=== PATIENT | male | born 1940 | race Caucasian/White ===

== ENCOUNTER 2022-04-17 14:11 | Outpatient (CLI) | payer MEDICARE, OTHER, SELFPAY ==
--- OUTSIDE RECORDS SUMMARY | 2022-04-17 14:14 | XMS_ITS | Encounter Summary ---
:1940 Author Organization [facility] Address [address] [place] [id number] Support Name Relationship Address Phone SUZANNE SERRANO Unavailable [phone] [place] [phone] SUZANNE SERRANO Unavailable [address] [place] [phone] Insurance Providers: All historical and current Section Date Range: From patient's date of to the date document was created.This section includes the names of all active insurance providers for the patient. Insurance Type of Plan Start of End of Group Member Insurance Policy P marcia's Provider Coverage Name Policy Policy Number ID Provider's Blanchard's Relationship Coverage Coverage Telephone Name to Policy Number Blanchard MEDICARE MEDICARE PART Feb 06, PART A [id number] ALANNAHGonzalo GARCÍA (WNR) (M) A 2002 [id number] [phone] LEONARD MEDICARE MEDICARE PART Feb 06, PART B [id number] Gonzalo SERRANO (WNR) (M) B 2002 [id number] [phone] LEONARD MEDICARE MEDICARE RR Feb 06, RR PART [id number] [phone] KADER LIK, PATIENT (WNR) (M) PART 2002 A [id number] SHERYL A MEDICARE MEDICARE RR Feb 06, RR PART [id number] [phone] KADER LIK, PATIENT (WNR) (M) PART 2002 B [id number] SHERYL B MEDICARE MEDICARE PART Jun 08, PART D [id number] LESLYE BAEZA, PATIENT PART D (M) D 2017 [id number] SHERYL (WNR) [employer] MED[employer] MEDIC Jun 08 [id number] [phone] DANIEL SERRANO [facility] 2009 [id number] SHERYL PINEDAR[employer]communications KAREN SUPPL EMENT UNION MEDICARE UPREH Jun 08 [id number] [address] SERRANO [facility] S 2009 [id number] SHERYL PACK (NO B EXC) Selected Encounter This section includes the information on record at [place] for the Encounter. Date/Time Encounter Type Encounter Description Reason Provider Source Apr 30, 2021 10:25 Outpatient Encounter CLINICAL PHARMACY AM IHE Encounter Template Text not used by [place] Plan of Treatment: Future Appointments (+ 6 months) and Future Tests (+/- 45 days) The Plan of Treatment section includes future care activities for the patient [facility] This section includes future appointments and future orders which are active, pending orscheduled.Future Appointments This section includes appointments that were scheduled to occur 6 months from the date of the Encounter, up to a maximum of 20 appointments. The data comes from all [place] treatment facilities. Appointment Date/Time Appointment Type Appointment Facili ty Name May 21, 2021 12:30 PM AMBULATORY - MEDICINE [facility] May 28, 2021 12:40 PM [facility] NONE [facility] May 30, 2021 08:00 AM [facility]UL[facility]ORY - NONE [facility] Aug 12, 2021 10:30 AM AMBULATORY - NONE [facility] Social History: Smoking Status (Most current) and Tobacco Use (All prior to encounter date) This section includes the most current, and the historical, smoking and tobacco-related health factors from the [place] facility where the Encounter took place.Current Smoking Status This section includes the most current smoking, or tobacco-related health factor, from the [place] facility where the Encounter took place. Date/Time Current Smoking Status Comment Facility Dec 10, 2018 12:57 PM VA-TOBACCO QUIT 15 YRS OR MORE [facility] Tobacco Use History This section includes a history of the smoking, or tobacco- related health factors, that were collected on or before the date of the Encounter. The data comes from the [place] facility where the Encounter took place. Date/Time Smoking Status/Tobacco Use Comment [facility] Dec 10, 2018 12:57 PM VA-TOBACCO QUIT 15 YRS OR MORE [facility] Feb 25, 2018 12:23 PM VA-TOBACCO FORMER USER MIN [facility] Feb 25, 2018 12:23 PM VA-TOBACCO QUIT 15 YRS OR MORE [facility] Apr 10, 2015 02:55 PM FORMER TOBACCO USER 7Y OR GREATER [facility] Apr 27, 2014 10:17 AM FORMER TOBACCO USER 7Y OR GREATER [facility] Jun 18, 2006 07:23 AM FORMER TOBACCO USER 7Y OR GREATER [facility] Advance Directives: All historical and current Section Date Range: From patient's date of to the date document was created. This section includes ALL of a patient's completed or amended [place] Advance and Rescinded Directives. The entries below indicate that a directive exists for the patient, but an actual copy is not included with this document. The data comes from all [place] facilities. Date Advance Directives Provider Source May 23, 2003 ADVANCE DIRECTIVE LORRIEHEIDI [facility] Encounter Notes: All associated encounter notes This section contains the clinical notes associated to the Encounter. Date/Time Encounter Note(s) Provider Source Apr 30, 2021 10:25 AM PHARMACY NOTE: AMIE GREGORY [facility] LOCAL TITLE: PHARMACY PROGRESS NOTE STANDARD TITLE: PHARMACY NOTE DATE OF NOTE: APR 30, 2021@10:25 ENTRY DATE: APR 30, 2021@10:25:42 AUTHOR: AMIE GREGORY EXP COSIGNER: URGENCY: STATUS: COMPLETED Symbicort Autoconversion to Wixela Per [employer] (P&T) Committee and facility leadership approval, this patient's Sym bicort MDI (budesonide/formoterol) was converted to Wixela (fluticasone/salmeterol) DPI inhaler at t he appropriate strength and schedule with one year of refills. An informatio nal letter describing the conversion and Wixela Inhub inhaler instructions have been provided to the patient. Thank you for your cooperation. /katey/ AMIE GREGORY [facility] PHARMACIST Signed: 04/30/2021 10:25 Receipt Acknowledged By: * AWAITING SIGNATURE * CASANDRA DALTON
--- OUTSIDE RECORDS SUMMARY | 2022-04-17 14:14 | XMS_ITS | Encounter Summary ---
:1940 Author Organization [facility] Address [address] [place] [id number] Support Name Relationship Address Phone SUZANNE SERRANO Unavailable [phone] [place] [phone] SUZANNE SERRANO Unavailable [address] [place] [phone] Insurance Providers: All historical and current Section [...] MEDICARE MEDICARE PART Feb 06, PART A [id number] 800 ALANNAHGonzalo GARCÍA (WNR) (M) A 2002 [id number] [phone] LEONARD MEDICARE MEDICARE PART Feb 06, PART B [id number] 800 Gonzalo SERRANO (WNR) (M) B 2002 [id number] [phone] [employer]ARD MEDICARE MEDICARE RR Feb 06, RR PART [id number] [phone] KADER LIK, PATIENT (WNR) (M) PART 2002 A [id number] SHERYL A MEDICARE MEDICARE RR Feb 06, RR PART [id number] [id number] KADER LIK, PATIENT (WNR) (M) PART 2002 B [id number] 2 SHERYL B MEDICARE MEDICARE PART Jun 08, PART D [id number] LESLYE BAEZA, PATIENT PART D (M) D 2017 [id number] 5 SHERYL (WN) [employer] MEDICARE MEDIC Jun 08 [id number] [phone] DANIEL SERRANO [facility] ARE 2009 [id number] SHERYL PACK KAREN SUPPL EMENT [employer] MEDICARE UPREH Jun 08 [id number] DELORES SERRANO [facility] S [id number] SHERYL PACK (NO B EXC) Selected Encounter This section includes the information on record at [place] for the Encounter. Date/Time Encounter Type Encounter Reason Provider Source Description Apr 29, 2021 Outpatient TELEPHONE PRIMARY ICD-10-CM PAM DALTON 02:45 PM Encounter CARE N18.6 End R F stage renal disease with Provider Comments: End Stage Renal Disease IHE Encounter Template Text not used by [place] Assessments - Encounter Diagnoses This section includes the primary and secondary diagnoses documented for the Encounter. 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 This section includes future appointments and future orders which are active, pending orscheduled.Future Appointments This section includes appointments that were scheduled to occur 6 months from the date of the Encounter, up to a maximum of 20 appointments. The data comes from all [place] treatment facilities. Appointment Date/Time Appointment Type Appointment Facili ty Name May 21, 2021 12:30 PM AMBULATORY - MEDICINE [facility] May 28, 2021 12:40 PM AMBULATORY - NONE [facility] May 30, 2021 08:00 AM AMBULATORY - NONE [facility] Aug 12, 2021 10:30 AM AMBULATORY - NONE [facility] Social History: Smoking Status (Most current) and Tobacco Use (All prior to encounter date) This section includes the most current, and the historical, smoking and tobacco-related health factors from the [facility] where the Encounter took place.Current Smoking Status This section includes the most current smoking, or tobacco-related health factor, from the [place] facility where the Encounter took place. Date/Time Current Smoking Status Comment Facility Dec 10, 2018 12:57 PM VA-TOBACCO QUIT 15 YRS OR MORE [facility] Tobacco Use History This section includes a history of the smoking, or tobacco- related health factors, that were collected on or before the date of the Encounter. The data comes from the [facility] where the Encounter took place. Date/Time Smoking Status/Tobacco Use Comment Facil it Dec 10, 2018 12:57 PM VA-TOBACCO QUIT 15 YRS OR MORE [facility] Feb 25, 2018 12:23 PM VA-TOBACCO FORMER USER MIN [facility] Feb 25, 2018 12:23 PM VA-TOBACCO QUIT 15 YRS OR MORE [facility] Apr 10, 2015 02:55 PM FORMER TOBACCO USER 7Y OR GREATER [facility] Apr 27, 2014 10:17 AM FORMER TOBACCO USER 7Y OR GREATER [facility] Jun 18, 2006 07:23 AM FORMER TOBACCO USER 7Y OR GREATER [facility] Advance Directives: All historical and current Section Date Range: From patient's date of to the date document was created. This section includes ALL of a patient's completed or amended [place] Advance and Rescinded Directives. The entries below indicate that a directive exists for the patient, but an actual copy is not included with this document. The data comes from all [facility]. Date Advance Directives Provider Source May 23, 2003 ADVANCE DIRECTIVE [facility] ANDREW [facility] Encounter Notes: All associated encounter notes This section contains the clinical notes associated to the Encounter. Date/Time Encounter Note(s) Provider Source Apr 29, 2021 12:33 PM PACT NOTE: CASANDRA DALTON [facility] LOCAL TITLE: MEDICINE CLINIC PROVIDER TELEPHONE NOTE STANDARD TITLE: PACT NOTE DATE OF NOTE: APR 29, 2021@12:33 ENTRY DATE: APR 29, 2021@12:33:13 AUTHOR: CASANDRA DALTON EXP COSIGNER: URGENCY: STATUS: COMPLETED History: Will be leaving for winter home soon. COVID pneumonia, hospitalized at [facility] x 9 days. Had been vaccinated last spring. Got booster since discha rge from [facility]. Feeling back at baseline. Saw his primary care physician in the community, Dr. Xiong, within the last week or 2. Feels tired after hemodialysis which now occurs in [place], [place] at [facility] dialysis center. They were dissatisfied w ith the service they received at the previous dialysis center. That dialysis c enter is making arrangements for continued hemodialysis while away in [place] a t a private facility. Saw Dr Prater, urologist, [facility], has ordered straight-cathed weekly. hospitalized at [place] as well, also fo r COVID-19, recovered, back at home, planning to move to [place] for the winte r with her . Heading to [place], near [facility] border, i n mid-May, back around the end of September. Objective: Sounds comfortable while speaking on the telepho ne. Further examination not possible. Assessment/Plan: 1. End stage renal disease, HD-dependent 2. 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 Hypertension, unable to check today. 4. Coronary artery disease, asymptomatic Plan: Medications are reviewed, reconciled and renewed as appropriate Continue care with his community providers Traveling consult entered for weekly [facility] [place] See me for clinic appointment in mid October, at the ir convenience. Appointment is requested to accommodate their dialysis sched ule. Education/Counseling: Time spent c python developer: 21-30 minutes /es/ CASANDRA DALTON MD Staff Physician Signed: 04/29/2021 16:54
--- OUTSIDE RECORDS SUMMARY | 2022-04-17 14:14 | XMS_ITS | Continuity of Care Document ---
:1940 Author Organization [facility] Care Team Providers Name Role Phone [facility] Unavailable Unavailable Problems Combined list of problems from Department of Defense and [facility] facilities. It does not include entries that were removed or entered in error. 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, [place] arteriosclerosis 2006 Entered [facility] By: LIZZETTE WEI Comment: s/p [id number] at [facility] 07/15 Diabetes mellitus Active [place] [facility] Diabetic Active Condition [place] neuropathy [facility] 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, [place] disease 2018 Entered [facility] By: PAM DALTON Comment: 10/2018: started hemodialysis @ [facility] [place] Diabetic Active Condition [place] Retinopathy [facility] Associated with type II Diabetes Mellitus Dyslipidemia Active Condition [place] [facility] Essential Active Condition [place] hypertension [facility] Ganglion of wrist Active [place] [facility] Hypothyroidism Active Condition [place] [facility] Indwelling Active Condition [facility] catheter inserted Psoriasis Nos Active Condition [place] [facility] Shared care - Active Condition Dec 02, [place] oracle consultant and GP 2018 Entered [facility] By: PAM DALTON Comment: [phone] Apr 29, 2021 Entered By: PAM DALTON Comment: Test Desk Operator: Dr James Pérez [phone] Apr 29, 2021 Entered By: PAM DALTON Comment: [facility], [place], [place] Cough (ICD-9-CM Inactive Condition 03/23/2013 [place] 786.2) [facility] Diabetic Foot Inactive Condition 03/23/2013 [place] Ulcer (ICD-9-CM [facility] CS 250.80/707.8) Diagnosis: Active Diagnosis [place] ICD-10-CM Z71.9 [facility] CS Counseling, unspecifiedwith Provider Comments: Counseling, unspecified Diagnosis: Active Diagnosis [place] ICD-10-CM E11.22 [facility] 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 Medications provided include 1) outpatient medications from the last 15 months, and 2) patient-reported medications. Medication Details Route Status Patient Prescription Prescription Last Ordering Order Source Instructions Expires Number Dispense Provider Date Date ALBUTEROL INHALE 2 INHALA ACTIVE 04/30/2022 [id number] [place] 04/30/ [place] 90MCG/ACTUA PUFFS BY TION 2020 [place] [facility]) INHALATI HCS INHL,ORAL,8 ON EVERY .5GM DOSE 4 HOURS COUNTER NEEDED FOR BREATHIN G SHAKE WELL (FOR IMMEDIAT E RELIEF). ALBUTEROL INHALE 2 INHALA DISCONT 01/12/2022 [id number] CECILIA ROBERTSMANN 01/14/ [place] 90MCG/ACTUA PUFFS BY TION INUE ,2020 [place] ([facility]) INHALATI HCS INHL,ORAL,8 ON EVERY .5GM DOSE 4 HOURS COUNTER NEEDED FOR BREATHIN G SHAKE WELL (FOR IMMEDIAT E RELIEF). BUDESONIDE INHALE 2 INHALA DISCONT 04/30/2022 [id number] SHA 05/31/ [place] 160MCG/FORM PUFFS BY TION INUED 2020 [place] OTEROL FUM INHALATI (EDIT) HCS 4.5MCG/SPRA ON TWICE Y A DAY TO INHL,ORAL,1 PREVENT 0.2GM TROUBLE BREATHIN G -RINSE MOUTH AFTER USING BUDESONIDE INHALE 2 INHALA DISCONT 03/16/2021 [id number] WEISSMANN 05/31/ [place] 160MCG/FORM PUFFS BY TION INUE 1 ,2019 [place] OTEROL FUM INHALATI HCS 4.5MCG/SPRA ON TWICE Y A DAY TO INHL,ORAL,1 PREVENT 0.2GM TROUBLE BREATHIN G -RINSE MOUTH AFTER USING CALCIUM TAKE ONE ORALLY ACTIVE 04/30/2022 [id number] WEISSM ANDRE 04/30/ [place] ACETATE CAPSULE 1 ,2020 [place] 667MG (CA BY MOUTH HCS 169MG) CAP THREE TIMES A DAY TO BIND PHOSPHAT E COENZYME TAKE ONE ORALLY ACTIVE [facility] 03/23/ [place] Q10 CAP/TAB TABLET ,2012 [place] BY MOUTH HCS EVERY DAY CYCLOSPORIN INSTILL BOTH ACTIVE 03/25/2023 [id number] FB-PU RFEE 04/07/ [place] E 0.05% 1 DROP EYES 2 RST,MATHEW 2021 [place] (PF) BOTH OD HCS EMULSION,OP EYES H,0.4ML TWICE A DAY DEXTROMETHO TAKE 5 ORALLY ACTIVE 04/30/2022 [id number] WE ISSIGOR 04/30/ [place] RPHAN HBR ML (1 2 ,2020 [place] 10MG/GUAIFE TEASPOON HCS NESIN FUL) BY 100MG/5ML MOUTH (SF & AF) EVERY 8 SYRUP HOURS NEEDED FOR COUGH DEXTROMETHO TAKE 5 ORALLY DISCONT 03/16/2021 [id number] WE ISSMANN 03/17/ [place] RPHAN HBR ML (1 INUE 1 ,2019 [place] 10MG/GUAIFE TEASPOON HCS NESIN FUL) BY 100MG/5ML MOUTH (SF & AF) EVERY 8 SYRUP HOURS NEEDED FOR COUGH DIALYVITE TAKE 1 ORALLY ACTIVE 04/30/2022 [id number] SHARDA ANDRE 05/31/ [place] TAB TABLET 2 ,2020 [place] BY MOUTH HCS EVERY DAY DIALYVITE TAKE 1 ORALLY DISCONT 03/16/2021 [id number] TRACIE SSMANN 03/15/ [place] TAB TABLET INUE 1 ,CASANDRA Perez 2019 [place] BY MOUTH HCS EVERY DAY FLUTICASONE INHALE 1 INHALA ACTIVE 05/01/2022 [id number] W EISSMANN 04/30/ [place] 250MCG/SALM PUFF BY TION 2 ,CASANDRA Perez 2020 [place] ETEROL INHALATI HCS 50MCG ON TWICE INHL,ORAL,D A DAY TO ISKUS,60 PREVENT TROUBLE BREATHIN G -RINSE MOUTH AFTER USING FLUTICASONE SPRAY 1 NASAL ACTIVE 04/30/2022 [id number] W EISSMANN 04/30/ [place] PROPIONATE SPRAY IN 1 ,CASANDRA Perez 2020 [place] 50MCG/SPRAY EACH HCS SOLN,NASAL, NOSTRIL 16GM EVERY DAY USE REGULARL Y FOR RELIEF OF ALLERGIE S/CONGES TION INSULIN,ASP INJECT 5 SUBCUT ACTIVE 04/30/2022 [id number] [facility] 05/31/ [place] ART,HUMAN UNITS ANEOUS 2 ,CASANDRA Perez 2020 [place] A 100U/ML,NOV UNDER [facility] OLOG,FLEXPE THE SKIN N,3ML TWICE A DAY TO DECREASE BLOOD SUGAR-- INJECT IMMEDIAT LINDA BEFORE MEAL (PEN FILL APPROVED ) REPLACES REGULAR INSULIN PEN INSULIN,ASP INJECT 5 SUBCUT DISCONT 03/16/2021 [id number] [facility] 03/16/ [place] ART,HUMAN UNITS ANEOUS INUE 1 ,CASANDRA Perez 2019 [place] A 100U/ML,NOV UNDER [facility] OLOG,FLEXPE THE SKIN N,3ML TWICE A DAY TO DECREASE BLOOD SUGAR-- INJECT IMMEDIAT LINDA BEFORE MEAL (PEN FILL APPROVED ) REPLACES REGULAR INSULIN PEN INSULIN,GLA INJECT SUBCUT ACTIVE 04/30/2022 [id number] CECILIA [facility] 05/24/ [place] RGINE,HUMAN 18 UNITS ANEOUS 2 ,CASANDRA Perez 2020 O [place] 100 UNIT/ML UNDER [facility] INJ,SOLOSTA THE SKIN R,3ML EVERY DAY FOR DIABETES DISCAR D PEN 28 DAYS AFTER INITIAL USE INSULIN,GLA INJECT SUBCUT DISCONT 03/16/2021 [id number] [facility] 03/16/ [place] RGINE,HUMAN 18 UNITS ANEOUS INUE 1 ,CASANDRA 2019 [place] 100 UNIT/ML UNDER HCS INJ,SOLOSTA THE SKIN R,3ML EVERY DAY FOR DIABETES DO NOT MIX WITH OTHER INSULINS ISOSORBIDE TAKE ORALLY ACTIVE 04/14/2023 [id number] BERRYMA N, 04/15/ [place] MONONITRATE ONE-HALF 2 RODRÍGUEZ H 2021 [place] 30MG TAB,SA TABLET HCS BY MOUTH EVERY EVENING FOR HEART ISOSORBIDE TAKE ONE ORALLY DISCONT 04/30/2022 [id number] [facility] 04/30/ [place] MONONITRATE TABLET INUED 2 ,CASANDRA 2020 [place] 30MG TAB,SA BY MOUTH HCS EVERY DAY FOR CHEST PAIN ISOSORBIDE TAKE ONE ORALLY 03/16/2021 [id number] [facility] 04/21/ [place] MONONITRATE TABLET 1 ,CASANDRA 2019 [place] 60MG TAB,SA BY MOUTH HCS EVERY DAY FOR CHEST PAIN LEVOTHYROXI TAKE ONE ORALLY ACTIVE 04/30/2022 [id number] [facility] 05/20/ [place] NE NA TABLET 2 ,CASANDRA 2020 [place] 175MCG TAB BY MOUTH HCS (SYNTHROID) EVERY DAY FOR THYROID LEVOTHYROXI TAKE ONE ORALLY DISCONT 02/28/2022 [id number] [facility] 03/01/ [place] NE NA TABLET INUE 1 ,CASANDRA 2020 [place] 175MCG TAB BY MOUTH HCS (SYNTHROID) EVERY DAY FOR THYROID LIDOCAINE APPLY TOPICA ACTIVE 04/30/2022 [id number] WE[place] [place] 04/30/ [place] 4% SMALL LLY 2 ,CASANDRA 2020 [place] CREAM,TOP AMOUNT HCS EVERY 4 HOURS NEEDED FOR NEUROPAT HY PAIN LIDOCAINE APPLY TOPICA DISCONT 03/16/2021 [id number] WEISSM ANDRE 03/16/ [place] 4% SMALL LLY INUE 1 ,CASANDRA Perez 2019 [place] [facility] CREAM,TOP AMOUNT HCS EVERY 4 HOURS NEEDED FOR NEUROPAT HY PAIN MARINE TAKE ORALLY ACTIVE [facility] 04/04/ [place] P LIPID (FISH 1200MG ,CASANDRA Perez 2010 [place] OIL) BY MOUTH HCS CAP,ORAL EVERY DAY MONTELUKAST TAKE ONE ORALLY ACTIVE 04/30/2022 [id number] [facility] 04/30/ [place] NA 10MG TAB TABLET 2 ,CASANDRA Perez 2020 [place] BY MOUTH HCS EVERY DAY NITROGLYCER DISSOLVE SUBLIN ACTIVE [facility] 04/04 / [place] IN 0.4MG CASANDRA HUMPHRIES 2010 [place] [facility] TAB,SUBLING TABLET HCS UAL UNDER THE TONGUE PRN NON VA MED USE MISCEL ACTIVE [facility] [place] NOT LISTED CASANDRA RUBIO 2012 [place] [facility] BEE S HCS VITAMIN COMPLEX EVERY DAY PANTOPRAZOL TAKE ONE ORALLY ACTIVE 04/30/2022 [id number] [facility] 05/17/ [place] E NA 40MG TABLET 2 ,CASANDRA Perez 2020 [place] A TAB,EC BY MOUTH HCS EVERY DAY ONE-HALF HOUR BEFORE EATING. PANTOPRAZOL TAKE ONE ORALLY DISCONT 03/16/2021 [id number] [facility] 04/26/ [place] E NA 40MG TABLET INUE 1 ,CASANDRA 2019 [place] A TAB,EC BY MOUTH HCS EVERY DAY ONE-HALF HOUR BEFORE EATING. PRAVASTATIN TAKE ONE ORALLY ACTIVE 04/30/2022 [id number] [facility] 05/20/ [place] NA 40MG TAB TABLET 2 ,CASANDRA Perez 2020 [place] BY MOUTH HCS AT BEDTIME FOR CHOLESTE ROL PRAVASTATIN TAKE ONE ORALLY DISCONT 02/28/2022 [id number] [facility] 03/01/ [place] NA 40MG TAB TABLET INUE 1 ,CASANDRA 2020 [place] [facility] BY MOUTH HCS AT BEDTIME FOR CHOLESTE ROL PROBIOTIC TAKE 1 ORALLY ACTIVE ME MALAIKA [place] CAP CAPSULE VELMA2013 [place] [facility] BY MOUTH HCS EVERY DAY TIOTROPIUM INHALE INHALA DISCONT 04/30/2022 [id number] CECILIA DONNELLY 05/27/ [place] 18MCG ONE TION INUED 1 ,CASANDRA Perez 2020 [place] CAP,INHL,30 CAPSULE (EDIT) HCS IN INHALER BY INHALATI ON EVERY DAY FOR BREATHIN G TIOTROPIUM INHALE INHALA DISCONT 03/16/2021 [id number] CECILIA DONNELLY 04/20/ [place] 18MCG ONE TION INUE 1 ,2019 [place] CAP,INHL,30 CAPSULE HCS IN INHALER BY INHALATI ON EVERY DAY FOR BREATHIN G TIOTROPIUM INHALE INHALA ACTIVE 05/01/2022 [id number] WEISSM ANDRE 05/27/ [place] 2.5MCG/ACTU TWO TION 2 ,2020 [place] AT PUFFS BY HCS INHL,ORAL,6 INHALATI 0D,4GM ON EVERY DAY FOR BREATHIN G VANICREAM APPLY TO TOPICA ACTIVE 04/30/2022 [id number] CECILIA DONNELLY 04/30/ [place] DRY SKIN LLY 2 ,2020 [place] [facility] TOPICALL HCS Y EVERY DAY NEEDED FOR DRY SKIN VITAMIN E TAKE 1 ORALLY ACTIVE [place] 05/01/ [place] 400UNT CAP CAPSULE VELMA 2013 [place] [facility] BY MOUTH HCS EVERY DAY ZINC TAKE ORALLY ACTIVE [place],IN 04/11/ [place] SULFATE TAB 50MG BY VELMA 2014 [place] A MOUTH HCS EVERY DAY Allergies, Adverse Reactions, Alerts Combined list of allergies from Department of Defense and Veterans 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 It does not include entries that were removed or entered in error. Substance Category Reaction Severity Reaction Status Date Comments S ource type Reported ATORVASTATIN Propensity Pain in Propensity active [place] to adverse lower limb to adverse 9 [place] [facility] reactions reactions HCS to drug to drug (finding) (finding) DOXYCYCLINE Propensity PRURITIS, Propensity active [place] to adverse Eruption to adverse 4 L IS VA reactions reactions HCS to drug to drug (finding) (finding) LIPITOR Propensity Cramp Propensity active [place] to adverse to adverse 0 N VA reactions reactions CLIN IC to drug to drug (finding) (finding) LISINOPRIL Propensity Abdominal Propensity active [place] to adverse discomfort to adverse 7 [place]IS VA reactions reactions HCS to drug to drug (finding) (finding) METOCLOPRAMI Propensity Gynecomast Propensity active [place] DE to adverse ia to adverse 0 N VA reactions reactions CLIN IC to drug to drug (finding) (finding) OMEPRAZOLE Propensity Diarrhea Propensity active [place] to adverse to adverse 0 N VA reactions reactions CLIN IC to drug to drug (finding) (finding) SIMVASTATIN Propensity MUSLCE Propensity active [place] to adverse CRAMPS to adverse 4 LI S VA reactions reactions HCS to drug to drug (finding) (finding) Immunizations Combined list of available immunizations from the Department of Defense and Veterans 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 Immunization Series Date Administered Site Reaction Lot CVX Drug St atus Comments Source Given By Number Code Cellophane Wrapping Examiner INFLUENZA, complet [place] UNSPECIFIED 2020 ed [place] [facility] FORMULATION HC S ZOSTER 2 complet [place] RECOMBINANT 2020 ed [place] [facility] ZOSTER 1 complet [place] RECOMBINANT 2019 ed [facility] [place] [facility] INFLUENZA, complet [place] SEASONAL, 2019 ed [place] [facility] INJECTABLE, HC S PRESERVATIVE FREE INFLUENZA, complet DAVITA [place] UNSPECIFIED 2018 ed CLINIC [facility] [facility] INFLUENZA, complet [place] SEASONAL, 2017 ed [place] [facility] INJECTABLE, HC S PRESERVATIVE FREE INFLUENZA, complet [place] HIGH DOSE 2016 ed [facility] SEASONAL [facility] INFLUENZA, complet [place] HIGH DOSE 2014 ed [facility] SE[facility] PNEUMOCOCCAL complet Wyet h [place] CONJUGATE PCV 2015 ed [id number] [facility] [facility] 13 08/22 HCS INFLUENZA, complet [place] UNSPECIFIED 2013 ed [facility] FORM[facility] INFLUENZA, complet [place] UNSPECIFIED 2012 ed [facility] [place] [facility] PNEUMOCOCCAL, complet Meghan ck, [place] UNSPECIFIED 2012 ed [id number], [facility] [facility] 14 TDAP complet [facility] NG 2012 ed [place] [facility] TDAP complet [place] 2012 ed [facility] ZOSTER LIVE complet [employer] and [place] 2012 ed co [facility] [facility] Lot#[id number] HCS 44Exp 11APR 14 INFLUENZA, complet [place] UNSPECIFIED 2011 ed [facility] FORM[facility]ATION [facility] INFLUENZA, complet [place] UNSPECIFIED 2010 ed [facility] [place] [facility] INFLUENZA, complet [place] UNSPECIFIED 2009 ed [place] [facility] INFLUENZA, complet [place] UNSPECIFIED 2008 ed [place] [facility] FORM[facility]ATION HC S TD(ADULT) complet M [place] UNSPECIFIED 2007 ed [place] [facility] FORM[facility]ATION [facility] S INFLUENZA complet M [place] (HISTORICAL) 2006 ed [facility] H[facility] INFLUENZA complet M [place] (HISTORICAL) 2005 ed O [facility] H[facility] INFLUENZA, complet [place] UNSPECIFIED 2004 ed [facility] FORM[facility]ATION [facility] S INFLUENZA, complet [place] UNSPECIFIED 2003 ed [facility] [place] [facility] FOR[facility] PNEUMOCOCCAL, complet [place] UNSPECIFIED 2003 ed [facility] TD(ADULT) complet due nex t [place] UNSPECIFIED 2003 ed year [facility] INFLUENZA complet pt stat es [place] (HISTORICAL) 2002 ed he had a [facility] Influenza HCS vaccinati on this yr TD(ADULT) complet M [place] UNSPECIFIED 1994 ed [place] [facility] FORM[facility]ATION [facility] S Vital Signs Combined list of inpatient and outpatient Vital Signs from Department of Defense and Veterans Affairs, ranging from 12 months to all on record, depending upon the facility. Vital Sign Value Date Comments Source SYSTOLIC BLOOD PRESSURE 117 11/05/2021 10:06:01 [facility] DIASTOLIC BLOOD PRESSURE 64 11/05/2021 10:06:01 [facility] PULSE OXIMETRY 95% 11/05/2021 10:06:01 [place] [facility] WEIGHT 208 11/05/2021 10:06:01 [place] [facility] BMI 28kg/m2 11/05/2021 10:06:01 [place] [facility] PAIN 0 11/05/2021 10:06:01 [place] [facility] HEIGHT 72 11/05/2021 10:06:01 [place] [facility] TEMPERATURE 97.9 11/05/2021 10:06:01 [place] [facility] PULSE 73 11/05/2021 10:06:01 [place] [facility] RESPIRATION 18 11/05/2021 10:06:[address] [facility] Encounters Combined list of: 1) Encounters from Department of Veterans Affairs facilities going back up to the last 18 months. 2) Encounters from the Department of Defense facilities going back up to 280 months. Location Location Encounter Encounter Reason Attending ADM DC Stat us Disposition Source Details Type Number For Provider Date Date Visit Outpatient [id number] 12/27 [place] Encounter [id number] /2020 [place] [facility] [place] 26464-6.61 12/28 [place] En[place] [id number] /2020 [facility] 24671-9.61 12/31 [place] En[place] [id number] /2020 [facility] 12778-7.61 01/10 [place] En[place] [id number] /2020 [facility] 20027-9.61 02/21 [place] En[place] [id number] /2020 [facility] 59836-0.61 03/06 [place] En[place] [id number] /2020 [facility] [facility] [place] 23410-2.61 03/09 [place] En[place] [id number] /2020 [facility] 77575-5.61 04/04 [place] En[place] [id number] /2020 [facility] 90131-8.61 04/05 [place] En[place] [id number] /2020 [facility] 78905-7.61 04/05 [place] En[place] [id number] /2020 [place] [facility] [place] 60655-8.61 04/09 [place] En[place] [id number] /2020 [place] Outpatient 75879-5.61 Diagnos [place], 04/29 [place] Encounter [id number] is: CASANDRA Perez /2020 [place] ICD-10- HCS CM N18.6 End stage renal disease
[facility] Provide r Comment s: End Stage Renal Disease Outpatient 09404-1.61 04/30 [place] Encounter [id number] /2020 [place] [facility] [place] 12951-2.61 Diagnos CHRISTENSE 05/21 [place] EDUCATION [id number] is: NATALIA Hancock /2020 [place] [facility] NOC ICD-10- C[facility]ACE HCS INDIVID CM G47.33 Obstruc tive sleep apnea (adult) ([facility])
with Provide r Comment s: Obstruc tive Sleep Apnea (Adult) ([facility]) Outpatient 37989-9.74 05/28 [facility] [facility] Encounter [id number] /2020 [facility] 50091-7.61 05/28 [place] Encounter [id number] /2020 [facility] Outpatient 83545-5.74 NARAYANAN-LEG 05/28 [place] Encounter [id number] OFF,GRADY /2020 E N [facility] Outpatient 82836-1.74 05/29 [place] Encounter [id number] /2020 EN [facility] Outpatient 23845-1.74 NARAYANAN-LEG 05/29 [place] Encounter [id number] OFF,GRADY E N [facility] Outpatient 78938-6.74 05/29 [place] En[place] [id number] /2020 [place] [facility] [place] 75546-1.74 05/30 [facility] [facility] Encounter [id number] /2020 EN [facility] CASE 47826-9.61 PAULETTE CHAUHAN 06/03 [place] MANAGEMENT [id number] N M /2020 [facility] Outpatient 25815-7.74 07/16 [place] En[place] [id number] /2021 [facility] [place] [facility] [place] 74169-6.74 07/17 [facility] Encounter [id number] /[facility]21 [facility] [place] 90041-5.61 07/25 [place] Encounter [id number] /2021 [facility] Outpatient 94108-1.74 07/25 [place] Encounter [id number] /[facility] [facility] [place] 39373-5.61 08/06 [place] Encounter [id number] [facility] Outpatient 45456-0.74 08/06 [place] [id number] [facility] [place] 96464-4.74 08/12 [place] Encounter [id number] /[facility]21 [facility] [place] 73224-5.74 08/12 [place] [id number] [facility] 57433-1.74 08/15 [place] Encounter [id number] /[facility]21 [facility] 39064-9.61 08/19 [place] Encounter [id number] /2021 [facility] Outpatient 02929-6.74 08/21 [place] Encounter [id number] /[facility]21 [facility] 50193-6.74 09/06 [place] Encounter [id number] /[facility]21 [facility] 77634-2.61 10/11 [place] Encounter [id number] /2021 [facility] Outpatient 24859-0.61 10/15 [place] Encounter [id number] /2021 [facility] OFFICE O/P 37179-1.61 Diagnos Saskia MATHEWS 11/05 [place] EST [place] [id number] is: ALLY H [facility] 40-54 MIN ICD-10- HCS CM E11.22 Type 2 diabete s mellitu s w diabeti c chronic kidney disease
wi Provide r Comment s: Type 2 Diabete s Mellitu s with Diabeti c Chronic Kidney Disease CASE [id number] PAULETTE CHAUHAN 03/20 [place] MANAGEMENT [id number] N [facility] CASE 46909-8.61 TIENPAULETTE 03/21 [place] MANAGEMENT [id number] N [facility] Outpatient 26769-4.61 03/27 [place] Encounter [id number] /2021 [facility] Outpatient 54967-8.61 03/27 [place] Encounter [id number] /2021 [facility] CASE 74498-7.61 Diagnos PAULETTE CHAUHAN 04/08 [place] [facility] [id number] is: N [facility] ICD-10- HCS CM Z71.9 Photocomposing Keyboard Operator ing, unspeci fied
with Provide r Comment s: Photocomposing Keyboard Operator ing, unspeci fied Outpatient 11513-9.61 04/10 [place] Encounter [id number] /2021 [facility] Social History Combined list of available smoking, tobacco, and other social history from Department of Defense andVeterans 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 Social History Type Response Date Comment Source Tobacco smoking status VA-TOBACCO QUIT 15 YRS 11/05/2021 [facility] NHIS OR MORE History of tobacco use VA-TOBACCO FORMER USER 11/05/2021 [facility] History of tobacco use VA-TOBACCO QUIT 15 YRS 07/28/2019 [facility] OR MORE History of tobacco use VA-TOBACCO QUIT 15 YRS 12/10/2018 [facility] HCS OR MORE History of tobacco use VA-TOBACCO FORMER USER 02/25/2018 [facility] History of tobacco use FORMER TOBACCO USER 7Y 04/10/2015 [facility] OR GREATER History of tobacco use FORMER TOBACCO USER 7Y 04/27/2014 [facility] OR GREATER History of tobacco use FORMER TOBACCO USER 7Y 06/18/2006 [facility] OR GREATER Plan of Care List of future care activities from Department Veterans [facility] facilities. Additional future care activities may be listed in the Assessment and Plan section. Date/Time Care Activity Care Activity Detail Facility 03/20/2022 Consult Order [facility] CONSULT-ROSARIO Oteroan salima's Choice Advance Directives List of completed, amended, or rescinded Advance Directives on record at Department Veterans 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 An actual copy of the Directive is not included. Date Advance Directive Provider Source 05/23/2003 ADVANCE DIRECTIVE KINGS ANDREW [facility]
--- OUTSIDE RECORDS SUMMARY | 2022-04-17 14:15 | XMS_ITS | Encounter Summary ---
:1940 Author Organization [facility] Address [address] [place] [address] Support Name Relationship Address Phone SUZANNE SERRANO Unavailable [address] [place] [address] SUZANNE SERRANO Unavailable [address] [place] [phone] Insurance Providers: All historical and current Section [...] MEDICARE MEDICARE PART Feb 06, PART A [id number] 800 ALANNAHGonzalo GARCÍA (WNR) (M) A 2002 [phone] LEONARD MEDICARE MEDICARE PART Feb 06, PART B [id number] 800 Gonzalo SERRANO (WNR) (M) B 2002 [id number] [phone] LEONARD MEDICARE MEDICARE RR Feb 06, RR PART [id number] [id number] KAWILMER LIK, PATIENT (WNR) (M) PART 2002 A [id number] SHERYL A MEDICARE MEDICARE RR Feb 06, RR PART [id number] [id number] MIK LIK, PATIENT (WNR) (M) PART 2002 B [id number] SHERYL B MEDICARE MEDICARE PART Jun 08, PART D [id number] LESLYE BAEZA, PATIENT PART D (M) D 2017 [id number] SHERYL (WNR) UNION MEDICARE MEDIC Jun 08 [id number] [phone] DANIEL SERRANO [facility] [id number] SHERYL [employer] KAREN SUPPL EMENT UNION MEDICARE UPREH Jun 08 [id number] DELORES SERRANOMERLENE JUSTIN SECONDARY S 2009 [id number] SHERYL PACK (NO B EXC) Selected Encounter This section includes the information on record at [place] for the Encounter. Date/Time Encounter Type Encounter Reason Provider Source Description May 21, 2021 PT EDUCATION SLEEP MEDICINE ICD-10-CM G47.33 [facility] 12:30 PM NOC INDIVID Obstructive sleep VALENTINA CANDACE apnea (adult) (pediatric) with Provider Comments: Obstructive Sleep Apnea (Adult) (Pediatric) IHE Encounter Template Text not used by [facility] Assessments - Encounter Diagnoses This section includes the primary and secondary diagnoses documented for the Encounter. Date/Time Primary/Secondary Diagnosis Name Provider Source Diagnosis May 21, 2021 PRIMARY Obstructive sleep [facility] [place] [facility] 01:51 PM apnea (adult) [facility] (pediatric) Plan of Treatment: Future Appointments (+ 6 months) and Future Tests (+/- 45 days) The Plan of Treatment section includes future care activities for the patient from all [place] treatmentfacilities. This section includes future appointments and future orders which are active, pending orscheduled.Future Appointments This section includes appointments that were scheduled to occur 6 months from the date of the Encounter, up to a maximum of 20 appointments. The data comes from all [place] treatment facilities. Appointment Date/Time Appointment Type Appointment Facili ty Name May 28, 2021 12:40 PM AMBULATORY - NONE [facility] May 30, 2021 08:00 AM AMBULATORY - NONE [facility] Aug 12, 2021 10:30 AM AMBULATORY - NONE [facility] November 05, 2021 10:00 AM AMBULATORY - MEDICINE [facility] Social History: Smoking Status (Most current) and Tobacco Use (All prior to encounter date) This section includes the most current, and the historical, smoking and tobacco-related health factors from the [facility] facility where the Encounter took place.Current Smoking Status This section includes the most current smoking, or tobacco-related health factor, from the [place] facility where the Encounter took place. Date/Time Current Smoking Status Comment Facility Dec 10, 2018 12:57 PM VA-TOBACCO QUIT 15 YRS OR MORE [facility] Tobacco Use History This section includes a history of the smoking, or tobacco- related health factors, that were collected on or before the date of the Encounter. The data comes from the [place] facility where the Encounter took place. Date/Time Smoking Status/Tobacco Use Comment Facil ity Dec 10, 2018 12:57 PM VA-TOBACCO QUIT 15 YRS OR MORE [facility] Feb 25, 2018 12:23 PM VA-TOBACCO FORMER USER MIN [facility] Feb 25, 2018 12:23 PM VA-TOBACCO QUIT 15 YRS OR MORE [facility] Apr 10, 2015 02:55 PM FORMER TOBACCO USER 7Y OR GREATER [facility] Apr 27, 2014 10:17 AM FORMER TOBACCO USER 7Y OR GREATER [facility] Jun 18, 2006 07:23 AM FORMER TOBACCO USER 7Y OR GREATER [facility] Advance Directives: All historical and current Section Date Range: From patient's date of to the date document was created. This section includes ALL of a patient's completed or amended [place] Advance and Rescinded Directives. The entries below indicate that a directive exists for the patient, but an actual copy is not included with this document. The data comes from all [facility]. Date Advance Directives Provider Source May 23, 2003 ADVANCE DIRECTIVE KINGS ANDREW [facility] Encounter Notes: All associated encounter notes This section contains the clinical notes associated to the Encounter. Date/Time Encounter Note(s) Provider Source May 21, 2021 01:48 PM SLEEP MEDICINE NOTE: NATALIA BRIGHT [facility] LOCAL TITLE: SLEEP MEDICINE NOTE CANDACE STANDARD TITLE: SLEEP MEDICINE NOTE DATE OF NOTE: MAY 21, 2021@13:48 ENTRY DATE: MAY 21, 2021@13:48:46 AUTHOR: NATALIA BRIGHT EXP COSIGNER: URGENCY: STATUS: COMPLETED HOME CONTINUOUS POSITIVE AIRWAY PRESSURE(CPAP) P JOHNSON OF CARE/EDUCATION Diagnosis: CHLOE Prescription: Date of Prescription: May APAP Minimum Pressure 10 cm/H2O Maximum Pressure 20 cm/H2O EPR 1 cm/H2O REASON FOR VISIT Equipment Replacement machine issued - older S9 issued 201 4 has stopped working as designed Download May Current settings: APAP 10-20 cmH2O 95% pressure: 12 cmH2O Compliance: Usage 100%; 7.5 average hours/night Mask seal: leak 34 L/min Apnea/Hypopnea Index (AHI): 1.5 per hour EDUCATION IDENTIFIED NEEDS: Review of disease, and correct operation of medical equipment. Discussed increase risk of motor vehicle acciden ts due to sleepiness. Patient cautioned not to drive if drowsy. PARTICIPANTS: Patient TEACHING STRATEGY: 1:1 instruction OBJECTIVES: Demonstrates the safe operation of a APAP unit, Demonstrates Ramp use, Demonstrates trial of prescribed pressure, Demon strates adjusting the mask, Demonstrates adding humidity/heat, Demonstrates cleaning of equipment ASSESSMENT: Verbalizes critical information about the topic Written instructions including equipment use and maintenance as well as phone number for questions/supplies provided wit h all issued equipment. FOLLOW-UP Patient gave consent to view PAP data or change settings remotely via wireless modem. Patient instructed to call with problems/questio ns or if symptoms aren't improved. /katey/ NATALIA BRIGHT RRT QUEBRACHO TANNER Signed: 05/21/2021 13:51
--- OUTSIDE RECORDS SUMMARY | 2022-04-17 14:17 | XMS_ITS | Encounter Summary ---
:1940 Author Organization [facility] Address [address] [place] [address] Support Name Relationship Address Phone SUZANNE SERRANO Unavailable [address] [place] [phone] SUZANNE SERRANO Unavailable [address] [place] [phone] Insurance Providers: All historical and current Section Date Range: From patient's date of to the date document was created.This section includes the names of all active insurance providers for the patient. Insurance Type of Plan Start of End of Group Member Insurance Policy P atibis's Provider Coverage Name Policy Policy Number ID Provider's Blanchard's Relationship Coverage Coverage Telephone Name to Policy Number Blanchard MEDICARE MEDICARE PART Feb 06, PART B [id number] 800 Gonzalo SERRANO (WNR) (M) B 2002 [id number] [phone] LEONARD MEDICARE MEDICARE PART Feb 06, PART A [id number] 800 Gonzalo SERRANO (WNR) (M) A 2002 [id number] [phone] LEONARD MEDICARE MEDICARE RR Feb 06, RR PART [id number] KAWILMER LIK, PATIENT (WNR) (M) PART 2002 A [id number] SHERYL A MEDICARE MEDICARE RR Feb 06, RR PART [id number] MIK LIK, PATIENT (WNR) (M) PART 2002 B [id number] 2 SHERYL B MEDICARE MEDICARE PART Jun 08, PART D [id number] LESLYE BAEZA, PATIENT PART D (M) D 2017 [id number] 5 SHERYL (WNR) UNION MEDICARE MEDIC Jun 08 [id number] [phone] DANIEL SERRANO PACIFIC SUPPLEMEN ARE 2009 [id number] SHERYL PACK KAREN SUPPL EMENT UNION MEDICARE UPREH Jun 08 [id number] DELORES SERRANO TIENT [facility] SECONDARY S [id number] SHERYL PACK (NO B EXC) Selected Encounter This section includes the information on record at [place] for the Encounter. Date/Time Encounter Type Encounter Description Reason Provider Source May 28, 2021 12:00 Outpatient Encounter ADMIN PAT ACTIVTIES AM (MASNONCT) IHE Encounter Template Text not used by [place] Plan of Treatment: Future Appointments (+ 6 months) and Future Tests (+/- 45 days) The Plan of Treatment section includes future care activities for the patient from all [place] treatmentfacilities. This section includes future appointments and future orders which are active, pending orscheduled.Future Appointments This section includes appointments that were scheduled to occur 6 months from the date of the Encounter, up to a maximum of 20 appointments. The data comes from all [place] treatment facilities. Appointment Date/Time Appointment Type Appointment Facili ty Name May 30, 2021 08:00 AM AMBULATORY - NONE [facility] Aug 12, 2021 10:30 AM AMBULATORY - NONE [facility] November 05, 2021 10:00 AM AMBULATORY - MEDICINE [facility] Advance Directives: All historical and current Section Date Range: From patient's date of to the date document was created. This section includes ALL of a patient's completed or amended [place] Advance and Rescinded Directives. The entries below indicate that a directive exists for the patient, but an actual copy is not included with this document. The data comes from all [place] facilities. Date Advance Directives Provider Source May 23, [address] [facility] Encounter Notes: All associated encounter notes This section contains the clinical notes associated to the Encounter. Date/Time Encounter Note(s) Provider Source May 28, 2021 12:00 AM NONVA CONSULT: [facility] LOCAL TITLE: COMMUNITY CARE-CONSULT RESULT NOTE STANDARD TITLE: NONVA CONSULT DATE OF NOTE: MAY 28, 2021 ENTRY DATE: MAY 30@11:18:39 AUTHOR: GABRIEL CHANDLER EXP COSIGNER: URGENCY: STATUS: COMPLETED VistA Imaging - Scanned Document UROLOGY ORDERS 05/28/2021 DR. VICTORINO AVILA SCANNED DOCUMENT SIGNATURE NOT REQUIRED Electronically Filed: 05/30/2021 by: GABRIEL CHANDLER May 28, 2021 12:00 AM NONVA CONSULT: [facility] LOCAL TITLE: COMMUNITY CARE-CONSULT RESULT NOTE STANDARD TITLE: NONVA CONSULT DATE OF NOTE: MAY 28, 2021 ENTRY DATE: MAY 30@11:20:27 AUTHOR: GABRIEL CHANDLER EXP COSIGNER: URGENCY: STATUS: COMPLETED VistA Imaging - Scanned Document UROLOGY NOTE 05/28/2021 DR. VICTORINO AVILA SCANNED DOCUMENT SIGNATURE NOT REQUIRED Electronically Filed: 05/30/2021 by: GABRIEL CHANDLER
--- OUTSIDE RECORDS SUMMARY | 2022-04-17 14:17 | XMS_ITS | Encounter Summary ---
:1940 Author Organization [facility] Address [address] [place] [address] Support Name Relationship Address Phone SUZANNE SERRANO Unavailable [address] [place] [phone] SUZANNE SERRANO Unavailable [address] [place] [phone] Insurance Providers: All historical and current Section [...] MEDICARE MEDICARE PART Feb 06, PART A [id number] 800 Gonzalo SERRANO (WNR) (M) A 2002 [id number] [phone] LEONARD MEDICARE MEDICARE PART Feb 06, PART B [id number] 800 Gonzalo SERRANO (WNR) (M) B 2002 [id number] [phone] LEONARD MEDICARE MEDICARE RR Feb 06, RR PART [id number] [id number] MIK CHAND, PATIENT (WNR) (M) PART 2002 A [id number] SHERYL A MEDICARE MEDICARE RR Feb 06, RR PART [id number] [phone] MIK CHAND, PATIENT (WNR) (M) PART 2002 B [id number] 2 SHERYL B MEDICARE MEDICARE PART Jun 08, PART D [id number] LESLYE BAEZA, PATIENT PART D (M) D 2017 [id number] 5 SHERYL (WNR) UNION MEDICARE MEDIC Jun 08 [id number] [phone] DANIEL SERRANO PACIFIC SUPPLEMEN ARE 2009 [id number] SHERYL PACK KAREN SUPPL EMENT UNION MEDICARE UPREH Jun 08 [id number] DELORES SERRANO TIEMERLENE COMO SECONDARY S 2009 [id number] SHERYL PACK (NO B EXC) Selected Encounter This section includes the information on record at [place] for the Encounter. Date/Time Encounter Type Encounter Description Reason Provider Source May 29, 2021 01:58 Outpatient Encounter VA-REFER TO [facility] PROV PM IHE Encounter Template Text not used by [place] Plan of Treatment: Future Appointments (+ 6 months) and Future Tests (+/- 45 days) The Plan of Treatment section includes future care activities for the patient from all [place] treatmentfacilities. This section includes future appointments and future orders which are active, pending orscheduled.Future Appointments This section includes appointments that were scheduled to occur 6 months from the date of the Encounter, up to a maximum of 20 appointments. The data comes from all [place] treatment facilities. Appointment Date/Time Appointment Type Appointment Facili ty Name May 30, 2021 08:00 AM AMBULATORY - NONE [facility] Aug 12, 2021 10:30 AM AMBULATORY - NONE [facility] November 05, 2021 10:00 AM AMBULATORY - MEDICINE [facility] CS Advance Directives: All historical and current Section Date Range: From patient's date of to the date document was created. This section includes ALL of a patient's completed or amended [place] Advance and Rescinded Directives. The entries below indicate that a directive exists for the patient, but an actual copy is not included with this document. The data comes from all [place] facilities. Date Advance Directives Provider Source May 23, 2003 ADVANCE DIRECTIVE [facility] ANDREW [facility] Encounter Notes: All associated encounter notes This section contains the clinical notes associated to the Encounter. Date/Time Encounter Note(s) Provider Source May 29, 2021 02:03 HOME HEALTH INITIAL EVALUATION NOTE: [facility] TITLE: HOME CARE [place] SKILLED NOTE STANDARD TITLE: HOME HEALTH INITIAL EVALUATION N OTE DATE OF NOTE: MAY 29, 2021@14:03 ENTRY DATE: MAY 29, 2021@14:03:18 AUTHOR: CASANDRA LEWIS EXP COSIGNER: URGENCY: STATUS: COMPLETED PCP Certification: I certify that this patient is under my care and that I, or a Nurse Practitioner or Physician Heel Reducer working with me or a Physician who cared for the patient in an acute or post-ac [place] facility had an encounter related to the primary reason the linda ent requires Home Health. HOMEBOUND: PLEASE NOTE PATIENTS DO NOT NEED TO MEET MEDICARE HOMEBOUND CRITERIA FOR THESE HOME HEALTH SERVICES. IS homebound as absences from the home r equires considerable and taxing effort due to: Decreased activity darien erance, endurance, Requires aid of supportive device walker, cane, wheelchair) to leave home HOME HEALTH ORDERS: SEOC: SKILLED HOME CARE BUNDLED PATIENT INFORMATION: Name: SHERYL SERRANO : Feb SSN: [id number] Address: [address] [place] [phone] Provider: [facility] Address: [address] [place] [address] City: [place] State: [place] Zip: [address] EMAIL: [email or web address] NPI : [id number] [place] Ordering Provider: DR. NARAYANAN NPI# [id number] CATEGORY OF CARE/TYPE OF SPECIALTY: HOME HEALTH Diagnosis Code/Chief Complaint: Benign prostatic hyperplasia with lower urinary tract symptoms(ICD-10-CM N40.1) TYPE OF SERVICE/PROCEDURE, NUMBER OF VISITS, SONIA QUENCY AND DURATION: FOLLOW PHYSICIAN ORDERS 1. [facility] SERVICES FOR: General Assessm ent, education, Treatments. MONAE CATHETER MANAGEMENT. WEEKLY BLADDER DRAINAGE USING A 16 [place]UGUESE COUDE CATHETER. SKILLED NURSE TO FLUSH/IR RIGATE BLADDER WITH SALINE UNTIL URINE FLOWS CLEAR. FREQUENCY: PER PCP ORDER AND CLINICALLY NECE SSARY AND DETERMINED BY TREATMENT PLAN EPISODE OF CARE: CERTIFICATION PERIOD EFFECTIVE: 05-29-2021 Eligibility Type/FUNDING for this Episode of Car e is: [facility] MAIL OR FAX 485's + PHYSICIAN ORDERS (must inclu de patient SS# + )+ SELF ADDRESSED STAMPED ENVELOPE TO: Facility Name: [facility] [address] Address: [address] City: [place] State: [place] Zip: [address] OR Fax ORDERS TO: [phone](CALL TO MAKE SURE THEY WERE RECEIVED) /es/ CASANDRA LEWIS RN, MSN Signed: 05/29/2021 14:03 May 29, 2021 02:01 [facility] NOTE: CASANDRA LEWISIVY [facility] PM << Interdisciplinary Note >> LOCATION: B [facility] CCT REFERRAL VISIT DATE: MAY 092020@13:58 LOCAL TITLE: [facility] PARENT EXTENDED CARE REFERRAL(P 6) STANDARD TITLE: [facility] NOTE DATE OF NOTE: MAY 29, 2021@14:01 ENTRY DATE: MAY 29, 2021@14:01:50 AUTHOR: CASANDRA LEWIS EXP COSIGNER: URGENCY: STATUS: COMPLETED [facility] PARENT EXTENDED CARE REFERRAL(P6) Has A DDENDA [facility] PARENT EXTENDED CARE REFERRAL /es/ CASANDRA LEWIS RN, MSN Signed: 05/29/2021 14:02 07/17/2021 ADDENDUM STATUS: COMPLETED Monae Catheter / Bladder Irr igation to be performed with 80 mg of Gentramicin in 500mL of sterile saline /es/ GRADY WADE M.D. GROUND WATER PUMP INSTALLER Signed: 07/17/2021 10:13 << Interdisciplinary Note - Cont. >> LOCAL TITLE: [facility] REFERRAL PHYSICIAN/LIP NOTE (C6 ) STANDARD TITLE: GERIATRIC MEDICINE REFERRAL NOTE DATE OF NOTE: MAY 29, 2021@11:28 STATUS: COMPLET ED GOALS OF CARE: FPC care (e.g., manage wounds, medi johnathon devices, catheters, ostomy). REFERRING TO WHICH PROGRAM: Skilled care in home ESTIMATED DURATION OF SERVICES: 2-3 months PROGNOSIS: In the last 7 days, the patient has experienced a flare-up of a recurrent or chronic health problem. The direct care staff (MD, RN, Rehabilitation) thinks the patient IS capable of increased independence (in ADL's, IA DL's, or mobility). The patient DOES NOT HAVE a limited life expect chrissy (likely to be less than 6 months). WEIGHT BEARING STATUS: Patient is partial weight-bearing. DIET: Patient is on a modified diet (specify): Diabetic diet EQUIPMENT NEEDED: SUPPLIES NEEDED: Catheters Tubing Saline Consult to Geriatrics/Extended Care ordered. /es/ GRADY WADE M.D. GROUND WATER PUMP INSTALLER Signed: 05/29/2021 11:31
--- OUTSIDE RECORDS SUMMARY | 2022-04-17 14:17 | XMS_ITS | Encounter Summary ---
:1940 Author Organization [facility] Address [address] [place] [address] Support Name Relationship Address Phone SUZANNE SERRANO Unavailable [address] [place] [phone] SUZANNE SERRANO Unavailable [address] [place] [phone] Insurance Providers: All historical and current Section [...] MEDICARE MEDICARE PART Feb 06, PART A [id number] 800 ALANNAHGonzalo GARCÍA (WNR) (M) A 2002 [id number] [phone] LEONARD MEDICARE MEDICARE PART Feb 06, PART B [id number] 800 ALANNAHGonzalo GARCÍA (WNR) (M) B 2002 [id number] [phone] LEONARD MEDICARE MEDICARE RR Feb 06, RR PART [id number] [id number] KAWILMER LIK, PATIENT (WNR) (M) PART 2002 A [id number] SHERYL A MEDICARE MEDICARE RR Feb 06, RR PART [id number] [id number] KAWILMER LIK, PATIENT (WNR) (M) PART 2002 B [id number] 2 SHERYL B MEDICARE MEDICARE PART Jun 08, PART D [id number] [id number] LESLYE BAEZA, PATIENT PART D (M) D 2017 [id number] 5 SHERYL (WNR) UNION MEDICARE MEDIC Jun 08 [id number] [phone] DANIEL [facility]ERR[facility]O [facility] 2009 [id number] SHERYL CHPandaBed KAREN SUPPL EMENT UNION MEDICARE UPREH Jun 08 [id number] DELORES SERRANO TIENT [facility] S 2009 [id number] SHERYL PACK (NO B EXC) Selected Encounter This section includes the information on record at [place] for the Encounter. Date/Time Encounter Type Encounter Reason Provider Source Description May 28, 2021 Outpatient COMMUNITY [facility]ARE MAGDALENE WADE 12:40 PM Encounter CONSULT SHAILA PARSONS Encounter Template Text not used by [place] Plan of Treatment: Future Appointments (+ 6 months) and Future Tests (+/- 45 days) The Plan of Treatment section includes future care activities for the patient from all [place] treatmentfacilities. This section includes future appointments and future orders which are active, pending orscheduled.Future Appointments This section includes appointments that were scheduled to occur 6 months from the date of the Encounter, up to a maximum of 20 appointments. The data comes from all [place] treatment facilities. Appointment Date/Time Appointment Type Appointment Facili ty Name May 30, 2021 08:00 AM AMBULATORY - NONE [facility] Aug 12, 2021 10:30 AM AMBULATORY - NONE [facility] November 05, 2021 10:00 AM AM[facility]ULATORY - MEDICINE [facility] Advance Directives: All historical and current Section Date Range: From patient's date of to the date document was created. This section includes ALL of a patient's completed or amended [place] Advance and Rescinded Directives. The entries below indicate that a directive exists for the patient, but an actual copy is not included with this document. The data comes from all [place] facilities. Date Advance Directives Provider Source May 23, 2003 ADVANCE DIRECTIVE [facility] AND[facility]W [facility] Encounter Notes: All associated encounter notes This section contains the clinical notes associated to the Encounter. Date/Time Encounter Note(s) Provider Source Jul 17, 2021 11:53 GERIATRIC MEDICINE REFERRAL NOTE: GRADY HUDSON [facility] AM LOCATION: [facility]-UROLOGY VISIT DATE: MAY 28 021@12:40 P[place]AVI LOCAL TITLE: [facility] REFERRAL PHYSICIAN/LIP NOTE (C6 ) STANDARD TITLE: GERIATRIC MEDICINE REFERRAL NOTE DATE OF NOTE: JUL 17, 2021@11:53 ENTRY DATE: JUL 17, 2021@11:53:21 AUTHOR: GRADY WADE EXP COSIGNER: URGENCY: STATUS: COMPLETED GOALS OF CARE: senior living care (e.g., manage wounds, medi johnathon devices, catheters, ostomy). REFERRING TO WHICH PROGRAM: Skilled care in home ESTIMATED DURATION OF SERVICES: One month PROGNOSIS: In the last 7 days, the [...] (specify): Diabetic diet EQUIPMENT NEEDED: SUPPLIES NEEDED: Saline Consult to Geriatrics/Extended Care ordered. /katey/ GRADY WADE M.D. HAND ZIPPER TRIMMER Signed: 07/17/2021 11:57 --- Interdisciplinary Note --- << Interdisciplinary Note >> LOCATION: [facility] CCT REFERRAL VISIT DATE: Jul@14:16 LOCAL TITLE: [facility] PARENT EXTENDED CARE REFERRAL(P 6) STANDARD TITLE: [facility] NOTE DATE OF NOTE: JUL 17, 2021@14:21 ENTRY DATE: JUL 17, 2021@14:21:41 AUTHOR: CASANDRA LEWIS EXP COSIGNER: URGENCY: STATUS: COMPLETED [facility] PARENT EXTENDED CARE REFERRAL /es/ CASANDRA LEWIS RN, MSN Signed: 07/17/2021 14:22 << Interdisciplinary Note - Cont. >> LOCAL TITLE: [facility] REFERRAL PHYSICIAN/LIP NOTE (C6 ) STANDARD TITLE: GERIATRIC MEDICINE REFERRAL NOTE DATE OF NOTE: JUL 17, 2021@11:53 STATUS: COMPLET ED GOALS OF CARE: senior living care (e.g., manage wounds, medi johnathon devices, catheters, ostomy). REFERRING TO WHICH PROGRAM: Skilled care in home ESTIMATED DURATION OF SERVICES: One month PROGNOSIS: In the last 7 days, the [...] (specify): Diabetic diet EQUIPMENT NEEDED: SUPPLIES NEEDED: Saline Consult to Geriatrics/Extended Care ordered. /katey/ GRADY WADE M.D. HAND ZIPPER TRIMMER Signed: 07/17/2021 11:57
--- OUTSIDE RECORDS SUMMARY | 2022-04-17 14:17 | XMS_ITS | Encounter Summary ---
:1940 Author Organization [facility] Address [address] [place] [address] Support Name Relationship Address Phone SUZANNE SERRANO Unavailable [address] [place] [phone] SUZANNE SERRANO Unavailable [address] [place] [phone] Insurance Providers: All historical and current Section [...] MEDICARE MEDICARE PART Feb 06, PART A [id number] 800 ALANNAHGonzalo GARCÍA (WNR) (M) A 2002 [id number] LEONARD MEDICARE MEDICARE PART Feb 06, PART B [id number] 800 ALANNAHGonzalo GARCÍA (WNR) (M) B 2002 [phone] LEONARD MEDICARE MEDICARE RR Feb 06, RR PART [id number] KAWILMER LIK, PATIENT (WNR) (M) PART 2002 A [id number] SHERYL A MEDICARE MEDICARE RR Feb 06, RR PART [id number] KADER LIK, PATIENT (WNR) (M) PART 2002 B [id number] SHERYL B MEDICARE MEDICARE PART Jun 08, PART D [id number] LESLYE BAEZA, PATIENT PART D (M) D 2017 [id number] SHERYL (WNR) UNION MEDICARE MEDIC Jun 08 [id number] [phone] JANETTEVannesa DANIEL PACIFIC SUPPLEMEN ARE 2009 [id number] SHERYL PACK KAREN SUPPL EMENT UNION MEDICARE UPREH Jun 08 [id number] DELORES SERRANOMERLENE SOLANO [facility]ARY S 2011 [id number] SHERYL PACK (NO B EXC) Selected Encounter This section includes the information on record at [place] for the Encounter. Date/Time Encounter Type Encounter Description Reason Provider Source May 29, 2021 11:17 Outpatient Encounter COMMUNITY CARE AM CONSULT IHE Encounter Template Text not used by [place] Plan of Treatment: Future Appointments (+ 6 months) and Future Tests (+/- 45 days) The Plan of Treatment section includes future care activities for the patient from all [place] treatmentfacilities. This section includes future appointments and future orders which are active, pending orscheduled.Future Appointments This section includes appointments that were scheduled to occur 6 months from the date of the Encounter, up to a maximum of 20 appointments. The data comes from all [place] treatment facilities. Appointment Date/Time Appointment Type Appointment Facili ty Name May 30, 2021 08:00 AM AMBULATORY - NONE [facility] Aug 12, 2021 10:30 AM AMBULATORY - NONE [facility] November 05, 2021 10:00 AM AMBULATORY - MEDICINE [facility] Advance Directives: All historical and current Section Date Range: From patient's date of to the date document was created. This section includes ALL of a patient's completed or amended [place] Advance and Rescinded Directives. The entries below indicate that a directive exists for the patient, but an actual copy is not included with this document. The data comes from all [place] facilities. Date Advance Directives Provider Source May 23, 2003 ADVANCE DIRECTIVE [facility] Encounter Notes: All associated encounter notes This section contains the clinical notes associated to the Encounter. Date/Time Encounter Note(s) Provider Source May 29, 2021 11:17 AM COMMUNICATION NOTE: EZ MANUEL SYL [facility] LOCAL TITLE: [facility] NOTE STANDARD TITLE: COMMUNICATION NOTE DATE OF NOTE: MAY 29, 2021@11:17 ENTRY DATE: MAY 29, 2021@11:17:38 AUTHOR: EZ MANUEL EXP COSIGNER: URGENCY: STATUS: COMPLETED SECONDARY AUTHORIZATION REQUEST RECEIVED Received medical records [facility] verito Martins which were forwarded to [facility] for scanning in to [place]. The provider is recommendi ng the services listed below, will notify PACT Provider to add care/di agnostic requested as an added comment to consult indicated below. REFER TO ORIGINAL CONSULT: 04/30/2021 [facility] Consult: [id number] Dr. Trey Martins is request ing Authorization for Skilled Home Health Services. being treated for urinary retention and requires weekly bladder irrigation. (Services to begin this week before [place]) [employer] [facility] [address] [place] [id number] P: [phone] F: [phone] REQUESTED SERVICES/PROCEDURES: Treatment/Orders: Using Asep tic technique and sterile supplies, Skilled Nurse to perform weekly bladder drain age using a 16 [place] Cou[place] Catheter. Skilled Nurse to flush/irrigate bladder with saline until urin e flows clear. R33.9 Retention of Urine, unspecified N31.9 Neuromuscular Dysfunction of Bladder, unsp ecified N18.6 End Stage Renal Disease E11.8 Type 2 Diabetes Mellitus with unspecified Complications /es/ EZ MAR BENÍTEZ, RN Signed: 05/29/2021 11:18 Receipt Acknowledged By: * AWAITING SIGNATURE * GRADY WADE
--- OUTSIDE RECORDS SUMMARY | 2022-04-17 14:17 | XMS_ITS | Encounter Summary ---
:1940 Author Organization Department [facility] Address [address] [place] [address] Support Name Relationship Address Phone SUZANNE SERRANO Unavailable [address] [place] [phone] SUZANNE SERRANO Unavailable [address] [place] [phone] Insurance Providers: All historical and current Section [...] MEDICARE MEDICARE PART Feb 06, PART A [id number] 800 ALANNAHGonzalo GARCÍA (WNR) (M) A 2002 [id number] LEONARD MEDICARE MEDICARE PART Feb 06, PART B [id number] 800 Gonzalo SERRANO (WNR) (M) B 2002 [id number] LEONARD MEDICARE MEDICARE RR Feb 06, RR PART [id number] KADER LIK, PATIENT (WNR) (M) PART 2002 A [id number] SHERYL A MEDICARE MEDICARE RR Feb 06, RR PART [id number] KADER LIK, PATIENT (WNR) (M) PART 2002 B [id number] 2 SHERYL B MEDICARE MEDICARE PART Jun 08, PART D [id number] LESLYE BAEZA, PATIENT PART D (M) D 2017 [id number] 5 SHERYL (WNR) UNION MEDICARE MEDIC Jun 08 [id number] [phone] DANIEL SERRANO [facility] ARE 2009 [id number] SHERYL [employer] KAREN SUPPL EMENT UNION MEDICARE UPREH Jun 08 [id number] DELOR[address] SERRANO TIENT MERGED WITH [facility] S 2009 [id number] SHERYL PACK (NO B EXC) Selected Encounter This section includes the information on record at [place] for the Encounter. Date/Time Encounter Type Encounter Reason Provider Source Description May 29, 2021 Outpatient PRIMARY MAGDALENE WADE 11:28 AM Encounter CARE/MEDICINE [facility] Encounter Template Text not used by [place] Plan of Treatment: Future Appointments (+ 6 months) and Future Tests (+/- 45 days) The Plan of Treatment section includes future care activities for the patient from all [place] treatmentfacilities. This section includes future appointments and future orders which are active, pending orscheduled.Future Appointments This section includes appointments that were scheduled to occur 6 months from the date of the Encounter, up to a maximum of 20 appointments. The data comes from all [place] treatment facilities. Appointment Date/Time Appointment Type Appointment Facili ty Name May 30, 2021 08:00 AM AMBULATORY - NONE [facility] Aug 12, 2021 10:30 AM AMBULATORY - NONE [facility] November 05, 2021 10:00 AM AMBULATORY - MEDICINE [facility] Advance Directives: All historical and current Section Date Range: From patient's date of to the date document was created. This section includes ALL of a patient's completed or amended [place] Advance and Rescinded Directives. The entries below indicate that a directive exists for the patient, but an actual copy is not included with this document. The data comes from all [place] facilities. Date Advance Directives Provider Source May 23, 2003 ADVANCE DIRECTIVE [facility] Encounter Notes: All associated encounter notes This section contains the clinical notes associated to the Encounter. Date/Time Encounter Note(s) Provider Source May 29, 2021 11:28 AM GERIATRIC MEDICINE REFERRAL NOTE: GRADY [facility] LOCATION: [facility] VISIT DATE: MAY 29, 2021@11:28 PALLAVI LOCAL TITLE: [facility] REFERRAL PHYSICIAN/LIP NOTE (C6 ) STANDARD TITLE: GERIATRIC MEDICINE REFERRAL NOTE DATE OF NOTE: MAY 29, 2021@11:28 ENTRY DATE: MAY 29, 2021@11:28:59 AUTHOR: GRADY WADE EXP COSIGNER: URGENCY: STATUS: COMPLETED GOALS OF CARE: long-term care (e.g., manage wounds, medi johnathon devices, [...] Tubing Saline Consult to Geriatrics/Extended Care ordered. /katey/ GRADY WADE M.D. SPLIT LEATHER MOSSER Signed: 05/29/2021 11:31 --- Interdisciplinary Note --- << Interdisciplinary Note >> LOCATION: [facility] CCT REFERRAL VISIT DATE: MAY 092020@13:58 LOCAL TITLE: [facility] PARENT EXTENDED CARE REFERRAL(P 6) STANDARD TITLE: [facility] NOTE DATE OF NOTE: MAY 29, 2021@14:01 ENTRY DATE: MAY 29, 2021@14:01:50 AUTHOR: CASANDRA LEWIS EXP COSIGNER: URGENCY: STATUS: COMPLETED [facility] PARENT EXTENDED CARE REFERRAL /es/ CASANDRA LEWIS RN, MSN Signed: 05/29/2021 14:02 << Interdisciplinary Note - Cont. >> LOCAL TITLE: [facility] REFERRAL PHYSICIAN/LIP NOTE (C6 ) STANDARD TITLE: GERIATRIC MEDICINE REFERRAL NOTE DATE OF NOTE: MAY 29, 2021@11:28 STATUS: COMPLET ED GOALS OF CARE: long-term care (e.g., manage wounds, medi johnathon devices, [...] Tubing Saline Consult to Geriatrics/Extended Care ordered. /katey/ GRADY WADE M.D. SPLIT LEATHER MOSSER Signed: 05/29/2021 11:31
--- OUTSIDE RECORDS SUMMARY | 2022-04-17 14:17 | XMS_ITS | Encounter Summary ---
:1940 Author Organization [facility] Address [address] [place] [address] Support Name Relationship Address Phone SUZANNE SERRANO Unavailable [address] [place] [phone] SUZANNE SERRANO Unavailable [address] [place] [phone] Insurance Providers: All historical and current Section [...] MEDICARE MEDICARE PART Feb 06, PART A [id number] 800 ALANNAHGonzalo GARCÍA (WNR) (M) A 2002 [id number] LEONARD MEDICARE MEDICARE PART Feb 06, PART B [id number] 800 ALANNAHGonzalo GARCÍA (WNR) (M) B 2002 [id number] LEONARD MEDICARE MEDICARE RR Feb 06, RR PART [id number] KAWILMER LIK, PATIENT (WNR) (M) PART 2002 A [id number] SHERYL A MEDICARE MEDICARE RR Feb 06, RR PART [id number] KAWILMER LIK, PATIENT (WNR) (M) PART 2002 B [id number] SHERYL B MEDICARE MEDICARE PART Jun 08, PART D [id number] LESLYE BAEZA, PATIENT PART D (M) D 2017 [id number] 5 SHERYL (WNR) UNION MEDICARE MEDIC Jun 08 [id number] [phone] DANIEL SERRANO [facility] 2011 [id number] SHERYL PACK KAREN SUPPL EMENT UNION MEDICARE UPREH Jun 08 [id number] DELORES SERRANO [facility]ERLENE [facility] S 2009 [id number] SHERYL PACK (NO B EXC) Selected Encounter This section includes the information on record at [place] for the Encounter. Date/Time Encounter Type Encounter Description Reason Provider Source Jul 16, 2021 03:19 Outpatient Encounter COMMUNITY CARE PM CONSULT IHE Encounter Template Text not used by [place] Plan of Treatment: Future Appointments (+ 6 months) and Future Tests (+/- 45 days) The Plan of Treatment section includes future care activities for the patient from all [place] treatmentfacilities. This section includes future appointments and future orders which are active, pending orscheduled.Future Appointments This section includes appointments that were scheduled to occur 6 months from the date of the Encounter, up to a maximum of 20 appointments. The data comes from all [place] treatment facilities. Appointment Date/Time Appointment Type Appointment Facili ty Name Aug 12, 2021 10:30 AM AMBULATORY - NONE [facility] November 05, 2021 10:00 AM AMBULATORY - MEDICINE [facility] Advance Directives: All historical and current Section Date Range: From patient's date of to the date document was created. This section includes ALL of a patient's completed or amended [place] Advance and Rescinded Directives. The entries below indicate that a directive exists for the patient, but an actual copy is not included with this document. The data comes from all [place] facilities. Date Advance Directives Provider Source May 23, 2003 ADVANCE DIRECTIVE [facility] Encounter Notes: All associated encounter notes This section contains the clinical notes associated to the Encounter. Date/Time Encounter Note(s) Provider Source Jul 16, 2021 03:19 PM NURSING E & M NOTE: EZ MAUNEL SYL [facility] LOCAL TITLE: NURSING HISTORICAL NOTE STANDARD TITLE: NURSING E & M NOTE DATE OF NOTE: JUL 16, 2021@15:19 ENTRY DATE: JUL 16, 2021@15:19:23 AUTHOR: EZ MANUEL EXP COSIGNER: URGENCY: STATUS: COMPLETED NURSING HISTORICAL NOTE Has ADDENDA SHERYL SERRANO, [phone] REASON for Historical Note: Received Message manger on Traveling [place]: Vannesa maldonado [address]. & Spouse called requesting a ca ll back to discuss another referral to a different urologist. Lisa ran seen per Community Urologist Dr. Trey Martins. Assessment: This author spoke to 's spouse who is re questing a new urologist/urology referral for second opinion. Kenyon's spouse was not satisfied with the services received from Dr. Stefany Martins. Kenyon has an indwelling becerril catheter that requires weekly bladder irrigation. The spouse states that Dr. Trey Martins's office did not follow the bladder irrigation process as per the instructions provided per [facility] urologist. As per veterans spouse, they no longer wish to see [facility] urologist. She also stated that [place] is now experiencing signs and symp toms of UTI such as irritability, and overall, not feeling well. Plan: Traveling Coordinators please submit a new [facility] urology consult if care is medically necessary for a second opinio n. If new consult is submitted, please make sure to document that co nsult is being submitted for second opinion and that case is medically neces rula. Reason for documentation: Telephone call to patient one or more times on Jul /daljit BENÍTEZ, RN Signed: 07/16/2021 15:21 Receipt Acknowledged By: 07/16/2021 15:24 /daljit SANCHEZ MSN,RN * AWAITING SIGNATURE * GRADY WADE [facility] 07/16/2021 ADDENDUM STATUS: COMPLETED 's PACT team has been alerted to 's request for a second opinion regarding urologist, and the need for another [facility] [place] consult to coordinate that request. /katey/ JIMMY LÓPEZ,RN Signed: 07/16/2021 15:27
--- OUTSIDE RECORDS SUMMARY | 2022-04-17 14:18 | XMS_ITS | Encounter Summary ---
:1940 Author Organization [facility] Address [address] [place] [address] Support Name Relationship Address Phone SUZANNE SERRANO Unavailable [address] [place] [phone] SUZANNE SERRANO Unavailable [address] [place] [phone] Insurance Providers: All historical and current Section [...] MEDICARE MEDICARE PART Feb 06, PART A [id number] 800 Gonzalo SERRANO (WNR) (M) A 2002 [id number] LEONARD MEDICARE MEDICARE PART Feb 06, PART B [id number] 800 Gonzalo SERRANO (WNR) (M) B 2002 [id number] LEONARD MEDICARE MEDICARE RR Feb 06, RR PART [id number] MIK CHAND, PATIENT (WNR) (M) PART 2002 A [id number] SHERYL A MEDICARE MEDICARE RR Feb 06, RR PART [id number] [id number] MIK CHAND, PATIENT (WNR) (M) PART 2002 B [id number] 2 SHERYL B MEDICARE MEDICARE PART Jun 08, PART D [id number] LESLYE BAEZA, PATIENT PART D (M) D 2017 [id number] 5 SHERYL (WNR) UNION MEDICARE MEDIC Jun 08 [id number] [phone] DANIEL SERRANO PACIFIC SUPPLEMEN ARE 2009 [id number] SHERYL PACK KAREN SUPPL EMENT UNION MEDICARE UPREH Jun 08 [id number] DELORES SERRANOMERLENE [place] [facility] S 2009 [id number] SHERYL PACK (NO B EXC) Selected Encounter This section includes the information on record at [place] for the Encounter. Date/Time Encounter Type Encounter Description Reason Provider Source Jul 17, 2021 02:16 Outpatient Encounter [facility] PM IHE Encounter Template Text not used by [place] Plan of Treatment: Future Appointments (+ 6 months) and Future Tests (+/- 45 days) The Plan of Treatment section includes future care activities for the patient from all [place] treatmentfacilities. This section includes future appointments and future orders which are active, pending orscheduled.Future Appointments This section includes appointments that were scheduled to occur 6 months from the date of the Encounter, up to a maximum of 20 appointments. The data comes from all [place] treatment facilities. Appointment Date/Time Appointment Type Appointment Facili ty Name Aug 12, 2021 10:30 AM AMBULATORY - NONE [facility] November 05, 2021 10:00 AM AMBULATORY - MEDICINE [facility] Advance Directives: All historical and current Section Date Range: From patient's date of to the date document was created. This section includes ALL of a patient's completed or amended [place] Advance and Rescinded Directives. The entries below indicate that a directive exists for the patient, but an actual copy is not included with this document. The data comes from all [place] facilities. Date Advance Directives Provider Source May 23, 2003 ADVANCE DIRECTIVE [facility] Encounter Notes: All associated encounter notes This section contains the clinical notes associated to the Encounter. Date/Time Encounter Note(s) Provider Source Jul 17, 2021 02:22 HOME HEALTH NOTE: CASANDRA LEWIS [facility] LOCAL TITLE: HOME HEALTH TELEPHONE NOTE STANDARD TITLE: HOME HEALTH NOTE DATE OF NOTE: JUL 17, 2021@14:22 ENTRY DATE: JUL 17, 2021@14:22:55 AUTHOR: CASANDRA LEWIS EXP COSIGNER: URGENCY: STATUS: COMPLETED HOME HEALTH TELEPHONE NOTE Has ADDENDA Date: JUL 17, 2021 SHERYL SERRANO, [phone] [X] Called by other: [facility] DEPT RECEIVED [facility] ORDERS FOLLOWS FOR HOME HEALTH: Gentamicin 80mg in 500mL of sterile saline Once weekly for 4 weeks Intervention: PER MULTIPLE HOME HEALTH AGENCIES INCLUD ING CURRENT HH AGENCY- [facility]. THE IRRIGATION OF BLADDER WITH AN ANTIBIOTIC REQUIRE S A SPECIAL CERTIFICATION AND MUST BE INCLUDED IN THE AGENCIES POLICIES AND VA OCEDURES. ALL AGENCIES CONTACTED DO NOT HAVE CERTIFICATION AND HAVE NEV ER DONE THE PROCEDURE. IT IS RECOMMENDED THAT RECEIVE THE ANTIBIOTIC IRRIGATION VIA UROLOGY CLINIC OR AN OUTPATIENT PROCEDURE. THIS COORDINATOR SPOKE TO MS. SERRANO TO INFORM HER OF ABOVE. SHE VOICED UNDERSTANDING. ALSO INFORMED HER THAT IF MR. BRIANNA MARSHALL IS NOT FEELING WELL TO TAKE TO CLOSEST ER DEPT TO RECEIVE CARE. MRS. ALANNAH GARCÍA VERBALIZED UNDERSTANDING. Evaluation: ALERT TEAM OF ABOVE. NO FURTHER ACTION FROM [facility] DEPT. /daljit LEWIS RN, MSN Signed: 07/17/2021 14:27 Receipt Acknowledged By: 07/17/2021 14:34 /katey/ JIMMY HERNANDEZ MSN,RN 07/17/2021 14:31 /katey/ GRADY WADE M.D . RADIO COMMUNICATION COORDINATOR 07/17/2021 ADDENDUM STATUS: COMPLETED Home [facility] was advised that a new traveling consult is needed due to [place] not wanting to continue seeing current [facility] urologist. Once [facility] consult has been receive d, referral will be sent to community care. Reached out to urology community car e nurse Ez Rodríguez RN to advise of home health agencies not being able to irrigate with antibio tic and that a urology clinic would need to perform this. Ez stated that he was going to make calls to see which urologist would be able to perform the beulah armstrong bladder irrigations with antibiotic. /daljit HERNANDEZ MSN,RN Signed: 07/17/2021 14:48 Receipt Acknowledged By: 07/17/2021 15:09 /daljit LEWIS RN, MSN 07/17/2021 17:51 /daljit RODRÍGUEZ BSN, RN 07/17/2021 15:07 /katey/ Missy CALVIN RADIO COMMUNICATION COORDINATOR 07/17/2021 ADDENDUM STATUS: COMPLETED CASE UPDATE Call made to the office of community Urologist Jared Mack @ [facility] to inquire if they would be abl e to accommodate/render urology services for Sheryl Serrano. requires weekly bladde r irrigation following a specific orders/plan of care form 's Azul reynolds urologist. Community Urologist Dr. Vick Mack is requesting that the [place] provide him with the specific bladder irrigation orders given per the [place] Urologist. Most importantly, he is requesting medical do cumentation with exact rationale as to why the [place] Urologist (Dr. Prater) is reques ting irrigation be done using Lidocaine and Gentamycin. Dr. Vick Mack ne eds to review all medical documentation/rationale and determine if orders provided for care being requested is deemed medicall y necessary. This information has been relayed to [place] Traveling Coordinator Jimmy Hernandez. /katey/ EZ BENÍTEZ, RN Signed: 07/17/2021 17:54 Receipt Acknowledged By: * AWAITING SIGNATURE * CASANDRA LEWIS * AWAITING SIGNATURE * JIMMY HERNANDEZ V * AWAITING SIGNATURE * GRADY WADE Jul 17, 2021 02:21 [facility] NOTE: CASANDRA LEWIS CLINIC PM << Interdisciplinary Note >> LOCATION: [facility] CCT REFERRAL VISIT DATE: Jul@14:16 LOCAL TITLE: [facility] PARENT EXTENDED CARE REFERRAL(P 6) STANDARD TITLE: [facility] NOTE DATE OF NOTE: JUL 17, 2021@14:21 ENTRY DATE: JUL 17, 2021@14:21:41 AUTHOR: CASANDRA LEWIS EXP COSIGNER: URGENCY: STATUS: COMPLETED [facility] PARENT EXTENDED CARE REFERRAL /es/ CASANDRA LEWIS RN, MSN Signed: 07/17/2021 14:22 << Interdisciplinary Note - Cont. >> LOCAL TITLE: [facility] REFERRAL PHYSICIAN/LIP NOTE (C6 ) STANDARD TITLE: GERIATRIC MEDICINE REFERRAL NOTE DATE OF NOTE: JUL 17, 2021@11:53 STATUS: COMPLET ED GOALS OF CARE: [facility] care (e.g., manage wounds, medi johnathon devices, [...] Saline Consult to Geriatrics/Extended Care ordered. /katey/ GARDY WADE M.D. RADIO COMMUNICATION COORDINATOR Signed: 07/17/2021 11:57
--- OUTSIDE RECORDS SUMMARY | 2022-04-17 14:21 | XMS_ITS | Encounter Summary ---
:1940 Author Organization [facility] Address [address] [place] [address] Support Name Relationship Address Phone SUZANNE SERRANO Unavailable [address] [place] [phone] SUZANNE SERRANO Unavailable [address] [place] [phone] Insurance Providers: All historical and current Section [...] MEDICARE MEDICARE PART Feb 06, PART A [id number] 800 Gonzalo SERRANO (WNR) (M) A 2002 [id number] LEONARD MEDICARE MEDICARE PART Feb 06, PART B [id number] 800 Gonzalo SERRANO (WNR) (M) B 2002 [id number] [phone] [place]ARD MEDICARE MEDICARE RR Feb 06, RR PART [id number] KAWILMER LIK, PATIENT (WNR) (M) PART 2002 A [id number] SHERYL A MEDICARE MEDICARE RR Feb 06, RR PART [id number] MIK LIK, PATIENT (WNR) (M) PART 2002 B [id number] SHERYL B MEDICARE MEDICARE PART Jun 08, PART D [id number] LESLYE BAEZA, PATIENT PART D (M) D 2017 [id number] SHERYL (WNR) UNION MEDICARE MEDIC Jun 08 [id number] [phone] DANIEL SERRANO PACIFIC SUPPLEMEN ARE 2009 [id number] SHERYL PACK KAREN SUPPL EMENT UNION MEDICARE UPREH Jun 08 [id number] DELORES SERRANO TIENT [place] [facility] S 2009 [id number] SHERYL PACK (NO B EXC) Selected Encounter This section includes the information on record at [place] for the Encounter. Date/Time Encounter Type Encounter Description Reason Provider Source Aug 15, 2021 12:00 Outpatient Encounter ADMIN PAT CÉSAR AM (MASNONCT) IHE Encounter Template Text not [...] Date/Time Appointment Type Appointment Facili ty Name November 05, 2021 10:00 AM AMBULATORY - MEDICINE [facility] CS Advance Directives: All historical and current [...] May 23, 2003 ADVANCE DIRECTIVE [facility] Encounter Notes: All associated encounter notes This section contains the clinical notes associated to the Encounter. Date/Time Encounter Note(s) Provider Source Aug 15, 2021 12:00 AM NONVA CONSULT: [facility] LOCAL TITLE: COMMUNITY CARE-CONSULT RESULT NOTE STANDARD TITLE: NONVA CONSULT DATE OF NOTE: AUG 15, 2021 ENTRY DATE: AUG 15 022@11:05:44 AUTHOR: Stefany STRATTON COSIGNER: URGENCY: STATUS: COMPLETED VistA Imaging - Scanned Document The following Non [place] Care consult has been compl eted. See scanned document for report. 08.12.21 PROGRESS NOTE: RENAISSANCE SURGERY MISSY Sánchez SCANNED DOCUMENT SIGNATURE NOT REQUIRED Electronically Filed: 08/15/2021 by: CORINNA STRATTON
--- OUTSIDE RECORDS SUMMARY | 2022-04-17 14:21 | XMS_ITS | Encounter Summary ---
:1940 Author Organization [facility] Address [address] [place] [address] Support Name Relationship Address Phone SUZANNE SERRANO Unavailable [address] [place] [phone] SUZANNE SERRANO Unavailable [address] [place] [phone] Insurance Providers: All historical and current Section [...] MEDICARE MEDICARE PART Feb 06, PART A [id number] 800 Gonzalo SERRANO (WNR) (M) A 2002 [id number] LEONARD MEDICARE MEDICARE PART Feb 06, PART B [id number] 800 Gonazlo SERRANO (WNR) (M) B 2002 [id number] [place]ARD MEDICARE MEDICARE RR Feb 06, RR PART [id number] KAWILMER LIK, PATIENT (WNR) (M) PART 2002 A [id number] SHERYL A MEDICARE MEDICARE RR Feb 06, RR PART [id number] MIK LIK, PATIENT (WNR) (M) PART 2002 B [id number] 2 SHERYL B MEDICARE MEDICARE PART Jun 08, PART D [id number] LESLYE BAEZA, PATIENT PART D (M) D 2017 [id number] 5 SHERYL (WNR) UNION MEDICARE MEDIC Jun 08 [id number] [phone] JANETTEDANIEL Granado PACIFIC SUPPLEMEN ARE [id number] SHERYL APCK KAREN SUPPL EMENT UNION MEDICARE UPREH Jun 08 [id number] DELORES SERRANO TIEMERLENE [place] [facility] S [id number] SHERYL PACK (NO B EXC) Selected Encounter This section includes the information on record at [place] for the Encounter. Date/Time Encounter Type Encounter Description Reason Provider Source Aug 06, 2021 04:11 Outpatient Encounter ADMIN PAT ACTIVTIES PM (MASNONCT) IHE Encounter Template Text not used by [place] Plan of Treatment: Future Appointments (+ 6 months) and Future Tests (+/- 45 days) The Plan of Treatment section includes future care activities for the patient from all [place] treatmentfacilities. This section includes future appointments and future orders which are active, pending orscheduled.Future Appointments This section includes appointments that were scheduled to occur 6 months from the date of the Encounter, up to a maximum of 20 appointments. The data comes from all [place] treatment facilities. Appointment Date/Time Appointment Type Appointment Facili ty Name Aug 12, 2021 10:30 AM AMBULATORY - NONE [facility] November 05, 2021 10:00 AM AMBULATORY - MEDICINE [facility] Advance Directives: All historical and current Section Date Range: From patient's date of to the date document was created. This section includes ALL of a patient's completed or amended [place] Advance and Rescinded Directives. The entries below indicate that a directive exists for the patient, but an actual copy is not included with this document. The data comes from all [place] facilities. Date Advance Directives Provider Source May 23, 2003 ADVANCE DIRECTIVE [facility] Encounter Notes: All associated encounter notes This section contains the clinical notes associated to the Encounter. Date/Time Encounter Note(s) Provider Source Aug 06, 2021 04:11 PM OUTPATIENT INTERDISCIPLINARY NOTE: [facility] LOCAL TITLE: CHART REVIEW NOTE STANDARD TITLE: OUTPATIENT INTERDISCIPLINARY NOT E DATE OF NOTE: AUG 06, 2021@16:11 ENTRY DATE: AUG 06, 2021@16:11:58 AUTHOR: GRADY BRENNAN EXP COSIGNER: URGENCY: STATUS: COMPLETED SHERYL SERRANO, [phone] [facility] requesting for consult at request of [facility] PCP for Urology. I have reviewed chart and signed off on consult. [facility] to provide application support consultant with any pertinent medications, labs, imaging. Please see remote data for any further information on this patient . /katey/ GRADY CLIFTON Signed: 08/06/2021 16:12
--- OUTSIDE RECORDS SUMMARY | 2022-04-17 14:21 | XMS_ITS ---
:1940 Author Organization [facility] Address [address] [place] [address] Support Name Relationship Address Phone SUZANNE SERRANO Unavailable [address] [place] [phone] SUZANNE SERRANO Unavailable [address] [place] [phone] Insurance Providers: All historical and current Section [...] MEDICARE MEDICARE PART Feb 06, PART A [id number] 800 Gonzalo SERRANO (WNR) (M) A 2002 [id number] LEONARD MEDICARE MEDICARE PART Feb 06, PART B [id number] 800 Gonzalo SERRANO (WNR) (M) B 2002 [id number] LEONARD MEDICARE MEDICARE RR Feb 06, RR PART [id number] KAWILMER LIK, PATIENT (WNR) (M) PART 2002 A [id number] 2 SHERYL A MEDICARE MEDICARE RR Feb 06, RR PART [id number] MIK LIK, PATIENT (WNR) (M) PART 2002 B [id number] 2 SHERYL B MEDICARE MEDICARE PART Jun 08, PART D [id number] LESLYE BAEZA, PATIENT PART D (M) D 2017 [id number] 5 SHERYL (WNR) UNION MEDICARE MEDIC Jun 08 [id number] [phone] DANIEL SERRANO PACIFIC SUPPLEMEN ARE 2009 [id number] SHERYL PACK KAREN SUPPL EMENT UNION MEDICARE UPREH Jun 08 [id number] DELORES SERRANO TIENT [place] [facility] S 2009 [id number] SHERYL PACK (NO B EXC) Selected Encounter This section includes the information on record at [place] for the Encounter. Date/Time Encounter Type Encounter Description Reason Provider Source Aug 12, 2021 12:00 Outpatient Encounter ADMIN PAT CÉSAR [...] 05, 2021 10:00 AM AMBULATORY - MEDICINE [facility] CS Advance Directives: All historical [...] Encounter. Date/Time Encounter Note(s) Provider Source Aug 12, 2021 12:00 AM NONVA CONSULT: [facility] LOCAL TITLE: COMMUNITY CARE-CONSULT RESULT NOTE STANDARD TITLE: NONVA CONSULT DATE OF NOTE: AUG 12, 2021 ENTRY DATE: AUG 15 022@11:10:16 AUTHOR: CONRAD MANUEL EXP COSIGNER: URGENCY: STATUS: COMPLETED VistA Imaging - Scanned Document The following Non [place] Care consult has been compl eted. See scanned document for report. Urology Inst @ [facility]; Acute Cystitis - 12/27-MD Davide SCANNED DOCUMENT SIGNATURE NOT REQUIRED Electronically Filed: 08/15/2021 by: CONRAD HONR
--- OUTSIDE RECORDS SUMMARY | 2022-04-17 14:21 | XMS_ITS | Encounter Summary ---
:1940 Author Organization [facility] Address [address] [place] [address] Support Name Relationship Address Phone SUZANNE SERRANO Unavailable [address] [place] [phone] SUZANNE SERRANO Unavailable [address] [place] [phone] Insurance Providers: All historical and current Section [...] MEDICARE MEDICARE PART Feb 06, PART A [id number] 800 Gonzalo SERRANO (WNR) (M) A 2002 [id number] LEONARD MEDICARE MEDICARE PART Feb 06, PART B [id number] 800 Gonzalo SERRANO (WNR) (M) B 2002 [id number] LEONARD MEDICARE MEDICARE RR Feb 06, RR PART [id number] KAWILMER LIK, PATIENT (WNR) (M) PART 2002 A [id number] 2 SHERYL A MEDICARE MEDICARE RR Feb 06, RR PART [id number] MIK LIK, PATIENT (WNR) (M) PART 2002 B [id number] 2 SHERYL B MEDICARE MEDICARE PART Jun 08, PART D [id number] LESLYE BAEZA, PATIENT PART D (M) D 2017 [id number] 5 SHERYL (WNR) UNION MEDICARE MEDIC Jun 08 [id number] [phone] DANIEL SERRANO PACIFIC SUPPLEMEN ARE [id number] SHERYL PACK KAREN SUPPL EMENT UNION MEDICARE UPREH Jun 08 [id number] DELORES SERRANO TIENT [place] SECOND[facility] S [id number] SHERYL PACK (NO B EXC) Selected Encounter This section includes the information on record at [place] for the Encounter. Date/Time Encounter Type Encounter Description Reason Provider Source Aug 21, 2021 11:24 Outpatient Encounter ADMIN PAT ACTIVIZZY AM (MASNONCT) IHE Encounter Template Text not used by [place] Plan of Treatment: Future Appointments (+ 6 months) and Future Tests (+/- 45 days) The Plan of Treatment section includes future care activities for the patient from all [place] treatmentfacilities. This section includes future appointments and future orders which are active, pending orscheduled.Future Appointments This section includes appointments that were scheduled to occur 6 months from the date of the Encounter, up to a maximum of 20 appointments. The data comes from all [place] treatment facilities. Appointment Date/Time Appointment Type Appointment Facili ty Name November 05, 2021 10:00 AM AMBULATORY - MEDICINE [facility] CS Advance Directives: All historical and current Section Date Range: From patient's date of to the date document was created. This section includes ALL of a patient's completed or amended [place] Advance and Rescinded Directives. The entries below indicate that a directive exists for the patient, but an actual copy is not included with this document. The data comes from all [place] facilities. Date Advance Directives Provider Source May 23, 2003 ADVANCE DIRECTIVE [facility] Encounter Notes: All associated encounter notes This section contains the clinical notes associated to the Encounter. Date/Time Encounter Note(s) Provider Source Aug 21, 2021 11:24 AM NONVA CONSULT: WOODY MARIEE [facility] LOCAL TITLE: COMMUNITY CARE-CONSULT RESULT NOTE STANDARD TITLE: NONVA CONSULT DATE OF NOTE: AUG 21, 2021@11:24 ENTRY DATE: AUG 26, 2021@11:25:09 AUTHOR: WOODY MARIEE EXP COSIGNER: URGENCY: STATUS: COMPLETED VistA Imaging - Scanned Document UROLOGY NOTE 08/21/21 DR ISRA RIVAS /katey/ WOODY E JAYLENE STEREOPTIC PROJECTION TOPOGRAPHER Signed: 08/26/2021 11:25
--- OUTSIDE RECORDS SUMMARY | 2022-04-17 14:22 | XMS_ITS ---
:1940 Author Organization [facility] Address [address] [place] [address] Support Name Relationship Address Phone SUZANNE SERRANO Unavailable [address] [place] [phone] Insurance Providers: All historical and current Section Date Range: From patient's date of to the date document was created.This section includes the names of all active insurance providers for the patient. Insurance Type of Plan Start of End of Group Member Insurance Policy P atient's Provider Coverage Name Policy Policy Number ID Provider's Blanchard's Relationship Coverage Coverage Telephone Name to Policy Number Blanchard MEDICARE MEDICARE PART Feb 06, PART A [id number] 800 Gonzalo SERRANO ATHEMANT (WNR) (M) A 2002 [phone] SHERYL MEDICARE MEDICARE PART Feb 06, PART B [id number] 800 Gonzalo SERRANO ATHEMANT (WNR) (M) B 2002 [id number] [phone] [place] MEDICARE MEDICARE RR Feb 06, RR PART [id number] MIK LIK, PATIENT (WNR) (M) PART 2002 A [id number] SHERYL A MEDICARE MEDICARE RR Feb 06, RR PART [id number] MIK LIK, PATIENT (WNR) (M) PART 2002 B [id number] 2 SHERYL B MEDICARE MEDICARE PART Jun 08, PART D [id number] LESLYE BAEZA, PATIENT PART D (M) D 2017 [id number] 5 SHERYL (WNR) UNION MEDICARE MEDIC Jun 08, 61 [id number] [phone] ZACH , PATIENT [facility] ARE 2009 [id number] SHERYL PINEDAJustFamily KAREN SUPPL [facility] MEDICARE [facility] Jun 08 [id number] DELORES SERRANO [facility] 2011 [id number] SHERYL PACK (NO B EXC) Selected Encounter This section includes the information on record at [place] for the Encounter. Date/Time Encounter Type Encounter Description Reason Provider Source Sep 06, 2021 12:03 Outpatient Encounter ADMIN PAT ACTIVTIES PM (MASNONCT) IHE Encounter Template Text not used by [place] Plan of Treatment: Future Appointments (+ 6 months) and Future Tests (+/- 45 days) The Plan of Treatment section includes future care activities for the patient from all [place] treatmentfacilities. This section includes future appointments and future orders which are active, pending orscheduled.Future Appointments This section includes appointments that were scheduled to occur 6 months from the date of the Encounter, up to a maximum of 20 appointments. The data comes from all [place] treatment facilities. Appointment Date/Time Appointment Type Appointment Facili ty Name November 05, 2021 10:00 AM AMBULATORY - MEDICINE [facility] Advance Directives: All historical and current Section Date Range: From patient's date of to the date document was created. This section includes ALL of a patient's completed or amended [place] Advance and Rescinded Directives. The entries below indicate that a directive exists for the patient, but an actual copy is not included with this document. The data comes from all [facility]. Date Advance Directives Provider Source May 23, 2003 ADVANCE DIRECTIVE [facility] Encounter Notes: All associated encounter notes This section contains the clinical notes associated to the Encounter. Date/Time Encounter Note(s) Provider Source Sep 06, 2021 12:03 PM NONVA CONSULT: JOHANA MOHR [facility] LOCAL TITLE: COMMUNITY CARE-CONSULT RESULT NOTE STANDARD TITLE: NONVA CONSULT DATE OF NOTE: SEP 06, 2021@12:03 ENTRY DATE: SEP 10, 2021@12:03:37 AUTHOR: JOHANA MOHR EXP COSIGNER: URGENCY: STATUS: COMPLETED VistA Imaging - Scanned Document UROLOGY NOTES 09/06/21 ISRA RIVAS MD /katey/ JOHANA MOHR Signed: 09/10/2021 12:03
--- OUTSIDE RECORDS SUMMARY | 2022-04-17 14:23 | XMS_ITS | Encounter Summary ---
:1940 Author Organization [facility] Address [address] [place] [address] Support Name Relationship Address Phone SUZANNE SERRANO Unavailable [address] [place] [phone] SUZANNE SERRANO Unavailable [address] [place] [phone] Insurance Providers: All historical and current Section [...] MEDICARE MEDICARE PART Feb 06, PART B [id number] 800 Gonzalo SERRANO (WNR) (M) B 2002 [id number] LEONARD MEDICARE MEDICARE PART Feb 06, PART A [id number] 800 Gonzalo SERRANO (WNR) (M) A 2002 [id number] [place]ONARD MEDICARE MEDICARE RR Feb 06, RR PART [id number] MIK CHAND, PATIENT (WNR) (M) PART 2002 A [id number] SHERYL A MEDICARE MEDICARE RR Feb 06, RR PART [id number] MIK CHAND, PATIENT (WNR) (M) PART 2002 B [id number] 2 SHERYL B MEDICARE MEDICARE PART Jun 08, PART D [id number] LESLYE BAEZA, PATIENT PART D (M) D 2017 [id number] 5 SHERYL (WNR) UNION MEDICARE MEDIC Jun 08 [id number] [phone] DANIEL SERRANO PACIFIC SUPPLEMEN ARE 2009 [id number] SHERYL PACK KAREN SUPPL EMENT UNION MEDICARE UPREH Jun 08 [id number] DELORES SERRANO TIENT [place] SECONDARY S 2009 [id number] [id number] SHERYL PACK (NO B EXC) Selected Encounter This section includes the information on record at [place] for the Encounter. Date/Time Encounter Type Encounter Description Reason Provider Source Jul 25, 2021 08:21 Outpatient Encounter ADMIN PATTIE LINDSEY AM (MASNONCT) IHE Encounter Template Text not used by [place] Plan of Treatment: Future Appointments (+ 6 months) and Future Tests (+/- 45 days) The Plan of Treatment section includes future care activities for the patient from all [place] treatmentfacilities. This section includes future appointments and future orders which are active, pending orscheduled.Future Appointments This section includes appointments that were scheduled to occur 6 months from the date of the Encounter, up to a maximum of 20 appointments. The data comes from all [place] treatment facilities. Appointment Date/Time Appointment Type Appointment Facili ty Name Aug 12, 2021 10:30 AM AMBULATORY - NONE [facility] November 05, 2021 10:00 AM AMBULATORY - MEDICINE [facility] Social History: Smoking Status (Most current) and Tobacco Use (All prior to encounter date) This section includes the most current, and the historical, smoking and tobacco-related health factors from the [place] facility where the Encounter took place.Current Smoking Status This section includes the most current smoking, or tobacco-related health factor, from the [place] facility where the Encounter took place. Date/Time Current Smoking Status Comment Facility Dec 10, 2018 12:57 PM VA-TOBACCO QUIT 15 YRS OR MORE [facility] Tobacco Use History This section includes a history of the smoking, or tobacco- related health factors, that were collected on or before the date of the Encounter. The data comes from the [place] facility where the Encounter took place. Date/Time Smoking Status/Tobacco Use Comment [facility] Dec 10, 2018 12:57 PM VA-TOBACCO QUIT 15 YRS OR MORE [facility] Feb 25, 2018 12:23 PM VA-TOBACCO FORMER USER [facility] Feb 25, 2018 12:23 PM VA-TOBACCO QUIT 15 YRS OR MORE [facility] Apr 10, 2015 02:55 PM FORMER TOBACCO USER 7Y OR GREATER [facility] Apr 27, 2014 10:17 AM FORMER TOBACCO USER 7Y OR GREATER [facility] Jun 18, 2006 07:23 AM FORMER TOBACCO USER 7Y OR GREATER [facility] Advance Directives: All historical and current Section Date Range: From patient's date of to the date document was created. This section includes ALL of a patient's completed or amended [place] Advance and Rescinded Directives. The entries below indicate that a directive exists for the patient, but an actual copy is not included with this document. The data comes from all [place] facilities. Date Advance Directives Provider Source May 23, 2003 ADVANCE DIRECTIVE [facility] ANDREW [facility] Encounter Notes: All associated encounter notes This section contains the clinical notes associated to the Encounter. Date/Time Encounter Note(s) Provider Source Jul 25, 2021 08:21 AM RIGGING UP WORKER REFERRAL NOTE: JULIANE CHAUHAN [facility] LOCAL TITLE: TRAVELING PROGRESS NOTE STANDARD TITLE: RIGGING UP WORKER REFERRAL NOTE DATE OF NOTE: JUL 25, 2021@08:21 ENTRY DATE: JUL 25, 2021@08:21:58 AUTHOR: JULIANE CHAUHAN EXP COSIGNER: URGENCY: STATUS: COMPLETED TRAVELING PROGRESS NOTE Has ADDENDA Per the [place] Traveling Coordinator: [facility] is requesting assistance from [facility] to obtain the specif ic bladder irrigation orders given per the [place] [facility]. Most importantly, urolo gist at [facility], is requesting medical documentation with exact rationale as to why the [place] [facility]ist (Dr. Prater) is requesting irrigation be d one using Lidocaine and Gentamycin. It appears none of the home health agencies are able to provide the irrigation w/ ABX, so this will need to be done w/ OP urology services and the was not happy w/ the previous urology provider. Please place note on the current Traveling Veter an Consult w/ information regarding when the records responding to the above questions are put into [facility]. Thank you /katey/ JULIANE CHAUHAN REGISTERED NURSE Signed: 07/25/2021 08:32 Receipt Acknowledged By: 07/25/2021 21:52 /katey/ STEVE ESTRELLA PHYSICIAN IMMUNOLOGY TEACHER for CASANDRA DALTON 07/25/2021 ADDENDUM STATUS: COMPLETED Unable to sign note and issue needs to be addres sed with PACT and patient. Unsure if he wants a seconad Urology opinion. /katey/ KIANNA HERNANDEZ MD GEODESIST, [facility] Signed: 07/25/2021 11:10 Receipt Acknowledged By: 07/25/2021 21:52 /katey/ STEVE ESTRELLA PHYSICIAN IMMUNOLOGY TEACHER 07/25/2021 ADDENDUM STATUS: COMPLETED FYI, to PACT. /katey/ KIANNA HERNANDEZ MD GEODESIST, [facility] Signed: 07/25/2021 16:29 Receipt Acknowledged By: 07/26/2021 07:45 /katey/ AUGUSTO TOVAR RN [place] ATTENDANT for TIFFANI DURHAM 08/01/2021 ADDENDUM STATUS: COMPLETED [facility] requesting the above docum entation. They are unable to proceed until received (see Traveling [place] co nsult). /katey/ JULIANE CHAUHAN REGISTERED NURSE Signed: 08/01/2021 10:25 Receipt Acknowledged By: * AWAITING SIGNATURE * TIFFANI DURHAM 08/01/2021 20:21 /katey/ CASANDRA DALTON MD Staff Physician 08/01/2021 ADDENDUM STATUS: COMPLETED per report of patient and hi s , Dr Prater of [facility], not associated with [place], recommends straight-catheterization wit h lidocaine and gentamycin because of frequent UTI's. [facility] queried, but no f urther documentation is available at this time. /katey/ CASANDRA DALTON MD Staff Physician Signed: 08/01/2021 20:23 Receipt Acknowledged By: 08/02/2021 07:39 /katey/ JULIANE CHAUHAN REGISTERED NURSE 08/02/2021 ADDENDUM STATUS: COMPLETED per [facility]: Community note datged 05/22: Becerril catheter / Bladder irrigation (05/22/2021 ) - patient was placed in a supine position. The penis was prepped in usual sterile fashion. 2% viscous lidocaine was used for local anesthesia. A new 16 FR coude catheter was inserted into the bladder without dif ficulty. The balloon was inflated with 10 mL normal saline. Approx 100 mL of yellow urine drained fr om bladder. The bladder was irrigated with 80 mg of Gentamicin in 500 mL of sterile saline. The becerril was removed. Patient tolerated procedure well. ICD code needed for frequent UTI's also in th e addendem to the consult. Forwarding to PCP to place order in [facility] consult addendum. /es/ TIFFANI DURHAMRN RN PACT Cardiothoracic Surgeon Signed: 08/02/2021 08:36 Receipt Acknowledged By: * AWAITING SIGNATURE * CASANDRA DALTON 08/02/2021 ADDENDUM STATUS: COMPLETED Note... place comment in most recent TV[facility], Aisha gentile NOT [facility] consult /es/ TIFFANI DURHAM RN RN PACT Cardiothoracic Surgeon Signed: 08/02/2021 08:48 Receipt Acknowledged By: * AWAITING SIGNATURE * CASANDRA DALTON
--- OUTSIDE RECORDS SUMMARY | 2022-04-17 14:23 | XMS_ITS | Encounter Summary ---
:1940 Author Organization [facility] Address [address] [place] [address] Support Name Relationship Address Phone SUZANNE SERRANO Unavailable [address] [place] [phone] SUZANNE SERRANO Unavailable [address] [place] [phone] Insurance Providers: All historical and current Section [...] MEDICARE MEDICARE PART Feb 06, PART A [id number] 800 Gonzalo SERRANO (WNR) (M) A 2002 [id number] LEONARD MEDICARE MEDICARE PART Feb 06, PART B [id number] 800 Gonzalo SERRANO (WNR) (M) B 2002 [id number] [phone] LEONARD MEDICARE MEDICARE RR Feb 06, RR PART [id number] MIK CHAND, PATIENT (WNR) (M) PART 2002 A [id number] SHERYL A MEDICARE MEDICARE RR Feb 06, RR PART [id number] MIK CHAND, PATIENT (WNR) (M) PART 2002 B [id number] SHERYL B MEDICARE MEDICARE PART Jun 08, PART D [id number] LESLYE BAEZA, PATIENT PART D (M) D 2017 [id number] SHERYL (WNR) UNION MEDICARE MEDIC Jun 08 [id number] [phone] DANIEL SERRANO PACIFIC SUPPLEMEN ARE 2009 [id number] SHERYL PACK KAREN SUPPL EMENT UNION MEDICARE UPREH Jun 08 [id number] DELORES SERRANO TIENT SHILOH SECONDARY S 2009 [id number] SHERYL PACK (NO B EXC) Selected Encounter This section includes the information on record at [place] for the Encounter. Date/Time Encounter Type Encounter Description Reason Provider Source Jun 03, 2021 09:27 CASE MANAGEMENT ADMIN PAT ACTIVTIES JULIANE PONCE AM (MASNONCT) E Encounter Template Text not used by [place] Plan of Treatment: Future Appointments (+ 6 months) and Future Tests (+/- 45 days) The Plan of Treatment section includes future care activities for the patient from all [place] [facility]. This section includes future appointments and future orders which are active, pending orscheduled.Future Appointments This section includes appointments that were scheduled to occur 6 months from the date of the Encounter, up to a maximum of 20 appointments. The data comes from all [place] treatment facilities. Appointment Date/Time Appointment Type Appointment Facili ty Name Aug 12, 2021 10:30 AM AMBULATORY - NONE [facility] November 05, 2021 10:00 AM AMBULATORY - MEDICINE [facility] Social History: Smoking Status (Most current) and Tobacco Use (All prior to encounter date) This section includes the most current, and the historical, smoking and tobacco-related health factors from the [place] facility where the Encounter took place.Current Smoking Status This section includes the most current smoking, or tobacco-related health factor, from the [place] facility where the Encounter took place. Date/Time Current Smoking Status Comment Facility Dec 10, 2018 12:57 PM VA-TOBACCO QUIT 15 YRS OR MORE [facility] Tobacco Use History This section includes a history of the smoking, or tobacco- related health factors, that were collected on or before the date of the Encounter. The data comes from the [place] facility where the Encounter took place. Date/Time Smoking Status/Tobacco Use Comment [facility] Dec 10, 2018 12:57 PM VA-TOBACCO QUIT 15 YRS OR MORE [facility] Feb 25, 2018 12:23 PM VA-TOBACCO FORMER USER MIN [facility] Feb 25, 2018 12:23 PM VA-TOBACCO QUIT 15 YRS OR MORE [facility] Apr 10, 2015 02:55 PM FORMER TOBACCO USER 7Y OR GREATER [facility] Apr 27, 2014 10:17 AM FORMER TOBACCO USER 7Y OR GREATER [facility] Jun 18, 2006 07:23 AM FORMER TOBACCO USER 7Y OR GREATER [facility] Advance Directives: All historical and current Section Date Range: From patient's date of to the date document was created. This section includes ALL of a patient's completed or amended [place] Advance and Rescinded Directives. The entries below indicate that a directive exists for the patient, but an actual copy is not included with this document. The data comes from all [place] facilities. Date Advance Directives Provider Source May 23, 2003 ADVANCE DIRECTIVE KINGS ANDREW [facility] Encounter Notes: All associated encounter notes This section contains the clinical notes associated to the Encounter. Date/Time Encounter Note(s) Provider Source Jun 03, 2021 09:27 AM ASSET CARD CLERK REFERRAL NOTE: JULIANE CHAUHAN [facility] LOCAL TITLE: TRAVELING PROGRESS NOTE STANDARD TITLE: ASSET CARD CLERK REFERRAL NOTE DATE OF NOTE: JUN 03, 2021@09:27 ENTRY DATE: JUN 03, 2021@09:27:33 AUTHOR: JULIANE CHAUHAN EXP COSIGNER: URGENCY: STATUS: COMPLETED Please note, [place] ([facility] scheduled bl adder irrigation services SCHEDULED 05/30/21 15:17 MAGDALENE WADE [facility]-OTHER Consult Appt. on 05/30/21 @ 08:00 HSRM, PID=MAY 29, 2021 PER CONSULT, PROVIDER [facility] [employer] [facility] PROVIDER: Provider: [facility] Address: [address] [place] [address] City: [place] State: [place] Zip: [id number] EMAIL: NPI : [id number] Please monitor [facility] for scanned notes or ob tain records for review. Thanks, /katey/ JULIANE CHAUHAN REGISTERED NURSE Signed: 06/03/2021 09:32 Receipt Acknowledged By: * AWAITING SIGNATURE * TIFFANI DURHAM * AWAITING SIGNATURE * CASANDRA DALTON
--- OUTSIDE RECORDS SUMMARY | 2022-04-17 14:23 | XMS_ITS | Encounter Summary ---
:1940 Author Organization [facility] Address [address] [place] [address] Support Name Relationship Address Phone SUZANNE SERRANO Unavailable [address] [place] [phone] SUZANNE SERRANO Unavailable [address] [place] [phone] Insurance Providers: All historical and current Section [...] MEDICARE MEDICARE PART Feb 06, PART A [id number] 800 Gonzalo SERRANO (WNR) (M) A 2002 [id number] LEONARD MEDICARE MEDICARE PART Feb 06, PART B [id number] 800 Gonzalo SERRANO (WNR) (M) B 2002 [id number] LEONARD MEDICARE MEDICARE RR Feb 06, RR PART [id number] MIK CHAND, PATIENT (WNR) (M) PART 2002 A [id number] SHERYL A MEDICARE MEDICARE RR Feb 06, RR PART [id number] MIK CHAND, PATIENT (WNR) (M) PART 2002 B [id number] 2 SHERYL B MEDICARE MEDICARE PART Jun 08, PART D [id number] LESLYE BAEZA, PATIENT PART D (M) D 2017 [id number] 5 SHERYL (WNR) UNION MEDICARE MEDIC Jun 08 [id number] [phone] DANIEL SERRANO PACIFIC SUPPLEMEN ARE 2009 [id number] SHERYL PACK KAREN SUPPL EMENT UNION MEDICARE UPREH Jun 08 [id number] DELORES SERARNO TIEMERLENE ACOSTA SECONDARY S 2009 [id number] SHERYL PACK (NO B EXC) Selected Encounter This section includes the information on record at [place] for the Encounter. Date/Time Encounter Type Encounter Description Reason Provider Source Aug 06, 2021 08:22 Outpatient Encounter ADMIN PATTIE LINDSEY AM (MASNONCT) IHE Encounter Template Text not used by [place] [...] 2021 10:30 AM AMBULATORY - NONE [facility] November 05, 2021 10:00 AM AMBULATORY - MEDICINE [facility] Social History: Smoking Status (Most current) and Tobacco Use (All prior to encounter date) This section includes the most current, and the historical, smoking and tobacco-related health factors from the [place] facility where the Encounter took place.Current Smoking Status This section includes the most current smoking, or tobacco-related health factor, from the [place] facility where the Encounter took place. Date/Time Current Smoking Status Comment Facility Dec 10, 2018 12:57 PM VA-TOBACCO QUIT 15 YRS OR MORE [facility] Tobacco Use History This section includes a history of the smoking, or tobacco- related health factors, that were collected on or before the date of the Encounter. The data comes from the [place] facility where the Encounter took place. Date/Time Smoking Status/Tobacco Use Comment [facility] Dec 10, 2018 12:57 PM VA-TOBACCO QUIT 15 YRS OR MORE [facility] Feb 25, 2018 12:23 PM VA-TOBACCO FORMER USER MIN [facility] Feb 25, 2018 12:23 PM VA-TOBACCO QUIT 15 YRS OR MORE [facility] Apr 10, 2015 02:55 PM FORMER TOBACCO USER 7Y OR GREATER [facility] Apr 27, 2014 10:17 AM FORMER TOBACCO USER 7Y OR GREATER [facility] Jun 18, 2006 07:23 AM FORMER TOBACCO USER 7Y OR GREATER [facility] Advance Directives: All historical and [...] Provider Source May 23, 2003 ADVANCE DIRECTIVE LORRIEKINGS BELTRAN [facility] Encounter Notes: All associated encounter notes This section contains the clinical notes associated to the Encounter. Date/Time Encounter Note(s) Provider Source Aug 06, 2021 08:22 AM FAST BRIM POUNCER REFERRAL NOTE: JULIANE CHAUHAN [facility] LOCAL TITLE: TRAVELING PROGRESS NOTE STANDARD TITLE: FAST BRIM POUNCER REFERRAL NOTE DATE OF NOTE: AUG 06, 2021@08:22 ENTRY DATE: AUG 06, 2021@08:22:38 AUTHOR: JULIANE CHAUHAN EXP COSIGNER: URGENCY: STATUS: COMPLETED TRAVELING PROGRESS NOTE Has ADDENDA Taken from the Traveling [place] Consult request for urology and bladder irrgation. They need more information, as noted below, from the [place] community urologist: [facility] ADDED COMMENT 08/05/21 16:28 TUFTER OPERATOR JIMMY SANCHEZ LAURA V [facility] once again reached out to [facility] wilbert borrego [facility] and left message for clinical associate for Dr. Lester (Maday) and also left message for triage nurse for wilbert dale and to assist in sending: specific bladder irrigation orders given per the [place] [facility]. Most importantly, urologist at [facility], is requesting [facility] documentation with exact rationale as to why the [facility] (Dr. Lester) is requesting irrigation be done using Lidocaine and Gentamyci n. [facility] already has progress notes as listed in abov e comment. Community care urologist is asking for orders for bladder irrig ation with Gentamycin and lidocaine and rationale for this. /katey/ JULIANE CHAUHAN REGISTERED NURSE Signed: 08/06/2021 08:24 Receipt Acknowledged By: 08/06/2021 09:53 /es/ TIFFANI DURHAMRN RN PACT Automobile Body Customizer * AWAITING SIGNATURE * CASANDRA DALTON 08/06/2021 ADDENDUM STATUS: COMPLETED Multiple attempts to reach Maday, Clinical Ass istant for Dr. Lester at [place] [facility]. Finally able to reach Maday to [facility] the situation with [facility]. She states she has been trying to get a hold of [facility] Jimmy without success. Able to get Jimmy's direct number for Maday so they can communicate re: [facility] urolog needs. Maday, Clinical Critical Care Nurse Practitioner for Dr. Lester Jimmy, C at [place] [phone] /katey/ TIFFANI DURHAMRN RN PACT Automobile Body Customizer Signed: 08/06/2021 09:52
--- OUTSIDE RECORDS SUMMARY | 2022-04-17 14:23 | XMS_ITS | Encounter Summary ---
:1940 Author Organization [facility] Address [address] [place] [address] Support Name Relationship Address Phone SUZANNE SERRANO Unavailable [address] [place] [phone] SUZANNE SERRANO Unavailable [address] [place] [phone] Insurance Providers: All historical and current Section [...] MEDICARE MEDICARE PART Feb 06, PART A [id number] 800 ALANNAHGonzalo GARCÍA (WNR) (M) A 2002 [id number] LEONARD MEDICARE MEDICARE PART Feb 06, PART B [id number] 800 Gonzalo SERRANO (WNR) (M) B 2002 [phone] LEONARD MEDICARE MEDICARE RR Feb 06, RR PART [id number] [id number] KADER LIK, PATIENT (WNR) (M) PART 2002 A [id number] SHERYL A MEDICARE MEDICARE RR Feb 06, RR PART [id number] KADER LIK, PATIENT (WNR) (M) PART 2002 B [id number] SHERYL B MEDICARE MEDICARE PART Jun 08, PART D [id number] LESLYE BAEZA, PATIENT PART D (M) D 2017 [id number] 5 SHERYL (WNR) UNION MEDICARE MEDIC Jun 08 [id number] [phone] DANIEL SERRANO [facility] 2009 [id number] SHERYL [id number] KAREN SUPPL EMENT UNION MEDICARE UPREH Jun 08 [id number] DELORES SERRANO IMANI [place] SECONDARY S 2009 [id number] SHERYL PACK (NO B EXC) Selected Encounter This section includes the information on record at [place] for the Encounter. Date/Time Encounter Type Encounter Description Reason Provider Source May 28, 2021 11:19 Outpatient Encounter TELEPHONE TRIAGE AM IHE Encounter Template Text not used by [place] Plan of Treatment: Future Appointments (+ 6 months) and Future Tests (+/- 45 days) The Plan of Treatment section includes future care activities for the patient from all [place] [facility]. This section includes future appointments [...] 30, 2021 08:00 AM AMBULATORY - NONE [facility] Aug 12, 2021 10:30 AM AMBULATORY - NONE [facility] November 05, 2021 10:00 AM AMBULATORY - MEDICINE [facility] Social History: Smoking Status (Most current) and Tobacco Use (All prior to encounter date) This section includes the most current, and the historical, smoking and tobacco-related health factors from the [place] facility where the Encounter took place.Current Smoking Status This section includes the most current smoking, or tobacco-related health factor, from the [place] facility where the Encounter took place. Date/Time Current Smoking Status Comment Facility Dec 10, 2018 12:57 PM VA-TOBACCO QUIT [address] [facility] Tobacco Use History This section includes a history of the smoking, or tobacco- related health factors, that were collected on or before the date of the Encounter. The data comes from the [place] facility where the Encounter took place. Date/Time Smoking Status/Tobacco Use Comment [facility] Dec 10, 2018 12:57 PM VA-TOBACCO QUIT [address] [facility] Feb 25, 2018 12:23 PM VA-TOBACCO FORMER USER MIN [facility] Feb 25, 2018 12:23 PM VA-TOBACCO QUIT [address] [facility] Apr 10, 2015 02:55 PM FORMER TOBACCO USER 7Y OR GREATER [facility] Apr 27, 2014 10:17 AM FORMER TOBACCO USER 7Y OR GRE[address] [facility] Jun 18, 2006 07:23 AM FORMER TOBACCO USER 7Y OR [address] [facility] Advance Directives: All historical and current [...] 23, [address] [facility] Encounter Notes: All associated encounter notes This section contains the clinical notes associated to the Encounter. Date/Time Encounter Note(s) Provider Source May 28, 2021 11:19 AM REPORT OF CONTACT: ARYAN KELLEY [facility] LOCAL TITLE: PATIENT CONTACT NOTE STANDARD TITLE: REPORT OF CONTACT DATE OF NOTE: MAY 28, 2021@11:19 ENTRY DATE: MAY 28, 2021@11:19:37 AUTHOR: ARYAN KELLEY EXP COSIGNER: URGENCY: STATUS: COMPLETED PATIENT CONTACT NOTE Has ADDENDA Primary Care Call Center Phone number verified as correct.[phone] ex [phone] Mili from [facility] in [facility] called said they received an order from [facility]. But they need an authoriza tion # for patient to get intermediate visits for b ladder irrigation. she said they just need it okayed for a few visits. she would like a call back at # above. /katey/ ARYAN KELLEY visn [address] [facility] [place] Signed: 05/28/2021 11:27 Receipt Acknowledged By: 05/28/2021 12:38 /es/ CASANDRA DALTON MD Staff Physician * AWAITING SIGNATURE * TIFFANI DURHAM 05/28/2021 ADDENDUM STATUS: COMPLETED service is ok'ed; please return call /katey/ CASANDRA DALTON MD Staff Physician Signed: 05/28/2021 12:38 Receipt Acknowledged By: 05/28/2021 12:44 /es/ CAYDEN COPELAND RN RN [employer] Pathology Teacher for TIFFANI DURHAM
--- OUTSIDE RECORDS SUMMARY | 2022-04-17 14:23 | XMS_ITS | Encounter Summary ---
:1940 Author Organization [facility] Address [address] [place] [address] Support Name Relationship Address Phone SUZANNE SERRANO Unavailable [address] [place] [phone] SUZANNE SERRANO Unavailable [address] [place] [phone] Insurance Providers: All historical and current Section [...] MEDICARE MEDICARE PART Feb 06, PART A [id number] 800 Gonzalo SERRANO (WNR) (M) A 2002 [id number] LEONARD MEDICARE MEDICARE PART Feb 06, PART B [id number] 800 Gonzalo SERRANO (WNR) (M) B 2002 [id number] LEONARD MEDICARE MEDICARE RR Feb 06, RR PART [id number] [id number] MIK CHAND, PATIENT (WNR) (M) PART 2002 A [id number] SHERYL A MEDICARE MEDICARE RR Feb 06, RR PART [id number] MIK CHAND, PATIENT (WNR) (M) PART 2002 B [id number] 2 SHERYL B MEDICARE MEDICARE PART Jun 08, PART D [id number] LESLYE BAEZA, PATIENT PART D (M) D 2017 [id number] 5 SHERYL (WNR) UNION MEDICARE MEDIC Jun 08 [id number] [phone] DANIEL SERRANO PACIFIC SUPPLEMEN ARE 2009 [id number] SHERYL PACK KAREN SUPPL EMENT UNION MEDICARE UPREH Jun 08 [id number] DELORES SERRANO TIENT HERNANDEZ SECONDARY S 2009 [id number] SHERYL PACK (NO B EXC) Selected Encounter This section includes the information on record at [place] for the Encounter. Date/Time Encounter Type Encounter Description Reason Provider Source Aug 19, 2021 09:21 Outpatient Encounter ADMIN PATTIE LINDSEY AM (MASNONCT) IHE Encounter Template Text not used by [place] Plan of Treatment: Future Appointments (+ 6 months) and Future Tests (+/- 45 days) The Plan of Treatment section includes future care activities for the patient from all [place] treatmentfacilities. This section includes future appointments and future orders which are active, pending orscheduled.Future Appointments This section includes appointments that were scheduled to occur 6 months from the date of the Encounter, up to a maximum of 20 appointments. The data comes from all [place] treatment facilities. Appointment Date/Time Appointment Type Appointment Facili ty Name November 05, 2021 10:00 AM AMBULATORY - MEDICINE [facility] Social History: Smoking Status (Most current) and Tobacco Use (All prior to encounter date) This section includes the most current, and the historical, smoking and tobacco-related health factors from the [place] facility where the Encounter took place.Current Smoking Status This section includes the most current smoking, or tobacco-related health factor, from the [place] facility where the Encounter took place. Date/Time Current Smoking Status Comment Facility Dec 10, 2018 12:57 PM VA-TOBACCO QUIT [address] [facility] Tobacco Use History This section includes a history of the smoking, or tobacco- related health factors, that were collected on or before the date of the Encounter. The data comes from the [place] facility where the Encounter took place. Date/Time Smoking Status/Tobacco Use Comment Facil it Dec 10, 2018 12:57 PM VA-TOBACCO QUIT [address] [facility] Feb 25, 2018 12:23 PM VA-TOBACCO FORMER USER MIN [facility] Feb 25, 2018 12:23 PM VA-TOBACCO QUIT [address] [facility] Apr 10, 2015 02:55 PM FORMER TOBACCO USER 7Y OR GREATER [facility] Apr 27, 2014 10:17 AM FORMER TOBACCO USER 7Y OR GRE[address] [facility] Jun 18, 2006 07:23 AM FORMER TOBACCO USER 7Y OR [address] [facility] Advance Directives: All historical and current Section Date Range: From patient's date of to the date document was created. This section includes ALL of a patient's completed or amended [place] Advance and Rescinded Directives. The entries below indicate that a directive exists for the patient, but an actual copy is not included with this document. The data comes from all [place] facilities. Date Advance Directives Provider Source May 23, [address] [facility] Encounter Notes: All associated encounter notes This section contains the clinical notes associated to the Encounter. Date/Time Encounter Note(s) Provider Source Aug 19, 2021 09:21 AM FUSE ASSEMBLER REFERRAL NOTE: JULIANE CHAUHAN [facility] LOCAL TITLE: TRAVELING PROGRESS NOTE STANDARD TITLE: FUSE ASSEMBLER REFERRAL NOTE DATE OF NOTE: AUG 19, 2021@09:21 ENTRY DATE: AUG 19, 2021@09:21:17 AUTHOR: JULIANE CHAUHAN EXP COSIGNER: URGENCY: STATUS: COMPLETED Traveling Consult request for Ur ology Services was completed 08/12/21 by CC in [facility] and the note is available in [facility]. [facility] ADDED COMMENT 08/07/21 12:30 TRACE EVIDENCE TECHNICIAN JIMMY SANCHEZ LAURA V [facility] User Role: RN COM-Additional Comments: APPOINTED 08/12/2021 @ [address] Stephania Mack. and have been informed via phone ca ll, they agreed to appointment date and time. DR. ISRA MACK [facility] [address] [place], [place] [address] P: [phone] F: [phone] NPI#: [id number] /es/ JULIANE CHAUHAN REGISTERED NURSE Signed: 08/19/2021 09:22 Receipt Acknowledged By: * AWAITING SIGNATURE * CASANDRA DALTON
--- OUTSIDE RECORDS SUMMARY | 2022-04-17 14:24 | XMS_ITS | Encounter Summary ---
:1940 Author Organization [facility] Address [address] [place] [id number] Support Name Relationship Address Phone SUZANNE SERRANO Unavailable [address] [place] [phone] SUZANNE SERRANO Unavailable [address] [place] [phone] Insurance Providers: All historical and current Section [...] MEDICARE MEDICARE PART Feb 06, PART A [id number] Gonzalo SERRANO (WNR) (M) A 2002 [id number] [phone] LEONARD MEDICARE MEDICARE PART Feb 06, PART B [id number] Gonzalo SERRANO (WNR) (M) B 2002 [id number] [phone] [place]ARD MEDICARE MEDICARE RR Feb 06, RR PART [id number] [phone] MIK CHAND, PATIENT (WNR) (M) PART 2002 [id number] SHERYL A MEDICARE MEDICARE RR Feb 06, RR PART [id number] [phone] MIK CHAND, PATIENT (WNR) (M) PART 2002 B [id number] LEONARD B MEDICARE MEDICARE PART Jun 08, PART D [id number] LESLYE BAEZA, PATIENT PART D (M) D 2017 [id number] SHERYL (WNR) [facility] MEDICARE MEDIC Jun 08 [id number] [phone] DANIEL SERRANO [facility] [id number] SHERYL PACK KAREN SUPPL EMENT UNION MEDICARE UPREH Jun 08 [id number] [phone] BRIGIDA SERRANO TIENT PACIFIC SECONDARY S [id number] SHERYL PACK (NO B EXC) Selected Encounter This section includes the information on record at [place] for the Encounter. 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 Date/Time Primary/Secondary Diagnosis Name Provider Source Diagnosis Nov 20, 2021 PRIMARY Type 2 diabetes URVASHI MATHEWS [facility] 08[facility] AM mellitus w H H[facility] diabetic chronic kidney disease Nov 20, 2021 SECONDARY Athscl heart B[place]IURVASHI [place] [facility] 08:52 AM disease of [place] H H[facility] coronary artery w/o ang pctrs Nov 20, 2021 SECONDARY End stage renal [facility]URVASHI [facility] 08:[facility] AM disease H [facility] Nov 20, 2021 SECONDARY Hyp chr kidney [facility]VASHI [place] [facility] 08:52 AM disease w stage 5 H HCS chr kidney disease or ESRD Nov 20, 2021 SECONDARY Hyperlipidemia, URVASHI MATHEWS [facility] 08:[facility] AM unspecified H HCS Nov 20, 2021 SECONDARY Hypothyroidism, URVASHI MATHEWS [facility] 08:[facility] AM unspecified H HCS Nov 20, 2021 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 Date/Time Temperature Pulse Blood Respiratory SP02 Pain Height Weight Naun dy Source Pressure Rate Mass Index November 05 97.9 F 73 117/64 18 /min 95 % 0 72 in 208 lb 28 [place] 2021 10:06 /min mm[Hg] IS [facility] Social History: Smoking Status (Most current) and Tobacco Use (All prior to encounter date) This section includes the most current, and the historical, smoking and tobacco-related health factors from the [place] facility where the Encounter took place.Current Smoking Status This section includes the most current smoking, or tobacco-related health factor, from the [place] facility where the Encounter took place. Date/Time Current Smoking Status Comment Facility November 05, 2021 10:00 AM VA-TOBACCO FORMER USER [facility] Tobacco Use History This section includes a history of the smoking, or tobacco- related health factors, that were collected on or before the date of the Encounter. The data comes from the [place] facility where the Encounter took place. Date/Time Smoking Status/Tobacco Use Comment [facility] it November 05, 2021 10:00 AM VA-TOBACCO QUIT 15 YRS OR MORE [facility] Dec 10, 2018 12:57 PM VA-TOBACCO FORMER USER [facility] Dec 10, 2018 12:57 PM VA-TOBACCO QUIT 15 YRS OR MORE [facility] Feb 25, 2018 12:23 PM VA-TOBACCO FORMER USER [facility] Feb 25, 2018 12:23 PM VA-TOBACCO [...] this document. The data comes from all [facility]. Date Advance Directives Provider Source May 23, 2003 ADVANCE DIRECTIVE KINGS ANDREW [facility] Encounter Notes: All associated encounter notes This section contains the clinical notes associated to the Encounter. Date/Time Encounter Note(s) Provider Source November 05, 2021 10:07 INTERNAL MEDICINE OUTPATIENT NOTE: DARRELL HSU [facility] AM LOCAL TITLE: MEDICINE CLINIC NURSING NOTE STANDARD TITLE: INTERNAL MEDICINE OUTPATIENT NOT E DATE OF NOTE: NOVEMBER 05, 2021@10:07 ENTRY DATE: NOVEMBER 05, 2021@10:07:53 AUTHOR: KINGS HSU COSIGNER: URGENCY: STATUS: COMPLETED TYPE OF VISIT: Appointment Check In Type of appointment: In-person appointment REASON FOR VISIT: establish care ALLERGIES: SIMVASTATIN (October 13, 2003) DOXYCYCLINE (Apr 02, 2004) LISINOPRIL (Sep 17, 2006) ATORVASTATIN (Feb 22, 2009) VITAL SIGNS: Blood Pressure: 117/64 (11/05/2021 10:06) Pulse: 73 (11/05/2021 10:06) Respiration: 18 (11/05/2021 10:06) Temperature: 97.9 F [36.6 C] (11/05/2021 10:06) Weight: 208 lb [94.35 kg] (11/05/2021 10:06) Height: 72 in [182.9 cm] (11/05/2021 10:06) BMI: 28.3 O2 Sat: 95% (11/05/2021 10:06) Pain: 0 (11/05/2021 10:06) PAIN SCREEN: Patient is not having significant pain that the y wish to discuss with their provider today. MEDICATION Patient reports the following changes regarding the current pharmacy list of medications: zinc not every day Over the Counter/Herbal Medications: The patient states that they take some outside medications and/or herbals. Suicide Screen: C-SSRS Screening [place] Suicide Severity Rating Scale (C-SSRS) screener 1. Over the past month, have you wished you wer e or wished you could go to sleep and not wake up? No 2. Over the past month, have you had any actual thoughts of killing yourself? No 3. Over the past month, have you been thinking about how you might do this? Response not required due to responses to other questions. 4. Over the past month, have you had these thou ghts and had some intention of acting on them? Response not required due to responses to other questions. 5. Over the past month, have you started to wor k out or worked out the details of how to kill yourself? Response not required due to responses to other questions. 6. If yes, at any time in the past month did yo u intend to carry out this plan? Response not required due to responses to other questions. 7. In your lifetime, have you ever done anythin g, started to do anything, or prepared to do anything to end you r life (for example, collected pills, obtained a gun, gave away valu natalie, went to the roof but didn't jump)? No 8. If YES, was this within the past 3 months? Response not required due to responses to other questions. Depression Screening: Perform PHQ-2 A PHQ-2 screen was performed. The score was 0 w hich is a negative screen for depression. Over the past two weeks, how often have you bee n bothered by the following problems? 1. Little interest or pleasure in doing things Not at all 2. Feeling down, depressed, or hopeless Not at all Alcohol Use Screen (AUDIT-C): Alcohol Screen: SCREEN FOR ALCOHOL (AUDIT-C) An alcohol screening test (AUDIT-C) was negativ e (score=0). 1. How often did you have a drink containing al cohol in the past year? Never 2. How many drinks containing alcohol did you h ave on a typical day when you were drinking in the past year? Response not required due to responses to other questions. 3. How often did you have six or more drinks on one occasion in the past year? Response not required due to responses to other questions. Nursing Annual Screening: Fall History Screen During the past 12 months, have you had any fal ls? Patient reports having one fall without injury requiring treatment. MEDICATIONS: Patient does not have an active prescription fo r one of the following medications: Antihypertensives, Antidepressants , Antipsychotics, Diuretics, or Opioid Analgesics (Contolled Subs tance medications used for pain). FALL RISK ADVICE: Fall Risk Advice provided. Handout entitled Fa ll Prevention At Home reviewed and given to patient and/or significan t other. Script Talk Screen Are you able to read your prescription bottles with your glasses, magnifiers or other aids? Yes or patient not taking any prescriptions. Skin Screen Patient reports any current pressure ulcers, a history of pressure ulcers, or a wound from a medical staff credentialing coordinator or Patient is bed-confined or a wheelchair-user or Patient requires assistance to transfer/change position No, Skin Screen is Negative Home Abuse/Violence Screen Is your home free of abuse and violence? Yes Outpatient Nutrition Screen Body Mass Index (BMI)= 28.3 [place]: Collection DT Specimen Test Name Result Units R ef Range 03/15/2020 11:02 BLOOD HEMOGLOBIN A1C 6.0 % 4.0 - 6.0 [place] Hgb A1C: No data available [place] Hgb A1C: No data available Point of Care Hgb A1C: POC HGB A1C____ Is patient's BMI less than 18.5? No Does patient have swallowing, coughing, or chew ing problems affecting oral intake? No Has patient experienced unplanned weight loss o r gain greater than 10 pounds over the last 2 months? No Is patient's Hgb A1C (Glycosylated Hemoglobin) greater than 9.5? Information not available Is patient receiving Total Parenteral Nutrition (TPN) or Tube Feedings? No Patient Health Education Screen BARRIERS/SPECIAL NEEDS: Hearing limitations Visual limitations PREFERRED STYLE OF LEARNING: Watching something Listening Client Assistive Service (EDEL) Screen Does the patient require assistance with outpat ient visit? No Tobacco Use Screening: The patient is a former tobacco user. The patient quit fifteen or more years ago. Influenza Immunization: The patient has received the seasonal influenza vaccine for the current season at another location. Date: March 09, 2021 Location: Outside pcp Homelessness/Food Insecurity Screen: In the past 2 months, have you been living in s table housing that you own, rent, or stay in as part of a household? Y es - Living in stable housing. Are you worried or concerned that in the next 2 months you may NOT have stable housing that you own, rent, or stay in a s part of a household? No - Not worried about housing near future The reports the following: Within the past 12 months, you worried whether your food would run out before you got money to buy more. Never true Within the past 12 months, the food you bought just didn't last and you didn't have money to get more. Never true /es/ KINGS HSU LPN LICENSED PRACTICAL NURSE Signed: 11/05/2021 10:17 November 05, 2021 09:06 INTERNAL MEDICINE NOTE: URVASHI MATHEWS [facility] TITLE: MEDICINE CLINIC NOTE STANDARD TITLE: INTERNAL MEDICINE NOTE DATE OF NOTE: NOVEMBER 05, 2021@09:06 ENTRY DATE: NOVEMBER 05, 2021@09:06:23 AUTHOR: URVASHI MATHEWS EXP COSIGNER: URGENCY: STATUS: COMPLETED SUBJECT: CLINIC VISIT MEDICINE CLINIC NOTE Has ADDENDA CLINIC VISIT GENERAL INTERNAL MEDICINE CLINIC PROGRESS NOTE SHERYL SERRANO is a 81 year old MALE with th e following CHIEF COMPLAINT: establish care with a new physi collin THIS AN ESTABLISHED PATIENT IN THE PRIMARY CARE CLINIC HPI: Sheryl has a medical history notable for T2DM w /neuropathy, nephropathy, retinopahty, ESRD on HD, CAD s/p CABG, H TN, HLD, psoriasis, colon adenoma, CHLOE w/cpap, allergic rhinitis, ?COPD, GERD, hypothyr oidism Co-managed care: - PCP: Dr Dylan Xiong, [facility]: - Analytical Manager: Dr James Pérez [phone] - [place], [place] - Hemodialysis [place], [place] at [facility] -Urology: [facility] at [place] [facility] [phone], Dr. Prater - Gets yearly at [facility] in [facility] Other: - Urology: DR. ISRA RIVAS [facility] [address] [place] [address] -[facility] in [facility] for brigida faria to get longterm visits for bladder irrigation The following preventive care screening and othe r chronic disease management records were reviewed: Today we reviewed his medical history in detail. He is here to get established w/a new physician due to nazia nge in dialysis dates. Basically [facility], and all else is managed elsewher e. Immunizations: up to date, had 3rd COVID shot 10/10/21 Gets blood work drawn on dialysis. Had COVID and was hospitalized in Feb 2021. Also mentions hx of bilateral broken legs requir ing surgery in the past. Planning on having teeth removed and getting den tures in the near future Otherwise no acute concerns See nursing note regarding the following screening: Pain, suicide, depression, alcohol use, fall risk, skin screen, home abuse/ violence, nutriton, health education, tobacco use. Today's nurse's notes were reviewed. Active problems - Computerized Problem List is t he source for the followin. Hypothyroidism 2. Dyslipidemia 3. Diabetic neuropathy 4. Essential hypertension 5. Psoriasis Nos 6. 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 Adenoma of large intestine - colonoscopy and polypectomy 12/10, [place]oma at [place] 8. Diabetes mellitus 9. Cataract, Senile, Unsp 10. Coronary arteriosclerosis - s/p [id number] at [facility] in 07/15 11. Shared care - building consultant and GP - PCP: Dr Dylan Xiong, [facility]: - Analytical Manager: Dr James Pérez [phone] - [facility], [place], [place] 12. Diabetic renal disease - 10/2018: started hemodialysis @ [facility] in [facility] 13. Ganglion of wrist SURGICAL HISTORY: Reviewed FAMILY HISTORY: Reviewed. SOCIAL HISTORY: [place] in [place] Active and Recently Outpatient Medicatio ns (including Supplies): Active Outpatient Medications Status 1) ACCU-CHEK GUIDE (GLUCOSE) TEST STRIP 1 STRIP FOR ACTIVE TESTING THREE TIMES A DAY TO CHECK BLOOD SUGAR--USE WITHIN 3 MINUTES OF REMOVING FROM CONTAINER 2) ALBUTEROL 90MCG (CFC-F) 200D ORAL INHL INHALE 2 PUFFS ACTIVE BY INHALATION EVERY 4 HOURS NEEDED FOR BREAT JULISSA SHAKE WELL (FOR IMMEDIATE RELIEF). 3) CALCIUM ACETATE 667MG (CA 169MG) CAP TAKE ONE CAPSULE ACTIVE BY MOUTH THREE TIMES A DAY TO BIND PHOSPHATE 4) DIALYVITE TAB TAKE 1 TABLET BY MOUTH EVERY DA Y ACTIVE 5) DM 10/GUAIFENESN 100MG/5ML (ALC-F/SF)SYR TAKE 5 ML (1 ACTIVE TEASPOONFUL) BY MOUTH EVERY 8 HOURS NEEDED F OR COUGH 6) FLUTICAS 250/SALMETEROL 50 INHL DISK 60 INHAL E 1 PUFF ACTIVE BY INHALATION TWICE A DAY TO PREVENT TROUBLE BREATHING -RINSE MOUTH AFTER USING 7) FLUTICASONE PROP 50MCG 120D NASAL INHL SPRAY 1 SPRAY ACTIVE IN EACH NOSTRIL EVERY DAY USE REGULARLY FOR RELIEF OF ALLERGIES/CONGESTION 8) INSULIN,ASPART 100UN/ML SHIRAZ FLEXPEN 3ML INJE CT 5 ACTIVE UNITS UNDER THE SKIN TWICE A DAY TO DECREASE BL OOD SUGAR-- INJECT IMMEDIATELY BEFORE MEAL (PEN NIDHI L APPROVED) REPLACES REGULAR INSULIN PEN 9) INSULIN,GLARGINE 100 UNT/ML 3ML SOLOSTAR INJE CT 18 ACTIVE UNITS UNDER THE SKIN EVERY DAY FOR DIABETESDISCARD PEN 28 DAYS AFTER INITIAL USE 10) ISOSORBIDE MONONITRATE 30MG SA TAB TAKE ONE TABLET BY ACTIVE MOUTH EVERY DAY FOR CHEST PAIN 11) LANCET,SOFTCLIX USE 1 LANCET DIRECTED *DI SPOSE OF ACTIVE IN A HARD-PLASTIC CONTAINER WITH A SCREW-ON LIDCONTACT GARBAGE HAULER FOR PROPER DISPOSAL 12) LEVOTHYROXINE NA (SYNTHROID) 175MCG TAB TAKE ONE ACTIVE TABLET BY MOUTH EVERY DAY FOR THYROID 13) LIDOCAINE 4% TOP CREAM APPLY SMALL AMOUNT EV GOYO 4 ACTIVE HOURS NEEDED FOR NEUROPATHY PAIN 14) MONTELUKAST NA 10MG TAB TAKE ONE TABLET BY M OUTH ACTIVE EVERY DAY 15) NEEDLE,PEN 31G,8MM USE 1 NEEDLE UNDER THE SK IN ACTIVE DIRECTED *DISPOSE OF IN A HARD-PLASTIC CONTAINE R WITH A SCREW-ON LID CONTACT GARBAGE HAULER FO R PROPER DISPOSAL 16) PANTOPRAZOLE NA 40MG EC TAB TAKE ONE TABLET BY MOUTH ACTIVE EVERY DAY ONE-HALF HOUR BEFORE EATING. 17) PRAVASTATIN NA 40MG TAB TAKE ONE TABLET BY M OUTH AT ACTIVE BEDTIME FOR CHOLESTEROL 18) TIOTROPIUM 2.5MCG/ACTUAT 60D ORAL INHL INHAL E TWO ACTIVE PUFFS BY INHALATION EVERY DAY FOR BREATHING 19) VANICREAM TOP CREAM APPLY TO DRY SKIN TOPICA LLY EVERY ACTIVE DAY NEEDED FOR DRY SKIN Active Non-VA Medications Status 1) Non-VA COENZYME Q10 CAP/TAB 1 TABLET COENZYME Q10 ACTIVE 100MG MOUTH EVERY DAY 2) Non-VA FISH OIL 1000MG (500MG DHA/EPA) CAP 12 00MG ACTIVE MOUTH EVERY DAY 3) Non-VA NITROGLYCERIN 0.4MG SL TAB 0.4MG UNDER THE ACTIVE TONGUE NEEDED 4) Non-VA NON VA MED NOT LISTED MISCELLANEOUS BLANK PER BEE ACTIVE VITAMIN COMPLEX EVERY DAY 5) Non-VA PROBIOTIC CAP 1 CAPSULE MOUTH EVERY DA Y ACTIVE 6) Non-VA VITAMIN E 180MG (400UNIT) CAP 400UNIT MOUTH ACTIVE EVERY DAY 7) Non-VA ZINC SULFATE TAB 50MG MOUTH EVERY DAY ACTIVE MEDICATION RECONCILIATION: completed ALLERGIES: SIMVASTATIN (October 13, 2003) DOXYCYCLINE (Apr 02, 2004) LISINOPRIL (Sep 17, 2006) ATORVASTATIN (Feb 22, 2009) EXAM: Previous VS: BP: 97/53 (03/15/2020 11:55) Weight: WEIGHTS IN LAST 6 MONTHS - NONE FOUND GEN: Alert, no acute distress Arrives in a motorizes scooter, w/. Very hard of hearing and despite my shouting, he could not hear me. Mainly verified history w/. Psych: actively engaged in conversation, full ra nge of affect, no psychomotor slowing, no signs of agitation TEST RESULTS: Not available, drawn on dialysis Patient was informed of available lab, imaging, and other study results associated with today's visit. ASSESSMENT AND PLAN: T2DM w/neuropathy, nephropathy, retinopahty, ESRD on HD, CAD s/p CABG, H TN, HLD, psoriasis, colon adenoma, CHLOE w/cpap, allergic rhinitis, ?COPD, GERD, hypothyr oidism Comanaged. RTC one year and as needed. Patient/Surrogate indicates readiness to learn, verbalizes understanding,agreement and satisfaction with th e treatment plan. Time spent today, including reviewing prior note s, prior test results, and separately obtained history, performining a medi isis appropriate exam and/or evaluation, conselling a nd education of patient/surrogate, documentation of clinical inf ormation in the EHR, independently interpreting results, comm unicating results to patient/surrogate and care coordination: Total Time: 1 hour Uvrashi Mathews MD General Internal Medicine [facility] PACT LAYNE Cameron /katey/ Urvashi Mathews MD Physician Signed: 11/05/2021 10:41 04/13/2022 ADDENDUM STATUS: COMPLETED Additional non-VA clinicians/clinics: [facility]: [facility]: [facility]: TAMIKO Jarquin, Dr. Boubacar Jesus /katey/ Urvashi Mathews MD Physician Signed: 04/13/2022 14:28 04/15/2022 ADDENDUM STATUS: COMPLETED Additional non-VA clinicians: [place] [facility] BRIGIDA Jesus /katey/ Urvashi Mathews MD Physician Signed: 04/15/2022 14:14 November 01, 2021 03:54 INTERNAL MEDICINE NOTE: URVASHI MATHEWS [facility] LOCAL TITLE: MEDICINE CLINIC NOTE STANDARD TITLE: INTERNAL MEDICINE NOTE DATE OF NOTE: NOVEMBER 01, 2021@15:54 ENTRY DATE: NOVEMBER 01, 2021@15:54:40 AUTHOR: URVASHI MATHEWS EXP COSIGNER: URGENCY: STATUS: COMPLETED SUBJECT: CHART REVIEW/PRECHARTING CHART REVIEW/PRECHARTING GENERAL INTERNAL MEDICINE CLINIC PROGRESS NOTE SHERYL SRERANO is a 81 year old MALE with th e following CHIEF COMPLAINT: establish care with a new physi collin THIS AN ESTABLISHED PATIENT IN THE PRIMARY CARE CLINIC HPI: Sheryl has a medical history notable for T2DM w /neuropathy, nephropathy, retinopahty, ESRD on HD, CAD s/p CABG, H TN, HLD, psoriasis, colon adenoma, CHLOE w/cpap [facility] - Anal[facility] Manager: Dr James Pérez [phone] - [place], [place] - Hemodialysis [place], [place] at [facility] -Urology: [facility] [phone], Dr. Prater Other: - Urology: DR. ISRA RIVAS [facility] [address] [place] [address] -[facility] in [facility] for brigida faria to get longterm visits for bladder irrigation Today's nurse's notes were reviewed. Active problems - Computerized Problem List is t he source for the followin. Hypothyroidism 2. Dyslipidemia 3. Diabetic neuropathy 4. Essential hypertension 5. Psoriasis Nos 6. 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 Adenoma of large intestine - colonoscopy and polypectomy 12/10, [place]oma [place] 8. Diabetes mellitus 9. Cataract, Senile, Unsp 10. Coronary arteriosclerosis - s/p [id number] at [facility] in 07/15 11. Shared care - building consultant and GP - PCP: Dr Dylan Xiong, [facility]: - Analytical Manager: Dr James Pérez [phone] - [place], [place] 12. Diabetic renal disease - 10/2018: started hemodialysis @ [facility] in [place] 13. Ganglion of wrist SURGICAL HISTORY: Reviewed FAMILY HISTORY: Reviewed. SOCIAL HISTORY: [place] in [place] Active and Recently Outpatient Medicatio ns (including Supplies): Active Outpatient Medications Status 1) ACCU-CHEK GUIDE (GLUCOSE) TEST STRIP 1 STRIP FOR ACTIVE TESTING THREE TIMES A DAY TO CHECK BLOOD SUGAR--USE WITHIN 3 MINUTES OF REMOVING FROM CONTAINER 2) ALBUTEROL 90MCG (CFC-F) 200D ORAL INHL INHALE 2 PUFFS ACTIVE BY INHALATION EVERY 4 HOURS NEEDED FOR BREAT JULISSA SHAKE WELL (FOR IMMEDIATE RELIEF). 3) CALCIUM ACETATE 667MG (CA 169MG) CAP TAKE ONE CAPSULE ACTIVE BY MOUTH THREE TIMES A DAY TO BIND PHOSPHATE 4) DIALYVITE TAB TAKE 1 TABLET BY MOUTH EVERY DA Y ACTIVE 5) DM 10/GUAIFENESN 100MG/5ML (ALC-F/SF)SYR TAKE 5 ML (1 ACTIVE TEASPOONFUL) BY MOUTH EVERY 8 HOURS NEEDED F OR COUGH 6) FLUTICAS 250/SALMETEROL 50 INHL DISK 60 INHAL E 1 PUFF ACTIVE BY INHALATION TWICE A DAY TO PREVENT TROUBLE BREATHING -RINSE MOUTH AFTER USING 7) FLUTICASONE PROP 50MCG 120D NASAL INHL SPRAY 1 SPRAY ACTIVE IN EACH NOSTRIL EVERY DAY USE REGULARLY FOR RELIEF OF ALLERGIES/CONGESTION 8) INSULIN,ASPART 100UN/ML SHIRAZ FLEXPEN 3ML INJE CT 5 ACTIVE UNITS UNDER THE SKIN TWICE A DAY TO DECREASE BL OOD SUGAR-- INJECT IMMEDIATELY BEFORE MEAL (PEN NIDHI L APPROVED) REPLACES REGULAR INSULIN PEN 9) INSULIN,GLARGINE 100 UNT/ML 3ML SOLOSTAR INJE CT 18 ACTIVE UNITS UNDER THE SKIN EVERY DAY FOR DIABETESDISCARD PEN 28 DAYS AFTER INITIAL USE 10) ISOSORBIDE MONONITRATE 30MG SA TAB TAKE ONE TABLET BY ACTIVE MOUTH EVERY DAY FOR CHEST PAIN 11) LANCET,SOFTCLIX USE 1 LANCET DIRECTED *DI SPOSE OF ACTIVE IN A HARD-PLASTIC CONTAINER WITH A SCREW-ON LIDCONTACT GARBAGE HAULER FOR PROPER DISPOSAL 12) LEVOTHYROXINE NA (SYNTHROID) 175MCG TAB TAKE ONE ACTIVE TABLET BY MOUTH EVERY DAY FOR THYROID 13) LIDOCAINE 4% TOP CREAM APPLY SMALL AMOUNT EV GOYO 4 ACTIVE HOURS NEEDED FOR NEUROPATHY PAIN 14) MONTELUKAST NA 10MG TAB TAKE ONE TABLET BY M OUTH ACTIVE EVERY DAY 15) NEEDLE,PEN 31G,8MM USE 1 NEEDLE UNDER THE SK IN ACTIVE DIRECTED *DISPOSE OF IN A HARD-PLASTIC CONTAINE R WITH A SCREW-ON LID CONTACT GARBAGE HAULER FO R PROPER DISPOSAL 16) PANTOPRAZOLE NA 40MG EC TAB TAKE ONE TABLET BY MOUTH ACTIVE EVERY DAY ONE-HALF HOUR BEFORE EATING. 17) PRAVASTATIN NA 40MG TAB TAKE ONE TABLET BY M OUTH AT ACTIVE BEDTIME FOR CHOLESTEROL 18) TIOTROPIUM 2.5MCG/ACTUAT 60D ORAL INHL INHAL E TWO ACTIVE PUFFS BY INHALATION EVERY DAY FOR BREATHING 19) VANICREAM TOP CREAM APPLY TO DRY SKIN TOPICA LLY EVERY ACTIVE DAY NEEDED FOR DRY SKIN Active Non-VA Medications Status 1) Non-VA COENZYME Q10 CAP/TAB 1 TABLET COENZYME Q10 ACTIVE 100MG MOUTH EVERY DAY 2) Non-VA FISH OIL 1000MG (500MG DHA/EPA) CAP 12 00MG ACTIVE MOUTH EVERY DAY 3) Non-VA NITROGLYCERIN 0.4MG SL TAB 0.4MG UNDER THE ACTIVE TONGUE NEEDED 4) Non-VA NON VA MED NOT LISTED MISCELLANEOUS BLANK PER BEE ACTIVE VITAMIN COMPLEX EVERY DAY 5) Non-VA PROBIOTIC CAP 1 CAPSULE MOUTH EVERY DA Y ACTIVE 6) Non-VA VITAMIN E 180MG (400UNIT) CAP 400UNIT MOUTH ACTIVE EVERY DAY 7) Non-VA ZINC SULFATE TAB 50MG MOUTH EVERY DAY ACTIVE MEDICATION RECONCILIATION: completed ALLERGIES: SIMVASTATIN (October 13, 2003) DOXYCYCLINE (Apr 02, 2004) LISINOPRIL (Sep 17, 2006) ATORVASTATIN (Feb 22, 2009) EXAM: Previous VS: BP: 97/53 (03/15/2020 11:55) Weight: WEIGHTS IN LAST 6 MONTHS - NONE FOUND GEN: Alert, no acute distress EENT: Pupils equal, round, r eactive to light. Ear canals patent w/o significant cerumen, TM's normal,nasal passages clear w/norm al appearing turbinates, oral mucosa moist,pharynx without erythema or exudate Neck: Full active ROM, no ce rvical lymphadenopathy,thyroid smooth, symmetric, no nodules Lungs: Clear to auscultation throughout Cardiac: Regular rate and rhythm, no murmurs, ru bs or gallops, no carotid bruits, JVP: normal/not elevated Abdomen: Normal bowel sounds , soft, non tender,no hepatosplenomegaly or masses, no CVA tenderness or masses Extremities: No peripheral edema, DP pulses 2+, no cyanosis Skin: No rashes or suspicious lesions on exposed surfaces MSK: No joint deformities noted on hands, no kyp hosis Neuro: CN's 2-12 intact, able to get on/off exam table without assistance. Strength grossly intact. Psych: actively engaged in conversation, full ra nge of affect, no psychomotor slowing, no signs of agitation TEST RESULTS: Patient was informed of available lab, imaging, and other study results associated with today's visit. ASSESSMENT AND PLAN: Patient/Surrogate indicates readiness to learn, verbalizes understanding,agreement and satisfaction with th e treatment plan. Time spent today, including reviewing prior note s, prior test results, and separately obtained history, performining a medi isis appropriate exam and/or evaluation, conselling a nd education of patient/surrogate, documentation of clinical inf ormation in the EHR, independently interpreting results, comm unicating results to patient/surrogate and care coordination: Total Time: Urvashi Mathews MD General Internal Medicine [facility] PACT LAYNE 4F /es/ Urvashi Mathews MD Physician Signed: 11/01/2021 16:09
--- OUTSIDE RECORDS SUMMARY | 2022-04-17 14:24 | XMS_ITS | Encounter Summary ---
:1940 Author Organization [facility] Address [address] [place] [address] Support Name Relationship Address Phone JAGRUTI SERRANO Unavailable [address] [place] [phone] JAGRUTI SERRANO Unavailable [address] [place] [phone] Insurance Providers: All historical and current Section [...] MEDICARE MEDICARE PART Feb 06, PART A [id number] 800 ALANNAHGonzalo GARCÍA (WNR) (M) A 2002 [id number] [phone] LEONARD MEDICARE MEDICARE PART Feb 06, PART B [id number] 800 Gonzalo ESRRANO (WNR) (M) B 2002 [id number] [phone] LEONARD MEDICARE MEDICARE RR Feb 06, RR PART [id number] [id number] KAWILMER LIK, PATIENT (WNR) (M) PART 2002 A [id number] SHERYL A MEDICARE MEDICARE RR Feb 06, RR PART [id number] [id number] KADER LIK, PATIENT (WNR) (M) PART 2002 B [id number] SHERYL B MEDICARE MEDICARE PART Jun 08, PART D [id number] LESLYE BAEZA, PATIENT PART D (M) D 2017 [id number] 5 SHERYL (WNR) UNION MEDICARE MEDIC Jun 08 [id number] [phone] DANIEL SERRANO [facility] 2009 [id number] SHERYL PINEDATierPM KAREN SUPPL EMENT [facility] MEDICARE UPREH Jun 08 [id number] [address] SERRANO IMANI [facility] S 2009 [id number] SHERYL [facility] [employer] (NO B EXC) Selected Encounter This section includes the information on record at PA for the Encounter. Date/Time Encounter Type Encounter Description Reason Provider Source October 11, 2021 11:24 Outpatient Encounter TELEPHONE TRIAGE AM IHE Encounter Template Text not used by PA Plan of Treatment: Future Appointments (+ 6 months) and Future Tests (+/- 45 days) The Plan of Treatment section includes future care activities for the patient from all [place] treatmentfacilst. [facility]. This section includes future appointments and future orders which are active, pending orscheduled.Future Appointments This section includes appointments that were scheduled to occur 6 months from the date of the Encounter, up to a maximum of 20 appointments. The data comes from all PA treatment facilities. Appointment Date/Time Appointment Type Appointment Facili ty Name November 05, 2021 10:00 AM AMBULATORY - MEDICINE [facility] Social History: Smoking Status (Most current) and Tobacco Use (All prior to encounter date) This section includes the most current, and the historical, smoking and tobacco-related health factors from the PA facility where the Encounter took place.Current Smoking Status This section includes the most current smoking, or tobacco-related health factor, from the PA facility where the Encounter took place. Date/Time Current Smoking Status Comment Facility Dec 10, 2018 12:57 PM VA-TOBACCO QUIT 15 YRS OR MORE [facility] Tobacco Use History This section includes a history of the smoking, or tobacco- related health factors, that were collected on or before the date of the Encounter. The data comes from the [place] facility where the Encounter took place. Date/Time Smoking Status/Tobacco Use Comment Facil ity Dec 10, 2018 12:57 PM VA-TOBACCO QUIT 15 YRS OR MORE [facility] Feb 25, 2018 12:23 PM VA-TOBACCO FORMER USER [facility] Feb 25, 2018 12:23 PM VA-TOBACCO QUIT 15 YRS OR MORE [facility] Apr 10, 2015 02:55 PM FORMER TOBACCO USER 7Y OR GREATER [facility] Apr 27, 2014 10:17 AM FORMER TOBACCO USER 7Y OR GREATER [facility] Jun 18, 2006 07:23 AM FORMER TOBACCO USER 7Y OR GREATER [facility] Advance Directives: All historical and current Section Date Range: From patient's date of to the date document was created. This section includes ALL of a patient's completed or amended [place] Advance and Rescinded Directives. The entries below indicate that a directive exists for the patient, but an actual copy is not included with this document. The data comes from all PA facilities. Date Advance Directives Provider Source May 23, 2003 ADVANCE DIRECTIVE KINGS ANDREW [facility] Encounter Notes: All associated encounter notes This section contains the clinical notes associated to the Encounter. Date/Time Encounter Note(s) Provider Source October 11, 2021 11:24 AM REPORT OF CONTACT: [facility] LOCAL TITLE: PATIENT CONTACT NOTE STANDARD TITLE: REPORT OF CONTACT DATE OF NOTE: OCTOBER 11, 2021@11:24 ENTRY DATE: OCTOBER 11, 2021@11:24:16 AUTHOR: CLARISA GLOVER EXP COSIGNER: URGENCY: STATUS: COMPLETED PATIENT CONTACT NOTE Has ADDENDA Patient contact Name of [place]: ZACHSHERYL Chani Name/Relationship of Contact if other than Veter an: Jagruti, Spouse ( or [phone]) Date & Time of Contact: October@11:24 Type of Contact: Telephone Reason for Contact: Kaveh has dialysis M, W, F 10:30 - 15:[address] Dalton's schedule (09:00 won't work due to drive time). Geology Instructor offered to schedule with another provider due to availability but Jagruti declines for now, requesting to speak with PACT first. /katey/ CLARISA DOSS [address] [facility] MSA Signed: 10/11/2021 11:31 Receipt Acknowledged By: 10/11/2021 15:20 /katey/ TIFFANI DURHAM,RN RN PACT Strike Off Machine Operator 10/11/2021 14:51 /katey/ CASANDRA DALTON MD Staff Physician 10/11/2021 ADDENDUM STATUS: COMPLETED Currently, I only have clinic time on his dialys is days. I would recommend changing VA providers. I see that he still sees his community providers for most of his active care. Please call to discuss. /katey/ CASANDRA DALTON MD Staff Physician Signed: 10/11/2021 14:52 Receipt Acknowledged By: 10/15/2021 12:24 /katey/ TIFFANI DURHAMRN RN PACT Strike Off Machine Operator 10/15/2021 ADDENDUM STATUS: COMPLETED Spoke with pts . Advised her PCP was only av ailable in clinic on . Advised her pt could be reassigned to another pr ovider who is available on Tuesdays and . Will forward to clinic ANM to assist with reassigning a new provider. thanks. /katey/ TIFFANI DURHAMRN RN PACT Strike Off Machine Operator Signed: 10/15/2021 12:35 Receipt Acknowledged By: * AWAITING SIGNATURE * LA LEMUS
--- OUTSIDE RECORDS SUMMARY | 2022-04-17 14:24 | XMS_ITS | Encounter Summary ---
:1940 Author Organization [facility] Address [address] [place] [address] Support Name Relationship Address Phone SUZANNE SERRANO Unavailable [address] [place] [phone] SUZANNE SERRANO Unavailable [address] [place] [phone] Insurance Providers: All historical and current Section [...] MEDICARE MEDICARE PART Feb 06, PART A [id number] 800 ALANNAHGonzalo GARCÍA (WNR) (M) A 2002 [phone] LEONARD MEDICARE MEDICARE PART Feb 06, PART B [id number] 800 Gonzalo SERRANO (WNR) (M) B 2002 [phone] LEONARD MEDICARE MEDICARE RR Feb 06, RR PART [id number] [id number] KADER LIK, PATIENT (WNR) (M) PART 2002 A [id number] SHERYL A MEDICARE MEDICARE RR Feb 06, RR PART [id number] [id number] KADER LIK, PATIENT (WNR) (M) PART 2002 B [id number] 2 SHERYL B MEDICARE MEDICARE PART Jun 08, PART D [id number] LESLYE BAEZA, PATIENT PART D (M) D 2017 [id number] 5 SHERYL (WNR) [employer] MEDICARE MEDIC Jun 08 [id number] [phone] DANIEL SERRANO PACIFIC SUPPLEMEN ARE 2009 [id number] SHERYL PINEDABetterLesson KAREN SUPPL EMENT [facility]ION MEDICARE UPREH Jun 08 [id number] [address] SERRANOMERLENE [facility] S 2009 [id number] SHERYL PACK (NO B EXC) Selected Encounter This section includes the information on record at [place] for the Encounter. Date/Time Encounter Type Encounter Description Reason Provider Source October 15, 2021 03:20 Outpatient Encounter PRIMARY CARE/MEDICINE PM IHE Encounter Template Text not used by [place] Plan of Treatment: Future Appointments (+ 6 months) and Future Tests (+/- 45 days) The Plan of Treatment section includes future care activities for the patient from all [place] [facility]. This section includes future appointments and future orders which are active, pending orscheduled.Future Appointments This section includes appointments that were scheduled to occur 6 months from the date of the Encounter, up to a maximum of 20 appointments. The data comes from all [place] treatment facilities. Appointment Date/Time Appointment Type Appointment Facili ty Name November 05, 2021 10:00 AM AMBULATORY - MEDICINE [facility] Social History: Smoking Status (Most current) and Tobacco Use (All prior to encounter date) This section includes the most current, and the historical, smoking and tobacco-related health factors from the [place] facility where the Encounter took place.Current Smoking Status This section includes the most current smoking, or tobacco-related health factor, from the [place] facility where the Encounter took place. Date/Time Current Smoking Status Comment Facility Dec 10, 2018 12:57 PM VA-TOBACCO QUIT 15 YRS OR MORE [facility] Tobacco Use History This section includes a history of the smoking, or tobacco- related health factors, that were collected on or before the date of the Encounter. The data comes from the [place] facility where the Encounter took place. Date/Time Smoking Status/Tobacco Use Comment Facil it Dec 10, 2018 12:57 PM VA-TOBACCO QUIT 15 YRS OR MORE [facility] Feb 25, 2018 12:23 PM VA-TOBACCO FORMER USER MIN [facility] Feb 25, 2018 12:23 PM VA-TOBACCO QUIT 15 YRS OR MORE [facility] Apr 10, 2015 02:55 PM FORMER TOBACCO USER 7Y OR GREATER [facility] Apr 27, 2014 10:17 AM FORMER TOBACCO USER 7Y OR GREATER [facility] Jun 18, 2006 07:23 AM FORMER TOBACCO USER 7Y OR GREATER [facility] Advance Directives: All historical and current Section Date Range: From patient's date of to the date document was created. This section includes ALL of a patient's completed or amended [place] Advance and Rescinded Directives. The entries below indicate that a directive exists for the patient, but an actual copy is not included with this document. The data comes from all [place] facilities. Date Advance Directives Provider Source May 23, 2003 ADVANCE DIRECTIVE KINGS ANDREW [facility] Encounter Notes: All associated encounter notes This section contains the clinical notes associated to the Encounter. Date/Time Encounter Note(s) Provider Source October 15, 2021 03:22 PM REPORT OF CONTACT: MADDIE MURILLO [facility] LOCAL TITLE: APPOINTMENT SCHEDULING NOTE STANDARD TITLE: REPORT OF CONTACT DATE OF NOTE: OCTOBER 15, 2021@15:22 ENTRY DATE: OCTOBER 15, 2021@15:22:26 AUTHOR: MADDIE MURILLO EXP COSIGNER: URGENCY: STATUS: COMPLETED Attempt to schedule return to clinic 1st Contact: Called [facility] at: M Left message Phone number left for to call back: 2nd Contact: Sent letter by regular [place] mail to address on [facility] aris SHERYL SERRANO [address] [place] [address] Additional information/contact attempts: Received message from ANM patient requests a Provider that has clinic availability on Tuesdays and . If [facility] calls back, schedule appointment for : [facility] ROC[facility]LE 3 0min with any provider accepting ROCHELLE and has clinic availablity on Tuesdays and . Is the RTC marked as no later than? Theresa /ktaey/ MADDIE MURILLO MSA Sales Account Coordinator Signed: 10/15/2021 15:23
--- OUTSIDE RECORDS SUMMARY | 2022-04-17 14:25 | XMS_ITS | Encounter Summary ---
:1940 Author Organization [facility] Address [address] [place] [address] Support Name Relationship Address Phone SUZANNE SERRANO Unavailable [address] [place] [phone] SUZANNE SERRANO Unavailable [address] [place] [phone] Insurance Providers: All historical and current Section [...] MEDICARE MEDICARE PART Feb 06, PART A [id number] 800 ALANNAHGonzalo GARCÍA (WNR) (M) A 2002 [id number] [id number] LEONARD MEDICARE MEDICARE PART Feb 06, PART B [id number] 800 ALANNAHGonzalo GARCÍA (WNR) (M) B 2002 [id number] [phone] LEONARD MEDICARE MEDICARE RR Feb 06, RR PART [id number] KAWILMER LIK, PATIENT (WNR) (M) PART 2002 A [id number] SHERYL A MEDICARE MEDICARE RR Feb 06, RR PART [id number] [id number] KADER LIK, PATIENT (WNR) (M) PART 2002 B [id number] 2 SHERYL B MEDICARE MEDICARE PART Jun 08, PART D [id number] LESLYE BAEZA, PATIENT PART D (M) D 2017 [id number] 5 SHERYL (WNR) [facility] MED[employer]ARE MEDIC Jun 08 [id number] [phone] DANIEL SERRANO SULEIMAN SUPPLEMEN ARE 2009 [id number] SHERY[address] PINEDAMaeglin Software KAREN SUPPL EMENT [employer] MEDICARE UPREH Jun 08 [id number] [address] SERRANO TIEMERLENE [facility] S 2009 [id number] SHERYL PACK (NO B EXC) Selected Encounter This section includes the information on record at [place] for the Encounter. Date/Time Encounter Type Encounter Description Reason Provider Source Aug 12, 2021 10:30 Outpatient Encounter COMMUNITY CARE AM CONSULT IHE Encounter Template Text not used by [place] Plan of Treatment: Future Appointments (+ 6 months) and Future Tests (+/- 45 days) The Plan of Treatment section includes future care activities for the patient from all [place] treatmentfacilities. This section includes future appointments and future orders which are active, pending orscheduled.Future Appointments This section includes appointments that were scheduled to occur 6 months from the date of the Encounter, up to a maximum of 20 appointments. The data comes from all [place] treatment facilities. Appointment Date/Time Appointment Type Appointment Facili ty Name November 05, 2021 10:00 AM AMBULATORY - MEDICINE [facility] Advance Directives: All historical and current Section Date Range: From patient's date of to the date document was created. This section includes ALL of a patient's completed or amended [place] Advance and Rescinded Directives. The entries below indicate that a directive exists for the patient, but an actual copy is not included with this document. The data comes from all [place] facilities. Date Advance Directives Provider Source May 23, 2003 ADVANCE DIRECTIVE KINGS ANDREW [facility]
--- OUTSIDE RECORDS SUMMARY | 2022-04-17 14:25 | XMS_ITS | Encounter Summary ---
:1940 Author Organization [facility] Address [address] [place] [address] Support Name Relationship Address Phone SUZANNE SERRANO Unavailable [address] [place] [phone] SUZANNE SERRANO Unavailable [address] [place] [phone] Insurance Providers: All historical and current Section [...] MEDICARE MEDICARE PART Feb 06, PART A [id number] 800 Gonzalo SERRANO (WNR) (M) A 2002 [id number] LEONARD MEDICARE MEDICARE PART Feb 06, PART B [id number] 800 Gonzalo SERRANO (WNR) (M) B 2002 [id number] LEONARD MEDICARE MEDICARE RR Feb 06, RR PART [id number] [id number] MIK CHAND, PATIENT (WNR) (M) PART 2002 A [id number] 2 SHERYL A MEDICARE MEDICARE RR Feb 06, RR PART [id number] MIK CHAND, PATIENT (WNR) (M) PART 2002 B [id number] 2 SHERYL B MEDICARE MEDICARE PART Jun 08, PART D [id number] LESLYE BAEZA, PATIENT PART D (M) D 2017 [id number] 5 SHERYL (WNR) [facility] MEDICARE MEDIC Jun 08 [id number] [phone] DANIEL SERRANO PACIFIC SUPPLEMEN ARE 2009 [id number] SHERYL PACK KAREN SUPPL EMENT [facility] MEDICARE UPREH Jun 08 [id number] DELORES SERRANO IMANI [facility] S 2009 [id number] SHERYL PACK (NO B EXC) Selected Encounter This section includes the information on record at CT for the Encounter. Date/Time Encounter Type Encounter Description Reason Provider Source Mar 20, 2022 02:17 CASE MANAGEMENT ADMIN PAT ACTIVTIES MANOHAR GAFFNEYJULIANE Hairston M PM (MASNONCT) IHE Encounter Template Text not used by CT Plan of Treatment: Future Appointments (+ 6 months) and Future Tests (+/- 45 days) The Plan of Treatment section includes future care activities for the patient from all CT treatmentfacilities. This section includes future appointments and future orders which are active, pending orscheduled.Active, Pending, and Scheduled Orders This section includes a listing of several types of active, pending, and scheduled orders, including clinic medications orders, diagnostic test orders, procedure orders and consult orders; where the start date of the order is 45 days before the date of the Encounter or 45 days after the date of the Encounter. The data comes from all CT treatment facilities. Test Date/Time Test Type Test Details Facility Name Mar 31, 2022 07:47 AM Consult Order [facility] Cons Installer [employer] Social History: Smoking Status (Most current) and Tobacco Use (All prior to encounter date) This section includes the most current, and the historical, smoking and tobacco-related health factors from the CT facility where the Encounter took place.Current Smoking Status This section includes the most current smoking, or tobacco-related health factor, from the CT facility where the Encounter took place. Date/Time Current Smoking Status Comment Facility November 05, 2021 10:00 AM VA-TOBACCO FORMER USER [facility] Tobacco Use History This section includes a history of the smoking, or tobacco- related health factors, that were collected on or before the date of the Encounter. The data comes from the CT facility where the Encounter took place. Date/Time Smoking Status/Tobacco Use Comment [facility] it November 05, 2021 10:[address]-TOBACCO QUIT 15 YRS OR MORE [facility] Dec 10, 2018 12:57 PM VA-TOBACCO FORMER USER [facility] Dec 10, 2018 12:57 PM VA-TOBACCO QUIT 15 YRS OR MORE [facility] Feb 25, 2018 12:23 PM VA-TOBACCO FORMER USER [facility] Feb 25, 2018 12:23 PM VA-TOBACCO QUIT 15 YRS OR MORE [facility] Apr 10, 2015 02:55 PM FORMER TOBACCO USER 7Y OR GREATER [facility] Apr 27, 2014 10:17 AM FORMER TOBACCO USER 7Y OR GREATER [facility] Jun 18, 2006 07:23 AM FORMER TOBACCO USER 7Y OR GREATER [facility] Advance Directives: All historical and current Section Date Range: From patient's date of to the date document was created. This section includes ALL of a patient's completed or amended CT Advance and Rescinded Directives. The entries below indicate that a directive exists for the patient, but an actual copy is not included with this document. The data comes from all CT facilities. Date Advance Directives Provider Source May 23, 2003 ADVANCE DIRECTIVE KINGS ANDREW [facility] Encounter Notes: All associated encounter notes This section contains the clinical notes associated to the Encounter. Date/Time Encounter Note(s) Provider Source Mar 20, 2022 02:17 PM ASSOCIATE PROFESSOR OF RADIOLOGY REFERRAL NOTE: JULIANE CHAUHAN [facility] LOCAL TITLE: TRAVELING PROGRESS NOTE STANDARD TITLE: ASSOCIATE PROFESSOR OF RADIOLOGY REFERRAL NOTE DATE OF NOTE: MAR 20, 2022@14:17 ENTRY DATE: MAR 20, 2022@14:17:34 AUTHOR: JULIANE CHAUHAN EXP COSIGNER: URGENCY: STATUS: COMPLETED TRAVELING PROGRESS NOTE Has ADDENDA 's , [place], LVM and I called her back. She asked how they go about getting bladder flushes again, while in [place]. I ex plained the traveling consult process. He gets bladder flushes in [place] t hru the community provider/Medicare. She understands to contact md s PCP team to discuss the details of what is needed/travel dates/address. She was appreciative of the assistance. /katey/ JULIANE CHAUHAN REGISTERED NURSE Signed: 03/20/2022 14:19 Receipt Acknowledged By: 03/20/2022 15:42 /katey/ DREA PARKER RN REGISTERED NURSE 03/20/2022 ADDENDUM STATUS: COMPLETED Attempted to call patient, was unable to reach t hem or leave a detailed VM. Left a generic VM with instructions to call back . Have placed TVC consult for bladder irrigation to be done by home health nurse, awaiting PCP review and signature. /katey/ DREA PARKER RN REGISTERED NURSE Signed: 03/20/2022 15:42
--- OUTSIDE RECORDS SUMMARY | 2022-04-17 14:25 | XMS_ITS | Encounter Summary ---
:1940 Author Organization [facility] Address [address] [place] [address] Support Name Relationship Address Phone SUZANNE SERRANO Unavailable [address] [place] [phone] SUZANNE SERRANO Unavailable [address] [place] [phone] Insurance Providers: All historical and current Section [...] MEDICARE MEDICARE PART Feb 06, PART A [id number] 800 ALANNAHGonzalo GARCÍA (WNR) (M) A 2002 [id number] LEONARD MEDICARE MEDICARE PART Feb 06, PART B [id number] 800 ALANNAHGonzalo GARCÍA (WNR) (M) B 2002 [id number] [phone] LEONARD MEDICARE MEDICARE RR Feb 06, RR PART [id number] KAWILMER LIK, PATIENT (WNR) (M) PART 2002 A [id number] SHERYL A MEDICARE MEDICARE RR Feb 06, RR PART [id number] KADER LIK, PATIENT (WNR) (M) PART 2002 B [id number] SHERYL B MEDICARE MEDICARE PART Jun 08, PART D [id number] LESLYE BAEZA, PATIENT PART D (M) D 2017 [id number] SHERYL (WNR) [facility] MEDICARE MEDIC Jun 08 [id number] [phone] DANIEL SERRANO SULEIMAN SUPPLEMEN ARE 2009 [id number] SHERYL CHVOZ KAREN SUPPL EMENT UNION MEDICARE UPREH Jun 08 [id number] DELOR[address] SERRANO TIEMERLENE [facility] S 2009 [id number] SHERYL PACK (NO B EXC) Selected Encounter This section includes the information on record at [place] for the Encounter. Date/Time Encounter Type Encounter Description Reason Provider Source May 30, 2021 08:00 Outpatient Encounter COMMUNITY CARE AM CONSULT IHE Encounter Template Text not used by [place] Plan of Treatment: Future Appointments (+ 6 months) and Future Tests (+/- 45 days) The Plan of Treatment section includes future care activities for the patient from all [place] treatmentfacilities. This section includes future appointments and future orders which are active, pending orscheduled.Future Appointments This section includes appointments that were scheduled to occur 6 months from the date of the Encounter, up to a maximum of 20 appointments. The data comes from all [place] treatment facilities. Appointment Date/Time Appointment Type Appointment Facili ty Name Aug 12, 2021 10:30 AM [facility] November 05, 2021 10:00 AM AMBULATORY - MEDICINE [facility] Advance Directives: All historical and current Section Date Range: From patient's date of to the date document was created. This section includes ALL of a patient's completed or amended [place] Advance and Rescinded Directives. The entries below indicate that a directive exists for the patient, but an actual copy is not included with this document. The data comes from all [place] facilities. Date Advance Directives Provider Source May 23, 2003 ADVANCE DIRECTIVE [facility]RE[facility]
--- OUTSIDE RECORDS SUMMARY | 2022-04-17 14:26 | XMS_ITS | Encounter Summary ---
:1940 Author Organization [facility] Address [address] [place] [id number] Support Name Relationship Address Phone SUZANNE SERRANO Unavailable [address] [place] [phone] SUZANNE SERRANO Unavailable [address] [place] [phone] Insurance Providers: All historical and current Section [...] MEDICARE MEDICARE PART Feb 06, PART A [id number] 800 Gonzalo SERRANO (WNR) (M) A 2002 [id number] [phone] LEONARD MEDICARE MEDICARE PART Feb 06, PART B [id number] 800 Gonzalo SERRANO (WNR) (M) B 2002 [id number] [phone] LEONARD MEDICARE MEDICARE RR Feb 06, RR PART [id number] MIK CHAND, PATIENT (WNR) (M) PART 2002 A [id number] SHERYL A MEDICARE MEDICARE RR Feb 06, RR PART [id number] [id number] MIK CHAND, PATIENT (WNR) (M) PART 2002 B [id number] 2 SHERYL B MEDICARE MEDICARE PART Jun 08, PART D [id number] LESLYE BAEZA, PATIENT PART D (M) D 2017 [id number] 5 SHERYL (WNR) [facility] MEDICARE MEDIC Jun 08 [id number] [phone] DANIEL SERRANO PACIFIC SUPPLEMEN ARE 2009 [id number] SHERYL PACK KAREN SUPPL EMENT UNION MEDICARE UPREH Jun 08 [id number] DELOR[address] SERRANO IMANI [facility] S 2009 [id number] SHERYL PACK (NO B EXC) Selected Encounter This section includes the information on record at [place] for the Encounter. Date/Time Encounter Type Encounter Description Reason Provider Source Mar 21, 2022 11:24 CASE MANAGEMENT ADMIN PAT ACTIVTIES JULIANE PONCE AM (MASNONCT) IHE Encounter Template Text not used by [place] Plan of Treatment: Future Appointments (+ 6 months) and Future Tests (+/- 45 days) The Plan of Treatment section includes future care activities for the patient from all [place] treatmentfacilities. This section includes future appointments and [...] the Encounter. The data comes from all [place] treatment facilities. Test Date/Time Test Type Test Details Facility Name Mar 31, 2022 07:47 AM Consult Order [facility] Cons Waistline Joiner Lockstitch's Choice Social History: Smoking Status (Most current) and Tobacco Use (All prior to encounter date) This section includes the most current, and the historical, smoking and tobacco-related health factors from the [place] facility where the Encounter took place.Current Smoking Status This section includes the most current smoking, or tobacco-related health factor, from the [place] facility where the Encounter took place. Date/Time Current Smoking Status Comment Facility November 05, 2021 10:00 AM [place]-TOBACCO QUIT 15 YRS OR MORE [facility] Tobacco Use History This section includes a history of the smoking, or tobacco- related health factors, that were collected on or before the date of the Encounter. The data comes from the [place] facility where the Encounter took place. Date/Time Smoking Status/Tobacco Use Comment [facility] it November 05, 2021 10:00 AM [place]-TOBACCO QUIT 15 YRS OR MORE [facility] Dec 10, 2018 12:57 PM VA-TOBACCO FORMER USER [facility] Dec 10, 2018 12:57 PM VA-TOBACCO QUIT 15 YRS OR MORE [facility] Feb 25, 2018 12:23 PM VA-TOBACCO FORMER USER [facility] Feb 25, 2018 12:23 PM VA-TOBACCO QUIT 15 YRS OR MORE [facility] Apr 10, 2015 02:55 PM FORMER TOBACCO USER 7Y OR GREATER [facility] Apr 27, 2014 10:17 AM FORMER TOBACCO USER 7Y OR GREATER [facility] Jun 18, 2006 07:23 AM FORMER TOBACCO USER 7Y OR GREATER [facility] Advance Directives: All historical and current Section Date Range: From patient's date of to the date document was created. This section includes ALL of a patient's completed or amended [place] Advance and Rescinded Directives. The entries below indicate that a directive exists for the patient, but an actual copy is not included with this document. The data comes from all [place] facilities. Date Advance Directives Provider Source May 23, 2003 ADVANCE DIRECTIVE KINGS ANDREW [facility] Encounter Notes: All associated encounter notes This section contains the clinical notes associated to the Encounter. Date/Time Encounter Note(s) Provider Source Mar 21, 2022 11:24 AM CLIENT PORTFOLIO MANAGER REFERRAL NOTE: JULIANE CHAUHAN [facility] LOCAL TITLE: TRAVELING PROGRESS NOTE STANDARD TITLE: CLIENT PORTFOLIO MANAGER REFERRAL NOTE DATE OF NOTE: MAR 21, 2022@11:24 ENTRY DATE: MAR 21, 2022@11:24:05 AUTHOR: JULIANE CHAUHAN EXP COSIGNER: URGENCY: STATUS: COMPLETED I spoke to this 's , [place] about the wetzel bmitted Traveling consult. I let her know though her number is lis fareed on demographic sheet, her name isn't. She notes they have filled o ut pw 5x and they still haven't gotten it updated. I told her to let the PCP nurse know to get her name on the demographic sheet since she takes care of scheduling all of her 's appts, she will call or use My [employer] Vet to send a me ssage. She was driving, so couldn't take down numbers, but understands cons ult process. She was appreciative of the assistan ce. I called back and LVM with my contact info, the eligibility dept number and the contact info for the [place] [facility]. /katey/ JULIANE CHAUHAN REGISTERED NURSE Signed: 03/21/2022 11:24
--- OUTSIDE RECORDS SUMMARY | 2022-04-17 14:26 | XMS_ITS | Encounter Summary ---
:1940 Author Organization [facility] Address [address] [place] [id number] Support Name Relationship Address Phone SUZANNE SERRANO Unavailable [address] [place] [phone] SUZANNE SERRANO Unavailable [address] [place] [phone] Insurance Providers: All historical and current Section [...] MEDICARE MEDICARE PART Feb 06, PART A [id number] 800 ALANNAHGonzalo GARCÍA (WNR) (M) A 2002 [id number] [id number] LEONARD MEDICARE MEDICARE PART Feb 06, PART B [id number] 800 Gonzalo SERRANO (WNR) (M) B 2002 [id number] [phone] LEONARD MEDICARE MEDICARE RR Feb 06, RR PART [id number] [id number] KADER LIK, PATIENT (WNR) (M) PART 2002 A [id number] SHERYL A MEDICARE MEDICARE RR Feb 06, RR PART [id number] KADER LIK, PATIENT (WNR) (M) PART 2002 B [id number] 2 SHERYL B MEDICARE MEDICARE PART Jun 08, PART D [id number] LESLYE BAEZA, PATIENT PART D (M) D 2017 [id number] 5 SHERYL (WNR) [facility] MEDICARE MEDIC Jun 08 [id number] [phone] DANIEL SERRANO [facility] ARE 2009 [id number] SHERYL CHRaumfeld KAREN SUPPL EMENT UNION MEDICARE UPREH Jun 08 [id number] DELORES SERRANO IMANI [facility] [facility] S 2009 [id number] SHERYL PACK (NO B EXC) Selected Encounter This section includes the information on record at [place] for the Encounter. Date/Time Encounter Type Encounter Description Reason Provider Source Mar 27, 2022 03:12 Outpatient Encounter CLINICAL PHARMACY PM IHE Encounter Template Text not used by [place] Plan of Treatment: Future Appointments (+ 6 months) and Future Tests (+/- 45 days) The Plan of Treatment section includes future care activities for the patient from all [place] [facility]. This section [...] the Encounter. The data comes from all [place] treatment facilities. Test Date/Time Test Type Test Details Facility Name Mar 31, 2022 07:47 AM Consult Order [facility] Cons Radiology Manager's Choice Social History: Smoking Status (Most current) [...] 2021 10:00 AM VA-TOBACCO FORMER USER [facility] Tobacco Use History This section includes a history of the smoking, or tobacco- related health factors, that were collected on or before the date of the Encounter. The data comes from the [place] facility where the Encounter took place. Date/Time Smoking Status/Tobacco Use Comment [facility] November 05, 2021 10:00 AM [place]-TOBACCO QUIT 15 YRS OR MORE [facility] Dec 10, 2018 12:57 PM [place]-TOBACCO FORMER USER [facility] Dec 10, 2018 12:57 PM VA-TOBACCO QUIT 15 YRS OR MORE [facility] Feb 25, 2018 12:23 PM [facility] Feb 25, 2018 12:23 PM VA-TOBACCO QUIT 15 YRS OR MORE [facility] Apr 10, 2015 02:55 PM FORMER TOBACCO USER 7Y OR GREATER [facility] Apr 27, 2014 10:17 AM FORMER TOBACCO USER 7Y OR GREATER [facility] Jun 18, 2006 07:23 AM FORMER TOBACCO USER 7Y OR GREATER [facility] Advance Directives: All historical and current [...] May 23, 2003 ADVANCE DIRECTIVE K[facility] ANDREW [facility] Encounter Notes: All associated encounter notes This section contains the clinical notes associated to the Encounter. Date/Time Encounter Note(s) Provider Source Mar 27, 2022 03:12 PM PHARMACY NOTE: CJ DUFFY [facility] LOCAL TITLE: PHARMACY PROGRESS NOTE STANDARD TITLE: PHARMACY NOTE DATE OF NOTE: MAR 27, 2022@15:12 ENTRY DATE: MAR 27, 2022@15:12:09 AUTHOR: CJ DUFFY EXP COSIGNER: URGENCY: STATUS: COMPLETED Patient and his present ed to outpatient pharmacy inquiring about picking up eye drops that his outside eye provider sent to us. The said that it was either Restasis or Xiidra. Being that these medi cations are restricted to eye providers, these medications cannot be comanaged . Project Manager/Design Manager explained to patient that either a community care-ophthalmology consu lt needs to be submitted and approved or he needs to see [facility] and they need to prescribe. Patient's opted for the community care cons ult, if patient is able to be approved for that. He sees a n cloth sponger Dr. Pia Vora at [facility]. Dr. Mathews, will you pleas e submit a community care- ophthalmology consult for review? Would you also pleas e call patient with questions and/or an update with the status of this? /katey/ CJ DUFFY pharmacist Signed: 03/27/2022 15:15 Receipt Acknowledged By: * AWAITING SIGNATURE * RODRÍGUEZ MATHEWS
--- OUTSIDE RECORDS SUMMARY | 2022-04-17 14:26 | XMS_ITS | Encounter Summary ---
:1940 Author Organization [facility] Address [address] [place] [address] Support Name Relationship Address Phone SUZANNE SERRANO Unavailable [address] [place] [phone] SUZANNE SERRANO Unavailable [address] [place] [phone] Insurance Providers: All historical and current Section [...] MEDICARE MEDICARE PART Feb 06, PART A [id number] 800 ALANNAHGonzalo GARCÍA (WNR) (M) A 2002 [id number] LEONARD MEDICARE MEDICARE PART Feb 06, PART B [id number] 800 Gonzalo SERRANO (WNR) (M) B 2002 [id number] LEONARD MEDICARE MEDICARE RR Feb 06, RR PART [id number] [phone] KADER LIK, PATIENT (WNR) (M) PART 2002 A [id number] SHERYL A MEDICARE MEDICARE RR Feb 06, RR PART [id number] KADER LIK, PATIENT (WNR) (M) PART 2002 B [id number] 2 LEONARD B MEDICARE MEDICARE PART Jun 08, PART D [id number] LESLYE BAEZA, PATIENT PART D (M) D 2017 [id number] 5 SHERYL (WNR) UNION MEDICARE MEDIC Jun 08, [id number] [phone] DANIEL SERRANO [facility] ARE 2009 [id number] SHERYL PACK KAREN SUPPL EMENT UNION MEDICARE UPREH Jun 08 [id number] [facility] [id number] SHERYL PACK (NO B EXC) Selected Encounter This section includes the information on record at [place] for the Encounter. Date/Time Encounter Type Encounter Description Reason Provider Source IHE Encounter Template Text not used by [facility] Advance Directives: All historical and current Section Date Range: From patient's date of to the date document was created. This section includes ALL of a patient's completed or amended [place] Advance and Rescinded Directives. The entries below indicate that a directive exists for the patient, but an actual copy is not included with this document. The data comes from all [place] facilities. Date Advance Directives Provider Source May 23, 2003 ADVANCE DIRECTIVE [facility]RE[facility]
--- OUTSIDE RECORDS SUMMARY | 2022-04-17 14:26 | XMS_ITS | Encounter Summary ---
:1940 Author Organization [facility] Address [address] [place] [address] Support Name Relationship Address Phone SUZANNE SERRANO Unavailable [address] [place] [phone] SUZANNE SERRANO Unavailable [address] [place] [phone] Insurance Providers: All historical and current Section [...] MEDICARE MEDICARE PART Feb 06, PART A [id number] 800 ALANNAHGonzalo GARCÍA (WNR) (M) A 2002 [id number] LEONARD MEDICARE MEDICARE PART Feb 06, PART B [id number] 800 Gonzalo SERRANO (WNR) (M) B 2002 [id number] LEONARD MEDICARE MEDICARE RR Feb 06, RR PART [id number] KADER LIK, PATIENT (WNR) (M) PART 2002 A [id number] SHERYL A MEDICARE MEDICARE RR Feb 06, RR PART [id number] KADER LIK, PATIENT (WNR) (M) PART 2002 B [id number] 2 SHERYL B MEDICARE MEDICARE PART Jun 08, PART D [id number] LESLYE BAEZA, PATIENT PART D (M) D 2017 [id number] 5 SHERYL (WN) UNION MEDICARE MEDIC Jun 08 [id number] [phone] DANIEL SERRANO [facility] ARE 2009 [id number] SHERYL PINEDAWaikoloa Steak [employer] KAREN SUPPL [place] MEDICARE UPREH Jun 08 [id number] DELORES SERRANO IMANI [facility] S 2009 [id number] SHERYL PACK (NO B EXC) Selected Encounter This section includes the information on record at [place] for the Encounter. Date/Time Encounter Type Encounter Description Reason Provider Source Mar 27, 2022 03:25 Outpatient Encounter COMMUNITY CARE PM CONSULT IHE Encounter Template Text not used by [place] Plan of Treatment: Future Appointments (+ 6 months) and Future Tests (+/- 45 days) The Plan of Treatment section includes future care activities for the patient from all [place] [facility]. This section includes future appointments and future [...] the Encounter. The data comes from all [place] treatment facilities. Test Date/Time Test Type Test Details Facility Name Mar 31, 2022 07:47 AM Consult Order [facility] Cons Screwdown Operator's Choice Social History: Smoking Status (Most current) and Tobacco Use (All prior to encounter date) This section includes the most current, and the historical, smoking and tobacco-related health factors from the [place] facility where the Encounter took place.Current Smoking Status This section includes the most current smoking, or tobacco-related health factor, from the [place] facility where the Encounter took place. Date/Time Current Smoking Status Comment Facility November 05, 2021 10:00 AM VA-TOBACCO FORMER USER [facility] Tobacco Use History This section includes a history of the smoking, or tobacco- related health factors, that were collected on or before the date of the Encounter. The data comes from the [place] facility where the Encounter took place. Date/Time Smoking Status/Tobacco Use Comment [facility] it November 05, 2021 10:00 AM ID-TOBACCO QUIT 15 YRS OR MORE [facility] Dec 10, 2018 12:57 PM ID-TOBACCO FORMER USER MIN [facility] Dec 10, 2018 12:57 PM VA-TOBACCO QUIT 15 YRS OR MORE [facility] Feb 25, 2018 12:23 PM VA-TOBACCO FORMER USER MIN [facility] Feb 25, 2018 12:23 PM [...] ALL of a patient's completed or amended [place] Advance and Rescinded Directives. The entries below indicate that a directive exists for the patient, but an actual copy is not included with this document. The data comes from all [place] facilities. Date Advance Directives Provider Source May 23, 2003 ADVANCE DIRECTIVE KINGS ANDREW [facility] Encounter Notes: All associated encounter notes This section contains the clinical notes associated to the Encounter. Date/Time Encounter Note(s) Provider Source Mar 27, 2022 03:25 PM PHARMACY NOTE: SUSHMA LEMA [facility] LOCAL TITLE: PHARMACY NON VA CARE MEDICATIONS STANDARD TITLE: PHARMACY NOTE DATE OF NOTE: MAR 27, 2022@15:25 ENTRY DATE: MAR 27, 2022@15:25:52 AUTHOR: SUSHMA LEMA EXP COSIGNER: URGENCY: STATUS: COMPLETED PHARMACY NON VA CARE MEDICATIONS Has ADDEND A [facility] Outpatient [facility] RECEIVED electron ic prescription(s) faxed from a NON-VA Provider: Pia Garza Regarding Patient: SHERYL SERRANO Date of : Feb Regarding PRESCRIPTION(s) written on Mar for: Medication: Restasis 0.05% eye drops Medication: The NON-VA provider is unauthorized to write pre scription(s) through the [facility] pharmacy. Prescription request REDIRE CTED via FAX to one of the following for review: [x][facility] (Dual) [facility] []Other: [] [facility] [] [facility] [] [facility] [] [facility] /katey/ SUSHMA LEMA Signed: 03/27/2022 15:26 03/28/2022 ADDENDUM STATUS: COMPLETED Restasis restricted to opt/ophth I will order anyway, and place consult to ophth for approval and/or community care consult for non VA eye clinic /es/ Urvashi Munguia MD Physician Signed: 03/28/2022 14:14 03/31/2022 ADDENDUM STATUS: COMPLETED [facility] consult order placed. /katey/ MANISH WHITESIDE MD RESIDENT Signed: 03/31/2022 07:48 Receipt Acknowledged By: * AWAITING SIGNATURE * ASHLEY SHANKAR
--- OUTSIDE RECORDS SUMMARY | 2022-04-17 14:27 | XMS_ITS | Encounter Summary ---
:1940 Author Organization [facility] Address [address] [place] [address] Support Name Relationship Address Phone SUZANNE SERRANO Unavailable [id number] [place] [phone] SUZANNE SERRANO Unavailable [address] [place] [id number] Insurance Providers: All historical and current Section [...] MEDICARE MEDICARE PART Feb 06, PART A [id number] Gonzalo SERRANO (WNR) (M) A 2002 [id number] [phone] LEONARD MEDICARE MEDICARE PART Feb 06, PART B [id number] Gonzalo SERRANO (WNR) (M) B 2002 [id number] [phone] [place]ARD MEDICARE MEDICARE RR Feb 06, RR PART [id number] [id number] MIK CHAND, PATIENT (WNR) (M) PART 2002 A [id number] SHERYL A MEDICARE MEDICARE RR Feb 06, RR PART [id number] [id number] MIK CHAND, PATIENT (WNR) (M) PART 2002 B [id number] SHERYL B MEDICARE MEDICARE PART Jun 08, PART D [id number] [id number] LESLYE BAEZA, PATIENT PART D (M) D 2017 [id number] SHERYL (WNR) [facility] MEDICARE MEDIC Jun 08 [id number] [phone] DANIEL SERRANO PACIFIC SUPPLEMEN ARE [id number] SHERYL PACK KAREN SUPPL EMENT UNION MEDICARE UPREH Jun 08 [id number] DELORES SERRANOMERLENE PACIFIC SECONDARY S [id number] SHERYL PACK (NO B EXC) Selected Encounter This section includes the information on record at [place] for the Encounter. Date/Time Encounter Type Encounter Reason Provider Source Description Apr 08, 2022 CASE MANAGEMENT ADMIN PAT ICD-10-CM Z71.9 JULIANE CHAUHAN 01:02 PM ACTIVTIES Counseling, (MASNONCT) unspecified with Provider Comments: Counseling, unspecified IHE Encounter Template Text not used by [place] Assessments - Encounter Diagnoses This section includes the primary and secondary diagnoses documented for the Encounter. Date/Time Primary/Secondary Diagnosis Name Provider Source Diagnosis Apr 16, 2022 PRIMARY Counseling, JULIANE CHAUHAN [facility] 09:[address] [facility] Plan of Treatment: Future Appointments (+ 6 months) and Future Tests (+/- 45 days) The Plan of Treatment section includes future care activities for the patient from all [place] treatmentfacilities. This section includes future appointments and [...] the Encounter. The data comes from all [place] treatment facilities. Test Date/Time Test Type Test Details Facility Name Mar 31, 2022 07:47 AM Consult Order [facility] Cons Metal Treater's Choice Social History: Smoking Status (Most current) and Tobacco Use (All prior to encounter date) This section includes the most current, and the historical, smoking and tobacco-related health factors from the [place] facility where the Encounter took place.Current Smoking Status This section includes the most current smoking, or tobacco-related health factor, from the [place] facility where the Encounter took place. Date/Time Current Smoking Status Comment Facility November 05, 2021 10:00 AM VA-TOBACCO FORMER USER [facility] Tobacco Use History This section includes a history of the smoking, or tobacco- related health factors, that were collected on or before the date of the Encounter. The data comes from the [place] facility where the Encounter took place. Date/Time Smoking Status/Tobacco Use Comment Facil ity November 05, 2021 10:00 AM VA-TOBACCO QUIT 15 YRS OR MORE [facility] Dec 10, 2018 12:57 PM VA-TOBACCO FORMER USER [facility] Dec 10, 2018 12:57 PM VA-TOBACCO QUIT 15 YRS OR MORE [facility] Feb 25, 2018 12:23 PM VA-TOBACCO FORMER USER [facility] Feb 25, 2018 12:23 PM VA-TOBACCO QUIT 15 YRS OR MORE [facility] Apr 10, 2015 02:55 PM FORMER TOBACCO USER 7Y OR GREATER [facility] Apr 27, 2014 10:17 AM FORMER TOBACCO USER 7Y OR GREATER [facility] Jun 18, 2006 07:23 AM FORMER TOBACCO USER 7Y OR GREATER [facility] Advance Directives: All historical and current Section Date Range: From patient's date of to the date document was created. This section includes ALL of a patient's completed or amended [place] Advance and Rescinded Directives. The entries below indicate that a directive exists for the patient, but an actual copy is not included with this document. The data comes from all [facility]. Date Advance Directives Provider Source May 23, 2003 ADVANCE DIRECTIVE KINGS ANDREW [facility] Encounter Notes: All associated encounter notes This section contains the clinical notes associated to the Encounter. Date/Time Encounter Note(s) Provider Source Apr 08, 2022 01:02 PM HEALTH PLAN MANAGER REFERRAL NOTE: JULIANE CHAUHAN [facility] LOCAL TITLE: TRAVELING PROGRESS NOTE STANDARD TITLE: HEALTH PLAN MANAGER REFERRAL NOTE DATE OF NOTE: APR 08, 2022@13:02 ENTRY DATE: APR 08, 2022@13:03:03 AUTHOR: JULIANE CHAUHAN EXP COSIGNER: URGENCY: STATUS: COMPLETED TRAVELING PROGRESS NOTE Has ADDENDA [facility] will not procee d w/ the request for bladder irrigations w/o orders for needed bladder irrigation. Please place curr ent bladder irrigation orders into the 03/20/22 consult. per [facility] staff; Unable to process without o rders. [facility] care-Urology dated Aug 06, 2021 contained specific orders for continuity of treatment. /katey/ JULIANE CHAUHAN REGISTERED NURSE Signed: 04/08/2022 13:06 Receipt Acknowledged By: 04/08/2022 13:08 /katey/ Urvashi Munguia MD Physician 04/08/2022 15:51 /katey/ DREA PARKER RN REGISTERED NURSE 04/08/2022 ADDENDUM STATUS: COMPLETED I do not know how to order b ladder irrigation. It is not something Primary Care typically manages. Talk to Urologist? /daljit Munguia MD Physician Signed: 04/08/2022 13:09 04/08/2022 ADDENDUM STATUS: COMPLETED [facility] [place] [facility] comment in Jul 2021 consult. Called this number requesting to be connected with the clinic who last saw him. Was re-directed three times; at one poin t, I was re directed to the [facility]'s RN station but th ere was no response and the still operator brandy then redirected me to the records department at [facility]. I have requested all urology clinic notes and records from the past three years rela fareed to bladder, cystitis, and any other urology related care, to be faxed to [facility] for review and uploading into patient's chart. /daljit PARKER RN REGISTERED NURSE Signed: 04/08/2022 15:51 04/09/2022 ADDENDUM STATUS: COMPLETED Received message from staff at [facility] requesting fax number (this was provided to them in my previous call). C alled the number they provided and was routed to their main call center. I left a keyon woods with the call center staff and asked the sending green party to fax this patient' s records to [phone] /daljit PARKER RN REGISTERED NURSE Signed: 04/09/2022 14:05 04/10/2022 ADDENDUM STATUS: COMPLETED Records received from [facility]. There was o nly one record from 2021, the rest were from 2020. Contact ed [facility] again to request all urology records, notably records related to cystitis and bladder irrigation from 2021. /daljit PARKER RN REGISTERED NURSE Signed: 04/10/2022 15:56
--- OUTSIDE RECORDS SUMMARY | 2022-04-17 14:27 | XMS_ITS ---
:1940 Author Organization [facility], [facility] DOCUMENT DISCLAIMER The information in the [facility] Continuity of Care Document represents a summary of certain health and medical information. It may not contain the complete medical history for the patient and should be independently verified. The represented time in the document is Eastern Time. 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 Active March 18, 2022 origin Encounter for immunization Z23 Active Mar Anemia, unspecified D64.9 Active December 16 022 End stage renal disease N18.6 Active October 02, 2021 ALLERGIES AND ADVERSE REACTIONS Substance Reaction Severity Status lisinopril Nausea/Vomiting Active lisinopril Unknown Active omeprazole Nausea/Vomiting Active Lipitor Unknown Active metoclopramide Unknown Active SOCIAL HISTORY Tobacco Use Status Tobacco Type Unknown if ever consumed tobacco - Caregiver Characteristics No Information Available Characteristics of Home environment No Information Available MEDICATIONS Prescribed Medications for Dialysis Treatments Medication Instructions Dosage Route Start Date End Date Statu s Heparin Bolus, Every 1999 Intravenous - October 07October 06, Active Sodium Treatment, units push 2021 2022 (Porcine) Total treatment 1,000 minutes 210 Units/mL Systemic Mircera Every 2 weeks 30 mcg Intravenous - April Active push 2021 Vitamin D Every 1.0 mcg Oral March Active (Calcitriol) Treatment 2021 Oral Iron Sucrose 1X Week 50 mg Intravenous - JanuaryJanuary 05, Discontinued (Venofer) push 2021 Vitamin D Every 0.75 mcg Oral January Disconti nued (Calcitriol) Treatment 2021 Oral Home Medications Medication Instructions Dosage Route Start Date End Statu s Date Milo Low Dose Take by mouth 1 tablet ORAL October 29, Active Aspirin 81 mg once a day 2020 Dialyvite Take by mouth 1 tablet ORAL October 29, Act herman [phone] once a day 2020 nf-tv-zed-mg isosorbide Take by mouth 06/09 ORAL February ctive mononitrate 20 once a day tablet 2021 mg Lantus U-100 Inject 18 unit SUBCUTANEOUS October 29, A ctive Insulin 100 subcutaneously 2020 unit/mL every evening Levo-T 175 mcg Take by mouth 1 tablet ORAL October 29, Active once a day 2020 Novolog Inject 5 unit SUBCUTANEOUS October 29, Activ e Flexpen U-100 subcutaneously 2020 Insulin 100 three times a day unit/mL (3 mL) with meals pravastatin 10 Take by mouth 1 tablet ORAL October 29, Active mg once a day 2020 Protonix 40 mg Take by mouth 1 tablet ORAL October 29, Active once a day 2020 Singulair 10 Take by mouth 1 tablet ORAL October 29, Active mg once a day 2020 Spiriva as directed once 1 puff INHALATION July 02, Active Respimat 2.5 a day 2021 mcg/actuation Wixela Inhub Inhale as 1 puff INHALATION July 02, Active 250-50 mcg/dose directed twice a 2021 day VITAL SIGNS Post-Treatment Vital Signs Vital Sign Value Date / Time Blood Pressure-sitting 138/31 mmHg April 16, 2022 10:51 AM Blood Pressure-standing 139/39 mmHg April 16 10:51 AM Heart Rate 75 beats per minute April 16, 2022 10 :51 AM Respiratory Rate 16 breaths per minute April 16, 2022 10:51 AM Temperature 97.0 deg. F April 16, 2022 10 :51 AM Weight Vital Sign Value Date / Time Pre-Dialysis 100.60 kg April 16, 2022 10 :51 AM Post-Dialysis 98.60 kg April 16, 2022 10 :51 AM Other Other Value Date / Time Height 183 cm October 02, 2021 12:00 AM HEALTH CONCERNS LAB RESULTS Hematology Result Type Result Value Relevant Reference Interpretation Date Range Hemoglobin x 3 31.2 % Male: 14.0 - 18.0 Low March 19, 2022 g/dL; Female: 12.0-16.0 g/dL HGB 10.4 g/dL Males: 14.0 - 18.0 Low March 082021 g/dL Females: 12.0 - 16.0 g/dL Hemoglobin x 3 29.7 % Male: 14.0 - 18.0 Low March 26, 2022 g/dL; Female: 12.0-16.0 g/dL HGB 9.9 g/dL Males: 14.0 - 18.0 Low March 082021 g/dL Females: 12.0 - 16.0 g/dL Hemoglobin x 3 30.0 % Male: 14.0 - 18.0 Low April 02, 2022 g/dL; Female: 12.0-16.0 g/dL HGB 10.0 g/dL Males: 14.0 - 18.0 Low March 092021 g/dL Females: 12.0 - 16.0 g/dL RBC 3.19 mill/mcL Males: 4.70 - 6.10 Low April 09, mill/mcL Females: 2021 4.20 - 5.40 mill/mcL WBC (No Diff) 5.44 1000/mcL 4.8-10.8 thous/mcL - 2021 Transferrin Sat. 50 % 20-55% - April 09 , (Calc) 2021 TIBC 238 mcg/dL 185-515 mcg/dL - April 09, 2022 Platelets 176 1000/mcL 999-512 4918/mcL - April UIBC (Calc) 120 mcg/dL 155-355 mcg/dL Low April 09, 2022 RDW 14.2 % No Reference range - April 09, provided 2021 Iron 118 mcg/dL Females: 30-160 - April 09, mcg/dL Males: 2021 45-160 mcg/dL MCHC 33.5 g/dL 30 - 36 g/dL - April 09, 2022 MCH 32.3 pg 27 - 31 pg/cell High April 09, 2022 HCT 30.7 % Males: 42 - 52% Low April 09, Females: 37 - 47% 2021 Hemoglobin x 3 30.9 % Male: 14.0 - 18.0 Low April 09, g/dL; Female: 2021 12.0-16.0 g/dL HGB 10.3 g/dL Males: 14.0 - 18.0 Low April 09, g/dL Females: 12.0 2021 - 16.0 g/dL HGB 9.9 g/dL Males: 14.0 - 18.0 Low April 16, g/dL Females: 12.0 2021 - 16.0 g/dL Hemoglobin x 3 29.7 % Male: 14.0 - 18.0 Low April 16, g/dL; Female: 2021 12.0-16.0 g/dL Metabolic/Renal Result Type Result Value Relevant Reference Interpretation Date Range Bicarbonate 25 mEq/L 22-29 mEq/L - April 09 Chloride 97 mEq/L 96-108 mEq/L - April 09 Potassium 4.4 mEq/L 3.5-5.1 mEq/L - April 09 Sodium 140 mEq/L 136-145 mEq/L - April 09 BUN/Creat Ratio 6.8 10- Low April 09, 2022 Creatinine, Serum 9.70 mg/dL 0.6-1.3 mg/dL High April 09, 2022 BUN 66 mg/dL 6-19 mg/dl High April 09 URR, Calc 76 % 65 - 80% - April 09 BUN, Post 16 mg/dL 6-19 mg/dL - April 09 HD Adequacy Result Type Result Value Relevant Reference Interpretation Date Range spKt/V (Daugirdas 1.65 No Reference range Normal [facility]2021 II) provided eKt/V 1.41 No Reference range Normal April 09, 2022 ([place]) provided Bone/Mineral Result Type Result Value Relevant Reference Interpretation Date Range Phosphorus 6.1 mg/dL 2.6-4.5 mg/dL High April 09 Calcium, Total 9.5 mg/dL 8.4-10.2 mg/dL - April Corrected Ca x P 57 < 55 High April Product Ca x P Product 58 < 55 High April 09, 2022 Liver/Nutrition Result Type Result Value Relevant Reference Interpretation Date Range A/G Ratio 1.3 1.0-2.0 - April 09 Globulin (Calc) 3.2 g/dL 1.0 - 2.0 - April 09, 2022 Albumin (BCG) 4.2 g/dL 3.5-5.2 g/dL - April 09 Total Protein 7.4 g/dL 6.0-8.5 g/dL - April 09 Infectious Diseases Result Type Result Value Relevant Reference Interpretation Date Range HCV Ab (anti-HCV) Nonreactive Non-Reactive - June Hep B core Ab Negative Negative - October 07, 2021 Total (anti-HBc) Hep B Surface Ab 114 mIU/mL < 10 mIU/mL, Non- - Novemb 2021 (anti-HBs) Immune Hep B Surface Ag Negative Negative - April (HBsAg) DIALYSIS PRESCRIPTION Conventional Hemodialysis Data Element Value Order Date/Time April 11, 2022 Frequency 3X Week Treatment Days MonWedFri Dialyzer 180NRe Optiflux Treatment Time (Total Minutes) 210 min Blood Flow Rate (mL/min) 450 mL/min Dialysate Flow Rate Manual 500 Estimated Dry Weight 98.5 kg Dialysate Concentrate 3.0 K, 2.5 Ca, 1.0 Mg, 100 D extrose (G3251) Sodium (mEq/L) 137 mEq/L Bicarb Machine Setting (mEq/L) 35 mEq/L Dialysis Access Hemodialysis-AV Fistula-Eagle dard, Left Forearm, Other/Unknown Arterial Needle Size 15g1 Venous Needle Size 15g1 IMMUNIZATIONS Vaccine Date Dose Route Status Bright!Tax March 17, 2022 0.3 mL Intramuscular Com pleted COVID-19 Vaccine, Bivalent, Booster FLUZONE High-Dose March 14, 2022 0.7 mL Intramuscular C ompleted Quadrivalent HEPLISAV-B, series 4 of March 25, 2021 20.0 mcg Intramuscu lar Completed 4 HEPLISAV-B, series 3 of January 28, 2021 20.0 mcg Intramuscul ar Completed 4 HEPLISAV-B, series 2 of December 31, 2020 20.0 mcg Intramuscular Completed 4 HEPLISAV-B, series 1 of November 26, 2020 20.0 mcg Intramuscular Completed 4 TRANSPLANT WAITLIST STATUS No Information on Transplant Waitlist Status ADVANCE DIRECTIVES Directive Description Ordered By Effective Date Resuscitation status Do Not Resuscitate (DNR) Darren Youssef Ma y 2021 DIALYSIS TREATMENTS Conventional Hemodialysis Date Pre-Treatment Post-Treatment Duration BFR Dialysate Dialyzer Dialysis Meds Vitals Vitals (hr) (mL/min) Access Admin April Weight 100.00 Weight 98.70 03:30:00 400 3.0 K, 180nre Hemodi alysis-AV Fistula-Standard, Left Forearm, Other/Unknown Heparin Sodium (Porcine) 1,000 Units/mL Systemic; 2000units,Intravenous - push 2021 kg kg 2.5 Ca, Optiflux Mircer a; 30mcg,Intravenous - push 1.0 Mg, Vitamin D (C alcitriol) Oral; 1.0mcg,Oral 100 Dextrose (G3251) Blood Pressure-sitting 103/55 mmHg Blood Pressure-sitting 14 5/75 mmHg Heart Rate 84 beats per Blood Pressure-standing 115/73 m mHg minute Respiratory Rate 18 breaths per Heart Rate 80 beats per minute minute Temperature 97.9 deg. F Respiratory Rate 20 breaths per minute - - Temperature 97.0 deg. F April Weight 101.80 Weight 98.20 03:31:00 450 3.0 K, 180nre Hemodi alysis-AV Fistula-Standard, Left Forearm, Other/Unknown Heparin Sodium (Porcine) 1,000 Units/mL Systemic; 1999units,Intravenous - push 2021 kg kg 2.5 Ca, Optiflux Vitami n D (Calcitriol) Oral; 1.0mcg,Oral 1.0 Mg, 100 Dextrose (G3251) Blood Pressure-sitting 138/68 mmHg Blood Pressure-sitting 11 8/60 mmHg Heart Rate 86 beats per Blood Pressure-standing 102/52 m mHg minute Respiratory Rate 16 breaths per Heart Rate 64 beats per minute minute Temperature 98.2 deg. F Respiratory Rate 16 breaths per minute - - Temperature 98.4 deg. F April Weight 100.60 Weight 98.60 03:32:00 450 3.0 K, 180nre Hemodi alysis-AV Fistula-Standard, Left Forearm, Other/Unknown Heparin Sodium (Porcine) 1,000 Units/mL Systemic; 1999units,Intravenous - push 2021 kg kg 2.5 Ca, Optiflux Vitami n D (Calcitriol) Oral; 1.0mcg,Oral 1.0 Mg, 100 Dextrose (G3251) Blood Pressure-sitting 105/51 mmHg Blood Pressure-sitting 13 8/31 mmHg Heart Rate 90 beats per Blood Pressure-standing 139/39 m mHg minute Respiratory Rate 18 breaths per Heart Rate 75 beats per minute minute Temperature 98.8 deg. F Respiratory Rate 16 breaths per minute - - Temperature 97.0 deg. F
--- OUTSIDE RECORDS SUMMARY | 2022-04-17 14:27 | XMS_ITS | Encounter Summary ---
:1940 Author Organization [facility] Address [address] [place] [id number] Support Name Relationship Address Phone SUZANNE SERRANO Unavailable [address] [place] [phone] SUZANNE SERRANO Unavailable [address] [place] [phone] Insurance Providers: All historical and current Section [...] MEDICARE MEDICARE PART Feb 06, PART A [id number] ALANNAHGonzalo GARCÍA (WNR) (M) A 2002 [id number] [phone] LEONARD MEDICARE MEDICARE PART Feb 06, PART B [id number] 800 Gonzalo SERRANO (WNR) (M) B 2002 [id number] [phone] [place]ONARD MEDICARE MEDICARE RR Feb 06, RR PART [id number] KAWILMER LIK, PATIENT (WNR) (M) PART 2002 A [id number] SHERYL A MEDICARE MEDICARE RR Feb 06, RR PART [id number] KADER LIK, PATIENT (WNR) (M) PART 2002 B [id number] SHERYL B MEDICARE MEDICARE PART Jun 08, PART D [id number] LESLYE BAEZA, PATIENT PART D (M) D 2017 [id number] SHERYL (WNR) [facility]ION MEDICARE MEDIC Jun 08 [id number] [phone] DANIEL SERRANO [facility] 2009 [id number] SHERYL [place] KAREN SUPPL EMENT UNION MEDICARE UPREH Jun 08 [id number] DELORES SERRANO IMANI [place] SEC[facility] S 2009 [id number] SHERYL PACK (NO B EXC) Selected Encounter This section includes the information on record at [place] for the Encounter. Date/Time Encounter Type Encounter Description Reason Provider Source Apr 10, 2022 04:38 Outpatient Encounter TELEPHONE TRIAGE PM IHE Encounter Template Text not used by [place] Plan of Treatment: Future Appointments (+ 6 months) and Future Tests (+/- 45 days) The Plan of Treatment section includes [facility] care [facility] for the [facility] [place] [facility] This section includes future appointments [...] the Encounter. The data comes from all [place] treatment facilities. 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 Date/Time Current Smoking Status Comment Facility November 05, 2021 10:00 AM VA-TOBACCO FORMER USER [facility] Tobacco Use History This section includes a history of the smoking, or tobacco- related health factors, that were collected on or before the date of the Encounter. The data comes from the [place] facility where the Encounter took place. Date/Time Smoking Status/Tobacco Use Comment [facility] November 05, 2021 10:00 AM IA-TOBACCO QUIT 15 YRS OR MORE [facility] Dec 10, 2018 12:57 PM IA-TOBACCO FORMER USER [facility] Dec 10, 2018 12:57 PM VA-TOBACCO QUIT 15 YRS OR MORE [facility] Feb 25, 2018 12:23 PM [facility] Feb 25, 2018 12:23 PM VA-TOBACCO QUIT 15 YRS OR MORE [facility] Apr 10, 2015 02:55 PM FORMER TOBACCO USER 7Y OR GREATER [facility] Apr 27, 2014 10:17 AM FORMER TOBACCO USER 7Y OR GREATER [facility] Jun 18, 2006 07:23 AM FORMER TOBACCO USER 7Y OR GREATER [facility] Advance Directives: All historical and current Section Date Range: From patient's date of to the date document was created. This section includes ALL of a patient's completed or amended [place] Advance and Rescinded Directives. The entries below indicate that a directive exists for the patient, but an actual copy is not included with this document. The data comes from all [place] facilities. Date Advance Directives Provider Source May 23, 2003 ADVANCE DIRECTIVE KINGS ANDREW [facility] Encounter Notes: All associated encounter notes This section contains the clinical notes associated to the Encounter. Date/Time Encounter Note(s) Provider Source Apr 10, 2022 04:39 PM REPORT OF CONTACT: MARY MAN [facility] LOCAL TITLE: PATIENT CONTACT NOTE STANDARD TITLE: REPORT OF CONTACT DATE OF NOTE: APR 10, 2022@16:39 ENTRY DATE: APR 10, 2022@16:39:04 AUTHOR: MARY MAN EXP COSIGNER: URGENCY: STATUS: COMPLETED PATIENT CONTACT NOTE Has ADDENDA Primary Care Call Center Phone number verified as correct. Noted: Yocasta called from [facility] [phone] stat ing pt.'s records is over 100 pages. Yocasta would like a call back concerning fa saul over 100+ pages/records. /katey/ MARY DOSS [facility] Signed: 04/10/2022 16:41 Receipt Acknowledged By: 04/11/2022 09:12 /katey/ DREA PARKER RN REGISTERED NURSE 04/11/2022 ADDENDUM STATUS: COMPLETED Called [facility] dept. Specified that the records can be narrowed down to records regarding bladder irrigation orders and urolog ist notes, specifically from Drs. Lester and Marissa, as these names appear in the other records. [facility] staff verbalized understanding and wi ll re-review. /katey/ DREA PARKER RN REGISTERED NURSE Signed: 04/11/2022 09:12
--- OUTSIDE RECORDS SUMMARY | 2022-04-17 14:28 | XMS_ITS | Encounter Summary ---
:1940 Author Organization [facility] Address [address] [place] [address] Care Team Providers Name Role Phone Unavailable Primary Care Provider Unavailable Encounter Details Date Type Department Care Team Description 04/16/2022 Orders Only [facility] O f Darren Escalante MD [phone] [place] [address] [place], [place] [phone] (Wo rk) Social History Tobacco Use Types Packs/Day Years Used Date Smoking Tobacco: Never Assessed Sex Assigned at Date Recorded Not on file documented as of this encounter Plan of Treatment Not on filedocumented as of this encounter Procedures Procedure Name Priority Date/Time Associated Diagnosis Comme nts HEMATOLOGY Routine 04/16/2022 Results for thi s procedure are in the resu lts section. documented in this encounter Results (ABNORMAL) HEMATOLOGY (04/16/2022) Analysis Performed At Patho logist Time Signature Hemoglobin 9.9 (L) 14.0 - [facility] 18.0 g/dL [facility] Hemoglobin x 3 29.7 (L) 42.0 - [facility] 54.0 % [facility] Specimen (Source) Anatomical Collection Method Collection Time Re ceived Time Location / / Volume Laterality 04/16/2022 04/17/2022 4:50 AM ASSOCIATE ATTORNEY Narrative [facility] - 04/17/2022 Unless otherwise specified, test(s) performed at: [facility], [address] [place] [address], [place] [address] FOAM RUBBER CURER: Rojas Kirkland M.D., Ph.D For any questions, please call customer service at FREQUENCY:OTHER Resulting Agency Comment Specimen source: Blood Darren Youssef MD LAB BLOOD ORDERABLES Performing Organization Address City/State/ZIP Code Phon e Number [facility] documented in this encounter Visit Diagnoses Not on filedocumented in this encounter
--- OUTSIDE RECORDS SUMMARY | 2022-04-17 14:28 | XMS_ITS | Encounter Summary ---
:1940 Author Organization [facility] Address [address] [place] [address] Care Team Providers Name Role Phone Unavailable Primary Care Provider Unavailable Encounter Details Date Type Department Care Team Description 03/26/2022 Treatment [facility] Darren Singh MD [address] [place] [address] [place], [place] [phone] (Wo rk) Social History Tobacco Use Types Packs/Day Years Used Date Smoking Tobacco: Never Assessed Sex Assigned at Date Recorded Not on file documented as of this encounter Miscellaneous Notes Dialysis Note - Darren Youssef MD - 03/26/2022 1:06 PM CDT Date: Mar 26, 2022 Patient Name: Korey Mackay : 1940 Chart #: [id number] Sex: M This patient was personally seen for a basic visit as part of routine weekly dialysis care. A reviewof the dialysis treatment, blood pressure, estimated dry weight and recent lab values was made. These were discussed with the patient and staff as necessary. Treatment Data for 03/26/2022 started at:10:49 AM Dialyzer: 180NRe Optiflux Na: 137 mEq/L Bicarb: 35 mEq/L Dialysate: 3.0 K, 2.5 Ca, 1.0 Mg, 100 Dextrose (G3251) Dialysate/Machine Temp (prescribed): 37 C Dialysate/Machine Temp (actual): 36.9 C BFR (prescribed): 500 BFR (actual): n/a Prescribed time: 03:30 EDW: 98.5 kg Access Type: Active (In Use):AVFistula-Standard/Left Forearm Pre Dialysis Vitals (for 03/26/2022 10:45 AM ) Pre BP (sit): 121/58 Pre Wt: 106.9 kg Temp: 98.4 F Post Dialysis Vitals (for 03/24/2022 2:34 PM ) Post BP (sit): 124/65 Post Wt: 103.6 kg Current Dialysis Vitals (for 03/26/2022 12:04 PM ) BP (sit): 103/43 AP(-) / 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 Pulse: 70 Chairside data as of 03/26/2022 12:04 PM Last 3 Treatments 03/24/2022 03/21/2022 03/19/2022 EDW (kg) 98.5 98.5 98.5 Weight Pre (kg) 105.6 103.3 105.4 Weight Post (kg) 103.6 100.2 102.4 Dialytic Weight Loss (kg) -2 -3.1 -3 EDW Deviation (kg) 5.1 1.7 3.9 BP Sit Pre 130/64 135/65 130/62 BP Sit Post 124/65 124/58 114/57 UF Rate (mL/kg/hr) 6 9 9 Prescribed BFR 500 500 500 Average Delivered BFR 500 460 500 Prescribed Treatment Time 03:30 03:30 03:30 Actual Treatment Time 03:29 03:30 03:30 Last 3 Values 03/21/2022 11/15/2021 09/07/2021 Access Flow [id number] Treatment Medication Orders Medication Sig Start Date End Date Heparin Sodium (Porcine) 1,000 Units/mL Systemic 2000 units IVP Every Treatment 10/07/2021 10/06/2022 Vitamin D (Calcitriol) Oral 1.0 mcg ORAL Every Treatment 03/19/2022 03/18/2023 PLACEMENT OFFICER: Darren Youssef MD LOCATION: [phone] SCHEDULE: -- 2nd Shift ACCESS: EDW: kg. DIALYZER: HD DURATION: NEEDLE SIZE: ANTICOAG: BATH: QB: ml/min QD: ml/min Subjective Tolerating dialysis well. 03/26/22: HE has no new symptoms or concerns. He is going to [place] tomorrow for repeat procedure for dentures on lower jaw. Hasn't tried Sarna lotion yet for mild itching and dry skin. 03/19/22: He is doing well on dialysis, tolerating treatments well. His fluid gains are too high, however, and he is above dry weight and will not achieve dry weight today as UFR would be too high withhis cardiac disease to UF his available weight. BP is adequate today. He has no cramps. He does not feel SOB or have dyspnea or orthopnea or chest pain. 02/26: Stable treatments. BP adequate today. 02/19/22: Feels well, no concerns with dialysis recently. Denies cramping. Fluid gains are too high, says he has been drinking more iced tea and water and coffee recently. 01/29/22: He asks about monitoring his blood sugars here, discussed importance of monitoring this at home while on insulin and that we don't routinely measure blood sugar with each treatment. He is upset at how much dialysis costs, as usual, and focuses on this despite attempts to re-direct. But dialysis continues to go well with stable BP and dry weight and overall excellent labs and he says he has no concerns with the treatments. 01/01: Had big [employer]ap[employer] republican for his , went well. He feels well. Got dentures fixed in [place], working better. No CP, SOB, edema. 12/18/21: Anxious to get bottom dentures fixed, going to [place] this month for this for expertise there. No dyspnea or orthopnea. Not getting to EDW, likely gained some weight as no edema either. 12/04/21: Doing well overall, stable dialysis, BP controlled, above dry weight on Thursday but should get to EDW today. Dentures on bottom don't fit right, delay in re-fitting as his dentist has COVID. HEdenies CP, SOB, edema, muscle cramps, nausea. 11/13/21: Got dentures on top but they are loose and he has to go back, making it hard to eat outside soft foods that he doesn't need to chew. Access working well. HE feels overall well. Labs overall excellent. He denies CP, SOB, edema, cramps. 10/30/21: Korey is back from [place] for the summer. He says things went well there. He has no concerns today, feels things are going well, not using clamps on access anymore and less bruising and access working well. He denies CP, SOB, edema. 05/22/21: He is upset about lack of good times at HD unit in [place]. No new symptoms. Feels well today otherwise. Should get at or very close to dry weight today. Labs reviewed with him, overall excellent. 04/24/21: Many complaints today, brings up his bad experience at [facility] again, concerned about new person doing his needles here, thinks they are doing cath once weekly at Urology for money and that he doesn't need it, etc. Took quite some time to talk him down, discuss all issues, answer questions. By end, he was jovial and said things were going well here at the HD center. [place]. 04/10/21: Doing well, cough nearly resolved, no SOB, has appt for straight cath today. Dialysis goingwell. 04/03/21: He is doing much better. Off O2. Getting up stairs now without dyspnea. Spoke with , she confirms he is doing much better. Back on his usual renal and diabetic diet to get BS's controlledagain. No concerns today. May need EDW adjustment, but does have some edema. 03/20/21: Recovered from COVID, off O2, out of rehab, back at home with . Dialysis going well. He hated rehab, very happy to be home. 01/30: No new symptoms, not urinating on his own and thus going in for appt at Urology to get straight cath. He is making only small amount of urine. Labs reviewed with him, overall excellent. BP adequate and he is reaching EDW. Monitoring bleeding from access as he had increased bleeding time last week once but may have been issue with the clamps. 01/09/21: No new symptoms, HD going well, had straight cath with Urologist and went well and has another appt set up for repeat. 12/26/20: He reports feeling ok, tolerating dialysis well without issue and overall labs are stable. RN says dialysis going well. HE had becerril taken out, says Urologist in [place] told him to have nurses at dialysis do straight cath three times a week but we did not hear anything about this and we are not equipped to do this so I will investigate this further. He reports making no urine since becerril was out - he was making very little when catheter was in but it was not zero. He thinks his could betaught to do this periodically but he doesn't feel he could do this. 12/12/20: No new symptoms, tolerating HD well. Still has becerril bag, no blood in bag last few days, TOVplanned next week at Urology he says. 11/28: Doing well, no issues here with dialysis or his access and feels things are much smoother herethan previous unit. He has no concerns. He has becerril catheter until follow-up next month with Urology in [place]. Still with hematuria but low UOP he reports (70 mL this am from overnight). Hgb slow to improve in setting of infection. 11/07/20: Notes below from Dr. Sky. I am meeting patient today for first time. He transferred from [facility] - he was unhappy with staff there and was having bleeding from fistula. He started here in the last couple of weeks and is really liking it so far, things have been going very well with his dialysis. He gets to EDW, adequacy borderline but ok, BP adequate, no cramps with treatments. He generally feels well, denies CP or SOB or edema. Only ongoing concern is recurrent gross hematuria. He had work-up for this in the past. This started mid October, had clots of blood and thick urine and he only makes small amount of urine. He was seen in ER on 10/15, had CT Urogram without anything on imagesto explain hematuria. He had catheter placed, which remains in place. He is completing abx, althoughthe culture that I see in the [facility] system at least had no growth. He has follow-up with Urology this week. He has hx of CABG with CAD, no current symptoms of angina. 03/28: Feels well overlal but having cramp today . He also notes that recently he had gross blood from his urethra, mixed with urine. He had mild discomfort when he urinated that day and he had some right flank discomfort at the time. He has had no blood since. since. He will need urologic work up. Will plan to refer him to Dr. Meneses. 04/09/20 Feels well. No sob eating well. Will go to [place] soon for the winter. 04/30/20. Pt feels well, denies sob, eating wlll, no new complaints. He decided against urology onsult for his gross hematuria. going to [place] on Thursday. Will show up there Thursday. 09/24/20 No new complaints at this time, Just back from [place]. Says he didn't get as many cramps in [place] Dry weight is a bit higher than last fall. Denies chest pain, sob. Appetite is ok. 10/01/20 Feeling ok now but says he had acid over the week end . Says he had reflux symptoms over the week end. Last week he says he coughed up some blood on dialysis once. Denies sob or chest pain. Says he has been eating ok. 10/08/20 Feels good. Had hemoptysis two weeks ago. He has not had recurrence. I did a cxr and saw no acute problems. Feels ok today. Denies sob. Advanced Practitioner Subjective: Review of Systems None reported. 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 He now has two homes, one in [place] and one in [place]. He and his winter in [place]. They have one daughter that lives in [place], [place] and they have one son (who's had drug problems). Exam Respiratory - nl effort Cardiovascular Regular rate. Edema - 1+ leg edema. Access - LUE AVF with small aneurysms Medication List Medication Sig Start Date Milo Low Dose Aspirin (aspirin) 81 mg tablet,delayed release (DR/EC) Take 1 tablet by mouth once a day Dialyvite (b complex 53-uczcj-l-biot-zinc) [phone] ki-hs-zez-mg tablet Take 1 tablet by mouth once a day isosorbide mononitrate 20 mg tablet Take 1/2 tablet by mouth once a day 02/27/2022 Lantus U-100 Insulin (insulin glargine) 100 unit/mL solution Inject 18 unit subcutaneously every evening Levo-T (levothyroxine) 175 mcg tablet Take 1 tablet by mouth once a day Novolog Flexpen U-100 Insulin (insulin aspart u-100) 100 unit/mL (3 mL) insulin pen Inject 5 unit subcutaneously three times a day with meals pravastatin 10 mg tablet Take 1 tablet by mouth once a day Protonix (pantoprazole) 40 mg tablet,delayed release (DR/EC) Take 1 tablet by mouth once a day Singulair (montelukast) 10 mg tablet Take 1 tablet by mouth once a day Spiriva Respimat (tiotropium bromide) 2.5 mcg/actuation mist 1 puff as directed once a day Wixela Inhub (fluticasone propion-salmeterol) 250-50 mcg/dose blister with device Inhale 1 puff as directed twice a day Allergy List Allergen Reaction Reaction Severity Onset Date Lipitor Unknown lisinopril Unknown metoclopramide Unknown omeprazole Nausea/Vomiting Medications reviewed and no changes were made. BUN mg/dL 54 (03/12/22) 45 (02/12/22) 58 (01/08/22) 68 (12/11/21) 66 (11/06/21) UREA NITROGEN (MG/DL) IN SER/PLAS - POST DIALYSIS mg/dL 17 (03/12/22) 12 (02/12/22) 16 (01/08/22) 18 (12/11/21) 18 (11/06/21) URR % 69 (03/12/22) 73 (02/12/22) 72 (01/08/22) 74 (12/11/21) 73 (11/06/21) spKt/V Gotch 1.46 (03/12/22) 1.67 (02/12/22) 1.53 (01/08/22) 1.65 (12/11/21) 1.53 (11/06/21) eKdrt/V 1.24 (03/12/22) 1.41 (02/12/22) 1.3 (01/08/22) 1.39 (12/11/21) 1.3 (11/06/21) spKt/V (Daugirdas II) 1.3900 (03/12/22) 1.5700 (02/12/22) 1.4800 (01/08/22) 1.5700 (12/11/21) 1.4900 (11/06/21) HEMOGLOBIN (G/DL) IN BLOOD g/dL 10.4 (03/19/22) 10.7 (03/12/22) 11.7 (03/05/22) 11.0 (02/26/22) 10.4 (02/19/22) PLATELETS 1000/mcL 102 (03/12/22) 131 (02/12/22) 125 (01/08/22) 107 (12/11/21) 140 (11/06/21) IRON SATURATION % 45 (11/06/21) 53 (10/07/21) 25 (05/08/21) 34 (04/10/21) 45 (03/13/21) FERRITIN ng/mL 965 (03/12/22) 620 (12/11/21) 715 (11/20/21) 753 (10/07/21) 761 (03/13/21) ALBUMIN (G/DL) g/dL 3.8 (03/12/22) 3.8 (02/12/22) 4.0 (01/08/22) Sodium mEq/L 140 (03/12/22) 140 (02/12/22) 137 (01/08/22) POTASSIUM (MMOL/L) IN SER/PLAS mEq/L 5.3 (03/12/22) 4.1 (02/12/22) 3.8 (01/08/22) BICARBONATE (CO2) mEq/L 24 (03/12/22) 28 (02/12/22) 28 (01/08/22) 25 OH VITAMIN D ng/mL 71.8 (12/12/20) 62.5 (10/29/20) BUN/CREATININE (MASS RATIO) IN SER/PLAS 6.0 (03/12/22) 5.2 (02/12/22) 6.2 (01/08/22) CALCIUM mg/dL 9.1 (03/12/22) 8.9 (02/12/22) 8.9 (01/08/22) Calcium Phos Product 35 (03/12/22) 33 (02/12/22) 46 (01/08/22) CALCIUM (MG/DL) CORRECTED FOR ALBUMIN IN SER/PLAS mg/dL 9.3 (03/12/22) 9.1 (02/12/22) 8.9 (01/08/22) PHOSPHATE (MG/DL) IN SER/PLAS mg/dL 3.8 (03/12/22) 3.7 (02/12/22) 5.2 (01/08/22) IPTH pg/mL 400 (03/12/22) 329 (02/12/22) 460 (01/08/22) Vascular Access Assessment: Type of access: Fistula Surgeon - [place] Staff and patient report access is working well. Impression and Plan Stable on dialysis, no changes to prescription Needs to lower fluid and salt in diet, despite discussing last week he had large meal at [facility] night. Darren Youssef MD [ Signed And locked electronically On 03/26/2022 at 01:08:07 PM ] Transcribed: Darren Youssef ( 03/26/2022 ) documented in this encounter Plan of Treatment Not on filedocumented as of this encounter Visit Diagnoses Not on filedocumented in this encounter
--- OUTSIDE RECORDS SUMMARY | 2022-04-17 14:28 | XMS_ITS | Encounter Summary ---
:1940 Author Organization [facility] Address [address] [place] [address] Care Team Providers Name Role Phone Unavailable Primary Care Provider Unavailable Encounter Details Date Type Department Care Team Description 02/19/2022 Orders Only [facility] O f Darren Escalante MD [phone] [place] [address] [place], [place] [phone] (Wo rk) Social History Tobacco Use Types Packs/Day Years Used Date Smoking Tobacco: Never Assessed Sex Assigned at Date Recorded Not on file documented as of this encounter Plan of Treatment Not on filedocumented as of this encounter Procedures Procedure Name Priority Date/Time Associated Diagnosis Comme nts HEMATOLOGY Routine 02/19/2022 Results for thi s procedure are in the resu lts section. documented in this encounter Results (ABNORMAL) HEMATOLOGY (02/19/2022) Analysis Performed At Patho logist Time Signature Hemoglobin 10.4 (L) 14.0 - [facility] 18.0 g/dL [facility] Hemoglobin x 3 31.2 (L) 42.0 - [facility] 54.0 % [facility] Specimen (Source) Anatomical Collection Method Collection Time Re ceived Time Location / / Volume Laterality 02/19/2022 02/20/2022 3:00 PM CDT Narrative [facility] - 02/20/2022 Unless otherwise specified, test(s) performed at: [facility], [address] [place] [address], [place] [address] GLASS INSTALLER: Rojas Kirkland M.D., Ph.D For any questions, please call customer service at FREQUENCY:OTHER Resulting Agency Comment Specimen source: Blood Darren Youssef MD LAB BLOOD ORDERABLES Performing Organization Address City/State/ZIP Code Phon e Number [facility] documented in this encounter Visit Diagnoses Not on filedocumented in this encounter
--- OUTSIDE RECORDS SUMMARY | 2022-04-17 14:28 | XMS_ITS | Encounter Summary ---
:1940 Author Organization [facility] Address [address] [place] [address] Care Team Providers Name Role Phone Unavailable Primary Care Provider Unavailable Encounter Details Date Type Department Care Team Description 01/08/2022 Orders Only [facility] Darren Escalante MD [phone] [place] [address] [place], [place] [phone] (Wo rk) Social History Tobacco Use Types Packs/Day Years Used Date Smoking Tobacco: Never Assessed Sex Assigned at Date Recorded Not on file documented as of this encounter Plan of Treatment Not on filedocumented as of this encounter Procedures Procedure Name Priority Date/Time Associated Diagnosis Comme nts HD KINETICS Routine 01/08/2022 Results for thi s procedure are i n the results section . POST CHEMISTRY Routine 01/08/2022 Results for t his procedure are i n the results section . IMMUNO CHEMISTRY Routine 01/08/2022 Results for this procedure are i n the results section . HEMATOLOGY Routine 01/08/2022 Results for thi s procedure are i n the results section . CHEMISTRY Routine 01/08/2022 Results for thi s procedure are i n the results section . CHEMISTRY Routine 01/08/2022 Results for thi s procedure are i n the results section . SPECTRA [place] [facility] RESULTS Routine 01/08/2022 Resul ts for this procedure are i n the results section . documented in this encounter Results Spectra [place] [facility] Results (01/08/2022) P athologist Signature eKt/V Gotch 1.30 [place] nPCR_HD 1.02 [place] eKdrt/V 1.30 [place] spKt/V 1.48 [place] ([place]) spKt/V Gotch 1.53 [place] eNPCR 0.95 [place] eKt/V 1.27 [place] ([place]) PCR 68.20 [place] Specimen (Source) Anatomical Location Collection Method / Collectio n Time Received Time / Laterality Volume 01/08/2022 01/08/2022 [place] Ordering Provider LAB BLOOD ORDERABLES Performing Organization Address City/[facility]/ZIP Code Phon e Number [place] HD KINETICS (01/08/2022) athologist Signature % Urea 72 65 - 80 % [facility] SPECTRA Reduction [facility] Specimen (Source) Anatomical Collection Method Collection Time Re ceived Time Location / / Volume Laterality 01/08/2022 01/09/2022 5:59 AM CDT Resulting Agency Comment Specimen source: Plasma Darren Youssef MD LAB BLOOD ORDERABLES Performing Organization Address City/[facility]/ZIP Code Phon e Number [facility]RA [facility] POST CHEMISTRY (01/08/2022) athologist Signature BUN Post 16 6 - 19 [facility] Dialysis mg/dL [facility] Specimen (Source) Anatomical Collection Method Collection Time Re ceived Time Location / / Volume Laterality 01/08/2022 01/09/2022 5:59 AM CDT Narrative [facility]PS SPECTRA [facility] - 01/09/2022 Unless otherwise specified, test(s) performed at: [facility], [address] [place] [address], [place] [address] [employer] OFFICER: Rojas Kirkland M.D., Ph.D For any questions, please call customer service at FREQUENCY:MONTHLY Resulting Agency Comment Specimen source: Plasma Darren Youssef MD LAB BLOOD ORDERABLES Performing Organization Address City/[facility]/ZIP Code Phon e Number [facility] IMMUNO CHEMISTRY (01/08/2022) athologist Signature Hep B Surface Negative Negative [facility] Ag [facility] Hepatitis B 196 mIU/mL [facility] Surface Ab [facility] Comment: The anti-HBs (Hepatitis B surface antibo dy) is greater than or equal to 10 mIU/mL and implies immunity. The linda ent has either had an antibody response to HBV vaccination, received a transfusion, or has recovered from HBV infection. For post-vaccination antibody testing guidelines for the general public, refer to MMWR Decemb 2004/Vol.54 (No. 16); -, and for healthcare workers, refer to MMWR May 27, 2013/Vol.62 (No. 10); 1-18. Reference Range: <10 mIU/mL ? Non-Immune >=10 mIU/mL ?Immune The magnitude of the measured result abo ve 10 mIU/mL is not indicative of the total amount of antibody present. Specimen (Source) Anatomical Collection Method Collection Time Re ceived Time Location / / Volume Laterality 01/08/2022 01/09/2022 3:53 AM CDT Resulting Agency Comment Specimen source: Plasma Darren Youssef MD LAB BLOOD ORDERABLES Performing Organization Address City/[facility] Code Phon e Number APS SPECTRA [facility] (ABNORMAL) Spectrae Chemistry (01/08/2022) P athologist Signature PTH 460 (H) 16 - 80 APS SPECTRA pg/mL [facility] Specimen (Source) Anatomical Collection Method Collection Time Re ceived Time Location / / Volume Laterality 01/08/2022 01/09/2022 3:53 AM CDT Narrative APS SPECTRA [facility] - 01/09/2022 Unless otherwise specified, test(s) performed at: [facility], [address] [place] [address], [place] [address] [employer]ER: Rojas Kirkland M.D., Ph.D For any questions, please call customer service at FREQUENCY:MONTHLY Resulting Agency Comment Specimen source: Plasma Darren Youssef MD LAB BLOOD ORDERABLES Performing Organization Address City/State/[facility] Phon e Number APS SPECTRA [facility] (ABNORMAL) Spectrae Chemistry (01/08/2022) Patholo gist Method Time Signature BUN 58 (H) 6 - 19 APS SPECTRA mg/dL [facility] Creatinine 9.34 (H) 0.60 - [facility]PS [facility]PECTRA 1.30 mg/dL [facility] BUN/Creatinine 6.2 (L) 10.0 - [facility]RA Ratio 20.0 [facility] Sodium 137 136 - 145 [facility]RA mEq/L [facility] Potassium 3.8 3.5 - 5.1 [facility]RA mEq/L [facility] Chloride 98 96 - 108 A[facility]RA mEq/L [facility] Bicarbonate 28 20 - 31 APS SPECTRA (CO2) mEq/L [facility] Comment: Please note change in reference range. Calcium 8.9 8.7 - 10.4 mg/dL APS SPECTRA [facility] Comment: Please note change in reference range. Corrected Calcium 8.9 8.7 - 10.4 mg/dL APS S PECTRA [facility] Comment: Corrected Calcium is not equivalent to m easured Ionized Calcium. Phosphorus 5.2 (H) 2.6 - 4.5 mg/dL APS SPECTRA K [facility] Calcium Phosphorus Product 46 0 - 54 APS SPECTRA [facility] Calcium Phosporus Product, Cor 46 0 - 54 APS SPECTRA [facility] Total Protein 7.5 6.0 - 8.5 g/dL APS SPECTRA [facility] Albumin 4.0 3.5 - 5.2 g/dL [facility] Globulin, Total 3.5 2.0 - 4.0 g/dL APS SPECT RA [facility] A/G Ratio 1.1 1.0 - 2.0 APS SPECTRA [facility] Iron 79 45 - 160 mcg/dL APS SPECT[facility] UIBC 140 (L) 155 - 355 mcg/dL APS SPECTRA K [facility] TIBC 219 185 - 515 mcg/dL APS SPECTRA K [facility] Iron Saturation (TSat) 36 20 - 55 % APS SPE CTRA [facility] Specimen (Source) Anatomical Collection Method Collection Time Re ceived Time Location / / Volume Laterality 01/08/2022 01/09/2022 3:32 AM CDT Narrative APS SPECTRA [facility] - 01/09/2022 Unless otherwise specified, test(s) performed at: [facility] [place] [address] [employer]ER: Rojas Kirkland M.D., Ph.D For any questions, please call customer service at FREQUENCY:MONTHLY Resulting Agency Comment Specimen source: Serum Darren Youssef MD LAB BLOOD ORDERABLES Performing Organization Address City/State/ZIP Code Phon e Number APS SPECTRA [facility] (ABNORMAL) HEMATOLOGY (01/08/2022) Analysis Performed At Patho logist Time Signature WBC 5.60 4.80 - APS SPECTRA 10.80 [facility] 1000/mcL RBC 3.25 (L) 4.70 - APS SPECTRA 6.10 [facility] mill/mcL Hemoglobin 10.5 (L) 14.0 - APS [facility]PECTRA 18.0 g/dL [facility] Hemoglobin x 3 31.5 (L) 42.0 - APS [facility]PECTRA 54.0 % [facility] Hematocrit 32.5 (L) 42.0 - APS [facility]PECTRA 52.0 % [facility] MCV 100 80 - 100 [facility]PECT[facility] fl [facility] MCH 32.4 (H) 27.0 - APS [facility]PECTRA 31.0 pg [facility] MCHC 32.4 30.0 - APS [facility]PECTRA 36.0 g/dL [facility] RDW 15.1 (H) 11.5 - APS [facility]PECTRA 14.5 % [facility] Platelets 125 (L) 130 - 400 APS SPECTRA 1000/mcL [facility] Specimen (Source) Anatomical Collection Method Collection Time Re ceived Time Location / / Volume Laterality 01/08/2022 01/09/2022 3:32 AM CDT Narrative APS SPECTRA [facility] - 01/09/2022 Unless otherwise specified, test(s) performed at: [facility], [address] [place] [address], [place] [address] [employer]ER: Rojas Kirkland M.D., Ph.D For any questions, please call customer service at FREQUENCY:MONTHLY Resulting Agency Comment Specimen source: Blood Darren Youssef MD LAB BLOOD ORDERABLES Performing Organization Address City/State/ZIP Code Phon e Number APS SPECTRA [facility] documented in this encounter Visit Diagnoses Not on filedocumented in this encounter
--- OUTSIDE RECORDS SUMMARY | 2022-04-17 14:28 | XMS_ITS | Clinical Summary ---
:1940 Author Organization [employer] [facility] [facility] [place] [address] Care Team Providers Name Role Phone Dylan Xiong MD Primary Care Provider Allergies Active Allergy Reactions Severity Noted Date Comments Atorvastatin Other - Describe In 07/04/2006 bad pain in legs per pt. Comment Field Lisinopril GI Upset 07/06/2006 Metoclopramide Other - Describe In 11/07/2015 Gyneco mastia Comment Field Omeprazole Diarrhea 09/04/[address] [facility] Tolerates hakeem nix. Medications Medication Sig Dispensed Refills Start End Date Status Date ALBUTEROL SULFATE HFA 90 Inhale 2 Puffs by 0 00 Active MCG/ACTUATION AEROSOL mouth every 4 8 INHALER hours if needed. nitroglycerin (NITROSTAT) Place 1 tablet 1 Bottle 6 Active 0.4 mg SL tablet under the tongue 1 every 5 minutes if needed for Chest Pain. levothyroxine (SYNTHROID) Take 1 tablet by 0 01 Active 175 mcg mouth once daily. 2 tabletIndications: Unspecified hypothyroidism pravastatin (PRAVACHOL) Take 1 tablet by 90 tablet 3 Active 80 mg tabletIndications: mouth at bedtime. 3 Type II or unspecified type diabetes mellitus with renal manifestations, not stated as uncontrolled(250.40), Pure hypercholesterolemia acetaminophen (TYLENOL Take 1 tablet by 0 Active EXTRA STRGTH) 500 mg mouth every 4 5 tablet hours if needed for Pain. Max acetaminophen dose: 4000mg in 24 hrs. artificial tears, peg Place 1-2 Drops 0 Active 400-propylene glycol, into both eyes 5 (SYSTANE) 0.4-0.3 % drop every hour if ophthalmicIndications: needed for Dry Detached retina, Eyes. unspecified laterality fluticasone (50 mcg per Inhale 1 [place] 1 Bottle 0 Active actuation) nasal solution into both 6 (FLONASE)Indications: nostrils once Other allergic rhinitis daily. budesonide-formoterol Inhale 2 Puffs by 1 Inhaler 0 Active (SYMBICORT) 160-4.5 mouth 2 times 6 mcg/actuation (160-4.5 daily. mcg each actuation) inhalerIndications: Other emphysema (HC) tiotropium (SPIRIVA) 18 Inhale 18 mcg by 90 capsule 3 02/08/20 1 Active mcg inhalation mouth once daily. 6 capsuleIndications: Other emphysema (HC) coenzyme q10 (CO Q-10) Take 100 mg by 0 Active 100 mg cap mouth once daily. loratadine (CLARITIN) 10 Take 10 mg by 0 Active mg tablet mouth once daily. [id number]-[id number]-[id number] Take 1 capsule by 0 Active o-ast (MEGARED OMEGA-3 mouth once daily. KRILL OIL) 1,000-230-60 mg cap montelukast (SINGULAIR) Take 1 tablet by 90 tablet 3 Active 10 mg tabletIndications: mouth at bedtime. 7 Other allergic rhinitis cholecalciferol (VITAMIN Take 2,000 Units 0 Active D-3) 2,000 unit capsule by mouth once daily. B Complex-Vitamin C-Folic Take by mouth. 0 Active Acid (DIALYVITE) 100-1 mg 9 tab aluminum Take 1 tablet by 0 Act herman hydroxide-magnesium mouth 3 times 0 trisilicate, 80-14.2 mg, daily if needed (GAVISCON) chewable for Heartburn. tablet Dextromethorphan-guaFENes Take 5 mL by 1 Bottle 0 Active in (ROBITUSSIN mouth every 8 0 COUGH-CHEST LEIDA DM) hours if needed 5-100 mg/5 mL liqd (cough). aspirin (ECOTRIN) 81 mg Take 1 tablet by 0 Active enteric coated mouth once daily 0 tabletIndications: with a meal. Hold Atherosclerosis of [place] x 5 days. Resume coronary artery of [place] taking on heart with angina 11/23/2019. pectoris (HC) vitamin e 400 unit Take 1 capsule by 0 Active capsule mouth once daily. 0 sennosides (SENNA) 8.6 mg Take 1-3 Tablets 180 Tablet 3 Active tabletIndications: Other (8.6-25.8 mg) by 1 constipation mouth 2 times daily. medication order Coloplast. 10 Each 12 Ac tive composerIndications: Speedicath 14 Fr 1 Urinary retention Tiemann tip. Ref # [id number] Lantus Solostar U-100 Inject 42 units 0 Active Insulin 100 unit/mL (3 subcutaneous 1 mL) penIndications: Type before bedtime. 2 diabetes mellitus with Product desired: other specified BASAGLAR complication, with long-term current use of insulin (HC) polyethylene glycoL Mix 1 scoop (17 0 Active (MIRALAX) 17 gram/dose g) in liquid then 1 powderIndications: Other take by mouth constipation once daily if needed for Constipation. insulin aspart, U-100, Inject 1-6 units subcutaneou s 3 times daily before meals. Give subcutaneous TID with meals per blood glucose (mg/dL). Don't give corrective dose for PRN, post-prandial or nocturnal glucose checks unless ordered. 3 mL 0 Active (NOVOLOG FLEXPEN) 100 Blood Glucose.....Dose 1 unit/mL (3 mL) <70...............See Hypoglycemia Protocol penIndications: Type 2 70-149..........No insulin, give prandial insulin, if ordered diabetes mellitus with 150-199........1 unit other specified 200-249........2 units complication, with 250-299........3 units long-term current use of 300-349........4 units insulin (HC) 350-399........5 units 400 or greater....6 units & call CPAP Use at bedtime 1 Each 0 Activ e CPAP machine for home use at pressure auto set 1 Settings can be updated with home settings if known. docusate (COLACE) 100 mg Take 1 Capsule 20 Capsule 0 Active capsuleIndications: (100 mg) by mouth 1 Constipation, unspecified 2 times daily if constipation type needed for Constipation. fluticasone INHALE 1 PUFF BY 0 A ctive propion-salmeteroL INHALATION TWICE 1 (ADVAIR) 250-50 mcg/Dose A DAY TO PREVENT diskus inhaler TROUBLE BREATHING -RINSE MOUTH AFTER USING isosorbide mononitrate Take 0.5 Tablets 45 Tablet 3 Active (IMDUR) 30 mg extended (15 mg) by mouth 2 release tablet 24 once daily. Take HourIndications: Ischemic at bedtime. cardiomyopathy, Atherosclerosis of [place] coronary artery of [place] heart with angina pectoris (HC) Active Problems Problem Noted Date Pneumonia due to COVID-19 virus 02/06/2021 Respiratory distress 02/06/2021 skilled nursing (current) use of insulin 10/19/2020 CKD (chronic kidney disease) stage 5, GFR less than 15 ml/min 10/29/2018 Severe obesity (BMI 35.0-39.9) with comorbidity 2016 Calculus of gallbladder without cholecystitis 08/08/19 17 Second degree heart block 08/07/2016 Overview: [place] 1 Right upper lobe pneumonia 07/27/2016 Leg erythema 04/11/2016 History of surgical site infection 04/11/2016 Allergic rhinitis 10/31/2015 Fracture of fibula with tibia, left, closed 04/13/2015 Pulmonary emphysema 04/13/2015 Acquired hypothyroidism 04/13/2015 CHLOE (obstructive sleep apnea) 07/20/2013 Asbestosis(501) 12/26/2010 Overview: Needs annual CXR and PFT's Colon polyps 06/22/2009 Overview: Colonoscopy 03/2010 polyp, poor prep rep eat in 3 years Detached retina 10/10/2008 Overview: L eye 2006 Gastroesophageal reflux disease with esophagitis 06/09 Diabetic foot ulcer 05/24/2008 Unspecified essential hypertension 05/24/2008 Charcot foot 03/30/2008 Overview: Bilateral due to his diabetic peripheral Benign neoplasm of colon 10/07/2007 Overview: Colonoscopy 03/2013 normal repeat in 5 y ears Unspecified constipation 07/13/2006 STATUS POST CABG 07/09/06 07/10/2006 Overview: Coronary artery bypass x4, left internal mammary artery to left anterior descending, saphenous vein to obtuse marginal 1, sap henous vein to obtuse marginal 2, saphenous vein to diagonals. 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 Overview: Status post CABG x4; 07/09/06 Personal history of contact with and (suspected) expos ure to asbestos Overview: With abnl lung nodules Ischemic cardiomyopathy Chronic airway obstruction, not elsewhere classified Anemia of chronic renal failure Resolved Problems Problem Noted Date Resolved Date COVID 02/06/2021 02/06/2021 Diabetic retinopathy associated with type 2 diabetes 021 02/06/2021 mellitus End stage renal failure on dialysis 02/06/202106/2020 End-stage renal disease 10/24/2020 02/06/2021 Iron deficiency anemia, unspecified 10/19/202006/2020 Type 2 diabetes mellitus with neurological manifestation 12/201802/06/2021 Diabetes mellitus due to underlying condition with diabetic 11/11/2018 11/12/2018 nephropathy, with long-term current use of insulin Type 2 diabetes mellitus with stage 5 chronic kidney disease 11/11/2018 02/06/2021 Anticoagulation monitoring, INR range 2-3 10/30/2015 04/09/2016 Anticoagulation monitoring, special range [Z79.01] (1.8-2.5) 10/30/2015 12/19/2015 Type 2 diabetes mellitus with diabetic nephropathy 5 10/31/2015 CKD (chronic kidney disease) stage 4, GFR 15-29 ml/min 04/1305/19/2019 DM Renal Manif Type II 01/18/2013 09/04/2015 DM Renal Manif Type II 01/18/2013 09/04/2015 Sleep apnea 10/08/2010 09/04/2015 DM Renal Manif Type II 06/10/2008 09/04/2015 Overview: Creatinine 1.4 -1.5 Type II or unspecified type diabetes mellitus with neurologi johnathon 06/10/2008 04/09/2016 manifestations, not stated as uncontrolled Overview: Dx 1987 Type 2 diabetes mellitus with stage 4 chronic kidney disease 06/10/2008 10/29/2018 Overview: L foot ulcer Unspecified hypothyroidism 12/28/2007 09/04/2015 Edema 09/20/2007 04/09/2016 Type II or unspecified type diabetes mellitus without mentio n 09/20/2007 of complication, not stated as uncontrolled Cough 07/16/2006 Hypervolemia 08/07/2016 Encounters Date Type Specialty Care Team Description 04/17/2022 Orders Only <No scans attac hed> 04/09/2022 Nurse/Clinic Staff Procedure (Bladder Only irrigation with Gentamycin) 04/09/2022 Travel 04/08/2022 Telephone Dylan Xiong CLINIC NOTES MD [facility] 04/03/2022 Travel 03/26/2022 Nurse/Clinic Staff Procedure (Bladder Only irrigation with gent) 03/26/2022 Travel 03/12/2022 Nurse/Clinic Staff Procedure (Bladder Only irrigation with gentamycin) 03/12/2022 Travel 02/28/2022 Telephone Eriberto Yip MD 02/27/2022 Office Visit Yoana Jarquin, TAPROOM ATTENDANT Atrial F ibrillation (Follow up, pt states he is doing ok. BP has been running low at times during dialysis ) 2022 Nurse/Clinic Staff Procedure (Bladder Only irrigation w/Ge ntamycin) 2022 Travel 02/12/2022 Nurse/Clinic Staff Procedure (Bladder Only irrigation with Gentamycin) 02/12/2022 Travel 02/05/2022 Nurse/Clinic Staff Procedure (Bladder Only irrigation with gent) 02/05/2022 Office Visit Patricia Nichols Consult (Zeny Oswald MD abscess) 02/05/2022 Travel 02/04/2022 Orders Only Dylan Xiong Procedure (Kalia Wall MD irrigation with Gentamy... 01/29/2022 Nurse/Clinic Staff Procedure (Bladder Only irrigation with Gentamycin) 01/29/2022 Telephone Patricia Nichols Appointment Re roro Oswald MD 01/29/2022 Travel 01/22/2022 Nurse/Clinic Staff Procedure (Bladder Only irrigation with gent) 01/22/2022 Travel 01/15/2022 Nurse/Clinic Staff Only 01/15/2022 Travel from Last 3 Months Immunizations Name Administration Dates Next Due COVID-19 vaccine ([facility] 10/10/2021 30mcg/0.3mL) 12YO+ ALY-SUCROSE PF, MDV COVID-19 vaccine ([facility] 04/04/2021, 08/23/2020, 30mcg/0.3mL) PF, MDV Hep B (Hepatitis B (Adult) 03/25/2021, 01/28/2021, , Recombinant Adjuvanted) 11/26/2020 Influenza Virus, Unspecified 04/22/2019, 03/08/2014, 013, 04/02/2012, 04/04/2011, 04/03/2010, 02/16/2009, 03/08/2007, 03/08/2006, 04/10/2005, 03/27/2004, 04/08/2003 Influenza, High-dose Inactivated 02/18/2016, 04/11/2015 Influenza, High-dose Quadrivalent 03/08/2021 Inactivated Influenza, IIV3 (Age >=3 years) 03/20/2008, 04/10/2003, 04/09 Pneumococcal Poly,23-Valent 03/19/1994 (Pneumovax) Pneumococcal conj 13-Valent (Prevnar 04/11/2015 13) Pneumococcal, Unspecified 03/23/2013, 08/25/2003 TD, UNSPECIFIED 03/24/2008, 06/08/2003, 06/08/1994 Td (Age >=7 Years) 03/02/1995 Td, Preservative Free (age >= 7 03/20/2008 Years) Tdap 06/29/2012 Zoster (Shingrix-RZV, recombinant) 09/18/2020, 03/15/2020 Zoster (Zostavax-ZVL, live) 06/08/2013, 10/21/2012 Family History Medical History Relation Name Comments Diabetes Brother 1 Cancer Brother 2 leukemia Other Father Alzheimer's d at 92 Cancer Mother oral cancer d at 87 Relation Name Status Comments Brother 1 Brother 2 Father Mother Social History Tobacco Use Types Packs/Day Years Used Date Former Smoker 1 10 Quit: 11/26/18 74 Smokeless Tobacco: Never Used Tobacco Cessation: Counseling Given: Yes Comments: quit in 74 Alcohol Use Standard Drinks/Week Comments Yes 0 (1 standard drink = 0.6 oz pure alcoho l) Glass of wine with a steak Alcohol Habits Answer Date Recorded How often do you have a drink containing alcohol? Monthly or less 04/16/2019 How many drinks containing alcohol do you have on a 1 or 2 04/16/2019 typical day when you are drinking? How often do you have six or more drinks on one Never 04/16/2019 occasion? Comment: Not asked Sex Assigned at Date Recorded Not on file COVID-19 Exposure Response Date Recorded In the last 10 days, have you been in contact with No / Unsu re 04/09/2022 3:09 PM CDT someone who was confirmed or suspected to have Coronavirus/COVID-19? Obstetrics History Last Filed Vital Signs Vital Sign Reading Time Taken Comments Blood Pressure 98/48 02/27/2022 1:28 PM CDT Pulse 71 02/27/2022 1:28 PM CDT Temperature 36.5 ??C (97.7 ??F) 03/04/2021 8:14 PM CDT Respiratory Rate 18 03/04/2021 8:14 PM CDT Oxygen Saturation 97% 02/27/2022 1:28 PM CDT Inhaled Oxygen Concentration - - Weight 101 kg (222 lb 10.6 oz) 02/27/2022 1:28 PM CDT Height 182.9 cm (6') 02/27/2022 1:28 PM CDT Body Mass Index 30.2 02/27/2022 1:28 PM CDT Plan of Treatment Upcoming Encounters Date Type Specialty Care Team Description 04/23/2022 Nurse/Clinic Staff Only 05/21/2022 Cardiac Device Check Health Maintenance Due Date Last Done Comments Medicare Wellness for age 65+ 05/18/2020 05/19/2019 COVID-19 vaccine series (5 - 12/05/2021 10/10/2021, 021, Booster for Pfizer series) 08/23/2020, Additiona l history exists Influenza for age 65+ 02/06/2022 03/08/2021, 04/22/2019, 03/02/2017 (Completed [facility]), Additional history exists Depression screening for age 12+ 04/04/2022 04/04/2021, , 05/19/2019, Additional history exists Tetanus booster 06/29/2022 06/29/2012, 03/24/2008, 03/20/2008, Additional history exists BMI (ht and wt on same day) for 02/27/2023 02/27/2022, 03/08, age 18+ 11/24/2019, Additional history exists Tdap Completed 06/29/2012 Pneumococcal series for age 65+ Completed 04/11/2015, 03/08, 08/25/2003, Additional history exists Zoster (shingles) series for age Completed 09/18/2020, 01/2020, 50+ 06/08/2013, Additional history exists Medical Devices Implanted Type Area B And B Gang Worker Device Shelf Model / Identifier Expiration Serial / Date Lot Screw Sm Joint 4x85mm Axsos Lock Slf Tppng [address] - [id number] Left: Leg [place] [employer] [id number] / Implanted: Qty: 1 on 04/15/2015 by Ziyad lyn, Rj Echeverria MD at [facility] / Explanted Type Area [employer] And B Gang Worker Device Shelf Model / Identifier Expiration Serial / Date Lot K-Wire [place] 10pk - [id number] Left: Leg Destiny [id number] / Explanted: Qty: 2 on 04/15/2015 at [facility] Orthopaedics / Procedures Procedure Name Priority Date/Time Associated Diagnosis Comme nts ECHO COMPLETE WO Routine 04/17/2022 2:20 PM Ischemic cardiomyo denise CONTRAST AB INITIO ETL DEVELOPER from Last 3 Months Results Not on filefrom Last 3 Months Insurance Payer Benefit Plan / Subscriber ID Effective Dates Phone Addre ss Type Group MEDICARE PART MEDICARE RR [id number] 2003-[place] [address] - HB USE [place] [phone] MEDICARE MEDICARE RR [id number] 2020-Presen [address] [address] [address] PART B [place] [id number] [facility] [id number] 2020-Pres [phone] [id number] [place] [address] MEDICARE MEDICARE RR [id number] 2003-Presen [address] PART B HB ONLY RUPESH Villalobos [facility] [id number] (Home) [place] [id number] [facility] Self 1940 [address] (Home) [phone] Stefany [place] (Work) [phone] Advance Directives Documents on File Type Date Recorded Patient Duplicator Punch Operator Explanati on Healthcare Directive 06/09/2019 12:00 AM 9 Power of Water Mechanic 07/19/2006 Latest Code Status on File Code Status Date Activated Date Inactivated Comments Full Code 02/06/2021 8:59 PM 02/14/2021 3:44 PM Code Status Discussion: Discussed Full Code 11/17/2019 5:03 PM 11/18/2019 12:45 PM Code Status Discussion: Not Discussed Full Code 10/29/2018 11:52 AM 11/02/2018 9:20 PM Full Code 07/27/2016 9:40 AM 07/30/2016 7:11 PM Code Status Discussion: Discussed Full Code 04/09/2016 10:30 PM 04/12/2016 5:14 PM Care Teams Superintendent Police Relationship Specialty Start Date End Date Dylan Xiong MD PCP - General 11/19/[address] [place] [address] (work)
--- OUTSIDE RECORDS SUMMARY | 2022-04-17 14:28 | XMS_ITS | Clinical Summary ---
:1940 Author Organization [facility] Facility Address [address] [place] [address] Care Team Providers Name Role Phone Unavailable Primary Care Provider Unavailable Encounters Date Type Specialty Care Team Description 04/16/2022 Orders Only NephDarren Colindres MD 04/09/2022 Orders Only NephDarren Colindres MD 04/09/2022 Treatment Darren Youssef MD 04/02/2022 Orders Only NephDarren Colindres MD 03/26/2022 Orders Only NephDarren Colindres MD 03/26/2022 Treatment Darren Youssef MD 03/19/2022 Orders Only NephDarren Colindres MD 03/19/2022 Treatment Darren Youssef MD 03/12/2022 Orders Only NephDarren Colindres MD 03/05/2022 Orders Only NephDarren Colindres MD 2022 Orders Only NephDarren Colindres MD 2022 Treatment Darren Youssef MD 02/19/2022 Orders Only NephDarren Colindres MD 02/19/2022 Treatment Darren Youssef MD 02/12/2022 Orders Only NephDarren Colindres MD 02/05/2022 Orders Only NephDarren Colindres MD 01/29/2022 Orders Only NephDarren Colindres MD 01/29/2022 Treatment Darren Youssef MD 01/22/2022 Orders Only NephDarren Colindres MD 01/15/2022 Orders Only NephDarren Colindres MD from Last 3 Months Social History Tobacco Use Types Packs/Day Years Used Date Smoking Tobacco: Never Assessed Sex Assigned at Date Recorded Not on file Plan of Treatment Health Maintenance Due Date Last Done Comments Hepatitis B Vaccine (1 of 5 - Risk 1960 Dialysis 4-dose series) Pneumococcal Vaccine: 65+ Years (3 04/11/2016 04/11/2015, 1 - PPSV23 if available, else PCV20) Diabetes: Ophthalmology Exam 09/08/2019 Diabetes: Pedal Pulse Checked 09/08/2019 Diabetes: Sensory Foot Exam 09/08/2019 Diabetes: Visual Foot Exam 09/08/2019 Diabetes: Hemoglobin A1C 12/24/2020 09/24/2020, 09/17/2020, 03/26/2020, Additional history exists Influenza Vaccine (#1) 2022 02/18/2016, 04/11/2015, 03/20/2008, Additional history exists Procedures Procedure Name Priority Date/Time Associated Diagnosis Comme nts HEMATOLOGY Routine 04/16/2022 Results for thi s procedure are i n the results section . SPECTRA [facility] LAB RESULTS Routine 04/09/2022 Resul ts for this procedure are i n the results section . HD KINETICS Routine 04/09/2022 Results for thi s procedure are i n the results section . POST CHEMISTRY Routine 04/09/2022 Results for t his procedure are i n the results section . CHEMISTRY Routine 04/09/2022 Results for thi s procedure are i n the results section . HEMATOLOGY Routine 04/09/2022 Results for thi s procedure are i n the results section . IMMUNO CHEMISTRY Routine 04/09/2022 Results for this procedure are i n the results section . HEMATOLOGY Routine 04/02/2022 Results for thi s procedure are i n the results section . HEMATOLOGY Routine 03/26/2022 Results for thi s procedure are i n the results section . HEMATOLOGY Routine 03/19/2022 Results for thi s procedure are i n the results section . SPECTRA [place] LAB RESULTS Routine 03/12/2022 Resul ts for this procedure are i n the results section . IMMUNO CHEMISTRY Routine 03/12/2022 Results for this procedure are i n the results section . CHEMISTRY Routine 03/12/2022 Results for thi s procedure are i n the results section . HD KINETICS Routine 03/12/2022 Results for thi s procedure are i n the results section . POST CHEMISTRY Routine 03/12/2022 Results for t his procedure are i n the results section . CHEMISTRY Routine 03/12/2022 Results for thi s procedure are i n the results section . HEMATOLOGY Routine 03/12/2022 Results for thi s procedure are i n the results section . HEMATOLOGY Routine 03/05/2022 Results for thi s procedure are i n the results section . HEMATOLOGY Routine 2022 Results for thi s procedure are i n the results section . HEMATOLOGY Routine 02/19/2022 Results for thi s procedure are i n the results section . SPECTRA [place] LAB RESULTS Routine 02/12/2022 Resul ts for this procedure are i n the results section . HD KINETICS Routine 02/12/2022 Results for thi s procedure are i n the results section . CHEMISTRY Routine 02/12/2022 Results for thi s procedure are i n the results section . HEMATOLOGY Routine 02/12/2022 Results for thi s procedure are i n the results section . POST CHEMISTRY Routine 02/12/2022 Results for t his procedure are i n the results section . IMMUNO CHEMISTRY Routine 02/12/2022 Results for this procedure are i n the results section . CHEMISTRY Routine 02/12/2022 Results for thi s procedure are i n the results section . BLOOD CULTURE Routine 02/12/2022 Results for th is procedure are i n the results section . HEMATOLOGY Routine 02/05/2022 Results for thi s procedure are i n the results section . HEMATOLOGY Routine 01/29/2022 Results for thi s procedure are i n the results section . HEMATOLOGY Routine 01/22/2022 Results for thi s procedure are i n the results section . HEMATOLOGY Routine 01/15/2022 Results for thi s procedure are i n the results section . from Last 3 Months Results (ABNORMAL) HEMATOLOGY (04/16/2022)Only the most recent of14 resultswithin the time period is included. Analysis Performed At Patho logist Time Signature Hemoglobin 9.9 (L) 14.0 - APS SPECTRA 18.0 g/dL [facility] Hemoglobin x 3 29.7 (L) 42.0 - APS [facility]PECTRA 54.0 % [facility] Specimen (Source) Anatomical Collection Method Collection Time Re ceived Time Location / / Volume Laterality 04/16/2022 04/17/2022 4:50 AM SKIVER BLOCKERS Narrative APS SPECTRA [facility] - 04/17/2022 Unless otherwise specified, test(s) performed at: [facility], [address] [place] [address] FIRE EXTINGUISHER MECHANIC: Rojas Kirkland M.D., Ph.D For any questions, please call customer service at FREQUENCY:OTHER Resulting Agency Comment Specimen source: Blood Darren Youssef MD LAB BLOOD ORDERABLES Performing Organization Address City/[facility]/ZIP Code Phon e Number APS SPECTRA [facility] HD KINETICS (04/09/2022)Only the most recent of3 resultswithin the time period is included. athologist Signature % Urea 76 65 - 80 % [facility]PS [facility]PECTRA Reduction [facility] Specimen (Source) Anatomical Collection Method Collection Time Re ceived Time Location / / Volume Laterality 04/09/2022 04/10/2022 2:58 AM CDT Resulting Agency Comment Specimen source: Plasma Darren Youssef MD LAB BLOOD ORDERABLES Performing Organization Address City/[facility]/ZIP Code Phon e Number APS SPECTRA [facility] POST CHEMISTRY (04/09/2022)Only the most recent of3 resultswithin the time period is included. athologist [facility] BUN Post 16 6 - 19 APS SPECTRA Dialysis mg/dL [facility] Specimen (Source) Anatomical Collection Method Collection Time Re ceived Time Location / / Volume Laterality 04/09/2022 04/10/2022 2:58 AM CDT Narrative APS SPECTRA [facility] - 04/10/2022 Unless otherwise specified, test(s) performed at: [facility], [address] [place] [address], [place] [address] FIRE EXTINGUISHER MECHANIC: Rojas Kirkland M.D., Ph.D For any questions, please call customer service at FREQUENCY:MONTHLY Resulting Agency Comment Specimen source: Plasma Darren Youssef MD LAB BLOOD ORDERABLES Performing Organization Address City/[facility]/ZIP Code Phon e Number APS SPECTRA [facility] IMMUNO CHEMISTRY (04/09/2022)Only the most recent of3 resultswithin the time period is included. athologist Signature Hep B Surface Negative Negative [facility] Ag [facility] Hepatitis B 114 mIU/mL [facility] Surface Ab [facility] Comment: [...] to MMWR May 27, 2013/Vol.62 (No. 10); -18. Reference Range: <10 mIU/mL ? Non-Immune >=10 mIU/mL ?Immune The magnitude of the measured result abo ve 10 mIU/mL is not indicative of the total amount of antibody present. Specimen (Source) Anatomical Collection Method Collection Time Re ceived Time Location / / Volume Laterality 04/09/2022 04/10/2022 2:40 AM CDT Narrative APS SPECTRA [facility] - 04/10/2022 Unless otherwise specified, test(s) performed at: [facility], [address] [place] [address], [place] [address] FIRE EXTINGUISHER MECHANIC: Rojas Kirkland M.D., Ph.D For any questions, please call customer service at FREQUENCY:MONTHLY Resulting Agency Comment Specimen source: Plasma Darren Youssef MD LAB BLOOD ORDERABLES Performing Organization Address City/State/ZIP Code Phon e Number APS SPECTRA [facility] (ABNORMAL) Spectrae Chemistry (04/09/2022)Only the most recent of5 resultswithin the time period is included. [facility] gist Method Time Signature BUN 66 (H) 6 - 19 APS SPECTRA mg/dL [facility] Creatinine 9.70 (H) 0.60 - APS SPECTRA 1.30 mg/dL [facility] BUN/Creatinine 6.8 (L) 10.0 - [facility] Ratio 20.0 [facility] Sodium 140 136 - 145 APS [facility]PECTRA mEq/L [facility] Potassium 4.4 3.5 - 5.1 APS [facility]RA mEq/L [facility] Chloride 97 96 - 108 APS [facility]PECTRA mEq/L [facility] Bicarbonate 25 20 - 31 APS SPECTRA (CO2) mEq/L [facility] Comment: Please note change in reference range. Calcium 9.5 8.7 - 10.4 mg/dL APS SPECTRA K [facility] Comment: Please note change in reference range. Corrected Calcium 9.3 8.7 - 10.4 mg/dL APS S PECTRA [facility] Comment: Corrected Calcium is not equivalent to m easured Ionized Calcium. Phosphorus 6.1 (H) 2.6 - 4.5 mg/dL APS SPECTRA K [facility] Calcium Phosphorus Product 58 (H) 0 - 54 APS SPECTRA [facility] Calcium Phosporus Product, Cor 57 (H) 0 - 54 APS SPECTRA [facility] Total Protein 7.4 6.0 - 8.5 g/dL APS SPECTRA [facility] Albumin 4.2 3.5 - 5.2 g/dL [facility] Globulin, Total 3.2 2.0 - 4.0 g/dL APS SPECT RA [facility] A/G Ratio 1.3 1.0 - 2.0 [facility]PS SPECTRA [facility] Iron 118 45 - 160 mcg/dL APS SPECTRA [place] [facility] UIBC 120 (L) 155 - 355 mcg/dL APS SPECTRA K [facility] TIBC 238 185 - 515 mcg/dL APS SPECTRA K [facility] Iron Saturation (TSat) 50 20 - 55 % APS SPE CTRA [facility] Specimen (Source) Anatomical Collection Method Collection Time Re ceived Time Location / / Volume Laterality 04/09/2022 04/10/2022 2:50 AM CDT Narrative APS SPECTRA [facility] - 04/10/2022 Unless otherwise specified, test(s) performed at: [facility], [address] [place] [address], [place] [address] FIRE EXTINGUISHER MECHANIC: Rojas Kirkland M.D., Ph.D For any questions, please call customer service at FREQUENCY:MONTHLY Resulting Agency Comment Specimen source: Serum Darren Youssef MD LAB BLOOD ORDERABLES Performing Organization Address City/State/ZIP Code Phon e Number APS SPECTRA [facility] Spectra [place] Lab Results (04/09/2022)Only the most recent of3 resultswithin the time period is included. P athologist Signature spKt/V Gotch 1.73 [place] eNPCR 1.13 [place] spKt/V 1.65 [place] (Daugirdas II) PCR 74.64 [place] eKdrt/V 1.46 [place] eKt/V Gotch 1.46 [place] eKt/V 1.41 [place] ([place]) nPCR_HD 1.22 [place] Specimen (Source) Anatomical Location Collection Method / Collectio n Time Received Time / Laterality Volume 04/09/2022 04/09/2022 [place] Ordering Provider LAB BLOOD ORDERABLES Performing Organization Address City/State/ZIP Code Phon e Number [place] Blood culture (02/12/2022) Analysis Performed At Patho logist Time Signature Culture, Blood See below [facility]PS SPECTRA [facility] Comment: No Aerobic or Anaerobic Growth after 5 D ays of Incubation. Specimen (Source) Anatomical Collection Method Collection Time Re ceived Time Location / / Volume Laterality 02/12/2022 02/13/2022 10:3 2 AM CDT Narrative APS SPECTRA [facility] - 02/18/2022 Unless otherwise specified, test(s) performed at: [facility], [address] [place] [address] [address] [place] [address] FIRE EXTINGUISHER MECHANIC: Rojas Kirkland M.D., Ph.D For any questions, please call customer service at FREQUENCY:OTHER Resulting Agency Comment Specimen source: Blood/Dialysis Bloodlin e Darren Youssef MD LAB MICROBIOLOGY - GENERAL O RDERABLES Performing Organization Address City/State/ZIP Code Phon e Number APS SPECTRA [facility] from Last 3 Months Insurance Payer Benefit Plan / Subscriber ID Effective Dates Phone Addre ss Type Group MEDICARE RR MEDICARE [id number] 2003-Presen [phone] [address] [address] [address] [place], [place] ([place]) [address] [facility] [id number] 2009-Presen [phone] [id number] ([id number]) [place] [address]
--- OUTSIDE RECORDS SUMMARY | 2022-04-17 14:28 | XMS_ITS | Encounter Summary ---
:1940 Author Organization [facility] Address [address] [place] [address] Care Team Providers Name Role Phone Unavailable Primary Care Provider Unavailable Encounter Details Date Type Department Care Team Description 01/15/2022 Orders Only [facility] O f Darren Escalante MD [phone] [place] [address] [place], [place] [phone] (Wo rk) Social History Tobacco Use Types Packs/Day Years Used Date Smoking Tobacco: Never Assessed Sex Assigned at Date Recorded Not on file documented as of this encounter Plan of Treatment Not on filedocumented as of this encounter Procedures Procedure Name Priority Date/Time Associated Diagnosis Comme nts HEMATOLOGY Routine 01/15/2022 Results for thi s procedure are in the resu lts section. documented in this encounter Results (ABNORMAL) HEMATOLOGY (01/15/2022) Analysis Performed At Patho logist Time Signature Hemoglobin 10.6 (L) 14.0 - APS SPECTRA 18.0 g/dL [facility] Hemoglobin x 3 31.8 (L) 42.0 - APS SPECTRA 54.0 % [facility] Specimen (Source) Anatomical Collection Method Collection Time Re ceived Time Location / / Volume Laterality 01/15/2022 01/16/2022 7:31 AM CDT Narrative APS SPECTRA [facility] - 01/16/2022 Unless otherwise specified, test(s) performed at: [facility], [address] [place] [address], [place] [address] PSYCHIATRIC CNS: Rojas Kirkland M.D., Ph.D For any questions, please call customer service at FREQUENCY:OTHER Resulting Agency Comment Specimen source: Blood Darren Youssef MD LAB BLOOD ORDERABLES Performing Organization Address City/State/ZIP Code Phon e Number [facility]PS SPECTRA [facility] documented in this encounter Visit Diagnoses Not on filedocumented in this encounter
--- OUTSIDE RECORDS SUMMARY | 2022-04-17 14:28 | XMS_ITS | Encounter Summary ---
:1940 Author Organization [facility] Address [address] [place] [address] Care Team Providers Name Role Phone Unavailable Primary Care Provider Unavailable Encounter Details Date Type Department Care Team Description 2022 Treatment [facility] Darren Singh MD [address] [place], [place] [phone] (Wo rk) Social History Tobacco Use Types Packs/Day Years Used Date Smoking Tobacco: Never Assessed Sex Assigned at Date Recorded Not on file documented as of this encounter Miscellaneous Notes Dialysis Note - Darren Youssef MD - 2022 12:45 PM CDT Date: 2022 Patient Name: Korey Mackay : 1940 Chart #: [id number] Sex: M This patient was personally seen for a basic visit as part of routine weekly dialysis care. A reviewof the dialysis treatment, blood pressure, estimated dry weight and recent lab values was made. These were discussed with the patient and staff as necessary. Treatment Data for 2022 started at:10:52 AM Dialyzer: 180NRe Optiflux Na: 137 mEq/L Bicarb: 35 mEq/L Dialysate: 3.0 K, 2.5 Ca, 1.0 Mg, 100 Dextrose (G3251) Dialysate/Machine Temp (prescribed): 37 C Dialysate/Machine Temp (actual): 36.9 C BFR (prescribed): 500 BFR (actual): 450 Prescribed time: 03:30 EDW: 98.5 kg Access Type: Active (In Use):AVFistula-Standard/Left Forearm Pre Dialysis Vitals (for 2022 10:41 AM ) Pre BP (sit): 129/58 Pre Wt: 104.4 kg Temp: 98.2 F Post Dialysis Vitals (for 02/24/2022 2:14 PM ) Post BP (sit): 134/30 Post Wt: 101.6 kg Current Dialysis Vitals (for 2022 12:32 PM ) BP (sit): 111/56 AP(-) / BRICK WHEELER: 211/214 Pulse: 70 Chairside data as of 2022 12:32 PM Last 3 Treatments 02/24/2022 02/21/2022 02/19/2022 EDW (kg) 98.5 98.5 98.5 Weight Pre (kg) 105.9 104.7 105.4 Weight Post (kg) 101.6 101.5 101.7 Dialytic Weight Loss (kg) -4.3 -3.2 -3.7 EDW Deviation (kg) 3.1 3.0 3.2 BP Sit Pre 134/48 154/73 110/55 BP Sit Post 134/30 142/73 131/70 UF Rate (mL/kg/hr) 13 9 11 Prescribed BFR 500 500 500 Average Delivered BFR 450 510 510 Prescribed Treatment Time 03:30 03:30 03:30 Actual Treatment Time 03:29 03:30 03:30 Last 3 Values 11/15/2021 09/07/2021 08/13/2021 Access Flow 915 [id number] 1141 Treatment Medication Orders Medication Sig Start Date End Date Heparin Sodium (Porcine) 1,000 Units/mL Systemic 2000 units IVP Every Treatment 10/07/2021 10/06/2022 Iron Sucrose (Venofer) 50 mg IVP 1X Week 01/13/2022 01/05/2023 Mircera 50 mcg IVP Every 2 weeks 02/05/2022 02/04/2023 Vitamin D (Calcitriol) Oral 0.75 mcg ORAL Every Treatment 01/13/2022 01/12/2023 SENIOR MEDIA BUYER: Darren Youssef MD LOCATION: [phone] SCHEDULE: -W- 2nd Shift ACCESS: EDW: kg. DIALYZER: HD DURATION: NEEDLE SIZE: ANTICOAG: BATH: QB: ml/min QD: ml/min Subjective Tolerating dialysis well. 02/26: Stable treatments. BP adequate today. 02/19/22: [...] concerns with the treatments. 01/01: Had big bday green party for his , went well. He feels well. Got dentures fixed in [place], working better. No CP, SOB, edema. 12/18/21: Anxious to get bottom dentures fixed, going to [place] this month for this for expertise there. [...] edema, cramps. 10/30/21: Korey is back from [place] for the summer. He says things went [...] today, brings up his bad experience at [facility] again, concerned about new person doing his [...] had becerril taken out, says Urologist in [place] told him to have nurses at dialysis [...] until follow-up next month with Urology in [place]. Still with hematuria but low UOP he reports (70 mL this am from overnight). Hgb slow to improve in setting of infection. 11/07/20: Notes below from Dr. Sky. I am meeting patient today for first time. He transferred from [facility] - he was unhappy with staff [...] No sob eating well. Will go to [place] soon for the winter. 04/30/20. Pt feels well, denies sob, eating wlll, no new complaints. He decided against urology onsult for his gross hematuria. going to [place] on Thursday. Will show up there Thursday. 09/24/20 No new complaints at this time, Just back from [place]. 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 He now has two homes, one in [place] and one in [place]. He and his winter in [place]. They have one daughter that lives in [place], [place] and they have one son (who's had drug problems). Exam Respiratory - nl effort Cardiovascular Regular rate. Edema - No leg edema. Access - LUE AVF with small aneurysms Medication List Medication Sig Start Date Milo Low Dose Aspirin (aspirin) 81 mg tablet,delayed release (DR/EC) Take 1 tablet by mouth once a day Dialyvite (b complex 66-culfq-e-biot-zinc) [phone] pf-if-tzk-mg tablet Take 1 tablet by mouth once a day isosorbide mononitrate 20 mg tablet Take 1.5 tablet by mouth once a day Lantus U-100 Insulin (insulin glargine) 100 unit/mL [...] and no changes were made. BUN mg/dL 45 (02/12/22) 58 (01/08/22) 68 (12/11/21) 66 (11/06/21) 61 (10/16/21) UREA NITROGEN (MG/DL) IN SER/PLAS - POST DIALYSIS mg/dL 12 (02/12/22) 16 (01/08/22) 18 (12/11/21) 18 (11/06/21) 18 (10/16/21) URR % 73 (02/12/22) 72 (01/08/22) 74 (12/11/21) 73 (11/06/21) 70 (10/16/21) spKt/V Gotch 1.67 (02/12/22) 1.53 (01/08/22) 1.65 (12/11/21) 1.53 (11/06/21) 1.47 (10/16/21) eKdrt/V 1.41 (02/12/22) 1.3 (01/08/22) 1.39 (12/11/21) 1.3 (11/06/21) 1.25 (10/16/21) spKt/V (Daugirdas II) 1.5700 (02/12/22) 1.4800 (01/08/22) 1.5700 (12/11/21) 1.4900 (11/06/21) 1.4200 (10/16/21) HEMOGLOBIN (G/DL) IN BLOOD g/dL 10.4 (02/19/22) 10.9 (02/12/22) 11.0 (02/05/22) 11.0 (01/29/22) 10.5 (01/22/22) PLATELETS 1000/mcL 131 (02/12/22) 125 (01/08/22) 107 (12/11/21) 140 (11/06/21) 129 (10/07/21) IRON SATURATION % 45 (11/06/21) 53 (10/07/21) 25 (05/08/21) 34 (04/10/21) 45 (03/13/21) FERRITIN ng/mL 620 (12/11/21) 715 (11/20/21) 753 (10/07/21) 761 (03/13/21) 881 (03/06/21) ALBUMIN (G/DL) g/dL 3.8 (02/12/22) 4.0 (01/08/22) 4.0 (12/11/21) Sodium mEq/L 140 (02/12/22) 137 (01/08/22) 139 (12/11/21) POTASSIUM (MMOL/L) IN SER/PLAS mEq/L 4.1 (02/12/22) 3.8 (01/08/22) 3.9 (12/11/21) BICARBONATE (CO2) mEq/L 28 (02/12/22) 28 (01/08/22) 26 (12/11/21) 25 OH VITAMIN D ng/mL 71.8 (12/12/20) 62.5 (10/29/20) BUN/CREATININE (MASS RATIO) IN SER/PLAS 5.2 (02/12/22) 6.2 (01/08/22) 6.9 (12/11/21) CALCIUM mg/dL 8.9 (02/12/22) 8.9 (01/08/22) 8.5 (12/11/21) Calcium Phos Product 33 (02/12/22) 46 (01/08/22) 44 (12/11/21) CALCIUM (MG/DL) CORRECTED FOR ALBUMIN IN SER/PLAS mg/dL 9.1 (02/12/22) 8.9 (01/08/22) 8.5 (12/11/21) PHOSPHATE (MG/DL) IN SER/PLAS mg/dL 3.7 (02/12/22) 5.2 (01/08/22) 5.2 (12/11/21) IPTH pg/mL 329 (02/12/22) 460 (01/08/22) 699 (12/11/21) Vascular Access Assessment: Type of access: Fistula Surgeon - Urena Staff and patient report access is working well. Impression and Plan Stable on dialysis No changes made today Darren Youssef MD [ Signed And locked electronically On 2022 at 12:46:00 PM ] Transcribed: Darren Youssef ( 2022 ) documented in this encounter Plan of Treatment Not on filedocumented as of this encounter Visit Diagnoses Not on filedocumented in this encounter
--- OUTSIDE RECORDS SUMMARY | 2022-04-17 14:28 | XMS_ITS | Encounter Summary ---
:1940 Author Organization [facility] Address [address] [place] [address] Care Team Providers Name Role Phone Unavailable Primary Care Provider Unavailable Encounter Details Date Type Department Care Team Description 01/22/2022 Orders Only [facility] O f Darren Escalante MD [address] [place] [address] [place], [place] [phone] (Wo rk) Social History Tobacco Use Types Packs/Day Years Used Date Smoking Tobacco: Never Assessed Sex Assigned at Date Recorded Not on file documented as of this encounter Plan of Treatment Not on filedocumented as of this encounter Procedures Procedure Name Priority Date/Time Associated Diagnosis Comme nts HEMATOLOGY Routine 01/22/2022 Results for thi s procedure are in the resu lts section. documented in this encounter Results (ABNORMAL) HEMATOLOGY (01/22/2022) Analysis Performed At Patho logist Time Signature Hemoglobin 10.5 (L) 14.0 - APS SPECTRA 18.0 g/dL [facility] Hemoglobin x 3 31.5 (L) 42.0 - APS SPECTRA 54.0 % [facility] Specimen (Source) Anatomical Collection Method Collection Time Re ceived Time Location / / Volume Laterality 01/22/2022 01/23/2022 7:44 AM CDT Narrative [facility]RA [facility] - 01/23/2022 Unless otherwise specified, test(s) performed at: [facility], [address] [place] [address], [place] [address] PROPERTY APPRAISER: Rojas Kirkland M.D., Ph.D For any questions, please call customer service at FREQUENCY:OTHER Resulting Agency Comment Specimen source: Blood Darren Youssef MD LAB BLOOD ORDERABLES Performing Organization Address City/State/ZIP Code Phon e Number [facility] documented in this encounter Visit Diagnoses Not on filedocumented in this encounter
--- OUTSIDE RECORDS SUMMARY | 2022-04-17 14:28 | XMS_ITS | Encounter Summary ---
:1940 Author Organization [facility] Address [address] [place] [address] Care Team Providers Name Role Phone Unavailable Primary Care Provider Unavailable Encounter Details Date Type Department Care Team Description 03/19/2022 Treatment [facility] Darren Singh MD [address] [place] [address] [place], [place] [phone] (Wo rk) Social History Tobacco Use Types Packs/Day Years Used Date Smoking Tobacco: Never Assessed Sex Assigned at Date Recorded Not on file documented as of this encounter Miscellaneous Notes External Note - Darren Youssef MD - 03/19/2022 2:53 PM CDT Date: Mar 19, 2022 Patient Name: Korey Mackay : 1940 Chart #: [id number] Sex: M Problem List Problem ICD9 ICD10 Type 2 diabetes mellitus 250.00 E11.9 End [...] V45.01 Z95.0 Chronic atrial fibrillation 427.31 I48.20 Darren Youssef MD [ Signed And locked electronically On 03/19/2022 at 01:53:28 PM ] Transcribed: Darren Youssef MD ( 03/19/2022 ) Dialysis Note - Darren Youssef MD - 03/19/2022 1:53 PM CDT Date: Mar 19, 2022 Patient Name: Korey Mackay : 1940 Chart #: [id number] Sex: M This patient was personally seen for a complete visit as part of routine monthly dialysis care. A review of the dialysis treatment, blood pressure, estimated dry weight and recent lab values was made. These were discussed with the patient and staff as necessary. Treatment Data for 03/19/2022 started at:10:52 AM Dialyzer: 180NRe Optiflux Na: 137 mEq/L Bicarb: 35 mEq/L Dialysate: 3.0 K, 2.5 Ca, 1.0 Mg, 100 Dextrose (G3251) Dialysate/Machine Temp (prescribed): 37 C Dialysate/Machine Temp (actual): 36.5 C BFR (prescribed): 500 BFR (actual): 500 Prescribed time: 03:30 EDW: 98.5 kg Access Type: Active (In Use):AVFistula-Standard/Left Forearm Pre Dialysis Vitals (for 03/19/2022 10:52 AM ) Pre BP (sit): 130/62 Pre Wt: 105.4 kg Temp: 98.4 F Post Dialysis Vitals (for 03/17/2022 2:23 PM ) Post BP (sit): 108/55 Post Wt: 100.9 kg Current Dialysis Vitals (for 03/19/2022 11:41 AM ) BP (sit): 115/54 AP(-) / STRATEGIC PLANNING SPECIALIST: 225/245 Pulse: 69 Chairside data as of 03/19/2022 11:41 AM Last 3 Treatments 03/17/2022 03/14/2022 03/12/2022 EDW (kg) 98.5 98.5 98.5 Weight Pre (kg) 104.3 104.4 105.5 Weight Post (kg) 100.9 100.9 101.1 Dialytic Weight Loss (kg) -3.4 -3.5 -4.4 EDW Deviation (kg) 2.4 2.4 2.6 BP Sit Pre 141/70 101/57 111/57 BP Sit Post 108/55 110/59 135/68 UF Rate (mL/kg/hr) 10 10 13 Prescribed BFR 500 500 500 Average Delivered BFR 500 440 460 Prescribed Treatment Time 03:30 03:30 03:30 Actual Treatment Time 03:30 03:31 03:32 Last 3 Values 11/15/2021 09/07/2021 08/13/2021 Access Flow [id number] CIVIL RIGHTS INVESTIGATOR: Darren Youssef MD LOCATION: [phone] SCHEDULE: - 2nd Shift EDW: kg. DIALYZER: HD DURATION: NEEDLE SIZE: ANTICOAG: BATH: QB: ml/min QD: ml/min Subjective Tolerating dialysis well. 03/19/22: He is doing well on dialysis, [...] with the treatments. 01/01: Had big bday democrat for his , went well. He feels well. Got dentures fixed in [place], working better. No CP, SOB, edema. 12/18/21: Anxious to get bottom dentures fixed, going to [place] this month for this for expertise there. [...] edema, cramps. 10/30/21: Korey is back from [place] for the summer. He says things went well there. He has no concerns today, feels things are going well, not using clamps on access anymore and less bruising and access working well. He denies CP, SOB, edema. 05/22/21: He is upset about lack of good times at HD unit in [place]. No new symptoms. Feels well today otherwise. Should get at or very close to dry weight today. Labs reviewed with him, overall excellent. 04/24/21: Many complaints today, brings up his bad experience at [facility] again, concerned about new person doing his [...] had becerril taken out, says Urologist in [place] told him to have nurses at dialysis [...] until follow-up next month with Urology in [place]. Still with hematuria but low UOP he reports (70 mL this am from overnight). Hgb slow to improve in setting of infection. 11/07/20: Notes below from Dr. Sky. I am meeting patient today for first time. He transferred from [facility] - he was unhappy with staff [...] No sob eating well. Will go to [place] soon for the winter. 04/30/20. Pt feels well, denies sob, eating wlll, no new complaints. He decided against urology onsult for his gross hematuria. going to [place] on Thursday. Will show up there Thursday. 09/24/20 No new complaints at this time, Just back from [place]. Says he didn't get as many cramps in [place] Dry weight is a bit higher than [...] Feels ok today. Denies sob. Advanced Practitioner Subjective Review of Systems None reported. 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 He now has two homes, one in [place] and one in [place]. He and his winter in [place]. They have one daughter that lives in [place], [place] and they have one son (who's had drug problems). Exam Respiratory - Clear to auscultation bilaterally. nl effort Cardiovascular - Regular rate. Regular rhythm. No murmur heard. Edema - 1+ leg edema. worse Access - LUE AVF with 2 small aneurysm, excellent t/b Neuropathy with no feeling in feet Medication List Medication Sig Start Date Milo Low Dose Aspirin (aspirin) 81 mg tablet,delayed release (DR/EC) Take 1 tablet by mouth once a day Dialyvite (b complex 33-nffpl-c-biot-zinc) [id number] ca-kf-efd-mg tablet Take 1 tablet by mouth once [...] Medications reviewed and no changes were made. Treatment and Adequacy Assessment BUN mg/dL 54 (03/12/22) 45 (02/12/22) 58 [...] (02/12/22) 1.4800 (01/08/22) 1.5700 (12/11/21) 1.4900 (11/06/21) Dialysis is adequate. Achieves prescribed time - Yes Achieves prescribed frequency - Yes Continue current prescription. Vascular Access Assessment Type of access: Fistula Surgeon - Urena Staff and patient report access is working well. Anemia Assessment HEMOGLOBIN (G/DL) IN BLOOD g/dL 10.7 (03/12/22) 11.7 (03/05/22) 11.0 (02/26/22) 10.4 (02/19/22) 10.9 (02/12/22) PLATELETS 1000/mcL 102 (03/12/22) 131 (02/12/22) 125 (01/08/22) 107 (12/11/21) 140 (11/06/21) IRON SATURATION % 45 (11/06/21) 53 (10/07/21) 25 (05/08/21) 34 (04/10/21) FERRITIN ng/mL 965 (03/12/22) 620 (12/11/21) 715 (11/20/21) 753 (10/07/21) Hemoglobin is at goal. Iron Saturation is at goal. Ferritin is at goal. Will adjust MISTY and intravenous iron per protocol. Nutritional and Metabolic Assessment ALBUMIN (G/DL) g/dL 3.8 (03/12/22) 3.8 (02/12/22) 4.0 (01/08/22) 4.0 (12/11/21) 3.9 (11/06/21) Sodium mEq/L 140 (03/12/22) 140 (02/12/22) 137 (01/08/22) 139 (12/11/21) 141 (11/06/21) POTASSIUM (MMOL/L) IN SER/PLAS mEq/L 5.3 (03/12/22) 4.1 (02/12/22) 3.8 (01/08/22) 3.9 (12/11/21) 3.9 (11/06/21) BICARBONATE (CO2) mEq/L 24 (03/12/22) 28 (02/12/22) 28 (01/08/22) 26 (12/11/21) 26 (11/06/21) Albumin is below goal. Encourage high-biological value protein intake. Oral Nutritional Supplement program. Potassium is at goal. Bicarbonate is at goal. Continue same Bone and Mineral Metabolism Assessment CALCIUM mg/dL 9.1 (03/12/22) 8.9 (02/12/22) 8.9 (01/08/22) 8.5 (12/11/21) 9.2 (11/06/21) CALCIUM (MG/DL) CORRECTED FOR ALBUMIN IN SER/PLAS mg/dL 9.3 (03/12/22) 9.1 (02/12/22) 8.9 (01/08/22) 8.5 (12/11/21) 9.3 (11/06/21) PHOSPHATE (MG/DL) IN SER/PLAS mg/dL 3.8 (03/12/22) 3.7 (02/12/22) 5.2 (01/08/22) 5.2 (12/11/21) 3.6 (11/06/21) CALCIUM PHOSPHORUS PRODUCT, COR 35 (03/12/22) 34 (02/12/22) 46 (01/08/22) 44 (12/11/21) 33 (11/06/21) IPTH pg/mL 400 (03/12/22) 329 (02/12/22) 460 (01/08/22) 699 (12/11/21) 384 (10/07/21) Corrected Calcium is at goal. Phosphorous is at goal. Intact PTH is at goal. Overcoiler will adjust binders and vitamin D per protocol and continue to provide dietary education. Cardiovascular Assessment Blood pressures reviewed and are acceptable. Intradialytic weight gains are too high. Estimated dry weight is appropriate. Continue same cardiovascular medications. Discussed need for fluid restriction and lower IDGW's, discussed in detail today including risk of pulmonary edema Transplant Status: Patient is not a candidate. 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 He has non-painful neuropathy, gabapentin not necessary at this time. Foot check completed here. Ischemic cardiomyopathy with chronic systolic heart failure and CAD with prior CABG: saw cardiology last 02/2022 and follow-up q6 months to 1 year. He has no cardiac symptoms. He is on imdur and ASA butno beta fartun (hx heart block) or ACEI/ARB (BP too low). Monitor for cardiac symptoms. HTN: BP at goal, no changes made. Monitor BP on dialysis treatments. 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 Not on warfarin perpatient choice. Hx of bladder outlet obstruction: making less urine, infrequent visits now to get straight cath in clinic. 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
--- OUTSIDE RECORDS SUMMARY | 2022-04-17 14:28 | XMS_ITS | Encounter Summary ---
:1940 Author Organization [facility] Address [address] [place] [address] Care Team Providers Name Role Phone Unavailable Primary Care Provider Unavailable Encounter Details Date Type Department Care Team Description 04/09/2022 Orders Only [facility] O f Darren Escalante MD [address] [place] [address] [place], [place] [phone] (Wo rk) Social History Tobacco Use Types Packs/Day Years Used Date Smoking Tobacco: Never Assessed Sex Assigned at Date Recorded Not on file documented as of this encounter Plan of Treatment Not on filedocumented as of this encounter Procedures Procedure Name Priority Date/Time Associated Diagnosis Comme nts HD KINETICS Routine 04/09/2022 Results for thi [...] this encounter Results [facility]ra [place] Lab Results (04/09/2022) P athologist Signature spKt/V Gotch 1.73 [place] [...] Address City/State/ZIP Code Phon e Number [place] HD KINETICS (04/09/2022) P athologist Signature % Urea 76 65 - 80 % [facility] Reduction [facility] Specimen (Source) Anatomical Collection Method Collection Time Re ceived Time Location / / Volume Laterality 04/09/2022 04/10/2022 2:58 AM CDT Resulting Agency Comment Specimen source: Plasma Darren Youssef MD LAB BLOOD ORDERABLES Performing Organization Address City/[facility]/ZIP Code Phon e Number [facility] POST CHEMISTRY (04/09/2022) athologist Signature BUN Post 16 6 - 19 [facility] Dialysis mg/dL [facility] Specimen (Source) Anatomical Collection Method Collection Time Re ceived Time Location / / Volume Laterality 04/09/2022 04/10/2022 2:58 AM CDT Narrative [facility] - 04/10/2022 Unless otherwise specified, test(s) performed at: [facility], [address] [place] [address], [place] [address] [place] R[place]EMAN: Rojas Kirkland M.D., Ph.D For any questions, please call customer service at FREQUENCY:MONTHLY Resulting Agency Comment Specimen source: Plasma Darren Youssef MD LAB BLOOD ORDERABLES Performing Organization Address City/[facility]/ZIP Code Phon e Number [facility] (ABNORMAL) Spectrae Chemistry (04/09/2022) [facility] gist Method Time Signature BUN 66 (H) [...] 04/10/2022 Unless otherwise specified, test(s) performed at: [facility], [address] [place] [address], [place] [address] [place] R[place]EMAN: Rojas Kirkland M.D., Ph.D For any questions, please call customer service at FREQUENCY:MONTHLY Resulting Agency Comment Specimen source: Serum Darren Youssef MD LAB BLOOD ORDERABLES Performing Organization Address City/State/ZIP Code Phon e Number [facility] (ABNORMAL) HEMATOLOGY (04/09/2022) Analysis Performed At Patho logist Time Signature WBC 5.44 4.80 - [facility] 10.80 [facility] 1000/mcL RBC 3.19 (L) 4.70 - [facility] 6.10 [facility] mill/mcL Hemoglobin 10.3 (L) 14.0 - [facility] 18.0 g/dL [facility] Hemoglobin x 3 30.9 (L) 42.0 - [facility] 54.0 % [facility] Hematocrit 30.7 (L) 42.0 - [facility] 52.0 % [facility] MCV 96 80 - 100 [facility] fl [facility] MCH 32.3 (H) 27.0 - [facility] 31.0 pg [facility] MCHC 33.5 30.0 - [facility] 36.0 g/dL [facility] RDW 14.2 11.5 - [facility] 14.5 % [facility] Platelets 176 130 - 400 [facility] 1000/mcL [facility] Specimen (Source) Anatomical Collection Method Collection Time Re ceived Time Location / / Volume Laterality 04/09/2022 04/10/2022 2:48 AM CDT Narrative [facility] - 04/10/2022 Unless otherwise specified, test(s) performed at: [facility], [address] [place] [address], [place] [address] [place] R[place]AN: Rojas Kirkland M.D., Ph.D For any questions, please call customer service at FREQUENCY:MONTHLY Resulting Agency Comment Specimen source: Blood Darren Youssef MD LAB BLOOD ORDERABLES Performing Organization Address City/State/ZIP Code Phon e Number [facility] IMMUNO CHEMISTRY (04/09/2022) P athologist Signature Hep B Surface Negative Negative [...] refer to MMWR Decemb 2004/Vol.54 (No. 16); 1-23, and for healthcare workers, refer to MMWR [...] 04/09/2022 04/10/2022 2:40 AM CDT Narrative [facility]PS [facility] - 04/10/2022 Unless otherwise specified, test(s) performed at: [facility], [address] [place] [address], [place] [address] [place] ROUTEMAN: Rojas Kirkland M.D., Ph.D For any questions, please call customer service at FREQUENCY:MONTHLY Resulting Agency Comment Specimen source: Plasma Darren Youssef MD LAB BLOOD ORDERABLES Performing Organization Address City/State/ZIP Code Phon e Number [facility]PS [employer] [facility] documented in this encounter Visit Diagnoses Not on filedocumented in this encounter
--- OUTSIDE RECORDS SUMMARY | 2022-04-17 14:28 | XMS_ITS | Encounter Summary ---
:1940 Author Organization [facility] Address [address] [place] [address] Care Team Providers Name Role Phone Unavailable Primary Care Provider Unavailable Encounter Details Date Type Department Care Team Description 03/05/2022 Orders Only [facility] O f Darren Escalante MD [phone] [place] [address] [place], [place] [phone] (Wo rk) Social History Tobacco Use Types Packs/Day Years Used Date Smoking Tobacco: Never Assessed Sex Assigned at Date Recorded Not on file documented as of this encounter Plan of Treatment Not on filedocumented as of this encounter Procedures Procedure Name Priority Date/Time Associated Diagnosis Comme nts HEMATOLOGY Routine 03/05/2022 Results for thi s procedure are in the resu lts section. documented in this encounter Results (ABNORMAL) HEMATOLOGY (03/05/2022) Analysis Performed At Patho logist Time Signature Hemoglobin 11.7 (L) 14.0 - [facility] 18.0 g/dL [facility] Hemoglobin x 3 35.1 (L) 42.0 - [facility] 54.0 % [facility] Specimen (Source) Anatomical Collection Method Collection Time Re ceived Time Location / / Volume Laterality 03/05/2022 03/06/2022 6:49 AM CDT Narrative [facility] - 03/06/2022 Unless otherwise specified, test(s) performed at: [facility], [address] [place] [address], [place] [address] CREDIT BALANCE SPECIALIST: Rojas Kirkland M.D., Ph.D For any questions, please call customer service at FREQUENCY:OTHER Resulting Agency Comment Specimen source: Blood Darren Youssef MD LAB BLOOD ORDERABLES Performing Organization Address City/State/ZIP Code Phon e Number [facility] documented in this encounter Visit Diagnoses Not on filedocumented in this encounter
--- OUTSIDE RECORDS SUMMARY | 2022-04-17 14:28 | XMS_ITS | Encounter Summary ---
:1940 Author Organization [facility] Address [address] [place] [address] Care Team Providers Name Role Phone Unavailable Primary Care Provider Unavailable Encounter Details Date Type Department Care Team Description 02/19/2022 Treatment [facility] Darren Singh MD [address] [place] [address] [place], [place] [phone] (Wo rk) Social History Tobacco Use Types Packs/Day Years Used Date Smoking Tobacco: Never Assessed Sex Assigned at Date Recorded Not on file documented as of this encounter Miscellaneous Notes Dialysis Note - Darren Youssef MD - 02/19/2022 1:38 PM CDT Date: Feb 19, 2022 Patient Name: Korey Mackay : 1940 Chart #: [id number] Sex: M This patient was personally seen for a complete visit as part of routine monthly dialysis care. A review of the dialysis treatment, blood pressure, estimated dry weight and recent lab values was made. These were discussed with the patient and staff as necessary. Treatment Data for 02/19/2022 started at:10:55 AM Dialyzer: 180NRe Optiflux Na: 137 mEq/L Bicarb: 35 mEq/L Dialysate: 3.0 K, 2.5 Ca, 1.0 Mg, 100 Dextrose (G3251) Dialysate/Machine Temp (prescribed): 37 C Dialysate/Machine Temp (actual): 37 C BFR (prescribed): 500 BFR (actual): 500 Prescribed time: 03:30 EDW: 98.5 kg Access Type: Active (In Use):AVFistula-Standard/Left Forearm Pre Dialysis Vitals (for 02/19/2022 10:49 AM ) Pre BP (sit): 110/55 Pre Wt: 105.4 kg Temp: 98.8 F Post Dialysis Vitals (for 02/17/2022 2:28 PM ) Post BP (sit): 137/69 Post Wt: 101.4 kg Current Dialysis Vitals (for 02/19/2022 1:34 PM ) BP (sit): 116/64 AP(-) / METAL MOULDER: 230/259 Pulse: 70 Chairside data as of 02/19/2022 1:34 PM Last 3 Treatments 02/17/2022 02/14/2022 02/12/2022 EDW (kg) 98.5 98.5 98.5 Weight Pre (kg) 104.8 104.4 105.9 Weight Post (kg) 101.4 100.1 101.5 Dialytic Weight Loss (kg) -3.4 -4.3 -4.4 EDW Deviation (kg) 2.9 1.6 3.0 BP Sit Pre 124/60 121/63 103/45 BP Sit Post 137/69 129/71 102/30 UF Rate (mL/kg/hr) 10 12 13 Prescribed BFR 500 500 500 Average Delivered BFR 510 460 440 Prescribed Treatment Time 03:30 03:30 03:30 Actual Treatment Time 03:31 03:31 03:31 Last 3 Values 11/15/2021 09/07/2021 08/13/2021 Access Flow 706 [id number] 1148 Treatment Medication Orders Medication Sig Start Date End Date Heparin Sodium (Porcine) 1,000 Units/mL Systemic 2000 units IVP Every Treatment 10/07/2021 10/06/2022 Iron Sucrose (Venofer) 50 mg IVP 1X Week 01/13/2022 01/05/2023 Mircera 50 mcg IVP Every 2 weeks 02/05/2022 02/04/2023 Vitamin D (Calcitriol) Oral 0.75 mcg ORAL Every Treatment 01/13/2022 01/12/2023 FLOW MATCH SOFA CUTTER: Darren Youssef MD LOCATION: [place] [phone] SCHEDULE: M-W-F 2nd Shift EDW: kg. DIALYZER: HD DURATION: NEEDLE SIZE: ANTICOAG: BATH: QB: ml/min QD: ml/min Subjective No new complaints. Tolerating dialysis well. 02/19/22: Feels well, no concerns with dialysis [...] He feels well. Got dentures fixed in [place], working better. No CP, SOB, edema. 12/18/21: Anxious to get bottom dentures fixed, going to [place] this month for this for expertise there. [...] edema, cramps. 10/30/21: Korey is back from [place] for the summer. He says things went well there. He has no concerns today, feels things are going well, not using clamps on access anymore and less bruising and access working well. He denies CP, SOB, edema. 05/22/21: He is upset about lack of good times at HD unit in [place]. No new symptoms. Feels well today otherwise. Should get at or very close to dry weight today. Labs reviewed with him, overall excellent. 04/24/21: Many complaints today, brings up his bad experience at [facility] again, concerned about new person doing his [...] and thus going in for appt at Urolog to get straight cath. He is making [...] had becerril taken out, says Urologist in [place] told him to have nurses at dialysis [...] last few days, TOVplanned next week at Urolog he says. 11/28: Doing well, no issues here with dialysis or his access and feels things are much smoother herethan previous unit. He has no concerns. He has becerril catheter until follow-up next month with Urology in [place]. Still with hematuria but low UOP he reports (70 mL this am from overnight). Hgb slow to improve in setting of infection. 11/07/20: Notes below from Dr. Sky. I am meeting patient today for first time. He transferred from [facility] - he was unhappy with staff there [...] No sob eating well. Will go to [place] soon for the winter. 04/30/20. Pt feels well, denies sob, eating wlll, no new complaints. He decided against urology onsult for his gross hematuria. going to [place] on Thursday. Will show up there Thursday. 09/24/20 No new complaints at this time, Just back from [place]. 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 He now has two homes, one in [place] and one in [place]. He and his winter in [place]. They have one daughter that lives in [place], [place] and they have one son (who's had drug problems). Exam Respiratory - Clear to auscultation bilaterally. Cardiovascular - Regular rate. Regular rhythm. No murmur heard. Edema - Trace edema. 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 Treatment and Adequacy Assessment BUN mg/dL 45 (02/12/22) 58 (01/08/22) 68 [...] (01/08/22) 1.5700 (12/11/21) 1.4900 (11/06/21) 1.4200 (10/16/21) Dialysis is adequate. Achieves prescribed time - Yes Achieves prescribed frequency - Yes Continue current prescription. Vascular Access Assessment Type of access: Fistula Surgeon - [place] Staff and patient report access is working well. Anemia Assessment HEMOGLOBIN (G/DL) IN BLOOD g/dL 10.9 (02/12/22) 11.0 (02/05/22) 11.0 (01/29/22) 10.5 (01/22/22) 10.6 (01/15/22) PLATELETS 1000/mcL 131 (02/12/22) 125 (01/08/22) 107 (12/11/21) 140 (11/06/21) 129 (10/07/21) IRON SATURATION % 45 (11/06/21) 53 (10/07/21) 25 (05/08/21) 34 (04/10/21) 45 (03/13/21) FERRITIN ng/mL 620 (12/11/21) 715 (11/20/21) 753 (10/07/21) 761 (03/13/21) 881 (03/06/21) Hemoglobin is at goal. Iron Saturation is at goal. Ferritin is at goal. Will adjust MISTY and intravenous iron per protocol. Nutritional and Metabolic Assessment ALBUMIN (G/DL) g/dL 3.8 (02/12/22) 4.0 (01/08/22) 4.0 (12/11/21) 3.9 (11/06/21) 3.8 (10/07/21) Sodium mEq/L 140 (02/12/22) 137 (01/08/22) 139 (12/11/21) 141 (11/06/21) 139 (10/07/21) POTASSIUM (MMOL/L) IN SER/PLAS mEq/L 4.1 (02/12/22) 3.8 (01/08/22) 3.9 (12/11/21) 3.9 (11/06/21) 3.9 (10/07/21) BICARBONATE (CO2) mEq/L 28 (02/12/22) 28 (01/08/22) 26 (12/11/21) 26 (11/06/21) 18 (10/07/21) Albumin is below goal. Encourage high-biological value protein intake. Oral Nutritional Supplement program. Potassium is at goal. Bicarbonate is at goal. Continue same Bone and Mineral Metabolism Assessment CALCIUM mg/dL 8.9 (02/12/22) 8.9 (01/08/22) 8.5 (12/11/21) 9.2 (11/06/21) 8.4 (10/07/21) CALCIUM (MG/DL) CORRECTED FOR ALBUMIN IN SER/PLAS mg/dL 9.1 (02/12/22) 8.9 (01/08/22) 8.5 (12/11/21) 9.3 (11/06/21) 8.6 (10/07/21) PHOSPHATE (MG/DL) IN SER/PLAS mg/dL 3.7 (02/12/22) 5.2 (01/08/22) 5.2 (12/11/21) 3.6 (11/06/21) 3.8 (10/07/21) CALCIUM PHOSPHORUS PRODUCT, COR 34 (02/12/22) 46 (01/08/22) 44 (12/11/21) 33 (11/06/21) 33 (10/07/21) IPTH pg/mL 329 (02/12/22) 460 (01/08/22) 699 (12/11/21) 384 (10/07/21) 176 (03/13/21) Corrected Calcium is at goal. Phosphorous is at goal. Intact PTH is at goal. Director Of Corporate Strategy will adjust binders and vitamin D per protocol and continue to provide dietary education. Cardiovascular Assessment Blood pressures reviewed and are acceptable. Intradialytic weight gains are too high. Estimated dry weight is appropriate. Continue same cardiovascular medications. Discussed need for fluid restriction and lower IDGW's Transplant Status: Patient is not a candidate. Age >80 and co-morbidities Resuscitation Status Stable dialysis, no changes today Discussed need for fluid restriction and lower IDGW's Darren Youssef MD [ Signed And locked electronically On 02/19/2022 at 01:39:55 PM ] Transcribed: Darren Youssef ( 02/19/2022 ) documented in this encounter Plan of Treatment Not on filedocumented as of this encounter Visit Diagnoses Not on filedocumented in this encounter
--- OUTSIDE RECORDS SUMMARY | 2022-04-17 14:28 | XMS_ITS | Encounter Summary ---
:1940 Author Organization [facility] Address [address] [place] [address] Care Team Providers Name Role Phone Unavailable Primary Care Provider Unavailable Encounter Details Date Type Department Care Team Description 04/02/2022 Orders Only [facility] O f Darren Escalante MD [address] [place] [address] [place], [place] [phone] (Wo rk) Social History Tobacco Use Types Packs/Day Years Used Date Smoking Tobacco: Never Assessed Sex Assigned at Date Recorded Not on file documented as of this encounter Plan of Treatment Not on filedocumented as of this encounter Procedures Procedure Name Priority Date/Time Associated Diagnosis Comme nts HEMATOLOGY Routine 04/02/2022 Results for thi s procedure are in the resu lts section. documented in this encounter Results (ABNORMAL) HEMATOLOGY (04/02/2022) Analysis Performed At Patho logist Time Signature Hemoglobin 10.0 (L) 14.0 - [facility] 18.0 g/dL [facility] Hemoglobin x 3 30.0 (L) 42.0 - [facility] 54.0 % [facility] Specimen (Source) Anatomical Collection Method Collection Time Re ceived Time Location / / Volume Laterality 04/02/2022 04/03/2022 3:20 AM CDT Narrative [facility] - 04/03/2022 Unless otherwise specified, test(s) performed at: [facility], [address] [place] [address], [place] [address] BRACE MAKER: Rojas Kirkland M.D., Ph.D For any questions, please call customer service at FREQUENCY:OTHER Resulting Agency Comment Specimen source: Blood Darren Youssef MD LAB BLOOD ORDERABLES Performing Organization Address City/State/ZIP Code Phon e Number [facility] documented in this encounter Visit Diagnoses Not on filedocumented in this encounter
--- OUTSIDE RECORDS SUMMARY | 2022-04-17 14:28 | XMS_ITS | Encounter Summary ---
:1940 Author Organization [facility] Address [address] [place] [address] Care Team Providers Name Role Phone Unavailable Primary Care Provider Unavailable Encounter Details Date Type Department Care Team Description 01/29/2022 Treatment [facility] Darren Singh MD [address] [place] [address] [place], [place] [phone] (Wo rk) Social History Tobacco Use Types Packs/Day Years Used Date Smoking Tobacco: Never Assessed Sex Assigned at Date Recorded Not on file documented as of this encounter Miscellaneous Notes Dialysis Note - Darren Youssef MD - 01/29/2022 11:23 AM CDT Date: Jan 29, 2022 Patient Name: Korey Mackay : 1940 Chart #: [id number] Sex: M This patient was personally seen for a complete visit as part of routine monthly dialysis care. A review of the dialysis treatment, blood pressure, estimated dry weight and recent lab values was made. These were discussed with the patient and staff as necessary. Treatment Data for 01/29/2022 started at:10:57 AM Dialyzer: 180NRe Optiflux Na: 137 mEq/L Bicarb: 35 mEq/L Dialysate: 3.0 K, 2.5 Ca, 1.0 Mg, 100 Dextrose (G3251) Dialysate/Machine Temp (prescribed): 37 C Dialysate/Machine Temp (actual): 36.6 C BFR (prescribed): 500 BFR (actual): 500 Prescribed time: 03:30 EDW: 98.5 kg Access Type: Active (In Use):AVFistula-Standard/Left Forearm Pre Dialysis Vitals (for 01/29/2022 10:49 AM ) Pre BP (sit): 97/56 Pre Wt: 101.8 kg Temp: 97.8 F Post Dialysis Vitals (for 01/27/2022 2:43 PM ) Post BP (sit): 108/64 Post Wt: 98.6 kg Current Dialysis Vitals (for 01/29/2022 10:58 AM ) BP (sit): 97/56 AP(-) / SPUD DRILLER: 214/250 Pulse: 69 Chairside data as of 01/29/2022 10:58 AM Last 3 Treatments 01/27/2022 01/24/2022 01/22/2022 EDW (kg) 98.5 98.5 98.5 Weight Pre (kg) 102.6 102.6 102.5 Weight Post (kg) 98.6 99.2 99 Dialytic Weight Loss (kg) -4 -3.4 -3.5 EDW Deviation (kg) 0.1 0.7 0.5 BP Sit Pre 127/59 92/80 117/49 BP Sit Post 108/64 123/65 93/52 UF Rate (mL/kg/hr) 12 10 10 Prescribed BFR 500 500 500 Average Delivered BFR 450 510 510 Prescribed Treatment Time 03:30 03:30 03:30 Actual Treatment Time 03: 03:30 03:30 Last 3 Values 11/15/2021 09/07/2021 08/13/2021 Access Flow 803 [id number] 1142 Treatment Medication Orders Medication Sig Start Date End Date Heparin Sodium (Porcine) 1,000 Units/mL Systemic 2000 units IVP Every Treatment 10/07/2021 10/06/2022 Iron Sucrose (Venofer) 50 mg IVP 1X Week 01/13/2022 01/05/2023 Mircera 60 mcg IVP Every 2 weeks 01/22/2022 01/21/2023 Vitamin D (Calcitriol) Oral 0.75 mcg ORAL Every Treatment 01/13/2022 01/12/2023 KEY PERSON: Darren Youssef MD LOCATION: [place] [phone] SCHEDULE: M-W-F 2nd Shift EDW: kg. DIALYZER: HD DURATION: NEEDLE SIZE: ANTICOAG: BATH: QB: ml/min QD: ml/min Subjective No new complaints. Tolerating dialysis well. 01/29/22: He asks about monitoring his blood [...] with the treatments. 01/01: Had big bday libertarian for his , went well. He feels well. Got dentures fixed in [place], working better. No CP, SOB, edema. 12/18/21: Anxious to get bottom dentures fixed, going to [place] this month for this for expertise there. [...] edema, cramps. 10/30/21: Korey is back from [place] for the summer. He says things went well there. He has no concerns today, feels things are going well, not using clamps on access anymore and less bruising and access working well. He denies CP, SOB, edema. 05/22/21: He is upset about lack of good times at HD unit in [place]. No new symptoms. Feels well today otherwise. Should get at or very close to dry weight today. Labs reviewed with him, overall excellent. 04/24/21: Many complaints today, brings up his bad experience at [facility] again, concerned about new person doing [...] had becerril taken out, says Urologist in [place] told him to have nurses at dialysis [...] until follow-up next month with Urology in [place]. Still with hematuria but low UOP he reports (70 mL this am from overnight). Hgb slow to improve in setting of infection. 11/07/20: Notes below from Dr. Sky. I am meeting patient today for first time. He transferred from [facility] - he was unhappy with staff there [...] No sob eating well. Will go to [place] soon for the winter. 04/30/20. Pt feels well, denies sob, eating wlll, no new complaints. He decided against urology onsult for his gross hematuria. going to [place] on Thursday. Will show up there Thursday. 09/24/20 No new complaints at this time, Just back from [place]. 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 He now has two homes, one in [place] and one in [place]. He and his winter in [place]. They have one daughter that lives in [place], [place] and they have one son (who's had drug problems). Exam Respiratory - Clear to auscultation bilaterally. nl effort Cardiovascular - Regular rate. Regular rhythm. No murmur heard. Edema - No leg edema. 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 Treatment and Adequacy Assessment BUN mg/dL 58 (01/08/22) 68 (12/11/21) 66 (11/06/21) 61 (10/16/21) 81 (10/07/21) UREA NITROGEN (MG/DL) IN SER/PLAS - POST DIALYSIS mg/dL 16 (01/08/22) 18 (12/11/21) 18 (11/06/21) 18 (10/16/21) 28 (10/07/21) URR % 72 (01/08/22) 74 (12/11/21) 73 (11/06/21) 70 (10/16/21) 65 (10/07/21) spKt/V Gotch 1.53 (01/08/22) 1.65 (12/11/21) 1.53 (11/06/21) 1.47 (10/16/21) 1.47 (09/10/21) eKdrt/V 1.3 (01/08/22) 1.39 (12/11/21) 1.3 (11/06/21) 1.25 (10/16/21) 1.25 (09/10/21) spKt/V (Daugirdas II) 1.4800 (01/08/22) 1.5700 (12/11/21) 1.4900 (11/06/21) 1.4200 (10/16/21) 1.2500 (10/07/21) Dialysis is adequate. Achieves prescribed time - Yes Achieves prescribed frequency - Yes Continue current prescription. Vascular Access Assessment Type of access: Fistula Surgeon - [place] Staff and patient report access is working well. Anemia Assessment HEMOGLOBIN (G/DL) IN BLOOD g/dL 10.5 (01/22/22) 10.6 (01/15/22) 10.5 (01/08/22) 9.9 (01/01/22) 10.0 (12/25/21) PLATELETS 1000/mcL 125 (01/08/22) 107 (12/11/21) 140 (11/06/21) 129 (10/07/21) 149 (05/08/21) IRON SATURATION % 45 (11/06/21) 53 (10/07/21) 25 (05/08/21) 34 (04/10/21) 45 (03/13/21) FERRITIN ng/mL 620 (12/11/21) 715 (11/20/21) 753 (10/07/21) 761 (03/13/21) 881 (03/06/21) Hemoglobin is at goal. Iron Saturation is at goal. Ferritin is at goal. Will adjust MISTY and intravenous iron per protocol. Nutritional and Metabolic Assessment ALBUMIN (G/DL) g/dL 4.0 (01/08/22) 4.0 (12/11/21) 3.9 (11/06/21) 3.8 (10/07/21) 3.8 (05/08/21) Sodium mEq/L 137 (01/08/22) 139 (12/11/21) 141 (11/06/21) 139 (10/07/21) 140 (05/08/21) POTASSIUM (MMOL/L) IN SER/PLAS mEq/L 3.8 (01/08/22) 3.9 (12/11/21) 3.9 (11/06/21) 3.9 (10/07/21) 4.4 (05/08/21) BICARBONATE (CO2) mEq/L 28 (01/08/22) 26 (12/11/21) 26 (11/06/21) 18 (10/07/21) 24 (05/08/21) Albumin is at goal. Encourage high-biological value protein intake. Oral Nutritional Supplement program. Potassium is at goal. Bicarbonate is at goal. Continue same Bone and Mineral Metabolism Assessment CALCIUM mg/dL 8.9 (01/08/22) 8.5 (12/11/21) 9.2 (11/06/21) 8.4 (10/07/21) 9.0 (05/08/21) CALCIUM (MG/DL) CORRECTED FOR ALBUMIN IN SER/PLAS mg/dL 8.9 (01/08/22) 8.5 (12/11/21) 9.3 (11/06/21) 8.6 (10/07/21) 9.2 (05/08/21) PHOSPHATE (MG/DL) IN SER/PLAS mg/dL 5.2 (01/08/22) 5.2 (12/11/21) 3.6 (11/06/21) 3.8 (10/07/21) 4.1 (05/08/21) CALCIUM PHOSPHORUS PRODUCT, COR 46 (01/08/22) 44 (12/11/21) 33 (11/06/21) 33 (10/07/21) 38 (05/08/21) IPTH pg/mL 460 (01/08/22) 699 (12/11/21) 384 (10/07/21) 176 (03/13/21) Corrected Calcium is at goal. Phosphorous is at goal. Intact PTH is at goal. Stereo Map Plotter Operator will adjust binders and vitamin D per protocol and continue to provide dietary education. Cardiovascular Assessment Blood pressures reviewed and are acceptable. Intradialytic weight gains are appropriate. Estimated dry weight is appropriate. Continue same cardiovascular medications. Transplant Status: Patient is not a candidate. Age >80 and co-morbidities Resuscitation Status Stable dialysis, no changes today Darren Youssef MD [ Signed And locked electronically On 01/29/2022 at 11:25:38 AM ] Transcribed: Darren Youssef ( 01/29/2022 ) documented in this encounter Plan of Treatment Not on filedocumented as of this encounter Visit Diagnoses Not on filedocumented in this encounter
--- OUTSIDE RECORDS SUMMARY | 2022-04-17 14:28 | XMS_ITS | Encounter Summary ---
:1940 Author Organization [facility] Address [address] [place] [address] Care Team Providers Name Role Phone Unavailable Primary Care Provider Unavailable Encounter Details Date Type Department Care Team Description 2022 Orders Only [facility] O f Darren Escalante MD [address] [place] [address] [place], [place] [phone] (Wo rk) Social History Tobacco Use Types Packs/Day Years Used Date Smoking Tobacco: Never Assessed Sex Assigned at Date Recorded Not on file documented as of this encounter Plan of Treatment Not on filedocumented as of this encounter Procedures Procedure Name Priority Date/Time Associated Diagnosis Comme nts HEMATOLOGY Routine 2022 Results for thi s procedure are in the resu lts section. documented in this encounter Results (ABNORMAL) HEMATOLOGY (2022) Analysis Performed At Patho logist Time Signature Hemoglobin 11.0 (L) 14.0 - [facility] 18.0 g/dL [facility] Hemoglobin x 3 33.0 (L) 42.0 - [facility] 54.0 % [facility] Specimen (Source) Anatomical Collection Method Collection Time Re ceived Time Location / / Volume Laterality 2022 02/27/2022 6:56 PM CDT Narrative [facility] - 02/27/2022 Unless otherwise specified, test(s) performed at: [facility], [address] [place] [address], [place] [address] PLANNING INTERN: Rojas Kirkland M.D., Ph.D For any questions, please call customer service at FREQUENCY:OTHER Resulting Agency Comment Specimen source: Blood Darren Youssef MD LAB BLOOD ORDERABLES Performing Organization Address City/State/ZIP Code Phon e Number [facility] documented in this encounter Visit Diagnoses Not on filedocumented in this encounter
--- OUTSIDE RECORDS SUMMARY | 2022-04-17 14:28 | XMS_ITS | Encounter Summary ---
:1940 Author Organization [facility] Address [address] [place] [address] Care Team Providers Name Role Phone Unavailable Primary Care Provider Unavailable Encounter Details Date Type Department Care Team Description 04/09/2022 Treatment [facility] Darren Singh MD [address] [place] [address] [place], [place] [phone] (Wo rk) Social History Tobacco Use Types Packs/Day Years Used Date Smoking Tobacco: Never Assessed Sex Assigned at Date Recorded Not on file documented as of this encounter Miscellaneous Notes Dialysis Note - Darren Youssef MD - 04/09/2022 12:22 PM CDT Date: Apr 09, 2022 Patient Name: Korey Mackay : 1940 Chart #: [id number] Sex: M This patient was personally seen for a complete visit as part of routine monthly dialysis care. A review of the dialysis treatment, blood pressure, estimated dry weight and recent lab values was made. These were discussed with the patient and staff as necessary. Treatment Data for 04/09/2022 started at:10:57 AM Dialyzer: 180NRe Optiflux Na: 137 mEq/L Bicarb: 35 mEq/L Dialysate: 3.0 K, 2.5 Ca, 1.0 Mg, 100 Dextrose (G3251) Dialysate/Machine Temp (prescribed): 37 C Dialysate/Machine Temp (actual): 36.8 C BFR (prescribed): 500 BFR (actual): 500 Prescribed time: 03:30 EDW: 98.5 kg Access Type: Active (In Use):AVFistula-Standard/Left Forearm Pre Dialysis Vitals (for 04/09/2022 10:45 AM ) Pre BP (sit): 130/57 Pre Wt: 100.8 kg Temp: 97.2 F Post Dialysis Vitals (for 04/07/2022 2:35 PM ) Post BP (sit): 116/60 Post Wt: 98.5 kg Current Dialysis Vitals (for 04/09/2022 12:05 PM ) BP (sit): 101/53 AP(-) / GREEN MEAT PACKER: 221/228 Pulse: 71 Chairside data as of 04/09/2022 12:05 PM Last 3 Treatments 04/07/2022 04/04/2022 04/02/2022 EDW (kg) 98.5 98.5 98.5 Weight Pre (kg) 101.3 100.7 101.6 Weight Post (kg) 98.5 98.2 98.8 Dialytic Weight Loss (kg) -2.8 -2.5 -2.8 EDW Deviation (kg) 0.0 -0.3 0.3 BP Sit Pre 119/55 117/63 136/58 BP Sit Post 116/60 110/55 118/54 UF Rate (mL/kg/hr) 8 7 8 Prescribed BFR 500 500 500 Average Delivered BFR 450 500 450 Prescribed Treatment Time 03:30 03:30 03:30 Actual Treatment Time 03:33 03:30 03:31 Last 3 Values 03/21/2022 11/15/2021 09/07/2021 Access Flow [id number] Treatment Medication Orders Medication Sig Start Date End Date Heparin Sodium (Porcine) 1,000 Units/mL Systemic 2000 units IVP Every Treatment 10/07/2021 10/06/2022 Vitamin D (Calcitriol) Oral 1.0 mcg ORAL Every Treatment 03/19/2022 03/18/2023 LIFE SCIENCE TAXONOMIST: Darren Youssef MD LOCATION: [phone] SCHEDULE: -- 2nd Shift EDW: kg. DIALYZER: HD DURATION: NEEDLE SIZE: ANTICOAG: BATH: QB: ml/min QD: ml/min Subjective Tolerating dialysis well. 04/09: He complains of not hvaing much zip after dialysis sessions, not new but maybe more pronounced than before. There has been no change in dry weight. He has occasional mild inra-dialytic hypotension but mostly avoid this and BP has been adequate post-HD. His notes BP at home low recently, as low as 70's systolic despite not getting any readings like that here and he is not symptomatic at those times making me suspicious about technique error or BP cuff issue and they will bring this in onFriday. She has stopped his imdur and she is waiting to hear from dedicated local truck driver who she called about this issue as well. He is not on any other BP medication. 03/26/22: HE has no new symptoms or concerns. He is going to [place] tomorrow for repeat procedure for dentures on [...] He feels well. Got dentures fixed in [place], working better. No CP, SOB, edema. 12/18/21: Anxious to get bottom dentures fixed, going to [place] this month for this for expertise there. No dyspnea or orthopnea. Not getting to EDW, likely gained some weight as no edema either. 12/04/21: Doing well overall, stable dialysis, BP controlled, above dry weight on Thursday but should get to EDW today. Dentures on bottom don't fit right, delay in re-fitting as his dentist has COVID. Loraenies CP, SOB, edema, muscle cramps, nausea. 11/13/21: Got dentures on top but they are loose and he has to go back, making it hard to eat outside soft foods that he doesn't need to chew. Access working well. HE feels overall well. Labs overall excellent. He denies CP, SOB, edema, cramps. 10/30/21: Korey is back from [place] for the summer. He says things went well there. He has no concerns today, feels things are going well, not using clamps on access anymore and less bruising and access working well. He denies CP, SOB, edema. 05/22/21: He is upset about lack of good times at HD unit in [place]. No new symptoms. Feels well today otherwise. Should get at or very close to dry weight today. Labs reviewed with him, overall excellent. 04/24/21: Many complaints today, brings up his bad experience at [facility] again, concerned about new person doing his [...] had becerril taken out, says Urologist in [place] told him to have nurses at dialysis [...] until follow-up next month with Urology in [place]. Still with hematuria but low UOP he reports (70 mL this am from overnight). Hgb slow to improve in setting of infection. 11/07/20: Notes below from Dr. Sky. I am meeting patient today for first time. He transferred from [facility] - he was unhappy with staff there [...] No sob eating well. Will go to [place] soon for the winter. 04/30/20. Pt feels well, denies sob, eating wlll, no new complaints. He decided against urology onsult for his gross hematuria. going to [place] on Thursday. Will show up there Thursday. 09/24/20 No new complaints at this time, Just back from [place]. 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 He now has two homes, one in [place] and one in [place]. He and his winter in [place]. They have one daughter that lives in [place], [place] and they have one son (who's had drug problems). Exam Respiratory - Clear to auscultation bilaterally. Cardiovascular - Regular rate. Regular rhythm. No murmur heard. Edema - 1+ leg edema. 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 Intact PTH is at goal. Horse Trainer will adjust binders and vitamin D per [...] candidate. Age >80 and co-morbidities Resuscitation Status Overall doing well with dialysis Concern for hypotension at home, bring in cuff to check here as asymptomatic and no significant hypotension out of the ordinary here at the dialysis unit recently or today thus far. Monthly labs today Darren Youssef MD [ Signed And locked electronically On 04/09/2022 at 12:25:40 PM ] Transcribed: Darren Youssef ( 04/09/2022 ) documented in this encounter Plan of Treatment Not on filedocumented as of this encounter Visit Diagnoses Not on filedocumented in this encounter
--- OUTSIDE RECORDS SUMMARY | 2022-04-17 14:28 | XMS_ITS | Encounter Summary ---
:1940 Author Organization [facility] Address [address] [place] [address] Care Team Providers Name Role Phone Unavailable Primary Care Provider Unavailable Encounter Details Date Type Department Care Team Description 02/05/2022 Orders Only [facility] O f Darren Escalante MD [address] [place] [address] [place], [place] [phone] (Wo rk) Social History Tobacco Use Types Packs/Day Years Used Date Smoking Tobacco: Never Assessed Sex Assigned at Date Recorded Not on file documented as of this encounter Plan of Treatment Not on filedocumented as of this encounter Procedures Procedure Name Priority Date/Time Associated Diagnosis Comme nts HEMATOLOGY Routine 02/05/2022 Results for thi s procedure are in the resu lts section. documented in this encounter Results (ABNORMAL) HEMATOLOGY (02/05/2022) Analysis Performed At Patho logist Time Signature Hemoglobin 11.0 (L) 14.0 - [facility] 18.0 g/dL [facility] Hemoglobin x 3 33.0 (L) 42.0 - [facility] 54.0 % [facility] Specimen (Source) Anatomical Collection Method Collection Time Re ceived Time Location / / Volume Laterality 02/05/2022 02/06/2022 3:23 AM CDT Narrative [facility] - 02/06/2022 Unless otherwise specified, test(s) performed at: [facility], [address] [place] [address], [place] [address] FARM REPORTER: Rojas Kirkland M.D., Ph.D For any questions, please call customer service at FREQUENCY:OTHER Resulting Agency Comment Specimen source: Blood Darren Youssef MD LAB BLOOD ORDERABLES Performing Organization Address City/State/ZIP Code Phon e Number [facility] documented in this encounter Visit Diagnoses Not on filedocumented in this encounter
--- OUTSIDE RECORDS SUMMARY | 2022-04-17 14:28 | XMS_ITS | Encounter Summary ---
:1940 Author Organization [facility] Address [address] [place] [address] Care Team Providers Name Role Phone Unavailable Primary Care Provider Unavailable Encounter Details Date Type Department Care Team Description 01/01/2022 Orders Only [facility] O f Darren Escalante MD [phone] [place] [address] [place], [place] [phone] (Wo rk) Social History Tobacco Use Types Packs/Day Years Used Date Smoking Tobacco: Never Assessed Sex Assigned at Date Recorded Not on file documented as of this encounter Plan of Treatment Not on filedocumented as of this encounter Procedures Procedure Name Priority Date/Time Associated Diagnosis Comme nts HEMATOLOGY Routine 01/01/2022 Results for thi s procedure are in the resu lts section. documented in this encounter Results (ABNORMAL) HEMATOLOGY (01/01/2022) Analysis Performed At Patho logist Time Signature Hemoglobin 9.9 (L) 14.0 - [facility] 18.0 g/dL [facility] Hemoglobin x 3 29.7 (L) 42.0 - [facility] 54.0 % [facility] Specimen (Source) Anatomical Collection Method Collection Time Re ceived Time Location / / Volume Laterality 01/01/2022 01/02/2022 3:08 PM CDT Narrative [facility] - 01/02/2022 Unless otherwise specified, test(s) performed at: [facility], [address] [place] [address], [place] [address] TURBINE ASSEMBLER: Rojas Kirkland M.D., Ph.D For any questions, please call customer service at FREQUENCY:OTHER Resulting Agency Comment Specimen source: Blood Darren Youssef MD LAB BLOOD ORDERABLES Performing Organization Address City/State/ZIP Code Phon e Number [facility] documented in this encounter Visit Diagnoses Not on filedocumented in this encounter
--- OUTSIDE RECORDS SUMMARY | 2022-04-17 14:28 | XMS_ITS | Encounter Summary ---
:1940 Author Organization [facility] Address [address] [place] [address] Care Team Providers Name Role Phone Unavailable Primary Care Provider Unavailable Encounter Details Date Type Department Care Team Description 03/26/2022 Orders Only [facility] O f Darren Escalante MD [phone] [place] [address] [place], [place] [phone] (Wo rk) Social History Tobacco Use Types Packs/Day Years Used Date Smoking Tobacco: Never Assessed Sex Assigned at Date Recorded Not on file documented as of this encounter Plan of Treatment Not on filedocumented as of this encounter Procedures Procedure Name Priority Date/Time Associated Diagnosis Comme nts HEMATOLOGY Routine 03/26/2022 Results for thi s procedure are in the resu lts section. documented in this encounter Results (ABNORMAL) HEMATOLOGY (03/26/2022) Analysis Performed At Patho logist Time Signature Hemoglobin 9.9 (L) 14.0 - [facility] 18.0 g/dL [facility] Hemoglobin x 3 29.7 (L) 42.0 - [facility] 54.0 % [facility] Specimen (Source) Anatomical Collection Method Collection Time Re ceived Time Location / / Volume Laterality 03/26/2022 03/27/2022 4:02 AM CDT Narrative [facility] - 03/27/2022 Unless otherwise specified, test(s) performed at: [facility], [address] [place] [address], [place] [address] CANDLE MOLDER: Rojas Kirkland M.D., Ph.D For any questions, please call customer service at FREQUENCY:OTHER Resulting Agency Comment Specimen source: Blood Darren Youssef MD LAB BLOOD ORDERABLES Performing Organization Address City/State/ZIP Code Phon e Number [facility] documented in this encounter Visit Diagnoses Not on filedocumented in this encounter
--- OUTSIDE RECORDS SUMMARY | 2022-04-17 14:28 | XMS_ITS | Encounter Summary ---
:1940 Author Organization [facility] Address [address] [place] [address] Care Team Providers Name Role Phone Unavailable Primary Care Provider Unavailable Encounter Details Date Type Department Care Team Description 02/12/2022 Orders Only [facility] O f Darren Escalante MD [address] [place] [address] [place], [place] [phone] (Wo rk) Social History Tobacco Use Types Packs/Day Years Used Date Smoking Tobacco: Never Assessed Sex Assigned at Date Recorded Not on file documented as of this encounter Plan of Treatment Not on filedocumented as of this encounter Procedures Procedure Name Priority Date/Time Associated Diagnosis Comme nts HD KINETICS Routine 02/12/2022 Results for thi [...] this encounter Results [facility] [place] Lab Results (02/12/2022) P athologist Signature PCR 56.32 [place] eKt/V 1.34 [place] ([place]) eNPCR 0.82 [place] spKt/V Gotch 1.67 [place] eKt/V Gotch 1.41 [place] nPCR_HD 0.88 [place] eKdrt/V 1.41 [place] spKt/V 1.57 [place] ([place] II) Specimen (Source) Anatomical Location Collection Method / Collectio n Time Received Time / Laterality Volume 02/12/2022 02/12/2022 [place] Ordering Provider LAB BLOOD ORDERABLES Performing Organization Address City/State/ZIP Code Phon e Number [place] HD KINETICS (02/12/2022) P athologist Signature % Urea 73 65 - 80 % [facility] Reduction [facility] Specimen (Source) Anatomical Collection Method Collection Time Re ceived Time Location / / Volume Laterality 02/12/2022 02/14/2022 7:24 AM CDT Narrative [facility] - 02/14/2022 Unless otherwise specified, test(s) performed at: [facility], [address] [place] [address], [place] [address] WATER POLLUTION CONTROL INSPECTOR: Rojas Kirkland M.D., Ph.D For any questions, please call customer service at FREQUENCY:MONTHLY Resulting Agency Comment Specimen source: Plasma Darren Youssef MD LAB BLOOD ORDERABLES Performing Organization Address City/State/ZIP Code Phon e Number [facility] (ABNORMAL) Spectrae Chemistry (02/12/2022) [facility] gist Method Time Signature BUN 45 (H) 6 - 19 [facility] mg/dL [facility] Creatinine 8.67 (H) 0.60 - [facility] 1.30 mg/dL [facility] BUN/Creatinine 5.2 (L) 10.0 - [facility] Ratio 20.0 [facility] Sodium 140 136 - 145 [facility] mEq/L [facility] Potassium 4.1 3.5 - 5.1 [facility] mEq/L [facility] Chloride 101 96 - 108 [facility] mEq/L [facility] Bicarbonate 28 20 - 31 [facility] (CO2) mEq/L [facility] Comment: Please note change in reference range. Calcium 8.9 8.7 - 10.4 mg/dL [facility] Comment: Please note change in reference range. Corrected Calcium 9.1 8.7 - 10.4 mg/dL [facility]PS S PECTRA [facility] Comment: Corrected Calcium is not equivalent to m easured Ionized Calcium. Phosphorus 3.7 2.6 - 4.5 mg/dL [facility] Calcium Phosphorus Product 33 0 - 54 [facility] Calcium Phosporus Product, Cor 34 0 - 54 [facility] Total Protein 6.8 6.0 - 8.5 g/dL [facility] Albumin 3.8 3.5 - 5.2 g/dL [facility] Globulin, Total 3.0 2.0 - 4.0 g/dL [facility]PS SPECT RA [facility] A/G Ratio 1.3 1.0 - 2.0 [facility] Iron 73 45 - 160 mcg/dL [facility] UIBC 149 (L) 155 - 355 mcg/dL [facility] K [facility] TIBC 222 185 - 515 mcg/dL [facility] K [facility] Iron Saturation (TSat) 33 20 - 55 % APS SPE CTRA [facility] Specimen (Source) Anatomical Collection Method Collection Time Re ceived Time Location / / Volume Laterality 02/12/2022 02/14/2022 9:01 AM CDT Narrative [facility] - 02/14/2022 Unless otherwise specified, test(s) performed at: [facility], [address] [place] [address], [place] [address] WATER POLLUTION CONTROL INSPECTOR: Rojas Kirkland M.D., Ph.D For any questions, please call customer service at FREQUENCY:MONTHLY Resulting Agency Comment Specimen source: Serum Darren Youssef MD LAB BLOOD ORDERABLES Performing Organization Address City/State/ZIP Code Phon e Number [facility] (ABNORMAL) HEMATOLOGY (02/12/2022) Analysis Performed At Patho logist Time Signature WBC 5.36 4.80 - [facility] 10.80 [facility] 1000/mcL RBC 3.34 (L) 4.70 - [facility] 6.10 [facility] mill/mcL Hemoglobin 10.9 (L) 14.0 - [facility] 18.0 g/dL [facility] Hemoglobin x 3 32.7 (L) 42.0 - [facility] 54.0 % [facility] Hematocrit 33.9 (L) 42.0 - [facility] 52.0 % [facility] MCV 102 (H) 80 - 100 [facility] fl [facility] MCH 32.7 (H) 27.0 - [facility] 31.0 pg [facility] MCHC 32.2 30.0 - [facility] 36.0 g/dL [facility] RDW 15.4 (H) 11.5 - [facility] 14.5 % [facility] Platelets 131 130 - 400 [facility] 1000/mcL [facility] Specimen (Source) Anatomical Collection Method Collection Time Re ceived Time Location / / Volume Laterality 02/12/2022 02/14/2022 7:28 AM CDT Narrative [facility] - 02/14/2022 Unless otherwise specified, test(s) performed at: [facility], [address] [place] [address], [place] [address] WATER POLLUTION CONTROL INSPECTOR: Rojas Kirkland M.D., Ph.D For any questions, please call customer service at FREQUENCY:MONTHLY Resulting Agency Comment Specimen source: Blood Darren Youssef MD LAB BLOOD ORDERABLES Performing Organization Address City/[facility] Phon e Number [facility] POST CHEMISTRY (02/12/2022) P athologist Signature BUN Post 12 6 - 19 [facility] Dialysis mg/dL [facility] Specimen (Source) Anatomical Collection Method Collection Time Re ceived Time Location / / Volume Laterality 02/12/2022 02/14/2022 7:24 AM CDT Narrative [facility] - 02/14/2022 Unless otherwise specified, test(s) performed at: [facility], [address] [place] [address], [place] [address] WATER POLLUTION CONTROL INSPECTOR: Rojas Kirkland M.D., Ph.D For any questions, please call customer service at FREQUENCY:MONTHLY Resulting Agency Comment Specimen source: Plasma Darren Youssef MD LAB BLOOD ORDERABLES Performing Organization Address City/[facility] Phon e Number [facility] IMMUNO CHEMISTRY (02/12/2022) P athologist Signature Hep B Surface Negative Negative [facility] Ag [facility] Hepatitis B 139 mIU/mL [facility] Surface Ab [facility] Comment: The anti-HBs (Hepatitis B surface antibo dy) is greater than or equal to 10 mIU/mL and implies immunity. The linda ent has either had an antibody response to HBV vaccination, received a transfusion, or has recovered from HBV infection. For post-vaccination antibody testing guidelines for the general public, refer to MMWR Dece 2004/Vol.54 (No. 16); -23, and for healthcare workers, refer to MMWR May 27, 2013/Vol.62 (No. 10); 1-18. Reference Range: <10 mIU/mL ? Non-Immune >=10 mIU/mL ?Immune The magnitude of the measured result abo ve 10 mIU/mL is not indicative of the total amount of antibody present. Specimen (Source) Anatomical Collection Method Collection Time Re ceived Time Location / / Volume Laterality 02/12/2022 02/14/2022 5:41 AM CDT Resulting Agency Comment Specimen source: Plasma Darren Youssef MD LAB BLOOD ORDERABLES Performing Organization Address City/State/ZIP Code Phon e Number [facility] (ABNORMAL) Spectrae Chemistry (02/12/2022) P athologist Signature PTH 329 (H) 16 - 80 [facility] pg/mL [facility] Specimen (Source) Anatomical Collection Method Collection Time Re ceived Time Location / / Volume Laterality 02/12/2022 02/14/2022 5:41 AM CDT Narrative [facility] - 02/14/2022 Unless otherwise specified, test(s) performed at: [facility], [address] [place] [address], [place] [address] WATER POLLUTION CONTROL INSPECTOR: Rojas Kirkland M.D., Ph.D For any questions, please call customer service at FREQUENCY:MONTHLY Resulting Agency Comment Specimen source: Plasma Darren Youssef MD LAB BLOOD ORDERABLES Performing Organization Address City/State/ZIP Code Phon e Number [facility] Blood culture (02/12/2022) Analysis Performed At Patho logist Time Signature Culture, Blood See below [facility] Comment: No Aerobic or Anaerobic Growth after 5 D ays of Incubation. Specimen (Source) Anatomical Collection Method Collection Time Re ceived Time Location / / Volume Laterality 02/12/2022 02/13/2022 10:3 2 AM CDT Narrative [facility] - 02/18/2022 Unless otherwise specified, test(s) performed at: [facility], [address] [place] [address] [place] [address] WATER POLLUTION CONTROL INSPECTOR: Rojas Kirkland M.D., Ph.D For any questions, please call customer service at FREQUENCY:OTHER Resulting Agency Comment Specimen source: Blood/Dialysis Bloodlin e Darren Youssef MD LAB MICROBIOLOGY - GENERAL O RDERABLES Performing Organization Address City/State/ZIP Code Phon e Number [facility] documented in this encounter Visit Diagnoses Not on filedocumented in this encounter
--- OUTSIDE RECORDS SUMMARY | 2022-04-17 14:28 | XMS_ITS | Encounter Summary ---
:1940 Author Organization [facility] Address [address] [place] [address] Care Team Providers Name Role Phone Unavailable Primary Care Provider Unavailable Encounter Details Date Type Department Care Team Description 03/19/2022 Orders Only [facility] O f Darren Escalante MD [address] [place] [address] [place], [place] [phone] (Wo rk) Social History Tobacco Use Types Packs/Day Years Used Date Smoking Tobacco: Never Assessed Sex Assigned at Date Recorded Not on file documented as of this encounter Plan of Treatment Not on filedocumented as of this encounter Procedures Procedure Name Priority Date/Time Associated Diagnosis Comme nts HEMATOLOGY Routine 03/19/2022 Results for thi s procedure are in the resu lts section. documented in this encounter Results (ABNORMAL) HEMATOLOGY (03/19/2022) Analysis Performed At Patho logist Time Signature Hemoglobin 10.4 (L) 14.0 - [facility] 18.0 g/dL [facility] Hemoglobin x 3 31.2 (L) 42.0 - [facility] 54.0 % [facility] Specimen (Source) Anatomical Collection Method Collection Time Re ceived Time Location / / Volume Laterality 03/19/2022 03/20/2022 6:31 AM CDT Narrative [facility] - 03/20/2022 Unless otherwise specified, test(s) performed at: [facility], [address] [place] [address], [place] [address] HIGH SCHOOL SOCIAL STUDIES TUTOR: Rojas Kirkland M.D., Ph.D For any questions, please call customer service at FREQUENCY:OTHER Resulting Agency Comment Specimen source: Blood Darren Youssef MD LAB BLOOD ORDERABLES Performing Organization Address City/State/ZIP Code Phon e Number [facility] documented in this encounter Visit Diagnoses Not on filedocumented in this encounter
--- OUTSIDE RECORDS SUMMARY | 2022-04-17 14:28 | XMS_ITS | Encounter Summary ---
:1940 Author Organization [facility] Address [address] [place] [address] Care Team Providers Name Role Phone Unavailable Primary Care Provider Unavailable Encounter Details Date Type Department Care Team Description 03/12/2022 [facility] Only [facility] O f Darren Escalante MD [address] [place] [address] [place], [place] [phone] (Wo rk) Social History Tobacco Use Types Packs/Day Years Used Date Smoking Tobacco: Never Assessed Sex Assigned at Date Recorded Not on file documented as of this encounter Plan of Treatment Not on filedocumented as of this encounter Procedures Procedure Name Priority Date/Time Associated Diagnosis Comme nts HD KINETICS Routine 03/12/2022 Results for thi [...] this encounter Results [facility] [place] Lab Results (03/12/2022) P athologist Signature eKdrt/V 1.24 [place] eKt/V 1.19 [place] ([place]) eNPCR 0.89 [place] spKt/V Gotch 1.46 [place] nPCR_HD 0.96 [place] eKt/V Gotch 1.24 [place] PCR 60.54 [place] spKt/V 1.39 [place] ([place]ird[place] II) Specimen (Source) Anatomical Location Collection Method / Collectio n Time Received Time / Laterality Volume 03/12/2022 03/12/2022 [place] Ordering Provider LAB BLOOD ORDERABLES Performing Organization Address City/[facility]/ZIP Code Phon e Number [place] IMMUNO CHEMISTRY (03/12/2022) P athologist Signature Hep B Surface Negative Negative APS SPECTRA Ag [facility] Hepatitis B 132 mIU/mL [facility] Surface Ab [facility] Comment: The anti-HBs (Hepatitis B surface antibo dy) is greater than or equal to 10 mIU/mL and implies immunity. The linda ent has either had an antibody response to HBV vaccination, received a transfusion, or has recovered from HBV infection. For post-vaccination antibody testing guidelines for the general public, refer to MMWR [facility] 2004/Vol.54 (No. 16); 1-23, and for healthcare workers, refer to MMWR May 27, 2013/Vol.62 (No. 10); 1-18. Reference Range: <10 mIU/mL ? Non-Immune >=10 mIU/mL ?Immune The magnitude of the measured result abo ve 10 mIU/mL is not indicative of the total amount of antibody present. Specimen (Source) Anatomical Collection Method Collection Time Re ceived Time Location / / Volume Laterality 03/12/2022 03/13/2022 10:4 6 AM CDT Resulting Agency Comment Specimen source: Plasma Darren Youssef MD LAB BLOOD ORDERABLES Performing Organization Address City/State/ZIP Code Phon e Number APS SPECTRA [facility] (ABNORMAL) Spectrae Chemistry (03/12/2022) P athologist Signature PTH 400 (H) 16 - 80 A[facility] S[facility]RA pg/mL [facility] Specimen (Source) Anatomical Collection Method Collection Time Re ceived Time Location / / Volume Laterality 03/12/2022 03/13/2022 10:4 6 AM CDT Narrative APS SPECTRA [facility] - 03/13/2022 Unless otherwise specified, test(s) performed at: [facility], [address] [place] [facility] [place] [address] SPLITTER HAND: Rojas Kirkland M.D., Ph.D For any questions, please call customer service at FREQUENCY:MONTHLY Resulting Agency Comment Specimen source: Plasma Darren Youssef MD LAB BLOOD ORDERABLES Performing Organization Address [facility] Phon e Number APS SPECTRA [facility] HD KINETICS (03/12/2022) athologist Signature % Urea 69 65 - 80 % APS SPECTRA Reduction [facility] Specimen (Source) Anatomical Collection Method Collection Time Re ceived Time Location / / Volume Laterality 03/12/2022 03/13/2022 4:35 AM CDT Resulting Agency Comment Specimen source: Plasma Darren Youssef MD LAB BLOOD ORDERABLES Performing Organization Address [facility] Phon e Number APS SPECTRA [facility] POST CHEMISTRY (03/12/2022) athologist Signature BUN Post 17 6 - 19 APS SPECTRA Dialysis mg/dL [facility] Specimen (Source) Anatomical Collection Method Collection Time Re ceived Time Location / / Volume Laterality 03/12/2022 03/13/2022 4:35 AM CDT Narrative APS SPECTRA [facility] - 03/13/2022 Unless otherwise specified, test(s) performed at: [facility], [address] [place] [address], [place] [address] SPLITTER HAND: Rojas Kirkland M.D., Ph.D For any questions, please call customer service at FREQUENCY:MONTHLY Resulting Agency Comment Specimen source: Plasma Darren Youssef MD LAB BLOOD ORDERABLES Performing Organization Address [facility] Phon e Number APS SPECTRA [facility] (ABNORMAL) Spectrae Chemistry (03/12/2022) [facility] gist Method Time Signature BUN 54 (H) 6 - 19 APS SPECTRA mg/dL [facility] Creatinine 8.99 (H) 0.60 - APS SPECTRA 1.30 mg/dL [facility] BUN/Creatinine 6.0 (L) 10.0 - APS SPECTRA Ratio 20.0 [facility] Sodium 140 136 - 145 APS SPECTRA mEq/L [facility] Potassium 5.3 (H) 3.5 - 5.1 APS SPECTRA mEq/L [facility] Chloride 101 96 - 108 APS SPECTRA mEq/L [facility] Bicarbonate 24 20 - 31 APS SPECTRA (CO2) mEq/L [facility] Comment: Please note change in reference range. Calcium 9.1 8.7 - 10.4 mg/dL APS SPECTRA [facility] Comment: Please note change in reference range. Corrected Calcium 9.3 8.7 - 10.4 mg/dL APS S PECTRA [facility] Comment: Corrected Calcium is not equivalent to m easured Ionized Calcium. Phosphorus 3.8 2.6 - 4.5 mg/dL APS SPECTRA K [facility] Calcium Phosphorus Product 35 0 - 54 APS SPECTRA [facility] Calcium Phosporus Product, Cor 35 0 - 54 APS SPECTRA [facility] Alkaline Phosphatase 97 40 - 129 U/L APS SP ECTRA [facility] Total Protein 7.0 6.0 - 8.5 g/dL APS SPECTRA [facility] Albumin 3.8 3.5 - 5.2 g/dL APS SPECTRA [facility] [place] Globulin, Total 3.2 2.0 - 4.0 g/dL APS SPECT RA [facility] A/G Ratio 1.2 1.0 - 2.0 APS SPECTRA [facility] Magnesium 2.0 1.6 - 2.6 mg/dL APS SPECTRA [place] [facility] Ferritin 965 (H) 22 - 322 ng/mL APS SPECTRA [facility] [place] Iron 163 (H) 45 - 160 mcg/dL APS SPECTRA [place] [facility] UIBC 63 (L) 155 - 355 mcg/dL APS SPECTRA [facility] TIBC 226 185 - 515 mcg/dL APS SPECTRA K [facility] Iron Saturation (TSat) 72 (H) 20 - 55 % APS SPE CTRA [facility] Specimen (Source) Anatomical Collection Method Collection Time Re ceived Time Location / / Volume Laterality 03/12/2022 03/13/2022 4:35 AM CDT Narrative APS SPECTRA [facility] - 03/13/2022 Unless otherwise specified, test(s) performed at: [facility], [address] [place], [place] [address] [place] [address] SPLITTER HAND: Rojas Kirkland M.D., Ph.D For any questions, please call customer service at FREQUENCY:MONTHLY Resulting Agency Comment Specimen source: Serum Darren Youssef MD LAB BLOOD ORDERABLES Performing Organization Address City/State/ZIP Code Phon e Number APS SPECTRA [facility] (ABNORMAL) HEMATOLOGY (03/12/2022) Analysis Performed At Patho logist Time Signature WBC 5.35 4.80 - APS SPECTRA 10.80 [facility] 1000/mcL RBC 3.26 (L) 4.70 - APS SPECTRA 6.10 [facility] mill/mcL Hemoglobin 10.7 (L) 14.0 - APS SPECTRA 18.0 g/dL [facility] Hemoglobin x 3 32.1 (L) 42.0 - APS SPECTRA 54.0 % [facility] Hematocrit 31.7 (L) 42.0 - APS SPECTRA 52.0 % [facility] MCV 97 80 - 100 APS SPECTRA fl [facility] MCH 32.7 (H) 27.0 - APS SPECTRA 31.0 pg [facility] MCHC 33.6 30.0 - APS SPECTRA 36.0 g/dL [facility] RDW 14.8 (H) 11.5 - APS SPECTRA 14.5 % [facility] Platelets 102 (L) 130 - 400 APS SPECTRA 1000/mcL [facility] Specimen (Source) Anatomical Collection Method Collection Time Re ceived Time Location / / Volume Laterality 03/12/2022 03/13/2022 4:46 AM CDT Narrative APS SPECTRA [facility] - 03/13/2022 Unless otherwise specified, test(s) performed at: [facility], [address] [place] [address], [place] [address] SPLITTER HAND: Rojas Kirkland M.D., Ph.D For any questions, please call customer service at FREQUENCY:MONTHLY Resulting Agency Comment Specimen source: Blood Darren Youssef MD LAB BLOOD ORDERABLES Performing Organization Address City/[facility] Code Phon e Number APS SPECTRA [facility] documented in this encounter Visit Diagnoses Not on filedocumented in this encounter
--- OUTSIDE RECORDS SUMMARY | 2022-04-17 14:28 | XMS_ITS | Encounter Summary ---
:1940 Author Organization [facility] Address [address] [place] [address] Care Team Providers Name Role Phone Unavailable Primary Care Provider Unavailable Encounter Details Date Type Department Care Team Description 01/29/2022 Orders Only [facility] O f Darren Escalante MD [address] [place] [address] [place], [place] [phone] (Wo rk) Social History Tobacco Use Types Packs/Day Years Used Date Smoking Tobacco: Never Assessed Sex Assigned at Date Recorded Not on file documented as of this encounter Plan of Treatment Not on filedocumented as of this encounter Procedures Procedure Name Priority Date/Time Associated Diagnosis Comme nts HEMATOLOGY Routine 01/29/2022 Results for thi s procedure are in the resu lts section. documented in this encounter Results (ABNORMAL) HEMATOLOGY (01/29/2022) Analysis Performed At Patho logist Time Signature Hemoglobin 11.0 (L) 14.0 - APS SPECTRA 18.0 g/dL [facility] Hemoglobin x 3 33.0 (L) 42.0 - APS SPECTRA 54.0 % [facility] Specimen (Source) Anatomical Collection Method Collection Time Re ceived Time Location / / Volume Laterality 01/29/2022 01/30/2022 10:4 0 AM CDT Narrative APS SPECTRA [facility] - 01/30/2022 Unless otherwise specified, test(s) performed at: [facility], [address] [place] [address], [place] [address] RESIDENT ASSISTANT: Rojas Kirkland M.D., Ph.D For any questions, please call customer service at FREQUENCY:OTHER Resulting Agency Comment Specimen source: Blood Darren Youssef MD LAB BLOOD ORDERABLES Performing Organization Address City/State/ZIP Code Phon e Number APS SPECTRA [facility] documented in this encounter Visit Diagnoses Not on filedocumented in this encounter
--- OUTSIDE RECORDS SUMMARY | 2022-04-17 14:29 | XMS_ITS | Encounter Summary ---
:1940 Author Organization [facility] Address [address] [place] [address] Care Team Providers Name Role Phone Unavailable Primary Care Provider Unavailable Encounter Details Date Type Department Care Team Description 11/13/2021 Orders Only [facility] O f Darren Escalante MD [address] [place] [address] [place], [place] [phone] (Wo rk) Social History Tobacco Use Types Packs/Day Years Used Date Smoking Tobacco: Never Assessed Sex Assigned at Date Recorded Not on file documented as of this encounter Plan of Treatment Not on filedocumented as of this encounter Procedures Procedure Name Priority Date/Time Associated Diagnosis Comme nts HEMATOLOGY Routine 11/13/2021 Results for thi s procedure are in the resu lts section. documented in this encounter Results (ABNORMAL) HEMATOLOGY (11/13/2021) Analysis Performed At Patho logist Time Signature Hemoglobin 9.5 (L) 14.0 - APS SPECTRA 18.0 g/dL [facility] Hemoglobin x 3 28.5 (L) 42.0 - APS SPECTRA 54.0 % [facility] Specimen (Source) Anatomical Collection Method Collection Time Re ceived Time Location / / Volume Laterality 11/13/2021 11/15/2021 12:5 3 PM CDT Narrative APS SPECTRA [facility] - 11/15/2021 Unless otherwise specified, test(s) performed at: [facility], [address] [place] [address] ORTHOTICS PROSTHETICS ASSISTANT: Jacob Junior M.D. For any questions, please call customer service at FREQUENCY:OTHER Resulting Agency Comment Specimen source: Blood Darren Youssef MD LAB BLOOD ORDERABLES Performing Organization Address City/State/ZIP Code Phon e Number APS SPECTRA [facility] documented in this encounter Visit Diagnoses Not on filedocumented in this encounter
--- OUTSIDE RECORDS SUMMARY | 2022-04-17 14:29 | XMS_ITS | Encounter Summary ---
:1940 Author Organization [facility] Address [address] [place] [address] Care Team Providers Name Role Phone Unavailable Primary Care Provider Unavailable Encounter Details Date Type Department Care Team Description 10/30/2021 Orders Only [facility] O f Darren Escalante MD [phone] [place] [address] [place], [place] [phone] (Wo rk) Social History Tobacco Use Types Packs/Day Years Used Date Smoking Tobacco: Never Assessed Sex Assigned at Date Recorded Not on file documented as of this encounter Plan of Treatment Not on filedocumented as of this encounter Procedures Procedure Name Priority Date/Time Associated Diagnosis Comme nts HEMATOLOGY Routine 10/30/2021 Results for thi s procedure are in the resu lts section. documented in this encounter Results (ABNORMAL) HEMATOLOGY (10/30/2021) Analysis Performed At Patho logist Time Signature Hemoglobin 9.9 (L) 14.0 - APS SPECTRA 18.0 g/dL [facility] Hemoglobin x 3 29.7 (L) 42.0 - APS SPECTRA 54.0 % [facility] Specimen (Source) Anatomical Collection Method Collection Time Re ceived Time Location / / Volume Laterality 10/30/2021 10/31/2021 2:17 PM CDT Narrative APS SPECTRA [facility] - 10/31/2021 Unless otherwise specified, test(s) performed at: [facility], [address] [place] [address] DIRECTOR OF SERVICES: Jacob Junior M.D. For any questions, please call customer service at FREQUENCY:OTHER Resulting Agency Comment Specimen source: Blood Darren Youssef MD LAB BLOOD ORDERABLES Performing Organization Address City/State/ZIP Code Phon e Number APS SPECTRA [facility] documented in this encounter Visit Diagnoses Not on filedocumented in this encounter
--- OUTSIDE RECORDS SUMMARY | 2022-04-17 14:29 | XMS_ITS | Encounter Summary ---
:1940 Author Organization [facility] Address [address] [place] [address] Care Team Providers Name Role Phone Unavailable Primary Care Provider Unavailable Encounter Details Date Type Department Care Team Description 12/11/2021 Orders Only [facility] O f Darren Escalante MD [address] [place] [address] [place], [place] [phone] (Wo rk) Social History Tobacco Use Types Packs/Day Years Used Date Smoking Tobacco: Never Assessed Sex Assigned at Date Recorded Not on file documented as of this encounter Plan of Treatment Not on filedocumented as of this encounter Procedures Procedure Name Priority Date/Time Associated Diagnosis Comme nts HD KINETICS Routine 12/11/2021 Results for thi s procedure are i n the results section . SPECIAL CHEMISTRY Routine 12/11/2021 Results fo r this procedure are i n the results section . POST CHEMISTRY Routine 12/11/2021 Results for t his procedure are i n the results section . IMMUNO CHEMISTRY Routine 12/11/2021 Results for this procedure are i n the results section . HEMATOLOGY Routine 12/11/2021 Results for thi s procedure are i n the results section . CHEMISTRY Routine 12/11/2021 Results for thi s procedure are i n the results section . CHEMISTRY Routine 12/11/2021 Results for thi s procedure are i n the results section . S[facility]RA [facility] LAB RESULTS Routine 12/11/2021 Resul ts for this procedure are i n the results section . documented in this encounter Results [facility]ra [facility] Lab Results (12/11/2021) P athologist Signature spKt/V Gotch 1.65 [place] eKt/V 1.35 [place] ([place]) PCR 83.80 [place] spKt/V 1.57 [place] ([place]ird[place] II) eKdrt/V 1.39 [place] eKt/V Gotch 1.39 [place] eNPCR 1.14 [facility] nPCR_HD 1.23 [place] Specimen (Source) Anatomical Location Collection Method / Collectio n Time Received Time / Laterality Volume 12/11/2021 12/11/2021 [place] Ordering Provider LAB BLOOD ORDERABLES Performing Organization Address City/[facility]/ZIP Code Phon e Number [place] IMMUNO CHEMISTRY (12/11/2021) P athologist Signature Hep B Surface Negative Negative [facility]PS SPECTRA Ag [facility] Hepatitis B 282 mIU/mL APS SPECTRA Surface Ab [facility] Comment: The anti-HBs (Hepatitis B surface antibo dy) is greater than or equal to 10 mIU/mL and implies immunity. The linda ent has either had an antibody response to HBV vaccination, received a transfusion, or has recovered from HBV infection. For post-vaccination antibody testing guidelines for the general public, refer to MMWR Dece 2004/Vol.54 (No. 16); 1-23, and for healthcare workers, refer to MMWR May 27, 2013/Vol.62 (No. 10); 1-18. Reference Range: <10 mIU/mL ? Non-Immune >=10 mIU/mL ?Immune The magnitude of the measured result abo ve 10 mIU/mL is not indicative of the total amount of antibody present. Specimen (Source) Anatomical Collection Method Collection Time Re ceived Time Location / / Volume Laterality 12/11/2021 12/13/2021 4:33 PM CDT Resulting Agency Comment Specimen source: Plasma Darren Youssef MD LAB BLOOD ORDERABLES Performing Organization Address City/State/ZIP Code Phon e Number APS SPECTRA [facility] (ABNORMAL) Spectrae Chemistry (12/11/2021) P athologist Signature PTH 699 (H) 16 - 80 APS SPECTRA pg/mL [facility] Specimen (Source) Anatomical Collection Method Collection Time Re ceived Time Location / / Volume Laterality 12/11/2021 12/13/2021 4:33 PM CDT Narrative APS SPECTRA [facility] - 12/13/2021 Unless otherwise specified, test(s) performed at: [facility], [address] [place] [address], [place] [address] GOVERNMENT PROPERTY INSPECTOR: Rojas Kirkland M.D., Ph.D For any questions, please call customer service at FREQUENCY:MONTHLY Resulting Agency Comment Specimen source: Plasma Darren Youssef MD LAB BLOOD ORDERABLES Performing Organization Address City/[facility]/ZIP Code Phon e Number APS SPECTRA [facility] HD KINETICS (12/11/2021) P athologist Signature % Urea 74 65 - 80 % APS SPECTRA Reduction [facility] Specimen (Source) Anatomical Collection Method Collection Time Re ceived Time Location / / Volume Laterality 12/11/2021 12/13/2021 3:53 PM CDT Resulting Agency Comment Specimen source: Plasma Darren Youssef MD LAB BLOOD ORDERABLES Performing Organization Address [facility] Code Phon e Number APS SPECTRA [facility] POST CHEMISTRY (12/11/2021) P athologist Signature BUN Post 18 6 - 19 APS SPECTRA Dialysis mg/dL [facility] Specimen (Source) Anatomical Collection Method Collection Time Re ceived Time Location / / Volume Laterality 12/11/2021 12/13/2021 3:53 PM CDT Narrative APS SPECTRA [facility] - 12/13/2021 Unless otherwise specified, test(s) performed at: [facility], [address] [place] [address], [place] [address] GOVERNMENT PROPERTY INSPECTOR: Rojas Kirkland M.D., Ph.D For any questions, please call customer service at FREQUENCY:MONTHLY Resulting Agency Comment Specimen source: Plasma Darren Youssef MD LAB BLOOD ORDERABLES Performing Organization Address City/[facility] Phon e Number APS SPECTRA [facility] (ABNORMAL) HEMATOLOGY (12/11/2021) Analysis Performed At Patho logist Time Signature WBC 5.82 4.80 - APS SPECTRA 10.80 [facility] 1000/mcL RBC 2.96 (L) 4.70 - APS SPECTRA 6.10 [facility] mill/mcL Hemoglobin 9.8 (L) 14.0 - APS SPECTRA 18.0 g/dL [facility] Hemoglobin x 3 29.4 (L) 42.0 - APS SPECTRA 54.0 % [facility] Hematocrit 30.5 (L) 42.0 - APS SPECTRA 52.0 % [facility] MCV 103 (H) 80 - 100 APS SPECTRA fl [facility] MCH 33.3 (H) 27.0 - APS SPECTRA 31.0 pg [facility] MCHC 32.3 30.0 - APS SPECTRA 36.0 g/dL [facility] RDW 15.3 (H) 11.5 - APS SPECTRA 14.5 % [facility] Platelets 107 (L) 130 - 400 APS SPECTRA 1000/mcL [facility] Specimen (Source) Anatomical Collection Method Collection Time Re ceived Time Location / / Volume Laterality 12/11/2021 12/13/2021 2:40 PM CDT Narrative APS SPECTRA [facility] - 12/13/2021 Unless otherwise specified, test(s) performed at: [facility], [address] [place] [address], [place] [address] GOVERNMENT PROPERTY INSPECTOR: Rojas Kirkland M.D., Ph.D For any questions, please call customer service at FREQUENCY:MONTHLY Resulting Agency Comment Specimen source: Blood Darren Youssef MD LAB BLOOD ORDERABLES Performing Organization Address City/State/ZIP Code Phon e Number APS SPECTRA [facility] SPECIAL CHEMISTRY (12/11/2021) athologist Signature Vitamin D, 27.4 19.9 - APS SPECTRA 1,25-Dihydroxy 79.3 pg/mL [facility] Specimen (Source) Anatomical Collection Method Collection Time Re ceived Time Location / / Volume Laterality 12/11/2021 12/13/2021 4:43 AM CDT Resulting Agency Comment Specimen source: Serum Darren Youssef MD LAB BLOOD BANK TEST ORDERABL ES Performing Organization Address City/State/ZIP Code Phon e Number APS SPECTRA [facility] (ABNORMAL) Spectrae Chemistry (12/11/2021) Patholo gist Method Time Signature Ferritin 620 (H) 22 - 322 APS SPECTRA ng/mL [facility] BUN 68 (H) 6 - 19 APS SPECTRA mg/dL [facility] Creatinine 9.82 (H) 0.60 - APS SPECTRA 1.30 mg/dL [facility] BUN/Creatinine 6.9 (L) 10.0 - APS SPECTRA Ratio 20.0 [facility] Sodium 139 136 - 145 APS SPECTRA mEq/L [facility] Potassium 3.9 3.5 - 5.1 APS SPECTRA mEq/L [facility] Chloride 97 96 - 108 APS SPECTRA mEq/L [facility] Bicarbonate 26 20 - 31 APS SPECTRA (CO2) mEq/L [facility] Comment: Please note change in reference range. Calcium 8.5 (L) 8.7 - 10.4 mg/dL APS SPECTRA [facility] Comment: Please note change in reference range. Corrected Calcium 8.5 (L) 8.7 - 10.4 mg/dL APS S PECTRA [facility] Comment: Corrected Calcium is not equivalent to m easured Ionized Calcium. Phosphorus 5.2 (H) 2.6 - 4.5 mg/dL APS SPECTRA K [facility] Calcium Phosphorus Product 44 0 - 54 APS SPECTRA [facility] Calcium Phosporus Product, Cor 44 0 - 54 APS SPECTRA [facility] Alkaline Phosphatase 124 40 - 129 U/L APS SP ECTRA [facility] Total Protein 7.4 6.0 - 8.5 g/dL APS SPECTRA [facility] Albumin 4.0 3.5 - 5.2 g/dL APS SPECTRA [facility] [place] Globulin, Total 3.4 2.0 - 4.0 g/dL APS SPECT RA [facility] A/G Ratio 1.2 1.0 - 2.0 APS SPECTRA [facility] Magnesium 1.7 1.6 - 2.6 mg/dL APS SPECTRA [place] [facility] Comment: Custom Exception Iron 93 45 - 160 mcg/dL APS SPECTRA [place] [facility] UIBC 138 (L) 155 - 355 mcg/dL APS SPECTRA [facility] TIBC 231 185 - 515 mcg/dL APS SPECTRA [facility] Iron Saturation (TSat) 40 20 - 55 % APS SPE CTRA [facility] Specimen (Source) Anatomical Collection Method Collection Time Re ceived Time Location / / Volume Laterality 12/11/2021 12/13/2021 4:43 AM CDT Narrative APS SPECTRA [facility] - 12/13/2021 Unless otherwise specified, test(s) performed at: [facility], [address] [place] [address], [place] [address] GOVERNMENT PROPERTY INSPECTOR: Rojas Kirkland M.D., Ph.D For any questions, please call customer service at FREQUENCY:MONTHLY Resulting Agency Comment Specimen source: Serum Darren Youssef MD LAB BLOOD ORDERABLES Performing Organization Address City/State/ZIP Code Phon e Number APS SPECTRA [facility] documented in this encounter Visit Diagnoses Not on filedocumented in this encounter
--- OUTSIDE RECORDS SUMMARY | 2022-04-17 14:29 | XMS_ITS | Encounter Summary ---
:1940 Author Organization [facility] Address [address] [place] [address] Care Team Providers Name Role Phone Unavailable Primary Care Provider Unavailable Encounter Details Date Type Department Care Team Description 07/09/2021 Orders Only [facility] O f ETTA Provider, Trace Ordering [address] [place], [place] [phone] Social History Tobacco Use Types Packs/Day Years Used Date Smoking Tobacco: Never Assessed Sex Assigned at Date Recorded Not on file documented as of this encounter Plan of Treatment Not on filedocumented as of this encounter Procedures Procedure Name Priority Date/Time Associated Diagnosis Comme nts SPECTRA [facility] LAB RESULTS Routine 07/09/2021 Resul ts for this procedure are i n the results section . documented in this encounter Results Spectra [facility] Lab Results (07/09/2021) P athologist Signature eKt/V 1.15 [facility] ([place]) eKdrt/V 1.16 [facility] eKt/V Gotch 1.16 [facility] spKt/V 1.34 [facility] ([place]augirdas II) spKt/V Gotch 1.36 [facility] eNPCR 0.82 [facility] PCR 63.52 [facility] nPCR_HD 0.87 [facility] Specimen (Source) Anatomical Location Collection Method / Collectio n Time Received Time / Laterality Volume 07/09/2021 07/09/2021 Trace Ordering Provider LAB BLOOD ORDERABLES Performing Organization Address City/State/ZIP Code Phon e Number [facility] documented in this encounter Visit Diagnoses Not on filedocumented in this encounter
--- OUTSIDE RECORDS SUMMARY | 2022-04-17 14:29 | XMS_ITS | Encounter Summary ---
:1940 Author Organization [facility] Address [address] [place] [address] Care Team Providers Name Role Phone Unavailable Primary Care Provider Unavailable Encounter Details Date Type Department Care Team Description 12/18/2021 Treatment [facility] Darren Singh MD [address] [place] [address] [place], [place] [phone] (Wo rk) Social History Tobacco Use Types Packs/Day Years Used Date Smoking Tobacco: Never Assessed Sex Assigned at Date Recorded Not on file documented as of this encounter Miscellaneous Notes Dialysis Note - Darren Youssef MD - 12/18/2021 1:39 PM CDT Date: Dec 18, 2021 Patient Name: Korey Mackay : 1940 Chart #: [id number] Sex: M This patient was personally seen for a complete visit as part of routine monthly dialysis care. A review of the dialysis treatment, blood pressure, estimated dry weight and recent lab values was made. These were discussed with the patient and staff as necessary. Treatment Data for 12/18/2021 started at:10:56 AM Dialyzer: 180NRe Optiflux Na: 137 mEq/L Bicarb: 37 mEq/L Dialysate: 2.0 K, 2.5 Ca, 1.0 Mg, 100 Dextrose (G2251) Dialysate/Machine Temp (prescribed): 37 C Dialysate/Machine Temp (actual): 35.8 C BFR (prescribed): 500 BFR (actual): 450 Prescribed time: 03:30 EDW: 99 kg Access Type: Active (In Use):AVFistula-Standard/Left Forearm Pre Dialysis Vitals (for 12/18/2021 10:51 AM ) Pre BP (sit): 147/60 Pre Wt: 104 kg Temp: 98 F Post Dialysis Vitals (for 12/16/2021 2:47 PM ) Post BP (sit): 124/65 Post Wt: 100.2 kg Current Dialysis Vitals (for 12/18/2021 1:33 PM ) BP (sit): 141/77 AP(-) / KNOT CUTTER: 199/225 Pulse: 70 Chairside data as of 12/18/2021 1:33 PM Last 3 Treatments 12/16/2021 12/13/2021 12/11/2021 EDW (kg) 99 99 99 Weight Pre (kg) 104.6 104 103.3 Weight Post (kg) 100.2 99.7 99.5 Dialytic Weight Loss (kg) -4.4 -4.3 -3.8 EDW Deviation (kg) 1.2 0.7 0.5 BP Sit Pre 143/76 115/53 149/71 BP Sit Post 124/65 118/79 117/52 UF Rate (mL/kg/hr) 20 05 11 Prescribed BFR 500 500 500 Average Delivered BFR 450 510 510 Prescribed Treatment Time 03:30 03:30 03:30 Actual Treatment Time 03:31 03:34 03:30 Last 3 Values 11/15/2021 09/07/2021 08/13/2021 Access Flow 570 [id number] Treatment Medication Orders Medication Sig Start Date End Date Heparin Sodium (Porcine) 1,000 Units/mL Systemic 2000 units IVP Every Treatment 10/07/2021 10/06/2022 Iron Sucrose (Venofer) 100 mg IVP Every Treatment 12/18/2021 12/27/2021 Mircera 60 mcg IVP Every 2 weeks 12/11/2021 12/10/2022 Vitamin D (Calcitriol) Oral 0.5 mcg ORAL Every Treatment 12/16/2021 12/15/2022 PHYSICIAN/INTERNIST: Darren Youssef MD LOCATION: [phone] SCHEDULE: M-W-F 2nd Shift EDW: kg. DIALYZER: HD DURATION: NEEDLE SIZE: ANTICOAG: BATH: QB: ml/min QD: ml/min Subjective No new complaints. Tolerating dialysis well. 12/18/21: Anxious to get bottom dentures fixed, going to [facility] this month for this for expertise there. No dyspnea or orthopnea. Not getting to EDW, likely gained some weight as no edema either. 12/04/21: Doing well overall, stable dialysis, BP controlled, above dry weight on Thursday but should get to EDW today. Dentures on bottom don't fit right, delay in re-fitting as his dentist has COVID. Vita CP, SOB, edema, muscle cramps, nausea. 11/13/21: [...] of good times at HD unit in [place]. No new symptoms. Feels well today otherwise. Should get at or very close to dry weight today. Labs reviewed with him, overall excellent. 04/24/21: Many complaints today, brings up his bad experience at [facility] again, concerned about new person [...] had becerril taken out, says Urologist in [place] told him to have nurses at dialysis [...] until follow-up next month with Urology in [place]. Still with hematuria but low UOP he reports (70 mL this am from overnight). Hgb slow to improve in setting of infection. 11/07/20: Notes below from Dr. Sky. I am meeting patient today for first time. 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 He now has two homes, one in [place] and one in [place]. He and his winter in [place]. They have one daughter that lives in [place], [place] and they have one son [...] mouth once a day Dialyvite (b complex 33-hfwnx-o-biot-zinc) [id number] pp-qw-xzv-mg tablet Take 1 tablet by mouth once [...] made. Treatment and Adequacy Assessment BUN mg/dL 68 (12/11/21) 66 (11/06/21) 61 (10/16/21) 81 (10/07/21) 50 (05/08/21) UREA NITROGEN (MG/DL) IN SER/PLAS - POST DIALYSIS mg/dL 18 (12/11/21) 18 (11/06/21) 18 (10/16/21) 28 (10/07/21) 15 (05/08/21) URR % 74 (12/11/21) 73 (11/06/21) 70 (10/16/21) 65 (10/07/21) 70 (05/08/21) spKt/V Gotch 1.65 (12/11/21) 1.53 (11/06/21) 1.47 (10/16/21) 1.47 (09/10/21) 1.62 (08/20/21) eKdrt/V 1.39 (12/11/21) 1.3 (11/06/21) 1.25 (10/16/21) 1.25 (09/10/21) 1.38 (08/20/21) spKt/V (Daugirdas II) 1.5700 (12/11/21) 1.4900 (11/06/21) 1.4200 (10/16/21) 1.2500 (10/07/21) 1.4300 (09/10/21) Dialysis is adequate. Achieves prescribed time - Yes Achieves prescribed frequency - Yes Continue current prescription. Vascular Access Assessment Type of access: Fistula Surgeon - Urena Staff and patient report access is working well. Anemia Assessment HEMOGLOBIN (G/DL) IN BLOOD g/dL 9.8 (12/11/21) 9.8 (12/04/21) 10.1 (11/27/21) 10.0 (11/20/21) 9.5 (11/13/21) PLATELETS 1000/mcL 107 (12/11/21) 140 (11/06/21) 129 (10/07/21) 149 (05/08/21) 147 (04/10/21) IRON SATURATION % 45 (11/06/21) 53 (10/07/21) 25 (05/08/21) 34 (04/10/21) 45 (03/13/21) FERRITIN ng/mL 620 (12/11/21) 715 (11/20/21) 753 (10/07/21) 761 (03/13/21) 881 (03/06/21) Hemoglobin is at goal. Iron Saturation is at goal. Ferritin is at goal. Will adjust MISTY and intravenous iron per protocol. Nutritional and Metabolic Assessment ALBUMIN (G/DL) g/dL 4.0 (12/11/21) 3.9 (11/06/21) 3.8 (10/07/21) 3.8 (05/08/21) 3.5 (04/10/21) Sodium mEq/L 139 (12/11/21) 141 (11/06/21) 139 (10/07/21) 140 (05/08/21) 144 (04/10/21) POTASSIUM (MMOL/L) IN SER/PLAS mEq/L 3.9 (12/11/21) 3.9 (11/06/21) 3.9 (10/07/21) 4.4 (05/08/21) 4.8 (04/10/21) BICARBONATE (CO2) mEq/L 26 (12/11/21) 26 (11/06/21) 18 (10/07/21) 24 (05/08/21) 25 (04/10/21) Albumin is at goal. Encourage high-biological value protein intake. Oral Nutritional Supplement program. Potassium is at goal. Bicarbonate is at goal. Continue same Bone and Mineral Metabolism Assessment CALCIUM mg/dL 8.5 (12/11/21) 9.2 (11/06/21) 8.4 (10/07/21) 9.0 (05/08/21) 9.5 (04/10/21) CALCIUM (MG/DL) CORRECTED FOR ALBUMIN IN SER/PLAS mg/dL 8.5 (12/11/21) 9.3 (11/06/21) 8.6 (10/07/21) 9.2 (05/08/21) 9.9 (04/10/21) PHOSPHATE (MG/DL) IN SER/PLAS mg/dL 5.2 (12/11/21) 3.6 (11/06/21) 3.8 (10/07/21) 4.1 (05/08/21) 2.1 (04/10/21) CALCIUM PHOSPHORUS PRODUCT, COR 44 (12/11/21) 33 (11/06/21) 33 (10/07/21) 38 (05/08/21) 21 (04/10/21) IPTH pg/mL 699 (12/11/21) 384 (10/07/21) 176 (03/13/21) 251 (01/09/21) Corrected Calcium is at goal. Phosphorous is at goal. Intact PTH is above goal. Firebreak Cutter will adjust binders and vitamin D per protocol and continue to provide dietary education. Calcitriol inycreased Cardiovascular Assessment Blood pressures reviewed and are acceptable. Intradialytic weight gains are appropriate. Estimated dry weight is too low, will increase. Continue same cardiovascular medications. Increase EDW to 99.5 Kg Transplant Status: Patient is not a candidate. Age >80 and co-morbidities Resuscitation Status Stable dialysis, no changes today beside increase in EDW as above and calcitriol increased this month for PTH rise Darren Youssef MD [ Signed And locked electronically On 12/18/2021 at 01:41:27 PM ] Transcribed: Darren Youssef ( 12/18/2021 ) documented in this encounter Plan of Treatment Not on filedocumented as of this encounter Visit Diagnoses Not on filedocumented in this encounter
--- OUTSIDE RECORDS SUMMARY | 2022-04-17 14:29 | XMS_ITS | Encounter Summary ---
:1940 Author Organization [facility] Address [address] [place] [address] Care Team Providers Name Role Phone Unavailable Primary Care Provider Unavailable Encounter Details Date Type Department Care Team Description 05/15/2021 Orders Only [facility] O f Darren Escalante MD [phone] [place] [address] [place], [place] [phone] (Wo rk) Social History Tobacco Use Types Packs/Day Years Used Date Smoking Tobacco: Never Assessed Sex Assigned at Date Recorded Not on file documented as of this encounter Plan of Treatment Not on filedocumented as of this encounter Procedures Procedure Name Priority Date/Time Associated Diagnosis Comme nts HEMATOLOGY Routine 05/15/2021 Results for thi s procedure are in the resu lts section. documented in this encounter Results (ABNORMAL) HEMATOLOGY (05/15/2021) Analysis Performed At Patho logist Time Signature Hemoglobin 12.0 (L) 14.0 - [facility] 18.0 g/dL [facility] Hemoglobin x 3 36.0 (L) 42.0 - [facility] 54.0 % [facility] Specimen (Source) Anatomical Collection Method Collection Time Re ceived Time Location / / Volume Laterality 05/15/2021 05/16/2021 9:54 AM EVP BUSINESS DEVELOPMENT Narrative [facility] - 05/16/2021 Unless otherwise specified, test(s) performed at: [facility], [address] [place] [id number] VALIDATION SOFTWARE FACILITATOR: Jacob Junior M.D. For any questions, please call customer service at FREQUENCY:OTHER Resulting Agency Comment Specimen source: Blood Darren Youssef MD LAB BLOOD ORDERABLES Performing Organization Address City/State/ZIP Code Phon e Number [facility] documented in this encounter Visit Diagnoses Not on filedocumented in this encounter
--- OUTSIDE RECORDS SUMMARY | 2022-04-17 14:29 | XMS_ITS | Encounter Summary ---
:1940 Author Organization [facility] Address [address] [place] [address] Care Team Providers Name Role Phone Unavailable Primary Care Provider Unavailable Encounter Details Date Type Department Care Team Description 11/27/2021 Orders Only [facility] O f Darren Escalante MD [phone] [place] [address] [place], [place] [phone] (Wo rk) Social History Tobacco Use Types Packs/Day Years Used Date Smoking Tobacco: Never Assessed Sex Assigned at Date Recorded Not on file documented as of this encounter Plan of Treatment Not on filedocumented as of this encounter Procedures Procedure Name Priority Date/Time Associated Diagnosis Comme nts HEMATOLOGY Routine 11/27/2021 Results for thi s procedure are in the resu lts section. documented in this encounter Results (ABNORMAL) HEMATOLOGY (11/27/2021) Analysis Performed At Patho logist Time Signature Hemoglobin 10.1 (L) 14.0 - [facility] 18.0 g/dL [facility] Hemoglobin x 3 30.3 (L) 42.0 - [facility] 54.0 % [facility] Specimen (Source) Anatomical Collection Method Collection Time Re ceived Time Location / / Volume Laterality 11/27/2021 11/28/2021 1:00 PM CDT Narrative [facility] - 11/28/2021 Unless otherwise specified, test(s) performed at: [facility], [address] [place] [id number] LEGAL ASSISTANT: Jacob Junior M.D. For any questions, please call customer service at FREQUENCY:OTHER Resulting Agency Comment Specimen source: Blood Darren Youssef MD LAB BLOOD ORDERABLES Performing Organization Address City/State/ZIP Code Phon e Number [facility] documented in this encounter Visit Diagnoses Not on filedocumented in this encounter
--- OUTSIDE RECORDS SUMMARY | 2022-04-17 14:29 | XMS_ITS | Encounter Summary ---
:1940 Author Organization [facility] Address [address] [place] [address] Care Team Providers Name Role Phone Unavailable Primary Care Provider Unavailable Encounter Details Date Type Department Care Team Description 10/09/2021 Orders Only [facility] O f Darren Escalante MD [phone] [place] [address] [place], [place] [phone] (Wo rk) Social History Tobacco Use Types Packs/Day Years Used Date Smoking Tobacco: Never Assessed Sex Assigned at Date Recorded Not on file documented as of this encounter Plan of Treatment Not on filedocumented as of this encounter Procedures Procedure Name Priority Date/Time Associated Diagnosis Comme nts HEMATOLOGY Routine 10/09/2021 Results for thi s procedure are in the resu lts section. documented in this encounter Results (ABNORMAL) HEMATOLOGY (10/09/2021) Analysis Performed At Patho logist Time Signature Hemoglobin 11.1 (L) 14.0 - [facility] 18.0 g/dL [facility] Hemoglobin x 3 33.3 (L) 42.0 - [facility] 54.0 % [facility] Specimen (Source) Anatomical Collection Method Collection Time Re ceived Time Location / / Volume Laterality 10/09/2021 10/10/2021 3:57 PM CDT Narrative [facility] - 10/10/2021 Unless otherwise specified, test(s) performed at: [facility], [address] [place] [id number] AIRCRAFT LANDING GEAR INSPECTOR: Jacob Junior M.D. For any questions, please call customer service at FREQUENCY:OTHER Resulting Agency Comment Specimen source: Blood Darren Youssef MD LAB BLOOD ORDERABLES Performing Organization Address City/State/ZIP Code Phon e Number [facility] documented in this encounter Visit Diagnoses Not on filedocumented in this encounter
--- OUTSIDE RECORDS SUMMARY | 2022-04-17 14:29 | XMS_ITS | Encounter Summary ---
:1940 Author Organization [facility] Address [address] [place] [address] Care Team Providers Name Role Phone Unavailable Primary Care Provider Unavailable Encounter Details Date Type Department Care Team Description 10/07/2021 Orders Only [facility] Darren Escalante MD [phone] [place] [address] [place], [place] [phone] (Wo rk) Social History Tobacco Use Types Packs/Day Years Used Date Smoking Tobacco: Never Assessed Sex Assigned at Date Recorded Not on file documented as of this encounter Plan of Treatment Not on filedocumented as of this encounter Procedures Procedure Name Priority Date/Time Associated Diagnosis Comme nts HD KINETICS Routine 10/07/2021 Results for thi s procedure are i n the results section . SPECIAL CHEMISTRY Routine 10/07/2021 Results fo r this procedure are i n the results section . POST CHEMISTRY Routine 10/07/2021 Results for t his procedure are i n the results section . IMMUNO CHEMISTRY Routine 10/07/2021 Results for this procedure are i n the results section . TRACE ELEMENTS Routine 10/07/2021 Results for t his procedure are i n the results section . HEMATOLOGY Routine 10/07/2021 Results for thi s procedure are i n the results section . CHEMISTRY Routine 10/07/2021 Results for thi s procedure are i n the results section . CHEMISTRY Routine 10/07/2021 Results for thi s procedure are i n the results section . SPECTRA [place] LAB RESULTS Routine 10/07/2021 Resul ts for this procedure are i n the results section . documented in this encounter Results Spectra [place] Lab Results (10/07/2021) athologist Signature spKt/V 1.25 [place] ([place]) eKt/V 1.07 [place] ([place]) Specimen (Source) Anatomical Location Collection Method / Collectio n Time Received Time / Laterality Volume 10/07/2021 10/07/2021 [place] Ordering Provider LAB BLOOD ORDERABLES Performing Organization Address City/[facility]/ZIP Code Phon e Number [place] SPECIAL CHEMISTRY (10/07/2021) P athologist Signature Vitamin D, 27.5 19.9 - APS SPECTRA 1,25-Dihydroxy 79.3 pg/mL [facility] Specimen (Source) Anatomical Collection Method Collection Time Re ceived Time Location / / Volume Laterality 10/07/2021 10/08/2021 9:49 AM CDT Narrative APS SPECTRA [facility] - 10/08/2021 Unless otherwise specified, test(s) performed at: [facility], [address] [place] [id number] DESK REPORTER: Jacob Junior M.D. For any questions, please call customer service at FREQUENCY:MONTHLY Resulting Agency Comment Specimen source: Serum Darren Youssef MD LAB BLOOD BANK TEST ORDERABL ES Performing Organization Address City/[facility] Phon e Number APS SPECTRA [facility] HD KINETICS (10/07/2021) P athologist Signature % Urea 65 65 - 80 % APS SPECTRA Reduction [facility] Specimen (Source) Anatomical Collection Method Collection Time Re ceived Time Location / / Volume Laterality 10/07/2021 10/08/2021 4:12 PM CDT Resulting Agency Comment Specimen source: Plasma Darren Youssef MD LAB BLOOD ORDERABLES Performing Organization Address City/[facility]/ZIP Code Phon e Number APS SPECTRA [facility] (ABNORMAL) POST CHEMISTRY (10/07/2021) P athologist Signature BUN Post 28 (H) 6 - 19 APS SPECTRA Dialysis mg/dL [facility] Specimen (Source) Anatomical Collection Method Collection Time Re ceived Time Location / / Volume Laterality 10/07/2021 10/08/2021 4:11 PM CDT Narrative APS SPECTRA [facility] - 10/08/2021 Unless otherwise specified, test(s) performed at: [facility], [address] [place] [id number] DESK REPORTER: Jacob Junior M.D. For any questions, please call customer service at FREQUENCY:MONTHLY Resulting Agency Comment Specimen source: Plasma Darren Youssef MD LAB BLOOD ORDERABLES Performing Organization Address [facility] [place]/[facility] Phon e Number APS SPECTRA [facility] (ABNORMAL) TRACE ELEMENTS (10/07/2021) P athologist Signature Aluminum 11 (H) 0 - 10 APS SPECTRA mcg/L [facility] Comment: This test was developed and its performa nce characteristics determined by [facility]. It has not been cleared or approved by the FDA. The laboratory is regulated under CLIA a s qualified to perform high complexity testing. This test is used fo r clinical purposes. It should not be regarded as investigational or fo r research. Specimen (Source) Anatomical Collection Method Collection Time Re ceived Time Location / / Volume Laterality 10/07/2021 10/08/2021 1:11 PM CDT Narrative APS SPECTRA [facility] - 10/08/2021 Unless otherwise specified, test(s) performed at: [facility], [address] [place] [id number] DESK REPORTER: Jacob Junior M.D. For any questions, please call customer service at FREQUENCY:MONTHLY Resulting Agency Comment Specimen source: Serum Darren Youssef MD LAB BLOOD ORDERABLES Performing Organization Address [facility] [place]/[facility] Phon e Number APS SPECTRA [facility] IMMUNO CHEMISTRY (10/07/2021) P athologist Signature Hep B Surface Negative Negative APS SPECTRA Ag [facility] Hepatitis B 289 mIU/mL APS SPECTRA Surface Ab [facility] Comment: The anti-HBs (Hepatitis B surface antibo dy) is greater than or equal to 10 mIU/mL and implies immunity. The ilnda ent has either had an antibody response to HBV vaccination, received a transfusion, or has recovered from HBV infection. For post-vaccination antibody testing guidelines for the general public, refer to MMWR Decemb 2004/Vol.54 (No. 16); -23, and for healthcare workers, refer to MMWR May 27, 2013/Vol.62 (No. 10); 1-18. Reference Range: <10 mIU/mL ? Non-Immune >=10 mIU/mL ?Immune The magnitude of the measured result abo ve 10 mIU/mL is not indicative of the total amount of antibody present. Hep B Core Total Ab Negative Negative APS SPECTR A [facility] Comment: Hep B Core Ab, Total appears during the acute infection stage and remains reactive/positive throughout the recovery stage. The above test result was obtained using Siemens Centaur XP chemiluminescent method. Results obtaine d with different assay methods or kits cannot be used interchangeably. Specimen (Source) Anatomical Collection Method Collection Time Re ceived Time Location / / Volume Laterality 10/07/2021 10/08/2021 9:49 AM CDT Narrative APS SPECTRA [facility] - 10/08/2021 Unless otherwise specified, test(s) performed at: [facility], [address] [place], [place] [id number] DESK REPORTER: Jacob Junior M.D. For any questions, please call customer service at FREQUENCY:MONTHLY Resulting Agency Comment Specimen source: Serum Darren Youssef MD LAB BLOOD ORDERABLES Performing Organization Address City/State/ZIP Code Phon e Number APS SPECTRA [facility] (ABNORMAL) Spectrae Chemistry (10/07/2021) [employer] Method Time Signature BUN 81 (H) 6 - 19 APS SPECTRA mg/dL [facility] Creatinine 12.96 (H) 0.60 - APS SPECTRA 1.30 [facility] mg/dL BUN/Creatinine 6.3 (L) 10.0 - APS SPECTRA Ratio 20.0 [facility] Sodium 139 136 - 145 APS SPECTRA mEq/L [facility] Potassium 3.9 3.5 - 5.1 APS SPECTRA mEq/L [facility] Chloride 102 96 - 108 APS SPECTRA mEq/L [facility] Bicarbonate 18 (L) 22 - 29 APS SPECTRA (CO2) mEq/L [facility] Calcium 8.4 8.4 - APS SPECTRA 10.2 [facility] mg/dL Corrected 8.6 8.4 - APS SPECTRA Calcium 10.2 [facility] mg/dL Comment: Corrected Calcium is not equivalent to m easured Ionized Calcium. Phosphorus 3.8 2.6 - 4.5 mg/dL APS SPECTRA [facility] Calcium Phosphorus Product 32 0 - 54 APS SPECTRA [facility] Calcium Phosporus Product, Cor 33 0 - 54 APS SPECTRA [facility] Alkaline Phosphatase 127 40 - 129 U/L APS SP ECTRA [facility] Total Protein 7.3 6.0 - 8.5 g/dL APS SPECTRA [facility] Albumin 3.8 3.5 - 5.2 g/dL APS SPECTRA [facility] [place] Globulin, Total 3.5 2.0 - 4.0 g/dL APS SPECT RA [facility] A/G Ratio 1.1 1.0 - 2.0 APS SPECTRA [facility] Magnesium 2.2 1.6 - 2.6 mg/dL APS SPECTRA [place] [facility] Iron 117 45 - 160 mcg/dL APS SPECTRA [place] [facility] UIBC 104 (L) 155 - 355 mcg/dL APS SPECTRA [facility] TIBC 221 185 - 515 mcg/dL APS SPECTRA K [facility] Iron Saturation (TSat) 53 20 - 55 % APS SPE CTRA [facility] Ferritin 753 (H) 22 - 322 ng/mL APS SPECTRA [facility] [place] Specimen (Source) Anatomical Collection Method Collection Time Re ceived Time Location / / Volume Laterality 10/07/2021 10/08/2021 9:49 AM CDT Narrative APS SPECTRA [facility] - 10/08/2021 Unless otherwise specified, test(s) performed at: [facility], [address] [place] [address] DESK REPORTER: Jacob Junior M.D. For any questions, please call customer service at FREQUENCY:MONTHLY Resulting Agency Comment Specimen source: Serum Darren Youssef MD LAB BLOOD ORDERABLES Performing Organization Address City/State/ZIP Code Phon e Number APS SPECTRA [facility] (ABNORMAL) HEMATOLOGY (10/07/2021) Analysis Performed At Patho logist Time Signature WBC 7.35 4.80 - APS SPECTRA 10.80 [facility] 1000/mcL RBC 3.59 (L) 4.70 - APS SPECTRA 6.10 [facility] mill/mcL Hemoglobin 11.5 (L) 14.0 - APS SPECTRA 18.0 g/dL [facility] Hemoglobin x 3 34.5 (L) 42.0 - APS SPECTRA 54.0 % [facility] Hematocrit 34.9 (L) 42.0 - APS SPECTRA 52.0 % [facility] MCV 97 80 - 100 APS SPECTRA fl [facility] MCH 31.9 (H) 27.0 - APS SPECTRA 31.0 pg [facility] MCHC 32.8 30.0 - APS SPECTRA 36.0 g/dL [facility] RDW 15.5 (H) 11.5 - APS SPECTRA 14.5 % [facility] Platelets 129 (L) 130 - 400 APS SPECTRA 1000/mcL [facility] Specimen (Source) Anatomical Collection Method Collection Time Re ceived Time Location / / Volume Laterality 10/07/2021 10/08/2021 9:27 AM CDT Narrative APS SPECTRA [facility] - 10/08/2021 Unless otherwise specified, test(s) performed at: [facility], [address] [place], [place] [id number] DESK REPORTER: Jacob Junior M.D. For any questions, please call customer service at FREQUENCY:MONTHLY Resulting Agency Comment Specimen source: Blood Darren Youssef MD LAB BLOOD ORDERABLES Performing Organization Address City/[facility] Phon e Number APS SPECTRA [facility] (ABNORMAL) Spectrae Chemistry (10/07/2021) P athologist Signature PTH 384 (H) 16 - 80 APS SPECTRA pg/mL [facility] Specimen (Source) Anatomical Collection Method Collection Time Re ceived Time Location / / Volume Laterality 10/07/2021 10/08/2021 9:21 AM CDT Narrative APS SPECTRA [facility] - 10/08/2021 Unless otherwise specified, test(s) performed at: [facility], [address] [place] [id number] DESK REPORTER: Jacob Junior M.D. For any questions, please call customer service at FREQUENCY:MONTHLY Resulting Agency Comment Specimen source: Plasma Darren Youssef MD LAB BLOOD ORDERABLES Performing Organization Address City/State/ZIP Code Phon e Number APS SPECTRA [facility] documented in this encounter Visit Diagnoses Not on filedocumented in this encounter
--- OUTSIDE RECORDS SUMMARY | 2022-04-17 14:29 | XMS_ITS | Encounter Summary ---
:1940 Author Organization [facility] Address [address] [place] [address] Care Team Providers Name Role Phone Unavailable Primary Care Provider Unavailable Encounter Details Date Type Department Care Team Description 05/28/2021 Orders Only [facility] O f [place] Provider, Trace Ordering [address] [place], [place] [phone] Social History Tobacco Use Types Packs/Day Years Used Date Smoking Tobacco: Never Assessed Sex Assigned at Date Recorded Not on file documented as of this encounter Plan of Treatment Not on filedocumented as of this encounter Procedures Procedure Name Priority Date/Time Associated Diagnosis Comme nts Healthy[facility] TRACE LAB RESULTS Routine 05/28/2021 Resul ts for this procedure are i n the results section . documented in this encounter Results Spectra TRACE Lab Results (05/28/2021) P athologist Signature eKt/V 1.40 [facility] ([place]) spKt/V 1.63 [facility] ([place] II) Specimen (Source) Anatomical Location Collection Method / Collectio n Time Received Time / Laterality Volume 05/28/2021 05/28/2021 [place] Ordering Provider LAB BLOOD ORDERABLES Performing Organization Address City/State/ZIP Code Phon e Number TRACE documented in this encounter Visit Diagnoses Not on filedocumented in this encounter
--- OUTSIDE RECORDS SUMMARY | 2022-04-17 14:29 | XMS_ITS | Encounter Summary ---
:1940 Author Organization [facility] Address [address] [place] [address] Care Team Providers Name Role Phone Unavailable Primary Care Provider Unavailable Encounter Details Date Type Department Care Team Description 11/06/2021 Orders Only [facility] O f Darren Escalante MD [phone] [place] [id number] [place], [place] [phone] (Wo rk) Social History Tobacco Use Types Packs/Day Years Used Date Smoking Tobacco: Never Assessed Sex Assigned at Date Recorded Not on file documented as of this encounter Plan of Treatment Not on filedocumented as of this encounter Procedures Procedure Name Priority Date/Time Associated Diagnosis Comme nts HD KINETICS Routine 11/06/2021 Results for thi s procedure are i n the results section . POST CHEMISTRY Routine 11/06/2021 Results for t his procedure are i n the results section . IMMUNO CHEMISTRY Routine 11/06/2021 Results for this procedure are i n the results section . HEMATOLOGY Routine 11/06/2021 Results for thi s procedure are i n the results section . CHEMISTRY Routine 11/06/2021 Results for thi s procedure are i n the results section . SPECTRA [place] LAB RESULTS Routine 11/06/2021 Resul ts for this procedure are i n the results section . documented in this encounter Results Spectra [place] Lab Results (11/06/2021) P athologist Signature eKt/V 1.28 [place] ([place]) eKdrt/V 1.30 [place] spKt/V 1.49 [place] ([place] II) eNPCR 1.05 [place] eKt/V [place] 1.30 [place] spKt/V [place] 1.53 [place] PCR 78.33 [place] nPCR_HD 1.13 [place] Specimen (Source) Anatomical Location Collection Method / Collectio n Time Received Time / Laterality Volume 11/06/2021 11/06/2021 [place] Ordering Provider LAB BLOOD ORDERABLES Performing Organization Address City/State/ZIP Code Phon e Number [place] HD KINETICS (11/06/2021) P athologist Signature % Urea 73 65 - 80 % APS SPECTRA Reduction [facility] Specimen (Source) Anatomical Collection Method Collection Time Re ceived Time Location / / Volume Laterality 11/06/2021 11/07/2021 11:4 2 PM CDT Resulting Agency Comment Specimen source: Plasma Darren Youssef MD LAB BLOOD ORDERABLES Performing Organization Address City/State/ZIP Code Phon e Number APS SPECTRA [facility] POST CHEMISTRY (11/06/2021) athologist Signature BUN Post 18 6 - 19 APS SPECTRA Dialysis mg/dL [facility] Specimen (Source) Anatomical Collection Method Collection Time Re ceived Time Location / / Volume Laterality 11/06/2021 11/07/2021 11:4 2 PM CDT Narrative APS SPECTRA [facility] - 11/08/2021 Unless otherwise specified, test(s) performed at: [facility], [address] [place] [address] JOY OPERATOR: Jacob Junior M.D. For any questions, please call customer service at FREQUENCY:MONTHLY Resulting Agency Comment Specimen source: Plasma Darren Youssef MD LAB BLOOD ORDERABLES Performing Organization Address City/State/ZIP Code Phon e Number APS SPECTRA [facility] (ABNORMAL) Spectrae Chemistry (11/06/2021) [facility] Method Time Signature BUN 66 (H) 6 - 19 APS SPECTRA mg/dL [facility] Creatinine 11.07 (H) 0.60 - APS SPECTRA 1.30 [facility] mg/dL BUN/Creatinine 6.0 (L) 10.0 - APS SPECTRA Ratio 20.0 [facility] Sodium 141 136 - 145 APS SPECTRA mEq/L [facility] Potassium 3.9 3.5 - 5.1 APS SPECTRA mEq/L [facility] Chloride 98 96 - 108 APS SPECTRA mEq/L [facility] Bicarbonate 26 22 - 29 APS SPECTRA (CO2) mEq/L [facility] Calcium 9.2 8.4 - APS SPECTRA 10.2 [facility] mg/dL Corrected 9.3 8.4 - APS SPECTRA Calcium 10.2 [facility] mg/dL Comment: Corrected Calcium is not equivalent to m easured Ionized Calcium. Phosphorus 3.6 2.6 - 4.5 mg/dL APS SPECTRA [facility] Calcium Phosphorus Product 33 0 - 54 APS SPECTRA [facility] Calcium Phosporus Product, Cor 33 0 - 54 APS SPECTRA [facility] Total Protein 7.3 6.0 - 8.5 g/dL APS SPECTRA [facility] Albumin 3.9 3.5 - 5.2 g/dL APS SPECTRA [facility] [place] Globulin, Total 3.4 2.0 - 4.0 g/dL APS SPECT RA [facility] A/G Ratio 1.1 1.0 - 2.0 APS SPECTRA [facility] Iron 103 45 - 160 mcg/dL APS SPECTRA [place] [facility] UIBC 128 (L) 155 - 355 mcg/dL APS SPECTRA [facility] TIBC 231 185 - 515 mcg/dL APS SPECTRA [facility] Iron Saturation (TSat) 45 20 - 55 % APS SPE CTRA [facility] Specimen (Source) Anatomical Collection Method Collection Time Re ceived Time Location / / Volume Laterality 11/06/2021 11/07/2021 6:51 PM CDT Narrative APS SPECTRA [facility] - 11/08/2021 Unless otherwise specified, test(s) performed at: [facility], [address] [place] [id number] JOY OPERATOR: Jacob Junior M.D. For any questions, please call customer service at FREQUENCY:MONTHLY Resulting Agency Comment Specimen source: Serum Darren Youssef MD LAB BLOOD ORDERABLES Performing Organization Address City/State/ZIP Code Phon e Number APS SPECTRA [facility] (ABNORMAL) HEMATOLOGY (11/06/2021) Analysis Performed At Patho logist Time Signature WBC 5.85 4.80 - APS SPECTRA 10.80 [facility] 1000/mcL RBC 3.18 (L) 4.70 - APS SPECTRA 6.10 [facility] mill/mcL Hemoglobin 10.2 (L) 14.0 - APS SPECTRA 18.0 g/dL [facility] Hemoglobin x 3 30.6 (L) 42.0 - APS SPECTRA 54.0 % [facility] Hematocrit 30.9 (L) 42.0 - APS SPECTRA 52.0 % [facility] MCV 97 80 - 100 APS SPECTRA fl [facility] MCH 31.9 (H) 27.0 - APS SPECTRA 31.0 pg [facility] MCHC 32.8 30.0 - APS SPECTRA 36.0 g/dL [facility] RDW 15.3 (H) 11.5 - APS SPECTRA 14.5 % [facility] Platelets 140 130 - 400 APS SPECTRA 1000/mcL [facility] Specimen (Source) Anatomical Collection Method Collection Time Re ceived Time Location / / Volume Laterality 11/06/2021 11/07/2021 8:19 PM CDT Narrative APS SPECTRA [facility] - 11/08/2021 Unless otherwise specified, test(s) performed at: [facility], [address] [place] [address] JOY OPERATOR: Jacob Junior M.D. For any questions, please call customer service at FREQUENCY:MONTHLY Resulting Agency Comment Specimen source: Blood aDrren Youssef MD LAB BLOOD ORDERABLES Performing Organization Address City/State/ZIP Code Phon e Number APS SPECTRA [facility] IMMUNO CHEMISTRY (11/06/2021) athologist Signature Hepatitis B 248 mIU/mL APS SPECTRA Surface Ab [facility] Comment: [...] total amount of antibody present. Hep B Surface Ag Negative Negative APS SPECTRA [facility] Specimen (Source) Anatomical Collection Method Collection Time Re ceived Time Location / / Volume Laterality 11/06/2021 11/07/2021 6:51 PM CDT Narrative APS SPECTRA [facility] - 11/07/2021 Unless otherwise specified, test(s) performed at: [facility], [address] [place] [phone] JOY OPERATOR: Jacob Junior M.D. For any questions, please call customer service at FREQUENCY:MONTHLY Resulting Agency Comment Specimen source: Serum Darren Youssef MD LAB BLOOD ORDERABLES Performing Organization Address City/State/ZIP Code Phon e Number APS SPECTRA [facility] documented in this encounter Visit Diagnoses Not on filedocumented in this encounter
--- OUTSIDE RECORDS SUMMARY | 2022-04-17 14:29 | XMS_ITS | Encounter Summary ---
:1940 Author Organization [facility] Address [address] [place] [address] Care Team Providers Name Role Phone Unavailable Primary Care Provider Unavailable Encounter Details Date Type Department Care Team Description 08/20/2021 Orders Only [facility] [place] Provider, Trace Ordering [address] [place], [place] [phone] Social History Tobacco Use Types Packs/Day Years Used Date Smoking Tobacco: Never Assessed Sex Assigned at Date Recorded Not on file documented as of this encounter Plan of Treatment Not on filedocumented as of this encounter Procedures Procedure Name Priority Date/Time Associated Diagnosis Comme nts SPECTRA TRACE LAB RESULTS Routine 08/20/2021 Resul ts for this procedure are i n the results section . documented in this encounter Results Spectra TRACE Lab Results (08/20/2021) P athologist Signature PCR 63.62 TRACE nPCR_HD 0.98 TRACE eKt/V 1.34 TRACE ([place]) eKt/V Gotch 1.38 TRACE eKdrt/V 1.38 TRACE spKt/V 1.55 TRACE ([place] II) eNPCR 0.94 TRACE spKt/V Gotch 1.62 TRACE Specimen (Source) Anatomical Location Collection Method / Collectio n Time Received Time / Laterality Volume 08/20/2021 08/20/2021 Trace Ordering Provider LAB BLOOD ORDERABLES Performing Organization Address City/State/ZIP Code Phon e Number TRACE documented in this encounter Visit Diagnoses Not on filedocumented in this encounter
--- OUTSIDE RECORDS SUMMARY | 2022-04-17 14:29 | XMS_ITS | Encounter Summary ---
:1940 Author Organization [facility] Address [address] [place] [address] Care Team Providers Name Role Phone Unavailable Primary Care Provider Unavailable Encounter Details Date Type Department Care Team Description 01/01/2022 Treatment [facility] Darren Singh MD [address] [place], [place] [phone] (Wo rk) Social History Tobacco Use Types Packs/Day Years Used Date Smoking Tobacco: Never Assessed Sex Assigned at Date Recorded Not on file documented as of this encounter Miscellaneous Notes Dialysis Note - Darren Youssef MD - 01/01/2022 11:54 AM CDT Date: Jan 01, 2022 Patient Name: Korey Mackay : 1940 Chart #: [id number] Sex: M This patient was personally seen for a basic visit as part of routine weekly dialysis care. A reviewof the dialysis treatment, blood pressure, estimated dry weight and recent lab values was made. These were discussed with the patient and staff as necessary. Treatment Data for 01/01/2022 started at:10:55 AM Dialyzer: 180NRe Optiflux Na: 137 mEq/L Bicarb: 37 mEq/L Dialysate: 2.0 K, 2.5 Ca, 1.0 Mg, 100 Dextrose (G2251) Dialysate/Machine Temp (prescribed): 37 C Dialysate/Machine Temp (actual): 37.3 C BFR (prescribed): 500 BFR (actual): 500 Prescribed time: 03:30 EDW: 99.5 kg Access Type: Active (In Use):AVFistula-Standard/Left Forearm Pre Dialysis Vitals (for 01/01/2022 10:49 AM ) Pre BP (sit): 104/60 Pre Wt: 102.6 kg Temp: 98 F Post Dialysis Vitals (for 12/30/2021 2:19 PM ) Post BP (sit): 112/54 Post Wt: 99.8 kg Current Dialysis Vitals (for 01/01/2022 11:33 AM ) BP (sit): 125/64 AP(-) / CORPORATE FITNESS PROGRAM COORDINATOR: 219/236 Pulse: 70 Chairside data as of 01/01/2022 11:33 AM Last 3 Treatments 12/30/2021 12/27/2021 12/25/2021 EDW (kg) 99.5 99.5 99.5 Weight Pre (kg) 102.3 101.8 102.8 Weight Post (kg) 99.8 99.1 99.6 Dialytic Weight Loss (kg) -2.5 -2.7 -3.2 EDW Deviation (kg) 0.3 -0.4 0.1 BP Sit Pre 122/60 102/54 109/58 BP Sit Post 112/54 135/66 129/74 UF Rate (mL/kg/hr) 7 8 9 Prescribed BFR 500 500 500 Average Delivered BFR 510 500 510 Prescribed Treatment Time 03:30 03:30 03:30 Actual Treatment Time 03:30 03:30 03:30 Last 3 Values 11/15/2021 09/07/2021 08/13/2021 Access Flow 112 6142 1142 Treatment Medication Orders Medication Sig Start Date End Date Heparin Sodium (Porcine) 1,000 Units/mL Systemic 2000 units IVP Every Treatment 10/07/2021 10/06/2022 Vitamin D (Calcitriol) Oral 0.5 mcg ORAL Every Treatment 12/16/2021 12/15/2022 SPRING COILER: Darren Youssef MD LOCATION: [phone] SCHEDULE: -- 2nd Shift ACCESS: EDW: kg. DIALYZER: HD DURATION: NEEDLE SIZE: ANTICOAG: BATH: QB: ml/min QD: ml/min Subjective No new complaints. Tolerating dialysis well. 01/01: Had big bday green party for his , went well. He feels well. Got dentures fixed in [place], working better. No CP, SOB, edema. 12/18/21: Anxious to get bottom dentures fixed, going to [place] this month for this for expertise there. [...] edema, cramps. 10/30/21: Korey is back from [place] for the summer. He says things went well there. He has no concerns today, feels things are going well, not using clamps on access anymore and less bruising and access working well. He denies CP, SOB, edema. 05/22/21: He is upset about lack of good times at HD unit in [place]. No new symptoms. Feels well today otherwise. Should get at or very close to dry weight today. Labs reviewed with him, overall excellent. 04/24/21: Many complaints today, brings up his bad experience at [facility] again, concerned about new person doing his [...] had becerril taken out, says Urologist in [place] told him to have nurses at dialysis [...] until follow-up next month with Urology in [place]. Still with hematuria but low UOP he reports (70 mL this am from overnight). Hgb slow to improve in setting of infection. 11/07/20: Notes below from Dr. Sky. I am meeting patient today for first time. He transferred from [facility] - he was unhappy with staff there [...] No sob eating well. Will go to [place] soon for the winter. 04/30/20. Pt feels well, denies sob, eating wlll, no new complaints. He decided against urology onsult for his gross hematuria. going to [place] on Thursday. Will show up there Thursday. 09/24/20 No new complaints at this time, Just back from [place]. 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 He now has two homes, one in [place] and one in [place]. He and his winter in [place]. They have one daughter that lives in [place], [place] and they have one son (who's had drug problems). Exam Respiratory - Clear to auscultation bilaterally. nl effort Cardiovascular Regular rate. Regular rhythm. No murmur heard. Edema - No leg edema. Access - LUE AVF with small aneurysms and excellent t/b [place] Medication List Medication Sig Start Date Milo Low Dose Aspirin (aspirin) 81 mg tablet,delayed release (DR/EC) Take 1 tablet by mouth once a day Dialyvite (b complex 06-ersnt-s-biot-zinc) [phone] du-mb-jie-mg tablet Take 1 tablet by mouth once [...] and no changes were made. BUN mg/dL 68 (12/11/21) 66 (11/06/21) 61 [...] (11/06/21) 1.4200 (10/16/21) 1.2500 (10/07/21) 1.4300 (09/10/21) HEMOGLOBIN (G/DL) IN BLOOD g/dL 10.0 (12/25/21) 10.2 (12/18/21) 9.8 (12/11/21) 9.8 (12/04/21) 10.1 (11/27/21) PLATELETS 1000/mcL 107 (12/11/21) 140 (11/06/21) 129 (10/07/21) 149 (05/08/21) 147 (04/10/21) IRON SATURATION % 45 (11/06/21) 53 (10/07/21) 25 (05/08/21) 34 (04/10/21) 45 (03/13/21) FERRITIN ng/mL 620 (12/11/21) 715 (11/20/21) 753 (10/07/21) 761 (03/13/21) 881 (03/06/21) ALBUMIN (G/DL) g/dL 4.0 (12/11/21) 3.9 (11/06/21) 3.8 (10/07/21) Sodium mEq/L 139 (12/11/21) 141 (11/06/21) 139 (10/07/21) POTASSIUM (MMOL/L) IN SER/PLAS mEq/L 3.9 (12/11/21) 3.9 (11/06/21) 3.9 (10/07/21) BICARBONATE (CO2) mEq/L 26 (12/11/21) 26 (11/06/21) 18 (10/07/21) 25 OH VITAMIN D ng/mL 71.8 (12/12/20) 62.5 (10/29/20) BUN/CREATININE (MASS RATIO) IN SER/PLAS 6.9 (12/11/21) 6.0 (11/06/21) 6.3 (10/07/21) CALCIUM mg/dL 8.5 (12/11/21) 9.2 (11/06/21) 8.4 (10/07/21) Calcium Phos Product 44 (12/11/21) 33 (11/06/21) 32 (10/07/21) CALCIUM (MG/DL) CORRECTED FOR ALBUMIN IN SER/PLAS mg/dL 8.5 (12/11/21) 9.3 (11/06/21) 8.6 (10/07/21) PHOSPHATE (MG/DL) IN SER/PLAS mg/dL 5.2 (12/11/21) 3.6 (11/06/21) 3.8 (10/07/21) IPTH pg/mL 699 (12/11/21) 384 (10/07/21) 176 (03/13/21) Vascular Access Assessment: Type of access: Fistula Surgeon - Urena Staff and patient report access is working well. Impression and Plan Stable on dialysis No changes made today Darren Youssef MD [ Signed And locked electronically On 01/01/2022 at 11:55:41 AM ] Transcribed: Darren Youssef ( 01/01/2022 ) documented in this encounter Plan of Treatment Not on filedocumented as of this encounter Visit Diagnoses Not on filedocumented in this encounter
--- OUTSIDE RECORDS SUMMARY | 2022-04-17 14:29 | XMS_ITS | Encounter Summary ---
:1940 Author Organization [facility] Address [address] [place] [address] Care Team Providers Name Role Phone Unavailable Primary Care Provider Unavailable Encounter Details Date Type Department Care Team Description 05/22/2021 Orders Only [facility] O f Darren Escalante MD [address] [place] [address] [place], [place] [phone] (Wo rk) Social History Tobacco Use Types Packs/Day Years Used Date Smoking Tobacco: Never Assessed Sex Assigned at Date Recorded Not on file documented as of this encounter Plan of Treatment Not on filedocumented as of this encounter Procedures Procedure Name Priority Date/Time Associated Diagnosis Comme nts HEMATOLOGY Routine 05/22/2021 Results for thi s procedure are in the resu lts section. documented in this encounter Results (ABNORMAL) HEMATOLOGY (05/22/2021) Analysis Performed At Patho logist Time Signature Hemoglobin 11.9 (L) 14.0 - [facility] 18.0 g/dL [facility] Hemoglobin x 3 35.7 (L) 42.0 - APS [facility]RA 54.0 % [facility] Specimen (Source) Anatomical Collection Method Collection Time Re ceived Time Location / / Volume Laterality 05/22/2021 05/23/2021 2:13 PM LABOR UNION BUSINESS REPRESENTATIVE Narrative [facility]PS [facility] - 05/23/2021 Unless otherwise specified, test(s) performed at: [facility], [address] [place] [id number] PRODUCTION MATERIAL HANDLER: Jacob Junior M.D. For any questions, please call customer service at FREQUENCY:OTHER Resulting Agency Comment Specimen source: Blood Darren Youssef MD LAB BLOOD ORDERABLES Performing Organization Address City/State/ZIP Code Phon e Number [facility]PS SPECTRA [facility] documented in this encounter Visit Diagnoses Not on filedocumented in this encounter
--- OUTSIDE RECORDS SUMMARY | 2022-04-17 14:29 | XMS_ITS | Encounter Summary ---
:1940 Author Organization [facility] Address [address] [place] [address] Care Team Providers Name Role Phone Unavailable Primary Care Provider Unavailable Encounter Details Date Type Department Care Team Description 10/16/2021 Orders Only [facility] O f Darren Escalante MD [address] [place] [address] [place], [place] [phone] (Wo rk) Social History Tobacco Use Types Packs/Day Years Used Date Smoking Tobacco: Never Assessed Sex Assigned at Date Recorded Not on file documented as of this encounter Plan of Treatment Not on filedocumented as of this encounter Procedures Procedure Name Priority Date/Time Associated Diagnosis Comme nts HD KINETICS Routine 10/16/2021 Results for thi s procedure are i n the results section . POST CHEMISTRY Routine 10/16/2021 Results for t his procedure are i n the results section . HEMATOLOGY Routine 10/16/2021 Results for thi s procedure are i n the results section . CHEMISTRY Routine 10/16/2021 Results for thi s procedure are i n the results section . SPECTRA [facility] LAB RESULTS Routine 10/16/2021 Resul ts for this procedure are i n the results section . documented in this encounter Results Spectra [place] Lab Results (10/16/2021) P athologist Signature eKdrt/V 1.25 [place] spKt/V 1.42 [place] (Daugirdas II) eKt/V 1.22 [place] ([place]) spKt/V Gotch 1.47 [place] eNPCR 0.97 [place] nPCR_HD 1.05 [place] eKt/V Gotch 1.25 [place] PCR 71.51 [place] Specimen (Source) Anatomical Location Collection Method / Collectio n Time Received Time / Laterality Volume 10/16/2021 10/16/2021 [place] Ordering Provider LAB BLOOD ORDERABLES Performing Organization Address City/State/ZIP Code Phon e Number [place] HD KINETICS (10/16/2021) P athologist Signature % Urea 70 65 - 80 % APS SPECTRA Reduction [facility] Specimen (Source) Anatomical Collection Method Collection Time Re ceived Time Location / / Volume Laterality 10/16/2021 10/17/2021 7:25 PM CDT Narrative [facility]PS SPECTRA [facility] - 10/18/2021 Unless otherwise specified, test(s) performed at: [facility], [address] [place] [address] CALL CENTER DIRECTOR: Jacob Junior M.D. For any questions, please call customer service at FREQUENCY:OTHER Resulting Agency Comment Specimen source: Serum Darern Youssef MD LAB BLOOD ORDERABLES Performing Organization Address City/[facility] Phon e Number APS SPECTRA [facility] (ABNORMAL) Spectrae Chemistry (10/16/2021) P athologist Signature BUN 61 (H) 6 - 19 [facility] mg/dL [facility] Specimen (Source) Anatomical Collection Method Collection Time Re ceived Time Location / / Volume Laterality 10/16/2021 10/17/2021 7:24 PM CDT Narrative APS SPECTRA [facility] - 10/18/2021 Unless otherwise specified, test(s) performed at: [facility], [address] [place] [phone] CALL CENTER DIRECTOR: Jacob Junior M.D. For any questions, please call customer service at FREQUENCY:OTHER Resulting Agency Comment Specimen source: Serum Darren Youssef MD LAB BLOOD ORDERABLES Performing Organization Address City/[facility] Phon e Number [facility]PS SPECTRA [facility] (ABNORMAL) HEMATOLOGY (10/16/2021) Analysis Performed At Patho logist Time Signature Hemoglobin 10.6 (L) 14.0 - [facility] 18.0 g/dL [facility] Hemoglobin x 3 31.8 (L) 42.0 - [facility] 54.0 % [facility] Specimen (Source) Anatomical Collection Method Collection Time Re ceived Time Location / / Volume Laterality 10/16/2021 10/17/2021 11:4 2 AM CDT Narrative APS SPECTRA [facility] - 10/17/2021 Unless otherwise specified, test(s) performed at: [facility], [address] [place] [id number] CALL CENTER DIRECTOR: Jacob Junior M.D. For any questions, please call customer service at FREQUENCY:OTHER Resulting Agency Comment Specimen source: Blood Darren Youssef MD LAB BLOOD ORDERABLES Performing Organization Address City/[facility] Code Phon e Number [facility]PS SPECTRA [facility] POST CHEMISTRY (10/16/2021) P athologist Signature BUN Post 18 6 - 19 APS SPECTRA Dialysis mg/dL [facility] Specimen (Source) Anatomical Collection Method Collection Time Re ceived Time Location / / Volume Laterality 10/16/2021 10/17/2021 11:4 4 AM CDT Narrative APS SPECTRA [facility] - 10/17/2021 Unless otherwise specified, test(s) performed at: [facility], [address] [place] [id number] CALL CENTER DIRECTOR: Jacob Junior M.D. For any questions, please call customer service at FREQUENCY:OTHER Resulting Agency Comment Specimen source: Plasma Darren Youssef MD LAB BLOOD ORDERABLES Performing Organization Address City/State/ZIP Code Phon e Number APS SPECTRA [facility] documented in this encounter Visit Diagnoses Not on filedocumented in this encounter
--- OUTSIDE RECORDS SUMMARY | 2022-04-17 14:29 | XMS_ITS | Encounter Summary ---
:1940 Author Organization [facility] Address [address] [place] [address] Care Team Providers Name Role Phone Unavailable Primary Care Provider Unavailable Encounter Details Date Type Department Care Team Description 07/23/2021 Orders Only [facility] O f ETTA Provider, Trace Ordering [address] [place], [place] [phone] Social History Tobacco Use Types Packs/Day Years Used Date Smoking Tobacco: Never Assessed Sex Assigned at Date Recorded Not on file documented as of this encounter Plan of Treatment Not on filedocumented as of this encounter Procedures Procedure Name Priority Date/Time Associated Diagnosis Comme nts SPECTRA TRACE LAB RESULTS Routine 07/23/2021 Resul ts for this procedure are i n the results section . documented in this encounter Results Spectra TRACE Lab Results (07/23/2021) P athologist Signature eKt/V Gotch 1.24 TRACE eKdrt/V 1.24 TRACE spKt/V 1.41 TRACE (Daugirdas II) spKt/V Gotch 1.46 TRACE nPCR_HD 0.94 TRACE PCR 66.94 TRACE eKt/V 1.22 TRACE ([place]) eNPCR 0.89 TRACE Specimen (Source) Anatomical Location Collection Method / Collectio n Time Received Time / Laterality Volume 07/23/2021 07/23/2021 Trace Ordering Provider LAB BLOOD ORDERABLES Performing Organization Address City/State/ZIP Code Phon e Number TRACE documented in this encounter Visit Diagnoses Not on filedocumented in this encounter
--- OUTSIDE RECORDS SUMMARY | 2022-04-17 14:29 | XMS_ITS | Encounter Summary ---
:1940 Author Organization [facility] Address [address] [place] [address] Care Team Providers Name Role Phone Unavailable Primary Care Provider Unavailable Encounter Details Date Type Department Care Team Description 12/04/2021 Treatment [facility] Darren Singh MD [address] [place], [place] [phone] (Wo rk) Social History Tobacco Use Types Packs/Day Years Used Date Smoking Tobacco: Never Assessed Sex Assigned at Date Recorded Not on file documented as of this encounter Miscellaneous Notes Dialysis Note - Darren Youssef MD - 12/04/2021 12:37 PM CDT Date: Dec 04, 2021 Patient Name: Korey Mackay : 1940 Chart #: [id number] Sex: M This patient was personally seen for a basic visit as part of routine weekly dialysis care. A reviewof the dialysis treatment, blood pressure, estimated dry weight and recent lab values was made. These were discussed with the patient and staff as necessary. Treatment Data for 12/04/2021 started at:10:52 AM Dialyzer: 180NRe Optiflux Na: 137 mEq/L Bicarb: 37 mEq/L Dialysate: 2.0 K, 2.5 Ca, 1.0 Mg, 100 Dextrose (G2251) Dialysate/Machine Temp (prescribed): 37 C Dialysate/Machine Temp (actual): 36.9 C BFR (prescribed): 500 BFR (actual): 450 Prescribed time: 03:30 EDW: 99 kg Access Type: Active (In Use):AVFistula-Standard/Left Forearm Pre Dialysis Vitals (for 12/04/2021 10:45 AM ) Pre BP (sit): 116/72 Pre Wt: 104.9 kg Temp: 97.7 F Post Dialysis Vitals (for 12/02/2021 2:24 PM ) Post BP (sit): 123/60 Post Wt: 101.3 kg Current Dialysis Vitals (for 12/04/2021 12:32 PM ) BP (sit): 93/53 AP(-) / FAUCET POLISHER: 192/208 Pulse: 69 Chairside data as of 12/04/2021 12:32 PM Last 3 Treatments 12/02/2021 11/29/2021 11/27/2021 EDW (kg) 99 99 99 Weight Pre (kg) 105.3 102.6 102.2 Weight Post (kg) 101.3 100.1 99.1 Dialytic Weight Loss (kg) -4 -2.5 -3.1 EDW Deviation (kg) 2.3 1.1 0.1 BP Sit Pre 134/67 133/64 140/64 BP Sit Post 123/60 116/49 123/65 UF Rate (mL/kg/hr) 11 7 9 Prescribed BFR 500 500 500 Average Delivered BFR 460 460 510 Prescribed Treatment Time 03:30 03:30 03:30 Actual Treatment Time 03:31 03:31 03:31 Last 3 Values 11/15/2021 09/07/2021 08/13/2021 Access Flow 215 3673 1142 Treatment Medication Orders Medication Sig Start Date End Date Heparin Sodium (Porcine) 1,000 Units/mL Systemic 2000 units IVP Every Treatment 10/07/2021 10/06/2022 Mircera 50 mcg IVP Every 2 weeks 10/30/2021 10/29/2022 Vitamin D (Calcitriol) Oral 0.25 mcg ORAL Every Treatment 10/16/2021 10/15/2022 SAWMILL RELIEF WORKER: Darren Youssef MD LOCATION: [phone] SCHEDULE: -- Shift ACCESS: EDW: kg. DIALYZER: HD DURATION: NEEDLE SIZE: ANTICOAG: BATH: QB: ml/min QD: ml/min Subjective No new complaints. Tolerating dialysis well. 12/04/21: Doing well overall, stable dialysis, BP controlled, above dry weight on Thursday but should get to EDW today. Dentures on bottom don't fit right, delay in re-fitting as his dentist has COVID. Tanaes CP, SOB, edema, muscle cramps, nausea. 11/13/21: [...] of good times at HD unit in [place]. No new symptoms. Feels well today otherwise. Should get at or very close to dry weight today. Labs reviewed with him, overall excellent. 04/24/21: Many complaints today, brings up his bad experience at [facility] again, concerned about new person doing [...] had becerril taken out, says Urologist in [place] told him to have nurses at dialysis [...] until follow-up next month with Urology in [place]. Still with hematuria but low UOP he reports (70 mL this am from overnight). Hgb slow to improve in setting of infection. 11/07/20: Notes below from Dr. Sky. I am meeting patient today for first time. 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 He now has two homes, one in [place] and one in [place]. He and his winter in [place]. They have one daughter that lives in [place], [place] and they have one son (who's had drug problems). Exam Respiratory - Clear to auscultation bilaterally. Cardiovascular Regular rate. Regular rhythm. No murmur heard. Edema - No leg edema. Access - LUE AVF with small aneurysms and excellent t/b QAGAN TAYAGUNGIN Medication List Medication Sig Start Date Milo Low Dose Aspirin (aspirin) 81 mg tablet,delayed release (DR/EC) Take 1 tablet by mouth once a day Dialyvite (b complex 16-nuhrs-o-biot-zinc) [phone] qt-rq-taq-mg tablet Take 1 tablet by mouth once [...] and no changes were made. BUN mg/dL 66 (11/06/21) 61 (10/16/21) 81 (10/07/21) 50 (05/08/21) 56 (04/10/21) UREA NITROGEN (MG/DL) IN SER/PLAS - POST DIALYSIS mg/dL 18 (11/06/21) 18 (10/16/21) 28 (10/07/21) 15 (05/08/21) 18 (04/10/21) URR % 73 (11/06/21) 70 (10/16/21) 65 (10/07/21) 70 (05/08/21) 68 (04/10/21) spKt/V Gotch 1.53 (11/06/21) 1.47 (10/16/21) 1.47 (09/10/21) 1.62 (08/20/21) 1.43 (08/06/21) eKdrt/V 1.3 (11/06/21) 1.25 (10/16/21) 1.25 (09/10/21) 1.38 (08/20/21) 1.22 (08/06/21) spKt/V (Daugirdas II) 1.4900 (11/06/21) 1.4200 (10/16/21) 1.2500 (10/07/21) 1.4300 (09/10/21) 1.5500 (08/20/21) HEMOGLOBIN (G/DL) IN BLOOD g/dL 10.1 (11/27/21) 10.0 (11/20/21) 9.5 (11/13/21) 10.2 (11/06/21) 9.9 (10/30/21) PLATELETS 1000/mcL 140 (11/06/21) 129 (10/07/21) 149 (05/08/21) 147 (04/10/21) 179 (03/13/21) IRON SATURATION % 45 (11/06/21) 53 (10/07/21) 25 (05/08/21) 34 (04/10/21) 45 (03/13/21) FERRITIN ng/mL 715 (11/20/21) 753 (10/07/21) 761 (03/13/21) 881 (03/06/21) 608 (12/12/20) ALBUMIN (G/DL) g/dL 3.9 (11/06/21) 3.8 (10/07/21) 3.8 (05/08/21) Sodium mEq/L 141 (11/06/21) 139 (10/07/21) 140 (05/08/21) POTASSIUM (MMOL/L) IN SER/PLAS mEq/L 3.9 (11/06/21) 3.9 (10/07/21) 4.4 (05/08/21) BICARBONATE (CO2) mEq/L 26 (11/06/21) 18 (10/07/21) 24 (05/08/21) 25 [place] VITAMIN D ng/mL 71.8 (12/12/20) 62.5 (10/29/20) BUN/CREATININE (MASS RATIO) IN SER/PLAS 6.0 (11/06/21) 6.3 (10/07/21) 5.3 (05/08/21) Calcium mg/dL 9.2 (11/06/21) 8.4 (10/07/21) 9.0 (05/08/21) Calcium Phos Product 33 (11/06/21) 32 (10/07/21) 37 (05/08/21) CALCIUM (MG/DL) CORRECTED FOR ALBUMIN IN SER/PLAS mg/dL 9.3 (11/06/21) 8.6 (10/07/21) 9.2 (05/08/21) PHOSPHATE (MG/DL) IN SER/PLAS mg/dL 3.6 (11/06/21) 3.8 (10/07/21) 4.1 (05/08/21) IPTH pg/mL 384 (10/07/21) 176 (03/13/21) 251 (01/09/21) Vascular Access Assessment: Type of access: Fistula Surgeon - Urena Staff and patient report access is working well. Impression and Plan Stable on dialysis No changes made today Darren Youssef MD [ Signed And locked electronically On 12/04/2021 at 12:38:44 PM ] Transcribed: Darren Youssef ( 12/04/2021 ) documented in this encounter Plan of Treatment Not on filedocumented as of this encounter Visit Diagnoses Not on filedocumented in this encounter
--- OUTSIDE RECORDS SUMMARY | 2022-04-17 14:29 | XMS_ITS | Encounter Summary ---
:1940 Author Organization [facility] Address [address] [place] [address] Care Team Providers Name Role Phone Unavailable Primary Care Provider Unavailable Encounter Details Date Type Department Care Team Description 09/10/2021 Orders Only [facility] O f ETTA Provider, Trace Ordering [address] [place], [place] [phone] Social History Tobacco Use Types Packs/Day Years Used Date Smoking Tobacco: Never Assessed Sex Assigned at Date Recorded Not on file documented as of this encounter Plan of Treatment Not on filedocumented as of this encounter Procedures Procedure Name Priority Date/Time Associated Diagnosis Comme nts SPECTRA TRACE LAB RESULTS Routine 09/10/2021 Resul ts for this procedure are i n the results section . documented in this encounter Results Spectra TRACE Lab Results (09/10/2021) P athologist Signature PCR 66.61 TRACE spKt/V Gotch 1.47 TRACE eKdrt/V 1.25 TRACE eNPCR 0.98 TRACE eKt/V 1.22 TRACE ([place]) eKt/V Gotch 1.25 TRACE spKt/V 1.43 TRACE (Daugirdas II) nPCR_HD 1.03 TRACE Specimen (Source) Anatomical Location Collection Method / Collectio n Time Received Time / Laterality Volume 09/10/2021 09/10/2021 Tarce Ordering Provider LAB BLOOD ORDERABLES Performing Organization Address City/State/ZIP Code Phon e Number TRACE documented in this encounter Visit Diagnoses Not on filedocumented in this encounter
--- OUTSIDE RECORDS SUMMARY | 2022-04-17 14:29 | XMS_ITS | Encounter Summary ---
:1940 Author Organization [facility] Address [address] [place] [address] Care Team Providers Name Role Phone Unavailable Primary Care Provider Unavailable Encounter Details Date Type Department Care Team Description 06/18/2021 Orders Only [facility] O f ETTA Provider, Trace Ordering [address] [place], [place] [phone] Social History Tobacco Use Types Packs/Day Years Used Date Smoking Tobacco: Never Assessed Sex Assigned at Date Recorded Not on file documented as of this encounter Plan of Treatment Not on filedocumented as of this encounter Procedures Procedure Name Priority Date/Time Associated Diagnosis Comme nts SPECTRA TRACE LAB RESULTS Routine 06/18/2021 Resul ts for this procedure are i n the results section . documented in this encounter Results Spectra TRACE Lab Results (06/18/2021) P athologist Signature PCR 67.67 TRACE nPCR_HD 0.93 TRACE eKt/V Gotch 1.30 TRACE eNPCR 0.88 TRACE spKt/V Gotch 1.53 TRACE eKt/V 1.30 TRACE ([place]) spKt/V 1.51 TRACE ([place] II) eKdrt/V 1.30 TRACE Specimen (Source) Anatomical Location Collection Method / Collectio n Time Received Time / Laterality Volume 06/18/2021 06/18/2021 Trace Ordering Provider LAB BLOOD ORDERABLES Performing Organization Address City/State/ZIP Code Phon e Number TRACE documented in this encounter Visit Diagnoses Not on filedocumented in this encounter
--- OUTSIDE RECORDS SUMMARY | 2022-04-17 14:29 | XMS_ITS | Encounter Summary ---
:1940 Author Organization [facility] Address [address] [place] [address] Care Team Providers Name Role Phone Unavailable Primary Care Provider Unavailable Encounter Details Date Type Department Care Team Description 07/30/2021 Orders Only [facility] f ETTA Provider, Trace Ordering [address] [place], [place] [phone] Social History Tobacco Use Types Packs/Day Years Used Date Smoking Tobacco: Never Assessed Sex Assigned at Date Recorded Not on file documented as of this encounter Plan of Treatment Not on filedocumented as of this encounter Procedures Procedure Name Priority Date/Time Associated Diagnosis Comme nts SPECTRA TRACE LAB RESULTS Routine 07/30/2021 Resul ts for this procedure are i n the results section . documented in this encounter Results Spectra TRACE Lab Results (07/30/2021) P athologist Signature eNPCR 0.91 TRACE eKt/V Gotch 1.26 TRACE nPCR_HD 0.95 TRACE spKt/V 1.43 TRACE ([place] II) eKt/V 1.23 TRACE ([place]) spKt/V Gotch 1.47 TRACE PCR 65.38 TRACE eKdrt/V 1.26 TRACE Specimen (Source) Anatomical Location Collection Method / Collectio n Time Received Time / Laterality Volume 07/30/2021 07/30/2021 Trace Ordering Provider LAB BLOOD ORDERABLES Performing Organization Address City/State/ZIP Code Phon e Number TRACE documented in this encounter Visit Diagnoses Not on filedocumented in this encounter
--- OUTSIDE RECORDS SUMMARY | 2022-04-17 14:29 | XMS_ITS | Encounter Summary ---
:1940 Author Organization [facility] Address [address] [place] [address] Care Team Providers Name Role Phone Unavailable Primary Care Provider Unavailable Encounter Details Date Type Department Care Team Description 12/04/2021 Orders Only [facility] O f Darren Escalante MD [phone] [place] [address] [place], [place] [phone] (Wo rk) Social History Tobacco Use Types Packs/Day Years Used Date Smoking Tobacco: Never Assessed Sex Assigned at Date Recorded Not on file documented as of this encounter Plan of Treatment Not on filedocumented as of this encounter Procedures Procedure Name Priority Date/Time Associated Diagnosis Comme nts HEMATOLOGY Routine 12/04/2021 Results for thi s procedure are in the resu lts section. documented in this encounter Results (ABNORMAL) HEMATOLOGY (12/04/2021) Analysis Performed At Patho logist Time Signature Hemoglobin 9.8 (L) 14.0 - APS SPECTRA 18.0 g/dL [facility] Hemoglobin x 3 29.4 (L) 42.0 - APS SPECTRA 54.0 % [facility] Specimen (Source) Anatomical Collection Method Collection Time Re ceived Time Location / / Volume Laterality 12/04/2021 12/05/2021 9:43 AM CDT Narrative APS SPECTRA [facility] - 12/05/2021 Unless otherwise specified, test(s) performed at: [facility], [address] [place] [id number] PHYSICAL DAMAGE APPRAISER: Jacob Junior M.D. For any questions, please call customer service at FREQUENCY:OTHER Resulting Agency Comment Specimen source: Blood Darren Youssef MD LAB BLOOD ORDERABLES Performing Organization Address City/State/ZIP Code Phon e Number APS SPECTRA [facility] documented in this encounter Visit Diagnoses Not on filedocumented in this encounter
--- OUTSIDE RECORDS SUMMARY | 2022-04-17 14:29 | XMS_ITS | Encounter Summary ---
:1940 Author Organization [facility] Address [address] [place] [address] Care Team Providers Name Role Phone Unavailable Primary Care Provider Unavailable Encounter Details Date Type Department Care Team Description 11/20/2021 Orders Only [facility] O f Darren Escalante MD [phone] [place] [address] [place], [place] [phone] (Wo rk) Social History Tobacco Use Types Packs/Day Years Used Date Smoking Tobacco: Never Assessed Sex Assigned at Date Recorded Not on file documented as of this encounter Plan of Treatment Not on filedocumented as of this encounter Procedures Procedure Name Priority Date/Time Associated Diagnosis Comme nts HEMATOLOGY Routine 11/20/2021 Results for thi s procedure are in the resu lts section. CHEMISTRY Routine 11/20/2021 Results for thi s procedure are in the resu lts section. documented in this encounter Results (ABNORMAL) Spectrae Chemistry (11/20/2021) P athologist Signature Ferritin 715 (H) 22 - 322 APS SPECTRA ng/mL [facility] Specimen (Source) Anatomical Collection Method Collection Time Re ceived Time Location / / Volume Laterality 11/20/2021 11/21/2021 4:45 PM CDT Narrative APS SPECTRA [facility] - 11/21/2021 Unless otherwise specified, test(s) performed at: [facility], [address] [place] [id number] DIETARY AIDE TEACHER: Jacob Junior M.D. For any questions, please call customer service at FREQUENCY:OTHER Resulting Agency Comment Specimen source: Serum Darren Youssef MD LAB BLOOD ORDERABLES Performing Organization Address City/State/ZIP Code Phon e Number APS SPECTRA [facility] (ABNORMAL) HEMATOLOGY (11/20/2021) Analysis Performed At Patho logist Time Signature Hemoglobin 10.0 (L) 14.0 - APS SPECTRA 18.0 g/dL [facility] Hemoglobin x 3 30.0 (L) 42.0 - APS SPECTRA 54.0 % [facility] Specimen (Source) Anatomical Collection Method Collection Time Re ceived Time Location / / Volume Laterality 11/20/2021 11/21/2021 2:17 PM CDT Narrative APS SPECTRA [facility] - 11/21/2021 Unless otherwise specified, test(s) performed at: [facility], [address] [place] [address] DIETARY AIDE TEACHER: Jaocb Junior M.D. For any questions, please call customer service at FREQUENCY:OTHER Resulting Agency Comment Specimen source: Blood Darren Youssef MD LAB BLOOD ORDERABLES Performing Organization Address City/[facility] Phon e Number APS SPECTRA [facility] documented in this encounter Visit Diagnoses Not on filedocumented in this encounter
--- OUTSIDE RECORDS SUMMARY | 2022-04-17 14:29 | XMS_ITS | Encounter Summary ---
:1940 Author Organization [facility] Address [address] [place] [address] Care Team Providers Name Role Phone Unavailable Primary Care Provider Unavailable Encounter Details Date Type Department Care Team Description 12/25/2021 Orders Only [facility] O f Darren Escalante MD [phone] [place] [address] [place], [place] [phone] (Wo rk) Social History Tobacco Use Types Packs/Day Years Used Date Smoking Tobacco: Never Assessed Sex Assigned at Date Recorded Not on file documented as of this encounter Plan of Treatment Not on filedocumented as of this encounter Procedures Procedure Name Priority Date/Time Associated Diagnosis Comme nts HEMATOLOGY Routine 12/25/2021 Results for thi s procedure are in the resu lts section. documented in this encounter Results (ABNORMAL) HEMATOLOGY (12/25/2021) Analysis Performed At Patho logist Time Signature Hemoglobin 10.0 (L) 14.0 - APS SPECTRA 18.0 g/dL [facility] Hemoglobin x 3 30.0 (L) 42.0 - APS SPECTRA 54.0 % [facility] Specimen (Source) Anatomical Collection Method Collection Time Re ceived Time Location / / Volume Laterality 12/25/2021 12/26/2021 1:24 PM CDT Narrative APS SPECTRA [facility] - 12/26/2021 Unless otherwise specified, test(s) performed at: [email or web address], [address] [place] [address], [place] [address] DATA ACQUISITION TECHNICIAN: Rojas Kirkland M.D., Ph.D For any questions, please call customer service at FREQUENCY:OTHER Resulting Agency Comment Specimen source: Blood Darren Youssef MD LAB BLOOD ORDERABLES Performing Organization Address City/State/ZIP Code Phon e Number APS SPECTRA [facility] documented in this encounter Visit Diagnoses Not on filedocumented in this encounter
--- OUTSIDE RECORDS SUMMARY | 2022-04-17 14:29 | XMS_ITS | Encounter Summary ---
:1940 Author Organization [facility] Address [address] [place] [address] Care Team Providers Name Role Phone Unavailable Primary Care Provider Unavailable Encounter Details Date Type Department Care Team Description 11/13/2021 Treatment [facility] Darren Singh MD [address] [place], [place] [phone] (Wo rk) Social History Tobacco Use Types Packs/Day Years Used Date Smoking Tobacco: Never Assessed Sex Assigned at Date Recorded Not on file documented as of this encounter Miscellaneous Notes Dialysis Note - Darren Youssef MD - 11/13/2021 12:11 PM CDT Date: Nov 13, 2021 Patient Name: Korey Mackay : 1940 Chart #: [id number] Sex: M This patient was personally seen for a complete visit as part of routine monthly dialysis care. A review of the dialysis treatment, blood pressure, estimated dry weight and recent lab values was made. These were discussed with the patient and staff as necessary. Treatment Data for 11/13/2021 started at:11:00 AM Dialyzer: 180NRe Optiflux Na: 137 mEq/L Bicarb: 37 mEq/L Dialysate: 3.0 K, 2.5 Ca, 1.0 Mg, 100 Dextrose (G3251) Dialysate/Machine Temp (prescribed): 37 C Dialysate/Machine Temp (actual): 37.1 C BFR (prescribed): 500 BFR (actual): 500 Prescribed time: 03:30 EDW: 99 kg Access Type: Active (In Use):AVFistula-Standard/Left Forearm Pre Dialysis Vitals (for 11/13/2021 10:54 AM ) Pre BP (sit): 106/52 Pre Wt: 101.4 kg Temp: 98 F Post Dialysis Vitals (for 11/11/2021 2:31 PM ) Post BP (sit): 135/70 Post Wt: 98.7 kg Current Dialysis Vitals (for 11/13/2021 11:30 AM ) BP (sit): 147/74 AP(-) / APPLICATIONS SYSTEMS ANALYST: n/a/240 Pulse: 70 Chairside data as of 11/13/2021 11:30 AM Last 3 Treatments 11/11/2021 11/08/2021 11/06/2021 EDW (kg) 99 99 99 Weight Pre (kg) 101.4 101.4 101.9 Weight Post (kg) 98.7 98.7 99.5 Dialytic Weight Loss (kg) -2.7 -2.7 -2.4 EDW Deviation (kg) -0.3 -0.3 0.5 BP Sit Pre 124/67 95/40 93/50 BP Sit Post 135/70 132/65 105/56 UF Rate (mL/kg/hr) 8 8 7 Prescribed BFR 500 500 500 Average Delivered BFR 510 460 460 Prescribed Treatment Time 03:30 03:30 03:30 Actual Treatment Time 03:31 03:31 03:30 Last 3 Values 09/07/2021 08/13/2021 07/11/2021 Access Flow 1572 1142 1044 Treatment Medication Orders Medication Sig Start Date End Date Heparin Sodium (Porcine) 1,000 Units/mL Systemic 2000 units IVP Every Treatment 10/07/2021 10/06/2022 Mircera 50 mcg IVP Every 2 weeks 10/30/2021 10/29/2022 Vitamin D (Calcitriol) Oral 0.25 mcg ORAL Every Treatment 10/16/2021 10/15/2022 SOLVENT RECOVERER: Darren Youssef MD LOCATION: [phone] SCHEDULE: -W- 2nd Shift EDW: kg. DIALYZER: HD DURATION: NEEDLE SIZE: ANTICOAG: BATH: QB: ml/min QD: ml/min Subjective No new complaints. Tolerating dialysis well. 11/13/21: Got dentures on top but they are loose and he has to go back, making it hard to eat outside soft foods that he doesn't need to chew. Access working well. HE feels overall well. Labs overall excellent. He denies CP, SOB, edema, cramps. 10/30/21: Korey is back from [place] for the summer. He says things went well there. He has no concerns today, feels things are going well, not using clamps on access anymore and less bruising and access working well. He denies CP, SOB, edema. 05/22/21: He is upset about lack of good times at HD unit in [place]. No new symptoms. Feels well today otherwise. Should get at or very close to dry weight today. Labs reviewed with him, overall excellent. 04/24/21: Many complaints today, brings up his bad experience at [facility] again, concerned about new person [...] had becerril taken out, says Urologist in [place] told him to have nurses at dialysis [...] until follow-up next month with Urology in [place]. Still with hematuria but low UOP he reports (70 mL this am from overnight). Hgb slow to improve in setting of infection. 11/07/20: Notes below from Dr. Sky. I am meeting patient today for first time. He transferred from [facility] - he was unhappy with staff there [...] No sob eating well. Will go to [place] soon for the winter. 04/30/20. Pt feels well, denies sob, eating wlll, no new complaints. He decided against urology onsult for his gross hematuria. going to [place] on Thursday. Will show up there Thursday. 09/24/20 No new complaints at this time, Just back from [place]. 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 He now has two homes, one in [place] and one in [place]. He and his winter in [place]. They have one daughter that lives in [place], [place] and they have one son (who's had drug problems). Exam Respiratory - Clear to auscultation bilaterally. nl effort Cardiovascular - Regular rate. Regular rhythm. No murmur heard. Edema - No leg edema. 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 Treatment and Adequacy Assessment BUN mg/dL 66 (11/06/21) 61 (10/16/21) 81 [...] (10/16/21) 1.2500 (10/07/21) 1.4300 (09/10/21) 1.5500 (08/20/21) Dialysis is adequate. Achieves prescribed time - Yes Achieves prescribed frequency - Yes Continue current prescription. Vascular Access Assessment Type of access: Fistula Surgeon - Urena Staff and patient report access is working well. Anemia Assessment HEMOGLOBIN (G/DL) IN BLOOD g/dL 10.2 (11/06/21) 9.9 (10/30/21) 10.7 (10/23/21) 10.6 (10/16/21) 11.1 (10/09/21) PLATELETS 1000/mcL 140 (11/06/21) 129 (10/07/21) 149 (05/08/21) 147 (04/10/21) 179 (03/13/21) IRON SATURATION % 45 (11/06/21) 53 (10/07/21) 25 (05/08/21) 34 (04/10/21) 45 (03/13/21) FERRITIN ng/mL 753 (10/07/21) 761 (03/13/21) 881 (03/06/21) 608 (12/12/20) Hemoglobin is at goal. Iron Saturation is at goal. Ferritin is at goal. Will adjust MISTY and intravenous iron per protocol. Nutritional and Metabolic Assessment ALBUMIN (G/DL) g/dL 3.9 (11/06/21) 3.8 (10/07/21) 3.8 (05/08/21) 3.5 (04/10/21) 3.3 (03/13/21) Sodium mEq/L 141 (11/06/21) 139 (10/07/21) 140 (05/08/21) 144 (04/10/21) 141 (03/13/21) POTASSIUM (MMOL/L) IN SER/PLAS mEq/L 3.9 (11/06/21) 3.9 (10/07/21) 4.4 (05/08/21) 4.8 (04/10/21) 4.4 (03/13/21) BICARBONATE (CO2) mEq/L 26 (11/06/21) 18 (10/07/21) 24 (05/08/21) 25 (04/10/21) 26 (03/13/21) 25 OH VITAMIN D ng/mL 71.8 (12/12/20) Albumin is below goal. Encourage high-biological value protein intake. Oral Nutritional Supplement program. Potassium is at goal. Bicarbonate is at goal. Continue same Bone and Mineral Metabolism Assessment Calcium mg/dL 9.2 (11/06/21) 8.4 (10/07/21) 9.0 (05/08/21) 9.5 (04/10/21) 8.9 (03/13/21) CALCIUM (MG/DL) CORRECTED FOR ALBUMIN IN SER/PLAS mg/dL 9.3 (11/06/21) 8.6 (10/07/21) 9.2 (05/08/21) 9.9 (04/10/21) 9.5 (03/13/21) PHOSPHATE (MG/DL) IN SER/PLAS mg/dL 3.6 (11/06/21) 3.8 (10/07/21) 4.1 (05/08/21) 2.1 (04/10/21) 4.4 (03/13/21) CALCIUM PHOSPHORUS PRODUCT, COR 33 (11/06/21) 33 (10/07/21) 38 (05/08/21) 21 (04/10/21) 42 (03/13/21) IPTH pg/mL 384 (10/07/21) 176 (03/13/21) 251 (01/09/21) 306 (12/12/20) Corrected Calcium is at goal. Phosphorous is at goal. Intact PTH is at goal. Transitional Kindergarten Teacher will adjust binders and vitamin D per protocol and continue to provide dietary education. Cardiovascular Assessment Blood pressures reviewed and are acceptable. Intradialytic weight gains are appropriate. Estimated dry weight is appropriate. Continue same cardiovascular medications. Weight gains too high at times, discussed fluid restriction with him and we have educated his Transplant Status: Patient is not a candidate. Age >80 and co-morbidities Resuscitation Status Stable dialysis, no changes today Consistent IDWG <3L is goal, discussed with him Darren Youssef MD [ Signed And locked electronically On 11/13/2021 at 12:12:23 PM ] Transcribed: Darren Youssef ( 11/13/2021 ) documented in this encounter Plan of Treatment Not on filedocumented as of this encounter Visit Diagnoses Not on filedocumented in this encounter
--- OUTSIDE RECORDS SUMMARY | 2022-04-17 14:29 | XMS_ITS | Encounter Summary ---
:1940 Author Organization [facility] Address [address] [place] [address] Care Team Providers Name Role Phone Unavailable Primary Care Provider Unavailable Encounter Details Date Type Department Care Team Description 08/06/2021 Orders Only [facility] O f ETTA Provider, Trace Ordering [address] [place], [place] [phone] Social History Tobacco Use Types Packs/Day Years Used Date Smoking Tobacco: Never Assessed Sex Assigned at Date Recorded Not on file documented as of this encounter Plan of Treatment Not on filedocumented as of this encounter Procedures Procedure Name Priority Date/Time Associated Diagnosis Comme nts SPECTRA TRACE LAB RESULTS Routine 08/06/2021 Resul ts for this procedure are i n the results section . documented in this encounter Results Spectra TRACE Lab Results (08/06/2021) P athologist Signature eKt/V 1.20 TRACE ([place]) nPCR_HD 0.84 TRACE spKt/V Gotch 1.43 TRACE eKt/V Gotch 1.22 TRACE spKt/V 1.40 TRACE (Daugirdas II) PCR 57.07 TRACE eKdrt/V 1.22 TRACE eNPCR 0.80 TRACE Specimen (Source) Anatomical Location Collection Method / Collectio n Time Received Time / Laterality Volume 08/06/2021 08/06/2021 Trace Ordering Provider LAB BLOOD ORDERABLES Performing Organization Address City/State/ZIP Code Phon e Number TRACE documented in this encounter Visit Diagnoses Not on filedocumented in this encounter
--- OUTSIDE RECORDS SUMMARY | 2022-04-17 14:29 | XMS_ITS | Encounter Summary ---
:1940 Author Organization [facility] Address [address] [place] [address] Care Team Providers Name Role Phone Unavailable Primary Care Provider Unavailable Encounter Details Date Type Department Care Team Description 05/22/2021 Treatment [facility] Darren Singh MD [address] [place] [address] [place], [place] [phone] [phone] (Wo rk) Social History Tobacco Use Types Packs/Day Years Used Date Smoking Tobacco: Never Assessed Sex Assigned at Date Recorded Not on file documented as of this encounter Miscellaneous Notes Dialysis Note - Darren Youssef MD - 05/22/2021 12:34 PM CST Date: May 22, 2021 Patient Name: Korey Mackay : 1940 Chart #: [id number] Sex: M This patient was personally seen for a complete visit as part of routine monthly dialysis care. A review of the dialysis treatment, blood pressure, estimated dry weight and recent lab values was made. These were discussed with the patient and staff as necessary. Treatment Data for 05/22/2021 started at:9:26 AM Dialyzer: 180NRe Optiflux Na: 137 mEq/L Bicarb: 33 mEq/L Dialysate: 3.0 K, 2.25 Ca, 1.0 Mg, 100 Dextrose (G3231) Dialysate/Machine Temp (prescribed): 37 C Dialysate/Machine Temp (actual): 36.9 C BFR (prescribed): 500 BFR (actual): 500 Prescribed time: 03:30 EDW: 98.5 kg Access Type: Active (In Use):AVFistula-Standard/Left Forearm Pre Dialysis Vitals (for 05/22/2021 9:18 AM ) Pre BP (sit): 133/79 Pre Wt: 103.4 kg Temp: 98 F Post Dialysis Vitals (for 05/20/2021 12:55 PM ) Post BP (sit): 121/56 Post Wt: 99.8 kg Current Dialysis Vitals (for 05/22/2021 12:31 PM ) BP (sit): 105/47 AP(-) / GOLF CART ASSEMBLER: 255/256 Pulse: 69 Chairside data as of 05/22/2021 12:31 PM Last 3 Treatments 05/20/2021 05/17/2021 05/15/2021 EDW (kg) 98.5 98.5 98.5 Weight Pre (kg) 103 102.2 103.6 Weight Post (kg) 99.8 99.6 100 Dialytic Weight Loss (kg) -3.2 -2.6 -3.6 EDW Deviation (kg) 1.3 1.1 1.5 BP Sit Pre 152/73 154/79 145/74 BP Sit Post 121/56 101/53 118/60 UF Rate (mL/kg/hr) 9 7 10 Prescribed BFR 500 500 500 Average Delivered BFR 480 510 510 Prescribed Treatment Time 03:30 03:30 03:30 Actual Treatment Time 03:27 03:32 03:31 Last 3 Values 04/26/2021 03/22/2021 01/25/2021 Access Flow [id number] 1457 Treatment Medication Orders Medication Sig Start Date End Date Heparin Sodium (Porcine) 1,000 Units/mL Systemic 2000 units IVP Every Treatment 11/16/2020 11/15/2021 Iron Sucrose (Venofer) 100 mg IVP Every Treatment 05/13/2021 06/03/2021 Vitamin D (Calcitriol) Oral 0.25 mcg ORAL Every Treatment 12/19/2020 12/18/2021 MACHINE SETTER SUPERVISOR: Darren Youssef MD LOCATION: [place] [phone] SCHEDULE: -W- 2nd Shift EDW: kg. DIALYZER: HD DURATION: NEEDLE SIZE: ANTICOAG: BATH: QB: ml/min QD: ml/min Subjective Tolerating dialysis well. 05/22/21: He is upset about lack of good times at HD unit in [place]. No new symptoms. Feels well today otherwise. Should get at or very close to dry weight today. Labs reviewed with him, overall excellent. 04/24/21: Many complaints today, brings up his bad experience at [facility] again, concerned about new person doing [...] had becerril taken out, says Urologist in [place] told him to have nurses at dialysis [...] until follow-up next month with Urology in [place]. Still with hematuria but low UOP he reports (70 mL this am from overnight). Hgb slow to improve in setting of infection. 11/07/20: Notes below from Dr. Sky. I am meeting patient today for first time. 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 He now has two homes, one in [place] and one in [place]. He and his winter in [place]. They have one daughter that lives in [place], [place] and they have one son (who's had drug problems). Exam Respiratory - Clear to auscultation bilaterally. nl effort Cardiovascular - Regular rate. Regular rhythm. No murmur heard. Edema - Trace edema. 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 take with largest meal Dialyvite (b complex 29-tzvsc-r-biot-zinc) [phone] gz-qp-pdo-mg tablet Take 1 tablet by mouth once [...] 1 tablet by mouth once a day Allergy List Allergen Reaction Reaction Severity Onset Date Lipitor Unknown lisinopril Nausea/Vomiting metoclopramide Unknown omeprazole Nausea/Vomiting Medications reviewed and no changes were made. Treatment and Adequacy Assessment BUN mg/dL 50 (05/08/21) 56 (04/10/21) 43 (03/13/21) 64 (03/04/21) 46 (03/01/21) UREA NITROGEN (MG/DL) IN SER/PLAS - POST DIALYSIS mg/dL 15 (05/08/21) 18 (04/10/21) 12 (03/13/21) 18 (03/04/21) 15 (03/01/21) URR % 70 (05/08/21) 68 (04/10/21) 72 (03/13/21) 72 (03/04/21) 67 (03/01/21) spKt/V Gotch 1.47 (05/08/21) 1.38 (04/10/21) 1.45 (03/13/21) 1.48 (03/04/21) 1.43 (01/09/21) eKdrt/V 1.25 (05/08/21) 1.18 (04/10/21) 1.23 (03/13/21) 1.26 (03/04/21) 1.22 (01/09/21) spKt/V (Daugirdas II) 1.4200 (05/08/21) 1.3500 (04/10/21) 1.4400 (03/13/21) 1.4800 (03/04/21) 1.2800 (03/01/21) BUN mg/dL 72 (10/08/20) 92 (09/17/20) CREATININE (MG/DL) IN SER/PLAS mg/dL 9.92 (10/22/20) 10.76 (09/24/20) 10.43 (09/17/20) URR% % 72 (10/08/20) 72 (09/17/20) Dialysis is adequate. Achieves prescribed time - Yes Achieves prescribed frequency - Yes Continue current prescription. Vascular Access Assessment Type of access: Fistula Surgeon - [place] Staff and patient report access is working well. Anemia Assessment HEMOGLOBIN (G/DL) IN BLOOD g/dL 12.0 (05/15/21) 12.0 (05/08/21) 11.4 (05/01/21) 10.9 (04/24/21) 10.2 (04/17/21) PLATELETS 1000/mcL 149 (05/08/21) 147 (04/10/21) 179 (03/13/21) 72 (03/01/21) 142 (01/09/21) IRON SATURATION % 25 (05/08/21) 34 (04/10/21) 45 (03/13/21) 62 (03/06/21) 55 (03/01/21) FERRITIN ng/mL 761 (03/13/21) 881 (03/06/21) 608 (12/12/20) 684 (10/29/20) WBC (BLOOD) x 103 cells/uL 6.3 (10/22/20) 7.3 (09/24/20) 6.3 (09/17/20) HGB g/dL 9.9 (10/22/20) 10.2 (10/15/20) 10.7 (10/08/20) 11.1 (10/01/20) 10.9 (09/24/20) PLATELETS x 103 cells/uL 119 (10/22/20) 116 (09/24/20) 120 (09/17/20) IRON SATURATION % 50 (10/22/20) 20 (09/24/20) 35 (09/17/20) FERRITIN ng/mL 650 (10/22/20) 386 (09/24/20) 355 (09/17/20) Hemoglobin is above goal. Iron Saturation is at goal. Ferritin is at goal. Will adjust MISTY and intravenous iron per protocol. Hold MISTY with Hgb >11 Nutritional and Metabolic Assessment ALBUMIN (G/DL) g/dL 3.8 (05/08/21) 3.5 (04/10/21) 3.3 (03/13/21) 3.0 (03/01/21) 3.8 (01/09/21) Sodium mEq/L 140 (05/08/21) 144 (04/10/21) 141 (03/13/21) 136 (03/01/21) 140 (01/09/21) POTASSIUM (MMOL/L) IN SER/PLAS mEq/L 4.4 (05/08/21) 4.8 (04/10/21) 4.4 (03/13/21) 4.4 (03/01/21) 4.1 (01/09/21) BICARBONATE (CO2) mEq/L 24 (05/08/21) 25 (04/10/21) 26 (03/13/21) 25 (03/01/21) 25 (01/09/21) 25 OH VITAMIN D ng/mL 71.8 (12/12/20) 62.5 (10/29/20) ALBUMIN (G/DL) g/dL 4.1 (10/22/20) 4.2 (09/24/20) 4.2 (09/17/20) SODIUM mEq/L 141 (10/22/20) 140 (09/24/20) 141 (09/17/20) POTASSIUM (MMOL/L) IN SER/PLAS mEq/L 4.7 (10/22/20) 4.1 (09/24/20) 3.9 (09/17/20) BICARBONATE (CO2) mEq/L 24 (10/22/20) 21 (09/24/20) 22 (09/17/20) Albumin is below goal. Encourage high-biological value protein intake. Oral Nutritional Supplement program. Potassium is at goal. Bicarbonate is at goal. Continue same Bone and Mineral Metabolism Assessment Calcium mg/dL 9.0 (05/08/21) 9.5 (04/10/21) 8.9 (03/13/21) 8.3 (03/01/21) 9.1 (01/09/21) CALCIUM (MG/DL) CORRECTED FOR ALBUMIN IN SER/PLAS mg/dL 9.2 (05/08/21) 9.9 (04/10/21) 9.5 (03/13/21) 9.1 (03/01/21) 9.3 (01/09/21) PHOSPHATE (MG/DL) IN SER/PLAS mg/dL 4.1 (05/08/21) 2.1 (04/10/21) 4.4 (03/13/21) 4.1 (03/01/21) 3.9 (01/09/21) CALCIUM PHOSPHORUS PRODUCT, COR 38 (05/08/21) 21 (04/10/21) 42 (03/13/21) 37 (03/01/21) 36 (01/09/21) IPTH pg/mL 176 (03/13/21) 251 (01/09/21) 306 (12/12/20) 67 (10/29/20) CALCIUM mg/dL 10.4 (10/22/20) 9.5 (10/08/20) 9.1 (10/01/20) 8.6 (09/17/20) CORRECTED CALCIUM mg/dL 10.4 (10/22/20) 9.5 (10/08/20) 9.1 (10/01/20) 8.6 (09/17/20) PHOSPHORUS mg/dL 3.1 (10/08/20) 4.4 (09/17/20) CA*PO4 CORRCTD Calc 29.5 (10/08/20) 37.8 (09/17/20) IPTH pg/mL 145 (10/08/20) 432 (09/17/20) Corrected Calcium is at goal. Phosphorous is at goal. Intact PTH is at goal. Short Goods Drier will adjust binders and vitamin D per [...] Resuscitation Status Stable dialysis, no changes today He is going to [facility] of this week, will be back in October Darren Youssef MD [ Signed And locked electronically On 05/22/2021 at 12:36:05 PM ] Transcribed: Darren Youssef ( 05/22/2021 ) documented in this encounter Plan of Treatment Not on filedocumented as of this encounter Visit Diagnoses Not on filedocumented in this encounter
--- OUTSIDE RECORDS SUMMARY | 2022-04-17 14:29 | XMS_ITS | Encounter Summary ---
:1940 Author Organization [facility] Address [address] [place] [address] Care Team Providers Name Role Phone Unavailable Primary Care Provider Unavailable Encounter Details Date Type Department Care Team Description 10/23/2021 Orders Only [facility] O f Darren Escalante MD [address] [place] [address] [place], [place] [phone] (Wo rk) Social History Tobacco Use Types Packs/Day Years Used Date Smoking Tobacco: Never Assessed Sex Assigned at Date Recorded Not on file documented as of this encounter Plan of Treatment Not on filedocumented as of this encounter Procedures Procedure Name Priority Date/Time Associated Diagnosis Comme nts HEMATOLOGY Routine 10/23/2021 Results for thi s procedure are in the resu lts section. documented in this encounter Results (ABNORMAL) HEMATOLOGY (10/23/2021) Analysis Performed At Patho logist Time Signature Hemoglobin 10.7 (L) 14.0 - [facility] 18.0 g/dL [facility] Hemoglobin x 3 32.1 (L) 42.0 - [facility] 54.0 % [facility] Specimen (Source) Anatomical Collection Method Collection Time Re ceived Time Location / / Volume Laterality 10/23/2021 10/24/2021 3:44 PM CDT Narrative [facility] - 10/24/2021 Unless otherwise specified, test(s) performed at: [facility], [address] [place] [id number] LIFE SCIENCES TEACHER: Jacob Junior M.D. For any questions, please call customer service at FREQUENCY:OTHER Resulting Agency Comment Specimen source: Blood Darren Youssef MD LAB BLOOD ORDERABLES Performing Organization Address City/State/ZIP Code Phon e Number [facility] documented in this encounter Visit Diagnoses Not on filedocumented in this encounter
--- OUTSIDE RECORDS SUMMARY | 2022-04-17 14:29 | XMS_ITS | Encounter Summary ---
:1940 Author Organization [facility] Address [address] [place] [address] Care Team Providers Name Role Phone Unavailable Primary Care Provider Unavailable Encounter Details Date Type Department Care Team Description 10/30/2021 Treatment [facility] Darren Singh MD [address] [place] [address] [place], [place] [phone] (Wo rk) Social History Tobacco Use Types Packs/Day Years Used Date Smoking Tobacco: Never Assessed Sex Assigned at Date Recorded Not on file documented as of this encounter Miscellaneous Notes Dialysis Note - Darren Youssef MD - 10/30/2021 12:51 PM CDT Date: October 30, 2021 Patient Name: Korey Mackay : 1940 Chart #: [id number] Sex: M This patient was personally seen for a complete visit as part of routine monthly dialysis care. A review of the dialysis treatment, blood pressure, estimated dry weight and recent lab values was made. These were discussed with the patient and staff as necessary. Treatment Data for 10/30/2021 started at:11:02 AM Dialyzer: 180NRe Optiflux Na: 137 mEq/L Bicarb: 37 mEq/L Dialysate: 3.0 K, 2.25 Ca, 1.0 Mg, 100 Dextrose (G3231) Dialysate/Machine Temp (prescribed): 37 C Dialysate/Machine Temp (actual): 37 C BFR (prescribed): 500 BFR (actual): 500 Prescribed time: 03:30 EDW: 99 kg Access Type: Active (In Use):AVFistula-Standard/Left Forearm Pre Dialysis Vitals (for 10/30/2021 10:55 AM ) Pre BP (sit): 102/52 Pre Wt: 103.2 kg Temp: 97.7 F Post Dialysis Vitals (for 10/28/2021 2:22 PM ) Post BP (sit): 105/56 Post Wt: 99.2 kg Current Dialysis Vitals (for 10/30/2021 12:04 PM ) BP (sit): 115/63 AP(-) / PRINTING SUPERVISOR: 196/232 Pulse: 70 Chairside data as of 10/30/2021 12:04 PM Last 3 Treatments 10/28/2021 10/25/2021 10/23/2021 EDW (kg) 99 99 99 Weight Pre (kg) 102.5 103.3 104.8 Weight Post (kg) 99.2 100.4 101.6 Dialytic Weight Loss (kg) -3.3 -2.9 -3.2 EDW Deviation (kg) 0.2 1.4 2.6 BP Sit Pre 158/98 137/61 142/63 BP Sit Post 105/56 110/58 102/79 UF Rate (mL/kg/hr) 9 8 9 Prescribed BFR 500 500 500 Average Delivered BFR 460 510 460 Prescribed Treatment Time 03:30 03:30 03:30 Actual Treatment Time 03:32 03:30 03:31 Last 3 Values 09/07/2021 08/13/2021 07/11/2021 Access Flow 1572 1142 1044 Treatment Medication Orders Medication Sig Start Date End Date Heparin Sodium (Porcine) 1,000 Units/mL Systemic 2000 units IVP Every Treatment 10/07/2021 10/06/2022 Mircera 50 mcg IVP Every 2 weeks 10/30/2021 10/29/2022 Vitamin D (Calcitriol) Oral 0.25 mcg ORAL Every Treatment 10/16/2021 10/15/2022 IMPROVEMENT MANAGER: Darren Youssef MD LOCATION: [phone] SCHEDULE: M-W- 2nd Shift EDW: kg. DIALYZER: HD DURATION: NEEDLE SIZE: ANTICOAG: BATH: QB: ml/min QD: ml/min Subjective No new complaints. Tolerating dialysis well. 10/30/21: Korey is back from [place] for [...] today, brings up his bad experience at again, concerned about new person doing his [...] had becerril taken out, says Urologist in [place] told him to have nurses at dialysis [...] until follow-up next month with Urology in [place]. Still with hematuria but low UOP he reports (70 mL this am from overnight). Hgb slow to improve in setting of infection. 11/07/20: Notes below from Dr. Sky. I am meeting patient today for first time. 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 He now has two homes, one in [place] and one in [place]. He and his winter in [place]. They have one daughter that lives in [place], [place] and they have one son (who's [...] take with largest meal Dialyvite (b complex 13-lmmie-y-biot-zinc) [phone] iy-ys-jck-mg tablet Take 1 tablet by mouth once [...] made. Treatment and Adequacy Assessment BUN mg/dL 61 (10/16/21) 81 (10/07/21) 50 (05/08/21) 56 (04/10/21) 43 (03/13/21) UREA NITROGEN (MG/DL) IN SER/PLAS - POST DIALYSIS mg/dL 18 (10/16/21) 28 (10/07/21) 15 (05/08/21) 18 (04/10/21) 12 (03/13/21) URR % 70 (10/16/21) 65 (10/07/21) 70 (05/08/21) 68 (04/10/21) 72 (03/13/21) spKt/V Gotch 1.47 (10/16/21) 1.47 (09/10/21) 1.62 (08/20/21) 1.43 (08/06/21) 1.47 (07/30/21) eKdrt/V 1.25 (10/16/21) 1.25 (09/10/21) 1.38 (08/20/21) 1.22 (08/06/21) 1.26 (07/30/21) spKt/V (Daugirdas II) 1.4200 (10/16/21) 1.2500 (10/07/21) 1.4300 (09/10/21) 1.5500 (08/20/21) 1.4000 (08/06/21) Dialysis is adequate. Achieves prescribed time - Yes Achieves prescribed frequency - Yes Continue current prescription. Vascular Access Assessment Type of access: Fistula Surgeon - [place] Staff and patient report access is working well. Anemia Assessment HEMOGLOBIN (G/DL) IN BLOOD g/dL 10.7 (10/23/21) 10.6 (10/16/21) 11.1 (10/09/21) 11.5 (10/07/21) 11.9 (05/22/21) PLATELETS 1000/mcL 129 (10/07/21) 149 (05/08/21) 147 (04/10/21) 179 (03/13/21) 72 (03/01/21) IRON SATURATION % 53 (10/07/21) 25 (05/08/21) 34 (04/10/21) 45 (03/13/21) 62 (03/06/21) FERRITIN ng/mL 753 (10/07/21) 761 (03/13/21) 881 (03/06/21) 608 (12/12/20) Hemoglobin is at goal. Iron Saturation is at goal. Ferritin is at goal. Will adjust MISTY and intravenous iron per protocol. Nutritional and Metabolic Assessment ALBUMIN (G/DL) g/dL 3.8 (10/07/21) 3.8 (05/08/21) 3.5 (04/10/21) 3.3 (03/13/21) 3.0 (03/01/21) Sodium mEq/L 139 (10/07/21) 140 (05/08/21) 144 (04/10/21) 141 (03/13/21) 136 (03/01/21) POTASSIUM (MMOL/L) IN SER/PLAS mEq/L 3.9 (10/07/21) 4.4 (05/08/21) 4.8 (04/10/21) 4.4 (03/13/21) 4.4 (03/01/21) BICARBONATE (CO2) mEq/L 18 (10/07/21) 24 (05/08/21) 25 (04/10/21) 26 (03/13/21) 25 (03/01/21) 25 OH VITAMIN D ng/mL 71.8 (12/12/20) Albumin is below goal. Encourage high-biological value protein intake. Oral Nutritional Supplement program. Potassium is at goal. Bicarbonate is at goal. Continue same Bone and Mineral Metabolism Assessment Calcium mg/dL 8.4 (10/07/21) 9.0 (05/08/21) 9.5 (04/10/21) 8.9 (03/13/21) 8.3 (03/01/21) CALCIUM (MG/DL) CORRECTED FOR ALBUMIN IN SER/PLAS mg/dL 8.6 (10/07/21) 9.2 (05/08/21) 9.9 (04/10/21) 9.5 (03/13/21) 9.1 (03/01/21) PHOSPHATE (MG/DL) IN SER/PLAS mg/dL 3.8 (10/07/21) 4.1 (05/08/21) 2.1 (04/10/21) 4.4 (03/13/21) 4.1 (03/01/21) CALCIUM PHOSPHORUS PRODUCT, COR 33 (10/07/21) 38 (05/08/21) 21 (04/10/21) 42 (03/13/21) 37 (03/01/21) IPTH pg/mL 384 (10/07/21) 176 (03/13/21) 251 (01/09/21) 306 (12/12/20) Corrected Calcium is at goal. Phosphorous is at goal. Intact PTH is at goal. Goal Umpire will adjust binders and vitamin D per [...] Resuscitation Status Stable dialysis, no changes today Just working on consistent IDWG <3L Darren Youssef MD [ Signed And locked electronically On 10/30/2021 at 12:55:23 PM ] Transcribed: Darren Youssef ( 10/30/2021 ) documented in this encounter Plan of Treatment Not on filedocumented as of this encounter Visit Diagnoses Not on filedocumented in this encounter
--- OUTSIDE RECORDS SUMMARY | 2022-04-17 14:29 | XMS_ITS | Encounter Summary ---
:1940 Author Organization [facility] Address [address] [place] [address] Care Team Providers Name Role Phone Unavailable Primary Care Provider Unavailable Encounter Details Date Type Department Care Team Description 12/18/2021 Orders Only [facility] O f Darren Escalante MD [address] [place] [address] [place], [place] [phone] (Wo rk) Social History Tobacco Use Types Packs/Day Years Used Date Smoking Tobacco: Never Assessed Sex Assigned at Date Recorded Not on file documented as of this encounter Plan of Treatment Not on filedocumented as of this encounter Procedures Procedure Name Priority Date/Time Associated Diagnosis Comme nts HEMATOLOGY Routine 12/18/2021 Results for thi s procedure are in the resu lts section. documented in this encounter Results (ABNORMAL) HEMATOLOGY (12/18/2021) [facility] gist Method Time Signature Hemoglobin 10.2 (L) 14.0 - [facility] 18.0 g/dL [facility] Hemoglobin x 3 30.6 (L) 42.0 - [facility] 54.0 % [facility] Reticulocyte 34.5 (H) 25.4 - [facility] Hemoglobin 31.8 pg [facility] Specimen (Source) Anatomical Collection Method Collection Time Re ceived Time Location / / Volume Laterality 12/18/2021 12/19/2021 2:44 AM CDT Narrative [facility] - 12/19/2021 Unless otherwise specified, test(s) performed at: [facility], [address] [place] [address], [place] [address] PILLOWCASE SEWER: Rojas Kirkland M.D., Ph.D For any questions, please call customer service at FREQUENCY:OTHER Resulting Agency Comment Specimen source: Blood Darren Youssef MD LAB BLOOD ORDERABLES Performing Organization Address City/State/ZIP Code Phon e Number [facility] documented in this encounter Visit Diagnoses Not on filedocumented in this encounter
--- OUTSIDE RECORDS SUMMARY | 2022-04-17 14:30 | XMS_ITS | Encounter Summary ---
:1940 Author Organization [facility] Address [address] [place] [address] Care Team Providers Name Role Phone Unavailable Primary Care Provider Unavailable Encounter Details Date Type Department Care Team Description 2021 Orders Only [facility] O f Darren Escalante MD [address] [place] [address] [place], [place] [phone] (Wo rk) Social History Tobacco Use Types Packs/Day Years Used Date Smoking Tobacco: Never Assessed Sex Assigned at Date Recorded Not on file documented as of this encounter Plan of Treatment Not on filedocumented as of this encounter Procedures Procedure Name Priority Date/Time Associated Diagnosis Comme nts HEMATOLOGY Routine 2021 Results for thi s procedure are in the resu lts section. documented in this encounter Results (ABNORMAL) HEMATOLOGY (2021) P athologist Signature Hemoglobin 10.2 (L) 14.0 - 18.0 [facility] g/dL [facility] Comment: Verified by repeat analysis. Hemoglobin x 3 30.6 (L) 42.0 - 54.0 % [facility] Specimen (Source) Anatomical Collection Method Collection Time Re ceived Time Location / / Volume Laterality 2021 02/27/2021 10:2 4 AM CDT Narrative [facility] - 02/27/2021 Unless otherwise specified, test(s) performed at: [facility], [address] [place] [id number] PUMPER HEAD: Jacob Junior M.D. For any questions, please call customer service at FREQUENCY:OTHER Resulting Agency Comment Specimen source: Blood Darren Youssef MD LAB BLOOD ORDERABLES Performing Organization Address City/State/ZIP Code Phon e Number [facility] documented in this encounter Visit Diagnoses Not on filedocumented in this encounter
--- OUTSIDE RECORDS SUMMARY | 2022-04-17 14:30 | XMS_ITS | Encounter Summary ---
:1940 Author Organization [facility] Address [address] [place] [address] Care Team Providers Name Role Phone Unavailable Primary Care Provider Unavailable Encounter Details Date Type Department Care Team Description 03/04/2021 Orders Only [facility] O f Darren Escalante MD [address] [place] [address] [place], [place] [phone] (Wo rk) Social History Tobacco Use Types Packs/Day Years Used Date Smoking Tobacco: Never Assessed Sex Assigned at Date Recorded Not on file documented as of this encounter Plan of Treatment Not on filedocumented as of this encounter Procedures Procedure Name Priority Date/Time Associated Diagnosis Comme nts HD KINETICS Routine 03/04/2021 Results for thi s procedure are i n the results section . POST CHEMISTRY Routine 03/04/2021 Results for t his procedure are i n the results section . CHEMISTRY Routine 03/04/2021 Results for thi s procedure are i n the results section . SPECTRA [place] LAB RESULTS Routine 03/04/2021 Resul ts for this procedure are i n the results section . documented in this encounter Results Spectra [place] Lab Results (03/04/2021) P athologist Signature eKt/V 1.27 [place] ([place]) eKdrt/V 1.26 [place] nPCR_HD 0.90 [place] spKt/V Gotch 1.48 [place] spKt/V 1.48 [place] (Daugirdas II) eNPCR 0.86 [place] PCR 72.57 [place] eKt/V Gotch 1.26 [place] Specimen (Source) Anatomical Location Collection Method / Collectio n Time Received Time / Laterality Volume 03/04/2021 03/04/2021 [place] Ordering Provider LAB BLOOD ORDERABLES Performing Organization Address City/State/ZIP Code Phon e Number [place] HD KINETICS (03/04/2021) P athologist Signature % Urea 72 65 - 80 % APS SPECTRA Reduction [facility] Specimen (Source) Anatomical Collection Method Collection Time Re ceived Time Location / / Volume Laterality 03/04/2021 03/05/2021 9:44 AM CDT Resulting Agency Comment Specimen source: Plasma Darren Youssef MD LAB BLOOD ORDERABLES Performing Organization Address City/[facility]/ZIP Code Phon e Number APS SPECTRA [facility] POST CHEMISTRY (03/04/2021) athologist Signature BUN Post 18 6 - 19 APS SPECTRA Dialysis mg/dL [facility] Specimen (Source) Anatomical Collection Method Collection Time Re ceived Time Location / / Volume Laterality 03/04/2021 03/05/2021 9:43 AM CDT Narrative APS SPECTRA [facility] - 03/05/2021 Unless otherwise specified, test(s) performed at: [facility], [address] [place] [id number] POT SANDER: Jacob Junior M.D. For any questions, please call customer service at FREQUENCY:OTHER Resulting Agency Comment Specimen source: Plasma Darren Youssef MD LAB BLOOD ORDERABLES Performing Organization Address [facility] [place] Phon e Number APS SPECTRA [facility] (ABNORMAL) Spectrae Chemistry (03/04/2021) athologist Signature BUN 64 (H) 6 - 19 APS SPECTRA mg/dL [facility] Specimen (Source) Anatomical Collection Method Collection Time Re ceived Time Location / / Volume Laterality 03/04/2021 03/05/2021 9:38 AM CDT Narrative APS SPECTRA [facility] - 03/05/2021 Unless otherwise specified, test(s) performed at: [facility], [address] [place] [address] POT SANDER: Jacob Junior M.D. For any questions, please call customer service at FREQUENCY:OTHER Resulting Agency Comment Specimen source: Serum Darren Youssef MD LAB BLOOD ORDERABLES Performing Organization Address City/State/ZIP Code Phon e Number APS SPECTRA [facility] documented in this encounter Visit Diagnoses Not on filedocumented in this encounter
--- OUTSIDE RECORDS SUMMARY | 2022-04-17 14:30 | XMS_ITS | Encounter Summary ---
:1940 Author Organization [facility] Address [address] [place] [address] Care Team Providers Name Role Phone Unavailable Primary Care Provider Unavailable Encounter Details Date Type Department Care Team Description 01/09/2021 Treatment [facility] Darren Singh MD [address] [place] [address] [place], [place] [phone] (Wo rk) Social History Tobacco Use Types Packs/Day Years Used Date Smoking Tobacco: Never Assessed Sex Assigned at Date Recorded Not on file documented as of this encounter Miscellaneous Notes Dialysis Note - Darren Youssef MD - 01/09/2021 11:57 AM CDT Date: Jan 09, 2021 Patient Name: Korey Mackay : 1940 Chart #: [id number] Sex: M This patient was personally seen for a complete visit as part of routine monthly dialysis care. A review of the dialysis treatment, blood pressure, estimated dry weight and recent lab values was made. These were discussed with the patient and staff as necessary. Treatment Data for 01/09/2021 started at:9:58 AM Dialyzer: 180NRe Optiflux Na: 137 mEq/L Bicarb: 35 mEq/L Dialysate: 2.0 K, 2.25 Ca, 1.0 Mg, 100 Dextrose (G2231) Dialysate/Machine Temp (prescribed): 37 C Dialysate/Machine Temp (actual): 37 C BFR (prescribed): 500 BFR (actual): n/a Prescribed time: 03:30 EDW: 102.5 kg Access Type: Active (In Use):AVFistula-Standard/Left Forearm Pre Dialysis Vitals (for 01/09/2021 9:51 AM ) Pre BP (sit): 123/59 Pre Wt: 104.6 kg Temp: 98 F Post Dialysis Vitals (for 01/07/2021 1:23 PM ) Post BP (sit): 131/60 Post Wt: 102.2 kg Current Dialysis Vitals (for 01/09/2021 11:46 AM ) BP (sit): 100/51 AP(-) / WEB PRODUCTION MANAGER: n/a Pulse: 72 Chairside data as of 01/09/2021 11:46 AM Last 3 Treatments 01/07/2021 01/04/2021 01/02/2021 EDW (kg) 102.5 102.5 102.5 Weight Pre (kg) 105.3 106.3 105.7 Weight Post (kg) 102.2 102.8 103 Dialytic Weight Loss (kg) -3.1 -3.5 -2.7 EDW Deviation (kg) -0.3 0.3 0.5 BP Sit Pre 135/53 137/63 141/67 BP Sit Post 131/60 104/51 124/49 UF Rate (mL/kg/hr) 9 10 7 Prescribed BFR 500 500 500 Average Delivered BFR 510 510 500 Prescribed Treatment Time 03:30 03:30 03:30 Actual Treatment Time 03:30 03:30 03:34 Last 3 Values 12/07/2020 11/12/2020 11/09/2020 Access Flow 1182 1086 1238 Treatment Medication Orders Medication Sig Start Date End Date Heparin Sodium (Porcine) 1,000 Units/mL Systemic 2000 units IVP Every Treatment 11/16/2020 11/15/2021 Iron Sucrose (Venofer) 50 mg IVP 1X Week 12/24/2020 12/23/2021 Mircera 200 mcg IVP Every 2 weeks During Dialysis 01/02/2021 01/01/2022 Vitamin D (Calcitriol) Oral 0.25 mcg ORAL Every Treatment 12/19/2020 12/18/2021 PASSENGER CAR CLEANING SUPERVISOR: Darren Youssef MD LOCATION: [phone] SCHEDULE: M-W-F 2nd Shift EDW: kg. DIALYZER: HD DURATION: NEEDLE SIZE: ANTICOAG: BATH: QB: ml/min QD: ml/min Subjective Tolerating dialysis well. 01/09/21: No new symptoms, HD going well, had straight cath with Urologist and went well and has another appt set up for repeat. 12/26/20: He reports feeling ok, tolerating dialysis well without issue and overall labs are stable. RN says dialysis going well. HE had becerril taken out, says Urologist in [place] told him to have nurses at dialysis [...] until follow-up next month with Urology in [place]. Still with hematuria but low UOP he [...] No sob eating well. Will go to [place] soon for the winter. 04/30/20. Pt feels well, denies sob, eating wlll, no new complaints. He decided against urology onsult for his gross hematuria. going to [place] on Thursday. Will show up there Thursday. 09/24/20 No new complaints at this time, Just back from [place]. 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 He now has two homes, one in [place] and one in [place]. He and his winter in [place]. They have one daughter that lives in [place], [place] and they have one son (who's [...] take with largest meal Dialyvite (b complex 01-vyzka-z-biot-zinc) [phone] su-se-vbu-mg tablet Take 1 tablet by mouth once [...] made. Treatment and Adequacy Assessment BUN mg/dL 46 (12/12/20) 42 (11/28/20) 45 (11/07/20) 61 (10/29/20) UREA NITROGEN (MG/DL) IN SER/PLAS - POST DIALYSIS mg/dL 13 (12/12/20) 13 (11/28/20) 14 (11/07/20) 18 (10/29/20) URR % 72 (12/12/20) 69 (11/28/20) 69 (11/07/20) 70 (10/29/20) spKt/V Gotch 1.39 (11/28/20) 1.38 (11/07/20) eKdrt/V 1.18 (11/28/20) 1.17 (11/07/20) spKt/V (Daugirdas II) 1.4700 (12/12/20) 1.3700 (11/28/20) 1.3600 (11/07/20) 1.3700 (10/29/20) BUN mg/dL 72 (10/08/20) 92 (09/17/20) 72 (04/09/20) 61 (03/12/20) 60 (02/15/20) CREATININE (MG/DL) IN SER/PLAS mg/dL 9.92 (10/22/20) 10.76 (09/24/20) 10.43 (09/17/20) 10.04 (04/23/20) 10.10 (03/26/20) URR% % 72 (10/08/20) 72 (09/17/20) 72 (04/09/20) 74 (03/12/20) 73 (02/15/20) Dialysis is adequate. Achieves prescribed time - Yes Achieves prescribed frequency - Yes Continue current prescription. Vascular Access Assessment Type of access: Fistula Surgeon - Urena Staff and patient report access is working well. Anemia Assessment HEMOGLOBIN (G/DL) IN BLOOD g/dL 10.2 (01/02/21) 9.7 (12/26/20) 9.7 (12/19/20) 9.2 (12/12/20) 8.9 (12/05/20) PLATELETS 1000/mcL 164 (12/12/20) 146 (11/07/20) 109 (10/29/20) IRON SATURATION % 31 (12/12/20) 60 (11/07/20) 22 (10/29/20) FERRITIN ng/mL 608 (12/12/20) 684 (10/29/20) WBC (BLOOD) x 103 cells/uL 6.3 (10/22/20) 7.3 (09/24/20) 6.3 (09/17/20) 6.0 (04/23/20) 6.4 (03/26/20) HGB g/dL 9.9 (10/22/20) 10.2 (10/15/20) 10.7 (10/08/20) 11.1 (10/01/20) 10.9 (09/24/20) PLATELETS x 103 cells/uL 119 (10/22/20) 116 (09/24/20) 120 (09/17/20) 155 (04/23/20) 134 (03/26/20) IRON SATURATION % 50 (10/22/20) 20 (09/24/20) 35 (09/17/20) 38 (04/23/20) 43 (03/26/20) FERRITIN ng/mL 650 (10/22/20) 386 (09/24/20) 355 (09/17/20) 687 (04/23/20) 705 (03/26/20) Hemoglobin is at goal. Iron Saturation is at goal. Ferritin is at goal. Will adjust MISTY and intravenous iron per protocol. Hgb improving, hematuria seems to be resolving as well Nutritional and Metabolic Assessment ALBUMIN (G/DL) g/dL 3.7 (12/12/20) 3.4 (11/07/20) 3.7 (10/29/20) Sodium mEq/L 139 (12/12/20) 141 (11/07/20) 137 (10/29/20) POTASSIUM (MMOL/L) IN SER/PLAS mEq/L 3.9 (12/12/20) 4.5 (11/07/20) 4.9 (10/29/20) BICARBONATE (CO2) mEq/L 26 (12/12/20) 24 (11/07/20) 22 (10/29/20) 25 OH VITAMIN D ng/mL 71.8 (12/12/20) 62.5 (10/29/20) ALBUMIN (G/DL) g/dL 4.1 (10/22/20) 4.2 (09/24/20) 4.2 (09/17/20) 4.1 (04/23/20) 3.9 (03/26/20) SODIUM mEq/L 141 (10/22/20) 140 (09/24/20) 141 (09/17/20) 137 (04/23/20) 137 (03/26/20) POTASSIUM (MMOL/L) IN SER/PLAS mEq/L 4.7 (10/22/20) 4.1 (09/24/20) 3.9 (09/17/20) 4.4 (04/23/20) 4.4 (04/09/20) BICARBONATE (CO2) mEq/L 24 (10/22/20) 21 (09/24/20) 22 (09/17/20) 24 (04/23/20) 21 (03/26/20) Albumin is below goal. Encourage high-biological value protein intake. Oral Nutritional Supplement program. Potassium is at goal. Bicarbonate is at goal. Continue same Bone and Mineral Metabolism Assessment Calcium mg/dL 9.2 (12/12/20) 8.4 (11/07/20) 9.5 (10/29/20) CALCIUM (MG/DL) CORRECTED FOR ALBUMIN IN SER/PLAS mg/dL 9.4 (12/12/20) 8.9 (11/07/20) 9.7 (10/29/20) PHOSPHATE (MG/DL) IN SER/PLAS mg/dL 4.9 (12/12/20) 4.1 (11/07/20) 2.1 (10/29/20) CALCIUM PHOSPHORUS PRODUCT, COR 46 (12/12/20) 36 (11/07/20) 20 (10/29/20) IPTH pg/mL 306 (12/12/20) 67 (10/29/20) CALCIUM mg/dL 10.4 (10/22/20) 9.5 (10/08/20) 9.1 (10/01/20) 8.6 (09/17/20) 8.9 (04/09/20) CORRECTED CALCIUM mg/dL 10.4 (10/22/20) 9.5 (10/08/20) 9.1 (10/01/20) 8.6 (09/17/20) 9.0 (04/09/20) PHOSPHORUS mg/dL 3.1 (10/08/20) 4.4 (09/17/20) 4.3 (04/09/20) 3.7 (03/12/20) 4.3 (02/10/20) CA*PO4 CORRCTD Calc 29.5 (10/08/20) 37.8 (09/17/20) 38.7 (04/09/20) 33.3 (03/12/20) 40.4 (02/10/20) IPTH pg/mL 145 (10/08/20) 432 (09/17/20) 202 (03/12/20) Corrected Calcium is at goal. Phosphorous is at goal. Intact PTH is at goal. [place] will adjust binders and vitamin D per protocol and continue to provide dietary education. Cardiovascular Assessment Blood pressures reviewed and are acceptable. Intradialytic weight gains are appropriate. Estimated dry weight is appropriate. Continue same cardiovascular medications. Transplant Status: Patient is not a candidate. Age >80 and co-morbidities Resuscitation Status Stable dialysis, no changes today Monthly labs being drawn today, will review with patient next visit this month Darren Youssef MD [ Signed And locked electronically On 01/09/2021 at 11:58:28 AM ] Transcribed: Darren Youssef ( 01/09/2021 ) documented in this encounter Plan of Treatment Not on filedocumented as of this encounter Visit Diagnoses Not on filedocumented in this encounter
--- OUTSIDE RECORDS SUMMARY | 2022-04-17 14:30 | XMS_ITS | Encounter Summary ---
:1940 Author Organization [facility] Address [address] [place] [address] Care Team Providers Name Role Phone Unavailable Primary Care Provider Unavailable Encounter Details Date Type Department Care Team Description 01/30/2021 Treatment [facility] Darren Singh MD [address] [place] [address] [place], [place] [phone] (Wo rk) Social History Tobacco Use Types Packs/Day Years Used Date Smoking Tobacco: Never Assessed Sex Assigned at Date Recorded Not on file documented as of this encounter Miscellaneous Notes Dialysis Note - Darren Youssef MD - 01/30/2021 11:12 AM CDT Date: Jan 30, 2021 Patient Name: Korey Mackay : 1940 Chart #: [id number] Sex: M This patient was personally seen for a basic visit as part of routine weekly dialysis care. A reviewof the dialysis treatment, blood pressure, estimated dry weight and recent lab values was made. These were discussed with the patient and staff as necessary. Treatment Data for 01/30/2021 started at:9:58 AM Dialyzer: 180NRe Optiflux Na: 137 mEq/L Bicarb: 35 mEq/L Dialysate: 2.0 K, 2.25 Ca, 1.0 Mg, 100 Dextrose (G2231) Dialysate/Machine Temp (prescribed): 37 C Dialysate/Machine Temp (actual): 37 C BFR (prescribed): 500 BFR (actual): 500 Prescribed time: 03:30 EDW: 102.5 kg Access Type: Active (In Use):AVFistula-Standard/Left Forearm Pre Dialysis Vitals (for 01/30/2021 9:52 AM ) Pre BP (sit): 135/67 Pre Wt: 104.6 kg Temp: 96.4 F Post Dialysis Vitals (for 01/28/2021 1:27 PM ) Post BP (sit): 132/66 Post Wt: 102.8 kg Current Dialysis Vitals (for 01/30/2021 11:03 AM ) BP (sit): 133/61 AP(-) / RETIREMENT OFFICER: 234/243 Pulse: 69 Chairside data as of 01/30/2021 11:03 AM Last 3 Treatments 01/28/2021 01/25/2021 01/23/2021 EDW (kg) 102.5 102.5 102.5 Weight Pre (kg) 105.9 104.4 105.6 Weight Post (kg) 102.8 102.6 102.4 Dialytic Weight Loss (kg) -3.1 -1.8 -3.2 EDW Deviation (kg) 0.3 0.1 -0.1 BP Sit Pre 142/70 149/68 158/74 BP Sit Post 132/66 118/50 132/63 UF Rate (mL/kg/hr) 9 5 9 Prescribed BFR 500 500 500 Average Delivered BFR 500 400 510 Prescribed Treatment Time 03:30 03:30 03:30 Actual Treatment Time 03:33 03:30 03:31 Last 3 Values 01/25/2021 12/07/2020 11/12/2020 Access Flow 1457 1182 1086 Treatment Medication Orders Medication Sig Start Date End Date Heparin Sodium (Porcine) 1,000 Units/mL Systemic 2000 units IVP Every Treatment 11/16/2020 11/15/2021 Iron Sucrose (Venofer) 50 mg IVP 1X Week 12/24/2020 12/23/2021 Mircera 100 mcg IVP Every 2 weeks During Dialysis 01/30/2021 01/29/2022 Vitamin D (Calcitriol) Oral 0.25 mcg ORAL Every Treatment 12/19/2020 12/18/2021 ASSISTANT VICE PRESIDENT: Darren Youssef MD LOCATION: [phone] SCHEDULE: -W- 2nd Shift ACCESS: EDW: kg. DIALYZER: HD DURATION: NEEDLE SIZE: ANTICOAG: BATH: QB: ml/min QD: ml/min Subjective Tolerating dialysis well. 01/30: No new symptoms, not urinating on [...] had becerril taken out, says Urologist in [place] told him to have nurses at dialysis [...] until follow-up next month with Urology in [place]. Still with hematuria but low UOP he reports (70 mL this am from overnight). Hgb slow to improve in setting of infection. 11/07/20: Notes below from Dr. Sky. I am meeting patient today for first time. He transferred from [facility] - he was unhappy with [...] No sob eating well. Will go to [place] soon for the winter. 04/30/20. Pt feels well, denies sob, eating wlll, no new complaints. He decided against urology onsult for his gross hematuria. going to [place] on Thursday. Will show up there Thursday. 09/24/20 No new complaints at this time, Just back from [place]. 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 He now has two homes, one in [place] and one in [place]. He and his winter in [place]. They have one daughter that lives in [place], [place] and they have one son (who's had drug problems). Exam Respiratory - Clear to auscultation bilaterally. Cardiovascular Regular rate. Regular rhythm. No murmur heard. Edema - Trace edema. Access - LUE AVF with small aneurysms and excellent t/b Medication List Medication Sig Start Date Aspirin Low Dose (aspirin) 81 mg tablet,delayed release (DR/EC) Take 1 tablet by mouth once a day calcium acetate(phosphat bind) 667 mg capsule Take 1 capsule by mouth once a day with meals. take with largest meal Dialyvite (b complex 33-xumuv-u-biot-zinc) [phone] nd-pi-oyy-mg tablet Take 1 tablet by mouth once [...] and no changes were made. BUN mg/dL 51 (01/09/21) 46 (12/12/20) 42 (11/28/20) 45 (11/07/20) 61 (10/29/20) UREA NITROGEN (MG/DL) IN SER/PLAS - POST DIALYSIS mg/dL 15 (01/09/21) 13 (12/12/20) 13 (11/28/20) 14 (11/07/20) 18 (10/29/20) URR % 71 (01/09/21) 72 (12/12/20) 69 (11/28/20) 69 (11/07/20) 70 (10/29/20) spKt/V Gotch 1.43 (01/09/21) 1.39 (11/28/20) 1.38 (11/07/20) eKdrt/V 1.22 (01/09/21) 1.18 (11/28/20) 1.17 (11/07/20) spKt/V (Daugirdas II) 1.4100 (01/09/21) 1.4700 (12/12/20) 1.3700 (11/28/20) 1.3600 (11/07/20) 1.3700 (10/29/20) BUN mg/dL 72 (10/08/20) 92 (09/17/20) 72 (04/09/20) 61 (03/12/20) 60 (02/15/20) CREATININE (MG/DL) IN SER/PLAS mg/dL 9.92 (10/22/20) 10.76 (09/24/20) 10.43 (09/17/20) 10.04 (04/23/20) 10.10 (03/26/20) URR% % 72 (10/08/20) 72 (09/17/20) 72 (04/09/20) 74 (03/12/20) 73 (02/15/20) HEMOGLOBIN (G/DL) IN BLOOD g/dL 11.2 (01/23/21) 11.2 (01/16/21) 10.8 (01/09/21) 10.2 (01/02/21) 9.7 (12/26/20) PLATELETS 1000/mcL 142 (01/09/21) 164 (12/12/20) 146 (11/07/20) 109 (10/29/20) IRON SATURATION % 37 (01/09/21) 31 (12/12/20) 60 (11/07/20) 22 (10/29/20) FERRITIN [...] (09/24/20) 355 (09/17/20) 687 (04/23/20) 705 (03/26/20) ALBUMIN (G/DL) g/dL 3.8 (01/09/21) 3.7 (12/12/20) 3.4 (11/07/20) Sodium mEq/L 140 (01/09/21) 139 (12/12/20) 141 (11/07/20) POTASSIUM (MMOL/L) IN SER/PLAS mEq/L 4.1 (01/09/21) 3.9 (12/12/20) 4.5 (11/07/20) BICARBONATE (CO2) mEq/L 25 (01/09/21) 26 (12/12/20) 24 (11/07/20) 25 OH VITAMIN D ng/mL 71.8 (12/12/20) 62.5 (10/29/20) ALBUMIN (G/DL) g/dL 4.1 (10/22/20) 4.2 (09/24/20) 4.2 (09/17/20) 4.1 (04/23/20) 3.9 (03/26/20) SODIUM mEq/L 141 (10/22/20) 140 (09/24/20) 141 (09/17/20) 137 (04/23/20) 137 (03/26/20) POTASSIUM (MMOL/L) IN SER/PLAS mEq/L 4.7 (10/22/20) 4.1 (09/24/20) 3.9 (09/17/20) 4.4 (04/23/20) 4.4 (04/09/20) BICARBONATE (CO2) mEq/L 24 (10/22/20) 21 (09/24/20) 22 (09/17/20) 24 (04/23/20) 21 (03/26/20) CALCIUM mg/dL 10.4 (10/22/20) 9.5 (10/08/20) 9.1 (10/01/20) 8.6 (09/17/20) 8.9 (04/09/20) CORRECTED CALCIUM mg/dL 10.4 (10/22/20) 9.5 (10/08/20) 9.1 (10/01/20) 8.6 (09/17/20) 9.0 (04/09/20) PHOSPHORUS mg/dL 3.1 (10/08/20) 4.4 (09/17/20) 4.3 (04/09/20) 3.7 (03/12/20) 4.3 (02/10/20) CA*PO4 CORRCTD Calc 29.5 (10/08/20) 37.8 (09/17/20) 38.7 (04/09/20) 33.3 (03/12/20) 40.4 (02/10/20) IPTH pg/mL 145 (10/08/20) 432 (09/17/20) 202 (03/12/20) BUN/CREATININE (MASS RATIO) IN SER/PLAS 5.4 (01/09/21) 5.5 (12/12/20) 4.8 (11/07/20) CALCIUM mg/dL 10.4 (10/22/20) 9.5 (10/08/20) 9.1 (10/01/20) 8.6 (09/17/20) 8.9 (04/09/20) CA/PHOS PRODUCT Calc 29.5 (10/08/20) 37.8 (09/17/20) 38.3 (04/09/20) 33.3 (03/12/20) 39.6 (02/10/20) CORRECTED CALCIUM mg/dL 10.4 (10/22/20) 9.5 (10/08/20) 9.1 (10/01/20) 8.6 (09/17/20) 9.0 (04/09/20) PHOSPHORUS mg/dL 3.1 (10/08/20) 4.4 (09/17/20) 4.3 (04/09/20) 3.7 (03/12/20) 4.3 (02/10/20) IPTH pg/mL 145 (10/08/20) 432 (09/17/20) 202 (03/12/20) Calcium mg/dL 9.1 (01/09/21) 9.2 (12/12/20) 8.4 (11/07/20) Calcium Phos Product 35 (01/09/21) 45 (12/12/20) 34 (11/07/20) CALCIUM (MG/DL) CORRECTED FOR ALBUMIN IN SER/PLAS mg/dL 9.3 (01/09/21) 9.4 (12/12/20) 8.9 (11/07/20) PHOSPHATE (MG/DL) IN SER/PLAS mg/dL 3.9 (01/09/21) 4.9 (12/12/20) 4.1 (11/07/20) IPTH pg/mL 251 (01/09/21) 306 (12/12/20) 67 (10/29/20) Vascular Access Assessment: Type of access: Fistula Surgeon - Urena Staff and patient report access is working well. Impression and Plan Stable on dialysis, labs overall excellent, will make no changes today Monitor bleeding post-HD from access Darren Youssef MD [ Signed And locked electronically On 01/30/2021 at 11:14:48 AM ] Transcribed: Darren Youssef ( 01/30/2021 ) documented in this encounter Plan of Treatment Not on filedocumented as of this encounter Visit Diagnoses Not on filedocumented in this encounter
--- OUTSIDE RECORDS SUMMARY | 2022-04-17 14:30 | XMS_ITS | Encounter Summary ---
:1940 Author Organization [facility] Address [address] [place] [address] Care Team Providers Name Role Phone Unavailable Primary Care Provider Unavailable Encounter Details Date Type Department Care Team Description 02/14/2021 Treatment [facility] Darren Singh MD [address] [place] [address] [place], [place] [phone] (Wo rk) Social History Tobacco Use Types Packs/Day Years Used Date Smoking Tobacco: Never Assessed Sex Assigned at Date Recorded Not on file documented as of this encounter Plan of Treatment Not on filedocumented as of this encounter Visit Diagnoses Not on filedocumented in this encounter
--- OUTSIDE RECORDS SUMMARY | 2022-04-17 14:30 | XMS_ITS | Encounter Summary ---
:1940 Author Organization [facility] Address [address] [place] [address] Care Team Providers Name Role Phone Unavailable Primary Care Provider Unavailable Encounter Details Date Type Department Care Team Description 05/08/2021 Orders Only [facility] O f Darren Escalante MD [address] [place] [address] [place], [place] [phone] (Wo rk) Social History Tobacco Use Types Packs/Day Years Used Date Smoking Tobacco: Never Assessed Sex Assigned at Date Recorded Not on file documented as of this encounter Plan of Treatment Not on filedocumented as of this encounter Procedures Procedure Name Priority Date/Time Associated Diagnosis Comme nts HD KINETICS Routine 05/08/2021 Results for thi s procedure are i n the results section . POST CHEMISTRY Routine 05/08/2021 Results for t his procedure are i n the results section . IMMUNO CHEMISTRY Routine 05/08/2021 Results for this procedure are i n the results section . HEMATOLOGY Routine 05/08/2021 Results for thi s procedure are i n the results section . CHEMISTRY Routine 05/08/2021 Results for thi s procedure are i n the results section . SPECTRA [place] LAB RESULTS Routine 05/08/2021 Resul ts for this procedure are i n the results section . documented in this encounter Results Spectra [place] Lab Results (05/08/2021) P athologist Signature spKt/V Gotch 1.47 [place] nPCR_HD 0.89 [place] PCR 68.21 [place] eKt/V 1.21 [place] ([place]) eKdrt/V 1.25 [place] eKt/V Gotch 1.25 [place] eNPCR 0.83 [place] spKt/V 1.42 [place] (Daugirdas II) Specimen (Source) Anatomical Location Collection Method / Collectio n Time Received Time / Laterality Volume 05/08/2021 05/08/2021 [place] Ordering Provider LAB BLOOD ORDERABLES Performing Organization Address City/State/ZIP Code Phon e Number [place] HD KINETICS (05/08/2021) P athologist Signature % Urea 70 65 - 80 % APS SPECTRA Reduction [facility] Specimen (Source) Anatomical Collection Method Collection Time Re ceived Time Location / / Volume Laterality 05/08/2021 05/09/2021 4:19 PM WHITEWATER RAFTING GUIDE Narrative APS SPECTRA [facility] - 05/10/2021 Unless otherwise specified, test(s) performed at: [facility], [address] [place] [address] QUARANTINE OFFICER: Jacob Junior M.D. For any questions, please call customer service at FREQUENCY:MONTHLY Resulting Agency Comment Specimen source: Serum Darren Youssef MD LAB BLOOD ORDERABLES Performing Organization Address City/State/ZIP Code Phon e Number APS SPECTRA [facility] (ABNORMAL) Spectrae Chemistry (05/08/2021) Patholo gist Method Time Signature BUN 50 (H) 6 - 19 [facility] mg/dL [facility] Creatinine 9.37 (H) 0.60 - [facility] 1.30 mg/dL [facility] BUN/Creatinine 5.3 (L) 10.0 - [facility] Ratio 20.0 [facility] Sodium 140 136 - 145 [facility] mEq/L [facility] Potassium 4.4 3.5 - 5.1 [facility] mEq/L [facility] Chloride 98 96 - 108 [facility] mEq/L [facility] Bicarbonate 24 22 - 29 [facility]RA (CO2) mEq/L [facility] Calcium 9.0 8.4 - 10.2 [facility] mg/dL [facility] Corrected 9.2 8.4 - 10.2 [facility]RA Calcium mg/dL [facility] Comment: Corrected Calcium is not equivalent to m easured Ionized Calcium. Phosphorus 4.1 2.6 - 4.5 mg/dL APS SPECTRA [facility] Calcium Phosphorus Product 37 0 - 54 [facility]PS SPECTRA [facility] Calcium Phosporus Product, Cor 38 0 - 54 [facility]PS SPECTRA [facility] Total Protein 7.4 6.0 - 8.5 g/dL APS SPECTRA [facility] Albumin 3.8 3.5 - 5.2 g/dL [facility] Globulin, Total 3.6 2.0 - 4.0 g/dL APS SPECT RA [facility] A/G Ratio 1.1 1.0 - 2.0 APS SPECTRA [facility] Iron 60 45 - 160 mcg/dL APS SPECTRA [place] [facility] UIBC 176 155 - 355 mcg/dL APS SPECTRA K [facility] TIBC 236 185 - 515 mcg/dL APS SPECTRA K [facility] Iron Saturation (TSat) 25 20 - 55 % APS SPE CTRA [facility] Specimen (Source) Anatomical Collection Method Collection Time Re ceived Time Location / / Volume Laterality 05/08/2021 05/09/2021 4:16 PM WHITEWATER RAFTING GUIDE Narrative APS SPECTRA [facility] - 05/10/2021 Unless otherwise specified, test(s) performed at: [facility], [address] [place] [address] QUARANTINE OFFICER: Jacob Junior M.D. For any questions, please call customer service at FREQUENCY:MONTHLY Resulting Agency Comment Specimen source: Serum Darren Youssef MD LAB BLOOD ORDERABLES Performing Organization Address City/[facility] Phon e Number APS SPECTRA [facility] POST CHEMISTRY (05/08/2021) P athologist Signature BUN Post 15 6 - 19 APS SPECTRA Dialysis mg/dL [facility] Specimen (Source) Anatomical Collection Method Collection Time Re ceived Time Location / / Volume Laterality 05/08/2021 05/09/2021 3:59 PM WHITEWATER RAFTING GUIDE Narrative APS SPECTRA [facility] - 05/10/2021 Unless otherwise specified, test(s) performed at: [facility], [address] [place] [address] QUARANTINE OFFICER: Jacob Junior M.D. For any questions, please call customer service at FREQUENCY:MONTHLY Resulting Agency Comment Specimen source: Plasma Darren Youssef MD LAB BLOOD ORDERABLES Performing Organization Address City/[facility] Phon e Number APS SPECTRA [facility] IMMUNO CHEMISTRY (05/08/2021) P athologist Signature Hep B Surface Negative Negative APS SPECTRA Ag [facility] Specimen (Source) Anatomical Collection Method Collection Time Re ceived Time Location / / Volume Laterality 05/08/2021 05/09/2021 4:16 PM WHITEWATER RAFTING GUIDE Narrative APS SPECTRA [facility] - 05/09/2021 Unless otherwise specified, test(s) performed at: [facility], [address] [place] [address] QUARANTINE OFFICER: Jacob Junior M.D. For any questions, please call customer service at FREQUENCY:MONTHLY Resulting Agency Comment Specimen source: Serum Darren Youssef MD LAB BLOOD ORDERABLES Performing Organization Address City/[facility] Phon e Number APS SPECTRA [facility] (ABNORMAL) HEMATOLOGY (05/08/2021) Analysis Performed At Patho logist Time Signature WBC 6.73 4.80 - APS SPECTRA 10.80 [facility] 1000/mcL RBC 3.54 (L) 4.70 - APS SPECTRA 6.10 [facility] mill/mcL Hemoglobin 12.0 (L) 14.0 - APS SPECTRA 18.0 g/dL [facility] Hemoglobin x 3 36.0 (L) 42.0 - APS SPECTRA 54.0 % [facility] Hematocrit 35.9 (L) 42.0 - APS SPECTRA 52.0 % [facility] MCV 101 (H) 80 - 100 APS SPECTRA fl [facility] MCH 33.9 (H) 27.0 - [facility]PS [facility]RA 31.0 pg [facility] MCHC 33.5 30.0 - APS SPECTRA 36.0 g/dL [facility] RDW 17.7 (H) 11.5 - APS SPECTRA 14.5 % [facility] Platelets 149 130 - 400 APS SPECTRA 1000/mcL [facility] Specimen (Source) Anatomical Collection Method Collection Time Re ceived Time Location / / Volume Laterality 05/08/2021 05/09/2021 9:51 AM WHITEWATER RAFTING GUIDE Narrative APS SPECTRA [facility] - 05/09/2021 Unless otherwise specified, test(s) performed at: [facility], [address] [place] [address] QUARANTINE OFFICER: Jacob Junior M.D. For any questions, please call customer service at FREQUENCY:MONTHLY Resulting Agency Comment Specimen source: Blood Darren Youssef MD LAB BLOOD ORDERABLES Performing Organization Address City/State/ZIP Code Phon e Number APS SPECTRA [facility] documented in this encounter Visit Diagnoses Not on filedocumented in this encounter
--- OUTSIDE RECORDS SUMMARY | 2022-04-17 14:30 | XMS_ITS | Encounter Summary ---
:1940 Author Organization [facility] Address [address] [place] [address] Care Team Providers Name Role Phone Unavailable Primary Care Provider Unavailable Encounter Details Date Type Department Care Team Description 04/10/2021 Treatment [facility] Darren Singh MD [address] [place] [address] [place], [place] [phone] (Wo rk) Social History Tobacco Use Types Packs/Day Years Used Date Smoking Tobacco: Never Assessed Sex Assigned at Date Recorded Not on file documented as of this encounter Miscellaneous Notes Dialysis Note - Darren Youssef MD - 04/10/2021 12:28 PM CDT Date: Apr 10, 2021 Patient Name: Korey Mackay : 1940 Chart #: [id number] Sex: M This patient was personally seen for a complete visit as part of routine monthly dialysis care. A review of the dialysis treatment, blood pressure, estimated dry weight and recent lab values was made. These were discussed with the patient and staff as necessary. Treatment Data for 04/10/2021 started at:9:54 AM Dialyzer: 180NRe Optiflux Na: 137 mEq/L Bicarb: 33 mEq/L Dialysate: 3.0 K, 2.25 Ca, 0.75 Mg, 100 Dextrose (G2323) Dialysate/Machine Temp (prescribed): 37 C Dialysate/Machine Temp (actual): 35.4 C BFR (prescribed): 500 BFR (actual): 500 Prescribed time: 03:30 EDW: 95 kg Access Type: Active (In Use):AVFistula-Standard/Left Forearm Pre Dialysis Vitals (for 04/10/2021 9:54 AM ) Pre BP (sit): 176/87 Pre Wt: 104.6 kg Temp: 97.5 F Post Dialysis Vitals (for 04/08/2021 1:28 PM ) Post BP (sit): 120/49 Post Wt: 100.1 kg Current Dialysis Vitals (for 04/10/2021 12:01 PM ) BP (sit): 97/48 AP(-) / ACCOUNTS ADMINISTRATOR: 209/212 Pulse: 69 Chairside data as of 04/10/2021 12:01 PM Last 3 Treatments 04/08/2021 04/05/2021 04/03/2021 EDW (kg) 95 95 95 Weight Pre (kg) 103 102.7 102.7 Weight Post (kg) 100.1 99.8 100.5 Dialytic Weight Loss (kg) -2.9 -2.9 -2.2 EDW Deviation (kg) 5.1 4.8 5.5 BP Sit Pre 127/58 146/72 133/67 BP Sit Post 120/49 103/52 148/61 UF Rate (mL/kg/hr) 9 9 7 Prescribed BFR 500 500 500 Average Delivered BFR 510 510 510 Prescribed Treatment Time 03:30 03:30 03:30 Actual Treatment Time 03:31 03:31 03:28 Last 3 Values 03/22/2021 01/25/2021 12/07/2020 Access Flow 1226 1457 1182 Treatment Medication Orders Medication Sig Start Date End Date Heparin Sodium (Porcine) 1,000 Units/mL Systemic 2000 units IVP Every Treatment 11/16/2020 11/15/2021 Iron Sucrose (Venofer) 50 mg IVP 1X Week 12/24/2020 12/23/2021 Mircera 150 mcg IVP Every 2 weeks 04/03/2021 04/02/2022 Vitamin D (Calcitriol) Oral 0.25 mcg ORAL Every Treatment 12/19/2020 12/18/2021 SUPERVISOR CORDUROY CUTTING: Darren Youssef MD LOCATION: [facility] [phone] SCHEDULE: M-W-F 2nd Shift EDW: kg. DIALYZER: HD DURATION: NEEDLE SIZE: ANTICOAG: BATH: QB: ml/min QD: ml/min Subjective Tolerating dialysis well. 04/10/21: Doing well, cough nearly resolved, no [...] had becerril taken out, says Urologist in [place] told him to have nurses at dialysis [...] until follow-up next month with Urology in [place]. Still with hematuria but low UOP he reports (70 mL this am from overnight). Hgb slow to improve in setting of infection. 11/07/20: Notes below from Dr. Sky. I am meeting patient today for first time. He transferred from [facility] - he was unhappy with staff there [...] No sob eating well. Will go to [place] soon for the winter. 04/30/20. Pt feels well, denies sob, eating wlll, no new complaints. He decided against urology onsult for his gross hematuria. going to [place] on Thursday. Will show up there Thursday. 09/24/20 No new complaints at this time, Just back from [place]. 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 He now has two homes, one in [place] and one in [place]. He and his winter in [place]. They have one daughter that lives in [place], [place] and they have one son (who's [...] take with largest meal Dialyvite (b complex 07-waoyj-s-biot-zinc) [phone] fo-qo-zyl-mg tablet Take 1 tablet by mouth once [...] made. Treatment and Adequacy Assessment BUN mg/dL 43 (03/13/21) 64 (03/04/21) 46 (03/01/21) 51 (01/09/21) 46 (12/12/20) UREA NITROGEN (MG/DL) IN SER/PLAS - POST DIALYSIS mg/dL 12 (03/13/21) 18 (03/04/21) 15 (03/01/21) 15 (01/09/21) 13 (12/12/20) URR % 72 (03/13/21) 72 (03/04/21) 67 (03/01/21) 71 (01/09/21) 72 (12/12/20) spKt/V Gotch 1.45 (03/13/21) 1.48 (03/04/21) 1.43 (01/09/21) 1.39 (11/28/20) 1.38 (11/07/20) eKdrt/V 1.23 (03/13/21) 1.26 (03/04/21) 1.22 (01/09/21) 1.18 (11/28/20) 1.17 (11/07/20) spKt/V (Daugirdas II) 1.4400 (03/13/21) 1.4800 (03/04/21) 1.2800 (03/01/21) 1.4100 (01/09/21) 1.4700 (12/12/20) BUN mg/dL 72 (10/08/20) 92 (09/17/20) CREATININE (MG/DL) IN SER/PLAS mg/dL 9.92 (10/22/20) 10.76 (09/24/20) 10.43 (09/17/20) 10.04 (04/23/20) URR% % 72 (10/08/20) 72 (09/17/20) Dialysis is adequate. Achieves prescribed time - Yes Achieves prescribed frequency - Yes Continue current prescription. Vascular Access Assessment Type of access: Fistula Surgeon - [place] Staff and patient report access is working well. Anemia Assessment HEMOGLOBIN (G/DL) IN BLOOD g/dL 10.0 (04/03/21) 9.8 (03/27/21) 9.0 (03/20/21) 8.6 (03/13/21) 8.3 (03/06/21) PLATELETS 1000/mcL 179 (03/13/21) 72 (03/01/21) 142 (01/09/21) 164 (12/12/20) 146 (11/07/20) IRON SATURATION % 45 (03/13/21) 62 (03/06/21) 55 (03/01/21) 37 (01/09/21) 31 (12/12/20) FERRITIN ng/mL 761 (03/13/21) 881 (03/06/21) 608 (12/12/20) 684 (10/29/20) WBC (BLOOD) x 103 cells/uL 6.3 (10/22/20) 7.3 (09/24/20) 6.3 (09/17/20) 6.0 (04/23/20) HGB g/dL 9.9 (10/22/20) 10.2 (10/15/20) 10.7 (10/08/20) 11.1 (10/01/20) 10.9 (09/24/20) PLATELETS x 103 cells/uL 119 (10/22/20) 116 (09/24/20) 120 (09/17/20) 155 (04/23/20) IRON SATURATION % 50 (10/22/20) 20 (09/24/20) 35 (09/17/20) 38 (04/23/20) FERRITIN ng/mL 650 (10/22/20) 386 (09/24/20) 355 (09/17/20) 687 (04/23/20) Hemoglobin is at goal. Iron Saturation is at goal. Ferritin is at goal. Will adjust MISTY and intravenous iron per protocol. Nutritional and Metabolic Assessment ALBUMIN (G/DL) g/dL 3.3 (03/13/21) 3.0 (03/01/21) 3.8 (01/09/21) 3.7 (12/12/20) 3.4 (11/07/20) Sodium mEq/L 141 (03/13/21) 136 (03/01/21) 140 (01/09/21) 139 (12/12/20) 141 (11/07/20) POTASSIUM (MMOL/L) IN SER/PLAS mEq/L 4.4 (03/13/21) 4.4 (03/01/21) 4.1 (01/09/21) 3.9 (12/12/20) 4.5 (11/07/20) BICARBONATE (CO2) mEq/L 26 (03/13/21) 25 (03/01/21) 25 (01/09/21) 26 (12/12/20) 24 (11/07/20) 25 OH VITAMIN D ng/mL 71.8 (12/12/20) 62.5 (10/29/20) ALBUMIN (G/DL) g/dL 4.1 (10/22/20) 4.2 (09/24/20) 4.2 (09/17/20) 4.1 (04/23/20) SODIUM mEq/L 141 (10/22/20) 140 (09/24/20) 141 (09/17/20) 137 (04/23/20) POTASSIUM (MMOL/L) IN SER/PLAS mEq/L 4.7 (10/22/20) 4.1 (09/24/20) 3.9 (09/17/20) 4.4 (04/23/20) BICARBONATE (CO2) mEq/L 24 (10/22/20) 21 (09/24/20) 22 (09/17/20) 24 (04/23/20) Albumin is below goal. Encourage high-biological value protein intake. Oral Nutritional Supplement program. Potassium is at goal. Bicarbonate is at goal. Continue same Bone and Mineral Metabolism Assessment Calcium mg/dL 8.9 (03/13/21) 8.3 (03/01/21) 9.1 (01/09/21) 9.2 (12/12/20) 8.4 (11/07/20) CALCIUM (MG/DL) CORRECTED FOR ALBUMIN IN SER/PLAS mg/dL 9.5 (03/13/21) 9.1 (03/01/21) 9.3 (01/09/21) 9.4 (12/12/20) 8.9 (11/07/20) PHOSPHATE (MG/DL) IN SER/PLAS mg/dL 4.4 (03/13/21) 4.1 (03/01/21) 3.9 (01/09/21) 4.9 (12/12/20) 4.1 (11/07/20) CALCIUM PHOSPHORUS PRODUCT, COR 42 (03/13/21) 37 (03/01/21) 36 (01/09/21) 46 (12/12/20) 36 (11/07/20) IPTH pg/mL 176 (03/13/21) 251 (01/09/21) 306 [...] at goal. Intact PTH is at goal. Enrollment Processor will adjust binders and vitamin D per protocol and continue to provide dietary education. Cardiovascular Assessment Blood pressures reviewed and are acceptable. Intradialytic weight gains are appropriate. Estimated dry weight is too low, will increase. Continue same cardiovascular medications. Increase EDW back up to 95 Kg Transplant Status: Patient is not a candidate. Age >80 and co-morbidities Resuscitation Status Stable dialysis, no changes today Monthly labs today Darren Youssef MD [ Signed And locked electronically On 04/10/2021 at 12:30:12 PM ] Transcribed: Darren Youssef ( 04/10/2021 ) documented in this encounter Plan of Treatment Not on filedocumented as of this encounter Visit Diagnoses Not on filedocumented in this encounter
--- OUTSIDE RECORDS SUMMARY | 2022-04-17 14:30 | XMS_ITS | Encounter Summary ---
:1940 Author Organization [facility] Address [address] [place] [address] Care Team Providers Name Role Phone Unavailable Primary Care Provider Unavailable Encounter Details Date Type Department Care Team Description 02/21/2021 Orders Only [facility] O f Darren Escalante MD [address] [place] [address] [place], [place] [phone] (Wo rk) Social History Tobacco Use Types Packs/Day Years Used Date Smoking Tobacco: Never Assessed Sex Assigned at Date Recorded Not on file documented as of this encounter Plan of Treatment Not on filedocumented as of this encounter Procedures Procedure Name Priority Date/Time Associated Diagnosis Comme nts IMMUNO CHEMISTRY Routine 02/21/2021 Results for this procedure are in the resu lts section. documented in this encounter Results IMMUNO CHEMISTRY (02/21/2021) P athologist Signature Hep B Surface Negative Negative [facility]PS SPECTRA Ag [facility] Hepatitis B >1,000 mIU/mL [facility]PS SPECTRA Surface Ab [facility] Comment: The anti-HBs (Hepatitis B surface antibo dy) is greater than or equal to 10 mIU/mL and implies immunity. The linda ent has either had an antibody response to HBV vaccination, received a transfusion, or has recovered from HBV infection. For post-vaccination antibody testing guidelines for the general public, refer to MMWR Dece 2004/Vol.54 (No. 16); -, and for healthcare [...] ceived Time Location / / Volume Laterality 02/21/2021 02/22/2021 1:2 4 PM CDT Narrative APS SPECTRA [facility] - 02/22/2021 Unless otherwise specified, test(s) performed at: [facility], [address] [place] [address] JAVA DEVELOPER ANALYST: Jacob Junior M.D. For any questions, please call customer service at FREQUENCY:OTHER Resulting Agency Comment Specimen source: Serum Darren Youssef MD LAB BLOOD ORDERABLES Performing Organization Address City/State/ZIP Code Phon e Number APS SPECTRA [facility] documented in this encounter Visit Diagnoses Not on filedocumented in this encounter
--- OUTSIDE RECORDS SUMMARY | 2022-04-17 14:30 | XMS_ITS | Encounter Summary ---
:1940 Author Organization [facility] Address [address] [place] [address] Care Team Providers Name Role Phone Unavailable Primary Care Provider Unavailable Encounter Details Date Type Department Care Team Description 03/06/2021 Orders Only [facility] O f Darren Escalante MD [address] [place] [address] [place], [place] [phone] (Wo rk) Social History Tobacco Use Types Packs/Day Years Used Date Smoking Tobacco: Never Assessed Sex Assigned at Date Recorded Not on file documented as of this encounter Plan of Treatment Not on filedocumented as of this encounter Procedures Procedure Name Priority Date/Time Associated Diagnosis Comme nts HEMATOLOGY Routine 03/06/2021 Results for thi s procedure are in the resu lts section. CHEMISTRY Routine 03/06/2021 Results for thi s procedure are in the resu lts section. documented in this encounter Results (ABNORMAL) HEMATOLOGY (03/06/2021) [facility] gist Method Time Signature Hemoglobin 8.3 (L) 14.0 - APS SPECTRA 18.0 g/dL [facility] Hemoglobin x 3 24.9 (L) 42.0 - APS SPECTRA 54.0 % [facility] Reticulocyte 36.5 (H) 25.4 - APS SPECTRA Hemoglobin 31.8 pg [facility] Specimen (Source) Anatomical Collection Method Collection Time Re ceived Time Location / / Volume Laterality 03/06/2021 03/07/2021 12:3 7 PM CDT Narrative APS SPECTRA [facility] - 03/07/2021 Unless otherwise specified, test(s) performed at: [facility], [address] [place] [address] SOIL TECHNOLOGIST: Jacob Junior M.D. For any questions, please call customer service at FREQUENCY:OTHER Resulting Agency Comment Specimen source: Blood Darren Youssef MD LAB BLOOD ORDERABLES Performing Organization Address City/[facility] Code Phon e Number APS SPECTRA [facility] (ABNORMAL) Spectrae Chemistry (03/06/2021) P athologist Signature Ferritin 881 (H) 22 - 322 APS SPECTRA ng/mL [facility] Iron 117 45 - 160 APS SPECTRA mcg/dL [facility] UIBC 71 (L) 155 - 355 [facility]PS SPECTRA mcg/dL [facility] TIBC 188 185 - 515 APS SPECTRA mcg/dL [facility] Iron Saturation 62 (H) 20 - 55 % APS SPECTRA (TSat) [facility] Specimen (Source) Anatomical Collection Method Collection Time Re ceived Time Location / / Volume Laterality 03/06/2021 03/07/2021 11:1 2 AM CDT Narrative APS SPECTRA [facility] - 03/07/2021 Unless otherwise specified, test(s) performed at: [facility], [address] [place] [address] SOIL TECHNOLOGIST: Jacob Junior M.D. For any questions, please call customer service at FREQUENCY:OTHER Resulting Agency Comment Specimen source: Serum Darren Youssef MD LAB BLOOD ORDERABLES Performing Organization Address City/[facility] Code Phon e Number APS SPECTRA [facility] documented in this encounter Visit Diagnoses Not on filedocumented in this encounter
--- OUTSIDE RECORDS SUMMARY | 2022-04-17 14:30 | XMS_ITS | Encounter Summary ---
:1940 Author Organization [facility] Address [address] [place] [address] Care Team Providers Name Role Phone Unavailable Primary Care Provider Unavailable Encounter Details Date Type Department Care Team Description 03/20/2021 Orders Only [facility] O f Darren Escalante MD [address] [place] [address] [place], [place] [phone] (Wo rk) Social History Tobacco Use Types Packs/Day Years Used Date Smoking Tobacco: Never Assessed Sex Assigned at Date Recorded Not on file documented as of this encounter Plan of Treatment Not on filedocumented as of this encounter Procedures Procedure Name Priority Date/Time Associated Diagnosis Comme nts HEMATOLOGY Routine 03/20/2021 Results for thi s procedure are in the resu lts section. documented in this encounter Results (ABNORMAL) HEMATOLOGY (03/20/2021) Analysis Performed At Patho logist Time Signature Hemoglobin 9.0 (L) 14.0 - APS SPECTRA 18.0 g/dL [facility] Hemoglobin x 3 27.0 (L) 42.0 - APS SPECTRA 54.0 % [facility] Specimen (Source) Anatomical Collection Method Collection Time Re ceived Time Location / / Volume Laterality 03/20/2021 03/21/2021 11:1 0 AM CDT Narrative APS SPECTRA [facility] - 03/21/2021 Unless otherwise specified, test(s) performed at: [facility], [address] [place] [id number] CLOTHING DESIGNER: Jacob Junior M.D. For any questions, please call customer service at FREQUENCY:OTHER Resulting Agency Comment Specimen source: Blood Darren Youssef MD LAB BLOOD ORDERABLES Performing Organization Address City/State/ZIP Code Phon e Number APS SPECTRA [facility] documented in this encounter Visit Diagnoses Not on filedocumented in this encounter
--- OUTSIDE RECORDS SUMMARY | 2022-04-17 14:30 | XMS_ITS | Encounter Summary ---
:1940 Author Organization [facility] Address [address] [place] [address] Care Team Providers Name Role Phone Unavailable Primary Care Provider Unavailable Encounter Details Date Type Department Care Team Description 03/13/2021 [facility] Only [facility] O f Darren Escalante MD [address] [place] [address] [place], [place] [phone] (Wo rk) Social History Tobacco Use Types Packs/Day Years Used Date Smoking Tobacco: Never Assessed Sex Assigned at Date Recorded Not on file documented as of this encounter Plan of Treatment Not on filedocumented as of this encounter Procedures Procedure Name Priority Date/Time Associated Diagnosis Comme nts HD KINETICS Routine 03/13/2021 Results for thi s procedure are i n the results section . POST CHEMISTRY Routine 03/13/2021 Results for t his procedure are i n the results section . IMMUNO CHEMISTRY Routine 03/13/2021 Results for this procedure are i n the results section . HEMATOLOGY Routine 03/13/2021 Results for thi s procedure are i n the results section . CHEMISTRY Routine 03/13/2021 Results for thi s procedure are i n the results section . CHEMISTRY Routine 03/13/2021 Results for thi s procedure are i n the results section . SPECTRA [place] LAB RESULTS Routine 03/13/2021 Resul ts for this procedure are i n the results section . documented in this encounter Results Spectra [place] Lab Results (03/13/2021) P athologist Signature eKdrt/V 1.23 [place] eNPCR 0.71 [place] eKt/V Gotch 1.23 [place] eKt/V 1.23 [place] ([place]) spKt/V Gotch 1.45 [place] spKt/V 1.44 [place] ([place] II) nPCR_HD 0.77 [place] PCR 61.48 [place] Specimen (Source) Anatomical Location Collection Method / Collectio n Time Received Time / Laterality Volume 03/13/2021 03/13/2021 [place] Ordering Provider LAB BLOOD ORDERABLES Performing Organization Address City/[facility]/ZIP Code Phon e Number [place] HD KINETICS (03/13/2021) P athologist Signature % Urea 72 65 - 80 % APS SPECTRA Reduction [facility] Specimen (Source) Anatomical Collection Method Collection Time Re ceived Time Location / / Volume Laterality 03/13/2021 03/14/2021 8:44 PM CDT Narrative APS SPECTRA [facility] - 03/15/2021 Unless otherwise specified, test(s) performed at: [facility] [employer], [address] [place] [address] ORDER PULLER: Jacob Junior M.D. For any questions, please call customer service at FREQUENCY:MONTHLY Resulting Agency Comment Specimen source: Serum Darren Youssef MD LAB BLOOD ORDERABLES Performing Organization Address City/[facility] Phon e Number APS SPECTRA [facility] IMMUNO CHEMISTRY (03/13/2021) P athologist Signature Hep B Surface Negative Negative APS SPECTRA Ag [facility] Specimen (Source) Anatomical Collection Method Collection Time Re ceived Time Location / / Volume Laterality 03/13/2021 03/14/2021 8:43 PM CDT Resulting Agency Comment Specimen source: Serum Darren Youssef MD LAB BLOOD ORDERABLES Performing Organization Address City/[facility] Code Phon e Number APS SPECTRA [facility] (ABNORMAL) Spectrae Chemistry (03/13/2021) Analysis Performed At Patho logist Time Signature Ferritin 761 (H) 22 - 322 APS SPECTRA ng/mL [facility] BUN 43 (H) 6 - 19 APS SPECTRA mg/dL [facility] Sodium 141 136 - 145 APS SPECTRA mEq/L [facility] Potassium 4.4 3.5 - 5.1 APS SPECTRA mEq/L [facility] Chloride 101 96 - 108 APS SPECTRA mEq/L [facility] Bicarbonate 26 22 - 29 APS SPECTRA (CO2) mEq/L [facility] Calcium 8.9 8.4 - 10.2 APS SPECTRA mg/dL [facility] Corrected 9.5 8.4 - 10.2 APS SPECTRA Calcium mg/dL [facility] Comment: Corrected Calcium is not equivalent to m easured Ionized Calcium. Phosphorus 4.4 2.6 - 4.5 mg/dL APS SPECTRA K [facility] Calcium Phosphorus Product 39 0 - 54 APS SPECTRA [facility] Calcium Phosporus Product, Cor 42 0 - 54 APS SPECTRA [facility] Alkaline Phosphatase 83 40 - 129 U/L APS SP ECTRA [facility] Total Protein 7.1 6.0 - 8.5 g/dL APS SPECTRA [facility] Albumin 3.3 (L) 3.5 - 5.2 g/dL APS SPECTRA [facility] Globulin, Total 3.8 2.0 - 4.0 g/dL APS SPECT RA [facility] A/G Ratio 0.9 (L) 1.0 - 2.0 APS SPECTRA [facility] Magnesium 2.0 1.6 - 2.6 mg/dL APS SPECTRA [facility] Iron 88 45 - 160 mcg/dL APS SPECTRA [place] [facility] UIBC 108 (L) 155 - 355 mcg/dL APS SPECTRA K [facility] TIBC 196 185 - 515 mcg/dL APS SPECTRA K [facility] Iron Saturation (TSat) 45 20 - 55 % APS SPE CTRA [facility] Creatinine 8.75 (H) 0.60 - 1.30 mg/dL APS SPECTRA [facility] BUN/Creatinine Ratio 4.9 (L) 10.0 - 20.0 APS SPE CTRA [facility] Specimen (Source) Anatomical Collection Method Collection Time Re ceived Time Location / / Volume Laterality 03/13/2021 03/14/2021 8:43 PM CDT Narrative APS SPECTRA [facility] - 03/15/2021 Unless otherwise specified, test(s) performed at: [facility], [address] [place] [id number] ORDER PULLER: Jacob Junior M.D. For any questions, please call customer service at FREQUENCY:MONTHLY Resulting Agency Comment Specimen source: Serum Darren Youssef MD LAB BLOOD ORDERABLES Performing Organization Address City/State/ZIP Code Phon e Number APS SPECTRA [facility] (ABNORMAL) Spectrae Chemistry (03/13/2021) P athologist Signature PTH 176 (H) 16 - 80 APS SPECTRA pg/mL [facility] Specimen (Source) Anatomical Collection Method Collection Time Re ceived Time Location / / Volume Laterality 03/13/2021 03/14/2021 1:48 PM CDT Narrative APS SPECTRA [facility] - 03/15/2021 Unless otherwise specified, test(s) performed at: [facility], [address] [place], [place] [id number] ORDER PULLER: Jacob Junior M.D. For any questions, please call customer service at FREQUENCY:MONTHLY Resulting Agency Comment Specimen source: Plasma Darren Youssef MD LAB BLOOD ORDERABLES Performing Organization Address City/[facility] Phon e Number APS SPECTRA [facility] POST CHEMISTRY (03/13/2021) P athologist Signature BUN Post 12 6 - 19 APS SPECTRA Dialysis mg/dL [facility] Specimen (Source) Anatomical Collection Method Collection Time Re ceived Time Location / / Volume Laterality 03/13/2021 03/14/2021 3:55 PM CDT Narrative APS SPECTRA [facility] - 03/14/2021 Unless otherwise specified, test(s) performed at: [facility] [employer], [address] [place] [address] ORDER PULLER: Jacob Junior M.D. For any questions, please call customer service at FREQUENCY:MONTHLY Resulting Agency Comment Specimen source: Plasma Darren Youssef MD LAB BLOOD ORDERABLES Performing Organization Address City/State/ZIP [facility] Phon e Number APS SPECTRA [facility] (ABNORMAL) HEMATOLOGY (03/13/2021) Analysis Performed At Patho logist Time Signature WBC 5.79 4.80 - APS SPECTRA 10.80 [facility] 1000/mcL RBC 2.70 (L) 4.70 - APS SPECTRA 6.10 [facility] mill/mcL Hemoglobin 8.6 (L) 14.0 - APS SPECTRA 18.0 g/dL [facility] Hemoglobin x 3 25.8 (L) 42.0 - APS SPECTRA 54.0 % [facility] Hematocrit 26.6 (L) 42.0 - APS SPECTRA 52.0 % [facility] MCV 98 80 - 100 APS SPECTRA fl [facility] MCH 32.0 (H) 27.0 - APS SPECTRA 31.0 pg [facility] MCHC 32.5 30.0 - APS SPECTRA 36.0 g/dL [facility] RDW 18.7 (H) 11.5 - APS SPECTRA 14.5 % [facility] Platelets 179 130 - 400 APS SPECTRA 1000/mcL [facility] Specimen (Source) Anatomical Collection Method Collection Time Re ceived Time Location / / Volume Laterality 03/13/2021 03/14/2021 2:10 PM CDT Narrative APS SPECTRA [facility] - 03/14/2021 Unless otherwise specified, test(s) performed at: [facility], [address] [place] [address] ORDER PULLER: Jacob Junior M.D. For any questions, please call customer service at FREQUENCY:MONTHLY Resulting Agency Comment Specimen source: Blood Darren Youssef MD LAB BLOOD ORDERABLES Performing Organization Address City/State/ZIP Code Phon e Number APS SPECTRA [facility] documented in this encounter Visit Diagnoses Not on filedocumented in this encounter
--- OUTSIDE RECORDS SUMMARY | 2022-04-17 14:30 | XMS_ITS | Encounter Summary ---
:1940 Author Organization [facility] Address [address] [place] [address] Care Team Providers Name Role Phone Unavailable Primary Care Provider Unavailable Encounter Details Date Type Department Care Team Description 02/19/2021 Orders Only [facility] O f Darren Escalante MD [address] [place] [address] [place], [place] [phone] (Wo rk) Social History Tobacco Use Types Packs/Day Years Used Date Smoking Tobacco: Never Assessed Sex Assigned at Date Recorded Not on file documented as of this encounter Plan of Treatment Not on filedocumented as of this encounter Procedures Procedure Name Priority Date/Time Associated Diagnosis Comme nts SARS COV 2 BY PCR (HC) Routine 02/19/2021 Resul ts for this procedure are i n the results section . documented in this encounter Results (ABNORMAL) SARS-CoV-2 by PCR (02/19/2021) [facility] Method Time Signature SARS CoV-2 by Positive (A) Negative APS SPECTRA PCR [facility] Comment: Positive: SARS-CoV-2 detected Testing identified the presence of SARS- CoV-2 (the virus that causes COVID-19) in the patient's sample. This test was developed for the detectio n of nucleic acids from the SARS-CoV-2 virus by RT-PCR in individual s who meet SARS-CoV-2 clinical and/or epidemiological criteria. This test has not been FDA cleared or ap proved. This test has been authorized by FDA und er an EUA for use by the authorized laboratory. This test is only authorized for the duration of time that the [place] of the [facility] decla res circumstances exist justifying the authorization of the debra gency use of in vitro diagnostic tests for detection of SARS-CoV-2 virus and/or diagnosis of COVID-19 infection under section 564(b)(1) of the Act, 21 U.S.C. 360bbb-3(b)(1), unless the authorization is terminated o r revoked sooner. To learn more about this test, go to [email or web address].Freespee/pages/-ifpa rts Performed by: CHINMAY Frias [id number], CLIA [id number], [address] [place] [address] Administration Physician: Clarence Deutsch, Ph D, FAC, FFSC ([facility]) Performed by: KAMILLE Frias [id number], [address] ??[place] [address], Trey hWatley MD First COVID-19 Test? YES APS SPECT RA [facility] Employed in Healthcare? NO APS SP ECTRA [facility] Patient Symptomatic NO APS SPECTR A [facility] Congregate Setting? UNKNOWN APS SPECTR A [facility] ? NO APS SPECTRA [facility] Patient Occupation UNKNOWN APS SPECTRA [facility] Specimen Source ANTERIOR NARES APS SPECT RA [facility] Specimen (Source) Anatomical Collection Method Collection Time Re ceived Time Location / / Volume Laterality 02/19/2021 02/20/2021 10:1 6 PM CDT Narrative APS SPECTRA [facility] - 02/20/2021 Unless otherwise specified, test(s) performed at: [employer], [facility] Kyree Matias, [place] [address] FERRY CAPTAIN: Gregorio Stephens M.D. For any questions, please call customer service at FREQUENCY:OTHER Resulting Agency Comment Specimen source: Swab/ANTERIOR NARES Darren Youssef MD LAB [id number] NSOLICITED RESULTS Performing Organization Address City/State/ZIP Code Phon e Number APS SPECTRA [facility] documented in this encounter Visit Diagnoses Not on filedocumented in this encounter
--- OUTSIDE RECORDS SUMMARY | 2022-04-17 14:30 | XMS_ITS | Encounter Summary ---
:1940 Author Organization [facility] Address [address] [place] [address] Care Team Providers Name Role Phone Unavailable Primary Care Provider Unavailable Encounter Details Date Type Department Care Team Description 01/30/2021 Orders Only [facility] O f Darren Escalante MD [address] [place] [address] [place], [place] [phone] (Wo rk) Social History Tobacco Use Types Packs/Day Years Used Date Smoking Tobacco: Never Assessed Sex Assigned at Date Recorded Not on file documented as of this encounter Plan of Treatment Not on filedocumented as of this encounter Procedures Procedure Name Priority Date/Time Associated Diagnosis Comme nts HEMATOLOGY Routine 01/30/2021 Results for thi s procedure are in the resu lts section. documented in this encounter Results (ABNORMAL) HEMATOLOGY (01/30/2021) Analysis Performed At Patho logist Time Signature Hemoglobin 12.0 (L) 14.0 - APS SPECTRA 18.0 g/dL [facility] Hemoglobin x 3 36.0 (L) 42.0 - APS SPECTRA 54.0 % [facility] Specimen (Source) Anatomical Collection Method Collection Time Re ceived Time Location / / Volume Laterality 01/30/2021 01/31/2021 9:26 AM CDT Narrative APS SPECTRA [facility] - 01/31/2021 Unless otherwise specified, test(s) performed at: [email or web address], [address] [place] [address] SEAT PACK INSPECTOR: Jacob Junior M.D. For any questions, please call customer service at FREQUENCY:OTHER Resulting Agency Comment Specimen source: Blood Darren Youssef MD LAB BLOOD ORDERABLES Performing Organization Address City/State/ZIP Code Phon e Number APS SPECTRA [facility] documented in this encounter Visit Diagnoses Not on filedocumented in this encounter
--- OUTSIDE RECORDS SUMMARY | 2022-04-17 14:30 | XMS_ITS | Encounter Summary ---
:1940 Author Organization [facility] Address [address] [place] [address] Care Team Providers Name Role Phone Unavailable Primary Care Provider Unavailable Encounter Details Date Type Department Care Team Description 03/27/2021 Orders Only [facility] O f Darren Escalante MD [address] [place] [address] [place], [place] [phone] (Wo rk) Social History Tobacco Use Types Packs/Day Years Used Date Smoking Tobacco: Never Assessed Sex Assigned at Date Recorded Not on file documented as of this encounter Plan of Treatment Not on filedocumented as of this encounter Procedures Procedure Name Priority Date/Time Associated Diagnosis Comme nts HEMATOLOGY Routine 03/27/2021 Results for thi s procedure are in the resu lts section. documented in this encounter Results (ABNORMAL) HEMATOLOGY (03/27/2021) Analysis Performed At Patho logist Time Signature Hemoglobin 9.8 (L) 14.0 - APS SPECTRA 18.0 g/dL [facility] Hemoglobin x 3 29.4 (L) 42.0 - APS SPECTRA 54.0 % [facility] Specimen (Source) Anatomical Collection Method Collection Time Re ceived Time Location / / Volume Laterality 03/27/2021 03/28/2021 9:02 AM CDT Narrative APS SPECTRA [facility] - 03/28/2021 Unless otherwise specified, test(s) performed at: [employer], [address] [place] [address] BRANCH MANAGER TRAINEE: Jacob Junior M.D. For any questions, please call customer service at FREQUENCY:OTHER Resulting Agency Comment Specimen source: Blood Darren Youssef MD LAB BLOOD ORDERABLES Performing Organization Address City/State/ZIP Code Phon e Number APS SPECTRA [facility] documented in this encounter Visit Diagnoses Not on filedocumented in this encounter
--- OUTSIDE RECORDS SUMMARY | 2022-04-17 14:30 | XMS_ITS | Encounter Summary ---
:1940 Author Organization [facility] Address [address] [place] [address] Care Team Providers Name Role Phone Unavailable Primary Care Provider Unavailable Encounter Details Date Type Department Care Team Description 05/01/2021 Orders Only [facility] O f Darren Escalante MD [address] [place] [address] [place], [place] [phone] (Wo rk) Social History Tobacco Use Types Packs/Day Years Used Date Smoking Tobacco: Never Assessed Sex Assigned at Date Recorded Not on file documented as of this encounter Plan of Treatment Not on filedocumented as of this encounter Procedures Procedure Name Priority Date/Time Associated Diagnosis Comme nts HEMATOLOGY Routine 05/01/2021 Results for thi s procedure are in the resu lts section. documented in this encounter Results (ABNORMAL) HEMATOLOGY (05/01/2021) Analysis Performed At Patho logist Time Signature Hemoglobin 11.4 (L) 14.0 - APS SPECTRA 18.0 g/dL [facility] Hemoglobin x 3 34.2 (L) 42.0 - APS SPECTRA 54.0 % [facility] Specimen (Source) Anatomical Collection Method Collection Time Re ceived Time Location / / Volume Laterality 05/01/2021 05/03/2021 12:1 6 PM DIRECTOR OF MARKET RESEARCH Narrative APS SPECTRA [facility] - 05/03/2021 Unless otherwise specified, test(s) performed at: [employer], [address] [place] [address] ANIMAL DAYCARE PROVIDER: Jacob Junior M.D. For any questions, please call customer service at FREQUENCY:OTHER Resulting Agency Comment Specimen source: Blood Darren Youssef MD LAB BLOOD ORDERABLES Performing Organization Address City/State/ZIP Code Phon e Number APS SPECTRA [facility] documented in this encounter Visit Diagnoses Not on filedocumented in this encounter
--- OUTSIDE RECORDS SUMMARY | 2022-04-17 14:30 | XMS_ITS | Encounter Summary ---
:1940 Author Organization [facility] Address [address] [place] [address] Care Team Providers Name Role Phone Unavailable Primary Care Provider Unavailable Encounter Details Date Type Department Care Team Description 04/17/2021 Orders Only [facility] O f Darren Escalante MD [address] [place] [address] [place], [place] [phone] (Wo rk) Social History Tobacco Use Types Packs/Day Years Used Date Smoking Tobacco: Never Assessed Sex Assigned at Date Recorded Not on file documented as of this encounter Plan of Treatment Not on filedocumented as of this encounter Procedures Procedure Name Priority Date/Time Associated Diagnosis Comme nts HEMATOLOGY Routine 04/17/2021 Results for thi s procedure are in the resu lts section. documented in this encounter Results (ABNORMAL) HEMATOLOGY (04/17/2021) Analysis Performed At Patho logist Time Signature Hemoglobin 10.2 (L) 14.0 - APS SPECTRA 18.0 g/dL [facility] Hemoglobin x 3 30.6 (L) 42.0 - APS SPECTRA 54.0 % [facility] Specimen (Source) Anatomical Collection Method Collection Time Re ceived Time Location / / Volume Laterality 04/17/2021 04/18/2021 10:4 2 PM RESIDENT SERVICES SUPERVISOR Narrative APS SPECTRA [facility] - 04/19/2021 Unless otherwise specified, test(s) performed at: [employer], [address] [place] [address] WHOLESALE REPRESENTATIVE: Jacob Junior M.D. For any questions, please call customer service at FREQUENCY:OTHER Resulting Agency Comment Specimen source: Blood Darren Youssef MD LAB BLOOD ORDERABLES Performing Organization Address City/State/ZIP Code Phon e Number APS SPECTRA [facility] documented in this encounter Visit Diagnoses Not on filedocumented in this encounter
--- OUTSIDE RECORDS SUMMARY | 2022-04-17 14:30 | XMS_ITS | Encounter Summary ---
:1940 Author Organization [facility] Address [address] [place] [address] Care Team Providers Name Role Phone Unavailable Primary Care Provider Unavailable Encounter Details Date Type Department Care Team Description 12/26/2020 Orders Only [facility] O f Darren Escalante MD [address] [place] [address] [place], [place] [phone] (Wo rk) Social History Tobacco Use Types Packs/Day Years Used Date Smoking Tobacco: Never Assessed Sex Assigned at Date Recorded Not on file documented as of this encounter Plan of Treatment Not on filedocumented as of this encounter Procedures Procedure Name Priority Date/Time Associated Diagnosis Comme nts HEMATOLOGY Routine 12/26/2020 Results for thi s procedure are in the resu lts section. documented in this encounter Results (ABNORMAL) HEMATOLOGY (12/26/2020) Analysis Performed At Patho logist Time Signature Hemoglobin 9.7 (L) 14.0 - APS SPECTRA 18.0 g/dL [facility] Hemoglobin x 3 29.1 (L) 42.0 - APS SPECTRA 54.0 % [facility] Specimen (Source) Anatomical Collection Method Collection Time Re ceived Time Location / / Volume Laterality 12/26/2020 12/27/2020 1:17 PM CDT Narrative APS SPECTRA [facility] - 12/27/2020 Unless otherwise specified, test(s) performed at: [employer], [address] [place] [address] DYE WEIGHER: Jacob Junior M.D. For any questions, please call customer service at FREQUENCY:OTHER Resulting Agency Comment Specimen source: Blood Darren Youssef MD LAB BLOOD ORDERABLES Performing Organization Address City/State/ZIP Code Phon e Number APS SPECTRA [facility] documented in this encounter Visit Diagnoses Not on filedocumented in this encounter
--- OUTSIDE RECORDS SUMMARY | 2022-04-17 14:30 | XMS_ITS | Encounter Summary ---
:1940 Author Organization [facility] Address [address] [place] [address] Care Team Providers Name Role Phone Unavailable Primary Care Provider Unavailable Encounter Details Date Type Department Care Team Description 04/10/2021 Orders Only [facility] O f Darren Escalante MD [phone] [place] [address] [place], [place] [phone] (Wo rk) Social History Tobacco Use Types Packs/Day Years Used Date Smoking Tobacco: Never Assessed Sex Assigned at Date Recorded Not on file documented as of this encounter Plan of Treatment Not on filedocumented as of this encounter Procedures Procedure Name Priority Date/Time Associated Diagnosis Comme nts HD KINETICS Routine 04/10/2021 Results for thi s procedure are i n the results section . POST CHEMISTRY Routine 04/10/2021 Results for t his procedure are i n the results section . IMMUNO CHEMISTRY Routine 04/10/2021 Results for this procedure are i n the results section . HEMATOLOGY Routine 04/10/2021 Results for thi s procedure are i n the results section . CHEMISTRY Routine 04/10/2021 Results for thi s procedure are i n the results section . SPECTRA [place] LAB RESULTS Routine 04/10/2021 Resul ts for this procedure are i n the results section . documented in this encounter Results Spectra [place] Lab Results (04/10/2021) P athologist Signature spKt/V 1.35 [place] ([place] II) eKdrt/V 1.18 [place] eKt/V 1.16 [place] ([place]) PCR 75.01 [place] eNPCR 0.88 [place] nPCR_HD 0.95 [place] eKt/V Gotch 1.18 [place] spKt/V Gotch 1.38 [place] Specimen (Source) Anatomical Location Collection Method / Collectio n Time Received Time / Laterality Volume 04/10/2021 04/10/2021 [place] Ordering Provider LAB BLOOD ORDERABLES Performing Organization Address City/State/ZIP Code Phon e Number [place] HD KINETICS (04/10/2021) P athologist Signature % Urea 68 65 - 80 % APS SPECTRA Reduction [facility] Specimen (Source) Anatomical Collection Method Collection Time Re ceived Time Location / / Volume Laterality 04/10/2021 04/11/2021 8:29 PM CDT Narrative APS SPECTRA [facility] - 04/12/2021 Unless otherwise specified, test(s) performed at: [facility], [address] [place] [address] WAREHOUSE TEAM LEADER: Jacob Junior M.D. For any questions, please call customer service at FREQUENCY:MONTHLY Resulting Agency Comment Specimen source: Serum Darren Youssef MD LAB BLOOD ORDERABLES Performing Organization Address City/State/ZIP Code Phon e Number APS SPECTRA [facility] (ABNORMAL) Spectrae Chemistry (04/10/2021) Patholo gist Method Time Signature BUN 56 (H) 6 - 19 APS SPECTRA mg/dL [facility] Creatinine 8.77 (H) 0.60 - APS SPECTRA 1.30 mg/dL [facility] BUN/Creatinine 6.4 (L) 10.0 - APS SPECTRA Ratio 20.0 [facility] Sodium 144 136 - 145 [facility]RA mEq/L [facility] Potassium 4.8 3.5 - 5.1 [facility]RA mEq/L [facility] Chloride 104 96 - 108 A[facility]RA mEq/L [facility] Bicarbonate 25 22 - 29 APS SPECTRA (CO2) mEq/L [facility] Calcium 9.5 8.4 - 10.2 APS SPECTRA mg/dL [facility] Corrected 9.9 8.4 - 10.2 APS SPECTRA Calcium mg/dL [facility] Comment: Corrected Calcium is not equivalent to m easured Ionized Calcium. Phosphorus 2.1 (L) 2.6 - 4.5 mg/dL APS SPECTRA [facility] Calcium Phosphorus Product 20 0 - 54 APS SPECTRA [facility] Calcium Phosporus Product, Cor 21 0 - 54 APS SPECTRA [facility] Total Protein 7.0 6.0 - 8.5 g/dL APS SPECTRA [facility] Albumin 3.5 3.5 - 5.2 g/dL APS SPECTRA [facility] [place] Globulin, Total 3.5 2.0 - 4.0 g/dL APS SPECT RA [facility] A/G Ratio 1.0 1.0 - 2.0 APS SPECTRA [facility] Iron 72 45 - 160 mcg/dL APS SPECTRA [place] [facility] UIBC 142 (L) 155 - 355 mcg/dL APS SPECTRA [facility] TIBC 214 185 - 515 mcg/dL APS SPECTRA [facility] Iron Saturation (TSat) 34 20 - 55 % APS SPE CTRA [facility] Specimen (Source) Anatomical Collection Method Collection Time Re ceived Time Location / / Volume Laterality 04/10/2021 04/11/2021 8:29 PM CDT Narrative APS SPECTRA [facility] - 04/12/2021 Unless otherwise specified, test(s) performed at: [facility], [address] [place] [address] WAREHOUSE TEAM LEADER: Jacob Junior M.D. For any questions, please call customer service at FREQUENCY:MONTHLY Resulting Agency Comment Specimen source: Serum Darren Youssef MD LAB BLOOD ORDERABLES Performing Organization Address City/[facility] Phon e Number APS SPECTRA [facility] IMMUNO CHEMISTRY (04/10/2021) P athologist Signature Hep B Surface Negative Negative APS SPECTRA Ag [facility] Specimen (Source) Anatomical Collection Method Collection Time Re ceived Time Location / / Volume Laterality 04/10/2021 04/11/2021 8:29 PM CDT Narrative APS SPECTRA [facility] - 04/11/2021 Unless otherwise specified, test(s) performed at: [facility], [address] [place] [address] WAREHOUSE TEAM LEADER: Jacob Junior M.D. For any questions, please call customer service at FREQUENCY:MONTHLY Resulting Agency Comment Specimen source: Serum Darren Youssef MD LAB BLOOD ORDERABLES Performing Organization Address City/[facility] Phon e Number APS SPECTRA [facility] POST CHEMISTRY (04/10/2021) P athologist Signature BUN Post 18 6 - 19 APS SPECTRA Dialysis mg/dL [facility] Specimen (Source) Anatomical Collection Method Collection Time Re ceived Time Location / / Volume Laterality 04/10/2021 04/11/2021 10:4 9 AM CDT Narrative APS SPECTRA [facility] - 04/11/2021 Unless otherwise specified, test(s) performed at: [facility], [address] [place] [address] WAREHOUSE TEAM LEADER: Jacob Junior M.D. For any questions, please call customer service at FREQUENCY:MONTHLY Resulting Agency Comment Specimen source: Plasma Darren Youssef MD LAB BLOOD ORDERABLES Performing Organization Address City/State/ZIP Code Phon e Number APS SPECTRA [facility] (ABNORMAL) HEMATOLOGY (04/10/2021) Analysis Performed At Patho logist Time Signature WBC 5.69 4.80 - APS SPECTRA 10.80 [facility] 1000/mcL RBC 3.01 (L) 4.70 - APS SPECTRA 6.10 [facility] mill/mcL Hemoglobin 10.0 (L) 14.0 - APS SPECTRA 18.0 g/dL [facility] Hemoglobin x 3 30.0 (L) 42.0 - APS SPECTRA 54.0 % [facility] Hematocrit 30.3 (L) 42.0 - APS SPECTRA 52.0 % [facility] MCV 101 (H) 80 - 100 APS SPECTRA fl [facility] MCH 33.2 (H) 27.0 - APS SPECTRA 31.0 pg [facility] MCHC 33.0 30.0 - APS SPECTRA 36.0 g/dL [facility] RDW 18.9 (H) 11.5 - APS SPECTRA 14.5 % [facility] Platelets 147 130 - 400 APS SPECTRA 1000/mcL [facility] Specimen (Source) Anatomical Collection Method Collection Time Re ceived Time Location / / Volume Laterality 04/10/2021 04/11/2021 9:43 AM CDT Narrative APS SPECTRA [facility] - 04/11/2021 Unless otherwise specified, test(s) performed at: [facility], [address] [place] [address] WAREHOUSE TEAM LEADER: Jacob Junior M.D. For any questions, please call customer service at FREQUENCY:MONTHLY Resulting Agency Comment Specimen source: Blood Darren Youssef MD LAB BLOOD ORDERABLES Performing Organization Address City/State/ZIP Code Phon e Number APS SPECTRA [facility] documented in this encounter Visit Diagnoses Not on filedocumented in this encounter
--- OUTSIDE RECORDS SUMMARY | 2022-04-17 14:30 | XMS_ITS | Encounter Summary ---
:1940 Author Organization [facility] Address [address] [place] [address] Care Team Providers Name Role Phone Unavailable Primary Care Provider Unavailable Encounter Details Date Type Department Care Team Description 01/09/2021 Orders Only [facility] O f Darren Escalante MD [phone] [place] [address] [place], [place] [phone] (Wo rk) Social History Tobacco Use Types Packs/Day Years Used Date Smoking Tobacco: Never Assessed Sex Assigned at Date Recorded Not on file documented as of this encounter Plan of Treatment Not on filedocumented as of this encounter Procedures Procedure Name Priority Date/Time Associated Diagnosis Comme nts HD KINETICS Routine 01/09/2021 Results for thi s procedure are i n the results section . POST CHEMISTRY Routine 01/09/2021 Results for t his procedure are i n the results section . IMMUNO CHEMISTRY Routine 01/09/2021 Results for this procedure are i n the results section . HEMATOLOGY Routine 01/09/2021 Results for thi s procedure are i n the results section . CHEMISTRY Routine 01/09/2021 Results for thi s procedure are i n the results section . CHEMISTRY Routine 01/09/2021 Results for thi s procedure are i n the results section . SPECTRA [place] LAB RESULTS Routine 01/09/2021 Resul ts for this procedure are i n the results section . documented in this encounter Results Spectra [place] Lab Results (01/09/2021) P athologist Signature spKt/V Gotch 1.43 [place] eKt/V 1.21 [place] ([place]) spKt/V 1.41 [place] ([place]ird[place] II) eNPCR 0.82 [place] nPCR_HD 0.88 [place] eKt/V Gotch 1.22 [place] eKdrt/V 1.22 [place] PCR 71.65 [place] Specimen (Source) Anatomical Location Collection Method / Collectio n Time Received Time / Laterality Volume 01/09/2021 01/09/2021 [place] Ordering Provider LAB BLOOD ORDERABLES Performing Organization Address [facility] Phon e Number [place] IMMUNO CHEMISTRY (01/09/2021) P athologist Signature Hep B Surface Negative Negative APS SPECTRA Ag [facility] Specimen (Source) Anatomical Collection Method Collection Time Re ceived Time Location / / Volume Laterality 01/09/2021 01/10/2021 8:16 PM CDT Narrative APS SPECTRA [facility] - 01/11/2021 Unless otherwise specified, test(s) performed at: [facility], [address] [place] [address] REGIONAL ACCOUNT DIRECTOR: Jacob Junior M.D. For any questions, please call customer service at FREQUENCY:MONTHLY Resulting Agency Comment Specimen source: Serum Darren Youssef MD LAB BLOOD ORDERABLES Performing Organization Address [facility] Phon e Number APS SPECTRA [facility] HD KINETICS (01/09/2021) P athologist Signature % Urea 71 65 - 80 % APS SPECTRA Reduction [facility] Specimen (Source) Anatomical Collection Method Collection Time Re ceived Time Location / / Volume Laterality 01/09/2021 01/10/2021 8:16 PM CDT Narrative APS SPECTRA [facility] - 01/11/2021 Unless otherwise specified, test(s) performed at: [facility], [address] [place], [place] [id number] REGIONAL ACCOUNT DIRECTOR: Jacob Junior M.D. For any questions, please call customer service at FREQUENCY:MONTHLY Resulting Agency Comment Specimen source: Serum Darren Youssef MD LAB BLOOD ORDERABLES Performing Organization Address [facility] Phon e Number APS SPECTRA [facility] (ABNORMAL) Spectrae Chemistry (01/09/2021) Patholo gist Method Time Signature BUN 51 (H) 6 - 19 APS SPECTRA mg/dL [facility] Creatinine 9.44 (H) 0.60 - APS SPECTRA 1.30 mg/dL [facility] BUN/Creatinine 5.4 (L) 10.0 - APS SPECTRA Ratio 20.0 [facility] Sodium 140 136 - 145 APS SPECTRA mEq/L [facility] Potassium 4.1 3.5 - 5.1 APS SPECTRA mEq/L [facility] Chloride 99 96 - 108 APS SPECTRA mEq/L [facility] Bicarbonate 25 22 - 29 APS SPECTRA (CO2) mEq/L [facility] Calcium 9.1 8.4 - 10.2 APS SPECTRA mg/dL [facility] Corrected 9.3 8.4 - 10.2 APS SPECTRA Calcium mg/dL [facility] Comment: Corrected Calcium is not equivalent to m easured Ionized Calcium. Phosphorus 3.9 2.6 - 4.5 mg/dL APS SPECTRA [facility] Calcium Phosphorus Product 35 0 - 54 APS SPECTRA [facility] Calcium Phosporus Product, Cor 36 0 - 54 APS SPECTRA [facility] Total Protein 7.2 6.0 - 8.5 g/dL APS SPECTRA [facility] Albumin 3.8 3.5 - 5.2 g/dL APS SPECTRA [facility] [place] Globulin, Total 3.4 2.0 - 4.0 g/dL APS SPECT RA [facility] A/G Ratio 1.1 1.0 - 2.0 APS SPECTRA [facility] Iron 75 45 - 160 mcg/dL APS SPECTRA [place] [facility] UIBC 129 (L) 155 - 355 mcg/dL APS SPECTRA [facility] TIBC 204 185 - 515 mcg/dL APS SPECTRA [facility] Iron Saturation (TSat) 37 20 - 55 % APS SPE CTRA [facility] Specimen (Source) Anatomical Collection Method Collection Time Re ceived Time Location / / Volume Laterality 01/09/2021 01/10/2021 8:16 PM CDT Narrative APS SPECTRA [facility] - 01/11/2021 Unless otherwise specified, test(s) performed at: [facility], [address] [place] [address] REGIONAL ACCOUNT DIRECTOR: Jacob Junior M.D. For any questions, please call customer service at FREQUENCY:MONTHLY Resulting Agency Comment Specimen source: Serum Darren Youssef MD LAB BLOOD ORDERABLES Performing Organization Address City/State/ZIP Code Phon e Number APS SPECTRA [facility] (ABNORMAL) Spectrae Chemistry (01/09/2021) P athologist Signature PTH 251 (H) 16 - 80 APS SPECTRA pg/mL [facility] Specimen (Source) Anatomical Collection Method Collection Time Re ceived Time Location / / Volume Laterality 01/09/2021 01/10/2021 8:37 PM CDT Narrative APS SPECTRA [facility] - 01/11/2021 Unless otherwise specified, test(s) performed at: [facility], [address] [place] [address] REGIONAL ACCOUNT DIRECTOR: Jacob Junior M.D. For any questions, please call customer service at FREQUENCY:MONTHLY Resulting Agency Comment Specimen source: Plasma Darren Youssef MD LAB BLOOD ORDERABLES Performing Organization Address City/State/ZIP Code Phon e Number APS SPECTRA [facility] (ABNORMAL) HEMATOLOGY (01/09/2021) Analysis Performed At Patho logist Time Signature WBC 6.66 4.80 - APS SPECTRA 10.80 [facility] 1000/mcL RBC 3.19 (L) 4.70 - APS SPECTRA 6.10 [facility] mill/mcL Hemoglobin 10.8 (L) 14.0 - APS SPECTRA 18.0 g/dL [facility] Hemoglobin x 3 32.4 (L) 42.0 - APS SPECTRA 54.0 % [facility] Hematocrit 32.9 (L) 42.0 - APS SPECTRA 52.0 % [facility] MCV 103 (H) 80 - 100 APS SPECTRA fl [facility] MCH 34.0 (H) 27.0 - APS SPECTRA 31.0 pg [facility] MCHC 32.9 30.0 - APS SPECTRA 36.0 g/dL [facility] RDW 17.2 (H) 11.5 - APS SPECTRA 14.5 % [facility] Platelets 142 130 - 400 APS SPECTRA 1000/mcL [facility] Specimen (Source) Anatomical Collection Method Collection Time Re ceived Time Location / / Volume Laterality 01/09/2021 01/10/2021 8:52 PM CDT Narrative APS SPECTRA [facility] - 01/11/2021 Unless otherwise specified, test(s) performed at: [facility], [address] [place] [address] REGIONAL ACCOUNT DIRECTOR: Jacob Junior M.D. For any questions, please call customer service at FREQUENCY:MONTHLY Resulting Agency Comment Specimen source: Blood Darren Youssef MD LAB BLOOD ORDERABLES Performing Organization Address City/State/ZIP Code Phon e Number APS SPECTRA [facility] POST CHEMISTRY (01/09/2021) P athologist Signature BUN Post 15 6 - 19 APS SPECTRA Dialysis mg/dL [facility] Specimen (Source) Anatomical Collection Method Collection Time Re ceived Time Location / / Volume Laterality 01/09/2021 01/10/2021 2:54 PM CDT Narrative APS SPECTRA [facility] - 01/10/2021 Unless otherwise specified, test(s) performed at: [facility], [address] [place] [address] REGIONAL ACCOUNT DIRECTOR: Jacob Junior M.D. For any questions, please call customer service at FREQUENCY:MONTHLY Resulting Agency Comment Specimen source: Plasma Darren Youssef MD LAB BLOOD ORDERABLES Performing Organization Address City/State/ZIP Code Phon e Number APS SPECTRA [facility] documented in this encounter Visit Diagnoses Not on filedocumented in this encounter
--- OUTSIDE RECORDS SUMMARY | 2022-04-17 14:30 | XMS_ITS | Encounter Summary ---
:1940 Author Organization [facility] Address [address] [place] [address] Care Team Providers Name Role Phone Unavailable Primary Care Provider Unavailable Encounter Details Date Type Department Care Team Description 04/24/2021 Treatment [facility] Darren Singh MD [address] [place] [address] [place], [place] [phone] (Wo rk) Social History Tobacco Use Types Packs/Day Years Used Date Smoking Tobacco: Never Assessed Sex Assigned at Date Recorded Not on file documented as of this encounter Miscellaneous Notes Dialysis Note - Darren Youssef MD - 04/24/2021 12:21 PM CST Date: Apr 24, 2021 Patient Name: Korey Mackay : 1940 Chart #: [id number] Sex: M This patient was personally seen for a basic visit as part of routine weekly dialysis care. A reviewof the dialysis treatment, blood pressure, estimated dry weight and recent lab values was made. These were discussed with the patient and staff as necessary. Treatment Data for 04/24/2021 started at:9:59 AM Dialyzer: 180NRe Optiflux Na: 137 mEq/L Bicarb: 33 mEq/L Dialysate: 2.0 K, 2.25 Ca, 1.0 Mg, 100 Dextrose (G2231) Dialysate/Machine Temp (prescribed): 37 C Dialysate/Machine Temp (actual): 36.9 C BFR (prescribed): 500 BFR (actual): 500 Prescribed time: 03:30 EDW: 97 kg Access Type: Active (In Use):AVFistula-Standard/Left Forearm Pre Dialysis Vitals (for 04/24/2021 9:51 AM ) Pre BP (sit): 152/72 Pre Wt: 102.5 kg Temp: 97.9 F Post Dialysis Vitals (for 04/22/2021 1:33 PM ) Post BP (sit): 126/59 Post Wt: 99.6 kg Current Dialysis Vitals (for 04/24/2021 12:02 PM ) BP (sit): 104/51 AP(-) / CRUSHING MILL OPERATOR: 210/210 Pulse: 69 Chairside data as of 04/24/2021 12:02 PM Last 3 Treatments 04/22/2021 04/19/2021 04/17/2021 EDW (kg) 97 97 97 Weight Pre (kg) 103.2 103.5 103.7 Weight Post (kg) 99.6 100.3 101.8 Dialytic Weight Loss (kg) -3.6 -3.2 -1.9 EDW Deviation (kg) 2.6 3.3 4.8 BP Sit Pre 158/76 128/59 156/74 BP Sit Post 126/59 123/58 144/69 UF Rate (mL/kg/hr) 11 9 6 Prescribed BFR 500 500 500 Average Delivered BFR 510 510 510 Prescribed Treatment Time 03:30 03:30 03:30 Actual Treatment Time 03:31 03:31 03:32 Last 3 Values 03/22/2021 01/25/2021 12/07/2020 Access Flow 1226 1457 1182 Treatment Medication Orders Medication Sig Start Date End Date Heparin Sodium (Porcine) 1,000 Units/mL Systemic 2000 units IVP Every Treatment 11/16/2020 11/15/2021 Iron Sucrose (Venofer) 50 mg IVP 1X Week 04/15/2021 04/14/2022 Mircera 200 mcg IVP Every 2 weeks 04/17/2021 04/16/2022 Vitamin D (Calcitriol) Oral 0.25 mcg ORAL Every Treatment 12/19/2020 12/18/2021 FELT DYEING MACHINE TENDER: Darren Youssef MD LOCATION: [facility] [phone] SCHEDULE: M-W- 2nd Shift ACCESS: EDW: kg. DIALYZER: HD DURATION: NEEDLE SIZE: ANTICOAG: BATH: QB: ml/min QD: ml/min Subjective Tolerating dialysis well. 11/17/21: Many complaints today, brings up his bad experience at [facility] again, concerned about new person [...] had becerril taken out, says Urologist in [place] told him to have nurses at dialysis [...] until follow-up next month with Urology in [place]. Still with hematuria but low UOP he reports (70 mL this am from overnight). Hgb slow to improve in setting of infection. 11/07/20: Notes below from Dr. Sky. I am meeting patient today for first time. He transferred from [facility] - he was unhappy with staff [...] No sob eating well. Will go to [place] soon for the winter. 04/30/20. Pt feels well, denies sob, eating wlll, no new complaints. He decided against urology onsult for his gross hematuria. going to [place] on Thursday. Will show up there Thursday. 09/24/20 No new complaints at this time, Just back from [place]. 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 He now has two homes, one in [place] and one in [place]. He and his winter in [place]. They have one daughter that lives in [place], [place] and they have one son (who's [...] take with largest meal Dialyvite (b complex 00-smjxv-a-biot-zinc) [phone] ni-fc-qpd-mg tablet Take 1 tablet by mouth once [...] and no changes were made. BUN mg/dL 56 (04/10/21) 43 (03/13/21) 64 (03/04/21) 46 (03/01/21) 51 (01/09/21) UREA NITROGEN (MG/DL) IN SER/PLAS - POST DIALYSIS mg/dL 18 (04/10/21) 12 (03/13/21) 18 (03/04/21) 15 (03/01/21) 15 (01/09/21) URR % 68 (04/10/21) 72 (03/13/21) 72 (03/04/21) 67 (03/01/21) 71 (01/09/21) spKt/V Gotch 1.38 (04/10/21) 1.45 (03/13/21) 1.48 (03/04/21) 1.43 (01/09/21) 1.39 (11/28/20) eKdrt/V 1.18 (04/10/21) 1.23 (03/13/21) 1.26 (03/04/21) 1.22 (01/09/21) 1.18 (11/28/20) spKt/V (Daugirdas II) 1.3500 (04/10/21) 1.4400 (03/13/21) 1.4800 (03/04/21) 1.2800 (03/01/21) 1.4100 (01/09/21) BUN mg/dL 72 (10/08/20) 92 (09/17/20) CREATININE (MG/DL) IN SER/PLAS mg/dL 9.92 (10/22/20) 10.76 (09/24/20) 10.43 (09/17/20) URR% % 72 (10/08/20) 72 (09/17/20) HEMOGLOBIN (G/DL) IN BLOOD g/dL 10.2 (04/17/21) 10.0 (04/10/21) 10.0 (04/03/21) 9.8 (03/27/21) 9.0 (03/20/21) PLATELETS 1000/mcL 147 (04/10/21) 179 (03/13/21) 72 (03/01/21) 142 (01/09/21) 164 (12/12/20) IRON SATURATION % 34 (04/10/21) 45 (03/13/21) 62 (03/06/21) 55 (03/01/21) 37 (01/09/21) FERRITIN ng/mL 761 (03/13/21) 881 (03/06/21) 608 (12/12/20) 684 (10/29/20) WBC (BLOOD) x 103 cells/uL 6.3 (10/22/20) 7.3 (09/24/20) 6.3 (09/17/20) HGB g/dL 9.9 (10/22/20) 10.2 (10/15/20) 10.7 (10/08/20) 11.1 (10/01/20) 10.9 (09/24/20) PLATELETS x 103 cells/uL 119 (10/22/20) 116 (09/24/20) 120 (09/17/20) IRON SATURATION % 50 (10/22/20) 20 (09/24/20) 35 (09/17/20) FERRITIN ng/mL 650 (10/22/20) 386 (09/24/20) 355 (09/17/20) ALBUMIN (G/DL) g/dL 3.5 (04/10/21) 3.3 (03/13/21) 3.0 (03/01/21) Sodium mEq/L 144 (04/10/21) 141 (03/13/21) 136 (03/01/21) POTASSIUM (MMOL/L) IN SER/PLAS mEq/L 4.8 (04/10/21) 4.4 (03/13/21) 4.4 (03/01/21) BICARBONATE (CO2) mEq/L 25 (04/10/21) 26 (03/13/21) 25 (03/01/21) 25 OH VITAMIN D ng/mL 71.8 (12/12/20) 62.5 (10/29/20) ALBUMIN (G/DL) g/dL 4.1 (10/22/20) 4.2 (09/24/20) 4.2 (09/17/20) SODIUM mEq/L 141 (10/22/20) 140 (09/24/20) 141 (09/17/20) POTASSIUM (MMOL/L) IN SER/PLAS mEq/L 4.7 (10/22/20) 4.1 (09/24/20) 3.9 (09/17/20) BICARBONATE (CO2) mEq/L 24 (10/22/20) 21 (09/24/20) 22 (09/17/20) CALCIUM mg/dL 10.4 (10/22/20) 9.5 (10/08/20) 9.1 (10/01/20) 8.6 (09/17/20) CORRECTED CALCIUM mg/dL 10.4 (10/22/20) 9.5 (10/08/20) 9.1 (10/01/20) 8.6 (09/17/20) PHOSPHORUS mg/dL 3.1 (10/08/20) 4.4 (09/17/20) CA*PO4 CORRCTD Calc 29.5 (10/08/20) 37.8 (09/17/20) IPTH pg/mL 145 (10/08/20) 432 (09/17/20) BUN/CREATININE (MASS RATIO) IN SER/PLAS 6.4 (04/10/21) 4.9 (03/13/21) 6.0 (03/01/21) CALCIUM mg/dL 10.4 (10/22/20) 9.5 (10/08/20) 9.1 (10/01/20) 8.6 (09/17/20) CA/PHOS PRODUCT Calc 29.5 (10/08/20) 37.8 (09/17/20) CORRECTED CALCIUM mg/dL 10.4 (10/22/20) 9.5 (10/08/20) 9.1 (10/01/20) 8.6 (09/17/20) PHOSPHORUS mg/dL 3.1 (10/08/20) 4.4 (09/17/20) IPTH pg/mL 145 (10/08/20) 432 (09/17/20) Calcium mg/dL 9.5 (04/10/21) 8.9 (03/13/21) 8.3 (03/01/21) Calcium Phos Product 20 (04/10/21) 39 (03/13/21) 34 (03/01/21) CALCIUM (MG/DL) CORRECTED FOR ALBUMIN IN SER/PLAS mg/dL 9.9 (04/10/21) 9.5 (03/13/21) 9.1 (03/01/21) PHOSPHATE (MG/DL) IN SER/PLAS mg/dL 2.1 (04/10/21) 4.4 (03/13/21) 4.1 (03/01/21) IPTH pg/mL 176 (03/13/21) 251 (01/09/21) 306 (12/12/20) Vascular Access Assessment: Type of access: Fistula Surgeon - Urena Staff and patient report access is working well. Impression and Plan Stable on dialysis Recovering nicely after hospitalization Hold binder for low phos Continue protein supplement Darren Youssef MD [ Signed And locked electronically On 04/24/2021 at 12:24:05 PM ] Transcribed: Darren Youssef ( 04/24/2021 ) documented in this encounter Plan of Treatment Not on filedocumented as of this encounter Visit Diagnoses Not on filedocumented in this encounter
--- OUTSIDE RECORDS SUMMARY | 2022-04-17 14:30 | XMS_ITS | Encounter Summary ---
:1940 Author Organization [facility] Address [address] [place] [address] Care Team Providers Name Role Phone Unavailable Primary Care Provider Unavailable Encounter Details Date Type Department Care Team Description 04/24/2021 Orders Only [facility] O f Darren Escalante MD [address] [place] [address] [place], [place] [phone] (Wo rk) Social History Tobacco Use Types Packs/Day Years Used Date Smoking Tobacco: Never Assessed Sex Assigned at Date Recorded Not on file documented as of this encounter Plan of Treatment Not on filedocumented as of this encounter Procedures Procedure Name Priority Date/Time Associated Diagnosis Comme nts HEMATOLOGY Routine 04/24/2021 Results for thi s procedure are in the resu lts section. documented in this encounter Results (ABNORMAL) HEMATOLOGY (04/24/2021) Analysis Performed At Patho logist Time Signature Hemoglobin 10.9 (L) 14.0 - [facility] 18.0 g/dL [facility] Hemoglobin x 3 32.7 (L) 42.0 - [facility] 54.0 % [facility] Specimen (Source) Anatomical Collection Method Collection Time Re ceived Time Location / / Volume Laterality 04/24/2021 04/25/2021 1:42 PM BARREL BUILDER Narrative [facility] - 04/26/2021 Unless otherwise specified, test(s) performed at: [facility], [address] [place] [address] AUTOMOBILE ENGINE ASSEMBLER: Jacob Junior M.D. For any questions, please call customer service at FREQUENCY:OTHER Resulting Agency Comment Specimen source: Blood Darren Youssef MD LAB BLOOD ORDERABLES Performing Organization Address City/State/ZIP Code Phon e Number [facility] documented in this encounter Visit Diagnoses Not on filedocumented in this encounter
--- OUTSIDE RECORDS SUMMARY | 2022-04-17 14:30 | XMS_ITS | Encounter Summary ---
:1940 Author Organization [facility] Address [address] [place] [address] Care Team Providers Name Role Phone Unavailable Primary Care Provider Unavailable Encounter Details Date Type Department Care Team Description 02/15/2021 Telephone [facility] f Elier Barrientos, RN [address] [place] [phone] Social History Tobacco Use Types Packs/Day Years Used Date Smoking Tobacco: Never Assessed Sex Assigned at Date Recorded Not on file documented as of this encounter Miscellaneous Notes Telephone Encounter - Elier Etienne RN - 02/18/2021 9:56 AM CDT Called [facility]. Informed pt is dialyzing at [facility] + unit on [place]. Called pts number. 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 Telephone Encounter - Elier Etienne RN - 02/15/2021 10:26 AM CDT LMTC regarding ESRD post discharge. documented in this encounter Plan of Treatment Not on filedocumented as of this encounter Visit Diagnoses Not on filedocumented in this encounter
--- OUTSIDE RECORDS SUMMARY | 2022-04-17 14:30 | XMS_ITS | Encounter Summary ---
:1940 Author Organization [facility] Address [address] [place] [address] Care Team Providers Name Role Phone Unavailable Primary Care Provider Unavailable Encounter Details Date Type Department Care Team Description 03/01/2021 Orders Only [facility] O f Darren Escalante MD [address] [place] [address] [place], [place] [phone] (Wo rk) Social History Tobacco Use Types Packs/Day Years Used Date Smoking Tobacco: Never Assessed Sex Assigned at Date Recorded Not on file documented as of this encounter Plan of Treatment Not on filedocumented as of this encounter Procedures Procedure Name Priority Date/Time Associated Diagnosis Comme nts HD KINETICS Routine 03/01/2021 Results for thi s procedure are i n the results section . POST CHEMISTRY Routine 03/01/2021 Results for t his procedure are i n the results section . IMMUNO CHEMISTRY Routine 03/01/2021 Results for this procedure are i n the results section . HEMATOLOGY Routine 03/01/2021 Results for thi s procedure are i n the results section . CHEMISTRY Routine 03/01/2021 Results for thi s procedure are i n the results section . SPECTRA [place] LAB RESULTS Routine 03/01/2021 Resul ts for this procedure are i n the results section . documented in this encounter Results Spectra [place] Lab Results (03/01/2021) P athologist Signature eKt/V 1.06 [place] ([place]) spKt/V 1.28 [place] ([place]) Specimen (Source) Anatomical Location Collection Method / Collectio n Time Received Time / Laterality Volume 03/01/2021 03/01/2021 [place] Ordering Provider LAB BLOOD ORDERABLES Performing Organization Address City/State/ZIP Code Phon e Number [place] HD KINETICS (03/01/2021) P athologist Signature % Urea 67 65 - 80 % [facility] Reduction [facility] Specimen (Source) Anatomical Collection Method Collection Time Re ceived Time Location / / Volume Laterality 03/01/2021 03/02/2021 12:4 3 PM CDT Resulting Agency Comment Specimen source: Serum Darren Youssef MD LAB BLOOD ORDERABLES Performing Organization Address City/[facility]/ZIP Code Phon e Number [facility] POST CHEMISTRY (03/01/2021) P athologist Signature BUN Post 15 6 - 19 [facility] Dialysis mg/dL [facility] Specimen (Source) Anatomical Collection Method Collection Time Re ceived Time Location / / Volume Laterality 03/01/2021 03/02/2021 11:4 7 AM CDT Narrative [facility] - 03/02/2021 Unless otherwise specified, test(s) performed at: [facility], [address] [place] [address] DYE TUB OPERATOR: Jacob Junior M.D. For any questions, please call customer service at FREQUENCY:MONTHLY Resulting Agency Comment Specimen source: Plasma Darren Youssef MD LAB BLOOD ORDERABLES Performing Organization Address City/[facility]/ZIP Code Phon e Number [facility] (ABNORMAL) Spectrae Chemistry (03/01/2021) Patholo gist Method Time Signature BUN 46 (H) 6 - 19 [facility] mg/dL [facility] Creatinine 7.70 (H) 0.60 - [facility] 1.30 mg/dL [facility] BUN/Creatinine 6.0 (L) 10.0 - [facility] Ratio 20.0 [facility] Sodium 136 136 - 145 [facility] mEq/L [facility] Potassium 4.4 3.5 - 5.1 [facility] mEq/L [facility] Chloride 95 (L) 96 - 108 [facility] mEq/L [facility] Bicarbonate 25 22 - 29 [facility] (CO2) mEq/L [facility] Calcium 8.3 (L) 8.4 - 10.2 [facility] mg/dL [facility] Corrected 9.1 8.4 - 10.2 [facility] Calcium mg/dL [facility] Comment: Corrected Calcium is not equivalent to m easured Ionized Calcium. Phosphorus 4.1 2.6 - 4.5 mg/dL [facility] Calcium Phosphorus Product 34 0 - 54 [facility] Calcium Phosporus Product, Cor 37 0 - 54 [facility] Total Protein 6.7 6.0 - 8.5 g/dL [facility] Albumin 3.0 (L) 3.5 - 5.2 g/dL [facility] Globulin, Total 3.7 2.0 - 4.0 g/dL [facility]PS SPECT RA [facility] A/G Ratio 0.8 (L) 1.0 - 2.0 [facility] Iron 92 45 - 160 mcg/dL [facility] [place] [facility] UIBC 76 (L) 155 - 355 mcg/dL [facility] TIBC 168 (L) 185 - 515 mcg/dL [facility] Iron Saturation (TSat) 55 20 - 55 % APS SPE CTRA [facility] Specimen (Source) Anatomical Collection Method Collection Time Re ceived Time Location / / Volume Laterality 03/01/2021 03/02/2021 12:4 3 PM CDT Narrative [facility] - 03/02/2021 Unless otherwise specified, test(s) performed at: [facility], [address] [place] [address] DYE TUB OPERATOR: Jacob Junior M.D. For any questions, please call customer service at FREQUENCY:MONTHLY Resulting Agency Comment Specimen source: Serum Darren Youssef MD LAB BLOOD ORDERABLES Performing Organization Address City/State/ZIP Code Phon e Number [facility] IMMUNO CHEMISTRY (03/01/2021) P athologist Signature Hep B Surface Negative Negative [facility]PS SPECTRA Ag [facility] Specimen (Source) Anatomical Collection Method Collection Time Re ceived Time Location / / Volume Laterality 03/01/2021 03/02/2021 12:4 3 PM CDT Narrative [facility] - 03/02/2021 Unless otherwise specified, test(s) performed at: [facility], [address] [place] [address] DYE TUB OPERATOR: Jacob Junior M.D. For any questions, please call customer service at FREQUENCY:MONTHLY Resulting Agency Comment Specimen source: Serum Darren Youssef MD LAB BLOOD ORDERABLES Performing Organization Address City/State/ZIP Code Phon e Number [facility] (ABNORMAL) HEMATOLOGY (03/01/2021) Analysis Performed At Patho logist Time Signature WBC 6.41 4.80 - [facility] 10.80 [facility] 1000/mcL RBC 2.89 (L) 4.70 - [facility] 6.10 [facility] mill/mcL Hemoglobin 9.0 (L) 14.0 - [facility] 18.0 g/dL [facility] Hemoglobin x 3 27.0 (L) 42.0 - [facility] 54.0 % [facility] Hematocrit 27.5 (L) 42.0 - [facility] 52.0 % [facility] MCV 95 80 - 100 [facility] fl [facility] MCH 31.3 (H) 27.0 - [facility] 31.0 pg [facility] MCHC 32.8 30.0 - [facility] 36.0 g/dL [facility] RDW 16.6 (H) 11.5 - [facility] 14.5 % [facility] Platelets 72 (L) 130 - 400 [facility] 1000/mcL [facility] Specimen (Source) Anatomical Collection Method Collection Time Re ceived Time Location / / Volume Laterality 03/01/2021 03/02/2021 11:1 1 AM CDT Narrative [facility] - 03/02/2021 Unless otherwise specified, test(s) performed at: [facility], [address] [place] [address] DYE TUB OPERATOR: Jacob Junior M.D. For any questions, please call customer service at FREQUENCY:MONTHLY Resulting Agency Comment Specimen source: Blood Darren Youssef MD LAB BLOOD ORDERABLES Performing Organization Address City/[facility] Code Phon e Number [facility] documented in this encounter Visit Diagnoses Not on filedocumented in this encounter
--- OUTSIDE RECORDS SUMMARY | 2022-04-17 14:30 | XMS_ITS | Encounter Summary ---
:1940 Author Organization [facility] Address [address] [place] [address] Care Team Providers Name Role Phone Unavailable Primary Care Provider Unavailable Encounter Details Date Type Department Care Team Description 01/23/2021 Orders Only [facility] O f Darren Escalante MD [address] [place] [address] [place], [place] [phone] (Wo rk) Social History Tobacco Use Types Packs/Day Years Used Date Smoking Tobacco: Never Assessed Sex Assigned at Date Recorded Not on file documented as of this encounter Plan of Treatment Not on filedocumented as of this encounter Procedures Procedure Name Priority Date/Time Associated Diagnosis Comme nts HEMATOLOGY Routine 01/23/2021 Results for thi s procedure are in the resu lts section. documented in this encounter Results (ABNORMAL) HEMATOLOGY (01/23/2021) Analysis Performed At Patho logist Time Signature Hemoglobin 11.2 (L) 14.0 - [facility] 18.0 g/dL [facility] Hemoglobin x 3 33.6 (L) 42.0 - [facility] 54.0 % [facility] Specimen (Source) Anatomical Collection Method Collection Time Re ceived Time Location / / Volume Laterality 01/23/2021 01/24/2021 11:1 8 AM CDT Narrative [facility] - 01/24/2021 Unless otherwise specified, test(s) performed at: [facility], [address] [place] [id number] FITNESS COORDINATOR: Jacob Junior M.D. For any questions, please call customer service at FREQUENCY:OTHER Resulting Agency Comment Specimen source: Blood Darren Youssef MD LAB BLOOD ORDERABLES Performing Organization Address City/State/ZIP Code Phon e Number [facility] documented in this encounter Visit Diagnoses Not on filedocumented in this encounter
--- OUTSIDE RECORDS SUMMARY | 2022-04-17 14:30 | XMS_ITS | Encounter Summary ---
:1940 Author Organization [facility] Address [address] [place] [address] Care Team Providers Name Role Phone Unavailable Primary Care Provider Unavailable Encounter Details Date Type Department Care Team Description 04/03/2021 Treatment [facility] Darren Singh MD [address] [place], [place] [phone] [phone] (Wo rk) Social History Tobacco Use Types Packs/Day Years Used Date Smoking Tobacco: Never Assessed Sex Assigned at Date Recorded Not on file documented as of this encounter Miscellaneous Notes Dialysis Note - Darren Youssef MD - 04/03/2021 11:11 AM CDT Date: Apr 03, 2021 Patient Name: Korey Mackay : 1940 Chart #: [id number] Sex: M This patient was personally seen for a basic visit as part of routine weekly dialysis care. A reviewof the dialysis treatment, blood pressure, estimated dry weight and recent lab values was made. These were discussed with the patient and staff as necessary. Treatment Data for 04/03/2021 started at:10:01 AM Dialyzer: 180NRe Optiflux Na: 137 mEq/L Bicarb: 33 mEq/L Dialysate: 3.0 K, 2.25 Ca, 0.75 Mg, 100 Dextrose (G2323) Dialysate/Machine Temp (prescribed): 37 C Dialysate/Machine Temp (actual): 37.2 C BFR (prescribed): 500 BFR (actual): 500 Prescribed time: 03:30 EDW: 95 kg Access Type: Active (In Use):AVFistula-Standard/Left Forearm Pre Dialysis Vitals (for 04/03/2021 9:51 AM ) Pre BP (sit): 133/67 Pre Wt: 102.7 kg Temp: 97.8 F Post Dialysis Vitals (for 04/01/2021 1:27 PM ) Post BP (sit): 119/56 Post Wt: 99.8 kg Current Dialysis Vitals (for 04/03/2021 11:01 AM ) BP (sit): 87/47 AP(-) / GARAGE DOOR TECHNICIAN: 242/223 Pulse: 69 Chairside data as of 04/03/2021 11:01 AM Last 3 Treatments 04/01/2021 03/29/2021 03/27/2021 EDW (kg) 95 95 95 Weight Pre (kg) 102.1 89.8 99.9 Weight Post (kg) 99.8 87.3 97.2 Dialytic Weight Loss (kg) -2.3 -2.5 -2.7 EDW Deviation (kg) 4.8 -7.7 2.2 BP Sit Pre 131/62 135/63 132/60 BP Sit Post 119/56 116/58 116/48 UF Rate (mL/kg/hr) 7 7 8 Prescribed BFR 500 500 500 Average Delivered BFR 480 520 510 Prescribed Treatment Time 03:30 03:30 03:30 Actual Treatment Time 03:33 03:33 03:32 Last 3 Values 03/22/2021 01/25/2021 12/07/2020 [...] 0.25 mcg ORAL Every Treatment 12/19/2020 12/18/2021 LINK TRAINER MECHANIC: Darren Youssef MD LOCATION: [facility] [phone] SCHEDULE: -W- 2nd Shift ACCESS: EDW: kg. DIALYZER: HD DURATION: NEEDLE SIZE: ANTICOAG: BATH: QB: ml/min QD: ml/min Subjective Tolerating dialysis well. 04/03/21: He is doing much better. Off [...] had becerril taken out, says Urologist in [place] told him to have nurses at dialysis [...] until follow-up next month with Urology in [place]. Still with hematuria but low UOP he reports (70 mL this am from overnight). Hgb slow to improve in setting of infection. 11/07/20: Notes below from Dr. Sky. I am meeting patient today for first time. He transferred from [facility] - he was unhappy with staff there [...] No sob eating well. Will go to [place] soon for the winter. 04/30/20. Pt feels well, denies sob, eating wlll, no new complaints. He decided against urology onsult for his gross hematuria. going to [place] on Thursday. Will show up there Thursday. 09/24/20 No new complaints at this time, Just back from [place]. 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 He now has two homes, one in [place] and one in [place]. He and his winter in [place]. They have one daughter that lives in [place], [place] and they have one son (who's had drug problems). Exam Respiratory - Clear to auscultation bilaterally. Cardiovascular Regular rate. Regular rhythm. No murmur heard. Edema - Trace edema. stable Access - LUE AVF with small aneurysms and excellent t/b Medication List Medication Sig Start Date Aspirin Low Dose (aspirin) 81 mg tablet,delayed release (DR/EC) Take 1 tablet by mouth once a day calcium acetate(phosphat bind) 667 mg capsule Take 1 capsule by mouth once a day with meals. take with largest meal Dialyvite (b complex 15-wscmd-f-biot-zinc) [id number] xy-uv-tio-mg tablet Take 1 tablet by mouth once [...] and no changes were made. BUN mg/dL 43 (03/13/21) 64 (03/04/21) 46 [...] (12/12/20) BUN mg/dL 72 (10/08/20) 92 (09/17/20) 72 (04/09/20) CREATININE (MG/DL) IN SER/PLAS mg/dL 9.92 (10/22/20) 10.76 (09/24/20) 10.43 (09/17/20) 10.04 (04/23/20) URR% % 72 (10/08/20) 72 (09/17/20) 72 (04/09/20) HEMOGLOBIN (G/DL) IN BLOOD g/dL 9.8 (03/27/21) 9.0 (03/20/21) 8.6 (03/13/21) 8.3 (03/06/21) 9.0 (03/01/21) PLATELETS 1000/mcL 179 (03/13/21) 72 (03/01/21) 142 [...] (10/22/20) 386 (09/24/20) 355 (09/17/20) 687 (04/23/20) ALBUMIN (G/DL) g/dL 3.3 (03/13/21) 3.0 (03/01/21) 3.8 (01/09/21) Sodium mEq/L 141 (03/13/21) 136 (03/01/21) 140 (01/09/21) POTASSIUM (MMOL/L) IN SER/PLAS mEq/L 4.4 (03/13/21) 4.4 (03/01/21) 4.1 (01/09/21) BICARBONATE (CO2) mEq/L 26 (03/13/21) 25 (03/01/21) 25 (01/09/21) 25 [place] VITAMIN D ng/mL 71.8 (12/12/20) 62.5 (10/29/20) ALBUMIN (G/DL) g/dL 4.1 (10/22/20) 4.2 (09/24/20) 4.2 (09/17/20) 4.1 (04/23/20) SODIUM mEq/L 141 (10/22/20) 140 (09/24/20) 141 (09/17/20) 137 (04/23/20) POTASSIUM (MMOL/L) IN SER/PLAS mEq/L 4.7 (10/22/20) 4.1 (09/24/20) 3.9 (09/17/20) 4.4 (04/23/20) 4.4 (04/09/20) BICARBONATE (CO2) mEq/L 24 (10/22/20) 21 (09/24/20) 22 (09/17/20) 24 (04/23/20) CALCIUM mg/dL 10.4 (10/22/20) 9.5 (10/08/20) 9.1 (10/01/20) 8.6 (09/17/20) 8.9 (04/09/20) CORRECTED CALCIUM mg/dL 10.4 (10/22/20) 9.5 (10/08/20) 9.1 (10/01/20) 8.6 (09/17/20) 9.0 (04/09/20) PHOSPHORUS mg/dL 3.1 (10/08/20) 4.4 (09/17/20) 4.3 (04/09/20) CA*PO4 CORRCTD Calc 29.5 (10/08/20) 37.8 (09/17/20) 38.7 (04/09/20) IPTH pg/mL 145 (10/08/20) 432 (09/17/20) BUN/CREATININE (MASS RATIO) IN SER/PLAS 4.9 (03/13/21) 6.0 (03/01/21) 5.4 (01/09/21) CALCIUM mg/dL 10.4 (10/22/20) 9.5 (10/08/20) 9.1 (10/01/20) 8.6 (09/17/20) 8.9 (04/09/20) CA/PHOS PRODUCT Calc 29.5 (10/08/20) 37.8 (09/17/20) 38.3 (04/09/20) CORRECTED CALCIUM mg/dL 10.4 (10/22/20) 9.5 (10/08/20) 9.1 (10/01/20) 8.6 (09/17/20) 9.0 (04/09/20) PHOSPHORUS mg/dL 3.1 (10/08/20) 4.4 (09/17/20) 4.3 (04/09/20) IPTH pg/mL 145 (10/08/20) 432 (09/17/20) Calcium mg/dL 8.9 (03/13/21) 8.3 (03/01/21) 9.1 (01/09/21) Calcium Phos Product 39 (03/13/21) 34 (03/01/21) 35 (01/09/21) CALCIUM (MG/DL) CORRECTED FOR ALBUMIN IN SER/PLAS mg/dL 9.5 (03/13/21) 9.1 (03/01/21) 9.3 (01/09/21) PHOSPHATE (MG/DL) IN SER/PLAS mg/dL 4.4 (03/13/21) 4.1 (03/01/21) 3.9 (01/09/21) IPTH pg/mL 176 (03/13/21) 251 (01/09/21) 306 (12/12/20) Vascular Access Assessment: Type of access: Fistula Surgeon - Urena Staff and patient report access is working well. Impression and Plan Stable on dialysis Doing better after recent COVID May need EDW adjusted, but has edema and will re-assess next week with UF as tolerated Darren Youssef MD [ Signed And locked electronically On 04/03/2021 at 11:13:40 AM ] Transcribed: Darren Youssef ( 04/03/2021 ) documented in this encounter Plan of Treatment Not on filedocumented as of this encounter Visit Diagnoses Not on filedocumented in this encounter
--- OUTSIDE RECORDS SUMMARY | 2022-04-17 14:30 | XMS_ITS | Encounter Summary ---
:1940 Author Organization [facility] Address [address] [place] [address] Care Team Providers Name Role Phone Unavailable Primary Care Provider Unavailable Encounter Details Date Type Department Care Team Description 01/16/2021 Orders Only [facility] O f Darren Escalante MD [address] [place] [address] [place], [place] [phone] (Wo rk) Social History Tobacco Use Types Packs/Day Years Used Date Smoking Tobacco: Never Assessed Sex Assigned at Date Recorded Not on file documented as of this encounter Plan of Treatment Not on filedocumented as of this encounter Procedures Procedure Name Priority Date/Time Associated Diagnosis Comme nts HEMATOLOGY Routine 01/16/2021 Results for thi s procedure are in the resu lts section. documented in this encounter Results (ABNORMAL) HEMATOLOGY (01/16/2021) Analysis Performed At Patho logist Time Signature Hemoglobin 11.2 (L) 14.0 - [facility] 18.0 g/dL [facility] Hemoglobin x 3 33.6 (L) 42.0 - [facility] 54.0 % [facility] Specimen (Source) Anatomical Collection Method Collection Time Re ceived Time Location / / Volume Laterality 01/16/2021 01/17/2021 10:4 2 AM CDT Narrative [facility]RA [facility] - 01/17/2021 Unless otherwise specified, test(s) performed at: [facility], [address] [place] [address] FACILITY SERVICE MANAGER: Jacob Junior M.D. For any questions, please call customer service at FREQUENCY:OTHER Resulting Agency Comment Specimen source: Blood Darren Youssef MD LAB BLOOD ORDERABLES Performing Organization Address City/State/ZIP Code Phon e Number [facility] documented in this encounter Visit Diagnoses Not on filedocumented in this encounter
--- OUTSIDE RECORDS SUMMARY | 2022-04-17 14:30 | XMS_ITS | Encounter Summary ---
:1940 Author Organization [facility] Address [address] [place] [address] Care Team Providers Name Role Phone Unavailable Primary Care Provider Unavailable Encounter Details Date Type Department Care Team Description 01/02/2021 Orders Only [facility] O f Darren Escalante MD [address] [place] [address] [place], [place] [phone] (Wo rk) Social History Tobacco Use Types Packs/Day Years Used Date Smoking Tobacco: Never Assessed Sex Assigned at Date Recorded Not on file documented as of this encounter Plan of Treatment Not on filedocumented as of this encounter Procedures Procedure Name Priority Date/Time Associated Diagnosis Comme nts HEMATOLOGY Routine 01/02/2021 Results for thi s procedure are in the resu lts section. documented in this encounter Results (ABNORMAL) HEMATOLOGY (01/02/2021) Analysis Performed At Patho logist Time Signature Hemoglobin 10.2 (L) 14.0 - [facility] 18.0 g/dL [facility] Hemoglobin x 3 30.6 (L) 42.0 - [facility] 54.0 % [facility] Specimen (Source) Anatomical Collection Method Collection Time Re ceived Time Location / / Volume Laterality 01/02/2021 01/03/2021 1:55 PM CDT Narrative [facility]PS S[facility]RA [facility] - 01/03/2021 Unless otherwise specified, test(s) performed at: [facility], [address] [place] [id number] SADDLE CUTTER: Jacob Junior M.D. For any questions, please call customer service at FREQUENCY:OTHER Resulting Agency Comment Specimen source: Blood Darren Youssef MD LAB BLOOD ORDERABLES Performing Organization Address City/State/ZIP Code Phon e Number [facility] documented in this encounter Visit Diagnoses Not on filedocumented in this encounter
--- OUTSIDE RECORDS SUMMARY | 2022-04-17 14:30 | XMS_ITS | Encounter Summary ---
:1940 Author Organization [facility] Address [address] [place] [address] Care Team Providers Name Role Phone Unavailable Primary Care Provider Unavailable Encounter Details Date Type Department Care Team Description 03/20/2021 Treatment [facility] Darren Singh MD [address] [place] [address] [place], [place] [phone] (Wo rk) Social History Tobacco Use Types Packs/Day Years Used Date Smoking Tobacco: Never Assessed Sex Assigned at Date Recorded Not on file documented as of this encounter Miscellaneous Notes Dialysis Note - Darren Youssef MD - 03/20/2021 11:42 AM CDT Date: Mar 20, 2021 Patient Name: Korey Mackay : 1940 Chart #: [id number] Sex: M This patient was personally seen for a complete visit as part of routine monthly dialysis care. A review of the dialysis treatment, blood pressure, estimated dry weight and recent lab values was made. These were discussed with the patient and staff as necessary. Treatment Data for 03/20/2021 started at:9:59 AM Dialyzer: 180NRe Optiflux Na: 137 mEq/L Bicarb: 33 mEq/L Dialysate: 3.0 K, 2.25 Ca, 0.75 Mg, 100 Dextrose (G2323) Dialysate/Machine Temp (prescribed): 37 C Dialysate/Machine Temp (actual): 37 C BFR (prescribed): 500 BFR (actual): 500 Prescribed time: 03:30 EDW: 93 kg Access Type: Active (In Use):AVFistula-Standard/Left Forearm Pre Dialysis Vitals (for 03/20/2021 9:51 AM ) Pre BP (sit): 123/62 Pre Wt: 98.7 kg Temp: 96.4 F Post Dialysis Vitals (for 03/18/2021 1:32 PM ) Post BP (sit): 110/55 Post Wt: 95.5 kg Current Dialysis Vitals (for 03/20/2021 11:34 AM ) BP (sit): 93/47 AP(-) / MANAGER DIGITAL: 219/202 Pulse: 69 Chairside data as of 03/20/2021 11:34 AM Last 3 Treatments 03/18/2021 03/15/2021 03/13/2021 EDW (kg) 93 93 93 Weight Pre (kg) 98.5 97 96.6 Weight Post (kg) 95.5 94.9 95.4 Dialytic Weight Loss (kg) -3 -2.1 -1.2 EDW Deviation (kg) 2.5 1.9 2.4 BP Sit Pre 147/62 110/47 105/45 BP Sit Post 110/55 100/47 118/53 UF Rate (mL/kg/hr) 9 6 4 Prescribed BFR 500 500 500 Average Delivered BFR 510 510 510 Prescribed Treatment Time 03:30 03:30 03:30 Actual Treatment Time 03:31 03:30 03:30 Last 3 Values 01/25/2021 12/07/2020 11/12/2020 Access Flow [id number] [id number] 1086 BUILDING CONSTRUCTION IRONWORKER: Darren Youssef MD LOCATION: [place] [phone] SCHEDULE: -W- 2nd Shift EDW: kg. DIALYZER: HD DURATION: NEEDLE SIZE: ANTICOAG: BATH: QB: ml/min QD: ml/min Subjective Tolerating dialysis well. 03/20/21: Recovered from COVID, off O2, out [...] had becerril taken out, says Urologist in [place] told him to have nurses at dialysis [...] until follow-up next month with Urology in [place]. 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 He now has two homes, one in [place] and one in [place]. He and his winter in [place]. They have one daughter that lives in [place], [place] and they have one son (who's [...] take with largest meal Dialyvite (b complex 43-mwdpl-e-biot-zinc) [phone] rr-hf-hrg-mg tablet Take 1 tablet by mouth once [...] % 72 (10/08/20) 72 (09/17/20) 72 (04/09/20) Dialysis is adequate. Achieves prescribed time - Yes Achieves prescribed frequency - Yes Continue current prescription. Vascular Access Assessment Type of access: Fistula Surgeon - [place] Staff and patient report access is working well. Anemia Assessment HEMOGLOBIN (G/DL) IN BLOOD g/dL 8.6 (03/13/21) 8.3 (03/06/21) 9.0 (03/01/21) 10.2 (02/26/21) 12.0 (01/30/21) PLATELETS 1000/mcL 179 (03/13/21) 72 (03/01/21) 142 [...] (09/17/20) 687 (04/23/20) 705 (03/26/20) Hemoglobin is below goal. Iron Saturation is at goal. Ferritin is at goal. Will adjust MISTY and intravenous iron per protocol. Hospitalization and infection and bleeding with catheterization attempt likely etiology of low Hgb. Trend weekly with MISTY therapy in place Nutritional and Metabolic Assessment ALBUMIN (G/DL) g/dL [...] (04/09/20) IPTH pg/mL 145 (10/08/20) 432 (09/17/20) Corrected Calcium is at goal. Phosphorous is at goal. Intact PTH is at goal. Lead Cook will adjust binders and vitamin D per [...] no changes today beside increase in EDW Bladder outlet obstruction - f/u with Urology, continue prn straight cath Dementia - longstanding, thought to be vascular dementia, stable. Depends on to care for him. HE follows with PCP. No medication recommended at this time. Have discussed with and measures to protect against falls. 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 Monitor Hgb weekly. T2DM - BS's are controlled, not on medication for this currently. Follows with PCP. No changes today History of diabetic foot ulceration - none currently, continue monthly foot checks, discussed home monitoring of feet for wounds or callousus Systolic HF - continue tight fluid management with fluid restriction on dialysis. Continue statin. Can't tolerate ACEI/ARB with lower BP Darren Youssef MD [ Signed And locked electronically On 03/20/2021 at 11:48:24 AM ] Transcribed: Darren Youssef ( 03/20/2021 ) documented in this encounter Plan of Treatment Not on filedocumented as of this encounter Visit Diagnoses Not on filedocumented in this encounter
--- OUTSIDE RECORDS SUMMARY | 2022-04-17 14:31 | XMS_ITS | Encounter Summary ---
:1940 Author Organization [facility] Address [address] [place] [address] Care Team Providers Name Role Phone Unavailable Primary Care Provider Unavailable Encounter Details Date Type Department Care Team Description 11/07/2020 Orders Only [facility] O f Darren Escalante MD [address] [place] [address] [place], [place] [phone] (Wo rk) Social History Tobacco Use Types Packs/Day Years Used Date Smoking Tobacco: Never Assessed Sex Assigned at Date Recorded Not on file documented as of this encounter Plan of Treatment Not on filedocumented as of this encounter Procedures Procedure Name Priority Date/Time Associated Diagnosis Comme nts HD KINETICS Routine 11/07/2020 Results for thi s procedure are i n the results section . POST CHEMISTRY Routine 11/07/2020 Results for t his procedure are i n the results section . IMMUNO CHEMISTRY Routine 11/07/2020 Results for this procedure are i n the results section . HEMATOLOGY Routine 11/07/2020 Results for thi s procedure are i n the results section . CHEMISTRY Routine 11/07/2020 Results for thi s procedure are i n the results section . SPECTRA [place] [facility] RESULTS Routine 11/07/2020 Resul ts for this procedure are i n the results section . documented in this encounter Results Spectra [place] Lab Results (11/07/2020) P athologist Signature eKt/V 1.16 [place] ([place]) PCR 59.69 [place] spKt/V Gotch 1.38 [place] spKt/V 1.36 [place] ([place]) nPCR_HD 0.81 [place] eKdrt/V 1.17 [place] eKt/V Gotch 1.17 [place] eNPCR 0.73 [place] Specimen (Source) Anatomical Location Collection Method / Collectio n Time Received Time / Laterality Volume 11/07/2020 11/07/2020 [place] Ordering Provider LAB BLOOD ORDERABLES Performing Organization Address City/State/ZIP Code Phon e Number [place] HD KINETICS (11/07/2020) P athologist Signature % Urea 69 65 - 80 % [facility] Reduction [facility] Specimen (Source) Anatomical Collection Method Collection Time Re ceived Time Location / / Volume Laterality 11/07/2020 11/09/2020 12:3 6 PM CDT Resulting Agency Comment Specimen source: Plasma Darren Youssef MD LAB BLOOD ORDERABLES Performing Organization Address City/State/ZIP Code Phon e Number [facility] POST CHEMISTRY (11/07/2020) athologist Signature BUN Post 14 6 - 19 [facility] Dialysis mg/dL [facility] Specimen (Source) Anatomical Collection Method Collection Time Re ceived Time Location / / Volume Laterality 11/07/2020 11/09/2020 12:3 6 PM CDT Narrative [facility] - 11/10/2020 Unless otherwise specified, test(s) performed at: [facility], [address] [place], [place] [id number] GLUE LINE OPERATOR: Jacob Junior M.D. For any questions, please call customer service at FREQUENCY:MONTHLY Resulting Agency Comment Specimen source: Plasma Darren Youssef MD LAB BLOOD ORDERABLES Performing Organization Address City/[facility]/ZIP Code Phon e Number [facility] IMMUNO CHEMISTRY (11/07/2020) athologist Signature Hep B Surface Negative Negative [facility] Ag [facility] Specimen (Source) Anatomical Collection Method Collection Time Re ceived Time Location / / Volume Laterality 11/07/2020 11/09/2020 10:2 2 AM CDT Narrative [facility] - 11/10/2020 Unless otherwise specified, test(s) performed at: [facility], [address] [place] [id number] GLUE LINE OPERATOR: Jacob Junior M.D. For any questions, please call customer service at FREQUENCY:MONTHLY Resulting Agency Comment Specimen source: Serum Darren Youssef MD LAB BLOOD ORDERABLES Performing Organization Address City/State/ZIP Code Phon e Number [facility]RA [facility] (ABNORMAL) Spectrae Chemistry (11/07/2020) [facility] Method Time Signature BUN 45 (H) 6 - 19 [facility] mg/dL [facility] Creatinine 9.41 (H) 0.60 - [facility] 1.30 mg/dL [facility] BUN/Creatinine 4.8 (L) 10.0 - [facility] Ratio 20.0 [facility] Sodium 141 136 - 145 [facility] mEq/L [facility] Potassium 4.5 3.5 - 5.1 [facility] mEq/L [facility] Chloride 100 96 - 108 [facility] mEq/L [facility] Bicarbonate 24 22 - 29 [facility] (CO2) mEq/L [facility] Calcium 8.4 8.4 - 10.2 [facility] mg/dL [facility] Corrected 8.9 8.4 - 10.2 [facility] Calcium mg/dL [facility] Comment: Corrected Calcium is not equivalent to m easured Ionized Calcium. Phosphorus 4.1 2.6 - 4.5 mg/dL [facility] K [facility] Calcium Phosphorus Product 34 0 - 54 [facility] Calcium Phosporus Product, Cor 36 0 - 54 [facility] Total Protein 6.6 6.0 - 8.5 g/dL [facility] Albumin 3.4 (L) 3.5 - 5.2 g/dL [facility] Globulin, Total 3.2 2.0 - 4.0 g/dL APS SPECT RA [facility] A/G Ratio 1.1 1.0 - 2.0 [facility] Iron 124 45 - 160 mcg/dL [facility] [place] [facility] UIBC 81 (L) 155 - 355 mcg/dL APS SPECTRA K [facility] TIBC 205 185 - 515 mcg/dL APS SPECTRA K [facility] Iron Saturation (TSat) 60 (H) 20 - 55 % APS SPE CTRA [facility] Specimen (Source) Anatomical Collection Method Collection Time Re ceived Time Location / / Volume Laterality 11/07/2020 11/09/2020 10:2 2 AM CDT Narrative [facility]RA [facility] - 11/09/2020 Unless otherwise specified, test(s) performed at: [facility], [address] [place] [address] GLUE LINE OPERATOR: Jacob Junior M.D. For any questions, please call customer service at FREQUENCY:MONTHLY Resulting Agency Comment Specimen source: Serum Darren Youssef MD LAB BLOOD ORDERABLES Performing Organization Address City/[facility]/ZIP Code Phon e Number [facility]PS [facility]RA [facility] (ABNORMAL) HEMATOLOGY (11/07/2020) Analysis Performed At Patho logist Time Signature WBC 5.71 4.80 - [facility] 10.80 [facility] 1000/mcL RBC 2.56 (L) 4.70 - [facility] 6.10 [facility] mill/mcL Hemoglobin 8.5 (L) 14.0 - [facility] 18.0 g/dL [facility] Hemoglobin x 3 25.5 (L) 42.0 - [facility] 54.0 % [facility] Hematocrit 25.2 (L) 42.0 - [facility] 52.0 % [facility] MCV 98 80 - 100 [facility] fl [facility] MCH 33.3 (H) 27.0 - [facility] 31.0 pg [facility] MCHC 33.8 30.0 - [facility] 36.0 g/dL [facility] RDW 15.1 (H) 11.5 - [facility] 14.5 % [facility] Platelets 146 130 - 400 [facility] 1000/mcL [facility] Specimen (Source) Anatomical Collection Method Collection Time Re ceived Time Location / / Volume Laterality 11/07/2020 11/09/2020 8:14 AM CDT Narrative [facility]RA [facility] - 11/09/2020 Unless otherwise specified, test(s) performed at: [facility], [address] [place] [address] GLUE LINE OPERATOR: Jacob Junior M.D. For any questions, please call customer service at FREQUENCY:MONTHLY Resulting Agency Comment Specimen source: Blood Darren Youssef MD LAB BLOOD ORDERABLES Performing Organization Address City/[facility] Phon e Number [facility]PS [facility]PECTRA [facility] documented in this encounter Visit Diagnoses Not on filedocumented in this encounter
--- OUTSIDE RECORDS SUMMARY | 2022-04-17 14:31 | XMS_ITS | Encounter Summary ---
:1940 Author Organization [facility] Address [address] [place] [address] Care Team Providers Name Role Phone Unavailable Primary Care Provider Unavailable Encounter Details Date Type Department Care Team Description 12/26/2020 Treatment [facility] Darren Singh MD [address] [place] [address] [place], [place] [phone] (Wo rk) Social History Tobacco Use Types Packs/Day Years Used Date Smoking Tobacco: Never Assessed Sex Assigned at Date Recorded Not on file documented as of this encounter Miscellaneous Notes Dialysis Note - Darren Youssef MD - 12/26/2020 10:51 AM CDT Date: Dec 26, 2020 Patient Name: Korey Mackay : 1940 Chart #: [id number] Sex: M This patient was personally seen for a basic visit as part of routine weekly dialysis care. A reviewof the dialysis treatment, blood pressure, estimated dry weight and recent lab values was made. These were discussed with the patient and staff as necessary. Treatment Data for 12/26/2020 started at:9:56 AM Dialyzer: 180NRe Optiflux Na: 137 mEq/L Bicarb: 35 mEq/L Dialysate: 2.0 K, 2.25 Ca, 1.0 Mg, 100 Dextrose (G2231) Dialysate/Machine Temp (prescribed): 37 C Dialysate/Machine Temp (actual): 37.1 C BFR (prescribed): 500 BFR (actual): 500 Prescribed time: 03:30 EDW: 102.5 kg Access Type: Active (In Use):AVFistula-Standard/Left Forearm Pre Dialysis Vitals (for 12/26/2020 9:49 AM ) Pre BP (sit): 134/62 Pre Wt: 106.3 kg Temp: 98.4 F Post Dialysis Vitals (for 12/24/2020 1:15 PM ) Post BP (sit): 108/52 Post Wt: 103.2 kg Current Dialysis Vitals (for 12/26/2020 10:36 AM ) BP (sit): 125/62 AP(-) / PROCEDURES RN: 228/229 Pulse: 69 Chairside data as of 12/26/2020 10:36 AM Last 3 Treatments 12/24/2020 12/21/2020 12/19/2020 EDW (kg) 102.5 102.5 102.5 Weight Pre (kg) 106.4 106.4 105.3 Weight Post (kg) 103.2 102.4 102.3 Dialytic Weight Loss (kg) -3.2 -4 -3 EDW Deviation (kg) 0.7 -0.1 -0.2 BP Sit Pre 169/66 122/50 143/68 BP Sit Post 108/52 117/56 120/57 UF Rate (mL/kg/hr) 9 11 8 Prescribed BFR 500 500 500 Average Delivered BFR 510 500 500 Prescribed Treatment Time 03:30 03:30 03:30 Actual Treatment Time 03:30 03:31 03:31 Last 3 Values 12/07/2020 11/12/2020 11/09/2020 Access Flow [id number] [id number] 1238 Treatment Medication Orders Medication Sig Start Date End Date Heparin Sodium (Porcine) 1,000 Units/mL Systemic 2000 units IVP Every Treatment 11/16/2020 11/15/2021 Iron Sucrose (Venofer) 50 mg IVP 1X Week 12/24/2020 12/23/2021 Mircera 150 mcg IVP Every 2 weeks During Dialysis 12/19/2020 12/18/2021 Vitamin D (Calcitriol) Oral 0.25 mcg ORAL Every Treatment 12/19/2020 12/18/2021 POULTRY CLEANER: Darren Youssef MD LOCATION: [phone] SCHEDULE: -W- 2nd Shift ACCESS: EDW: kg. DIALYZER: HD DURATION: NEEDLE SIZE: ANTICOAG: BATH: QB: ml/min QD: ml/min Subjective Tolerating dialysis well. 12/26/20: He reports feeling ok, tolerating dialysis well without issue and overall labs are stable. RN says dialysis going well. HE had becerril taken out, says Urologist in [place] told him to have nurses at dialysis [...] until follow-up next month with Urology in [place]. 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 He now has two homes, one in [place] and one in [place]. He and his winter in [place]. They have one daughter that lives in [place], [place] and they have one son (who's [...] take with largest meal Dialyvite (b complex 56-wqlbm-w-biot-zinc) [phone] rk-gy-tom-mg tablet Take 1 tablet by mouth once [...] and no changes were made. BUN mg/dL 46 (12/12/20) 42 (11/28/20) 45 [...] 73 (02/15/20) HEMOGLOBIN (G/DL) IN BLOOD g/dL 9.7 (12/19/20) 9.2 (12/12/20) 8.9 (12/05/20) 8.3 (11/28/20) 7.8 (11/21/20) PLATELETS 1000/mcL 164 (12/12/20) 146 (11/07/20) 109 [...] 687 (04/23/20) 705 (03/26/20) ALBUMIN (G/DL) g/dL 3.7 (12/12/20) 3.4 (11/07/20) [...] 202 (03/12/20) BUN/CREATININE (MASS RATIO) IN SER/PLAS 5.5 (12/12/20) 4.8 (11/07/20) 6.3 (10/29/20) CALCIUM mg/dL 10.4 (10/22/20) 9.5 (10/08/20) 9.1 (10/01/20) 8.6 (09/17/20) 8.9 (04/09/20) CA/PHOS PRODUCT Calc 29.5 (10/08/20) 37.8 (09/17/20) 38.3 (04/09/20) 33.3 (03/12/20) 39.6 (02/10/20) CORRECTED CALCIUM mg/dL 10.4 (10/22/20) 9.5 (10/08/20) 9.1 (10/01/20) 8.6 (09/17/20) 9.0 (04/09/20) PHOSPHORUS mg/dL 3.1 (10/08/20) 4.4 (09/17/20) 4.3 (04/09/20) 3.7 (03/12/20) 4.3 (02/10/20) IPTH pg/mL 145 (10/08/20) 432 (09/17/20) 202 (03/12/20) Calcium mg/dL 9.2 (12/12/20) 8.4 (11/07/20) 9.5 (10/29/20) Calcium Phos Product 45 (12/12/20) 34 (11/07/20) 20 (10/29/20) CALCIUM (MG/DL) CORRECTED FOR ALBUMIN IN SER/PLAS mg/dL 9.4 (12/12/20) 8.9 (11/07/20) 9.7 (10/29/20) PHOSPHATE (MG/DL) IN SER/PLAS mg/dL 4.9 (12/12/20) 4.1 (11/07/20) 2.1 (10/29/20) IPTH pg/mL 306 (12/12/20) 67 (10/29/20) Vascular Access Assessment: Type of access: Fistula Surgeon - [place] Staff and patient report access is working well. Impression and Plan Stable on dialysis, labs overall excellent, will make no changes today I will discuss with Urology a plan for management of urinary retention Darren Youssef MD [ Signed And locked electronically On 12/26/2020 at 10:55:17 AM ] Transcribed: Darren Youssef ( 12/26/2020 ) documented in this encounter Plan of Treatment Not on filedocumented as of this encounter Visit Diagnoses Not on filedocumented in this encounter
--- OUTSIDE RECORDS SUMMARY | 2022-04-17 14:31 | XMS_ITS | Encounter Summary ---
:1940 Author Organization [facility] Address [address] [place] [address] Care Team Providers Name Role Phone Unavailable Primary Care Provider Unavailable Encounter Details Date Type Department Care Team Description 09/17/2020 Orders Only [facility] Checo Jolly MD [address] [facility] [address] [place], [place] [phone] [place] [address] Social History Tobacco Use Types Packs/Day Years Used Date Smoking Tobacco: Never Assessed Sex Assigned at Date Recorded Not on file documented as of this encounter Plan of Treatment Not on filedocumented as of this encounter Procedures Procedure Name Priority Date/Time Associated Comments Diagnosis COVID-19 Routine 10/17/2020 11:00 AM Results for this CDT procedure are i n the results section. HCT CALC HGBX3 (HC) Routine 10/15/2020 11:00 AM R esults for this CDT procedure are i n the results section. HEMOGLOBIN Routine 10/15/2020 11:00 AM Results for this CDT procedure are i n the results section. WOJCIECH/PHOS W/RATI (HC) Routine 10/08/2020 11:00 AM Results for this CDT procedure are i n the results section. KT/V DAUGIRDAS (HC) Routine 10/08/2020 11:00 AM R esults for this CDT procedure are i n the results section. HCT CALC HGBX3 (HC) Routine 10/08/2020 11:00 AM R esults for this CDT procedure are i n the results section. HEMOGLOBIN Routine 10/08/2020 11:00 AM Results for this CDT procedure are i n the results section. PTH, INTACT Routine 10/08/2020 11:00 AM Results for this CDT procedure are i n the results section. KT/V DAUGIRDAS (HC) Routine 10/01/2020 11:00 AM CDT HCT CALC HGBX3 (HC) Routine 10/01/2020 11:00 AM R esults for this CDT procedure are i n the results section. CORRECTED CALCIUM Routine 10/01/2020 11:00 AM Res ults for this CDT procedure are i n the results section. HEMOGLOBIN Routine 10/01/2020 11:00 AM Results for this CDT procedure are i n the results section. CALCIUM Routine 10/01/2020 11:00 AM Results for this CDT procedure are i n the results section. HCV PANEL NONPROTOCL Routine 09/24/2020 11:00 AM Results for this (HC) CDT procedure are i n the results section. MONTHLY HD W/O CA/PH Routine 09/24/2020 11:00 AM Results for this (HC) CDT procedure are i n the results section. IRON PANEL (FE, Routine 09/24/2020 11:00 AM Resul ts for this TIBC, TSAT) CDT procedure are i n the results section. HEPATITIS B SURFACE Routine 09/24/2020 11:00 AM R esults for this ANTIGEN CDT procedure are i n the results section. ALT Routine 09/24/2020 11:00 AM Results for this CDT procedure are i n the results section. SODIUM Routine 09/24/2020 11:00 AM Results for this CDT procedure are i n the results section. HEMOGLOBIN A1C Routine 09/24/2020 11:00 AM Result s for this CDT procedure are i n the results section. GLUCOSE, RANDOM Routine 09/24/2020 11:00 AM Resul ts for this CDT procedure are i n the results section. FERRITIN Routine 09/24/2020 11:00 AM Results for this CDT procedure are i n the results section. CREATININE, SERUM Routine 09/24/2020 11:00 AM Res ults for this CDT procedure are i n the results section. HCV PANEL NONPROTOCL Routine 09/17/2020 11:00 AM Results for this (HC) CDT procedure are i n the results section. WOJCIECH/PHOS W/RATI (HC) Routine 09/17/2020 11:00 AM Results for this CDT procedure are i n the results section. KT/V DAUGIRDAS (HC) Routine 09/17/2020 11:00 AM R esults for this CDT procedure are i n the results section. MONTHLY HD W/O CA/PH Routine 09/17/2020 11:00 AM Results for this (HC) CDT procedure are i n the results section. IRON PANEL (FE, Routine 09/17/2020 11:00 AM Resul ts for this TIBC, TSAT) CDT procedure are i n the results section. HEPATITIS B CORE AB Routine 09/17/2020 11:00 AM R esults for this TOTAL CDT procedure are i n the results section. HEPATITIS B SURFACE Routine 09/17/2020 11:00 AM R esults for this ANTIBODY QUANT CDT procedure are in the results section. HEPATITIS B SURFACE Routine 09/17/2020 11:00 AM R esults for this ANTIGEN CDT procedure are i n the results section. ALT Routine 09/17/2020 11:00 AM Results for this CDT procedure are i n the results section. SODIUM Routine 09/17/2020 11:00 AM Results for this CDT procedure are i n the results section. PTH, INTACT Routine 09/17/2020 11:00 AM Results for this CDT procedure are i n the results section. HEMOGLOBIN A1C Routine 09/17/2020 11:00 AM Result s for this CDT procedure are i n the results section. GLUCOSE, RANDOM Routine 09/17/2020 11:00 AM Resul ts for this CDT procedure are i n the results section. FERRITIN Routine 09/17/2020 11:00 AM Results for this CDT procedure are i n the results section. CREATININE, SERUM Routine 09/17/2020 11:00 AM Res ults for this CDT procedure are i n the results section. documented in this encounter Results COVID-19 (10/17/2020 11:00 AM CDT) P athologist Signature Sars Covid 2 NEG APS DAVITA PCR [facility] Comment: [10-18-2020 20:37] ?? RESULTS: The speci men is NEGATIVE for SARS-CoV-2, the coronavirus associated with COVID-19. A negative result does not rule out the possibility of COVID-19 and should not b e used as the sole basis for patient management decisions. [10-18-2020 20:37] ?? Source: [place] REFERENCE RANGE: NEGATIVE Test performed on the G-modeo 5 PCR platform This test has been authorized by the FDA under an Emergency Use Authorization (EUA) for use by authorized laboratories . Please review the Fact Sheets for th e health care providers, and patients and the FDA authorized labeling availabl e on the ii4b website: https://intranet.DoseMe/Depts/Labs/P ages/default.aspx Specimen Anatomical Collection Method Collection Time Receive d Time (Source) Location / / Volume Laterality 10/17/2020 11:00 10/18/2020 8:49 AM CDT AM CDT Checo Sky MD LAB MICROBIOLOGY - GENERAL O RDERABLES Performing Organization Address City/State/ZIP Code Phon e Number ADIN RAYO [facility] (ABNORMAL) Hemoglobin (10/15/2020 11:00 AM CDT) P athologist Signature Hgb 10.2 (L) 14.0 - 18.0 APS DAVITA g/dL [facility] Specimen Anatomical Collection Method Collection Time Receive d Time (Source) Location / / Volume Laterality 10/15/2020 11:00 10/16/2020 AM CDT 10:30 PM CDT Checo Sky MD LAB BLOOD ORDERABLES Performing Organization Address City/[facility]/ZIP Code Phon e Number APS PERRI [facility] (ABNORMAL) HCT CALC HGBX3 (10/15/2020 11:00 AM CDT) Analysis Performed At Patho logist Time Signature Hemoglobin x 3 30.6 (L) 42.0 - APS DAVITA 52.0 % [facility] Specimen Anatomical Collection Method Collection Time Receive d Time (Source) Location / / Volume Laterality 10/15/2020 11:00 10/16/2020 AM CDT 10:30 PM CDT Checo Sky MD LAB [id number] NSOLICITED RESULTS Performing Organization Address City/State/ZIP Code Phon e Number APS PERRI [facility] (ABNORMAL) HCT CALC HGBX3 (10/08/2020 11:00 AM CDT) Analysis Performed At Patho logist Time Signature Hemoglobin x 3 32.1 (L) 42.0 - APS DAVITA 52.0 % [facility] Specimen Anatomical Collection Method Collection Time Receive d Time (Source) Location / / Volume Laterality 10/08/2020 11:00 10/11/2020 7:40 AM CDT PM CDT Checo Sky MD LAB [id number] NSOLICITED RESULTS Performing Organization Address City/State/ZIP Code Phon e Number ADIN RAYO [facility] (ABNORMAL) PTH, Intact (10/08/2020 11:00 AM CDT) P athologist Signature PTH 145 (H) 18 - 80 APS DAVITA pg/mL [facility] Comment: This test utilizes Biotin (Vitamin B7) a s one of it's reagents. Testing may be interfered with in patients consuming Bi otin supplements. Please factor this when reviewing results. METHODOLOGY: SIE MENS Reference range changed as of June 08, 2017. Specimen Anatomical Collection Method Collection Time Receive d Time (Source) Location / / Volume Laterality 10/08/2020 11:00 10/11/2020 7:40 AM CDT PM CDT Checo Sky MD LAB BLOOD ORDERABLES Performing Organization Address City/State/ZIP Code Phon e Number ADIN RAYO [facility] (ABNORMAL) Hemoglobin (10/08/2020 11:00 AM CDT) P athologist Signature Hgb 10.7 (L) 14.0 - 18.0 APS DAVITA g/dL [facility] Specimen Anatomical Collection Method Collection Time Receive d Time (Source) Location / / Volume Laterality 10/08/2020 11:00 10/11/2020 7:40 AM CDT PM CDT Checo Sky MD LAB BLOOD ORDERABLES Performing Organization Address City/State/ZIP Code Phon e Number APS DAVITA [facility] (ABNORMAL) KT/V DAUGIRDAS (10/08/2020 11:00 AM CDT) P athologist Signature BUN 72 (H) 9 - 23 APS DAVITA mg/dL [facility] BUN Post 20 9 - 23 APS DAVITA Dialysis mg/dL [facility] URR% 72 65 - 100 % APS DAVITA [facility] Specimen Anatomical Collection Method Collection Time Receive d Time (Source) Location / / Volume Laterality 10/08/2020 11:00 10/11/2020 7:40 AM CDT PM CDT Checo Sky MD LAB [id number] NSOLICITED RESULTS Performing Organization Address City/State/ZIP Code Phon e Number APS DAVITA [facility] WOJCIECH/PHOS W/RATI (10/08/2020 11:00 AM CDT) P athologist Signature Calcium 9.5 8.7 - 10.4 APS DAVITA mg/dL [facility] Phosphorus, 3.1 2.4 - 5.1 APS DAVITA Serum mg/dL [facility] CA/PHOS PRODUCT 29.5 21 - 53 APS DAVITA Calc [facility] Corrected 9.5 8.7 - 10.4 APS DAVITA Calcium mg/dL [facility] CA*PO4 CORRCTD 29.5 21 - 53 APS DAVITA Calc [facility] Specimen Anatomical Collection Method Collection Time Receive d Time (Source) Location / / Volume Laterality 10/08/2020 11:00 10/11/2020 7:40 AM CDT PM CDT Checo Sky MD LAB [id number] NSOLICITED RESULTS Performing Organization Address City/State/ZIP Code Phon e Number APS DAVITA [facility] Calcium (10/01/2020 11:00 AM CDT) P athologist Signature Calcium 9.1 8.7 - 10.4 APS DAVITA mg/dL [facility] Specimen Anatomical Collection Method Collection Time Receive d Time (Source) Location / / Volume Laterality 10/01/2020 11:00 10/02/2020 1:18 AM CDT PM CDT Checo Sky MD LAB BLOOD ORDERABLES Performing Organization Address City/State/ZIP Code Phon e Number APS DAVITA [facility] CORRECTED CALCIUM (10/01/2020 11:00 AM CDT) P athologist Signature Corrected 9.1 8.7 - 10.4 APS DAVITA Calcium mg/dL [facility] Specimen Anatomical Collection Method Collection Time Receive d Time (Source) Location / / Volume Laterality 10/01/2020 11:00 10/02/2020 1:18 AM CDT PM CDT Checo Sky MD LAB [id number] NSOLICITED RESULTS Performing Organization Address City/State/ZIP Code Phon e Number ADIN RAYO [facility] (ABNORMAL) HCT CALC HGBX3 (10/01/2020 11:00 AM CDT) Analysis Performed At Patho logist Time Signature Hemoglobin x 3 33.3 (L) 42.0 - APS DAVITA 52.0 % [facility] Specimen Anatomical Collection Method Collection Time Receive d Time (Source) Location / / Volume Laterality 10/01/2020 11:00 10/02/2020 1:18 AM CDT PM CDT Checo Sky MD LAB [id number] NSOLICITED RESULTS Performing Organization Address City/State/ZIP Code Phon e Number ADIN RAYO [facility] (ABNORMAL) Hemoglobin (10/01/2020 11:00 AM CDT) P athologist Signature Hgb 11.1 (L) 14.0 - 18.0 APS DAVITA g/dL [facility] Specimen Anatomical Collection Method Collection Time Receive d Time (Source) Location / / Volume Laterality 10/01/2020 11:00 10/02/2020 1:18 AM CDT PM CDT Checo Sky MD LAB BLOOD ORDERABLES Performing Organization Address City/State/ZIP Code Phon e Number ADIN RAYO [facility] KT/V DAUGIRDAS (10/01/2020 11:00 AM CDT) Specimen Anatomical Collection Method Collection Time Receive d Time (Source) Location / / Volume Laterality 10/01/2020 11:00 10/02/2020 1:18 AM CDT PM CDT Checo Sky MD LAB [id number] NSOLICITED RESULTS Performing Organization Address City/State/ZIP Code Phon e Number ADIN RAYO [facility] Hepatitis B Surface Antigen (09/24/2020 11:00 AM CDT) P athologist Signature Hep B Surface NEG -NEG APS DAVITA Antigen [facility] Comment: This test utilizes Biotin (Vitamin B7) a s one of it's reagents. Testing may be interfered with in patients consuming Bi otin supplements. Please factor this when reviewing results. Specimen Anatomical Collection Method Collection Time Receive d Time (Source) Location / / Volume Laterality 09/24/2020 11:00 09/25/2020 AM CDT 12:06 PM CDT Checo Sky MD LAB BLOOD ORDERABLES Performing Organization Address City/State/ZIP Code Phon e Number ADIN RAYO [facility] (ABNORMAL) Ferritin (09/24/2020 11:00 AM CDT) P athologist Signature Ferritin 386 (H) 22 - 322 APS DAVITA ng/mL [facility] Specimen Anatomical Collection Method Collection Time Receive d Time (Source) Location / / Volume Laterality 09/24/2020 11:00 09/25/2020 AM CDT 12:06 PM CDT Checo Sky MD LAB BLOOD ORDERABLES Performing Organization Address City/State/ZIP Code Phon e Number ADIN RAYO [facility] (ABNORMAL) Hemoglobin A1c (09/24/2020 11:00 AM CDT) P athologist Signature Hemoglobin A1C 5.8 (H) 0.0 - 5.6 APS DAVITA %A1c [facility] Specimen Anatomical Collection Method Collection Time Receive d Time (Source) Location / / Volume Laterality 09/24/2020 11:00 09/25/2020 AM CDT 12:06 PM CDT Checo Sky MD LAB BLOOD ORDERABLES Performing Organization Address City/State/ZIP Code Phon e Number ADIN RAYO [facility] ALT (09/24/2020 11:00 AM CDT) P athologist Signature ALT (SGPT) 12 10 - 49 U/L APS DAVITA [facility] Specimen Anatomical Collection Method Collection Time Receive d Time (Source) Location / / Volume Laterality 09/24/2020 11:00 09/25/2020 AM CDT 12:06 PM CDT Checo Sky MD LAB BLOOD ORDERABLES Performing Organization Address City/State/ZIP Code Phon e Number ADIN RAYO [facility] (ABNORMAL) Glucose, random (09/24/2020 11:00 AM CDT) P athologist Signature Glucose 194 (H) 70 - 99 APS DAVITA mg/dL [facility] Specimen Anatomical Collection Method Collection Time Receive d Time (Source) Location / / Volume Laterality 09/24/2020 11:00 09/25/2020 AM CDT 12:06 PM CDT Checo Sky MD LAB BLOOD ORDERABLES Performing Organization Address City/State/ZIP Code Phon e Number APS DAVITA [facility] (ABNORMAL) Creatinine, serum (09/24/2020 11:00 AM CDT) athologist Signature Creatinine 10.76 (H) 0.70 - APS DAVITA 1.30 mg/dL [facility] Specimen Anatomical Collection Method Collection Time Receive d Time (Source) Location / / Volume Laterality 09/24/2020 11:00 09/25/2020 AM CDT 12:06 PM CDT Checo Sky MD LAB BLOOD ORDERABLES Performing Organization Address City/[facility]/ZIP Code Phon e Number APS DAVITA [facility] Sodium (09/24/2020 11:00 AM CDT) athologist Signature Sodium 140 132 - 146 APS DAVITA mEq/L [facility] Specimen Anatomical Collection Method Collection Time Receive d Time (Source) Location / / Volume Laterality 09/24/2020 11:00 09/25/2020 AM CDT 12:06 PM CDT Chceo Sky MD LAB BLOOD ORDERABLES Performing Organization Address [facility] Code Phon e Number APS DAVITA [facility] HCV PANEL NONPROTOCL (09/24/2020 11:00 AM CDT) athologist Signature Hepatitis C 0.07 0.00 - APS DAVITA Antibody 0.79 [facility] Comment: INDEX VALUE INTERPRETATION/COMMENT: < 0.80 Nonreactive, No HCV Antibody dete cted - considered NEGATIVE. >=0.80 - <1.00 considered EQUIVOCAL. >=1.00 considered REACTIVE. This test utilizes Biotin (Vitamin B7) a s one of it's reagents. Testing may be interfered with in patients consuming Bi otin supplements. Please factor this when reviewing results. HCV RNA PCR Quantitative see comments Log IU/mL AP S DAVITA [facility] Comment: Canceled, testing not indicated . Specimen Anatomical Collection Method Collection Time Receive d Time (Source) Location / / Volume Laterality 09/24/2020 11:00 09/25/2020 AM CDT 12:06 PM CDT Checo Sky MD LAB [id number] NSOLICITED RESULTS Performing Organization Address City/State/ZIP Code Phon e Number APS DAVITA [facility] (ABNORMAL) Iron Panel (Fe, TIBC, TSAT) (09/24/2020 11:00 AM CDT) P athologist Signature TIBC 232 (L) 250 - 425 APS DAVITA ug/dL [facility] Iron Saturation 20 (L) 21 - 49 % APS DAVITA (TSat) [facility] Iron 47 (L) 65 - 175 APS DAVITA ug/dL [facility] UIBC 185 75 - 360 APS DAVITA ug/dL [facility] Specimen Anatomical Collection Method Collection Time Receive d Time (Source) Location / / Volume Laterality 09/24/2020 11:00 09/25/2020 AM CDT 12:06 PM CDT Checo Sky MD LAB BLOOD ORDERABLES Performing Organization Address City/State/ZIP Code Phon e Number APS DAVITA [facility] (ABNORMAL) MONTHLY HD W/O CA/PH (09/24/2020 11:00 AM CDT) Patholo gist Method Time Signature Potassium 4.1 3.5 - 5.5 APS DAVITA mEq/L [facility] Chloride 104 99 - 109 APS DAVITA mEq/L [facility] Bicarbonate 21 20 - 31 APS DAVITA (CO2) mEq/L [facility] Protein, Total 7.2 5.7 - 8.2 APS DAVITA g/dL [facility] Albumin 4.2 3.2 - 4.8 APS DAVITA g/dL [facility] Globulin 3.0 0.9 - 5 APS DAVITA g/dL [facility] A/G Ratio 1.4 1 - 2.5 APS DAVITA Calc [facility] AST (SGOT) 18 0 - 34 APS DAVITA U/L [facility] LDH 149 120 - 246 APS DAVITA U/L [facility] Alkaline 87 46 - 116 APS DAVITA Phosphatase U/L [facility] WBC 7.3 4.5 - APS DAVITA 11.0 x [facility] 10'3 cells/uL RBC 3.53 (L) 4.60 - APS DAVITA 6.20 x [facility] 10'6 cells/uL Hgb 10.9 (L) 14.0 - APS DAVITA 18.0 g/dL [facility] Hematocrit 34.7 (L) 42.0 - APS DAVITA 52.0 % [facility] Hemoglobin x 3 32.7 (L) 42.0 - APS DAVITA 52.0 % [facility] MCV 98.4 80.0 - APS DAVITA 100.0 fL [facility] MCH 30.8 27.0 - APS DAVITA 31.0 pg [facility] MCHC 31.3 (L) 32.0 - APS DAVITA 36.0 g/dL [facility] RDW 16.6 (H) 11.0 - APS DAVITA 15.0 % [facility] Platelets 116 (L) 150 - 400 APS DAVITA x 10'3 [facility] cells/uL Neutrophils % 79.0 % APS DAVITA Auto [facility] Lymphocytes 12.4 % APS DAVITA Manual [facility] Monocytes Manual 6.5 % APS DAVITA [facility] Eosinophil % 1.8 % APS DAVITA [facility] Basophils 0.3 % APS DAVITA Relative [facility] Neutrophils 5,743.30 2,000 - APS DAVITA Absolute 8,800 [facility] Cell/uL Lymphocytes 901.48 (L) 1,100 - APS DAVITA Absolute 4,800 [facility] Cell/uL Monocytes 472.55 0 - 1,100 APS DAVITA Absolute Cell/uL [facility] Eosinophils 130.86 0 - 700 APS DAVITA Absolute Cell/uL [facility] Basophils 21.81 0 - 400 APS DAVITA Absolute Cell/uL [facility] Comment: NOTE: ??MCV may be falsely elevated in a ged samples (approximately 72 hours). Diff percentage results will continue to be reported but without reference ranges per CAP guidelines and will not b e flagged as normal or abnormal. Absolute concentrations of circulating W BC are the preferable method of reporting and will continue to be evalua fareed against established reference ranges. Specimen Anatomical Collection Method Collection Time Receive d Time (Source) Location / / Volume Laterality 09/24/2020 11:00 09/25/2020 AM CDT 12:06 PM CDT Checo Sky MD LAB [id number] NSOLICITED RESULTS Performing Organization Address City/State/ZIP Code Phon e Number APS DAVITA [facility] Hepatitis B Core Antibody, Total (09/17/2020 11:00 AM CDT) P athologist Signature HBc Total Ab, S NEG -NEG APS DAVITA [facility] Comment: This test utilizes Biotin (Vitamin B7) a s one of it's reagents. Testing may be interfered with in patients consuming Bi otin supplements. Please factor this when reviewing results. METHODOLOGY: SIE MENS [facility] Specimen Anatomical Collection Method Collection Time Receive d Time (Source) Location / / Volume Laterality 09/17/2020 11:00 09/20/2020 AM CDT 10:18 AM CDT Checo Sky MD LAB BLOOD ORDERABLES Performing Organization Address [facility] Code Phon e Number APS DAVITA [facility] Hepatitis B Surface Antibody (09/17/2020 11:00 AM CDT) P athologist Signature Hepatitis B 3 0 - 9 APS DAVITA Surface Ab mIU/mL [facility] Comment: LESS THAN 10 NON-IMMUNE Specimen Anatomical Collection Method Collection Time Receive d Time (Source) Location / / Volume Laterality 09/17/2020 11:00 09/20/2020 AM CDT 10:18 AM CDT Checo Sky MD LAB BLOOD ORDERABLES Performing Organization Address [facility] Phon e Number APS DAVITA [facility] Hepatitis B Surface Antigen (09/17/2020 11:00 AM CDT) athologist Signature Hep B Surface NEG -NEG APS DAVITA Antigen [facility] Comment: This test utilizes Biotin (Vitamin B7) a s one of it's reagents. Testing may be interfered with in patients consuming Bi otin supplements. Please factor this when reviewing results. Specimen Anatomical Collection Method Collection Time Receive d Time (Source) Location / / Volume Laterality 09/17/2020 11:00 09/20/2020 AM CDT 10:18 AM CDT Checo Sky MD LAB BLOOD ORDERABLES Performing Organization Address City/[facility] Code Phon e Number APS DAVITA [facility] (ABNORMAL) PTH, Intact (09/17/2020 11:00 AM CDT) P athologist Signature PTH 432 (H) 18 - 80 APS DAVITA pg/mL [facility] Comment: This test utilizes Biotin (Vitamin B7) a s one of it's reagents. Testing may be interfered with in patients consuming Bi otin supplements. Please factor this when reviewing results. METHODOLOGY: SIE MENS Reference range changed as of June 08, 2017. Specimen Anatomical Collection Method Collection Time Receive d Time (Source) Location / / Volume Laterality 09/17/2020 11:00 09/20/2020 AM CDT 10:18 AM CDT Checo Sky MD LAB BLOOD ORDERABLES Performing Organization Address City/State/ZIP Code Phon e Number APS DAVITA [facility] (ABNORMAL) Ferritin (09/17/2020 11:00 AM CDT) P athologist Signature Ferritin 355 (H) 22 - 322 APS DAVITA ng/mL [facility] Specimen Anatomical Collection Method Collection Time Receive d Time (Source) Location / / Volume Laterality 09/17/2020 11:00 09/20/2020 AM CDT 10:18 AM CDT Checo Sky MD LAB BLOOD ORDERABLES Performing Organization Address City/[facility]/ZIP Code Phon e Number APS DAVITA [facility] (ABNORMAL) Hemoglobin A1c (09/17/2020 11:00 AM CDT) athologist Signature Hemoglobin A1C 5.8 (H) 0.0 - 5.6 APS DAVITA %A1c [facility] Specimen Anatomical Collection Method Collection Time Receive d Time (Source) Location / / Volume Laterality 09/17/2020 11:00 09/20/2020 AM CDT 10:18 AM CDT Checo Sky MD LAB BLOOD ORDERABLES Performing Organization Address City/[facility]/ZIP Code Phon e Number APS DAVITA [facility] ALT (09/17/2020 11:00 AM CDT) P athologist Signature ALT (SGPT) 15 10 - 49 U/L APS DAVITA [facility] Specimen Anatomical Collection Method Collection Time Receive d Time (Source) Location / / Volume Laterality 09/17/2020 11:00 09/20/2020 AM CDT 10:18 AM CDT Checo Sky MD LAB BLOOD ORDERABLES Performing Organization Address City/State/ZIP Code Phon e Number APS DAVITA [facility] (ABNORMAL) Glucose, random (09/17/2020 11:00 AM CDT) P athologist Signature Glucose 222 (H) 70 - 99 APS DAVITA mg/dL [facility] Specimen Anatomical Collection Method Collection Time Receive d Time (Source) Location / / Volume Laterality 09/17/2020 11:00 09/20/2020 AM CDT 10:18 AM CDT Checo Sky MD LAB BLOOD ORDERABLES Performing Organization Address [facility] Phon e Number APS DAVITA [facility] (ABNORMAL) Creatinine, serum (09/17/2020 11:00 AM CDT) P athologist Signature Creatinine 10.43 (H) 0.70 - APS DAVITA 1.30 mg/dL [facility] Specimen Anatomical Collection Method Collection Time Receive d Time (Source) Location / / Volume Laterality 09/17/2020 11:00 09/20/2020 AM CDT 10:18 AM CDT Checo Sky MD LAB BLOOD ORDERABLES Performing Organization Address [facility] Code Phon e Number APS DAVITA [facility] Sodium (09/17/2020 11:00 AM CDT) athologist Signature Sodium 141 132 - 146 APS DAVITA mEq/L [facility] Specimen Anatomical Collection Method Collection Time Receive d Time (Source) Location / / Volume Laterality 09/17/2020 11:00 09/20/2020 AM CDT 10:18 AM CDT Checo Sky MD LAB BLOOD ORDERABLES Performing Organization Address [facility] Phon e Number APS DAVITA [facility] HCV PANEL NONPROTOCL (09/17/2020 11:00 AM CDT) athologist Signature Hepatitis C 0.11 0.00 - APS DAVITA Antibody 0.79 [facility] Comment: INDEX VALUE INTERPRETATION/COMMENT: < 0.80 Nonreactive, No HCV Antibody dete cted - considered NEGATIVE. >=0.80 - <1.00 considered EQUIVOCAL. >=1.00 considered REACTIVE. This test utilizes Biotin (Vitamin B7) a s one of it's reagents. Testing may be interfered with in patients consuming Bi otin supplements. Please factor this when reviewing results. HCV RNA PCR Quantitative see comments Log IU/mL AP S DAVITA [facility] Comment: Canceled, testing not indicated . Specimen Anatomical Collection Method Collection Time Receive d Time (Source) Location / / Volume Laterality 09/17/2020 11:00 09/20/2020 AM CDT 10:18 AM CDT Checo Sky MD LAB [id number] NSOLICITED RESULTS Performing Organization Address City/State/ZIP Code Phon e Number [facility] (ABNORMAL) KT/V DAUGIRDAS (09/17/2020 11:00 AM CDT) P athologist Signature BUN 92 (H) 9 - 23 [facility] mg/dL [facility] BUN Post 26 (H) 9 - 23 [facility] Dialysis mg/dL [facility] URR% 72 65 - 100 % [facility] Specimen Anatomical Collection Method Collection Time Receive d Time (Source) Location / / Volume Laterality 09/17/2020 11:00 09/20/2020 AM CDT 10:18 AM CDT Checo Sky MD LAB [id number] NSOLICITED RESULTS Performing Organization Address City/[facility]/ZIP Code Phon e Number [facility] (ABNORMAL) WOJCIECH/PHOS W/RATI (09/17/2020 11:00 AM CDT) athologist Signature Calcium 8.6 (L) 8.7 - 10.4 [facility] mg/dL [facility] Phosphorus, 4.4 2.4 - 5.1 [facility] Serum mg/dL [facility] CA/PHOS 37.8 21 - 53 [facility] PRODUCT Calc [facility] Corrected 8.6 (L) 8.7 - 10.4 [facility] Calcium mg/dL [facility] CA*PO4 CORRCTD 37.8 21 - 53 [facility] Calc [facility] Specimen Anatomical Collection Method Collection Time Receive d Time (Source) Location / / Volume Laterality 09/17/2020 11:00 09/20/2020 AM CDT 10:18 AM CDT Checo Sky MD LAB [id number] NSOLICITED RESULTS Performing Organization Address City/State/ZIP Code Phon e Number [facility] (ABNORMAL) Iron Panel (Fe, TIBC, TSAT) (09/17/2020 11:00 AM CDT) P athologist Signature Iron 86 65 - 175 [facility] ug/dL [facility] TIBC 243 (L) 250 - 425 [facility] ug/dL [facility] UIBC 157 75 - 360 [facility] ug/dL [facility] Iron Saturation 35 21 - 49 % [facility] (TSat) [facility] Specimen Anatomical Collection Method Collection Time Receive d Time (Source) Location / / Volume Laterality 09/17/2020 11:00 09/20/2020 AM CDT 10:18 AM CDT Checo Sky MD LAB BLOOD ORDERABLES Performing Organization Address City/State/ZIP Code Phon e Number [facility] (ABNORMAL) MONTHLY HD W/O CA/PH (09/17/2020 11:00 AM CDT) Patholo gist Method Time Signature Potassium 3.9 3.5 - 5.5 [facility] mEq/L [facility] Chloride 101 99 - 109 [facility] mEq/L [facility] Bicarbonate 22 20 - 31 [facility] (CO2) mEq/L [facility] Protein, Total 7.0 5.7 - 8.2 [facility] g/dL [facility] Albumin 4.2 3.2 - 4.8 [facility] g/dL [facility] AST (SGOT) 22 0 - 34 [facility] U/L [facility] LDH 170 120 - 246 [facility] U/L [facility] Alkaline 89 46 - 116 [facility] Phosphatase U/L [facility] WBC 6.3 4.5 - [facility] 11.0 x [facility] 10'3 cells/uL RBC 3.70 (L) 4.60 - [facility] 6.20 x [facility] 10'6 cells/uL Hgb 11.7 (L) 14.0 - [facility] 18.0 g/dL [facility] Hematocrit 36.7 (L) 42.0 - [facility] 52.0 % [facility] MCV 99.2 80.0 - [facility]PS [facility] 100.0 fL [facility] MCH 31.6 (H) 27.0 - [facility] 31.0 pg [facility] MCHC 31.9 (L) 32.0 - [facility]PS [facility] 36.0 g/dL [facility] RDW 16.2 (H) 11.0 - APS [facility] 15.0 % [facility] Platelets 120 (L) 150 - 400 APS [facility] x 10'3 [facility] cells/uL Neutrophils % 74.5 % [facility] Auto [facility] Lymphocytes 14.4 % [facility] Manual [facility] Monocytes Manual 7.9 % [facility] Eosinophil % 2.4 % [facility] Basophils 0.8 % [facility] Relative [facility] Neutrophils 4,693.50 2,000 - A[facility] Absolute 8,800 [facility] Cell/uL Lymphocytes 907.20 (L) 1,100 - [facility] Absolute 4,800 [facility] Cell/uL Monocytes 497.70 0 - 1,100 A[facility] Absolute Cell/uL [facility] Eosinophils 151.20 0 - 700 A[facility] Absolute Cell/uL [facility] Basophils 50.40 0 - 400 A[facility] Absolute Cell/uL [facility] Comment: NOTE: ??MCV may be falsely elevated in a ged samples (approximately 72 hours). Diff percentage results will continue to be reported but without reference ranges per CAP guidelines and will not b e flagged as normal or abnormal. Absolute concentrations of circulating W BC are the preferable method of reporting and will continue to be evalua fareed against established reference ranges. Globulin 2.8 0.9 - 5 g/dL [facility] A/G Ratio 1.5 1 - 2.5 Calc [facility] Hemoglobin x 3 35.1 (L) 42.0 - 52.0 % [facility] Specimen Anatomical Collection Method Collection Time Receive d Time (Source) Location / / Volume Laterality 09/17/2020 11:00 09/20/2020 AM CDT 10:18 AM CDT Checo Sky MD LAB [id number] NSOLICITED RESULTS Performing Organization Address City/State/ZIP Code Phon e Number APS [facility] documented in this encounter Visit Diagnoses Not on filedocumented in this encounter
--- OUTSIDE RECORDS SUMMARY | 2022-04-17 14:31 | XMS_ITS | Encounter Summary ---
:1940 Author Organization [facility] Address [address] [place] [address] Care Team Providers Name Role Phone Unavailable Primary Care Provider Unavailable Encounter Details Date Type Department Care Team Description 11/21/2020 Orders Only [facility] f Darren Escalante MD [phone] [place] [address] [place], [place] [phone] (Wo rk) Social History Tobacco Use Types Packs/Day Years Used Date Smoking Tobacco: Never Assessed Sex Assigned at Date Recorded Not on file documented as of this encounter Plan of Treatment Not on filedocumented as of this encounter Procedures Procedure Name Priority Date/Time Associated Diagnosis Comme nts HEMATOLOGY Routine 11/21/2020 Results for thi s procedure are in the resu lts section. documented in this encounter Results (ABNORMAL) HEMATOLOGY (11/21/2020) Analysis Performed At Patho logist Time Signature Hemoglobin 7.8 (L) 14.0 - APS SPECTRA 18.0 g/dL [facility] Hemoglobin x 3 23.4 (L) 42.0 - APS SPECTRA 54.0 % [facility] Specimen (Source) Anatomical Collection Method Collection Time Re ceived Time Location / / Volume Laterality 11/21/2020 11/22/2020 6:03 PM CDT Narrative APS S[facility] - 11/23/2020 Unless otherwise specified, test(s) performed at: [facility], [address] [place] [id number] JOINER APPRENTICE: Jacob Junior M.D. For any questions, please call customer service at FREQUENCY:OTHER Resulting Agency Comment Specimen source: Blood Darren Youssef MD LAB BLOOD ORDERABLES Performing Organization Address City/State/ZIP Code Phon e Number APS [facility] documented in this encounter Visit Diagnoses Not on filedocumented in this encounter
--- OUTSIDE RECORDS SUMMARY | 2022-04-17 14:31 | XMS_ITS | Encounter Summary ---
:1940 Author Organization [facility] Address [address] [place] [address] Care Team Providers Name Role Phone Unavailable Primary Care Provider Unavailable Encounter Details Date Type Department Care Team Description 07/24/2020 Telephone [facility] Nehal Steve, RN [address] [place] [address] [address] [place] [address] (Wo rk) Social History Tobacco Use Types Packs/Day Years Used Date Smoking Tobacco: Never Assessed Sex Assigned at Date Recorded Not on file documented as of this encounter Miscellaneous Notes Telephone Encounter - Nehal Meredith RN - 07/24/2020 9:39 AM CST Call received from [facility] to speak with Dr. Sky regarding dialysis. Page sent to Dr. Sky to call [phone]. documented in this encounter Plan of Treatment Not on filedocumented as of this encounter Visit Diagnoses Not on filedocumented in this encounter
--- OUTSIDE RECORDS SUMMARY | 2022-04-17 14:31 | XMS_ITS | Encounter Summary ---
:1940 Author Organization [facility] Address [address] [place] [address] Care Team Providers Name Role Phone Unavailable Primary Care Provider Unavailable Encounter Details Date Type Department Care Team Description 12/14/2020 Orders Only [facility] f Darren Escalante MD [phone] [place] [address] [place], [place] [phone] (Wo rk) Social History Tobacco Use Types Packs/Day Years Used Date Smoking Tobacco: Never Assessed Sex Assigned at Date Recorded Not on file documented as of this encounter Plan of Treatment Not on filedocumented as of this encounter Procedures Procedure Name Priority Date/Time Associated Diagnosis Comme nts HEMATOLOGY Routine 12/14/2020 Results for thi s procedure are in the resu lts section. documented in this encounter Results (ABNORMAL) HEMATOLOGY (12/14/2020) Patholo gist Method Time Signature Reticulocyte 32.6 (H) 25.4 - APS SPECTRA Hemoglobin 31.8 pg [facility] Specimen (Source) Anatomical Collection Method Collection Time Re ceived Time Location / / Volume Laterality 12/14/2020 12/15/2020 10:3 6 AM CDT Narrative [facility]PS SPECTRA [facility] - 12/15/2020 Unless otherwise specified, test(s) performed at: [facility], [address] [place] [id number] MOLD TECHNICIAN: Jacob Junior M.D. For any questions, please call customer service at FREQUENCY:OTHER Resulting Agency Comment Specimen source: Blood Darren Youssef MD LAB BLOOD ORDERABLES Performing Organization Address City/State/ZIP Code Phon e Number [facility]PS [facility] documented in this encounter Visit Diagnoses Not on filedocumented in this encounter
--- OUTSIDE RECORDS SUMMARY | 2022-04-17 14:31 | XMS_ITS | Encounter Summary ---
:1940 Author Organization [facility] Address [address] [place] [address] Care Team Providers Name Role Phone Unavailable Primary Care Provider Unavailable Encounter Details Date Type Department Care Team Description 10/31/2020 Orders Only [facility] f Darren Escalante MD [phone] [place] [address] [place], [place] [phone] (Wo rk) Social History Tobacco Use Types Packs/Day Years Used Date Smoking Tobacco: Never Assessed Sex Assigned at Date Recorded Not on file documented as of this encounter Plan of Treatment Not on filedocumented as of this encounter Procedures Procedure Name Priority Date/Time Associated Diagnosis Comme nts HEMATOLOGY Routine 10/31/2020 Results for thi s procedure are in the resu lts section. documented in this encounter Results (ABNORMAL) HEMATOLOGY (10/31/2020) Analysis Performed At Patho logist Time Signature Hemoglobin 9.1 (L) 14.0 - APS SPECTRA 18.0 g/dL [facility] Hemoglobin x 3 27.3 (L) 42.0 - APS SPECTRA 54.0 % [facility] Specimen (Source) Anatomical Collection Method Collection Time Re ceived Time Location / / Volume Laterality 10/31/2020 11/01/2020 1:34 PM CDT Narrative APS SPECTRA [facility] - 11/01/2020 Unless otherwise specified, test(s) performed at: [facility], [address] [place] [id number] SLICING MACHINE TENDER: Jacob Junior M.D. For any questions, please call customer service at FREQUENCY:OTHER Resulting Agency Comment Specimen source: Blood Darren Youssef MD LAB BLOOD ORDERABLES Performing Organization Address City/State/ZIP Code Phon e Number [facility]PS [facility] documented in this encounter Visit Diagnoses Not on filedocumented in this encounter
--- OUTSIDE RECORDS SUMMARY | 2022-04-17 14:31 | XMS_ITS | Encounter Summary ---
:1940 Author Organization [facility] Address [address] [place] [address] Care Team Providers Name Role Phone Unavailable Primary Care Provider Unavailable Encounter Details Date Type Department Care Team Description 11/28/2020 Treatment [facility] Darren Singh MD [address] [place], [place] [phone] (Wo rk) Social History Tobacco Use Types Packs/Day Years Used Date Smoking Tobacco: Never Assessed Sex Assigned at Date Recorded Not on file documented as of this encounter Miscellaneous Notes Dialysis Note - Darren Youssef MD - 11/28/2020 10:18 AM CDT Date: Nov 28, 2020 Patient Name: Korey Mackay : 1940 Chart #: [id number] Sex: M This patient was personally seen for a basic visit as part of routine weekly dialysis care. A reviewof the dialysis treatment, blood pressure, estimated dry weight and recent lab values was made. These were discussed with the patient and staff as necessary. Treatment Data for 11/28/2020 started at:9:53 AM Dialyzer: 180NRe Optiflux Na: 137 mEq/L Bicarb: 35 mEq/L Dialysate: 2.0 K, 2.25 Ca, 1.0 Mg, 100 Dextrose (G2231) Dialysate/Machine Temp (prescribed): 37 C Dialysate/Machine Temp (actual): 37 C BFR (prescribed): 500 BFR (actual): n/a Prescribed time: 03:30 EDW: 102.5 kg Access Type: Active (In Use):AVFistula-Standard/Left Forearm Pre Dialysis Vitals (for 11/28/2020 9:48 AM ) Pre BP (sit): 136/70 Pre Wt: 106.6 kg Temp: 97.3 F Post Dialysis Vitals (for 11/26/2020 1:27 PM ) Post BP (sit): 129/57 Post Wt: 103.4 kg Chairside data as of 11/28/2020 9:48 AM Last 3 Treatments 11/26/2020 11/23/2020 11/21/2020 EDW (kg) 102.5 102.5 102.5 Weight Pre (kg) 106.7 105.1 105 Weight Post (kg) 103.4 102.2 102.6 Dialytic Weight Loss (kg) -3.3 -2.9 -2.4 EDW Deviation (kg) 0.9 -0.3 0.1 BP Sit Pre 125/57 109/51 104/46 BP Sit Post 129/57 122/59 103/53 UF Rate (mL/kg/hr) 9 8 7 Prescribed BFR 450 450 450 Average Delivered BFR 500 450 450 Prescribed Treatment Time 03:30 03:30 03:30 Actual Treatment Time 03:31 03:31 03:29 Last 2 Values 11/12/2020 11/09/2020 Access Flow 1086 1238 Treatment Medication Orders Medication Sig Start Date End Date Heparin Sodium (Porcine) 1,000 Units/mL Systemic 2000 units IVP Every Treatment 11/16/2020 11/15/2021 Mircera 75 mcg IVP Every 2 weeks During Dialysis 11/21/2020 11/20/2021 CRACKER OFF: Darren Youssef MD LOCATION: [phone] SCHEDULE: -W- 2nd Shift ACCESS: EDW: kg. DIALYZER: HD DURATION: NEEDLE SIZE: ANTICOAG: BATH: QB: ml/min QD: ml/min Subjective Tolerating dialysis well. 11/28: Doing well, no issues here with dialysis or his access and feels things are much smoother herethan previous unit. He has no concerns. He has becerril catheter until follow-up next month with Urology in [place]. Still with hematuria but low UOP he reports (70 mL this am from overnight). Hgb slow to improve in setting of infection. 11/07/20: Notes below from Dr. Sky. I am meeting patient today for first time. He transferred from [facility] - he was unhappy with staff there [...] No sob eating well. Will go to [place] soon for the winter. 04/30/20. Pt feels well, denies sob, eating wlll, no new complaints. He decided against urology onsult for his gross hematuria. going to [place] on Thursday. Will show up there Thursday. 09/24/20 No new complaints at this time, Just back from [place]. 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 He now has two homes, one in [place] and one in [place]. He and his winter in [place]. They have one daughter that lives in [place], [place] and they have one son (who's [...] take with largest meal Dialyvite (b complex 23-gziio-y-biot-zinc) [phone] bj-fm-ikb-mg tablet Take 1 tablet by mouth once [...] no changes were made. BUN mg/dL 45 (11/07/20) 61 (10/29/20) UREA NITROGEN (MG/DL) IN SER/PLAS - POST DIALYSIS mg/dL 14 (11/07/20) 18 (10/29/20) URR % 69 (11/07/20) 70 (10/29/20) spKt/V Gotch 1.38 (11/07/20) eKdrt/V 1.17 (11/07/20) spKt/V (Daugirdas II) 1.3600 (11/07/20) 1.3700 (10/29/20) BUN mg/dL 72 (10/08/20) 92 (09/17/20) 72 (04/09/20) 61 (03/12/20) 60 (02/15/20) CREATININE (MG/DL) IN SER/PLAS mg/dL 9.92 (10/22/20) 10.76 (09/24/20) 10.43 (09/17/20) 10.04 (04/23/20) 10.10 (03/26/20) URR% % 72 (10/08/20) 72 (09/17/20) 72 (04/09/20) 74 (03/12/20) 73 (02/15/20) HEMOGLOBIN (G/DL) IN BLOOD g/dL 7.8 (11/21/20) 8.2 (11/14/20) 8.5 (11/07/20) 9.1 (10/31/20) 9.9 (10/29/20) PLATELETS 1000/mcL 146 (11/07/20) 109 (10/29/20) IRON SATURATION % 60 (11/07/20) 22 (10/29/20) FERRITIN ng/mL 684 (10/29/20) WBC (BLOOD) x 103 cells/uL [...] 687 (04/23/20) 705 (03/26/20) ALBUMIN (G/DL) g/dL 3.4 (11/07/20) 3.7 (10/29/20) Sodium mEq/L 141 (11/07/20) 137 (10/29/20) POTASSIUM (MMOL/L) IN SER/PLAS mEq/L 4.5 (11/07/20) 4.9 (10/29/20) BICARBONATE (CO2) mEq/L 24 (11/07/20) 22 (10/29/20) 25 OH VITAMIN D ng/mL 62.5 (10/29/20) ALBUMIN (G/DL) g/dL 4.1 (10/22/20) [...] pg/mL 145 (10/08/20) 432 (09/17/20) 202 (03/12/20) 238 (12/12/19) BUN/CREATININE (MASS RATIO) IN SER/PLAS 4.8 (11/07/20) 6.3 (10/29/20) CALCIUM mg/dL 10.4 (10/22/20) 9.5 (10/08/20) 9.1 (10/01/20) 8.6 (09/17/20) 8.9 (04/09/20) CA/PHOS PRODUCT Calc 29.5 (10/08/20) 37.8 (09/17/20) 38.3 (04/09/20) 33.3 (03/12/20) 39.6 (02/10/20) CORRECTED CALCIUM mg/dL 10.4 (10/22/20) 9.5 (10/08/20) 9.1 (10/01/20) 8.6 (09/17/20) 9.0 (04/09/20) PHOSPHORUS mg/dL 3.1 (10/08/20) 4.4 (09/17/20) 4.3 (04/09/20) 3.7 (03/12/20) 4.3 (02/10/20) IPTH pg/mL 145 (10/08/20) 432 (09/17/20) 202 (03/12/20) 238 (12/12/19) Calcium mg/dL 8.4 (11/07/20) 9.5 (10/29/20) Calcium Phos Product 34 (11/07/20) 20 (10/29/20) CALCIUM (MG/DL) CORRECTED FOR ALBUMIN IN SER/PLAS mg/dL 8.9 (11/07/20) 9.7 (10/29/20) PHOSPHATE (MG/DL) IN SER/PLAS mg/dL 4.1 (11/07/20) 2.1 (10/29/20) IPTH pg/mL 67 (10/29/20) Vascular Access Assessment: Type of access: Fistula Surgeon - [facility] Staff and patient report access is working well. Impression and Plan Stable on dialysis Monitor Hgb weekly, MISTY protocol, likely slow to respond given UTI and minor hematuria as well Increased BFR to 500 to get kt/v 1.4, will re-check Darren Youssef MD [ Signed And locked electronically On 11/28/2020 at 10:21:02 AM ] Transcribed: Darren Youssef ( 11/28/2020 ) documented in this encounter Plan of Treatment Not on filedocumented as of this encounter Visit Diagnoses Not on filedocumented in this encounter
--- OUTSIDE RECORDS SUMMARY | 2022-04-17 14:31 | XMS_ITS | Encounter Summary ---
:1940 Author Organization [facility] Address [address] [place] [address] Care Team Providers Name Role Phone Unavailable Primary Care Provider Unavailable Encounter Details Date Type Department Care Team Description 12/12/2020 Treatment [facility] Darren Singh MD [address] [place], [place] [phone] (Wo rk) Social History Tobacco Use Types Packs/Day Years Used Date Smoking Tobacco: Never Assessed Sex Assigned at Date Recorded Not on file documented as of this encounter Miscellaneous Notes Dialysis Note - Darren Youssef MD - 12/12/2020 10:43 AM CDT Date: Dec 12, 2020 Patient Name: Korey Mackay : 1940 Chart #: [id number] Sex: M This patient was personally seen for a complete visit as part of routine monthly dialysis care. A review of the dialysis treatment, blood pressure, estimated dry weight and recent lab values was made. These were discussed with the patient and staff as necessary. Treatment Data for 12/12/2020 started at:9:53 AM Dialyzer: 180NRe Optiflux Na: 137 mEq/L Bicarb: 35 mEq/L Dialysate: 2.0 K, 2.25 Ca, 1.0 Mg, 100 Dextrose (G2231) Dialysate/Machine Temp (prescribed): 37 C Dialysate/Machine Temp (actual): 37 C BFR (prescribed): 500 BFR (actual): 500 Prescribed time: 03:30 EDW: 102.5 kg Access Type: Active (In Use):AVFistula-Standard/Left Forearm Pre Dialysis Vitals (for 12/12/2020 9:51 AM ) Pre BP (sit): 108/72 Pre Wt: 105.6 kg Temp: 96.6 F Post Dialysis Vitals (for 12/10/2020 1:32 PM ) Post BP (sit): 125/57 Post Wt: 102.6 kg Current Dialysis Vitals (for 12/12/2020 10:31 AM ) BP (sit): 123/59 AP(-) / IN FLIGHT TECHNICIAN: 202/199 Pulse: 69 Chairside data as of 12/12/2020 10:31 AM Last 3 Treatments 12/10/2020 12/07/2020 12/05/2020 EDW (kg) 102.5 102.5 102.5 Weight Pre (kg) 106.8 105.1 107.4 Weight Post (kg) 102.6 102.6 103.6 Dialytic Weight Loss (kg) -4.2 -2.5 -3.8 EDW Deviation (kg) 0.1 0.1 1.1 BP Sit Pre 121/53 102/42 120/53 BP Sit Post 125/57 113/55 107/54 UF Rate (mL/kg/hr) 12 7 11 Prescribed BFR 500 500 500 Average Delivered BFR 510 480 510 Prescribed Treatment Time 03:30 03:30 03:30 Actual Treatment Time 03:32 03:31 03:30 Last 3 Values 12/07/2020 11/12/2020 11/09/2020 Access Flow 1182 1086 1238 Treatment Medication Orders Medication Sig Start Date End Date Heparin Sodium (Porcine) 1,000 Units/mL Systemic 2000 units IVP Every Treatment 11/16/2020 11/15/2021 Mircera 100 mcg IVP Every 2 weeks During Dialysis 12/05/2020 12/04/2021 PROPAGATION MANAGER: Darren Youssef MD LOCATION: [phone] SCHEDULE: -- 2nd Shift EDW: kg. DIALYZER: HD DURATION: NEEDLE SIZE: ANTICOAG: BATH: QB: ml/min QD: ml/min Subjective Tolerating dialysis well. 12/12/20: No new symptoms, tolerating HD well. Still has becerril bag, no blood in bag last few days, TOVplanned next week at Urology he says. 11/28: Doing well, no issues here with dialysis or his access and feels things are much smoother herethan previous unit. He has no concerns. He has becerril catheter until follow-up next month with Urology in [place]. Still with hematuria but low UOP he reports (70 mL this am from overnight). Hgb slow to improve in setting of infection. 11/07/20: Notes below from Dr. Sky. I am meeting patient today for first time. He transferred from [facility] - he was unhappy with staff [...] No sob eating well. Will go to [place] soon for the winter. 04/30/20. Pt feels well, denies sob, eating wlll, no new complaints. He decided against urology onsult for his gross hematuria. going to [place] on Thursday. Will show up there Thursday. 09/24/20 No new complaints at this time, Just back from [place]. 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 He now has two homes, one in [place] and one in [place]. He and his winter in [place]. They have one daughter that lives in [place], [place] and they have one son (who's [...] take with largest meal Dialyvite (b complex 35-findg-v-biot-zinc) [phone] qt-bm-gnh-mg tablet Take 1 tablet by mouth once [...] made. Treatment and Adequacy Assessment BUN mg/dL 42 (11/28/20) 45 (11/07/20) 61 (10/29/20) UREA NITROGEN (MG/DL) IN SER/PLAS - POST DIALYSIS mg/dL 13 (11/28/20) 14 (11/07/20) 18 (10/29/20) URR % 69 (11/28/20) 69 (11/07/20) 70 (10/29/20) spKt/V Gotch 1.39 (11/28/20) 1.38 (11/07/20) eKdrt/V 1.18 (11/28/20) 1.17 (11/07/20) spKt/V (Daugirdas II) 1.3700 (11/28/20) 1.3600 (11/07/20) 1.3700 (10/29/20) BUN [...] Assessment Type of access: Fistula Surgeon - [place] Staff and patient report access is working well. Anemia Assessment HEMOGLOBIN (G/DL) IN BLOOD g/dL 8.9 (12/05/20) 8.3 (11/28/20) 7.8 (11/21/20) 8.2 (11/14/20) 8.5 (11/07/20) PLATELETS 1000/mcL 146 (11/07/20) 109 (10/29/20) IRON [...] Nutritional and Metabolic Assessment ALBUMIN (G/DL) g/dL 3.4 (11/07/20) 3.7 (10/29/20) [...] and Mineral Metabolism Assessment Calcium mg/dL 8.4 (11/07/20) 9.5 (10/29/20) CALCIUM (MG/DL) CORRECTED FOR ALBUMIN IN SER/PLAS mg/dL 8.9 (11/07/20) 9.7 (10/29/20) PHOSPHATE (MG/DL) IN SER/PLAS mg/dL 4.1 (11/07/20) 2.1 (10/29/20) CALCIUM PHOSPHORUS PRODUCT, COR 36 (11/07/20) 20 (10/29/20) IPTH pg/mL 67 (10/29/20) CALCIUM mg/dL 10.4 (10/22/20) 9.5 [...] Phosphorous is at goal. Intact PTH is below goal. Electrician Control Equipment will adjust binders and vitamin D per protocol and continue to provide dietary education. Cardiovascular Assessment Blood pressures reviewed and are acceptable. Intradialytic weight gains are appropriate. Estimated dry weight is appropriate. Continue same cardiovascular medications. Transplant Status: Patient is not a candidate. Age >80 and co-morbidities Resuscitation Status Stable dialysis, no changes today Monthly labs being drawn today Darren Youssef MD [ Signed And locked electronically On 12/12/2020 at 10:44:54 AM ] Transcribed: Darren Youssef ( 12/12/2020 ) documented in this encounter Plan of Treatment Not on filedocumented as of this encounter Visit Diagnoses Not on filedocumented in this encounter
--- OUTSIDE RECORDS SUMMARY | 2022-04-17 14:31 | XMS_ITS | Encounter Summary ---
:1940 Author Organization [facility] Address [address] [place] [address] Care Team Providers Name Role Phone Unavailable Primary Care Provider Unavailable Encounter Details Date Type Department Care Team Description 10/22/2020 Orders Only [facility] f Checo Jolly MD [address] [facility] [address] [place], [place] [phone] [place] [address] Social History Tobacco Use Types Packs/Day Years Used Date Smoking Tobacco: Never Assessed Sex Assigned at Date Recorded Not on file documented as of this encounter Plan of Treatment Not on filedocumented as of this encounter Procedures Procedure Name Priority Date/Time Associated Diagnosis Comme nts COVID-19 Routine 10/24/2020 11:00 AM Results for this CDT procedure are i n the results section. MONTHLY HD W/O Routine 10/22/2020 11:00 AM Result s for this CA/PH (HC) CDT procedure are i n the results section. CORRECTED CALCIUM Routine 10/22/2020 11:00 AM Res ults for this CDT procedure are i n the results section. IRON PANEL (FE, Routine 10/22/2020 11:00 AM Resul ts for this TIBC, TSAT) CDT procedure are i n the results section. HEPATITIS B SURFACE Routine 10/22/2020 11:00 AM R esults for this ANTIGEN CDT procedure are i n the results section. ALT Routine 10/22/2020 11:00 AM Results for this CDT procedure are i n the results section. SODIUM Routine 10/22/2020 11:00 AM Results for this CDT procedure are i n the results section. GLUCOSE, RANDOM Routine 10/22/2020 11:00 AM Resul ts for this CDT procedure are i n the results section. FERRITIN Routine 10/22/2020 11:00 AM Results for this CDT procedure are i n the results section. CREATININE, SERUM Routine 10/22/2020 11:00 AM Res ults for this CDT procedure are i n the results section. CALCIUM Routine 10/22/2020 11:00 AM Results for this CDT procedure are i n the results section. documented in this encounter Results COVID-19 (10/24/2020 11:00 AM CDT) P athologist Signature Sars Covid 2 NEG APS JARRODITA PCR [facility] Comment: [10-25-2020 20:08] ?? RESULTS: The speci men is NEGATIVE for SARS-CoV-2, the coronavirus associated with COVID-19. A negative result does not rule out the possibility of COVID-19 and should not b e used as the sole basis for patient management decisions. [10-25-2020 20:08] ?? Source: [place] REFERENCE RANGE: NEGATIVE Test performed on the [employer] 5 PCR platform This test has been authorized by the FDA under an Emergency Use Authorization (EUA) for use by authorized laboratories . Please review the Fact Sheets for th e health care providers, and patients and the FDA authorized labeling availabl e on the [employer] website: https://intranet.Brigade/Depts/Labs/P ages/default.aspx Specimen Anatomical Collection Method Collection Time Receive d Time (Source) Location / / Volume Laterality 10/24/2020 11:00 10/25/2020 8:43 AM CDT AM CDT Checo Sky MD LAB MICROBIOLOGY - GENERAL O RDERABLES Performing Organization Address City/State/ZIP Code Phon e Number APS PERRI [facility] CORRECTED CALCIUM (10/22/2020 11:00 AM CDT) P athologist Signature Corrected 10.4 8.7 - 10.4 APS PERRI Calcium mg/dL [facility] Specimen Anatomical Collection Method Collection Time Receive d Time (Source) Location / / Volume Laterality 10/22/2020 11:00 10/23/2020 9:45 AM CDT AM CDT Checo Syk MD LAB [id number] NSOLICITED RESULTS Performing Organization Address City/State/ZIP Code Phon e Number APS DAVITA [facility] Hepatitis B Surface Antigen (10/22/2020 11:00 AM CDT) P athologist Signature Hep B Surface NEG -NEG APS DAVITA Antigen [facility] Comment: This test utilizes Biotin (Vitamin B7) a s one of it's reagents. Testing may be interfered with in patients consuming Bi otin supplements. Please factor this when reviewing results. Specimen Anatomical Collection Method Collection Time Receive d Time (Source) Location / / Volume Laterality 10/22/2020 11:00 10/23/2020 9:45 AM CDT AM CDT Checo Sky MD LAB BLOOD ORDERABLES Performing Organization Address City/[facility]/ZIP Code Phon e Number APS DAVITA [facility] (ABNORMAL) Ferritin (10/22/2020 11:00 AM CDT) athologist Signature Ferritin 650 (H) 22 - 322 APS DAVITA ng/mL [facility] Specimen Anatomical Collection Method Collection Time Receive d Time (Source) Location / / Volume Laterality 10/22/2020 11:00 10/23/2020 9:45 AM CDT AM CDT Checo Sky MD LAB BLOOD ORDERABLES Performing Organization Address City/[facility]/ZIP Code Phon e Number APS DAVITA [facility] ALT (10/22/2020 11:00 AM CDT) P athologist Signature ALT (SGPT) 20 10 - 49 U/L APS DAVITA [facility] Specimen Anatomical Collection Method Collection Time Receive d Time (Source) Location / / Volume Laterality 10/22/2020 11:00 10/23/2020 9:45 AM CDT AM CDT Checo Sky MD LAB BLOOD ORDERABLES Performing Organization Address City/[facility]/ZIP Code Phon e Number APS DAVITA [facility] Calcium (10/22/2020 11:00 AM CDT) P athologist Signature Calcium 10.4 8.7 - 10.4 APS DAVITA mg/dL [facility] Specimen Anatomical Collection Method Collection Time Receive d Time (Source) Location / / Volume Laterality 10/22/2020 11:00 10/23/2020 9:45 AM CDT AM CDT Checo Sky MD LAB BLOOD ORDERABLES Performing Organization Address City/State/ZIP Code Phon e Number APS DAVIRENE [facility] (ABNORMAL) Glucose, random (10/22/2020 11:00 AM CDT) P athologist Signature Glucose 126 (H) 70 - 99 APS DAVITA mg/dL [facility] Specimen Anatomical Collection Method Collection Time Receive d Time (Source) Location / / Volume Laterality 10/22/2020 11:00 10/23/2020 9:45 AM CDT AM CDT Checo Sky MD LAB BLOOD ORDERABLES Performing Organization Address City/[facility]/ZIP Code Phon e Number APS PERRI [facility] (ABNORMAL) Creatinine, serum (10/22/2020 11:00 AM CDT) P athologist Signature Creatinine 9.92 (H) 0.70 - 1.30 APS DAVITA mg/dL [facility] Specimen Anatomical Collection Method Collection Time Receive d Time (Source) Location / / Volume Laterality 10/22/2020 11:00 10/23/2020 9:45 AM CDT AM CDT Checo Sky MD LAB BLOOD ORDERABLES Performing Organization Address City/[facility]/ZIP Code Phon e Number APS DAVITA [facility] Sodium (10/22/2020 11:00 AM CDT) P athologist Signature Sodium 141 132 - 146 APS DAVITA mEq/L [facility] Specimen Anatomical Collection Method Collection Time Receive d Time (Source) Location / / Volume Laterality 10/22/2020 11:00 10/23/2020 9:45 AM CDT AM CDT Checo Sky MD LAB BLOOD ORDERABLES Performing Organization Address City/[facility]/ZIP Code Phon e Number APS DAVITA [facility] (ABNORMAL) Iron Panel (Fe, TIBC, TSAT) (10/22/2020 11:00 AM CDT) P athologist Signature Iron 118 65 - 175 APS DAVITA ug/dL [facility] TIBC 237 (L) 250 - 425 APS DAVITA ug/dL [facility] UIBC 119 75 - 360 APS DAVITA ug/dL [facility] Iron Saturation 50 (H) 21 - 49 % APS DAVITA (TSat) [facility] Specimen Anatomical Collection Method Collection Time Receive d Time (Source) Location / / Volume Laterality 10/22/2020 11:00 10/23/2020 9:45 AM CDT AM CDT Checo Sky MD LAB BLOOD ORDERABLES Performing Organization Address City/State/ZIP Code Phon e Number APS DAVITA [facility] (ABNORMAL) MONTHLY HD W/O CA/PH (10/22/2020 11:00 AM CDT) [facility] gist Method Time Signature Potassium 4.7 3.5 - 5.5 APS DAVITA mEq/L [facility] Chloride 105 99 - 109 APS DAVITA mEq/L [facility] Bicarbonate 24 20 - 31 APS DAVITA (CO2) mEq/L [facility] Protein, Total 7.3 5.7 - 8.2 APS DAVITA g/dL [facility] Albumin 4.1 3.2 - 4.8 APS DAVITA g/dL [facility] AST (SGOT) 21 0 - 34 APS DAV[facility] U/L [facility] LDH 135 120 - 246 APS DAVITA U/L [facility] Alkaline 110 46 - 116 APS DAV[facility] Phosphatase U/L [facility] WBC 6.3 4.5 - APS DAVITA 11.0 x [facility] 10'3 cells/uL RBC 3.11 (L) 4.60 - APS DAVITA 6.20 x [facility] 10'6 cells/uL Hgb 9.9 (L) 14.0 - APS DAVITA 18.0 g/dL [facility] Hematocrit 29.3 (L) 42.0 - APS DAVITA 52.0 % [facility] Hemoglobin x 3 29.7 (L) 42.0 - APS DAVITA 52.0 % [facility] MCV 94.5 80.0 - APS DAVITA 100.0 fL [facility] MCH 31.8 (H) 27.0 - APS DAVITA 31.0 pg [facility] MCHC 33.6 32.0 - APS DAVITA 36.0 g/dL [facility] RDW 16.1 (H) 11.0 - APS DAVITA 15.0 % [facility] Platelets 119 (L) 150 - 400 APS DAVITA x 10'3 [facility] cells/uL Neutrophils % 70.3 % APS DAVITA Auto [facility] Lymphocytes 16.7 % APS DAVITA Manual [facility] Monocytes Manual 7.5 % APS DAVITA [facility] Eosinophil % 5.2 % APS DAVITA [facility] Basophils 0.4 % APS DAV[facility] Relative [facility] Neutrophils 4,428.90 2,000 - APS DAVITA Absolute 8,800 [facility] Cell/uL Lymphocytes 1,052.10 1,100 - APS DAVITA Absolute (L) 4,800 [facility] Cell/uL Monocytes 472.50 0 - 1,100 APS DAVITA Absolute Cell/uL [facility] Eosinophils 327.60 0 - 700 APS DAVITA Absolute Cell/uL [facility] Basophils 25.20 0 - 400 APS DAVITA Absolute Cell/uL [...] evalua fareed against established reference ranges. Globulin 3.2 0.9 - 5 g/dL APS DAV[facility] A/G Ratio 1.3 1 - 2.5 Calc APS DAVITA [facility] Specimen Anatomical Collection Method Collection Time Receive d Time (Source) Location / / Volume Laterality 10/22/2020 11:00 10/23/2020 9:45 AM CDT AM CDT Checo Sky MD LAB [id number] NSOLICITED RESULTS Performing Organization Address City/State/ZIP Code Phon e Number APS DAVITA [facility] documented in this encounter Visit Diagnoses Not on filedocumented in this encounter
--- OUTSIDE RECORDS SUMMARY | 2022-04-17 14:31 | XMS_ITS | Encounter Summary ---
:1940 Author Organization [facility] Address [address] [place] [address] Care Team Providers Name Role Phone Unavailable Primary Care Provider Unavailable Encounter Details Date Type Department Care Team Description 12/05/2020 Orders Only [facility] O f Darren Escalante MD [address] [place] [address] [place], [place] [phone] (Wo rk) Social History Tobacco Use Types Packs/Day Years Used Date Smoking Tobacco: Never Assessed Sex Assigned at Date Recorded Not on file documented as of this encounter Plan of Treatment Not on filedocumented as of this encounter Procedures Procedure Name Priority Date/Time Associated Diagnosis Comme nts HEMATOLOGY Routine 12/05/2020 Results for thi s procedure are in the resu lts section. documented in this encounter Results (ABNORMAL) HEMATOLOGY (12/05/2020) Analysis Performed At Patho logist Time Signature Hemoglobin 8.9 (L) 14.0 - APS SPECTRA 18.0 g/dL [facility] Hemoglobin x 3 26.7 (L) 42.0 - APS SPECTRA 54.0 % [facility] Specimen (Source) Anatomical Collection Method Collection Time Re ceived Time Location / / Volume Laterality 12/05/2020 12/06/2020 10:3 8 AM CDT Narrative APS SPECTRA [facility] - 12/06/2020 Unless otherwise specified, test(s) performed at: [facility], [address] [place] [id number] WOOD MECHANIST: Jacob Junior M.D. For any questions, please call customer service at FREQUENCY:OTHER Resulting Agency Comment Specimen source: Blood Darren Youssef MD LAB BLOOD ORDERABLES Performing Organization Address City/State/ZIP Code Phon e Number [facility]PS SPECT[facility] documented in this encounter Visit Diagnoses Not on filedocumented in this encounter
--- OUTSIDE RECORDS SUMMARY | 2022-04-17 14:31 | XMS_ITS | Encounter Summary ---
:1940 Author Organization [facility] Address [address] [place] [address] Care Team Providers Name Role Phone Unavailable Primary Care Provider Unavailable Encounter Details Date Type Department Care Team Description 10/01/2020 Treatment [facility] f Checo Jolly MD [address] [place] [address] [place] [address] [place], [place] [phone] Social History Tobacco Use Types Packs/Day Years Used Date Smoking Tobacco: Never Assessed Sex Assigned at Date Recorded Not on file documented as of this encounter Miscellaneous Notes Dialysis Note - Checo Sky MD - 10/01/2020 3:05 PM CDT Date: Oct 01, 2020 Patient Name: Korey Mackay : 1940 Chart #: [id number] Sex: M This patient was personally seen for a basic visit as part of routine weekly dialysis care. A reviewof the dialysis treatment, blood pressure, estimated dry weight and recent lab values was made. These were discussed with the patient and staff as necessary. PETROPHYSICIST: Checo Sky MD LOCATION: [facility] [phone] SCHEDULE: -W- 3rd Shift ACCESS: EDW: kg. DIALYZER: HD DURATION: NEEDLE SIZE: ANTICOAG: BATH: QB: ml/min QD: ml/min Subjective since his return from [place] he has had a pacer placed for bradycardia. He presented with a fever since his return and was referred to a PUI unit. As it turns out he had anabscess on his buttock which was treated and has now resolved. He had two negative tests for Covid 19 and was readmitted. Feeling well at the time of this visit. Main complaint is fatigue after dialysis, says he is doing well. Had episode of gross hematuria several weeks ago. Does not want to go to urology to look into this. He denies other sx. Denies dizziness or sob. Also denies any pain. since the pacer placed, his says he is more alert and seems stronger s but still has significant fatigue after dialysis. We have recently raised his dry weight. He did recently fall and hurt his hip. No fracture. he is having physical therapy. No other complaints. 03/19: Denies any new complaints. Hearing much better with his new hearing aide. Denies sob, eating well. Thinks he has a small amount of edema. 03/28: Feels well overlal but having cramp [...] onsult for his gross hematuria. going to [place] on Thursday. Will show up there Thursday. 09/24/20 No new complaints at this time, Just back from [place]. Says he didn't get as many cramps in [place] Dry weight is a bit higher than last fall. Denies chest pain, sob. Appetite is ok. 10/01/20 Feeling ok now but says he had acid over the week end . Says he had reflux symptoms over the week end. Last week he says he coughed up some blood on dialysis once. Denies sob or chest pain. Says he has been eating ok. Advanced Practitioner Subjective: Fatigue. 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 Cardiovascular Regular rate. Regular rhythm. No murmur heard. Edema - Trace edema. Looks comfortable today, Not sob, alert and oriented times 3. He is in no respiratory distress. Hardof hearing. Medication List No medication list is available. Allergy List No allergy list is available. Medications reviewed and no changes were made. BUN mg/dL 92 (09/17/20) 72 (04/09/20) 61 (03/12/20) 60 (02/15/20) 58 (01/09/20) CREATININE (MG/DL) IN SER/PLAS mg/dL 10.76 (09/24/20) 10.43 (09/17/20) 10.04 (04/23/20) 10.10 (03/26/20) 9.47 (02/27/20) URR% % 72 (09/17/20) 72 (04/09/20) 74 (03/12/20) 73 (02/15/20) 74 (01/09/20) WBC (BLOOD) x 103 cells/uL 7.3 (09/24/20) 6.3 (09/17/20) 6.0 (04/23/20) 6.4 (03/26/20) 6.8 (02/27/20) HGB g/dL 10.9 (09/24/20) 11.7 (09/17/20) 11.1 (04/23/20) 10.4 (04/09/20) 10.0 (03/26/20) PLATELETS x 103 cells/uL 116 (09/24/20) 120 (09/17/20) 155 (04/23/20) 134 (03/26/20) 143 (02/27/20) IRON SATURATION % 20 (09/24/20) 35 (09/17/20) 38 (04/23/20) 43 (03/26/20) 46 (02/27/20) FERRITIN ng/mL 386 (09/24/20) 355 (09/17/20) 687 (04/23/20) 705 (03/26/20) 723 (02/27/20) ALBUMIN (G/DL) g/dL 4.2 (09/24/20) 4.2 (09/17/20) 4.1 (04/23/20) 3.9 (03/26/20) 4.0 (02/27/20) SODIUM mEq/L 140 (09/24/20) 141 (09/17/20) 137 (04/23/20) 137 (03/26/20) 140 (02/27/20) POTASSIUM (MMOL/L) IN SER/PLAS mEq/L 4.1 (09/24/20) 3.9 (09/17/20) 4.4 (04/23/20) 4.4 (04/09/20) 4.6 (03/26/20) BICARBONATE (CO2) mEq/L 21 (09/24/20) 22 (09/17/20) 24 (04/23/20) 21 (03/26/20) 21 (02/27/20) CALCIUM mg/dL 8.6 (09/17/20) 8.9 (04/09/20) 9.0 (03/12/20) 9.2 (02/10/20) 8.9 (01/09/20) CORRECTED CALCIUM mg/dL 8.6 (09/17/20) 9.0 (04/09/20) 9.0 (03/12/20) 9.4 (02/10/20) 9.1 (01/09/20) PHOSPHORUS mg/dL 4.4 (09/17/20) 4.3 (04/09/20) 3.7 (03/12/20) 4.3 (02/10/20) 4.4 (01/09/20) CA*PO4 CORRCTD Calc 37.8 (09/17/20) 38.7 (04/09/20) 33.3 (03/12/20) 40.4 (02/10/20) 40.0 (01/09/20) IPTH pg/mL 432 (09/17/20) 202 (03/12/20) 238 (12/12/19) CALCIUM mg/dL 8.6 (09/17/20) 8.9 (04/09/20) 9.0 (03/12/20) 9.2 (02/10/20) 8.9 (01/09/20) CA/PHOS PRODUCT Calc 37.8 (09/17/20) 38.3 (04/09/20) 33.3 (03/12/20) 39.6 (02/10/20) 39.2 (01/09/20) CORRECTED CALCIUM mg/dL 8.6 (09/17/20) 9.0 (04/09/20) 9.0 (03/12/20) 9.4 (02/10/20) 9.1 (01/09/20) PHOSPHORUS mg/dL 4.4 (09/17/20) 4.3 (04/09/20) 3.7 (03/12/20) 4.3 (02/10/20) 4.4 (01/09/20) IPTH pg/mL 432 (09/17/20) 202 (03/12/20) 238 (12/12/19) Vascular Access Assessment: Type of access: Catheter Surgeon - [facility] Access center in [place]. Staff and patient report access is working well. Impression and Plan Stable on dialysis Phos pth calcium are at goal. Hgb is at goal More alert and stronger since pacer, though still gets very fatigued after dialysis. Phos is at goal He says he is taking binder. Access functioning well. Doing well on dialysis. Will need urologic work up for gross hematuria times 1. but so far will not make appointment . Coughed up blood last week. No sx at this time. Will discuss getting a chest xray. Checo Sky MD [ Signed And locked electronically On 10/01/2020 at 03:11:45 PM ] Transcribed: Checo Sky ( 10/01/2020 ) documented in this encounter Plan of Treatment Not on filedocumented as of this encounter Visit Diagnoses Not on filedocumented in this encounter
--- OUTSIDE RECORDS SUMMARY | 2022-04-17 14:31 | XMS_ITS | Encounter Summary ---
:1940 Author Organization [facility] Address [address] [place] [address] Care Team Providers Name Role Phone Unavailable Primary Care Provider Unavailable Encounter Details Date Type Department Care Team Description 10/29/2020 Orders Only [facility] O f Darren Escalante MD [phone] [place] [address] [place], [place] [phone] (Wo rk) Social History Tobacco Use Types Packs/Day Years Used Date Smoking Tobacco: Never Assessed Sex Assigned at Date Recorded Not on file documented as of this encounter Plan of Treatment Not on filedocumented as of this encounter Procedures Procedure Name Priority Date/Time Associated Diagnosis Comme nts HD KINETICS Routine 10/29/2020 Results for thi s procedure are i n the results section . SPECIAL CHEMISTRY Routine 10/29/2020 Results fo r this procedure are i n the results section . POST CHEMISTRY Routine 10/29/2020 Results for t his procedure are i n the results section . TRACE ELEMENTS Routine 10/29/2020 Results for t his procedure are i n the results section . HEMATOLOGY Routine 10/29/2020 Results for thi s procedure are i n the results section . CHEMISTRY Routine 10/29/2020 Results for thi s procedure are i n the results section . CHEMISTRY Routine 10/29/2020 Results for thi s procedure are i n the results section . SPECTRA [place] LAB RESULTS Routine 10/29/2020 Resul ts for this procedure are i n the results section . documented in this encounter Results Spectra [place] Lab Results (10/29/2020) P athologist Signature spKt/V 1.37 [place] ([place]) eKt/V 1.17 [place] ([place]) Specimen (Source) Anatomical Location Collection Method / Collectio n Time Received Time / Laterality Volume 10/29/2020 10/29/2020 [place] Ordering Provider LAB BLOOD ORDERABLES Performing Organization Address City/[facility] Code Phon e Number [place] Spectrae Chemistry (10/29/2020) P athologist Signature PTH 67 16 - 80 APS SPECTRA pg/mL [facility] Specimen (Source) Anatomical Collection Method Collection Time Re ceived Time Location / / Volume Laterality 10/29/2020 10/30/2020 8:57 PM CDT Narrative APS SPECTRA [facility] - 10/30/2020 Unless otherwise specified, test(s) performed at: [facility], [address] [place] [address] CAREER DEVELOPMENT COORDINATOR: Jacob Junior M.D. For any questions, please call customer service at FREQUENCY:MONTHLY Resulting Agency Comment Specimen source: Plasma Darren Youssef MD LAB BLOOD ORDERABLES Performing Organization Address [facility] Phon e Number APS SPECTRA [facility] (ABNORMAL) TRACE ELEMENTS (10/29/2020) P athologist Signature Aluminum 12 (H) 0 - 10 APS SPECTRA mcg/L [facility] Comment: This test was developed and its performa nce characteristics determined by [facility]. It has not been cleared or approved by the FDA. The laboratory is regulated under CLIA a s qualified to perform high complexity testing. This test is used fo r clinical purposes. It should not be regarded as investigational or fo r research. Specimen (Source) Anatomical Collection Method Collection Time Re ceived Time Location / / Volume Laterality 10/29/2020 10/30/2020 2:15 PM CDT Narrative APS SPECTRA [facility] - 10/30/2020 Unless otherwise specified, test(s) performed at: [facility], [address] [place] [address] CAREER DEVELOPMENT COORDINATOR: Jacob Junior M.D. For any questions, please call customer service at FREQUENCY:MONTHLY Resulting Agency Comment Specimen source: Serum Darren Youssef MD LAB BLOOD ORDERABLES Performing Organization Address [facility] Phon e Number APS SPECTRA [facility] (ABNORMAL) HEMATOLOGY (10/29/2020) Analysis Performed At Patho logist Time Signature WBC 8.65 4.80 - APS SPECTRA 10.80 [facility] 1000/mcL RBC 3.06 (L) 4.70 - APS SPECTRA 6.10 [facility] mill/mcL Hemoglobin 9.9 (L) 14.0 - APS SPECTRA 18.0 g/dL [facility] Hemoglobin x 3 29.7 (L) 42.0 - [facility] 54.0 % [facility] Hematocrit 29.3 (L) 42.0 - [facility] 52.0 % [facility] MCV 96 80 - 100 APS SPECTRA fl [facility] MCH 32.3 (H) 27.0 - [facility] 31.0 pg [facility] MCHC 33.7 30.0 - APS [facility]RA 36.0 g/dL [facility] RDW 15.9 (H) 11.5 - [facility] 14.5 % [facility] Platelets 109 (L) 130 - 400 APS SPECTRA 1000/mcL [facility] Specimen (Source) Anatomical Collection Method Collection Time Re ceived Time Location / / Volume Laterality 10/29/2020 10/30/2020 2:21 PM CDT Narrative APS SPECTRA [facility] - 10/30/2020 Unless otherwise specified, test(s) performed at: [facility], [address] [place] [address] CAREER DEVELOPMENT COORDINATOR: Jacob Junior M.D. For any questions, please call customer service at FREQUENCY:MONTHLY Resulting Agency Comment Specimen source: Blood Darren Youssef MD LAB BLOOD ORDERABLES Performing Organization Address City/[facility] Code Phon e Number APS SPECTRA [facility] HD KINETICS (10/29/2020) P athologist Signature % Urea 70 65 - 80 % APS SPECTRA Reduction [facility] Specimen (Source) Anatomical Collection Method Collection Time Re ceived Time Location / / Volume Laterality 10/29/2020 10/30/2020 2:16 PM CDT Resulting Agency Comment Specimen source: Plasma Darren Youssef MD LAB BLOOD ORDERABLES Performing Organization Address City/State/ZIP Code Phon e Number APS SPECTRA [facility] POST CHEMISTRY (10/29/2020) P athologist Signature BUN Post 18 6 - 19 APS SPECTRA Dialysis mg/dL [facility] Specimen (Source) Anatomical Collection Method Collection Time Re ceived Time Location / / Volume Laterality 10/29/2020 10/30/2020 2:16 PM CDT Narrative APS SPECTRA [facility] - 10/30/2020 Unless otherwise specified, test(s) performed at: [facility], [address] [place], [place] [id number] CAREER DEVELOPMENT COORDINATOR: Jacob Junior M.D. For any questions, please call customer service at FREQUENCY:MONTHLY Resulting Agency Comment Specimen source: Plasma Darren Youssef MD LAB BLOOD ORDERABLES Performing Organization Address City/State/ZIP Code Phon e Number APS SPECTRA [facility] SPECIAL CHEMISTRY (10/29/2020) athologist Signature Vitamin D, 62.5 30.0 - APS SPECTRA 25-OH, Total 100.0 [facility] ng/mL Comment: Vitamin D Status Classification: Deficiency ? <10.0 ng/mL Insufficiency ?10.0-30.0 ng/mL Sufficiency ?30.0-100.0 ng/mL Toxicity ? >100.0 ng/mL Specimen (Source) Anatomical Collection Method Collection Time Re ceived Time Location / / Volume Laterality 10/29/2020 10/30/2020 2:14 PM CDT Resulting Agency Comment Specimen source: Serum Darren Youssef MD LAB BLOOD BANK TEST ORDERABL ES Performing Organization Address City/State/ZIP Code Phon e Number APS SPECTRA [facility] (ABNORMAL) Spectrae Chemistry (10/29/2020) Patholo gist Method Time Signature BUN 61 (H) 6 - 19 APS SPECTRA mg/dL [facility] Creatinine 9.72 (H) 0.60 - APS SPECTRA 1.30 mg/dL [facility] BUN/Creatinine 6.3 (L) 10.0 - APS SPECTRA Ratio 20.0 [facility] Sodium 137 136 - 145 APS SPECTRA mEq/L [facility] Potassium 4.9 3.5 - 5.1 APS SPECTRA mEq/L [facility] Chloride 102 96 - 108 APS SPECTRA mEq/L [facility] Bicarbonate 22 22 - 29 APS SPECTRA (CO2) mEq/L [facility] Calcium 9.5 8.4 - 10.2 APS SPECTRA mg/dL [facility] Corrected 9.7 8.4 - 10.2 APS SPECTRA Calcium mg/dL [facility] Comment: Corrected Calcium is not equivalent to m easured Ionized Calcium. Phosphorus 2.1 (L) 2.6 - 4.5 mg/dL APS SPECTRA [facility] Calcium Phosphorus Product 20 0 - 54 APS SPECTRA [facility] Calcium Phosporus Product, Cor 20 0 - 54 APS SPECTRA [facility] Alkaline Phosphatase 96 40 - 129 U/L APS SP ECTRA [facility] Total Protein 7.1 6.0 - 8.5 g/dL APS SPECTRA [facility] Albumin 3.7 3.5 - 5.2 g/dL APS SPECTRA [facility] Globulin, Total 3.4 2.0 - 4.0 g/dL APS SPECT RA [facility] A/G Ratio 1.1 1.0 - 2.0 APS SPECTRA [facility] Magnesium 1.8 1.6 - 2.6 mg/dL APS SPECTRA [facility] Ferritin 684 (H) 22 - 322 ng/mL APS SPECTRA [facility] Iron 44 (L) 45 - 160 mcg/dL APS SPECTRA [facility] UIBC 156 155 - 355 mcg/dL APS SPECTRA [facility] TIBC 200 185 - 515 mcg/dL APS SPECTRA [facility] Iron Saturation (TSat) 22 20 - 55 % APS SPE CTRA [facility] Specimen (Source) Anatomical Collection Method Collection Time Re ceived Time Location / / Volume Laterality 10/29/2020 10/30/2020 2:14 PM CDT Narrative APS SPECTRA [facility] - 10/30/2020 Unless otherwise specified, test(s) performed at: [facility], [address] [place] [address] CAREER DEVELOPMENT COORDINATOR: Jacob Junior M.D. For any questions, please call customer service at FREQUENCY:MONTHLY Resulting Agency Comment Specimen source: Serum Darren Youssef MD LAB BLOOD ORDERABLES Performing Organization Address City/State/ZIP Code Phon e Number APS SPECTRA [facility] documented in this encounter Visit Diagnoses Not on filedocumented in this encounter
--- OUTSIDE RECORDS SUMMARY | 2022-04-17 14:31 | XMS_ITS | Encounter Summary ---
:1940 Author Organization [facility] Address [address] [place] [address] Care Team Providers Name Role Phone Unavailable Primary Care Provider Unavailable Encounter Details Date Type Department Care Team Description 04/30/2020 Treatment [facility] O f Checo Jolly MD [address] [place] [address] [place] [address] [place], [place] [phone] Social History Tobacco Use Types Packs/Day Years Used Date Smoking Tobacco: Never Assessed Sex Assigned at Date Recorded Not on file documented as of this encounter Miscellaneous Notes Dialysis Note - Checo Sky MD - 04/30/2020 4:12 PM CST Date: Apr 30, 2020 Patient Name: Korey Mackay : 1940 Chart #: [id number] Sex: M This patient was personally seen for a basic visit as part of routine weekly dialysis care. A reviewof the dialysis treatment, blood pressure, estimated dry weight and recent lab values was made. These were discussed with the patient and staff as necessary. RIDING DOUBLE: Checo kSy MD LOCATION: [phone] SCHEDULE: -- 3rd Shift ACCESS: EDW: kg. DIALYZER: HD DURATION: NEEDLE SIZE: ANTICOAG: BATH: QB: ml/min QD: ml/min Subjective since his return from [place] he has had a pacer placed for [...] No sob eating well. Will go to [place] soon for the winter. 04/30/20. Pt feels well, denies sob, eating wlll, no new complaints. He decided against urology onsult for his gross hematuria. going to [place] on Thursday. Will show up there Thursday. Advanced Practitioner Subjective: Fatigue. Problem List Description [...] and no changes were made. BUN mg/dL 72 (04/09/20) 61 (03/12/20) 60 (02/15/20) 58 (01/09/20) 46 (12/21/19) CREATININE (MG/DL) IN SER/PLAS mg/dL 10.04 (04/23/20) 10.10 (03/26/20) 9.47 (02/27/20) 10.03 (01/23/20) 9.95 (12/26/19) URR% % 72 (04/09/20) 74 (03/12/20) 73 (02/15/20) 74 (01/09/20) 72 (12/21/19) WBC (BLOOD) x 103 cells/uL 6.0 (04/23/20) 6.4 (03/26/20) 6.8 (02/27/20) 6.0 (01/23/20) 7.3 (12/26/19) HGB g/dL 11.1 (04/23/20) 10.4 (04/09/20) 10.0 (03/26/20) 10.0 (03/12/20) 10.6 (02/27/20) PLATELETS x 103 cells/uL 155 (04/23/20) 134 (03/26/20) 143 (02/27/20) 132 (01/23/20) 160 (12/26/19) IRON SATURATION % 38 (04/23/20) 43 (03/26/20) 46 (02/27/20) 34 (01/23/20) 42 (12/26/19) FERRITIN ng/mL 687 (04/23/20) 705 (03/26/20) 723 (02/27/20) 768 (01/23/20) 622 (12/26/19) ALBUMIN (G/DL) g/dL 4.1 (04/23/20) 3.9 (03/26/20) 4.0 (02/27/20) 3.8 (01/23/20) 3.8 (12/26/19) SODIUM mEq/L 137 (04/23/20) 137 (03/26/20) 140 (02/27/20) 138 (01/23/20) 138 (12/26/19) POTASSIUM (MMOL/L) IN SER/PLAS mEq/L 4.4 (04/23/20) 4.4 (04/09/20) 4.6 (03/26/20) 4.7 (03/12/20) 4.3 (02/27/20) BICARBONATE (CO2) mEq/L 24 (04/23/20) 21 (03/26/20) 21 (02/27/20) 27 (01/23/20) 25 (12/26/19) CALCIUM mg/dL 8.9 (04/09/20) 9.0 (03/12/20) 9.2 (02/10/20) 8.9 (01/09/20) 9.0 (12/12/19) CORRECTED CALCIUM mg/dL 9.0 (04/09/20) 9.0 (03/12/20) 9.4 (02/10/20) 9.1 (01/09/20) 9.1 (12/12/19) PHOSPHORUS mg/dL 4.3 (04/09/20) 3.7 (03/12/20) 4.3 (02/10/20) 4.4 (01/09/20) 4.2 (12/12/19) CA*PO4 CORRCTD Calc 38.7 (04/09/20) 33.3 (03/12/20) 40.4 (02/10/20) 40.0 (01/09/20) 38.2 (12/12/19) IPTH pg/mL 202 (03/12/20) 238 (12/12/19) 121 (09/12/19) CALCIUM mg/dL 8.9 (04/09/20) 9.0 (03/12/20) 9.2 (02/10/20) 8.9 (01/09/20) 9.0 (12/12/19) CA/PHOS PRODUCT Calc 38.3 (04/09/20) 33.3 (03/12/20) 39.6 (02/10/20) 39.2 (01/09/20) 37.8 (12/12/19) CORRECTED CALCIUM mg/dL 9.0 (04/09/20) 9.0 (03/12/20) 9.4 (02/10/20) 9.1 (01/09/20) 9.1 (12/12/19) PHOSPHORUS mg/dL 4.3 (04/09/20) 3.7 (03/12/20) 4.3 (02/10/20) 4.4 (01/09/20) 4.2 (12/12/19) IPTH pg/mL 202 (03/12/20) 238 (12/12/19) 121 (09/12/19) Vascular Access Assessment: Type of access: Catheter Surgeon - [facility], Access center in [place]. Staff and patient report access is working well. Impression and Plan Stable on dialysis Phos pth calcium are at goal. Hgb is just above goal. More alert and stronger since pacer, though still gets very fatigued after dialysis. Phos is at goal He says he is taking binder. Access functioning well. Doing well on dialysis. Will need urologic work up for gross hematuria times 1. but so far will not make appointment . Checo Sky MD [ Signed And locked electronically On 04/30/2020 at 04:18:23 PM ] Transcribed: Checo Sky ( 04/30/2020 ) documented in this encounter Plan of Treatment Not on filedocumented as of this encounter Visit Diagnoses Not on filedocumented in this encounter
--- OUTSIDE RECORDS SUMMARY | 2022-04-17 14:31 | XMS_ITS | Encounter Summary ---
:1940 Author Organization [facility] Address [address] [place] [address] Care Team Providers Name Role Phone Unavailable Primary Care Provider Unavailable Encounter Details Date Type Department Care Team Description 11/28/2020 Orders Only [facility] O f Darren Escalante MD [phone] [place] [address] [place], [place] [phone] (Wo rk) Social History Tobacco Use Types Packs/Day Years Used Date Smoking Tobacco: Never Assessed Sex Assigned at Date Recorded Not on file documented as of this encounter Plan of Treatment Not on filedocumented as of this encounter Procedures Procedure Name Priority Date/Time Associated Diagnosis Comme nts HD KINETICS Routine 11/28/2020 Results for thi s procedure are i n the results section . POST CHEMISTRY Routine 11/28/2020 Results for t his procedure are i n the results section . HEMATOLOGY Routine 11/28/2020 Results for thi s procedure are i n the results section . CHEMISTRY Routine 11/28/2020 Results for thi s procedure are i n the results section . SPECTRA [place] LAB RESULTS Routine 11/28/2020 Resul ts for this procedure are i n the results section . documented in this encounter Results Spectra [place] Lab Results (11/28/2020) P athologist Signature spKt/V Gotch 1.39 [place] eKt/V 1.17 [place] ([place]) PCR 60.02 [place] nPCR_HD 0.77 [place] eNPCR 0.70 [place] eKt/V Gotch 1.18 [place] eKdrt/V 1.18 [place] spKt/V 1.37 [place] ([place] II) Specimen (Source) Anatomical Location Collection Method / Collectio n Time Received Time / Laterality Volume 11/28/2020 11/28/2020 [place] Ordering Provider LAB BLOOD ORDERABLES Performing Organization Address [facility]/ZIP Code Phon e Number [place] (ABNORMAL) HEMATOLOGY (11/28/2020) Analysis Performed At Patho logist Time Signature Hemoglobin 8.3 (L) 14.0 - APS SPECTRA 18.0 g/dL [facility] Hemoglobin x 3 24.9 (L) 42.0 - APS SPECTRA 54.0 % [facility] Specimen (Source) Anatomical Collection Method Collection Time Re ceived Time Location / / Volume Laterality 11/28/2020 11/30/2020 7:08 AM CDT Narrative APS SPECTRA [facility] - 11/30/2020 Unless otherwise specified, test(s) performed at: [facility], [address] [place] [address] SUPERVISOR TREATING AND PUMPING: Jacob Junior M.D. For any questions, please call customer service at FREQUENCY:OTHER Resulting Agency Comment Specimen source: Blood Darren Youssef MD LAB BLOOD ORDERABLES Performing Organization Address [facility] Phon e Number APS SPECTRA [facility] HD KINETICS (11/28/2020) P athologist Signature % Urea 69 65 - 80 % APS SPECTRA Reduction [facility] Specimen (Source) Anatomical Collection Method Collection Time Re ceived Time Location / / Volume Laterality 11/28/2020 11/30/2020 7:20 AM CDT Resulting Agency Comment Specimen source: Serum Darren Youssef MD LAB BLOOD ORDERABLES Performing Organization Address [facility] Code Phon e Number APS SPECTRA [facility] POST CHEMISTRY (11/28/2020) P athologist Signature BUN Post 13 6 - 19 APS SPECTRA Dialysis mg/dL [facility] Specimen (Source) Anatomical Collection Method Collection Time Re ceived Time Location / / Volume Laterality 11/28/2020 11/30/2020 7:00 AM CDT Narrative APS SPECTRA [facility] - 11/30/2020 Unless otherwise specified, test(s) performed at: [facility], [address] [place], [place] [id number] SUPERVISOR TREATING AND PUMPING: Jacob Junior M.D. For any questions, please call customer service at FREQUENCY:OTHER Resulting Agency Comment Specimen source: Plasma Darren Youssef MD LAB BLOOD ORDERABLES Performing Organization Address City/State/ZIP Code Phon e Number APS SPECTRA [facility] (ABNORMAL) Spectrae Chemistry (11/28/2020) P athologist Signature BUN 42 (H) 6 - 19 APS SPECTRA mg/dL [facility] Specimen (Source) Anatomical Collection Method Collection Time Re ceived Time Location / / Volume Laterality 11/28/2020 11/30/2020 7:19 AM CDT Narrative APS SPECTRA [facility] - 11/30/2020 Unless otherwise specified, test(s) performed at: [facility], [address] [place] [address] SUPERVISOR TREATING AND PUMPING: Jacob Junior M.D. For any questions, please call customer service at FREQUENCY:OTHER Resulting Agency Comment Specimen source: Serum Darren Youssef MD LAB BLOOD ORDERABLES Performing Organization Address City/State/ZIP Code Phon e Number APS SPECTRA [facility] documented in this encounter Visit Diagnoses Not on filedocumented in this encounter
--- OUTSIDE RECORDS SUMMARY | 2022-04-17 14:31 | XMS_ITS | Encounter Summary ---
:1940 Author Organization [facility] Address [address] [place] [address] Care Team Providers Name Role Phone Unavailable Primary Care Provider Unavailable Encounter Details Date Type Department Care Team Description 09/24/2020 Treatment [facility] O f Checo Jolly MD [address] [place] [address] [place] [address] [place], [place] [phone] Social History Tobacco Use Types Packs/Day Years Used Date Smoking Tobacco: Never Assessed Sex Assigned at Date Recorded Not on file documented as of this encounter Miscellaneous Notes Dialysis Note - Checo Sky MD - 09/24/2020 4:00 PM CDT Date: Sep 24, 2020 Patient Name: Korey Mackay : 1940 Chart #: [id number] Sex: M This patient was personally seen for a basic visit as part of routine weekly dialysis care. A reviewof the dialysis treatment, blood pressure, estimated dry weight and recent lab values was made. These were discussed with the patient and staff as necessary. DRESS CAP MAKER: Checo Sky MD LOCATION: [facility] [phone] SCHEDULE: -W- 3rd Shift ACCESS: EDW: kg. DIALYZER: HD DURATION: NEEDLE SIZE: ANTICOAG: BATH: QB: ml/min QD: ml/min Subjective since his return from [place] he has had a pacer placed for [...] Denies chest pain, sob. Appetite is ok. Advanced Practitioner Subjective: Fatigue. Problem List [...] 58 (01/09/20) CREATININE (MG/DL) IN SER/PLAS mg/dL 10.43 (09/17/20) 10.04 (04/23/20) 10.10 (03/26/20) 9.47 (02/27/20) 10.03 (01/23/20) URR% % 72 (09/17/20) 72 (04/09/20) 74 (03/12/20) 73 (02/15/20) 74 (01/09/20) WBC (BLOOD) x 103 cells/uL 6.3 (09/17/20) 6.0 (04/23/20) 6.4 (03/26/20) 6.8 (02/27/20) 6.0 (01/23/20) HGB g/dL 11.7 (09/17/20) 11.1 (04/23/20) 10.4 (04/09/20) 10.0 (03/26/20) 10.0 (03/12/20) PLATELETS x 103 cells/uL 120 (09/17/20) 155 (04/23/20) 134 (03/26/20) 143 (02/27/20) 132 (01/23/20) IRON SATURATION % 35 (09/17/20) 38 (04/23/20) 43 (03/26/20) 46 (02/27/20) 34 (01/23/20) FERRITIN ng/mL 355 (09/17/20) 687 (04/23/20) 705 (03/26/20) 723 (02/27/20) 768 (01/23/20) ALBUMIN (G/DL) g/dL 4.2 (09/17/20) 4.1 (04/23/20) 3.9 (03/26/20) 4.0 (02/27/20) 3.8 (01/23/20) SODIUM mEq/L 141 (09/17/20) 137 (04/23/20) 137 (03/26/20) 140 (02/27/20) 138 (01/23/20) POTASSIUM (MMOL/L) IN SER/PLAS mEq/L 3.9 (09/17/20) 4.4 (04/23/20) 4.4 (04/09/20) 4.6 (03/26/20) 4.7 (03/12/20) BICARBONATE (CO2) mEq/L 22 (09/17/20) 24 (04/23/20) 21 (03/26/20) 21 (02/27/20) 27 (01/23/20) CALCIUM mg/dL 8.6 (09/17/20) 8.9 (04/09/20) 9.0 [...] Surgeon - [facility], Access center in [place]. Staff and patient report access is working [...] MD [ Signed And locked electronically On 09/24/2020 at 04:03:47 PM ] Transcribed: Checo Sky ( 09/24/2020 ) documented in this encounter Plan of Treatment Not on filedocumented as of this encounter Visit Diagnoses Not on filedocumented in this encounter
--- OUTSIDE RECORDS SUMMARY | 2022-04-17 14:31 | XMS_ITS | Encounter Summary ---
:1940 Author Organization [facility] Address [address] [place] [address] Care Team Providers Name Role Phone Unavailable Primary Care Provider Unavailable Encounter Details Date Type Department Care Team Description 12/19/2020 Orders Only [facility] O f Darren Escalante MD [phone] [place] [address] [place], [place] [phone] (Wo rk) Social History Tobacco Use Types Packs/Day Years Used Date Smoking Tobacco: Never Assessed Sex Assigned at Date Recorded Not on file documented as of this encounter Plan of Treatment Not on filedocumented as of this encounter Procedures Procedure Name Priority Date/Time Associated Diagnosis Comme nts HEMATOLOGY Routine 12/19/2020 Results for thi s procedure are in the resu lts section. documented in this encounter Results (ABNORMAL) HEMATOLOGY (12/19/2020) Analysis Performed At Patho logist Time Signature Hemoglobin 9.7 (L) 14.0 - APS SPECTRA 18.0 g/dL [facility] Hemoglobin x 3 29.1 (L) 42.0 - APS SPECTRA 54.0 % [facility] Specimen (Source) Anatomical Collection Method Collection Time Re ceived Time Location / / Volume Laterality 12/19/2020 12/20/2020 8:03 PM CDT Narrative APS SPECTRA [facility] - 12/20/2020 Unless otherwise specified, test(s) performed at: [facility], [address] [place] [id number] MANAGER OF GLOBAL: Jacob Junior M.D. For any questions, please call customer service at FREQUENCY:OTHER Resulting Agency Comment Specimen source: Blood Darren Youssef MD LAB BLOOD ORDERABLES Performing Organization Address City/State/ZIP Code Phon e Number APS SPECTRA [facility] documented in this encounter Visit Diagnoses Not on filedocumented in this encounter
--- OUTSIDE RECORDS SUMMARY | 2022-04-17 14:31 | XMS_ITS | Encounter Summary ---
:1940 Author Organization [facility] Address [address] [place] [address] Care Team Providers Name Role Phone Unavailable Primary Care Provider Unavailable Encounter Details Date Type Department Care Team Description 10/24/2020 Treatment [facility] Darren Escalante MD [address] [place] [address] [place], [place] [phone] (Wo rk) Social History Tobacco Use Types Packs/Day Years Used Date Smoking Tobacco: Never Assessed Sex Assigned at Date Recorded Not on file documented as of this encounter Miscellaneous Notes Dialysis Note - Darren Youssef MD - 10/24/2020 1:20 PM CDT Date: October 24, 2020 Patient Name: Korey Mackay : 1940 Chart #: [id number] Sex: M Patient Type: ESRD Modality: Hemodialysis Primary Cause of Renal Failure: E11.9 - Type 2 diabetes mellitus Manager Cardiovascular: Darren Youssef MD Location: [phone] Schedule: M-W-F 2nd Shift Initial Access Date Regular Chronic Dialysis Began: 11/01/2018Initial Modality: Hemodialysis Initial Access used on first patient dialysis: Catheter - No Reason Selected Current Access Access used for current outpatient dialysis: AVF Darren Youssef MD [ Signed And locked electronically On 10/24/2020 at 12:20:11 PM ] Transcribed: Darren Youssef MD ( 10/24/2020 ) documented in this encounter Plan of Treatment Not on filedocumented as of this encounter Visit Diagnoses Not on filedocumented in this encounter
--- OUTSIDE RECORDS SUMMARY | 2022-04-17 14:31 | XMS_ITS | Encounter Summary ---
:1940 Author Organization [facility] Address [address] [place] [address] Care Team Providers Name Role Phone Unavailable Primary Care Provider Unavailable Encounter Details Date Type Department Care Team Description 11/14/2020 Orders Only [facility] Darren Escalante MD [address] [place] [address] [place], [place] [phone] (Wo rk) Social History Tobacco Use Types Packs/Day Years Used Date Smoking Tobacco: Never Assessed Sex Assigned at Date Recorded Not on file documented as of this encounter Plan of Treatment Not on filedocumented as of this encounter Procedures Procedure Name Priority Date/Time Associated Diagnosis Comme nts HEMATOLOGY Routine 11/14/2020 Results for thi s procedure are in the resu lts section. documented in this encounter Results (ABNORMAL) HEMATOLOGY (11/14/2020) Analysis Performed At Patho logist Time Signature Hemoglobin 8.2 (L) 14.0 - [facility] 18.0 g/dL [facility] Hemoglobin x 3 24.6 (L) 42.0 - [facility] 54.0 % [facility] Specimen (Source) Anatomical Collection Method Collection Time Re ceived Time Location / / Volume Laterality 11/14/2020 11/15/2020 7:03 PM CDT Narrative [facility] - 11/15/2020 Unless otherwise specified, test(s) performed at: [facility], [address] [place] [id number] CURATOR: Jacob Junior M.D. For any questions, please call customer service at FREQUENCY:OTHER Resulting Agency Comment Specimen source: Blood Darren Youssef MD LAB BLOOD ORDERABLES Performing Organization Address City/State/ZIP Code Phon e Number [facility] documented in this encounter Visit Diagnoses Not on filedocumented in this encounter
--- OUTSIDE RECORDS SUMMARY | 2022-04-17 14:31 | XMS_ITS | Encounter Summary ---
:1940 Author Organization [facility] Address [address] [place] [address] Care Team Providers Name Role Phone Unavailable Primary Care Provider Unavailable Encounter Details Date Type Department Care Team Description 11/07/2020 Treatment [facility] Darren Singh MD [address] [place] [address] [place], [place] [phone] (Wo rk) Social History Tobacco Use Types Packs/Day Years Used Date Smoking Tobacco: Never Assessed Sex Assigned at Date Recorded Not on file documented as of this encounter Miscellaneous Notes Dialysis Note - Darren Youssef MD - 11/07/2020 11:14 AM CDT Date: Nov 07, 2020 Patient Name: Korey Mackay : 1940 Chart #: [id number] Sex: M This patient was personally seen for a complete visit as part of routine monthly dialysis care. A review of the dialysis treatment, blood pressure, estimated dry weight and recent lab values was made. These were discussed with the patient and staff as necessary. Treatment Data for 11/07/2020 started at:9:56 AM Dialyzer: 180NRe Optiflux Na: 137 mEq/L Bicarb: 35 mEq/L Dialysate: 3.0 K, 2.25 Ca, 1.0 Mg, 100 Dextrose (N3231) Dialysate/Machine Temp (prescribed): 37 C Dialysate/Machine Temp (actual): 37 C BFR (prescribed): 450 BFR (actual): 450 Prescribed time: 03:30 EDW: 102.5 kg Access Type: Active (In Use):AVFistula-Standard/Left Forearm Pre Dialysis Vitals (for 11/07/2020 9:48 AM ) Pre BP (sit): 109/45 Pre Wt: 105.1 kg Temp: 98.5 F Post Dialysis Vitals (for 11/05/2020 1:40 PM ) Post BP (sit): 152/73 Post Wt: 102.1 kg Current Dialysis Vitals (for 11/07/2020 10:33 AM ) BP (sit): 130/59 AP(-) / MEDICAL RECORDS LIBRARY PROFESSOR: 272/190 Pulse: 69 Chairside data as of 11/07/2020 10:33 AM Last 3 Treatments 11/05/2020 11/02/2020 10/31/2020 EDW (kg) 102.5 102.5 102.5 Weight Pre (kg) 104.8 104.4 102.2 Weight Post (kg) 102.1 101.8 101.3 Dialytic Weight Loss (kg) -2.7 -2.6 -0.9 EDW Deviation (kg) -0.4 -0.7 -1.2 BP Sit Pre 126/63 101/48 101/42 BP Sit Post 152/73 137/67 144/71 UF Rate (mL/kg/hr) 8 7 2 Prescribed BFR 450 450 450 Average Delivered BFR 410 460 460 Prescribed Treatment Time 03:30 03:30 03:30 Actual Treatment Time 03:28 03:30 03:31 CHARTERED WEALTH MANAGER: Darren Youssef MD LOCATION: [phone] SCHEDULE: -- 2nd Shift EDW: kg. DIALYZER: HD DURATION: NEEDLE SIZE: ANTICOAG: BATH: QB: ml/min QD: ml/min Subjective 11/07/20: Notes below from Dr. Sky. I am meeting patient today for first time. He transferred from [facility] - he was unhappy with [...] No sob eating well. Will go to [place] soon for the winter. 04/30/20. Pt feels well, denies sob, eating wlll, no new complaints. He decided against urology onsult for his gross hematuria. going to [place] on Thursday. Will show up there Thursday. 09/24/20 No new complaints at this time, Just back from [place]. Says he didn't get as many cramps in [place] Dry weight is a bit higher than [...] sob. Advanced Practitioner Subjective Review of Systems Fatigue. 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 He now has two homes, one in [place] and one in [place]. He and his winter in [place]. They have one daughter that lives in [place], [place] and they have one son (who's [...] tablet by mouth once a day calcium acetate 667 mg tablet Take 1 tablet by mouth three times a day with meals Dialyvite (b complex 90-evzdo-f-biot-zinc) [phone] hf-vw-iic-mg tablet Take 1 tablet by mouth once [...] Treatment and Adequacy Assessment BUN mg/dL 61 (10/29/20) UREA NITROGEN (MG/DL) IN SER/PLAS - POST DIALYSIS mg/dL 18 (10/29/20) URR % 70 (10/29/20) spKt/V (Daugirdas II) 1.3700 (10/29/20) BUN mg/dL 72 (10/08/20) 92 [...] Anemia Assessment HEMOGLOBIN (G/DL) IN BLOOD g/dL 9.1 (10/31/20) 9.9 (10/29/20) PLATELETS 1000/mcL 109 (10/29/20) IRON SATURATION % 22 (10/29/20) FERRITIN ng/mL 684 (10/29/20) WBC [...] Hemoglobin is below goal. Iron Saturation is below goal. Ferritin is at goal. Will adjust MISTY and intravenous iron per protocol. Nutritional and Metabolic Assessment ALBUMIN (G/DL) g/dL 3.7 (10/29/20) Sodium mEq/L 137 (10/29/20) POTASSIUM (MMOL/L) IN SER/PLAS mEq/L 4.9 (10/29/20) BICARBONATE (CO2) mEq/L 22 (10/29/20) 25 OH VITAMIN D ng/mL [...] Bone and Mineral Metabolism Assessment Calcium mg/dL 9.5 (10/29/20) CALCIUM (MG/DL) CORRECTED FOR ALBUMIN IN SER/PLAS mg/dL 9.7 (10/29/20) PHOSPHATE (MG/DL) IN SER/PLAS mg/dL 2.1 (10/29/20) CALCIUM PHOSPHORUS PRODUCT, COR 20 (10/29/20) IPTH pg/mL 67 (10/29/20) CALCIUM [...] (10/08/20) 432 (09/17/20) 202 (03/12/20) 238 (12/12/19) Corrected Calcium is at goal. Phosphorous is below goal. Intact PTH is below goal. Information Technology Data Analyst will adjust binders and vitamin D per protocol and continue to provide dietary education. Secondary renal hyperparathyroidism - reduce calcium binder, monitor PTH and phos with goal phos 3.5-5.5 and PTH 150-600 Cardiovascular Assessment Blood pressures reviewed and are acceptable. Intradialytic weight gains are appropriate. Estimated dry weight is appropriate. Continue same cardiovascular medications. Transplant Status: Patient is not a candidate. Age >80 and co-morbidities Resuscitation Status Overall doing well here at our unit since transfer. No change to dialysis prescription 1. T2DM - controlled, last A1C 5.8%, not on medication for DM anymore 2. Hx of diabetic foot wound, charcot foot, complication from DM - regular foot checks continue and no active foot infections, DM controlled 3. Coronary arteriosclosclerosis, hx of CABG in 2006 - no anginal symptoms, continue ASA and Statin 4. Chronic systolic heart failure, ishcemic DIETARY INTERNSHIP - stable LVEF 45% on last echo, fluid management perdialysis with <13 ml/kg/hr UFR 5. Pulmonary emphysema - symptoms of SOB stable, none at rest, does not use regular inhaler. He quitsmoking, encouraged ongoing abstinence from smoking 6. Gross hematuria - on abx for ?infection, got CT Urogram (negative, reviewed by me), has Urology follow-up this week. To complete levofloxacin and f/u with Urology. Darren Youssef MD [ Signed And locked electronically On 11/07/2020 at 11:31:24 AM ] Transcribed: Darren Youssef ( 11/07/2020 ) documented in this encounter Plan of Treatment Not on filedocumented as of this encounter Visit Diagnoses Not on filedocumented in this encounter
--- OUTSIDE RECORDS SUMMARY | 2022-04-17 14:31 | XMS_ITS | Encounter Summary ---
:1940 Author Organization [facility] Address [address] [place] [address] Care Team Providers Name Role Phone Unavailable Primary Care Provider Unavailable Encounter Details Date Type Department Care Team Description 11/19/2020 Orders Only [facility] f Darren Escalante MD [phone] [place] [address] [place], [place] [phone] (Wo rk) Social History Tobacco Use Types Packs/Day Years Used Date Smoking Tobacco: Never Assessed Sex Assigned at Date Recorded Not on file documented as of this encounter Plan of Treatment Not on filedocumented as of this encounter Procedures Procedure Name Priority Date/Time Associated Diagnosis Comme nts IMMUNO CHEMISTRY Routine 11/19/2020 Results for this procedure are in the resu lts section. documented in this encounter Results IMMUNO CHEMISTRY (11/19/2020) P athologist Signature Hep B Surface Negative Negative [facility] Ag [facility] Hepatitis B <10 mIU/mL [facility] Surface Ab [facility] Comment: Reference Range: <10 mIU/mL ? Non-Immune >=10 mIU/mL ?Immune The magnitude of the measured result abo ve 10 mIU/mL is not indicative of the total amount of antibody present. Custom Exception Hep B Core Total Ab Negative Negative [...] ceived Time Location / / Volume Laterality 11/19/2020 11/20/2020 3:30 PM CDT Narrative [facility] - 11/20/2020 Unless otherwise specified, test(s) performed at: [facility], [address] [place] [address] MULTIMEDIA TECHNICIAN: Jacob Junior M.D. For any questions, please call customer service at FREQUENCY:OTHER Resulting Agency Comment Specimen source: Serum Darren Youssef MD LAB BLOOD ORDERABLES Performing Organization Address City/State/ZIP Code Phon e Number [facility] documented in this encounter Visit Diagnoses Not on filedocumented in this encounter
--- OUTSIDE RECORDS SUMMARY | 2022-04-17 14:31 | XMS_ITS | Encounter Summary ---
:1940 Author Organization [facility] Address [address] [place] [address] Care Team Providers Name Role Phone Unavailable Primary Care Provider Unavailable Encounter Details Date Type Department Care Team Description 10/08/2020 Treatment [facility] f Checo Jolly MD [address] [place] [address] [place] [address] [place], [place] [phone] Social History Tobacco Use Types Packs/Day Years Used Date Smoking Tobacco: Never Assessed Sex Assigned at Date Recorded Not on file documented as of this encounter Miscellaneous Notes Dialysis Note - Checo Sky MD - 10/08/2020 9:04 PM CDT Date: October 08, 2020 Patient Name: Korey Mackay : 1940 Chart #: [id number] Sex: M This patient was personally seen for a complete visit as part of routine monthly dialysis care. A review of the dialysis treatment, blood pressure, estimated dry weight and recent lab values was made. These were discussed with the patient and staff as necessary. AOC AADC OPERATIONS STAFF OFFICER: Checo Sky MD LOCATION: [facility] [phone] SCHEDULE: -W- 3rd Shift EDW: kg. DIALYZER: HD DURATION: NEEDLE SIZE: ANTICOAG: BATH: QB: ml/min QD: ml/min Subjective since his return from [place] he has had a pacer placed for [...] No sob eating well. Will go to [place] soon for the winter. 04/30/20. Pt feels well, denies sob, eating wlll, no new complaints. He decided against urology onsult for his gross hematuria. going to [place] on Thursday. Will show up there Thursday. 09/24/20 No new complaints at this time, Just back from [place]. Says he didn't get as many cramps in [place] Dry weight is a bit higher than [...] N18.6 Dependence on renal dialysis V45.11 Z99.2 Exam Respiratory - Clear to auscultation bilaterally. Cardiovascular - Regular rate. Regular rhythm. No murmur heard. Edema - No leg edema. Access - Medication List No medication list is available. Allergy List No allergy list is available. Medications reviewed and no changes were made. Treatment and Adequacy Assessment BUN mg/dL 92 (09/17/20) 72 (04/09/20) 61 (03/12/20) 60 (02/15/20) 58 (01/09/20) CREATININE (MG/DL) IN SER/PLAS mg/dL 10.76 (09/24/20) 10.43 (09/17/20) 10.04 (04/23/20) 10.10 (03/26/20) 9.47 (02/27/20) URR% % 72 (09/17/20) 72 (04/09/20) 74 (03/12/20) 73 (02/15/20) 74 (01/09/20) Dialysis is adequate. Achieves prescribed time - Yes Achieves prescribed frequency - Yes Vascular Access Assessment Type of access: Catheter Surgeon - [facility], Access center in [place]. Staff and patient report access is working well. Anemia Assessment WBC (BLOOD) x 103 cells/uL 7.3 (09/24/20) 6.3 (09/17/20) 6.0 (04/23/20) 6.4 (03/26/20) 6.8 (02/27/20) HGB g/dL 11.1 (10/01/20) 10.9 (09/24/20) 11.7 (09/17/20) 11.1 (04/23/20) 10.4 (04/09/20) PLATELETS x 103 cells/uL 116 (09/24/20) 120 (09/17/20) 155 (04/23/20) 134 (03/26/20) 143 (02/27/20) IRON SATURATION % 20 (09/24/20) 35 (09/17/20) 38 (04/23/20) 43 (03/26/20) 46 (02/27/20) FERRITIN ng/mL 386 (09/24/20) 355 (09/17/20) 687 (04/23/20) 705 (03/26/20) 723 (02/27/20) Hemoglobin is above goal. Iron Saturation is at goal. Ferritin is above goal. Will adjust MISTY and intravenous iron per protocol. Nutritional and Metabolic Assessment ALBUMIN (G/DL) g/dL 4.2 (09/24/20) 4.2 (09/17/20) 4.1 (04/23/20) 3.9 (03/26/20) 4.0 (02/27/20) SODIUM mEq/L 140 (09/24/20) 141 (09/17/20) 137 (04/23/20) 137 (03/26/20) 140 (02/27/20) POTASSIUM (MMOL/L) IN SER/PLAS mEq/L 4.1 (09/24/20) 3.9 (09/17/20) 4.4 (04/23/20) 4.4 (04/09/20) 4.6 (03/26/20) BICARBONATE (CO2) mEq/L 21 (09/24/20) 22 (09/17/20) 24 (04/23/20) 21 (03/26/20) 21 (02/27/20) Albumin is at goal. Encourage high-biological value protein intake. Oral Nutritional Supplement program. Potassium is at goal. Bicarbonate is at goal. Bone and Mineral Metabolism Assessment CALCIUM mg/dL 9.1 (10/01/20) 8.6 (09/17/20) 8.9 (04/09/20) 9.0 (03/12/20) 9.2 (02/10/20) CORRECTED CALCIUM mg/dL 9.1 (10/01/20) 8.6 (09/17/20) 9.0 (04/09/20) 9.0 (03/12/20) 9.4 (02/10/20) PHOSPHORUS mg/dL 4.4 (09/17/20) 4.3 (04/09/20) 3.7 (03/12/20) 4.3 (02/10/20) 4.4 (01/09/20) CA*PO4 CORRCTD Calc 37.8 (09/17/20) 38.7 (04/09/20) 33.3 (03/12/20) 40.4 (02/10/20) 40.0 (01/09/20) IPTH pg/mL 432 (09/17/20) 202 (03/12/20) 238 (12/12/19) Corrected Calcium is at goal. Phosphorous is at goal. Ca X P product is at goal. Intact PTH is at goal. Crimper Assembler will adjust binders and vitamin D per protocol and continue to provide dietary education. Cardiovascular Assessment Blood pressures reviewed and are acceptable. Intradialytic weight gains are appropriate. Estimated dry weight is appropriate. Transplant Status: Resuscitation Status Doing well on dialysis. Hgb is above goal, adjusting epo dose. as needed. Has now had a pacer placed. Pth is ok and phos also ok. . Adequacy is at goal Will refer to urology regarding the gross hematuria fistula developing using two needles.Line removed. Because of cramps and light headedness have raised dry weight. Had one episode of gross hematuria, none since. Have suggested he see urology. Checo Sky MD [ Signed And locked electronically On 10/08/2020 at 09:07:19 PM ] Transcribed: Checo Sky ( 10/08/2020 ) documented in this encounter Plan of Treatment Not on filedocumented as of this encounter Visit Diagnoses Not on filedocumented in this encounter
--- OUTSIDE RECORDS SUMMARY | 2022-04-17 14:31 | XMS_ITS | Encounter Summary ---
:1940 Author Organization [facility] Address [address] [place] [address] Care Team Providers Name Role Phone Unavailable Primary Care Provider Unavailable Encounter Details Date Type Department Care Team Description 12/12/2020 Orders Only [facility] O f Darren Escalante MD [address] [place] [address] [place], [place] [phone] (Wo rk) Social History Tobacco Use Types Packs/Day Years Used Date Smoking Tobacco: Never Assessed Sex Assigned at Date Recorded Not on file documented as of this encounter Plan of Treatment Not on filedocumented as of this encounter Procedures Procedure Name Priority Date/Time Associated Diagnosis Comme nts HD KINETICS Routine 12/12/2020 Results for thi s procedure are i n the results section . SPECIAL CHEMISTRY Routine 12/12/2020 Results fo r this procedure are i n the results section . POST CHEMISTRY Routine 12/12/2020 Results for t his procedure are i n the results section . IMMUNO CHEMISTRY Routine 12/12/2020 Results for this procedure are i n the results section . HEMATOLOGY Routine 12/12/2020 Results for thi s procedure are i n the results section . CHEMISTRY Routine 12/12/2020 Results for thi s procedure are i n the results section . CHEMISTRY Routine 12/12/2020 Results for thi s procedure are i n the results section . SPECTRA [place] LAB RESULTS Routine 12/12/2020 Resul ts for this procedure are i n the results section . documented in this encounter Results Spectra [place] Lab Results (12/12/2020) P athologist Signature eKt/V 1.27 [place] ([place]) spKt/V 1.47 [place] ([place]) Specimen (Source) Anatomical Location Collection Method / Collectio n Time Received Time / Laterality Volume 12/12/2020 12/12/2020 [place] Ordering Provider LAB BLOOD ORDERABLES Performing Organization Address City/State/ZIP Code Phon e Number [place] HD KINETICS (12/12/2020) P athologist Signature % Urea 72 65 - 80 % APS SPECTRA Reduction [facility] Specimen (Source) Anatomical Collection Method Collection Time Re ceived Time Location / / Volume Laterality 12/12/2020 12/13/2020 11:4 6 PM CDT Resulting Agency Comment Specimen source: Plasma Darren Youssef MD LAB BLOOD ORDERABLES Performing Organization Address City/[facility]/ZIP Code Phon e Number [facility]PS SPECTRA [facility] POST CHEMISTRY (12/12/2020) P athologist Signature BUN Post 13 6 - 19 APS SPECTRA Dialysis mg/dL [facility] Specimen (Source) Anatomical Collection Method Collection Time Re ceived Time Location / / Volume Laterality 12/12/2020 12/13/2020 11:4 5 PM CDT Narrative [facility]PS SPECTRA [facility] - 12/14/2020 Unless otherwise specified, test(s) performed at: [facility], [address] [place], [place] [id number] PARTS MANAGER: Jacob Junior M.D. For any questions, please call customer service at FREQUENCY:MONTHLY Resulting Agency Comment Specimen source: Plasma Darren Youssef MD LAB BLOOD ORDERABLES Performing Organization Address City/[facility]/ZIP Code Phon e Number [facility]RA [facility] (ABNORMAL) HEMATOLOGY (12/12/2020) Analysis Performed At Patho logist Time Signature WBC 6.08 4.80 - [facility]PS SPECTRA 10.80 [facility] 1000/mcL RBC 2.74 (L) 4.70 - APS SPECTRA 6.10 [facility] mill/mcL Hemoglobin 9.2 (L) 14.0 - APS SPECTRA 18.0 g/dL [facility] Hemoglobin x 3 27.6 (L) 42.0 - APS [facility]PECTRA 54.0 % [facility] Hematocrit 28.5 (L) 42.0 - APS SPECTRA 52.0 % [facility] MCV 104 (H) 80 - 100 A[facility] SPECTRA fl [facility] MCH 33.7 (H) 27.0 - APS [facility]PECTRA 31.0 pg [facility] MCHC 32.3 30.0 - APS SPECTRA 36.0 g/dL [facility] RDW 17.1 (H) 11.5 - APS SPECTRA 14.5 % [facility] Platelets 164 130 - 400 APS SPECTRA 1000/mcL [facility] Specimen (Source) Anatomical Collection Method Collection Time Re ceived Time Location / / Volume Laterality 12/12/2020 12/13/2020 2:52 PM CDT Narrative APS SPECTRA [facility] - 12/13/2020 Unless otherwise specified, test(s) performed at: [facility], [address] [place], [place] [id number] PARTS MANAGER: Jacob Junior M.D. For any questions, please call customer service at FREQUENCY:MONTHLY Resulting Agency Comment Specimen source: Blood Darren Youssef MD LAB BLOOD ORDERABLES Performing Organization Address City/[facility]/ZIP Code Phon e Number APS SPECTRA [facility] (ABNORMAL) Spectrae Chemistry (12/12/2020) P athologist Signature PTH 306 (H) 16 - 80 APS SPECTRA pg/mL [facility] Specimen (Source) Anatomical Collection Method Collection Time Re ceived Time Location / / Volume Laterality 12/12/2020 12/13/2020 2:36 PM CDT Narrative APS SPECTRA [facility] - 12/13/2020 Unless otherwise specified, test(s) performed at: [facility], [address] [place] [id number] PARTS MANAGER: Jacob Junior M.D. For any questions, please call customer service at FREQUENCY:MONTHLY Resulting Agency Comment Specimen source: Plasma Darren Youssef MD LAB BLOOD ORDERABLES Performing Organization Address City/State/ZIP Code Phon e Number [facility]PS SPECTRA [facility] IMMUNO CHEMISTRY (12/12/2020) P athologist Signature Hep B Surface Negative Negative APS SPECTRA Ag [facility] Specimen (Source) Anatomical Collection Method Collection Time Re ceived Time Location / / Volume Laterality 12/12/2020 12/13/2020 11:3 4 AM CDT Resulting Agency Comment Specimen source: Serum Darren Youssef MD LAB BLOOD ORDERABLES Performing Organization Address City/State/ZIP Code Phon e Number APS SPECTRA [facility] SPECIAL CHEMISTRY (12/12/2020) P athologist Signature Vitamin D, 71.8 30.0 - APS SPECTRA 25-OH, Total 100.0 [facility] ng/mL Comment: Vitamin D Status Classification: Deficiency ? <10.0 ng/mL Insufficiency ?10.0-30.0 ng/mL Sufficiency ?30.0-100.0 ng/mL Toxicity ? >100.0 ng/mL Specimen (Source) Anatomical Collection Method Collection Time Re ceived Time Location / / Volume Laterality 12/12/2020 12/13/2020 11:3 4 AM CDT Resulting Agency Comment Specimen source: Serum Darren Youssef MD LAB BLOOD BANK TEST ORDERABL ES Performing Organization Address City/[facility] Code Phon e Number APS SPECTRA [facility] (ABNORMAL) Spectrae Chemistry (12/12/2020) Patholo gist Method Time Signature BUN 46 (H) 6 - 19 APS SPECTRA mg/dL [facility] Creatinine 8.40 (H) 0.60 - APS SPECTRA 1.30 mg/dL [facility] BUN/Creatinine 5.5 (L) 10.0 - APS SPECTRA Ratio 20.0 [facility] Sodium 139 136 - 145 APS SPECTRA mEq/L [facility] Potassium 3.9 3.5 - 5.1 APS SPECTRA mEq/L [facility] Chloride 97 96 - 108 APS SPECTRA mEq/L [facility] Bicarbonate 26 22 - 29 APS SPECTRA (CO2) mEq/L [facility] Calcium 9.2 8.4 - 10.2 APS SPECTRA mg/dL [facility] Corrected 9.4 8.4 - 10.2 APS SPECTRA Calcium mg/dL [facility] Comment: Corrected Calcium is not equivalent to m easured Ionized Calcium. Phosphorus 4.9 (H) 2.6 - 4.5 mg/dL APS SPECTRA K [facility] Calcium Phosphorus Product 45 0 - 54 APS SPECTRA [facility] Calcium Phosporus Product, Cor 46 0 - 54 APS SPECTRA [facility] Alkaline Phosphatase 67 40 - 129 U/L APS SP ECTRA [facility] Total Protein 7.1 6.0 - 8.5 g/dL APS SPECTRA [facility] Albumin 3.7 3.5 - 5.2 g/dL [facility]PS [facility]RA [facility] [place] Globulin, Total 3.4 2.0 - 4.0 g/dL APS SPECT RA [facility] A/G Ratio 1.1 1.0 - 2.0 APS SPECTRA [facility] Magnesium 2.1 1.6 - 2.6 mg/dL APS SPECTRA [place] [facility] Iron 76 45 - 160 mcg/dL APS SPECTRA [place] [facility] UIBC 167 155 - 355 mcg/dL APS SPECTRA K [facility] TIBC 243 185 - 515 mcg/dL APS SPECTRA K [facility] Iron Saturation (TSat) 31 20 - 55 % APS SPE CTRA [facility] Ferritin 608 (H) 22 - 322 ng/mL APS SPECTRA [facility] Specimen (Source) Anatomical Collection Method Collection Time Re ceived Time Location / / Volume Laterality 12/12/2020 12/13/2020 11:3 4 AM CDT Narrative APS SPECTRA [facility] - 12/13/2020 Unless otherwise specified, test(s) performed at: [facility], [address] [place] [id number] PARTS MANAGER: Jacob Junior M.D. For any questions, please call customer service at FREQUENCY:MONTHLY Resulting Agency Comment Specimen source: Serum Darren Youssef MD LAB BLOOD ORDERABLES Performing Organization Address City/State/ZIP Code Phon e Number APS SPECTRA [facility] documented in this encounter Visit Diagnoses Not on filedocumented in this encounter
--- OUTSIDE RECORDS SUMMARY | 2022-04-17 14:32 | XMS_ITS | Encounter Summary ---
:1940 Author Organization [facility] Address [address] [place] [address] Care Team Providers Name Role Phone Unavailable Primary Care Provider Unavailable Encounter Details Date Type Department Care Team Description 01/09/2020 Orders Only [facility] O f Checo Jolly MD [address] [facility]3] [address] [place] [address] [place] [address] Social History Tobacco Use Types Packs/Day Years Used Date Smoking Tobacco: Never Assessed Sex Assigned at Date Recorded Not on file documented as of this encounter Plan of Treatment Not on filedocumented as of this encounter Procedures Procedure Name Priority Date/Time Associated Comments Diagnosis MONTHLY HD W/O CA/PH Routine 01/23/2020 10:45 AM Results for this (HC) CDT procedure are i n the results section. IRON PANEL (FE, Routine 01/23/2020 10:45 AM Resul ts for this TIBC, TSAT) CDT procedure are i n the results section. HEPATITIS B SURFACE Routine 01/23/2020 10:45 AM R esults for this ANTIGEN CDT procedure are i n the results section. ALT Routine 01/23/2020 10:45 AM Results for this CDT procedure are i n the results section. SODIUM Routine 01/23/2020 10:45 AM Results for this CDT procedure are i n the results section. GLUCOSE, RANDOM Routine 01/23/2020 10:45 AM Resul ts for this CDT procedure are i n the results section. FERRITIN Routine 01/23/2020 10:45 AM Results for this CDT procedure are i n the results section. CREATININE, SERUM Routine 01/23/2020 10:45 AM Res ults for this CDT procedure are i n the results section. WOJCIECH/PHOS W/RATI (HC) Routine 01/09/2020 10:45 AM Results for this CDT procedure are i n the results section. KT/V DAUGIRDAS (HC) Routine 01/09/2020 10:45 AM R esults for this CDT procedure are i n the results section. HCT CALC HGBX3 (HC) Routine 01/09/2020 10:45 AM R esults for this CDT procedure are i n the results section. HEMOGLOBIN Routine 01/09/2020 10:45 AM Results for this CDT procedure are i n the results section. POTASSIUM Routine 01/09/2020 10:45 AM Results for this CDT procedure are i n the results section. documented in this encounter Results ALT (01/23/2020 10:45 AM CDT) P athologist Signature ALT (SGPT) 12 10 - 49 U/L APS DAVITA [facility] Specimen Anatomical Collection Method Collection Time Receive d Time (Source) Location / / Volume Laterality 01/23/2020 10:45 01/24/2020 AM CDT 10:21 AM CDT Checo Sky MD LAB BLOOD ORDERABLES Performing Organization Address City/[facility]/ZIP Code Phon e Number APS DAVITA [facility] (ABNORMAL) Glucose, random (01/23/2020 10:45 AM CDT) P athologist Signature Glucose 144 (H) 70 - 99 APS DAVITA mg/dL [facility] Specimen Anatomical Collection Method Collection Time Receive d Time (Source) Location / / Volume Laterality 01/23/2020 10:45 01/24/2020 AM CDT 10:21 AM CDT Checo Sky MD LAB BLOOD ORDERABLES Performing Organization Address City/State/ZIP Code Phon e Number APS DAVITA [facility] (ABNORMAL) Creatinine, serum (01/23/2020 10:45 AM CDT) P athologist Signature Creatinine 10.03 (H) 0.70 - APS DAVITA 1.30 mg/dL [facility] Specimen Anatomical Collection Method Collection Time Receive d Time (Source) Location / / Volume Laterality 01/23/2020 10:45 01/24/2020 AM CDT 10:21 AM CDT Checo Sky MD LAB BLOOD ORDERABLES Performing Organization Address City/State/ZIP Code Phon e Number APS DAVITA [facility] Sodium (01/23/2020 10:45 AM CDT) P athologist Signature Sodium 138 132 - 146 APS DAVITA mEq/L [facility] Specimen Anatomical Collection Method Collection Time Receive d Time (Source) Location / / Volume Laterality 01/23/2020 10:45 01/24/2020 AM CDT 10:21 AM CDT Checo Sky MD LAB BLOOD ORDERABLES Performing Organization Address [facility]/ZIP Code Phon e Number APS DAVITA [facility] Hepatitis B Surface Antigen (01/23/2020 10:45 AM CDT) P athologist Signature Hep B Surface NEG -NEG APS DAVITA Antigen [facility] Comment: This test utilizes Biotin (Vitamin B7) a s one of it's reagents. Testing may be interfered with in patients consuming Bi otin supplements. Please factor this when reviewing results. Specimen Anatomical Collection Method Collection Time Receive d Time (Source) Location / / Volume Laterality 01/23/2020 10:45 01/24/2020 AM CDT 10:21 AM CDT Checo Sky MD LAB BLOOD ORDERABLES Performing Organization Address City/[facility]/ZIP Code Phon e Number APS DAVITA [facility] (ABNORMAL) Ferritin (01/23/2020 10:45 AM CDT) P athologist Signature Ferritin 768 (H) 22 - 322 APS DAVITA ng/mL [facility] Specimen Anatomical Collection Method Collection Time Receive d Time (Source) Location / / Volume Laterality 01/23/2020 10:45 01/24/2020 AM CDT 10:21 AM CDT Checo Sky MD LAB BLOOD ORDERABLES Performing Organization Address [facility] Code Phon e Number APS DAVITA [facility] (ABNORMAL) Iron Panel (Fe, TIBC, TSAT) (01/23/2020 10:45 AM CDT) P athologist Signature Iron 76 65 - 175 APS DAVITA ug/dL [facility] TIBC 225 (L) 250 - 425 APS DAVITA ug/dL [facility] UIBC 149 75 - 360 APS DAVITA ug/dL [facility] Iron Saturation 34 21 - 49 % APS DAVITA (TSat) [facility] Specimen Anatomical Collection Method Collection Time Receive d Time (Source) Location / / Volume Laterality 01/23/2020 10:45 01/24/2020 AM CDT 10:21 AM CDT Checo Sky MD LAB BLOOD ORDERABLES Performing Organization Address City/State/ZIP Code Phon e Number APS DAVITA [facility] (ABNORMAL) MONTHLY HD W/O CA/PH (01/23/2020 10:45 AM CDT) [facility] Method Time Signature Potassium 4.6 3.5 - 5.5 APS DAVITA mEq/L [facility] Chloride 98 (L) 99 - 109 APS DAVITA mEq/L [facility] Bicarbonate 27 20 - 31 APS DAVITA (CO2) mEq/L [facility] Protein, Total 7.0 5.7 - 8.2 APS DAVITA g/dL [facility] Albumin 3.8 3.2 - 4.8 APS DAVITA g/dL [facility] AST (SGOT) 14 0 - 34 APS DAVITA U/L [facility] LDH 166 120 - 246 APS DAV[facility] U/L [facility] Alkaline 82 46 - 116 APS [facility] Phosphatase U/L [facility] WBC 6.0 4.5 - APS DAVITA 11.0 x [facility] 10'3 cells/uL RBC 3.13 (L) 4.60 - APS DAVITA 6.20 x [facility] 10'6 cells/uL Hgb 10.4 (L) 14.0 - APS DAVITA 18.0 g/dL [facility] Hematocrit 31.5 (L) 42.0 - APS DAVITA 52.0 % [facility] Hemoglobin x 3 31.2 (L) 42.0 - APS DAVITA 52.0 % [facility] MCV 100.6 (H) 80.0 - APS DAVITA 100.0 fL [facility] MCH 33.1 (H) 27.0 - APS DAVITA 31.0 pg [facility] MCHC 32.9 32.0 - APS DAVITA 36.0 g/dL [facility] RDW 13.5 11.0 - APS DAVITA 15.0 % [facility] Platelets 132 (L) 150 - 400 APS DAVITA x 10'3 [facility] cells/uL Neutrophils % 72.8 % APS DAVITA Auto [facility] Lymphocytes 14.8 % APS DAVITA Manual [facility] Monocytes Manual 7.7 % APS DAVITA [facility] Eosinophil % 5.4 % APS DAVITA [facility] Basophils 0.4 % APS DAVITA Relative [facility] Neutrophils 4,331.60 2,000 - APS DAVITA Absolute 8,800 [facility] Cell/uL Lymphocytes 880.60 (L) 1,100 - APS DAVITA Absolute 4,800 [facility] Cell/uL Monocytes 458.15 0 - 1,100 APS DAVITA Absolute Cell/uL [facility] Eosinophils 321.30 0 - 700 APS DAVITA Absolute Cell/uL [facility] Basophils 23.80 0 - 400 APS DAVITA Absolute Cell/uL [facility] Comment: Diff percentage results will continue to be reported but without reference ranges per CAP guidelines and will not b e flagged as normal or abnormal. Absolute concentrations of circulating W BC are the preferable method of reporting and will continue to be evalua fareed against established reference ranges. Globulin 3.2 0.9 - 5 g/dL APS DAVITA [facility] A/G Ratio 1.2 1 - 2.5 Calc APS DAVITA [facility] Specimen Anatomical Collection Method Collection Time Receive d Time (Source) Location / / Volume Laterality 01/23/2020 10:45 01/24/2020 AM CDT 10:21 AM CDT Checo Sky MD LAB [id number] NSOLICITED RESULTS Performing Organization Address City/State/ZIP Code Phon e Number APS DAVITA [facility] (ABNORMAL) HCT CALC HGBX3 (01/09/2020 10:45 AM CDT) Analysis Performed At Patho logist Time Signature Hemoglobin x 3 34.2 (L) 42.0 - APS DAVITA 52.0 % [facility] Specimen Anatomical Collection Method Collection Time Receive d Time (Source) Location / / Volume Laterality 01/09/2020 10:45 01/10/2020 8:45 AM CDT PM CDT Checo Sky MD LAB [id number] NSOLICITED RESULTS Performing Organization Address City/State/ZIP Code Phon e Number APS DAVITA [facility] Potassium (01/09/2020 10:45 AM CDT) P athologist Signature Potassium 4.4 3.5 - 5.5 APS DAVITA mEq/L [facility] Specimen Anatomical Collection Method Collection Time Receive d Time (Source) Location / / Volume Laterality 01/09/2020 10:45 01/10/2020 8:45 AM CDT PM CDT Checo Sky MD LAB BLOOD ORDERABLES Performing Organization Address City/State/ZIP Code Phon e Number APS DAVIRENE [facility] (ABNORMAL) Hemoglobin (01/09/2020 10:45 AM CDT) P athologist Signature Hgb 11.4 (L) 14.0 - 18.0 APS DAVITA g/dL [facility] Specimen Anatomical Collection Method Collection Time Receive d Time (Source) Location / / Volume Laterality 01/09/2020 10:45 01/10/2020 8:45 AM CDT PM CDT Checo Sky MD LAB BLOOD ORDERABLES Performing Organization Address City/State/ZIP Code Phon e Number APS DAVITA [facility] (ABNORMAL) KT/V DAUGIRDAS (01/09/2020 10:45 AM CDT) athologist Signature BUN 58 (H) 9 - 23 APS DAVITA mg/dL [facility] BUN Post 15 9 - 23 APS DAVITA Dialysis mg/dL [facility] URR% 74 65 - 100 % APS DAVITA [facility] Specimen Anatomical Collection Method Collection Time Receive d Time (Source) Location / / Volume Laterality 01/09/2020 10:45 01/10/2020 8:45 AM CDT PM CDT Checo Sky MD LAB [id number] NSOLICITED RESULTS Performing Organization Address City/State/ZIP Code Phon e Number APS DAVITA [facility] WOJCIECH/PHOS W/RATI (01/09/2020 10:45 AM CDT) P athologist Signature Calcium 8.9 8.7 - 10.4 APS DAVITA mg/dL [facility] Phosphorus, 4.4 2.4 - 5.1 APS DAVITA Serum mg/dL [facility] CA/PHOS PRODUCT 39.2 21 - 53 APS DAVITA Calc [facility] Corrected 9.1 8.7 - 10.4 APS DAVITA Calcium mg/dL [facility] CA*PO4 CORRCTD 40.0 21 - 53 APS DAVITA Calc [facility] Specimen Anatomical Collection Method Collection Time Receive d Time (Source) Location / / Volume Laterality 01/09/2020 10:45 01/10/2020 8:45 AM CDT PM CDT Checo Sky MD LAB [id number] NSOLICITED RESULTS Performing Organization Address City/State/ZIP Code Phon e Number APS DAVITA [facility] documented in this encounter Visit Diagnoses Not on filedocumented in this encounter
--- OUTSIDE RECORDS SUMMARY | 2022-04-17 14:32 | XMS_ITS | Encounter Summary ---
:1940 Author Organization [facility] Address [address] [place] [address] Care Team Providers Name Role Phone Unavailable Primary Care Provider Unavailable Encounter Details Date Type Department Care Team Description 01/02/2020 Treatment [facility] O f Checo Jolly MD [address] [place] [address] [place] [address] [place], [place] [phone] Social History Tobacco Use Types Packs/Day Years Used Date Smoking Tobacco: Never Assessed Sex Assigned at Date Recorded Not on file documented as of this encounter Miscellaneous Notes Dialysis Note - Checo Sky MD - 01/02/2020 2:12 PM CDT Date: Jan 02, 2020 Patient Name: Korey Mackay : 1940 Chart #: [id number] Sex: M This patient was personally seen for a basic visit as part of routine weekly dialysis care. A reviewof the dialysis treatment, blood pressure, estimated dry weight and recent lab values was made. These were discussed with the patient and staff as necessary. ENGINEERING AND SCIENTIFIC PROGRAMMER: Checo Sky MD LOCATION: [place] [phone] SCHEDULE: -W- 3rd Shift ACCESS: EDW: kg. DIALYZER: HD DURATION: NEEDLE SIZE: ANTICOAG: BATH: QB: ml/min QD: ml/min Subjective He is recently back from [place] where he spent the winter. he did not like his experience there in the unit. Since his return he has had a pacer placed. He presented with a fever since his return and was referred to a PUI unit. As it turns out he had anabscess on his buttock which is being treated now with oral antibiotics. He had two negative tests for Covid 19 and was readmitted. Feeling well at the time of this visit. Main complaint is fatigue after dialysis, Says it has been especially bad recently. He denies other sx. Denies dizziness or sob. Also denies any pain. Had pacer placed recently and says he is more alert and seems stronger since but still has significant fatigue after dialysis. BP's are quite stable on the run with no significant hypotensive spells. Advanced Practitioner Subjective: Fatigue. 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 Cardiovascular Regular rate. Regular rhythm. No murmur heard. Edema - No leg edema. Looks comfortable today, Not sob, alert and oriented times 3. He is in no respiratory distress. Hardof hearing. Medication List No medication list is available. Allergy List No allergy list is available. Medications reviewed and no changes were made. BUN mg/dL 46 (12/21/19) 59 (12/19/19) 64 (12/12/19) 61 (11/16/19) 72 (11/07/19) CREATININE (MG/DL) IN SER/PLAS mg/dL 9.95 (12/26/19) 10.18 (11/21/19) 10.39 (10/24/19) 11.34 (09/26/19) 10.94 (09/12/19) URR% % 72 (12/21/19) 73 (12/19/19) See Below (12/12/19) 70 (11/16/19) 71 (11/07/19) KT/V, DAUGIRDAS II (CALC) TNP (02/21/19) WBC (BLOOD) x 103 cells/uL 7.3 (12/26/19) 6.2 (11/21/19) 6.2 (10/24/19) 6.4 (09/26/19) 9.4 (09/12/19) HGB g/dL 10.9 (12/26/19) 11.0 (12/12/19) 10.5 (11/21/19) 11.1 (11/14/19) 11.8 (11/07/19) PLATELETS x 103 cells/uL 160 (12/26/19) 149 (11/21/19) 144 (10/24/19) 151 (09/26/19) 134 (09/12/19) IRON SATURATION % 42 (12/26/19) 30 (11/21/19) 29 (10/24/19) 21 (09/26/19) 23 (09/12/19) FERRITIN ng/mL 622 (12/26/19) 657 (11/21/19) 462 (10/24/19) 364 (09/26/19) 543 (09/12/19) ALBUMIN (G/DL) g/dL 3.8 (12/26/19) 3.9 (11/21/19) 3.9 (10/24/19) 3.7 (09/26/19) 3.9 (09/12/19) SODIUM mEq/L 138 (12/26/19) 136 (11/21/19) 138 (10/24/19) 142 (09/26/19) 140 (09/12/19) POTASSIUM (MMOL/L) IN SER/PLAS mEq/L 4.9 (12/26/19) 4.3 (12/12/19) 4.2 (11/21/19) 4.7 (11/07/19) 4.4 (10/24/19) BICARBONATE (CO2) mEq/L 25 (12/26/19) 24 (11/21/19) 21 (10/24/19) 25 (09/26/19) 19 (09/12/19) CALCIUM mg/dL 9.0 (12/12/19) 8.7 (11/07/19) 8.6 (10/12/19) 9.0 (09/12/19) 9.0 (05/09/19) CORRECTED CALCIUM mg/dL 9.1 (12/12/19) 8.8 (11/07/19) 8.8 (10/12/19) 9.1 (09/12/19) 9.0 (05/09/19) PHOSPHORUS mg/dL 4.2 (12/12/19) 4.5 (12/05/19) 5.8 (11/21/19) 5.7 (11/07/19) 5.1 (10/12/19) CA*PO4 CORRCTD Calc 38.2 (12/12/19) 50.2 (11/07/19) 44.9 (10/12/19) 23.7 (09/12/19) 45.9 (05/09/19) IPTH pg/mL 238 (12/12/19) 121 (09/12/19) 226 (03/14/19) CALCIUM mg/dL 9.0 (12/12/19) 8.7 (11/07/19) 8.6 (10/12/19) 9.0 (09/12/19) 9.0 (05/09/19) CA/PHOS PRODUCT Calc 37.8 (12/12/19) 49.6 (11/07/19) 43.9 (10/12/19) 23.4 (09/12/19) 45.9 (05/09/19) CORRECTED CALCIUM mg/dL 9.1 (12/12/19) 8.8 (11/07/19) 8.8 (10/12/19) 9.1 (09/12/19) 9.0 (05/09/19) PHOSPHORUS mg/dL 4.2 (12/12/19) 4.5 (12/05/19) 5.8 (11/21/19) 5.7 (11/07/19) 5.1 (10/12/19) IPTH pg/mL 238 (12/12/19) 121 (09/12/19) 226 (03/14/19) Vascular Access Assessment: Type of access: Catheter Surgeon - [facility], Access center in [place]. Staff and patient report access is working well. Impression and Plan Stable on dialysis Phos pth are at goal. Hgb is at goal Alb is a little below goal. says he is eating well . he is getting liquicel here. More alert and stronger since pacer, though still gets very fatigued after dialysis. Phos is at goal He is not on a binder. Now using access, Doing well on dialysis. Checo Sky MD [ Signed And locked electronically On 01/05/2020 at 02:20:10 PM ] Transcribed: Checo Sky ( 01/05/2020 ) documented in this encounter Plan of Treatment Not on filedocumented as of this encounter Visit Diagnoses Not on filedocumented in this encounter
--- OUTSIDE RECORDS SUMMARY | 2022-04-17 14:32 | XMS_ITS | Encounter Summary ---
:1940 Author Organization [facility] Address [address] [place] [address] Care Team Providers Name Role Phone Unavailable Primary Care Provider Unavailable Encounter Details Date Type Department Care Team Description 01/13/2020 Treatment [facility] f Checo Jolly MD [address] [place] [address] [place] [address] [place], [place] [phone] Social History Tobacco Use Types Packs/Day Years Used Date Smoking Tobacco: Never Assessed Sex Assigned at Date Recorded Not on file documented as of this encounter Miscellaneous Notes Dialysis Note - Checo Sky MD - 01/13/2020 12:39 PM CDT Date: Jan 13, 2020 Patient Name: Korey Mackay : 1940 Chart #: [id number] Sex: M This patient was personally seen for a complete visit as part of routine monthly dialysis care. A review of the dialysis treatment, blood pressure, estimated dry weight and recent lab values was made. These were discussed with the patient and staff as necessary. PROTECTIVE SIGNAL OPERATIONS SUPERVISOR: Checo Sky MD LOCATION: [place] [phone] SCHEDULE: -W- 3rd Shift EDW: kg. DIALYZER: HD DURATION: NEEDLE SIZE: ANTICOAG: BATH: QB: ml/min QD: ml/min Subjective He is recently back from [place] where he spent the winter. he did [...] with no significant hypotensive spells. Advanced Practitioner Subjective Review of Systems Fatigue. [...] Treatment and Adequacy Assessment BUN mg/dL 58 (01/09/20) 46 (12/21/19) 59 (12/19/19) 64 (12/12/19) 61 (11/16/19) CREATININE (MG/DL) IN SER/PLAS mg/dL 9.95 (12/26/19) 10.18 (11/21/19) 10.39 (10/24/19) 11.34 (09/26/19) 10.94 (09/12/19) URR% % 74 (01/09/20) 72 (12/21/19) 73 (12/19/19) See Below (12/12/19) 70 (11/16/19) KT/V, DAUGIRDAS II (CALC) TNP (02/21/19) Dialysis is adequate. Achieves prescribed time - Yes Achieves prescribed frequency - Yes Vascular Access Assessment Type of access: Catheter Surgeon - [facility], Access center in [place]. Staff and patient report access is working well. Anemia Assessment WBC (BLOOD) x 103 cells/uL 7.3 (12/26/19) 6.2 (11/21/19) 6.2 (10/24/19) 6.4 (09/26/19) 9.4 (09/12/19) HGB g/dL 11.4 (01/09/20) 10.9 (12/26/19) 11.0 (12/12/19) 10.5 (11/21/19) 11.1 (11/14/19) PLATELETS x 103 cells/uL 160 (12/26/19) 149 (11/21/19) 144 (10/24/19) 151 (09/26/19) 134 (09/12/19) IRON SATURATION % 42 (12/26/19) 30 (11/21/19) 29 (10/24/19) 21 (09/26/19) 23 (09/12/19) FERRITIN ng/mL 622 (12/26/19) 657 (11/21/19) 462 (10/24/19) 364 (09/26/19) 543 (09/12/19) Hemoglobin is at goal. Iron Saturation is at goal. Ferritin is above goal. Will adjust MISTY and intravenous iron per protocol. Nutritional and Metabolic Assessment ALBUMIN (G/DL) g/dL 3.8 (12/26/19) 3.9 (11/21/19) 3.9 (10/24/19) 3.7 (09/26/19) 3.9 (09/12/19) SODIUM mEq/L 138 (12/26/19) 136 (11/21/19) 138 (10/24/19) 142 (09/26/19) 140 (09/12/19) POTASSIUM (MMOL/L) IN SER/PLAS mEq/L 4.4 (01/09/20) 4.9 (12/26/19) 4.3 (12/12/19) 4.2 (11/21/19) 4.7 (11/07/19) BICARBONATE (CO2) mEq/L 25 (12/26/19) 24 (11/21/19) 21 (10/24/19) 25 (09/26/19) 19 (09/12/19) Albumin is below goal. Encourage high-biological value protein intake. Oral Nutritional Supplement program. Potassium is at goal. Bicarbonate is at goal. Bone and Mineral Metabolism Assessment CALCIUM mg/dL 8.9 (01/09/20) 9.0 (12/12/19) 8.7 (11/07/19) 8.6 (10/12/19) 9.0 (09/12/19) CORRECTED CALCIUM mg/dL 9.1 (01/09/20) 9.1 (12/12/19) 8.8 (11/07/19) 8.8 (10/12/19) 9.1 (09/12/19) PHOSPHORUS mg/dL 4.4 (01/09/20) 4.2 (12/12/19) 4.5 (12/05/19) 5.8 (11/21/19) 5.7 (11/07/19) CA*PO4 CORRCTD Calc 40.0 (01/09/20) 38.2 (12/12/19) 50.2 (11/07/19) 44.9 (10/12/19) 23.7 (09/12/19) IPTH pg/mL 238 (12/12/19) 121 (09/12/19) 226 (03/14/19) Corrected Calcium is at goal. Phosphorous is at goal. Ca X P product is at goal. Intact PTH is at goal. Purchasing Associate will adjust binders and vitamin D per protocol and continue to provide dietary education. Cardiovascular Assessment Blood pressures reviewed and are acceptable. Intradialytic weight gains are appropriate. Estimated dry weight is too low, will increase. Dry wt may be too low will cautiously adjust. I wonder if this may have something to do with how he feels after dialysis. Transplant Status: Resuscitation Status Doing well on dialysis. Hgb is at goal, adjusting epo dose. as needed. Has now had a pacer placed. Replaced lead yesterdaty Pth is ok and phos also ok. . Adequacy is at goal fistula developing using two needles.Line removed. Checo Sky MD [ Signed And locked electronically On 01/13/2020 at 12:42:13 PM ] Transcribed: Checo Sky ( 01/13/2020 ) documented in this encounter Plan of Treatment Not on filedocumented as of this encounter Visit Diagnoses Not on filedocumented in this encounter
--- OUTSIDE RECORDS SUMMARY | 2022-04-17 14:32 | XMS_ITS | Encounter Summary ---
:1940 Author Organization [facility] Address [address] [place] [address] Care Team Providers Name Role Phone Unavailable Primary Care Provider Unavailable Encounter Details Date Type Department Care Team Description 02/20/2020 Treatment [facility] f Checo Jolly MD [address] [place] [address] [place] [address] [place], [place] [phone] Social History Tobacco Use Types Packs/Day Years Used Date Smoking Tobacco: Never Assessed Sex Assigned at Date Recorded Not on file documented as of this encounter Miscellaneous Notes Dialysis Note - Checo Sky MD - 02/20/2020 1:17 PM CDT Date: Feb 20, 2020 Patient Name: Korey Mackay : 1940 Chart #: [id number] Sex: M This patient was personally seen for a complete visit as part of routine monthly dialysis care. A review of the dialysis treatment, blood pressure, estimated dry weight and recent lab values was made. These were discussed with the patient and staff as necessary. TUBE AND MANIFOLD BUILDER: Checo Sky MD LOCATION: [place] [phone] SCHEDULE: -W- 3rd Shift EDW: kg. DIALYZER: HD DURATION: NEEDLE SIZE: ANTICOAG: BATH: QB: ml/min QD: ml/min Subjective since his return from [place] he has had a pacer placed fro bradycardia. He presented with a fever since his return and was referred to a PUI unit. As it turns out he had anabscess on his buttock which was treated and has now resolved. He had two negative tests for Covid 19 and was readmitted. Feeling well at the time of this visit. Main complaint is fatigue after dialysis, says he is doing well. He complains of feeling his pacemaker in the left lower abd when lying on his right side. Says he has been back to the cardiology clinic twice for this. He denies other sx. Denies dizziness or sob. Also denies any pain. since the pacer placed, his says he is more alert and seems stronger s but still has significant fatigue after dialysis. BP's arequite stable on the run with no significant hypotensive spells. He did recently fall and hurt his hip. No fracture. he is having physical therapy. No other complaints. Advanced Practitioner Subjective Review of Systems Fatigue. [...] made. Treatment and Adequacy Assessment BUN mg/dL 60 (02/15/20) 58 (01/09/20) 46 (12/21/19) 59 (12/19/19) 64 (12/12/19) CREATININE (MG/DL) IN SER/PLAS mg/dL 10.03 (01/23/20) 9.95 (12/26/19) 10.18 (11/21/19) 10.39 (10/24/19) 11.34 (09/26/19) URR% % 73 (02/15/20) 74 (01/09/20) 72 (12/21/19) 73 (12/19/19) See Below (12/12/19) KT/V, DAUGIRDAS II (CALC) TNP (02/21/19) Dialysis is adequate. Achieves prescribed time - Yes Achieves prescribed frequency - Yes Vascular Access Assessment Type of access: Catheter Surgeon - [facility], Access center in [place]. Staff and patient report access is working well. Anemia Assessment WBC (BLOOD) x 103 cells/uL 6.0 (01/23/20) 7.3 (12/26/19) 6.2 (11/21/19) 6.2 (10/24/19) 6.4 (09/26/19) HGB g/dL 10.5 (02/10/20) 10.4 (01/23/20) 11.4 (01/09/20) 10.9 (12/26/19) 11.0 (12/12/19) PLATELETS x 103 cells/uL 132 (01/23/20) 160 (12/26/19) 149 (11/21/19) 144 (10/24/19) 151 (09/26/19) IRON SATURATION % 34 (01/23/20) 42 (12/26/19) 30 (11/21/19) 29 (10/24/19) 21 (09/26/19) FERRITIN ng/mL 768 (01/23/20) 622 (12/26/19) 657 (11/21/19) 462 (10/24/19) 364 (09/26/19) Hemoglobin is at goal. Iron Saturation is at goal. Ferritin is above goal. Will adjust MISTY and intravenous iron per protocol. Nutritional and Metabolic Assessment ALBUMIN (G/DL) g/dL 3.8 (01/23/20) 3.8 (12/26/19) 3.9 (11/21/19) 3.9 (10/24/19) 3.7 (09/26/19) SODIUM mEq/L 138 (01/23/20) 138 (12/26/19) 136 (11/21/19) 138 (10/24/19) 142 (09/26/19) POTASSIUM (MMOL/L) IN SER/PLAS mEq/L 4.6 (02/10/20) 4.6 (01/23/20) 4.4 (01/09/20) 4.9 (12/26/19) 4.3 (12/12/19) BICARBONATE (CO2) mEq/L 27 (01/23/20) 25 (12/26/19) 24 (11/21/19) 21 (10/24/19) 25 (09/26/19) Albumin is below goal. Encourage high-biological value protein intake. Oral Nutritional Supplement program. Potassium is at goal. Bicarbonate is at goal. Bone and Mineral Metabolism Assessment CALCIUM mg/dL 9.2 (02/10/20) 8.9 (01/09/20) 9.0 (12/12/19) 8.7 (11/07/19) 8.6 (10/12/19) CORRECTED CALCIUM mg/dL 9.4 (02/10/20) 9.1 (01/09/20) 9.1 (12/12/19) 8.8 (11/07/19) 8.8 (10/12/19) PHOSPHORUS mg/dL 4.3 (02/10/20) 4.4 (01/09/20) 4.2 (12/12/19) 4.5 (12/05/19) 5.8 (11/21/19) CA*PO4 CORRCTD Calc 40.4 (02/10/20) 40.0 (01/09/20) 38.2 (12/12/19) 50.2 (11/07/19) 44.9 (10/12/19) IPTH pg/mL 238 (12/12/19) 121 (09/12/19) 226 (03/14/19) Corrected Calcium is at goal. Phosphorous is at goal. Ca X P product is at goal. Intact PTH is at goal. Polarity Tester will adjust binders and vitamin D per [...] MD [ Signed And locked electronically On 02/20/2020 at 01:23:38 PM ] Transcribed: Checo Sky ( 02/20/2020 ) documented in this encounter Plan of Treatment Not on filedocumented as of this encounter Visit Diagnoses Not on filedocumented in this encounter
--- OUTSIDE RECORDS SUMMARY | 2022-04-17 14:32 | XMS_ITS | Encounter Summary ---
:1940 Author Organization [facility] Address [address] [place] [address] Care Team Providers Name Role Phone Unavailable Primary Care Provider Unavailable Encounter Details Date Type Department Care Team Description 02/10/2020 Orders Only [facility] f Checo Jolly MD [address] [place] [address] [place] [address] Social History Tobacco Use Types Packs/Day Years Used Date Smoking Tobacco: Never Assessed Sex Assigned at Date Recorded Not on file documented as of this encounter Plan of Treatment Not on filedocumented as of this encounter Procedures Procedure Name Priority Date/Time Associated Comments Diagnosis MONTHLY HD W/O CA/PH Routine 02/27/2020 10:45 AM Results for this (HC) CDT procedure are i n the results section. IRON PANEL (FE, Routine 02/27/2020 10:45 AM Resul ts for this TIBC, TSAT) CDT procedure are i n the results section. HEPATITIS B SURFACE Routine 02/27/2020 10:45 AM R esults for this ANTIGEN CDT procedure are i n the results section. ALT Routine 02/27/2020 10:45 AM Results for this CDT procedure are i n the results section. SODIUM Routine 02/27/2020 10:45 AM Results for this CDT procedure are i n the results section. GLUCOSE, RANDOM Routine 02/27/2020 10:45 AM Resul ts for this CDT procedure are i n the results section. FERRITIN Routine 02/27/2020 10:45 AM Results for this CDT procedure are i n the results section. CREATININE, SERUM Routine 02/27/2020 10:45 AM Res ults for this CDT procedure are i n the results section. KT/V DAUGIRDAS (HC) Routine 02/15/2020 10:45 AM R esults for this CDT procedure are i n the results section. WOJCIECH/PHOS W/RATI (HC) Routine 02/10/2020 10:45 AM Results for this CDT procedure are i n the results section. KT/V DAUGIRDAS (HC) Routine 02/10/2020 10:45 AM CDT HCT CALC HGBX3 (HC) Routine 02/10/2020 10:45 AM R esults for this CDT procedure are i n the results section. HEMOGLOBIN Routine 02/10/2020 10:45 AM Results for this CDT procedure are i n the results section. POTASSIUM Routine 02/10/2020 10:45 AM Results for this CDT procedure are i n the results section. documented in this encounter Results Hepatitis B Surface Antigen (02/27/2020 10:45 AM CDT) P athologist Signature Hep B Surface NEG -NEG APS DAVITA Antigen [facility] Comment: This test utilizes Biotin (Vitamin B7) a s one of it's reagents. Testing may be interfered with in patients consuming Bi otin supplements. Please factor this when reviewing results. Specimen Anatomical Collection Method Collection Time Receive d Time (Source) Location / / Volume Laterality 02/27/2020 10:45 02/28/2020 2:13 AM CDT PM CDT Checo Sky MD LAB BLOOD ORDERABLES Performing Organization Address City/State/ZIP Code Phon e Number APS JARRODITA [facility] (ABNORMAL) Ferritin (02/27/2020 10:45 AM CDT) P athologist Signature Ferritin 723 (H) 22 - 322 APS DAVITA ng/mL [facility] Specimen Anatomical Collection Method Collection Time Receive d Time (Source) Location / / Volume Laterality 02/27/2020 10:45 02/28/2020 2:13 AM CDT PM CDT Checo Sky MD LAB BLOOD ORDERABLES Performing Organization Address City/State/ZIP Code Phon e Number APS DAVITA [facility] ALT (02/27/2020 10:45 AM CDT) P athologist Signature ALT (SGPT) 14 10 - 49 U/L APS DAVITA [facility] Specimen Anatomical Collection Method Collection Time Receive d Time (Source) Location / / Volume Laterality 02/27/2020 10:45 02/28/2020 2:13 AM CDT PM CDT Checo Sky MD LAB BLOOD ORDERABLES Performing Organization Address City/State/ZIP Code Phon e Number APS DAVITA [facility] (ABNORMAL) Glucose, random (02/27/2020 10:45 AM CDT) P athologist Signature Glucose 148 (H) 70 - 99 APS DAVITA mg/dL [facility] Specimen Anatomical Collection Method Collection Time Receive d Time (Source) Location / / Volume Laterality 02/27/2020 10:45 02/28/2020 2:13 AM CDT PM CDT Checo Sky MD LAB BLOOD ORDERABLES Performing Organization Address City/[facility]/ZIP Code Phon e Number APS DAVITA [facility] (ABNORMAL) Creatinine, serum (02/27/2020 10:45 AM CDT) P athologist Signature Creatinine 9.47 (H) 0.70 - 1.30 APS DAVITA mg/dL [facility] Specimen Anatomical Collection Method Collection Time Receive d Time (Source) Location / / Volume Laterality 02/27/2020 10:45 02/28/2020 2:13 AM CDT PM CDT Checo Sky MD LAB BLOOD ORDERABLES Performing Organization Address City/[facility]/ZIP Code Phon e Number APS DAVITA [facility] Sodium (02/27/2020 10:45 AM CDT) P athologist Signature Sodium 140 132 - 146 APS DAVITA mEq/L [facility] Specimen Anatomical Collection Method Collection Time Receive d Time (Source) Location / / Volume Laterality 02/27/2020 10:45 02/28/2020 2:13 AM CDT PM CDT Checo Sky MD LAB BLOOD ORDERABLES Performing Organization Address City/[facility]/ZIP Code Phon e Number APS DAVITA [facility] (ABNORMAL) Iron Panel (Fe, TIBC, TSAT) (02/27/2020 10:45 AM CDT) P athologist Signature Iron 111 65 - 175 APS DAVITA ug/dL [facility] TIBC 241 (L) 250 - 425 APS DAVITA ug/dL [facility] UIBC 130 75 - 360 APS DAVITA ug/dL [facility] Iron Saturation 46 21 - 49 % APS DAVITA (TSat) [facility] Specimen Anatomical Collection Method Collection Time Receive d Time (Source) Location / / Volume Laterality 02/27/2020 10:45 02/28/2020 2:13 AM CDT PM CDT Checo Sky MD LAB BLOOD ORDERABLES Performing Organization Address City/State/ZIP Code Phon e Number APS DAVITA [facility] (ABNORMAL) MONTHLY HD W/O CA/PH (02/27/2020 10:45 AM CDT) [facility] gist Method Time Signature Potassium 4.3 3.5 - 5.5 APS DAVITA mEq/L [facility] Chloride 103 99 - 109 APS DAVITA mEq/L [facility] Bicarbonate 21 20 - 31 APS DAVITA (CO2) mEq/L [facility] Protein, Total 7.1 5.7 - 8.2 APS DAVITA g/dL [facility] Albumin 4.0 3.2 - 4.8 APS DAVITA g/dL [facility] AST (SGOT) 14 0 - 34 APS DAVITA U/L [facility] LDH 163 120 - 246 APS DAVITA U/L [facility] Alkaline 129 (H) 46 - 116 APS DAVITA Phosphatase U/L [facility] WBC 6.8 4.5 - APS DAVITA 11.0 x [facility] 10'3 cells/uL RBC 3.18 (L) 4.60 - APS DAVITA 6.20 x [facility] 10'6 cells/uL Hgb 10.6 (L) 14.0 - APS DAVITA 18.0 g/dL [facility] Hematocrit 32.5 (L) 42.0 - APS DAVITA 52.0 % [facility] Hemoglobin x 3 31.8 (L) 42.0 - APS DAVITA 52.0 % [facility] MCV 102.2 (H) 80.0 - APS DAVITA 100.0 fL [facility] MCH 33.4 (H) 27.0 - APS DAVITA 31.0 pg [facility] MCHC 32.7 32.0 - APS DAVITA 36.0 g/dL [facility] RDW 14.1 11.0 - APS DAVITA 15.0 % [facility] Platelets 143 (L) 150 - 400 APS DAVITA x 10'3 [facility] cells/uL Neutrophils % 72.3 % APS DAVITA Auto [facility] Lymphocytes 15.9 % APS DAVITA Manual [facility] Monocytes Manual 7.0 % APS DAVITA [facility] Eosinophil % 4.3 % APS DAVITA [facility] Basophils 0.5 % APS DAVITA Relative [facility] Neutrophils 4,916.40 2,000 - APS DAVITA Absolute 8,800 [facility] Cell/uL Lymphocytes 1,081.20 1,100 - APS DAVITA Absolute (L) 4,800 [facility] Cell/uL Monocytes 476.00 0 - 1,100 APS DAVITA Absolute Cell/uL [facility] Eosinophils 292.40 0 - 700 APS DAVITA Absolute Cell/uL [facility] Basophils 34.00 0 - 400 APS DAVITA Absolute Cell/uL [facility] Comment: Diff percentage results will continue to be reported but without reference ranges per CAP guidelines and will not b e flagged as normal or abnormal. Absolute concentrations of circulating W BC are the preferable method of reporting and will continue to be evalua fareed against established reference ranges. Globulin 3.1 0.9 - 5 g/dL APS DAVITA [facility] A/G Ratio 1.3 1 - 2.5 Calc APS DAVITA [facility] Specimen Anatomical Collection Method Collection Time Receive d Time (Source) Location / / Volume Laterality 02/27/2020 10:45 02/28/2020 2:13 AM CDT PM CDT Checo Sky MD LAB [id number] NSOLICITED RESULTS Performing Organization Address City/State/ZIP Code Phon e Number APS DAVITA [facility] (ABNORMAL) KT/V DAUGIRDAS (02/15/2020 10:45 AM CDT) P athologist Signature BUN 60 (H) 9 - 23 APS DAVITA mg/dL [facility] BUN Post 16 9 - 23 APS DAVITA Dialysis mg/dL [facility] URR% 73 65 - 100 % APS DAVITA [facility] Specimen Anatomical Collection Method Collection Time Receive d Time (Source) Location / / Volume Laterality 02/15/2020 10:45 02/16/2020 9:14 AM CDT PM CDT Checo Sky MD LAB [id number] NSOLICITED RESULTS Performing Organization Address City/State/ZIP Code Phon e Number APS DAVITA [facility] Potassium (02/10/2020 10:45 AM CDT) P athologist Signature Potassium 4.6 3.5 - 5.5 APS DAVITA mEq/L [facility] Specimen Anatomical Collection Method Collection Time Receive d Time (Source) Location / / Volume Laterality 02/10/2020 10:45 02/11/2020 AM CDT 11:33 AM CDT Checo Sky MD LAB BLOOD ORDERABLES Performing Organization Address City/State/ZIP Code Phon e Number APS DAVITA [facility] (ABNORMAL) HCT CALC HGBX3 (02/10/2020 10:45 AM CDT) Analysis Performed At Patho logist Time Signature Hemoglobin x 3 31.5 (L) 42.0 - APS DAVITA 52.0 % [facility] Specimen Anatomical Collection Method Collection Time Receive d Time (Source) Location / / Volume Laterality 02/10/2020 10:45 02/11/2020 AM CDT 11:33 AM CDT Checo Sky MD LAB [id number] NSOLICITED RESULTS Performing Organization Address City/[facility]/ZIP Code Phon e Number APS DAVITA [facility] (ABNORMAL) Hemoglobin (02/10/2020 10:45 AM CDT) P athologist Signature Hgb 10.5 (L) 14.0 - 18.0 APS DAVITA g/dL [facility] Specimen Anatomical Collection Method Collection Time Receive d Time (Source) Location / / Volume Laterality 02/10/2020 10:45 02/11/2020 AM CDT 11:33 AM CDT Checo Sky MD LAB BLOOD ORDERABLES Performing Organization Address City/[facility]/ZIP Code Phon e Number APS DAVITA [facility] KT/V DAUGIRDAS (02/10/2020 10:45 AM CDT) Specimen Anatomical Collection Method Collection Time Receive d Time (Source) Location / / Volume Laterality 02/10/2020 10:45 02/11/2020 AM CDT 11:33 AM CDT Checo Sky MD LAB [id number] NSOLICITED RESULTS Performing Organization Address City/State/ZIP Code Phon e Number APS DAVITA [facility] WOJCIECH/PHOS W/RATI (02/10/2020 10:45 AM CDT) P athologist Signature Calcium 9.2 8.7 - 10.4 APS DAVITA mg/dL [facility] Phosphorus, 4.3 2.4 - 5.1 APS DAVITA Serum mg/dL [facility] CA/PHOS PRODUCT 39.6 21 - 53 APS DAVITA Calc [facility] Corrected 9.4 8.7 - 10.4 APS DAVITA Calcium mg/dL [facility] CA*PO4 CORRCTD 40.4 21 - 53 APS DAVITA Calc [facility] Specimen Anatomical Collection Method Collection Time Receive d Time (Source) Location / / Volume Laterality 02/10/2020 10:45 02/11/2020 AM CDT 11:33 AM CDT Checo Sky MD LAB [id number] NSOLICITED RESULTS Performing Organization Address City/State/ZIP Code Phon e Number APS DAVITA [facility] documented in this encounter Visit Diagnoses Not on filedocumented in this encounter
--- OUTSIDE RECORDS SUMMARY | 2022-04-17 14:32 | XMS_ITS | Encounter Summary ---
:1940 Author Organization [facility] Address [address] [place] [address] Care Team Providers Name Role Phone Unavailable Primary Care Provider Unavailable Encounter Details Date Type Department Care Team Description 02/27/2020 Treatment [facility] O f Checo Jolly MD [address] [place] [address] [place] [address] [place], [place] [phone] Social History Tobacco Use Types Packs/Day Years Used Date Smoking Tobacco: Never Assessed Sex Assigned at Date Recorded Not on file documented as of this encounter Miscellaneous Notes Dialysis Note - Checo Sky MD - 02/27/2020 4:29 PM CDT Date: Feb 27, 2020 Patient Name: Korey Mackay : 1940 Chart #: [id number] Sex: M This patient was personally seen for a basic visit as part of routine weekly dialysis care. A reviewof the dialysis treatment, blood pressure, estimated dry weight and recent lab values was made. These were discussed with the patient and staff as necessary. SHIP FITTER: Checo Sky MD LOCATION: [place] [phone] SCHEDULE: -W- 3rd Shift ACCESS: EDW: kg. DIALYZER: HD DURATION: NEEDLE SIZE: ANTICOAG: BATH: QB: ml/min QD: ml/min Subjective since his return from [place] he has had a pacer placed fro [...] is having physical therapy. No other complaints. Currently feeling well, no complaints. Very hard of hearing. Appetite is ok, denies sob. [birth year] birthday. Advanced Practitioner Subjective: Fatigue. Problem List Description [...] and no changes were made. BUN mg/dL 60 (02/15/20) 58 (01/09/20) 46 (12/21/19) 59 (12/19/19) 64 (12/12/19) CREATININE (MG/DL) IN SER/PLAS mg/dL 10.03 (01/23/20) 9.95 (12/26/19) 10.18 (11/21/19) 10.39 (10/24/19) 11.34 (09/26/19) URR% % 73 (02/15/20) 74 (01/09/20) 72 (12/21/19) 73 (12/19/19) See Below (12/12/19) WBC (BLOOD) x 103 cells/uL 6.0 (01/23/20) [...] (12/26/19) 657 (11/21/19) 462 (10/24/19) 364 (09/26/19) ALBUMIN (G/DL) g/dL 3.8 (01/23/20) 3.8 (12/26/19) 3.9 (11/21/19) 3.9 (10/24/19) 3.7 (09/26/19) SODIUM mEq/L 138 (01/23/20) 138 (12/26/19) 136 (11/21/19) 138 (10/24/19) 142 (09/26/19) POTASSIUM (MMOL/L) IN SER/PLAS mEq/L 4.6 (02/10/20) 4.6 (01/23/20) 4.4 (01/09/20) 4.9 (12/26/19) 4.3 (12/12/19) BICARBONATE (CO2) mEq/L 27 (01/23/20) 25 (12/26/19) 24 (11/21/19) 21 (10/24/19) 25 (09/26/19) CALCIUM mg/dL 9.2 (02/10/20) 8.9 (01/09/20) 9.0 (12/12/19) 8.7 (11/07/19) 8.6 (10/12/19) CORRECTED CALCIUM mg/dL 9.4 (02/10/20) 9.1 (01/09/20) 9.1 (12/12/19) 8.8 (11/07/19) 8.8 (10/12/19) PHOSPHORUS mg/dL 4.3 (02/10/20) 4.4 (01/09/20) 4.2 (12/12/19) 4.5 (12/05/19) 5.8 (11/21/19) CA*PO4 CORRCTD Calc 40.4 (02/10/20) 40.0 (01/09/20) 38.2 (12/12/19) 50.2 (11/07/19) 44.9 (10/12/19) IPTH pg/mL 238 (12/12/19) 121 (09/12/19) 226 (03/14/19) CALCIUM mg/dL 9.2 (02/10/20) 8.9 (01/09/20) 9.0 (12/12/19) 8.7 (11/07/19) 8.6 (10/12/19) CA/PHOS PRODUCT Calc 39.6 (02/10/20) 39.2 (01/09/20) 37.8 (12/12/19) 49.6 (11/07/19) 43.9 (10/12/19) CORRECTED CALCIUM mg/dL 9.4 (02/10/20) 9.1 (01/09/20) 9.1 (12/12/19) 8.8 (11/07/19) 8.8 (10/12/19) PHOSPHORUS mg/dL 4.3 (02/10/20) 4.4 (01/09/20) 4.2 (12/12/19) 4.5 (12/05/19) 5.8 (11/21/19) IPTH pg/mL 238 (12/12/19) 121 (09/12/19) 226 (03/14/19) Vascular Access Assessment: Type of access: Catheter Surgeon - [facility], Access center in [place]. Staff and patient report access is working [...] Access functioning well. Doing well on dialysis. Checo Sky MD [ Signed And locked electronically On 02/27/2020 at 04:39:19 PM ] Transcribed: Checo Sky ( 02/27/2020 ) documented in this encounter Plan of Treatment Not on filedocumented as of this encounter Visit Diagnoses Not on filedocumented in this encounter
--- OUTSIDE RECORDS SUMMARY | 2022-04-17 14:32 | XMS_ITS | Encounter Summary ---
:1940 Author Organization [facility] Address [address] [place] [address] Care Team Providers Name Role Phone Unavailable Primary Care Provider Unavailable Encounter Details Date Type Department Care Team Description 02/03/2020 Treatment [facility] f Checo Jolly MD [address] [place] [address] [place] [address] [place], [place] [phone] Social History Tobacco Use Types Packs/Day Years Used Date Smoking Tobacco: Never Assessed Sex Assigned at Date Recorded Not on file documented as of this encounter Miscellaneous Notes Dialysis Note - Checo Sky MD - 02/03/2020 12:51 PM CDT Date: Feb 03, 2020 Patient Name: Korey Mackay : 1940 Chart #: [id number] Sex: M This patient was personally seen for a basic visit as part of routine weekly dialysis care. A reviewof the dialysis treatment, blood pressure, estimated dry weight and recent lab values was made. These were discussed with the patient and staff as necessary. MAGISTRATE: Checo Sky MD LOCATION: [facility] [phone] SCHEDULE: -W- 3rd Shift ACCESS: EDW: kg. DIALYZER: HD DURATION: NEEDLE SIZE: ANTICOAG: BATH: QB: ml/min QD: ml/min Subjective He is recently back from [place] where he spent the winter. he did [...] physical therapy. No other complaints. Advanced Practitioner Subjective: Fatigue. Problem List Description [...] and no changes were made. BUN mg/dL 58 (01/09/20) 46 (12/21/19) 59 (12/19/19) 64 (12/12/19) 61 (11/16/19) CREATININE (MG/DL) IN SER/PLAS mg/dL 10.03 (01/23/20) 9.95 (12/26/19) 10.18 (11/21/19) 10.39 (10/24/19) 11.34 (09/26/19) URR% % 74 (01/09/20) 72 (12/21/19) 73 (12/19/19) See Below (12/12/19) 70 (11/16/19) KT/V, DAUGIRDAS II (CALC) TNP (02/21/19) WBC (BLOOD) x 103 cells/uL 6.0 (01/23/20) 7.3 (12/26/19) 6.2 (11/21/19) 6.2 (10/24/19) 6.4 (09/26/19) HGB g/dL 10.4 (01/23/20) 11.4 (01/09/20) 10.9 (12/26/19) 11.0 (12/12/19) 10.5 (11/21/19) PLATELETS x 103 cells/uL 132 (01/23/20) 160 [...] (09/26/19) POTASSIUM (MMOL/L) IN SER/PLAS mEq/L 4.6 (01/23/20) 4.4 (01/09/20) 4.9 (12/26/19) 4.3 (12/12/19) 4.2 (11/21/19) BICARBONATE (CO2) mEq/L 27 (01/23/20) 25 (12/26/19) 24 (11/21/19) 21 (10/24/19) 25 (09/26/19) CALCIUM mg/dL 8.9 (01/09/20) 9.0 (12/12/19) 8.7 (11/07/19) 8.6 (10/12/19) 9.0 (09/12/19) CORRECTED CALCIUM mg/dL 9.1 (01/09/20) 9.1 (12/12/19) 8.8 (11/07/19) 8.8 (10/12/19) 9.1 (09/12/19) PHOSPHORUS mg/dL 4.4 (01/09/20) 4.2 (12/12/19) 4.5 (12/05/19) 5.8 (11/21/19) 5.7 (11/07/19) CA*PO4 CORRCTD Calc 40.0 (01/09/20) 38.2 (12/12/19) 50.2 (11/07/19) 44.9 (10/12/19) 23.7 (09/12/19) IPTH pg/mL 238 (12/12/19) 121 (09/12/19) 226 (03/14/19) CALCIUM mg/dL 8.9 (01/09/20) 9.0 (12/12/19) 8.7 (11/07/19) 8.6 (10/12/19) 9.0 (09/12/19) CA/PHOS PRODUCT Calc 39.2 (01/09/20) 37.8 (12/12/19) 49.6 (11/07/19) 43.9 (10/12/19) 23.4 (09/12/19) CORRECTED CALCIUM mg/dL 9.1 (01/09/20) 9.1 (12/12/19) 8.8 (11/07/19) 8.8 (10/12/19) 9.1 (09/12/19) PHOSPHORUS mg/dL 4.4 (01/09/20) 4.2 (12/12/19) 4.5 (12/05/19) 5.8 (11/21/19) 5.7 (11/07/19) IPTH pg/mL 238 (12/12/19) 121 (09/12/19) 226 (03/14/19) Vascular Access Assessment: Type of access: Catheter Surgeon - [facility], Access center in [place]. Staff and patient report access is working well. Impression and Plan Stable on dialysis Phos pth are at goal. Hgb is at goal Alb is a little below goal. says he is eating well . he is getting liquicel here. More alert and stronger since pacer, though still gets very fatigued after dialysis. Phos is at goal He says he is taking binder. Now using access, Doing well on dialysis. Recent fall, on physical therapy. Checo Sky MD [ Signed And locked electronically On 02/03/2020 at 12:55:19 PM ] Transcribed: Checo Sky ( 02/03/2020 ) documented in this encounter Plan of Treatment Not on filedocumented as of this encounter Visit Diagnoses Not on filedocumented in this encounter
--- OUTSIDE RECORDS SUMMARY | 2022-04-17 14:32 | XMS_ITS | Encounter Summary ---
:1940 Author Organization [facility] Address [address] [place] [address] Care Team Providers Name Role Phone Unavailable Primary Care Provider Unavailable Encounter Details Date Type Department Care Team Description 03/28/2020 Treatment [facility] f Checo Jolly MD [address] [place] [address] [place] [address] [place], [place] [phone] Social History Tobacco Use Types Packs/Day Years Used Date Smoking Tobacco: Never Assessed Sex Assigned at Date Recorded Not on file documented as of this encounter Miscellaneous Notes Dialysis Note - Checo Sky MD - 03/28/2020 3:15 PM CDT Date: Mar 28, 2020 Patient Name: Korey Mackay : 1940 Chart #: [id number] Sex: M This patient was personally seen for a basic visit as part of routine weekly dialysis care. A reviewof the dialysis treatment, blood pressure, estimated dry weight and recent lab values was made. These were discussed with the patient and staff as necessary. 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 DIALYZER: HD DURATION: NEEDLE SIZE: ANTICOAG: BATH: QB: ml/min QD: ml/min Subjective since his return from [place] he has had a pacer placed fro [...] but still has significant fatigue after dialysis. Having some episodes of hypotension . He did recently fall and hurt his hip. No fracture. he is having physical therapy. No other complaints. Currently feeling well, no complaints. Very hard of hearing. Appetite is ok, denies sob 03/19: Denies any new complaints. Hearing much [...] plan to refer him to Dr. Meneses. Advanced Practitioner Subjective: Fatigue. Problem List Description [...] and no changes were made. BUN mg/dL 61 (03/12/20) 60 (02/15/20) 58 (01/09/20) 46 (12/21/19) 59 (12/19/19) CREATININE (MG/DL) IN SER/PLAS mg/dL 10.10 (03/26/20) 9.47 (02/27/20) 10.03 (01/23/20) 9.95 (12/26/19) 10.18 (11/21/19) URR% % 74 (03/12/20) 73 (02/15/20) 74 (01/09/20) 72 (12/21/19) 73 (12/19/19) WBC (BLOOD) x 103 cells/uL 6.4 (03/26/20) 6.8 (02/27/20) 6.0 (01/23/20) 7.3 (12/26/19) 6.2 (11/21/19) HGB g/dL 10.0 (03/26/20) 10.0 (03/12/20) 10.6 (02/27/20) 10.5 (02/10/20) 10.4 (01/23/20) PLATELETS x 103 cells/uL 134 (03/26/20) 143 (02/27/20) 132 (01/23/20) 160 (12/26/19) 149 (11/21/19) IRON SATURATION % 43 (03/26/20) 46 (02/27/20) 34 (01/23/20) 42 (12/26/19) 30 (11/21/19) FERRITIN ng/mL 705 (03/26/20) 723 (02/27/20) 768 (01/23/20) 622 (12/26/19) 657 (11/21/19) ALBUMIN (G/DL) g/dL 3.9 (03/26/20) 4.0 (02/27/20) 3.8 (01/23/20) 3.8 (12/26/19) 3.9 (11/21/19) SODIUM mEq/L 137 (03/26/20) 140 (02/27/20) 138 (01/23/20) 138 (12/26/19) 136 (11/21/19) POTASSIUM (MMOL/L) IN SER/PLAS mEq/L 4.6 (03/26/20) 4.7 (03/12/20) 4.3 (02/27/20) 4.6 (02/10/20) 4.6 (01/23/20) BICARBONATE (CO2) mEq/L 21 (03/26/20) 21 (02/27/20) 27 (01/23/20) 25 (12/26/19) 24 (11/21/19) CALCIUM mg/dL 9.0 (03/12/20) 9.2 (02/10/20) 8.9 (01/09/20) 9.0 (12/12/19) 8.7 (11/07/19) CORRECTED CALCIUM mg/dL 9.0 (03/12/20) 9.4 (02/10/20) 9.1 (01/09/20) 9.1 (12/12/19) 8.8 (11/07/19) PHOSPHORUS mg/dL 3.7 (03/12/20) 4.3 (02/10/20) 4.4 (01/09/20) 4.2 (12/12/19) 4.5 (12/05/19) CA*PO4 CORRCTD Calc 33.3 (03/12/20) 40.4 (02/10/20) 40.0 (01/09/20) 38.2 (12/12/19) 50.2 (11/07/19) IPTH pg/mL 202 (03/12/20) 238 (12/12/19) 121 (09/12/19) CALCIUM mg/dL 9.0 (03/12/20) 9.2 (02/10/20) 8.9 (01/09/20) 9.0 (12/12/19) 8.7 (11/07/19) CA/PHOS PRODUCT Calc 33.3 (03/12/20) 39.6 (02/10/20) 39.2 (01/09/20) 37.8 (12/12/19) 49.6 (11/07/19) CORRECTED CALCIUM mg/dL 9.0 (03/12/20) 9.4 (02/10/20) 9.1 (01/09/20) 9.1 (12/12/19) 8.8 (11/07/19) PHOSPHORUS mg/dL 3.7 (03/12/20) 4.3 (02/10/20) 4.4 (01/09/20) 4.2 (12/12/19) 4.5 (12/05/19) IPTH pg/mL 202 (03/12/20) 238 (12/12/19) 121 (09/12/19) Vascular Access Assessment: Type of access: Catheter Surgeon - [facility], Access center in [place]. Staff and patient report access is working well. Impression and Plan Stable on dialysis Phos pth calcium are at goal. Hgb is at goal Alb is below goal says he is eating well . he is getting liquicel here. More alert and stronger since pacer, though still gets very fatigued after dialysis. Phos is at goal He says he is taking binder. Access functioning well. Doing well on dialysis. Will need urologic work up. Checo Sky MD [ Signed And locked electronically On 03/28/2020 at 03:19:14 PM ] Transcribed: Checo Sky ( 03/28/2020 ) documented in this encounter Plan of Treatment Not on filedocumented as of this encounter Visit Diagnoses Not on filedocumented in this encounter
--- OUTSIDE RECORDS SUMMARY | 2022-04-17 14:32 | XMS_ITS | Encounter Summary ---
:1940 Author Organization [facility] Address [address] [place] [address] Care Team Providers Name Role Phone Unavailable Primary Care Provider Unavailable Encounter Details Date Type Department Care Team Description 03/09/2020 Treatment [facility] f Checo Jolly MD [address] [place] [address] [place] [address] [place], [place] [phone] Social History Tobacco Use Types Packs/Day Years Used Date Smoking Tobacco: Never Assessed Sex Assigned at Date Recorded Not on file documented as of this encounter Miscellaneous Notes Dialysis Note - Checo Sky MD - 03/09/2020 1:42 PM CDT Date: Mar 09, 2020 Patient Name: Korey Mackay : 1940 Chart #: [id number] Sex: M This patient was personally seen for a complete visit as part of routine monthly dialysis care. A review of the dialysis treatment, blood pressure, estimated dry weight and recent lab values was made. These were discussed with the patient and staff as necessary. 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 DIALYZER: HD DURATION: NEEDLE SIZE: ANTICOAG: BATH: QB: ml/min QD: ml/min Subjective since his return from [place] he has had a pacer placed fro [...] of hearing. Appetite is ok, denies sob. Advanced Practitioner Subjective Review of Systems [...] 64 (12/12/19) CREATININE (MG/DL) IN SER/PLAS mg/dL 9.47 (02/27/20) 10.03 (01/23/20) 9.95 (12/26/19) 10.18 (11/21/19) 10.39 (10/24/19) URR% % 73 (02/15/20) 74 (01/09/20) 72 (12/21/19) 73 (12/19/19) See Below (12/12/19) Dialysis is adequate. Achieves prescribed time - Yes Achieves prescribed frequency - Yes Vascular Access Assessment Type of access: Catheter Surgeon - [facility], Access center in [place]. Staff and patient report access is working well. Anemia Assessment WBC (BLOOD) x 103 cells/uL 6.8 (02/27/20) 6.0 (01/23/20) 7.3 (12/26/19) 6.2 (11/21/19) 6.2 (10/24/19) HGB g/dL 10.6 (02/27/20) 10.5 (02/10/20) 10.4 (01/23/20) 11.4 (01/09/20) 10.9 (12/26/19) PLATELETS x 103 cells/uL 143 (02/27/20) 132 (01/23/20) 160 (12/26/19) 149 (11/21/19) 144 (10/24/19) IRON SATURATION % 46 (02/27/20) 34 (01/23/20) 42 (12/26/19) 30 (11/21/19) 29 (10/24/19) FERRITIN ng/mL 723 (02/27/20) 768 (01/23/20) 622 (12/26/19) 657 (11/21/19) 462 (10/24/19) Hemoglobin is at goal. Iron Saturation is at goal. Ferritin is above goal. Will adjust MISTY and intravenous iron per protocol. Nutritional and Metabolic Assessment ALBUMIN (G/DL) g/dL 4.0 (02/27/20) 3.8 (01/23/20) 3.8 (12/26/19) 3.9 (11/21/19) 3.9 (10/24/19) SODIUM mEq/L 140 (02/27/20) 138 (01/23/20) 138 (12/26/19) 136 (11/21/19) 138 (10/24/19) POTASSIUM (MMOL/L) IN SER/PLAS mEq/L 4.3 (02/27/20) 4.6 (02/10/20) 4.6 (01/23/20) 4.4 (01/09/20) 4.9 (12/26/19) BICARBONATE (CO2) mEq/L 21 (02/27/20) 27 (01/23/20) 25 (12/26/19) 24 (11/21/19) 21 (10/24/19) Albumin is below goal. Encourage high-biological value [...] at goal. Intact PTH is at goal. Maintenance Carpenter will adjust binders and vitamin D per [...] MD [ Signed And locked electronically On 03/09/2020 at 01:47:00 PM ] Transcribed: Checo Sky ( 03/09/2020 ) documented in this encounter Plan of Treatment Not on filedocumented as of this encounter Visit Diagnoses Not on filedocumented in this encounter
--- OUTSIDE RECORDS SUMMARY | 2022-04-17 14:32 | XMS_ITS | Encounter Summary ---
:1940 Author Organization [facility] Address [address] [place] [address] Care Team Providers Name Role Phone Unavailable Primary Care Provider Unavailable Encounter Details Date Type Department Care Team Description 12/12/2019 Treatment [facility] f Checo Jolly MD [address] [place] [address] [place] [address] [place], [place] [phone] Social History Tobacco Use Types Packs/Day Years Used Date Smoking Tobacco: Never Assessed Sex Assigned at Date Recorded Not on file documented as of this encounter Miscellaneous Notes Dialysis Note - Checo Sky MD - 12/12/2019 2:53 PM CDT Date: Dec 12, 2019 Patient Name: Korey Mackay : 1940 Chart #: [id number] Sex: M This patient was personally seen for a complete visit as part of routine monthly dialysis care. A review of the dialysis treatment, blood pressure, estimated dry weight and recent lab values was made. These were discussed with the patient and staff as necessary. SPA CONCIERGE: Checo Sky MD LOCATION: [facility] [phone] SCHEDULE: -W- 3rd Shift EDW: kg. DIALYZER: HD DURATION: NEEDLE SIZE: ANTICOAG: BATH: QB: ml/min QD: ml/min Subjective He is recently back from [place] where he spent the winter. he did [...] dizziness or sob. Also denies any pain. Advanced Practitioner Subjective Review of Systems Fatigue. [...] Treatment and Adequacy Assessment BUN mg/dL 61 (11/16/19) 72 (11/07/19) 71 (10/24/19) 61 (10/12/19) 63 (10/03/19) CREATININE (MG/DL) IN SER/PLAS mg/dL 10.18 (11/21/19) 10.39 (10/24/19) 11.34 (09/26/19) 10.94 (09/12/19) 10.05 (05/23/19) URR% % 70 (11/16/19) 71 (11/07/19) 70 (10/24/19) 67 (10/12/19) 67 (10/03/19) KT/V, DAUGIRDAS II (CALC) TNP (02/21/19) Dialysis is adequate. Achieves prescribed time - Yes Achieves prescribed frequency - Yes Vascular Access Assessment Type of access: Catheter Surgeon - [facility], Access center in [place]. Staff and patient report access is working well. Anemia Assessment WBC (BLOOD) x 103 cells/uL 6.2 (11/21/19) 6.2 (10/24/19) 6.4 (09/26/19) 9.4 (09/12/19) 7.6 (05/23/19) HGB g/dL 10.5 (11/21/19) 11.1 (11/14/19) 11.8 (11/07/19) 11.3 (10/24/19) 11.2 (10/12/19) PLATELETS x 103 cells/uL 149 (11/21/19) 144 (10/24/19) 151 (09/26/19) 134 (09/12/19) 139 (05/23/19) IRON SATURATION % 30 (11/21/19) 29 (10/24/19) 21 (09/26/19) 23 (09/12/19) 28 (05/23/19) FERRITIN ng/mL 657 (11/21/19) 462 (10/24/19) 364 (09/26/19) 543 (09/12/19) 460 (05/23/19) Hemoglobin is at goal. Iron Saturation is at goal. Ferritin is above goal. Will adjust MISTY and intravenous iron per protocol. Nutritional and Metabolic Assessment ALBUMIN (G/DL) g/dL 3.9 (11/21/19) 3.9 (10/24/19) 3.7 (09/26/19) 3.9 (09/12/19) 3.8 (05/23/19) SODIUM mEq/L 136 (11/21/19) 138 (10/24/19) 142 (09/26/19) 140 (09/12/19) 141 (05/23/19) POTASSIUM (MMOL/L) IN SER/PLAS mEq/L 4.2 (11/21/19) 4.7 (11/07/19) 4.4 (10/24/19) 4.2 (10/12/19) 4.4 (09/26/19) BICARBONATE (CO2) mEq/L 24 (11/21/19) 21 (10/24/19) 25 (09/26/19) 19 (09/12/19) 23 (05/23/19) Albumin is below goal. Encourage high-biological value protein intake. Oral Nutritional Supplement program. Potassium is at goal. Bicarbonate is at goal. Bone and Mineral Metabolism Assessment CALCIUM mg/dL 8.7 (11/07/19) 8.6 (10/12/19) 9.0 (09/12/19) 9.0 (05/09/19) 8.5 (04/11/19) CORRECTED CALCIUM mg/dL 8.8 (11/07/19) 8.8 (10/12/19) 9.1 (09/12/19) 9.0 (05/09/19) 8.7 (04/11/19) PHOSPHORUS mg/dL 4.5 (12/05/19) 5.8 (11/21/19) 5.7 (11/07/19) 5.1 (10/12/19) 2.6 (09/12/19) CA*PO4 CORRCTD Calc 50.2 (11/07/19) 44.9 (10/12/19) 23.7 (09/12/19) 45.9 (05/09/19) 42.6 (04/11/19) IPTH pg/mL 121 (09/12/19) 226 (03/14/19) Corrected Calcium is at goal. Phosphorous is at goal. Ca X P product is at goal. Intact PTH is below goal. Career Manager will adjust binders and vitamin D per [...] MD [ Signed And locked electronically On 12/12/2019 at 03:01:47 PM ] Transcribed: Checo Sky ( 12/12/2019 ) documented in this encounter Plan of Treatment Not on filedocumented as of this encounter Visit Diagnoses Not on filedocumented in this encounter
--- OUTSIDE RECORDS SUMMARY | 2022-04-17 14:32 | XMS_ITS | Encounter Summary ---
:1940 Author Organization [facility] Address [address] [place] [address] Care Team Providers Name Role Phone Unavailable Primary Care Provider Unavailable Encounter Details Date Type Department Care Team Description 10/24/2019 Orders Only [facility] Checo Jolly MD [address] [place] [address] [place] [address] Social History Tobacco Use Types Packs/Day Years Used Date Smoking Tobacco: Never Assessed Sex Assigned at Date Recorded Not on file documented as of this encounter Plan of Treatment Not on filedocumented as of this encounter Procedures Procedure Name Priority Date/Time Associated Comments Diagnosis MONTHLY HD W/O CA/PH Routine 11/21/2019 12:30 PM Results for this (HC) CDT procedure are i n the results section. IRON PANEL (FE, Routine 11/21/2019 12:30 PM Resul ts for this TIBC, TSAT) CDT procedure are i n the results section. HEPATITIS B SURFACE Routine 11/21/2019 12:30 PM R esults for this ANTIGEN CDT procedure are i n the results section. ALT Routine 11/21/2019 12:30 PM Results for this CDT procedure are i n the results section. SODIUM Routine 11/21/2019 12:30 PM Results for this CDT procedure are i n the results section. PHOSPHATE ( Routine 11/21/2019 12:30 PM Results for this PHOSPHORUS) CDT procedure are i n the results section. GLUCOSE, RANDOM Routine 11/21/2019 12:30 PM Resul ts for this CDT procedure are i n the results section. FERRITIN Routine 11/21/2019 12:30 PM Results for this CDT procedure are i n the results section. CREATININE, SERUM Routine 11/21/2019 12:30 PM Res ults for this CDT procedure are i n the results section. KT/V DAUGIRDAS (HC) Routine 11/16/2019 10:45 AM R esults for this CDT procedure are i n the results section. KT/V DAUGIRDAS (HC) Routine 11/14/2019 12:30 PM CDT HCT CALC HGBX3 (HC) Routine 11/14/2019 12:30 PM R esults for this CDT procedure are i n the results section. HEMOGLOBIN Routine 11/14/2019 12:30 PM Results for this CDT procedure are i n the results section. WOJCIECH/PHOS W/RATI (HC) Routine 11/07/2019 12:30 PM Results for this CDT procedure are i n the results section. KT/V DAUGIRDAS (HC) Routine 11/07/2019 12:30 PM R esults for this CDT procedure are i n the results section. HCT CALC HGBX3 (HC) Routine 11/07/2019 12:30 PM R esults for this CDT procedure are i n the results section. HEMOGLOBIN Routine 11/07/2019 12:30 PM Results for this CDT procedure are i n the results section. POTASSIUM Routine 11/07/2019 12:30 PM Results for this CDT procedure are i n the results section. KT/V DAUGIRDAS (HC) Routine 10/24/2019 12:30 PM R esults for this CDT procedure are i n the results section. MONTHLY HD W/O CA/PH Routine 10/24/2019 12:30 PM Results for this (HC) CDT procedure are i n the results section. IRON PANEL (FE, Routine 10/24/2019 12:30 PM Resul ts for this TIBC, TSAT) CDT procedure are i n the results section. HEPATITIS B SURFACE Routine 10/24/2019 12:30 PM R esults for this ANTIGEN CDT procedure are i n the results section. ALT Routine 10/24/2019 12:30 PM Results for this CDT procedure are i n the results section. SODIUM Routine 10/24/2019 12:30 PM Results for this CDT procedure are i n the results section. GLUCOSE, RANDOM Routine 10/24/2019 12:30 PM Resul ts for this CDT procedure are i n the results section. FERRITIN Routine 10/24/2019 12:30 PM Results for this CDT procedure are i n the results section. CREATININE, SERUM Routine 10/24/2019 12:30 PM Res ults for this CDT procedure are i n the results section. documented in this encounter Results (ABNORMAL) ALT (11/21/2019 12:30 PM CDT) P athologist Signature ALT (SGPT) <9 (L) 10 - 49 U/L [facility] Specimen Anatomical Collection Method Collection Time Receive d Time (Source) Location / / Volume Laterality 11/21/2019 12:30 11/22/2019 7:46 PM CDT AM CDT Checo Sky MD LAB BLOOD ORDERABLES Performing Organization Address City/State/ZIP Code Phon e Number APS [facility] (ABNORMAL) Phosphorus (11/21/2019 12:30 PM CDT) athologist Signature Phosphorus, 5.8 (H) 2.4 - 5.1 [facility] Serum mg/dL [facility] Specimen Anatomical Collection Method Collection Time Receive d Time (Source) Location / / Volume Laterality 11/21/2019 12:30 11/22/2019 7:46 PM CDT AM CDT Checo Sky MD LAB BLOOD ORDERABLES Performing Organization Address City/State/ZIP Code Phon e Number [facility] (ABNORMAL) Glucose, random (11/21/2019 12:30 PM CDT) athologist Signature Glucose 111 (H) 70 - 99 [facility] mg/dL [facility] Specimen Anatomical Collection Method Collection Time Receive d Time (Source) Location / / Volume Laterality 11/21/2019 12:30 11/22/2019 7:46 PM CDT AM CDT Checo Sky MD LAB BLOOD ORDERABLES Performing Organization Address City/[facility]/ZIP Code Phon e Number APS [facility] (ABNORMAL) Creatinine, serum (11/21/2019 12:30 PM CDT) athologist Signature Creatinine 10.18 (H) 0.70 - APS [facility] 1.30 mg/dL [facility] Specimen Anatomical Collection Method Collection Time Receive d Time (Source) Location / / Volume Laterality 11/21/2019 12:30 11/22/2019 7:46 PM CDT AM CDT Checo Sky MD LAB BLOOD ORDERABLES Performing Organization Address City/State/ZIP Code Phon e Number [facility] Sodium (11/21/2019 12:30 PM CDT) P athologist Signature Sodium 136 132 - 146 A[facility] mEq/L [facility] Specimen Anatomical Collection Method Collection Time Receive d Time (Source) Location / / Volume Laterality 11/21/2019 12:30 11/22/2019 7:46 PM CDT AM CDT Checo Sky MD LAB BLOOD ORDERABLES Performing Organization Address City/State/ZIP Code Phon e Number [facility] Hepatitis B Surface Antigen (11/21/2019 12:30 PM CDT) P athologist Signature Hep B Surface NEG -NEG [facility] Antigen [facility] Comment: This test utilizes Biotin (Vitamin B7) a s one of it's reagents. Testing may be interfered with in patients consuming Bi otin supplements. Please factor this when reviewing results. Specimen Anatomical Collection Method Collection Time Receive d Time (Source) Location / / Volume Laterality 11/21/2019 12:30 11/22/2019 7:46 PM CDT AM CDT Checo Sky MD LAB BLOOD ORDERABLES Performing Organization Address City/[facility]/ZIP Code Phon e Number APS DAVIRENE [facility] (ABNORMAL) Ferritin (11/21/2019 12:30 PM CDT) P athologist Signature Ferritin 657 (H) 22 - 322 APS [facility] ng/mL [facility] Specimen Anatomical Collection Method Collection Time Receive d Time (Source) Location / / Volume Laterality 11/21/2019 12:30 11/22/2019 7:46 PM CDT AM CDT Checo Sky MD LAB BLOOD ORDERABLES Performing Organization Address City/State/ZIP Code Phon e Number [facility] (ABNORMAL) Iron Panel (Fe, TIBC, TSAT) (11/21/2019 12:30 PM CDT) P athologist Signature Iron 61 (L) 65 - 175 [facility] ug/dL [facility] TIBC 206 (L) 250 - 425 [facility] ug/dL [facility] UIBC 145 75 - 360 APS [facility] ug/dL [facility] Iron Saturation 30 21 - 49 % APS [facility] (TSat) [facility] Specimen Anatomical Collection Method Collection Time Receive d Time (Source) Location / / Volume Laterality 11/21/2019 12:30 11/22/2019 7:46 PM CDT AM CDT Checo Sky MD LAB BLOOD ORDERABLES Performing Organization Address City/State/ZIP Code Phon e Number APS [facility] (ABNORMAL) MONTHLY HD W/O CA/PH (11/21/2019 12:30 PM CDT) [facility] gist Method Time Signature Potassium 4.2 3.5 - 5.5 APS DAV[facility] mEq/L [facility] Chloride 98 (L) 99 - 109 A[facility] mEq/L [facility] Bicarbonate 24 20 - 31 APS DAV[facility] (CO2) mEq/L [facility] Protein, Total 7.0 5.7 - 8.2 APS [facility] g/dL [facility] Albumin 3.9 3.2 - 4.8 APS [facility] g/dL [facility] AST (SGOT) 26 0 - 34 [facility] U/L [facility] LDH 163 120 - 246 APS [facility] U/L [facility] Alkaline 78 46 - 116 [facility] Phosphatase U/L [facility] WBC 6.2 4.5 - APS [facility] 11.0 x [facility] 10'3 cells/uL RBC 3.23 (L) 4.60 - APS [facility] 6.20 x [facility] 10'6 cells/uL Hgb 10.5 (L) 14.0 - APS [facility] 18.0 g/dL [facility] Hematocrit 32.1 (L) 42.0 - APS [facility] 52.0 % [facility] Hemoglobin x 3 31.5 (L) 42.0 - APS [facility] 52.0 % [facility] MCV 99.5 80.0 - APS [facility] 100.0 fL [facility] MCH 32.5 (H) 27.0 - APS DAVITA 31.0 pg [facility] MCHC 32.7 32.0 - APS DAVITA 36.0 g/dL [facility] RDW 14.3 11.0 - APS DAV[facility] 15.0 % [facility] Platelets 149 (L) 150 - 400 APS DAV[facility] x 10'3 [facility] cells/uL Neutrophils % 74.0 % APS [facility] Auto [facility] Lymphocytes 14.7 % APS [facility] Manual [facility] Monocytes Manual 6.3 % APS [facility] Eosinophil % 4.7 % APS [facility] Basophils 0.3 % APS [facility] Relative [facility] Neutrophils 4,573.20 2,000 - APS DAV[facility] Absolute 8,800 [facility] Cell/uL Lymphocytes 908.46 (L) 1,100 - APS DAV[facility] Absolute 4,800 [facility] Cell/uL Monocytes 389.34 0 - 1,100 APS DAV[facility] Absolute Cell/uL [facility] Eosinophils 290.46 0 - 700 APS [facility] Absolute Cell/uL [facility] Basophils 18.54 0 - 400 APS [facility] Absolute Cell/uL [...] Time (Source) Location / / Volume Laterality 11/21/2019 12:30 11/22/2019 7:46 PM CDT AM CDT Checo Sky MD LAB [id number] NSOLICITED RESULTS Performing Organization Address City/State/ZIP Code Phon e Number [facility] (ABNORMAL) KT/V DAUGIRDAS (11/16/2019 10:45 AM CDT) athologist Signature BUN 61 (H) 9 - 23 [facility] mg/dL [facility] BUN Post 18 9 - 23 [facility] Dialysis mg/dL [facility] URR% 70 65 - 100 % [facility]PS [facility] Specimen Anatomical Collection Method Collection Time Receive d Time (Source) Location / / Volume Laterality 11/16/2019 10:45 11/17/2019 7:46 AM CDT AM CDT Checo Sky MD LAB [id number] NSOLICITED RESULTS Performing Organization Address City/State/ZIP Code Phon e Number APS [facility] (ABNORMAL) Hemoglobin (11/14/2019 12:30 PM CDT) P athologist Signature Hgb 11.1 (L) 14.0 - 18.0 [facility]PS [facility] g/dL [facility] Specimen Anatomical Collection Method Collection Time Receive d Time (Source) Location / / Volume Laterality 11/14/2019 12:30 11/15/2019 8:19 PM CDT PM CDT Checo Sky MD LAB BLOOD ORDERABLES Performing Organization Address City/State/ZIP Code Phon e Number APS [facility] (ABNORMAL) HCT CALC HGBX3 (11/14/2019 12:30 PM CDT) Analysis Performed At Patho logist Time Signature Hemoglobin x 3 33.3 (L) 42.0 - APS [facility] 52.0 % [facility] Specimen Anatomical Collection Method Collection Time Receive d Time (Source) Location / / Volume Laterality 11/14/2019 12:30 11/15/2019 8:19 PM CDT PM CDT Checo Sky MD LAB [id number] NSOLICITED RESULTS Performing Organization Address City/[facility] Code Phon e Number APS DAV[facility] KT/V DAUGIRDAS (11/14/2019 12:30 PM CDT) Specimen Anatomical Collection Method Collection Time Receive d Time (Source) Location / / Volume Laterality 11/14/2019 12:30 11/15/2019 8:19 PM CDT PM CDT Checo Sky MD LAB [id number] NSOLICITED RESULTS Performing Organization Address City/[facility]/ZIP Code Phon e Number APS DAV[facility] Potassium (11/07/2019 12:30 PM CDT) P athologist Signature Potassium 4.7 3.5 - 5.5 APS DAV[facility] mEq/L [facility] Specimen Anatomical Collection Method Collection Time Receive d Time (Source) Location / / Volume Laterality 11/07/2019 12:30 11/10/2019 9:47 PM CDT PM CDT Checo Sky MD LAB BLOOD ORDERABLES Performing Organization Address City/State/ZIP Code Phon e Number APS DAV[facility] (ABNORMAL) HCT CALC HGBX3 (11/07/2019 12:30 PM CDT) Analysis Performed At Patho logist Time Signature Hemoglobin x 3 35.4 (L) 42.0 - APS DAVITA 52.0 % [facility] Specimen Anatomical Collection Method Collection Time Receive d Time (Source) Location / / Volume Laterality 11/07/2019 12:30 11/10/2019 9:47 PM CDT PM CDT Checo Sky MD LAB [id number] NSOLICITED RESULTS Performing Organization Address City/[facility]/ZIP Code Phon e Number APS DAVITA [facility] (ABNORMAL) Hemoglobin (11/07/2019 12:30 PM CDT) athologist Signature Hgb 11.8 (L) 14.0 - 18.0 APS DAVITA g/dL [facility] Specimen Anatomical Collection Method Collection Time Receive d Time (Source) Location / / Volume Laterality 11/07/2019 12:30 11/10/2019 9:47 PM CDT PM CDT Checo Sky MD LAB BLOOD ORDERABLES Performing Organization Address City/[facility]/ZIP Code Phon e Number APS DAVITA [facility] (ABNORMAL) KT/V DAUGIRDAS (11/07/2019 12:30 PM CDT) athologist Signature BUN 72 (H) 9 - 23 APS DAV[facility] mg/dL [facility] BUN Post 21 9 - 23 APS DAV[facility] Dialysis mg/dL [facility] URR% 71 65 - 100 % APS DAV[facility] Specimen Anatomical Collection Method Collection Time Receive d Time (Source) Location / / Volume Laterality 11/07/2019 12:30 11/10/2019 9:47 PM CDT PM CDT Checo Sky MD LAB [id number] NSOLICITED RESULTS Performing Organization Address City/State/ZIP Code Phon e Number APS DAV[facility] (ABNORMAL) WOJCIECH/PHOS W/RATI (11/07/2019 12:30 PM CDT) P athologist Signature Calcium 8.7 8.7 - 10.4 APS [facility] mg/dL [facility] Phosphorus, 5.7 (H) 2.4 - 5.1 APS DAV[facility] Serum mg/dL [facility] CA/PHOS 49.6 21 - 53 APS DAV[facility] PRODUCT Calc [facility] Corrected 8.8 8.7 - 10.4 APS DAV[facility] Calcium mg/dL [facility] CA*PO4 CORRCTD 50.2 21 - 53 APS DAV[facility] Calc [facility] Specimen Anatomical Collection Method Collection Time Receive d Time (Source) Location / / Volume Laterality 11/07/2019 12:30 11/10/2019 9:47 PM CDT PM CDT Checo Sky MD LAB [id number] NSOLICITED RESULTS Performing Organization Address City/State/ZIP Code Phon e Number APS [facility] ALT (10/24/2019 12:30 PM CDT) P athologist Signature ALT (SGPT) 16 10 - 49 U/L APS DAV[facility] Specimen Anatomical Collection Method Collection Time Receive d Time (Source) Location / / Volume Laterality 10/24/2019 12:30 10/27/2019 7:27 PM CDT AM CDT Checo Sky MD LAB BLOOD ORDERABLES Performing Organization Address City/[facility]/ZIP Code Phon e Number APS DAVITA [facility] (ABNORMAL) Glucose, random (10/24/2019 12:30 PM CDT) P athologist Signature Glucose 203 (H) 70 - 99 APS DAVITA mg/dL [facility] Specimen Anatomical Collection Method Collection Time Receive d Time (Source) Location / / Volume Laterality 10/24/2019 12:30 10/27/2019 7:27 PM CDT AM CDT Checo Sky MD LAB BLOOD ORDERABLES Performing Organization Address City/[facility]/ZIP Code Phon e Number APS DAVITA [facility] (ABNORMAL) Creatinine, serum (10/24/2019 12:30 PM CDT) P athologist Signature Creatinine 10.39 (H) 0.70 - APS DAVITA 1.30 mg/dL [facility] Specimen Anatomical Collection Method Collection Time Receive d Time (Source) Location / / Volume Laterality 10/24/2019 12:30 10/27/2019 7:27 PM CDT AM CDT Checo Sky MD LAB BLOOD ORDERABLES Performing Organization Address City/State/ZIP Code Phon e Number APS DAV[facility] Sodium (10/24/2019 12:30 PM CDT) P athologist Signature Sodium 138 132 - 146 APS DAVITA mEq/L [facility] Specimen Anatomical Collection Method Collection Time Receive d Time (Source) Location / / Volume Laterality 10/24/2019 12:30 10/27/2019 7:27 PM CDT AM CDT Checo Sky MD LAB BLOOD ORDERABLES Performing Organization Address City/[facility]/ZIP Code Phon e Number APS DAV[facility] Hepatitis B Surface Antigen (10/24/2019 12:30 PM CDT) P athologist Signature Hep B Surface NEG -NEG APS DAVITA Antigen [facility] Comment: This test utilizes Biotin (Vitamin B7) a s one of it's reagents. Testing may be interfered with in patients consuming Bi otin supplements. Please factor this when reviewing results. Specimen Anatomical Collection Method Collection Time Receive d Time (Source) Location / / Volume Laterality 10/24/2019 12:30 10/27/2019 7:27 PM CDT AM CDT Checo Sky MD LAB BLOOD ORDERABLES Performing Organization Address [facility]/ZIP Code Phon e Number APS DAVITA [facility] (ABNORMAL) Ferritin (10/24/2019 12:30 PM CDT) P athologist Signature Ferritin 462 (H) 22 - 322 APS DAVITA ng/mL [facility] Specimen Anatomical Collection Method Collection Time Receive d Time (Source) Location / / Volume Laterality 10/24/2019 12:30 10/27/2019 7:27 PM CDT AM CDT Checo Sky MD LAB BLOOD ORDERABLES Performing Organization Address City/[facility]/ZIP Code Phon e Number APS DAVITA [facility] (ABNORMAL) KT/V DAUGIRDAS (10/24/2019 12:30 PM CDT) P athologist Signature BUN 71 (H) 9 - 23 APS DAVITA mg/dL [facility] BUN Post 21 9 - 23 APS DAVITA Dialysis mg/dL [facility] URR% 70 65 - 100 % APS DAV[facility] Specimen Anatomical Collection Method Collection Time Receive d Time (Source) Location / / Volume Laterality 10/24/2019 12:30 10/27/2019 7:27 PM CDT AM CDT Checo Sky MD LAB [id number] NSOLICITED RESULTS Performing Organization Address City/[facility]/ZIP Code Phon e Number APS DAVITA [facility] (ABNORMAL) Iron Panel (Fe, TIBC, TSAT) (10/24/2019 12:30 PM CDT) P athologist Signature Iron 67 65 - 175 APS DAVITA ug/dL [facility] TIBC 234 (L) 250 - 425 APS DAVITA ug/dL [facility] UIBC 167 75 - 360 APS DAVITA ug/dL [facility] Iron Saturation 29 21 - 49 % APS DAVITA (TSat) [facility] Specimen Anatomical Collection Method Collection Time Receive d Time (Source) Location / / Volume Laterality 10/24/2019 12:30 10/27/2019 7:27 PM CDT AM CDT Checo Sky MD LAB BLOOD ORDERABLES Performing Organization Address City/State/ZIP Code Phon e Number APS DAVITA [facility] (ABNORMAL) MONTHLY HD W/O CA/PH (10/24/2019 12:30 PM CDT) Patholo gist Method Time Signature Potassium 4.4 3.5 - 5.5 APS DAV[facility] mEq/L [facility] Chloride 103 99 - 109 APS DAVITA mEq/L [facility] Bicarbonate 21 20 - 31 APS DAVITA (CO2) mEq/L [facility] Protein, Total 6.9 5.7 - 8.2 APS DAVITA g/dL [facility] Albumin 3.9 3.2 - 4.8 APS DAVITA g/dL [facility] AST (SGOT) 18 0 - 34 APS DAVITA U/L [facility] LDH 146 120 - 246 APS DAVITA U/L [facility] Alkaline 79 46 - 116 APS DAV[facility] Phosphatase U/L [facility] WBC 6.2 4.5 - APS DAVITA 11.0 x [facility] 10'3 cells/uL RBC 3.31 (L) 4.60 - APS DAVITA 6.20 x [facility] 10'6 cells/uL Hgb 11.3 (L) 14.0 - APS DAVITA 18.0 g/dL [facility] Hematocrit 34.5 (L) 42.0 - APS DAVITA 52.0 % [facility] Hemoglobin x 3 33.9 (L) 42.0 - APS DAVITA 52.0 % [facility] MCV 104.2 (H) 80.0 - APS DAVITA 100.0 fL [facility] MCH 34.0 (H) 27.0 - APS DAVITA 31.0 pg [facility] MCHC 32.6 32.0 - APS DAVITA 36.0 g/dL [facility] RDW 14.7 11.0 - APS DAVITA 15.0 % [facility] Platelets 144 (L) 150 - 400 APS DAVITA x 10'3 [facility] cells/uL Neutrophils % 65.3 % APS DAVITA Auto [facility] Lymphocytes 19.5 % APS DAVITA Manual [facility] Monocytes Manual 9.6 % APS DAVITA [facility] Eosinophil % 4.9 % APS DAVITA [facility] Basophils 0.7 % APS DAVITA Relative [facility] Neutrophils 4,042.07 2,000 - APS DAVITA Absolute 8,800 [facility] Cell/uL Lymphocytes 1,207.05 1,100 - APS DAVITA Absolute 4,800 [facility] Cell/uL Monocytes 594.24 0 - 1,100 APS DAVITA Absolute Cell/uL [facility] Eosinophils 303.31 0 - 700 APS DAVITA Absolute Cell/uL [facility] Basophils 43.33 0 - 400 APS DAVITA Absolute Cell/uL [facility] Comment: Diff percentage results will continue to be reported but without reference ranges per CAP guidelines and will not b e flagged as normal or abnormal. Absolute concentrations of circulating W BC are the preferable method of reporting and will continue to be evalua fareed against established reference ranges. Globulin 3.0 0.9 - 5 g/dL APS DAV[facility] A/G Ratio 1.3 1 - 2.5 Calc APS DAVITA [facility] Specimen Anatomical Collection Method Collection Time Receive d Time (Source) Location / / Volume Laterality 10/24/2019 12:30 10/27/2019 7:27 PM CDT AM CDT Checo Sky MD LAB [id number] NSOLICITED RESULTS Performing Organization Address City/State/ZIP Code Phon e Number APS DAV[facility] documented in this encounter Visit Diagnoses Not on filedocumented in this encounter
--- OUTSIDE RECORDS SUMMARY | 2022-04-17 14:32 | XMS_ITS | Encounter Summary ---
:1940 Author Organization [facility] Address [address] [place] [address] Care Team Providers Name Role Phone Unavailable Primary Care Provider Unavailable Encounter Details Date Type Department Care Team Description 03/12/2020 Orders Only [facility] f Checo Jolly MD [address] [facility] [address] [place] [address] [place] [address] Social History Tobacco Use Types Packs/Day Years Used Date Smoking Tobacco: Never Assessed Sex Assigned at Date Recorded Not on file documented as of this encounter Plan of Treatment Not on filedocumented as of this encounter Procedures Procedure Name Priority Date/Time Associated Comments Diagnosis WOJCIECH/PHOS W/RATI (HC) Routine 04/09/2020 10:45 AM Results for this CLOTH MERCERIZER OPERATOR procedure are i n the results section. KT/V DAUGIRDAS (HC) Routine 04/09/2020 10:45 AM R esults for this CLOTH MERCERIZER OPERATOR procedure are i n the results section. HCT CALC HGBX3 (HC) Routine 04/09/2020 10:45 AM R esults for this CLOTH MERCERIZER OPERATOR procedure are i n the results section. HEMOGLOBIN Routine 04/09/2020 10:45 AM Results for this CLOTH MERCERIZER OPERATOR procedure are i n the results section. POTASSIUM Routine 04/09/2020 10:45 AM Results for this CLOTH MERCERIZER OPERATOR procedure are i n the results section. HCV PANEL NONPROTOCL Routine 03/26/2020 10:45 AM Results for this (HC) CDT procedure are i n the results section. MONTHLY HD W/O CA/PH Routine 03/26/2020 10:45 AM Results for this (HC) CDT procedure are i n the results section. IRON PANEL (FE, Routine 03/26/2020 10:45 AM Resul ts for this TIBC, TSAT) CDT procedure are i n the results section. HEPATITIS B SURFACE Routine 03/26/2020 10:45 AM R esults for this ANTIGEN CDT procedure are i n the results section. ALT Routine 03/26/2020 10:45 AM Results for this CDT procedure are i n the results section. SODIUM Routine 03/26/2020 10:45 AM Results for this CDT procedure are i n the results section. HEMOGLOBIN A1C Routine 03/26/2020 10:45 AM Result s for this CDT procedure are i n the results section. GLUCOSE, RANDOM Routine 03/26/2020 10:45 AM Resul ts for this CDT procedure are i n the results section. FERRITIN Routine 03/26/2020 10:45 AM Results for this CDT procedure are i n the results section. CREATININE, SERUM Routine 03/26/2020 10:45 AM Res ults for this CDT procedure are i n the results section. WOJCIECH/PHOS W/RATI () Routine 03/12/2020 10:45 AM Results for this CDT procedure are i n the results section. KT/V DAUGIRDAS () Routine 03/12/2020 10:45 AM R esults for this CDT procedure are i n the results section. HCT CALC HGBX3 (HC) Routine 03/12/2020 10:45 AM R esults for this CDT procedure are i n the results section. HEMOGLOBIN Routine 03/12/2020 10:45 AM Results for this CDT procedure are i n the results section. POTASSIUM Routine 03/12/2020 10:45 AM Results for this CDT procedure are i n the results section. PTH, INTACT Routine 03/12/2020 10:45 AM Results for this CDT procedure are i n the results section. documented in this encounter Results (ABNORMAL) HCT CALC HGBX3 (04/09/2020 10:45 AM CLOTH MERCERIZER OPERATOR) Analysis Performed At Patho logist Time Signature Hemoglobin x 3 31.2 (L) 42.0 - APS DAVITA 52.0 % [facility] Specimen Anatomical Collection Method Collection Time Receive d Time (Source) Location / / Volume Laterality 04/09/2020 10:45 04/12/2020 AM CLOTH MERCERIZER OPERATOR 11:08 AM CLOTH MERCERIZER OPERATOR Checo Sky MD LAB [id number] NSOLICITED RESULTS Performing Organization Address City/State/ZIP Code Phon e Number APS DAVITA [facility] Potassium (04/09/2020 10:45 AM CLOTH MERCERIZER OPERATOR) athologist Signature Potassium 4.4 3.5 - 5.5 APS DAV[facility] mEq/L [facility] Specimen Anatomical Collection Method Collection Time Receive d Time (Source) Location / / Volume Laterality 04/09/2020 10:45 04/12/2020 AM CLOTH MERCERIZER OPERATOR 11:08 AM CLOTH MERCERIZER OPERATOR Checo Sky MD LAB BLOOD ORDERABLES Performing Organization Address City/[facility]/ZIP Code Phon e Number APS DAVITA [facility] (ABNORMAL) Hemoglobin (04/09/2020 10:45 AM CLOTH MERCERIZER OPERATOR) athologist Signature Hgb 10.4 (L) 14.0 - 18.0 APS DAVITA g/dL [facility] Specimen Anatomical Collection Method Collection Time Receive d Time (Source) Location / / Volume Laterality 04/09/2020 10:45 04/12/2020 AM CLOTH MERCERIZER OPERATOR 11:08 AM CLOTH MERCERIZER OPERATOR Checo Sky MD LAB BLOOD ORDERABLES Performing Organization Address City/[facility]/ZIP Code Phon e Number APS DAVITA [facility] (ABNORMAL) KT/V DAUGIRDAS (04/09/2020 10:45 AM CLOTH MERCERIZER OPERATOR) athologist Signature BUN 72 (H) 9 - 23 APS DAVITA mg/dL [facility] BUN Post 20 9 - 23 APS DAV[facility] Dialysis mg/dL [facility] URR% 72 65 - 100 % APS DAVITA [facility] Specimen Anatomical Collection Method Collection Time Receive d Time (Source) Location / / Volume Laterality 04/09/2020 10:45 04/12/2020 AM CLOTH MERCERIZER OPERATOR 11:08 AM CLOTH MERCERIZER OPERATOR Checo Sky MD LAB [id number] NSOLICITED RESULTS Performing Organization Address City/[facility]/ZIP Code Phon e Number APS DAVITA [facility] WOJCIECH/PHOS W/RATI (04/09/2020 10:45 AM CLOTH MERCERIZER OPERATOR) athologist Signature Calcium 8.9 8.7 - 10.4 APS DAVITA mg/dL [facility] Phosphorus, 4.3 2.4 - 5.1 APS DAVITA Serum mg/dL [facility] CA/PHOS PRODUCT 38.3 21 - 53 APS DAVITA Calc [facility] Corrected 9.0 8.7 - 10.4 APS [facility] Calcium mg/dL [facility] CA*PO4 CORRCTD 38.7 21 - 53 APS DAVITA Calc [facility] Specimen Anatomical Collection Method Collection Time Receive d Time (Source) Location / / Volume Laterality 04/09/2020 10:45 04/12/2020 AM CLOTH MERCERIZER OPERATOR 11:08 AM CLOTH MERCERIZER OPERATOR Checo Sky MD LAB [id number] NSOLICITED RESULTS Performing Organization Address City/[facility]/ZIP Code Phon e Number APS DAVITA [facility] ALT (03/26/2020 10:45 AM CDT) P athologist Signature ALT (SGPT) 16 10 - 49 U/L APS DAVITA [facility] Specimen Anatomical Collection Method Collection Time Receive d Time (Source) Location / / Volume Laterality 03/26/2020 10:45 03/27/2020 3:58 AM CDT PM CDT Checo Sky MD LAB BLOOD ORDERABLES Performing Organization Address [facility]/ZIP Code Phon e Number APS DAVITA [facility] (ABNORMAL) Glucose, random (03/26/2020 10:45 AM CDT) P athologist Signature Glucose 165 (H) 70 - 99 APS DAVITA mg/dL [facility] Specimen Anatomical Collection Method Collection Time Receive d Time (Source) Location / / Volume Laterality 03/26/2020 10:45 03/27/2020 3:58 AM CDT PM CDT Checo Sky MD LAB BLOOD ORDERABLES Performing Organization Address [facility]/ZIP Code Phon e Number APS DAVITA [facility] (ABNORMAL) Creatinine, serum (03/26/2020 10:45 AM CDT) P athologist Signature Creatinine 10.10 (H) 0.70 - APS DAVITA 1.30 mg/dL [facility] Specimen Anatomical Collection Method Collection Time Receive d Time (Source) Location / / Volume Laterality 03/26/2020 10:45 03/27/2020 3:58 AM CDT PM CDT Checo Sky MD LAB BLOOD ORDERABLES Performing Organization Address City/[facility]/ZIP Code Phon e Number APS DAVITA [facility] Sodium (03/26/2020 10:45 AM CDT) P athologist Signature Sodium 137 132 - 146 APS DAVITA mEq/L [facility] Specimen Anatomical Collection Method Collection Time Receive d Time (Source) Location / / Volume Laterality 03/26/2020 10:45 03/27/2020 3:58 AM CDT PM CDT Checo Sky MD LAB BLOOD ORDERABLES Performing Organization Address City/State/ZIP Code Phon e Number APS DAVITA [facility] Hepatitis B Surface Antigen (03/26/2020 10:45 AM CDT) P athologist Signature Hep B Surface NEG -NEG APS DAVITA Antigen [facility] Comment: This test utilizes Biotin (Vitamin B7) a s one of it's reagents. Testing may be interfered with in patients consuming Bi otin supplements. Please factor this when reviewing results. Specimen Anatomical Collection Method Collection Time Receive d Time (Source) Location / / Volume Laterality 03/26/2020 10:45 03/27/2020 3:58 AM CDT PM CDT Checo Sky MD LAB BLOOD ORDERABLES Performing Organization Address [facility]/ZIP Code Phon e Number APS DAVITA [facility] (ABNORMAL) Ferritin (03/26/2020 10:45 AM CDT) P athologist Signature Ferritin 705 (H) 22 - 322 APS DAVITA ng/mL [facility] Specimen Anatomical Collection Method Collection Time Receive d Time (Source) Location / / Volume Laterality 03/26/2020 10:45 03/27/2020 3:58 AM CDT PM CDT Checo Sky MD LAB BLOOD ORDERABLES Performing Organization Address [facility]/ZIP Code Phon e Number APS DAVITA [facility] Hemoglobin A1c (03/26/2020 10:45 AM CDT) P athologist Signature Hemoglobin A1C 5.6 0.0 - 5.6 APS DAVITA %A1c [facility] Specimen Anatomical Collection Method Collection Time Receive d Time (Source) Location / / Volume Laterality 03/26/2020 10:45 03/27/2020 3:58 AM CDT PM CDT Checo Sky MD LAB BLOOD ORDERABLES Performing Organization Address City/[facility]/ZIP Code Phon e Number APS DAVITA [facility] HCV PANEL NONPROTOCL (03/26/2020 10:45 AM CDT) P athologist Signature Hepatitis C 0.09 0.00 - APS DAVITA Antibody 0.79 [facility] [...] Time (Source) Location / / Volume Laterality 03/26/2020 10:45 03/27/2020 3:58 AM CDT PM CDT Checo Sky MD LAB [id number] NSOLICITED RESULTS Performing Organization Address City/State/ZIP Code Phon e Number APS DAVITA [facility] (ABNORMAL) Iron Panel (Fe, TIBC, TSAT) (03/26/2020 10:45 AM CDT) P athologist Signature Iron 108 65 - 175 APS DAVITA ug/dL [facility] TIBC 249 (L) 250 - 425 APS DAVITA ug/dL [facility] UIBC 141 75 - 360 APS DAVITA ug/dL [facility] Iron Saturation 43 21 - 49 % APS DAVITA (TSat) [facility] Specimen Anatomical Collection Method Collection Time Receive d Time (Source) Location / / Volume Laterality 03/26/2020 10:45 03/27/2020 3:58 AM CDT PM CDT Checo Sky MD LAB BLOOD ORDERABLES Performing Organization Address City/State/ZIP Code Phon e Number APS DAVITA [facility] (ABNORMAL) MONTHLY HD W/O CA/PH (03/26/2020 10:45 AM CDT) Patholo gist Method Time Signature Potassium 4.6 3.5 - 5.5 APS DAVITA mEq/L [facility] Chloride 103 99 - 109 APS DAVITA mEq/L [facility] Bicarbonate 21 20 - 31 APS DAVITA (CO2) mEq/L [facility] Protein, Total 6.9 5.7 - 8.2 APS DAVITA g/dL [facility] Albumin 3.9 3.2 - 4.8 APS DAVITA g/dL [facility] AST (SGOT) 16 0 - 34 APS DAVITA U/L [facility] LDH 145 120 - 246 APS DAVITA U/L [facility] Alkaline 133 (H) 46 - 116 APS DAV[facility] Phosphatase U/L [facility] WBC 6.4 4.5 - APS DAVITA 11.0 x [facility] 10'3 cells/uL RBC 3.03 (L) 4.60 - APS DAVITA 6.20 x [facility] 10'6 cells/uL Hgb 10.0 (L) 14.0 - APS DAVITA 18.0 g/dL [facility] Hematocrit 31.2 (L) 42.0 - APS DAVITA 52.0 % [facility] Hemoglobin x 3 30.0 (L) 42.0 - APS DAVITA 52.0 % [facility] MCV 102.7 (H) 80.0 - APS DAVITA 100.0 fL [facility] MCH 32.9 (H) 27.0 - APS DAVITA 31.0 pg [facility] MCHC 32.1 32.0 - APS DAVITA 36.0 g/dL [facility] RDW 14.4 11.0 - APS DAVITA 15.0 % [facility] Platelets 134 (L) 150 - 400 APS DAVITA x 10'3 [facility] cells/uL Neutrophils % 74.7 % APS DAVITA Auto [facility] Lymphocytes 14.4 % APS DAVITA Manual [facility] Monocytes Manual 6.2 % APS DAVITA [facility] Eosinophil % 3.9 % APS DAVITA [facility] Basophils 0.8 % APS DAVITA Relative [facility] Neutrophils 4,765.86 2,000 - APS DAVITA Absolute 8,800 [facility] Cell/uL Lymphocytes 918.72 (L) 1,100 - APS DAVITA Absolute 4,800 [facility] Cell/uL Monocytes 395.56 0 - 1,100 APS DAVITA Absolute Cell/uL [facility] Eosinophils 248.82 0 - 700 APS DAVITA Absolute Cell/uL [facility] Basophils 51.04 0 - 400 APS DAVITA Absolute Cell/uL [...] Time (Source) Location / / Volume Laterality 03/26/2020 10:45 03/27/2020 3:58 AM CDT PM CDT Checo Sky MD LAB [id number] NSOLICITED RESULTS Performing Organization Address City/State/ZIP Code Phon e Number APS DAVITA [facility] (ABNORMAL) HCT CALC HGBX3 (03/12/2020 10:45 AM CDT) Analysis Performed At Patho logist Time Signature Hemoglobin x 3 30.0 (L) 42.0 - APS DAVITA 52.0 % [facility] Specimen Anatomical Collection Method Collection Time Receive d Time (Source) Location / / Volume Laterality 03/12/2020 10:45 03/15/2020 4:38 AM CDT PM CDT Checo Sky MD LAB [id number] NSOLICITED RESULTS Performing Organization Address City/[facility] Code Phon e Number APS DAVITA [facility] (ABNORMAL) PTH, Intact (03/12/2020 10:45 AM CDT) P athologist Signature PTH 202 (H) 18 - 80 APS DAVITA pg/mL [...] Time (Source) Location / / Volume Laterality 03/12/2020 10:45 03/15/2020 4:38 AM CDT PM CDT Checo Sky MD LAB BLOOD ORDERABLES Performing Organization Address City/State/ZIP Code Phon e Number APS DAVITA [facility] Potassium (03/12/2020 10:45 AM CDT) P athologist Signature Potassium 4.7 3.5 - 5.5 APS DAVITA mEq/L [facility] Specimen Anatomical Collection Method Collection Time Receive d Time (Source) Location / / Volume Laterality 03/12/2020 10:45 03/15/2020 4:38 AM CDT PM CDT Checo Sky MD LAB BLOOD ORDERABLES Performing Organization Address City/State/ZIP Code Phon e Number APS DAVIRENE [facility] (ABNORMAL) Hemoglobin (03/12/2020 10:45 AM CDT) P athologist Signature Hgb 10.0 (L) 14.0 - 18.0 APS DAVITA g/dL [facility] Specimen Anatomical Collection Method Collection Time Receive d Time (Source) Location / / Volume Laterality 03/12/2020 10:45 03/15/2020 4:38 AM CDT PM CDT Checo Sky MD LAB BLOOD ORDERABLES Performing Organization Address City/State/ZIP Code Phon e Number APS DAVITA [facility] (ABNORMAL) KT/V DAUGIRDAS (03/12/2020 10:45 AM CDT) P athologist Signature BUN 61 (H) 9 - 23 APS DAVITA mg/dL [facility] BUN Post 16 9 - 23 APS DAVITA Dialysis mg/dL [facility] URR% 74 65 - 100 % APS DAVITA [facility] Specimen Anatomical Collection Method Collection Time Receive d Time (Source) Location / / Volume Laterality 03/12/2020 10:45 03/15/2020 4:38 AM CDT PM CDT Checo Sky MD LAB [id number] NSOLICITED RESULTS Performing Organization Address City/State/ZIP Code Phon e Number APS DAVITA [facility] WOJCIECH/PHOS W/RATI (03/12/2020 10:45 AM CDT) P athologist Signature Calcium 9.0 8.7 - 10.4 APS DAVITA mg/dL [facility] Phosphorus, 3.7 2.4 - 5.1 APS DAVITA Serum mg/dL [facility] CA/PHOS PRODUCT 33.3 21 - 53 APS DAVITA Calc [facility] Corrected 9.0 8.7 - 10.4 APS DAVITA Calcium mg/dL [facility] CA*PO4 CORRCTD 33.3 21 - 53 APS DAVITA Calc [facility] Specimen Anatomical Collection Method Collection Time Receive d Time (Source) Location / / Volume Laterality 03/12/2020 10:45 03/15/2020 4:38 AM CDT PM CDT Checo Sky MD LAB [id number] NSOLICITED RESULTS Performing Organization Address City/State/ZIP Code Phon e Number APS DAVITA [facility] documented in this encounter Visit Diagnoses Not on filedocumented in this encounter
--- OUTSIDE RECORDS SUMMARY | 2022-04-17 14:32 | XMS_ITS | Encounter Summary ---
:1940 Author Organization [facility] Address [address] [place] [address] Care Team Providers Name Role Phone Unavailable Primary Care Provider Unavailable Encounter Details Date Type Department Care Team Description 11/07/2019 Treatment [facility] f Checo Jolly MD [address] [place] [address] [place] [address] [place] [phone] Social History Tobacco Use Types Packs/Day Years Used Date Smoking Tobacco: Never Assessed Sex Assigned at Date Recorded Not on file documented as of this encounter Miscellaneous Notes Dialysis Note - Checo Sky MD - 11/07/2019 10:49 PM CDT Date: Nov 07, 2019 Patient Name: Korey Mackay : 1940 Chart #: [id number] Sex: M This patient was personally seen for a complete visit as part of routine monthly dialysis care. A review of the dialysis treatment, blood pressure, estimated dry weight and recent lab values was made. These were discussed with the patient and staff as necessary. SPECIAL EDUCATION PARAPROFESSIONAL: Checo Sky MD LOCATION: [facility] [phone] SCHEDULE: -- 3rd Shift EDW: kg. DIALYZER: HD DURATION: NEEDLE SIZE: ANTICOAG: BATH: QB: ml/min QD: ml/min Subjective He is recently back from [place] where he spent the winter. he did not like his experience there in the unit. He says he has been very tired at the end of his treatments . His planned pacer placement has been postponed because of Covid 19 and timing of this is not clear. He says heart rate in [place] was not a problem. He has had no further syncopal episodes. He has seen cardiology at [facility] . He did have a syncopal episode at a restaurant after dialysis last Fall. He was out for only a brief period of time. . He thinks he lost consciousness. He was sitting at the time. His called me after they had eaten and after he had gone home. I recommended he go to the ED to get checked but he did not. He presented with a fever since his return and was referred to a PUI unit. As it turns out he had anabscess on his buttock which is being treated now with oral antibiotics. He had two negative tests for Covid 19. He was readmitted to our unit today. Feeling well at the time of this visit. Main complaint is fatigue after dialysis, He denies chest pain or sob. No further syncopal episodes. Advanced Practitioner Subjective Review of Systems Fatigue. [...] made. Treatment and Adequacy Assessment BUN mg/dL 71 (10/24/19) 61 (10/12/19) 63 (10/03/19) 88 (09/26/19) 84 (09/12/19) CREATININE (MG/DL) IN SER/PLAS mg/dL 10.39 (10/24/19) 11.34 (09/26/19) 10.94 (09/12/19) 10.05 (05/23/19) 10.60 (04/25/19) URR% % 70 (10/24/19) 67 (10/12/19) 67 (10/03/19) 66 (09/26/19) 67 (09/12/19) KT/V, DAUGIRDAS II (CALC) TNP (02/21/19) Dialysis is adequate. Achieves prescribed time - Yes Achieves prescribed frequency - Yes Vascular Access Assessment Type of access: Catheter Surgeon - [facility], Access center in [place]. Staff and patient report access is working well. Anemia Assessment WBC (BLOOD) x 103 cells/uL 6.2 (10/24/19) 6.4 (09/26/19) 9.4 (09/12/19) 7.6 (05/23/19) 7.9 (04/25/19) HGB g/dL 11.3 (10/24/19) 11.2 (10/12/19) 10.9 (09/26/19) 11.2 (09/12/19) 10.4 (05/23/19) PLATELETS x 103 cells/uL 144 (10/24/19) 151 (09/26/19) 134 (09/12/19) 139 (05/23/19) 164 (04/25/19) IRON SATURATION % 29 (10/24/19) 21 (09/26/19) 23 (09/12/19) 28 (05/23/19) 24 (04/25/19) FERRITIN ng/mL 462 (10/24/19) 364 (09/26/19) 543 (09/12/19) 460 (05/23/19) 488 (04/25/19) Hemoglobin is above goal. Iron Saturation is at goal. Ferritin is at goal. Will adjust MISTY and intravenous iron per protocol. Nutritional and Metabolic Assessment ALBUMIN (G/DL) g/dL 3.9 (10/24/19) 3.7 (09/26/19) 3.9 (09/12/19) 3.8 (05/23/19) 4.0 (04/25/19) SODIUM mEq/L 138 (10/24/19) 142 (09/26/19) 140 (09/12/19) 141 (05/23/19) 137 (04/25/19) POTASSIUM (MMOL/L) IN SER/PLAS mEq/L 4.4 (10/24/19) 4.2 (10/12/19) 4.4 (09/26/19) 3.7 (09/12/19) 4.0 (05/23/19) BICARBONATE (CO2) mEq/L 21 (10/24/19) 25 (09/26/19) 19 (09/12/19) 23 (05/23/19) 22 (04/25/19) Albumin is below goal. Encourage high-biological value protein intake. Oral Nutritional Supplement program. Potassium is at goal. Bicarbonate is below goal. Bone and Mineral Metabolism Assessment CALCIUM mg/dL 8.6 (10/12/19) 9.0 (09/12/19) 9.0 (05/09/19) 8.5 (04/11/19) 8.5 (03/14/19) CORRECTED CALCIUM mg/dL 8.8 (10/12/19) 9.1 (09/12/19) 9.0 (05/09/19) 8.7 (04/11/19) 8.7 (03/14/19) PHOSPHORUS mg/dL 5.1 (10/12/19) 2.6 (09/12/19) 5.1 (05/09/19) 4.9 (04/11/19) 4.9 (03/14/19) CA*PO4 CORRCTD Calc 44.9 (10/12/19) 23.7 (09/12/19) 45.9 (05/09/19) 42.6 (04/11/19) 42.6 (03/14/19) IPTH pg/mL 121 (09/12/19) 226 (03/14/19) 262 (12/06/18) Corrected Calcium is at goal. Phosphorous is at goal. Ca X P product is at goal. Intact PTH is below goal. Powerplant Operator will adjust binders and vitamin D per protocol and continue to provide dietary education. Cardiovascular Assessment Blood pressures reviewed and are acceptable. Intradialytic weight gains are appropriate. Estimated dry weight is too low, will increase. Dry wt may be too low will cautiously adjust. Transplant Status: Resuscitation Status Doing well on dialysis. Hgb is at goal, adjusting epo dose. as needed. Seeing cardiology re slow heart rate. Cardiology now feels he needs a pacer but on hold now in view of Covid 19. Pth is low and phos also low. Adequacy is at goal fistula developing using two needles.Line removed. Checo Sky MD [ Signed And locked electronically On 11/07/2019 at 10:53:48 PM ] Transcribed: Checo Sky ( 11/07/2019 ) documented in this encounter Plan of Treatment Not on filedocumented as of this encounter Visit Diagnoses Not on filedocumented in this encounter
--- OUTSIDE RECORDS SUMMARY | 2022-04-17 14:32 | XMS_ITS | Encounter Summary ---
:1940 Author Organization [facility] Address [address] [place] [address] Care Team Providers Name Role Phone Unavailable Primary Care Provider Unavailable Encounter Details Date Type Department Care Team Description 04/23/2020 Orders Only [facility] Checo Jolly [facility] [address] [facility] [address] [place] [address] [place] [address] Social History Tobacco Use Types Packs/Day Years Used Date Smoking Tobacco: Never Assessed Sex Assigned at Date Recorded Not on file documented as of this encounter Plan of Treatment Not on filedocumented as of this encounter Procedures Procedure Name Priority Date/Time Associated Diagnosis Comme nts COVID-19 Routine 04/30/2020 10:45 AM Results for this J[employer] WE[employer]ELOPER procedure are i n the results section. MONTHLY HD W/O Routine 04/23/2020 10:45 AM Result s for this CA/PH (HC) [employer]ELOPER procedure are i n the results section. IRON PANEL (FE, Routine 04/23/2020 10:45 AM Resul ts for this TIBC, TSAT) [employer]OPER procedure are i n the results section. HEPATITIS B SURFACE Routine 04/23/2020 10:45 AM R esults for this ANTIGEN [employer] procedure are i n the results section. ALT Routine 04/23/2020 10:45 AM Results for this [employer] WE[employer] DEVELOPER procedure are i n the results section. SODIUM Routine 04/23/2020 10:45 AM Results for this [employer] WE[employer] DEVELOPER procedure are i n the results section. GLUCOSE, RANDOM Routine 04/23/2020 10:45 AM Resul ts for this [employer] WE[employer] DEVELOPER procedure are i n the results section. FERRITIN Routine 04/23/2020 10:45 AM Results for this [employer] WE[employer] DEVELOPER procedure are i n the results section. CREATININE, SERUM Routine 04/23/2020 10:45 AM Res ults for this J[employer] WE[employer] DEVELOPER procedure are i n the results section. documented in this encounter Results COVID-19 (04/30/2020 10:45 AM JAVA WEB DEVELOPER) P athologist Signature SARS CoV-2 by NEG ADIN RAYO PCR [facility] Comment: [05-01-2020 18:09] ?? RESULTS: The speci men is NEGATIVE for SARS-CoV-2, the coronavirus associated with COVID-19. A negative result does not rule out the possibility of COVID-19 and should not b e used as the sole basis for patient management decisions. [05-01-2020 18:09] ?? Source: [place] REFERENCE RANGE: NEGATIVE Test performed on the Sumerian 5 PCR platform This test has been authorized by the FDA under an Emergency Use Authorization (EUA) for use by authorized laboratories . Please review the Fact Sheets for th e health care providers, and patients and the FDA authorized labeling availabl e on the MetaNotes website: https://intranet.Jigsaw/Depts/Labs/P ages/default.aspx Specimen Anatomical Collection Method Collection Time Receive d Time (Source) Location / / Volume Laterality 04/30/2020 10:45 05/01/2020 AM JAVA WEB DEVELOPER 10:25 AM JAVA WEB DEVELOPER Checo Sky MD LAB MICROBIOLOGY - GENERAL O RDERABLES Performing Organization Address City/State/ZIP Code Phon e Number ADIN RAYO [facility] ALT (04/23/2020 10:45 AM JAVA WEB DEVELOPER) P athologist Signature ALT (SGPT) 16 10 - 49 U/L ADIN RAYO [facility] Specimen Anatomical Collection Method Collection Time Receive d Time (Source) Location / / Volume Laterality 04/23/2020 10:45 04/24/2020 8:40 AM JAVA WEB DEVELOPER AM JAVA WEB DEVELOPER Checo Sky MD LAB BLOOD ORDERABLES Performing Organization Address City/State/ZIP Code Phon e Number ADIN RAYO [facility] Glucose, random (04/23/2020 10:45 AM JAVA WEB DEVELOPER) P athologist Signature Glucose 82 70 - 99 APS JARRODIRENE mg/dL [facility] Specimen Anatomical Collection Method Collection Time Receive d Time (Source) Location / / Volume Laterality 04/23/2020 10:45 04/24/2020 8:40 AM JAVA WEB DEVELOPER AM JAVA WEB DEVELOPER Checo Sky MD LAB BLOOD ORDERABLES Performing Organization Address City/State/ZIP Code Phon e Number APS DAVITA [facility] (ABNORMAL) Creatinine, serum (04/23/2020 10:45 AM JAVA WEB DEVELOPER) P athologist Signature Creatinine 10.04 (H) 0.70 - APS DAVITA 1.30 mg/dL [facility] Specimen Anatomical Collection Method Collection Time Receive d Time (Source) Location / / Volume Laterality 04/23/2020 10:45 04/24/2020 8:40 AM JAVA WEB DEVELOPER AM JAVA WEB DEVELOPER Checo Sky MD LAB BLOOD ORDERABLES Performing Organization Address [facility] [address]/[facility] Phon e Number APS DAVITA [facility] Sodium (04/23/2020 10:45 AM JAVA WEB DEVELOPER) P athologist Signature Sodium 137 132 - 146 APS DAVITA mEq/L [facility] Specimen Anatomical Collection Method Collection Time Receive d Time (Source) Location / / Volume Laterality 04/23/2020 10:45 04/24/2020 8:40 AM JAVA WEB DEVELOPER AM JAVA WEB DEVELOPER Checo Sky MD LAB BLOOD ORDERABLES Performing Organization Address [facility] [address]/[facility] Phon e Number APS DAVITA [facility] Hepatitis B Surface Antigen (04/23/2020 10:45 AM JAVA WEB DEVELOPER) P athologist Signature Hep B Surface NEG -NEG APS DAVITA Antigen [facility] Comment: This test utilizes Biotin (Vitamin B7) a s one of it's reagents. Testing may be interfered with in patients consuming Bi otin supplements. Please factor this when reviewing results. Specimen Anatomical Collection Method Collection Time Receive d Time (Source) Location / / Volume Laterality 04/23/2020 10:45 04/24/2020 8:40 AM JAVA WEB DEVELOPER AM JAVA WEB DEVELOPER Checo Sky MD LAB BLOOD ORDERABLES Performing Organization Address [facility] [address]/[facility] Code Phon e Number APS DAVITA [facility] (ABNORMAL) Ferritin (04/23/2020 10:45 AM JAVA WEB DEVELOPER) P athologist Signature Ferritin 687 (H) 22 - 322 APS DAVITA ng/mL [facility] Specimen Anatomical Collection Method Collection Time Receive d Time (Source) Location / / Volume Laterality 04/23/2020 10:45 04/24/2020 8:40 AM JAVA WEB DEVELOPER AM JAVA WEB DEVELOPER Checo Sky MD LAB BLOOD ORDERABLES Performing Organization Address City/State/ZIP Code Phon e Number APS DAVITA [facility] (ABNORMAL) Iron Panel (Fe, TIBC, TSAT) (04/23/2020 10:45 AM JAVA WEB DEVELOPER) P athologist Signature Iron 92 65 - 175 APS DAVITA ug/dL [facility] TIBC 245 (L) 250 - 425 APS DAVITA ug/dL [facility] UIBC 153 75 - 360 APS DAVITA ug/dL [facility] Iron Saturation 38 21 - 49 % APS DAVITA (TSat) [facility] Specimen Anatomical Collection Method Collection Time Receive d Time (Source) Location / / Volume Laterality 04/23/2020 10:45 04/24/2020 8:40 AM JAVA WEB DEVELOPER AM JAVA WEB DEVELOPER Checo Sky MD LAB BLOOD ORDERABLES Performing Organization Address City/State/ZIP Code Phon e Number APS DAVITA [facility] (ABNORMAL) MONTHLY HD W/O CA/PH (04/23/2020 10:45 AM JAVA WEB DEVELOPER) Patholo gist Method Time Signature Potassium 4.4 3.5 - 5.5 APS DAVITA mEq/L [facility] Chloride 100 99 - 109 APS DAVITA mEq/L [facility] Bicarbonate 24 20 - 31 APS DAVITA (CO2) mEq/L [facility] Protein, Total 7.2 5.7 - 8.2 APS DAVITA g/dL [facility] Albumin 4.1 3.2 - 4.8 APS DAVITA g/dL [facility] AST (SGOT) 15 0 - 34 APS DAVITA U/L [facility] LDH 154 120 - 246 APS DAVITA U/L [facility] Alkaline 124 (H) 46 - 116 APS DAVITA Phosphatase U/L [facility] WBC 6.0 4.5 - APS DAVITA 11.0 x [facility] 10'3 cells/uL RBC 3.36 (L) 4.60 - APS DAVITA 6.20 x [facility] 10'6 cells/uL Hgb 11.1 (L) 14.0 - APS DAVITA 18.0 g/dL [facility] Hematocrit 33.9 (L) 42.0 - APS DAVITA 52.0 % [facility] Hemoglobin x 3 33.3 (L) 42.0 - APS DAVITA 52.0 % [facility] MCV 101.1 (H) 80.0 - APS DAVITA 100.0 fL [facility] MCH 33.1 (H) 27.0 - APS DAVITA 31.0 pg [facility] MCHC 32.7 32.0 - APS DAVITA 36.0 g/dL [facility] RDW 14.3 11.0 - APS DAVITA 15.0 % [facility] Platelets 155 150 - 400 APS DAVITA x 10'3 [facility] cells/uL Neutrophils % 71.1 % APS DAVITA Auto [facility] Lymphocytes 16.9 % APS DAVITA Manual [facility] Monocytes Manual 6.9 % APS DAVITA [facility] Eosinophil % 4.4 % APS DAVITA [facility] Basophils 0.7 % APS DAVITA Relative [facility] Neutrophils 4,258.89 2,000 - APS DAVITA Absolute 8,800 [facility] Cell/uL Lymphocytes 1,012.31 1,100 - APS DAVITA Absolute (L) 4,800 [facility] Cell/uL Monocytes 413.31 0 - 1,100 APS DAVITA Absolute Cell/uL [facility] Eosinophils 263.56 0 - 700 APS DAVITA Absolute Cell/uL [facility] Basophils 41.93 0 - 400 APS DAVITA Absolute Cell/uL [...] Time (Source) Location / / Volume Laterality 04/23/2020 10:45 04/24/2020 8:40 AM JAVA WEB DEVELOPER AM JAVA WEB DEVELOPER Checo Sky MD LAB [id number] NSOLICITED RESULTS Performing Organization Address City/State/ZIP Code Phon e Number APS DAVITA [facility] documented in this encounter Visit Diagnoses Not on filedocumented in this encounter
--- OUTSIDE RECORDS SUMMARY | 2022-04-17 14:32 | XMS_ITS | Encounter Summary ---
:1940 Author Organization [facility] Address [address] [place] [address] Care Team Providers Name Role Phone Unavailable Primary Care Provider Unavailable Encounter Details Date Type Department Care Team Description 12/05/2019 Orders Only [facility] f Checo Jolly MD [address] [facility] [address] [place] [address] [place] [address] Social History Tobacco Use Types Packs/Day Years Used Date Smoking Tobacco: Never Assessed Sex Assigned at Date Recorded Not on file documented as of this encounter Plan of Treatment Not on filedocumented as of this encounter Procedures Procedure Name Priority Date/Time Associated Comments Diagnosis HCV PANEL PROTOCOL Routine 12/26/2019 10:45 AM Re sults for this (HC) CDT procedure are i n the results section. MONTHLY HD W/O CA/PH Routine 12/26/2019 10:45 AM Results for this (HC) CDT procedure are i n the results section. IRON PANEL (FE, Routine 12/26/2019 10:45 AM Resul ts for this TIBC, TSAT) CDT procedure are i n the results section. HEPATITIS B SURFACE Routine 12/26/2019 10:45 AM R esults for this ANTIGEN CDT procedure are i n the results section. ALT Routine 12/26/2019 10:45 AM Results for this CDT procedure are i n the results section. SODIUM Routine 12/26/2019 10:45 AM Results for this CDT procedure are i n the results section. HEMOGLOBIN A1C Routine 12/26/2019 10:45 AM Result s for this CDT procedure are i n the results section. GLUCOSE, RANDOM Routine 12/26/2019 10:45 AM Resul ts for this CDT procedure are i n the results section. FERRITIN Routine 12/26/2019 10:45 AM Results for this CDT procedure are i n the results section. CREATININE, SERUM Routine 12/26/2019 10:45 AM Res ults for this CDT procedure are i n the results section. KT/V DAUGIRDAS (HC) Routine 12/21/2019 10:45 AM R esults for this CDT procedure are i n the results section. KT/V DAUGIRDAS (HC) Routine 12/19/2019 10:45 AM R esults for this CDT procedure are i n the results section. WOJCIECH/PHOS W/RATI (HC) Routine 12/12/2019 10:45 AM Results for this CDT procedure are i n the results section. KT/V DAUGIRDAS (HC) Routine 12/12/2019 10:45 AM R esults for this CDT procedure are i n the results section. HCT CALC HGBX3 (HC) Routine 12/12/2019 10:45 AM R esults for this CDT procedure are i n the results section. HEMOGLOBIN Routine 12/12/2019 10:45 AM Results for this CDT procedure are i n the results section. POTASSIUM Routine 12/12/2019 10:45 AM Results for this CDT procedure are i n the results section. PTH, INTACT Routine 12/12/2019 10:45 AM Results for this CDT procedure are i n the results section. PHOSPHATE ( Routine 12/05/2019 10:45 AM Results for this PHOSPHORUS) CDT procedure are i n the results section. documented in this encounter Results (ABNORMAL) Ferritin (12/26/2019 10:45 AM CDT) P athologist Signature Ferritin 622 (H) 22 - 322 APS DAVITA ng/mL [facility] Specimen Anatomical Collection Method Collection Time Receive d Time (Source) Location / / Volume Laterality 12/26/2019 10:45 12/27/2019 8:44 AM CDT AM CDT Checo Sky MD LAB BLOOD ORDERABLES Performing Organization Address City/State/ZIP Code Phon e Number APS DAVITA [facility] ALT (12/26/2019 10:45 AM CDT) P athologist Signature ALT (SGPT) 12 10 - 49 U/L APS DAVITA [facility] Specimen Anatomical Collection Method Collection Time Receive d Time (Source) Location / / Volume Laterality 12/26/2019 10:45 12/27/2019 8:44 AM CDT AM CDT Checo Sky MD LAB BLOOD ORDERABLES Performing Organization Address City/State/ZIP Code Phon e Number ADIN RAYO [facility] (ABNORMAL) Glucose, random (12/26/2019 10:45 AM CDT) P athologist Signature Glucose 191 (H) 70 - 99 APS DAVITA mg/dL [facility] Specimen Anatomical Collection Method Collection Time Receive d Time (Source) Location / / Volume Laterality 12/26/2019 10:45 12/27/2019 8:44 AM CDT AM CDT Checo Sky MD LAB BLOOD ORDERABLES Performing Organization Address City/[facility]/ZIP Code Phon e Number ADIN RAYO [facility] (ABNORMAL) Creatinine, serum (12/26/2019 10:45 AM CDT) P athologist Signature Creatinine 9.95 (H) 0.70 - 1.30 APS DAVITA mg/dL [facility] Specimen Anatomical Collection Method Collection Time Receive d Time (Source) Location / / Volume Laterality 12/26/2019 10:45 12/27/2019 8:44 AM CDT AM CDT Checo Sky MD LAB BLOOD ORDERABLES Performing Organization Address City/[facility]/ZIP Code Phon e Number ADIN RAYO [facility] Sodium (12/26/2019 10:45 AM CDT) P athologist Signature Sodium 138 132 - 146 APS DAVITA mEq/L [facility] Specimen Anatomical Collection Method Collection Time Receive d Time (Source) Location / / Volume Laterality 12/26/2019 10:45 12/27/2019 8:44 AM CDT AM CDT Checo Sky MD LAB BLOOD ORDERABLES Performing Organization Address City/[facility]/ZIP Code Phon e Number APS DAVIRENE [facility] Hepatitis B Surface Antigen (12/26/2019 10:45 AM CDT) P athologist Signature Hep B Surface NEG -NEG APS DAVITA Antigen [facility] Comment: This test utilizes Biotin (Vitamin B7) a s one of it's reagents. Testing may be interfered with in patients consuming Bi otin supplements. Please factor this when reviewing results. Specimen Anatomical Collection Method Collection Time Receive d Time (Source) Location / / Volume Laterality 12/26/2019 10:45 12/27/2019 8:44 AM CDT AM CDT Checo Sky MD LAB BLOOD ORDERABLES Performing Organization Address City/State/ZIP Code Phon e Number ADIN PEPPERMMN (ABNORMAL) Hemoglobin A1c (12/26/2019 10:45 AM CDT) P athologist Signature Hemoglobin A1C 5.9 (H) 0.0 - 5.6 APS DAVITA %A1c [facility] Specimen Anatomical Collection Method Collection Time Receive d Time (Source) Location / / Volume Laterality 12/26/2019 10:45 12/27/2019 8:44 AM CDT AM CDT Checo Sky MD LAB BLOOD ORDERABLES Performing Organization Address City/[facility]/ZIP Code Phon e Number ADIN PEPPERMMN HCV PANEL PROTOCOL (12/26/2019 10:45 AM CDT) P athologist Signature Hepatitis C 0.10 0.00 - APS DAVITA Antibody 0.79 [facility] [...] Time (Source) Location / / Volume Laterality 12/26/2019 10:45 12/27/2019 8:44 AM CDT AM CDT Checo Sky MD LAB [id number] NSOLICITED RESULTS Performing Organization Address City/State/ZIP Code Phon e Number ADIN RAYO [facility] (ABNORMAL) Iron Panel (Fe, TIBC, TSAT) (12/26/2019 10:45 AM CDT) P athologist Signature Iron 93 65 - 175 APS DAVITA ug/dL [facility] TIBC 223 (L) 250 - 425 APS DAVITA ug/dL [facility] UIBC 130 75 - 360 APS DAVITA ug/dL [facility] Iron Saturation 42 21 - 49 % APS DAVITA (TSat) [facility] Specimen Anatomical Collection Method Collection Time Receive d Time (Source) Location / / Volume Laterality 12/26/2019 10:45 12/27/2019 8:44 AM CDT AM CDT Checo Sky MD LAB BLOOD ORDERABLES Performing Organization Address City/State/ZIP Code Phon e Number APS DAVITA [facility] (ABNORMAL) MONTHLY HD W/O CA/PH (12/26/2019 10:45 AM CDT) [facility] gist Method Time Signature Potassium 4.9 3.5 - 5.5 APS DAVITA mEq/L [facility] Chloride 100 99 - 109 APS DAVITA mEq/L [facility] Bicarbonate 25 20 - 31 APS DAVITA (CO2) mEq/L [facility] Protein, Total 6.9 5.7 - 8.2 APS DAVITA g/dL [facility] Albumin 3.8 3.2 - 4.8 APS DAVITA g/dL [facility] AST (SGOT) 12 0 - 34 APS DAVITA U/L [facility] LDH 148 120 - 246 APS DAVITA U/L [facility] Alkaline 90 46 - 116 APS DAVITA Phosphatase U/L [facility] WBC 7.3 4.5 - APS DAVITA 11.0 x [facility] 10'3 cells/uL RBC 3.28 (L) 4.60 - APS DAVITA 6.20 x [facility] 10'6 cells/uL Hgb 10.9 (L) 14.0 - APS DAVITA 18.0 g/dL [facility] Hematocrit 33.3 (L) 42.0 - APS DAVITA 52.0 % [facility] Hemoglobin x 3 32.7 (L) 42.0 - APS DAVITA 52.0 % [facility] MCV 101.7 (H) 80.0 - APS DAVITA 100.0 fL [facility] MCH 33.4 (H) 27.0 - APS DAVITA 31.0 pg [facility] MCHC 32.9 32.0 - APS DAVITA 36.0 g/dL [facility] RDW 13.6 11.0 - APS DAVITA 15.0 % [facility] Platelets 160 150 - 400 APS DAVITA x 10'3 [facility] cells/uL Neutrophils % 77.0 % APS DAVITA Auto [facility] Lymphocytes 11.5 % APS DAVITA Manual [facility] Monocytes Manual 5.9 % APS DAVITA [facility] Eosinophil % 4.9 % APS DAVITA [facility] Basophils 0.6 % APS DAVITA Relative [facility] Neutrophils 5,651.80 2,000 - APS DAVITA Absolute 8,800 [facility] Cell/uL Lymphocytes 844.10 (L) 1,100 - APS DAVITA Absolute 4,800 [facility] Cell/uL Monocytes 433.06 0 - 1,100 APS DAVITA Absolute Cell/uL [facility] Eosinophils 359.66 0 - 700 APS DAVITA Absolute Cell/uL [facility] Basophils 44.04 0 - 400 APS DAVITA Absolute Cell/uL [...] Time (Source) Location / / Volume Laterality 12/26/2019 10:45 12/27/2019 8:44 AM CDT AM CDT Checo Sky MD LAB [id number] NSOLICITED RESULTS Performing Organization Address City/State/ZIP Code Phon e Number APS DAVITA [facility] (ABNORMAL) KT/V DAUGIRDAS (12/21/2019 10:45 AM CDT) P athologist Signature BUN 46 (H) 9 - 23 APS DAVITA mg/dL [facility] BUN Post 13 9 - 23 APS DAVITA Dialysis mg/dL [facility] URR% 72 65 - 100 % APS DAVITA [facility] Specimen Anatomical Collection Method Collection Time Receive d Time (Source) Location / / Volume Laterality 12/21/2019 10:45 12/22/2019 9:50 AM CDT AM CDT Checo Sky MD LAB [id number] NSOLICITED RESULTS Performing Organization Address City/State/ZIP Code Phon e Number APS DAVITA [facility] (ABNORMAL) KT/V DAUGIRDAS (12/19/2019 10:45 AM CDT) P athologist Signature BUN 59 (H) 9 - 23 APS DAVITA mg/dL [facility] BUN Post 16 9 - 23 APS DAVITA Dialysis mg/dL [facility] URR% 73 65 - 100 % APS DAVITA [facility] Specimen Anatomical Collection Method Collection Time Receive d Time (Source) Location / / Volume Laterality 12/19/2019 10:45 12/20/2019 9:36 AM CDT AM CDT Checo Sky MD LAB [id number] NSOLICITED RESULTS Performing Organization Address City/State/ZIP Code Phon e Number APS DAVITA [facility] (ABNORMAL) PTH, Intact (12/12/2019 10:45 AM CDT) P athologist Signature PTH 238 (H) 18 - 80 APS DAVITA pg/mL [...] Time (Source) Location / / Volume Laterality 12/12/2019 10:45 12/13/2019 8:38 AM CDT AM CDT Checo Sky MD LAB BLOOD ORDERABLES Performing Organization Address City/State/ZIP Code Phon e Number APS DAVITA [facility] (ABNORMAL) HCT CALC HGBX3 (12/12/2019 10:45 AM CDT) Analysis Performed At Patho logist Time Signature Hemoglobin x 3 33.0 (L) 42.0 - APS DAVITA 52.0 % [facility] Specimen Anatomical Collection Method Collection Time Receive d Time (Source) Location / / Volume Laterality 12/12/2019 10:45 12/13/2019 8:38 AM CDT AM CDT Checo Sky MD LAB [id number] NSOLICITED RESULTS Performing Organization Address City/State/ZIP Code Phon e Number APS DAVITA [facility] Potassium (12/12/2019 10:45 AM CDT) P athologist Signature Potassium 4.3 3.5 - 5.5 APS DAVITA mEq/L [facility] Specimen Anatomical Collection Method Collection Time Receive d Time (Source) Location / / Volume Laterality 12/12/2019 10:45 12/13/2019 8:38 AM CDT AM CDT Checo Sky MD LAB BLOOD ORDERABLES Performing Organization Address City/State/ZIP Code Phon e Number APS DAVIRENE [facility] (ABNORMAL) Hemoglobin (12/12/2019 10:45 AM CDT) P athologist Signature Hgb 11.0 (L) 14.0 - 18.0 APS DAVITA g/dL [facility] Specimen Anatomical Collection Method Collection Time Receive d Time (Source) Location / / Volume Laterality 12/12/2019 10:45 12/13/2019 8:38 AM CDT AM CDT Checo Sky MD LAB BLOOD ORDERABLES Performing Organization Address City/State/ZIP Code Phon e Number APS DAVITA [facility] (ABNORMAL) KT/V DAUGIRDAS (12/12/2019 10:45 AM CDT) P athologist Signature BUN 64 (H) 9 - 23 APS DAVITA mg/dL [facility] BUN Post TNP mg/dL APS DAVITA Dialysis [facility] Comment: Recollect - Specimen not sent p er order URR% See Below 65 - 100 % APS DAVITA [facility] Comment: Unable to Calculate Specimen Anatomical Collection Method Collection Time Receive d Time (Source) Location / / Volume Laterality 12/12/2019 10:45 12/13/2019 8:38 AM CDT AM CDT Checo Sky MD LAB [id number] NSOLICITED RESULTS Performing Organization Address City/State/ZIP Code Phon e Number APS DAVITA [facility] WOJCIECH/PHOS W/RATI (12/12/2019 10:45 AM CDT) P athologist Signature Calcium 9.0 8.7 - 10.4 APS DAVITA mg/dL [facility] Phosphorus, 4.2 2.4 - 5.1 APS DAVITA Serum mg/dL [facility] CA/PHOS PRODUCT 37.8 21 - 53 APS DAVITA Calc [facility] Corrected 9.1 8.7 - 10.4 APS DAVITA Calcium mg/dL [facility] CA*PO4 CORRCTD 38.2 21 - 53 APS DAVITA Calc [facility] Specimen Anatomical Collection Method Collection Time Receive d Time (Source) Location / / Volume Laterality 12/12/2019 10:45 12/13/2019 8:38 AM CDT AM CDT Checo Sky MD LAB [id number] NSOLICITED RESULTS Performing Organization Address City/State/ZIP Code Phon e Number APS DAVITA [facility] Phosphorus (12/05/2019 10:45 AM CDT) P athologist Signature Phosphorus, 4.5 2.4 - 5.1 APS DAVITA Serum mg/dL [facility] Specimen Anatomical Collection Method Collection Time Receive d Time (Source) Location / / Volume Laterality 12/05/2019 10:45 12/06/2019 8:26 AM CDT AM CDT Checo Sky MD LAB BLOOD ORDERABLES Performing Organization Address City/State/ZIP Code Phon e Number APS DAVITA [facility] documented in this encounter Visit Diagnoses Not on filedocumented in this encounter
--- OUTSIDE RECORDS SUMMARY | 2022-04-17 14:32 | XMS_ITS | Encounter Summary ---
:1940 Author Organization [facility] Address [address] [place] [address] Care Team Providers Name Role Phone Unavailable Primary Care Provider Unavailable Encounter Details Date Type Department Care Team Description 04/09/2020 Treatment [facility] Checo Jolly MD [address] [place] [address] [place] [address] [place], [place] [phone] Social History Tobacco Use Types Packs/Day Years Used Date Smoking Tobacco: Never Assessed Sex Assigned at Date Recorded Not on file documented as of this encounter Miscellaneous Notes Dialysis Note - Checo Sky MD - 04/09/2020 3:06 PM CST Date: Apr 09, 2020 Patient Name: Korey Mackay : 1940 Chart #: [id number] Sex: M This patient was personally seen for a complete visit as part of routine monthly dialysis care. A review of the dialysis treatment, blood pressure, estimated dry weight and recent lab values was made. These were discussed with the patient and staff as necessary. BEAN WEIGHER: Checo Sky MD LOCATION: [phone] SCHEDULE: -W- 3rd Shift EDW: kg. DIALYZER: HD DURATION: NEEDLE SIZE: ANTICOAG: BATH: QB: ml/min QD: ml/min Subjective since his return from [place] he has had a pacer placed for [...] to the cardiology clinic twice for this. They adjusted the pacer and he no longer has thesymptom He denies other sx. Denies dizziness or [...] to [place] soon for the winter. Advanced Practitioner Subjective Review of Systems Fatigue. [...] Treatment and Adequacy Assessment BUN mg/dL 61 (03/12/20) 60 (02/15/20) 58 (01/09/20) 46 (12/21/19) 59 (12/19/19) CREATININE (MG/DL) IN SER/PLAS mg/dL 10.10 (03/26/20) 9.47 (02/27/20) 10.03 (01/23/20) 9.95 (12/26/19) 10.18 (11/21/19) URR% % 74 (03/12/20) 73 (02/15/20) 74 (01/09/20) 72 (12/21/19) 73 (12/19/19) Dialysis is adequate. Achieves prescribed time - Yes Achieves prescribed frequency - Yes Vascular Access Assessment Type of access: Catheter Surgeon - [facility], Access center in [place]. Staff and patient report access is working well. Anemia Assessment WBC (BLOOD) x 103 cells/uL 6.4 (03/26/20) [...] (02/27/20) 768 (01/23/20) 622 (12/26/19) 657 (11/21/19) Hemoglobin is at goal. Iron Saturation is at goal. Ferritin is above goal. Will adjust MISTY and intravenous iron per protocol. Nutritional and Metabolic Assessment ALBUMIN (G/DL) g/dL 3.9 (03/26/20) 4.0 (02/27/20) 3.8 (01/23/20) 3.8 (12/26/19) 3.9 (11/21/19) SODIUM mEq/L 137 (03/26/20) 140 (02/27/20) 138 (01/23/20) 138 (12/26/19) 136 (11/21/19) POTASSIUM (MMOL/L) IN SER/PLAS mEq/L 4.6 (03/26/20) 4.7 (03/12/20) 4.3 (02/27/20) 4.6 (02/10/20) 4.6 (01/23/20) BICARBONATE (CO2) mEq/L 21 (03/26/20) 21 (02/27/20) 27 (01/23/20) 25 (12/26/19) 24 (11/21/19) Albumin is below goal. Encourage high-biological value protein intake. Oral Nutritional Supplement program. Potassium is at goal. Bicarbonate is at goal. Bone and Mineral Metabolism Assessment CALCIUM mg/dL 9.0 (03/12/20) 9.2 (02/10/20) 8.9 (01/09/20) 9.0 (12/12/19) 8.7 (11/07/19) CORRECTED CALCIUM mg/dL 9.0 (03/12/20) 9.4 (02/10/20) 9.1 (01/09/20) 9.1 (12/12/19) 8.8 (11/07/19) PHOSPHORUS mg/dL 3.7 (03/12/20) 4.3 (02/10/20) 4.4 (01/09/20) 4.2 (12/12/19) 4.5 (12/05/19) CA*PO4 CORRCTD Calc 33.3 (03/12/20) 40.4 (02/10/20) 40.0 (01/09/20) 38.2 (12/12/19) 50.2 (11/07/19) IPTH pg/mL 202 (03/12/20) 238 (12/12/19) 121 (09/12/19) Corrected Calcium is at goal. Phosphorous is at goal. Ca X P product is at goal. Intact PTH is at goal. Roll Grinder Operator will adjust binders and vitamin D [...] MD [ Signed And locked electronically On 04/09/2020 at 03:18:16 PM ] Transcribed: Checo Sky ( 04/09/2020 ) documented in this encounter Plan of Treatment Not on filedocumented as of this encounter Visit Diagnoses Not on filedocumented in this encounter
--- OUTSIDE RECORDS SUMMARY | 2022-04-17 14:32 | XMS_ITS | Encounter Summary ---
:1940 Author Organization [facility] Address [address] [place] [address] Care Team Providers Name Role Phone Unavailable Primary Care Provider Unavailable Encounter Details Date Type Department Care Team Description 03/19/2020 Treatment [facility] Checo Jolly MD [address] [place] [address] [place] [address] [place], [place] [phone] Social History Tobacco Use Types Packs/Day Years Used Date Smoking Tobacco: Never Assessed Sex Assigned at Date Recorded Not on file documented as of this encounter Miscellaneous Notes Dialysis Note - Checo Sky MD - 03/19/2020 3:09 PM CDT Date: Mar 19, 2020 Patient Name: Korey Mackay : 1940 Chart #: [id number] Sex: M This patient was personally seen for a basic visit as part of routine weekly dialysis care. A reviewof the dialysis treatment, blood pressure, estimated dry weight and recent lab values was made. These were discussed with the patient and staff as necessary. GRAPPLE YARDER OPERATOR: Checo Sky MD LOCATION: [place] [phone] SCHEDULE: -W- 3rd Shift ACCESS: EDW: kg. [...] he has a small amount of edema. Advanced Practitioner Subjective: Fatigue. Problem List Description [...] 59 (12/19/19) CREATININE (MG/DL) IN SER/PLAS mg/dL 9.47 (02/27/20) 10.03 (01/23/20) 9.95 (12/26/19) 10.18 (11/21/19) 10.39 (10/24/19) URR% % 74 (03/12/20) 73 (02/15/20) 74 (01/09/20) 72 (12/21/19) 73 (12/19/19) WBC (BLOOD) x 103 cells/uL 6.8 (02/27/20) 6.0 (01/23/20) 7.3 (12/26/19) 6.2 (11/21/19) 6.2 (10/24/19) HGB g/dL 10.0 (03/12/20) 10.6 (02/27/20) 10.5 (02/10/20) 10.4 (01/23/20) 11.4 (01/09/20) PLATELETS x 103 cells/uL 143 (02/27/20) 132 (01/23/20) 160 (12/26/19) 149 (11/21/19) 144 (10/24/19) IRON SATURATION % 46 (02/27/20) 34 (01/23/20) 42 (12/26/19) 30 (11/21/19) 29 (10/24/19) FERRITIN ng/mL 723 (02/27/20) 768 (01/23/20) 622 (12/26/19) 657 (11/21/19) 462 (10/24/19) ALBUMIN (G/DL) g/dL 4.0 (02/27/20) 3.8 (01/23/20) 3.8 (12/26/19) 3.9 (11/21/19) 3.9 (10/24/19) SODIUM mEq/L 140 (02/27/20) 138 (01/23/20) 138 (12/26/19) 136 (11/21/19) 138 (10/24/19) POTASSIUM (MMOL/L) IN SER/PLAS mEq/L 4.7 (03/12/20) 4.3 (02/27/20) 4.6 (02/10/20) 4.6 (01/23/20) 4.4 (01/09/20) BICARBONATE (CO2) mEq/L 21 (02/27/20) 27 (01/23/20) 25 (12/26/19) 24 (11/21/19) 21 (10/24/19) CALCIUM mg/dL 9.0 (03/12/20) 9.2 (02/10/20) 8.9 [...] Assessment: Type of access: Catheter Surgeon - [facility], Access center in [place]. Staff and patient report access is working well. Impression and Plan Stable on dialysis Phos pth calcium are at goal. Hgb is at goal Alb is at goal. says he is eating well . he is getting liquicel here. More alert and stronger since pacer, though still gets very fatigued after dialysis. Phos is at goal He says he is taking binder. Access functioning well. Doing well on dialysis. Checo Sky MD [ Signed And locked electronically On 03/19/2020 at 03:12:41 PM ] Transcribed: Checo Sky ( 03/19/2020 ) documented in this encounter Plan of Treatment Not on filedocumented as of this encounter Visit Diagnoses Not on filedocumented in this encounter
--- OUTSIDE RECORDS SUMMARY | 2022-04-17 14:33 | XMS_ITS | Encounter Summary ---
:1940 Author Organization [facility] Address [address] [place] [address] Care Team Providers Name Role Phone Unavailable Primary Care Provider Unavailable Encounter Details Date Type Department Care Team Description 04/06/2019 Treatment [facility] Checo Jolly MD [address] [place] [address] [place] [address] [place], [place] [phone] Social History Tobacco Use Types Packs/Day Years Used Date Smoking Tobacco: Never Assessed Sex Assigned at Date Recorded Not on file documented as of this encounter Miscellaneous Notes Dialysis Note - Checo Sky MD - 04/06/2019 12:36 PM CDT Date: Apr 06, 2019 Patient Name: Korey Mackay : 1940 Chart #: [id number] Sex: M This patient was personally seen for a basic visit as part of routine weekly dialysis care. A reviewof the dialysis treatment, blood pressure, estimated dry weight and recent lab values was made. These were discussed with the patient and staff as necessary. HEAD OF MARKETING ADOMETRY: Checo Sky MD LOCATION: [phone] SCHEDULE: -- 3rd Shift ACCESS: EDW: kg. DIALYZER: HD DURATION: NEEDLE SIZE: ANTICOAG: BATH: QB: ml/min QD: ml/min Subjective He is tired at the end of his dialysis treatments. He doesn't feel the best. Heart rate remains low. He is seeing cardiology. ep service at [facility] who feel he does not need a pacemaker. He is using his fistula now andwill get his line removed. BP is high when he comes but comes down with the dialysis treatments. Will check with the [facility] chart to see what his pressures are at other times. He denies chest pain or sob. He is going to discuss home therapies with home dialysis nurse. Appetite is good. Edema has completely disappeared. His BP has been in good control. Advanced Practitioner Subjective: Fatigue. 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 Cardiovascular Regular rate. Regular rhythm. No murmur heard. Edema - No leg edema. Medication List No medication list is available. Allergy List No allergy list is available. Medications reviewed and no changes were made. BUN mg/dL 76 (03/14/19) 73 (02/16/19) 65 (01/12/19) TNP (01/10/19) 57 (12/06/18) CREATININE (MG/DL) IN SER/PLAS mg/dL 10.94 (03/28/19) 10.40 (02/21/19) 10.96 (01/24/19) 8.68 (12/20/18) 7.26 (11/22/18) URR% % 71 (03/14/19) 74 (02/16/19) 71 (01/12/19) 74 (12/06/18) 74 (11/08/18) KT/V, DAUGIRDAS II (CALC) TNP (02/21/19) WBC (BLOOD) x 103 cells/uL 7.4 (03/28/19) 6.6 (02/21/19) 9.0 (01/24/19) 6.7 (12/20/18) 7.2 (11/22/18) HGB g/dL 10.4 (03/28/19) 9.9 (03/14/19) 10.9 (02/21/19) 11.0 (02/16/19) 11.0 (01/24/19) PLATELETS x 103 cells/uL 157 (03/28/19) 187 (02/21/19) 155 (01/24/19) 172 (12/20/18) 181 (11/22/18) IRON SATURATION % 28 (03/28/19) 28 (02/25/19) TNP (02/21/19) 26 (01/26/19) 20 (12/20/18) FERRITIN ng/mL 395 (03/28/19) 688 (02/21/19) 397 (01/26/19) 272 (12/20/18) 413 (11/22/18) ALBUMIN (G/DL) g/dL 3.7 (03/28/19) 3.8 (02/21/19) 3.9 (01/24/19) 3.9 (12/20/18) 3.9 (11/22/18) SODIUM mEq/L 141 (03/28/19) 136 (02/21/19) 137 (01/24/19) 139 (12/20/18) 136 (11/22/18) POTASSIUM (MMOL/L) IN SER/PLAS mEq/L 3.7 (03/28/19) 4.4 (02/25/19) TNP (02/21/19) 4.4 (01/24/19) 3.7 (12/20/18) BICARBONATE mEq/L 21 (03/28/19) 20 (02/21/19) 22 (01/24/19) 24 (12/20/18) TNP (11/22/18) CALCIUM mg/dL 8.5 (03/14/19) 8.7 (02/21/19) 9.4 (01/12/19) Pending (01/10/19) 8.7 (12/06/18) CORRECTED CALCIUM mg/dL 8.7 (03/14/19) 8.9 (02/21/19) 9.5 (01/12/19) 8.8 (12/06/18) 9.1 (11/08/18) PHOSPHORUS mg/dL 4.9 (03/14/19) 5.1 (02/21/19) 3.3 (01/12/19) Pending (01/10/19) 5.1 (12/06/18) CA*PO4 CORRCTD Calc 42.6 (03/14/19) 45.4 (02/21/19) 31.4 (01/12/19) 44.9 (12/06/18) 37.3 (11/08/18) IPTH pg/mL 226 (03/14/19) 262 (12/06/18) 202 (11/03/18) CALCIUM mg/dL 8.5 (03/14/19) 8.7 (02/21/19) 9.4 (01/12/19) Pending (01/10/19) 8.7 (12/06/18) CA/PHOS PRODUCT Calc 41.7 (03/14/19) 44.4 (02/21/19) 31.0 (01/12/19) 44.4 (12/06/18) 36.9 (11/08/18) CORRECTED CALCIUM mg/dL 8.7 (03/14/19) 8.9 (02/21/19) 9.5 (01/12/19) 8.8 (12/06/18) 9.1 (11/08/18) PHOSPHORUS mg/dL 4.9 (03/14/19) 5.1 (02/21/19) 3.3 (01/12/19) Pending (01/10/19) 5.1 (12/06/18) IPTH pg/mL 226 (03/14/19) 262 (12/06/18) 202 (11/03/18) Vascular Access Assessment: Type of access: Catheter Surgeon - [facility] Staff and patient report access is working well. Impression and Plan Stable on dialysis Phos pth are at goal. Hgb is at goal Alb almost at goal at 3.8, says he is eating well . Will be getting supplements. We discussed this. heart rate remains low. No syncope. Cardiology feels he does not need pacer. Now using access, Permcath to come out tomorrow. BP is high predialysis but low at the end. Would like to see how he is at other times and places. BP variable, Some days excellent. I think we need to raise the dry weight. Doing well on dialysis. Checo Sky MD [ Signed And locked electronically On 04/06/2019 at 12:42:33 PM ] Transcribed: Checo Sky ( 04/06/2019 ) documented in this encounter Plan of Treatment Not on filedocumented as of this encounter Visit Diagnoses Not on filedocumented in this encounter
--- OUTSIDE RECORDS SUMMARY | 2022-04-17 14:33 | XMS_ITS | Encounter Summary ---
:1940 Author Organization [facility] Address [address] [place] [address] Care Team Providers Name Role Phone Unavailable Primary Care Provider Unavailable Encounter Details Date Type Department Care Team Description 03/14/2019 Orders Only [facility] f Checo Jolly MD [address] [facility]3] ALAN S S TE [address] [place] [address] [place] [address] Social History Tobacco Use Types Packs/Day Years Used Date Smoking Tobacco: Never Assessed Sex Assigned at Date Recorded Not on file documented as of this encounter Plan of Treatment Not on filedocumented as of this encounter Procedures Procedure Name Priority Date/Time Associated Comments Diagnosis WOJCIECH/PHOS W/RATI (HC) Routine 04/11/2019 11:45 AM Results for this RECORDS ASSOCIATE procedure are i n the results section. KT/V DAUGIRDAS (HC) Routine 04/11/2019 11:45 AM R esults for this RECORDS ASSOCIATE procedure are i n the results section. HCT CALC HGBX3 (HC) Routine 04/11/2019 11:45 AM R esults for this RECORDS ASSOCIATE procedure are i n the results section. HEMOGLOBIN Routine 04/11/2019 11:45 AM Results for this RECORDS ASSOCIATE procedure are i n the results section. HCV PANEL NONPROTOCL Routine 03/28/2019 11:45 AM Results for this (HC) CDT procedure are i n the results section. MONTHLY HD W/O CA/PH Routine 03/28/2019 11:45 AM Results for this (HC) CDT procedure are i n the results section. IRON PANEL (FE, Routine 03/28/2019 11:45 AM Resul ts for this TIBC, TSAT) CDT procedure are i n the results section. HEPATITIS B SURFACE Routine 03/28/2019 11:45 AM R esults for this ANTIGEN CDT procedure are i n the results section. ALT Routine 03/28/2019 11:45 AM Results for this CDT procedure are i n the results section. SODIUM Routine 03/28/2019 11:45 AM Results for this CDT procedure are i n the results section. HEMOGLOBIN A1C Routine 03/28/2019 11:45 AM Result s for this CDT procedure are i n the results section. GLUCOSE, RANDOM Routine 03/28/2019 11:45 AM Resul ts for this CDT procedure are i n the results section. FERRITIN Routine 03/28/2019 11:45 AM Results for this CDT procedure are i n the results section. CREATININE, SERUM Routine 03/28/2019 11:45 AM Res ults for this CDT procedure are i n the results section. WOJCIECH/PHOS W/RATI () Routine 03/14/2019 11:45 AM Results for this CDT procedure are i n the results section. KT/V DAUGIRDAS () Routine 03/14/2019 11:45 AM R esults for this CDT procedure are i n the results section. HCT CALC HGBX3 () Routine 03/14/2019 11:45 AM R esults for this CDT procedure are i n the results section. HEMOGLOBIN Routine 03/14/2019 11:45 AM Results for this CDT procedure are i n the results section. PTH, INTACT Routine 03/14/2019 11:45 AM Results for this CDT procedure are i n the results section. documented in this encounter Results (ABNORMAL) Hemoglobin (04/11/2019 11:45 AM RECORDS ASSOCIATE) P athologist Signature Hgb 10.4 (L) 14.0 - 18.0 APS DAVITA g/dL [facility] Specimen Anatomical Collection Method Collection Time Receive d Time (Source) Location / / Volume Laterality 04/11/2019 11:45 04/14/2019 AM RECORDS ASSOCIATE 12:57 PM RECORDS ASSOCIATE Checo Sky MD LAB BLOOD ORDERABLES Performing Organization Address City/State/ZIP Code Phon e Number APS DAVITA [facility] (ABNORMAL) HCT CALC HGBX3 (04/11/2019 11:45 AM RECORDS ASSOCIATE) Analysis Performed At Patho logist Time Signature Hemoglobin x 3 31.2 (L) 42.0 - APS DAVITA 52.0 % [facility] Specimen Anatomical Collection Method Collection Time Receive d Time (Source) Location / / Volume Laterality 04/11/2019 11:45 04/14/2019 AM RECORDS ASSOCIATE 12:57 PM RECORDS ASSOCIATE Checo Sky MD LAB [id number] NSOLICITED RESULTS Performing Organization Address City/State/ZIP Code Phon e Number APS DAVITA [facility] (ABNORMAL) KT/V DAUGIRDAS (04/11/2019 11:45 AM RECORDS ASSOCIATE) P athologist Signature BUN 87 (H) 9 - 23 APS DAVITA mg/dL [facility] BUN Post 25 (H) 9 - 23 APS DAVITA Dialysis mg/dL [facility] URR% 71 65 - 100 % APS DAVITA [facility] Specimen Anatomical Collection Method Collection Time Receive d Time (Source) Location / / Volume Laterality 04/11/2019 11:45 04/14/2019 AM RECORDS ASSOCIATE 12:57 PM RECORDS ASSOCIATE Checo Sky MD LAB [id number] NSOLICITED RESULTS Performing Organization Address City/State/ZIP Code Phon e Number APS DAVITA [facility] (ABNORMAL) WOJCIECH/PHOS W/RATI (04/11/2019 11:45 AM RECORDS ASSOCIATE) P athologist Signature Calcium 8.5 (L) 8.7 - 10.4 APS DAVITA mg/dL [facility] Phosphorus, 4.9 2.4 - 5.1 APS DAVITA Serum mg/dL [facility] CA/PHOS 41.7 21 - 53 APS DAVITA PRODUCT Calc [facility] Corrected 8.7 8.7 - 10.4 APS DAV[facility] Calcium mg/dL [facility] CA*PO4 CORRCTD 42.6 21 - 53 APS DAVITA Calc [facility] Specimen Anatomical Collection Method Collection Time Receive d Time (Source) Location / / Volume Laterality 04/11/2019 11:45 04/14/2019 AM RECORDS ASSOCIATE 12:57 PM RECORDS ASSOCIATE Checo Sky MD LAB [id number] NSOLICITED RESULTS Performing Organization Address City/State/ZIP Code Phon e Number APS DAVITA [facility] ALT (03/28/2019 11:45 AM CDT) P athologist Signature ALT (SGPT) 12 10 - 49 U/L APS DAVITA [facility] Specimen Anatomical Collection Method Collection Time Receive d Time (Source) Location / / Volume Laterality 03/28/2019 11:45 03/29/2019 9:25 AM CDT AM CDT Checo Sky MD LAB BLOOD ORDERABLES Performing Organization Address City/State/ZIP Code Phon e Number ADIN RAYO [facility] (ABNORMAL) Glucose, random (03/28/2019 11:45 AM CDT) P athologist Signature Glucose 168 (H) 70 - 99 APS DAVITA mg/dL [facility] Specimen Anatomical Collection Method Collection Time Receive d Time (Source) Location / / Volume Laterality 03/28/2019 11:45 03/29/2019 9:25 AM CDT AM CDT Checo Sky MD LAB BLOOD ORDERABLES Performing Organization Address City/State/ZIP Code Phon e Number ADIN RAYO [facility] (ABNORMAL) Creatinine, serum (03/28/2019 11:45 AM CDT) P athologist Signature Creatinine 10.94 (H) 0.70 - APS DAVITA 1.30 mg/dL [facility] Specimen Anatomical Collection Method Collection Time Receive d Time (Source) Location / / Volume Laterality 03/28/2019 11:45 03/29/2019 9:25 AM CDT AM CDT Checo Sky MD LAB BLOOD ORDERABLES Performing Organization Address City/State/ZIP Code Phon e Number ADIN RAYO [facility] Sodium (03/28/2019 11:45 AM CDT) P athologist Signature Sodium 141 132 - 146 APS DAVITA mEq/L [facility] Specimen Anatomical Collection Method Collection Time Receive d Time (Source) Location / / Volume Laterality 03/28/2019 11:45 03/29/2019 9:25 AM CDT AM CDT Checo Sky MD LAB BLOOD ORDERABLES Performing Organization Address City/State/ZIP Code Phon e Number ADIN RAYO [facility] Hepatitis B Surface Antigen (03/28/2019 11:45 AM CDT) P athologist Signature Hep B Surface NEG -NEG APS DAVITA Antigen [facility] Specimen Anatomical Collection Method Collection Time Receive d Time (Source) Location / / Volume Laterality 03/28/2019 11:45 03/29/2019 9:25 AM CDT AM CDT Checo Sky MD LAB BLOOD ORDERABLES Performing Organization Address City/State/ZIP Code Phon e Number APS PERRI [facility] (ABNORMAL) Ferritin (03/28/2019 11:45 AM CDT) athologist Signature Ferritin 395 (H) 22 - 322 APS PERRI ng/mL [facility] Specimen Anatomical Collection Method Collection Time Receive d Time (Source) Location / / Volume Laterality 03/28/2019 11:45 03/29/2019 9:25 AM CDT AM CDT Checo Sky MD LAB BLOOD ORDERABLES Performing Organization Address City/State/ZIP Code Phon e Number APS PERRI [facility] (ABNORMAL) Hemoglobin A1c (03/28/2019 11:45 AM CDT) athologist Signature Hemoglobin A1C 5.7 (H) 0.0 - 5.6 APS PERRI %A1c [facility] Specimen Anatomical Collection Method Collection Time Receive d Time (Source) Location / / Volume Laterality 03/28/2019 11:45 03/29/2019 9:25 AM CDT AM CDT Checo Sky MD LAB BLOOD ORDERABLES Performing Organization Address City/[facility]/ZIP Code Phon e Number APS PERRI [facility] HCV PANEL NONPROTOCL (03/28/2019 11:45 AM CDT) athologist Signature Hepatitis C 0.12 0.00 - APS DAVITA Antibody 0.79 [facility] Comment: INDEX VALUE INTERPRETATION/COMMENT: < 0.80 Nonreactive, No HCV Antibody dete cted - considered NEGATIVE. >=0.80 - <1.00 considered EQUIVOCAL. >=1.00 considered REACTIVE. HCV RNA PCR Quantitative see comments log AP S PERRI [facility] Comment: Canceled, testing not indicated . Specimen Anatomical Collection Method Collection Time Receive d Time (Source) Location / / Volume Laterality 03/28/2019 11:45 03/29/2019 9:25 AM CDT AM CDT Checo Sky MD LAB [id number] NSOLICITED RESULTS Performing Organization Address City/[facility]/ZIP Code Phon e Number APS PERRI [facility] (ABNORMAL) Iron Panel (Fe, TIBC, TSAT) (03/28/2019 11:45 AM CDT) P athologist Signature Iron 62 (L) 65 - 175 APS DAVITA ug/dL [facility] TIBC 219 (L) 250 - 425 APS DAVITA ug/dL [facility] UIBC 157 75 - 360 APS DAVITA ug/dL [facility] Iron Saturation 28 21 - 49 % APS DAVITA (TSat) [facility] Specimen Anatomical Collection Method Collection Time Receive d Time (Source) Location / / Volume Laterality 03/28/2019 11:45 03/29/2019 9:25 AM CDT AM CDT Checo Sky MD LAB BLOOD ORDERABLES Performing Organization Address City/State/ZIP Code Phon e Number APS DAVITA [facility] (ABNORMAL) MONTHLY HD W/O CA/PH (03/28/2019 11:45 AM CDT) Patholo gist Method Time Signature Potassium 3.7 3.5 - 5.5 APS DAVITA mEq/L [facility] Chloride 104 99 - 109 APS DAVITA mEq/L [facility] Bicarbonate 21 20 - 31 APS DAVITA (CO2) mEq/L [facility] Protein, Total 6.7 5.7 - 8.2 APS DAVITA g/dL [facility] Albumin 3.7 3.2 - 4.8 APS DAVITA g/dL [facility] AST (SGOT) 14 0 - 34 APS DAVITA U/L [facility] LDH 155 120 - 246 APS DAVITA U/L [facility] Alkaline 67 46 - 116 APS DAVITA Phosphatase U/L [facility] WBC 7.4 4.5 - APS DAVITA 11.0 x [facility] 10'3 cells/uL RBC 3.25 (L) 4.60 - APS DAVITA 6.20 x [facility] 10'6 cells/uL Hgb 10.4 (L) 14.0 - APS DAVITA 18.0 g/dL [facility] Hematocrit 32.1 (L) 42.0 - APS DAVITA 52.0 % [facility] MCV 98.8 80.0 - APS DAVITA 100.0 fL [facility] MCH 32.1 (H) 27.0 - APS DAVITA 31.0 pg [facility] MCHC 32.5 32.0 - APS DAVITA 36.0 g/dL [facility] RDW 14.7 11.0 - APS DAVITA 15.0 % [facility] Platelets 157 150 - 400 APS DAVITA x 10'3 [facility] cells/uL Neutrophils % 74.9 % APS DAVITA Auto [facility] Lymphocytes 12.8 % APS DAVITA Manual [facility] Monocytes Manual 6.2 % APS DAVITA [facility] Eosinophil % 5.6 % APS DAVITA [facility] Basophils 0.5 % APS DAVITA Relative [facility] Neutrophils 5,550.09 2,000 - APS DAVITA Absolute 8,800 [facility] Cell/uL Lymphocytes 948.48 (L) 1,100 - APS DAVITA Absolute 4,800 [facility] Cell/uL Monocytes 459.42 0 - 1,100 APS DAVITA Absolute Cell/uL [facility] Eosinophils 414.96 0 - 700 APS DAVITA Absolute Cell/uL [facility] Basophils 37.05 0 - 400 APS DAVITA Absolute Cell/uL [...] Calc APS DAVITA [facility] Hemoglobin x 3 31.2 (L) 42.0 - 52.0 % APS DAVITA [facility] Specimen Anatomical Collection Method Collection Time Receive d Time (Source) Location / / Volume Laterality 03/28/2019 11:45 03/29/2019 9:25 AM CDT AM CDT Checo Sky MD LAB [id number] NSOLICITED RESULTS Performing Organization Address City/State/ZIP Code Phon e Number APS DAVITA [facility] (ABNORMAL) PTH, intact (03/14/2019 11:45 AM CDT) P athologist Signature PTH 226 (H) 18 - 80 APS DAVITA pg/mL [facility] Comment: METHODOLOGY: SIEMENS Reference range changed as of June 08, 2017. Specimen Anatomical Collection Method Collection Time Receive d Time (Source) Location / / Volume Laterality 03/14/2019 11:45 03/17/2019 8:43 AM CDT AM CDT Checo Sky MD LAB BLOOD ORDERABLES Performing Organization Address City/State/ZIP Code Phon e Number APS DAVITA [facility] (ABNORMAL) HCT CALC HGBX3 (03/14/2019 11:45 AM CDT) Analysis Performed At Patho logist Time Signature Hemoglobin x 3 29.7 (L) 42.0 - APS DAVITA 52.0 % [facility] Specimen Anatomical Collection Method Collection Time Receive d Time (Source) Location / / Volume Laterality 03/14/2019 11:45 03/17/2019 8:43 AM CDT AM CDT Checo kSy MD LAB [id number] NSOLICITED RESULTS Performing Organization Address City/State/ZIP Code Phon e Number APS DAVITA [facility] (ABNORMAL) Hemoglobin (03/14/2019 11:45 AM CDT) P athologist Signature Hgb 9.9 (L) 14.0 - 18.0 APS DAVITA g/dL [facility] Specimen Anatomical Collection Method Collection Time Receive d Time (Source) Location / / Volume Laterality 03/14/2019 11:45 03/17/2019 8:43 AM CDT AM CDT Checo Sky MD LAB BLOOD ORDERABLES Performing Organization Address City/State/ZIP Code Phon e Number APS DAVITA [facility] (ABNORMAL) KT/V DAUGIRDAS (03/14/2019 11:45 AM CDT) P athologist Signature BUN 76 (H) 9 - 23 APS DAVITA mg/dL [facility] BUN Post 22 9 - 23 APS DAVITA Dialysis mg/dL [facility] URR% 71 65 - 100 % APS DAVITA [facility] Specimen Anatomical Collection Method Collection Time Receive d Time (Source) Location / / Volume Laterality 03/14/2019 11:45 03/17/2019 8:43 AM CDT AM CDT Checo Sky MD LAB [id number] NSOLICITED RESULTS Performing Organization Address City/State/ZIP Code Phon e Number APS DAVITA [facility] (ABNORMAL) WOJCIECH/PHOS W/RATI (03/14/2019 11:45 AM CDT) P athologist Signature Calcium 8.5 (L) 8.7 - 10.4 APS DAVITA mg/dL [facility] Phosphorus, 4.9 2.4 - 5.1 APS DAVITA Serum mg/dL [facility] CA/PHOS 41.7 21 - 53 APS DAVITA PRODUCT Calc [facility] Corrected 8.7 8.7 - 10.4 APS DAVITA Calcium mg/dL [facility] CA*PO4 CORRCTD 42.6 21 - 53 APS DAVITA Calc [facility] Specimen Anatomical Collection Method Collection Time Receive d Time (Source) Location / / Volume Laterality 03/14/2019 11:45 03/17/2019 8:43 AM CDT AM CDT Checo Sky MD LAB [id number] NSOLICITED RESULTS Performing Organization Address City/State/ZIP Code Phon e Number APS DAVITA [facility] documented in this encounter Visit Diagnoses Not on filedocumented in this encounter
--- OUTSIDE RECORDS SUMMARY | 2022-04-17 14:33 | XMS_ITS ---
:1940 Author Care Team Providers Name Role Phone MaheshMeir Primary Care Provider Unavailable Allergies Code Code System Name Reaction Severity Status Onset 071534 RxNorm Lipitor Other ? Active ? 80524 RxNorm Lisinopril ? ? Active ? 6915 RxNorm Metoclopramide ? ? Active ? 7046 RxNorm Omeprazole Diarrhea ? Active ? Medications No Medications Reported Problems None recorded. Procedures None recorded. Results Lab Results None recorded. Past Encounters None recorded. Social History None recorded. Vaccine List Vaccine Type COVID-19, mRNA, LNP-S, PF, 30 mcg/0.3 mL dose (Meusonic) 08/03/2020?0.3 mL 08/23/2020?0.3 mL Plan of Care Reminders Provider Appointments None recorded. ? ? Lab None recorded. ? ? Referral None recorded. ? ? Procedures None recorded. ? ? Surgeries None recorded. ? ? Imaging None recorded. ? ? Vitals None recorded.
--- OUTSIDE RECORDS SUMMARY | 2022-04-17 14:33 | XMS_ITS | Encounter Summary ---
:1940 Author Organization [facility] Address [address] [place] [address] Care Team Providers Name Role Phone Unavailable Primary Care Provider Unavailable Encounter Details Date Type Department Care Team Description 05/16/2019 Treatment [facility] f Checo Jolly MD [address] [place] [address] [place] [address] [place], [place] [phone] Social History Tobacco Use Types Packs/Day Years Used Date Smoking Tobacco: Never Assessed Sex Assigned at Date Recorded Not on file documented as of this encounter Miscellaneous Notes Dialysis Note - Checo Sky MD - 05/16/2019 4:12 PM CST Date: May 16, 2019 Patient Name: Korey Mackay : 1940 Chart #: [id number] Sex: M This patient was personally seen for a complete visit as part of routine monthly dialysis care. A review of the dialysis treatment, blood pressure, estimated dry weight and recent lab values was made. These were discussed with the patient and staff as necessary. VICE PRESIDENT OF SALES: Checo Sky MD LOCATION: [place] [phone] SCHEDULE: -- 3rd Shift EDW: kg. DIALYZER: HD DURATION: NEEDLE SIZE: ANTICOAG: BATH: QB: ml/min QD: ml/min Subjective He is tired at the end of his dialysis treatments. Heart rate is a little better and ranges from high 40's to low 70's cardiology from [facility]. They at first did not recommend a pacer but now feel he will need one. But havn't scheduled a pacer til he gets back to [place] from [place] in September He is using his fistula now and has had his line removed. He did have a syncopal episode at a restaurant after dialysis. He was out for only a brief period of time. . He thinks he lost consciousness. He was sitting at the time. His called me after they had eaten and after he had gone home. I recommended he go to the ED to get checked but he did not. Since this episode the nurses feel his pulse is a little faster though he is still occasionally in the 40's Generally runs [id number] and 71 while he is here. He denies chest pain or sob. He is going to discuss home therapies with home dialysis nurse. We did discuss transplant . I explained that the waiting time is about 5 y ears and that there are increased risks for someone his age. Appetite is good. Edema has completely disappeared. His bp is variable. Easily getting to dry weight. Advanced Practitioner Subjective Review of Systems Fatigue. [...] made. Treatment and Adequacy Assessment BUN mg/dL 74 (05/09/19) 87 (04/11/19) 76 (03/14/19) 73 (02/16/19) 65 (01/12/19) CREATININE (MG/DL) IN SER/PLAS mg/dL 10.60 (04/25/19) 10.94 (03/28/19) 10.40 (02/21/19) 10.96 (01/24/19) 8.68 (12/20/18) URR% % 68 (05/09/19) 71 (04/11/19) 71 (03/14/19) 74 (02/16/19) 71 (01/12/19) KT/V, DAUGIRDAS II (CALC) TNP (02/21/19) Dialysis is adequate. Achieves prescribed time - Yes Achieves prescribed frequency - Yes Vascular Access Assessment Type of access: Catheter Surgeon - [facility], Access center in [place]. Staff and patient report access is working well. Anemia Assessment WBC (BLOOD) x 103 cells/uL 7.9 (04/25/19) 7.4 (03/28/19) 6.6 (02/21/19) 9.0 (01/24/19) 6.7 (12/20/18) HGB g/dL 11.8 (05/09/19) 10.6 (04/25/19) 10.4 (04/11/19) 10.4 (03/28/19) 9.9 (03/14/19) PLATELETS x 103 cells/uL 164 (04/25/19) 157 (03/28/19) 187 (02/21/19) 155 (01/24/19) 172 (12/20/18) IRON SATURATION % 24 (04/25/19) 28 (03/28/19) 28 (02/25/19) TNP (02/21/19) 26 (01/26/19) FERRITIN ng/mL 488 (04/25/19) 395 (03/28/19) 688 (02/21/19) 397 (01/26/19) 272 (12/20/18) Hemoglobin is above goal. Iron Saturation is below goal. Ferritin is at goal. Will adjust MISTY and intravenous iron per protocol. Nutritional and Metabolic Assessment ALBUMIN (G/DL) g/dL 4.0 (04/25/19) 3.7 (03/28/19) 3.8 (02/21/19) 3.9 (01/24/19) 3.9 (12/20/18) SODIUM mEq/L 137 (04/25/19) 141 (03/28/19) 136 (02/21/19) 137 (01/24/19) 139 (12/20/18) POTASSIUM (MMOL/L) IN SER/PLAS mEq/L 4.6 (05/09/19) 4.4 (04/25/19) 3.7 (03/28/19) 4.4 (02/25/19) TNP (02/21/19) BICARBONATE mEq/L 22 (04/25/19) 21 (03/28/19) 20 (02/21/19) 22 (01/24/19) 24 (12/20/18) Albumin is below goal. Encourage high-biological value protein intake. Oral Nutritional Supplement program. Potassium is at goal. Bicarbonate is below goal. Bone and Mineral Metabolism Assessment CALCIUM mg/dL 9.0 (05/09/19) 8.5 (04/11/19) 8.5 (03/14/19) 8.7 (02/21/19) 9.4 (01/12/19) CORRECTED CALCIUM mg/dL 9.0 (05/09/19) 8.7 (04/11/19) 8.7 (03/14/19) 8.9 (02/21/19) 9.5 (01/12/19) PHOSPHORUS mg/dL 5.1 (05/09/19) 4.9 (04/11/19) 4.9 (03/14/19) 5.1 (02/21/19) 3.3 (01/12/19) CA*PO4 CORRCTD Calc 45.9 (05/09/19) 42.6 (04/11/19) 42.6 (03/14/19) 45.4 (02/21/19) 31.4 (01/12/19) IPTH pg/mL 226 (03/14/19) 262 (12/06/18) 202 (11/03/18) Corrected Calcium is at goal. Phosphorous is at goal. Ca X P product is at goal. Intact PTH is at goal. Cardiovascular Assessment Blood pressures reviewed and are acceptable. Intradialytic weight gains are appropriate. Estimated dry weight is too high, will decrease. Will decrease wt to 98.5 kg. Transplant Status: Resuscitation Status Doing well on dialysis. Hgb is above goal, adjusting epo dose. B P in good shape, although he does come in high. Seeing cardiology re slow heart rate. Cardiology now feels he needs a pacer. They are going to call him to try to convince him. Pth is good phos ok Adequacy is at goal fistula developing using two needles.Line removed. Will reduce dry wt. Checo Sky MD [ Signed And locked electronically On 05/16/2019 at 04:20:38 PM ] Transcribed: Checo Sky ( 05/16/2019 ) documented in this encounter Plan of Treatment Not on filedocumented as of this encounter Visit Diagnoses Not on filedocumented in this encounter
--- OUTSIDE RECORDS SUMMARY | 2022-04-17 14:33 | XMS_ITS | Encounter Summary ---
:1940 Author Organization [facility] Address [address] [place] [address] Care Team Providers Name Role Phone Unavailable Primary Care Provider Unavailable Encounter Details Date Type Department Care Team Description 04/25/2019 Orders Only [facility] f Checo Jolly MD [address] [facility]3] ALAN S S [address] [place] [address] [place] [address] Social History Tobacco Use Types Packs/Day Years Used Date Smoking Tobacco: Never Assessed Sex Assigned at Date Recorded Not on file documented as of this encounter Plan of Treatment Not on filedocumented as of this encounter Procedures Procedure Name Priority Date/Time Associated Comments Diagnosis MONTHLY HD W/O CA/PH Routine 05/23/2019 11:45 AM Results for this (HC) WIRE THREADER procedure are i n the results section. IRON PANEL (FE, Routine 05/23/2019 11:45 AM Resul ts for this TIBC, TSAT) WIRE THREADER procedure are i n the results section. HEPATITIS B SURFACE Routine 05/23/2019 11:45 AM R esults for this ANTIGEN WIRE THREADER procedure are i n the results section. ALT Routine 05/23/2019 11:45 AM Results for this WIRE THREADER procedure are i n the results section. SODIUM Routine 05/23/2019 11:45 AM Results for this WIRE THREADER procedure are i n the results section. GLUCOSE, RANDOM Routine 05/23/2019 11:45 AM Resul ts for this WIRE THREADER procedure are i n the results section. FERRITIN Routine 05/23/2019 11:45 AM Results for this WIRE THREADER procedure are i n the results section. CREATININE, SERUM Routine 05/23/2019 11:45 AM Res ults for this WIRE THREADER procedure are i n the results section. HCT CALC HGBX3 (HC) Routine 05/16/2019 11:45 AM R esults for this WIRE THREADER procedure are i n the results section. HEMOGLOBIN Routine 05/16/2019 11:45 AM Results for this WIRE THREADER procedure are i n the results section. WOJCIECH/PHOS W/RATI (HC) Routine 05/09/2019 11:45 AM Results for this WIRE THREADER procedure are i n the results section. KT/V DAUGIRDAS (HC) Routine 05/09/2019 11:45 AM R esults for this WIRE THREADER procedure are i n the results section. HCT CALC HGBX3 (HC) Routine 05/09/2019 11:45 AM R esults for this WIRE THREADER procedure are i n the results section. HEMOGLOBIN Routine 05/09/2019 11:45 AM Results for this WIRE THREADER procedure are i n the results section. POTASSIUM Routine 05/09/2019 11:45 AM Results for this WIRE THREADER procedure are i n the results section. MONTHLY HD W/O CA/PH Routine 04/25/2019 11:45 AM Results for this (HC) WIRE THREADER procedure are i n the results section. IRON PANEL (FE, Routine 04/25/2019 11:45 AM Resul ts for this TIBC, TSAT) WIRE THREADER procedure are i n the results section. HEPATITIS B SURFACE Routine 04/25/2019 11:45 AM R esults for this ANTIGEN WIRE THREADER procedure are i n the results section. ALT Routine 04/25/2019 11:45 AM Results for this WIRE THREADER procedure are i n the results section. SODIUM Routine 04/25/2019 11:45 AM Results for this WIRE THREADER procedure are i n the results section. GLUCOSE, RANDOM Routine 04/25/2019 11:45 AM Resul ts for this WIRE THREADER procedure are i n the results section. FERRITIN Routine 04/25/2019 11:45 AM Results for this WIRE THREADER procedure are i n the results section. CREATININE, SERUM Routine 04/25/2019 11:45 AM Res ults for this WIRE THREADER procedure are i n the results section. documented in this encounter Results ALT (05/23/2019 11:45 AM WIRE THREADER) P athologist Signature ALT (SGPT) 16 10 - 49 U/L ADIN [place] Specimen Anatomical Collection Method Collection Time Receive d Time (Source) Location / / Volume Laterality 05/23/2019 11:45 05/24/2019 8:56 AM WIRE THREADER AM WIRE THREADER Checo Sky MD LAB BLOOD ORDERABLES Performing Organization Address City/State/ZIP Code Phon e Number ADIN [place] (ABNORMAL) Glucose, random (05/23/2019 11:45 AM WIRE THREADER) P athologist Signature Glucose 149 (H) 70 - 99 APS DAVITA mg/dL [facility] Specimen Anatomical Collection Method Collection Time Receive d Time (Source) Location / / Volume Laterality 05/23/2019 11:45 05/24/2019 8:56 AM WIRE THREADER AM WIRE THREADER Checo Sky MD LAB BLOOD ORDERABLES Performing Organization Address City/[facility]/ZIP Code Phon e Number APS DAV[facility] (ABNORMAL) Creatinine, serum (05/23/2019 11:45 AM WIRE THREADER) P athologist Signature Creatinine 10.05 (H) 0.70 - APS DAVITA 1.30 mg/dL [facility] Specimen Anatomical Collection Method Collection Time Receive d Time (Source) Location / / Volume Laterality 05/23/2019 11:45 05/24/2019 8:56 AM WIRE THREADER AM WIRE THREADER Checo Sky MD LAB BLOOD ORDERABLES Performing Organization Address City/[facility] Code Phon e Number APS DAVITA [facility] Sodium (05/23/2019 11:45 AM WIRE THREADER) P athologist Signature Sodium 141 132 - 146 APS DAVITA mEq/L [facility] Specimen Anatomical Collection Method Collection Time Receive d Time (Source) Location / / Volume Laterality 05/23/2019 11:45 05/24/2019 8:56 AM WIRE THREADER AM WIRE THREADER Checo Sky MD LAB BLOOD ORDERABLES Performing Organization Address [facility] Code Phon e Number APS DAVITA [facility] Hepatitis B Surface Antigen (05/23/2019 11:45 AM WIRE THREADER) P athologist Signature Hep B Surface NEG -NEG APS DAV[facility] Antigen [facility] Specimen Anatomical Collection Method Collection Time Receive d Time (Source) Location / / Volume Laterality 05/23/2019 11:45 05/24/2019 8:56 AM WIRE THREADER AM WIRE THREADER Checo Sky MD LAB BLOOD ORDERABLES Performing Organization Address City/State/ZIP Code Phon e Number APS [place] [facility] (ABNORMAL) Ferritin (05/23/2019 11:45 AM WIRE THREADER) P athologist Signature Ferritin 460 (H) 22 - 322 APS DAVITA ng/mL [facility] Specimen Anatomical Collection Method Collection Time Receive d Time (Source) Location / / Volume Laterality 05/23/2019 11:45 05/24/2019 8:56 AM WIRE THREADER AM WIRE THREADER Checo Sky MD LAB BLOOD ORDERABLES Performing Organization Address City/State/ZIP Code Phon e Number APS [facility] (ABNORMAL) Iron Panel (Fe, TIBC, TSAT) (05/23/2019 11:45 AM WIRE THREADER) P athologist Signature Iron 65 65 - 175 APS DAVITA ug/dL [facility] TIBC 234 (L) 250 - 425 APS DAVITA ug/dL [facility] UIBC 169 75 - 360 APS DAVITA ug/dL [facility] Iron Saturation 28 21 - 49 % APS DAVITA (TSat) [facility] Specimen Anatomical Collection Method Collection Time Receive d Time (Source) Location / / Volume Laterality 05/23/2019 11:45 05/24/2019 8:56 AM WIRE THREADER AM WIRE THREADER Checo Sky MD LAB BLOOD ORDERABLES Performing Organization Address City/State/ZIP Code Phon e Number APS DAV[facility] (ABNORMAL) MONTHLY HD W/O CA/PH (05/23/2019 11:45 AM WIRE THREADER) Patholo gist Method Time Signature Potassium 4.0 3.5 - 5.5 APS DAV[facility] mEq/L [facility] Chloride 105 99 - 109 APS [facility] mEq/L [facility] Bicarbonate 23 20 - 31 APS DAVITA (CO2) mEq/L [facility] Protein, Total 6.6 5.7 - 8.2 APS DAVITA g/dL [facility] Albumin 3.8 3.2 - 4.8 APS DAVITA g/dL [facility] AST (SGOT) 18 0 - 34 U/L APS DAVITA [facility] LDH 141 120 - 246 APS DAVITA U/L [facility] Alkaline 68 46 - 116 APS [place] Phosphatase U/L [facility] WBC 7.6 4.5 - 11.0 APS [place] x 10'3 [facility] cells/uL RBC 3.20 (L) 4.60 - APS DAVITA 6.20 x [facility] 10'6 cells/uL Hgb 10.4 (L) 14.0 - APS DAVITA 18.0 g/dL [facility] Hematocrit 31.8 (L) 42.0 - APS DAVITA 52.0 % [facility] MCV 99.2 80.0 - APS DAVITA 100.0 fL [facility] MCH 32.4 (H) 27.0 - APS DAVITA 31.0 pg [facility] MCHC 32.7 32.0 - APS DAVITA 36.0 g/dL [facility] RDW 14.0 11.0 - APS DAVITA 15.0 % [facility] Platelets 139 (L) 150 - 400 APS DAVITA x 10'3 [facility] cells/uL Neutrophils % 72.0 % APS DAVITA Auto [facility] Lymphocytes 15.8 % APS DAV[facility] Manual [facility] Monocytes Manual 7.1 % APS DAVITA [facility] Eosinophil % 4.3 % APS DAVITA [facility] Basophils 0.8 % APS DAV[facility] Relative [facility] Neutrophils 5,508.00 2,000 - APS DAVITA Absolute 8,800 [facility] Cell/uL Lymphocytes 1,208.70 1,100 - APS DAVITA Absolute 4,800 [facility] Cell/uL Monocytes 543.15 0 - 1,100 APS DAV[place] Absolute Cell/uL [facility] Eosinophils 328.95 0 - 700 APS DAVITA Absolute Cell/uL [facility] Basophils 61.20 0 - 400 APS DAV[facility] Absolute Cell/uL [...] 5 g/dL APS DAVITA [facility] A/G Ratio 1.4 1 - 2.5 Calc APS DAVITA [facility] Hemoglobin x 3 31.2 (L) 42.0 - 52.0 % APS DAV[facility] Specimen Anatomical Collection Method Collection Time Receive d Time (Source) Location / / Volume Laterality 05/23/2019 11:45 05/24/2019 8:56 AM WIRE THREADER AM WIRE THREADER Checo Sky MD LAB [id number] NSOLICITED RESULTS Performing Organization Address City/State/ZIP Code Phon e Number APS [facility] (ABNORMAL) HCT CALC HGBX3 (05/16/2019 11:45 AM WIRE THREADER) Analysis Performed At Patho logist Time Signature Hemoglobin x 3 31.2 (L) 42.0 - APS DAVITA 52.0 % [facility] Specimen Anatomical Collection Method Collection Time Receive d Time (Source) Location / / Volume Laterality 05/16/2019 11:45 05/17/2019 8:06 AM WIRE THREADER AM WIRE THREADER Checo Sky MD LAB [id number] NSOLICITED RESULTS Performing Organization Address City/State/ZIP Code Phon e Number APS DAV[facility] (ABNORMAL) Hemoglobin (05/16/2019 11:45 AM WIRE THREADER) P athologist Signature Hgb 10.4 (L) 14.0 - 18.0 APS DAVITA g/dL [facility] Specimen Anatomical Collection Method Collection Time Receive d Time (Source) Location / / Volume Laterality 05/16/2019 11:45 05/17/2019 8:06 AM WIRE THREADER AM WIRE THREADER Checo Sky MD LAB BLOOD ORDERABLES Performing Organization Address City/[facility] Code Phon e Number APS DAVITA [facility] (ABNORMAL) Hemoglobin (05/09/2019 11:45 AM WIRE THREADER) P athologist Signature Hgb 11.8 (L) 14.0 - 18.0 APS DAVITA g/dL [facility] Specimen Anatomical Collection Method Collection Time Receive d Time (Source) Location / / Volume Laterality 05/09/2019 11:45 05/12/2019 2:02 AM WIRE THREADER PM WIRE THREADER Checo Sky MD LAB BLOOD ORDERABLES Performing Organization Address City/[facility]/ZIP Code Phon e Number APS DAVITA [facility] (ABNORMAL) HCT CALC HGBX3 (05/09/2019 11:45 AM WIRE THREADER) Analysis Performed At Patho logist Time Signature Hemoglobin x 3 35.4 (L) 42.0 - APS DAVITA 52.0 % [facility] Specimen Anatomical Collection Method Collection Time Receive d Time (Source) Location / / Volume Laterality 05/09/2019 11:45 05/12/2019 2:02 AM WIRE THREADER PM WIRE THREADER Checo Sky MD LAB [id number] NSOLICITED RESULTS Performing Organization Address City/[facility]/ZIP Code Phon e Number APS DAVITA [facility] Potassium (05/09/2019 11:45 AM WIRE THREADER) P athologist Signature Potassium 4.6 3.5 - 5.5 APS DAVITA mEq/L [facility] Specimen Anatomical Collection Method Collection Time Receive d Time (Source) Location / / Volume Laterality 05/09/2019 11:45 05/12/2019 2:02 AM WIRE THREADER PM WIRE THREADER Checo Sky MD LAB BLOOD ORDERABLES Performing Organization Address City/[facility]/ZIP Code Phon e Number APS DAVITA [facility] (ABNORMAL) KT/V DAUGIRDAS (05/09/2019 11:45 AM WIRE THREADER) athologist Signature BUN 74 (H) 9 - 23 APS DAVITA mg/dL [facility] BUN Post 24 (H) 9 - 23 APS DAVITA Dialysis mg/dL [facility] URR% 68 65 - 100 % APS DAVITA [facility] Specimen Anatomical Collection Method Collection Time Receive d Time (Source) Location / / Volume Laterality 05/09/2019 11:45 05/12/2019 2:02 AM WIRE THREADER PM WIRE THREADER Checo Sky MD LAB [id number] NSOLICITED RESULTS Performing Organization Address City/[facility]/ZIP Code Phon e Number APS DAVITA [facility] WOJCIECH/PHOS W/RATI (05/09/2019 11:45 AM WIRE THREADER) athologist Signature Calcium 9.0 8.7 - 10.4 APS DAVITA mg/dL [facility] Phosphorus, 5.1 2.4 - 5.1 APS DAVITA Serum mg/dL [facility] CA/PHOS PRODUCT 45.9 21 - 53 APS DAVITA Calc [facility] Corrected 9.0 8.7 - 10.4 APS [place] Calcium mg/dL [facility] CA*PO4 CORRCTD 45.9 21 - 53 APS DAVITA Calc [facility] Specimen Anatomical Collection Method Collection Time Receive d Time (Source) Location / / Volume Laterality 05/09/2019 11:45 05/12/2019 2:02 AM WIRE THREADER PM WIRE THREADER Checo Sky MD LAB [id number] NSOLICITED RESULTS Performing Organization Address City/State/ZIP Code Phon e Number APS DAV[facility] Hepatitis B Surface Antigen (04/25/2019 11:45 AM WIRE THREADER) athologist Signature Hep B Surface NEG -NEG APS DAV[facility] Antigen [facility] Specimen Anatomical Collection Method Collection Time Receive d Time (Source) Location / / Volume Laterality 04/25/2019 11:45 04/26/2019 8:49 AM WIRE THREADER AM WIRE THREADER Checo Sky MD LAB BLOOD ORDERABLES Performing Organization Address [facility] Phon e Number APS DAVITA [facility] (ABNORMAL) Ferritin (04/25/2019 11:45 AM WIRE THREADER) P athologist Signature Ferritin 488 (H) 22 - 322 APS DAVITA ng/mL [facility] Specimen Anatomical Collection Method Collection Time Receive d Time (Source) Location / / Volume Laterality 04/25/2019 11:45 04/26/2019 8:49 AM WIRE THREADER AM WIRE THREADER Checo Sky MD LAB BLOOD ORDERABLES Performing Organization Address [facility] Code Phon e Number APS DAVITA [facility] ALT (04/25/2019 11:45 AM WIRE THREADER) P athologist Signature ALT (SGPT) 15 10 - 49 U/L APS DAVITA [facility] Specimen Anatomical Collection Method Collection Time Receive d Time (Source) Location / / Volume Laterality 04/25/2019 11:45 04/26/2019 8:49 AM WIRE THREADER AM WIRE THREADER Checo Sky MD LAB BLOOD ORDERABLES Performing Organization Address [facility] Code Phon e Number APS DAVITA [facility] (ABNORMAL) Glucose, random (04/25/2019 11:45 AM WIRE THREADER) P athologist Signature Glucose 160 (H) 70 - 99 APS DAVITA mg/dL [facility] Specimen Anatomical Collection Method Collection Time Receive d Time (Source) Location / / Volume Laterality 04/25/2019 11:45 04/26/2019 8:49 AM WIRE THREADER AM WIRE THREADER Checo Sky MD LAB BLOOD ORDERABLES Performing Organization Address [facility]/ZIP [facility] Phon e Number APS DAVITA [facility] (ABNORMAL) Creatinine, serum (04/25/2019 11:45 AM WIRE THREADER) P athologist Signature Creatinine 10.60 (H) 0.70 - APS DAVITA 1.30 mg/dL [facility] Specimen Anatomical Collection Method Collection Time Receive d Time (Source) Location / / Volume Laterality 04/25/2019 11:45 04/26/2019 8:49 AM WIRE THREADER AM WIRE THREADER Checo Sky MD LAB BLOOD ORDERABLES Performing Organization Address City/State/ZIP Code Phon e Number APS DAVITA [facility] Sodium (04/25/2019 11:45 AM WIRE THREADER) athologist Signature Sodium 137 132 - 146 APS DAVITA mEq/L [facility] Specimen Anatomical Collection Method Collection Time Receive d Time (Source) Location / / Volume Laterality 04/25/2019 11:45 04/26/2019 8:49 AM WIRE THREADER AM WIRE THREADER Checo Sky MD LAB BLOOD ORDERABLES Performing Organization Address City/State/ZIP Code Phon e Number APS DAVITA [facility] (ABNORMAL) Iron Panel (Fe, TIBC, TSAT) (04/25/2019 11:45 AM WIRE THREADER) athologist Signature Iron 55 (L) 65 - 175 APS DAVITA ug/dL [facility] TIBC 228 (L) 250 - 425 APS DAVITA ug/dL [facility] UIBC 173 75 - 360 APS DAVITA ug/dL [facility] Iron Saturation 24 21 - 49 % APS DAVITA (TSat) [facility] Specimen Anatomical Collection Method Collection Time Receive d Time (Source) Location / / Volume Laterality 04/25/2019 11:45 04/26/2019 8:49 AM WIRE THREADER AM WIRE THREADER Checo Sky MD LAB BLOOD ORDERABLES Performing Organization Address City/State/ZIP Code Phon e Number APS DAVITA [facility] (ABNORMAL) MONTHLY HD W/O CA/PH (04/25/2019 11:45 AM WIRE THREADER) [facility] gist Method Time Signature Potassium 4.4 3.5 [...] - 246 APS DAVITA U/L [facility] Alkaline 72 46 - 116 APS DAVITA Phosphatase U/L [facility] WBC 7.9 4.5 - APS DAVITA 11.0 x [facility] 10'3 cells/uL RBC 3.40 (L) 4.60 - APS DAVITA 6.20 x [facility] 10'6 cells/uL Hgb 10.6 (L) 14.0 - APS DAVITA 18.0 g/dL [facility] Hematocrit 32.8 (L) 42.0 - APS DAVITA 52.0 % [facility] MCV 96.6 80.0 - APS DAVITA 100.0 fL [facility] MCH 31.1 (H) 27.0 - APS DAVITA 31.0 pg [facility] MCHC 32.2 32.0 - APS DAVITA 36.0 g/dL [facility] RDW 14.3 11.0 - APS DAVITA 15.0 % [facility] Platelets 164 150 - 400 APS DAVITA x 10'3 [facility] cells/uL Neutrophils % 74.5 % APS DAVITA Auto [facility] Lymphocytes 13.2 % APS DAVITA Manual [facility] Monocytes Manual 6.8 % APS DAVITA [facility] Eosinophil % 4.8 % APS DAVITA [facility] Basophils 0.7 % APS DAVITA Relative [facility] Neutrophils 5,870.60 2,000 - APS DAVITA Absolute 8,800 [facility] Cell/uL Lymphocytes 1,040.16 1,100 - APS DAVITA Absolute (L) 4,800 [facility] Cell/uL Monocytes 535.84 0 - 1,100 APS DAVITA Absolute Cell/uL [facility] Eosinophils 378.24 0 - 700 APS DAVITA Absolute Cell/uL [facility] Basophils 55.16 0 - 400 APS DAVITA Absolute Cell/uL [...] Calc APS DAVITA [facility] Hemoglobin x 3 31.8 (L) 42.0 - 52.0 % APS DAVITA [facility] Specimen Anatomical Collection Method Collection Time Receive d Time (Source) Location / / Volume Laterality 04/25/2019 11:45 04/26/2019 8:49 AM WIRE THREADER AM WIRE THREADER Checo Sky MD LAB [id number] NSOLICITED RESULTS Performing Organization Address City/State/ZIP Code Phon e Number APS DAVITA [facility] documented in this encounter Visit Diagnoses Not on filedocumented in this encounter
--- OUTSIDE RECORDS SUMMARY | 2022-04-17 14:33 | XMS_ITS | Continuity of Care Document ---
:1940 Author Organization [facility] Address [address] [address] [place] [address] Phone Care Team Providers Name Role Phone Unavailable Unavailable Unavailable Advance Directives Directive Yes / No Effective Date File Name No Information Encounters Encounter Practice Location Reason(s) Diagnoses Date Provider Provide rs Description For Visit Copied on Encounter [facility] No Mar-2 No Digestive Endoscopy Information 7 [facility] [address] [address], [place], [place], [id number], [place] tel:[phone] Family History Family Member Type Diagnosis Age At Onset No Information Payers Payer name Insurance type Covered democrat ID Authorization(s ) No Information Social History Type Description Quantity Date Captured Comments Sex Male Smoking Status No Information Chief Complaint And Reason For Visit No Information Reason For Referral Reason For Referral No Information Plan Of Treatment Date Type Action Status No Information History Of Present Illness Encounter Date Complaint History Of Present I llness No Information Functional Status Date Functional Assessment No Information Instructions Date Instruction Additional Informati on No Information Assessments Type Assessment Date No Information Patient Care Teams Name Effective Dates (start - stop) Status M embers No Information
--- OUTSIDE RECORDS SUMMARY | 2022-04-17 14:33 | XMS_ITS | Encounter Summary ---
:1940 Author Organization [facility] Address [address] [place] [address] Care Team Providers Name Role Phone Unavailable Primary Care Provider Unavailable Encounter Details Date Type Department Care Team Description 10/10/2019 Treatment [facility] f Checo Jolly MD [address] [place] [address] [place] [address] [place], [place] [phone] Social History Tobacco Use Types Packs/Day Years Used Date Smoking Tobacco: Never Assessed Sex Assigned at Date Recorded Not on file documented as of this encounter Miscellaneous Notes Dialysis Note - Checo Sky MD - 10/10/2019 10:04 AM CDT Date: October 10, 2019 Patient Name: Korey Mackay : 1940 Chart #: [id number] Sex: M Due to the coronavirus national emergency this visit was conducted using video technology to complete the visit. Patient consent was obtained. Pt location is indicated below. I participated in telehealth svcs from a remote location in our service area. This patient was personally seen for a complete visit as part of routine monthly dialysis care. A review of the dialysis treatment, blood pressure, estimated dry weight and recent lab values was made. These were discussed with the patient and staff as necessary. SERVER SECURITY ADMINISTRATOR: Checo Sky MD LOCATION: [facility] [phone] SCHEDULE: M-W- 3rd Shift EDW: kg. DIALYZER: HD DURATION: NEEDLE SIZE: ANTICOAG: BATH: QB: ml/min QD: ml/min Subjective (Because of Covid 19 pandemic we are doing the visit by Telehealth) He is recently back from [place] where he spent the winter. he did [...] syncopal episodes. He has seen cardiology at [facility] . He did have a syncopal episode [...] Edema - No leg edema. Access - 5/3: appears comfortable at the time of this visit. Not sob. Color is good. No significant edema Medication List No medication list is available. Allergy List No allergy list is available. Medications reviewed and no changes were made. Treatment and Adequacy Assessment BUN mg/dL 63 (10/03/19) 88 (09/26/19) 84 (09/12/19) 74 (05/09/19) 87 (04/11/19) CREATININE (MG/DL) IN SER/PLAS mg/dL 11.34 (09/26/19) 10.94 (09/12/19) 10.05 (05/23/19) 10.60 (04/25/19) 10.94 (03/28/19) URR% % 67 (10/03/19) 66 (09/26/19) 67 (09/12/19) 68 (05/09/19) 71 (04/11/19) KT/V, DAUGIRDAS II (CALC) TNP (02/21/19) Dialysis is adequate. Achieves prescribed time - Yes Achieves prescribed frequency - Yes Vascular Access Assessment Type of access: Catheter Surgeon - blunt radiology, Access center in [place]. Staff and patient report access is working well. Anemia Assessment WBC (BLOOD) x 103 cells/uL 6.4 (09/26/19) 9.4 (09/12/19) 7.6 (05/23/19) 7.9 (04/25/19) 7.4 (03/28/19) HGB g/dL 10.9 (09/26/19) 11.2 (09/12/19) 10.4 (05/23/19) 10.4 (05/16/19) 11.8 (05/09/19) PLATELETS x 103 cells/uL 151 (09/26/19) 134 (09/12/19) 139 (05/23/19) 164 (04/25/19) 157 (03/28/19) IRON SATURATION % 21 (09/26/19) 23 (09/12/19) 28 (05/23/19) 24 (04/25/19) 28 (03/28/19) FERRITIN ng/mL 364 (09/26/19) 543 (09/12/19) 460 (05/23/19) 488 (04/25/19) 395 (03/28/19) Hemoglobin is at goal. Iron Saturation is at goal. Ferritin is at goal. Will adjust MISTY and intravenous iron per protocol. Nutritional and Metabolic Assessment ALBUMIN (G/DL) g/dL 3.7 (09/26/19) 3.9 (09/12/19) 3.8 (05/23/19) 4.0 (04/25/19) 3.7 (03/28/19) SODIUM mEq/L 142 (09/26/19) 140 (09/12/19) 141 (05/23/19) 137 (04/25/19) 141 (03/28/19) POTASSIUM (MMOL/L) IN SER/PLAS mEq/L 4.4 (09/26/19) 3.7 (09/12/19) 4.0 (05/23/19) 4.6 (05/09/19) 4.4 (04/25/19) BICARBONATE (CO2) mEq/L 25 (09/26/19) 19 (09/12/19) 23 (05/23/19) 22 (04/25/19) 21 (03/28/19) Albumin is below goal. Encourage high-biological value protein intake. Oral Nutritional Supplement program. Potassium is at goal. Bicarbonate is below goal. Bone and Mineral Metabolism Assessment CALCIUM mg/dL 9.0 (09/12/19) 9.0 (05/09/19) 8.5 (04/11/19) 8.5 (03/14/19) 8.7 (02/21/19) CORRECTED CALCIUM mg/dL 9.1 (09/12/19) 9.0 (05/09/19) 8.7 (04/11/19) 8.7 (03/14/19) 8.9 (02/21/19) PHOSPHORUS mg/dL 2.6 (09/12/19) 5.1 (05/09/19) 4.9 (04/11/19) 4.9 (03/14/19) 5.1 (02/21/19) CA*PO4 CORRCTD Calc 23.7 (09/12/19) 45.9 (05/09/19) 42.6 (04/11/19) 42.6 (03/14/19) 45.4 (02/21/19) IPTH pg/mL 121 (09/12/19) 226 (03/14/19) 262 (12/06/18) 202 (11/03/18) Corrected Calcium is at goal. Phosphorous is below goal. Ca X P product is at goal. Intact PTH is below goal. Chief Optometry Service will adjust binders and vitamin D per [...] MD [ Signed And locked electronically On 10/12/2019 at 10:10:15 AM ] Transcribed: Checo Sky ( 10/12/2019 ) documented in this encounter Plan of Treatment Not on filedocumented as of this encounter Visit Diagnoses Not on filedocumented in this encounter
--- OUTSIDE RECORDS SUMMARY | 2022-04-17 14:33 | XMS_ITS | Encounter Summary ---
:1940 Author Organization [facility] Address [address] [place] [address] Care Team Providers Name Role Phone Unavailable Primary Care Provider Unavailable Encounter Details Date Type Department Care Team Description 09/12/2019 Treatment [facility] Checo Jolly MD [address] [place] [address] [place] [address] [place], [place] [phone] Social History Tobacco Use Types Packs/Day Years Used Date Smoking Tobacco: Never Assessed Sex Assigned at Date Recorded Not on file documented as of this encounter Miscellaneous Notes Dialysis Note - Checo Sky MD - 09/12/2019 6:18 PM CDT Date: Sep 12, 2019 Patient Name: Korey Mackay : 1940 Chart #: [id number] Sex: M This patient was personally seen for a complete visit as part of routine monthly dialysis care. A review of the dialysis treatment, blood pressure, estimated dry weight and recent lab values was made. These were discussed with the patient and staff as necessary. [employer] THRESHING: Checo Sky MD LOCATION: [place] [phone] SCHEDULE: -W- 3rd Shift EDW: kg. DIALYZER: HD DURATION: NEEDLE SIZE: ANTICOAG: BATH: QB: ml/min QD: ml/min Subjective (Because of Covid 19 pandemic we are doing the visit by Telehealth)This is a late entry. He is just back from [place] where he spent the winter. he did not like his experience there in the unit. He says he has been very tired at the end of his treatments . We are going to pull somewhat less weight on the run to see if this helps. His planned pacer placement has been postponed because of Covid 19. He says heart rate in [place] was not a problem. He has seen cardiology at [facility] . He did have a syncopal episode [...] get checked but he did not. He has had a uri recently and has been treated with antibiotics. He has also had loose stools recently watery only one per day a little lower abd discomfort. He denies chest pain or sob. No further syncopal episodes. He is going to discuss home therapies with home dialysis nurse. We did discuss transplant . I explained that the waiting time is about 5 y ears and that there are increased risks for someone his age. Advanced Practitioner Subjective Review of Systems Fatigue. 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 Cardiovascular - Regular rate. Regular rhythm. No murmur heard. Edema - No leg edema. Access - The above exam is from a previous visit. He appeared comfortable on video. He is alert and oriented times 3. He has no myoclonus, no sob, no edema and no rash. Medication List No medication list is available. Allergy List No allergy list is available. Medications reviewed and no changes were made. Treatment and Adequacy Assessment BUN mg/dL 84 (09/12/19) 74 (05/09/19) 87 (04/11/19) 76 (03/14/19) 73 (02/16/19) CREATININE (MG/DL) IN SER/PLAS mg/dL 10.94 (09/12/19) 10.05 (05/23/19) 10.60 (04/25/19) 10.94 (03/28/19) 10.40 (02/21/19) URR% % 67 (09/12/19) 68 (05/09/19) 71 (04/11/19) 71 (03/14/19) 74 (02/16/19) KT/V, DAUGIRDAS II (CALC) TNP (02/21/19) Dialysis is adequate. Achieves prescribed time - Yes Achieves prescribed frequency - Yes Vascular Access Assessment Type of access: Catheter Surgeon - [facility], Access center in [place]. Staff and patient report access is working well. Anemia Assessment WBC (BLOOD) x 103 cells/uL 9.4 (09/12/19) 7.6 (05/23/19) 7.9 (04/25/19) 7.4 (03/28/19) 6.6 (02/21/19) HGB g/dL 11.2 (09/12/19) 10.4 (05/23/19) 10.4 (05/16/19) 11.8 (05/09/19) 10.6 (04/25/19) PLATELETS x 103 cells/uL 134 (09/12/19) 139 (05/23/19) 164 (04/25/19) 157 (03/28/19) 187 (02/21/19) IRON SATURATION % 23 (09/12/19) 28 (05/23/19) 24 (04/25/19) 28 (03/28/19) 28 (02/25/19) FERRITIN ng/mL 543 (09/12/19) 460 (05/23/19) 488 (04/25/19) 395 (03/28/19) 688 (02/21/19) Hemoglobin is above goal. Iron Saturation is at goal. Ferritin is at goal. Will adjust MISTY and intravenous iron per protocol. Nutritional and Metabolic Assessment ALBUMIN (G/DL) g/dL 3.9 (09/12/19) 3.8 (05/23/19) 4.0 (04/25/19) 3.7 (03/28/19) 3.8 (02/21/19) SODIUM mEq/L 140 (09/12/19) 141 (05/23/19) 137 (04/25/19) 141 (03/28/19) 136 (02/21/19) POTASSIUM (MMOL/L) IN SER/PLAS mEq/L 3.7 (09/12/19) 4.0 (05/23/19) 4.6 (05/09/19) 4.4 (04/25/19) 3.7 (03/28/19) BICARBONATE mEq/L 19 (09/12/19) 23 (05/23/19) 22 (04/25/19) 21 (03/28/19) 20 (02/21/19) Albumin is below goal. Encourage high-biological value [...] at goal. Intact PTH is below goal. City Clerk will adjust binders and vitamin D per protocol and continue to provide dietary education. Cardiovascular Assessment Blood pressures reviewed and are acceptable. Intradialytic weight gains are appropriate. Estimated dry weight is too low, will increase. Dry wt may be too low will cautiously adjust. Transplant Status: Resuscitation Status Doing well on dialysis. Hgb is above goal, adjusting epo dose. Seeing cardiology re slow heart rate. Cardiology now feels he needs a pacer but on hold now in view of Covid 19. Pth is low and phos also low. Adequacy is at goal fistula developing using two needles.Line removed. Checo Sky MD [ Signed And locked electronically On 09/18/2019 at 06:29:33 PM ] Transcribed: Checo Sky ( 09/18/2019 ) documented in this encounter Plan of Treatment Not on filedocumented as of this encounter Visit Diagnoses Not on filedocumented in this encounter
--- OUTSIDE RECORDS SUMMARY | 2022-04-17 14:33 | XMS_ITS | Encounter Summary ---
:1940 Author Organization [facility] Address [address] [place] [address] Care Team Providers Name Role Phone Unavailable Primary Care Provider Unavailable Encounter Details Date Type Department Care Team Description 09/12/2019 Orders Only [facility] Checo Jolly MD [address] [facility] [address] [place] [address] [place] [address] Social History Tobacco Use Types Packs/Day Years Used Date Smoking Tobacco: Never Assessed Sex Assigned at Date Recorded Not on file documented as of this encounter Plan of Treatment Not on filedocumented as of this encounter Procedures Procedure Name Priority Date/Time Associated Comments Diagnosis WOJCIECH/PHOS W/RATI (HC) Routine 10/12/2019 12:30 PM Results for this CDT procedure are i n the results section. KT/V DAUGIRDAS (HC) Routine 10/12/2019 12:30 PM R esults for this CDT procedure are i n the results section. HCT CALC HGBX3 (HC) Routine 10/12/2019 12:30 PM R esults for this CDT procedure are i n the results section. HEMOGLOBIN Routine 10/12/2019 12:30 PM Results for this CDT procedure are i n the results section. POTASSIUM Routine 10/12/2019 12:30 PM Results for this CDT procedure are i n the results section. KT/V DAUGIRDAS (HC) Routine 10/03/2019 12:30 PM R esults for this CDT procedure are i n the results section. HCV PANEL NONPROTOCL Routine 09/26/2019 12:30 PM Results for this (HC) CDT procedure are i n the results section. KT/V DAUGIRDAS (HC) Routine 09/26/2019 12:30 PM R esults for this CDT procedure are i n the results section. MONTHLY HD W/O CA/PH Routine 09/26/2019 12:30 PM Results for this (HC) CDT procedure are i n the results section. IRON PANEL (FE, Routine 09/26/2019 12:30 PM Resul ts for this TIBC, TSAT) CDT procedure are i n the results section. HEPATITIS B SURFACE Routine 09/26/2019 12:30 PM R esults for this ANTIGEN CDT procedure are i n the results section. ALT Routine 09/26/2019 12:30 PM Results for this CDT procedure are i n the results section. SODIUM Routine 09/26/2019 12:30 PM Results for this CDT procedure are i n the results section. HEMOGLOBIN A1C Routine 09/26/2019 12:30 PM Result s for this CDT procedure are i n the results section. GLUCOSE, RANDOM Routine 09/26/2019 12:30 PM Resul ts for this CDT procedure are i n the results section. FERRITIN Routine 09/26/2019 12:30 PM Results for this CDT procedure are i n the results section. CREATININE, SERUM Routine 09/26/2019 12:30 PM Res ults for this CDT procedure are i n the results section. HCV PANEL NONPROTOCL Routine 09/12/2019 12:30 PM Results for this (HC) CDT procedure are i n the results section. WOJCIECH/PHOS W/RATI (HC) Routine 09/12/2019 12:30 PM Results for this CDT procedure are i n the results section. KT/V DAUGIRDAS (HC) Routine 09/12/2019 12:30 PM R esults for this CDT procedure are i n the results section. MONTHLY HD W/O CA/PH Routine 09/12/2019 12:30 PM Results for this (HC) CDT procedure are i n the results section. IRON PANEL (FE, Routine 09/12/2019 12:30 PM Resul ts for this TIBC, TSAT) CDT procedure are i n the results section. HEPATITIS B CORE AB Routine 09/12/2019 12:30 PM R esults for this TOTAL CDT procedure are i n the results section. HEPATITIS B SURFACE Routine 09/12/2019 12:30 PM R esults for this ANTIBODY QUANT CDT procedure are in the results section. HEPATITIS B SURFACE Routine 09/12/2019 12:30 PM R esults for this ANTIGEN CDT procedure are i n the results section. ALT Routine 09/12/2019 12:30 PM Results for this CDT procedure are i n the results section. SODIUM Routine 09/12/2019 12:30 PM Results for this CDT procedure are i n the results section. PTH, INTACT Routine 09/12/2019 12:30 PM Results for this CDT procedure are i n the results section. HEMOGLOBIN A1C Routine 09/12/2019 12:30 PM Result s for this CDT procedure are i n the results section. GLUCOSE, RANDOM Routine 09/12/2019 12:30 PM Resul ts for this CDT procedure are i n the results section. FERRITIN Routine 09/12/2019 12:30 PM Results for this CDT procedure are i n the results section. CREATININE, SERUM Routine 09/12/2019 12:30 PM Res ults for this CDT procedure are i n the results section. documented in this encounter Results Potassium (10/12/2019 12:30 PM CDT) athologist Signature Potassium 4.2 3.5 - 5.5 [facility] mEq/L [facility] Specimen Anatomical Collection Method Collection Time Receive d Time (Source) Location / / Volume Laterality 10/12/2019 12:30 10/15/2019 PM CDT 1:35 PM CDT Checo Sky MD LAB BLOOD ORDERABLES Performing Organization Address City/State/ZIP Code Phon e Number APS DAV[facility] (ABNORMAL) Hemoglobin (10/12/2019 12:30 PM CDT) athologist Signature Hgb 11.2 (L) 14.0 - 18.0 [facility] g/dL [facility] Specimen Anatomical Collection Method Collection Time Receive d Time (Source) Location / / Volume Laterality 10/12/2019 12:30 10/15/2019 1:35 PM CDT PM CDT Checo Sky MD LAB BLOOD ORDERABLES Performing Organization Address City/State/ZIP Code Phon e Number APS [facility] (ABNORMAL) HCT CALC HGBX3 (10/12/2019 12:30 PM CDT) Analysis Performed At Patho logist Time Signature Hemoglobin x 3 33.6 (L) 42.0 - [facility]PS [facility] 52.0 % [facility] Specimen Anatomical Collection Method Collection Time Receive d Time (Source) Location / / Volume Laterality 10/12/2019 12:30 10/15/2019 1:35 PM CDT PM CDT Checo Sky MD LAB [id number] NSOLICITED RESULTS Performing Organization Address City/State/ZIP Code Phon e Number APS [facility] (ABNORMAL) KT/V DAUGIRDAS (10/12/2019 12:30 PM CDT) P athologist Signature BUN 61 (H) 9 - 23 [facility] mg/dL [facility] BUN Post 20 9 - 23 [facility] Dialysis mg/dL [facility] URR% 67 65 - 100 % APS [facility] Specimen Anatomical Collection Method Collection Time Receive d Time (Source) Location / / Volume Laterality 10/12/2019 12:30 10/15/2019 1:35 PM CDT PM CDT Checo Sky MD LAB [id number] NSOLICITED RESULTS Performing Organization Address City/State/ZIP Code Phon e Number APS [facility] (ABNORMAL) WOJCIECH/PHOS W/RATI (10/12/2019 12:30 PM CDT) P athologist Signature Calcium 8.6 (L) 8.7 - 10.4 [facility] mg/dL [facility] Phosphorus, 5.1 2.4 - 5.1 [facility] Serum mg/dL [facility] CA/PHOS 43.9 21 - 53 [facility] PRODUCT Calc [facility] Corrected 8.8 8.7 - 10.4 [facility] Calcium mg/dL [facility] CA*PO4 CORRCTD 44.9 21 - 53 [facility] Calc [facility] Specimen Anatomical Collection Method Collection Time Receive d Time (Source) Location / / Volume Laterality 10/12/2019 12:30 10/15/2019 1:35 PM CDT PM CDT Checo Sky MD LAB [id number] NSOLICITED RESULTS Performing Organization Address City/State/ZIP Code Phon e Number APS [facility] (ABNORMAL) KT/V DAUGIRDAS (10/03/2019 12:30 PM CDT) P athologist Signature BUN 63 (H) 9 - 23 [facility] mg/dL [facility] BUN Post 21 9 - 23 [facility] Dialysis mg/dL [facility] URR% 67 65 - 100 % APS [facility] Specimen Anatomical Collection Method Collection Time Receive d Time (Source) Location / / Volume Laterality 10/03/2019 12:30 10/06/2019 8:51 PM CDT AM CDT Checo Sky MD LAB [id number] NSOLICITED RESULTS Performing Organization Address City/[facility]/ZIP Code Phon e Number APS DAV[facility] Hemoglobin A1c (09/26/2019 12:30 PM CDT) P athologist Signature Hemoglobin A1C 5.6 0.0 - 5.6 APS [facility] %A1c [facility] Specimen Anatomical Collection Method Collection Time Receive d Time (Source) Location / / Volume Laterality 09/26/2019 12:30 10/01/2019 1:53 PM CDT PM CDT Checo Sky MD LAB BLOOD ORDERABLES Performing Organization Address [facility] Code Phon e Number APS DAVITA [facility] ALT (09/26/2019 12:30 PM CDT) P athologist Signature ALT (SGPT) 13 10 - 49 U/L APS [facility] Specimen Anatomical Collection Method Collection Time Receive d Time (Source) Location / / Volume Laterality 09/26/2019 12:30 10/01/2019 1:53 PM CDT PM CDT Checo Sky MD LAB BLOOD ORDERABLES Performing Organization Address [facility] Code Phon e Number APS DAVITA [facility] (ABNORMAL) Glucose, random (09/26/2019 12:30 PM CDT) P athologist Signature Glucose 121 (H) 70 - 99 APS [facility] mg/dL [facility] Specimen Anatomical Collection Method Collection Time Receive d Time (Source) Location / / Volume Laterality 09/26/2019 12:30 10/01/2019 1:53 PM CDT PM CDT Checo Sky MD LAB BLOOD ORDERABLES Performing Organization Address [facility]/ZIP Code Phon e Number APS DAV[facility] (ABNORMAL) Creatinine, serum (09/26/2019 12:30 PM CDT) P athologist Signature Creatinine 11.34 (H) 0.70 - APS DAVITA 1.30 mg/dL [facility] Specimen Anatomical Collection Method Collection Time Receive d Time (Source) Location / / Volume Laterality 09/26/2019 12:30 10/01/2019 1:53 PM CDT PM CDT Checo Sky MD LAB BLOOD ORDERABLES Performing Organization Address [facility] Phon e Number APS DAVITA [facility] Sodium (09/26/2019 12:30 PM CDT) P athologist Signature Sodium 142 132 - 146 A[facility] mEq/L [facility] Specimen Anatomical Collection Method Collection Time Receive d Time (Source) Location / / Volume Laterality 09/26/2019 12:30 10/01/2019 1:53 PM CDT PM CDT Checo Sky MD LAB BLOOD ORDERABLES Performing Organization Address [facility] Phon e Number APS DAVITA [facility] Hepatitis B Surface Antigen (09/26/2019 12:30 PM CDT) athologist Signature Hep B Surface NEG -NEG [facility] Antigen [facility] Comment: This test utilizes Biotin (Vitamin B7) a s one of it's reagents. Testing may be interfered with in patients consuming Bi otin supplements. Please factor this when reviewing results. Specimen Anatomical Collection Method Collection Time Receive d Time (Source) Location / / Volume Laterality 09/26/2019 12:30 10/01/2019 1:53 PM CDT PM CDT Checo Sky MD LAB BLOOD ORDERABLES Performing Organization Address [facility] Code Phon e Number APS DAVITA [facility] (ABNORMAL) Ferritin (09/26/2019 12:30 PM CDT) P athologist Signature Ferritin 364 (H) 22 - 322 APS DAVITA ng/mL [facility] Specimen Anatomical Collection Method Collection Time Receive d Time (Source) Location / / Volume Laterality 09/26/2019 12:30 10/01/2019 1:53 PM CDT PM CDT Checo Sky MD LAB BLOOD ORDERABLES Performing Organization Address [facility] Phon e Number APS DAVITA [facility] HCV PANEL NONPROTOCL (09/26/2019 12:30 PM CDT) athologist Signature Hepatitis C 0.06 0.00 - APS [facility] Antibody 0.79 [facility] [...] Time (Source) Location / / Volume Laterality 09/26/2019 12:30 10/01/2019 1:53 PM CDT PM CDT Checo Sky MD LAB [id number] NSOLICITED RESULTS Performing Organization Address City/State/ZIP Code Phon e Number APS DAV[facility] (ABNORMAL) KT/V DAUGIRDAS (09/26/2019 12:30 PM CDT) [facility] gist Method Time Signature BUN 88 (H) 9 - 23 APS [facility] mg/dL [facility] BUN Post see comments mg/dL [facility] Dialysis [facility] Comment: Canceled - Draw Date not verifi ed. URR% 66 65 - 100 % APS DAV[facility] Specimen Anatomical Collection Method Collection Time Receive d Time (Source) Location / / Volume Laterality 09/26/2019 12:30 10/01/2019 1:53 PM CDT PM CDT Checo Sky MD LAB [id number] NSOLICITED RESULTS Performing Organization Address City/State/ZIP Code Phon e Number APS DAVITA [facility] (ABNORMAL) Iron Panel (Fe, TIBC, TSAT) (09/26/2019 12:30 PM CDT) athologist Signature Iron 45 (L) 65 - 175 A[facility] ug/dL [facility] TIBC 210 (L) 250 - 425 APS [facility] ug/dL [facility] UIBC 165 75 - 360 APS [facility] ug/dL [facility] Iron Saturation 21 21 - 49 % APS DAVITA (TSat) [facility] Specimen Anatomical Collection Method Collection Time Receive d Time (Source) Location / / Volume Laterality 09/26/2019 12:30 10/01/2019 1:53 PM CDT PM CDT Checo Sky MD LAB BLOOD ORDERABLES Performing Organization Address City/State/ZIP Code Phon e Number APS DAV[facility] (ABNORMAL) MONTHLY HD W/O CA/PH (09/26/2019 12:30 PM CDT) [facility] gist Method Time Signature Potassium 4.4 3.5 - 5.5 APS [facility] mEq/L [facility] Chloride 105 99 - 109 A[facility] mEq/L [facility] Bicarbonate 25 20 - 31 APS DAVITA (CO2) mEq/L [facility] Protein, Total 6.6 5.7 - 8.2 APS [facility] g/dL [facility] Albumin 3.7 3.2 - 4.8 APS [facility] g/dL [facility] AST (SGOT) 16 0 - 34 A[facility] U/L [facility] LDH 142 120 - 246 APS [facility] U/L [facility] Alkaline 75 46 - 116 APS [facility] Phosphatase U/L [facility] WBC 6.4 4.5 - APS [facility] 11.0 x [facility] 10'3 cells/uL RBC 3.32 (L) 4.60 - APS [facility]ITA 6.20 x [facility] 10'6 cells/uL Hgb 10.9 (L) 14.0 - APS DAVITA 18.0 g/dL [facility] Hematocrit 34.4 (L) 42.0 - APS DAVITA 52.0 % [facility] Hemoglobin x 3 32.7 (L) 42.0 - APS [facility]ITA 52.0 % [facility] MCV 103.6 (H) 80.0 - APS DAVITA 100.0 fL [facility] MCH 32.8 (H) 27.0 - APS DAVITA 31.0 pg [facility] MCHC 31.7 (L) 32.0 - APS DAVITA 36.0 g/dL [facility] RDW 14.7 11.0 - APS [facility] 15.0 % [facility] Platelets 151 150 - 400 APS DAVITA x 10'3 [facility] cells/uL Neutrophils % 74.9 % APS [facility] Auto [facility] Lymphocytes 15.6 % APS [facility] Manual [facility] Monocytes Manual 5.4 % APS DAV[facility] Eosinophil % 3.8 % APS DAV[facility] Basophils 0.3 % APS [facility] Relative [facility] Neutrophils 4,831.05 2,000 - APS DAV[facility] Absolute 8,800 [facility] Cell/uL Lymphocytes 1,006.20 1,100 - APS DAV[facility] Absolute (L) 4,800 [facility] Cell/uL Monocytes 348.30 0 - 1,100 APS [facility] Absolute Cell/uL [facility] Eosinophils 245.10 0 - 700 APS DAV[facility] Absolute Cell/uL [facility] Basophils 19.35 0 - 400 APS [facility] Absolute Cell/uL [facility] Comment: Diff percentage results will continue to be reported but without reference ranges per CAP guidelines and will not b e flagged as normal or abnormal. Absolute concentrations of circulating W BC are the preferable method of reporting and will continue to be evalua fareed against established reference ranges. Globulin 2.9 0.9 - 5 g/dL APS [facility] A/G Ratio 1.3 1 - 2.5 Calc APS [facility] Specimen Anatomical Collection Method Collection Time Receive d Time (Source) Location / / Volume Laterality 09/26/2019 12:30 10/01/2019 1:53 PM CDT PM CDT Checo Sky MD LAB [id number] NSOLICITED RESULTS Performing Organization Address City/State/ZIP Code Phon e Number APS [facility] Hepatitis B Core Antibody, Total (09/12/2019 12:30 PM CDT) athologist Signature HBc Total Ab, S NEG -NEG APS DAV[facility] Comment: This test utilizes Biotin (Vitamin B7) a s one of it's reagents. Testing may be interfered with in patients consuming Bi otin supplements. Please factor this when reviewing results. METHODOLOGY: [employer] Specimen Anatomical Collection Method Collection Time Receive d Time (Source) Location / / Volume Laterality 09/12/2019 12:30 09/15/2019 7:15 PM CDT AM CDT Checo Sky MD LAB BLOOD ORDERABLES Performing Organization Address City/State/ZIP Code Phon e Number APS DAV[facility] Hepatitis B Surface Antibody (09/12/2019 12:30 PM CDT) athologist Signature Hepatitis B <3 0 - 9 APS [facility] Surface Ab mIU/mL [facility] Comment: LESS THAN 10 NON-IMMUNE Specimen Anatomical Collection Method Collection Time Receive d Time (Source) Location / / Volume Laterality 09/12/2019 12:30 09/15/2019 7:15 PM CDT AM CDT Checo Sky MD LAB BLOOD ORDERABLES Performing Organization Address [facility] Code Phon e Number APS DAVITA [facility] Hepatitis B Surface Antigen (09/12/2019 12:30 PM CDT) P athologist Signature Hep B Surface NEG -NEG APS [facility] Antigen [facility] Comment: This test utilizes Biotin (Vitamin B7) a s one of it's reagents. Testing may be interfered with in patients consuming Bi otin supplements. Please factor this when reviewing results. Specimen Anatomical Collection Method Collection Time Receive d Time (Source) Location / / Volume Laterality 09/12/2019 12:30 09/15/2019 7:15 PM CDT AM CDT Checo Sky MD LAB BLOOD ORDERABLES Performing Organization Address [facility] Phon e Number APS DAVITA [facility] (ABNORMAL) PTH, Intact (09/12/2019 12:30 PM CDT) P athologist Signature PTH 121 (H) 18 - 80 APS DAVITA pg/mL [...] Time (Source) Location / / Volume Laterality 09/12/2019 12:30 09/15/2019 7:15 PM CDT AM CDT Checo Sky MD LAB BLOOD ORDERABLES Performing Organization Address City/[facility] Code Phon e Number APS DAVITA [facility] (ABNORMAL) Ferritin (09/12/2019 12:30 PM CDT) P athologist Signature Ferritin 543 (H) 22 - 322 APS DAVITA ng/mL [facility] Specimen Anatomical Collection Method Collection Time Receive d Time (Source) Location / / Volume Laterality 09/12/2019 12:30 09/15/2019 7:15 PM CDT AM CDT Checo Sky MD LAB BLOOD ORDERABLES Performing Organization Address City/[facility] Code Phon e Number ADIN RAYO [facility] (ABNORMAL) Hemoglobin A1c (09/12/2019 12:30 PM CDT) P athologist Signature Hemoglobin A1C 5.7 (H) 0.0 - 5.6 APS DAVITA %A1c [facility] Specimen Anatomical Collection Method Collection Time Receive d Time (Source) Location / / Volume Laterality 09/12/2019 12:30 09/15/2019 7:15 PM CDT AM CDT Checo Sky MD LAB BLOOD ORDERABLES Performing Organization Address City/[facility] Code Phon e Number APS PERRI [facility] ALT (09/12/2019 12:30 PM CDT) P athologist Signature ALT (SGPT) 18 10 - 49 U/L APS DAV[facility] Specimen Anatomical Collection Method Collection Time Receive d Time (Source) Location / / Volume Laterality 09/12/2019 12:30 09/15/2019 7:15 PM CDT AM CDT Checo Sky MD LAB BLOOD ORDERABLES Performing Organization Address [facility] Code Phon e Number APS PERRI [facility] (ABNORMAL) Glucose, random (09/12/2019 12:30 PM CDT) P athologist Signature Glucose 129 (H) 70 - 99 APS DAVITA mg/dL [facility] Specimen Anatomical Collection Method Collection Time Receive d Time (Source) Location / / Volume Laterality 09/12/2019 12:30 09/15/2019 7:15 PM CDT AM CDT Checo Sky MD LAB BLOOD ORDERABLES Performing Organization Address [facility] Code Phon e Number APS PERRI [facility] (ABNORMAL) Creatinine, serum (09/12/2019 12:30 PM CDT) P athologist Signature Creatinine 10.94 (H) 0.70 - APS DAVITA 1.30 mg/dL [facility] Specimen Anatomical Collection Method Collection Time Receive d Time (Source) Location / / Volume Laterality 09/12/2019 12:30 09/15/2019 7:15 PM CDT AM CDT Checo Sky MD LAB BLOOD ORDERABLES Performing Organization Address City/[facility]/ZIP Code Phon e Number APS DAVITA [facility] Sodium (09/12/2019 12:30 PM CDT) P athologist Signature Sodium 140 132 - 146 APS DAVITA mEq/L [facility] Specimen Anatomical Collection Method Collection Time Receive d Time (Source) Location / / Volume Laterality 09/12/2019 12:30 09/15/2019 7:15 PM CDT AM CDT Checo Sky MD LAB BLOOD ORDERABLES Performing Organization Address City/[facility] Code Phon e Number APS DAVITA [facility] HCV PANEL NONPROTOCL (09/12/2019 12:30 PM CDT) athologist Signature Hepatitis C 0.08 0.00 - APS DAVITA Antibody 0.79 [facility] [...] Time (Source) Location / / Volume Laterality 09/12/2019 12:30 09/15/2019 7:15 PM CDT AM CDT Checo Sky MD LAB [id number] NSOLICITED RESULTS Performing Organization Address City/[facility]/ZIP Code Phon e Number APS DAVITA [facility] (ABNORMAL) KT/V DAUGIRDAS (09/12/2019 12:30 PM CDT) P athologist Signature BUN 84 (H) 9 - 23 APS DAVITA mg/dL [facility] BUN Post 28 (H) 9 - 23 APS DAVITA Dialysis mg/dL [facility] URR% 67 65 - 100 % APS DAVITA [facility] Specimen Anatomical Collection Method Collection Time Receive d Time (Source) Location / / Volume Laterality 09/12/2019 12:30 09/15/2019 7:15 PM CDT AM CDT Checo Sky MD LAB [id number] NSOLICITED RESULTS Performing Organization Address City/State/ZIP Code Phon e Number APS DAVITA [facility] WOJCIECH/PHOS W/RATI (09/12/2019 12:30 PM CDT) athologist Signature Calcium 9.0 8.7 - 10.4 APS DAVITA mg/dL [facility] Phosphorus, 2.6 2.4 - 5.1 APS DAVITA Serum mg/dL [facility] CA/PHOS PRODUCT 23.4 21 - 53 APS DAVITA Calc [facility] Corrected 9.1 8.7 - 10.4 APS DAVITA Calcium mg/dL [facility] CA*PO4 CORRCTD 23.7 21 - 53 APS DAVITA Calc [facility] Specimen Anatomical Collection Method Collection Time Receive d Time (Source) Location / / Volume Laterality 09/12/2019 12:30 09/15/2019 7:15 PM CDT AM CDT Checo Sky MD LAB [id number] NSOLICITED RESULTS Performing Organization Address City/[facility]/ZIP Code Phon e Number APS DAVITA [facility] (ABNORMAL) Iron Panel (Fe, TIBC, TSAT) (09/12/2019 12:30 PM CDT) athologist Signature Iron 52 (L) 65 - 175 APS DAVITA ug/dL [facility] TIBC 230 (L) 250 - 425 APS DAVITA ug/dL [facility] UIBC 178 75 - 360 APS DAVITA ug/dL [facility] Iron Saturation 23 21 - 49 % APS DAVITA (TSat) [facility] Specimen Anatomical Collection Method Collection Time Receive d Time (Source) Location / / Volume Laterality 09/12/2019 12:30 09/15/2019 7:15 PM CDT AM CDT Checo Sky MD LAB BLOOD ORDERABLES Performing Organization Address City/State/ZIP Code Phon e Number APS DAVITA [facility] (ABNORMAL) MONTHLY HD W/O CA/PH (09/12/2019 12:30 PM CDT) [facility] gist Method Time Signature Potassium 3.7 3.5 - 5.5 APS DAVITA mEq/L [facility] Chloride 106 99 - 109 APS [facility] mEq/L [facility] Bicarbonate 19 (L) 20 - 31 APS DAVITA (CO2) mEq/L [facility] Protein, Total 6.7 5.7 - 8.2 APS DAVITA g/dL [facility] Albumin 3.9 3.2 - 4.8 APS DAVITA g/dL [facility] AST (SGOT) 20 0 - 34 APS DAVITA U/L [facility] LDH 141 120 - 246 APS DAVITA U/L [facility] Alkaline 80 46 - 116 APS [facility] Phosphatase U/L [facility] WBC 9.4 4.5 - APS DAVITA 11.0 x [facility] 10'3 cells/uL RBC 3.35 (L) 4.60 - APS DAVITA 6.20 x [facility] 10'6 cells/uL Hgb 11.2 (L) 14.0 - APS DAVITA 18.0 g/dL [facility] Hematocrit 34.2 (L) 42.0 - APS DAVITA 52.0 % [facility] MCV 102.3 (H) 80.0 - APS DAVITA 100.0 fL [facility] MCH 33.4 (H) 27.0 - APS DAVITA 31.0 pg [facility] MCHC 32.7 32.0 - APS DAVITA 36.0 g/dL [facility] RDW 15.4 (H) 11.0 - APS DAVITA 15.0 % [facility] Platelets 134 (L) 150 - 400 APS DAVITA x 10'3 [facility] cells/uL Neutrophils % 79.8 % APS DAVITA Auto [facility] Lymphocytes 9.4 % APS DAVITA Manual [facility] Monocytes Manual 6.7 % APS DAVITA [facility] Eosinophil % 3.9 % APS DAVITA [facility] Basophils 0.2 % APS DAVITA Relative [facility] Neutrophils 7,493.22 2,000 - APS DAVITA Absolute 8,800 [facility] Cell/uL Lymphocytes 882.66 (L) 1,100 - APS DAVITA Absolute 4,800 [facility] Cell/uL Monocytes 629.13 0 - 1,100 APS DAVITA Absolute Cell/uL [facility] Eosinophils 366.21 0 - 700 APS DAVITA Absolute Cell/uL [facility] Basophils 18.78 0 - 400 APS DAVITA Absolute Cell/uL [...] Calc APS DAVITA [facility] Hemoglobin x 3 33.6 (L) 42.0 - 52.0 % APS DAVITA [facility] Specimen Anatomical Collection Method Collection Time Receive d Time (Source) Location / / Volume Laterality 09/12/2019 12:30 09/15/2019 7:15 PM CDT AM CDT Checo Sky MD LAB [id number] NSOLICITED RESULTS Performing Organization Address City/State/ZIP Code Phon e Number APS DAVITA [facility] documented in this encounter Visit Diagnoses Not on filedocumented in this encounter
--- OUTSIDE RECORDS SUMMARY | 2022-04-17 14:33 | XMS_ITS | Encounter Summary ---
:1940 Author Organization [facility] Address [address] [place] [address] Care Team Providers Name Role Phone Unavailable Primary Care Provider Unavailable Encounter Details Date Type Department Care Team Description 04/11/2019 Treatment [facility] f Checo Jolly MD [address] [place] [address] [place] [address] [place], [place] [phone] Social History Tobacco Use Types Packs/Day Years Used Date Smoking Tobacco: Never Assessed Sex Assigned at Date Recorded Not on file documented as of this encounter Miscellaneous Notes Dialysis Note - Checo Sky MD - 04/11/2019 3:36 PM CST Date: Apr 11, 2019 Patient Name: Korey Mackay : 1940 Chart #: [id number] Sex: M This patient was personally seen for a complete visit as part of routine monthly dialysis care. A review of the dialysis treatment, blood pressure, estimated dry weight and recent lab values was made. These were discussed with the patient and staff as necessary. TELECOMMUNICATIONS CONSULTANT: Checo Sky MD LOCATION: [phone] SCHEDULE: -- 3rd Shift EDW: kg. DIALYZER: HD DURATION: NEEDLE SIZE: ANTICOAG: BATH: QB: ml/min QD: ml/min Subjective He is tired at the end of his dialysis treatments. He doesn't feel the best. But he says he is eating well and denies sob. Heart rate remains low. He is seeing cardiology. ep service at [facility] who feel he does not need a pacemaker. He is using his fistula now andhas had his line removed. BP is high when he comes but comes down with the dialysis treatments. He denies chest pain or sob. He is going to discuss home therapies with home dialysis nurse. We did discuss transplant today. I explained that the waiting time is about 5 y ears and that there are increased risks for someone his age. Appetite is good. Edema has completely disappeared. His BP has been in good control. Advanced Practitioner Subjective Review of Systems Fatigue. [...] made. Treatment and Adequacy Assessment BUN mg/dL 76 (03/14/19) 73 (02/16/19) 65 (01/12/19) TNP (01/10/19) 57 (12/06/18) CREATININE (MG/DL) IN SER/PLAS mg/dL 10.94 (03/28/19) 10.40 (02/21/19) 10.96 (01/24/19) 8.68 (12/20/18) 7.26 (11/22/18) URR% % 71 (03/14/19) 74 (02/16/19) 71 (01/12/19) 74 (12/06/18) 74 (11/08/18) KT/V, DAUGIRDAS II (CALC) TNP (02/21/19) Dialysis is adequate. Achieves prescribed time - Yes Achieves prescribed frequency - Yes Vascular Access Assessment Type of access: Catheter Surgeon - [facility], Access center in [place]. Staff and patient report access is working well. Anemia Assessment WBC (BLOOD) x 103 cells/uL 7.4 (03/28/19) [...] (02/21/19) 397 (01/26/19) 272 (12/20/18) 413 (11/22/18) Hemoglobin is at goal. Iron Saturation is below goal. Ferritin is at goal. Will adjust MISTY and intravenous iron per protocol. Nutritional and Metabolic Assessment ALBUMIN (G/DL) g/dL 3.7 (03/28/19) 3.8 (02/21/19) 3.9 (01/24/19) 3.9 (12/20/18) 3.9 (11/22/18) SODIUM mEq/L 141 (03/28/19) 136 (02/21/19) 137 (01/24/19) 139 (12/20/18) 136 (11/22/18) POTASSIUM (MMOL/L) IN SER/PLAS mEq/L 3.7 (03/28/19) 4.4 (02/25/19) TNP (02/21/19) 4.4 (01/24/19) 3.7 (12/20/18) BICARBONATE mEq/L 21 (03/28/19) 20 (02/21/19) 22 (01/24/19) 24 (12/20/18) TNP (11/22/18) Albumin is below goal. Encourage high-biological value protein intake. Oral Nutritional Supplement program. Potassium is at goal. Bicarbonate is below goal. Bone and Mineral Metabolism Assessment CALCIUM mg/dL 8.5 (03/14/19) 8.7 (02/21/19) 9.4 [...] Intact PTH is at goal. Cardiovascular Assessment acceptable. appropriate. too high, will decrease. Will decrease wt to 98.5 kg. Transplant Status: Resuscitation Status Doing well on dialysis. Hgb is at goal, adjusting epo dose. B P in good shape, although he does come in high. Seeing cardiology re slow heart rate. Cardiology does not think h needs pacer. Pth is good phos ok Adequacy is at goal fistula developing using two needles.Line removed. Will reduce dry wt. Checo Sky MD [ Signed And locked electronically On 04/11/2019 at 03:44:16 PM ] Transcribed: Checo Sky ( 04/11/2019 ) documented in this encounter Plan of Treatment Not on filedocumented as of this encounter Visit Diagnoses Not on filedocumented in this encounter
--- OUTSIDE RECORDS SUMMARY | 2022-04-17 14:33 | XMS_ITS | Encounter Summary ---
:1940 Author Organization [facility] Address [address] [place] [address] Care Team Providers Name Role Phone Unavailable Primary Care Provider Unavailable Encounter Details Date Type Department Care Team Description 05/02/2019 Treatment [facility] f Checo Jolly MD [address] [place] [address] [place] [address] [place], [place] [phone] Social History Tobacco Use Types Packs/Day Years Used Date Smoking Tobacco: Never Assessed Sex Assigned at Date Recorded Not on file documented as of this encounter Miscellaneous Notes Dialysis Note - Checo Sky MD - 05/02/2019 2:48 PM CST Date: May 02, 2019 Patient Name: Korey Mackay : 1940 Chart #: [id number] Sex: M This patient was personally seen for a basic visit as part of routine weekly dialysis care. A reviewof the dialysis treatment, blood pressure, estimated dry weight and recent lab values was made. These were discussed with the patient and staff as necessary. 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 DIALYZER: HD DURATION: NEEDLE SIZE: ANTICOAG: BATH: QB: ml/min QD: ml/min Subjective He is tired at the end of his dialysis treatments. He doesn't feel the best. Recently seen for upperrespiratory infection and given a course of antibiotics. He is better but still coughing intermittent.y But he says he is eating well and denies sob. Heart rate remains low although now a little better. He is seeing cardiology from [facility]. They at first did not recommend a pacer but now feel he will need one. But havn't scheduled a pacer til he gets back to [place] from [place] in September He is using his fistula now and has had his line removed. He did have a syncopal episode at a restaurant after dialysis two Fridays ago. He thinks he lost consciousness. He was sitting at the time. His called me after they had eaten and after he had gone home. I recommended he go to the ED to get checked but he did not. Since this episode the nurses feel his pulse is a little faster though he is still occasionally in the 40's He denies chest pain or sob. He is going to discuss home therapies with home dialysis nurse. We did discuss transplant today. I explained that the waiting time is about 5 y ears and that there are increased risks for someone his age. Appetite is good. Edema has completely disappeared. His bp is variable. Easily getting to dry weight. Advanced Practitioner Subjective: Fatigue. Problem List Description [...] and no changes were made. BUN mg/dL 87 (04/11/19) 76 (03/14/19) 73 (02/16/19) 65 (01/12/19) TNP (01/10/19) CREATININE (MG/DL) IN SER/PLAS mg/dL 10.60 (04/25/19) 10.94 (03/28/19) 10.40 (02/21/19) 10.96 (01/24/19) 8.68 (12/20/18) URR% % 71 (04/11/19) 71 (03/14/19) 74 (02/16/19) 71 (01/12/19) 74 (12/06/18) KT/V, DAUGIRDAS II (CALC) TNP (02/21/19) WBC (BLOOD) x 103 cells/uL 7.9 (04/25/19) 7.4 (03/28/19) 6.6 (02/21/19) 9.0 (01/24/19) 6.7 (12/20/18) HGB g/dL 10.6 (04/25/19) 10.4 (04/11/19) 10.4 (03/28/19) 9.9 (03/14/19) 10.9 (02/21/19) PLATELETS x 103 cells/uL 164 (04/25/19) 157 (03/28/19) 187 (02/21/19) 155 (01/24/19) 172 (12/20/18) IRON SATURATION % 24 (04/25/19) 28 (03/28/19) 28 (02/25/19) TNP (02/21/19) 26 (01/26/19) FERRITIN ng/mL 488 (04/25/19) 395 (03/28/19) 688 (02/21/19) 397 (01/26/19) 272 (12/20/18) ALBUMIN (G/DL) g/dL 4.0 (04/25/19) 3.7 (03/28/19) 3.8 (02/21/19) 3.9 (01/24/19) 3.9 (12/20/18) SODIUM mEq/L 137 (04/25/19) 141 (03/28/19) 136 (02/21/19) 137 (01/24/19) 139 (12/20/18) POTASSIUM (MMOL/L) IN SER/PLAS mEq/L 4.4 (04/25/19) 3.7 (03/28/19) 4.4 (02/25/19) TNP (02/21/19) 4.4 (01/24/19) BICARBONATE mEq/L 22 (04/25/19) 21 (03/28/19) 20 (02/21/19) 22 (01/24/19) 24 (12/20/18) CALCIUM mg/dL 8.5 (04/11/19) 8.5 (03/14/19) 8.7 (02/21/19) 9.4 (01/12/19) Pending (01/10/19) CORRECTED CALCIUM mg/dL 8.7 (04/11/19) 8.7 (03/14/19) 8.9 (02/21/19) 9.5 (01/12/19) 8.8 (12/06/18) PHOSPHORUS mg/dL 4.9 (04/11/19) 4.9 (03/14/19) 5.1 (02/21/19) 3.3 (01/12/19) Pending (01/10/19) CA*PO4 CORRCTD Calc 42.6 (04/11/19) 42.6 (03/14/19) 45.4 (02/21/19) 31.4 (01/12/19) 44.9 (12/06/18) IPTH pg/mL 226 (03/14/19) 262 (12/06/18) 202 (11/03/18) CALCIUM mg/dL 8.5 (04/11/19) 8.5 (03/14/19) 8.7 (02/21/19) 9.4 (01/12/19) Pending (01/10/19) CA/PHOS PRODUCT Calc 41.7 (04/11/19) 41.7 (03/14/19) 44.4 (02/21/19) 31.0 (01/12/19) 44.4 (12/06/18) CORRECTED CALCIUM mg/dL 8.7 (04/11/19) 8.7 (03/14/19) 8.9 (02/21/19) 9.5 (01/12/19) 8.8 (12/06/18) PHOSPHORUS mg/dL 4.9 (04/11/19) 4.9 (03/14/19) 5.1 (02/21/19) 3.3 (01/12/19) Pending (01/10/19) IPTH pg/mL 226 (03/14/19) 262 (12/06/18) 202 (11/03/18) Vascular Access Assessment: Type of access: Catheter Surgeon - [facility], Access center in [place]. Staff and patient report access is working well. Impression and Plan Stable on dialysis Phos pth are at goal. Hgb is at goal Alb is at goal. , says he is eating well . he is getting liquicel here. heart rate remains low. Did have syncope times 1. Cardiology has scheduled a pacer but not til he returns. Now using access, BP is high predialysis but low at the end. Would like to see how he is at other times and places. BP variable, Some days excellent. I think we need to raise the dry weight. Doing well on dialysis. Checo Sky MD [ Signed And locked electronically On 05/02/2019 at 03:00:21 PM ] Transcribed: Checo Sky ( 05/02/2019 ) documented in this encounter Plan of Treatment Not on filedocumented as of this encounter Visit Diagnoses Not on filedocumented in this encounter
--- OUTSIDE RECORDS SUMMARY | 2022-04-17 14:33 | XMS_ITS | Encounter Summary ---
:1940 Author Organization [facility] Address [address] [place] [address] Care Team Providers Name Role Phone Unavailable Primary Care Provider Unavailable Encounter Details Date Type Department Care Team Description 10/03/2019 Treatment [facility] f Checo Jolly MD [address] [place] [address] [place] [address] [place], [place] [phone] Social History Tobacco Use Types Packs/Day Years Used Date Smoking Tobacco: Never Assessed Sex Assigned at Date Recorded Not on file documented as of this encounter Miscellaneous Notes Dialysis Note - Checo Sky MD - 10/03/2019 2:29 PM CDT Date: Oct 03, 2019 Patient Name: Korye Mackay : 1940 Chart #: [id number] Sex: M This patient was personally seen for a basic visit as part of routine weekly dialysis care. A reviewof the dialysis treatment, blood pressure, estimated dry weight and recent lab values was made. These were discussed with the patient and staff as necessary. 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 DIALYZER: HD DURATION: NEEDLE SIZE: ANTICOAG: BATH: QB: ml/min QD: ml/min Subjective (Because of Covid 19 pandemic we are doing the visit by Telehealth) He is just back from [place] wherehe spent the winter. he did not like his experience there in the unit. He says he has been very tired at the end of his treatments . His planned pacer placement has been postponed because of Covid 19. He says heart rate in [place] was not a problem. He has had no further syncopal episodes. He has seen cardiology at [facility] . He did have a syncopal episode [...] and has been treated with antibiotics. He presented with a fever last week and was referred to a PUI unit. As it turns out he had an abscess on his buttock which is being treated now with oral antibiotics. He had two negative tests for Covid 19. He was readmitted to our unit today. He denies chest pain or sob. No further syncopal episodes. Advanced Practitioner Subjective: Fatigue. Problem List Description [...] and no changes were made. BUN mg/dL 88 (09/26/19) 84 (09/12/19) 74 (05/09/19) 87 (04/11/19) 76 (03/14/19) CREATININE (MG/DL) IN SER/PLAS mg/dL 11.34 (09/26/19) 10.94 (09/12/19) 10.05 (05/23/19) 10.60 (04/25/19) 10.94 (03/28/19) URR% % See Below (09/26/19) 67 (09/12/19) 68 (05/09/19) 71 (04/11/19) 71 (03/14/19) KT/V, DAUGIRDAS II (CALC) TNP (02/21/19) WBC (BLOOD) x 103 cells/uL 6.4 (09/26/19) [...] (09/12/19) 460 (05/23/19) 488 (04/25/19) 395 (03/28/19) ALBUMIN (G/DL) g/dL 3.7 (09/26/19) 3.9 (09/12/19) 3.8 (05/23/19) 4.0 (04/25/19) 3.7 (03/28/19) SODIUM mEq/L 142 (09/26/19) 140 (09/12/19) 141 (05/23/19) 137 (04/25/19) 141 (03/28/19) POTASSIUM (MMOL/L) IN SER/PLAS mEq/L 4.4 (09/26/19) 3.7 (09/12/19) 4.0 (05/23/19) 4.6 (05/09/19) 4.4 (04/25/19) BICARBONATE mEq/L 25 (09/26/19) 19 (09/12/19) 23 (05/23/19) 22 (04/25/19) 21 (03/28/19) CALCIUM mg/dL 9.0 (09/12/19) 9.0 (05/09/19) 8.5 (04/11/19) 8.5 (03/14/19) 8.7 (02/21/19) CORRECTED CALCIUM mg/dL 9.1 (09/12/19) 9.0 (05/09/19) 8.7 (04/11/19) 8.7 (03/14/19) 8.9 (02/21/19) PHOSPHORUS mg/dL 2.6 (09/12/19) 5.1 (05/09/19) 4.9 (04/11/19) 4.9 (03/14/19) 5.1 (02/21/19) CA*PO4 CORRCTD Calc 23.7 (09/12/19) 45.9 (05/09/19) 42.6 (04/11/19) 42.6 (03/14/19) 45.4 (02/21/19) IPTH pg/mL 121 (09/12/19) 226 (03/14/19) 262 (12/06/18) 202 (11/03/18) CALCIUM mg/dL 9.0 (09/12/19) 9.0 (05/09/19) 8.5 (04/11/19) 8.5 (03/14/19) 8.7 (02/21/19) CA/PHOS PRODUCT Calc 23.4 (09/12/19) 45.9 (05/09/19) 41.7 (04/11/19) 41.7 (03/14/19) 44.4 (02/21/19) CORRECTED CALCIUM mg/dL 9.1 (09/12/19) 9.0 (05/09/19) 8.7 (04/11/19) 8.7 (03/14/19) 8.9 (02/21/19) PHOSPHORUS mg/dL 2.6 (09/12/19) 5.1 (05/09/19) 4.9 (04/11/19) 4.9 (03/14/19) 5.1 (02/21/19) IPTH pg/mL 121 (09/12/19) 226 (03/14/19) 262 (12/06/18) 202 (11/03/18) Vascular Access Assessment: Type of access: Catheter Surgeon - [facility], Access center in [place]. Staff and patient report access is working well. Impression and Plan Stable on dialysis Phos pth are at goal. Hgb is at goal Alb is a little below goal. says he is eating well . he is getting liquicel here. Did have syncope times 1. Cardiology has scheduled a pacer but now on hold pending Covid 19 course. Abscess on buttock being treated with oral antibiotic. He was ruled out for Covid. Phos is a bit low. He is not on a binder. Now using access, Doing well on dialysis. Checo Sky MD [ Signed And locked electronically On 10/03/2019 at 02:39:08 PM ] Transcribed: Checo Sky ( 10/03/2019 ) documented in this encounter Plan of Treatment Not on filedocumented as of this encounter Visit Diagnoses Not on filedocumented in this encounter
--- OUTSIDE RECORDS SUMMARY | 2022-04-17 14:33 | XMS_ITS | Encounter Summary ---
:1940 Author Organization [facility] Address [address] [place] [address] Care Team Providers Name Role Phone Unavailable Primary Care Provider Unavailable Encounter Details Date Type Department Care Team Description 03/14/2019 Treatment [facility] f Checo Jolly MD [address] [place] [address] [place] [address] [place], [place] [phone] Social History Tobacco Use Types Packs/Day Years Used Date Smoking Tobacco: Never Assessed Sex Assigned at Date Recorded Not on file documented as of this encounter Miscellaneous Notes Dialysis Note - Checo Sky MD - 03/14/2019 4:18 PM CDT Date: Mar 14, 2019 Patient Name: Korey Mackay : 1940 Chart #: [id number] Sex: M This patient was personally seen for a complete visit as part of routine monthly dialysis care. A review of the dialysis treatment, blood pressure, estimated dry weight and recent lab values was made. These were discussed with the patient and staff as necessary. 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 DIALYZER: HD DURATION: NEEDLE SIZE: ANTICOAG: BATH: QB: ml/min QD: ml/min Subjective Pt just started on approximately two months ago. ago. He is tired at the end of his dialysis treatments. But overall says he is feeling ok. Heart rate remains low. He is seeing cardiology. and will have appointment with ep service. Holter showed low heart rate as low as the low 30's. He denies chest pain or sob. He [...] made. Treatment and Adequacy Assessment BUN mg/dL 73 (02/16/19) 65 (01/12/19) TNP (01/10/19) 57 (12/06/18) 38 (11/08/18) CREATININE (MG/DL) IN SER/PLAS mg/dL 10.40 (02/21/19) 10.96 (01/24/19) 8.68 (12/20/18) 7.26 (11/22/18) 5.59 (11/03/18) URR% % 74 (02/16/19) 71 (01/12/19) 74 (12/06/18) 74 (11/08/18) 69 (11/03/18) KT/V DAUGIRDAS TNP (02/21/19) Dialysis is adequate. Achieves prescribed time - Yes Achieves prescribed frequency - Yes Vascular Access Assessment Type of access: Catheter Surgeon - [facility] Staff and patient report access is working well. Anemia Assessment WBC (BLOOD) x 103 cells/uL 6.6 (02/21/19) 9.0 (01/24/19) 6.7 (12/20/18) 7.2 (11/22/18) 5.9 (11/03/18) HGB g/dL 10.9 (02/21/19) 11.0 (02/16/19) 11.0 (01/24/19) 11.3 (01/12/19) TNP (01/10/19) PLATELETS x 103 cells/uL 187 (02/21/19) 155 (01/24/19) 172 (12/20/18) 181 (11/22/18) 130 (11/03/18) IRON SATURATION % 28 (02/25/19) TNP (02/21/19) 26 (01/26/19) 20 (12/20/18) 18 (11/22/18) FERRITIN ng/mL 688 (02/21/19) 397 (01/26/19) 272 (12/20/18) 413 (11/22/18) 437 (11/03/18) Hemoglobin is at goal. Iron Saturation is below goal. Ferritin is at goal. Will adjust MISTY and intravenous iron per protocol. Nutritional and Metabolic Assessment ALBUMIN (G/DL) g/dL 3.8 (02/21/19) 3.9 (01/24/19) 3.9 (12/20/18) 3.9 (11/22/18) 3.9 (11/03/18) SODIUM mEq/L 136 (02/21/19) 137 (01/24/19) 139 (12/20/18) 136 (11/22/18) 136 (11/03/18) POTASSIUM (MMOL/L) IN SER/PLAS mEq/L 4.4 (02/25/19) TNP (02/21/19) 4.4 (01/24/19) 3.7 (12/20/18) 3.8 (11/22/18) BICARBONATE mEq/L 20 (02/21/19) 22 (01/24/19) 24 (12/20/18) TNP (11/22/18) 25 (11/03/18) Albumin is below goal. Encourage high-biological value protein intake. Oral Nutritional Supplement program. Potassium is at goal. Bicarbonate is below goal. Bone and Mineral Metabolism Assessment CALCIUM mg/dL 8.7 (02/21/19) 9.4 (01/12/19) Pending (01/10/19) 8.7 (12/06/18) 9.0 (11/08/18) CORRECTED CALCIUM mg/dL 8.9 (02/21/19) 9.5 (01/12/19) 8.8 (12/06/18) 9.1 (11/08/18) 9.1 (11/03/18) PHOSPHORUS mg/dL 5.1 (02/21/19) 3.3 (01/12/19) Pending (01/10/19) 5.1 (12/06/18) 4.1 (11/08/18) CA*PO4 CORRCTD Calc 45.4 (02/21/19) 31.4 (01/12/19) 44.9 (12/06/18) 37.3 (11/08/18) 32.8 (11/03/18) IPTH pg/mL 262 (12/06/18) 202 (11/03/18) Corrected Calcium is at goal. Phosphorous is at goal. Ca X P product is at goal. Intact PTH is at goal. Cardiovascular Assessment acceptable. appropriate. appropriate. Transplant Status: Resuscitation Status Doing well on dialysis. Hgb is at goal, adjusting epo dose. B P in good shape Seeing cardiology re slow heart rate. possible pacer. Pth is good phos ok Adequacy is at goal fistula developing using two needles. Checo Sky MD [ Signed And locked electronically On 03/14/2019 at 04:22:43 PM ] Transcribed: Checo Sky ( 03/14/2019 ) documented in this encounter Plan of Treatment Not on filedocumented as of this encounter Visit Diagnoses Not on filedocumented in this encounter
--- OUTSIDE RECORDS SUMMARY | 2022-04-17 14:33 | XMS_ITS | Encounter Summary ---
:1940 Author Organization [facility] Address [address] [place] [address] Care Team Providers Name Role Phone Unavailable Primary Care Provider Unavailable Encounter Details Date Type Department Care Team Description 05/30/2019 Treatment [facility] f Checo Jolly MD [address] [place] [address] [place] [address] [place], [place] [phone] Social History Tobacco Use Types Packs/Day Years Used Date Smoking Tobacco: Never Assessed Sex Assigned at Date Recorded Not on file documented as of this encounter Miscellaneous Notes Dialysis Note - Checo Sky MD - 05/30/2019 1:21 PM CST Date: May 30, 2019 Patient Name: Korey Mackay : 1940 Chart #: [id number] Sex: M This patient was personally seen for a basic visit as part of routine weekly dialysis care. A reviewof the dialysis treatment, blood pressure, estimated dry weight and recent lab values was made. These were discussed with the patient and staff as necessary. 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 DIALYZER: HD DURATION: NEEDLE SIZE: ANTICOAG: BATH: QB: ml/min QD: ml/min Subjective He is tired at the end of his dialysis treatments. Heart rate is a little better lately. He has seen cardiology at [facility] . They at first did not recommend a pacer but now feel he will need one. But havn't scheduled a pacer til he gets back to [place] from [place] in September He is using his fistula [...] and no changes were made. BUN mg/dL 74 (05/09/19) 87 (04/11/19) 76 (03/14/19) 73 (02/16/19) 65 (01/12/19) CREATININE (MG/DL) IN SER/PLAS mg/dL 10.05 (05/23/19) 10.60 (04/25/19) 10.94 (03/28/19) 10.40 (02/21/19) 10.96 (01/24/19) URR% % 68 (05/09/19) 71 (04/11/19) 71 (03/14/19) 74 (02/16/19) 71 (01/12/19) KT/V, DAUGIRDAS II (CALC) TNP (02/21/19) WBC (BLOOD) x 103 cells/uL 7.6 (05/23/19) 7.9 (04/25/19) 7.4 (03/28/19) 6.6 (02/21/19) 9.0 (01/24/19) HGB g/dL 10.4 (05/23/19) 10.4 (05/16/19) 11.8 (05/09/19) 10.6 (04/25/19) 10.4 (04/11/19) PLATELETS x 103 cells/uL 139 (05/23/19) 164 (04/25/19) 157 (03/28/19) 187 (02/21/19) 155 (01/24/19) IRON SATURATION % 28 (05/23/19) 24 (04/25/19) 28 (03/28/19) 28 (02/25/19) TNP (02/21/19) FERRITIN ng/mL 460 (05/23/19) 488 (04/25/19) 395 (03/28/19) 688 (02/21/19) 397 (01/26/19) ALBUMIN (G/DL) g/dL 3.8 (05/23/19) 4.0 (04/25/19) 3.7 (03/28/19) 3.8 (02/21/19) 3.9 (01/24/19) SODIUM mEq/L 141 (05/23/19) 137 (04/25/19) 141 (03/28/19) 136 (02/21/19) 137 (01/24/19) POTASSIUM (MMOL/L) IN SER/PLAS mEq/L 4.0 (05/23/19) 4.6 (05/09/19) 4.4 (04/25/19) 3.7 (03/28/19) 4.4 (02/25/19) BICARBONATE mEq/L 23 (05/23/19) 22 (04/25/19) 21 (03/28/19) 20 (02/21/19) 22 (01/24/19) CALCIUM mg/dL 9.0 (05/09/19) 8.5 (04/11/19) 8.5 (03/14/19) 8.7 (02/21/19) 9.4 (01/12/19) CORRECTED CALCIUM mg/dL 9.0 (05/09/19) 8.7 (04/11/19) 8.7 (03/14/19) 8.9 (02/21/19) 9.5 (01/12/19) PHOSPHORUS mg/dL 5.1 (05/09/19) 4.9 (04/11/19) 4.9 (03/14/19) 5.1 (02/21/19) 3.3 (01/12/19) CA*PO4 CORRCTD Calc 45.9 (05/09/19) 42.6 (04/11/19) 42.6 (03/14/19) 45.4 (02/21/19) 31.4 (01/12/19) IPTH pg/mL 226 (03/14/19) 262 (12/06/18) 202 (11/03/18) CALCIUM mg/dL 9.0 (05/09/19) 8.5 (04/11/19) 8.5 (03/14/19) 8.7 (02/21/19) 9.4 (01/12/19) CA/PHOS PRODUCT Calc 45.9 (05/09/19) 41.7 (04/11/19) 41.7 (03/14/19) 44.4 (02/21/19) 31.0 (01/12/19) CORRECTED CALCIUM mg/dL 9.0 (05/09/19) 8.7 (04/11/19) 8.7 (03/14/19) 8.9 (02/21/19) 9.5 (01/12/19) PHOSPHORUS mg/dL 5.1 (05/09/19) 4.9 (04/11/19) 4.9 (03/14/19) 5.1 (02/21/19) 3.3 (01/12/19) IPTH pg/mL 226 (03/14/19) 262 (12/06/18) 202 (11/03/18) Vascular Access Assessment: Type of access: Catheter Surgeon - [facility], Access center in [place]. Staff and patient report access is working well. Impression and Plan Stable on dialysis Phos pth are at goal. Hgb is at goal Alb is a little below goal. says he is eating well . he is getting liquicel here. heart rate remains low but better than it was only occasionally in the 40's and for short periods. Did have syncope times 1. Cardiology has scheduled a pacer but not til he returns from [place]. Now using access, Doing well on dialysis. Checo Sky MD [ Signed And locked electronically On 05/30/2019 at 01:31:28 PM ] Transcribed: Checo Sky ( 05/30/2019 ) documented in this encounter Plan of Treatment Not on filedocumented as of this encounter Visit Diagnoses Not on filedocumented in this encounter
== END 2022-04-17 14:12 | disposition home or self-care (01) ==
LOC: RAD 14:13
PROVIDERS: PCP Family Medicine; Visit Provider Nurse Practitioner Gerontology
DX: I25.5 Ischemic cardiomyopathy (principal); I51.7 Cardiomegaly; I34.0 Nonrheumatic mitral (valve) insufficiency
CPT/HCPCS: 93306

== ENCOUNTER 2022-12-12 15:11 | Emergency (ER) | payer MEDICARE, OTHER, SELFPAY ==
[2022-12-12 15:15] VITALS: BP 102/61; PULSE 72; RESP 18; TEMP 36.6; O2SAT 93; BMI 29.8
--- NOTE | 2022-12-12 15:37 | CRLHL7_ITS ---
For Patients: As a result of the Century Cures Act, medical imaging exams and procedure reports are released immediately into your electronic medical record. You may view this report before your referring provider. If you have questions, please contact your health care provider. INDICATION: Sharp left-sided head pain. COMPARISON: None available. TECHNIQUE: CT examination of the head was performed with 3 mm thick axial and 2 mm thick coronal and sagittal sections without intravenous contrast. Images were obtained from the vertex of the skull through the skull base, and I examined the images with the brain and bone windows. Please note that all CT scans at this facility use dose modulation, iterative reconstruction, and/or weight-based dosing when appropriate to reduce radiation dose to as low as reasonably achievable. FINDINGS: : There is moderate dilatation of the ventricles and sulci representing age-appropriate atrophy. There is mild periventricular and subcortical white matter hypodensity most prominent in the left posterior parietal region, representing age-appropriate small vessel ischemia. The brain is otherwise normal in appearance for the patient`s age on today`s study, with no sign of mass lesion, mass effect, hemorrhage, or edema. Incidental note is made of a partially empty sella, a common finding in a patient of this age. The visualized portions of the orbits are normal in appearance status post cataract surgery. The visualized portions of the paranasal sinuses and mastoids are clear. The osseous structures are normal in their appearance with no sign of abnormality in the skull base or calvarium. IMPRESSION: Normal noncontrast CT of the head for the patient`s age. Moderate, age-appropriate diffuse cerebral atrophy. Mild, age-appropriate small-vessel ischemic change. Please note that all CT scans at this facility use dose modulation, iterative reconstruction, and/or weight-based dosing when appropriate to reduce radiation dose to as low as reasonably achievable. Dictated by Boby Damon MD @ 12/12/2022 5:06:09 PM (Electronically Signed)
--- NOTE | 2022-12-12 15:38 | ED.HA ---
HPI - Headache General Chief Complaint: Headache/Migraine Stated Complaint: left side head pain radiating down neck Time Seen by Provider: 12/12/22 15:16 History of Present Illness HPI Narrative: This 82-year-old male comes in because of brief sharp pains in his head occurring over the past couple days. He is very hard of hearing. He does have peripheral neuropathy and uses a walker for ambulating. He is receiving dialysis and these pains began after his last session 2 days ago. He does not report any neurologic deficit. He has not had any fevers or signs of infection. He states that he has had symptoms somewhat like this in the past. Related Data Home Medications Medication Instructions Recorded Confirmed levothyroxine 12/12/22 pravastatin 12/12/22 Previous Rx's Medication Instructions Recorded hydrocodone 5 mg-acetaminophen 325 1 tab PO Q4-6H PRN pain #10 tabs 12/12/22 mg tablet Review of Systems Status of ROS: Reports: 10 or more systems reviewed and unremarkable except as noted in History and below Narrative: Constitutional: No fevers, no weight gain or loss. Eyes: No discharge. No vision changes. HENT: No congestion, no sore throat, no ear pain. Cardiovascular: No chest pain, no palpitations. Respiratory: No shortness of breath, no wheezes, no cough. Gastrointestinal: No abdominal pain, no vomiting, no diarrhea. Genitourinary: No dysuria, no hematuria. Musculoskeletal: Normal range of motion. Skin: No rashes, no pruritis. Neurological: No dizziness, weakness, sensory change, speech change. Endo/Heme/Allergies: No bruising or bleeding. No polydipsia. Pysch: no suicidality, no anxiety, no insomnia. All other systems reviewed and are negative. PFSH PFS Social History Smoking Status: Never smoker Do you use any of these nicotine containing products: None Second hand tobacco smoke exposure: No How often do you have a drink containing alcohol: never How often do you have six or more drinks on one occasion: Never AUDIT-C Alcohol total score: 0 Non-prescribed substance use: denies use service: No Exam Narrative: Exam Narrative: Constitutional: Well-developed, well-nourished, no acute distress. HEENT: Normocephalic, atraumatic. Neck: Normal range of motion. Nontender. Supple. Heart: Regular. No murmurs. Normal rate. Intact distal pulses. Lungs: Clear to auscultation. No chest discomfort. No wheezes, rhonchi, or rales. Abdomen: Normal bowel sounds. Nontender. No rebound tenderness. Genitalia: Deferred. Back: No midline tenderness. Normal range of motion. Extremities: Normal range of motion. No injury. Skin: Intact. No rash. Warm. No erythema or pallor. Neurologic: No altered sensation. No weakness. Alert and oriented. No facial asymmetry. Very hard of hearing. No unilateral symptoms. Psychiatric: No suicidality. No anxiety or depression. No insomnia. Nursing notes and vitals signs are reviewed. Const: Vital Signs, click to edit/add: Vital Signs - 24 hr 12/12/22 15:15 Temperature 97.8 F Pulse Rate [Right Pulse Oximeter] 72 Respiratory Rate 18 Blood Pressure [Ri ght Upper Arm] 102/61 Pulse Oximetry 93 Oxygen Delivery Me thod Room Air Course Vital Signs Vital signs: Initial Vital Signs Temperature 97.8 F 12/12/22 15:15 Temperature Source Temporal Artery Scan 12/12/22 15:15 Pulse Rate 72 12/12/22 15:15 Respiratory Rate 18 12/12/22 15:15 Blood Pressure 102/61 12/12/22 15:15 Blood Pressure Mean 74 12/12/22 15:15 Blood Pressure Position Sitting 12/12/22 15:15 Pulse Oximetry 93 12/12/22 15:15 Oxygen Delivery Method Room Air 12/12/22 15:15 Vital Signs Temperature 97.8 F 12/12/22 15:15 Pulse Rate 72 12/12/22 15:15 Respiratory Rate 18 12/12/22 15:15 Blood Pressure 102/61 12/12/22 15:15 Pulse Oximetry 93 12/12/22 15:15 Oxygen Delivery Method Room Air 12/12/22 15:15 Temperature 97.8 F 12/12/22 15:15 Pulse Rate 72 12/12/22 15:15 Respiratory Rate 18 12/12/22 15:15 Blood Pressure 102/61 12/12/22 15:15 Pulse Oximetry 93 12/12/22 15:15 Oxygen Delivery Method Room Air 12/12/22 15:15 MDM - Headache MDM Narrative Medical decision making narrative: This patient has brief intermittent sharp pains on the left side of his head and otherwise feels normal. These happen occasionally through the day. It sounds like it could be trigeminal neuralgia. The patient has a normal exam. He is in dialysis 3 times a week. I did do a CT scan of his head which returns with no acute findings. The patient has normal vital signs and shows no neurologic deficits. In between these brief episodes lasting a few seconds he feels normal. The patient is elderly and I am cautious about using Tegretol. He did receive an oral dose of dexamethasone. He also received a prescription for few tablets of [place] that can be used if needed when symptoms become more frequent. Discharge Plan Discharge Clinical Impression: Headache Patient Disposition: Home w/ Parent or Adult Condition: Unchanged Additional Instructions: Take medication as needed and directed. Follow up with primary physician or return if worsening. Prescriptions: New hydrocodone-acetaminophen 5-325 mg tablet 1 tab PO Q4-6H PRN (Reason: pain) Qty: 10 0RF No Action levothyroxine pravastatin Follow Up/Referrals: Dylan Xiong MD [Referring] - Stand Alone Forms: howsimple Info Instructions
--- OUTSIDE RECORDS SUMMARY | 2022-12-12 15:59 | XMS_ITS ---
Author Name Arnie Gustafson Address [address] [place] [address] Phone [phone] Organization [facility] e, NA DOCUMENT DISCLAIMER The information in the [facility] Dialysis Provider Note Document represents a providersdocumented clinical note containing certain health and medical information. It may not contain the complete medical history for the patient and should be independently verified. The represented time in the document is Eastern Time PROVIDER ROUNDING NOTE COMP Provider?Rounding?Note?Comp?-?Korey?Codie?-?Chart?#:?[id number] Patient?was?seen?on:?06/25/2022 Was?Patient?seen?today?:?06/25/2022 Method?of?Interaction:?Face?to?face Date?of?Interaction:?06/25/2022 Patient?is?stable Patient?issues?include: 128/58 Prior?Treatment:?06/23/2022? Dialyzer:?180NRe?Optiflux? Dialysate:?2.0?K,?2.5 Ca,?1.0?Mg,?100?Dextrose?(G2251)? Actual?Time:?03:31?Prescribed?Time:?3:30? Avg?BFR:?450?Avg?DFR:?500? Wt?Gain?(kg):?3.40?EDW?(kg):?101.00? post?Wt?(kg):? increase?[id number] VITALS ?Date:?Temperature:?Pulse:?Respirations:?BP?(Sitting):?BP?(Standing):?Weight:? Volume?Management?Comments ADEQUACY ?spKt/V?eKdrt/V?OLC?(Del)?spKtv?1.37?06/09/22 ???1.17 ?06/09/22 ???1.44?06/23/22 ???1.48?05/26/22 ???1.31 ?05/26/22 ???1.41?06/20/22 ???1.23?05/19/22 ???1.07 ?05/19/22 ???1.30?06/18/22 ?URR?Potassium,?Serum?&#160 ;?Bicarbonate?Creatinine?%?mEq/L?mEq/L?&#16 0;?mg/dL ?70?06/09/22 ?? 4.4?06/23/22 ???30?06/23/22 ???10.47? 06/23/22 ???71?05/26/22 ?? 4.5?06/09/22 ???26?05/12/22 ???7.94?05/12/22 ???65?05/19/22 ?? 4.5?05/26/22 ???22?09/17/21 ???10.41? 09/17/21 ?-?Adequacy?parameters?reviewed? Adequacy ?-?Adequacy?target?met?Sitting?BP?Pre?Sitting BP?Post?Standing?BP?Post?120?/?75??06/23/22?124?/?59??06/23/22?119?/?54??06/23/22?125?/?84??06/20/22?114?/?63??06/20/22?114?/?49??06/20/22?110?/?54??06/18/22?102?/?58??06/18/22?108?/?58??06/18/22? Blood?Pressure ?-?Blood?pressure?controlled? Fluid?Status ?-?Fluid?status?acceptable? Interdialytic?Weight?Gain ?-?Interdialytic?weight?gain?acceptable? Prescription?Compliance ?-?Prescription?compliance?acceptable? ?-?Potassium?controlled? VASCULAR?ACCESS ?Type?Exit?Site?&#1 60;??Status?Access?ID?AVFistula-Standard?Forearm-Left?&#160 ;?Active?(In?Use)?[id number]? Access?Flows ??970mL?per?min?06/18/22 ??972mL?per?min?06/11/22 ??1572mL?per?min?09/07/21 ??-?Vascular?access?reviewed? ??-?Current?access?is?functioning?well.? ANEMIA ?HGB? Transferrin?Sat.?(Calc) ?Ferritin?g/dL?%?ng/m L?10.0?06/23/22? ??34?06/23/22?578?06/23/22? ??9.2?06/16/22? ??36?05/12/22?742??&#160 ;?05/12/22? ??9.6?06/09/22? ??27?09/17/21?409??&#160 ;?09/17/21? Erythropoietin-Stimulating?Agents?(MISTY)?Administrations ??60?mcg?Mircera?06/13/22 ??50?mcg?Mircera?05/30/22 ??50?mcg?Mircera?05/16/22 IV?Iron?Administrations ??100?mg?Venofer?10/03/21 ??100?mg?Venofer?10/01/21 ??100?mg?Venofer?09/28/21 ?-?Anemia?reviewed? ?-?MISTY?adjusted?per?protocol? Mircera?per?protocol BONE?AND?MINERAL?METABOLISM ?Calcium,?Total?Calcium,?Corrected?Phosphorous? &#160 ;?PTH-Intact,?Plasma?mg/dL?mg/dL?mg/dL?pg/mL?9.5?06/23/22? ??9.7?06/23/22? ??3.2?&#16 0;???06/23/22? ??176?06/23/22? ??9.0?05/12/22? ??9.2?05/12/22? ??2.6?&#16 0;???05/12/22? ??274?05/12/22? ??8.6?09/17/21? ??8.6?09/17/21? ??3.4?&#16 0;???09/17/21? ??393?09/17/21? Vitamin?D?25?Hydroxy ??56.6?06/23/22 ??57.4?05/12/22 ??56.0?06/18/21 Vitamin?D?Analogue?Administrations ??2?mcg?Doxercalcifer?06/23/22 ??2?mcg?Doxercalcifer?06/20/22 ??2?mcg?Doxercalcifer?06/18/22 ?-?Bone?and?mineral?metabolism?parameters?reviewed? ?-?Calcium?controlled? ?-?Phosphorus?controlled? PTH ?-?PTH?within?target? Renvela?on?hold NUTRITION ?Albumin?eNPCR?g/dL?g/kg/day?3.8?06/23/22? ??0.68 ?06/09/22? ??3.7?05/12/22? ??0.76 ?05/26/22? ??4.0?09/17/21? ??0.80 ?05/19/22? HOME?MEDICATIONS ?Milo?Low?Dose?Aspirin?(aspirin)??81?mg,?oral,?1 tablet?once?a?day ?Dialyvite?(b?complex?81-jicls-p-biot-zinc)??4-578-850-50?mg-mg-m cg-mg,?oral,?1?tablet?once?a?day ?Lantus?U-100?Insulin?(insulin?glargine)??100?unit/mL,? subQ,?18?unit?every?evening ?Levo-T?(levothyroxine)??175?mcg,?oral,?1?tablet?once a?day ?Novolog?Flexpen?U-100?Insulin?(insulin?aspart?u-100)?? 100?unit/mL?(3?mL),?subQ,?5?unit?three?times?a?day ?pravastatin?(pravastatin)??10?mg,?oral,?1?tablet?once a?day ?Protonix?(pantoprazole)??40?mg,?oral,?1?tablet?once a?day ?Renvela?(sevelamer?carbonate)??800?mg,?oral,?1?tablet as?directed ?Singulair?(montelukast)??10?mg,?oral,?1?tablet?once a?day ?Spiriva?Respimat?(tiotropium?bromide)??2.5?mcg/actuation,?i nhl,?1?puff?once?a?day ?Wixela?Inhub?(fluticasone?propion-salmeterol)??250-50?mcg/dose,& #160;inhl,?1?puff?twice?a?day EXAM ?-?Exam?not?performed? ?-?Vital?signs?reviewed? INTEREST?AND?ELIGIBILITY?(If?changes?are?made,?Please?notify?SW?below) ?Date?of?discussion?from?transplant?assessment:?05/15/2022 ?Patient?already?on?transplant?list??No Arnie?Sj,? END OF DOCUMENT
--- OUTSIDE RECORDS SUMMARY | 2022-12-12 15:59 | XMS_ITS ---
Author Name Digna Batresanne Address [address] [place] [address] Phone [phone] Organization [facility] e, NA DOCUMENT DISCLAIMER Multiple document versions may exist, please be sure you review the latest version. The information in the [facility] Progress Note Document represents a providers documented clinical note containing certain health and medical information. It may not contain the complete medical history for the patient and should be independently verified. The represented time in the document is Eastern Time PROVIDER ROUNDING NOTE BASIC Patient:?Korey?Codie,?1940,?82y,?M Dialysis?Location:?[facility] Attending?Station Mechanic:?Jessica Service?Date:?09/22/2022 Service?Provider:?Lilian?Gisel,?WHEEL BLOCKER I?met?face?to?face?with?the?patient?today. 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 BP?Stand?Pre ??09/19/2022:?170/81 ??09/17/2022:?167/80 ??09/15/2022:?142/71 BP?Sit?Pre ??09/19/2022:?170/82 ??09/17/2022:?169/88 ??09/15/2022:?158/74 BP?Stand?Post ??09/19/2022:?132/52 ??09/17/2022:?155/75 ??09/15/2022:?128/57 BP?Sit?Post ??09/19/2022:?170/76 ??09/17/2022:?161/72 ??09/15/2022:?140/74 Tx?Duration ??09/19/2022:?3:34 ??09/17/2022:?3:30 ??09/15/2022:?3:30 Missed?Treatments 0?-?last?30?days 0?-?last?60?days FLUID?ASSESSMENT EDW?(kg) ??09/19/2022:?99.5 ??09/17/2022:?99.5 ??09/15/2022:?99.5 Weight?Pre?(kg) ??09/19/2022:?100.7 ??09/17/2022:?101.3 ??09/15/2022:?101.4 Weight?Post?(kg) ??09/19/2022:?98.5 ??09/17/2022:?99.0 ??09/15/2022:?99.3 PWV?(kg) ??09/19/2022:?-1.0 ??09/17/2022:?-0.5 ??09/15/2022:?-0.2 UF?Rate?(mL/kg/hr) ??09/19/2022:?6.3 ??09/17/2022:?6.6 ??09/15/2022:?6 ADEQUACY?ASSESSMENT spKt/V,?URR ??09/08/2022:?1.44,?71.0 ??08/06/2022:?1.4,?72.0 ??07/21/2022:?1.42,?71.0 ACCESS?ASSESSMENT ??Access?Type:?AVFistula ??Access?SubType:?Standard ??Access?Status:?Active?(In?Use)?-?10/19/2020 ??Access?Location:?Left?Forearm ??Created:?--/--/---- Flow ??09/10/2022:?705 ??08/08/2022:?1016 ??07/11/2022:?931 ANEMIA?ASSESSMENT HGB,?TSAT ??09/15/2022:?11.2,?34.0 ??09/08/2022:?11.0,?- ??09/01/2022:?12.0,?- ?? Ferritin ??09/15/2022:?673.0 ??08/25/2022:?637.0 ??06/23/2022:?578.0 Mircera,?IVP?(mcg) ??09/12/2022:?100 ??08/22/2022:?150 ??08/15/2022:?100 Iron?Sucrose?(Venofer)?(mg) ??09/19/2022:?100 ??09/17/2022:?100 ??09/15/2022:?100 BMM?ASSESSMENT Phosphorus,?Calcium ??09/15/2022:?2.8,?8.9 ??08/25/2022:?2.1,?9.6 ??07/28/2022:?2.9,?9.0 ?? PTH,?Intact ??09/15/2022:?223.0 ??08/25/2022:?116.0 ??07/28/2022:?212.0 Doxercalciferol?(Hectorol)?(mcg) ??09/19/2022:?1 ??09/17/2022:?1 ??09/15/2022:?1 NUTRITION?ASSESSMENT Albumin,?Potassium ??09/15/2022:?3.6,?3.9 ??09/08/2022:?-,?4.1 ??09/01/2022:?-,?4.3 ?? eNPCR ??09/08/2022:?0.61 ??08/06/2022:?0.7 ??07/21/2022:?0.6 DIAGNOSIS Chief?Complaint:?N18.6?End?stage?renal?disease Patient?data?updated?09/22/2022?at?6:13?PM Signed?By:?Gisel,?Lilian,?WHEEL BLOCKER??on?09/22/2022?6:13:54 PM END OF DOCUMENT
--- OUTSIDE RECORDS SUMMARY | 2022-12-12 15:59 | XMS_ITS ---
Author Name Sj Arnie Address [address] [place], [place] [address] Phone [phone] Organization [facility] e, NA DOCUMENT DISCLAIMER The information in the [facility] Dialysis Provider Note Document represents a providersdocumented clinical note containing certain health and medical information. It may not contain the complete medical history for the patient and should be independently verified. The represented time in the document is Eastern Time PROVIDER ROUNDING NOTE BASIC Revised?By:?Arnie?Sj? Revised?Date:?05/21/2022?4:55:28?PM Revised?Reason:?updated Patient:?Korey?Codie,?1940,?82y,?M Dialysis?Location:?[facility] Attending?Adult Care Manager:?Jessica Service?Date:?05/21/2022 Service?Provider:?Arnie?Sj,? I?saw?the?patient?remotely?today?for?a?telehealth?visit ?using?an?audiovisual?platform?during?the?COVID-19?PHE. 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;with?diabetic?chronic?kidney?disease Comments:?winter?texan?from?[place] has?been?on?HD?for?2?years reconciled?medications monitor?BP?at?home DIALYSIS?PRESCRIPTION ??IHD?3x?Week?Start?date:?05/14/22 ??Dialyzer:?180NRe?Optiflux ??BFR:?500 ??DFR:?Manual?500 ??Potassium:?3.0 ??Sodium:?138 ??EDW:?98.5 ??Duration:?3:30 ??Calcium:?2.5 ??Bicarb:?32 ??Rx?updated?on:?05/14/2022 TREATMENT?ASSESSMENT BP?Stand?Pre ??05/19/2022:?151/77 ??05/16/2022:?160/70 BP?Sit?Pre ??05/19/2022:?163/70 ??05/16/2022:?138/65 ??05/14/2022:?126/66 BP?Stand?Post ??05/19/2022:?101/46 ??05/16/2022:?109/41 BP?Sit?Post ??05/19/2022:?112/59 ??05/16/2022:?122/73 ??05/14/2022:?139/72 Tx?Duration ??05/19/2022:?3:31 ??05/16/2022:?3:38 ??05/14/2022:?3:35 Missed?Treatments 0?-?last?30?days 0?-?last?60?days FLUID?ASSESSMENT EDW?(kg) ??05/19/2022:?98.5 ??05/16/2022:?98.5 ??05/14/2022:?98.5 Weight?Pre?(kg) ??05/19/2022:?103.7 ??05/16/2022:?103.2 ??05/14/2022:?103.7 Weight?Post?(kg) ??05/19/2022:?100.1 ??05/16/2022:?100.6 ??05/14/2022:?101.7 PWV?(kg) ??05/19/2022:?1.6 ??05/16/2022:?2.1 ??05/14/2022:?3.2 UF?Rate?(mL/kg/hr) ??05/19/2022:?10.2 ??05/16/2022:?7.1 ??05/14/2022:?5.5 ADEQUACY?ASSESSMENT spKt/V,?URR ??04/09/2022:?1.65,?76.0 ??03/12/2022:?1.39,?69.0 ??02/12/2022:?1.57,?73.0 ACCESS?ASSESSMENT ??Access?Type:?AVFistula ??Access?SubType:?Standard ??Access?Status:?Active?(In?Use)?-?10/19/2020 ??Access?Location:?Left?Forearm ??Created:?--/--/---- Flow ??03/21/2022:?883 ??11/15/2021:?955 ??09/07/2021:?1572 ANEMIA?ASSESSMENT HGB,?TSAT ??05/19/2022:?9.2,?- ??05/12/2022:?9.3,?36.0 ??05/07/2022:?9.2,?- ?? Ferritin ??05/12/2022:?742.0 ??03/12/2022:?965.0 ??12/11/2021:?620.0 Mircera,?IVP?(mcg) ??05/16/2022:?50 ??05/09/2022:?30 ??04/25/2022:?30 Iron?Sucrose?(Venofer)?(mg) ??05/09/2022:?50 ??05/02/2022:?50 ??03/17/2022:?50 BMM?ASSESSMENT Phosphorus,?Calcium ??05/12/2022:?2.6,?9.0 ??04/09/2022:?6.1,?9.5 ??03/12/2022:?3.8,?9.1 ?? PTH,?Intact ??05/12/2022:?274.0 ??03/12/2022:?400.0 ??02/12/2022:?329.0 Vitamin?D?(Calcitriol)?Oral?(mcg) ??05/19/2022:?1 ??05/16/2022:?1 ??05/14/2022:?1 NUTRITION?ASSESSMENT Albumin,?Potassium ??05/19/2022:?-,?4.1 ??05/12/2022:?3.7,?3.5 ??04/09/2022:?4.2,?4.4 ?? eNPCR ??04/09/2022:?1.13 ??03/12/2022:?0.89 ??02/12/2022:?0.82 DIAGNOSIS Chief?Complaint:?N18.6?End?stage?renal?disease Patient?data?updated?05/21/2022?at?4:52?PM Signed?By:?Sj,?Arnie,???on?05/21/2022?4:55:28?PM END OF DOCUMENT
--- OUTSIDE RECORDS SUMMARY | 2022-12-12 15:59 | XMS_ITS ---
Author Name Sj Arnie Address [address] [place] [address] Phone [phone] Organization [facility] e, NA DOCUMENT DISCLAIMER Multiple document versions may exist, please be sure you review the latest version. The information in the [facility] Progress Note Document represents a providers documented clinical note containing certain health and medical information. It may not contain the complete medical history for the patient and should be independently verified. The represented time in the document is Eastern Time PROVIDER ROUNDING NOTE BASIC Patient:?Korey?Codie,?1940,?82y,?M Dialysis?Location:?[place] Attending?Asbestos Wire Finisher:?Jessica Service?Date:?09/10/2022 Service?Provider:?Arnie?Sj,? I?met?face?to?face?with?the?patient?today. 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;with?diabetic?chronic?kidney?disease DIALYSIS?PRESCRIPTION ??IHD?3x?Week?Start?date:?08/29/22 ??Dialyzer:?180NRe?Optiflux ??BFR:?500 ??DFR:?Manual?500 ??Potassium:?3.0 ??Sodium:?138 ??EDW:?99.5 ??Duration:?3:30 ??Calcium:?2.5 ??Bicarb:?32 ??Rx?updated?on:?08/28/2022 TREATMENT?ASSESSMENT BP?Stand?Pre ??09/05/2022:?162/62 ??09/03/2022:?145/80 BP?Sit?Pre ??09/08/2022:?124/63 ??09/05/2022:?138/72 ??09/03/2022:?166/86 BP?Stand?Post ??09/08/2022:?148/68 ??09/05/2022:?147/77 ??09/03/2022:?167/71 BP?Sit?Post ??09/08/2022:?167/65 ??09/05/2022:?166/77 ??09/03/2022:?152/72 Tx?Duration ??09/08/2022:?3:36 ??09/05/2022:?3:31 ??09/03/2022:?3:30 Missed?Treatments 0?-?last?30?days 0?-?last?60?days FLUID?ASSESSMENT EDW?(kg) ??09/08/2022:?99.5 ??09/05/2022:?99.5 ??09/03/2022:?99.5 Weight?Pre?(kg) ??09/08/2022:?101.3 ??09/05/2022:?99.2 ??09/03/2022:?100.3 Weight?Post?(kg) ??09/08/2022:?99.1 ??09/05/2022:?98.9 ??09/03/2022:?99.5 PWV?(kg) ??09/08/2022:?-0.4 ??09/05/2022:?-0.6 ??09/03/2022:?0.0 UF?Rate?(mL/kg/hr) ??09/08/2022:?6.2 ??09/05/2022:?0.9 ??09/03/2022:?2.3 ADEQUACY?ASSESSMENT spKt/V,?URR ??09/08/2022:?1.44,?71.0 ??08/06/2022:?1.4,?72.0 ??07/21/2022:?1.42,?71.0 ACCESS?ASSESSMENT ??Access?Type:?AVFistula ??Access?SubType:?Standard ??Access?Status:?Active?(In?Use)?-?10/19/2020 ??Access?Location:?Left?Forearm ??Created:?--/--/---- Flow ??08/08/2022:?1016 ??07/11/2022:?931 ??06/18/2022:?970 ANEMIA?ASSESSMENT HGB,?TSAT ??09/08/2022:?11.0,?- ??09/01/2022:?12.0,?- ??08/25/2022:?10.9,?24.0 ?? Ferritin ??08/25/2022:?637.0 ??06/23/2022:?578.0 ??05/12/2022:?742.0 Mircera,?IVP?(mcg) ??08/22/2022:?150 ??08/15/2022:?100 ??08/01/2022:?100 Iron?Sucrose?(Venofer)?(mg) ??09/08/2022:?100 ??09/05/2022:?100 ??09/03/2022:?100 BMM?ASSESSMENT Phosphorus,?Calcium ??08/25/2022:?2.1,?9.6 ??07/28/2022:?2.9,?9.0 ??06/23/2022:?3.2,?9.5 ?? PTH,?Intact ??08/25/2022:?116.0 ??07/28/2022:?212.0 ??06/23/2022:?176.0 Doxercalciferol?(Hectorol)?(mcg) ??09/08/2022:?1 ??09/05/2022:?1 ??09/03/2022:?1 NUTRITION?ASSESSMENT Albumin,?Potassium ??09/08/2022:?-,?4.1 ??09/01/2022:?-,?4.3 ??08/25/2022:?3.9,?4.3 ?? eNPCR ??09/08/2022:?0.61 ??08/06/2022:?0.7 ??07/21/2022:?0.6 DIAGNOSIS Chief?Complaint:?N18.6?End?stage?renal?disease Patient?data?updated?09/10/2022?at?3:40?PM Signed?By:?Sj,?Arnie,???on?09/10/2022?3:40:47?PM END OF DOCUMENT
--- OUTSIDE RECORDS SUMMARY | 2022-12-12 15:59 | XMS_ITS ---
Author Name Digna Batresanne Address [address] [place] [address] Phone [phone] Organization [facility] e, NA DOCUMENT DISCLAIMER Multiple document versions may exist, please be sure you review the latest version. The information in the [facility] Progress Note Document represents a providers documented clinical note containing certain health and medical information. It may not contain the complete medical history for the patient and should be independently verified. The represented time in the document is Eastern Time PROVIDER ROUNDING NOTE BASIC Patient:?Korey?Lucyjackiemarcella,?1940,?82y,?M Dialysis?Location:?[place] Attending?Service Dispatcher:?Jessica Service?Date:?09/08/2022 Service?Provider:?Lilian?Gisel,?PIPELINE OPERATOR I?met?face?to?face?with?the?patient?today. 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?09/03/2022:?152/72 ??09/01/2022:?164/73 Tx?Duration ??09/05/2022:?3:31 ??09/03/2022:?3:30 ??09/01/2022:?3:33 Missed?Treatments 0?-?last?30?days 0?-?last?60?days FLUID?ASSESSMENT EDW?(kg) ??09/05/2022:?99.5 ??09/03/2022:?99.5 ??09/01/2022:?99.5 Weight?Pre?(kg) ??09/05/2022:?99.2 ??09/03/2022:?100.3 ??09/01/2022:?100.6 Weight?Post?(kg) ??09/05/2022:?98.9 ??09/03/2022:?99.5 ??09/01/2022:?98.8 PWV?(kg) ??09/05/2022:?-0.6 ??09/03/2022:?0.0 ??09/01/2022:?-0.7 UF?Rate?(mL/kg/hr) ??09/05/2022:?0.9 ??09/03/2022:?2.3 ??09/01/2022:?5.1 ADEQUACY?ASSESSMENT spKt/V,?URR ??08/06/2022:?1.4,?72.0 ??07/21/2022:?1.42,?71.0 ??06/09/2022:?1.37,?70.0 ACCESS?ASSESSMENT ??Access?Type:?AVFistula ??Access?SubType:?Standard ??Access?Status:?Active?(In?Use)?-?10/19/2020 ??Access?Location:?Left?Forearm ??Created:?--/--/---- Flow ??08/08/2022:?1016 ??07/11/2022:?931 ??06/18/2022:?970 ANEMIA?ASSESSMENT HGB,?TSAT ??09/01/2022:?12.0,?- ??08/25/2022:?10.9,?24.0 ??08/18/2022:?9.5,?- ?? Ferritin ??08/25/2022:?637.0 ??06/23/2022:?578.0 ??05/12/2022:?742.0 Mircera,?IVP?(mcg) ??08/22/2022:?150 ??08/15/2022:?100 ??08/01/2022:?100 Iron?Sucrose?(Venofer)?(mg) ??09/05/2022:?100 ??09/03/2022:?100 ??09/01/2022:?100 BMM?ASSESSMENT Phosphorus,?Calcium ??08/25/2022:?2.1,?9.6 ??07/28/2022:?2.9,?9.0 ??06/23/2022:?3.2,?9.5 ?? PTH,?Intact ??08/25/2022:?116.0 ??07/28/2022:?212.0 ??06/23/2022:?176.0 Doxercalciferol?(Hectorol)?(mcg) ??09/05/2022:?1 ??09/03/2022:?1 ??09/01/2022:?1 NUTRITION?ASSESSMENT Albumin,?Potassium ??09/01/2022:?-,?4.3 ??08/25/2022:?3.9,?4.3 ??08/18/2022:?-,?3.9 ?? eNPCR ??08/06/2022:?0.7 ??07/21/2022:?0.6 ??06/09/2022:?0.68 DIAGNOSIS Chief?Complaint:?N18.6?End?stage?renal?disease Patient?data?updated?09/08/2022?at?6:36?PM Signed?By:?Gisel,?Lilian,?PIPELINE OPERATOR??on?09/08/2022?6:36:47 PM END OF DOCUMENT
--- OUTSIDE RECORDS SUMMARY | 2022-12-12 15:59 | XMS_ITS ---
Author Name Arnie Gustafson Address [address] [place] [address] Phone [phone] Organization [facility] e, NA DOCUMENT DISCLAIMER Multiple document versions may exist, please be sure you review the latest version. The information in the [facility] Progress Note Document represents a providers documented clinical note containing certain health and medical information. It may not contain the complete medical history for the patient and should be independently verified. The represented time in the document is Eastern Time PROVIDER ROUNDING NOTE BASIC Provider?Rounding?Note?Basic?-?Korey?Codie?-?Chart #:?[id number] Patient?was?seen?on:?07/23/2022 Was?Patient?seen?today?:?07/23/2022 Method?of?Interaction:?Face?to?face Date?of?Interaction:?07/23/2022 Patient?is?stable Patient?issues?include: 136/73 Prior?Treatment:?07/21/2022? Dialyzer:?180NRe?Optiflux? Dialysate:?2.0?K,?2.5 Ca,?1.0?Mg,?100?Dextrose?(G2251)? Actual?Time:?03:35?Prescribed?Time:?3:30? Avg?BFR:?500?Avg?DFR:?510? Wt?Gain?(kg):?2.80?EDW?(kg):?101.50? post?Wt?(kg):? VITALS ?Date:?Temperature:?Pulse:?Respirations:?BP?(Sitting):?BP?(Standing):?Weight:? HOME?MEDICATIONS ?Milo?Low?Dose?Aspirin?(aspirin)??81?mg,?oral,?1 tablet?once?a?day ?Dialyvite?(b?complex?33-txrgb-u-biot-zinc)??0-685-651-50?mg-mg-m cg-mg,?oral,?1?tablet?once?a?day ?Lantus?U-100?Insulin?(insulin?glargine)??100?unit/mL,? subQ,?18?unit?every?evening ?Levo-T?(levothyroxine)??175?mcg,?oral,?1?tablet?once a?day ?Novolog?Flexpen?U-100?Insulin?(insulin?aspart?u-100)?? 100?unit/mL?(3?mL),?subQ,?5?unit?three?times?a?day ?pravastatin?(pravastatin)??10?mg,?oral,?1?tablet?once a?day ?Protonix?(pantoprazole)??40?mg,?oral,?1?tablet?once a?day ?Renvela?(sevelamer?carbonate)??800?mg,?oral,?1?tablet as?directed ?Singulair?(montelukast)??10?mg,?oral,?1?tablet?once a?day ?Spiriva?Respimat?(tiotropium?bromide)??2.5?mcg/actuation,?i nhl,?1?puff?once?a?day ?Wixela?Inhub?(fluticasone?propion-salmeterol)??250-50?mcg/dose,& #160;inhl,?1?puff?twice?a?day Arnie?Sj,? END OF DOCUMENT
--- OUTSIDE RECORDS SUMMARY | 2022-12-12 15:59 | XMS_ITS ---
Author Name Arnie Gustafson Address [address] [place] [address] Phone [phone] Organization [facility] e, NA DOCUMENT DISCLAIMER Multiple document versions may exist, please be sure you review the latest version. The information in the [facility] Progress Note Document represents a providers documented clinical note containing certain health and medical information. It may not contain the complete medical history for the patient and should be independently verified. The represented time in the document is Eastern Time PROVIDER ROUNDING NOTE COMP Provider?Rounding?Note?Comp?-?Korey?Codie?-?Chart?#:?[id number] Patient?was?seen?on:?09/17/2022 Was?Patient?seen?today?:?09/17/2022 Method?of?Interaction:?Face?to?face Date?of?Interaction:?09/17/2022 Patient?is?stable Patient?issues?include: 139/67 Prior?Treatment:?09/15/2022? Dialyzer:?180NRe?Optiflux? Dialysate:?3.0?K,?2.5 Ca,?1.0?Mg,?100?Dextrose?(G3251)? Actual?Time:?03:30?Prescribed?Time:?3:30? Avg?BFR:?440?Avg?DFR:?500? Wt?Gain?(kg):?2.40?EDW?(kg):?99.50? post?Wt?(kg):? increase?[id number] VITALS ?Date:?Temperature:?Pulse:?Respirations:?BP?(Sitting):?BP?(Standing):?Weight:? Volume?Management?Comments ADEQUACY ?spKt/V?eKdrt/V?OLC?(Del)?spKtv?1.44?09/08/22 ???1.24 ?09/08/22 ???1.22?09/15/22 ???1.40?08/06/22 ???1.20 ?08/06/22 ???1.31?09/12/22 ???1.42?07/21/22 ???1.22 ?07/21/22 ???1.31?09/10/22 ?URR?Potassium,?Serum?&#160 ;?Bicarbonate?Creatinine?%?mEq/L?mEq/L?&#16 0;?mg/dL ?71?09/08/22 ?? 3.9?09/15/22 ???24?09/15/22 ???10.07? 09/15/22 ???72?08/06/22 ?? 4.1?09/08/22 ???27?08/25/22 ???9.36?08/25/22 ???71?07/21/22 ?? 4.3?09/01/22 ???25?07/28/22 ???9.35?07/28/22 ?-?Adequacy?parameters?reviewed? Adequacy ?-?Adequacy?target?met?Sitting?BP?Pre?Sitting BP?Post?Standing?BP?Post?158?/?74??09/15/22?140?/?74??09/15/22?128?/?57??09/15/22?151?/?72??09/12/22?166?/?80??09/12/22?147?/?67??09/12/22?168?/?85??09/10/22?152?/?78??09/10/22?162?/?76??09/10/22? Blood?Pressure ?-?Blood?pressure?controlled? Fluid?Status ?-?Fluid?status?acceptable? Interdialytic?Weight?Gain ?-?Interdialytic?weight?gain?acceptable? Prescription?Compliance ?-?Prescription?compliance?acceptable? ?-?Potassium?controlled? VASCULAR?ACCESS ?Type?Exit?Site?&#1 60;??Status?Access?ID?AVFistula-Standard?Forearm-Left?&#160 ;?Active?(In?Use)?[id number]? Access?Flows ??705mL?per?min?09/10/22 ??1016mL?per?min?08/08/22 ??931mL?per?min?07/11/22 ??-?Vascular?access?reviewed? ??-?Current?access?is?functioning?well.? ANEMIA ?HGB? Transferrin?Sat.?(Calc) ?Ferritin?g/dL?%?ng/m L?11.2?09/15/22? ??34?09/15/22?673?09/15/22? ??11.0?09/08/22? ??24?08/25/22?637?08/25/22? ??12.0?09/01/22? ??15?07/28/22?578?06/23/22? Erythropoietin-Stimulating?Agents?(MISTY)?Administrations ??100?mcg?Mircera?09/12/22 ??150?mcg?Mircera?08/22/22 ??100?mcg?Mircera?08/15/22 IV?Iron?Administrations ??100?mg?Venofer?09/15/22 ??100?mg?Venofer?09/12/22 ??100?mg?Venofer?09/10/22 ?-?Anemia?reviewed? ?-?Anemia?targets?met? Mircera?per?protocol BONE?AND?MINERAL?METABOLISM ?Calcium,?Total?Calcium,?Corrected?Phosphorous? &#160 ;?PTH-Intact,?Plasma?mg/dL?mg/dL?mg/dL?pg/mL?8.9?09/15/22? ??9.2?09/15/22? ??2.8?&#16 0;???09/15/22? ??223?09/15/22? ??9.6?08/25/22? ??9.7?08/25/22? ??2.1?&#16 0;???08/25/22? ??116?08/25/22? ??9.0?07/28/22? ??9.2?07/28/22? ??2.9?&#16 0;???07/28/22? ??212?07/28/22? Vitamin?D?25?Hydroxy ??56.6?06/23/22 ??57.4?05/12/22 ??56.0?06/18/21 Vitamin?D?Analogue?Administrations ??1?mcg?Doxercalcifer?09/15/22 ??1?mcg?Doxercalcifer?09/12/22 ??1?mcg?Doxercalcifer?09/10/22 ?-?Bone?and?mineral?metabolism?parameters?reviewed? ?-?Calcium?controlled? ?-?Phosphorus?controlled? PTH ?-?PTH?within?target? decrease?hectoral?to?1 NUTRITION ?Albumin?eNPCR?g/dL?g/kg/day?3.6?09/15/22? ??0.61 ?09/08/22? ??3.9?08/25/22? ??0.70 ?08/06/22? ??3.7?07/28/22? ??0.60 ?07/21/22? ?-?Nutrition?reviewed? ?-?Patient?taking?protein?supplements? HOME?MEDICATIONS ?Milo?Low?Dose?Aspirin?(aspirin)??81?mg,?oral,?1 tablet?once?a?day ?Dialyvite?(b?complex?80-geidt-a-biot-zinc)??3-289-091-50?mg-mg-m cg-mg,?oral,?1?tablet?once?a?day ?Lantus?U-100?Insulin?(insulin?glargine)??100?unit/mL,? subQ,?18?unit?every?evening ?Levo-T?(levothyroxine)??175?mcg,?oral,?1?tablet?once a?day ?Novolog?Flexpen?U-100?Insulin?(insulin?aspart?u-100)?? 100?unit/mL?(3?mL),?subQ,?5?unit?three?times?a?day ?pravastatin?(pravastatin)??10?mg,?oral,?1?tablet?once a?day ?Protonix?(pantoprazole)??40?mg,?oral,?1?tablet?once a?day ?Renvela?(sevelamer?carbonate)??800?mg,?oral,?1?tablet as?directed ?Singulair?(montelukast)??10?mg,?oral,?1?tablet?once a?day ?Spiriva?Respimat?(tiotropium?bromide)??2.5?mcg/actuation,?i nhl,?1?puff?once?a?day ?Wixela?Inhub?(fluticasone?propion-salmeterol)??250-50?mcg/dose,& #160;inhl,?1?puff?twice?a?day EXAM ?-?Exam?not?performed? ?-?Vital?signs?reviewed? INTEREST?AND?ELIGIBILITY?(If?changes?are?made,?Please?notify?SW?below) ?Date?of?discussion?from?transplant?assessment:?08/11/2022 ?Patient?already?on?transplant?list??No Arnie?Sj,? END OF DOCUMENT
--- OUTSIDE RECORDS SUMMARY | 2022-12-12 15:59 | XMS_ITS ---
Author Name Arnie Gustafson Address [address] [place] [address] Phone [phone] Organization [facility] e, NA DOCUMENT DISCLAIMER Multiple document versions may exist, please be sure you review the latest version. The information in the [facility] Progress Note Document represents a providers documented clinical note containing certain health and medical information. It may not contain the complete medical history for the patient and should be independently verified. The represented time in the document is Eastern Time PROVIDER ROUNDING NOTE COMP Provider?Rounding?Note?Comp?-?Korey?Codie?-?Chart?#:?[id number] Patient?was?seen?on:?08/27/2022 Was?Patient?seen?today?:?08/27/2022 Method?of?Interaction:?Face?to?face Date?of?Interaction:?08/27/2022 Patient?is?stable Patient?issues?include: 156/76 Prior?Treatment:?08/25/2022? Dialyzer:?180NRe?Optiflux? Dialysate:?3.0?K,?2.5 Ca,?1.0?Mg,?100?Dextrose?(G3251)? Actual?Time:?03:31?Prescribed?Time:?3:30? Avg?BFR:?450?Avg?DFR:?500? Wt?Gain?(kg):?1.20?EDW?(kg):?100.00? post?Wt?(kg):? increase?[id number] VITALS ?Date:?Temperature:?Pulse:?Respirations:?BP?(Sitting):?BP?(Standing):?Weight:? Volume?Management?Comments ADEQUACY ?spKt/V?eKdrt/V?OLC?(Del)?spKtv?1.40?08/06/22 ???1.20 ?08/06/22 ???1.08?08/25/22 ???1.42?07/21/22 ???1.22 ?07/21/22 ???1.46?08/22/22 ???1.37?06/09/22 ???1.17 ?06/09/22 ???2.19?08/20/22 ?URR?Potassium,?Serum?&#160 ;?Bicarbonate?Creatinine?%?mEq/L?mEq/L?&#16 0;?mg/dL ?72?08/06/22 ?? 4.3?08/25/22 ???27?08/25/22 ???9.36?08/25/22 ???71?07/21/22 ?? 3.9?08/18/22 ???25?07/28/22 ???9.35?07/28/22 ???70?06/09/22 ?? 4.2?08/11/22 ???30?06/23/22 ???10.47? 06/23/22 ?-?Adequacy?parameters?reviewed? Adequacy ?-?Adequacy?target?met?Sitting?BP?Pre?Sitting BP?Post?Standing?BP?Post?145?/?80??08/25/22?132?/?70??08/25/22?137?/?72??08/25/22?118?/?60??08/22/22?143?/?66??08/22/22?148?/?88??08/22/22?155?/?74??08/20/22?122?/?66??08/20/22?109?/?55??08/20/22? Blood?Pressure ?-?Blood?pressure?controlled? Fluid?Status ?-?Fluid?status?acceptable? Interdialytic?Weight?Gain ?-?Interdialytic?weight?gain?acceptable? Prescription?Compliance ?-?Prescription?compliance?acceptable? ?-?Potassium?controlled? VASCULAR?ACCESS ?Type?Exit?Site?&#1 60;??Status?Access?ID?AVFistula-Standard?Forearm-Left?&#160 ;?Active?(In?Use)?[id number]? Access?Flows ??1016mL?per?min?08/08/22 ??931mL?per?min?07/11/22 ??970mL?per?min?06/18/22 ??-?Vascular?access?reviewed? ??-?Current?access?is?functioning?well.? ANEMIA ?HGB? Transferrin?Sat.?(Calc) ?Ferritin?g/dL?%?ng/m L?10.9?08/25/22? ??24?08/25/22?637?08/25/22? ??9.5?08/18/22? ??15?07/28/22?578??&#160 ;?06/23/22? ??10.4?08/11/22? ??34?06/23/22?742?05/12/22? Erythropoietin-Stimulating?Agents?(MISTY)?Administrations ??150?mcg?Mircera?08/22/22 ??100?mcg?Mircera?08/15/22 ??100?mcg?Mircera?08/01/22 IV?Iron?Administrations ??50?mg?Venofer?08/25/22 ??100?mg?Venofer?08/22/22 ??100?mg?Venofer?08/20/22 ?-?Anemia?reviewed? ?-?MISTY?adjusted?per?protocol? Mircera?per?protocol BONE?AND?MINERAL?METABOLISM ?Calcium,?Total?Calcium,?Corrected?Phosphorous? &#160 ;?PTH-Intact,?Plasma?mg/dL?mg/dL?mg/dL?pg/mL?9.6?08/25/22? ??9.7?08/25/22? ??2.1?&#16 0;???08/25/22? ??116?08/25/22? ??9.0?07/28/22? ??9.2?07/28/22? ??2.9?&#16 0;???07/28/22? ??212?07/28/22? ??9.5?06/23/22? ??9.7?06/23/22? ??3.2?&#16 0;???06/23/22? ??176?06/23/22? Vitamin?D?25?Hydroxy ??56.6?06/23/22 ??57.4?05/12/22 ??56.0?06/18/21 Vitamin?D?Analogue?Administrations ??2?mcg?Doxercalcifer?08/25/22 ??2?mcg?Doxercalcifer?08/22/22 ??2?mcg?Doxercalcifer?08/20/22 ?-?Bone?and?mineral?metabolism?parameters?reviewed? ?-?Calcium?controlled? ?-?Phosphorus?controlled? PTH ?-?PTH?within?target? decrease?hectoral?to?1 NUTRITION ?Albumin?eNPCR?g/dL?g/kg/day?3.9?08/25/22? ??0.70 ?08/06/22? ??3.7?07/28/22? ??0.60 ?07/21/22? ??3.8?06/23/22? ??0.68 ?06/09/22? ?-?Nutrition?reviewed? HOME?MEDICATIONS ?Milo?Low?Dose?Aspirin?(aspirin)??81?mg,?oral,?1 tablet?once?a?day ?Dialyvite?(b?complex?35-ovask-e-biot-zinc)??1-266-501-50?mg-mg-m cg-mg,?oral,?1?tablet?once?a?day ?Lantus?U-100?Insulin?(insulin?glargine)??100?unit/mL,? subQ,?18?unit?every?evening ?Levo-T?(levothyroxine)??175?mcg,?oral,?1?tablet?once a?day ?Novolog?Flexpen?U-100?Insulin?(insulin?aspart?u-100)?? 100?unit/mL?(3?mL),?subQ,?5?unit?three?times?a?day ?pravastatin?(pravastatin)??10?mg,?oral,?1?tablet?once a?day ?Protonix?(pantoprazole)??40?mg,?oral,?1?tablet?once a?day ?Renvela?(sevelamer?carbonate)??800?mg,?oral,?1?tablet as?directed ?Singulair?(montelukast)??10?mg,?oral,?1?tablet?once a?day ?Spiriva?Respimat?(tiotropium?bromide)??2.5?mcg/actuation,?i nhl,?1?puff?once?a?day ?Wixela?Inhub?(fluticasone?propion-salmeterol)??250-50?mcg/dose,& #160;inhl,?1?puff?twice?a?day EXAM ?-?Exam?not?performed? ?-?Vital?signs?reviewed? INTEREST?AND?ELIGIBILITY?(If?changes?are?made,?Please?notify?SW?below) ?Date?of?discussion?from?transplant?assessment:?08/11/2022 ?Patient?already?on?transplant?list??No Arnie?Sj,? END OF DOCUMENT
--- OUTSIDE RECORDS SUMMARY | 2022-12-12 15:59 | XMS_ITS ---
Author Name Sj Arnie Address [address] [place] [address] Phone [phone] Organization [facility] e, NA DOCUMENT DISCLAIMER Multiple document versions may exist, please be sure you review the latest version. The information in the [facility] Progress Note Document represents a providers documented clinical note containing certain health and medical information. It may not contain the complete medical history for the patient and should be independently verified. The represented time in the document is Eastern Time PROVIDER ROUNDING NOTE BASIC Patient:?Korey?Codie,?1940,?82y,?M Dialysis?Location:?[facility] Attending?Teacher Aide Clerical:?Jessica Service?Date:?09/03/2022 Service?Provider:?Arnie?Sj,? I?met?face?to?face?with?the?patient?today. 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;with?diabetic?chronic?kidney?disease DIALYSIS?PRESCRIPTION ??IHD?3x?Week?Start?date:?08/29/22 ??Dialyzer:?180NRe?Optiflux ??BFR:?500 ??DFR:?Manual?500 ??Potassium:?3.0 ??Sodium:?138 ??EDW:?99.5 ??Duration:?3:30 ??Calcium:?2.5 ??Bicarb:?32 ??Rx?updated?on:?08/28/2022 TREATMENT?ASSESSMENT BP?Stand?Pre ??09/01/2022:?137/71 ??08/29/2022:?164/94 ??08/27/2022:?150/66 BP?Sit?Pre ??09/01/2022:?156/75 ??08/29/2022:?172/88 ??08/27/2022:?161/76 BP?Stand?Post ??09/01/2022:?147/60 ??08/29/2022:?156/74 ??08/27/2022:?142/72 BP?Sit?Post ??09/01/2022:?164/73 ??08/29/2022:?159/78 ??08/27/2022:?157/74 Tx?Duration ??09/01/2022:?3:33 ??08/29/2022:?3:31 ??08/27/2022:?3:30 Missed?Treatments 0?-?last?30?days 0?-?last?60?days FLUID?ASSESSMENT EDW?(kg) ??09/01/2022:?99.5 ??08/29/2022:?99.5 ??08/27/2022:?100.0 Weight?Pre?(kg) ??09/01/2022:?100.6 ??08/29/2022:?101.3 ??08/27/2022:?100.3 Weight?Post?(kg) ??09/01/2022:?98.8 ??08/29/2022:?98.9 ??08/27/2022:?99.3 PWV?(kg) ??09/01/2022:?-0.7 ??08/29/2022:?-0.6 ??08/27/2022:?-0.7 UF?Rate?(mL/kg/hr) ??09/01/2022:?5.1 ??08/29/2022:?6.9 ??08/27/2022:?2.9 ADEQUACY?ASSESSMENT spKt/V,?URR ??08/06/2022:?1.4,?72.0 ??07/21/2022:?1.42,?71.0 ??06/09/2022:?1.37,?70.0 ACCESS?ASSESSMENT ??Access?Type:?AVFistula ??Access?SubType:?Standard ??Access?Status:?Active?(In?Use)?-?10/19/2020 ??Access?Location:?Left?Forearm ??Created:?--/--/---- Flow ??08/08/2022:?1016 ??07/11/2022:?931 ??06/18/2022:?970 ANEMIA?ASSESSMENT HGB,?TSAT ??09/01/2022:?12.0,?- ??08/25/2022:?10.9,?24.0 ??08/18/2022:?9.5,?- ?? Ferritin ??08/25/2022:?637.0 ??06/23/2022:?578.0 ??05/12/2022:?742.0 Mircera,?IVP?(mcg) ??08/22/2022:?150 ??08/15/2022:?100 ??08/01/2022:?100 Iron?Sucrose?(Venofer)?(mg) ??09/01/2022:?100 ??08/29/2022:?100 ??08/25/2022:?50 BMM?ASSESSMENT Phosphorus,?Calcium ??08/25/2022:?2.1,?9.6 ??07/28/2022:?2.9,?9.0 ??06/23/2022:?3.2,?9.5 ?? PTH,?Intact ??08/25/2022:?116.0 ??07/28/2022:?212.0 ??06/23/2022:?176.0 Doxercalciferol?(Hectorol)?(mcg) ??09/01/2022:?1 ??08/29/2022:?1 ??08/27/2022:?2 NUTRITION?ASSESSMENT Albumin,?Potassium ??09/01/2022:?-,?4.3 ??08/25/2022:?3.9,?4.3 ??08/18/2022:?-,?3.9 ?? eNPCR ??08/06/2022:?0.7 ??07/21/2022:?0.6 ??06/09/2022:?0.68 DIAGNOSIS Chief?Complaint:?N18.6?End?stage?renal?disease Patient?data?updated?09/03/2022?at?4:22?PM Signed?By:?Sj,?Arnie,???on?09/03/2022?4:22:51?PM END OF DOCUMENT
--- OUTSIDE RECORDS SUMMARY | 2022-12-12 15:59 | XMS_ITS ---
Author Name Sj Arnie Address [address] [place] [address] Phone [phone] Organization [facility] e, NA DOCUMENT DISCLAIMER Multiple document versions may exist, please be sure you review the latest version. The information in the [facility] Progress Note Document represents a providers documented clinical note containing certain health and medical information. It may not contain the complete medical history for the patient and should be independently verified. The represented time in the document is Eastern Time PROVIDER ROUNDING NOTE BASIC Patient:?Korey?Codie,?1940,?82y,?M Dialysis?Location:?[facility] Attending?Reproductive Endocrinologist:?Jessica Service?Date:?07/09/2022 Service?Provider:?Arnie?Sj,? I?saw?the?patient?remotely?today?for?a?telehealth?visit ?using?an?audiovisual?platform?during?the?COVID-19?PHE. 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;with?diabetic?chronic?kidney?disease DIALYSIS?PRESCRIPTION ??IHD?3x?Week?Start?date:?06/30/22 ??Dialyzer:?180NRe?Optiflux ??BFR:?500 ??DFR:?Manual?500 ??Potassium:?3.0 ??Sodium:?138 ??EDW:?101.5 ??Duration:?3:30 ??Calcium:?2.5 ??Bicarb:?32 ??Rx?updated?on:?06/28/2022 TREATMENT?ASSESSMENT BP?Stand?Pre ??07/07/2022:?110/59 ??07/04/2022:?119/56 ??07/02/2022:?110/56 BP?Sit?Pre ??07/07/2022:?158/71 ??07/04/2022:?148/56 ??07/02/2022:?131/56 BP?Stand?Post ??07/07/2022:?124/55 ??07/04/2022:?109/60 ??07/02/2022:?117/56 BP?Sit?Post ??07/07/2022:?134/69 ??07/04/2022:?119/64 ??07/02/2022:?142/70 Tx?Duration ??07/07/2022:?3:32 ??07/04/2022:?3:30 ??07/02/2022:?3:33 Missed?Treatments 0?-?last?30?days 0?-?last?60?days FLUID?ASSESSMENT EDW?(kg) ??07/07/2022:?101.5 ??07/04/2022:?101.5 ??07/02/2022:?101.5 Weight?Pre?(kg) ??07/07/2022:?103.8 ??07/04/2022:?103.2 ??07/02/2022:?101.9 Weight?Post?(kg) ??07/07/2022:?101.2 ??07/04/2022:?101.1 ??07/02/2022:?100.9 PWV?(kg) ??07/07/2022:?-0.3 ??07/04/2022:?-0.4 ??07/02/2022:?-0.6 UF?Rate?(mL/kg/hr) ??07/07/2022:?7.3 ??07/04/2022:?5.9 ??07/02/2022:?2.8 ADEQUACY?ASSESSMENT spKt/V,?URR ??06/09/2022:?1.37,?70.0 ??05/26/2022:?1.48,?71.0 ??05/19/2022:?1.23,?65.0 ACCESS?ASSESSMENT ??Access?Type:?AVFistula ??Access?SubType:?Standard ??Access?Status:?Active?(In?Use)?-?10/19/2020 ??Access?Location:?Left?Forearm ??Created:?--/--/---- Flow ??06/18/2022:?970 ??06/11/2022:?972 ??03/21/2022:?883 ANEMIA?ASSESSMENT HGB,?TSAT ??07/02/2022:?9.6,?- ??06/30/2022:?8.9,?- ??06/23/2022:?10.0,?34.0 ?? Ferritin ??06/23/2022:?578.0 ??05/12/2022:?742.0 ??03/12/2022:?965.0 Mircera,?IVP?(mcg) ??07/04/2022:?75 ??06/27/2022:?60 ??06/13/2022:?60 Iron?Sucrose?(Venofer)?(mg) ??07/07/2022:?50 ??05/09/2022:?50 ??05/02/2022:?50 BMM?ASSESSMENT Phosphorus,?Calcium ??06/23/2022:?3.2,?9.5 ??05/12/2022:?2.6,?9.0 ??04/09/2022:?6.1,?9.5 ?? PTH,?Intact ??06/23/2022:?176.0 ??05/12/2022:?274.0 ??03/12/2022:?400.0 Doxercalciferol?(Hectorol)?(mcg) ??07/07/2022:?2 ??07/04/2022:?2 ??06/30/2022:?2 NUTRITION?ASSESSMENT Albumin,?Potassium ??06/30/2022:?-,?4.0 ??06/23/2022:?3.8,?4.4 ??06/09/2022:?-,?4.5 ?? eNPCR ??06/09/2022:?0.68 ??05/26/2022:?0.76 ??05/19/2022:?0.8 DIAGNOSIS Chief?Complaint:?N18.6?End?stage?renal?disease Patient?data?updated?07/09/2022?at?4:43?PM Signed?By:?Sj,?Arnie,???on?07/09/2022?4:43:05?PM END OF DOCUMENT
--- OUTSIDE RECORDS SUMMARY | 2022-12-12 15:59 | XMS_ITS ---
Author Name Digna Batresanne Address [address] [place] [address] Phone [phone] Organization [facility] e, NA DOCUMENT DISCLAIMER Multiple document versions may exist, please be sure you review the latest version. The information in the [facility] Progress Note Document represents a providers documented clinical note containing certain health and medical information. It may not contain the complete medical history for the patient and should be independently verified. The represented time in the document is Eastern Time PROVIDER ROUNDING NOTE BASIC Patient:?Korey?Codie,?1940,?82y,?M Dialysis?Location:?[place] Attending?Field Manager:?Jessica Service?Date:?08/18/2022 Service?Provider:?Lilian?Gisel,?FORM GRADER I?met?face?to?face?with?the?patient?today. 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;with?diabetic?chronic?kidney?disease Comments:?Patient?seen?at?hd?no?complaints?stable??decrease?Edw?100 DIALYSIS?PRESCRIPTION ??IHD?3x?Week?Start?date:?08/13/22 ??Dialyzer:?180NRe?Optiflux ??BFR:?500 ??DFR:?Manual?500 ??Potassium:?3.0 ??Sodium:?138 ??EDW:?101 ??Duration:?3:30 ??Calcium:?2.5 ??Bicarb:?32 ??Rx?updated?on:?08/13/2022 TREATMENT?ASSESSMENT BP?Stand?Pre ??08/15/2022:?128/62 ??08/13/2022:?127/55 BP?Sit?Pre ??08/15/2022:?172/79 ??08/13/2022:?135/59 ??08/11/2022:?127/63 BP?Stand?Post ??08/15/2022:?137/60 ??08/13/2022:?126/73 ??08/11/2022:?122/63 BP?Sit?Post ??08/15/2022:?140/69 ??08/13/2022:?158/78 ??08/11/2022:?123/60 Tx?Duration ??08/15/2022:?3:30 ??08/13/2022:?3:34 ??08/11/2022:?3:33 Missed?Treatments 0?-?last?30?days 0?-?last?60?days FLUID?ASSESSMENT EDW?(kg) ??08/15/2022:?101.0 ??08/13/2022:?101.0 ??08/11/2022:?101.0 Weight?Pre?(kg) ??08/15/2022:?102.1 ??08/13/2022:?101.6 ??08/11/2022:?103.4 Weight?Post?(kg) ??08/15/2022:?99.3 ??08/13/2022:?100.0 ??08/11/2022:?100.4 PWV?(kg) ??08/15/2022:?-1.7 ??08/13/2022:?-1.0 ??08/11/2022:?-0.6 UF?Rate?(mL/kg/hr) ??08/15/2022:?8.1 ??08/13/2022:?4.5 ??08/11/2022:?8.4 ADEQUACY?ASSESSMENT spKt/V,?URR ??08/06/2022:?1.4,?72.0 ??07/21/2022:?1.42,?71.0 ??06/09/2022:?1.37,?70.0 ACCESS?ASSESSMENT ??Access?Type:?AVFistula ??Access?SubType:?Standard ??Access?Status:?Active?(In?Use)?-?10/19/2020 ??Access?Location:?Left?Forearm ??Created:?--/--/---- Flow ??08/08/2022:?1016 ??07/11/2022:?931 ??06/18/2022:?970 ANEMIA?ASSESSMENT HGB,?TSAT ??08/11/2022:?10.4,?- ??08/04/2022:?10.2,?- ??07/28/2022:?10.2,?15.0 ?? Ferritin ??06/23/2022:?578.0 ??05/12/2022:?742.0 ??03/12/2022:?965.0 Mircera,?IVP?(mcg) ??08/15/2022:?100 ??08/01/2022:?100 ??07/18/2022:?100 Iron?Sucrose?(Venofer)?(mg) ??08/15/2022:?100 ??08/13/2022:?100 ??08/11/2022:?100 BMM?ASSESSMENT Phosphorus,?Calcium ??07/28/2022:?2.9,?9.0 ??06/23/2022:?3.2,?9.5 ??05/12/2022:?2.6,?9.0 ?? PTH,?Intact ??07/28/2022:?212.0 ??06/23/2022:?176.0 ??05/12/2022:?274.0 Doxercalciferol?(Hectorol)?(mcg) ??08/15/2022:?2 ??08/13/2022:?2 ??08/11/2022:?2 NUTRITION?ASSESSMENT Potassium ??08/11/2022:?4.2 ??08/06/2022:?4.5 ??08/04/2022:?4.4 ?? eNPCR ??08/06/2022:?0.7 ??07/21/2022:?0.6 ??06/09/2022:?0.68 DIAGNOSIS Chief?Complaint:?N18.6?End?stage?renal?disease Patient?data?updated?08/18/2022?at?5:55?PM Signed?By:?Gisel,?Lilian,?FORM GRADER??on?08/18/2022?5:55:56 PM END OF DOCUMENT
--- OUTSIDE RECORDS SUMMARY | 2022-12-12 15:59 | XMS_ITS ---
Author Name GiselDigna rodriguesanne Address [address] [place] [address] Phone [phone] Organization [facility] e, NA DOCUMENT DISCLAIMER The information in the [facility] Dialysis Provider Note Document represents a providersdocumented clinical note containing certain health and medical information. It may not contain the complete medical history for the patient and should be independently verified. The represented time in the document is Eastern Time PROVIDER ROUNDING NOTE BASIC Patient:?Korey?Codie,?1940,?82y,?M Dialysis?Location:?[place] Attending?[employer] [place] Specialist:?Arnie?Sj Service?Date:?06/23/2022 Service?Provider:?Lilian?Gisel,?RELOCATION ASSOCIATE I?met?face?to?face?with?the?patient?today. 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06/16/2022:?122/61 Tx?Duration ??06/20/2022:?3:31 ??06/18/2022:?3:30 ??06/16/2022:?3:34 Missed?Treatments 0?-?last?30?days 0?-?last?60?days FLUID?ASSESSMENT EDW?(kg) ??06/20/2022:?101.0 ??06/18/2022:?101.0 ??06/16/2022:?101.0 Weight?Pre?(kg) ??06/20/2022:?103.2 ??06/18/2022:?104.2 ??06/16/2022:?105.2 Weight?Post?(kg) ??06/20/2022:?100.5 ??06/18/2022:?101.0 ??06/16/2022:?102.0 PWV?(kg) ??06/20/2022:?-0.5 ??06/18/2022:?0.0 ??06/16/2022:?1.0 UF?Rate?(mL/kg/hr) ??06/20/2022:?7.6 ??06/18/2022:?9.1 ??06/16/2022:?8.8 ADEQUACY?ASSESSMENT spKt/V,?URR ??06/09/2022:?1.37,?70.0 ??05/26/2022:?1.48,?71.0 ??05/19/2022:?1.23,?65.0 ACCESS?ASSESSMENT ??Access?Type:?AVFistula ??Access?SubType:?Standard ??Access?Status:?Active?(In?Use)?-?10/19/2020 ??Access?Location:?Left?Forearm ??Created:?--/--/---- Flow ??06/18/2022:?970 ??06/11/2022:?972 ??03/21/2022:?883 ANEMIA?ASSESSMENT HGB ??06/16/2022:?9.2 ??06/09/2022:?9.6 ??06/02/2022:?9.1 ?? Ferritin ??05/12/2022:?742.0 ??03/12/2022:?965.0 ??12/11/2021:?620.0 Mircera,?IVP?(mcg) ??06/13/2022:?60 ??05/30/2022:?50 ??05/16/2022:?50 Iron?Sucrose?(Venofer)?(mg) ??05/09/2022:?50 ??05/02/2022:?50 BMM?ASSESSMENT Phosphorus,?Calcium ??05/12/2022:?2.6,?9.0 ??04/09/2022:?6.1,?9.5 ??03/12/2022:?3.8,?9.1 ?? PTH,?Intact ??05/12/2022:?274.0 ??03/12/2022:?400.0 ??02/12/2022:?329.0 Doxercalciferol?(Hectorol)?(mcg) ??06/20/2022:?2 ??06/18/2022:?2 ??06/16/2022:?2 NUTRITION?ASSESSMENT Potassium ??06/09/2022:?4.5 ??05/26/2022:?4.5 ??05/19/2022:?4.1 ?? eNPCR ??06/09/2022:?0.68 ??05/26/2022:?0.76 ??05/19/2022:?0.8 DIAGNOSIS Chief?Complaint:?N18.6?End?stage?renal?disease Patient?data?updated?06/23/2022?at?5:59?PM Signed?By:?Gisel,?Lilian,?RELOCATION ASSOCIATE??on?06/23/2022?6:00:00 PM END OF DOCUMENT
--- OUTSIDE RECORDS SUMMARY | 2022-12-12 15:59 | XMS_ITS ---
Author Name Gisel, Lilian Address [address] [place] [address] Phone [phone] Organization [facility] e, NA DOCUMENT DISCLAIMER The information in the [facility] Dialysis Provider Note Document represents a providersdocumented clinical note containing certain health and medical information. It may not contain the complete medical history for the patient and should be independently verified. The represented time in the document is Eastern Time PROVIDER ROUNDING NOTE BASIC Patient:?Korey?Codie,?1940,?82y,?M Dialysis?[facility] Attending?Spring Machine Operator:?Arnie?Sj Service?Date:?06/09/2022 Service?Provider:?Lilian?Gisel,?ICER MACHINE OPERATOR I?met?face?to?face?with?the?patient?today. 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06/02/2022:?103/46 BP?Sit?Post ??06/06/2022:?118/59 ??06/04/2022:?100/46 ??06/02/2022:?127/51 Tx?Duration ??06/06/2022:?3:30 ??06/04/2022:?3:32 ??06/02/2022:?3:32 Missed?Treatments 0?-?last?30?days 0?-?last?60?days FLUID?ASSESSMENT EDW?(kg) ??06/06/2022:?101.0 ??06/04/2022:?99.5 ??06/02/2022:?99.5 Weight?Pre?(kg) ??06/06/2022:?102.1 ??06/04/2022:?102.9 ??06/02/2022:?104.3 Weight?Post?(kg) ??06/06/2022:?100.0 ??06/04/2022:?99.0 ??06/02/2022:?101.1 PWV?(kg) ??06/06/2022:?-1.0 ??06/04/2022:?-0.5 ??06/02/2022:?1.6 UF?Rate?(mL/kg/hr) ??06/06/2022:?6 ??06/04/2022:?11.1 ??06/02/2022:?9 ADEQUACY?ASSESSMENT spKt/V,?URR ??05/26/2022:?1.48,?71.0 ??05/19/2022:?1.23,?65.0 ??04/09/2022:?1.65,?76.0 ACCESS?ASSESSMENT ??Access?Type:?AVFistula ??Access?SubType:?Standard ??Access?Status:?Active?(In?Use)?-?10/19/2020 ??Access?Location:?Left?Forearm ??Created:?--/--/---- Flow ??03/21/2022:?883 ??11/15/2021:?955 ??09/07/2021:?1572 ANEMIA?ASSESSMENT HGB ??06/02/2022:?9.1 ??05/26/2022:?9.4 ??05/19/2022:?9.2 ?? Ferritin ??05/12/2022:?742.0 ??03/12/2022:?965.0 ??12/11/2021:?620.0 Mircera,?IVP?(mcg) ??05/30/2022:?50 ??05/16/2022:?50 ??05/09/2022:?30 Iron?Sucrose?(Venofer)?(mg) ??05/09/2022:?50 ??05/02/2022:?50 ??03/17/2022:?50 BMM?ASSESSMENT Phosphorus,?Calcium ??05/12/2022:?2.6,?9.0 ??04/09/2022:?6.1,?9.5 ??03/12/2022:?3.8,?9.1 ?? PTH,?Intact ??05/12/2022:?274.0 ??03/12/2022:?400.0 ??02/12/2022:?329.0 Doxercalciferol?(Hectorol)?(mcg) ??06/06/2022:?2 ??06/04/2022:?2 ??06/02/2022:?2 NUTRITION?ASSESSMENT Albumin,?Potassium ??05/26/2022:?-,?4.5 ??05/19/2022:?-,?4.1 ??05/12/2022:?3.7,?3.5 ?? eNPCR ??05/26/2022:?0.76 ??05/19/2022:?0.8 ??04/09/2022:?1.13 DIAGNOSIS Chief?Complaint:?N18.6?End?stage?renal?disease Patient?data?updated?06/09/2022?at?5:49?PM Signed?By:?Gisel,?Lilian,?ICER MACHINE OPERATOR??on?06/09/2022?5:50:02 PM END OF DOCUMENT
--- OUTSIDE RECORDS SUMMARY | 2022-12-12 15:59 | XMS_ITS ---
Author Name Sj Arnie Address [address] [place] [address] Phone [phone] Organization [facility] e, NA DOCUMENT DISCLAIMER Multiple document versions may exist, please be sure you review the latest version. The information in the [facility] Progress Note Document represents a providers documented clinical note containing certain health and medical information. It may not contain the complete medical history for the patient and should be independently verified. The represented time in the document is Eastern Time PROVIDER ROUNDING NOTE BASIC Patient:?Korey?Codie,?1940,?82y,?M Dialysis?Location:?[place] Attending?Car[employer]ation Equipment Tender:?Jessica Service?Date:?08/06/2022 Service?Provider:?Arnie?Sj,? I?met?face?to?face?with?the?patient?today. 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07/30/2022:?3:33 Missed?Treatments 0?-?last?30?days 0?-?last?60?days FLUID?ASSESSMENT EDW?(kg) ??08/04/2022:?101.0 ??08/01/2022:?101.0 ??07/30/2022:?101.5 Weight?Pre?(kg) ??08/04/2022:?103.6 ??08/01/2022:?102.9 ??07/30/2022:?101.8 Weight?Post?(kg) ??08/04/2022:?100.8 ??08/01/2022:?101.3 ??07/30/2022:?101.2 PWV?(kg) ??08/04/2022:?-0.2 ??08/01/2022:?0.3 ??07/30/2022:?-0.3 UF?Rate?(mL/kg/hr) ??08/04/2022:?7.9 ??08/01/2022:?4.4 ??07/30/2022:?1.7 ADEQUACY?ASSESSMENT spKt/V,?URR ??07/21/2022:?1.42,?71.0 ??06/09/2022:?1.37,?70.0 ??05/26/2022:?1.48,?71.0 ACCESS?ASSESSMENT ??Access?Type:?AVFistula ??Access?SubType:?Standard ??Access?Status:?Active?(In?Use)?-?10/19/2020 ??Access?Location:?Left?Forearm ??Created:?--/--/---- Flow ??07/11/2022:?931 ??06/18/2022:?970 ??06/11/2022:?972 ANEMIA?ASSESSMENT HGB,?TSAT ??08/04/2022:?10.2,?- ??07/28/2022:?10.2,?15.0 ??07/21/2022:?9.8,?- ?? Ferritin ??06/23/2022:?578.0 ??05/12/2022:?742.0 ??03/12/2022:?965.0 Mircera,?IVP?(mcg) ??08/01/2022:?100 ??07/18/2022:?100 ??07/04/2022:?75 Iron?Sucrose?(Venofer)?(mg) ??08/04/2022:?100 ??08/01/2022:?100 ??07/28/2022:?50 BMM?ASSESSMENT Phosphorus,?Calcium ??07/28/2022:?2.9,?9.0 ??06/23/2022:?3.2,?9.5 ??05/12/2022:?2.6,?9.0 ?? PTH,?Intact ??07/28/2022:?212.0 ??06/23/2022:?176.0 ??05/12/2022:?274.0 Doxercalciferol?(Hectorol)?(mcg) ??08/04/2022:?2 ??08/01/2022:?2 ??07/30/2022:?2 NUTRITION?ASSESSMENT Albumin,?Potassium ??08/04/2022:?-,?4.4 ??07/28/2022:?3.7,?4.2 ??07/14/2022:?-,?5.0 ?? eNPCR ??07/21/2022:?0.6 ??06/09/2022:?0.68 ??05/26/2022:?0.76 DIAGNOSIS Chief?Complaint:?N18.6?End?stage?renal?disease Patient?data?updated?08/06/2022?at?3:37?PM Signed?By:?Sj,?Arnie,???on?08/06/2022?3:37:35?PM END OF DOCUMENT
--- OUTSIDE RECORDS SUMMARY | 2022-12-12 15:59 | XMS_ITS ---
Author Name Gisel, Lilian Address [address] [place] [address] Phone [phone] Organization [facility] e, NA DOCUMENT DISCLAIMER The information in the [facility] Provider Note Document represents a providersdocumented clinical note containing certain health and medical information. It may not contain the complete medical history for the patient and should be independently verified. The represented time in the document is Eastern Time PROVIDER ROUNDING NOTE BASIC Patient:?Korey?Codie,?1940,?82y,?M Dialysis?Location:?[facility] Attending?Welder Fitter Gas:?Arnie?Sj Service?Date:?06/04/2022 Service?Provider:?Lilian?Gisel,?TELEMARKETING AGENT I?met?face?to?face?with?the?patient?today. 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?06/02/2022:?103/46 ??05/30/2022:?114/60 ??05/28/2022:?124/63 BP?Sit?Post ??06/02/2022:?127/51 ??05/30/2022:?111/54 ??05/28/2022:?118/66 Tx?Duration ??06/02/2022:?3:32 ??05/30/2022:?3:30 ??05/28/2022:?3:34 Missed?Treatments 0?-?last?30?days 0?-?last?60?days FLUID?ASSESSMENT EDW?(kg) ??06/02/2022:?99.5 ??05/30/2022:?99.5 ??05/28/2022:?99.5 Weight?Pre?(kg) ??06/02/2022:?104.3 ??05/30/2022:?103.2 ??05/28/2022:?102.1 Weight?Post?(kg) ??06/02/2022:?101.1 ??05/30/2022:?100.9 ??05/28/2022:?100.9 PWV?(kg) ??06/02/2022:?1.6 ??05/30/2022:?1.4 ??05/28/2022:?1.4 UF?Rate?(mL/kg/hr) ??06/02/2022:?9 ??05/30/2022:?6.5 ??05/28/2022:?3.3 ADEQUACY?ASSESSMENT spKt/V,?URR ??05/26/2022:?1.48,?71.0 ??05/19/2022:?1.23,?65.0 ??04/09/2022:?1.65,?76.0 ACCESS?ASSESSMENT ??Access?Type:?AVFistula ??Access?SubType:?Standard ??Access?Status:?Active?(In?Use)?-?10/19/2020 ??Access?Location:?Left?Forearm ??Created:?--/--/---- Flow ??03/21/2022:?883 ??11/15/2021:?955 ??09/07/2021:?1572 ANEMIA?ASSESSMENT HGB ??06/02/2022:?9.1 ??05/26/2022:?9.4 ??05/19/2022:?9.2 ?? Ferritin ??05/12/2022:?742.0 ??03/12/2022:?965.0 ??12/11/2021:?620.0 Mircera,?IVP?(mcg) ??05/30/2022:?50 ??05/16/2022:?50 ??05/09/2022:?30 Iron?Sucrose?(Venofer)?(mg) ??05/09/2022:?50 ??05/02/2022:?50 ??03/17/2022:?50 BMM?ASSESSMENT Phosphorus,?Calcium ??05/12/2022:?2.6,?9.0 ??04/09/2022:?6.1,?9.5 ??03/12/2022:?3.8,?9.1 ?? PTH,?Intact ??05/12/2022:?274.0 ??03/12/2022:?400.0 ??02/12/2022:?329.0 Doxercalciferol?(Hectorol)?(mcg) ??06/02/2022:?2 ??05/30/2022:?2 ??05/28/2022:?2 NUTRITION?ASSESSMENT Albumin,?Potassium ??05/26/2022:?-,?4.5 ??05/19/2022:?-,?4.1 ??05/12/2022:?3.7,?3.5 ?? eNPCR ??05/26/2022:?0.76 ??05/19/2022:?0.8 ??04/09/2022:?1.13 DIAGNOSIS Chief?Complaint:?N18.6?End?stage?renal?disease Patient?data?updated?06/04/2022?at?4:56?PM Signed?By:?Gisel,?Lilian,?TELEMARKETING AGENT??on?06/04/2022?4:56:45 PM END OF DOCUMENT
--- OUTSIDE RECORDS SUMMARY | 2022-12-12 15:59 | XMS_ITS ---
Author Name Arnie Gustafson Address [address] [place] [address] Phone [phone] Organization [facility] e, NA DOCUMENT DISCLAIMER Multiple document versions may exist, please be sure you review the latest version. The information in the [facility] Progress Note Document represents a providers documented clinical note containing certain health and medical information. It may not contain the complete medical history for the patient and should be independently verified. The represented time in the document is Eastern Time PROVIDER ROUNDING NOTE COMP Provider?Rounding?Note?Comp?-?Korey?Codie?-?Chart?#:?[id number] Patient?was?seen?on:?07/30/2022 Was?Patient?seen?today?:?07/30/2022 Method?of?Interaction:?Face?to?face Date?of?Interaction:?07/30/2022 Patient?is?stable Patient?issues?include: 107/52 Prior?Treatment:?07/28/2022? Dialyzer:?180NRe?Optiflux? Dialysate:?2.0?K,?2.5 Ca,?1.0?Mg,?100?Dextrose?(G2251)? Actual?Time:?03:32?Prescribed?Time:?3:30? Avg?BFR:?500?Avg?DFR:?500? Wt?Gain?(kg):?2.90?EDW?(kg):?101.50? post?Wt?(kg):? increase?[id number] VITALS ?Date:?Temperature:?Pulse:?Respirations:?BP?(Sitting):?BP?(Standing):?Weight:? Volume?Management?Comments ADEQUACY ?spKt/V?eKdrt/V?OLC?(Del)?spKtv?1.42?07/21/22 ???1.22 ?07/21/22 ???1.42?07/28/22 ???1.37?06/09/22 ???1.17 ?06/09/22 ???1.49?07/25/22 ???1.48?05/26/22 ???1.31 ?05/26/22 ???1.38?07/23/22 ?URR?Potassium,?Serum?&#160 ;?Bicarbonate?Creatinine?%?mEq/L?mEq/L?&#16 0;?mg/dL ?71?07/21/22 ?? 4.2?07/28/22 ???25?07/28/22 ???9.35?07/28/22 ???70?06/09/22 ?? 5.0?07/14/22 ???30?06/23/22 ???10.47? 06/23/22 ???71?05/26/22 ?? 4.5?07/07/22 ???26?05/12/22 ???7.94?05/12/22 ?-?Adequacy?parameters?reviewed? Adequacy ?-?Adequacy?target?met?Sitting?BP?Pre?Sitting BP?Post?Standing?BP?Post?122?/?59??07/28/22?139?/?71??07/28/22?142?/?70??07/28/22?136?/?68??07/25/22?100?/?52??07/25/22?110?/?56??07/25/22?150?/?88??07/23/22?163?/?78??07/23/22?156?/?70??07/23/22? Blood?Pressure ?-?Blood?pressure?controlled? Fluid?Status ?-?Fluid?status?acceptable? Interdialytic?Weight?Gain ?-?Interdialytic?weight?gain?acceptable? Prescription?Compliance ?-?Prescription?compliance?acceptable? ?-?Potassium?controlled? VASCULAR?ACCESS ?Type?Exit?Site?&#1 60;??Status?Access?ID?AVFistula-Standard?Forearm-Left?&#160 ;?Active?(In?Use)?[id number]? Access?Flows ??931mL?per?min?07/11/22 ??970mL?per?min?06/18/22 ??972mL?per?min?06/11/22 ??-?Vascular?access?reviewed? ??-?Current?access?is?functioning?well.? ANEMIA ?HGB? Transferrin?Sat.?(Calc) ?Ferritin?g/dL?%?ng/m L?10.2?07/28/22? ??15?07/28/22?578?06/23/22? ??9.8?07/21/22? ??34?06/23/22?742??&#160 ;?05/12/22? ??9.5?07/14/22? ??36?05/12/22?409??&#160 ;?09/17/21? Erythropoietin-Stimulating?Agents?(MISTY)?Administrations ??100?mcg?Mircera?07/18/22 ??75?mcg?Mircera?07/04/22 ??60?mcg?Mircera?06/27/22 IV?Iron?Administrations ??50?mg?Venofer?07/28/22 ??50?mg?Venofer?07/21/22 ??50?mg?Venofer?07/14/22 ?-?Anemia?reviewed? ?-?MISTY?adjusted?per?protocol? Mircera?per?protocol BONE?AND?MINERAL?METABOLISM ?Calcium,?Total?Calcium,?Corrected?Phosphorous? &#160 ;?PTH-Intact,?Plasma?mg/dL?mg/dL?mg/dL?pg/mL?9.0?07/28/22? ??9.2?07/28/22? ??2.9?&#16 0;???07/28/22? ??212?07/28/22? ??9.5?06/23/22? ??9.7?06/23/22? ??3.2?&#16 0;???06/23/22? ??176?06/23/22? ??9.0?05/12/22? ??9.2?05/12/22? ??2.6?&#16 0;???05/12/22? ??274?05/12/22? Vitamin?D?25?Hydroxy ??56.6?06/23/22 ??57.4?05/12/22 ??56.0?06/18/21 Vitamin?D?Analogue?Administrations ??2?mcg?Doxercalcifer?07/28/22 ??2?mcg?Doxercalcifer?07/25/22 ??2?mcg?Doxercalcifer?07/23/22 ?-?Bone?and?mineral?metabolism?parameters?reviewed? ?-?Calcium?controlled? ?-?Phosphorus?controlled? PTH ?-?PTH?within?target? Renvela?on?hold NUTRITION ?Albumin?eNPCR?g/dL?g/kg/day?3.7?07/28/22? ??0.60 ?07/21/22? ??3.8?06/23/22? ??0.68 ?06/09/22? ??3.7?05/12/22? ??0.76 ?05/26/22? ?-?Nutrition?reviewed? ?-?Patient?taking?protein?supplements? HOME?MEDICATIONS ?Milo?Low?Dose?Aspirin?(aspirin)??81?mg,?oral,?1 tablet?once?a?day ?Dialyvite?(b?complex?94-pfcsn-v-biot-zinc)??[phone]?mg-mg-m cg-mg,?oral,?1?tablet?once?a?day ?Lantus?U-100?Insulin?(insulin?glargine)??100?unit/mL,? subQ,?18?unit?every?evening ?Levo-T?(levothyroxine)??175?mcg,?oral,?1?tablet?once a?day ?Novolog?Flexpen?U-100?Insulin?(insulin?aspart?u-100)?? 100?unit/mL?(3?mL),?subQ,?5?unit?three?times?a?day ?pravastatin?(pravastatin)??10?mg,?oral,?1?tablet?once a?day ?Protonix?(pantoprazole)??40?mg,?oral,?1?tablet?once a?day ?Renvela?(sevelamer?carbonate)??800?mg,?oral,?1?tablet as?directed ?Singulair?(montelukast)??10?mg,?oral,?1?tablet?once a?day ?Spiriva?Respimat?(tiotropium?bromide)??2.5?mcg/actuation,?i nhl,?1?puff?once?a?day ?Wixela?Inhub?(fluticasone?propion-salmeterol)??250-50?mcg/dose,& #160;inhl,?1?puff?twice?a?day EXAM ?-?Exam?not?performed? ?-?Vital?signs?reviewed? INTEREST?AND?ELIGIBILITY?(If?changes?are?made,?Please?notify?SW?below) ?Date?of?discussion?from?transplant?assessment:?05/15/2022 ?Patient?already?on?transplant?list??No Arnie?Sj,? END OF DOCUMENT
--- OUTSIDE RECORDS SUMMARY | 2022-12-12 15:59 | XMS_ITS ---
Author Name Sj Arnie Address [address] [place], [place] [id number] Phone [phone] Organization [facility] e, NA DOCUMENT DISCLAIMER The information in the [facility]ialysis Provider Note Document represents a providersdocumented clinical note containing certain health and medical information. It may not contain the complete medical history for the patient and should be independently verified. The represented time in the document is Eastern Time PROVIDER ROUNDING NOTE BASIC Patient:?Korey?Lucyjackiemarcella,?1940,?82y,?M Dialysis?Location:?[facility] Attending?Music Engraver:?Jessica Service?Date:?05/21/2022 Service?Provider:?Arnie?Sj,? I?met?face?to?face?with?the?patient?today. 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;with?diabetic?chronic?kidney?disease Comments:?winter?texan?from?[place] has?been?on?HD?for?2?years reconciled?medications monitor?BP?at?home DIALYSIS?PRESCRIPTION ??IHD?3x?Week?Start?date:?05/14/22 ??Dialyzer:?180NRe?Optiflux ??BFR:?500 [...] eNPCR ??04/09/2022:?1.13 ??03/12/2022:?0.89 ??02/12/2022:?0.82 DIAGNOSIS Chief?Complaint:?N18.6?End?stage?renal?disease Patient?data?updated?05/21/2022?at?4:52?PM Signed?By:?Sj,?Arnie,???on?05/21/2022?4:54:52?PM END OF DOCUMENT
--- OUTSIDE RECORDS SUMMARY | 2022-12-12 15:59 | XMS_ITS ---
Author Name Gisel Lilian Address [address] [place] [address] Phone [phone] Organization [facility] e, NA DOCUMENT DISCLAIMER Multiple document versions may exist, please be sure you review the latest version. The information in the [facility] Progress Note Document represents a providers documented clinical note containing certain health and medical information. It may not contain the complete medical history for the patient and should be independently verified. The represented time in the document is Eastern Time PROVIDER ROUNDING NOTE BASIC Patient:?Korey?Lucyjackiemarcella,?1940,?82y,?M Dialysis?Location:?[place] Attending?Toll Line Mechanic:?Jessica Service?Date:?07/14/2022 Service?Provider:?Lilian?Gisel,?BEARING RING ASSEMBLER I?met?face?to?face?with?the?patient?today. 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;with?diabetic?chronic?kidney?disease Comments:?Patient?seen?at?HD?no?complaints?stable DIALYSIS?PRESCRIPTION ??IHD?3x?Week?Start?date:?07/11/22 ??Dialyzer:?180NRe?Optiflux ??BFR:?500 ??DFR:?Manual?500 ??Potassium:?2.0 ??Sodium:?138 ??EDW:?101.5 ??Duration:?3:30 ??Calcium:?2.5 ??Bicarb:?32 ??Rx?updated?on:?07/11/2022 TREATMENT?ASSESSMENT BP?Stand?Pre ??07/11/2022:?126/67 ??07/09/2022:?127/60 ??07/07/2022:?110/59 BP?Sit?Pre ??07/11/2022:?132/70 ??07/09/2022:?136/73 ??07/07/2022:?158/71 BP?Stand?Post ??07/11/2022:?149/63 ??07/09/2022:?112/54 ??07/07/2022:?124/55 BP?Sit?Post ??07/11/2022:?154/76 ??07/09/2022:?126/64 ??07/07/2022:?134/69 Tx?Duration ??07/11/2022:?3:30 ??07/09/2022:?3:30 ??07/07/2022:?3:32 Missed?Treatments 0?-?last?30?days 0?-?last?60?days FLUID?ASSESSMENT EDW?(kg) ??07/11/2022:?101.5 ??07/09/2022:?101.5 ??07/07/2022:?101.5 Weight?Pre?(kg) ??07/11/2022:?102.6 ??07/09/2022:?103.1 ??07/07/2022:?103.8 Weight?Post?(kg) ??07/11/2022:?101.0 ??07/09/2022:?101.0 ??07/07/2022:?101.2 PWV?(kg) ??07/11/2022:?-0.5 ??07/09/2022:?-0.5 ??07/07/2022:?-0.3 UF?Rate?(mL/kg/hr) ??07/11/2022:?4.5 ??07/09/2022:?5.9 ??07/07/2022:?7.3 ADEQUACY?ASSESSMENT spKt/V,?URR ??06/09/2022:?1.37,?70.0 ??05/26/2022:?1.48,?71.0 ??05/19/2022:?1.23,?65.0 ACCESS?ASSESSMENT ??Access?Type:?AVFistula ??Access?SubType:?Standard ??Access?Status:?Active?(In?Use)?-?10/19/2020 ??Access?Location:?Left?Forearm ??Created:?--/--/---- Flow ??07/11/2022:?931 ??06/18/2022:?970 ??06/11/2022:?972 ANEMIA?ASSESSMENT HGB ??07/07/2022:?9.2 ??07/02/2022:?9.6 ??06/30/2022:?8.9 ?? Ferritin ??06/23/2022:?578.0 ??05/12/2022:?742.0 ??03/12/2022:?965.0 Mircera,?IVP?(mcg) ??07/04/2022:?75 ??06/27/2022:?60 ??06/13/2022:?60 Iron?Sucrose?(Venofer)?(mg) ??07/07/2022:?50 ??05/09/2022:?50 ??05/02/2022:?50 BMM?ASSESSMENT Phosphorus,?Calcium ??06/23/2022:?3.2,?9.5 ??05/12/2022:?2.6,?9.0 ??04/09/2022:?6.1,?9.5 ?? PTH,?Intact ??06/23/2022:?176.0 ??05/12/2022:?274.0 ??03/12/2022:?400.0 Doxercalciferol?(Hectorol)?(mcg) ??07/11/2022:?2 ??07/09/2022:?2 ??07/07/2022:?2 NUTRITION?ASSESSMENT Albumin,?Potassium ??07/07/2022:?-,?4.5 ??06/30/2022:?-,?4.0 ??06/23/2022:?3.8,?4.4 ?? eNPCR ??06/09/2022:?0.68 ??05/26/2022:?0.76 ??05/19/2022:?0.8 DIAGNOSIS Chief?Complaint:?N18.6?End?stage?renal?disease Patient?data?updated?07/14/2022?at?1:51?PM Signed?By:?Gisel,?Lilian,?BEARING RING ASSEMBLER??on?07/14/2022?1:52:52 PM END OF DOCUMENT
--- OUTSIDE RECORDS SUMMARY | 2022-12-12 15:59 | XMS_ITS ---
Author Name Sj Arnie Address [address] [place] [address] Phone [phone] Organization [facility] e, NA DOCUMENT DISCLAIMER The information in the [facility] Dialysis Provider Note Document represents a providersdocumented clinical note containing certain health and medical information. It may not contain the complete medical history for the patient and should be independently verified. The represented time in the document is Eastern Time PROVIDER ROUNDING NOTE BASIC Patient:?Korey?Lucymaryamjose,?1940,?82y,?M Dialysis?Location:?[place] Attending?Dipper Machine Operator:?Jessica Service?Date:?06/18/2022 Service?Provider:?Arnie?Sj,? I?met?face?to?face?with?the?patient?today. 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;with?diabetic?chronic?kidney?disease DIALYSIS?PRESCRIPTION ??IHD?3x?Week?Start?date:?06/06/22 ??Dialyzer:?180NRe?Optiflux ??BFR:?500 ??DFR:?Manual?500 ??Potassium:?2.0 ??Sodium:?138 ??EDW:?101 ??Duration:?3:30 ??Calcium:?2.5 ??Bicarb:?32 ??Rx?updated?on:?06/04/2022 TREATMENT?ASSESSMENT BP?Stand?Pre ??06/13/2022:?110/60 ??06/11/2022:?140/71 BP?Sit?Pre ??06/16/2022:?107/53 ??06/13/2022:?109/52 ??06/11/2022:?146/69 BP?Stand?Post ??06/16/2022:?112/44 ??06/13/2022:?110/58 ??06/11/2022:?123/59 BP?Sit?Post ??06/16/2022:?122/61 ??06/13/2022:?117/55 ??06/11/2022:?129/59 Tx?Duration ??06/16/2022:?3:34 ??06/13/2022:?3:40 ??06/11/2022:?3:31 Missed?Treatments 0?-?last?30?days 0?-?last?60?days FLUID?ASSESSMENT EDW?(kg) ??06/16/2022:?101.0 ??06/13/2022:?101.0 ??06/11/2022:?101.0 Weight?Pre?(kg) ??06/16/2022:?105.2 ??06/13/2022:?104.3 ??06/11/2022:?103.7 Weight?Post?(kg) ??06/16/2022:?102.0 ??06/13/2022:?101.5 ??06/11/2022:?102.1 PWV?(kg) ??06/16/2022:?1.0 ??06/13/2022:?0.5 ??06/11/2022:?1.1 UF?Rate?(mL/kg/hr) ??06/16/2022:?8.8 ??06/13/2022:?7.5 ??06/11/2022:?4.5 ADEQUACY?ASSESSMENT spKt/V,?URR ??06/09/2022:?1.37,?70.0 ??05/26/2022:?1.48,?71.0 ??05/19/2022:?1.23,?65.0 ACCESS?ASSESSMENT ??Access?Type:?AVFistula ??Access?SubType:?Standard ??Access?Status:?Active?(In?Use)?-?10/19/2020 ??Access?Location:?Left?Forearm ??Created:?--/--/---- Flow ??06/11/2022:?972 ??03/21/2022:?883 ??11/15/2021:?955 ANEMIA?ASSESSMENT HGB ??06/16/2022:?9.2 ??06/09/2022:?9.6 ??06/02/2022:?9.1 ?? Ferritin ??05/12/2022:?742.0 ??03/12/2022:?965.0 ??12/11/2021:?620.0 Mircera,?IVP?(mcg) ??06/13/2022:?60 ??05/30/2022:?50 ??05/16/2022:?50 Iron?Sucrose?(Venofer)?(mg) ??05/09/2022:?50 ??05/02/2022:?50 BMM?ASSESSMENT Phosphorus,?Calcium ??05/12/2022:?2.6,?9.0 ??04/09/2022:?6.1,?9.5 ??03/12/2022:?3.8,?9.1 ?? PTH,?Intact ??05/12/2022:?274.0 ??03/12/2022:?400.0 ??02/12/2022:?329.0 Doxercalciferol?(Hectorol)?(mcg) ??06/16/2022:?2 ??06/13/2022:?2 ??06/11/2022:?2 NUTRITION?ASSESSMENT Potassium ??06/09/2022:?4.5 ??05/26/2022:?4.5 ??05/19/2022:?4.1 ?? eNPCR ??06/09/2022:?0.68 ??05/26/2022:?0.76 ??05/19/2022:?0.8 DIAGNOSIS Chief?Complaint:?N18.6?End?stage?renal?disease Patient?data?updated?06/18/2022?at?3:52?PM Signed?By:?Sj,?Arnie,???on?06/18/2022?3:53:07?PM END OF DOCUMENT
[2022-12-12] MEDS: dexAMETHasone 10 MG/ML inj 6 MG PO (17:49)
== END 2022-12-12 17:50 | disposition home or self-care (01) ==
PROVIDERS: Emergency Provider Emergency Medicine Emergency Medical Services; PCP Family Medicine
DX: R51.9 Headache, unspecified (principal)
CPT/HCPCS: 70450; 99284; J1100

== ENCOUNTER 2022-12-27 12:36 | Emergency (ER) | payer MEDICARE, OTHER, SELFPAY ==
[2022-12-27] VITALS (40 sets, daily range): BP systolic 116–156; BP diastolic 60–81; PULSE 69–94; RESP 14–18; TEMP 36.6; O2SAT 91–98; BMI 29.3
--- NOTE | 2022-12-27 13:11 | ED_ITS ---
HPI - Altered Mental Status General Time Seen by Provider: 13:11 Date Seen: 12/27/22 Chief Complaint: Altered Mental Status Stated Complaint: hallucinations, mild headache Time Seen by Provider: 12/27/22 12:54 Source: patient and RN notes reviewed Mode of arrival: ambulatory Limitations: no limitations History of Present Illness HPI narrative: Sheryl is an 82-year-old male brought in by his for concern of visual hallucinations. They were bad last night, he is not seeing visions of people today. Last night he was seen visions of elderly people, the men were scruffy and the women did not have well kept hair. They were conversing and interacting together. It does not sound like he was having any auditory hallucinations but he admits he is hard of hearing anyways. Reviewed with him that he would not necessarily here this but that the sounds would actually be within his brain and not something he would audibly hear so to speak. His notes that he hallucinated significantly after 1 dose of [place] from headache that he was seen here in the ER on December 12. She notes it took quite a while for him to come out of that. Patient recollects that in 2014 he was given a medicine when he was in for a fracture that was being repaired, had severe hallucinations, can recollect that he was a [place] and they had the [place] strap to the seats. He is not seeing any people right now. He notes when he blinks, the colors will change on the garcia and ceilings. is worried he is maybe not drinking enough, patient is a dialysis patient and last dialyzed yesterday. He makes minimal urine, notes that he gets his bladder irrigated with gentamicin every 2 weeks. He is aware at this time that the hallucinations were real his notes when it was happening that she had do keep telling him that it was not real. No fevers, no trauma. No new medications. MD complaint: altered mental status Related Data Home Medications Medication Instructions Recorded Confirmed levothyroxine 12/12/22 pravastatin 12/12/22 Restasis 12/27/22 acetaminophen 650 mg 650 mg PO Q8H PRN 12/27/22 12/27/22 tablet,extended release (Tylenol Arthritis Pain) albuteral 12/27/22 aspirin 81 mg capsule 81 mg PO DAILY 12/27/22 12/27/22 coenzyme Q10 100 mg capsule (Co 100 mg PO DAILY 12/27/22 12/27/22 Q-10) fluticasone 100 mcg-salmeterol 50 1 inh inhalation BID 12/27/22 12/27/22 mcg/dose blistr powdr for inhalation (Wixela Inhub) fluticasone furoate 50 inhalation 12/27/22 mcg/actuation blister powder for inhalation guaifenesin 100 mg/5 mL oral liquid 100 mg PO Q6H coughing 12/27/22 12/27/22 insulin aspart U-100 100 unit/mL 18 unit subcut QPM 12/27/22 12/27/22 (3 mL) subcutaneous pen (Novolog FlexPen U-100 Insulin aspart) loratadine 10 mg tablet (Claritin) 10 mg PO DAILY 12/27/22 12/27/22 montelukast 10 mg tablet 10 mg PO DAILY 12/27/22 12/27/22 (Singulair) nitroglycerin 0.4 mg sublingual 0.4 mg sublingual Q5-15M PRN 12/27/22 12/27/22 tablet (Nitrostat) pantoprozole 12/27/22 sennosides 8.6 mg capsule (senna) 8.6 mg PO DAILY 12/27/22 12/27/22 tiotropium bromide 2.5 1 inh inhalation DAILY 12/27/22 12/27/22 mcg/actuation mist for inhalation (Spiriva Respimat) Previous Rx's Medication Instructions Recorded hydrocodone 5 mg-acetaminophen 325 1 tab PO Q4-6H PRN pain #10 tabs 12/12/22 mg tablet Allergies Allergy/AdvReac Type Severity Reaction Status Date / Time lisinopril Allergy Verified 12/27/22 15:54 metoclopramide [From Reglan] Allergy Verified 12/27/22 15:54 omeprazole Allergy Verified 12/27/22 15:54 hydrocodone/acetaminophen Allergy Uncoded 12/27/22 15:54 lipitor Allergy Uncoded 12/27/22 15:54 Review of Systems Status of ROS: Reports: 6 or more systems reviewed and unremarkable except as noted in History and below [facility] Medical History (Updated 12/27/22 @ 18:05 by Chiquita Samayoa MD) DM (diabetes mellitus), type 2 ?E11.9 - Type 2 diabetes mellitus without complications (ICD-10) COPD (chronic obstructive pulmonary disease) ?J44.9 - Chronic obstructive pulmonary disease, unspecified (ICD-10) Social History Smoking Status: Never smoker Do you use any of these nicotine containing products: None Second hand tobacco smoke exposure: No How often do you have a drink containing alcohol: never How often do you have six or more drinks on one occasion: Never AUDIT-C Alcohol total score: 0 Non-prescribed substance use: denies use service: No Exam Const: Vital Signs, click to edit/add: Vital Signs - 24 hr 12/27/22 12:57 12/27/22 14:51 Temperature 97.9 F Pulse Rate [Left P ulse Oximeter] 73 70 Respiratory Rate 14 Blood Pressure [Ri ght Upper Arm] 130/76 148/72 H Pulse Oximetry 94 98 Oxygen Delivery Me thod Room Air Room Air Documenting provider has reviewed patient's vital signs: yes Other: Sheryl is alert, interactive but hard of hearing. He does seem to understand me if I speak louder. Denies any definite hallucinations at this time. Pupils are equal round, sclera clear, conjugate gaze. Symmetrical facial function. No traumatic changes of his face or head. Neck is supple, no masses. Lungs are clear to auscultation bilaterally, no wheezing or crackles. CV regular rate and rhythm, no significant murmur, normal S1-S2, no S3-S4. Abdomen is soft, no rebound or guarding, no masses. No significant lower extremity edema. 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 Strength is 5/5 and symmetric throughout both extremities. Is known to have underlying peripheral neuropathy with sensory changes which are at baseline per report. He has no focal deficits at this time. Speech is appropriate. Course Course Hospital Course: Patient obviously is at risk for hallucinations given his history there reporting to me. Will check chemistries and electrolytes, basic labs. Will update head CT just to make sure that there isn't any small new bleed. For we find no correctable etiology, may have to follow up outpatient with Neurology. As for his 's concern of dehydration, reviewed with her that it we do not want to fluid overload him with IV fluids. Certainly we can encourage him to drink some. Reevaluation(s) Time of Reevaluation #1: 15:21 Reevaluation #1: Reviewed with patient's as he was sleeping that his C-reactive protein is quite elevated, at a level of 22. Discussed the possibility of occult infection. She states she was wondering about that. I do think we need to consider his hallucinations as part of a possible developing delirium with infe ction. We will obtain a CT of his chest abdomen pelvis with IV contrast. He can dialyze on Thursday and this will take care of the contrast. She understands head CT is showing nothing new. She agrees to the CT imaging. Time of Reevaluation #2: 18:01 Reevaluation #2: Have reviewed with patient and his that there is significant pneumonia on his chest CT. Rocephin and azithromycin have been ordered. Did review renal guidelines. He has started having visual hallucinations again, did order 5 mg oral Zyprexa. Have reviewed with them that given his dialysis need, our hospitalist felt it prudent that we consider transfer. She was quite worried about him not being ready to be discharged on Thursday when he would need dialysis. Given his medical complexity and on and significant pneumonia on CT, hallucinations that are likely suggestive of this being a delirium, do think there is a strong likelihood he might be in longer than tomorrow. I have gotten acceptance at [facility]. His is happy, she prefers [facility]. Consultations Consultation #1: Spoke with Dr. Moseley regarding patient, she feels this patient would be best suited to transfer. Did call [facility] myself, [facility] and [facility] are on [facility] [place] is possible but we would need to contact them. Staff is going to start contacting other organizations. Time: 16:30 Consultation #2: Spoke with Dr. Barron hospitalist from [facility]. She does accept this patient. They have less than a 4 hour wait for placement. Patient at this time continues to be hemodynamically stable but is exhibiting increased visual hallucinations. There certainly could be a component of with this as well. Time: 17:46 Vital Signs Vital signs: Initial Vital Signs Temperature 97.9 F 12/27/22 12:57 Temperature Source Temporal Artery Scan 12/27/22 12:57 Pulse Rate 73 12/27/22 12:57 Respiratory Rate 14 12/27/22 12:57 Blood Pressure 130/76 12/27/22 12:57 Blood Pressure Mean 94 12/27/22 12:57 Pulse Oximetry 94 12/27/22 12:57 Oxygen Delivery Method Room Air 12/27/22 12:57 Vital Signs Temperature 97.9 F 12/27/22 12:57 Pulse Rate 73 12/27/22 12:57 Respiratory Rate 14 12/27/22 12:57 Blood Pressure 130/76 12/27/22 12:57 Pulse Oximetry 94 12/27/22 12:57 Oxygen Delivery Method Room Air 12/27/22 12:57 Temperature 97.9 F 12/27/22 12:57 Pulse Rate 70 12/27/22 14:51 Respiratory Rate 14 12/27/22 12:57 Blood Pressure 148/72 H 12/27/22 14:51 Pulse Oximetry 98 12/27/22 14:51 Oxygen Delivery Method Room Air 12/27/22 14:51 MDM - Altered Mental Status Lab Data Attestation: I reviewed the patient's lab results. Labs: Lab Results 12/27/22 12/27/22 Range/Units 13:21 13:54 WBC 6.80 (4.50-11.00) K/uL RBC 2.78 L (4.30-5.90) m/uL Hgb 9.0 L (13.5-17.5) gm/dL Hct 27.6 L (37.0-53.0) % MCV 99 (80-100) fL MCH 32 (26-34) pg MCHC 33 (32-36) gm/dL RDW Coeff of Jordy 15.0 (11.5-15.5) % Plt Count 160 (140-440) K/uL Neut % (Auto) 78.6 H (42.0-72.0) % Lymph % (Auto) 7.8 L (20-44) % [place] % (Auto) 11.5 H (0.0-11.0) % Eos % (Auto) 1.5 (0.0-7.0) % Baso % (Auto) 0.3 (0.0-3.0) % Neut # (Auto) 5.30 (1.7-7.0) K/uL Lymph # (Auto) 0.50 L (0.90-2.90) K/uL [place] # (Auto) 0.80 (0.00-0.90) K/UL Eos # (Auto) 0.10 (0.00-0.50) K/uL Baso # (Auto) 0.02 (0.00-0.30) K/uL Abs Immat Gran (auto) 0.02 (0.00-0.30) K/uL Imm/Tot Granulo (auto) 0.3 % Sodium 135 (135-149) mmol/L Potassium 4.0 (3.6-5.1) mmol/L Chloride 94 L (96-114) mmol/L Carbon Dioxide 31 (20-32) mmol/L BUN 27 (7-30) mg/dL Creatinine 5.8 H (0.5-1.5) mg/dL Estimated Creat Clear 10.41 Estimated GFR 9 ml/min Glucose 194 H (60-115) mg/dL Lactate 0.8 (0.5-1.9) mmol/L Calcium 8.8 (8.4-10.6) mg/dL Total Bilirubin 0.9 (0.1-1.5) mg/dL AST 23 (12-35) U/L ALT 17 (4-50) U/L Alkaline Phosphatase 76 (40-150) U/L C-Reactive Protein 22.0 H (0.5-1.0) mg/dL Total Protein 7.5 (6.0-8.3) g/dL Albumin 3.6 (3.3-5.0) g/dL Ethyl Alcohol < 0.01 L (0.01-0.03) % SARS-CoV-2 (PCR) Negative SARS-CoV-2 (Negative) Imaging Data CT scan - head: Attestation: I have reviewed the pertinent imaging results. Radiologist's impression: Patient: SHERYL SERRANO Facility:?[facility] Patient ID:?[id number] Site Patient ID:?[id number]. Site :?[id number] Study:?CT Head w/o-12/27/2022 2:14:53 PM Ordering Physician:Girish Porras Final Report: INDICATION: Visual hallucinations TECHNIQUE: Head CT without contrast. COMPARISON: 12/12/[address] FINDINGS: CSF spaces: Within normal limits for age. Brain parenchyma and extra-axial spaces: There are nonspecific low attenuation white matter changes consistent with chronic microvascular disease. No sign of mass, hemorrhage, or midline shift. Skull base and calvarium: The visualized paranasal sinuses and mastoid air cells demonstrate no acute or significant findings. The visualized orbits are grossly unremarkable. No skull fractures. IMPRESSION: No acute intracranial findings. No change. Please note that all CT scans at this facility use dose modulation, iterative reconstruction, and/or weight-based dosing when appropriate to reduce radiation dose to as low as reasonably achievable. Dictated by James Brand MD @ 12/27/2022 3:06:32 PM (Electronic Signature) CT Chest/Ab/Pelvis: Attestation: I have reviewed the pertinent imaging results. Radiologist's impression: Patient: SHERYL SERRANO Facility:?[facility] Patient ID:?[id number] Site Patient ID:?[id number]. Site :?[id number] Study:?CT Chest/Abd/Pelvis W/ 100CC [id number]/22/2023 3:53:51 PM Ordering Physician:Girish Porras Final Report: INDICATION: Altered mental status, CRP of 22 TECHNIQUE: CT chest, abdomen and pelvis acquired with 100 milliliters Isovue 370 IV contrast. COMPARISON: October 18, 2020. February 06, 2021. FINDINGS: CHEST: Cardiovascular structures: Cardiomegaly with coronary artery calcifications. Thoracic aorta and main pulmonary artery are normal in caliber. Mediastinum and devante: No mass or adenopathy. Lungs and pleura: Multi focal left lower lobe ground-glass consolidations. Indeterminate 1.4 centimeter right upper lobe pulmonary nodule. Small bilateral pleural effusions with compressive atelectasis. No pneumothoraces. Multifocal granulomas. Chest wall and axilla: Right chest wall pacemaking device. No mass or adenopathy. Bones: Sternotomy wires. No suspicious bone lesions. Mild chronic T4 compression deformity. Degenerative changes. ABDOMEN AND PELVIS: Liver: Unremarkable. Gallbladder and bile ducts: Cholelithiasis. Pancreas: Unremarkable. Spleen: Splenic calcifications. Adrenal glands: Unremarkable. Kidneys: Bilateral renal atrophy. Nonspecific chronic bilateral perinephric inflammatory stranding. No hydronephrosis. GI tract: No bowel obstruction. Mild colonic stool burden. Unremarkable appendix. Vascular structures: Moderate aortoiliac arterial calcifications. Lymph nodes: Unremarkable. Miscellaneous: Unremarkable. No free air or significant free fluid. Pelvic Organs: Mild prostatomegaly. Mildly distended bladder with circumferential wall thickening. Bones: Degenerative changes. Mild chronic L1 compression deformity. IMPRESSION: Multi focal left lower lobe pneumonia. Small bilateral pleural effusions. Indeterminate 1.4 centimeter right upper lobe pulmonary nodule, possibly infectious/inflammatory in etiology. Recommend follow-up chest CT in 3 months to evaluate for resolution after treatment. Cardiomegaly with coronary artery calcifications. Cholelithiasis without cholecystitis. Mildly distended bladder with circumferential wall thickening. Recommend correlation with urinalysis if UTI is suspected. Please note that all CT scans at this facility use dose modulation, iterative reconstruction, and/or weight-based dosing when appropriate to reduce radiation dose to as low as reasonably achievable. Dictated by Matt Ham MD @ 12/27/2022 4:17:54 PM (Electronic Signature) Discharge Plan Discharge Clinical Impression: Community acquired pneumonia, Hallucinations, visual, End stage renal disease on dialysis Patient Disposition: [facility] Discharge Location: [facility] Condition: Stable Prescriptions: No Action levothyroxine pravastatin hydrocodone-acetaminophen 5-325 mg tablet 1 tab PO Q4-6H PRN (Reason: pain) Qty: 10 0RF insulin aspart U-100 [Novolog FlexPen U-100 Insulin] 100 unit/mL (3 mL) insulin pen 18 unit subcut QPM albuteral 90 mcg Rx Instructions: 1-2 puffs 4 times a day as needed Spiriva Respimat 2.5 mcg/actuation mist 1 inh inhalation DAILY fluticasone propion-salmeterol [Wixela Inhub] 100-50 mcg/dose blister with device 1 inh inhalation BID Restasis Rx Instructions: 0.05 % 1 drop each eye every 12 hours. guaifenesin 100 mg/5 mL liquid 100 mg PO Q6H fluticasone furoate 50 mcg/actuation blister with device inhalation montelukast [Singulair] 10 mg tablet 10 mg PO DAILY pantoprozole 40 mg Rx Instructions: 1 tablet before meals every day nitroglycerin [Nitrostat] 0.4 mg tablet, sublingual 0.4 mg sublingual Q5-15M PRN Rx Instructions: do not exceed 3 doses per episode aspirin 81 mg capsule 81 mg PO DAILY loratadine [Claritin] 10 mg tablet 10 mg PO DAILY coenzyme Q10 [Co Q-10] 100 mg capsule 100 mg PO DAILY senna 8.6 mg capsule 8.6 mg PO DAILY acetaminophen [Tylenol Arthritis Pain] 650 mg tablet extended release 650 mg PO Q8H PRN Follow Up/Referrals: Anna Marie Oglesby DO [Primary Care Provider] -
--- NOTE | 2022-12-27 13:33 | CRLHL7_ITS ---
For Patients: As a result of the Century Cures Act, medical imaging exams and procedure reports are released immediately into your electronic medical record. You may view this report before your referring provider. If you have questions, please contact your health care provider. INDICATION: Visual hallucinations TECHNIQUE: Head CT without contrast. COMPARISON: 12/12/[address] FINDINGS: CSF spaces: Within normal limits for age. Brain parenchyma and extra-axial spaces: There are nonspecific low attenuation white matter changes consistent with chronic microvascular disease. No sign of mass, hemorrhage, or midline shift. Skull base and calvarium: The visualized paranasal sinuses and mastoid air cells demonstrate no acute or significant findings. The visualized orbits are grossly unremarkable. No skull fractures. IMPRESSION: No acute intracranial findings. No change. Please note that all CT scans at this facility use dose modulation, iterative reconstruction, and/or weight-based dosing when appropriate to reduce radiation dose to as low as reasonably achievable. Dictated by James Brand MD @ 12/27/2022 3:06:32 PM (Electronically Signed)
--- OUTSIDE RECORDS SUMMARY | 2022-12-27 13:36 | XMS_ITS | Continuity of Care Document ---
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 Role Phone Unavailable Unavailable Unavailable Advance Directives Directive Yes / No Effective Date File Name No Information Encounters Encounter Description Practice Location Reason(s) For Visit Diagnoses Date Provider Providers Copied on Encounter [facility], [address] [address], [place], [place], [id number], [place] tel:[phone] [facility] No Information Aug-201 8 No Information Family History Family Member Type Diagnosis Age At Onset No Information Payers Payer name Insurance type Covered green party ID Authoriza tion(s) No Information Social History Type Description Quantity Date Captured Comments Sex Male Smoking Status No Information Chief Complaint And Reason For Visit No Information Reason For Referral Reason For Referral No Information History Of Present Illness Encounter Date Complaint History Of Prese nt Illness No Information Functional Status Date Functional Assessmen t No Information Instructions Date Instruction Additional Infor mation No Information Assessments Type Assessment Date No Information Patient Care Teams Name Effective Dates (start - stop) Status Members No Information
--- OUTSIDE RECORDS SUMMARY | 2022-12-27 13:36 | XMS_ITS | Continuity of Care Document ---
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
--- NOTE | 2022-12-27 13:49 | ED.NURSE ---
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
[2022-12-27 14:01] LABS: Lactate* 0.8 mmol/L (0.5-1.9)
[2022-12-27 14:07] LABS: Basophils Absolute Auto 0.02 K/uL (0.00-0.30); Basophils Percent Auto 0.3 % (0.0-3.0); Eosinophils Percent Auto 1.5 % (0.0-7.0); Hematocrit 27.6 % (37.0-53.0); Immature Granulocytes Abs Auto 0.02 K/uL (0.00-0.30); Immature Granulocytes Pct Auto 0.3 %; Lymphocytes Percent Auto 7.8 % (20-44); Mean Corpuscular HGB Conc 33 gm/dL (32-36); Mean Corpuscular Hemoglobin 32 pg (26-34); Mean Corpuscular Volume 99 fL (80-100); Monocytes Percent Auto 11.5 % (0.0-11.0); Neutrophils Percent Auto 78.6 % (42.0-72.0); Platelet Count* 160 K/uL (140-440); Red Blood Count 2.78 m/uL (4.30-5.90)
[2022-12-27 14:33] LABS: Slide Review Reflex No
[2022-12-27 14:33] LABS: SARS PCR* Negative SARS-CoV-2 (Negative)
[2022-12-27 14:34] LABS: Albumin* 3.6 g/dL (3.3-5.0); Chloride* 94 mmol/L (96-114)
[2022-12-27 14:35] LABS: Sodium* 135 mmol/L (135-149)
[2022-12-27 14:37] LABS: Creatinine* 5.8 mg/dL (0.5-1.5); Est. Creatinine Clearance* 10.41; Estimated Glomerular Filt Rate 9 ml/min
[2022-12-27 14:38] LABS: Alanine Aminotransferase* 17 U/L (4-50); Alkaline Phosphatase* 76 U/L (40-150); Aspartate Amino Transferase* 23 U/L (12-35); Bilirubin Total* 0.9 mg/dL (0.1-1.5); Blood Urea Nitrogen* 27 mg/dL (7-30); Calcium* 8.8 mg/dL (8.4-10.6); Carbon Dioxide* 31 mmol/L (20-32); Glucose* 194 mg/dL (60-115); Total Protein* 7.5 g/dL (6.0-8.3)
[2022-12-27 14:44] LABS: Ethanol* < 0.01 % (0.01-0.03)
--- NOTE | 2022-12-27 15:12 | CRLHL7_ITS ---
For Patients: As a result of the Century Cures Act, medical imaging exams and procedure reports are released immediately into your electronic medical record. You may view this report before your referring provider. If you have questions, please contact your health care provider. INDICATION: Altered mental status, CRP of 22 TECHNIQUE: CT chest, abdomen and pelvis acquired with 100 milliliters Isovue 370 IV contrast. COMPARISON: October 18, 2020. February 06, 2021. FINDINGS: CHEST: Cardiovascular structures: Cardiomegaly with coronary artery calcifications. Thoracic aorta and main pulmonary artery are normal in caliber. Mediastinum and devante: No mass or adenopathy. Lungs and pleura: Multi focal left lower lobe ground-glass consolidations. Indeterminate 1.4 centimeter right upper lobe pulmonary nodule. Small bilateral pleural effusions with compressive atelectasis. No pneumothoraces. Multifocal granulomas. Chest wall and axilla: Right chest wall pacemaking device. No mass or adenopathy. Bones: Sternotomy wires. No suspicious bone lesions. Mild chronic T4 compression deformity. Degenerative changes. ABDOMEN AND PELVIS: Liver: Unremarkable. Gallbladder and bile ducts: Cholelithiasis. Pancreas: Unremarkable. Spleen: Splenic calcifications. Adrenal glands: Unremarkable. Kidneys: Bilateral renal atrophy. Nonspecific chronic bilateral perinephric inflammatory stranding. No hydronephrosis. GI tract: No bowel obstruction. Mild colonic stool burden. Unremarkable appendix. Vascular structures: Moderate aortoiliac arterial calcifications. Lymph nodes: Unremarkable. Miscellaneous: Unremarkable. No free air or significant free fluid. Pelvic Organs: Mild prostatomegaly. Mildly distended bladder with circumferential wall thickening. Bones: Degenerative changes. Mild chronic L1 compression deformity. IMPRESSION: Multi focal left lower lobe pneumonia. Small bilateral pleural effusions. Indeterminate 1.4 centimeter right upper lobe pulmonary nodule, possibly infectious/inflammatory in etiology. Recommend follow-up chest CT in 3 months to evaluate for resolution after treatment. Cardiomegaly with coronary artery calcifications. Cholelithiasis without cholecystitis. Mildly distended bladder with circumferential wall thickening. Recommend correlation with urinalysis if UTI is suspected. Please note that all CT scans at this facility use dose modulation, iterative reconstruction, and/or weight-based dosing when appropriate to reduce radiation dose to as low as reasonably achievable. Dictated by Matt Ham MD @ 12/27/2022 4:17:54 PM (Electronically Signed)
[2022-12-27] MEDS: cefTRIAXone 1 GM in 0.9 % SODIUM CHLORIDE Mini-bag 100 ML IVPB (16:41)
[2022-12-27] MEDS: OLANZapine 5 MG TAB.RAPDIS PO (17:25)
[2022-12-27] MEDS: AZITHROMYCIN 500 MG in 0.9 % SODIUM CHLORIDE 250 ml 250 ML 255 MG IVPB (17:54)
[2022-12-27] MEDS: OLANZapine 5 MG/ML inj 2.5 MG IVP (19:59)
[2022-12-28] VITALS: PULSE 73; O2SAT 93
[2022-12-28 00:15] VITALS: PULSE 72; O2SAT 93
[2022-12-28 00:30] VITALS: PULSE 75; O2SAT 94
[2022-12-28 00:31] VITALS: BP 141/71; PULSE 73; O2SAT 95
[2022-12-28 00:50] VITALS: PULSE 72; O2SAT 94
--- NOTE | 2022-12-28 01:11 | PC.NURSE ---
Report given to Kelly FELDMAN at [facility], going to room E [id number]
== END 2022-12-28 01:58 | disposition short-term general hospital (02) ==
PROVIDERS: Emergency Provider Family Medicine; PCP Family Medicine
DX: R44.1 Visual hallucinations (principal); J18.9 Pneumonia, unspecified organism; N18.6 End stage renal disease; Z99.2 Dependence on renal dialysis
CPT/HCPCS: 36415; 70450; 71260; 74177; 80053; 82077; 82962; 83605; 85025; 86140; 87635; 94761; 96365; 96366; 96375; 99285; A9270; J0456; J0696; J7050; Q9967; S0166

== ENCOUNTER 2023-04-21 07:55 | Emergency (ER) | payer MEDICARE, OTHER, SELFPAY ==
[2023-04-21] VITALS (60 sets, daily range): BP systolic 92–136; BP diastolic 44–74; PULSE 69–85; RESP 18; TEMP 36.6–37; O2SAT 91–99; BMI 28.8
--- NOTE | 2023-04-21 08:23 | ED_ITS ---
HPI - General Adult General Time Seen by Provider: : <Chiquita Samayoa MD - Last Filed: 05/26/23 00:49> Date Seen: 04/21/23 <Chiquita Samayoa MD - Last Filed: 05/26/23 00:49> Chief complaint: Cough <Chiquita Samayoa MD - Last Filed: 05/26/23 00:49> Stated complaint: chest pains <Chiquita Samayoa MD - Last Filed: 05/26/23 00:49> Time Seen by Provider: 04/21/23 08:23 <Chiquita Samayoa MD - Last Filed: 05/26/23 00:49> Source: patient, EMS and RN notes reviewed <Chiquita Samayoa MD - Last Filed: 05/26/23 00:49> Mode of arrival: EMS <Chiquita Samayoa MD - Last Filed: 05/26/23 00:49> Limitations: no limitations <Chiquita Samayoa MD - Last Filed: 05/26/23 00:49> History of Present Illness HPI narrative: Patient is an 83-year-old male brought in by EMS from home where he resides with his with chest pain overnight, now resolved, increased weakness overnight, coughing. Patient dialyzed yesterday, dialyzes Thursday. He has a 32 oz fluid restriction daily, this does include if he eats something like soup. He has felt cold and chilled overnight, his did get O2 sats in the 80s at times. He states he has had some right flank pain for about a month, sometimes does have abdominal pain but nothing acute as far as I can ascertain from his history. He is a bit difficult in his history taking. His does answer some of the questions. He states he feels like a wet noodle. He is diabetic, end-stage renal disease on dialysis. Does also have COPD in his record but his states they saw a specialist, was not COPD and was potentially asbestos related changes. <Chiquita Samayoa MD - Last Filed: 05/26/23 00:49> Related Data Home medications: Home Medications Medication Instructions Recorded Confirmed levothyroxine 12/12/22 pravastatin 12/12/22 Restasis 12/27/22 acetaminophen 650 mg 650 mg PO Q8H PRN 12/27/22 12/27/22 tablet,extended release (Tylenol Arthritis Pain) albuteral 12/27/22 aspirin 81 mg capsule 81 mg PO DAILY 12/27/22 12/27/22 coenzyme Q10 100 mg capsule (Co 100 mg PO DAILY 12/27/22 12/27/22 Q-10) fluticasone 100 mcg-salmeterol 50 1 inh inhalation BID 12/27/22 12/27/22 mcg/dose blistr powdr for inhalation (Wixela Inhub) fluticasone furoate 50 inhalation 12/27/22 mcg/actuation blister powder for inhalation guaifenesin 100 mg/5 mL oral liquid 100 mg PO Q6H coughing 12/27/22 12/27/22 insulin aspart U-100 100 unit/mL 18 unit subcut QPM 12/27/22 12/27/22 (3 mL) subcutaneous pen (Novolog FlexPen U-100 Insulin aspart) loratadine 10 mg tablet (Claritin) 10 mg PO DAILY 12/27/22 12/27/22 montelukast 10 mg tablet 10 mg PO DAILY 12/27/22 12/27/22 (Singulair) nitroglycerin 0.4 mg sublingual 0.4 mg sublingual Q5-15M PRN 12/27/22 12/27/22 tablet (Nitrostat) pantoprozole 12/27/22 sennosides 8.6 mg capsule (senna) 8.6 mg PO DAILY 12/27/22 12/27/22 tiotropium bromide 2.5 1 inh inhalation DAILY 12/27/22 12/27/22 mcg/actuation mist for inhalation (Spiriva Respimat) Previous Rx's Medication Instructions Recorded hydrocodone 5 mg-acetaminophen 325 1 tab PO Q4-6H PRN pain #10 tabs 12/12/22 mg tablet doxycycline hyclate 100 mg capsule 100 mg PO BID #10 caps 04/22/23 <Chiquita Samayoa MD - Last Filed: 05/26/23 00:49> Allergies/adverse reactions: Allergies Allergy/AdvReac Type Severity Reaction Status Date / Time lisinopril Allergy Verified 12/27/22 15:54 metoclopramide [From Reglan] Allergy Verified 12/27/22 15:54 omeprazole Allergy Verified 12/27/22 15:54 hydrocodone/acetaminophen Allergy Uncoded 12/27/22 15:54 lipitor Allergy Uncoded 12/27/22 15:54 <Chiquita Samayoa MD - Last Filed: 05/26/23 00:49> Review of Systems Status of ROS: Reports: 6 or more systems reviewed and unremarkable except as noted in History and below <Chiquita Samayoa MD - Last Filed: 05/26/23 00:49> [facility] Medical History: Medical History DM (diabetes mellitus), type 2 ?E11.9 - Type 2 diabetes mellitus without complications (ICD-10) COPD (chronic obstructive pulmonary disease) ?J44.9 - Chronic obstructive pulmonary disease, unspecified (ICD-10) <Chiquita Samayoa MD - Last Filed: 05/26/23 00:49> Social History: Social History Smoking Status: Former smoker Do you use any of these nicotine containing products: None Second hand tobacco smoke exposure: No How often do you have a drink containing alcohol: 2-4 times a month How often do you have six or more drinks on one occasion: Never AUDIT-C Alcohol total score: 2 Non-prescribed substance use: denies use service: No <Chiquita Samayoa MD - Last Filed: 05/26/23 00:49> Exam Const: Vital Signs, click to edit/add: Vital Signs - 24 hr 04/21/23 08:03 04/21/23 08:51 04/21/23 09:00 Temperature 98.6 F Pulse Rate 70 70 Pulse Rate [Pulse Oximeter] 85 Respiratory Rate 18 Blood Pressure Blood Pressure [Ri ght Upper Arm] 92/44 L Pulse Oximetry 94 92 92 Oxygen Delivery Me thod Room Air Oxygen Flow Rate 04/21/23 09:30 04/21/23 09:32 04/21/23 09:33 Temperature Pulse Rate 72 71 70 Pulse Rate [Pulse Oximeter] Respiratory Rate Blood Pressure 113/50 L Blood Pressure [Ri ght Upper Arm] Pulse Oximetry 94 92 91 Oxygen Delivery Me thod Oxygen Flow Rate 04/21/23 09:58 04/21/23 10:00 04/21/23 10:02 Temperature 98.3 F Pulse Rate 70 69 Pulse Rate [Pulse Oximeter] Respiratory Rate Blood Pressure 116/52 L Blood Pressure [Ri ght Upper Arm] Pulse Oximetry 93 92 Oxygen Delivery Me thod Oxygen Flow Rate 04/21/23 10:26 04/21/23 10:30 04/21/23 10:32 Temperature Pulse Rate 72 71 Pulse Rate [Pulse Oximeter] Respiratory Rate Blood Pressure 109/53 L Blood Pressure [Ri ght Upper Arm] Pulse Oximetry 93 92 92 Oxygen Delivery Me thod Nasal Cannula Nasal Cannula Nasal Cannula Oxygen Flow Rate 2 1 1 04/21/23 11:00 04/21/23 11:02 04/21/23 11:03 Temperature Pulse Rate 70 70 70 Pulse Rate [Pulse Oximeter] Respiratory Rate Blood Pressure 100/45 L Blood Pressure [Ri ght Upper Arm] Pulse Oximetry 93 93 92 Oxygen Delivery Me thod Nasal Cannula Nasal Cannula Nasal Cannula Oxygen Flow Rate 1 1 2 04/21/23 11:30 04/21/23 11:32 04/21/23 12:00 Temperature Pulse Rate 70 70 70 Pulse Rate [Pulse Oximeter] Respiratory Rate Blood Pressure 105/45 L Blood Pressure [Ri ght Upper Arm] Pulse Oximetry 99 99 99 Oxygen Delivery Me thod Nasal Cannula Nasal Cannula Nasal Cannula Oxygen Flow Rate 2 2 2 04/21/23 12:02 04/21/23 12:03 04/21/23 12:30 Temperature Pulse Rate 70 70 70 Pulse Rate [Pulse Oximeter] Respiratory Rate Blood Pressure 123/56 L Blood Pressure [Ri ght Upper Arm] Pulse Oximetry 99 99 98 Oxygen Delivery Me thod Nasal Cannula Nasal Cannula Nasal Cannula Oxygen Flow Rate 2 2 2 04/21/23 12:32 04/21/23 12:33 04/21/23 13:00 Temperature Pulse Rate 70 70 70 Pulse Rate [Pulse Oximeter] Respiratory Rate Blood Pressure 129/53 L Blood Pressure [Ri ght Upper Arm] Pulse Oximetry 98 99 98 Oxygen Delivery Me thod Nasal Cannula Nasal Cannula Nasal Cannula Oxygen Flow Rate 2 2 2 04/21/23 13:01 04/21/23 13:02 04/21/23 13:30 Temperature Pulse Rate 70 70 77 Pulse Rate [Pulse Oximeter] Respiratory Rate Blood Pressure 124/51 L Blood Pressure [Ri ght Upper Arm] Pulse Oximetry 98 97 96 Oxygen Delivery Me thod Nasal Cannula Nasal Cannula Nasal Cannula Oxygen Flow Rate 2 1 1 04/21/23 13:32 04/21/23 14:00 04/21/23 14:01 Temperature Pulse Rate 73 70 70 Pulse Rate [Pulse Oximeter] Respiratory Rate Blood Pressure 115/51 L 117/52 L Blood Pressure [Ri ght Upper Arm] Pulse Oximetry 96 94 94 Oxygen Delivery Me thod Nasal Cannula Nasal Cannula Nasal Cannula Oxygen Flow Rate 1 1 1 04/21/23 14:30 04/21/23 14:32 04/21/23 15:00 Temperature Pulse Rate 70 70 70 Pulse Rate [Pulse Oximeter] Respiratory Rate Blood Pressure 127/53 L Blood Pressure [Ri ght Upper Arm] Pulse Oximetry 94 95 97 Oxygen Delivery Me thod Nasal Cannula Nasal Cannula Nasal Cannula Oxygen Flow Rate 1 1 1 04/21/23 15:01 04/21/23 15:02 04/21/23 15:30 Temperature Pulse Rate 70 69 70 Pulse Rate [Pulse Oximeter] Respiratory Rate Blood Pressure 125/51 L Blood Pressure [Ri ght Upper Arm] Pulse Oximetry 95 96 96 Oxygen Delivery Me thod Nasal Cannula Nasal Cannula Nasal Cannula Oxygen Flow Rate 1 1 1 04/21/23 15:32 04/21/23 16:00 04/21/23 16:02 Temperature Pulse Rate 70 70 70 Pulse Rate [Pulse Oximeter] Respiratory Rate Blood Pressure 117/55 L 118/51 L Blood Pressure [Ri ght Upper Arm] Pulse Oximetry 96 96 96 Oxygen Delivery Me thod Nasal Cannula Nasal Cannula Nasal Cannula Oxygen Flow Rate 1 1 1 04/21/23 16:30 04/21/23 16:32 04/21/23 16:33 Temperature Pulse Rate 70 69 70 Pulse Rate [Pulse Oximeter] Respiratory Rate Blood Pressure 118/52 L Blood Pressure [Ri ght Upper Arm] Pulse Oximetry 96 97 94 Oxygen Delivery Me thod Nasal Cannula Nasal Cannula Nasal Cannula Oxygen Flow Rate 1 1 1 04/21/23 17:00 04/21/23 17:02 04/21/23 18:00 Temperature Pulse Rate 71 75 75 Pulse Rate [Pulse Oximeter] Respiratory Rate Blood Pressure 124/62 Blood Pressure [Ri ght Upper Arm] Pulse Oximetry 97 95 96 Oxygen Delivery Me thod Nasal Cannula Nasal Cannula Nasal Cannula Oxygen Flow Rate 1 1 1 04/21/23 18:02 04/21/23 19:00 04/21/23 19:02 Temperature Pulse Rate 82 79 73 Pulse Rate [Pulse Oximeter] Respiratory Rate Blood Pressure 104/71 129/51 L Blood Pressure [Ri ght Upper Arm] Pulse Oximetry 98 98 97 Oxygen Delivery Me thod Nasal Cannula Nasal Cannula Nasal Cannula Oxygen Flow Rate 1 1 1 04/21/23 19:03 04/21/23 20:00 04/21/23 20:02 Temperature Pulse Rate 72 71 71 Pulse Rate [Pulse Oximeter] Respiratory Rate Blood Pressure 131/64 Blood Pressure [Ri ght Upper Arm] Pulse Oximetry 97 97 96 Oxygen Delivery Me thod Nasal Cannula Nasal Cannula Nasal Cannula Oxygen Flow Rate 1 1 1 04/21/23 20:03 04/21/23 20:07 04/21/23 21:00 Temperature 97.8 F Pulse Rate 71 70 Pulse Rate [Pulse Oximeter] Respiratory Rate Blood Pressure Blood Pressure [Ri ght Upper Arm] Pulse Oximetry 98 98 Oxygen Delivery Me thod Nasal Cannula Nasal Cannula Oxygen Flow Rate 1 1 04/21/23 21:01 04/21/23 22:00 04/21/23 22:02 Temperature Pulse Rate 70 76 76 Pulse Rate [Pulse Oximeter] Respiratory Rate Blood Pressure 136/66 131/74 Blood Pressure [Ri ght Upper Arm] Pulse Oximetry 97 96 95 Oxygen Delivery Me thod Nasal Cannula Oxygen Flow Rate 1 04/21/23 23:00 04/21/23 23:02 Temperature Pulse Rate 71 70 Pulse Rate [Pulse Oximeter] Respiratory Rate Blood Pressure 126/62 Blood Pressure [Ri ght Upper Arm] Pulse Oximetry 96 93 Oxygen Delivery Me thod Oxygen Flow Rate Patient is alert, interactive, coughing, able speak. Sclera clear, face atraumatic. Voice is not hoarse. Neck supple. Lungs actually are clear, no wheezing or crackles at this time but some rhonchi. CV regular rate and rhythm, do not appreciate a murmur. Abdomen is soft, nontender, nondistended. No visible significant fluid overload. Moving all extremities. Notably blood pressure is low on arrival. He is not hypoxic. <Chiquita Samayoa MD - Last Filed: 05/26/23 00:49> Vital Signs, click to edit/add: Vital Signs - 24 hr 04/21/23 08:03 04/21/23 08:51 04/21/23 09:00 Temperature 98.6 F Pulse Rate 70 70 Pulse Rate [Pulse Oximeter] 85 Respiratory Rate 18 Blood Pressure Blood Pressure [Ri ght Upper Arm] 92/44 L Pulse Oximetry 94 92 92 Oxygen Delivery Me thod Room Air Oxygen Flow Rate 04/21/23 09:30 04/21/23 09:32 04/21/23 09:33 Temperature Pulse Rate 72 71 70 Pulse Rate [Pulse Oximeter] Respiratory Rate Blood Pressure 113/50 L Blood Pressure [Ri ght Upper Arm] Pulse Oximetry 94 92 91 Oxygen Delivery Me thod Oxygen Flow Rate 04/21/23 09:58 04/21/23 10:00 04/21/23 10:02 Temperature 98.3 F Pulse Rate 70 69 Pulse Rate [Pulse Oximeter] Respiratory Rate Blood Pressure 116/52 L Blood Pressure [Ri ght Upper Arm] Pulse Oximetry 93 92 Oxygen Delivery Me thod Oxygen Flow Rate 04/21/23 10:26 04/21/23 10:30 04/21/23 10:32 Temperature Pulse Rate 72 71 Pulse Rate [Pulse Oximeter] Respiratory Rate Blood Pressure 109/53 L Blood Pressure [Ri ght Upper Arm] Pulse Oximetry 93 92 92 Oxygen Delivery Me thod Nasal Cannula Nasal Cannula Nasal Cannula Oxygen Flow Rate 2 1 1 04/21/23 11:00 04/21/23 11:02 04/21/23 11:03 Temperature Pulse Rate 70 70 70 Pulse Rate [Pulse Oximeter] Respiratory Rate Blood Pressure 100/45 L Blood Pressure [Ri ght Upper Arm] Pulse Oximetry 93 93 92 Oxygen Delivery Me thod Nasal Cannula Nasal Cannula Nasal Cannula Oxygen Flow Rate 1 1 2 04/21/23 11:30 04/21/23 11:32 04/21/23 12:00 Temperature Pulse Rate 70 70 70 Pulse Rate [Pulse Oximeter] Respiratory Rate Blood Pressure 105/45 L Blood Pressure [Ri ght Upper Arm] Pulse Oximetry 99 99 99 Oxygen Delivery Me thod Nasal Cannula Nasal Cannula Nasal Cannula Oxygen Flow Rate 2 2 2 04/21/23 12:02 04/21/23 12:03 04/21/23 12:30 Temperature Pulse Rate 70 70 70 Pulse Rate [Pulse Oximeter] Respiratory Rate Blood Pressure 123/56 L Blood Pressure [Ri ght Upper Arm] Pulse Oximetry 99 99 98 Oxygen Delivery Me thod Nasal Cannula Nasal Cannula Nasal Cannula Oxygen Flow Rate 2 2 2 04/21/23 12:32 04/21/23 12:33 04/21/23 13:00 Temperature Pulse Rate 70 70 70 Pulse Rate [Pulse Oximeter] Respiratory Rate Blood Pressure 129/53 L Blood Pressure [Ri ght Upper Arm] Pulse Oximetry 98 99 98 Oxygen Delivery Me thod Nasal Cannula Nasal Cannula Nasal Cannula Oxygen Flow Rate 2 2 2 04/21/23 13:01 04/21/23 13:02 04/21/23 13:30 Temperature Pulse Rate 70 70 77 Pulse Rate [Pulse Oximeter] Respiratory Rate Blood Pressure 124/51 L Blood Pressure [Ri ght Upper Arm] Pulse Oximetry 98 97 96 Oxygen Delivery Me thod Nasal Cannula Nasal Cannula Nasal Cannula Oxygen Flow Rate 2 1 1 04/21/23 13:32 04/21/23 14:00 04/21/23 14:01 Temperature Pulse Rate 73 70 70 Pulse Rate [Pulse Oximeter] Respiratory Rate Blood Pressure 115/51 L 117/52 L Blood Pressure [Ri ght Upper Arm] Pulse Oximetry 96 94 94 Oxygen Delivery Me thod Nasal Cannula Nasal Cannula Nasal Cannula Oxygen Flow Rate 1 1 1 04/21/23 14:30 04/21/23 14:32 04/21/23 15:00 Temperature Pulse Rate 70 70 70 Pulse Rate [Pulse Oximeter] Respiratory Rate Blood Pressure 127/53 L Blood Pressure [Ri ght Upper Arm] Pulse Oximetry 94 95 97 Oxygen Delivery Me thod Nasal Cannula Nasal Cannula Nasal Cannula Oxygen Flow Rate 1 1 1 04/21/23 15:01 04/21/23 15:02 04/21/23 15:30 Temperature Pulse Rate 70 69 70 Pulse Rate [Pulse Oximeter] Respiratory Rate Blood Pressure 125/51 L Blood Pressure [Ri ght Upper Arm] Pulse Oximetry 95 96 96 Oxygen Delivery Me thod Nasal Cannula Nasal Cannula Nasal Cannula Oxygen Flow Rate 1 1 1 04/21/23 15:32 04/21/23 16:00 04/21/23 16:02 Temperature Pulse Rate 70 70 70 Pulse Rate [Pulse Oximeter] Respiratory Rate Blood Pressure 117/55 L 118/51 L Blood Pressure [Ri ght Upper Arm] Pulse Oximetry 96 96 96 Oxygen Delivery Me thod Nasal Cannula Nasal Cannula Nasal Cannula Oxygen Flow Rate 1 1 1 04/21/23 16:30 04/21/23 16:32 04/21/23 16:33 Temperature Pulse Rate 70 69 70 Pulse Rate [Pulse Oximeter] Respiratory Rate Blood Pressure 118/52 L Blood Pressure [Ri ght Upper Arm] Pulse Oximetry 96 97 94 Oxygen Delivery Me thod Nasal Cannula Nasal Cannula Nasal Cannula Oxygen Flow Rate 1 1 1 04/21/23 17:00 04/21/23 17:02 04/21/23 18:00 Temperature Pulse Rate 71 75 75 Pulse Rate [Pulse Oximeter] Respiratory Rate Blood Pressure 124/62 Blood Pressure [Ri ght Upper Arm] Pulse Oximetry 97 95 96 Oxygen Delivery Me thod Nasal Cannula Nasal Cannula Nasal Cannula Oxygen Flow Rate 1 1 1 04/21/23 18:02 04/21/23 19:00 04/21/23 19:02 Temperature Pulse Rate 82 79 73 Pulse Rate [Pulse Oximeter] Respiratory Rate Blood Pressure 104/71 129/51 L Blood Pressure [Ri ght Upper Arm] Pulse Oximetry 98 98 97 Oxygen Delivery Me thod Nasal Cannula Nasal Cannula Nasal Cannula Oxygen Flow Rate 1 1 1 04/21/23 19:03 04/21/23 20:00 04/21/23 20:02 Temperature Pulse Rate 72 71 71 Pulse Rate [Pulse Oximeter] Respiratory Rate Blood Pressure 131/64 Blood Pressure [Ri ght Upper Arm] Pulse Oximetry 97 97 96 Oxygen Delivery Me thod Nasal Cannula Nasal Cannula Nasal Cannula Oxygen Flow Rate 1 1 1 04/21/23 20:03 04/21/23 20:07 04/21/23 21:00 Temperature 97.8 F Pulse Rate 71 70 Pulse Rate [Pulse Oximeter] Respiratory Rate Blood Pressure Blood Pressure [Ri ght Upper Arm] Pulse Oximetry 98 98 Oxygen Delivery Me thod Nasal Cannula Nasal Cannula Oxygen Flow Rate 1 1 04/21/23 21:01 04/21/23 22:00 04/21/23 22:02 Temperature Pulse Rate 70 76 76 Pulse Rate [Pulse Oximeter] Respiratory Rate Blood Pressure 136/66 131/74 Blood Pressure [Ri ght Upper Arm] Pulse Oximetry 97 96 95 Oxygen Delivery Me thod Nasal Cannula Oxygen Flow Rate 1 04/21/23 23:00 04/21/23 23:02 Temperature Pulse Rate 71 70 Pulse Rate [Pulse Oximeter] Respiratory Rate Blood Pressure 126/62 Blood Pressure [Ri ght Upper Arm] Pulse Oximetry 96 93 Oxygen Delivery Me thod Oxygen Flow Rate <Bjorn Billy DO - Last Filed: 04/22/23 00:00> Documenting provider has reviewed patient's vital signs: yes <Chiquita Turcios MD - Last Filed: 05/26/23 00:49> Course Course ED Course: Patient's blood pressure is relatively low, concern for developing sepsis, continue monitoring. He is actively coughing, could be viral respiratory infections such as COVID or influenza is being considered, swab pending. This patient is also obviously at risk for pneumonia, will consider bacterial etiologies as well. Will have him on cardiac monitoring, pulse oximetry. Had some chest pain overnight, will get a troponin. EKG showing ventricular pacing. He does have significant fluid limitations, will initiate 100 mL bolus of normal saline. We will see where his white count is, this should be back relatively quickly. If there is concerns on the chest x-ray or white count, will have a low threshold to initiate IV antibiotics. Given his end-stage renal disease, does placement higher risk for MRSA as a possible infection. <Chiquita Samayoa MD - Last Filed: 05/26/23 00:49> Reevaluation(s) Time of Reevaluation #1: 10:19 <Chiquita Samayoa MD - Last Filed: 05/26/23 00:49> Reevaluation #1: Patient's blood pressure has improved, he is coughing some, still afebrile. Have initiated Rocephin, a azithromycin as well as vancomycin for community-acquired pneumonia. He does not meet criteria for sepsis at this time but there certainly is concern for this gentleman and will continue to monitor him closely. We are attempting transfer as he is going to need dialysis tomorrow, is not stable to discharge to home. Right now there are no Hospitals currently in the [facility] or at [place] that have capacity to except him. [facility] is looking at him for potential transfer. <Chiquita Samayoa MD - Last Filed: 05/26/23 00:49> Consultations Consultation #1: Spoke with [facility] access center, all their facilities are on [place]. This patient is an [facility] patient, they will wait list him. I will update as I have a more formal diagnosis, do not see that he needs units status as of yet but will obviously call back if that changes. 9:55 a.m.: [facility] has no capacity for med surge with dialysis, they are on divert. [facility], [facility] cannot except either. 10:42 a.m.: [facility] has declined patient, has no bed availability. 11:07 a.m.: Updated the access center at [facility], patient is at this time requiring a med surge bed with dialysis capacity. There still on divert but have him on their wait list. There is reported the 12 patients on the wait list. <Chiquita Samayoa MD - Last Filed: 05/26/23 00:49> Time: 08:45 <Chiquita Samayoa MD - Last Filed: 05/26/23 00:49> Vital Signs Vital signs: Initial Vital Signs Temperature 98.6 F 04/21/23 08:03 Temperature Source Temporal Artery Scan 04/21/23 08:03 Pulse Rate 85 04/21/23 08:03 Respiratory Rate 18 04/21/23 08:03 Blood Pressure 92/44 L 04/21/23 08:03 Blood Pressure Mean 60 L 04/21/23 08:03 Blood Pressure Position Supine 04/21/23 08:03 Pulse Oximetry 94 04/21/23 08:03 Oxygen Delivery Method Room Air 04/21/23 08:03 Vital Signs Temperature 98.6 F 04/21/23 08:03 Pulse Rate 85 04/21/23 08:03 Respiratory Rate 18 04/21/23 08:03 Blood Pressure 92/44 L 04/21/23 08:03 Pulse Oximetry 94 04/21/23 08:03 Oxygen Delivery Method Room Air 04/21/23 08:03 Temperature 97.8 F 04/21/23 20:07 Pulse Rate 70 04/22/23 08:01 Respiratory Rate 18 04/22/23 08:01 Blood Pressure 126/62 04/22/23 08:01 Pulse Oximetry 94 04/22/23 08:01 Oxygen Delivery Method Room Air 04/22/23 08:01 Oxygen Flow Rate 1 04/21/23 21:01 <Chiquita Samayoa MD - Last Filed: 05/26/23 00:49> Initial Vital Signs Temperature 98.6 F 04/21/23 08:03 Temperature Source Temporal Artery Scan 04/21/23 08:03 Pulse Rate 85 04/21/23 08:03 Respiratory Rate 18 04/21/23 08:03 Blood Pressure 92/44 L 04/21/23 08:03 Blood Pressure Mean 60 L 04/21/23 08:03 Blood Pressure Position Supine 04/21/23 08:03 Pulse Oximetry 94 04/21/23 08:03 Oxygen Delivery Method Room Air 04/21/23 08:03 Vital Signs Temperature 98.6 F 04/21/23 08:03 Pulse Rate 85 04/21/23 08:03 Respiratory Rate 18 04/21/23 08:03 Blood Pressure 92/44 L 04/21/23 08:03 Pulse Oximetry 94 04/21/23 08:03 Oxygen Delivery Method Room Air 04/21/23 08:03 Temperature 97.8 F 04/21/23 20:07 Pulse Rate 70 04/22/23 08:01 Respiratory Rate 18 04/22/23 08:01 Blood Pressure 126/62 04/22/23 08:01 Pulse Oximetry 94 04/22/23 08:01 Oxygen Delivery Method Room Air 04/22/23 08:01 Oxygen Flow Rate 1 04/21/23 21:01 <Bjorn Billy DO - Last Filed: 04/22/23 00:00> Medications Administered Medications: Discontinued Medications Generic Name Dose Route Start Last Admin Trade Name Christianq PRN Reason Stop Dose Admin Acetaminophen 500 mg 04/21/23 10:16 04/21/23 10:22 Acetaminophen 500 Mg Tablet PO 04/21/23 10:17 500 mg ONCE ONE Administration Aspirin 81 mg 04/22/23 09:00 04/22/23 09:05 Aspirin 81 Mg Tablet Ec PO Not Given DAILY KARL Azithromycin 250 mg 04/22/23 08:00 04/22/23 08:27 Azithromycin 250 Mg Tablet PO 04/22/23 08:01 250 mg ONCE ONE Administration Benzonatate 100 mg 04/21/23 19:39 04/21/23 20:49 Benzonatate 100 Mg Capsule PO 100 mg TID PRN Administration Cough Guaifenesin 100 mg 04/21/23 21:45 04/22/23 05:26 Guaifenesin 100 Mg/Ml Cup PO Not Given Q6H KARL Sodium Chloride 20 mls @ 120 mls/hr 04/21/23 08:44 04/21/23 10:49 0.9 % Sodium Chloride 250 Ml IV 04/21/23 08:53 Infused .Q10M KARL Infusion Ceftriaxone Sodium 1 gm/ 100 mls @ 200 mls/hr 04/21/23 08:57 04/21/23 09:45 Sodium Chloride IVPB 04/21/23 08:58 Infused ONCE ONE Infusion Azithromycin 500 mg/ Sodium 255 mls @ 255 mls/hr 04/21/23 08:58 04/21/23 11:11 Chloride IVPB 04/21/23 08:59 Infused ONCE ONE Infusion Vancomycin HCl 1,500 mg/ 515 mls @ 257.5 mls/hr 04/21/23 09:00 04/21/23 13:15 Sodium Chloride IVPB 04/21/23 09:01 Infused ONCE ONE Infusion Protocol Ceftriaxone Sodium 1 gm/ 100 mls @ 200 mls/hr 04/22/23 08:00 04/22/23 08:20 Sodium Chloride IVPB 04/22/23 08:01 Infused ONCE ONE Infusion Insulin Aspart 5 unit 04/21/23 18:13 04/21/23 19:13 Insulin Aspart 100 Unit/Ml SUBCUT 04/21/23 18:14 5 unit ONCE ONE Administration Insulin Aspart 18 unit 04/22/23 18:00 04/21/23 22:06 Insulin Aspart 100 Unit/Ml SUBCUT 18 unit QPM KARL Administration Prednisone 20 mg 04/21/23 09:40 04/21/23 10:03 Prednisone 10 Mg Tablet PO 04/21/23 09:41 20 mg ONCE ONE Administration <Chiquita Samayoa MD - Last Filed: 05/26/23 00:49> Discontinued Medications Generic Name Dose Route Start Last Admin Trade Name Freq PRN Reason Stop Dose Admin Acetaminophen 500 mg 04/21/23 10:16 04/21/23 10:22 Acetaminophen 500 Mg Tablet PO 04/21/23 10:17 500 mg ONCE ONE Administration Aspirin 81 mg 04/22/23 09:00 04/22/23 09:05 Aspirin 81 Mg Tablet Ec PO Not Given DAILY KARL Azithromycin 250 mg 04/22/23 08:00 04/22/23 08:27 Azithromycin 250 Mg Tablet PO 04/22/23 08:01 250 mg ONCE ONE Administration Benzonatate 100 mg 04/21/23 19:39 04/21/23 20:49 Benzonatate 100 Mg Capsule PO 100 mg TID PRN Administration Cough Guaifenesin 100 mg 04/21/23 21:45 04/22/23 05:26 Guaifenesin 100 Mg/Ml Cup PO Not Given Q6H KARL Sodium Chloride 20 mls @ 120 mls/hr 04/21/23 08:44 04/21/23 10:49 0.9 % Sodium Chloride 250 Ml IV 04/21/23 08:53 Infused .Q10M KARL Infusion Ceftriaxone Sodium 1 gm/ 100 mls @ 200 mls/hr 04/21/23 08:57 04/21/23 09:45 Sodium Chloride IVPB 04/21/23 08:58 Infused ONCE ONE Infusion Azithromycin 500 mg/ Sodium 255 mls @ 255 mls/hr 04/21/23 08:58 04/21/23 11 :11 Chloride IVPB 04/21/23 08:59 Infused ONCE ONE Infusion Vancomycin HCl 1,500 mg/ 515 mls @ 257.5 mls/hr 04/21/23 09:00 04/21/23 13:15 Sodium Chloride IVPB 04/21/23 09:01 Infused ONCE ONE Infusion Protocol Ceftriaxone Sodium 1 gm/ 100 mls @ 200 mls/hr 04/22/23 08:00 04/22/23 08:20 Sodium Chloride IVPB 04/22/23 08:01 Infused ONCE ONE Infusion Insulin Aspart 5 unit 04/21/23 18:13 04/21/23 19:13 Insulin Aspart 100 Unit/Ml SUBCUT 04/21/23 18:14 5 unit ONCE ONE Administration Insulin Aspart 18 unit 04/22/23 18:00 04/21/23 22:06 Insulin Aspart 100 Unit/Ml SUBCUT 18 unit QPM KARL Administration Prednisone 20 mg 04/21/23 09:40 04/21/23 10:03 Prednisone 10 Mg Tablet PO 04/21/23 09:41 20 mg ONCE ONE Administration <Bjorn Billy, DO - Last Filed: 04/22/23 00:00> Medical Decision Making MDM Narrative Medical decision making narrative: Patient signed out to me. No events occurred while i was the main provider. Signed out to Dr. Longo pending placement. <Bjorn Billy DO - Last Filed: 04/22/23 00:00> Lab Data Lab results reviewed: Yes I reviewed the patient's lab results <Chiquita Samayoa MD - Last Filed: 05/26/23 00:49> Labs: Lab Results 04/21/23 04/21/23 04/21/23 Range/Units 08:19 08:30 18:13 WBC 11.78 H (4.50-11.00) K/uL RBC 3.21 L (4.30-5.90) m/uL Hgb 10.4 L (13.5-17.5) gm/dL Hct 30.8 L (37.0-53.0) % MCV 96 (80-100) fL MCH 32 (26-34) pg MCHC 34 (32-36) gm/dL RDW Coeff of Jordy 14.0 (11.5-15.5) % Plt Count 130 L (140-440) K/uL Neut % (Auto) 89.7 H (42.0-72.0) % Lymph % (Auto) 3.4 L (20-44) % Florence % (Auto) 6.2 (0.0-11.0) % Eos % (Auto) 0.3 (0.0-7.0) % Baso % (Auto) 0.3 (0.0-3.0) % Neut # (Auto) 10.60 H (1.7-7.0) K/uL Lymph # (Auto) 0.40 L (0.90-2.90) K/uL Florence # (Auto) 0.70 (0.00-0.90) K/UL Eos # (Auto) 0.00 (0.00-0.50) K/uL Baso # (Auto) 0.00 (0.00-0.30) K/uL Abs Immat Gran (auto) 0.00 (0.00-0.30) K/uL Imm/Tot Granulo (auto) 0.1 % VBG pH 7.403 (7.32-7.43) VBG pCO2 47 (40-50) mmHG VBG pO2 37.5 (25-47) mmHG VBG HCO3 29 H (21-28) mmol/L Sodium 136 (135-149) mmol/L Potassium 4.8 (3.6-5.1) mmol/L Chloride 97 (96-114) mmol/L Carbon Dioxide 27 (20-32) mmol/L Anion Gap 12 (7-15) mEq/L BUN 41 H (7-30) mg/dL Creatinine 7.2 H (0.5-1.5) mg/dL Estimated Creat Clear 8.23 Estimated GFR 7 ml/min Glucose 179 H (60-115) mg/dL Lactate 1.8 (0.5-1.9) mmol/L Calcium 9.2 (8.4-10.6) mg/dL Total Bilirubin 0.8 (0.1-1.5) mg/dL AST 34 (12-35) U/L ALT 23 (4-50) U/L Alkaline Phosphatase 105 (40-150) U/L Troponin I 0.02 (0.01-0.04) ng/mL C-Reactive Protein 4.8 H (0.5-1.0) mg/dL NT-Pro-B Natriuret Pep 33171 pg/mL Total Protein 7.7 (6.0-8.3) g/dL Albumin 4.0 (3.3-5.0) g/dL Procalcitonin 1.15 H (<0.50) ng/mL SARS-CoV-2 (PCR) Negative SARS-CoV-2 (Negative) Influenza Type A (PCR) Negative PCR FLU A (Negative) Influenza Type B (PCR) Negative PCR FLU B (Negative) RSV (PCR) Negative PCR RSV (Negative) POC Glucose 185 H (60-115) mg/dl 04/21/23 Range/Units 20:53 WBC (4.50-11.00) K/uL RBC (4.30-5.90) m/uL Hgb (13.5-17.5) gm/dL Hct (37.0-53.0) % MCV (80-100) fL MCH (26-34) pg MCHC (32-36) gm/dL RDW Coeff of Jordy (11.5-15.5) % Plt Count (140-440) K/uL Neut % (Auto) (42.0-72.0) % Lymph % (Auto) (20-44) % Florence % (Auto) (0.0-11.0) % Eos % (Auto) (0.0-7.0) % Baso % (Auto) (0.0-3.0) % Neut # (Auto) (1.7-7.0) K/uL Lymph # (Auto) (0.90-2.90) K/uL Florence # (Auto) (0.00-0.90) K/UL Eos # (Auto) (0.00-0.50) K/uL Baso # (Auto) (0.00-0.30) K/uL Abs Immat Gran (auto) (0.00-0.30) K/uL Imm/Tot Granulo (auto) % VBG pH (7.32-7.43) VBG pCO2 (40-50) mmHG VBG pO2 (25-47) mmHG VBG HCO3 (21-28) mmol/L Sodium (135-149) mmol/L Potassium (3.6-5.1) mmol/L Chloride (96-114) mmol/L Carbon Dioxide (20-32) mmol/L Anion Gap (7-15) mEq/L BUN (7-30) mg/dL Creatinine (0.5-1.5) mg/dL Estimated Creat Clear Estimated GFR ml/min Glucose (60-115) mg/dL Lactate (0.5-1.9) mmol/L Calcium (8.4-10.6) mg/dL Total Bilirubin (0.1-1.5) mg/dL AST (12-35) U/L ALT (4-50) U/L Alkaline Phosphatase (40-150) U/L Troponin I (0.01-0.04) ng/mL C-Reactive Protein (0.5-1.0) mg/dL NT-Pro-B Natriuret Pep pg/mL Total Protein (6.0-8.3) g/dL Albumin (3.3-5.0) g/dL Procalcitonin (<0.50) ng/mL SARS-CoV-2 (PCR) (Negative) Influenza Type A (PCR) (Negative) Influenza Type B (PCR) (Negative) RSV (PCR) (Negative) POC Glucose 181 H (60-115) mg/dl <Chiquita Samayoa MD - Last Filed: 05/26/23 00:49> Lab Results 04/21/23 04/21/23 04/21/23 Range/Units 08:19 08:30 18:13 WBC 11.78 H (4.50-11.00) K/uL RBC 3.21 L (4.30-5.90) m/uL Hgb 10.4 L (13.5-17.5) gm/dL Hct 30.8 L (37.0-53.0) % MCV 96 (80-100) fL MCH 32 (26-34) pg MCHC 34 (32-36) gm/dL RDW Coeff of Jordy 14.0 (11.5-15.5) % Plt Count 130 L (140-440) K/uL Neut % (Auto) 89.7 H (42.0-72.0) % Lymph % (Auto) 3.4 L (20-44) % Florence % (Auto) 6.2 (0.0-11.0) % Eos % (Auto) 0.3 (0.0-7.0) % Baso % (Auto) 0.3 (0.0-3.0) % Neut # (Auto) 10.60 H (1.7-7.0) K/uL Lymph # (Auto) 0.40 L (0.90-2.90) K/uL Florence # (Auto) 0.70 (0.00-0.90) K/UL Eos # (Auto) 0.00 (0.00-0.50) K/uL Baso # (Auto) 0.00 (0.00-0.30) K/uL Abs Immat Gran (auto) 0.00 (0.00-0.30) K/uL Imm/Tot Granulo (auto) 0.1 % VBG pH 7.403 (7.32-7.43) VBG pCO2 47 (40-50) mmHG VBG pO2 37.5 (25-47) mmHG VBG HCO3 29 H (21-28) mmol/L Sodium 136 (135-149) mmol/L Potassium 4.8 (3.6-5.1) mmol/L Chloride 97 (96-114) mmol/L Carbon Dioxide 27 (20-32) mmol/L Anion Gap 12 (7-15) mEq/L BUN 41 H (7-30) mg/dL Creatinine 7.2 H (0.5-1.5) mg/dL Estimated Creat Clear 8.23 Estimated GFR 7 ml/min Glucose 179 H (60-115) mg/dL Lactate 1.8 (0.5-1.9) mmol/L Calcium 9.2 (8.4-10.6) mg/dL Total Bilirubin 0.8 (0.1-1.5) mg/dL AST 34 (12-35) U/L ALT 23 (4-50) U/L Alkaline Phosphatase 105 (40-150) U/L Troponin I 0.02 (0.01-0.04) ng/mL C-Reactive Protein 4.8 H (0.5-1.0) mg/dL NT-Pro-B Natriuret Pep 60585 pg/mL Total Protein 7.7 (6.0-8.3) g/dL Albumin 4.0 (3.3-5.0) g/dL Procalcitonin 1.15 H (<0.50) ng/mL SARS-CoV-2 (PCR) Negative SARS-CoV-2 (Negative) Influenza Type A (PCR) Negative PCR FLU A (Negative) Influenza Type B (PCR) Negative PCR FLU B (Negative) RSV (PCR) Negative PCR RSV (Negative) POC Glucose 185 H (60-115) mg/dl 04/21/23 Range/Units 20:53 WBC (4.50-11.00) K/uL RBC (4.30-5.90) m/uL Hgb (13.5-17.5) gm/dL Hct (37.0-53.0) % MCV (80-100) fL MCH (26-34) pg MCHC (32-36) gm/dL RDW Coeff of Jordy (11.5-15.5) % Plt Count (140-440) K/uL Neut % (Auto) (42.0-72.0) % Lymph % (Auto) (20-44) % Florence % (Auto) (0.0-11.0) % Eos % (Auto) (0.0-7.0) % Baso % (Auto) (0.0-3.0) % Neut # (Auto) (1.7-7.0) K/uL Lymph # (Auto) (0.90-2.90) K/uL Florence # (Auto) (0.00-0.90) K/UL Eos # (Auto) (0.00-0.50) K/uL Baso # (Auto) (0.00-0.30) K/uL Abs Immat Gran (auto) (0.00-0.30) K/uL Imm/Tot Granulo (auto) % VBG pH (7.32-7.43) VBG pCO2 (40-50) mmHG VBG pO2 (25-47) mmHG VBG HCO3 (21-28) mmol/L Sodium (135-149) mmol/L Potassium (3.6-5.1) mmol/L Chloride (96-114) mmol/L Carbon Dioxide (20-32) mmol/L Anion Gap (7-15) mEq/L BUN (7-30) mg/dL Creatinine (0.5-1.5) mg/dL Estimated Creat Clear Estimated GFR ml/min Glucose (60-115) mg/dL Lactate (0.5-1.9) mmol/L Calcium (8.4-10.6) mg/dL Total Bilirubin (0.1-1.5) mg/dL AST (12-35) U/L ALT (4-50) U/L Alkaline Phosphatase (40-150) U/L Troponin I (0.01-0.04) ng/mL C-Reactive Protein (0.5-1.0) mg/dL NT-Pro-B Natriuret Pep pg/mL Total Protein (6.0-8.3) g/dL Albumin (3.3-5.0) g/dL Procalcitonin (<0.50) ng/mL SARS-CoV-2 (PCR) (Negative) Influenza Type A (PCR) (Negative) Influenza Type B (PCR) (Negative) RSV (PCR) (Negative) POC Glucose 181 H (60-115) mg/dl <Bjorn Billy DO - Last Filed: 04/22/23 00:00> Imaging Data Chest x-ray: Attestation: I have reviewed the pertinent imaging results. <Chiquita Hurtado MD - Last Filed: 05/26/23 00:49> My impression: See no acute pulmonary infiltrate, see what appears to be pulmonary nodules, await radiology over-read. <Chiquita Samayoa MD - Last Filed: 05/26/23 00:49> Radiologist's impression: Patient: SHERYL SERRANO Facility:?[facility] Patient ID:?[id number] Site Patient ID:?[id number]. Site :?[id number] Study:?XRay Chest 1V PORTABLE-04/21/2023 9:13:03 AM Ordering Physician:Girish Porras Final Report: INDICATION: Hypotension, weak, cough COMPARISON: 07/27/2016, 02/06/2021. TECHNIQUE: 1 view chest radiograph. FINDINGS: Lung volumes are good. No focal consolidations. Multiple bilateral pulmonary nodules are in similar distribution compared to the previous exam. No pulmonary edema. No pleural effusion. No pneumothorax. No pneumomediastinum. Cardiomegaly unchanged. Right subclavian approach pacemaker. Median sternotomy wires. Atherosclerotic vascular calcifications.. Bones: Normal for age. IMPRESSION: No acute findings. Unchanged cardiomegaly. Unchanged pulmonary nodules. Dictated by Pricilla Loya MD @ 04/21/2023 9:14:57 AM (Electronic Signature) <Chiquita Samayoa MD - Last Filed: 05/26/23 00:49> ECG Data Attestation: I personally reviewed and interpreted this ECG as follows: ( Ventricular paced rhythm, 70s.) <Chiquita Samayoa MD - Last Filed: 05/26/23 00:49> Discharge Plan Discharge Clinical Impression: Acute hypotension, Community acquired pneumonia, End stage renal disease on dialysis <Chiquita Samayoa MD - Last Filed: 05/26/23 00:49> Patient Disposition: Home w/ Parent or Adult <Chiquita Samayoa MD - Last Filed: 05/26/23 00:49> Condition: Improved <Chiquita Samayoa MD - Last Filed: 05/26/23 00:49> Additional Instructions: Antibiotic 2 times daily, continue dialysis schedule, follow up with regular doctor next couple of days. Return to ED sooner problems or concerns. <Chiquita Samayoa MD - Last Filed: 05/26/23 00:49> Activity Level: Light activity <Chiquita Samayoa MD - Last Filed: 05/26/23 00:49> Light activity <Bjorn Billy DO - Last Filed: 04/22/23 00:00> Discharge Diet: Renal <Chiquita Samayoa MD - Last Filed: 05/26/23 00:49> Renal <Bjorn Billy DO - Last Filed: 04/22/23 00:00> Prescriptions: New doxycycline hyclate 100 mg capsule 100 mg PO BID Qty: 10 0RF No Action levothyroxine pravastatin hydrocodone-acetaminophen 5-325 mg tablet 1 tab PO Q4-6H PRN (Reason: pain) Qty: 10 0RF insulin aspart U-100 [Novolog FlexPen U-100 Insulin] 100 unit/mL (3 mL) insulin pen 18 unit subcut QPM albuteral 90 mcg Rx Instructions: 1-2 puffs 4 times a day as needed Spiriva Respimat 2.5 mcg/actuation mist 1 inh inhalation DAILY fluticasone propion-salmeterol [Wixela Inhub] 100-50 mcg/dose blister with device 1 inh inhalation BID Restasis Rx Instructions: 0.05 % 1 drop each eye every 12 hours. guaifenesin 100 mg/5 mL liquid 100 mg PO Q6H fluticasone furoate 50 mcg/actuation blister with device inhalation montelukast [Singulair] 10 mg tablet 10 mg PO DAILY pantoprozole 40 mg Rx Instructions: 1 tablet before meals every day nitroglycerin [Nitrostat] 0.4 mg tablet, sublingual 0.4 mg sublingual Q5-15M PRN Rx Instructions: do not exceed 3 doses per episode aspirin 81 mg capsule 81 mg PO DAILY loratadine [Claritin] 10 mg tablet 10 mg PO DAILY coenzyme Q10 [Co Q-10] 100 mg capsule 100 mg PO DAILY senna 8.6 mg capsule 8.6 mg PO DAILY acetaminophen [Tylenol Arthritis Pain] 650 mg tablet extended release 650 mg PO Q8H PRN <Chiquita Samayoa MD - Last Filed: 05/26/23 00:49> Follow Up/Referrals: Anna Marie Oglesby DO [Primary Care Provider] - <Chiquita Samayoa MD - Last Filed: 05/26/23 00:49> Stand Alone Forms: MyHealth Info Instructions <Chiquita Samayoa MD - Last Filed: 05/26/23 00:49>
--- NOTE | 2023-04-21 08:32 | CRLHL7_ITS ---
For Patients: As a result of the Century Cures Act, medical imaging exams and procedure reports are released immediately into your electronic medical record. You may view this report before your referring provider. If you have questions, please contact your health care provider. INDICATION: Hypotension, weak, cough COMPARISON: 07/27/2016, 02/06/2021. TECHNIQUE: 1 view chest radiograph. FINDINGS: Lung volumes are good. No focal consolidations. Multiple bilateral pulmonary nodules are in similar distribution compared to the previous exam. No pulmonary edema. No pleural effusion. No pneumothorax. No pneumomediastinum. Cardiomegaly unchanged. Right subclavian approach pacemaker. Median sternotomy wires. Atherosclerotic vascular calcifications.. Bones: Normal for age. IMPRESSION: No acute findings. Unchanged cardiomegaly. Unchanged pulmonary nodules. Dictated by Pricilla Loya MD @ 04/21/2023 9:14:57 AM (Electronically Signed)
[2023-04-21 08:45] LABS: HCO3 VBG 29 mmol/L (21-28); Lactate* 1.8 mmol/L (0.5-1.9); PCO2 VBG 47 mmHG (40-50); PO2 VBG 37.5 mmHG (25-47); pH VBG 7.403 (7.32-7.43)
[2023-04-21 08:47] LABS: Basophils Percent Auto 0.3 % (0.0-3.0); Eosinophils Percent Auto 0.3 % (0.0-7.0); Hematocrit 30.8 % (37.0-53.0); Hemoglobin* 10.4 gm/dL (13.5-17.5); Immature Granulocytes Pct Auto 0.1 %; Lymphocytes Percent Auto 3.4 % (20-44); Mean Corpuscular HGB Conc 34 gm/dL (32-36); Mean Corpuscular Hemoglobin 32 pg (26-34); Mean Corpuscular Volume 96 fL (80-100); Monocytes Percent Auto 6.2 % (0.0-11.0); Neutrophils Percent Auto 89.7 % (42.0-72.0); Platelet Count* 130 K/uL (140-440); Red Blood Count 3.21 m/uL (4.30-5.90); White Blood Count* 11.78 K/uL (4.50-11.00)
[2023-04-21 08:48] LABS: Slide Review Reflex No
[2023-04-21 09:04] LABS: Chloride* 97 mmol/L (96-114)
[2023-04-21 09:05] LABS: Sodium* 136 mmol/L (135-149)
[2023-04-21 09:07] LABS: Bilirubin Total* 0.8 mg/dL (0.1-1.5); Creatinine* 7.2 mg/dL (0.5-1.5); Est. Creatinine Clearance* 8.23; Estimated Glomerular Filt Rate 7 ml/min
[2023-04-21 09:08] LABS: Alanine Aminotransferase* 23 U/L (4-50); Alkaline Phosphatase* 105 U/L (40-150); Anion Gap 12 mEq/L (7-15); Aspartate Amino Transferase* 34 U/L (12-35); Blood Urea Nitrogen* 41 mg/dL (7-30); Calcium* 9.2 mg/dL (8.4-10.6); Carbon Dioxide* 27 mmol/L (20-32); Glucose* 179 mg/dL (60-115); Potassium* 4.8 mmol/L (3.6-5.1); Total Protein* 7.7 g/dL (6.0-8.3)
[2023-04-21 09:11] LABS: C Reactive Protein* 4.8 mg/dL (0.5-1.0)
[2023-04-21] MEDS: cefTRIAXone 1 GM in 0.9 % SODIUM CHLORIDE Mini-bag 100 ML IVPB (09:14)
[2023-04-21 09:17] LABS: PCR FLU A Negative PCR FLU A (Negative); PCR FLU B Negative PCR FLU B (Negative); PCR RSV Negative PCR RSV (Negative)
[2023-04-21 09:20] LABS: Troponin I* 0.02 ng/mL (0.01-0.04)
[2023-04-21 09:20] LABS: SARS PCR* Negative SARS-CoV-2 (Negative)
[2023-04-21 09:25] LABS: Procalcitonin* 1.15 ng/mL (<0.50)
[2023-04-21 09:34] LABS: NT Pro B Type NatriureticPept* 34200 pg/mL
[2023-04-21] MEDS: AZITHROMYCIN 500 MG in 0.9 % SODIUM CHLORIDE 250 ml 250 ML 255 MG IVPB (09:54)
[2023-04-21] MEDS: predniSONE 10 MG TABLET 20 MG PO (10:03)
--- NOTE | 2023-04-21 10:15 | ED.NURSE ---
Pt reports discomfort on L side of bottom, pt states pt has history of pressure injury issues. Pt repositioned at this time from supine to R lateral position, pillows placed behind pt's back for support. Pt complaining of headache as well, requesting Tylenol. updated about these findings and requests.
[2023-04-21] MEDS: ACETAMINOPHEN 500 MG TABLET PO (10:22)
--- NOTE | 2023-04-21 10:25 | ED.NURSE ---
Pt reports feeling SOB and requests supplemental oxygen for comfort. O2 sats ~92-93% on room air. Pt placed on 1L O2 NC. ORDONEZ notified.
--- NOTE | 2023-04-21 10:50 | ED.NURSE ---
Pt complaining of discomfort in R AC IV site. IV site assessed, asymptomatic, patent, no pain when flushing IV. Repositioned BP cuff that was near IV site. Pt repositioned to left lateral position, pillows behind back for support. Call light within reach.
--- NOTE | 2023-04-21 11:14 | ED.NURSE ---
Pt O2 sats trending ~90% on 1L O2. Titrated up to 2L O2.
--- NOTE | 2023-04-21 12:22 | ED.GENADULT ---
HPI - General Adult General Chief complaint: Cough Stated complaint: chest pains Time Seen by Provider: 04/21/23 08:23 Source: patient, EMS and RN notes reviewed Mode of arrival: EMS Limitations: no limitations History of Present Illness HPI narrative: Dr. Aguero assumed care of this patient at 12:22 p.m. on 04/21. 83-year-old gentleman from home with his . He has a past medical history of end-stage renal disease on dialysis, Thursday, dialyzed yesterday. He also has a chronic fluid restriction of 32 oz of liquid per 24 hours. Also past medical history of diabetes, possible COPD, or, more likely pulmonary asbestosis. He has had recent falls at home. Since yesterday has developed generalized weakness ER. He has also developed a cough overnight. Overnight he told his he was having some chest pain but he is not having chest pain today. Workup per Dr. Benson reveals high suspicion for community-acquired pneumonia. Patient is not hypoxic. COVID negative, influenza negative. Chest x-ray shows no acute findings but lung exam is suspicious for pneumonia. He was initially borderline hypotensive with a systolic in the 90s. After a 100 mL fluid bolus and receiving fluids with his IV antibiotics blood pressures come up to 110-120 systolic. Labs show mild leukocytosis with a white count of 11.8 and a neutrophil predominance-85 9% neutrophils. Hemoglobin 10.4, platelet count mildly low at 130. Metabolic profile shows sodium 136, potassium 4.8. BUN 41, creatinine 7.2. Glucose 179. Procalcitonin is elevated at 1.1. CRP elevated at 4.8. Venous lactic acid is normal at 1.8. He is treated for community-acquired pneumonia. Because of dialysis he has risk factors for MRSA. He has received Rocephin 1 g, Azithromycin 1 g, and a weight based bolus of vancomycin. Although he is hemodynamically stable and not hypoxic with his generalized weakness and medical comorbidities he will require admission. Since he is a dialysis patient he cannot be admitted here at [facility] where we do not have dialysis capability. He normally gets his dialysis/nephrology care through the [facility]. He is on a wait list for the [facility]. However unlikely that they would have an available bed for him today. We have contacted multiple outside facilities, but no other beds are available in the region. Therefore he will board here in the ER for hemodynamic monitoring until a bed can be available. Related Data Home Medications Medication Instructions Recorded Confirmed levothyroxine 12/12/22 pravastatin 12/12/22 Restasis 12/27/22 acetaminophen 650 mg 650 mg PO Q8H PRN 12/27/22 12/27/22 tablet,extended release (Tylenol Arthritis Pain) albuteral 12/27/22 aspirin 81 mg capsule 81 mg PO DAILY 12/27/22 12/27/22 coenzyme Q10 100 mg capsule (Co 100 mg PO DAILY 12/27/22 12/27/22 Q-10) fluticasone 100 mcg-salmeterol 50 1 inh inhalation BID 12/27/22 12/27/22 mcg/dose blistr powdr for inhalation (Wixela Inhub) fluticasone furoate 50 inhalation 12/27/22 mcg/actuation blister powder for inhalation guaifenesin 100 mg/5 mL oral liquid 100 mg PO Q6H coughing 12/27/22 12/27/22 insulin aspart U-100 100 unit/mL 18 unit subcut QPM 12/27/22 12/27/22 (3 mL) subcutaneous pen (Novolog FlexPen U-100 Insulin aspart) loratadine 10 mg tablet (Claritin) 10 mg PO DAILY 12/27/22 12/27/22 montelukast 10 mg tablet 10 mg PO DAILY 12/27/22 12/27/22 (Singulair) nitroglycerin 0.4 mg sublingual 0.4 mg sublingual Q5-15M PRN 12/27/22 12/27/22 tablet (Nitrostat) pantoprozole 12/27/22 sennosides 8.6 mg capsule (senna) 8.6 mg PO DAILY 12/27/22 12/27/22 tiotropium bromide 2.5 1 inh inhalation DAILY 12/27/22 12/27/22 mcg/actuation mist for inhalation (Spiriva Respimat) Previous Rx's Medication Instructions Recorded hydrocodone 5 mg-acetaminophen 325 1 tab PO Q4-6H PRN pain #10 tabs 12/12/22 mg tablet Allergies Allergy/AdvReac Type Severity Reaction Status Date / Time lisinopril Allergy Verified 12/27/22 15:54 metoclopramide [From Reglan] Allergy Verified 12/27/22 15:54 omeprazole Allergy Verified 12/27/22 15:54 hydrocodone/acetaminophen Allergy Uncoded 12/27/22 15:54 lipitor Allergy Uncoded 12/27/22 15:54 [facility] Medical History DM (diabetes mellitus), type 2 ?E11.9 - Type 2 diabetes mellitus without complications (ICD-10) COPD (chronic obstructive pulmonary disease) ?J44.9 - Chronic obstructive pulmonary disease, unspecified (ICD-10) Social History Smoking Status: Former smoker Do you use any of these nicotine containing products: None Second hand tobacco smoke exposure: No How often do you have a drink containing alcohol: 2-4 times a month How often do you have six or more drinks on one occasion: Never AUDIT-C Alcohol total score: 2 Non-prescribed substance use: denies use service: No Exam Const: Vital Signs, click to edit/add: Vital Signs - 24 hr 04/21/23 08:03 04/21/23 08:51 04/21/23 09:00 Temperature 98.6 F Pulse Rate 70 70 Pulse Rate [Pulse Oximeter] 85 Respiratory Rate 18 Blood Pressure Blood Pressure [Ri ght Upper Arm] 92/44 L Pulse Oximetry 94 92 92 Oxygen Delivery Me thod Room Air Oxygen Flow Rate 04/21/23 09:30 04/21/23 09:32 04/21/23 09:33 Temperature Pulse Rate 72 71 70 Pulse Rate [Pulse Oximeter] Respiratory Rate Blood Pressure 113/50 L Blood Pressure [Ri ght Upper Arm] Pulse Oximetry 94 92 91 Oxygen Delivery Me thod Oxygen Flow Rate 04/21/23 09:58 04/21/23 10:00 04/21/23 10:02 Temperature 98.3 F Pulse Rate 70 69 Pulse Rate [Pulse Oximeter] Respiratory Rate Blood Pressure 116/52 L Blood Pressure [Ri ght Upper Arm] Pulse Oximetry 93 92 Oxygen Delivery Me thod Oxygen Flow Rate 04/21/23 10:26 04/21/23 10:30 04/21/23 10:32 Temperature Pulse Rate 72 71 Pulse Rate [Pulse Oximeter] Respiratory Rate Blood Pressure 109/53 L Blood Pressure [Ri ght Upper Arm] Pulse Oximetry 93 92 92 Oxygen Delivery Me thod Nasal Cannula Nasal Cannula Nasal Cannula Oxygen Flow Rate 2 1 1 04/21/23 11:00 04/21/23 11:02 04/21/23 11:03 Temperature Pulse Rate 70 70 70 Pulse Rate [Pulse Oximeter] Respiratory Rate Blood Pressure 100/45 L Blood Pressure [Ri ght Upper Arm] Pulse Oximetry 93 93 92 Oxygen Delivery Me thod Nasal Cannula Nasal Cannula Nasal Cannula Oxygen Flow Rate 1 1 2 04/21/23 11:30 04/21/23 11:32 04/21/23 12:00 Temperature Pulse Rate 70 70 70 Pulse Rate [Pulse Oximeter] Respiratory Rate Blood Pressure 105/45 L Blood Pressure [Ri ght Upper Arm] Pulse Oximetry 99 99 99 Oxygen Delivery Me thod Nasal Cannula Nasal Cannula Nasal Cannula Oxygen Flow Rate 2 2 2 04/21/23 12:02 04/21/23 12:03 04/21/23 12:30 Temperature Pulse Rate 70 70 70 Pulse Rate [Pulse Oximeter] Respiratory Rate Blood Pressure 123/56 L Blood Pressure [Ri ght Upper Arm] Pulse Oximetry 99 99 98 Oxygen Delivery Me thod Nasal Cannula Nasal Cannula Nasal Cannula Oxygen Flow Rate 2 2 2 04/21/23 12:32 04/21/23 12:33 04/21/23 13:00 Temperature Pulse Rate 70 70 70 Pulse Rate [Pulse Oximeter] Respiratory Rate Blood Pressure 129/53 L Blood Pressure [Ri ght Upper Arm] Pulse Oximetry 98 99 98 Oxygen Delivery Me thod Nasal Cannula Nasal Cannula Nasal Cannula Oxygen Flow Rate 2 2 2 04/21/23 13:01 04/21/23 13:02 04/21/23 13:30 Temperature Pulse Rate 70 70 77 Pulse Rate [Pulse Oximeter] Respiratory Rate Blood Pressure 124/51 L Blood Pressure [Ri ght Upper Arm] Pulse Oximetry 98 97 96 Oxygen Delivery Me thod Nasal Cannula Nasal Cannula Nasal Cannula Oxygen Flow Rate 2 1 1 04/21/23 13:32 04/21/23 14:00 04/21/23 14:01 Temperature Pulse Rate 73 70 70 Pulse Rate [Pulse Oximeter] Respiratory Rate Blood Pressure 115/51 L 117/52 L Blood Pressure [Ri ght Upper Arm] Pulse Oximetry 96 94 94 Oxygen Delivery Me thod Nasal Cannula Nasal Cannula Nasal Cannula Oxygen Flow Rate 1 1 1 04/21/23 14:30 04/21/23 14:32 04/21/23 15:00 Temperature Pulse Rate 70 70 70 Pulse Rate [Pulse Oximeter] Respiratory Rate Blood Pressure 127/53 L Blood Pressure [Ri ght Upper Arm] Pulse Oximetry 94 95 97 Oxygen Delivery Me thod Nasal Cannula Nasal Cannula Nasal Cannula Oxygen Flow Rate 1 1 1 04/21/23 15:01 04/21/23 15:02 04/21/23 15:30 Temperature Pulse Rate 70 69 70 Pulse Rate [Pulse Oximeter] Respiratory Rate Blood Pressure 125/51 L Blood Pressure [Ri ght Upper Arm] Pulse Oximetry 95 96 96 Oxygen Delivery Me thod Nasal Cannula Nasal Cannula Nasal Cannula Oxygen Flow Rate 1 1 1 04/21/23 15:32 04/21/23 16:00 04/21/23 16:02 Temperature Pulse Rate 70 70 70 Pulse Rate [Pulse Oximeter] Respiratory Rate Blood Pressure 117/55 L 118/51 L Blood Pressure [Ri ght Upper Arm] Pulse Oximetry 96 96 96 Oxygen Delivery Me thod Nasal Cannula Nasal Cannula Nasal Cannula Oxygen Flow Rate 1 1 1 04/21/23 16:30 04/21/23 16:32 04/21/23 16:33 Temperature Pulse Rate 70 69 70 Pulse Rate [Pulse Oximeter] Respiratory Rate Blood Pressure 118/52 L Blood Pressure [Ri ght Upper Arm] Pulse Oximetry 96 97 94 Oxygen Delivery Me thod Nasal Cannula Nasal Cannula Nasal Cannula Oxygen Flow Rate 1 1 1 04/21/23 17:00 04/21/23 17:02 04/21/23 18:00 Temperature Pulse Rate 71 75 75 Pulse Rate [Pulse Oximeter] Respiratory Rate Blood Pressure 124/62 Blood Pressure [Ri ght Upper Arm] Pulse Oximetry 97 95 96 Oxygen Delivery Me thod Nasal Cannula Nasal Cannula Nasal Cannula Oxygen Flow Rate 1 1 1 04/21/23 18:02 04/21/23 19:00 04/21/23 19:02 Temperature Pulse Rate 82 79 73 Pulse Rate [Pulse Oximeter] Respiratory Rate Blood Pressure 104/71 129/51 L Blood Pressure [Ri ght Upper Arm] Pulse Oximetry 98 98 97 Oxygen Delivery Me thod Nasal Cannula Nasal Cannula Nasal Cannula Oxygen Flow Rate 1 1 1 04/21/23 19:03 04/21/23 20:00 04/21/23 20:02 Temperature Pulse Rate 72 71 71 Pulse Rate [Pulse Oximeter] Respiratory Rate Blood Pressure 131/64 Blood Pressure [Ri ght Upper Arm] Pulse Oximetry 97 97 96 Oxygen Delivery Me thod Nasal Cannula Nasal Cannula Nasal Cannula Oxygen Flow Rate 1 1 1 04/21/23 20:03 04/21/23 20:07 Temperature 97.8 F Pulse Rate 71 Pulse Rate [Pulse Oximeter] Respiratory Rate Blood Pressure Blood Pressure [Ri ght Upper Arm] Pulse Oximetry 98 Oxygen Delivery Me thod Nasal Cannula Oxygen Flow Rate 1 Course Vital Signs Vital signs: Initial Vital Signs Temperature 98.6 F 04/21/23 08:03 Temperature Source Temporal Artery Scan 04/21/23 08:03 Pulse Rate 85 04/21/23 08:03 Respiratory Rate 18 04/21/23 08:03 Blood Pressure 92/44 L 04/21/23 08:03 Blood Pressure Mean 60 L 04/21/23 08:03 Blood Pressure Position Supine 04/21/23 08:03 Pulse Oximetry 94 04/21/23 08:03 Oxygen Delivery Method Room Air 04/21/23 08:03 Vital Signs Temperature 98.6 F 04/21/23 08:03 Pulse Rate 85 04/21/23 08:03 Respiratory Rate 18 04/21/23 08:03 Blood Pressure 92/44 L 04/21/23 08:03 Pulse Oximetry 94 04/21/23 08:03 Oxygen Delivery Method Room Air 04/21/23 08:03 Temperature 97.8 F 04/21/23 20:07 Pulse Rate 71 04/21/23 20:03 Respiratory Rate 18 04/21/23 08:03 Blood Pressure 131/64 04/21/23 20:02 Pulse Oximetry 98 04/21/23 20:03 Oxygen Delivery Method Nasal Cannula 04/21/23 20:03 Oxygen Flow Rate 1 04/21/23 20:03 Medications Administered Medications: Generic Name Dose Route Start Last Admin Trade Name Freq PRN Reason Stop Dose Admin Benzonatate 100 mg 04/21/23 19:39 04/21/23 20:49 Benzonatate 100 Mg Capsule PO 100 mg TID PRN Administration Cough Insulin Aspart 18 unit 04/22/23 18:00 04/21/23 22:06 Insulin Aspart 100 Unit/Ml SUBCUT 18 unit QPM KARL Administration Discontinued Medications Generic Name Dose Route Start Last Admin Trade Name Freq PRN Reason Stop Dose Admin Acetaminophen 500 mg 04/21/23 10:16 04/21/23 10:22 Acetaminophen 500 Mg Tablet PO 04/21/23 10:17 500 mg ONCE ONE Administration Sodium Chloride 20 mls @ 120 mls/hr 04/21/23 08:44 04/21/23 10:49 0.9 % Sodium Chloride 250 Ml IV 04/21/23 08:53 Infused .Q10M KARL Infusion Ceftriaxone Sodium 1 gm/ 100 mls @ 200 mls/hr 04/21/23 08:57 04/21/23 09:45 Sodium Chloride IVPB 04/21/23 08:58 Infused ONCE ONE Infusion Azithromycin 500 mg/ Sodium 255 mls @ 255 mls/hr 04/21/23 08:58 04/21/23 11:11 Chloride IVPB 04/21/23 08:59 Infused ONCE ONE Infusion Vancomycin HCl 1,500 mg/ 515 mls @ 257.5 mls/hr 04/21/23 09:00 04/21/23 13:15 Sodium Chloride IVPB 04/21/23 09:01 Infused ONCE ONE Infusion Protocol Insulin Aspart 5 unit 04/21/23 18:13 04/21/23 19:13 Insulin Aspart 100 Unit/Ml SUBCUT 04/21/23 18:14 5 unit ONCE ONE Administration Prednisone 20 mg 04/21/23 09:40 04/21/23 10:03 Prednisone 10 Mg Tablet PO 04/21/23 09:41 20 mg ONCE ONE Administration Medical Decision Making MDM Narrative Medical decision making narrative: Care assumed by Dr. Aguero at shift change at 12:00 p.m.. 83-year-old gentleman with a history of hypertension and diabetes on end-stage renal disease on dialysis Thursday, Thursday, and Thursday. Also history of possible COPD or may be pulmonary asbestosis. He had presented to the ER this morning for evaluation of cough, generalized weakness, and episode of chest pain overnight, and fall recently but not last night. Workup is suspicious for community-acquired pneumonia based on coughing. He is COVID negative. Oxygen is stable on 1 L nasal cannula. Initial blood pressure was low around 80 or 90 systolic. Because of his baseline and renal insufficiency and a slight fluid restriction he did receive a very small fluid bolus of 100 mL as well as fluids with his IV antibiotics and with that blood pressure is normalized. Blood pressure is, P into the 1 teens. Chest x-ray does not show any definitive pneumonia but suspicion is for community-acquired pneumonia based on elevated white count, elevated CRP, elevated procalcitonin, negative COVID. He has received Rocephin, Azithromycin, vancomycin. BUN is 41, creatinine is 2.2. Glucose is 174. He would be due for dialysis tomorrow, on Thursday. He is currently on the [facility] wait list. There will likely be no beds available today. Therefore help for here in the ER. We undertook workup to look for other facilities in our region that might be able to meet this patient's needs, specifically a medical hospital bed to accommodate treatment for pneumonia at dialysis capable hospital. There are no beds at any facility in the [place] [facility] including [facility], [facility], [facility], [facility], [facility]. We were able to potentially get a bed at [facility] in to the, however the patient and his family did not want to transfer that far. They also declined transfer to [facility]. The patient remained hemodynamically stable on multiple bedside rechecks by myself. He was having cough so I ordered Tessalon. I did review his home medications. Most of lumbar not reconciled so doses and frequency of administration is unclear. I tried to go through his med rec in order his home Lantus and other essential home meds. Signed out to my partner, Dr. Billy, at 10:30 p.m.. Lab Data Labs: Lab Results 04/21/23 04/21/23 04/21/23 Range/Units 08:19 08:30 18:13 WBC 11.78 H (4.50-11.00) K/uL RBC 3.21 L (4.30-5.90) m/uL Hgb 10.4 L (13.5-17.5) gm/dL Hct 30.8 L (37.0-53.0) % MCV 96 (80-100) fL MCH 32 (26-34) pg MCHC 34 (32-36) gm/dL RDW Coeff of Jordy 14.0 (11.5-15.5) % Plt Count 130 L (140-440) K/uL Neut % (Auto) 89.7 H (42.0-72.0) % Lymph % (Auto) 3.4 L (20-44) % [place] % (Auto) 6.2 (0.0-11.0) % Eos % (Auto) 0.3 (0.0-7.0) % Baso % (Auto) 0.3 (0.0-3.0) % Neut # (Auto) 10.60 H (1.7-7.0) K/uL Lymph # (Auto) 0.40 L (0.90-2.90) K/uL [place] # (Auto) 0.70 (0.00-0.90) K/UL Eos # (Auto) 0.00 (0.00-0.50) K/uL Baso # (Auto) 0.00 (0.00-0.30) K/uL Abs Immat Gran (auto) 0.00 (0.00-0.30) K/uL Imm/Tot Granulo (auto) 0.1 % VBG pH 7.403 (7.32-7.43) VBG pCO2 47 (40-50) mmHG VBG pO2 37.5 (25-47) mmHG VBG HCO3 29 H (21-28) mmol/L Sodium 136 (135-149) mmol/L Potassium 4.8 (3.6-5.1) mmol/L Chloride 97 (96-114) mmol/L Carbon Dioxide 27 (20-32) mmol/L Anion Gap 12 (7-15) mEq/L BUN 41 H (7-30) mg/dL Creatinine 7.2 H (0.5-1.5) mg/dL Estimated Creat Clear 8.23 Estimated GFR 7 ml/min Glucose 179 H (60-115) mg/dL Lactate 1.8 (0.5-1.9) mmol/L Calcium 9.2 (8.4-10.6) mg/dL Total Bilirubin 0.8 (0.1-1.5) mg/dL AST 34 (12-35) U/L ALT 23 (4-50) U/L Alkaline Phosphatase 105 (40-150) U/L Troponin I 0.02 (0.01-0.04) ng/mL C-Reactive Protein 4.8 H (0.5-1.0) mg/dL NT-Pro-B Natriuret Pep 03301 pg/mL Total Protein 7.7 (6.0-8.3) g/dL Albumin 4.0 (3.3-5.0) g/dL Procalcitonin 1.15 H (<0.50) ng/mL SARS-CoV-2 (PCR) Negative SARS-CoV-2 (Negative) Influenza Type A (PCR) Negative PCR FLU A (Negative) Influenza Type B (PCR) Negative PCR FLU B (Negative) RSV (PCR) Negative PCR RSV (Negative) POC Glucose 185 H (60-115) mg/dl 04/21/23 Range/Units 20:53 WBC (4.50-11.00) K/uL RBC (4.30-5.90) m/uL Hgb (13.5-17.5) gm/dL Hct (37.0-53.0) % MCV (80-100) fL MCH (26-34) pg MCHC (32-36) gm/dL RDW Coeff of Jordy (11.5-15.5) % Plt Count (140-440) K/uL Neut % (Auto) (42.0-72.0) % Lymph % (Auto) (20-44) % [place] % (Auto) (0.0-11.0) % Eos % (Auto) (0.0-7.0) % Baso % (Auto) (0.0-3.0) % Neut # (Auto) (1.7-7.0) K/uL Lymph # (Auto) (0.90-2.90) K/uL [place] # (Auto) (0.00-0.90) K/UL Eos # (Auto) (0.00-0.50) K/uL Baso # (Auto) (0.00-0.30) K/uL Abs Immat Gran (auto) (0.00-0.30) K/uL Imm/Tot Granulo (auto) % VBG pH (7.32-7.43) VBG pCO2 (40-50) mmHG VBG pO2 (25-47) mmHG VBG HCO3 (21-28) mmol/L Sodium (135-149) mmol/L Potassium (3.6-5.1) mmol/L Chloride (96-114) mmol/L Carbon Dioxide (20-32) mmol/L Anion Gap (7-15) mEq/L BUN (7-30) mg/dL Creatinine (0.5-1.5) mg/dL Estimated Creat Clear Estimated GFR ml/min Glucose (60-115) mg/dL Lactate (0.5-1.9) mmol/L Calcium (8.4-10.6) mg/dL Total Bilirubin (0.1-1.5) mg/dL AST (12-35) U/L ALT (4-50) U/L Alkaline Phosphatase (40-150) U/L Troponin I (0.01-0.04) ng/mL C-Reactive Protein (0.5-1.0) mg/dL NT-Pro-B Natriuret Pep pg/mL Total Protein (6.0-8.3) g/dL Albumin (3.3-5.0) g/dL Procalcitonin (<0.50) ng/mL SARS-CoV-2 (PCR) (Negative) Influenza Type A (PCR) (Negative) Influenza Type B (PCR) (Negative) RSV (PCR) (Negative) POC Glucose 181 H (60-115) mg/dl Discharge Plan Discharge Clinical Impression: Acute hypotension, Community acquired pneumonia, End stage renal disease on dialysis Prescriptions: No Action levothyroxine pravastatin hydrocodone-acetaminophen 5-325 mg tablet 1 tab PO Q4-6H PRN (Reason: pain) Qty: 10 0RF insulin aspart U-100 [Novolog FlexPen U-100 Insulin] 100 unit/mL (3 mL) insulin pen 18 unit subcut QPM albuteral 90 mcg Rx Instructions: 1-2 puffs 4 times a day as needed Spiriva Respimat 2.5 mcg/actuation mist 1 inh inhalation DAILY fluticasone propion-salmeterol [Wixela Inhub] 100-50 mcg/dose blister with device 1 inh inhalation BID Restasis Rx Instructions: 0.05 % 1 drop each eye every 12 hours. guaifenesin 100 mg/5 mL liquid 100 mg PO Q6H fluticasone furoate 50 mcg/actuation blister with device inhalation montelukast [Singulair] 10 mg tablet 10 mg PO DAILY pantoprozole 40 mg Rx Instructions: 1 tablet before meals every day nitroglycerin [Nitrostat] 0.4 mg tablet, sublingual 0.4 mg sublingual Q5-15M PRN Rx Instructions: do not exceed 3 doses per episode aspirin 81 mg capsule 81 mg PO DAILY loratadine [Claritin] 10 mg tablet 10 mg PO DAILY coenzyme Q10 [Co Q-10] 100 mg capsule 100 mg PO DAILY senna 8.6 mg capsule 8.6 mg PO DAILY acetaminophen [Tylenol Arthritis Pain] 650 mg tablet extended release 650 mg PO Q8H PRN Follow Up/Referrals: Anna Marie Oglesby DO [Primary Care Provider] -
--- NOTE | 2023-04-21 13:30 | ED.NURSE ---
Pt boosted and repositioned in bed.
--- NOTE | 2023-04-21 13:40 | ED.NURSE ---
Pt titrated down to 1L O2.
--- NOTE | 2023-04-21 16:44 | ED.NURSE ---
Pt boosted in bed and repositioned to right lateral position, pillows behind back for support.
--- NOTE | 2023-04-21 17:03 | ED.NURSE ---
Pt provided with small meal.
[2023-04-21 18:39] LABS: Glucose, Point-of-Care* 185 mg/dl (60-115)
[2023-04-21] MEDS: INSULIN ASPART 100 UNIT/ML SUBCUT (19:13)
[2023-04-21] MEDS: BENZONATATE 100 MG CAPSULE PO (20:49)
[2023-04-21 20:54] LABS: Glucose, Point-of-Care* 181 mg/dl (60-115)
--- NOTE | 2023-04-21 21:45 | ED.NURSE ---
Pt provided with larger bed from the med/surg unit for the evening. Pt able to transfer from ER bed to M/S bed using trapeze bar with minimal assist from staff.
--- NOTE | 2023-04-21 21:50 | ED.NURSE ---
Supplemental O2 titrated to room air.
[2023-04-21] MEDS: INSULIN ASPART 100 UNIT/ML 18 UNIT SUBCUT (22:06)
--- NOTE | 2023-04-21 22:15 | ED.NURSE ---
Pt accepted at [facility], pt's states that facility is too far away and pt cannot transfer there. and [facility] updated.
[2023-04-21] MEDS: guaiFENesin 100 MG/ML CUP PO (22:42)
[2023-04-22] VITALS (16 sets, daily range): BP systolic 115–130; BP diastolic 50–71; PULSE 70–73; RESP 18; O2SAT 92–97
[2023-04-22] MEDS: cefTRIAXone 1 GM in 0.9 % SODIUM CHLORIDE Mini-bag 100 ML IVPB (07:50)
[2023-04-22] MEDS: AZITHROMYCIN 250 MG TABLET PO (08:27)
--- NOTE | 2023-04-22 09:11 | ED.NURSE ---
Per MD, hold Aspirin, okay to d/c home to go to dialysis, if ambulating well. Pt able to ambulate to bathroom with walker with standby assist, tolerated very well. Brief changed, endorses known occasional fecal incontinence. Assisted with dressing and shoes. VSS on RA. Pt reports improvement in symptoms. Coughing up yellow sputum, coughing and deep breathing encouraged. Pt assisted to vehicle and transferred self, tolerated well.
== END 2023-04-22 08:55 | disposition home or self-care (01) ==
PROVIDERS: Family Medicine; Emergency Provider Emergency Medicine; PCP Family Medicine
DX: N18.6 End stage renal disease (principal); J18.9 Pneumonia, unspecified organism
CPT/HCPCS: 36415; 71045; 80053; 82803; 82947; 83605; 83880; 84145; 84484; 85025; 86140; 87040; 87081; 87631; 93005; 94761; 95992; 96365; 96366; 99284; 99285; A9270; J0456; J0696; J3370; J7050; J7120; J7512

== ENCOUNTER 2023-04-27 16:04 | Emergency (ER) | payer MEDICARE, OTHER, SELFPAY ==
[2023-04-27] VITALS (11 sets, daily range): BP systolic 98–131; BP diastolic 54–61; PULSE 69–74; RESP 18; TEMP 36.8; O2SAT 91–97; BMI 28.8
--- NOTE | 2023-04-27 16:41 | CRLHL7_ITS ---
For Patients: As a result of the Cures Act, medical imaging exams and procedure reports are released immediately into your electronic medical record. You may view this report before your referring provider. If you have questions, please contact your health care provider. INDICATION: Pneumonia. TECHNIQUE: Chest 2 views. COMPARISON: April 21, 2023. FINDINGS: Cardiovascular and mediastinum: Stable heart size and vasculature. Lungs and pleural spaces: Stable bilateral pulmonary nodules no sign of infiltrate or mass. Trace blunting of the left costophrenic angle, possibly pleural effusion. No pneumothorax. Bones and soft tissues: No significant findings. IMPRESSION: Trace blunting of the left costophrenic angle, possibly small pleural effusions. Otherwise, no acute or significant findings or significant interval change compared to prior study. Dictated by Matt Ham MD @ 04/27/2023 6:19:06 PM (Electronically Signed)
--- OUTSIDE RECORDS SUMMARY | 2023-04-27 17:22 | XMS_ITS | Continuity of Care Document ---
Author Name Unknown Organization [facility] Address [address] [address] [place] [address] Phone Care Team Providers Care Mutuel Cashier Name Role Phone Unavailable Unavailable Unavailable Advance Directives Directive Yes / No Effective Date File Name No Information Encounters Encounter Description Practice Location Reason(s) For Visit Diagnoses Date Provider Providers Copied on Encounter [facility], [address] [address], [place], [place], [id number], [place] tel:[phone] [facility] No Information Aug-201 8 No [...]
--- OUTSIDE RECORDS SUMMARY | 2023-04-27 17:22 | XMS_ITS | Continuity of Care Document ---
Author Name Unknown Organization [facility] Address [address] [address] [place] [address] Phone Care Team Providers Care Chief Digital Media Officer Name Role Phone Unavailable Unavailable Unavailable Advance Directives Directive Yes / No Effective Date File Name No Information Encounters Encounter Description Practice Location Reason(s) For Visit Diagnoses Date Provider Providers Copied on Encounter [facility], [address] [address], [place], [place], [id number], [place] tel:[phone] [facility] No Information Aug-201 8 No Information Family History Family Member Type Diagnosis Age At Onset No Information Payers Payer name Insurance type Covered libertarian ID Authoriza tion(s) No Information Social History [...]
--- NOTE | 2023-04-27 17:42 | ED.GENADULT ---
HPI - General Adult General Chief complaint: Cough Stated complaint: Follow up for pneumonia-PCP was sick today Time Seen by Provider: 04/27/23 16:53 History of Present Illness HPI narrative: This patient comes in for follow-up after a pneumonia diagnosis. He presented to his clinic today but the his doctor called in sick so he came to the emergency department. He is scheduled to take his last antibiotic medication to treat a pneumonia. He is a dialysis patient and had dialysis today. He does not report any fevers. He does have some generalized weakness. He states that he had asbestos exposure when he was younger and there are some nodules on his lungs. He arrives here with normal vital signs except for his blood pressure has a systolic value in the mid to upper 90s. This is not atypical for him after having dialysis. Related Data Home Medications Medication Instructions Recorded Confirmed levothyroxine 12/12/22 pravastatin 12/12/22 Restasis 12/27/22 acetaminophen 650 mg 650 mg PO Q8H PRN 12/27/22 12/27/22 tablet,extended release (Tylenol Arthritis Pain) albuteral 12/27/22 aspirin 81 mg capsule 81 mg PO DAILY 12/27/22 12/27/22 coenzyme Q10 100 mg capsule (Co 100 mg PO DAILY 12/27/22 12/27/22 Q-10) fluticasone 100 mcg-salmeterol 50 1 inh inhalation BID 12/27/22 12/27/22 mcg/dose blistr powdr for inhalation (Wixela Inhub) fluticasone furoate 50 inhalation 12/27/22 mcg/actuation blister powder for inhalation guaifenesin 100 mg/5 mL oral liquid 100 mg PO Q6H coughing 12/27/22 12/27/22 insulin aspart U-100 100 unit/mL 18 unit subcut QPM 12/27/22 12/27/22 (3 mL) subcutaneous pen (Novolog FlexPen U-100 Insulin aspart) loratadine 10 mg tablet (Claritin) 10 mg PO DAILY 12/27/22 12/27/22 montelukast 10 mg tablet 10 mg PO DAILY 12/27/22 12/27/22 (Singulair) nitroglycerin 0.4 mg sublingual 0.4 mg sublingual Q5-15M PRN 12/27/22 12/27/22 tablet (Nitrostat) pantoprozole 12/27/22 sennosides 8.6 mg capsule (senna) 8.6 mg PO DAILY 12/27/22 12/27/22 tiotropium bromide 2.5 1 inh inhalation DAILY 12/27/22 12/27/22 mcg/actuation mist for inhalation (Spiriva Respimat) Previous Rx's Medication Instructions Recorded hydrocodone 5 mg-acetaminophen 325 1 tab PO Q4-6H PRN pain #10 tabs 12/12/22 mg tablet doxycycline hyclate 100 mg capsule 100 mg PO BID #10 caps 04/22/23 Allergies Allergy/AdvReac Type Severity Reaction Status Date / Time lisinopril Allergy Verified 12/27/22 15:54 metoclopramide [From Reglan] Allergy Verified 12/27/22 15:54 omeprazole Allergy Verified 12/27/22 15:54 hydrocodone/acetaminophen Allergy Uncoded 12/27/22 15:54 lipitor Allergy Uncoded 12/27/22 15:54 Review of Systems Status of ROS: Reports: 10 or more systems reviewed and unremarkable except as noted in History and below Narrative: Constitutional: No fevers, no weight gain or loss. Eyes: No discharge. No vision changes. HENT: No congestion, no sore throat, no ear pain. Cardiovascular: No chest pain, no palpitations. Respiratory: No shortness of breath, no wheezes, no cough. Gastrointestinal: No abdominal pain, no vomiting, no diarrhea. Genitourinary: No dysuria, no hematuria. Musculoskeletal: Normal range of motion. Skin: No rashes, no pruritis. Neurological: No dizziness, unilateral weakness, sensory change, speech change. Endo/Heme/Allergies: No bruising or bleeding. No polydipsia. Pysch: no suicidality, no anxiety, no insomnia. All other systems reviewed and are negative. [facility] Medical History DM (diabetes mellitus), type 2 ?E11.9 - Type 2 diabetes mellitus without complications (ICD-10) COPD (chronic obstructive pulmonary disease) ?J44.9 - Chronic obstructive pulmonary disease, unspecified (ICD-10) Social History Smoking Status: Former smoker Do you use any of these nicotine containing products: None Second hand tobacco smoke exposure: No How often do you have a drink containing alcohol: 2-4 times a month How often do you have six or more drinks on one occasion: Never AUDIT-C Alcohol total score: 2 Non-prescribed substance use: denies use service: No Exam Narrative: Exam Narrative: Constitutional: Well-developed, well-nourished, no acute distress. HEENT: Normocephalic, atraumatic. Neck: Normal range of motion. Nontender. Supple. Heart: Regular. No murmurs. Normal rate. Intact distal pulses. Lungs: Clear to auscultation. No chest discomfort. No wheezes, rhonchi, or rales. Abdomen: Normal bowel sounds. Nontender. No rebound tenderness. Genitalia: Deferred. Back: No midline tenderness. Normal range of motion. Extremities: Normal range of motion. No injury. Skin: Intact. No rash. Warm. No erythema or pallor. Neurologic: No altered sensation. No weakness. Alert and oriented. Psychiatric: No suicidality. No anxiety or depression. No insomnia. Nursing notes and vitals signs are reviewed. Const: Vital Signs, click to edit/add: Vital Signs - 24 hr 04/27/23 16:32 04/27/23 17:31 04/27/23 17:45 Temperature 98.3 F Pulse Rate 70 74 Pulse Rate [Pulse Oximeter] 73 Respiratory Rate 18 Blood Pressure Blood Pressure [Ri ght Upper Arm] 98/54 L Pulse Oximetry 96 94 96 Oxygen Delivery Me thod Room Air 04/27/23 17:59 04/27/23 18:00 04/27/23 18:01 Temperature Pulse Rate 70 70 70 Pulse Rate [Pulse Oximeter] Respiratory Rate Blood Pressure 125/58 L 123/59 L Blood Pressure [Ri ght Upper Arm] Pulse Oximetry 95 94 91 Oxygen Delivery Me thod Course Vital Signs Vital signs: Initial Vital Signs Temperature 98.3 F 04/27/23 16:32 Temperature Source Temporal Artery Scan 04/27/23 16:32 Pulse Rate 73 04/27/23 16:32 Respiratory Rate 18 04/27/23 16:32 Blood Pressure 98/54 L 04/27/23 16:32 Blood Pressure Mean 68 L 04/27/23 16:32 Pulse Oximetry 96 04/27/23 16:32 Oxygen Delivery Method Room Air 04/27/23 16:32 Vital Signs Temperature 98.3 F 04/27/23 16:32 Pulse Rate 73 04/27/23 16:32 Respiratory Rate 18 04/27/23 16:32 Blood Pressure 98/54 L 04/27/23 16:32 Pulse Oximetry 96 04/27/23 16:32 Oxygen Delivery Method Room Air 04/27/23 16:32 Temperature 98.3 F 04/27/23 16:32 Pulse Rate 70 04/27/23 18:01 Respiratory Rate 18 04/27/23 16:32 Blood Pressure 123/59 L 04/27/23 18:01 Pulse Oximetry 91 04/27/23 18:01 Oxygen Delivery Method Room Air 04/27/23 16:32 Medical Decision Making MDM Narrative Medical decision making narrative: This patient comes in to the ER as he was post to have a follow-up appointment with his primary physician who was out sick today. He arrives with normal vital signs. He has been on an antibiotic for a pneumonia diagnosis and has 1 dose left to take in the course of this treatment. A repeat x-ray is acquired today and shows no acute findings or new changes. This is reassuring to the patient. He is okay to be discharged home and encouraged to take his last remaining dose and follow-up with his primary physician as needed. Imaging Data Chest x-ray: Radiologist's impression: Trace blunting of the left costophrenic angle, possibly small pleural effusions. Otherwise, no acute or significant findings or significant interval change compared to prior study. Discharge Plan Discharge Clinical Impression: Community acquired pneumonia Patient Disposition: Home, Self-Care Condition: Unchanged Additional Instructions: Continue current plans. Follow up with MD or return if worsening. Prescriptions: No Action levothyroxine pravastatin hydrocodone-acetaminophen 5-325 mg tablet 1 tab PO Q4-6H PRN (Reason: pain) Qty: 10 0RF insulin aspart U-100 [Novolog FlexPen U-100 Insulin] 100 unit/mL (3 mL) insulin pen 18 unit subcut QPM albuteral 90 mcg Rx Instructions: 1-2 puffs 4 times a day as needed Spiriva Respimat 2.5 mcg/actuation mist 1 inh inhalation DAILY fluticasone propion-salmeterol [Wixela Inhub] 100-50 mcg/dose blister with device 1 inh inhalation BID Restasis Rx Instructions: 0.05 % 1 drop each eye every 12 hours. guaifenesin 100 mg/5 mL liquid 100 mg PO Q6H fluticasone furoate 50 mcg/actuation blister with device inhalation montelukast [Singulair] 10 mg tablet 10 mg PO DAILY pantoprozole 40 mg Rx Instructions: 1 tablet before meals every day nitroglycerin [Nitrostat] 0.4 mg tablet, sublingual 0.4 mg sublingual Q5-15M PRN Rx Instructions: do not exceed 3 doses per episode aspirin 81 mg capsule 81 mg PO DAILY loratadine [Claritin] 10 mg tablet 10 mg PO DAILY coenzyme Q10 [Co Q-10] 100 mg capsule 100 mg PO DAILY senna 8.6 mg capsule 8.6 mg PO DAILY acetaminophen [Tylenol Arthritis Pain] 650 mg tablet extended release 650 mg PO Q8H PRN doxycycline hyclate 100 mg capsule 100 mg PO BID Qty: 10 0RF Follow Up/Referrals: Anna Marie Oglesby DO [Primary Care Provider] - Stand Alone Forms: [facility] Info Instructions
== END 2023-04-27 18:55 | disposition home or self-care (01) ==
PROVIDERS: Emergency Provider Emergency Medicine Emergency Medical Services; PCP Family Medicine
DX: J18.9 Pneumonia, unspecified organism (principal); Z99.2 Dependence on renal dialysis
CPT/HCPCS: 71046; 99283; 99284

== ENCOUNTER 2023-10-05 22:08 | Observation (INO) | payer MEDICARE, OTHER, SELFPAY ==
--- OUTSIDE RECORDS SUMMARY | 2023-10-05 22:09 | XMS_ITS | Encounter Summary ---
Author Name [facility] Organization [facility] Affairs Address [address], [place] [address] Support Name Relationship Address Phone SUZANNE SERRANO Next of Kin [address] [place] [phone] SUZANNE SERRANO Emergency Contact [address] [place] [phone] Insurance Providers: All historical and current Section Date Range: From patient's date of to the date document was created. This section includes the names of all active insurance providers for the patient. Insurance Provider Type of Coverage Plan Name Start of Policy Coverage End of Policy Coverage Group Number Member ID Insurance Provider's Telephone Number Policy Blanchard's Name Patient's Relationship to Policy Blanchard MEDICARE (WNR) MEDICARE (M) RR PART A Feb 06, 2003 RR PART A [id number] [phone] MIKMOLLYRUDDY GranadoARD PATIENT MEDICARE (WNR) MEDICARE () RR PART B Feb 06, 2003 RR PART B [id number] [phone] MIKMOLLYRUDDY GranadoARD PATIENT MEDICARE (WNR) MEDICARE (M) PART A Feb 06, 2003 PART A [id number] [phone] ZACHRUDDYSHERYL PATIENT MEDICARE (WNR) MEDICARE (M) PART B Feb 06, 2003 PART B [id number] [phone] JANETTERUDDY rGanadoARD PATIENT MEDICARE PART D (WNR) MEDICARE () PART D Jun 08, 2022 PART D [id number] SHERYL SERRANO PATIENT [employer] MEDIC[employer] SECONDARY (NO B EXC) UPREH S Jun 08, 2009 [id number] [phone] SHERYL SERRANO PATIENT [employer] MEDICARE SUPPLEMEN KAREN MEDIC ARE SUPPL EMENT Jun 08, 2009 [id number] SHERYL SERRANO PATIENT Selected Encounter This section includes the information on record at [facility] for the Encounter. Date/Time Encounter Type Encounter Description Reason Provider Source Dec 18, 2022 01:00 PM OFFICE O/P EST HI 40-54 MIN PRIMARY CARE/MEDICINE ICD-10-CM R05.3 Chronic cough URVASHI MATHEWS [facility] Encounter Template Text not used by [facility] Assessments - Encounter Diagnoses This section includes the primary and secondary diagnoses documented for the Encounter. Date/Time Primary/Secondary Diagnosis Diagnosis Name Provider Source Dec 18, 2022 02:23 PM PRIMARY Chronic cough SILVERIO MATHEWS H [facility] Dec 18, 2022 02:23 PM SECONDARY Athscl heart disease of [place] coronary artery w/o ang pctrs SILVERIO MATHEWS [facility]Y [facility] Dec 18, 2022 02:23 PM SECONDARY Chronic obstructive pulmonary disease, unspecified SILVERIO MATHEWS [facility] Dec 18, 2022 02:23 PM SECONDARY Chronic rhinitis SILVERIO MATHEWS [facility] Dec 18, 2022 02:23 PM SECONDARY Contact with and exposure to other hazardous substances SILVERIO MATHEWS H [facility] Dec 18, 2022 02:23 PM SECONDARY Encounter for immunization MARY ENCINAS [facility] Dec 18, 2022 02:23 PM SECONDARY End stage renal disease SILVERIO MATHEWS LY H [facility] Dec 18, 2022 02:23 PM SECONDARY Essential (primary) hypertension SILVERIO MATHEWS H [facility] Dec 18, 2022 02:23 PM SECONDARY Gastro-esophageal reflux disease without esophagitis SILVERIO MATHEWS LY H [facility] Dec 18, 2022 02:23 PM SECONDARY Hyperlipidemia, unspecified SILVERIO MATHEWS LY [facility] Dec 18, 2022 02:23 PM SECONDARY Obstructive sleep apnea (adult) (pediatric) SILVERIO MATHEWS LY [facility] Dec 18, 2022 02:23 PM SECONDARY Secondary hyperparathyroidism of renal origin SILVERIO MATHEWS LY H [facility] Dec 18, 2022 02:23 PM SECONDARY Type 2 diabetes mellitus w diabetic chronic kidney disease SILVERIO MATHEWS [facility] Dec 18, 2022 02:23 PM SECONDARY Type 2 diabetes mellitus with diabetic neuropathy, unsp SILVERIO MATHEWS 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 Plan of Treatment: Future Appointments (+ 6 months) and Future Tests (+/- 45 days) The Plan of Treatment section includes future care activities for the patient [facility] This section includes future appointments and future orders which are active, pending or scheduled. Future Appointments This section includes appointments that were scheduled to occur 6 months from the date of the Encounter, up to a maximum of 20 appointments. The data comes from all [facility] facilities. Appointment Date/Time Appointment Type Appointme nt Facility Name Dec 19, 2022 10:00 AM AMBULATORY - NONE [facility] Feb 13, 2023 07:00 AM AMBULATORY - NONE [facility] Feb 18, 2023 07:00 AM AMBULATORY - NONE [facility] Feb 19, 2023 02:30 PM AMBULATORY - REHAB MEDICIN E [facility] Mar 26, 2023 02:10 PM AMBULATORY - NONE [facility] Vital Signs: All taken on the encounter date This section contains inpatient and outpatient Vital Signs collected on the date of the Encounter. Date/Time Temperature Pulse Blood Pressure Respiratory Rate SP02 Pain Height Weight Body Mass Index Source Dec 18, 2022 01:09 PM 98.1 F 75 /min 124/60 mm[Hg] 18 /min 96 % 5 72 in 220 lb 30 [facility] Immunizations: All administered on the encounter date This section contains immunizations associated to the Encounter. Immunization Series Date Issued Reaction Comments TDAP Dec 18, 2022 Social History: Smoking Status (Most current) and Tobacco Use (All prior to encounter date) This section includes the most current, and the historical, smoking and tobacco- related health factors from the AR facility where the Encounter took place. Current Smoking Status This section includes the most current smoking, or tobacco-related health factor, from the AR facility where the Encounter took place. Date/Time Current Smoking Status Comment Billie alcaraz Dec 18, 2022 01:00 PM VA-TOBACCO QUIT [address] [facility] Tobacco Use History This section includes a history of the smoking, or tobacco-related health factors, that were collected on or before the date of the Encounter. The data comes from the AR facility where the Encounter took place. Date/Time Smoking Status/Tobacco Use Comment F acility Dec 18, 2022 01:00 PM VA-TOBACCO QUIT [address] [facility] November 05, 2021 10:00 AM VA-TOBACCO FORMER USER [facility] November 05, 2021 10:00 AM VA-TOBACCO QUIT [address] [facility] Dec 10, 2018 12:57 PM VA-TOBACCO FORMER USER [facility] Dec 10, 2018 12:57 PM VA-TOBACCO QUIT [address] [facility] Feb 25, 2018 12:23 PM VA-TOBACCO FORMER USER [facility] Feb 25, 2018 12:23 PM VA-TOBACCO QUIT [address] [facility] Apr 10, 2015 02:55 PM FORMER TOBACCO USER 7Y OR GREATE R [facility] Apr 27, 2014 10:17 AM FORMER TOBACCO USER 7Y OR GREATE R [facility] Jun 18, 2006 07:23 AM FORMER TOBACCO USER 7Y OR GREATE R [facility] Advance Directives: All historical and current Section Date Range: From patient's date of to the date document was created. This section includes ALL of a patient's completed or amended [place] Advance and Rescinded Directives. The entries below indicate that a directive exists for the patient, but an actual copy is not included with this document. The data comes from all [facility]. Date Advance Directives Provider Source May 23, 2003 ADVANCE DIRECTIVE MARY ANDREW [facility] Encounter Notes: All associated encounter notes This section contains the clinical notes associated to the Encounter. Date/Time Encounter Note(s) Provider Source Dec 18, 2022 01:12 PM INTERNAL MEDICINE OUTPATIENT NOTE: LOCAL TITLE: MEDICINE CLINIC NURSING NOTE STANDARD TITLE: INTERNAL MEDICINE OUTPATIENT NOTE DATE OF NOTE: DEC 18, 2022@13:12 ENTRY DATE: DEC 18, 2022@13:13:05 AUTHOR: MARY ENCINAS COSIGNER: URGENCY: STATUS: COMPLETED TYPE OF VISIT: Appointment Check In Type of appointment: In-person appointment REASON FOR VISIT: annual check up ALLERGIES: SIMVASTATIN (October 13, 2003) DOXYCYCLINE (Apr 02, 2004) LISINOPRIL (Sep 17, 2006) ATORVASTATIN (Feb 22, 2009) VITAL SIGNS: Blood Pressure: 124/60 (12/18/2022 13:09) Pulse: 75 (12/18/2022 13:09) Respiration: 18 (12/18/2022:) Temperature: 98.1 F [36.7 C] (12/18/2022 13:09) Weight: 220 lb [99.79 kg] (12/18/2022 13:09) Height: 72 in [182.9 cm] (12/18/2022:) BMI: 29.9 O2 Sat: 96% (12/18/2022 13:09) Pain: 5 (12/18/2022 13:) PAIN SCREEN: Patient is not having significant pain that they wish to discuss with their provider today. MEDICATION Over the Counter/Herbal Medications: The patient states that they take some outside medications and/or herbals. Toxic Exposure Screening: The [place]/caregiver was asked if they believe the experienced any toxic exposure(s), such as Airborne Hazards and Open Burn Pit, [place] War related exposures, Agent Harold, Radiation, contaminated water at [place] or other such exposures, while serving in the [employer]. /caregiver believes the [place] was exposed to the following while serving in the [employer]: Other exposures: Comment: Asbestos [place]/caregiver was made aware of educational resources and printed information was offered and provided if desired. No questions at this time /caregiver was informed of local points of contact. Contact information for local resources: - Veterans Benefits for claims submission: Have the call or have them visit the following web address for online scheduling: [email or web address] - [place] Healthcare Enrollment: [phone] ([phone]) - Find a Television Host (VSO): Have the call 7-099-[phone] or look up their VSO at: [email or web address] - [facility] Navigators: Dr. Rogelio Restrepo: [phone] Dr. Edwin Hernandez: [phone] Toxic Exposure Screening Follow-Up reminder is needed. Name of person notified: Dr. Mathews COVID-19 Immunization: Refused Pfizer Bivalent COVID-19 booster Immunization: COVID-19 (PFIZER), MRNA, LNP-S, BIVALENT, PF, 30 MCG/0.3 ML DOSE Refusal Reason: PATIENT DECISION Patient refuses all immunization(s) in the COVID-19 group Date Documented: 12/18/22 13:16 Suicide Screen: C-SSRS Screening [place] Suicide Severity Rating Scale (C-SSRS) screener 1. Over the past month, have you wished you were or wished you could go to sleep and not wake up? No 2. Over the past month, have you had any actual thoughts of killing yourself? No 3. Over the past month, have you been thinking about how you might do this? Response not required due to responses to other questions. 4. Over the past month, have you had these thoughts and had some intention of acting on them? Response not required due to responses to other questions. 5. Over the past month, have you started to work out or worked out the details of how to kill yourself? Response not required due to responses to other questions. 6. If yes, at any time in the past month did you intend to carry out this plan? Response not required due to responses to other questions. 7. In your lifetime, have you ever done anything, started to do anything, or prepared to do anything to end your life (for example, collected pills, obtained a gun, gave away valuables, went to the roof but didn't jump)? No 8. If YES, was this within the past 3 months? Response not required due to responses to other questions. Influenza Immunization: The patient has received the seasonal influenza vaccine for the current season at another location. Documented: INFLUENZA, UNSPECIFIED FORMULATION Historical Date Administered: Mar 10, 2022 Information Source: FROM PATIENT'S WRITTEN RECORD Depression Screening: Perform PHQ-2 A PHQ-2 screen was performed. The score was 0 which is a negative screen for depression. Over the past two weeks, how often have you been bothered by the following problems? 1. Little interest or pleasure in doing things Not at all 2. Feeling down, depressed, or hopeless Not at all Alcohol Use Screen (AUDIT-C): Alcohol Screen: SCREEN FOR ALCOHOL (AUDIT-C) An alcohol screening test (AUDIT-C) was negative (score=1). 1. How often did you have a drink containing alcohol in the past year? Monthly or less 2. How many drinks containing alcohol did you have on a typical day when you were drinking in the past year? One or two drinks 3. How often did you have six or more drinks on one occasion in the past year? Never PTSD Screening: PC-PTSD-5 A PTSD screening test (PC-PTSD-5) was negative (score=0). IN THE PAST MONTH, have you ever had any experience that was so frightening, horrible or traumatic. For example: A serious accident or fire a physical or sexual assault or abuse An earthquake or flood A war Seeing someone be killed or seriously injured Having a loved one through homicide or suicide Have you ever experienced this kind of event? NO 1. Had nightmares about the event(s) or thought about the event(s) when you did not want to? Response not required due to responses to other questions. 2. Tried hard not to think about the event(s) or went out of your way to avoid situations that reminded you of the event(s)? Response not required due to responses to other questions. 3. Been constantly on guard, watchful, or easily startled? Response not required due to responses to other questions. 4. [place] numb or detached from people, activities, or your surroundings? Response not required due to responses to other questions. 5. [place] guilty or unable to stop blaming yourself or others for the event(s) or any problems the event(s) may have caused? Response not required due to responses to other questions. Nursing Annual Screening: Fall History Screen During the past 12 months, have you had any falls? Patient does not report any falls in the past 12 months. MEDICATIONS: Patient does not have an active prescription for one of the following medications: Antihypertensives, Antidepressants, Antipsychotics, Diuretics, or Opioid Analgesics (Contolled Substance medications used for pain). FALL RISK ADVICE: Fall Risk Advice provided. Handout entitled Fall Prevention At Home reviewed and given to patient and/or significant other. Script Talk Screen Are you able to read your prescription bottles with your glasses, magnifiers or other aids? Yes or patient not taking any prescriptions. Skin Screen Patient reports any current pressure ulcers, a history of pressure ulcers, or a wound from a medical superintendent or Patient is bed-confined or a wheelchair-user or Patient requires assistance to transfer/change position No, Skin Screen is Negative Home Abuse/Violence Screen Is your home free of abuse and violence? Yes MOVE! Program Screen Body Mass Index (BMI)= 29.9 [place]: Collection DT Specimen Test Name Result Units Ref Range 03/15/2020 11:02 BLOOD HEMOGLOBIN A1C 6.0 % 4.0 - 6.0 [place] Hgb A1C: No data available [place] Hgb A1C: No data available Point of Care Hgb A1C: POC HGB A1C____ Outpatient Nutrition Screen Body Mass Index (BMI)= 29.9 [place]: Collection DT Specimen Test Name Result Units Ref Range 03/15/2020 11:02 BLOOD HEMOGLOBIN A1C 6.0 % 4.0 - 6.0 [place] Hgb A1C: No data available [place] Hgb A1C: No data available Point of Care Hgb A1C: POC HGB A1C____ Is patient's BMI less than 18.5? No Does patient have swallowing, coughing, or chewing problems affecting oral intake? No Has patient experienced unplanned weight loss or gain greater than 10 pounds over the last 2 months? No Is patient's Hgb A1C (Glycosylated Hemoglobin) greater than 9.5? Information not available Is patient receiving Total Parenteral Nutrition (TPN) or Tube Feedings? No Patient Health Education Screen BARRIERS/SPECIAL NEEDS: Physical limitations Hearing limitations Visual limitations PREFERRED STYLE OF LEARNING: Watching something Listening Tobacco Use Screening: The patient is a former tobacco user. The patient quit fifteen or more years ago. Td / Tdap Immunization: Administered: TDAP Date Administered: Dec 18, 2022 13:00 Internet Assessor: Aneumed Lot: [id number] Exp Date: Mar 12, 2025 ND: [id number] Admin Route/Site: INTRAMUSCULAR/RIGHT DELTOID Dosage: 0.5mL Vaccine Information Statement(s): TDAP (TETANUS, DIPHTHERIA, PERTUSSIS) VACCINE VIS Jan 11, 2021 (GERMAN) Order By: Policy Administered By: Mary Encinas /katey/ MARY ENCINAS LPN LICENSED PRACTICAL NURSE Signed: 12/18/2022 13:[address] [facility] Dec 18, 2022 11:50 AM INTERNAL MEDICINE NOTE: LOCAL TITLE: MEDICINE CLINIC NOTE STANDARD TITLE: INTERNAL MEDICINE NOTE DATE OF NOTE: DEC 18, 2022@11:50 ENTRY DATE: DEC 14, 2022@14:02:25 AUTHOR: URVASHI MATHEWS EXP COSIGNER: URGENCY: STATUS: COMPLETED SUBJECT: CLINIC VISIT CLINIC VISIT GENERAL INTERNAL MEDICINE CLINIC PROGRESS NOTE SHERYL SERRANO is a 81 year old MALE with the following CHIEF COMPLAINT: chronic disease management THIS AN ESTABLISHED PATIENT IN THE PRIMARY CARE CLINIC HPI: Sheryl has a medical history notable for T2DM w/neuropathy, nephropathy, retinopahty, ESRD on HD, CAD s/p CABG, HTN, HLD, Psoriasis, CHLEO w/cpap, allergic rhinitis, COPD, GERD, Hypothyroidism, Co-managed car Co-managed care: [facility] [phone] Actuarial Assistant: Dr James Pérez [phone] [place], [place] Hemodialysis [place], [place] at [facility] Urology: [facility] at [facility] [phone], Dr. Prater Gets yearly at [facility] in [facility] [place] [facility]: Pacemaker checks [facility]: TACK COVERER Yoana Jarquin, Dr. Boubacar Jesus Other: - Urology: DR. ISRA RIVAS [facility] [address] [place] [address] [facility] in [facility] for patient to get residential visits for bladder irrigation Today, we reviewed 's interim chart notes (as summarized below), medications and any need for refills, test results and routine health care maintenance. Additional concerns today: Addressed request for quafenesin. Reports hasn't seen a scientific publications editor in a long time. On 3 inhalers, montelukast, now loratadine. Had rhinitis, post nasal drip but this has resolved. Had a lot of acid reflux in context of dental problems, took TUMS in addition to his PPII, now has reduced TUMS to 1 every couple days. Chronic cough. Hx COPD, asbestos exposure. Hasn't had imaging in a long while (per report). No fevers, unexplained weight loss, hemoptysis. Uses scooter to get around. CHART REVIEW: 12/10/22: Request for hemorrhoidal cream prescribed by non-VA MD 11/26/22: Wanted refill of DM 10/GUAIFENESN 100MG/5ML (ALC-F/SF)SYR for hx chronic cough. I advised F2F appt. Various traveling , non-VA, patient contact, sleep med notes, 11/05/2021: At our establish care visit, we reviewed his medical history in detail.Basically just wanted to gets his meds through the [facility], and all else is managed elsewhere. Plan at that timea; f/U one year (co managed care) Preventative health: Immunizations: reviewed Gets blood work drawn on dialysis. See nursing note regarding the following screening: Pain, suicide, depression, alcohol use, fall risk, skin screen, home abuse/violence, nutriton, health education, tobacco use. Today's nurse's notes were reviewed. Active problems - Computerized Problem List is the source for the followin. Hypothyroidism 2. Dyslipidemia 3. Diabetic neuropathy 4. Essential hypertension 5. Psoriasis Nos 6. 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 Adenoma of large intestine - colonoscopy and polypectomy 12/10, tubular adenoma at [place] 8. Diabetes mellitus 9. Cataract, Senile, Unsp 10. Coronary arteriosclerosis - s/p [id number] at [facility] in 07/15 11. Shared care - automobile sales consultant and GP - [facility] [phone] - Actuarial Assistant: Dr James Pérez [phone] - [place], [place] 12. Diabetic renal disease - 10/2018: started hemodialysis @ [facility] in [place] 13. Ganglion of wrist 14. Obstructive Sleep Apnea of Adult ([facility] [id number]) - APAP: 10-20, Ramp: 5x10 min, [place] 15. Hyperparathyroidism due to renal insufficiency 16. Chronic cough 17. Oropharyngeal dysphagia - 2013 TRIMMER MACHINE eval in chart 18. Hemorrhoid 19. Exposure to potentially hazardous substance - Asbestos 20. Chronic obstructive lung disease 21. Gastroesophageal reflux disease without esophagitis 22. Chronic rhinitis 23. End-stage renal disease SURGICAL HISTORY: [id number] at [facility] in 07/2006 FAMILY HISTORY: Reviewed. SOCIAL HISTORY: Relationship/living situation: lives w/ [place] in [facility] home health care in [facility] for patient to get residential visits for bladder irrigation Substance use hx: Tobacco, smoking: former smoker, quit decades ago Alcohol: 1-2 drinks, monthly or less Active and Recently Outpatient Medications (including Supplies): Active Outpatient Medications Status 1) ALBUTEROL 90MCG (CFC-F) 200D ORAL INHL INHALE 2 PUFFS ACTIVE BY INHALATION EVERY 4 HOURS NEEDED FOR BREATHING SHAKE WELL (FOR IMMEDIATE RELIEF). 2) CYCLOSPORINE 0.05% (PF) OPH EMUL 0.4ML INSTILL 1 DROP ACTIVE BOTH EYES TWICE A DAY 3) DIALYVITE TAB TAKE 1 TABLET BY MOUTH EVERY DAY ACTIVE 4) DM 10/GUAIFENESN 100MG/5ML (ALC-F/SF)SYR TAKE 5 ML (1 ACTIVE TEASPOONFUL) BY MOUTH EVERY 8 HOURS NEEDED FOR COUGH 5) FLUTICAS 250/SALMETEROL 50 INHL DISK 60 INHALE 1 PUFF ACTIVE BY INHALATION TWICE A DAY TO PREVENT TROUBLE BREATHING -RINSE MOUTH AFTER USING 6) HYDROCORTISONE 2.5% CREAM APPLY THIN LAYER TOPICALLY ACTIVE EVERY DAY NEEDED HEMORRHOID 7) INSULIN,ASPART(EQV-NOVLG)100U N/ML FLXPEN INJECT 5 ACTIVE UNITS UNDER THE SKIN TWICE A DAY TO DECREASE BLOOD SUGAR-- INJECT IMMEDIATELY BEFORE MEAL (PEN FILL APPROVED) REPLACES REGULAR INSULIN PEN 8) INSULIN,GLARGINE 100 UNT/ML 3ML SOLOSTAR INJECT 18 ACTIVE UNITS UNDER THE SKIN EVERY DAY FOR DIABETESDISCARD PEN 28 DAYS AFTER INITIAL USE 9) ISOSORBIDE MONONITRATE 30MG SA TAB TAKE ONE-HALF ACTIVE TABLET BY MOUTH EVERY EVENING FOR HEART 10) LEVOTHYROXINE NA (SYNTHROID) 175MCG TAB TAKE ONE ACTIVE TABLET BY MOUTH EVERY DAY FOR THYROID 11) MONTELUKAST NA 10MG TAB TAKE ONE TABLET BY MOUTH ACTIVE EVERY DAY 12) PANTOPRAZOLE NA 40MG EC TAB TAKE ONE TABLET BY MOUTH ACTIVE EVERY DAY ONE-HALF HOUR BEFORE EATING. 13) PRAVASTATIN NA 40MG TAB TAKE ONE TABLET BY MOUTH AT ACTIVE BEDTIME FOR CHOLESTEROL 14) TIOTROPIUM 2.5MCG/ACTUAT 60D ORAL INHL INHALE TWO ACTIVE PUFFS BY INHALATION EVERY DAY FOR ASTHMA 15) VANICREAM TOP CREAM APPLY TO DRY SKIN TOPICALLY EVERY ACTIVE DAY NEEDED FOR DRY SKIN Inactive Outpatient Medications Status 1) LEVOTHYROXINE NA (SYNTHROID) 175MCG TAB TAKE ONE DISCONTINUED TABLET BY MOUTH EVERY DAY FOR THYROID Active Non-VA Medications Status 1) Non-VA COENZYME Q10 CAP/TAB 1 TABLET COENZYME Q10 ACTIVE 100MG MOUTH EVERY DAY 2) Non-VA FISH OIL 1000MG (500MG DHA/EPA) CAP 1200MG ACTIVE MOUTH EVERY DAY 3) Non-VA NITROGLYCERIN 0.4MG SL TAB 0.4MG UNDER THE ACTIVE TONGUE NEEDED 4) Non-VA NON VA MED NOT LISTED MISCELLANEOUS SUPER BEE ACTIVE VITAMIN COMPLEX EVERY DAY 5) Non-VA PROBIOTIC CAP 1 CAPSULE MOUTH EVERY DAY ACTIVE 6) Non-VA VITAMIN E 180MG (400UNIT) CAP 400UNIT MOUTH ACTIVE EVERY DAY 7) Non-VA ZINC SULFATE TAB 50MG MOUTH EVERY DAY ACTIVE 23 Total Medications MEDICATION RECONCILIATION: completed ALLERGIES: SIMVASTATIN (October 13, 2003) DOXYCYCLINE (Apr 02, 2004) LISINOPRIL (Sep 17, 2006) ATORVASTATIN (Feb 22, 2009) EXAM: VITAL SIGNS: Blood Pressure: 124/60 (12/18/2022 13:09) Pulse: 75 (12/18/2022 13:09) Respiration: 18 (12/18/2022 13:09) Temperature: 98.1 F [36.7 C] (12/18/2022 13:09) Weight: 220 lb [99.79 kg] (12/18/2022 13:09) Height: 72 in [182.9 cm] (12/18/2022 13:09) BMI: 29.9 O2 Sat: 96% (12/18/2022 13:09) Previous VS: Blood Pressure: 117/64 (11/05/2021 10:06) Weight: 208 lb [94.35 kg] (11/05/2021 10:06) GEN: Alert, no acute distress Arrives in a motorizes scooter, w/. Very hard of hearing, could hear better if talking near his ears. Most history obtained through . Psych: actively engaged in conversation, full range of affect, no psychomotor slowing, no signs of agitation Lungs: CTA throughout C/V: right upper chest pacemaker generator palpable RRR today, no significant peripheral edema TEST RESULTS: Received labs from 06/23/22 at [facility] labs: BMP 140/4.4 Bicarb 30 Cr 10.47 PTHi 176 Vit D 56 (30-100) Phos 3.2 Mg 3.2 alk phos 98 ALKT 14 Alb 3.8 Iron: Ferritin 578 Iron 80 TIBC 233 Sats 34 Folate >24 B12 778 HbsAg neg Anti HBs 47 (+) Anti HCV neg Entry of Outside Tests/Reports: Anticoagulation labs (CBC, INR, Scr, LFT's) Hematocrit: Date: June, ? Exact date is unknown Results: 29 Location: [facility] labs Hemoglobin: Date: June 23, 2022 Results: 10 White Blood Cells (WBC): Date: June, ? Exact date is unknown Results: 6.8 Creatinine: Date: June, ? Exact date is unknown Results: 10.4 PULMONARY FUNCTION TEST PROCEDURE DATE/TIME: 05/03/13 10:07 ............................. ............................. ...................... UNITS PRED ACTUAL %PRED PREV1 PREV2 CI FLOWS........................ ............................. ...................... STANDARD STUDY 04/14/11 04/25/10 FVC L 4.23 2.41 56.9 2.98 2.42 FEV1 L 3.07 1.53 49.9 2.25 1.94 PF L/SEC 6.984 3.870 55.4 4.580 5.030 4.01 [id number] L/SEC 2.910 0.800 27.5 1.880 2.050 1.24 FEV1/FVC % 63 AFTER BRONCHODILATOR 04/14/11 04/25/10 FVC L 4.23 2.70 63.8 2.87 3.20 FEV1 L 3.07 1.84 60.0 2.07 2.52 PF L/SEC 6.984 4.790 68.6 4.330 5.280 4.01 [id number] L/SEC 2.910 0.860 29.6 1.290 2.350 1.24 FEV1/FVC % 68 DIFFUSION.................... ............................. ...................... 04/14/11 04/25/10 DLCO-SB L 30.84 17.80 57.7 26.00 24.50 INTERPRETATION............... ............................. ...................... INTERPRETATION: Probable obstruction: FEV1/FVC ratio<predicted and FEV1 <CI. Lung Volumes may be required to distinguish obstruction from restriction, if clinically indicated. Moderate ( Fev1 >=50% and <80% ref ). Bronchodilator response: < 30% increase does not exclude Asthma and should not be used to guide Rx. Diffusing Capacity: Reduced. Compared to previous test on 04/14/2011, worse. Patient was informed of available lab, imaging, and other study results associated with today's visit. ASSESSMENT AND PLAN: Chronic cough Hx abnormal PFT's/COPD, Hx ropharyngeal dysphagia, GERD, Allergic rhinitis, Prior smoking hx, Hx asbestos exposure T2DM w/neuropathy, nephropathy, retinopahty, ESRD on HD, CAD s/p CABG, HTN, HLD, Psoriasis, CHLOE w/cpap, Allergic rhinitis, COPD, GERD, Hypothyroidism Plan: I recommended pulmonary consult (followed by non-VA clinicians) Co-managed care, comes here once a year in order to get meds filled through [facility]. REMINDERS: Medication Reconciliation: Education Evaluations *Was medication education provided for NEW medications or CHANGES to medications? (including medication name, dose, route, reason for use, and potential side effects). No new medications or medication changes during this encounter. Additional information: meds managed by non-VA clinicians, I updated our list accordingly TERATOGENIC MED & CONTRACEPTION REVIEW (Optional)... = MEDICATION RECONCILIATION = List Given: An updated medication list was provided to the patient/caregiver. Review Done: The medication list shown below was verified for accuracy and it includes all pending medications/active medications/all medications or discontinued within the last 90 days/all remote medications and non-VA medications. If a given category (i.e. remote meds) is not shown, that means that a patient doesn't have a medication(s) in that category. Allergies listed below were also reviewed/updated for accuracy. Allergies/ADR from [facility] may not display in CPRS. Use JLV MRT5 - Allergies/ADRs FACILITY ALLERGY/ADR -------- [facility] ATORVASTATIN [facility] METOCLOPRAMIDE [facility] OMEPRAZOLE [facility] ATORVASTATIN [facility] DOXYCYCLINE [facility] HYDROCODONE [facility] LISINOPRIL [facility] SIMVASTATIN Active and Recently Outpatient Medications (including Supplies): Issue Date Status Last Fill Active Outpatient Medications Refills Expiration 1) ALBUTEROL 90MCG (CFC-F) 200D ORAL INHL ACTIVE Issu:08-20-22 Qty: 2 for 50 days Sig: INHALE 2 Refills: 4 Last:11-11-22 PUFFS BY INHALATION EVERY 4 HOURS Expr:08-21-23 NEEDED FOR BREATHING SHAKE WELL (FOR IMMEDIATE RELIEF). 2) CYCLOSPORINE 0.05% (PF) OPH EMUL 0.4ML ACTIVE Issu:03-24-22 Qty: 60 for 30 days Sig: INSTILL 1 Refills: 11 Last:04-07-22 DROP BOTH EYES TWICE A DAY Expr:03-25-23 3) DIALYVITE TAB Qty: 100 for 90 days ACTIVE Issu:09-09-22 Sig: TAKE 1 TABLET BY MOUTH EVERY DAY Refills: 2 Last:12-09-22 Expr:09-10-23 4) FLUTICAS 250/SALMETEROL 50 INHL DISK 60 ACTIVE Issu:09-22-22 Qty: 3 for 90 days Sig: INHALE 1 PUFF Refills: 3 Last:09-24-22 BY INHALATION TWICE A DAY TO PREVENT Expr:09-23-23 TROUBLE BREATHING -RINSE MOUTH AFTER USING 5) HYDROCORTISONE 2.5% CREAM Qty: 30 for ACTIVE Issu:12-10-22 30 days Sig: APPLY THIN LAYER Refills: 0 Last:12-11-22 TOPICALLY EVERY DAY NEEDED Expr:01-09-23 HEMORRHOID 6) INSULIN,ASPART(EQV-NOVLG)100U N/ML FLXPEN ACTIVE Issu:05-12-22 Qty: 5 for 90 days Sig: INJECT 5 Refills: 2 Last:11-04-22 UNITS UNDER THE SKIN TWICE A DAY TO Expr:05-13-23 DECREASE BLOOD SUGAR-- INJECT IMMEDIATELY BEFORE MEAL (PEN FILL APPROVED) REPLACES REGULAR INSULIN PEN 7) INSULIN,GLARGINE 100 UNT/ML 3ML SOLOSTAR ACTIVE Issu:05-12-22 Qty: 5 for 83 days Sig: INJECT 18 Refills: 2 Last:11-25-22 UNITS UNDER THE SKIN EVERY DAY FOR Expr:05-13-23 DIABETESDISCARD PEN 28 DAYS AFTER INITIAL USE 8) LEVOTHYROXINE NA (SYNTHROID) 175MCG TAB ACTIVE Issu:07-31-22 Qty: 90 for 90 days Sig: TAKE ONE Refills: 2 Last:10-23-22 TABLET BY MOUTH EVERY DAY FOR THYROID Expr:08-01-23 9) MONTELUKAST NA 10MG TAB Qty: 90 for 90 ACTIVE Issu:04-30-22 days Sig: TAKE ONE TABLET BY MOUTH Refills: 1 Last:10-28-22 EVERY DAY Expr:05-01-23 10) PANTOPRAZOLE NA 40MG EC TAB Qty: 90 for ACTIVE Issu:05-28-22 90 days Sig: TAKE ONE TABLET BY MOUTH Refills: 1 Last:12-09-22 EVERY DAY ONE-HALF HOUR BEFORE EATING. Expr:05-29-23 11) PRAVASTATIN NA 40MG TAB Qty: 90 for 90 ACTIVE Issu:05-28-22 days Sig: TAKE ONE TABLET BY MOUTH AT Refills: 1 Last:11-15-22 BEDTIME FOR CHOLESTEROL Expr:05-29-23 12) TIOTROPIUM 2.5MCG/ACTUAT 60D ORAL INHL ACTIVE Issu:10-28-22 Qty: 1 for 90 days Sig: INHALE TWO Refills: 3 Last:10-29-22 PUFFS BY INHALATION EVERY DAY FOR Expr:10-29-23 ASTHMA 13) VANICREAM TOP CREAM Qty: 908 for 90 ACTIVE Issu:04-30-22 days Sig: APPLY TO DRY SKIN TOPICALLY Refills: 1 Last:10-28-22 EVERY DAY NEEDED FOR DRY SKIN Expr:05-01-23 Issue Date Status Last Fill Pending Outpatient Medications Refills Expiration 1) VANICREAM TOP CREAM Qty: 1362 Sig: PENDING APPLY THIN LAYER TOPICALLY EVERY DAY Refills: 0 Issue Date Status Last Fill Inactive Outpatient Medications Refills Expiration 1) DM 10/GUAIFENESN 100MG/5ML (ALC-F/SF)SYR DISCONTINUED Issu:08-20-22 Qty: 360 for 30 days Sig: TAKE 5 ML Refills: 5 Last:08-22-22 (1 TEASPOONFUL) BY MOUTH EVERY 8 HOURS Expr:08-21-23 NEEDED FOR COUGH 2) ISOSORBIDE MONONITRATE 30MG SA TAB Qty: DISCONTINUED Issu:04-13-22 45 for 90 days Sig: TAKE ONE-HALF Refills: 3 Last:04-15-22 TABLET BY MOUTH EVERY EVENING FOR Expr:04-14-23 HEART 3) LEVOTHYROXINE NA (SYNTHROID) 175MCG TAB DISCONTINUED Issu:07-29-22 Qty: 90 for 90 days Sig: TAKE ONE Refills: 3 Last:07-31-22 TABLET BY MOUTH EVERY DAY FOR THYROID Expr:07-30-23 Start Date Active Non-VA Medications Refills Expiration 1) Non-VA CALCIUM CARBONATE TAB,CHEWABLE ACTIVE Sig: ONE TABLET MOUTH FOUR TIMES A DAY NEEDED 2) Non-VA COENZYME Q10 CAP/TAB Si ACTIVE TABLET COENZYME Q10 100MG MOUTH EVERY DAY 3) Non-VA FISH OIL 1000MG (500MG DHA/EPA) ACTIVE CAP SiMG MOUTH EVERY DAY 4) Non-VA LORATADINE 10MG TAB SiMG ACTIVE MOUTH EVERY DAY NEEDED 5) Non-VA NITROGLYCERIN 0.4MG SL TAB Sig: ACTIVE 0.4MG UNDER THE TONGUE NEEDED 6) Non-VA VITAMIN E 180MG (400UNIT) CAP ACTIVE SiUNIT MOUTH EVERY DAY 7) Non-VA ZINC SULFATE TAB SiMG MOUTH ACTIVE EVERY DAY 24 Total Medications Toxic Exposure Screening Follow-Up: Exposure Concern(s): 12/18/2022 Other Environmental Concerns - Toxic Exposure Concern Asbestos Follow-up Question(s): 12/18/2022 No Questions - Toxic Exposure Concern [place]/caregiver has health or medical concerns related to their concern of environmental exposure. Concern: asbestos The following connections were provided to the [place]/caregiver: No connections needed at this time Diabetic Eye Screening: Patient declined eye exam at this encounter. Diabetic Foot Exam - Complete: Patient declined foot examination at this time. Comment: followed by non-VA clinicians Patient/Surrogate indicates readiness to learn, verbalizes understanding, agreement and satisfaction with the treatment plan. Time spent today, including reviewing prior VA- and non-VA notes and test results, independently obtaining history, performing a medically appropriate exam and/or evaluation, documentating clinical information in the EHR progress note, updating the EHR problem list, independently interpreting results, communicating results, counseling and educating patient/surrogate, coordinating care with other health team members, entering orders, completing reminders and coding the encounter: Total Time: 40 min Urvashi Mathews MD General Internal Medicine [facility] LAYNE Cameron /katey/ Urvashi Mathews MD Physician Signed: 12/18/2022 14:[address] [facility]
--- OUTSIDE RECORDS SUMMARY | 2023-10-05 22:09 | XMS_ITS | Encounter Summary ---
Author Name [facility] Organization [facility] Address [address], [place] [address] Support Name Relationship Address Phone SUZANNE SERRANO [...] A Feb 06, 2003 RR PART A [id number] [phone] MIKMOLLYRUDDY GranadoARD PATIENT MEDICARE (WNR) MEDICARE () RR PART B Feb 06, 2003 RR PART B [id number] [id number] [id number] MIKMOLLYRUDDY GranadoARD PATIENT MEDICARE (WNR) MEDICARE (M) PART A Feb 06, 2003 PART A [id number] ALANNAHTODDRUDDY GranadoARD PATIENT MEDICARE (WNR) MEDICARE (M) PART B Feb 06, 2003 PART B [id number] ZACH SHERYL PATIENT MEDICARE PART D (WNR) MEDICARE () PART D Jun 08, 2022 PART D [id number] SHERYL SERRANO PATIENT [employer] MEDICARE SECONDARY (NO B EXC) UPREH S Jun 08, 2009 [id number] SHERYL SERRANO PATIENT [employer] MEDICARE SUPPLEMEN KAREN MEDIC ARE SUPPL EMENT Jun 08, 2009 [id number] SHERYL SERRANO PATIENT Selected Encounter This section includes the information on record at [place] for the Encounter. Date/Time Encounter Type Encounter Description Reason Provider Source Mar 04, 2023 02:48 PM Outpatient Encounter PM&RS PHYSICIAN ICD-10-CM R26.9 Unspecified abnormalities of gait and mobility MINGO HOWARD [facility] Encounter Template Text not used by [place] Assessments - Encounter Diagnoses This section includes the primary and secondary diagnoses documented for the Encounter. Date/Time Primary/Secondary Diagnosis Diagnosis Name Provider Source Mar 05, 2023 06:45 AM PRIMARY Unspecified abnormalities of gait and mobility MINGO HOWARD [facility] Plan of Treatment: Future Appointments (+ 6 months) and Future Tests (+/- 45 days) The Plan of Treatment section includes future care activities for the patient from all [place] treatmentfacilities. This section includes future appointments and future orders which are active, pending or scheduled. Future Appointments This section includes appointments that were scheduled to occur 6 months from the date of the Encounter, up to a maximum of 20 appointments. The data comes from all [place] treatment facilities. Appointment Date/Time Appointment Type Appointme nt Facility Name Mar 26, 2023 02:10 PM [facility] Jul 23, 2023 01:00 PM AMBULATORY - MEDICINE [facility] Social History: Smoking Status (Most current) and Tobacco Use (All prior to encounter date) This section includes the most current, and the historical, smoking and tobacco- related health factors from the [place] facility where the Encounter took place. Current Smoking Status This section includes the most current smoking, or tobacco-related health factor, from the [place] facility where the Encounter took place. Date/Time Current Smoking Status Comment Facil ity Dec 18, 2022 01:00 PM VA-TOBACCO FORMER USER [facility] Tobacco Use History This section includes a history of the smoking, or tobacco-related health factors, that were collected on or before the date of the Encounter. The data comes from the [place] facility where the Encounter took place. Date/Time Smoking Status/Tobacco Use Comment F acility Dec 18, 2022 01:00 PM VA-TOBACCO QUIT 15 YRS OR MORE [facility] November 05, 2021 10:00 AM VA-TOBACCO FORMER USER [facility] November 05, 2021 10:00 AM VA-TOBACCO QUIT 15 YRS OR MORE [facility] Dec 10, 2018 12:57 PM VA-TOBACCO FORMER USER [facility] Dec 10, 2018 12:57 PM VA-TOBACCO QUIT 15 YRS OR MORE [facility] Feb 25, 2018 12:23 PM VA-TOBACCO FORMER USER [facility] Feb 25, 2018 12:23 PM VA-TOBACCO QUIT 15 YRS OR MORE [facility] Apr 10, 2015 02:55 PM FORMER TOBACCO USER 7Y OR GREATE R [facility] Apr 27, 2014 10:17 AM FORMER TOBACCO USER 7Y OR GREATE R [facility] Jun 18, 2006 07:23 AM FORMER TOBACCO USER 7Y OR GREATE R [facility] Advance Directives: All historical and current Section Date Range: From patient's date of to the date document was created. This section includes ALL of a patient's completed or amended [place] Advance and Rescinded Directives. The entries below indicate that a directive exists for the patient, but an actual copy is not included with this document. The data comes from all [place] facilities. Date Advance Directives Provider Source May 23, 2003 ADVANCE DIRECTIVE [facility] Encounter Notes: All associated encounter notes This section contains the clinical notes associated to the Encounter. Date/Time Encounter Note(s) Provider Source Mar 04, 2023 02:48 PM ORTHOTICS PROSTHET ICS CONSULT: LOCAL TITLE: [facility] CONS[facility] STANDARD TITLE: ORTHOTICS PROSTHETICS CONSULT DATE OF NOTE: MAR 04, 2023@14:48 ENTRY DATE: MAR 04, 2023@14:48:54 AUTHOR: MINGO HOWARD EXP COSIGNER: URGENCY: STATUS: COMPLETED [facility] E-Consult Patient is a 83 yo with ESRD, DM, COPD resulting in difficulty with srairs. He has been referred for Stair[place]ide x2 to upper and lower level in order to access bedroom (upper level) and accessible bathroom (basement level). Given his condition and diagnosis, he meets criteria for this and request is approved. Total time spent on e-consult: 5-10 min /es/ MINGO HOWARD MD STAFF PHYSICIAN Signed: 03/05/2023 06:45 MINGO HOWARD [facility]
--- OUTSIDE RECORDS SUMMARY | 2023-10-05 22:09 | XMS_ITS | Encounter Summary ---
Author Name [facility] of [facility] Organization [facility] of [facility] Address [address], [place] [address] Support Name Relationship Address Phone SUZANNE SERRANO [...] A Feb 06, 2003 RR PART A [id number] [phone] JANETTERUDDY GranadoARD PATIENT MEDICARE (WNR) MEDICARE (M) RR PART B Feb 06, 2003 RR PART B [id number] JANETTEVannesa SHERYL PATIENT MEDICARE (WNR) MEDICARE (M) PART A Feb 06, 2003 PART A [id number] SHERYL SERRANO PATIENT MEDICARE (WNR) MEDICARE (M) PART B Feb 06, 2003 PART B [id number] SHERYL SERRANO PATIENT MEDICARE PART D (WNR) MEDICARE () PART D Jun 08, 2022 PART D [id number] SHERYL SERRANO PATIENT [employer] MEDICARE SECONDARY (NO B EXC) UPREH S Jun 08, 2009 [id number] SHERYL SERRANO PATIENT [employer] MEDICARE SUPPLEMEN KAREN MEDIC ARE SUPPL EMENT Jun 08, 2009 [id number] SHERYL SERRANO PATIENT Selected Encounter This section includes the information on record at [place] for the Encounter. Date/Time Encounter Type Encounter Description Reason Provider Source October 28, 2022 12:30 PM PT EDUCATION NOC INDIVID SLEEP MEDICINE ICD-10-CM G47.33 Obstructive sleep apnea (adult) (pediatric) JOSEFINAKINGS Vannesa [facility] Encounter Template Text not used by [place] Assessments - Encounter Diagnoses This section includes the primary and secondary diagnoses documented for the Encounter. Date/Time Primary/Secondary Diagnosis Diagnosis Name Provider Source October 28, 2022 01:10 PM PRIMARY Obstructive sleep apnea (adult) (pediatric) KINGS ROCHA [facility] Plan of Treatment: Future Appointments (+ 6 months) and Future Tests (+/- 45 days) The Plan of Treatment section includes future care activities for the patient [facility] [place] [facility] This section includes future appointments and future orders which are active, pending or scheduled. Future Appointments This section includes appointments that were scheduled to occur 6 months from the date of the Encounter, up to a maximum of 20 appointments. The data comes from all [place] treatment facilities. Appointment Date/Time Appointment Type Appointme nt Facility Name Dec 18, 2022 01:00 PM AMBULATORY - MEDICINE [facility] Dec 19, 2022 10:00 AM [facility] N[facility] Feb 13, 2023 07:00 AM [facility] Feb 18, 2023 07:00 AM [facility] Feb 19, 2023 02:30 PM AMBULATORY - REHAB [facility] Mar 26, 2023 02:10 PM AMBULATORY - NONE [facility] Social History: Smoking Status (Most current) and Tobacco Use (All prior to encounter date) This section includes the most current, and the historical, smoking and tobacco- related health factors from the [place] facility where the Encounter took place. Current Smoking Status This section includes the most current smoking, or tobacco-related health factor, from the [place] facility where the Encounter took place. Date/Time Current Smoking Status Comment Billie ity November 05, 2021 10:00 AM VA-TOBACCO FORMER USER [facility] Tobacco Use History This section includes a history of the smoking, or tobacco-related health factors, that were collected on or before the date of the Encounter. The data comes from the [place] facility where the Encounter took place. Date/Time Smoking Status/Tobacco Use Comment F acsilva November 05, 2021 10:00 AM VA-TOBACCO QUIT 15 YRS OR MORE [facility] Dec 10, 2018 12:57 PM VA-TOBACCO FORMER USER [facility] Dec 10, 2018 12:57 PM VA-TOBACCO QUIT 15 YRS OR MORE [facility] Feb 25, 2018 12:23 PM VA-TOBACCO FORMER USER [facility] Feb 25, 2018 12:23 PM VA-TOBACCO QUIT 15 YRS OR MORE [facility] Apr 10, 2015 02:55 PM FORMER TOBACCO USER 7Y OR GREATE R [facility] Apr 27, 2014 10:17 AM FORMER TOBACCO USER 7Y OR GREATE R [facility] Jun 18, 2006 07:23 AM FORMER TOBACCO USER 7Y OR [facility] R [facility] Advance Directives: All historical and current Section Date Range: From patient's date of to the date document was created. This section includes ALL of a patient's completed or amended [place] Advance and Rescinded Directives. The entries below indicate that a directive exists for the patient, but an actual copy is not included with this document. The data comes from all [facility]. Date Advance Directives Provider Source May 23, 2003 ADVANCE DIRECTIVE [facility]INGS AND[facility] Encounter Notes: All associated encounter notes This section contains the clinical notes associated to the Encounter. Date/Time Encounter Note(s) Provider Source October 28, 2022 12:48 PM SLEEP MEDICINE NOT E: LOCAL TITLE: SLEEP MEDICINE NOTE STANDARD TITLE: SLEEP MEDICINE NOTE DATE OF NOTE: OCTOBER 28, 2022@12:48 ENTRY DATE: OCTOBER 28, 2022@12:49:03 AUTHOR: KINGS ROCHA COSIGNER: URGENCY: STATUS: COMPLETED and Spouse seen in clinic today for noisy Cpap machine, and follow up for large leak seen on download in August. Currently using a So-Clean machine and I discussed the recall of this unit with them. The filter was dirty and I changed that, and also found his nasal mask to be dirty. I ordered a years supply and discussed the resupply program with them I turned the unit on and found a large leak and noise with the So-clean attached, after I removed it and replaced with the proper cover for the water tub, the noise and leak was resolved. Educated extensively with [place] and spouse the importance of cleaning and changing the filters, not to use the So-clean unit, reviewed his current therapy date download which showed the median Leak to be 71, with AHI: 8.9, which I believe will be lower now that the So-clean machine if off and new mask with help. 10/28/[id number] [employer] PM PEND.SHIPMT N/A [id number] 10/28/[id number] [employer] PM PEND.SHIPMT N/A [id number] 10/28/[id number] [employer] PM PEND.SHIPMT N/A [id number] 10/28/[id number] [employer] PM PEND.SHIPMT N/A [id number] 10/28/[id number] [employer] PM PEND.SHIPMT N/A [id number] Usage days 29/30 days (97%) Compliance check >= 4 hours 26 days (87%) Usage hours 184 hours 33 minutes Average usage (total days) 6 hours 9 minutes Total used hours (value since last reset - 10/28/2022) 1,137 hours Pressure - cmH2O Median: 10.0 95th percentile: 10.0 Maximum: 10.1 Leaks - L/min Median: 71.5 95th percentile: 105.4 Maximum: 115.1 Events per hour AI: 6.9 HI: 2.0 AHI: 8.9 Apnea Index Central: 0.0 Obstructive: 0.0 Comments: no other questions or concerns at this time. /katey/ KINGS ROCHA RESPIRATORY THERAPIST Signed: 10/28/2022 13:10 KINGS ROCHA [facility]
--- OUTSIDE RECORDS SUMMARY | 2023-10-05 22:09 | XMS_ITS | Encounter Summary ---
Author Name Department of [facility] Organization Department of [facility] Address [address], [place] [address] Support Name Relationship Address Phone JAGRUTI SERRANO Next of Kin [address] [place] [id number] JAGRUTI SERRANO Emergency Contact [address] [place] [...] A Feb 06, 2003 RR PART A [id number] JANETTERUDDY GranadoARD PATIENT MEDICARE (WNR) MEDICARE (M) RR PART B Feb 06, 2003 RR PART B [id number] JANETTEVannesa SHERYL PATIENT MEDICARE (WNR) MEDICARE (M) PART A Feb 06, 2003 PART A [id number] ZACH SHERYL PATIENT MEDICARE (WNR) MEDICARE (M) PART B Feb 06, 2003 PART B [id number] SHERYL SERRANO PATIENT MEDICARE PART D (WNR) MEDICARE () PART D Jun 08, 2022 PART D [id number] SHERYL SERRANO PATIENT [employer] MEDICARE SECONDARY (NO B EXC) UPREH S Jun 08, 2009 [id number] SHERYL SERRANO PATIENT [employer] MEDICARE SUPPLEMEN KAREN MEDIC ARE SUPPL EMENT Jun 08, 2009 [id number] SHERYL SERRANO PATIENT Selected Encounter This section includes the information on record at MD for the Encounter. Date/Time Encounter Type Encounter Description Reason Provider Source Feb 19, 2023 02:30 PM SELF CARE MNGMENT TRAINING OCCUPATIONAL THERAPY ICD-10-CM J44.9 Chronic obstructive pulmonary disease, unspecified KORABLINA,INN A A IHE Encounter Template Text not used by MD Assessments - Encounter Diagnoses This section includes the primary and secondary diagnoses documented for the Encounter. Date/Time Primary/Secondary Diagnosis Diagnosis Name Provider Source Feb 23, 2023 08:36 AM PRIMARY Chronic obstructive pulmonary disease, unspecified CHARLINE ALMONTE [facility] Plan of Treatment: Future Appointments (+ 6 months) and Future Tests (+/- 45 days) The Plan of Treatment section includes future care activities for the patient from all MD treatmentfacilities. This section includes future appointments and future orders which are active, pending or scheduled. Future Appointments This section includes appointments that were scheduled to occur 6 months from the date of the Encounter, up to a maximum of 20 appointments. The data comes from all MD treatment facilities. Appointment Date/Time Appointment Type Appointme nt Facility Name Mar 26, 2023 02:10 PM AMBULATORY - NONE [facility] Jul 23, 2023 01:00 PM AMBULATORY - MEDICINE [facility] Social History: Smoking Status (Most current) and Tobacco Use (All prior to encounter date) This section includes the most current, and the historical, smoking and tobacco- related health factors from the MD facility where the Encounter took place. Current Smoking Status This section includes the most current smoking, or tobacco-related health factor, from the MD facility where the Encounter took place. Date/Time Current Smoking Status Comment Billie alcaraz Dec 18, 2022 01:00 PM VA-TOBACCO FORMER USER [facility] Tobacco Use History This section includes a history of the smoking, or tobacco-related health factors, that were collected on or before the date of the Encounter. The data comes from the MD facility where the Encounter took place. Date/Time Smoking Status/Tobacco Use Comment F acility Dec 18, 2022 01:00 PM VA-TOBACCO QUIT 15 YRS OR MORE [facility] November 05, 2021 10:00 AM VA-TOBACCO FORMER USER [facility] November 05, 2021 10:00 AM VA-TOBACCO QUIT 15 YRS OR MORE [facility] Dec 10, 2018 12:57 PM VA-TOBACCO FORMER USER [facility] Dec 10, 2018 12:57 PM VA-TOBACCO QUIT 15 YRS OR MORE [facility] Feb 25, 2018 12:23 PM VA-TOBACCO FORMER USER [facility] Feb 25, 2018 12:23 PM VA-TOBACCO QUIT 15 YRS OR MORE [facility] Apr 10, 2015 02:55 PM FORMER TOBACCO USER 7Y OR GREATE R [facility] Apr 27, 2014 10:17 AM FORMER TOBACCO USER 7Y OR GREATE R [facility] Jun 18, 2006 07:23 AM FORMER TOBACCO USER 7Y OR GREATE R [facility] Advance Directives: All historical and current Section Date Range: From patient's date of to the date document was created. This section includes ALL of a patient's completed or amended MD Advance and Rescinded Directives. The entries below indicate that a directive exists for the patient, but an actual copy is not included with this document. The data comes from all MD facilities. Date Advance Directives Provider Source May 23, 2003 ADVANCE DIRECTIVE [facility] Encounter Notes: All associated encounter notes This section contains the clinical notes associated to the Encounter. Date/Time Encounter Note(s) Provider Source Feb 19, 2023 02:30 PM OCCUPATIONAL THERA PY CONSULT: LOCAL TITLE: OCCUPATIONAL THERAPY CONSULT STANDARD TITLE: OCCUPATIONAL THERAPY CONSULT DATE OF NOTE: FEB 19, 2023@14:30 ENTRY DATE: FEB 19, 2023@14:37:24 AUTHOR: MAGGIE EVANS COSIGNER: URGENCY: STATUS: COMPLETED OCCUPATIONAL THERAPY TELEHEALTH HOME EVALUATION Referring provider: RODRÍGUEZ MATHEWS Diagnosis for which patient is referred to OT: Chronic Obstructive Pulmonary Disease, unspecified(ICD-10-CM J44.9) In-home assessment required for: SG Precautions/Restrictions: NA Encounter: -OT evaluation (low complexity): 30 min -Self care management training (2): 35 min ASSESSMENT: (At the time of evaluation) Vet is a 82 yo referred for an OT home evaluation 2/2 to: difficulty with managing stairs to access primary bedroom and bathroom. Per report and chart review PMH includes diabetes mellitus, end stage renal disease, diabetic neuropathy, obstructive sleep apnea, chronic obstructive lung disease. From a functional standpoint, jaylin struggles with mobility and balance issues due to severe neuropathy, leg pain, and limited standing endurance; jaylin relies on VA- issued mwc, FWW, and rollator at all times. He lives with his in a multi- level house with steps to enter and primary living areas located on all 3 floors. Self-cares completed with Mod-Max A for dressing and showering, while all IADLs completed by jaylin's with vet helping as able with cooking and dishes. At this time vet appears appropriate for 2x stairglides to access primary bedroom on the upper floor and accessible shower in the basement. Full bathroom is available on the upper level but has a very deep soaking tub with a shower which jaylin will struggle with transferring into. Use of simple DME might not be feasible with 19 1/4 tub wall height. Step-in shower is available in the basement with shower chair, grab bars and HH shower hose in place. Additionally, recommend a med alert device due to jaylin being left alone, increased fall risk, and hearing deficits, all affecting his ability to call for help in case of emergency. 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 Printed handout to be shared with vet/family for reference. No further concerns identified at this time. 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) Adenoma of large intestine (SCT 15459882Vnrzkksr mellitus (SCT 40332255) Cataract, Senile, Unsp (ICD-9-CM 366.10)Coronary arteriosclerosis (SCT 80973949) Shared care - event management consultant and GP (SCT 268Diabetic renal disease (SCT 231729333) Ganglion of wrist (SCT 870247037) Obstructive Sleep Apnea of Adult (SCT 4917575329336) Hyperparathyroidism due to renal insuffiChronic cough (SCT 14231933) Oropharyngeal dysphagia (SCT 35363831) Hemorrhoid (SCT 23864230) Exposure to potentially hazardous substaChronic obstructive lung disease (SCT 26639774) Gastroesophageal reflux disease without Chronic rhinitis (SCT 46020257) End-stage renal disease (SCT 82080992) PLAN: No further OT needs at this time, discharge from OT. SHORT TERM GOAL to be met by end of session: will engage in an OT evaluation to improve safety and independence with use of adaptive equipment. - MET RECOMMENDATIONS: -2x SG to access primary bedroom on upper floor and accessible step in shower in the basement -[place] Wrist with printed handout -Modular ramp at front entrance (declined) PATIENT EDUCATION ON TREATMENT PLAN: Patient, Family indicates readiness to learn, verbalizes understanding, agreement and satisfaction with the treatment plan. Denies further questions. SUBJECTIVE/OBJECTIVE: Vet/ are interested in stairglides for vet to access primary bedroom and bathroom. CONTEXT *All measurements taken by vet's with verbal cuing via telehealth. SOCIAL HISTORY/HOME ENVIRONMENT: Lives with: Primary Support System: family Lives in: multi-level house HOUSE LAYOUT: Main: -kitchen, living room, dining room, half bath, laundry, 4 season room w/TV -ascending wooden steps to upper floor 9 steps - landing with 90 degree turn - 6 more steps 9 steps have right ascending handrail/banister 37 width 7 3/4 rise 10 depth 6 steps have left ascending handrail 36 width 7.5 rise 10 depth -descending carpeted steps into the basement 9 steps - landing with 90 degree turn - 6 more steps both sets of steps has right descending handrail 37.5 width 10 depth 7 rise 31 1/4 door opening width into the basement Upstairs: -3 bedrooms, full bathroom with soaking tub (deep tub) -descending staircase to the main floor Basement: -family room with full kitchen, bathroom with walk-in shower, furnace, storage and walk-out basement. -ascending staircase to the main level ENTRANCE: Front entrance: 2 concrete steps (9 + 7 1/4) + 7 threshold 36 wide door opening BATHROOM(S): main, upstairs, basement Half bathroom: main wood susu 31.5 door opening width vanity on L toilet on L washer and dryer on R side by side Full bath: upstairs 29.5 door opening width wooden parquet landing cabinet style sink on L partition wall toilet on L 18, oval wall on L when seated vet would not use toilet riser with arms tub/shower combo on R curtain deep soaking tub 19 1/4 tub wall height fixed shower on R 3/4 bathroom: basement ceramic tile susu 29 door opening width sink on R followed by toilet on R 18 high oval wall on R when seated walk-in shower curtain 6 1/4 threshold HH shower hose on L vertical grab bar on back wall vertical grab bar on faucet wall BEDROOM: upstairs carpeted susu alfaro-size regular bed vet does well with transfers using FWW, per KITCHEN: Main wood susu LIVING ROOM: Main wood susu area rugs lift chair DINING ROOM: main dining table for 8 chairs wood susu [employer] CURRENT LEVEL OF INDEPENDENCE: reports: -Dressing: Mod-Max A vet able to do shirts from sitting assists with support socks and pants -Grooming: Mod Ind vet manages dentures and shaving from mwc -Bathing: Mod-Max A getting very scared about a fall, tight on handrail vet able to wash most of himself while standing with grab bar just received a shower chair with arms and back, already took doors off and will give it a try -Feeding: Ind he still cooks - -Transferring: Mod Ind arm supports required -Mobility: -In-home: -mwc, vet able to walk ~60 ft with FWW, has walker on every floor -Community: -rollator -1 fall in the past 12 months (slipping out of bed) -Cooking: /vet also helps -Cleaning: /vet does dishes -Laundry: -Groceries: -Finances: /vet -Medication management: pre-sets meds 1x/wk and administers shots -Driving: vet does not drive could not tell one pedal from the other PAIN ASSESSMENT: leg pain reported at 4-5/10 on average due to neuropathy; standing endurance is limited to ~5 min OWNED ADAPTIVE EQUIPMENT: -FWW, mwc, rollator, crutches -shower chair -commode -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 shared that vet received a couple memory tests recently and could remember all 3 words; she notes that vet forgets things easier when he is tired -Per vet hates cell phones due to poor hearing -Vet appears to benefit from a med alert device due to being left alone (for a couple hours at a time about 3x/week), hearing deficits and mobility issues. 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 EMOTIONAL/BEHAVIORAL: Appropriate affect, Eye contact, Acknowledges others, Initiates/engages conversation, Calm/pleasant, Cooperative NEUROMUSCULAR FUNCTION Upper Extremities: within functional limits, pretty good strength Hand dominance: R-handed VISUAL/PERCEPTUAL FUNCTION: Acuity: wears reading glasses, some dry eye issues which is treated CVT Documentation- Visit conducted by synchronous telehealth. verbal consent obtained. Location/emergency number confirmed. Environment surveyed and all participants identified. Virtual conference room locked. Confirmed the following prior to start of visit: -Sabetha identified by Full name and Full Social Security number/Date of . - states he/she is in a safe and private environment suitable for the Telehealth encounter. -Visit conducted by telehealth into the home using: -Smart phone Email: [email or web address] Troubleshooting required during visit: none Others present: Jagruti Location of patient during session: [facility] [place] [address] Emergency phone number (c233): [phone] Veterans Crisis Line: & press #1 or text [phone] [facility] [employer] Help Desk ([employer]): [phone] or [phone]. OCCUPATIONAL THERAPY EVALUATION COMPLEXITY Identifying and reporting the complexity level of an evaluation focuses on the first three of these factors--profile and history, assessment and determination of deficits, and clinical decision making. These three factors must be scored and defensible documentation written to support the choice of a level. (Information taken from: https://www.aota.org) PROFILE AND HISTORY (including chart view) Brief history of medical and/or therapy records relating to the presenting problem (low complexity) ASSESSMENT & PERFORMANCE DEFICITS (select all that apply): Physical: Cognitive: 1-3 performance deficits (Low complexity) LEVEL OF CLINICAL DECISION MAKING Comorbidities affect occupational performance: Yes (moderate or high complexity) Modifications of tasks or assistance to enable completion of evaluation: Not necessary (Low complexity) Problem-focused assessment(s), consideration of a limited number of treatment options, presents with no comorbidities and modification of tasks or assistance is not necessary.(Low complexity) LOW COMPLEXITY Brief history of medical/or therapy records relating to the presenting problem. An assessment(s) that identifies 1-3 performance deficits that result in activity limitation and/or participating restrictions. Includes analysis of the occupational profile, analysis of date from problem- focused assessment(s), and consideration of a limited number of treatment options. Patient presents with no comorbidities that affect occupational performance. Modification of tasks or assistance with assessment(s) is not necessary to enable completion of evaluation component. /katey/ JOANNE DOWLING/Jason OCCUPATIONAL THERAPIST Signed: 03/02/2023 06:01 MAGGIE EVANS [facility]
--- OUTSIDE RECORDS SUMMARY | 2023-10-05 22:09 | XMS_ITS | Encounter Summary ---
Author Name [facility] of [facility] Organization [facility] Address [address], [place] [address] Support Name Relationship Address Phone SUZANNE SERRANO [...] A Feb 06, 2003 RR PART A [id number] JANETTEVannesa SHERYL PATIENT MEDICARE (WNR) MEDICARE (M) RR PART B Feb 06, 2003 RR PART B [id number] JANETTEVannesaSHERYL PATIENT MEDICARE (WNR) MEDICARE (M) PART A Feb 06, 2003 PART A [id number] SHERYL SERRANO PATIENT MEDICARE (WNR) MEDICARE (M) PART B Feb 06, 2003 PART B [id number] SHERYL SERRANO PATIENT MEDICARE PART D (WNR) MEDICARE () PART D Jun 08, 2022 PART D [id number] SHERYL SERRANO PATIENT [employer] MEDICARE SECONDARY (NO B EXC) UPREH S Jun 08, 2009 [id number] SHERYL SERRANO PATIENT [employer] MEDICARE SUPPLEMEN KAREN MEDIC ARE SUPPL EMENT Jun 08, 2009 [id number] SHERYL SERRANO PATIENT Selected Encounter This section includes the information on record at NM for the Encounter. Date/Time Encounter Type Encounter Description Reason Pro vider Source Mar 03, 2023 02:22 PM Outpatient Encounter COMMUNITY CARE CONSULT IHE Encounter Template Text not used by NM Plan of Treatment: Future Appointments (+ 6 months) and Future Tests (+/- 45 days) The Plan of Treatment section includes future care activities for the patient from all [place] treatmentfacilities. This section includes future appointments and future orders which are active, pending or scheduled. Future Appointments This section includes appointments that were scheduled to occur 6 months from the date of the Encounter, up to a maximum of 20 appointments. The data comes from all NM treatment facilities. Appointment Date/Time Appointment Type Appointme nt Facility Name Mar 26, 2023 02:10 PM AMBULATORY - NONE [facility] Jul 23, 2023 01:00 PM AMBULATORY - MEDICINE [facility] Social History: Smoking Status (Most current) and Tobacco Use (All prior to encounter date) This section includes the most current, and the historical, smoking and tobacco- related health factors from the NM facility where the Encounter took place. Current Smoking Status This section includes the most current smoking, or tobacco-related health factor, from the NM facility where the Encounter took place. Date/Time Current Smoking Status Comment Billie alcaraz Dec 18, 2022 01:00 PM VA-TOBACCO FORMER USER [facility] Tobacco Use History This section includes a history of the smoking, or tobacco-related health factors, that were collected on or before the date of the Encounter. The data comes from the NM facility where the Encounter took place. Date/Time Smoking Status/Tobacco Use Comment F acsilva Dec 18, 2022 01:00 PM VA-TOBACCO QUIT 15 YRS OR MORE [facility] November 05, 2021 10:00 AM VA-TOBACCO FORMER USER [facility] November 05, 2021 10:00 AM NM-TOBACCO QUIT 15 YRS OR MORE [facility] Dec 10, 2018 12:57 PM VA-TOBACCO FORMER USER [facility] Dec 10, 2018 12:57 PM VA-TOBACCO QUIT 15 YRS OR MORE [facility] Feb 25, 2018 12:23 PM VA-TOBACCO FORMER USER [facility] Feb 25, 2018 12:23 PM VA-TOBACCO QUIT 15 YRS OR MORE [facility] Apr 10, 2015 02:55 PM FORMER TOBACCO USER 7Y OR GREATE R [facility] Apr 27, 2014 10:17 AM FORMER TOBACCO USER 7Y OR GREATE R [facility] Jun 18, 2006 07:23 AM FORMER TOBACCO USER 7Y OR GREATE R [facility] Advance Directives: All historical and current Section Date Range: From patient's date of to the date document was created. This section includes ALL of a patient's completed or amended [place] Advance and Rescinded Directives. The entries below indicate that a directive exists for the patient, but an actual copy is not included with this document. The data comes from all [place] facilities. Date Advance Directives Provider Source May 23, 2003 ADVANCE DIRECTIVE [facility] Encounter Notes: All associated encounter notes This section contains the clinical notes associated to the Encounter. Date/Time Encounter Note(s) Provider Source Mar 03, 2023 02:22 PM PHARMACY NOTE: LOCAL TITLE: PHARMACY NON NM CARE MEDICATIONS STANDARD TITLE: PHARMACY NOTE DATE OF NOTE: MAR 03, 2023@14:22 ENTRY DATE: MAR 03, 2023@14:22:14 AUTHOR: AVRIL REYES EXP COSIGNER: URGENCY: STATUS: COMPLETED The [facility] Outpatient Pharmacy RECEIVED electronic prescription(s) faxed from a NON-NM Provider: OLIVIA HERNANDEZ MD. Regarding Patient: SHERYL SERRANO Date of : Feb Regarding PRESCRIPTION(s) written on 03/03/2023 for: Medication(s): GUAIFENESIN 100MG/5ML LIQUID The Non-VA provider is not authorized to write prescription(s) through the [facility] pharmacy. The Prescription request has been redirected via FAX to [facility]. /katey/ AVRIL REYES on call pharmacy technician Signed: 03/03/2023 14:22 AVRIL REYES [facility]
--- OUTSIDE RECORDS SUMMARY | 2023-10-05 22:09 | XMS_ITS ---
Author Name [facility] Address [address] [place] [address] Phone [phone] Organization [facility] e, NA DOCUMENT DISCLAIMER Multiple document versions may exist, please be sure you review the latest version. The information in the [facility] [place] Continuity of Care Document represents a summary of certain health and medical information. It may not contain the complete medical history for the patient and should be independently verified. The represented time in the document is Eastern Time. 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 Active September 15, 2023 Dependence on renal dialysis Z99.2 Active September 15, 2023 Type 2 diabetes mellitus wit h diabetic chronic kidney disease E11.22 Active October 30, 2018 End stage renal disease N18.6 Active October 30, 2018 ALLERGIES AND ADVERSE REACTIONS Substance Reaction Severity Status lisinopril Nausea/Vomiting Active lisinopril Unknown Active omeprazole Nausea/Vomiting Active omeprazole Unknown Active Lipitor Unknown Active metoclopramide Unknown Active HYDROCODONE Unknown Active SOCIAL HISTORY Tobacco Use Status Tobacco Type Unknown if ever consumed tobacco - 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 Characteristics No Information Available Characteristics of Home environment No Information Available MEDICATIONS Prescribed Medications for Dialysis Treatments Medication Instructions Dosage Route Start Date End Date Stat us Heparin Sodium (Porcine) 1,000 Units/mL Systemic Bolus, Every Treatment, Total treatment minutes 210 2000 units Intravenous - push October 05, 2023 October 03, 2024 Active Home Medications Medication Instructions Dosage Route Start Date End Date Stat albuterol sulfate 90 mcg/actuation Inhale using inhaler every four hours as needed 2 puff INHALATION January 07, 2023 Active Milo Low Dose Aspirin 81 mg Take by mouth once a day 1 tablet ORAL October 29, 2020 Active Claritin 10 mg Take by mouth once a day 1 tablet ORAL January 07, 2023 Active Co Q-10 100 mg Take by mouth once a day 1 capsule ORAL January 07, 2023 Active Dialyvite [id number]-mg Take by mouth every evening with meals 1 tablet ORAL January 07, 2023 Active Flonase Allergy Relief 50 mcg/actuation [place] intranasally once a day 1 spray NASAL January 07, 2023 Active gentamicin in NaCl (iso-osm) 80 mg/100 mL every two weeks as directed 40 mg INTRAVENOUS October 02, 2023 Active hydrocortisone 2.5% Apply to affected area twice a day as needed TOPICAL January 07, 2023 Active Lantus U-100 Insulin 100 unit/mL Inject subcutaneously every evening 18 unit SUBCUTANEOUS October 29, 2020 Active Levo-T 175 mcg Take by mouth once a day 1 tablet ORAL October 29, 2020 Active MegaRed [place]-3 Krill Oil 1,000-230-60 mg Take by mouth once a day 1 capsule ORAL January 07, 2023 Active methyl salicylate-menthol 15-10% Apply to affected area three times a day as needed for pain TOPICAL January 07, 2023 Active Milk of Magnesia 400 mg/5 mL Take by mouth once a day as needed 15-30 ml ORAL January 07, 2023 Active nitroglycerin 0[address] under tongue as directed as needed for pain 1 tablet SUBLINGUAL January 07, 2023 Active Novolog FlexPen U-100 Insulin 100 unit/mL (3 mL) Inject subcutaneously three times a day with meals 5 unit SUBCUTANEOUS October 29, 2020 Active pravastatin 80 mg Take by mouth at bedtime 1 tablet ORAL January 07, 2023 Active Restasis 0.05% Instill into both eyes twice a day 1 drop OPHTHALMIC January 07, 2023 Active Robitussin Cough-Chest Paul DM 5-100 mg/5 mL Take by mouth every eight hours as needed 5 ml ORAL January 07, 2023 Active senna 8.6 mg Take by mouth twice a day as directed 2 capsule ORAL January 07, 2023 Active Singulair 10 mg Take by mouth at bedtime 1 tablet ORAL January 07, 2023 Active tiotropium bromide 18 mcg Inhale using nebulizer once a day 1 capsule INHALATION January 07, 2023 Active Tylenol Arthritis Pain 650 mg Take by mouth every eight hours as needed for pain 1 tablet ORAL January 07, 2023 Active Vitamin D3 50 mcg (2,000 unit) Take by mouth once a day 1 capsule ORAL January 07, 2023 Active vitamin E (dl, acetate) 180 mg (400 unit) Take by mouth once a day 1 capsule ORAL January 07, 2023 Active Wixela Inhub 100-50 mcg/dose Inhale as directed twice a day 1 puff INHALATION January 07, 2023 Active VITAL SIGNS Post-Treatment Vital Signs Vital Sign Value Date / Time Blood Pressure-sitting 114/56 mmHg October 05, 2023 11:30 AM Heart Rate 75 beats per minute October 04 11:30 AM Respiratory Rate 18 breaths per minute October 05, 2023 11:30 AM Temperature 97.8 deg. F October 05, 2023 1 1:30 AM Weight Vital Sign Value Date / Time Estimated Dry Weight 94.5 kg October 04 024 11:59 PM Pre-Dialysis 99.00 kg October 05, 2023 1 1:30 AM Post-Dialysis 96.20 kg October 05, 2023 1 1:30 AM Other Other Value Date / Time Height 183 cm October 02, 2023 1 2:00 AM [facility] LAB RESULTS Hematology Result Type Result Value Relevant Referen ce Range Interpretation Date Neutrophils 67.2 % 40.0 - 75.0 % - April Platelets 128 1000/mcL 130 - 400 1000/mcL Low [facility] 2022 TIBC 199 mcg/dL 185 - 515 mcg/dL - April 08, 2023 UIBC (Calc) 26 mcg/dL 155 - 355 mcg/dL Low Novembe r 2022 Folate, Serum > 24.0 ng/mL No Reference Ran ge Provided - April 08, 2023 Transferrin Sat. (Calc) 87 % 20 - 55 % High April 08 Ferritin 992 ng/mL 22 - 322 ng/mL High April WBC (No Diff) 6.07 1000/mcL 4.80 - 10.80 1000/mcL - April 08, 2023 Neutrophils 60.5 % 40.0 - 75.0 % - May WBC (No Diff) 4.60 1000/mcL 4.80 - 10.80 1000/mcL Low May 13, 2023 UIBC (Calc) 64 mcg/dL 155 - 355 mcg/dL Low mb r 2022 Transferrin Sat. (Calc) 66 % 20 - 55 % High May 13 3 Platelets 145 1000/mcL 130 - 400 1000/mcL - 2022 TIBC 188 mcg/dL 185 - 515 mcg/dL - May 13, 2023 Metabolic/Renal Result Type Result Value Relevant Reference Range Interpre tation Date Vitamin B12 815 pg/mL 211 - 911 pg/mL - October 08, 2022 HD Adequacy Result Type Result Value Relevant Reference Range Interpre tation Date Krt/V 0.00 No Reference Range Provided - April 08, 2023 Krt/V 0.00 No Reference Range Provided - May 13, 2023 Bone/Mineral Result Type Result Value Relevant Referen ce Range Interpretation Date Magnesium 1.9 mg/dL 1.6 - 2.6 mg/dL - October 13 023 Vitamin D 25 Hydroxy 65.3 ng/mL 30.0 - 100.0 ng/mL - October 13, 2022 Magnesium 1.9 mg/dL 1.6 - 2.6 mg/dL - December 10, 2022 Magnesium 1.9 mg/dL 1.6 - 2.6 mg/dL - March Magnesium 1.9 mg/dL 1.6 - 2.6 mg/dL - April 08, 2023 Vitamin D 25 Hydroxy 66.6 ng/mL 30.0 - 100.0 ng/mL - April 08, 2023 PTH-Intact, Plasma 178 pg/mL 16 - 80 pg/mL High Nov 2022 Immunochemistry Result Type Result Value Relevant Reference Range Interpre tation Date HCV s/co ratio 0.04 0.00 - 0.79 - October 13 023 Trace Elements Result Type Result Value Relevant Reference Range Interpre tation Date Aluminum 5 mcg/L 0 - 10 mcg/L - December 10 Aluminum < 5 mcg/L 0 - 10 mcg/L - April 08, 2023 Infectious Diseases Result Type Result Value Relevant Referen ce Range Interpretation Date Hep B core Ab Total (anti-HBc) Negative No Reference Range Provided - October 13, 2022 HCV Ab (anti-HCV) Nonreactive No Reference R martha Provided - October 13, 2022 Hep B Surface Ab (anti-HBs) 25 mIU/mL No Reference Range Provided - October 13, 2022 Hep B Surface Ag (HBsAg) Negative No Reference Range Provided Normal September 14, 2023 DIALYSIS PRESCRIPTION Conventional Hemodialysis Data Element Value Order Date/Time October 05, 2023 Frequency 3X Week Treatment Days MonWedFri Dialyzer [id number] Optiflux Treatment Time (Total Minutes) 210 min Blood Flow Rate (mL/min) 450 mL/min Dialysate Flow Rate Manual 800 Estimated Dry Weight 94.5 kg Dialysate Concentrate 3.0 K, 2.5 Ca, 1.0 Mg, 100 Dextrose (G3251) Sodium (mEq/L) 135 mEq/L Bicarb Machine Setting (mEq/L) 34 mEq/L Dialysis Access Hemodialysis-AV Fist lona-Standard, Left Forearm, Other/Unknown Arterial Needle Size 15g1 Venous Needle Size 15g1 IMMUNIZATIONS Vaccine Date Dose Route Status Flu Vaccine - [place]ubl[place] Quadrivalent March 23, 2023 0.5 mL Intramuscular Completed [employer] COVID-19 Vac cine, Bivalent, Booster March 17, 2022 0.3 mL Intramuscular Completed HEPLISAV-B, series 4 of 4 March 25, 2021 20.0 mcg Intr amuscular Completed HEPLISAV-B, series 3 of 4 January 28, 2021 20.0 mcg Intra muscular Completed HEPLISAV-B, series 2 of 4 December 31, 2020 20.0 mcg Intramu scular Completed HEPLISAV-B, series 1 of 4 November 26, 2020 20.0 mcg Intramu scular Completed TRANSPLANT WAITLIST STATUS No Information on Transplant Waitlist Status ADVANCE DIRECTIVES Directive Description Ordered By Effective Date Resuscitation status Full Code Darren Domonique Oct 05, 2023 DIALYSIS TREATMENTS Conventional Hemodialysis Date Pre-Treatment Vitals Post-Treatment Sylvia ls Duration (hr) BFR (mL/min) Dialysate Dialyzer Dialysis Access Meds Admin October 05, 2023 Weight 99.00 kg Weight 96.20 kg 03:30:00 420 3.0 K, 2.5 Ca, 1.0 Mg, 100 Dextrose (G3251) 180nre Optifl ux Blood Pressure-sitting 91/46 mmHg Blood Pressure-sit ting 114/56 mmHg Heart Rate 90 beats per minute Heart Rate 75 beats per minute Respiratory Rate 16 breaths per minute Respiratory Rate 18 breaths per minute Temperature 97.7 deg. F Temperature 97.8 deg. F
--- OUTSIDE RECORDS SUMMARY | 2023-10-05 22:09 | XMS_ITS | Continuity of Care Document ---
Author Name [facility] Organization [facility] Care Team Providers Care Installation Engineer Name Role Phone [facility] Unavailable Unavailable Problems Combined list of problems from Department of Defense and Veterans 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 It does not include entries that were removed or entered in error. Problem Status Onset Date Problem Type Date of Resolution Comments Source Adenoma of large intestine Active Condition Jan 17, 2005 Entered By: TOMMY SARMIENTO Comment: colonoscopy and polypectomy 12/10, tubular adenoma at [facility] Cataract, Senile, Unsp Active Condition [facility] Chronic cough Active Condition [facility] Chronic obstructive lung disease Active Condition [facility] Chronic rhinitis Active Condition [facility] Coronary arteriosclerosis Active Condition Nov 10 7 Entered By: LIZZETTE WEI Comment: s/p [id number] at [facility] in 07/15 [facility] Diabetes mellitus Active Condition [facility] Diabetic neuropathy Active Condition [facility] Diabetic renal disease Active Condition Dec 02, 2018 Entered By: CARLOS DALTON Comment: 10/2018: started hemodialysis @ [facility] in 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 Shared care - infrastructure consultant and GP Active Condition Dec 02 Entered By: CARLOS DALTON Comment: [facility] [phone] ov 2020 Entered By: CARLOS DALTON Comment: Converter Operator: Dr James Pérez [phone] ov 2020 Entered By: CARLOS DALTON Comment: [facility] Cough (ICD-9-CM 786.2) Inactive Condition 03/23/2013 [facility] Diabetic Foot Ulcer (ICD-9-CM 250.80/707.8) Inactive Condition 03/23/2013 [facility] Diagnosis: ICD-10-CM H04.129 Dry eye syndrome of unspecified lacrimal gland Active Diagnosis [facility] Diagnosis: ICD-10-CM Z46.1 Encounter for fitting and adjustment of hearing aid Active Diagnosis [facility] Diagnosis: ICD-10-CM N18.6 End stage renal disease Active Diagnosis [facility] Diagnosis: ICD-10-CM R26.9 Unspecified abnormalities of gait and mobility Active Diagnosis [facility] Diagnosis: ICD-10-CM J44.9 Chronic obstructive pulmonary disease, unspecified [facility] Diagnosis: ICD-10-CM Z65.8 Oth problems related to psychosocial circumstances Active Diagnosis [facility] Diagnosis: ICD-10-CM R05.3 Chronic cough Active Diagnosis [facility] JERRY [facility] Diagnosis: ICD-10-CM G47.33 Obstructive sleep apnea (adult) (pediatric) Active Diagnosis [facility] Diagnosis: ICD-10-CM Z71.9 Counseling, unspecified Active Diagnosis [facility] Medications Combined list of outpatient medications from Department of Defense and Veterans 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Medications provided include 1) outpatient medications from the last 15 months, and 2) patient-reported medications. Medication Details Route Status Patient Instructions Prescription Expires Prescription Number Last Dispense Date Ordering Provider Order Date Order Qty Source ALBUTEROL 90MCG/ACTUA T (CFC-F) INHL,ORAL,8 .5GM DOSE COUNTER INHALE 2 PUFFS BY INHALATI ON EVERY 4 HOURS NEEDED FOR BREATHIN G SHAKE WELL (FOR IMMEDIAT E RELIEF). INHALA TION 08/21/2023 [id number] 4 CASANDRA DALTON 2022 2 [facility] AZELASTINE HCL 137MCG/SPRA Y INHL,NASAL, 30ML SPRAY 1 PUFF IN EACH NOSTRIL TWICE A DAY FOR NASAL SYMPTOMS NASAL ACTIVE 01/13/2024 [id number] 3 RODRÍGUEZ MATHEWS 2022 2 [facility] CALCIUM CARBONATE TAB,CHEWABL E CHEW ONE TABLET BY MOUTH FOUR TIMES A DAY NEEDED ORALLY ACTIVE RODRÍGUEZ MATHEWS 2022 [facility] COENZYME Q10 CAP/TAB TAKE ONE TABLET BY MOUTH EVERY DAY ORALLY ACTIVE CASANDRA DALTON 2012 [facility] CYCLOSPORIN E 0.05% (PF) EMULSION,OP H,0.4ML INSTILL 1 DROP BOTH EYES TWICE A DAY BOTH EYES ACTIVE 08/10/2024 [id number] 4 FB-PURFEE RST,MATHEW OD 2023 60 [facility] CYCLOSPORIN E 0.05% (PF) EMULSION,OP H,0.4ML INSTILL 1 DROP BOTH EYES TWICE A DAY BOTH EYES 03/25/2023 [id number] 3 FB-PURFEE RST,MATHEW OD 2021 60 [facility] DEXTROMETHO RPHAN HBR 10MG/GUAIFE NESIN 100MG/5ML (AF & SF) LIQUID TAKE 1 TEASPOON FUL BY MOUTH EVERY 4 HOURS NEEDED FOR COUGH AND CONGESTI ON ORALLY ACTIVE 03/09/2024 [id number] 4 RODRÍGUEZ MATHEWS 2022 120 [place] [facility] DIALYVITE TAB TAKE 1 TABLET BY MOUTH EVERY DAY ORALLY ACTIVE 07/02/2024 [id number] 4 RODRÍGUEZ MATHEWS 2023 100 [place] [facility] DIALYVITE TAB TAKE 1 TABLET BY MOUTH EVERY DAY ORALLY DISCONT INUED 09/10/2023 [id number] 4 RODRÍGUEZ MATHEWS 2022 100 [facility] DM 10/GUAIFENE SN 100MG/5ML (ALC-F/SF)S YR TAKE 5 ML (1 TEASPOON FUL) BY MOUTH EVERY 8 HOURS NEEDED FOR COUGH ORALLY DISCONT INUED 08/21/2023 [id number] 3 CASANDRA DALTON 2022 360 [facility] FLUTICASONE 250MCG/SALM ETEROL 50MCG INHL,ORAL,D ISKUS,60 INHALE 1 PUFF BY INHALATI ON TWICE A DAY TO PREVENT TROUBLE BREATHIN G -RINSE MOUTH AFTER USING INHALA TION 09/23/2023 [id number] 4 RODRÍGUEZ MATHEWS 2022 3 [facility] HYDROCORTIS ONE 2.5% CREAM,TOP APPLY THIN LAYER TOPICALL Y EVERY DAY NEEDED HEMORRHO ID TOPICA LLY 01/09/2023 [id number] 3 RODRÍGUEZ MATHEWS 2022 30 [facility] INSULIN,ASP ART,HUMAN (EQV-NOVOLO G) 100 UNIT/ML,FLE XPEN,3ML INJECT 5 UNITS UNDER THE SKIN TWICE A DAY TO DECREASE BLOOD SUGAR-- INJECT IMMEDIAT LINDA BEFORE MEAL (PEN FILL APPROVED ) REPLACES REGULAR INSULIN PEN SUBCUT ANEOUS 05/13/2023 [id number] 3 RODRÍGUEZ MATHEWS 2021 5 [facility] INSULIN,GLA RGINE,HUMAN 100 UNIT/ML INJ,SOLOSTA R,3ML INJECT 18 UNITS UNDER THE SKIN EVERY DAY FOR DIABETES DISCAR D PEN 28 DAYS AFTER INITIAL USE SUBCUT ANEOUS DISCONT INUED 05/13/2023 [id number] 3 RODRÍGUEZ MATHEWS 2021 5 [facility] INSULIN,GLA RGINE,HUMAN 100 UNIT/ML INJ,SOLOSTA R,3ML INJECT 18 UNITS UNDER THE SKIN EVERY DAY FOR DIABETES DISCAR D PEN 28 DAYS AFTER INITIAL USE SUBCUT ANEOUS DISCONT INUED (EDIT) 06/06/2024 [id number] 4 RODRÍGUEZ MATHEWS 2023 5 [facility] INSULIN,GLA RGINE-YFGN 100UNIT/ML INJ PEN,3ML INJECT 18 UNITS UNDER THE SKIN EVERY DAY FOR DIABETES DISCAR D PEN 28 DAYS AFTER INITIAL USE SUBCUT ANEOUS ACTIVE 06/09/2024 [id number] 4 RODRÍGUEZ MATHEWS 2023 5 [facility] LEVOTHYROXI NE NA 175MCG TAB (SYNTHROID) TAKE ONE TABLET BY MOUTH EVERY DAY FOR THYROID [facility] 08/01[facility]2023 [id number] 3 RODRÍGUEZ MATHEWS 2022 90 [place] [facility] LEVOTHYROXI NE NA 175MCG TAB (SYNTHROID) TAKE ONE TABLET BY MOUTH EVERY DAY FOR THYROID [facility] 07/30/2023 [id number] 3 RODRÍGUEZ MATHEWS 2022 90 [place] [facility] LEVOTHYROXI NE NA 200MCG TAB (SYNTHROID) TAKE ONE TABLET BY MOUTH EVERY DAY FOR THYROID ORALLY ACTIVE 01/13/2024 [id number] 4 RODRÍGUEZ MATHEWS 2022 90 [place] [facility] LORATADINE 10MG TAB TAKE ONE TABLET BY MOUTH EVERY DAY NEEDED ORALLY ACTIVE RODRÍGUEZ MATHEWS 2022 [place] [facility] MARINE LIPID (FISH OIL) CAP,ORAL TAKE 1200MG BY MOUTH EVERY DAY ORALLY ACTIVE CASANDRA DALTON 2010 [place] [facility] MONTELUKAST NA 10MG TAB TAKE ONE TABLET BY MOUTH EVERY DAY ORALLY ACTIVE 05/08/2024 [id number] 4 CASANDRA DALTON 2022 90 [place] [facility] MONTELUKAST NA 10MG TAB TAKE ONE TABLET BY MOUTH EVERY DAY ORALLY DISCONT INUED 05/01/2023 [id number] 3 CASANDRA DALTON 2021 90 [place] [facility] NITROGLYCER IN 0.4MG TAB,SUBLING UAL DISSOLVE ONE TABLET UNDER THE TONGUE PRN SUBLIN GUAL ACTIVE CASANDRA DATLON 2010 [facility] PANTOPRAZOL E NA 40MG TAB,EC TAKE ONE TABLET BY MOUTH EVERY DAY ONE-HALF HOUR BEFORE EATING. ORALLY ACTIVE 07/02/2024 [id number] 4 CASANDRA DALTON 2023 90 [facility] PANTOPRAZOL E NA 40MG TAB,EC TAKE ONE TABLET BY MOUTH EVERY DAY ONE-HALF HOUR BEFORE EATING. ORALLY DISCONT INUED 05/29/2023 [id number] 3 CASANDRA DALTON 2022 90 [facility] PRAVASTATIN NA 40MG TAB TAKE ONE TABLET BY MOUTH AT BEDTIME FOR CHOLESTE ROL ORALLY ACTIVE 06/06/2024 [id number] 4 RODRÍGUEZ MATHEWS 2023 90 [facility] PRAVASTATIN NA 40MG TAB TAKE ONE TABLET BY MOUTH AT BEDTIME FOR CHOLESTE ROL ORALLY DISCONT INUED 06/05/2024 [id number] 3 CASANDRA DALTON 2022 90 [facility] PRAVASTATIN NA 40MG TAB TAKE ONE TABLET BY MOUTH AT BEDTIME FOR CHOLESTE ROL ORALLY DISCONT INUED 05/29/2023 [id number] 3 CASANDRA DALTON 2021 90 [facility] TIOTROPIUM 2.5MCG/ACTU AT INHL,ORAL,6 0D,4GM INHALE TWO PUFFS BY INHALATI ON EVERY DAY FOR ASTHMA INHALA TION ACTIVE 08/26/2024 [id number] 4 [place] 2023 1 [facility] TIOTROPIUM 2.5MCG/ACTU AT INHL,ORAL,6 0D,4GM INHALE TWO PUFFS BY INHALATI ON EVERY DAY FOR ASTHMA INHALA TION DISCONT INUED 10/29/2023 [id number] 4 [place] 2022 1 [facility] VANICREAM APPLY THIN LAYER TOPICALL Y EVERY DAY FOR DRY SKIN TOPICA LLY ACTIVE 12/19/2023 [id number] 4 RODRÍGUEZ MATHEWS 2022 1362 [facility] VANICREAM APPLY TO DRY SKIN TOPICALL Y EVERY DAY NEEDED FOR DRY SKIN TOPICA LAUREN TOUSSAINT INUED 05/01/2023 [id number] 3 SHACASANDRA Perez 2021 908 [facility] VITAMIN E 400UNT CAP TAKE 1 CAPSULE BY MOUTH EVERY DAY ORALLY ACTIVE [facility] 2013 [facility] ZINC SULFATE TAB TAKE 50MG BY MOUTH EVERY DAY ORALLY ACTIVE [facility] 2014 [facility] Allergies, Adverse Reactions, Alerts Combined list of allergies from Department of [facility] ([place], [place]) and Veterans 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 It does not include entries that were removed or entered in error. Substance Category Reaction Severity Reaction type Status Date Reported Comments Source ATORVASTATIN Propensity to adverse reactions to drug (finding) Pain in lower limb active 9 [facility] DOXYCYCLINE Propensity to adverse reactions to drug (finding) PRURITIS, Eruption active 4 [facility] HYDROCODONE Propensity to adverse reactions to drug (finding) Disorientat ed, Drowsy, Hallucinati ons active 3 [facility] LIPITOR Propensity to adverse reactions to drug (finding) Cramp active 0 [facility] LISINOPRIL Propensity to adverse reactions to drug (finding) Abdominal discomfort active 7 [facility] METOCLOPRAMI DE Propensity to adverse reactions to drug (finding) Gynecomasti a active 0 [facility] OMEPRAZOLE Propensity to adverse reactions to drug (finding) Diarrhea active 0 [facility] SIMVASTATIN Propensity to adverse reactions to drug (finding) MUSLCE CRAMPS active 4 [facility] Immunizations Combined list of available immunizations from the Department of [facility] ([place], [place]) and [facility] 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 Immunization Series Date Given Administered By Site Reaction Lot Number CVX Code Drug Pull Through Hooker Status Comments Source TDAP 2022 [facility] RIGHT DELTO ID [id number] 115 complet ed [facility] INFLUENZA, UNSPECIFIED FORMULATION 2021 88 complet ed [facility] INFLUENZA, UNSPECIFIED FORMULATION 2020 88 complet ed [facility] ZOSTER RECOMBINANT 2 2020 187 complet ed [facility] ZOSTER RECOMBINANT 1 2019 187 complet ed [facility] INFLUENZA, SEASONAL, INJECTABLE, PRESERVATIVE FREE 2019 140 complet ed [facility] INFLUENZA, UNSPECIFIED FORMULATION 2018 88 complet ed [facility] INFLUENZA, SEASONAL, INJECTABLE, PRESERVATIVE FREE 2017 140 complet ed [facility] INFLUENZA, HIGH DOSE SEASONAL 2016 135 complet ed [facility] INFLUENZA, HIGH DOSE SEASONAL 2014 135 complet ed [facility] PNEUMOCOCCAL CONJUGATE PCV 13 2014 133 complet ed [employer] [id number] 08/22 [facility] INFLUENZA, UNSPECIFIED FORMULATION 2013 88 complet ed [facility] INFLUENZA, UNSPECIFIED FORMULATION 2012 88 complet ed [facility] PNEUMOCOCCAL, UNSPECIFIED FORMULATION 2012 109 complet ed [employer], [id number], [facility] TDAP 2012 115 complet ed [facility] TDAP 2012 115 complet ed [facility] ZOSTER LIVE 2012 121 complet ed [employer] Lot#[id number] [id number] 11APR 14 [facility] INFLUENZA, UNSPECIFIED FORMULATION 2011 88 complet ed [facility] INFLUENZA, UNSPECIFIED FORMULATION 2010 88 complet ed [facility] INFLUENZA, UNSPECIFIED FORMULATION 2009 88 complet ed [facility] INFLUENZA, UNSPECIFIED FORMULATION 2008 88 complet ed [facility] TD(ADULT) UNSPECIFIED FORMULATION 2007 139 complet ed [facility] INFLUENZA (HISTORICAL) 2006 88 complet ed [facility] INFLUENZA (HISTORICAL) 2005 88 complet ed [facility] INFLUENZA, UNSPECIFIED FORMULATION 2004 88 complet ed [facility] INFLUENZA, UNSPECIFIED FORMULATION 2003 88 complet ed [facility] PNEUMOCOCCAL, UNSPECIFIED FORMULATION 2003 109 complet ed [facility] TD(ADULT) UNSPECIFIED FORMULATION 2003 139 complet ed due next year [facility] INFLUENZA (HISTORICAL) 2002 88 complet ed pt states he had a Influenza vaccinati on this yr [facility] TD(ADULT) UNSPECIFIED FORMULATION 1994 139 complet ed [facility] Vital Signs Combined list of inpatient and outpatient Vital Signs from Department of Defense and Veterans [facility], ranging from 12 months to all on record, depending upon the facility. Vital Sign Value Date Comments Source Encounters Combined list of: 1) Encounters from Department of Veterans Affairs facilities going back up to thelast 18 months. 2) Encounters from the Department of Defense facilities going back up to 280 months. Location Location Details Encounter Type Encounter Number Reason For Visit Attending Provider ADM Date DC Date Status Disposition Source [facility] 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
PAULETTE CHAUHAN 04/08 [facility] [place] [facility] Outpatient Encounter [id number] 04/10 [facility] [place] [facility] Outpatient Encounter [id number] 04/25 [facility] [place] [facility] Outpatient Encounter [id number] 04/25 [facility] [place] [facility] Outpatient Encounter [id number] 05/06 [facility] [place] [facility] Outpatient Encounter [id number] 05/08 [facility] CASE MANAGEMENT [id number] JENNIFER THAPA [facility] 05/13 [facility] Outpatient Encounter [id number] 05[facility]20 [facility] Outpatient Encounter [id number] 06/03 [facility] [place] [facility] Outpatient Encounter [id number] 06/04 [place] [facility] Outpatient Encounter [id number] 06/05 [facility] [place] [facility] Outpatient Encounter [id number] 06/08 [place] [facility] [place] [facility] Outpatient Encounter [id number] 06/08 [place] [facility] [place] [facility] Outpatient Encounter [id number] 06/23 [place] [facility] [place] [facility] Outpatient Encounter [id number] 08/06 [place] [facility] [place] [facility] Outpatient Encounter [id number] 08/11 [place] [facility] [place] [facility] Outpatient Encounter [id number] 08/11 [place] [facility] [place] [facility] Outpatient Encounter [id number] 08/14 [place] [facility] [place] [facility] HC PRO PHONE CALL 5-10 MIN [id number] Diagnos is: ICD-10- CM G47.33 Obstruc tive sleep apnea (adult) (pediat jocelynn)
KARON YOUNG 08/15 [place] [facility] En[facility] [id number] 08/26 [facility] [place] [facility] Outpatient Encounter [id number] 10/27 [place] [facility] [place] [facility] PT EDUCATION NOC INDIVID [id number] Diagnos is: ICD-10- CM G47.33 Obstruc tive sleep apnea (adult) (pediat jocelynn)
KINGS ROCHA 10/28 [place] [facility] [place] [facility] Outpatient Encounter [id number] 11/05 [facility] [place] [facility] Outpatient Encounter [id number] 11/26 [facility] [place] [facility] Outpatient Encounter [id number] MARY ELLEN MAY CHRIST Mccall 12/10 [place] [facility] [place] [facility] Outpatient Encounter [id number] 12/10 [facility] [place] [facility] Outpatient Encounter [id number] 12/10 [facility] OFFICE O/P EST HI 40-54 MIN [id number] Diagnos is: ICD-10- CM R05.3 Chronic cough<b r/> Saskia MATHEWS H 12/18 [facility] [place] [facility] Outpatient [facility]counter [id number] 01/07 [facility] [place] [facility] Outpatient Encounter [id number] 02/05 [facility] [place] [facility] Outpatient Encounter [id number] 02/11 [facility] [place] [facility] PRO PHONE CALL 21-30 MIN [id number] Diagnos is: ICD-10- CM Z65.8 Oth problem s related to psychos ocial circums tances< br/> VESNA GRAY 02/11 [facility] [place] [facility] Outpatient Encounter [id number] DEBRA PINTO 02/18 [facility] SELF CARE MNGMENT TRAINING [id number] Diagnos is: ICD-10- CM J44.9 Chronic obstruc tive pulmona ry disease , unspeci fied
MAGGIE EVANS 02/19 [facility] [place] [facility] Outpatient Encounter [id number] 03/03 [place] [facility] [place] [facility] Outpatient Encounter [id number] Diagnos is: ICD-10- CM R26.9 Unspeci fied abnorma lities of gait and mobilit y
NANCY HOWARD M 03/04 [place] [facility] [place] [facility] Outpatient Encounter [id number] 03/06 [place] [facility] [place] [facility] Outpatient Encounter [id number] 03/26 [place] [facility] [place] [facility] TARGETED CASE MANAGEMENT [id number] Chani PERAZA L 05/04 [place] [facility] [place] [facility] PRO PHONE CALL 5-10 MIN [id number] Diagnos is: ICD-10- CM N18.6 End stage renal disease
FADUMO HERNANDEZ K 05/05 [facility] [place] [facility] TARGETED CASE MANAGEMENT [id number] Chani PERAZA 05/05 [facility] [place] [facility] TARGETED CASE MANAGEMENT [id number] Chani PERAZA L 05/13 [place] [facility] [id number] JENNIFER THAPA [facility] 05/13 [facility] Outpatient Encounter [id number] 05/13 [facility] Outpatient Encounter [id number] GUAADLUPE ACOSTA 05/14 [facility] [place] [facility] CASE MANAGEMENT [id number] Chani PERAZA L 05/19 [place] [facility] Encounter [id number] 05/19 [facility] Outpatient Encounter [id number] ARYCHARLEYChani Gomez 05/27 [facility] Out[facility]counter [id number] 05/28 [facility] Outpatient Encounter [id number] 05/28 [facility] Outpatient Encounter [id number] ANSELMO ARMSTRONG NANCY A 06/02 [facility] Outpatient Encounter [id number] 06/02 [facility] Outpatient Encounter [id number] DARRELL LOO 06/17 [facility] Outpatient Encounter [id number] 06/18 [facility] Outpatient Encounter [id number] Jared RUVALCABA 06/25 [facility] HEARING AID CHECK BOTH EARS [id number] Diagnos is: ICD-10- CM Z46.1 Encount er for fitting and adjustm ent of hearing aid<br/ > DANELLE MAYFIELD 07/23 [facility] PRO PHONE CALL 5-10 MIN [id number] Diagnos is: ICD-10- CM H04.129 Dry eye syndrom e of unspeci fied lacrima l gland<b r/> FADUMO HERNANDEZ ICA K 08/09 [facility] Social History Combined list of available smoking, tobacco, and 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 Social History Type Response Date Comment Sourc e Tobacco smoking status NHIS ME-TOBACCO FORMER USER 12/18/2022 [facility] History of tobacco use ME-TOBACCO QUIT 1 5 YRS OR MORE 12/18/2022 [facility] History of tobacco use VA-TOBACCO FORMER USER 11/05/2021 [facility] History of tobacco use VA-TOBACCO QUIT 1 5 YRS OR MORE 07/28/2019 [facility] History of tobacco use VA-TOBACCO FORMER USER 12/10/2018 [facility] History of tobacco use VA-TOBACCO QUIT 1 5 YRS OR MORE 02/25/2018 [facility] History of tobacco use FORMER TOBACCO US ER 7Y OR GREATER 04/10/2015 [facility] History of tobacco use FORMER TOBACCO US ER 7Y OR GREATER 04/27/2014 [facility] History of tobacco use FORMER TOBACCO US ER 7Y OR GREATER 06/18/2006 [facility] Plan of Care List of future care activities from Department [facility] facilities. Additional future care activities may be listed in the Assessment and Plan section. Date/Time Care Activity Care Activity Detail Facili ty 10/15/2023 AMBULATORY - SURGERY AMBULATORY - SURGERY [facility] Advance Directives List of completed, amended, or rescinded Advance Directives on record at Department [facility] 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 An actual copy of the Directive is not included. Date Advance Directive Provider Source 05/23/2003 ADVANCE DIRECTIVE KINGS ANDREW [facility]
--- OUTSIDE RECORDS SUMMARY | 2023-10-05 22:10 | XMS_ITS | Encounter Summary ---
Author Name [facility] of [facility] Organization [facility] Address [address], [place] [address] Support Name Relationship Address Phone SUZANNE SERRANO [...] A Feb 06, 2003 RR PART A [id number] [phone] MIKMOLLYRUDDY GranadoARD PATIENT MEDICARE (WNR) MEDICARE (M) RR PART B Feb 06, 2003 RR PART B [id number] [phone] MIKMOLLYRUDDY GranadoARD PATIENT MEDICARE (WNR) MEDICARE (M) PART A Feb 06, 2003 PART A [id number] ALANNAHRICKYRUDDYSHERYL PATIENT MEDICARE (WNR) MEDICARE (M) PART B Feb 06, 2003 PART B [id number] ZACHRUDDYSHERYL PATIENT MEDICARE PART D (WNR) MEDICARE () PART D Jun 08, 2022 PART D [id number] SHERYL SERRANO PATIENT [employer] MEDICARE SECONDARY (NO B EXC) UPREH S Jun 08, 2009 [id number] SHERYL SERRANO PATIENT [employer] MEDICARE SUPPLEMEN KAREN MEDIC ARE SUPPL EMENT Jun 08, 2009 [id number] SHREYL SERRANO PATIENT Selected Encounter This section includes the information on record at [place] for the Encounter. Date/Time Encounter Type Encounter Description Reason Provider Source May 04, 2023 03:07 PM TARGETED CASE MANAGEMENT ADMIN PAT ACTIVTIES (MASNONCT) KELLEY PERAZA IHMarika Encounter Template Text not used by [place] Plan of Treatment: Future Appointments (+ 6 months) and Future Tests (+/- 45 days) The Plan of Treatment section includes future care activities for the patient from all [place] treatmentfacilities. This section includes future appointments and future orders which are active, pending or scheduled. Future Appointments This section includes appointments that were scheduled to occur 6 months from the date of the Encounter, up to a maximum of 20 appointments. The data comes from all [place] treatment facilities. Appointment Date/Time Appointment Type Appointme nt Facility Name Jul 23, 2023 01:00 PM AMBULATORY - MED[facility]INE [facility] October 15, 2023 02:30 PM AMBULATORY - SURGERY [facility] Social History: Smoking Status (Most [...] place. Date/Time Current Smoking Status Comment Facil kieran Dec 18, 2022 01:00 PM VA-TOBACCO FORMER USER [facility] Tobacco Use History This section includes a history of the smoking, or tobacco-related health factors, that were collected on or before the date of the Encounter. The data comes from the [place] facility where the Encounter took place. Date/Time Smoking Status/Tobacco Use Comment F ludwig Dec 18, 2022 01:00 PM VA-TOBACCO QUIT [address] [facility] November 05, 2021 10:00 AM VA-TOBACCO FORMER USER [facility] November 05, 2021 10:00 AM VA-TOBACCO QUIT [address] [facility] Dec 10, 2018 12:57 PM VA-TOBACCO FORMER USER [facility] Dec 10, 2018 12:57 PM VA-TOBACCO QUIT [address] [facility] Feb 25, 2018 12:23 PM VA-TOBACCO FORMER USER [facility] Feb 25, 2018 12:23 PM VA-TOBACCO QUIT [address] [facility] Apr 10, 2015 02:55 PM FORMER TOBACCO USER 7Y OR GREATE R [facility] Apr 27, 2014 10:17 AM FORMER TOBACCO USER 7Y OR GRE[address] R [facility] Jun 18, 2006 07:23 AM FORMER TOBACCO USER 7Y OR GRE[address] R [facility] Advance Directives: All historical and current [...] May 23, 2003 ADVANCE DIRECTIVE KINGS ANDREW [facility] Encounter Notes: All associated encounter notes This section contains the clinical notes associated to the Encounter. Date/Time Encounter Note(s) Provider Source May 04, 2023 03:07 PM PARTS TECHNICIAN REFER RAL NOTE: LOCAL TITLE: TRAVELING COORDINATOR NOTE STANDARD TITLE: PARTS TECHNICIAN REFERRAL NOTE DATE OF NOTE: MAY 04, 2023@15:07 ENTRY DATE: MAY 04, 2023@15:07:49 AUTHOR: KELLEY PERAZA EXP COSIGNER: URGENCY: STATUS: COMPLETED Spouse left voice mail requesting a Traveling Consult be placed for an alternate [facility] for Urology. Please review request w/ spouse & place T.V. cons, if deemed appropriate. Thank you. /katey/ CELESTINE BARRERA TRAVELING COORDINATOR Signed: 05/04/2023 15:08 Receipt Acknowledged By: 05/05/2023 14:00 /katey/ JAMISON HERNANDEZ, FRANCIA REGISTERED NURSE KELLEY PERAZA [facility]
--- OUTSIDE RECORDS SUMMARY | 2023-10-05 22:10 | XMS_ITS | Encounter Summary ---
Author Name [facility] Organization [facility] Address [address], [place] [address] Support Name Relationship Address Phone SUZANNE SERRANO [...] A Feb 06, 2003 RR PART A [id number] MIKMOLLYRUDDY GranadoARD PATIENT MEDICARE (WNR) MEDICARE (M) RR PART B Feb 06, 2003 RR PART B [id number] [phone] MIKMOLLYRUDDY GranadoARD PATIENT MEDICARE (WNR) MEDICARE (M) PART A Feb 06, 2003 PART A [id number] ALANNAHRICKYRUDDYSHERYL PATIENT MEDICARE (WNR) MEDICARE (M) PART B Feb 06, 2003 PART B [id number] ZACHRUDDYSHERYL PATIENT MEDICARE PART D (WNR) MEDICARE () PART D Jun 08, 2022 PART D [id number] SHERYL SERRANO PATIENT [employer] MEDICARE SECONDARY (NO B EXC) UPREH S Jun 08, 2009 [id number] SHERYL SERRANO PATIENT [employer] MEDICARE SUPPLEMEN KAREN MEDIC ARE SUPPL EMENT Jun 08, 2009 [id number] SHERYL SERRANO PATIENT Selected Encounter This section includes the information on record at [place] for the Encounter. Date/Time Encounter Type Encounter Description Reason Provider Source May 05, 2023 02:45 PM TARGETED CASE MANAGEMENT ADMIN PAT ACTIVTIES (MASNONCT) KELLEY PERAAZ IHMarika Encounter Template Text not used by [place] Plan of Treatment: Future Appointments (+ 6 months) and Future Tests (+/- 45 days) The Plan of Treatment section includes future care activities for the patient from all [place] treatmentfacilities. This section includes future appointments and future orders which are active, pending or scheduled. Future Appointments This section includes appointments that were scheduled to occur 6 months from the date of the Encounter, up to a maximum of 20 appointments. The data comes from all [place] treatment facilities. Appointment Date/Time Appointment Type Appointme nt Facility Name Jul 23, 2023 01:00 PM [facility] October 15, 2023 02:30 PM AMB[facility]ORY - SURGERY [facility] Social History: Smoking Status (Most current) and Tobacco Use (All prior to encounter date) This section includes the most current, and the historical, smoking and tobacco- related health factors from the [place] facility where the Encounter took place. Current Smoking Status This section includes the most current smoking, or tobacco-related health factor, from the [place] facility where the Encounter took place. Date/Time Current Smoking Status Comment Facil kieran Dec 18, 2022 01:00 PM VA-TOBACCO FORMER USER [facility] Tobacco Use History This section includes a history of the smoking, or tobacco-related health factors, that were collected on or before the date of the Encounter. The data comes from the [place] facility where the Encounter took place. Date/Time Smoking Status/Tobacco Use Comment F ludwig Dec 18, 2022 01:00 PM VA-TOBACCO QUIT 15 YRS OR MORE [facility] November 05, 2021 10:00 AM VA-TOBACCO FORMER USER [facility] November 05, 2021 10:00 AM VA-TOBACCO QUIT 15 YRS OR MORE [facility] Dec 10, 2018 12:57 PM VA-TOBACCO FORMER USER [facility] Dec 10, 2018 12:57 PM VA-TOBACCO QUIT 15 YRS OR MORE [facility] Feb 25, 2018 12:23 PM VA-TOBACCO FORMER USER [facility] Feb 25, 2018 12:23 PM VA-TOBACCO QUIT 15 YRS OR MORE [facility] Apr 10, 2015 02:55 PM FORMER TOBACCO USER 7Y OR GREATE R [facility] Apr 27, 2014 10:17 AM FORMER TOBACCO USER 7Y OR GREATE R [facility] Jun 18, 2006 07:23 AM FORMER TOBACCO USER 7Y OR GREATE R [facility] Advance Directives: All historical and current Section Date Range: From patient's date of to the date document was created. This section includes ALL of a patient's completed or amended [place] Advance and Rescinded Directives. The entries below indicate that a directive exists for the patient, but an actual copy is not included with this document. The data comes from all [place] facilities. Date Advance Directives Provider Source May 23, 2003 ADVANCE DIRECTIVE KINGS ANDREW [facility] Encounter Notes: All associated encounter notes This section contains the clinical notes associated to the Encounter. Date/Time Encounter Note(s) Provider Source May 05, 2023 02:46 PM RESEARCH AND DEVELOPMENT TESTER REFER RAL NOTE: LOCAL TITLE: TRAVELING COORDINATOR NOTE STANDARD TITLE: RESEARCH AND DEVELOPMENT TESTER REFERRAL NOTE DATE OF NOTE: MAY 05, 2023@14:46 ENTRY DATE: MAY 05, 2023@14:46:16 AUTHOR: KELLEY PERAZA EXP COSIGNER: URGENCY: STATUS: COMPLETED Traveling [place] consult activity for: incoming/outgoing consult care coordination, communication &/or chart review. /katey/ CELESTINE BARRERA TRAVELING COORDINATOR Signed: 05/05/2023 14:46 KELLEY PERAZA [facility]
--- OUTSIDE RECORDS SUMMARY | 2023-10-05 22:10 | XMS_ITS ---
Author Name Department of [facility] Organization Department of [facility] Address [address], [place] [address] Support Name Relationship Address Phone SUZANNE SERRANO [...] A Feb 06, 2003 RR PART A [id number] MIKMOLLYRUDDY GranadoARD PATIENT MEDICARE (WNR) MEDICARE (M) RR PART B Feb 06, 2003 RR PART B [id number] MIKMOLLYRUDDY GranadoARD PATIENT MEDICARE (WNR) MEDICARE (M) PART A Feb 06, 2003 PART A [id number] ALANNAHRICKYRUDDYSHERYL PATIENT MEDICARE (WNR) MEDICARE (M) PART B Feb 06, 2003 PART B [id number] ZACHRUDDYSHERYL PATIENT MEDICARE PART D (WNR) MEDICARE (M) PART D Jun 08, 2022 PART D [id number] SHERYL SERRANO PATIENT [employer] MEDICARE SECONDARY (NO B EXC) UPREH S Jun 08, 2009 [id number] SHERYL SERRANO PATIENT [employer] MEDICARE SUPPLEMEN KAR[employer] MEDIC ARE SUPPL EMENT Jun 08, 2009 [id number] SHERYL SERRANO PATIENT Selected Encounter This section includes the information on record at [place] for the Encounter. Date/Time Encounter Type Encounter Description Reason Provider Source May 13, 2023 12:23 PM CASE MANAGEMENT ADMIN PAT ACTIVTIES (MASNONCT) LARRY HODGE E Encounter Template Text not used by [place] Plan of Treatment: Future Appointments (+ 6 months) and Future Tests (+/- 45 days) The Plan of Treatment section includes future care activities for the patient from all [place] treatmentfacilities. This section includes future appointments and future orders which are active, pending or scheduled. Future Appointments This section includes appointments that were scheduled to occur 6 months from the date of the Encounter, up to a maximum of 20 appointments. The data comes from all [place] treatment facilities. Appointment Date/Time Appointment Type Appointme nt Facility Name Jul 23, 2023 01:00 PM [facility]BULATORY - MEDICINE [facility] October 15, 2023 02:30 PM AMBULATORY - SURGERY [facility] Advance Directives: All historical and current Section Date Range: From patient's date of to the date document was created. This section includes ALL of a patient's completed or amended [place] Advance and Rescinded Directives. The entries below indicate that a directive exists for the patient, but an actual copy is not included with this document. The data comes from all [place] facilities. Date Advance Directives Provider Source May 23, 2003 ADVANCE DIRECTIVE KINGS ANDREW [facility] Encounter Notes: All associated encounter notes This section contains the clinical notes associated to the Encounter. Date/Time Encounter Note(s) Provider Source May 13, 2023 12:39 PM NURSING OUTPATIENT NOTE: LOCAL TITLE: TRAVELING CARE COORDINATION NOTE STANDARD TITLE: NURSING OUTPATIENT NOTE DATE OF NOTE: MAY 13, 2023@12:39 ENTRY DATE: MAY 13, 2023@12:39:10 AUTHOR: LARRY HODGE EXP COSIGNER: URGENCY: STATUS: COMPLETED Communication received via: Traveling [employer] consult From/Location: [facility] Coordinator: KELLEY PERAZA Remote Facility: [facility] Ordering Provider: RODRÍGUEZ MATHEWS [facility] Coordination of care initiated. UROLOGY MCA OUTPT consult submitted for local provider for review and approval. If Community Care is required for service, please note community care process may take 30 days and appointment based on availability in the community. [employer] will be contacted by [facility] or community care staff for scheduling of needed appointments once approved. /es/ Larry Hodge RN Registered Nurse Signed: 05/13/2023 12:43 LARRY HODGE [facility]
--- OUTSIDE RECORDS SUMMARY | 2023-10-05 22:10 | XMS_ITS | Encounter Summary ---
Author Name [facility] Organization [facility] Address [address], [place] [address] Support Name Relationship Address Phone SUZANNE SERRANO [...] A Feb 06, 2003 RR PART A [id number] JANETTERUDDY GranadoARD PATIENT MEDICARE (WNR) MEDICARE (M) RR PART B Feb 06, 2003 RR PART B [id number] [phone] JANETTERUDDY GranadoARD PATIENT MEDICARE (WNR) MEDICARE (M) PART B Feb 06, 2003 PART B [id number] ZACHRUDDYSHERYL PATIENT MEDICARE (WNR) MEDICARE (M) PART A Feb 06, 2003 PART A [id number] ZACHRUDDYSHERYL PATIENT MEDICARE PART D (WNR) MEDICARE () PART D Jun 08, 2022 PART D [id number] SHERYL SERRANO PATIENT [employer] MEDICARE SECONDARY (NO B EXC) UPREH S Jun 08, 2009 [id number] SHERYL SERRANO PATIENT [employer] MEDICARE SUPPLEMEN KAREN MEDIC ARE SUPPL EMENT Jun 08, 2009 [id number] SHERYL SERRANO PATIENT Selected Encounter This section includes the information on record at [place] for the Encounter. Date/Time Encounter Type Encounter Description Reason Provider Source May 13, 2023 09:52 AM TARGETED CASE MANAGEMENT ADMIN PAT ACTIVTIES (MASNONCT) FATEMEH PERAZA IHMarika Encounter Template Text not used by [place] [...] [place] treatment facilities. Appointment Date/Time Appointment Type Appointme nt Facility Name Jul 23, 2023 01:00 PM [facility] October 15, 2023 02:30 PM AMB[facility]ORY - SURGERY [facility] Social History: Smoking Status (Most current) and Tobacco Use (All prior to encounter date) This section includes the most current, and the historical, smoking and tobacco- related health factors from the [place] facility where the Encounter took place. Current Smoking Status This section includes the most current smoking, or tobacco-related health factor, from the [place] facility where the Encounter took place. Date/Time Current Smoking Status Comment Facil kieran Dec 18, 2022 01:00 PM VA-TOBACCO FORMER USER [facility] Tobacco Use History This section includes a history of the smoking, or tobacco-related health factors, that were collected on or before the date of the Encounter. The data comes from the [place] facility where the Encounter took place. Date/Time Smoking Status/Tobacco Use Comment F ludwig Dec 18, 2022 01:00 PM VA-TOBACCO QUIT 15 YRS OR MORE [facility] November 05, 2021 10:00 AM VA-TOBACCO FORMER USER [facility] November 05, 2021 10:00 AM VA-TOBACCO QUIT 15 YRS OR MORE [facility] Dec 10, 2018 12:57 PM VA-TOBACCO FORMER USER [facility] Dec 10, 2018 12:57 PM VA-TOBACCO QUIT 15 YRS OR MORE [facility] Feb 25, 2018 12:23 PM VA-TOBACCO FORMER USER [facility] Feb 25, 2018 12:23 PM VA-TOBACCO QUIT 15 YRS OR MORE [facility] Apr 10, 2015 02:55 PM FORMER TOBACCO USER 7Y OR GREATE R [facility] Apr 27, 2014 10:17 AM FORMER TOBACCO USER 7Y OR GREATE R [facility] Jun 18, 2006 07:23 AM FORMER TOBACCO USER 7Y OR GREATE R [facility] Advance Directives: All historical and current Section Date Range: From patient's date of to the date document was created. This section includes ALL of a patient's completed or amended [place] Advance and Rescinded Directives. The entries below indicate that a directive exists for the patient, but an actual copy is not included with this document. The data comes from all [place] facilities. Date Advance Directives Provider Source May 23, 2003 ADVANCE DIRECTIVE KINGS ANDREW [facility] Encounter Notes: All associated encounter notes This section contains the clinical notes associated to the Encounter. Date/Time Encounter Note(s) Provider Source May 13, 2023 10:19 AM ADDENDUM: LOCAL TITLE: Addendum STANDARD TITLE: ADDENDUM DATE OF NOTE: MAY 13, 2023@10:19:48 ENTRY DATE: MAY 13, 2023@10:19:49 AUTHOR: JAMISON HERNANDEZ EXP COSIGNER: URGENCY: STATUS: COMPLETED New T.V consult placed Alerting RN T.V coordinator Fatemeh Vera for review of consult. Please advise typewriter mechanic if corrections are needed. Thank you /katey/ JAMISON HERNANDEZ RN REGISTERED NURSE Signed: 05/13/2023 10:28 Receipt Acknowledged By: 05/13/2023 10:33 /katey/ CELESTINE BARRERA TRAVELING COORDINATOR --- Original Document --- 05/13/23 TRAVELING COORDINATOR NOTE: Traveling [place] 05/05/23 Cons was cancelled as it did not specify what the need was. Spouse called back today for an update. Evidently, they need a Uro. Cons. for weekly irrig. w/ Gent. next due 05/27/23. Please review notes & re- submit a TV cons., if deemed appropriate. Thank you. /katey/ CELESTINE BARRERA TRAVELING COORDINATOR Signed: 05/13/2023 09:55 Receipt Acknowledged By: * AWAITING SIGNATURE * URVASHI MATHEWS 05/13/2023 10:08 /katey/ JAMISON HERNANDEZ RN REGISTERED NURSE JAMISON HERNANDEZ [facility] May 13, 2023 09:52 AM HEAD OF OPERATION AND LOGISTICS REFER RAL NOTE: LOCAL TITLE: TRAVELING COORDINATOR NOTE STANDARD TITLE: HEAD OF OPERATION AND LOGISTICS REFERRAL NOTE DATE OF NOTE: MAY 13, 2023@09:52 ENTRY DATE: MAY 13, 2023@09:52:55 AUTHOR: FATEMEH PERAZA EXP COSIGNER: URGENCY: STATUS: COMPLETED TRAVELING COORDINATOR NOTE Has ADDENDA Traveling 05/05/23 Cons was cancelled as it did not specify what the need was. Spouse called back today for an update. Evidently, they need a Uro. Cons. for weekly irrig. w/ Gent. next due 05/27/23. Please review notes & re- submit a TV cons., if deemed appropriate. Thank you. /CELESTINE Abdi TRAVELING COORDINATOR Signed: 05/13/2023 09:55 Receipt Acknowledged By: 05/14/2023 09:58 /katey/ Urvashi Mathews MD Physician 05/13/2023 10:08 /katey/ JAMISON HERNANDEZ RN REGISTERED NURSE 05/13/2023 ADDENDUM STATUS: COMPLETED New T.V consult placed Alerting RN T.V coordinator Fatemeh Vera for review of consult. Please advise typewriter mechanic if corrections are needed. Thank you /daljit HERNANDEZ RN REGISTERED NURSE Signed: 05/13/2023 10:28 Receipt Acknowledged By: 05/13/2023 10:33 /katey/ FATEMEH L BENFANTE, CCRN TRAVELING COORDINATOR FATEMEH PERAZA [facility]
--- OUTSIDE RECORDS SUMMARY | 2023-10-05 22:10 | XMS_ITS | Encounter Summary ---
Author Name [facility] Organization [facility] Address [address], [place] [address] Support Name Relationship Address Phone SUZANNE SERRANO Next of Kin [address] [place] [id number] SUZANNE SERRANO Emergency Contact [address] [...] A Feb 06, 2003 RR PART A [id number] [phone] JANETTERUDDY GranadoARD PATIENT MEDICARE (WNR) MEDICARE (M) RR PART B Feb 06, 2003 RR PART B [id number] [phone] JANETTERUDDY GranadoARD PATIENT MEDICARE (WNR) MEDICARE (M) PART B Feb 06, 2003 PART B [id number] ZACHRUDDYSHERYL PATIENT MEDICARE (WNR) MEDICARE (M) PART A Feb 06, 2003 PART A [id number] ZACHRUDDYSHERYL PATIENT MEDICARE PART D (WNR) MEDICARE () PART D Jun 08, 2022 PART D [id number] SHERYL SERRANO PATIENT [employer] MEDICARE SECONDARY (NO B EXC) UPREH S Jun 08, 2009 [id number] SHERYL SERRANO PATIENT [employer] MEDICARE SUPPLEMEN KAREN MEDIC ARE SUPPL EMENT Jun 08, 2009 [id number] SHERYL SERRANO PATIENT Selected Encounter This section includes the information on record at [place] for the Encounter. Date/Time Encounter Type Encounter Description Reason Provider Source May 19, 2023 01:41 PM CASE MANAGEMENT ADMIN PAT ACTIVTIES (MASNONCT) KELLEY PERAZA Marika Encounter Template Text not used by [place] Plan of Treatment: Future Appointments (+ 6 months) and Future Tests (+/- 45 days) The Plan of Treatment section includes future care activities for the patient [facility] [place] [facility] This section includes future appointments and future orders which are active, pending or scheduled. Future Appointments This section includes appointments that were scheduled to occur 6 months from the date of the Encounter, up to a maximum of 20 appointments. The data comes from all [place] treatment facilities. Appointment Date/Time Appointment Type Appointme nt Facility Name Jul 23, 2023 01:00 PM AMBULATORY - MEDICINE [facility] October 15, 2023 02:30 PM AMBULATORY - SURGERY [facility] Social History: Smoking Status (Most current) and Tobacco Use (All prior to encounter date) This section includes the most current, and the historical, smoking and tobacco- related health factors from the [place] facility where the Encounter took place. Current Smoking Status This section includes the most current smoking, or tobacco-related health factor, from the [place] facility where the Encounter took place. Date/Time Current Smoking Status Comment Facil kieran Dec 18, 2022 01:00 PM VA-TOBACCO FORMER USER [facility] Tobacco Use History This section includes a history of the smoking, or tobacco-related health factors, that were collected on or before the date of the Encounter. The data comes from the [place] facility where the Encounter took place. Date/Time Smoking Status/Tobacco Use Comment F ludwig Dec 18, 2022 01:00 PM VA-TOBACCO QUIT 15 YRS OR MORE [facility] November 05, 2021 10:00 AM VA-TOBACCO FORMER USER [facility] November 05, 2021 10:00 AM VA-TOBACCO QUIT 15 YRS OR MORE [facility] Dec 10, 2018 12:57 PM VA-TOBACCO FORMER USER [facility] Dec 10, 2018 12:57 PM VA-TOBACCO QUIT 15 YRS OR MORE [facility] Feb 25, 2018 12:23 PM VA-TOBACCO FORMER USER [facility] Feb 25, 2018 12:23 PM VA-TOBACCO QUIT 15 YRS OR MORE [facility] Apr 10, 2015 02:55 PM FORMER TOBACCO USER 7Y OR GREATE R [facility] Apr 27, 2014 10:17 AM FORMER TOBACCO USER 7Y OR GREATE R [facility] Jun 18, 2006 07:23 AM FORMER TOBACCO USER 7Y OR GREATE R [facility] Advance Directives: All historical and [...] May 23, 2003 ADVANCE DIRECTIVE [facility] Encounter Notes: All associated encounter notes This section contains the clinical notes associated to the Encounter. Date/Time Encounter Note(s) Provider Source May 19, 2023 01:41 PM COBBLER MCKAY REFER RAL NOTE: LOCAL TITLE: TRAVELING COORDINATOR NOTE STANDARD TITLE: COBBLER MCKAY REFERRAL NOTE DATE OF NOTE: MAY 19, 2023@13:41 ENTRY DATE: MAY 19, 2023@13:41:55 AUTHOR: KELLEY PERAZA EXP COSIGNER: URGENCY: STATUS: COMPLETED VM from spouse requesting an update to uro. appt. request; vet is due for irrig. 05/27/23. Teams message sent to YESENIA SaskiaMau Sultana who had an unsucessful scheduling attempt 05/15/23. /katey/ CELESTINE BARRERA TRAVELING COORDINATOR Signed: 05/19/2023 13:43 KELLEY PERAZA [facility]
--- OUTSIDE RECORDS SUMMARY | 2023-10-05 22:10 | XMS_ITS | Encounter Summary ---
Author Name Department of [facility] Organization Department of [facility] Address [address], [place] [address] Support Name Relationship Address Phone SUZANNE SERRANO [...] A Feb 06, 2003 RR PART A [id number] SHERYL SERRANO PATIENT MEDICARE (WNR) MEDICARE () RR PART B Feb 06, 2003 RR PART B [id number] SHERYL SERRANO PATIENT MEDICARE (WNR) MEDICARE () PART A Feb 06, 2003 PART A [id number] SHEYRL SERRANO PATIENT MEDICARE (WNR) MEDICARE (M) PART B Feb 06, 2003 PART B [id number] SHERYL SERRANO PATIENT MEDICARE PART D (WN) MEDICARE () PART D Jun 08, 2022 PART D [id number] SHERYL SERRANO PATIENT [employer] MEDICARE SECONDARY (NO B EXC) UPREH S Jun 08, 2009 [id number] SHERYL SERRANO PATIENT [employer] MEDICARE SUPPLEMEN KAREN MEDIC ARE SUPPL EMENT Jun 08, 2009 [id number] SHERYL SERRANO PATIENT Selected Encounter This section includes the information on record at [place] for the Encounter. Date/Time Encounter Type Encounter Description Reason Pro vider Source May 13, 2023 01:22 PM Outpatient Encounter PRIMARY CARE/MEDICINE IHE Encounter Template Text not used by [...] 15, 2023 02:30 PM AMBULATORY - SURGERY [facility] Social History: Smoking Status (Most current) and Tobacco Use (All prior to encounter date) This section includes the most current, and the historical, smoking and tobacco- related health factors from the [place] facility where the Encounter took place. Current Smoking Status This section includes the most current smoking, or tobacco-related health factor, from the [place] facility where the Encounter took place. Date/Time Current Smoking Status Comment Billie ity Jul 28, 2019 02:23 PM [place]-TOBACCO QUIT 15 YRS OR [facility] Tobacco Use History This section includes a history of the smoking, or tobacco-related health factors, that were collected on or before the date of the Encounter. The data comes from the [place] facility where the Encounter took place. Date/Time Smoking Status/Tobacco Use Comment F acility Jul 28, 2019 02:23 PM [place]-TOBACCO QUIT 15 YRS OR MORE [facility] Advance Directives: All historical and current Section [...] May 23, 2003 ADVANCE DIRECTIVE [facility] ANDREW [facility] Encounter Notes: All associated encounter notes This section contains the clinical notes associated to the Encounter. Date/Time Encounter Note(s) Provider Source May 13, 2023 01:23 PM OUTPATIENT INTERDI SCIPLINARY NOTE: LOCAL TITLE: CHART REVIEW NOTE STANDARD TITLE: OUTPATIENT INTERDISCIPLINARY NOTE DATE OF NOTE: MAY 13, 2023@13:23 ENTRY DATE: MAY 13, 2023@13:23:14 AUTHOR: AAKASH STAPLES EXP COSIGNER: URGENCY: STATUS: COMPLETED SHERYL SERRANO, [id number] Reason for chart review: Traveling Coordinator requesting for consult at request of [facility] PCP for urology consult. I have reviewed chart and signed off on consult. [facility] to provide data security consultant with any pertinent medications, labs and imaging. Please see remote data for any further information on this patient. /katey/ AAKASH STAPLES DNP, BANQUET STEWARDESS, DOMESTIC FREIGHT FORWARDER Signed: 05/13/2023 13:24 AAKASH STAPLES [facility]
--- OUTSIDE RECORDS SUMMARY | 2023-10-05 22:11 | XMS_ITS | Encounter Summary ---
Author Name [facility] Organization [facility] Address [address], [place] [address] Support Name Relationship Address Phone SUZANNE SERRANO [...] A Feb 06, 2003 RR PART A [id number] [phone] JANETTERUDDY GranadoARD PATIENT MEDICARE (WNR) MEDICARE (M) RR PART B Feb 06, 2003 RR PART B [id number] JANETTERUDDY GrnaadoARD PATIENT MEDICARE (WNR) MEDICARE (M) PART B Feb 06, 2003 PART B [id number] ZACHRUDDYSHERYL PATIENT MEDICARE (WNR) MEDICARE (M) PART A Feb 06, 2003 PART A [id number] ZACHRUDDYSHERYL PATIENT MEDICARE PART D (WNR) MEDICARE () PART D Jun 08, 2022 PART D [id number] SHERYL SERRANO PATIENT [employer] MEDICARE SECONDARY (NO B EXC) UPREH S Jun 08, 2009 [id number] SHERYL SERRANO PATIENT [employer] MEDICARE SUPPLEMEN KAR[employer] MEDIC ARE SUPPL EMENT Jun 08, 2009 [id number] SHERYL SERRANO PATIENT Selected Encounter This section includes the information on record at [place] for the Encounter. Date/Time Encounter Type Encounter Description Reason Provider Source May 27, 2023 06:05 AM Outpatient Encounter ADMIN PAT ACTIVTIES (MASNONCT) KELLEY PERAZA Marika Encounter Template Text not used by [place] Plan of Treatment: Future Appointments (+ 6 months) and Future Tests (+/- 45 days) The Plan of Treatment section includes future care activities for the patient [facility] [place] [facility]. This section includes future appointments and future orders which are active, pending or scheduled. Future Appointments This section includes appointments that were scheduled to occur 6 months from the date of the Encounter, up to a maximum of 20 appointments. The data comes from all [place] treatment facilities. Appointment Date/Time Appointment Type Appointme nt Facility Name Jul 23, 2023 01:00 PM [facility] October 15, 2023 02:30 PM AMBULATORY - SURGERY [facility] Social History: Smoking Status (Most current) and Tobacco Use (All prior to encounter date) This section includes the most current, and the historical, smoking and tobacco- related health factors from the [place] facility where the Encounter took place. Current Smoking Status This section includes the most current smoking, or tobacco-related health factor, from the [place] facility where the Encounter took place. Date/Time Current Smoking Status Comment Facil ity Dec 18, 2022 01:00 PM VA-TOBACCO QUIT 15 YRS OR MORE [facility] Tobacco Use History This section includes a history of the smoking, or tobacco-related health factors, that were collected on or before the date of the Encounter. The data comes from the [place] facility where the Encounter took place. Date/Time Smoking Status/Tobacco Use Comment F acsilva Dec 18, 2022 01:00 PM VA-TOBACCO QUIT 15 YRS OR MORE [facility] November 05, 2021 10:00 AM VA-TOBACCO FORMER USER [facility] November 05, 2021 10:00 AM VA-TOBACCO QUIT 15 YRS OR MORE [facility] Dec 10, 2018 12:57 PM VA-TOBACCO FORMER USER [facility] Dec 10, 2018 12:57 PM VA-TOBACCO QUIT 15 YRS OR MORE [facility] Feb 25, 2018 12:23 PM VA-TOBACCO FORMER USER [facility] Feb 25, 2018 12:23 PM VA-TOBACCO QUIT 15 YRS OR MORE [facility] Apr 10, 2015 02:55 PM FORMER TOBACCO USER 7Y OR GREATE R [facility] Apr 27, 2014 10:17 AM FORMER TOBACCO USER 7Y OR GREATE R [facility] Jun 18, 2006 07:23 AM FORMER TOBACCO USER 7Y OR GREATE R [facility] Advance Directives: All historical and current Section Date Range: From patient's date of to the date document was created. This section includes ALL of a patient's completed or amended [place] Advance and Rescinded Directives. The entries below indicate that a directive exists for the patient, but an actual copy is not included with this document. The data comes from all [place] facilities. Date Advance Directives Provider Source May 23, 2003 ADVANCE DIRECTIVE [facility] Encounter Notes: All associated encounter notes This section contains the clinical notes associated to the Encounter. Date/Time Encounter Note(s) Provider Source May 27, 2023 06:05 AM GRAIN CLEANER AND TRANSFER OPERATOR REFER RAL NOTE: LOCAL TITLE: TRAVELING COORDINATOR NOTE STANDARD TITLE: GRAIN CLEANER AND TRANSFER OPERATOR REFERRAL NOTE DATE OF NOTE: MAY 27, 2023@06:05 ENTRY DATE: MAY 27, 2023@06:05:40 AUTHOR: KELLEY PERAZA EXP COSIGNER: URGENCY: STATUS: COMPLETED Traveling Vet consult activity for: incoming/outgoing consult care coordination, communication &/or chart review. /katey/ CELESTINE BARRERA TRAVELING COORDINATOR Signed: 05/27/2023 06:05 KELLEY PERAZA [facility]
--- OUTSIDE RECORDS SUMMARY | 2023-10-05 22:11 | XMS_ITS | Clinical Summary ---
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 Lisinopril GI Upset 07/06/2006 Metoclopramide Other - Describe In Comment Field 11/07/2015 Gynecomastia Omeprazole Diarrhea 09/04/2015 Per home med list. Tolerates protonix. Medications Medication Sig Dispensed Refills Start Date End Date Status ALBUTEROL SULFATE HFA 90 MCG/ACTUATION AEROSOL INHALER Inhale 2 Puffs by mouth every 4 hours if needed. 0 8 Active nitroglycerin (NITROSTAT) 0.[address] 1 tablet under the tongue every 5 minutes if needed for Chest Pain. 1 Bottle 6 1 Active pravastatin (PRAVACHOL) 80 mg tabletIndications:Type II or unspecified type diabetes mellitus with renal manifestations, not stated as uncontrolled(250.40),Pur e hypercholesterolemia Take 1 tablet by mouth at bedtime. 90 tablet 3 3 Active tiotropium (SPIRIVA) 18 mcg inhalation capsuleIndications:Other emphysema (HC) Inhale 18 mcg by mouth once daily. 90 capsule 3 6 Active coenzyme q10 (CO Q-10) 100 mg cap Take 100 mg by mouth once daily. Active loratadine (CLARITIN) 10 mg tablet Take 10 mg by mouth once daily. Active dprho-tr-5-vti-tcm-tfbez ho-ast (MEGARED OMEGA-3 KRILL OIL) 1,000-230-60 mg cap Take 1 capsule by mouth once daily. Active montelukast (SINGULAIR) 10 mg tabletIndications:Other allergic rhinitis Take 1 tablet by mouth at bedtime. 90 tablet 3 7 Active cholecalciferol (VITAMIN D-3) 2,000 unit capsule Take 2,000 Units by mouth once daily. Active B Complex-Vitamin C-Folic Acid (DIALYVITE) 100-1 mg tab Take 1 Tablet by mouth once daily with evening meal. 0 9 Active Dextromethorphan-guaFENe sin (ROBITUSSIN COUGH-CHEST LEIDA DM) 5-100 mg/5 mL liqd Take 5 mL by mouth every 8 hours if needed (cough). 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 Hold x 5 days. Resume taking on 11/23/2019. 0 0 Active vitamin e 400 unit capsule Take 1 capsule by mouth once daily. 0 0 Active CPAP Use at bedtime CPAP machine for home use at pressure auto set Settings can be updated with home settings if known. 1 Each 1 Active insulin glargine, U-100, (Lantus Solostar U-100 Insulin) 100 unit/mL (3 mL) penIndications:Type 2 diabetes mellitus with other specified complication, with long-term current use of insulin (HC) Inject 18 units subcutaneous before bedtime. Product desired: BASAGLAR 15 mL 1 3 Active hydrocortisone 2.5% creamIndications:Hemorrh oids, external Apply topically to affected area(s) 2 times daily if needed for Itching (Pain). 30 g 3 Active insulin aspart, U-100, (NovoLOG FlexPen U-100 Insulin) 100 unit/mL (3 mL) pen Inject 5 units subcutaneous three times daily before meals. Active fluticasone propion-salmeteroL (Wixela Inhub) 100-50 mcg/dose diskus inhaler Inhale 1 Puff by mouth two times daily. Active levothyroxine (Synthroid) 175 mcg tablet Take 175 mcg by mouth before breakfast. Active sennosides (Senna) 8.6 mg tablet Take 8.6-17.6 mg by mouth two times daily. 2 tablets twice daily except on evenings before AM dialysis sessions will get 1 tablet instead Active gentamicin 80 mg/L NaCl irrigation bottle AHCP mixture Irrigate 50 mL to affected area every 2 weeks. Refrigerate. Expires: Active cycloSPORINE (Restasis) 0.05 % ophthalmic emulsion Place 1 Drop into both eyes two times daily. Active fluticasone (50 mcg per actuation) nasal solution (FLONASE) Inhale 1 Fosters into affected nostril(s) once daily if needed for Rhinitis. Active milk of magnesia (MOM) 400 mg/5 mL suspension Take 15-30 mL by mouth once daily if needed for Constipation. Active acetaminophen SR (Tylenol Arthritis Pain) 650 mg Extended-Release tablet Take 650 mg by mouth every 8 hours if needed. Max acetaminophen dose: 4000mg in 24 hrs. Active methyl salicylate-menthol (ARY BECKMAN; MENTHOLATUM DEEP HEAT) 15-10 % topical creamIndications:Pain of lower extremity, unspecified laterality Apply topically to affected area(s) 3 times daily if needed (pain). 85 g 3 Active difelikefalin (Korsuva) 50 mcg/mL solnIndications:ESRD (end stage renal disease) on dialysis (HC) Inject intravenous after dialysis. 250 mL 3 Active guaiFENesin 100 mg/5 mL liquidIndications:Chroni c cough Take 5 mL (100 mg) by mouth every 4 hours if needed for Expectoration. 118 mL 6 3 Active Active Problems Problem Noted Date Diagnosed Date Pneumonia of left lower lobe due to infectious o rganism 01/04/2023 Type 2 diabetes mellitus wit hout complication, with long-term current use of insulin 01/04/2023 Coronary artery disease 01/04/2023 S/P CABG (coronary artery bypass graft) 01/05/20 Hypothyroidism (acquired) 01/04/2023 Anemia of chronic disease 01/04/2023 Recurrent UTI 01/04/2023 Acute metabolic encephalopathy 12/29/2022 ESRD (end stage renal disease) on dialysis 12/29 Encephalopathy 12/28/2022 Dependence on renal dialysis 11/04/2022 Hypertensive heart and chron ic kidney disease with heart failure and with stage 5 chronic kidney disease, or end stage renal disease 11/04/2022 Atrioventricular block, complete 11/04/2022 Secondary hyperparathyroidism of renal origin Coagulation defect, unspecified 11/04/2022 Pneumonia due to COVID-19 virus 02/06/2021 Respiratory distress 02/06/2021 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 10/19/2020 CKD (chronic kidney disease) stage 5, GFR less than 15 ml/min 10/29/2018 Severe obesity (BMI 35.0-39.9) with comorbidity 03/17/2017 Calculus of gallbladder without cholecystitis Second degree heart block 08/07/2016 Overview: Mobitz 1 Right upper lobe pneumonia 07/27/2016 Leg erythema 04/11/2016 History of surgical site infection 04/11/2016 Allergic rhinitis 10/31/2015 Fracture of fibula with tibia, left, closed 11/2014 Pulmonary emphysema 04/13/2015 Acquired hypothyroidism 04/13/2015 CHLOE (obstructive sleep apnea) 07/20/2013 Asbestosis(501) 12/26/2010 Overview: Needs annual CXR and PFT's Colon polyps 06/22/2009 Overview: Colonoscopy 03/2010 polyp, poor prep repeat in 3 years Detached retina 10/10/2008 Overview: L eye 2006 Gastroesophageal reflux disease with esophagitis 06/09/2008 Diabetic foot ulcer 05/24/2008 Unspecified essential hypertension 05/24/2008 Charcot foot 03/30/2008 Overview: Bilateral due to his diabetic peripheral Benign neoplasm of colon 10/07/2007 Overview: Colonoscopy 03/2013 normal repeat in 5 years Unspecified constipation 07/13/2006 STATUS POST CABG 07/09/06 07/10/2006 Overview: Coronary artery bypass x4, left internal mammary artery to left anterior descending, saphenous vein to obtuse marginal 1, saphenous vein to obtuse marginal 2, saphenous vein to diagonals. Pure hypercholesterolemia Acute myocardial infarction, unspecified site, episode of care unspecified Overview: Non Q UT 06/14 Atherosclerosis of [place] co ronary artery of [place] heart with angina pectoris Overview: Status post CABG x4; 07/09/06 Personal history of contact with and (suspected) exposure to asbestos Overview: With abnl lung nodules Ischemic cardiomyopathy Chronic airway obstruction, not elsewhere classi fied Anemia of chronic renal failure Resolved Problems Problem Noted Date Diagnosed Date Resolved Date COVID 02/06/2021 02/06/2021 Diabetic retinopathy associa fareed with type 2 diabetes mellitus 02/06/2021 02/06/2021 End stage renal failure on dialysis 02/06/2021 02/06/2021 End-stage renal disease 10/24/2020 09/0 06/2020 Iron deficiency anemia, unspecified 10/19/2020 02/06/2021 Type 2 diabetes mellitus wit h neurological manifestation 11/12/2018 02/06/2021 Diabetes mellitus due to und erlying condition with diabetic nephropathy, with long-term current use of insulin 11/11/2018 11/12/2018 Type 2 diabetes mellitus wit h stage 5 chronic kidney disease 11/11/2018 02/06/2021 Anticoagulation monitoring, INR range 2-3 10/30/2015 04/09/2016 Anticoagulation monitoring, special range [Z79.01] (1.8-2.5) 10/30/2015 12/19/2015 Type 2 diabetes mellitus wit h diabetic nephropathy 04/13/2015 10/31/2015 CKD (chronic kidney disease) stage 4, GFR 15-29 ml/min 04/13/2015 05/19/2019 DM Renal Manif Type II 01/18/201309/03 DM Renal Manif Type II 01/18/201309/03 Sleep apnea 10/08/2010 09/04/2015 DM Renal Manif Type II 06/10/200809/03 Overview: Creatinine 1.4 -1.5 Type II or unspecified type diabetes mellitus with neurological manifestations, not stated as uncontrolled 06/10/2008 04/09/2016 Overview: Dx 1987 Type 2 diabetes mellitus wit h stage 4 chronic kidney disease 06/10/2008 10/29/2018 Overview: L foot ulcer Unspecified hypothyroidism 12/28/2007 0 09/04/2015 Edema 09/20/2007 04/09/2016 Type II or unspecified type diabetes mellitus without mention of complication, not stated as uncontrolled 09/20/2007 Cough 07/16/2006 Hypervolemia 08/07/2016 Immunizations Name Administration Dates Next Due COVID-19 vaccine ([employer] NTech 30mcg/0.3mL) 12YO+ BIVALENT PF, MDV 03/17/2022 COVID-19 vaccine (Pfizer-Bio NTech 30mcg/0.3mL) 12YO+ ALY-SUCROSE PF, MDV 10/10/2021 COVID-19 vaccine ([employer] (Formerly [employer]) NTech 30mcg/0.3mL) PF, MDV 04/04/2021,08/23/2020,08/03/2020 Hep B (Hepatitis B (Adult) Recombinant Adjuvanted) 03/25/2021,01/28/2021,12/31/2020,2020 Influenza Virus, Unspecified 03/10/2022, 03/09/2021,04/22/2019,2013,03/23/2013,04/02/2012,04/04/2011,1 ,02/16/2009,03/08/2007, 006,04/10/2005,03/27/2004,04/08/2003 Influenza, High-dose Inactivated 02/18/2016,09/2014 Influenza, High-dose Quadriv alent Inactivated 03/14/2022,03/08/2021 Influenza, IIV3 (Age >=3 years) 03/20/2008,04/10,05/01/1995 Pneumococcal Poly,23-Valent (Pneumovax) 03/19/1994 Pneumococcal conj 13-Valent (Prevnar 13) 04/11/2015 Pneumococcal, Unspecified 03/23/2013,08/25/2003 TD, UNSPECIFIED 03/24/2008,06/08/2003,06/08/1994 Td (Age >=7 Years) 03/02/1995 Td, Preservative Free (age > = 7 Years) 03/20/2008 Tdap 12/18/2022,06/29/2012 Tuberculin Skin Test, Unspecified 02/25/2021,02/2021 Zoster (Shingrix-RZV, recombinant) 09/18/2020, Zoster (Zostavax-ZVL, live) 06/08/2013, 3 Family History Medical History Relation Name Comments Diabetes Brother 1 Cancer Brother 2 leukemia Other Father Alzheimer's d a t 92 Cancer Mother oral cancer d a t 87 Relation Name Status Comments Brother 1 Brother 2 Father Mother Social History Tobacco Use Types Packs/Day Years Used Date Smoking Tobacco: Former Cigarettes 1 10 0 11/26/1965 - 11/27/1975 Smokeless Tobacco: Never Tobacco Cessation:Counseling Given: Yes Comments:quit in 74 Alcohol Use Standard Drinks/Week Comments Yes 0 (1 standard drink = 0.6 oz pur e alcohol) Glass of wine with a steak PHQ-2 Answer Date Recorded PHQ-2 TOTAL SCORE 0 11/04/2022 Social Connections Answer Date Recorded Frequency of Communication with Friends and Fami ly 0 2023 Financial Resource Strain Answer Date R ecorded Difficulty of Paying Living Expenses 3 2023 Difficulty of Paying Living Expenses Not on file 2023 Food Insecurity Answer Date Recorded Worried About Running Out of Food in the Last Ye ar 1 2023 Transportation Needs Answer Date Record ed Lack of Transportation (Medical) 1 2023 Housing Stability Answer Date Recorded Unable to Pay for Housing in the Last Year 1 2023 Sex and Gender Information Value Date Recorded Sex Assigned at Not on file Gender Identity Not on file Sexual Orientation Not on file Obstetrics History Last Filed Vital Signs Vital Sign Reading Time Taken Comments Blood Pressure 120/58 04/15/2023 4:13 PM 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 SPECIALIST Pulse 70 04/15/2023 4:13 PM AUTOMATION CONTROLS SPECIALIST Temperature 36.9 ??C (98.4 ??F) 2023 10:49 AM C DT Respiratory Rate 16 03/03/2023 12:37 PM CDT Oxygen Saturation 97% 03/03/2023 12:37 PM CDT Inhaled Oxygen Concentration - - Weight 98.4 kg (217 lb) 03/03/2023 12:37 PM CDT Height 182.9 cm (6') 03/03/2023 12:37 PM CDT Body Mass Index 29.43 03/03/2023 12:37 PM CDT Plan of Treatment Upcoming Encounters Date Type Department Care Team (Late st Contact Info) Description 10/13/2023 1:30 PM CDT Office Visit [facility] [address] [place] [address] Patricia Nichols MD [address] [place] [address] 10/14/2023 3:25 PM CDT Office Visit [facility] [address] [place] [address] Anna Marie Oglesby, DO [address] [place] [address] 11/19/2023 Cardiac Device Check [facility] [phone] 01/19/2024 1:00 PM CDT Cardiac Device Check [facility] [address] [place] [phone] Health Maintenance Due Date Last Done Comments Pneumococcal series for age 65+ (3 of 3 - PPSV23 or PCV20) 06/06/2015 04/11/2015, 03/23/2013, 08/25/2003, Additional history exists COVID-19 vaccine series ( season) 2023 03/17/2022, 10/10/2021, 04/04/2021, Additional history exists Medicare Wellness for age 65+ 11/05/2023 11/04/2022, 05/19/2019 Depression screening for age 12+ 11/06/2023 11/05/2022, 11/05/2022, 11/04/2022, Additional history exists Influenza for age 65+ 02/07/2024 03/14/2022 , 03/10/2022, 03/09/2021, Additional history exists BMI (ht and wt on same day) for age 18+ 03/03/2024 03/03/2023, 02/27/2022, 03/22/2020, Additional history exists Tetanus booster 12/18/2032 12/18/2022, 06/09, 03/24/2008, Additional history exists Zoster (shingles) series for age 50+ Completed 09/18/2020, 03/15/2020, 06/08/2013, Additional history exists Tdap Completed 12/18/2022, 06/29/2012 Medical Devices Implanted Type Area Secondary Set Up Man Device Identifier Shelf Expiration Date Model / Serial / Lot Screw Sm Joint 3.5x80mm Os Slf Tppng Bob - [id number] Implanted:Qty: 1 on 04/15/2015 by Rj Bui MD at [facility] Left: Leg [employer] [id number]# / / Screw Sm Joint 4x85mm Axsos Lock Slf Tppng [address] - [id number] Implanted:Qty: 1 on 04/15/2015 by Rj Bui MD at [facility] Left: Leg [employer] [id number]# / / Screw Sm Joint 3.5x75mm Os Slf Tppng Bob - [id number] Implanted:Qty: 1 on 04/15/2015 by Rj Bui MD at [facility] Left: Leg [employer] [id number]# / / Screw Sm Joint 3.5x85mm Os Slf Tppng Bob - [id number] Implanted:Qty: 1 on 04/15/2015 by Rj Bui MD at [facility] Left: Leg [employer] [id number]# / / Plate Tib Lt 10 Hole Axsos Prox Lateral - [id number] Implanted:Qty: 1 on 04/15/2015 by Rj Bui MD at [facility] Left: Leg [employer] [id number]# / / Screw Sm Joint 3.5x28mm Os Slf Tppng Bob - [id number] Implanted:Qty: 1 on 04/15/2015 by Rj Bui MD at [facility] Left: Leg [employer] [id number]# / / Screw Sm Joint 3.5x30mm Os Slf Tppng Bob - [id number] Implanted:Qty: 1 on 04/15/2015 by Rj Bui MD at [facility] Left: Leg [employer] [id number]# / / Screw Sm Joint 3.5x32mm Os Slf Tppng Bob - [id number] Implanted:Qty: 1 on 04/15/2015 by Rj Bui MD at [facility] Left: Leg [employer] [id number]# / / Screw Sm Joint 4x26mm Axsos Lock Slf Tppng [address] - [id number] Implanted:Qty: 1 on 04/15/2015 by Rj Bui MD at [facility] Left: Leg [employer] [id number]# / / Explanted Type Area Secondary Set Up Man Device Identifier Shelf Expiration Date Model / Serial / Lot K-Wire [employer] 10pk - [id number] Explanted:Qty: 2 on 04/15/2015 at [facility] Left: Leg [employer] [id number]# / / Advance Directives Documents on File Type Date Recorded 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 Healthcare Directive 06/09/2019 12:00 AM Power of Counter Installer 07/19/2006 * Full Code (Latest Code Status on File) Date Activated Date Inactivated Comments 12/28/2022 3:30 AM 01/02/2023 5:36 PM Question Answer Comments Code Status Discussion: Reviewed Preferences * Full Code Date Activated Date Inactivated Comments 02/06/2021 8:59 PM 02/14/2021 3:44 PM Question Answer Comments Code Status Discussion: Discussed * Full Code Date Activated Date Inactivated Comments 11/17/2019 5:03 PM 11/18/2019 12:45 PM Question Answer Comments Code Status Discussion: Not Discussed * Full Code Date Activated Date Inactivated Comments 10/29/2018 11:52 AM 11/02/2018 9:20 PM * Full Code Date Activated Date Inactivated Comments 07/27/2016 9:40 AM 07/30/2016 7:11 PM Question Answer Comments Code Status Discussion: Discussed Care Teams Fretted Instrument Maker Hand Relationship Specialty Start Date End Date Anna Marie Oglesby DO [facility] [place] [facility] [place] [address] PCP - General Family Practice 10/06/22 [facility] [address] [facility] [place] [address] 01/02/23
--- OUTSIDE RECORDS SUMMARY | 2023-10-05 22:11 | XMS_ITS | Encounter Summary ---
Author Name [facility] Organization [facility] Address [address], [place] [address] Support Name Relationship Address Phone SUZANNE SERRANO [...] A Feb 06, 2003 RR PART A [id number] [phone] MIKMOLLYRUDDY GranadoARD PATIENT MEDICARE (WNR) MEDICARE (M) RR PART B Feb 06, 2003 RR PART B [id number] MIKMOLLYRUDDY GranadoARD PATIENT MEDICARE (WNR) MEDICARE (M) PART A Feb 06, 2003 PART A [id number] ALANNAHRICKYRUDDYSHERYL PATIENT MEDICARE (WNR) MEDICARE (M) PART B Feb 06, 2003 PART B [id number] ZACHRUDDYSHERYL PATIENT MEDICARE PART D (WNR) MEDICARE () PART D Jun 08, 2022 PART D [id number] SHERYL SERRANO PATIENT [employer] MED[employer] SECONDARY (NO B EXC) UPREH S Jun 08, 2009 [id number] [phone] SHERYL SERRANO PATIENT [employer] MEDICARE SUPPLEMEN KAREN MEDIC ARE SUPPL EMENT Jun 08, 2009 [id number] SHERYL SERRANO PATIENT Selected Encounter This section includes the information on record at [place] for the Encounter. Date/Time Encounter Type Encounter Description Reason Provider Source Jun 02, 2023 08:02 AM Outpatient Encounter ADMIN PAT ACTIVTIES (MASNONCT) PARTHA ARMSTRONG [facility] Encounter Template Text not used by [place] Plan of Treatment: Future Appointments (+ 6 months) and Future Tests (+/- 45 days) The Plan of Treatment section includes future care activities for the patient from all [place] treatmentfacilities. This section includes future appointments and future orders which are active, pending or scheduled. Future Appointments This section includes appointments that were scheduled to occur 6 months from the date of the Encounter, up to a maximum of 20 appointments. The data comes from all [place] treatment facilities. Appointment Date/Time Appointment Type Appointme nt Facility Name Jul 23, 2023 01:00 PM AMBULATORY - MEDICINE [facility] October 15, 2023 02:30 PM AMBULATORY - SURGERY [facility] Social History: Smoking Status (Most current) and Tobacco Use (All prior to encounter date) This section includes the most current, and the historical, smoking and tobacco- related health factors from the [place] facility where the Encounter took place. Current Smoking Status This section includes the most current smoking, or tobacco-related health factor, from the [place] facility where the Encounter took place. Date/Time Current Smoking Status Comment Billie alcaraz Dec 18, 2022 01:00 PM VA-TOBACCO FORMER USER [facility] Tobacco Use History This section includes a history of the smoking, or tobacco-related health factors, that were collected on or before the date of the Encounter. The data comes from the [place] facility where the Encounter took place. Date/Time Smoking Status/Tobacco Use Comment F ludwig Dec 18, 2022 01:00 PM VA-TOBACCO QUIT [address] [facility] November 05, 2021 10:00 AM VA-TOBACCO FORMER USER [facility] November 05, 2021 10:00 AM [place]-TOBACCO QUIT [address] [facility] Dec 10, 2018 12:57 PM VA-TOBACCO FORMER USER [facility] Dec 10, 2018 12:57 PM VA-TOBACCO QUIT [address] [facility] Feb 25, 2018 12:23 PM VA-TOBACCO FORMER USER [facility] Feb 25, 2018 12:23 PM VA-TOBACCO QUIT [address] [facility] Apr 10, 2015 02:55 PM FORMER TOBACCO USER 7Y OR GREATE R [facility] Apr 27, 2014 10:17 AM FORMER TOBACCO USER 7Y OR GRE[address] R [facility] Jun 18, 2006 07:23 AM FORMER TOBACCO USER 7Y OR [facility] [facility] Advance Directives: All historical and current Section Date Range: From patient's date of to the date document was created. This section includes ALL of a patient's completed or amended [place] Advance and Rescinded Directives. The entries below indicate that a directive exists for the patient, but an actual copy is not included with this document. The data comes from all [place] facilities. Date Advance Directives Provider Source May 23, 2003 ADVANCE DIRECTIVE [facility] Encounter Notes: All associated encounter notes This section contains the clinical notes associated to the Encounter. Date/Time Encounter Note(s) Provider Source Jun 02, 2023 08:02 AM GRADUATE RECRUITER REFER RAL NOTE: LOCAL TITLE: TRAVELING COORDINATOR NOTE STANDARD TITLE: GRADUATE RECRUITER REFERRAL NOTE DATE OF NOTE: JUN 02, 2023@08:02 ENTRY DATE: JUN 02, 2023@08:02:28 AUTHOR: PARTHA ARMSTRONG EXP COSIGNER: URGENCY: STATUS: COMPLETED Please note, [facility] has scheduled requested urology through [facility]. Please monitor [facility] for records to be scanned or obtain records to review. SCHEDULED [facility] Consult Appt. on 06/29/23 @ 08:00 HSRM, CONSULT [id number] PID=MAY 22, 2023 PER CONSULT 's Scheduled Provider AUTH#: [id number] [facility] [id number] [id number] P: [phone] F: [phone] NPI#: [id number] /es/ PARTHA ARMSTRONG RN UTILIZATIONMANAGEMENT Signed: 06/02/2023 08:03 Receipt Acknowledged By: 06/06/2023 12:05 /es/ Uravshi Munguia MD Physician 06/02/2023 09:08 /es/ JAMISON HERNANDEZ, FRANCIA REGISTERED NURSE PARTHA ARMSTRONG [facility]
--- OUTSIDE RECORDS SUMMARY | 2023-10-05 22:11 | XMS_ITS | Encounter Summary ---
Author Name Department of [facility] Organization Department of [facility] Address [address], [place] [address] Support Name Relationship Address Phone SUZANNE SERRANO [...] A Feb 06, 2003 RR PART A [id number] MIKMOLLYRUDDY GranadoARD PATIENT MEDICARE (WNR) MEDICARE (M) RR PART B Feb 06, 2003 RR PART B [id number] IMKMOLLYRUDDY GranadoARD PATIENT MEDICARE (WNR) MEDICARE (M) PART A Feb 06, 2003 PART A [id number] ALANNAHRICKYRUDDYSHERYL PATIENT MEDICARE (WNR) MEDICARE (M) PART B Feb 06, 2003 PART B [id number] ZACHRUDDYSHERYL PATIENT MEDICARE PART D (WNR) MEDICARE (M) PART D Jun 08, 2022 PART D [id number] SHERYL SERRANO PATIENT [employer] MEDICARE SECONDARY (NO B EXC) UPREH S Jun 08, 2009 [id number] SHERYL SERRANO PATIENT [employer] MEDICARE SUPPLEMEN KAREN MEDIC ARE SUPPL EMENT Jun 08, 2009 [id number] SHERYL SERRANO PATIENT Selected Encounter This section includes the information on record at [place] for the Encounter. Date/Time Encounter Type Encounter Description Reason Pro vider Source Jun 02, 2023 08:47 AM Outpatient Encounter ADMIN PAT ACTIVTIES (MASNONCT) IHE Encounter Template Text not used by [place] Plan of Treatment: Future Appointments (+ 6 months) and Future Tests (+/- 45 days) The Plan of Treatment section includes future care activities for the patient from all [place] treatmentfacilities. This section includes future appointments and future orders which are active, pending or scheduled. Future Appointments This section includes appointments that were scheduled to occur 6 months from the date of the Encounter, up to a maximum of 20 appointments. The data comes from all [place] treatment facilities. Appointment Date/Time Appointment Type Appointme nt Facility Name Jul 23, 2023 01:00 PM AMBULATORY - MEDICINE [facility] October 15, 2023 02:30 PM AMBULATORY - SURGERY [facility] Advance Directives: All historical and current Section Date Range: From patient's date of to the date document was created. This section includes ALL of a patient's completed or amended [place] Advance and Rescinded Directives. The entries below indicate that a directive exists for the patient, but an actual copy is not included with this document. The data comes from all [place] facilities. Date Advance Directives Provider Source May 23, 2003 ADVANCE DIRECTIVE [facility] Encounter Notes: All associated encounter notes This section contains the clinical notes associated to the Encounter. Date/Time Encounter Note(s) Provider Source Jun 02, 2023 08:47 AM NURSING NOTE: LOCAL TITLE: CONSULT CARE COMPLETION-TVC NOTE STANDARD TITLE: NURSING NOTE DATE OF NOTE: JUN 02, 2023@08:47 ENTRY DATE: JUN 02, 2023@08:47:34 AUTHOR: LARRY HODGE COSIGNER: URGENCY: STATUS: COMPLETED Communication received via: Traveling Davis Consult TVC care coordination complete. Davis has been scheduled with requested service. =====COPY/PASTE===== SCHEDULED 05/28/23 14:50 AAKASH STAPLES SONIA A COM CARE-UROLOGY Consult Appt. on 06/29/23 @ 08:00 HSRM, CONSULT [id number] PID=MAY 22, 2023 PER CONSULT, PROVIDER KHUSHBOO YOUSSEF Future Appointments: Date Time Clinic ======= 06/29/2023 08:00 COM CARE-UROLOGY /es/ Larry Hodge RN Registered Nurse Signed: 06/02/2023 08:49 LARRY HODGE [facility]
--- OUTSIDE RECORDS SUMMARY | 2023-10-05 22:11 | XMS_ITS | Clinical Summary ---
Author Name Unknown Organization [facility] Address [address] [place] [address] Phone Care Team Providers Care Director Data Name Role Phone None, Nopcp Primary Care Provider Unavailabl e Allergies Active Allergy Reactions Criticality Noted Date Comments Atorvastatin 07/24/2020 Lisinopril 07/24/2020 Omeprazole 07/24/2020 Metoclopramide 07/24/2020 Medications Medication Sig Dispensed Refills Start Date End Date Status levothyroxine (SYNTHROID, LEVOTHROID) 175 MCG tablet Take 175 mcg by mouth every morning before breakfast Active Active Problems Problem Noted Date Diagnosed Date Fluid overload 07/24/2020 Essential hypertension 07/24/2020 End stage renal failure on dialysis 07/24/2020 Diabetes mellitus 07/24/2020 Social History Tobacco Use Types Packs/Day Years Used Date Smoking Tobacco: Former Smokeless Tobacco: Never Alcohol Use Standard Drinks/Week Comments Not Currently 0 (1 standard drink = 0.6 oz pur e alcohol) Sex and Gender Information Value Date Recorded Sex Assigned at Not on file Gender Identity Not on file Sexual Orientation Not on file Last Filed Vital Signs Vital Sign Reading Time Taken Comments Blood Pressure 155/68 07/24/2020 5:30 PM [employer] ARCHITECT Pulse 73 07/24/2020 5:30 PM [employer] ARCHITECT Temperature 36.7 ??C (98 ??F) 07/24/2020 5:15 PM [employer] ARCHITECT Respiratory Rate 20 07/24/2020 5:30 PM [employer] ARCHITECT Oxygen Saturation 98% 07/24/2020 5:30 PM [employer] ARCHITECT Inhaled Oxygen Concentration - - Weight 102 kg (224 lb) 07/24/2020 8:00 AM [employer] ARCHITECT Height 182.9 cm (6') 07/24/2020 8:00 AM [employer] ARCHITECT Body Mass Index 30.38 07/24/2020 8:00 AM [employer] ARCHITECT Plan of Treatment Not on file Care Teams Director Data Relationship Specialty Start Date End Date None, MD Nathaniel PCP - General 07/24/20
--- OUTSIDE RECORDS SUMMARY | 2023-10-05 22:11 | XMS_ITS | Encounter Summary ---
Author Name Department of [facility] Organization [facility] Address [address], [place] [address] Support Name Relationship Address Phone JAGRUTI MACKAY Next of Kin [address] [place] [address] JAGRUTI MACKAY Emergency Contact [address] [place] [...] A Feb 06, 2003 RR PART A [id number] JANETTEVannesa SHERYL PATIENT MEDICARE (WNR) MEDICARE (M) RR PART B Feb 06, 2003 RR PART B [id number] [phone] JANETTEVannesaSHERYL PATIENT MEDICARE (WNR) MEDICARE (M) PART A Feb 06, 2003 PART A [id number] [phone] SHERYL MACKAY PATIENT MEDICARE (WNR) MEDICARE (M) PART B Feb 06, 2003 PART B [id number] SHERYL MACKAY PATIENT MEDICARE PART D (WNR) MEDICARE () PART D Jun 08, 2022 PART D [id number] SHERYL MACKAY PATIENT [employer] MEDICARE SECONDARY (NO B EXC) UPREH S Jun 08, 2009 [id number] SHERYL MACKAY PATIENT [employer] MEDICARE SUPPLEMEN KAREN MEDIC ARE SUPPL EMENT Jun 08, 2009 [id number] SHERYL MACKAY PATIENT Selected Encounter This section includes the information on record at [place] for the Encounter. Date/Time Encounter Type Encounter Description Reason Provider Source Aug 10, 2023 03:15 PM HC PRO PHONE CALL 5-10 MIN TELEPHONE PRIMARY CARE ICD-10-CM H04.129 Dry eye syndrome of unspecified lacrimal gland STUB,JAMISON Vannesa E Encounter Template Text not used by [place] Assessments - Encounter Diagnoses This section includes the primary and secondary diagnoses documented for the Encounter. Date/Time Primary/Secondary Diagnosis Diagnosis Name Provider Source Aug 10, 2023 03:15 PM PRIMARY Dry eye syndrome of unspecified lacrimal gland STUB,JAMISON Vannesa [facility] Plan of Treatment: Future Appointments [...] [place] treatment facilities. Appointment Date/Time Appointment Type Appointme nt Facility Name October 15, 2023 02:30 PM AMBULATORY - SURGERY [facility] Social History: Smoking Status (Most current) and [...] 18, 2022 01:00 PM VA-TOBACCO FORMER USER [facility] Tobacco Use History This section includes a history of the smoking, or tobacco-related health factors, that were collected on or before the date of the Encounter. The data comes from the [place] facility where the Encounter took place. Date/Time Smoking Status/Tobacco Use Comment F acility Dec 18, 2022 01:00 PM VA-TOBACCO QUIT 15 YRS OR MORE [facility] November 05, 2021 10:00 AM VA-TOBACCO FORMER USER [facility] November 05, 2021 10:00 AM VA-TOBACCO QUIT 15 YRS OR MORE [facility] Dec 10, 2018 12:57 PM VA-TOBACCO FORMER USER [facility] Dec 10, 2018 12:57 PM VA-TOBACCO QUIT 15 YRS OR MORE [facility] Feb 25, 2018 12:23 PM VA-TOBACCO FORMER USER [facility] Feb 25, 2018 12:23 PM VA-TOBACCO QUIT 15 YRS OR MORE [facility] Apr 10, 2015 02:55 PM FORMER TOBACCO USER 7Y OR GREATE R [facility] Apr 27, 2014 10:17 AM FORMER TOBACCO USER 7Y OR GREATE R [facility] Jun 18, 2006 07:23 AM FORMER TOBACCO USER 7Y OR GREATE R [facility] Advance Directives: All historical and [...] 2003 ADVANCE DIRECTIVE [facility] ANDREW [facility] Encounter Notes: All associated encounter notes This section contains the clinical notes associated to the Encounter. Date/Time Encounter Note(s) Provider Source Aug 10, 2023 03:17 PM REPORT OF CONTACT: LOCAL TITLE: PATIENT CONTACT NOTE STANDARD TITLE: REPORT OF CONTACT DATE OF NOTE: AUG 10, 2023@15:17 ENTRY DATE: AUG 10, 2023@15:17:04 AUTHOR: JAMISON HERNANDEZ EXP COSIGNER: URGENCY: STATUS: COMPLETED Patient contact Name of : SHERYL MACKAY Name/Relationship of Contact if other than : Jagruti--spouse Date & Time of Contact: Aug@15:17 Type of Contact: Telephone Reason for Contact: Eye drops Spoke with spouse, currently at dialysis during time of call. Associate Property Manager relayed PCP message as requested to spouse Re: a request came through for me to order cyclosporin eye drops for Mikki Mackay [id number]. I ordered it, then the pharmacy discontinued it because it is restricted to the eye department. Please let know that only an eye doctor can order it. Eye clinic is self referral ([phone]). Thank you! Spouse states that are in [place] right now and will reach out to the Eye doctor sees in [facility] regarding the eye drop prescription. Associate Property Manager thanked for call. /katey/ JAMISON HERNANDEZ RN REGISTERED NURSE Signed: 08/10/2023 15:22 JAMISON HERNANDEZ [facility]
--- OUTSIDE RECORDS SUMMARY | 2023-10-05 22:11 | XMS_ITS | Continuity of Care Document ---
Author Name Unknown Organization [facility] Address [address] [address] [place] [address] Phone Care Team Providers Care Fitting Room Inspector Name Role Phone Unavailable Unavailable Unavailable Advance Directives Directive Yes / No Effective Date File Name No Information Encounters Encounter Description Practice Location Reason(s) For Visit Diagnoses Date Provider Providers Copied on Encounter [facility], [address] [address], [place], [place], [id number], [place] tel:[phone] [facility] No Information Aug-201 8 No [...]
--- OUTSIDE RECORDS SUMMARY | 2023-10-05 22:11 | XMS_ITS | Encounter Summary ---
Author Name [facility] of [facility] Organization [facility] Address [address], [place] [address] Support Name Relationship Address Phone SUZANNE SERRANO [...] A Feb 06, 2003 RR PART A [id number] [phone] MIKMOLLYRUDDY GranadoARD PATIENT MEDICARE (WNR) MEDICARE () RR PART B Feb 06, 2003 RR PART B [id number] MIKMOLLYRUDDY GranadoARD PATIENT MEDICARE (WNR) MEDICARE () PART A Feb 06, 2003 PART A [id number] MIKMOLLYRUDDY GranadoARD PATIENT MEDICARE (WNR) MEDICARE () PART B Feb 06, 2003 PART B [id number] JANETTEVannesa SHERYL PATIENT MEDICARE PART D (WNR) MEDICARE () PART D Jun 08, 2022 PART D [id number] SHERYL SERRANO PATIENT [employer] MEDICARE SECONDARY (NO B EXC) UPREH S Jun 08, 2009 [id number] SHERYL SERRANO PATIENT [employer] MEDICARE SUPPLEMEN KAREN MEDIC ARE SUPPL EMENT Jun 08, 2009 [id number] SHERYL SERRANO PATIENT Selected Encounter This section includes the information on record at [place] for the Encounter. Date/Time Encounter Type Encounter Description Reason Provider Source Jul 23, 2023 01:00 PM HEARING AID CHECK BOTH EARS AUDIOLOGY ICD-10-CM Z46.1 Encounter for fitting and adjustment of hearing aid TIFFANI MAYFIELD Marika Encounter Template Text not used by [place] Assessments - Encounter Diagnoses This section includes the primary and secondary diagnoses documented for the Encounter. Date/Time Primary/Secondary Diagnosis Diagnosis Name Provider Source Jul 23, 2023 01:55 PM PRIMARY Encounter for fitting and adjustment of hearing aid CHERYL ELKINS Plan of Treatment: Future Appointments (+ 6 [...] 02:30 PM AMBULATORY - SURGERY [facility] Advance Directives: All historical and [...] May 23, 2003 ADVANCE DIRECTIVE KINGS ANDREW [facility] Encounter Notes: All associated encounter notes This section contains the clinical notes associated to the Encounter. Date/Time Encounter Note(s) Provider Source Jul 23, 2023 01:44 PM AUDIOLOGY NOTE: LOCAL TITLE: AUDIOLOGY REPAIR NOTE STANDARD TITLE: AUDIOLOGY NOTE DATE OF NOTE: JUL 23, 2023@13:44 ENTRY DATE: JUL 23, 2023@13:44:56 AUTHOR: CHERYL ELKINS COSIGNER: TIFFANI MAYFIELD URGENCY: STATUS: COMPLETED AUDIOLOGY REPAIR NOTE Has ADDENDA SHERYL SERRANO was seen for follow-up appointment: - presents self to clinic with his , states HAs are working but pt. does not use them much at home. States Case combi charging, but mirna part of cupola charger no longer stays on with charge for 3 days like it use to. RESULTS: Otoscopy: normal anatomic structures were visualized on the Left ear canal and tympanic membrane normal anatomic structures were visualized on the Right ear canal and tympanic membrane IMPRESSIONS AND RECOMMENDATIONS: Reviewed over all general care and benefits of using [facility]ICKSON's earmolds cleaned vents cleared wax filters changed microphones brushed Both devices in well working. Encouraged pt to use Hearing aids more every day. - qualifies for new Hearing Exam. Pt. states will schedule appt with [facility] [place] as soon as he returns home. Pt. satisfied, verbalized understanding. SONOVA PHONAK AUDEO M90-R CHARLES R [id number] SONOVA PHONAK AUDEO M90-R CHARLES L [id number] PLAN: Jasper should contact the clinic as needed with hearing or hearing aid concerns Jasper should monitor hearing status with a re-evaluation every 2 years, or sooner if a change in hearing is noted Other/Additional: Will schedule Hearing Exam with Home [facility]. /katey/ CHERYL ELKINS Health Sh[employer] Planer Operator Helper Signed: 07/23/2023 13:55 /katey/ TIFFANI MAYFIELD Maintenance Supervisor Cosigned: 07/24/2023 08:53 07/24/2023 ADDENDUM STATUS: COMPLETED I concur with tech's/GH/RR note as written dated 07/23/23 and for Cleaning/HAC/ Repair provided to one or both H/Aid/ [facility]ICKSON, sent to vendor for REPAIR OR L/D Repl. I also agree with CPT codes submitted for this encounter/treatment plan for RTC/follow up Pt care at [facility]. /katey/ TIFFANI MAYFIELD Maintenance Supervisor Signed: 07/24/2023 08:55 CHERYL ELKINS [facility]
--- OUTSIDE RECORDS SUMMARY | 2023-10-05 22:11 | XMS_ITS | Clinical Summary ---
Author Name Unknown Organization [facility] Facility Address [address] [place] [address] Care Team Providers Care Trawl Net Maker Name Role Phone Unavailable Primary Care Provider Unavailabl e Social History Tobacco Use Types Packs/Day Years Used Date Smoking Tobacco: Never Assessed Sex and Gender Information Value Date Recorded Sex Assigned at Not on file Gender Identity Not on file Sexual Orientation Not on file Plan of Treatment Health Maintenance Due Date Last Done Comments Hepatitis B Vaccine (1 of 5 - Risk Dialysis 4-dose series) 1960 Pneumococcal Vaccine: 65+ Ye ars (3 of 3 - PPSV23 or PCV20) 06/06/2015 04/11/2015, 03/19/1994 Diabetes: Ophthalmology Exam 09/08/2019 Diabetes: Pedal Pulse Checked 09/08/2019 Diabetes: Sensory Foot Exam 09/08/2019 Diabetes: Visual Foot Exam 09/08/2019 Diabetes: Hemoglobin A1C 12/24/2020 021, 09/17/2020, 03/26/2020, Additional history exists Influenza Vaccine (Season Ended) 2024 02/18/2016, 04/11/2015, 03/20/2008, Additional history exists
--- OUTSIDE RECORDS SUMMARY | 2023-10-05 22:11 | XMS_ITS | Data Portability ---
Author Name Unknown Address [address] [place] [address] Phone [phone] Organization [facility] Address [address] [place] [address] Assessment No assessment recorded. Plan of Treatment Reminders Order Date Submit Date Provider Last Modified By Organization Details Last Modified Time Details Appointments None record ed. Lab None record ed. Referral None record ed. Procedures None record ed. Surgeries None record ed. Imaging None record ed. Medication Orders None record ed. Patient TargetsNo targets recorded. Patient InstructionsNo instructions recorded. Reason for Referral None Reported. Medical Equipment None Reported. Allergies Allergen ID Allergen Name Allergen Category Reaction Reaction Severity Criticality Documentation Date Start Date Code Code System Note Provider Name and Address Organization Details Recorded Time 62478 Lipitor medicatio n other Not available Not available 08/03/2020 80856 5 RxNorm leg cramp ing [facility], [place] [facility] 18:19:27 10938 lisinopri l medicatio n Not available Not available Not available 08/03/2020 83198 RxNorm [facility] [place] [facility] 18:19:46 78214 omeprazol e medicatio n diarrhea Not available Not available 08/03/2020 7646 RxNorm [facility], [place] [facility] 18:19:58 23661 metoclopr amide Not available Not available Not available Not available 08/03/2020 6915 RxNorm [facility], [place] - [facility] 18:20:17 Medications Not known to be on any medication Vitals Date Recorded Body temperature Provider Name a nd Address Organization Details Last Updated DateTime 08/03/2020 97.5 [degF] [facility], [place] [facility] 08/03/2020 18:18:56 Social History None recorded. Functional Status None recorded. Mental Status None recorded. Family History Nothing Reported. Medical History No medical history recorded. Immunizations Vaccine Type Date Status Provider Name and Address Organization Details Recorded Time COVID-19, mRNA, LNP-S, PF, 30 mcg/0.3 mL dose 08/03/2020 completed jorge maynard [facility], [place] [facility] 08/03/2020 18:23:43 COVID-19, mRNA, LNP-S, PF, 30 mcg/0.3 mL dose 08/23/2020 completed Tiffanie Rod[facility]guez [facility], [facility] 08/23/2020 16:46:11 Past Encounters Encounter ID Performer Location Encounter Start Date Encounter Closed Date Diagnosis/Indication Diagnosis SNOMED-CT Code [id number] Ashley Wilson, [employer] 1st Dose Vaccine [place] [address] [place] [address] 08/03/2020 18:12:43 08/16/2020 08:23:48 Administration of SARS-CoV-2 antigen vaccine [id number] JOHN Oquendo [place] COVID Vaccine ([facility]) [address] [place] [address] 08/23/2020 15:11:25 11/21/2020 07:30:32 Administration of SARS-CoV-2 antigen vaccine [id number] Health Concerns Section Related Observation LastModified by Organization Detai ls LastModified Time None Recorded Concern Status LastModified by Organization Details LastModified Time None Recorded Advance Directives Directive None Recorded Payers Encounter Date Sequence Insurance Name Policy Number Policy Blanchard Covered Member ID Blanchard Member ID Guarantor Name 08/23/2020 1 [place]IC[place]: [employer] Korey Mackay [id number] Korey Mackay 08/03/2020 1 [place] [employer] Korey Mackay [id number] Korey Mackay
--- OUTSIDE RECORDS SUMMARY | 2023-10-05 22:57 | XMS_ITS | Continuity of Care Document ---
Author Name [facility] Organization [facility] Care Team Providers Care [employer] Umpire Name Role Phone [facility] Unavailable Unavailable Problems Combined list of problems from Department of Defense and Veterans 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 It does not include entries that were removed or entered in error. Problem Status Onset Date Problem Type Date of Resolution Comments Source Adenoma of large intestine Active Condition Jan 17, 2005 Entered By: TOMMY SARMIENTO Comment: colonoscopy and polypectomy 12/10, tubular adenoma at [facility] Cataract, Senile, Unsp Active Condition [facility] Chronic cough Active Condition [facility] Chronic obstructive lung disease Active Condition [facility] Chronic rhinitis Active Condition 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 Hemorrhoid Active Condition [facility] Hyperparathyroidism due to renal insufficiency Active Condition [facility] Hypothyroidism Active Condition 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 chart [facility] Psoriasis Nos Active Condition [facility] Shared care - business process consultant and GP Active Condition Dec 02 Entered By: CARLOS DALTON Comment: [facility] [phone] ov 2020 Entered By: CARLOS DALTON Comment: Sandwich Board Carrier: Dr James Pérez [phone] ov 2020 Entered By: CARLOS DALTON Comment: [employer] Cough (ICD-9-CM 786.2) Inactive Condition 03/23/2013 [facility] Diabetic Foot Ulcer (ICD-9-CM 250.80/707.8) Inactive Condition 03/23/2013 [facility] Diagnosis: ICD-10-CM H04.129 Dry eye syndrome of unspecified lacrimal gland Active Diagnosis [facility] Diagnosis: ICD-10-CM Z46.1 Encounter for fitting and adjustment of hearing aid Active Diagnosis [facility] Diagnosis: ICD-10-CM N18.6 End stage renal disease Active Diagnosis [facility] Diagnosis: ICD-10-CM R26.9 Unspecified abnormalities of gait and mobility Active Diagnosis [facility] Diagnosis: ICD-10-CM J44.9 Chronic obstructive pulmonary disease, unspecified Active [facility] Diagnosis: ICD-10-CM Z65.8 Oth problems related to psychosocial circumstances Active Diagnosis [facility] Diagnosis: ICD-10-CM R05.3 Chronic cough Active Diagnosis [facility] JERRY [facility] Diagnosis: ICD-10-CM G47.33 Obstructive sleep apnea (adult) (pediatric) Active Diagnosis [facility] Diagnosis: ICD-10-CM Z71.9 Counseling, unspecified Active Diagnosis [facility] Medications Combined list of outpatient medications from [...] (FOR IMMEDIAT E RELIEF). INHALA TION 08/21/2023 [id number] CASANDRA DALTON 2022 2 [facility] AZELASTINE HCL 137MCG/SPRA Y INHL,NASAL, 30ML SPRAY 1 PUFF IN EACH NOSTRIL TWICE A DAY FOR NASAL SYMPTOMS NASAL ACTIVE 01/13/2024 [id number] 3 RODRÍGUEZ MATHEWS 2022 2 [facility] CALCIUM CARBONATE TAB,CHEWABL E CHEW ONE TABLET BY MOUTH FOUR TIMES A DAY NEEDED ORALLY ACTIVE RODRÍGUEZ MATHEWS 2022 [facility] COENZYME Q10 CAP/TAB TAKE ONE TABLET BY MOUTH EVERY DAY ORALLY ACTIVE CASANDRA DALTON 2012 [facility] CYCLOSPORIN E 0.05% (PF) EMULSION,OP H,0.4ML INSTILL 1 DROP BOTH EYES TWICE A DAY BOTH EYES ACTIVE 08/10/2024 [id number] 4 FB-PURFEE RST,MATHEW OD 2023 60 [facility] CYCLOSPORIN E 0.05% (PF) EMULSION,OP H,0.4ML INSTILL 1 DROP BOTH EYES TWICE A DAY BOTH EYES 03/25/2023 [id number] 3 FB-PURFEE RST,MATHEW OD 2021 60 [facility] DEXTROMETHO RPHAN HBR 10MG/GUAIFE NESIN 100MG/5ML (AF & SF) LIQUID TAKE 1 TEASPOON FUL BY MOUTH EVERY 4 HOURS NEEDED FOR COUGH AND CONGESTI ON ORALLY ACTIVE 03/09/2024 [id number] 4 RODRÍGUEZ MATHEWS 2022 120 [place] [facility] DIALYVITE TAB TAKE 1 TABLET BY MOUTH EVERY DAY ORALLY ACTIVE 07/02/2024 [id number] 4 RODRÍGUEZ MATHEWS 2023 100 [place] [facility] DIALYVITE TAB TAKE 1 TABLET BY MOUTH EVERY DAY ORALLY DISCONT INUED 09/10/2023 [id number] 4 RODRÍGUEZ MATHEWS 2022 100 [facility] DM 10/GUAIFENE SN 100MG/5ML (ALC-F/SF)S YR TAKE 5 ML (1 TEASPOON FUL) BY MOUTH EVERY 8 HOURS NEEDED FOR COUGH ORALLY DISCONT INUED 08/21/2023 [id number] 3 CASANDRA DALTON 2022 360 [facility] FLUTICASONE 250MCG/SALM ETEROL 50MCG INHL,ORAL,D ISKUS,60 INHALE 1 PUFF BY INHALATI ON TWICE A DAY TO PREVENT TROUBLE BREATHIN G -RINSE MOUTH AFTER USING INHALA TION 09/23/2023 [id number] 4 RODRÍGUEZ MATHEWS [address] [facility] HYDROCORTIS ONE 2.5% CREAM,TOP APPLY THIN LAYER TOPICALL Y EVERY DAY NEEDED HEMORRHO ID TOPICA LLY 01/09/2023 [id number] 3 RODRÍGUEZ MATHEWS 2022 30 [facility] INSULIN,ASP ART,HUMAN (EQV-NOVOLO G) 100 UNIT/ML,FLE XPEN,3ML INJECT 5 UNITS UNDER THE SKIN TWICE A DAY TO DECREASE BLOOD SUGAR-- INJECT IMMEDIAT LINDA BEFORE MEAL (PEN FILL APPROVED ) REPLACES REGULAR INSULIN PEN SUBCUT ANEOUS 05/13/2023 [id number] 3 RODRÍGUEZ MATHEWS 2021 5 [facility] INSULIN,GLA RGINE,HUMAN 100 UNIT/ML INJ,SOLOSTA R,3ML INJECT 18 UNITS UNDER THE SKIN EVERY DAY FOR DIABETES DISCAR D PEN 28 DAYS AFTER INITIAL USE SUBCUT ANEOUS DISCONT INUED 05/13/2023 [id number] 3 RODRÍGUEZ MATHEWS 2021 5 [facility] INSULIN,GLA RGINE,HUMAN 100 UNIT/ML INJ,SOLOSTA R,3ML INJECT 18 UNITS UNDER THE SKIN EVERY DAY FOR DIABETES DISCAR D PEN 28 DAYS AFTER INITIAL USE SUBCUT ANEOUS DISCONT INUED (EDIT) 06/06/2024 [id number] 4 RODRÍGUEZ MATHEWS 2023 5 [facility] INSULIN,GLA RGINE-YFGN 100UNIT/ML INJ PEN,3ML INJECT 18 UNITS UNDER THE SKIN EVERY DAY FOR DIABETES DISCAR D PEN 28 DAYS AFTER INITIAL USE SUBCUT ANEOUS ACTIVE 06/09/2024 [id number] 4 RODRÍGUEZ MATHEWS 2023 5 [facility] LEVOTHYROXI NE NA 175MCG TAB (SYNTHROID) TAKE ONE TABLET BY MOUTH EVERY DAY FOR THYROID [facility] 08/01/2023 [id number] 3 RODRÍGUEZ MATHEWS 2022 90 [place] [facility] LEVOTHYROXI NE NA 175MCG TAB (SYNTHROID) TAKE ONE TABLET BY MOUTH EVERY DAY FOR THYROID OR[facility]CONT [facility] 07/30/2023 [id number] 3 RODRÍGUEZ MATHEWS 2022 90 [place] [facility] LEVOTHYROXI NE NA 200MCG TAB (SYNTHROID) TAKE ONE TABLET BY MOUTH EVERY DAY FOR THYROID ORALLY ACTIVE 01/13/2024 [id number] 4 RODRÍGUEZ MATHEWS 2022 90 [place] [facility] LORATADINE 10MG TAB TAKE ONE TABLET BY MOUTH EVERY DAY NEEDED ORALLY ACTIVE RODRÍGUEZ MATHEWS 2022 [place] [facility] MARINE LIPID (FISH OIL) CAP,ORAL TAKE 1200MG BY MOUTH EVERY DAY ORALLY ACTIVE CASANDRA DALTON 2010 [place] [facility] MONTELUKAST NA 10MG TAB TAKE ONE TABLET BY MOUTH EVERY DAY ORALLY ACTIVE 05/08/2024 [id number] 4 CASANDRA DALTON 2022 90 [place] [facility] MONTELUKAST NA 10MG TAB TAKE ONE TABLET BY MOUTH EVERY DAY ORALLY DISCONT INUED 05/01/2023 [id number] 3 CASANDRA DALTON 2021 90 [place] [facility] NITROGLYCER IN 0.4MG TAB,SUBLING UAL DISSOLVE ONE TABLET UNDER THE TONGUE PRN SUBLIN GUAL ACTIVE CASANDRA DALTON [address] [facility] PANTOPRAZOL E NA 40MG TAB,EC TAKE ONE TABLET BY MOUTH EVERY DAY ONE-HALF HOUR BEFORE EATING. ORALLY ACTIVE 07/02/2024 [id number] 4 CASANDRA DALTON [address] [facility] PANTOPRAZOL E NA 40MG TAB,EC TAKE ONE TABLET BY MOUTH EVERY DAY ONE-HALF HOUR BEFORE EATING. ORALLY DISCONT INUED 05/29/2023 [id number] 3 CASANDRA DALTON [address] [facility] PRAVASTATIN NA 40MG TAB TAKE ONE TABLET BY MOUTH AT BEDTIME FOR CHOLESTE ROL ORALLY ACTIVE 06/06/2024 [id number] 4 RODRÍGUEZ MATHEWS [address] [facility] PRAVASTATIN NA 40MG TAB TAKE ONE TABLET BY MOUTH AT BEDTIME FOR CHOLESTE ROL ORALLY DISCONT INUED 06/05/2024 [id number] 3 CASANDRA DALTON [address] [facility] PRAVASTATIN NA 40MG TAB TAKE ONE TABLET BY MOUTH AT BEDTIME FOR CHOLESTE ROL ORALLY DISCONT INUED 05/29/2023 [id number] 3 CASANDRA DALTON 2021 90 [facility] TIOTROPIUM 2.5MCG/ACTU AT INHL,ORAL,6 0D,4GM INHALE TWO PUFFS BY INHALATI ON EVERY DAY FOR ASTHMA INHALA TION ACTIVE 08/26/2024 [id number] 4 ZULETA,NM NA 2023 1 [facility] TIOTROPIUM 2.5MCG/ACTU AT INHL,ORAL,6 0D,4GM INHALE TWO PUFFS BY INHALATI ON EVERY DAY FOR ASTHMA INHALA TION DISCONT INUED 10/29/2023 [id number] ZULETA,NM NA 2022 1 [facility] VANICREAM APPLY THIN LAYER TOPICALL Y EVERY DAY FOR DRY SKIN TOPICA LLY ACTIVE 12/19/2023 [id number] 4 RODRÍGUEZ MATHEWS [address] [facility] VANICREAM APPLY TO DRY SKIN TOPICALL Y EVERY DAY NEEDED FOR DRY SKIN TOPICA LAUREN TOUSSAINT INUED 05/01/2023 [id number] 3 SHACASANDRA Perez [address] [facility] VITAMIN E 400UNT CAP TAKE 1 CAPSULE BY MOUTH EVERY DAY ORALLY ACTIVE [facility] [address] [facility] ZINC SULFATE TAB TAKE 50MG BY MOUTH EVERY DAY ORALLY ACTIVE [facility] [address] [facility] Allergies, Adverse Reactions, Alerts Combined list of allergies from Department of [facility] and Veterans 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 It does not include entries that were removed or entered in error. Substance Category Reaction Severity Reaction type Status Date Reported Comments Source ATORVASTATIN Propensity to adverse reactions to drug (finding) Pain in lower limb active 9 [facility] DOXYCYCLINE Propensity to adverse reactions to drug (finding) PRURITIS, Eruption active 4 [facility] HYDROCODONE Propensity to adverse reactions to drug (finding) Disorientat ed, Drowsy, Hallucinati ons active 3 [facility] LIPITOR Propensity to adverse reactions to drug (finding) Cramp active 0 [facility] LISINOPRIL Propensity to adverse reactions to drug (finding) Abdominal discomfort active 7 [facility] METOCLOPRAMI DE Propensity to adverse reactions to drug (finding) Gynecomasti a active 0 [facility] OMEPRAZOLE Propensity to adverse reactions to drug (finding) Diarrhea active 0 [facility] SIMVASTATIN Propensity to adverse reactions to drug (finding) MUSLCE CRAMPS active 4 [facility] Immunizations Combined list of available immunizations from the Department of [facility] and [facility] 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 Immunization Series Date Given Administered By Site Reaction Lot Number CVX Code Drug Chestnut Tanner Status Comments Source TDAP 2022 [facility] RIGHT DELTO ID [id number] [address] [facility] INFLUENZA, UNSPECIFIED FORMULATION [address] [facility] INFLUENZA, UNSPECIFIED FORMULATION [address] [facility] ZOSTER RECOMBINANT [address] [facility] ZOSTER RECOMBINANT 1 [address] [facility] INFLUENZA, SEASONAL, INJECTABLE, PRESERVATIVE FREE [address] [facility] INFLUENZA, UNSPECIFIED FORMULATION 2018 88 complet ed [facility] INFLUENZA, SEASONAL, INJECTABLE, PRESERVATIVE FREE [address] [facility] INFLUENZA, HIGH DOSE SEASONAL [address] [facility] INFLUENZA, HIGH DOSE SEASONAL [address] [facility] PNEUMOCOCCAL CONJUGATE PCV 13 2014 133 complet ed [employer] [id number] 08/22 [facility] INFLUENZA, UNSPECIFIED FORMULATION [address] [facility] INFLUENZA, UNSPECIFIED FORMULATION [address] [facility] PNEUMOCOCCAL, UNSPECIFIED FORMULATION 2012 109 complet ed [employer], [id number], [facility] TDAP 2012 115 complet ed [facility] TDAP [address] [facility] ZOSTER LIVE 2012 121 complet ed [employer] Lot#[id number] [id number] 14 [facility] INFLUENZA, UNSPECIFIED FORMULATION [address] [facility] INFLUENZA, UNSPECIFIED FORMULATION [address] [facility] INFLUENZA, UNSPECIFIED FORMULATION [address] [facility] INFLUENZA, UNSPECIFIED FORMULATION [address] [facility] TD(ADULT) UNSPECIFIED FORMULATION [address] [facility] INFLUENZA (HISTORICAL) [address] [facility] INFLUENZA (HISTORICAL) [address] [facility] INFLUENZA, UNSPECIFIED FORMULATION [address] [facility] INFLUENZA, UNSPECIFIED FORMULATION [address] [facility] PNEUMOCOCCAL, UNSPECIFIED FORMULATION [address] [facility] TD(ADULT) UNSPECIFIED FORMULATION 2003 139 complet ed due next year [facility] INFLUENZA (HISTORICAL) 2002 88 complet ed pt states he had a Influenza vaccinati on this yr [facility] TD(ADULT) UNSPECIFIED FORMULATION [address] [facility] Vital Signs Combined list of inpatient and outpatient Vital Signs from Department of Defense and Veterans [facility], ranging from 12 months to all on [...] ADM Date DC Date Status Disposition Source [facility] CASE MANAGEMENT [id number] Diagnos is: ICD-10- CM Z71.9 Shared Services Manager ing, unspeci fied
PAULETTE CHAUHAN 04/08 [facility] [place] [facility] Outpatient Encounter [id number] 04/10 [facility] [place] [facility] Outpatient Encounter [id number] 04/25 [facility] [place] [facility] Outpatient Encounter [id number] 04/25 [facility] [place] [facility] Outpatient Encounter [id number] 05/06 [facility] [place] [facility] Outpatient Encounter [id number] 05/08 [facility] CASE MANAGEMENT [id number] JENNIFER THAPA CCA 05/13 [facility] Outpatient Encounter [id number] 05[facility]20 [facility] Outpatient Encounter [id number] 06/03 [facility] [place] [facility] Outpatient Encounter [id number] 06/04 [place] [facility] [facility] En[facility] [id number] 06/05 [facility] [place] [facility] Outpatient Encounter [id number] 06/08 [place] [facility] [place] [facility] Outpatient Encounter [id number] 06/08 [place] [facility] [place] [facility] Outpatient Encounter [id number] 06/23 [place] [facility] [place] [facility] Outpatient Encounter [id number] 08/06 [place] [facility] [place] [facility] Outpatient Encounter [id number] 08/11 [place] [facility] [place] [facility] Outpatient Encounter [id number] 08/11 [place] [facility] [place] [facility] Outpatient Encounter [id number] 08/14 [place] [facility] [place] [facility] HC PRO PHONE CALL 5-10 MIN [id number] Diagnos is: ICD-10- CM G47.33 Obstruc tive sleep apnea (adult) (pediat jocelynn)
KARON YOUNG 08/15 [place] [facility] En[facility] [id number] 08/26 [facility] [place] [facility] Outpatient Encounter [id number] 10/27 [place] [facility] [place] [facility] PT EDUCATION NOC INDIVID [id number] Diagnos is: ICD-10- CM G47.33 Obstruc tive sleep apnea (adult) (pediat jocelynn)
KINGS ROCHA 10/28 [place] [facility] [place] [facility] Outpatient Encounter [id number] 11/05 [facility] [place] [facility] Outpatient Encounter [id number] 11/26 [facility] [place] [facility] Outpatient Encounter [id number] MARY ELLEN MAY CHRIST Mccall 12/10 [place] [facility] [place] [facility] Outpatient Encounter [id number] 12/10 [facility] [place] [facility] Outpatient Encounter [id number] 12[facility]10 [facility] OFFICE O/P EST HI 40-54 MIN [id number] Diagnos is: ICD-10- CM R05.3 Chronic cough<b r/> Saskia MATHEWS H 12/18 [facility] [place] [facility] Outpatient Encounter [id number] 01/07 [facility] [place] [facility] Outpatient Encounter [id number] 02/05 [facility] [place] [facility] Outpatient Encounter [id number] 02/11 [facility] [place] [facility] PRO PHONE CALL 21-30 MIN [id number] Diagnos is: ICD-10- CM Z65.8 Oth problem s related to psychos ocial circums tances< br/> VESNA GRAY 02/11 [facility] [place] [facility] Outpatient Encounter [id number] DEBRA PINTO 02/18 [facility] SELF CARE MNGMENT TRAINING [id number] Diagnos is: ICD-10- CM J44.9 Chronic obstruc tive pulmona ry disease , unspeci fied
MAGGIE EVANS 02/19 [facility] [place] [facility] Outpatient Encounter [id number] 03/03 [place] [facility] [place] [facility] Outpatient Encounter [id number] Diagnos is: ICD-10- CM R26.9 Unspeci fied abnorma lities of gait and mobilit y
NANCY HOWARD M 03/04 [place] [facility] [place] [facility] Outpatient Encounter [id number] 03/06 [place] [facility] [place] [facility] Outpatient Encounter [id number] 03/26 [place] [facility] [place] [facility] TARGETED CASE MANAGEMENT [id number] Chani PERAZA L 05/04 [place] [facility] [place] [facility] PRO PHONE CALL 5-10 MIN [id number] Diagnos is: ICD-10- CM N18.6 End stage renal disease
FADUMO HERNANDEZ K 05/05 [facility] [place] [facility] TARGETED CASE MANAGEMENT [id number] Chani PERAZA 05/05 [facility] [place] [facility] TARGETED CASE MANAGEMENT [id number] Chani PERAZA L 05/13 [place] [facility] [id number] JENNIFER THAPA CCA 05/13 [facility] Outpatient Encounter [id number] 05/13 [facility] Outpatient Encounter [id number] GUADALUPE ACOSTA 05/14 [facility] [place] [facility] CASE MANAGEMENT [id number] Chani PERAZA L 05/19 [place] [facility] Outpatient Encounter [id number] 05/19 [facility] Outpatient Encounter [id number] ARYCHARLEYChani Gomez 05/27 [facility] Outpatient Encounter [id number] 05/28 [facility] Outpatient Encounter [id number] 05/28 [facility] Outpatient Encounter [id number] ANSELMO ARMSTRONG NANCY A 06/02 [facility] Outpatient Encounter [id number] 06/02 [facility] Outpatient Encounter [id number] DARRELL LOO 06/17 [facility] Outpatient Encounter [id number] 06/18 [facility] Outpatient Encounter [id number] Jared RUVALCABA 06/25 [facility] HEARING AID CHECK BOTH EARS [id number] Diagnos is: ICD-10- CM Z46.1 Encount er for fitting and adjustm ent of hearing aid<br/ > DANELLE MAYFIELD 07/23 [facility] PRO PHONE CALL 5-10 MIN [id number] Diagnos is: ICD-10- CM H04.129 Dry eye syndrom e of unspeci fied lacrima l gland<b r/> FADUMO HERNANDEZ ICA K 08/09 [facility] Social History Combined list of available smoking, tobacco, and 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 Social History Type Response Date Comment Sourc e Tobacco smoking status NHIS [facility]-TOBACCO FORMER USER 12/18/2022 [facility] History of tobacco use LA-TOBACCO QUIT 1 5 YRS OR MORE 12/18/2022 [facility] History of tobacco use VA-TOBACCO FORMER USER 11/05/2021 [facility] History of tobacco use VA-TOBACCO QUIT 1 5 YRS OR MORE 07/28/2019 [facility] History of tobacco use VA-TOBACCO FORMER USER 12/10/2018 [facility] History of tobacco use VA-TOBACCO QUIT 1 5 YRS OR MORE 02/25/2018 [facility] History of tobacco use FORMER TOBACCO US ER 7Y OR GREATER 04/10/2015 [facility] History of tobacco use FORMER TOBACCO US ER 7Y OR GREATER 04/27/2014 [facility] History of tobacco use FORMER TOBACCO US ER 7Y OR GREATER 06/18/2006 [facility] Plan of Care List of future care activities from Department [facility] facilities. Additional future care activities may be listed in the Assessment and Plan section. Date/Time Care Activity Care Activity Detail Facili ty 10/15/2023 AMBULATORY - SURGERY AMBULATORY - SURGERY [facility] Advance Directives List of completed, amended, or rescinded Advance Directives on record at Department 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 An actual copy of the Directive is not included. Date Advance Directive Provider Source 05/23/2003 ADVANCE DIRECTIVE [facility]
--- OUTSIDE RECORDS SUMMARY | 2023-10-05 22:57 | XMS_ITS | Clinical Summary ---
Author Name Unknown Organization [facility] Facility Address [address] [place] [id number] Care Team Providers Care Felled Seam Operator Chainstitch Name Role Phone Unavailable Primary Care Provider [...]
--- OUTSIDE RECORDS SUMMARY | 2023-10-05 22:57 | XMS_ITS | Clinical Summary ---
Author Name Unknown Organization [facility] Address [place], [place] [address] Care Team Providers Care Substitute Teacher Name Role Phone Anna Marie Oglesby Primary Care Provider [phone] [facility] [place] Unavailable Allergies Active Allergy Reactions Criticality Noted [...] 10 mg by mouth once daily. 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 Overview: Status post [...] Name Administration Dates Next Due COVID-19 vaccine (Barosense-Champion Windows NTech 30mcg/0.3mL) 12YO+ BIVALENT PF, MDV 03/17/2022 COVID-19 vaccine (Pfizer-Bio NTech 30mcg/0.3mL) 12YO+ ALY-SUCROSE PF, MDV 10/10/2021 COVID-19 vaccine (Qt Software NTech 30mcg/0.3mL) PF, MDV 04/04/2021,08/23/2020,08/03/2020 Hep B [...] Comments Blood Pressure 120/58 04/15/2023 4:13 PM DOCK BOSS Pulse 70 04/15/2023 4:13 PM DOCK BOSS Temperature 36.9 ??C (98.4 ??F) 2023 10:49 [...] Description 10/13/2023 1:30 PM CDT Office Visit [facility] [address] [place] [address] Patricia Nichols MD [address] [place] [address] 10/14/2023 3:25 PM CDT Office Visit [facility] [address] [place] [address] Anna Marie Oglesby, DO [address] [place] [address] 11/19/2023 Cardiac Device Check [facility] [phone] 01/19/2024 1:00 PM CDT Cardiac Device Check [facility] [address] [place] [phone] Health Maintenance Due Date Last Done Comments [...] 12/18/2022, 06/29/2012 Medical Devices Implanted Type Area Salon Professional Device Identifier Shelf Expiration Date Model / Serial / Lot Screw Sm Joint 3.5x80mm Os Slf Tppng Bob - [id number] Implanted:Qty: 1 on 04/15/2015 by Rj Bui MD at [facility] Left: Leg [employer] [id number]# / / Screw Sm Joint 4x85mm Axsos Lock Slf Tppng [address] - [id number] Implanted:Qty: 1 on 04/15/2015 by Rj Bui MD at [facility] Left: Leg [employer] [id number]# / / Screw Sm Joint 3.5x75mm Os Slf Tppng Bob - [id number] Implanted:Qty: 1 on 04/15/2015 by Rj Bui MD at [facility] Left: Leg [employer] [id number]# / / Screw Sm Joint 3.5x85mm Os Slf Tppng Bob - [id number] Implanted:Qty: 1 on 04/15/2015 by Rj Bui MD at [facility] Left: Leg [employer] [id number]# / / Plate Tib Lt 10 Hole Axsos Prox Lateral - [id number] Implanted:Qty: 1 on 04/15/2015 by Rj Bui MD at [facility] Left: Leg [employer] [id number]# / / Screw Sm Joint 3.5x28mm Os Slf Tppng Bob - [id number] Implanted:Qty: 1 on 04/15/2015 by Rj Bui MD at [facility] Left: Leg [employer] [id number]# / / Screw Sm Joint 3.5x30mm Os Slf Tppng Bob - [id number] Implanted:Qty: 1 on 04/15/2015 by Rj Bui MD at [facility] Left: Leg [employer] [id number]# / / Screw Sm Joint 3.5x32mm Os Slf Tppng Bob - [id number] Implanted:Qty: 1 on 04/15/2015 by Rj Bui MD at [facility] Left: Leg [employer] [id number]# / / Screw Sm Joint 4x26mm Axsos Lock Slf Tppng [address] - [id number] Implanted:Qty: 1 on 04/15/2015 by Rj Bui MD at [facility] Left: Leg [employer] [id number]# / / Explanted Type Area Salon Professional Device Identifier Shelf Expiration Date Model / Serial / Lot K-Wire [place] 10pk - [id number] Explanted:Qty: 2 on 04/15/2015 at [facility] Left: Leg [employer] [id number]# / / Advance Directives Documents on File Type Date Recorded 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
--- OUTSIDE RECORDS SUMMARY | 2023-10-05 22:57 | XMS_ITS | Continuity of Care Document ---
Author Name Unknown Organization [facility] Address [address] [address] [place] [address] Phone Care Team Providers Care Brush Hand Name Role Phone Unavailable Unavailable Unavailable Advance Directives Directive Yes / No Effective Date File Name No Information Encounters Encounter Description Practice Location Reason(s) For Visit Diagnoses Date Provider Providers Copied on Encounter [facility], [address] [address], [place], [place], [id number], [place] tel:[phone] [facility] No Information Aug-201 8 No [...]
--- OUTSIDE RECORDS SUMMARY | 2023-10-05 22:58 | XMS_ITS | Continuity of Care Document ---
Author Name Unknown Organization [facility] Address [address] [address] [place] [address] Phone Care Team Providers Care Security System Engineer Name Role Phone Unavailable Unavailable Unavailable Advance Directives Directive Yes / No Effective Date File Name No Information Encounters Encounter Description Practice Location Reason(s) For Visit Diagnoses Date Provider Providers Copied on Encounter [facility], [address] [address], [place], [place], [id number], [place] tel:[phone] [facility] No Information Aug-201 8 [...]
--- OUTSIDE RECORDS SUMMARY | 2023-10-05 22:58 | XMS_ITS | Clinical Summary ---
Author Name Unknown Organization [facility] Address [address] [place] [address] Phone Care Team Providers Care Products Mechanical Design Engineer Name Role Phone None, Nopcp Primary Care [...] Comments Blood Pressure 155/68 07/24/2020 5:30 PM PROSTHETIC MAKEUP DESIGNER Pulse 73 07/24/2020 5:30 PM PROSTHETIC MAKEUP DESIGNER Temperature 36.7 ??C (98 ??F) 07/24/2020 5:15 PM PROSTHETIC MAKEUP DESIGNER Respiratory Rate 20 07/24/2020 5:30 PM PROSTHETIC MAKEUP DESIGNER Oxygen Saturation 98% 07/24/2020 5:30 PM PROSTHETIC MAKEUP DESIGNER Inhaled Oxygen Concentration - - Weight 102 kg (224 lb) 07/24/2020 8:00 AM PROSTHETIC MAKEUP DESIGNER Height 182.9 cm (6') 07/24/2020 8:00 AM PROSTHETIC MAKEUP DESIGNER Body Mass Index 30.38 07/24/2020 8:00 AM PROSTHETIC MAKEUP DESIGNER Plan of Treatment Not on file Care Teams Products Mechanical Design Engineer Relationship Specialty Start Date End Date None, MD Nathaniel PCP - General 07/24/20
--- NOTE | 2023-10-05 23:12 | PC.NURSE ---
2250 Pt arrives via PVT car=
--- NOTE | 2023-10-05 23:13 | PC.NURSE ---
2250 Pt arrived via PVT car via Arnie their neighbor. Pt transferred self from car to w/c without much diff. Arrives with overnight bag. Pt pleasant and cooperative. I had dialysis today and that takes a lot out of me, I have been on on it for 5 years.. Noted dialysis shunt left arm. Noted to have special clothing with zipper on that arm. 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 We just got back from [place]-we have a home there. Pt stated his was here and could he see her. RE
--- NOTE | 2023-10-05 23:22 | PC.NURSE ---
addendum- pt was told and will need reinforcement that he may not visit her as she is now a pt and we have great nurses here to take care of him.
[2023-10-05 23:33] VITALS: BP 101/57; PULSE 75; RESP 18; TEMP 36.9; O2SAT 96; O2SAT 97
--- NOTE | 2023-10-05 23:44 | P.IMHP_ITS ---
Hospitalist- H&P: HPI History of Present Illness Time Seen by Provider: 23:25 Date Seen: 10/05/23 Chief complaint: Weakness Narrative: Korey Mackay is a 83 year old male with an extensive past medical history that includes end-stage renal disease for which he is on dialysis, asbestosis, coronary artery disease for which he is status post 4 vessel CABG in 2006, and diabetes mellitus type 2 who is normally cared for by his however she is admitted to the hospital for pulmonary embolism and is unable to care for him. They have no family who live in the area. There was a neighbor who was able to stay with Korey for a little bit, but could not stay overnight because that neighbor works at the long-term and is due to be in for the security shift manager. Korey has no complaints other than he would like to see his , but understands that she is in the hospital and it will not be possible for them to see each other while she is sick in the hospital. He had dialysis today which usually makes him tired, and he fell asleep shortly after I saw him. Review of Systems Status of ROS: Reports: 10 or more systems reviewed and unremarkable except as noted in History and below [facility] Medical History (Updated 10/06/23 @ 00:15 by Gabby Moseley MD) Coronary artery disease ?I25.10 - Atherosclerotic heart disease of [place] coronary artery without angina pectoris (ICD-10) Recurrent UTI ?N39.0 - Urinary tract infection, site not specified (ICD-10) Secondary hyperparathyroidism (of renal origin) ?N25.81 - Secondary hyperparathyroidism of renal origin (ICD-10) Pneumonia due to COVID-19 virus ?U07.1 - COVID-19 (ICD-10) ?J12.82 - Pneumonia due to coronavirus disease 2019 (ICD-10) Severe obesity ?E66.01 - Morbid (severe) obesity due to excess calories (ICD-10) Mobitz type 1 second degree AV block ?I44.1 - Atrioventricular block, second degree (ICD-10) Calculus of gallbladder without cholecystitis ?K80.20 - Calculus of gallbladder without cholecystitis without obstruction (ICD-10) Anemia of chronic renal failure ?N18.9 - Chronic kidney disease, unspecified (ICD-10) ?D63.1 - Anemia in chronic kidney disease (ICD-10) Allergic rhinitis ?J30.9 - Allergic rhinitis, unspecified (ICD-10) DVT (deep venous thrombosis) ?I82.409 - Acute embolism and thrombosis of unspecified deep veins of unspecified lower extremity (ICD-10) Hypothyroidism ?E03.9 - Hypothyroidism, unspecified (ICD-10) Pulmonary emphysema ?J43.9 - Emphysema, unspecified (ICD-10) Obstructive sleep apnea ?G47.33 - Obstructive sleep apnea (adult) (pediatric) (ICD-10) Colon polyp ?K63.5 - Polyp of colon (ICD-10) Detached retina, left ?H33.22 - Serous retinal detachment, left eye (ICD-10) GERD with esophagitis ?K21.00 - Gastro-esophageal reflux disease with esophagitis, without bleeding (ICD-10) Hypertension ?I10 - Essential (primary) hypertension (ICD-10) Diabetic foot ulcer ?E11.621 - Type 2 diabetes mellitus with foot ulcer (ICD-10) ?L97.509 - Non-pressure chronic ulcer of other part of unspecified foot with unspecified severity (ICD-10) Charcot foot due to diabetes mellitus ?E11.610 - Type 2 diabetes mellitus with diabetic neuropathic arthropathy (ICD-10) Pulmonary asbestosis ?J61 - Pneumoconiosis due to asbestos and other mineral fibers (ICD-10) Myocardial infarction ?I21.9 - Acute myocardial infarction, unspecified (ICD-10) Hypercholesterolemia ?E78.00 - Pure hypercholesterolemia, unspecified (ICD-10) End stage renal disease on dialysis ?N18.6 - End stage renal disease (ICD-10) ?Z99.2 - Dependence on renal dialysis (ICD-10) DM (diabetes mellitus), type 2 ?E11.9 - Type 2 diabetes mellitus without complications (ICD-10) COPD (chronic obstructive pulmonary disease) ?J44.9 - Chronic obstructive pulmonary disease, unspecified (ICD-10) Surgical History (Updated 10/06/23 @ 00:01 by Gabby Moseley MD) S/P ORIF (open reduction internal fixation) fracture ?Z98.890 - Other specified postprocedural states (ICD-10) ?Z87.81 - Personal history of (healed) traumatic fracture (ICD-10) S/P CABG x 4 ?Z95.1 - Presence of aortocoronary bypass graft (ICD-10) Family History (Updated 10/06/23 @ 00:02 by Gabby Moseley MD) Brother Leukemia Mother Oral cancer Father Alzheimers disease Social History (Updated 10/06/23 @ 00:03 by Gabby Moseley MD) Narrative: 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 Smoking Status: Former smoker Do you use any of these nicotine containing products: None Second hand tobacco smoke exposure: No How often do you have a drink containing alcohol: 2-4 times a month How often do you have six or more drinks on one occasion: Never AUDIT-C Alcohol total score: 2 Non-prescribed substance use: denies use service: No Meds Home Medications and Allergies Home Medications Medication Instructions Recorded Confirmed Type levothyroxine 12/12/22 History pravastatin 12/12/22 History Restasis 12/27/22 History acetaminophen 650 mg 650 mg PO Q8H PRN 12/27/22 12/27/22 History tablet,extended release (Tylenol Arthritis Pain) albuteral 12/27/22 History aspirin 81 mg capsule 81 mg PO DAILY 12/27/22 12/27/22 History coenzyme Q10 100 mg capsule (Co 100 mg PO DAILY 12/27/22 12/27/22 History Q-10) fluticasone 100 mcg-salmeterol 50 1 inh inhalation BID 12/27/22 12/27/22 History mcg/dose blistr powdr for inhalation (Wixela Inhub) fluticasone furoate 50 inhalation 12/27/22 History mcg/actuation blister powder for inhalation guaifenesin 100 mg/5 mL oral liquid 100 mg PO Q6H coughing 12/27/22 12/27/22 History insulin aspart U-100 100 unit/mL 18 unit subcut QPM 12/27/22 12/27/22 History (3 mL) subcutaneous pen (Novolog FlexPen U-100 Insulin aspart) loratadine 10 mg tablet (Claritin) 10 mg PO DAILY 12/27/22 12/27/22 History montelukast 10 mg tablet 10 mg PO DAILY 12/27/22 12/27/22 History (Singulair) nitroglycerin 0.4 mg sublingual 0.4 mg sublingual Q5-15M PRN 12/27/22 12/27/22 History tablet (Nitrostat) pantoprozole 12/27/22 History sennosides 8.6 mg capsule (senna) 8.6 mg PO DAILY 12/27/22 12/27/22 History tiotropium bromide 2.5 1 inh inhalation DAILY 12/27/22 12/27/22 History mcg/actuation mist for inhalation (Spiriva Respimat) Allergies Allergy/AdvReac Type Severity Reaction Status Date / Time lisinopril Allergy Verified 12/27/22 15:54 metoclopramide [From Reglan] Allergy Verified 12/27/22 15:54 omeprazole Allergy Verified 12/27/22 15:54 hydrocodone/acetaminophen Allergy Uncoded 12/27/22 15:54 lipitor Allergy Uncoded 12/27/22 15:54 Exam Narrative: Exam Narrative: Weight 207.5 lb, T 98.4? F, blood pressure 101/57, heart rate 75 beats per min, respirations 18, O2 sats 97% on room air. General: No acute distress. Awake alert oriented x3. HEENT: Normocephalic atraumatic, pupils equally round and reactive to light and accommodation. Oropharynx clear. Mucous membranes are moist. No cervical lymphadenopathy, thyromegaly or carotid bruits. No JVD. Cardiovascular: Regular rate and rhythm. No murmurs, gallops, or rubs. Chest: No increased work of breathing. Clear to auscultation bilaterally. No crackles or wheezes. Abdomen: Bowel sounds present. Soft, nondistended, nontender. No hepatosplenomegaly or masses. Extremities: No edema, no cyanosis or clubbing. Skin: No jaundice, no pallor, no rashes. Assessment and Plan Assessment and plan (1) Hospital admission due to lack of caregiver: Problem comment: Stable with no acute medical concerns. He will need dialysis on Thursday. I will consult SW as patient may need placement if will be unable to discharge in a timely manner or if she needs transfer to tertiary center. Status: Acute (2) End stage renal disease on dialysis: Status: Chronic (3) DM (diabetes mellitus), type 2: Status: Chronic (4) Obstructive sleep apnea: Status: Chronic (5) Coronary artery disease: Status: Chronic Plan Will order his usual home medications and renal diet.
--- NOTE | 2023-10-06 06:39 | PC.NURSE ---
pleasant and cooperative. CPAP on at HS. Left arm fistula, bruit & thrill present.
[2023-10-06 07:38] VITALS: BP 135/66; PULSE 70; RESP 16; TEMP 36.3; O2SAT 97
[2023-10-06] MEDS: COENZYME Q10 100 MG CAPSULE PO (08:54)
[2023-10-06] MEDS: ASPIRIN 81 MG TABLET EC PO (08:54)
[2023-10-06] MEDS: LEVOTHYROXINE 75 MCG TABLET PO (08:54)
[2023-10-06] MEDS: LEVOTHYROXINE 100 MCG TABLET PO (08:54)
[2023-10-06] MEDS: LORATADINE 10 MG TABLET PO (08:55)
[2023-10-06] MEDS: INSULIN ASPART 100 UNIT/ML SUBCUT ×2 (09:04→17:33)
--- NOTE | 2023-10-06 13:23 | P.DS_ITS ---
DS: Providers Provider Date Seen: 10/06/23 Date of admission: 10/05/23 22:08 Primary care physician: Anna Marie Olgesby DO Admitting Clinician: Gabby Moseley MD Attending Physician on discharge: Asa Elam MD Date of Discharge: 10/06/23 DS: Diagnosis Discharge Diagnosis (1) Hospital admission due to lack of caregiver: Status: Acute Problem details: Stable with no acute medical concerns. He will need dialysis on Thursday. I will consult SW as patient may need placement if will be unable to discharge in a timely manner or if she needs transfer to tertiary center. (2) End stage renal disease on dialysis: Status: Chronic Problem details: Has dialysis Thursday (3) Obstructive sleep apnea: Status: Chronic Problem details: home CPAP (4) DM (diabetes mellitus), type 2: Status: Chronic (5) Coronary artery disease: Status: Chronic Problem details: no current symptoms (6) Frailty syndrome in geriatric patient: Status: Acute Problem details: Patient requires assistance of his for ADLs. DS: Summary Hospital Course Hospital Course: Korey Mackay is a 83 year old male with an extensive past medical history that includes end-stage renal disease for which he is on dialysis, asbestosis, coronary artery disease for which he is status post 4 vessel CABG in 2006, and diabetes mellitus type 2 who is normally cared for by his however she is admitted to the hospital for pulmonary embolism and is unable to care for him. He requires her assistance for all ADLs. They have no family who live in the area. There was a neighbor who was able to stay with Korey for a little bit, but could not stay overnight because that neighbor works at the senior living and is due to be in for the food assembler. Korey has no complaints other than he would like to see his , but understands that she is in the hospital and it will not be possible for them to see each other while she is sick in the hospital. He had dialysis today which usually makes him tired, and he fell asleep shortly after I saw him. Today he has been sleepy but otherwise having no concerns. Status at Discharge Overall status at discharge: patient is back to baseline Time Spent with Patient Time attestation: Total time spent providing and/or coordinating discharge services: Exam Narrative: Exam Narrative: He is sleepy but arouses easily. He has no concerns today. He is oriented to his circumstances. Const: Vital Signs, click to edit/add: Vital Signs - 24 hr 10/05/23 23:33 10/05/23 23:33 10/06/23 07:38 Temperature 98.4 F Pulse Rate [Pulse Oximeter] 75 70 Respiratory Rate 18 16 Blood Pressure [Ri ght Arm] 101/57 L Pulse Oximetry 96 97 Oxygen Delivery Me thod Room Air Room Air 10/06/23 07:38 10/06/23 07:38 Temperature 97.3 F L Pulse Rate [Pulse Oximeter] 70 Respiratory Rate 16 16 Blood Pressure [Ri ght Arm] 135/66 Pulse Oximetry 97 97 Oxygen Delivery Me thod Room Air CPAP Documenting provider has reviewed patient's vital signs: yes Discharge Plan Discharge Disposition: Home w/ Parent or Adult Date of Admission: 10/05/23 22:08 Attending Provider on Discharge: Checo Elam Primary Care Provider: Anna Marie Oglesby Anticipated Discharge Date/Time: 10/06/23 17:00 Discharge Medications: Continued insulin aspart U-100 [Novolog FlexPen U-100 Insulin] 100 unit/mL (3 mL) insulin pen 5 unit subcut TIDWM Spiriva Respimat 2.5 mcg/actuation mist 1 inh inhalation DAILY guaifenesin 100 mg/5 mL liquid 100 mg PO Q8H PRN (Reason: coughing) montelukast [Singulair] 10 mg tablet 10 mg PO DAILY nitroglycerin [Nitrostat] 0.4 mg tablet, sublingual 0.4 mg sublingual Q5M PRN Rx Instructions: do not exceed 3 doses per episode aspirin 81 mg capsule 81 mg PO DAILY loratadine [Claritin] 10 mg tablet 10 mg PO DAILY coenzyme Q10 [Co Q-10] 100 mg capsule 100 mg PO DAILY senna 8.6 mg capsule 17.2 mg PO QID PRN acetaminophen [Tylenol Arthritis Pain] 650 mg tablet extended release 650 mg PO Q8H PRN insulin glargine [Lantus Solostar U-100 Insulin] 100 unit/mL (3 mL) insulin pen 18 unit subcut DAILY@1800 albuterol sulfate [Ventolin HFA] 90 mcg/actuation HFA aerosol inhaler 1 - 2 inh inhalation Q6H PRN fluticasone propion-salmeterol [Wixela Inhub] 250-50 mcg/dose blister with device 1 inh inhalation BID pantoprazole 40 mg tablet,delayed release (DR/EC) 40 mg PO DAILY pravastatin 80 mg tablet 80 mg PO DAILY sevelamer carbonate 800 mg tablet 800 mg PO TID PRN Rx Instructions: must administer with a meal/food fluticasone propionate [24 Hour Allergy Relief] 50 mcg/actuation spray,suspension 1 spray intranasal DAILY PRN Rx Instructions: administer into each nostril cyclosporine [Restasis] 0.05 % dropperette 1 drp ophthalmic (eye) Q12H Dialyvite 3-558-500-50 iy-hx-acb-mg tablet 1 tab PO DAILY Rx Instructions: administer with a meal levothyroxine 200 mcg tablet 200 mcg PO DAILY acihr-nw-3-bfm-osy-teafxrf-ast [MegaRed [place]-3 Krill Oil] 1,000-230-60 mg capsule 1 cap PO DAILY cholecalciferol (vitamin D3) 50 mcg (2,000 unit) capsule 50 mcg PO DAILY vitamin E 268 mg (400 unit) capsule 268 mg PO DAILY Discharge Orders: Discharge Order (Routine); Ordered 10/06/23 Ordered By: Checo Elam Activity Level: Activity as Tolerated and Up with assist Discharge Diet: Diabetic Follow Up Appointments: Anna Marie Oglesby DO [Primary Care Provider] - [facility]
[2023-10-06 15:30] VITALS: BP 129/56; PULSE 74; RESP 16; TEMP 36.6; O2SAT 98
[2023-10-06] MEDS: ALBUTEROL INHALER 2 PUFF IH (16:56)
[2023-10-06] MEDS: BENZOCAINE/MENTHOL 1 EACH LOZENGE MUCOUS MEM (17:23)
--- NOTE | 2023-10-06 18:46 | PC.NURSE ---
Discharge: Pt cooperative with cares. Pt vitally stable, lung sounds clear, BS active. NO IV. Pt reported 6-7/10 pain in BLE, this is chronic pain. No pain medication given. Pt tolerated regular diet well, blood sugars: 113, 91, 144. Pt 1 assist walker. Pt incont. of bowel x2. Sat in chair or side of bed for meals. Pt signed belongings and discharge form. No further questions asked. Pt left by wheelchair to home with at 1817.
== END 2023-10-06 18:17 | disposition home or self-care (01) ==
PROVIDERS: Admitting Provider Family Medicine; PCP Family Medicine; Visit Provider Family Medicine
DX: Z74.2 Need for assistance at home and no other household member able to render care (principal); E11.22 Type 2 diabetes mellitus with diabetic chronic kidney disease; Z79.4 Long term (current) use of insulin; N18.6 End stage renal disease; Z99.2 Dependence on renal dialysis; G47.33 Obstructive sleep apnea (adult) (pediatric); I25.10 Atherosclerotic heart disease of native coronary artery without angina pectoris; R54 Age-related physical debility
CPT/HCPCS: 82962; A9270; G0378; G0379

== ENCOUNTER 2023-10-13 19:51 | Emergency (ER) | payer MEDICARE, OTHER, SELFPAY ==
[2023-10-13 19:54] VITALS: BP 109/57; PULSE 75; RESP 16; TEMP 36.4; O2SAT 95
--- NOTE | 2023-10-13 20:23 | ED.GENADULT ---
HPI - General Adult General Chief complaint: Post Op Complication Stated complaint: Bleeding from surgical wound today Time Seen by Provider: 10/13/23 20:07 History of Present Illness HPI narrative: 83 year white male head is basis cyst type removal with Dr. Moore today he has had these multiple times. Apparently things went well, noted some bleeding in the brought him to the ER. He transiently felt a little lightheaded but he feels fine now and he simply wants is covered and wants to go home he wants to eat. He is a dialysis patient. He is feeling otherwise well. His vital signs look reassuring. Related Data Home Medications Medication Instructions Recorded Confirmed acetaminophen 650 mg 650 mg PO Q8H PRN 12/27/22 10/06/23 tablet,extended release (Tylenol Arthritis Pain) aspirin 81 mg capsule 81 mg PO DAILY 12/27/22 10/06/23 coenzyme Q10 100 mg capsule (Co 100 mg PO DAILY 12/27/22 10/06/23 Q-10) guaifenesin 100 mg/5 mL oral liquid 100 mg PO Q8H PRN coughing 12/27/22 10/06/23 insulin aspart U-100 100 unit/mL 5 unit subcut TIDWM 12/27/22 10/06/23 (3 mL) subcutaneous pen (Novolog FlexPen U-100 Insulin aspart) loratadine 10 mg tablet (Claritin) 10 mg PO DAILY 12/27/22 10/06/23 montelukast 10 mg tablet 10 mg PO DAILY 12/27/22 10/06/23 (Singulair) nitroglycerin 0.4 mg sublingual 0.4 mg sublingual Q5M PRN 12/27/22 10/06/23 tablet (Nitrostat) sennosides 8.6 mg capsule (senna) 17.2 mg PO QID PRN 12/27/22 10/06/23 tiotropium bromide 2.5 1 inh inhalation DAILY 12/27/22 10/06/23 mcg/actuation mist for inhalation (Spiriva Respimat) B complex 11-folic acid 1 mg-C 100 1 tab PO DAILY 10/06/23 10/06/23 mg-biotin 300 mcg-zinc 50 mg tablet (Dialyvite) albuterol sulfate 90 mcg/actuation 1 - 2 inh inhalation Q6H PRN 10/06/23 10/06/23 aerosol inhaler (Ventolin HFA) cholecalciferol (vitamin D3) 50 50 mcg PO DAILY 10/06/23 10/06/23 mcg (2,000 unit) capsule cyclosporine 0.05 % eye drops in a 1 drp ophthalmic (eye) Q12H 10/06/23 10/06/23 dropperette (Restasis) fluticasone 250 mcg-salmeterol 50 1 inh inhalation BID 10/06/23 10/06/23 mcg/dose blistr powdr for inhalation (Wixela Inhub) fluticasone propionate 50 1 spray intranasal DAILY PRN 10/06/23 10/06/23 mcg/actuation nasal spray,suspension (24 Hour Allergy Relief) insulin glargine 100 unit/mL (3 18 unit subcut DAILY@1800 10/06/23 10/06/23 mL) subcutaneous pen (Lantus Solostar U-100 Insulin) krill 1,000 mg-omega-3 230 mg-dha 1 cap PO DAILY 10/06/23 10/06/23 60 wb-daf-byrxevdfo-astaxan capsule (MegaRed Hettinger-3 Krill Oil) levothyroxine 200 mcg tablet 200 mcg PO DAILY 10/06/23 10/06/23 pantoprazole 40 mg tablet,delayed 40 mg PO DAILY 10/06/23 10/06/23 release pravastatin 80 mg tablet 80 mg PO DAILY 10/06/23 10/06/23 sevelamer carbonate 800 mg tablet 800 mg PO TID PRN 10/06/23 10/06/23 vitamin E 268 mg (400 unit) capsule 268 mg PO DAILY 10/06/23 10/06/23 Allergies Allergy/AdvReac Type Severity Reaction Status Date / Time atorvastatin [From Lipitor] Allergy Verified 10/06/23 07:34 hydrocodone Allergy Verified 10/06/23 07:34 lisinopril Allergy Verified 12/27/22 15:54 metoclopramide [From Reglan] Allergy Verified 12/27/22 15:54 omeprazole Allergy Verified 12/27/22 15:54 Review of Systems Status of ROS: Reports: 6 or more systems reviewed and unremarkable except as noted in History and below [facility] Medical History Frailty syndrome in geriatric patient ?R54 - Age-related physical debility (ICD-10) Coronary artery disease ?I25.10 - Atherosclerotic heart disease of [place] coronary artery without angina pectoris (ICD-10) Recurrent UTI ?N39.0 - Urinary tract infection, site not specified (ICD-10) Secondary hyperparathyroidism (of renal origin) ?N25.81 - Secondary hyperparathyroidism of renal origin (ICD-10) Pneumonia due to COVID-19 virus ?U07.1 - COVID-19 (ICD-10) ?J12.82 - Pneumonia due to coronavirus disease 2019 (ICD-10) Severe obesity ?E66.01 - Morbid (severe) obesity due to excess calories (ICD-10) Mobitz type 1 second degree AV block ?I44.1 - Atrioventricular block, second degree (ICD-10) Calculus of gallbladder without cholecystitis ?K80.20 - Calculus of gallbladder without cholecystitis without obstruction (ICD-10) Anemia of chronic renal failure ?N18.9 - Chronic kidney disease, unspecified (ICD-10) ?D63.1 - Anemia in chronic kidney disease (ICD-10) Allergic rhinitis ?J30.9 - Allergic rhinitis, unspecified (ICD-10) DVT (deep venous thrombosis) ?I82.409 - Acute embolism and thrombosis of unspecified deep veins of unspecified lower extremity (ICD-10) Hypothyroidism ?E03.9 - Hypothyroidism, unspecified (ICD-10) Pulmonary emphysema ?J43.9 - Emphysema, unspecified (ICD-10) Obstructive sleep apnea ?G47.33 - Obstructive sleep apnea (adult) (pediatric) (ICD-10) Colon polyp ?K63.5 - Polyp of colon (ICD-10) Detached retina, left ?H33.22 - Serous retinal detachment, left eye (ICD-10) GERD with esophagitis ?K21.00 - Gastro-esophageal reflux disease with esophagitis, without bleeding (ICD-10) Hypertension ?I10 - Essential (primary) hypertension (ICD-10) Diabetic foot ulcer ?E11.621 - Type 2 diabetes mellitus with foot ulcer (ICD-10) ?L97.509 - Non-pressure chronic ulcer of other part of unspecified foot with unspecified severity (ICD-10) Charcot foot due to diabetes mellitus ?E11.610 - Type 2 diabetes mellitus with diabetic neuropathic arthropathy (ICD-10) Pulmonary asbestosis ?J61 - Pneumoconiosis due to asbestos and other mineral fibers (ICD-10) Myocardial infarction ?I21.9 - Acute myocardial infarction, unspecified (ICD-10) Hypercholesterolemia ?E78.00 - Pure hypercholesterolemia, unspecified (ICD-10) End stage renal disease on dialysis ?N18.6 - End stage renal disease (ICD-10) ?Z99.2 - Dependence on renal dialysis (ICD-10) DM (diabetes mellitus), type 2 ?E11.9 - Type 2 diabetes mellitus without complications (ICD-10) COPD (chronic obstructive pulmonary disease) ?J44.9 - Chronic obstructive pulmonary disease, unspecified (ICD-10) Surgical History S/P ORIF (open reduction internal fixation) fracture ?Z98.890 - Other specified postprocedural states (ICD-10) ?Z87.81 - Personal history of (healed) traumatic fracture (ICD-10) S/P CABG x 4 ?Z95.1 - Presence of aortocoronary bypass graft (ICD-10) Family History Brother Leukemia Mother Oral cancer Father Alzheimers disease Social History Narrative: 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 What is your current living situation?: I presently have a place to live Problems where you live: no known problems Problems where you live details: n/a In the past 12 months, utilities in danger of being shut off: no In past 12 months, lack of transportation kept you from medical appts, meetings, work, or getting things needed for daily living: no In the past 12 mos, have been you worried that your food would run out before you had money to buy more?: never true In the past 12 mos, the food you bought just didn't last and you didn't have money to buy more?: never true Smoking Status: Former smoker Do you use any of these nicotine containing products: None Second hand tobacco smoke exposure: No How often do you have a drink containing alcohol: 2-4 times a month How often do you have six or more drinks on one occasion: Never AUDIT-C Alcohol total score: 2 Non-prescribed substance use: denies use How often does anyone, including family, friends and others, physically hurt you: never How often does anyone, including family, friends and others, insult or talk down to you: never How often does anyone, including family, friends and others, threaten you with harm: never How often does anyone, including family, friends and others, scream or curse at you: never service: No Exam Narrative: Exam Narrative: Objective patient's vital signs look within normal limits, he is afebrile, vital signs show a blood pressure 109/57 He is alert orient x3, no cyanosis no distress, states he feels well His left inner buttock area near the scrotum shows a last shows a surgical incision that is got iodoform packing. This tape and gauze was removed and there was no further bleeding noted. We will pack some 4x4s there and cover with paper tape again and I think that would be adequate at this time. Follow-up with surgical follow-up as planned. His should change dressings as she was instructed. Const: Vital Signs, click to edit/add: Vital Signs - 24 hr 10/13/23 19:54 Temperature 97.6 F Pulse Rate [Pulse Oximeter] 75 Respiratory Rate 16 Blood Pressure [Ri ght Upper Arm] 109/57 L Pulse Oximetry 95 Oxygen Delivery Me thod Room Air Course Vital Signs Vital signs: Initial Vital Signs Temperature 97.6 F 10/13/23 19:54 Temperature Source Temporal Artery Scan 10/13/23 19:54 Pulse Rate 75 10/13/23 19:54 Respiratory Rate 16 10/13/23 19:54 Blood Pressure 109/57 L 10/13/23 19:54 Blood Pressure Mean 74 10/13/23 19:54 Blood Pressure Position Sitting 10/13/23 19:54 Pulse Oximetry 95 10/13/23 19:54 Oxygen Delivery Method Room Air 10/13/23 19:54 Vital Signs Temperature 97.6 F 10/13/23 19:54 Pulse Rate 75 10/13/23 19:54 Respiratory Rate 16 10/13/23 19:54 Blood Pressure 109/57 L 10/13/23 19:54 Pulse Oximetry 95 10/13/23 19:54 Oxygen Delivery Method Room Air 10/13/23 19:54 Temperature 97.6 F 10/13/23 19:54 Pulse Rate 75 10/13/23 19:54 Respiratory Rate 16 10/13/23 19:54 Blood Pressure 109/57 L 10/13/23 19:54 Pulse Oximetry 95 10/13/23 19:54 Oxygen Delivery Method Room Air 10/13/23 19:54 Medical Decision Making MDM Narrative Medical decision making narrative: [age] year white male with a bleeding episode from a sebaceous type cyst or cyst removed in his perineal area. Appears to be packed well and not bleeding now. I think we can simply allow him to go home with the dressing that we placed and change as per instructions from Dr. Moore. Return to the ED as needed. Discharge Plan Discharge Clinical Impression: Postoperative hemorrhage Patient Disposition: Home w/ Parent or Adult Condition: Improved Additional Instructions: Keep covered until least tomorrow, change dressings as per Dr. Moore starting at that point, return if bleeding or other concerns. Or other symptoms the patient might develop. Recommend light activity Activity Level: Light activity Discharge Diet: Regular Prescriptions: No Action insulin aspart U-100 [Novolog FlexPen U-100 Insulin] 100 unit/mL (3 mL) insulin pen 5 unit subcut TIDWM Spiriva Respimat 2.5 mcg/actuation mist 1 inh inhalation DAILY guaifenesin 100 mg/5 mL liquid 100 mg PO Q8H PRN (Reason: coughing) montelukast [Singulair] 10 mg tablet 10 mg PO DAILY nitroglycerin [Nitrostat] 0.4 mg tablet, sublingual 0.4 mg sublingual Q5M PRN Rx Instructions: do not exceed 3 doses per episode aspirin 81 mg capsule 81 mg PO DAILY loratadine [Claritin] 10 mg tablet 10 mg PO DAILY coenzyme Q10 [Co Q-10] 100 mg capsule 100 mg PO DAILY senna 8.6 mg capsule 17.2 mg PO QID PRN acetaminophen [Tylenol Arthritis Pain] 650 mg tablet extended release 650 mg PO Q8H PRN insulin glargine [Lantus Solostar U-100 Insulin] 100 unit/mL (3 mL) insulin pen 18 unit subcut DAILY@1800 albuterol sulfate [Ventolin HFA] 90 mcg/actuation HFA aerosol inhaler 1 - 2 inh inhalation Q6H PRN fluticasone propion-salmeterol [Wixela Inhub] 250-50 mcg/dose blister with device 1 inh inhalation BID pantoprazole 40 mg tablet,delayed release (DR/EC) 40 mg PO DAILY pravastatin 80 mg tablet 80 mg PO DAILY sevelamer carbonate 800 mg tablet 800 mg PO TID PRN Rx Instructions: must administer with a meal/food fluticasone propionate [24 Hour Allergy Relief] 50 mcg/actuation spray,suspension 1 spray intranasal DAILY PRN Rx Instructions: administer into each nostril cyclosporine [Restasis] 0.05 % dropperette 1 drp ophthalmic (eye) Q12H Dialyvite [id number] vp-fe-pbn-mg tablet 1 tab PO DAILY Rx Instructions: administer with a meal levothyroxine 200 mcg tablet 200 mcg PO DAILY smkbg-uc-7-ocd-cia-tnyxpet-ast [MegaRed Hettinger-3 Krill Oil] 1,000-230-60 mg capsule 1 cap PO DAILY cholecalciferol (vitamin D3) 50 mcg (2,000 unit) capsule 50 mcg PO DAILY vitamin E 268 mg (400 unit) capsule 268 mg PO DAILY Follow Up/Referrals: Anna Marie Oglesby DO [Primary Care Provider] - Stand Alone Forms: [facility]
--- OUTSIDE RECORDS SUMMARY | 2023-10-13 20:35 | XMS_ITS | Clinical Summary ---
Author Name Unknown Organization [facility] Facility Address [address] [place] [address] Care Team Providers Care Plant Maintenance Worker Name Role Phone Unavailable Primary Care Provider Unavailabl e Encounters Date Type Department Care Team Description 10/09/2023 Orders Only [facility] [address] [place] [phone] Darren Youssef MD 10/07/2023 Orders Only [facility] [address] [facility] [address] [place] [phone] Darren Youssef MD 10/05/2023 Orders Only [facility] [address] [facility] [address] [place] [phone] Darren Youssef MD from Last 3 Months Social History [...] 2024 02/18/2016, 04/11/2015, 03/20/2008, Additional history exists Procedures Procedure Name Priority Date/Time Associated Diagnosis Comments [facility] RESULTS Routine 10/09/2023 HD KINETICS Routine 10/09/2023 POST CHEMISTRY Routine 10/09/2023 CHEMISTRY Routine 10/09/2023 HEMATOLOGY Routine 10/09/2023 CHEMISTRY Routine 10/09/2023 TRACE ELEMENTS Routine 10/07/2023 [facility] RESULTS Routine 10/05/2023 HD KINETICS Routine 10/05/2023 SPECIAL CHEMISTRY Routine 10/05/2023 CHEMISTRY Routine 10/05/2023 TRACE ELEMENTS Routine 10/05/2023 HEMATOLOGY Routine 10/05/2023 IMMUNO CHEMISTRY Routine 10/05/2023 CHEMISTRY Routine 10/05/2023 POST CHEMISTRY Routine 10/05/2023 from Last 3 Months Results * HD KINETICS (10/09/2023) Only the most recent of2 resultswithin the time period is included. % Urea Reduction 74 65 - 80 % [facility] 10/09/2023 10/10/2023 4:3 3 AM CDT Narrative Resulting Agency Comment Specimen source: Plasma Darren Youssef MD LAB BLOOD ORDERABLES [facility] See order comments or contact performing lab Unknown, [place] * POST CHEMISTRY (10/09/2023) Only the most recent of2 resultswithin the time period is included. BUN Post Dialysis 11 6 - 19 mg/dL [facility] 10/09/2023 10/10/2023 4:3 3 AM CDT Narrative [facility] - 10/10/2023 Unless otherwise specified, test(s) performed at: [facility], [address] [place] [address], [place] [address] PRINTING TABLE WORKER: Rojas Kirkland M.D., Ph.D For any questions, please call customer service at FREQUENCY:MONTHLY Resulting Agency Comment Specimen source: Plasma Darren Youssef MD LAB BLOOD ORDERABLES [facility] See order comments or contact performing lab Unknown, [place] * (ABNORMAL) HEMATOLOGY (10/09/2023) Only the most recent of2 resultswithin the time period is included. Pathologist [facility] Neutrophils 66.0 40.0 - 75.0 % [facility] Lymphocytes Relative 17.0(L) 19.0 - 48.0 % [facility] Monocytes 10.7(H) 3.0 - 10.0 % [facility] Eosinophils Relative 2.9 0.0 - 7.0 % [facility] Basophils Relative 0.5 0.0 - 1.5 % [facility] COURTNEY 3.0 0.0 - 4.0 % [facility] WBC 6.75 4.80 - 10.80 1000/mcL [facility] RBC 3.14(L) 4.70 - 6.10 mill/mcL [facility] Hematocrit 31.5(L) 42.0 - 52.0 % [facility] MCV 100 80 - 100 fl [facility] MCH 32.9(H) 27.0 - 31.0 pg [facility] MCHC 32.8 30.0 - 36.0 g/dL [facility] RDW 15.0(H) 11.5 - 14.5 % [facility] Hemoglobin 10.4(L) 14.0 - 18.0 g/dL [facility] Hemoglobin x 3 31.2(L) 42.0 - 54.0 % [facility] Platelets 170 130 - 400 1000/mcL [facility] 10/09/2023 10/10/2023 4:4 6 AM CDT Narrative [facility] - 10/10/2023 Unless otherwise specified, test(s) performed at: [facility], [address] [place] [address], [place] [address] PRINTING TABLE WORKER: Rojas Kirkland M.D., Ph.D For any questions, please call customer service at FREQUENCY:MONTHLY Resulting Agency Comment Specimen source: Blood Darren Youssef MD LAB BLOOD ORDERABLES [facility] See order comments or contact performing lab Unknown, [place] * (ABNORMAL) [facility] (10/09/2023) Only the most recent of4 resultswithin the time period is included. BUN 43(H) 6 - 19 mg/dL [facility] Creatinine 7.74(H) 0.60 - 1.30 mg/dL [facility] BUN/Creatinine Ratio 5.6(L) 10.0 - 20.0 [facility] Sodium 138 136 - 145 mEq/L [facility] Potassium 3.9 3.5 - 5.1 mEq/L [facility] Chloride 99 96 - 108 mEq/L [facility] Bicarbonate (CO2) 28 20 - 31 mEq/L [facility] Calcium 9.0 8.7 - 10.4 mg/dL [facility] Comment: Please note change in reference range. Corrected Calcium 9.1 8.7 - 10.4 mg/dL [facility] Comment: Corrected Calcium is not equivalent to measured Ionized Calcium. Phosphorus 2.9 2.6 - 4.5 mg/dL [facility] Calcium Phosphorus Product 26 0 - 54 [facility] Calcium Phosporus Product, Cor 26 0 - 54 [facility] Alkaline Phosphatase 105 40 - 129 U/L [facility] Total Protein 7.4 6.0 - 8.5 g/dL [facility] Albumin 3.9 3.5 - 5.2 g/dL [facility] Globulin, Total 3.5 2.0 - 4.0 g/dL [facility] A/G Ratio 1.1 1.0 - 2.0 [facility] Magnesium 1.9 1.6 - 2.6 mg/dL [facility] Ferritin 903(H) 22 - 322 ng/mL [facility] Iron 103 45 - 160 mcg/dL [facility] UIBC 101(L) 155 - 355 mcg/dL [facility] TIBC 204 185 - 515 mcg/dL [facility] Iron Saturation (TSat) 50 20 - 55 % [facility] 10/09/2023 10/10/2023 4:4 0 AM CDT Narrative [facility] - 10/10/2023 Unless otherwise specified, test(s) performed at: [facility], [address] [place] [address], [place] [address] PRINTING TABLE WORKER: Rojas Kirkland M.D., Ph.D For any questions, please call customer service at FREQUENCY:MONTHLY Resulting Agency Comment Specimen source: Serum Darren Youssef MD LAB BLOOD ORDERABLES Performing Organization Address [facility] Co de Phone Number [facility] See order comments or contact performing lab Unknown, [place] * [facility] Results (10/09/2023) Only the most recent of2 resultswithin the time period is included. eKdrt/V 1.39 [facility] eKt/V Gotch 1.39 [facility] eKt/V ([place]) 1.34 Knowledge Center spKt/V (Daugirdas II) 1.56 Knowledge Center nPCR_HD 0.88 Knowledge Center spKt/V Gotch 1.64 [facility] ge Center WSTDKT/V 2.4 [facility] eNPCR 0.82 Knowledge Center PCR 56.22 [facility] Center 10/09/2023 10/09/2023 [place] Ordering Provider LAB BLOOD ORDERABLE S [facility] Contact Performing lab Unknown, [place] * TRACE ELEMENTS (10/07/2023) Only the most recent of2 resultswithin the time period is included. Aluminum <5 0 - 10 mcg/L [facility] Comment: This test was developed and its performance characteristics determined by [facility]. It has not been cleared or approved by the FDA. The laboratory is regulated under CLIA as qualified to perform high complexity testing. This test is used for clinical purposes. It should not be regarded as investigational or for research. 10/07/2023 10/08/2023 7:0 7 PM CDT Narrative [facility] [employer] [facility] - 10/09/2023 Unless otherwise specified, test(s) performed at: [facility], [address] [place] [address], [place] [address] PRINTING TABLE WORKER: Rojas Kirkland M.D., Ph.D For any questions, please call customer service at FREQUENCY:OTHER Resulting Agency Comment Specimen source: Serum Darren Youssef MD LAB BLOOD ORDERABLES Performing Organization Address [place]/[facility] Co de Phone Number [facility] [employer] [employer] See order comments or contact performing lab Unknown, [place] * SPECIAL CHEMISTRY (10/05/2023) [facility] Folate >24.0 ng/mL [facility] Comment: Reference Range: Deficient: ?<3.4 ng/mL Indeterminate: ??3.4-5.4 ng/mL Normal: ? >5.4 ng/mL Vitamin B-12 844 211 - 911 pg/mL [facility] Vitamin D, 25-OH, Total 67.7 30.0 - 100.0 ng/mL [facility] Comment: Please Note: ??Effective June 16, 2021, the methodology for this test has changed to the [employer] ATELLICA method 10/05/2023 10/06/2023 3:5 6 PM CDT Narrative Resulting Agency Comment Specimen source: Serum Darren Youssef MD LAB BLOOD BANK TEST ORDERABLES Performing Organization Address [facility] Co de Phone Number [facility] [employer] [facility] See order comments or contact performing lab Unknown, [place] * IMMUNO CHEMISTRY (10/05/2023) [facility] Hep B Surface Ag Negative Negative [facility] Hepatitis B Surface Ab 14 mIU/mL [facility] Comment: The anti-HBs (Hepatitis B surface antibody) is greater than or equal to 10 mIU/mL and implies immunity. The patient has either had an antibody response to HBV vaccination, received a transfusion, or has recovered from HBV infection. For post-vaccination antibody testing guidelines for the general public, refer to MMWR May 30, 2005/Vol.54 (No. 16); 06-30, and for healthcare workers, refer to MMWR May 27, 2013/Vol.62 (No. 10); -18. Reference Range: <10 mIU/mL ? Non-Immune >=10 mIU/mL ?Immune The magnitude of the measured result above 10 mIU/mL is not indicative of the total amount of antibody present. Hep B Core Total Ab Negative Negative [employer] Comment: Hep B Core Ab, Total appears during the acute infection stage and remains reactive/positive throughout the recovery stage. The above test result was obtained using [employer] IM chemiluminescent method. Results obtained with different assay methods or kits cannot be used interchangeably. Hepatitis C Antibody Nonreactive Nonreactive [employer] Comment: No HCV antibody detected. The above test result was obtained using [employer] IM chemiluminescent method. Results obtained with different assay methods or kits cannot be used interchangeably. S/CO Ratio 0.06 0.00 - 0.79 [facility] Comment: s/co ratio ?Interpretation ?Supplemental testing <0.80 ? Nonreactive ? No further testing required. 0.80-0.99 ? Equivocal ? HCV RNA Quantitative Real-Time PCR is recommended. 1.00->11.00 ?? Reactive ?HCV RNA Quantitative Real-Time PCR is recommended to distinguish active from resolved cases. 10/05/2023 10/06/2023 8:2 3 AM CDT Narrative Resulting Agency Comment Specimen source: Plasma Darren Youssef MD LAB BLOOD ORDERABLES [facility] [employer] See order comments or contact performing lab Unknown, [place] from Last 3 Months
--- OUTSIDE RECORDS SUMMARY | 2023-10-13 20:35 | XMS_ITS | Encounter Summary ---
Author Name Unknown Organization [facility] Address [address] [place] [address] Care Team Providers Care Music Minister Name Role Phone Unavailable Primary Care Provider Unavailabl e Encounter Details Date Type Department Care Team Description 10/07/2023 Orders Only [facility] [address] [place] [address] Darren Youssef MD [address] [place] [address] Social History Tobacco Use Types Packs/Day Years Used Date Smoking Tobacco: Never Assessed Sex and Gender Information Value Date Recorded Sex Assigned at Not on file Gender Identity Not on file Sexual Orientation Not on file documented as of this encounter Plan of Treatment Not on file documented as of this encounter Procedures Procedure Name Priority Date/Time Associated Diagnosis Comments TRACE ELEMENTS Routine 10/07/2023 documented in this encounter Results * TRACE ELEMENTS (10/07/2023) Aluminum <5 0 - 10 mcg/L [employer] Comment: This test was developed and its performance characteristics determined by [facility]. It has not been cleared or approved by the FDA. The laboratory is regulated under CLIA as qualified to perform high complexity testing. This test is used for clinical purposes. It should not be regarded as investigational or for research. 10/07/2023 10/08/2023 7:0 7 PM CDT Narrative [facility] - 10/09/2023 Unless otherwise specified, test(s) performed at: [facility], [address] [place] [address], [place] [address] [employer] SUPERVISOR: Rojas Kirkland M.D., Ph.D For any questions, please call customer service at FREQUENCY:OTHER Resulting Agency Comment Specimen source: Serum Darren Youssef MD LAB BLOOD ORDERABLES [facility] See order comments or contact performing lab Unknown, [place] documented in this encounter Visit Diagnoses Not on filedocumented in this encounter
--- OUTSIDE RECORDS SUMMARY | 2023-10-13 20:35 | XMS_ITS | Continuity of Care Document ---
Author Name [facility] Organization [facility] Care Team Providers Care Contracting Manager Name Role Phone [facility] Unavailable Unavailable Problems Combined list of problems from Department of Defense and Veterans 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 It does not include entries that were removed or entered in error. Problem Status Onset Date Problem Type Date of Resolution Comments Source Adenoma of large intestine Active Condition Jan 17, 2005 Entered By: TOMMY SARMIENTO Comment: colonoscopy and polypectomy 12/10, tubular adenoma at [facility] Cataract, Senile, Unsp Active Condition [facility] Chronic cough Active Condition [facility] Chronic obstructive lung disease Active Condition [facility] Chronic rhinitis Active Condition [facility] Coronary arteriosclerosis Active Condition Nov 10 7 Entered By: LIZZETTE WEI Comment: s/p LUEVr5m at [facility] in 07/15 [facility] Diabetes mellitus Active Condition [facility] Diabetic neuropathy Active Condition [facility] Diabetic renal disease Active Condition Dec 02, 2018 Entered By: CARLOS DALTON Comment: 10/2018: started hemodialysis @ [facility] in [facility] 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 [facility] Dyslipidemia Active Condition [facility] End-stage renal disease Active Condition [facility] Essential hypertension Active Condition [facility] Exposure to potentially hazardous substance Active Condition Dec 18, 2022 Entered By: CORRINE MATHEWS Comment: Asbestos [facility] Ganglion of wrist Active Condition [facility] Gastroesophageal reflux disease without esophagitis Active Condition [facility] Hemorrhoid Active Condition [facility] Hyperparathyroidism due to renal insufficiency Active Condition [facility] Hypothyroidism Active Condition [facility] Indwelling catheter inserted Active Condition [facility] Obstructive Sleep Apnea of Adult (SCT [id number]) Active Condition October 28, 2022 Entered By: KINGS ROCHA Comment: APAP: 10-20, Ramp: 5x10 min, [place] [facility] Oropharyngeal dysphagia Active Condition Dec 14, 2022 Entered By: CORRINE MATHEWS Comment: 2013 [employer] AGENT eval in chart [facility] Psoriasis Nos [facility] Shared care - professional employer consultant and GP Active Condition Dec 02 Entered By: CARLOS DALTON Comment: [facility]: [phone] ov 2020 Entered By: CARLOS DALTON Comment: 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 Representative: Dr James Pérez [phone] ov 2020 Entered By: CARLOS DALTON Comment: [facility] Cough (ICD-9-CM 786.2) Inactive Condition 03/23/2013 [facility] Diabetic Foot Ulcer (ICD-9-CM 250.80/707.8) Inactive Condition 03/23/2013 [facility] Diagnosis: ICD-10-CM H04.129 Dry eye syndrome of unspecified lacrimal gland Active Diagnosis [facility] Diagnosis: ICD-10-CM Z46.1 Encounter for fitting and adjustment of hearing aid Active Diagnosis [facility] Diagnosis: ICD-10-CM N18.6 End stage renal disease Active Diagnosis [facility] Diagnosis: ICD-10-CM R26.9 Unspecified abnormalities of gait and mobility Active Diagnosis [facility] Diagnosis: ICD-10-CM J44.9 Chronic obstructive pulmonary disease, unspecified [facility] Diagnosis: ICD-10-CM Z65.8 Oth problems related to psychosocial circumstances Active Diagnosis [facility] Diagnosis: ICD-10-CM R05.3 Chronic cough Active Diagnosis [facility] J[facility]Y [facility] Diagnosis: ICD-10-CM G47.33 Obstructive sleep apnea (adult) (pediatric) Active Diagnosis [facility] Medications Combined list of outpatient medications from [...] (FOR IMMEDIAT E RELIEF). INHALA TION 08/21/2023 [id number] 4 CASANDRA DALTON 2022 2 [facility] AZELASTINE HCL 137MCG/SPRA Y INHL,NASAL, 30ML SPRAY 1 PUFF IN EACH NOSTRIL TWICE A DAY FOR NASAL SYMPTOMS NASAL ACTIVE 01/13/2024 [id number] 3 RODRÍGUEZ MATHEWS 2022 2 [facility] CALCIUM CARBONATE TAB,CHEWABL E CHEW ONE TABLET BY MOUTH FOUR TIMES A DAY NEEDED ORALLY ACTIVE RODRÍGUEZ MATHEWS 2022 [facility] COENZYME Q10 CAP/TAB TAKE ONE TABLET BY MOUTH EVERY DAY ORALLY ACTIVE CASANDRA DALTON 2012 [facility] CYCLOSPORIN E 0.05% (PF) EMULSION,OP H,0.4ML INSTILL 1 DROP BOTH EYES TWICE A DAY BOTH EYES ACTIVE 08/10/2024 [id number] 4 FB-PURFEE RST,MATHEW OD 2023 60 [facility] CYCLOSPORIN E 0.05% (PF) EMULSION,OP H,0.4ML INSTILL 1 DROP BOTH EYES TWICE A DAY BOTH EYES 03/25/2023 [id number] 3 FB-PURFEE RST,MATHEW OD 2021 60 [facility] DEXTROMETHO RPHAN HBR 10MG/GUAIFE NESIN 100MG/5ML (AF & SF) LIQUID TAKE 1 TEASPOON FUL BY MOUTH EVERY 4 HOURS NEEDED FOR COUGH AND CONGESTI ON ORALLY ACTIVE 03/09/2024 [id number] 4 RODRÍGUEZ MATHEWS 2022 120 [facility] DIALYVITE TAB TAKE 1 TABLET BY MOUTH EVERY DAY ORALLY ACTIVE 07/02/2024 [id number] 4 RODRÍGUEZ MATHEWS 2023 100 [facility] DIALYV[facility] TAB TAKE 1 TABLET BY MOUTH EVERY DAY ORALLY DISCONT INUED 09/10/2023 [id number] 4 RODRÍGUEZ MATHEWS 2022 100 [facility] DM 10/GUAIFENE SN 100MG/5ML (ALC-F/SF)S YR TAKE 5 ML (1 TEASPOON FUL) BY MOUTH EVERY 8 HOURS NEEDED FOR COUGH ORALLY DISCONT INUED 08/21/2023 [id number] 3 CASANDRA DALTON 2022 360 [place] [facility] FLUTICASONE 250MCG/SALM ETEROL 50MCG INHL,ORAL,D ISKUS,60 INHALE 1 PUFF BY INHALATI ON TWICE A DAY TO PREVENT TROUBLE BREATHIN G -RINSE MOUTH AFTER USING INHALA TION 09/23/2023 [id number] 4 RODRÍGUEZ MATHEWS 2022 3 [facility] HYDROCORTIS ONE 2.5% CREAM,TOP APPLY THIN LAYER TOPICALL Y EVERY DAY NEEDED HEMORRHO ID TOPICA LLY 01/09/2023 [id number] 3 RODRÍGUEZ MATHEWS 2022 30 [facility] INSULIN,ASP ART,HUMAN (EQV-NOVOLO G) 100 UNIT/ML,FLE XPEN,3ML INJECT 5 UNITS UNDER THE SKIN TWICE A DAY TO DECREASE BLOOD SUGAR-- INJECT IMMEDIAT LINDA BEFORE MEAL (PEN FILL APPROVED ) REPLACES REGULAR INSULIN PEN SUBCUT ANEOUS 05/13/2023 [id number] 3 RODRÍGUEZ MATHEWS 2021 5 [facility] INSULIN,GLA RGINE,HUMAN 100 UNIT/ML INJ,SOLOSTA R,3ML INJECT 18 UNITS UNDER THE SKIN EVERY DAY FOR DIABETES DISCAR D PEN 28 DAYS AFTER INITIAL USE SUBCUT ANEOUS DISCONT INUED 05/13/2023 [id number] 3 RODRÍGUEZ MATHEWS 2021 5 [facility] INSULIN,GLA RGINE,HUMAN 100 UNIT/ML INJ,SOLOSTA R,3ML INJECT 18 UNITS UNDER THE SKIN EVERY DAY FOR DIABETES DISCAR D PEN 28 DAYS AFTER INITIAL USE SUBCUT ANEOUS DISCONT INUED (EDIT) 06/06/2024 [id number] 4 RODRÍGUEZ MATHEWS 2023 5 [facility] INSULIN,GLA RGINE-YFGN 100UNIT/ML INJ PEN,3ML INJECT 18 UNITS UNDER THE SKIN EVERY DAY FOR DIABETES DISCAR D PEN 28 DAYS AFTER INITIAL USE SUBCUT ANEOUS ACTIVE 06/09/2024 [id number] 4 RODRÍGUEZ MATHEWS 2023 5 [facility] LEVOTHYROXI NE NA 175MCG TAB (SYNTHROID) TAKE ONE TABLET BY MOUTH EVERY DAY FOR THYROID ORALLY DISCONT INUED 08/01/2023 [id number] 3 RODRÍGUEZ MATHEWS 2022 90 [place] [facility] LEVOTHYROXI NE NA 175MCG TAB (SYNTHROID) TAKE ONE TABLET BY MOUTH EVERY DAY FOR THYROID ORALLY DISCONT INUED 07/30/2023 [id number] 3 RODRÍGUEZ MATHEWS 2022 90 [place] [facility] LEVOTHYROXI NE NA 200MCG TAB (SYNTHROID) TAKE ONE TABLET BY MOUTH EVERY DAY FOR THYROID ORALLY ACTIVE 01/13/2024 [id number] 4 RODRÍGUEZ MATHEWS 2022 90 [place] [facility] LORATADINE 10MG TAB TAKE ONE TABLET BY MOUTH EVERY DAY NEEDED ORALLY ACTIVE RODRÍGUEZ MATHEWS 2022 [place] [facility] MARINE LIPID (FISH OIL) CAP,ORAL TAKE 1200MG BY MOUTH EVERY DAY ORALLY ACTIVE CASANDRA DALTON 2010 [place] [facility] MONTELUKAST NA 10MG TAB TAKE ONE TABLET BY MOUTH EVERY DAY ORALLY ACTIVE 05/08/2024 [id number] 4 CASANDRA DALTON 2022 90 [place] [facility] MONTELUKAST NA 10MG TAB TAKE ONE TABLET BY MOUTH EVERY DAY ORALLY DISCONT INUED 05/01/2023 [id number] 3 CASANDRA DALTON 2021 90 [place] [facility] NITROGLYCER IN 0.4MG TAB,SUBLING UAL DISSOLVE ONE TABLET UNDER THE TONGUE PRN SUBLIN GUAL ACTIVE CASANDRA DALTON 2010 [place] [facility] PANTOPRAZOL E NA 40MG TAB,EC TAKE ONE TABLET BY MOUTH EVERY DAY ONE-HALF HOUR BEFORE EATING. ORALLY ACTIVE 07/02/2024 [id number] 4 CASANDRA DALTON 2023 90 [facility] PANTOPRAZOL E NA 40MG TAB,EC TAKE ONE TABLET BY MOUTH EVERY DAY ONE-HALF HOUR BEFORE EATING. ORALLY DISCONT INUED 05/29/2023 [id number] 3 CASANDRA DALTON 2022 90 [facility] PRAVASTATIN NA 40MG TAB TAKE ONE TABLET BY MOUTH AT BEDTIME FOR CHOLESTE ROL ORALLY ACTIVE 06/06/2024 [id number] 4 RODRÍGUEZ MATHEWS 2023 90 [place] [facility] PRAVASTATIN NA 40MG TAB TAKE ONE TABLET BY MOUTH AT BEDTIME FOR CHOLESTE ROL ORALLY DISCONT INUED 06/05/2024 [id number] 3 CASANDRA DALTON 2022 90 [facility] PRAVASTATIN NA 40MG TAB TAKE ONE TABLET BY MOUTH AT BEDTIME FOR CHOLESTE ROL ORALLY DISCONT INUED 05/29/2023 [id number] 3 CASANDRA DALTON 2021 90 [place] [facility] TIOTROPIUM 2.5MCG/ACTU AT INHL,ORAL,6 0D,4GM INHALE TWO PUFFS BY INHALATI ON EVERY DAY FOR ASTHMA INHALA TION ACTIVE 08/26/2024 [id number] 4 ZULETA,HI NA 2023 1 [place] [facility] TIOTROPIUM 2.5MCG/ACTU AT INHL,ORAL,6 0D,4GM INHALE TWO PUFFS BY INHALATI ON EVERY DAY FOR ASTHMA INHALA TION DISCONT INUED 10/29/2023 [id number] ZULETA,HI NA 2022 1 [place] [facility] VANICREAM APPLY THIN LAYER TOPICALL Y EVERY DAY FOR DRY SKIN TOPICA LLY ACTIVE 12/19/2023 [id number] 4 RODRÍGUEZ MATHEWS H 2022 1362 [place] [facility] VANICREAM APPLY TO DRY SKIN TOPICALL Y EVERY DAY NEEDED FOR DRY SKIN TOPICA LAUREN TOUSSAINT INUED 05/01/2023 [id number] 3 SHA CASANDRA 2021 908 [facility] VITAMIN E 400UNT CAP TAKE 1 CAPSULE BY MOUTH EVERY DAY ORALLY ACTIVE [facility] 2013 [facility] ZINC SULFATE TAB TAKE 50MG BY MOUTH EVERY DAY ORALLY ACTIVE [facility] 2014 [facility] Allergies, Adverse Reactions, Alerts Combined list of allergies from Department of [facility] and [facility] facilities. It does not include entries that were removed or entered in error. Substance Category Reaction Severity Reaction type Status Date Reported Comments Source ATORVASTATIN Propensity to adverse reactions to drug (finding) Pain in lower limb active 9 [facility] DOXYCYCLINE Propensity to adverse reactions to drug (finding) PRURITIS, Eruption active 4 [facility] HYDROCODONE Propensity to adverse reactions to drug (finding) Disorientat ed, Drowsy, Hallucinati ons active 3 [facility] LIPITOR Propensity to adverse reactions to drug (finding) Cramp active 0 [facility] LISINOPRIL Propensity to adverse reactions to drug (finding) Abdominal discomfort active 7 [facility] METOCLOPRAMI DE Propensity to adverse reactions to drug (finding) Gynecomasti a active 0 [facility] OMEPRAZOLE Propensity to adverse reactions to drug (finding) Diarrhea active 0 [facility] SIMVASTATIN Propensity to adverse reactions to drug (finding) MUSLCE CRAMPS active 4 [facility] Immunizations Combined list of available immunizations from the Department of [facility] and [facility] facilities. Immunization Series Date Given Administered By Site Reaction Lot Number CVX Code Drug Hosted Services Analyst Status Comments Source TDAP 2022 [facility] RIGHT DELTO ID [id number] 115 complet ed [facility] INFLUENZA, UNSPECIFIED FORMULATION 2021 88 complet ed [facility] INFLUENZA, UNSPECIFIED FORMULATION 2020 88 complet ed [facility] ZOSTER RECOMBINANT 2 04/13/ 2021 187 complet ed [facility] ZOSTER RECOMBINANT 1 2019 187 complet ed [facility] INFLUENZA, SEASONAL, INJECTABLE, PRESERVATIVE FREE 2019 140 complet ed [facility] INFLUENZA, UNSPECIFIED FORMULATION 2018 88 complet ed [facility] INFLUENZA, SEASONAL, INJECTABLE, PRESERVATIVE FREE 2017 140 complet ed [facility] INFLUENZA, HIGH DOSE SEASONAL 2016 135 complet ed [facility] INFLUENZA, HIGH DOSE SEASONAL 2014 135 complet ed [facility] PNEUMOCOCCAL CONJUGATE PCV 13 2014 133 complet ed [employer] [id number] 08/22 [facility] INFLUENZA, UNSPECIFIED FORMULATION 2013 88 complet ed [facility] INFLUENZA, UNSPECIFIED FORMULATION 2012 88 complet ed [facility] PNEUMOCOCCAL, UNSPECIFIED FORMULATION 2012 109 complet ed [employer], [id number], [facility] TDAP 2012 115 complet ed [facility] TDAP 2012 115 complet ed [facility] ZOSTER LIVE 2012 121 complet ed [employer] Lot#[id number] [id number] 14 [facility] INFLUENZA, UNSPECIFIED FORMULATION 2011 88 complet ed [facility] INFLUENZA, UNSPECIFIED FORMULATION 2010 88 complet ed [facility] INFLUENZA, UNSPECIFIED FORMULATION 2009 88 complet ed [facility] INFLUENZA, UNSPECIFIED FORMULATION 2008 88 complet ed [facility] TD(ADULT) UNSPECIFIED FORMULATION 2007 139 complet ed [facility] INFLUENZA (HISTORICAL) 2006 88 complet ed [facility] INFLUENZA (HISTORICAL) 2005 88 complet ed [facility] INFLUENZA, UNSPECIFIED FORMULATION 2004 88 complet ed [facility] INFLUENZA, UNSPECIFIED FORMULATION 2003 88 complet ed [facility] PNEUMOCOCCAL, UNSPECIFIED FORMULATION 2003 109 complet ed [facility] TD(ADULT) UNSPECIFIED FORMULATION 2003 139 complet ed due next year [facility] INFLUENZA (HISTORICAL) 2002 88 complet ed pt states he had a Influenza vaccinati on this yr [facility] TD(ADULT) UNSPECIFIED FORMULATION 1994 139 complet ed [facility] Vital Signs Combined list of inpatient [...] ADM Date DC Date Status Disposition Source [place] [facility] Outpatient Encounter [id number] 04/25 [facility] [place] [facility] Outpatient Encounter [id number] 04/25 [facility] [place] [facility] Outpatient Encounter [id number] 05/06 [facility] [place] [facility] Outpatient Encounter [id number] 05/08 [facility] CASE MANAGEMENT [id number] JENNIFER THAPA CCA 05/13 [facility] Outpatient Encounter [id number] 05/20 [facility] [place] [facility] Outpatient Encounter [id number] 06/03 [facility] [place] [facility] Outpatient Encounter [id number] 06/04 [facility] Outpatient Encounter [id number] 06/05 [facility] [place] [facility] Outpatient Encounter [id number] 06/08 [facility] [place] [facility] Outpatient Encounter [id number] 06/08 [facility] [place] [facility] Outpatient Encounter [id number] 06/23 [place] [facility] [place] [facility] Outpatient Encounter [id number] 08/06 [place] [facility] [place] [facility] Outpatient Encounter [id number] 08/11 [place] [facility] [place] [facility] Outpatient Encounter [id number] 08/11 [place] [facility] [place] [facility] Outpatient Encounter [id number] 08/14 [place] [facility] [place] [facility] HC PRO PHONE CALL 5-10 MIN [id number] Diagnos is: ICD-10- CM G47.33 Obstruc tive sleep apnea (adult) (pediat jocelynn)
KARON YOUNG 08/15 [facility] Encounter [id number] 08/26 [facility] [place] [facility] Outpatient Encounter [id number] 10/27 [place] [facility] [place] [facility] PT EDUCATION NOC INDIVID [id number] Diagnos is: ICD-10- CM G47.33 Obstruc tive sleep apnea (adult) (pediat jocelynn)
KINGS ROCHA 10/28 [place] [facility] [place] [facility] Outpatient Encounter [id number] 11/05 [place] [facility] [place] [facility] Outpatient Encounter [id number] 11/26 [place] [facility] [place] [facility] Outpatient Encounter [id number] MARY ELLEN MAY 12/10 [place] [facility] [place] [facility] Outpatient Encounter [id number] 12/10 [facility] [place] [facility] Outpatient Encounter [id number] 12/10 [facility] OFFICE O/P EST HI 40-54 MIN [id number] Diagnos is: ICD-10- CM R05.3 Chronic cough<b r/> BISIS ALLY H 12/18 [facility] [place] [facility] Outpatient Encounter [id number] 01/07 [facility] Outpatient Encounter [id number] 02/05 [facility] Outpatient Encounter [id number] 02/11 [facility] PRO PHONE CALL 21-30 MIN [id number] Diagnos is: ICD-10- CM Z65.8 Oth problem s related to psychos ocial circums tances< br/> VESNA GRAY 02/11 [facility] Outpatient Encounter [id number] DEBRA PINTO 02/18 [facility] SELF CARE MNGMENT TRAINING [id number] Diagnos is: ICD-10- CM J44.9 Chronic obstruc tive pulmona ry disease , unspeci fied
MAGGIE EVANS A 02/19 [facility] Outpatient Encounter [id number] 03/03 [facility] Outpatient Encounter [id number] Diagnos is: ICD-10- CM R26.9 Unspeci fied abnorma lities of gait and mobilit y
NANCY HOWARD 03/04 [facility] Outpatient Encounter [id number] 03/06 [place] [facility] [place] [facility] Outpatient Encounter [id number] 03/26 [place] [facility] [place] [facility] TARGETED CASE MANAGEMENT [id number] hCani PERAZA L 05/04 [place] [facility] [place] [facility] HC PRO PHONE CALL 5-10 MIN [id number] Diagnos is: ICD-10- CM N18.6 End stage renal disease
FADUMO HERNANDEZ 05/05 [place] [facility] [place] [facility] TARGETED CASE MANAGEMENT [id number] Chani PERAZA 05/05 [facility] [place] [facility] TARGETED CASE MANAGEMENT [id number] Chani PERAZA 05/[address] [facility] CASE MANAGEMENT [id number] JENNIFER THAPA CCA 05/13 [facility] Outpatient Encounter [id number] 05/13 [facility] Outpatient Encounter [id number] GUADALUPE ACOSTA 05/14 [facility] CASE MANAGEMENT [id number] Chani PERAZA 05/19 [place] [facility] Outpatient Encounter [id number] 05/19 [facility] Outpatient Encounter [id number] Chani PERAZA 05/27 [facility] Outpatient Encounter [id number] 05/28 [facility] Outpatient Encounter [id number] 05/28 [facility] Outpatient Encounter [id number] ANSELMO ARMSTRONG NANCY A 06/02 [facility] Outpatient Encounter [id number] 06/02 [facility] Outpatient Encounter [id number] DARRELL LOO 06/17 [facility] Outpatient Encounter [id number] 06/18 [facility] Outpatient Encounter [id number] Jared RUVALCABA 06/25 [facility] HEARING AID CHECK BOTH EARS [id number] Diagnos is: ICD-10- CM Z46.1 Encount er for fitting and adjustm ent of hearing aid<br/ > DANELLE MAYFIELD 07/23 [facility] PRO PHONE CALL 5-10 MIN [id number] Diagnos is: ICD-10- CM H04.129 Dry eye syndrom e of unspeci fied lacrima l gland<b r/> FADUMO HERNANDEZ ICA K 08/09 [facility] Social History Combined list of available smoking, tobacco, and 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 Social History Type Response Date Comment Sourc e Tobacco smoking status MAIS VA-TOBACCO QUIT 15 YRS OR MORE 12/18/2022 [facility] History of tobacco use VA-TOBACCO FORMER USER 12/18/2022 [facility] History of tobacco use VA-TOBACCO FORMER USER 11/05/2021 [facility] History of tobacco use VA-TOBACCO QUIT 1 5 YRS OR MORE 07/28/2019 [facility] History of tobacco use VA-TOBACCO QUIT 1 5 YRS OR MORE 12/10/2018 [facility] History of tobacco use VA-TOBACCO QUIT 1 5 YRS OR MORE 02/25/2018 [facility] History of tobacco use FORMER TOBACCO US ER 7Y OR GREATER 04/10/2015 [facility] History of tobacco use FORMER TOBACCO US ER 7Y OR GREATER 04/27/2014 [facility] History of tobacco use FORMER TOBACCO US ER 7Y OR GREATER 06/18/2006 [facility] Plan of Care List of future care activities from [facility] facilities. Additional future care activities may be listed in the Assessment and Plan section. Date/Time Care Activity Care Activity Detail Facili ty 10/15/2023 AMBULATORY - SURGERY AMBULATORY - SURGERY [facility] Advance Directives List of completed, amended, or rescinded Advance Directives on record at Department of [facility] facilities. An actual copy of the Directive is not included. Date Advance Directive Provider Source 05/23/2003 ADVANCE DIRECTIVE [facility]
--- OUTSIDE RECORDS SUMMARY | 2023-10-13 20:35 | XMS_ITS ---
Author Name [facility] Address [address] [place] [id number] Phone [phone] [facility] e, NA DOCUMENT DISCLAIMER Multiple document versions may exist, please be sure you review the latest version. 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 Active September 15, 2023 [facility] (current) use of insulin Z79.4 Active September 15, 2023 Chronic obstructive pulmonary disease, unspecified J44 .9 Active September 15, 2023 Atherosclerotic heart diseas e of [place] coronary artery without angina pectoris I25.10 Active [...] October 05, 2023 October 03, 2024 Active Iron Sucrose (Venofer) During Dialysis, 1X Week 50 mg Intravenous - push October 12, 2023 October 10, 2024 Active Vitamin D (Calcitriol) Oral 3X Week 0.25 mcg Oral October 09, 2023 October 07, 2024 Active Home Medications Medication Instructions Dosage Route Start Date End Date [facility] albuterol sulfate 90 mcg/actuation Inhale using inhaler [...] capsule ORAL January 07, 2023 Active Dialyvite [phone] kg-or-evh-mg Take by mouth every evening with meals 1 tablet ORAL January 07, 2023 Active Flonase Allergy Relief 50 mcg/actuation [place] intranasally once a day 1 spray NASAL [...] tablet ORAL October 29, 2020 Active MegaRed [place]-3 Krill Oil 1,000-230-60 mg Take by mouth [...] Sign Value Date / Time Blood Pressure-sitting 122/66 mmHg October 11 11:07 AM Heart Rate 72 beats per minute October 12, 2023 11:07 AM Respiratory Rate 18 breaths per minute October 11 11:07 AM Temperature 98.0 deg. F October 12, 2023 11: 07 AM Weight Vital Sign Value Date / Time Estimated Dry Weight 94.5 kg October 11 11:59 PM Pre-Dialysis 95.20 kg October 12, 2023 11: 07 AM Post-Dialysis 93.80 kg October 12, 2023 11: 07 AM Other Other Value Date / Time Height 183 cm October 02, 2023 1 2:00 AM [facility] LAB RESULTS Hematology Result Type Result Value Relevant Referen ce Range Interpretation Date Folate, Serum > 24.0 ng/mL No Reference Ran ge Provided - April 08, 2023 UIBC (Calc) 64 mcg/dL 155 - 355 mcg/dL Low Dece2022 Transferrin Sat. (Calc) 66 % 20 - 55 % High May 13 TIBC 188 mcg/dL 185 - 515 mcg/dL - May 13, 2023 Platelets 145 1000/mcL 130 - 400 1000/mcL - Dece mb2022 Neutrophils 60.5 % 40.0 - 75.0 % - Matt 0 6, 2023 WBC (No Diff) 4.60 1000/mcL 4.80 - 10.80 1000/mcL Low May 13, 2023 Transferrin Sat. (Calc) 36 % 20 - 55 % - October 05, 2023 TIBC 210 mcg/dL 185 - 515 mcg/dL - September UIBC (Calc) 134 mcg/dL 155 - 355 mcg/dL Low September 072023 Iron 76 mcg/dL 45 - 160 mcg/dL - October 05, 2023 Ferritin 927 ng/mL 22 - 322 ng/mL High October 05, 2023 Folate, Serum > 24.0 ng/mL No Reference Ran ge Provided - October 05, 2023 MCHC 32.9 g/dL 30.0 - 36.0 g/dL - September MCH 32.8 pg 27.0 - 31.0 pg High October 05, 2023 HGB 10.0 g/dL 14.0 - 18.0 g/dL Low September RDW 15.3 % 11.5 - 14.5 % High October 04, 024 Platelets 147 1000/mcL 130 - 400 1000/mcL - Apri 2023 Hemoglobin x 3 30.0 % 42.0 - 54.0 % Low September 072023 HCT 30.5 % 42.0 - 52.0 % Low October 04, 024 RBC 3.06 mill/mcL 4.70 - 6.10 mill/mcL Low October 05, 2023 Neutrophils 71.8 % 40.0 - 75.0 % - October 05, 2023 Monocytes 9.6 % 3.0 - 10.0 % - October 04 Lymphocytes 13.5 % 19.0 - 48.0 % Low October 05, 2023 Basophils 0.7 % 0.0 - 1.5 % - October 04 4 Eosinophil 2.3 % 0.0 - 7.0 % - October 04 4 WBC (No Diff) 6.34 1000/mcL 4.80 - 10.80 1000/mcL - October 05, 2023 COURTNEY 2.1 % 0.0 - 4.0 % - October 04 4 Platelets 170 1000/mcL 130 - 400 1000/mcL - October 09, 2023 RDW 15.0 % 11.5 - 14.5 % High October 08 MCHC 32.8 g/dL 30.0 - 36.0 g/dL - October 09, 2023 Hemoglobin x 3 31.2 % 42.0 - 54.0 % Low October 09, 2023 HGB 10.4 g/dL 14.0 - 18.0 g/dL Low October 09, 2023 Neutrophils 66.0 % 40.0 - 75.0 % - October 08 COURTNEY 3.0 % 0.0 - 4.0 % - October 09, 2023 Basophils 0.5 % 0.0 - 1.5 % - October 09, 2023 RBC 3.14 mill/mcL 4.70 - 6.10 mill/mcL Low October 09, 2023 WBC (No Diff) 6.75 1000/mcL 4.80 - 10.80 1000/mcL - October 09, 2023 Lymphocytes 17.0 % 19.0 - 48.0 % Low October 08 Eosinophil 2.9 % 0.0 - 7.0 % - October 09, 2023 Monocytes 10.7 % 3.0 - 10.0 % High October 09, 2023 HCT 31.5 % 42.0 - 52.0 % Low October 08 MCH 32.9 pg 27.0 - 31.0 pg High October 08 Ferritin 903 ng/mL 22 - 322 ng/mL High October 08 Transferrin Sat. (Calc) 50 % 20 - 55 % - October 09, 2023 Iron 103 mcg/dL 45 - 160 mcg/dL - October 08 024 TIBC 204 mcg/dL 185 - 515 mcg/dL - October 09, 2023 UIBC (Calc) 101 mcg/dL 155 - 355 mcg/dL Low October 09, 2023 Metabolic/Renal Result Type Result Value Relevant Reference Range Interpre tation Date Vitamin B12 844 pg/mL 211 - 911 pg/mL - September Bicarbonate 23 mEq/L 20 - 31 mEq/L - October 05, 2023 Chloride 97 mEq/L 96 - 108 mEq/L - October 05, 2023 Potassium 4.6 mEq/L 3.5 - 5.1 mEq/L - October 05, 2023 Sodium 131 mEq/L 136 - 145 mEq/L Low October 05, 2023 URR, Calc 71 % 65 - 80 % - October 05, 2023 BUN/Creat Ratio 8.1 10.0 - 20.0 Low September Creatinine, Serum 9.56 mg/dL 0.60 - 1.30 mg/dL High October 05, 2023 BUN 77 mg/dL 6 - 19 mg/dL High October 04 BUN, Post 22 mg/dL 6 - 19 mg/dL High October 04 BUN 43 mg/dL 6 - 19 mg/dL High October 09, 2023 BUN/Creat Ratio 5.6 10.0 - 20.0 Low October 09, 2023 Creatinine, Serum 7.74 mg/dL 0.60 - 1.30 mg/dL High October 09, 2023 Potassium 3.9 mEq/L 3.5 - 5.1 mEq/L - October 08 024 Sodium 138 mEq/L 136 - 145 mEq/L - October 08 024 Chloride 99 mEq/L 96 - 108 mEq/L - October 08 BUN, Post 11 mg/dL 6 - 19 mg/dL - October 09, 2023 Bicarbonate 28 mEq/L 20 - 31 mEq/L - October 08 URR, Calc 74 % 65 - 80 % - October 09, 2023 HD Adequacy Result Type Result Value Relevant Referen ce Range Interpretation Date Krt/V 0.00 No Reference Ran ge Provided - May 13, 2023 wstdKt/V without residual 0.8 No Reference Range Provided - October 05, 2023 eKt/V ([place]) 1.25 No Reference Range Provided - October 05, 2023 spKt/V (Daugirdas II) 1.46 No Reference Range Provided - October 05, 2023 wstdKt/V, residual 0.0 No Reference Range Provided - October 05, 2023 wstdKt/V 0.8 No Reference Ran ge Provided - October 05, 2023 Krt/V 0.00 No Reference Ran ge Provided - October 09, 2023 spKt/V (Daugirdas II) 1.56 No Reference Range Provided - October 09, 2023 wstdKt/V 2.4 No Reference Ran ge Provided - October 09, 2023 eKt/V ([place]) 1.34 No Reference Range Provided - October 09, 2023 wstdKt/V, residual 0.0 No Reference Range Provided - October 09, 2023 wstdKt/V without residual 2.4 No Reference Range Provided - October 09, 2023 spKt/V Gotch 1.64 No Reference Ran ge Provided - October 09, 2023 Bone/Mineral Result Type Result Value Relevant Referen ce Range Interpretation Date Magnesium 1.9 mg/dL 1.6 - 2.6 mg/dL - October 13, Vitamin D 25 Hydroxy 65.3 ng/mL 30.0 - 100.0 ng/mL - October 13, 2022 Magnesium 1.9 mg/dL 1.6 - 2.6 mg/dL - December 10, 2022 Magnesium 1.9 mg/dL 1.6 - 2.6 mg/dL - March Magnesium 1.9 mg/dL 1.6 - 2.6 mg/dL - April 08, 2023 Vitamin D 25 Hydroxy 66.6 ng/mL 30.0 - 100.0 ng/mL - April 08, 2023 Magnesium 2.0 mg/dL 1.6 - 2.6 mg/dL - October 05, 2023 Corrected Ca x P Product 0 - October 05, 2023 Alkaline Phosphatase 110 U/L 40 - 129 U/L - Ap ril 2023 Ca x P Product 33 0 - October 05, 2023 Phosphorus 3.6 mg/dL 2.6 - 4.5 mg/dL - October 05, 2023 Calcium, Total 9.2 mg/dL 8.7 - 10.4 mg/dL - Apr l 2023 Vitamin D 25 Hydroxy 67.7 ng/mL 30.0 - 100.0 ng/mL - October 05, 2023 PTH-Intact, Plasma 323 pg/mL 16 - 80 pg/mL High Sep Alkaline Phosphatase 105 U/L 40 - 129 U/L - Ma y 2023 Calcium, Total 9.0 mg/dL 8.7 - 10.4 mg/dL - October 09, 2023 Ca x P Product 0 - October 08, 24 Phosphorus 2.9 mg/dL 2.6 - 4.5 mg/dL - October 08 Corrected Ca x P Product 0 - October 09, 2023 PTH-Intact, Plasma 435 pg/mL 16 - 80 pg/mL High October 09, 2023 Magnesium 1.9 mg/dL 1.6 - 2.6 mg/dL - October 08 024 Liver/Nutrition Result Type Result Value Relevant Reference Range Interpre tation Date A/G Ratio 1.3 1.0 - 2.0 - October 05, 2023 Globulin (Calc) 3.1 g/dL 2.0 - 4.0 g/dL - October 05, 2023 Albumin (BCG) 3.9 g/dL 3.5 - 5.2 g/dL - September 072023 Total Protein 7.0 g/dL 6.0 - 8.5 g/dL - September 072023 Total Protein 7.4 g/dL 6.0 - 8.5 g/dL - October 09, 2023 Albumin (BCG) 3.9 g/dL 3.5 - 5.2 g/dL - October 09, 2023 eNPCR 0.82 No Reference Ran ge Provided - October 09, 2023 A/G Ratio 1.1 1.0 - 2.0 - October 09, 2023 Globulin (Calc) 3.5 g/dL 2.0 - 4.0 g/dL - October Immunochemistry Result Type Result Value Relevant Reference Range Interpre tation Date HCV s/co ratio 0.04 0.00 - 0.79 - October 13 023 HCV s/co ratio 0.06 0.00 - 0.79 - October 05, 2023 Trace Elements Result Type Result Value Relevant Reference Range Interpre tation Date Aluminum 5 mcg/L 0 - 10 mcg/L - December 10 3 Aluminum < 5 mcg/L 0 - 10 mcg/L - April 08, 2023 Aluminum 8 mcg/L 0 - 10 mcg/L - October 04 Aluminum < 5 mcg/L 0 - 10 mcg/L - October 07, 2023 Infectious Diseases Result Type Result Value Relevant Referen ce Range Interpretation Date Hep B core Ab Total (anti-HBc) Negative No Reference Range Provided - October 05, 2023 Hep B Surface Ab (anti-HBs) 14 mIU/mL No Reference Range Provided - October 05, 2023 HCV Ab (anti-HCV) Nonreactive No Reference R martha Provided - October 05, 2023 Hep B Surface Ag (HBsAg) Negative No Reference Range Provided - October 05, 2023 DIALYSIS PRESCRIPTION Conventional Hemodialysis Data Element Value Order Date/Time October 12, 2023 Frequency 3X Week Treatment Days MonWedFri Dialyzer 180NRe Optiflux Treatment Time (Total Minutes) 210 min Blood Flow Rate (mL/min) 450 mL/min Dialysate Flow Rate Manual 800 Estimated Dry Weight 94.5 kg Dialysate Concentrate 2.0 K, 2.5 Ca, 1.0 Mg, 100 Dextrose (G2251) Sodium (mEq/L) 135 mEq/L Bicarb Machine Setting (mEq/L) 32 mEq/L Dialysis Access Hemodialysis-AV Fist lona-Standard, Left Forearm, Other/Unknown Arterial Needle Size 15g1 Venous Needle Size 15g1 IMMUNIZATIONS Vaccine Date Dose Route Status Flu Vaccine - Flublok Quadrivalent March 23, 2023 0.5 mL Intramuscular Completed Electrolytic Ozone COVID-19 Vac cine, Bivalent, Booster March 17, 2022 0.3 mL Intramuscular Completed HEPLISAV-B, series 4 of 4 March 25, 2021 20.0 mcg Intr amuscular Completed HEPLISAV-B, series 3 of 4 January 28, 2021 20.0 mcg Intra muscular Completed HEPLISAV-B, series 2 of 4 December 31, 2020 20.0 mcg Intramu scular Completed HEPLISAV-B, series 1 of November 26, 2020 20.0 mcg Intramu scular Completed TRANSPLANT WAITLIST STATUS No Information on Transplant Waitlist Status ADVANCE DIRECTIVES Directive Description Ordered By Effective Date Resuscitation status Full Code Darren Youssef Oct 05, 2023 DIALYSIS TREATMENTS Conventional Hemodialysis Date Pre-Treatment Vitals Post-Treatment Sylvia ls Duration (hr) BFR (mL/min) Dialysate Dialyzer Dialysis Access Meds Admin October 07, 2023 Weight 96.80 kg Weight 95.00 kg 03:01:00 450 3.0 K, 2.5 Ca, 1.0 Mg, 100 Dextrose (G3251) 180nre Optifl ux Blood Pressure-sitting 91/45 mmHg Blood Pressure-sit ting 131/43 mmHg Heart Rate 87 beats per minute Heart Rate 69 beats per minute Respiratory Rate 18 breaths per minute Respiratory Rate 18 breaths per minute Temperature 97.8 deg. F Temperature 98.0 deg. F October 09, 2023 Weight 96.10 kg Weight 94.10 kg 03:32:00 430 3.0 K, 2.5 Ca, 1.0 Mg, 100 Dextrose (G3251) 180nre Optiflux Hemodialysis-AV Fistula-Standard, Left Forearm, Other/Unknown Heparin Sodium (Porcine) 1,000 Units/mL Systemic; 2000units,Intravenous - push Vitamin D (Calcitriol) Oral; 0.25mcg,Oral Blood Pressure-sitting 107/47 mmHg Blood Pressure-sit ting 104/51 mmHg Heart Rate 74 beats per minute Heart Rate 71 beats per minute Respiratory Rate 18 breaths per minute Respiratory Rate 18 breaths per minute Temperature 98.0 deg. F Temperature 97.6 deg. F October 12, 2023 Weight 95.20 kg Weight 93.80 kg 03:25:00 460 3.0 K, 2.5 Ca, 1.0 Mg, 100 Dextrose (G3251) 180nre Optiflux Hemodialysis-AV Fistula-Standard, Left Forearm, Other/Unknown Heparin Sodium (Porcine) 1,000 Units/mL Systemic; 2000units,Intravenous - push Iron Sucrose (Venofer); 50mg,Intravenous - push Vitamin D (Calcitriol) Oral; 0.25mcg,Oral Blood Pressure-sitting 93/47 mmHg Blood Pressure-sit ting 122/66 mmHg Heart Rate 86 beats per minute Heart Rate 72 beats per minute Respiratory Rate 18 breaths per minute Respiratory Rate 18 breaths per minute Temperature 98.3 deg. F Temperature 98.0 deg. F
--- OUTSIDE RECORDS SUMMARY | 2023-10-13 20:35 | XMS_ITS | Encounter Summary ---
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 Name Role Phone Unavailable Primary Care Provider Unavailabl e Encounter Details Date Type Department Care Team Description 10/09/2023 Orders Only [facility] [address] [place] [address] Darren Youssef MD [address] [place] [address] Social History Tobacco Use Types Packs/Day Years Used Date Smoking Tobacco: Never Assessed Sex and Gender Information Value Date Recorded Sex Assigned at Not on file Gender Identity Not on file Sexual Orientation Not on file documented as of this encounter Plan of Treatment Not on file documented as of this encounter Procedures Procedure Name Priority Date/Time Associated Diagnosis Comments HD KINETICS Routine 10/09/2023 POST CHEMISTRY Routine 10/09/2023 HEMATOLOGY Routine 10/09/2023 CHEMISTRY Routine 10/09/2023 CHEMISTRY Routine 10/09/2023 [facility] RES[facility] Routine 10/09/2023 documented in this encounter Results * [facility] Results (10/09/2023) eKdrt/V 1.39 [facility] eKt/V Gotch 1.39 [facility] eKt/V ([place]) 1.34 [facility] spKt/V (Daugirdas II) 1.56 [facility] nPCR_HD 0.88 [facility] spKt/V Gotch 1.[facility] WSTDKT/V 2.4 [facility] eNPCR 0.82 [facility] PCR 56.22 [facility] 10/09/2023 10/09/2023 [place] Ordering Provider LAB BLOOD ORDERABLE S Performing Organization Address City/[facility]/ZIP Co de Phone Number [facility] Contact Performing lab Unknown, [place] * HD KINETICS (10/09/2023) % Urea Reduction 74 65 - 80 % [facility] 10/09/2023 10/10/2023 4:3 3 AM CDT Narrative Resulting Agency Comment Specimen source: Plasma Darren Youssef MD LAB BLOOD ORDERABLES Performing Organization Address [facility] Co de Phone Number [facility] See order comments or contact performing lab Unknown, [place] * POST CHEMISTRY (10/09/2023) BUN Post Dialysis 11 6 - 19 mg/dL [facility] 10/09/2023 10/10/2023 4:3 3 AM CDT Narrative [facility] - 10/10/2023 Unless otherwise specified, test(s) performed at: [email or web address], [address] [place] [address], [place] [address] CONTRACTING SUPPORT SPECIALIST: Rojas Kirkland M.D., Ph.D For any questions, please call customer service at FREQUENCY:MONTHLY Resulting Agency Comment Specimen source: Plasma Darren Youssef MD LAB BLOOD ORDERABLES Performing Organization Address City/[facility]/ZIP Co de Phone Number [facility] See order comments or contact performing lab Unknown, [place] * (ABNORMAL) [facility] (10/09/2023) BUN 43(H) 6 - 19 mg/dL [facility] [...] 10/09/2023 10/10/2023 4:4 0 AM CDT Narrative [facility] - 10/10/2023 Unless otherwise specified, test(s) performed at: [email or web address], [address] [place] [address], [place] [address] CONTRACTING SUPPORT SPECIALIST: Rojas Kirkland M.D., Ph.D For any questions, please call customer service at FREQUENCY:MONTHLY Resulting Agency Comment Specimen source: Serum Darren Youssef MD LAB BLOOD ORDERABLES [facility] See order comments or contact performing lab Unknown, [place] * (ABNORMAL) HEMATOLOGY (10/09/2023) Neutrophils 66.0 40.0 - 75.0 % [facility] [...] 10/09/2023 10/10/2023 4:[address] [facility] - 10/10/2023 Unless otherwise specified, test(s) performed at: [email or web address], [address] [place] [address], [place] [address] CONTRACTING SUPPORT SPECIALIST: Rojas Kirkland M.D., Ph.D For any questions, please call customer service at FREQUENCY:MONTHLY Resulting Agency Comment Specimen source: Blood Darren Youssef MD LAB BLOOD ORDERABLES [facility] See order comments or contact performing lab Unknown, [place] * (ABNORMAL) [facility] Chemistry (10/09/2023) PTH 435(H) 16 - 80 pg/mL [facility] 10/09/2023 10/10/2023 4:[address] [facility] - 10/10/2023 Unless otherwise specified, test(s) performed at: [email or web address], [address] [place] [address], [place] [address] CONTRACTING SUPPORT SPECIALIST: Rojas Kirkland M.D., Ph.D For any questions, please call customer service at FREQUENCY:MONTHLY Resulting Agency Comment Specimen source: Plasma Darren Youssef MD LAB BLOOD ORDERABLES Performing Organization Address City/State/[facility] Co nv Phone Number [facility] See order comments or contact performing lab Unknown, [place] documented in this encounter Visit Diagnoses Not on filedocumented in this encounter
--- OUTSIDE RECORDS SUMMARY | 2023-10-13 20:36 | XMS_ITS | Encounter Summary ---
Author Name Unknown Organization [facility] Address [address] [place] [address] Care Team Providers Care Executive Search Consultant Name Role Phone Unavailable Primary Care Provider Unavailabl e Encounter Details Date Type Department Care Team Description 10/05/2023 Orders Only [facility] [address] [place] [address] Darren Youssef MD [address] [place] [address] Social History Tobacco Use Types [...] Date/Time Associated Diagnosis Comments HD KINETICS Routine 10/05/2023 SPECIAL CHEMISTRY Routine 10/05/2023 POST CHEMISTRY Routine 10/05/2023 IMMUNO CHEMISTRY Routine 10/05/2023 TRACE ELEMENTS Routine 10/05/2023 HEMATOLOGY Routine 10/05/2023 CHEMISTRY Routine 10/05/2023 CHEMISTRY Routine 10/05/2023 [facility] RES[facility] Routine 10/05/2023 documented in this encounter Results * [facility] Results (10/05/2023) WSTDKT/V 0.8 [facility] eKt/V ([place]) 1.25 [facility] spKt/V (Daugirdas II) 1.46 [facility] 10/05/2023 10/05/2023 [place] Ordering Provider LAB BLOOD ORDERABLE S [facility] Contact Performing lab Unknown, [place] * HD KINETICS (10/05/2023) Pathologist [facility] % Urea Reduction 71 65 - 80 % [facility] 10/05/2023 10/06/2023 6:3 7 AM CDT Narrative [facility] - 10/06/2023 Unless otherwise specified, test(s) performed at: [facility], [address] [place] [address], [place] [address] STEWARD/STEWARDESS: Rojas Kirkland M.D., Ph.D For any questions, please call customer service at FREQUENCY:MONTHLY Resulting Agency Comment Specimen source: Plasma Darren Youssef MD LAB BLOOD ORDERABLES Performing Organization Address City/[facility]/ZIP Co de Phone Number [facility] See order comments or contact performing lab Unknown, [place] * SPECIAL CHEMISTRY (10/05/2023) Pathologist [facility] Folate >24.0 ng/mL [facility] Comment: Reference Range: Deficient: ?<3.4 ng/mL Indeterminate: ??3.4-5.4 ng/mL Normal: ? >5.4 ng/mL Vitamin B-12 844 211 - 911 pg/mL [facility] Vitamin D, 25-OH, Total 67.7 30.0 - 100.0 ng/mL [facility] Comment: Please Note: ??Effective June 16, 2021, the methodology for this test has changed to the SIEMENS ATELLICA method 10/05/2023 10/06/2023 3:5 6 PM CDT Narrative Resulting Agency Comment Specimen source: Serum Darren Youssef MD LAB BLOOD BANK TEST ORDERABLES [facility] See order comments or contact performing lab Unknown, [place] * (ABNORMAL) [facility] Chemistry (10/05/2023) BUN 77(H) 6 - 19 mg/dL [facility] Creatinine 9.56(H) 0.60 - 1.30 mg/dL [facility] BUN/Creatinine Ratio 8.1(L) 10.0 - 20.0 [facility] Sodium 131(L) 136 - 145 mEq/L [facility] Potassium 4.6 3.5 - 5.1 mEq/L [facility] Chloride 97 96 - 108 mEq/L [facility] Bicarbonate (CO2) 23 20 - 31 mEq/L [facility] Calcium 9.2 8.7 - 10.4 mg/dL [facility] Comment: Please note change in reference range. Corrected Calcium 9.3 8.7 - 10.4 mg/dL [facility] Comment: Corrected Calcium is not equivalent to measured Ionized Calcium. Phosphorus 3.6 2.6 - 4.5 mg/dL [facility] Calcium Phosphorus Product 33 0 - 54 [facility] Calcium Phosporus Product, Cor 33 0 - 54 [facility] Alkaline Phosphatase 110 40 - 129 U/L [facility] Total Protein 7.0 6.0 - 8.5 g/dL [facility] Albumin 3.9 3.5 - 5.2 g/dL [facility] Globulin, Total 3.1 2.0 - 4.0 g/dL [facility] A/G Ratio 1.3 1.0 - 2.0 [facility] Magnesium 2.0 1.6 - 2.6 mg/dL [facility] Ferritin 927(H) 22 - 322 ng/mL [facility] Iron 76 45 - 160 mcg/dL [facility] UIBC 134(L) 155 - 355 mcg/dL [facility] TIBC 210 185 - 515 mcg/dL [facility] Iron Saturation (TSat) 36 20 - 55 % [facility] 10/05/2023 10/06/2023 3:5 6 PM CDT Narrative [facility] - 10/06/2023 Unless otherwise specified, test(s) performed at: [facility], [address] [place] [address] [place] [address] STEWARD/STEWARDESS: Rojas Kirkland M.D., Ph.D For any questions, please call customer service at FREQUENCY:MONTHLY Resulting Agency Comment Specimen source: Serum Darren Youssef MD LAB BLOOD ORDERABLES Performing Organization Address [facility] de Phone Number [facility] See order comments or contact performing lab Unknown, [place] * TRACE ELEMENTS (10/05/2023) Aluminum 8 0 - 10 mcg/L [facility] Comment: This test was developed and its performance characteristics determined by [facility]. It has not been cleared or approved by the FDA. The laboratory is regulated under CLIA as qualified to perform high complexity testing. This test is used for clinical purposes. It should not be regarded as investigational or for research. 10/05/2023 10/06/2023 6:3 1 AM CDT Narrative [facility] - 10/06/2023 Unless otherwise specified, test(s) performed at: [facility], [address] [place] [address] STEWARD/STEWARDESS: Rojas Kirkland M.D., Ph.D For any questions, please call customer service at FREQUENCY:MONTHLY Resulting Agency Comment Specimen source: Serum Darren Youssef MD LAB BLOOD ORDERABLES Performing Organization Address [facility] de Phone Number [facility] See order comments or contact performing lab Unknown, [place] * (ABNORMAL) HEMATOLOGY (10/05/2023) Pathologist [facility] Neutrophils 71.8 40.0 - 75.0 % [facility] Lymphocytes Relative 13.5(L) 19.0 - 48.0 % [facility] Monocytes 9.6 3.0 - 10.0 % [facility] Eosinophils Relative 2.3 0.0 - 7.0 % [facility] Basophils Relative 0.7 0.0 - 1.5 % [facility] COURTNEY 2.1 0.0 - 4.0 % [facility] WBC 6.34 4.80 - 10.80 1000/mcL [facility] RBC 3.06(L) 4.70 - 6.10 mill/mcL [facility] Hematocrit 30.5(L) 42.0 - 52.0 % [facility] MCV 100 80 - 100 fl [facility] MCH 32.8(H) 27.0 - 31.0 pg [facility] MCHC 32.9 30.0 - 36.0 g/dL [facility] RDW 15.3(H) 11.5 - 14.5 % [facility] Hemoglobin 10.0(L) 14.0 - 18.0 g/dL [facility] Hemoglobin x 3 30.0(L) 42.0 - 54.0 % [facility] Platelets 147 130 - 400 1000/mcL [facility] 10/05/2023 10/06/2023 6:2 0 AM CDT Narrative [facility] - 10/06/2023 Unless otherwise specified, test(s) performed at: [facility], [address] [place] [address], [place] [address] STEWARD/STEWARDESS: Rojas Kirkland M.D., Ph.D For any questions, please call customer service at FREQUENCY:MONTHLY Resulting Agency Comment Specimen source: Blood Darren Youssef MD LAB BLOOD ORDERABLES [facility] See order comments or contact performing lab Unknown, [place] * IMMUNO CHEMISTRY (10/05/2023) Hep B Surface Ag Negative Negative [facility] Hepatitis B Surface Ab 14 mIU/mL [facility] Comment: The anti-HBs (Hepatitis B surface antibody) is greater than or equal to 10 mIU/mL and implies immunity. The patient has either had an antibody response to HBV vaccination, received a transfusion, or has recovered from HBV infection. For post-vaccination antibody testing guidelines for the general public, refer to MMWR May 30, 2005/Vol.54 (No. 16); -23, and for healthcare workers, refer to MMWR May 27, 2013/Vol.62 (No. 10); 1-18. Reference Range: <10 mIU/mL ? Non-Immune >=10 mIU/mL ?Immune The magnitude of the measured result above 10 mIU/mL is not indicative of the total amount of antibody present. Hep B Core Total Ab Negative Negative [facility] Comment: Hep B Core Ab, Total appears during the acute infection stage and remains reactive/positive throughout the recovery stage. The above test result was obtained using Atell[employer] IM chemiluminescent method. Results obtained with different assay methods or kits cannot be used interchangeably. Hepatitis C Antibody Nonreactive Nonreactive [facility] Comment: No HCV antibody detected. The above test result was obtained using Atell[employer] IM chemiluminescent method. Results obtained with different assay methods or kits cannot be used interchangeably. S/CO Ratio 0.06 0.00 - 0.79 [facility] Comment: s/co ratio ?Interpretation ?Supplemental testing <0.80 ? Nonreactive ? No further testing required. 0.80-0.99 ? Equivocal ? HCV RNA Quantitative Real-Time PCR is recommended. 1.00->11.00 ?? Reactive ?HCV RNA Quantitative Real-Time PCR is recommended to distinguish active from resolved cases. 10/05/2023 10/06/2023 8:2 3 AM CDT Narrative Resulting Agency Comment Specimen source: Plasma Darren Youssef MD LAB BLOOD ORDERABLES [email or web address] See order comments or contact performing lab Unknown, [place] * (ABNORMAL) [facility] (10/05/2023) PTH 323(H) 16 - 80 pg/mL [facility] 10/05/2023 10/06/2023 8:2 3 AM CDT Narrative [facility] - 10/06/2023 Unless otherwise specified, test(s) performed at: [facility], [address] [place] [address], [place] [address] STEWARD/STEWARDESS: Rojas Kirkland M.D., Ph.D For any questions, please call customer service at FREQUENCY:MONTHLY Resulting Agency Comment Specimen source: Plasma Darren Youssef MD LAB BLOOD ORDERABLES Performing Organization Address [facility] Co de Phone Number [facility] See order comments or contact performing lab Unknown, [place] * (ABNORMAL) POST CHEMISTRY (10/05/2023) BUN Post Dialysis 22(H) 6 - 19 mg/dL [facility] 10/05/2023 10/06/2023 6:3 7 AM CDT Narrative [facility] - 10/06/2023 Unless otherwise specified, test(s) performed at: [facility], [address] [place] [address], [place] [address] STEWARD/STEWARDESS: Rojas Kirkland M.D., Ph.D For any questions, please call customer service at FREQUENCY:MONTHLY Resulting Agency Comment Specimen source: Plasma Darren Youssef MD LAB BLOOD ORDERABLES Performing Organization Address [facility] Co de Phone Number [facility] See order comments or contact performing lab Unknown, [place] documented in this encounter Visit Diagnoses Not on filedocumented in this encounter"
--- OUTSIDE RECORDS SUMMARY | 2023-10-13 20:36 | XMS_ITS | Data Portability ---
Author Name Unknown Address [address] [place] [address] Phone [phone] Organization [facility] Address [address] [place] [address] Assessment No assessment recorded. Plan of Treatment [...] Name and Address Organization Details Recorded Time 00686 Lipitor medicatio n other Not available Not available 08/03/2020 93681 5 RxNorm leg cramp ing Xiao Salas [facility], [place] [facility] 18:19:27 07363 lisinopri l medicatio n Not available Not available Not available 08/03/2020 71351 RxNorm Xiao Salas [place], [place] [facility] 18:19:46 39012 omeprazol e medicatio n diarrhea Not available Not available 08/03/2020 7646 RxNorm Xiao Salas [facility], [place] [facility] 18:19:58 71000 metoclopr amide Not available Not available Not available Not available 08/03/2020 6915 RxNorm Xiao Salas [facility], [place] [facility] 18:20:17 Medications Not known to be on any medication Vitals Date Recorded Body temperature Provider Name a nd Address Organization Details Last Updated DateTime 08/03/2020 97.5 [degF] Xiao Salas [facility], [place] [facility] 08/03/2020 18:18:56 Social History None recorded. Functional Status None recorded. Mental Status None recorded. Family History Nothing Reported. Medical History No medical history recorded. Immunizations Vaccine Type Date Status Provider Name and Address Organization Details Recorded Time COVID-19, mRNA, LNP-S, PF, 30 mcg/0.3 mL dose 08/03/2020 completed jorge maynard [facility], [place] [facility] 08/03/2020 18:23:43 COVID-19, mRNA, LNP-S, PF, 30 mcg/0.3 mL dose 08/23/2020 completed Tiffanie Rodríguez [facility], 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) [address] [place] [address] 08/23/2020 15:11:25 11/21/2020 07:30:32 Administration of SARS-CoV-2 antigen vaccine [id number] Health Concerns Section Related Observation LastModified by Organization Detai ls LastModified Time None Recorded Concern Status LastModified by Organization Details LastModified Time None Recorded Advance Directives Directive None Recorded Payers Encounter Date Sequence Insurance Name Policy Number Policy Blanchard Covered Member ID Blanchard Member ID Guarantor Name 08/23/2020 1 [place] [employer] Korey Mackay [id number] Korey Mackay 08/03/2020 1 [place] [employer] Korey Mackay [id number] 3 Korey Mackay
--- OUTSIDE RECORDS SUMMARY | 2023-10-13 20:36 | XMS_ITS | Clinical Summary ---
Author Name Unknown Organization [facility] Address [place], [place] [address] Care Team Providers Care Oracle E Business Developer Name Role Phone Anna Marie Oglesby Primary Care Provider [phone] [facility] [place] Unavailable Allergies Active Allergy Reactions Criticality Noted [...] 10 mg by mouth once daily. 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 Overview: Status post [...] as uncontrolled 09/20/2007 Cough 07/16/2006 Hypervolemia 08/07/2016 Encounters Date Type Department Care Team Description 10/13/2023 1:30 PM CDT Office Visit [facility] [address] [place] [address] Patricia Nichols MD Consult (Perianal abcess) 10/13/2023 Travel from Last 3 Months Immunizations Name Administration Dates Next Due COVID-19 vaccine (Pfizer-Bio NTech 30mcg/0.3mL) 12YO+ BIVALENT PF, MDV 03/17/2022 COVID-19 vaccine (Pfizer-Bio NTech 30mcg/0.3mL) 12YO+ ALY-SUCROSE PF, MDV 10/10/2021 COVID-19 vaccine (Pfizer-Bio NTech 30mcg/0.3mL) PF, MDV 04/04/2021,08/23/2020,08/03/2020 Hep B (Hepatitis B (Adult) Recombinant Adjuvanted) 03/25/2021,01/28/2021,12/31/2020,2020 Influenza Virus, Unspecified 03/10/2022, 03/09/2021,04/22/2019,2013,03/23/2013,04/02/2012,04/04/2011,1 ,02/16/2009,03/08/2007, 006,04/10/2005,03/27/2004,04/08/2003 Influenza, High-dose Inactivated 02/18/2016,1109/2014 Influenza, High-dose Quadriv alent Inactivated 03/14/2022,03/08/2021 Influenza, [...] Sign Reading Time Taken Comments Blood Pressure 113/58 10/13/2023 1:39 PM CDT Pulse 71 10/13/2023 1:39 PM CDT Temperature 36.9 ??C (98.4 ??F) 2023 10:49 AM C DT Respiratory Rate 16 03/03/2023 12:37 PM CDT Oxygen Saturation 99% 10/13/2023 1:39 PM CDT Inhaled Oxygen Concentration - - Weight 93.9 kg (207 lb) 10/13/2023 1:39 PM CDT Height 182.9 cm (6') 03/03/2023 12:37 PM CDT Body Mass Index 28.07 03/03/2023 12:37 PM CDT Plan of Treatment Upcoming Encounters Date Type Department Care Team (Late st Contact Info) Description 10/14/2023 3:00 PM CDT Office Visit [facility] [address] [place] [address] Anna Marie Oglesby, DO [address] [place] [address] 10/20/2023 2:00 PM CDT Office Visit [facility] [address] [place] [address] Patricia Nichols MD [address] [place] [address] 11/19/2023 Cardiac Device Check [facility] [place] [facility] [phone] 01/19/2024 1:00 PM CDT Cardiac Device Check [facility] [place] [facility] [address] [place] [phone] Health Maintenance Due Date Last Done Comments Pneumococcal series for age 65+ (3 of 3 - PPSV23 or PCV20) 06/06/2015 04/11/2015, 03/23/2013, 08/25/2003, Additional history exists COVID-19 vaccine series (2022- season) 2023 03/17/2022, 10/10/2021, 04/04/2021, Additional history [...] 12/18/2022, 06/29/2012 Medical Devices Implanted Type Area Storage Administrator Device Identifier Shelf Expiration Date Model / Serial / Lot Screw Sm Joint 3.5x80mm Os Slf Tppng Bob - [id number] Implanted:Qty: 1 on 04/15/2015 by Rj Bui MD at [facility] Left: Leg [employer] [id number]# / / Screw Sm Joint 4x85mm Axsos Lock Slf Tppng [address] - [id number] Implanted:Qty: 1 on 04/15/2015 by Rj Bui MD at [facility] Left: Leg [employer] [id number]# / / Screw Sm Joint 3.5x75mm Os Slf Tppng Bob - [id number] Implanted:Qty: 1 on 04/15/2015 by Rj Bui MD at [facility] Left: Leg [employer] [id number]# / / Screw Sm Joint 3.5x85mm Os Slf Tppng Bob - [id number] Implanted:Qty: 1 on 04/15/2015 by Rj Bui MD at [facility] Left: Leg [employer] [id number]# / / Plate Tib Lt 10 Hole Axsos Prox Lateral - [id number] Implanted:Qty: 1 on 04/15/2015 by Rj Bui MD at [facility] Left: Leg [employer] [id number]# / / Screw Sm Joint 3.5x28mm Os Slf Tppng Bob - [id number] Implanted:Qty: 1 on 04/15/2015 by Rj Bui MD at [facility] Left: Leg [employer] [id number]# / / Screw Sm Joint 3.5x30mm Os Slf Tppng Bob - [id number] Implanted:Qty: 1 on 04/15/2015 by Rj Bui MD at [facility] Left: Leg [employer] [id number]# / / Screw Sm Joint 3.5x32mm Os Slf Tppng Bob - [id number] Implanted:Qty: 1 on 04/15/2015 by jR Bui MD at [facility] Left: Leg [employer] [id number]# / / Screw Sm Joint 4x26mm Axsos Lock Slf Tppng [address] - [id number] Implanted:Qty: 1 on 04/15/2015 by Rj Bui MD at [facility] Left: Leg [employer] [id number]# / / Explanted Type Area Storage Administrator Device Identifier Shelf Expiration Date Model / Serial / Lot K-Wire [employer] 10pk - [id number] Explanted:Qty: 2 on 04/15/[address] 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
--- OUTSIDE RECORDS SUMMARY | 2023-10-13 20:36 | XMS_ITS | Clinical Summary ---
Author Name Unknown Organization [facility] Address [address] [place] [address] Phone Care Team Providers Care Lever Tender Name Role Phone Pcp, None MD Primary Care Provider Unavailabl e Allergies Active [...] Comments Blood Pressure 155/68 07/24/2020 5:30 PM SUPERVISOR COLD ROLLING Pulse 73 07/24/2020 5:30 PM SUPERVISOR COLD ROLLING Temperature 36.7 ??C (98 ??F) 07/24/2020 5:15 PM SUPERVISOR COLD ROLLING Respiratory Rate 20 07/24/2020 5:30 PM SUPERVISOR COLD ROLLING Oxygen Saturation 98% 07/24/2020 5:30 PM SUPERVISOR COLD ROLLING Inhaled Oxygen Concentration - - Weight 102 kg (224 lb) 07/24/2020 8:00 AM SUPERVISOR COLD ROLLING Height 182.9 cm (6') 07/24/2020 8:00 AM SUPERVISOR COLD ROLLING Body Mass Index 30.38 07/24/2020 8:00 AM SUPERVISOR COLD ROLLING Plan of Treatment Not on file Care Teams Lever Tender Relationship Specialty Start Date End Date Pcp, None, PCP - General 07/24/20
--- OUTSIDE RECORDS SUMMARY | 2023-10-13 20:36 | XMS_ITS | Continuity of Care Document ---
Author Name Unknown Organization [facility] Address [address] [address] [place] [address] Phone Care Team Providers Care Survey And Mapping Technician Name Role Phone Unavailable Unavailable Unavailable Advance Directives Directive Yes / No Effective Date File Name No Information Encounters Encounter Description Practice Location Reason(s) For Visit Diagnoses Date Provider Providers Copied on Encounter [facility], [address] [address], [place], [place], [id number], [place] tel:[phone] [facility] No Information Aug-201 8 No [...]
--- OUTSIDE RECORDS SUMMARY | 2023-10-13 20:37 | XMS_ITS | Continuity of Care Document ---
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
--- OUTSIDE RECORDS SUMMARY | 2023-10-13 20:45 | XMS_ITS | Continuity of Care Document ---
Author Name [facility] Organization [facility] Care Team Providers Care Greensman Name Role Phone [facility] Unavailable Unavailable Problems Combined list of problems from Department of Defense and Veterans 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 It does not include entries that were removed or entered in error. Problem Status Onset Date Problem Type Date of Resolution Comments Source Adenoma of large intestine Active Condition Jan 17, 2005 Entered By: TOMMY SARMIENTO Comment: colonoscopy and polypectomy 12/10, tubular adenoma at [facility] Cataract, Senile, Unsp Active Condition [facility] Chronic cough Active Condition [facility] Chronic obstructive lung disease Active Condition [facility] Chronic rhinitis Active Condition [facility] Coronary arteriosclerosis Active Condition Nov 10 7 Entered By: LIZZETTE WEI Comment: s/p [id number] at [facility] in 07/15 [facility] Diabetes mellitus Active Condition [facility] Diabetic neuropathy Active Condition [facility] Diabetic renal disease Active Condition Dec 02, 2018 Entered By: CARLOS DALTON Comment: 10/2018: started hemodialysis @ [facility] 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 [facility] Dyslipidemia Active Condition [facility] End-stage renal disease Active Condition [facility] Essential hypertension Active Condition [facility] Exposure to potentially hazardous substance Active Condition Dec 18, 2022 Entered By: CORRINE MATHEWS Comment: Asbestos [facility] Ganglion of wrist Active Condition [facility] Gastroesophageal reflux disease without esophagitis Active Condition [facility] Hemorrhoid Active Condition [facility] Hyperparathyroidism due to renal insufficiency Active Condition [facility] Hypothyroidism Active Condition [facility] Indwelling catheter inserted Active Condition [facility] Obstructive Sleep Apnea of Adult (SCT [id number]) Active Condition October 28, 2022 Entered By: KINGS ROCHA Comment: APAP: 10-20, Ramp: 5x10 min, [place] [facility] Oropharyngeal dysphagia Active Condition Dec 14, 2022 Entered By: CORRINE MATHEWS Comment: 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 [facility] Psoriasis Nos [facility] 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 care - 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 and GP Active Condition Dec 02 Entered By: CARLOS DALTON Comment: [facility] [phone] ov 2020 Entered By: CARLOS DALTON Comment: [employer]: Dr James Pérez [phone] ov 2020 Entered By: CARLOS DALTON Comment: [facility] Cough (ICD-9-CM 786.2) Inactive Condition 03/23/2013 [facility] Diabetic Foot Ulcer (ICD-9-CM 250.80/707.8) Inactive Condition 03/23/2013 [facility] Diagnosis: ICD-10-CM H04.129 Dry eye syndrome of unspecified lacrimal gland Active Diagnosis [facility] Diagnosis: ICD-10-CM Z46.1 Encounter for fitting and adjustment of hearing aid Active Diagnosis [facility] Diagnosis: ICD-10-CM N18.6 End stage renal disease Active Diagnosis [facility] Diagnosis: ICD-10-CM R26.9 Unspecified abnormalities of gait and mobility Active Diagnosis [facility] Diagnosis: ICD-10-CM J44.9 Chronic obstructive pulmonary disease, unspecified [facility] Diagnosis: ICD-10-CM Z65.8 Oth problems related to psychosocial circumstances Active Diagnosis [facility] Diagnosis: ICD-10-CM R05.3 Chronic cough Active Diagnosis [facility] JERRY [facility] Diagnosis: ICD-10-CM G47.33 Obstructive sleep apnea (adult) (pediatric) Active Diagnosis [facility] Medications Combined list of outpatient medications from [...] (FOR IMMEDIAT E RELIEF). INHALA TION 08/21/2023 [id number] 4 CASANDRA DALTON 2022 2 [facility] AZELASTINE HCL 137MCG/SPRA Y INHL,NASAL, 30ML SPRAY 1 PUFF IN EACH NOSTRIL TWICE A DAY FOR NASAL SYMPTOMS NASAL ACTIVE 01/13/2024 [id number] 3 RODRÍGUEZ MATHEWS 2022 2 [facility] CALCIUM CARBONATE TAB,CHEWABL E CHEW ONE TABLET BY MOUTH FOUR TIMES A DAY NEEDED ORALLY ACTIVE RODRÍGUEZ MATHEWS 2022 [facility] COENZYME Q10 CAP/TAB TAKE ONE TABLET BY MOUTH EVERY DAY ORALLY ACTIVE CASANDRA DALTON 2012 [facility] CYCLOSPORIN E 0.05% (PF) EMULSION,OP H,0.4ML INSTILL 1 DROP BOTH EYES TWICE A DAY BOTH EYES ACTIVE 08/10/2024 [id number] 4 FB-PURFEE RST,MATHEW OD 2023 60 [facility] CYCLOSPORIN E 0.05% (PF) EMULSION,OP H,0.4ML INSTILL 1 DROP BOTH EYES TWICE A DAY BOTH EYES 03/25/2023 [id number] 3 FB-PURFEE RST,MATHEW OD 2021 60 [facility] DEXTROMETHO RPHAN HBR 10MG/GUAIFE NESIN 100MG/5ML (AF & SF) LIQUID TAKE 1 TEASPOON FUL BY MOUTH EVERY 4 HOURS NEEDED FOR COUGH AND CONGESTI ON ORALLY ACTIVE 03/09/2024 [id number] 4 RODRÍGUEZ MATHEWS 2022 120 [facility] DIALYVITE TAB TAKE 1 TABLET BY MOUTH EVERY DAY ORALLY ACTIVE 07/02/2024 [id number] 4 RODRÍGUEZ MATHEWS 2023 100 [facility] DIALYVITE TAB TAKE 1 TABLET BY MOUTH EVERY DAY ORALLY DISCONT INUED 09/10/2023 [id number] 4 RODRÍGUEZ MATHEWS 2022 100 [facility] DM 10/GUAIFENE SN 100MG/5ML (ALC-F/SF)S YR TAKE 5 ML (1 TEASPOON FUL) BY MOUTH EVERY 8 HOURS NEEDED FOR COUGH ORALLY DISCONT INUED 08/21/2023 [id number] 3 CASANDRA DALTON 2022 360 [place] [facility] FLUTICASONE 250MCG/SALM ETEROL 50MCG INHL,ORAL,D ISKUS,60 INHALE 1 PUFF BY INHALATI ON TWICE A DAY TO PREVENT TROUBLE BREATHIN G -RINSE MOUTH AFTER USING INHALA TION 09/23/2023 [id number] 4 RODRÍGUEZ MATHEWS 2022 3 [facility] HYDROCORTIS ONE 2.5% CREAM,TOP APPLY THIN LAYER TOPICALL Y EVERY DAY NEEDED HEMORRHO ID TOPICA LLY 01/09/2023 [id number] 3 RODRÍGUEZ MATHEWS 2022 30 [facility] INSULIN,ASP ART,HUMAN (EQV-NOVOLO G) 100 UNIT/ML,FLE XPEN,3ML INJECT 5 UNITS UNDER THE SKIN TWICE A DAY TO DECREASE BLOOD SUGAR-- INJECT IMMEDIAT LINDA BEFORE MEAL (PEN FILL APPROVED ) REPLACES REGULAR INSULIN PEN SUBCUT ANEOUS 05/13/2023 [id number] 3 RODRÍGUEZ MATHEWS 2021 5 [facility] INSULIN,GLA RGINE,HUMAN 100 UNIT/ML INJ,SOLOSTA R,3ML INJECT 18 UNITS UNDER THE SKIN EVERY DAY FOR DIABETES DISCAR D PEN 28 DAYS AFTER INITIAL USE SUBCUT ANEOUS DISCONT INUED 05/13/2023 [id number] 3 RODRÍGUEZ MATHEWS 2021 5 [facility] INSULIN,GLA RGINE,HUMAN 100 UNIT/ML INJ,SOLOSTA R,3ML INJECT 18 UNITS UNDER THE SKIN EVERY DAY FOR DIABETES DISCAR D PEN 28 DAYS AFTER INITIAL USE SUBCUT ANEOUS DISCONT INUED (EDIT) 06/06/2024 [id number] 4 RODRÍGUEZ MATHEWS 2023 5 [facility] INSULIN,GLA RGINE-YFGN 100UNIT/ML INJ PEN,3ML INJECT 18 UNITS UNDER THE SKIN EVERY DAY FOR DIABETES DISCAR D PEN 28 DAYS AFTER INITIAL USE SUBCUT ANEOUS ACTIVE 06/09/2024 [id number] 4 RODRÍGUEZ MATHEWS 2023 5 [facility] LEVOTHYROXI NE NA 175MCG TAB (SYNTHROID) TAKE ONE TABLET BY MOUTH EVERY DAY FOR THYROID ORALLY DISCONT INUED 08/01/2023 [id number] 3 RODRÍGUEZ MAHTEWS 2022 90 [place] [facility] LEVOTHYROXI NE NA 175MCG TAB (SYNTHROID) TAKE ONE TABLET BY MOUTH EVERY DAY FOR THYROID ORALLY DISCONT INUED 07/30/2023 [id number] 3 RODRÍGUEZ MATHEWS 2022 90 [place] [facility] LEVOTHYROXI NE NA 200MCG TAB (SYNTHROID) TAKE ONE TABLET BY MOUTH EVERY DAY FOR THYROID ORALLY ACTIVE 01/13/2024 [id number] 4 RODRÍGUEZ MATHEWS 2022 90 [place] [facility] LORATADINE 10MG TAB TAKE ONE TABLET BY MOUTH EVERY DAY NEEDED ORALLY ACTIVE RODRÍGUEZ MATHEWS 2022 [place] [facility] MARINE LIPID (FISH OIL) CAP,ORAL TAKE 1200MG BY MOUTH EVERY DAY ORALLY ACTIVE CASANDRA DALTON 2010 [place] [facility] MONTELUKAST NA 10MG TAB TAKE ONE TABLET BY MOUTH EVERY DAY ORALLY ACTIVE 05/08/2024 [id number] 4 CASANDRA DALTON 2022 90 [place] [facility] MONTELUKAST NA 10MG TAB TAKE ONE TABLET BY MOUTH EVERY DAY ORALLY DISCONT INUED 05/01/2023 [id number] 3 CASANDRA DALTON 2021 90 [place] [facility] NITROGLYCER IN 0.4MG TAB,SUBLING UAL DISSOLVE ONE TABLET UNDER THE TONGUE PRN SUBLIN GUAL ACTIVE CASANDRA DALTON 2010 [place] [facility] PANTOPRAZOL E NA 40MG TAB,EC TAKE ONE TABLET BY MOUTH EVERY DAY ONE-HALF HOUR BEFORE EATING. ORALLY ACTIVE 07/02/2024 [id number] 4 CASANDRA DALTON 2023 90 [facility] PANTOPRAZOL E NA 40MG TAB,EC TAKE ONE TABLET BY MOUTH EVERY DAY ONE-HALF HOUR BEFORE EATING. ORALLY DISCONT INUED 05/29/2023 [id number] 3 CASANDRA DALTON 2022 90 [facility] PRAVASTATIN NA 40MG TAB TAKE ONE TABLET BY MOUTH AT BEDTIME FOR CHOLESTE ROL ORALLY ACTIVE 06/06/2024 [id number] 4 RODRÍGUEZ MATHEWS 2023 90 [place] [facility] PRAVASTATIN NA 40MG TAB TAKE ONE TABLET BY MOUTH AT BEDTIME FOR CHOLESTE ROL ORALLY DISCONT INUED 06/05/2024 [id number] 3 CASANDRA DALTON 2022 90 [facility] PRAVASTATIN NA 40MG TAB TAKE ONE TABLET BY MOUTH AT BEDTIME FOR CHOLESTE ROL ORALLY DISCONT INUED 05/29/2023 [id number] 3 CASANDRA DALTON 2021 90 [place] [facility] TIOTROPIUM 2.5MCG/ACTU AT INHL,ORAL,6 0D,4GM INHALE TWO PUFFS BY INHALATI ON EVERY DAY FOR ASTHMA INHALA TION ACTIVE 08/26/2024 [id number] 4 ZULETA,HI NA 2023 1 [place] [facility] TIOTROPIUM 2.5MCG/ACTU AT INHL,ORAL,6 0D,4GM INHALE TWO PUFFS BY INHALATI ON EVERY DAY FOR ASTHMA INHALA TION DISCONT INUED 10/29/2023 [id number] 4 ZULETA,HI NA 2022 1 [place] [facility] VANICREAM APPLY THIN LAYER TOPICALL Y EVERY DAY FOR DRY SKIN TOPICA LLY ACTIVE 12/19/2023 [id number] RODRÍGUEZ MATHEWS H 2022 1362 [place] [facility] VANICREAM APPLY TO DRY SKIN TOPICALL Y EVERY DAY NEEDED FOR DRY SKIN TOPICA LAUREN TOUSSAINT INUED 05/01/2023 [id number] 3 SHA CASANDRA 2021 908 [facility] VITAMIN E 400UNT CAP TAKE 1 CAPSULE BY MOUTH EVERY DAY ORALLY ACTIVE [facility] 2013 [facility] ZINC SULFATE TAB TAKE 50MG BY MOUTH EVERY DAY ORALLY ACTIVE [facility] 2014 [facility] Allergies, Adverse Reactions, Alerts Combined list of allergies from Department of [facility] and [facility] facilities. It does not include entries that were removed or entered in error. Substance Category Reaction Severity Reaction type Status Date Reported Comments Source ATORVASTATIN Propensity to adverse reactions to drug (finding) Pain in lower limb active 9 [facility] DOXYCYCLINE Propensity to adverse reactions to drug (finding) PRURITIS, Eruption active 4 [facility] HYDROCODONE Propensity to adverse reactions to drug (finding) Disorientat ed, Drowsy, Hallucinati ons active 3 [facility] LIPITOR Propensity to adverse reactions to drug (finding) Cramp active 0 [facility] LISINOPRIL Propensity to adverse reactions to drug (finding) Abdominal discomfort active 7 [facility] METOCLOPRAMI DE Propensity to adverse reactions to drug (finding) Gynecomasti a active 0 [facility] OMEPRAZOLE Propensity to adverse reactions to drug (finding) Diarrhea active 0 [facility] SIMVASTATIN Propensity to adverse reactions to drug (finding) MUSLCE CRAMPS active 4 [facility] Immunizations Combined list of available immunizations from the Department of [facility] and [facility] facilities. Immunization Series Date Given Administered By Site Reaction Lot Number CVX Code Drug Ui Engineer Status Comments Source TDAP 2022 [facility] RIGHT DELTO ID [id number] 115 complet ed [facility] INFLUENZA, UNSPECIFIED FORMULATION 2021 88 complet ed [facility] INFLUENZA, UNSPECIFIED FORMULATION 2020 88 complet ed [facility] ZOSTER RECOMBINANT 2 04/13/ 2021 187 complet ed [facility] ZOSTER RECOMBINANT 1 2019 187 complet ed [facility] INFLUENZA, SEASONAL, INJECTABLE, PRESERVATIVE FREE 2019 140 complet ed [facility] INFLUENZA, UNSPECIFIED FORMULATION 2018 88 complet ed [facility] INFLUENZA, SEASONAL, INJECTABLE, PRESERVATIVE FREE 2017 140 complet ed [facility] INFLUENZA, HIGH DOSE SEASONAL 2016 135 complet ed [facility] INFLUENZA, HIGH DOSE SEASONAL 2014 135 complet ed [facility] PNEUMOCOCCAL CONJUGATE PCV 13 2014 133 complet ed Wyeth [id number] 08/22 [facility] INFLUENZA, UNSPECIFIED FORMULATION 2013 88 complet ed [facility] INFLUENZA, UNSPECIFIED FORMULATION 2012 88 complet ed [facility] PNEUMOCOCCAL, UNSPECIFIED FORMULATION 2012 109 complet ed [employer], [id number], [facility] TDAP 2012 115 complet ed [facility] TDAP 2012 115 complet ed [facility] ZOSTER LIVE 2012 121 complet ed [employer] Lot#[id number] 14 [facility] INFLUENZA, UNSPECIFIED FORMULATION 2011 88 complet ed [facility] INFLUENZA, UNSPECIFIED FORMULATION 2010 88 complet ed [facility] INFLUENZA, UNSPECIFIED FORMULATION 2009 88 complet ed [facility] INFLUENZA, UNSPECIFIED FORMULATION 2008 88 complet ed [facility] TD(ADULT) UNSPECIFIED FORMULATION 2007 139 complet ed [facility] INFLUENZA (HISTORICAL) 2006 88 complet ed [facility] INFLUENZA (HISTORICAL) 2005 88 complet ed [facility] INFLUENZA, UNSPECIFIED FORMULATION 2004 88 complet ed [facility] INFLUENZA, UNSPECIFIED FORMULATION 2003 88 complet ed [facility] PNEUMOCOCCAL, UNSPECIFIED FORMULATION 2003 109 complet ed [facility] TD(ADULT) UNSPECIFIED FORMULATION 2003 139 complet ed due next year [facility] INFLUENZA (HISTORICAL) 2002 88 complet ed pt states he had a Influenza vaccinati on this yr [facility] TD(ADULT) UNSPECIFIED FORMULATION 1994 139 complet ed [facility] Vital Signs Combined list of inpatient and [...] DC Date Status Disposition Source [place] [facility] Outpatient Encounter [id number] 04/25 [facility] [place] [facility] Outpatient Encounter [id number] 04/25 [facility] [place] [facility] Outpatient Encounter [id number] 05/06 [facility] [place] [facility] Outpatient Encounter [id number] 05/08 [facility] CASE MANAGEMENT [id number] JENNIFER THAPA CCA 05/13 [facility] Outpatient Encounter [id number] 05/20 [facility] [place] [facility] Outpatient Encounter [id number] 06/03 [facility] [place] [facility] Outpatient Encounter [id number] 06/04 [facility] Outpatient Encounter [id number] 06/05 [facility] [place] [facility] Outpatient Encounter [id number] 06/08 [facility] [place] [facility] Outpatient Encounter [id number] 06/08 [facility] [place] [facility] Outpatient Encounter [id number] 06/23 [place] [facility] [place] [facility] Outpatient Encounter [id number] 08/06 [place] [facility] [place] [facility] Outpatient Encounter [id number] 08/11 [place] [facility] [place] [facility] Outpatient Encounter [id number] 08/11 [place] [facility] [place] [facility] Outpatient Encounter [id number] 08/14 [place] [facility] [place] [facility] HC PRO PHONE CALL 5-10 MIN [id number] Diagnos is: ICD-10- CM G47.33 Obstruc tive sleep apnea (adult) (pediat jocelynn)
KARON YOUNG 08[facility]15 [facility] En[facility] [id number] 08/26 [facility] [place] [facility] Outpatient Encounter [id number] 10/27 [place] [facility] [place] [facility] PT EDUCATION NOC INDIVID [id number] Diagnos is: ICD-10- CM G47.33 Obstruc tive sleep apnea (adult) (pediat jocelynn)
KINGS ROCHA 10/28 [place] [facility] [place] [facility] Outpatient Encounter [id number] 11/05 [place] [facility] [place] [facility] Outpatient Encounter [id number] 11/26 [place] [facility] [place] [facility] Outpatient Encounter [id number] MARY ELLEN MAY 12/10 [place] [facility] [place] [facility] Outpatient Encounter [id number] 12/10 [facility] [place] [facility] Outpatient Encounter [id number] 12/10 [facility] OFFICE O/P EST HI 40-54 MIN [id number] Diagnos is: ICD-10- CM R05.3 Chronic cough<b r/> BISIS ALLY H 12/18 [facility] [place] [facility] Outpatient Encounter [id number] 01/07 [facility] Outpatient Encounter [id number] 02/05 [facility] Outpatient Encounter [id number] 02/11 [facility] PRO PHONE CALL 21-30 MIN [id number] Diagnos is: ICD-10- CM Z65.8 Oth problem s related to psychos ocial circums tances< br/> VESNA GRAY 02/11 [facility] Outpatient Encounter [id number] DEBRA PINTO 02/18 [facility] IS [facility] SELF CARE MNGMENT TRAINING [id number] Diagnos is: ICD-10- CM J44.9 Chronic obstruc tive pulmona ry disease , unspeci fied
MAGGIE EVANS A 02/19 [facility] Outpatient Encounter [id number] 03/03 [facility] Outpatient Encounter [id number] Diagnos is: ICD-10- CM R26.9 Unspeci fied abnorma lities of gait and mobilit y
NANCY HOWARD 03/04 [facility] Outpatient Encounter [id number] 03/06 [place] [facility] [place] [facility] Outpatient Encounter [id number] 03/26 [place] [facility] [place] [facility] TARGETED CASE MANAGEMENT [id number] Chani PERAZA L 05/04 [place] [facility] [place] [facility] HC PRO PHONE CALL 5-10 MIN [id number] Diagnos is: ICD-10- CM N18.6 End stage renal disease
FADUMO HERNANDEZ 05/05 [place] [facility] [place] [facility] TARGETED CASE MANAGEMENT [id number] Chani PERAZA 05/05 [facility] [place] [facility] TARGETED CASE MANAGEMENT [id number] Chani PERAZA 05/13 [facility] CASE MANAGEMENT [id number] JENNIFER THAPA CCA 05/13 [facility] Outpatient Encounter [id number] 05/13 [facility] Outpatient Encounter [id number] GUADALUPE ACOSTA 05/14 [facility] CASE MANAGEMENT [id number] Chani PERAZA 05/19 [place] [facility] Encounter [id number] 05/19 [facility] Outpatient Encounter [id number] Chani PERAZA 05/27 [facility] Out[facility] Encounter [id number] 05/28 [facility] Outpatient Encounter [id number] 05/28 [facility] Outpatient Encounter [id number] ANSELMO ARMSTRONG NANCY A 06/02 [facility] Outpatient Encounter [id number] 06/02 [facility] Outpatient Encounter [id number] DARRELL LOO 06/17 [facility] Outpatient Encounter [id number] 06/18 [facility] Outpatient Encounter [id number] Jared RUVALCABA 06/25 [facility] HEARING AID CHECK BOTH EARS [id number] Diagnos is: ICD-10- CM Z46.1 Encount er for fitting and adjustm ent of hearing aid<br/ > DANELLE MAYFIELD 07/23 [facility] PRO PHONE CALL 5-10 MIN [id number] Diagnos is: ICD-10- CM H04.129 Dry eye syndrom e of unspeci fied lacrima l gland<b r/> FADUMO HERNANDEZ ICA K 08/09 [facility] Social History Combined list of available smoking, tobacco, and 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 Social History Type Response Date Comment Sourc e Tobacco smoking status LAIS VA-TOBACCO QUIT 15 YRS OR MORE 12/18/2022 [facility] History of tobacco use VA-TOBACCO FORMER USER 12/18/2022 [facility] History of tobacco use VA-TOBACCO FORMER USER 11/05/2021 [facility] History of tobacco use VA-TOBACCO QUIT 1 5 YRS OR MORE 07/28/2019 [facility] History of tobacco use VA-TOBACCO QUIT 1 5 YRS OR MORE 12/10/2018 [facility] History of tobacco use VA-TOBACCO QUIT 1 5 YRS OR MORE 02/25/2018 [facility] History of tobacco use FORMER TOBACCO US ER 7Y OR GREATER 04/10/2015 [facility] History of tobacco use FORMER TOBACCO US ER 7Y OR GREATER 04/27/2014 [facility] History of tobacco use FORMER TOBACCO US ER 7Y OR GREATER 06/18/2006 [facility] Plan of Care List of future care activities from [facility] facilities. Additional future care activities may be listed in the Assessment and Plan section. Date/Time Care Activity Care Activity Detail Facili ty 10/15/2023 AMBULATORY - SURGERY AMBULATORY - SURGERY [facility] Advance Directives List of completed, amended, or rescinded Advance Directives on record at Department of [facility] facilities. An actual copy of the Directive is not included. Date Advance Directive Provider Source 05/23/2003 ADVANCE DIRECTIVE KINGS ANDREW [facility]
--- OUTSIDE RECORDS SUMMARY | 2023-10-13 20:46 | XMS_ITS | Continuity of Care Document ---
Author Name Unknown Organization [facility] Address [address] [address] [place] [address] Phone Care Team Providers Care Automation Tech Name Role Phone Unavailable Unavailable Unavailable Advance Directives Directive Yes / No Effective Date File Name No Information Encounters Encounter Description Practice Location Reason(s) For Visit Diagnoses Date Provider Providers Copied on Encounter [facility], [address] [address], [place], [place], [id number], [place] tel:[phone] [facility] No Information Aug-201 8 [...]
== END 2023-10-13 20:37 | disposition home or self-care (01) ==
LOC: ED 20:33
PROVIDERS: Emergency Provider Family Medicine; PCP Family Medicine
DX: L76.22 Postprocedural hemorrhage of skin and subcutaneous tissue following other procedure (principal)
CPT/HCPCS: 99283

== ENCOUNTER 2023-10-29 13:48 | Outpatient (CLI) | payer MEDICARE, OTHER, SELFPAY ==
--- OUTSIDE RECORDS SUMMARY | 2023-10-29 13:51 | XMS_ITS | Continuity of Care Document ---
Author Name [facility] Organization [facility] Care Team Providers Care Salesperson Terrazzo Tiles Name Role Phone [facility] Unavailable Unavailable Problems Combined list of problems from Department of Defense and Veterans 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 It does not include entries that were removed or entered in error. Problem Status Onset Date Problem Type Date of Resolution Comments Source Adenoma of large intestine Active Condition Jan 17, 2005 Entered By: TOMMY SARMIENTO Comment: colonoscopy and polypectomy 12/10, tubular adenoma at [facility] Cataract, Senile, Unsp Active Condition [facility] Chronic cough Active Condition [facility] Chronic obstructive lung disease Active Condition [facility] Chronic rhinitis Active Condition [facility] Coronary arteriosclerosis Active Condition Nov 10 7 Entered By: LIZZETTE WEI Comment: s/p [id number] at [facility] in 07/15 [facility] Diabetes mellitus Active Condition [facility] Diabetic neuropathy Active Condition [facility] Diabetic renal disease Active Condition Dec 02, 2018 Entered By: CARLOS DALTON Comment: 10/2018: started hemodialysis @ [facility] in [facility] 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 [facility] Dyslipidemia Active Condition [facility] End-stage renal disease Active Condition [facility] Essential hypertension Active Condition [facility] Exposure to potentially hazardous substance Active Condition Dec 18, 2022 Entered By: CORRINE MATHEWS Comment: Asbestos [facility] Ganglion of wrist Active Condition [facility] Gastroesophageal reflux disease without esophagitis Active Condition [facility] Hemorrhoid Active Condition [facility] Hyperparathyroidism due to renal insufficiency Active Condition [facility] Hypothyroidism Active Condition [facility] Indwelling catheter inserted Active Condition [facility] Obstructive Sleep Apnea of Adult (SCT [id number]) Active Condition October 28, 2022 Entered By: KINGS ROCHA Comment: APAP: 10-20, Ramp: 5x10 min, [place] [facility] Oropharyngeal dysphagia Active Condition Dec 14, 2022 Entered By: CORRINE MATHEWS Comment: 2013 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 eval in chart [facility] Psoriasis Nos Active Condition [facility] Shared care - testing consultant and GP Active Condition Dec 02 Entered By: CARLOS DALTON Comment: [facility]: [phone] ov 2020 Entered By: CARLOS DALTON Comment: Immigration Patrol Inspector: Dr James Pérez [phone] ov 2020 Entered By: CARLOS DALTON Comment: [facility] Cough (ICD-9-CM 786.2) Inactive Condition 03/23/2013 [facility] Diabetic Foot Ulcer (ICD-9-CM 250.80/707.8) Inactive Condition 03/23/2013 [facility] Diagnosis: ICD-10-CM Z01.118 Encntr for exam of ears and hearing w oth abnormal findings Active Diagnosis [facility] Diagnosis: ICD-10-CM H04.129 Dry eye syndrome of unspecified lacrimal gland Active Diagnosis [facility] Diagnosis: ICD-10-CM Z46.1 Encounter for fitting and adjustment of hearing aid Active Diagnosis [facility] Diagnosis: ICD-10-CM N18.6 End stage renal disease Active Diagnosis [facility] Diagnosis: ICD-10-CM R26.9 Unspecified abnormalities of gait and mobility Active Diagnosis [facility] Diagnosis: ICD-10-CM J44.9 Chronic obstructive pulmonary disease, unspecified Active Diagnosis [facility] Diagnosis: ICD-10-CM Z65.8 Oth problems related to psychosocial circumstances Active Diagnosis [facility] Diagnosis: ICD-10-CM R05.3 Chronic cough Active Diagnosis [facility] Diagnosis: ICD-10-CM G47.33 Obstructive sleep apnea (adult) (pediatric) Active Diagnosis [facility] Medications Combined list of outpatient [...] (FOR IMMEDIAT E RELIEF). INHALA TION 08/21/2023 [id number] 4 CASANDRA DALTON 2022 2 [facility] AZELASTINE HCL 137MCG/SPRA Y INHL,NASAL, 30ML SPRAY 1 PUFF IN EACH NOSTRIL TWICE A DAY FOR NASAL SYMPTOMS NASAL ACTIVE 01/13/2024 [id number] 3 RODRÍGUEZ MATHEWS 2022 2 [place] [facility] CALCIUM CARBONATE TAB,CHEWABL E CHEW ONE TABLET BY MOUTH FOUR TIMES A DAY NEEDED ORALLY ACTIVE RODRÍGUZE MATHEWS 2022 [facility] [facility] COENZYME Q10 CAP/TAB TAKE ONE TABLET BY MOUTH EVERY DAY ORALLY ACTIVE CASANDRA DALTON 2012 [facility] CYCLOSPORIN E 0.05% (PF) EMULSION,OP H,0.4ML INSTILL 1 DROP BOTH EYES TWICE A DAY BOTH EYES ACTIVE 08/10/2024 [id number] 4 FB-PURFEE RST,MATHEW OD 2023 60 [facility] CYCLOSPORIN E 0.05% (PF) EMULSION,OP H,0.4ML INSTILL 1 DROP BOTH EYES TWICE A DAY BOTH EYES 03/25/2023 [id number] 3 FB-PURFEE RST,MATHEW OD 2021 60 [facility] DEXTROMETHO RPHAN HBR 10MG/GUAIFE NESIN 100MG/5ML (AF & SF) LIQUID TAKE 1 TEASPOON FUL BY MOUTH EVERY 4 HOURS NEEDED FOR COUGH AND CONGESTI ON ORALLY ACTIVE 03/09/2024 [id number] 4 RODRÍGUEZ MATHEWS 2022 120 [facility] DIALYVITE TAB TAKE 1 TABLET BY MOUTH EVERY DAY ORALLY ACTIVE 07/02/2024 [id number] 4 RODRÍGUEZ MATHEWS 2023 100 [facility] DIALYVITE TAB TAKE 1 TABLET BY MOUTH EVERY DAY ORALLY DISCONT INUED 09/10/2023 [id number] 4 RODRÍGUEZ MATHEWS 2022 100 [facility] DM 10/GUAIFENE SN 100MG/5ML (ALC-F/SF)S YR TAKE 5 ML (1 TEASPOON FUL) BY MOUTH EVERY 8 HOURS NEEDED FOR COUGH ORALLY DISCONT INUED 08/21/2023 [id number] 3 CASANDRA DALTON 2022 360 [facility] FLUTICASONE 250MCG/SALM ETEROL 50MCG INHL,ORAL,D ISKUS,60 INHALE 1 PUFF BY INHALATI ON TWICE A DAY TO PREVENT TROUBLE BREATHIN G -RINSE MOUTH AFTER USING INHALA TION 09/23/2023 [id number] 4 RODRÍGUEZ MATHEWS 2022 3 [facility] HYDROCORTIS ONE 2.5% CREAM,TOP APPLY THIN LAYER TOPICALL Y EVERY DAY NEEDED HEMORRHO ID TOPICA LLY 01/09/2023 [id number] 3 RODÍRGUEZ MATHEWS 2022 30 [facility] INSULIN,ASP ART,HUMAN (EQV-NOVOLO G) 100 UNIT/ML,FLE XPEN,3ML INJECT 5 UNITS UNDER THE SKIN BEFORE MEALS FOR DIABETES SUBCUT ANEOUS ACTIVE 10/26/2024 [id number] 4 RODRÍGUEZ MATHEWS 2023 5 [facility] INSULIN,ASP ART,HUMAN (EQV-NOVOLO G) 100 UNIT/ML,FLE XPEN,3ML INJECT 5 UNITS UNDER THE SKIN TWICE A DAY TO DECREASE BLOOD SUGAR-- INJECT IMMEDIAT LINDA BEFORE MEAL (PEN FILL APPROVED ) REPLACES REGULAR INSULIN PEN SUBCUT ANEOUS 05/13/2023 [id number] 3 RODRÍGUEZ MATHEWS 2021 5 [facility] INSULIN,GLA RGINE,HUMAN 100 UNIT/ML INJ,SOLOSTA R,3ML INJECT 18 UNITS UNDER THE SKIN EVERY DAY FOR DIABETES DISCAR D PEN 28 DAYS AFTER INITIAL USE SUBCUT ANEOUS DISCONT INUED 05/13/2023 [id number] 3 RODRÍGUEZ MATHEWS 2021 5 [facility] INSULIN,GLA RGINE,HUMAN 100 UNIT/ML INJ,SOLOSTA R,3ML INJECT 18 UNITS UNDER THE SKIN EVERY DAY FOR DIABETES DISCAR D PEN 28 DAYS AFTER INITIAL USE SUBCUT ANEOUS DISCONT INUED (EDIT) 06/06/2024 [id number] 4 RODRÍGUEZ MATHEWS 2023 5 [facility] INSULIN,GLA RGINE-YFGN 100UNIT/ML INJ PEN,3ML INJECT 18 UNITS UNDER THE SKIN EVERY DAY FOR DIABETES DISCAR D PEN 28 DAYS AFTER INITIAL USE SUBCUT ANEOUS ACTIVE 06/09/2024 [id number] 4 RODRÍGUEZ MATHEWS 2023 5 [facility] LEVOTHYROXI NE NA 175MCG TAB (SYNTHROID) TAKE ONE TABLET BY MOUTH EVERY DAY FOR THYROID ORALLY DISCONT INUED 08/01/2023 [id number] 3 RODRÍGUEZ MATHEWS 2022 90 [facility] LEVOTHYROXI NE NA 175MCG TAB (SYNTHROID) TAKE ONE TABLET BY MOUTH EVERY DAY FOR THYROID ORALLY DISCONT INUED 07/30/2023 [id number] 3 RODRÍGUEZ MATHEWS 2022 90 [facility] LEVOTHYROXI NE NA 200MCG TAB (SYNTHROID) TAKE ONE TABLET BY MOUTH EVERY DAY FOR THYROID ORALLY ACTIVE 01/13/2024 [id number] 4 RODRÍGUEZ MATHEWS 2022 90 [facility] LORATADINE 10MG TAB TAKE ONE TABLET BY MOUTH EVERY DAY NEEDED ORALLY ACTIVE RODRÍGUEZ MATHEWS 2022 [facility] MARINE LIPID (FISH OIL) CAP,ORAL TAKE 1200MG BY MOUTH EVERY DAY ORALLY ACTIVE CASANDRA DALTON 2010 [facility] MONTELUKAST NA 10MG TAB TAKE ONE TABLET BY MOUTH EVERY DAY ORALLY ACTIVE 05/08/2024 [id number] 4 CASANDRA DALTON 2022 90 [facility] MONTELUKAST NA 10MG TAB TAKE ONE TABLET BY MOUTH EVERY DAY ORALLY DISCONT INUED 05/01/2023 [id number] 3 CASANDRA DALTON 2021 90 [facility] NITROGLYCER IN 0.4MG TAB,SUBLING UAL DISSOLVE ONE TABLET UNDER THE TONGUE PRN SUBLIN GUAL ACTIVE CASANDRA DALTON 2010 [facility] PANTOPRAZOL E NA 40MG TAB,EC TAKE ONE TABLET BY MOUTH EVERY DAY ONE-HALF HOUR BEFORE EATING. ORALLY ACTIVE 07/02/2024 [id number] 4 CASANDRA DALTON 2023 90 [facility] PANTOPRAZOL E NA 40MG TAB,EC TAKE ONE TABLET BY MOUTH EVERY DAY ONE-HALF HOUR BEFORE EATING. ORALLY DISCONT INUED 05/29/2023 [id number] 3 CASANDRA DALTON 2022 90 [facility] PRAVASTATIN NA 40MG TAB TAKE ONE TABLET BY MOUTH AT BEDTIME FOR CHOLESTE ROL ORALLY ACTIVE 06/06/2024 [id number] 4 RODRÍGUEZ MATHEWS H 2023 90 [facility] PRAVASTATIN NA 40MG TAB TAKE ONE TABLET BY MOUTH AT BEDTIME FOR CHOLESTE ROL ORALLY DISCONT INUED 06/05/2024 [id number] 3 CASANDRA DALTON 2022 90 [facility] PRAVASTATIN NA 40MG TAB TAKE ONE TABLET BY MOUTH AT BEDTIME FOR CHOLESTE ROL ORALLY DISCONT INUED 05/29/2023 [id number] 3 CASANDRA DALTON 2021 90 [facility] TIOTROPIUM 2.5MCG/ACTU AT INHL,ORAL,6 0D,4GM INHALE TWO PUFFS BY INHALATI ON EVERY DAY FOR ASTHMA INHALA TION ACTIVE 08/26/2024 [id number] 4 MERLYN,HI NA 2023 1 [facility] TIOTROPIUM 2.5MCG/ACTU AT INHL,ORAL,6 0D,4GM INHALE TWO PUFFS BY INHALATI ON EVERY DAY FOR ASTHMA INHALA TION DISCONT INUED 10/29/2023 [id number] 4 TEOFILO ZULETA NA 2022 1 [facility] VANICREAM APPLY THIN LAYER TOPICALL Y EVERY DAY FOR DRY SKIN TOPICA LLY ACTIVE 12/19/2023 [id number] 4 RODRÍGUEZ MATHEWS 2022 1362 [facility] VANICREAM APPLY TO DRY SKIN TOPICALL Y EVERY DAY NEEDED FOR DRY SKIN TOPICA LLY DISCONT INUED 05/01/2023 [id number] 3 CASANDRA DALTON 2021 908 [facility] VITAMIN E 400UNT CAP TAKE 1 CAPSULE BY MOUTH EVERY DAY ORALLY ACTIVE [facility] ZINC SULFATE TAB TAKE 50MG BY MOUTH EVERY DAY ORALLY ACTIVE [facility] 2014 [facility] Allergies, Adverse Reactions, Alerts Combined list of allergies from Department of [facility] and [facility] facilities. It does not include entries that were removed or entered in error. Substance Category Reaction Severity Reaction type Status Date Reported Comments Source ATORVASTATIN Propensity to adverse reactions to drug (finding) Pain in lower limb active 9 [facility] DOXYCYCLINE Propensity to adverse reactions to drug (finding) PRURITIS, Eruption active 4 [facility] HYDROCODONE Propensity to adverse reactions to drug (finding) Disorientat ed, Drowsy, Hallucinati ons active 3 [facility] LIPITOR Propensity to adverse reactions to drug (finding) Cramp active 0 [facility] LISINOPRIL Propensity to adverse reactions to drug (finding) Abdominal discomfort active 7 [facility] METOCLOPRAMI DE Propensity to adverse reactions to drug (finding) Gynecomasti a active 0 [facility] OMEPRAZOLE Propensity to adverse reactions to drug (finding) Diarrhea active 0 [facility] SIMVASTATIN Propensity to adverse reactions to drug (finding) MUSLCE CRAMPS active 4 [facility] Immunizations Combined list of available immunizations from the Department of Defense and Veterans 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 Immunization Series Date Given Administered By Site Reaction Lot Number CVX Code Drug Truck Safety Inspector Status Comments Source TDAP 2022 [facility] RIGHT DELTO ID [id number] 115 complet ed [facility] INFLUENZA, UNSPECIFIED FORMULATION 2021 88 complet ed [facility] INFLUENZA, UNSPECIFIED FORMULATION 2020 88 complet ed [facility] ZOSTER RECOMBINANT 2 2020 187 complet ed [facility] ZOSTER RECOMBINANT 1 2019 187 complet ed [facility] INFLUENZA, SEASONAL, INJECTABLE, PRESERVATIVE FREE 2019 140 complet ed [facility] INFLUENZA, UNSPECIFIED FORMULATION 2018 88 complet ed [facility] INFLUENZA, SEASONAL, INJECTABLE, PRESERVATIVE FREE 2017 140 complet ed [facility] INFLUENZA, HIGH DOSE SEASONAL 2016 135 complet ed [facility] INFLUENZA, HIGH DOSE SEASONAL 2014 135 complet ed [facility] PNEUMOCOCCAL CONJUGATE PCV 13 2014 133 complet ed [place] [id number] 08/22 [facility] INFLUENZA, UNSPECIFIED FORMULATION 2013 88 complet ed [facility] INFLUENZA, UNSPECIFIED FORMULATION 2012 88 complet ed [facility] PNEUMOCOCCAL, UNSPECIFIED FORMULATION 2012 109 complet ed [place], [id number], 14 [facility] TDAP 2012 115 complet ed [facility] TDAP 2012 115 complet ed [facility] ZOSTER LIVE 2012 121 complet ed [employer] Lot#[id number] [id number] 11APR 14 [facility] INFLUENZA, UNSPECIFIED FORMULATION 2011 88 complet ed [facility] INFLUENZA, UNSPECIFIED FORMULATION 2010 88 complet ed [facility] INFLUENZA, UNSPECIFIED FORMULATION 2009 88 complet ed [facility] INFLUENZA, UNSPECIFIED FORMULATION 2008 88 complet ed [facility] TD(ADULT) UNSPECIFIED FORMULATION 2007 139 complet ed [facility] INFLUENZA (HISTORICAL) 2006 88 complet ed [facility] INFLUENZA (HISTORICAL) 2005 88 complet ed [facility] INFLUENZA, UNSPECIFIED FORMULATION 2004 88 complet ed [facility] INFLUENZA, UNSPECIFIED FORMULATION 2003 88 complet ed [facility] PNEUMOCOCCAL, UNSPECIFIED FORMULATION 2003 109 complet ed [facility] TD(ADULT) UNSPECIFIED FORMULATION 2003 139 complet ed due next year [facility] INFLUENZA (HISTORICAL) 2002 88 complet ed pt states he had a Influenza vaccinati on this yr [facility] TD(ADULT) UNSPECIFIED FORMULATION 1994 139 complet ed [facility] Vital Signs Combined list of inpatient [...] DC Date Status Disposition Source [place] [facility] Outpatient Encounter [id number] 05/06 [facility] [place] [facility] Outpatient Encounter [id number] 05/08 [facility] CASE MANAGEMENT [id number] JENNIFER THAPA CCA 05/13 [facility] Out[facility] Encounter [id number] 05/[address] [facility] [place] [facility] Outpatient Encounter [id number] 06/03 [facility] [place] [facility] Outpatient Encounter [id number] 06/04 [facility] Outpatient Encounter [id number] 06/[address] [facility] [place] [facility] Outpatient Encounter [id number] 06/08 [place] [facility] [place] [facility] Outpatient Encounter [id number] 06/08 [place] [place] [facility] Outpatient Encounter [id number] 06/23 [place] [facility] [place] [facility] Outpatient Encounter [id number] 08/06 [place] [facility] [place] [facility] Outpatient Encounter [id number] 08/11 [place] [facility] [place] [facility] Outpatient Encounter [id number] 08/11 [place] [facility] [place] [facility] Outpatient Encounter [id number] 08/14 [place] [facility] [place] [facility] HC PRO PHONE CALL 5-10 MIN [id number] Diagnos is: ICD-10- CM G47.33 Obstruc tive sleep apnea (adult) (pediat jocelynn)
KARON YOUNG 08/15 [place] [facility] Outpatient Encounter [id number] 08/[address] [facility] [place] [facility] Outpatient Encounter [id number] 10/27 [place] [facility] [place] [facility] PT EDUCATION NOC INDIVID [id number] Diagnos is: ICD-10- CM G47.33 Obstruc tive sleep apnea (adult) (pediat jocelynn)
KINGS ROCHA 10/28 [place] [facility] [place] [facility] Outpatient Encounter [id number] 11/05 [place] [facility] [place] [facility] Outpatient Encounter [id number] 11/26 [place] [facility] [place] [facility] Outpatient Encounter [id number] MARY ELLEN MAY 12/10 [place] [facility] [place] [facility] Outpatient Encounter [id number] 12/10 [place] [facility] [place] [facility] Outpatient [facility]counter [id number] 12/10 [place] [facility] OFFICE O/P EST HI 40-54 MIN [id number] Diagnos is: ICD-10- CM R05.3 Chronic cough<b r/> Saskia MATHEWS H 12/18 [place] [facility] [place] [facility] Outpatient Encounter [id number] 01/07 [place] [facility] [place] [facility] Outpatient Encounter [id number] 02/05 [place] [facility] [place] [facility] Outpatient Encounter [id number] 02/11 [place] [facility] PRO PHONE CALL 21-30 MIN [id number] Diagnos is: ICD-10- CM Z65.8 Oth problem s related to psychos ocial circums tances< br/> VESNA GRAY 02/11 [place] [facility] [place] [facility] Outpatient Encounter [id number] DEBRA PINTO 02/18 [place] [facility] SELF CARE MNGMENT TRAINING [id number] Diagnos is: ICD-10- CM J44.9 Chronic obstruc tive pulmona ry disease , unspeci fied
MAGGIE EVANS 02/19 [place] [facility] [place] [facility] Outpatient Encounter [id number] 03/03 [place] [facility] [place] [facility] Outpatient Encounter [id number] Diagnos is: ICD-10- CM R26.9 Unspeci fied abnorma lities of gait and mobilit y
NANCY HOWARD MG M 03/04 [place] [facility] [place] [facility] Outpatient Encounter [id number] 03/06 [place] [facility] [place] [facility] Outpatient Encounter [id number] 03/26 [place] [facility] TARGETED CASE MANAGEMENT [id number] Chani PERAZA L 05/04 [place] [facility] HC PRO PHONE CALL 5-10 MIN [id number] Diagnos is: ICD-10- CM N18.6 End stage renal disease
FADUMO HERNANDEZ K 05/05 [place] [facility] TARGETED CASE MANAGEMENT [id number] Chani PERAZA L 05/05 [facility] [facility] TARGETED CASE MANAGEMENT [id number] Chani PERAZA AMI L 05/13 [place] [facility] CASE MANAGEMENT [id number] JENNIFER THAPA CCA 05/13 [facility] Outpatient Encounter [id number] 05/[address] [facility] Outpatient Encounter [id number] GUADALUPE ACOSTA 05/14 [facility] CASE MANAGEMENT [id number] Chani PERAZA L 05/19 [place] [facility] Outpatient Encounter [id number] 05/19 [facility] Outpatient Encounter [id number] Chani PERAZA L 05/27 [place] [facility] Outpatient Encounter [id number] 05/28 [facility] Outpatient Encounter [id number] 05/28 [facility] Encounter [id number] NATHANIELANSELMO NANCY A 06/02 [facility] Outpatient Encounter [id number] 06/02 [facility] Outpatient Encounter [id number] DARRELL LOO 06/17 [facility] Outpatient Encounter [id number] 06/18 [facility] Outpatient Encounter [id number] Jared RUVALCABA 06/25 [facility] HEARING AID CHECK BOTH EARS [id number] Diagnos is: ICD-10- CM Z46.1 Encount er for fitting and adjustm ent of hearing aid<br/ > DANELLE MAYFIELD 07/23 [facility] PRO PHONE CALL 5-10 MIN [id number] Diagnos is: ICD-10- CM H04.129 Dry eye syndrom e of unspeci fied lacrima l gland<b r/> FADUMO HERNANDEZ K 08/09 [facility] OFF/OP EST OCTOBER X REQ PHY/QHP [id number] Diagnos is: ICD-10- CM Z01.118 Encntr for exam of ears and hearing w oth abnorma l finding s
DAYANNA CRAWFORD K 10/14 [facility] Outpatient Encounter [id number] 10/23 [facility] Social History Combined list of available smoking, tobacco, and 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 Social History Type Response Date Comment Sourc e Tobacco smoking status NHIS VA-TOBACCO FORMER USER 12/18/2022 [facility] History of tobacco use VA-TOBACCO QUIT 1 5 YRS OR MORE 12/18/2022 [facility] History of tobacco use VA-TOBACCO QUIT 1 5 YRS OR MORE 11/05/2021 [facility] History of tobacco use VA-TOBACCO QUIT 1 5 YRS OR MORE 07/28/2019 [facility] History of tobacco use VA-TOBACCO QUIT 1 5 YRS OR MORE 12/10/2018 [facility] History of tobacco use VA-TOBACCO FORMER USER 02/25/2018 [facility] History of tobacco use FORMER TOBACCO US ER 7Y OR GREATER 04/10/2015 [facility] History of tobacco use FORMER TOBACCO US ER 7Y OR GREATER 04/27/2014 [facility] History of tobacco use FORMER TOBACCO US ER 7Y OR GREATER 06/18/2006 [facility] Plan of Care List of future care activities from 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 Additional future care activities may be listed in the Assessment and Plan section. Date/Time Care Activity Care Activity Detail Facili ty 11/17/2023 AMBULATORY - SURGERY AMBULATORY - SURGERY [facility] Advance Directives List of completed, amended, or rescinded Advance Directives on record at 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 An actual copy of the Directive is not included. Date Advance Directive Provider Source 05/23/2003 ADVANCE DIRECTIVE [facility]
--- OUTSIDE RECORDS SUMMARY | 2023-10-29 13:51 | XMS_ITS ---
Author Name [facility] Address [address] [place] [id number] Phone [phone] Organization [facility] e, NA DOCUMENT DISCLAIMER Multiple document versions may exist, please be sure you review the latest version. 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 [...] October 12, 2023 October 10, 2024 Active Mircera Every 2 weeks 50 mcg Intravenous - push October 28, 2023 October 26, 2024 Active Vitamin D (Calcitriol) Oral 3X Week 0.25 mcg Oral October 09, 2023 October 07, 2024 Active Home Medications Medication Instructions Dosage Route Start Date End Date Status albuterol sulfate 90 mcg/actuation Inhale using inhaler [...] capsule ORAL January 07, 2023 Active Dialyvite [phone] fj-uk-vil-mg Take by mouth every evening with meals 1 tablet ORAL January 07, 2023 Active Flonase Allergy Relief 50 mcg/actuation [place] intranasally once a day 1 spray NASAL January 07, 2023 Active hydrocortisone 2.5% Apply to affected area twice a day as needed TOPICAL January 07, 2023 Active Lantus U-100 Insulin 100 unit/mL Inject subcutaneously every evening 18 unit SUBCUTANEOUS October 29, 2020 Active Levo-T 175 mcg Take by mouth once a day 1 tablet ORAL October 29, 2020 Active MegaRed [place]-3 Krill Oil 1,000-230-60 mg Take by mouth once a day 1 capsule ORAL January 07, 2023 Active methyl salicylate-mentho l 15-10% Apply to affected area three times [...] 1 puff INHALATION January 07, 2023 Active gentamicin in NaCl (iso-osm) 80 mg/100 mL every two weeks as directed 40 mg INTRAVENOUS October 26, 2023 Discontinued VITAL SIGNS Post-Treatment Vital Signs Vital Sign Value Date / Time Blood Pressure-sitting 141/66 mmHg October 27 11:32 AM Heart Rate 69 beats per minute October 28, 2023 11:32 AM Respiratory Rate 18 breaths per minute October 27 11:32 AM Temperature 98.2 deg. F October 28, 2023 11: 32 AM Weight Vital Sign Value Date / Time Estimated Dry Weight 94.5 kg October 11 11:59 PM Pre-Dialysis 96.40 kg October 28, 2023 11: 32 AM Post-Dialysis 94.80 kg October 28, 2023 11: 32 AM Other Other Value Date / Time Height 183 cm October 02, 2023 1 2:00 AM Body Mass Index 28.22 kg/m2 October 12, 2023 03: 02 PM [facility] LAB RESULTS Hematology Result Type Result Value Relevant Referen ce Range Interpretation Date Folate, Serum > 24.0 ng/mL No Reference Ran ge Provided - April 08, 2023 UIBC (Calc) 64 mcg/dL 155 - 355 mcg/dL Low Decembe 2022 Transferrin Sat. (Calc) 66 % 20 - 55 % High May 13 TIBC 188 mcg/dL 185 - 515 mcg/dL - May 13, 2023 Platelets 145 1000/mcL 130 - 400 1000/mcL - Dece mber 2022 Neutrophils 60.5 % 40.0 - 75.0 % [...] 1000/mcL 130 - 400 1000/mcL - Apri l 2023 Hemoglobin x 3 30.0 % 42.0 [...] 45 - 160 mcg/dL - October 08 TIBC 204 mcg/dL 185 - 515 mcg/dL - October 09, 2023 UIBC (Calc) 101 mcg/dL 155 - 355 mcg/dL Low October 09, 2023 Hemoglobin x 3 31.8 % 42.0 - 54.0 % Low October 14, 2023 HGB 10.6 g/dL 14.0 - 18.0 g/dL Low October 14, 2023 HGB 9.9 g/dL 14.0 - 18.0 g/dL Low October 21, 2023 Hemoglobin x 3 29.7 % 42.0 - 54.0 % Low October 21, 2023 Metabolic/Renal Result Type Result Value Relevant [...] mEq/L 3.5 - 5.1 mEq/L - October 08, 024 Sodium 138 mEq/L 136 - 145 [...] 05, 2023 Corrected Ca x P Product 33 0 - 54 - October 05, 2023 Alkaline Phosphatase 110 U/L 40 - 129 U/L - Ap ril 2023 Ca x P Product 33 0 - 54 - October 05, 2023 Phosphorus 3.6 mg/dL 2.6 - 4.5 mg/dL - October 05, 2023 Calcium, Total 9.2 mg/dL 8.7 - 10.4 mg/dL - Apri l 2023 Vitamin D 25 Hydroxy 67.7 ng/mL 30.0 - 100.0 ng/mL - October 05, 2023 PTH-Intact, Plasma 323 pg/mL 16 - 80 pg/mL High Apr il 2023 Alkaline Phosphatase 105 U/L 40 - 129 U/L - Ma y 2023 Calcium, Total 9.0 mg/dL 8.7 - 10.4 mg/dL - October 09, 2023 Ca x P Product 26 0 - 54 - October 08 24 Phosphorus 2.9 mg/dL 2.6 - 4.5 mg/dL - October 08 024 Corrected Ca x P Product 26 0 - 54 - October 09, 2023 PTH-Intact, Plasma 435 pg/mL 16 - 80 pg/mL High October 09, 2023 Magnesium 1.9 mg/dL 1.6 - 2.6 mg/dL - October 08 024 Liver/Nutrition Result Type Result Value Relevant Reference Range Interpre tation A/G Ratio 1.3 1.0 - 2.0 - [...] Result Value Relevant Reference Range Interpre tation HCV s/co ratio 0.06 0.00 - 0.79 - October 05, 2023 Trace Elements Result Type Result Value Relevant Reference Range Interpre tation Aluminum 5 mcg/L 0 - 10 mcg/L [...] March 23, 2023 0.5 mL Intramuscular Completed [employer] COVID-19 Vac cine, Bivalent, Booster March 17, [...] Dialysate Dialyzer Dialysis Access Meds Admin October 23, 2023 Weight 96.00 kg Weight 94.60 kg 03:34:00 450 2.0 K, 2.5 Ca, 1.0 Mg, 100 Dextrose (G2251) 180nre Optifl ux Blood Pressure-sitting 136/68 mmHg Blood Pressure-sit ting 141/62 mmHg Heart Rate 81 beats per minute Heart Rate 70 beats per minute Respiratory Rate 18 breaths per minute Respiratory Rate 18 breaths per minute Temperature 98.1 deg. F Temperature 97.2 deg. F October 26, 2023 Weight 97.30 kg Weight 95.20 kg 03:35:00 450 2.0 K, 2.5 Ca, 1.0 Mg, 100 Dextrose (G2251) 180nre Optiflux Hemodialysis-AV Fistula-Standard, Left Forearm, Other/Unknown Heparin Sodium (Porcine) 1,000 Units/mL Systemic; 2000units,Intravenous - push Iron Sucrose (Venofer); 50mg,Intravenous - push Vitamin D (Calcitriol) Oral; 0.25mcg,Oral Blood Pressure-sitting 113/52 mmHg Blood Pressure-sit ting 104/56 mmHg Heart Rate 80 beats per minute Heart Rate 73 beats per minute Respiratory Rate 18 breaths per minute Respiratory Rate 18 breaths per minute Temperature 98.2 deg. F Temperature 97.9 deg. F October 28, 2023 Weight 96.40 kg Weight 94.80 kg 03:34:00 450 2.0 K, 2.5 Ca, 1.0 Mg, 100 Dextrose (G2251) 180nre [facility] Hemodialysis-AV Fistula-Standard, Left Forearm, Other/Unknown Heparin Sodium (Porcine) 1,000 Units/mL Systemic; 2000units,Intravenous - push Mircera; 50mcg,Intravenous - push Vitamin D (Calcitriol) Oral; 0.25mcg,Oral Blood Pressure-sitting 121/55 mmHg Blood Pressure-sit ting 141/66 mmHg Heart Rate 76 beats per minute Heart Rate 69 beats per minute Respiratory Rate 18 breaths per minute Respiratory Rate 18 breaths per minute Temperature 97.9 deg. F Temperature 98.2 deg. F
--- OUTSIDE RECORDS SUMMARY | 2023-10-29 13:52 | XMS_ITS | Encounter Summary ---
Author Organization [facility] Address [address] [place] [address] Care Team Providers Care Custody Assistant Name Role Phone Unavailable Primary Care Provider Unavailabl e Encounter Details Date Type Department Care Team (Late st Contact Info) Description 10/09/2023 Orders Only [facility] [place] [address] [place] [address] Darren Youssef MD [address] [place] [address] Social History Tobacco Use Types [...] Results (10/09/2023) eKdrt/V 1.39 [facility] eKt/V Got 1.39 [facility] eKt/V ([place]) 1.34 [facility] spKt/V ([place]augirdas II) 1.56 [facility] nPCR_HD 0.88 [facility] spKt/V Gotch 1.64 [facility] WSTDKT/V 2.4 [facility] eNPCR 0.82 [facility] PCR 56.22 [facility] 10/09/2023 10/09/2023 [place] Ordering Provider LAB BLOOD ORDERABLE S [place] [facility] Contact Performing lab Unknown, [place] * HD KINETICS (10/09/2023) % Urea Reduction 74 65 - 80 % [facility] 10/09/2023 10/10/2023 4:3 3 AM CDT Narrative Resulting Agency Comment Specimen source: Plasma Darren Youssef MD LAB BLOOD ORDERABLES Performing Organization Address [facility] de Phone Number [facility] See order comments or contact performing lab Unknown, [place] * POST CHEMISTRY (10/09/2023) BUN Post Dialysis 11 6 - 19 mg/dL [facility] 10/09/2023 10/10/2023 4:3 3 AM CDT Narrative [facility] - 10/10/2023 Unless otherwise specified, test(s) performed at: [facility], [address] [place] [address], [place] [address] SENIOR SQL SERVER DBA: Rojas Kirkland M.D., Ph.D For any questions, please call customer service at FREQUENCY:MONTHLY Resulting Agency Comment Specimen source: Plasma Darren Youssef MD LAB BLOOD ORDERABLES Performing Organization Address City/[facility]/ZIP Co de Phone Number [facility] See order comments or contact performing [...] 10/09/2023 10/10/2023 4:4 0 AM CDT Narrative [facility] - 10/10/2023 Unless otherwise specified, test(s) performed at: [facility], [address] [place] [address], [place] [address] SENIOR SQL SERVER DBA: Rojas Kirkland M.D., Ph.D For any questions, please call customer service at FREQUENCY:MONTHLY Resulting Agency Comment Specimen source: Serum Darren Youssef MD LAB BLOOD ORDERABLES [facility] See order comments or contact performing [...] 10/10/2023 4:[address] [facility] - 10/10/2023 Unless otherwise specified, test(s) performed at: [facility], [address] [place] [address], [place] [address] SENIOR SQL SERVER DBA: Rojas Kirkland M.D., Ph.D For any questions, please call customer service at FREQUENCY:MONTHLY Resulting Agency Comment Specimen source: Blood Darren Youssef MD LAB BLOOD ORDERABLES [facility] See order comments or contact performing lab Unknown, [place] * (ABNORMAL) [facility] (10/09/2023) Pathologist [facility] PTH 435(H) 16 - 80 pg/mL [facility] 10/09/2023 10/10/2023 4:4 6 AM CDT Narrative [facility] - 10/10/2023 Unless otherwise specified, test(s) performed at: [facility], [address] [place] [address], [place] [address] SENIOR SQL SERVER DBA: Rojas Kirkland M.D., Ph.D For any questions, please call customer service at FREQUENCY:MONTHLY Resulting Agency Comment Specimen source: Plasma Darren Youssef MD LAB BLOOD ORDERABLES [facility] See order comments or contact performing lab Unknown, [place] documented in this encounter Visit Diagnoses Not on filedocumented in this encounter
--- OUTSIDE RECORDS SUMMARY | 2023-10-29 13:52 | XMS_ITS | Encounter Summary ---
Author Organization [facility] Address [address] [facility] [address] [place] [address] Care Team Providers Care Sand Screener Name Role Phone Unavailable Primary Care Provider Unavailabl e Encounter Details Date Type Department Care Team (Late st Contact Info) Description 10/14/2023 Orders Only [facility] [place] [address] [facility] [address] [place] [address] Darren Youssef MD [address] [place] [address] Social History Tobacco Use Types Packs/Day Years Used Date Smoking Tobacco: Never Assessed Sex and Gender Information Value Date Recorded Sex Assigned at Not on file Gender Identity Not on file Sexual Orientation Not on file documented as of this encounter Plan of Treatment Not on file documented as of this encounter Procedures Procedure Name Priority Date/Time Associated Diagnosis Comments HEMATOLOGY Routine 10/14/2023 documented in this encounter Results * (ABNORMAL) HEMATOLOGY (10/14/2023) Hemoglobin 10.6(L) 14.0 - 18.0 g/dL [facility] Hemoglobin x 3 31.8(L) 42.0 - 54.0 % [facility] 10/14/2023 10/15/2023 2:1 2 PM CDT Narrative [facility] - 10/15/2023 Unless otherwise specified, test(s) performed at: [facility], [address] [place] [address], [place] [address] ZIPPER CUTTER: Rojas Kirkland M.D., Ph.D For any questions, please call customer service at FREQUENCY:OTHER Resulting Agency Comment Specimen source: Blood Darren Youssef MD LAB BLOOD ORDERABLES Performing Organization Address City/State/[facility] Co de Phone Number [facility] See order comments or contact performing lab Unknown, [place] documented in this encounter Visit Diagnoses Not on filedocumented in this encounter
--- OUTSIDE RECORDS SUMMARY | 2023-10-29 13:52 | XMS_ITS | Encounter Summary ---
Author Name [facility] Organization Department of [facility] Address [address], [place] [address] Support Name Relationship Address Phone JAGRUTI SERRANO [...] A Feb 06, 2003 RR PART A [id number] JANETTERUDDY GranadoARD PATIENT MEDICARE (WNR) MEDICARE (M) RR PART B Feb 06, 2003 RR PART B [id number] JANETTEVannesa SHERYL PATIENT MEDICARE (WNR) MEDICARE (M) PART A Feb 06, 2003 PART A [id number] SHERYL SERRANO PATIENT MEDICARE (WNR) MEDICARE (M) PART B Feb 06, 2003 PART B [id number] SHERYL SERRANO PATIENT MEDICARE PART D (WNR) MEDICARE () PART D Jun 08, 2022 PART D [id number] SHERYL SERRANO PATIENT [employer] MEDIC[employer] SECONDARY (NO B EXC) UPREH S Jun 08, 2009 [id number] SHERYL SERRANO PATIENT [employer] MEDICARE SUPPLEMEN KAR[employer] MEDIC ARE SUPPL EMENT Jun 08, 2009 [id number] SHERYL SERRANO PATIENT Selected Encounter This section includes the information on record at PA for the Encounter. Date/Time Encounter Type Encounter Description Reason Pro vider Source October 24, 2023 09:44 PM Outpatient Encounter TELEPHONE TRIAGE IHE Encounter Template Text not used by PA Plan of Treatment: Future Appointments (+ 6 months) and Future Tests (+/- 45 days) The Plan of Treatment section includes future care activities for the [facility] This section includes future appointments and future orders which are active, pending or scheduled. Future Appointments This section includes appointments that were scheduled to occur 6 months from the date of the Encounter, up to a maximum of 20 appointments. The data comes from all PA treatment facilities. Appointment Date/Time Appointment Type Appointme nt Facility Name Nov 17, 2023 01:30 PM AMBULATORY - SURGERY [facility] Social History: Smoking Status (Most [...] Date/Time Current Smoking Status Comment Billie ity Dec 18, 2022 01:00 PM VA-TOBACCO FORMER USER [facility] Tobacco Use History This section [...] Provider Source May 23, 2003 ADVANCE DIRECTIVE LORRIEHEIDIMarika [facility] Encounter Notes: All associated encounter notes This section contains the clinical notes associated to the Encounter. Date/Time Encounter Note(s) Provider Source October 26, 2023 08:15 PM ADDENDUM: LOCAL TITLE: Addendum STANDARD TITLE: ADDENDUM DATE OF NOTE: OCTOBER 26, 2023@20:15:54 ENTRY DATE: OCTOBER 26, 2023@20:15:55 AUTHOR: URVASHI MATHEWS EXP COSIGNER: URGENCY: STATUS: COMPLETED I will renew his aspart insulin as requested, without any changes to the current prescription, unless his non-VA clinician sends request otherwise to co-managed care. /katey/ Urvashi Mathews MD Physician Signed: 10/26/2023 20:16 Receipt Acknowledged By: 10/27/2023 08:12 /katey/ JAMISON HERNANDEZ RN REGISTERED NURSE --- Original Document --- 10/24/23 PHARMACY CALL CENTER MEDICATION RENEWAL REQUEST: Medication renewal(s) requested by patient for: Non-controlled substance(s): SHERYL SERRANO is requesting a renewal of the following prescription (s): *[place] uses 5 units before each meal* INSULIN,ASPART(EQV-NOVLG)10 0UN/ML FLXPEN [id number] 5 05/13/2023 05/12/2022 05/06/2023 1 URVASHI MATHEWS H 28.32 INJECT 5 UNITS UNDER THE SKIN TWICE A DAY TO DECREASE BLOOD SUGAR-- If clinically appropriate, please renew. Meds to be MAILED Active and Recently Outpatient Medications (excluding Supplies): Active Outpatient Medications Status 1) ACCU-CHEK GUIDE (GLUCOSE) TEST STRIP USE 1 STRIP ACTIVE THREE TIMES A DAY TO CHECK BLOOD SUGAR--USE WITHIN 3 MINUTES OF REMOVING FROM CONTAINER 2) AZELASTINE 137MCG/SPRAY 200D NASAL INHL SPRAY 1 PUFF ACTIVE IN EACH NOSTRIL TWICE A DAY FOR NASAL SYMPTOMS 3) CYCLOSPORINE 0.05% (PF) OPH EMUL 0.4ML INSTILL 1 DROP ACTIVE BOTH EYES TWICE A DAY 4) DIALYVITE TAB TAKE 1 TABLET BY MOUTH EVERY DAY ACTIVE 5) DM 10/GUAIFENESN 100MG/5ML (AF & SF) LIQ TAKE 1 ACTIVE TEASPOONFUL BY MOUTH EVERY 4 HOURS NEEDED FOR COUGH AND CONGESTION 6) INSULIN,GLARGINE-YFGN 100UNIT/ML PEN 3ML INJECT 18 ACTIVE UNITS UNDER THE SKIN EVERY DAY FOR DIABETESDISCARD PEN 28 DAYS AFTER INITIAL USE 7) LEVOTHYROXINE NA (SYNTHROID) 200MCG TAB TAKE ONE ACTIVE TABLET BY MOUTH EVERY DAY FOR THYROID 8) MONTELUKAST NA 10MG TAB TAKE ONE TABLET BY MOUTH ACTIVE EVERY DAY 9) PANTOPRAZOLE NA 40MG EC TAB TAKE ONE TABLET BY MOUTH ACTIVE EVERY DAY ONE-HALF HOUR BEFORE EATING. 10) PRAVASTATIN NA 40MG TAB TAKE ONE TABLET BY MOUTH AT ACTIVE BEDTIME FOR CHOLESTEROL 11) TIOTROPIUM 2.5MCG/ACTUAT 60D ORAL INHL INHALE TWO ACTIVE PUFFS BY INHALATION EVERY DAY FOR ASTHMA 12) VANICREAM TOP CREAM APPLY THIN LAYER TOPICALLY EVERY ACTIVE DAY FOR DRY SKIN Active Non-VA Medications Status 1) Non-VA CALCIUM CARBONATE TAB,CHEWABLE ONE TABLET ACTIVE MOUTH FOUR TIMES A DAY NEEDED 2) Non-VA COENZYME Q10 CAP/TAB 1 TABLET COENZYME Q10 ACTIVE 100MG MOUTH EVERY DAY 3) Non-VA FISH OIL 1000MG (500MG DHA/EPA) CAP 1200MG ACTIVE MOUTH EVERY DAY 4) Non-VA LORATADINE 10MG TAB 10MG MOUTH EVERY DAY ACTIVE NEEDED 5) Non-VA NITROGLYCERIN 0.4MG SL TAB 0.4MG UNDER THE ACTIVE TONGUE NEEDED 6) Non-VA VITAMIN E 180MG (400UNIT) CAP 400UNIT MOUTH ACTIVE EVERY DAY 7) Non-VA ZINC SULFATE TAB 50MG MOUTH EVERY DAY ACTIVE 19 Total Medications Future appointments: 11/17/2023 13:30 MSP AUD TWELVE This note was created by a [address] [facility] employee.Replies to this message are not monitored. Please do not reply back to the author of this message. If not renewing a medication, please have your clinic contact patient with reason. Thank you. /katey/ FOSTER JASSO RESIDENT CARE COORDINATOR VISN 10 P[employer] STITCHER FEEDER Signed: 10/24/2023 21:46 Receipt Acknowledged By: 10/25/2023 22:27 /katey/ Urvashi Mathews MD Physician 10/25/2023 ADDENDUM STATUS: COMPLETED PACT RN: Please reach out to . It appears that he is using the aspart insulin differently than how is prescribed. He has co managed care. If another doctor has changed his dosing, the request will need to go through co managed care. Thank you. PCP: Liliam Shine [place] /katey/ Urvashi Mathews MD Physician Signed: 10/25/2023 22:35 Receipt Acknowledged By: 10/26/2023 10:16 /katey/ JAMISON HERNANDEZ RN REGISTERED NURSE 10/26/2023 ADDENDUM STATUS: COMPLETED Zinc Plating Machine Operator spoke with spouse, Jagruti who is listed as veterans E-Contact. Per spouse takes the Insulin Aspart 5 units before meals BID, eats 2 meals a day (small breakfast and supper). Spouse reports sometimes he will eat snacks midday but he does NOT receive Insulin Aspart 5 units prior to the midday snacks. Spouse states the only time recieves an extra dose of insulin Aspart 5 units is when he consumes an alcoholic drink and this was instructed by his non-VA provider because alcohol contains sugars. Spouse states consumes an alcoholic beverage once every 2-3 months. Spouse reports veterans non-VA provider, Liliam Shine [place], retired and is now seeing Dr. Anna Marie Oglesby. Alerting PCP to above information. /katey/ JAMISON HERNANDEZ RN REGISTERED NURSE Signed: 10/26/2023 10:23 Receipt Acknowledged By: 10/26/2023 20:15 /katey/ Urvashi Mathews MD Physician URVASHI MATHEWS [facility] October 26, 2023 10:16 AM ADDENDUM: LOCAL TITLE: Addendum STANDARD TITLE: ADDENDUM DATE OF NOTE: OCTOBER 26, 2023@10:16:43 ENTRY DATE: OCTOBER 26, 2023@10:16:44 AUTHOR: JAMISON HERNANDEZ EXP COSIGNER: URGENCY: STATUS: COMPLETED Zinc Plating Machine Operator spoke with spouse, Jagruti who is listed as veterans E-Contact. Per spouse takes the Insulin Aspart 5 units before meals BID, eats 2 meals a day (small breakfast and supper). Spouse reports sometimes he will eat snacks midday but he does NOT receive Insulin Aspart 5 units prior to the midday snacks. Spouse states the only time recieves an extra dose of insulin Aspart 5 units is when he consumes an alcoholic drink and this was instructed by his non-VA provider because alcohol contains sugars. Spouse states consumes an alcoholic beverage once every 2-3 months. Spouse reports veterans non-VA provider, Liliam Shine [place], retired and is now seeing Dr. Anna Marie Oglesby. Alerting PCP to above information. /katey/ JAMISON K STUB, RN REGISTERED NURSE Signed: 10/26/2023 10:23 Receipt Acknowledged By: 10/26/2023 20:15 /es/ Urvashi Mathews MD Physician --- Original Document --- 10/24/23 PHARMACY CALL CENTER MEDICATION RENEWAL REQUEST: Medication renewal(s) requested by patient for: Non-controlled substance(s): SHERYL SERRANO is requesting a renewal of the following prescription (s): *[place] uses 5 units before each meal* INSULIN,ASPART(EQV-NOVLG)10 0UN/ML FLXPEN [id number] 05/13/2023 05/12/2022 05/06/2023 1 URVASHI MATHEWS 28.32 INJECT 5 UNITS UNDER THE SKIN TWICE A DAY TO DECREASE BLOOD SUGAR-- If clinically appropriate, please renew. Meds to be MAILED Active and Recently Outpatient Medications (excluding Supplies): Active Outpatient Medications Status 1) ACCU-CHEK GUIDE (GLUCOSE) TEST STRIP USE 1 STRIP ACTIVE THREE TIMES A DAY TO CHECK BLOOD SUGAR--USE WITHIN 3 MINUTES OF REMOVING FROM CONTAINER 2) AZELASTINE 137MCG/SPRAY 200D NASAL INHL SPRAY 1 PUFF ACTIVE IN EACH NOSTRIL TWICE A DAY FOR NASAL SYMPTOMS 3) CYCLOSPORINE 0.05% (PF) OPH EMUL 0.4ML INSTILL 1 DROP ACTIVE BOTH EYES TWICE A DAY 4) DIALYVITE TAB TAKE 1 TABLET BY MOUTH EVERY DAY ACTIVE 5) DM 10/GUAIFENESN 100MG/5ML (AF & SF) LIQ TAKE 1 ACTIVE TEASPOONFUL BY MOUTH EVERY 4 HOURS NEEDED FOR COUGH AND CONGESTION 6) INSULIN,GLARGINE-YFGN 100UNIT/ML PEN 3ML INJECT 18 ACTIVE UNITS UNDER THE SKIN EVERY DAY FOR DIABETESDISCARD PEN 28 DAYS AFTER INITIAL USE 7) LEVOTHYROXINE NA (SYNTHROID) 200MCG TAB TAKE ONE ACTIVE TABLET BY MOUTH EVERY DAY FOR THYROID 8) MONTELUKAST NA 10MG TAB TAKE ONE TABLET BY MOUTH ACTIVE EVERY DAY 9) PANTOPRAZOLE NA 40MG EC TAB TAKE ONE TABLET BY MOUTH ACTIVE EVERY DAY ONE-HALF HOUR BEFORE EATING. 10) PRAVASTATIN NA 40MG TAB TAKE ONE TABLET BY MOUTH AT ACTIVE BEDTIME FOR CHOLESTEROL 11) TIOTROPIUM 2.5MCG/ACTUAT 60D ORAL INHL INHALE TWO ACTIVE PUFFS BY INHALATION EVERY DAY FOR ASTHMA 12) VANICREAM TOP CREAM APPLY THIN LAYER TOPICALLY EVERY ACTIVE DAY FOR DRY SKIN Active Non-VA Medications Status 1) Non-VA CALCIUM CARBONATE TAB,CHEWABLE ONE TABLET ACTIVE MOUTH FOUR TIMES A DAY NEEDED 2) Non-VA COENZYME Q10 CAP/TAB 1 TABLET COENZYME Q10 ACTIVE 100MG MOUTH EVERY DAY 3) Non-VA FISH OIL 1000MG (500MG DHA/EPA) CAP 1200MG ACTIVE MOUTH EVERY DAY 4) Non-VA LORATADINE 10MG TAB 10MG MOUTH EVERY DAY ACTIVE NEEDED 5) Non-VA NITROGLYCERIN 0.4MG SL TAB 0.4MG UNDER THE ACTIVE TONGUE NEEDED 6) Non-VA VITAMIN E 180MG (400UNIT) CAP 400UNIT MOUTH ACTIVE EVERY DAY 7) Non-VA ZINC SULFATE TAB 50MG MOUTH EVERY DAY ACTIVE 19 Total Medications Future appointments: 11/17/2023 13:30 MSP AUD TWELVE This note was created by a [address] [facility] employee.Replies to this message are not monitored. Please do not reply back to the author of this message. If not renewing a medication, please have your clinic contact patient with reason. Thank you. /katey/ FOSTER JASSO CPHT VISN 10 P[employer] STITCHER FEEDER Signed: 10/24/2023 21:46 Receipt Acknowledged By: 10/25/2023 22:27 /katey/ Urvashi Mathews MD Physician 10/25/2023 ADDENDUM STATUS: COMPLETED PACT RN: Please reach out to . It appears that he is using the aspart insulin differently than how is prescribed. He has co managed care. If another doctor has changed his dosing, the request will need to go through co managed care. Thank you. PCP: Liliam Shine [place] /daljit Mathews MD Physician Signed: 10/25/2023 22:35 Receipt Acknowledged By: 10/26/2023 10:16 /katey/ JAMISON HERNANDEZ RN REGISTERED NURSE JAMISON HERNANDEZ [facility] October 25, 2023 10:33 PM ADDENDUM: LOCAL TITLE: Addendum STANDARD TITLE: ADDENDUM DATE OF NOTE: OCTOBER 25, 2023@22:33:18 ENTRY DATE: OCTOBER 25, 2023@22:33:20 AUTHOR: URVASHI MATHEWS EXP COSIGNER: URGENCY: STATUS: COMPLETED PACT RN: Please reach out to . It appears that he is using the aspart insulin differently than how is prescribed. He has co managed care. If another doctor has changed his dosing, the request will need to go through co managed care. Thank you. PCP: Liliam Shine [place] /katey/ Urvashi Mathews MD Physician Signed: 10/25/2023 22:35 Receipt Acknowledged By: 10/26/2023 10:16 /katey/ JAMISON HERNANDEZ RN REGISTERED NURSE --- Original Document --- 10/24/23 PHARMACY CALL CENTER MEDICATION RENEWAL REQUEST: Medication renewal(s) requested by patient for: Non-controlled substance(s): SHERYL SERRANO is requesting a renewal of the following prescription (s): * uses 5 units before each meal* INSULIN,ASPART(EQV-NOVLG)10 0UN/ML FLXPEN [id number] 05/13/2023 05/12/2022 05/06/2023 1 URVASHI MATHEWS 28.32 INJECT 5 UNITS UNDER THE SKIN TWICE A DAY TO DECREASE BLOOD SUGAR-- If clinically appropriate, please renew. Meds to be MAILED Active and Recently Outpatient Medications (excluding Supplies): Active Outpatient Medications Status 1) ACCU-CHEK GUIDE (GLUCOSE) TEST STRIP USE 1 STRIP ACTIVE THREE TIMES A DAY TO CHECK BLOOD SUGAR--USE WITHIN 3 MINUTES OF REMOVING FROM CONTAINER 2) AZELASTINE 137MCG/SPRAY 200D NASAL INHL SPRAY 1 PUFF ACTIVE IN EACH NOSTRIL TWICE A DAY FOR NASAL SYMPTOMS 3) CYCLOSPORINE 0.05% (PF) OPH EMUL 0.4ML INSTILL 1 DROP ACTIVE BOTH EYES TWICE A DAY 4) DIALYVITE TAB TAKE 1 TABLET BY MOUTH EVERY DAY ACTIVE 5) DM 10/GUAIFENESN 100MG/5ML (AF & SF) LIQ TAKE 1 ACTIVE TEASPOONFUL BY MOUTH EVERY 4 HOURS NEEDED FOR COUGH AND CONGESTION 6) INSULIN,GLARGINE-YFGN 100UNIT/ML PEN 3ML INJECT 18 ACTIVE UNITS UNDER THE SKIN EVERY DAY FOR DIABETESDISCARD PEN 28 DAYS AFTER INITIAL USE 7) LEVOTHYROXINE NA (SYNTHROID) 200MCG TAB TAKE ONE ACTIVE TABLET BY MOUTH EVERY DAY FOR THYROID 8) MONTELUKAST NA 10MG TAB TAKE ONE TABLET BY MOUTH ACTIVE EVERY DAY 9) PANTOPRAZOLE NA 40MG EC TAB TAKE ONE TABLET BY MOUTH ACTIVE EVERY DAY ONE-HALF HOUR BEFORE EATING. 10) PRAVASTATIN NA 40MG TAB TAKE ONE TABLET BY MOUTH AT ACTIVE BEDTIME FOR CHOLESTEROL 11) TIOTROPIUM 2.5MCG/ACTUAT 60D ORAL INHL INHALE TWO ACTIVE PUFFS BY INHALATION EVERY DAY FOR ASTHMA 12) VANICREAM TOP CREAM APPLY THIN LAYER TOPICALLY EVERY ACTIVE DAY FOR DRY SKIN Active Non-VA Medications Status 1) Non-VA CALCIUM CARBONATE TAB,CHEWABLE ONE TABLET ACTIVE MOUTH FOUR TIMES A DAY NEEDED 2) Non-VA COENZYME Q10 CAP/TAB 1 TABLET COENZYME Q10 ACTIVE 100MG MOUTH EVERY DAY 3) Non-VA FISH OIL 1000MG (500MG DHA/EPA) CAP 1200MG ACTIVE MOUTH EVERY DAY 4) Non-VA LORATADINE 10MG TAB 10MG MOUTH EVERY DAY ACTIVE NEEDED 5) Non-VA NITROGLYCERIN 0.4MG SL TAB 0.4MG UNDER THE ACTIVE TONGUE NEEDED 6) Non-VA VITAMIN E 180MG (400UNIT) CAP 400UNIT MOUTH ACTIVE EVERY DAY 7) Non-VA ZINC SULFATE TAB 50MG MOUTH EVERY DAY ACTIVE 19 Total Medications Future appointments: 11/17/2023 13:30 MSP AUD TWELVE This note was created by a [address] [facility] employee.Replies to this message are not monitored. Please do not reply back to the author of this message. If not renewing a medication, please have your clinic contact patient with reason. Thank you. /daljit JASSO RESIDENT CARE COORDINATOR VISN 10 [employer] STITCHER FEEDER Signed: 10/24/2023 21:46 Receipt Acknowledged By: 10/25/2023 22:27 /katey/ Urvashi Mathews MD Physician 10/26/2023 ADDENDUM STATUS: UNSIGNED You may not VIEW this UNSIGNED Addendum. URVASHI MATHEWS [facility] October 24, 2023 09:44 PM PHARMACY NOTE: LOCAL TITLE: PHARMACY CALL CENTER MEDICATION RENEWAL REQUEST STANDARD TITLE: PHARMACY NOTE DATE OF NOTE: OCTOBER 24, 2023@21:44 ENTRY DATE: OCTOBER 24, 2023@21:45 AUTHOR: FOSTER JASSO EXP COSIGNER: URGENCY: STATUS: COMPLETED PHARMACY CALL CENTER MEDICATION RENEWAL REQUEST Has ADDENDA Medication renewal(s) requested by patient for: Non-controlled substance(s): SHERYL SERRANO is requesting a renewal of the following prescription (s): *[place] uses 5 units before each meal* INSULIN,ASPART(EQV-NOVLG)10 0UN/ML FLXPEN [id number] 05/13/2023 05/12/2022 05/06/2023 1 URVASHI MATHEWS H 28.32 INJECT 5 UNITS UNDER THE SKIN TWICE A DAY TO DECREASE BLOOD SUGAR-- If clinically appropriate, please renew. Meds to be MAILED Active and Recently Outpatient Medications (excluding Supplies): Active Outpatient Medications Status 1) ACCU-CHEK GUIDE (GLUCOSE) TEST STRIP USE 1 STRIP ACTIVE THREE TIMES A DAY TO CHECK BLOOD SUGAR--USE WITHIN 3 MINUTES OF REMOVING FROM CONTAINER 2) AZELASTINE 137MCG/SPRAY 200D NASAL INHL SPRAY 1 PUFF ACTIVE IN EACH NOSTRIL TWICE A DAY FOR NASAL SYMPTOMS 3) CYCLOSPORINE 0.05% (PF) OPH EMUL 0.4ML INSTILL 1 DROP ACTIVE BOTH EYES TWICE A DAY 4) DIALYVITE TAB TAKE 1 TABLET BY MOUTH EVERY DAY ACTIVE 5) DM 10/GUAIFENESN 100MG/5ML (AF & SF) LIQ TAKE 1 ACTIVE TEASPOONFUL BY MOUTH EVERY 4 HOURS NEEDED FOR COUGH AND CONGESTION 6) INSULIN,GLARGINE-YFGN 100UNIT/ML PEN 3ML INJECT 18 ACTIVE UNITS UNDER THE SKIN EVERY DAY FOR DIABETESDISCARD PEN 28 DAYS AFTER INITIAL USE 7) LEVOTHYROXINE NA (SYNTHROID) 200MCG TAB TAKE ONE ACTIVE TABLET BY MOUTH EVERY DAY FOR THYROID 8) MONTELUKAST NA 10MG TAB TAKE ONE TABLET BY MOUTH ACTIVE EVERY DAY 9) PANTOPRAZOLE NA 40MG EC TAB TAKE ONE TABLET BY MOUTH ACTIVE EVERY DAY ONE-HALF HOUR BEFORE EATING. 10) PRAVASTATIN NA 40MG TAB TAKE ONE TABLET BY MOUTH AT ACTIVE BEDTIME FOR CHOLESTEROL 11) TIOTROPIUM 2.5MCG/ACTUAT 60D ORAL INHL INHALE TWO ACTIVE PUFFS BY INHALATION EVERY DAY FOR ASTHMA 12) VANICREAM TOP CREAM APPLY THIN LAYER TOPICALLY EVERY ACTIVE DAY FOR DRY SKIN Active Non-VA Medications Status 1) Non-VA CALCIUM CARBONATE TAB,CHEWABLE ONE TABLET ACTIVE MOUTH FOUR TIMES A DAY NEEDED 2) Non-VA COENZYME Q10 CAP/TAB 1 TABLET COENZYME Q10 ACTIVE 100MG MOUTH EVERY DAY 3) Non-VA FISH OIL 1000MG (500MG DHA/EPA) CAP 1200MG ACTIVE MOUTH EVERY DAY 4) Non-VA LORATADINE 10MG TAB 10MG MOUTH EVERY DAY ACTIVE NEEDED 5) Non-VA NITROGLYCERIN 0.4MG SL TAB 0.4MG UNDER THE ACTIVE TONGUE NEEDED 6) Non-VA VITAMIN E 180MG (400UNIT) CAP 400UNIT MOUTH ACTIVE EVERY DAY 7) Non-VA ZINC SULFATE TAB 50MG MOUTH EVERY DAY ACTIVE 19 Total Medications Future appointments: 11/17/2023 13:30 MSP AUD TWELVE This note was created by a [address] [facility] employee.Replies to this message are not monitored. Please do not reply back to the author of this message. If not renewing a medication, please have your clinic contact patient with reason. Thank you. /katey/ FOSTER JASSO RESIDENT CARE COORDINATOR VISN 10 [employer] STITCHER FEEDER Signed: 10/24/2023 21:46 Receipt Acknowledged By: 10/25/2023 22:27 /es/ Urvashi Mathews MD Physician 10/25/2023 ADDENDUM STATUS: COMPLETED PACT RN: Please reach out to . It appears that he is using the aspart insulin differently than how is prescribed. He has co managed care. If another doctor has changed his dosing, the request will need to go through co managed care. Thank you. PCP: Liliam Shine [place] /katey/ Urvashi Mathews MD Physician Signed: 10/25/2023 22:35 Receipt Acknowledged By: 10/26/2023 10:16 /es/ JAMISON HERNANDEZ, FRANCIA REGISTERED NURSE 10/26/2023 ADDENDUM STATUS: COMPLETED Zinc Plating Machine Operator spoke with spouse, Jagruti who is listed as veterans E-Contact. Per spouse takes the Insulin Aspart 5 units before meals BID, eats 2 meals a day (small breakfast and supper). Spouse reports sometimes he will eat snacks midday but he does NOT receive Insulin Aspart 5 units prior to the midday snacks. Spouse states the only time recieves an extra dose of insulin Aspart 5 units is when he consumes an alcoholic drink and this was instructed by his non-VA provider because alcohol contains sugars. Spouse states consumes an alcoholic beverage once every 2-3 months. Spouse reports veterans non-VA provider, Dr Dylan Xiong [facility], retired and is now seeing Dr. Anna Marie Oglesby. Alerting PCP to above information. /katey/ JAMISON HERNANDEZ RN REGISTERED NURSE Signed: 10/26/2023 10:23 Receipt Acknowledged By: 10/26/2023 20:15 /katey/ Urvashi Mathews MD Physician 10/26/2023 ADDENDUM STATUS: COMPLETED I will renew his aspart insulin as requested, without any changes to the current prescription, unless his non-VA clinician sends request otherwise to co-managed care. /katey/ Urvashi Mathews MD Physician Signed: 10/26/2023 20:16 Receipt Acknowledged By: * AWAITING SIGNATURE * [facility]
--- OUTSIDE RECORDS SUMMARY | 2023-10-29 13:52 | XMS_ITS | Encounter Summary ---
Author Name [facility] Organization [facility] Address [address], [place] [address] Support Name Relationship Address Phone SUZANNE SERRANO Next of Kin [address] [place] [address] ALANNAHWILMERMOLLYMIRANDA GranadoAN Emergency Contact [address] [place] [...] Relationship to Policy [place] MEDICARE (WNR) MEDICARE () RR PART A Feb 06, 2003 RR PART A [id number] [phone] JANETTERUDDY GranadoARD PATIENT MEDICARE (WNR) MEDICARE () RR PART B Feb 06, 2003 RR PART B [id number] ZACHRUDDYSHERYL PATIENT MEDICARE (WNR) MEDICARE () PART A Feb 06, 2003 PART A [id number] SHERYL SERRANO PATIENT MEDICARE (WNR) MEDICARE (M) PART B Feb 06, 2003 PART B [id number] SHERYL SERRANO PATIENT MEDICARE PART D (WNR) MEDICARE () PART D Jun 08, 2022 PART D [id number] SHERYL SERRANO PATIENT [employer] MEDICARE SECONDARY (NO B EXC) UPREH S Jun 08, 2009 [id number] SHERYL SERRANO PATIENT [employer] MEDICARE SUPPLEMEN KAREN MEDIC ARE SUPPL EMENT Jun 08, 2009 [id number] SHERYL SERRANO PATIENT Selected Encounter This section includes the information on record at [facility] for the Encounter. Date/Time Encounter Type Encounter Description Reason Provider Source October 15, 2023 02:30 PM OFF/OP EST OCTOBER X REQ PHY/QHP AUDIOLOGY ICD-10-CM Z01.118 Encntr for exam of ears and hearing w oth abnormal findings EUNICE CRAWFORD Marika Encounter Template Text not used by [facility] Assessments - Encounter Diagnoses This section includes the primary and secondary diagnoses documented for the Encounter. Date/Time Primary/Secondary Diagnosis Diagnosis Name Provider Source October 15, 2023 03:26 PM PRIMARY Encntr for exam of ears and hearing w oth abnormal findings ANNA CRAWFORD [facility] October 15, 2023 03:26 PM SECONDARY Encounter for fitting and adjustment of hearing aid ANNA CRAWFORD [facility] October 15, 2023 03:26 PM SECONDARY Impacted cerumen, bilateral RUHR,HERNESTO A [facility] October 15, 2023 03:26 PM SECONDARY Sensorineural hearing loss, bilateral ANNA CRAWFORD ITTA K [facility] October 15, 2023 03:26 PM SECONDARY Tinnitus, bilateral ANNA CRAWFORD ITTA Vannesa [facility] Plan of Treatment: Future Appointments (+ 6 months) and Future Tests (+/- 45 days) The Plan of Treatment section includes [facility] care activities for the [facility] This section includes future appointments and future orders which are active, pending or scheduled. Future Appointments This section includes appointments that were scheduled to occur 6 months from the date of the Encounter, up to a maximum of 20 appointments. The data comes from all [facility] treatment facilities. Appointment Date/Time Appointment Type Appointme nt Facility Name Nov 17, 2023 01:30 PM AMBULATORY - SURGERY [facility] Social History: Smoking Status (Most current) and Tobacco Use (All prior to encounter date) This section includes the most current, and the historical, smoking and tobacco- related health factors from the [facility] where the Encounter took place. Current Smoking Status This section includes the most current smoking, or tobacco-related health factor, from the [facility] facility where the Encounter took place. Date/Time Current Smoking Status Comment Facil ity Dec 18, 2022 01:00 PM VA-TOBACCO FORMER USER [facility] Tobacco Use History This section includes a history of the smoking, or tobacco-related health factors, that were collected on or before the date of the Encounter. The data comes from the [facility] where the Encounter took place. Date/Time Smoking Status/Tobacco Use Comment F acility Dec 18, 2022 01:00 PM VA-TOBACCO QUIT 15 YRS OR MORE [facility] November 05, 2021 10:00 AM VA-TOBACCO FORMER USER [facility] November 05, 2021 10:00 AM VA-TOBACCO QUIT 15 YRS OR MORE [facility] Dec 10, 2018 12:57 PM VA-TOBACCO FORMER USER [facility] Dec 10, 2018 12:57 PM VA-TOBACCO QUIT 15 YRS OR MORE [facility] Feb 25, 2018 12:23 PM VA-TOBACCO FORMER USER [facility] Feb 25, 2018 12:23 PM VA-TOBACCO QUIT 15 YRS OR MORE [facility] Apr 10, 2015 02:55 PM FORMER TOBACCO USER 7Y OR GREATE R [facility] Apr 27, 2014 10:17 AM FORMER TOBACCO USER 7Y OR GREATE R [facility] Jun 18, 2006 07:23 AM FORMER TOBACCO USER 7Y OR GREATE R [facility] Advance Directives: All historical and current Section Date Range: From patient's date of to the date document was created. This section includes ALL of a patient's completed or amended [facility] Advance and Rescinded Directives. The entries below indicate that a directive exists for the patient, but an actual copy is not included with this document. The data comes from all [facility]. Date Advance Directives Provider Source May 23, 2003 ADVANCE DIRECTIVE [facility] Encounter Notes: All associated encounter notes This section contains the clinical notes associated to the Encounter. Date/Time Encounter Note(s) Provider Source October 15, 2023 02:30 PM AUDIOLOGY NOTE: LOCAL TITLE: AUDIOLOGY CLINIC NURSING NOTE STANDARD TITLE: AUDIOLOGY NOTE DATE OF NOTE: OCTOBER 15, 2023@14:30 ENTRY DATE: OCTOBER 15, 2023@15:33:22 AUTHOR: HERNESTO RUTLEDGE EXP COSIGNER: URGENCY: STATUS: COMPLETED Reason for visit: Examination of hearing. Cerumen removal. Effusion (drainage) in ear canals: No Recent Otalgia (pain) in ear canals? No Puritis in ear canals: No History of Ear Surgery: No History/Currently wears hearing aids: Yes DICKSON's Right/Left Cerumen Removed: Yes AD soft impaction removed soft impaction removed Patient tolerated procedure. Nurse Patient Education: Patient, Family Member indicates readiness to learn and has been instructed on the following: Spouse helpful and assists with ear care and ear drops as needed. Participant(s) can repeat instructions to Refrain from using cotton swabs in ears Use Mineral oil therapy Ear Care handout provided. PLAN: Follow up in: PRN (as needed) /katey/ HERNESTO RUTLEDGE LPN LICENSED PRACTICAL NURSE Signed: 10/15/2023 15:35 HERNESTO RUTLEDGE [facility] October 15, 2023 12:04 PM AUDIOLOGY NOTE: LOCAL TITLE: AUDIOLOGY CLINIC NOTE STANDARD TITLE: AUDIOLOGY NOTE DATE OF NOTE: OCTOBER 15, 2023@12:04 ENTRY DATE: OCTOBER 15, 2023@12:04:40 AUTHOR: DAYANNA CRAWFORD EXP COSIGNER: URGENCY: STATUS: COMPLETED DIAGNOSIS: Encounter for examination of ears and hearing Sensorineural loss, bilateral Tinnitus, bilateral REASON FOR VISIT: HEARING EVALUATION AND HEARING AID SELECTION, 60 MINUTES: was seen in the clinic today for a comprehensive audiologic evaluation, hearing aid selection, hearing aid service, and counseling. LOCATION OF VISIT (ROOM NUMBER): [facility] The was last seen in this clinic on 09/25/2020. The is Service Connected for Hearing Loss . Duncan was accompanied by his , Lashay. The currently wears the following hearing aids: Hearing Aids (right/left): 03/15/20 SONOVA PHONAK AUDEO M90-R CHARLES R [id number] 04/05/23 618 VIBORG 03/15/20 SONOVA PHONAK AUDEO M90-R CHARLES L [id number] 04/05/23 61 VIBORG skeleton molds HISTORY: seen with a history of sensorineural hearing loss and tinnitus. He reported a possible decrease in hearing. 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 He stated he has a hard time understanding television. Pursuant to [facility] 1034-D section 5-B-1, Kaveh is eligible for a spare set of amplification, given his successful and reliable use. We will proceed with an upgrade of amplification at today's date under that provision. PROCEDURES: OTOSCOPY: Bilaterally: Cerumen Removed by Nurse. Normal anatomy post-removal. TYMPANOMETRY: RIGHT EAR: Type A Pressure: Normal Compliance: Normal Volume: Normal LEFT EAR: Type A Pressure: Normal Compliance: Normal Volume: Normal AUDIOMETRICS: Air conduction, bone conduction and speech testing were completed bilaterally. Transducer: Insert phones, Circumaural headphones Reliability: Good RIGHT EAR (Hz) 250 854 885 0291 1500 2000 3000 4000 6000 8000 Air: See Audiogram Display under Tools / AUDIOLOGY / ROES or see NILAM Database Bone: See Audiogram Display under Tools / AUDIOLOGY / ROES or see NILAM Database LEFT EAR (Hz) 250 125 123 0231 1500 2000 3000 4000 6000 8000 Air: See Audiogram Display under Tools / AUDIOLOGY / ROES or see NILAM Database Bone: See Audiogram Display under Tools / AUDIOLOGY / ROES or see NILAM Database - All thresholds are in dB HL * = Masked Threshold SRT: Spondees Right: 65 dB HL Left: 60 dB HL Pure tone results were consistent with speech studio receptionist thresholds. WORD RECOGNITION: Recorded / - word list RIGHT EAR: 48% Level: 90* dB LEFT EAR: 36% Level: 90* dB SUMMARY: Hearing is mostly stable as compared to the last examination. RIGHT EAR: Moderate sloping to profound sensorineural hearing loss with poor word recognition. LEFT EAR: Moderate sloping to profound sensorineural hearing loss with poor word recognition. DISCUSSION: - Results were reviewed with the patient. - Duncan continues to be a good candidate for hearing aid use. - Duncan has hearing loss that interferes with or restricts communication to the extent that it affects their active participation in the provision of health care services as determined by the insurance risk manager. AMPLIFICATION: - The veterans current hearing aids were cleaned and checked. Changed wax traps and vacuumed out microphone ports. Reprogrammed hearing aids to match todays Audiogram. Duncan reported improvement in audibility following adjustments. - Different styles/technologies were reviewed with consideration given to veterans listening situations and lifestyle needs. Duncan is interested in pursuing similar hearing aids to current devices. Will get him a new TV streamer. - Duncan counseled using a standard curriculum on expectations for new hearing aids, VA procedures and trial period. - Will use impressions on file. - Hearing aids ordered: Phonak OTC PR Groupeo L90-RL CHARLES hearing aids (silver starr, Size x receivers, skeleton cShells, AOVs, Wax traps, removal strings) were selected and ordered today. - Accessories ordered: TV Connector PLAN: - will be scheduled for a 60-minute hearing aid fitting appointment. - Regular follow-up recommended to monitor for changes in hearing, or as medically indicated. - Recommended mineral oil 2-3 drops per ear, on alternate nights, one time per month, and cleaning ear canal with soap and water using only his finger to apply soap to the outer ear and canal. Rinse out in shower. - PATIENT IS IN AGREEMENT WITH THIS PLAN. /katey/ DAYANNA CRAWFORD BEATER OPERATOR Signed: 10/15/2023 15:40 DAYANNA CRAWFORD [facility]"
--- OUTSIDE RECORDS SUMMARY | 2023-10-29 13:52 | XMS_ITS | Encounter Summary ---
Author Organization [facility] [place] Address [address] [facility] [address] [place] [address] Care Team Providers Care Document Review Attorney Name Role Phone Unavailable Primary Care Provider Unavailabl e Encounter Details Date Type Department Care Team (Late st Contact Info) Description 10/05/2023 Orders Only [facility] [place] [address] [place] [address] Darren Youssef MD [address] [place] [address] Social History Tobacco Use Types [...] Results * [facility] Results (10/05/2023) Pathologist [facility] WSTDKT/V 0.8 [facility] eKt/V ([place]) 1.25 [facility] spKt/V (Daugirdas II) 1.46 [facility] 10/05/2023 10/05/2023 [place] Ordering Provider LAB BLOOD ORDERABLE [facility] Contact Performing lab Unknown, [place] * HD KINETICS (10/05/2023) [facility] % Urea Reduction 71 65 - 80 % [facility] 10/05/2023 10/06/2023 6:3 7 AM CDT Narrative [facility] - 10/06/2023 Unless otherwise specified, test(s) performed at: [facility], [address] [place] [address], [place] [address] LOADER DEMOLDER: Rojas Kirkland M.D., Ph.D For any questions, please call customer service at FREQUENCY:MONTHLY Resulting Agency Comment Specimen source: Plasma Darren Youssef MD LAB BLOOD ORDERABLES [facility] See order comments or contact performing lab Unknown, [place] * SPECIAL CHEMISTRY (10/05/2023) [facility] Folate >24.0 ng/mL [facility] Comment: Reference Range: Deficient: ?<3.4 ng/mL Indeterminate: ??3.4-5.4 ng/mL Normal: ? >5.4 ng/mL Vitamin B-12 844 211 - 911 pg/mL [facility] Vitamin D, 25-OH, Total 67.7 30.0 - 100.0 ng/mL [facility] Comment: Please Note: ??Effective June 16, 2021, the methodology for this test has changed to the SIEMENS ATELLICA method 10/05/2023 10/06/2023 3:5 6 PM CDT Narrative Resulting Agency Comment Specimen source: Serum Darren Youssef MD LAB BLOOD BANK TEST ORDERABLES [facility] See order comments or contact performing lab Unknown, [place] * (ABNORMAL) [facility] Chemistry (10/05/2023) BUN 77(H) 6 - 19 [...] 10/06/2023 Unless otherwise specified, test(s) performed at: [facility], [address] [place] [id number] LOADER DEMOLDER: Rojas Kirkland M.D., Ph.D For any questions, please call customer service at FREQUENCY:MONTHLY Resulting Agency Comment Specimen source: Serum Darren Youssfe MD LAB BLOOD ORDERABLES Performing Organization Address [facility] de Phone Number [facility] See order comments or contact performing lab Unknown, [place] * TRACE ELEMENTS (10/05/2023) Aluminum 8 0 - 10 mcg/L [facility] Comment: This test was developed and its performance characteristics determined by [facility]. It has not been cleared or approved by the FDA. The laboratory is regulated under CLIA as qualified to perform high complexity testing. This test is used for clinical purposes. It should not be regarded as investigational or for research. 10/05/2023 10/06/2023 6:3 1 AM CDT Narrative [facility] - 10/06/2023 Unless otherwise specified, test(s) performed at: [facility], [address] [place] [address] LOADER DEMOLDER: Rojas Kirkland M.D., Ph.D For any questions, please call customer service at FREQUENCY:MONTHLY Resulting Agency Comment Specimen source: Serum Darren Youssef MD LAB BLOOD ORDERABLES Performing Organization Address [facility] de Phone Number [facility] See order comments or contact performing lab Unknown, [place] * (ABNORMAL) HEMATOLOGY (10/05/2023) Neutrophils 71.8 40.0 - 75.0 % [facility] [...] 10/05/2023 10/06/2023 6:2 0 AM CDT Narrative [facility] - 10/06/2023 Unless otherwise specified, test(s) performed at: [facility], [address] [place] [address], [place] [address] LOADER DEMOLDER: Rojas Kirkland M.D., Ph.D For any questions, please call customer service at FREQUENCY:MONTHLY Resulting Agency Comment Specimen source: Blood Darren Youssef MD LAB BLOOD ORDERABLES [facility] See order comments or contact performing [...] Hep B Core Total Ab Negative Negative [facility] Comment: Hep B Core Ab, Total appears during the acute infection stage and remains reactive/positive throughout the recovery stage. The above test result was obtained using [employer] IM chemiluminescent method. Results obtained with different assay methods or kits cannot be used interchangeably. Hepatitis C Antibody Nonreactive Nonreactive [facility] Comment: No HCV antibody detected. The [...] Plasma Darren Youssef MD LAB BLOOD ORDERABLES [facility] See order comments or contact performing lab Unknown, [place] * (ABNORMAL) [facility] Chemistry (10/05/2023) PTH 323(H) 16 - 80 pg/mL [facility] 10/05/2023 10/06/2023 8:2 3 AM CDT Narrative [facility] - 10/06/2023 Unless otherwise specified, test(s) performed at: [facility], [address] [place] [address], [place] [address] LOADER DEMOLDER: Rojas Kirkland M.D., Ph.D For any questions, please call customer service at FREQUENCY:MONTHLY Resulting Agency Comment Specimen source: Plasma Darren Youssef MD LAB BLOOD ORDERABLES Performing Organization Address [facility] Co de Phone Number [facility] See order comments or contact performing lab Unknown, [place] * (ABNORMAL) POST CHEMISTRY (10/05/2023) BUN Post Dialysis 22(H) 6 - 19 mg/dL [facility] 10/05/2023 10/06/2023 6:3 7 AM CDT Narrative [facility] - 10/06/2023 Unless otherwise specified, test(s) performed at: [facility], [address] [place] [address], [place] [address] LOADER DEMOLDER: Rojas Kirkland M.D., Ph.D For any questions, please call customer service at FREQUENCY:MONTHLY Resulting Agency Comment Specimen source: Plasma Darren Youssef MD LAB BLOOD ORDERABLES Performing Organization Address [facility] Co de Phone Number [facility] See order comments or contact performing lab Unknown, [place] documented in this encounter Visit Diagnoses Not on filedocumented in this encounter
--- OUTSIDE RECORDS SUMMARY | 2023-10-29 13:52 | XMS_ITS | Encounter Summary ---
Author Organization [facility] [place] Address [address] [place] [address] Care Team Providers Care Upstairs Maid Name Role Phone Unavailable Primary Care Provider Unavailabl e Encounter Details Date Type Department Care Team (Late st Contact Info) Description 10/21/2023 Orders Only [facility] [place] [address] [place] [address] Darren Youssef MD [address] [place] [address] Social History Tobacco Use Types [...] Priority Date/Time Associated Diagnosis Comments HEMATOLOGY Routine 10/21/2023 documented in this encounter Results * (ABNORMAL) HEMATOLOGY (10/21/2023) Hemoglobin 9.9(L) 14.0 - 18.0 g/dL [facility] Hemoglobin x 3 29.7(L) 42.0 - 54.0 % [facility] 10/21/2023 10/22/2023 7:1 8 AM CDT Narrative [facility] - 10/22/2023 Unless otherwise specified, test(s) performed at: [facility], [address] [place] [address], [place] [address] SNUFF DRIER: Rojas Kirkland M.D., Ph.D For any questions, please call customer service at FREQUENCY:OTHER Resulting Agency Comment Specimen source: Blood Darren Youssef MD LAB BLOOD ORDERABLES Performing Organization Address City/State/[facility] Co de Phone Number [facility] See order comments or contact performing lab Unknown, [place] documented in this encounter Visit Diagnoses Not on filedocumented in this encounter
--- OUTSIDE RECORDS SUMMARY | 2023-10-29 13:52 | XMS_ITS | Encounter Summary ---
Author Organization [facility] [place] Address [address] [place] [address] Care Team Providers Care Ur Coordinator Name Role Phone Unavailable Primary Care Provider Unavailabl e Encounter Details Date Type Department Care Team (Late st Contact Info) Description 10/19/2023 Treatment [facility] [place] [address] [place] [address] Darren Youssef MD [address] [place] [address] Social History Tobacco Use Types Packs/Day Years Used Date Smoking Tobacco: Never Assessed Sex and Gender Information Value Date Recorded Sex Assigned at Not on file Gender Identity Not on file Sexual Orientation Not on file documented as of this encounter Miscellaneous Notes * Dialysis Note - Darren Youssef MD - 10/19/2023 1:04 PM CDT Date: October 19, 2023 Patient Name: Korey Mackay : 1940 Chart #: [id number] Sex: M This patient was personally seen for a complete visit as part of routine monthly dialysis care. A review of the dialysis treatment, blood pressure, estimated dry weight and recent lab values was made. These were discussed with the patient and staff as necessary. Treatment Data for 10/19/2023 started at:11:34 AM Dialyzer: 180NRe Optiflux Na: 135 mEq/L Bicarb: 32 mEq/L Dialysate: 2.0 K, 2.5 Ca, 1.0 Mg, 100 Dextrose (G2251) Dialysate/Machine Temp (prescribed): 37 C Dialysate/Machine Temp (actual): 37.2 C BFR (prescribed): 450 BFR (actual): 450 Prescribed time: 03:30 EDW: 94.5 kg Access Type: Active (In Use):AVFistula-Standard/Left Forearm Pre Dialysis Vitals (for 10/19/2023 11:25 AM ) Pre BP (sit): 113/52 Pre Wt: 96.6 kg Temp: 97.6 F Post Dialysis Vitals (for 10/16/2023 3:03 PM ) Post BP (sit): 132/60 Post Wt: 94.9 kg Current Dialysis Vitals (for 10/19/2023 1:02 PM ) BP (sit): 116/51 AP(-) / UNIT AID: 202/225 Pulse: 69 Chairside data as of 10/19/2023 1:02 PM Last 3 Treatments 10/16/2023 10/14/2023 10/12/2023 EDW (kg) 94.5 94.5 94.5 Weight Pre (kg) 95 94.7 95.2 Weight Post (kg) 94.9 94.5 93.8 Dialytic Weight Loss (kg) -0.1 -0.2 -1.4 EDW Deviation (kg) 0.4 0.0 -0.7 BP Sit Pre 119/69 96/49 93/47 BP Sit Post 132/60 107/55 122/66 UF Rate (mL/kg/hr) 1 4 Prescribed BFR 450 450 450 Average Delivered BFR 400 450 460 Prescribed Treatment Time 03:30 03:30 03:30 Actual Treatment Time 03:30 03:33 03:25 Last 3 Values 10/09/2023 05/11/2023 03/13/2023 Access Flow 776 [id number] CORPORATE INVESTIGATOR: Darren Youssef MD LOCATION: [place] [phone] SCHEDULE: -W- 2nd Shift EDW: kg. DIALYZER: HD DURATION: NEEDLE SIZE: ANTICOAG: BATH: QB: ml/min QD: ml/min Subjective Tolerating dialysis well. 10/19/23: Korey had a tough winter in [place] and has not been feeling well. His energy has been low, dialysis causes fatigue that has been progressive. His BP has been soft but no symptomatic hypotension. He has been having episodes where he has pain in his neck, feels faint, has to lay down and his rubs his neck and he slowly improves. He has not blacked out but has felt close. Also pain in his feet and his rubs them sometimes in the middle of the night. He is having a nursing aid come out 4 times a week to help. 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 He has never suggested not coming or not wantingto come. He is doing to have a stress test in 10 days. Advanced Practitioner Subjective NEUROLOGY MANAGER 04/27/2023: Spoke with patient on dialysis. Leaving close to EDW. Denies SOB, chest pain, cramping or dizziness. AVF in use and functional. BP has been elevated. NEUROLOGY MANAGER 03/16/2023: Spoke with patient at chairside. reports he has been feeling better. Has severalfamily members with health issues. Has been stressful for him and . Leaving slightly below EDW.Denies SOB, chest pain, cramping or dizziness. Appetite good. AVF in use and functional. BP has been elevated. Weight adjusted today. NEUROLOGY MANAGER 02/25/2023: Spoke with patient at chairside. Excited to celebrate birthday tomorrow. reportshim not feeling well today; patient says he thinks he has pneumonia. No fever; energy good. Will likely go to Urgent Care after dialysis if needed. Leaving at EDW. Denies SOB, chest pain, cramping ordizziness. Appetite good. AVF in use and functional. BP has been elevated. Weight adjusted today. NEUROLOGY MANAGER 01/19/2023: Spoke with patient at chairside. reports him not feeling well; thinks it could be the [place]. Leaving slightly below EDW. Denies SOB, chest pain, cramping or dizziness. Appetite good. AVF in use and functional. BP has been elevated. Weight adjusted today. NEUROLOGY MANAGER 12/10/2022: Seen on dialysis. Leaving at or slightly below EDW. reported that he is doing better, he's coming out of his depression state. [facility] Denies SOB, chestpain, cramping or dizziness. AVF in use and functional. BP stable. NEUROLOGY MANAGER 11/12/2022: Spoke with patient at chairside. Doing well. Finally has dentures. Leaving close to EDW. Denies SOB, chest pain, cramping or dizziness. Appetite good. AVF in use and functional. BP has been elevated. NEUROLOGY MANAGER 10/08/2022: Seen on dialysis. Back form [place]. Reports stable treatments while out of state. AboveEDW. Denies SOB, chest pain, cramping or dizziness. Appetite good. AVF in use and functional. BP has been elevated. Weight adjusted today. Review of Systems None reported. 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 He now has two homes, one in [place] and one in [place]. He and his winter in [place]. They have one daughter that lives in [place], [place] and they have oneson (who's had drug problems). Exam Respiratory - Clear to auscultation bilaterally. Cardiovascular - Regular rate. Regular rhythm. Edema - 1+ leg edema. Access - LUE AVF with 2 small aneurysm, excellent t/b Medication List Medication Sig Start Date albuterol sulfate 90 mcg/actuation HFA aerosol inhaler Inhale 2 puff using inhaler every four hoursas needed Milo Low Dose Aspirin (aspirin) 81 mg tablet,delayed release (DR/EC) Take 1 tablet by mouth once aday Claritin (loratadine) 10 mg tablet Take 1 tablet by mouth once a day Co Q-10 (coenzyme q10) 100 mg capsule Take 1 capsule by mouth once a day Dialyvite (b complex 90-pwtue-w-biot-zinc) [phone] vj-wx-kgz-mg tablet Take 1 tablet by mouth every evening with meals Flonase Allergy Relief (fluticasone propionate) 50 mcg/actuation spray,suspension Ashley 1 spray intranasally once a day gentamicin in NaCl (iso-osm) 80 mg/100 mL piggyback 40 mg every two weeks as directed. irrigate affected area every 2 weeks hydrocortisone 2.5% cream Apply to affected area twice a day as needed Lantus U-100 Insulin (insulin glargine) 100 unit/mL solution Inject 18 unit subcutaneously every evening Levo-T (levothyroxine) 175 mcg tablet Take 1 tablet by mouth once a day MegaRed Jones-3 Krill Oil (byhmh-cb-5-fha-eio-wypfbbf-ast) 1,000-230-60 mg capsule Take 1 capsule by mouth once a day methyl salicylate-menthol 15-10% cream Apply to affected area three times a day as needed for pain Milk of Magnesia (magnesium hydroxide) 400 mg/5 mL suspension Take 15-30 ml by mouth once a day as needed nitroglycerin 0.4 mg tablet, sublingual Place 1 tablet under tongue as directed as needed for pain.for chest pain. May repeat every 5 min x 3. If no relief call 911. Novolog Flexpen U-100 Insulin (insulin aspart u-100) 100 unit/mL (3 mL) insulin pen Inject 5 unit subcutaneously three times a day with meals pravastatin 80 mg tablet Take 1 tablet by mouth at bedtime Restasis (cyclosporine) 0.05% dropperette Instill 1 drop into both eyes twice a day Robitussin Cough-Chest Paul DM (dextromethorphan-guaifenesin) 5-100 mg/5 mL liquid Take 5 ml by mouth every eight hours as needed senna (sennosides) 8.6 mg capsule Take 2 capsule by mouth twice a day as directed. only 1cap PM dose prior to dialysis Singulair (montelukast) 10 mg tablet Take 1 tablet by mouth at bedtime tiotropium bromide 18 mcg capsule, w/inhalation device Inhale 1 capsule using nebulizer once a day Tylenol Arthritis Pain (acetaminophen) 650 mg tablet extended release Take 1 tablet by mouth every eight hours as needed for pain Vitamin D3 (cholecalciferol (vitamin d3)) 50 mcg (2,000 unit) capsule Take 1 capsule by mouth once a day vitamin E (dl, acetate) 180 mg (400 unit) capsule Take 1 capsule by mouth once a day Wixela Inhub (fluticasone propion-salmeterol) 100-50 mcg/dose blister with device Inhale 1 puff as directed twice a day Allergy List Allergen Reaction Reaction Severity Onset Date HYDROCODONE Unknown~Unknown Lipitor Unknown lisinopril Unknown metoclopramide Unknown omeprazole Unknown Medications reviewed and no changes were made. Treatment and Adequacy Assessment BUN mg/dL 43 (10/09/23) 77 (10/05/23) 49 (05/13/23) 56 (04/08/23) 53 (03/16/23) UREA NITROGEN (MG/DL) IN SER/PLAS - POST DIALYSIS mg/dL 11 (10/09/23) 22 (10/05/23) 13 (05/13/23) 15 (04/08/23) 16 (03/16/23) URR % 74 (10/09/23) 71 (10/05/23) 73 (05/13/23) 73 (04/08/23) 70 (03/16/23) spKt/V Gotch 1.64 (10/09/23) 1.57 (05/13/23) 1.56 (04/08/23) 1.44 (03/16/23) 1.49 (02/11/23) eKdrt/V 1.39 (10/09/23) 1.33 (05/13/23) 1.31 (04/08/23) 1.22 (03/16/23) 1.26 (02/11/23) spKt/V (Daugirdas II) 1.5600 (10/09/23) 1.4600 (10/05/23) 1.5300 (05/13/23) 1.5100 (04/08/23) 1.4200 (03/16/23) Dialysis is adequate. Achieves prescribed time - Yes Achieves prescribed frequency - Yes Continue current prescription. Vascular Access Assessment Type of access: Fistula Surgeon - Urena Staff and patient report access is working well. Anemia Assessment HEMOGLOBIN (G/DL) IN BLOOD g/dL 10.6 (10/14/23) 10.4 (10/09/23) 10.0 (10/05/23) 9.8 (05/20/23) 10.0 (05/13/23) PLATELETS 1000/mcL 170 (10/09/23) 147 (10/05/23) 145 (05/13/23) 128 (04/08/23) 134 (03/11/23) FERRITIN ng/mL 903 (10/09/23) 927 (10/05/23) 992 (04/08/23) 865 (03/11/23) 866 (12/10/22) TRANSFERRIN SAT% % 50 (10/09/23) 36 (10/05/23) 66 (05/13/23) 87 (04/08/23) 37 (03/11/23) Hemoglobin is at goal. Iron Saturation is at goal. Ferritin is at goal. Will adjust MISTY and intravenous iron per protocol. Nutritional and Metabolic Assessment ALBUMIN (G/DL) g/dL 3.9 (10/09/23) 3.9 (10/05/23) 3.7 (05/13/23) 3.9 (04/08/23) 3.7 (03/11/23) Sodium mEq/L 138 (10/09/23) 131 (10/05/23) 136 (05/13/23) 141 (04/08/23) 136 (03/11/23) POTASSIUM (MMOL/L) IN SER/PLAS mEq/L 3.9 (10/09/23) 4.6 (10/05/23) 4.7 (05/13/23) 3.7 (04/08/23) 3.8 (03/11/23) BICARBONATE (CO2) mEq/L 28 (10/09/23) 23 (10/05/23) 23 (05/13/23) 23 (04/08/23) 26 (03/11/23) 25 OH VITAMIN D ng/mL 67.7 (10/05/23) 66.6 (04/08/23) Albumin is below goal. Encourage high-biological value protein intake. Oral Nutritional Supplement program. Potassium is at goal. Bicarbonate is above goal. Decrease bicarbonate in dialysate. Bone and Mineral Metabolism Assessment CALCIUM mg/dL 9.0 (10/09/23) 9.2 (10/05/23) 9.2 (05/13/23) 9.4 (04/08/23) 8.9 (03/11/23) CALCIUM (MG/DL) CORRECTED FOR ALBUMIN IN SER/PLAS mg/dL 9.1 (10/09/23) 9.3 (10/05/23) 9.4 (05/13/23) 9.5 (04/08/23) 9.1 (03/11/23) PHOSPHATE (MG/DL) IN SER/PLAS mg/dL 2.9 (10/09/23) 3.6 (10/05/23) 3.0 (05/13/23) 2.5 (04/08/23) 2.5 (03/11/23) CALCIUM PHOSPHORUS PRODUCT, COR 26 (10/09/23) 33 (10/05/23) 28 (05/13/23) 24 (04/08/23) 23 (03/11/23) IPTH pg/mL 435 (10/09/23) 323 (10/05/23) 178 (04/08/23) 215 (03/11/23) 210 (12/10/22) Corrected Calcium is at goal. Phosphorous is at goal. Intact PTH is at goal. Edging Machine Setter will adjust binders and vitamin D per protocol and continue to provide dietary education. Cardiovascular Assessment Blood pressures reviewed and are acceptable. Intradialytic weight gains are appropriate. Estimated dry weight is appropriate. Continue same cardiovascular medications. Transplant Status: Patient is not a candidate. Age >80 and co-morbidities Resuscitation Status No change to prescription today. I spoke with his primary care doctor (Dr. Oglesby) end of last week given her concerns about his health and the spells he is having. Will have stress test in 10 days. 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 She would like to continue dialysis and have stress test and investigate the spells further that he is having. She is aware that if he declines further and if his quality of life were no longer acceptable, hospice can be considered along with stopping dialysis. She never wants him to be in a mcc again and she has resources she is utilizing at home to keep him there and to help her care for him. Darren Youssef MD [ Signed And locked electronically On 10/19/2023 at 01:10:23 PM ] Transcribed: Darren Youssef ( 10/19/2023 ) documented in this encounter Plan of Treatment Not on file documented as of this encounter Visit Diagnoses Not on filedocumented in this encounter
--- OUTSIDE RECORDS SUMMARY | 2023-10-29 13:52 | XMS_ITS | Encounter Summary ---
Author Organization [facility] [place] Address [address] [place] [address] Care Team Providers Care Moth Exterminator Name Role Phone Unavailable Primary Care Provider Unavailabl e Encounter Details Date Type Department Care Team (Late st Contact Info) Description 10/07/2023 Orders Only [facility] [place] [address] [facility] [address] [place] [address] Darren Youssef MD [address] [place] [address] Social History Tobacco Use Types [...] (10/07/2023) Aluminum <5 0 - 10 mcg/L [facility] Comment: This test was developed and its performance characteristics determined by [facility]. It has not been cleared or approved by the FDA. The laboratory is regulated under CLIA as qualified to perform high complexity testing. This test is used for clinical purposes. It should not be regarded as investigational or for research. 10/07/2023 10/08/2023 7:0 7 PM CDT Narrative [facility] - 10/09/2023 Unless otherwise specified, test(s) performed at: [facility], [address] [place] [address], [place] [address] GREENHOUSE SUPERINTENDENT: Rojas Kirkland M.D., Ph.D For any questions, please call customer service at FREQUENCY:OTHER Resulting Agency Comment Specimen source: Serum Darren Youssef MD LAB BLOOD ORDERABLES [facility] See order comments or contact performing lab Unknown, [place] documented in this encounter Visit Diagnoses Not on filedocumented in this encounter
--- OUTSIDE RECORDS SUMMARY | 2023-10-29 13:52 | XMS_ITS | Clinical Summary ---
Author Organization [facility] Facility Address [address] [facility] [address] [place] [address] Care Team Providers Care Irrigation Teacher Name Role Phone Unavailable Primary Care Provider Unavailabl e Encounters Date Type Department Care Team Description 10/21/2023 Orders Only [facility] [place] [address] [place] [address] Darren Youssef MD 10/19/2023 Treatment [facility] [address] [place] [address] Darren Youssef MD 10/14/2023 Orders Only [facility] [address] [facility] [address] [place] [address] Darren Youssef MD 10/09/2023 Orders Only [facility] [address] [facility] [address] [place] [address] Darren Youssef MD 10/07/2023 Orders Only [facility] [place] [address] [facility] [address] [place] [address] Darren Youssef MD 10/05/2023 Orders Only [facility] [place] [address] [facility] [address] [place] [address] Darren Youssef MD from Last 3 Months [...] Date/Time Associated Diagnosis Comments HEMATOLOGY Routine 10/21/2023 HEMATOLOGY Routine 10/14/2023 [facility] RESULTS Routine 10/09/2023 HD KINETICS Routine 10/09/2023 POST CHEMISTRY Routine 10/09/2023 CHEMISTRY Routine 10/09/2023 HEMATOLOGY Routine 10/09/2023 CHEMISTRY Routine 10/09/2023 TRACE ELEMENTS Routine 10/07/2023 [facility] RESULTS Routine 10/05/2023 HD KINETICS Routine 10/05/2023 SPECIAL CHEMISTRY Routine 10/05/2023 CHEMISTRY Routine 10/05/2023 TRACE ELEMENTS Routine 10/05/2023 HEMATOLOGY Routine 10/05/2023 IMMUNO CHEMISTRY Routine 10/05/2023 CHEMISTRY Routine 10/05/2023 POST CHEMISTRY Routine 10/05/2023 HEMOGLOBIN A1C Routine 09/24/2020 11:00 AM CDT from Last 3 Months or Most Recently Relevant to Health Maintenance Results * (ABNORMAL) HEMATOLOGY (10/21/2023) Only the most recent of4 resultswithin the time period is included. Hemoglobin 9.9(L) 14.0 - 18.0 g/dL [facility] Hemoglobin x 3 29.7(L) 42.0 - 54.0 % [facility] 10/21/2023 10/22/2023 7:1 8 AM CDT Narrative [facility] - 10/22/2023 Unless otherwise specified, test(s) performed at: [facility], [address] [place] [address], [place] [address] CHARITY FUNDRAISER: Rojas Kirkland M.D., Ph.D For any questions, please call customer service at FREQUENCY:OTHER Resulting Agency Comment Specimen source: Blood Darren Youssef MD LAB BLOOD ORDERABLES [facility] [employer] [facility] See order comments or contact performing lab Unknown, [place] * HD KINETICS (10/09/2023) Only the most recent of2 resultswithin the time period is included. % Urea Reduction 74 65 - 80 % [facility] 10/09/2023 10/10/2023 4:3 3 AM CDT Narrative Resulting Agency Comment Specimen source: Plasma Darren Youssef MD LAB BLOOD ORDERABLES [facility] [employer] See order comments or contact performing lab Unknown, [place] * POST CHEMISTRY (10/09/2023) Only the most recent of2 resultswithin the time period is included. BUN Post Dialysis 11 6 - 19 mg/dL [facility] 10/09/2023 10/10/2023 4:3 3 AM CDT Narrative [facility] - 10/10/2023 Unless otherwise specified, test(s) performed at: [facility], [address] [place] [address], [place] [address] CHARITY FUNDRAISER: Rojas Kirkland M.D., Ph.D For any questions, please call customer service at FREQUENCY:MONTHLY Resulting Agency Comment Specimen source: Plasma Darren Youssef MD LAB BLOOD ORDERABLES [facility] See order comments or contact performing [...] 10/10/2023 Unless otherwise specified, test(s) performed at: [facility], [address] [place] [address], [place] [address] CHARITY FUNDRAISER: Rojas Kirkland M.D., Ph.D For any questions, please call customer service at FREQUENCY:MONTHLY Resulting Agency Comment Specimen source: Serum Darren Youssef MD LAB BLOOD ORDERABLES Performing Organization Address [facility] Co de Phone Number [facility] See order comments or contact performing lab Unknown, [place] * [facility] Results (10/09/2023) Only the most recent of2 resultswithin the time period is included. eKdrt/V 1.39 [facility] eKt/V Gotch [facility].39 [facility] eKt/V ([place]) 1.34 [facility] spKt/V (Daugirdas II) 1.56 [facility] nPCR_HD 0.88 [facility] spKt/V Gotch 1.64 [facility] ge Center WSTDKT/V 2.4 [facility] eNPCR 0.82 [facility] PCR 56.22 [facility] 10/09/2023 10/09/2023 [place] Ordering Provider LAB BLOOD ORDERABLE [facility] Contact Performing lab Unknown, [place] * TRACE ELEMENTS (10/07/2023) Only the most recent of2 resultswithin the time period is included. Aluminum <5 0 - 10 mcg/L [facility] Comment: This test was developed and its performance characteristics determined by [facility]. It has not been cleared or approved by the FDA. The laboratory is regulated under CLIA as qualified to perform high complexity testing. This test is used for clinical purposes. It should not be regarded as investigational or for research. 10/07/2023 10/08/2023 7:0 7 PM CDT Narrative [facility] - 10/09/2023 Unless otherwise specified, test(s) performed at: [facility], [address] [place] [address], [place] [address] CHARITY FUNDRAISER: Rojas Kirkland M.D., Ph.D For any questions, please call customer service at FREQUENCY:OTHER Resulting Agency Comment Specimen source: Serum Darren Youssef MD LAB BLOOD ORDERABLES Performing Organization Address [facility] Co de Phone Number [facility] [employer] See order comments or contact performing lab Unknown, [place] * SPECIAL CHEMISTRY (10/05/2023) [facility] Folate >24.0 ng/mL [facility] Comment: Reference Range: Deficient: ?<3.4 ng/mL Indeterminate: ??3.4-5.4 ng/mL Normal: ? >5.4 ng/mL Vitamin B-12 844 211 - 911 pg/mL [facility] Vitamin D, 25-OH, Total 67.7 30.0 - 100.0 ng/mL [facility] Comment: Please Note: ??Effective June 16, 2021, the methodology for this test has changed to the SIEMENS ATELLICA method 10/05/2023 10/06/2023 3:5 6 PM CDT Narrative Resulting Agency Comment Specimen source: Serum Darren Youssef MD LAB BLOOD BANK TEST ORDERABLES Performing Organization Address [facility] Co de Phone Number [facility] See order comments or contact performing lab Unknown, [place] * IMMUNO CHEMISTRY (10/05/2023) [facility] Hep B Surface Ag Negative Negative [facility] Hepatitis B Surface Ab 14 mIU/mL [facility] Comment: The anti-HBs (Hepatitis B surface [...] Hep B Core Total Ab Negative Negative [facility] [employer] Comment: Hep B Core Ab, Total appears during the acute infection stage and remains reactive/positive throughout the recovery stage. The above test result was obtained using [employer] IM chemiluminescent method. Results obtained with different assay methods or kits cannot be used interchangeably. Hepatitis C Antibody Nonreactive Nonreactive [facility] [employer] [facility] Comment: No HCV antibody detected. The above test result was obtained using [employer] IM chemiluminescent method. Results obtained with different assay methods or kits cannot be used interchangeably. S/CO Ratio 0.06 0.00 - 0.79 [facility] [employer] [facility] Comment: s/co ratio ?Interpretation ?Supplemental testing <0.80 ? Nonreactive ? No further testing required. 0.80-0.99 ? Equivocal ? HCV RNA Quantitative Real-Time PCR is recommended. 1.00->11.00 ?? Reactive ?HCV RNA Quantitative Real-Time PCR is recommended to distinguish active from resolved cases. 10/05/2023 10/06/2023 8:2 3 AM CDT Narrative Resulting Agency Comment Specimen source: Plasma Darren Youssef MD LAB BLOOD ORDERABLES [facility] [employer] See order comments or contact performing lab Unknown, [place] * (ABNORMAL) Hemoglobin A1c (09/24/2020 11:00 AM CDT) Hemoglobin A1C 5.8(H) 0.0 - 5.6 %A1c [facility] 09/24/2020 11:0 0 AM CDT 09/25/2020 12:06 PM CDT Checo Sky MD LAB BLOOD ORDERABLES [facility] from Last 3 Months or Most Recently Relevant to Health Maintenance
--- OUTSIDE RECORDS SUMMARY | 2023-10-29 13:53 | XMS_ITS | Data Portability ---
Author Organization [facility] Address [address] [place] [address] Assessment No assessment recorded. Plan of Treatment [...] Name and Address Organization Details Recorded Time 38988 Lipitor medicatio n other Not available Not available 08/03/2020 89379 5 RxNorm leg cramp ing Xiao snell [facility] 18:19:27 56194 lisinopri l medicatio n Not available Not available Not available 08/03/2020 26064 RxNorm Xiao Salas [facility] 18:19:46 54534 omeprazol e medicatio n diarrhea Not available Not available 08/03/2020 7646 RxNorm Xiao Salas [facility] 18:19:58 09842 metoclopr amide Not available Not available Not available Not available 08/03/2020 6915 RxNorm Xiao snell [facility] 18:20:17 Medications Not known to be on any medication Vitals Date Recorded Body temperature Provider Name a nd Address Organization Details Last Updated DateTime 08/03/2020 97.5 [degF] Xiao Salas [place] [facility] 08/03/2020 18:18:56 Social History None recorded. Functional Status None recorded. Mental Status None recorded. Family History Nothing Reported. Medical History No medical history recorded. Immunizations Vaccine Type Date Status Provider Name and Address Organization Details Recorded Time COVID-19, mRNA, LNP-S, PF, 30 mcg/0.3 mL dose 08/03/2020 completed jorge maynard [facility] [place] [facility] 08/03/2020 18:23:43 COVID-19, mRNA, LNP-S, PF, 30 mcg/0.3 mL dose 08/23/2020 completed Tiffanie snell [place] - [facility] 08/23/2020 16:46:11 Past Encounters Encounter ID Performer Location Encounter Start Date Encounter Closed Date Diagnosis/Indication Diagnosis SNOMED-CT Code [id number] LARISSA Goode 1st Dose Vaccine [place] [address] [place] [address] 08/03/2020 18:12:43 08/16/2020 08:23:48 Administration of SARS-CoV-2 antigen vaccine [id number] JOHN Oquendo [place] COVID Vaccine ([facility]) [address] [place] [address] 08/23/2020 15:11:25 11/21/2020 07:30:32 Administration of SARS-CoV-2 antigen vaccine [id number] Health Concerns Section Related Observation LastModified by Organization Detai ls LastModified Time None Recorded Concern Status LastModified by Organization Details LastModified Time None Recorded Advance Directives Directive None Recorded Payers Encounter Date Sequence Insurance Name Policy Number Policy Blanchard Covered Member ID Blanchard Member ID Guarantor Name 08/23/2020 1 [place] [employer] Korey Mackay [id number] Korey Mackay 08/03/2020 1 [place] [employer] Korey Mackay [id number] Korey Mackay
--- OUTSIDE RECORDS SUMMARY | 2023-10-29 13:53 | XMS_ITS | Clinical Summary ---
Author Organization [employer] [facility] Address [place], [place] [address] Care Team Providers Care Water Truck Driver Name Role Phone Anna Marie Oglesby DO Primary Care Provider [phone] [facility] [place] Unavailable Allergies Active Allergy Reactions Criticality Noted [...] 10 mg by mouth once daily. 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 Overview: Status post [...] Encounters Date Type Department Care Team Description 10/27/2023 2:15 PM CDT Office Visit [address] [address] Patricia Nichols MD Follow Up (Cyst of perineum) 10/27/2023 Travel 10/26/[address] [address] Anna Marie Oglesby, DO Concerns 10/22/2023 Telephone [facility] [address] [place] [address] Anna Marie Oglesby, DO 10/20/2023 2:00 PM CDT Office Visit [address] [address] Patricia Nichols MD Follow Up (Cyst of perineum) 10/20/2023 Travel 10/14/2023 3:00 PM CDT Office Visit [address] [address] Anna Marie Oglesby, DO Blood Pressure (Low BP during dialysis ) 10/13/2023 1:30 PM CDT Office Visit [address] [address] Patricia Nichols MD Consult (Perianal abcess) 10/13/2023 Travel from Last 3 Months Immunizations Name Administration Dates Next Due COVID-19 vaccine ([employer] 30mcg/0.3mL) 12YO+ BIVALENT PF, MDV 03/17/2022 COVID-19 vaccine ([employer] 30mcg/0.3mL) 12YO+ ALY-SUCROSE PF, MDV 10/10/2021 COVID-19 vaccine ([employer] 30mcg/0.3mL) PF, MDV 04/04/2021,08/23/2020,08/03/2020 Hep B [...] Sign Reading Time Taken Comments Blood Pressure 154/63 10/27/2023 2:10 PM CDT Pulse 81 10/27/2023 2:10 PM CDT Temperature 36.9 ??C (98.4 ??F) 2023 1 0:49 AM CDT Respiratory Rate 16 03/03/2023 12:3 7 PM CDT Oxygen Saturation 93% 10/27/2023 2:1 0 PM CDT Inhaled Oxygen Concentration - - Weight 93.9 kg (207 lb) 10/20/2023 1:58 PM CDT Previous visit Height 182.9 cm (6') 03/03/2023 12:37 PM CDT Body Mass Index 28.07 03/03/2023 12:37 PM CDT Plan of Treatment Upcoming Encounters Date Type Department Care Team (Late st Contact Info) Description 10/29/2023 2:00 PM CDT Ancillary Procedure [facility] & [address] [address] 11/10/2023 1:15 PM CDT Office Visit [facility] [address] [place] [address] Patricia Nichols MD [address] [place] [address] 11/12/2023 1:[address] [facility] [address] [place] [address] 11/19/2023 Cardiac Device Check [facility] [employer] [phone] 01/19/2024 1:00 PM CDT Cardiac Device Check [facility] at [facility] [address] [place] [phone] 03/03/2024 1:30 PM CDT Office Visit [facility] [address] [facility] [address] [place] [phone] Pankaj Brownlee MD [address] [facility] [address] [place] [address] Health Maintenance Due Date Last Done Comments [...] 12/18/2022, 06/29/2012 Medical Devices Implanted Type Area Complaint Supervisor Device Identifier Shelf Expiration Date Model / Serial / Lot Screw Sm Joint 3.5x80mm Os Slf Tppng Bob - [id number] Implanted:Qty: 1 on 04/15/2015 by Rj Bui MD at [facility] Left: Leg [employer] [id number]# / / Screw Sm Joint 4x85mm [employer] Lock Slf Tppng [address] - [id number] Implanted:Qty: 1 on 04/15/2015 by Rj Bui MD at [facility] Left: Leg [employer] [id number]# / / Screw Sm Joint 3.5x75mm Os Slf Tppng Bob - [id number] Implanted:Qty: 1 on 04/15/2015 by Rj Bui MD at [facility] Left: Leg [employer] [id number]# / / Screw Sm Joint 3.5x85mm Os Slf Tppng Bob - [id number] Implanted:Qty: 1 on 04/15/2015 by Rj Bui MD at [facility] Left: Leg [employer] [id number]# / / Plate Tib Lt 10 Hole [employer] Pro[employer] Lateral - [id number] Implanted:Qty: 1 on 04/15/2015 by Rj Bui MD at [facility] Left: Leg [employer] [id number]# / / Screw Sm Joint 3.5x28mm Os Slf Tppng Bob - [id number] Implanted:Qty: 1 on 04/15/2015 by Rj Bui MD at [facility] Left: Leg [employer] [id number]# / / Screw Sm Joint 3.5x30mm Os Slf Tppng Bob - [id number] Implanted:Qty: 1 on 04/15/2015 by Rj Bui MD at [facility] Left: Leg [employer] [id number]# / / Screw Sm Joint 3.5x32mm Os Slf Tppng Bob - [id number] Implanted:Qty: 1 on 04/15/2015 by Rj Bui MD at [facility] Left: Leg [employer] [id number]# / / Screw Sm Joint 4x26mm [employer] Lock Slf Tppng [address] - [id number] Implanted:Qty: 1 on 04/15/2015 by Rj Bui MD at [facility] Left: Leg [employer] [id number]# / / Explanted Type Area Complaint Supervisor Device Identifier Shelf Expiration Date Model / Serial / Lot K-Wire [employer] 10pk - [id number] Explanted:Qty: 2 on 04/15/2015 at [facility] Left: Leg [employer] [id number]# / / Procedures Procedure Name Priority Date/Time Associated Diagnosis Comments PATH TISSUE EXAM Routine 10/13/2023 2:23 PM CDT Cyst of perineum from Last 3 Months Results * PATH TISSUE EXAM (10/13/2023 2:23 PM CDT) Case Report Pathology Report ?Case: [id number] ? Authorizing Provider: ??Patricia Nichols MD ??Collected: ? 10/13/2023 1423 ? Ordering Location: ? [facility] ?? Received: ?10/13/2023 1450 ? Clinic ? Pathologist: ? Jonathan Dutton MD ? Specimen: ?Perianal, excision/drain age right perianal cyst ? 10/16/2023 2:03 PM CDT [facility] Final Diagnosis A) RIGHT PERIANAL CYST, EXCISION: 1. Features consistent with perianal abscess 2. Negative for viral cytopathic change, dysplasia, and malignancy 10/16/2023 2:03 PM T [facility] Clinical Information Right perianal cyst 10/16/2023 2:03 PM T [facility] Gross Description A) Received in formalin, labeled with the patient's name and right perianal cyst, is a 3.3 x 2.8 1.0 cm aggregate of fragmented rubbery alatorre to purple-red tissue and skin. ??There is a 2.5 x 0.9 cm tract possibly consistent with a disrupted cyst. ??Representati ve sections are submitted in 1 cassette. EKW 10/14/2023 10/16/2023 2:03 PM CDT [facility] Microscopic Description The final diagnosis is based on microscopic examination of appropriate sections of all specimens. 10/16/2023 2:03 PM CDT [facility] Additional Information Interpreted at [facility] - [address] [address] 10/16/2023 2:03 PM CDT [facility] Other PERIANAL SWAB / Unknown Non-Blood / Unknown 10/13/2023 2:23 PM CDT 10/13/2023 2:50 PM CDT Patricia Nichols MD PATHOLOGY/[facility] [address] [place] [address], from Last 3 Months Advance Directives Documents on File Type Date Recorded Patient Parking Lot Spotter Expl anation Healthcare Directive 06/09/2019 12:00 AM Power of Rent And Housing Investigator 07/19/2006 * Full Code (Latest Code Status [...] Comments Code Status Discussion: Discussed Care Teams Water Truck Driver Relationship Specialty Start Date End Date Anna Marie Oglesby DO [facility] [place] [address] [place] [address] PCP - General Family Practice 10/06/22 [facility] [address] [facility] [address] 01/02/23
--- OUTSIDE RECORDS SUMMARY | 2023-10-29 13:53 | XMS_ITS | Clinical Summary ---
Author Organization [facility] Address [address] [place] [address] Phone Care Team Providers Care Squeegee Tender Name Role Phone Pcp, None MD [...] Comments Blood Pressure 155/68 07/24/2020 5:30 PM SOFTWARE QUALITY TEST ENGINEER Pulse 73 07/24/2020 5:30 PM SOFTWARE QUALITY TEST ENGINEER Temperature 36.7 ??C (98 ??F) 07/24/2020 5:15 PM SOFTWARE QUALITY TEST ENGINEER Respiratory Rate 20 07/24/2020 5:30 PM SOFTWARE QUALITY TEST ENGINEER Oxygen Saturation 98% 07/24/2020 5:30 PM SOFTWARE QUALITY TEST ENGINEER Inhaled Oxygen Concentration - - Weight 102 kg (224 lb) 07/24/2020 8:00 AM SOFTWARE QUALITY TEST ENGINEER Height 182.9 cm (6') 07/24/2020 8:00 AM SOFTWARE QUALITY TEST ENGINEER Body Mass Index 30.38 07/24/2020 8:00 AM SOFTWARE QUALITY TEST ENGINEER Plan of Treatment Not on file Care Teams Squeegee Tender Relationship Specialty Start Date End Date Pcp, None, PCP - General 07/24/20
== END 2023-10-29 13:49 | disposition home or self-care (01) ==
LOC: RAD 13:48
PROVIDERS: PCP Family Medicine; Visit Provider Family Medicine
DX: I25.5 Ischemic cardiomyopathy (principal); I34.0 Nonrheumatic mitral (valve) insufficiency
CPT/HCPCS: 93306

== ENCOUNTER 2024-05-23 15:50 | Emergency (ER) | payer MEDICARE, OTHER, SELFPAY ==
[2024-05-23] VITALS (45 sets, daily range): BP systolic 104–147; BP diastolic 49–105; PULSE 68–79; RESP 18–20; TEMP 36.4; O2SAT 89–99; BMI 27.1
--- OUTSIDE RECORDS SUMMARY | 2024-05-23 15:53 | XMS_ITS | Encounter Summary ---
Author Name [place] Address [address] [place] [address] Care Team Providers Care Skull Chopper Name Role Phone RODRÍGUEZ MATHEWS Primary Care [...] Blanchard's Name Patient's Relationship to Policy Blanchard [facility] (WNR) MEDICARE ADVANTAGE [facility] (WNR) Jun 08, 2023 [id number] ALANNAHTODDRUDDY GranadoARD PATIENT MEDICARE (WNR) MEDICARE (M) RR PART A Feb 06, 2003 RR PART A [id number] RUDDY SERRANOARD PATIENT MEDICARE (WNR) MEDICARE (M) RR PART B Feb 06, 2003 RR PART B [id number] ALANNAHTODDRUDDY GranadoARD PATIENT MEDICARE PART D (WNR) MEDICARE (M) PART D Jun 08, 2022 PART D [id number] ALANNAHTODDRUDDY GranadoARD PATIENT [employer] MEDICARE SECONDARY (NO B EXC) [facility] Jun 08, 2009 [id number] SHERYL SERRANO PATIENT Selected Encounter This section includes the information on record at [place] for the Encounter. Date/Time Encounter Type Encounter Description Reason Pro vider Source May 28, 2023 01:44 PM Outpatient Encounter [facility]-REFER TO [facility] Encounter Template Text not used by [place] [...] 15, 2023 02:30 PM AMBULATORY - SURGERY [facility] Nov 17, 2023 01:30 PM AMBULATORY - SURGERY [facility] Advance Directives: All historical and current [...] May 23, 2003 ADVANCE DIRECTIVE [facility] Encounter Notes: All associated encounter notes This section contains the clinical notes associated to the Encounter. Date/Time Encounter Note(s) Provider Source May 28, 2023 01:44 PM HOME HEALTH NOTE: LOCAL TITLE: HOME HEALTH TELEPHONE NOTE STANDARD TITLE: HOME HEALTH NOTE DATE OF NOTE: MAY 28, 2023@13:44 ENTRY DATE: MAY 28, 2023@13:44:50 AUTHOR: TYE CLARK COSIGNER: URGENCY: STATUS: COMPLETED Date: MAY 28, 2023 SHERYL SERRANO, [id number] [ ] Called patient/SO. [ ] Called by patient/SO [ ] Called agency: [X] Called by agency: [ ] Called other: [ ] Called by other: Active Inpatient, Outpatient and Clinic Medications (including Supplies): No Medications Found Problem: [facility] called and [place] & would like PROPAGATION WORKER HM services. Agency states that he wants their services & for them to get the referral. According to [facility] he was being seen by [facility] in [facility] & was receiving respite 37-58 hours per week, [facility] for PROPAGATION WORKER HM up to 20hr/week Informed [facility] that he will have to be seen by PCP here & if PCP feels that he meets the guidelines for the program then PCP will place orders at that time. Informed agency the importance of the [place] indicating that he has a preference of agencies. Intervention:Notified CCT Coordinator /es/ TYE CLARK R.N. RN Signed: 05/28/2023 13:50 Receipt Acknowledged By: 06/02/2023 11:16 /katey/ TYE LAZO RN [facility]
--- OUTSIDE RECORDS SUMMARY | 2024-05-23 15:53 | XMS_ITS | Encounter Summary ---
Author Name [facility] [place] Address [address] [place] [address] Care Team Providers Care Geriatric Nurse Name Role Phone RODRÍGUEZ MATHEWS Primary Care [...] Blanchard's Name Patient's Relationship to Policy Bl[facility] (WNR[facility] MEDICARE ADVANTAGE [facility] (WNR) Jun 08, 2023 [id number] MIKMOLLYRUDDY GranadoARD PATIENT MEDICARE (WNR) MEDICARE (M) RR PART A Feb 06, 2003 RR PART A [id number] [phone] RUDDY SERRANOARD PATIENT MEDICARE (WNR) MEDICARE (M) RR PART B Feb 06, 2003 RR PART B [id number] MIKMOLLYRUDDY GranadoARD PATIENT MEDICARE PART D (WNR) MEDICARE (M) PART D Jun 08, 2022 PART D [id number] ALANNAHTODDRUDDY GranadoARD PATIENT [employer] MEDICARE SECONDARY (NO B EXC) UPRE[facility] S Jun 08, 2009 [id number] SHERYL SERRANO PATIENT Selected Encounter This section includes the information on record at [place] for the Encounter. Date/Time Encounter Type Encounter Description Reason Pro vider Source Jun 02, 2023 08:47 AM Outpatient Encounter ADMIN PAT ACTIVTIES (MASNONCT) IHE Encounter Template Text not used by [place] [...] 15, 2023 02:30 PM AMBULATORY - SURGERY [facility] Nov 17, 2023 01:30 PM AMBULATORY - SURGERY [facility] Advance Directives: [...] May 23, 2003 ADVANCE DIRECTIVE [facility] Encounter Notes: All associated encounter notes This section contains the clinical notes associated to the Encounter. Date/Time Encounter Note(s) Provider Source Jun 02, 2023 08:47 AM NURSING NOTE: LOCAL TITLE: CONSULT CARE COMPLETION-TVC NOTE STANDARD TITLE: NURSING NOTE DATE OF NOTE: JUN 02, 2023@08:47 ENTRY DATE: JUN 02, 2023@08:47:34 AUTHOR: LARRY HODGE COSIGNER: URGENCY: STATUS: COMPLETED Communication received via: Traveling Consult [facility] care coordination complete. [place] has been scheduled with requested service. =====COPY/PASTE===== SCHEDULED 05/28/23 14:50 AAKASH STAPLES SONIA A [facility] CARE-UROLOGY Consult Appt. on 06/29/23 @ 08:00 [facility], CONSULT [id number] PID=MAY 22, 2023 PER CONSULT, PROVIDER KHUSHBOO YOUSSEF Future Appointments: Date Time Clinic ======= 06/29/2023 08:00 [facility] CARE-UROLOGY /es/ Larry Hodge, RN Registered Nurse Signed: 06/02/2023 08:49 LARRY HODGE [facility]
--- OUTSIDE RECORDS SUMMARY | 2024-05-23 15:54 | XMS_ITS | Encounter Summary ---
Author Name [place] Address [address] [place] [address] Care Team Providers Care Fitting Room Operator Name Role Phone RODRÍGUEZ MATHEWS Primary Care [...] Blanchard's Name Patient's Relationship to Policy Blanchard [facility] (WNR) MEDICARE ADVANTAGE [facility] (WNR) Jun 08, 2023 [id number] SHERYL MACKAY PATIENT MEDICARE (WNR) MEDICARE (M) RR PART A Feb 06, 2003 RR PART A [id number] MIKMOLLYRUDDY GranadoARD PATIENT MEDICARE (WNR) MEDICARE (M) RR PART B Feb 06, 2003 RR PART B [id number] ZACH SHERYL PATIENT MEDICARE PART D (WNR) MEDICARE (M) PART D Jun 08, 2022 PART D [id number] SHERYL MACKAY PATIENT [employer] MEDICARE SECONDARY (NO B EXC) UPREH S Jun 08, 2009 [id number] ZACH SHERYL PATIENT Selected Encounter This section includes the information on record at [place] for the Encounter. Date/Time Encounter Type Encounter Description Reason Provider Source Aug 10, 2023 03:15 PM HC PRO PHONE CALL 5-10 MIN TELEPHONE PRIMARY CARE ICD-10-CM H04.129 Dry eye syndrome of unspecified lacrimal gland STUB,JAMISON Granado IHE Encounter Template Text not used by [place] Assessments - Encounter Diagnoses This section includes the primary and secondary diagnoses documented for the Encounter. Date/Time Primary/Secondary Diagnosis Diagnosis Name Provider Source Aug 10, 2023 03:15 PM PRIMARY Dry eye syndrome of unspecified lacrimal gland STUB,JAMISON Granado [facility] Plan of Treatment: Future Appointments (+ 6 months) and Future Tests (+/- 45 days) The Plan of Treatment section includes future care activities for the patient from all [place] [facility]. This section includes future appointments and future orders which are active, pending or scheduled. Future Appointments This section includes appointments that were scheduled to occur 6 months from the date of the Encounter, up to a maximum of 20 appointments. The data comes from all [place] treatment facilities. Appointment Date/Time Appointment Type Appointme nt Facility Name October 15, 2023 02:30 PM AMBULATORY [facility] Nov 17, 2023 01:30 PM AM[facility]ULATORY [facility] Dec 31, 2023 01:30 PM AMBULATORY - MEDICINE [facility] Social History: Smoking Status (Most current) and Tobacco Use (All prior to encounter date) This section includes the most current, and the historical, smoking and tobacco- related health factors from the [place] facility where the Encounter took place. Current Smoking Status This section includes the most current smoking, or tobacco-related health factor, from the [place] facility where the Encounter took place. Date/Time Current Smoking Status Comment Facil ity Dec 18, 2022 01:00 PM VA-TOBACCO FORMER USER [facility] Tobacco Use History This section includes a history of the smoking, or tobacco-related health factors, that were collected on or before the date of the Encounter. The data comes from the [place] facility where the Encounter took place. Date/Time Smoking Status/Tobacco Use Comment F acility Dec 18, 2022 01:00 PM VA-TOBACCO QUIT 15 YRS OR MORE [facility] November 05, 2021 10:00 AM VA-TOBACCO FORMER USER [facility] November 05, 2021 10:00 AM VA-TOBACCO QUIT 15 YRS OR MORE [facility] Dec 10, 2018 12:57 PM VA-TOBACCO FORMER USER [facility] Dec 10, 2018 12:57 PM VA-TOBACCO QUIT 15 YRS OR MORE [facility] Feb 25, 2018 12:23 PM VA-TOBACCO FORMER USER [facility] Feb 25, 2018 12:23 PM VA-TOBACCO QUIT 15 YRS OR MORE [facility] Apr 10, 2015 02:55 PM FORMER TOBACCO USER 7Y OR GREATE R [facility] Apr 27, 2014 10:17 AM FORMER TOBACCO USER 7Y OR GREATE R [facility] Jun 18, 2006 07:23 AM FORMER TOBACCO USER 7Y OR GREATE R [facility] Advance Directives: All historical and current Section Date Range: From patient's date of to the date document was created. This section includes ALL of a patient's completed or amended [place] Advance and Rescinded Directives. The entries below indicate that a directive exists for the patient, but an actual copy is not included with this document. The data comes from all [place] facilities. Date Advance Directives Provider Source May 23, 2003 ADVANCE DIRECTIVE [facility] Encounter Notes: All associated encounter notes This section contains the clinical notes associated to the Encounter. Date/Time Encounter Note(s) Provider Source Aug 10, 2023 03:17 PM REPORT OF CONTACT: LOCAL TITLE: PATIENT CONTACT NOTE STANDARD TITLE: REPORT OF CONTACT DATE OF NOTE: AUG 10, 2023@15:17 ENTRY DATE: AUG 10, 2023@15:17:04 AUTHOR: JAMISON HERNANDEZ EXP COSIGNER: URGENCY: STATUS: COMPLETED Patient contact Name of [place]: SHERYL MACKAY Name/Relationship of Contact if other than : Suzanne--spouse Date & Time of Contact: Aug@15:17 Type of Contact: Telephone Reason for Contact: Eye drops Spoke with spouse, currently at dialysis during time of call. Hand Or Machine Paster relayed PCP message as requested to spouse Re: a request came through for me to order cyclosporin eye drops for Mikki Mackay [id number]. I ordered it, then the pharmacy discontinued it because it is restricted to the eye department. Please let know that only an eye doctor can order it. Eye clinic is self referral ([phone]). Thank you! Spouse states that are in [place] right now and will reach out to the Eye doctor sees in [facility] regarding the eye drop prescription. Hand Or Machine Paster thanked for call. /katey/ JAMISON HERNANDEZ RN REGISTERED NURSE Signed: 08/10/2023 15:22 JAMISON HERNANDEZ [facility]
--- OUTSIDE RECORDS SUMMARY | 2024-05-23 15:54 | XMS_ITS | Encounter Summary ---
Author Name Department of [place] Organization [place] Address [address] [place] [address] Care Team Providers Care Face Hardener Name Role Phone RODRÍGUEZ MATHEWS Primary Care [...] Blanchard's Name Patient's Relationship to Policy Blanchard [facility] MCR (WNR) MEDICARE ADVANTAGE [facility] (WNR) Jun 08, 2023 [id number] MIKMOLLYRUDDY GranadoARD PATIENT MEDICARE (WNR) MEDICARE (M) RR PART A Feb 06, 2003 RR PART A [id number] RUDDY SERRANOARD PATIENT MEDICARE (WNR) MEDICARE (M) RR PART B Feb 06, 2003 RR PART B [id number] MIKMOLLYRUDDY GranadoARD PATIENT MEDICARE PART D (WNR) MEDICARE (M) PART D Jun 08, 2022 PART D [id number] ALANNAHTODDRUDDY GranadoARD PATIENT [employer] MEDICARE SECONDARY (NO B EXC) UPREH S Jun 08, 2009 [id number] SHERYL SERRANO PATIENT Selected Encounter This section includes the information on record at [place] for the Encounter. Date/Time Encounter Type Encounter Description Reason Pro vider Source Jun 18, 2023 12:00 AM Outpatient Encounter ADMIN PAT ACTIVTIES (MASNONCT) IHE Encounter Template Text not used by [place] Plan of Treatment: Future Appointments (+ 6 months) and Future Tests (+/- 45 days) The Plan of Treatment section includes future care activities for the patient from all [place] treatmentfacilities. This section includes future appointments and future orders which are active, pending or scheduled. Future Appointments This section includes appointments that were scheduled to occur 6 months from the date of the Encounter, up to a maximum of 20 appointments. The data comes from all [place] treatment facilities. Appointment Date/Time Appointment Type Appointme nt Facility Name Jul 23, 2023 01:00 PM AMBULATORY - MEDICINE [facility] October 15, 2023 02:30 PM AMBULATORY - SURGERY [facility] Nov 17, 2023 01:30 PM AMBULATORY - SURGERY [facility] Advance Directives: All historical and current Section Date Range: From patient's date of to the date document was created. This section includes ALL of a patient's completed or amended [place] Advance and Rescinded Directives. The entries below indicate that a directive exists for the patient, but an actual copy is not included with this document. The data comes from all [facility]. Date Advance Directives Provider Source May 23, 2003 ADVANCE DIRECTIVE KINGS ANDREW [facility] Encounter Notes: All associated encounter notes This section contains the clinical notes associated to the Encounter. Date/Time Encounter Note(s) Provider Source Jun 18, 2023 12:00 AM NONVA CONSULT: LOCAL TITLE: COMMUNITY CARE-CONSULT RESULT NOTE STANDARD TITLE: NONVA CONSULT DATE OF NOTE: JUN 18, 2023 ENTRY DATE: JUL 07, 2023@12:48:02 AUTHOR: EMILY SR JR EXP COSIGNER: URGENCY: STATUS: COMPLETED VistA Imaging - Scanned Document UROLOGY OFFICE VISIT REPORT 06/18/23, KHUSHBOO YOUSSEF MD SCANNED DOCUMENT SIGNATURE NOT REQUIRED Electronically Filed: 07/07/2023 by: EMILY VIRGEN JR, JR [facility]
--- OUTSIDE RECORDS SUMMARY | 2024-05-23 15:54 | XMS_ITS ---
Author Name Department [place] Organization Department [place] Address [address] [place] [address] Care Team Providers Care Disease And Insect Control Boss Name Role Phone RODRÍGUEZ MATHEWS Primary Care [...] Blanchard's Name Patient's Relationship to Policy Blanchard [facility] MCR (WNR) MEDICARE ADVANTAGE [facility] (WNR) Jun 08, 2023 [id number] MIKMOLLYRUDDY GranadoARD PATIENT MEDICARE (WNR) MEDICARE (M) RR PART A Feb 06, 2003 RR PART A [id number] SHERYL SERRANO PATIENT MEDICARE (WNR) MEDICARE (M) RR PART B Feb 06, 2003 RR PART B [id number] MIKMOLLYSHERYL Granado PATIENT MEDICARE PART D (WNR) MEDICARE (M) PART D Jun 08, 2022 PART D [id number] ALANNAHTODDRUDDY GranadoARD PATIENT [employer] MEDICARE SECONDARY (NO B EXC) UPREH S Jun 08, 2009 [id number] SHERYL SERRANO PATIENT Selected Encounter This section includes the information on record at [place] for the Encounter. Date/Time Encounter Type Encounter Description Reason Provider Source Jun 25, 2023 11:43 AM Outpatient Encounter COMMUNITY CARE CONSULT EVONNE RUVALCABA E Encounter Template Text not used by NE [...] [place] treatment facilities. Appointment Date/Time Appointment Type Appointme nt Facility Name Jul 23, 2023 01:00 PM AMBULATORY - MEDICINE [facility] October 15, 2023 02:30 PM AMBULATORY - SURGERY [facility] Nov 17, 2023 01:30 PM AMBULATORY - SURGERY [facility] Advance Directives: All historical and current [...] 23, 2003 ADVANCE DIRECTIVE KINGS ANDREW [facility] Encounter Notes: All associated encounter notes This section contains the clinical notes associated to the Encounter. Date/Time Encounter Note(s) Provider Source Jun 25, 2023 11:43 AM NONVA NOTE: LOCAL TITLE: COMMUNITY CARE-KANCHAN SELF PRESENTING CARE COORD PLAN STANDARD TITLE: NONVA NOTE DATE OF NOTE: JUN 25, 2023@11:43 ENTRY DATE: JUN 25, 2023@11:44:07 AUTHOR: EVONNE RUVALCABA EXP COSIGNER: URGENCY: STATUS: COMPLETED COMMUNITY CARE-KANCHAN SELF PRESENTING CARE COORD PLAN NOTE Has ADDENDA Emergency Notification Intake Date Presenting to the Facility: Jun Method of Contact: Notified from [employer] worklist Notification ID: [id number] [facility] Ref[facility] Name: Hospital: [facility] Address: City: [place] State: [place] Zip Code: Phone : Community Facility Point of Contact: Name: Phone: Chief complaint: PER [facility] ED NOTE (COPY & PASTE): lt leg pain, onset 2 weeks ago, hx: dm, hemodialysis 83-year-old male medical history of hypertension, diabetes, hemodialysis, multiple surgeries to the left hip, left leg comes here today for left leg pain that started about 2 weeks ago. As per who is with patient she says the pain started in his calf area has now moved up to his hip area. denies any swelling to that leg. Patient has not gone to a PCP.. Primary Diagnosis: Arthritis of left hip - NFT54-XA M16.12, Secondary Diagnosis: Hip pain - EHC88-VX M25.559 Plan Condition: Stable. Prescriptions: [facility]: acetaminophen 325 mg oral tablet (Prescribe): 650 mg, 2 Tabs, Oral, TID, for 7 Days, PRN: as needed for pain, 42 Tabs, 0 Refill(s) lidocaine 1.8% topical film (Prescribe): 1 Patches, Topical, Daily, for 10 Days, leave on up to 12 hours, PRN: Pain (1-3)/Fever, 10 Patches, 0 Refill(s) , [facility]: gabapentin 100 mg oral capsule (Prescribe): 100 mg, 1 Caps, Oral, BID, for 10 Days, PRN: Pain 4 - 6 (Moderate), 20 Caps, 0 Refill(s) Patient was given the following educational materials: OSTEOARTHRITIS. Follow up with: Doctor No pcp no family, MED Within 1-2 days 03-Return immediately if symptoms worsen. Disposition Discharged Date of discharge: Jun Discharge to home SHERYL SERRANO Feb Admission Admission Date: 06/24/2023 Hospital: [facility] Type of Visit: ER [facility] ED PHYSICIAN RECORD SENT TO [facility] TO SCAN. /katey/ Evonne LÓPEZ, RN Registered Nurse Signed: 06/25/2023 11:49 Receipt Acknowledged By: 06/25/2023 14:38 /es/ AAYUSH VALDOVINOS 06/30/2023 08:12 /es/ Lary Hodge RN Registered Nurse 06/24/2023 ADDENDUM STATUS: COMPLETED VistA Imaging Scanned Document - Addendum. ER ED NOTE 06/24/[address] [facility] ER SCANNED DOCUMENT SIGNATURE NOT REQUIRED Electronically Filed: 06/26/2023 by: ASHELY LEWIS DENTISTRY TEACHEREVONNE RAMIREZ [facility]
--- OUTSIDE RECORDS SUMMARY | 2024-05-23 15:54 | XMS_ITS | Encounter Summary ---
Author Name Department [place] Address [address] [place] [address] Care Team Providers Care Photolith Operator Name Role Phone RODRÍGUEZ MATHEWS Primary [...] Blanchard's Name Patient's [facility] (WNR) MEDICARE ADVANTAGE [facility] (WNR) Jun 08, 2023 [id number] JANETTEVannesa SHERYL PATIENT MEDICARE (WNR) MEDICARE (M) RR PART A Feb 06, 2003 RR PART A [id number] MIKMOLLYRUDDY GranadoARD PATIENT MEDICARE (WNR) MEDICARE (M) RR PART B Feb 06, 2003 RR PART B [id number] [id number] JANETTERUDDY GranadoARD PATIENT MEDICARE PART D (WNR) MEDICARE (M) PART D Jun 08, 2022 PART D [id number] ALANNAHTODDVannesa SHERYL PATIENT [employer] MEDICARE SECONDARY (NO B EXC) [facility] Jun 08, 2009 [id number] SHERYL SERRANO PATIENT Selected Encounter This section includes the information on record at [place] for the Encounter. Date/Time Encounter Type Encounter Description Reason Provider Source May 27, 2023 06:05 AM Outpatient Encounter ADMIN PAT ACTIVTIES (MATTINONASTRID) KELLEY PERAZA IHMarika Encounter Template Text not used by [place] Plan of Treatment: Future Appointments (+ 6 months) and Future Tests (+/- 45 days) The Plan of Treatment section includes future care activities for the [facility] [place] [facility] This section includes future appointments and [...] 15, 2023 02:30 PM AMBULATORY - SURGERY [facility] Nov 17, 2023 01:30 PM AMBULATORY - SURGERY [facility] Social History: Smoking Status (Most current) [...] 18, 2022 01:00 PM VA-TOBACCO FORMER USER [facility] Tobacco Use History This section includes a history of the smoking, or tobacco-related health factors, that were collected on or before the date of the Encounter. The data comes from the [place] facility where the Encounter took place. Date/Time Smoking Status/Tobacco Use Comment F acsilva Dec 18, 2022 01:00 PM VA-TOBACCO QUIT 15 YRS OR MORE [facility] November 05, 2021 10:00 AM VA-TOBACCO FORMER USER [facility] November 05, 2021 10:00 AM VA-TOBACCO QUIT 15 YRS OR MORE [facility] Dec 10, 2018 12:57 PM VA-TOBACCO FORMER USER [facility] Dec 10, 2018 12:57 PM VA-TOBACCO QUIT 15 YRS OR MORE [facility] Feb 25, 2018 12:23 PM VA-TOBACCO FORMER USER [facility] Feb 25, 2018 12:23 PM VA-TOBACCO QUIT 15 YRS OR MORE [facility] Apr 10, 2015 02:55 PM FORMER TOBACCO USER 7Y OR GREATE R [facility] Apr 27, 2014 10:17 AM FORMER TOBACCO USER 7Y OR GREATE R [facility] Jun 18, 2006 07:23 AM FORMER TOBACCO USER 7Y OR GREATE R [facility] Advance Directives: All historical and current [...] 23, 2003 ADVANCE DIRECTIVE KINGS ANDREW [facility] Encounter Notes: All associated encounter notes This section contains the clinical notes associated to the Encounter. Date/Time Encounter Note(s) Provider Source May 27, 2023 06:05 AM VOICE PROFESSOR REFER RAL NOTE: LOCAL TITLE: TRAVELING COORDINATOR NOTE STANDARD TITLE: VOICE PROFESSOR REFERRAL NOTE DATE OF NOTE: MAY 27, 2023@06:05 ENTRY DATE: MAY 27, 2023@06:05:40 AUTHOR: KELLEY PERAZA EXP COSIGNER: URGENCY: STATUS: COMPLETED Traveling Vet consult activity for: incoming/outgoing consult care coordination, communication &/or chart review. /katey/ CELESTINE BARRERA TRAVELING COORDINATOR Signed: 05/27/2023 06:05 KELLEY PERAZA [facility]
--- OUTSIDE RECORDS SUMMARY | 2024-05-23 15:54 | XMS_ITS | Encounter Summary ---
Author Name Department of [place] Address [address] [place] [address] Care Team Providers Care Typewriter Assembler Name Role Phone URVASHI MATHEWS Primary Care [...] Blanchard's Name Patient's Relationship to Policy [facility] MCR (WNR) MEDICARE ADVANTAGE [facility] (WNR) Jun 08, 2023 [id number] JANETTEVannesa SHERYL PATIENT MEDICARE (WNR) MEDICARE (M) RR PART A Feb 06, 2003 RR PART A [id number] MIKMOLLYRUDDY GranadoARD PATIENT MEDICARE (WNR) MEDICARE (M) RR PART B Feb 06, 2003 RR PART B [id number] JANETTERUDDY GranadoARD PATIENT MEDICARE PART D (WNR) MEDICARE (M) PART D Jun 08, 2022 PART D [id number] ALANNAHTODDVannesa SHERYL PATIENT [employer] MEDICARE SECONDARY (NO B EXC) [facility] Jun 08, 2009 [id number] SHERYL SERRANO PATIENT Selected Encounter This section includes the information on record at [place] for the Encounter. Date/Time Encounter Type Encounter Description Reason Provider Source Jun 02, 2023 08:02 AM Outpatient Encounter ADMIN PAT ACTIVTIES (MASNONCT) PARTHA ARMSTRONG Marika Encounter Template Text not used by [place] Plan of Treatment: Future Appointments (+ 6 months) and Future Tests (+/- 45 days) The Plan of Treatment section includes future care activities for the patient from all [place] [facility]. This section includes future appointments and [...] 15, 2023 02:30 PM AMBULATORY - SURGERY [facility] Nov 17, 2023 01:30 PM AMBULATORY - SURGERY [facility] Social History: Smoking [...] Source May 23, 2003 ADVANCE DIRECTIVE LORRIEKINGS Hairston [facility] Encounter Notes: All associated encounter notes This section contains the clinical notes associated to the Encounter. Date/Time Encounter Note(s) Provider Source Jun 02, 2023 08:02 AM CYCLE ANALYST REFER RAL NOTE: LOCAL TITLE: TRAVELING COORDINATOR NOTE STANDARD TITLE: CYCLE ANALYST REFERRAL NOTE DATE OF NOTE: JUN 02, 2023@08:02 ENTRY DATE: JUN 02, 2023@08:02:28 AUTHOR: PARTHA ARMSTRONG EXP COSIGNER: URGENCY: STATUS: COMPLETED Please note, [facility] has scheduled requested urology through [facility]. Please monitor [facility] for records to be scanned or obtain records to review. SCHEDULED [facility] CARE-UROLOGY Consult Appt. on 06/29/23 @ 08:00 [facility], CONSULT [id number] PID=MAY 22, 2023 PER CONSULT 's Scheduled Provider AUTH#: [id number] DR. KHUSHBOO YOUSSEF [facility] [id number] [id number] P: [phone] F: [phone] NPI#: [id number] /katey/ PARTHA ARMSTRONG RN UTILIZATIONMANAGEMENT Signed: 06/02/2023 08:03 Receipt Acknowledged By: 06/06/2023 12:05 /es/ Urvashi Mathews MD Physician 06/02/2023 09:08 /es/ JAMISON HERNANDEZ RN REGISTERED NURSE PARTHA ARMSTRONG [facility]
--- OUTSIDE RECORDS SUMMARY | 2024-05-23 15:54 | XMS_ITS | Encounter Summary ---
Author Name Department of [place] Organization [place] Address [address] [place] [address] Care Team Providers Care Combination Machine Tool Operator Name Role Phone RODRÍGUEZ MATHEWS Primary [...] Blanchard's Name Patient's Relationship to Policy Blanchard [facility] M[facility] (WNR) MEDICARE ADVANTAGE [facility] (WNR) Jun 08, 2023 [id number] MIKMOLLYRUDDY GranadoARD PATIENT MEDICARE (WNR) MEDICARE (M) RR PART A Feb 06, 2003 RR PART A [id number] SHERYL SERRANO PATIENT MEDICARE (WNR) MEDICARE (M) RR PART B Feb 06, 2003 RR PART B [id number] MIKMOLLYSHERYL Granado PATIENT MEDICARE PART D (WNR) MEDICARE (M) PART D Jun 08, 2022 PART D [id number] ALANNAHTODDRUDDY GranadoARD PATIENT [employer] MEDICARE SECONDARY (NO B EXC) UPREH S Jun 08, 2009 [id number] SHERYL SERRNAO PATIENT Selected Encounter This section includes the information on record at [place] for the Encounter. Date/Time Encounter Type Encounter Description Reason Provider Source Jun 17, 2023 03:02 PM Outpatient Encounter COMMUNITY CARE CONSULT NAHOMY LOOE Encounter Template Text not used by [place] Plan of Treatment: Future Appointments (+ 6 months) and Future Tests (+/- 45 days) The Plan of Treatment section includes future care activities for the patient from all [place] treatmentfacilities. This section includes future appointments and future orders which are active, pending or scheduled. Future Appointments This section includes appointments that were scheduled to occur 6 months from the date of the Encounter, up to a maximum of 20 appointments. The data comes from all [place] treatment facilities. Appointment Date/Time Appointment Type Appointme nt Facility Name Jul 23, 2023 01:00 PM AMBULATORY - MEDICINE [facility] October 15, 2023 02:30 PM AMBULATORY - SURGERY [facility] Nov 17, 2023 01:30 PM AMBULATORY - SURGERY [facility] Advance Directives: All historical and [...] May 23, 2003 ADVANCE DIRECTIVE KINGS ANDREW [facility] Encounter Notes: All associated encounter notes This section contains the clinical notes associated to the Encounter. Date/Time Encounter Note(s) Provider Source Jun 17, 2023 03:03 PM NONVA NOTE: LOCAL TITLE: COMMUNITY CARE-KANCHAN SELF PRESENTING CARE COORD PLAN STANDARD TITLE: NONVA NOTE DATE OF NOTE: JUN 17, 2023@15:03 ENTRY DATE: JUN 17, 2023@15:03:04 AUTHOR: NAHOMY LOO EXP COSIGNER: URGENCY: STATUS: COMPLETED COMMUNITY CARE-KANCHAN SELF PRESENTING CARE COORD PLAN NOTE Has ADDENDA Emergency Notification Intake Date Presenting to the Facility: Jun Method of Contact: Notified from [employer] work[employer] Notification ID: [id number] [facility] Name: Hospital: [facility] Address: City: [place] State: [place] Zip Code: Phone : Community Facility Point of Contact: Name: Phone: Chief complaint: Pt here for bladder irrigation w/ gentamycin for prevention of chronic UTI 2x a week Hx ESRD M-W- Medication Reconciliation New levoFLOXacin (Levaquin 500 mg oral tablet)1 Tabs Oral every 24 hours (around the clock) for 7 Days. Refills: 0. Reexamination/Reevaluation Patient was re-evaluated, discussed the case with my attending Dr. Thayer discussed the case with Urology resident Dr. Olson who recommend the patient get the irrigation with gentamycin if patient had the medication or go to the office as a walking to get it down and to place becerril catheter on the patient to drain him. discussed with the patient, patient did not had the medication, a Becerril is going to be placed on him to drain him, patient will be discharged to go to the urology clinic as walking in for irrigation with gentamycin. Pt significant improvement in symptoms following treatment provided. Primary Diagnosis: Long-term current use of antibiotics for prevention of recurrent infection Z79.2 Disposition Discharged Date of discharge: Jun Discharge to home SHERYL SERRANO [place] Feb Admission Admission Date: 06/16/2023 Hospital: [facility] Type of Visit: ER MD ED note obtained and sent to [facility]. Clinical information on [facility] note -copy & paste from ED note. /katey/ NAHOMY BENÍTEZ,RN Signed: 06/17/2023 15:07 Receipt Acknowledged By: 06/19/2023 10:49 /es/ AAYUSH VALDOVINOS 08/21/2023 11:46 /es/ CJ BENÍTEZ RN 06/18/2023 10:41 /es/ Lary Hodge RN Registered Nurse 06/16/2023 ADDENDUM STATUS: COMPLETED VistA Imaging Scanned Document - Addendum. ER Visit, 06-16-23, [facility] SCANNED DOCUMENT SIGNATURE NOT REQUIRED Electronically Filed: 06/18/2023 by: [facility]OMY WALLIS [facility]
--- OUTSIDE RECORDS SUMMARY | 2024-05-23 15:56 | XMS_ITS | Encounter Summary ---
Author Name [place] Address [address] [place] [address] Care Team Providers Care Seo Marketing Specialist Name Role Phone BISIRODRÍGUEZ Primary Care Provider Unavailabl e Insurance Providers: [...] Name Patient's Relationship to Policy Blanchard [facility] (WNR) MEDICARE ADVANTAGE [facility] (WNR) Jun 08, 2023 [id number] JANETTERUDDY GranadoARD PATIENT MEDICARE (WNR) MEDICARE (M) RR PART A Feb 06, 2003 RR PART A [id number] MIKMOLLYRUDDY GranadoARD PATIENT MEDICARE (WNR) MEDICARE (M) RR PART B Feb 06, 2003 RR PART B [id number] ZACHRUDDYSHERYL PATIENT MEDICARE PART D (WNR) MEDICARE (M) PART D Jun 08, 2022 PART D [id number] SHERYL SERRANO PATIENT [employer] MEDICARE SECONDARY (NO B EXC) UPREH S Jun 08, 2009 [id number] SHERYL SERRANO PATIENT Selected Encounter This section includes the information on record at [place] for the Encounter. Date/Time Encounter Type Encounter Description Reason Pro vider Source Dec 31, 2023 01:21 PM Outpatient Encounter PRIMARY CARE/MEDICINE IHE Encounter Template Text not used by [place] Plan of Treatment: Future Appointments (+ 6 months) and Future Tests (+/- 45 days) The Plan of Treatment section includes future care activities for the patient from all [place] [facility]. This section includes future appointments and future orders which are active, pending or scheduled. Future Appointments This section includes appointments that were scheduled to occur 6 months from the date of the Encounter, up to a maximum of 20 appointments. The data comes from all [place] treatment facilities. Appointment Date/Time Appointment Type Appointme nt Facility Name Feb 14, 2024 07:00 AM AMBULATORY - NONE [facility] Apr 07, 2024 01:00 PM AMBULATORY - REHAB MEDICIN E [facility] Apr 28, 2024 02:30 PM AMBULATORY - REHAB MEDICIN E [facility] May 17, 2024 02:30 PM AMBULATORY - REHAB MEDICIN E [facility] Jun 23, 2024 02:30 PM AMBULATORY - REHAB MEDICIN [facility] Vital Signs: All taken on the encounter date This section contains inpatient and outpatient Vital Signs collected on the date of the Encounter. Date/Time Temperature Pulse Blood Pressure Respiratory Rate SP02 Pain Height Weight Body Mass Index Source Dec 31, 2023 01:26 PM 98.4 73 103/55 18 95 6 200.2 27 [facility] Social History: Smoking Status (Most current) and Tobacco Use (All prior to encounter date) This section includes the most current, and the historical, smoking and tobacco- related health factors from the [place] facility where the Encounter took place. Current Smoking Status This section includes the most current smoking, or tobacco-related health factor, from the [place] facility where the Encounter took place. Date/Time Current Smoking Status Comment Facil ity Dec 31, 2023 01:30 PM [place]-TOBACCO QUIT 15 YRS OR MORE [facility] Tobacco Use History This section includes a history of the smoking, or tobacco-related health factors, that were collected on or before the date of the Encounter. The data comes from the [place] facility where the Encounter took place. Date/Time Smoking Status/Tobacco Use Comment F acility Dec 31, 2023 01:30 PM VA-TOBACCO QUIT 15 YRS OR MORE [facility] Dec 18, 2022 01:00 PM VA-TOBACCO FORMER USER [facility] Dec 18, 2022 01:00 PM VA-TOBACCO QUIT 15 YRS OR MORE [facility] November 05, 2021 10:00 AM VA-TOBACCO FORMER USER [facility] November 05, 2021 10:00 AM VA-TOBACCO QUIT 15 YRS OR MORE [facility] Dec 10, 2018 12:57 PM VA-TOBACCO FORMER USER [facility] Dec 10, 2018 12:57 PM VA-TOBACCO QUIT 15 YRS OR MORE [facility] Feb 25, 2018 12:23 PM VA-TOBACCO FORMER USER [facility] Feb 25, 2018 12:23 PM VA-TOBACCO QUIT 15 YRS OR MORE [facility] Apr 10, 2015 02:55 PM FORMER TOBACCO USER 7Y OR GREATE R [facility] Apr 27, 2014 10:17 AM FORMER TOBACCO USER 7Y OR GREATE R [facility] Jun 18, 2006 07:23 AM FORMER TOBACCO USER 7Y OR GREATE R [facility] Advance Directives: All historical and current Section Date Range: From patient's date of to the date document was created. This section includes ALL of a patient's completed or amended [place] Advance and Rescinded Directives. The entries below indicate that a directive exists for the patient, but an actual copy is not included with this document. The data comes from all [place] facilities. Date Advance Directives Provider Source May 23, 2003 ADVANCE DIRECTIVE [facility] AND[facility] Encounter Notes: All associated encounter notes This section contains the clinical notes associated to the Encounter. Date/Time Encounter Note(s) Provider Source Dec 31, 2023 01:21 PM ADVANCE DIRECTIVE: LOCAL TITLE: AD NOTIFICATION AND SCREENING STANDARD TITLE: ADVANCE DIRECTIVE DATE OF NOTE: DEC 31, 2023@13:21 ENTRY DATE: DEC 31, 2023@13:21:44 AUTHOR: EJ ELIZONDO EXP COSIGNER: URGENCY: STATUS: COMPLETED ADVANCE DIRECTIVE NOTIFICATION: Patient was given written notification of the following rights: 1. Accept or refuse any medical treatment. 2. Complete a durable power of criminal defense attorney for health care. 3. Complete a living will. ADVANCE DIRECTIVE SCREENING: Does patient have an Advance Directive? The patient has an Advance Directive. Does the patient wish to make any changes or revoke their current Advance Directive? No changes requested at this time. /katey/ EJ ELIZONDO Tool Builder Signed: 12/31/2023 13:22 EJ ELIZONDO [facility]
--- OUTSIDE RECORDS SUMMARY | 2024-05-23 15:56 | XMS_ITS | Encounter Summary ---
Author Name [place] Address [address] [place] [address] Care Team Providers Care Repeat Chief Name Role Phone RODRÍGUEZ MATHEWS Primary Care [...] Blanchard's Name Patient's Relationship to Policy Blanchard [facility] (WNR) MEDICARE ADVANTAGE [facility] (WNR) Jun 08, 2023 [id number] SHERYL SERRANO PATIENT MEDICARE (WNR) MEDICARE (M) RR PART A Feb 06, 2003 RR PART A [id number] SHERYL SERRANO PATIENT MEDICARE (WNR) MEDICARE (M) RR PART B Feb 06, 2003 RR PART B [id number] SHERYL SERRANO PATIENT MEDICARE PART D (WNR) MEDICARE (M) PART D Jun 08, 2022 PART D [id number] SHERYL SERRANO PATIENT [employer] MEDICARE SECONDARY (NO B EXC) UPREH S Jun 08, 2009 [id number] SHERYL SERRANO PATIENT Selected Encounter This section includes the information on record at [place] for the Encounter. Date/Time Encounter Type Encounter Description Reason Provider Source Nov 17, 2023 01:30 PM CONFORMITY EVALUATION AUDIOLOGY ICD-10-CM H90.3 Sensorineural hearing loss, bilateral ANNA CRAWFORD IHMarika Encounter Template Text not used by [place] Assessments - Encounter Diagnoses This section includes the primary and secondary diagnoses documented for the Encounter. Date/Time Primary/Secondary Diagnosis Diagnosis Name Provider Source Nov 17, 2023 01:54 PM PRIMARY Sensorineural hearing loss, bilateral ANNA CRAWFORD [facility] Nov 17, 2023 01:54 PM SECONDARY Encounter for fitting and adjustment of hearing aid ANNA CRAWFORD [facility] Plan of Treatment: Future Appointments (+ 6 months) and Future Tests (+/- 45 days) The Plan of Treatment section includes future care activities for the patient from all [place] [facility]. This section includes future appointments and future orders which are active, pending or scheduled. Future Appointments This section includes appointments that were scheduled to occur 6 months from the date of the Encounter, up to a maximum of 20 appointments. The data comes from all [place] treatment facilities. Appointment Date/Time Appointment Type Appointme nt Facility Name Dec 31, 2023 01:30 PM AMBULATORY - MEDICINE [facility] Feb 14, 2024 07:00 AM AMBULATORY - NONE [facility] Apr 07, 2024 01:00 PM AMBULATORY - REHAB MEDICIN E [facility] Apr 28, 2024 02:30 PM AMBULATORY - REHAB MEDICIN E [facility] May 17, 2024 02:30 PM AMBULATORY - REHAB MEDICIN E [facility] Social History: Smoking Status (Most current) and Tobacco Use (All prior to encounter date) This section includes the most current, and the historical, smoking and tobacco- related health factors from the [place] facility where the Encounter took place. Current Smoking Status This section includes the most current smoking, or tobacco-related health factor, from the [place] facility where the Encounter took place. Date/Time Current Smoking Status Roxanna alcaraz Dec 18, 2022 01:00 PM VA-TOBACCO FORMER USER [facility] Tobacco Use History This section includes a history of the smoking, or tobacco-related health factors, that were collected on or before the date of the Encounter. The data comes from the [place] facility where the Encounter took place. Date/Time Smoking Status/Tobacco Use Comment F acility Dec 18, 2022 01:00 PM VA-TOBACCO QUIT 15 YRS OR MORE [facility] November 05, 2021 10:00 AM VA-TOBACCO FORMER USER [facility] November 05, 2021 10:00 AM VA-TOBACCO QUIT 15 YRS OR MORE [facility] Dec 10, 2018 12:57 PM VA-TOBACCO FORMER USER [facility] Dec 10, 2018 12:57 PM VA-TOBACCO QUIT 15 YRS OR MORE [facility] Feb 25, 2018 12:23 PM VA-TOBACCO FORMER USER [facility] Feb 25, 2018 12:23 PM VA-TOBACCO QUIT 15 YRS OR MORE [facility] Apr 10, 2015 02:55 PM FORMER TOBACCO USER 7Y OR GREATE R [facility] Apr 27, 2014 10:17 AM FORMER TOBACCO USER 7Y OR GREATE R [facility] Jun 18, 2006 07:23 AM FORMER TOBACCO USER 7Y OR GREATE R [facility] Advance Directives: All historical and current Section Date Range: From patient's date of to the date document was created. This section includes ALL of a patient's completed or amended [place] Advance and Rescinded Directives. The entries below indicate that a directive exists for the patient, but an actual copy is not included with this document. The data comes from all [facility]. Date Advance Directives Provider Source May 23, 2003 ADVANCE DIRECTIVE KINGS ANDREW [facility] Encounter Notes: All associated encounter notes This section contains the clinical notes associated to the Encounter. Date/Time Encounter Note(s) Provider Source Nov 17, 2023 07:19 AM AUDIOLOGY NOTE: LOCAL TITLE: AUDIOLOGY CLINIC NOTE STANDARD TITLE: AUDIOLOGY NOTE DATE OF NOTE: NOV 17, 2023@07:19 ENTRY DATE: NOV 17, 2023@07:19:26 AUTHOR: DAYANNA CRAWFORD COSIGNER: URGENCY: STATUS: COMPLETED DIAGNOSIS: Encounter for Fitting and Adjustment of Hearing Aid Sensorineural loss, bilateral REASON FOR VISIT: Therapeutic - hearing aid fitting, conformity evaluation (real-ear measures), orientation and counseling LOCATION OF VISIT (ROOM NUMBER): [id number] Douglas was seen for Hearing Aid [place] Appointment HISTORY: Douglas is an experienced hearing aid wearer. Recommended keep his old hearing aids as a backup/spare as needed. He has his old hearing aids. He was seen with his today. His helps with maintenance and inserting the hearing aids. HEARING AIDS (Right/Left) fit: 11/17/2023 Make: Phonak Model: Audeo L90-RL CHARLES Serial Numbers R/L: [id number] / [id number] Health Associate/Slim Tube Size: 2P Dome/Earmold: skeleton cShells ACCESSORIES: TV Connector Back-up Hearing Aids (right/left): 03/15/20 SONOVA PHONAK AUDEO M90-R CHARLES R [id number] 04/05/23 [address] [place] 03/15/20 SONOVA PHONAK AUDEO M90-R CHARLES L [id number] 04/05/23 [address] [place] skeleton molds TV Connector, PartnerMic OTOSCOPY: Both Ears: Free of excessive cerumen. Normal anatomy bilaterally ACTION: Hearing aid(s) are a good physical fit. Feedback test was completed and feedback route delivery manager was activated. Hearing aid(s) were programmed to prescriptive targets, which were derived from the Veterans hearing loss. CONFORMITY EVAUATION (VERIFICATION OF HEARING AID FUNCTION): Real Ear Aided Response (REAR) was measured using the [employer] 2 system using NAL-NL2 targets. Most targets were met. Loudness intolerance was measured using a 85 dB MPO tone sweep and the patient was able to tolerate the output of the hearing device(s). Veterans subjective impressions were considered while adjusting the hearing aid(s). reported good sound quality and equal balance between ears after adjustments were made. reported a comfortable fit. demonstrated understanding of the new aid(s) and his was able to insert the hearing aid (s) appropriately, as well as manipulate the volume control and charging unit. Indicator tones were demonstrated for . Volume control enabled- Synchronized Program button enabled Accessories were paired to the hearing aid(s). Douglas was educated and counseled on use and features of the device(s) as well as how to connect them. The device(s) were demonstrated in the office to ensure both device functionality and understanding. is not interested in connecting to a cell phone. Discussed that he could pair his old accessories with his new hearing aids as well. Douglas was counseled (30 minutes) regarding: -Full-time hearing aid use and acclimating to amplification -Realistic expectations for hearing aid use -Appropriate communication strategies -How to charge the hearing aids -Location and operation of all controls -Proper care and maintenance -Protecting hearing in high noise levels -Warning about battery ingestion -[facility] and Call Center contact information and services, including the trial period. Prognosis for success is good, given the Veterans response to the hearing aid(s). Hearing aid(s) were issued. His stated he does not need more supplies at this time. Douglas was provided with a copy of [place] issuance form 2477b. PLAN: will return to clinic for service as needed. Patient is in agreement with this plan. /katey/ DAYANNA CRAWFORD PSYCHOLOGIST COUNSELING Signed: 11/17/2023 13:59 DAYANNA CRAWFORD [facility]
--- OUTSIDE RECORDS SUMMARY | 2024-05-23 15:56 | XMS_ITS | Encounter Summary ---
Author Name [place] Address [address] [place] [address] Care Team Providers Care Nuclear Criticality Safety Engineer Name Role Phone URVASHI MATHEWS Primary Care [...] Blanchard's Name Patient's Relationship to Policy Blanchard [facility] (WNR) MEDICARE ADVANTAGE [facility] (WNR) Jun 08, 2023 [id number] SHERYL SERRANO PATIENT MEDICARE (WNR) MEDICARE (M) RR PART A Feb 06, 2003 RR PART A [id number] JANETTEVannesa SHERYL PATIENT MEDICARE (WNR) MEDICARE (M) RR PART B Feb 06, 2003 RR PART B [id number] ZACH SHERYL PATIENT MEDICARE PART D (WNR) MEDICARE (M) PART D Jun 08, 2022 PART D [id number] SHERYL SERRANO PATIENT [employer] MEDICARE SECONDARY (NO B EXC) UPREH S Jun 08, 2009 [id number] ZACH SHERYL PATIENT Selected Encounter This section [...] in unspecified finger(s) SILVERIO MATHEWS LY H [facility] Dec 31, 2023 08:38 PM SECONDARY Athscl heart disease of [place] coronary artery w/o ang pctrs BISISILVERIO [facility] Dec 31, 2023 08:38 PM SECONDARY Chronic obstructive pulmonary disease, unspecified BISISILVERIO [facility] Dec 31, 2023 08:38 PM SECONDARY Chronic rhinitis BIS[facility]ILVERIO [facility] Dec 31, 2023 08:38 PM SECONDARY End stage renal disease BISISILVERIO [facility] Dec 31, 2023 08:38 PM SECONDARY Essential (primary) hypertension BISISILVERIO [facility] Dec 31, 2023 08:38 PM SECONDARY Full incontinence of feces BIS[facility]ILVERIO [facility] Dec 31, 2023 08:38 PM SECONDARY Gastro-esophageal reflux disease without esophagitis BISISILVERIO LY H [facility] Dec 31, 2023 08:38 PM SECONDARY Hyperlipidemia, unspecified BISISILVERIO [facility] Dec 31, 2023 08:38 PM SECONDARY Hypothyroidism, unspecified BISISILVERIO LY H [facility] Dec 31, 2023 08:38 PM SECONDARY Secondary hyperparathyroidism of renal origin BISISILVERIO [facility] Dec 31, 2023 08:38 PM SECONDARY Type 2 diabetes mellitus w diabetic chronic kidney disease SILVERIO MATHEWS [facility] Dec 31, 2023 08:38 PM SECONDARY Type 2 diabetes mellitus with diabetic neuropathy, unsp BISISILVERIO [facility] Plan of Treatment: Future Appointments (+ [...] 07:00 AM AMBULATORY - NONE CHERYL MILLER [facility] Apr 07, 2024 01:00 PM AMBULATORY - REHAB MEDICIN E [facility] Apr 28, 2024 02:30 PM AMBULATORY - REHAB MEDICIN E [facility] May 17, 2024 02:30 PM AMBULATORY - REHAB MEDICIN E [facility] Jun 23, 2024 02:30 PM AMBULATORY - REHAB MEDICIN E [facility] Vital Signs: All taken on the encounter date This section contains inpatient and outpatient Vital Signs collected on the date of the Encounter. Date/Time Temperature Pulse Blood Pressure Respiratory Rate SP02 Pain Height Weight Body Mass Index Source Dec 31, 2023 01:26 PM 98.4 73 103/55 18 95 6 200.2 27 [facility] Social History: Smoking Status (Most current) [...] 31, 2023 01:30 PM VA-TOBACCO FORMER USER [facility] Tobacco Use History This section includes a history of the smoking, or tobacco-related health factors, that were collected on or before the date of the Encounter. The data comes from the [place] facility where the Encounter took place. Date/Time Smoking Status/Tobacco Use Comment F acility Dec 31, 2023 01:30 PM VA-TOBACCO QUIT 15 YRS OR MORE [facility] Dec 18, 2022 01:00 PM VA-TOBACCO FORMER USER [facility] Dec 18, 2022 01:00 PM VA-TOBACCO QUIT 15 YRS OR MORE [facility] November 05, 2021 10:00 AM VA-TOBACCO FORMER USER [facility] November 05, 2021 10:00 AM VA-TOBACCO QUIT 15 YRS OR MORE [facility] Dec 10, 2018 12:57 PM VA-TOBACCO FORMER USER [facility] Dec 10, 2018 12:57 PM VA-TOBACCO QUIT 15 YRS OR MORE [facility] Feb 25, 2018 12:23 PM VA-TOBACCO FORMER USER [facility] Feb 25, 2018 12:23 PM VA-TOBACCO QUIT 15 YRS OR MORE [facility] Apr 10, 2015 02:55 PM FORMER TOBACCO USER 7Y OR GREATE R [facility] Apr 27, 2014 10:17 AM FORMER TOBACCO USER 7Y OR GREATE R [facility] Jun 18, 2006 07:23 AM FORMER TOBACCO USER 7Y OR GREATE R [facility] Advance Directives: All [...] May 23, 2003 ADVANCE DIRECTIVE KINGS ANDREW [facility] Encounter Notes: All associated encounter notes This section contains the clinical notes associated to the Encounter. Date/Time Encounter Note(s) Provider Source Dec 31, 2023 01:27 PM INTERNAL MEDICINE OUTPATIENT NOTE: LOCAL TITLE: MEDICINE CLINIC NURSING NOTE STANDARD TITLE: INTERNAL MEDICINE OUTPATIENT NOTE DATE OF NOTE: DEC 31, 2023@13:27 ENTRY DATE: DEC 31, 2023@13:27:50 AUTHOR: GREG PORRAS COSIGNER: URGENCY: STATUS: COMPLETED TYPE OF VISIT: [...] medications and/or herbals. Suicide Screen: C-SSRS Screening [place]-Suicide Severity Rating Scale (C-SSRS Screener) 1. Over [...] Not worried about housing near future [facility] [place] reports the following: Within the past 12 months, you worried whether your food would run out before you got money to buy more. Never true Within the past 12 months, the food you bought just didn't last and you didn't have money to get more. Never true Food Assistance Programs [facility] Food Assistance [facility] Depression Screening: Perform PHQ-2 A PHQ-2 [...] ulcers, or a wound from a medical office asst or Patient is bed-confined or a wheelchair-user or Patient requires assistance to transfer/change position No, Skin Screen is Negative Home Abuse/Violence Screen Is your home free of abuse and violence? Yes Outpatient Nutrition Screen Body Mass Index (BMI)= 27.2 [place]: Collection DT Specimen Test Name Result Units Ref Range 03/15/2020 11:02 BLOOD HEMOGLOBIN A1C 6.0 % 4.0 - 6.0 [place] Hgb A1C: No data available [place] Hgb A1C: No data available Point of [...] PRACTICAL NURSE Signed: 12/31/2023 13:34 GREG PORRAS [facility] Dec 31, 2023 09:32 AM INTERNAL MEDICINE [...] incontinence, Co-managed care Co-managed care: PCP: [facility] [place]: [phone] Electro Mechanical Designer: Dr James Pérez [phone] [place] Hemodialysis [place], [place] at [facility] Urology: [facility] at [facility] , Dr. Prater Gets yearly at [facility] in [facility] [place] Clinic: Pacemaker checks [facility]: PROTOTYPE ENGINEER Yoana Jarquin, Dr. Boubacar Jesus Other: - Urology: DR. ISRA RIVAS [facility] [address] [place], [place] [id number] [place] [address] in [facility] for patient to get correction visits for bladder irrigation Today, we reviewed [...] Senile, Unsp 10. Coronary arteriosclerosis - s/p [id number] at [facility] in 07/15 11. Shared care - gis consultant and GP - PCP: Dr Dylan Xiong [facility]: [phone] - Electro Mechanical Designer: Dr James Pérez [phone] - [place], [place] 12. 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 Ganglion of wrist 14. Obstructive Sleep Apnea of Adult ([facility] [id number]) - APAP: 10-20, Ramp: 5x10 min, [place] 15. Hyperparathyroidism due to renal insufficiency 16. Chronic cough 17. Oropharyngeal dysphagia - 2013 [employer] eval in chart 18. Hemorrhoid 19. Exposure to potentially hazardous substance - Asbestos 20. Chronic obstructive lung disease 21. Gastroesophageal reflux disease without esophagitis 22. Chronic rhinitis 23. End-stage renal disease SURGICAL HISTORY: [id number] at [facility] in 07/2006 FAMILY HISTORY: Reviewed. SOCIAL HISTORY: Relationship/living situation: lives w/ [place] in [facility] health care in [facility] for patient to get correction visits for bladder irrigation Substance use hx: [...] FOR NASAL SYMPTOMS 4) BRIEF,TRANQUILITY HIPOLITO [facility] MED#[id number] USE BRIEF ACTIVE DIRECTED FOR INCONTINENCE 5) [...] TEST RESULTS: Received labs from 06/23/22 at [facility] labs: BMP 140/4.4 Bicarb 30 Cr 10.47 [...] were also reviewed/updated for accuracy. Allergies/ADR from [facility] may not display in CPRS. Use JLV MRT5 - Allergies/ADRs FACILITY ALLERGY/ADR -------- [facility] ATORVASTATIN [facility] METOCLOPRAMIDE [facility] OMEPRAZOLE [facility] ATORVASTATIN [facility] DOXYCYCLINE [facility] HYDROCODONE [facility] LISINOPRIL [facility] SIMVASTATIN Active and Recently Outpatient Medications (including [...] 83 days Sig: INJECT 18 Refills: 2 Last:07-07-24 UNITS UNDER THE SKIN EVERY DAY FOR [...] Medicine Primary Care Clinic PACT LAYNE Cameron /es/ Urvashi Mathews MD Physician Signed: 12/31/2023 20:38 URVASHI MATHEWS [facility]
--- OUTSIDE RECORDS SUMMARY | 2024-05-23 15:56 | XMS_ITS | Encounter Summary ---
Author Name [facility] [place] Organization [place] Address [address] [place] [address] Care Team Providers Care Beaver Trapper Name Role Phone URVASHI MATHEWS Primary Care [...] Blanchard's Name Patient's Relationship to Policy Blanchard [facility] (WNR) MEDICARE ADVANTAGE [facility] (WNR) Jun 08, 2023 [id number] SHERYL SERRANO PATIENT MEDICARE (WNR) MEDICARE (M) RR PART A Feb 06, 2003 RR PART A [id number] JANETTEVannesa SHERYL PATIENT MEDICARE (WNR) MEDICARE (M) RR PART B Feb 06, 2003 RR PART B [id number] SHERYL SERRANO PATIENT MEDICARE PART D (WNR) MEDICARE (M) PART D Jun 08, 2022 PART D [id number] SHERYL SERRANO PATIENT [employer] MEDICARE SECONDARY (NO B EXC) UPREH S Jun 08, 2009 [id number] SHERYL SERRANO PATIENT Selected Encounter This section includes the information on record at [place] for the Encounter. Date/Time Encounter Type Encounter Description Reason Pro vider Source October 24, 2023 09:44 PM Outpatient Encounter TELEPHONE TRIAGE IHE Encounter Template Text not used by [place] Plan of Treatment: Future Appointments (+ 6 months) and Future Tests (+/- 45 days) The Plan of Treatment section includes future care activities for the patient from all [place] [facility] This section includes future appointments and future orders which are active, pending or scheduled. Future Appointments This section includes appointments that were scheduled to occur 6 months from the date of the Encounter, up to a maximum of 20 appointments. The data comes from all [place] treatment facilities. Appointment Date/Time Appointment Type Appointme nt Facility Name Nov 17, 2023 01:30 PM AMBULATORY - SURGERY [facility] Dec 31, 2023 01:30 PM AMBULATORY - MEDICINE [facility] Feb 14, 2024 07:00 AM [facility] N[facility] Apr 07, 2024 01:00 PM AMBULATORY - REHAB MEDICIN E [facility] Social History: Smoking Status (Most current) and Tobacco Use (All prior to encounter date) This section includes the most current, and the historical, smoking and tobacco- related health factors from the [place] facility where the Encounter took place. Current Smoking Status This section includes the most current smoking, or tobacco-related health factor, from the [place] facility where the Encounter took place. Date/Time Current Smoking Status Comment Billie ity Dec 18, 2022 01:00 PM VA-TOBACCO FORMER USER [facility] Tobacco Use History This section includes a history of the smoking, or tobacco-related health factors, that were collected on or before the date of the Encounter. The data comes from the [place] facility where the Encounter took place. Date/Time [...] ALL of a patient's completed or amended [place] Advance and Rescinded Directives. The entries below indicate that a directive exists for the patient, but an actual copy is not included with this document. The data comes from all [place] facilities. Date Advance Directives Provider Source May 23, [address] [facility] Encounter Notes: All associated encounter notes [...] changes to the current prescription, unless his non-[place] clinician sends request otherwise to co-managed care. [...] units before each meal* INSULIN,ASPART(EQV-NOVLG)10 0UN/ML FLXPEN [id number] 05/13/2023 05/12/2022 05/06/2023 1 BISIURVASHI H 28.32 INJECT 5 UNITS UNDER THE [...] TWELVE This note was created by a [address] [facility] employee.Replies to this message are not monitored. Please do not reply back to the author of this message. If not renewing a medication, please have your clinic contact patient with reason. Thank you. /katey/ FOSTER JASSO SYSTEMS SECURITY ANALYST VISN 10 [employer] HVAC INSTRUCTOR Signed: 10/24/2023 21:46 Receipt Acknowledged By: 10/25/2023 [...] Receipt Acknowledged By: 10/26/2023 10:16 /es/ JAMISON HERNANDEZ RN REGISTERED NURSE 10/26/2023 ADDENDUM STATUS: COMPLETED Reception spoke with spouse, Jagruti who is listed [...] /katey/ Urvashi Mathews MD Physician URVASHI MATHEWS [facility] October 26, 2023 10:16 AM ADDENDUM: LOCAL TITLE: Addendum STANDARD TITLE: ADDENDUM DATE OF NOTE: OCTOBER 26, 2023@10:16:43 ENTRY DATE: OCTOBER 26, 2023@10:16:44 AUTHOR: JAMISON HERNANDEZ EXP COSIGNER: URGENCY: STATUS: COMPLETED Reception spoke with spouse, Jagruti who is listed [...] Marie Oglesby. Alerting PCP to above information. /daljit HERNANDEZ RN REGISTERED NURSE Signed: 10/26/2023 10:23 Receipt Acknowledged By: 10/26/2023 20:15 /es/ Urvashi Mathews MD Physician --- Original Document --- 10/24/23 PHARMACY CALL CENTER MEDICATION RENEWAL REQUEST: Medication renewal(s) requested by patient for: Non-controlled substance(s): SHERYL SERRANO is requesting a renewal of the following prescription (s): * uses 5 units before each meal* INSULIN,ASPART(EQV-NOVLG)10 0UN/ML FLXPEN [id number] 05/13/2023 05/12/2022 05/06/2023 1 URVASHI MATHEWS [...] TWELVE This note was created by a [facility] [employer] [facility] employee.Replies to this message are not monitored. Please do not reply back to the author of this message. If not renewing a medication, please have your clinic contact patient with reason. Thank you. /katey/ FOSTER JASSO CPHT VISN 10 PCC HVAC INSTRUCTOR Signed: 10/24/2023 21:46 Receipt Acknowledged By: 10/25/2023 [...] JAMISON HERNANDEZ RN REGISTERED NURSE JAMISON HERNANDEZ [facility] October 25, 2023 10:33 PM ADDENDUM: [...] a renewal of the following prescription (s): *[place] uses 5 units before each meal* INSULIN,ASPART(EQV-NOVLG)10 0UN/ML FLXPEN [id number] 05/13/2023 05/12/2022 05/06/2023 1 URVASHI MATHEWS [...] TWELVE This note was created by a [address] [facility] employee.Replies to this message are not monitored. Please do not reply back to the author of this message. If not renewing a medication, please have your clinic contact patient with reason. Thank you. /katey/ FOSTER JASSO SYSTEMS SECURITY ANALYST VISN 10 P[employer] HVAC INSTRUCTOR Signed: 10/24/2023 21:46 Receipt Acknowledged By: 10/25/2023 22:27 /katey/ Urvashi Mathews MD Physician 10/26/2023 ADDENDUM STATUS: UNSIGNED You may not VIEW this UNSIGNED Addendum. URVASHI MATHEWS [facility] October 24, 2023 09:44 PM PHARMACY [...] units before each meal* INSULIN,ASPART(EQV-NOVLG)10 0UN/ML FLXPEN [id number] 05/13/2023 05/12/2022 05/06/2023 1 BISIURVASHI H 28.32 INJECT 5 UNITS UNDER THE [...] TWELVE This note was created by a [address] [facility] employee.Replies to this message are not monitored. Please do not reply back to the author of this message. If not renewing a medication, please have your clinic contact patient with reason. Thank you. /katey/ FOSTER JASSO CPHT VISN 10 [employer] HVAC INSTRUCTOR Signed: 10/24/2023 21:46 Receipt Acknowledged By: 10/25/2023 [...] RN REGISTERED NURSE 10/26/2023 ADDENDUM STATUS: COMPLETED Reception spoke with spouse, Jagruti who is listed [...] reports veterans non-VA provider, Dr Dylan Xiong [facility], retired and is now seeing Dr. Anna [...] Acknowledged By: * AWAITING SIGNATURE * [facility]
--- OUTSIDE RECORDS SUMMARY | 2024-05-23 15:57 | XMS_ITS | Encounter Summary ---
Author Name [facility] [place] Organization [place] Address [address] [place] [address] Care Team Providers Care Satellite Communications Operator Name Role Phone URVASHI MATHEWS Primary Care [...] Blanchard's Name Patient's Relationship to Policy Blanchard [facility] (WNR) MEDICARE ADVANTAGE [facility] (WNR) Jun 08, 2023 [id number] SHERYL SERRANO PATIENT MEDICARE (WNR) MEDICARE (M) RR PART A Feb 06, 2003 RR PART A [id number] SHERYL SERRANO PATIENT MEDICARE (WNR) MEDICARE (M) RR PART B Feb 06, 2003 RR PART B [id number] SHERYL SERRANO PATIENT MEDICARE PART D (WNR) MEDICARE (M) PART D Jun 08, 2022 PART D [id number] SHERYL SERRANO PATIENT [employer] MEDICARE SECONDARY (NO B EXC) UPREH S Jun 08, 2009 [id number] SHERYL SERRANO PATIENT Selected Encounter This section includes the information on record at [place] for the Encounter. Date/Time Encounter Type Encounter Description Reason Provider Source Feb 15, 2024 01:40 PM Outpatient Encounter COMMUNITY CARE CONSULT [facility] Encounter Template Text not used by [place] Plan of Treatment: Future Appointments (+ 6 months) and Future Tests (+/- 45 days) The Plan of Treatment section includes future care activities for the patient [facility] [place] [facility] This section includes future appointments and future orders which are active, pending or scheduled. Future Appointments This section includes appointments that were scheduled to occur 6 months from the date of the Encounter, up to a maximum of 20 appointments. The data comes from all [facility] facilities. Appointment Date/Time Appointment Type Appointme nt Facility Name Apr 07, 2024 01:00 PM AMBULATORY - REHAB MEDICIN E [facility] Apr 28, 2024 02:30 PM AMBULATORY - REHAB MEDICIN [facility] May 17, 2024 02:30 PM AMBULATORY - REHAB MEDICIN [facility] Jun 23, 2024 02:30 PM AMBULATORY - REHAB MEDICIN E [facility] Social History: Smoking Status (Most current) and Tobacco Use (All prior to encounter date) This section includes the most current, and the historical, smoking and tobacco- related health factors from the [place] facility where the Encounter took place. Current Smoking Status This section includes the most current smoking, or tobacco-related health factor, from the [place] facility where the Encounter took place. Date/Time Current Smoking Status Comment Facil ity Dec 31, 2023 01:30 PM VA-TOBACCO FORMER USER [facility] Tobacco Use History This section includes a history of the smoking, or tobacco-related health factors, that were collected on or before the date of the Encounter. The data comes from the [place] facility where the Encounter took place. Date/Time Smoking Status/Tobacco Use Comment F acility Dec 31, 2023 01:30 PM VA-TOBACCO QUIT 15 YRS OR MORE [facility] Dec 18, 2022 01:00 PM VA-TOBACCO FORMER USER [facility] Dec 18, 2022 01:00 PM VA-TOBACCO QUIT 15 YRS OR MORE [facility] November 05, 2021 10:00 AM VA-TOBACCO FORMER USER [facility] November 05, 2021 10:00 AM VA-TOBACCO QUIT 15 YRS OR MORE [facility] Dec 10, 2018 12:57 PM VA-TOBACCO FORMER USER [facility] Dec 10, 2018 12:57 PM VA-TOBACCO QUIT 15 YRS OR MORE [facility] Feb 25, 2018 12:23 PM VA-TOBACCO FORMER USER [facility] Feb 25, 2018 12:23 PM VA-TOBACCO QUIT 15 YRS OR MORE [facility] Apr 10, 2015 02:55 PM FORMER TOBACCO USER 7Y OR GREATE R [facility] Apr 27, 2014 10:17 AM FORMER TOBACCO USER 7Y OR GREATE R [facility] Jun 18, 2006 07:23 AM FORMER TOBACCO USER 7Y OR GREATE R [facility] Advance Directives: All historical and current Section Date Range: From patient's date of to the date document was created. This section includes ALL of a patient's completed or amended [place] Advance and Rescinded Directives. The entries below indicate that a directive exists for the patient, but an actual copy is not included with this document. The data comes from all [facility]. Date Advance Directives Provider Source May 23, 2003 ADVANCE DIRECTIVE [facility] Encounter Notes: All associated encounter notes This section contains the clinical notes associated to the Encounter. Date/Time Encounter Note(s) Provider Source Feb 22, 2024 02:29 PM ADDENDUM: LOCAL TITLE: Addendum STANDARD TITLE: ADDENDUM DATE OF NOTE: FEB 22, 2024@14:29:13 ENTRY DATE: FEB 22, 2024@14:29:13 AUTHOR: TORI TIAN EXP COSIGNER: URGENCY: STATUS: COMPLETED [facility] called back stating best call time would be 02/24/24 between noon and 2pm /katey/ TORI TIAN Signed: 02/22/2024 14:31 Receipt Acknowledged By: 02/24/2024 13:47 /katey/ CAYDEN COPELAND RN RN Pact Protection Specialist for JAMISON DALYMYLES ====== --- Original Document --- 02/15/24 COMMUNITY CARE-CARE COORDINATION PLAN NOTE: In reference to Community Care Consult #[[id number]], dated [02/12/24], consult cancelled d/t: The requested service (Walkasins assessment) is not available in the home. /katey/ JEANNIE PINTO RN glass belt sander Plush Brusher Signed: 02/15/2024 13:42 Receipt Acknowledged By: 02/15/2024 13:44 /es/ Urvashi Mathews MD Physician 02/16/2024 10:20 /katey/ JAMISON HERNANDEZ, RN REGISTERED NURSE 02/16/2024 ADDENDUM STATUS: COMPLETED Primary Care Call Center Primary Care Provider Call. Please contact at the following number: [phone] Other: is requesting a referral to PT for a special assessment for use of a device called Walkascins, lower limbs sensory prosthesis. Please call to discuss. This note was created by a 3 [facility] Call Center NUBIA/YESENIA. Please do not alert this ad writer by adding as a signer for future communications. Alerts are not monitored by this user, please reach out to [facility] Leadership instead if indicated. /es/ JANAE IRWIN MSA,3 [facility] Signed: 02/11/2024 11:34 COMMUNITY CARE-CARE COORDINATION PLAN NOTE Has ADDENDA In reference to Community Care Consult #[[id number]], dated [02/12/24], consult cancelled d/t: The requested service (Walkasins assessment) is not available in the home. /katey/ JEANNIE PINTO RN glass belt sander Plush Brusher Signed: 02/15/2024 13:42 Coil Builder reaching out to PACT PT with suggestion of where can get the Walkasins assessment. Thank you /katey/ JAMISON HERNANDEZ, FRANCIA REGISTERED NURSE Signed: 02/16/2024 10:26 Receipt Acknowledged By: 02/16/2024 11:14 /katey/ LINDA FITZGERALD, PT CEEAA 4F PACT PT 02/16/2024 ADDENDUM STATUS: COMPLETED Patient will need to be seen and evaluated (usually three trials of walkasins) in outpatient rehab dept. /katey/ LINDA FITZGERALD, PT CEEAA 4F PACT PT Signed: 02/16/2024 11:15 Receipt Acknowledged By: 02/16/2024 14:03 /katey/ Urvashi Mathews MD Physician 02/16/2024 12:25 /katey/ JEANNIE PINTO RN glass belt sander Plush Brusher 02/16/2024 15:28 /katey/ JAMISON HERNANDEZ RN REGISTERED NURSE 02/16/2024 ADDENDUM STATUS: COMPLETED Patient will need to be seen and evaluated (usually three trials of walkasins) in outpatient rehab dept. /daljit FITZGERALD, PT CEEAA 4F PACT PT Signed: 02/16/2024 11:15 Coil Builder attempted to call and left a HIPPA compliant VM asking to reach out to the Call Center and let who he speaks with a good time for the nurse to call him back. /katey/ JAMISON HERNANDEZ RN REGISTERED NURSE Signed: 02/16/2024 15:29 02/24/2024 ADDENDUM STATUS: UNSIGNED You may not VIEW this UNSIGNED Addendum. TORI TIAN [facility] Feb 16, 2024 11:14 AM ADDENDUM: LOCAL TITLE: Addendum STANDARD TITLE: ADDENDUM DATE OF NOTE: FEB 16, 2024@11:14:25 ENTRY DATE: FEB 16, 2024@11:14:27 AUTHOR: KAMALJIT FITZGERALD EXP COSIGNER: URGENCY: STATUS: COMPLETED Patient will need to be seen and evaluated (usually three trials of walkasins) in outpatient rehab dept. /daljit FITZGERALD, PT CEEAA 4F PACT PT Signed: 02/16/2024 11:15 Receipt Acknowledged By: 02/16/2024 14:03 /katey/ Urvashi Mathews MD Physician 02/16/2024 12:25 /katey/ JEANNIE PINTO RN glass belt sander Plush Brusher 02/16/2024 15:28 /katey/ JAMISON K STUB, RN REGISTERED NURSE ====== --- Original Document --- 02/15/24 COMMUNITY CARE-CARE COORDINATION PLAN NOTE: In reference to Community Care Consult #[[id number]], dated [02/12/24], consult cancelled d/t: The requested service (Walkasins assessment) is not available in the home. /es/ JEANNIE PINTO RN glass belt sander Plush Brusher Signed: 02/15/2024 13:42 Receipt Acknowledged By: 02/15/2024 13:44 /es/ Urvashi Mathews MD Physician 02/16/2024 10:20 /es/ JAMISON HERNANDEZ RN REGISTERED NURSE 02/16/2024 ADDENDUM STATUS: COMPLETED Primary Care Call Center Primary Care Provider Call. Please contact at the following number: [phone] Other: is requesting a referral to PT for a special assessment for use of a device called Walkascins, lower limbs sensory prosthesis. Please call to discuss. This note was created by a [address] Call Center NUBIA/YESENIA. Please do not alert this ad writer by adding as a signer for future communications. Alerts are not monitored by this user, please reach out to [place] [facility] Leadership instead if indicated. /es/ JANAE IRWIN MSA,[address] Signed: 02/11/2024 11:34 COMMUNITY CARE-CARE COORDINATION PLAN NOTE Has ADDENDA In reference to Community Care Consult #[[id number]], dated [02/12/24], consult cancelled d/t: The requested service (Walkasins assessment) is not available in the home. /katey/ JEANNIE PINTO RN glass belt sander Plush Brusher Signed: 02/15/2024 13:42 Coil Builder reaching out to PACT PT with suggestion of where can get the Walkasins assessment. Thank you /katey/ JAMISON HERNANDEZ RN REGISTERED NURSE Signed: 02/16/2024 10:26 Receipt Acknowledged By: 02/16/2024 11:14 /katey/ BIA DOOLEY PACT PT KAMALJIT FITZGERALD [facility] Feb 16, 2024 10:23 AM ADDENDUM: LOCAL TITLE: Addendum STANDARD TITLE: ADDENDUM DATE OF NOTE: FEB 16, 2024@10:23:20 ENTRY DATE: FEB 16, 2024@10:23:21 AUTHOR: JAMISON HERNANDEZ EXP COSIGNER: URGENCY: STATUS: COMPLETED Primary Care Call Center Primary Care Provider Call. Please contact at the following number: [phone] Other: [facility] is requesting a referral to PT for a special assessment for use of a device called Walkascins, lower limbs sensory prosthesis. Please call to discuss. This note was created by a [address] [facility] Call Center NUBIA/YESENIA. Please do not alert this ad writer by adding as a signer for future communications. Alerts are not monitored by this user, please reach out to [place] [facility] instead if indicated. /katey/ JANAE IRWIN MSA,[facility] Signed: 02/11/2024 11:34 COMMUNITY CARE-CARE COORDINATION PLAN NOTE Has ADDENDA In reference to Community Care Consult #[[id number]], dated [02/12/24], consult cancelled d/t: The requested service (Walkasins assessment) is not available in the home. /katey/ JEANNIE PINTO RN glass belt sander Plush Brusher Signed: 02/15/2024 13:42 Coil Builder reaching out to PACT PT with suggestion of where can get the Walkasins assessment. Thank you /katey/ JAMISON HERNANDEZ RN REGISTERED NURSE Signed: 02/16/2024 10:26 Receipt Acknowledged By: 02/16/2024 11:14 /katey/ LINDA FITZGERALD PT CEEAA 4F PACT PT ====== --- Original Document --- 02/15/24 COMMUNITY CARE-CARE COORDINATION PLAN NOTE: In reference to Community Care Consult #[[id number]], dated [02/12/24], consult cancelled d/t: The requested service (Walkasins assessment) is not available in the home. /katey/ JEANNIE PINTO RN glass belt sander Plush Brusher Signed: 02/15/2024 13:42 Receipt Acknowledged By: 02/15/2024 13:44 /es/ Urvashi Mathews MD Physician 02/16/2024 10:20 /katey/ JAMISON HERNANDEZ RN REGISTERED NURSE 02/16/2024 ADDENDUM STATUS: UNSIGNED You may not VIEW this UNSIGNED Addendum. JAMISON HERNANDEZ [facility] Feb 15, 2024 01:40 PM NONVA NOTE: LOCAL TITLE: COMMUNITY CARE-CARE COORDINATION PLAN NOTE STANDARD TITLE: NONVA NOTE DATE OF NOTE: FEB 15, 2024@13:40 ENTRY DATE: FEB 15, 2024@13:40:28 AUTHOR: JEANNIE PINTO EXP COSIGNER: URGENCY: STATUS: COMPLETED COMMUNITY CARE-CARE COORDINATION PLAN NOTE Has ADDENDA In reference to Community Care Consult #[[id number]], dated [02/12/24], consult cancelled d/t: The requested service (Walkasins assessment) is not available in the home. /katey/ JEANNIE PINTO RN glass belt sander Plush Brusher Signed: 02/15/2024 13:42 Receipt Acknowledged By: 02/15/2024 13:44 /es/ Urvashi Mathews MD Physician 02/16/2024 10:20 /katey/ JAMISON HERNANDEZ RN REGISTERED NURSE 02/16/2024 ADDENDUM STATUS: COMPLETED Primary Care Call Center Primary Care Provider Call. Please contact at the following number: [phone] Other: [facility] is requesting a referral to PT for a special assessment for use of a device called Walkascins, lower limbs sensory prosthesis. Please call to discuss. This note was created by a 3 [facility] Call Center NUBIA/YESENIA. Please do not alert this ad writer by adding as a signer for future communications. Alerts are not monitored by this user, please reach out to [facility] Leadership instead if indicated. /katey/ JANAE IRWIN MSA,[address] Signed: 02/11/2024 11:34 COMMUNITY CARE-CARE COORDINATION PLAN NOTE Has ADDENDA In reference to Community Care Consult #[[id number]], dated [02/12/24], consult cancelled d/t: The requested service (Walkasins assessment) is not available in the home. /katey/ JEANNIE PINTO RN glass belt sander Plush Brusher Signed: 02/15/2024 13:42 Coil Builder reaching out to PACT PT with suggestion of where can get the Walkasins assessment. Thank you /katey/ JAMISON HERNANDEZ RN REGISTERED NURSE Signed: 02/16/2024 10:26 Receipt Acknowledged By: 02/16/2024 11:14 /katey/ BIA DOOLEY 4F PACT PT 02/16/2024 ADDENDUM STATUS: COMPLETED Patient will need to be seen and evaluated (usually three trials of walkasins) in 3R outpatient rehab dept. /katey/ BIA DOOLEY 4F PACT PT Signed: 02/16/2024 11:15 Receipt Acknowledged By: 02/16/2024 14:03 /es/ Urvashi Mathews MD Physician 02/16/2024 12:25 /es/ JEANNIE PINTO, RN glass belt sander Plush Brusher 02/16/2024 15:28 /es/ JAMISON HERNANDEZ, RN REGISTERED NURSE 02/16/2024 ADDENDUM STATUS: COMPLETED Patient will need to be seen and evaluated (usually three trials of walkasins) in outpatient rehab dept. /es/ LINDA FITZGERALD PT CEEAA 4F PACT PT Signed: 02/16/2024 11:15 Coil Builder attempted to call and left a HIPPA compliant VM asking to reach out to the Call Center and let who he speaks with a good time for the nurse to call him back. /es/ JAMISON HERNANDEZ, RN REGISTERED NURSE Signed: 02/16/2024 15:29 02/22/2024 ADDENDUM STATUS: COMPLETED [facility] called back stating best call time would be 02/24/24 between noon and 2pm /es/ TORI TIAN Signed: 02/22/2024 14:31 Receipt Acknowledged By: 02/24/2024 13:47 /es/ CAYDEN COPELAND, RN RN Pact Protection Specialist for JAMISON HERNANDEZ 02/24/2024 ADDENDUM STATUS: COMPLETED Responded via secure messaging. /katey/ CAYDEN COPELAND RN RN Pact Protection Specialist Signed: 02/24/2024 13:48 JEANNIE PINTO [facility]
--- OUTSIDE RECORDS SUMMARY | 2024-05-23 15:57 | XMS_ITS | Encounter Summary ---
Author Name [place] Address [address] [place] [address] Care Team Providers Care Commercial Energy Auditor Name Role Phone RODRÍGUEZ MATHEWS Primary Care [...] Blanchard's Name Patient's Relationship to Policy Blanchard [facility] (WNR) MEDICARE ADVANTAGE [facility] (WNR) Jun 08, 2023 [id number] SHERYL MACKAY PATIENT MEDICARE (WNR) MEDICARE (M) RR PART A Feb 06, 2003 RR PART A [id number] SHERYL MACKAY PATIENT MEDICARE (WNR) MEDICARE (M) RR PART B Feb 06, 2003 RR PART B [id number] SHERYL MACKAY PATIENT MEDICARE PART D (WNR) MEDICARE (M) PART D Jun 08, 2022 PART D [id number] SHERYL MACKAY PATIENT [employer] MEDICARE SECONDARY (NO B EXC) UPREH S Jun 08, 2009 [id number] SHERYL MACKAY PATIENT Selected Encounter This section includes the information on record at [place] for the Encounter. Date/Time Encounter Type Encounter Description Reason Provider Source Jan 21, 2024 10:49 AM Outpatient Encounter COMMUNITY CARE CONSULT [facility] Encounter Template Text not used by [place] Plan of Treatment: Future Appointments (+ 6 months) and Future Tests (+/- 45 days) The Plan of Treatment section includes future care activities for the patient from all [place] [facility] This section includes future appointments and future orders which are active, pending or scheduled. Future Appointments This section includes appointments that were scheduled to occur 6 months from the date of the Encounter, up to a maximum of 20 appointments. The data comes from all [place] treatment facilities. Appointment Date/Time Appointment Type Appointme nt Facility Name Feb 14, 2024 07:00 AM [facility] Apr 07, 2024 01:00 PM AMBULATORY - REHAB MEDICIN E [facility] Apr 28, 2024 02:30 PM AMBULATORY - REHAB MEDICIN E [facility] May 17, 2024 02:30 PM AMBULATORY - REHAB MEDICIN E [facility] Jun 23, 2024 02:30 PM AMBULATORY - REHAB MEDICIN E [facility] Social History: Smoking Status (Most current) and Tobacco Use (All prior to encounter date) This section includes the most current, and the historical, smoking and tobacco- related health factors from the [place] facility where the Encounter took place. Current Smoking Status This section includes the most current smoking, or tobacco-related health factor, from the [place] facility where the Encounter took place. Date/Time Current Smoking Status Comment Billie ity Dec 31, 2023 01:30 PM VA-TOBACCO QUIT 15 YRS OR MORE [facility] Tobacco Use History This section includes a history of the smoking, or tobacco-related health factors, that were collected on or before the date of the Encounter. The data comes from the [place] facility where the Encounter took place. Date/Time Smoking Status/Tobacco Use Comment F acility Dec 31, 2023 01:30 PM VA-TOBACCO QUIT 15 YRS OR MORE [facility] Dec 18, 2022 01:00 PM VA-TOBACCO FORMER USER [facility] Dec 18, 2022 01:00 PM VA-TOBACCO QUIT 15 YRS OR MORE [facility] November 05, 2021 10:00 AM VA-TOBACCO FORMER USER [facility] November 05, 2021 10:00 AM VA-TOBACCO QUIT 15 YRS OR MORE [facility] Dec 10, 2018 12:57 PM VA-TOBACCO FORMER USER [facility] Dec 10, 2018 12:57 PM VA-TOBACCO QUIT 15 YRS OR MORE [facility] Feb 25, 2018 12:23 PM VA-TOBACCO FORMER USER [facility] Feb 25, 2018 12:23 PM VA-TOBACCO QUIT 15 YRS OR MORE [facility] Apr 10, 2015 02:55 PM FORMER TOBACCO USER 7Y OR GREATE R [facility] Apr 27, 2014 10:17 AM FORMER TOBACCO USER 7Y OR GREATE R [facility] Jun 18, 2006 07:23 AM FORMER TOBACCO USER 7Y OR GREATE R [facility] Advance Directives: All historical and [...] 2003 ADVANCE DIRECTIVE [facility] Encounter Notes: All associated encounter notes This section contains the clinical notes associated to the Encounter. Date/Time Encounter Note(s) Provider Source Jan 21, 2024 10:49 AM GERIATRIC MEDICINE NOTE: LOCAL TITLE: PERSONAL CARE SERVICES CASE MIX TOOL STANDARD TITLE: GERIATRIC MEDICINE NOTE DATE OF NOTE: JAN 21, 2024@10:49:24 ENTRY DATE: JAN 21, 2024@10:49:24 AUTHOR: DANITZA PINTO EXP COSIGNER: URGENCY: STATUS: COMPLETED PERSONAL CARE SERVICES CASE MIX TOOL Has ADDENDA HCBS Case Mix & Budget Tool (CASE MIX) Date Given: 01/21/2024 Clinician: Danitza Pinto Location: [facility] [place]: Sheryl Mackay SSN: [id number] : [birth year] ([birth year]) Gender: Male Type of Evaluation: Annual Anticipated Start Date: 02/14/2024 Anticipated Length of Service: 12 months Case Mix Level: H ADL Category: High Questions and Answers: Q1. DRESSING *2 Need some help from another person to put your clothes on. Q2. GROOMING *2 Needs and get daily help from another person. Q3. BATHING *5 Cannot bathe or shower, need complete help. Q4. EATING *2 Need and get help in cutting food, buttering bread or arranging food. Q5. BED MOBILITY 1 Need and get help sometimes to sit up. Q6. TRANSFERRING *2 Need one other person to help you. Q7. WALKING *2 Need and get help from one person to help you walk. Q8. BEHAVIOR *2 Regular staff intervention / disorientation, hallucinates, wanders / resistive but responds. Q9. COMMUNICATION 1 Usually Understood. Q10. TOILETING *6 Wet your pants and have bowel movements in your clothes very often. Q11. MDS HC 2.0/CPS Cognitive Skill for Daily Decision Making 1 Modified [place] - some difficulty in new situations only. Q12. MDS 2.0/CPS: Short Term Memory (recall of what was learned or known) 0 Short-term memory okay- seems/appears to recall after 5 minutes Q13. SPECIAL TREATMENTS 0 No TX Q14. CLINICAL MONITORING 0 Less than once a day Q15. SPECIAL NURSING No Q16. NEUROMUSCULAR DIAGNOSIS No COMMENTS Pt. with diagnosis and ADL dependencies contributing to the need for in-home care. SOURCES 2. Informant, 3. Medical Record /katey/ DANITZA PINTO RN claim processing specialist Dietitian Teaching Signed: 01/21/2024 10:50 01/21/2024 ADDENDUM STATUS: COMPLETED Main contact for : Name: [Jagruti] Relationship to : [] Phone: [ ] /caregiver educated on Personal Care Services (PCS) available: Yes PCS requested by /caregiver: [X] Home Health Aide (ENERGY ASSISTANT) Are first range hours adequate for this ?: [X] Yes. [] No. Second range hours request submitted to [facility] per policy Distribution of hours (can copy/paste from [facility] referral/s): Home Health Aide approved: (hours and frequency): [16] hours/week Pt./family/agency requesting more PCS hours than Case Mix determination. Per chart review and policy, pt. approved for one level above Case Mix determination. Vendor [[employer] has been educated on requested services and hours allotted. /katey/ DANITZA M PINTO, RN claim processing specialist Dietitian Teaching Signed: 01/21/2024 10:53 DANITZA PINTO [facility]
--- OUTSIDE RECORDS SUMMARY | 2024-05-23 15:58 | XMS_ITS | Encounter Summary ---
Author Name [facility] [place] Address [address] [place] [address] Care Team Providers Care Histology Supervisor Name Role Phone URVASHI MATHEWS Primary Care [...] Blanchard's Name Patient's Relationship to Policy Blanchard [facility] (WNR) MEDICARE ADVANTAGE [facility] (WNR) Jun 08, 2023 [id number] SHERYL SERRANO PATIENT MEDICARE (WNR) MEDICARE (M) RR PART A Feb 06, 2003 RR PART A [id number] JANETTERUDDY GranadoARD PATIENT MEDICARE (WNR) MEDICARE (M) RR PART B Feb 06, 2003 RR PART B [id number] ZACH SHERYL PATIENT MEDICARE PART D (WNR) MEDICARE (M) PART D Jun 08, 2022 PART D [id number] SHERYL SERRANO PATIENT [employer] MEDICARE SECONDARY (NO B EXC) UPREH S Jun 08, 2009 [id number] SHERYL SERRANO PATIENT Selected Encounter This section includes the information on record at [place] for the Encounter. Date/Time Encounter Type Encounter Description Reason Provider Source Apr 28, 2024 02:30 PM SELF CARE MNGMENT TRAINING PHYSICAL THERAPY ICD-10-CM R26.89 Other abnormalities of gait and mobility PROSPER HAYES Tamra Alfonso IHMarika Encounter Template Text not used by [place] Assessments - Encounter Diagnoses This section includes the primary and secondary diagnoses documented for the Encounter. Date/Time Primary/Secondary Diagnosis Diagnosis Name Provider Source Apr 28, 2024 03:35 PM PRIMARY Other abnormalities of gait and mobility ALPHONSESYLPROSPER [facility] Plan of Treatment: Future Appointments (+ 6 months) and Future Tests (+/- 45 days) The Plan of Treatment section includes future care activities for the patient from all [place] [facility] This section [...] 02:30 PM AMBULATORY - REHAB MEDICIN E [facility] Jun 23, 2024 02:30 PM AMBULATORY - REHAB MEDICIN E [facility] Social History: Smoking Status (Most current) [...] 31, 2023 01:30 PM VA-TOBACCO FORMER USER [facility] Tobacco Use History This section includes a history of the smoking, or tobacco-related health factors, that were collected on or before the date of the Encounter. The data comes from the [place] facility where the Encounter took place. Date/Time Smoking Status/Tobacco Use Comment F acility Dec 31, 2023 01:30 PM VA-TOBACCO QUIT 15 YRS OR MORE [facility] Dec 18, 2022 01:00 PM VA-TOBACCO FORMER USER [facility] Dec 18, 2022 01:00 PM VA-TOBACCO QUIT 15 YRS OR MORE [facility] November 05, 2021 10:00 AM VA-TOBACCO FORMER USER [facility] November 05, 2021 10:00 AM VA-TOBACCO QUIT 15 YRS OR MORE [facility] Dec 10, 2018 12:57 PM VA-TOBACCO FORMER USER [facility] Dec 10, 2018 12:57 PM VA-TOBACCO QUIT 15 YRS OR MORE [facility] Feb 25, 2018 12:23 PM VA-TOBACCO FORMER USER [facility] Feb 25, 2018 12:23 PM VA-TOBACCO QUIT 15 YRS OR MORE [facility] Apr 10, 2015 02:55 PM FORMER TOBACCO USER 7Y OR GREATE R [facility] Apr 27, 2014 10:17 AM FORMER TOBACCO USER 7Y OR GREATE R [facility] Jun 18, 2006 07:23 AM FORMER TOBACCO USER 7Y OR GREATE R [facility] Advance Directives: All historical and current [...] 23, 2003 ADVANCE DIRECTIVE [facility] Encounter Notes: All associated encounter notes This section contains the clinical notes associated to the Encounter. Date/Time Encounter Note(s) Provider Source Apr 29, 2024 07:49 AM ADDENDUM: LOCAL TITLE: Addendum STANDARD TITLE: ADDENDUM DATE OF NOTE: APR 29, 2024@07:49:53 ENTRY DATE: APR 29, 2024@07:49:54 AUTHOR: SUZETTE HAYES EXP COSIGNER: URGENCY: STATUS: COMPLETED Pt followed by [...] awareness and further follow-up if deemed necessary. 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 Pt is [employer], so his supplements subjective information. Returns today [...] Walkasins OBJECTIVE: OBSERVATION: Presents seated in power [employer] VITALS: Resting, R arm (NO BP in left arm - fistula for dialysis in L UE) Initial BP: 111/58 mmHg After standing weight shift: 92/50 Resting 5 min: 109/59 Standing marching (36s): 84/46 Seated march: 128/58 Heart Rate: 73 bpm O2 Sats: 98% GAIT: Not observed today; pt required CGA for sit to stand and with transfer to [facility] today. 5x STS: attempted, but pt required min A of sign writer letterer or painter with stand. 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 Pt is [employer], so his supplements subjective information. Returns today [...] sit to stand and with transfer to [facility] today. 5x STS: attempted, but pt required min A of sign writer letterer or painter with stand. SENSATION: Pt unable to feel [...] AWAITING SIGNATURE * URVASHI MATHEWS BRITTANY C [facility]
--- OUTSIDE RECORDS SUMMARY | 2024-05-23 15:58 | XMS_ITS | Encounter Summary ---
Author Name [place] Address [address] [place] [address] Care Team Providers Care Snow Removing Supervisor Name Role Phone RODRÍGUEZ MATHEWS Primary Care [...] Blanchard's Name Patient's Relationship to Policy Blanchard [facility] (WNR) MEDICARE ADVANTAGE [facility] (WNR) Jun 08, 2023 [id number] SHERYL SERRANO PATIENT MEDICARE (WNR) MEDICARE (M) RR PART A Feb 06, 2003 RR PART A [id number] JANETTERUDDY GranadoARD PATIENT MEDICARE (WNR) MEDICARE (M) RR PART B Feb 06, 2003 RR PART B [id number] ZACH SHERYL PATIENT MEDICARE PART D (WNR) MEDICARE (M) PART D Jun 08, 2022 PART D [id number] SHERYL SERRANO PATIENT [employer] MEDICARE SECONDARY (NO B EXC) UPREH S Jun 08, 2009 [id number] SHERYL SERRANO PATIENT Selected Encounter This section includes the information on record at [place] for the Encounter. Date/Time Encounter Type Encounter Description Reason Provider Source Apr 07, 2024 01:00 PM SELF CARE MNGMENT TRAINING PHYSICAL THERAPY ICD-10-CM R26.89 Other abnormalities of gait and mobility PROSPER HAYES [facility] Encounter Template Text not used by [place] Assessments - Encounter Diagnoses This section includes the primary and secondary diagnoses documented for the Encounter. Date/Time Primary/Secondary Diagnosis Diagnosis Name Provider Source Apr 07, 2024 01:47 PM PRIMARY Other abnormalities of gait and mobility PROSPER HAYES Tamra Alfonso [facility] Plan of Treatment: Future Appointments (+ 6 months) and Future Tests (+/- 45 days) The Plan of Treatment section includes future care activities for the patient from all [place] [facility] This section includes future appointments [...] 02:30 PM AMBULATORY - REHAB MEDICIN E [facility] May 17, 2024 02:30 PM AMBULATORY - RE[facility]AB MED[facility]IN [facility] Jun 23, 2024 02:30 PM AMBULATORY - REHAB MEDICIN E [facility] Social History: Smoking Status (Most current) and [...] 31, 2023 01:30 PM VA-TOBACCO FORMER USER [facility] Tobacco Use History This section includes a history of the smoking, or tobacco-related health factors, that were collected on or before the date of the Encounter. The data comes from the [place] facility where the Encounter took place. Date/Time Smoking Status/Tobacco Use Comment F acility Dec 31, 2023 01:30 PM VA-TOBACCO QUIT 15 YRS OR MORE [facility] Dec 18, 2022 01:00 PM VA-TOBACCO FORMER USER [facility] Dec 18, 2022 01:00 PM VA-TOBACCO QUIT 15 YRS OR MORE [facility] November 05, 2021 10:00 AM VA-TOBACCO FORMER USER [facility] November 05, 2021 10:00 AM VA-TOBACCO QUIT 15 YRS OR MORE [facility] Dec 10, 2018 12:57 PM VA-TOBACCO FORMER USER [facility] Dec 10, 2018 12:57 PM VA-TOBACCO QUIT 15 YRS OR MORE [facility] Feb 25, 2018 12:23 PM VA-TOBACCO FORMER USER [facility] Feb 25, 2018 12:23 PM VA-TOBACCO QUIT 15 YRS OR MORE [facility] Apr 10, 2015 02:55 PM FORMER TOBACCO USER 7Y OR GREATE R [facility] Apr 27, 2014 10:17 AM FORMER TOBACCO USER 7Y OR GREATE R [facility] Jun 18, 2006 07:23 AM FORMER TOBACCO USER 7Y OR GREATE R [facility] Advance Directives: All historical and current Section [...] DATE: APR 07, 2024@07:39:29 AUTHOR: SUZETTE HAYES EXP COSIGNER: URGENCY: STATUS: COMPLETED PT-EVALUATION NOTE Has [...] of large intestine, Coronary arteriosclerosis - s/p [id number] at [facility] in 07/15, 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 Pt is [place], so his supplements subjective information. Pt reports [...] Retired. Sedentary. Having some weakness since silent CO and is undergoing further medical work-up to address. Red Flags: No personal history of cancer. Denies any UE or LE progressive weakness (yes - since silent CO), unexplained weight loss, loss of bowel/bladder control, [...] Are you able to bend down and forklift picker clothing from the floor? Unable to [...] PHYSICAL THERAPIST Signed: 04/08/2024 08:48 SUZETTE HAYES [facility]
--- OUTSIDE RECORDS SUMMARY | 2024-05-23 15:58 | XMS_ITS | Encounter Summary ---
Author Name Department [place] Organization [place] Address [address] [place] [address] Care Team Providers Care Media Professional Name Role Phone BISIRODRÍGUEZ Primary Care Provider [...] Blanchard's Name Patient's Relationship to Policy Blanchard [facility] (WNR) MEDICARE ADVANTAGE [facility] (WNR) Jun 08, 2023 [id number] JANETTERUDDY GranadoARD PATIENT MEDICARE (WNR) MEDICARE (M) RR PART A Feb 06, 2003 RR PART A [id number] MIKMOLLYRUDDY GranadoARD PATIENT MEDICARE (WNR) MEDICARE (M) RR PART B Feb 06, 2003 RR PART B [id number] ZACHRUDDYSHERYL PATIENT MEDICARE PART D (WNR) MEDICARE (M) PART D Jun 08, 2022 PART D [id number] SHERYL SERRANO PATIENT [employer] MEDICARE SECONDARY (NO B EXC) UPREH S Jun 08, 2009 [id number] SHERYL SERRANO PATIENT Selected Encounter This section includes the information on record at [place] for the Encounter. Date/Time Encounter Type Encounter Description Reason Provider Source Feb 24, 2024 02:46 PM Outpatient Encounter PRIMARY CARE/MEDICINE CAYDEN COPELAND Marika Encounter Template Text not used by [place] Plan of Treatment: Future Appointments (+ 6 months) and Future Tests (+/- 45 days) The Plan of Treatment section includes future care activities for the patient from all [place] [facility]. This section includes future appointments and future orders which are active, pending or scheduled. Future Appointments This section includes appointments that were scheduled to occur 6 months from the date of the Encounter, up to a maximum of 20 appointments. The data comes from all [facility] facilities. Appointment Date/Time Appointment Type Appointme nt Facility Name Apr 07, 2024 01:00 PM AMBULATORY - REHAB MEDICIN E [facility] Apr 28, 2024 02:30 PM AMBULATORY - REHAB MEDICIN E [facility] May 17, 2024 02:30 PM AMBULATORY - REHAB MEDICIN [facility] Jun 23, 2024 02:30 PM AMBULATORY - REHAB MEDICIN E [facility] Social History: Smoking Status (Most current) and Tobacco Use (All prior to encounter date) This section includes the most current, and the historical, smoking and tobacco- related health factors from the [place] facility where the Encounter took place. Current Smoking Status This section includes the most current smoking, or tobacco-related health factor, from the [place] facility where the Encounter took place. Date/Time Current Smoking Status Comment Facil ity Dec 31, 2023 01:30 PM VA-TOBACCO QUIT 15 YRS OR MORE [facility] Tobacco Use History This section includes a history of the smoking, or tobacco-related health factors, that were collected on or before the date of the Encounter. The data comes from the [place] facility where the Encounter took place. Date/Time Smoking Status/Tobacco Use Comment F acility Dec 31, 2023 01:30 PM VA-TOBACCO QUIT 15 YRS OR MORE [facility] Dec 18, 2022 01:00 PM VA-TOBACCO FORMER USER [facility] Dec 18, 2022 01:00 PM VA-TOBACCO QUIT 15 YRS OR MORE [facility] November 05, 2021 10:00 AM VA-TOBACCO FORMER USER [facility] November 05, 2021 10:00 AM [place]-TOBACCO QUIT 15 YRS OR MORE [facility] Dec 10, 2018 12:57 PM VA-TOBACCO FORMER USER [facility] Dec 10, 2018 12:57 PM VA-TOBACCO QUIT 15 YRS OR MORE [facility] Feb 25, 2018 12:23 PM VA-TOBACCO FORMER USER [facility] Feb 25, 2018 12:23 PM VA-TOBACCO QUIT 15 YRS OR MORE [facility] Apr 10, 2015 02:55 PM FORMER TOBACCO USER 7Y OR GREATE R [facility] Apr 27, 2014 10:17 AM FORMER TOBACCO USER 7Y OR GREATE R [facility] Jun 18, 2006 07:23 AM FORMER TOBACCO USER 7Y OR GREATE R [facility] Advance Directives: All historical [...] May 23, 2003 ADVANCE DIRECTIVE [facility]INGS ANDREW [facility] Encounter Notes: All associated encounter notes This section contains the clinical notes associated to the Encounter. Date/Time Encounter Note(s) Provider Source Feb 24, 2024 02:46 PM PRIMARY CARE SECUR E MESSAGING: LOCAL TITLE: PRIMARY CARE SECURE MESSAGING STANDARD TITLE: PRIMARY CARE SECURE MESSAGING DATE OF NOTE: FEB 24, 2024@14:46 ENTRY DATE: FEB 24, 2024@13:46:52 AUTHOR: CAYDEN COPELAND EXP COSIGNER: URGENCY: STATUS: COMPLETED ------Original Message ----- Sent: 02/24/2024 02:46 PM ET From: CAYDEN COPELAND To: SHERYL SERRANO Subject: General:A message from your Pact Team Per your request for Walkasins, you will need to be seen and evaluated (usually 3 trials of Walkasins) in 3R outpt rehad. This is self-referral. You may call to schedule appointment in PT, 3R outpt rehab at [phone]. Thank you. Jennifer FELDMAN, Internal Review And Audit Compliance /katey/ CAYDEN COPELAND RN RN Pact Internal Review And Audit Compliance Signed: 02/24/2024 13:46 CAYDEN COPELAND [facility]
--- OUTSIDE RECORDS SUMMARY | 2024-05-23 15:58 | XMS_ITS | Encounter Summary ---
Author Name [facility] Organization [facility] Address [address] [place] [address] Care Team Providers Care Milled Rubber Tender Name Role Phone RODRÍGUEZ MATHEWS Primary Care [...] Blanchard [facility] (WNR) MEDICARE ADVANTAGE [facility] (WNR) Jun 08, 2023 [id number] SHERYL SERRANO PATIENT MEDICARE (WNR) MEDICARE (M) RR PART A Feb 06, 2003 RR PART A [id number] [phone] JANETTERUDDY GranadoARD PATIENT MEDICARE (WNR) MEDICARE (M) RR PART B Feb 06, 2003 RR PART B [id number] ZACH SHERYL PATIENT MEDICARE PART D (WNR) MEDICARE (M) PART D Jun 08, 2022 PART D [id number] SHERYL SERRANO PATIENT [facility] MEDICARE SECONDARY (NO B EXC) UPREH S Jun 08, 2009 [id number] SHERYL SERRANO PATIENT Selected Encounter This section includes the information on record at [place] for the Encounter. Date/Time Encounter Type Encounter Description Reason Provider Source May 17, 2024 02:30 PM SELF CARE MNGMENT TRAINING PHYSICAL THERAPY ICD-10-CM R26.89 Other abnormalities of gait and mobility FREDDYRASHELRICH Alfonso IHMarika Encounter Template Text not used by [place] Assessments - Encounter Diagnoses This section includes the primary and secondary diagnoses documented for the Encounter. Date/Time Primary/Secondary Diagnosis Diagnosis Name Provider Source May 17, 2024 03:35 PM PRIMARY Other abnormalities of gait and mobility PROSPER HAYES [facility] Plan of Treatment: Future Appointments (+ 6 months) and Future Tests (+/- 45 days) The Plan of Treatment section includes future care activities for the patient [facility]. This section includes future appointments and future orders which are active, pending or scheduled. Future Appointments This section includes appointments that were scheduled to occur 6 months from the date of the Encounter, up to a maximum of 20 appointments. The data comes from all [place] treatment facilities. Appointment Date/Time Appointment Type Appointme nt Facility Name Jun 23, 2024 02:30 PM AMBULATORY - REHAB MEDICIN E [facility] Social History: Smoking Status (Most current) and Tobacco Use (All prior to encounter date) This section includes the most current, and the historical, smoking and tobacco- related health factors from the [place] facility where the Encounter took place. Current Smoking Status This section includes the most current smoking, or tobacco-related health factor, from the [place] facility where the Encounter took place. Date/Time Current Smoking Status Comment Billie ity Dec 31, 2023 01:30 PM VA-TOBACCO FORMER USER [facility] Tobacco Use History This section includes a history of the smoking, or tobacco-related health factors, that were collected on or before the date of the Encounter. The data comes from the [place] facility where the Encounter took place. Date/Time Smoking Status/Tobacco Use Comment F acility Dec 31, 2023 01:30 PM VA-TOBACCO QUIT 15 YRS OR MORE [facility] Dec 18, 2022 01:00 PM VA-TOBACCO FORMER USER [facility] Dec 18, 2022 01:00 PM VA-TOBACCO QUIT 15 YRS OR MORE [facility] November 05, 2021 10:00 AM VA-TOBACCO FORMER USER [facility] November 05, 2021 10:00 AM VA-TOBACCO QUIT 15 YRS OR MORE [facility] Dec 10, 2018 12:57 PM VA-TOBACCO FORMER USER [facility] Dec 10, 2018 12:57 PM VA-TOBACCO QUIT 15 YRS OR MORE [facility] Feb 25, 2018 12:23 PM VA-TOBACCO FORMER USER [facility] Feb 25, 2018 12:23 PM VA-TOBACCO QUIT 15 YRS OR MORE [facility] Apr 10, 2015 02:55 PM FORMER TOBACCO USER 7Y OR GREATE R [facility] Apr 27, 2014 10:17 AM FORMER TOBACCO USER 7Y OR GREATE R [facility] Jun 18, 2006 07:23 AM FORMER TOBACCO USER 7Y OR GREATE R [facility] Advance Directives: All historical and current Section Date Range: From patient's date of to the date document was created. This section includes ALL of a patient's completed or amended [place] Advance and Rescinded Directives. The entries below indicate that a directive exists for the patient, but an actual copy is not included with this document. The data comes from all [place] facilities. 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 Returns today [...] PHYSICAL THERAPIST Signed: 05/18/2024 14:33 SUZETTE HAYES [facility]
--- OUTSIDE RECORDS SUMMARY | 2024-05-23 15:59 | XMS_ITS ---
Author Name [facility] Address [address] [place] [id number] Phone [phone] Organization [facility] e, NA DOCUMENT DISCLAIMER Multiple document versions may exist, please be sure you review the latest version. The information in the [facility] Continuity of Care Document represents a summary of certain health and medical information. It may not contain the complete medical history for the patient and should be independently verified. The represented time in the document is Eastern Time. 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 [...] Characteristics of Home environment No Information Available Gender and Sex Information Gender Identity Sexual Orientation No Information Available No Information Available MEDICATIONS Prescribed Medications for Dialysis Treatments Medication Instructions Dosage Route Start Date End Date Stat us Acetaminophen PRN 650 mg Oral November 23, 2023 November 21, 2024 Active Iron Sucrose (Venofer) During Dialysis, 1X Week 50 mg Intravenous - push April 25, 2024 April 24, 2025 Active Korsuva (difelikefalin) IVP Dose Post Dialysis, 3X Week 0.9 mL Intravenous - push April 13, 2024 July 03, 2024 Active Mircera During Dialysis, Every 2 weeks 30 mcg Intravenous - push May 18, 2024 May 17, 2025 Active Home Medications Medication Instructions Dosage Route Start Date End Date Status albuterol sulfate 90 mcg/actuation Inhale using inhaler every four hours as needed 2 puff INHALATION January 07, 2023 Active azelastine 137 mcg (0.1 %) NASAL January 11, 2024 Active Milo Low Dose Aspirin 81 mg Take by mouth once a day 1 tablet ORAL October 29, 2020 Active Claritin 10 mg ORAL January 11, 2024 Active clopidogrel 75 mg Take by mouth once a day 1 tablet ORAL March 28, 2024 Active Co Q-10 100 mg Take by mouth once a day 1 capsule ORAL January 07, 2023 Active Dialyvite [id number]-[id number] Take by mouth every evening with meals 1 tablet ORAL January 07, 2023 Active floradix Unknown January 11, 2024 Active hydrocortisone 2.5% Apply to affected area twice a day as needed TOPICAL January 07, 2023 Active iron 5mg Unknown January 11, 2024 Active Lantus U-100 Insulin 100 unit/mL Inject subcutaneously every evening 18 unit SUBCUTANEOUS October 29, 2020 Active Levo-T 175 mcg Take by mouth once a day 1 tablet ORAL October 29, 2020 Active MegaRed [place]-3 Krill Oil 1,000-230-60 mg Take by mouth once a day 1 capsule ORAL January 07, 2023 Active methyl salicylate-menthol 15-10% Apply to affected area three times a day as needed for pain TOPICAL January 07, 2023 Active nitroglycerin 0[address] under tongue as directed as needed for pain 1 tablet SUBLINGUAL January 07, 2023 Active Novolog FlexPen U-100 Insulin 100 unit/mL (3 mL) Inject subcutaneously three times a day with meals 5 unit SUBCUTANEOUS October 29, 2020 Active pantoprazole sodium Unknown January 11, 2024 Active Plavix 75 mg Take by mouth once a day 1 tablet ORAL May 02, 2024 Active pravastatin 80 mg Take by mouth [...] January 07, 2023 Active Singulair 10 mg ORAL January Active tiotropium bromide 18 mcg Inhale using nebulizer once a day 1 capsule INHALATION January 07, 2023 Active Tums Unknown January 11, 2024 Active Tylenol Arthritis Pain 650 mg Take [...] 1 puff INHALATION January 07, 2023 Active zinc 50mg Unknown January 11, 2024 Active VITAL SIGNS Post-Treatment Vital Signs Vital Sign Value Date / Time Blood Pressure-sitting 151/65 mmHg May 20, 2024 11:31 AM Heart Rate 69 beats per minute May 20, 2024 11:31 AM Respiratory Rate 18 breaths per minute May 20, 2024 11:31 AM Temperature 98.1 deg. F May 20 11:31 AM Weight Vital Sign Value Date / Time Estimated Dry Weight 91.5 kg May 11:59 PM Pre-Dialysis 94.10 kg May 20 11:31 AM Post-Dialysis 92.60 kg May 20 11:31 AM Other Other Value Date / Time Height 183 cm October 02, 2023 1 2:00 AM Body Mass Index 27.32 kg/m2 May 17 11:25 AM HEALTH CONCERNS LAB RESULTS Hematology Result Type Result Value Relevant Referen ce Range Interpretation Date Folate, Serum > 24.0 ng/mL No Reference Ran ge Provided - October 05, 2023 Transferrin Sat. (Calc) 28 % 20 - 55 % - December 09, 2023 TIBC 171 mcg/dL 185 - 515 mcg/dL Low December 09, 2023 Neutrophils 78.7 % 40.0 - 75.0 % High December 08 WBC (No Diff) 8.10 1000/mcL 4.80 - 10.80 1000/mcL - December 09, 2023 Platelets 166 1000/mcL 130 - 400 1000/mcL - December 09, 2023 UIBC (Calc) 123 mcg/dL 155 - 355 mcg/dL Low December TIBC 192 mcg/dL 185 - 515 mcg/dL - January UIBC (Calc) 63 mcg/dL 155 - 355 mcg/dL Low January 13, 2024 Ferritin 1228 ng/mL 22 - 322 ng/mL High January 13, 2024 Transferrin Sat. (Calc) 67 % 20 - 55 % High January 13, 2024 Platelets 105 1000/mcL 130 - 400 1000/mcL Low 2023 WBC (No Diff) 5.55 1000/mcL 4.80 - 10.80 1000/mcL - January 13, 2024 Neutrophils 68.2 % 40.0 - 75.0 % - January 13, 2024 Transferrin Sat. (Calc) 62 % 20 - 55 % High February 09 UIBC (Calc) 73 mcg/dL 155 - 355 mcg/dL Low Septemb er 2023 TIBC 191 mcg/dL 185 - 515 mcg/dL - Septembe r 2023 WBC (No Diff) 6.31 1000/mcL 4.80 - 10.80 1000/mcL - February 10, 2024 Neutrophils 70.7 % 40.0 - 75.0 % - February 10, 2024 Platelets 109 1000/mcL 130 - 400 1000/mcL Low Sept ember 2023 Hemoglobin x 3 31.2 % 42.0 - 54.0 % Low Septemb er 2023 Hemoglobin x 3 31.2 % 42.0 - 54.0 % Low Septemb er 2023 WBC (No Diff) 5.42 1000/mcL 4.80 - 10.80 1000/mcL - March 09, 2024 COURTNEY 3.8 % 0.0 - 4.0 % - March 09 MCH 32.1 pg 27.0 - 31.0 pg High March RDW 14.6 % 11.5 - 14.5 % High March 09, 2024 MCHC 33.5 g/dL 30.0 - 36.0 g/dL - March 09, 2024 Eosinophil 3.5 % 0.0 - 7.0 % - March 09, 024 Monocytes 8.5 % 3.0 - 10.0 % - March 09, 2024 Basophils 1.3 % 0.0 - 1.5 % - March 09 024 Lymphocytes 14.9 % 19.0 - 48.0 % Low March Neutrophils 68.0 % 40.0 - 75.0 % - March Iron 103 mcg/dL 45 - 160 mcg/dL - March UIBC (Calc) 81 mcg/dL 155 - 355 mcg/dL Low March 09, 2024 TIBC 184 mcg/dL 185 - 515 mcg/dL Low March 09, 2024 Transferrin Sat. (Calc) 56 % 20 - 55 % High March 09, 2024 Platelets 115 1000/mcL 130 - 400 1000/mcL Low 2023 Hemoglobin x 3 29.4 % 42.0 - 54.0 % Low March 09, 2024 Hemoglobin x 3 29.1 % 42.0 - 54.0 % Low March 16, 2024 Hemoglobin x 3 30.0 % 42.0 - 54.0 % Low March 23, 2024 Hemoglobin x 3 30.0 % 42.0 - 54.0 % Low March 30, 2024 Hemoglobin x 3 28.5 % 42.0 - 54.0 % Low April 06, 2024 Ferritin 1050 ng/mL 22 - 322 ng/mL High April Transferrin Sat. (Calc) 39 % 20 - 55 % - April 13 TIBC 197 mcg/dL 185 - 515 mcg/dL - April 13, 2024 UIBC (Calc) 120 mcg/dL 155 - 355 mcg/dL Low Novembe r 2023 Iron 77 mcg/dL 45 - 160 mcg/dL - April 13, 2024 RDW 13.8 % 11.5 - 14.5 % - April MCHC 33.6 g/dL 30.0 - 36.0 g/dL - April 13, 2024 MCH 31.4 pg 27.0 - 31.0 pg High April Platelets 154 1000/mcL 130 - 400 1000/mcL - [facility] 2023 Hemoglobin x 3 28.2 % 42.0 - 54.0 % Low Novembe r 2023 Monocytes 6.7 % 3.0 - 10.0 % - April 13, 2024 Lymphocytes 6.8 % 19.0 - 48.0 % Low April Neutrophils 83.4 % 40.0 - 75.0 % High April WBC (No Diff) 9.39 1000/mcL 4.80 - 10.80 1000/mcL - April 13, 2024 COURTNEY 1.4 % 0.0 - 4.0 % - April 13, 2024 Basophils 0.3 % 0.0 - 1.5 % - April 13, 2024 Eosinophil 1.4 % 0.0 - 7.0 % - April 13, 2024 Hemoglobin x 3 27.9 % 42.0 - 54.0 % Low Novembe r 2023 Hemoglobin x 3 28.5 % 42.0 - 54.0 % Low Novembe r 2023 HGB 9.5 g/dL 14.0 - 18.0 g/dL Low April 27, 2024 HGB 8.7 g/dL 14.0 - 18.0 g/dL Low May 04, 2024 Hemoglobin x 3 26.1 % 42.0 - 54.0 % Low Novembe r 2023 Neutrophils 75.2 % 40.0 - 75.0 % High May COURTNEY 3.7 % 0.0 - 4.0 % - May 11, 2024 Basophils 0.5 % 0.0 - 1.5 % - May 11, 2024 Eosinophil 3.2 % 0.0 - 7.0 % - May 11, 2024 Monocytes 8.9 % 3.0 - 10.0 % - May 11, 2024 Lymphocytes 8.5 % 19.0 - 48.0 % Low May Iron 77 mcg/dL 45 - 160 mcg/dL - May 11, 2024 TIBC 199 mcg/dL 185 - 515 mcg/dL - May 11, 2024 UIBC (Calc) 122 mcg/dL 155 - 355 mcg/[facility] Transferrin Sat. (Calc) 39 % 20 - 55 % - May 11 MCH 31.1 pg 27.0 - 31.0 pg High May HCT 25.6 % 42.0 - 52.0 % Low May RBC 2.75 mill/mcL 4.70 - 6.10 mill/mcL Low May 11, 2024 WBC (No Diff) 5.70 1000/mcL 4.80 - 10.80 1000/mcL - May 11, 2024 Platelets 177 1000/mcL 130 - 400 1000/mcL - [facility] [id number] Hemoglobin x 3 25.8 % 42.0 - 54.0 % Low Decembe r 2023 HGB 8.6 g/dL 14.0 - 18.0 g/dL Low May 11, 2024 RDW 13.9 % 11.5 - 14.5 % - May MCHC 33.5 g/dL 30.0 - 36.0 g/dL - May 11, 2024 Hemoglobin x 3 24.9 % 42.0 - 54.0 % Low Decee r 2023 HGB 8.3 g/dL 14.0 - 18.0 g/dL Low May 18, 2024 Metabolic/Renal Result Type Result Value Relevant Referen ce Range Interpretation Date Vitamin B12 844 pg/mL 211 - 911 pg/mL - September URR, Calc 70 % 65 - 80 % - March 09 BUN, Post 21 mg/dL 6 - 19 mg/dL High March 09, 2024 BUN 71 mg/dL 6 - 19 mg/dL High March 09, 2024 Creatinine, Serum 7.10 mg/dL 0.60 - 1.30 mg/dL High March 09, 2024 BUN/Creat Ratio 10.0 10.0 - 20.0 - March 09, 2024 Sodium 133 mEq/L 136 - 145 mEq/L Low March Potassium 4.1 mEq/L 3.5 - 5.1 mEq/L - March Chloride 99 mEq/L 96 - 108 mEq/L - March Bicarbonate 21 mEq/L 20 - 31 mEq/L - March URR, Calc 71 % 65 - 80 % - March 11 BUN, Post 20 mg/dL 6 - 19 mg/dL High March 11, 2024 BUN 70 mg/dL 6 - 19 mg/dL High March 11, 2024 URR, Calc 73 % 65 - 80 % - April 13, BUN, Post 22 mg/dL 6 - 19 mg/dL High April 13, 2024 Bicarbonate 21 mEq/L 20 - 31 mEq/L - April Chloride 98 mEq/L 96 - 108 mEq/L - April BUN 81 mg/dL 6 - 19 mg/dL High April 13, 2024 Potassium 4.5 mEq/L 3.5 - 5.1 mEq/L - April 13, 2024 Sodium 132 mEq/L 136 - 145 mEq/L Low April 13, 2024 BUN/Creat Ratio 13.1 10.0 - 20.0 - April 13, 2024 Creatinine, Serum 6.16 mg/dL 0.60 - 1.30 mg/dL High April 13, 2024 BUN/Creat Ratio 17.1 10.0 - 20. - May 11, 2024 Creatinine, Serum 5.32 mg/dL 0.60 - 1.30 mg/dL High May 11, 2024 Potassium 4.9 mEq/L 3.5 - 5.1 mEq/L - May 11, 2024 Sodium 132 mEq/L 136 - 145 mEq/L Low May 11, 2024 Bicarbonate 25 mEq/L 20 - 31 mEq/L - May Chloride 96 mEq/L 96 - 108 mEq/L - May BUN 91 mg/dL 6 - 19 mg/dL High May 11, 2024 URR, Calc 71 % 65 - 80 % - May 11, 2 024 BUN, Post 26 mg/dL 6 - 19 mg/dL High May 11, 2024 HD Adequacy Result Type Result Value Relevant Referen ce Range Interpretation Date Krt/V 0.00 No Reference Ran ge Provided - December 09, 2023 Krt/V 0.00 No Reference Ran ge Provided - January 13, 2024 Krt/V 0.00 No Reference Ran ge Provided - February 10, 2024 wstdKt/V 2.3 No Reference Ran ge Provided - March 09, 2024 wstdKt/V without residual 2.3 No Reference Range Provided - March 09, 2024 wstdKt/V, residual 0.0 No Reference Range Provided - March 09, 2024 Krt/V 0.00 No Reference Ran ge Provided - March 09, 2024 eKt/V ([place]) 1.18 No Reference Range Provided - March 09, 2024 spKt/V Gotch 1.39 No Reference Ran ge Provided - March 09, 2024 spKt/V ([place]ird[place] II) 1.37 No Reference Range Provided - March 09, 2024 wstdKt/V without residual 2.4 No Reference Range Provided - March 11, 2024 wstdKt/V 2.4 No Reference Ran ge Provided - March 11, 2024 wstdKt/V, residual 0.0 No Reference Range Provided - March 11, 2024 spKt/V [facility] 1.49 No Reference Ran ge Provided - March 11, 2024 eKt/V ([place]) 1.24 No Reference Range Provided - March 11, 2024 Krt/V 0.00 No Reference Ran ge Provided - March 11, 2024 spKt/V (Daugirdas II) 1.45 No Reference Range Provided - March 11, 2024 wstdKt/V without residual 2.4 No Reference Range Provided - April 13, 2024 Krt/V 0.00 No Reference Ran ge Provided - April 13, 2024 spKt/V [facility] 1.49 No Reference Ran ge Provided - April 13, 2024 wstdKt/V, residual 0.0 No Reference Range Provided - April 13, 2024 spKt/V ([place]augirdas II) 1.48 No Reference Range Provided - April 13, 2024 eKt/V ([place]) 1.27 No Reference Range Provided - April 13, 2024 wstdKt/V 2.4 No Reference Ran ge Provided - April 13, 2024 wstdKt/V without residual 2.4 No Reference Range Provided - May 11, 2024 wstdKt/V, residual 0.0 No Reference Range Provided - May 11, 2024 wstdKt/V 2.4 No Reference Ran ge Provided - May 11, 2024 spKt/V [facility] 1.50 No Reference Ran ge Provided - May 11, 2024 spKt/V (Daugirdas II) 1.47 No Reference Range Provided - May 11, 2024 Krt/V 0.00 No Reference Ran ge Provided - May 11, 2024 eKt/V ([place]) 1.26 No Reference Range Provided - May 11, 2024 Bone/Mineral Result Type Result Value Relevant Referen ce Range Interpretation Date Magnesium 2.0 mg/dL 1.6 - 2.6 mg/dL - October 05, 2023 Vitamin D 25 Hydroxy 67.7 ng/mL 30.0 - 100.0 ng/mL - October 05, 2023 Magnesium 1.9 mg/dL 1.6 - 2.6 mg/dL - October 08, 024 PTH-Intact, Plasma 159 pg/mL 16 - 80 pg/mL High Dec PTH-Intact, Plasma 137 pg/mL 16 - 80 pg/mL High Dec Magnesium 2.1 mg/dL 1.6 - 2.6 mg/dL - January PTH-Intact, Plasma 128 pg/mL 16 - 80 pg/mL High Jan PTH-Intact, Plasma 143 pg/mL 16 - 80 pg/mL High Feb Corrected Ca x P Product - March 09, 2024 Calcium, Total 9.4 mg/dL 8.7 - 10.4 mg/dL - 2023 Phosphorus 2.4 mg/dL 2.6 - 4.5 mg/dL Low March Ca x P Product - March Magnesium 1.9 mg/dL 1.6 - 2.6 mg/dL - April 13, 2024 Vitamin D 25 Hydroxy 56.9 ng/mL 30.0 - 100.0 ng/mL - April 13, 2024 Calcium, Total 9.5 mg/dL 8.7 - 10.4 mg/dL - 2023 Alkaline Phosphatase 115 U/L 40 - 129 U/L - 2023 Ca x P Product - April Phosphorus 2.4 mg/dL 2.6 - 4.5 mg/dL Low April 13, 2024 Corrected Ca x P Product - April 13 PTH-Intact, Plasma 135 pg/mL 16 - 80 pg/mL High Apr Corrected Ca x P Product - May 11 Calcium, Total 9.4 mg/dL 8.7 - 10.4 mg/dL - 2023 Ca x P Product - May Phosphorus 2.8 mg/dL 2.6 - 4.5 mg/dL - May 11, 2024 Liver/Nutrition Result Type Result Value Relevant Referen ce Range Interpretation Date Globulin (Calc) 3.4 g/dL 2.0 - 4.0 g/dL - 2023 A/G Ratio 1.1 1.0 - 2.0 - March 09 eNPCR 1.05 No Reference Ran ge Provided - March 09, 2024 Total Protein 7.0 g/dL 6.0 - 8.5 g/dL - March 09, 2024 Albumin (BCG) 3.6 g/dL 3.5 - 5.2 g/dL - March 09, 2024 eNPCR 1.16 No Reference Ran ge Provided - March 11, 2024 A/G Ratio 1.1 1.0 - 2.0 - April 13 024 Total Protein 7.2 g/dL 6.0 - 8.5 g/dL - 2023 Globulin (Calc) 3.4 g/dL 2.0 - 4.0 g/dL - 2023 Albumin (BCG) 3.8 g/dL 3.5 - 5.2 g/dL - 2023 eNPCR 1.22 No Reference Ran ge Provided - April 13, 2024 A/G Ratio 1.0 1.0 - 2.0 - May 11 Globulin (Calc) 3.8 g/dL 2.0 - 4.0 g/dL - 2023 Albumin (BCG) 3.7 g/dL 3.5 - 5.2 g/dL - 2023 Total Protein 7.5 g/dL 6.0 - 8.5 g/dL - 2023 eNPCR 1.38 No Reference Ran ge Provided - May 11, 2024 Immunochemistry Result Type Result Value Relevant Reference Range Interpre tation HCV s/co ratio 0.06 0.00 - 0.79 - October 05, 2023 Trace Elements Result Type Result Value Relevant Reference Range Interpre tation Aluminum 8 mcg/L 0 - 10 mcg/L - October 04 24 Aluminum < 5 mcg/L 0 - 10 mcg/L - October 07, 2023 Aluminum 8 mcg/L 0 - 10 mcg/L - April 13, 2024 Infectious Diseases Result Type Result Value Relevant Referen ce Range Interpretation Date Hep B core Ab Total (anti-HBc) Negative No Reference Range Provided - October 05, 2023 HCV Ab (anti-HCV) Nonreactive No Reference R martha Provided - October 05, 2023 Hep B Surface Ab (anti-HBs) 26 mIU/mL No Reference Range Provided - April 13, 2024 Hep B Surface Ag (HBsAg) Negative No Reference Range Provided - May 11, 2024 DIALYSIS PRESCRIPTION Conventional Hemodialysis Data Element Value Order Date/Time May 16, 2024 Frequency 3X Week Treatment Days MonWedFri Dialyzer [id number] Optiflux Treatment Time (Total Minutes) 210 min Blood Flow Rate (mL/min) 450 mL/min Dialysate Flow Rate Manual 800 Estimated Dry Weight 91.5 kg Dialysate Concentrate 2.0 K, 2.5 Ca, 1.0 Mg, 100 Dextrose (G2251) Sodium (mEq/L) 135 mEq/L Bicarb Machine Setting (mEq/L) 34 mEq/L Dialysis Access Hemodialysis-AV Fist lona-Standard, Left Forearm, Other/Unknown Arterial Needle Size 15g1 Venous Needle Size 15g1 IMMUNIZATIONS Vaccine Date Dose Route Status Flu Vaccine - Flublok Trivalent March 23, 2024 0.5 mL Intramuscular Completed Flu Vaccine - Flublok Quadrivalent March 23, 2023 0.5 mL Intramuscular Completed [place]-BioNTechoe[employer] COVID-19 Vac cine, Bivalent, Booster March 17, [...] (mL/min) Dialysate Dialyzer Dialysis Access Meds Admin Decem 2023 Weight 95.00 kg Weight 92.90 kg 03:32:00 450 3.0 K, 2.5 Ca, 1.0 Mg, 100 Dextrose (G3251) 180nre Optifl ux Blood Pressure-sitting 127/63 mmHg Blood Pressure-sit ting 159/68 mmHg Heart Rate 86 beats per minute Heart Rate 69 beats per minute Respiratory Rate 18 breaths per minute Respiratory Rate 18 breaths per minute Temperature 97.7 deg. F Temperature 98.2 deg. F May 18, 2024 Weight 94.80 kg Weight 92.00 kg 03:39:00 450 2.0 K, 2.5 Ca, 1.0 Mg, 100 Dextrose (G2251) 180nre Optiflux Hemodialysis-AV Fistula-Standard, Left Forearm, Other/Unknown 1.3 ML difelikefalin 0.05 MG/ML Injection [Korsuva]; 0.9mL,Intravenous - push Mircera; 30mcg,Intravenous - push Blood Pressure-sitting 136/68 mmHg Blood Pressure-sit ting 138/55 mmHg Heart Rate 77 beats per minute Heart Rate 68 beats per minute Respiratory Rate 16 breaths per minute Respiratory Rate 16 breaths per minute Temperature 98.2 deg. F Temperature 97.8 deg. F May 20, 2024 Weight 94.10 kg Weight 92.60 kg 03:30:00 450 2.0 K, 2.5 Ca, 1.0 Mg, 100 Dextrose (G2251) 180nre Optiflux Hemodialysis-AV Fistula-Standard, Left Forearm, Other/Unknown 1.3 ML difelikefalin 0.05 MG/ML Injection [Korsuva]; 0.9mL,Intravenous - push Blood Pressure-sitting 142/63 mmHg Blood Pressure-sit ting 151/65 mmHg Heart Rate 72 beats per minute Heart Rate 69 beats per minute Respiratory Rate 16 breaths per minute Respiratory Rate 18 breaths per minute Temperature 98.3 deg. F Temperature 98.1 deg. F
--- OUTSIDE RECORDS SUMMARY | 2024-05-23 16:00 | XMS_ITS | Continuity of Care Document ---
Author Organization [facility] Address [address] [place] [id number] Care Team Providers Care Conference Service Coordinator Name Role Phone No pcp no family, Doctor Primary Care Physician Encounter [facility] [id number] Date(s): 06/24/23 - 06/24/23 [facility] [address] [address] Encounter Diagnosis Hip pain(Discharge Diagnosis) - 06/24/23 Arthritis of left hip(Discharge Diagnosis) - 06/24/23 Attending Physician: Greer Childers MD Admitting Physician: Greer Childers MD Referring Physician: No referring, Doctor Reason for Visit L LEG PAIN Allergies, Adverse Reactions, Alerts Substance Reaction Severity Status lisinopril itch Active Reglan yeast Active Lipitor cramps Active PriLOSEC OTC hives Active Medications acetaminophen (acetaminophen 325 mg oral tablet) Status: Ordered Start Date: 06/24/23 Stop Date: 07/01/23 2 Tabs By Mouth 3 Times a Day as needed as needed for pain for 7 Days. Refills: 0. Ordering provider: Mao Thomas NP [employer] #[id number] [address] [place] [address] [phone] acetaminophen (Tylenol 8 Jameson r 650 mg oral tablet, extended release) Status: Ordered Start Date: 08/25/19 1 Tabs By Mouth Every 8 hours as needed Pain 1 - 3 (Mild). Refills: 0. Ordering provider: [facility] [employer] [facility] #[id number] [address] [place] [address] [phone] gabapentin (gabapentin 100 m g oral capsule) Status: Ordered Start Date: 06/24/23 Stop Date: 07/04/23 1 Capsules By Mouth 2 Times a Day as needed Pain 4 - 6 (Moderate) for 10 Days. Refills: 0. Ordering provider: Mao Thomas NP [facility] #[id number] [address] [place] [address] [phone] insulin aspart (NovoLOG Flex Pen) Status: Ordered Start Date: 08/25/19 5 Units Subcutaneous 3 Times a Day Before Meals. lidocaine topical (lidocaine 1.8% topical film) Status: Ordered Start Date: 06/24/23 Stop Date: 07/04/23 1 Patches Topical Daily as needed Pain (1-3)/Fever for 10 Days. leave on up to 12 hours. Refills: 0. Ordering provider: Mao Thomas NP [employer] #[id number] [address] [place] [address] [phone] Problem List No Known Problems Procedures Procedure Date Related Diagnosis Body Site Status Collection of venous blood b y venipuncture 06/24/23 Completed Results Laboratory List Name Date CBC with Diff 06/24/23 Comprehensive Metabolic Panel 06/24/23 Auto Diff 06/24/23 POC Glucose 06/24/23 06/24/23 Test Result Reference Range [facility]imen [facility] WBC 6.84 x10e3/mcL (Normal is 4.30-11.00 x10e3/mcL) [facility] RBC 2.74 x10e6/mL (Normal is 4.60-6.20 x10e6/mL) [facility] Hgb 9.10 gm/dL (Normal is 14.00-18.00 gm/dL) [facility] Hct 27.70 % (Normal is 40.00-54.00 %) [facility] MCV 101.1 Femtoliters (Normal is 80.0-100.0 Femtoliters) [facility] MCH 33.20 pg (Normal is 26.00-33.00 pg) [facility] MCHC 32.90 gm/dL (Normal is 31.00-36.00 gm/dL) [facility] RDW-CV 14.20 % (Normal is 11.70-15.00 %) [facility] Plt 146 x10e3/mcL (Normal is 150-3 75 x10e3/mcL) [facility] MPV 10.80 Femtoliters (Normal is 0.00-11.00 Femtoliters) [facility] Neut % Auto 76.4 % (Normal is 40.0-70.0 %) [facility] Lymph % Auto 13.0 % (Normal is 25.0-40.0 %) [facility] [place] % Auto 8.5 % (Normal is 0.0-14.0 %) [facility] Eos % Auto 1.8 % (Normal is 0.0-6 .0 %) [facility] Baso % Auto 0.3 % (Normal is 0.0-2 .0 %) [facility] Neut # Auto 5.2 x10e3/mcL (Normal is 2.0-7 .0 x10e3/mcL) [facility] Lymph # Auto 0.9 x10e3/mcL (Normal is 1.3-4 .4 x10e3/mcL) [facility] [place] # Auto 0.6 x10e3/mcL (Normal is 0.0-1 .4 x10e3/mcL) [facility] Eos # Auto 0.1 x10e3/mcL (Normal is 0.0-0 .5 x10e3/mcL) [facility] Baso # Auto 0.0 x10e3/mcL (Normal is 0.0-0 .2 x10e3/mcL) [facility] Glucose Level 112 mg/dL (Normal is 74-10 6 mg/dL) [facility] POC Glucose 118 mg/dL (Normal is 70-10 5 mg/dL) [facility] Sodium 131.0 mmol/L (Normal is 136.0-145.0 mmol/L) [facility] Potassium 3.90 mmol/L (Normal is 3.50-5.10 mmol/L) [facility] Chloride 92 mmol/L (Normal is 98-10 7 mmol/L) [facility] CO2 31.90 mmol/L (Normal is 21.00-32.00 mmol/L) [facility] Anion Gap 7 mmol/L (Normal is 3-11 mmol/L) [facility] BUN 16.0 mg/dL (Normal is 7.0-18.0 mg/dL) [facility] Creatinine 3.81 mg/dL (Normal is 0.60-1.30 mg/dL) [facility] BUN/Creat Ratio 4 Ratio (Normal is 6-22 Ratio) [facility] Calcium 8.80 mg/dL (Normal is 8.50-10.10 mg/dL) [facility] Albumin. Level 3.3 gm/dL (Normal is 3.4-5 .0 gm/dL) [facility] TP 8.10 gm/dL (Normal is 6.40-8.20 gm/dL) [facility] A/G Ratio 0.7 Ratio (Normal is 1.0-2 .5 Ratio) [facility] T Bili 0.60 mg/dL (Normal is 0.20-1.00 mg/dL) [facility] Alk Phos 91.0 units/L (Normal is 46.0-116.0 units/L) [facility] AST 23.0 Intl_units/L (Normal is 15.0-37.0 Intl_units/L) [facility] ALT 16.0 units/L (Normal is 12.0-78.0 units/L) [facility] Estimated Creatinine Clearance 15.56 mL/min 1 eGFR Cr 15 mL/min/1.73m2 2 [facility] b eGFR Pediatric Not Reported mL/min/1.73m2 3 (Normal is >=75 mL/min/1.73m2) [facility] Globulin 4.8 gm/dL (Normal is 1.9-3 .7 gm/dL) [facility] Calc Osmo 256 (Normal is 285-295) [facility] 1Result Comment: Calculated using method: Cockroft-Gault 2Result Comment: No previous creatinine in the last 72 hours; eGFR may not be reflective of the patient???s kidney function if creatinine is rapidly changing. 3Result Comment: Not reported for adult patients ( > 18 years old ). Laboratory Information [facility] CLIA Number: [id number] [facility] [address] [facility] CLIA Number: [id number] [facility] [address] Lab CLIA Number: [id number] [address] Vital Signs 06/24/23 Temperature (Route Not Specified) 36.9 DegC (Normal is 36.5-37.3 DegC) Peripheral Pulse Rate 77 bpm (Normal is 60-100 bpm) Respiratory Rate 18 br/min (Normal is 12-2 0 br/min) Blood Pressure 110/61mmHg (Normal is 90-13 5/60-80 mmHg) Height 182.88 cm Weight 92.53 kg Social History Social History Type Response Smoking Status Never smoker Sex Male Hospital Discharge Instructions Patient Education 06/24/2023 22:15:10 OSTEOARTHRITIS Osteoarthritis Osteoarthritis happens??when the cartilage in a joint becomes damaged and worn. This may be from age, wear and tear, overuse of the joint, obesity, or other problems. Osteoarthritis??can affect any joint, but it's most common in??hands, knees, spine, hips, and feet. Symptoms include joint stiffness, and pain. It's also called degenerative joint disease. Home care ???When a joint is more sore than usual, rest it for 1 or 2 days. ???Heat can help relieve stiffness. Take a hot bath or apply a heating pad for up to 30 minutes at a time. If symptoms are worse in the morning, using heat just after awakening can help relax the muscle and soothe the joints.?Ice helps relieve pain. It's often used after activity. Use a cold pack wrapped in a thin cloth on the joint for 10 to 15 minutes at a time.?Alternating hot and cold can also help relieve pain. Try this for 20 minutes at a time, several times per day. ???Exercise helps prevent the muscles and ligaments around the joint from becoming weak.??It also helps maintain function in the joint.??Be as active as you can. Talk to your healthcare provider about what activity program is best for you. ???Excess weight puts a lot of extra strain on weight-bearing joints of the lower back, hips, knees, feet, and ankles. If you are overweight, talk to your provider about a safe and effective weight loss program. ???Use anti-inflammatory medicines as prescribed for pain. This includes acetaminophen or NSAIDs (nonsteroidal anti-inflammatory drugs) such as ibuprofen or naproxen. Don't take NSAIDs if your provider has told you that you can't take NSAIDS because of other health problems. If needed, topical or injected medicines may be advised. Talk with your provider if these choices aren't enough to manage your pain. Follow the directions on all fftp-avq-tqvycll medicines. If you're taking NSAIDs routinely, talk to your provider. ???Talk with your provider about devices that might help improve your function and reduce pain. ???Talk with your provider about physical therapy to help strengthen your joints and the nearby muscles. Follow-up care Follow up with your healthcare provider, or as advised. When to get medical advice Call your healthcare provider right away if any of the following occur: ???Redness or swelling of a painful joint ???Discharge or pus from a painful joint ???Fever of??100.4??F (38??C)??or higher, or as directed by your healthcare provider ???Joint pain that gets worse ???Decreased ability to move the joint or bear weight on the joint ?? [id number] [employer]. All rights reserved. This information is not intended as a substitute for professional medical care. Always follow your healthcare professional's instructions. Patient Care team information Care Team Personnel Name: No pcp no family MD, Doctor Member Role: Primary Care Physician Address: Address: [address] [place] [phone] [facility] Care Team Related Persons Name: SUZANNE SERRANO Address: Home [address] [place], [place] [id number]
--- OUTSIDE RECORDS SUMMARY | 2024-05-23 16:01 | XMS_ITS | Continuity of Care Document ---
Author Organization [facility] Address [address] [place] [address]- Care Team Providers Care Finisher Plate Name Role Phone CINTHYA YOUSSEF MD, KHUSHBOO DALLAS Primary Care P riley Encounter Date(s): 06/16/23 - 06/16/23 [facility] [address] [place], [place] [address] Encounter Diagnosis Long-term current use of antibiotics for prevention of recurrent infection (Discharge Diagnosis) - 06/16/23 Discharge Disposition: 01-Discharged to Home Self Care Attending Physician: ROSHNI SALAZAR MD Admitting Physician: ROSHNI SALAZAR MD Referring Physician: ROSHNI SALAZAR MD Allergies, Adverse Reactions, Alerts Substance Reaction Severity Status omeprazole Active lisinopril Active Reglan Active Lipitor Active Medications Levaquin 500 mg oral tablet = 1 tab, Oral, q24hR, X 7 day, # 7 tab, 0 Refill(s), Acute Start Date: 06/16/23 Stop Date: 06/23/23 Status: Ordered Mental Status 06/16/23 Gait Steady Characteristics of Speech Clear Aspiration Risk None Facial Symmetry Symmetric 06/16/23 Orientation Assessment Identifies self Problem List Condition Confirmation Course Effective Dates Status Health St [facility] Informant Diabetes Confirmed Active patient ESRD needing dialysis Confirmed Active patient Elevated cholesterol Confirmed Active patient Procedures Procedure Date Related Diagnosis Body Site Status Dialysis catheter 1 Compl eted 1LAVA Results Laboratory List Name Date Complete Urinalysis 06/16/23 Complete Blood Count w/ Automated Differ ential 06/16/23 Comprehensive Metabolic Panel 06/16/23 Most recent to oldest [Reference Range]: 1 Sodium [136-145 mmol/L] 135 mmol/L *LOW* (06/16/23 3:33 PM) Potassium [3.5-5.1 mmol/L] 4.3 mmol/L (06/16/23 3:33 PM) Chloride [98-107 mmol/L] 95 mmol/L *LOW* (06/16/23 3:33 PM) Carbon Dioxide Lvl [22-29 mmol/L] 28 mmo l/L (06/16/23 3:33 PM) BUN [8-23 mg/dL] 36 mg/dL *HI* (06/16/23 3:33 PM) Albumin Lvl [3.5-5.2 gm/dL] 3.8 gm/dL (06/16/23 3:33 PM) Calcium Lvl [8.8-10.2 mg/dL] 9.6 mg/dL (06/16/23 3:33 PM) Glucose Lvl [74-109 mg/dL] 116 mg/dL *HI* (06/16/23 3:33 PM) GFR Non AfroAmerican 9 *NA* (06/16/23 3:33 PM) Bilirubin, Total [0.0-1.2 mg/dL] 0.4 mg/ dL (06/16/23 3:33 PM) AST [<=50 IU/L] 20 IU/L (06/16/23 3:33 PM) ALT [<=50 IU/L] 6 IU/L (06/16/23 3:33 PM) Alkaline Phosphatase [40-129 IU/L] 77 IU /L (06/16/23 3:33 PM) Total Protein [6.0-8.0 gm/dL] 8.2 gm/dL *HI* (06/16/23 3:33 PM) Bacteria [None /HPF] Moderate /HPF *ABN* (06/16/23 5:14 PM) Bilirubin [Negative] Negative (06/16/23 5:14 PM) Clarity [Clear] Ex.Turbid *ABN* (06/16/23 5:14 PM) Color [Yellow] Light Mcnairy *ABN* (06/16/23 5:14 PM) Glucose [Negative] Negative (06/16/23 5:14 PM) Hyaline Cast [0-1 /LPF] 20-50 /LPF *ABN* (06/16/23 5:14 PM) Ketone [Negative] Negative (06/16/23 5:14 PM) Leukocyte Esterase [Negative] 4+ *ABN* (06/16/23 5:14 PM) Nitrite [Negative] Negative (06/16/23 5:14 PM) PH [5.00-7.00] 7.50 *HI* (06/16/23 5:14 PM) Platelet Count [146-388 th/uL] 130 th/uL *LOW* (06/16/23 3:33 PM) Protein [Negative] 3+ *ABN* (06/16/23 5:14 PM) RBC, Urine [0-2 /HPF] TNTC /HPF *ABN* (06/16/23 5:14 PM) Specific [place] [1.005-1.030] 1.016 (06/16/23 5:14 PM) Squamous Epithelial Cells [1-5 /LPF] 0-1 /LPF (06/16/23 5:14 PM) Blood [Negative] 2+ *ABN* (06/16/23 5:14 PM) Urobilinogen [Normal mg/dL] Normal mg/dL (06/16/23 5:14 PM) WBC Clumps [None /LPF] 5-9 /LPF *ABN* (06/16/23 5:14 PM) WBC, Urine [0-1 /HPF] TNTC /HPF *ABN* (06/16/23 5:14 PM) White Blood Cell Count [4.80-10.90 th/uL ] 5.40 th/uL (06/16/23 3:33 PM) Red Blood Cell Count [3.81-5.27 m/uL] 2. 78 m/uL *LOW* (06/16/23 3:33 PM) Hemoglobin [11.6-15.9 gm/dL] 9.2 gm/dL *LOW* (06/16/23 3:33 PM) Hematocrit [34.1-47.5 %] 27.7 % *LOW* (06/16/23 3:33 PM) Mean Corpuscular Volume [84.0-96.0 fL] 9 9.6 fL *HI* (06/16/23 3:33 PM) Mean Corpuscular Hemoglobin [27.9-33.1 p g] 33.1 pg (06/16/23 3:33 PM) Mean Corpuscular HgB Concentration [29.7 2-34.50 gm/dL] 33.20 gm/dL (06/16/23 3:33 PM) Mean Platelet Volume [8.93-13.83 fL] 11. 20 fL (06/16/23 3:33 PM) Absolute Basophils [0.00-0.10 th/uL] 0.0 3 th/uL (06/16/23 3:33 PM) Percent Basophils [0.0-1.3 %] 0.6 % (06/16/23 3:33 PM) Absolute Eosinophils [0.00-0.40 th/uL] 0 .18 th/uL (06/16/23 3:33 PM) Percent Eosinophils [0.0-4.8 %] 3.3 % (06/16/23 3:33 PM) Absolute Immature Granulocytes [0.00-0.1 0 th/uL] 0.02 th/uL (06/16/23 3:33 PM) Percent Immature Granulocytes [0.0-1.0 % ] 0.4 % (06/16/23 3:33 PM) Absolute Lymphocytes [0.80-3.30 th/uL] 0 .84 th/uL (06/16/23 3:33 PM) Percent Lymphocytes [11.8-40.8 %] 15.6 % (06/16/23 3:33 PM) Absolute Monocytes [0.20-1.00 th/uL] 0.6 5 th/uL (06/16/23 3:33 PM) Percent Monocytes [3.70-11.80 %] 12.10 % *HI* (06/16/23 3:33 PM) Absolute Neutrophils [2.30-7.70 th/uL] 3 .67 th/uL (06/16/23 3:33 PM) Percent Neutrophils [49.0-77.6 %] 68.0 % (06/16/23 3:33 PM) Absolute NRBC 0.00 *NA* (06/16/23 3:33 PM) Percent NRBC 0.0 *NA* (06/16/23 3:33 PM) Red Cell Distribution Width CV [12.20-15 .80 %] 14.50 % (06/16/23 3:33 PM) Red Cell Distribution Width SD [38.93-51 .44 fL] 53.30 fL *HI* (06/16/23 3:33 PM) Estimated Creatinine Clearance 9.89 mL/m in 1 (06/16/23 4:05 PM) Anion Gap [6-16 mEq/L] 16 mEq/L (06/16/23 3:33 PM) Creatinine [0.7-1.2 mg/dL] 6.0 mg/dL *HI* (06/16/23 3:33 PM) Collection Method RANDOM URINE (06/16/23 5:14 PM) GFR AfroAmerican 11 *NA* (06/16/23 3:33 PM) Bun/Crea Ratio [6-22] 6 (06/16/23 3:33 PM) 1Result Comment: Calculated using method: Cockcroft-Gault ([place] Weight) Vital Signs Most recent to oldest [Reference Range]: 1 2 Blood Pressure [90-140/60-90 mmHg] 148/6 7mmHg *HI* (06/16/23 3:09 PM) 121/65mmHg (06/16/23 1:26 PM) Temperature Oral [96.4-99.1 DegF] 98.7 D egF (06/16/23 3:09 PM) 98 DegF (06/16/23 1:26 PM) Peripheral Pulse Rate [60-100 bpm] 72 bp m (06/16/23 3:09 PM) 72 bpm (06/16/23 1:26 PM) Respiratory Rate [14-20 br/min] 18 br/mi n (06/16/23 3:09 PM) 17 br/min (06/16/23 1:26 PM) Mean Arterial Pressure, Cuff 94 mmHg (06/16/23 3:09 PM) SpO2 [94-100 %] 98 % (06/16/23 3:09 PM) 96 % (06/16/23 1:26 PM) Oxygen Therapy Room air (06/16/23 3:09 PM) Room air (06/16/23 1:26 PM) Social History Social History Type Response Sex Hospital Discharge Instructions Patient Education 06/16/2023 17:01:30 Antibiotic Use, Uoor-go-Rsgv Antibiotic Medication Antibiotic medicine helps fight germs. Germs cause infections. This type of medicine will not work for colds, flu, or other viral infections. Tell your doctor if you: ??? Are allergic to any medicines. ??? Are or are trying to get . ??? Are taking other medicines. ??? Have other medical problems. HOME CARE ??? Take your medicine with a glass of water or food as told by your doctor. ??? Take the medicine as told. Finish them even if you start to feel better. ??? Do not give your medicine to other people. ??? Do not use your medicine in the future for a different infection. ??? Ask your doctor about which side effects to watch for. ??? Try not to miss any doses. If you miss a dose, take it as soon as possible. If it is almost time for your next dose, and your dosing schedule is: ??? Two doses a day, take the missed dose and the next dose 5 to 6 hours later. ??? Three or more doses a day, take the missed dose and the next dose 2 to 4 hours later, or doubleyour next dose. ??? Then go back to your normal schedule. GET HELP RIGHT AWAY IF: ??? You get worse or do not get better within a few days. ??? The medicine makes you sick. ??? You develop a rash or any other side effects. ??? You have questions or concerns. MAKE SURE YOU: ??? Understand these instructions. ??? Will watch your condition. ??? Will get help right away if you are not doing well or get worse. Document Released: 03/03/2009 Document Revised: 08/16/2012 Document Reviewed: 04/30/2010 ExitCare?? Patient Information ??2015 [employer]. This information is not intended to replace advice given to you by your health care provider. Make sure you discuss any questions you have with your health care provider. Follow Up Care 06/16/2023 13:25:16 With:KHUSHBOO HILLMAN MD Address: [facility] [place] [address]- When:1to 2 days Comments:go tomorrow or for irrigation with gentamycin as a walking.? Patient Care team information Care Team Personnel Name: KHUSHBOO HILLMAN MD Position: Physician 2.0 Member Role: Primary Care Physician Name: Marina Salas Position: Flex RN Member Role: ED Nurse Name: SILVANA LIM MD Position: Physician - Emergency Medicine Member Role: ED Physician Name: GRADY BECK MD Position: Ambulatory: Resident Member Role: Resident Care Team Related Persons Name: SUZANNE SERRANO
--- OUTSIDE RECORDS SUMMARY | 2024-05-23 16:32 | XMS_ITS | Continuity of Care Document ---
Author Name [facility] Organization [facility] Care Team Providers Care Life Sciences Manager Name Role Phone [facility] Unavailable Unavailable Problems Combined list of problems from Department of Defense and Veterans 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 It does not include entries that were removed or entered in error. Problem Status Onset Date Problem Type Date of Resolution Comments Source Adenoma of large intestine Active Condition Jan 17, 2005 Entered By: TOMMY SARMIENTO Comment: colonoscopy and polypectomy 12/10, tubular adenoma at [facility] Cataract, Senile, Unsp Active Condition [facility] Chronic cough Active Condition [facility] Chronic obstructive lung disease Active Condition [facility] Chronic rhinitis Active Condition [facility] Coronary arteriosclerosis Active Condition Nov 10 7 Entered By: LIZZETTE WEI Comment: s/p MVCPn0d at [facility] in 07/15 [facility] Diabetes mellitus Active Condition [facility] Diabetic neuropathy Active Condition [facility] Diabetic renal disease Active Condition Dec 02, 2018 Entered By: CARLOS DALTON Comment: 10/2018: started hemodialysis @ [facility] in [facility] 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 [facility] Dyslipidemia Active Condition [facility] End-stage renal disease Active Condition [facility] Essential hypertension Active Condition [facility] Exposure to potentially hazardous substance Active Condition Dec 18, 2022 Entered By: CORRINE MATHEWS Comment: Asbestos [facility] Ganglion of wrist Active Condition [facility] Gastroesophageal reflux disease without esophagitis Active Condition [facility] Hemorrhoid Active Condition [facility] Hyperparathyroidism due to renal insufficiency Active Condition [facility] Hypothyroidism Active Condition [facility] Incontinence of feces Active Condition [facility] Indwelling catheter inserted Active Condition [facility] Obstructive Sleep Apnea of Adult (SCT [id number]) Active Condition October 28, 2022 Entered By: KINGS ROCHA Comment: APAP: 10-20, Ramp: 5x10 min, [place] [facility] Oropharyngeal dysphagia Active Condition Dec 14, 2022 Entered By: CORRINE MATHEWS Comment: 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 Shared care - organizational effectiveness consultant and GP Active Condition Dec 02 Entered By: CARLOS DALTON Comment: 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 Diagnosis: ICD-10-CM H90.3 Sensorineural hearing loss, bilateral Active Diagnosis [facility] Diagnosis: ICD-10-CM Z01.118 Encntr for exam of ears and hearing w oth abnormal findings Active Diagnosis [facility] Diagnosis: ICD-10-CM H04.129 Dry eye syndrome [...] Chronic obstructive pulmonary disease, unspecified Active [facility] Diagnosis: ICD-10-CM Z65.8 Oth problems related to psychosocial circumstances Active Diagnosis [facility] Diagnosis: ICD-10-CM R05.3 Chronic cough Active Diagnosis [facility] Medications Combined list of outpatient medications [...] G SHAKE WELL (FOR IMMEDIAT E RELIEF). RESPIR ATORY (INHAL ATION) ACTIVE 11/09/2024 [id number] 4 CASANDRA DALTON 2023 2 [facility] ALBUTEROL 90MCG/ACTUA T (CFC-F) INHL,ORAL,8 .5GM DOSE COUNTER INHALE 2 PUFFS BY INHALATI ON EVERY 4 HOURS NEEDED FOR BREATHIN G SHAKE WELL (FOR IMMEDIAT E RELIEF). RESPIR ATORY (INHAL ATION) DISCONT INUED 08/21/2023 [id number] 4 CASANDRA DALTON 2022 2 [facility] AZELASTINE HCL 137MCG/SPRA Y INHL,NASAL, 30ML SPRAY 1 PUFF IN EACH NOSTRIL TWICE A DAY FOR NASAL SYMPTOMS NASAL ACTIVE 12/31/2024 [id number] 4 RODRÍGUEZ MATHEWS 2023 2 [facility] CALCIUM CARBONATE TAB,CHEWABL E CHEW ONE TABLET BY MOUTH FOUR TIMES A DAY NEEDED ORAL ACTIVE RODRÍGUEZ MATHEWS 2022 [facility] COENZYME Q10 CAP/TAB TAKE ONE TABLET BY MOUTH EVERY DAY ORAL ACTIVE CASANDRA DALTON 2012 [facility] CYCLOSPORIN E 0.05% (PF) EMULSION,OP H,0.4ML INSTILL 1 DROP BOTH EYES TWICE A DAY OPHTHA LMIC ACTIVE 08/10/2024 [id number] 4 FB-PURFEE RST,MATHEW OD 2023 60 [facility] DEXTROMETHO RPHAN HBR 10MG/GUAIFE NESIN 100MG/5ML (AF & SF) LIQUID TAKE 1 TEASPOON FUL BY MOUTH EVERY 4 HOURS NEEDED FOR COUGH AND CONGESTI ON ORAL 03/09/2024 [id number] 4 RODRÍGUEZ MATHEWS 2022 120 [facility] DIALYVITE TAB TAKE 1 TABLET BY MOUTH EVERY DAY ORAL ACTIVE 07/02/2024 [id number] 4 RODRÍGUEZ MATHEWS 2023 100 [facility] DIALYVITE TAB TAKE 1 TABLET BY MOUTH EVERY DAY ORAL DISCONT INUED 09/10/2023 [id number] BISI RODRÍGUEZ 2022 100 [facility] FLUTICASONE 250MCG/SALM ETEROL 50MCG INHL,ORAL,D ISKUS,60 INHALE 1 PUFF BY INHALATI ON TWICE A DAY TO PREVENT TROUBLE BREATHIN G -RINSE MOUTH AFTER USING RESPIR ATORY (INHAL ATION) ACTIVE 12/28/2024 [id number] 4 BISI RODRÍGUEZ 2023 3 [facility] FLUTICASONE 250MCG/SALM ETEROL 50MCG INHL,ORAL,D ISKUS,60 INHALE 1 PUFF BY INHALATI ON TWICE A DAY TO PREVENT TROUBLE BREATHIN G -RINSE MOUTH AFTER USING RESPIR ATORY (INHAL ATION) DISCONT INUED 09/23/2023 [id number] 4 BISIRODRÍGUEZ 2022 3 [facility] INSULIN,ASP ART,HUMAN (EQV-NOVOLO G) 100 UNIT/ML,FLE XPEN,3ML INJECT 5 UNITS UNDER THE SKIN BEFORE MEALS FOR DIABETES SUBCUT ANEOUS ACTIVE 10/26/2024 [id number] 4 BISIRODRÍGUEZ 2023 5 [facility] INSULIN,ASP ART,HUMAN (EQV-NOVOLO G) 100 UNIT/ML,FLE XPEN,3ML INJECT 5 UNITS UNDER THE SKIN TWICE A DAY TO DECREASE BLOOD SUGAR-- INJECT IMMEDIAT LINDA BEFORE MEAL (PEN FILL APPROVED ) REPLACES REGULAR INSULIN PEN SUBCUT ANEOUS 05/13/2023 [id number] 3 BISIRODRÍGUEZ 2021 5 [facility] INSULIN,GLA RGINE,HUMAN 100 UNIT/ML INJ,SOLOSTA R,3ML INJECT 18 UNITS UNDER THE SKIN EVERY DAY FOR DIABETES DISCAR D PEN 28 DAYS AFTER INITIAL USE SUBCUT ANEOUS DISCONT INUED 05/13/2023 [id number] 3 RODRÍGUEZ MATHEWS 2021 5 [facility] INSULIN,GLA RGINE,HUMAN 100 UNIT/ML INJ,SOLOSTA R,3ML INJECT 18 UNITS UNDER THE SKIN EVERY DAY FOR DIABETES DISCAR D PEN 28 DAYS AFTER INITIAL USE SUBCUT ANEOUS DISCONT INUED (EDIT) 06/06/2024 [id number] 4 RODRÍGUEZ MATHEWS 2023 5 [facility] INSULIN,GLA RGINE-YFGN 100UNIT/ML INJ PEN,3ML INJECT 18 UNITS UNDER THE SKIN EVERY DAY FOR DIABETES DISCAR D PEN 28 DAYS AFTER INITIAL USE SUBCUT ANEOUS ACTIVE 06/09/2024 [id number] 4 RODRÍGUEZ MATHEWS 2023 5 [facility] LEVOTHYROXI NE NA 200MCG TAB (SYNTHROID) TAKE ONE TABLET BY MOUTH EVERY DAY FOR THYROID ORAL ACTIVE 12/28/2024 [id number] 4 RODRÍGUEZ MATHEWS [address] [facility] LEVOTHYROXI NE NA 200MCG TAB (SYNTHROID) TAKE ONE TABLET BY MOUTH EVERY DAY FOR THYROID ORAL DISCONT INUED 01/13/2024 [id number] 4 RODRÍGUEZ MATHEWS 2022 90 [place] [facility] LORATADINE 10MG TAB TAKE ONE TABLET BY MOUTH EVERY DAY NEEDED ORAL ACTIVE RODRÍGUEZ MATHEWS 2022 [place] [facility] MARINE LIPID (FISH OIL) CAP,ORAL TAKE 1200MG BY MOUTH EVERY DAY ORAL ACTIVE CASANDRA DALTON 2010 [place] [facility] MONTELUKAST NA 10MG TAB TAKE ONE TABLET BY MOUTH EVERY DAY ORAL 05/08/2024 [id number] 4 CASANDRA DALTON [address] [facility] NITROGLYCER IN 0.4MG TAB,SUBLING UAL DISSOLVE ONE TABLET UNDER THE TONGUE PRN SUBLIN GUAL ACTIVE CASANDRA DALTON [address] [facility] PANTOPRAZOL E NA 40MG TAB,EC TAKE ONE TABLET BY MOUTH EVERY DAY ONE-HALF HOUR BEFORE EATING. ORAL ACTIVE 07/02/2024 [id number] 4 CASANDRA DALTON 2023 90 [place] [facility] PANTOPRAZOL E NA 40MG TAB,EC TAKE ONE TABLET BY MOUTH EVERY DAY ONE-HALF HOUR BEFORE EATING. ORAL DISCONT INUED 05/29/2023 [id number] 3 CASANDRA DALTON [address] [facility] PRAVASTATIN NA 40MG TAB TAKE ONE TABLET BY MOUTH AT BEDTIME FOR CHOLESTE ROL ORAL ACTIVE 06/06/2024 [id number] 4 RODRÍGUEZ MATHEWS 2023 90 [place] [facility] PRAVASTATIN NA 40MG TAB TAKE ONE TABLET BY MOUTH AT BEDTIME FOR CHOLESTE ROL ORAL DISCONT INUED 06/05/2024 [id number] 3 CASANDRA DALTON [address] [facility] PRAVASTATIN NA 40MG TAB TAKE ONE TABLET BY MOUTH AT BEDTIME FOR CHOLESTE ROL ORAL DISCONT INUED 05/29/2023 [id number] 3 CASANDRA DALTON [address] [facility] SULFAMETHOX AZOLE 800MG/TRIME THOPRIM 160MG TAB TAKE 1 TABLET BY MOUTH TWICE A DAY ORAL 01/30/2024 [id number] 4 RODRÍGUEZ MATHEWS 2023 20 [place] [facility] TIOTROPIUM 2.5MCG/ACTU AT INHL,ORAL,6 0D,4GM INHALE TWO PUFFS BY INHALATI ON EVERY DAY FOR ASTHMA RESPIR ATORY (INHAL ATION) ACTIVE 04/01/2025 [id number] 4 MERLYNHI NA 2023 1 [place] [facility] TIOTROPIUM 2.5MCG/ACTU AT INHL,ORAL,6 0D,4GM INHALE TWO PUFFS BY INHALATI ON EVERY DAY FOR ASTHMA RESPIR ATORY (INHAL ATION) DISCONT INUED 08/26/2024 [id number] 4 MERLYNID NA 2023 1 [facility] TIOTROPIUM 2.5MCG/ACTU AT INHL,ORAL,6 0D,4GM INHALE TWO PUFFS BY INHALATI ON EVERY DAY FOR ASTHMA RESPIR ATORY (INHAL ATION) DISCONT INUED 10/29/2023 [id number] 4 MERLYNID NA 2022 1 [facility] VANICREAM APPLY THIN LAYER TOPICALL Y EVERY DAY FOR DRY SKIN TOPICA L ACTIVE 12/28/2024 [id number] 4 RODRÍGUEZ MATHEWS 2023 1362 [facility] VANICREAM APPLY THIN LAYER TOPICALL Y EVERY DAY FOR DRY SKIN TOPICA L DISCONT INUED 12/19/2023 [id number] 4 RODRÍGUEZ MATHEWS 2022 1362 [facility] VITAMIN E 400UNT CAP TAKE 1 CAPSULE BY MOUTH EVERY DAY ORAL ACTIVE [facility] 2013 [facility] ZINC SULFATE TAB TAKE 50MG BY MOUTH EVERY DAY ORAL ACTIVE [facility] 2014 [facility] Allergies, Adverse Reactions, Alerts Combined list of allergies from Department of Defense and [facility] 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 It does not include entries that were removed or entered in error. Substance Category Reaction Severity Reaction type Status Date Reported Comments Source ATORVASTATIN Propensity to adverse reactions to drug (finding) Pain in lower limb active 9 [facility] DOXYCYCLINE Propensity to adverse reactions to drug (finding) PRURITIS, Eruption active 4 [facility] HYDROCODONE Propensity to adverse reactions to drug (finding) Disorientat ed, Drowsy, Hallucinati ons active 3 [facility] LIPITOR Propensity to adverse reactions to drug (finding) Cramp active 0 [facility] LISINOPRIL Propensity to adverse reactions to drug (finding) Abdominal discomfort active 7 [facility] METOCLOPRAMI DE Propensity to adverse reactions to drug (finding) Gynecomasti a active 0 [facility] OMEPRAZOLE Propensity to adverse reactions to drug (finding) Diarrhea active 0 [facility] SIMVASTATIN Propensity to adverse reactions to drug (finding) MUSLCE CRAMPS active 4 [facility] Immunizations Combined list of available immunizations from the Department of Defense and Veterans 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 Immunization Series Date Given Administered By Site Reaction Lot Number CVX Code Drug Spool Cleaner Status Comments Source INFLUENZA, RECOMBINANT, QUADRIVALENT, PF 2022 185 complet ed [facility] TDAP 2022 [facility] RIGHT DELTO ID [id number] 115 complet ed [facility] INFLUENZA, UNSPECIFIED FORMULATION 2021 88 complet ed [facility] COVID-19 (PFIZER), MRNA, LNP-S, PF, 30 MCG/0.3 ML DOSE, ALY-SUCROSE (AGES 12+ YEARS) 2021 217 complet ed [facility] COVID-19 (PFIZER), MRNA, LNP-S, PF, 30 MCG/0.3 ML DOSE 2020 208 complet ed [facility] INFLUENZA, UNSPECIFIED FORMULATION 2020 88 complet ed [facility] ZOSTER RECOMBINANT 2 2020 187 complet ed [facility] COVID-19 (PFIZER), MRNA, LNP-S, PF, 30 MCG/0.3 ML DOSE 2020 208 complet ed [facility] COVID-19 (PFIZER), MRNA, LNP-S, PF, 30 MCG/0.3 ML DOSE 2020 208 complet ed [facility] ZOSTER RECOMBINANT 1 2019 187 complet ed [facility] INFLUENZA, SEASONAL, INJECTABLE, PRESERVATIVE FREE 2019 140 complet [facility] INFLUENZA, UNSPECIFIED FORMULATION 2018 88 complet ed [facility] INFLUENZA, SEASONAL, INJECTABLE, PRESERVATIVE FREE 2017 140 complet ed [facility] INFLUENZA, HIGH DOSE SEASONAL 2016 135 complet ed [facility] INFLUENZA, HIGH-DOSE, TRIVALENT, PF 2015 135 complet ed [facility] INFLUENZA, HIGH DOSE SEASONAL 2014 135 complet ed [facility] PNEUMOCOCCAL CONJUGATE PCV 13 2014 133 complet ed [employer] [id number] 08/22 [facility] INFLUENZA, UNSPECIFIED FORMULATION 2013 88 complet ed [facility] INFLUENZA, UNSPECIFIED FORMULATION 2013 88 complet ed [facility] ZOSTER LIVE 2013 121 complet ed [facility] INFLUENZA, UNSPECIFIED FORMULATION 2012 88 complet ed [facility] PNEUMOCOCCAL, UNSPECIFIED FORMULATION 2012 109 complet ed [employer], [id number], [facility] TDAP 2012 115 complet ed [place] [facility] TDAP 2012 115 complet ed [facility] ZOSTER LIVE 2012 121 complet ed [employer] Lot#[id number] 14 [facility] TDAP 2012 115 complet ed [facility] INFLUENZA, UNSPECIFIED FORMULATION 2011 88 complet ed [facility] INFLUENZA, UNSPECIFIED FORMULATION 2010 88 complet ed [facility] INFLUENZA, UNSPECIFIED FORMULATION 2009 88 complet ed [facility] INFLUENZA, UNSPECIFIED FORMULATION 2008 88 complet ed [facility] TD(ADULT) UNSPECIFIED FORMULATION 2007 139 complet ed [facility] INFLUENZA, SPLIT VIRUS, TRIVALENT, PRESERVATIVE 2007 141 complet ed [facility] TD (ADULT), 5 LF TETANUS TOXOID, PRESERVATIVE FREE, ADSORBED 2007 113 complet ed [facility] INFLUENZA (HISTORICAL) 2006 88 complet ed [facility] INFLUENZA (HISTORICAL) 2005 88 complet ed [facility] INFLUENZA, UNSPECIFIED FORMULATION 2004 88 complet ed [facility] INFLUENZA, UNSPECIFIED FORMULATION 2003 88 complet ed [facility] PNEUMOCOCCAL, UNSPECIFIED FORMULATION 2003 109 complet ed [facility] TD(ADULT) UNSPECIFIED FORMULATION 2003 139 complet ed due next year [facility] INFLUENZA, SPLIT VIRUS, TRIVALENT, PRESERVATIVE 2002 141 complet ed [facility] INFLUENZA (HISTORICAL) 2002 88 complet ed pt states he had a Influenza vaccinati on this yr [facility] TD(ADULT) UNSPECIFIED FORMULATION 1994 139 complet ed [facility] Vital Signs Combined list of inpatient and outpatient Vital Signs from Department of [facility] and [facility], ranging from 12 months to all on record, depending upon the facility. Vital Sign Value Date Comments Source SYSTOLIC BLOOD PRESSURE 103 12/31/2023 13:26:57 [facility] DIASTOLIC BLOOD PRESSURE 55 12/31/2023 13:26:57 [facility] PULSE OXIMETRY 95 12/31/2023 13:26:57 [facility] WEIGHT 200.2 12/31/2023 13:26:57 [facility] BMI 27kg/m2 12/31/2023 13:26:57 [facility] PAIN 6 12/31/2023 13:26:57 [facility] TEMPERATURE 98.4 12/31/2023 13:26:57 [facility] PULSE 73 12/31/2023 13:26:57 [facility] RESPIRATION 18 12/31/2023 13:26:57 [facility] Encounters Combined list of: 1) Encounters from Department of Veterans Affairs facilities going back up to thelast 18 months. 2) Encounters from the Department of [facility] facilities going back up to 280 months. Location Location Details Encounter Type Encounter Number Reason For Visit Attending Provider ADM Date DC Date Status Disposition Source [place] [facility] Outpatient Encounter [id number] 11/26 [facility] [place] [facility] Outpatient Encounter [id number] MARY ELLEN MAY 12/10 [facility] [place] [facility] Outpatient Encounter [id number] 12/10 [facility] [place] [facility] Outpatient Encounter [id number] 12/10 [place] [facility] OFFICE O/P EST HI 40-54 MIN [id number] Diagnos is: ICD-10- CM R05.3 Chronic cough<b r/> BISISaskia RIBEIRO H 12/[address] [facility] [place] [facility] Outpatient Encounter [id number] 01/07 [place] [facility] Outpatient Encounter [id number] 02/[address] [facility] Outpatient Encounter [id number] 02/[address] [facility] PRO PHONE CALL 21-30 MIN [id number] Diagnos is: ICD-10- CM Z65.8 Oth problem s related to psychos ocial circums tances< br/> VESNA GRAY 02/[address] [facility] Outpatient Encounter [id number] DEBRA PINTO M 02/18 [facility] SELF CARE MNGMENT TRAINING [id number] Diagnos is: ICD-10- CM J44.9 Chronic obstruc tive pulmona ry disease , unspeci fied
MAGGIE EVANS A 02/[address] [facility] Outpatient Encounter [id number] 03/[address] [facility] Outpatient Encounter [id number] Diagnos is: ICD-10- CM R26.9 Unspeci fied abnorma lities of gait and mobilit y
NANCY HOWARD 03/[address] [facility] Outpatient Encounter [id number] 03/[address] [facility] Outpatient Encounter [id number] 03/23 [place] [facility] [place] [facility] Outpatient Encounter [id number] 03/26 [place] [facility] [place] [facility] TARGETED CASE MANAGEMENT [id number] Chani PERAZA L 05/04 [place] [facility] HC PRO PHONE CALL 5-10 MIN [id number] Diagnos is: ICD-10- CM N18.6 End stage renal disease
FADUMO HERNANDEZ 05/05 [place] [facility] TARGETED CASE MANAGEMENT [id number] Chani PERAZA L 05/05 [place] [facility] TARGETED CASE MANAGEMENT [id number] Chani PERAZA L 05/[address] [facility] CASE MANAGEMENT [id number] JENNIFER THAPA CCA 05/13 [facility] Outpatient Encounter [id number] 05/13 [facility] Outpatient Encounter [id number] GUADALUPE ACOSTA 05/14 [facility] CASE MANAGEMENT [id number] Chani PERAZA L 05/19 [place] [facility] Outpatient Encounter [id number] 05/19 [facility] Outpatient Encounter [id number] Chani PERAZA L 05/[address] [facility] Outpatient Encounter [id number] 05/28 [facility] Outpatient Encounter [id number] 05/28 [facility] Outpatient Encounter [id number] ANSELMO ARMSTRONG A 06/02 [facility] Outpatient Encounter [id number] 06/02 [facility] Outpatient Encounter [id number] DARRELL LOO 06/17 [facility] Outpatient Encounter [id number] 06/18 [facility] Outpatient Encounter [id number] Jared RUVALCABA 06/25 [facility] HEARING AID CHECK BOTH EARS [id number] Diagnos is: ICD-10- CM Z46.1 Encount er for fitting and adjustm ent of hearing aid<br/ > DANELLE MAYFIELD 07/23 [facility] PRO PHONE CALL 5-10 MIN [id number] Diagnos is: ICD-10- CM H04.129 Dry eye syndrom e of unspeci fied lacrima l gland<b r/> FADUMO HERNANDEZ K 08/09 [facility] OFF/OP EST OCTOBER X REQ PHY/QHP [id number] Diagnos is: ICD-10- CM Z01.118 Encntr for exam of ears and hearing w oth abnorma l finding s
DAYANNA CRAWFORD 10/14 [facility] Outpatient Encounter [id number] 10/23 [facility] CONFORMITY EVALUATION [id number] Diagnos is: ICD-10- CM H90.3 Sensori neural hearing loss, bilater al
DAYANNA CRAWFORD 11/[address] [facility] [place] [facility] Outpatient Encounter [id number] 12[facility] [facility] [place] [facility] OFFICE O/P EST HI 40 MIN [id number] Diagnos is: ICD-10- CM M79.646 Pain in unspeci fied finger( s)
[place] MATHEWS H 12/[address] [facility] [place] [facility] Outpatient Encounter [id number] DEBRA PINTO 01/20 [place] [facility] [place] [facility] Outpatient Encounter [id number] 02/[address] [facility] [place] [facility] Outpatient [facility]counter [id number] DEBRA PINTO 02/[address] [facility] [place] [facility] Outpatient Encounter [id number] KALYANI COPELAND H 02/23 [facility] SELF CARE MNGMENT TRAINING [phone] Diagnos is: ICD-10- CM R26.89 Other abnorma lities of gait and mobilit y
RASHEL HAYES 04/07 [facility] [place] [facility] SELF CARE MNGMENT TRAINING [id number] Diagnos is: ICD-10- CM R26.89 Other abnorma lities of gait and mobilit y
RASHEL HAYES 04/28 [facility] [place] IS [facility] SELF CARE MNGMENT TRAINING [id number] Diagnos is: ICD-10- CM R26.89 Other abnorma lities of gait and mobilit y
RASHEL HAYES 05/17 [facility] Social History Combined list of available smoking, tobacco, and 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 Social History Type Response Date Comment Sourc e Tobacco smoking status NHIS VA-TOBACCO QUIT 15 YRS OR MORE 12/31/2023 [facility] History of tobacco use VA-TOBACCO FORMER USER 12/31/2023 [facility] History of tobacco use VA-TOBACCO QUIT 1 5 YRS OR MORE 12/18/2022 [facility] History of tobacco use VA-TOBACCO FORMER USER 11/05/2021 [facility] History of tobacco use VA-TOBACCO QUIT 1 5 YRS OR MORE 07/28/2019 [facility] History of tobacco use VA-TOBACCO QUIT 1 5 YRS OR MORE 12/10/2018 [facility] History of tobacco use VA-TOBACCO FORMER USER 02/25/2018 [facility] History of tobacco use FORMER TOBACCO US ER 7Y OR GREATER 04/10/2015 [facility] History of tobacco use FORMER TOBACCO US ER 7Y OR GREATER 04/27/2014 [facility] History of tobacco use FORMER TOBACCO US ER 7Y OR GREATER 06/18/2006 [facility] Plan of Care List of future care activities from Department of Veterans 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 Additional future care activities may be listed in the Assessment and Plan section. Date/Time Care Activity Care Activity Detail Facili ty 06/23/2024 AMBULATORY - REHAB MEDICINE AMBULATORY - REHAB MEDICINE [facility] Advance Directives List of completed, amended, or rescinded Advance Directives on record at Department of Veterans 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 An actual copy of the Directive is not included. Date Advance Directive Provider Source 05/23/2003 ADVANCE DIRECTIVE [facility]
--- OUTSIDE RECORDS SUMMARY | 2024-05-23 16:32 | XMS_ITS | Encounter Summary ---
Author Name [facility] [place] Address [address] [place] [address] Care Team Providers Care Emergency Communications Officer Name Role Phone RODRÍGUEZ MATHWES Primary Care Provider Unavailabl e Insurance Providers: [...] Blanchard's Name Patient's Relationship to Policy Blanchard [facility] (WNR) MEDICARE ADVANTAGE [facility] (WNR) Jun 08, 2023 [id number] MIKMOLLYRUDDY GranadoARD PATIENT MEDICARE (WNR) MEDICARE (M) RR PART A Feb 06, 2003 RR PART A [id number] SHERYL MACKAY PATIENT MEDICARE (WNR) MEDICARE (M) RR PART B Feb 06, 2003 RR PART B [id number] MIKMOLLYSHERYL Granado PATIENT MEDICARE PART D (WNR) MEDICARE (M) PART D Jun 08, 2022 PART D [id number] ALANNAHTODDRUDDY GranadoARD PATIENT [employer] MEDICARE SECONDARY (NO B EXC) UPREH S Jun 08, 2009 [id number] SHERYL MACKAY PATIENT Selected Encounter This section includes the information on record at [place] for the Encounter. Date/Time Encounter Type Encounter Description Reason Pro vider Source May 28, 2023 02:52 PM Outpatient Encounter COMMUNITY CARE CONSULT IHE [...] 20 appointments. The data comes from all [place] treatment facilities. Appointment Date/Time Appointment Type Appointme nt Facility Name Jul 23, 2023 01:00 PM AMBULATORY - MEDICINE [facility] October 15, 2023 02:30 PM AMBULATORY - SURGERY [facility] Nov 17, 2023 01:30 PM AMBULATORY - SURGERY [facility] Advance Directives: All historical and current [...] May 23, 2003 ADVANCE DIRECTIVE [facility] Encounter Notes: All associated encounter notes This section contains the clinical notes associated to the Encounter. Date/Time Encounter Note(s) Provider Source May 28, 2023 02:52 PM NONVA CONSULT: LOCAL TITLE: COMMUNITY CARE-PATIENT LETTER STANDARD TITLE: NONVA CONSULT DATE OF NOTE: MAY 28, 2023@14:52 ENTRY DATE: MAY 28, 2023@14:52:35 AUTHOR: DIANA MILLS EXP COSIGNER: URGENCY: STATUS: COMPLETED May 28, 2023 Sheryl Mackay [address] [place], [place] [address] Consult Number [id number] Dear: Sheryl Mackay Your VA provider has referred you for Non-VA Care (Fee Basis) in the community. Your referral for medical care has been authorized with the Non-VA provider listed below. [facility] [address], [place]. [id number] An appointment has been scheduled for you on date/time: 06/29/2023 at 8:00am If you are unable to keep this appointment or the appointment is no longer needed, please call: [phone]. This authorization is limited to VA payment for service(s). If continued or additional services are needed, a new authorization from the VA is required. IMPORTANT INFORMATION: - Any medication prescribed by a Non VA Provider must be filled at a VA Pharmacy. If you decide to fill and pay for this prescription at a non-VA Pharmacy, the VA will not reimburse you unless previously approved by the VA. - Any Flight Data Technician or Appliance (example: TENS unit, walker, home oxygen, commode, handrails, etc.) ordered by a Non VA Provider will be supplied by the VA. A prescription must be submitted to the VA in order for the equipment to be issued and provided by the VA. - If you are required to pay a VA co-payment, you will be billed a VA co-payment for each authorized visit attended. You are NOT REQUIRED to make co-payments to a Non VA Provider. Thank you for the opportunity to serve you. [facility] Non-VA Care. DIANA MILLS [facility]
--- OUTSIDE RECORDS SUMMARY | 2024-05-23 16:34 | XMS_ITS | Encounter Summary ---
Author Name [facility] [place] Address [address] [place] [address] Care Team Providers Care Commercial Journeyman Electrician Name Role Phone RODRÍGUEZ MATHEWS Primary Care [...] Blanchard's Name Patient's Relationship to Policy Blanchard [facility] (WNR) MEDICARE ADVANTAGE [facility] (WNR) Jun 08, 2023 [id number] SHERYL SERRANO PATIENT MEDICARE (WNR) MEDICARE (M) RR PART A Feb 06, 2003 RR PART A [id number] JANETTEVannesa SHERYL PATIENT MEDICARE (WNR) MEDICARE (M) RR PART B Feb 06, 2003 RR PART B [id number] ZACH SHERYL PATIENT MEDICARE PART D (WNR) MEDICARE (M) PART D Jun 08, 2022 PART D [id number] SHERYL SERRANO PATIENT [employer] MEDICARE SECONDARY (NO B EXC) UPREH S Jun 08, 2009 [id number] SHERYL SERRANO PATIENT Selected Encounter This section includes the information on record at [place] for the Encounter. Date/Time Encounter Type Encounter Description Reason Provider Source Jul 23, 2023 01:00 PM HEARING AID CHECK BOTH EARS AUDIOLOGY ICD-10-CM Z46.1 Encounter for fitting and adjustment of hearing aid TIFFANI MAYFIELD Encounter Template Text not used by [place] Assessments - Encounter Diagnoses This section includes the primary and secondary diagnoses documented for the Encounter. Date/Time Primary/Secondary Diagnosis Diagnosis Name Provider Source Jul 23, 2023 01:55 PM PRIMARY Encounter for fitting and adjustment of hearing aid [facility] Plan of Treatment: Future Appointments (+ 6 months) and Future Tests (+/- 45 days) The Plan of Treatment section includes future care activities for the patient from all [place] treatmentfacilities. This section includes future appointments and future orders which are active, pending or scheduled. Future Appointments This section includes appointments that were scheduled to occur 6 months from the date of the Encounter, up to a maximum of 20 appointments. The data comes from all [place] treatment facilities. Appointment Date/Time Appointment Type Appointme nt Facility Name October 15, 2023 02:30 PM AMBULATORY - SURGERY [facility] Nov 17, 2023 01:30 PM AMBULATORY - SURGERY [facility] Dec 31, 2023 01:30 PM [facility] Advance Directives: All historical and current Section Date Range: From patient's date of to the date document was created. This section includes ALL of a patient's completed or amended [place] Advance and Rescinded Directives. The entries below indicate that a directive exists for the patient, but an actual copy is not included with this document. The data comes from all [place] facilities. Date Advance Directives Provider Source May 23, 2003 ADVANCE DIRECTIVE [facility] Encounter Notes: All associated encounter notes This section contains the clinical notes associated to the Encounter. Date/Time Encounter Note(s) Provider Source Jul 23, 2023 01:44 PM AUDIOLOGY NOTE: LOCAL TITLE: AUDIOLOGY REPAIR NOTE STANDARD TITLE: AUDIOLOGY NOTE DATE OF NOTE: JUL 23, 2023@13:44 ENTRY DATE: JUL 23, 2023@13:44:56 AUTHOR: ELKINS,CHERYL EXP COSIGNER: TIFFANI MAYFIELD URGENCY: STATUS: COMPLETED AUDIOLOGY REPAIR NOTE Has ADDENDA SHERYL SERRANO was seen for follow-up appointment: -[place] presents self to clinic with his , states HAs are working but pt. does not use them much at home. 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 -[place] qualifies for new Hearing Exam. Pt. states will schedule appt with his home [facility] in [place]. as soon as he returns home. Pt. satisfied, verbalized understanding. SONOVA PHONAK AUDEO M90-R CHARLES R [id number] SONOVA PHONAK AUDEO M90-R CHARLES L [id number] PLAN: [place] should contact the clinic as needed with hearing or hearing aid concerns [place] should monitor hearing status with a re-evaluation every 2 years, or sooner if a change in hearing is noted Other/Additional: Will schedule Hearing Exam with Home [facility]. /daljit ELKINS Health Coil Cutter Signed: 07/23/2023 13:55 /daljit MAYFIELD Industrial Eng Cosigned: 07/24/2023 08:53 07/24/2023 ADDENDUM STATUS: COMPLETED I concur with tech's/GH/RR note as written dated 07/23/23 and for Cleaning/HAC/ Repair provided to one or both H/Aid/ [facility], sent to vendor for REPAIR OR L/D Repl. I also agree with CPT codes submitted for this encounter/treatment plan for RTC/follow up Pt care at HOME [facility]. /daljit MAYFIELD Industrial Eng Signed: 07/24/2023 08:55 [facility]
--- OUTSIDE RECORDS SUMMARY | 2024-05-23 16:34 | XMS_ITS | Encounter Summary ---
Author Name [facility] [place] Address [address], [place] [address] Care Team Providers Care Customer Service Associate Name Role Phone RODRÍGUEZ MATHEWS Primary Care [...] Blanchard's Name Patient's Relationship to Policy [facility] (WNR) MEDICARE ADVANTAGE [facility] (WNR) Jun 08, 2023 [id number] MIKMOLLYRUDDY GranadoARD PATIENT MEDICARE (WNR) MEDICARE (M) RR PART A Feb 06, 2003 RR PART A [id number] SHERYL SERRANO PATIENT MEDICARE (WNR) MEDICARE (M) RR PART B Feb 06, 2003 RR PART B [id number] RUDDY SERRANOARD PATIENT MEDICARE PART D (WNR) MEDICARE (M) PART D Jun 08, 2022 PART D [id number] MIKMOLLYRUDDY GranadoARD PATIENT [employer] MEDICARE SECONDARY (NO B EXC) UPREH S Jun 08, 2009 [id number] SHERYL SERRANO PATIENT Selected Encounter This section includes the information on record at [place] for the Encounter. Date/Time Encounter Type Encounter Description Reason Provider Source October 15, 2023 02:30 PM OFF/OP EST OCTOBER X REQ PHY/QHP AUDIOLOGY ICD-10-CM Z01.118 Encntr for exam of ears and hearing w oth abnormal findings PARAMJoelEUNICE TTA K IHE Encounter Template Text not used by CT Assessments - Encounter Diagnoses This section includes the primary and secondary diagnoses documented for the Encounter. Date/Time Primary/Secondary Diagnosis Diagnosis Name Provider Source October 15, 2023 03:26 PM PRIMARY Encntr for exam of ears and hearing w oth abnormal findings ANNA CRAWFORD ITTA K [facility] October 15, 2023 03:26 PM SECONDARY Encounter for fitting and adjustment of hearing aid ANNA CRAWFORD ITTA K [facility] October 15, 2023 03:26 PM SECONDARY Impacted cerumen, bilateral RUHR,HERNESTO A [facility] October 15, 2023 03:26 PM SECONDARY Sensorineural hearing loss, bilateral PARAMG,BR ITTA K [facility] October 15, 2023 03:26 PM SECONDARY Tinnitus, bilateral PARAMG,BR ITTA K [facility] Plan of Treatment: Future Appointments (+ 6 months) and Future Tests (+/- 45 days) The Plan of Treatment section includes future care activities for the [facility] This section includes future appointments and future orders which are active, pending or scheduled. Future Appointments This section includes appointments that were scheduled to occur 6 months from the date of the Encounter, up to a maximum of 20 appointments. The data comes from all [place] treatment facilities. Appointment Date/Time Appointment Type Appointme nt Facility Name Nov 17, 2023 01:30 PM AMBULATORY - SURGERY [facility] Dec 31, 2023 01:30 PM AMBULATORY - MEDICINE [facility] Feb 14, 2024 07:00 AM AMBULATORY - NONE [facility] Apr 07, 2024 01:00 PM AMBULATORY - REHAB MEDICIN E [facility] Social History: Smoking Status (Most current) and Tobacco Use (All prior to encounter date) This section includes the most current, and the historical, smoking and tobacco- related health factors from the [place] facility where the Encounter took place. Current Smoking Status This section includes the most current smoking, or tobacco-related health factor, from the [place] facility where the Encounter took place. Date/Time Current Smoking Status Comment Facil ity Dec 18, 2022 01:00 PM VA-TOBACCO FORMER USER [facility] Tobacco Use History This section includes a history of the smoking, or tobacco-related health factors, that were collected on or before the date of the Encounter. The data comes from the [place] facility where the Encounter took place. Date/Time Smoking Status/Tobacco Use Comment F acility Dec 18, 2022 01:00 PM VA-TOBACCO QUIT 15 YRS OR MORE [facility] November 05, 2021 10:00 AM VA-TOBACCO FORMER USER [facility] November 05, 2021 10:00 AM VA-TOBACCO QUIT 15 YRS OR MORE [facility] Dec 10, 2018 12:57 PM VA-TOBACCO FORMER USER [facility] Dec 10, 2018 12:57 PM VA-TOBACCO QUIT 15 YRS OR MORE [facility] Feb 25, 2018 12:23 PM VA-TOBACCO FORMER USER [facility] Feb 25, 2018 12:23 PM VA-TOBACCO QUIT 15 YRS OR MORE [facility] Apr 10, 2015 02:55 PM FORMER TOBACCO USER 7Y OR GREATE R [facility] Apr 27, 2014 10:17 AM FORMER TOBACCO USER 7Y OR GREATE R [facility] Jun 18, 2006 07:23 AM FORMER TOBACCO USER 7Y OR GREATE R [facility] Advance Directives: All [...] May 23, 2003 ADVANCE DIRECTIVE [facility] Encounter Notes: All associated encounter notes This section contains the clinical notes associated to the Encounter. Date/Time Encounter Note(s) Provider Source October 15, 2023 02:30 PM AUDIOLOGY NOTE: LOCAL TITLE: AUDIOLOGY CLINIC NURSING NOTE STANDARD TITLE: AUDIOLOGY NOTE DATE OF NOTE: OCTOBER 15, 2023@14:30 ENTRY DATE: OCTOBER 15, 2023@15:33:22 AUTHOR: HERNESTO RUTLEDGE COSIGNER: URGENCY: STATUS: COMPLETED Reason for visit: [...] PRACTICAL NURSE Signed: 10/15/2023 15:35 HERNESTO RUTLEDGE [facility] October 15, 2023 12:04 PM AUDIOLOGY NOTE: LOCAL TITLE: AUDIOLOGY CLINIC NOTE STANDARD TITLE: AUDIOLOGY NOTE DATE OF NOTE: OCTOBER 15, 2023@12:04 ENTRY DATE: OCTOBER 15, 2023@12:04:40 AUTHOR: DAYANNA CRAWFORD COSIGNER: URGENCY: STATUS: COMPLETED DIAGNOSIS: Encounter for examination of ears and hearing Sensorineural loss, bilateral Tinnitus, bilateral REASON FOR VISIT: HEARING EVALUATION AND HEARING AID SELECTION, 60 MINUTES: was seen in the clinic today for a comprehensive audiologic evaluation, hearing aid selection, hearing aid service, and counseling. LOCATION OF VISIT (ROOM NUMBER): [facility] The was last seen in this clinic on 09/25/2020. The is Service Connected for Hearing Loss . [place] was accompanied by his , Lashay. The currently wears the following hearing aids: Hearing Aids (right/left): 03/15/20 SONOVA PHONAK AUDEO M90-R CHARLES R [id number] 04/05/23 [place] 03/15/20 SONOVA PHONAK AUDEO M90-R CHARLES L [id number] 04/05/23 618 [place] skeleton molds HISTORY: [place] seen with a history of sensorineural hearing loss and tinnitus. He reported a possible decrease in hearing. 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 He stated he has a hard time understanding television. Pursuant to [facility] 1034-D section 5-B-1, Kaveh is eligible for [...] headphones Reliability: Good RIGHT EAR (Hz) 250 [phone] 1500 2000 3000 4000 6000 8000 Air: See Audiogram Display under Tools / AUDIOLOGY / ROES or see NILAM Database Bone: See Audiogram Display under Tools / AUDIOLOGY / ROES or see NILAM Database LEFT EAR (Hz) 250 247 454 2768 1500 2000 3000 4000 6000 8000 Air: See Audiogram Display under Tools / AUDIOLOGY / ROES or see NILAM Database Bone: See Audiogram Display under Tools / AUDIOLOGY / ROES or see NILAM Database - All thresholds are in dB HL * = Masked Threshold SRT: Spondees Right: 65 dB HL Left: 60 dB HL Pure tone results were consistent with speech skills instructor thresholds. WORD RECOGNITION: Recorded / -22 word list RIGHT EAR: 48% Level: 90* dB LEFT EAR: 36% Level: 90* dB SUMMARY: Hearing is mostly stable as compared to the last examination. RIGHT EAR: Moderate sloping to profound sensorineural hearing loss with poor word recognition. LEFT EAR: Moderate sloping to profound sensorineural hearing loss with poor word recognition. DISCUSSION: - Results were reviewed with the patient. - [place] continues to be a good candidate for hearing aid use. - [place] has hearing loss that interferes with or restricts communication to the extent that it affects their active participation in the provision of health care services as determined by the wind turbine installer. AMPLIFICATION: - The veterans current hearing aids were cleaned and checked. Changed wax traps and vacuumed out microphone ports. Reprogrammed hearing aids to match todays Audiogram. reported improvement in audibility following adjustments. - Different styles/technologies were reviewed with consideration given to veterans listening situations and lifestyle needs. [place] is interested in pursuing similar hearing aids to current devices. Will get him a new TV streamer. - counseled using a standard curriculum on expectations for new hearing aids, VA procedures and trial period. - Will use impressions on file. - Hearing aids ordered: Phonak Centrifyeo L90-RL CHARLES hearing aids (silver starr, Size x receivers, skeleton cShells, AOVs, Wax traps, removal strings) were selected and ordered today. - Accessories ordered: TV Connector PLAN: - [place] will be scheduled for a 60-minute hearing [...] AGREEMENT WITH THIS PLAN. /katey/ DAYANNA CRAWFORD CUSTOMER RESPONSE REPRESENTATIVE Signed: 10/15/2023 15:40 DAYANNA CRAWFORD [facility]
--- OUTSIDE RECORDS SUMMARY | 2024-05-23 16:35 | XMS_ITS | Encounter Summary ---
Author Name [facility] Organization [facility] Address [address] [place] [address] Care Team Providers Care Body Liner Name Role Phone RODRÍGUEZ MATHEWS Primary Care [...] Name Patient's Relationship to Policy [facility] (WNR) MEDICARE ADVANTAGE [facility] (WNR) Jun 08, 2023 [id number] SHERYL SERRANO PATIENT MEDICARE (WNR) MEDICARE (M) RR PART A Feb 06, 2003 RR PART A [id number] JANETTEVannesa SHERYL PATIENT MEDICARE (WNR) MEDICARE (M) RR PART B Feb 06, 2003 RR PART B [id number] SHERYL SERRANO PATIENT MEDICARE PART D (WNR) MEDICARE (M) PART D Jun 08, 2022 PART D [id number] SHERYL SERRANO PATIENT [employer] MEDIC[employer] SECONDARY (NO B EXC) UPREH S Jun 08, 2009 [id number] SHERYL SERRANO PATIENT Selected Encounter This section includes the information on record at OR for the Encounter. Date/Time Encounter Type Encounter Description Reason Pro vider Source Feb 11, 2024 11:30 AM Outpatient Encounter TELEPHONE TRIAGE IHE Encounter Template Text not used by OR Plan of Treatment: Future Appointments (+ 6 months) and Future Tests (+/- 45 days) The Plan of Treatment section includes [facility] care activities [facility] This section includes future appointments and future orders which are active, pending or scheduled. Future Appointments This section includes appointments that were scheduled to occur 6 months from the date of the Encounter, up to a maximum of 20 appointments. The data comes from all OR treatment facilities. Appointment Date/Time Appointment Type Appointme nt Facility Name Feb 14, 2024 07:00 AM [facility] Apr 07, 2024 01:00 PM [facility] Apr 28, 2024 02:30 PM [facility] May 17, 2024 02:30 PM [facility]ORY - [facility] Jun 23, 2024 02:30 PM [facility] Social History: Smoking Status (Most current) and Tobacco Use (All prior to encounter date) This section includes the most current, and the historical, smoking and tobacco- related health factors from the OR facility where the Encounter took place. Current Smoking Status This section includes the most current smoking, or tobacco-related health factor, from the OR facility where the Encounter took place. Date/Time Current Smoking Status Comment Billie ity Dec 31, 2023 01:30 PM VA-TOBACCO FORMER USER [facility] Tobacco Use History This section includes a history of the smoking, or tobacco-related health factors, that were collected on or before the date of the Encounter. The data comes from the OR facility where the Encounter took place. Date/Time Smoking Status/Tobacco Use Comment F acility Dec 31, 2023 01:30 PM VA-TOBACCO QUIT [address] [facility] Dec 18, 2022 01:00 PM VA-TOBACCO FORMER USER [facility] Dec 18, 2022 01:00 PM VA-TOBACCO QUIT [address] [facility] November 05, 2021 10:00 AM VA-TOBACCO FORMER USER [facility] November 05, 2021 10:00 AM OR-TOBACCO QUIT [address] [facility] Dec 10, 2018 12:57 PM VA-TOBACCO FORMER USER [facility] Dec 10, 2018 12:57 PM VA-TOBACCO QUIT [address] [facility] Feb 25, 2018 12:23 PM VA-TOBACCO FORMER USER [facility] Feb 25, 2018 12:23 PM VA-TOBACCO QUIT [address] [facility] Apr 10, 2015 02:55 PM FORMER TOBACCO USER 7Y OR GRE[address] [facility] Apr 27, 2014 10:17 AM FORMER TOBACCO USER 7Y OR GRE[address] [facility] Jun 18, 2006 07:23 AM FORMER TOBACCO USER 7Y OR [facility] [facility] Advance Directives: All historical and current Section Date Range: From patient's date of to the date document was created. This section includes ALL of a patient's completed or amended OR Advance and Rescinded Directives. The entries below indicate that a directive exists for the patient, but an actual copy is not included with this document. The data comes from all OR facilities. Date Advance Directives Provider Source May 23, 2003 ADVANCE DIRECTIVE [facility] Encounter Notes: All associated encounter notes This section contains the clinical notes associated to the Encounter. Date/Time Encounter Note(s) Provider Source Feb 11, 2024 11:31 AM ADMINISTRATIVE NOT E: LOCAL TITLE: CCC: SCHEDULING ADMINISTRATION STANDARD TITLE: ADMINISTRATIVE NOTE DATE OF NOTE: FEB 11, 2024@11:31 ENTRY DATE: FEB 11, 2024@11:31:04 AUTHOR: JANAE IRWIN COSIGNER: URGENCY: STATUS: COMPLETED CCC: SCHEDULING ADMINISTRATION Has [facility] Primary Care Call Center Primary Care Provider Call. Please contact at the following number: [phone] Other: is requesting a referral to PT for a special assessment for use of a device called Walkascins, lower limbs sensory prosthesis. Please call to discuss. This note was created by a 3 [facility] NUBIA/YESENIA. Please do not alert this song writer by adding as a signer for future communications. Alerts are not monitored by this user, please reach out to [facility] Leadership instead if indicated. /katey/ JANAE IRWNI MSA,[address] Signed: 02/11/2024 11:34 Receipt Acknowledged By: 02/12/2024 10:48 /katey/ JAMISON HERNANDEZ RN REGISTERED NURSE 02/12/2024 ADDENDUM STATUS: COMPLETED Client Service Consultant placed CC for PT eval/treat and held for provider sig. /katey/ JAMISON HERNANDEZ RN REGISTERED NURSE Signed: 02/12/2024 11:[address] [facility]
--- NOTE | 2024-05-23 16:42 | ED_ITS ---
HPI - SOB/Dyspnea General Chief Complaint: Shortness of Breath/Dyspnea <Bjorn Billy DO - Last Filed: 05/24/24 21:00> Stated Complaint: Pneumonia <Bjorn Billy DO - Last Filed: 05/24/24 21:00> Time Seen by Provider: 05/23/24 16:11 <Bjorn Billy DO - Last Filed: 05/24/24 21:00> Source: patient and family <Bjorn Billy DO - Last Filed: 05/24/24 21:00> Mode of arrival: ambulatory <Bjorn Billy DO - Last Filed: 05/24/24 21:00> Limitations: no limitations <Bjorn Billy - Last Filed: 05/24/24 21:00> History of Present Illness HPI Narrative: Patient is an 84-year-old male presenting to the emergency department with his and home caregiver. They state they came here from dialysis for concerned he has pneumonia. Patient has been getting up and down on the bed for several months but was worse last night. He told his dialysis nurse today that he is feeling short of breath than he was requiring oxygen what getting dialysis. 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 Inhalers do not seem to help much today. He states he has been feeling more short of breath at rest but currently does not feel short of breath sitting up in bed. The nurse at his dialysis clinic this into his lungs and told him t hat he is fluid in all of his lobes. Denies any chest pain. Does not have swollen legs. Does have a history of bypass surgery in 2019. He is also diabetic. Family is not aware of any sick contacts. Patient denies chest pain, weakness, numbness, headache, lightheadedness, dizziness. No history of blood clots. He has been dealing with difficulty sleeping now for several months and they have seen his primary care provider about it and they think it is because he takes too many naps during the days so is not tired enough at night. <Bjorn Billy DO - Last Filed: 05/24/24 21:00> Related Data Home Medications: Home Medications ?Medication ?Instructions ?Recorded ?Confirmed acetaminophen 650 mg 650 mg PO Q8H PRN 12/27/22 05/24/24 tablet,extended release (Tylenol Arthritis Pain) aspirin 81 mg capsule 81 mg PO DAILY 12/27/22 05/23/24 coenzyme Q10 100 mg capsule (Co 100 mg PO DAILY 12/27/22 05/24/24 Q-10) guaifenesin 100 mg/5 mL oral liquid 100 mg PO Q4H PRN coughing 12/27/22 05/24/24 insulin aspart U-100 100 unit/mL 5 unit subcut TIDWM 12/27/22 05/23/24 (3 mL) subcutaneous pen (Novolog FlexPen U-100 Insulin aspart) loratadine 10 mg tablet (Claritin) 10 mg PO DAILY 12/27/22 05/24/24 montelukast 10 mg tablet 10 mg PO HS 12/27/22 05/24/24 (Singulair) nitroglycerin 0.4 mg sublingual 0.4 mg sublingual Q5M PRN 12/27/22 05/24/24 tablet (Nitrostat) sennosides 8.6 mg capsule (senna) 8.6 - 17.2 mg PO BID 12/27/22 05/24/24 B complex 11-folic acid 1 mg-C 100 1 tab PO BID 10/06/23 05/24/24 mg-biotin 300 mcg-zinc 50 mg tablet (Dialyvite) albuterol sulfate 90 mcg/actuation 2 inh inhalation Q4H PRN 10/06/23 05/24/24 aerosol inhaler (Ventolin HFA) cholecalciferol (vitamin D3) 50 50 mcg PO DAILY 10/06/23 05/24/24 mcg (2,000 unit) capsule cyclosporine 0.05 % eye drops in a 1 drp ophthalmic (eye) Q12H 10/06/23 05/24/24 dropperette (Restasis) fluticasone propionate 50 1 spray intranasal DAILY PRN 10/06/23 05/23/24 mcg/actuation nasal spray,suspension (24 Hour Allergy Relief) insulin glargine 100 unit/mL (3 18 unit subcut HS 10/06/23 05/24/24 mL) subcutaneous pen (Lantus Solostar U-100 Insulin) krill 1,000 mg-omega-3 230 mg-dha 1 cap PO DAILY 10/06/23 05/24/24 60 jo-oar-fwljjkyzj-astaxan capsule (MegaRed [place]-3 Krill Oil) pantoprazole 40 mg tablet,delayed 40 mg PO DAILY 10/06/23 05/24/24 release pravastatin 80 mg tablet 80 mg PO HS 10/06/23 05/24/24 vitamin E 268 mg (400 unit) capsule 268 mg PO DAILY 10/06/23 05/24/24 clopidogrel 75 mg tablet 75 mg PO DAILY 05/24/24 05/24/24 diphenhydramine HCl 25 mg capsule 25 mg PO Q4H PRN 05/24/24 05/24/24 (Aler-Cap) fluticasone 100 mcg-salmeterol 50 1 inh inhalation BID 05/24/24 05/24/24 mcg/dose blistr powdr for inhalation (Wixela Inhub) hydrocortisone 2.5 % topical cream 1 applic topical BID PRN 05/24/24 05/24/24 levothyroxine 175 mcg capsule 175 mcg PO DAILY 05/24/24 05/24/24 magnesium hydroxide 400 mg/5 mL 30 ml PO DAILY PRN 05/24/24 05/24/24 oral suspension (Dulcolax (magnesium hydroxide)) methyl salicylate 15 %-menthol 10 1 applic topical TID PRN 05/24/24 05/24/24 % topical cream (Analgesic [place] (m.salic-menthol)) tiotropium bromide 18 mcg capsule 1 cap inhalation DAILY 05/24/24 05/24/24 with inhalation device (Spiriva with HandiHaler) <Bjorn Billy, DO - Last Filed: 05/24/24 21:00> Allergies/Adverse Reactions: Allergies Allergy/AdvReac Type Severity Reaction Status Date / Time doxycycline Allergy Unknown Verified 05/23/24 16:10 atorvastatin (From Lipitor) Allergy Verified 05/23/24 16:10 hydrocodone Allergy Verified 10/06/23 07:34 lisinopril Allergy Verified 05/23/24 16:10 metoclopramide (From Reglan) Allergy Verified 05/23/24 16:10 omeprazole Allergy Verified 05/23/24 16:10 <Bjorn Billy DO - Last Filed: 05/24/24 21:00> Review of Systems Status of ROS: Reports: 10 or more systems reviewed and unremarkable except as noted in History and below <Bjorn Billy DO - Last Filed: 05/24/24 21:00> [facility] Medical History: Medical History Frailty syndrome in geriatric patient ?R54 - Age-related physical debility (ICD-10) Coronary artery disease ?I25.10 - Atherosclerotic heart disease of kaibab coronary artery without angina pectoris (ICD-10) Recurrent UTI ?N39.0 - Urinary tract infection, site not specified (ICD-10) Secondary hyperparathyroidism (of renal origin) ?N25.81 - Secondary hyperparathyroidism of renal origin (ICD-10) Pneumonia due to COVID-19 virus ?U07.1 - COVID-19 (ICD-10) ?J12.82 - Pneumonia due to coronavirus disease 2019 (ICD-10) Severe obesity ?E66.01 - Morbid (severe) obesity due to excess calories (ICD-10) Mobitz type 1 second degree AV block ?I44.1 - Atrioventricular block, second degree (ICD-10) Calculus of gallbladder without cholecystitis ?K80.20 - Calculus of gallbladder without cholecystitis without obstruction (ICD-10) Anemia of chronic renal failure ?N18.9 - Chronic kidney disease, unspecified (ICD-10) ?D63.1 - Anemia in chronic kidney disease (ICD-10) Allergic rhinitis ?J30.9 - Allergic rhinitis, unspecified (ICD-10) DVT (deep venous thrombosis) ?I82.409 - Acute embolism and thrombosis of unspecified deep veins of unspecified lower extremity (ICD-10) Hypothyroidism ?E03.9 - Hypothyroidism, unspecified (ICD-10) Pulmonary emphysema ?J43.9 - Emphysema, unspecified (ICD-10) Obstructive sleep apnea ?G47.33 - Obstructive sleep apnea (adult) (pediatric) (ICD-10) Colon polyp ?K63.5 - Polyp of colon (ICD-10) Detached retina, left ?H33.22 - Serous retinal detachment, left eye (ICD-10) GERD with esophagitis ?K21.00 - Gastro-esophageal reflux disease with esophagitis, without bleeding (ICD-10) Hypertension ?I10 - Essential (primary) hypertension (ICD-10) Diabetic foot ulcer ?E11.621 - Type 2 diabetes mellitus with foot ulcer (ICD-10) ?L97.509 - Non-pressure chronic ulcer of other part of unspecified foot with unspecified severity (ICD-10) Charcot foot due to diabetes mellitus ?E11.610 - Type 2 diabetes mellitus with diabetic neuropathic arthropathy (ICD-10) Pulmonary asbestosis ?J61 - Pneumoconiosis due to asbestos and other mineral fibers (ICD-10) Myocardial infarction ?I21.9 - Acute myocardial infarction, unspecified (ICD-10) Hypercholesterolemia ?E78.00 - Pure hypercholesterolemia, unspecified (ICD-10) End stage renal disease on dialysis ?N18.6 - End stage renal disease (ICD-10) ?Z99.2 - Dependence on renal dialysis (ICD-10) DM (diabetes mellitus), type 2 ?E11.9 - Type 2 diabetes mellitus without complications (ICD-10) COPD (chronic obstructive pulmonary disease) ?J44.9 - Chronic obstructive pulmonary disease, unspecified (ICD-10) <Bjorn Billy DO - Last Filed: 05/24/24 21:00> Surgical History: Surgical History S/P ORIF (open reduction internal fixation) fracture ?Z98.890 - Other specified postprocedural states (ICD-10) ?Z87.81 - Personal history of (healed) traumatic fracture (ICD-10) S/P CABG x 4 ?Z95.1 - Presence of aortocoronary bypass graft (ICD-10) <Bjorn Billy DO - Last Filed: 05/24/24 21:00> Family History: Family History Brother Leukemia Mother Oral cancer Father Alzheimers disease <Bjorn Billy DO - Last Filed: 05/24/24 21:00> Social History: Social History Narrative: 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 What is your current living situation?: I presently have a place to live Problems where you live: no known problems Problems where you live details: n/a In the past 12 months, utilities in danger of being shut off: no In the past 12 mos, have been you worried that your food would run out before you had money to buy more?: never true In the past 12 mos, the food you bought just didn't last and you didn't have money to buy more?: never true Smoking Status: Former smoker Do you use any of these nicotine containing products: None Second hand tobacco smoke exposure: No How often do you have a drink containing alcohol: 2-4 times a month How often do you have six or more drinks on one occasion: Never AUDIT-C Alcohol total score: 2 Non-prescribed substance use: denies use How often does anyone, including family, friends and others, physically hurt you : never How often does anyone, including family, friends and others, insult or talk down to you: never How often does anyone, including family, friends and others, threaten you with harm: never How often does anyone, including family, friends and others, scream or curse at you: never service: No <Bjorn Billy DO - Last Filed: 05/24/24 21:00> Exam Narrative: Exam Narrative: Const: Well-nourished, Well-developed, in mild distress Eyes: PERRL, no conjunctival injection, and symmetrical lids HENT: Atraumatic external nose and ears. Moist mucous membranes. Neck: Symmetric, trachea midline, No thyromegaly. CVS: RRR, No murmurs or gallops. Peripheral pulses 2+ and equal in all extremities, no peripheral edema RESP: Unlabored respiratory effort. Clear to auscultation bilaterally. Does have diminished lung sounds throughout GI: Nontender/Nondistended, No rebound or guarding. MSK:Extremities w/o deformity, Normal Active ROM Skin: Warm, Dry. No rashes or lesions. Neuro: Normal Muscle tone, No focal neurological deficits. Psych: Awake, Alert, & Oriented x3. Appropriate mood and affect. <Bjorn Billy DO - Last Filed: 05/24/24 21:00> Const: Vital Signs, click to edit/add: Vital Signs - 24 hr 05/23/24 21:00 05/23/24 21:02 05/23/24 21:30 Pulse Rate 69 70 70 Respiratory Rate Blood Pressure 141/60 H Blood Pressure [Ri ght Upper Arm] Pulse Oximetry 92 89 90 Oxygen Delivery Me thod Oxygen Flow Rate 05/23/24 21:32 05/23/24 22:00 05/23/24 22:02 Pulse Rate 70 68 70 Respiratory Rate Blood Pressure 139/60 137/56 L Blood Pressure [Ri ght Upper Arm] Pulse Oximetry 89 92 90 Oxygen Delivery Me thod Oxygen Flow Rate 05/23/24 22:15 05/23/24 22:30 05/23/24 22:32 Pulse Rate 69 70 Respiratory Rate Blood Pressure 147/70 H Blood Pressure [Ri ght Upper Arm] Pulse Oximetry 97 95 93 Oxygen Delivery Me thod Nasal Cannula Nasal Cannula Oxygen Flow Rate 0.5 05/23/24 22:33 05/23/24 22:55 05/23/24 23:00 Pulse Rate 70 71 Respiratory Rate Blood Pressure Blood Pressure [Ri ght Upper Arm] Pulse Oximetry 99 98 97 Oxygen Delivery Me thod Nasal Cannula Oxygen Flow Rate 0.5 05/23/24 23:05 05/23/24 23:18 05/23/24 23:30 Pulse Rate 79 69 70 Respiratory Rate 18 Blood Pressure 125/105 H Blood Pressure [Ri ght Upper Arm] Pulse Oximetry 98 94 95 Oxygen Delivery Me thod Nasal Cannula Oxygen Flow Rate 2 05/23/24 23:32 05/24/24 00:00 05/24/24 00:02 Pulse Rate 70 71 72 Respiratory Rate Blood Pressure 122/49 L 83/44 L Blood Pressure [Ri ght Upper Arm] Pulse Oximetry 97 94 91 Oxygen Delivery Me thod Oxygen Flow Rate 05/24/24 00:02 05/24/24 00:02 05/24/24 00:09 Pulse Rate 72 72 70 Respiratory Rate Blood Pressure 83/44 L 83/44 L 96/84 Blood Pressure [Ri ght Upper Arm] Pulse Oximetry 91 91 91 Oxygen Delivery Me thod Oxygen Flow Rate 05/24/24 00:30 05/24/24 00:32 05/24/24 01:00 Pulse Rate 70 70 69 Respiratory Rate Blood Pressure 98/49 L Blood Pressure [Ri ght Upper Arm] Pulse Oximetry 91 94 95 Oxygen Delivery Me thod Oxygen Flow Rate 05/24/24 01:02 05/24/24 01:19 05/24/24 01:30 Pulse Rate 73 71 70 Respiratory Rate Blood Pressure 82/36 L 117/41 L Blood Pressure [Ri ght Upper Arm] Pulse Oximetry 81 L 86 L 97 Oxygen Delivery Me thod Oxygen Flow Rate 05/24/24 01:32 05/24/24 02:00 05/24/24 02:02 Pulse Rate 70 70 Respiratory Rate Blood Pressure 96/37 L Blood Pressure [Ri ght Upper Arm] Pulse Oximetry 87 L 94 94 Oxygen Delivery Me thod Oxygen Flow Rate 05/24/24 02:30 05/24/24 02:32 05/24/24 03:00 Pulse Rate Respiratory Rate Blood Pressure Blood Pressure [Ri ght Upper Arm] Pulse Oximetry 95 91 90 Oxygen Delivery Me thod Oxygen Flow Rate 05/24/24 03:05 05/24/24 03:06 05/24/24 03:30 Pulse Rate Respiratory Rate Blood Pressure Blood Pressure [Ri ght Upper Arm] Pulse Oximetry 92 95 97 Oxygen Delivery Me thod Oxygen Flow Rate 05/24/24 03:32 05/24/24 04:00 05/24/24 04:03 Pulse Rate Respiratory Rate Blood Pressure Blood Pressure [Ri ght Upper Arm] Pulse Oximetry 97 97 96 Oxygen Delivery Me thod Oxygen Flow Rate 05/24/24 04:30 05/24/24 04:32 05/24/24 04:48 Pulse Rate Respiratory Rate Blood Pressure Blood Pressure [Ri ght Upper Arm] Pulse Oximetry 94 95 95 Oxygen Delivery Me thod Oxygen Flow Rate 05/24/24 05:00 05/24/24 05:02 05/24/24 05:30 Pulse Rate Respiratory Rate Blood Pressure Blood Pressure [Ri ght Upper Arm] Pulse Oximetry 95 91 97 Oxygen Delivery Me thod Oxygen Flow Rate 05/24/24 05:33 05/24/24 06:00 05/24/24 06:02 Pulse Rate Respiratory Rate Blood Pressure Blood Pressure [Ri ght Upper Arm] Pulse Oximetry 95 96 96 Oxygen Delivery Me thod Oxygen Flow Rate 05/24/24 06:30 05/24/24 06:33 05/24/24 06:35 Pulse Rate Respiratory Rate Blood Pressure Blood Pressure [Ri ght Upper Arm] Pulse Oximetry 97 98 93 Oxygen Delivery Me thod Oxygen Flow Rate 05/24/24 07:00 05/24/24 07:02 05/24/24 07:04 Pulse Rate Respiratory Rate Blood Pressure Blood Pressure [Ri ght Upper Arm] Pulse Oximetry 94 94 89 Oxygen Delivery Me thod Oxygen Flow Rate 05/24/24 07:30 05/24/24 07:32 05/24/24 08:00 Pulse Rate Respiratory Rate Blood Pressure Blood Pressure [Ri ght Upper Arm] Pulse Oximetry 93 91 94 Oxygen Delivery Me thod Oxygen Flow Rate 05/24/24 08:02 05/24/24 08:30 05/24/24 08:32 Pulse Rate Respiratory Rate Blood Pressure Blood Pressure [Ri ght Upper Arm] Pulse Oximetry 88 96 91 Oxygen Delivery Me thod Oxygen Flow Rate 05/24/24 09:00 05/24/24 09:02 05/24/24 09:30 Pulse Rate Respiratory Rate Blood Pressure Blood Pressure [Ri ght Upper Arm] Pulse Oximetry 93 91 97 Oxygen Delivery Me thod Oxygen Flow Rate 05/24/24 09:32 05/24/24 10:00 05/24/24 10:02 Pulse Rate Respiratory Rate Blood Pressure Blood Pressure [Ri ght Upper Arm] Pulse Oximetry 93 95 88 Oxygen Delivery Me thod Oxygen Flow Rate 05/24/24 10:30 05/24/24 10:32 05/24/24 11:00 Pulse Rate Respiratory Rate Blood Pressure Blood Pressure [Ri ght Upper Arm] Pulse Oximetry 93 93 95 Oxygen Delivery Me thod Oxygen Flow Rate 05/24/24 11:02 05/24/24 11:04 05/24/24 11:04 Pulse Rate Respiratory Rate Blood Pressure Blood Pressure [Ri ght Upper Arm] Pulse Oximetry 91 94 94 Oxygen Delivery Me thod Oxygen Flow Rate 05/24/24 11:30 05/24/24 11:32 05/24/24 12:00 Pulse Rate Respiratory Rate Blood Pressure Blood Pressure [Ri ght Upper Arm] Pulse Oximetry 94 94 96 Oxygen Delivery Me thod Oxygen Flow Rate 05/24/24 12:03 05/24/24 12:08 05/24/24 12:30 Pulse Rate Respiratory Rate Blood Pressure Blood Pressure [Ri ght Upper Arm] 120/60 Pulse Oximetry 94 92 94 Oxygen Delivery Me thod Oxygen Flow Rate 05/24/24 12:32 05/24/24 13:00 05/24/24 13:02 Pulse Rate 71 70 Respiratory Rate Blood Pressure 106/38 L Blood Pressure [Ri ght Upper Arm] Pulse Oximetry 93 91 93 Oxygen Delivery Me thod Oxygen Flow Rate 05/24/24 13:30 05/24/24 13:33 05/24/24 13:33 Pulse Rate 70 70 70 Respiratory Rate Blood Pressure 119/35 L 119/35 L Blood Pressure [Ri ght Upper Arm] Pulse Oximetry 91 91 92 Oxygen Delivery Me thod Oxygen Flow Rate 05/24/24 14:00 05/24/24 14:02 05/24/24 14:07 Pulse Rate 71 75 71 Respiratory Rate 20 Blood Pressure 96/48 L Blood Pressure [Ri ght Upper Arm] Pulse Oximetry 96 93 96 Oxygen Delivery Me thod Nasal Cannula Oxygen Flow Rate 2 05/24/24 14:08 05/24/24 14:30 05/24/24 14:32 Pulse Rate 71 70 70 Respiratory Rate 18 Blood Pressure 114/49 L Blood Pressure [Ri ght Upper Arm] Pulse Oximetry 94 94 95 Oxygen Delivery Me thod Nasal Cannula Oxygen Flow Rate 2 05/24/24 15:00 05/24/24 15:02 05/24/24 15:30 Pulse Rate 70 69 69 Respiratory Rate 18 Blood Pressure 106/45 L Blood Pressure [Ri ght Upper Arm] Pulse Oximetry 91 94 95 Oxygen Delivery Me thod Nasal Cannula Oxygen Flow Rate 2 05/24/24 15:32 05/24/24 16:00 05/24/24 16:02 Pulse Rate 70 71 71 Respiratory Rate 20 Blood Pressure 108/45 L 132/48 L Blood Pressure [Ri ght Upper Arm] Pulse Oximetry 94 95 94 Oxygen Delivery Me thod Nasal Cannula Oxygen Flow Rate 2 05/24/24 16:03 05/24/24 16:06 05/24/24 16:30 Pulse Rate 70 70 Respiratory Rate Blood Pressure Blood Pressure [Ri ght Upper Arm] Pulse Oximetry 95 93 Oxygen Delivery Me thod Nasal Cannula Oxygen Flow Rate 2 05/24/24 16:32 05/24/24 17:00 05/24/24 17:02 Pulse Rate 70 70 70 Respiratory Rate 16 Blood Pressure 113/46 L 115/102 H Blood Pressure [Ri ght Upper Arm] Pulse Oximetry 92 93 93 Oxygen Delivery Me thod Nasal Cannula Oxygen Flow Rate 2 05/24/24 17:30 05/24/24 17:32 05/24/24 18:00 Pulse Rate 70 70 69 Respiratory Rate Blood Pressure 128/106 H Blood Pressure [Ri ght Upper Arm] Pulse Oximetry 94 95 92 Oxygen Delivery Me thod Oxygen Flow Rate 05/24/24 18:03 05/24/24 18:30 05/24/24 18:32 Pulse Rate 70 76 74 Respiratory Rate 6 L Blood Pressure 93/24 L 42/31 L Blood Pressure [Ri ght Upper Arm] Pulse Oximetry 96 93 92 Oxygen Delivery Me thod Nasal Cannula Oxygen Flow Rate 2 05/24/24 18:35 05/24/24 19:00 05/24/24 19:02 Pulse Rate 71 71 70 Respiratory Rate 16 Blood Pressure 116/35 L 110/26 L Blood Pressure [Ri ght Upper Arm] Pulse Oximetry 95 93 93 Oxygen Delivery Me thod Nasal Cannula Oxygen Flow Rate 2 05/24/24 19:30 05/24/24 19:32 Pulse Rate 70 72 Respiratory Rate Blood Pressure 112/40 L Blood Pressure [Ri ght Upper Arm] Pulse Oximetry 93 95 Oxygen Delivery Me thod Oxygen Flow Rate <Bjorn Billy, DO - Last Filed: 05/24/24 21:00> Vital Signs, click to edit/add: Vital Signs - 24 hr 05/23/24 21:00 05/23/24 21:02 05/23/24 21:30 Pulse Rate 69 70 70 Respiratory Rate Blood Pressure 141/60 H Blood Pressure [Ri ght Upper Arm] Pulse Oximetry 92 89 90 Oxygen Delivery Me thod Oxygen Flow Rate 05/23/24 21:32 05/23/24 22:00 05/23/24 22:02 Pulse Rate 70 68 70 Respiratory Rate Blood Pressure 139/60 137/56 L Blood Pressure [Ri ght Upper Arm] Pulse Oximetry 89 92 90 Oxygen Delivery Me thod Oxygen Flow Rate 05/23/24 22:15 05/23/24 22:30 05/23/24 22:32 Pulse Rate 69 70 Respiratory Rate Blood Pressure 147/70 H Blood Pressure [Ri ght Upper Arm] Pulse Oximetry 97 95 93 Oxygen Delivery Me thod Nasal Cannula Nasal Cannula Oxygen Flow Rate 0.5 05/23/24 22:33 05/23/24 22:55 05/23/24 23:00 Pulse Rate 70 71 Respiratory Rate Blood Pressure Blood Pressure [Ri ght Upper Arm] Pulse Oximetry 99 98 97 Oxygen Delivery Me thod Nasal Cannula Oxygen Flow Rate 0.5 05/23/24 23:05 05/23/24 23:18 05/23/24 23:30 Pulse Rate 79 69 70 Respiratory Rate 18 Blood Pressure 125/105 H Blood Pressure [Ri ght Upper Arm] Pulse Oximetry 98 94 95 Oxygen Delivery Me thod Nasal Cannula Oxygen Flow Rate 2 05/23/24 23:32 05/24/24 00:00 05/24/24 00:02 Pulse Rate 70 71 72 Respiratory Rate Blood Pressure 122/49 L 83/44 L Blood Pressure [Ri ght Upper Arm] Pulse Oximetry 97 94 91 Oxygen Delivery Me thod Oxygen Flow Rate 05/24/24 00:02 05/24/24 00:02 05/24/24 00:09 Pulse Rate 72 72 70 Respiratory Rate Blood Pressure 83/44 L 83/44 L 96/84 Blood Pressure [Ri ght Upper Arm] Pulse Oximetry 91 91 91 Oxygen Delivery Me thod Oxygen Flow Rate 05/24/24 00:30 05/24/24 00:32 05/24/24 01:00 Pulse Rate 70 70 69 Respiratory Rate Blood Pressure 98/49 L Blood Pressure [Ri ght Upper Arm] Pulse Oximetry 91 94 95 Oxygen Delivery Me thod Oxygen Flow Rate 05/24/24 01:02 05/24/24 01:19 05/24/24 01:30 Pulse Rate 73 71 70 Respiratory Rate Blood Pressure 82/36 L 117/41 L Blood Pressure [Ri ght Upper Arm] Pulse Oximetry 81 L 86 L 97 Oxygen Delivery Me thod Oxygen Flow Rate 05/24/24 01:32 05/24/24 02:00 05/24/24 02:02 Pulse Rate 70 70 Respiratory Rate Blood Pressure 96/37 L Blood Pressure [Ri ght Upper Arm] Pulse Oximetry 87 L 94 94 Oxygen Delivery Me thod Oxygen Flow Rate 05/24/24 02:30 05/24/24 02:32 05/24/24 03:00 Pulse Rate Respiratory Rate Blood Pressure Blood Pressure [Ri ght Upper Arm] Pulse Oximetry 95 91 90 Oxygen Delivery Me thod Oxygen Flow Rate 05/24/24 03:05 05/24/24 03:06 05/24/24 03:30 Pulse Rate Respiratory Rate Blood Pressure Blood Pressure [Ri ght Upper Arm] Pulse Oximetry 92 95 97 Oxygen Delivery Me thod Oxygen Flow Rate 05/24/24 03:32 05/24/24 04:00 05/24/24 04:03 Pulse Rate Respiratory Rate Blood Pressure Blood Pressure [Ri ght Upper Arm] Pulse Oximetry 97 97 96 Oxygen Delivery Me thod Oxygen Flow Rate 05/24/24 04:30 05/24/24 04:32 05/24/24 04:48 Pulse Rate Respiratory Rate Blood Pressure Blood Pressure [Ri ght Upper Arm] Pulse Oximetry 94 95 95 Oxygen Delivery Me thod Oxygen Flow Rate 05/24/24 05:00 05/24/24 05:02 05/24/24 05:30 Pulse Rate Respiratory Rate Blood Pressure Blood Pressure [Ri ght Upper Arm] Pulse Oximetry 95 91 97 Oxygen Delivery Me thod Oxygen Flow Rate 05/24/24 05:33 05/24/24 06:00 05/24/24 06:02 Pulse Rate Respiratory Rate Blood Pressure Blood Pressure [Ri ght Upper Arm] Pulse Oximetry 95 96 96 Oxygen Delivery Me thod Oxygen Flow Rate 05/24/24 06:30 05/24/24 06:33 05/24/24 06:35 Pulse Rate Respiratory Rate Blood Pressure Blood Pressure [Ri ght Upper Arm] Pulse Oximetry 97 98 93 Oxygen Delivery Me thod Oxygen Flow Rate 05/24/24 07:00 05/24/24 07:02 05/24/24 07:04 Pulse Rate Respiratory Rate Blood Pressure Blood Pressure [Ri ght Upper Arm] Pulse Oximetry 94 94 89 Oxygen Delivery Me thod Oxygen Flow Rate 05/24/24 07:30 05/24/24 07:32 05/24/24 08:00 Pulse Rate Respiratory Rate Blood Pressure Blood Pressure [Ri ght Upper Arm] Pulse Oximetry 93 91 94 Oxygen Delivery Me thod Oxygen Flow Rate 05/24/24 08:02 05/24/24 08:30 05/24/24 08:32 Pulse Rate Respiratory Rate Blood Pressure Blood Pressure [Ri ght Upper Arm] Pulse Oximetry 88 96 91 Oxygen Delivery Me thod Oxygen Flow Rate 05/24/24 09:00 05/24/24 09:02 05/24/24 09:30 Pulse Rate Respiratory Rate Blood Pressure Blood Pressure [Ri ght Upper Arm] Pulse Oximetry 93 91 97 Oxygen Delivery Me thod Oxygen Flow Rate 05/24/24 09:32 05/24/24 10:00 05/24/24 10:02 Pulse Rate Respiratory Rate Blood Pressure Blood Pressure [Ri ght Upper Arm] Pulse Oximetry 93 95 88 Oxygen Delivery Me thod Oxygen Flow Rate 05/24/24 10:30 05/24/24 10:32 05/24/24 11:00 Pulse Rate Respiratory Rate Blood Pressure Blood Pressure [Ri ght Upper Arm] Pulse Oximetry 93 93 95 Oxygen Delivery Me thod Oxygen Flow Rate 05/24/24 11:02 05/24/24 11:04 05/24/24 11:04 Pulse Rate Respiratory Rate Blood Pressure Blood Pressure [Ri ght Upper Arm] Pulse Oximetry 91 94 94 Oxygen Delivery Me thod Oxygen Flow Rate 05/24/24 11:30 05/24/24 11:32 05/24/24 12:00 Pulse Rate Respiratory Rate Blood Pressure Blood Pressure [Ri ght Upper Arm] Pulse Oximetry 94 94 96 Oxygen Delivery Me thod Oxygen Flow Rate 05/24/24 12:03 05/24/24 12:08 05/24/24 12:30 Pulse Rate Respiratory Rate Blood Pressure Blood Pressure [Ri ght Upper Arm] 120/60 Pulse Oximetry 94 92 94 Oxygen Delivery Me thod Oxygen Flow Rate 05/24/24 12:32 05/24/24 13:00 05/24/24 13:02 Pulse Rate 71 70 Respiratory Rate Blood Pressure 106/38 L Blood Pressure [Ri ght Upper Arm] Pulse Oximetry 93 91 93 Oxygen Delivery Me thod Oxygen Flow Rate 05/24/24 13:30 05/24/24 13:33 05/24/24 13:33 Pulse Rate 70 70 70 Respiratory Rate Blood Pressure 119/35 L 119/35 L Blood Pressure [Ri ght Upper Arm] Pulse Oximetry 91 91 92 Oxygen Delivery Me thod Oxygen Flow Rate 05/24/24 14:00 05/24/24 14:02 05/24/24 14:07 Pulse Rate 71 75 71 Respiratory Rate 20 Blood Pressure 96/48 L Blood Pressure [Ri ght Upper Arm] Pulse Oximetry 96 93 96 Oxygen Delivery Me thod Nasal Cannula Oxygen Flow Rate 2 05/24/24 14:08 05/24/24 14:30 05/24/24 14:32 Pulse Rate 71 70 70 Respiratory Rate 18 Blood Pressure 114/49 L Blood Pressure [Ri ght Upper Arm] Pulse Oximetry 94 94 95 Oxygen Delivery Me thod Nasal Cannula Oxygen Flow Rate 2 05/24/24 15:00 05/24/24 15:02 05/24/24 15:30 Pulse Rate 70 69 69 Respiratory Rate 18 Blood Pressure 106/45 L Blood Pressure [Ri ght Upper Arm] Pulse Oximetry 91 94 95 Oxygen Delivery Me thod Nasal Cannula Oxygen Flow Rate 2 05/24/24 15:32 05/24/24 16:00 05/24/24 16:02 Pulse Rate 70 71 71 Respiratory Rate 20 Blood Pressure 108/45 L 132/48 L Blood Pressure [Ri ght Upper Arm] Pulse Oximetry 94 95 94 Oxygen Delivery Me thod Nasal Cannula Oxygen Flow Rate 2 05/24/24 16:03 05/24/24 16:06 05/24/24 16:30 Pulse Rate 70 70 Respiratory Rate Blood Pressure Blood Pressure [Ri ght Upper Arm] Pulse Oximetry 95 93 Oxygen Delivery Me thod Nasal Cannula Oxygen Flow Rate 2 05/24/24 16:32 05/24/24 17:00 05/24/24 17:02 Pulse Rate 70 70 70 Respiratory Rate 16 Blood Pressure 113/46 L 115/102 H Blood Pressure [Ri ght Upper Arm] Pulse Oximetry 92 93 93 Oxygen Delivery Me thod Nasal Cannula Oxygen Flow Rate 2 05/24/24 17:30 05/24/24 17:32 05/24/24 18:00 Pulse Rate 70 70 69 Respiratory Rate Blood Pressure 128/106 H Blood Pressure [Ri ght Upper Arm] Pulse Oximetry 94 95 92 Oxygen Delivery Me thod Oxygen Flow Rate 05/24/24 18:03 05/24/24 18:30 05/24/24 18:32 Pulse Rate 70 76 74 Respiratory Rate 6 L Blood Pressure 93/24 L 42/31 L Blood Pressure [Ri ght Upper Arm] Pulse Oximetry 96 93 92 Oxygen Delivery Me thod Nasal Cannula Oxygen Flow Rate 2 05/24/24 18:35 05/24/24 19:00 05/24/24 19:02 Pulse Rate 71 71 70 Respiratory Rate 16 Blood Pressure 116/35 L 110/26 L Blood Pressure [Ri ght Upper Arm] Pulse Oximetry 95 93 93 Oxygen Delivery Me thod Nasal Cannula Oxygen Flow Rate 2 05/24/24 19:30 05/24/24 19:32 Pulse Rate 70 72 Respiratory Rate Blood Pressure 112/40 L Blood Pressure [Ri ght Upper Arm] Pulse Oximetry 93 95 Oxygen Delivery Me thod Oxygen Flow Rate <Kristie Hutton MD - Last Filed: 05/24/24 00:03> Vital Signs, click to edit/add: Vital Signs - 24 hr 05/23/24 21:00 05/23/24 21:02 05/23/24 21:30 Pulse Rate 69 70 70 Respiratory Rate Blood Pressure 141/60 H Blood Pressure [Ri ght Upper Arm] Pulse Oximetry 92 89 90 Oxygen Delivery Me thod Oxygen Flow Rate 05/23/24 21:32 05/23/24 22:00 05/23/24 22:02 Pulse Rate 70 68 70 Respiratory Rate Blood Pressure 139/60 137/56 L Blood Pressure [Ri ght Upper Arm] Pulse Oximetry 89 92 90 Oxygen Delivery Me thod Oxygen Flow Rate 05/23/24 22:15 05/23/24 22:30 05/23/24 22:32 Pulse Rate 69 70 Respiratory Rate Blood Pressure 147/70 H Blood Pressure [Ri ght Upper Arm] Pulse Oximetry 97 95 93 Oxygen Delivery Me thod Nasal Cannula Nasal Cannula Oxygen Flow Rate 0.5 05/23/24 22:33 05/23/24 22:55 05/23/24 23:00 Pulse Rate 70 71 Respiratory Rate Blood Pressure Blood Pressure [Ri ght Upper Arm] Pulse Oximetry 99 98 97 Oxygen Delivery Me thod Nasal Cannula Oxygen Flow Rate 0.5 05/23/24 23:05 05/23/24 23:18 05/23/24 23:30 Pulse Rate 79 69 70 Respiratory Rate 18 Blood Pressure 125/105 H Blood Pressure [Ri ght Upper Arm] Pulse Oximetry 98 94 95 Oxygen Delivery Me thod Nasal Cannula Oxygen Flow Rate 2 05/23/24 23:32 05/24/24 00:00 05/24/24 00:02 Pulse Rate 70 71 72 Respiratory Rate Blood Pressure 122/49 L 83/44 L Blood Pressure [Ri ght Upper Arm] Pulse Oximetry 97 94 91 Oxygen Delivery Me thod Oxygen Flow Rate 05/24/24 00:02 05/24/24 00:02 05/24/24 00:09 Pulse Rate 72 72 70 Respiratory Rate Blood Pressure 83/44 L 83/44 L 96/84 Blood Pressure [Ri ght Upper Arm] Pulse Oximetry 91 91 91 Oxygen Delivery Me thod Oxygen Flow Rate 05/24/24 00:30 05/24/24 00:32 05/24/24 01:00 Pulse Rate 70 70 69 Respiratory Rate Blood Pressure 98/49 L Blood Pressure [Ri ght Upper Arm] Pulse Oximetry 91 94 95 Oxygen Delivery Me thod Oxygen Flow Rate 05/24/24 01:02 05/24/24 01:19 05/24/24 01:30 Pulse Rate 73 71 70 Respiratory Rate Blood Pressure 82/36 L 117/41 L Blood Pressure [Ri ght Upper Arm] Pulse Oximetry 81 L 86 L 97 Oxygen Delivery Me thod Oxygen Flow Rate 05/24/24 01:32 05/24/24 02:00 05/24/24 02:02 Pulse Rate 70 70 Respiratory Rate Blood Pressure 96/37 L Blood Pressure [Ri ght Upper Arm] Pulse Oximetry 87 L 94 94 Oxygen Delivery Me thod Oxygen Flow Rate 05/24/24 02:30 05/24/24 02:32 05/24/24 03:00 Pulse Rate Respiratory Rate Blood Pressure Blood Pressure [Ri ght Upper Arm] Pulse Oximetry 95 91 90 Oxygen Delivery Me thod Oxygen Flow Rate 05/24/24 03:05 05/24/24 03:06 05/24/24 03:30 Pulse Rate Respiratory Rate Blood Pressure Blood Pressure [Ri ght Upper Arm] Pulse Oximetry 92 95 97 Oxygen Delivery Me thod Oxygen Flow Rate 05/24/24 03:32 05/24/24 04:00 05/24/24 04:03 Pulse Rate Respiratory Rate Blood Pressure Blood Pressure [Ri ght Upper Arm] Pulse Oximetry 97 97 96 Oxygen Delivery Me thod Oxygen Flow Rate 05/24/24 04:30 05/24/24 04:32 05/24/24 04:48 Pulse Rate Respiratory Rate Blood Pressure Blood Pressure [Ri ght Upper Arm] Pulse Oximetry 94 95 95 Oxygen Delivery Me thod Oxygen Flow Rate 05/24/24 05:00 05/24/24 05:02 05/24/24 05:30 Pulse Rate Respiratory Rate Blood Pressure Blood Pressure [Ri ght Upper Arm] Pulse Oximetry 95 91 97 Oxygen Delivery Me thod Oxygen Flow Rate 05/24/24 05:33 05/24/24 06:00 05/24/24 06:02 Pulse Rate Respiratory Rate Blood Pressure Blood Pressure [Ri ght Upper Arm] Pulse Oximetry 95 96 96 Oxygen Delivery Me thod Oxygen Flow Rate 05/24/24 06:30 05/24/24 06:33 05/24/24 06:35 Pulse Rate Respiratory Rate Blood Pressure Blood Pressure [Ri ght Upper Arm] Pulse Oximetry 97 98 93 Oxygen Delivery Me thod Oxygen Flow Rate 05/24/24 07:00 05/24/24 07:02 05/24/24 07:04 Pulse Rate Respiratory Rate Blood Pressure Blood Pressure [Ri ght Upper Arm] Pulse Oximetry 94 94 89 Oxygen Delivery Me thod Oxygen Flow Rate 05/24/24 07:30 05/24/24 07:32 05/24/24 08:00 Pulse Rate Respiratory Rate Blood Pressure Blood Pressure [Ri ght Upper Arm] Pulse Oximetry 93 91 94 Oxygen Delivery Me thod Oxygen Flow Rate 05/24/24 08:02 05/24/24 08:30 05/24/24 08:32 Pulse Rate Respiratory Rate Blood Pressure Blood Pressure [Ri ght Upper Arm] Pulse Oximetry 88 96 91 Oxygen Delivery Me thod Oxygen Flow Rate 05/24/24 09:00 05/24/24 09:02 05/24/24 09:30 Pulse Rate Respiratory Rate Blood Pressure Blood Pressure [Ri ght Upper Arm] Pulse Oximetry 93 91 97 Oxygen Delivery Me thod Oxygen Flow Rate 05/24/24 09:32 05/24/24 10:00 05/24/24 10:02 Pulse Rate Respiratory Rate Blood Pressure Blood Pressure [Ri ght Upper Arm] Pulse Oximetry 93 95 88 Oxygen Delivery Me thod Oxygen Flow Rate 05/24/24 10:30 05/24/24 10:32 05/24/24 11:00 Pulse Rate Respiratory Rate Blood Pressure Blood Pressure [Ri ght Upper Arm] Pulse Oximetry 93 93 95 Oxygen Delivery Me thod Oxygen Flow Rate 05/24/24 11:02 05/24/24 11:04 05/24/24 11:04 Pulse Rate Respiratory Rate Blood Pressure Blood Pressure [Ri ght Upper Arm] Pulse Oximetry 91 94 94 Oxygen Delivery Me thod Oxygen Flow Rate 05/24/24 11:30 05/24/24 11:32 05/24/24 12:00 Pulse Rate Respiratory Rate Blood Pressure Blood Pressure [Ri ght Upper Arm] Pulse Oximetry 94 94 96 Oxygen Delivery Me thod Oxygen Flow Rate 05/24/24 12:03 05/24/24 12:08 05/24/24 12:30 Pulse Rate Respiratory Rate Blood Pressure Blood Pressure [Ri ght Upper Arm] 120/60 Pulse Oximetry 94 92 94 Oxygen Delivery Me thod Oxygen Flow Rate 05/24/24 12:32 05/24/24 13:00 05/24/24 13:02 Pulse Rate 71 70 Respiratory Rate Blood Pressure 106/38 L Blood Pressure [Ri ght Upper Arm] Pulse Oximetry 93 91 93 Oxygen Delivery Me thod Oxygen Flow Rate 05/24/24 13:30 05/24/24 13:33 05/24/24 13:33 Pulse Rate 70 70 70 Respiratory Rate Blood Pressure 119/35 L 119/35 L Blood Pressure [Ri ght Upper Arm] Pulse Oximetry 91 91 92 Oxygen Delivery Me thod Oxygen Flow Rate 05/24/24 14:00 05/24/24 14:02 05/24/24 14:07 Pulse Rate 71 75 71 Respiratory Rate 20 Blood Pressure 96/48 L Blood Pressure [Ri ght Upper Arm] Pulse Oximetry 96 93 96 Oxygen Delivery Me thod Nasal Cannula Oxygen Flow Rate 2 05/24/24 14:08 05/24/24 14:30 05/24/24 14:32 Pulse Rate 71 70 70 Respiratory Rate 18 Blood Pressure 114/49 L Blood Pressure [Ri ght Upper Arm] Pulse Oximetry 94 94 95 Oxygen Delivery Me thod Nasal Cannula Oxygen Flow Rate 2 05/24/24 15:00 05/24/24 15:02 05/24/24 15:30 Pulse Rate 70 69 69 Respiratory Rate 18 Blood Pressure 106/45 L Blood Pressure [Ri ght Upper Arm] Pulse Oximetry 91 94 95 Oxygen Delivery Me thod Nasal Cannula Oxygen Flow Rate 2 05/24/24 15:32 05/24/24 16:00 05/24/24 16:02 Pulse Rate 70 71 71 Respiratory Rate 20 Blood Pressure 108/45 L 132/48 L Blood Pressure [Ri ght Upper Arm] Pulse Oximetry 94 95 94 Oxygen Delivery Me thod Nasal Cannula Oxygen Flow Rate 2 05/24/24 16:03 05/24/24 16:06 05/24/24 16:30 Pulse Rate 70 70 Respiratory Rate Blood Pressure Blood Pressure [Ri ght Upper Arm] Pulse Oximetry 95 93 Oxygen Delivery Me thod Nasal Cannula Oxygen Flow Rate 2 05/24/24 16:32 05/24/24 17:00 05/24/24 17:02 Pulse Rate 70 70 70 Respiratory Rate 16 Blood Pressure 113/46 L 115/102 H Blood Pressure [Ri ght Upper Arm] Pulse Oximetry 92 93 93 Oxygen Delivery Me thod Nasal Cannula Oxygen Flow Rate 2 05/24/24 17:30 05/24/24 17:32 05/24/24 18:00 Pulse Rate 70 70 69 Respiratory Rate Blood Pressure 128/106 H Blood Pressure [Ri ght Upper Arm] Pulse Oximetry 94 95 92 Oxygen Delivery Me thod Oxygen Flow Rate 05/24/24 18:03 05/24/24 18:30 05/24/24 18:32 Pulse Rate 70 76 74 Respiratory Rate 6 L Blood Pressure 93/24 L 42/31 L Blood Pressure [Ri ght Upper Arm] Pulse Oximetry 96 93 92 Oxygen Delivery Me thod Nasal Cannula Oxygen Flow Rate 2 05/24/24 18:35 05/24/24 19:00 05/24/24 19:02 Pulse Rate 71 71 70 Respiratory Rate 16 Blood Pressure 116/35 L 110/26 L Blood Pressure [Ri ght Upper Arm] Pulse Oximetry 95 93 93 Oxygen Delivery Me thod Nasal Cannula Oxygen Flow Rate 2 05/24/24 19:30 05/24/24 19:32 Pulse Rate 70 72 Respiratory Rate Blood Pressure 112/40 L Blood Pressure [Ri ght Upper Arm] Pulse Oximetry 93 95 Oxygen Delivery Me thod Oxygen Flow Rate <Marina Longo MD - Last Filed: 05/24/24 07:49> Course Course ED Course: Dr. Longo- I assumed care for patient overnight from outgoing evening provider. We were still unable to locate any placement and will begin calling again in the daylight hours. Will hand over care to day shift partner. Patient remained basically stable for me overnight. He did require some supplemental oxygen while sleeping but did not have his CPAP so that is not surprising. He did become a little agitated at around 4:00 a.m.. Rather untimely since we were incredibly busy. We did get a sitter for him for a couple of hours and with just some stimulation and conversation, he did really well. He did not require any medical interventions and was friendly and cheerful, I could hear him conversing with staff while caring for other patients. Unfortunately, with the acuity of everyone else in the ED I did not get to his evening medications. I have examined these this morning and have ordered the most basic morning medications, some sliding scale insulin and his basal insulin. I am told his blood sugars 107 this morning. Will start a regular diet and await calls for transfer. He does still require a unit with dialysis capabilities and does still seem fluid overloaded. I think that the hemoglobin is mostly dilutional but it is difficult to tell for sure. <Marina Longo MD - Last Filed: 05/24/24 07:49> Vital Signs Vital signs: Initial Vital Signs Temperature 97.6 F 05/23/24 16:04 Temperature Source Temporal Artery Scan 05/23/24 16:04 Pulse Rate 75 05/23/24 16:04 Pulse Rhythm Regular 05/23/24 16:04 Respiratory Rate 20 05/23/24 16:04 Blood Pressure 104/55 L 05/23/24 16:04 Blood Pressure Mean 71 05/23/24 16:04 Pulse Oximetry 92 05/23/24 16:04 Oxygen Delivery Method Room Air 05/23/24 16:04 Vital Signs Temperature 97.6 F 05/23/24 16:04 Pulse Rate 75 05/23/24 16:04 Respiratory Rate 20 05/23/24 16:04 Blood Pressure 104/55 L 05/23/24 16:04 Pulse Oximetry 92 05/23/24 16:04 Oxygen Delivery Method Room Air 05/23/24 16:04 Temperature 97.6 F 05/23/24 16:04 Pulse Rate 72 05/24/24 19:32 Respiratory Rate 16 05/24/24 19:02 Blood Pressure 112/40 L 05/24/24 19:32 Pulse Oximetry 95 05/24/24 19:32 Oxygen Delivery Method Nasal Cannula 05/24/24 19:02 Oxygen Flow Rate 2 05/24/24 19:02 <Bjorn Billy DO - Last Filed: 05/24/24 21:00> Initial Vital Signs Temperature 97.6 F 05/23/24 16:04 Temperature Source Temporal Artery Scan 05/23/24 16:04 Pulse Rate 75 05/23/24 16:04 Pulse Rhythm Regular 05/23/24 16:04 Respiratory Rate 20 05/23/24 16:04 Blood Pressure 104/55 L 05/23/24 16:04 Blood Pressure Mean 71 05/23/24 16:04 Pulse Oximetry 92 05/23/24 16:04 Oxygen Delivery Method Room Air 05/23/24 16:04 Vital Signs Temperature 97.6 F 05/23/24 16:04 Pulse Rate 75 05/23/24 16:04 Respiratory Rate 20 05/23/24 16:04 Blood Pressure 104/55 L 05/23/24 16:04 Pulse Oximetry 92 05/23/24 16:04 Oxygen Delivery Method Room Air 05/23/24 16:04 Temperature 97.6 F 05/23/24 16:04 Pulse Rate 72 05/24/24 19:32 Respiratory Rate 16 05/24/24 19:02 Blood Pressure 112/40 L 05/24/24 19:32 Pulse Oximetry 95 05/24/24 19:32 Oxygen Delivery Method Nasal Cannula 05/24/24 19:02 Oxygen Flow Rate 2 05/24/24 19:02 <Kristie Hutton MD - Last Filed: 05/24/24 00:03> Initial Vital Signs Temperature 97.6 F 05/23/24 16:04 Temperature Source Temporal Artery Scan 05/23/24 16:04 Pulse Rate 75 05/23/24 16:04 Pulse Rhythm Regular 05/23/24 16:04 Respiratory Rate 20 05/23/24 16:04 Blood Pressure 104/55 L 05/23/24 16:04 Blood Pressure Mean 71 05/23/24 16:04 Pulse Oximetry 92 05/23/24 16:04 Oxygen Delivery Method Room Air 05/23/24 16:04 Vital Signs Temperature 97.6 F 05/23/24 16:04 Pulse Rate 75 05/23/24 16:04 Respiratory Rate 20 05/23/24 16:04 Blood Pressure 104/55 L 05/23/24 16:04 Pulse Oximetry 92 05/23/24 16:04 Oxygen Delivery Method Room Air 05/23/24 16:04 Temperature 97.6 F 05/23/24 16:04 Pulse Rate 72 05/24/24 19:32 Respiratory Rate 16 05/24/24 19:02 Blood Pressure 112/40 L 05/24/24 19:32 Pulse Oximetry 95 05/24/24 19:32 Oxygen Delivery Method Nasal Cannula 05/24/24 19:02 Oxygen Flow Rate 2 05/24/24 19:02 <Marina Longo MD - Last Filed: 05/24/24 07:49> Medications Administered Medications: Generic Name Dose Route Start Last Admin Trade Name Freq PRN Reason Stop Dose Admin Albuterol/Ipratropium 1 neb 05/24/24 11:20 05/24/24 11:25 Iprat-Albut 0.5-2.5 Mg/3 Ml Neb IH 1 neb Q6H KARL Administration Aspirin 81 mg 05/24/24 09:00 05/24/24 09:03 Aspirin 81 Mg Tablet Ec PO 81 mg DAILY KARL Administration Budesonide 0.5 mg 05/24/24 21:00 05/24/24 18:35 Budesonide 0.5 Mg/2ml Neb NEB 0.5 mg BID KARL Administration Clopidogrel Bisulfate 75 mg 05/24/24 09:00 05/24/24 09:08 Clopidogrel 75 Mg Tablet PO 75 mg DAILY KARL Administration Insulin Aspart 0 unit 05/24/24 07:30 05/24/24 18:22 Insulin Aspart 100 Unit/Ml SUBCUT Not Given ACHS [facility] Protocol Levothyroxine Sodium 100 mcg 05/24/24 07:45 05/24/24 09:03 Levothyroxine 100 Mcg Tablet PO 100 mcg DAILY@0700 [facility] Administration Levothyroxine Sodium 75 mcg 05/24/24 07:50 05/24/24 09:03 Levothyroxine 75 Mcg Tablet PO 75 mcg DAILY@0700 [facility] Administration Loratadine 10 mg 05/24/24 09:00 05/24/24 09:03 Loratadine 10 Mg Tablet PO 10 mg DAILY KARL Administration Omeprazole 20 mg 05/24/24 07:45 05/24/24 11:22 Omeprazole [address] PO Not Given DAILY@0700 [facility] Senna/Docusate Sodium 1 tab 05/24/24 09:00 05/24/24 09:03 Sennosides/Docusate Tablet PO 1 tab DAILY [facility] Administration Discontinued Medications Generic Name Dose Route Start Last Admin Trade Name Freq PRN Reason Stop Dose Admin Albuterol 2.5 mg 05/24/24 04:46 05/24/24 05:51 Albuterol Sulfate 2.5 Mg/3 Ml Vial.Neb NEB 05/24/24 04:47 2.5 mg ONCE ONE Administration Azithromycin 500 mg 05/23/24 20:17 05/23/24 21:14 Azithromycin 250 Mg Tablet PO 05/23/24 20:18 500 mg ONCE ONE Administration Ceftriaxone Sodium 1 gm/ 100 mls @ 200 mls/hr 05/23/24 20:17 05/23/24 21:45 Sodium Chloride IVPB 05/23/24 20:18 Infused ONCE ONE Infusion <Bjorn Billy, DO - Last Filed: 05/24/24 21:00> Generic Name Dose Route Start Last Admin Trade Name Freq PRN Reason Stop Dose Admin Albuterol/Ipratropium 1 neb 05/24/24 11:20 05/24/24 11:25 Iprat-Albut 0.5-2.5 Mg/3 Ml Neb IH 1 neb Q6H KARL Administration Aspirin 81 mg 05/24/24 09:00 05/24/24 09:03 Aspirin 81 Mg Tablet Ec PO 81 mg DAILY KARL Administration Budesonide 0.5 mg 05/24/24 21:00 05/24/24 18:35 Budesonide 0.5 Mg/2ml Neb NEB 0.5 mg BID KARL Administration Clopidogrel Bisulfate 75 mg 05/24/24 09:00 05/24/24 09:08 Clopidogrel 75 Mg Tablet PO 75 mg DAILY KARL Administration Insulin Aspart 0 unit 05/24/24 07:30 05/24/24 18:22 Insulin Aspart 100 Unit/Ml SUBCUT Not Given ACHS [facility] Protocol Levothyroxine Sodium 100 mcg 05/24/24 07:45 05/24/24 09:03 Levothyroxine 100 Mcg Tablet PO 100 mcg DAILY@0700 [facility] Administration Levothyroxine Sodium 75 mcg 05/24/24 07:50 05/24/24 09:03 Levothyroxine 75 Mcg Tablet PO 75 mcg DAILY@0700 [facility] Administration Loratadine 10 mg 05/24/24 09:00 05/24/24 09:03 Loratadine 10 Mg Tablet PO 10 mg DAILY KARL Administration Omeprazole 20 mg 05/24/24 07:45 05/24/24 11:22 Omeprazole [address] PO Not Given DAILY@0700 [facility] Senna/Docusate Sodium 1 tab 05/24/24 09:00 05/24/24 09:03 Sennosides/Docusate Tablet PO 1 tab DAILY KAR[facility] Administration Discontinued Medications Generic Name Dose Route Start Last Admin Trade Name Christopher PRN Reason Stop Dose Admin Albuterol 2.5 mg 05/24/24 04:46 05/24/24 05:51 Albuterol Sulfate 2.5 Mg/3 Ml Vial.Neb NEB 05/24/24 04:47 2.5 mg ONCE ONE Administration Azithromycin 500 mg 05/23/24 20:17 05/23/24 21:14 Azithromycin 250 Mg Tablet PO 05/23/24 20:18 500 mg ONCE ONE Administration Ceftriaxone Sodium 1 gm/ 100 mls @ 200 mls/hr 05/23/24 20:17 05/23/24 21:45 Sodium Chloride IVPB 05/23/24 20:18 Infused ONCE ONE Infusion <Kristie Hutton MD - Last Filed: 05/24/24 00:03> Generic Name Dose Route Start Last Admin Trade Name Christopher PRN Reason Stop Dose Admin Albuterol/Ipratropium 1 neb 05/24/24 11:20 05/24/24 11:25 Iprat-Albut 0.5-2.5 Mg/3 Ml Neb IH 1 neb Q6H KARL Administration Aspirin 81 mg 05/24/24 09:00 05/24/24 09:03 Aspirin 81 Mg Tablet Ec PO 81 mg DAILY KARL Administration Budesonide 0.5 mg 05/24/24 21:00 05/24/24 18:35 Budesonide 0.5 Mg/2ml Neb NEB 0.5 mg BID KARL Administration Clopidogrel Bisulfate 75 mg 05/24/24 09:00 05/24/24 09:08 Clopidogrel 75 Mg Tablet PO 75 mg DAILY KARL Administration Insulin Aspart 0 unit 05/24/24 07:30 05/24/24 18:22 Insulin Aspart 100 Unit/Ml SUBCUT Not Given ACHS [facility] Protocol Levothyroxine Sodium 100 mcg 05/24/24 07:45 05/24/24 09:03 Levothyroxine 100 Mcg Tablet PO 100 mcg DAILY@0700 [facility] Administration Levothyroxine Sodium 75 mcg 05/24/24 07:50 05/24/24 09:03 Levothyroxine 75 Mcg Tablet PO 75 mcg DAILY@0700 [facility] Administration Loratadine 10 mg 05/24/24 09:00 05/24/24 09:03 Loratadine 10 Mg Tablet PO 10 mg DAILY KARL Administration Omeprazole 20 mg 05/24/24 07:45 05/24/24 11:22 Omeprazole [address] PO Not Given DAILY@0700 [facility] Senna/Docusate Sodium 1 tab 05/24/24 09:00 05/24/24 09:03 Sennosides/Docusate Tablet PO 1 tab DAILY KARL Administration Discontinued Medications Generic Name Dose Route Start Last Admin Trade Name Christopher PRN Reason Stop Dose Admin Albuterol 2.5 mg 05/24/24 04:46 05/24/24 05:51 Albuterol Sulfate 2.5 Mg/3 Ml Vial.Neb NEB 05/24/24 04:47 2.5 mg ONCE ONE Administration Azithromycin 500 mg 05/23/24 20:17 05/23/24 21:14 Azithromycin 250 Mg Tablet PO 05/23/24 20:18 500 mg ONCE ONE Administration Ceftriaxone Sodium 1 gm/ 100 mls @ 200 mls/hr 05/23/24 20:17 05/23/24 21:45 Sodium Chloride IVPB 05/23/24 20:18 Infused ONCE ONE Infusion <Marina Longo MD - Last Filed: 05/24/24 07:49> MDM - SOB/Dyspnea MDM Narrative Medical decision making narrative: Patient is an 84-year-old male presenting to the emergency department for shortness of breath. The differential diagnosis of shortness of breath is broad and includes common etiologies such as COPD, asthma, pneumonia, viral syndrome, etc. More serious etiologies considered include PE, CHF, coronary artery d isease, pneumothorax, aortic dissection, aortic aneurysm. Will do an EKG, troponin look for signs of ACS. Will do D-dimer look for signs of a PE. He only produces about a tsp of urine every few weeks ago was considering anuric. Will eventually do a CT either with or without contrast depending on D-dimer results so will hold off on doing any chest x-ray. CT will also be evaluated for pneumonia or pneumothorax. His hemoglobin came back at 7.6. His family states that they thought he was dehydrated today at dialysis so no fluid was taken off. Based on some research was able to do it appears that dialysis can cause some hemolysis I will do a Angeli test. Will also do a fecal occult test. His D-dimer came back elevated at 4.38. Since he is anuric was going to do a CTA PE study but our radiology department states that protocol does not allow us to do it with contrast unless he will be getting dialysis tomorrow. Due to this I will just do a CT non-con. Rest of his labs showed no acute concerning findings. Viral swab were negative. Troponin within normal limits an EKG shows a ventricular paced rhythm. CT scan of the chest shows signs of heart failure large the fusion site right upper lobe opacities that could either be alveolar atypical infection. Will treat with azithromycin and Rocephin. Does have signs of cholelithiasis with a dilated thickened wall. He seems most likely related to heart failure. Is not having any clinical signs of cholecystitis. No obvious signs of acute cholecystitis at this time. Will order liver panel. His BNP came back at 54,800. Due to his clear fluid overloaded I am hesitant to give him a unit of packed red blood cells and associated fluid as I am concerned of causing acute decompensated heart failure. He is otherwise stable right now with heart rate in the 70s and oxygenation between 90 and 95%. Concerned he has the heart failure and is on dialysis with the likely cause of shortness of breath coming from this effusion is another reason not to do the CTA. Will attempt to transfer the patient there are currently no beds available at multiple hospitals. Will continue to look for bed. Of note family states they thought he was Dry at dialysis so did not take any fluid during is 3 and half hour treatment. Patient signed out to my colleague Dr. Hutton Patient was signed out to me pending placement on 05/24/2024. There continues to be no beds available but the [facility] does state they are taking 1 05/25/2024 so he can get dialysis. His home meds were ordered overnight other than his inhalers. I added on the inhalers this morning. We do not have his home treatments but did talk to pharmacy and use the appropriate ones. Patient did prefer albuterol nebulizer over the inhaler. He continues to be doing well with no fevers. Repeat BMP shows no concerning findings although his potassium has gone up. CBC she still shows a hemoglobin of 7.8. Again as he continues to stay stable and do not want to give him anything that may cause him to become fluid overloaded. Did add on a CRP which is elevated but her procalcitonin is within normal limits. At this time I am not convinced he has an associated pneumonia. But since he continues to stay here and we have limited resources if he does start to decompensate I will give him another dose of Rocephin and azithromycin. Did desaturate a couple times while in the emergency department is currently on 2 L nasal cannula. <Bjorn Billy, - Last Filed: 05/24/24 21:00> Patient is an 84-year-old male presenting to the emergency department for shortness of breath. The differential diagnosis of shortness of breath is broad and includes common etiologies such as COPD, asthma, pneumonia, viral syndrome, etc. More serious etiologies considered include PE, CHF, coronary artery disease, pneumothorax, aortic dissection, aortic aneurysm. Will do an EKG, troponin look for signs of ACS. Will do D-dimer look for signs of a PE. He only produces about a tsp of urine every few weeks ago was considering anuric. Will eventually do a CT either with or without contrast depending on D-dimer results so will hold off on doing any chest x-ray. CT will also be evaluated for pneumonia or pneumothorax. His hemoglobin came back at 7.6. His family states that they thought he was dehydrated today at dialysis so no fluid was taken off. Based on some research was able to do it appears that dialysis can cause some hemolysis I will do a Angeli test. Will also do a fecal occult test. His D-dimer came back elevated at 4.38. Since he is anuric was going to do a CTA PE study but our radiology department states that protocol does not allow us to do it with contrast unless he will be getting dialysis tomorrow. Due to this I will just do a CT non-con. Rest of his labs showed no acute concerning findings. Viral swab were negative. Troponin within normal limits an EKG shows a ventricular paced rhythm. CT scan of the chest shows signs of heart failure large the fusion site right upper lobe opacities that could either be alveolar atypical infection. Will treat with azithromycin and Rocephin. Does have signs of cholelithiasis with a dilated thickened wall. He seems most likely related to heart failure. Is not having any clinical signs of cholecystitis. No obvious signs of acute cholecystitis at this time. Will order liver panel. His BNP came back at 54,800. Due to his clear fluid overloaded I am hesitant to give him a unit of packed red blood cells and associated fluid as I am concerned of causing acute decompensated heart failure. He is otherwise stable right now with heart rate in the 70s and oxygenation between 90 and 95%. Concerned he has the heart fail ure and is on dialysis with the likely cause of shortness of breath coming from this effusion is another reason not to do the CTA. Will attempt to transfer the patient there are currently no beds available at multiple hospitals. Will continue to look for bed. Of note family states they thought he was Dry at dialysis so did not take any fluid during is 3 and half hour treatment. Patient signed out to my colleague Dr. Brennen Nair was signed out to by my colleague . Unfortunately [facility], [facility], [facility], [facility], [facility], [place], [facility] and [facility] have all decline this patient in transfer. Patient did receive antibiotics. He is resting comfortably in room 5. I was asked to check on the liver panel and this is all within normal limits. This case will be signed out to my colleague Dr. Longo <Kristie Hutton MD - Last Filed: 05/24/24 00:03> Lab Data Labs: Lab Results 05/23/24 05/23/24 05/23/24 Range/Units 16:30 17:37 17:57 WBC 8.79 (4.50-11.00) K/uL RBC 2.40 L (4.30-5.90) m/uL Hgb 7.6 L* (13.5-17.5) gm/dL Hct 22.8 L (37.0-53.0) % MCV 95 (80-100) fL MCH 32 (26-34) pg MCHC 33 (32-36) gm/dL RDW Coeff of Jordy 14.0 (11.5-15.5) % Plt Count 138 L (140-440) K/uL Neut % (Auto) 85.8 H (42.0-72.0) % Lymph % (Auto) 5.0 L (20-44) % Bosque % (Auto) 8.2 (0.0-11.0) % Eos % (Auto) 0.7 (0.0-7.0) % Baso % (Auto) 0.2 (0.0-3.0) % Neut # (Auto) 7.50 H (1.7-7.0) K/uL Lymph # (Auto) 0.40 L (0.90-2.90) K/uL Bos[place] # (Auto) 0.70 (0.00-0.90) K/UL Eos # (Auto) 0.06 (0.00-0.50) K/uL Baso # (Auto) 0.02 (0.00-0.30) K/uL Abs Immat Gran (auto) 0.01 (0.00-0.30) K/uL Imm/Tot Granulo (auto) 0.1 % D-Dimer Quant (PE/DVT) 4.38 H (0.00-0.50) ug/ml Sodium 134 L (135-149) mmol/L Potassium 3.1 L (3.6-5.1) mmol/L Chloride 92 L (96-114) mmol/L Carbon Dioxide 33 H (20-32) mmol/L Anion Gap 9 (7-15) mEq/L BUN 33 H (7-30) mg/dL Creatinine 3.1 H (0.5-1.5) mg/dL Estimated Creat Clear 18.77 Estimated GFR 19 ml/min Glucose 117 H (60-115) mg/dL Calcium 9.0 (8.4-10.6) mg/dL Total Bilirubin 0.7 (0.1-1.5) mg/dL Direct Bilirubin 0.5 (0.0-0.5) mg/dL AST 25 (12-35) U/L ALT 14 (4-50) U/L Alkaline Phosphatase 106 (40-150) U/L Troponin I 0.02 (0.01-0.04) ng/mL C-Reactive Protein (0.5-1.0) mg/dL NT-Pro-B Natriuret Pep 16519 pg/mL Total Protein 7.5 (6.0-8.3) g/dL Albumin 3.7 (3.3-5.0) g/dL Procalcitonin (<0.50) ng/mL Urine Creatinine Protein/Creatinin Ratio Urine Total Protein Stool Occult Blood (Negative) SARS-CoV-2 (PCR) Negative SARS-CoV-2 (Negative) Influenza Type A (PCR) Negative PCR FLU A (Negative) Influenza Type B (PCR) Negative PCR FLU B (Negative) RSV (PCR) Negative PCR RSV (Negative) Lab Acknowledgement Test Added POC Glucose (60-115) mg/dl Blood Type O Positive Antibody Screen NEGATIVE Direct Antiglob Test NEGATIVE 05/23/24 05/23/24 05/23/24 Range/Units 18:41 19:10 19:15 WBC (4.50-11.00) K/uL RBC (4.30-5.90) m/uL Hgb (13.5-17.5) gm/dL Hct (37.0-53.0) % MCV (80-100) fL MCH (26-34) pg MCHC (32-36) gm/dL RDW Coeff of Jordy (11.5-15.5) % Plt Count (140-440) K/uL Neut % (Auto) (42.0-72.0) % Lymph % (Auto) (20-44) % Bosque % (Auto) (0.0-11.0) % Eos % (Auto) (0.0-7.0) % Baso % (Auto) (0.0-3.0) % Neut # (Auto) (1.7-7.0) K/uL Lymph # (Auto) (0.90-2.90) K/uL Bos[place] # (Auto) (0.00-0.90) K/UL Eos # (Auto) (0.00-0.50) K/uL Baso # (Auto) (0.00-0.30) K/uL Abs Immat Gran (auto) (0.00-0.30) K/uL Imm/Tot Granulo (auto) % D-Dimer Quant (PE/DVT) (0.00-0.50) ug/ml Sodium (135-149) mmol/L Potassium (3.6-5.1) mmol/L Chloride (96-114) mmol/L Carbon Dioxide (20-32) mmol/L Anion Gap (7-15) mEq/L BUN (7-30) mg/dL Creatinine (0.5-1.5) mg/dL Estimated Creat Clear Estimated GFR ml/min Glucose (60-115) mg/dL Calcium (8.4-10.6) mg/dL Total Bilirubin (0.1-1.5) mg/dL Direct Bilirubin (0.0-0.5) mg/dL AST (12-35) U/L ALT (4-50) U/L Alkaline Phosphatase (40-150) U/L Troponin I (0.01-0.04) ng/mL C-Reactive Protein (0.5-1.0) mg/dL NT-Pro-B Natriuret Pep pg/mL Total Protein (6.0-8.3) g/dL Albumin (3.3-5.0) g/dL Procalcitonin (<0.50) ng/mL Urine Creatinine Cancelled Protein/Creatinin Ratio Cancelled Urine Total Protein Cancelled Stool Occult Blood Negative (Negative) SARS-CoV-2 (PCR) (Negative) Influenza Type A (PCR) (Negative) Influenza Type B (PCR) (Negative) RSV (PCR) (Negative) Lab Acknowledgement Test Added POC Glucose (60-115) mg/dl Blood Type Antibody Screen Direct Antiglob Test 05/24/24 05/24/24 05/24/24 Range/Units 07:24 12:41 19:21 WBC 6.23 (4.50-11.00) K/uL RBC 2.44 L (4.30-5.90) m/uL Hgb 7.8 L* (13.5-17.5) gm/dL Hct 23.6 L (37.0-53.0) % MCV 97 (80-100) fL MCH 32 (26-34) pg MCHC 33 (32-36) gm/dL RDW Coeff of Jordy 14.3 (11.5-15.5) % Plt Count 148 (140-440) K/uL Neut % (Auto) 79.8 H (42.0-72.0) % Lymph % (Auto) 7.2 L (20-44) % Bosque % (Auto) 10.9 (0.0-11.0) % Eos % (Auto) 1.4 (0.0-7.0) % Baso % (Auto) 0.5 (0.0-3.0) % Neut # (Auto) 5.00 (1.7-7.0) K/uL Lymph # (Auto) 0.40 L (0.90-2.90) K/uL Bos[place] # (Auto) 0.70 (0.00-0.90) K/UL Eos # (Auto) 0.09 (0.00-0.50) K/uL Baso # (Auto) 0.03 (0.00-0.30) K/uL Abs Immat Gran (auto) 0.01 (0.00-0.30) K/uL Imm/Tot Granulo (auto) 0.2 % D-Dimer Quant (PE/DVT) (0.00-0.50) ug/ml Sodium 134 L (135-149) mmol/L Potassium 3.7 (3.6-5.1) mmol/L Chloride 93 L (96-114) mmol/L Carbon Dioxide 31 (20-32) mmol/L Anion Gap 10 (7-15) mEq/L BUN 49 H (7-30) mg/dL Creatinine 4.7 H (0.5-1.5) mg/dL Estimated Creat Clear 12.38 Estimated GFR 11 ml/min Glucose 110 (60-115) mg/dL Calcium 9.1 (8.4-10.6) mg/dL Total Bilirubin (0.1-1.5) mg/dL Direct Bilirubin (0.0-0.5) mg/dL AST (12-35) U/L ALT (4-50) U/L Alkaline Phosphatase (40-150) U/L Troponin I (0.01-0.04) ng/mL C-Reactive Protein 8.5 H (0.5-1.0) mg/dL NT-Pro-B Natriuret Pep pg/mL Total Protein (6.0-8.3) g/dL Albumin (3.3-5.0) g/dL Procalcitonin 0.47 (<0.50) ng/mL Urine Creatinine Protein/Creatinin Ratio Urine Total Protein Stool Occult Blood (Negative) SARS-CoV-2 (PCR) (Negative) Influenza Type A (PCR) (Negative) Influenza Type B (PCR) (Negative) RSV (PCR) (Negative) Lab Acknowledgement Test Added POC Glucose 107 (60-115) mg/dl Blood Type Antibody Screen Direct Antiglob Test <Bjorn Billy, DO - Last Filed: 05/24/24 21:00> Lab Results 05/23/24 05/23/24 05/23/24 Range/Units 16:30 17:37 17:57 WBC 8.79 (4.50-11.00) K/uL RBC 2.40 L (4.30-5.90) m/uL Hgb 7.6 L* (13.5-17.5) gm/dL Hct 22.8 L (37.0-53.0) % MCV 95 (80-100) fL MCH 32 (26-34) pg MCHC 33 (32-36) gm/dL RDW Coeff of Jordy 14.0 (11.5-15.5) % Plt Count 138 L (140-440) K/uL Neut % (Auto) 85.8 H (42.0-72.0) % Lymph % (Auto) 5.0 L (20-44) % Bosque % (Auto) 8.2 (0.0-11.0) % Eos % (Auto) 0.7 (0.0-7.0) % Baso % (Auto) 0.2 (0.0-3.0) % Neut # (Auto) 7.50 H (1.7-7.0) K/uL Lymph # (Auto) 0.40 L (0.90-2.90) K/uL Bos[place] # (Auto) 0.70 (0.00-0.90) K/UL Eos # (Auto) 0.06 (0.00-0.50) K/uL Baso # (Auto) 0.02 (0.00-0.30) K/uL Abs Immat Gran (auto) 0.01 (0.00-0.30) K/uL Imm/Tot Granulo (auto) 0.1 % D-Dimer Quant (PE/DVT) 4.38 H (0.00-0.50) ug/ml Sodium 134 L (135-149) mmol/L Potassium 3.1 L (3.6-5.1) mmol/L Chloride 92 L (96-114) mmol/L Carbon Dioxide 33 H (20-32) mmol/L Anion Gap 9 (7-15) mEq/L BUN 33 H (7-30) mg/dL Creatinine 3.1 H (0.5-1.5) mg/dL Estimated Creat Clear 18.77 Estimated GFR 19 ml/min Glucose 117 H (60-115) mg/dL Calcium 9.0 (8.4-10.6) mg/dL Total Bilirubin 0.7 (0.1-1.5) mg/dL Direct Bilirubin 0.5 (0.0-0.5) mg/dL AST 25 (12-35) U/L ALT 14 (4-50) U/L Alkaline Phosphatase 106 (40-150) U/L Troponin I 0.02 (0.01-0.04) ng/mL C-Reactive Protein (0.5-1.0) mg/dL NT-Pro-B Natriuret Pep 49860 pg/mL Total Protein 7.5 (6.0-8.3) g/dL Albumin 3.7 (3.3-5.0) g/dL Procalcitonin (<0.50) ng/mL Urine Creatinine Protein/Creatinin Ratio Urine Total Protein Stool Occult Blood (Negative) SARS-CoV-2 (PCR) Negative SARS-CoV-2 (Negative) Influenza Type A (PCR) Negative PCR FLU A (Negative) Influenza Type B (PCR) Negative PCR FLU B (Negative) RSV (PCR) Negative PCR RSV (Negative) Lab Acknowledgement Test Added POC Glucose (60-115) mg/dl Blood Type O Positive Antibody Screen NEGATIVE Direct Antiglob Test NEGATIVE 05/23/24 05/23/24 05/23/24 Range/Units 18:41 19:10 19:15 WBC (4.50-11.00) K/uL RBC (4.30-5.90) m/uL Hgb (13.5-17.5) gm/dL Hct (37.0-53.0) % MCV (80-100) fL MCH (26-34) pg MCHC (32-36) gm/dL RDW Coeff of Jordy (11.5-15.5) % Plt Count (140-440) K/uL Neut % (Auto) (42.0-72.0) % Lymph % (Auto) (20-44) % Bosque % (Auto) (0.0-11.0) % Eos % (Auto) (0.0-7.0) % Baso % (Auto) (0.0-3.0) % Neut # (Auto) (1.7-7.0) K/uL Lymph # (Auto) (0.90-2.90) K/uL Bosque # (Auto) (0.00-0.90) K/UL Eos # (Auto) (0.00-0.50) K/uL Baso # (Auto) (0.00-0.30) K/uL Abs Immat Gran (auto) (0.00-0.30) K/uL Imm/Tot Granulo (auto) % D-Dimer Quant (PE/DVT) (0.00-0.50) ug/ml Sodium (135-149) mmol/L Potassium (3.6-5.1) mmol/L Chloride (96-114) mmol/L Carbon Dioxide (20-32) mmol/L Anion Gap (7-15) mEq/L BUN (7-30) mg/dL Creatinine (0.5-1.5) mg/dL Estimated Creat Clear Estimated GFR ml/min Glucose (60-115) mg/dL Calcium (8.4-10.6) mg/dL Total Bilirubin (0.1-1.5) mg/dL Direct Bilirubin (0.0-0.5) mg/dL AST (12-35) U/L ALT (4-50) U/L Alkaline Phosphatase (40-150) U/L Troponin I (0.01-0.04) ng/mL C-Reactive Protein (0.5-1.0) mg/dL NT-Pro-B Natriuret Pep pg/mL Total Protein (6.0-8.3) g/dL Albumin (3.3-5.0) g/dL Procalcitonin (<0.50) ng/mL Urine Creatinine Cancelled Protein/Creatinin Ratio Cancelled Urine Total Protein Cancelled Stool Occult Blood Negative (Negative) SARS-CoV-2 (PCR) (Negative) Influenza Type A (PCR) (Negative) Influenza Type B (PCR) (Negative) RSV (PCR) (Negative) Lab Acknowledgement Test Added POC Glucose (60-115) mg/dl Blood Type Antibody Screen Direct Antiglob Test 05/24/24 05/24/24 05/24/24 Range/Units 07:24 12:41 19:21 WBC 6.23 (4.50-11.00) K/uL RBC 2.44 L (4.30-5.90) m/uL Hgb 7.8 L* (13.5-17.5) gm/dL Hct 23.6 L (37.0-53.0) % MCV 97 (80-100) fL MCH 32 (26-34) pg MCHC 33 (32-36) gm/dL RDW Coeff of Jordy 14.3 (11.5-15.5) % Plt Count 148 (140-440) K/uL Neut % (Auto) 79.8 H (42.0-72.0) % Lymph % (Auto) 7.2 L (20-44) % Bosque % (Auto) 10.9 (0.0-11.0) % Eos % (Auto) 1.4 (0.0-7.0) % Baso % (Auto) 0.5 (0.0-3.0) % Neut # (Auto) 5.00 (1.7-7.0) K/uL Lymph # (Auto) 0.40 L (0.90-2.90) K/uL Bosque # (Auto) 0.70 (0.00-0.90) K/UL Eos # (Auto) 0.09 (0.00-0.50) K/uL Baso # (Auto) 0.03 (0.00-0.30) K/uL Abs Immat Gran (auto) 0.01 (0.00-0.30) K/uL Imm/Tot Granulo (auto) 0.2 % D-Dimer Quant (PE/DVT) (0.00-0.50) ug/ml Sodium 134 L (135-149) mmol/L Potassium 3.7 (3.6-5.1) mmol/L Chloride 93 L (96-114) mmol/L Carbon Dioxide 31 (20-32) mmol/L Anion Gap 10 (7-15) mEq/L BUN 49 H (7-30) mg/dL Creatinine 4.7 H (0.5-1.5) mg/dL Estimated Creat Clear 12.38 Estimated GFR 11 ml/min Glucose 110 (60-115) mg/dL Calcium 9.1 (8.4-10.6) mg/dL Total Bilirubin (0.1-1.5) mg/dL Direct Bilirubin (0.0-0.5) mg/dL AST (12-35) U/L ALT (4-50) U/L Alkaline Phosphatase (40-150) U/L Troponin I (0.01-0.04) ng/mL C-Reactive Protein 8.5 H (0.5-1.0) mg/dL NT-Pro-B Natriuret Pep pg/mL Total Protein (6.0-8.3) g/dL Albumin (3.3-5.0) g/dL Procalcitonin 0.47 (<0.50) ng/mL Urine Creatinine Protein/Creatinin Ratio Urine Total Protein Stool Occult Blood (Negative) SARS-CoV-2 (PCR) (Negative) Influenza Type A (PCR) (Negative) Influenza Type B (PCR) (Negative) RSV (PCR) (Negative) Lab Acknowledgement Test Added POC Glucose 107 (60-115) mg/dl Blood Type Antibody Screen Direct Antiglob Test <Kristie Hutton MD - Last Filed: 05/24/24 00:03> Lab Results 05/23/24 05/23/24 05/23/24 Range/Units 16:30 17:37 17:57 WBC 8.79 (4.50-11.00) K/uL RBC 2.40 L (4.30-5.90) m/uL Hgb 7.6 L* (13.5-17.5) gm/dL Hct 22.8 L (37.0-53.0) % MCV 95 (80-100) fL MCH 32 (26-34) pg MCHC 33 (32-36) gm/dL RDW Coeff of Jordy 14.0 (11.5-15.5) % Plt Count 138 L (140-440) K/uL Neut % (Auto) 85.8 H (42.0-72.0) % Lymph % (Auto) 5.0 L (20-44) % Bosque % (Auto) 8.2 (0.0-11.0) % Eos % (Auto) 0.7 (0.0-7.0) % Baso % (Auto) 0.2 (0.0-3.0) % Neut # (Auto) 7.50 H (1.7-7.0) K/uL Lymph # (Auto) 0.40 L (0.90-2.90) K/uL [place]que # (Auto) 0.70 (0.00-0.90) K/UL Eos # (Auto) 0.06 (0.00-0.50) K/uL Baso # (Auto) 0.02 (0.00-0.30) K/uL Abs Immat Gran (auto) 0.01 (0.00-0.30) K/uL Imm/Tot Granulo (auto) 0.1 % D-Dimer Quant (PE/DVT) 4.38 H (0.00-0.50) ug/ml Sodium 134 L (135-149) mmol/L Potassium 3.1 L (3.6-5.1) mmol/L Chloride 92 L (96-114) mmol/L Carbon Dioxide 33 H (20-32) mmol/L Anion Gap 9 (7-15) mEq/L BUN 33 H (7-30) mg/dL Creatinine 3.1 H (0.5-1.5) mg/dL Estimated Creat Clear 18.77 Estimated GFR 19 ml/min Glucose 117 H (60-115) mg/dL Calcium 9.0 (8.4-10.6) mg/dL Total Bilirubin 0.7 (0.1-1.5) mg/dL Direct Bilirubin 0.5 (0.0-0.5) mg/dL AST 25 (12-35) U/L ALT 14 (4-50) U/L Alkaline Phosphatase 106 (40-150) U/L Troponin I 0.02 (0.01-0.04) ng/mL C-Reactive Protein (0.5-1.0) mg/dL NT-Pro-B Natriuret Pep 07482 pg/mL Total Protein 7.5 (6.0-8.3) g/dL Albumin 3.7 (3.3-5.0) g/dL Procalcitonin (<0.50) ng/mL Urine Creatinine Protein/Creatinin Ratio Urine Total Protein Stool Occult Blood (Negative) SARS-CoV-2 (PCR) Negative SARS-CoV-2 (Negative) Influenza Type A (PCR) Negative PCR FLU A (Negative) Influenza Type B (PCR) Negative PCR FLU B (Negative) RSV (PCR) Negative PCR RSV (Negative) Lab Acknowledgement Test Added POC Glucose (60-115) mg/dl Blood Type O Positive Antibody Screen NEGATIVE Direct Antiglob Test NEGATIVE 05/23/24 05/23/24 05/23/24 Range/Units 18:41 19:10 19:15 WBC (4.50-11.00) K/uL RBC (4.30-5.90) m/uL Hgb (13.5-17.5) gm/dL Hct (37.0-53.0) % MCV (80-100) fL MCH (26-34) pg MCHC (32-36) gm/dL RDW Coeff of Jodry (11.5-15.5) % Plt Count (140-440) K/uL Neut % (Auto) (42.0-72.0) % Lymph % (Auto) (20-44) % Bosque % (Auto) (0.0-11.0) % Eos % (Auto) (0.0-7.0) % Baso % (Auto) (0.0-3.0) % Neut # (Auto) (1.7-7.0) K/uL Lymph # (Auto) (0.90-2.90) K/uL Bosque # (Auto) (0.00-0.90) K/UL Eos # (Auto) (0.00-0.50) K/uL Baso # (Auto) (0.00-0.30) K/uL Abs Immat Gran (auto) (0.00-0.30) K/uL Imm/Tot Granulo (auto) % D-Dimer Quant (PE/DVT) (0.00-0.50) ug/ml Sodium (135-149) mmol/L Potassium (3.6-5.1) mmol/L Chloride (96-114) mmol/L Carbon Dioxide (20-32) mmol/L Anion Gap (7-15) mEq/L BUN (7-30) mg/dL Creatinine (0.5-1.5) mg/dL Estimated Creat Clear Estimated GFR ml/min Glucose (60-115) mg/dL Calcium (8.4-10.6) mg/dL Total Bilirubin (0.1-1.5) mg/dL Direct Bilirubin (0.0-0.5) mg/dL AST (12-35) U/L ALT (4-50) U/L Alkaline Phosphatase (40-150) U/L Troponin I (0.01-0.04) ng/mL C-Reactive Protein (0.5-1.0) mg/dL NT-Pro-B Natriuret Pep pg/mL Total Protein (6.0-8.3) g/dL Albumin (3.3-5.0) g/dL Procalcitonin (<0.50) ng/mL Urine Creatinine Cancelled Protein/Creatinin Ratio Cancelled Urine Total Protein Cancelled Stool Occult Blood Negative (Negative) SARS-CoV-2 (PCR) (Negative) Influenza Type A (PCR) (Negative) Influenza Type B (PCR) (Negative) RSV (PCR) (Negative) Lab Acknowledgement Test Added POC Glucose (60-115) mg/dl Blood Type Antibody Screen Direct Antiglob Test 05/24/24 05/24/24 05/24/24 Range/Units 07:24 12:41 19:21 WBC 6.23 (4.50-11.00) K/uL RBC 2.44 L (4.30-5.90) m/uL Hgb 7.8 L* (13.5-17.5) gm/dL Hct 23.6 L (37.0-53.0) % MCV 97 (80-100) fL MCH 32 (26-34) pg MCHC 33 (32-36) gm/dL RDW Coeff of Jordy 14.3 (11.5-15.5) % Plt Count 148 (140-440) K/uL Neut % (Auto) 79.8 H (42.0-72.0) % Lymph % (Auto) 7.2 L (20-44) % [place] % (Auto) 10.9 (0.0-11.0) % Eos % (Auto) 1.4 (0.0-7.0) % Baso % (Auto) 0.5 (0.0-3.0) % Neut # (Auto) 5.00 (1.7-7.0) K/uL Lymph # (Auto) 0.40 L (0.90-2.90) K/uL [place] # (Auto) 0.70 (0.00-0.90) K/UL Eos # (Auto) 0.09 (0.00-0.50) K/uL Baso # (Auto) 0.03 (0.00-0.30) K/uL Abs Immat Gran (auto) 0.01 (0.00-0.30) K/uL Imm/Tot Granulo (auto) 0.2 % D-Dimer Quant (PE/DVT) (0.00-0.50) ug/ml Sodium 134 L (135-149) mmol/L Potassium 3.7 (3.6-5.1) mmol/L Chloride 93 L (96-114) mmol/L Carbon Dioxide 31 (20-32) mmol/L Anion Gap 10 (7-15) mEq/L BUN 49 H (7-30) mg/dL Creatinine 4.7 H (0.5-1.5) mg/dL Estimated Creat Clear 12.38 Estimated GFR 11 ml/min Glucose 110 (60-115) mg/dL Calcium 9.1 (8.4-10.6) mg/dL Total Bilirubin (0.1-1.5) mg/dL Direct Bilirubin (0.0-0.5) mg/dL AST (12-35) U/L ALT (4-50) U/L Alkaline Phosphatase (40-150) U/L Troponin I (0.01-0.04) ng/mL C-Reactive Protein 8.5 H (0.5-1.0) mg/dL NT-Pro-B Natriuret Pep pg/mL Total Protein (6.0-8.3) g/dL Albumin (3.3-5.0) g/dL Procalcitonin 0.47 (<0.50) ng/mL Urine Creatinine Protein/Creatinin Ratio Urine Total Protein Stool Occult Blood (Negative) SARS-CoV-2 (PCR) (Negative) Influenza Type A (PCR) (Negative) Influenza Type B (PCR) (Negative) RSV (PCR) (Negative) Lab Acknowledgement Test Added POC Glucose 107 (60-115) mg/dl Blood Type Antibody Screen Direct Antiglob Test <Marina Longo MD - Last Filed: 05/24/24 07:49> Imaging Data CT scan chest: Attestation: I have reviewed the pertinent imaging results. <Bjorn Billy DO - Last Filed: 05/24/24 21:00> Radiologist's impression: 1. Findings compatible with heart failure and pulmonary edema with a large left pleural effusion. 2. Patchy pulmonary opacities in the right upper lobe and spiculated opacities in the right lower lobe noted. These could represent areas of alveolar edema, though additional etiologies, including neoplasm and atypical infection, are not excluded. Follow-up CT in 8-12 weeks recommended. 3. Cholelithiasis with gallbladder dilation and wall thickening with mild adjacent stranding. This could relate to increased vascular pressures from heart failure but could be evaluated with ultrasound if there is clinical concern for acute cholecystitis. Please note that all CT scans at this facility use dose modulation, iterative reconstruction, and/or weight-based dosing when appropriate to reduce radiation dose to as low as reasonably achievable. Dictated by Андрей Diallo MD @ 05/23/2024 7:08:41 PM <Bjorn Billy DO - Last Filed: 05/24/24 21:00> ECG Data Attestation: I personally reviewed and interpreted this ECG as follows: <Bjorn Gonzalo BillyDO - Last Filed: 05/24/24 21:00> Prior ECG tracings: available for review <Bjorn Billy DO Last Filed: 05/24/24 21:00> Interpretation: Ventricular paced rhythm at a rate of 70 beats per minute, no clear ST or T-wave abnormalities. Appears similar to previous EKG on file <Bjorn Gonzalo Wenceslao - Last Filed: 05/24/24 21:00> Discharge Plan Discharge Clinical Impression: Pulmonary edema with congestive heart failure, Pleural effusion Anemia Qualifiers: Anemia type: unspecified type Qualified Code(s): D64.9 - Anemia, unspecified <Bjorn Billy Last Filed: 05/24/24 21:00> Patient Disposition: Xfer Other <Bjorn Billy DO - Last Filed: 05/24/24 21:00> Condition: Stable <Bjorn Billy - Last Filed: 05/24/24 21:00> Prescriptions: No Action insulin aspart U-100 [Novolog FlexPen U-100 Insulin] 100 unit/mL (3 mL) insulin pen 5 unit subcut TIDWM guaifenesin 100 mg/5 mL liquid 100 mg PO Q4H PRN (Reason: coughing) montelukast [Singulair] 10 mg tablet 10 mg PO HS nitroglycerin [Nitrostat] 0.4 mg tablet, sublingual 0.4 mg sublingual Q5M PRN Rx Instructions: do not exceed 3 doses per episode aspirin 81 mg capsule 81 mg PO DAILY loratadine [Claritin] 10 mg tablet 10 mg PO DAILY coenzyme Q10 [Co Q-10] 100 mg capsule 100 mg PO DAILY senna 8.6 mg capsule 8.6 - 17.2 mg PO BID acetaminophen [Tylenol Arthritis Pain] 650 mg tablet extended release 650 mg PO Q8H PRN insulin glargine [Lantus Solostar U-100 Insulin] 100 unit/mL (3 mL) insulin pen 18 unit subcut HS albuterol sulfate [Ventolin HFA] 90 mcg/actuation HFA aerosol inhaler 2 inh inhalation Q4H PRN pantoprazole 40 mg tablet,delayed release (DR/EC) 40 mg PO DAILY pravastatin 80 mg tablet 80 mg PO HS fluticasone propionate [24 Hour Allergy Relief] 50 mcg/actuation spray,suspension 1 spray intranasal DAILY PRN Rx Instructions: administer into each nostril cyclosporine [Restasis] 0.05 % dropperette 1 drp ophthalmic (eye) Q12H Dialyvite [id number] jm-zu-zan-mg tablet 1 tab PO BID Rx Instructions: administer with a meal atxrz-ny-[id number]-uvl-lad-jyjfoae-ast [MegaRed [place]-3 Krill Oil] 1,000-230-60 mg capsule 1 cap PO DAILY cholecalciferol (vitamin D3) 50 mcg (2,000 unit) capsule 50 mcg PO DAILY vitamin E 268 mg (400 unit) capsule 268 mg PO DAILY clopidogrel 75 mg tablet 75 mg PO DAILY Analgesic [place] (m.salic-menth) 15-10 % cream 1 applic topical TID PRN diphenhydramine HCl [Aler-Cap] 25 mg capsule 25 mg PO Q4H PRN fluticasone propion-salmeterol [Wixela Inhub] 100-50 mcg/dose blister with device 1 inh inhalation BID hydrocortisone 2.5 % cream 1 applic topical BID PRN levothyroxine 175 mcg capsule 175 mcg PO DAILY magnesium hydroxide [Dulcolax (magnesium hydroxide)] 400 mg/5 mL suspension 30 ml PO DAILY PRN tiotropium bromide [Spiriva with HandiHaler] 18 mcg capsule, w/inhalation device 1 cap inhalation DAILY Rx Instructions: puncture 1 cap using device; one dose = 2 inhalations <Bjorn Billy DO - Last Filed: 05/24/24 21:00> Stand Alone Forms: [employer] Info Instructions <Bjorn Billy DO - Last Filed: 05/24/24 21:00>
[2024-05-23 17:00] LABS: Basophils Absolute Auto 0.02 K/uL (0.00-0.30); Basophils Percent Auto 0.2 % (0.0-3.0); Eosinophils Absolute Auto 0.06 K/uL (0.00-0.50); Eosinophils Percent Auto 0.7 % (0.0-7.0); Hematocrit* 22.8 % (37.0-53.0); Immature Granulocytes Abs Auto 0.01 K/uL (0.00-0.30); Immature Granulocytes Pct Auto 0.1 %; Mean Corpuscular HGB Conc 33 gm/dL (32-36); Mean Corpuscular Hemoglobin 32 pg (26-34); Mean Corpuscular Volume 95 fL (80-100); Monocytes Percent Auto 8.2 % (0.0-11.0); Neutrophils Percent Auto 85.8 % (42.0-72.0); Platelet Count* 138 K/uL (140-440); White Blood Count* 8.79 K/uL (4.50-11.00)
[2024-05-23 17:17] LABS: Chloride* 92 mmol/L (96-114); Potassium* 3.1 mmol/L (3.6-5.1); Sodium* 134 mmol/L (135-149)
[2024-05-23 17:20] LABS: Anion Gap 9 mEq/L (7-15); Blood Urea Nitrogen* 33 mg/dL (7-30); Carbon Dioxide* 33 mmol/L (20-32); Creatinine* 3.1 mg/dL (0.5-1.5); Est. Creatinine Clearance* 18.77; Estimated Glomerular Filt Rate 19 ml/min; Glucose* 117 mg/dL (60-115)
[2024-05-23 17:32] LABS: Troponin I* 0.02 ng/mL (0.01-0.04)
[2024-05-23 17:33] LABS: Hemoglobin* 7.6 gm/dL (13.5-17.5); Slide Review Reflex No
--- NOTE | 2024-05-23 17:34 | ED.NURSE ---
called on [facility] 7.6. MD Billy aware
[2024-05-23 17:50] LABS: PCR FLU A Negative PCR FLU A (Negative); PCR FLU B Negative PCR FLU B (Negative); PCR RSV Negative PCR RSV (Negative); SARS PCR* Negative SARS-CoV-2 (Negative)
[2024-05-23 17:58] LABS: D Dimer Quantitative* 4.38 ug/ml (0.00-0.50)
--- NOTE | 2024-05-23 18:03 | CRLHL7_ITS ---
For Patients: As a result of the Century Cures Act, medical imaging exams and procedure reports are released immediately into your electronic medical record. You may view this report before your referring provider. If you have questions, please contact your health care provider. Indication: Shortness of breath Technique: Noncontrast CT of the chest with multiplanar reformats. Comparison: CT chest performed 12/27/2022 Findings: Lungs: Large left and trace right effusions. Calcified granulomata and areas of atelectasis. Patchy pulmonary opacities noted in the right upper lobe. Spiculated opacities in the right lower lobe noted measuring up to 2.9 centimeters. Mild emphysema. Interlobular septal thickening. No pneumothorax. Mediastinum: Cardiomegaly. Right chest biventricular pacer. Calcified coronary arterial and aortic atherosclerosis. Status post CABG. Lymph nodes: Mildly enlarged mediastinal nodes. Upper abdomen: Cholelithiasis with gallbladder dilation and mild wall thickening with adjacent stranding. Soft tissues: No acute abnormality appreciated. Bones: No acute abnormality appreciated. Impression: 1. Findings compatible with heart failure and pulmonary edema with a large left pleural effusion. 2. Patchy pulmonary opacities in the right upper lobe and spiculated opacities in the right lower lobe noted. These could represent areas of alveolar edema, though additional etiologies, including neoplasm and atypical infection, are not excluded. Follow-up CT in 8-12 weeks recommended. 3. Cholelithiasis with gallbladder dilation and wall thickening with mild adjacent stranding. This could relate to increased vascular pressures from heart failure but could be evaluated with ultrasound if there is clinical concern for acute cholecystitis. Please note that all CT scans at this facility use dose modulation, iterative reconstruction, and/or weight-based dosing when appropriate to reduce radiation dose to as low as reasonably achievable. Dictated by Андрей Diallo MD @ 05/23/2024 7:08:41 PM (Electronically Signed)
[2024-05-23 19:19] LABS: Fecal Occult Blood* Negative (Negative)
[2024-05-23 20:09] LABS: NT Pro B Type NatriureticPept* 54800 pg/mL
[2024-05-23 21:03] LABS: Albumin* 3.7 g/dL (3.3-5.0)
[2024-05-23 21:05] LABS: Bilirubin Direct* 0.5 mg/dL (0.0-0.5); Bilirubin Total* 0.7 mg/dL (0.1-1.5); Total Protein* 7.5 g/dL (6.0-8.3)
[2024-05-23 21:06] LABS: Alanine Aminotransferase* 14 U/L (4-50); Alkaline Phosphatase* 106 U/L (40-150); Aspartate Amino Transferase* 25 U/L (12-35)
[2024-05-23] MEDS: AZITHROMYCIN 250 MG TABLET 500 MG PO (21:14)
[2024-05-23] MEDS: cefTRIAXone 1 GM in 0.9 % SODIUM CHLORIDE Mini-bag 100 ML IVPB (21:15)
[2024-05-24] VITALS (106 sets, daily range): BP systolic 42–132; BP diastolic 24–106; PULSE 68–76; RESP 6–20; O2SAT 81–98
[2024-05-24] MEDS: ALBUTEROL SULFATE 2.5 MG/3 ML VIAL.NEB NEB (05:51)
[2024-05-24 07:49] LABS: Glucose, Point-of-Care* 107 mg/dl (60-115)
[2024-05-24] MEDS: ASPIRIN 81 MG TABLET EC PO (09:03)
[2024-05-24] MEDS: LEVOTHYROXINE 75 MCG TABLET PO (09:03)
[2024-05-24] MEDS: LEVOTHYROXINE 100 MCG TABLET PO (09:03)
[2024-05-24] MEDS: LORATADINE 10 MG TABLET PO (09:03)
[2024-05-24] MEDS: SENNOSIDES/DOCUSATE TABLET 1 TAB PO (09:03)
[2024-05-24] MEDS: CLOPIDOGREL 75 MG TABLET PO (09:08)
[2024-05-24] MEDS: IPRAT-ALBUT 0.5-2.5 MG/3 ML NEB 1 NEB IH ×2 (11:25→22:06)
[2024-05-24 13:00] LABS: Basophils Absolute Auto 0.03 K/uL (0.00-0.30); Basophils Percent Auto 0.5 % (0.0-3.0); Eosinophils Absolute Auto 0.09 K/uL (0.00-0.50); Eosinophils Percent Auto 1.4 % (0.0-7.0); Hematocrit* 23.6 % (37.0-53.0); Immature Granulocytes Abs Auto 0.01 K/uL (0.00-0.30); Immature Granulocytes Pct Auto 0.2 %; Lymphocytes Percent Auto 7.2 % (20-44); Mean Corpuscular HGB Conc 33 gm/dL (32-36); Mean Corpuscular Hemoglobin 32 pg (26-34); Mean Corpuscular Volume 97 fL (80-100); Monocytes Percent Auto 10.9 % (0.0-11.0); Neutrophils Percent Auto 79.8 % (42.0-72.0); Platelet Count* 148 K/uL (140-440); RDW Coefficient of Variation % 14.3 % (11.5-15.5); Red Blood Count* 2.44 m/uL (4.30-5.90); White Blood Count* 6.23 K/uL (4.50-11.00)
[2024-05-24 13:10] LABS: Hemoglobin* 7.8 gm/dL (13.5-17.5); Slide Review Reflex No
[2024-05-24 14:59] LABS: Chloride* 93 mmol/L (96-114); Potassium* 3.7 mmol/L (3.6-5.1); Sodium* 134 mmol/L (135-149)
[2024-05-24 15:02] LABS: Anion Gap 10 mEq/L (7-15); Blood Urea Nitrogen* 49 mg/dL (7-30); Carbon Dioxide* 31 mmol/L (20-32); Creatinine* 4.7 mg/dL (0.5-1.5); Est. Creatinine Clearance* 12.38; Estimated Glomerular Filt Rate 11 ml/min; Glucose* 110 mg/dL (60-115)
[2024-05-24 15:03] LABS: Calcium* 9.1 mg/dL (8.4-10.6)
[2024-05-24] MEDS: BUDESONIDE 0.5 MG/2ML NEB NEB (18:35)
[2024-05-24 20:08] LABS: C Reactive Protein* 8.5 mg/dL (0.5-1.0)
[2024-05-24 20:43] LABS: Procalcitonin* 0.47 ng/mL (<0.50)
[2024-05-24] MEDS: cefTRIAXone 1 GM in 0.9 % SODIUM CHLORIDE Mini-bag 100 ML IVPB (22:05)
[2024-05-24] MEDS: AZITHROMYCIN 250 MG TABLET PO (22:06)
[2024-05-24] MEDS: INSULIN GLARGINE,HUM.REC.ANLOG 100 UNIT/ML INSULN.PEN 15 UNIT SUBCUT (22:18)
[2024-05-24] MEDS: LIDOCAINE 5% PATCH 1 PATCH TRANSDERMA (22:30)
[2024-05-25] VITALS (11 sets, daily range): BP systolic 94–123; BP diastolic 41–67; PULSE 69–72; O2SAT 87–98
== END 2024-05-25 04:10 | disposition other institution (70) ==
PROVIDERS: Family Medicine; Emergency Provider Student in an Organized Health Care Education/Training Program; PCP Family Medicine
DX: I50.1 Left ventricular failure, unspecified (principal); I26.99 Other pulmonary embolism without acute cor pulmonale; D64.9 Anemia, unspecified
CPT/HCPCS: 36415; 71250; 80048; 80076; 82270; 82570; 82947; 82962; 83880; 84145; 84156; 84484; 85025; 85379; 86140; 86850; 86880; 86900; 86901; 87631; 94640; 96365; 96367; 99285; A9270; J0696

== ENCOUNTER 2024-05-25 04:04 | Outpatient (CLI) | payer MEDICARE, OTHER, SELFPAY | END 2024-05-25 04:05 | disposition home or self-care (01) | LOC: AMB 05-27 07:02 | PROVIDERS: PCP Family Medicine; Visit Provider Family Medicine | DX: N18.6 End stage renal disease (principal) | CPT/HCPCS: A0425; A0429 ==

== ENCOUNTER 2024-07-01 16:33 | Outpatient (CLI) | payer MEDICARE, OTHER, SELFPAY | END 2024-07-01 16:34 | disposition home or self-care (01) | LOC: AMB 07-10 06:46 | PROVIDERS: PCP Family Medicine; Visit Provider Student in an Organized Health Care Education/Training Program | DX: T82.898A Other specified complication of vascular prosthetic devices, implants and grafts, initial encounter (principal) | CPT/HCPCS: A0425; A0427 ==

== ENCOUNTER 2024-07-01 16:58 | Emergency (ER) | payer MEDICARE, OTHER, SELFPAY ==
--- OUTSIDE RECORDS SUMMARY | 2024-07-01 17:01 | XMS_ITS | Continuity of Care Document ---
Author Organization [facility] Address [address] [address] [place] [address] Phone Care Team Providers Care Mix House Operator Name Role Phone Unavailable Unavailable Unavailable Advance Directives Directive Yes / No Effective Date File Name No Information Encounters Encounter Description Practice Location Reason(s) For Visit Diagnoses Date Provider Providers Copied on Encounter [facility], [address] [address], [place], [place], [id number], [place] tel:[phone] [facility] No Information Aug-201 8 No [...]
--- OUTSIDE RECORDS SUMMARY | 2024-07-01 17:01 | XMS_ITS | CONTINUITY OF CARE DOCUMENT ---
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 Genoveva Stephens , [address] [facility] [address] [facility] [address] [facility] VITAL SIGNS Date Observation Value Provider Organization blood pressure, diastolic 64 mm[Hg] Mili Bredemus , [address] [facility] blood pressure, systolic 142 mm[Hg] Mili Bredemus , [address] [facility] blood pressure, site #1 Upper arm Mili Bredemus , [address] [facility] blood pressure, diastolic, right arm 64 mm[Hg] Mili Bredemus , [address] [facility] blood pressure, systolic, right arm 142 mm[Hg] Mili Bredemus , [address] [facility] respiratory rate E&M 22 /min Mili Bredemus , [address] [facility] pulse rate 73 /min Milinahun Sanchezemu s , [address] [facility] temperature E&M 98.3 [degF] Mili brink , [address] [facility] Body Mass Index (Ratio) 31.68 kg/m2 Mili Pizano , [address] [facility] weight E&M 220 [lb_av] Mili Ibanez s , [address] [facility] height E&M 70 [in_i] Mili Ibanez s , [address] [facility] blood pressure, diastolic 72 mm[Hg] Angelica Oswald , [address] [facility] [address] [facility] blood pressure, systolic 160 mm[Hg] Angelica Oswald , [address] [facility] [address] [facility] blood pressure, site #1 Upper arm Angelica Oswald , [address] [facility] blood pressure, diastolic, right arm 72 mm[Hg] Angelica ChenHector , [address] [facility] blood pressure, systolic, right arm 160 mm[Hg] Angelica Beckerather , [address] [facility] [address] [facility] respiratory rate E&M 16 /min Angelica mijares , [address] [facility] [address] [facility] pulse rate 83 /min Angelica Denson her , [address] [facility] temperature E&M 98.4 [degF] Angelica silva , [address] [facility] [address] [facility] Body Mass Index (Ratio) 32.26 kg/m2 Angelica Oswald , [address] [facility] weight E&M 224 [lb_av] Angelica boggs , [address] [place] [address] [address] [facility] height E&M 70 [in_i] Angelica Denson her , [address] [place] [address] [facility] blood pressure, diastolic 75 mm[Hg] Radha De Leon RN RN, [address] [place] [address] [facility] blood pressure, systolic 181 mm[Hg] Radha De Leon RN RN, [address] [place] [address] [facility] respiratory rate E&M 14 /min Radha solano RN RN, [address] [place] [address] [address] [facility] pulse rate 58 /min Radha De Leon RN R N, [address] [place] [address] [address] [facility] blood pressure, site #1 Upper arm Radha De Leon RN RN, [address] [place] [address] [address] [facility] blood pressure, diastolic, right arm 75 mm[Hg] Radha De Leon RN RN, [address] [place] [address] [address] [facility] blood pressure, systolic, right arm 181 mm[Hg] Radha De Leon RN RN, [address] [place] [address] [facility] temperature E&M 98.0 [degF] Radha De Leon R N RN, [address] [place] [address] [facility] Body Mass Index (Ratio) 31.97 kg/m2 Radha De Leon RN RN, [address] [place] [address] [facility] weight E&M 222 [lb_av] Radha De Leon RN R N, [address] [place] [address] [facility] height E&M 70 [in_i] Radha De Leon RN R N, [address] [place] [address] [facility] ALLERGIES Allergy Name Onset Date Reaction Criticality Status Provider Or ganization PRILOSEC OTC diarrhea High Criticality active Genoveva Stephens , [address] [place] [address] [address] [place] [address] [facility] REGLAN gynecomastia High Criticality active Genoveva Stephens [address] [place] [address] [facility] LISINOPRIL GI upset High Criticality active [facility] , [address] [facility] [address] [place] [address] [facility] LIPITOR High Criticality active [facility] , [address] [facility] [address] [place] [address] [facility] RESULTS Date Observation Value Provider Organization Refer ence Range Interpretation Location blood glucose, finger stick 183 Mili Pizano , [address] [facility] HISTORY OF MEDICATION USE Medication Instructions Status Dates Provider Indications Com ments Organization Protonix 40 mg tablet,delayed release (DR/EC) active Mili Pizano , [address] GALZIN 50 MG ORAL CAPSULE active Gen[address] [place] [address] [facility] CVS VITAMIN E 400 UNIT ORAL CAPSULE 1 daily active [address] [place] [address] [facility] VITAMIN D (ERGOCALCIFERO L) [address] UNIT ORAL CAPSULE 1 cap daily active [address] [place] [address] [facility] TYLENOL 8 HOUR 650 MG ORAL TABLET EXTENDED RELEASE PRN active Gen[address]va[address] [place] [address] [facility] SYMBICORT 160-4.5 MCG/ACT INHALATION AEROSOL 2 puffs daily active [address] [place] [address] [facility] SPIRIVA HANDIHALER 18 MCG INHALATION CAPSULE 1 daily active [address] [place] [address] [facility] SINGULAIR 10 MG ORAL TABLET 1 daily active [address] [place] [address] [facility] CVS SENNA 8.6 MG ORAL TABLET 2 tabs in AM 2 tabs in PM daily active [address] [place] [address] [facility] PRAVACHOL 80 MG ORAL TABLET 1 daily active [address] [place] [address] [facility] NOVOLOG FLEXPEN 100 UNIT/ML SUBCUTANEOUS SOLUTION PEN-INJECTOR 3 times daily active [address] [place] [address] [facility] NITROSTAT 0.4 MG SUBLINGUAL TABLET SUBLINGUAL active [address] [place] [address] [facility] MEGARED OMEGA-3 KRILL OIL 500 MG ORAL CAPSULE 1 daily active [address] [place] [address] [facility] ALLERGY RELIEF 10 MG ORAL TABLET 1 daily active [address] [place] [address] [facility] LEVO-T 175 MCG ORAL TABLET 1 at night active [address] [place] [address] [facility] LANTUS 100 UNIT/ML SUBCUTANEOUS SOLUTION active [address] [place] [address] [facility] GAVISCON TABLET CHEWABLE PRN active [address] [place] [address] [facility] FLOVENT HFA 110 MCG/ACT INHALATION INHALER active [address] [place] [address] [facility] FLUNISOLIDE 25 MCG/ACT (0.025%) NASAL SOLUTION PRN active [address] [place] [address] [facility] CO Q 10 100 MG ORAL CAPSULE 1 daily active [address] [place] [address] [facility] DIALYVITE ORAL TABLET active [address] [place] [address] [facility] ASPIRIN ADULT LOW DOSE 81 MG ORAL TABLET DELAYED RELEASE 1 daily active [address] [facility] [address] [facility] ALBUTEROL SULFATE HFA 108 (90 BASE) MCG/ACT INHALATION AEROSOL SOLUTION 1-2 puffs 4 times daily active Genoveva Stephens , [address] [place] [address] [address] [facility] [address] [facility] SOCIAL HISTORY Date Observation Value Provider Organization 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, [address] [place] [address] Drive [address] [facility] social history reviewed E&M reviewed - no changes required Mili Pizano , [address] [place] [address] Drive [address] [facility] 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 Yayo Hooker MD, MD, [address] [place] [address] [address] [facility] social history reviewed E&M reviewed - no changes required Angelica Oswald , [address] [place] [address] [address] [facility] [id number] [place] [address] [facility] 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 Yayo Hooker MD, MD, [address] [place] [address] [address] [facility] social history reviewed E&M reviewed - no changes required Radha De Leon RN RN, [address] [place] [address] [facility] INSURANCE PROVIDERS Payer name Policy type / Coverage type [place] [employer] party ID MEDICARE [id number] COMMERCIAL INSURANCE [id number] 5 HISTORY OF PROCEDURES Procedure Date Procedure Name Provider Procedure Notes Status Organization INJECTION FENTANYL CITRATE 100MCG Yayo Hooker MD, MD, [address] [facility] [address] completed [facility] INFUS NORMAL SALINE SOLUTION 250 CC Yayo Hooker MD, MD, [address] [facility] [address] completed [facility] INJECTION MIDAZOLAM HCL PER 1 MG Yayo Hooker MD, MD, [address] [facility] [address] completed [facility] Wire Yayo Hooker MD, MD, [address] [facility] [address] completed [facility] Balloon Yayo Hooker MD, MD, [address] [facility] [address] completed [facility] Sheath Yayo Hooker MD, MD, [address] [facility] [address] completed [facility] Omnipaque 300 10ml (Medicare [id number]) Yayo Hooker MD, MD, [address] [facility] [address] completed [facility] Angioplasty within including RS&I Yayo Hooker MD, MD, [address] [place] [address] completed [facility] Fistulagram, Dialysis Yayo Hooker MD, MD, [address] [facility] [address] completed [facility] Antibiotic-No Order Yayo Hooker MD, MD, [address] [facility] [address] completed [facility] Quailty Measures all negative Yayo Hooker MD, MD, [address] [facility] [address] completed [facility] SNOMED-CT:HISTORICAL PNEUMOCOCCAL VACCINATION Yayo Hooker MD, MD, [address] [facility] [address] completed [facility] SNOMED-CT:PATIENT ENCOUNTER Yayo Hooker MD, MD, [address] [facility] [address] completed [facility] SNOMED-CT: [id number] Current Medications Documented Yayo Hooker MD, MD, [address] [facility] [address] completed [facility] INFUS NORMAL SALINE SOLUTION 250 CC Yayo Hooker MD, MD, [address] [facility] [address] completed [facility] INJECTION MIDAZOLAM HCL PER 1 MG Yayo Hooker MD, MD, [address] [facility] [address] completed [facility] Wire Yayo Hooker MD, MD, [address] [facility] [address] completed [facility] Balloon Yayo Hooker MD, MD, [address] [facility] [address] completed [facility] Sheath Yayo Hooker MD, MD, [address] [facility] [address] completed [facility] Omnipaque-Visipaque Yayo Hooker MD, MD, [address] [facility] [address] 20 ml completed [facility] Angioplasty within including RS&I Yayo Hooker MD, MD, [address] [facility] [address] completed [facility] Fistulagram, Dialysis Yayo Hooker MD, MD, [address] [place] [address] completed [facility] Antibiotic-No Order Yayo Hooker MD, MD, [address] [facility] [address] completed [facility] Quailty Measures all negative Yayo Hooker MD, MD, [address] [facility] [address] completed [facility] SNOMED-CT:HISTORICAL PNEUMOCOCCAL VACCINATION Yayo Hooker MD, MD, [address] [facility] [address] completed [facility] SNOMED-CT:PATIENT ENCOUNTER Yayo Hooker MD, MD, [address] [facility] [address] completed [facility] SNOMED-CT: [id number] Current Medications Documented Yayo Hooker MD, MD, [address] [facility] [address] completed [facility] INFUS NORMAL SALINE SOLUTION 250 CC Yayo Hooker MD, MD, [address] [facility] [address] completed [facility] INJECTION MIDAZOLAM HCL PER 1 MG Yayo Hooker MD, MD, [address] [facility] [address] completed [facility] INJECTION FENTANYL CITRATE 100MCG Yayo Hooker MD, MD, [address] [facility] [address] completed [facility] Wire Yayo Hooker MD, MD, [address] [facility] [address] completed [facility] Balloon Yayo Hooker MD, MD, [address] [facility] [address] completed [facility] Sheath Yayo Hooker MD, MD, [address] [place] [address] completed [facility] Omnipaque-Visipaque Yayo Hooker MD, MD, [address] [facility] [address] 20 ml completed [facility] Angioplasty within including RS&I Yayo Hooker MD, MD, [address] [facility] [address] completed [facility] Fistulagram, Dialysis Yayo Hooker MD, MD, [address] [place] [address] completed [facility] Antibiotic-No Order Yayo Hooker MD, MD, [address] [facility] [address] completed [facility] Quailty Measures all negative Yayo Hooker MD, MD, [address] [facility] [address] completed [facility] SNOMED-CT:HISTORICAL PNEUMOCOCCAL VACCINATION Yayo Hooker MD, MD, [address] [place] [address] completed [facility] SNOMED-CT:PATIENT ENCOUNTER Yayo Hooker MD, MD, [address] [facility] [address] completed [facility]
--- OUTSIDE RECORDS SUMMARY | 2024-07-01 17:01 | XMS_ITS ---
Demographics Address [address] [place] [address] Home Phone [phone] Preferred Language en Marital Status Mu-Ism Affiliation Unknown Race White Ethnic Group Not or Lati no Author Name [facility] Address [address] [place] [id number] Phone [phone] Organization [facility] e, NA DOCUMENT DISCLAIMER Multiple document versions may exist, please be sure you review the latest version. 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 [...] 03, 2024 Active Mircera During Dialysis, Every 4 weeks 75 mcg Intravenous - push June 14, 2024 June 13, 2025 Discontinued Home Medications Medication Instructions Dosage Route Start [...] capsule ORAL January 07, 2023 Active Dialyvite [id number]-ama-mg Take by mouth every evening with meals 1 tablet ORAL January 07, 2023 Active floradix Unknown January 11, 2024 Active hydrocortisone 2.5% Apply to affected area twice a day as needed TOPICAL January 07, 2023 Active iron 5mg Unknown January 11, 2024 Active Levo-T 175 mcg Take by mouth once a day 1 tablet ORAL October 29, 2020 Active methyl salicylate-menth ol 15-10% Apply to affected area three times a day as needed for pain TOPICAL January 07, 2023 Active midodrine 10 mg Take by mouth as directed 1 tablet ORAL June 20, 2024 Active montelukast 10 mg Take by mouth every night 1 tablet ORAL June 10, 2024 Active nitroglycer[address] 0[address] under tongue [...] zinc 50mg Unknown January 11, 2024 Active Lantus U-100 Insulin 100 unit/mL Inject subcutaneously every evening 18 unit SUBCUTANEOUS June 10, 2024 Discontinued MegaRed [place]-3 Krill Oil 1,000-230-60 mg Take by mouth once a day 1 capsule ORAL June 10, 2024 Discontinued midodrine 10 mg ORAL June 10, 2024 June 20, 2024 Discontinued VITAL SIGNS Post-Treatment Vital Signs Vital Sign Value Date / Time Blood Pressure-sitting 161/70 mmHg June 092024 11:46 AM Heart Rate 73 beats per minute July 01, 2024 11:46 AM Respiratory Rate 16 breaths per minute June 092024 11:46 AM Temperature 97.8 deg. F July 01, 2024 11:46 AM Weight Vital Sign Value Date / Time Estimated Dry Weight 87.5 kg June 20, 2024 11:59 PM Pre-Dialysis 89.60 kg July 01, 2024 11:46 AM Post-Dialysis 88.00 kg July 01, 2024 11:46 AM Other Other Value Date / Time Height 183 cm October 02, 2023 1 2:00 AM Body Mass Index 26.13 kg/m2 June 17, 2024 04:41 PM [facility] LAB RESULTS Hematology Result Type Result Value Relevant Referen ce Range Interpretation Date Folate, Serum > 24.0 ng/mL No Reference Ran ge Provided - October 05, 2023 Platelets 105 1000/mcL 130 - 400 1000/mcL Low 2023 WBC (No Diff) 5.55 1000/mcL 4.80 - 10.80 1000/mcL - January 13, 2024 Neutrophils 68.2 % 40.0 - 75.0 % - January 13, 2024 TIBC 192 mcg/dL 185 - 515 mcg/dL - January UIBC (Calc) 63 mcg/dL 155 - 355 mcg/dL Low January 13, 2024 Ferritin 1228 ng/mL 22 - 322 ng/mL High January 13, 2024 Transferrin Sat. (Calc) 67 % 20 - 55 % High January 13, 2024 Transferrin Sat. (Calc) 62 % 20 - 55 % High February 09 UIBC (Calc) 73 mcg/dL 155 - 355 mcg/dL Low Febemb er 2023 TIBC 191 mcg/dL 185 - 515 mcg/dL - e 2023 WBC (No Diff) 6.31 1000/mcL 4.80 - 10.80 1000/mcL - February 10, 2024 Neutrophils 70.7 % 40.0 - 75.0 % - February 10, 2024 Platelets 109 1000/mcL 130 - 400 1000/mcL Low Feb WBC (No Diff) 5.42 1000/mcL 4.80 - 10.80 1000/mcL - March 09, 2024 Neutrophils 68.0 % 40.0 - 75.0 % - March UIBC (Calc) 81 mcg/dL 155 - 355 mcg/dL Low March 09, 2024 TIBC 184 mcg/dL 185 - 515 mcg/dL Low March 09, 2024 Transferrin Sat. (Calc) 56 % 20 - 55 % High March 09, 2024 Platelets 115 1000/mcL 130 - 400 1000/mcL Low 2023 Hemoglobin x 3 28.5 % 42.0 [...] 154 1000/mcL 130 - 400 1000/mcL - Nove mb2023 Hemoglobin x 3 28.2 % 42.0 - [...] Low Novembe r 2023 Hemoglobin x 3 26.1 % 42.0 - 54.0 % Low Novembe r 2023 MCH 31.1 pg 27.0 - 31.0 pg High May WBC (No Diff) 5.70 1000/mcL 4.80 - 10.80 1000/mcL - May 11, 2024 Platelets 177 1000/mcL 130 - 400 1000/mcL - Dece 2023 Hemoglobin x 3 25.8 % 42.0 - 54.0 % Low Decembe r 2023 RDW 13.9 % 11.5 - 14.5 % - May MCHC 33.5 g/dL 30.0 - 36.0 g/dL - May 11, 2024 Neutrophils 75.2 % 40.0 - 75.0 % [...] 122 mcg/dL 155 - 355 mcg/dL Low [facility]2023 Transferrin Sat. (Calc) 39 % 20 - 55 % - May 11 Hemoglobin x 3 24.9 % 42.0 - 54.0 % [facility] Hemoglobin x 3 24.6 % 42.0 - 54.0 % Low June 10, 2024 HGB 8.2 g/dL 14.0 - 18.0 g/dL Low June 10, 2024 Iron 81 mcg/dL 45 - 160 mcg/dL - June UIBC (Calc) 127 mcg/dL 155 - 355 mcg/dL Low June 15, 2024 TIBC 208 mcg/dL 185 - 515 mcg/dL - June 15, 2024 Transferrin Sat. (Calc) 39 % 20 - 55 % - June 15, 2024 Platelets 191 1000/mcL 130 - 400 1000/mcL - 2024 Hemoglobin x 3 24.6 % 42.0 - 54.0 % Low June 15, 2024 HGB 8.2 g/dL 14.0 - 18.0 g/dL Low June 15, 2024 RDW 15.7 % 11.5 - 14.5 % High June 15, 2024 MCHC 34.7 g/dL 30.0 - 36.0 g/dL - June 15, 2024 MCH 32.9 pg 27.0 - 31.0 pg High June Basophils 0.3 % 0.0 - 1.5 % - June 15 025 Eosinophil 4.1 % 0.0 - 7.0 % - June 15 025 Monocytes 8.3 % 3.0 - 10.0 % - June 15, 2024 Lymphocytes 11.9 % 19.0 - 48.0 % Low June HCT 23.6 % 42.0 - 52.0 % Low June 15, 2024 RBC 2.49 mill/mcL 4.70 - 6.10 mill/mcL Low June 15, 2024 WBC (No Diff) 5.77 1000/mcL 4.80 - 10.80 1000/mcL - June 15, 2024 COURTNEY 4.9 % 0.0 - 4.0 % High June 15 025 Neutrophils 70.5 % 40.0 - 75.0 % - June Hemoglobin x 3 24.0 % 42.0 - 54.0 % Low June 22, 2024 HGB 8.0 g/dL 14.0 - 18.0 g/dL Low June 22, 2024 HGB 8.2 g/dL 14.0 - 18.0 g/dL Low June 29, 2024 Hemoglobin x 3 24.6 % 42.0 - 54.0 % Low June 29, 2024 Metabolic/Renal Result Type Result Value Relevant Referen ce Range Interpretation Date Vitamin B12 844 pg/mL 211 - 911 pg/mL - September URR, Calc 73 % 65 - 80 % - April 13 024 BUN, Post 22 mg/dL 6 - 19 [...] 13, 2024 BUN/Creat Ratio 17.1 10.0 - 20.0 - May 11, 2024 Creatinine, Serum 5.32 [...] 65 - 80 % - May 11, BUN, Post 26 mg/dL 6 - 19 mg/dL High May 11, 2024 Chloride 96 mEq/L 96 - 108 mEq/L - June Bicarbonate 25 mEq/L 20 - 31 mEq/L - June BUN 77 mg/dL 6 - 19 mg/dL High June 15, 2024 Creatinine, Serum 5.79 mg/dL 0.60 - 1.30 mg/dL High June 15, 2024 BUN/Creat Ratio 13.3 10.0 - 20.0 - June 15, 2024 Sodium 135 mEq/L 136 - 145 mEq/L Low June Potassium 3.8 mEq/L 3.5 - 5.1 mEq/L - June URR, Calc 65 % 65 - 80 % - June 15 25 BUN, Post 27 mg/dL 6 - 19 mg/dL High June 15, 2024 URR, Calc 71 % 65 - 80 % - June 20 25 BUN 76 mg/dL 6 - 19 mg/dL High June 20, 2024 BUN, Post 22 mg/dL 6 - 19 mg/dL High June 20, 2024 HD Adequacy Result Type Result Value Relevant Referen ce Range Interpretation Date Krt/V 0.00 No Reference Ran ge Provided - January 13, 2024 Krt/V 0.00 No Reference Ran ge Provided - February 10, 2024 Krt/V 0.00 No Reference Ran ge Provided - March 09, 2024 Krt/V 0.00 No Reference Ran ge Provided - March 11, 2024 wstdKt/V without residual 2.4 No Reference Range Provided - April 13, 2024 eKt/V ([place]) 1.27 No Reference Range Provided - April 13, 2024 Krt/V 0.00 No Reference Ran ge Provided - April 13, 2024 spKt/V Gotch 1.49 No Reference Ran ge Provided - April 13, 2024 wstdKt/V, residual 0.0 No Reference Range Provided - April 13, 2024 wstdKt/V 2.4 No Reference Ran ge Provided - April 13, 2024 spKt/V (Daugirdas II) 1.48 No Reference Range Provided - April 13, 2024 wstdKt/V, residual 0.0 No Reference Range Provided - May 11, 2024 wstdKt/V 2.4 No Reference Ran ge Provided - May 11, 2024 spKt/V Gotch 1.50 No Reference Ran ge Provided - May 11, 2024 spKt/V (Daugirdas II) 1.47 No Reference Range Provided - May 11, 2024 wstdKt/V without residual 2.4 No Reference Range Provided - May 11, 2024 Krt/V 0.00 No Reference Ran ge Provided - May 11, 2024 eKt/V ([place]) 1.26 No Reference Range Provided - May 11, 2024 spKt/V (Daugirdas II) 1.19 No Reference Range Provided - June 15, 2024 Krt/V 0.00 No Reference Ran ge Provided - June 15, 2024 wstdKt/V, residual 0.0 No Reference Range Provided - June 15, 2024 spKt/V Gotch 1.20 No Reference Ran ge Provided - June 15, 2024 wstdKt/V 2.1 No Reference Ran ge Provided - June 15, 2024 wstdKt/V without residual 2.1 No Reference Range Provided - June 15, 2024 eKt/V ([place]) 1.02 No Reference Range Provided - June 15, 2024 Krt/V 0.00 No Reference Ran ge Provided - June 20, 2024 spKt/V Gotch 1.43 No Reference Ran ge Provided - June 20, 2024 wstdKt/V without residual 2.4 No Reference Range Provided - June 20, 2024 spKt/V (Daugirdas II) 1.43 No Reference Range Provided - June 20, 2024 wstdKt/V 2.4 No Reference Ran ge Provided - June 20, 2024 wstdKt/V, residual 0.0 No Reference Range Provided - June 20, 2024 eKt/V ([place]) 1.23 No Reference Range Provided - June 20, 2024 Bone/Mineral Result Type Result Value Relevant Referen ce Range Interpretation Date Magnesium 2.0 mg/dL 1.6 - 2.6 mg/dL - October 05, 2023 Vitamin D 25 Hydroxy 67.7 ng/mL 30.0 - 100.0 ng/mL - October 05, 2023 Magnesium 1.9 mg/dL 1.6 - 2.6 mg/dL - October 08 PTH-Intact, Plasma 128 pg/mL 16 - 80 pg/mL High Jan us2023 Magnesium 2.1 mg/dL 1.6 - 2.6 mg/dL - January PTH-Intact, Plasma 143 pg/mL 16 - 80 pg/mL High Feb Magnesium 1.9 mg/dL 1.6 - 2.6 mg/dL - April 13, 2024 Vitamin D 25 Hydroxy 56.9 ng/mL 30.0 - 100.0 ng/mL - April 13, 2024 PTH-Intact, Plasma 135 pg/mL 16 - 80 pg/mL High Apr Calcium, Total 9.5 mg/dL 8.7 - 10.4 mg/dL - 2023 Alkaline Phosphatase 115 U/L 40 - 129 U/L - 2023 Ca x P Product 0 - April Phosphorus 2.4 mg/dL 2.6 - 4.5 mg/dL Low April 13, 2024 Corrected Ca x P Product 23 0 - April 13 Corrected Ca x P Product 0 - May 11 Calcium, Total 9.4 mg/dL 8.7 - 10.4 mg/dL - 2023 Ca x P Product 26 0 - - May Phosphorus 2.8 mg/dL 2.6 - 4.5 mg/dL - May 11, 2024 Calcium, Total 9.8 mg/dL 8.7 - 10.4 mg/dL - 2024 Phosphorus 3.3 mg/dL 2.6 - 4.5 mg/dL - June Ca x P Product 32 0 - June Corrected Ca x P Product 33 0 - June 15, 2024 Liver/Nutrition Result Type Result Value Relevant Referen ce Range Interpretation Date A/G Ratio 1.1 1.0 - 2.0 - April 13 024 Total Protein 7.2 g/dL 6.0 - 8.5 g/dL - 2023 Globulin (Calc) 3.4 g/dL 2.0 - 4.0 g/dL - 2023 Albumin (BCG) 3.8 g/dL 3.5 - 5.2 g/dL - 2023 eNPCR 1.22 No Reference Ran ge Provided - April 13, 2024 eNPCR 1.38 No Reference Ran ge Provided - May 11, 2024 A/G Ratio 1.0 1.0 - 2.0 - May 11 024 Globulin (Calc) 3.8 g/dL 2.0 - 4.0 g/dL - 2023 Albumin (BCG) 3.7 g/dL 3.5 - 5.2 g/dL - 2023 Total Protein 7.5 g/dL 6.0 - 8.5 g/dL - 2023 eNPCR 1.04 No Reference Ran ge Provided - June 15, 2024 Total Protein 7.5 g/dL 6.0 - 8.5 g/dL - June 15, 2024 Albumin (BCG) 3.9 g/dL 3.5 - 5.2 g/dL - June 15, 2024 Globulin (Calc) 3.6 g/dL 2.0 - 4.0 g/dL - 2024 A/G Ratio 1.1 1.0 - 2.0 - June 15 eNPCR 0.96 No Reference Ran ge Provided - June 20, 2024 Immunochemistry Result Type Result Value Relevant Reference Range Interpre tation HCV s/co ratio 0.06 0.00 - 0.79 - October 05, 2023 Trace Elements Result Type Result Value Relevant Reference Range Interpre tation Date Aluminum 8 mcg/L 0 - 10 mcg/L [...] (HBsAg) Negative No Reference Range Provided - June 15, 2024 DIALYSIS PRESCRIPTION Conventional Hemodialysis Data Element Value Order Date/Time June 20, 2024 Frequency 3X Week Treatment Days MonWedFri Dialyzer 180NRe Optiflux Treatment Time (Total Minutes) 210 min Blood Flow Rate (mL/min) 450 mL/min Dialysate Flow Rate Manual 800 Estimated Dry Weight 87.5 kg Dialysate Concentrate 3.0 K, 2.5 Ca, [...] March 23, 2023 0.5 mL Intramuscular Completed [employer]-250ok COVID-19 Vac cine, Bivalent, Booster March 17, [...] (mL/min) Dialysate Dialyzer Dialysis Access Meds Admin 2024 Weight 91.70 kg Weight 89.40 kg 03:30:00 400 3.0 K, 2.5 Ca, 1.0 Mg, 100 Dextrose (G3251) 180nre Optifl ux Blood Pressure-sitting 163/63 mmHg Blood Pressure-sit ting 152/78 mmHg Heart Rate 77 beats per minute Heart Rate 75 beats per minute Respiratory Rate 15 breaths per minute Respiratory Rate 16 breaths per minute Temperature 97.9 deg. F Temperature 97.8 deg. F June 29, 2024 Weight 90.70 kg Weight 88.30 kg 03:27:00 450 3.0 K, 2.5 Ca, 1.0 Mg, 100 Dextrose (G3251) 180nre Optiflux Hemodialysis-AV Fistula-Standard, Left Forearm, Other/Unknown 1.3 ML difelikefalin 0.05 MG/ML Injection [Korsuva]; 0.9mL,Intravenous - push Blood Pressure-sitting 138/62 mmHg Blood Pressure-sit ting 127/69 mmHg Heart Rate 80 beats per minute Heart Rate 70 beats per minute Respiratory Rate 16 breaths per minute Respiratory Rate 16 breaths per minute Temperature 98.0 deg. F Temperature 97.8 deg. F July 01, 2024 Weight 89.60 kg Weight 88.00 kg 03:30:00 450 3.0 K, 2.5 Ca, 1.0 Mg, 100 Dextrose (G3251) 180nre Optiflux Hemodialysis-AV Fistula-Standard, Left Forearm, Other/Unknown 1.3 ML difelikefalin 0.05 MG/ML Injection [Korsuva]; 0.9mL,Intravenous - push Blood Pressure-sitting 143/77 mmHg Blood Pressure-sit ting 161/70 mmHg Heart Rate 80 beats per minute Heart Rate 73 beats per minute Respiratory Rate 18 breaths per minute Respiratory Rate 16 breaths per minute Temperature 97.8 deg. F Temperature 97.8 deg. F
--- OUTSIDE RECORDS SUMMARY | 2024-07-01 17:02 | XMS_ITS | Encounter Summary ---
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 Role Phone RODRÍGUEZ MATHEWS Primary Care [...] Blanchard's Name Patient's Relationship to Policy Blanchard [facility] MCR (WNR) MEDICARE ADVANTAGE [facility] (WNR) Jun 08, 2023 [id number] JANETTEVannesa SHERYL PATIENT MEDICARE (WNR) MEDICARE (M) RR PART A Feb 06, 2003 RR PART A [id number] MIKMOLLYRUDDY GranadoARD PATIENT MEDICARE (WNR) MEDICARE (M) RR PART B Feb 06, 2003 RR PART B [id number] JANETTERUDDY GranadoARD PATIENT MEDICARE PART D (WNR) MEDICARE (M) PART D Jun 08, 2022 PART D [id number] JANETTEVannesaSHERYL PATIENT [employer] MEDICARE SECONDARY (NO B EXC) UPREH S Jun 08, 2009 [id number] SHERYL SERRANO PATIENT Selected Encounter This section includes the information on record at [place] for the Encounter. Date/Time Encounter Type Encounter Description Reason Provider Source Jun 20, 2024 12:30 PM NQHP OL DIG ASSMT&MGMT 5-10 CLINICAL PHARMACY ICD-10-CM I25.10 [facility] [address] [facility] coronary artery w/o ang pctrs PIOTR BOOTHE IHMarika Encounter Template Text not used by [place] Assessments - Encounter Diagnoses This section includes the primary and secondary diagnoses documented for the Encounter. Date/Time Primary/Secondary Diagnosis Diagnosis Name Provider Source Jun 20, 2024 12:43 PM PRIMARY Aths[facility] heart disease of [facility] [place] coronary artery w/o PIOTR [facility] Jun 20, 2024 12:43 PM SECONDARY Peripheral vascular disease, unspecified PIOTR BOOTHE [facility] Plan of Treatment: Future Appointments (+ 6 months) and Future Tests (+/- 45 days) The Plan of Treatment section includes future care activities for the patient from all [place] [facility]fae[facility]. This section includes future appointments and [...] 01:00 PM AMBULATORY - REHAB MEDICIN E [facility] Social History: Smoking Status (Most current) and Tobacco Use (All prior to encounter date) This section includes the most current, and the historical, smoking and tobacco- related health factors from the [place] facility where the Encounter took place. Current Smoking Status This section includes the most current smoking, or tobacco-related health factor, from the [place] facility where the Encounter took place. Date/Time Current Smoking Status Comment Facil ity Dec 31, 2023 01:30 PM VA-TOBACCO FORMER USER [facility] Tobacco Use History This section includes a history of the smoking, or tobacco-related health factors, that were collected on or before the date of the Encounter. The data comes from the [place] facility where the Encounter took place. Date/Time Smoking Status/Tobacco Use Comment F acility Dec 31, 2023 01:30 PM VA-TOBACCO QUIT 15 YRS OR MORE [facility] Dec 18, 2022 01:00 PM VA-TOBACCO FORMER USER [facility] Dec 18, 2022 01:00 PM VA-TOBACCO QUIT 15 YRS OR MORE [facility] November 05, 2021 10:00 AM VA-TOBACCO FORMER USER [facility] November 05, 2021 10:00 AM VA-TOBACCO QUIT 15 YRS OR MORE [facility] Dec 10, 2018 12:57 PM VA-TOBACCO FORMER USER [facility] Dec 10, 2018 12:57 PM VA-TOBACCO QUIT 15 YRS OR MORE [facility] Feb 25, 2018 12:23 PM VA-TOBACCO FORMER USER [facility] Feb 25, 2018 12:23 PM VA-TOBACCO QUIT 15 YRS OR MORE [facility] Apr 10, 2015 02:55 PM FORMER TOBACCO USER 7Y OR GREATE R [facility] Apr 27, 2014 10:17 AM FORMER TOBACCO USER 7Y OR GREATE R [facility] Jun 18, 2006 07:23 AM FORMER TOBACCO USER 7Y OR GREATE R [facility] Advance Directives: All historical and [...] May 23, 2003 ADVANCE DIRECTIVE [facility] Encounter Notes: All associated encounter [...] BOOTHE Pharm.D. Signed: 06/20/2024 12:43 ANGIE BOOTHE [facility]
--- OUTSIDE RECORDS SUMMARY | 2024-07-01 17:02 | XMS_ITS | Encounter Summary ---
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 Role Phone RODRÍGUEZ MATHEWS Primary Care [...] Patient's Relationship to Policy Blanchard [facility] (WNR) MEDICARE ADVANTAGE [facility] (WNR) Jun 08, 2023 [id number] SHERYL SERRANO PATIENT MEDICARE (WNR) MEDICARE (M) RR PART A Feb 06, 2003 RR PART A [id number] [phone] SHERYL SERRANO PATIENT MEDICARE (WNR) MEDICARE (M) RR PART B Feb 06, 2003 RR PART B [id number] SHERYL SERRANO PATIENT MEDICARE PART D (WNR) MEDICARE (M) PART D Jun 08, 2022 PART D [id number] SHERYL SRERANO PATIENT [employer] MEDICARE SECONDARY (NO B EXC) UPREH S Jun 08, 2009 [id number] SHERYL SERRANO PATIENT Selected Encounter This section includes the information on [place] at [place] for the Encounter. Date/Time Encounter Type Encounter Description Reason Pro vider Source Jun 20, 2024 11:52 AM Outpatient Encounter [facility] I[facility] Encounter Template Text not used by [place] [...] 01:00 PM AMBULATORY - REHAB MEDICIN E [facility] Social History: Smoking Status (Most [...] 31, 2023 01:30 PM VA-TOBACCO FORMER USER [facility] Tobacco Use History This section includes a history of the smoking, or tobacco-related health factors, that were collected on or before the date of the Encounter. The data comes from the [place] facility where the Encounter took place. Date/Time Smoking Status/Tobacco Use Comment F acility Dec 31, 2023 01:30 PM VA-TOBACCO QUIT 15 YRS OR MORE [facility] Dec 18, 2022 01:00 PM VA-TOBACCO FORMER USER [facility] Dec 18, 2022 01:00 PM VA-TOBACCO QUIT 15 YRS OR MORE [facility] November 05, 2021 10:00 AM VA-TOBACCO FORMER USER [facility] November 05, 2021 10:00 AM VA-TOBACCO QUIT 15 YRS OR MORE [facility] Dec 10, 2018 12:57 PM VA-TOBACCO FORMER USER [facility] Dec 10, 2018 12:57 PM VA-TOBACCO QUIT 15 YRS OR MORE [facility] Feb 25, 2018 12:23 PM VA-TOBACCO FORMER USER [facility] Feb 25, 2018 12:23 PM VA-TOBACCO QUIT 15 YRS OR MORE [facility] Apr 10, 2015 02:55 PM FORMER TOBACCO USER 7Y OR GREATE R [facility] Apr 27, 2014 10:17 AM FORMER TOBACCO USER 7Y OR GREATE R [facility] Jun 18, 2006 07:23 AM FORMER TOBACCO USER 7Y OR GREATE R [facility] Advance Directives: All historical and [...] May 23, 2003 ADVANCE DIRECTIVE LORRIEHEIDIMarika [facility] Encounter Notes: All associated encounter notes This section contains the clinical notes associated to the Encounter. Date/Time Encounter Note(s) Provider Source Jun 20, 2024 11:52 AM PHARMACY NOTE: LOCAL TITLE: PHARMACY NON [place] CARE MEDICATIONS STANDARD TITLE: PHARMACY NOTE DATE OF NOTE: JUN 20, 2024@11:52 ENTRY DATE: JUN 20, 2024@11:52:19 AUTHOR: TYSON LEONG EXP COSIGNER: URGENCY: STATUS: COMPLETED [facility] RECEIVED electronic prescription(s) (eRX(s)) from NON-[place] Provider: Dr. Tran Date eRX received: Jun Outside (NON-[place]) provider not authorized to write for prescription(s) through [place] pharmacy. Prescription request REDIRECTED via FAX to one of the following for review: [x][facility] (Dual) Care [ ]Other: eRx Prescription Information: 1. [id number] midodrine 10 mg tablet ANA TRAN 06/20/24 N A eRx Qty: 90 eRx # of Refills: 3 eRx Days Supply: SIG: Take 1 tablet by mouth as directed take 1 tablet before dialysis and 1 tablet after dialysis on dialysis days, pre for hypotension other days /katey/ TYSON LEONG PHARMACIST Signed: 06/20/2024 11:52 TYSON LEONG [facility]
--- OUTSIDE RECORDS SUMMARY | 2024-07-01 17:02 | XMS_ITS | Data Portability ---
Author Organization [facility], [facility] Address [address] [place] [address] Care Team Providers Care Certified Fire Investigator Name Role Phone DANO SANCHEZ Primary Care Provider Assessment Encounter Date Assessment Date Assessment LastModified by Organization Details LastModified Time 11/15/2020 11/15/2020 Patient here for TOV and failed TOV and declined to have another cathether put in. Patient reports going for dialysis sessions. [email or web address] Not available 11/15/2020 13:42:00 Plan of Treatment Reminders Order Date Submit Date Provider Last Modified By Organization Details Last Modified Time Details Appointments None recorded. Lab culture, urine 2020 021 [facility], [address] [facility], [place], [address], 10:10:11 Referral None recorded. Procedures None recorded. Surgeries None recorded. Imaging None recorded. Medication Orders Levaquin 250 mg tablet 2020 021 [email or web address] [id number], [address] [place], [place], [phone], 12:23:07 Cipro 500 mg tablet 2020 021 [email or web address] [id number], [address] [place], [place], [phone], 12:21:55 Patient TargetsNo targets recorded. Patient Instructions Encounter Date Encounter Id Patient Instructions Last Modified By Organization Details Last Modified Time 11/15/2020 [id number] Patient is to follow up with provider. [email or web address] Not available 11/15/2020 17:00:25 Reason for Referral None Reported. Results Created Date Observation Date Name Description Value Unit Range Abnormal Flag Note LastModifiedBy Organization Detail LastModifiedTime 10/31/19 21 10/30/2020 cultu re, urine final report Microb iology result s abnormal SOURC E Void KNOWN ALLER GIES Lipit or lisin opril metoc lopra mide omepr azole Herlinda n TREAT MENT n/a MEDIA PLATE D AT: Media plate d on 2020 @ 5:00 PM COLON Y COUNT >100, 000 cfu/m l RESUL T Esche chiquita a coli (Isol ate 1) Sensi tivit y [facility] sis [place] te 1 ----- ----- ----- ----- ----- ----- ----- - AMOX/ K CLAV <=8/4 *S AMP/S ULBAC GAYTAN >16/8 R AMPIC ILLIN >16 R AZTRE ONAM <=4*S CEFAZ PHAM <=2*S CEFTA ZIDIM E <=1*S CEFTR IAXON E <=1*S CEFUR OXIME <=4*S CIPRO FLOXA MADAI <=1*S LEVOF LOXAC IN <=2*S NITRO FURAN TOIN <=32* S PIP/T AZO <=16* S TETRA CYCLI NE <=4*S TRIME TH/BLANK LFA <=2/3 8*S TRIME THOPR IM <=8*S Orga nisms that are susce ptibl e to tetra cycli ne are gener ally also susce ptibl e to doxyc yclin e and minoc yclin e. Any subst ituti on of drugs which have not been teste d for sensi tivit y shoul d be consi dered based on appro amanda usage of the drugs . Infor matio n on doxyc yclin e and minoc yclin e can be found in the Physi collin' s Desk [facility]. S= Susce ptibl e;I= Inter media te;R= Resis tant; ESBL= Resis tance due to confi rmed ESBL Not Available [facility] [address] [facility] [address], [place], [address], 11/01/2020 10:10:11 10/30/19 21 10/18/2020 CT, abdom en + pelvi s, w/ contr ast No observ ation record ed. [email or web address] Not Available 2020 09:31:35 Result Notes None recorded. Problems Name Problem SNOMED Code Status Onset Date Resolution Date Notes Provider Name and Address Organization Details Recorded Time Blood in urine [id number] Active 021 Marvin Robbins MD [address] [place] [address],[address], [place], [address], [facility] 10/30/2020 16:27:48 Problem Notes None recorded. Procedures Surgical History Date Name Laterality Status Provider Name and Address Organization Details Recorded Time 12/21/19 21 CystoscopyMale completed Marvin Robbins MD [address] [facility],[address], [place], [address], [facility] 12/20/2020 14:14:08 11/16/19 21 Torre Catheter Insertion completed [facility] 11/15/2020 17:05:13 11/16/19 21 Fill and Pull/Voiding Trial/TOV completed [facility] 11/15/2020 17:05:22 10/31/19 21 CystoscopyMale completed Marvin Robbins MD [address] [facility] [address], [place], [address], [facility] 10/30/2020 17:55:08 Cardiac Surgery completed Marvin Robbins MD [address] [place] [address],[address], [place], [address], [facility] 10/30/2020 16:31:03 Cataract Surgery completed Denny Robbins MD [address] [place] [address],[address], [place], [address], [facility] 10/30/2020 16:31:33 Colonoscopy completed Marvin Robbins MD [address] [facility],[address], [place], [address], [facility] 10/30/2020 16:31:42 Heart Surgery completed Marvin Robbins MD [address] [place] [address],[address], [place], [address], [facility] 10/30/2020 16:31:50 Orthopedic Surgery completed Cris Robbins MD [address] [place] [address],[address], [place], [address], [facility] 10/30/2020 16:31:56 Imaging Results Imaging Date Name Status LastModified by Organiz ation Details LastModified Time 10/18/2020 CT, abdomen + pelvis, w/ contrast completed [email or web address] Information not available 10/29/2020 09:31:35 Procedure Notes None recorded. Medical Equipment None Reported. Allergies Allergen ID Allergen Name Allergen Category Reaction Reaction Severity Criticality Documentation Date Start Date Code Code System Note Provider Name and Address Organization Details Recorded Time [id number] 1991920i2 2824e Lipitor medicatio n Not available Not available Not available 10/30/2020 86173 5 RxNorm Not Available Not Available Not Available [id number] 2824e lisinopri l medicatio n Not available Not available Not available 10/30/2020 19499 RxNorm Not Available Not Available Not Available [id number] [id number] 2824e metoclopr amide Not available Not available Not available Not available 10/30/2020 6915 RxNorm Not Available Not Available Not Available [id number] [id number] 2824e Reglan medicatio n Not available Not available Not available 10/30/2020 9230 RxNorm Not Available Not Available Not Available [id number] 2824e omeprazol e medicatio n Not available Not available Not available 10/30/2020 7646 RxNorm Not Available Not Available Not Available Medications Name Sig Start Date Stop Date Status Note LastModified by Organization Details LastModified Time Gentamicin 80mg/2ml mix gentamici n 80mg with 50mL of sterile water. prep patient with sterile fashion and use 2% lidocaine . Insert 16Fr coude catheteri n to pts bladder and draine urine. Instill Gentamici n mixture in to bladder and clamp for 30 min. Remove clamp and drain gentamici n/sterile water. This should be done every other week. 2021 active Not Available Not Available Not Avai lable fluconazole 100 mg tablet active Not Available Not Available Not Available isosorbide mononitrate ER 30 mg tablet,exte nded release 24 hr active Not Available Not Available Not Available pantoprazol e 40 mg intravenous solution Inject by intraveno us route. active Not Available Not Available No t Available calcium acetate(carmel sphate binders) 667 mg tablet 01/28 completed Not Available Not Available Not Available levofloxaci n 250 mg tablet TAKE 1 TABLET BY MOUTH EVERY DAY 01/28 completed Not Available Not Available Not Available ciprofloxac in 500 mg tablet TAKE 1 TABLET BY MOUTH EVERY 12 HOURS FOR 7 DAYS 01/28 completed Not Available Not Available Not Available sulfamethox azole 800 mg-trimetho prim 160 mg tablet TAKE 1 TABLET BY MOUTH EVERY 12 HOURS FOR 5 DAYS 01/28 completed Not Available Not Available Not Available tramadol 50 mg tablet TAKE 1 TABLET BY MOUTH EVERY 4-6 HOURS NEEDED FOR PAIN active Not Available Not Available No t Available pravastatin 80 mg tablet Take 1 tablet every day by oral route. active Not Available Not Available No t Available Nitrostat 0.[address] by sublingua l route. active Not Available Not Available No t Available Vitamin C 100 mg tablet Take by oral route. active Not Available Not Available No t Available brimonidine 0.2 % eye drops INT 1 GTT SURGICAL EYE BID FOR 7 DAYS 01/28 completed Not Available Not Available Not Available cefuroxime axetil 500 mg tablet TAKE 1 TABLET BY MOUTH ONCE A DAY AFTER DIALYSIS 01/28 completed Not Available Not Available Not Available chlorhexidi ne gluconate 0.12 % mouthwash SWISH AND SPIT 1/2 OUCNE TWICE DAILY FOR 7 DAYS 01/28 completed Not Available Not Available Not Available Co Q-10 active Not Available Not Avail able Not Available levothyroxi ne active Not Available Not Available Not Available niacin active Not Available Not Availa ble Not Available thiamine HCl (vitamin B1) active Not Available Not Available Not Available riboflavin (vitamin B2) active Not Available Not Available Not Available sevelamer carbonate 800 mg tablet Take 1 tablet 3 times a day by oral route. active Not Available Not Available No t Available calcium acetate 667 mg tablet Take by oral route. 01/28 completed Not Available Not Available Not Available aspirin 81 mg capsule Take 1 capsule every day by oral route. active Not Available Not Available No t Available Vitals Date Recorded Body height Provider Name an d Address Organization Details Last Updated DateTime 01/28/2022 182.88 cm Eriberto Yip MD [address] [place] [address],[address], [address] [place] [address], [facility] 01/28/2022 12:21:15 Date Recorded Body weight Provider Name an d Address Organization Details Last Updated DateTime 01/28/2022 22642.84 g Eriberto Yip MD [address] [place] [address],[address], [address] [place] [address], [facility] 01/28/2022 12:21:20 Date Recorded Body height Provider Name an d Address Organization Details Last Updated DateTime 10/30/2020 182.88 cm Marvin Robbins MD [address] [place] [address],[address], [address], [facility] 10/30/2020 16:21:03 Date Recorded Body mass index (BMI) Body weight Provider Name and Address Organization Details Last Updated DateTime 10/30/2020 30.4 kg/m2 376361.69 g Marvin Robbins MD [address] [place] [address],[address], [address], [facility] 10/30/2020 16:21:14 Date Recorded Body height Provider Name an d Address Organization Details Last Updated DateTime 11/15/2020 182.88 cm Vidya Akhtar [facility] 11/15/2020 17:16:37 Date Recorded Body height Provider Name an d Address Organization Details Last Updated DateTime 12/20/2020 182.88 cm Ruby Encinas [facility] 12/20/2020 12:22:48 Date Recorded Body mass index (BMI) Body weight Provider Name and Address Organization Details Last Updated DateTime 12/20/2020 30.4 kg/m2 845522.69 g Ruby Encinas [facility] 12/20/2020 12:22:55 Social History Question Answer Notes LastModified by Organizat ion Details LastModified Time Tobacco Smoking Status Former Smoker Marvin Robbins MD [address] [facility] [address], [place], [address], [facility] 10/30/2020 16:29:31 What Is Your Level Of Alcohol Consumption? Occasional Information not available 10/30/2020 What Is Your Level Of Caffeine Consumption? Moderate Information not available 10/30/2020 How Much Tobacco Do You Chew? None Information not available 10/30/2020 Do You Or Have You Ever Used E-cigarettes Or Vape? Never Used Electronic Cigarettes Information not available 10/30/2020 When Did You Quit Smoking? 16+yearssincela violette Information not available 10/30/2020 Race White Information no t available 10/30/2020 Ethnicity Not / Information not available 10/30/2020 Preferred Language Mongolian Information not available 10/30/2020 Marital Status Informatio n not available 10/30/2020 What Was The Date Of Your Most Recent Tobacco Screening? 01/28/2022 [email or web address] Information not available 01/28/2022 Do You Or Have You Ever Used Smokeless Tobacco? Never Used Smokeless Tobacco Information not available 10/30/2020 How Much Tobacco Do You Smoke? No Information not available 10/30/2020 How Many Years Have You Smoked Tobacco? 20 Information not available 10/30/2020 Sex: Unknown Functional Status None recorded. Mental Status None recorded. Family History Relationship Description Onset Age of this Age Resolved Age Notes LastModified by Organization Details LastModified Time Brother Family history of malignant neoplasm lsitnikova Not available 10/30 16:28:52 Brother Family history of diabetes mellitus lsitnikova Not available 10/30 16:29:07 Brother Family history of cardiac disorder lsitnikova Not available 10/30 16:29:20 Mother Family history of malignant neoplasm lsitnikova Not available 10/30 16:28:52 Medical History Condition Response High Blood Pressure Y Lung Disease Y Diabetes Y High Cholesterol Y Heart Disease Y Immunizations Vaccine Type Date Status Note Provider Moreno persaud and Address Organization Details Recorded Time Pneumococcal conjugate PCV 13 5 completed Marvin Robbins MD [address] [facility],[address], [place], [address], [facility] 10/30/2020 16:27:27 Past Encounters Encounter ID Performer Location Encounter Start Date Encounter Closed Date Diagnosis/Indication Diagnosis SNOMED-CT Code Diagnosis ICD10 Code Diagnosis Note [id number] MD RICK [facility] [address] [place] [address] 10/30/2020 15:45:07 11/01/2020 12:51:51 Acute cystitis 91963975 N30.01 Voiding trial in 3 weeks Pyocystis 177349502 N30. 80 Torre for 2-3 weeks for drainagewo uld consider a voiding trial and cysto in 2-3 weeksAbx for pyocystis [id number] MD RICK [facility] [address] [place] [address] 11/15/2020 12:21:28 11/19/2020 11:48:02 Retention of urine 641495125 R33.9 [id number] MD RICK [facility] [address] [place] [address] 12/20/2020 11:53:14 12/21/2020 15:08:02 Blood in urine 34594979 R31.9 H/o pyocystisC IC at the time of dialysisf/ u in 3 months [id number] MD RICK [facility] [address] [place] [address] 01/28/2022 11:55:03 01/31/2022 10:21:56 Retention of urine 855294250 R33.9 1. Urinary retention- has large capacity bladder- makes very little urine- continue weekly catheteriz ation (with Gentamicin bladder washing)- Follow-up in 1 year Cystitis 62632189 N30.90 2. Recurrent cystitis- continue Gentamicin bladder instillati on / washings with weekly catheteriz ation- if he has symptoms (Fever, bladder pain, hematuria, or mental status changes) recommend checking a UCx and treating UTI Health Concerns Section Related Observation LastModified by Organization Detai ls LastModified Time None Recorded Concern Status LastModified by Organization Details LastModified Time None Recorded Advance Directives Directive None Recorded Payers Encounter Date Sequence Insurance Name Policy Number Policy Blanchard Covered Member ID Blanchard Member ID Guarantor Name 10/30/2020 1 MEDICARE B: [facility] MEDICARE Korey Mackay [id number] Korey Mackay 10/30/2020 2 [facility] (MEDICARE SUPPLEMENT) 61 Korey Mackay [id number] Korey Mackay 11/15/2020 1 MEDICARE B: [facility] MEDICARE Korey Mackay [id number] Korey Mackay 11/15/2020 2 [facility] 61 Korey Chani Mackay [id number] Korey Mackay 12/20/2020 1 MEDICARE B: [facility] MEDICARE Korey Mackay [id number] Korey Mackay 12/20/2020 2 [facility] 61 Korey Mackay [id number] Korey Mackay 01/28/2022 1 MEDICARE B: [facility] MEDICARE Korey Mackay [id number] Korey Mackay 01/28/2022 2 [facility] 61 Korey Mackay [id number] Korey Mackay Notes Date Note Type Note Provider Name and Address Organization Details Recorded Time 10/30/2020 text/html H/p intermittent gross hematuria in the past 3 weeks; on HD for ESRD. According to the patient he does not make urine. He was admitted to the hospital times 2 with elevated PVR ( 500cc). His cysto today showed pus in the bladder under high pressure; could not complete cysto. I placed 16 Fr Torre and irrigate the bladder. Marvin Robbins MD [address] [facility] [address], [place], [address], [facility] 10/30/2020 17:55:38 12/20/2020 text/html H/p intermittent gross hematuria in the past 3 weeks; on HD for ESRD. According to the patient he does not make urine ( 30 cc a day).He was admitted to the hospital times 2 with elevated PVR ( 500cc) and Pyocystis. His cysto today showed normal bladder mucosa; small prostate; failed a voiding trial. Marvin Robbins MD [address] [place] [address],[address], [place], [address], [facility] 12/20/2020 14:15:23 01/28/2022 text/html 81 yo with ESRD (on HD), CAD, DM, HTN, CHLOE - has history of intermittent gross hematuria and retention (PVR - 500 mL) in 2020. He saw Dr. Robbins in October and December 2020. Cystoscopy (12/20/20) revealed a small prostate and normal bladder mucosa. CT Urogram (10/18/20) revealed mildly atrophic kidneys - no renal masses, stones, or filling defects. He reports a history of a large capacity bladder. He was treated for cystitis in October and November - E.coli (R - Amoxicillin and Augmentin) - courses of Bactrim, Levaquin, and Cipro. His was unable to catheterize him. He is on dialysis - makes very little irine01/28/22 - He presents for follow-up on recurrent UTIs and urinary retention. He is straight cathed 1x/week (urine volume = 100-200 mL) with Gentamicin bladder irrigation. He denies symptomatic UTIs. He denies fever/chills, bladder pain, or hematuria.-------- - Eriberto Yip MD [address] [facility] [address], [place], [address], [facility] 01/28/2022 13:29:56
--- OUTSIDE RECORDS SUMMARY | 2024-07-01 17:02 | XMS_ITS ---
Author Organization [facility] Address Unknown Allergies, Adverse Reactions, Alerts Substance Reaction Status Noted Date Resolved Date Lisinopril active 07/06/2006 Lipitor active 07/04/2006 Encounters Encounter Performer Performer Role Encounter Diagnoses Location Date Discharge - Discharged to home or self care - Private home/apt. with no home health services [facility] 02/10/2014 02:30 pm EDT - 03/22/2014 12:15 pm EDT Immunizations Vaccine Date Influenza 03/01/2014 03:45 pm EDT Pneumovax Dose 1 03/19/1994 02:00 am EDT TB 2 Step Mantoux Skin Test 02/25/2014 1 2:00 pm EDT TB 2 Step Mantoux Skin Test 02/12/2014 0 2:00 pm EDT Social History
--- OUTSIDE RECORDS SUMMARY | 2024-07-01 17:03 | XMS_ITS | Encounter Summary ---
Author Organization [facility] Address [address] [facility] [address] [facility] [facility] [address] [place] [address] Care Team Providers Care Fuel Tank Sealer And Tester Name Role Phone Unavailable Primary Care Provider Unavailabl e Encounter Details Date Type Department Care Team (Late st Contact Info) Description 06/29/2024 Orders Only [facility] [place] [address] [facility] [address] [place] [address] Darren Youssef MD [address] [place] [address] Social History Tobacco Use Types Packs/Day Years Used Date Smoking Tobacco: Never Assessed Sex and Gender Information Value Date Recorded Sex Assigned at Not on file Legal Sex Male 7:06 PM EDT Gender Identity Not on file Sexual Orientation Not on file documented as of this encounter Plan of Treatment Not on file documented as of this encounter Procedures Procedure Name Priority Date/Time Associated Diagnosis Comments HEMATOLOGY Routine 06/29/2024 documented in this encounter Results * (ABNORMAL) HEMATOLOGY (06/29/2024) Hemoglobin 8.2(L) 14.0 - 18.0 g/dL [facility] Hemoglobin x 3 24.6(L) 42.0 - 54.0 % [facility] 06/29/2024 06/30/2024 2:1 7 AM HERB COUNSELOR Narrative BERENICE - 06/30/2024 Unless otherwise specified, test(s) performed at: [facility], [address] [place] [address], [place] [address] CLINICAL OB: Rojas Kirkland M.D., Ph.D For any questions, please call customer service at FREQUENCY:OTHER Resulting Agency Comment Specimen source: Blood us Darren Youssef MD LAB BLOOD ORDERABLES Final Re sult [facility] See order comments or contact performing lab Unknown, [place] documented in this encounter Visit Diagnoses Not on filedocumented in this encounter
--- OUTSIDE RECORDS SUMMARY | 2024-07-01 17:03 | XMS_ITS | Encounter Summary ---
Author Organization [facility] Address [address] [facility] [address] [place] [address] Care Team Providers Care Manufacturing Sales Representative Name Role Phone Unavailable Primary Care Provider Unavailabl e Encounter Details Date Type Department Care Team (Late st Contact Info) Description 06/22/2024 Orders Only [facility] [place] [address] [facility] [address] [place] [address] Darren Youssef MD [address] [place] [address] Social History Tobacco Use Types [...] Priority Date/Time Associated Diagnosis Comments HEMATOLOGY Routine 06/22/2024 documented in this encounter Results * (ABNORMAL) HEMATOLOGY (06/22/2024) Hemoglobin 8.0(L) 14.0 - 18.0 g/dL [facility] Hemoglobin x 3 24.0(L) 42.0 - 54.0 % [facility] 06/22/2024 06/23/2024 10: 35 AM SANITATION OFFICER Narrative BERENICE - 06/23/2024 Unless otherwise specified, test(s) performed at: [facility], [address] [place] [address], [place] [address] GRINDER SET UP OPERATOR JIG: Rojas Kirkland M.D., Ph.D For any questions, please call customer service at FREQUENCY:OTHER Resulting Agency Comment Specimen source: Blood us Darren Youssef MD LAB BLOOD ORDERABLES Final Re sult [facility] See order comments or contact performing lab Unknown, [place] documented in this encounter Visit Diagnoses Not on filedocumented in this encounter
--- OUTSIDE RECORDS SUMMARY | 2024-07-01 17:03 | XMS_ITS | Encounter Summary ---
Author Organization [facility] Address [address] [facility] [address] [place] [address] Care Team Providers Care Sprinkling Truck Driver Name Role Phone Unavailable Primary Care Provider Unavailabl e Encounter Details Date Type Department Care Team (Late st Contact Info) Description 06/10/2024 Orders Only [facility] [place] [address] [facility] [address] [place] [address] Darren Youssef MD [address] [place] [address] Social History Tobacco Use Types [...] Priority Date/Time Associated Diagnosis Comments HEMATOLOGY Routine 06/10/2024 documented in this encounter Results * (ABNORMAL) HEMATOLOGY (06/10/2024) Hemoglobin 8.2(L) 14.0 - 18.0 g/dL [facility] Hemoglobin x 3 24.6(L) 42.0 - 54.0 % [facility] 06/10/2024 06/13/2024 10: 40 AM WARDROBE STYLIST Narrative BERENICE - 06/13/2024 Unless otherwise specified, test(s) performed at: [facility], [address] [place] [address], [place] [address] COMPUTER SUPPORT TECHNICIAN: Rojas Kirkland M.D., Ph.D For any questions, please call customer service at FREQUENCY:OTHER Resulting Agency Comment Specimen source: Blood us Darren Youssef MD LAB BLOOD ORDERABLES Final Re sult [facility] See order comments or contact performing lab Unknown, [place] documented in this encounter Visit Diagnoses Not on filedocumented in this encounter
--- OUTSIDE RECORDS SUMMARY | 2024-07-01 17:03 | XMS_ITS ---
Author Organization [facility] ([facility]) Address [address] [place] [address] Care Team Providers Care Solution Manager Name Role Phone Unavailable Unavailable Unavailable Allergies, Adverse Reactions, Alerts Allergy Name Allergy Type Status Severity Reaction(s) Onset Date Inactive Date Treating Clinician Comments HYDROcodone Allergy Active Unknown 2022-06 17:20: 15 Omeprazole Allergy Active Unknown 2022-06 21:24: 12 Metoclopramide Allergy Active Unknown 07-12 21:23: 55 Lisinopril Allergy Active Unknown 2022-06 21:23: 38 Lipitor Allergy Active Unknown 2022-06 21:23: 16 Problems This patient has no known problems. Procedures Procedure Date / Time Performed Performing Clinician Radha ce Details AV Fistula 2023-03-08 05:00:00 Access Site Forearm (Left) Access Use Start Date 2023-05-25 00:00:0 0 DIALYSIS TREATMENT INFORMATION Conventional Hemodialysis Date Type Treatment Start Date Treatment End Date Pre-Treatment Vitals Post-Treatment Vitals Weight Gain BFR DFR Actual UF Dialysis Access October 01, 2023 In-Ce nter Hemod ialys is Treat ment 2023-10-01 T15:50:00. 000Z 2023-10-01 T17:55:02. 000Z BP Sitting (Pre-Dialysis) 119/61 mmHg BP Sitting (Post-D ialysis ) 122/ 68 mmHg BP Standing (Pre-Dialysis) 103/51 mmHg Sitting Heart Rate Post-Dialysis 69 BPM Sitting Heart Rate Pre-Dialysis 70 BPM Temperatu re Post-Dialysis 97 degF Standing Heart Rate Pre-Dialysis 88 BPM Temperature Pre-Dialysis 98.1 degF September 30, 2023 In-Center Hemodialysis Treatment [id number]:26:00.000Z [id number]:59:31.000Z BP Sitting (Pre-Dialysis) 136/71 mmHg BP Sitting (Post-Dialysis) 138/73 mmHg Concurrent Access: falseAV Fistula Forearm (Left) Arterial Sitting Heart Rate Pre-Dialysis 88 BPM Sitting H eart Rate Post-Dialysis 72 BPM Temperature Pre-Dialysis 98.1 degF Temperature Post -Dialysis 98 degF September 28, 2023 In-Center Hemodialysis Treatment [id number]:37:55.000Z 8937-80-37Z37:11:26.000Z BP Sitting (Pre-Dialysis) 125/66 mmHg BP Sitting (Post-Dialysis) 127/74 mmHg Concurrent Access: falseAV Fistula Forearm (Left) Arterial BP Standing (Pre-Dialysis) 103/55 mmHg BP Standing (P ost-Dialysis) 103/51 mmHg Sitting Heart Rate Pre-Dialysis 92 BPM Sitting Heart Rate Post-Dialysis 74 BPM Standing Heart Rate Pre-Dialysis 94 BPM Standing Heart Rate Post-Dialysis 74 BPM Temperature Pre-Dialysis 98.4 degF Temperature Post -Dialysis 98.1 degF September 25, 2023 In-Center Hemodialysis Treatment 9330-42-26J50:24:00.000Z 6529-38-34L58:58:33.000Z BP Sitting (Pre-Dialysis) 137/69 mmHg BP Sitting (Post-Dialysis) 154/80 mmHg Concurrent Access: falseAV Fistula Forearm (Left) Arterial BP Standing (Pre-Dialysis) 109/57 mmHg BP Standing (P ost-Dialysis) 150/71 mmHg Sitting Heart Rate Pre-Dialysis 88 BPM Sitting Heart Rate Post-Dialysis 72 BPM Standing Heart Rate Pre-Dialysis 99 BPM Standing Heart Rate Post-Dialysis 74 BPM Temperature Pre-Dialysis 97.8 degF Temperature Post -Dialysis 97.8 degF September 23, 2023 In-Center Hemodialysis Treatment [id number]:27:00.000Z 9179-63-91Y03:02:39.000Z BP Sitting (Pre-Dialysis) 124/57 mmHg BP Sitting (Post-Dialysis) 115/62 mmHg Concurrent Access: falseAV Fistula Forearm (Left) Arterial Sitting Heart Rate Pre-Dialysis 77 BPM BP Standing (Post-Dialysis) 100/54 mmHg Temperature Pre-Dialysis 97.3 degF Sitting Heart Ra te Post-Dialysis 70 BPM Standing Heart Rate Post-Marlys lysis 71 BPM Temperature Post-Dialysis 97 .6 degF September 21, 2023 In-Center Hemodialysis Treatment [id number]:10:36.000Z 4055-12-56L41:58:01.000Z BP Sitting (Pre-Dialysis) 149/68 mmHg BP Sitting (Post-Dialysis) 133/57 mmHg Concurrent Access: falseAV Fistula Forearm (Left) Arterial BP Standing (Pre-Dialysis) 131/58 mmHg BP Standing (P ost-Dialysis) 108/51 mmHg Sitting Heart Rate Pre-Dialysis 79 BPM Sitting Heart Rate Post-Dialysis 74 BPM Standing Heart Rate Pre-Dialysis 91 BPM Standing Heart Rate Post-Dialysis 72 BPM Temperature Pre-Dialysis 98.1 degF Temperature Post -Dialysis 98.3 degF September 18, 2023 In-Center Hemodialysis Treatment [id number]:22:15.000Z 4513-73-36Z02:55:15.000Z BP Sitting (Pre-Dialysis) 114/61 mmHg BP Sitting (Post-Dialysis) 102/55 mmHg Concurrent Access: falseAV Fistula Forearm (Left) Arterial Sitting Heart Rate Pre-Dialysis 90 BPM Sitting H eart Rate Post-Dialysis 72 BPM Temperature Pre-Dialysis 97 degF Temperature Post -Dialysis 97.6 degF September 16, 2023 In-Center Hemodialysis Treatment [id number]:26:00.000Z 0799-76-79T51:02:03.000Z BP Sitting (Pre-Dialysis) 124/57 mmHg BP Sitting (Post-Dialysis) 121/72 mmHg Concurrent Access: falseAV Fistula Forearm (Left) Arterial BP Standing (Pre-Dialysis) 113/54 mmHg Sitti ng Heart Rate Post-Dialysis 73 BPM Sitting Heart Rate Pre-Dialysis 89 BPM Temperatu re Post-Dialysis 97.6 degF Standing Heart Rate Pre-Dialysis 93 BPM Temperature Pre-Dialysis 97 degF September 14, 2023 In-Center Hemodialysis Treatment [id number]:27:00.000Z 9166-88-14V33:03:29.000Z BP Sitting (Pre-Dialysis) 178/79 mmHg BP Sitting (Post-Dialysis) 148/58 mmHg Concurrent Access: falseAV Fistula Forearm (Left) Arterial Sitting Heart Rate Pre-Dialysis 72 BPM BP Standi ng (Post-Dialysis) 151/83 mmHg Temperature Pre-Dialysis 97 degF Sitting Heart Ra te Post-Dialysis 64 BPM Standing Heart Rate Post-Marlys lysis 71 BPM Temperature Post-Dialysis 97 .8 degF September 11, 2023 In-Center Hemodialysis Treatment [id number]:20:00.000Z [id number]:08:57.000Z BP Sitting (Pre-Dialysis) 139/61 mmHg BP Sitting (Post-Dialysis) 103/60 mmHg Concurrent Access: falseAV Fistula Forearm (Left) Arterial BP Standing (Pre-Dialysis) 111/56 mmHg Sitti ng Heart Rate Post-Dialysis 73 BPM Sitting Heart Rate Pre-Dialysis 80 BPM Temperatu re Post-Dialysis 97.6 degF Standing Heart Rate Pre-Dialysis 91 BPM Temperature Pre-Dialysis 97.8 degF September 09, 2023 In-Center Hemodialysis Treatment [id number]:15:00.000Z 9187-28-13P54:51:23.000Z BP Sitting (Pre-Dialysis) 100/55 mmHg BP Sitting (Post-Dialysis) 143/73 mmHg Concurrent Access: falseAV Fistula Forearm (Left) Arterial Sitting Heart Rate Pre-Dialysis 62 BPM Sitting H eart Rate Post-Dialysis 71 BPM Temperature Pre-Dialysis 98.1 degF Temperature Post -Dialysis 97.8 degF September 07, 2023 In-Center Hemodialysis Treatment 9765-47-06C23:19:00.000Z 0802-54-62R09:54:49.000Z BP Sitting (Pre-Dialysis) 142/66 mmHg BP Sitting (Post-Dialysis) 110/58 mmHg Concurrent Access: falseAV Fistula Forearm (Left) Arterial Sitting Heart Rate Pre-Dialysis 90 BPM Sitting H eart Rate Post-Dialysis 64 BPM Temperature Pre-Dialysis 97 degF Temperature Post -Dialysis 97.8 degF September 04, 2023 In-Center Hemodialysis Treatment [id number]:21:46.000Z 5226-00-69K76:58:42.000Z BP Sitting (Pre-Dialysis) 119/61 mmHg BP Sitting (Post-Dialysis) 115/75 mmHg Concurrent Access: falseAV Fistula Forearm (Left) Arterial Sitting Heart Rate Pre-Dialysis 68 BPM BP Standing (Post-Dialysis) 105/55 mmHg Temperature Pre-Dialysis 97.8 degF Sitting Heart Ra te Post-Dialysis 74 BPM Standing Heart Rate Post-Marlys lysis 80 BPM Temperature Post-Dialysis 98 degF September 02, 2023 In-Center Hemodialysis Treatment [id number]:19:00.000Z 0012-63-27Y90:53:03.000Z BP Sitting (Pre-Dialysis) 127/64 mmHg BP Sitting (Post-Dialysis) 141/72 mmHg Concurrent Access: falseAV Fistula Forearm (Left) Arterial Sitting Heart Rate Pre-Dialysis 91 BPM BP Standi ng (Post-Dialysis) 128/61 mmHg Temperature Pre-Dialysis 98 degF Sitting Heart Ra te Post-Dialysis 72 BPM Standing Heart Rate Post-Marlys lysis 70 BPM Temperature Post-Dialysis 97 .6 degF August 31, 2023 In-Center Hemodialysis Treatment 9020-26-72G26:17:00.000Z 1385-27-62C34:56:17.000Z BP Sitting (Pre-Dialysis) 144/74 mmHg BP Sitting (Post-Dialysis) 118/58 mmHg Concurrent Access: falseAV Fistula Forearm (Left) Arterial BP Standing (Pre-Dialysis) 114/60 mmHg Sitti ng Heart Rate Post-Dialysis 64 BPM Sitting Heart Rate Pre-Dialysis 88 BPM Temperatu re Post-Dialysis 97.8 degF Standing Heart Rate Pre-Dialysis 93 BPM Temperature Pre-Dialysis 98.1 degF August 28, 2023 In-Center Hemodialysis Treatment 7421-39-22Y35:14:00.000Z 0158-14-21G87:48:54.000Z BP Sitting (Pre-Dialysis) 120/67 mmHg BP Sitting (Post-Dialysis) 105/61 mmHg Concurrent Access: falseAV Fistula Forearm (Left) Arterial BP Standing (Pre-Dialysis) 104/51 mmHg BP Standing (P ost-Dialysis) 106/60 mmHg Sitting Heart Rate Pre-Dialysis 83 BPM Sitting Heart Rate Post-Dialysis 69 BPM Standing Heart Rate Pre-Dialysis 95 BPM Standing Heart Rate Post-Dialysis 63 BPM Temperature Pre-Dialysis 97.3 degF Temperature Post -Dialysis 98 degF August 26, 2023 In-Center Hemodialysis Treatment 6553-89-28R02:23:00.000Z 0669-80-14R15:56:23.000Z BP Sitting (Pre-Dialysis) 122/81 mmHg BP Sitting (Post-Dialysis) 133/70 mmHg Concurrent Access: falseAV Fistula Forearm (Left) Arterial BP Standing (Pre-Dialysis) 114/62 mmHg BP Standing (P ost-Dialysis) 104/56 mmHg Sitting Heart Rate Pre-Dialysis 88 BPM Sitting Heart Rate Post-Dialysis 70 BPM Standing Heart Rate Pre-Dialysis 98 BPM Standing Heart Rate Post-Dialysis 80 BPM Temperature Pre-Dialysis 97.5 degF Temperature Post -Dialysis 98 degF August 24, 2023 In-Center Hemodialysis Treatment [id number]:27:00.000Z 0224-22-38S97:01:59.000Z BP Sitting (Pre-Dialysis) 124/63 mmHg BP Sitting (Post-Dialysis) 128/66 mmHg Concurrent Access: falseAV Fistula Forearm (Left) Arterial Sitting Heart Rate Pre-Dialysis 89 BPM BP Standi ng (Post-Dialysis) 120/56 mmHg Temperature Pre-Dialysis 97 degF Sitting Heart Ra te Post-Dialysis 73 BPM Standing Heart Rate Post-Marlys lysis 80 BPM Temperature Post-Dialysis 98 degF August 21, 2023 In-Center Hemodialysis Treatment [id number]:19:00.000Z 4523-41-75Q00:56:13.000Z BP Sitting (Pre-Dialysis) 155/77 mmHg BP Sitting (Post-Dialysis) 130/60 mmHg Concurrent Access: falseAV Fistula Forearm (Left) Arterial BP Standing (Pre-Dialysis) 160/75 mmHg BP Standing (P ost-Dialysis) 114/54 mmHg Sitting Heart Rate Pre-Dialysis 78 BPM Sitting Heart Rate Post-Dialysis 73 BPM Standing Heart Rate Pre-Dialysis 80 BPM Standing Heart Rate Post-Dialysis 73 BPM Temperature Pre-Dialysis 98 degF Temperature Post -Dialysis 98 degF August 19, 2023 In-Center Hemodialysis Treatment [id number]:28:45.000Z 7881-75-51N53:01:30.000Z BP Sitting (Pre-Dialysis) 150/76 mmHg BP Sitting (Post-Dialysis) 138/58 mmHg Concurrent Access: falseAV Fistula Forearm (Left) Arterial BP Standing (Pre-Dialysis) 130/73 mmHg BP Standing (P ost-Dialysis) 124/58 mmHg Sitting Heart Rate Pre-Dialysis 85 BPM Sitting Heart Rate Post-Dialysis 64 BPM Standing Heart Rate Pre-Dialysis 90 BPM Standing Heart Rate Post-Dialysis 60 BPM Temperature Pre-Dialysis 98.2 degF Temperature Post -Dialysis 97.8 degF August 17, 2023 In-Center Hemodialysis Treatment [id number]:21:05.000Z 8806-62-76I02:52:40.000Z BP Sitting (Pre-Dialysis) 139/74 mmHg BP Sitting (Post-Dialysis) 148/84 mmHg Concurrent Access: falseAV Fistula Forearm (Left) Arterial BP Standing (Pre-Dialysis) 129/69 mmHg BP Standing (P ost-Dialysis) 126/60 mmHg Sitting Heart Rate Pre-Dialysis 88 BPM Sitting Heart Rate Post-Dialysis 71 BPM Standing Heart Rate Pre-Dialysis 97 BPM Standing Heart Rate Post-Dialysis 74 BPM Temperature Pre-Dialysis 98.4 degF Temperature Post -Dialysis 98.1 degF August 14, 2023 In-Center Hemodialysis Treatment [id number]:15:40.000Z 3435-45-35R61:47:00.000Z BP Sitting (Pre-Dialysis) 118/66 mmHg BP Sitting (Post-Dialysis) 136/71 mmHg Concurrent Access: falseAV Fistula Forearm (Left) Arterial Sitting Heart Rate Pre-Dialysis 93 BPM Sitting H eart Rate Post-Dialysis 72 BPM Temperature Pre-Dialysis 98.1 degF Temperature Post -Dialysis 98.2 degF August 12, 2023 In-Center Hemodialysis Treatment [id number]:39:00.000Z 9969-13-75Y90:18:02.000Z BP Sitting (Pre-Dialysis) 141/82 mmHg BP Sitting (Post-Dialysis) 135/73 mmHg Concurrent Access: falseAV Fistula Forearm (Left) Arterial BP Standing (Pre-Dialysis) 134/88 mmHg BP Standing (P ost-Dialysis) 118/65 mmHg Sitting Heart Rate Pre-Dialysis 80 BPM Sitting Heart Rate Post-Dialysis 78 BPM Standing Heart Rate Pre-Dialysis 88 BPM Standing Heart Rate Post-Dialysis 71 BPM Temperature Pre-Dialysis 97.8 degF Temperature Post -Dialysis 98 degF August 10, 2023 In-Center Hemodialysis Treatment [id number]:28:19.000Z 9051-38-35J36:18:15.000Z BP Sitting (Pre-Dialysis) 141/81 mmHg BP Sitting (Post-Dialysis) 154/79 mmHg Concurrent Access: falseAV Fistula Forearm (Left) Arterial Sitting Heart Rate Pre-Dialysis 94 BPM BP Standi ng (Post-Dialysis) 141/69 mmHg Temperature Pre-Dialysis 98 degF Sitting Heart Ra te Post-Dialysis 70 BPM Standing Heart Rate Post-Marlys lysis 79 BPM Temperature Post-Dialysis 97 .6 degF August 07, 2023 In-Center Hemodialysis Treatment [id number]:16:00.000Z 3250-30-51Q83:00:11.000Z BP Sitting (Pre-Dialysis) 128/66 mmHg BP Sitting (Post-Dialysis) 170/85 mmHg Concurrent Access: falseAV Fistula Forearm (Left) Arterial Sitting Heart Rate Pre-Dialysis 93 BPM BP Standing (Post-Dialysis) 131/59 mmHg Temperature Pre-Dialysis 97.8 degF Sitting Heart Ra te Post-Dialysis 70 BPM Standing Heart Rate Post-Marlys lysis 80 BPM Temperature Post-Dialysis 97 degF August 05, 2023 In-Center Hemodialysis Treatment [id number]:18:39.000Z [id number]:51:43.000Z BP Sitting (Pre-Dialysis) 149/74 mmHg BP Sitting (Post-Dialysis) 138/58 mmHg Concurrent Access: falseAV Fistula Forearm (Left) Arterial BP Standing (Pre-Dialysis) 148/71 mmHg BP Standing (P ost-Dialysis) 124/58 mmHg Sitting Heart Rate Pre-Dialysis 79 BPM Sitting Heart Rate Post-Dialysis 64 BPM Standing Heart Rate Pre-Dialysis 82 BPM Standing Heart Rate Post-Dialysis 64 BPM Temperature Pre-Dialysis 97.8 degF Temperature Post -Dialysis 97.8 degF August 03, 2023 In-Center Hemodialysis Treatment [id number]:17:00.000Z 6415-75-76O77:50:56.000Z BP Sitting (Pre-Dialysis) 151/71 mmHg BP Sitting (Post-Dialysis) 148/73 mmHg Concurrent Access: falseAV Fistula Forearm (Left) Arterial Sitting Heart Rate Pre-Dialysis 88 BPM BP Standing (Post-Dialysis) 125/66 mmHg Temperature Pre-Dialysis 98.4 degF Sitting Heart Ra te Post-Dialysis 72 BPM Standing Heart Rate Post-Marlys lysis 69 BPM Temperature Post-Dialysis 98 .3 degF July 31, 2023 In-Center Hemodialysis Treatment [id number]:08:21.000Z 0839-84-15O76:44:52.000Z BP Sitting (Pre-Dialysis) 125/71 mmHg BP Sitting (Post-Dialysis) 143/82 mmHg Concurrent Access: falseAV Fistula Forearm (Left) Arterial BP Standing (Pre-Dialysis) 108/55 mmHg BP Standing (P ost-Dialysis) 108/53 mmHg Sitting Heart Rate Pre-Dialysis 89 BPM Sitting Heart Rate Post-Dialysis 71 BPM Standing Heart Rate Pre-Dialysis 93 BPM Standing Heart Rate Post-Dialysis 77 BPM Temperature Pre-Dialysis 98.2 degF Temperature Post -Dialysis 98.2 degF July 29, 2023 In-Center Hemodialysis Treatment [id number]:56:12.000Z 7815-45-35P61:27:42.000Z BP Sitting (Pre-Dialysis) 159/63 mmHg BP Sitting (Post-Dialysis) 140/66 mmHg Concurrent Access: falseAV Fistula Forearm (Left) Arterial BP Standing (Pre-Dialysis) 148/66 mmHg BP Standing (P ost-Dialysis) 128/52 mmHg Sitting Heart Rate Pre-Dialysis 95 BPM Sitting Heart Rate Post-Dialysis 70 BPM Standing Heart Rate Pre-Dialysis 97 BPM Standing Heart Rate Post-Dialysis 77 BPM Temperature Pre-Dialysis 98 degF Temperature Post -Dialysis 97.4 degF July 27, 2023 In-Center Hemodialysis Treatment [id number]:19:00.000Z 0556-04-02X74:57:44.000Z BP Sitting (Pre-Dialysis) 106/45 mmHg BP Sitting (Post-Dialysis) 140/71 mmHg Concurrent Access: falseAV Fistula Forearm (Left) Arterial Sitting Heart Rate Pre-Dialysis 91 BPM BP Standi ng (Post-Dialysis) 138/58 mmHg Temperature Pre-Dialysis 98 degF Sitting Heart Ra te Post-Dialysis 70 BPM Standing Heart Rate Post-Marlys lysis 64 BPM Temperature Post-Dialysis 97 .8 degF July 24, 2023 In-Center Hemodialysis Treatment 4139-23-59H50:08:00.000Z 7631-92-58N70:50:25.000Z BP Sitting (Pre-Dialysis) 129/67 mmHg BP Sitting (Post-Dialysis) 145/75 mmHg Concurrent Access: falseAV Fistula Forearm (Left) Arterial Sitting Heart Rate Pre-Dialysis 80 BPM BP Standi ng (Post-Dialysis) 119/62 mmHg Temperature Pre-Dialysis 98 degF Sitting Heart Ra te Post-Dialysis 72 BPM Standing Heart Rate Post-Marlys lysis 73 BPM Temperature Post-Dialysis 97 .7 degF July 22, 2023 In-Center Hemodialysis Treatment [id number]:13:00.000Z 1320-69-94O60:45:00.000Z BP Sitting (Pre-Dialysis) 129/63 mmHg BP Sitting (Post-Dialysis) 137/75 mmHg Concurrent Access: falseAV Fistula Forearm (Left) Arterial Sitting Heart Rate Pre-Dialysis 93 BPM Sitting H eart Rate Post-Dialysis 73 BPM Temperature Pre-Dialysis 98.1 degF Temperature Post -Dialysis 98.5 degF July 20, 2023 In-Center Hemodialysis Treatment [id number]:35:23.000Z 5336-95-55J82:10:08.000Z BP Sitting (Pre-Dialysis) 138/66 mmHg BP Sitting (Post-Dialysis) 133/67 mmHg Concurrent Access: falseAV Fistula Forearm (Left) Arterial BP Standing (Pre-Dialysis) 124/58 mmHg BP Standing (P ost-Dialysis) 129/62 mmHg Sitting Heart Rate Pre-Dialysis 81 BPM Sitting Heart Rate Post-Dialysis 70 BPM Standing Heart Rate Pre-Dialysis 92 BPM Standing Heart Rate Post-Dialysis 70 BPM Temperature Pre-Dialysis 97.5 degF Temperature Post -Dialysis 97.6 degF July 17, 2023 In-Center Hemodialysis Treatment [id number]:25:00.000Z 6525-06-56O72:59:00.000Z BP Sitting (Pre-Dialysis) 189/92 mmHg BP Sitting (Post-Dialysis) 132/67 mmHg Concurrent Access: falseAV Fistula Forearm (Left) Arterial Sitting Heart Rate Pre-Dialysis 73 BPM Sitting H eart Rate Post-Dialysis 71 BPM Temperature Pre-Dialysis 98 degF Temperature Post -Dialysis 97.5 degF July 15, 2023 In-Center Hemodialysis Treatment 4462-35-07S73:13:00.000Z 9211-76-08R24:55:05.000Z BP Sitting (Pre-Dialysis) 114/44 mmHg BP Sitting (Post-Dialysis) 141/84 mmHg Concurrent Access: falseAV Fistula Forearm (Left) Arterial Sitting Heart Rate Pre-Dialysis 74 BPM BP Standi ng (Post-Dialysis) 124/63 mmHg Temperature Pre-Dialysis 98 degF Sitting Heart Ra te Post-Dialysis 73 BPM Standing Heart Rate Post-Marlys lysis 70 BPM Temperature Post-Dialysis 98 .1 degF July 13, 2023 In-Center Hemodialysis Treatment 9350-76-89G77:18:00.000Z 0511-74-39X28:51:01.000Z BP Sitting (Pre-Dialysis) 166/86 mmHg BP Sitting (Post-Dialysis) 165/85 mmHg Concurrent Access: falseAV Fistula Forearm (Left) Arterial Sitting Heart Rate Pre-Dialysis 90 BPM BP Standing (Post-Dialysis) 122/63 mmHg Temperature Pre-Dialysis 97.3 degF Sitting Heart Ra te Post-Dialysis 71 BPM Standing Heart Rate Post-Marlys lysis 71 BPM Temperature Post-Dialysis 98 .3 degF July 10, 2023 In-Center Hemodialysis Treatment [id number]:07:00.000Z 2962-17-61O18:50:57.000Z BP Sitting (Pre-Dialysis) 91/41 mmHg BP Sitting (Post-Dialysis) 130/64 mmHg Concurrent Access: falseAV Fistula Forearm (Left) Arterial Sitting Heart Rate Pre-Dialysis 92 BPM BP Standing (Post-Dialysis) 120/66 mmHg Temperature Pre-Dialysis 97.8 degF Sitting Heart Ra te Post-Dialysis 74 BPM Standing Heart Rate Post-Marlys lysis 72 BPM Temperature Post-Dialysis 97 degF July 08, 2023 In-Center Hemodialysis Treatment [id number]:36:00.000Z 2610-06-52P70:07:46.000Z BP Sitting (Pre-Dialysis) 144/72 mmHg BP Sitting (Post-Dialysis) 127/54 mmHg Concurrent Access: falseAV Fistula Forearm (Left) Arterial Sitting Heart Rate Pre-Dialysis 92 BPM BP Standi ng (Post-Dialysis) 130/66 mmHg Temperature Pre-Dialysis 97 degF Sitting Heart Ra te Post-Dialysis 80 BPM Standing Heart Rate Post-Marlys lysis 82 BPM Temperature Post-Dialysis 97 .9 degF July 06, 2023 In-Center Hemodialysis Treatment 2835-79-43X60:20:00.000Z 1233-04-43S59:53:00.000Z BP Sitting (Pre-Dialysis) 141/70 mmHg BP Sitting (Post-Dialysis) 162/77 mmHg Concurrent Access: falseAV Fistula Forearm (Left) Arterial Sitting Heart Rate Pre-Dialysis 87 BPM Sitting H eart Rate Post-Dialysis 67 BPM Temperature Pre-Dialysis 98 degF Temperature Post -Dialysis 97.9 degF July 03, 2023 In-Center Hemodialysis Treatment [id number]:09:00.000Z 0878-14-14Y21:41:05.000Z BP Sitting (Pre-Dialysis) 128/58 mmHg BP Sitting (Post-Dialysis) 141/78 mmHg Concurrent Access: falseAV Fistula Forearm (Left) Arterial BP Standing (Pre-Dialysis) 131/59 mmHg BP Standing (P ost-Dialysis) 148/78 mmHg Sitting Heart Rate Pre-Dialysis 64 BPM Sitting Heart Rate Post-Dialysis 79 BPM Standing Heart Rate Pre-Dialysis 72 BPM Standing Heart Rate Post-Dialysis 71 BPM Temperature Pre-Dialysis 97.8 degF Temperature Post -Dialysis 97.9 degF July 01, 2023 In-Center Hemodialysis Treatment 4560-08-78A01:26:00.000Z 2460-73-15K39:58:50.000Z BP Sitting (Pre-Dialysis) 106/56 mmHg BP Sitting (Post-Dialysis) 163/79 mmHg Concurrent Access: falseAV Fistula Forearm (Left) Arterial Sitting Heart Rate Pre-Dialysis 93 BPM BP Standing (Post-Dialysis) 122/62 mmHg Temperature Pre-Dialysis 98.2 degF Sitting Heart Ra te Post-Dialysis 71 BPM Standing Heart Rate Post-Marlys lysis 74 BPM Temperature Post-Dialysis 97 .7 degF June 29, 2023 In-Center Hemodialysis Treatment 5179-80-21J93:24:00.000Z 4004-17-56P44:01:13.000Z BP Sitting (Pre-Dialysis) 144/81 mmHg BP Sitting (Post-Dialysis) 158/64 mmHg Concurrent Access: falseAV Fistula Forearm (Left) Arterial Sitting Heart Rate Pre-Dialysis 88 BPM BP Standi ng (Post-Dialysis) 111/73 mmHg Temperature Pre-Dialysis 97 degF Sitting Heart Ra te Post-Dialysis 70 BPM Standing Heart Rate Post-Marlys lysis 82 BPM Temperature Post-Dialysis 97 .8 degF June 26, 2023 In-Center Hemodialysis Treatment 1250-12-74Y74:22:00.000Z 0382-52-31Y47:23:52.000Z BP Sitting (Pre-Dialysis) 120/58 mmHg BP Sitting (Post-Dialysis) 132/62 mmHg Concurrent Access: falseAV Fistula Forearm (Left) Arterial BP Standing (Pre-Dialysis) 128/58 mmHg BP Standing (P ost-Dialysis) 128/60 mmHg Sitting Heart Rate Pre-Dialysis 60 BPM Sitting Heart Rate Post-Dialysis 70 BPM Standing Heart Rate Pre-Dialysis 64 BPM Standing Heart Rate Post-Dialysis 69 BPM Temperature Pre-Dialysis 97.8 degF Temperature Post -Dialysis 97.8 degF June 24, 2023 In-Center Hemodialysis Treatment 8197-45-28V68:02:00.000Z 4934-39-94E47:35:52.000Z BP Sitting (Pre-Dialysis) 99/50 mmHg BP Sitting (Post-Dialysis) 132/64 mmHg Concurrent Access: falseAV Fistula Forearm (Left) Arterial Sitting Heart Rate Pre-Dialysis 89 BPM Sitting H eart Rate Post-Dialysis 70 BPM Temperature Pre-Dialysis 97 degF Temperature Post -Dialysis 97.9 degF June 22, 2023 In-Center Hemodialysis Treatment 5067-94-13I36:09:00.000Z 9117-67-81T28:43:24.000Z BP Sitting (Pre-Dialysis) 107/52 mmHg BP Sitting (Post-Dialysis) 160/78 mmHg Concurrent Access: falseAV Fistula Forearm (Left) Arterial Sitting Heart Rate Pre-Dialysis 85 BPM BP Standing (Post-Dialysis) 154/64 mmHg Temperature Pre-Dialysis 98.5 degF Sitting Heart Ra te Post-Dialysis 64 BPM Standing Heart Rate Post-Marlys lysis 70 BPM Temperature Post-Dialysis 97 .8 degF June 19, 2023 In-Center Hemodialysis Treatment [id number]:54:00.000Z 4166-73-89D43:26:05.000Z BP Sitting (Pre-Dialysis) 110/60 mmHg BP Sitting (Post-Dialysis) 128/72 mmHg Concurrent Access: falseAV Fistula Forearm (Left) Arterial Sitting Heart Rate Pre-Dialysis 72 BPM Sitting H eart Rate Post-Dialysis 71 BPM Temperature Pre-Dialysis 98 degF Temperature Post -Dialysis 97.4 degF June 17, 2023 In-Center Hemodialysis Treatment 2804-76-44Y82:33:24.000Z 5413-18-64D82:06:25.000Z BP Sitting (Pre-Dialysis) 105/52 mmHg BP Sitting (Post-Dialysis) 178/164 mmHg Concurrent Access: falseAV Fistula Forearm (Left) Arterial Sitting Heart Rate Pre-Dialysis 93 BPM BP Standing (Post-Dialysis) 104/57 mmHg Temperature Pre-Dialysis 97.4 degF Sitting Heart Ra te Post-Dialysis 70 BPM Standing Heart Rate Post-Marlys lysis 71 BPM Temperature Post-Dialysis 98 .3 degF June 15, 2023 In-Center Hemodialysis Treatment 8037-07-55A02:57:00.000Z 9094-90-97X47:38:14.000Z BP Sitting (Pre-Dialysis) 127/62 mmHg BP Sitting (Post-Dialysis) 110/58 mmHg Concurrent Access: falseAV Fistula Forearm (Left) Arterial Sitting Heart Rate Pre-Dialysis 89 BPM BP Standing (Post-Dialysis) 112/58 mmHg Temperature Pre-Dialysis 97.8 degF Sitting Heart Ra te Post-Dialysis 64 BPM Standing Heart Rate Post-Marlys lysis 64 BPM Temperature Post-Dialysis 97 .8 degF June 12, 2023 In-Center Hemodialysis Treatment [id number]:21:00.000Z 7033-69-64Q79:52:14.000Z BP Sitting (Pre-Dialysis) 133/65 mmHg BP Sitting (Post-Dialysis) 124/67 mmHg Concurrent Access: falseAV Fistula Forearm (Left) Arterial Sitting Heart Rate Pre-Dialysis 85 BPM Sitting H eart Rate Post-Dialysis 66 BPM Temperature Pre-Dialysis 98.2 degF Temperature Post -Dialysis 97.2 degF June 10, 2023 In-Center Hemodialysis Treatment [id number]:59:00.000Z [id number]:36:54.000Z BP Sitting (Pre-Dialysis) 116/50 mmHg BP Sitting (Post-Dialysis) 138/76 mmHg Concurrent Access: falseAV Fistula Forearm (Left) Arterial BP Standing (Pre-Dialysis) 99/43 mmHg BP Standing (P ost-Dialysis) 122/58 mmHg Sitting Heart Rate Pre-Dialysis 93 BPM Sitting Heart Rate Post-Dialysis 77 BPM Standing Heart Rate Pre-Dialysis 91 BPM Standing Heart Rate Post-Dialysis 74 BPM Temperature Pre-Dialysis 98 degF Temperature Post -Dialysis 97 degF June 08, 2023 In-Center Hemodialysis Treatment [id number]:44:00.000Z [id number]:24:16.000Z BP Sitting (Pre-Dialysis) 154/102 mmHg BP Sitting (Post-Dialysis) 114/66 mmHg Concurrent Access: falseAV Fistula Forearm (Left) Arterial Sitting Heart Rate Pre-Dialysis 88 BPM BP Standing (Post-Dialysis) 114/52 mmHg Temperature Pre-Dialysis 98.1 degF Sitting Heart Ra te Post-Dialysis 73 BPM Standing Heart Rate Post-Marlys lysis 77 BPM Temperature Post-Dialysis 98 degF June 05, 2023 In-Center Hemodialysis Treatment [id number]:44:00.000Z [id number]:17:33.000Z BP Sitting (Pre-Dialysis) 138/67 mmHg BP Sitting (Post-Dialysis) 122/63 mmHg Concurrent Access: falseAV Fistula Forearm (Left) Arterial BP Standing (Pre-Dialysis) 139/73 mmHg BP Standing (P ost-Dialysis) 130/68 mmHg Sitting Heart Rate Pre-Dialysis 79 BPM Sitting Heart Rate Post-Dialysis 81 BPM Standing Heart Rate Pre-Dialysis 79 BPM Standing Heart Rate Post-Dialysis 87 BPM Temperature Pre-Dialysis 98 degF Temperature Post -Dialysis 97.6 degF June 03, 2023 In-Center Hemodialysis Treatment [id number]:47:00.000Z [id number]:19:56.000Z BP Sitting (Pre-Dialysis) 124/66 mmHg BP Sitting (Post-Dialysis) 139/83 mmHg Concurrent Access: falseAV Fistula Forearm (Left) Arterial Sitting Heart Rate Pre-Dialysis 93 BPM BP Standi ng (Post-Dialysis) 107/53 mmHg Temperature Pre-Dialysis 97 degF Sitting Heart Ra te Post-Dialysis 72 BPM Standing Heart Rate Post-Marlys lysis 72 BPM Temperature Post-Dialysis 97 .3 degF May 31, 2023 In-Center Hemodialysis Treatment [id number]:43:00.000Z [id number]:09:13.000Z BP Sitting (Pre-Dialysis) 113/53 mmHg BP Sitting (Post-Dialysis) 160/88 mmHg Concurrent Access: falseAV Fistula Forearm (Left) Arterial Sitting Heart Rate Pre-Dialysis 89 BPM BP Standi ng (Post-Dialysis) 158/86 mmHg Temperature Pre-Dialysis 97 degF Sitting Heart Ra te Post-Dialysis 77 BPM Standing Heart Rate Post-Marlys lysis 75 BPM Temperature Post-Dialysis 97 .6 degF May 29, 2023 In-Center Hemodialysis Treatment [id number]:41:15.000Z [id number]:15:36.000Z BP Sitting (Pre-Dialysis) 139/71 mmHg BP Sitting (Post-Dialysis) 136/70 mmHg Concurrent Access: falseAV Fistula Forearm (Left) Arterial BP Standing (Pre-Dialysis) 118/67 mmHg BP Standing (P ost-Dialysis) 120/59 mmHg Sitting Heart Rate Pre-Dialysis 80 BPM Sitting Heart Rate Post-Dialysis 74 BPM Standing Heart Rate Pre-Dialysis 91 BPM Standing Heart Rate Post-Dialysis 77 BPM Temperature Pre-Dialysis 98.5 degF Temperature Post -Dialysis 98.8 degF May 27, 2023 In-Center Hemodialysis Treatment [id number]:45:00.000Z [id number]:16:46.000Z BP Sitting (Pre-Dialysis) 118/69 mmHg BP Sitting (Post-Dialysis) 126/62 mmHg Concurrent Access: falseAV Fistula Forearm (Left) Arterial Sitting Heart Rate Pre-Dialysis 90 BPM Sitting H eart Rate Post-Dialysis 73 BPM Temperature Pre-Dialysis 97.8 degF Temperature Post -Dialysis 97.4 degF May 25, 2023 In-Center Hemodialysis Treatment [id number]:39:00.000Z [id number]:15:21.000Z BP Sitting (Pre-Dialysis) 161/77 mmHg BP Sitting (Post-Dialysis) 148/72 mmHg Concurrent Access: falseAV Fistula Forearm (Left) Arterial BP Standing (Pre-Dialysis) 149/72 mmHg Sitting Heart Rate Post-Dialysis 72 BPM Sitting Heart Rate Pre-Dialysis 71 BPM Temperatu re Post-Dialysis 98 degF Standing Heart Rate Pre-Dialysis 80 BPM Temperature Pre-Dialysis 97.8 degF Results Adequacy Description Draw Date Result/Unit Status Ref Range Result Comments WEIGHT - POST DAY 1 2023-05-29 16:24:49 98 kg F WEIGHT - PRE DAY 1 2023-05-29 16:24:49 99.2 kg F HEIGHT IN INCHES 2023-05-29 16:24:49 72 Inches F WEIGHT (KG) 2023-05-29 16:24:49 98 kg F PRESCRIBED DAYS/WEEK 2023-05-29 16:24:49 3 Day/Wk F VM (KT/V MEAN VOL) 2023-05-29 16:24:49 40.4 F VT (KT/V TX VOL) 2023-05-29 16:24:49 40.4 L F Residual kt/v 2023-05-29 16:24:49 F KT/V PRESCRIBED 2023-05-29 16:24:49 1.68 F Total Kt/V 2023-05-29 16:24:49 1.55 F nPCR 2023-05-29 16:24:49 0.9 G/KG/D F AMPUTATE FACTOR 2023-05-29 16:24:49 0 F TBW ([place]) 2023-05-29 16:24:49 46.95 Liters F spKt/V 2023-05-29 16:24:49 1.55 F stdKt/V (DIAL) 2023-05-29 16:24:49 N/A F eKt/V 2023-05-29 16:24:49 1.31 F Std Renal KT/V 2023-05-29 16:24:49 N/A F stdKT/V Total 2023-05-29 16:24:49 N/A F TOTAL HOURS/WEEK DIALYSIS 2023-05-29 16:24:49 7 hrs F BLOOD FLOW-QWB 2023-05-29 16:24:49 427 F URR% 2023-05-29 16:24:49 75 % F PRESCRIBED DAYS/WEEK 2023-05-29 16:24:49 3 Day/Wk F TBW ([place]) 2023-05-29 16:24:49 46.95 Liters F CURRENT KRU 2023-05-29 16:24:49 F WEIGHT (KG) 2023-05-29 16:24:49 98 kg F Residual kt/v 2023-05-29 16:24:49 F URR% 2023-05-29 16:24:49 75 % F DIALYZER FLOW-QD 2023-05-29 16:24:49 702 mL/min F Dialyzer MURIEL 2023-05-29 16:24:49 1218 Calc F LENGTH OF DIALYSIS 2023-05-29 16:24:49 211 min F PATIENT AGE 2023-05-29 16:24:49 83 Years F Dialyzer MURIEL 2023-05-29 16:24:49 1218 Calc F BSA KITTY 2023-05-29 16:24:49 2.2 sq m F WEIGHT - POST DAY 1 2023-05-29 16:24:49 98 kg F WEIGHT - PRE DAY 1 2023-05-29 16:24:49 99.2 kg F WEIGHT (KG) 2023-05-29 16:24:49 98 kg F HEIGHT IN INCHES 2023-05-29 16:24:49 72 Inches F PRESCRIBED DAYS/WEEK 2023-05-29 16:24:49 3 Day/Wk F VT (KT/V TX VOL) 2023-05-29 16:24:49 40.4 L F VM (KT/V MEAN VOL) 2023-05-29 16:24:49 40.4 F Residual kt/v 2023-05-29 16:24:49 F KT/V PRESCRIBED 2023-05-29 16:24:49 1.68 F stdKT/V Total 2023-05-29 16:24:49 N/A F Total Kt/V 2023-05-29 16:24:49 1.55 F nPCR 2023-05-29 16:24:49 0.9 G/KG/D F AMPUTATE FACTOR 2023-05-29 16:24:49 0 F TBW ([place]) 2023-05-29 16:24:49 46.95 Liters F spKt/V 2023-05-29 16:24:49 1.55 F eKt/V 2023-05-29 16:24:49 1.31 F Std Renal KT/V 2023-05-29 16:24:49 N/A F stdKt/V (DIAL) 2023-05-29 16:24:49 N/A F CURRENT KRU 2023-05-29 16:24:49 F stdKT/V Total 2023-05-29 16:24:49 N/A F TOTAL HOURS/WEEK DIALYSIS 2023-05-29 16:24:49 7 hrs F BLOOD FLOW-QWB 2023-05-29 16:24:49 427 F WEIGHT - POST DAY 1 2023-05-29 16:24:49 98 kg F CURRENT KRU 2023-05-29 16:24:49 F Total Kt/V 2023-05-29 16:24:49 1.55 F AMPUTATE FACTOR 2023-05-29 16:24:49 0 F BSA KITTY 2023-05-29 16:24:49 2.2 sq m F WEIGHT - POST DAY 1 2023-05-29 16:24:49 98 kg F PATIENT AGE 2023-05-29 16:24:49 83 Years F WEIGHT - PRE DAY 1 2023-05-29 16:24:49 99.2 kg F KT/V PRESCRIBED 2023-05-29 16:24:49 1.68 F VM (KT/V MEAN VOL) 2023-05-29 16:24:49 40.4 F URR% 2023-05-29 16:24:49 75 % F spKt/V 2023-05-29 16:24:49 1.55 F HEIGHT IN INCHES 2023-05-29 16:24:49 72 Inches F nPCR 2023-05-29 16:24:49 0.9 G/KG/D F stdKT/V Total 2023-05-29 16:24:49 N/A F TBW ([place]) 2023-05-29 16:24:49 46.95 Liters F eKt/V 2023-05-29 16:24:49 1.31 F PRESCRIBED DAYS/WEEK 2023-05-29 16:24:49 3 Day/Wk F WEIGHT (KG) 2023-05-29 16:24:49 98 kg F Std Renal KT/V 2023-05-29 16:24:49 N/A F LENGTH OF DIALYSIS 2023-05-29 16:24:49 211 min F Dialyzer MURIEL 2023-05-29 16:24:49 1218 Calc F CURRENT KRU 2023-05-29 16:24:49 F Residual kt/v 2023-05-29 16:24:49 F DIALYZER FLOW-QD 2023-05-29 16:24:49 702 mL/min F stdKt/V (DIAL) 2023-05-29 16:24:49 N/A F VT (KT/V TX VOL) 2023-05-29 16:24:49 40.4 L F TOTAL HOURS/WEEK DIALYSIS 2023-05-29 16:24:49 7 hrs F BLOOD FLOW-QWB 2023-05-29 16:24:49 427 F PATIENT AGE 2023-05-29 16:24:49 83 Years F KT/V PRESCRIBED 2023-05-29 16:24:49 1.68 F spKt/V 2023-05-29 16:24:49 1.55 F Std Renal KT/V 2023-05-29 16:24:49 N/A F VM (KT/V MEAN VOL) 2023-05-29 16:24:49 40.4 F stdKt/V (DIAL) 2023-05-29 16:24:49 N/A F LENGTH OF DIALYSIS 2023-05-29 16:24:49 211 min F WEIGHT - PRE DAY 1 2023-05-29 16:24:49 99.2 kg F BLOOD FLOW-QWB 2023-05-29 16:24:49 427 F TOTAL HOURS/WEEK DIALYSIS 2023-05-29 16:24:49 7 hrs F Total Kt/V 2023-05-29 16:24:49 1.55 F VT (KT/V TX VOL) 2023-05-29 16:24:49 40.4 L F BSA KITTY 2023-05-29 16:24:49 2.2 sq m F DIALYZER FLOW-QD 2023-05-29 16:24:49 702 mL/min F AMPUTATE FACTOR 2023-05-29 16:24:49 0 F nPCR 2023-05-29 16:24:49 0.9 G/KG/D F HEIGHT IN INCHES 2023-05-29 16:24:49 72 Inches F eKt/V 2023-05-29 16:24:49 1.31 F URR% 2023-05-29 16:24:49 75 % F DIALYZER FLOW-QD 2023-05-29 16:24:49 702 mL/min F Dialyzer MURIEL 2023-05-29 16:24:49 1218 Calc F LENGTH OF DIALYSIS 2023-05-29 16:24:49 211 min F PATIENT AGE 2023-05-29 16:24:49 83 Years F ZAID TANG 2023-05-29 16:24:49 2.2 sq m F Urea nitrogen [Mass/volume] in Serum or Plasma --post dialysis 2023-05-29 16:23:41 13 mg/dL F 9.0-23.0 Urea nitrogen [Mass/volume] in Serum or Plasma --post dialysis 2023-05-29 16:23:41 13 mg/dL F 9.0-23.0 Urea nitrogen [Mass/volume] in Serum or Plasma --post dialysis 2023-05-29 16:23:41 13 mg/dL F 9.0-23.0 Urea nitrogen [Mass/volume] in Serum or Plasma --post dialysis 2023-05-29 16:23:41 13 mg/dL F 9.0-23.0 Urea nitrogen [Mass/volume] in Serum or Plasma 2023-05-28 21:31:40 52 mg/dL F 9.0-23.0 Creatinine [Mass/volume] in Serum or Plasma 2023-05-28 21:31:40 8.14 mg/dL F 0.7-1.3 Creatinine [Mass/volume] in Serum or Plasma 2023-05-28 21:31:40 8.14 mg/dL F 0.7-1.3 Urea nitrogen [Mass/volume] in Serum or Plasma 2023-05-28 21:31:40 52 mg/dL F 9.0-23.0 Creatinine [Mass/volume] in Serum or Plasma 2023-05-28 21:31:40 8.14 mg/dL F 0.7-1.3 Urea nitrogen [Mass/volume] in Serum or Plasma 2023-05-28 21:31:40 52 mg/dL F 9.0-23.0 Urea nitrogen [Mass/volume] in Serum or Plasma 2023-05-28 21:31:40 52 mg/dL F 9.0-23.0 Creatinine [Mass/volume] in Serum or Plasma 2023-05-28 21:31:40 8.14 mg/dL F 0.7-1.3 Anemia Description Draw Date Result/Unit Status Ref Range Result Comments TIBC 2023-05-29 05:42:43 175 ug/dL F 250.0-425.0 IRON SATURATION 2023-05-29 05:42:43 33 % F 21.0-49.0 TIBC 2023-05-29 05:42:43 175 ug/dL F 250.0-425.0 IRON SATURATION 2023-05-29 05:42:43 33 % F 21.0-49.0 IRON SATURATION 2023-05-29 05:42:43 33 % F 21.0-49.0 TIBC 2023-05-29 05:42:43 175 ug/dL F 250.0-425.0 TIBC 2023-05-29 05:42:43 175 ug/dL F 250.0-425.0 IRON SATURATION 2023-05-29 05:42:43 33 % F 21.0-49.0 Iron binding capacity.unsaturated [Mass/volume] in Serum or Plasma 2023-05-29 05:39:40 118 ug/dL F 75.0-360.0 Iron [Mass/volume] in Serum or Plasma 2023-05-29 05:39:40 57 ug/dL F 65.0-175.0 Iron binding capacity.unsaturated [Mass/volume] in Serum or Plasma 2023-05-29 05:39:40 118 ug/dL F 75.0-360.0 Iron [Mass/volume] in Serum or Plasma 2023-05-29 05:39:40 57 ug/dL F 65.0-175.0 Iron binding capacity.unsaturated [Mass/volume] in Serum or Plasma 2023-05-29 05:39:40 118 ug/dL F 75.0-360.0 Iron binding capacity.unsaturated [Mass/volume] in Serum or Plasma 2023-05-29 05:39:40 118 ug/dL F 75.0-360.0 Iron [Mass/volume] in Serum or Plasma 2023-05-29 05:39:40 57 ug/dL F 65.0-175.0 Iron [Mass/volume] in Serum or Plasma 2023-05-29 05:39:40 57 ug/dL F 65.0-175.0 HCT CALC HGBX3 2023-05-29 00:29:05 30.3 % F 42.0-52.0 HCT CALC HGBX3 2023-05-29 00:29:05 30.3 % F 42.0-52.0 HCT CALC HGBX3 2023-05-29 00:29:05 30.3 % F 42.0-52.0 HCT CALC HGBX3 2023-05-29 00:29:05 30.3 % F 42.0-52.0 Erythrocyte distribution width [Ratio] by Automated count 2023-05-29 00:28:33 17.2 % F 11.0-15.0 Erythrocytes [#/volume] in Blood by Automated count 2023-05-29 00:28:33 2.95 x 10'6 cells/uL F 4.6-6.2 Hemoglobin [Mass/volume] in Blood 2023-05-29 00:28:33 10.1 g/dL F 14.0-18.0 Hematocrit [Volume Fraction] of Blood by Automated count 2023-05-29 00:28:33 29.3 % F 41.0-53.0 MCV [Entitic volume] by Automated count 2023-05-29 00:28:33 99.2 fL F 80.0-100.0 MCH [Entitic mass] by Automated count 2023-05-29 00:28:33 34.3 pg F 25.9-34.2 MCHC [Mass/volume] by Automated count 2023-05-29 00:28:33 34.6 g/dL F 29.6-35.3 Platelets [#/volume] in Blood by Automated count 2023-05-29 00:28:33 125 x 10'3 cells/uL F 140.0-450.0 Erythrocyte distribution width [Ratio] by Automated count 2023-05-29 00:28:33 17.2 % F 11.0-15.0 Erythrocytes [#/volume] in Blood by Automated count 2023-05-29 00:28:33 2.95 x 10'6 cells/uL F 4.6-6.2 Hematocrit [Volume Fraction] of Blood by Automated count 2023-05-29 00:28:33 29.3 % F 41.0-53.0 Hemoglobin [Mass/volume] in Blood 2023-05-29 00:28:33 10.1 g/dL F 14.0-18.0 MCV [Entitic volume] by Automated count 2023-05-29 00:28:33 99.2 fL F 80.0-100.0 MCHC [Mass/volume] by Automated count 2023-05-29 00:28:33 34.6 g/dL F 29.6-35.3 MCH [Entitic mass] by Automated count 2023-05-29 00:28:33 34.3 pg F 25.9-34.2 Platelets [#/volume] in Blood by Automated count 2023-05-29 00:28:33 125 x 10^3 cells/uL F 140.0-450.0 Erythrocytes [#/volume] in Blood by Automated count 2023-05-29 00:28:33 2.95 x 10'6 cells/uL F 4.6-6.2 Erythrocyte distribution width [Ratio] by Automated count 2023-05-29 00:28:33 17.2 % F 11.0-15.0 Hemoglobin [Mass/volume] in Blood 2023-05-29 00:28:33 10.1 g/dL F 14.0-18.0 MCH [Entitic mass] by Automated count 2023-05-29 00:28:33 34.3 pg F 25.9-34.2 MCHC [Mass/volume] by Automated count 2023-05-29 00:28:33 34.6 g/dL F 29.6-35.3 Hematocrit [Volume Fraction] of Blood by Automated count 2023-05-29 00:28:33 29.3 % F 41.0-53.0 MCV [Entitic volume] by Automated count 2023-05-29 00:28:33 99.2 fL F 80.0-100.0 Platelets [#/volume] in Blood by Automated count 2023-05-29 00:28:33 125 x 10^3 cells/uL F 140.0-450.0 MCHC [Mass/volume] by Automated count 2023-05-29 00:28:33 34.6 g/dL F 29.6-35.3 Hematocrit [Volume Fraction] of Blood by Automated count 2023-05-29 00:28:33 29.3 % F 41.0-53.0 Platelets [#/volume] in Blood by Automated count 2023-05-29 00:28:33 125 x 10'3 cells/uL F 140.0-450.0 Erythrocytes [#/volume] in Blood by Automated count 2023-05-29 00:28:33 2.95 x 10'6 cells/uL F 4.6-6.2 Erythrocyte distribution width [Ratio] by Automated count 2023-05-29 00:28:33 17.2 % F 11.0-15.0 Hemoglobin [Mass/volume] in Blood 2023-05-29 00:28:33 10.1 g/dL F 14.0-18.0 MCH [Entitic mass] by Automated count 2023-05-29 00:28:33 34.3 pg F 25.9-34.2 MCV [Entitic volume] by Automated count 2023-05-29 00:28:33 99.2 fL F 80.0-100.0 Ferritin [Mass/volume] in Serum or Plasma 2023-05-28 23:09:40 798 ng/mL F 22.0-322.0 Ferritin [Mass/volume] in Serum or Plasma 2023-05-28 23:09:40 798 ng/mL F 22.0-322.0 Ferritin [Mass/volume] in Serum or Plasma 2023-05-28 23:09:40 798 ng/mL F 22.0-322.0 Ferritin [Mass/volume] in Serum or Plasma 2023-05-28 23:09:40 798 ng/mL F 22.0-322.0 Comorbidities Description Draw Date Result/Unit Status Ref Range Result Comments Hemoglobin A1c/Hemoglobin.total in Blood 2023-06-04 19:49:13 5.7 %A1c F 0.0-5.6 FluidBP Description Draw Date Result/Unit Status Ref Range Result Comments Sodium [Moles/volume] in Serum or Plasma 2023-05-29 05:39:40 136 mEq/L F 132.0-146.0 Sodium [Moles/volume] in Serum or Plasma 2023-05-29 05:39:40 136 mEq/L F 132.0-146.0 Sodium [Moles/volume] in Serum or Plasma 2023-05-29 05:39:40 136 mEq/L F 132.0-146.0 Sodium [Moles/volume] in Serum or Plasma 2023-05-29 05:39:40 136 mEq/L F 132.0-146.0 General Description Draw Date Result/Unit Status Ref Range Result Comments Chloride [Moles/volume] in Serum or Plasma 2023-05-29 05:39:40 96 mEq/L F 99.0-109.0 Chloride [Moles/volume] in Serum or Plasma 2023-05-29 05:39:40 96 mEq/L F 99.0-109.0 Chloride [Moles/volume] in Serum or Plasma 2023-05-29 05:39:40 96 mEq/L F 99.0-109.0 Chloride [Moles/volume] in Serum or Plasma 2023-05-29 05:39:40 96 mEq/L F 99.0-109.0 Alanine aminotransferase [Enzymatic activity/volume] in Serum or Plasma 2023-05-28 21:31:40 13 U/L F 10.0-49.0 Aspartate aminotransferase [Enzymatic activity/volume] in Serum or Plasma 2023-05-28 21:31:40 19 U/L F 0.0-33.0 Aspartate aminotransferase [Enzymatic activity/volume] in Serum or Plasma 2023-05-28 21:31:40 19 U/L F 0.0-33.0 Aspartate aminotransferase [Enzymatic activity/volume] in Serum or Plasma 2023-05-28 21:31:40 19 U/L F 0.0-33.0 Alanine aminotransferase [Enzymatic activity/volume] in Serum or Plasma 2023-05-28 21:31:40 13 U/L F 10.0-49.0 Alanine aminotransferase [Enzymatic activity/volume] in Serum or Plasma 2023-05-28 21:31:40 13 U/L F 10.0-49.0 Alanine aminotransferase [Enzymatic activity/volume] in Serum or Plasma 2023-05-28 21:31:40 13 U/L F 10.0-49.0 Aspartate aminotransferase [Enzymatic activity/volume] in Serum or Plasma 2023-05-28 21:31:40 19 U/L F 0.0-33.0 Aluminum [Mass/volume] in Serum or Plasma 2023-05-28 21:14:41 10 ug/L F 0.0-9.0 Aluminum [Mass/volume] in Serum or Plasma 2023-05-28 21:14:41 10 ug/L F 0.0-9.0 Aluminum [Mass/volume] in Serum or Plasma 2023-05-28 21:14:41 10 ug/L F 0.0-9.0 Aluminum [Mass/volume] in Serum or Plasma 2023-05-28 21:14:41 10 ug/L F 0.0-9.0 InfectionVaccination Description Draw Date Result/Unit Status Ref Range Result Comments Lymphocytes/100 leukocytes in Blood by Automated count 2023-05-29 00:28:33 16.6 % F Monocytes/100 leukocytes in Blood by Automated count 2023-05-29 00:28:33 8 % F Neutrophils/100 leukocytes in Blood by Automated count 2023-05-29 00:28:33 71.2 % F Basophils/100 leukocytes in Blood by Automated count 2023-05-29 00:28:33 1.1 % F Lymphocytes/100 leukocytes in Blood by Automated count 2023-05-29 00:28:33 16.6 % F Monocytes/100 leukocytes in Blood by Automated count 2023-05-29 00:28:33 8 % F Eosinophils/100 leukocytes in Blood by Automated count 2023-05-29 00:28:33 3.1 % F Leukocytes [#/volume] in Blood by Automated count 2023-05-29 00:28:33 7 x 10'3 cells/uL F 4.0-11.0 Neutrophils [#/volume] in Blood by Automated count 2023-05-29 00:28:33 4984 Cell/uL F 2000.0-8800.0 Lymphocytes [#/volume] in Blood by Automated count 2023-05-29 00:28:33 1162 Cell/uL F 620.0-3660.0 Monocytes [#/volume] in Blood by Automated count 2023-05-29 00:28:33 560 Cell/uL F 0.0-1100.0 Basophils [#/volume] in Blood by Automated count 2023-05-29 00:28:33 77 Cell/uL F 0.0-400.0 Eosinophils [#/volume] in Blood by Automated count 2023-05-29 00:28:33 217 Cell/uL F 0.0-700.0 Basophils/100 leukocytes in Blood by Automated count 2023-05-29 00:28:33 1.1 % F Neutrophils/100 leukocytes in Blood by Automated count 2023-05-29 00:28:33 71.2 % F Lymphocytes/100 leukocytes in Blood by Automated count 2023-05-29 00:28:33 16.6 % F Eosinophils/100 leukocytes in Blood by Automated count 2023-05-29 00:28:33 3.1 % F Monocytes/100 leukocytes in Blood by Automated count 2023-05-29 00:28:33 8 % F Leukocytes [#/volume] in Blood by Automated count 2023-05-29 00:28:33 7 x 10^3 cells/uL F 4.0-11.0 Neutrophils [#/volume] in Blood by Automated count 2023-05-29 00:28:33 4984 Cell/uL F 2000.0-8800.0 Lymphocytes [#/volume] in Blood by Automated count 2023-05-29 00:28:33 1162 Cell/uL F 620.0-3660.0 Monocytes [#/volume] in Blood by Automated count 2023-05-29 00:28:33 560 Cell/uL F 0.0-1100.0 Basophils [#/volume] in Blood by Automated count 2023-05-29 00:28:33 77 Cell/uL F 0.0-400.0 Eosinophils [#/volume] in Blood by Automated count 2023-05-29 00:28:33 217 Cell/uL F 0.0-700.0 Monocytes/100 leukocytes in Blood by Automated count 2023-05-29 00:28:33 8 % F Eosinophils/100 leukocytes in Blood by Automated count 2023-05-29 00:28:33 3.1 % F Neutrophils/100 leukocytes in Blood by Automated count 2023-05-29 00:28:33 71.2 % F Lymphocytes/100 leukocytes in Blood by Automated count 2023-05-29 00:28:33 16.6 % F Basophils/100 leukocytes in Blood by Automated count 2023-05-29 00:28:33 1.1 % F Eosinophils [#/volume] in Blood by Automated count 2023-05-29 00:28:33 217 Cell/uL F 0.0-700.0 Leukocytes [#/volume] in Blood by Automated count 2023-05-29 00:28:33 7 x 10^3 cells/uL F 4.0-11.0 Basophils [#/volume] in Blood by Automated count 2023-05-29 00:28:33 77 Cell/uL F 0.0-400.0 Eosinophils [#/volume] in Blood by Automated count 2023-05-29 00:28:33 217 Cell/uL F 0.0-700.0 Monocytes [#/volume] in Blood by Automated count 2023-05-29 00:28:33 560 Cell/uL F 0.0-1100.0 Lymphocytes [#/volume] in Blood by Automated count 2023-05-29 00:28:33 1162 Cell/uL F 620.0-3660.0 Neutrophils [#/volume] in Blood by Automated count 2023-05-29 00:28:33 4984 Cell/uL F 2000.0-8800.0 Neutrophils [#/volume] in Blood by Automated count 2023-05-29 00:28:33 4984 Cell/uL F 2000.0-8800.0 Eosinophils/100 leukocytes in Blood by Automated count 2023-05-29 00:28:33 3.1 % F Leukocytes [#/volume] in Blood by Automated count 2023-05-29 00:28:33 7 x 10'3 cells/uL F 4.0-11.0 Basophils [#/volume] in Blood by Automated count 2023-05-29 00:28:33 77 Cell/uL F 0.0-400.0 Monocytes [#/volume] in Blood by Automated count 2023-05-29 00:28:33 560 Cell/uL F 0.0-1100.0 Lymphocytes [#/volume] in Blood by Automated count 2023-05-29 00:28:33 1162 Cell/uL F 620.0-3660.0 Neutrophils/100 leukocytes in Blood by Automated count 2023-05-29 00:28:33 71.2 % F Basophils/100 leukocytes in Blood by Automated count 2023-05-29 00:28:33 1.1 % F MineralBone Disorder Description Draw Date Result/Unit Status Ref Range Result Comments CA CORRECTED 2023-05-29 05:46:51 9.2 mg/dL F CA CORRECTED 2023-05-29 05:46:51 9.2 mg/dL F CA CORRECTED 2023-05-29 05:46:51 9.2 mg/dL F CA CORRECTED 2023-05-29 05:46:51 9.2 mg/dL F CA*PO4 CORRCTD 2023-05-29 05:42:43 37.7 Calc F 21.0-53.0 CA/PHOS PRODUCT 2023-05-29 05:42:43 36.9 Calc F 21.0-53.0 CA*PO4 CORRCTD 2023-05-29 05:42:43 37.7 Calc F 21.0-53.0 CA/PHOS PRODUCT 2023-05-29 05:42:43 36.9 Calc F 21.0-53.0 CA/PHOS PRODUCT 2023-05-29 05:42:43 36.9 Calc F 21.0-53.0 CA*PO4 CORRCTD 2023-05-29 05:42:43 37.7 Calc F 21.0-53.0 CA*PO4 CORRCTD 2023-05-29 05:42:43 37.7 Calc F 21.0-53.0 CA/PHOS PRODUCT 2023-05-29 05:42:43 36.9 Calc F 21.0-53.0 Calcium [Mass/volume] in Serum or Plasma 2023-05-29 05:39:40 9 mg/dL F 8.7-10.4 Calcium [Mass/volume] in Serum or Plasma 2023-05-29 05:39:40 9 mg/dL F 8.7-10.4 Calcium [Mass/volume] in Serum or Plasma 2023-05-29 05:39:40 9 mg/dL F 8.7-10.4 Calcium [Mass/volume] in Serum or Plasma 2023-05-29 05:39:40 9 mg/dL F 8.7-10.4 Parathyrin.intact [Mass/volume] in Serum or Plasma 2023-05-28 23:09:40 295 pg/mL F 18.0-80.0 Parathyrin.intact [Mass/volume] in Serum or Plasma 2023-05-28 23:09:40 295 pg/mL F 18.0-80.0 Parathyrin.intact [Mass/volume] in Serum or Plasma 2023-05-28 23:09:40 295 pg/mL F 18.0-80.0 Parathyrin.intact [Mass/volume] in Serum or Plasma 2023-05-28 23:09:40 295 pg/mL F 18.0-80.0 Alkaline phosphatase [Enzymatic activity/volume] in Serum or Plasma 2023-05-28 21:31:40 83 U/L F 46.0-116.0 Phosphate [Mass/volume] in Serum or Plasma 2023-05-28 21:31:40 4.1 mg/dL F 2.4-5.1 Phosphate [Mass/volume] in Serum or Plasma 2023-05-28 21:31:40 4.1 mg/dL F 2.4-5.1 Alkaline phosphatase [Enzymatic activity/volume] in Serum or Plasma 2023-05-28 21:31:40 83 U/L F 46.0-116.0 Phosphate [Mass/volume] in Serum or Plasma 2023-05-28 21:31:40 4.1 mg/dL F 2.4-5.1 Alkaline phosphatase [Enzymatic activity/volume] in Serum or Plasma 2023-05-28 21:31:40 83 U/L F 46.0-116.0 Alkaline phosphatase [Enzymatic activity/volume] in Serum or Plasma 2023-05-28 21:31:40 83 U/L F 46.0-116.0 Phosphate [Mass/volume] in Serum or Plasma 2023-05-28 21:31:40 4.1 mg/dL F 2.4-5.1 25-Hydroxyvitamin D3+25-Hydroxyvitamin D2 [Mass/volume] in Serum or Plasma 2023-05-28 19:35:38 54.9 ng/mL F 25-Hydroxyvitamin D3+25-Hydroxyvitamin D2 [Mass/volume] in Serum or Plasma 2023-05-28 19:35:38 54.9 ng/mL F 25-Hydroxyvitamin D3+25-Hydroxyvitamin D2 [Mass/volume] in Serum or Plasma 2023-05-28 19:35:38 54.9 ng/mL F 25-Hydroxyvitamin D3+25-Hydroxyvitamin D2 [Mass/volume] in Serum or Plasma 2023-05-28 19:35:38 54.9 ng/mL F Nutrition Description Draw Date Result/Unit Status Ref Range Result Comments Potassium [Moles/volume] in Serum or Plasma 2023-06-05 07:10:43 5 mEq/L F 3.5-5.5 Potassium [Moles/volume] in Serum or Plasma 2023-05-29 05:39:40 4 mEq/L F 3.5-5.5 Potassium [Moles/volume] in Serum or Plasma 2023-05-29 05:39:40 4 mEq/L F 3.5-5.5 Potassium [Moles/volume] in Serum or Plasma 2023-05-29 05:39:40 4 mEq/L F 3.5-5.5 Potassium [Moles/volume] in Serum or Plasma 2023-05-29 05:39:40 4 mEq/L F 3.5-5.5 A/G RATIO 2023-05-28 21:31:54 1 Calc F 1.0-2.5 GLOBULIN 2023-05-28 21:31:54 3.7 g/dL F 0.9-5.0 GLOBULIN 2023-05-28 21:31:54 3.7 g/dL F 0.9-5.0 A/G RATIO 2023-05-28 21:31:54 1 Calc F 1.0-2.5 GLOBULIN 2023-05-28 21:31:54 3.7 g/dL F 0.9-5.0 A/G RATIO 2023-05-28 21:31:54 1 Calc F 1.0-2.5 A/G RATIO 2023-05-28 21:31:54 1 Calc F 1.0-2.5 GLOBULIN 2023-05-28 21:31:54 3.7 g/dL F 0.9-5.0 Albumin [Mass/volume] in Serum or Plasma by Bromocresol green (BCG) dye binding method 2023-05-28 21:31:40 3.7 g/dL F 3.4-4.8 Bicarbonate [Moles/volume] in Serum or Plasma 2023-05-28 21:31:40 29 mEq/L F 20.0-31.0 Glucose [Mass/volume] in Serum or Plasma 2023-05-28 21:31:40 114 mg/dL F 70.0-99.0 Lactate dehydrogenase [Enzymatic activity/volume] in Serum or Plasma 2023-05-28 21:31:40 132 U/L F 120.0-246.0 Protein [Mass/volume] in Serum or Plasma 2023-05-28 21:31:40 7.4 g/dL F 5.7-8.2 Protein [Mass/volume] in Serum or Plasma 2023-05-28 21:31:40 7.4 g/dL F 5.7-8.2 Albumin [Mass/volume] in Serum or Plasma by Bromocresol green (BCG) dye binding method 2023-05-28 21:31:40 3.7 g/dL F 3.4-4.8 Bicarbonate [Moles/volume] in Serum or Plasma 2023-05-28 21:31:40 29 mEq/L F 20.0-31.0 Glucose [Mass/volume] in Serum or Plasma 2023-05-28 21:31:40 114 mg/dL F 70.0-99.0 Lactate dehydrogenase [Enzymatic activity/volume] in Serum or Plasma 2023-05-28 21:31:40 132 U/L F 120.0-246.0 Protein [Mass/volume] in Serum or Plasma 2023-05-28 21:31:40 7.4 g/dL F 5.7-8.2 Glucose [Mass/volume] in Serum or Plasma 2023-05-28 21:31:40 114 mg/dL F 70.0-99.0 Albumin [Mass/volume] in Serum or Plasma by Bromocresol green (BCG) dye binding method 2023-05-28 21:31:40 3.7 g/dL F 3.4-4.8 Bicarbonate [Moles/volume] in Serum or Plasma 2023-05-28 21:31:40 29 mEq/L F 20.0-31.0 Lactate dehydrogenase [Enzymatic activity/volume] in Serum or Plasma 2023-05-28 21:31:40 132 U/L F 120.0-246.0 Albumin [Mass/volume] in Serum or Plasma by Bromocresol green (BCG) dye binding method 2023-05-28 21:31:40 3.7 g/dL F 3.4-4.8 Bicarbonate [Moles/volume] in Serum or Plasma 2023-05-28 21:31:40 29 mEq/L F 20.0-31.0 Glucose [Mass/volume] in Serum or Plasma 2023-05-28 21:31:40 114 mg/dL F 70.0-99.0 Lactate dehydrogenase [Enzymatic activity/volume] in Serum or Plasma 2023-05-28 21:31:40 132 U/L F 120.0-246.0 Protein [Mass/volume] in Serum or Plasma 2023-05-28 21:31:40 7.4 g/dL F 5.7-8.2 Encounters No encounter information to report Immunizations Ordered Immunization Name Filled Immunization Name Date Status Comments Refusal Reason Pneumococcal conjugate PCV20, polysaccharide [id number] conjugate, adjuvant, PF 2023-08-10 23:54:57 TB RAQ 2023-05-25 06:00:00 TB Skin Test 2023-04-24 06:00:00 Influenza Vaccination 2023-03-04 05:00:00 Covid-19 Vaccination 2020-08-23 08:00:00 Covid-19 Vaccination 2020-08-03 08:00:00
--- OUTSIDE RECORDS SUMMARY | 2024-07-01 17:03 | XMS_ITS | Encounter Summary ---
Author Organization [facility] Address [address] [place] [address] Care Team Providers Care Swim Coach Name Role Phone Unavailable Primary Care Provider Unavailabl e Encounter Details Date Type Department Care Team (Late st Contact Info) Description 06/20/2024 Treatment [facility] [place] [address] [place] [address] Darren Tran MD [address] [place] [address] Social History Tobacco Use Types Packs/Day Years Used Date Smoking Tobacco: Never Assessed Sex and Gender Information Value Date Recorded Sex Assigned at Not on file Legal Sex Male 7:06 PM EDT Gender Identity Not on file Sexual Orientation Not on file documented as of this encounter Miscellaneous Notes * Dialysis Note - Darren Tran MD - 06/20/2024 12:00 AM CST Patient: Korey Mackay : 1940 Note Type: Dialysis Rounds-Comp Service Date: 06/20/2024 This patient was personally seen for a complete visit as part of routine monthly dialysis care for end stage renal disease. Attending Potato Grader: DARREN TRAN Dialysis Location: [facility] Schedule: Shift: 2 OVERVIEW COMMENTS: 06/20/24 MD: Saw patient and talked with his [place]. HE was hospitalized 05/25-06/08 for SOB, extra HD and EDW lowered, had angio of LE and opened popliteal but also partial amputation of toe in this foot. Speculated mass in lung seen, pull thought inflammatory rather than malignant but repeat scan 1-2 months, PCP to order if desired they stated. Not sleeping well since hospital stay, to try Benadryl as he was on this in past but hasn't been recently, melatonin has not helped. Deedee helping for itching, much better. HOME MEDICATIONS Medications reviewed. Current [facility] Medications albuterol sulfate 90 mcg/actuation HFA aerosol inhaler Inhale 2 puff using inhaler every four hours as needed. azelastine 137 mcg (0.1 %) spray,non-aerosol [1 spray twice a day] Milo Low Dose Aspirin 81 mg tablet,delayed release (DR/EC) Take 1 tablet by mouth once a day. Claritin 10 mg tablet [once a day] Co Q-10 100 mg capsule Take 1 capsule by mouth once a day. Dialyvite 4-106-721-50 ym-lp-xvj-mg tablet Take 1 tablet by mouth every evening with meals. floradix [iron and herbs liquid supplement to improve appetite and energy] hydrocortisone 2.5% cream Apply to affected area twice a day as needed. Levo-T 175 mcg tablet Take 1 tablet by mouth once a day. methyl salicylate-menthol 15-10% cream Apply to affected area three times a day as needed for pain. midodrine 10 mg tablet Take 1 tablet by mouth as directed. [take 1 tablet before dialysis and 1 tablet after dialysis on dialysis days, pre for hypotension other days] nitroglycerin 0.4 mg tablet, sublingual Place 1 tablet under tongue as directed as needed for pain. [for chest pain. May repeat every 5 min x 3. If no relief call 911.] Novolog FlexPen U-100 Insulin 100 unit/mL (3 mL) insulin pen Inject 5 unit subcutaneously three times a day with meals. pantoprazole sodium [40mcg 1 tablet 1/2 hr before meal] pravastatin 80 mg tablet Take 1 tablet by mouth at bedtime. Restasis 0.05% dropperette Instill 1 drop into both eyes twice a day. Robitussin Cough-Chest Paul DM 5-100 mg/5 mL liquid Take 5 ml by mouth every eight hours as needed. senna 8.6 mg capsule Take 2 capsule by mouth twice a day as directed. [only 1cap PM dose prior to dialysis] Singulair 10 mg tablet [1 tablet a day] tiotropium bromide 18 mcg capsule, w/inhalation device Inhale 1 capsule using nebulizer once a day. Tums [as needed] Tylenol Arthritis Pain 650 mg tablet extended release Take 1 tablet by mouth every eight hours as needed for pain. Vitamin D3 50 mcg (2,000 unit) capsule Take 1 capsule by mouth once a day. vitamin E (dl, acetate) 180 mg (400 unit) capsule Take 1 capsule by mouth once a day. Wixela Inhub 100-50 mcg/dose blister with device Inhale 1 puff as directed twice a day. zinc 50mg [as needed] Current [facility] Allergies Allergen: HYDROCODONE Reaction: Unknown Allergen: Lipitor Reaction: Unknown Allergen: Lipitor Reaction: Unknown Allergen: lisinopril Reaction: Nausea/Vomiting Allergen: lisinopril Reaction: Unknown Allergen: metoclopramide Reaction: Unknown Allergen: metoclopramide Reaction: Unknown Allergen: omeprazole Reaction: Nausea/Vomiting Allergen: omeprazole Reaction: Unknown DIALYSIS PRESCRIPTION Treatment Data Treatment Date: 06/20/2024 started at: 11:46 AM Dialysate / Machine Temp (prescribed): 37.0*C Dialysate / Machine Temp (actual): 37.0*C BFR (prescribed): 450 BFR (actual): 450 DFR (prescribed): Manual 800 DFR (actual): 800 Prescribed Time: 03:30 EDW (kg): 87.5 Dialyzer: 180NRe Optiflux Dialysate: 3.0 K, 2.5 Ca, 1.0 Mg, 100 Dextrose (G3251) Sodium: 135 Bicarb: 34 Pre Dialysis Vitals Pre BP Sit: 151/66 Pre Wt (kg): 91.5 EDW Deviation (kg): 4.0 Temp: 97.4*F Current Dialysis Vitals BP Sit: 151/69 AP/BOX PRESS OPERATOR: -160/220 Pulse: 69 TREATMENT MEDICATIONS ORDERS Iron Sucrose (Venofer) 50 mg IVP 1X Week During Dialysis 04/25/2024 - 04/24/2025 Korsuva (difelikefalin) IVP Dose 0.9 mL IVP 3X Week Post Dialysis 04/13/2024 - 07/03/2024 BP AND FLUID ASSESSMENT Acceptable blood pressure. Fluid status acceptable. EDW appropriate. COMMENTS: Needs low IDWG given hypotension with HD Midodrine now 10mg pre and 10mg post HD for hypotension, pre other days but hopefully not to use on non-HD days Post BP Sit 153/69 - 06/17/2024 148/68 - 06/15/2024 161/73 - 06/13/2024 Post Wt (kg) 88.0 - 06/17/2024 87.6 - 06/15/2024 87.5 - 06/13/2024 EDW (kg) 87.5 - 06/17/2024 87.5 - 06/15/2024 91.5 - 06/13/2024 Deviation (kg) 0.5 - 06/17/2024 0.1 - 06/15/2024 -4.0 - 06/13/2024 ADEQUACY ASSESSMENT Target not met - prescription change discussed with staff and patient. Prescription compliance acceptable. COMMENTS: Repeat adequacy and access flow Missed Treatments 7 - Last 30 days 7 - Last 60 days Most recently missed on 06/07/2024 spKt/V (Daugirdas II) 1.19 (06/15/24) 1.47 (05/11/24) 1.48 (04/13/24) eKdrt/V 1.02 (06/15/24) 1.28 (05/11/24) 1.27 (04/13/24) % Urea Reduction 65 (06/15/24) 71 (05/11/24) 73 (04/13/24) BUN 77 (06/15/24) 91 (05/11/24) 81 (04/13/24) BUN Post Dialysis 27 (06/15/24) 26 (05/11/24) 22 (04/13/24) Creatinine 5.79 (06/15/24) 5.32 (05/11/24) 6.16 (04/13/24) Bicarbonate (CO2) 25 (06/15/24) 25 (05/11/24) 21 (04/13/24) Sodium 135 (06/15/24) 132 (05/11/24) 132 (04/13/24) ACCESS ASSESSMENT Vascular access examined. AVF/AVG positive thrill/bruit. Current access is permanent and functioning well. AVFistula Standard Left Forearm Active (In Use) - 10/19/2020 Placed - Unknown Access Flow 860 (03/25/24) 910 (02/24/24) 803 (01/08/24) ANEMIA ASSESSMENT Anemia targets not met. Hemoglobin not at target. MISTY adjusted per protocol. Hemoglobin 8.2 (06/15/24) 8.2 (06/10/24) 8.3 (05/18/24) Iron Saturation (TSat) 39 (06/15/24) 39 (05/11/24) 39 (04/13/24) Ferritin 1,050 (04/13/24) 1,228 (01/13/24) 903 (10/09/23) Iron 81 (06/15/24) 77 (05/11/24) 77 (04/13/24) TIBC 208 (06/15/24) 199 (05/11/24) 197 (04/13/24) MCV 95 (06/15/24) 93 (05/11/24) 94 (04/13/24) Folate >24.0 (10/05/23) Vitamin B-12 844 (10/05/23) Platelets 191 (06/15/24) 177 (05/11/24) 154 (04/13/24) BMM ASSESSMENT PTH within target. Phosphorus controlled. Calcium controlled. Bone and mineral metabolism parameters reviewed. Calcium 9.8 06/15/24 9.4 05/11/24 9.5 04/13/24 Corrected Calcium 9.9 06/15/24 9.6 05/11/24 9.7 04/13/24 Phosphorus 3.3 06/15/24 2.8 05/11/24 2.4 04/13/24 Calcium Phosphorus Product 32 06/15/24 26 05/11/24 23 04/13/24 PTH 135 04/13/24 143 02/10/24 128 01/13/24 Vitamin D, 25-OH, Total 56.9 04/13/24 67.7 10/05/23 Magnesium 1.9 04/13/24 2.1 01/13/24 1.9 10/09/23 Alkaline Phosphatase 115 04/13/24 107 01/13/24 105 10/09/23 Aluminum 8 04/13/24 <5 10/07/23 8 10/05/23 NUTRITION ASSESSMENT Albumin not at goal. Potassium controlled. Caloric intake addressed. Patient taking protein supplements. Albumin 3.9 06/15/24 3.7 05/11/24 3.8 04/13/24 Potassium 3.8 06/15/24 4.9 05/11/24 4.5 04/13/24 eNPCR 1.04 06/15/24 1.38 05/11/24 1.22 04/13/24 TRANSPLANT STATUS COMMENT COMMENTS: Patient not a candidate for transplant PHYSICAL EXAM Exam performed. Vital Signs Reviewed. Lungs - Clear. CV - Blood pressure noted. CV - RRR. 1+ edema. ADDITIONAL LABS WBC 5.77 (06/15/24) 5.70 (05/11/24) 9.39 (04/13/24) Hepatitis B Surface Ab 26 (04/13/24) 14 (10/05/23) Signed by: DARREN TRAN MD on 06/20/2024 at 11:56:00 AM Transcribed by: DARREN TRAN MD on 06/20/2024 at 11:56:00 AM documented in this encounter Plan of Treatment Not on file documented as of this encounter Visit Diagnoses Not on filedocumented in this encounter
--- OUTSIDE RECORDS SUMMARY | 2024-07-01 17:03 | XMS_ITS | Encounter Summary ---
Author Organization [facility] Address [address] [place] [address] Care Team Providers Care Securities Analyst Name Role Phone Unavailable Primary Care Provider Unavailabl e Encounter Details Date Type Department Care Team (Late st Contact Info) Description 06/20/2024 Orders Only [facility] [place] [address] [facility] [address] [place] [address] Darren Youssef MD [address] [place] [address] Social History Tobacco Use Types [...] Date/Time Associated Diagnosis Comments HD KINETICS Routine 06/20/2024 POST CHEMISTRY Routine 06/20/2024 CHEMISTRY Routine 06/20/2024 [facility] RESULTS Routine 06/20/2024 documented in this encounter Results * [facility] Results (06/20/2024) spKt/V Gotch 1.43 [facility] PCR 75.47 [facility] spKt/V (Daugirdas II) 1.43 [facility] eKt/V ([place]) 1.23 [facility] nPCR_HD 1.04 [facility] eKt/V Gotch 1.21 [facility] eNPCR 0.96 [facility] eKdrt/V 1.21 [facility] WSTDKT/V 2.4 [facility] 06/20/2024 06/20/2024 [place] Ordering Provider LAB BLOOD ORDERABLES Final Result Performing Organization Address [facility] Co de Phone Number [facility] Contact Performing lab Unknown, [place] * HD KINETICS (06/20/2024) % Urea Reduction 71 65 - 80 % [facility] 06/20/2024 06/21/2024 10: 11 AM HUMAN SERVICE SPECIALIST Narrative [facility] - 06/21/2024 Unless otherwise specified, test(s) performed at: [facility], [address] [place] [address], [place] [address] SUPERVISORY INVESTIGATIVE SPECIALIST: Rojas Kirkland M.D., Ph.D For any questions, please call customer service at FREQUENCY:OTHER Resulting Agency Comment Specimen source: Plasma Darren Youssef MD LAB BLOOD ORDERABLES Final Re sult Performing Organization Address [facility] de Phone Number [facility] [employer] See order comments or contact performing lab Unknown, [place] * (ABNORMAL) [facility] (06/20/2024) Pathologist [facility] BUN 76(H) 6 - 19 mg/dL [facility] 06/20/2024 06/21/2024 1:4 4 PM HUMAN SERVICE SPECIALIST Narrative [facility] - 06/21/2024 Unless otherwise specified, test(s) performed at: [facility], [address] [place] [address], [place] [address] SUPERVISORY INVESTIGATIVE SPECIALIST: Rojas Kirkland M.D., Ph.D For any questions, please call customer service at FREQUENCY:OTHER Resulting Agency Comment Specimen source: Serum Darren Youssef MD LAB BLOOD ORDERABLES Final Re sult Performing Organization Address [facility] de Phone Number [facility] See order comments or contact performing lab Unknown, [place] * (ABNORMAL) POST CHEMISTRY (06/20/2024) BUN Post Dialysis 22(H) 6 - 19 mg/dL [facility] 06/20/2024 06/21/2024 10: 11 AM HUMAN SERVICE SPECIALIST Narrative [facility] - 06/21/2024 Unless otherwise specified, test(s) performed at: [facility], [address] [place] [address], [place] [address] SUPERVISORY INVESTIGATIVE SPECIALIST: Rojas Kirkland M.D., Ph.D For any questions, please call customer service at FREQUENCY:OTHER Resulting Agency Comment Specimen source: Plasma us Darren Youssef MD LAB BLOOD ORDERABLES Final Re sult [facility] See order comments or contact performing lab Unknown, [place] documented in this encounter Visit Diagnoses Not on filedocumented in this encounter
--- OUTSIDE RECORDS SUMMARY | 2024-07-01 17:03 | XMS_ITS | Encounter Summary ---
Author Organization [facility] Address [address] [place] [address] Care Team Providers Care Workforce Investment Act Career Manager Name Role Phone Unavailable Primary Care Provider Unavailabl e Encounter Details Date Type Department Care Team (Late st Contact Info) Description 05/18/2024 Orders Only [facility] [place] [address] [facility] [address] [place] [address] Darren Youssef MD [address] [place] [address] Social History Tobacco Use Types [...] Priority Date/Time Associated Diagnosis Comments HEMATOLOGY Routine 05/18/2024 documented in this encounter Results * (ABNORMAL) HEMATOLOGY (05/18/2024) Hemoglobin 8.3(L) 14.0 - 18.0 g/dL [facility] Hemoglobin x 3 24.9(L) 42.0 - 54.0 % [facility] 05/18/2024 05/19/2024 4:1 5 AM ACCOUNTS PAYABLE REPRESENTATIVE Narrative [place] - 05/19/2024 Unless otherwise specified, test(s) performed at: [facility], [address] [place] [address], [place] [address] FLAVOR ROOM WORKER: Rojas Kirkland M.D., Ph.D For any questions, please call customer service at FREQUENCY:OTHER Resulting Agency Comment Specimen source: Blood us Darren Youssef MD LAB BLOOD ORDERABLES Final Re sult [facility] See order comments or contact performing lab Unknown, [place] documented in this encounter Visit Diagnoses Not on filedocumented in this encounter
--- OUTSIDE RECORDS SUMMARY | 2024-07-01 17:03 | XMS_ITS | Encounter Summary ---
Author Organization [facility] Address [address] [place] [address] Care Team Providers Care Board Certified Music Therapist Name Role Phone Unavailable Primary Care Provider Unavailabl e Encounter Details Date Type Department Care Team (Late st Contact Info) Description 05/09/2024 Treatment [facility] [address] [place] [address] Blanca Simon, MANAGING CONSULTANT-AGRICULTURAL APPRAISER [address] [place] [address] Social History Tobacco Use Types Packs/Day Years Used Date Smoking Tobacco: Never Assessed Sex and Gender Information Value Date Recorded Sex Assigned at Not on file Legal Sex Male 7:06 PM EDT Gender Identity Not on file Sexual Orientation Not on file documented as of this encounter Miscellaneous Notes * Dialysis Note - Blanca Simon MANAGING CONSULTANT-AGRICULTURAL APPRAISER - 05/09/2024 12:00 AM AMMONIUM HYDROXIDE OPERATOR Patient: Korey Mackay : 1940 Note Type: Dialysis Rounds-Comp Service Date: 05/09/2024 This patient was personally seen for a complete visit as part of routine monthly dialysis care for end stage renal disease. Attending Pen Rider: ANA TRAN Dialysis Location: [facility] Schedule: Shift: 2 OVERVIEW COMMENTS: 05/09/2024: Patient on dialysis. Spoke with at chairside. She reports he continues to have fatigue and poor appetite. BP stable. 04/22/24: Re-started Korsuva for itching. He is pleased about this but nothing else. Surgery cancelled by cardiology, unsure if will go to [place], poor energy (chronic), poor appetite (chronic), and generally upset about changes at HD unit with staff over the last several month. But dialysis overall stable an labs generally excellent this month and this was discussed with him. 04/13/2024: Spoke with at chairside. Unsure of plans to go [place] at this point. Continues to have fatigue and weakness. BP has been stable. He fluctuates close to EDW. Was approved for Kosuva for itching. He has appt to see Neurology next Tu. HOME MEDICATIONS Medications reviewed. Current [facility] Medications albuterol sulfate 90 mcg/actuation HFA aerosol inhaler Inhale 2 puff using inhaler every four hours as needed. azelastine 137 mcg (0.1 %) spray,non-aerosol [1 spray twice a day] Milo Low Dose Aspirin 81 mg tablet,delayed release (DR/EC) Take 1 tablet by mouth once a day. Co Q-10 100 mg capsule Take 1 capsule by mouth once a day. Dialyvite 0-204-681-50 rb-qi-rcr-mg tablet Take 1 tablet by mouth every evening with meals. floradix [iron and herbs liquid supplement to improve appetite and energy] hydrocortisone 2.5% cream Apply to affected area twice a day as needed. Lantus U-100 Insulin 100 unit/mL solution Inject 18 unit subcutaneously every evening. Levo-T 175 mcg tablet Take 1 tablet by mouth once a day. MegaRed Selby-3 Krill Oil 1,000-230-60 mg capsule Take 1 capsule by mouth once a day. methyl salicylate-menthol 15-10% cream Apply to affected area three times a day as needed for pain. nitroglycerin 0.4 mg tablet, sublingual Place 1 [...] 1 capsule using nebulizer once a day. Tylenol Arthritis Pain 650 mg tablet extended [...] Unknown DIALYSIS PRESCRIPTION Treatment Data Treatment Date: 05/18/2024 started at: 11:35 AM Dialysate / Machine Temp (prescribed): 37.0*C Dialysate / Machine Temp (actual): 36.6*C BFR (prescribed): 450 BFR (actual): 450 DFR (prescribed): Manual 800 DFR (actual): 800 Prescribed Time: 03:30 EDW (kg): 91.5 Dialyzer: 180NRe Optiflux Dialysate: 2.0 K, 2.5 Ca, 1.0 Mg, 100 Dextrose (G2251) Sodium: 135 Bicarb: 34 Pre Dialysis Vitals Pre BP Sit: 136/68 Pre Wt (kg): 94.8 EDW Deviation (kg): 3.3 Temp: 98.2*F Current Dialysis Vitals BP Sit: 134/61 AP/PIGMENT AND LACQUER MIXER: 152/190 Pulse: 69 TREATMENT MEDICATIONS ORDERS Iron Sucrose (Venofer) 50 mg IVP 1X Week During Dialysis 04/25/2024 - 04/24/2025 Korsuva (difelikefalin) IVP Dose 0.9 mL IVP 3X Week Post Dialysis 04/13/2024 - 07/03/2024 BP AND FLUID ASSESSMENT High blood pressure. EDW appropriate. COMMENTS: Fluid gains fluctuate at or close to EDW Post BP Sit 159/68 - 05/16/2024 150/72 - 05/13/2024 138/69 - 05/11/2024 Post Wt (kg) 92.9 - 05/16/2024 89.0 - 05/13/2024 94.0 - 05/11/2024 EDW (kg) 91.5 - 05/16/2024 91.5 - 05/13/2024 91.5 - 05/11/2024 Deviation (kg) 1.4 - 05/16/2024 -2.5 - 05/13/2024 2.5 - 05/11/2024 ADEQUACY ASSESSMENT Target met. Prescription compliance acceptable. Missed Treatments 0 - Last 30 days 0 - Last 60 days spKt/V (Daugirdas II) 1.47 (05/11/24) 1.48 (04/13/24) 1.45 (03/11/24) eKdrt/V 1.28 (05/11/24) 1.27 (04/13/24) 1.26 (03/11/24) % Urea Reduction 71 (05/11/24) 73 (04/13/24) 71 (03/11/24) BUN 91 (05/11/24) 81 (04/13/24) 70 (03/11/24) BUN Post Dialysis 26 (05/11/24) 22 (04/13/24) 20 (03/11/24) Creatinine 5.32 (05/11/24) 6.16 (04/13/24) 7.10 (03/09/24) Bicarbonate (CO2) 25 (05/11/24) 21 (04/13/24) 21 (03/09/24) Sodium 132 (05/11/24) 132 (04/13/24) 133 (03/09/24) ACCESS ASSESSMENT AVF/AVG positive thrill/bruit. AVFistula Standard Left Forearm Active (In Use) - 10/19/2020 Placed - Unknown Access Flow 860 (03/25/24) 910 (02/24/24) 803 (01/08/24) ANEMIA ASSESSMENT Anemia targets not met. Hemoglobin not at target. MISTY adjusted per protocol. Continue maintenance iron. Hemoglobin 8.6 (05/11/24) 8.7 (05/04/24) 9.5 (04/27/24) Iron Saturation (TSat) 39 (05/11/24) 39 (04/13/24) 56 (03/09/24) Ferritin 1,050 (04/13/24) 1,228 (01/13/24) 903 (10/09/23) Iron 77 (05/11/24) 77 (04/13/24) 103 (03/09/24) TIBC 199 (05/11/24) 197 (04/13/24) 184 (03/09/24) MCV 93 (05/11/24) 94 (04/13/24) 96 (03/09/24) Folate >24.0 (10/05/23) Vitamin B-12 844 (10/05/23) Platelets 177 (05/11/24) 154 (04/13/24) 115 (03/09/24) BMM ASSESSMENT PTH within target. Phosphorus controlled. Calcium controlled. Bone and mineral metabolism parameters reviewed. Calcium 9.4 05/11/24 9.5 04/13/24 9.4 03/09/24 Corrected Calcium 9.6 05/11/24 9.7 04/13/24 9.7 03/09/24 Phosphorus 2.8 05/11/24 2.4 04/13/24 2.4 03/09/24 Calcium Phosphorus Product 26 05/11/24 23 04/13/24 23 03/09/24 PTH 135 04/13/24 143 02/10/24 128 01/13/24 Vitamin D, 25-OH, Total 56.9 04/13/24 67.7 10/05/23 Magnesium 1.9 04/13/24 2.1 01/13/24 1.9 10/09/23 Alkaline Phosphatase 115 04/13/24 107 01/13/24 105 10/09/23 Aluminum 8 04/13/24 <5 10/07/23 8 10/05/23 NUTRITION ASSESSMENT Albumin not at goal. Potassium controlled. Albumin 3.7 05/11/24 3.8 04/13/24 3.6 03/09/24 Potassium 4.9 05/11/24 4.5 04/13/24 4.1 03/09/24 eNPCR 1.38 05/11/24 1.22 04/13/24 1.16 03/11/24 TRANSPLANT STATUS COMMENT COMMENTS: Patient not a candidate for transplant PHYSICAL EXAM Exam performed. Vital Signs Reviewed. Lungs - Clear. CV - Blood pressure noted. CV - RRR. No edema. EXT - No ulcers. ADDITIONAL LABS WBC 5.70 (05/11/24) 9.39 (04/13/24) 5.42 (03/09/24) Hepatitis B Surface Ab 26 (04/13/24) 14 (10/05/23) ADDITIONAL COMMENT COMMENTS: No change in dialysis prescription at this time Signed by: BLANCA SIMON APRN-CNP on 05/18/2024 at 01:02:40 PM Transcribed by: BLANCA SIMON APRN-CNP on 05/18/2024 at 01:02:40 PM documented in this encounter Plan of Treatment Not on file documented as of this encounter Visit Diagnoses Not on filedocumented in this encounter
--- OUTSIDE RECORDS SUMMARY | 2024-07-01 17:03 | XMS_ITS | Encounter Summary ---
Author Organization [facility] Address [address] [place] [address] Care Team Providers Care Portable Sawmill Operator Name Role Phone Unavailable Primary Care Provider Unavailabl e Reason for Visit * Reason Onset Date Comments Hospital Discharge 06/09/2024 [place] Encounter Details Date Type Department Care Team (Late st Contact Info) Description 06/09/2024 Telephone [facility] [address] [place] [address] Nehal Meredith, RN [address] [place] [address] Hospital Discharge ([place]) Social History Tobacco Use Types Packs/Day Years Used Date Smoking Tobacco: Never Assessed Sex and Gender Information Value Date Recorded Sex Assigned at Not on file Legal Sex Male 7:06 PM EDT Gender Identity Not on file Sexual Orientation Not on file documented as of this encounter Miscellaneous Notes * Telephone Encounter - Nehal Meredith RN - 06/09/2024 12:17 PM CST 06/09/2024 Patient Name: Korey Mackay Patient : 1940 Patient Address: [address] [place] [id number] Patient Medications All medications were reviewed with the patient based on the discharge summary dated 06/08/2024 from [facility]. Fluid Assessment: Do you feel you had an appropriate amount of fluid removed/is your fluid status appropriate? Yes. thinks they sometimes remove too much fluid. She notified the dialysis nurse Do you feel short of breath? No Do you have any other symptoms (cramps/dizziness)? Reports leg cramps Barriers to Care: questions if Midodrine will be a correction medication. Advised that it will depend how his BP is on dialysis. She will discuss with Dr. Youssef when he is at dialysis on the . She also questioned why Krill oil was discontinued. Was not able to find any notes on this and she will discuss with PCP on 06/16. She had questions on Lantus insulin and she will contact the PCP. Confirm dialysis location: [facility] [place] [facility] Scheduled date and time: MWF 1140AM Do you have any concerns with getting to your dialysis unit? No Reviewed discharge summary, including in assisting with follow-up appointments, tests or treatmentsordered, coordinating with other providers involved with aftercare, and providing community resources and/or education that were ordered during the patients hospital stay. Nehal Meredith RN documented in this encounter Plan of Treatment Not on file documented as of this encounter Visit Diagnoses Not on filedocumented in this encounter
--- OUTSIDE RECORDS SUMMARY | 2024-07-01 17:03 | XMS_ITS | Encounter Summary ---
Author Organization [facility] Address [address] [place] [address] Care Team Providers Care Placement Director Name Role Phone Unavailable Primary Care Provider Unavailabl e Encounter Details Date Type Department Care Team (Late st Contact Info) Description 06/20/2024 TCM in Dialysis Clinic [facility] [address] [place] [address] Darren Youssef MD [address] [place] [address] Social History Tobacco Use Types Packs/Day Years Used Date Smoking Tobacco: Never Assessed Sex and Gender Information Value Date Recorded Sex Assigned at Not on file Legal Sex Male 7:06 PM EDT Gender Identity Not on file Sexual Orientation Not on file documented as of this encounter Progress Notes * Darren Yuossef MD - 06/20/2024 12:00 AM CST Patient: Korey Mackay : 1940 Note Type: Dialysis TCM Service Date: 06/20/2024 The patient was seen for a [id number] visit as part of Transitional Care Management services. Attending Manual Lathe Operator: DARREN YOUSSEF Dialysis Location: [facility] Schedule: Shift: 2 INTERACTIVE CONTACT Contact with the patient or caregiver was made or attempted within 2 business days of discharge - details in the medical record. COMMENTS: He is doing well after hospital stay. Discussed with as well. Meds updated. Dry weight reduced. HOSPITALIZATION SUMMARY Patient transitioned from: Hospital Patient transitioned to: Home Admit Date: 05/25/2024 Discharge Date: 06/08/2024 Discharged info reviewed: Followed-up on or reviewed need for pending tests/treatments as noted Reason for admission: SOB COMMENTS: Repeat CT 1-2 months for lung mass vs inflammatory change. PCP to order HOME MEDICATIONS Discharge med list reviewed - changes reconciled and discussed with patient. Active treatment medication orders reviewed - no changes. Current [facility] Medications albuterol sulfate 90 mcg/actuation HFA [...] capsule by mouth once a day. Dialyvite [id number] gf-jk-zol-mg tablet Take 1 tablet by mouth every [...] omeprazole Reaction: Nausea/Vomiting Allergen: omeprazole Reaction: Unknown TREATMENT MEDICATIONS ORDERS Iron Sucrose (Venofer) 50 mg IVP 1X Week During Dialysis 04/25/2024 - 04/24/2025 Korsuva (difelikefalin) IVP Dose 0.9 mL IVP 3X Week Post Dialysis 04/13/2024 - 07/03/2024 PHYSICAL EXAM Exam performed. Vital Signs Reviewed. Lungs - Clear. CV - RRR. 1+ edema. DIALYSIS PRESCRIPTION Dry weight during admission reviewed - EDW decreased. Treatment Data Treatment Date: 06/20/2024 started at: [...] 97.4*F Current Dialysis Vitals BP Sit: 151/69 AP/BURN NURSE: -160/220 Pulse: 69 CARE COORDINATION Post-discharge follow-up appointments reviewed with the patient. EDUCATION Education relevant to the discharge diagnosis provided to the patient or caregiver IMPRESSION & PLAN COMMENTS: Stable after hospital stay s/p partial amputation of toe Lower EDW Lung mass vs inflammatory change, repeat CT 2 months by PCP suggested. PCP post- discharge visit completed VISIT DIAGNOSES CPT Code 44702 - High complexity, seen 8-14 days post discharge or moderate complexity, seen days of discharge. 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
--- OUTSIDE RECORDS SUMMARY | 2024-07-01 17:03 | XMS_ITS | Encounter Summary ---
Author Organization [facility] Address [address] [place] [address] Care Team Providers Care Journeyman Electrician Pv Installer Name Role Phone Unavailable Primary Care Provider Unavailabl e Encounter Details Date Type Department Care Team (Late st Contact Info) Description 06/15/2024 Orders Only [facility] [address] [facility] [address] [place] [address] Darren Youssef MD [address] [place] [address] Social History Tobacco Use Types [...] Date/Time Associated Diagnosis Comments HD KINETICS Routine 06/15/2024 POST CHEMISTRY Routine 06/15/2024 IMMUNO CHEMISTRY Routine 06/15/2024 HEMATOLOGY Routine 06/15/2024 CHEMISTRY Routine 06/15/2024 [facility] Routine 06/15/2024 documented in this encounter Results * [facility] Results (06/15/2024) spKt/V Gotch 1.20 [facility] nPCR_HD 1.13 [facility] eKt/V Gotch 1.02 [facility] eKt/V ([place]) 1.02 [facility] eKdrt/V 1.02 [facility] WSTDKT/V 2.1 [facility] eNPCR 1.04 [facility] spKt/V ([place]augirdas II) 1.19 [facility] PCR 79.26 [facility] 06/15/2024 06/15/2024 [facility] Ordering Provider LAB BLOOD ORDERABLES Final Result Knowledge Center Contact Performing lab Unknown, [place] * (ABNORMAL) HEMATOLOGY (06/15/2024) Neutrophils 70.5 40.0 - 75.0 % [facility] Lymphocytes Relative 11.9(L) 19.0 - 48.0 % [facility] Monocytes 8.3 3.0 - 10.0 % [facility] Eosinophils Relative 4.1 0.0 - 7.0 % [facility] Basophils Relative 0.3 0.0 - 1.5 % [facility] COURTNEY 4.9(H) 0.0 - 4.0 % [facility] WBC 5.77 4.80 - 10.80 1000/mcL [facility] RBC 2.49(L) 4.70 - 6.10 mill/mcL [facility] Hematocrit 23.6(L) 42.0 - 52.0 % [facility] MCV 95 80 - 100 fl [facility] MCH 32.9(H) 27.0 - 31.0 pg [facility] MCHC 34.7 30.0 - 36.0 g/dL [facility] RDW 15.7(H) 11.5 - 14.5 % [facility] Hemoglobin 8.2(L) 14.0 - 18.0 g/dL [facility] Hemoglobin x 3 24.6(L) 42.0 - 54.0 % [facility] Platelets 191 130 - 400 1000/mcL [facility] 06/15/2024 06/16/2024 12: 18 PM MECHANICAL DESIGN ENGINEER Narrative [facility] - 06/16/2024 Unless otherwise specified, test(s) performed at: [facility], [address] [place] [address], [place] [address] CENSUS CLERK: Rojas Kirkland M.D., Ph.D For any questions, please call customer service at FREQUENCY:MONTHLY Resulting Agency Comment Specimen source: Blood Darren Youssef MD LAB BLOOD ORDERABLES Final Re sult Performing Organization Address [facility] de Phone Number [facility] See order comments or contact performing lab Unknown, [place] * HD KINETICS (06/15/2024) % Urea Reduction 65 65 - 80 % [facility] 06/15/2024 06/16/2024 10: 29 AM MECHANICAL DESIGN ENGINEER Narrative Resulting Agency Comment Specimen source: Plasma Darren Yousesf MD LAB BLOOD ORDERABLES Final Re sult Performing Organization Address [facility] Phone Number [facility] See order comments or contact performing lab Unknown, [place] * (ABNORMAL) POST CHEMISTRY (06/15/2024) BUN Post Dialysis 27(H) 6 - 19 mg/dL [facility] 06/15/2024 06/16/2024 10: 29 AM MECHANICAL DESIGN ENGINEER Narrative [facility] - 06/16/2024 Unless otherwise specified, test(s) performed at: [facility], [address] [place] [address], [place] [address] CENSUS CLERK: Rojas Kirkland M.D., Ph.D For any questions, please call customer service at FREQUENCY:MONTHLY Resulting Agency Comment Specimen source: Plasma Darren Youssef MD LAB BLOOD ORDERABLES Final Re sult Performing Organization Address [facility] de Phone Number [facility] See order comments or contact performing lab Unknown, [place] * (ABNORMAL) [facility] (06/15/2024) BUN 77(H) 6 - 19 mg/dL [facility] Creatinine 5.79(H) 0.60 - 1.30 mg/dL [facility] BUN/Creatinine Ratio 13.3 10.0 - 20.0 [facility] Sodium 135(L) 136 - 145 mEq/L [facility] Potassium 3.8 3.5 - 5.1 mEq/L [facility] Chloride 96 96 - 108 mEq/L [facility] Bicarbonate (CO2) 25 20 - 31 mEq/L [facility] Calcium 9.8 8.7 - 10.4 mg/dL [facility] Comment: Please note change in reference range. Corrected Calcium 9.9 8.7 - 10.4 mg/dL [facility] Comment: Corrected Calcium is not equivalent to measured Ionized Calcium. Phosphorus 3.3 2.6 - 4.5 mg/dL [facility] Calcium Phosphorus Product 32 0 - 54 [facility] Calcium Phosporus Product, Cor 33 0 - 54 [facility] Total Protein 7.5 6.0 - 8.5 g/dL [facility] Albumin 3.9 3.5 - 5.2 g/dL [facility] Globulin, Total 3.6 2.0 - 4.0 g/dL [facility] A/G Ratio 1.1 1.0 - 2.0 [facility] Iron 81 45 - 160 mcg/dL [facility] UIBC 127(L) 155 - 355 mcg/dL [facility] TIBC 208 185 - 515 mcg/dL [facility] Iron Saturation (TSat) 39 20 - 55 % [facility] 06/15/2024 06/16/2024 9:2 4 AM MECHANICAL DESIGN ENGINEER Narrative [facility]24 Unless otherwise specified, test(s) performed at: [facility] [place] [address] CENSUS CLERK: Rojas Kirkland M.D., Ph.D For any questions, please call customer service at FREQUENCY:MONTHLY Resulting Agency Comment Specimen source: Serum us Darren Youssef MD LAB BLOOD ORDERABLES Final Re sult [facility] See order comments or contact performing lab Unknown, [place] * IMMUNO CHEMISTRY (06/15/2024) Hep B Surface Ag Negative Negative [facility] 06/15/2024 06/16/2024 10: 07 AM MECHANICAL DESIGN ENGINEER Narrative [facility] - 06/16/2024 Unless otherwise specified, test(s) performed at: [facility], [address] [place] [address], [place] [address] CENSUS CLERK: Rojas Kirkland M.D., Ph.D For any questions, please call customer service at FREQUENCY:MONTHLY Resulting Agency Comment Specimen source: Plasma us Darren Youssef MD LAB BLOOD ORDERABLES Final Re sult [facility] See order comments or contact performing lab Unknown, [place] documented in this encounter Visit Diagnoses Not on filedocumented in this encounter
--- OUTSIDE RECORDS SUMMARY | 2024-07-01 17:03 | XMS_ITS | Clinical Summary ---
Author Organization [employer] [facility] [employer] Address [place], [place] [address] Care Team Providers Care Assurance Services Manager Health Care Name Role Phone Anna Marie Oglesby DO Primary Care Provider [phone] [facility] [place] Unavailable [phone] [facility] [place] Unavailable Allergies Active Allergy Reactions Criticality Noted Date Comments Doxycycline Rash 04/06/2004 Atorvastatin Other - Describe In Comment Field 07/04/2006 bad pain in legs per pt. Lisinopril GI Upset 07/06/2006 Metoclopramide Other - Describe In Comment Field 11/07/2015 Gynecomastia Omeprazole Diarrhea 09/04/2015 Per home med list. Tolerates protonix. Medications ALBUTEROL SULFATE HFA 90 MCG/ACTUATION AEROSOL INHALER Inhale 2 Puffs by mouth every 4 hours if needed. 0 09/20/19 08 Active nitroglycerin (NITROSTAT) 0.[address] 1 tablet under the tongue every 5 minutes if needed for Chest Pain. 1 Bottle 6 10/26/19 11 Active coenzyme q10 (CO Q-10) 100 mg cap Take 100 mg by mouth once daily. Active loratadine (CLARITIN) 10 mg tablet Take 10 mg by mouth once daily. Active montelukast (SINGULAIR) 10 mg tabletIndication s:Other allergic rhinitis Take 1 tablet by mouth at bedtime. 90 tablet 3 09/05/19 17 Active cholecalciferol (VITAMIN D-3) 2,000 unit capsule Take 2,000 Units by mouth once daily. 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 Hold x 5 days. Resume taking on 11/23/2019. 0 11/18/19 20 Active vitamin e 400 unit capsule Take 1 capsule by mouth once daily. 0 03/22/20 20 Active CPAP Use at bedtime CPAP machine for home use at pressure auto set Settings can be updated with home settings if known. 1 Each 02/14/20 21 Active hydrocortisone 2.5% creamIndications :Hemorrhoids, external Apply topically to affected area(s) 2 times daily if needed for Itching (Pain). 30 g 11/27/19 23 Active insulin aspart, U-100, (NovoLOG FlexPen U-100 Insulin) 100 unit/mL (3 mL) pen Inject 5 units subcutaneous three times daily before meals. Active sennosides (Senna) 8.6 mg tablet Take 8.6 mg by mouth 2 times daily if needed. Active cycloSPORINE (Restasis) 0.05 % ophthalmic emulsion Place 1 Drop into both eyes two times daily. Active acetaminophen SR (Tylenol Arthritis Pain) 650 mg Extended-Release tablet Take 650 mg by mouth every 8 hours if needed. Max acetaminophen dose: 4000mg in 24 hrs. Active methyl salicylate-menth ol (ARY BECKMAN; MENTHOLATUM DEEP HEAT) 15-10 % topical creamIndications :Pain of lower extremity, unspecified laterality Apply topically to affected area(s) 3 times daily if needed (pain). 85 g 01/03/20 23 Active guaiFENesin 100 mg/5 mL liquidIndication s:Chronic cough Take 5 mL (100 mg) by mouth every 4 hours if needed for Expectoration. 118 mL 6 03/03/20 23 Active pantoprazole (PROTONIX) 40 mg delayed-release tablet Take 40 mg by mouth once daily. Active Vit B Cplx #[id number]-Zi nc (Dialyvite) [phone] us-zd-enf-mg tablet Take 1 Tablet by mouth once daily. 07/02/19 24 Active clopidogreL (Plavix) 75 mg tabletIndication s:Bilateral carotid artery stenosis,Coronar y artery disease, unspecified vessel or lesion type, unspecified whether angina present, unspecified whether [place] or transplanted heart Take 1 Tablet (75 mg) by mouth once daily. Re order from 03/25/24 90 Tablet 3 06/06/20 24 Active polyethylene glycol (Miralax) 17 g per packet packet Mix 1 Packet in liquid then take by mouth once daily if needed for Constipation. Active fluticasone propion-salmeter oL (Wixela Inhub) 250-50 mcg/Dose diskus inhaler Inhale 1 Puff by mouth every 12 hours. Active levothyroxine (SYNTHROID) 200 mcg tablet Take 200 mcg by mouth before breakfast. Active pravastatin (PRAVACHOL) 40 mg tablet Take 40 mg by mouth with dinner. Active tiotropium bromide (SPIRIVA RESPIMAT) 2.5 mcg/actuation mist for inhalation Inhale 2 Puffs by mouth once daily. Active emollient base (VANICREAM TOP) Apply topically to affected area(s) once daily. (all over body) Active zinc gluconate (ZINC ORAL) Take 1 Tablet by mouth once daily if needed (sick). Active carboxymethylcel lulose (REFRESH CELLUVISC) 1 % eye gel in dropperette Place 1 Drop into both eyes two times daily. Active medication order composer Lidocaine 4% cream- apply topically as needed for pain Active Midodrine HCl 10 mg tabletIndication s:Hypotension, unspecified hypotension type Take 1 Tablet (10 mg) by mouth 2 times daily at 8 AM and 4 PM. May take 1 Tablet (10 mg) by mouth during dialysis as needed 120 Tablet 1 5 11:00 AM PHOTO MASK INSPECTOR 06/08/19 25 Active xclee-mg-8-dha-e si-ohjwbdu-ttz (MEGARED OMEGA-3 KRILL OIL) 1,000-230-60 mg cap Take 1 capsule by mouth once daily. 025 Discontinu ed(*IP Discontinu ed) diphenhydrAMINE (Benadryl Allergy) 25 mg tablet Take 25 mg by mouth every 4 hours if needed. 025 Discontinu ed(*IP Discontinu ed) insulin glargine-yfgn, U-100, (SEMGLEE) 100 unit/mL injection Inject 18 units subcutaneous once daily in the evening. at 1800 025 Discontinu ed(*IP Discontinu ed) Midodrine HCl 10 mg tabletIndication s:Hypotension, unspecified hypotension type Take 1 Tablet (10 mg) by mouth during dialysis. 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 06/02/2024 Osteomyelitis of left foot 06/02/2024 Foot ulcer due to secondary DM 06/01/2024 Cellulitis in diabetic foot 06/01/2024 Acute on chronic systolic heart failure 05/25/20 ACP (advance care planning) 05/25/2024 Protein-calorie malnutrition, unspecified severi ty 01/12/2024 Bilateral carotid artery stenosis 01/12/2024 Pneumonia of left lower lobe due to [...] disease, or end stage renal disease 11/04/2022 Secondary hyperparathyroidism of renal origin Coagulation defect, unspecified 11/04/2022 Pneumonia due to COVID-19 virus 02/06/2021 [facility] (current) use of insulin 10/19/2020 CKD (chronic kidney disease) stage 5, GFR less than 15 ml/min 10/29/2018 Calculus of gallbladder without cholecystitis Second degree heart block 08/07/2016 Overview (08/07/2016): Arie 1 History of surgical site infection 04/11/2016 Allergic rhinitis 10/31/2015 Fracture of fibula with tibia, left, closed 11/2014 Pulmonary emphysema 04/13/2015 Acquired hypothyroidism 04/13/2015 CHLOE (obstructive sleep apnea) 07/20/2013 Asbestosis(501) 12/26/2010 Overview (12/26/2010): Needs annual CXR and PFT's Colon polyps 06/22/2009 Overview (03/20/2010): Colonoscopy 03/2010 polyp, poor prep repeat in 3 years Detached retina 10/10/2008 Overview (10/10/2008): L eye 2006 Gastroesophageal reflux disease with esophagitis 06/09/2008 Diabetic foot ulcer 05/24/2008 Unspecified essential hypertension 05/24/2008 Charcot foot 03/30/2008 Overview (05/24/2008): Bilateral due to his diabetic peripheral Benign neoplasm of colon 10/07/2007 Overview (03/16/2013): Colonoscopy 03/2013 normal repeat in 5 years Unspecified constipation 07/13/2006 STATUS POST CABG 07/09/06 07/10/2006 Overview (07/14/2006): Coronary artery bypass x4, left internal mammary artery to left anterior descending, saphenous vein to obtuse marginal 1, saphenous vein to obtuse marginal 2, saphenous vein to diagonals. Pure hypercholesterolemia Acute myocardial infarction, unspecified site, episode of care unspecified Overview (07/10/2006): Non Q [place] 06/14 Atherosclerosis of [place] co ronary artery of [place] heart with angina pectoris Overview (07/10/2006): Status post CABG x4; 07/09/06 Personal history of contact with and (suspected) exposure to asbestos Overview (10/07/2007): With abnl lung nodules Ischemic cardiomyopathy Chronic airway obstruction, not elsewhere classi fied Anemia of chronic renal failure Resolved Problems Problem Noted Date Diagnosed Date Resolved Date Ulcer of left foot with bone involvement without evidence of necrosis 06/01/2024 06/16/2024 Atrioventricular block, complete 11/04/2022 06/16/2024 COVID 02/06/2021 02/06/2021 Respiratory distress 02/06/2021 025 Diabetic retinopathy associa fareed with type 2 [...] stage 5 chronic kidney disease 11/11/2018 02/06/2021 Severe obesity (BMI 35.0-39. 9) with comorbidity 03/17/2017 06/16/2024 Right upper lobe pneumonia 07/27/2016 0 06/16/2024 Leg erythema 04/11/2016 06/16/2024 Anticoagulation monitoring, INR range 2-3 10/30/2015 04/09/2016 Anticoagulation monitoring, special range [Z79.01] (1.8-2.5) 10/30/2015 12/19/2015 Type 2 diabetes mellitus wit h diabetic nephropathy 04/13/2015 10/31/2015 CKD (chronic kidney disease) stage 4, GFR 15-29 ml/min 04/13/2015 05/19/2019 DM Renal Manif Type II 01/18/201309/03 DM Renal Manif Type II 01/18/201309/03 Sleep apnea 10/08/2010 09/04/2015 DM Renal Manif Type II 06/10/200809/03 Overview (06/10/2008): Creatinine 1.4 -1.5 Type II or unspecified type diabetes mellitus with neurological manifestations, not stated as uncontrolled 06/10/2008 04/09/2016 Overview (06/10/2008): Dx 1987 Type 2 diabetes mellitus wit h stage 4 chronic kidney disease 06/10/2008 10/29/2018 Overview (06/10/2008): L foot ulcer Unspecified hypothyroidism 12/28/2007 0 09/04/2015 Edema 09/20/2007 04/09/2016 Type II or unspecified type diabetes mellitus without mention of complication, not stated as uncontrolled 09/20/2007 Cough 07/16/2006 Hypervolemia 08/07/2016 Encounters Date Type Department Care Team Description 06/28/2024 4:00 PM PHOTO MASK INSPECTOR Office Visit [facility] [address] [place] [address] Sneha De La Cruz MD CV Vascular Est (4 month follow up; discuss canceled carotid intervention. U/S scheduled prior. ) 06/28/2024 3:00 PM PHOTO MASK INSPECTOR - 06/28/2024 11:59 PM PHOTO MASK INSPECTOR Hospital Encounter [facility] [address] [place] [address] Sneha De La Cruz MD Leistner, Joseph S, R.T. (ARRT) Bilateral carotid artery stenosis 06/28/2024 11:10 AM PHOTO MASK INSPECTOR Office Visit [facility] [address] [place] [address] Zeny Medley MD Musculoskeletal Problem (R shoulder/neck pain x 1 month); Leg Pain/problem (Upper thigh pain since angiogram ) 06/28/2024 Travel 06/23/2024 1:00 PM PHOTO MASK INSPECTOR Home Care Visit [facility] [address] [place] [address] Michelle Garnica RN SN - OASIS DISCHARGE 06/23/2024 9:45 AM PHOTO MASK INSPECTOR Office Visit [facility] [place] [place] [phone] Braulio Philippe DPM Post-op (Left foot, DOS 06/05/24, 2 week post op) 06/23/2024 Travel 06/20/2024 Telephone [facility] [address] [place] [address] [address] [place] [address] Pankaj Brownlee MD Medication Management (SPIRIVA) 06/16/2024 2:55 PM PHOTO MASK INSPECTOR Office Visit [facility] [address] [place] [address] Braden Wilder MD Hospital F/U ([place], 05/25/2024 - 06/08/2024, pneumonia ) 06/16/2024 Travel 06/14/2024 1:00 PM PHOTO MASK INSPECTOR Home Care Visit [facility] [address] [place] [address] Michelle Garnica, RFANCIA SN - HOME VISIT 06/13/2024 3:45 AM PHOTO MASK INSPECTOR Home Care Visit [facility] [address] [place] [address] Kristie Perera, FRANCIA SN - WOUND/OSTOMY CHART CONSULT 06/11/2024 11:00 AM PHOTO MASK INSPECTOR Home Care Visit [facility] [address] [place] [address] Kelsy Yi, FRANCIA SN - OASIS START OF CARE 06/11/2024 Telephone [facility] [address] [place] [phone] Kelsy Yi, periodontist (Need ongoing orders for home health) 06/11/2024 Plan of Care Documentation [facility] [address] [place] [phone] 06/09/2024 Home Care Visit [facility] [address] [place] [phone] Danitza Strange, RN CARE COORDINATION 06/09/2024 Patient Outreach [facility] [address] [place] [address] Sharri Osei, FRANCIA Hospital /U; Primary RN Care Management (LEOBARDO Toscano) 06/07/2024 Travel 06/05/2024 7:20 AM PHOTO MASK INSPECTOR - 06/05/2024 8:31 AM PHOTO MASK INSPECTOR Surgery [facility] [address] [place] [address] Phillip Hutton DPM LEFT PARTIAL HALLUX AMPUTATION 06/05/2024 7:12 AM PHOTO MASK INSPECTOR Anesthesia Event [facility] [address] [place] [address] Magalis John MD Schumacher, Donna Mae Brockman, JUDIE 06/04/2024 Orders Only [facility] [address] [place] [phone] StElier love PA <No scans attached> 06/04/2024 Orders Only [facility] [address] [place] [phone] StrElier PA <No scans attached> 06/03/2024 1:41 PM PHOTO MASK INSPECTOR Anesthesia Event [facility] [address] [place] [address] Dominguez Gomez MD Schulte, Whitney R, W[employer] PROJECTS SUPERVISOR 06/03/2024 Travel 05/31/2024 Travel 05/25/2024 4:55 AM PHOTO MASK INSPECTOR - 06/08/2024 2:56 PM PHOTO MASK INSPECTOR Hospital Encounter [facility] [address] [place] [address] [facility], [facility] Hospitalist Sheyla Wiley MD Thielman, DO German Aggarwal, MD Avril Anderson, MD Sergio Andrea, Phillip Wall DO 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); Hypotension, unspecified hypotension type Discharge Disposition: Home Health 05/25/2024 Travel 05/19/2024 1:00 PM PHOTO MASK INSPECTOR Office Visit [facility] [address] [place] [address] Trey Carlson MD Wound Check (on the bottom- has had for about 6 weeks/Has been using butt cream bacitracin and other otc creams ) 05/19/2024 Travel 05/16/2024 Refill [facility] [address] [place] [address] Anna Marie Oglesby, Refill Request (clopidogreL (Plavix) 75 mg table//) 04/29/2024 Telephone [facility] [address] [place] [address] [place] [address] Arnie Jin MD Concerns 04/19/2024 10:30 AM PHOTO MASK INSPECTOR Office Visit [facility] [address] [place] [phone] Arnie Jin MD Follow Up (Surgery canceled due to blockage/CTA 03/22/24) 04/19/2024 Travel from Last 3 Months Immunizations Name [...] 03/14/2022,03/08/2021 Influenza, IIV3 (Age >=3 years) 03/20/2008,04/10,05/01/1995 Influenza, RIV3 (Age =>18 Years) 03/23/2024 Pneumococcal Poly,23-Valent (Pneumovax) 03/19/1994 Pneumococcal conj 13-Valent [...] in 74 Alcohol Use Standard Drinks/Week Comments Not Currently 0 (1 standard drink = 0.6 oz pur e alcohol) PHQ-2 Answer Date Recorded PHQ-2 TOTAL SCORE 2 01/12/2024 Social Connections Answer Date Recorded Do you often feel lonely or isolated from those around you? 0 05/25/2024 Financial Resource Strain Answer Date R ecorded Difficulty of Paying Living Expenses 3 05/19/2024 Difficulty of Paying Living Expenses Not on file 05/19/2024 Food Insecurity Answer Date Recorded Do you worry your food will run out before you are able to buy more? 1 05/25/2024 Transportation Needs Answer Date Record ed Does lack of transportation keep you from medica l appointments? 1 05/25/2024 Does lack of transportation keep you from work, meetings or getting things that you need? 1 05/25/2024 Housing Stability Answer Date Recorded What is your housing situation today? 1 05/25/2024 Interpersonal Safety Answer Date Record ed Are you being hit, kicked, p ushed or yelled at (see row info)? No 05/25/2024 Interpersonal Safety Abuse 12 - 18 Not on file 05/25/2024 Interpersonal Safety Ambulatory Vulnerability No t on file 05/25/2024 Utilities Answer Date Recorded Do you have trouble paying f or utilities (for example, heat, electricity, water, phone)? 1 05/25/2024 Sex and Gender Information Value Date Recorded Sex Assigned at Not on file Legal Sex Male 5:26 AM PHOTO MASK INSPECTOR Gender Identity Not on file Sexual Orientation Not on file Occupation Industry Job Start Date Job End Date retired Not on file Not on file Not on file Obstetrics History Last Filed Vital Signs Vital Sign Reading Time Taken Comments Blood Pressure 136/66 06/28/2024 3:44 PM PHOTO MASK INSPECTOR Pulse 70 06/28/2024 3:44 PM PHOTO MASK INSPECTOR Temperature 36.9 C (98.4 F) 06/23/2024 12:55 PM PHOTO MASK INSPECTOR Respiratory Rate 18 06/23/2024 12:55 PM PHOTO MASK INSPECTOR Oxygen Saturation 98% 06/28/2024 3:44 PM PHOTO MASK INSPECTOR Inhaled Oxygen Concentration - - Weight 86.8 kg (191 lb 6.4 oz) 06/16/2024 2:48 P M PHOTO MASK INSPECTOR Height 182.9 cm (6') 06/11/2024 11:20 AM PHOTO MASK INSPECTOR Body Mass Index 25.96 06/11/2024 11:20 AM PHOTO MASK INSPECTOR Plan of Treatment Upcoming Encounters Date Type Department Care Team (Late st Contact Info) Description 07/07/2024 9:30 AM PHOTO MASK INSPECTOR Office Visit [facility] [address] [address] [facility] [address] [place] [address] Braulio Philippe DPM [address] [place] [address] 07/19/2024 11:00 AM PHOTO MASK INSPECTOR Office Visit [facility] [address] [place] [address] Anna Marie Oglesby, DO [address] [place] [address] 07/20/2024 2:30 PM PHOTO MASK INSPECTOR Office Visit [facility] [address] [facility] [address] [place] [phone] Trang Monroy MBBS [address] [place] [address] 07/21/2024 1:00 PM PHOTO MASK INSPECTOR Appointment [facility] [address] [place] [address] 07/21/2024 1:45 PM PHOTO MASK INSPECTOR Appointment [facility] [address] [place] [address] 10/14/2024 Cardiac Device Check [facility] [phone] Health Maintenance Due Date Last Done Comments RSV vaccine for adults or (1 - 1-dose 75+ series) 2013 Pneumococcal series for age 50+ (3 of 3 - PPSV23, PCV20 or PCV21) 06/06/2015 04/11/2015, 03/23/2013, 08/25/2003, Additional history exists COVID-19 vaccine series ( season) 2024 03/17/2022, 10/10/2021, 04/04/2021, Additional history exists Depression screening for age 12+ 01/11/2025 01/12/2024, 11/05/2022, 11/05/2022, Additional history exists Medicare Wellness for age 65+ 01/12/2025, 11/04/2022, 05/19/2019 BMI (ht and wt on same day) for age 18+ 03/03/2025 03/03/2024, 03/03/2023, 02/27/2022, Additional history exists Tetanus booster 12/18/2032 12/18/2022, 06/09, 03/24/2008, Additional history exists Zoster (shingles) series for age 50+ Completed 09/18/2020, 03/15/2020, 06/08/2013, Additional history exists Tdap Completed 12/18/2022, 06/29/2012 Influenza for age 65+ Completed 03/23/2024 , 03/14/2022, 03/10/2022, Additional history exists Medical Devices Implanted Type Area Train Control Electronic Technician Device Identifier Shelf Expiration Date Model / Serial / Lot Screw Sm Joint 3.5x80mm Os Slf Tppng Bob - [id number] Implanted:Qty: 1 on 04/15/2015 by Rj Bui MD at [facility] Left: Leg [employer] [id number]# / / Screw Sm Joint 4x85mm Axs[employer] Lock Slf Tppng [address] - [id number] Implanted:Qty: 1 on 04/15/2015 by Rj Bui MD at [facility] Left: Leg [employer] [id number]# / / Screw Sm Joint 3.5x75mm Os Slf Tppng Bob - [id number] Implanted:Qty: 1 on 04/15/2015 by Rj Bui MD at [facility] Left: Leg [employer] [id number]# / / Screw Sm Joint 3.5x85mm Os Slf Tppng Bob - [id number] Implanted:Qty: 1 on 04/15/2015 by Rj Bui MD at [facility] Left: Leg [employer] [id number] / / Plate Tib Lt 10 Hole [employer] Lateral - [id number] Implanted:Qty: 1 on 04/15/2015 by Rj Bui MD at [facility] Left: Leg [employer] [id number]# / / Screw Sm Joint 3.5x28mm Os Slf Tppng Bob - [id number] Implanted:Qty: 1 on 04/15/2015 by Rj Bui MD at [facility] Left: Leg [employer] [id number]# / / Screw Sm Joint 3.5x30mm Os Slf Tppng Bob - [id number] Implanted:Qty: 1 on 04/15/2015 by Rj Bui MD at [facility] Left: Leg [employer] [id number]# / / Screw Sm Joint 3.5x32mm Os Slf Tppng Bob - [id number] Implanted:Qty: 1 on 04/15/2015 by Rj Bui MD at [facility] Left: Leg [employer] [id number]# / / Screw Sm Joint 4x26mm [employer] Lock Slf Tppng [address] - [id number] Implanted:Qty: 1 on 04/15/2015 by Rj Bui MD at [facility] Left: Leg [employer] [id number]# / / Explanted Type Area Train Control Electronic Technician Device Identifier Shelf Expiration Date Model / Serial / Lot K-Wire [employer] 10pk - [id number] Explanted:Qty: 2 on 04/15/2015 at [facility] Left: Leg [employer] [id number]# / / Procedures Procedure Name Priority Date/Time Associated Diagnosis Comments US CAROTID DUPLEX BILATERAL Routine 06/28/2024 3:35 PM PHOTO MASK INSPECTOR Bilateral carotid artery stenosis GLUCOSE METER Timed 06/08/2024 8:11 AM PHOTO MASK INSPECTOR SCAN-CARDIAC STRIP 06/08/2024 12 :57 AM PHOTO MASK INSPECTOR GLUCOSE METER Timed 06/07/2024 9:02 PM PHOTO MASK INSPECTOR SCAN-CARDIAC STRIP 06/07/2024 4: 16 PM PHOTO MASK INSPECTOR PLATELET COUNT Today 06/07/2024 10:53 AM PHOTO MASK INSPECTOR BASIC METABOLIC PANEL Early AM 06/07/2024 10:53 AM PHOTO MASK INSPECTOR SCAN-CARDIAC STRIP 06/07/2024 10 :39 AM PHOTO MASK INSPECTOR GLUCOSE METER Timed 06/07/2024 7:58 AM PHOTO MASK INSPECTOR GLUCOSE METER Timed 06/06/2024 9:30 PM PHOTO MASK INSPECTOR GLUCOSE METER Timed 06/06/2024 5:06 PM PHOTO MASK INSPECTOR SCAN-CARDIAC STRIP 06/06/2024 4: 02 PM PHOTO MASK INSPECTOR GLUCOSE METER Timed 06/06/2024 12:14 PM PHOTO MASK INSPECTOR GLUCOSE METER Timed 06/06/2024 8:20 AM PHOTO MASK INSPECTOR SCAN-CARDIAC STRIP 06/05/2024 4: 51 PM PHOTO MASK INSPECTOR GLUCOSE METER Timed 06/05/2024 4:[address] HEAD BRAIN WO STAT 06/05/2024 4:00 PM PHOTO MASK INSPECTOR SCAN-CARDIAC STRIP 06/05/2024 2: 52 PM PHOTO MASK INSPECTOR SCAN-CARDIAC STRIP 06/05/2024 2: 52 PM PHOTO MASK INSPECTOR XR FOOT 3 VIEWS LEFT PORTABLE Routine 06/05/2024 8:56 AM PHOTO MASK INSPECTOR TISSUE CULTURE, STAIN (AEROBIC) Today 06/05/2024 7:42 AM PHOTO MASK INSPECTOR ANAEROBIC CULTURE Today 06/05/2024 7:4 2 AM PHOTO MASK INSPECTOR PATH TISSUE EXAM Today 06/05/2024 7:40 AM PHOTO MASK INSPECTOR GLUCOSE METER Timed 06/05/2024 7:11 AM PHOTO MASK INSPECTOR AMPUTATION TOE 06/05/2024 7:02 AM PHOTO MASK INSPECTOR LEFT HALLUX INFECTION Case Notes SAGITTAL SAW GLUCOSE METER Timed 06/04/2024 10:57 PM PHOTO MASK INSPECTOR SCAN-CARDIAC STRIP 06/04/2024 8: 40 PM PHOTO MASK INSPECTOR SCAN-CARDIAC STRIP 06/04/2024 8: 40 PM PHOTO MASK INSPECTOR GLUCOSE METER Timed 06/04/2024 4:52 PM PHOTO MASK INSPECTOR BASIC METABOLIC PANEL Today 06/04/2024 9:54 AM PHOTO MASK INSPECTOR GLUCOSE METER Timed 06/04/2024 8:37 AM PHOTO MASK INSPECTOR SCAN-CARDIAC STRIP 06/04/2024 8: 15 AM PHOTO MASK INSPECTOR SCAN-CARDIAC STRIP 06/04/2024 2: 25 AM PHOTO MASK INSPECTOR HEMOGLOBIN STAT 06/03/2024 8:05 PM PHOTO MASK INSPECTOR BASIC METABOLIC PANEL Today 06/03/2024 8:05 PM PHOTO MASK INSPECTOR GLUCOSE METER Timed 06/03/2024 7:36 PM PHOTO MASK INSPECTOR HCHG ACTIVATED CLOTTING TM CV Timed 06/03/2024 3:09 PM PHOTO MASK INSPECTOR HCHG ACTIVATED CLOTTING TM CV Timed 06/03/2024 2:38 PM PHOTO MASK INSPECTOR GLUCOSE METER Timed 06/03/2024 12:30 PM PHOTO MASK INSPECTOR CBC W PLT NO DIFF Early AM 06/03/2024 9:5 9 AM PHOTO MASK INSPECTOR SCAN-CARDIAC STRIP 06/03/2024 9: 43 AM PHOTO MASK INSPECTOR GLUCOSE METER Timed 06/03/2024 8:12 AM PHOTO MASK INSPECTOR GLUCOSE METER Timed 06/02/2024 9:05 PM PHOTO MASK INSPECTOR IR PICC LINE Routine 06/02/2024 3:26 PM PHOTO MASK INSPECTOR GLUCOSE METER Timed 06/02/2024 1:39 PM PHOTO MASK INSPECTOR MR FOOT LEFT WO Routine 06/02/2024 11:30 AM PHOTO MASK INSPECTOR SCAN-CARDIAC STRIP 06/02/2024 9: 44 AM PHOTO MASK INSPECTOR GLUCOSE METER Timed 06/02/2024 7:59 AM PHOTO MASK INSPECTOR GLUCOSE METER Timed 06/02/2024 6:58 AM PHOTO MASK INSPECTOR HEMOGLOBIN Early AM 06/02/2024 6:15 AM PHOTO MASK INSPECTOR WHITE BLOOD COUNT Early AM 06/02/2024 6:1 5 AM PHOTO MASK INSPECTOR BASIC METABOLIC PANEL Early AM 06/02/2024 6:15 AM PHOTO MASK INSPECTOR GLUCOSE METER Timed 06/01/2024 10:09 PM PHOTO MASK INSPECTOR US ARTERIAL LOWER EXTREMITY W RITA BILATERAL Routine 06/01/2024 8:15 PM PHOTO MASK INSPECTOR GLUCOSE METER Timed 06/01/2024 5:09 PM PHOTO MASK INSPECTOR GLUCOSE METER Timed 06/01/2024 8:28 AM PHOTO MASK INSPECTOR SCAN-CARDIAC STRIP 06/01/2024 7: 51 AM PHOTO MASK INSPECTOR VANCOMYCIN Early AM 06/01/2024 6:29 AM PHOTO MASK INSPECTOR HEMOGLOBIN Early AM 06/01/2024 6:29 AM PHOTO MASK INSPECTOR WHITE BLOOD COUNT Early AM 06/01/2024 6:2 9 AM PHOTO MASK INSPECTOR BASIC METABOLIC PANEL Early AM 06/01/2024 6:29 AM PHOTO MASK INSPECTOR GLUCOSE METER Timed 05/31/2024 11:03 PM PHOTO MASK INSPECTOR GLUCOSE METER Timed 05/31/2024 6:20 PM PHOTO MASK INSPECTOR ANAEROBIC CULTURE Today 05/31/2024 4:3 3 PM PHOTO MASK INSPECTOR AEROBIC BACTERIAL CULTURE, STAIN Today 05/31/2024 4:33 PM PHOTO MASK INSPECTOR XR FOOT 3 VIEWS LEFT SUZI 05/31/2024 1:53 PM PHOTO MASK INSPECTOR ECHO TTE COMPLETE WO CONTRAST Routine 05/31/2024 12:49 PM PHOTO MASK INSPECTOR GLUCOSE METER Timed 05/31/2024 11:55 AM PHOTO MASK INSPECTOR GLUCOSE METER Timed 05/31/2024 8:57 AM PHOTO MASK INSPECTOR SCAN-CARDIAC STRIP 05/31/2024 7: 47 AM PHOTO MASK INSPECTOR HEMOGLOBIN A1C SUZI 05/31/2024 7:21 AM PHOTO MASK INSPECTOR PLATELET COUNT SUZI 05/31/2024 7:21 AM PHOTO MASK INSPECTOR MAGNESIUM Add On 05/31/2024 7:21 AM PHOTO MASK INSPECTOR HEMOGLOBIN Early AM 05/31/2024 7:21 AM PHOTO MASK INSPECTOR WHITE BLOOD COUNT Early AM 05/31/2024 7:2 1 AM PHOTO MASK INSPECTOR BASIC METABOLIC PANEL Early AM 05/31/2024 7:21 AM PHOTO MASK INSPECTOR GLUCOSE METER Timed 05/30/2024 5:15 PM PHOTO MASK INSPECTOR SCAN-CARDIAC STRIP 05/30/2024 4: 52 PM PHOTO MASK INSPECTOR GLUCOSE METER Timed 05/30/2024 1:04 PM PHOTO MASK INSPECTOR SCAN CORRESP-IMAGING 05/30/2024 12:50 PM PHOTO MASK INSPECTOR SCAN CORRESP-EKG RESULTS 05/30/2024 12:28 PM PHOTO MASK INSPECTOR HEMOGLOBIN Early AM 05/30/2024 8:42 AM PHOTO MASK INSPECTOR WHITE BLOOD COUNT Early AM 05/30/2024 8:4 2 AM PHOTO MASK INSPECTOR BASIC METABOLIC PANEL Early AM 05/30/2024 8:42 AM PHOTO MASK INSPECTOR GLUCOSE METER Timed 05/30/2024 8:09 AM PHOTO MASK INSPECTOR SCAN-CARDIAC STRIP 05/30/2024 7: 29 AM PHOTO MASK INSPECTOR GLUCOSE METER Timed 05/29/2024 8:40 PM PHOTO MASK INSPECTOR GLUCOSE METER Timed 05/29/2024 5:02 PM PHOTO MASK INSPECTOR GLUCOSE METER Timed 05/29/2024 11:58 AM PHOTO MASK INSPECTOR SCAN-CARDIAC STRIP 05/29/2024 8: 32 AM PHOTO MASK INSPECTOR GLUCOSE METER Timed 05/29/2024 7:50 AM PHOTO MASK INSPECTOR PRO-BNP SUZI 05/29/2024 5:14 AM PHOTO MASK INSPECTOR HEMOGLOBIN Early AM 05/29/2024 5:14 AM PHOTO MASK INSPECTOR WHITE BLOOD COUNT Early AM 05/29/2024 5:1 4 AM PHOTO MASK INSPECTOR BASIC METABOLIC PANEL Early AM 05/29/2024 5:14 AM PHOTO MASK INSPECTOR GLUCOSE METER Timed 05/28/2024 9:44 PM PHOTO MASK INSPECTOR GLUCOSE METER Timed 05/28/2024 6:12 PM PHOTO MASK INSPECTOR GLUCOSE METER Timed 05/28/2024 1:01 PM PHOTO MASK INSPECTOR SCAN-CARDIAC STRIP 05/28/2024 11 :31 AM PHOTO MASK INSPECTOR GLUCOSE METER Timed 05/28/2024 9:07 AM PHOTO MASK INSPECTOR ELECTROLYTE PANEL Early AM 05/28/2024 5:0 2 AM PHOTO MASK INSPECTOR CBC W PLT NO DIFF Early AM 05/28/2024 5:0 2 AM PHOTO MASK INSPECTOR GLUCOSE METER Timed 05/27/2024 4:42 PM PHOTO MASK INSPECTOR XR CHEST 1 VIEW PORTABLE STAT 05/27/2024 4:40 PM PHOTO MASK INSPECTOR GLUCOSE METER Timed 05/27/2024 12:17 PM PHOTO MASK INSPECTOR SCAN-CARDIAC STRIP 05/27/2024 11 :15 AM PHOTO MASK INSPECTOR GLUCOSE METER Timed 05/26/2024 9:40 PM PHOTO MASK INSPECTOR GLUCOSE METER Timed 05/26/2024 4:52 PM PHOTO MASK INSPECTOR GLUCOSE METER Timed 05/26/2024 11:24 AM PHOTO MASK INSPECTOR SCAN-CARDIAC STRIP 05/26/2024 10 :29 AM PHOTO MASK INSPECTOR GLUCOSE METER Timed 05/26/2024 8:57 AM PHOTO MASK INSPECTOR GLUCOSE METER Timed 05/25/2024 5:44 PM PHOTO MASK INSPECTOR SCAN-CARDIAC STRIP 05/25/2024 9: 28 AM PHOTO MASK INSPECTOR GLUCOSE METER Timed 05/25/2024 8:23 AM PHOTO MASK INSPECTOR TROPONIN T (HS) ONE TIME Timed 05/25/2024 7:26 AM PHOTO MASK INSPECTOR SCAN-CARDIAC STRIP 05/25/2024 5: 46 AM PHOTO MASK INSPECTOR PRO-BNP Today 05/25/2024 5:37 AM PHOTO MASK INSPECTOR TROPONIN T (HS) ACUTE W/2HR REFLEX STAT 05/25/2024 5:37 AM PHOTO MASK INSPECTOR PROCALCITONIN Today 05/25/2024 5:37 AM PHOTO MASK INSPECTOR BASIC METABOLIC PANEL Today 05/25/2024 5:37 AM PHOTO MASK INSPECTOR CBC W PLT NO DIFF Today 05/25/2024 5:2 3 AM PHOTO MASK INSPECTOR from Last 3 Months Results * US CAROTID DUPLEX BILATERAL (06/28/2024 3:35 PM PHOTO MASK INSPECTOR) Anatomical Region Laterality Modality CAROTID, NECK Ultrasound 06/28/2024 3:10 PM PHOTO MASK INSPECTOR Narrative 06/29/2024 8:31 AM PHOTO MASK INSPECTOR VASCULAR ULTRASOUND REPORT SHERYL SERRANO : 1940 Study Date: 06/28/2024 3:10:36 PM Age: 84 years Tech: JA Gender: M Referring MD: SNEHA DE LA CRUZ Site: [facility] Study performed: Carotid Indication for Study: Bilateral carotid artery stenosis Study Quality: Good TECHNIQUE: The extracranial carotid arteries, vertebral arteries and subclavian arteries were examined per exam protocol with duplex ultrasound, color-flow and spectral Doppler. Flow velocities including peak systolic (PSV), end diastolic (EDV), and velocity ratios if applicable were documented at sites per exam protocol. IMPRESSION: 1. Based on the ICA velocities, ICA/CCA ratio, and 2D images there is plaque causing >70% stenosis in the right internal carotid artery and there is plaque causing >70% stenosis in the left internal carotid artery. 2. Normal antegrade flow in the right vertebral artery and normal antegrade flow in the left vertebral artery. 3. Multiphasic flow in the right subclavian artery consistent with no flow limiting stenosis and monophasic flow in the left subclavian artery consistent with significant disease proximally. COMPARISON: No prior study available for comparison. FINDINGS: There appears to be greater than 70 percent stenosis in the bilateral ICA. The left subclavian artery appears to demonstrate monophasic flow. RIGHT FINDINGS: Antegrade flow in the right vertebral artery. Multiphasic flow in the right subclavian artery consistent with no flow limiting stenosis. LEFT FINDINGS: Antegrade flow in the left vertebral artery. Monophasic flow in the left subclavian artery consistent with significant disease proximally. MEASUREMENTS: +--------+--------+------+--------+--------+ RIGHT RIGHT LEFT LEFT +--------+--------+------+--------+--------+ PSV cm/s EDV cm/s Vessel PSV cm/s EDV cm/s +--------+--------+------+--------+--------+ 79 14 P. CCA 56 8 +--------+--------+------+--------+--------+ 73 14 D. CCA 63 10 +--------+--------+------+--------+--------+ 329 77 P. ICA 504 206 +--------+--------+------+--------+--------+ 134 18 M. ICA 209 64 +--------+--------+------+--------+--------+ 95 22 D. ICA 107 27 +--------+--------+------+--------+--------+ 163 14 ECA 307 17 +--------+--------+------+--------+--------+ +-----+ +----+ RIGHT LEFT +-----+ +----+ 138 Subclavian Artery (cm/s) 108 +-----+ +----+ 45 Vertebral Artery (cm/s) 42 +-----+ +----+ 4.5 ICA/CCA Ratio 8.1 +-----+ +----+ Gary Petersen MD. Electronically signed on 06/29/2024 8:31:27 AM This study was performed and interpreted by a service accredited by the Intersocietal Accreditation Commission (IAC/Vascular), www.intersocietal.org/vascular Report generated by [employer]. Final Procedure Note Gary Petersen MD - 06/29/2024 VASCULAR ULTRASOUND REPORT SHERYL SERRANO : 1940 Study Date: 06/28/2024 3:10:36 PM Age: 84 years Tech: JA Gender: M Referring MD: SNEHA DE LA CRUZ Site: [facility] Study performed: Carotid Indication for Study: Bilateral carotid artery stenosis Study Quality: Good TECHNIQUE: The extracranial carotid arteries, vertebral arteries and subclavianarteries were examined per exam protocol with duplex ultrasound,color-flow and spectral Doppler. Flow velocities including peak systolic(PSV), end diastolic (EDV), and velocity ratios if applicable weredocumented at sites per exam protocol. IMPRESSION: 1. Based on the ICA velocities, ICA/CCA ratio, and 2D images there isplaque causing >70% stenosis in the right internal carotid artery andthere is plaque causing >70% stenosis in the left internal carotidartery. 2. Normal antegrade flow in the right vertebral artery and normalantegrade flow in the left vertebral artery. 3. Multiphasic flow in the right subclavian artery consistent with noflow limiting stenosis and monophasic flow in the left subclavian arteryconsistent with significant disease proximally. COMPARISON: No prior study available for comparison. FINDINGS: There appears to be greater than 70 percent stenosis in the bilateralICA. The left subclavian artery appears to demonstrate monophasic flow. RIGHT FINDINGS: Antegrade flow in the right vertebral artery. Multiphasic flow in theright subclavian artery consistent with no flow limiting stenosis. LEFT FINDINGS: Antegrade flow in the left vertebral artery. Monophasic flow in the leftsubclavian artery consistent with significant disease proximally. MEASUREMENTS: +--------+--------+------+--------+--------+ RIGHT RIGHT LEFT LEFT +--------+--------+------+--------+--------+ PSV cm/s EDV cm/s Vessel PSV cm/s EDV cm/s +--------+--------+------+--------+--------+ 79 14 P. CCA 56 8 +--------+--------+------+--------+--------+ 73 14 D. CCA 63 10 +--------+--------+------+--------+--------+ 329 77 P. ICA 504 206 +--------+--------+------+--------+--------+ 134 18 M. ICA 209 64 +--------+--------+------+--------+--------+ 95 22 D. ICA 107 27 +--------+--------+------+--------+--------+ 163 14 ECA 307 17 +--------+--------+------+--------+--------+ +-----+ +----+ RIGHT LEFT +-----+ +----+ 138 Subclavian Artery (cm/s) 108 +-----+ +----+ 45 Vertebral Artery (cm/s) 42 +-----+ +----+ 4.5 ICA/CCA Ratio 8.1 +-----+ +----+ Gary Petersen MD. Electronically signed on 06/29/2024 8:31:27 AM This study was performed and interpreted by a service accredited by theIntersocietal Accreditation Commission (IAC/Vascular),www.[email or web address]/vascular Report generated by [employer]. Final us Sneha De La Cruz MD US Final R esult * (ABNORMAL) GLUCOSE METER (06/08/2024 8:11 AM PHOTO MASK INSPECTOR) Only the most recent of45 resultswithin the time period is included. GLUCOSE METER 150(H) 65 - 100 mg/dL 06/08/2024 8:20 AM [facility] Blood BLOOD SPECIMEN / Unknown 06/08/2024 8:11 AM PHOTO MASK INSPECTOR 06/08/2024 8:20 AM PHOTO MASK INSPECTOR us Phillip Hill DO CHEMISTRY Aleah l Result [facility] SENDOUT INTERNAL ZIP [id number] [place] [address] * SCAN-CARDIAC STRIP (06/08/2024 12:57 AM PHOTO MASK INSPECTOR) us Scanner OTHER Final Result * SCAN-CARDIAC STRIP (06/07/2024 4:16 PM PHOTO MASK INSPECTOR) us Scanner OTHER Final Result * PLATELET COUNT (06/07/2024 10:53 AM PHOTO MASK INSPECTOR) Only the most recent of2 resultswithin the time period is included. PLATELET COUNT 169 140 - 440 thou/cu mm 06/07/2024 11:07 AM PHOTO MASK INSPECTOR [facility] MPV 10.0 6.5 - 11.0 fL 06/07/2024 11:07 AM [facility] Blood BLOOD SPECIMEN / Unknown Non-Lab Venipuncture / Unknown 06/07/2024 10:53 AM PHOTO MASK INSPECTOR 06/07/2024 11:04 AM PHOTO MASK INSPECTOR us Sheyla Chaudhry MD HEMATOLOGY Final Re sult [facility] SENDOUT INTERNAL ZIP [phone] [place] [address] * (ABNORMAL) BASIC METABOLIC PANEL (06/07/2024 10:53 AM PHOTO MASK INSPECTOR) Only the most recent of9 resultswithin the time period is included. SODIUM 135(L) 136 - 145 mmol/L 06/07/2024 11:25 AM [facility] POTASSIUM 4.1 3.5 - 5.1 mmol/L 06/07/2024 11:25 AM [facility] CHLORIDE 96(L) 98 - 107 mmol/L 06/07/2024 11:25 AM [facility] CO2,TOTAL 28 22 - 29 mmol/L 06/07/2024 11:25 AM [facility] ANION GAP 11 5 - 18 06/07/2024 11:25 AM [facility] GLUCOSE 111(H) 70 - 99 mg/dL 06/07/2024 11:25 AM [facility] CALCIUM 8.8 8.8 - 10.4 mg/dL 06/07/2024 11:25 AM [facility] Comment: Reference ranges for this test were updated on 04/12/2024 to reflect our healthy population more accurately. Reference range changes are not retroactively applied to results, but previous results using the same methodology can be interpreted in the context of the new reference range. BUN 35(H) 8 - 23 mg/dL 06/07/2024 11:25 AM [facility] CREATININE 4.83(H) 0.70 - 1.20 mg/dL 06/07/2024 11:25 AM [facility] BUN/CREAT RATIO 7(L) 10 - 20 11:25 AM [facility] eGFR 11(L) >90 mL/min/1. 73m2 06/07/2024 11:25 AM [facility] Comment:As of 2021, eG FR is calculated by the CKD-EPI creatinine equation without race adjustment. eGFR can be influenced by muscle mass, exercise, and diet. The reported eGFR is an estimation only and is only applicable if the renal function is stable. Blood BLOOD SPECIMEN / Unknown Non-Lab Venipuncture / Unknown 06/07/2024 10:53 AM PHOTO MASK INSPECTOR 06/07/2024 11:04 AM [facility] us Phillip Pack DO CHEMISTRY Final Resul t [facility] SENDOUT [place] [phone] [place] [address] * SCAN-CARDIAC STRIP (06/07/2024 10:39 AM PHOTO MASK INSPECTOR) us Scanner OTHER Final Result * SCAN-CARDIAC STRIP (06/06/2024 4:02 PM PHOTO MASK INSPECTOR) us Scanner OTHER Final Result * SCAN-CARDIAC STRIP (06/05/2024 4:51 PM PHOTO MASK INSPECTOR) us Scanner OTHER Final Result * CT HEAD BRAIN WO (06/05/2024 4:00 PM PHOTO MASK INSPECTOR) Anatomical Region Laterality Modality HEAD, BRAIN Computed Tomogra phy 06/05/2024 4:00 PM PHOTO MASK INSPECTOR Impressions 06/05/2024 4:51 PM PHOTO MASK INSPECTOR 1. No CT evidence for acute intracranial process. 2. Brain atrophy and presumed chronic microvascular ischemic changes as above. Narrative 06/05/2024 4:51 PM PHOTO MASK INSPECTOR For Patients: As a result of the Cures Act, medical imaging exams and procedure reports are released immediately into your electronic medical record. You may view this report before your referring provider. If you have questions, please contact your health care provider. EXAM: CT HEAD BRAIN WO LOCATION: [facility] MEDICAL IMAGING DATE: 06/05/2024 INDICATION: Mental status change, unknown cause COMPARISON: 11/12/2023 TECHNIQUE: Routine CT Head without IV contrast. Multiplanar reformats. Dose reduction techniques were used. FINDINGS: INTRACRANIAL CONTENTS: No intracranial hemorrhage, extraaxial collection, or mass effect. No CT evidence of acute infarct. Mild to moderate presumed chronic small vessel ischemic changes. There is encephalomalacia of left parietal lobe. Mild to moderate generalized volume loss. No hydrocephalus. There is intracranial atherosclerosis. VISUALIZED ORBITS/SINUSES/MASTOIDS: Prior bilateral cataract surgery. Visualized portions of the orbits are otherwise unremarkable. No paranasal sinus mucosal disease. No middle ear or mastoid effusion. BONES/SOFT TISSUES: No acute abnormality. Procedure Note Rian Hernandez MD - 06/05/2024 For Patients: As a result of the Cures Act, medical imagingexams and procedure reports are released immediately into your electronicmedical record. You may view this report before your referring provider.If you have questions, please contact your health care provider. EXAM: CT HEAD BRAIN WO LOCATION: [facility] MEDICAL IMAGING DATE: 06/05/2024 INDICATION: Mental status change, unknown cause COMPARISON: 11/12/2023 TECHNIQUE: Routine CT Head without IV contrast. Multiplanar reformats.Dose reduction techniques were used. FINDINGS: INTRACRANIAL CONTENTS: No intracranial hemorrhage, extraaxial collection,or mass effect. No CT evidence of acute infarct. Mild to moderatepresumed chronic small vessel ischemic changes. There is encephalomalaciaof left parietal lobe. Mild to moderate generalized volume loss. Nohydrocephalus. There is intracranial atherosclerosis. VISUALIZED ORBITS/SINUSES/MASTOIDS: Prior bilateral cataract surgery.Visualized portions of the orbits are otherwise unremarkable. No paranasalsinus mucosal disease. No middle ear or mastoid effusion. BONES/SOFT TISSUES: No acute abnormality. IMPRESSION: 1. No CT evidence for acute intracranial process. 2. Brain atrophy and presumed chronic microvascular ischemic changes asabove. us Anca Ariella Montes De Oca MD CT Final R esult * SCAN-CARDIAC STRIP (06/05/2024 2:52 PM PHOTO MASK INSPECTOR) us Scanner OTHER Final Result * SCAN-CARDIAC STRIP (06/05/2024 2:52 PM PHOTO MASK INSPECTOR) us Scanner OTHER Final Result * XR Foot 3 Views Left Portable- Non-Weight Bearing (06/05/2024 8:56 AM PHOTO MASK INSPECTOR) Anatomical Region Laterality Modality FEET, FOOT L Computed Radiogr aphy 06/05/2024 8:56 AM PHOTO MASK INSPECTOR Impressions 06/05/2024 9:34 AM PHOTO MASK INSPECTOR Interval amputation right great toe at the level of the base of the proximal phalanx. No new bony erosive change to suggest osteomyelitis. 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 Osteopenia. No acute fracture. Arteriovascular calcifications. Narrative 06/05/2024 9:34 AM PHOTO MASK INSPECTOR For Patients: As a result of the Cures Act, medical imaging exams and procedure reports are released immediately into your electronic medical record. You may view this report before your referring provider. If you have questions, please contact your health care provider. EXAM: XR FOOT 3 VIEWS LEFT PORTABLE LOCATION: [facility] MEDICAL IMAGING DATE: 06/05/2024 INDICATION: Interval left foot surgery. Follow-up. Osteomyelitis. COMPARISON: 05/31/2024 Procedure Note Ezekiel Medina MD - 06/05/2024 For Patients: As a result of the Cures Act, medical imagingexams and procedure reports are released immediately into your electronicmedical record. You may view this report before your referring provider.If you have questions, please contact your health care provider. EXAM: XR FOOT 3 VIEWS LEFT PORTABLE LOCATION: [facility] MEDICAL [facility]AG[facility] DATE: 06/05/2024 INDICATION: Interval left foot surgery. Follow-up. Osteomyelitis. COMPARISON: 05/31/2024 IMPRESSION: Interval amputation right great toe at the level of the base of theproximal phalanx. 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 Osteopenia.No acute fracture. Arteriovascular calcifications. Phillip Hutton DPM GENERAL IMAGING Final Resul t * (ABNORMAL) TISSUE CULTURE, STAIN (AEROBIC) (06/05/2024 7:42 AM PHOTO MASK INSPECTOR) CULTURE RESULT(A) 06/08/2024 9:33 AM PHOTO MASK INSPECTOR [facility]-CE NTRAL LABORATORY CULTURE 1+ Staphylococcus aureus 06/08/2024 9:33 AM PHOTO MASK INSPECTOR [facility]-CE NTRCT LABORATORY GRAM STAIN 1+ PMNs 06/08/2024 9:33 AM PHOTO MASK INSPECTOR [facility] GRAM STAIN No Epithelial cells 06/08/2024 9:33 AM PHOTO MASK INSPECTOR [facility] GRAM STAIN 1+ RBCs 06/08/2024 9:33 AM PHOTO MASK INSPECTOR [facility] GRAM STAIN No organisms seen 025 9:33 AM PHOTO MASK INSPECTOR [facility] GRAM STAIN Gram stain performed by [place], [place] 06/08/2024 9:33 AM PHOTO MASK INSPECTOR [facility] Bone (Left Great Toe) Non-Blood / Unknown 06/05/2024 7:42 AM PHOTO MASK INSPECTOR 06/05/2024 8:36 AM PHOTO MASK INSPECTOR Narrative Organism Antibiotic Method Susceptibility Staphylococcus aureus OXACILLIN <=0.25: S Comment:Oxacillin wetzel sceptible should not be interpreted as penicillin or amoxicillin susceptible. Staphylococcus aureus CLINDAMYCIN 0.25: S Staphylococcus aureus DOXYCYCLINE <=0.5: S Staphylococcus aureus CEFAZOLIN S Staphylococcus aureus TRIMETHOPRIM/SULF <=0.5/9.5: S Phillip Hutton DPM MICROBIOLOGY Final Resul t Performing Organization Address [facility] Co de Phone Number [facility] [address] [place] [address], [facility] SENDOUT [address] [phone] [place] [address] * ANAEROBIC CULTURE (06/05/2024 7:42 AM PHOTO MASK INSPECTOR) Only the most recent of2 resultswithin the time period is included. CULTURE No anaerobes isolated 06/10/2024 10:[address] [facility] TRAL [facility]ORAT[facility] Bone (Left Great Toe) Non-Blood / Unknown 06/05/2024 7:42 AM PHOTO MASK INSPECTOR 06/05/2024 8:36 AM PHOTO MASK INSPECTOR Phillip Hutton DPM MICROBIOLOGY Final Resul t Performing Organization Address [facility] Co de Phone Number [facility] [address] [place] [address], * PATH TISSUE EXAM (06/05/2024 7:40 AM PHOTO MASK INSPECTOR) Case Report Pathology Report Case: [id number] Authorizing Provider: Phillip Hutton DPM Collected: 06/05/2024 0740 Ordering Location: [facility] Received: 06/06/2024 0741 Pathologist: Zohra Lou DO Specimen: Left Great Toe, LEFT GREAT HALLUX 06/09/2024 11:[address] [facility] ENTRAL LABORATORY Final Diagnosis A) FOOT, LEFT, GREAT TOE/HALLUX, AMPUTATION: 1. Focally acute and chronic osteomyelitis 2. Overlying gangrenous ulceration is present 3. Presumed proximal bone margin is negative for osteomyelitis (see comment) 4. Negative for malignancy 06/09/2024 11:27 AM PHOTO MASK INSPECTOR [facility]-C ENTRAL LABORATORY Comment The specimen in this case was submitted in multiple fragments, and the bone margin was not separately submitted or designated specifically. Gross examination reveals one bone fragment with a flattened surface which is presumed to be the true margin, and this fragment is negative for osteomyelitis. 06/09/2024 11:27 AM [facility] [employer] LABORATORY-C ENTRAL LABORATORY Clinical Information Mr. Serrano is a 84 y.o. who has a history of diabetes mellitus, chronic kidney disease, peripheral arterial disease and left lower extremity wounds with suspected osteomyelitis of the distal and proximal phalanx of the left great toe. The patient underwent partial hallux amputation of the left foot. 06/09/2024 11:27 AM [facility] [employer] [facility]-C ENTRAL LABORATORY Gross Description A) Received in formalin, labeled with the patient's name and left great hallux, are 4 pieces of tissues. The largest piece is a great toe with attached toenail, 4.0 x 3.0 x 3.0 cm. The other 2 pieces are flattened bone fragments averaging 2.5 x 2.0 x 0.8 cm each. The smallest piece is a fibrotic soft tissue, 2.5 x 2.0 x 2.0 cm. The specimen cannot be reapproximated. The great toe displays a 2.5 x 1.7 cm ulcer which is 0.2 cm to the skin margin. The bone underlying the ulcer is markedly softened. Due to the integrity of the specimen, the proximal phalanx is not true bony margin. The 2 pieces of flattened bone fragments are moderately softened with fatty bone marrow. One of the bone fragment has a flattened surface which is presumed true margin and is inked blue. The fibrotic soft tissue is dusky alatorre-yellow with tendons on cut surface. No lesion is identified. Change Number Operator sections are submitted: 1. Great toe: skin ulcer to nearest margin and bone underlying ulcer (decal) 2-3. Two pieces of flattened bone fragments: Presumed en face bony margin in 2 (decal) 4. Fibrotic soft tissue TTP 06/06/2024 06/09/2024 11:27 AM [facility] [facility] ENTRAL LABORATORY Microscopic Description The final diagnosis is based on microscopic examination of appropriate sections of all specimens. 06/09/2024 11:27 AM PHOTO MASK INSPECTOR [facility] Additional Information Interpreted at [facility], Central Laboratory - [address], [place] [address] 06/09/2024 11:27 AM PHOTO MASK INSPECTOR [facility]-C ENTRAL LABORATORY Tissue (Left Great Toe) 06/05/2024 7:40 AM PHOTO MASK INSPECTOR 06/06/2024 7:41 AM PHOTO MASK INSPECTOR us Phillip Hutton DPStefany PATHOLOGY/CYTOLOGY Final Re sult [facility]AL LABORATORY [address] [place] [address], [facility] SENDOUT INTERNAL ZIP [phone] [place] [phone] * SCAN-CARDIAC STRIP (06/04/2024 8:40 PM PHOTO MASK INSPECTOR) us Scanner OTHER Final Result * SCAN-CARDIAC STRIP (06/04/2024 8:40 PM PHOTO MASK INSPECTOR) us Scanner OTHER Final Result * SCAN-CARDIAC STRIP (06/04/2024 8:15 AM PHOTO MASK INSPECTOR) us Scanner OTHER Final Result * SCAN-CARDIAC STRIP (06/04/2024 2:25 AM PHOTO MASK INSPECTOR) us Scanner OTHER Final Result * (ABNORMAL) Hemoglobin - ROD MILL TENDER (06/03/2024 8:05 PM PHOTO MASK INSPECTOR) Only the most recent of6 resultswithin the time period is included. HEMOGLOBIN 8.0(L) 13.5 - 17.5 g/dL 06/03/2024 8:18 PM PHOTO MASK INSPECTOR [facility] MCV 93 80 - 100 fL 06/03/2024 8:18 PM PHOTO MASK INSPECTOR [facility] Blood BLOOD SPECIMEN / Unknown Line/Port / Unknown 06/03/2024 8:05 PM PHOTO MASK INSPECTOR 06/03/2024 8:12 PM PHOTO MASK INSPECTOR Narrative [facility] - 06/03/2024 8:18 PM PHOTO MASK INSPECTOR For chest pain, tachycardia, or hypotension present. Emily Montes De Oca MD HEMATOLOGY Final R esult [facility] SENDOUT INTERNAL ZIP [phone] [place] [phone] * (ABNORMAL) ACTIVATED CLOTTING TIME [id number] ACT (06/03/2024 3:09 PM PHOTO MASK INSPECTOR) Only the most recent of2 resultswithin the time period is included. Pathologist [facility] ACTIVATED CLOTTING TIME, POCT 211(H) 74 - 125 sec 06/03/2024 3:33 PM PHOTO MASK INSPECTOR [facility] Blood BLOOD SPECIMEN / Unknown 06/03/2024 3:09 PM PHOTO MASK INSPECTOR 06/03/2024 3:33 PM PHOTO MASK INSPECTOR Emiyl Montes De Oca MD HEMATOLOGY Final R esult Performing Organization Address City/[facility]/ZIP Co de Phone Number [facility] SENDOUT INTERNAL ZIP [phone] [place] [phone] * (ABNORMAL) CBC W PLT NO DIFF (06/03/2024 9:59 AM PHOTO MASK INSPECTOR) Only the most recent of3 resultswithin the time period is included. [facility] WHITE BLOOD COUNT 5.1 4.5 - 11.0 thou/cu mm 06/03/2024 10:14 AM [facility] RED BLOOD COUNT 2.39(L) 4.30 - 5.90 mil/cu mm 06/03/2024 10:14 AM [facility] HEMOGLOBIN 7.6(L) 13.5 - 17.5 g/dL 06/03/2024 10:14 AM [facility] HEMATOCRIT 22.1(L) 37.0 - 53.0 % 06/03/2024 10:14 AM [facility] MCV 93 80 - 100 fL 06/03/2024 10:14 AM [facility] MCH 31.8 26.0 - 34.0 pg 06/03/2024 10:14 AM [facility] MCHC 34.4 32.0 - 36.0 g/dL 06/03/2024 10:14 AM [facility] RDW 14.0 11.5 - 15.5 % 06/03/2024 10:14 AM PHOTO MASK INSPECTOR [facility] PLATELET COUNT 165 140 - 440 thou/cu mm 06/03/2024 10:14 AM PHOTO MASK INSPECTOR [facility] MPV 10.6 6.5 - 11.0 fL 06/03/2024 10:14 AM PHOTO MASK INSPECTOR [facility] NRBC 0.0 % 06/03/2024 10:14 AM PHOTO MASK INSPECTOR [facility] ABS NRBC 0.0 thou /cu mm 06/03/2024 10:14 AM PHOTO MASK INSPECTOR [facility] Blood BLOOD SPECIMEN / Unknown Butterfly / Unknown 06/03/2024 9:59 AM PHOTO MASK INSPECTOR 06/03/2024 10:06 AM PHOTO MASK INSPECTOR Elier ESTRELLA HEMATOLOGY Final Resu lt [facility] SENDOUT INTERNAL ZIP [phone] [place] [address] * SCAN-CARDIAC STRIP (06/03/2024 9:43 AM PHOTO MASK INSPECTOR) us Scanner OTHER Final Result * IR PICC LINE (06/02/2024 3:26 PM PHOTO MASK INSPECTOR) Anatomical Region Laterality Modality X-Ray Angiograph y, Other, Other 06/02/2024 3:26 PM PHOTO MASK INSPECTOR Impressions 06/02/2024 4:05 PM PHOTO MASK INSPECTOR Successful placement of PICC line. Narrative 06/02/2024 4:05 PM PHOTO MASK INSPECTOR For Patients: As a result of the Cures Act, medical imaging exams and procedure reports are released immediately into your electronic medical record. You may view this report before your referring provider. If you have questions, please contact your health care provider. [facility] LOCATION: [facility] MEDICAL IMAGING DATE: 06/02/2024 PROCEDURE: PERIPHERALLY INSERTED CENTRAL CATHETER (PICC) PLACEMENT INTERVENTIONAL RADIOLOGIST: Phillip Conti MD. INDICATION: Patient needs long-term IV antibiotics. Patient on hemodialysis using left upper extremity AV fistula. Right subclavian ICD/pacer. Air Kerma: 16 mGy FLUOROSCOPIC TIME: 1.4 minutes COMPLICATIONS: No immediate complications. STERILE BARRIER TECHNIQUE: Maximum sterile barrier technique was used. Cutaneous antisepsis was performed at the operative site with application of 2% chlorhexidine and large sterile drape. Prior to the procedure, the surgeon and patient care assistant performed hand hygiene and wore hat, mask, sterile gown, and sterile gloves during the entire procedure. PROCEDURE/TECHNIQUE: In attempt to preserve upper extremity peripheral veins, I did discuss a tunneled central venous catheter access with the patient. He was agreeable and consented to possible placement of a tunneled central venous catheter. Ultrasound revealed a patent and compressible right internal jugular vein. An ultrasound image was obtained and placed in the patient's permanent medical record. Using real-time ultrasound for needle placement, right internal jugular vein puncture was performed. A wire would not advance centrally consistent with venous occlusive disease. This access site was aborted. Hemostasis obtained with manual compression. Ultrasound revealed a patent and compressible right brachial vein, and an ultrasound image was obtained and placed in the patient's permanent medical record. The RIGHT upper arm was prepped and draped in usual sterile fashion followed by local anesthesia with 1% Xylocaine. Using real-time ultrasound guidance, the right brachial vein was accessed and a 5 Chinese, 38 cm, double-lumen power PICC Solo peripherally inserted central catheter was placed under fluoroscopic guidance with its tip near the caval atrial junction. FINDINGS: Ultrasound shows an anechoic and compressible right brachial and right internal jugular vein. The completion fluoroscopic images show the catheter tip to lie near the cavoatrial junction. Procedure Note Phillip Conti MD - 06/02/2024 For Patients: As a result of the 21st Century Cures Act, medical imagingexams and procedure reports are released immediately into your electronicmedical record. You may view this report before your referring provider.If you have questions, please contact your health care provider. [facility] LOCATION: [facility] MEDICAL IMAGING DATE: 06/02/2024 PROCEDURE: PERIPHERALLY INSERTED CENTRAL CATHETER (PICC) PLACEMENT INTERVENTIONAL RADIOLOGIST: Phillip Conti MD. INDICATION: Patient needs long-term IV antibiotics. Patient onhemodialysis using left upper extremity AV fistula. Right subclavianICD/pacer. Air Kerma: 16 mGy FLUOROSCOPIC TIME: 1.4 minutes COMPLICATIONS: No immediate complications. STERILE BARRIER TECHNIQUE: Maximum sterile barrier technique was used.Cutaneous antisepsis was performed at the operative site with applicationof 2% chlorhexidine and large sterile drape. Prior to the procedure, thesurgeon and patient care assistant performed hand hygiene and wore hat, mask, sterilegown, and sterile gloves during the entire procedure. PROCEDURE/TECHNIQUE: In attempt to preserve upper extremity peripheral veins, I did discuss atunneled central venous catheter access with the patient. He was agreeableand consented to possible placement of a tunneled central venous catheter.Ultrasound revealed a patent and compressible right internal jugular vein.An ultrasound image was obtained and placed in the patient's permanentmedical record. Using real-time ultrasound for needle placement, rightinternal jugular vein puncture was performed. A wire would not advancecentrally consistent with venous occlusive disease. This access site wasaborted. Hemostasis obtained with manual compression. Ultrasound revealeda patent and compressible right brachial vein, and an ultrasound image wasobtained and placed in the patient's permanent medical record. The RIGHTupper arm was prepped and draped in usual sterile fashion followed bylocal anesthesia with 1% Xylocaine. Using real-time ultrasound guidance,the right brachial vein was accessed and a 5 Chinese, 38 cm, double-lumenpower PICC Solo peripherally inserted central catheter was placed underfluoroscopic guidance with its tip near the caval atrial junction. FINDINGS: Ultrasound shows an anechoic and compressible right brachial and rightinternal jugular vein. The completion fluoroscopic images show the catheter tip to lie near thecavoatrial junction. IMPRESSION: Successful placement of PICC line. Patricia Lyman NP IR Final Resul t * MR FOOT LEFT WO (06/02/2024 11:30 AM PHOTO MASK INSPECTOR) Anatomical Region Laterality Modality FOOT L Magnetic Resonan ce, Other 06/02/2024 11:3 0 AM PHOTO MASK INSPECTOR Impressions 06/02/2024 11:56 AM PHOTO MASK INSPECTOR 1. Soft tissue ulceration at the dorsal aspect of the great toe IP joint with osteomyelitis involving the first distal phalangeal base and proximal phalangeal head-neck. 2. No abscess. 3. Tiny focus of susceptibility artifact in the subcutaneous tissues of the dorsal and lateral forefoot which correlates with a linear radiopaque density seen on comparison radiographs patients for small radiopaque foreign body. Narrative 06/02/2024 11:56 AM PHOTO MASK INSPECTOR For Patients: As a result of the Cures Act, medical imaging exams and procedure reports are released immediately into your electronic medical record. You may view this report before your referring provider. If you have questions, please contact your health care provider. EXAM: MR FOOT LEFT WO LOCATION: [facility] MEDICAL IMAGING DATE: 06/02/2024 INDICATION: Ulcer, question osteomyelitis hallux COMPARISON: Radiographs 05/31/2024 TECHNIQUE: Unenhanced. FINDINGS: Soft tissue ulceration at the dorsal aspect of the great toe at the level of the IP joint. Confluent T1 hypointense marrow signal at the first distal phalangeal base and proximal phalangeal head-neck with associated marrow edema consistent with osteomyelitis. No fluid collection or evidence of abscess. Nonspecific subcutaneous edema throughout the forefoot, greatest medially. Trace first IP joint effusion. Tiny focus of susceptibility artifact within the subcutaneous tissues at the dorsal aspect of the lateral forefoot at the level of the distal fifth metatarsal shaft (series 3 and 4, image 25; series 6 and 7, image 8). This likely correlates with the tiny linear radiopaque density seen on comparison radiographs. Marked fatty atrophy of the intrinsic foot musculature with hazy intramuscular edema consistent with diabetic myopathic/denervation change. Mild degenerative arthritis first through fifth MTP joints. Chronic posttraumatic deformity fifth metatarsal head-neck and probable chronic posttraumatic. Hammertoes. Procedure Note Yoana Paige MD - 06/02/2024 For Patients: As a result of the Cures Act, medical imagingexams and procedure reports are released immediately into your electronicmedical record. You may view this report before your referring provider.If you have questions, please contact your health care provider. EXAM: MR FOOT LEFT WO LOCATION: [facility] MEDICAL IMAGING DATE: 06/02/2024 INDICATION: Ulcer, question osteomyelitis hallux COMPARISON: Radiographs 05/31/2024 TECHNIQUE: Unenhanced. FINDINGS: Soft tissue ulceration at the dorsal aspect of the great toe at the levelof the IP joint. Confluent T1 hypointense marrow signal at the firstdistal phalangeal base and proximal phalangeal head-neck with associatedmarrow edema consistent with osteomyelitis. No fluid collection orevidence of abscess. Nonspecific subcutaneous edema throughout theforefoot, greatest medially. Trace first IP joint effusion. Tiny focus of susceptibility artifact within the subcutaneous tissues atthe dorsal aspect of the lateral forefoot at the level of the distal fifthmetatarsal shaft (series 3 and 4, image 25; series 6 and 7, image 8). Thislikely correlates with the tiny linear radiopaque density seen oncomparison radiographs. Marked fatty atrophy of the intrinsic foot musculature with hazyintramuscular edema consistent with diabetic myopathic/denervation change.Mild degenerative arthritis first through fifth MTP joints. Chronicposttraumatic deformity fifth metatarsal head-neck and probable chronicposttraumatic. Hammertoes. IMPRESSION: 1. Soft tissue ulceration at the dorsal aspect of the great toe IP jointwith osteomyelitis involving the first distal phalangeal base and proximalphalangeal head-neck. 2. No abscess. 3. Tiny focus of susceptibility artifact in the subcutaneous tissues ofthe dorsal and lateral forefoot which correlates with a linear radiopaquedensity seen on comparison radiographs patients for small radiopaqueforeign body. us Francisca Roman NP MR Final Result * SCAN-CARDIAC STRIP (06/02/2024 9:44 AM PHOTO MASK INSPECTOR) us Scanner OTHER Final Result * WHITE BLOOD COUNT (06/02/2024 6:15 AM PHOTO MASK INSPECTOR) Only the most recent of5 resultswithin the time period is included. WHITE BLOOD COUNT 5.2 4.5 - 11.0 thou/cu mm 06/02/2024 6:33 AM PHOTO MASK INSPECTOR [facility] NRBC 0.0 % 06/02/2024 6:33 AM PHOTO MASK INSPECTOR [facility] ABS NRBC 0.0 thou /cu mm 06/02/2024 6:33 AM PHOTO MASK INSPECTOR [facility] Blood BLOOD SPECIMEN / Unknown Non-Lab Venipuncture / Unknown 06/02/2024 6:15 AM PHOTO MASK INSPECTOR 06/02/2024 6:26 AM PHOTO MASK INSPECTOR us Luís Porter MD HEMATOLOGY Fi nal Result [facility] SENDOUT INTERNAL ZIP [phone] [place] [address] * US ARTERIAL LOWER EXTREMITY W RITA BILATERAL (06/01/2024 8:15 PM PHOTO MASK INSPECTOR) Anatomical Region Laterality Modality LEGS Ultrasound 06/01/2024 8:15 PM PHOTO MASK INSPECTOR Impressions 06/01/2024 8:45 PM PHOTO MASK INSPECTOR 1. RIGHT LOWER EXTREMITY: Non calculable RITA secondary to noncompressible arteries. Likely moderate stenosis at the level of the mid superficial femoral artery with focal increased velocities. There are somewhat blunted waveforms with decreased velocities below this level. 2. LEFT LOWER EXTREMITY: Non calculable RITA secondary to noncompressible arteries. Blunted, monophasic waveforms below the knee, although no distinct stenosis is visualized. Narrative 06/01/2024 8:45 PM PHOTO MASK INSPECTOR For Patients: As a result of the Cures Act, medical imaging exams and procedure reports are released immediately into your electronic medical record. You may view this report before your referring provider. If you have questions, please contact your health care provider. EXAM: 1. RESTING ANKLE-BRACHIAL INDICES (ABIs) 2. DUPLEX ARTERIAL ULTRASOUND OF THE LOWER EXTREMITIES BILATERALLY LOCATION: [facility] MEDICAL IMAGING DATE: 06/01/2024 INDICATION: Decreased extremity pulses COMPARISON: None. TECHNIQUE: Arterial duplex ultrasound of both lower extremities with velocities and waveforms was performed. RITA and waveforms of the bilateral lower extremities were also performed. FINDINGS: Moderate to severe multifocal calcified and noncalcified atherosclerosis throughout the bilateral lower extremities. Likely focal stenosis in the mid right femoral artery with increased velocities at this point. Minimal flow is seen in the anterior tibial and dorsalis pedis arteries on the right and the anterior tibial artery on the left. RITA: Noncompressible lower extremity arteries at the level of the ankle. RIGHT Brachial: 131 Ankle (PT): Noncompressible Ankle (DP): Noncompressible First digit: 61 Index: 0.47 LEFT Brachial: 42 Ankle (PT): Noncompressible Ankle (DP): Noncompressible First digit: 42 Index: 0.32 Resting ABIs are not calculable on the right. Resting ABIs are not calculable on the left. WAVEFORMS and VELOCITIES: There are multiphasic waveforms bilaterally to the level of the knee, although there are blunted, monophasic waveforms below the knee. Velocities described below. RIGHT LOWER EXTREMITY (cm/s): CNC LASER OPERATOR: 88, T PFA: 209, T SFA (proximal): 117, T SFA (mid): 262, B SFA (distal): 73, B Pop A Prox: 35, B Pop A Dist: 45, B CLINICAL SYSTEMS EDUCATOR Dist: 101, B SULTANA: No significant flow. DPA: No significant flow. (M=monophasic, B=biphasic, T=triphasic) LEFT LOWER EXTREMITY (cm/s): CNC LASER OPERATOR: 95, T PFA: 205, T SFA (proximal): 149, T SFA (mid): 111, T SFA (distal): 132, T Pop A Prox: 76, B Pop A Dist: 60, M CLINICAL SYSTEMS EDUCATOR Dist: 45, M SULTANA: No significant flow. DPA: 25, M (M=monophasic, B=biphasic, T=triphasic) Procedure Note Shawn Funk MD - 06/01/2024 For Patients: As a result of the Cures Act, medical imagingexams and procedure reports are released immediately into your electronicmedical record. You may view this report before your referring provider.If you have questions, please contact your health care provider. EXAM: 1. RESTING ANKLE-BRACHIAL INDICES (ABIs) 2. DUPLEX ARTERIAL ULTRASOUND OF THE LOWER EXTREMITIES BILATERALLY LOCATION: [facility] MEDICAL IMAGING DATE: 06/01/2024 INDICATION: Decreased extremity pulses COMPARISON: None. TECHNIQUE: Arterial duplex ultrasound of both lower extremities withvelocities and waveforms was performed. RITA and waveforms of the bilaterallower extremities were also performed. FINDINGS: Moderate to severe multifocal calcified and noncalcifiedatherosclerosis throughout the bilateral lower extremities. Likely focalstenosis in the mid right femoral artery with increased velocities at thispoint. Minimal flow is seen in the anterior tibial and dorsalis pedisarteries on the right and the anterior tibial artery on the left. RITA: Noncompressible lower extremity arteries at the level of the ankle. RIGHT Brachial: 131 Ankle (PT): Noncompressible Ankle (DP): Noncompressible First digit: 61 Index: 0.47 LEFT Brachial: 42 Ankle (PT): Noncompressible Ankle (DP): Noncompressible First digit: 42 Index: 0.32 Resting ABIs are not calculable on the right. Resting ABIs are not calculable on the left. WAVEFORMS and VELOCITIES: There are multiphasic waveforms bilaterally tothe level of the knee, although there are blunted, monophasic waveformsbelow the knee. Velocities described below. RIGHT LOWER EXTREMITY (cm/s): CNC LASER OPERATOR: 88, T PFA: 209, T SFA (proximal): 117, T SFA (mid): 262, B SFA (distal): 73, B Pop A Prox: 35, B Pop A Dist: 45, B CLINICAL SYSTEMS EDUCATOR Dist: 101, B SULTANA: No significant flow. DPA: No significant flow. (M=monophasic, B=biphasic, T=triphasic) LEFT LOWER EXTREMITY (cm/s): CNC LASER OPERATOR: 95, T PFA: 205, T SFA (proximal): 149, T SFA (mid): 111, T SFA (distal): 132, T Pop A Prox: 76, B Pop A Dist: 60, M CLINICAL SYSTEMS EDUCATOR Dist: 45, M SULTANA: No significant flow. DPA: 25, M (M=monophasic, B=biphasic, T=triphasic) IMPRESSION: 1. RIGHT LOWER EXTREMITY: Non calculable RITA secondary to noncompressiblearteries. Likely moderate stenosis at the level of the mid superficialfemoral artery with focal increased velocities. There are somewhat bluntedwaveforms with decreased velocities below this level. 2. LEFT LOWER EXTREMITY: Non calculable RITA secondary to noncompressiblearteries. Blunted, monophasic waveforms below the knee, although nodistinct stenosis is visualized. us Francisca Roman NP US Final Result * SCAN-CARDIAC STRIP (06/01/2024 7:51 AM PHOTO MASK INSPECTOR) us Scanner OTHER Final Result * VANCOMYCIN (06/01/2024 6:29 AM PHOTO MASK INSPECTOR) VANCOMYCIN 24.4 ug/mL 06/01/2024 7:26 AM [facility] Comment:No Reference Range D efined. DATE OF LAST DOSE,RANDOM Not Given 06/01/2024 7:26 AM PHOTO MASK INSPECTOR [facility] TIME OF LAST DOSE,RANDOM Not Given 06/01/2024 7:26 AM PHOTO MASK INSPECTOR [facility] Blood BLOOD SPECIMEN / Unknown Venipuncture / Unknown 06/01/2024 6:29 AM PHOTO MASK INSPECTOR 06/01/2024 6:58 AM PHOTO MASK INSPECTOR Anca Ariella Montes De Oca MD CHEMISTRY Final R esult [facility] SENDOUT INTERNAL ZIP [phone] [place] [address] * (ABNORMAL) AEROBIC BACTERIAL CULTURE, STAIN (05/31/2024 4:33 PM PHOTO MASK INSPECTOR) CULTURE RESULT(A) 06/03/2024 11:21 AM PHOTO MASK INSPECTOR [facility] LABORATORY CULTURE 3+ Staphylococcus aureus 06/03/2024 11:21 AM PHOTO MASK INSPECTOR [facility] CULTURE 3+ Achromobacter xylosoxidans 06/03/2024 11:21 AM PHOTO MASK INSPECTOR [facility] CULTURE 3+ Mixed brigette present 06/03/2024 11:21 AM PHOTO MASK INSPECTOR [facility] GRAM STAIN 1+ PMNs 06/03/2024 11:21 AM PHOTO MASK INSPECTOR [facility] GRAM STAIN No Epithelial cells 06/03/2024 11:21 AM PHOTO MASK INSPECTOR [facility] GRAM STAIN 1+ RBCs 06/03/2024 11:21 AM PHOTO MASK INSPECTOR [facility] GRAM STAIN 3+ Gram Positive Cocci 06/03/2024 11:21 AM PHOTO MASK INSPECTOR [facility] GRAM STAIN Gram stain performed by [place], [place] 06/03/2024 11:21 AM PHOTO MASK INSPECTOR [facility] Other (Other) Non-Blood / Unknown 05/31/2024 4:33 PM PHOTO MASK INSPECTOR 05/31/2024 4:42 PM PHOTO MASK INSPECTOR Narrative [facility] - 06/03/2024 11:21 AM PHOTO MASK INSPECTOR Mixed Brigette; No beta-Strep, Strep. pneumoniae, or Pseudomonas aeruginosa Organism Antibiotic Method Susceptibility Staphylococcus aureus OXACILLIN 0.5: S Comment:Oxacillin wetzel sceptible should not be interpreted as penicillin or amoxicillin susceptible. Staphylococcus aureus CLINDAMYCIN 0.25: S Staphylococcus aureus DOXYCYCLINE <=0.5: S Staphylococcus aureus CEFAZOLIN S Staphylococcus aureus TRIMETHOPRIM/SULF <=0.5/9.5: S Achromobacter xylosoxidans TRIMETHOPRIM/SULF <=1/19: S Achromobacter xylosoxidans LEVOFLOXACIN 4: I Achromobacter xylosoxidans PIPERACILLIN/TAZO <=4: S Achromobacter xylosoxidans MEROPENEM <=0.25: S Francisca Roman NP MICROBIOLOGY Final Result [facility] [address] [place] [address], [facility] SENDOUT INTERNAL ZIP [phone] [place] [phone] * XR FOOT 3 VIEWS LEFT (05/31/2024 1:53 PM PHOTO MASK INSPECTOR) Anatomical Region Laterality Modality FEET, FOOT L Computed Radiogr aphy 05/31/2024 1:53 PM PHOTO MASK INSPECTOR Impressions 05/31/2024 1:59 PM PHOTO MASK INSPECTOR Osteopenia. Marked calcified atherosclerosis. Neuropathic changes left midfoot. Findings have progressed since 2011. No evidence of osteomyelitis. Narrative 05/31/2024 1:59 PM PHOTO MASK INSPECTOR For Patients: As a result of the Cures Act, medical imaging exams and procedure reports are released immediately into your electronic medical record. You may view this report before your referring provider. If you have questions, please contact your health care provider. EXAM: XR FOOT 3 VIEWS LEFT LOCATION: [facility] DATE: 05/31/2024 INDICATION: Left foot ulcer COMPARISON: 04/28/2012 Procedure Note Eriberto Recio MD - 05/31/2024 For Patients: As a result of the Cures Act, medical imagingexams and procedure reports are released immediately into your electronicmedical record. You may view this report before your referring provider.If you have questions, please contact your health care provider. EXAM: XR FOOT 3 VIEWS LEFT LOCATION: [facility] DATE: 05/31/2024 INDICATION: Left foot ulcer COMPARISON: 04/28/2012 IMPRESSION: Osteopenia. Marked calcified atherosclerosis. Neuropathic changes leftmidfoot. Findings have progressed since 2011. No evidence ofosteomyelitis. Francisca Roman NP GENERAL IMAGING Final Result * ECHO TTE COMPLETE WO CONTRAST (05/31/2024 12:49 PM PHOTO MASK INSPECTOR) EJECTION FRACTION 40-45% PROSOLV Anatomical Region Laterality Modality Ultrasound 05/31/2024 12:0 6 PM PHOTO MASK INSPECTOR Narrative 05/31/2024 1:23 [place] [address] Main: [email or web address] Report SHERYL SERRANO ID: [id number] Age: 84 : 1940 Ordering Provider: EMILY MONTES DE OCA Exam Date: 05/31/2024 12:06 Gender: M Floor Framer: SHIVAM Height: 72 in BSA: 2.06 m BP: 131 / 56 Weight: 185 lbs BMI: 25.1 kg/m HR: 73 Location: Inpatient (Portable) Rhythm: Artificially Paced Procedure Components: 2D imaging, Color Doppler, Spectral Doppler Indications: Chronic ischemic heart disease, Other forms of acute ischemic heart disease Technical Quality: Fair Contrast: None Final Conclusion Previous Study: 10/29/23 1. Mild left ventricular chamber enlargement. Left ventricular end-diastolic dimension is 6.0 cm. Mildly decreased left ventricular systolic function. Calculated left ventricular ejection fraction (modified Johnson technique) is 43 %. There is basal to mid inferior and inferoseptal hypokinesis. 2. Mild right ventricular chamber enlargement. Mildly decreased right ventricular systolic function. Estimated right ventricular systolic pressure is 54 mmHg. 3. No significant valvular heart disease. 4. Dilated inferior vena cava with decreased inspiratory collapse. 5. Compared to prior study of 10/29/23, the following changes have occurred: there is now mild RV dilation and dysfunction. Estimated EF: 40-45% FINDINGS Left Ventricle Mild left ventricular chamber enlargement. Left ventricular end-diastolic dimension is 6.0 cm. Mildly decreased left ventricular systolic function. Calculated left ventricular ejection fraction (modified Johnson technique) is 43 %. There is basal to mid inferior and inferoseptal hypokinesis. Diastolic Function Findings consistent with increased left ventricular filling pressure. Right Ventricle Mild right ventricular chamber enlargement. Mildly decreased right ventricular systolic function. Estimated right ventricular systolic pressure is 54 mmHg. Left Atrium Severe left atrial enlargement. Left atrial volume index is 75 ml/m . Right Atrium Severe right atrial enlargement. Atrial Septum Atrial septum was not well visualized. Aortic Valve Aortic valve leaflets not well visualized. Aortic valve sclerosis without stenosis. No aortic valve regurgitation. Mitral Valve Mildly calcified mitral annulus. Mildly thickened mitral valve. No mitral valve stenosis. Mild mitral valve regurgitation. Tricuspid Valve Mildly thickened tricuspid valve. No tricuspid valve stenosis. Mild tricuspid valve regurgitation. Pulmonic Valve Pulmonary valve was not well visualized. Normal pulmonary valve systolic Doppler profile. Mild pulmonary valve regurgitation. Pericardium No pericardial effusion. Aorta Aortic sinus of Valsalva is normal in size (3.8 cm, ZScore = -0.31). Normal indexed ascending aorta dimension (3.7 cm, 1.8 cm/m ). Inferior Vena Cava Dilated inferior vena cava with decreased inspiratory collapse. Other Device lead(s) identified in the right atrium and right ventricle. MEASUREMENTS (Male / Female) Normal Values 2D MEASUREMENTS AND LV FUNCTION IVS Diastolic Thickness 0.8 cm < 1.1 cm / < 1.0 cm LV Diastolic Diameter PLAX 5.95 cm 4.2 - 5.9 / 3.9 - 5.3 cm LV Diastolic Diameter Index 2.89 cm/m LVPW Diastolic Thickness 0.75 cm < 1.1 cm / < 1.0 cm LV Systolic Diameter PLAX 5.8 cm LV Systolic Diameter Index 2.81 cm/m LVOT Diameter 2.6 cm LVOT Cardiac Output 8 l/min LVOT Cardiac Index 3.86 l/min m LVOT Stroke Volume 110 ml Stroke Volume Index 52.9 ml/m LV Ejection Fraction MOD BP 42.8 % >= 55 % LA Volume MOD BP 155 ml LA Volume Index MOD BP 75.2 ml/m 16 - 34 ml/m RV Diastolic Basal Diameter 4.75 cm LV Mass 176 g LV Mass Index 85.4 g/m Sinuses of Valsalva Diameter(d) 3.8 cm Ascending Aorta Diameter(s) 3.7 cm IVC Diameter Expiration 2.3 cm Ascending Aorta Index 1.8 cm/m M MODE TAPSE MM 1.45 cm DIASTOLOGY Mitral E Point Velocity 1.25 m/sec 0.70 - 1.02 m/sec LV E' Lateral Velocity 0.0827 m/sec Mitral E to LV E' Lateral Ratio 15.1 LV E' Septal Velocity 0.0511 m/sec Mitral E to LV E' Septal Ratio 24.5 AORTIC VALVE AV Peak Velocity 1.56 m/sec < 2.0 m/sec AV Peak Gradient 9.73 mmHg AV Mean Gradient 6 mmHg AV Velocity Time Integral 36.9 cm LVOT Peak Velocity 0.869 m/sec LVOT Velocity Time Integral 20.6 cm AV Area Cont Eq vti 2.97 cm AV Area Cont Eq pk 2.96 cm AV Dimensionless Index 0.56 MITRAL VALVE MV Peak Gradient 6.35 mmHg MV Mean Gradient 3 mmHg MV Velocity Time Integral 34.1 cm TRICUSPID VALVE AND ESTIMATED PRESSURES TR Peak Velocity 3.13 m/sec TR Peak Gradient 39.2 mmHg Right Atrial Pressure 15 mmHg Right Ventricular Systolic Press 54.2 mmHg HCM DATA LVOT HARPREET (r) 3.02 mmHg Aortic Root ZScore: -0.31 Leidy Stephenson MD (Electronically Signed) Critical access hospital Site Final Date: 31 May 2024 13:23 ICD-10 Codes: I24.8 Procedure Note Leidy Stephenson MD - 05/31/2024 [place] [address] Main: [email or web address] SHERYL SERRANO Makayla ID: [id number] Age: 84 : 1940 Ordering Provider:EMILY MONTES DE OCA Exam Date: 05/31/2024 12:06 Gender: M Floor Framer: SHIVAM Height: 72 in BSA: 2.06 m BP: 131 / 56 Weight: 185 lbs BMI: 25.1 kg/m HR: 73 Location: Inpatient (Portable) Rhythm: Artificially Paced Procedure Components: 2D imaging, Color Doppler, Spectral Doppler Indications: Chronic ischemic heart disease, Other forms of acuteischemic heart disease Technical Quality: Fair Contrast: None Final Conclusion Previous Study: 10/29/23 1. Mild left ventricular chamber enlargement. Left ventricularend-diastolic dimension is 6.0 cm. Mildly decreased left ventricular systolic function. Calculated left ventricular ejection fraction(modified Johnson technique) is 43 %. There is basal to mid inferior and inferoseptal hypokinesis. 2. Mild right ventricular chamber enlargement. Mildly decreased rightventricular systolic function. Estimated right ventricular systolic pressure is 54 mmHg. 3. No significant valvular heart disease. 4. Dilated inferior vena cava with decreased inspiratory collapse. 5. Compared to prior study of 10/29/23, the following changes haveoccurred: there is now mild RV dilation and dysfunction. Estimated EF: 40-45% FINDINGS Left Ventricle Mild left ventricular chamber enlargement. Leftventricular end-diastolic dimension is 6.0 cm. Mildly decreased left ventricular systolic function. Calculated left ventricular ejectionfraction (modified Johnson technique) is 43 %. There is basal to mid inferior and inferoseptal hypokinesis. Diastolic Function Findings consistent with increased left ventricularfilling pressure. Right Ventricle Mild right ventricular chamber enlargement. Mildlydecreased right ventricular systolic function. Estimated right ventricular systolic pressure is 54 mmHg. Left Atrium Severe left atrial enlargement. Left atrial volume index is75 ml/m . Right Atrium Severe right atrial enlargement. Atrial Septum Atrial septum was not well visualized. Aortic Valve Aortic valve leaflets not well visualized. Aortic valvesclerosis without stenosis. No aortic valve regurgitation. Mitral Valve Mildly calcified mitral annulus. Mildly thickened mitralvalve. No mitral valve stenosis. Mild mitral valve regurgitation. Tricuspid Valve Mildly thickened tricuspid valve. No tricuspid valvestenosis. Mild tricuspid valve regurgitation. Pulmonic Valve Pulmonary valve was not well visualized. Normal pulmonaryvalve systolic Doppler profile. Mild pulmonary valve regurgitation. Pericardium No pericardial effusion. Aorta Aortic sinus of Valsalva is normal in size (3.8 cm, ZScore =-0.31). Normal indexed ascending aorta dimension (3.7 cm, 1.8 cm/m ). Inferior Vena Cava Dilated inferior vena cava with decreased inspiratorycollapse. Other Device lead(s) identified in the right atrium and rightventricle. MEASUREMENTS (Male / Female) Normal Values 2D MEASUREMENTS AND LV FUNCTION IVS Diastolic Thickness 0.8 cm < 1.1 cm / < 1.0cm LV Diastolic Diameter PLAX 5.95 cm 4.2 - 5.9 / 3.9 -5.3 cm LV Diastolic Diameter Index 2.89 cm/m LVPW Diastolic Thickness 0.75 cm < 1.1 cm / < 1.0cm LV Systolic Diameter PLAX 5.8 cm LV Systolic Diameter Index 2.81 cm/m LVOT Diameter 2.6 cm LVOT Cardiac Output 8 l/min LVOT Cardiac Index 3.86 l/min m LVOT Stroke Volume 110 ml Stroke Volume Index 52.9 ml/m LV Ejection Fraction MOD BP 42.8 % >= 55 % LA Volume MOD BP 155 ml LA Volume Index MOD BP 75.2 ml/m 16 - 34 ml/m RV Diastolic Basal Diameter 4.75 cm LV Mass 176 g LV Mass Index 85.4 g/m Sinuses of Valsalva Diameter(d) 3.8 cm Ascending Aorta Diameter(s) 3.7 cm IVC Diameter Expiration 2.3 cm Ascending Aorta Index 1.8 cm/m M MODE TAPSE MM 1.45 cm DIASTOLOGY Mitral E Point Velocity 1.25 m/sec 0.70 - 1.02m/sec LV E' Lateral Velocity 0.0827 m/sec Mitral E to LV E' Lateral Ratio 15.1 LV E' Septal Velocity 0.0511 m/sec Mitral E to LV E' Septal Ratio 24.5 AORTIC VALVE AV Peak Velocity 1.56 m/sec < 2.0 m/sec AV Peak Gradient 9.73 mmHg AV Mean Gradient 6 mmHg AV Velocity Time Integral 36.9 cm LVOT Peak Velocity 0.869 m/sec LVOT Velocity Time Integral 20.6 cm AV Area Cont Eq vti 2.97 cm AV Area Cont Eq pk 2.96 cm AV Dimensionless Index 0.56 MITRAL VALVE MV Peak Gradient 6.35 mmHg MV Mean Gradient 3 mmHg MV Velocity Time Integral 34.1 cm TRICUSPID VALVE AND ESTIMATED PRESSURES TR Peak Velocity 3.13 m/sec TR Peak Gradient 39.2 mmHg Right Atrial Pressure 15 mmHg Right Ventricular Systolic Press 54.2 mmHg HCM DATA LVOT HARPREET (r) 3.02 mmHg Aortic Root ZScore: -0.31 Leidy Stephenson MD (Electronically Signed) [facility] Accredited Site Final Date: 31 May 2024 13:23 ICD-10 Codes: I24.8 us Anca Ariella Montes De Oca MD ECHO ORD Final R esult * SCAN-CARDIAC STRIP (05/31/2024 7:47 AM PHOTO MASK INSPECTOR) us Scanner OTHER Final Result * HEMOGLOBIN A1C (05/31/2024 7:21 AM PHOTO MASK INSPECTOR) HEMOGLOBIN A1C SCREENING 4.9 <=6.4 % 05/31/2024 1:53 PM PHOTO MASK INSPECTOR [facility] Blood BLOOD SPECIMEN / Unknown Butterfly / Unknown 05/31/2024 7:21 AM PHOTO MASK INSPECTOR 05/31/2024 7:44 AM PHOTO MASK INSPECTOR Narrative [facility] - 05/31/2024 1:53 PM PHOTO MASK INSPECTOR (<5.7%) Normal (5.7% to 6.4%) Indicates prediabetes (>=6.5%) Confirms diabetes Falsely low levels may be seen with: Recent Transfusion, Recent Significant Blood Loss, Hemolytic Diseases, or Falsely elevated levels may be seen with: Untreated Anemias, Splenectomy us Francisca Roman NP CHEMISTRY Final Result Performing Organization Address [facility]/ZIP Co de Phone Number [facility] SENDOUT INTERNAL ZIP [address] [place] [id number] * MAGNESIUM (05/31/2024 7:21 AM PHOTO MASK INSPECTOR) MAGNESIUM 2.0 1.6 - 2.4 mg/dL 05/31/2024 10:05 AM PHOTO MASK INSPECTOR [facility] Blood BLOOD SPECIMEN / Unknown Butterfly / Unknown 05/31/2024 7:21 AM PHOTO MASK INSPECTOR 05/31/2024 7:44 AM PHOTO MASK INSPECTOR us Emily Montes De Oca MD CHEMISTRY Final R esult Performing Organization Address City/[facility]/ZIP Co de Phone Number [facility] SENDOUT INTERNAL ZIP [id number] [place] [id number] * SCAN-CARDIAC STRIP (05/30/2024 4:52 PM PHOTO MASK INSPECTOR) us Scanner OTHER Final Result * SCAN CORRESP-IMAGING (05/30/2024 12:50 PM PHOTO MASK INSPECTOR) Anatomical Region Laterality Modality Other Narrative 05/30/2024 12:50 PM PHOTO MASK INSPECTOR Ordered by an unspecified provider. us Other Clinical Staff OTHER Final Resul t * SCAN CORRESP-EKG RESULTS (05/30/2024 12:28 PM PHOTO MASK INSPECTOR) Narrative 05/30/2024 12:28 PM PHOTO MASK INSPECTOR Ordered by an unspecified provider. us Other Clinical Staff OTHER Final Resul t * SCAN-CARDIAC STRIP (05/30/2024 7:29 AM PHOTO MASK INSPECTOR) us Scanner OTHER Final Result * SCAN-CARDIAC STRIP (05/29/2024 8:32 AM PHOTO MASK INSPECTOR) us Scanner OTHER Final Result * (ABNORMAL) PRO-BNP (05/29/2024 5:14 AM PHOTO MASK INSPECTOR) Only the most recent of2 resultswithin the time period is included. PRO-BNP >70,000(H) <450 pg/mL 05/29/2024 12:54 PM PHOTO MASK INSPECTOR [facility] Blood BLOOD SPECIMEN / Unknown Butterfly / Unknown 05/29/2024 5:14 AM PHOTO MASK INSPECTOR 05/29/2024 5:25 AM PHOTO MASK INSPECTOR Narrative [facility] - 05/29/2024 12:54 PM PHOTO MASK INSPECTOR The following cut-points have been suggested for the use of proBNP for the diagnostic evaluation of heart failure (HF) in patient with acute dyspnea. Patients with eGFR >= 60 Diagnosis (rule in CHF) <50 Years Old 450 pg/mL 50 - 75 Years Old 900 pg/mL >75 Years Old 1800 pg/mL Exclusion (rule out CHF) Age Independent 300 pg/mL A cutoff of 1200 pg/mL for patients with an eGFR <60 yields a diagnostic sensitivity of 89% and specificity of 72% for acute congestive heart failure. us Luís Porter MD SEND OUTS Fi nal Result [facility] SENDOUT INTERNAL ZIP [id number] [address] [place] [address] * SCAN-CARDIAC STRIP (05/28/2024 11:31 AM PHOTO MASK INSPECTOR) us Scanner OTHER Final Result * (ABNORMAL) ELECTROLYTE PANEL (05/28/2024 5:02 AM PHOTO MASK INSPECTOR) SODIUM 135(L) 136 - 145 mmol/L 05/28/2024 6:15 AM PHOTO MASK INSPECTOR [facility] POTASSIUM 4.0 3.5 - 5.1 mmol/L 05/28/2024 6:15 AM [facility] CHLORIDE 97(L) 98 - 107 mmol/L 05/28/2024 6:15 AM [facility] CO2,TOTAL 29 22 - 29 mmol/L 05/28/2024 6:15 AM PHOTO MASK INSPECTOR [facility] ANION GAP 9 5 - 18 05/28/2024 6:15 AM [facility] Blood BLOOD SPECIMEN / Unknown Venipuncture / Unknown 05/28/2024 5:02 AM PHOTO MASK INSPECTOR 05/28/2024 5:30 AM PHOTO MASK INSPECTOR Ezekiel Soto DO CHEMISTRY Aleah l Result [facility] SENDOUT INTERNAL ZIP [id number] [place] [id number] * XR CHEST 1 VIEW PORTABLE (05/27/2024 4:40 PM PHOTO MASK INSPECTOR) Anatomical Region Laterality Modality HEART, THORAX, CHEST Computed Ra diography 05/27/2024 4:40 PM PHOTO MASK INSPECTOR Impressions 05/27/2024 4:55 PM PHOTO MASK INSPECTOR Sternotomy. Right pacemaker. Small left effusion with atelectasis. No right effusion. Bilateral calcified granulomas. Right lung clear. Calcified mediastinal and bilateral hilar lymph nodes. Narrative 05/27/2024 4:55 PM PHOTO MASK INSPECTOR For Patients: As a result of the Century Cures Act, medical imaging exams and procedure reports are released immediately into your electronic medical record. You may view this report before your referring provider. If you have questions, please contact your health care provider. EXAM: XR CHEST 1 VIEW PORTABLE LOCATION: [facility] MEDICAL IMAGING DATE: 05/27/2024 INDICATION: SOB Other re-assess pleural effusion COMPARISON: 02/26/23 xray, 11/18/19 xray Procedure Note Teto Cramer MD - 05/27/2024 For Patients: As a result of the Century Cures Act, medical imagingexams and procedure reports are released immediately into your electronicmedical record. You may view this report before your referring provider.If you have questions, please contact your health care provider. EXAM: XR CHEST 1 VIEW PORTABLE LOCATION: [facility] MEDICAL IMAGING DATE: 05/27/2024 INDICATION: SOB Other re-assess pleural effusion COMPARISON: 02/26/23 xray, 11/18/19 xray IMPRESSION: Sternotomy. Right pacemaker. Small left effusion with atelectasis. Noright effusion. Bilateral calcified granulomas. Right lung clear.Calcified mediastinal and bilateral hilar lymph nodes. us Ezekiel Shahid Magisrael DO GENERAL IMAGING Aleah l Result * SCAN-CARDIAC STRIP (05/27/2024 11:15 AM PHOTO MASK INSPECTOR) us Scanner OTHER Final Result * SCAN-CARDIAC STRIP (05/26/2024 10:29 AM PHOTO MASK INSPECTOR) us Scanner OTHER Final Result * SCAN-CARDIAC STRIP (05/25/2024 9:28 AM PHOTO MASK INSPECTOR) us Scanner OTHER Final Result * (ABNORMAL) TROPONIN T (HS) ONE TIME (05/25/2024 7:26 AM PHOTO MASK INSPECTOR) TROPONIN T HS 248(H) 6-15 ng/L ng/L 05/25/2024 8:23 AM PHOTO MASK INSPECTOR [facility] Blood BLOOD SPECIMEN / Unknown Venipuncture / Unknown 05/25/2024 7:26 AM PHOTO MASK INSPECTOR 05/25/2024 8:01 AM PHOTO MASK INSPECTOR us Sheyla Chaudhry MD CHEMISTRY Final Re sult [facility] SENDOUT INTERNAL ZIP [phone] [place] [address] * SCAN-CARDIAC STRIP (05/25/2024 5:46 AM PHOTO MASK INSPECTOR) us Scanner OTHER Final Result * (ABNORMAL) TROPONIN T (HS) ACUTE W/2HR REFLEX (05/25/2024 5:37 AM PHOTO MASK INSPECTOR) TROPONIN T HS 256(H) 6-15 ng/L ng/L 05/25/2024 6:17 AM PHOTO MASK INSPECTOR [facility] Blood BLOOD SPECIMEN / Unknown Venipuncture / Unknown 05/25/2024 5:37 AM PHOTO MASK INSPECTOR 05/25/2024 5:38 AM PHOTO MASK INSPECTOR Narrative [facility] - 05/25/2024 6:17 AM PHOTO MASK INSPECTOR hs-cTnT (Elecsys Troponin T Gen 5) concentration (s) above the sex-specific 99th percentile (16 ng/L or greater for males or 11 ng/L or greater for females) are indicative of myocardial injury. If initial hs-cTnT <=100 ng/L at presentation, a 0h/2h ABSOLUTE (ng/L) delta change (rising or falling) of >=10 ng/L suggests a significant change, whereas a 0h/2h delta change <=3 ng/L suggests no significant change. If initial hs-cTnT >100 ng/L at presentation, a 0h/2h/ RELATIVE (percent, %) delta change of 20% is suggested to distinguish patients with acute vs. chronic myocardial injury. There are multiple etiologies that can cause hs-cTnT increases above the 99th percentile (myocardial injury) other than acute myocardial infarction. Clinical context and careful clinical evaluation are critical for diagnosis and risk-stratification. The diagnosis of acute myocardial infarction requires a rising and/or falling pattern in hs-cTnT concentrations with at least one value above the sex-specific 99th percentile PLUS at least one of the following clinical criteria: ischemic symptoms, new or presumed new significant ST-T wave changes or new LBBB, development of pathological Q waves, imaging evidence of new loss of viable myocardium or new regional wall motion abnormality, or identification of intracoronary atherothrombosis or an acute angiographic culprit on coronary angiography. In appropriate low-risk patients with a non-ischemic electrocardiogram without active chest pain with a symptom onset >3-hours without recurrence, a single initial hs-cTnT<6 ng/L identifies patient with a very low risk in emergency department patient population. us Sheyla Chaudhry MD CHEMISTRY Final Re sult [facility] SENDOUT INTERNAL ZIP [phone] [place] [address] * PROCALCITONIN (05/25/2024 5:37 AM PHOTO MASK INSPECTOR) PROCALCITONIN 0.47 ng/ml 05/25/2024 6:18 AM PHOTO MASK INSPECTOR [facility] Blood BLOOD SPECIMEN / Unknown Venipuncture / Unknown 05/25/2024 5:37 AM PHOTO MASK INSPECTOR 05/25/2024 5:38 AM PHOTO MASK INSPECTOR Narrative [facility] - 05/25/2024 6:18 AM PHOTO MASK INSPECTOR Procalcitonin for initial assessment of Lower Respiratory Tract Infection: Results Interpretation <0.10 ng/mL Antibiotic therapy strongly discoraged. Indicates absent of bacterial infection. * 0.10 - 0.25 ng/mL Antibiotic therapy discouraged. Bacterial infection unlikely. * 0.26 - 0.50 ng/mL Antibiotic therapy encouraged. Bacterial infection possible. >0.50 ng/mL Antibiotic therapy strongly encouraged. Suggestive of presence of bacterial infection. *Antibiotic therapy should be considered regardless of PCT result if the patient is clinically unstable, is at high risk for adverse outcome, has strong evidence of bacterial pathogen, or the clinical context indicates antibiotic therapy is warranted. If antibiotics are withheld, reassess if symptoms persist/worsen and/or repeat PCT measurement within 6-24 hours. In order to assess treatment success and to support a decision to discontinue antibiotic therapy, follow up samples should be tested once every 1-2 days, based upon physician discretion taking into account patient's evolution and progress. Procalcitonin for initial assessment of severe sepsis risk: Results Interpretation <0.5 ng/ml A PCT level below 0.5 ng/ml on the first day of ICU admission is associated with a low risk for progression to severe sepsis and/or septic shock. > 2.0 ng/mL A PCT level above 2.0 ng/mL on the first day of ICU admission is associated with a high risk for progression to severe sepsis and/or septic shock. Note: Concentrations < 0.5 ng/mL do not exclude an infection, on account of localized infections (without systemic signs) which can be associated with such low concentrations, or a systemic infection in its initial stages(< 6 hours). Furthermore, increased procalcitonin can occur without infection. PCT concentrations between 0.5 and 2.0 ng/mL should be interpreted taking into account the patient's history. It is recommended to retest PCT within 6-24 hours if any concentrations < 2 ng/mL are obtained. 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 06/05/2019 Healthcare Directive 06/05/2019 019 Power of Lapel Padder Blindstitch 07/19/2006 * Full Code (Latest Code Status on File) Date Activated Date Inactivated Comments 05/25/2024 5:18 AM 06/08/2024 5:06 PM Question Answer Comments Code Status Discussion: Reviewed Preferences * Full Code Date Activated Date Inactivated Comments 12/28/2022 3:30 [...] Comments 10/29/2018 11:52 AM 11/02/2018 9:20 PM Care Teams Assurance Services Manager Health Care Relationship Specialty Start Date End Date Anna Marie Oglesby DO [place] [id number] PCP - General Family Practice 10/06/22 [address] [place] [id number] 01/02/23 [facility] [address] [place] [address] 06/08/24
--- OUTSIDE RECORDS SUMMARY | 2024-07-01 17:04 | XMS_ITS | Encounter Summary ---
Author Name [facility] [place] Address [address] [place] [address] Care Team Providers Care Stock Room Manager Name Role Phone RODRÍGUEZ MATHEWS Primary [...] Blanchard's Name Patient's Relationship to Policy Blanchard [facility] (WNR) MEDICARE ADVANTAGE [facility] (WNR) Jun 08, 2023 [id number] SHERYL SERRANO PATIENT MEDICARE (WNR) MEDICARE (M) RR PART A Feb 06, 2003 RR PART A [id number] SHERYL SERRANO PATIENT MEDICARE (WNR) MEDICARE (M) RR PART B Feb 06, 2003 RR PART B [id number] SHERYL SERRANO PATIENT MEDICARE PART D (WNR) MEDICARE (M) PART D Jun 08, 2022 PART D [id number] SHERYL SERRANO PATIENT [employer] MEDICARE SECONDARY (NO B EXC) UPREH S Jun 08, 2009 [id number] SHERYL SERRANO PATIENT Selected Encounter This section [...] PM AMBULATORY - REHAB MEDICIN E [facility] Social History: Smoking Status (Most [...] 2023 01:30 PM VA-TOBACCO FORMER USER [facility] Tobacco Use History This section includes a history of the smoking, or tobacco-related health factors, that were collected on or before the date of the Encounter. The data comes from the [place] facility where the Encounter took place. Date/Time Smoking Status/Tobacco Use Comment F acility Dec 31, 2023 01:30 PM VA-TOBACCO QUIT [address] [facility] Dec 18, 2022 01:00 PM VA-TOBACCO FORMER USER [facility] Dec 18, 2022 01:00 PM VA-TOBACCO QUIT [address] [facility] November 05, 2021 10:00 AM VA-TOBACCO FORMER USER [facility] November 05, 2021 10:00 AM VA-TOBACCO QUIT [address] [facility] Dec 10, 2018 12:57 PM VA-TOBACCO FORMER USER [facility] Dec 10, 2018 12:57 PM VA-TOBACCO QUIT [address] [facility] Feb 25, 2018 12:23 PM VA-TOBACCO FORMER USER [facility] Feb 25, 2018 12:23 PM VA-TOBACCO QUIT [address] [facility] Apr 10, 2015 02:55 PM FORMER TOBACCO USER 7Y OR GREATE R [facility] Apr 27, 2014 10:17 AM FORMER TOBACCO USER 7Y OR GRE[address] R [facility] Jun 18, 2006 07:23 AM FORMER TOBACCO USER 7Y OR [facility] [facility] Advance Directives: [...] May 23, 2003 ADVANCE DIRECTIVE [facility] Encounter Notes: All associated encounter notes This section contains the clinical notes associated to the Encounter. Date/Time Encounter Note(s) Provider Source Jun 06, 2024 06:51 PM PHARMACY NOTE: LOCAL TITLE: PHARMACY NON [facility] MEDICATIONS STANDARD TITLE: PHARMACY NOTE DATE OF NOTE: JUN 06, 2024@18:51 ENTRY DATE: JUN 06, 2024@18:51:51 AUTHOR: SCOOBY GONZALEZ EXP COSIGNER: URGENCY: STATUS: COMPLETED [facility] received the following electronic prescription(s): 1. [id number] clopidogreL 75 mg tablet eRx Qty: 90 eRx # of Refills: 3 eRx Days Supply: SIG: Take 1 Tablet (75 mg) by mouth once daily. Re order from 03/25/24 Date received: 06/06/24 Ordering Provider: LEILA PERKINS The outside (NON-VA) provider is not authorized to write for prescription(s) through community care at this [place] pharmacy at this time. Prescription request FORWARDED via FAX to Chirag Webster /katey/ SCOOBY GONZALEZ PharmD Signed: 06/06/2024 18:[address] [facility]
--- OUTSIDE RECORDS SUMMARY | 2024-07-01 17:04 | XMS_ITS | Clinical Summary ---
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 02/16/2024 Biventricular cardiac pacemaker present 02/16/20 Chronic atrial fibrillation 02/16/2024 Chronic systolic heart failure 02/16/2024 Coronary arteriosclerosis 02/16/2024 Dependence on renal dialysis 02/16/2024 Emphysema 02/16/2024 Roni hematuria 02/16/2024 History of diabetic foot ulcer 02/16/2024 Hyperparathyroidism due to renal insufficiency 0 02/16/2024 Ischemic congestive cardiomyopathy 02/16/2024 Neuropathy due to diabetes mellitus 02/16/2024 Renal disorder due to type 2 diabetes mellitus 0 02/16/2024 Type 2 diabetes mellitus 02/16/2024 End stage renal disease 02/16/2024 Encounters Date Type Department Care Team Description 06/29/2024 Orders Only [facility] [place] [address] [place] [phone] Darren Youssef MD 06/22/2024 Orders Only [facility] [place] [address] [place] [phone] Darren Youssef MD 06/20/2024 Orders Only [facility] [place] [address] [place] [phone] Darren Youssef MD 06/20/2024 Treatment [facility] [place] [address] [place] [phone] Darren Youssef MD 06/20/2024 TCM in Dialysis Clinic [facility] [address] [place] [address] Darren Youssef MD 06/15/2024 Orders Only [facility] [address] [place] [phone] Darren Youssef MD 06/10/2024 Orders Only [facility] [address] [place] [phone] Darren Youssef MD 06/09/2024 Telephone [facility] [address] [place] [phone] Nehal Meredith, FRANCIA Hospital Discharge ([place]) 05/18/2024 Orders Only [facility] [address] [place] [phone] Darren Youssef MD 05/11/2024 Orders Only [facility] [address] [place] [address] Darren Youssef MD 05/09/2024 Treatment [facility] [address] [place] [address] 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, WELFARE CENTRE MANAGER-PEOPLESOFT HR DEVELOPER 05/04/2024 Orders Only [facility] [address] [place] [phone] Darren Youssef MD 04/27/2024 Orders Only [facility] [address] [place] [phone] Darren Youssef MD 04/22/2024 Treatment [facility] [address] [place] [address] Darren Youssef MD 04/20/2024 Orders Only [facility] [address] [facility] [address] Darren Youssef MD 04/13/2024 Orders Only [facility] [address] [facility] [phone] Darren Youssef MD 04/13/2024 Treatment [facility] [address] [place] [address] 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 Lazaro, WELFARE CENTRE MANAGER-[employer] HR DEVELOPER 04/06/2024 Orders Only [facility] [address] [facility] [address] Darren Youssef MD 04/04/2024 Treatment [facility] [address] [place] [address] Darren Youssef MD from Last 3 Months [...] 06/06/2015 04/11/2015, 03/23/2013, 08/25/2003, Additional history exists Diabetes: Ophthalmology Exam 09/08/2019 Diabetes: Pedal Pulse Checked 09/08/2019 Diabetes: Sensory Foot Exam 09/08/2019 Diabetes: Visual Foot Exam 09/08/2019 Diabetes: Hemoglobin A1C 08/29/202405/31/ 024, 01/12/2024, 09/24/2020, Additional history exists Influenza Vaccine Completed 03/23/2024, , 03/10/2022, Additional history exists Procedures Procedure Name Priority Date/Time Associated Diagnosis Comments HEMATOLOGY Routine 06/29/2024 HEMATOLOGY Routine 06/22/2024 [facility] LAB RESULTS Routine 06/20/2024 HD KINETICS Routine 06/20/2024 CHEMISTRY Routine 06/20/2024 POST CHEMISTRY Routine 06/20/2024 [facility] LAB RESULTS Routine 06/15/2024 HEMATOLOGY Routine 06/15/2024 HD KINETICS Routine 06/15/2024 POST CHEMISTRY Routine 06/15/2024 CHEMISTRY Routine 06/15/2024 IMMUNO CHEMISTRY Routine 06/15/2024 HEMATOLOGY Routine 06/10/2024 HEMATOLOGY Routine 05/18/2024 [facility] LAB RESULTS Routine 05/11/2024 HD KINETICS Routine 05/11/2024 POST CHEMISTRY Routine 05/11/2024 HEMATOLOGY Routine 05/11/2024 IMMUNO CHEMISTRY Routine 05/11/2024 CHEMISTRY Routine 05/11/2024 HEMATOLOGY Routine 05/04/2024 HEMATOLOGY Routine 04/27/2024 HEMATOLOGY Routine 04/20/2024 IMMUNO CHEMISTRY Routine 04/20/2024 [facility] LAB RESULTS Routine 04/13/2024 HD KINETICS Routine 04/13/2024 POST CHEMISTRY Routine 04/13/2024 TRACE ELEMENTS Routine 04/13/2024 SPECIAL CHEMISTRY Routine 04/13/2024 CHEMISTRY Routine 04/13/2024 HEMATOLOGY Routine 04/13/2024 IMMUNO CHEMISTRY Routine 04/13/2024 CHEMISTRY Routine 04/13/2024 HEMATOLOGY Routine 04/06/2024 HEMOGLOBIN A1C Routine 09/24/2020 11:00 AM CDT from Last 3 Months or Most Recently Relevant to Health Maintenance Results * (ABNORMAL) HEMATOLOGY (06/29/2024) Only the most recent of11 resultswithin the time period is included. [facility] Hemoglobin 8.2(L) 14.0 - 18.0 g/dL [facility] Hemoglobin x 3 24.6(L) 42.0 - 54.0 % [facility] 06/29/2024 06/30/2024 2:1 7 AM PECAN SHELLER Narrative [facility] - 06/30/2024 Unless otherwise specified, test(s) performed at: [facility], [address] [place] [address], [place] [address] LAP CUTTER TRUER OPERATOR: Rojas Kirkland M.D., Ph.D For any questions, please call customer service at FREQUENCY:OTHER Resulting Agency Comment Specimen source: Blood us Darren Youssef MD LAB BLOOD ORDERABLES Final Re sult [facility] See order comments or contact performing lab Unknown, [place] * HD KINETICS (06/20/2024) Only the most recent of4 resultswithin the time period is included. [facility] % Urea Reduction 71 65 - 80 % [facility] 06/20/2024 06/21/2024 10: 11 AM PECAN SHELLER Narrative [facility]24 Unless otherwise specified, test(s) performed at: [facility], [address] [place] [address], [place] [address] LAP CUTTER TRUER OPERATOR: Rojas Kirkland M.D., Ph.D For any questions, please call customer service at FREQUENCY:OTHER Resulting Agency Comment Specimen source: Plasma Darren Youssef MD LAB BLOOD ORDERABLES Final Re sult Performing Organization Address [facility] Co de Phone Number [facility] See order comments or contact performing lab Unknown, [place] * (ABNORMAL) POST CHEMISTRY (06/20/2024) Only the most recent of4 resultswithin the time period is included. BUN Post Dialysis 22(H) 6 - 19 mg/dL [facility] 06/20/2024 06/21/2024 10: 11 AM PECAN SHELLER Narrative [facility]24 Unless otherwise specified, test(s) performed at: [facility], [address] [place] [address], [place] [address] LAP CUTTER TRUER OPERATOR: Rojas Kirkland M.D., Ph.D For any questions, please call customer service at FREQUENCY:OTHER Resulting Agency Comment Specimen source: Plasma Darren Youssef MD LAB BLOOD ORDERABLES Final Re sult Performing Organization Address [facility]/ZIP Co de Phone Number [facility] See order comments or contact performing lab Unknown, [place] * (ABNORMAL) [facility] Chemistry (06/20/2024) Only the most recent of5 resultswithin the time period is included. BUN 76(H) 6 - 19 mg/dL [facility] 06/20/2024 06/21/2024 1:4 4 PM PECAN SHELLER Narrative [facility] - 06/21/2024 Unless otherwise specified, test(s) performed at: [facility], [address] [place] [address], [place] [address] LAP CUTTER TRUER OPERATOR: Rojas Kirkland M.D., Ph.D For any questions, please call customer service at FREQUENCY:OTHER Resulting Agency Comment Specimen source: Serum Darren Youssef MD LAB BLOOD ORDERABLES Final Re sult [facility] See order comments or contact performing lab Unknown, [place] * [facility] Lab Results (06/20/2024) Only the most recent of4 resultswithin the time period is included. Pathologist [facility] spKt/V Got 1.43 [facility] PCR 75.47 [facility] spKt/V (Daugirdas II) 1.43 [facility] eKt/V ([place]) 1.23 [facility] nPCR_HD 1.04 [facility] eKt/V Gotch 1.21 [facility] eNPCR 0.96 [facility] eKdrt/V 1.21 [facility] WSTDKT/V 2.4 [facility] 06/20/2024 06/20/2024 Result [facility] Ordering Provider LAB BLOOD ORDERABLES Final Result Performing Organization Address City/[facility]/ZIP Co de Phone Number [facility] Contact Performing lab Unknown, [place] * IMMUNO CHEMISTRY (06/15/2024) Only the most recent of4 resultswithin the time period is included. Pathologist [facility] Hep B Surface Ag Negative Negative [facility] 06/15/2024 06/16/2024 10: 07 AM PECAN SHELLER Narrative [facility] - 06/16/2024 Unless otherwise specified, test(s) performed at: [facility], [address] [place] [address], [place] [address] LAP CUTTER TRUER OPERATOR: Rojas Kirkland M.D., Ph.D For any questions, please call customer service at FREQUENCY:MONTHLY Resulting Agency Comment Specimen source: Plasma Darren Youssef MD LAB BLOOD ORDERABLES Final Re sult Performing Organization Address [facility]/ZIP Co de Phone Number [facility] See order comments or contact performing lab Unknown, [place] * SPECIAL CHEMISTRY (04/13/2024) Pathologist [facility] Vitamin D, 25-OH, Total 56.9 30.0 - 100.0 ng/mL [facility] Comment: Please Note: Effective June 16, 2021, the methodology for this test has changed to the SIEMENS ATELLICA method 04/13/2024 04/14/2024 5:5 9 PM PECAN SHELLER Narrative Resulting Agency Comment Specimen source: Serum Darren Youssef MD LAB BLOOD BANK TEST ORDERABLE S Final Result Performing Organization Address [facility] de Phone Number [facility] See order comments or contact performing lab Unknown, [place] * TRACE ELEMENTS (04/13/2024) [facility] Aluminum 8 0 - 10 mcg/L [facility] Comment: This test was developed and its performance characteristics determined by [facility]. It has not been cleared or approved by the FDA. The laboratory is regulated under CLIA as qualified to perform high complexity testing. This test is used for clinical purposes. It should not be regarded as investigational or for research. 04/13/2024 04/14/2024 8:1 8 AM PECAN SHELLER Narrative [facility] - 04/15/2024 Unless otherwise specified, test(s) performed at: [facility], [address] [place] [address], [place] [address] LAP CUTTER TRUER OPERATOR: Rojas Kirkland M.D., Ph.D For any questions, please call customer service at FREQUENCY:MONTHLY Resulting Agency Comment Specimen source: Serum Darren Youssef MD LAB BLOOD ORDERABLES Final Re sult Performing Organization Address [facility] Co de Phone Number [facility] See order comments or contact performing lab Unknown, [place] * (ABNORMAL) Hemoglobin A1c (09/24/2020 11:00 AM CDT) [facility] Hemoglobin A1C 5.8(H) 0.0 - 5.6 %A1c APS DAVITA KSN 09/24/2020 11:0 0 AM CDT 09/25/2020 12:06 PM CDT us Checo Sky MD LAB BLOOD ORDERABLES Edited Resu lt - Final ADIN RAYO KSMMN from Last 3 Months or Most Recently Relevant to Health Maintenance Insurance [facility] MEDICARE
--- OUTSIDE RECORDS SUMMARY | 2024-07-01 17:04 | XMS_ITS | Encounter Summary ---
Author Name [facility] [place] [facility] Address [address] [place] [address] Care Team Providers Care Bagman/Woman Name Role Phone BISIURVASHI Primary Care Provider Unavailabl e Insurance Providers: [...] Blanchard's Name Patient's Relationship to Policy Blanchard [facility] (WNR) MEDICARE ADVANTAGE [facility] (WNR) Jun 08, 2023 [id number] SHERYL SERRANO PATIENT MEDICARE (WNR) MEDICARE (M) RR PART A Feb 06, 2003 RR PART A [id number] SHERYL SERRANO PATIENT MEDICARE (WNR) MEDICARE (M) RR PART B Feb 06, 2003 RR PART B [id number] SHERYL SERRANO PATIENT MEDICARE PART D (WNR) MEDICARE (M) PART D Jun 08, 2022 PART D [id number] SHERYL SERRANO PATIENT [employer] MEDICARE SECONDARY (NO B EXC) UPREH S Jun 08, 2009 [id number] SHERYL SERRANO PATIENT Selected Encounter This section includes the information on record at [place] for the Encounter. Date/Time Encounter Type Encounter Description Reason Pro vider Source Jun 14, 2024 08:57 AM Outpatient Encounter TELEPHONE PRIMARY CARE IHE Encounter Template Text not used by [place] Plan of Treatment: Future Appointments (+ 6 months) and Future Tests (+/- 45 days) The Plan of Treatment section includes future care activities for the patient from all [place] treatmentfacilities. This section includes future appointments and future orders which are active, pending or scheduled. Future Appointments This section includes appointments that were scheduled to occur 6 months from the date of the Encounter, up to a maximum of 20 appointments. The data comes from all [place] treatment facilities. Appointment Date/Time Appointment Type Appointme nt Facility Name Jul 26, 2024 01:00 PM AMBULATORY - REHAB MEDICIN E [facility] Social History: Smoking Status (Most current) and Tobacco Use (All prior to encounter date) This section includes the most current, and the historical, smoking and tobacco- related health factors from the [place] facility where the Encounter took place. Current Smoking Status This section includes the most current smoking, or tobacco-related health factor, from the [place] facility where the Encounter took place. Date/Time Current Smoking Status Comment Facil ity Dec 31, 2023 01:30 PM VA-TOBACCO FORMER USER [facility] Tobacco Use History This section includes a history of the smoking, or tobacco-related health factors, that were collected on or before the date of the Encounter. The data comes from the [place] facility where the Encounter took place. Date/Time Smoking Status/Tobacco Use Comment F acility Dec 31, 2023 01:30 PM VA-TOBACCO QUIT 15 YRS OR MORE [facility] Dec 18, 2022 01:00 PM VA-TOBACCO FORMER USER [facility] Dec 18, 2022 01:00 PM VA-TOBACCO QUIT 15 YRS OR MORE [facility] November 05, 2021 10:00 AM VA-TOBACCO FORMER USER [facility] November 05, 2021 10:00 AM VA-TOBACCO QUIT 15 YRS OR MORE [facility] Dec 10, 2018 12:57 PM VA-TOBACCO FORMER USER [facility] Dec 10, 2018 12:57 PM VA-TOBACCO QUIT 15 YRS OR MORE [facility] Feb 25, 2018 12:23 PM VA-TOBACCO FORMER USER [facility] Feb 25, 2018 12:23 PM VA-TOBACCO QUIT 15 YRS OR MORE [facility] Apr 10, 2015 02:55 PM FORMER TOBACCO USER 7Y OR GREATE R [facility] Apr 27, 2014 10:17 AM FORMER TOBACCO USER 7Y OR GREATE R [facility] Jun 18, 2006 07:23 AM FORMER TOBACCO USER 7Y OR GREATE R [facility] Advance Directives: All historical and current Section Date Range: From patient's date of to the date document was created. This section includes ALL of a patient's completed or amended [place] Advance and Rescinded Directives. The entries below indicate that a directive exists for the patient, but an actual copy is not included with this document. The data comes from all [place] facilities. Date Advance Directives Provider Source May 23, 2003 ADVANCE DIRECTIVE LORRIEHEIDIMarika LUNA [facility] Encounter Notes: All associated encounter notes This section contains the clinical notes associated to the Encounter. Date/Time Encounter Note(s) Provider Source Jun 14, 2024 08:57 AM PRIMARY CARE NONVA NOTE: LOCAL TITLE: CO-MANAGED CARE NOTE STANDARD TITLE: PRIMARY CARE NONVA NOTE DATE OF NOTE: JUN 14, 2024@08:57 ENTRY DATE: JUN 14, 2024@08:57:27 AUTHOR: ESTEBAN TORRES EXP COSIGNER: URGENCY: STATUS: COMPLETED CO-MANAGED CARE NOTE Has ADDENDA Received a request for: 1. Clopidogrel 75mg tablet, take 1 once daily. Records scanned in [facility] and available for review. Rx written by: Anna Marie Oglesby Facility: [facility] Local provider phone #[phone] Local provider fax #[phone] Please alert me if med isn't approved or additional information is requested. If med is denied let me know what alternatives would be approved so I can communicate that information back to the local provider. /daljit TORRES LPN Co-Supervisor [employer] Signed: 06/14/2024 09:13 Receipt Acknowledged By: 06/15/2024 12:20 /daljit Munguia MD Physician 06/20/2024 ADDENDUM STATUS: COMPLETED according to [facility]: angiogram and angioplasty of vessels in the left leg on June 03, 2024. Started on clopidogrel, unclear how long they plan on continuing. Rx resent to pharmacy with above information /es/ Urvashi Munguia MD Physician Signed: 06/20/2024 12:00 ESTEBAN TORRES [facility]
--- OUTSIDE RECORDS SUMMARY | 2024-07-01 17:04 | XMS_ITS | Encounter Summary ---
Author Name [facility] [place] [facility] Address [address] [place] [address] Care Team Providers Care Child Welfare Consultant Name Role Phone URVASHI MATHEWS Primary Care [...] Blanchard's Name Patient's Relationship to Policy Blanchard [facility] (WNR) MEDICARE ADVANTAGE [facility] (WNR) Jun 08, 2023 [id number] SHERYL SERRANO PATIENT MEDICARE (WNR) MEDICARE (M) RR PART A Feb 06, 2003 RR PART A [id number] JANETTEVannesa SHERYL PATIENT MEDICARE (WNR) MEDICARE (M) RR PART B Feb 06, 2003 RR PART B [id number] SHERYL SERRANO PATIENT MEDICARE PART D (WNR) MEDICARE (M) PART D Jun 08, 2022 PART D [id number] SHERYL SERRANO PATIENT [employer] MEDICARE SECONDARY (NO B EXC) UPREH S Jun 08, 2009 [id number] SHERYL SERRANO PATIENT Selected Encounter This section [...] activities for the [facility] [place] [facility] This section includes future appointments and future orders which are active, pending or scheduled. Future Appointments This section includes appointments that were scheduled to occur 6 months from the date of the Encounter, up to a maximum of 20 appointments. The data comes from all [place] treatment facilities. Appointment Date/Time Appointment Type Appointme nt Facility Name Jul 26, 2024 01:00 PM AMBULATORY - REHAB MEDICIN E [facility] Social History: Smoking Status (Most current) and Tobacco Use (All prior to encounter date) This section includes the most current, and the historical, smoking and tobacco- related health factors from the [place] facility where the Encounter took place. Current Smoking Status This section includes the most current smoking, or tobacco-related health factor, from the [place] facility where the Encounter took place. Date/Time Current Smoking Status Comment Facil ity Dec 31, 2023 01:30 PM VA-TOBACCO FORMER USER [facility] Tobacco Use History This section includes a history of the smoking, or tobacco-related health factors, that were collected on or before the date of the Encounter. The data comes from the [place] facility where the Encounter took place. Date/Time Smoking Status/Tobacco Use Comment F acility Dec 31, 2023 01:30 PM VA-TOBACCO QUIT 15 YRS OR MORE [facility] Dec 18, 2022 01:00 PM VA-TOBACCO FORMER USER [facility] Dec 18, 2022 01:00 PM VA-TOBACCO QUIT 15 YRS OR MORE [facility] November 05, 2021 10:00 AM VA-TOBACCO FORMER USER [facility] November 05, 2021 10:00 AM VA-TOBACCO QUIT 15 YRS OR MORE [facility] Dec 10, 2018 12:57 PM VA-TOBACCO FORMER USER [facility] Dec 10, 2018 12:57 PM VA-TOBACCO QUIT 15 YRS OR MORE [facility] Feb 25, 2018 12:23 PM VA-TOBACCO FORMER USER [facility] Feb 25, 2018 12:23 PM VA-TOBACCO QUIT 15 YRS OR MORE [facility] Apr 10, 2015 02:55 PM FORMER TOBACCO USER 7Y OR GREATE R [facility] Apr 27, 2014 10:17 AM FORMER TOBACCO USER 7Y OR GREATE R [facility] Jun 18, 2006 07:23 AM FORMER TOBACCO USER 7Y OR VIRY R [facility] Advance Directives: All historical and current Section [...] May 23, 2003 ADVANCE DIRECTIVE LORRIEHEIDIMarika [facility] Encounter Notes: All associated encounter [...] medications may not be available for window picking machine operator for several days. The [place] formulary can be located on the following website which provides you with formulary agents when appropriate and criteria for use if available. http://www.pbm.[place].gov/apps/chace [email or web address] Please call the Outpatient pharmacy provider triage line at [phone] if you have any questions. Thank you, /katey/ JULITA SHARP Pharmacist Signed: 06/20/2024 11:21 Receipt Acknowledged By: 06/20/2024 12:03 /es/ Urvashi Mathews MD Physician JULITA SHARP [facility]
--- OUTSIDE RECORDS SUMMARY | 2024-07-01 17:04 | XMS_ITS ---
Author Organization [facility] Address Unknown Allergies, Adverse Reactions, Alerts Substance Reaction Status Noted Date Resolved Date Omeprazole active 02/14/2021 Metoclopramide active 02/14/2021 Lisinopril active 02/14/2021 Lipitor active 02/14/2021 Problems Problem Status Start Date End Date COVID-19 (Primary) (U07.1 - ICD-10-CM) ACTIVE PNEUMONIA DUE TO CORONAVIRUS DISEASE 2019 (J12.82 - ICD-10-CM) ACTIVE 02/14/2021 END STAGE RENAL DISEASE (N18.6 - ICD-10-CM) ACTIVE 02/14/2021 TYPE 2 DIABETES MELLITUS WIT H DIABETIC NEUROPATHY, UNSPECIFIED (E11.40 - ICD-10-CM) ACTIVE 02/14/2021 OBESITY, UNSPECIFIED (E66.9 - ICD-10-CM) ACTIVE 02/14/2021 UNSTEADINESS ON FEET (R26.81 - ICD-10-CM) ACTIVE 02/14/2021 MUSCLE WEAKNESS (GENERALIZED) (M62.81 - ICD-10-CM) ACT ALEE 02/07/2021 NEED FOR ASSISTANCE WITH PERSONAL CARE (Z74.1 - ICD-10 -CM) ACTIVE 02/07/2021 Encounters Encounter Performer Performer Role Encounter Diagnoses Location Date Discharge - Discharged to home or self care - Home - Private home/apt. with home health services [facility] 02/14/2021 03:00 pm EDT - 02/28/2021 05:15 pm EDT Immunizations Vaccine Date TB 2 Step Mantoux Skin Test 02/25/2021 0 1:00 am EDT TB 2 Step Mantoux Skin Test 02/14/2021 0 4:00 pm EDT Pneumococcal Vaccine PCV 13 04/11/2015 0 1:00 am EST Social History
--- OUTSIDE RECORDS SUMMARY | 2024-07-01 17:04 | XMS_ITS | Continuity of Care Document ---
Author Name [facility] Organization [facility] Care Team Providers Care Dress Cap Maker Name Role Phone [facility] Unavailable Unavailable Problems Combined list of problems from Department of Defense and Veterans 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 It does not include entries that were removed or entered in error. Problem Status Onset Date Problem Type Date of Resolution Comments Source Adenoma of large intestine Active Condition Jan 17, 2005 Entered By: TOMMY SARMIENTO Comment: colonoscopy and polypectomy 12/10, tubular adenoma at [facility] Cataract, Senile, Unsp Active Condition [facility] Chronic cough Active Condition [facility] Chronic obstructive lung disease Active Condition [facility] Chronic rhinitis Active Condition [facility] Coronary arteriosclerosis Active Condition Nov 10 7 Entered By: LIZZETTE WEI Comment: s/p [id number] at [facility] in 07/15 [facility] Diabetes mellitus Active Condition [facility] Diabetic neuropathy Active Condition [facility] Diabetic renal disease Active Condition Dec 02, 2018 Entered By: CARLOS DALTON Comment: 10/2018: started hemodialysis @ [facility] in 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 [facility] Dyslipidemia Active Condition [facility] End-stage renal disease Active Condition [facility] Essential hypertension Active Condition [facility] Exposure to potentially hazardous substance Active Condition Dec 18, 2022 Entered By: CORRINE MATHEWS Comment: Asbestos [facility] Ganglion of wrist Active Condition [facility] Gastroesophageal reflux disease without esophagitis Active Condition [facility] Hemorrhoid Active Condition [facility] Hyperparathyroidism due to renal insufficiency Active Condition [facility] Hypothyroidism Active Condition [facility] Incontinence of feces Active Condition [facility] Indwelling catheter inserted Active Condition [facility] Obstructive Sleep Apnea of Adult (SCT [id number]) Active Condition October 28, 2022 Entered By: KINGS ROCHA Comment: APAP: 10-20, Ramp: 5x10 min, [place] [facility] Oropharyngeal dysphagia Active Condition Dec 14, 2022 Entered By: CORRINE MATHEWS Comment: 2013 [employer] eval in chart [facility] Psoriasis Nos [facility] Shared care - mainframe consultant and GP Active Condition Dec 02 Entered By: CARLOS DALTON Comment: [phone] ov 2020 Entered By: CARLOS DALTON Comment: Patient Care Representative: Dr James Pérez [phone] ov 2020 Entered By: CARLOS DALTON Comment: [facility] Cough (ICD-9-CM 786.2) Inactive Condition 03/23/2013 [facility] Diabetic Foot Ulcer (ICD-9-CM 250.80/707.8) Inactive Condition 03/23/2013 [facility] Diagnosis: ICD-10-CM I25.10 Athscl heart disease of [place] coronary artery w/o ang pctrs Active Diagnosis [facility] Diagnosis: ICD-10-CM R26.89 Other abnormalities of gait and mobility Active Diagnosis [facility] Diagnosis: ICD-10-CM M79.646 Pain in unspecified finger(s) Active Diagnosis [facility] Diagnosis: ICD-10-CM H90.3 Sensorineural hearing loss, bilateral Active Diagnosis [facility] Diagnosis: ICD-10-CM Z01.118 Encntr for exam of ears and hearing w oth abnormal findings Active Diagnosis [facility] Diagnosis: ICD-10-CM H04.129 Dry eye syndrome of unspecified lacrimal gland Active Diagnosis [facility] Diagnosis: ICD-10-CM Z46.1 Encounter for fitting and adjustment of hearing aid Active Diagnosis [facility] Diagnosis: ICD-10-CM N18.6 End stage renal disease Active Diagnosis [facility] Diagnosis: ICD-10-CM R26.9 Unspecified abnormalities of gait and mobility Active Diagnosis [facility] Diagnosis: ICD-10-CM J44.9 Chronic obstructive pulmonary disease, unspecified Active Diagnosis [facility] Diagnosis: ICD-10-CM Z65.8 Oth problems related to psychosocial circumstances Active Diagnosis [facility] Medications Combined list of outpatient medications [...] RELIEF). RESPIR ATORY (INHAL ATION) ACTIVE 11/09/2024 [id number] 5 CASANDRA DALTON 2023 2 [facility] ALBUTEROL 90MCG/ACTUA T (CFC-F) INHL,ORAL,8 .5GM DOSE COUNTER INHALE 2 PUFFS BY INHALATI ON EVERY 4 HOURS NEEDED FOR BREATHIN G SHAKE WELL (FOR IMMEDIAT E RELIEF). RESPIR ATORY (INHAL ATION) DISCONT INUED 08/21/2023 [id number] 4 CASANDRA DALTON 2022 2 [facility] AZELASTINE HCL 137MCG/SPRA Y INHL,NASAL, 30ML SPRAY 1 PUFF IN EACH NOSTRIL TWICE A DAY FOR NASAL SYMPTOMS NASAL ACTIVE 12/31/2024 [id number] 5 RODRÍGUEZ MATHEWS 2023 2 [facility] CALCIUM CARBONATE TAB,CHEWABL E CHEW ONE TABLET BY MOUTH FOUR TIMES A DAY NEEDED ORAL ACTIVE RODRÍGUEZ MATHEWS 2022 [facility] CLOPIDOGREL BISULFATE 75MG TAB TAKE ONE TABLET BY MOUTH EVERY DAY TO PREVENT BLOOD CLOTS LENGTH OF TREATMEN T: MARIANA TE, CO-MANAG ED CARE PRESCRIP TION ORAL ACTIVE 06/16/2025 [id number] 5 RODRÍGUEZ MATHEWS 2024 90 [facility] COENZYME Q10 CAP/TAB TAKE ONE TABLET BY MOUTH EVERY DAY ORAL ACTIVE CASANDRA DALTON 2012 [facility] CYCLOSPORIN E 0.05% (PF) EMULSION,OP H,0.4ML INSTILL 1 DROP BOTH EYES TWICE A DAY OPHTHA LMIC ACTIVE 08/10/2024 [id number] 4 FB-PURFEE RST,MATHEW OD 2023 60 [facility] DEXTROMETHO RPHAN HBR 10MG/GUAIFE NESIN 100MG/5ML (AF & SF) LIQUID TAKE 1 TEASPOON FUL BY MOUTH EVERY 4 HOURS NEEDED FOR COUGH AND CONGESTI ON ORAL 03/09/2024 [id number] 4 [facility] 2022 120 [facility] DIALYVITE TAB TAKE 1 TABLET BY MOUTH EVERY DAY ORAL ACTIVE 07/02/2024 [id number] 5 [facility]I [facility] 2023 100 [facility] DIALYVITE TAB TAKE 1 TABLET BY MOUTH EVERY DAY ORAL DISCONT INUED 09/10/2023 [id number] 4 BISIRODRÍGUEZ 2022 100 [facility] FLUTICASONE 250MCG/SALM ETEROL 50MCG INHL,ORAL,D ISKUS,60 INHALE 1 PUFF BY INHALATI ON TWICE A DAY TO PREVENT TROUBLE BREATHIN G -RINSE MOUTH AFTER USING RESPIR ATORY (INHAL ATION) ACTIVE 12/28/2024 [id number] 4 [facility] 2023 3 [facility] FLUTICASONE 250MCG/SALM ETEROL 50MCG INHL,ORAL,D ISKUS,60 INHALE 1 PUFF BY INHALATI ON TWICE A DAY TO PREVENT TROUBLE BREATHIN G -RINSE MOUTH AFTER USING RESPIR ATORY (INHAL ATION) DISCONT INUED 09/23/2023 [id number] 4 [facility] 2022 3 [facility] INSULIN,ASP ART,HUMAN (EQV-NOVOLO G) 100 UNIT/ML,FLE XPEN,3ML INJECT 5 UNITS UNDER THE SKIN BEFORE MEALS FOR DIABETES SUBCUT ANEOUS ACTIVE 10/26/2024 [id number] 4 BISIRODRÍGUEZ 2023 5 [facility] INSULIN,ASP ART,HUMAN (EQV-NOVOLO G) 100 UNIT/ML,FLE XPEN,3ML INJECT 5 UNITS UNDER THE SKIN TWICE A DAY TO DECREASE BLOOD SUGAR-- INJECT IMMEDIAT LINDA BEFORE MEAL (PEN FILL APPROVED ) REPLACES REGULAR INSULIN PEN SUBCUT ANEOUS 05/13/2023 [id number] 3 RODRÍGUEZ MATHEWS 2021 5 [facility] INSULIN,GLA RGINE,HUMAN 100 UNIT/ML INJ,SOLOSTA R,3ML INJECT 18 UNITS UNDER THE SKIN EVERY DAY FOR DIABETES DISCAR D PEN 28 DAYS AFTER INITIAL USE SUBCUT ANEOUS DISCONT INUED (EDIT) 06/06/2024 [id number] 4 RODRÍGUEZ MATHEWS 2023 5 [facility] INSULIN,GLA RGINE-YFGN 100UNIT/ML INJ PEN,3ML INJECT 18 UNITS UNDER THE SKIN EVERY DAY FOR DIABETES DISCAR D PEN 28 DAYS AFTER INITIAL USE SUBCUT ANEOUS 06/09/2024 [id number] 4 RODRÍGUEZ MATHEWS 2023 5 [facility] LEVOTHYROXI NE NA 200MCG TAB (SYNTHROID) TAKE ONE TABLET BY MOUTH EVERY DAY FOR THYROID ORAL ACTIVE 12/28/2024 [id number] 5 RODRÍGUEZ MATHEWS 2023 90 [facility] LEVOTHYROXI NE NA 200MCG TAB (SYNTHROID) TAKE ONE TABLET BY MOUTH EVERY DAY FOR THYROID ORAL DISCONT INUED 01/13/2024 [id number] 4 RODRÍGUEZ MATHEWS 2022 90 [facility] LORATADINE 10MG TAB TAKE ONE TABLET BY MOUTH EVERY DAY NEEDED ORAL ACTIVE RODRÍGUEZ MATHEWS 2022 [facility] MARINE LIPID (FISH OIL) CAP,ORAL TAKE 1200MG BY MOUTH EVERY DAY ORAL ACTIVE CASANDRA DALTON 2010 [facility] MIDODRINE HCL 10MG TAB TAKE ONE TABLET BY MOUTH DIRECTED - TAKE 1 TABLET BEFORE DIALYSIS AND 1 TABLET AFTER DIALYSIS , NEEDED FOR HYPOTENS ION OTHER DAYS ORAL ACTIVE 06/21/2025 [id number] 5 Stefany TRAN 2024 90 [facility] MONTELUKAST NA 10MG TAB TAKE ONE TABLET BY MOUTH EVERY DAY ORAL ACTIVE 06/21/2025 [id number] 5 CASANDRA DALTON 2024 90 [facility] MONTELUKAST NA 10MG TAB TAKE ONE TABLET BY MOUTH EVERY DAY ORAL DISCONT INUED 05/08/2024 [id number] 4 CASANDRA DALTON 2022 90 [facility] NITROGLYCER IN 0.4MG TAB,SUBLING UAL DISSOLVE ONE TABLET UNDER THE TONGUE PRN SUBLIN GUAL ACTIVE CASANDRA DALTON 2010 [facility] PANTOPRAZOL E NA 40MG TAB,EC TAKE ONE TABLET BY MOUTH EVERY DAY ONE-HALF HOUR BEFORE EATING. ORAL ACTIVE 06/21/2025 [id number] 5 CASANDRA DALTON 2024 90 [facility] PANTOPRAZOL E NA 40MG TAB,EC TAKE ONE TABLET BY MOUTH EVERY DAY ONE-HALF HOUR BEFORE EATING. ORAL DISCONT INUED 07/02/2024 [id number] 4 CASANDRA DALTON 2023 90 [facility] PRAVASTATIN NA 40MG TAB TAKE ONE TABLET BY MOUTH AT BEDTIME FOR CHOLESTE ROL ORAL DISCONT INUED 06/05/2024 [id number] 3 CASANDRA DALTON 2022 90 [facility] PRAVASTATIN NA 40MG TAB TAKE ONE TABLET BY MOUTH AT BEDTIME FOR CHOLESTE ROL ORAL 06/06/2024 [id number] 4 RODRÍGUEZ MATHEWS 2023 90 [facility] SULFAMETHOX AZOLE 800MG/TRIME THOPRIM 160MG TAB TAKE 1 TABLET BY MOUTH TWICE A DAY ORAL 01/30/2024 [id number] 4 RODRÍGUEZ MATHEWS 2023 20 [facility] TIOTROPIUM 2.5MCG/ACTU AT INHL,ORAL,6 0D,4GM INHALE TWO PUFFS BY INHALATI ON EVERY DAY FOR ASTHMA RESPIR ATORY (INHAL ATION) DISCONT INUED 04/01/2025 [id number] 4 ZULETA,DC NA 2023 1 [facility] TIOTROPIUM 2.5MCG/ACTU AT INHL,ORAL,6 0D,4GM INHALE TWO PUFFS BY INHALATI ON EVERY DAY FOR ASTHMA RESPIR ATORY (INHAL ATION) DISCONT INUED 08/26/2024 [id number] 4 ZULETA,DC NA 2023 1 [facility] TIOTROPIUM 2.5MCG/ACTU AT INHL,ORAL,6 0D,4GM INHALE TWO PUFFS BY INHALATI ON EVERY DAY FOR ASTHMA RESPIR ATORY (INHAL ATION) DISCONT INUED 10/29/2023 [id number] 4 ZULETA,DC NA 2022 1 [facility] TIOTROPIUM 2.5MCG/ACTU AT INHL,ORAL,6 0D,4GM INHALE TWO PUFFS BY INHALATI ON EVERY DAY FOR ASTHMA RESPIR ATORY (INHAL ATION) 06/29/2024 [id number] 5 RODRÍGUEZ MATHEWS 2024 3 [facility] VANICREAM APPLY THIN LAYER TOPICALL Y EVERY DAY FOR DRY SKIN TOPICA L ACTIVE 12/28/2024 [id number] 5 RODRÍGUEZ MATHEWS 2023 1362 [facility] VANICREAM APPLY THIN LAYER TOPICALL Y EVERY DAY FOR DRY SKIN TOPICA L DISCONT INUED 12/19/2023 [id number] 4 RODRÍGUEZ MATHEWS 2022 1362 [facility] VITAMIN E 400UNT CAP TAKE 1 CAPSULE BY MOUTH EVERY DAY ORAL ACTIVE ME VELMA DAI 2013 [facility] ZINC SULFATE TAB TAKE 50MG BY MOUTH EVERY DAY ORAL ACTIVE ME MALAIKA VELMA 2014 [facility] Allergies, Adverse Reactions, Alerts Combined list of allergies from Department of Defense and Veterans 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 It does not include entries that were removed or entered in error. Substance Category Reaction Severity Reaction type Status Date Reported Comments Source ATORVASTATIN Propensity to adverse reactions to drug (finding) Pain in lower limb active 9 [facility] DOXYCYCLINE Propensity to adverse reactions to drug (finding) PRURITIS, Eruption active 4 [facility] HYDROCODONE Propensity to adverse reactions to drug (finding) Disorientat ed, Drowsy, Hallucinati ons active 3 [facility] LIPITOR Propensity to adverse reactions to drug (finding) Cramp active 0 [facility] LISINOPRIL Propensity to adverse reactions to drug (finding) Abdominal discomfort active 7 [facility] METOCLOPRAMI DE Propensity to adverse reactions to drug (finding) Gynecomasti a active 0 [facility] OMEPRAZOLE Propensity to adverse reactions to drug (finding) Diarrhea active 0 [facility] SIMVASTATIN Propensity to adverse reactions to drug (finding) MUSLCE CRAMPS active 4 [facility] Immunizations Combined list of available immunizations from the Department of Defense and [facility] 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 Immunization Series Date Given Administered By Site Reaction Lot Number CVX Code Drug Medical Office Supervisor Status Comments Source INFLUENZA, RECOMBINANT, QUADRIVALENT, PF 2022 185 complet ed [facility] TDAP 2022 [facility] RIGHT DELTO ID [id number] 115 complet ed [facility] INFLUENZA, UNSPECIFIED FORMULATION 2021 88 complet ed [facility] COVID-19 (PFIZER), MRNA, LNP-S, PF, 30 MCG/0.3 ML DOSE, ALY-SUCROSE (AGES 12+ YEARS) 2021 217 complet ed [facility] COVID-19 (PFIZER), MRNA, LNP-S, PF, 30 MCG/0.3 ML DOSE 2020 208 complet ed [facility] INFLUENZA, UNSPECIFIED FORMULATION 2020 88 complet ed [facility] ZOSTER RECOMBINANT 2 2020 187 complet ed [facility] COVID-19 (PFIZER), MRNA, LNP-S, PF, 30 MCG/0.3 ML DOSE 2020 208 complet ed [facility] COVID-19 (PFIZER), MRNA, LNP-S, PF, 30 MCG/0.3 ML DOSE 2020 208 complet ed [facility] ZOSTER RECOMBINANT 1 2019 187 complet ed [facility] INFLUENZA, SEASONAL, INJECTABLE, PRESERVATIVE FREE 2019 140 complet ed [facility] INFLUENZA, UNSPECIFIED FORMULATION 2018 88 complet ed [facility] INFLUENZA, SEASONAL, INJECTABLE, PRESERVATIVE FREE 2017 140 complet ed [facility] INFLUENZA, HIGH DOSE SEASONAL 2016 135 complet ed [facility] INFLUENZA, HIGH-DOSE, TRIVALENT, PF 2015 135 complet ed [facility] INFLUENZA, HIGH DOSE SEASONAL 2014 135 complet ed [facility] PNEUMOCOCCAL CONJUGATE PCV 13 2014 133 complet ed [employer] [id number] 08/22 [facility] INFLUENZA, UNSPECIFIED FORMULATION 2013 88 complet ed [facility] INFLUENZA, UNSPECIFIED FORMULATION 2013 88 complet ed [facility] ZOSTER LIVE 2013 121 complet ed [facility] INFLUENZA, UNSPECIFIED FORMULATION 2012 88 complet ed [facility] PNEUMOCOCCAL, UNSPECIFIED FORMULATION 2012 109 complet ed [employer], [id number], [facility] TDAP 2012 115 complet ed [facility] TDAP 2012 115 complet ed [facility] ZOSTER LIVE 2012 121 complet ed [employer] Lot#[id number] 14 [facility] TDAP 2012 115 complet ed [facility] INFLUENZA, UNSPECIFIED FORMULATION 2011 88 complet ed [facility] INFLUENZA, UNSPECIFIED FORMULATION 2010 88 complet ed [facility] INFLUENZA, UNSPECIFIED FORMULATION 2009 88 complet ed [facility] INFLUENZA, UNSPECIFIED FORMULATION 2008 88 complet ed [facility] TD(ADULT) UNSPECIFIED FORMULATION 2007 139 complet ed [facility] INFLUENZA, SPLIT VIRUS, TRIVALENT, PRESERVATIVE 2007 141 complet ed [facility] TD (ADULT), 5 LF TETANUS TOXOID, PRESERVATIVE FREE, ADSORBED 2007 113 complet ed [facility] INFLUENZA (HISTORICAL) 2006 88 complet ed [facility] INFLUENZA (HISTORICAL) 2005 88 complet ed [facility] INFLUENZA, UNSPECIFIED FORMULATION 2004 88 complet ed [facility] INFLUENZA, UNSPECIFIED FORMULATION 2003 88 complet ed [facility] PNEUMOCOCCAL, UNSPECIFIED FORMULATION 2003 109 complet ed [facility] TD(ADULT) UNSPECIFIED FORMULATION 2003 139 complet ed due next year [facility] INFLUENZA, SPLIT VIRUS, TRIVALENT, PRESERVATIVE 2002 141 complet ed [facility] INFLUENZA (HISTORICAL) 2002 88 complet ed pt states he had a Influenza vaccinati on this yr [facility] TD(ADULT) UNSPECIFIED FORMULATION 1994 139 complet ed [facility] Vital Signs Combined list of inpatient and outpatient Vital Signs from Department of Defense and [facility], ranging from 12 months to all on record, depending upon the facility. Vital Sign Value Date Comments Source SYSTOLIC BLOOD PRESSURE 103 12/31/2023 13:26:57 [facility] DIASTOLIC BLOOD PRESSURE 55 12/31/2023 13:26:57 [facility] PULSE OXIMETRY 95 12/31/2023 13:26:57 [facility] WEIGHT 200.2 12/31/2023 13:26:57 [facility] BMI 27kg/m2 12/31/2023 13:26:57 [facility] PAIN 6 12/31/2023 13:26:57 [facility] TEMPERATURE 98.4 12/31/2023 13:26:57 [facility] PULSE 73 12/31/2023 13:26:57 [facility] RESPIRATION 18 12/31/2023 13:26:57 [facility] Encounters Combined list of: 1) Encounters from Department of Veterans Affairs facilities going back up to [facility] 18 months. 2) Encounters from the Department of Defense facilities going back up to 280 months. Location Location Details Encounter Type Encounter Number Reason For Visit Attending Provider ADM Date DC Date Status Disposition Source [place] [facility] Outpatient Encounter [id number] 01/07 [place] [facility] [place] [facility] Outpatient Encounter [id number] 02/05 [place] [facility] [place] [facility] Outpatient Encounter [id number] 02/11 [facility] PRO PHONE CALL 21-30 MIN [id number] Diagnos is: ICD-10- CM Z65.8 Oth problem s related to psychos ocial circums tances< br/> VESNA GRAY 02/11 [facility] [place] [facility] Outpatient Encounter [id number] DEBRA PINTO 02/18 [facility] SELF CARE MNGMENT TRAINING [id number] Diagnos is: ICD-10- CM J44.9 Chronic obstruc tive pulmona ry disease , unspeci fied
MAGGIE EVANS 02/19 [facility] [place] [facility] Outpatient Encounter [id number] 03/03 [place] [facility] [place] [facility] Outpatient Encounter [id number] Diagnos is: ICD-10- CM R26.9 Unspeci fied abnorma lities of gait and mobilit y
NANCY HOWARD 03/04 [facility] [place] [facility] Outpatient Encounter [id number] 03/06 [place] [facility] [place] [facility] Outpatient Encounter [id number] 03/23 [place] [facility] [place] [facility] Outpatient Encounter [id number] 03/26 [place] [facility] TARGETED CASE MANAGEMENT [id number] Chani PERAZA L 05/04 [facility] HC PRO PHONE CALL 5-10 MIN [id number] Diagnos is: ICD-10- CM N18.6 End stage renal disease
FADUMO HERNANDEZ K 05/05 [facility] TARGETED CASE MANAGEMENT [id number] Chani PERAZA L 05/05 [facility] TARGETED CASE MANAGEMENT [id number] Chani PERAZA L 05/13 [facility] CASE MANAGEMENT [id number] JENNIFER THAPA CCA 05/13 [facility] Outpatient Encounter [id number] 05/13 [facility] Outpatient Encounter [id number] GUADALUPE ACOSTA 05/14 [facility] IS [facility] CASE MANAGEMENT [id number] Chani PERAZA L 05/19 [facility] Outpatient Encounter [id number] 05/19 [facility] Outpatient Encounter [id number] Chani PERAZA L 05/27 [facility] Outpatient Encounter [id number] 05/28 [facility] Outpatient Encounter [id number] 05/28 [facility] Outpatient Encounter [id number] ANSELMO ARMSTRONG 06/02 [facility] Outpatient Encounter [id number] 06/02 [facility] Outpatient Encounter [id number] DARRELL LOO 06/17 [facility] Outpatient Encounter [id number] 06/18 [facility] Outpatient Encounter [id number] Jared RUVALCABA 06/25 [facility] HEARING AID CHECK BOTH EARS [id number] Diagnos is: ICD-10- CM Z46.1 Encount er for fitting and adjustm ent of hearing aid<br/ > DANELLE MAYFIELD Stefany 07/23 [facility] IS [facility] PRO PHONE CALL 5-10 MIN [id number] Diagnos is: ICD-10- CM H04.129 Dry eye syndrom e of unspeci fied lacrima l gland<b r/> FADUMO HERNANDEZ ICA K 08/09 [facility] OFF/OP EST OCTOBER X REQ PHY/QHP [id number] Diagnos is: ICD-10- CM Z01.118 Encntr for exam of ears and hearing w oth abnorma l finding s
DAYANNA CRAWFORD 10/14 [facility] Outpatient Encounter [id number] 10/23 [facility] CONFORMITY EVALUATION [id number] Diagnos is: ICD-10- CM H90.3 Sensori neural hearing loss, bilater al
DAYANNA CRAWFORD 11/16 [facility] Outpatient Encounter [id number] 12/30 [facility] OFFICE O/P EST HI 40 MIN [id number] Diagnos is: ICD-10- CM M79.646 Pain in unspeci fied finger( s)
[place] MATHEWS H 12/30 [place] [place] [facility] Outpatient Encounter [id number] DEBRA PINTO 01/20 [place] [facility] [place] [facility] Outpatient Encounter [id number] 02/10 [place] [facility] [place] [facility] Outpatient Encounter [id number] DEBRA PINTO 02[place]14 [place] [facility] Outpatient Encounter [id number] KALYANI COPELAND H 02/23 [place] [facility] SELF CARE MNGMENT TRAINING [phone] Diagnos is: ICD-10- CM R26.89 Other abnorma lities of gait and mobilit y
RASHEL HAYES 04/07 [facility] SELF CARE MNGMENT TRAINING [id number] Diagnos is: ICD-10- CM R26.89 Other abnorma lities of gait and mobilit y
RASHEL HAYES 04/28 [place] [facility] SELF CARE MNGMENT TRAINING [id number] Diagnos is: ICD-10- CM R26.89 Other abnorma lities of gait and mobilit y
RASHEL HAYES 05/17 [place] [facility] [place] [facility] Outpatient Encounter [id number] 06/06 [place] [facility] [place] [facility] Outpatient Encounter [id number] 06/14 [place] [facility] Outpatient Encounter [id number] 06/20 [place] [facility] [place] [facility] Outpatient Encounter [id number] 06/20 [place] [facility] [place] [facility] NQHP OL DIG ASSMT&MGMT 5-10 [id number] Diagnos is: ICD-10- CM I25.10 Athscl heart disease of [place] coronar y artery w/o ang pctrs<b r/> TL, MARIE Vannesa 06/20 [place] [facility] Social History Combined list of available smoking, tobacco, and 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 Social History Type Response Date Comment Sourc e Tobacco smoking status NHIS NM-TOBACCO FORMER USER 12/31/2023 [facility] History of tobacco use [facility] QUIT 1 5 YRS OR MORE 12/31/2023 [facility] History of tobacco use NM-TOBACCO FORMER USER 12/18/2022 [facility] History of tobacco use NM-TOBACCO FORMER USER 11/05/2021 [facility] History of tobacco use NM-TOBACCO QUIT 1 5 YRS OR MORE 07/28/2019 [facility] History of tobacco use NM-TOBACCO QUIT 1 5 YRS OR MORE 12/10/2018 [facility] History of tobacco use NM-TOBACCO FORMER USER 02/25/2018 [facility] History of tobacco use FORMER TOBACCO US ER 7Y OR GREATER 04/10/2015 [facility] History of tobacco use FORMER TOBACCO US ER 7Y OR GREATER 04/27/2014 [facility] History of tobacco use FORMER TOBACCO US ER 7Y OR GREATER 06/18/2006 [facility] Plan of Care List of future care activities from Department [facility] facilities. Additional future care activities may be listed in the Assessment and Plan section. Date/Time Care Activity Care Activity Detail Facili ty 07/26/2024 AMBULATORY - REHAB MEDICINE AMBULATORY - REHAB MEDICINE [facility] Advance Directives List of completed, amended, or rescinded Advance Directives on record at Department [facility] facilities. An actual copy of the Directive is not included. Date Advance Directive Provider Source 05/23/2003 ADVANCE DIRECTIVE K[facility] ANDRE[facility]
[2024-07-01 17:12] VITALS: BP 134/64; PULSE 78; RESP 18; TEMP 36.9; O2SAT 98; BMI 25.8
--- NOTE | 2024-07-01 17:17 | ED_ITS ---
HPI - General Adult General Date Seen: 07/01/24 Chief complaint: Unspecified Complaint, Adult Stated complaint: Picc line bleeding Time Seen by Provider: 07/01/24 17:12 Source: patient and family Mode of arrival: ambulatory Limitations: no limitations History of Present Illness HPI narrative: Patient is a 4-year-old male presenting to the emergency department with family members for concerns of a bleeding fistula. The bleeding started after his dialysis appointment and at dialysis they did get the bleeding to stop in the patient went home. Was they went home though the bleeding started up again so they called his providers back and were told to come to the emergency department. By the time they arrived to the emergency department the bleeding has again stopped. Patient denies lightheadedness or dizziness. They states he is otherwise acting normally. No other concerns noted. Related Data Home Medications ?Medication ?Instructions ?Recorded ?Confirmed acetaminophen 650 mg 650 mg PO Q8H PRN 12/27/22 05/24/24 tablet,extended release (Tylenol Arthritis Pain) aspirin 81 mg capsule 81 mg PO DAILY 12/27/22 05/23/24 coenzyme Q10 100 mg capsule (Co 100 mg PO DAILY 12/27/22 05/24/24 Q-10) guaifenesin 100 mg/5 mL oral liquid 100 mg PO Q4H PRN coughing 12/27/22 05/24/24 insulin aspart U-100 100 unit/mL 5 unit subcut TIDWM 12/27/22 05/23/24 (3 mL) subcutaneous pen (Novolog FlexPen U-100 Insulin aspart) loratadine 10 mg tablet (Claritin) 10 mg PO DAILY 12/27/22 05/24/24 montelukast 10 mg tablet 10 mg PO HS 12/27/22 05/24/24 (Singulair) nitroglycerin 0.4 mg sublingual 0.4 mg sublingual Q5M PRN 12/27/22 05/24/24 tablet (Nitrostat) sennosides 8.6 mg capsule (senna) 8.6 - 17.2 mg PO BID 12/27/22 05/24/24 B complex 11-folic acid 1 mg-C 100 1 tab PO BID 10/06/23 05/24/24 mg-biotin 300 mcg-zinc 50 mg tablet (Dialyvite) albuterol sulfate 90 mcg/actuation 2 inh inhalation Q4H PRN 10/06/23 05/24/24 aerosol inhaler (Ventolin HFA) cholecalciferol (vitamin D3) 50 50 mcg PO DAILY 10/06/23 05/24/24 mcg (2,000 unit) capsule cyclosporine 0.05 % eye drops in a 1 drp ophthalmic (eye) Q12H 10/06/23 05/24/24 dropperette (Restasis) fluticasone propionate 50 1 spray intranasal DAILY PRN 10/06/23 05/23/24 mcg/actuation nasal spray,suspension (24 Hour Allergy Relief) insulin glargine 100 unit/mL (3 18 unit subcut HS 10/06/23 05/24/24 mL) subcutaneous pen (Lantus Solostar U-100 Insulin) krill 1,000 mg-omega-3 230 mg-dha 1 cap PO DAILY 10/06/23 05/24/24 60 ia-ijx-nvfmuwzzt-astaxan capsule (MegaRed [place]-3 Krill Oil) pantoprazole 40 mg tablet,delayed 40 mg PO DAILY 10/06/23 05/24/24 release pravastatin 80 mg tablet 80 mg PO HS 10/06/23 05/24/24 vitamin E 268 mg (400 unit) capsule 268 mg PO DAILY 10/06/23 05/24/24 clopidogrel 75 mg tablet 75 mg PO DAILY 05/24/24 05/24/24 diphenhydramine HCl 25 mg capsule 25 mg PO Q4H PRN 05/24/24 05/24/24 (Aler-Cap) fluticasone 100 mcg-salmeterol 50 1 inh inhalation BID 05/24/24 05/24/24 mcg/dose blistr powdr for inhalation (Wixela Inhub) hydrocortisone 2.5 % topical cream 1 applic topical BID PRN 05/24/24 05/24/24 levothyroxine 175 mcg capsule 175 mcg PO DAILY 05/24/24 05/24/24 magnesium hydroxide 400 mg/5 mL 30 ml PO DAILY PRN 05/24/24 05/24/24 oral suspension (Dulcolax (magnesium hydroxide)) methyl salicylate 15 %-menthol 10 1 applic topical TID PRN 05/24/24 05/24/24 % topical cream (Analgesic Mascot (m.salic-menthol)) tiotropium bromide 18 mcg capsule 1 cap inhalation DAILY 05/24/24 05/24/24 with inhalation device (Spiriva with HandiHaler) Allergies Allergy/AdvReac Type Severity Reaction Status Date / Time doxycycline Allergy Unknown Verified 05/23/24 16:10 atorvastatin (From Lipitor) Allergy Verified 05/23/24 16:10 hydrocodone Allergy Verified 10/06/23 07:34 lisinopril Allergy Verified 05/23/24 16:10 metoclopramide (From Reglan) Allergy Verified 05/23/24 16:10 omeprazole Allergy Verified 05/23/24 16:10 Review of Systems Narrative: Pertinent systems reviewed and were negative unless stated in HPI PFSH PFS Medical History Frailty syndrome in geriatric patient ?R54 - Age-related physical debility (ICD-10) Coronary artery disease ?I25.10 - Atherosclerotic heart disease of [place] coronary artery without angina pectoris (ICD-10) Recurrent UTI ?N39.0 - Urinary tract infection, site not specified (ICD-10) Secondary hyperparathyroidism (of renal origin) ?N25.81 - Secondary hyperparathyroidism of renal origin (ICD-10) Pneumonia due to COVID-19 virus ?U07.1 - COVID-19 (ICD-10) ?J12.82 - Pneumonia due to coronavirus disease 2019 (ICD-10) Severe obesity ?E66.01 - Morbid (severe) obesity due to excess calories (ICD-10) Mobitz type 1 second degree AV block ?I44.1 - Atrioventricular block, second degree (ICD-10) Calculus of gallbladder without cholecystitis ?K80.20 - Calculus of gallbladder without cholecystitis without obstruction (ICD-10) Anemia of chronic renal failure ?N18.9 - Chronic kidney disease, unspecified (ICD-10) ?D63.1 - Anemia in chronic kidney disease (ICD-10) Allergic rhinitis ?J30.9 - Allergic rhinitis, unspecified (ICD-10) DVT (deep venous thrombosis) ?I82.409 - Acute embolism and thrombosis of unspecified deep veins of unspecified lower extremity (ICD-10) Hypothyroidism ?E03.9 - Hypothyroidism, unspecified (ICD-10) Pulmonary emphysema ?J43.9 - Emphysema, unspecified (ICD-10) Obstructive sleep apnea ?G47.33 - Obstructive sleep apnea (adult) (pediatric) (ICD-10) Colon polyp ?K63.5 - Polyp of colon (ICD-10) Detached retina, left ?H33.22 - Serous retinal detachment, left eye (ICD-10) GERD with esophagitis ?K21.00 - Gastro-esophageal reflux disease with esophagitis, without bleeding (ICD-10) Hypertension ?I10 - Essential (primary) hypertension (ICD-10) Diabetic foot ulcer ?E11.621 - Type 2 diabetes mellitus with foot ulcer (ICD-10) ?L97.509 - Non-pressure chronic ulcer of other part of unspecified foot with unspecified severity (ICD-10) Charcot foot due to diabetes mellitus ?E11.610 - Type 2 diabetes mellitus with diabetic neuropathic arthropathy (ICD-10) Pulmonary asbestosis ?J61 - Pneumoconiosis due to asbestos and other mineral fibers (ICD-10) Myocardial infarction ?I21.9 - Acute myocardial infarction, unspecified (ICD-10) Hypercholesterolemia ?E78.00 - Pure hypercholesterolemia, unspecified (ICD-10) End stage renal disease on dialysis ?N18.6 - End stage renal disease (ICD-10) ?Z99.2 - Dependence on renal dialysis (ICD-10) DM (diabetes mellitus), type 2 ?E11.9 - Type 2 diabetes mellitus without complications (ICD-10) COPD (chronic obstructive pulmonary disease) ?J44.9 - Chronic obstructive pulmonary disease, unspecified (ICD-10) Surgical History S/P ORIF (open reduction internal fixation) fracture ?Z98.890 - Other specified postprocedural states (ICD-10) ?Z87.81 - Personal history of (healed) traumatic fracture (ICD-10) S/P CABG x 4 ?Z95.1 - Presence of aortocoronary bypass graft (ICD-10) Family History Brother Leukemia Mother Oral cancer Father Alzheimers disease Social History Narrative: 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 What is your current living situation?: I presently have a place to live Problems where you live: no known problems Problems where you live details: n/a In the past 12 months, utilities in danger of being shut off: no In past 12 months, lack of transportation kept you from medical appts, meetings, work, or getting things needed for daily living: no In the past 12 mos, have been you worried that your food would run out before you had money to buy more?: never true In the past 12 mos, the food you bought just didn't last and you didn't have money to buy more?: never true Smoking Status: Former smoker Do you use any of these nicotine containing products: None Second hand tobacco smoke exposure: No How often do you have a drink containing alcohol: 2-4 times a month How often do you have six or more drinks on one occasion: Never AUDIT-C Alcohol total score: 2 Non-prescribed substance use: denies use How often does anyone, including family, friends and others, physically hurt you : never How often does anyone, including family, friends and others, insult or talk down to you: never How often does anyone, including family, friends and others, threaten you with harm: never How often does anyone, including family, friends and others, scream or curse at you: never service: No Exam Narrative: Exam Narrative: Const: Well-nourished, Well-developed, in mild distress Eyes: PERRL, no conjunctival injection, and symmetrical lids HENT: Atraumatic external nose and ears. Moist mucous membranes. Neck: Symmetric, trachea midline, No thyromegaly. CVS: RRR, No murmurs or gallops. Peripheral pulses 2+ and equal in all extremities, palpable thrill felt at fistula site. No bleeding noted RESP: Unlabored respiratory effort. Clear to auscultation bilaterally. GI: Nontender/Nondistended, No rebound or guarding. MSK:Extremities w/o deformity, Normal Active ROM Skin: Warm, Dry. No rashes or lesions. Neuro: Normal Muscle tone, No focal neurological deficits. Psych: Awake, Alert, & Oriented x3. Appropriate mood and affect. Const: Vital Signs, click to edit/add: Vital Signs - 24 hr 07/01/24 17:12 Temperature 98.4 F Pulse Rate [Pulse Oximeter] 78 Respiratory Rate 18 Blood Pressure [Ri ght Upper Arm] 134/64 Pulse Oximetry 98 Oxygen Delivery Me thod Room Air Course Vital Signs Vital signs: Initial Vital Signs Temperature 98.4 F 07/01/24 17:12 Temperature Source Temporal Artery Scan 07/01/24 17:12 Pulse Rate 78 07/01/24 17:12 Respiratory Rate 18 07/01/24 17:12 Blood Pressure 134/64 07/01/24 17:12 Blood Pressure Mean 87 07/01/24 17:12 Pulse Oximetry 98 07/01/24 17:12 Oxygen Delivery Method Room Air 07/01/24 17:12 Vital Signs Temperature 98.4 F 07/01/24 17:12 Pulse Rate 78 07/01/24 17:12 Respiratory Rate 18 07/01/24 17:12 Blood Pressure 134/64 07/01/24 17:12 Pulse Oximetry 98 07/01/24 17:12 Oxygen Delivery Method Room Air 07/01/24 17:12 Temperature 98.4 F 07/01/24 17:12 Pulse Rate 78 07/01/24 17:12 Respiratory Rate 18 07/01/24 17:12 Blood Pressure 134/64 07/01/24 17:12 Pulse Oximetry 98 07/01/24 17:12 Oxygen Delivery Method Room Air 07/01/24 17:12 Medical Decision Making MDM Narrative Medical decision making narrative: Patient is a 4-year-old male presenting for concerns of a bleeding fistula. The patient still has stopped bleeding at this point he is otherwise doing well. Vital signs are within normal limits. A suture to stop the bleeding is not necessary at this time. He is safe for discharge. 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 Prescriptions: No Action insulin aspart U-100 [Novolog FlexPen U-100 Insulin] 100 unit/mL (3 mL) insulin pen 5 unit subcut TIDWM guaifenesin 100 mg/5 mL liquid 100 mg PO Q4H PRN (Reason: coughing) montelukast [Singulair] 10 mg tablet 10 mg PO HS nitroglycerin [Nitrostat] 0.4 mg tablet, sublingual 0.4 mg sublingual Q5M PRN Rx Instructions: do not exceed 3 doses per episode aspirin 81 mg capsule 81 mg PO DAILY loratadine [Claritin] 10 mg tablet 10 mg PO DAILY coenzyme Q10 [Co Q-10] 100 mg capsule 100 mg PO DAILY senna 8.6 mg capsule 8.6 - 17.2 mg PO BID acetaminophen [Tylenol Arthritis Pain] 650 mg tablet extended release 650 mg PO Q8H PRN insulin glargine [Lantus Solostar U-100 Insulin] 100 unit/mL (3 mL) insulin pen 18 unit subcut HS albuterol sulfate [Ventolin HFA] 90 mcg/actuation HFA aerosol inhaler 2 inh inhalation Q4H PRN pantoprazole 40 mg tablet,delayed release (DR/EC) 40 mg PO DAILY pravastatin 80 mg tablet 80 mg PO HS fluticasone propionate [24 Hour Allergy Relief] 50 mcg/actuation spray,suspension 1 spray intranasal DAILY PRN Rx Instructions: administer into each nostril cyclosporine [Restasis] 0.05 % dropperette 1 drp ophthalmic (eye) Q12H Dialyvite [phone] vz-jc-mgi-mg tablet 1 tab PO BID Rx Instructions: administer with a meal [id number]-zi-[id number]-qybbxpl-ast [MegaRed [place]-3 Krill Oil] 1,000-230-60 mg capsule 1 cap PO DAILY cholecalciferol (vitamin D3) 50 mcg (2,000 unit) capsule 50 mcg PO DAILY vitamin E 268 mg (400 unit) capsule 268 mg PO DAILY clopidogrel 75 mg tablet 75 mg PO DAILY Analgesic Mascot (m.salic-menth) 15-10 % cream 1 applic topical TID PRN diphenhydramine HCl [Aler-Cap] 25 mg capsule 25 mg PO Q4H PRN fluticasone propion-salmeterol [Wixela Inhub] 100-50 mcg/dose blister with device 1 inh inhalation BID hydrocortisone 2.5 % cream 1 applic topical BID PRN levothyroxine 175 mcg capsule 175 mcg PO DAILY magnesium hydroxide [Dulcolax (magnesium hydroxide)] 400 mg/5 mL suspension 30 ml PO DAILY PRN tiotropium bromide [Spiriva with HandiHaler] 18 mcg capsule, w/inhalation device 1 cap inhalation DAILY Rx Instructions: puncture 1 cap using device; one dose = 2 inhalations Follow Up/Referrals: Anna Marie Oglesby DO [Primary Care Provider] - Stand Alone Forms: MyHealth Info Instructions
--- OUTSIDE RECORDS SUMMARY | 2024-07-01 17:32 | XMS_ITS | CONTINUITY OF CARE DOCUMENT ---
Author Name User, QIE Address [address] [place] [address] Organization [facility] Address [address] [facility] [address] [place] [address] Phone [phone] Care Team Providers Care Needle Felt Making Machine Operator Name Role Phone User, QIE Unavailable Unavailable PROBLEMS Condition Status Date Provider Notes Organizati on CKD STAGE ESRD ON DIALYSIS GFR <15 active Genoveva Stephens , [address] [facility] [address] [facility] [address] [facility] VITAL SIGNS Date Observation Value Provider Organization blood pressure, diastolic 64 mm[Hg] Mili Bredemus , [address] [facility] blood pressure, systolic 142 mm[Hg] Mili Bredemus , [address] [facility] [place] blood pressure, site #1 Upper arm Mili Bredemus , [address] [facility] blood pressure, diastolic, right arm 64 mm[Hg] Mili Bredemus , [address] [facility] blood pressure, systolic, right arm 142 mm[Hg] Mili Bredemus , [address] [facility] respiratory rate E&M 22 /min Mili Bredemus , [address] [facility] pulse rate 73 /min Milinahun Sanchezemu s , [address] [facility] [place] temperature E&M 98.3 [degF] Mili brink , [address] [facility] Body Mass Index (Ratio) 31.68 kg/m2 Mili Pizano , [address] [facility] weight E&M 220 [lb_av] Mili Ibanez s , [address] [facility] height E&M 70 [in_i] Mili Ibanez s , [address] [facility] blood pressure, diastolic 72 mm[Hg] Angelica Oswald , [address] [facility] [address] [facility] [place] blood pressure, systolic 160 mm[Hg] Angelica Oswald , [address] [facility] [place] blood pressure, site #1 Upper arm Angelica Oswald , [address] [facility] blood pressure, diastolic, right arm 72 mm[Hg] Angelica [place] , [address] [facility] blood pressure, systolic, right arm 160 mm[Hg] Angelica Beckerather , [address] [facility] [address] [facility] respiratory rate E&M 16 /min Angelica mijares , [address] [facility] [address] [facility] pulse rate 83 /min Angelica Denson her , [address] [facility] temperature E&M 98.4 [degF] Angelica silva , [address] [facility] [address] [facility] Body Mass Index (Ratio) 32.26 kg/m2 Angelica Oswald , [address] [facility] [address] [facility] [address] [facility] weight E&M 224 [lb_av] Angelica boggs , [address] [place] [address] [address] [facility] height E&M 70 [in_i] Angelica Denson her , [address] [place] [address] [address] [facility] [place] blood pressure, diastolic 75 mm[Hg] Radha De Leon RN RN, [address] [place] [address] [address] [facility] [place] blood pressure, systolic 181 mm[Hg] Radha De Leon RN RN, [address] [place] [address] [address] [facility] [place] respiratory rate E&M 14 /min Radha solano RN RN, [address] [place] [address] [address] [facility] [place] pulse rate 58 /min Radha De Leon RN R N, [address] [place] [address] [address] [facility] [place] blood pressure, site #1 Upper arm Radha De Leon RN RN, [address] [place] [address] [address] [facility] [place] blood pressure, diastolic, right arm 75 mm[Hg] Radha De Leon RN RN, [address] [place] [address] [address] [facility] [place] blood pressure, systolic, right arm 181 mm[Hg] Radha De Leon RN RN, [address] [place] [address] [address] [facility] [place] temperature E&M 98.0 [degF] Radha De Leon R N RN, [address] [place] [address] [address] [facility] [place] Body Mass Index (Ratio) 31.97 kg/m2 Radha De Leon RN RN, [address] [place] [address] [address] [facility] [place] weight E&M 222 [lb_av] Radha De Leon RN R N, [address] [place] [address] [address] [facility] [place] height E&M 70 [in_i] Radha De Leon RN R N, [address] [place] [address] [address] [facility] [place] ALLERGIES Allergy Name Onset Date Reaction Criticality Status Provider Or ganization PRILOSEC OTC diarrhea High Criticality active Genoveva Stephens , [address] [place] [address] [address] [place] [address] [facility] REGLAN gynecomastia High Criticality active Genoveva Stephens [address] [place] [address] [facility] LISINOPRIL GI upset High Criticality active [facility] , [address] [facility] [address] [place] [address] [facility] LIPITOR High Criticality active Ra [facility] , [address] [facility] [address] [place] [address] [facility] RESULTS Date Observation Value Provider Organization Refer ence Range Interpretation Location blood glucose, finger stick 183 Mili Pizano , [address] [facility] [place] HISTORY OF MEDICATION USE Medication Instructions Status Dates Provider Indications Com ments Organization Protonix 40 mg tablet,delayed release (DR/EC) active Mili Pizano , [address] GALZIN 50 MG ORAL CAPSULE active Gen[address] [place] [address] [facility] CVS VITAMIN E 400 UNIT ORAL CAPSULE 1 daily active [address] [place] [address] [facility] VITAMIN D (ERGOCALCIFERO L) [address] UNIT ORAL CAPSULE 1 cap daily active [address] [place] [address] [facility] TYLENOL 8 HOUR 650 MG ORAL TABLET EXTENDED RELEASE PRN active [address] [place] [address] [facility] SYMBICORT 160-4.5 MCG/ACT INHALATION AEROSOL 2 puffs daily active [address] [place] [address] [facility] SPIRIVA HANDIHALER 18 MCG INHALATION CAPSULE 1 daily active [address] [place] [address] [facility] SINGULAIR 10 MG ORAL TABLET 1 daily active [address] [place] [address] [facility] CVS SENNA 8.6 MG ORAL TABLET 2 tabs in AM 2 tabs in PM daily active [address] [place] [address] [facility] PRAVACHOL 80 MG ORAL TABLET 1 daily active [address] [place] [address] [facility] NOVOLOG FLEXPEN 100 UNIT/ML SUBCUTANEOUS SOLUTION PEN-INJECTOR 3 times daily active [address] [place] [address] [facility] NITROSTAT 0.4 MG SUBLINGUAL TABLET SUBLINGUAL active [address] [place] [address] [facility] MEGARED OMEGA-3 KRILL OIL 500 MG ORAL CAPSULE 1 daily active [address] [place] [address] [facility] ALLERGY RELIEF 10 MG ORAL TABLET 1 daily active [address] [place] [address] [facility] LEVO-T 175 MCG ORAL TABLET 1 at night active [address] [place] [address] [facility] LANTUS 100 UNIT/ML SUBCUTANEOUS SOLUTION active [address] [place] [address] [facility] GAVISCON TABLET CHEWABLE PRN active [address] [place] [address] [facility] FLOVENT HFA 110 MCG/ACT INHALATION INHALER active [address] [place] [address] [facility] FLUNISOLIDE 25 MCG/ACT (0.025%) NASAL SOLUTION PRN active [address] [place] [address] [facility] CO Q 10 100 MG ORAL CAPSULE 1 daily active [address] [place] [address] [facility] DIALYVITE ORAL TABLET active [address] [place] [address] [facility] ASPIRIN ADULT LOW DOSE 81 MG ORAL TABLET DELAYED RELEASE 1 daily active [address] [facility] [address] [facility] ALBUTEROL SULFATE HFA 108 (90 BASE) MCG/ACT INHALATION AEROSOL SOLUTION 1-2 puffs 4 times daily active Genoveva Stephens , [address] [place] [address] [address] [facility] [address] [facility] SOCIAL HISTORY Date Observation Value Provider Organization 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, [address] [place] [address] [address] [facility] social history reviewed E&M reviewed - no changes required Mili Pizano , [address] [place] [address] [address] [facility] 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 Yayo Hooker MD, MD, [address] [place] [address] [address] [facility] social history reviewed E&M reviewed - no changes required Angelica Oswald , [address] [place] [address] [address] [facility] [address] [place] [address] [facility] 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 Yayo Hooker MD, MD, [address] [place] [address] [address] [facility] social history reviewed E&M reviewed - no changes required Radha De Leon RN RN, [address] [place] [address] [facility] [place] INSURANCE PROVIDERS Payer name Policy type / Coverage type [place] red constitution party ID MEDICARE [id number] COMMERCIAL INSURANCE [id number] 5 HISTORY OF PROCEDURES Procedure Date Procedure Name Provider Procedure Notes Status Organization INJECTION FENTANYL CITRATE 100MCG Yayo Hooker MD, MD, [address] [facility] [address] completed [facility] INFUS NORMAL SALINE SOLUTION 250 CC Yayo Hooker MD, MD, [address] [facility] [address] completed [facility] INJECTION MIDAZOLAM HCL PER 1 MG Yayo Hooker MD, MD, [address] [facility] [address] completed [facility] Wire Yayo Hooker MD, MD, [address] [facility] [address] completed [facility] Balloon Yayo Hooker MD, MD, [address] [facility] [address] completed [facility] Sheath Yayo Hooker MD, MD, [address] [facility] [address] completed [facility] Omnipaque 300 10ml (Medicare [id number]) Yayo Hooker MD, MD, [address] [facility] [address] 25 completed [facility] Angioplasty within including RS&I Yayo Hooker MD, MD, [address] [place] [address] completed [facility] Fistulagram, Dialysis Yayo Hooker MD, MD, [address] [facility] [address] completed [facility] Antibiotic-No Order Yayo Hooker MD, MD, [address] [facility] [address] completed [facility] Quailty Measures all negative Yayo Hooker MD, MD, [address] [facility] [address] completed [facility] SNOMED-CT:HISTORICAL PNEUMOCOCCAL VACCINATION Yayo Hooker MD, MD, [address] [facility] [address] completed [facility] SNOMED-CT:PATIENT ENCOUNTER Yayo Hooker MD, MD, [address] [facility] [address] completed [facility] SNOMED-CT: [id number] Current Medications Documented aYyo Hooker MD, MD, [address] [facility] [address] completed [facility] INFUS NORMAL SALINE SOLUTION 250 CC Yayo Hooker MD, MD, [address] [facility] [address] completed [facility] INJECTION MIDAZOLAM HCL PER 1 MG Yayo Hooker MD, MD, [address] [facility] [address] completed [facility] Wire Yayo Hooker MD, MD, [address] [facility] [address] completed [facility] Balloon Yayo Hooker MD, MD, [address] [facility] [address] completed [facility] Sheath Yayo Hooker MD, MD, [address] [facility] [address] completed [facility] Omnipaque-Visipaque Yayo Hooker MD, MD, [address] [facility] [address] 20 ml completed [facility] Angioplasty within including RS&I Yayo Hooker MD, MD, [address] [facility] [address] completed [facility] Fistulagram, Dialysis Yayo Hooker MD, MD, [address] [place] [address] completed [facility] Antibiotic-No Order Yayo Hooker MD, MD, [address] [facility] [address] completed [facility] Quailty Measures all negative Yayo Hooker MD, MD, [address] [facility] [address] completed [facility] SNOMED-CT:HISTORICAL PNEUMOCOCCAL VACCINATION Yayo Hooker MD, MD, [address] [facility] [address] completed [facility] SNOMED-CT:PATIENT ENCOUNTER Yayo Hooker MD, MD, [address] [facility] [address] completed [facility] SNOMED-CT: [id number] Current Medications Documented Yayo Hooker MD, MD, [address] [facility] [address] completed [facility] INFUS NORMAL SALINE SOLUTION 250 CC Yayo Hooker MD, MD, [address] [facility] [address] completed [facility] INJECTION MIDAZOLAM HCL PER 1 MG Yayo Hooker MD, MD, [address] [facility] [address] completed [facility] INJECTION FENTANYL CITRATE 100MCG Yayo Hooker MD, MD, [address] [facility] [address] completed [facility] Wire Yayo Hooker MD, MD, [address] [facility] [address] completed [facility] Balloon Yayo Hooker MD, MD, [address] [facility] [address] completed [facility] Sheath Yayo Hooker MD, MD, [address] [place] [address] completed [facility] Omnipaque-Visipaque Yayo Hooker MD, MD, [address] [facility] [address] 20 ml completed [facility] Angioplasty within including RS&I Yayo Hooker MD, MD, [address] [facility] [address] completed [facility] Fistulagram, Dialysis Yayo Hooker MD, MD, [address] [place] [address] completed [facility] Antibiotic-No Order Yayo Hooker MD, MD, [address] [facility] [address] completed [facility] Quailty Measures all negative Yayo Hooker MD, MD, [address] [facility] [address] completed [facility] SNOMED-CT:HISTORICAL PNEUMOCOCCAL VACCINATION Yayo Hooker MD, MD, [address] [place] [address] completed [facility] SNOMED-CT:PATIENT ENCOUNTER Yayo Hooker MD, MD, [address] [facility] [address] completed [facility] [place]
--- OUTSIDE RECORDS SUMMARY | 2024-07-01 17:33 | XMS_ITS | Encounter Summary ---
Author Organization [facility] Address [address] [place] [address] Care Team Providers Care Associate Team Physician Name Role Phone Unavailable Primary Care Provider Unavailabl e Encounter Details Date Type Department Care Team (Late st Contact Info) Description 06/20/2024 Orders Only [facility] [address] [facility] [address] [place] [address] Darren Youssef MD [address] [place] [address] Social History Tobacco Use Types [...] [place] Lab Results (06/20/2024) spKt/V Gotch 1.43 [facility] PCR 75.47 [facility] spKt/V (Daugirdas II) 1.43 [facility] eKt/V (Tattersall) 1.23 [facility] nPCR_HD 1.04 [facility] eKt/V Gotch 1.21 [facility] eNPCR 0.96 [facility] eKdrt/V 1.21 [facility] WSTDKT/V 2.4 [facility] 06/20/2024 06/20/2024 [place] Ordering Provider LAB BLOOD ORDERABLES Final Result Performing Organization Address [facility] Co de Phone Number [facility] Contact Performing lab Unknown, [place] * HD KINETICS (06/20/2024) % Urea Reduction 71 65 - 80 % [facility] 06/20/2024 06/21/2024 10: 11 AM WEDDING COORDINATOR Narrative [facility] - 06/21/2024 Unless otherwise specified, test(s) performed at: [facility], [address] [place] [address], [place] [address] LENS EDGE GRINDER MACHINE: Rojas Kirkland M.D., Ph.D For any questions, please call customer service at FREQUENCY:OTHER Resulting Agency Comment Specimen source: Plasma Darren Youssef MD LAB BLOOD ORDERABLES Final Re sult Performing Organization Address [facility] de Phone Number [facility] See order comments or contact performing lab Unknown, [place] * (ABNORMAL) [facility] (06/20/2024) Pathologist [facility] BUN 76(H) 6 - 19 mg/dL [facility] 06/20/2024 06/21/2024 1:4 4 PM WEDDING COORDINATOR Narrative [facility] - 06/21/2024 Unless otherwise specified, test(s) performed at: [facility], [address] [place] [address], [place] [address] LENS EDGE GRINDER MACHINE: Rojas Kirkland M.D., Ph.D For any questions, please call customer service at FREQUENCY:OTHER Resulting Agency Comment Specimen source: Serum Darren Youssef MD LAB BLOOD ORDERABLES Final Re sult Performing Organization Address [facility] de Phone Number [facility] See order comments or contact performing lab Unknown, [place] * (ABNORMAL) POST CHEMISTRY (06/20/2024) BUN Post Dialysis 22(H) 6 - 19 mg/dL [facility] 06/20/2024 06/21/2024 10: 11 AM WEDDING COORDINATOR Narrative [facility] - 06/21/2024 Unless otherwise specified, test(s) performed at: [facility], [address] [place] [address], [place] [address] LENS EDGE GRINDER MACHINE: Rojas Kirkland M.D., Ph.D For any questions, please call customer service at FREQUENCY:OTHER Resulting Agency Comment Specimen source: Plasma us Darren Youssef MD LAB BLOOD ORDERABLES Final Re sult [facility] See order comments or contact performing lab Unknown, [place] documented in this encounter Visit Diagnoses Not on filedocumented in this encounter
--- OUTSIDE RECORDS SUMMARY | 2024-07-01 17:34 | XMS_ITS | Encounter Summary ---
Author Organization [facility] Address [address] [place] [address] Care Team Providers Care Quarter Seamer Name Role Phone Unavailable Primary Care Provider Unavailabl e Encounter Details Date Type Department Care Team (Late st Contact Info) Description 06/15/2024 Orders Only [facility] [address] [facility] [address] [place] [address] Darren Youssef MD [address] [place] [address] Social History Tobacco Use Types [...] [place] Lab Results (06/15/2024) spKt/V Gotch 1.20 [facility] nPCR_HD 1.13 [facility] eKt/V Gotch 1.02 [facility] eKt/V (Tattersall) 1.02 [facility] eKdrt/V 1.02 [facility] WSTDKT/V 2.1 [facility] eNPCR 1.04 [facility] spKt/V (Daugirdas II) 1.19 [facility] PCR 79.26 [facility] 06/15/2024 06/15/2024 [facility] Ordering Provider LAB BLOOD ORDERABLES Final Result [...] [facility] 06/15/2024 06/16/2024 12: 18 PM FORESTRY FOREMAN Narrative [facility] - 06/16/2024 Unless otherwise specified, test(s) performed at: [facility], [address] [place] [address], [place] [address] WALLPAPERER: Rojas Kirkland M.D., Ph.D For any questions, please call customer service at FREQUENCY:MONTHLY Resulting Agency Comment Specimen source: Blood Darren Youssef MD LAB BLOOD ORDERABLES Final Re sult Performing Organization Address [facility] de Phone Number [employer] [facility] See order comments or contact performing lab Unknown, [place] * HD KINETICS (06/15/2024) % Urea Reduction 65 65 - 80 % [facility] 06/15/2024 06/16/2024 10: 29 AM FORESTRY FOREMAN Narrative Resulting Agency Comment Specimen source: Plasma Darren Youssef MD LAB BLOOD ORDERABLES Final Re sult Performing Organization Address [facility] Phone Number [employer] [facility] See order comments or contact performing lab Unknown, [place] * (ABNORMAL) POST CHEMISTRY (06/15/2024) BUN Post Dialysis 27(H) 6 - 19 mg/dL [facility] 06/15/2024 06/16/2024 10: 29 AM FORESTRY FOREMAN Narrative [facility] - 06/16/2024 Unless otherwise specified, test(s) performed at: [facility], [address] [place] [address], [place] [address] WALLPAPERER: Rojas Kirkland M.D., Ph.D For any questions, please call customer service at FREQUENCY:MONTHLY Resulting Agency Comment Specimen source: Plasma Darren Youssef MD LAB BLOOD ORDERABLES Final Re sult Performing Organization Address [facility] de Phone Number [facility] See order comments or contact performing [...] [facility] 06/15/2024 06/16/2024 9:2 4 AM FORESTRY FOREMAN Narrative [facility] 06[facility]16/2024 Unless otherwise specified, test(s) performed at: [facility] [place] [address] WALLPAPERER: Rojas Kirkland M.D., Ph.D For any questions, please call customer service at FREQUENCY:MONTHLY Resulting Agency Comment Specimen source: Serum us Darren Youssef MD LAB BLOOD ORDERABLES Final Re sult [facility] [employer] [facility] See order comments or contact performing lab Unknown, [place] * IMMUNO CHEMISTRY (06/15/2024) Hep B Surface Ag Negative Negative [facility] 06/15/2024 06/16/2024 10: 07 AM FORESTRY FOREMAN Narrative [facility] - 06/16/2024 Unless otherwise specified, test(s) performed at: [facility], [address] [place] [address], [place] [address] WALLPAPERER: Rojas Kirkland M.D., Ph.D For any questions, please call customer service at FREQUENCY:MONTHLY Resulting Agency Comment Specimen source: Plasma us Darren Youssef MD LAB BLOOD ORDERABLES Final Re sult [facility] See order comments or contact performing lab Unknown, [place] documented in this encounter Visit Diagnoses Not on filedocumented in this encounter
--- OUTSIDE RECORDS SUMMARY | 2024-07-01 17:34 | XMS_ITS | Encounter Summary ---
Author Organization [facility] Address [address] [place] [address] Care Team Providers Care Branch Lending Officer Name Role Phone Unavailable Primary Care Provider Unavailabl e Encounter Details Date Type Department Care Team (Late st Contact Info) Description 05/09/2024 Treatment [facility] [address] [place] [address] Blanca Simon, MACHINIST INSTRUCTOR-BROADCASTER [address] [place] [address] Social History Tobacco Use Types Packs/Day Years Used Date Smoking Tobacco: Never Assessed Sex and Gender Information Value Date Recorded Sex Assigned at Not on file Legal Sex Male 7:06 PM EDT Gender Identity Not on file Sexual Orientation Not on file documented as of this encounter Miscellaneous Notes * Dialysis Note - Blanca Simon MACHINIST INSTRUCTOR-BROADCASTER - 05/09/2024 12:00 AM GIFTED TEACHER Patient: Korey Mackay : 1940 Note Type: Dialysis Rounds-Comp Service Date: 05/09/2024 This patient was personally seen for a complete visit as part of routine monthly dialysis care for end stage renal disease. Attending Coating Mixer Supervisor: ANA TRAN Dialysis Location: [facility] Schedule: Shift: 2 OVERVIEW COMMENTS: 05/09/2024: Patient on dialysis. Spoke with at chairside. She reports he continues to have fatigue and poor appetite. BP stable. 04/22/24: Re-started Korsuva for itching. He is pleased about this but nothing else. Surgery cancelled by cardiology, unsure if will go to [place], poor energy (chronic), poor appetite (chronic), and [...] next Tu. HOME MEDICATIONS Medications reviewed. Current [facility] Outpatient Medications albuterol sulfate 90 mcg/actuation HFA aerosol inhaler Inhale 2 puff using inhaler every four hours as needed. azelastine 137 mcg (0.1 %) spray,non-aerosol [1 spray twice a day] Milo Low Dose Aspirin 81 mg tablet,delayed release (DR/EC) Take 1 tablet by mouth once a day. Co Q-10 100 mg capsule Take 1 capsule by mouth once a day. Dialyvite [id number] vj-mm-pjt-mg tablet Take 1 tablet by mouth every evening with meals. floradix [iron and herbs liquid supplement to improve appetite and energy] hydrocortisone 2.5% cream Apply to affected area twice a day as needed. Lantus U-100 Insulin 100 unit/mL solution Inject 18 unit subcutaneously every evening. Levo-T 175 mcg tablet Take 1 tablet by mouth once a day. MegaRed [place]-3 Krill Oil 1,000-230-60 mg capsule Take 1 [...] 98.2*F Current Dialysis Vitals BP Sit: 134/61 AP/ADVISOR TO COMMAND IN COMBAT: 152/190 Pulse: 69 TREATMENT MEDICATIONS ORDERS Iron [...] targets not met. Hemoglobin not at target. MITSY adjusted per protocol. Continue maintenance iron. Hemoglobin [...]
--- OUTSIDE RECORDS SUMMARY | 2024-07-01 17:34 | XMS_ITS | Encounter Summary ---
Author Organization [facility] Address [address] [place] [address] Care Team Providers Care Automatic Machine Attendant Name Role Phone Unavailable Primary Care Provider Unavailabl e Encounter Details Date Type Department Care Team (Late st Contact Info) Description 06/29/2024 Orders Only [facility] [place] [address] [facility] [address] [place] [address] Darren Youssef MD [address] [place] [address] Social History Tobacco Use Types [...] (06/29/2024) Hemoglobin 8.2(L) 14.0 - 18.0 g/dL [facility] Hemoglobin x 3 24.6(L) 42.0 - 54.0 % [facility] 06/29/2024 06/30/2024 2:1 7 AM STEEL CUTTER Narrative BERENICE - 06/30/2024 Unless otherwise specified, test(s) performed at: [facility], [address] [place] [address], [place] [id number] HEAD OF ART: Rojas Kirkland M.D., Ph.D For any questions, please call customer service at FREQUENCY:OTHER Resulting Agency Comment Specimen source: Blood us Darren Youssef MD LAB BLOOD ORDERABLES Final Re sult [facility] See order comments or contact performing lab Unknown, [place] documented in this encounter Visit Diagnoses Not on filedocumented in this encounter
--- OUTSIDE RECORDS SUMMARY | 2024-07-01 17:34 | XMS_ITS | Continuity of Care Document ---
Author Organization [facility] Address [address] [address] [place] [address] Phone Care Team Providers Care Manager Of Distribution Name Role Phone Unavailable Unavailable Unavailable Advance Directives Directive Yes / No Effective Date File Name No Information Encounters Encounter Description Practice Location Reason(s) For Visit Diagnoses Date Provider Providers Copied on Encounter [facility], [address] [address], [place], [place], [id number], [place] tel:[phone] [facility] No Information Aug-201 8 No [...]
--- OUTSIDE RECORDS SUMMARY | 2024-07-01 17:34 | XMS_ITS | Encounter Summary ---
Author Organization [facility] Address [address] [place] [address] Care Team Providers Care Principal Research Economist Name Role Phone Unavailable Primary Care Provider Unavailabl e Encounter Details Date Type Department Care Team (Late st Contact Info) Description 06/20/2024 Treatment [facility] [place] [address] [place] [address] Darren Tran MD [address] [place] [address] Social History Tobacco Use Types [...] care for end stage renal disease. Attending Financial Institution Vice President: DARREN TRAN Dialysis Location: [facility] Schedule: Shift: 2 OVERVIEW COMMENTS: 06/20/24 [...] much better. HOME MEDICATIONS Medications reviewed. Current [facility] Outpatient Medications albuterol sulfate 90 mcg/actuation [...] capsule by mouth once a day. Dialyvite 3-301-474-50 ov-kd-bze-mg tablet Take 1 tablet by mouth every [...] 97.4*F Current Dialysis Vitals BP Sit: 151/69 AP/LEAFLET DISTRIBUTOR: -160/220 Pulse: 69 TREATMENT MEDICATIONS ORDERS Iron [...]
--- OUTSIDE RECORDS SUMMARY | 2024-07-01 17:34 | XMS_ITS | Encounter Summary ---
Author Organization [facility] Address [address] [facility] [address] [place] [address] Care Team Providers Care Sales Special Agent Name Role Phone Unavailable Primary Care Provider Unavailabl e Encounter Details Date Type Department Care Team (Late st Contact Info) Description 05/18/2024 Orders Only [facility] [place] [address] [facility] [address] [place] [address] Darren Youssef MD [address] [place] [address] Social History Tobacco Use Types [...] (05/18/2024) Hemoglobin 8.3(L) 14.0 - 18.0 g/dL [facility] Hemoglobin x 3 24.9(L) 42.0 - 54.0 % [facility] 05/18/2024 05/19/2024 4:1 5 AM HAND FILER BALANCE WHEEL Narrative [place] - 05/19/2024 Unless otherwise specified, test(s) performed at: [facility], [address] [place] [address], [place] [address] PAN GREASER: Rojas Kirkland M.D., Ph.D For any questions, please call customer service at FREQUENCY:OTHER Resulting Agency Comment Specimen source: Blood us Darren Youssef MD LAB BLOOD ORDERABLES Final Re sult [facility] See order comments or contact performing lab Unknown, [place] documented in this encounter Visit Diagnoses Not on filedocumented in this encounter
--- OUTSIDE RECORDS SUMMARY | 2024-07-01 17:34 | XMS_ITS | Encounter Summary ---
Author Organization [facility] Address [address] [place] [address] Care Team Providers Care Heater Helper Name Role Phone Unavailable Primary Care Provider Unavailabl e Encounter Details Date Type Department Care Team (Late st Contact Info) Description 06/22/2024 Orders Only [facility] [place] [address] [facility] [address] [place] [address] Darren Youssef MD [address] [place] [address] Social History Tobacco Use Types [...] (06/22/2024) Hemoglobin 8.0(L) 14.0 - 18.0 g/dL [facility] Hemoglobin x 3 24.0(L) 42.0 - 54.0 % [facility] 06/22/2024 06/23/2024 10: 35 AM BLOW MOLD OPERATOR Narrative BERENICE - 06/23/2024 Unless otherwise specified, test(s) performed at: [facility], [address] [place] [address], [place] [address] SALES PROMOTION OFFICER: Rojas Kirkland M.D., Ph.D For any questions, please call customer service at FREQUENCY:OTHER Resulting Agency Comment Specimen source: Blood us Darren Youssef MD LAB BLOOD ORDERABLES Final Re sult [facility] See order comments or contact performing lab Unknown, [place] documented in this encounter Visit Diagnoses Not on filedocumented in this encounter
--- OUTSIDE RECORDS SUMMARY | 2024-07-01 17:34 | XMS_ITS | Encounter Summary ---
Author Organization [facility] Address [address] [facility] [facility] [place] [address] Care Team Providers Care Pricing Supervisor Name Role Phone Unavailable Primary Care Provider Unavailabl e Encounter Details Date Type Department Care Team (Late st Contact Info) Description 06/10/2024 Orders Only [facility] [place] [address] [facility] [address] [place] [address] Darren Youssef MD [address] [place] [address] Social History Tobacco Use Types [...] (06/10/2024) Hemoglobin 8.2(L) 14.0 - 18.0 g/dL [facility] Hemoglobin x 3 24.6(L) 42.0 - 54.0 % [facility] 06/10/2024 06/13/2024 10: 40 AM PLOW MECHANIC Narrative BERENICE - 06/13/2024 Unless otherwise specified, test(s) performed at: [facility], [address] [place] [address], [place] [address] BAG MACHINE HELPER: Rojas Kirkland M.D., Ph.D For any questions, please call customer service at FREQUENCY:OTHER Resulting Agency Comment Specimen source: Blood us Draren Youssef MD LAB BLOOD ORDERABLES Final Re sult [facility] See order comments or contact performing lab Unknown, [place] documented in this encounter Visit Diagnoses Not on filedocumented in this encounter
--- OUTSIDE RECORDS SUMMARY | 2024-07-01 17:34 | XMS_ITS | Clinical Summary ---
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 Active Vit B Cplx #98-HQ-F-Biot-Zi nc (Dialyvite) [phone] hv-es-dgv-mg tablet Take 1 Tablet by mouth once daily. 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 U/S scheduled prior. ) 06/28/2024 3:00 PM NURSE TRANSPLANT - 06/28/2024 11:59 PM NURSE TRANSPLANT Hospital Encounter [facility] [address] [place] [address] Sneha De La Cruz MD Leistner, Joseph S, R.T. (ARRT) Bilateral carotid artery stenosis 06/28/2024 11:10 AM NURSE TRANSPLANT Office Visit [facility] [address] [place] [address] Zeny Medley MD Musculoskeletal Problem (R shoulder/neck pain x 1 month); Leg Pain/problem (Upper thigh pain since angiogram ) 06/28/2024 Travel 06/23/2024 1:00 PM NURSE TRANSPLANT Home Care Visit [facility] [address] [place] [address] Michelle Garnica RN SN - OASIS DISCHARGE 06/23/2024 9:45 AM NURSE TRANSPLANT Office Visit [facility] [place] [address] [place] [phone] Braulio Philippe DPM Post-op (Left foot, DOS 06/05/24, 2 week post op) 06/23/2024 Travel 06/20/2024 Telephone [facility] [address] [place] [address] [address] [place] [address] Pankaj Brownlee MD Medication Management (SPIRIVA) 06/16/2024 2:55 PM NURSE TRANSPLANT Office Visit [facility] [address] [place] [address] Braden Wilder MD Hospital F/U ([place], 05/25/2024 - 06/08/2024, pneumonia ) 06/16/2024 Travel 06/14/2024 1:00 PM NURSE TRANSPLANT Home Care Visit [facility] [address] [place] [address] Michelle Garnica, FRANCIA SN - HOME VISIT 06/13/2024 3:45 AM NURSE TRANSPLANT Home Care Visit [facility] [address] [place] [address] Kristie Perera, FRANCIA SN - WOUND/OSTOMY CHART CONSULT 06/11/2024 11:00 AM NURSE TRANSPLANT Home Care Visit [facility] [address] [place] [address] Kelsy Yi, FRANCIA SN - OASIS START OF CARE 06/11/2024 Telephone [facility] [address] [place] [address] Kelsy Yi, parole director (Need ongoing orders for home health) 06/11/2024 Plan of Care Documentation [facility] [address] [place] [phone] 06/09/2024 Home Care Visit [facility] [address] [place] [phone] Danitza Strange, RN CARE COORDINATION 06/09/2024 Patient Outreach [facility] [address] [facility] [place] [address] Sharri Osei, FRANCIA Hospital /U; Primary RN Care Management (LEOBARDO Toscano) 06/07/2024 Travel 06/05/2024 7:20 AM NURSE TRANSPLANT - 06/05/2024 8:31 AM NURSE TRANSPLANT Surgery [facility] [address] [place] [address] Phillip Hutton DPM LEFT PARTIAL HALLUX AMPUTATION 06/05/2024 7:12 AM NURSE TRANSPLANT Anesthesia Event [facility] [address] [place] [address] Magalis John MD Schumacher, Donna Mae Brockman, JUDIE 06/04/2024 Orders Only [facility] [address] [place] [phone] StElier love PA <No scans attached> 06/04/2024 Orders Only [facility] [address] [place] [phone] StrElier PA <No scans attached> 06/03/2024 1:41 PM NURSE TRANSPLANT Anesthesia Event [facility] [address] [place] [address] Dominguez Gomez MD Schulte, Whitney R, COKE BURNER 06/03/2024 Travel 05/31/2024 Travel 05/25/2024 4:55 AM NURSE TRANSPLANT - 06/08/2024 2:56 PM NURSE TRANSPLANT Hospital Encounter [facility] [address] [place] [address] [facility] Hospitalist Sheyla Wiley MD Thielman, DO German Aggarwal, MD Avril Anderson, MD Sergio Andrea, Phillip Wall DO 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); Hypotension, unspecified hypotension type Discharge Disposition: Home Health 05/25/2024 Travel 05/19/2024 1:00 PM NURSE TRANSPLANT Office Visit [facility] [address] [place] [address] Trey Carlson MD Wound Check (on the bottom- has had for about 6 weeks/Has been using butt cream bacitracin and other otc creams ) 05/19/2024 Travel 05/16/2024 Refill [facility] [address] [place] [address] Anna Marie Oglesby, Refill Request (clopidogreL (Plavix) 75 mg table//) 04/29/2024 Telephone [facility] [address] [place] [address] [place] [address] Arnie Jin MD Concerns 04/19/2024 10:30 AM NURSE TRANSPLANT Office Visit [facility] [address] [place] [phone] Arnie Jin MD Follow Up (Surgery canceled [...] on file Legal Sex Male 5:26 AM NURSE TRANSPLANT Gender Identity Not on file Sexual Orientation Not on file Occupation Industry Job Start Date Job End Date retired Not on file Not on file Not on file Obstetrics History Last Filed Vital Signs Vital Sign Reading Time Taken Comments Blood Pressure 136/66 06/28/2024 3:44 PM NURSE TRANSPLANT Pulse 70 06/28/2024 3:44 PM NURSE TRANSPLANT Temperature 36.9 C (98.4 F) 06/23/2024 12:55 PM NURSE TRANSPLANT Respiratory Rate 18 06/23/2024 12:55 PM NURSE TRANSPLANT Oxygen Saturation 98% 06/28/2024 3:44 PM NURSE TRANSPLANT Inhaled Oxygen Concentration - - Weight 86.8 kg (191 lb 6.4 oz) 06/16/2024 2:48 P M NURSE TRANSPLANT Height 182.9 cm (6') 06/11/2024 11:20 AM NURSE TRANSPLANT Body Mass Index 25.96 06/11/2024 11:20 AM NURSE TRANSPLANT Plan of Treatment Upcoming Encounters Date Type Department Care Team (Late st Contact Info) Description 07/07/2024 9:30 AM NURSE TRANSPLANT Office Visit [facility] [place] [address] [facility] [address] [place] [address] Braulio Philippe DPM [address] [place] [address] 07/19/2024 11:00 AM NURSE TRANSPLANT Office Visit [facility] [address] [place] [address] Anna Marie Oglesby, DO [address] [place] [address] 07/20/2024 2:30 PM NURSE TRANSPLANT Office Visit [facility] [address] [facility] [address] [place] [phone] Trang Monroy MBBS [address] [place] [address] 07/21/2024 1:00 PM NURSE TRANSPLANT Appointment [facility] [address] [place] [address] 07/21/2024 1:45 PM NURSE TRANSPLANT Appointment [facility] [address] [place] [address] 10/14/2024 Cardiac Device Check [facility] [phone] Health Maintenance Due Date Last Done Comments [...] history exists Medical Devices Implanted Type Area Tinning Machine Set Up Operator Device Identifier Shelf Expiration Date Model / Serial / Lot Screw Sm Joint 3.5x80mm Os Slf Tppng Bob - [id number] Implanted:Qty: 1 on 04/15/2015 by Rj Bui MD at [facility] Left: Leg [employer] [id number]# / / Screw Sm Joint 4x85mm [employer] Lock Slf Tppng [address] - [id number] Implanted:Qty: 1 on 04/15/2015 by Rj Bui MD at [facility] Left: Leg [employer] [id number]# / / Screw Sm Joint 3.5x75mm Os Slf Tppng Bob - [id number] Implanted:Qty: 1 on 04/15/2015 by Rj Bui MD at [facility] Left: Leg [employer] [id number]# / / Screw Sm Joint 3.5x85mm Os Slf Tppng Bob - [id number] Implanted:Qty: 1 on 04/15/2015 by Rj Bui MD at [facility] Left: Leg [employer] [id number]# / / Plate Tib Lt 10 Hole [employer] Prox Lateral - [id number] Implanted:Qty: 1 on 04/15/2015 by Rj Bui MD at [facility] Left: Leg [employer] [id number]# / / Screw Sm Joint 3.5x28mm Os Slf Tppng Bob - [id number] Implanted:Qty: 1 on 04/15/2015 by Rj Bui MD at [facility] Left: Leg [employer] [id number]# / / Screw Sm Joint 3.5x30mm Os Slf Tppng Bob - [id number] Implanted:Qty: 1 on 04/15/2015 by Rj Bui MD at [facility] Left: Leg [employer] [id number]# / / Screw Sm Joint 3.5x32mm Os Slf Tppng Bob - [id number] Implanted:Qty: 1 on 04/15/2015 by Rj Bui MD at [facility] Left: Leg [employer] [id number]# / / Screw Sm Joint 4x26mm [employer] Lock Slf Tppng [address] - [id number] Implanted:Qty: 1 on 04/15/2015 by Rj Bui MD at [facility] Left: Leg [employer] [id number]# / / Explanted Type Area Tinning Machine Set Up Operator Device Identifier Shelf Expiration Date Model / Serial / Lot K-Wire [place] 10pk - [id number] Explanted:Qty: 2 on 04/15/2015 at [facility] Left: Leg [employer] [id number]# / / Procedures Procedure Name Priority Date/Time Associated Diagnosis Comments US CAROTID DUPLEX BILATERAL Routine 06/28/2024 3:35 PM NURSE TRANSPLANT Bilateral carotid artery stenosis GLUCOSE METER Timed 06/08/2024 8:11 AM NURSE TRANSPLANT SCAN-CARDIAC STRIP 06/08/2024 12 :57 AM NURSE TRANSPLANT GLUCOSE METER Timed 06/07/2024 9:02 PM NURSE TRANSPLANT SCAN-CARDIAC STRIP 06/07/2024 4: 16 PM NURSE TRANSPLANT PLATELET COUNT Today 06/07/2024 10:53 AM NURSE TRANSPLANT BASIC METABOLIC PANEL Early AM 06/07/2024 10:53 AM NURSE TRANSPLANT SCAN-CARDIAC STRIP 06/07/2024 10 :39 AM NURSE TRANSPLANT GLUCOSE METER Timed 06/07/2024 7:58 AM NURSE TRANSPLANT GLUCOSE METER Timed 06/06/2024 9:30 PM NURSE TRANSPLANT GLUCOSE METER Timed 06/06/2024 5:06 PM NURSE TRANSPLANT SCAN-CARDIAC STRIP 06/06/2024 4: 02 PM NURSE TRANSPLANT GLUCOSE METER Timed 06/06/2024 12:14 PM NURSE TRANSPLANT GLUCOSE METER Timed 06/06/2024 8:20 AM NURSE TRANSPLANT SCAN-CARDIAC STRIP 06/05/2024 4: 51 PM NURSE TRANSPLANT GLUCOSE METER Timed 06/05/2024 4:[address] HEAD BRAIN WO STAT 06/05/2024 4:00 PM NURSE TRANSPLANT SCAN-CARDIAC STRIP 06/05/2024 2: 52 PM NURSE TRANSPLANT SCAN-CARDIAC STRIP 06/05/2024 2: 52 PM NURSE TRANSPLANT XR FOOT 3 VIEWS LEFT PORTABLE Routine 06/05/2024 8:56 AM NURSE TRANSPLANT TISSUE CULTURE, STAIN (AEROBIC) Today 06/05/2024 7:42 AM NURSE TRANSPLANT ANAEROBIC CULTURE Today 06/05/2024 7:4 2 AM NURSE TRANSPLANT PATH TISSUE EXAM Today 06/05/2024 7:40 AM NURSE TRANSPLANT GLUCOSE METER Timed 06/05/2024 7:11 AM NURSE TRANSPLANT AMPUTATION TOE 06/05/2024 7:02 AM NURSE TRANSPLANT LEFT HALLUX INFECTION Case Notes SAGITTAL SAW GLUCOSE METER Timed 06/04/2024 10:57 PM NURSE TRANSPLANT SCAN-CARDIAC STRIP 06/04/2024 8: 40 PM NURSE TRANSPLANT SCAN-CARDIAC STRIP 06/04/2024 8: 40 PM NURSE TRANSPLANT GLUCOSE METER Timed 06/04/2024 4:52 PM NURSE TRANSPLANT BASIC METABOLIC PANEL Today 06/04/2024 9:54 AM NURSE TRANSPLANT GLUCOSE METER Timed 06/04/2024 8:37 AM NURSE TRANSPLANT SCAN-CARDIAC STRIP 06/04/2024 8: 15 AM NURSE TRANSPLANT SCAN-CARDIAC STRIP 06/04/2024 2: 25 AM NURSE TRANSPLANT HEMOGLOBIN STAT 06/03/2024 8:05 PM NURSE TRANSPLANT BASIC METABOLIC PANEL Today 06/03/2024 8:05 PM NURSE TRANSPLANT GLUCOSE METER Timed 06/03/2024 7:36 PM NURSE TRANSPLANT HCHG ACTIVATED CLOTTING TM CV Timed 06/03/2024 3:09 PM NURSE TRANSPLANT HCHG ACTIVATED CLOTTING TM CV Timed 06/03/2024 2:38 PM NURSE TRANSPLANT GLUCOSE METER Timed 06/03/2024 12:30 PM NURSE TRANSPLANT CBC W PLT NO DIFF Early AM 06/03/2024 9:5 9 AM NURSE TRANSPLANT SCAN-CARDIAC STRIP 06/03/2024 9: 43 AM NURSE TRANSPLANT GLUCOSE METER Timed 06/03/2024 8:12 AM NURSE TRANSPLANT GLUCOSE METER Timed 06/02/2024 9:05 PM NURSE TRANSPLANT IR PICC LINE Routine 06/02/2024 3:26 PM NURSE TRANSPLANT GLUCOSE METER Timed 06/02/2024 1:39 PM NURSE TRANSPLANT MR FOOT LEFT WO Routine 06/02/2024 11:30 AM NURSE TRANSPLANT SCAN-CARDIAC STRIP 06/02/2024 9: 44 AM NURSE TRANSPLANT GLUCOSE METER Timed 06/02/2024 7:59 AM NURSE TRANSPLANT GLUCOSE METER Timed 06/02/2024 6:58 AM NURSE TRANSPLANT HEMOGLOBIN Early AM 06/02/2024 6:15 AM NURSE TRANSPLANT WHITE BLOOD COUNT Early AM 06/02/2024 6:1 5 AM NURSE TRANSPLANT BASIC METABOLIC PANEL Early AM 06/02/2024 6:15 AM NURSE TRANSPLANT GLUCOSE METER Timed 06/01/2024 10:09 PM NURSE TRANSPLANT US ARTERIAL LOWER EXTREMITY W RITA BILATERAL Routine 06/01/2024 8:15 PM NURSE TRANSPLANT GLUCOSE METER Timed 06/01/2024 5:09 PM NURSE TRANSPLANT GLUCOSE METER Timed 06/01/2024 8:28 AM NURSE TRANSPLANT SCAN-CARDIAC STRIP 06/01/2024 7: 51 AM NURSE TRANSPLANT VANCOMYCIN Early AM 06/01/2024 6:29 AM NURSE TRANSPLANT HEMOGLOBIN Early AM 06/01/2024 6:29 AM NURSE TRANSPLANT WHITE BLOOD COUNT Early AM 06/01/2024 6:2 9 AM NURSE TRANSPLANT BASIC METABOLIC PANEL Early AM 06/01/2024 6:29 AM NURSE TRANSPLANT GLUCOSE METER Timed 05/31/2024 11:03 PM NURSE TRANSPLANT GLUCOSE METER Timed 05/31/2024 6:20 PM NURSE TRANSPLANT ANAEROBIC CULTURE Today 05/31/2024 4:3 3 PM NURSE TRANSPLANT AEROBIC BACTERIAL CULTURE, STAIN Today 05/31/2024 4:33 PM NURSE TRANSPLANT XR FOOT 3 VIEWS LEFT SUZI 05/31/2024 1:53 PM NURSE TRANSPLANT ECHO TTE COMPLETE WO CONTRAST Routine 05/31/2024 12:49 PM NURSE TRANSPLANT GLUCOSE METER Timed 05/31/2024 11:55 AM NURSE TRANSPLANT GLUCOSE METER Timed 05/31/2024 8:57 AM NURSE TRANSPLANT SCAN-CARDIAC STRIP 05/31/2024 7: 47 AM NURSE TRANSPLANT HEMOGLOBIN A1C SUZI 05/31/2024 7:21 AM NURSE TRANSPLANT PLATELET COUNT SUZI 05/31/2024 7:21 AM NURSE TRANSPLANT MAGNESIUM Add On 05/31/2024 7:21 AM NURSE TRANSPLANT HEMOGLOBIN Early AM 05/31/2024 7:21 AM NURSE TRANSPLANT WHITE BLOOD COUNT Early AM 05/31/2024 7:2 1 AM NURSE TRANSPLANT BASIC METABOLIC PANEL Early AM 05/31/2024 7:21 AM NURSE TRANSPLANT GLUCOSE METER Timed 05/30/2024 5:15 PM NURSE TRANSPLANT SCAN-CARDIAC STRIP 05/30/2024 4: 52 PM NURSE TRANSPLANT GLUCOSE METER Timed 05/30/2024 1:04 PM NURSE TRANSPLANT SCAN CORRESP-IMAGING 05/30/2024 12:50 PM NURSE TRANSPLANT SCAN CORRESP-EKG RESULTS 05/30/2024 12:28 PM NURSE TRANSPLANT HEMOGLOBIN Early AM 05/30/2024 8:42 AM NURSE TRANSPLANT WHITE BLOOD COUNT Early AM 05/30/2024 8:4 2 AM NURSE TRANSPLANT BASIC METABOLIC PANEL Early AM 05/30/2024 8:42 AM NURSE TRANSPLANT GLUCOSE METER Timed 05/30/2024 8:09 AM NURSE TRANSPLANT SCAN-CARDIAC STRIP 05/30/2024 7: 29 AM NURSE TRANSPLANT GLUCOSE METER Timed 05/29/2024 8:40 PM NURSE TRANSPLANT GLUCOSE METER Timed 05/29/2024 5:02 PM NURSE TRANSPLANT GLUCOSE METER Timed 05/29/2024 11:58 AM NURSE TRANSPLANT SCAN-CARDIAC STRIP 05/29/2024 8: 32 AM NURSE TRANSPLANT GLUCOSE METER Timed 05/29/2024 7:50 AM NURSE TRANSPLANT PRO-BNP SUZI 05/29/2024 5:14 AM NURSE TRANSPLANT HEMOGLOBIN Early AM 05/29/2024 5:14 AM NURSE TRANSPLANT WHITE BLOOD COUNT Early AM 05/29/2024 5:1 4 AM NURSE TRANSPLANT BASIC METABOLIC PANEL Early AM 05/29/2024 5:14 AM NURSE TRANSPLANT GLUCOSE METER Timed 05/28/2024 9:44 PM NURSE TRANSPLANT GLUCOSE METER Timed 05/28/2024 6:12 PM NURSE TRANSPLANT GLUCOSE METER Timed 05/28/2024 1:01 PM NURSE TRANSPLANT SCAN-CARDIAC STRIP 05/28/2024 11 :31 AM NURSE TRANSPLANT GLUCOSE METER Timed 05/28/2024 9:07 AM NURSE TRANSPLANT ELECTROLYTE PANEL Early AM 05/28/2024 5:0 2 AM NURSE TRANSPLANT CBC W PLT NO DIFF Early AM 05/28/2024 5:0 2 AM NURSE TRANSPLANT GLUCOSE METER Timed 05/27/2024 4:42 PM NURSE TRANSPLANT XR CHEST 1 VIEW PORTABLE STAT 05/27/2024 4:40 PM NURSE TRANSPLANT GLUCOSE METER Timed 05/27/2024 12:17 PM NURSE TRANSPLANT SCAN-CARDIAC STRIP 05/27/2024 11 :15 AM NURSE TRANSPLANT GLUCOSE METER Timed 05/26/2024 9:40 PM NURSE TRANSPLANT GLUCOSE METER Timed 05/26/2024 4:52 PM NURSE TRANSPLANT GLUCOSE METER Timed 05/26/2024 11:24 AM NURSE TRANSPLANT SCAN-CARDIAC STRIP 05/26/2024 10 :29 AM NURSE TRANSPLANT GLUCOSE METER Timed 05/26/2024 8:57 AM NURSE TRANSPLANT GLUCOSE METER Timed 05/25/2024 5:44 PM NURSE TRANSPLANT SCAN-CARDIAC STRIP 05/25/2024 9: 28 AM NURSE TRANSPLANT GLUCOSE METER Timed 05/25/2024 8:23 AM NURSE TRANSPLANT TROPONIN T (HS) ONE TIME Timed 05/25/2024 7:26 AM NURSE TRANSPLANT SCAN-CARDIAC STRIP 05/25/2024 5: 46 AM NURSE TRANSPLANT PRO-BNP Today 05/25/2024 5:37 AM NURSE TRANSPLANT TROPONIN T (HS) ACUTE W/2HR REFLEX STAT 05/25/2024 5:37 AM NURSE TRANSPLANT PROCALCITONIN Today 05/25/2024 5:37 AM NURSE TRANSPLANT BASIC METABOLIC PANEL Today 05/25/2024 5:37 AM NURSE TRANSPLANT CBC W PLT NO DIFF Today 05/25/2024 5:2 3 AM NURSE TRANSPLANT from Last 3 Months Results * US CAROTID DUPLEX BILATERAL (06/28/2024 3:35 PM NURSE TRANSPLANT) Anatomical Region Laterality Modality CAROTID, NECK Ultrasound 06/28/2024 3:10 PM NURSE TRANSPLANT Narrative 06/29/2024 8:31 AM NURSE TRANSPLANT VASCULAR ULTRASOUND REPORT SHERYL SERRANO : 1940 Study Date: 06/28/2024 3:10:36 PM Age: 84 years Tech: JA Gender: M Referring MD: SNEHA DE LA CRUZ Site: [facility] Study performed: Carotid Indication for [...] Accreditation Commission (IAC/Vascular), [email or web address] Report generated by [employer]. Final Procedure Note Gary Petersen MD - 06/29/2024 VASCULAR ULTRASOUND REPORT SHERYL SERRANO : 1940 Study Date: 06/28/2024 3:10:36 PM Age: 84 years Tech: JA Gender: M Referring MD: SNEHA DE LA CRUZ Site: [facility] Study performed: Carotid Indication for [...] theIntersocietal Accreditation Commission (IAC/Vascular),[email or web address] Report generated by [employer]. Final us Sneha De La Cruz MD US Final R esult * (ABNORMAL) GLUCOSE METER (06/08/2024 8:11 AM NURSE TRANSPLANT) Only the most recent of45 resultswithin the time period is included. GLUCOSE METER 150(H) 65 - 100 mg/dL 06/08/2024 8:20 AM [facility] Blood BLOOD SPECIMEN / Unknown 06/08/2024 8:11 AM NURSE TRANSPLANT 06/08/2024 8:20 AM NURSE TRANSPLANT us Phillip Hill DO CHEMISTRY Aleah l Result [facility] SENDOUT INTERNAL ZIP [phone] [place] [phone] * SCAN-CARDIAC STRIP (06/08/2024 12:57 AM NURSE TRANSPLANT) us Scanner OTHER Final Result * SCAN-CARDIAC STRIP (06/07/2024 4:16 PM NURSE TRANSPLANT) us Scanner OTHER Final Result * PLATELET COUNT (06/07/2024 10:53 AM NURSE TRANSPLANT) Only the most recent of2 resultswithin the time period is included. PLATELET COUNT 169 140 - 440 thou/cu mm 06/07/2024 11:07 AM NURSE TRANSPLANT [facility] MPV 10.0 6.5 - 11.0 fL 06/07/2024 11:07 AM [facility] Blood BLOOD SPECIMEN / Unknown Non-Lab Venipuncture / Unknown 06/07/2024 10:53 AM NURSE TRANSPLANT 06/07/2024 11:04 AM NURSE TRANSPLANT us Sheyla Chaudhry MD HEMATOLOGY Final Re sult [facility] SENDOUT INTERNAL ZIP [phone] [place] [phone] * (ABNORMAL) BASIC METABOLIC PANEL (06/07/2024 10:53 AM NURSE TRANSPLANT) Only the most recent of9 resultswithin the time period is included. SODIUM 135(L) 136 - 145 mmol/L 06/07/2024 11:25 AM [facility] POTASSIUM 4.1 3.5 - 5.1 mmol/L 06/07/2024 11:25 AM [facility] CHLORIDE 96(L) 98 - 107 mmol/L 06/07/2024 11:25 AM [facility] CO2,TOTAL 28 22 - 29 mmol/L 06/07/2024 11:25 AM [facility] ANION GAP 11 5 - 18 06/07/2024 11:25 AM [facility] GLUCOSE 111(H) 70 - 99 mg/dL 06/07/2024 11:25 AM [facility] CALCIUM 8.8 8.8 - 10.4 mg/dL 06/07/2024 11:25 AM [facility] Comment: Reference ranges for this test were updated on 04/12/2024 to reflect our healthy population more accurately. Reference range changes are not retroactively applied to results, but previous results using the same methodology can be interpreted in the context of the new reference range. BUN 35(H) 8 - 23 mg/dL 06/07/2024 11:25 AM [facility] CREATININE 4.83(H) 0.70 - 1.20 mg/dL 06/07/2024 11:25 AM [facility] BUN/CREAT RATIO 7(L) 10 - 20 11:25 AM [facility] eGFR 11(L) >90 mL/min/1. 73m2 06/07/2024 11:25 AM [facility] Comment:As of 2021, eG FR is calculated by the CKD-EPI creatinine equation without race adjustment. eGFR can be influenced by muscle mass, exercise, and diet. The reported eGFR is an estimation only and is only applicable if the renal function is stable. Blood BLOOD SPECIMEN / Unknown Non-Lab Venipuncture / Unknown 06/07/2024 10:53 AM NURSE TRANSPLANT 06/07/2024 11:04 AM [facility] us Phillip Pack DO CHEMISTRY Final Resul t [facility] SENDOUT INTERNAL ZIP [phone] [place] [address] * SCAN-CARDIAC STRIP (06/07/2024 10:39 AM NURSE TRANSPLANT) us Scanner OTHER Final Result * SCAN-CARDIAC STRIP (06/06/2024 4:02 PM NURSE TRANSPLANT) us Scanner OTHER Final Result * SCAN-CARDIAC STRIP (06/05/2024 4:51 PM NURSE TRANSPLANT) us Scanner OTHER Final Result * CT HEAD BRAIN WO (06/05/2024 4:00 PM NURSE TRANSPLANT) Anatomical Region Laterality Modality HEAD, BRAIN Computed Tomogra phy 06/05/2024 4:00 PM NURSE TRANSPLANT Impressions 06/05/2024 4:51 PM NURSE TRANSPLANT 1. No CT evidence for acute intracranial process. 2. Brain atrophy and presumed chronic microvascular ischemic changes as above. Narrative 06/05/2024 4:51 PM NURSE TRANSPLANT For Patients: As a result of the Cures Act, medical imaging exams and procedure reports are released immediately into your electronic medical record. You may view this report before your referring provider. If you have questions, please contact your health care provider. EXAM: CT HEAD BRAIN WO LOCATION: [facility] DATE: 06/05/2024 INDICATION: Mental status [...] provider. EXAM: CT HEAD BRAIN WO LOCATION: [facility] DATE: 06/05/2024 INDICATION: Mental status [...] esult * SCAN-CARDIAC STRIP (06/05/2024 2:52 PM NURSE TRANSPLANT) us Scanner OTHER Final Result * SCAN-CARDIAC STRIP (06/05/2024 2:52 PM NURSE TRANSPLANT) us Scanner OTHER Final Result * XR Foot 3 Views Left Portable- Non-Weight Bearing (06/05/2024 8:56 AM NURSE TRANSPLANT) Anatomical Region Laterality Modality FEET, FOOT L Computed Radiogr aphy 06/05/2024 8:56 AM NURSE TRANSPLANT Impressions 06/05/2024 9:34 AM NURSE TRANSPLANT Interval amputation right great toe at the level of the base of the proximal phalanx. No new bony erosive change to suggest osteomyelitis. 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 Osteopenia. No acute fracture. Arteriovascular calcifications. Narrative 06/05/2024 9:34 AM NURSE TRANSPLANT For Patients: As a result of the [...] TISSUE CULTURE, STAIN (AEROBIC) (06/05/2024 7:42 AM NURSE TRANSPLANT) CULTURE RESULT(A) 06/08/2024 9:33 AM NURSE TRANSPLANT [facility] CULTURE 1+ Staphylococcus aureus 06/08/2024 9:33 AM NURSE TRANSPLANT [facility]-CE NTRWV LABORATORY GRAM STAIN 1+ PMNs 06/08/2024 9:33 AM NURSE TRANSPLANT [facility] GRAM STAIN No Epithelial cells 06/08/2024 9:33 AM NURSE TRANSPLANT [facility] GRAM STAIN 1+ RBCs 06/08/2024 9:33 AM NURSE TRANSPLANT [facility] GRAM STAIN No organisms seen 025 9:33 AM NURSE TRANSPLANT [facility] GRAM STAIN Gram stain performed by [place], [place] 06/08/2024 9:33 AM NURSE TRANSPLANT [facility] Bone (Left Great Toe) Non-Blood / Unknown 06/05/2024 7:42 AM NURSE TRANSPLANT 06/05/2024 8:36 AM NURSE TRANSPLANT Narrative Organism Antibiotic Method Susceptibility Staphylococcus aureus OXACILLIN <=0.25: S Comment:Oxacillin wetzel sceptible should not be interpreted as penicillin or amoxicillin susceptible. Staphylococcus aureus CLINDAMYCIN 0.25: S Staphylococcus aureus DOXYCYCLINE <=0.5: S Staphylococcus aureus CEFAZOLIN S Staphylococcus aureus TRIMETHOPRIM/SULF <=0.5/9.5: S Phillip Hutton DPM MICROBIOLOGY Final Resul t Performing Organization Address [facility] [place] Co de Phone Number [facility] [address] [place] [address], [facility] SENDOUT [place]NAL ZIP [phone] [place] [address] * ANAEROBIC CULTURE (06/05/2024 7:42 AM NURSE TRANSPLANT) Only the most recent of2 resultswithin the time period is included. CULTURE No anaerobes isolated 06/10/2024 10:03 AM NURSE TRANSPLANT [facility] TRAL LABORATORY Bone (Left Great Toe) Non-Blood / Unknown 06/05/2024 7:42 AM NURSE TRANSPLANT 06/05/2024 8:36 AM NURSE TRANSPLANT Phillip Hutton DPM MICROBIOLOGY Final Resul t Performing Organization Address [facility] [place] Co de Phone Number [facility] [address] [place] [address], * PATH TISSUE EXAM (06/05/2024 7:40 AM NURSE TRANSPLANT) Case Report Pathology Report Case: [id number] Authorizing Provider: Phillip Hutton DPM Collected: 06/05/2024 0740 Ordering Location: [facility] Received: 06/06/2024 0741 Pathologist: Zohra Lou DO Specimen: Left Great Toe, LEFT GREAT HALLUX 06/09/2024 11:27 AM NURSE TRANSPLANT [facility] LABOR[facility]-C ENTRAL LABORATORY Final Diagnosis A) FOOT, LEFT, GREAT TOE/HALLUX, AMPUTATION: 1. Focally acute and chronic osteomyelitis 2. Overlying gangrenous ulceration is present 3. Presumed proximal bone margin is negative for osteomyelitis (see comment) 4. Negative for malignancy 06/09/2024 11:27 AM NURSE TRANSPLANT [facility]ORAT[facility]-C ENTRAL LABORATORY Comment The specimen in this case was submitted in multiple fragments, and the bone margin was not separately submitted or designated specifically. Gross examination reveals one bone fragment with a flattened surface which is presumed to be the true margin, and this fragment is negative for osteomyelitis. 06/09/2024 11:27 AM [facility] [employer] LABORATORY-C ENTRAL LABORATORY Clinical Information Mr. Serrano is a 84 y.o. who has a history of diabetes mellitus, chronic kidney disease, peripheral arterial disease and left lower extremity wounds with suspected osteomyelitis of the distal and proximal phalanx of the left great toe. The patient underwent partial hallux amputation of the left foot. 06/09/2024 11:27 AM [facility] [employer] [facility]-C ENTRAL LABORATORY Gross Description A) Received in [...] on cut surface. No lesion is identified. Manager Performance sections are submitted: 1. Great toe: skin ulcer to nearest margin and bone underlying ulcer (decal) 2-3. Two pieces of flattened bone fragments: Presumed en face bony margin in 2 (decal) 4. Fibrotic soft tissue TTP 06/06/2024 06/09/2024 11:27 AM [facility] LABORATORY-C ENTRAL LABORATORY Microscopic Description The final diagnosis is based on microscopic examination of appropriate sections of all specimens. 06/09/2024 11:27 AM NURSE TRANSPLANT [facility] Additional Information Interpreted at [facility], Central Laboratory - [address], [place] [address] 06/09/2024 11:27 AM NURSE TRANSPLANT [facility]-C ENTRAL LABORATORY Tissue (Left Great Toe) 06/05/2024 7:40 AM NURSE TRANSPLANT 06/06/2024 7:41 AM NURSE TRANSPLANT us Phillip Hutton DPStefany PATHOLOGY/CYTOLOGY Final Re sult [facility]AL LAB[facility] [address] [place] [address], [facility] SENDOUT INTERNAL ZIP [phone] [place] [address] * SCAN-CARDIAC STRIP (06/04/2024 8:40 PM NURSE TRANSPLANT) us Scanner OTHER Final Result * SCAN-CARDIAC STRIP (06/04/2024 8:40 PM NURSE TRANSPLANT) us Scanner OTHER Final Result * SCAN-CARDIAC STRIP (06/04/2024 8:15 AM NURSE TRANSPLANT) us Scanner OTHER Final Result * SCAN-CARDIAC STRIP (06/04/2024 2:25 AM NURSE TRANSPLANT) us Scanner OTHER Final Result * (ABNORMAL) Hemoglobin - WATCH ENGINE OPERATOR (06/03/2024 8:05 PM NURSE TRANSPLANT) Only the most recent of6 resultswithin the time period is included. HEMOGLOBIN 8.0(L) 13.5 - 17.5 g/dL 06/03/2024 8:18 PM NURSE TRANSPLANT [facility] MCV 93 80 - 100 fL 06/03/2024 8:18 PM NURSE TRANSPLANT [facility] Blood BLOOD SPECIMEN / Unknown Line/Port / Unknown 06/03/2024 8:05 PM NURSE TRANSPLANT 06/03/2024 8:12 PM NURSE TRANSPLANT Narrative [facility] - 06/03/2024 8:18 PM NURSE TRANSPLANT For chest pain, tachycardia, or hypotension present. Emily Montes De Oca MD HEMATOLOGY Final R esult [facility] SENDOUT INTERNAL ZIP [phone] [place] [address] * (ABNORMAL) ACTIVATED CLOTTING TIME [id number] ACT (06/03/2024 3:09 PM NURSE TRANSPLANT) Only the most recent of2 resultswithin the time period is included. Pathologist [facility] ACTIVATED CLOTTING TIME, POCT 211(H) 74 - 125 sec 06/03/2024 3:33 PM NURSE TRANSPLANT [facility] Blood BLOOD SPECIMEN / Unknown 06/03/2024 3:09 PM NURSE TRANSPLANT 06/03/2024 3:33 PM NURSE TRANSPLANT Emily Montes De Oca MD HEMATOLOGY Final R esult Performing Organization Address City/[facility]/ZIP Co de Phone Number [facility] SENDOUT INTERNAL ZIP [phone] [place] [address] * (ABNORMAL) CBC W PLT NO DIFF (06/03/2024 9:59 AM NURSE TRANSPLANT) Only the most recent of3 resultswithin the time period is included. [facility] WHITE BLOOD COUNT 5.1 4.5 - 11.0 thou/cu mm 06/03/2024 10:14 AM [facility] RED BLOOD COUNT 2.39(L) 4.30 - 5.90 mil/cu mm 06/03/2024 10:14 AM [facility] HEMOGLOBIN 7.6(L) 13.5 - 17.5 g/dL 06/03/2024 10:14 AM [facility] HEMATOCRIT 22.1(L) 37.0 - 53.0 % 06/03/2024 10:14 AM [facility] MCV 93 80 - 100 fL 06/03/2024 10:14 AM [facility] MCH 31.8 26.0 - 34.0 pg 06/03/2024 10:14 AM [facility] MCHC 34.4 32.0 - 36.0 g/dL 06/03/2024 10:14 AM [facility] RDW 14.0 11.5 - 15.5 % 06/03/2024 10:14 AM NURSE TRANSPLANT [facility] PLATELET COUNT 165 140 - 440 thou/cu mm 06/03/2024 10:14 AM NURSE TRANSPLANT [facility] MPV 10.6 6.5 - 11.0 fL 06/03/2024 10:14 AM NURSE TRANSPLANT [facility] NRBC 0.0 % 06/03/2024 10:14 AM NURSE TRANSPLANT [facility] ABS NRBC 0.0 thou /cu mm 06/03/2024 10:14 AM NURSE TRANSPLANT [facility] Blood BLOOD SPECIMEN / Unknown Butterfly / Unknown 06/03/2024 9:59 AM NURSE TRANSPLANT 06/03/2024 10:06 AM NURSE TRANSPLANT Elier ESTRELLA HEMATOLOGY Final Resu lt [facility] SENDOUT INTERNAL ZIP [phone] [place] [address] * SCAN-CARDIAC STRIP (06/03/2024 9:43 AM NURSE TRANSPLANT) us Scanner OTHER Final Result * IR PICC LINE (06/02/2024 3:26 PM NURSE TRANSPLANT) Anatomical Region Laterality Modality X-Ray Angiograph y, Other, Other 06/02/2024 3:26 PM NURSE TRANSPLANT Impressions 06/02/2024 4:05 PM NURSE TRANSPLANT Successful placement of PICC line. Narrative 06/02/2024 4:05 PM NURSE TRANSPLANT For Patients: As a result of the Cures Act, medical imaging exams and procedure reports are released immediately into your electronic medical record. You may view this report before your referring provider. If you have questions, please contact your health care provider. [facility] LOCATION: [facility] DATE: 06/02/2024 PROCEDURE: PERIPHERALLY INSERTED [...] Prior to the procedure, the surgeon and banking assistant performed hand hygiene and wore hat, [...] brachial vein was accessed and a 5 Vietnamese, 38 cm, double-lumen power PICC Solo peripherally [...] questions, please contact your health care provider. [facility] LOCATION: [facility] DATE: 06/02/2024 PROCEDURE: PERIPHERALLY INSERTED [...] drape. Prior to the procedure, thesurgeon and banking assistant performed hand hygiene and wore hat, [...] brachial vein was accessed and a 5 Vietnamese, 38 cm, double-lumenpower PICC Solo peripherally inserted [...] MR FOOT LEFT WO (06/02/2024 11:30 AM NURSE TRANSPLANT) Anatomical Region Laterality Modality FOOT L Magnetic Resonan ce, Other 06/02/2024 11:3 0 AM NURSE TRANSPLANT Impressions 06/02/2024 11:56 AM NURSE TRANSPLANT 1. Soft tissue ulceration at the dorsal [...] radiopaque foreign body. Narrative 06/02/2024 11:56 AM NURSE TRANSPLANT For Patients: As a result of the Cures Act, medical imaging exams and procedure reports are released immediately into your electronic medical record. You may view this report before your referring provider. If you have questions, please contact your health care provider. EXAM: MR FOOT LEFT WO LOCATION: [facility] DATE: 06/02/2024 INDICATION: Ulcer, question [...] provider. EXAM: MR FOOT LEFT WO LOCATION: [facility] DATE: 06/02/2024 INDICATION: Ulcer, question [...] Result * SCAN-CARDIAC STRIP (06/02/2024 9:44 AM NURSE TRANSPLANT) us Scanner OTHER Final Result * WHITE BLOOD COUNT (06/02/2024 6:15 AM NURSE TRANSPLANT) Only the most recent of5 resultswithin the time period is included. WHITE BLOOD COUNT 5.2 4.5 - 11.0 thou/cu mm 06/02/2024 6:33 AM NURSE TRANSPLANT [facility] NRBC 0.0 % 06/02/2024 6:33 AM NURSE TRANSPLANT [facility] ABS NRBC 0.0 thou /cu mm 06/02/2024 6:33 AM NURSE TRANSPLANT [facility] Blood BLOOD SPECIMEN / Unknown Non-Lab Venipuncture / Unknown 06/02/2024 6:15 AM NURSE TRANSPLANT 06/02/2024 6:26 AM NURSE TRANSPLANT us Luís Porter MD HEMATOLOGY Fi nal Result [facility] SENDOUT INTERNAL ZIP [phone] [place] [address] * US ARTERIAL LOWER EXTREMITY W RITA BILATERAL (06/01/2024 8:15 PM NURSE TRANSPLANT) Anatomical Region Laterality Modality LEGS Ultrasound 06/01/2024 8:15 PM NURSE TRANSPLANT Impressions 06/01/2024 8:45 PM NURSE TRANSPLANT 1. RIGHT LOWER EXTREMITY: Non calculable RITA [...] stenosis is visualized. Narrative 06/01/2024 8:45 PM NURSE TRANSPLANT For Patients: As a result of the Cures Act, medical imaging exams and procedure reports are released immediately into your electronic medical record. You may view this report before your referring provider. If you have questions, please contact your health care provider. EXAM: 1. RESTING ANKLE-BRACHIAL INDICES (ABIs) 2. DUPLEX ARTERIAL ULTRASOUND OF THE LOWER EXTREMITIES BILATERALLY LOCATION: [facility] DATE: 06/01/2024 INDICATION: Decreased extremity [...] Velocities described below. RIGHT LOWER EXTREMITY (cm/s): PAPER SAMPLE CLERK: 88, T PFA: 209, T SFA (proximal): 117, T SFA (mid): 262, B SFA (distal): 73, B Pop A Prox: 35, B Pop A Dist: 45, B SUPERVISOR PAINT DEPARTMENT Dist: 101, B SULTANA: No significant flow. DPA: No significant flow. (M=monophasic, B=biphasic, T=triphasic) LEFT LOWER EXTREMITY (cm/s): PAPER SAMPLE CLERK: 95, T PFA: 205, T SFA (proximal): 149, T SFA (mid): 111, T SFA (distal): 132, T Pop A Prox: 76, B Pop A Dist: 60, M SUPERVISOR PAINT DEPARTMENT Dist: 45, M SULTANA: No significant flow. [...] ULTRASOUND OF THE LOWER EXTREMITIES BILATERALLY LOCATION: [facility] DATE: 06/01/2024 INDICATION: Decreased extremity [...] Velocities described below. RIGHT LOWER EXTREMITY (cm/s): PAPER SAMPLE CLERK: 88, T PFA: 209, T SFA (proximal): 117, T SFA (mid): 262, B SFA (distal): 73, B Pop A Prox: 35, B Pop A Dist: 45, B SUPERVISOR PAINT DEPARTMENT Dist: 101, B SULTANA: No significant flow. DPA: No significant flow. (M=monophasic, B=biphasic, T=triphasic) LEFT LOWER EXTREMITY (cm/s): PAPER SAMPLE CLERK: 95, T PFA: 205, T SFA (proximal): 149, T SFA (mid): 111, T SFA (distal): 132, T Pop A Prox: 76, B Pop A Dist: 60, M SUPERVISOR PAINT DEPARTMENT Dist: 45, M SULTANA: No significant flow. [...] Result * SCAN-CARDIAC STRIP (06/01/2024 7:51 AM NURSE TRANSPLANT) us Scanner OTHER Final Result * VANCOMYCIN (06/01/2024 6:29 AM NURSE TRANSPLANT) VANCOMYCIN 24.4 ug/mL 06/01/2024 7:26 AM [facility] Comment:No Reference Range D efined. DATE OF LAST DOSE,RANDOM Not Given 06/01/2024 7:26 AM NURSE TRANSPLANT [facility] TIME OF LAST DOSE,RANDOM Not Given 06/01/2024 7:26 AM NURSE TRANSPLANT [facility] Blood BLOOD SPECIMEN / Unknown Venipuncture / Unknown 06/01/2024 6:29 AM NURSE TRANSPLANT 06/01/2024 6:58 AM NURSE TRANSPLANT Anca Ariella Montes De Oca MD CHEMISTRY Final R esult [facility] SENDOUT INTERNAL ZIP [phone] [place] [address] * (ABNORMAL) AEROBIC BACTERIAL CULTURE, STAIN (05/31/2024 4:33 PM NURSE TRANSPLANT) CULTURE RESULT(A) 06/03/2024 11:21 AM NURSE TRANSPLANT [facility]-CE [facility] LABORATORY CULTURE 3+ Staphylococcus aureus 06/03/2024 11:21 AM NURSE TRANSPLANT [facility]- N[facility] LABORATORY CULTURE 3+ Achromobacter xylosoxidans 06/03/2024 11:21 AM NURSE TRANSPLANT [facility]- NTRAL LABORATORY CULTURE 3+ Mixed brigette present 06/03/2024 11:21 AM NURSE TRANSPLANT [facility]- [facility] LABORATORY GRAM STAIN 1+ PMNs 06/03/2024 11:21 AM NURSE TRANSPLANT [facility] GRAM STAIN No Epithelial cells 06/03/2024 11:21 AM NURSE TRANSPLANT [facility] GRAM STAIN 1+ RBCs 06/03/2024 11:21 AM NURSE TRANSPLANT [facility] GRAM STAIN 3+ Gram Positive Cocci 06/03/2024 11:21 AM NURSE TRANSPLANT [facility] GRAM STAIN Gram stain performed by [place], [place] 06/03/2024 11:21 AM NURSE TRANSPLANT [facility] Other (Other) Non-Blood / Unknown 05/31/2024 4:33 PM NURSE TRANSPLANT 05/31/2024 4:42 PM NURSE TRANSPLANT Narrative [facility]TRAL LABORAT[facility] - 06/03/2024 11:21 AM NURSE TRANSPLANT Mixed Brigette; No beta-Strep, Strep. pneumoniae, or [...] S Francisca Roman NP MICROBIOLOGY Final Result [facility] [address] [place] [address], [facility] SENDOUT INTERNAL ZIP [phone] [place] [address] * XR FOOT 3 VIEWS LEFT (05/31/2024 1:53 PM NURSE TRANSPLANT) Anatomical Region Laterality Modality FEET, FOOT L Computed Radiogr aphy 05/31/2024 1:53 PM NURSE TRANSPLANT Impressions 05/31/2024 1:59 PM NURSE TRANSPLANT Osteopenia. Marked calcified atherosclerosis. Neuropathic changes left midfoot. Findings have progressed since 2011. No evidence of osteomyelitis. Narrative 05/31/2024 1:59 PM NURSE TRANSPLANT For Patients: As a result of the [...] TTE COMPLETE WO CONTRAST (05/31/2024 12:49 PM NURSE TRANSPLANT) EJECTION FRACTION 40-45% PROSOLV Anatomical Region Laterality Modality Ultrasound 05/31/2024 12:0 6 PM NURSE TRANSPLANT Narrative 05/31/2024 1:23 [place] [address] Main: [email or web address] Transthoracic Echo Report SHERYL SERRANO ID: [id number] Age: 84 : 1940 Ordering Provider: EMILY MONTES DE OCA Exam Date: 05/31/2024 12:06 Gender: M Aircraft Cabin Cleaner: SHIVAM Height: 72 in BSA: 2.06 m [...] ZScore: -0.31 Leidy Stephenson MD (Electronically Signed) [facility] Site Final Date: 31 May 2024 13:23 ICD-10 Codes: I24.8 Procedure Note Leidy Stephenson MD - 05/31/2024 [place] [address] Main: [email or web address] Transthoracic Echo Report SHERYL SERRANO Makayla ID: [id number] Age: 84 : 1940 Ordering Provider:EMILY MONTES DE OCA Exam Date: 05/31/2024 12:06 Gender: M Aircraft Cabin Cleaner: SHIVAM Height: 72 in BSA: 2.06 m [...] ZScore: -0.31 Leidy Stephenson MD (Electronically Signed) [facility] Accredited Site Final Date: 31 May 2024 13:23 ICD-10 Codes: I24.8 us Anca Ariella Montes De Oca MD ECHO ORD Final R esult * SCAN-CARDIAC STRIP (05/31/2024 7:47 AM NURSE TRANSPLANT) us Scanner OTHER Final Result * HEMOGLOBIN A1C (05/31/2024 7:21 AM NURSE TRANSPLANT) HEMOGLOBIN A1C SCREENING 4.9 <=6.4 % 05/31/2024 1:53 PM NURSE TRANSPLANT [facility] Blood BLOOD SPECIMEN / Unknown Butterfly / Unknown 05/31/2024 7:21 AM NURSE TRANSPLANT 05/31/2024 7:44 AM NURSE TRANSPLANT Narrative [facility] - 05/31/2024 1:53 PM NURSE TRANSPLANT (<5.7%) Normal (5.7% to 6.4%) Indicates prediabetes (>=6.5%) Confirms diabetes Falsely low levels may be seen with: Recent Transfusion, Recent Significant Blood Loss, Hemolytic Diseases, or Falsely elevated levels may be seen with: Untreated Anemias, Splenectomy us Francisca Roman NP CHEMISTRY Final Result Performing Organization Address [facility] [place]/[facility]/ZIP Co de Phone Number [facility] SENDOUT INTERNAL ZIP [address] [place] [phone] * MAGNESIUM (05/31/2024 7:21 AM NURSE TRANSPLANT) MAGNESIUM 2.0 1.6 - 2.4 mg/dL 05/31/2024 10:05 AM NURSE TRANSPLANT [facility] Blood BLOOD SPECIMEN / Unknown Butterfly / Unknown 05/31/2024 7:21 AM NURSE TRANSPLANT 05/31/2024 7:44 AM NURSE TRANSPLANT us Emily Montes De Oca MD CHEMISTRY Final R esult Performing Organization Address City/[facility]/ZIP Co de Phone Number [facility] SENDOUT INTERNAL ZIP [phone] [place] [phone] * SCAN-CARDIAC STRIP (05/30/2024 4:52 PM NURSE TRANSPLANT) us Scanner OTHER Final Result * SCAN CORRESP-IMAGING (05/30/2024 12:50 PM NURSE TRANSPLANT) Anatomical Region Laterality Modality Other Narrative 05/30/2024 12:50 PM NURSE TRANSPLANT Ordered by an unspecified provider. us Other Clinical Staff OTHER Final Resul t * SCAN CORRESP-EKG RESULTS (05/30/2024 12:28 PM NURSE TRANSPLANT) Narrative 05/30/2024 12:28 PM NURSE TRANSPLANT Ordered by an unspecified provider. us Other Clinical Staff OTHER Final Resul t * SCAN-CARDIAC STRIP (05/30/2024 7:29 AM NURSE TRANSPLANT) us Scanner OTHER Final Result * SCAN-CARDIAC STRIP (05/29/2024 8:32 AM NURSE TRANSPLANT) us Scanner OTHER Final Result * (ABNORMAL) PRO-BNP (05/29/2024 5:14 AM NURSE TRANSPLANT) Only the most recent of2 resultswithin the time period is included. PRO-BNP >70,000(H) <450 pg/mL 05/29/2024 12:54 PM NURSE TRANSPLANT [facility] Blood BLOOD SPECIMEN / Unknown Butterfly / Unknown 05/29/2024 5:14 AM NURSE TRANSPLANT 05/29/2024 5:25 AM NURSE TRANSPLANT Narrative [facility] - 05/29/2024 12:54 PM NURSE TRANSPLANT The following cut-points have been suggested for [...] Porter MD SEND OUTS Fi nal Result [facility] SENDOUT INTERNAL ZIP [phone] [place] [address] * SCAN-CARDIAC STRIP (05/28/2024 11:31 AM NURSE TRANSPLANT) us Scanner OTHER Final Result * (ABNORMAL) ELECTROLYTE PANEL (05/28/2024 5:02 AM NURSE TRANSPLANT) SODIUM 135(L) 136 - 145 mmol/L 05/28/2024 6:15 AM NURSE TRANSPLANT [facility] POTASSIUM 4.0 3.5 - 5.1 mmol/L 05/28/2024 6:15 AM [facility] CHLORIDE 97(L) 98 - 107 mmol/L 05/28/2024 6:15 AM [facility] CO2,TOTAL 29 22 - 29 mmol/L 05/28/2024 6:15 AM NURSE TRANSPLANT [facility] ANION GAP 9 5 - 18 05/28/2024 6:15 AM [facility] Blood BLOOD SPECIMEN / Unknown Venipuncture / Unknown 05/28/2024 5:02 AM NURSE TRANSPLANT 05/28/2024 5:30 AM NURSE TRANSPLANT Ezekiel Soto DO CHEMISTRY Aleah l Result [facility] SENDOUT INTERNAL ZIP [phone] [place] [address] * XR CHEST 1 VIEW PORTABLE (05/27/2024 4:40 PM NURSE TRANSPLANT) Anatomical Region Laterality Modality HEART, THORAX, CHEST Computed Ra diography 05/27/2024 4:40 PM NURSE TRANSPLANT Impressions 05/27/2024 4:55 PM NURSE TRANSPLANT Sternotomy. Right pacemaker. Small left effusion with atelectasis. No right effusion. Bilateral calcified granulomas. Right lung clear. Calcified mediastinal and bilateral hilar lymph nodes. Narrative 05/27/2024 4:55 PM NURSE TRANSPLANT For Patients: As a result of the Century Cures Act, medical imaging exams and procedure reports are released immediately into your electronic medical record. You may view this report before your referring provider. If you have questions, please contact your health care provider. EXAM: XR CHEST 1 VIEW PORTABLE LOCATION: [facility] DATE: 05/27/2024 INDICATION: SOB Other [...] EXAM: XR CHEST 1 VIEW PORTABLE LOCATION: [facility] DATE: 05/27/2024 INDICATION: SOB Other re-assess pleural effusion COMPARISON: 02/26/23 xray, 11/18/19 xray IMPRESSION: Sternotomy. Right pacemaker. Small left effusion with atelectasis. Noright effusion. Bilateral calcified granulomas. Right lung clear.Calcified mediastinal and bilateral hilar lymph nodes. us Ezekiel Shahid Magisrael DO GENERAL IMAGING Aleah l Result * SCAN-CARDIAC STRIP (05/27/2024 11:15 AM NURSE TRANSPLANT) us Scanner OTHER Final Result * SCAN-CARDIAC STRIP (05/26/2024 10:29 AM NURSE TRANSPLANT) us Scanner OTHER Final Result * SCAN-CARDIAC STRIP (05/25/2024 9:28 AM NURSE TRANSPLANT) us Scanner OTHER Final Result * (ABNORMAL) TROPONIN T (HS) ONE TIME (05/25/2024 7:26 AM NURSE TRANSPLANT) TROPONIN T HS 248(H) 6-15 ng/L ng/L 05/25/2024 8:23 AM NURSE TRANSPLANT [facility] Blood BLOOD SPECIMEN / Unknown Venipuncture / Unknown 05/25/2024 7:26 AM NURSE TRANSPLANT 05/25/2024 8:01 AM NURSE TRANSPLANT us Sheyla Chaudhry MD CHEMISTRY Final Re sult [facility] SENDOUT INTERNAL ZIP [phone] [place] [address] * SCAN-CARDIAC STRIP (05/25/2024 5:46 AM NURSE TRANSPLANT) us Scanner OTHER Final Result * (ABNORMAL) TROPONIN T (HS) ACUTE W/2HR REFLEX (05/25/2024 5:37 AM NURSE TRANSPLANT) TROPONIN T HS 256(H) 6-15 ng/L ng/L 05/25/2024 6:17 AM NURSE TRANSPLANT [facility] Blood BLOOD SPECIMEN / Unknown Venipuncture / Unknown 05/25/2024 5:37 AM NURSE TRANSPLANT 05/25/2024 5:38 AM NURSE TRANSPLANT Narrative [facility] - 05/25/2024 6:17 AM NURSE TRANSPLANT hs-cTnT (Elecsys Troponin T Gen 5) concentration [...] Sheyla Chaudhry MD CHEMISTRY Final Re sult [facility] SENDOUT INTERNAL [address]IP [id number] [address] [place] [address] * PROCALCITONIN (05/25/2024 5:37 AM NURSE TRANSPLANT) PROCALCITONIN 0.47 ng/ml 05/25/2024 6:18 AM NURSE TRANSPLANT [facility] Blood BLOOD SPECIMEN / Unknown Venipuncture / Unknown 05/25/2024 5:37 AM NURSE TRANSPLANT 05/25/2024 5:38 AM NURSE TRANSPLANT Narrative [facility] - 05/25/2024 6:18 AM NURSE TRANSPLANT Procalcitonin for initial assessment of Lower Respiratory [...] Chaudhry MD SEND OUTS Final Re sult [facility] SENDOUT [place]NAL ZIP [id number] [address] [place] [address] from Last 3 Months Insurance [id number] [place] [id number] MEDICARE RR PART A HB ONLY [facility] [place] [place] [address] [place] [id number] [facility] PPS [id number] [place] [id number] Advance Directives Documents on File Type Date Recorded Patient Manager Performance Expl anation Power of Build Automation Engineer 06/05/2019 06/05/2019 Healthcare Directive 06/05/2019 019 Power of Build Automation Engineer 07/19/2006 * Full Code (Latest Code Status [...] 11:52 AM 11/02/2018 9:20 PM Care Teams Outside Upholsterer Relationship Specialty Start Date End Date Anna Marie Oglesby DO Chris Redd [place] [id number] PCP - General Family Practice 10/06/22 [address] [id number] 01/02/23 [facility] [address] [place] [address] 06/08/24
--- OUTSIDE RECORDS SUMMARY | 2024-07-01 17:34 | XMS_ITS | Continuity of Care Document ---
Author Name [facility] Organization [facility] Care Team Providers Care Javascript Front End Developer Name Role Phone [facility] Unavailable Unavailable Problems Combined list of problems from Department of Defense and Veterans 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 It does not include entries that were removed or entered in error. Problem Status Onset Date Problem Type Date of Resolution Comments Source Adenoma of large intestine Active Condition Jan 17, 2005 Entered By: TOMMY SARMIENTO Comment: colonoscopy and polypectomy 12/10, tubular adenoma at [facility] Cataract, Senile, Unsp Active Condition [facility] Chronic cough Active Condition [facility] Chronic obstructive lung disease Active Condition [facility] Chronic rhinitis Active Condition [facility] Coronary arteriosclerosis Active Condition Nov 10 7 Entered By: LIZZETTE WEI Comment: s/p [id number] at [facility] in 07/15 [facility] Diabetes mellitus Active Condition [facility] Diabetic neuropathy Active Condition [facility] Diabetic renal disease Active Condition Dec 02, 2018 Entered By: CARLOS DALTON Comment: 10/2018: started hemodialysis @ [facility] in [facility] 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 [facility] Dyslipidemia Active Condition [facility] End-stage renal disease Active Condition [facility] Essential hypertension Active Condition [facility] Exposure to potentially hazardous substance Active Condition Dec 18, 2022 Entered By: CORRINE MATHEWS Comment: Asbestos [facility] Ganglion of wrist Active Condition [facility] Gastroesophageal reflux disease without esophagitis Active Condition [facility] Hemorrhoid Active Condition [facility] Hyperparathyroidism due to renal insufficiency Active Condition [facility] Hypothyroidism Active Condition [facility] Incontinence of feces Active Condition [facility] Indwelling catheter inserted Active Condition [facility] Obstructive Sleep Apnea of Adult (SCT [id number]) Active Condition October 28, 2022 Entered By: KINGS ROCHA Comment: APAP: 10-20, Ramp: 5x10 min, [place] [facility] Oropharyngeal dysphagia Active Condition Dec 14, 2022 Entered By: CORRINE MATHEWS Comment: 2013 STAFF FORESTER eval in chart [facility] Psoriasis Nos Active [facility] Shared care - jury consultant and GP Active Condition Dec 02 Entered By: CARLOS DALTON Comment: PCP: L[facility] [place]: [phone] ov 2020 Entered By: CARLOS DALTON Comment: Route Aide: Dr James Pérez [phone] ov 2020 Entered By: CARLOS DALTON Comment: [facility] Cough (ICD-9-CM 786.2) Inactive Condition 03/23/2013 [facility] Diabetic Foot Ulcer (ICD-9-CM 250.80/707.8) Inactive Condition 03/23/2013 [facility] Diagnosis: ICD-10-CM I25.10 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 ang pctrs Active Diagnosis [facility] Diagnosis: ICD-10-CM R26.89 Other abnormalities of gait and mobility Active Diagnosis [facility] Diagnosis: ICD-10-CM M79.646 Pain in unspecified finger(s) Active Diagnosis [facility] Diagnosis: ICD-10-CM H90.3 Sensorineural hearing loss, bilateral Active Diagnosis [facility] Diagnosis: ICD-10-CM Z01.118 Encntr for exam of ears and hearing w oth abnormal findings Active Diagnosis [facility] N[facility]AY[facility] Diagnosis: ICD-10-CM H04.129 Dry eye [...] Chronic obstructive pulmonary disease, unspecified Active Diagnosis [facility] Diagnosis: ICD-10-CM Z65.8 Oth problems [...] RELIEF). RESPIR ATORY (INHAL ATION) ACTIVE 11/09/2024 [id number] 5 CASANDRA DALTON 2023 2 [facility] [place] [facility] ALBUTEROL 90MCG/ACTUA T (CFC-F) INHL,ORAL,8 .5GM DOSE COUNTER INHALE 2 PUFFS BY INHALATI ON EVERY 4 HOURS NEEDED FOR BREATHIN G [place] (FOR IMMEDIAT E RELIEF). RESPIR ATORY (INHAL ATION) DISCONT INUED 08/21/2023 [id number] 4 CASANDRA DALTON 2022 2 [facility] AZELASTINE HCL 137MCG/SPRA Y INHL,NASAL, 30ML SPRAY 1 PUFF IN EACH NOSTRIL TWICE A DAY FOR NASAL SYMPTOMS NASAL ACTIVE 12/31/2024 [id number] 5 RODRÍGUEZ MATHEWS 2023 2 [facility] CALCIUM CARBONATE TAB,CHEWABL E CHEW ONE TABLET BY MOUTH FOUR TIMES A DAY NEEDED ORAL ACTIVE RODRÍGUEZ MATHEWS 2022 [facility] CLOPIDOGREL BISULFATE 75MG TAB TAKE ONE TABLET BY MOUTH EVERY DAY TO PREVENT BLOOD CLOTS LENGTH OF TREATMEN T: MARIANA TE, CO-MANAG ED CARE PRESCRIP TION ORAL ACTIVE 06/16/2025 [id number] 5 RODRÍGUEZ MATHEWS 2024 90 [facility] COENZYME Q10 CAP/TAB TAKE ONE TABLET BY MOUTH EVERY DAY ORAL ACTIVE CASANDRA DALTON 2012 [facility] CYCLOSPORIN E 0.05% (PF) EMULSION,OP H,0.4ML INSTILL 1 DROP BOTH EYES TWICE A DAY OPHTHA LMIC ACTIVE 08/10/2024 [id number] 4 FB-PURFEE RST,MATHEW OD 2023 60 [facility] DEXTROMETHO RPHAN HBR 10MG/GUAIFE NESIN 100MG/5ML (AF & SF) LIQUID TAKE 1 TEASPOON FUL BY MOUTH EVERY 4 HOURS NEEDED FOR COUGH AND CONGESTI ON ORAL 03/09/2024 [id number] 4 [facility] 2022 120 [facility] DIALYVITE TAB TAKE 1 TABLET BY MOUTH EVERY DAY ORAL ACTIVE 07/02/2024 [id number] 5 [facility] 2023 100 [facility] DIALYVITE TAB TAKE 1 TABLET BY MOUTH EVERY DAY ORAL DISCONT INUED 09/10/2023 [id number] 4 BISIRODRÍGUEZ 2022 100 [facility] FLUTICASONE 250MCG/SALM ETEROL 50MCG INHL,ORAL,D ISKUS,60 INHALE 1 PUFF BY INHALATI ON TWICE A DAY TO PREVENT TROUBLE BREATHIN G -RINSE MOUTH AFTER USING RESPIR ATORY (INHAL ATION) ACTIVE 12/28/2024 [id number] 4 [facility] 2023 3 [facility] FLUTICASONE 250MCG/SALM ETEROL 50MCG INHL,ORAL,D ISKUS,60 INHALE 1 PUFF BY INHALATI ON TWICE A DAY TO PREVENT TROUBLE BREATHIN G -RINSE MOUTH AFTER USING RESPIR ATORY (INHAL ATION) DISCONT INUED 09/23/2023 [id number] 4 [facility] 2022 3 [facility] INSULIN,ASP ART,HUMAN (EQV-NOVOLO G) 100 UNIT/ML,FLE XPEN,3ML INJECT 5 UNITS UNDER THE SKIN BEFORE MEALS FOR DIABETES SUBCUT ANEOUS ACTIVE 10/26/2024 [id number] 4 BISIRODRÍGUEZ 2023 5 [facility] INSULIN,ASP ART,HUMAN (EQV-NOVOLO G) 100 UNIT/ML,FLE XPEN,3ML INJECT 5 UNITS UNDER THE SKIN TWICE A DAY TO DECREASE BLOOD SUGAR-- INJECT IMMEDIAT LINDA BEFORE MEAL (PEN FILL APPROVED ) REPLACES REGULAR INSULIN PEN SUBCUT ANEOUS 05/13/2023 [id number] 3 RODRÍGUEZ MATHEWS 2021 5 [facility] INSULIN,GLA RGINE,HUMAN 100 UNIT/ML INJ,SOLOSTA R,3ML INJECT 18 UNITS UNDER THE SKIN EVERY DAY FOR DIABETES DISCAR D PEN 28 DAYS AFTER INITIAL USE SUBCUT ANEOUS DISCONT INUED (EDIT) 06/06/2024 [id number] 4 RODRÍGUEZ MATHEWS 2023 5 [facility] INSULIN,GLA RGINE-YFGN 100UNIT/ML INJ PEN,3ML INJECT 18 UNITS UNDER THE SKIN EVERY DAY FOR DIABETES DISCAR D PEN 28 DAYS AFTER INITIAL USE SUBCUT ANEOUS 06/09/2024 [id number] 4 RODRÍGUEZ MATHEWS 2023 5 [facility] LEVOTHYROXI NE NA 200MCG TAB (SYNTHROID) TAKE ONE TABLET BY MOUTH EVERY DAY FOR THYROID ORAL ACTIVE 12/28/2024 [id number] 5 RODRÍGUEZ MATHEWS 2023 90 [facility] LEVOTHYROXI NE NA 200MCG TAB (SYNTHROID) TAKE ONE TABLET BY MOUTH EVERY DAY FOR THYROID ORAL DISCONT INUED 01/13/2024 [id number] 4 RODRÍGUEZ MATHEWS 2022 90 [facility] LORATADINE 10MG TAB TAKE ONE TABLET BY MOUTH EVERY DAY NEEDED ORAL ACTIVE RODRÍGUEZ MATHEWS 2022 [facility] MARINE LIPID (FISH OIL) CAP,ORAL TAKE 1200MG BY MOUTH EVERY DAY ORAL ACTIVE CASANDRA DALTON 2010 [facility] MIDODRINE HCL 10MG TAB TAKE ONE TABLET BY MOUTH DIRECTED - TAKE 1 TABLET BEFORE DIALYSIS AND 1 TABLET AFTER DIALYSIS , NEEDED FOR HYPOTENS ION OTHER DAYS ORAL ACTIVE 06/21/2025 [id number] Stefany TRAN 2024 90 [facility] MONTELUKAST NA 10MG TAB TAKE ONE TABLET BY MOUTH EVERY DAY ORAL ACTIVE 06/21/2025 [id number] CASANDRA DALTON 2024 90 [facility] [place] [facility] MONTELUKAST NA 10MG TAB TAKE ONE TABLET BY MOUTH EVERY DAY ORAL DISCONT INUED 05/08/2024 [id number] 4 CASANDRA DALTON 2022 90 [facility] NITROGLYCER IN 0.4MG TAB,SUBLING UAL DISSOLVE ONE TABLET UNDER THE TONGUE PRN SUBLIN GUAL ACTIVE CASANDRA DALTON 2010 [facility] PANTOPRAZOL E NA 40MG TAB,EC TAKE ONE TABLET BY MOUTH EVERY DAY ONE-HALF HOUR BEFORE EATING. ORAL ACTIVE 06/21/2025 [id number] 5 CASANDRA DALTON 2024 90 [facility] PANTOPRAZOL E NA 40MG TAB,EC TAKE ONE TABLET BY MOUTH EVERY DAY ONE-HALF HOUR BEFORE EATING. ORAL DISCONT INUED 07/02/2024 [id number] 4 CASANDRA DALTON 2023 90 [facility] PRAVASTATIN NA 40MG TAB TAKE ONE TABLET BY MOUTH AT BEDTIME FOR CHOLESTE ROL ORAL DISCONT INUED 06/05/2024 [id number] 3 CASANDRA DALTON 2022 90 [facility] PRAVASTATIN NA 40MG TAB TAKE ONE TABLET BY MOUTH AT BEDTIME FOR CHOLESTE ROL ORAL 06/06/2024 [id number] 4 RODRÍGUEZ MATHEWS 2023 90 [facility] SULFAMETHOX AZOLE 800MG/TRIME THOPRIM 160MG TAB TAKE 1 TABLET BY MOUTH TWICE A DAY ORAL 01/30/2024 [id number] 4 RODRÍGUEZ MATHEWS 2023 20 [facility] TIOTROPIUM 2.5MCG/ACTU AT INHL,ORAL,6 0D,4GM INHALE TWO PUFFS BY INHALATI ON EVERY DAY FOR ASTHMA RESPIR ATORY (INHAL ATION) DISCONT INUED 04/01/2025 [id number] 4 ZULETA,NE NA 2023 1 [facility] TIOTROPIUM 2.5MCG/ACTU AT INHL,ORAL,6 0D,4GM INHALE TWO PUFFS BY INHALATI ON EVERY DAY FOR ASTHMA RESPIR ATORY (INHAL ATION) DISCONT INUED 08/26/2024 [id number] 4 ZULETA,NE NA 2023 1 [facility] TIOTROPIUM 2.5MCG/ACTU AT INHL,ORAL,6 0D,4GM INHALE TWO PUFFS BY INHALATI ON EVERY DAY FOR ASTHMA RESPIR ATORY (INHAL ATION) DISCONT INUED 10/29/2023 [id number] 4 ZULETA,NE NA 2022 1 [facility] TIOTROPIUM 2.5MCG/ACTU AT INHL,ORAL,6 0D,4GM INHALE TWO PUFFS BY INHALATI ON EVERY DAY FOR ASTHMA RESPIR ATORY (INHAL ATION) 06/29/2024 [id number] 5 RODRÍGUEZ MATHEWS 2024 3 [facility] VANICREAM APPLY THIN LAYER TOPICALL Y EVERY DAY FOR DRY SKIN TOPICA L ACTIVE 12/28/2024 [id number] 5 RODRÍGUEZ MATHEWS 2023 1362 [facility] VANICREAM APPLY THIN LAYER TOPICALL Y EVERY DAY FOR DRY SKIN TOPICA L DISCONT INUED 12/19/2023 [id number] 4 RODRÍGUEZ MATHEWS 2022 1362 [facility] VITAMIN E 400UNT CAP TAKE 1 CAPSULE BY MOUTH EVERY DAY ORAL ACTIVE ME VELMA DAI 2013 [facility] ZINC SULFATE TAB TAKE 50MG BY MOUTH EVERY DAY ORAL ACTIVE ME MALAIKA VELMA 2014 [facility] Allergies, Adverse Reactions, Alerts Combined list of allergies from Department of Defense and Veterans 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 It does not include entries that were removed or entered in error. Substance Category Reaction Severity Reaction type Status Date Reported Comments Source ATORVASTATIN Propensity to adverse reactions to drug (finding) Pain in lower limb active 9 [facility] DOXYCYCLINE Propensity to adverse reactions to drug (finding) PRURITIS, Eruption active 4 [facility] HYDROCODONE Propensity to adverse reactions to drug (finding) Disorientat ed, Drowsy, Hallucinati ons active 3 [facility] LIPITOR Propensity to adverse reactions to drug (finding) Cramp active 0 [facility] LISINOPRIL Propensity to adverse reactions to drug (finding) Abdominal discomfort active 7 [facility] METOCLOPRAMI DE Propensity to adverse reactions to drug (finding) Gynecomasti a active [address] [facility] OMEPRAZOLE Propensity to adverse reactions to drug (finding) Diarrhea active [address] [facility] SIMVASTATIN Propensity to adverse reactions to drug (finding) MUSLCE CRAMPS active 4 [facility] Immunizations Combined list of available immunizations from the Department of Defense and [facility] 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 Status Comments Source INFLUENZA, RECOMBINANT, QUADRIVALENT, PF 2022 185 complet ed [facility] TDAP 2022 [facility] RIGHT DELTO ID [id number] 115 complet ed [facility] INFLUENZA, UNSPECIFIED FORMULATION 2021 88 complet ed [facility] COVID-19 (PFIZER), MRNA, LNP-S, PF, 30 MCG/0.3 ML DOSE, ALY-SUCROSE (AGES 12+ YEARS) 2021 217 complet ed [facility] COVID-19 (PFIZER), MRNA, LNP-S, PF, 30 MCG/0.3 ML DOSE 2020 208 complet ed [facility] INFLUENZA, UNSPECIFIED FORMULATION 2020 88 complet ed [facility] ZOSTER RECOMBINANT 2 2020 187 complet ed [facility] COVID-19 (PFIZER), MRNA, LNP-S, PF, 30 MCG/0.3 ML DOSE 2020 208 complet ed [facility] COVID-19 (PFIZER), MRNA, LNP-S, PF, 30 MCG/0.3 ML DOSE 2020 208 complet ed [facility] ZOSTER RECOMBINANT 1 2019 187 complet ed [facility] INFLUENZA, SEASONAL, INJECTABLE, PRESERVATIVE FREE 2019 140 complet ed [facility] INFLUENZA, UNSPECIFIED FORMULATION 2018 88 complet ed [facility] INFLUENZA, SEASONAL, INJECTABLE, PRESERVATIVE FREE 2017 140 complet ed [facility] INFLUENZA, HIGH DOSE SEASONAL 2016 135 complet ed [facility] INFLUENZA, HIGH-DOSE, TRIVALENT, PF 2015 135 complet ed [facility] INFLUENZA, HIGH DOSE SEASONAL 2014 135 complet ed [facility] PNEUMOCOCCAL CONJUGATE PCV 13 2014 133 complet ed [employer] [id number] 08/22 [facility] INFLUENZA, UNSPECIFIED FORMULATION 2013 88 complet ed [facility] INFLUENZA, UNSPECIFIED FORMULATION 2013 88 complet ed [facility] ZOSTER LIVE 2013 121 complet ed [facility] INFLUENZA, UNSPECIFIED FORMULATION 2012 88 complet ed [facility] PNEUMOCOCCAL, UNSPECIFIED FORMULATION 2012 109 complet ed [employer], [id number], [facility] TDAP [address] [facility] TDAP 2012 115 complet ed [facility] ZOSTER LIVE 2012 121 complet ed [employer] Lot#[id number] 14 [facility] TDAP 2012 115 complet ed [facility] INFLUENZA, UNSPECIFIED FORMULATION 2011 88 complet ed [facility] INFLUENZA, UNSPECIFIED FORMULATION 2010 88 complet ed [facility] INFLUENZA, UNSPECIFIED FORMULATION 2009 88 complet ed [facility] INFLUENZA, UNSPECIFIED FORMULATION 2008 88 complet ed [facility] TD(ADULT) UNSPECIFIED FORMULATION 2007 139 complet ed [facility] INFLUENZA, SPLIT VIRUS, TRIVALENT, PRESERVATIVE 2007 141 complet ed [facility] TD (ADULT), 5 LF TETANUS TOXOID, PRESERVATIVE FREE, ADSORBED 2007 113 complet ed [facility] INFLUENZA (HISTORICAL) 2006 88 complet ed [facility] INFLUENZA (HISTORICAL) 2005 88 complet ed [facility] INFLUENZA, UNSPECIFIED FORMULATION 2004 88 complet ed [facility] INFLUENZA, UNSPECIFIED FORMULATION 2003 88 complet ed [facility] PNEUMOCOCCAL, UNSPECIFIED FORMULATION 2003 109 complet ed [facility] TD(ADULT) UNSPECIFIED FORMULATION 2003 139 complet ed due next year [facility] INFLUENZA, SPLIT VIRUS, TRIVALENT, PRESERVATIVE 2002 141 complet ed [facility] INFLUENZA (HISTORICAL) 2002 88 complet ed pt states he had a Influenza vaccinati on this yr [facility] TD(ADULT) UNSPECIFIED FORMULATION 1994 139 complet ed [facility] Vital Signs Combined list of inpatient and outpatient Vital Signs from Department of Defense and Veterans [facility], ranging from 12 months to all on record, depending upon the facility. Vital Sign Value Date Comments Source SYSTOLIC BLOOD PRESSURE 103 12/31/2023 13:26:57 [facility] DIASTOLIC BLOOD PRESSURE 55 12/31/2023 13:26:57 [facility] PULSE OXIMETRY 95 12/31/2023 13:26:57 [facility] WEIGHT 200.2 12/31/2023 13:26:57 [facility] BMI 27kg/m2 12/31/2023 13:26:57 [facility] PAIN 6 12/31/2023 13:26:57 [facility] TEMPERATURE 98.4 12/31/2023 13:26:57 [facility] P[facility] 73 12/31/2023 13:26:57 [facility] RESPIRATION 18 12/31/2023 13:26:57 [facility] Encounters Combined list of: 1) Encounters from Department of Veterans Affairs facilities going back up to [facility] 18 months. 2) Encounters from the Department of Defense facilities going back up to 280 months. Location Location Details Encounter Type Encounter Number Reason For Visit Attending Provider ADM Date DC Date Status Disposition Source [place] [facility] Outpatient Encounter [id number] 01/07 [place] [facility] [place] [facility] Outpatient Encounter [id number] 02/05 [place] [facility] [place] [facility] Outpatient Encounter [id number] 02/11 [facility] PRO PHONE CALL 21-30 MIN [id number] Diagnos is: ICD-10- CM Z65.8 Oth problem s related to psychos ocial circums tances< br/> VESNA GRAY 02/11 [facility] [place] [facility] Outpatient Encounter [id number] DEBRA PINTO 02/18 [facility] SELF CARE MNGMENT TRAINING [id number] Diagnos is: ICD-10- CM J44.9 Chronic obstruc tive pulmona ry disease , unspeci fied
MAGGIE EVANS 02/19 [facility] [place] [facility] Outpatient Encounter [id number] 03/03 [place] [facility] [place] [facility] Outpatient Encounter [id number] Diagnos is: ICD-10- CM R26.9 Unspeci fied abnorma lities of gait and mobilit y
NANCY HOWARD 03/04 [facility] [place] [facility] Outpatient Encounter [id number] 03/06 [place] [facility] [place] [facility] Outpatient Encounter [id number] 03/23 [place] [facility] [place] [facility] Outpatient Encounter [id number] 03/26 [place] [facility] TARGETED CASE MANAGEMENT [id number] Chani PERAZA L 05/04 [facility] HC PRO PHONE CALL 5-10 MIN [id number] Diagnos is: ICD-10- CM N18.6 End stage renal disease
FADUMO HERNANDEZ K 05/05 [facility] TARGETED CASE MANAGEMENT [id number] Chani PERAZA L 05/05 [facility] TARGETED CASE MANAGEMENT [id number] Chani PERAZA L 05/13 [facility] CASE MANAGEMENT [id number] JENNIFER THAPA CCA 05/13 [facility] Outpatient Encounter [id number] 05/13 [facility] Outpatient Encounter [id number] GUADALUPE ACOSTA 05/14 [facility] CASE MANAGEMENT [id number] Chani PERAZA L 05/19 [facility] Outpatient Encounter [id number] 05/19 [facility] Outpatient Encounter [id number] Chani PERAZA L 05/27 [facility] Outpatient Encounter [id number] 05/28 [facility] Outpatient Encounter [id number] 05/28 [facility] Outpatient Encounter [id number] ANSELMO ARMSTRONG 06/02 [facility] Outpatient Encounter [id number] 06/[facility] En[facility] [id number] DARRELL LOO 06/17 [facility] Outpatient Encounter [id number] 06/18 [facility] Outpatient Encounter [id number] Jared RUVALCABA 06/25 [facility] HEARING A[facility] CHECK BOTH EARS [id number] Diagnos is: ICD-10- CM Z46.1 Encount er for fitting and adjustm ent of hearing aid<br/ > DANELLE MAYFIELD Stefany 07/23 [facility] PRO PHONE CALL 5-10 MIN [id number] Diagnos is: ICD-10- CM 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
DAYANNA CRAWFORD 10/14 [facility] Outpatient Encounter [id number] 10/23 [facility] CONFORMITY EVALUATION [id number] Diagnos is: ICD-10- CM H90.3 Sensori neural hearing loss, bilater al
DAYANNA CRAWFORD 11/16 [facility] Outpatient Encounter [id number] 12/30 [facility] OFFICE O/P EST HI 40 MIN [id number] Diagnos is: ICD-10- CM M79.646 Pain in unspeci fied finger( s)
[place] MATHEWS H 12/30 [place] [place] [facility] Outpatient Encounter [id number] DEBRA PINTO 01/20 [place] [facility] [place] [facility] Outpatient Encounter [id number] 02/10 [place] [facility] [place] [facility] Outpatient Encounter [id number] DEBRA PINTO 02/14 [place] [facility] Outpatient Encounter [id number] KALYANI COPELAND H 02/23 [place] [facility] SELF CARE MNGMENT TRAINING [id number] Diagnos is: ICD-10- CM R26.89 Other abnorma lities of gait and mobilit y
RASHEL HAYES 04/07 [facility] SELF CARE MNGMENT TRAINING [phone] Diagnos is: ICD-10- CM R26.89 Other abnorma lities of gait and mobilit y
RASHEL HAYES 04/28 [place] [facility] SELF CARE MNGMENT TRAINING [phone] Diagnos is: ICD-10- CM R26.89 Other abnorma lities of gait and mobilit y
RASHEL HAYES 05/17 [place] [facility] [place] [facility] Outpatient Encounter [id number] 06/06 [place] [facility] [place] [facility] Outpatient Encounter [id number] 06/14 [place] [facility] Outpatient Encounter [id number] 06/20 [place] [facility] [place] [facility] Outpatient Encounter [id number] 06/20 [place] [facility] [facility] [place] [facility] NQHP OL DIG ASSMT&MGMT 5-10 [id number] Diagnos is: ICD-10- CM I25.10 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 Social History Type Response Date Comment Sourc e Tobacco [place] status [place] [facility] [facility] of [facility] OR [facility]2023 [facility] History of tobacco use [place] FORMER US[place] 12/18/2022 [facility] History of tobacco use [place]-TO[place] FORMER USER 11/05/2021 [facility] History of tobacco use [place]-TOBACCO QUIT 1 5 YRS OR MORE 07/28/2019 [facility] History of tobacco use [place]-TOBACCO QUIT 1 5 YRS OR MORE 12/10/2018 [facility] History of tobacco use [place]-TO[place]ACCO FORMER USER 02/25/2018 [facility] History [...] List of future care activities from [facility] facilities. Additional future care activities may be listed in the Assessment and Plan section. Date/Time Care Activity Care Activity Detail Facili ty 07/26/2024 AMBULATORY - REHAB MEDICINE AMBULATORY - REHAB MEDICINE [facility] Advance Directives List of completed, amended, or rescinded Advance Directives on record at Department [facility] facilities. An actual copy of the Directive is not included. Date Advance Directive Provider Source 05/23/2003 ADVANCE DIRECTIVE [facility]
--- OUTSIDE RECORDS SUMMARY | 2024-07-01 17:34 | XMS_ITS | Encounter Summary ---
Author Organization [facility] Address [address] [place] [address] Care Team Providers Care Manager Project Name Role Phone Unavailable Primary Care Provider Unavailabl e Reason for Visit * Reason Onset Date Comments Hospital Discharge 06/09/2024 [facility] Encounter Details Date Type Department Care Team (Late st Contact Info) Description 06/09/2024 Telephone [facility] [address] [place] [address] Nehal Meredith, RN [address] [place] [address] Hospital Discharge ([facility]) Social History Tobacco Use Types Packs/Day Years [...] 06/09/2024 12:17 PM CST 06/09/2024 Patient Name: Koery Mackay Patient : 1940 Patient Address: [address] [place] [id number] Patient Medications All medications were reviewed with the patient based on the discharge summary dated 06/08/2024 from [facility]. Fluid Assessment: Do you feel you had an appropriate amount of fluid removed/is your fluid status appropriate? Yes. thinks they sometimes remove too much fluid. She notified the dialysis nurse Do you feel short of breath? No Do you have any other symptoms (cramps/dizziness)? Reports leg cramps Barriers to Care: questions if Midodrine will be a mcfp medication. Advised that it will depend how [...] will contact the PCP. Confirm dialysis location: [facility] Scheduled date and time: MWF [...]
--- OUTSIDE RECORDS SUMMARY | 2024-07-01 17:34 | XMS_ITS | Encounter Summary ---
Author Organization [facility] Address [address] [place] [address] Care Team Providers Care Duco Polisher Name Role Phone Unavailable Primary Care Provider Unavailabl e Encounter Details Date Type Department Care Team (Late st Contact Info) Description 06/20/2024 TCM in Dialysis Clinic [facility] [address] [place] [address] Darren Youssef MD [address] [place] [address] Social History Tobacco Use Types Packs/Day Years Used Date Smoking Tobacco: Never Assessed Sex and Gender Information Value Date Recorded Sex Assigned at Not on file Legal Sex Male 7:06 PM EDT Gender Identity Not on file Sexual Orientation Not on file documented as of this encounter Progress Notes * Darren Youssef MD - 06/20/2024 12:00 AM CST Patient: Korey Mackay : 1940 Note Type: Dialysis TCM Service Date: 06/20/2024 The patient was seen for a umtv-ak-vffl visit as part of Transitional Care Management services. Attending Master Planner: DARREN YOUSSEF Dialysis Location: [facility] Schedule: Shift: 2 INTERACTIVE CONTACT Contact [...] medication orders reviewed - no changes. Current [facility] Outpatient Medications albuterol sulfate 90 mcg/actuation HFA [...] capsule by mouth once a day. Dialyvite [phone] qe-jh-kru-mg tablet Take 1 tablet by mouth every [...] 97.4*F Current Dialysis Vitals BP Sit: 151/69 AP/MATCH UP WORKER: -160/220 Pulse: 69 CARE COORDINATION Post-discharge follow-up appointments reviewed with the patient. EDUCATION Education relevant to the discharge diagnosis provided to the patient or caregiver IMPRESSION & PLAN COMMENTS: Stable after hospital stay s/p partial amputation of toe Lower EDW Lung mass vs inflammatory change, repeat CT 2 months by PCP suggested. PCP post- discharge visit completed VISIT DIAGNOSES CPT Code 38173 - High complexity, seen 8-14 days post discharge or moderate complexity, seen [id number] days of discharge. N18.6 End stage renal [...]
--- OUTSIDE RECORDS SUMMARY | 2024-07-01 17:35 | XMS_ITS | Clinical Summary ---
Author Organization [facility] Facility Address [address] [facility] [address] [place] [address] Care Team Providers Care Tavern Keeper Name Role Phone Unavailable Primary Care Provider [...] Description 06/29/2024 Orders Only [facility] [address] [place] [phone] Darren Youssef MD 06/22/2024 Orders Only [facility] [address] [place] [address] Darren Youssef MD 06/20/2024 Orders Only [facility] [address] [place] [phone] Darren Youssef MD 06/20/2024 Treatment [facility] [address] [place] [phone] Darren Youssef MD 06/20/2024 TCM in Dialysis Clinic [facility] [address] [place] [address] Darren Youssef MD 06/15/2024 Orders [facility] [address] [place] [phone] Darren Youssef MD 06/10/2024 Orders Only [facility] [address] [place] [phone] Darren Youssef MD 06/09/2024 Telephone [facility] [address] [place] [address] Nehal Meredith, FRANCIA Hospital Discharge ([facility]) 05/18/2024 Orders Only [facility] [address] [place] [phone] Darren Youssef MD 05/11/2024 Orders Only [facility] [address] [place] [address] Darren Youssef MD 05/09/2024 Treatment [facility] [address] [place] [address] 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, BSW-CRACKING AND FANNING MACHINE OPERATOR 05/04/2024 Orders Only [facility] [place] [address] [place] [phone] Darren Youssef MD 04/27/2024 Orders Only [facility] [place] [address] [place] [phone] Darren Youssef MD 04/22/2024 Treatment [facility] [address] [place] [address] Darren Youssef MD 04/20/2024 Orders Only [facility] [address] [place] [address] Darren Youssef MD 04/13/2024 Orders Only [facility] [address] [place] [address] Darren Youssef MD 04/13/2024 Treatment [facility] [address] [place] [address] 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 Lazaro, BSW-CRACKING AND FANNING MACHINE OPERATOR 04/06/2024 Orders Only [facility] [address] [place] [address] Darren Youssef MD 04/04/2024 Treatment [facility] [address] [place] [address] Darren Youssef MD from Last 3 Months [...] of11 resultswithin the time period is included. [facility] Hemoglobin 8.2(L) 14.0 - 18.0 g/dL [facility] Hemoglobin x 3 24.6(L) 42.0 - 54.0 % [facility] 06/29/2024 06/30/2024 2:1 7 AM FINANCIAL ASSISTANCE ADVISOR Narrative [facility] - 06/30/2024 Unless otherwise specified, test(s) performed at: [facility], [address] [place] [address], [place] [address] HEALTH ADMINISTRATOR: Rojas Kirkland M.D., Ph.D For any questions, please call customer service at FREQUENCY:OTHER Resulting Agency Comment Specimen source: Blood us Darren Youssef MD LAB BLOOD ORDERABLES Final Re sult [facility] See order comments or contact performing lab Unknown, [place] * [facility] (06/20/2024) Only the most recent of4 resultswithin the time period is included. [facility] % Urea Reduction 71 65 - 80 % [facility] 06/20/2024 06/21/2024 10: 11 AM FINANCIAL ASSISTANCE ADVISOR Narrative [facility] - 06/21/2024 Unless otherwise specified, test(s) performed at: [facility], [address] [place] [address], [place] [id number] HEALTH ADMINISTRATOR: Rojas Kirkland M.D., Ph.D For any questions, please call customer service at FREQUENCY:OTHER Resulting Agency Comment Specimen source: Plasma Darren Youssef MD LAB BLOOD ORDERABLES Final Re sult Performing Organization Address [facility] Co de Phone Number [facility] See order comments or contact performing lab Unknown, [place] * (ABNORMAL) POST CHEMISTRY (06/20/2024) Only the most recent of4 resultswithin the time period is included. BUN Post Dialysis 22(H) 6 - 19 mg/dL [facility] 06/20/2024 06/21/2024 10: 11 AM FINANCIAL ASSISTANCE ADVISOR Narrative [facility] - 06/21/2024 Unless otherwise specified, test(s) performed at: [facility], [address] [place] [address], [place] [address] HEALTH ADMINISTRATOR: Rojas Kirkland M.D., Ph.D For any questions, please call customer service at FREQUENCY:OTHER Resulting Agency Comment Specimen source: Plasma Darren Youssef MD LAB BLOOD ORDERABLES Final Re sult Performing Organization Address [facility]/ZIP Co de Phone Number [facility] See order comments or contact performing lab Unknown, [place] * (ABNORMAL) [facility] (06/20/2024) Only the most recent of5 resultswithin the time period is included. BUN 76(H) 6 - 19 mg/dL [facility] 06/20/2024 06/21/2024 1:4 4 PM FINANCIAL ASSISTANCE ADVISOR Narrative [facility] - 06/21/2024 Unless otherwise specified, test(s) performed at: [facility], [address] [place] [address], [place] [address] HEALTH ADMINISTRATOR: Rojas Kirkland M.D., Ph.D For any questions, please call customer service at FREQUENCY:OTHER Resulting Agency Comment Specimen source: Serum Darren Youssef MD LAB BLOOD ORDERABLES Final Re sult [facility] See order comments or contact performing lab Unknown, [place] * [facility] Lab Results (06/20/2024) Only the most recent of4 resultswithin the time period is included. Pathologist [facility] spKt/V Got 1.43 [facility] PCR 75.47 [facility] Center spKt/V (Daugirdas II) 1.43 [facility] eKt/V ([place]) 1.23 [facility] nPCR_HD 1.04 [facility] eKt/V Gotch 1.21 [facility] [place] eNPCR 0.96 [facility] eKdrt/V 1.21 [facility] WSTDKT/V 2.4 [facility] Center 06/20/2024 06/20/2024 Result [facility] Ordering Provider LAB BLOOD ORDERABLES Final Result Performing Organization Address City/[facility]/ZIP Co de Phone Number [facility] Contact Performing lab Unknown, [place] * IMMUNO CHEMISTRY (06/15/2024) Only the most recent of4 resultswithin the time period is included. Pathologist [facility] Hep B Surface Ag Negative Negative [facility] 06/15/2024 06/16/2024 10: 07 AM FINANCIAL ASSISTANCE ADVISOR Narrative [facility] - 06/16/2024 Unless otherwise specified, test(s) performed at: [facility], [address] [place] [address], [place] [address] HEALTH ADMINISTRATOR: Rojas Kirkland M.D., Ph.D For any questions, please call customer service at FREQUENCY:MONTHLY Resulting Agency Comment Specimen source: Plasma Darren Youssef MD LAB BLOOD ORDERABLES Final Re sult Performing Organization Address [facility]/ZIP Co de Phone Number [facility] See order comments or contact performing lab Unknown, [place] * SPECIAL CHEMISTRY (04/13/2024) Pathologist [facility] Vitamin D, 25-OH, Total 56.9 30.0 - 100.0 ng/mL [facility] Comment: Please Note: Effective June 16, 2021, the methodology for this test has changed to the [employer] method 04/13/2024 04/14/2024 5:5 9 PM FINANCIAL ASSISTANCE ADVISOR Narrative Resulting Agency Comment Specimen source: Serum Darren Youssef MD LAB BLOOD BANK TEST ORDERABLE S Final Result Performing Organization Address [facility] de Phone Number [facility] See order comments or contact performing lab Unknown, [place] * TRACE ELEMENTS (04/13/2024) [facility] Aluminum 8 0 - 10 mcg/L [facility] Comment: This test was developed and its performance characteristics determined by [facility]. It has not been cleared or approved by the FDA. The laboratory is regulated under CLIA as qualified to perform high complexity testing. This test is used for clinical purposes. It should not be regarded as investigational or for research. 04/13/2024 04/14/2024 8:1 8 AM FINANCIAL ASSISTANCE ADVISOR Narrative [facility] - 04/15/2024 Unless otherwise specified, test(s) performed at: [facility], [address] [place] [address], [place] [id number] HEALTH ADMINISTRATOR: Rojas Kirkland M.D., Ph.D For any questions, please call customer service at FREQUENCY:MONTHLY Resulting Agency Comment Specimen source: Serum Darren Youssef MD LAB BLOOD ORDERABLES Final Re sult Performing Organization Address [facility] Co de Phone Number [facility] See order comments or contact performing lab Unknown, [place] * (ABNORMAL) Hemoglobin A1c (09/24/2020 11:00 AM CDT) [facility] Hemoglobin A1C 5.8(H) 0.0 - 5.6 %A1c [facility] 09/24/2020 11:0 0 AM CDT 09/25/2020 12:06 PM CDT us Checo Sky MD LAB BLOOD ORDERABLES Edited Resu lt - Final ADIN RAYO K[facility] from Last 3 Months or Most Recently Relevant to Health Maintenance Insurance [facility] MEDICARE
== END 2024-07-01 17:39 | disposition home or self-care (01) ==
PROVIDERS: Emergency Provider Student in an Organized Health Care Education/Training Program; PCP Family Medicine
DX: T82.838A Hemorrhage due to vascular prosthetic devices, implants and grafts, initial encounter (principal)
CPT/HCPCS: 99281; 99282

== ENCOUNTER 2024-07-05 11:01 | Emergency (ER) | payer MEDICARE, OTHER, SELFPAY ==
[2024-07-05] VITALS (23 sets, daily range): BP systolic 117–142; BP diastolic 53–72; PULSE 68–145; RESP 16; TEMP 36.4; O2SAT 80–95; BMI 25.8
--- NOTE | 2024-07-05 15:17 | ED.GENADULT ---
HPI - General Adult General Time Seen by Provider: 15:17 Date Seen: 07/05/24 Chief complaint: Weakness Stated complaint: Short of breath, lethargy, vertigo Time Seen by Provider: 07/05/24 14:42 Source: patient and RN notes reviewed Mode of arrival: ambulatory Limitations: no limitations History of Present Illness HPI narrative: Sheryl is an 84-year-old male coming into the ER accompanied by his with multitude of concerns. He just is not feeling well. He states he was hospitalized at [facility] with pneumonia. He notes he cannot sleep. They think he has a pinched nerve in his right neck, gets pain behind the right shoulder and goes up into the neck. His is wondering if he could get a steroid injection in the neck. We did review that that is not an ED procedure, that is a specialty procedure. She is not sure if they have done any pain meds or prednisone. She states she has just been using Tylenol and topical medicines. They have done Voltaren gel, some sosd-zzr-iyzhffu medicines. He also notes when he goes to lay down particularly on the right side a rolling over to the right side, the bed will spin terribly about 5 times and then stop. This is been happening frequently. Sitting up usually stops this. He feels pressure and some frontal headache. His vision has been progressively worsening, his has been putting extra Restasis eyedrops in. No current fevers that they know of. He has been using his inhaler more frequently, is waking up short of breath at night. He also will have a vague sense of some pressure in his upper chest below the neck sometimes. He is known to have bilateral carotid stenosis that his was told the risks of the surgery outweigh the benefits. She also states he was told he had a silent heart attack sometime between 2021 and an echo or test that he had done within the last year. He has been complaining of bilateral lower leg pain, this is just globally. It does not sound like it is muscle cramps. Related Data Home Medications ?Medication ?Instructions ?Recorded ?Confirmed acetaminophen 650 mg 650 mg PO Q8H PRN 12/27/22 05/24/24 tablet,extended release (Tylenol Arthritis Pain) aspirin 81 mg capsule 81 mg PO DAILY 12/27/22 05/23/24 coenzyme Q10 100 mg capsule (Co 100 mg PO DAILY 12/27/22 05/24/24 Q-10) guaifenesin 100 mg/5 mL oral liquid 100 mg PO Q4H PRN coughing 12/27/22 05/24/24 insulin aspart U-100 100 unit/mL 5 unit subcut TIDWM 12/27/22 05/23/24 (3 mL) subcutaneous pen (Novolog FlexPen U-100 Insulin aspart) loratadine 10 mg tablet (Claritin) 10 mg PO DAILY 12/27/22 05/24/24 montelukast 10 mg tablet 10 mg PO HS 12/27/22 05/24/24 (Singulair) nitroglycerin 0.4 mg sublingual 0.4 mg sublingual Q5M PRN 12/27/22 05/24/24 tablet (Nitrostat) sennosides 8.6 mg capsule (senna) 8.6 - 17.2 mg PO BID 12/27/22 05/24/24 B complex 11-folic acid 1 mg-C 100 1 tab PO BID 10/06/23 05/24/24 mg-biotin 300 mcg-zinc 50 mg tablet (Dialyvite) albuterol sulfate 90 mcg/actuation 2 inh inhalation Q4H PRN 10/06/23 05/24/24 aerosol inhaler (Ventolin HFA) cholecalciferol (vitamin D3) 50 50 mcg PO DAILY 10/06/23 05/24/24 mcg (2,000 unit) capsule cyclosporine 0.05 % eye drops in a 1 drp ophthalmic (eye) Q12H 10/06/23 05/24/24 dropperette (Restasis) fluticasone propionate 50 1 spray intranasal DAILY PRN 10/06/23 05/23/24 mcg/actuation nasal spray,suspension (24 Hour Allergy Relief) insulin glargine 100 unit/mL (3 18 unit subcut HS 10/06/23 05/24/24 mL) subcutaneous pen (Lantus Solostar U-100 Insulin) krill 1,000 mg-omega-3 230 mg-dha 1 cap PO DAILY 10/06/23 05/24/24 60 ke-psu-atyteeydv-astaxan capsule (MegaRed Aurora-3 Krill Oil) pantoprazole 40 mg tablet,delayed 40 mg PO DAILY 10/06/23 05/24/24 release pravastatin 80 mg tablet 80 mg PO HS 10/06/23 05/24/24 vitamin E 268 mg (400 unit) capsule 268 mg PO DAILY 10/06/23 05/24/24 clopidogrel 75 mg tablet 75 mg PO DAILY 05/24/24 05/24/24 diphenhydramine HCl 25 mg capsule 25 mg PO Q4H PRN 05/24/24 05/24/24 (Aler-Cap) fluticasone 100 mcg-salmeterol 50 1 inh inhalation BID 05/24/24 05/24/24 mcg/dose blistr powdr for inhalation (Wixela Inhub) hydrocortisone 2.5 % topical cream 1 applic topical BID PRN 05/24/24 05/24/24 levothyroxine 175 mcg capsule 175 mcg PO DAILY 05/24/24 05/24/24 magnesium hydroxide 400 mg/5 mL 30 ml PO DAILY PRN 05/24/24 05/24/24 oral suspension (Dulcolax (magnesium hydroxide)) methyl salicylate 15 %-menthol 10 1 applic topical TID PRN 05/24/24 05/24/24 % topical cream (Analgesic Odanah (m.salic-menthol)) tiotropium bromide 18 mcg capsule 1 cap inhalation DAILY 05/24/24 05/24/24 with inhalation device (Spiriva with HandiHaler) Previous Rx's ?Medication ?Instructions ?Recorded prednisone 20 mg tablet 20 mg PO DAILY #7 tabs 07/05/24 Allergies Allergy/AdvReac Type Severity Reaction Status Date / Time doxycycline Allergy Unknown Verified 05/23/24 16:10 atorvastatin (From Lipitor) Allergy Verified 05/23/24 16:10 hydrocodone Allergy Verified 10/06/23 07:34 lisinopril Allergy Verified 05/23/24 16:10 metoclopramide (From Reglan) Allergy Verified 05/23/24 16:10 omeprazole Allergy Verified 05/23/24 16:10 Review of Systems Status of ROS: Reports: 6 or more systems reviewed and unremarkable except as noted in History and below [facility] Medical History Frailty syndrome in geriatric patient ?R54 - Age-related physical debility (ICD-10) Coronary artery disease ?I25.10 - Atherosclerotic heart disease of [place] coronary artery without angina pectoris (ICD-10) Recurrent UTI ?N39.0 - Urinary tract infection, site not specified (ICD-10) Secondary hyperparathyroidism (of renal origin) ?N25.81 - Secondary hyperparathyroidism of renal origin (ICD-10) Pneumonia due to COVID-19 virus ?U07.1 - COVID-19 (ICD-10) ?J12.82 - Pneumonia due to coronavirus disease 2019 (ICD-10) Severe obesity ?E66.01 - Morbid (severe) obesity due to excess calories (ICD-10) Mobitz type 1 second degree AV block ?I44.1 - Atrioventricular block, second degree (ICD-10) Calculus of gallbladder without cholecystitis ?K80.20 - Calculus of gallbladder without cholecystitis without obstruction (ICD-10) Anemia of chronic renal failure ?N18.9 - Chronic kidney disease, unspecified (ICD-10) ?D63.1 - Anemia in chronic kidney disease (ICD-10) Allergic rhinitis ?J30.9 - Allergic rhinitis, unspecified (ICD-10) DVT (deep venous thrombosis) ?I82.409 - Acute embolism and thrombosis of unspecified deep veins of unspecified lower extremity (ICD-10) Hypothyroidism ?E03.9 - Hypothyroidism, unspecified (ICD-10) Pulmonary emphysema ?J43.9 - Emphysema, unspecified (ICD-10) Obstructive sleep apnea ?G47.33 - Obstructive sleep apnea (adult) (pediatric) (ICD-10) Colon polyp ?K63.5 - Polyp of colon (ICD-10) Detached retina, left ?H33.22 - Serous retinal detachment, left eye (ICD-10) GERD with esophagitis ?K21.00 - Gastro-esophageal reflux disease with esophagitis, without bleeding (ICD-10) Hypertension ?I10 - Essential (primary) hypertension (ICD-10) Diabetic foot ulcer ?E11.621 - Type 2 diabetes mellitus with foot ulcer (ICD-10) ?L97.509 - Non-pressure chronic ulcer of other part of unspecified foot with unspecified severity (ICD-10) Charcot foot due to diabetes mellitus ?E11.610 - Type 2 diabetes mellitus with diabetic neuropathic arthropathy (ICD-10) Pulmonary asbestosis ?J61 - Pneumoconiosis due to asbestos and other mineral fibers (ICD-10) Myocardial infarction ?I21.9 - Acute myocardial infarction, unspecified (ICD-10) Hypercholesterolemia ?E78.00 - Pure hypercholesterolemia, unspecified (ICD-10) End stage renal disease on dialysis ?N18.6 - End stage renal disease (ICD-10) ?Z99.2 - Dependence on renal dialysis (ICD-10) DM (diabetes mellitus), type 2 ?E11.9 - Type 2 diabetes mellitus without complications (ICD-10) COPD (chronic obstructive pulmonary disease) ?J44.9 - Chronic obstructive pulmonary disease, unspecified (ICD-10) Surgical History S/P ORIF (open reduction internal fixation) fracture ?Z98.890 - Other specified postprocedural states (ICD-10) ?Z87.81 - Personal history of (healed) traumatic fracture (ICD-10) S/P CABG x 4 ?Z95.1 - Presence of aortocoronary bypass graft (ICD-10) Family History Brother Leukemia Mother Oral cancer Father Alzheimers disease Social History Narrative: 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 What is your current living situation?: I presently have a place to live Problems where you live: no known problems Problems where you live details: n/a In the past 12 months, utilities in danger of being shut off: no In past 12 months, lack of transportation kept you from medical appts, meetings, work, or getting things needed for daily living: no In the past 12 mos, have been you worried that your food would run out before you had money to buy more?: never true In the past 12 mos, the food you bought just didn't last and you didn't have money to buy more?: never true Smoking Status: Former smoker Do you use any of these nicotine containing products: None Second hand tobacco smoke exposure: No How often do you have a drink containing alcohol: 2-4 times a month How often do you have six or more drinks on one occasion: Never AUDIT-C Alcohol total score: 2 Non-prescribed substance use: denies use How often does anyone, including family, friends and others, physically hurt you: never How often does anyone, including family, friends and others, insult or talk down to you: never How often does anyone, including family, friends and others, threaten you with harm: never How often does anyone, including family, friends and others, scream or curse at you: never service: No Exam Const: Vital Signs, click to edit/add: Vital Signs - 24 hr 07/05/24 11:18 07/05/24 14:59 07/05/24 15:00 Temperature 97.5 F L Pulse Rate 71 74 Pulse Rate [Pulse Oximeter] 75 Respiratory Rate 16 Blood Pressure 142/69 H Blood Pressure [Ri ght Upper Arm] 138/57 L Pulse Oximetry 93 94 94 Oxygen Delivery [facility] Room Air 07/05/24 15:02 07/05/24 15:15 07/05/24 15:16 Temperature Pulse Rate 77 76 79 Pulse Rate [Pulse Oximeter] Respiratory Rate Blood Pressure 137/68 137/72 Blood Pressure [Ri ght Upper Arm] Pulse Oximetry 94 94 90 Oxygen Delivery [facility] 07/05/24 15:30 07/05/24 16:04 07/05/24 16:05 Temperature Pulse Rate 77 68 71 Pulse Rate [Pulse Oximeter] Respiratory Rate Blood Pressure 138/71 Blood Pressure [Ri ght Upper Arm] Pulse Oximetry 80 L 94 95 Oxygen Delivery [facility] 07/05/24 16:17 07/05/24 16:19 07/05/24 16:30 Temperature Pulse Rate 145 H 70 71 Pulse Rate [Pulse Oximeter] Respiratory Rate Blood Pressure 123/53 L Blood Pressure [Ri ght Upper Arm] Pulse Oximetry 82 L 95 90 Oxygen Delivery [facility] 07/05/24 16:31 07/05/24 16:45 07/05/24 16:46 Temperature Pulse Rate 71 72 71 Pulse Rate [Pulse Oximeter] Respiratory Rate Blood Pressure 117/67 127/57 L Blood Pressure [Ri ght Upper Arm] Pulse Oximetry 89 93 92 Oxygen Delivery [facility] 07/05/24 17:00 07/05/24 17:02 07/05/24 17:15 Temperature Pulse Rate 71 71 Pulse Rate [Pulse Oximeter] Respiratory Rate Blood Pressure 124/59 L Blood Pressure [Ri ght Upper Arm] Pulse Oximetry 91 95 Oxygen Delivery [facility] 07/05/24 17:16 07/05/24 17:30 07/05/24 17:32 Temperature Pulse Rate 71 77 74 Pulse Rate [Pulse Oximeter] Respiratory Rate Blood Pressure 130/60 133/65 Blood Pressure [Ri ght Upper Arm] Pulse Oximetry 95 94 94 Oxygen Delivery [facility] ag[facility] 07/05/24 18:02 07/05/24 18:17 Temperature Pulse Rate Pulse Rate [Pulse Oximeter] Respiratory Rate Blood Pressure 142/68 H 136/65 Blood Pressure [Ri ght Upper Arm] Pulse Oximetry Oxygen Delivery Nc franck Nair is an 84-year-old male lying on his right side in the bed. He is hard of hearing but is alert, interactive, no apparent distress, very pleasant. Pupils equal round reactive, sclera clear. Symmetrical facial function. He has no palpable masses or nodules in his neck, no midline tenderness. Lungs actually sound clear, he is lying on his right side so listening while in this position. Do not notice any tachypnea. CV regular rate and rhythm, systolic murmur heard, normal S1-S2. Abdomen is soft, nondistended, nontender, do not feel any masses at this point. He has got stocking at on left foot. There is some pretibial edema but nothing significant. He has no swelling about his knees. No concerning skin changes visualized on the lower extremities. Documenting provider has reviewed patient's vital signs: yes Course Course ED Course: Patient has a multitude of symptoms, will check triple viral swab to ensure that he is not having myalgias from developing influenza or COVID, etc.. Will recheck a chest x-ray. Will get full complement of labs. Complaining of some potential headache type symptoms on arrival where he just feels some pressure in his head or something of that nature. He talks about this having him up at night as well as the neck and shoulder, some coughing, some shortness of breath. He reportedly has some right radiculopathy. Talking to him, I do wonder about polymyalgia rheumatica. Will get a sed rate. He had some recent pneumonia, need to consider infectious etiology or recurrent pneumonia. He is talking about vertigo which most definitely sounds positional, lying down and turning his head to the right. He endorses about 5 significant spinning episodes and then abates. Will be obtaining basic head CT but doubtful that this is indicative of [employer] vascular disease. Even if it is, he has known bilateral carotid stenosis and per his is not a surgical candidate. Will consider talking to Neurology if this ends up being more of a concern or heading towards stroke direction further. He has some any other symptoms that need addressing and his vertigo symptoms seem to be so suggestive of peripheral disease. Reevaluation(s) Time of Reevaluation #1: 18:37 Reevaluation #1: Have reviewed CT findings with them. He has a spiculated lesion, has a strong asbestos history, this has been seen before. It does sound like they are aware of this. He has the left pleural effusion. He does have dialysis tomorrow. He has been hemodynamically stable here. Reviewed my suspicion of possible polymyalgia rheumatica. His notes that he has complained of lower leg pain but since coming out of the hospital, he has been complaining of upper thigh pain as well. He has this right-sided posterior shoulder pain that goes up into his neck. He has been complaining of some low back pain. He has been uncomfortable, awakening at night. We did discuss temporal arteritis and association with blindness of untreated. Will initiate 20 mg of prednisone tonight, will give him a lidocaine patch for the posterior shoulder to see if that helps. Went over risks and benefits of prednisone. I do think treating with prednisone may help twofold if the neck is from a radiculopathy. His sed rate is elevated at 71 and do think that PMR certainly could be a diagnostic possibility. Discussed with his difficulty of diagnosing this and truly is potentially a diagnosis of exclusion. I am finding no other sign of infection at this time. His pneumonia has resolved on his chest x-ray. I do not think he requires emergent hospitalization for dialysis, seems stable to be able to go to his dialysis run tomorrow. Vital Signs Vital signs: Initial Vital Signs Temperature 97.5 F L 07/05/24 11:18 Temperature Source Temporal Artery Scan 07/05/24 11:18 Pulse Rate 75 07/05/24 11:18 Respiratory Rate 16 07/05/24 11:18 Blood Pressure 138/57 L 07/05/24 11:18 Blood Pressure Mean 84 07/05/24 11:18 Blood Pressure Position Sitting 07/05/24 11:18 Pulse Oximetry 93 07/05/24 11:18 Oxygen Delivery Method Room Air 07/05/24 11:18 Vital Signs Temperature 97.5 F L 07/05/24 11:18 Pulse Rate 75 07/05/24 11:18 Respiratory Rate 16 07/05/24 11:18 Blood Pressure 138/57 L 07/05/24 11:18 Pulse Oximetry 93 07/05/24 11:18 Oxygen Delivery Method Room Air 07/05/24 11:18 Temperature 97.5 F L 07/05/24 11:18 Pulse Rate 74 07/05/24 17:32 Respiratory Rate 16 07/05/24 11:18 Blood Pressure 136/65 07/05/24 18:17 Pulse Oximetry 94 07/05/24 17:32 Oxygen Delivery Method Room Air 07/05/24 11:18 Medications Administered Medications: Discontinued Medications Generic Name Dose Route Start Last Admin Trade Name Christopher PRN Reason Stop Dose Admin Lidocaine 1 patch 07/05/24 18:36 07/05/24 18:57 Lidocaine 5% Patch TRANSDERMA 07/05/24 18:37 1 patch ONCE ONE Administration Protocol Prednisone 20 mg 07/05/24 18:36 07/05/24 18:57 Prednisone 10 Mg Tablet PO 07/05/24 18:37 20 mg ONCE ONE Administration Medical Decision Making Lab Data Lab results reviewed: Yes I reviewed the patient's lab results Labs: Lab Results 07/05/24 Range/Units 16:06 WBC 4.70 (4.50-11.00) K/uL RBC 2.57 L (4.30-5.90) m/uL Hgb 8.3 L (13.5-17.5) gm/dL Hct 25.6 L (37.0-53.0) % MCV 100 (80-100) fL MCH 32 (26-34) pg MCHC 32 (32-36) gm/dL RDW Coeff of Jordy 16.0 H (11.5-15.5) % Plt Count 151 (140-440) K/uL Neut % (Auto) 72.3 H (42.0-72.0) % Lymph % (Auto) 10.4 L (20-44) % [place] % (Auto) 12.8 H (0.0-11.0) % Eos % (Auto) 3.0 (0.0-7.0) % Baso % (Auto) 0.6 (0.0-3.0) % Neut # (Auto) 3.40 (1.7-7.0) K/uL Lymph # (Auto) 0.50 L (0.90-2.90) K/uL [place] # (Auto) 0.60 (0.00-0.90) K/UL Eos # (Auto) 0.14 (0.00-0.50) K/uL Baso # (Auto) 0.03 (0.00-0.30) K/uL Abs Immat Gran (auto) 0.04 (0.00-0.30) K/uL Imm/Tot Granulo (auto) 0.9 % ESR 71 H (2-15) mm/hr VBG pH 7.420 (7.32-7.43) VBG pCO2 47 (40-50) mmHG VBG pO2 < 30.1 (25-47) mmHG VBG HCO3 30 H (21-28) mmol/L Sodium 130 L (135-149) mmol/L Potassium 4.6 (3.6-5.1) mmol/L Chloride 89 L (96-114) mmol/L Carbon Dioxide 28 (20-32) mmol/L Anion Gap 13 (7-15) mEq/L BUN 60 H (7-30) mg/dL Creatinine 4.5 H (0.5-1.5) mg/dL Estimated Creat Clear 12.93 Estimated GFR 12 ml/min Glucose 145 H (60-115) mg/dL Calcium 9.3 (8.4-10.6) mg/dL Magnesium 2.0 (1.5-2.6) mg/dL Total Bilirubin 0.7 (0.1-1.5) mg/dL AST 23 (12-35) U/L ALT 14 (4-50) U/L Alkaline Phosphatase 116 (40-150) U/L Troponin I < 0.01 L (0.01-0.04) ng/mL C-Reactive Protein 3.1 H (0.5-1.0) mg/dL NT-Pro-B Natriuret Pep 24580 pg/mL Total Protein 7.8 (6.0-8.3) g/dL Albumin 4.1 (3.3-5.0) g/dL SARS-CoV-2 (PCR) Negative SARS-CoV-2 (Negative) Influenza Type A (PCR) Negative PCR FLU A (Negative) Influenza Type B (PCR) Negative PCR FLU B (Negative) RSV (PCR) Negative PCR RSV (Negative) Imaging Data CT scan - head: Attestation: I have reviewed the pertinent imaging results. Radiologist's impression: Patient: SHERYL SERRANO Facility:?[facility] Patient ID:?[id number] Site Patient ID:?[id number]. Site :?[id number] Study:?CT-Head WITHOUT-07/05/2024 3:47:06 PM Ordering Physician:?Yao Porras Final Report: INDICATION: Vertigo. TECHNIQUE: Noncontrast CT of the head with multiplanar reconstruction utilizing bone and soft tissue algorithms. COMPARISON: CT head dated 12/27/2022. FINDINGS: No acute intracranial hemorrhage. Scattered hypoattenuation within the supratentorial white matter, most conspicuous in the left parietal region, nonspecific but unchanged and typical of chronic small vessel ischemic changes. The spicer-white matter interface is preserved. Moderate diffuse parenchymal volume loss. No ventricular obstruction. No abnormal extra-axial fluid collection. Atherosclerotic calcification of the carotid siphons. Intact calvarium and skull base. Bilateral pseudophakia. The paranasal sinuses and mastoid air cells are clear. IMPRESSION: 1. No acute intracranial abnormality. 2. Moderate diffuse parenchymal volume loss and presumed chronic small vessel ischemic changes. Please note that all CT scans at this facility use dose modulation, iterative reconstruction, and/or weight-based dosing when appropriate to reduce radiation dose to as low as reasonably achievable. Dictated by Phillip Adams MD @ 07/05/2024 3:56:11 PM (Electronic Signature) Chest x-ray: Attestation: I have reviewed the pertinent imaging results. Radiologist's impression: Patient: SHERYL SERRANO Facility:?[facility] Patient ID:?[id number] Site Patient ID:?[id number]. Site :?[id number] Study:?XRay-Chest -07/05/2024 3:50:58 PM Ordering Physician:?Yao Porras Final Report: Indication: Vertigo and shortness of breath Comparison: Single-view chest April 27, 2023 Technique: Single AP view chest Findings: There are diffusely increased interstitial markings from comparison. Moderate left-sided pleural effusion with likely adjacent compressive atelectasis versus infiltrates. Diffusely increased interstitial markings. The cardiac silhouette is enlarged with median sternotomy wires and dual-chamber pacer. The bony thorax is grossly intact. Impression: Moderate left-sided pleural effusion with adjacent compressive atelectasis versus infiltrates with diffusely increased interstitial markings consistent with pulmonary edema. Dictated by Simon Ch MD @ 07/05/2024 4:05:25 PM (Electronic Signature) CT scan - chest: Attestation: I have reviewed the pertinent imaging results. Radiologist's impression: Patient: SHERYL SERRANO Facility:?[facility] Patient ID:?[id number] Site Patient ID:?[id number]. Site :?[id number] Study:?CT-Chest WITHOUT-07/05/2024 6:03:38 PM Ordering Physician:Girish Porras Final Report: INDICATION: ABN CXR, R/O PNEUMONIA TECHNIQUE: CT of the chest was performed without intravenous contrast. Please note that all CT scans at this facility use dose modulation, iterative reconstruction, and/or weight-based dosing when appropriate to reduce radiation dose to as low as reasonably achievable. COMPARISON: 05/23/2024 FINDINGS: Medical devices: Right chest pacemaker with associated leads. Thyroid: Normal. Lymph nodes: Limited evaluation without IV contrast. Calcified bilateral hilar and mediastinal lymph nodes. Mildly prominent mediastinal lymph nodes measuring up to 1.0 centimeter in the precarinal station. Vasculature: Limited evaluation without IV contrast. Mildly enlarged main pulmonary artery measuring 3.1 centimeter in diameter (2/42). Heart: Moderate coronary artery calcification. No pericardial effusion. Postsurgical changes from coronary artery bypass grafting. Other mediastinal structures: No significant abnormality. Lung parenchyma: Redemonstration of spiculated right lower lobe opacities measuring up to 2.7 centimeter (3/46). Scattered bilateral calcified granulomata are again seen. Left lower lobe atelectasis. Interval resolution of previously seen patchy right upper lobe airspace opacities. Airways: No significant abnormality. Pleura: Moderate left pleural effusion. Chest wall: Postsurgical changes from median sternotomy. Moderate bilateral gynecomastia. Upper abdomen: Cholelithiasis. Musculoskeletal: Moderate degenerative changes of the visualized spine. Redemonstration mild superior endplate compression deformity at T4. IMPRESSION: 1. Interval resolution of previously seen patchy right upper lobe airspace opacities. 2. Redemonstration of spiculated right lower lobe opacities measuring up to 2.7 centimeter. Consensus guidelines for single solid lung nodule greater than 8 mm, not applicable if known malignancy or immunocompromise: Recommend PET/CT, repeat CT at 3 months, and/or tissue sampling. Pulmonology consultation may be considered as clinically indicated. (Harjeet et al. Radiology 2017) 3. Moderate left pleural effusion. 4. Mildly enlarged main pulmonary artery, which may be seen in the setting of pulmonary hypertension. 5. Nonspecific mildly enlarged mediastinal lymph nodes are again seen. Please note that all CT scans at this facility use dose modulation, iterative reconstruction, and/or weight-based dosing when appropriate to reduce radiation dose to as low as reasonably achievable. Dictated by Rojas Allred MD @ 07/05/2024 6:26:47 PM (Electronic Signature) ECG Data Attestation: I personally reviewed and interpreted this ECG as follows: (Ventricular paced, 85 beats per minute.) Prior ECG tracings: available for review (Same as prior.) Discharge Plan Discharge Clinical Impression: Myalgia, Neck pain on right side, Chronic kidney disease with end stage renal failure on dialysis Patient Disposition: Home, Self-Care Condition: Stable Instructions: Cervical Radiculopathy (ED), Polymyalgia Rheumatica (ED), Acute Neck Pain (ED) Additional Instructions: There is no evidence of pneumonia. You do need to go to dialysis tomorrow as scheduled. Your given 20 mg of prednisone in the ER tonight, will have you take prednisone 20 mg daily for the next week. If this does help the muscle aches and pains go way, reduces the right neck pain, I do think polymyalgia rheumatica and possibly underlying temporal arteritis might need to be a diagnostic consideration. For temporal arteritis, temporal artery biopsy is ultimately recommended but can talk to your primary care provider about this further. Chronic steroid treatment is what is recommended for these conditions. Sed rate here in the ER was 71. You had no evidence of pneumonia on your chest CT but did have the spiculated lesion, continue to follow with pulmonology or your primary care provider for your asbestos history exposure. Continue with Tylenol 1000 mg up to 3 times a day as needed for pain. It is important that you follow-up with your primary care provider at the previously scheduled appointment, try to get in sooner if concerns or issues. If the prednisone is helping, will likely need to get a subsequent prescription from your primary care provider. Activity Level: Activity as Tolerated Prescriptions: New prednisone 20 mg tablet 20 mg PO DAILY Qty: 7 0RF No Action insulin aspart U-100 [Novolog FlexPen U-100 Insulin] 100 unit/mL (3 mL) insulin pen 5 unit subcut TIDWM guaifenesin 100 mg/5 mL liquid 100 mg PO Q4H PRN (Reason: coughing) montelukast [Singulair] 10 mg tablet 10 mg PO HS nitroglycerin [Nitrostat] 0.4 mg tablet, sublingual 0.4 mg sublingual Q5M PRN Rx Instructions: do not exceed 3 doses per episode aspirin 81 mg capsule 81 mg PO DAILY loratadine [Claritin] 10 mg tablet 10 mg PO DAILY coenzyme Q10 [Co Q-10] 100 mg capsule 100 mg PO DAILY senna 8.6 mg capsule 8.6 - 17.2 mg PO BID acetaminophen [Tylenol Arthritis Pain] 650 mg tablet extended release 650 mg PO Q8H PRN insulin glargine [Lantus Solostar U-100 Insulin] 100 unit/mL (3 mL) insulin pen 18 unit subcut HS albuterol sulfate [Ventolin HFA] 90 mcg/actuation HFA aerosol inhaler 2 inh inhalation Q4H PRN pantoprazole 40 mg tablet,delayed release (DR/EC) 40 mg PO DAILY pravastatin 80 mg tablet 80 mg PO HS fluticasone propionate [24 Hour Allergy Relief] 50 mcg/actuation spray,suspension 1 spray intranasal DAILY PRN Rx Instructions: administer into each nostril cyclosporine [Restasis] 0.05 % dropperette 1 drp ophthalmic (eye) Q12H Dialyvite [phone] vf-ev-eku-mg tablet 1 tab PO BID Rx Instructions: administer with a meal pjbra-hd-0-gpt-pwo-hjmhccz-ast [MegaRed [place]-3 Krill Oil] 1,000-230-60 mg capsule 1 cap PO DAILY cholecalciferol (vitamin D3) 50 mcg (2,000 unit) capsule 50 mcg PO DAILY vitamin E 268 mg (400 unit) capsule 268 mg PO DAILY clopidogrel 75 mg tablet 75 mg PO DAILY Analgesic Odanah (m.salic-menth) 15-10 % cream 1 applic topical TID PRN diphenhydramine HCl [Aler-Cap] 25 mg capsule 25 mg PO Q4H PRN fluticasone propion-salmeterol [Wixela Inhub] 100-50 mcg/dose blister with device 1 inh inhalation BID hydrocortisone 2.5 % cream 1 applic topical BID PRN levothyroxine 175 mcg capsule 175 mcg PO DAILY magnesium hydroxide [Dulcolax (magnesium hydroxide)] 400 mg/5 mL suspension 30 ml PO DAILY PRN tiotropium bromide [Spiriva with HandiHaler] 18 mcg capsule, w/inhalation device 1 cap inhalation DAILY Rx Instructions: puncture 1 cap using device; one dose = 2 inhalations Follow Up/Referrals: Anna Marie Oglesby DO [Primary Care Provider] - Stand Alone Forms: [facility] Info Instructions
[2024-07-05 16:08] LABS: HCO3 VBG 30 mmol/L (21-28); PCO2 VBG 47 mmHG (40-50); PO2 VBG < 30.1 mmHG (25-47)
[2024-07-05 16:12] LABS: Basophils Absolute Auto 0.03 K/uL (0.00-0.30); Basophils Percent Auto 0.6 % (0.0-3.0); Eosinophils Absolute Auto 0.14 K/uL (0.00-0.50); Hematocrit 25.6 % (37.0-53.0); Hemoglobin* 8.3 gm/dL (13.5-17.5); Immature Granulocytes Abs Auto 0.04 K/uL (0.00-0.30); Immature Granulocytes Pct Auto 0.9 %; Lymphocytes Percent Auto 10.4 % (20-44); Mean Corpuscular HGB Conc 32 gm/dL (32-36); Mean Corpuscular Hemoglobin 32 pg (26-34); Mean Corpuscular Volume 100 fL (80-100); Monocytes Percent Auto 12.8 % (0.0-11.0); Neutrophils Percent Auto 72.3 % (42.0-72.0); Platelet Count* 151 K/uL (140-440); Red Blood Count 2.57 m/uL (4.30-5.90)
[2024-07-05 16:21] LABS: Slide Review Reflex No
[2024-07-05 16:31] LABS: Albumin* 4.1 g/dL (3.3-5.0); Chloride* 89 mmol/L (96-114); Sodium* 130 mmol/L (135-149)
[2024-07-05 16:32] LABS: Potassium* 4.6 mmol/L (3.6-5.1)
[2024-07-05 16:33] LABS: Creatinine* 4.5 mg/dL (0.5-1.5); Est. Creatinine Clearance* 12.93; Estimated Glomerular Filt Rate 12 ml/min
[2024-07-05 16:34] LABS: Alanine Aminotransferase* 14 U/L (4-50); Alkaline Phosphatase* 116 U/L (40-150); Anion Gap 13 mEq/L (7-15); Aspartate Amino Transferase* 23 U/L (12-35); Bilirubin Total* 0.7 mg/dL (0.1-1.5); Blood Urea Nitrogen* 60 mg/dL (7-30); Carbon Dioxide* 28 mmol/L (20-32); Glucose* 145 mg/dL (60-115); Total Protein* 7.8 g/dL (6.0-8.3)
[2024-07-05 16:35] LABS: Calcium* 9.3 mg/dL (8.4-10.6)
[2024-07-05 16:37] LABS: C Reactive Protein* 3.1 mg/dL (0.5-1.0)
[2024-07-05 16:48] LABS: Troponin I* < 0.01 ng/mL (0.01-0.04)
[2024-07-05 16:59] LABS: PCR FLU A Negative PCR FLU A (Negative); PCR FLU B Negative PCR FLU B (Negative); PCR RSV Negative PCR RSV (Negative); SARS PCR* Negative SARS-CoV-2 (Negative)
[2024-07-05 17:09] LABS: NT Pro B Type NatriureticPept* 77600 pg/mL
[2024-07-05 17:19] LABS: Erythrocyte SedimentationRate* 71 mm/hr (2-15)
[2024-07-05] MEDS: predniSONE 10 MG TABLET 20 MG PO (18:57)
[2024-07-05] MEDS: LIDOCAINE 5% PATCH 1 PATCH TRANSDERMA (18:57)
--- OUTSIDE RECORDS SUMMARY | 2024-07-06 13:45 | XMS_ITS ---
Author Name [facility] Address [address] [place] [address] Phone [phone] Organization [facility] e, NA DOCUMENT DISCLAIMER Multiple document versions may exist, please be sure you review the latest version. 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 [...] capsule ORAL January 07, 2023 Active Dialyvite [phone] bb-gq-zjf-mg Take by mouth every evening with meals [...] unit SUBCUTANEOUS June 10, 2024 Discontinued MegaRed [place]-3 Krill Oil 1,000-230-60 mg Take by mouth once a day 1 capsule ORAL June 10, 2024 Discontinued midodrine 10 mg ORAL June 10, 2024 June 20, 2024 Discontinued VITAL SIGNS Post-Treatment Vital Signs Vital Sign Value Date / Time Blood Pressure-sitting 131/62 mmHg June 092024 11:34 AM Heart Rate 78 beats per minute July 04, 2024 11:34 AM Respiratory Rate 16 breaths per minute June 092024 11:34 AM Temperature 97.9 deg. F July 04, 2024 11:34 AM Weight Vital Sign Value Date / Time Estimated Dry Weight 87.5 kg June 20, 2024 11:59 PM Pre-Dialysis 91.60 kg July 04, 2024 11:34 AM Post-Dialysis 89.00 kg July 04, 2024 11:34 AM Other Other Value Date / Time [...] 73 mcg/dL 155 - 355 mcg/dL Low er 2023 TIBC 191 mcg/dL 185 - 515 mcg/dL - 2023 WBC (No Diff) 6.31 1000/mcL 4.80 [...] 1000/mcL 130 - 400 1000/mcL Low 2023 Ferritin 1050 ng/mL 22 - 322 ng/mL [...] 154 1000/mcL 130 - 400 [facility]mcL [facility] Hemoglobin x 3 28.2 % 42.0 [...] 1000/mcL 130 - 400 1000/mcL - Dece mb2023 Hemoglobin x 3 25.8 % 42.0 [...] 122 mcg/dL 155 - 355 mcg/dL Low [facility]2023 Transferrin Sat. (Calc) 39 % 20 - 55 % - May 11 Hemoglobin x 3 24.9 % 42.0 - 54.0 % [facility] Hemoglobin x 3 24.6 [...] 191 1000/mcL 130 - 400 1000/mcL - Emeka elba2024 Hemoglobin x 3 24.6 % 42.0 - [...] % 0.0 - 1.5 % - June 15, 025 Eosinophil 4.1 % 0.0 - 7.0 [...] 65 - 80 % - April 13, 024 BUN, Post 22 mg/dL 6 - [...] 65 - 80 % - May 11, 024 BUN, Post 26 mg/dL 6 - [...] pg/mL 16 - 80 pg/mL High Jan Magnesium 2.1 mg/dL 1.6 - 2.6 mg/dL [...] April 13 Corrected Ca x P Product 27 0 - May 11 Calcium, Total 9.4 mg/dL 8.7 - 10.4 mg/dL - 2023 Ca x P Product 26 0 - May Phosphorus 2.8 mg/dL 2.6 - [...] Ratio 1.1 1.0 - 2.0 - April 13, 024 Total Protein 7.2 g/dL 6.0 - [...] 1.1 1.0 - 2.0 - June 15 25 eNPCR 0.96 No Reference Ran ge Provided - June 20, 2024 Immunochemistry Result Type Result Value Relevant Reference Range Interpre tation Date HCV s/co ratio 0.06 0.00 - 0.79 [...] March 23, 2023 0.5 mL Intramuscular Completed AnchorFree COVID-19 Vac cine, Bivalent, Booster March 17, [...] (mL/min) Dialysate Dialyzer Dialysis Access Meds Admin Jundino 2024 Weight 90.70 kg Weight 88.30 kg 03:27:00 450 3.0 K, 2.5 Ca, 1.0 Mg, 100 Dextrose (G3251) 180nre Optifl ux Blood Pressure-sitting 138/62 mmHg Blood Pressure-sit ting [...] 97.8 deg. F Temperature 97.8 deg. F July 04, 2024 Weight 91.60 kg Weight 89.00 kg 03:30:00 450 3.0 K, 2.5 Ca, 1.0 Mg, 100 Dextrose (G3251) 180nre Optiflux Hemodialysis-AV Fistula-Standard, Left Forearm, Other/Unknown Iron Sucrose (Venofer); 50mg,Intravenous - push Blood Pressure-sitting 156/72 mmHg Blood Pressure-sit ting 131/62 mmHg Heart Rate 85 beats per minute Heart Rate 78 beats per minute Respiratory Rate 16 breaths per minute Respiratory Rate 16 breaths per minute Temperature 97.5 deg. F Temperature 97.9 deg. F
--- OUTSIDE RECORDS SUMMARY | 2024-07-06 13:45 | XMS_ITS | CONTINUITY OF CARE DOCUMENT ---
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 Genoveva Stephens , [address] [facility] [address] [facility] [address] [facility] VITAL SIGNS Date Observation Value Provider Organization blood pressure, diastolic 64 mm[Hg] Mili Bredemus , [address] [facility] blood pressure, systolic 142 mm[Hg] Mili Bredemus , [address] [facility] [place] blood pressure, site #1 Upper arm Mili Bredemus , [address] [facility] blood pressure, diastolic, right arm 64 mm[Hg] Mili Bredemus , [address] [facility] blood pressure, systolic, right arm 142 mm[Hg] Mili Bredemus , [address] [facility] respiratory rate E&M 22 /min Mili Bredemus , [address] [facility] pulse rate 73 /min Milinahun Sanchezemu s , [address] [facility] [place] temperature E&M 98.3 [degF] Mili brink , [address] [facility] Body Mass Index (Ratio) 31.68 kg/m2 Mili Pizano , [address] [facility] weight E&M 220 [lb_av] Mili Ibanez s , [address] [facility] height E&M 70 [in_i] Mili Ibanez s , [address] [facility] blood pressure, diastolic 72 mm[Hg] Angelica Oswald , [address] [facility] [place] blood pressure, systolic 160 mm[Hg] Angelica Oswald , [address] [facility] [place] blood pressure, site #1 Upper arm Angelica Oswald , [address] [facility] blood pressure, diastolic, right arm 72 mm[Hg] Angelica ChenCanton , [address] [facility] blood pressure, systolic, right arm 160 mm[Hg] Angelica Beckerather , [address] [facility] [address] [facility] respiratory rate E&M 16 /min Angelica mijares , [address] [facility] [address] [facility] pulse rate 83 /min Angelica Denson her , [address] [facility] temperature E&M 98.4 [degF] Angelica silva , [address] [facility] [address] [facility] Body Mass Index (Ratio) 32.26 kg/m2 Angelica Oswald , [address] [facility] weight E&M 224 [lb_av] Angelica boggs , [address] [place] [address] [address] [facility] height E&M 70 [in_i] Angelica Denson her , [address] [place] [address] [address] [facility] [place] blood pressure, diastolic 75 mm[Hg] Radha De Leon RN RN, [address] [place] [address] [address] [facility] [place] blood pressure, systolic 181 mm[Hg] Radha De Leon RN RN, [address] [place] [address] [address] [facility] [place] respiratory rate E&M 14 /min Radha solano RN RN, [address] [place] [address] [address] [facility] [place] pulse rate 58 /min Radha De Leon RN R N, [address] [place] [address] [address] [facility] [place] blood pressure, site #1 Upper arm Radha De Leon RN RN, [address] [place] [address] [address] [facility] [place] blood pressure, diastolic, right arm 75 mm[Hg] Radha De Leon RN RN, [address] [place] [address] [address] [facility] [place] blood pressure, systolic, right arm 181 mm[Hg] Radha De Leon RN RN, [address] [place] [address] [address] [facility] [place] temperature E&M 98.0 [degF] Radha De Leon R N RN, [address] [place] [address] [address] [facility] [place] Body Mass Index (Ratio) 31.97 kg/m2 Radha De Leon RN RN, [address] [place] [address] [address] [facility] [place] weight E&M 222 [lb_av] Radha De Leon RN R N, [address] [place] [address] [address] [facility] [place] height E&M 70 [in_i] Radha De Leon RN R N, [address] [place] [address] [address] [facility] [place] ALLERGIES Allergy Name Onset Date Reaction Criticality Status Provider Or ganization PRILOSEC OTC diarrhea High Criticality active Genoveva Stephens , [address] [place] [address] [address] [place] [address] [facility] REGLAN gynecomastia High Criticality active Genoveva Stephens [address] [place] [address] [facility] LISINOPRIL GI upset High Criticality active R [facility]iel [facility] , [address] [facility] [address] [place] [address] [facility] LIPITOR High Criticality active Ra brenna [facility] , [address] [facility] [address] [place] [address] [facility] RESULTS Date Observation Value Provider Organization Refer ence Range Interpretation Location blood glucose, finger stick 183 Mili Pizano , [address] [facility] [place] HISTORY OF MEDICATION USE Medication Instructions Status Dates Provider Indications Com ments Organization Protonix 40 mg tablet,delayed release (DR/EC) active Mili Pizano , [address] GALZIN 50 MG ORAL CAPSULE active Genoveva[address] [place] [address] [facility] CVS VITAMIN E 400 UNIT ORAL CAPSULE 1 daily active [address] [place] [address] [facility] VITAMIN D (ERGOCALCIFERO L) [address] UNIT ORAL CAPSULE 1 cap daily active [address] [place] [address] [facility] TYLENOL 8 HOUR 650 MG ORAL TABLET EXTENDED RELEASE PRN active Genoveva[address] [place] [address] [facility] SYMBICORT 160-4.5 MCG/ACT INHALATION AEROSOL 2 puffs daily active [address] [place] [address] [facility] SPIRIVA HANDIHALER 18 MCG INHALATION CAPSULE 1 daily active [address] [place] [address] [facility] SINGULAIR 10 MG ORAL TABLET 1 daily active [address] [place] [address] [facility] CVS SENNA 8.6 MG ORAL TABLET 2 tabs in AM 2 tabs in PM daily active [address] [place] [address] [facility] PRAVACHOL 80 MG ORAL TABLET 1 daily active [address] [place] [address] [facility] NOVOLOG FLEXPEN 100 UNIT/ML SUBCUTANEOUS SOLUTION PEN-INJECTOR 3 times daily active [address] [place] [address] [facility] NITROSTAT 0.4 MG SUBLINGUAL TABLET SUBLINGUAL active [address] [place] [address] [facility] MEGARED OMEGA-3 KRILL OIL 500 MG ORAL CAPSULE 1 daily active [address] [place] [address] [facility] ALLERGY RELIEF 10 MG ORAL TABLET 1 daily active [address] [place] [address] [facility] LEVO-T 175 MCG ORAL TABLET 1 at night active [address] [place] [address] [facility] LANTUS 100 UNIT/ML SUBCUTANEOUS SOLUTION active [address] [place] [address] [facility] GAVISCON TABLET CHEWABLE PRN active [address] [place] [address] [facility] FLOVENT HFA 110 MCG/ACT INHALATION INHALER active [address] [place] [address] [facility] FLUNISOLIDE 25 MCG/ACT (0.025%) NASAL SOLUTION PRN active [address] [place] [address] [facility] CO Q 10 100 MG ORAL CAPSULE 1 daily active [address] [place] [address] [facility] DIALYVITE ORAL TABLET active [address] [place] [address] [facility] ASPIRIN ADULT LOW DOSE 81 MG ORAL TABLET DELAYED RELEASE 1 daily active [address] [facility] [address] [facility] ALBUTEROL SULFATE HFA 108 (90 BASE) MCG/ACT INHALATION AEROSOL SOLUTION 1-2 puffs 4 times daily active Genoveva Stephens , [address] [place] [address] [address] [facility] [address] [facility] SOCIAL HISTORY Date Observation Value Provider Organization 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, [address] [place] [address] Drive [address] [facility] social history reviewed E&M reviewed - no changes required Mili Pizano , [address] [place] [address] Drive [address] [facility] 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 Yayo Hooker MD, MD, [address] [place] [address] [address] [facility] social history reviewed E&M reviewed - no changes required Angelica Oswald , [address] [place] [address] [address] [facility] [id number] [place] [address] [facility] 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 Yayo Hooker MD, MD, [address] [place] [address] Drive [address] [facility] social history reviewed E&M reviewed - no changes required Radha De Leon RN RN, [address] [place] [address] [address] [facility] [place] INSURANCE PROVIDERS Payer name Policy type / Coverage type [employer] party ID MEDICARE [id number] COMMERCIAL INSURANCE [id number] HISTORY OF PROCEDURES Procedure Date Procedure Name Provider Procedure Notes Status Organization INJECTION FENTANYL CITRATE 100MCG Yayo Hooker MD, MD, [address] [facility] [address] completed [facility] INFUS NORMAL SALINE SOLUTION 250 CC Yayo Hooker MD, MD, [address] [facility] [address] completed [facility] INJECTION MIDAZOLAM HCL PER 1 MG Yayo Hooker MD, MD, [address] [facility] [address] completed [facility] Wire Yayo Hooker MD, MD, [address] [facility] [address] completed [facility] Balloon Yayo Hooker MD, MD, [address] [facility] [address] completed [facility] Sheath Yayo Hooker MD, MD, [address] [facility] [address] completed [facility] Omnipaque 300 10ml (Medicare Q9949) Yayo Hooker MD, MD, [address] [facility] [address] 25 completed [facility] Angioplasty within including RS&I Yayo Hooker MD, MD, [address] [place] [address] completed [facility] Fistulagram, Dialysis Yayo Hooker MD, MD, [address] [facility] [address] completed [facility] Antibiotic-No Order Yayo Hooker MD, MD, [address] [facility] [address] completed [facility] Quailty Measures all negative Yayo Hooker MD, MD, [address] [facility] [address] completed [facility] SNOMED-CT:HISTORICAL PNEUMOCOCCAL VACCINATION Yayo Hooker MD, MD, [address] [facility] [address] completed [facility] SNOMED-CT:PATIENT ENCOUNTER Yayo Hooker MD, MD, [address] [facility] [address] completed [facility] SNOMED-CT: [id number] Current Medications Documented Yayo Hooker MD, MD, [address] [facility] [address] completed [facility] INFUS NORMAL SALINE SOLUTION 250 CC Yayo Hooker MD, MD, [address] [facility] [address] completed [facility] INJECTION MIDAZOLAM HCL PER 1 MG Yayo Hooker MD, MD, [address] [facility] [address] completed [facility] Wire Yayo Hooker MD, MD, [address] [facility] [address] completed [facility] Balloon Yayo Hooker MD, MD, [address] [facility] [address] completed [facility] Sheath Yayo Hooker MD, MD, [address] [facility] [address] completed [facility] Omnipaque-Visipaque Yayo Hooker MD, MD, [address] [facility] [address] 20 ml completed [facility] Angioplasty within including RS&I Yayo Hooker MD, MD, [address] [facility] [address] completed [facility] Fistulagram, Dialysis Yayo Hooker MD, MD, [address] [place] [address] completed [facility] Antibiotic-No Order Yayo Hooker MD, MD, [address] [facility] [address] completed [facility] Quailty Measures all negative Yayo Hooker MD, MD, [address] [facility] [address] completed [facility] SNOMED-CT:HISTORICAL PNEUMOCOCCAL VACCINATION Yayo Hooker MD, MD, [address] [facility] [address] completed [facility] SNOMED-CT:PATIENT ENCOUNTER Yayo Hooker MD, MD, [address] [facility] [address] completed [facility] SNOMED-CT: [id number] Current Medications Documented Yayo Hooker MD, MD, [address] [facility] [address] completed [facility] INFUS NORMAL SALINE SOLUTION 250 CC Yayo Hooker MD, MD, [address] [facility] [address] completed [facility] INJECTION MIDAZOLAM HCL PER 1 MG Yayo Hooker MD, MD, [address] [facility] [address] completed [facility] INJECTION FENTANYL CITRATE 100MCG Yayo Hooker MD, MD, [address] [facility] [address] completed [facility] Wire Yayo Hooker MD, MD, [address] [facility] [address] completed [facility] Balloon Yayo Hooker MD, MD, [address] [facility] [address] completed [facility] Sheath Yayo Hooker MD, MD, [address] [place] [address] completed [facility] Omnipaque-Visipaque Yayo Hooker MD, MD, [address] [facility] [address] 20 ml completed [facility] Angioplasty within including RS&I Yayo Hooker MD, MD, [address] [facility] [address] completed [facility] Fistulagram, Dialysis Yayo Hooker MD, MD, [address] [place] [address] completed [facility] Antibiotic-No Order Yayo Hooker MD, MD, [address] [facility] [address] completed [facility] Quailty Measures all negative Yayo Hooker MD, MD, [address] [facility] [address] completed [facility] SNOMED-CT:HISTORICAL PNEUMOCOCCAL VACCINATION Yayo Hooker MD, MD, [address] [place] [address] completed [facility] SNOMED-CT:PATIENT ENCOUNTER Yayo Hooker MD, MD, [address] [facility] [address] completed [facility] [place]
--- OUTSIDE RECORDS SUMMARY | 2024-07-06 13:46 | XMS_ITS | Encounter Summary ---
Author Organization [facility] Address [address] [place] [address] Care Team Providers Care Centrifugal Drier Operator Name Role Phone Unavailable Primary Care Provider Unavailabl e Encounter Details Date Type Department Care Team (Late st Contact Info) Description 06/20/2024 Orders Only [facility] [place] [address] [facility] [address] [place] [address] Darren Youssef MD [address] [place] [address] Social History Tobacco Use Types [...] [place] Lab Results (06/20/2024) spKt/V Gotch 1.43 [facility] PCR 75.47 [facility] spKt/V (Daugirdas II) 1.43 [facility] eKt/V ([place]) 1.23 [facility] nPCR_HD 1.04 [facility] eKt/V Gotch 1.21 [facility] eNPCR 0.96 [facility] eKdrt/V 1.21 [facility] WSTDKT/V 2.4 [facility] 06/20/2024 06/20/2024 [place] Ordering Provider LAB BLOOD ORDERABLES Final Result Performing Organization Address [facility] de Phone Number [facility] Contact Performing lab Unknown, [place] * HD KINETICS (06/20/2024) % Urea Reduction 71 65 - 80 % [facility] 06/20/2024 06/21/2024 10: 11 AM 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 Narrative [facility] - 06/21/2024 Unless otherwise specified, test(s) performed at: [facility], [address] [place] [address], [place] [address] SEED TRUCKER: Rojas Kirkland M.D., Ph.D For any questions, please call customer service at FREQUENCY:OTHER Resulting Agency Comment Specimen source: Plasma Darren Youssef MD LAB BLOOD ORDERABLES Final Re sult Performing Organization Address [facility] de Phone Number [facility] See order comments or contact performing lab Unknown, [place] * (ABNORMAL) [facility] (06/20/2024) Pathologist [facility] BUN 76(H) 6 - 19 mg/dL [facility] 06/20/2024 06/21/2024 1:4 4 PM FOUNTAIN BRUSH ASSEMBLER Narrative [facility] - 06/21/2024 Unless otherwise specified, test(s) performed at: [facility], [address] [place] [address], [place] [address] SEED TRUCKER: Rojas Kirkland M.D., Ph.D For any questions, please call customer service at FREQUENCY:OTHER Resulting Agency Comment Specimen source: Serum Darren Youssef MD LAB BLOOD ORDERABLES Final Re sult Performing Organization Address [facility] de Phone Number [facility] See order comments or contact performing lab Unknown, [place] * (ABNORMAL) POST CHEMISTRY (06/20/2024) BUN Post Dialysis 22(H) 6 - 19 mg/dL [facility] 06/20/2024 06/21/2024 10: 11 AM FOUNTAIN BRUSH ASSEMBLER Narrative [facility] - 06/21/2024 Unless otherwise specified, test(s) performed at: [facility], [address] [place] [address], [place] [address] SEED TRUCKER: Rojas Kirkland M.D., Ph.D For any questions, please call customer service at FREQUENCY:OTHER Resulting Agency Comment Specimen source: Plasma us Darren Youssef MD LAB BLOOD ORDERABLES Final Re sult [facility] See order comments or contact performing lab Unknown, [place] documented in this encounter Visit Diagnoses Not on filedocumented in this encounter
--- OUTSIDE RECORDS SUMMARY | 2024-07-06 13:47 | XMS_ITS | Encounter Summary ---
Author Organization [facility] [place] [place] Address [address] [place] [address] Care Team Providers Care Research And Evaluation Analyst Name Role Phone Unavailable Primary Care Provider Unavailabl e Encounter Details Date Type Department Care Team (Late st Contact Info) Description 06/15/2024 Orders Only [facility] [place] [address] [facility] [address] [place] [address] Darren Youssef MD [address] [place] [address] Social History Tobacco Use Types [...] [place] Lab Results (06/15/2024) spKt/V Gotch 1.20 [facility] nPCR_HD 1.13 [facility] eKt/V Gotch 1.02 [facility] eKt/V ([place]) 1.02 [facility] eKdrt/V 1.02 [facility] WSTDKT/V 2.1 [facility] eNPCR 1.04 [facility] spKt/V (Daugirdas II) 1.19 [facility] PCR 79.26 [facility] 06/15/2024 06/15/2024 [facility] Ordering Provider LAB BLOOD ORDERABLES Final Result [...] [facility] 06/15/2024 06/16/2024 12: 18 PM ASSOCIATE CONSULTING ENGINEER Narrative [facility] - 06/16/2024 Unless otherwise specified, test(s) performed at: [facility], [address] [place] [address], [place] [address] SENIOR NUCLEAR MEDICINE TECHNOLOGIST: Rojas Kirkland M.D., Ph.D For any questions, please call customer service at FREQUENCY:MONTHLY Resulting Agency Comment Specimen source: Blood Darren Youssef MD LAB BLOOD ORDERABLES Final Re sult Performing Organization Address [facility] de Phone Number [facility] See order comments or contact performing lab Unknown, [place] * HD KINETICS (06/15/2024) % Urea Reduction 65 65 - 80 % [facility] 06/15/2024 06/16/2024 10: 29 AM ASSOCIATE CONSULTING ENGINEER Narrative Resulting Agency Comment Specimen source: Plasma Darren Youssef MD LAB BLOOD ORDERABLES Final Re sult Performing Organization Address [facility] Phone Number [facility] See order comments or contact performing lab Unknown, [place] * (ABNORMAL) POST CHEMISTRY (06/15/2024) BUN Post Dialysis 27(H) 6 - 19 mg/dL [facility] 06/15/2024 06/16/2024 10: 29 AM ASSOCIATE CONSULTING ENGINEER Narrative [facility] - 06/16/2024 Unless otherwise specified, test(s) performed at: [facility], [address] [place] [address], [place] [address] SENIOR NUCLEAR MEDICINE TECHNOLOGIST: Rojas Kirkland M.D., Ph.D For any questions, please call customer service at FREQUENCY:MONTHLY Resulting Agency Comment Specimen source: Plasma Darren Youssef MD LAB BLOOD ORDERABLES Final Re sult Performing Organization Address [facility] de Phone Number [facility] See order comments or contact performing [...] [facility] 06/15/2024 06/16/2024 9:2 4 AM ASSOCIATE CONSULTING ENGINEER N[facility]ative [facility]24 Unless otherwise specified, test(s) performed at: [facility] [place] [address] SENIOR NUCLEAR MEDICINE TECHNOLOGIST: Rojas Kirkland M.D., Ph.D For any questions, please call customer service at FREQUENCY:MONTHLY Resulting Agency Comment Specimen source: Serum us Darren Youssef MD LAB BLOOD ORDERABLES Final Re sult [facility] See order comments or contact performing lab Unknown, [place] * IMMUNO CHEMISTRY (06/15/2024) Hep B Surface Ag Negative Negative [facility] 06/15/2024 06/16/2024 10: 07 AM ASSOCIATE CONSULTING ENGINEER Narrative [facility] - 06/16/2024 Unless otherwise specified, test(s) performed at: [facility], [address] [place] [address], [place] [address] SENIOR NUCLEAR MEDICINE TECHNOLOGIST: Rojas Kirkland M.D., Ph.D For any questions, please call customer service at FREQUENCY:MONTHLY Resulting Agency Comment Specimen source: Plasma us Darren Youssef MD LAB BLOOD ORDERABLES Final Re sult [facility] See order comments or contact performing lab Unknown, [place] documented in this encounter Visit Diagnoses Not on filedocumented in this encounter
--- OUTSIDE RECORDS SUMMARY | 2024-07-06 13:47 | XMS_ITS | Encounter Summary ---
Author Organization [facility] Address [address] [facility] [address] [place] [address] Care Team Providers Care Glove Wrapper Name Role Phone Unavailable Primary Care Provider Unavailabl e Encounter Details Date Type Department Care Team (Late st Contact Info) Description 06/29/2024 Orders Only [facility] [place] [address] [facility] [address] [place] [address] Darren Youssef MD [address] [place] [address] Social History Tobacco Use Types [...] (06/29/2024) Hemoglobin 8.2(L) 14.0 - 18.0 g/dL [facility] Hemoglobin x 3 24.6(L) 42.0 - 54.0 % [facility] 06/29/2024 06/30/2024 2:1 7 AM SUPERVISOR POULTRY HATCHERY Narrative [facility] - 06/30/2024 Unless otherwise specified, test(s) performed at: [facility], [address] [place] [address], [place] [address] MAILING SECTION CLERK: Rojas Kirkland M.D., Ph.D For any questions, please call customer service at FREQUENCY:OTHER Resulting Agency Comment Specimen source: Blood us Darren Youssef MD LAB BLOOD ORDERABLES Final Re sult [facility] See order comments or contact performing lab Unknown, [place] documented in this encounter Visit Diagnoses Not on filedocumented in this encounter
--- OUTSIDE RECORDS SUMMARY | 2024-07-06 13:47 | XMS_ITS | Encounter Summary ---
Author Organization [facility] [place] [place] Address [address] [place] [address] Care Team Providers Care Food Truck Caterer Name Role Phone Unavailable Primary Care Provider Unavailabl e Reason for Visit * Reason Onset Date Comments Hospital Discharge 06/09/2024 [facility] Encounter Details Date Type Department Care Team (Late st Contact Info) Description 06/09/2024 Telephone [facility] [place] [address] [place] [address] Nehal Meredith, RN [address] [place] [address] Hospital Discharge ([facility]) Social History Tobacco Use Types Packs/Day Years [...] Korey Mackay Patient : 1940 Patient Address: [address] [place] [id number] Patient Medications All medications were reviewed with the patient based on the discharge summary dated 06/08/2024 from [facility]. Fluid Assessment: Do you feel you had an appropriate amount of fluid removed/is your fluid status appropriate? Yes. thinks they sometimes remove too much fluid. She notified the dialysis nurse Do you feel short of breath? No Do you have any other symptoms (cramps/dizziness)? Reports leg cramps Barriers to Care: questions if Midodrine will be a long-term medication. Advised that it will depend how [...] will contact the PCP. Confirm dialysis location: [facility] Scheduled date and time: MWF 1140AM Do you have any concerns with getting to your dialysis unit? No Reviewed discharge summary, including in assisting with follow-up appointments, tests or treatmentsordered, coordinating with other providers involved with aftercare, and providing community resources and/or education that were ordered during the patients hospital stay. Nheal Meredith RN documented in this encounter Plan of Treatment Not on file documented as of this encounter Visit Diagnoses Not on filedocumented in this encounter
--- OUTSIDE RECORDS SUMMARY | 2024-07-06 13:47 | XMS_ITS | Encounter Summary ---
Author Organization [facility] Address [address] [facility] [facility] [address] [place] [address] Care Team Providers Care Concession Worker Name Role Phone Unavailable Primary Care Provider Unavailabl e Encounter Details Date Type Department Care Team (Late st Contact Info) Description 06/10/2024 Orders Only [facility] [place] [address] [facility] [address] [place] [address] Darren Youssef MD [address] [place] [address] Social History Tobacco Use Types [...] (06/10/2024) Hemoglobin 8.2(L) 14.0 - 18.0 g/dL [facility] Hemoglobin x 3 24.6(L) 42.0 - 54.0 % [facility] 06/10/2024 06/13/2024 10: 40 AM APPLICATION SECURITY ENGINEER Narrative BERENICE - 06/13/2024 Unless otherwise specified, test(s) performed at: [facility], [address] [place] [address], [place] [address] ELECTRIC ACCOUNTING MACHINE OPERATOR: Rojas Kirkland M.D., Ph.D For any questions, please call customer service at FREQUENCY:OTHER Resulting Agency Comment Specimen source: Blood us Darren Youssef MD LAB BLOOD ORDERABLES Final Re sult [facility] See order comments or contact performing lab Unknown, [place] documented in this encounter Visit Diagnoses Not on filedocumented in this encounter
--- OUTSIDE RECORDS SUMMARY | 2024-07-06 13:47 | XMS_ITS | Encounter Summary ---
Author Organization [facility] Address [address] [place] [address] Care Team Providers Care Drug Clerk Name Role Phone Unavailable Primary Care Provider Unavailabl e Encounter Details Date Type Department Care Team (Late st Contact Info) Description 06/20/2024 TCM in Dialysis Clinic [facility] [place] [address] [place] [address] Darren Youssef MD [address] [place] [address] Social History Tobacco Use Types [...] 06/20/2024 The patient was seen for a bprl-se-socz visit as part of Transitional Care Management services. Attending Carburetor Expert: DARREN YOUSSEF Dialysis Location: [facility] Schedule: Shift: 2 INTERACTIVE CONTACT Contact [...] medication orders reviewed - no changes. Current [facility] Medications albuterol sulfate 90 mcg/actuation HFA [...] capsule by mouth once a day. Dialyvite [id number] kk-bj-eva-mg tablet Take 1 tablet by mouth every [...] 97.4*F Current Dialysis Vitals BP Sit: 151/69 AP/LENS GRINDER APPRENTICE: -160/220 Pulse: 69 CARE COORDINATION Post-discharge follow-up appointments reviewed with the patient. EDUCATION Education relevant to the discharge diagnosis provided to the patient or caregiver IMPRESSION & PLAN COMMENTS: Stable after hospital stay s/p partial amputation of toe Lower EDW Lung mass vs inflammatory change, repeat CT 2 months by PCP suggested. PCP post- discharge visit completed VISIT DIAGNOSES CPT Code 62387 - High complexity, seen 8-14 days post discharge or moderate complexity, seen [id number] days of discharge. N18.6 End stage renal [...]
--- OUTSIDE RECORDS SUMMARY | 2024-07-06 13:47 | XMS_ITS | Encounter Summary ---
Author Organization [facility] Address [address] [facility] [address] [place] [address] Care Team Providers Care Diet Attendant Name Role Phone Unavailable Primary Care Provider Unavailabl e Encounter Details Date Type Department Care Team (Late st Contact Info) Description 06/22/2024 Orders Only [facility] [place] [address] [facility] [address] [place] [address] Darren Youssef MD [address] [place] [address] Social History Tobacco Use Types [...] (06/22/2024) Hemoglobin 8.0(L) 14.0 - 18.0 g/dL [facility] Hemoglobin x 3 24.0(L) 42.0 - 54.0 % [facility] 06/22/2024 06/23/2024 10: 35 AM SALES ANALYTICS MANAGER Narrative BERENICE - 06/23/2024 Unless otherwise specified, test(s) performed at: [facility], [address] [place] [address], [place] [address] ER MANAGER: Rojas Kirkland M.D., Ph.D For any questions, please call customer service at FREQUENCY:OTHER Resulting Agency Comment Specimen source: Blood us Darren Youssef MD LAB BLOOD ORDERABLES Final Re sult [facility] See order comments or contact performing lab Unknown, [place] documented in this encounter Visit Diagnoses Not on filedocumented in this encounter
--- OUTSIDE RECORDS SUMMARY | 2024-07-06 13:47 | XMS_ITS | Clinical Summary ---
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 Hold x 5 days. Resume taking on 11/23/2019. 0 11/18/19 Active vitamin e 400 unit capsule Take [...] mouth once daily. Active Vit B Cplx #22-BG-B-Biot-Zi nc (Dialyvite) [phone] go-zh-usy-mg tablet Take 1 Tablet by mouth once daily. 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 10/19/2020 CKD (chronic [...] of care unspecified Overview (07/10/2006): Non Q [place] 06/14 Atherosclerosis of [place] co ronary artery of [place] heart with angina pectoris Overview (07/10/2006): Status [...] Encounters Date Type Department Care Team Description 07/05/2024 Nurse Triage [facility] [address] [place] [address] Mendel Anna Marienoelle Lozano, DO Shortness Of Breath; Dizziness 06/28/2024 4:00 PM RAIL TRACTOR OPERATOR Office Visit [facility] [address] [place] [address] Sneha D eLa Cruz MD CV Vascular Est (4 month follow up; discuss canceled carotid intervention. U/S scheduled prior. ) 06/28/2024 3:00 PM RAIL TRACTOR OPERATOR - 06/28/2024 11:59 PM RAIL TRACTOR OPERATOR Hospital Encounter [facility] [address] [place] [address] Sneha De La Cruz MD Leistner, Joseph S, R.T. (ARRT) Bilateral carotid artery stenosis 06/28/2024 11:10 AM RAIL TRACTOR OPERATOR Office Visit [facility] [address] [place] [address] Zeny Medley MD Musculoskeletal Problem (R shoulder/neck pain x 1 month); Leg Pain/problem (Upper thigh pain since angiogram ) 06/28/2024 Travel 06/23/2024 1:00 PM RAIL TRACTOR OPERATOR Home Care Visit [facility] [address] [place] [phone] Michelle Garnica RN SN - OASIS DISCHARGE 06/23/2024 9:45 AM RAIL TRACTOR OPERATOR Office Visit [facility] [place] [address] [facility] [address] [place] [phone] Braulio Philippe DPM Post-op (Left foot, DOS 06/05/24, 2 week post op) 06/23/2024 Travel 06/20/2024 Telephone [facility] [address] [place], [place] [address] [place] [address] Pankaj Brownlee MD Medication Management (SPIRIVA) 06/16/2024 2:55 PM RAIL TRACTOR OPERATOR Office Visit [facility] [address] [place] [address] Braden Wilder MD Hospital F/U ([place], 05/25/2024 - 06/08/2024, pneumonia ) 06/16/2024 Travel 06/14/2024 1:00 PM RAIL TRACTOR OPERATOR Home Care Visit [facility] [address] [place] [address] Michelle Garnica, FRANCIA SN - HOME VISIT 06/13/2024 3:45 AM RAIL TRACTOR OPERATOR Home Care Visit [facility] [address] [place] [address] Kristie Perera RN SN - WOUND/OSTOMY CHART CONSULT 06/11/2024 11:00 AM RAIL TRACTOR OPERATOR Home Care Visit [facility] [address] [place] [address] Kelsy Yi, FRANCIA SN - OASIS START OF CARE 06/11/2024 Telephone [facility] [address] [place] [address] Kelsy Yi, instrument lens inspector (Need ongoing orders for home health) 06/11/2024 Plan of Care Documentation [facility] [address] [place] [address] 06/09/2024 Home Care Visit [facility] [address] [place] [phone] Danitza Strange RN CARE COORDINATION 06/09/2024 Patient Outreach [facility] [address] [place] [address] Sharri Osei, FRANCIA Hospital F/U; Primary RN Care Management (LEOBARDO Toscano) 06/07/2024 Travel 06/05/2024 7:20 AM RAIL TRACTOR OPERATOR - 06/05/2024 8:31 AM RAIL TRACTOR OPERATOR Surgery [facility] [address] [place] [address] Phillip Hutton DPM LEFT PARTIAL HALLUX AMPUTATION 06/05/2024 7:12 AM RAIL TRACTOR OPERATOR Anesthesia Event [facility] [address] [place] [facility] [place] [address] Magalis John MD Schumacher, Donna Mae Brockman, JUDIE 06/04/2024 Orders Only [facility] [address] [place] [phone] StElier love PA <No scans attached> 06/04/2024 Orders Only [facility] [address] [place] [phone] StrElier PA <No scans attached> 06/03/2024 1:41 PM RAIL TRACTOR OPERATOR Anesthesia Event [facility] [address] [place] [address] Dominguez Gomez MD Schulte, Whitney R, URBAN DESIGN CONSULTANT 06/03/2024 Travel 05/31/2024 Travel 05/25/2024 4:55 AM RAIL TRACTOR OPERATOR - 06/08/2024 2:56 PM RAIL TRACTOR OPERATOR Hospital Encounter [facility] [address] [place] [address] [facility] Hospitalist Sheyla Wiley MD Thielman, DO German Aggarwal, MD Avril Anderson, MD Sergio Andrea, Phillip Wall DO 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); Hypotension, unspecified hypotension type Discharge Disposition: Home Health 05/25/2024 Travel 05/19/2024 1:00 PM RAIL TRACTOR OPERATOR Office Visit [facility] [address] [place] [address] Trey Carlson MD Wound Check (on the bottom- has had for about 6 weeks/Has been using butt cream bacitracin and other otc creams ) 05/19/2024 Travel 05/16/2024 Refill [facility] [address] [place] [address] Anna Marie Oglesby, Refill Request (clopidogreL (Plavix) 75 mg table//) 04/29/2024 Telephone [facility] [address] [place] [address] [place] [address] Arnie Jin MD Concerns 04/19/2024 10:30 AM RAIL TRACTOR OPERATOR Office Visit [facility] [address] [place] [address] Arnie Jin MD Follow Up (Surgery canceled due to blockage/CTA 03/22/24/) 04/19/2024 Travel from Last 3 Months Immunizations [...] on file Legal Sex Male 5:26 AM RAIL TRACTOR OPERATOR Gender Identity Not on file Sexual Orientation Not on file Occupation Industry Job Start Date Job End Date retired Not on file Not on file Not on file Obstetrics History Last Filed Vital Signs Vital Sign Reading Time Taken Comments Blood Pressure 136/66 06/28/2024 3:44 PM RAIL TRACTOR OPERATOR Pulse 70 06/28/2024 3:44 PM RAIL TRACTOR OPERATOR Temperature 36.9 C (98.4 F) 06/23/2024 12:55 PM RAIL TRACTOR OPERATOR Respiratory Rate 18 06/23/2024 12:55 PM RAIL TRACTOR OPERATOR Oxygen Saturation 98% 06/28/2024 3:44 PM RAIL TRACTOR OPERATOR Inhaled Oxygen Concentration - - Weight 86.8 kg (191 lb 6.4 oz) 06/16/2024 2:48 P M RAIL TRACTOR OPERATOR Height 182.9 cm (6') 06/11/2024 11:20 AM RAIL TRACTOR OPERATOR Body Mass Index 25.96 06/11/2024 11:20 AM RAIL TRACTOR OPERATOR Plan of Treatment Upcoming Encounters Date Type Department Care Team (Late st Contact Info) Description 07/07/2024 9:30 AM RAIL TRACTOR OPERATOR Office Visit [facility] [address] [place] [address] Braulio Philippe DPM [address] [place] [address] 07/19/2024 11:00 AM RAIL TRACTOR OPERATOR Office Visit [facility] [address] [place] [address] Anna Marie Oglesby, DO [address] [place] [address] 07/20/2024 2:30 PM RAIL TRACTOR OPERATOR Office Visit [address] [place] [phone] Trang Monroy MBBS [address] [place] [address] 07/21/2024 1:00 PM RAIL TRACTOR OPERATOR Appointment [facility] [address] [place] [address] 07/21/2024 1:45 PM RAIL TRACTOR OPERATOR Appointment [facility] [address] [place] [address] 10/14/2024 Cardiac Device [facility] [phone] Health Maintenance Due Date Last Done Comments [...] history exists Medical Devices Implanted Type Area Blowing Engineer Device Identifier Shelf Expiration Date Model / Serial / Lot Screw Sm Joint 3.5x80mm Os Slf Tppng Bob - [id number] Implanted:Qty: 1 on 04/15/2015 by Rj Bui MD at [facility] Left: Leg [employer] [id number]# / / Screw Sm Joint 4x85mm Axsos Lock Slf Tppng [address] - [id number] Implanted:Qty: 1 on 04/15/2015 by Rj Bui MD at [facility] Left: Leg [employer] [id number]# / / Screw Sm Joint 3.5x75mm Os Slf Tppng Bob - [id number] Implanted:Qty: 1 on 04/15/2015 by Rj Bui MD at [facility] Left: Leg [employer] [id number]# / / Screw Sm Joint 3.5x85mm Os Slf Tppng Bob - [id number] Implanted:Qty: 1 on 04/15/2015 by Rj Bui MD at [facility] Left: Leg [employer] [id number]# / / Plate Tib Lt 10 Hole Axsos Prox Lateral - [id number] Implanted:Qty: 1 on 04/15/2015 by Rj Bui MD at [facility] Left: Leg [employer] [id number]# / / Screw Sm Joint 3.5x28mm Os Slf Tppng Bob - [id number] Implanted:Qty: 1 on 04/15/2015 by Rj Bui MD at [facility] Left: Leg [employer] [id number]# / / Screw Sm Joint 3.5x30mm Os Slf Tppng Bob - [id number] Implanted:Qty: 1 on 04/15/2015 by Rj Bui MD at [facility] Left: Leg [employer] [id number]# / / Screw Sm Joint 3.5x32mm Os Slf Tppng Bob - [id number] Implanted:Qty: 1 on 04/15/2015 by Rj Bui MD at [facility] Left: Leg [employer] [id number]# / / Screw Sm Joint 4x26mm Axs[employer] Lock Slf Tppng [address] - [id number] Implanted:Qty: 1 on 04/15/2015 by Rj Bui MD at [facility] Left: Leg [employer] [id number]# / / Explanted Type Area Blowing Engineer Device Identifier Shelf Expiration Date Model / Serial / Lot K-Wire [place] 10pk - [id number] Explanted:Qty: 2 on 04/15/2015 at [facility] Left: Leg [employer] [id number]# / / Procedures Procedure Name Priority Date/Time Associated Diagnosis Comments US CAROTID DUPLEX BILATERAL Routine 06/28/2024 3:35 PM RAIL TRACTOR OPERATOR Bilateral carotid artery stenosis GLUCOSE METER Timed 06/08/2024 8:11 AM RAIL TRACTOR OPERATOR SCAN-CARDIAC STRIP 06/08/2024 12 :57 AM RAIL TRACTOR OPERATOR GLUCOSE METER Timed 06/07/2024 9:02 PM RAIL TRACTOR OPERATOR SCAN-CARDIAC STRIP 06/07/2024 4: 16 PM RAIL TRACTOR OPERATOR PLATELET COUNT Today 06/07/2024 10:53 AM RAIL TRACTOR OPERATOR BASIC METABOLIC PANEL Early AM 06/07/2024 10:53 AM RAIL TRACTOR OPERATOR SCAN-CARDIAC STRIP 06/07/2024 10 :39 AM RAIL TRACTOR OPERATOR GLUCOSE METER Timed 06/07/2024 7:58 AM RAIL TRACTOR OPERATOR GLUCOSE METER Timed 06/06/2024 9:30 PM RAIL TRACTOR OPERATOR GLUCOSE METER Timed 06/06/2024 5:06 PM RAIL TRACTOR OPERATOR SCAN-CARDIAC STRIP 06/06/2024 4: 02 PM RAIL TRACTOR OPERATOR GLUCOSE METER Timed 06/06/2024 12:14 PM RAIL TRACTOR OPERATOR GLUCOSE METER Timed 06/06/2024 8:20 AM RAIL TRACTOR OPERATOR SCAN-CARDIAC STRIP 06/05/2024 4: 51 PM RAIL TRACTOR OPERATOR GLUCOSE METER Timed 06/05/2024 4:26 [address] HEAD BRAIN WO STAT 06/05/2024 4:00 PM RAIL TRACTOR OPERATOR SCAN-CARDIAC STRIP 06/05/2024 2: 52 PM RAIL TRACTOR OPERATOR SCAN-CARDIAC STRIP 06/05/2024 2: 52 PM RAIL TRACTOR OPERATOR XR FOOT 3 VIEWS LEFT PORTABLE Routine 06/05/2024 8:56 AM RAIL TRACTOR OPERATOR TISSUE CULTURE, STAIN (AEROBIC) Today 06/05/2024 7:42 AM RAIL TRACTOR OPERATOR ANAEROBIC CULTURE Today 06/05/2024 7:4 2 AM RAIL TRACTOR OPERATOR PATH TISSUE EXAM Today 06/05/2024 7:40 AM RAIL TRACTOR OPERATOR GLUCOSE METER Timed 06/05/2024 7:11 AM RAIL TRACTOR OPERATOR AMPUTATION TOE 06/05/2024 7:02 AM RAIL TRACTOR OPERATOR LEFT HALLUX INFECTION Case Notes SAGITTAL SAW GLUCOSE METER Timed 06/04/2024 10:57 PM RAIL TRACTOR OPERATOR SCAN-CARDIAC STRIP 06/04/2024 8: 40 PM RAIL TRACTOR OPERATOR SCAN-CARDIAC STRIP 06/04/2024 8: 40 PM RAIL TRACTOR OPERATOR GLUCOSE METER Timed 06/04/2024 4:52 PM RAIL TRACTOR OPERATOR BASIC METABOLIC PANEL Today 06/04/2024 9:54 AM RAIL TRACTOR OPERATOR GLUCOSE METER Timed 06/04/2024 8:37 AM RAIL TRACTOR OPERATOR SCAN-CARDIAC STRIP 06/04/2024 8: 15 AM RAIL TRACTOR OPERATOR SCAN-CARDIAC STRIP 06/04/2024 2: 25 AM RAIL TRACTOR OPERATOR HEMOGLOBIN STAT 06/03/2024 8:05 PM RAIL TRACTOR OPERATOR BASIC METABOLIC PANEL Today 06/03/2024 8:05 PM RAIL TRACTOR OPERATOR GLUCOSE METER Timed 06/03/2024 7:36 PM RAIL TRACTOR OPERATOR HCHG ACTIVATED CLOTTING TM CV Timed 06/03/2024 3:09 PM RAIL TRACTOR OPERATOR HCHG ACTIVATED CLOTTING TM CV Timed 06/03/2024 2:38 PM RAIL TRACTOR OPERATOR GLUCOSE METER Timed 06/03/2024 12:30 PM RAIL TRACTOR OPERATOR CBC W PLT NO DIFF Early AM 06/03/2024 9:5 9 AM RAIL TRACTOR OPERATOR SCAN-CARDIAC STRIP 06/03/2024 9: 43 AM RAIL TRACTOR OPERATOR GLUCOSE METER Timed 06/03/2024 8:12 AM RAIL TRACTOR OPERATOR GLUCOSE METER Timed 06/02/2024 9:05 PM RAIL TRACTOR OPERATOR IR PICC LINE Routine 06/02/2024 3:26 PM RAIL TRACTOR OPERATOR GLUCOSE METER Timed 06/02/2024 1:39 PM RAIL TRACTOR OPERATOR MR FOOT LEFT WO Routine 06/02/2024 11:30 AM RAIL TRACTOR OPERATOR SCAN-CARDIAC STRIP 06/02/2024 9: 44 AM RAIL TRACTOR OPERATOR GLUCOSE METER Timed 06/02/2024 7:59 AM RAIL TRACTOR OPERATOR GLUCOSE METER Timed 06/02/2024 6:58 AM RAIL TRACTOR OPERATOR HEMOGLOBIN Early AM 06/02/2024 6:15 AM RAIL TRACTOR OPERATOR WHITE BLOOD COUNT Early AM 06/02/2024 6:1 5 AM RAIL TRACTOR OPERATOR BASIC METABOLIC PANEL Early AM 06/02/2024 6:15 AM RAIL TRACTOR OPERATOR GLUCOSE METER Timed 06/01/2024 10:09 PM RAIL TRACTOR OPERATOR US ARTERIAL LOWER EXTREMITY W RITA BILATERAL Routine 06/01/2024 8:15 PM RAIL TRACTOR OPERATOR GLUCOSE METER Timed 06/01/2024 5:09 PM RAIL TRACTOR OPERATOR GLUCOSE METER Timed 06/01/2024 8:28 AM RAIL TRACTOR OPERATOR SCAN-CARDIAC STRIP 06/01/2024 7: 51 AM RAIL TRACTOR OPERATOR VANCOMYCIN Early AM 06/01/2024 6:29 AM RAIL TRACTOR OPERATOR HEMOGLOBIN Early AM 06/01/2024 6:29 AM RAIL TRACTOR OPERATOR WHITE BLOOD COUNT Early AM 06/01/2024 6:2 9 AM RAIL TRACTOR OPERATOR BASIC METABOLIC PANEL Early AM 06/01/2024 6:29 AM RAIL TRACTOR OPERATOR GLUCOSE METER Timed 05/31/2024 11:03 PM RAIL TRACTOR OPERATOR GLUCOSE METER Timed 05/31/2024 6:20 PM RAIL TRACTOR OPERATOR ANAEROBIC CULTURE Today 05/31/2024 4:3 3 PM RAIL TRACTOR OPERATOR AEROBIC BACTERIAL CULTURE, STAIN Today 05/31/2024 4:33 PM RAIL TRACTOR OPERATOR XR FOOT 3 VIEWS LEFT SUZI 05/31/2024 1:53 PM RAIL TRACTOR OPERATOR ECHO TTE COMPLETE WO CONTRAST Routine 05/31/2024 12:49 PM RAIL TRACTOR OPERATOR GLUCOSE METER Timed 05/31/2024 11:55 AM RAIL TRACTOR OPERATOR GLUCOSE METER Timed 05/31/2024 8:57 AM RAIL TRACTOR OPERATOR SCAN-CARDIAC STRIP 05/31/2024 7: 47 AM RAIL TRACTOR OPERATOR HEMOGLOBIN A1C SUZI 05/31/2024 7:21 AM RAIL TRACTOR OPERATOR PLATELET COUNT SUZI 05/31/2024 7:21 AM RAIL TRACTOR OPERATOR MAGNESIUM Add On 05/31/2024 7:21 AM RAIL TRACTOR OPERATOR HEMOGLOBIN Early AM 05/31/2024 7:21 AM RAIL TRACTOR OPERATOR WHITE BLOOD COUNT Early AM 05/31/2024 7:2 1 AM RAIL TRACTOR OPERATOR BASIC METABOLIC PANEL Early AM 05/31/2024 7:21 AM RAIL TRACTOR OPERATOR GLUCOSE METER Timed 05/30/2024 5:15 PM RAIL TRACTOR OPERATOR SCAN-CARDIAC STRIP 05/30/2024 4: 52 PM RAIL TRACTOR OPERATOR GLUCOSE METER Timed 05/30/2024 1:04 PM RAIL TRACTOR OPERATOR SCAN CORRESP-IMAGING 05/30/2024 12:50 PM RAIL TRACTOR OPERATOR SCAN CORRESP-EKG RESULTS 05/30/2024 12:28 PM RAIL TRACTOR OPERATOR HEMOGLOBIN Early AM 05/30/2024 8:42 AM RAIL TRACTOR OPERATOR WHITE BLOOD COUNT Early AM 05/30/2024 8:4 2 AM RAIL TRACTOR OPERATOR BASIC METABOLIC PANEL Early AM 05/30/2024 8:42 AM RAIL TRACTOR OPERATOR GLUCOSE METER Timed 05/30/2024 8:09 AM RAIL TRACTOR OPERATOR SCAN-CARDIAC STRIP 05/30/2024 7: 29 AM RAIL TRACTOR OPERATOR GLUCOSE METER Timed 05/29/2024 8:40 PM RAIL TRACTOR OPERATOR GLUCOSE METER Timed 05/29/2024 5:02 PM RAIL TRACTOR OPERATOR GLUCOSE METER Timed 05/29/2024 11:58 AM RAIL TRACTOR OPERATOR SCAN-CARDIAC STRIP 05/29/2024 8: 32 AM RAIL TRACTOR OPERATOR GLUCOSE METER Timed 05/29/2024 7:50 AM RAIL TRACTOR OPERATOR PRO-BNP SUZI 05/29/2024 5:14 AM RAIL TRACTOR OPERATOR HEMOGLOBIN Early AM 05/29/2024 5:14 AM RAIL TRACTOR OPERATOR WHITE BLOOD COUNT Early AM 05/29/2024 5:1 4 AM RAIL TRACTOR OPERATOR BASIC METABOLIC PANEL Early AM 05/29/2024 5:14 AM RAIL TRACTOR OPERATOR GLUCOSE METER Timed 05/28/2024 9:44 PM RAIL TRACTOR OPERATOR GLUCOSE METER Timed 05/28/2024 6:12 PM RAIL TRACTOR OPERATOR GLUCOSE METER Timed 05/28/2024 1:01 PM RAIL TRACTOR OPERATOR SCAN-CARDIAC STRIP 05/28/2024 11 :31 AM RAIL TRACTOR OPERATOR GLUCOSE METER Timed 05/28/2024 9:07 AM RAIL TRACTOR OPERATOR ELECTROLYTE PANEL Early AM 05/28/2024 5:0 2 AM RAIL TRACTOR OPERATOR CBC W PLT NO DIFF Early AM 05/28/2024 5:0 2 AM RAIL TRACTOR OPERATOR GLUCOSE METER Timed 05/27/2024 4:42 PM RAIL TRACTOR OPERATOR XR CHEST 1 VIEW PORTABLE STAT 05/27/2024 4:40 PM RAIL TRACTOR OPERATOR GLUCOSE METER Timed 05/27/2024 12:17 PM RAIL TRACTOR OPERATOR SCAN-CARDIAC STRIP 05/27/2024 11 :15 AM RAIL TRACTOR OPERATOR GLUCOSE METER Timed 05/26/2024 9:40 PM RAIL TRACTOR OPERATOR GLUCOSE METER Timed 05/26/2024 4:52 PM RAIL TRACTOR OPERATOR GLUCOSE METER Timed 05/26/2024 11:24 AM RAIL TRACTOR OPERATOR SCAN-CARDIAC STRIP 05/26/2024 10 :29 AM RAIL TRACTOR OPERATOR GLUCOSE METER Timed 05/26/2024 8:57 AM RAIL TRACTOR OPERATOR GLUCOSE METER Timed 05/25/2024 5:44 PM RAIL TRACTOR OPERATOR SCAN-CARDIAC STRIP 05/25/2024 9: 28 AM RAIL TRACTOR OPERATOR GLUCOSE METER Timed 05/25/2024 8:23 AM RAIL TRACTOR OPERATOR TROPONIN T (HS) ONE TIME Timed 05/25/2024 7:26 AM RAIL TRACTOR OPERATOR SCAN-CARDIAC STRIP 05/25/2024 5: 46 AM RAIL TRACTOR OPERATOR PRO-BNP Today 05/25/2024 5:37 AM RAIL TRACTOR OPERATOR TROPONIN T (HS) ACUTE W/2HR REFLEX STAT 05/25/2024 5:37 AM RAIL TRACTOR OPERATOR PROCALCITONIN Today 05/25/2024 5:37 AM RAIL TRACTOR OPERATOR BASIC METABOLIC PANEL Today 05/25/2024 5:37 AM RAIL TRACTOR OPERATOR CBC W PLT NO DIFF Today 05/25/2024 5:2 3 AM RAIL TRACTOR OPERATOR from Last 3 Months Results * US CAROTID DUPLEX BILATERAL (06/28/2024 3:35 PM RAIL TRACTOR OPERATOR) Anatomical Region Laterality Modality CAROTID, NECK Ultrasound 06/28/2024 3:10 PM RAIL TRACTOR OPERATOR Narrative 06/29/2024 8:31 AM RAIL TRACTOR OPERATOR VASCULAR ULTRASOUND REPORT SHERLY SERRANO : 1940 Study Date: 06/28/2024 3:10:36 PM Age: 84 years Tech: JA Gender: M Referring MD: SNEHA DE LA CRUZ Site: [facility] Study performed: Carotid Indication [...] Accreditation Commission (IAC/Vascular), [email or web address].org/vascular Report generated by [employer]. Final Procedure Note Gary Petersen MD - 06/29/2024 VASCULAR ULTRASOUND REPORT SHERYL SERRANO : 1940 Study Date: 06/28/2024 3:10:36 PM Age: 84 years Tech: JA Gender: M Referring MD: SNEHA DE LA CRUZ Site: [facility] Study performed: Carotid Indication [...] theIntersocietal Accreditation Commission (IAC/Vascular),[email or web address]/vascular Report generated by [employer]. Final us Sneha De La Cruz MD US Final R esult * (ABNORMAL) GLUCOSE METER (06/08/2024 8:11 AM RAIL TRACTOR OPERATOR) Only the most recent of45 resultswithin the time period is included. GLUCOSE METER 150(H) 65 - 100 mg/dL 06/08/2024 8:20 AM RAIL TRACTOR OPERATOR [facility] Blood BLOOD SPECIMEN / Unknown 06/08/2024 8:11 AM RAIL TRACTOR OPERATOR 06/08/2024 8:20 AM RAIL TRACTOR OPERATOR us Phillip Hill DO CHEMISTRY Aleah l Result Performing Organization Address [facility]/ZIP Co de Phone Number [facility] SENDOUT INTERNAL ZIP [phone] [place] [phone] * SCAN-CARDIAC STRIP (06/08/2024 12:57 AM RAIL TRACTOR OPERATOR) us Scanner OTHER Final Result * SCAN-CARDIAC STRIP (06/07/2024 4:16 PM RAIL TRACTOR OPERATOR) us Scanner OTHER Final Result * PLATELET COUNT (06/07/2024 10:53 AM RAIL TRACTOR OPERATOR) Only the most recent of2 resultswithin the time period is included. Pathologist [facility] PLATELET COUNT 169 140 - 440 thou/cu mm 06/07/2024 11:07 AM RAIL TRACTOR OPERATOR [facility] MPV 10.0 6.5 - 11.0 fL 06/07/2024 11:07 AM RAIL TRACTOR OPERATOR [facility] Blood BLOOD SPECIMEN / Unknown Non-Lab Venipuncture / Unknown 06/07/2024 10:53 AM RAIL TRACTOR OPERATOR 06/07/2024 11:04 AM RAIL TRACTOR OPERATOR us Sheyla Chaudhry MD HEMATOLOGY Final Re sult Performing Organization Address [facility]/ZIP Co de Phone Number [facility] SENDOUT INTERNAL ZIP [phone] [place] [phone] * (ABNORMAL) BASIC METABOLIC PANEL (06/07/2024 10:53 AM RAIL TRACTOR OPERATOR) Only the most recent of9 resultswithin the time period is included. SODIUM 135(L) 136 - 145 mmol/L 06/07/2024 11:25 AM [facility] POTASSIUM 4.1 3.5 - 5.1 mmol/L 06/07/2024 11:25 AM [facility] CHLORIDE 96(L) 98 - 107 mmol/L 06/07/2024 11:25 AM [facility] CO2,TOTAL 28 22 - 29 mmol/L 06/07/2024 11:25 AM [facility] ANION GAP 11 5 - 18 06/07/2024 11:25 AM [facility] GLUCOSE 111(H) 70 - 99 mg/dL 06/07/2024 11:25 AM [facility] CALCIUM 8.8 8.8 - 10.4 mg/dL 06/07/2024 11:25 AM [facility] Comment: Reference ranges for this test were updated on 04/12/2024 to reflect our healthy population more accurately. Reference range changes are not retroactively applied to results, but previous results using the same methodology can be interpreted in the context of the new reference range. BUN 35(H) 8 - 23 mg/dL 06/07/2024 11:25 AM [facility] CREATININE 4.83(H) 0.70 - 1.20 mg/dL 06/07/2024 11:25 AM [facility] BUN/CREAT RATIO 7(L) 10 - 20 11:25 AM [facility] eGFR 11(L) >90 mL/min/1. 73m2 06/07/2024 11:25 AM [facility] Comment:As of 2021, eG FR is calculated by the CKD-EPI creatinine equation without race adjustment. eGFR can be influenced by muscle mass, exercise, and diet. The reported eGFR is an estimation only and is only applicable if the renal function is stable. Blood BLOOD SPECIMEN / Unknown Non-Lab Venipuncture / Unknown 06/07/2024 10:53 AM RAIL TRACTOR OPERATOR 06/07/2024 11:04 AM [facility] us Phillip Pack DO CHEMISTRY Final Resul t [facility] SENDOUT [place]NAL ZIP [id number] [place] [address] * SCAN-CARDIAC STRIP (06/07/2024 10:39 AM RAIL TRACTOR OPERATOR) us Scanner OTHER Final Result * SCAN-CARDIAC STRIP (06/06/2024 4:02 PM RAIL TRACTOR OPERATOR) us Scanner OTHER Final Result * SCAN-CARDIAC STRIP (06/05/2024 4:51 PM RAIL TRACTOR OPERATOR) us Scanner OTHER Final Result * CT HEAD BRAIN WO (06/05/2024 4:00 PM RAIL TRACTOR OPERATOR) Anatomical Region Laterality Modality HEAD, BRAIN Computed Tomogra phy 06/05/2024 4:00 PM RAIL TRACTOR OPERATOR Impressions 06/05/2024 4:51 PM RAIL TRACTOR OPERATOR 1. No CT evidence for acute intracranial process. 2. Brain atrophy and presumed chronic microvascular ischemic changes as above. Narrative 06/05/2024 4:51 PM RAIL TRACTOR OPERATOR For Patients: As a result of the Cures Act, medical imaging exams and procedure reports are released immediately into your electronic medical record. You may view this report before your referring provider. If you have questions, please contact your health care provider. EXAM: CT HEAD BRAIN WO LOCATION: [facility] MEDICAL [facility]AG[facility] DATE: 06/05/2024 INDICATION: Mental status [...] For Patients: As a result of the s Act, medical imagingexams and procedure reports are released immediately into your electronicmedical record. You may view this report before your referring provider.If you have questions, please contact your health care provider. EXAM: CT HEAD BRAIN WO LOCATION: [facility] DATE: 06/05/2024 INDICATION: Mental status [...] esult * SCAN-CARDIAC STRIP (06/05/2024 2:52 PM RAIL TRACTOR OPERATOR) us Scanner OTHER Final Result * SCAN-CARDIAC STRIP (06/05/2024 2:52 PM RAIL TRACTOR OPERATOR) us Scanner OTHER Final Result * XR Foot 3 Views Left Portable- Non-Weight Bearing (06/05/2024 8:56 AM RAIL TRACTOR OPERATOR) Anatomical Region Laterality Modality FEET, FOOT L Computed Radiogr aphy 06/05/2024 8:56 AM RAIL TRACTOR OPERATOR Impressions 06/05/2024 9:34 AM RAIL TRACTOR OPERATOR Interval amputation right great toe at the level of the base of the proximal phalanx. No new bony erosive change to suggest osteomyelitis. 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 Osteopenia. No acute fracture. Arteriovascular calcifications. Narrative 06/05/2024 9:34 AM RAIL TRACTOR OPERATOR For Patients: As a result of the [...] TISSUE CULTURE, STAIN (AEROBIC) (06/05/2024 7:42 AM RAIL TRACTOR OPERATOR) CULTURE RESULT(A) 06/08/2024 9:33 AM RAIL TRACTOR OPERATOR [facility]-CE NTRAL LABORATORY CULTURE 1+ Staphylococcus aureus 06/08/2024 9:33 AM RAIL TRACTOR OPERATOR [facility]- NTRTX LABORATORY GRAM STAIN 1+ PMNs 06/08/2024 9:33 AM RAIL TRACTOR OPERATOR [facility] GRAM STAIN No Epithelial cells 06/08/2024 9:33 AM RAIL TRACTOR OPERATOR [facility] GRAM STAIN 1+ RBCs 06/08/2024 9:33 AM RAIL TRACTOR OPERATOR [facility] GRAM STAIN No organisms seen 025 9:33 AM RAIL TRACTOR OPERATOR [facility] GRAM STAIN Gram stain performed by [place] 06/08/2024 9:33 AM RAIL TRACTOR OPERATOR [facility] Bone (Left Great Toe) Non-Blood / Unknown 06/05/2024 7:42 AM RAIL TRACTOR OPERATOR 06/05/2024 8:36 AM RAIL TRACTOR OPERATOR Narrative Organism Antibiotic Method Susceptibility Staphylococcus aureus OXACILLIN <=0.25: S Comment:Oxacillin wetzel sceptible should not be interpreted as penicillin or amoxicillin susceptible. Staphylococcus aureus CLINDAMYCIN 0.25: S Staphylococcus aureus DOXYCYCLINE <=0.5: S Staphylococcus aureus CEFAZOLIN S Staphylococcus aureus TRIMETHOPRIM/SULF <=0.5/9.5: S Phillip Hutton DPM MICROBIOLOGY Final Resul t Performing Organization Address City/[facility]/ZIP Co de Phone Number [facility] [address] [place] [address], [facility] SENDOUT INTERNAL ZIP [address] [place] [address] * ANAEROBIC CULTURE (06/05/2024 7:42 AM RAIL TRACTOR OPERATOR) Only the most recent of2 resultswithin the time period is included. CULTURE No anaerobes isolated 06/10/2024 10:03 AM RAIL TRACTOR OPERATOR [facility] TRAL LABORATORY Bone (Left Great Toe) Non-Blood / Unknown 06/05/2024 7:42 AM RAIL TRACTOR OPERATOR 06/05/2024 8:36 AM RAIL TRACTOR OPERATOR Phillip Hutton DPM MICROBIOLOGY Final Resul t Performing Organization Address [facility] Co de Phone Number [facility] [address] [place] [address], * PATH TISSUE EXAM (06/05/2024 7:40 AM RAIL TRACTOR OPERATOR) Case Report Pathology Report Case: [id number] Authorizing Provider: Phillip Hutton DPM Collected: 06/05/2024 0740 Ordering Location: [facility] Received: 06/06/2024 0741 Pathologist: Zohra Lou DO Specimen: Left Great Toe, LEFT GREAT HALLUX 06/09/2024 11:27 AM RAIL TRACTOR OPERATOR [facility]-C ENTRAL LABORATORY Final Diagnosis A) FOOT, LEFT, GREAT TOE/HALLUX, AMPUTATION: 1. Focally acute and chronic osteomyelitis 2. Overlying gangrenous ulceration is present 3. Presumed proximal bone margin is negative for osteomyelitis (see comment) 4. Negative for malignancy 06/09/2024 11:27 AM [facility] MD [facility]-C ENTRAL LABORATORY Comment The specimen in this case was submitted in multiple fragments, and the bone margin was not separately submitted or designated specifically. Gross examination reveals one bone fragment with a flattened surface which is presumed to be the true margin, and this fragment is negative for osteomyelitis. 06/09/2024 11:27 AM [facility] MD [facility]-C ENTRAL LABORATORY Clinical Information Mr. Serrano is a 84 y.o. who has a history of diabetes mellitus, chronic kidney disease, peripheral arterial disease and left lower extremity wounds with suspected osteomyelitis of the distal and proximal phalanx of the left great toe. The patient underwent partial hallux amputation of the left foot. 06/09/2024 11:27 AM [facility]-C ENTRAL LABORATORY Gross Description A) Received in [...] on cut surface. No lesion is identified. Hostel Parent sections are submitted: 1. Great toe: skin ulcer to nearest margin and bone underlying ulcer (decal) 2-3. Two pieces of flattened bone fragments: Presumed en face bony margin in 2 (decal) 4. Fibrotic soft tissue TTP 06/06/2024 06/09/2024 11:27 AM [facility] MD [facility]-C ENTRAL LABORATORY Microscopic Description The final diagnosis is based on microscopic examination of appropriate sections of all specimens. 06/09/2024 11:27 AM RAIL TRACTOR OPERATOR [facility] Additional Information Interpreted at [facility], Central Laboratory - [address] [address] 06/09/2024 11:27 AM RAIL TRACTOR OPERATOR [facility]-C ENTRAL LABORATORY Tissue (Left Great Toe) 06/05/2024 7:40 AM RAIL TRACTOR OPERATOR 06/06/2024 7:41 AM RAIL TRACTOR OPERATOR us Phillip Hutton DPStefany PATHOLOGY/CYTOLOGY Final Re sult [facility]CENTRAL LABORATORY [address] [place] [address], [facility] SENDOUT INTERNAL ZIP [phone] [place] [address] * SCAN-CARDIAC STRIP (06/04/2024 8:40 PM RAIL TRACTOR OPERATOR) us Scanner OTHER Final Result * SCAN-CARDIAC STRIP (06/04/2024 8:40 PM RAIL TRACTOR OPERATOR) us Scanner OTHER Final Result * SCAN-CARDIAC STRIP (06/04/2024 8:15 AM RAIL TRACTOR OPERATOR) us Scanner OTHER Final Result * SCAN-CARDIAC STRIP (06/04/2024 2:25 AM RAIL TRACTOR OPERATOR) us Scanner OTHER Final Result * (ABNORMAL) Hemoglobin - MANAGER MARKETING COMMUNICATION (06/03/2024 8:05 PM RAIL TRACTOR OPERATOR) Only the most recent of6 resultswithin the time period is included. HEMOGLOBIN 8.0(L) 13.5 - 17.5 g/dL 06/03/2024 8:18 PM RAIL TRACTOR OPERATOR [facility] MCV 93 80 - 100 fL 06/03/2024 8:18 PM RAIL TRACTOR OPERATOR [facility] Blood BLOOD SPECIMEN / Unknown Line/Port / Unknown 06/03/2024 8:05 PM RAIL TRACTOR OPERATOR 06/03/2024 8:12 PM RAIL TRACTOR OPERATOR Narrative [facility] - 06/03/2024 8:18 PM RAIL TRACTOR OPERATOR For chest pain, tachycardia, or hypotension present. Emily Montes De Oca MD HEMATOLOGY Final R esult [facility] SENDOUT INTERNAL ZIP [phone] [place] [address] * (ABNORMAL) ACTIVATED CLOTTING TIME [id number] ACT (06/03/2024 3:09 PM RAIL TRACTOR OPERATOR) Only the most recent of2 resultswithin the time period is included. [facility] ACTIVATED CLOTTING TIME, POCT 211(H) 74 - 125 sec 06/03/2024 3:33 PM RAIL TRACTOR OPERATOR [facility] Blood BLOOD SPECIMEN / Unknown 06/03/2024 3:09 PM RAIL TRACTOR OPERATOR 06/03/2024 3:33 PM RAIL TRACTOR OPERATOR Emily Montes De Oca MD HEMATOLOGY Final R esult Performing Organization Address City/[facility]/ZIP Co de Phone Number [facility] SENDOUT INTERNAL ZIP [phone] [place] [address] * (ABNORMAL) CBC W PLT NO DIFF (06/03/2024 9:59 AM RAIL TRACTOR OPERATOR) Only the most recent of3 resultswithin the time period is included. [facility] WHITE BLOOD COUNT 5.1 4.5 - 11.0 thou/cu mm 06/03/2024 10:14 AM [facility] RED BLOOD COUNT 2.39(L) 4.30 - 5.90 mil/cu mm 06/03/2024 10:14 AM [facility] HEMOGLOBIN 7.6(L) 13.5 - 17.5 g/dL 06/03/2024 10:14 AM [facility] HEMATOCRIT 22.1(L) 37.0 - 53.0 % 06/03/2024 10:14 AM [facility] MCV 93 80 - 100 fL 06/03/2024 10:14 AM [facility] MCH 31.8 26.0 - 34.0 pg 06/03/2024 10:14 AM [facility] MCHC 34.4 32.0 - 36.0 g/dL 06/03/2024 10:14 AM [facility] RDW 14.0 11.5 - 15.5 % 06/03/2024 10:14 AM [facility] PLATELET COUNT 165 140 - 440 thou/cu mm 06/03/2024 10:14 AM [facility] MPV 10.6 6.5 - 11.0 fL 06/03/2024 10:14 AM [facility] NRBC 0.0 % 06/03/2024 10:14 AM [facility] ABS NRBC 0.0 thou /cu mm 06/03/2024 10:14 AM [facility] Blood BLOOD SPECIMEN / Unknown Butterfly / Unknown 06/03/2024 9:59 AM RAIL TRACTOR OPERATOR 06/03/2024 10:06 AM RAIL TRACTOR OPERATOR Elier ESTRELLA HEMATOLOGY Final Resu lt [facility] SENDOUT INTERNAL ZIP [phone] [place] [address] * SCAN-CARDIAC STRIP (06/03/2024 9:43 AM RAIL TRACTOR OPERATOR) us Scanner OTHER Final Result * IR PICC LINE (06/02/2024 3:26 PM RAIL TRACTOR OPERATOR) Anatomical Region Laterality Modality X-Ray Angiograph y, Other, Other 06/02/2024 3:26 PM RAIL TRACTOR OPERATOR Impressions 06/02/2024 4:05 PM RAIL TRACTOR OPERATOR Successful placement of PICC line. Narrative 06/02/2024 4:05 PM RAIL TRACTOR OPERATOR For Patients: As a result of the Century Cures Act, medical imaging exams and procedure reports are released immediately into your electronic medical record. You may view this report before your referring provider. If you have questions, please contact your health care provider. [facility] LOCATION: [facility] MEDICAL [facility]AG[facility] DATE: 06/02/2024 PROCEDURE: PERIPHERALLY INSERTED CENTRAL CATHETER (PICC) PLACEMENT INTERVENTIONAL RADIOLOGIST: Phillpi Conti MD. INDICATION: Patient needs long-term IV [...] Prior to the procedure, the surgeon and hospital nursing assistant performed hand hygiene and wore hat, [...] brachial vein was accessed and a 5 Hungarian, 38 cm, double-lumen power PICC Solo peripherally [...] questions, please contact your health care provider. [facility] LOCATION: [facility] MED[facility] DATE: 06/02/2024 PROCEDURE: PERIPHERALLY INSERTED [...] drape. Prior to the procedure, thesurgeon and hospital nursing assistant performed hand hygiene and wore hat, [...] brachial vein was accessed and a 5 Hungarian, 38 cm, double-lumenpower PICC Solo peripherally inserted [...] MR FOOT LEFT WO (06/02/2024 11:30 AM RAIL TRACTOR OPERATOR) Anatomical Region Laterality Modality FOOT L Magnetic Resonan ce, Other 06/02/2024 11:3 0 AM RAIL TRACTOR OPERATOR Impressions 06/02/2024 11:56 AM RAIL TRACTOR OPERATOR 1. Soft tissue ulceration at the dorsal [...] radiopaque foreign body. Narrative 06/02/2024 11:56 AM RAIL TRACTOR OPERATOR For Patients: As a result of the Cures Act, medical imaging exams and procedure reports are released immediately into your electronic medical record. You may view this report before your referring provider. If you have questions, please contact your health care provider. EXAM: MR FOOT LEFT WO LOCATION: [facility] DATE: 06/02/2024 INDICATION: Ulcer, question [...] provider. EXAM: MR FOOT LEFT WO LOCATION: [facility] DATE: 06/02/2024 INDICATION: Ulcer, question [...] Result * SCAN-CARDIAC STRIP (06/02/2024 9:44 AM RAIL TRACTOR OPERATOR) us Scanner OTHER Final Result * WHITE BLOOD COUNT (06/02/2024 6:15 AM RAIL TRACTOR OPERATOR) Only the most recent of5 resultswithin the time period is included. WHITE BLOOD COUNT 5.2 4.5 - 11.0 thou/cu mm 06/02/2024 6:33 AM RAIL TRACTOR OPERATOR [facility] NRBC 0.0 % 06/02/2024 6:33 AM RAIL TRACTOR OPERATOR [facility] ABS NRBC 0.0 thou /cu mm 06/02/2024 6:33 AM RAIL TRACTOR OPERATOR [facility] Blood BLOOD SPECIMEN / Unknown Non-Lab Venipuncture / Unknown 06/02/2024 6:15 AM RAIL TRACTOR OPERATOR 06/02/2024 6:26 AM RAIL TRACTOR OPERATOR us Luís Porter MD HEMATOLOGY Fi nal Result [facility] SENDOUT INTERNAL ZIP [phone] [place] [address] * US ARTERIAL LOWER EXTREMITY W RITA BILATERAL (06/01/2024 8:15 PM RAIL TRACTOR OPERATOR) Anatomical Region Laterality Modality LEGS Ultrasound 06/01/2024 8:15 PM RAIL TRACTOR OPERATOR Impressions 06/01/2024 8:45 PM RAIL TRACTOR OPERATOR 1. RIGHT LOWER EXTREMITY: Non calculable RITA [...] stenosis is visualized. Narrative 06/01/2024 8:45 PM RAIL TRACTOR OPERATOR For Patients: As a result of the Cures Act, medical imaging exams and procedure reports are released immediately into your electronic medical record. You may view this report before your referring provider. If you have questions, please contact your health care provider. EXAM: 1. RESTING ANKLE-BRACHIAL INDICES (ABIs) 2. DUPLEX ARTERIAL ULTRASOUND OF THE LOWER EXTREMITIES BILATERALLY LOCATION: [facility] MEDICAL IMAGING DATE: 06/01/2024 INDICATION: Decreased extremity [...] Velocities described below. RIGHT LOWER EXTREMITY (cm/s): SENIOR FINANCIAL ANALYST: 88, T PFA: 209, T SFA (proximal): 117, T SFA (mid): 262, B SFA (distal): 73, B Pop A Prox: 35, B Pop A Dist: 45, B OTC CLERK Dist: 101, B SULTANA: No significant flow. DPA: No significant flow. (M=monophasic, B=biphasic, T=triphasic) LEFT LOWER EXTREMITY (cm/s): SENIOR FINANCIAL ANALYST: 95, T PFA: 205, T SFA (proximal): 149, T SFA (mid): 111, T SFA (distal): 132, T Pop A Prox: 76, B Pop A Dist: 60, M OTC CLERK Dist: 45, M SULTANA: No significant flow. [...] ULTRASOUND OF THE LOWER EXTREMITIES BILATERALLY LOCATION: [facility] MED[facility]AG[facility] DATE: 06/01/2024 INDICATION: Decreased extremity [...] Velocities described below. RIGHT LOWER EXTREMITY (cm/s): SENIOR FINANCIAL ANALYST: 88, T PFA: 209, T SFA (proximal): 117, T SFA (mid): 262, B SFA (distal): 73, B Pop A Prox: 35, B Pop A Dist: 45, B OTC CLERK Dist: 101, B SULTANA: No significant flow. DPA: No significant flow. (M=monophasic, B=biphasic, T=triphasic) LEFT LOWER EXTREMITY (cm/s): SENIOR FINANCIAL ANALYST: 95, T PFA: 205, T SFA (proximal): 149, T SFA (mid): 111, T SFA (distal): 132, T Pop A Prox: 76, B Pop A Dist: 60, M OTC CLERK Dist: 45, M SULTANA: No significant flow. [...] Result * SCAN-CARDIAC STRIP (06/01/2024 7:51 AM RAIL TRACTOR OPERATOR) us Scanner OTHER Final Result * VANCOMYCIN (06/01/2024 6:29 AM RAIL TRACTOR OPERATOR) VANCOMYCIN 24.4 ug/mL 06/01/2024 7:26 AM RAIL TRACTOR OPERATOR [facility] Comment:No Reference Range D efined. DATE OF LAST DOSE,RANDOM Not Given 06/01/2024 7:26 AM RAIL TRACTOR OPERATOR [facility] TIME OF LAST DOSE,RANDOM Not Given 06/01/2024 7:26 AM RAIL TRACTOR OPERATOR [facility] Blood BLOOD SPECIMEN / Unknown Venipuncture / Unknown 06/01/2024 6:29 AM RAIL TRACTOR OPERATOR 06/01/2024 6:58 AM RAIL TRACTOR OPERATOR [facility] Ariella Montes De Oca MD CHEMISTRY Final R esult [facility] SENDOUT INTERNAL ZIP [phone] [place] [address] * (ABNORMAL) AEROBIC BACTERIAL CULTURE, STAIN (05/31/2024 4:33 PM RAIL TRACTOR OPERATOR) CULTURE RESULT(A) 06/03/2024 11:21 AM RAIL TRACTOR OPERATOR [facility]-CE [facility]TX LABORATORY CULTURE 3+ Staphylococcus aureus 06/03/2024 11:21 AM RAIL TRACTOR OPERATOR [facility]- N[facility]TX LABORATORY CULTURE 3+ Achromobacter xylosoxidans 06/03/2024 11:21 AM RAIL TRACTOR OPERATOR [facility]- NTRAL LABORATORY CULTURE 3+ Mixed brigette present 06/03/2024 11:21 AM RAIL TRACTOR OPERATOR [facility] GRAM STAIN 1+ PMNs 06/03/2024 11:21 AM RAIL TRACTOR OPERATOR [facility] GRAM STAIN No Epithelial cells 06/03/2024 11:21 AM RAIL TRACTOR OPERATOR [facility] GRAM STAIN 1+ RBCs 06/03/2024 11:21 AM RAIL TRACTOR OPERATOR [facility] GRAM STAIN 3+ Gram Positive Cocci 06/03/2024 11:21 AM RAIL TRACTOR OPERATOR [facility] GRAM STAIN Gram stain performed by [place] 06/03/2024 11:21 AM RAIL TRACTOR OPERATOR [facility] Other (Other) Non-Blood / Unknown 05/31/2024 4:33 PM RAIL TRACTOR OPERATOR 05/31/2024 4:42 PM RAIL TRACTOR OPERATOR Narrative [facility]-CENTRAL LABORATORY - 06/03/2024 11:21 AM RAIL TRACTOR OPERATOR Mixed Brigette; No beta-Strep, Strep. pneumoniae, or Pseudomonas aeruginosa Organism Antibiotic Method Susceptibility Staphylococcus aureus OXACILLIN 0.5: S Comment:Oxacillin wetzel sceptible should not be interpreted as penicillin or amoxicillin susceptible. Staphylococcus aureus CLINDAMYCIN 0.25: S Staphylococcus aureus DOXYCYCLINE <=0.5: S Staphylococcus aureus CEFAZOLIN S Staphylococcus aureus TRIMETHOPRIM/SULF <=0.5/9.5: S Achromobacter xylosoxidans TRIMETHOPRIM/SULF <=06/26: S Achromobacter xylosoxidans LEVOFLOXACIN 4: I Achromobacter xylosoxidans PIPERACILLIN/TAZO <=4: S Achromobacter xylosoxidans MEROPENEM <=0.25: S Francisca Roman NP MICROBIOLOGY Final Result [facility]AL LABORATORY [address] [place] [address], [facility] SENDOUT INTERNAL ZIP [address] [place] [address] * XR FOOT 3 VIEWS LEFT (05/31/2024 1:53 PM RAIL TRACTOR OPERATOR) Anatomical Region Laterality Modality FEET, FOOT L Computed Radiogr aphy 05/31/2024 1:53 PM RAIL TRACTOR OPERATOR Impressions 05/31/2024 1:59 PM RAIL TRACTOR OPERATOR Osteopenia. Marked calcified atherosclerosis. Neuropathic changes left midfoot. Findings have progressed since 2011. No evidence of osteomyelitis. Narrative 05/31/2024 1:59 PM RAIL TRACTOR OPERATOR For Patients: As a result of the [...] TTE COMPLETE WO CONTRAST (05/31/2024 12:49 PM RAIL TRACTOR OPERATOR) EJECTION FRACTION 40-45% PROSOLV Anatomical Region Laterality Modality Ultrasound 05/31/2024 12:0 6 PM RAIL TRACTOR OPERATOR Narrative 05/31/2024 1:23 [place] [address] Main: [email or web address] Transthoracic Echo Report SHERYL SERRANO ID: [id number] Age: 84 : 1940 Ordering Provider: EMILY MONTES DE OCA Exam Date: 05/31/2024 12:06 Gender: M Scouring Machine Operator: SHIVAM Height: 72 in BSA: 2.06 m [...] ZScore: -0.31 Leidy Stephenson MD (Electronically Signed) [facility] Final Date: 31 May 2024 13:23 ICD-10 Codes: I24.8 Procedure Note Leidy Stephenson MD - 05/31/2024 [place] [address] Main: [email or web address] Transthoracic Echo Report SHERYL SERRANO Makayla ID: [id number] Age: 84 : 1940 Ordering Provider:EMILY MONTES DE OCA Exam Date: 05/31/2024 12:06 Gender: M Scouring Machine Operator: SHIVAM Height: 72 in BSA: 2.06 m [...] ZScore: -0.31 Leidy Stephenson MD (Electronically Signed) [facility] Accredited Site Final Date: 31 May 2024 13:23 ICD-10 Codes: I24.8 us Anca Ariella Montes De Oca MD ECHO ORD Final R esult * SCAN-CARDIAC STRIP (05/31/2024 7:47 AM RAIL TRACTOR OPERATOR) us Scanner OTHER Final Result * HEMOGLOBIN A1C (05/31/2024 7:21 AM RAIL TRACTOR OPERATOR) HEMOGLOBIN A1C SCREENING 4.9 <=6.4 % 05/31/2024 1:53 PM RAIL TRACTOR OPERATOR [facility] Blood BLOOD SPECIMEN / Unknown Butterfly / Unknown 05/31/2024 7:21 AM RAIL TRACTOR OPERATOR 05/31/2024 7:44 AM RAIL TRACTOR OPERATOR Narrative [facility] - 05/31/2024 1:53 PM RAIL TRACTOR OPERATOR (<5.7%) Normal (5.7% to 6.4%) Indicates prediabetes (>=6.5%) Confirms diabetes Falsely low levels may be seen with: Recent Transfusion, Recent Significant Blood Loss, Hemolytic Diseases, or Falsely elevated levels may be seen with: Untreated Anemias, Splenectomy us Francisca Roman NP CHEMISTRY Final Result Performing Organization Address [facility]/ZIP Co de Phone Number [facility] SENDOUT INTERNAL ZIP [address] [place] [phone] * MAGNESIUM (05/31/2024 7:21 AM RAIL TRACTOR OPERATOR) Pathologist [facility] MAGNESIUM 2.0 1.6 - 2.4 mg/dL 05/31/2024 10:05 AM RAIL TRACTOR OPERATOR [facility] Blood BLOOD SPECIMEN / Unknown Butterfly / Unknown 05/31/2024 7:21 AM RAIL TRACTOR OPERATOR 05/31/2024 7:44 AM RAIL TRACTOR OPERATOR us Emily Montes De Oca MD CHEMISTRY Final R esult Performing Organization Address [facility]/ZIP Co de Phone Number [facility] SENDOUT INTERNAL ZIP [phone] [place] [phone] * SCAN-CARDIAC STRIP (05/30/2024 4:52 PM RAIL TRACTOR OPERATOR) us Scanner OTHER Final Result * SCAN CORRESP-IMAGING (05/30/2024 12:50 PM RAIL TRACTOR OPERATOR) Anatomical Region Laterality Modality Other Narrative 05/30/2024 12:50 PM RAIL TRACTOR OPERATOR Ordered by an unspecified provider. us Other Clinical Staff OTHER Final Resul t * SCAN CORRESP-EKG RESULTS (05/30/2024 12:28 PM RAIL TRACTOR OPERATOR) Narrative 05/30/2024 12:28 PM RAIL TRACTOR OPERATOR Ordered by an unspecified provider. us Other Clinical Staff OTHER Final Resul t * SCAN-CARDIAC STRIP (05/30/2024 7:29 AM RAIL TRACTOR OPERATOR) us Scanner OTHER Final Result * SCAN-CARDIAC STRIP (05/29/2024 8:32 AM RAIL TRACTOR OPERATOR) us Scanner OTHER Final Result * (ABNORMAL) PRO-BNP (05/29/2024 5:14 AM RAIL TRACTOR OPERATOR) Only the most recent of2 resultswithin the time period is included. PRO-BNP >70,000(H) <450 pg/mL 05/29/2024 12:54 PM RAIL TRACTOR OPERATOR [facility] Blood BLOOD SPECIMEN / Unknown Butterfly / Unknown 05/29/2024 5:14 AM RAIL TRACTOR OPERATOR 05/29/2024 5:25 AM RAIL TRACTOR OPERATOR Narrative [facility] - 05/29/2024 12:54 PM RAIL TRACTOR OPERATOR The following cut-points have been suggested for [...] Porter MD SEND OUTS Fi nal Result [facility] SENDOUT INTERNAL ZIP [phone] [place] [address] * SCAN-CARDIAC STRIP (05/28/2024 11:31 AM RAIL TRACTOR OPERATOR) us Scanner OTHER Final Result * (ABNORMAL) ELECTROLYTE PANEL (05/28/2024 5:02 AM RAIL TRACTOR OPERATOR) SODIUM 135(L) 136 - 145 mmol/L 05/28/2024 6:15 AM RAIL TRACTOR OPERATOR [facility] POTASSIUM 4.0 3.5 - 5.1 mmol/L 05/28/2024 6:15 AM RAIL TRACTOR OPERATOR [facility] LABORATORY CHLORIDE 97(L) 98 - 107 mmol/L 05/28/2024 6:15 AM RAIL TRACTOR OPERATOR [facility] CO2,TOTAL 29 22 - 29 mmol/L 05/28/2024 6:15 AM RAIL TRACTOR OPERATOR [facility] ANION GAP 9 5 - 18 05/28/2024 6:15 AM [facility] Blood BLOOD SPECIMEN / Unknown Venipuncture / Unknown 05/28/2024 5:02 AM RAIL TRACTOR OPERATOR 05/28/2024 5:30 AM RAIL TRACTOR OPERATOR Ezekiel Soto DO CHEMISTRY Aleah l Result [facility] SENDOUT INTERNAL ZIP [phone] [place] [address] * XR CHEST 1 VIEW PORTABLE (05/27/2024 4:40 PM RAIL TRACTOR OPERATOR) Anatomical Region Laterality Modality HEART, THORAX, CHEST Computed Ra diography 05/27/2024 4:40 PM RAIL TRACTOR OPERATOR Impressions 05/27/2024 4:55 PM RAIL TRACTOR OPERATOR Sternotomy. Right pacemaker. Small left effusion with atelectasis. No right effusion. Bilateral calcified granulomas. Right lung clear. Calcified mediastinal and bilateral hilar lymph nodes. Narrative 05/27/2024 4:55 PM RAIL TRACTOR OPERATOR For Patients: As a result of the Century Cures Act, medical imaging exams and procedure reports are released immediately into your electronic medical record. You may view this report before your referring provider. If you have questions, please contact your health care provider. EXAM: XR CHEST 1 VIEW PORTABLE LOCATION: [facility] MEDICAL [facility]AG[facility] DATE: 05/27/2024 INDICATION: SOB Other [...] EXAM: XR CHEST 1 VIEW PORTABLE LOCATION: [facility] MED[facility] DATE: 05/27/2024 INDICATION: SOB Other re-assess pleural effusion COMPARISON: 02/26/23 xray, 11/18/19 xray IMPRESSION: Sternotomy. Right pacemaker. Small left effusion with atelectasis. Noright effusion. Bilateral calcified granulomas. Right lung clear.Calcified mediastinal and bilateral hilar lymph nodes. us Ezekiel Vinicioshannon Brittany DO GENERAL IMAGING Aleah l Result * SCAN-CARDIAC STRIP (05/27/2024 11:15 AM RAIL TRACTOR OPERATOR) us Scanner OTHER Final Result * SCAN-CARDIAC STRIP (05/26/2024 10:29 AM RAIL TRACTOR OPERATOR) us Scanner OTHER Final Result * SCAN-CARDIAC STRIP (05/25/2024 9:28 AM RAIL TRACTOR OPERATOR) us Scanner OTHER Final Result * (ABNORMAL) TROPONIN T (HS) ONE TIME (05/25/2024 7:26 AM RAIL TRACTOR OPERATOR) TROPONIN T HS 248(H) 6-15 ng/L ng/L 05/25/2024 8:23 AM RAIL TRACTOR OPERATOR [facility] Blood BLOOD SPECIMEN / Unknown Venipuncture / Unknown 05/25/2024 7:26 AM RAIL TRACTOR OPERATOR 05/25/2024 8:01 AM RAIL TRACTOR OPERATOR us Sheyla Chaudhry MD CHEMISTRY Final Re sult [facility] SENDOUT INTERNAL ZIP [phone] [place] [address] * SCAN-CARDIAC STRIP (05/25/2024 5:46 AM RAIL TRACTOR OPERATOR) us Scanner OTHER Final Result * (ABNORMAL) TROPONIN T (HS) ACUTE W/2HR REFLEX (05/25/2024 5:37 AM RAIL TRACTOR OPERATOR) TROPONIN T HS 256(H) 6-15 ng/L ng/L 05/25/2024 6:17 AM RAIL TRACTOR OPERATOR [facility] Blood BLOOD SPECIMEN / Unknown Venipuncture / Unknown 05/25/2024 5:37 AM RAIL TRACTOR OPERATOR 05/25/2024 5:38 AM RAIL TRACTOR OPERATOR Narrative [facility] - 05/25/2024 6:17 AM RAIL TRACTOR OPERATOR hs-cTnT (Elecsys Troponin T Gen 5) concentration [...] low risk in emergency department patient population. Sheyla Chaudhry MD CHEMISTRY Final Re sult [facility] SENDOUT INTERNAL ZIP [phone] [place] [address] * PROCALCITONIN (05/25/2024 5:37 AM RAIL TRACTOR OPERATOR) PROCALCITONIN 0.47 ng/ml 05/25/2024 6:18 AM RAIL TRACTOR OPERATOR [facility] Blood BLOOD SPECIMEN / Unknown Venipuncture / Unknown 05/25/2024 5:37 AM RAIL TRACTOR OPERATOR 05/25/2024 5:38 AM RAIL TRACTOR OPERATOR Narrative [facility] - 05/25/2024 6:18 AM RAIL TRACTOR OPERATOR Procalcitonin for initial assessment of Lower Respiratory [...] any concentrations < 2 ng/mL are obtained. us Sheyla Chaudhry MD SEND OUTS Final Re sult [facility] SENDOUT INTERNAL ZIP [phone] [place] [address] from Last 3 Months Insurance MEDICARE RR PART A HB ONLY [facility] [address] [place] [id number] [facility] [address] [place] [id number] Advance Directives Documents on File Type Date Recorded Patient Hostel Parent Expl anation Power of Medical Surgical Tech 06/05/2019 06/05/2019 Healthcare Directive 06/05/2019 019 Power of Medical Surgical Tech 07/19/2006 * Full Code (Latest Code Status [...] 11:52 AM 11/02/2018 9:20 PM Care Teams Product Management Manager Relationship Specialty Start Date End Date Anna [place] [address] PCP - General Family Practice 10/06/22
--- OUTSIDE RECORDS SUMMARY | 2024-07-06 13:47 | XMS_ITS | Encounter Summary ---
Author Organization [facility] Address [address] [place] [address] Care Team Providers Care Wood Pole Treater Name Role Phone Unavailable Primary Care Provider Unavailabl e Encounter Details Date Type Department Care Team (Late st Contact Info) Description 06/20/2024 Treatment [facility] [address] [place] [address] Darren Tran MD [address] [place] [address] Social History Tobacco Use Types [...] care for end stage renal disease. Attending Gum Scoring Machine Operator: DARREN TRAN Dialysis Location: [facility] Schedule: Shift: 2 OVERVIEW [...] much better. HOME MEDICATIONS Medications reviewed. Current [facility] Outpatient Medications albuterol sulfate 90 mcg/actuation [...] capsule by mouth once a day. Dialyvite [phone] [id number] tablet Take 1 tablet by mouth every [...] 97.4*F Current Dialysis Vitals BP Sit: 151/69 AP/DIRECTOR OF LAND: -160/220 Pulse: 69 TREATMENT MEDICATIONS ORDERS Iron [...]
--- OUTSIDE RECORDS SUMMARY | 2024-07-06 13:47 | XMS_ITS | Continuity of Care Document ---
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 Role Phone [facility] Unavailable Unavailable [...] colonoscopy and polypectomy 12/10, tubular adenoma at [facility] Cataract, Senile, Unsp Active Condition [facility] Chronic cough Active Condition [facility] Chronic obstructive lung disease Active Condition [facility] Chronic rhinitis Active Condition [facility] Coronary arteriosclerosis Active Condition Nov 10 7 Entered By: LIZZETTE WEI Comment: s/p [id number] at [facility] in 07/15 [facility] Diabetes mellitus Active Condition [facility] Diabetic neuropathy Active Condition [facility] Diabetic renal disease Active Condition Dec 02, 2018 Entered By: CARLOS DALTON Comment: 10/2018: started hemodialysis @ [facility] in [facility] 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 [facility] Dyslipidemia Active Condition [facility] End-stage renal disease Active Condition [facility] Essential hypertension Active Condition [facility] Exposure to potentially hazardous substance Active Condition Dec 18, 2022 Entered By: CORRINE MATHEWS Comment: Asbestos [facility] Ganglion of wrist Active Condition [facility] Gastroesophageal reflux disease without esophagitis Active Condition [facility] Hemorrhoid Active Condition [facility] Hyperparathyroidism due to renal insufficiency Active Condition [facility] Hypothyroidism Active Condition [facility] Incontinence of feces Active Condition [facility] Indwelling catheter inserted Active Condition [facility] Obstructive Sleep Apnea of Adult (SCT [id number]) Active Condition October 28, 2022 Entered By: KINGS ROCHA Comment: APAP: 10-20, Ramp: 5x10 min, [place] [facility] Oropharyngeal dysphagia Active Condition Dec 14, 2022 Entered By: CORRINE MATHEWS Comment: 2013 PATHOLOGY TECH eval in chart [facility] Psoriasis Nos [facility] Shared care - advisor consultant and GP Active Condition Dec 02 Entered By: CARLOS DALTON Comment: [phone] ov 2020 Entered By: CARLOS DALTON Comment: Lift Slab Operator: Dr James Pérez [phone] ov 2020 Entered By: CARLOS DALTON Comment: [facility] Cough (ICD-9-CM 786.2) Inactive Condition 03/23/2013 [facility] Diabetic Foot Ulcer (ICD-9-CM 250.80/707.8) Inactive Condition 03/23/2013 [facility] Diagnosis: ICD-10-CM I25.10 Athscl heart disease of [place] coronary artery w/o ang pctrs Active Diagnosis [facility] Diagnosis: ICD-10-CM R26.89 Other abnormalities of gait and mobility Active Diagnosis [facility] Diagnosis: ICD-10-CM M79.646 Pain in unspecified finger(s) Active Diagnosis [facility] Diagnosis: ICD-10-CM H90.3 Sensorineural hearing loss, bilateral Active Diagnosis [facility] Diagnosis: ICD-10-CM Z01.118 Encntr for exam of ears and hearing w oth abnormal findings [facility] Diagnosis: ICD-10-CM H04.129 Dry eye syndrome of unspecified lacrimal gland Active Diagnosis [facility] Diagnosis: ICD-10-CM Z46.1 Encounter for fitting and adjustment of hearing aid Active Diagnosis [facility] Diagnosis: ICD-10-CM N18.6 End stage renal disease Active Diagnosis [facility] Diagnosis: ICD-10-CM R26.9 Unspecified abnormalities of gait and mobility Active Diagnosis [facility] Diagnosis: ICD-10-CM J44.9 Chronic obstructive pulmonary disease, unspecified Active Diagnosis [facility] Diagnosis: ICD-10-CM Z65.8 Oth problems related to psychosocial circumstances Active Diagnosis [facility] Medications Combined list of outpatient medications [...] RELIEF). RESPIR ATORY (INHAL ATION) ACTIVE 11/09/2024 [id number] 5 CASANDRA DALTON 2023 2 [facility] ALBUTEROL 90MCG/ACTUA T (CFC-F) INHL,ORAL,8 .5GM DOSE COUNTER INHALE 2 PUFFS BY INHALATI ON EVERY 4 HOURS NEEDED FOR BREATHIN G SHAKE WELL (FOR IMMEDIAT E RELIEF). RESPIR ATORY (INHAL ATION) DISCONT INUED 08/21/2023 [id number] 4 CASANDRA DALTON 2022 2 [facility] AZELASTINE HCL 137MCG/SPRA Y INHL,NASAL, 30ML SPRAY 1 PUFF IN EACH NOSTRIL TWICE A DAY FOR NASAL SYMPTOMS NASAL ACTIVE 12/31/2024 [id number] 5 RODRÍGUEZ MATHEWS 2023 2 [facility] CALCIUM CARBONATE TAB,CHEWABL E CHEW ONE TABLET BY MOUTH FOUR TIMES A DAY NEEDED ORAL ACTIVE RODRÍGUEZ MATHEWS 2022 [facility] CLOPIDOGREL BISULFATE 75MG TAB TAKE ONE TABLET BY MOUTH EVERY DAY TO PREVENT BLOOD CLOTS LENGTH OF TREATMEN T: MARIANA TE, CO-MANAG ED CARE PRESCRIP TION ORAL ACTIVE 06/16/2025 [id number] 5 RODRÍGUEZ MATHEWS 2024 90 [facility] COENZYME Q10 CAP/TAB TAKE ONE TABLET BY MOUTH EVERY DAY ORAL ACTIVE CASANDRA DALTON 2012 [facility] CYCLOSPORIN E 0.05% (PF) EMULSION,OP H,0.4ML INSTILL 1 DROP BOTH EYES TWICE A DAY OPHTHA LMIC ACTIVE 08/10/2024 [id number] FB-PURFEE RST,MATHEW OD 2023 60 [place] [facility] DEXTROMETHO RPHAN HBR 10MG/GUAIFE NESIN 100MG/5ML (AF & SF) LIQUID TAKE 1 TEASPOON FUL BY MOUTH EVERY 4 HOURS NEEDED FOR COUGH AND CONGESTI ON ORAL ACTIVE 07/01/2025 [id number] 5 RODRÍGUEZ MATHEWS 2024 120 [facility] DEXTROMETHO RPHAN HBR 10MG/GUAIFE NESIN 100MG/5ML (AF & SF) LIQUID TAKE 1 TEASPOON FUL BY MOUTH EVERY 4 HOURS NEEDED FOR COUGH AND CONGESTI ON ORAL DISCONT INUED 03/09/2024 [id number] 4 RODRÍGUEZ MATHEWS 2022 120 [facility] DIALYVITE TAB TAKE 1 TABLET BY MOUTH EVERY DAY ORAL DISCONT INUED 09/10/2023 [id number] 4 RODRÍGUEZ MATHEWS 2022 100 [facility] DIALYVITE TAB TAKE 1 TABLET BY MOUTH EVERY DAY ORAL 07/02/2024 [id number] 5 RODRÍGUEZ MATHEWS 2023 100 [facility] FLUTICASONE 250MCG/SALM ETEROL 50MCG INHL,ORAL,D ISKUS,60 INHALE 1 PUFF BY INHALATI ON TWICE A DAY TO PREVENT TROUBLE BREATHIN G -RINSE MOUTH AFTER USING RESPIR ATORY (INHAL ATION) ACTIVE 12/28/2024 [id number] 4 RODRÍGUEZ MATHEWS 2023 3 [facility] FLUTICASONE 250MCG/SALM ETEROL 50MCG INHL,ORAL,D ISKUS,60 INHALE 1 PUFF BY INHALATI ON TWICE A DAY TO PREVENT TROUBLE BREATHIN G -RINSE MOUTH AFTER USING RESPIR ATORY (INHAL ATION) DISCONT INUED 09/23/2023 [id number] 4 RODRÍGUEZ MATHEWS 2022 3 [facility] INSULIN,ASP ART,HUMAN (EQV-NOVOLO G) 100 UNIT/ML,FLE XPEN,3ML INJECT 5 UNITS UNDER THE SKIN BEFORE MEALS FOR DIABETES SUBCUT ANEOUS ACTIVE 10/26/2024 [id number] 4 RODRÍGUEZ MATHEWS 2023 5 [place] [facility] INSULIN,ASP ART,HUMAN (EQV-NOVOLO G) 100 UNIT/ML,FLE XPEN,3ML INJECT 5 UNITS UNDER THE SKIN TWICE A DAY TO DECREASE BLOOD SUGAR-- INJECT IMMEDIAT LINDA BEFORE MEAL (PEN FILL APPROVED ) REPLACES REGULAR INSULIN PEN SUBCUT ANEOUS 05/13/2023 [id number] 3 RODRÍGUEZ MATHEWS 2021 5 [facility] INSULIN,GLA RGINE,HUMAN 100 UNIT/ML INJ,SOLOSTA R,3ML INJECT 18 UNITS UNDER THE SKIN EVERY DAY FOR DIABETES DISCAR D PEN 28 DAYS AFTER INITIAL USE SUBCUT ANEOUS DISCONT INUED (EDIT) 06/06/2024 [id number] 4 RODRÍGUEZ MATHEWS 2023 5 [facility] INSULIN,GLA RGINE-YFGN 100UNIT/ML INJ PEN,3ML INJECT 18 UNITS UNDER THE SKIN EVERY DAY FOR DIABETES DISCAR D PEN 28 DAYS AFTER INITIAL USE SUBCUT ANEOUS 06/09/2024 [id number] 4 RODRÍGUEZ MATHEWS 2023 5 [facility] LEVOTHYROXI NE NA 200MCG TAB (SYNTHROID) TAKE ONE TABLET BY MOUTH EVERY DAY FOR THYROID ORAL ACTIVE 12/28/2024 [id number] 5 RODRÍGUEZ MATHEWS 2023 90 [place] [facility] LEVOTHYROXI NE NA 200MCG TAB (SYNTHROID) TAKE ONE TABLET BY MOUTH EVERY DAY FOR THYROID ORAL DISCONT INUED 01/13/2024 [id number] 4 RODRÍGUEZ MATHEWS 2022 90 [place] [facility] LORATADINE 10MG TAB TAKE ONE TABLET BY MOUTH EVERY DAY NEEDED ORAL ACTIVE RODRÍGUEZ MATHEWS 2022 [place] [facility] MARINE LIPID (FISH OIL) CAP,ORAL TAKE 1200MG BY MOUTH EVERY DAY ORAL ACTIVE CASANDRA DALTON 2010 [facility] MIDODRINE HCL 10MG TAB TAKE ONE TABLET BY MOUTH DIRECTED - TAKE 1 TABLET BEFORE DIALYSIS AND 1 TABLET AFTER DIALYSIS , NEEDED FOR HYPOTENS ION OTHER DAYS ORAL ACTIVE 06/21/2025 [id number] 5 Stefany TRAN 2024 90 [facility] MONTELUKAST NA 10MG TAB TAKE ONE TABLET BY MOUTH EVERY DAY ORAL ACTIVE 06/21/2025 [id number] 5 CASANDRA DALTON 2024 90 [place] [facility] MONTELUKAST NA 10MG TAB TAKE ONE TABLET BY MOUTH EVERY DAY ORAL DISCONT INUED 05/08/2024 [id number] 4 CASANDRA DALTON 2022 90 [facility] NITROGLYCER IN 0.4MG TAB,SUBLING UAL DISSOLVE ONE TABLET UNDER THE TONGUE PRN SUBLIN GUAL ACTIVE CASANDRA DALTON 2010 [facility] PANTOPRAZOL E NA 40MG TAB,EC TAKE ONE TABLET BY MOUTH EVERY DAY ONE-HALF HOUR BEFORE EATING. ORAL ACTIVE 06/21/2025 [id number] 5 CASANDRA DALTON 2024 90 [facility] PANTOPRAZOL E NA 40MG TAB,EC TAKE ONE TABLET BY MOUTH EVERY DAY ONE-HALF HOUR BEFORE EATING. ORAL DISCONT INUED 07/02/2024 [id number] 4 CASANDRA DALTON 2023 90 [facility] PRAVASTATIN NA 40MG TAB TAKE ONE TABLET BY MOUTH AT BEDTIME FOR CHOLESTE ROL ORAL DISCONT INUED 06/05/2024 [id number] 3 CASANDRA DALTON 2022 90 [facility] PRAVASTATIN NA 40MG TAB TAKE ONE TABLET BY MOUTH AT BEDTIME FOR CHOLESTE ROL ORAL 06/06/2024 [id number] 4 RODRÍGUEZ MATHEWS 2023 90 [facility] SULFAMETHOX AZOLE 800MG/TRIME THOPRIM 160MG TAB TAKE 1 TABLET BY MOUTH TWICE A DAY ORAL 01/30/2024 [id number] 4 RODRÍGUEZ MATHEWS 2023 20 [facility] [facility] TIOTROPIUM 2.5MCG/ACTU AT INHL,ORAL,6 0D,4GM INHALE TWO PUFFS BY INHALATI ON EVERY DAY FOR ASTHMA RESPIR ATORY (INHAL ATION) DISCONT INUED 04/01/2025 [id number] 4 [place], [place] NA 2023 1 [facility] TIOTROPIUM 2.5MCG/ACTU AT INHL,ORAL,6 0D,4GM INHALE TWO PUFFS BY INHALATI ON EVERY DAY FOR ASTHMA RESPIR ATORY (INHAL ATION) DISCONT INUED 08/26/2024 [id number] 4 [place] NA 2023 1 [facility] [facility] TIOTROPIUM 2.5MCG/ACTU AT INHL,ORAL,6 0D,4GM INHALE TWO PUFFS BY INHALATI ON EVERY DAY FOR ASTHMA RESPIR ATORY (INHAL ATION) DISCONT INUED 10/29/2023 [id number] 4 [place], [place] NA 2022 1 [facility] [place] [facility] TIOTROPIUM 2.5MCG/ACTU AT INHL,ORAL,6 0D,4GM INHALE TWO PUFFS BY INHALATI ON EVERY DAY FOR ASTHMA RESPIR ATORY (INHAL ATION) 06/29/2024 [id number] 5 RODRÍGUEZ MATHEWS 2024 3 [facility] VANICREAM APPLY THIN LAYER TOPICALL Y EVERY DAY FOR DRY SKIN TOPICA L ACTIVE 12/28/2024 [id number] 5 RODRÍGUEZ MATHEWS 2023 1362 [facility] VANICREAM APPLY THIN LAYER TOPICALL Y EVERY DAY FOR DRY SKIN TOPICA L DISCONT INUED 12/19/2023 [id number] 4 RODRÍGUEZ MATHEWS 2022 1362 [facility] VITAMIN E 400UNT CAP TAKE 1 CAPSULE BY MOUTH EVERY DAY ORAL ACTIVE ME VELMA DAI 2013 [facility] ZINC SULFATE TAB TAKE 50MG BY MOUTH EVERY DAY ORAL ACTIVE [facility] 2014 [facility] Allergies, Adverse Reactions, Alerts Combined list of allergies from Department of [facility] ([place], [place]) and Veterans 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 It does not include entries that were removed or entered in error. Substance Category Reaction Severity Reaction type Status Date Reported Comments Source ATORVASTATIN Propensity to adverse reactions to drug (finding) Pain in lower limb active 9 [facility] DOXYCYCLINE Propensity to adverse reactions to drug (finding) PRURITIS, Eruption active 4 [facility] HYDROCODONE Propensity to adverse reactions to drug (finding) Disorientat ed, Drowsy, Hallucinati ons active 3 [facility] LIPITOR Propensity to adverse reactions to drug (finding) Cramp active 0 [facility] LISINOPRIL Propensity to adverse reactions to drug (finding) Abdominal discomfort active 7 [facility] METOCLOPRAMI DE Propensity to adverse reactions to drug (finding) Gynecomasti a active 0 [facility] OMEPRAZOLE Propensity to adverse reactions to drug (finding) Diarrhea active 0 [facility] SIMVASTATIN Propensity to adverse reactions to drug (finding) MUSLCE CRAMPS active 4 [facility] Immunizations Combined list of available immunizations from the Department of [facility] ([place], [place]) and [facility] 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 Immunization Series Date Given Administered By Site Reaction Lot Number CVX Code Drug Sew On Operator Status Comments Source INFLUENZA, RECOMBINANT, QUADRIVALENT, PF 2022 185 complet ed [facility] TDAP 2022 [facility] RIGHT DELTO ID [id number] 115 complet ed [facility] INFLUENZA, UNSPECIFIED FORMULATION 2021 88 complet ed [facility] COVID-19 (PFIZER), MRNA, LNP-S, PF, 30 MCG/0.3 ML DOSE, ALY-SUCROSE (AGES 12+ YEARS) 2021 217 complet ed [facility] COVID-19 (PFIZER), MRNA, LNP-S, PF, 30 MCG/0.3 ML DOSE 2020 208 complet ed [facility] INFLUENZA, UNSPECIFIED FORMULATION 2020 88 complet ed [facility] ZOSTER RECOMBINANT 2 2020 187 complet ed [facility] COVID-19 (PFIZER), MRNA, LNP-S, PF, 30 MCG/0.3 ML DOSE 2020 208 complet ed [facility] COVID-19 (PFIZER), MRNA, LNP-S, PF, 30 MCG/0.3 ML DOSE 2020 208 complet ed [facility] ZOSTER RECOMBINANT 1 2019 187 complet ed [facility] INFLUENZA, SEASONAL, INJECTABLE, PRESERVATIVE FREE 2019 140 complet ed [facility] INFLUENZA, UNSPECIFIED FORMULATION 2018 88 complet ed [facility] INFLUENZA, SEASONAL, INJECTABLE, PRESERVATIVE FREE 2017 140 complet ed [facility] INFLUENZA, HIGH DOSE SEASONAL 2016 135 complet ed [facility] INFLUENZA, HIGH-DOSE, TRIVALENT, PF 2015 135 complet ed [facility] INFLUENZA, HIGH DOSE SEASONAL 2014 135 complet ed [facility] PNEUMOCOCCAL CONJUGATE PCV 13 2014 133 complet ed [employer] [id number] 08/22 [facility] INFLUENZA, UNSPECIFIED FORMULATION 2013 88 complet ed [facility] INFLUENZA, UNSPECIFIED FORMULATION 2013 88 complet ed [facility] ZOSTER LIVE 2013 121 complet ed [facility] INFLUENZA, UNSPECIFIED FORMULATION 2012 88 complet ed [facility] PNEUMOCOCCAL, UNSPECIFIED FORMULATION 2012 109 complet ed [employer], [id number], [facility] TDAP 2012 115 complet ed [facility] TDAP 2012 115 complet ed [facility] ZOSTER LIVE 2012 121 complet ed [employer] Lot#[id number] 14 [facility] TDAP 2012 115 complet ed [facility] INFLUENZA, UNSPECIFIED FORMULATION 2011 88 complet ed [facility] INFLUENZA, UNSPECIFIED FORMULATION 2010 88 complet ed [facility] INFLUENZA, UNSPECIFIED FORMULATION 2009 88 complet ed [facility] INFLUENZA, UNSPECIFIED FORMULATION 2008 88 complet ed [facility] TD(ADULT) UNSPECIFIED FORMULATION 2007 139 complet ed [facility] INFLUENZA, SPLIT VIRUS, TRIVALENT, PRESERVATIVE 2007 141 complet ed [facility] TD (ADULT), 5 LF TETANUS TOXOID, PRESERVATIVE FREE, ADSORBED 2007 113 complet ed [facility] INFLUENZA (HISTORICAL) 2006 88 complet ed [facility] INFLUENZA (HISTORICAL) 2005 88 complet ed [facility] INFLUENZA, UNSPECIFIED FORMULATION 2004 88 complet ed [facility] INFLUENZA, UNSPECIFIED FORMULATION 2003 88 complet ed [facility] PNEUMOCOCCAL, UNSPECIFIED FORMULATION 2003 109 complet ed [facility] TD(ADULT) UNSPECIFIED FORMULATION 2003 139 complet ed due next year [facility] INFLUENZA, SPLIT VIRUS, TRIVALENT, PRESERVATIVE 2002 141 complet ed [facility] INFLUENZA (HISTORICAL) 2002 88 complet ed pt states he had a Influenza vaccinati on this yr [facility] TD(ADULT) UNSPECIFIED FORMULATION 1994 139 complet ed [facility] Vital Signs Combined list of inpatient and outpatient Vital Signs from Department of Defense and Veterans Affairs, ranging from 12 months to all on record, depending upon the facility. Vital Sign Value Date Comments Source SYSTOLIC BLOOD PRESSURE 103 12/31/2023 13:26:57 [facility] DIASTOLIC BLOOD PRESSURE 55 12/31/2023 13:26:57 [facility] PULSE OXIMETRY 95 12/31/2023 13:26:57 [facility] WEIGHT 200.2 12/31/2023 13:26:57 [facility] BMI 27kg/m2 12/31/2023 13:26:57 [facility] PAIN 6 12/31/2023 13:26:57 [facility] TEMPERATURE 98.4 12/31/2023 13:26:57 [place] [facility] PULSE 73 12/31/2023 13:26:57 [facility] [facility] RESPIRATION 18 12/31/2023 13:26:57 [place] [facility] Encounters Combined list of: 1) Encounters from Department of [facility] Affairs facilities going back up to thelast 18 months. 2) Encounters from the Department of [facility] ([place], [place]) facilities going back up to 280 months. Location Location Details Encounter Type Encounter Number Reason For Visit Attending Provider ADM Date DC Date Status Disposition Source [place] [facility] Outpatient Encounter [id number] 01[facility] [place] [facility] Outpatient Encounter [id number] 02/05 [facility] [place] [facility] Outpatient Encounter [id number] 02/11 [facility] HC PRO PHONE CALL 21-30 MIN [id number] Diagnos is: ICD-10- CM Z65.8 Oth problem s related to psychos ocial circums tances< br/> VESNA GRAY 02/11 [facility] [place] [facility] Outpatient Encounter [id number] DEBRA PINTO 02/18 [facility] SELF CARE MNGMENT TRAINING [id number] Diagnos is: ICD-10- CM J44.9 Chronic obstruc tive pulmona ry disease , unspeci fied
MAGGIE EVANS A 02/19 [facility] [place] [facility] Outpatient Encounter [id number] 03/03 [facility] [place] [facility] Outpatient Encounter [id number] Diagnos is: ICD-10- CM R26.9 Unspeci fied abnorma lities of gait and mobilit y
NANCY HOWARD 03/04 [facility] [place] [facility] Outpatient Encounter [id number] 03/06 [place] [facility] [place] [facility] Outpatient Encounter [id number] 03/23 [place] [facility] [place] [facility] Outpatient Encounter [id number] 03/26 [place] [facility] [place] [facility] TARGETED CASE MANAGEMENT [id number] Chani PERAZA L 05/04 [place] [facility] HC PRO PHONE CALL 5-10 MIN [id number] Diagnos is: ICD-10- CM N18.6 End stage renal disease
FADUMO HERNANDEZ 05/05 [facility] TARGETED CASE MANAGEMENT [id number] Chani PERAZA L 05/05 [facility] TARGETED CASE MANAGEMENT [id number] Chani PERAZA L 05/13 [facility] CASE MANAGEMENT [id number] JENNIFER THAPA CCA 05/13 [facility] Outpatient Encounter [id number] 05/13 [facility] Outpatient Encounter [id number] GUADALUPE ACOSTA 05/14 [facility] CASE MANAGEMENT [id number] Chani PERAZA L 05/19 [facility] Outpatient Encounter [id number] 05/19 [facility] Outpatient Encounter [id number] Chani PERAZA L 05/27 [place] [facility] [facility] Outpatient Encounter [id number] 05/28 [facility] Outpatient Encounter [id number] 05/28 [facility] Outpatient Encounter [id number] ANSELMO ARMSTRONG NANCY A 06/02 [facility] Outpatient Encounter [id number] 06/02 [facility] Outpatient Encounter [id number] DARRELL LOO 06/17 [facility] Outpatient Encounter [id number] 06/18 [facility] Outpatient Encounter [id number] Jared RUVALCABA 06/25 [facility] HEARING AID CHECK BOTH EARS [id number] Diagnos is: ICD-10- CM Z46.1 Encount er for fitting and adjustm ent of hearing aid<br/ > DANELLE MAYFIELD 07/23 [facility] PRO PHONE CALL 5-10 MIN [id number] Diagnos is: ICD-10- CM H04.129 Dry eye syndrom e of unspeci fied lacrima l gland<b r/> FADUMO HERNANDEZ K 08/09 [facility] OFF/OP EST OCTOBER X REQ PHY/QHP [id number] Diagnos is: ICD-10- CM Z01.118 Encntr for exam of ears and hearing w oth abnorma l finding s
DAYANNA CRAWFORD 10/14 [facility] Outpatient Encounter [id number] 10/23 [facility] CONFORMITY EVALUATION [id number] Diagnos is: ICD-10- CM H90.3 Sensori neural hearing loss, bilater al
DAYANNA CRAWFORD 11/16 [facility] [place] [facility] Outpatient Encounter [id number] 12/30 [facility] OFFICE O/P EST HI 40 MIN [id number] Diagnos is: ICD-10- CM M79.646 Pain in unspeci fied finger( s)
BISISaskia RIBEIRO H 12/30 [facility] [place] [facility] Outpatient Encounter [id number] DEBRA PINTO 01/20 [facility] [place] [facility] Outpatient Encounter [id number] 02/10 [facility] [place] [facility] Outpatient Encounter [id number] DEBRA PINTO 02/14 [place] [facility] [place] [facility] Outpatient Encounter [id number] KALYANI COPELAND H 02/23 [facility] SELF CARE MNGMENT TRAINING [id number] Diagnos is: ICD-10- CM R26.89 Other abnorma lities of gait and mobilit y
RASHEL HAYES 04/07 [facility] [place] [facility] SELF CARE MNGMENT TRAINING [id number] Diagnos is: ICD-10- CM R26.89 Other abnorma lities of gait and mobilit y
RASHEL HAYES 04/28 [facility] [place] [facility] SELF CARE MNGMENT TRAINING [id number] Diagnos is: ICD-10- CM R26.89 Other abnorma lities of gait and mobilit y
RASHEL HAYES 05/17 [place] [facility] [place] [facility] Outpatient Encounter [id number] 06/06 [place] [facility] [place] [facility] Outpatient Encounter [id number] 06/14 [place] [facility] [place] [facility] Outpatient Encounter [id number] 06/20 [place] [facility] [place] [facility] Outpatient Encounter [id number] 06/20 [place] [facility] [place] [facility] NQHP OL DIG ASSMT&MGMT 5-10 [id number] Diagnos is: ICD-10- CM I25.10 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 Social History Type Response Date Comment Sourc e Tobacco smoking status NHIS IA-TOBACCO FORMER USER 12/31/2023 [facility] History of tobacco use IA-TOBACCO QUIT 1 5 YRS OR MORE 12/31/2023 [facility] History of tobacco use IA-TOBACCO FORMER USER 12/18/2022 [facility] History of tobacco use IA-TOBACCO FORMER USER 11/05/2021 [facility] History of tobacco use IA-TOBACCO QUIT 1 5 YRS OR MORE 07/28/2019 [facility] History of tobacco use VA-TOBACCO FORMER USER 12/10/2018 [facility] History of tobacco use VA-TOBACCO FORMER USER 02/25/2018 [facility] History of tobacco use FORMER TOBACCO US ER 7Y OR GREATER 04/10/2015 [facility] History of tobacco use FORMER TOBACCO US ER 7Y OR GREATER 04/27/2014 [facility] History of tobacco use FORMER TOBACCO US ER 7Y OR GREATER 06/18/2006 [facility] Plan of Care List of future care activities from Department of Veterans 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 Additional future care activities may be listed in the Assessment and Plan section. Date/Time Care Activity Care Activity Detail Facili ty 07/26/2024 AMBULATORY - REHAB MEDICINE AMBULATORY - REHAB MEDICINE [facility] Advance Directives List of completed, amended, or rescinded Advance Directives on record at Department of Veterans 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 An actual copy of the Directive is not included. Date Advance Directive Provider Source 05/23/2003 ADVANCE DIRECTIVE [facility]
--- OUTSIDE RECORDS SUMMARY | 2024-07-06 13:49 | XMS_ITS | Clinical Summary ---
Author Organization [facility] Facility Address [address] [address] Care Team Providers Care Buckle Strap Puncher Name Role Phone Unavailable Primary Care Provider [...] Encounters Date Type Department Care Team Description 07/04/2024 Treatment [facility] [address] [place] [address] 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, [address]AC[address] SQL DEVELOPER-PSYCHIATRIC THERAPIST 06/29/2024 Orders Only [facility] [address] [place] [phone] Darren Youssef MD 06/22/2024 Orders Only [facility] [address] [place] [phone] Darren Youssef MD 06/20/2024 Orders Only [facility] [address] [place] [phone] Darren Youssef MD 06/20/2024 Treatment [facility] [address] [place] [address] Darren Youssef MD 06/20/2024 TCM in Dialysis Clinic [facility] [address] [place] [address] Darren Youssef MD 06/15/2024 Orders [facility] [address] [place] [phone] Darren Youssef MD 06/10/2024 Orders Only [facility] [address] [place] [phone] Darren Youssef MD 06/09/2024 Telephone [facility] [address] [place] [phone] Nehal Meredith, FRANCIA Hospital Discharge ([place]) 05/18/2024 Orders Only [facility] [address] [place] [phone] Darren Youssef MD 05/11/2024 Orders Only [facility] [address] [place] [address] Darren Youssef MD 05/09/2024 Treatment [facility] [address] [place] [address] 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, ORACLE PL SQL DEVELOPER-PSYCHIATRIC THERAPIST 05/04/2024 Orders Only [facility] [address] [place] [phone] Darren Youssef MD 04/27/2024 Orders Only [facility] [address] [place] [address] Darren Youssef MD 04/22/2024 Treatment [facility] [address] [place] [address] Darren Youssef MD 04/20/2024 Orders Only [facility] [address] [place] [address] Darren Youssef MD 04/13/2024 Orders Only [facility] [address] [place] [address] Darren Youssef MD 04/13/2024 Treatment [facility] [address] [place] [address] 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, ORACLE PL SQL DEVELOPER-PSYCHIATRIC THERAPIST 04/06/2024 Orders Only [facility] [address] [place] [phone] Darren Youssef MD from Last 3 Months [...] Visual Foot Exam 09/08/2019 Diabetes: Hemoglobin A1C 08/29/2024 024, 01/12/2024, 09/24/2020, Additional history exists Influenza Vaccine Completed 03/23/2024, , 03/10/2022, Additional history exists Procedures Procedure Name Priority Date/Time Associated Diagnosis Comments HEMATOLOGY Routine 06/29/2024 HEMATOLOGY Routine 06/22/2024 [facility] RESULTS Routine 06/20/2024 HD KINETICS Routine [...] of11 resultswithin the time period is included. Hemoglobin 8.2(L) 14.0 - 18.0 g/dL [facility] Hemoglobin x 3 24.6(L) 42.0 - 54.0 % [facility] 06/29/2024 06/30/2024 2:1 7 AM PULP HOUSE SUPERVISOR Narrative [facility] - 06/30/2024 Unless otherwise specified, test(s) performed at: [facility], [address] [place] [address], [place] [address] REVIEW ANALYST: Rojas Kirkland M.D., Ph.D For any questions, please call customer service at FREQUENCY:OTHER Resulting Agency Comment Specimen source: Blood us Darren Youssef MD LAB BLOOD ORDERABLES Final Re sult [facility] See order comments or contact performing lab Unknown, [place] * HD KINETICS (06/20/2024) Only the most recent of4 resultswithin the time period is included. % Urea Reduction 71 65 - 80 % [facility] 06/20/2024 06/21/2024 10: 11 AM PULP HOUSE SUPERVISOR Narrative [facility] - 06/21/2024 Unless otherwise specified, test(s) performed at: [facility], [address] [place] [address], [place] [address] REVIEW ANALYST: Rojas Kirkland M.D., Ph.D For any questions, please call customer service at FREQUENCY:OTHER Resulting Agency Comment Specimen source: Plasma Darren Youssef MD LAB BLOOD ORDERABLES Final Re sult Performing Organization Address [facility] de Phone Number [employer] See order comments or contact performing lab Unknown, [place] * (ABNORMAL) POST CHEMISTRY (06/20/2024) Only the most recent of4 resultswithin the time period is included. BUN Post Dialysis 22(H) 6 - 19 mg/dL [facility] 06/20/2024 06/21/2024 10: 11 AM PULP HOUSE SUPERVISOR Narrative [facility] - 06/21/2024 Unless otherwise specified, test(s) performed at: [facility], [address] [place] [address], [place] [address] REVIEW ANALYST: Rojas Kirkland M.D., Ph.D For any questions, please call customer service at FREQUENCY:OTHER Resulting Agency Comment Specimen source: Plasma Darren Youssef MD LAB BLOOD ORDERABLES Final Re sult Performing Organization Address [facility]/ZIP Co de Phone Number [employer] See order comments or contact performing lab Unknown, [place] * (ABNORMAL) [facility] (06/20/2024) Only the most recent of5 resultswithin the time period is included. BUN 76(H) 6 - 19 mg/dL [facility] 06/20/2024 06/21/2024 1:4 4 PM PULP HOUSE SUPERVISOR Narrative [facility] - 06/21/2024 Unless otherwise specified, test(s) performed at: [facility], [address] [place] [address], [place] [address] REVIEW ANALYST: Rojas Kirkland M.D., Ph.D For any questions, please call customer service at FREQUENCY:OTHER Resulting Agency Comment Specimen source: Serum Darren Youssef MD LAB BLOOD ORDERABLES Final Re sult Performing Organization Address City/[facility]/ZIP Co de Phone Number [facility] See order comments or contact performing lab Unknown, [place] * [facility] Results (06/20/2024) Only the most recent of4 resultswithin the time period is included. Pathologist [facility] spKt/V Got 1.43 [facility] PCR 75.47 [facility] spKt/V (Daugirdas II) 1.43 [facility] eKt/V ([place]) 1.23 [facility] nPCR_HD 1.04 [facility] eKt/V Gotch 1.21 [facility] e [place] eNPCR 0.96 [facility] eKdrt/V 1.21 [facility] WSTDKT/V 2.4 [facility] 06/20/2024 06/20/2024 [facility] Ordering Provider LAB BLOOD ORDERABLES Final Result [facility] Contact Performing lab Unknown, [place] * IMMUNO CHEMISTRY (06/15/2024) Only the most recent of4 resultswithin the time period is included. Pathologist [facility] Hep B Surface Ag Negative Negative [facility] 06/15/2024 06/16/2024 10: 07 AM PULP HOUSE SUPERVISOR Narrative [facility] - 06/16/2024 Unless otherwise specified, test(s) performed at: [facility], [address] [place] [address], [place] [address] REVIEW ANALYST: Rojas Kirkland M.D., Ph.D For any questions, please call customer service at FREQUENCY:MONTHLY Resulting Agency Comment Specimen source: Plasma Darren Youssef MD LAB BLOOD ORDERABLES Final Re sult Performing Organization Address [facility] Co de Phone Number [employer] [facility] See order comments or contact performing lab Unknown, [place] * SPECIAL CHEMISTRY (04/13/2024) Pathologist [facility] Vitamin D, 25-OH, Total 56.9 30.0 - 100.0 ng/mL [facility] Comment: Please Note: Effective June 16, 2021, the methodology for this test has changed to the SIEMENS ATELLICA method 04/13/2024 04/14/2024 5:5 9 PM PULP HOUSE SUPERVISOR Narrative Resulting Agency Comment Specimen source: Serum Darren Youssef MD LAB BLOOD BANK TEST ORDERABLE S Final Result Performing Organization Address [facility] de Phone Number [employer] [facility] See order comments or contact performing lab Unknown, [place] * TRACE ELEMENTS (04/13/2024) [facility] Aluminum 8 0 - 10 mcg/L [facility] Comment: This test was developed and its performance characteristics determined by [facility]. It has not been cleared or approved by the FDA. The laboratory is regulated under CLIA as qualified to perform high complexity testing. This test is used for clinical purposes. It should not be regarded as investigational or for research. 04/13/2024 04/14/2024 8:1 8 AM PULP HOUSE SUPERVISOR Narrative [facility] - 04/15/2024 Unless otherwise specified, test(s) performed at: [facility], [address] [place] [address], [place] [address] REVIEW ANALYST: Rojas Kirkland M.D., Ph.D For any questions, please call customer service at FREQUENCY:MONTHLY Resulting Agency Comment Specimen source: Serum Darren Youssef MD LAB BLOOD ORDERABLES Final Re sult Performing Organization Address [facility] de Phone Number [employer] [facility] See order comments or contact performing lab Unknown, [place] * (ABNORMAL) Hemoglobin A1c (09/24/2020 11:00 AM CDT) [facility] Hemoglobin A1C 5.8(H) 0.0 - 5.6 %A1c APS DAVITA [facility] 09/24/2020 11:0 0 AM CDT 09/25/2020 12:06 PM CDT us [employer] kSy MD LAB BLOOD ORDERABLES Edited Resu lt - Final ADIN RAYO [facility] from Last 3 Months or Most Recently Relevant to Health Maintenance Insurance [facility] MEDIC[facility]
--- OUTSIDE RECORDS SUMMARY | 2024-07-06 14:33 | XMS_ITS | CONTINUITY OF CARE DOCUMENT ---
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 Genoveva Stephens , [address] [facility] [address] [facility] [address] [facility] VITAL SIGNS Date Observation Value Provider Organization blood pressure, diastolic 64 mm[Hg] Mili Bredemus , [address] [facility] blood pressure, systolic 142 mm[Hg] Mili Bredemus , [address] [facility] [place] blood pressure, site #1 Upper arm Mili Bredemus , [address] [facility] blood pressure, diastolic, right arm 64 mm[Hg] Mili Bredemus , [address] [facility] blood pressure, systolic, right arm 142 mm[Hg] Mili Bredemus , [address] [facility] respiratory rate E&M 22 /min Mili Bredemus , [address] [facility] pulse rate 73 /min Milinahun Sanchezemu s , [address] [facility] [place] temperature E&M 98.3 [degF] Mili brink , [address] [facility] Body Mass Index (Ratio) 31.68 kg/m2 Mili Pizano , [address] [facility] weight E&M 220 [lb_av] Mili Ibanez s , [address] [facility] height E&M 70 [in_i] Mili Ibanez s , [address] [facility] blood pressure, diastolic 72 mm[Hg] Angelica Oswald , [address] [facility] [address] [facility] [place] blood pressure, systolic 160 mm[Hg] Angelica Oswald , [address] [facility] [address] [facility] [place] blood pressure, site #1 Upper arm Angelica Oswald , [address] [facility] [address] [facility] blood pressure, diastolic, right arm 72 mm[Hg] Angelica ChenSan Pablo , [address] [facility] [facility] blood pressure, systolic, right arm 160 mm[Hg] Angelica Beckerather , [address] [facility] [address] [facility] respiratory rate E&M 16 /min Angelica mijares , [address] [facility] [address] [facility] pulse rate 83 /min Angelica Denson her , [address] [facility] [address] [facility] [address] [facility] temperature E&M 98.4 [degF] Angelica silva , [address] [facility] [address] [facility] Body Mass Index (Ratio) 32.26 kg/m2 Angelica Oswald , [address] [facility] [address] [facility] weight E&M 224 [lb_av] Angelica boggs , [address] [place] [address] [address] [facility] height E&M 70 [in_i] Angelica Denson her , [address] [place] [address] [address] [facility] [place] blood pressure, diastolic 75 mm[Hg] Radha De Leon RN RN, [address] [place] [address] [address] [facility] [place] blood pressure, systolic 181 mm[Hg] Radha De Leon RN RN, [address] [place] [address] [address] [facility] [place] respiratory rate E&M 14 /min Radha solano RN RN, [address] [place] [address] [address] [facility] [place] pulse rate 58 /min Radha De Leon RN R N, [address] [place] [address] [address] [facility] [place] blood pressure, site #1 Upper arm Radha De Leon RN RN, [address] [place] [address] [address] [facility] [place] blood pressure, diastolic, right arm 75 mm[Hg] Radha De Leon RN RN, [address] [place] [address] [address] [facility] [place] blood pressure, systolic, right arm 181 mm[Hg] Radha De Leon RN RN, [address] [place] [address] [address] [facility] [place] temperature E&M 98.0 [degF] Radha De Leon R N RN, [address] [place] [address] [address] [facility] [place] Body Mass Index (Ratio) 31.97 kg/m2 Radha De Leon RN RN, [address] [place] [address] [address] [facility] [place] weight E&M 222 [lb_av] Radha De Leon RN R N, [address] [place] [address] [address] [facility] [place] height E&M 70 [in_i] Radha De Leon RN R N, [address] [place] [address] [address] [facility] [place] ALLERGIES Allergy Name Onset Date Reaction Criticality Status Provider Or ganization PRILOSEC OTC diarrhea High Criticality active Genoveva Stephens , [address] [place] [address] [address] [place] [address] [facility] REGLAN gynecomastia High Criticality active Genoveva Stephens [address] [place] [address] [facility] LISINOPRIL GI upset High Criticality active [facility] , [address] [facility] [address] [place] [address] [facility] LIPITOR High Criticality active Ra [facility] , [address] [facility] [address] [place] [address] [facility] RESULTS Date Observation Value Provider Organization Refer ence Range Interpretation Location blood glucose, finger stick 183 Mili Pizano , [address] [facility] [place] HISTORY OF MEDICATION USE Medication Instructions Status Dates Provider Indications Com ments Organization Protonix 40 mg tablet,delayed release (DR/EC) active Mili Pizano , [address] GALZIN 50 MG ORAL CAPSULE active Genoveva[address] [place] [address] [facility] CVS VITAMIN E 400 UNIT ORAL CAPSULE 1 daily active [address] [place] [address] [facility] VITAMIN D (ERGOCALCIFERO L) [address] UNIT ORAL CAPSULE 1 cap daily active [address] [place] [address] [facility] TYLENOL 8 HOUR 650 MG ORAL TABLET EXTENDED RELEASE PRN active Genoveva[address] [place] [address] [facility] SYMBICORT 160-4.5 MCG/ACT INHALATION AEROSOL 2 puffs daily active [address] [place] [address] [facility] SPIRIVA HANDIHALER 18 MCG INHALATION CAPSULE 1 daily active [address] [place] [address] [facility] SINGULAIR 10 MG ORAL TABLET 1 daily active [address] [place] [address] [facility] CVS SENNA 8.6 MG ORAL TABLET 2 tabs in AM 2 tabs in PM daily active [address] [place] [address] [facility] PRAVACHOL 80 MG ORAL TABLET 1 daily active [address] [place] [address] [facility] NOVOLOG FLEXPEN 100 UNIT/ML SUBCUTANEOUS SOLUTION PEN-INJECTOR 3 times daily active [address] [place] [address] [facility] NITROSTAT 0.4 MG SUBLINGUAL TABLET SUBLINGUAL active [address] [place] [address] [facility] MEGARED OMEGA-3 KRILL OIL 500 MG ORAL CAPSULE 1 daily active [address] [place] [address] [facility] ALLERGY RELIEF 10 MG ORAL TABLET 1 daily active [address] [place] [address] [facility] LEVO-T 175 MCG ORAL TABLET 1 at night active [address] [place] [address] [facility]B LANTUS 100 UNIT/ML SUBCUTANEOUS SOLUTION active [address] [place] [address] [facility] GAVISCON TABLET CHEWABLE PRN active [address] [place] [address] [facility] FLOVENT HFA 110 MCG/ACT INHALATION INHALER active [address] [place] [address] [facility] FLUNISOLIDE 25 MCG/ACT (0.025%) NASAL SOLUTION PRN active [address] [place] [address] [facility] CO Q 10 100 MG ORAL CAPSULE 1 daily active [address] [place] [address] [facility]B DIALYVITE ORAL TABLET active [address] [place] [address] [facility] ASPIRIN ADULT LOW DOSE 81 MG ORAL TABLET DELAYED RELEASE 1 daily active [address] [facility] [address] [facility] ALBUTEROL SULFATE HFA 108 (90 BASE) MCG/ACT INHALATION AEROSOL SOLUTION 1-2 puffs 4 times daily active Genoveva Stephens , [address] [place] [address] [address] [facility] [address] [facility] SOCIAL HISTORY Date Observation Value Provider Organization 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, [address] [place] [address] [address] [facility] social history reviewed E&M reviewed - no changes required Mili Pizano , [address] [place] [address] Drive [address] [facility] 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 Yayo Hooker MD, MD, [address] [place] [address] [address] [facility] social history reviewed E&M reviewed - no changes required Angelica Oswald , [address] [place] [address] [address] [facility] [id number] [place] [address] [facility] 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 Yayo Hooker MD, MD, [address] [place] [address] Drive [address] [facility] social history reviewed E&M reviewed - no changes required Radha De Leon RN RN, [address] [place] [address] [address] [facility] [place] INSURANCE PROVIDERS Payer name Policy type / Coverage type [employer] party ID MEDICARE [id number] COMMERCIAL INSURANCE [id number] 5 HISTORY OF PROCEDURES Procedure Date Procedure Name Provider Procedure Notes Status Organization INJECTION FENTANYL CITRATE 100MCG Yayo Hooker MD, MD, [address] [facility] [address] completed [facility] INFUS NORMAL SALINE SOLUTION 250 CC Yayo Hooker MD, MD, [address] [facility] [address] completed [facility] INJECTION MIDAZOLAM HCL PER 1 MG Yayo Hooker MD, MD, [address] [facility] [address] completed [facility] Wire Yayo Hooker MD, MD, [address] [facility] [address] completed [facility] Balloon Yayo Hooker MD, MD, [address] [facility] [address] completed [facility] Sheath Yayo Hooker MD, MD, [address] [facility] [address] completed [facility] Omnipaque 300 10ml (Medicare [id number]) Yayo Hooker MD, MD, [address] [facility] [address] completed [facility] Angioplasty within including RS&I Yayo Hooker MD, MD, [address] [place] [address] completed [facility] Fistulagram, Dialysis Yayo Hooker MD, MD, [address] [facility] [address] completed [facility] Antibiotic-No Order Yayo Hooker MD, MD, [address] [facility] [address] completed [facility] Quailty Measures all negative Yayo Hooker MD, MD, [address] [facility] [address] completed [facility] SNOMED-CT:HISTORICAL PNEUMOCOCCAL VACCINATION Yayo Hooker MD, MD, [address] [facility] [address] completed [facility] SNOMED-CT:PATIENT ENCOUNTER Yayo Hooker MD, MD, [address] [facility] [address] completed [facility] SNOMED-CT: [id number] Current Medications Documented Yayo Hooker MD, MD, [address] [facility] [address] completed [facility] INFUS NORMAL SALINE SOLUTION 250 CC Yayo Hooker MD, MD, [address] [facility] [address] completed [facility] INJECTION MIDAZOLAM HCL PER 1 MG Yayo Hooker MD, MD, [address] [facility] [address] completed [facility] Wire Yayo Hooker MD, MD, [address] [facility] [address] completed [facility] Balloon Yayo Hooker MD, MD, [address] [facility] [address] completed [facility] Sheath Yayo Hooker MD, MD, [address] [facility] [address] completed [facility] Omnipaque-Visipaque Yayo Hooker MD, MD, [address] [facility] [address] 20 ml completed [facility] Angioplasty within including RS&I Yayo Hooker MD, MD, [address] [facility] [address] completed [facility] Fistulagram, Dialysis Yayo Hooker MD, MD, [address] [place] [address] completed [facility] Antibiotic-No Order Yayo Hooker MD, MD, [address] [facility] [address] completed [facility] Quailty Measures all negative Yayo Hooker MD, MD, [address] [facility] [address] completed [facility] SNOMED-CT:HISTORICAL PNEUMOCOCCAL VACCINATION Yayo Hooker MD, MD, [address] [facility] [address] completed [facility] SNOMED-CT:PATIENT ENCOUNTER Yayo Hooker MD, MD, [address] [facility] [address] completed [facility] SNOMED-CT: [id number] Current Medications Documented Yayo Hooker MD, MD, [address] [facility] [address] completed [facility] INFUS NORMAL SALINE SOLUTION 250 CC Yayo Hooker MD, MD, [address] [facility] [address] completed [facility] INJECTION MIDAZOLAM HCL PER 1 MG Yayo Hooker MD, MD, [address] [facility] [address] completed [facility] INJECTION FENTANYL CITRATE 100MCG Yayo Hooker MD, MD, [address] [facility] [address] completed [facility] Wire Yayo Hooker MD, MD, [address] [facility] [address] completed [facility] Balloon Yayo Hooker MD, MD, [address] [facility] [address] completed [facility] Sheath Yayo Hooker MD, MD, [address] [place] [address] completed [facility] Omnipaque-Visipaque Yayo Hooker MD, MD, [address] [facility] [address] 20 ml completed [facility] Angioplasty within including RS&I Yayo Hooker MD, MD, [address] [facility] [address] completed [facility] Fistulagram, Dialysis Yayo Hooker MD, MD, [address] [place] [address] completed [facility] Antibiotic-No Order Yayo Hooker MD, MD, [address] [facility] [address] completed [facility] Quailty Measures all negative Yayo Hooker MD, MD, [address] [facility] [address] completed [facility] SNOMED-CT:HISTORICAL PNEUMOCOCCAL VACCINATION Yaoy Hooker MD, MD, [address] [place] [address] completed [facility] SNOMED-CT:PATIENT ENCOUNTER Yayo Hooker MD, MD, [address] [facility] [address] completed [facility] [place]
--- OUTSIDE RECORDS SUMMARY | 2024-07-06 14:34 | XMS_ITS | Data Portability ---
Author Organization [facility], [facility] Address [address] [place] [address] Care Team Providers Care Apprenticeship Representative Name Role Phone DANO SANCHEZ Primary Care Provider [phone] Assessment Encounter Date Assessment Date Assessment LastModified by Organization Details LastModified Time 11/15/2020 11/15/2020 Patient here for TOV and failed TOV and declined to have another cathether put in. Patient reports going for dialysis sessions. [email or web address] Not available 11/15/2020 13:42:00 Plan of Treatment Reminders Order Date Submit Date Provider Last Modified By Organization Details Last Modified Time Details Appointments None recorded. Lab culture, urine [address] [facility], [address], [place], [address], 10:10:11 Referral None recorded. Procedures None recorded. Surgeries None recorded. Imaging None recorded. Medication Orders Levaquin 250 mg tablet 2020 021 [email or web address] [id number], [address] [place], [place], [phone], 12:23:07 Cipro 500 mg tablet 2020 021 [email or web address] [facility] #[id number], [address] [place], [place], [phone], 12:21:55 Patient TargetsNo targets recorded. Patient Instructions Encounter Date Encounter Id Patient Instructions Last Modified By Organization Details Last Modified Time 11/15/2020 [id number] Patient is to follow up with provider. [email or web address] Not available 11/15/2020 17:00:25 Reason for Referral [...] ate 1) Sensi tivit y [facility] sis [place] te 1 ----- ----- ----- ----- ----- [...] s Desk [facility]. S= Susce ptibl e;I= Inter media te;R= Resis tant; ESBL= Resis tance due to confi rmed ESBL Not Available [facility] [address] [facility] [address], [place], [address], 11/01/2020 10:10:11 10/30/19 21 10/18/2020 CT, abdom en + pelvi s, w/ contr ast No observ ation record ed. [email or web address] Not Available 2020 09:31:35 Result Notes None recorded. Problems Name Problem SNOMED Code Status Onset Date Resolution Date Notes Provider Name and Address Organization Details Recorded Time Blood in urine [id number] Active 021 Marvin Robbins MD [address] [place] [address],[address], [place], [address], [facility] 10/30/2020 16:27:48 Problem Notes None recorded. Procedures Surgical History Date Name Laterality Status Provider Name and Address Organization Details Recorded Time 12/21/19 21 CystoscopyMale completed Marvin Robbins MD [address] [facility] [facility],[address], [place], [address], [facility] 12/20/2020 14:14:08 11/16/19 21 Torre Catheter Insertion completed [facility] 11/15/2020 17:05:13 11/16/19 21 Fill and Pull/Voiding Trial/TOV completed [facility] 11/15/2020 17:05:22 10/31/19 21 CystoscopyMale completed Marvin Robbins MD [address], [place], [address], [facility] 10/30/2020 17:55:08 Cardiac Surgery completed Marvin Robbins MD [address] [place] [address],[address], [place], [address], [facility] 10/30/2020 16:31:03 Cataract Surgery completed Denny Robbins MD [address] [place] [address],[address], [place], [address], [facility] 10/30/2020 16:31:33 Colonoscopy completed Marvin Robbins MD [address], [place], [address], [facility] 10/30/2020 16:31:42 Heart Surgery completed Marvin Robbins MD [address] [place] [address],[address], [place], [address], [facility] 10/30/2020 16:31:50 Orthopedic Surgery completed Cris Robbins MD [address] [place] [address],[address], [place], [address], [facility] 10/30/2020 16:31:56 Imaging Results Imaging Date [...] Name and Address Organization Details Recorded Time [id number] 2824e Lipitor medicatio n Not available Not available Not available 10/30/2020 95406 5 RxNorm Not Available Not Available Not Available [id number] 2824e lisinopri l medicatio n Not available Not available Not available 10/30/2020 68216 RxNorm Not Available Not Available Not Available [id number] 2824e metoclopr amide Not available Not available Not available Not available 10/30/2020 6915 RxNorm Not Available Not Available Not Available [id number] 2824e Reglan medicatio n Not available Not available Not available 10/30/2020 9230 RxNorm Not Available Not Available Not Available [id number] 2824e omeprazol e medicatio n Not available [...] DateTime 01/28/2022 182.88 cm Eriberto Yip MD [address] [place] [address],[address], [address] [place] [address], [facility] 01/28/2022 12:21:15 Date Recorded Body weight Provider Name an d Address Organization Details Last Updated DateTime 01/28/2022 32632.84 g Eriberto Yip MD [address] [place] [address],[address], [address] [place] [address], [facility] 01/28/2022 12:21:20 Date Recorded Body height Provider Name an d Address Organization Details Last Updated DateTime 10/30/2020 182.88 cm Marvin Robbins MD [address] [place] [address],[address], [address], [facility] 10/30/2020 16:21:03 Date Recorded Body mass index (BMI) Body weight Provider Name and Address Organization Details Last Updated DateTime 10/30/2020 30.4 kg/m2 060136.69 g Marvin Robbins MD [address] [place] [address],[address], [address], [facility] 10/30/2020 16:21:14 Date Recorded Body height Provider Name an d Address Organization Details Last Updated DateTime 11/15/2020 182.88 cm Vidya Akhtar [facility] y 11/15/2020 17:16:37 Date Recorded Body height Provider Name an d Address Organization Details Last Updated DateTime 12/20/2020 182.88 cm Ruby Encinas [facility] 12/20/2020 12:22:48 Date Recorded Body mass index (BMI) Body weight Provider Name and Address Organization Details Last Updated DateTime 12/20/2020 30.4 kg/m2 406745.69 g Ruby Encinas [facility] 12/20/2020 12:22:55 Social History Question Answer Notes LastModified by Organizat ion Details LastModified Time Tobacco Smoking Status Former Smoker Marvin Robbins MD [address], [place], [address], [facility] 10/30/2020 16:29:31 What Is Your Level [...] / Information not available 10/30/2020 Preferred Language Gambian Information not available 10/30/2020 Marital Status Informatio [...] available 10/30 16:28:52 Medical History Condition Response Diabetes Y High Blood Pressure Y High Cholesterol Y Heart Disease Y Lung Disease Y Immunizations Vaccine Type Date Status Note Provider Moreno persaud and Address Organization Details Recorded Time Pneumococcal conjugate PCV 13 5 completed Marvin Robbins MD [address], [place], [address], [facility] 10/30/2020 16:27:27 Past Encounters Encounter ID Performer Location Encounter Start Date Encounter Closed Date Diagnosis/Indication Diagnosis SNOMED-CT Code Diagnosis ICD10 Code Diagnosis Note [id number] MD RICK [facility] [address] [place] [address] 10/30/2020 15:45:07 11/01/2020 12:51:51 Acute cystitis 56784602 N30.01 Voiding trial in 3 weeks Pyocystis 184188415 N30. 80 Torre for 2-3 weeks for drainagewo uld consider a voiding trial and cysto in 2-3 weeksAbx for pyocystis [id number] MD RICK Bains_[place] [address] [place] [address] 11/15/2020 12:21:28 11/19/2020 11:48:02 Retention of urine 459414828 R33.9 [id number] MD RICK [place] [address] [place] [address] 12/20/2020 11:53:14 12/21/2020 15:08:02 Blood in urine 16334555 R31.9 H/o pyocystisC IC at the time of dialysisf/ u in 3 months [id number] MD RICK [facility]hat[facility] [address] [place] [address] 01/28/2022 11:55:03 01/31/2022 10:21:56 Retention of urine 094203441 R33.9 1. Urinary retention- has large capacity bladder- makes very little urine- continue weekly catheteriz ation (with Gentamicin bladder washing)- Follow-up in 1 year Cystitis 44178223 N30.90 2. Recurrent cystitis- continue Gentamicin bladder [...] ID Guarantor Name 10/30/2020 1 MEDICARE B: [facility] MEDICARE Korey Mackay [id number] Korey Mackay 10/30/2020 2 [facility] (MEDICARE SUPPLEMENT) 61 Korey Mackay [id number] Korey Mackay 11/15/2020 1 MEDICARE B: [facility] MEDICARE Korey Mackay [id number] Korey Mackya 11/15/2020 2 [facility] 61 Korey Chani Mackay [id number] Korey Mackay 12/20/2020 1 MEDICARE B: [facility] MEDICARE Korey Mackay [id number] Korey Mackay 12/20/2020 2 [facility] 61 Korey Mackay [id number] Korey Mackay 01/28/2022 1 MEDICARE B: [facility] MEDICARE Korey Mackay [id number] Korey Mackay 01/28/2022 2 [facility] 61 Korey Mackay [id number] Korey Mackay Notes Date Note Type Note [...] irrigate the bladder. Marvin Robbins MD [address], [place], [address], [facility] 10/30/2020 17:55:38 12/20/2020 text/html H/p intermittent gross hematuria in the past 3 weeks; on HD for ESRD. According to the patient he does not make urine ( 30 cc a day).He was admitted to the hospital times 2 with elevated PVR ( 500cc) and Pyocystis. His cysto today showed normal bladder mucosa; small prostate; failed a voiding trial. Marvin Robbins MD [address] [place] [address],[address], [place], [address], [facility] 12/20/2020 14:15:23 01/28/2022 text/html 81 yo [...] or hematuria.-------- - Eriberto Yip MD [address], [place], [address], [facility] 01/28/2022 13:29:56
--- OUTSIDE RECORDS SUMMARY | 2024-07-06 14:36 | XMS_ITS | Encounter Summary ---
Author Organization [facility] Address [address] [facility] [address] [place] [address] Care Team Providers Care Health Professor Name Role Phone Unavailable Primary Care Provider Unavailabl e Encounter Details Date Type Department Care Team (Late st Contact Info) Description 06/29/2024 Orders Only [facility] [place] [address] [facility] [address] [place] [address] Darren Youssef MD [address] [place] [address] Social History Tobacco Use Types [...] (06/29/2024) Hemoglobin 8.2(L) 14.0 - 18.0 g/dL [facility] Hemoglobin x 3 24.6(L) 42.0 - 54.0 % [facility] 06/29/2024 06/30/2024 2:1 7 AM AUTOMOBILE GLASS TECHNICIAN Narrative BERENICE - 06/30/2024 Unless otherwise specified, test(s) performed at: [facility], [address] [place] [address], [place] [address] MARKING CLERK: Rojas Kirkland M.D., Ph.D For any questions, please call customer service at FREQUENCY:OTHER Resulting Agency Comment Specimen source: Blood us Darren Youssef MD LAB BLOOD ORDERABLES Final Re sult [facility] See order comments or contact performing lab Unknown, [place] documented in this encounter Visit Diagnoses Not on filedocumented in this encounter
--- OUTSIDE RECORDS SUMMARY | 2024-07-06 14:36 | XMS_ITS | Encounter Summary ---
Author Organization [facility] Address [address] [place] [address] Care Team Providers Care Mid Level Net Developer Name Role Phone Unavailable Primary Care Provider Unavailabl e Encounter Details Date Type Department Care Team (Late st Contact Info) Description 06/20/2024 TCM in Dialysis Clinic [facility] [place] [address] [place] [address] Darren Youssef MD [address] [place] [address] Social History Tobacco Use Types [...] 06/20/2024 The patient was seen for a flqm-xv-gigl visit as part of Transitional Care Management services. Attending Engraved Roller Inspector: DARREN YOUSSEF Dialysis Location: [facility] Schedule: Shift: 2 INTERACTIVE CONTACT [...] medication orders reviewed - no changes. Current [facility] Medications albuterol sulfate 90 mcg/actuation HFA [...] capsule by mouth once a day. [facility] [phone] as-dr-xwm-mg tablet Take 1 tablet by mouth every [...] 97.4*F Current Dialysis Vitals BP Sit: 151/69 AP/YEAST TENDER: -160/220 Pulse: 69 CARE COORDINATION Post-discharge follow-up appointments reviewed with the patient. EDUCATION Education relevant to the discharge diagnosis provided to the patient or caregiver IMPRESSION & PLAN COMMENTS: Stable after hospital stay s/p partial amputation of toe Lower EDW Lung mass vs inflammatory change, repeat CT 2 months by PCP suggested. PCP post- discharge visit completed VISIT DIAGNOSES CPT Code 80601 - High complexity, seen 8-14 days post discharge or moderate complexity, seen [id number] days of discharge. N18.6 End stage renal [...]
--- OUTSIDE RECORDS SUMMARY | 2024-07-06 14:36 | XMS_ITS | Encounter Summary ---
Author Organization [facility] Address [address] [place] [address] Care Team Providers Care Provider Scribe Name Role Phone Unavailable Primary Care Provider Unavailabl e Encounter Details Date Type Department Care Team (Late st Contact Info) Description 06/20/2024 Orders Only [facility] [place] [address] [facility] [address] [place] [address] Darren Youssef MD [address] [place] [address] Social History Tobacco Use Types [...] [place] Lab Results (06/20/2024) spKt/V Gotch 1.43 [facility] Center PCR 75.47 [facility] spKt/V (Daugirdas II) 1.43 [facility] eKt/V (Tattersall) 1.23 [facility] nPCR_HD 1.04 [facility] eKt/V Gotch 1.21 [facility] eNPCR 0.96 [facility] eKdrt/V 1.21 [facility] WSTDKT/V 2.4 [facility] 06/20/2024 06/20/2024 [place] Ordering Provider LAB BLOOD ORDERABLES Final Result Performing Organization Address [facility] Co de Phone Number [facility] Contact Performing lab Unknown, [place] * HD KINETICS (06/20/2024) % Urea Reduction 71 65 - 80 % [facility] 06/20/2024 06/21/2024 10: 11 AM MEDICAL GENETICIST Narrative [facility] - 06/21/2024 Unless otherwise specified, test(s) performed at: [facility], [address] [place] [address], [place] [address] COUNT TEAM MEMBER: Rojas Kirkland M.D., Ph.D For any questions, please call customer service at FREQUENCY:OTHER Resulting Agency Comment Specimen source: Plasma Darren Youssef MD LAB BLOOD ORDERABLES Final Re sult Performing Organization Address [facility] de Phone Number [facility] See order comments or contact performing lab Unknown, [place] * (ABNORMAL) [facility] (06/20/2024) Pathologist [facility] BUN 76(H) 6 - 19 mg/dL [facility] 06/20/2024 06/21/2024 1:4 4 PM MEDICAL GENETICIST Narrative [facility] - 06/21/2024 Unless otherwise specified, test(s) performed at: [facility], [address] [place] [address], [place] [address] COUNT TEAM MEMBER: Rojas Kirkland M.D., Ph.D For any questions, please call customer service at FREQUENCY:OTHER Resulting Agency Comment Specimen source: Serum Darren Youssef MD LAB BLOOD ORDERABLES Final Re sult Performing Organization Address [facility] de Phone Number [facility] See order comments or contact performing lab Unknown, [place] * (ABNORMAL) POST CHEMISTRY (06/20/2024) BUN Post Dialysis 22(H) 6 - 19 mg/dL [email or web address] 06/20/2024 06/21/2024 10: 11 AM MEDICAL GENETICIST Narrative [facility] - 06/21/2024 Unless otherwise specified, test(s) performed at: [facility], [address] [place] [address], [place] [address] COUNT TEAM MEMBER: Rojas Kirkland M.D., Ph.D For any questions, please call customer service at FREQUENCY:OTHER Resulting Agency Comment Specimen source: Plasma us Darren Youssef MD LAB BLOOD ORDERABLES Final Re sult [employer] [facility] See order comments or contact performing lab Unknown, [place] documented in this encounter Visit Diagnoses Not on filedocumented in this encounter
--- OUTSIDE RECORDS SUMMARY | 2024-07-06 14:36 | XMS_ITS | Encounter Summary ---
Author Organization [facility] [place] Address [address] [place] [address] Care Team Providers Care Life Specialist Name Role Phone Unavailable Primary Care Provider Unavailabl e Encounter Details Date Type Department Care Team (Late st Contact Info) Description 06/20/2024 Treatment [facility] [place] [address] [place] [address] Darren Tran MD [address] [place] [address] Social History Tobacco Use Types [...] care for end stage renal disease. Attending Spice Mixer: DARREN TRAN Dialysis Location: [facility] Schedule: Shift: 2 OVERVIEW COMMENTS: [...] much better. HOME MEDICATIONS Medications reviewed. Current [facility] Outpatient Medications albuterol sulfate 90 mcg/actuation [...] capsule by mouth once a day. Dialy[facility] [phone] yz-hk-hgd-mg tablet Take 1 tablet by mouth every [...] 97.4*F Current Dialysis Vitals BP Sit: 151/69 AP/BARREL TESTER AND DRAINER: -160/220 Pulse: 69 TREATMENT MEDICATIONS ORDERS Iron [...]
--- OUTSIDE RECORDS SUMMARY | 2024-07-06 14:36 | XMS_ITS | Encounter Summary ---
Author Organization [facility] Address [address] [place] [address] Care Team Providers Care Loom Changeover Operator Name Role Phone Unavailable Primary Care Provider Unavailabl e Encounter Details Date Type Department Care Team (Late st Contact Info) Description 06/22/2024 Orders Only [facility] [place] [address] [facility] [address] [place] [address] Darren Youssef MD [address] [place] [address] Social History Tobacco Use Types [...] (06/22/2024) Hemoglobin 8.0(L) 14.0 - 18.0 g/dL [facility] Hemoglobin x 3 24.0(L) 42.0 - 54.0 % [facility] 06/22/2024 06/23/2024 10: 35 AM INJECTION MOLDING TECHNICIAN Narrative BERENICE - 06/23/2024 Unless otherwise specified, test(s) performed at: [facility], [address] [place] [address], [place] [address] TOUR CONSULTANT: Rojas Kirkland M.D., Ph.D For any questions, please call customer service at FREQUENCY:OTHER Resulting Agency Comment Specimen source: Blood us Darren Youssef MD LAB BLOOD ORDERABLES Final Re sult [facility] See order comments or contact performing lab Unknown, [place] documented in this encounter Visit Diagnoses Not on filedocumented in this encounter
--- OUTSIDE RECORDS SUMMARY | 2024-07-06 14:36 | XMS_ITS | Encounter Summary ---
Author Organization [facility] [place] Address [address] [place] [address] Care Team Providers Care Agriculture Specialist Name Role Phone Unavailable Primary Care Provider Unavailabl e Encounter Details Date Type Department Care Team (Late st Contact Info) Description 06/15/2024 Orders Only [facility] [place] [address] [facility] [address] [place] [address] Darren Youssef MD [address] [place] [address] Social History Tobacco Use Types [...] [place] Lab Results (06/15/2024) spKt/V Gotch 1.20 [facility] nPCR_HD 1.13 [facility] eKt/V Gotch 1.02 [facility] eKt/V (Tattersall) 1.02 [facility] eKdrt/V 1.02 [facility] WSTDKT/V 2.1 [facility] eNPCR 1.04 [facility] spKt/V (Daugirdas II) 1.19 [facility] PCR 79.26 [facility] 06/15/2024 06/15/2024 [place] Ordering Provider LAB BLOOD ORDERABLES Final Result [...] [facility] 06/15/2024 06/16/2024 12: 18 PM PATIENT BILLER Narrative [facility] - 06/16/2024 Unless otherwise specified, test(s) performed at: [facility], [address] [place] [address], [place] [address] ESTHETIC DERMATOLOGIST: Rojas Kirkland M.D., Ph.D For any questions, please call customer service at FREQUENCY:MONTHLY Resulting Agency Comment Specimen source: Blood Darren Youssef MD LAB BLOOD ORDERABLES Final Re sult Performing Organization Address [facility] de Phone Number [facility] See order comments or contact performing lab Unknown, [place] * HD KINETICS (06/15/2024) % Urea Reduction 65 65 - 80 % [facility] 06/15/2024 06/16/2024 10: 29 AM PATIENT BILLER Narrative Resulting Agency Comment Specimen source: Plasma Darren Youssef MD LAB BLOOD ORDERABLES Final Re sult Performing Organization Address [facility] Phone Number [facility] See order comments or contact performing lab Unknown, [place] * (ABNORMAL) POST CHEMISTRY (06/15/2024) BUN Post Dialysis 27(H) 6 - 19 mg/dL [facility] 06/15/2024 06/16/2024 10: 29 AM PATIENT BILLER Narrative [facility] - 06/16/2024 Unless otherwise specified, test(s) performed at: [facility], [address] [place] [address], [place] [address] ESTHETIC DERMATOLOGIST: Rojas Kirkland M.D., Ph.D For any questions, please call customer service at FREQUENCY:MONTHLY Resulting Agency Comment Specimen source: Plasma Darren Youssef MD LAB BLOOD ORDERABLES Final Re sult Performing Organization Address [facility] de Phone Number [facility] See order comments or contact performing [...] [facility] 06/15/2024 06/16/2024 9:2 4 AM PATIENT BILLER Narrative [facility]16[facility]2024 Unless otherwise specified, test(s) performed at: [facility] [place] [address] ESTHETIC DERMATOLOGIST: Rojas Kirkland M.D., Ph.D For any questions, please call customer service at FREQUENCY:MONTHLY Resulting Agency Comment Specimen source: Serum us Darren Youssef MD LAB BLOOD ORDERABLES Final Re sult [facility] See order comments or contact performing lab Unknown, [place] * IMMUNO CHEMISTRY (06/15/2024) Hep B Surface Ag Negative Negative [facility] 06/15/2024 06/16/2024 10: 07 AM PATIENT BILLER Narrative [facility] - 06/16/2024 Unless otherwise specified, test(s) performed at: [facility], [address] [place] [address], [place] [address] ESTHETIC DERMATOLOGIST: Rojas Kirkland M.D., Ph.D For any questions, please call customer service at FREQUENCY:MONTHLY Resulting Agency Comment Specimen source: Plasma us Darren Youssef MD LAB BLOOD ORDERABLES Final Re sult [facility] See order comments or contact performing lab Unknown, [place] documented in this encounter Visit Diagnoses Not on filedocumented in this encounter
--- OUTSIDE RECORDS SUMMARY | 2024-07-06 14:36 | XMS_ITS | Encounter Summary ---
Author Organization [facility] Address [address] [place] [address] Care Team Providers Care Chief Engineering Division Name Role Phone Unavailable Primary Care Provider Unavailabl e Reason for Visit * Reason Onset Date Comments Hospital Discharge 06/09/2024 [place] Encounter Details Date Type Department Care Team (Late st Contact Info) Description 06/09/2024 Telephone [facility] [address] [place] [address] Nehal Meredith, RN [address] [place] [address] Hospital Discharge ([place]) Social History Tobacco Use Types Packs/Day Years [...] Korey Mackay Patient : 1940 Patient Address: [address] [place] [id number] Patient Medications All medications were reviewed with [...] Care: questions if Midodrine will be a jail medication. Advised that it will depend how [...] will contact the PCP. Confirm dialysis location[place] [facility] [place] Scheduled date and time: MWF 1140AM Do [...]
--- OUTSIDE RECORDS SUMMARY | 2024-07-06 14:36 | XMS_ITS | Encounter Summary ---
Author Organization [facility] Address [address] [facility] [address] [place] [address] Care Team Providers Care Master Yacht Name Role Phone Unavailable Primary Care Provider Unavailabl e Encounter Details Date Type Department Care Team (Late st Contact Info) Description 06/10/2024 Orders Only [facility] [address] [facility] [address] [place] [address] Darren Youssef MD [address] [place] [address] Social History Tobacco Use Types [...] (06/10/2024) Hemoglobin 8.2(L) 14.0 - 18.0 g/dL [facility] Hemoglobin x 3 24.6(L) 42.0 - 54.0 % [facility] 06/10/2024 06/13/2024 10: 40 AM PAGEANT DIRECTOR Narrative BERENICE - 06/13/2024 Unless otherwise specified, test(s) performed at: [facility], [address] [place] [address], [place] [address] [employer]: Rojas Kirkland M.D., Ph.D For any questions, please call customer service at FREQUENCY:OTHER Resulting Agency Comment Specimen source: Blood us Darren Youssef MD LAB BLOOD ORDERABLES Final Re sult [facility] See order comments or contact performing lab Unknown, [place] documented in this encounter Visit Diagnoses Not on filedocumented in this encounter
--- OUTSIDE RECORDS SUMMARY | 2024-07-06 14:36 | XMS_ITS | Clinical Summary ---
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 Active Vit B Cplx #65-KC-L-Biot-Zi nc (Dialyvite) 6-118-186-50 du-lu-oeo-mg tablet Take 1 Tablet by mouth once daily. 07/02/19 24 Active clopidogreL (Plavix) 75 mg tabletIndication s:Bilateral carotid artery stenosis,Coronar y artery disease, unspecified vessel or lesion type, unspecified whether angina present, unspecified whether [place] or transplanted heart Take 1 Tablet (75 [...] needed 120 Tablet 1 5 11:00 AM RN RESIDENTIAL 06/08/19 25 Active arznr-ld-0-dha-e ik-xpsqgea-llv (MEGARED OMEGA-3 KRILL OIL) 1,000-230-60 mg cap [...] 11/04/2022 Pneumonia due to COVID-19 virus 02/06/2021 half-way (current) use of insulin 10/19/2020 CKD (chronic [...] of care unspecified Overview (07/10/2006): Non Q VT 06/14 Atherosclerosis of [place] co ronary artery of [place] heart with angina pectoris Overview (07/10/2006): Status [...] Department Care Team Description 07/05/[address] [facility] [address] [place] [address] Anna Marie Oglesby, DO Shortness Of Breath; Dizziness 06/28/2024 4:00 PM RN RESIDENTIAL Office Visit [facility] [address] [place] [address] Sneha De La Cruz MD CV Vascular Est (4 month follow up; discuss canceled carotid intervention. U/S scheduled prior. ) 06/28/2024 3:00 PM RN RESIDENTIAL - 06/28/2024 11:59 PM RN RESIDENTIAL Hospital Encounter [facility] [address] [place] [address] Sneha De La Cruz MD Leistner, Joseph S, R.TMau (ARRT) Bilateral carotid artery stenosis 06/28/2024 11:10 AM RN RESIDENTIAL Office Visit [facility] [address] [place] [address] Zeny Medley MD Musculoskeletal Problem (R shoulder/neck pain x 1 month); Leg Pain/problem (Upper thigh pain since angiogram ) 06/28/2024 Travel 06/23/2024 1:00 PM RN RESIDENTIAL Home Care Visit Replaced By [facility] [address] [place] [phone] Michelle Garnica RN SN - OASIS DISCHARGE 06/23/2024 9:45 AM RN RESIDENTIAL Office Visit [facility] [place] [address] [facility] [address] [place] [phone] Braulio Philippe DPM Post-op (Left foot, DOS 06/05/24, 2 week post op) 06/23/2024 Travel 06/20/2024 Telephone [facility] [address] [place], [place] [address] [address] [place] [address] Pankaj Brownlee MD Medication Management (SPIRIVA) 06/16/2024 2:55 PM RN RESIDENTIAL Office Visit [facility] [address] [place] [address] Braden Wilder MD Hospital F/U (Rule, 05/25/2024 - 06/08/2024, pneumonia ) 06/16/2024 Travel 06/14/2024 1:00 PM RN RESIDENTIAL Home Care Visit Replaced By [facility] [address] [place] [phone] Michelle Garnica, FRANCIA SN - HOME VISIT 06/13/2024 3:45 AM RN RESIDENTIAL Home Care Visit Replaced By [facility] [address] [place] [phone] Kristie Perera RN SN - WOUND/OSTOMY CHART CONSULT 06/11/2024 11:00 AM RN RESIDENTIAL Home Care Visit Replaced By [facility] [address] [place] [phone] Kelsy Yi, FRANCIA SN - OASIS START OF CARE 06/11/2024 Telephone Replaced By [facility] [address] [place] [phone] Kelsy Yi, sales and marketing intern (Need ongoing orders for home health) 06/11/2024 Plan of Care Documentation Replaced By [facility] [address] [place] [phone] 06/09/2024 Home Care Visit Replaced By [facility] [address] [place] [phone] Danitza Strange RN CARE COORDINATION 06/09/[address] [facility] [address] [place] [address] Sharri Osei, FRANCIA Hospital F/U; Primary RN Care Management (LACE 78) 06/07/2024 Travel 06/05/2024 7:20 AM RN RESIDENTIAL - 06/05/2024 8:31 AM RN RESIDENTIAL Surgery [facility] [address] [place] [address] Phillip Hutton DPM LEFT PARTIAL HALLUX AMPUTATION 06/05/2024 7:12 AM RN RESIDENTIAL Anesthesia Event [facility] [address] [place] [address] Magalis John MD Schumacher, Donna Mae Brockman, JUDIE 06/04/2024 Orders Only [facility] [address] [place] [phone] [facility] <No scans attached> 06/04/2024 Orders Only [facility] [address] [place] [phone] [facility] <No scans attached> 06/03/2024 1:41 PM RN RESIDENTIAL Anesthesia Event [facility] [address] [place] [address] Dominguez Gomez MD Schulte, Whitney R, MORTGAGE PROCESSING CLERK 06/03/2024 Travel 05/31/2024 Travel 05/25/2024 4:55 AM RN RESIDENTIAL - 06/08/2024 2:56 PM RN RESIDENTIAL Hospital Encounter [place] [address] [place] [address] [facility] Hospitalist Sheyla Wiley MD Thielman, Matthew Malachy, Luís Araujo MD Zamfirescu, MD Sergio Andrea, Phillip Wall, 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 [address] [place] [address] Trey Carlson MD Wound Check (on the bottom- has had for about 6 weeks/Has been using butt cream bacitracin and other otc creams ) 05/19/2024 Travel 05/16/[address] [facility] [address] [place] [address] Anna Marie Oglesby DO Refill Request (clopidogreL (Plavix) 75 mg table//) 04/29/2024 Telephone [facility] [address] [address] Arnie Jin MD Concerns 04/19/2024 10:30 AM RN RESIDENTIAL Office Visit [facility] [address] [place] [address] Arnie Jin MD Follow Up (Surgery canceled due to blockage/CTA 03/22/24//) 04/19/2024 Travel from Last 3 Months Immunizations [...] on file Legal Sex Male 5:26 AM RN RESIDENTIAL Gender Identity Not on file Sexual Orientation Not on file Occupation Industry Job Start Date Job End Date retired Not on file Not on file Not on file Obstetrics History Last Filed Vital Signs Vital Sign Reading Time Taken Comments Blood Pressure 136/66 06/28/2024 3:44 PM RN RESIDENTIAL Pulse 70 06/28/2024 3:44 PM RN RESIDENTIAL Temperature 36.9 C (98.4 F) 06/23/2024 12:55 PM RN RESIDENTIAL Respiratory Rate 18 06/23/2024 12:55 PM RN RESIDENTIAL Oxygen Saturation 98% 06/28/2024 3:44 PM RN RESIDENTIAL Inhaled Oxygen Concentration - - Weight 86.8 kg (191 lb 6.4 oz) 06/16/2024 2:48 P M RN RESIDENTIAL Height 182.9 cm (6') 06/11/2024 11:20 AM RN RESIDENTIAL Body Mass Index 25.96 06/11/2024 11:20 AM RN RESIDENTIAL Plan of Treatment Upcoming Encounters Date Type Department Care Team (Late st Contact Info) Description 07/07/2024 9:30 AM RN RESIDENTIAL Office Visit [facility] [address] [place] [address] Braulio Philippe DPM [address] [place] [address] 07/19/2024 11:00 AM RN RESIDENTIAL Office Visit [facility] [address] [place] [address] Anna Marie Oglesby DO [address] [place] [address] 07/20/2024 2:30 PM RN RESIDENTIAL Office Visit [facility] [address] [place] [phone] Trang Monroy MBBS [address] [place] [address] 07/21/2024 1:00 PM RN RESIDENTIAL Appointment [facility] [address] [place] [address] 07/21/2024 1:45 PM RN RESIDENTIAL Appointment [facility] [address] [place] [address] 10/14/2024 Cardiac Device Check [facility] [phone] Health Maintenance Due Date Last Done Comments [...] history exists Medical Devices Implanted Type Area Marine Steam Fitter Device Identifier Shelf Expiration Date Model / Serial / Lot Screw Sm Joint 3.5x80mm Os Slf Tppng Bob - [id number] Implanted:Qty: 1 on 04/15/2015 by Rj Bui MD at [facility] Left: Leg [employer] [id number]# / / Screw Sm Joint 4x85mm Axsos Lock Slf Tppng [address] - [id number] Implanted:Qty: 1 on 04/15/2015 by Rj Bui MD at [facility] Left: Leg [employer] [id number]# / / Screw Sm Joint 3.5x75mm Os Slf Tppng Bob - [id number] Implanted:Qty: 1 on 04/15/2015 by Rj Bui MD at [facility] Left: Leg [employer] [id number]# / / Screw Sm Joint 3.5x85mm Os Slf Tppng Bob - [id number] Implanted:Qty: 1 on 04/15/2015 by Rj Bui MD at [facility] Left: Leg [employer] [id number]# / / Plate Tib Lt 10 Hole A[employer] Prox Lateral - [id number] Implanted:Qty: 1 on 04/15/2015 by Rj Bui MD at [facility] Left: Leg [employer] [id number]# / / Screw Sm Joint 3.5x28mm Os Slf Tppng Bob - [id number] Implanted:Qty: 1 on 04/15/2015 by Rj Bui MD at [facility] Left: Leg [employer] [id number]# / / Screw Sm Joint 3.5x30mm Os Slf Tppng Bob - [id number] Implanted:Qty: 1 on 04/15/2015 by Rj Bui MD at [facility] Left: Leg [employer] [id number]# / / Screw Sm Joint 3.5x32mm Os Slf Tppng Bob - [id number] Implanted:Qty: 1 on 04/15/2015 by Rj Bui MD at [facility] Left: Leg [employer] [id number]# / / Screw Sm Joint 4x26mm [employer]xs[employer] Lock Slf Tppng [address] - [id number] Implanted:Qty: 1 on 04/15/2015 by Rj Bui MD at [facility] Left: Leg [employer] [id number]# / / Explanted Type Area Marine Steam Fitter Device Identifier Shelf Expiration Date Model / Serial / Lot K-Wire [place] 10pk - [id number] Explanted:Qty: 2 on 04/15/2015 at [facility] Left: Leg [employer] [id number]# / / Procedures Procedure Name Priority Date/Time Associated Diagnosis Comments US CAROTID DUPLEX BILATERAL Routine 06/28/2024 3:35 PM RN RESIDENTIAL Bilateral carotid artery stenosis GLUCOSE METER Timed 06/08/2024 8:11 AM RN RESIDENTIAL SCAN-CARDIAC STRIP 06/08/2024 12 :57 AM RN RESIDENTIAL GLUCOSE METER Timed 06/07/2024 9:02 PM RN RESIDENTIAL SCAN-CARDIAC STRIP 06/07/2024 4: 16 PM RN RESIDENTIAL PLATELET COUNT Today 06/07/2024 10:53 AM RN RESIDENTIAL BASIC METABOLIC PANEL Early AM 06/07/2024 10:53 AM RN RESIDENTIAL SCAN-CARDIAC STRIP 06/07/2024 10 :39 AM RN RESIDENTIAL GLUCOSE METER Timed 06/07/2024 7:58 AM RN RESIDENTIAL GLUCOSE METER Timed 06/06/2024 9:30 PM RN RESIDENTIAL GLUCOSE METER Timed 06/06/2024 5:06 PM RN RESIDENTIAL SCAN-CARDIAC STRIP 06/06/2024 4: 02 PM RN RESIDENTIAL GLUCOSE METER Timed 06/06/2024 12:14 PM RN RESIDENTIAL GLUCOSE METER Timed 06/06/2024 8:20 AM RN RESIDENTIAL SCAN-CARDIAC STRIP 06/05/2024 4: 51 PM RN RESIDENTIAL GLUCOSE METER Timed 06/05/2024 4:[address] HEAD BRAIN WO STAT 06/05/2024 4:00 PM RN RESIDENTIAL SCAN-CARDIAC STRIP 06/05/2024 2: 52 PM RN RESIDENTIAL SCAN-CARDIAC STRIP 06/05/2024 2: 52 PM RN RESIDENTIAL XR FOOT 3 VIEWS LEFT PORTABLE Routine 06/05/2024 8:56 AM RN RESIDENTIAL TISSUE CULTURE, STAIN (AEROBIC) Today 06/05/2024 7:42 AM RN RESIDENTIAL ANAEROBIC CULTURE Today 06/05/2024 7:4 2 AM RN RESIDENTIAL PATH TISSUE EXAM Today 06/05/2024 7:40 AM RN RESIDENTIAL GLUCOSE METER Timed 06/05/2024 7:11 AM RN RESIDENTIAL AMPUTATION TOE 06/05/2024 7:02 AM RN RESIDENTIAL LEFT HALLUX INFECTION Case Notes SAGITTAL SAW GLUCOSE METER Timed 06/04/2024 10:57 PM RN RESIDENTIAL SCAN-CARDIAC STRIP 06/04/2024 8: 40 PM RN RESIDENTIAL SCAN-CARDIAC STRIP 06/04/2024 8: 40 PM RN RESIDENTIAL GLUCOSE METER Timed 06/04/2024 4:52 PM RN RESIDENTIAL BASIC METABOLIC PANEL Today 06/04/2024 9:54 AM RN RESIDENTIAL GLUCOSE METER Timed 06/04/2024 8:37 AM RN RESIDENTIAL SCAN-CARDIAC STRIP 06/04/2024 8: 15 AM RN RESIDENTIAL SCAN-CARDIAC STRIP 06/04/2024 2: 25 AM RN RESIDENTIAL HEMOGLOBIN STAT 06/03/2024 8:05 PM RN RESIDENTIAL BASIC METABOLIC PANEL Today 06/03/2024 8:05 PM RN RESIDENTIAL GLUCOSE METER Timed 06/03/2024 7:36 PM RN RESIDENTIAL HCHG ACTIVATED CLOTTING TM CV Timed 06/03/2024 3:09 PM RN RESIDENTIAL HCHG ACTIVATED CLOTTING TM CV Timed 06/03/2024 2:38 PM RN RESIDENTIAL GLUCOSE METER Timed 06/03/2024 12:30 PM RN RESIDENTIAL CBC W PLT NO DIFF Early AM 06/03/2024 9:5 9 AM RN RESIDENTIAL SCAN-CARDIAC STRIP 06/03/2024 9: 43 AM RN RESIDENTIAL GLUCOSE METER Timed 06/03/2024 8:12 AM RN RESIDENTIAL GLUCOSE METER Timed 06/02/2024 9:05 PM RN RESIDENTIAL IR PICC LINE Routine 06/02/2024 3:26 PM RN RESIDENTIAL GLUCOSE METER Timed 06/02/2024 1:39 PM RN RESIDENTIAL MR FOOT LEFT WO Routine 06/02/2024 11:30 AM RN RESIDENTIAL SCAN-CARDIAC STRIP 06/02/2024 9: 44 AM RN RESIDENTIAL GLUCOSE METER Timed 06/02/2024 7:59 AM RN RESIDENTIAL GLUCOSE METER Timed 06/02/2024 6:58 AM RN RESIDENTIAL HEMOGLOBIN Early AM 06/02/2024 6:15 AM RN RESIDENTIAL WHITE BLOOD COUNT Early AM 06/02/2024 6:1 5 AM RN RESIDENTIAL BASIC METABOLIC PANEL Early AM 06/02/2024 6:15 AM RN RESIDENTIAL GLUCOSE METER Timed 06/01/2024 10:09 PM RN RESIDENTIAL US ARTERIAL LOWER EXTREMITY W RITA BILATERAL Routine 06/01/2024 8:15 PM RN RESIDENTIAL GLUCOSE METER Timed 06/01/2024 5:09 PM RN RESIDENTIAL GLUCOSE METER Timed 06/01/2024 8:28 AM RN RESIDENTIAL SCAN-CARDIAC STRIP 06/01/2024 7: 51 AM RN RESIDENTIAL VANCOMYCIN Early AM 06/01/2024 6:29 AM RN RESIDENTIAL HEMOGLOBIN Early AM 06/01/2024 6:29 AM RN RESIDENTIAL WHITE BLOOD COUNT Early AM 06/01/2024 6:2 9 AM RN RESIDENTIAL BASIC METABOLIC PANEL Early AM 06/01/2024 6:29 AM RN RESIDENTIAL GLUCOSE METER Timed 05/31/2024 11:03 PM RN RESIDENTIAL GLUCOSE METER Timed 05/31/2024 6:20 PM RN RESIDENTIAL ANAEROBIC CULTURE Today 05/31/2024 4:3 3 PM RN RESIDENTIAL AEROBIC BACTERIAL CULTURE, STAIN Today 05/31/2024 4:33 PM RN RESIDENTIAL XR FOOT 3 VIEWS LEFT SUZI 05/31/2024 1:53 PM RN RESIDENTIAL ECHO TTE COMPLETE WO CONTRAST Routine 05/31/2024 12:49 PM RN RESIDENTIAL GLUCOSE METER Timed 05/31/2024 11:55 AM RN RESIDENTIAL GLUCOSE METER Timed 05/31/2024 8:57 AM RN RESIDENTIAL SCAN-CARDIAC STRIP 05/31/2024 7: 47 AM RN RESIDENTIAL HEMOGLOBIN A1C SUZI 05/31/2024 7:21 AM RN RESIDENTIAL PLATELET COUNT SUZI 05/31/2024 7:21 AM RN RESIDENTIAL MAGNESIUM Add On 05/31/2024 7:21 AM RN RESIDENTIAL HEMOGLOBIN Early AM 05/31/2024 7:21 AM RN RESIDENTIAL WHITE BLOOD COUNT Early AM 05/31/2024 7:2 1 AM RN RESIDENTIAL BASIC METABOLIC PANEL Early AM 05/31/2024 7:21 AM RN RESIDENTIAL GLUCOSE METER Timed 05/30/2024 5:15 PM RN RESIDENTIAL SCAN-CARDIAC STRIP 05/30/2024 4: 52 PM RN RESIDENTIAL GLUCOSE METER Timed 05/30/2024 1:04 PM RN RESIDENTIAL SCAN CORRESP-IMAGING 05/30/2024 12:50 PM RN RESIDENTIAL SCAN CORRESP-EKG RESULTS 05/30/2024 12:28 PM RN RESIDENTIAL HEMOGLOBIN Early AM 05/30/2024 8:42 AM RN RESIDENTIAL WHITE BLOOD COUNT Early AM 05/30/2024 8:4 2 AM RN RESIDENTIAL BASIC METABOLIC PANEL Early AM 05/30/2024 8:42 AM RN RESIDENTIAL GLUCOSE METER Timed 05/30/2024 8:09 AM RN RESIDENTIAL SCAN-CARDIAC STRIP 05/30/2024 7: 29 AM RN RESIDENTIAL GLUCOSE METER Timed 05/29/2024 8:40 PM RN RESIDENTIAL GLUCOSE METER Timed 05/29/2024 5:02 PM RN RESIDENTIAL GLUCOSE METER Timed 05/29/2024 11:58 AM RN RESIDENTIAL SCAN-CARDIAC STRIP 05/29/2024 8: 32 AM RN RESIDENTIAL GLUCOSE METER Timed 05/29/2024 7:50 AM RN RESIDENTIAL PRO-BNP SUZI 05/29/2024 5:14 AM RN RESIDENTIAL HEMOGLOBIN Early AM 05/29/2024 5:14 AM RN RESIDENTIAL WHITE BLOOD COUNT Early AM 05/29/2024 5:1 4 AM RN RESIDENTIAL BASIC METABOLIC PANEL Early AM 05/29/2024 5:14 AM RN RESIDENTIAL GLUCOSE METER Timed 05/28/2024 9:44 PM RN RESIDENTIAL GLUCOSE METER Timed 05/28/2024 6:12 PM RN RESIDENTIAL GLUCOSE METER Timed 05/28/2024 1:01 PM RN RESIDENTIAL SCAN-CARDIAC STRIP 05/28/2024 11 :31 AM RN RESIDENTIAL GLUCOSE METER Timed 05/28/2024 9:07 AM RN RESIDENTIAL ELECTROLYTE PANEL Early AM 05/28/2024 5:0 2 AM RN RESIDENTIAL CBC W PLT NO DIFF Early AM 05/28/2024 5:0 2 AM RN RESIDENTIAL GLUCOSE METER Timed 05/27/2024 4:42 PM RN RESIDENTIAL XR CHEST 1 VIEW PORTABLE STAT 05/27/2024 4:40 PM RN RESIDENTIAL GLUCOSE METER Timed 05/27/2024 12:17 PM RN RESIDENTIAL SCAN-CARDIAC STRIP 05/27/2024 11 :15 AM RN RESIDENTIAL GLUCOSE METER Timed 05/26/2024 9:40 PM RN RESIDENTIAL GLUCOSE METER Timed 05/26/2024 4:52 PM RN RESIDENTIAL GLUCOSE METER Timed 05/26/2024 11:24 AM RN RESIDENTIAL SCAN-CARDIAC STRIP 05/26/2024 10 :29 AM RN RESIDENTIAL GLUCOSE METER Timed 05/26/2024 8:57 AM RN RESIDENTIAL GLUCOSE METER Timed 05/25/2024 5:44 PM RN RESIDENTIAL SCAN-CARDIAC STRIP 05/25/2024 9: 28 AM RN RESIDENTIAL GLUCOSE METER Timed 05/25/2024 8:23 AM RN RESIDENTIAL TROPONIN T (HS) ONE TIME Timed 05/25/2024 7:26 AM RN RESIDENTIAL SCAN-CARDIAC STRIP 05/25/2024 5: 46 AM RN RESIDENTIAL PRO-BNP Today 05/25/2024 5:37 AM RN RESIDENTIAL TROPONIN T (HS) ACUTE W/2HR REFLEX STAT 05/25/2024 5:37 AM RN RESIDENTIAL PROCALCITONIN Today 05/25/2024 5:37 AM RN RESIDENTIAL BASIC METABOLIC PANEL Today 05/25/2024 5:37 AM RN RESIDENTIAL CBC W PLT NO DIFF Today 05/25/2024 5:2 3 AM RN RESIDENTIAL from Last 3 Months Results * US CAROTID DUPLEX BILATERAL (06/28/2024 3:35 PM RN RESIDENTIAL) Anatomical Region Laterality Modality CAROTID, NECK Ultrasound 06/28/2024 3:10 PM RN RESIDENTIAL Narrative 06/29/2024 8:31 AM RN RESIDENTIAL VASCULAR ULTRASOUND REPORT SHERYL SERRANO : 1940 Study Date: 06/28/2024 3:10:36 PM Age: 84 years Tech: JA Gender: M Referring MD: SNEHA DE LA CRUZ Site: [facility] Study performed: Carotid Indication [...] Accreditation Commission (IAC/Vascular), www.intersocietal.org/vascular Report generated by [facility]. Final Procedure Note Gary Petersen MD - 06/29/2024 VASCULAR ULTRASOUND REPORT SHERYL SERRANO : 1940 Study Date: 06/28/2024 3:10:36 PM Age: 84 years Tech: JA Gender: M Referring MD: SNEHA DE LA CRUZ Site: [facility] Study performed: Carotid Indication [...] theIntersocietal Accreditation Commission (IAC/Vascular),www.intersocietal.org/vascular Report generated by [facility]. Final us Sneha De La Cruz MD US Final R esult * (ABNORMAL) GLUCOSE METER (06/08/2024 8:11 AM RN RESIDENTIAL) Only the most recent of45 resultswithin the time period is included. GLUCOSE METER 150(H) 65 - 100 mg/dL 06/08/2024 8:[address] [facility] Blood BLOOD SPECIMEN / Unknown 06/08/2024 8:11 AM RN RESIDENTIAL 06/08/2024 8:20 AM RN RESIDENTIAL us Phillip Hill DO CHEMISTRY Aleah l Result Performing Organization Address [facility]/ZIP Co de Phone Number [facility] SENDOUT INTERNAL ZIP [phone] [place] [phone] * SCAN-CARDIAC STRIP (06/08/2024 12:57 AM RN RESIDENTIAL) us Scanner OTHER Final Result * SCAN-CARDIAC STRIP (06/07/2024 4:16 PM RN RESIDENTIAL) us Scanner OTHER Final Result * PLATELET COUNT (06/07/2024 10:53 AM RN RESIDENTIAL) Only the most recent of2 resultswithin the time period is included. Pathologist [facility] PLATELET COUNT 169 140 - 440 thou/cu mm 06/07/2024 11:[address] [facility] MPV 10.0 6.5 - 11.0 fL 06/07/2024 11:[address] [facility] Blood BLOOD SPECIMEN / Unknown Non-Lab Venipuncture / Unknown 06/07/2024 10:53 AM RN RESIDENTIAL 06/07/2024 11:04 AM RN RESIDENTIAL us Sheyla Chaudhry MD HEMATOLOGY Final Re sult [facility] SENDOUT INTERNAL ZIP [phone] [place] [phone] * (ABNORMAL) BASIC METABOLIC PANEL (06/07/2024 10:53 AM RN RESIDENTIAL) Only the most recent of9 resultswithin the time period is included. SODIUM 135(L) 136 - 145 mmol/L 06/07/2024 11:25 AM [facility] POTASSIUM 4.1 3.5 - 5.1 mmol/L 06/07/2024 11:25 AM [facility] CHLORIDE 96(L) 98 - 107 mmol/L 06/07/2024 11:25 AM [facility] CO2,TOTAL 28 22 - 29 mmol/L 06/07/2024 11:25 AM [facility] ANION GAP 11 5 - 18 06/07/2024 11:25 AM [facility] GLUCOSE 111(H) 70 - 99 mg/dL 06/07/2024 11:25 AM [facility] CALCIUM 8.8 8.8 - 10.4 mg/dL 06/07/2024 11:25 AM [facility] Comment: Reference ranges for this test were updated on 04/12/2024 to reflect our healthy population more accurately. Reference range changes are not retroactively applied to results, but previous results using the same methodology can be interpreted in the context of the new reference range. BUN 35(H) 8 - 23 mg/dL 06/07/2024 11:25 AM [facility] CREATININE 4.83(H) 0.70 - 1.20 mg/dL 06/07/2024 11:25 AM [facility] BUN/CREAT RATIO 7(L) 10 - 20 11:25 AM [facility] eGFR 11(L) >90 mL/min/1. 73m2 06/07/2024 11:25 AM [facility] Comment:As of 2021, eG FR is calculated by the CKD-EPI creatinine equation without race adjustment. eGFR can be influenced by muscle mass, exercise, and diet. The reported eGFR is an estimation only and is only applicable if the renal function is stable. Blood BLOOD SPECIMEN / Unknown Non-Lab Venipuncture / Unknown 06/07/2024 10:53 AM RN RESIDENTIAL 06/07/2024 11:[address] [facility] us Phillip Pack DO CHEMISTRY Final Resul t [facility] SENDOUT INTERNAL ZIP [phone] [place] [address] * SCAN-CARDIAC STRIP (06/07/2024 10:39 AM RN RESIDENTIAL) us Scanner OTHER Final Result * SCAN-CARDIAC STRIP (06/06/2024 4:02 PM RN RESIDENTIAL) us Scanner OTHER Final Result * SCAN-CARDIAC STRIP (06/05/2024 4:51 PM RN RESIDENTIAL) us Scanner OTHER Final Result * CT HEAD BRAIN WO (06/05/2024 4:00 PM RN RESIDENTIAL) Anatomical Region Laterality Modality HEAD, BRAIN Computed Tomogra phy 06/05/2024 4:00 PM RN RESIDENTIAL Impressions 06/05/2024 4:51 PM RN RESIDENTIAL 1. No CT evidence for acute intracranial process. 2. Brain atrophy and presumed chronic microvascular ischemic changes as above. Narrative 06/05/2024 4:51 PM RN RESIDENTIAL For Patients: As a result of the Cures Act, medical imaging exams and procedure reports are released immediately into your electronic medical record. You may view this report before your referring provider. If you have questions, please contact your health care provider. EXAM: CT HEAD BRAIN WO LOCATION: [facility] MEDICAL IMAGING DATE: 06/05/2024 INDICATION: [...] provider. EXAM: CT HEAD BRAIN WO LOCATION: [facility] MEDICAL IMAGING DATE: 06/05/2024 INDICATION: [...] esult * SCAN-CARDIAC STRIP (06/05/2024 2:52 PM RN RESIDENTIAL) us Scanner OTHER Final Result * SCAN-CARDIAC STRIP (06/05/2024 2:52 PM RN RESIDENTIAL) us Scanner OTHER Final Result * XR Foot 3 Views Left Portable- Non-Weight Bearing (06/05/2024 8:56 AM RN RESIDENTIAL) Anatomical Region Laterality Modality FEET, FOOT L Computed Radiogr aphy 06/05/2024 8:56 AM RN RESIDENTIAL Impressions 06/05/2024 9:34 AM RN RESIDENTIAL Interval amputation right great toe at the level of the base of the proximal phalanx. No new bony erosive change to suggest osteomyelitis. 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 Osteopenia. No acute fracture. Arteriovascular calcifications. Narrative 06/05/2024 9:34 AM RN RESIDENTIAL For Patients: As a result of the [...] Osteopenia.No acute fracture. Arteriovascular calcifications. Phillip Hutton DP GENERAL IMAGING Final Resul t * (ABNORMAL) TISSUE CULTURE, STAIN (AEROBIC) (06/05/2024 7:42 AM RN RESIDENTIAL) CULTURE RESULT(A) 06/08/2024 9:33 AM RN RESIDENTIAL [facility]-CE NTRAL LABORATORY CULTURE 1+ Staphylococcus aureus 06/08/2024 9:33 AM RN RESIDENTIAL [facility] GRAM STAIN 1+ PMNs 06/08/2024 9:[address] [facility] GRAM STAIN No Epithelial cells 06/08/2024 9:[address] [facility] GRAM STAIN 1+ RBCs 06/08/2024 9:[address] [facility] GRAM STAIN No organisms seen 025 9:[address] [facility] GRAM STAIN Gram stain performed by [place] 06/08/2024 9:[address] [facility] Bone (Left Great Toe) Non-Blood / Unknown 06/05/2024 7:42 AM RN RESIDENTIAL 06/05/2024 8:36 AM RN RESIDENTIAL Narrative Organism Antibiotic Method Susceptibility Staphylococcus aureus OXACILLIN <=0.25: S Comment:Oxacillin wetzel sceptible should not be interpreted as penicillin or amoxicillin susceptible. Staphylococcus aureus CLINDAMYCIN 0.25: S Staphylococcus aureus DOXYCYCLINE <=0.5: S Staphylococcus aureus CEFAZOLIN S Staphylococcus aureus TRIMETHOPRIM/SULF <=0.5/9.5: S Phillip Hutton DPM MICROBIOLOGY Final Resul t Performing Organization Address City/[facility]/ZIP Co de Phone Number [facility] [address] [place] [address], [facility] SENDOUT INTERNAL ZIP [address] [address] * ANAEROBIC CULTURE (06/05/2024 7:42 AM RN RESIDENTIAL) Only the most recent of2 resultswithin the time period is included. CULTURE No anaerobes isolated 06/10/2024 10:03 AM RN RESIDENTIAL [facility] TRAL LABORATORY Bone (Left Great Toe) Non-Blood / Unknown 06/05/2024 7:42 AM RN RESIDENTIAL 06/05/2024 8:36 AM RN RESIDENTIAL Phillip Hutton DPM MICROBIOLOGY Final Resul t Performing Organization Address [facility] Co de Phone Number [facility] [address] [place] [address], * PATH TISSUE EXAM (06/05/2024 7:40 AM RN RESIDENTIAL) Case Report Pathology Report Case: [id number] Authorizing Provider: Phillip Hutton DPM Collected: 06/05/2024 0740 Ordering Location: [facility] Received: 06/06/2024 0741 Pathologist: Zohra Lou DO Specimen: Left Great Toe, LEFT GREAT HALLUX 06/09/2024 11:27 AM RN RESIDENTIAL [facility]- ENTRAL LABORATORY Final Diagnosis A) FOOT, LEFT, GREAT TOE/HALLUX, AMPUTATION: 1. Focally acute and chronic osteomyelitis 2. Overlying gangrenous ulceration is present 3. Presumed proximal bone margin is negative for osteomyelitis (see comment) 4. Negative for malignancy 06/09/2024 11:27 AM RN RESIDENTIAL [facility]-C ENTRAL LABORATORY Comment The specimen in this case was submitted in multiple fragments, and the bone margin was not separately submitted or designated specifically. Gross examination reveals one bone fragment with a flattened surface which is presumed to be the true margin, and this fragment is negative for osteomyelitis. 06/09/2024 11:27 AM [facility]-C ENTRAL LABORATORY Clinical Information Mr. Serrano is a 84 y.o. who has a history of diabetes mellitus, chronic kidney disease, peripheral arterial disease and left lower extremity wounds with suspected osteomyelitis of the distal and proximal phalanx of the left great toe. The patient underwent partial hallux amputation of the left foot. 06/09/2024 11:27 AM [facility] ENTRAL LABORATORY Gross Description A) Received in [...] on cut surface. No lesion is identified. Toe Closing Machine Tender sections are submitted: 1. Great toe: skin ulcer to nearest margin and bone underlying ulcer (decal) 2-3. Two pieces of flattened bone fragments: Presumed en face bony margin in 2 (decal) 4. Fibrotic soft tissue TTP 06/06/2024 06/09/2024 11:27 AM RN RESIDENTIAL [facility] ENTRWY LABORATORY Microscopic Description The final diagnosis is based on microscopic examination of appropriate sections of all specimens. 06/09/2024 11:[address] [facility] Additional Information Interpreted at [facility], Central Laboratory - [address], [place] [address] 06/09/2024 11:27 AM RN RESIDENTIAL [facility] ENTRAL LABORATORY Tissue (Left Great Toe) 06/05/2024 7:40 AM RN RESIDENTIAL 06/06/2024 7:41 AM RN RESIDENTIAL us Phillip Hutton DPStefany PATHOLOGY/CYTOLOGY Final Re sult [facility] [address] [place] [address], [facility] SENDOUT INTERNAL ZIP [phone] [place] [address] * SCAN-CARDIAC STRIP (06/04/2024 8:40 PM RN RESIDENTIAL) us Scanner OTHER Final Result * SCAN-CARDIAC STRIP (06/04/2024 8:40 PM RN RESIDENTIAL) us Scanner OTHER Final Result * SCAN-CARDIAC STRIP (06/04/2024 8:15 AM RN RESIDENTIAL) us Scanner OTHER Final Result * SCAN-CARDIAC STRIP (06/04/2024 2:25 AM RN RESIDENTIAL) us Scanner OTHER Final Result * (ABNORMAL) Hemoglobin - PSYCHOLOGY INTERN (06/03/2024 8:05 PM RN RESIDENTIAL) Only the most recent of6 resultswithin the time period is included. HEMOGLOBIN 8.0(L) 13.5 - 17.5 g/dL 06/03/2024 8:[address] [facility] MCV 93 80 - 100 fL 06/03/2024 8:[address] [facility] Blood BLOOD SPECIMEN / Unknown Line/Port / Unknown 06/03/2024 8:05 PM RN RESIDENTIAL 06/03/2024 8:12 PM RN RESIDENTIAL Narrative [facility] - 06/03/2024 8:18 PM RN RESIDENTIAL For chest pain, tachycardia, or hypotension present. us Emily Montes De Oca MD HEMATOLOGY Final R esult [facility] SENDOUT INTERNAL ZIP [phone] [place] [address] * (ABNORMAL) ACTIVATED CLOTTING TIME VLV045 ACT (06/03/2024 3:09 PM RN RESIDENTIAL) Only the most recent of2 resultswithin the time period is included. ACTIVATED CLOTTING TIME, POCT 211(H) 74 - 125 sec 06/03/2024 3:[address] [facility] Blood BLOOD SPECIMEN / Unknown 06/03/2024 3:09 PM RN RESIDENTIAL 06/03/2024 3:33 PM RN RESIDENTIAL Emily Montes De Oca MD HEMATOLOGY Final R esult [facility] SENDOUT INTERNAL ZIP [phone] [place] [address] * (ABNORMAL) CBC W PLT NO DIFF (06/03/2024 9:59 AM RN RESIDENTIAL) Only the most recent of3 resultswithin the time period is included. WHITE BLOOD COUNT 5.1 4.5 - 11.0 thou/cu mm 06/03/2024 10:14 AM [facility] RED BLOOD COUNT 2.39(L) 4.30 - 5.90 mil/cu mm 06/03/2024 10:14 AM [facility] HEMOGLOBIN 7.6(L) 13.5 - 17.5 g/dL 06/03/2024 10:14 AM [facility] HEMATOCRIT 22.1(L) 37.0 - 53.0 % 06/03/2024 10:14 AM [facility] MCV 93 80 - 100 fL 06/03/2024 10:14 AM [facility] MCH 31.8 26.0 - 34.0 pg 06/03/2024 10:14 AM [facility] MCHC 34.4 32.0 - 36.0 g/dL 06/03/2024 10:[address] [facility] RDW 14.0 11.5 - 15.5 % 06/03/2024 10:14 AM [facility] PLATELET COUNT 165 140 - 440 thou/cu mm 06/03/2024 10:[address] [facility] MPV 10.6 6.5 - 11.0 fL 06/03/2024 10:[address] [facility] NRBC 0.0 % 06/03/2024 10:[address] [facility] ABS NRBC 0.0 thou /cu mm 06/03/2024 10:[address] [facility] Blood BLOOD SPECIMEN / Unknown Butterfly / Unknown 06/03/2024 9:59 AM RN RESIDENTIAL 06/03/2024 10:06 AM RN RESIDENTIAL Elier ESTRELLA HEMATOLOGY Final Resu lt [facility] SENDOUT INTERNAL ZIP [phone] [place] [address] * SCAN-CARDIAC STRIP (06/03/2024 9:43 AM RN RESIDENTIAL) us Scanner OTHER Final Result * IR PICC LINE (06/02/2024 3:26 PM RN RESIDENTIAL) Anatomical Region Laterality Modality X-Ray Angiograph y, Other, Other 06/02/2024 3:26 PM RN RESIDENTIAL Impressions 06/02/2024 4:05 PM RN RESIDENTIAL Successful placement of PICC line. Narrative 06/02/2024 4:05 PM RN RESIDENTIAL For Patients: As a result of the Century Cures Act, medical imaging exams and procedure reports are released immediately into your electronic medical record. You may view this report before your referring provider. If you have questions, please contact your health care provider. [facility] LOCATION: [facility] MEDICAL IMAGING DATE: 06/02/2024 PROCEDURE: [...] Prior to the procedure, the surgeon and reproductive healthcare assistant performed hand hygiene and wore hat, [...] brachial vein was accessed and a 5 Tuvaluan, 38 cm, double-lumen power PICC Solo peripherally [...] questions, please contact your health care provider. [facility] LOCATION: [facility] MEDICAL IMAGING DATE: 06/02/2024 PROCEDURE: [...] drape. Prior to the procedure, thesurgeon and reproductive healthcare assistant performed hand hygiene and wore hat, [...] brachial vein was accessed and a 5 Tuvaluan, 38 cm, double-lumenpower PICC Solo peripherally inserted central catheter was placed underfluoroscopic guidance with its tip near the caval atrial junction. FINDINGS: Ultrasound shows an anechoic and compressible right brachial and rightinternal jugular vein. The completion fluoroscopic images show the catheter tip to lie near thecavoatrial junction. IMPRESSION: Successful placement of PICC line. us Patricia Lyman NP IR Final Resul t * MR FOOT LEFT WO (06/02/2024 11:30 AM RN RESIDENTIAL) Anatomical Region Laterality Modality FOOT L Magnetic Resonan ce, Other 06/02/2024 11:3 0 AM RN RESIDENTIAL Impressions 06/02/2024 11:56 AM RN RESIDENTIAL 1. Soft tissue ulceration at the dorsal [...] radiopaque foreign body. Narrative 06/02/2024 11:56 AM RN RESIDENTIAL For Patients: As a result of the Cures Act, medical imaging exams and procedure reports are released immediately into your electronic medical record. You may view this report before your referring provider. If you have questions, please contact your health care provider. EXAM: MR FOOT LEFT WO LOCATION: [facility] MEDICAL IMAGING DATE: 06/02/2024 INDICATION: [...] provider. EXAM: MR FOOT LEFT WO LOCATION: [facility] MEDICAL IMAGING DATE: 06/02/2024 INDICATION: [...] Result * SCAN-CARDIAC STRIP (06/02/2024 9:44 AM RN RESIDENTIAL) us Scanner OTHER Final Result * WHITE BLOOD COUNT (06/02/2024 6:15 AM RN RESIDENTIAL) Only the most recent of5 resultswithin the time period is included. WHITE BLOOD COUNT 5.2 4.5 - 11.0 thou/cu mm 06/02/2024 6:[address] [facility] NRBC 0.0 % 06/02/2024 6:[address] [facility] ABS NRBC 0.0 thou /cu mm 06/02/2024 6:[address] [facility] Blood BLOOD SPECIMEN / Unknown Non-Lab Venipuncture / Unknown 06/02/2024 6:15 AM RN RESIDENTIAL 06/02/2024 6:26 AM RN RESIDENTIAL us Luís Porter MD HEMATOLOGY Fi nal Result [facility] SENDOUT INTERNAL ZIP [phone] [place] [address] * US ARTERIAL LOWER EXTREMITY W RITA BILATERAL (06/01/2024 8:15 PM RN RESIDENTIAL) Anatomical Region Laterality Modality LEGS Ultrasound 06/01/2024 8:15 PM RN RESIDENTIAL Impressions 06/01/2024 8:45 PM RN RESIDENTIAL 1. RIGHT LOWER EXTREMITY: Non calculable RITA [...] stenosis is visualized. Narrative 06/01/2024 8:45 PM RN RESIDENTIAL For Patients: As a result of the Cures Act, medical imaging exams and procedure reports are released immediately into your electronic medical record. You may view this report before your referring provider. If you have questions, please contact your health care provider. EXAM: 1. RESTING ANKLE-BRACHIAL INDICES (ABIs) 2. DUPLEX ARTERIAL ULTRASOUND OF THE LOWER EXTREMITIES BILATERALLY LOCATION: [facility] MEDICAL IMAGING DATE: 06/01/2024 INDICATION: [...] Velocities described below. RIGHT LOWER EXTREMITY (cm/s): PRESCHOOL HEAD TEACHER: 88, T PFA: 209, T SFA (proximal): 117, T SFA (mid): 262, B SFA (distal): 73, B Pop A Prox: 35, B Pop A Dist: 45, B SPRINKLER FITTER Dist: 101, B SULTANA: No significant flow. DPA: No significant flow. (M=monophasic, B=biphasic, T=triphasic) LEFT LOWER EXTREMITY (cm/s): PRESCHOOL HEAD TEACHER: 95, T PFA: 205, T SFA (proximal): 149, T SFA (mid): 111, T SFA (distal): 132, T Pop A Prox: 76, B Pop A Dist: 60, M SPRINKLER FITTER Dist: 45, M SULTANA: No significant flow. [...] ULTRASOUND OF THE LOWER EXTREMITIES BILATERALLY LOCATION: [facility] MEDICAL IMAGING DATE: 06/01/2024 INDICATION: [...] Velocities described below. RIGHT LOWER EXTREMITY (cm/s): PRESCHOOL HEAD TEACHER: 88, T PFA: 209, T SFA (proximal): 117, T SFA (mid): 262, B SFA (distal): 73, B Pop A Prox: 35, B Pop A Dist: 45, B SPRINKLER FITTER Dist: 101, B SULTANA: No significant flow. DPA: No significant flow. (M=monophasic, B=biphasic, T=triphasic) LEFT LOWER EXTREMITY (cm/s): PRESCHOOL HEAD TEACHER: 95, T PFA: 205, T SFA (proximal): 149, T SFA (mid): 111, T SFA (distal): 132, T Pop A Prox: 76, B Pop A Dist: 60, M SPRINKLER FITTER Dist: 45, M SULTANA: No significant flow. [...] Result * SCAN-CARDIAC STRIP (06/01/2024 7:51 AM RN RESIDENTIAL) us Scanner OTHER Final Result * VANCOMYCIN (06/01/2024 6:29 AM RN RESIDENTIAL) VANCOMYCIN 24.4 ug/mL 06/01/2024 7:[address] [facility] Comment:No Reference Range D efined. DATE OF LAST DOSE,RANDOM Not Given 06/01/2024 7:[address] [facility] TIME OF LAST DOSE,RANDOM Not Given 06/01/2024 7:[address] [facility] Blood BLOOD SPECIMEN / Unknown Venipuncture / Unknown 06/01/2024 6:29 AM RN RESIDENTIAL 06/01/2024 6:58 AM RN RESIDENTIAL [facility] Ariella Montes De Oca MD CHEMISTRY Final R esult [facility] SENDOUT INTERNAL ZIP [phone] [place] [address] * (ABNORMAL) AEROBIC BACTERIAL CULTURE, STAIN (05/31/2024 4:33 PM RN RESIDENTIAL) CULTURE RESULT(A) 06/03/2024 11:21 AM RN RESIDENTIAL [facility]- [facility] LAB[facility] CULTURE 3+ Staphylococcus aureus 06/03/2024 11:21 AM RN RESIDENTIAL [facility] CULTURE 3+ Achromobacter xylosoxidans 06/03/2024 11:21 AM RN RESIDENTIAL [facility]- N[facility]AL LABORATORY CULTURE 3+ Mixed brigette present 06/03/2024 11:21 AM RN RESIDENTIAL [facility] GRAM STAIN 1+ PMNs 06/03/2024 11:[address] [facility] GRAM STAIN No Epithelial cells 06/03/2024 11:[address] [facility] GRAM STAIN 1+ RBCs 06/03/2024 11:[address] [facility] GRAM STAIN 3+ Gram Positive Cocci 06/03/2024 11:[address] [facility] GRAM STAIN Gram stain performed by [place] 06/03/2024 11:[address] [facility] Other (Other) Non-Blood / Unknown 05/31/2024 4:33 PM RN RESIDENTIAL 05/31/2024 4:42 PM RN RESIDENTIAL Narrative [facility]-CENTRAL LABORATORY - 06/03/2024 11:21 AM RN RESIDENTIAL Mixed Brigette; No beta-Strep, Strep. pneumoniae, or [...] Francisca Roman NP MICROBIOLOGY Final Result [facility]-CENTRAL LABORATORY [address] [place] [address], [facility] SENDOUT INTERNAL ZIP [phone] [place] [address] * XR FOOT 3 VIEWS LEFT (05/31/2024 1:53 PM RN RESIDENTIAL) Anatomical Region Laterality Modality FEET, FOOT L Computed Radiogr aphy 05/31/2024 1:53 PM RN RESIDENTIAL Impressions 05/31/2024 1:59 PM RN RESIDENTIAL Osteopenia. Marked calcified atherosclerosis. Neuropathic changes left midfoot. Findings have progressed since 2011. No evidence of osteomyelitis. Narrative 05/31/2024 1:59 PM RN RESIDENTIAL For Patients: As a result of the [...] progressed since 2011. No evidence ofosteomyelitis. Francisca Abel [facility] Final Result * ECHO TTE COMPLETE WO CONTRAST (05/31/2024 12:49 PM RN RESIDENTIAL) EJECTION FRACTION 40-45% PROSOLV Anatomical Region Laterality Modality Ultrasound 05/31/2024 12:0 6 PM RN RESIDENTIAL Narrative 05/31/2024 1:23 [place] [address] Main: [email or web address]an[facility] Echo Report SHERYL SERRANO ID: [id number] Age: 84 : 1940 Ordering Provider: EMILY MONTES DE OCA Exam Date: 05/31/2024 12:06 Gender: M Assistant Drafter: SHIVAM Height: 72 in BSA: 2.06 m [...] ZScore: -0.31 Leidy Stephenson MD (Electronically Signed) [facility] Accredited Site Final Date: 31 May 2024 13:23 ICD-10 Codes: I24.8 Procedure Note Leidy Stephenson MD - 05/31/2024 [place] [address] Main: [email or web address] Tran[facility]hor[facility] Echo Report SHERYL SERRANO Makayla ID: [id number] Age: 84 : 1940 Ordering Provider:EMILY MONTES DE OCA Exam Date: 05/31/2024 12:06 Gender: M Assistant Drafter: SHIVAM Height: 72 in BSA: 2.06 m [...] ZScore: -0.31 Leidy Stephenson MD (Electronically Signed) [facility] Accredited Site Final Date: 31 May 2024 13:23 ICD-10 Codes: I24.8 us Anca Ariella Montes De Oca MD ECHO ORD Final R esult * SCAN-CARDIAC STRIP (05/31/2024 7:47 AM RN RESIDENTIAL) us Scanner OTHER Final Result * HEMOGLOBIN A1C (05/31/2024 7:21 AM RN RESIDENTIAL) HEMOGLOBIN A1C SCREENING 4.9 <=6.4 % 05/31/2024 1:[address] [facility] Blood BLOOD SPECIMEN / Unknown Butterfly / Unknown 05/31/2024 7:21 AM RN RESIDENTIAL 05/31/2024 7:44 AM RN RESIDENTIAL Narrative [facility] - 05/31/2024 1:53 PM RN RESIDENTIAL (<5.7%) Normal (5.7% to 6.4%) Indicates prediabetes (>=6.5%) Confirms diabetes Falsely low levels may be seen with: Recent Transfusion, Recent Significant Blood Loss, Hemolytic Diseases, or Falsely elevated levels may be seen with: Untreated Anemias, Splenectomy us Francisca Roman NP CHEMISTRY Final Result Performing Organization Address [facility] Co de Phone Number [facility] SENDOUT INTERNAL ZIP [phone] [place] [id number] * MAGNESIUM (05/31/2024 7:21 AM RN RESIDENTIAL) Pathologist [facility] MAGNESIUM 2.0 1.6 - 2.4 mg/dL 05/31/2024 10:[address] [facility] Blood BLOOD SPECIMEN / Unknown Butterfly / Unknown 05/31/2024 7:21 AM RN RESIDENTIAL 05/31/2024 7:44 AM RN RESIDENTIAL us Emily Montes De Oca MD CHEMISTRY Final R esult Performing Organization Address [facility]/ZIP Co de Phone Number [facility] SENDOUT INTERNAL ZIP [address] [place] [address] * SCAN-CARDIAC STRIP (05/30/2024 4:52 PM RN RESIDENTIAL) us Scanner OTHER Final Result * SCAN CORRESP-IMAGING (05/30/2024 12:50 PM RN RESIDENTIAL) Anatomical Region Laterality Modality Other Narrative 05/30/2024 12:50 PM RN RESIDENTIAL Ordered by an unspecified provider. us Other Clinical Staff OTHER Final Resul t * SCAN CORRESP-EKG RESULTS (05/30/2024 12:28 PM RN RESIDENTIAL) Narrative 05/30/2024 12:28 PM RN RESIDENTIAL Ordered by an unspecified provider. us Other Clinical Staff OTHER Final Resul t * SCAN-CARDIAC STRIP (05/30/2024 7:29 AM RN RESIDENTIAL) us Scanner OTHER Final Result * SCAN-CARDIAC STRIP (05/29/2024 8:32 AM RN RESIDENTIAL) us Scanner OTHER Final Result * (ABNORMAL) PRO-BNP (05/29/2024 5:14 AM RN RESIDENTIAL) Only the most recent of2 resultswithin the time period is included. PRO-BNP >70,000(H) <450 pg/mL 05/29/2024 12:[address] [facility] Blood BLOOD SPECIMEN / Unknown Butterfly / Unknown 05/29/2024 5:14 AM RN RESIDENTIAL 05/29/2024 5:25 AM RN RESIDENTIAL Narrative [facility] - 05/29/2024 12:54 PM RN RESIDENTIAL The following cut-points have been suggested for [...] for acute congestive heart failure. us Luís oPrter MD SEND OUTS nal Result [facility] SENDOUT INTERNAL ZIP [phone] [place] [address] * SCAN-CARDIAC STRIP (05/28/2024 11:31 AM RN RESIDENTIAL) us Scanner OTHER Final Result * (ABNORMAL) ELECTROLYTE PANEL (05/28/2024 5:02 AM RN RESIDENTIAL) SODIUM 135(L) 136 - 145 mmol/L 05/28/2024 6:[address] [facility] POTASSIUM 4.0 3.5 - 5.1 mmol/L 05/28/2024 6:[address] [facility] CHLORIDE 97(L) 98 - 107 mmol/L 05/28/2024 6:[address] [facility] CO2,TOTAL 29 22 - 29 mmol/L 05/28/2024 6:[address] [facility] ANION GAP 9 5 - 18 05/28/2024 6:[address] [facility] Blood BLOOD SPECIMEN / Unknown Venipuncture / Unknown 05/28/2024 5:02 AM RN RESIDENTIAL 05/28/2024 5:30 AM RN RESIDENTIAL Ezekiel Soto DO CHEMISTRY Aleah l Result [facility] SENDOUT INTERNAL ZIP [phone] [place] [address] * XR CHEST 1 VIEW PORTABLE (05/27/2024 4:40 PM RN RESIDENTIAL) Anatomical Region Laterality Modality HEART, THORAX, CHEST Computed Ra diography 05/27/2024 4:40 PM RN RESIDENTIAL Impressions 05/27/2024 4:55 PM RN RESIDENTIAL Sternotomy. Right pacemaker. Small left effusion with atelectasis. No right effusion. Bilateral calcified granulomas. Right lung clear. Calcified mediastinal and bilateral hilar lymph nodes. Narrative 05/27/2024 4:55 PM RN RESIDENTIAL For Patients: As a result of the Century Cures Act, medical imaging exams and procedure reports are released immediately into your electronic medical record. You may view this report before your referring provider. If you have questions, please contact your health care provider. EXAM: XR CHEST 1 VIEW PORTABLE LOCATION: [facility] MEDICAL IMAGING DATE: 05/27/2024 INDICATION: [...] EXAM: XR CHEST 1 VIEW PORTABLE LOCATION: [facility] MEDICAL IMAGING DATE: 05/27/2024 INDICATION: SOB Other re-assess pleural effusion COMPARISON: 02/26/23 xray, 11/18/19 xray IMPRESSION: Sternotomy. Right pacemaker. Small left effusion with atelectasis. Noright effusion. Bilateral calcified granulomas. Right lung clear.Calcified mediastinal and bilateral hilar lymph nodes. us Ezekiel Soto DO GENERAL IMAGING Aleah l Result * SCAN-CARDIAC STRIP (05/27/2024 11:15 AM RN RESIDENTIAL) us Scanner OTHER Final Result * SCAN-CARDIAC STRIP (05/26/2024 10:29 AM RN RESIDENTIAL) us Scanner OTHER Final Result * SCAN-CARDIAC STRIP (05/25/2024 9:28 AM RN RESIDENTIAL) us Scanner OTHER Final Result * (ABNORMAL) TROPONIN T (HS) ONE TIME (05/25/2024 7:26 AM RN RESIDENTIAL) TROPONIN T HS 248(H) 6-15 ng/L ng/L 05/25/2024 8:[address] [facility] Blood BLOOD SPECIMEN / Unknown Venipuncture / Unknown 05/25/2024 7:26 AM RN RESIDENTIAL 05/25/2024 8:01 AM RN RESIDENTIAL us Sheyla Chaudhry MD CHEMISTRY Final Re sult [facility] SENDOUT INTERNAL ZIP [phone] [place] [address] * SCAN-CARDIAC STRIP (05/25/2024 5:46 AM RN RESIDENTIAL) us Scanner OTHER Final Result * (ABNORMAL) TROPONIN T (HS) ACUTE W/2HR REFLEX (05/25/2024 5:37 AM RN RESIDENTIAL) TROPONIN T HS 256(H) 6-15 ng/L ng/L 05/25/2024 6:[address] [facility] Blood BLOOD SPECIMEN / Unknown Venipuncture / Unknown 05/25/2024 5:37 AM RN RESIDENTIAL 05/25/2024 5:38 AM RN RESIDENTIAL Narrative [facility] - 05/25/2024 6:17 AM RN RESIDENTIAL hs-cTnT (Elecsys Troponin T Gen 5) concentration [...] Sheyla Chaudhry MD CHEMISTRY Final Re sult [facility] SENDOUT INTERNAL ZIP [phone] [place] [address] * PROCALCITONIN (05/25/2024 5:37 AM RN RESIDENTIAL) PROCALCITONIN 0.47 ng/ml 05/25/2024 6:[address] [facility] Blood BLOOD SPECIMEN / Unknown Venipuncture / Unknown 05/25/2024 5:37 AM RN RESIDENTIAL 05/25/2024 5:38 AM RN RESIDENTIAL Narrative [facility] - 05/25/2024 6:18 AM RN RESIDENTIAL Procalcitonin for initial assessment of Lower Respiratory [...] Chaudhry MD SEND OUTS Final Re sult [facility] SENDOUT INTERNAL ZIP [id number] [address] [place] [address] from Last 3 Months Insurance MEDICARE RR PART A HB ONLY [facility] MR[facility] [id number] [place] [id number] [facility] PPS [address] [place] [id number] Advance Directives Documents on File Type Date Recorded Patient Toe Closing Machine Tender Expl anation Power of Gas And Oil Checker 06/05/2019 06/05/2019 Healthcare Directive 06/05/2019 019 Power of Gas And Oil Checker 07/19/2006 * Full Code (Latest Code Status [...] 11:52 AM 11/02/2018 9:20 PM Care Teams Social Insurance Administrator Relationship Specialty Start Date End Date Anna Marie [place] [address] PCP - General Family Practice 10/06/22 [facility], [address], [place] [address] 07/06/24
--- OUTSIDE RECORDS SUMMARY | 2024-07-06 14:37 | XMS_ITS | Clinical Summary ---
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 06/29/2024 Orders Only [facility] [address] [place] [phone] Darren Youssef MD 06/22/2024 Orders Only [facility] [address] [place] [phone] Darren Youssef MD 06/20/2024 Orders Only [facility] [address] [place] [phone] Darren Youssef MD 06/20/2024 Treatment [facility] [address] [place] [address] Darren Youssef MD 06/20/2024 TCM in Dialysis Clinic [facility] [address] [place] [address] Darren Youssef MD 06/15/2024 Orders Only [facility] [address] [place] [phone] Darren Youssef MD 06/10/2024 Orders Only [facility] [address] [place] [phone] Darren Youssef MD 06/09/2024 Telephone [facility] [address] [place] [phone] Nehal Meredith, FRANCIA [facility] Discharge ([place]) 05/18/2024 Orders Only [facility] [address] [place] [phone] Darren Youssef MD 05/11/2024 Orders Only [facility] [address] [place] [phone] Darren Youssef MD 05/09/2024 Treatment [facility] [address] [place] [address] 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, 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 05/04/2024 Orders Only [facility] [address] [place] [phone] Darren Youssef MD 04/27/2024 Orders Only [facility] [address] [place] [phone] Darren Youssef MD 04/22/2024 Treatment [facility] [place] [address] [place] [address] Darren Youssef MD 04/20/2024 Orders Only [facility] [address] [place] [address] Darren Youssef MD 04/13/2024 Orders Only [facility] [address] [place] [address] Darren Youssef MD 04/13/2024 Treatment [facility] [address] [place] [address] 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 Hemoglobin 8.2(L) 14.0 - 18.0 g/dL [facility] Hemoglobin x 3 24.6(L) 42.0 - 54.0 % [facility] 06/29/2024 06/30/2024 2:1 7 AM CORN HUSKER Narrative SPECTRAE - 06/30/2024 Unless otherwise specified, test(s) performed at: [facility], [address] [place] [address], [place] [address] HVAC OPERATIONS TECHNICIAN: Rojas Kirkland M.D., Ph.D For any questions, please call customer service at FREQUENCY:OTHER Resulting Agency Comment Specimen source: Blood us Darren Youssef MD LAB BLOOD ORDERABLES Final Re sult [facility] See order comments or contact performing lab Unknown, [place] * HD KINETICS (06/20/2024) Only the most recent of4 resultswithin the time period is included. % Urea Reduction 71 65 - 80 % [facility] 06/20/2024 06/21/2024 10: 11 AM CORN HUSKER Narrative SPECTRAE - 06/21/2024 Unless otherwise specified, test(s) performed at: [facility], [address] [place] [address], [place] [address] HVAC OPERATIONS TECHNICIAN: Rojas Kirkland M.D., Ph.D For any questions, please call customer service at FREQUENCY:OTHER Resulting Agency Comment Specimen source: Plasma Darren Youssef MD LAB BLOOD ORDERABLES Final Re sult Performing Organization Address [facility] de Phone Number [facility] See order comments or contact performing lab Unknown, [place] * (ABNORMAL) POST CHEMISTRY (06/20/2024) Only the most recent of4 resultswithin the time period is included. BUN Post Dialysis 22(H) 6 - 19 mg/dL [facility] 06/20/2024 06/21/2024 10: 11 AM CORN HUSKER Narrative SPECTRAE - 06/21/2024 Unless otherwise specified, test(s) performed at: [facility], [address] [place] [address], [place] [address] HVAC OPERATIONS TECHNICIAN: Rojas Kirkland M.D., Ph.D For any questions, please call customer service at FREQUENCY:OTHER Resulting Agency Comment Specimen source: Plasma Darren Youssef MD LAB BLOOD ORDERABLES Final Re sult Performing Organization Address [facility]/ZIP Co de Phone Number [facility] See order comments or contact performing lab Unknown, [place] * (ABNORMAL) [facility] (06/20/2024) Only the most recent of5 resultswithin the time period is included. BUN 76(H) 6 - 19 mg/dL [facility] 06/20/2024 06/21/2024 1:4 4 PM CORN HUSKER Narrative [facility] - 06/21/2024 Unless otherwise specified, test(s) performed at: [facility], [address] [place] [address], [place] [address] HVAC OPERATIONS TECHNICIAN: Rojas Kirkland M.D., Ph.D For any questions, please call customer service at FREQUENCY:OTHER Resulting Agency Comment Specimen source: Serum Darren Youssef MD LAB BLOOD ORDERABLES Final Re sult Performing Organization Address City/[facility]/ZIP Co de Phone Number [facility] See order comments or contact performing lab Unknown, [place] * [facility] Results (06/20/2024) Only the most recent of4 resultswithin the time period is included. Pathologist [facility] spKt/V Got 1.43 [facility] PCR 75.47 [facility] spKt/V (Daugirdas II) 1.43 [facility] eKt/V ([place]) 1.23 [facility] nPCR_HD 1.04 [facility] eKt/V Gotch 1.21 [facility] [place] eNPCR 0.96 [facility] eKdrt/V 1.21 [facility] WSTDKT/V 2.4 [facility] 06/20/2024 06/20/2024 [facility] Ordering Provider LAB BLOOD ORDERABLES Final Result [facility] Contact Performing lab Unknown, [place] * IMMUNO CHEMISTRY (06/15/2024) Only the most recent of4 resultswithin the time period is included. Pathologist [facility] Hep B Surface Ag Negative Negative [facility] 06/15/2024 06/16/2024 10: 07 AM CORN HUSKER Narrative [facility] - 06/16/2024 Unless otherwise specified, test(s) performed at: [facility], [address] [place] [address], [place] [address] HVAC OPERATIONS TECHNICIAN: Rojas Kirkland M.D., Ph.D For any questions, please call customer service at FREQUENCY:MONTHLY Resulting Agency Comment Specimen source: Plasma Darren Youssef MD LAB BLOOD ORDERABLES Final Re sult Performing Organization Address [facility] Co de Phone Number [employer] [facility] See order comments or contact performing lab Unknown, [place] * SPECIAL CHEMISTRY (04/13/2024) Pathologist [facility] Vitamin D, 25-OH, Total 56.9 30.0 - 100.0 ng/mL [facility] Comment: Please Note: Effective June 16, 2021, the methodology for this test has changed to the SIEMENS ATELLICA method 04/13/2024 04/14/2024 5:5 9 PM CORN HUSKER Narrative Resulting Agency Comment Specimen source: Serum Darren Youssef MD LAB BLOOD BANK TEST ORDERABLE S Final Result Performing Organization Address [facility] de Phone Number [employer] [facility] See order comments or contact performing lab Unknown, [place] * TRACE ELEMENTS (04/13/2024) [facility] Aluminum 8 0 - 10 mcg/L [facility] Comment: This test was developed and its performance characteristics determined by [facility]. It has not been cleared or approved by the FDA. The laboratory is regulated under CLIA as qualified to perform high complexity testing. This test is used for clinical purposes. It should not be regarded as investigational or for research. 04/13/2024 04/14/2024 8:1 8 AM CORN HUSKER Narrative [facility] - 04/15/2024 Unless otherwise specified, test(s) performed at: [facility], [address] [place] [address], [place] [address] HVAC OPERATIONS TECHNICIAN: Rojas Kirkland M.D., Ph.D For any questions, please call customer service at FREQUENCY:MONTHLY Resulting Agency Comment Specimen source: Serum Darren Youssef MD LAB BLOOD ORDERABLES Final Re sult Performing Organization Address [facility] de Phone Number [employer] [facility] See order comments or contact performing lab Unknown, [place] * (ABNORMAL) Hemoglobin A1c (09/24/2020 11:00 AM CDT) [facility] Hemoglobin A1C 5.8(H) 0.0 - 5.6 %A1c [facility] 09/24/2020 11:0 0 AM CDT 09/25/2020 12:06 PM CDT us Checo Sky MD LAB BLOOD ORDERABLES Edited Resu lt - Final ADIN RAYO [facility] from Last 3 Months or Most Recently Relevant to Health Maintenance Insurance [facility] [address]
--- OUTSIDE RECORDS SUMMARY | 2024-07-06 14:37 | XMS_ITS | Continuity of Care Document ---
Author Name [facility] Organization [facility] Care Team Providers Care Director Of Integrated Marketing Name Role Phone [facility] Unavailable Unavailable Problems Combined list of problems from Department of Defense and Veterans 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 It does not include entries that were removed or entered in error. Problem Status Onset Date Problem Type Date of Resolution Comments Source Adenoma of large intestine Active Condition Jan 17, 2005 Entered By: TOMMY SARMIENTO Comment: colonoscopy and polypectomy 12/10, tubular adenoma at [facility] Cataract, Senile, Unsp Active Condition [facility] Chronic cough Active Condition [facility] Chronic obstructive lung disease Active Condition [facility] Chronic rhinitis Active Condition [facility] Coronary arteriosclerosis Active Condition Nov 10 7 Entered By: LIZZETTE WEI Comment: s/p [id number] at [facility] in 07/15 [facility] Diabetes mellitus Active Condition [facility] Diabetic neuropathy Active Condition [facility] Diabetic renal disease Active Condition Dec 02, 2018 Entered By: CARLOS DALTON Comment: 10/2018: started hemodialysis @ [facility] in [facility] 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 [facility] Dyslipidemia Active Condition [facility] End-stage renal disease Active Condition [facility] Essential hypertension Active Condition [facility] Exposure to potentially hazardous substance Active Condition Dec 18, 2022 Entered By: CORRINE MATHEWS Comment: Asbestos [facility] Ganglion of wrist Active Condition [facility] Gastroesophageal reflux disease without esophagitis Active Condition [facility] Hemorrhoid Active Condition [facility] Hyperparathyroidism due to renal insufficiency Active Condition [facility] Hypothyroidism Active Condition [facility] Incontinence of feces Active Condition [facility] Indwelling catheter inserted Active Condition [facility] Obstructive Sleep Apnea of Adult (SCT [id number]) Active Condition October 28, 2022 Entered By: KINGS ROCHA Comment: APAP: 10-20, Ramp: 5x10 min, [place] [facility] Oropharyngeal dysphagia Active Condition Dec 14, 2022 Entered By: CORRINE MATHEWS Comment: 2013 MANAGED SERVICES CONSULTANT eval in chart [facility] Psoriasis Nos 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 Active Diagnosis [facility] Diagnosis: ICD-10-CM R26.89 Other abnormalities of gait and mobility Active Diagnosis [facility] Diagnosis: ICD-10-CM M79.646 Pain in unspecified finger(s) Active Diagnosis [facility] Diagnosis: ICD-10-CM H90.3 Sensorineural hearing loss, bilateral Active Diagnosis [facility] Diagnosis: ICD-10-CM Z01.118 Encntr for exam of ears and hearing w oth abnormal findings [facility] Diagnosis: ICD-10-CM H04.129 Dry eye syndrome of unspecified lacrimal gland Active Diagnosis [facility] Diagnosis: ICD-10-CM Z46.1 Encounter for fitting and adjustment of hearing aid Active Diagnosis [facility] Diagnosis: ICD-10-CM N18.6 End stage renal disease Active Diagnosis [facility] Diagnosis: ICD-10-CM R26.9 Unspecified abnormalities of gait and mobility Active Diagnosis [facility] Diagnosis: ICD-10-CM J44.9 Chronic obstructive pulmonary disease, unspecified Active Diagnosis [facility] Diagnosis: ICD-10-CM Z65.8 Oth problems related to psychosocial circumstances Active Diagnosis [facility] Medications Combined list of outpatient medications [...] RELIEF). RESPIR ATORY (INHAL ATION) ACTIVE 11/09/2024 [id number] 5 CASANDRA DALTON 2023 2 [facility] ALBUTEROL 90MCG/ACTUA T (CFC-F) INHL,ORAL,8 .5GM DOSE COUNTER INHALE 2 PUFFS BY INHALATI ON EVERY 4 HOURS NEEDED FOR BREATHIN G SHAKE WELL (FOR IMMEDIAT E RELIEF). RESPIR ATORY (INHAL ATION) DISCONT INUED 08/21/2023 [id number] 4 CASANDRA DALTON 2022 2 [facility] AZELASTINE HCL 137MCG/SPRA Y INHL,NASAL, 30ML SPRAY 1 PUFF IN EACH NOSTRIL TWICE A DAY FOR NASAL SYMPTOMS NASAL ACTIVE 12/31/2024 [id number] 5 RODRÍGUEZ MATHEWS 2023 2 [facility] CALCIUM CARBONATE TAB,CHEWABL E CHEW ONE TABLET BY MOUTH FOUR TIMES A DAY NEEDED ORAL ACTIVE RODRÍGUEZ MATHEWS 2022 [facility] CLOPIDOGREL BISULFATE 75MG TAB TAKE ONE TABLET BY MOUTH EVERY DAY TO PREVENT BLOOD CLOTS LENGTH OF TREATMEN T: MARIANA TE, CO-MANAG ED CARE PRESCRIP TION ORAL ACTIVE 06/16/2025 [id number] 5 RODRÍGUEZ MATHEWS 2024 90 [facility] COENZYME Q10 CAP/TAB TAKE ONE TABLET BY MOUTH EVERY DAY ORAL ACTIVE CASANDRA DALTON 2012 [facility] CYCLOSPORIN E 0.05% (PF) EMULSION,OP H,0.4ML INSTILL 1 DROP BOTH EYES TWICE A DAY OPHTHA LMIC ACTIVE 08/10/2024 [id number] FB-PURFEE RST,MATHEW OD 2023 60 [place] [facility] DEXTROMETHO RPHAN HBR 10MG/GUAIFE NESIN 100MG/5ML (AF & SF) LIQUID TAKE 1 TEASPOON FUL BY MOUTH EVERY 4 HOURS NEEDED FOR COUGH AND CONGESTI ON ORAL ACTIVE 07/01/2025 [id number] 5 RODRÍGUEZ MATHEWS 2024 120 [facility] DEXTROMETHO RPHAN HBR 10MG/GUAIFE NESIN 100MG/5ML (AF & SF) LIQUID TAKE 1 TEASPOON FUL BY MOUTH EVERY 4 HOURS NEEDED FOR COUGH AND CONGESTI ON ORAL DISCONT INUED 03/09/2024 [id number] 4 RODRÍGUEZ MATHEWS 2022 120 [facility] DIALYVITE TAB TAKE 1 TABLET BY MOUTH EVERY DAY ORAL DISCONT INUED 09/10/2023 [id number] 4 RODRÍGUEZ MATHEWS 2022 100 [facility] DIALYVITE TAB TAKE 1 TABLET BY MOUTH EVERY DAY ORAL 07/02/2024 [id number] 5 RODRÍGUEZ MTAHEWS 2023 100 [facility] FLUTICASONE 250MCG/SALM ETEROL 50MCG INHL,ORAL,D ISKUS,60 INHALE 1 PUFF BY INHALATI ON TWICE A DAY TO PREVENT TROUBLE BREATHIN G -RINSE MOUTH AFTER USING RESPIR ATORY (INHAL ATION) ACTIVE 12/28/2024 [id number] 4 RODRÍGUEZ MATHEWS 2023 3 [facility] FLUTICASONE 250MCG/SALM ETEROL 50MCG INHL,ORAL,D ISKUS,60 INHALE 1 PUFF BY INHALATI ON TWICE A DAY TO PREVENT TROUBLE BREATHIN G -RINSE MOUTH AFTER USING RESPIR ATORY (INHAL ATION) DISCONT INUED 09/23/2023 [id number] 4 RODRÍGUEZ MATHEWS 2022 3 [facility] INSULIN,ASP ART,HUMAN (EQV-NOVOLO G) 100 UNIT/ML,FLE XPEN,3ML INJECT 5 UNITS UNDER THE SKIN BEFORE MEALS FOR DIABETES SUBCUT ANEOUS ACTIVE 10/26/2024 [id number] 4 RODRÍGUEZ MATHEWS 2023 5 [place] [facility] INSULIN,ASP ART,HUMAN (EQV-NOVOLO G) 100 UNIT/ML,FLE XPEN,3ML INJECT 5 UNITS UNDER THE SKIN TWICE A DAY TO DECREASE BLOOD SUGAR-- INJECT IMMEDIAT LINDA BEFORE MEAL (PEN FILL APPROVED ) REPLACES REGULAR INSULIN PEN SUBCUT ANEOUS 05/13/2023 [id number] RODRÍGUEZ MATHEWS 2021 5 [facility] INSULIN,GLA RGINE,HUMAN 100 UNIT/ML INJ,SOLOSTA R,3ML INJECT 18 UNITS UNDER THE SKIN EVERY DAY FOR DIABETES DISCAR D PEN 28 DAYS AFTER INITIAL USE SUBCUT ANEOUS DISCONT INUED (EDIT) 06/06/2024 [id number] 4 RODRÍGUEZ MATHEWS 2023 5 [facility] INSULIN,GLA RGINE-YFGN 100UNIT/ML INJ PEN,3ML INJECT 18 UNITS UNDER THE SKIN EVERY DAY FOR DIABETES DISCAR D PEN 28 DAYS AFTER INITIAL USE SUBCUT ANEOUS 06/09/2024 [id number] 4 RODRÍGUEZ MATHEWS 2023 5 [facility] LEVOTHYROXI NE NA 200MCG TAB (SYNTHROID) TAKE ONE TABLET BY MOUTH EVERY DAY FOR THYROID ORAL ACTIVE 12/28/2024 [id number] 5 RODRÍGUEZ MATHEWS 2023 90 [place] [facility] LEVOTHYROXI NE NA 200MCG TAB (SYNTHROID) TAKE ONE TABLET BY MOUTH EVERY DAY FOR THYROID ORAL DISCONT INUED 01/13/2024 [id number] RODRÍGUEZ MATHEWS 2022 90 [place] [facility] LORATADINE 10MG TAB TAKE ONE TABLET BY MOUTH EVERY DAY NEEDED ORAL ACTIVE RODRÍGUEZ MATHEWS 2022 [place] [facility] MARINE LIPID (FISH OIL) CAP,ORAL TAKE 1200MG BY MOUTH EVERY DAY ORAL ACTIVE CASANDRA DALTON 2010 [facility] MIDODRINE HCL 10MG TAB TAKE ONE TABLET BY MOUTH DIRECTED - TAKE 1 TABLET BEFORE DIALYSIS AND 1 TABLET AFTER DIALYSIS , NEEDED FOR HYPOTENS ION OTHER DAYS ORAL ACTIVE 06/21/2025 [id number] 5 Stefany TRAN 2024 90 [facility] MONTELUKAST NA 10MG TAB TAKE ONE TABLET BY MOUTH EVERY DAY ORAL ACTIVE 06/21/2025 [id number] 5 CASANDRA DALTON 2024 90 [place] [facility] MONTELUKAST NA 10MG TAB TAKE ONE TABLET BY MOUTH EVERY DAY ORAL DISCONT INUED 05/08/2024 [id number] 4 CASANDRA DALTON 2022 90 [facility] NITROGLYCER IN 0.4MG TAB,SUBLING UAL DISSOLVE ONE TABLET UNDER THE TONGUE PRN SUBLIN GUAL ACTIVE CASANDRA DALTON 2010 [facility] PANTOPRAZOL E NA 40MG TAB,EC TAKE ONE TABLET BY MOUTH EVERY DAY ONE-HALF HOUR BEFORE EATING. ORAL ACTIVE 06/21/2025 [id number] 5 CSAANDRA DALTON 2024 90 [facility] PANTOPRAZOL E NA 40MG TAB,EC TAKE ONE TABLET BY MOUTH EVERY DAY ONE-HALF HOUR BEFORE EATING. ORAL DISCONT INUED 07/02/2024 [id number] 4 CASANDRA DALTON 2023 90 [facility] PRAVASTATIN NA 40MG TAB TAKE ONE TABLET BY MOUTH AT BEDTIME FOR CHOLESTE ROL ORAL DISCONT INUED 06/05/2024 [id number] 3 CASANDRA DALTON 2022 90 [facility] PRAVASTATIN NA 40MG TAB TAKE ONE TABLET BY MOUTH AT BEDTIME FOR CHOLESTE ROL ORAL 06/06/2024 [id number] 4 RODRÍGUEZ MATHEWS 2023 90 [facility] SULFAMETHOX AZOLE 800MG/TRIME THOPRIM 160MG TAB TAKE 1 TABLET BY MOUTH TWICE A DAY ORAL 01/30/2024 [id number] 4 RODRÍGUEZ MATHEWS 2023 20 [facility] TIOTROPIUM 2.5MCG/ACTU AT INHL,ORAL,6 0D,4GM INHALE TWO PUFFS BY INHALATI ON EVERY DAY FOR ASTHMA RESPIR ATORY (INHAL ATION) DISCONT INUED 04/01/2025 [id number] 4 [place], [place] NA 2023 1 [facility] TIOTROPIUM 2.5MCG/ACTU AT INHL,ORAL,6 0D,4GM INHALE TWO PUFFS BY INHALATI ON EVERY DAY FOR ASTHMA RESPIR ATORY (INHAL ATION) DISCONT INUED 08/26/2024 [id number] 4 ZULETA,IA NA 2023 1 [facility] TIOTROPIUM 2.5MCG/ACTU AT INHL,ORAL,6 0D,4GM INHALE TWO PUFFS BY INHALATI ON EVERY DAY FOR ASTHMA RESPIR ATORY (INHAL ATION) DISCONT INUED 10/29/2023 [id number] 4 [place], [place] NA 2022 1 [facility] TIOTROPIUM 2.5MCG/ACTU AT INHL,ORAL,6 0D,4GM INHALE TWO PUFFS BY INHALATI ON EVERY DAY FOR ASTHMA RESPIR ATORY (INHAL ATION) 06/29/2024 [id number] 5 RODRÍGUEZ MATHEWS 2024 3 [facility] VANICREAM APPLY THIN LAYER TOPICALL Y EVERY DAY FOR DRY SKIN TOPICA L ACTIVE 12/28/2024 [id number] 5 RODRÍGUEZ MATHEWS 2023 1362 [facility] VANICREAM APPLY THIN LAYER TOPICALL Y EVERY DAY FOR DRY SKIN TOPICA L DISCONT INUED 12/19/2023 [id number] 4 RODRÍGUEZ MATHEWS 2022 1362 [facility] VITAMIN E 400UNT CAP TAKE 1 CAPSULE BY MOUTH EVERY DAY ORAL ACTIVE ME VELMA DAI 2013 [facility] ZINC SULFATE TAB TAKE 50MG BY MOUTH EVERY DAY ORAL ACTIVE [facility] 2014 [facility] Allergies, Adverse Reactions, Alerts Combined list of allergies from Department of [facility] and Veterans 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 It does not [...] reactions to drug (finding) Cramp active 0 [facility] LISINOPRIL Propensity to adverse reactions to drug (finding) Abdominal discomfort active 7 [facility] METOCLOPRAMI DE Propensity to adverse reactions to drug (finding) Gynecomasti a active 0 [facility] OMEPRAZOLE Propensity to adverse reactions to drug (finding) Diarrhea active 0 [facility] SIMVASTATIN Propensity to adverse reactions to drug (finding) MUSLCE CRAMPS active 4 [facility] Immunizations Combined list of available immunizations from the Department of [facility] and [facility] 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 Immunization Series Date Given Administered By Site Reaction Lot Number CVX Code Drug Lure Maker Status Comments Source INFLUENZA, RECOMBINANT, QUADRIVALENT, PF 2022 185 complet ed [facility] TDAP 2022 [facility] RIGHT DELTO ID [id number] 115 complet ed [facility] INFLUENZA, UNSPECIFIED FORMULATION 2021 88 complet ed [facility] COVID-19 (PFIZER), MRNA, LNP-S, PF, 30 MCG/0.3 ML DOSE, ALY-SUCROSE (AGES 12+ YEARS) 2021 217 complet ed [facility] COVID-19 (PFIZER), MRNA, LNP-S, PF, 30 MCG/0.3 ML DOSE 2020 208 complet ed [facility] INFLUENZA, UNSPECIFIED FORMULATION 2020 88 complet ed [facility] ZOSTER RECOMBINANT 2 2020 187 complet ed [facility] COVID-19 (PFIZER), MRNA, LNP-S, PF, 30 MCG/0.3 ML DOSE 2020 208 complet ed [facility] COVID-19 (PFIZER), MRNA, LNP-S, PF, 30 MCG/0.3 ML DOSE 2020 208 complet ed [facility] ZOSTER RECOMBINANT 1 2019 187 complet ed [facility] INFLUENZA, SEASONAL, INJECTABLE, PRESERVATIVE FREE 2019 140 complet ed [facility] INFLUENZA, UNSPECIFIED FORMULATION 2018 88 complet ed [facility] INFLUENZA, SEASONAL, INJECTABLE, PRESERVATIVE FREE 2017 140 complet ed [facility] INFLUENZA, HIGH DOSE SEASONAL 2016 135 complet ed [facility] INFLUENZA, HIGH-DOSE, TRIVALENT, PF 2015 135 complet ed [facility] INFLUENZA, HIGH DOSE SEASONAL 2014 135 complet ed [facility] PNEUMOCOCCAL CONJUGATE PCV 13 2014 133 complet ed [facility] [id number] 08/22 [facility] INFLUENZA, UNSPECIFIED FORMULATION 2013 88 complet ed [facility] INFLUENZA, UNSPECIFIED FORMULATION 2013 88 complet ed [facility] ZOSTER LIVE 2013 121 complet ed [facility] INFLUENZA, UNSPECIFIED FORMULATION 2012 88 complet ed [facility] PNEUMOCOCCAL, UNSPECIFIED FORMULATION 2012 109 complet ed [employer], [id number], [facility] TDAP 2012 115 complet ed [facility] TDAP 2012 115 complet ed [facility] ZOSTER LIVE 2012 121 complet ed [employer] Lot#[id number] 14 [facility] TDAP 2012 115 complet ed [facility] INFLUENZA, UNSPECIFIED FORMULATION 2011 88 complet ed [facility] INFLUENZA, UNSPECIFIED FORMULATION 2010 88 complet ed [facility] INFLUENZA, UNSPECIFIED FORMULATION 2009 88 complet ed [facility] INFLUENZA, UNSPECIFIED FORMULATION 2008 88 complet ed [facility] TD(ADULT) UNSPECIFIED FORMULATION 2007 139 complet ed [facility] INFLUENZA, SPLIT VIRUS, TRIVALENT, PRESERVATIVE 2007 141 complet ed [facility] TD (ADULT), 5 LF TETANUS TOXOID, PRESERVATIVE FREE, ADSORBED 2007 113 complet ed [facility] INFLUENZA (HISTORICAL) 2006 88 complet ed [facility] INFLUENZA (HISTORICAL) 2005 88 complet ed [facility] INFLUENZA, UNSPECIFIED FORMULATION 2004 88 complet ed [facility] INFLUENZA, UNSPECIFIED FORMULATION 2003 88 complet ed [facility] PNEUMOCOCCAL, UNSPECIFIED FORMULATION 2003 109 complet ed [facility] TD(ADULT) UNSPECIFIED FORMULATION 2003 139 complet ed due next year [facility] INFLUENZA, SPLIT VIRUS, TRIVALENT, PRESERVATIVE 2002 141 complet ed [facility] INFLUENZA (HISTORICAL) 2002 88 complet ed pt states he had a Influenza vaccinati on this yr [facility] TD(ADULT) UNSPECIFIED FORMULATION 1994 139 complet ed [facility] Vital Signs Combined list of inpatient and outpatient Vital Signs from Department of Defense and Veterans Affairs, ranging from 12 months to all on record, depending upon the facility. Vital Sign Value Date Comments Source SYSTOLIC BLOOD PRESSURE 103 12/31/2023 13:26:57 [facility] DIASTOLIC BLOOD PRESSURE 55 12/31/2023 13:26:57 [facility] PULSE OXIMETRY 95 12/31/2023 13:26:57 M [facility] WEIGHT 200.2 12/31/2023 13:26:57 [facility] BMI 27kg/m2 12/31/2023 13:26:57 [facility] PAIN 6 12/31/2023 13:26:57 [facility] TEMPERATURE 98.4 12/31/2023 13:26:57 [facility] PULSE 73 12/31/2023 13:26:57 [facility] RESPIRATION 18 12/31/2023 13:26:57 [facility] Encounters Combined list of: 1) Encounters from Department of [facility] Affairs facilities going back up to thelast 18 months. 2) Encounters from the Department of [facility] facilities going back up to 280 months. Location Location Details Encounter Type Encounter Number Reason For Visit Attending Provider ADM Date DC Date Status Disposition Source [place] [facility] Outpatient Encounter [id number] [facility]07 [facility] [place] [facility] Outpatient Encounter [id number] 02/05 [facility] [place] [facility] Outpatient Encounter [id number] 02/11 [facility] HC PRO PHONE CALL 21-30 MIN [id number] Diagnos is: ICD-10- CM Z65.8 Oth problem s related to psychos ocial circums tances< br/> VESNA GRAY 02/11 [facility] [place] [facility] Outpatient Encounter [id number] DEBRA PINTO 02/18 [facility] SELF CARE MNGMENT TRAINING [id number] Diagnos is: ICD-10- CM J44.9 Chronic obstruc tive pulmona ry disease , unspeci fied
MAGGIE EVANS A 02/19 [facility] [place] [facility] Outpatient Encounter [id number] 03/03 [facility] [place] [facility] Outpatient Encounter [id number] Diagnos is: ICD-10- CM R26.9 Unspeci fied abnorma lities of gait and mobilit y
NANCY HOWARD 03/04 [facility] [place] [facility] Outpatient Encounter [id number] 03/06 [place] [facility] [place] [facility] Outpatient Encounter [id number] 03/23 [place] [facility] [place] [facility] Outpatient Encounter [id number] 03/26 [place] [facility] [place] [facility] TARGETED CASE MANAGEMENT [id number] Chani PERAZA L 05/04 [place] [facility] PRO PHONE CALL 5-10 MIN [id number] Diagnos is: ICD-10- CM N18.6 End stage renal disease
FADUMO HERNANDEZ 05/05 [facility] TARGETED CASE MANAGEMENT [id number] Chani PERAZA L 05/05 [facility] TARGETED CASE MANAGEMENT [id number] Chani PERAZA L 05/13 [facility] CASE MANAGEMENT [id number] JENNIFER THAPA CCA 05/13 [facility] Outpatient Encounter [id number] 05/13 [facility] Outpatient Encounter [id number] GUADALUPE ACOSTA 05/14 [facility] CASE MANAGEMENT [id number] Chani PERAZA L 05/19 [facility] [id number] 05/19 [facility] Outpatient Encounter [id number] Chani PERAZA L 05/27 [place] [facility] Outpatient Encounter [id number] 05/28 [facility] Outpatient Encounter [id number] 05/28 [facility] Outpatient Encounter [id number] ANSELMO ARMSTRONG NANCY A 06/02 [facility] Out[facility] Encounter [id number] 06/02 [facility] Outpatient Encounter [id number] DARRELL LOO 06/17 [facility] Outpatient Encounter [id number] 06/18 [facility] Outpatient Encounter [id number] Jared RUVALCABA 06/25 [facility] HEARING AID CHECK BOTH EARS [id number] Diagnos is: ICD-10- CM Z46.1 Encount er for fitting and adjustm ent of hearing aid<br/ > DANELLE MAYFIELD 07/23 [facility] PRO PHONE CALL 5-10 MIN [id number] Diagnos is: ICD-10- CM H04.129 Dry eye syndrom e of unspeci fied lacrima l gland<b r/> FADUMO HERNANDEZ K 08/09 [facility] OFF/OP EST OCTOBER X REQ PHY/QHP [id number] Diagnos is: ICD-10- CM Z01.118 Encntr for exam of ears and hearing w oth abnorma l finding s
DAYANNA CRAWFORD 10/14 [facility] Outpatient Encounter [id number] 10/23 [facility] CONFORMITY EVALUATION [id number] Diagnos is: ICD-10- CM H90.3 Sensori neural hearing loss, bilater al
DAYANNA CRAWFORD 11/16 [facility] [place] [facility] Outpatient Encounter [id number] 12/30 [facility] OFF[facility] O/P EST HI 40 MIN [id number] Diagnos is: ICD-10- CM M79.646 Pain in unspeci fied finger( s)
BISISaskia RIBEIRO H 12/30 [facility] [place] [facility] Outpatient Encounter [id number] DEBRA PINTO 01/20 [facility] [place] [facility] Outpatient Encounter [id number] 02/10 [facility] [place] [facility] Outpatient Encounter [id number] DEBRA PINTO 02/14 [place] [facility] [place] [facility] Outpatient Encounter [id number] KALYANI COPELAND H 02/23 [facility] SELF CARE MNGMENT TRAINING [id number] Diagnos is: ICD-10- CM R26.89 Other abnorma lities of gait and mobilit y
RASHEL HAYES 04/07 [facility] [place] [facility] SELF CARE MNGMENT TRAINING [id number] Diagnos is: ICD-10- CM R26.89 Other abnorma lities of gait and mobilit y
RASHEL HAYES 04/28 [facility] [place] [facility] SELF CARE MNGMENT TRAINING [id number] Diagnos is: ICD-10- CM R26.89 Other abnorma lities of gait and mobilit y
RASHEL HAYES 05/17 [place] [facility] [place] [facility] En[facility] [id number] 06/06 [place] [facility] [place] [facility] Outpatient Encounter [id number] 06/14 [place] [facility] [place] [facility] Outpatient Encounter [id number] 06/20 [place] [facility] [facility] [place] [facility] Out[place] Encounter [id number] 06/20 [place] [facility] [facility] [place] [facility] NQHP OL DIG ASSMT&MGMT 5-10 [id number] Diagnos is: ICD-10- CM I25.10 Athscl heart disease of [place] coronar y artery w/o ang pctrs<b r/> ANGIE BOOTHE [facility] Social History Combined list of available smoking, tobacco, and 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 Social History Type Response Date Comment Sourc e Tobacco smoking status NHIS PA-TOBACCO FORMER USER 12/31/2023 [facility] History of tobacco use PA-TOBACCO QUIT 1 5 YRS OR MORE 12/31/2023 [facility] History of tobacco use PA-TOBACCO FORMER USER 12/18/2022 [facility] History of tobacco use PA-TOBACCO FORMER USER 11/05/2021 [facility] History of tobacco use PA-TOBACCO QUIT 1 5 YRS OR MORE 07/28/2019 [facility] History of tobacco use VA-TOBACCO FORMER USER 12/10/2018 [facility] History of tobacco use VA-TOBACCO FORMER USER 02/25/2018 [facility] History of tobacco use FORMER TOBACCO US ER 7Y OR GREATER 04/10/2015 [facility] History of tobacco use FORMER TOBACCO US ER 7Y OR GREATER 04/27/2014 [facility] History of tobacco use FORMER TOBACCO US ER 7Y OR GREATER 06/18/2006 [facility] Plan of Care List of future care activities from Department of Veterans 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 Additional future care activities may be listed in the Assessment and Plan section. Date/Time Care Activity Care Activity Detail Facili ty 07/26/2024 AMBULATORY - REHAB MEDICINE AMBULATORY - REHAB MEDICINE [facility] Advance Directives List of completed, amended, or rescinded Advance Directives on record at Department of Veterans 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 An actual copy of the Directive is not included. Date Advance Directive Provider Source 05/23/2003 [facility] DIRECTIVE [facility]
== END 2024-07-05 19:15 | disposition home or self-care (01) ==
PROVIDERS: Emergency Provider Family Medicine; PCP Family Medicine
DX: M79.10 Myalgia, unspecified site (principal); M54.2 Cervicalgia; N18.6 End stage renal disease; Z99.2 Dependence on renal dialysis; R06.02 Shortness of breath
CPT/HCPCS: 36415; 70450; 71045; 71250; 80053; 82803; 83735; 83880; 84484; 85025; 85651; 86140; 87631; 99284; 99285; A9270; J7512

== ENCOUNTER 2024-07-12 00:18 | Emergency (ER) | payer MEDICARE, OTHER, SELFPAY ==
--- OUTSIDE RECORDS SUMMARY | 2024-07-12 00:22 | XMS_ITS | Continuity of Care Document ---
Author Organization [facility] Address [address] [address] [place] [address] Phone Care Team Providers Care Route Rider Supervisor Name Role Phone Unavailable Unavailable Unavailable Advance Directives Directive Yes / No Effective Date File Name No Information Encounters Encounter Description Practice Location Reason(s) For Visit Diagnoses Date Provider Providers Copied on Encounter [facility], [address] [address], [place], [place], [id number], [place] tel:[phone] [facility] No Information Aug-201 8 No [...]
--- OUTSIDE RECORDS SUMMARY | 2024-07-12 00:22 | XMS_ITS ---
Author Name [facility] Address [address] [place] [address] Phone [phone] [facility] e, NA DOCUMENT DISCLAIMER Multiple document versions may exist, please be sure you review the latest version. 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 [...] capsule ORAL January 07, 2023 Active Dialyvite [phone]-[id number]-mg Take by mouth every evening with meals [...] 1 tablet ORAL January 07, 2023 Active prednisone 20 mg ORAL July 06, 2024 July 12, 2024 Active Restasis 0.05% Instill into both eyes twice a day 1 drop OPHTHALMIC January 07, 2023 Active Robitussin Cough-Chest Paul DM 5-100 mg/5 mL Take by mouth every eight hours as needed 5 ml ORAL January 07, 2023 Active senna 8.6 mg Take by mouth twice a day as directed 2 capsule ORAL January 07, 2023 Active Singulair 10 mg ORAL January 11, 2024 Active tiotropium bromide 18 mcg Inhale using [...] zinc 50mg Unknown January 11, 2024 Active midodrine 10 mg ORAL June 10, 2024 June 20, 2024 Discontinued VITAL SIGNS Post-Treatment Vital Signs Vital Sign Value Date / Time Blood Pressure-sitting 142/60 mmHg June 102024 11:39 AM Heart Rate 78 beats per minute July 08, 2024 11:39 AM Respiratory Rate 15 breaths per minute June 102024 11:39 AM Temperature 96.4 deg. F July 08, 2024 11:39 AM Weight Vital Sign Value Date / Time Estimated Dry Weight 87.5 kg June 20, 2024 11:59 PM Pre-Dialysis 91.30 kg July 08, 2024 11:39 AM Post-Dialysis 89.10 kg July 08, 2024 11:39 AM Other Other Value Date / Time Height 183 cm October 02, 2023 1 2:00 AM Body Mass Index 26.13 kg/m2 June 17, 2024 04:41 PM [facility] RES[facility] Hematology Result Type Result Value Relevant Referen ce Range Interpretation Date Folate, Serum > 24.0 ng/mL No Reference Ran ge Provided - October 05, 2023 Platelets 105 1000/mcL 130 - 400 1000/mcL Low Janu 2023 WBC (No Diff) 5.55 1000/mcL 4.80 [...] mcg/dL 185 - 515 mcg/dL - e r 2023 WBC (No Diff) 6.31 1000/mcL 4.80 - 10.80 1000/mcL - February 10, 2024 Neutrophils 70.7 % 40.0 - 75.0 % - February 10, 2024 Platelets 109 1000/mcL 130 - 400 1000/mcL Low Feb ember 2023 WBC (No Diff) 5.42 1000/mcL 4.80 [...] 120 mcg/dL 155 - 355 mcg/dL Low Novem2023 Iron 77 mcg/dL 45 - 160 mcg/dL [...] 177 1000/mcL 130 - 400 1000/mcL [facility] 2023 Hemoglobin x 3 25.8 % 42.0 [...] 122 mcg/dL 155 - 355 mcg/dL Low 2023 Transferrin Sat. (Calc) 39 % 20 - 55 % - May 11 Hemoglobin x 3 24.9 % 42.0 - 54.0 % Low e 2023 Hemoglobin x 3 24.6 % 42.0 - 54.0 % Low June 10, 2024 Iron 81 mcg/dL 45 - 160 mcg/dL - June UIBC (Calc) 127 mcg/dL 155 - 355 mcg/dL Low June 15, 2024 TIBC 208 mcg/dL 185 - 515 mcg/dL - June 15, 2024 Transferrin Sat. (Calc) 39 % 20 - 55 % - June 15, 2024 Platelets 191 1000/mcL 130 - 400 1000/mcL - [facility]2024 Hemoglobin x 3 24.6 % 42.0 [...] % 0.0 - 4.0 % High June 15, 025 Neutrophils 70.5 % 40.0 - 75.0 % - June Hemoglobin x 3 24.0 % 42.0 - 54.0 % Low June 22, 2024 HGB 8.0 g/dL 14.0 - 18.0 g/dL Low June 22, 2024 HGB 8.2 g/dL 14.0 - 18.0 g/dL Low June 29, 2024 Hemoglobin x 3 24.6 % 42.0 - 54.0 % Low June 29, 2024 HGB 8.1 g/dL 14.0 - 18.0 g/dL Low July 06, 2024 Hemoglobin x 3 24.3 % 42.0 - 54.0 % Low July 06, 2024 Metabolic/Renal Result Type Result Value Relevant Referen ce Range Interpretation Date Vitamin B12 844 pg/mL 211 - 911 pg/mL - September URR, Calc 73 % 65 - 80 % - April 13, 2 024 BUN, Post 22 mg/dL 6 - [...] Low April 13, 2024 BUN/Creat Ratio 13.1 .0 - 20.0 - April 13, 2024 Creatinine, [...] ge Provided - May 11, 2024 spKt/V Got 1.50 No Reference Ran ge Provided - [...] Range Provided - June 15, 2024 spKt/V Got 1.20 No Reference Ran ge Provided - June 15, 2024 wstdKt/V 2.1 No Reference Ran ge Provided - June 15, 2024 wstdKt/V without residual 2.1 No Reference Range Provided - June 15, 2024 eKt/V ([place]) 1.02 No Reference Range Provided - June 15, 2024 Krt/V 0.00 No Reference Ran ge Provided - June 20, 2024 spKt/V Got 1.43 No Reference Ran ge Provided - [...] U/L - 2023 Ca x P Product 23 0 - April Phosphorus 2.4 mg/dL 2.6 [...] 1.1 1.0 - 2.0 - April 13 Total Protein 7.2 g/dL 6.0 - 8.5 [...] March 23, 2023 0.5 mL Intramuscular Completed [place] COVID-19 Vac cine, Bivalent, Booster March 17, [...] Dialysis Access Meds Admin Jundino 2024 Weight 91.60 kg Weight 89.00 kg 03:30:00 450 3.0 K, 2.5 Ca, 1.0 Mg, 100 Dextrose (G3251) 180nre Optifl ux Blood Pressure-sitting 156/72 mmHg Blood Pressure-sit ting 131/62 mmHg Heart Rate 85 beats per minute Heart Rate 78 beats per minute Respiratory Rate 16 breaths per minute Respiratory Rate 16 breaths per minute Temperature 97.5 deg. F Temperature 97.9 deg. F July 06, 2024 Weight 91.00 kg Weight 88.20 kg 03:17:00 400 3.0 K, 2.5 Ca, 1.0 Mg, 100 Dextrose (G3251) 180nre Optiflux Hemodialysis-AV Fistula-Standard, Left Forearm, Other/Unknown Acetaminophen; 650mg,Oral Blood Pressure-sitting 141/72 mmHg Blood Pressure-sit ting 162/74 mmHg Heart Rate 82 beats per minute Heart Rate 70 beats per minute Respiratory Rate 18 breaths per minute Respiratory Rate 16 breaths per minute Temperature 98.1 deg. F Temperature 97.8 deg. F July 08, 2024 Weight 91.30 kg Weight 89.10 kg 03:30:00 450 3.0 K, 2.5 Ca, 1.0 Mg, 100 Dextrose (G3251) 180nre [facility]if[facility] Hemodialysis-AV Fistula-Standard, Left Forearm, Other/Unknown - Blood Pressure-sitting 147/75 mmHg Blood Pressure-sit ting 142/60 mmHg Heart Rate 86 beats per minute Heart Rate 78 beats per minute Respiratory Rate 15 breaths per minute Respiratory Rate 15 breaths per minute Temperature 97.7 deg. F Temperature 96.4 deg. F
--- OUTSIDE RECORDS SUMMARY | 2024-07-12 00:22 | XMS_ITS | CONTINUITY OF CARE DOCUMENT ---
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 Genoveva Stephens , [address] [facility] [address] [facility] [address] [facility] VITAL SIGNS Date Observation Value Provider Organization blood pressure, diastolic 64 mm[Hg] Mili Bredemus , [address] [facility] blood pressure, systolic 142 mm[Hg] Mili Bredemus , [address] [facility] blood pressure, site #1 Upper arm Mili Bredemus , [address] [facility] blood pressure, diastolic, right arm 64 mm[Hg] Mili Bredemus , [address] [facility] blood pressure, systolic, right arm 142 mm[Hg] Mili Bredemus , [address] [facility] respiratory rate E&M 22 /min Mili Bredemus , [address] [facility] pulse rate 73 /min Milinahun Sanchezemu s , [address] [facility] temperature E&M 98.3 [degF] Mili brink , [address] [facility] Body Mass Index (Ratio) 31.68 kg/m2 Mili Pizano , [address] [facility] weight E&M 220 [lb_av] Mili Ibanez s , [address] [facility] height E&M 70 [in_i] Mili Ibanez s , [address] [facility] blood pressure, diastolic 72 mm[Hg] Angelica Oswald , [address] [facility] blood pressure, systolic 160 mm[Hg] Angelica Oswald , [address] [facility] blood pressure, site #1 Upper arm Angelica Oswald , [address] [facility] blood pressure, diastolic, right arm 72 mm[Hg] Angelica ChenBeaumont , [address] [facility] blood pressure, systolic, right arm 160 mm[Hg] Angelica Beckerather , [address] [facility] [address] [facility] respiratory rate E&M 16 /min Angelica mijares , [address] [facility] [address] [facility] pulse rate 83 /min Angelica Denson her , [address] [facility] temperature E&M 98.4 [degF] Angelica silva , [address] [facility] [address] [facility] Body Mass Index (Ratio) 32.26 kg/m2 Angelica Oswald , [address] [facility] weight E&M 224 [lb_av] Angelica boggs , [address] [place] [address] [address] [facility] height E&M 70 [in_i] Angelica Denson her , [address] [place] [address] [address] [facility] blood pressure, diastolic 75 mm[Hg] Radha De Leon RN RN, [address] [place] [address] [address] [facility] blood pressure, systolic 181 mm[Hg] Radha De Leon RN RN, [address] [place] [address] [address] [facility] respiratory rate E&M 14 /min Radha solano RN RN, [address] [place] [address] [address] [facility] pulse rate 58 /min Radha De Leon RN R N, [address] [place] [address] [address] [facility] blood pressure, site #1 Upper arm Radha De Leon RN RN, [address] [place] [address] [address] [facility] blood pressure, diastolic, right arm 75 mm[Hg] Radha De Leon RN RN, [address] [place] [address] [address] [facility] blood pressure, systolic, right arm 181 mm[Hg] Radha De Leon RN RN, [address] [place] [address] [address] [facility] temperature E&M 98.0 [degF] Radha De Leon R N RN, [address] [place] [address] [address] [facility] Body Mass Index (Ratio) 31.97 kg/m2 Radha De Leon RN RN, [address] [place] [address] [address] [facility] weight E&M 222 [lb_av] Radha De Leon RN R N, [address] [place] [address] [address] [facility] height E&M 70 [in_i] Radha De Leon RN R N, [address] [place] [address] [address] [facility] ALLERGIES Allergy Name Onset Date Reaction Criticality Status Provider Or ganization PRILOSEC OTC diarrhea High Criticality active Genoveva Stephens , [address] [place] [address] [address] [place] [address] [facility] REGLAN gynecomastia High Criticality active Genoveva Stephens [address] [place] [address] [facility] LISINOPRIL GI upset High Criticality active [facility] , [address] [facility] [address] [place] [address] [facility] LIPITOR High Criticality active Ra [facility] , [address] [facility] [address] [place] [address] [facility] RESULTS Date Observation Value Provider Organization Refer ence Range Interpretation Location blood glucose, finger stick 183 Mili Pizano , [address] [facility] HISTORY OF MEDICATION USE Medication Instructions Status Dates Provider Indications Com ments Organization Protonix 40 mg tablet,delayed release (DR/EC) active Mili Pizano , [address] GALZIN 50 MG ORAL CAPSULE active Gen[address] [place] [address] [facility] CVS VITAMIN E 400 UNIT ORAL CAPSULE 1 daily active [address] [place] [address] [facility] VITAMIN D (ERGOCALCIFERO L) [address] UNIT ORAL CAPSULE 1 cap daily active [address] [place] [address] [facility] TYLENOL 8 HOUR 650 MG ORAL TABLET EXTENDED RELEASE PRN active Gen[address]va[address] [place] [address] [facility] SYMBICORT 160-4.5 MCG/ACT INHALATION AEROSOL 2 puffs daily active [address] [place] [address] [facility] SPIRIVA HANDIHALER 18 MCG INHALATION CAPSULE 1 daily active [address] [place] [address] [facility] SINGULAIR 10 MG ORAL TABLET 1 daily active [address] [place] [address] [facility] CVS SENNA 8.6 MG ORAL TABLET 2 tabs in AM 2 tabs in PM daily active [address] [place] [address] [facility] PRAVACHOL 80 MG ORAL TABLET 1 daily active [address] [place] [address] [facility] NOVOLOG FLEXPEN 100 UNIT/ML SUBCUTANEOUS SOLUTION PEN-INJECTOR 3 times daily active [address] [place] [address] [facility] NITROSTAT 0.4 MG SUBLINGUAL TABLET SUBLINGUAL active [address] [place] [address] [facility] MEGARED OMEGA-3 KRILL OIL 500 MG ORAL CAPSULE 1 daily active [address] [place] [address] [facility] ALLERGY RELIEF 10 MG ORAL TABLET 1 daily active [address] [place] [address] [facility] LEVO-T 175 MCG ORAL TABLET 1 at night active [address] [place] [address] [facility] LANTUS 100 UNIT/ML SUBCUTANEOUS SOLUTION active [address] [place] [address] [facility] GAVISCON TABLET CHEWABLE PRN active [address] [place] [address] [facility] FLOVENT HFA 110 MCG/ACT INHALATION INHALER active [address] [place] [address] [facility] FLUNISOLIDE 25 MCG/ACT (0.025%) NASAL SOLUTION PRN active [address] [place] [address] [facility] CO Q 10 100 MG ORAL CAPSULE 1 daily active [address] [place] [address] [facility] DIALYVITE ORAL TABLET active [address] [place] [address] [facility] ASPIRIN ADULT LOW DOSE 81 MG ORAL TABLET DELAYED RELEASE 1 daily active [address] [facility] [address] [facility] ALBUTEROL SULFATE HFA 108 (90 BASE) MCG/ACT INHALATION AEROSOL SOLUTION 1-2 puffs 4 times daily active Genoveva Stephens , [address] [place] [address] [address] [facility] [address] [facility] SOCIAL HISTORY Date Observation Value Provider Organization 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, [address] [place] [address] [address] [facility] social history reviewed E&M reviewed - no changes required Mili Pizano , [address] [place] [address] Drive [address] [facility] 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 Yayo Hooker MD, MD, [address] [place] [address] [facility] social history reviewed E&M reviewed - no changes required Angelica Oswald , [address] [place] [address] [address] [facility] [address] [place] [address] [facility] 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 Yayo Hooker MD, MD, [address] [place] [address] Drive [address] [facility] social history reviewed E&M reviewed - no changes required Radha De Leon RN RN, [address] [place] [address] [address] [facility] INSURANCE PROVIDERS Payer name Policy type / Coverage type [employer] party ID MEDICARE [id number] COMMERCIAL INSURANCE [id number] 5 HISTORY OF PROCEDURES Procedure Date Procedure Name Provider Procedure Notes Status Organization INJECTION FENTANYL CITRATE 100MCG Yayo Hooker MD, MD, [address] [facility] [address] completed [facility] INFUS NORMAL SALINE SOLUTION 250 CC Yayo Hooker MD, MD, [address] [facility] [address] completed [facility] INJECTION MIDAZOLAM HCL PER 1 MG Yayo Hooker MD, MD, [address] [facility] [address] completed [facility] Wire Yayo Hooker MD, MD, [address] [facility] [address] completed [facility] Balloon Yayo Hooker MD, MD, [address] [facility] [address] completed [facility] Sheath Yayo Hooker MD, MD, [address] [facility] [address] completed [facility] Omnipaque 300 10ml (Medicare [id number]) Yayo Hooker MD, MD, [address] [facility] [address] completed [facility] Angioplasty within including RS&I Yayo Hooker MD, MD, [address] [place] [address] completed [facility] Fistulagram, Dialysis Yayo Hooker MD, MD, [address] [facility] [address] completed [facility] Antibiotic-No Order Yayo Hooker MD, MD, [address] [facility] [address] completed [facility] Quailty Measures all negative Yyao Hooker MD, MD, [address] [facility] [address] completed [facility] SNOMED-CT:HISTORICAL PNEUMOCOCCAL VACCINATION Yayo Hooker MD, MD, [address] [facility] [address] completed [facility] SNOMED-CT:PATIENT ENCOUNTER Yayo Hooker MD, MD, [address] [facility] [address] completed [facility] SNOMED-CT: [id number] Current Medications Documented Yayo Hooker MD, MD, [address] [facility] [address] completed [facility] INFUS NORMAL SALINE SOLUTION 250 CC Yayo Hooker MD, MD, [address] [facility] [address] completed [facility] INJECTION MIDAZOLAM HCL PER 1 MG Yayo Hooker MD, MD, [address] [facility] [address] completed [facility] Wire Yayo Hooker MD, MD, [address] [facility] [address] completed [facility] Balloon Yayo Hooker MD, MD, [address] [facility] [address] completed [facility] Sheath Yayo Hooker MD, MD, [address] [facility] [address] completed [facility] Omnipaque-Visipaque Yayo Hooker MD, MD, [address] [facility] [address] 20 ml completed [facility] Angioplasty within including RS&I Yayo Hooker MD, MD, [address] [facility] [address] completed [facility] Fistulagram, Dialysis Yayo Hooker MD, MD, [address] [place] [address] completed [facility] Antibiotic-No Order Yayo Hooker MD, MD, [address] [facility] [address] completed [facility] Quailty Measures all negative Yayo Hooker MD, MD, [address] [facility] [address] completed [facility] SNOMED-CT:HISTORICAL PNEUMOCOCCAL VACCINATION Yayo Hooker MD, MD, [address] [facility] [address] completed [facility] SNOMED-CT:PATIENT ENCOUNTER Yayo Hooker MD, MD, [address] [facility] [address] completed [facility] SNOMED-CT: [id number] Current Medications Documented Yayo Hooker MD, MD, [address] [facility] [address] completed [facility] INFUS NORMAL SALINE SOLUTION 250 CC Yayo Hooker MD, MD, [address] [facility] [address] completed [facility] INJECTION MIDAZOLAM HCL PER 1 MG Yayo Hooker MD, MD, [address] [facility] [address] completed [facility] INJECTION FENTANYL CITRATE 100MCG Yayo Hooker MD, MD, [address] [facility] [address] completed [facility] Wire Yayo Hooker MD, MD, [address] [facility] [address] completed [facility] Balloon Yayo Hooker MD, MD, [address] [facility] [address] completed [facility] Sheath Yayo Hooker MD, MD, [address] [place] [address] completed [facility] Omnipaque-Visipaque Yayo Hooker MD, MD, [address] [facility] [address] 20 ml completed [facility] Angioplasty within including RS&I Yayo Hooker MD, MD, [address] [facility] [address] completed [facility] Fistulagram, Dialysis Yayo Hooker MD, MD, [address] [place] [address] completed [facility] Antibiotic-No Order Yayo Hooker MD, MD, [address] [facility] [address] completed [facility] Quailty Measures all negative Yayo Hooker MD, MD, [address] [facility] [address] completed [facility] SNOMED-CT:HISTORICAL PNEUMOCOCCAL VACCINATION Yayo Hooker MD, MD, [address] [place] [address] completed [facility] SNOMED-CT:PATIENT ENCOUNTER Yayo Hooker MD, MD, [address] [facility] [address] completed [facility]
--- OUTSIDE RECORDS SUMMARY | 2024-07-12 00:22 | XMS_ITS | Data Portability ---
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 Patient reports going for dialysis sessions. [email or web address] Not available 11/15/2020 13:42:00 Plan of Treatment Reminders Order Date Submit Date Provider Last Modified By Organization Details Last Modified Time Details Appointments None recorded. Lab culture, urine 2020 021 [facility] [place], [address], [place], [address], 10:10:11 Referral None recorded. Procedures None recorded. Surgeries None recorded. Imaging None recorded. Medication Orders Levaquin 250 mg tablet 2020 021 [email or web address] [id number], [address] [place], [place], [phone], 12:23:07 Cipro 500 mg tablet 2020 021 [email or web address] [facility] #[id number], [address] [place], [place], [phone], 12:21:55 Patient TargetsNo targets recorded. Patient Instructions Encounter Date Encounter Id Patient Instructions Last Modified By Organization Details Last Modified Time 11/15/2020 [id number] Patient is to follow up with provider. [email or web address] Not available 11/15/2020 17:00:25 Reason for Referral [...] ate 1) Sensi tivit y [facility] [place] te 1 ----- ----- ----- ----- ----- [...] s Desk [facility]. S= Susce ptibl e;I= Inter media te;R= Resis tant; ESBL= Resis tance due to confi rmed ESBL Not Available [facility] [address], [place], [address], 11/01/2020 10:10:11 10/30/19 21 10/18/2020 CT, abdom en + pelvi s, w/ contr ast No observ ation record ed. [email or web address] Not Available 2020 09:31:35 Result Notes None recorded. Problems Name Problem SNOMED Code Status Onset Date Resolution Date Notes Provider Name and Address Organization Details Recorded Time Blood in urine 09065053 Active 021 Marvin Robbins MD [address] [place] [address],[address], [place], [address], [facility] 10/30/2020 16:27:48 Problem Notes None recorded. Procedures Surgical History Date Name Laterality Status Provider Name and Address Organization Details Recorded Time 12/21/19 21 CystoscopyMale completed Marvin Robbins MD [address], [place], [address], [facility] 12/20/2020 14:14:08 11/16/19 21 Torre Catheter Insertion completed [facility] 11/15/2020 17:05:13 11/16/19 21 Fill and Pull/Voiding Trial/TOV completed [facility] 11/15/2020 17:05:22 10/31/19 21 CystoscopyMale completed Marvin Robbins MD [address], [place], [address], [facility] 10/30/2020 17:55:08 Cardiac Surgery completed Marvin Robbins MD [address] [place] [address],[address], [place], [address], [facility] 10/30/2020 16:31:03 Cataract Surgery completed Denny Robbins MD [address] [place] [address],[address], [place], [address], [facility] 10/30/2020 16:31:33 Colonoscopy completed Marvin Robbins MD [address], [place], [address], [facility] 10/30/2020 16:31:42 Heart Surgery completed Marvin Robbins MD [address] [place] [address],[address], [place], [address], [facility] 10/30/2020 16:31:50 Orthopedic Surgery completed Cris Robbins MD [address] [place] [address],[address], [place], [address], [facility] 10/30/2020 16:31:56 Imaging Results [...] Name and Address Organization Details Recorded Time 564730 Lipitor medicatio n Not available Not available Not available 10/30/2020 30722 5 RxNorm Not Available Not Available Not Available 673265 lisinopri l medicatio n Not available Not available Not available 10/30/2020 95339 RxNorm Not Available Not Available Not Available 074558 metoclopr amide Not available Not available Not available Not available 10/30/2020 6915 RxNorm Not Available Not Available Not Available 538952 Reglan medicatio n Not available Not available Not available 10/30/2020 9230 RxNorm Not Available Not Available Not Available 486047 omeprazol e medicatio n Not available Not [...] t Available Vitals Date Recorded Body height Body weight Provider Name and Address Organization Details Last Updated DateTime 01/28/2022 182.88 cm 04478.84 g Eriberto Yip MD [address],[facility] [address], [address], [facility] 01/28/2022 12:21:20 Date Recorded Body height Body mass index (BMI) Body weight Provider Name and Address Organization Details Last Updated DateTime 10/30/2020 182.88 cm 30.4 kg/m2 218618.69 g Marvin Robbins MD [address] [place] [address],[facility] [address], [place], [address] [place] [address] 10/30/2020 16:21:14 Date Recorded Body height Provider Name an d Address Organization Details Last Updated DateTime 11/15/2020 182.88 cm Vidya Akhtar [facility] 11/15/2020 17:16:37 Date Recorded Body height Body mass index (BMI) Body weight Provider Name and Address Organization Details Last Updated DateTime 12/20/2020 182.88 cm 30.4 kg/m2 446268.69 g Ruby Encinas [facility] 12/20/2020 12:22:55 Social History Question Answer Notes LastModified by Organizat ion Details LastModified Time Tobacco Smoking Status Former Smoker Marvin Robbins MD [address] [place] [address],[address], [address], [facility] 10/30/2020 16:29:31 What Is Your Level Of Alcohol Consumption? Occasional Information not available 10/30/2020 What Is Your Level Of Caffeine Consumption? Moderate Information not available 10/30/2020 How Much Tobacco Do You Chew? None Information not available 10/30/2020 Do You Or Have You Ever Used E-cigarettes Or Vape? Never Used Electronic Cigarettes Information not available 10/30/2020 When Did You Quit Smoking? 16+yearsshira oakes Information not available 10/30/2020 Race White Information no t available 10/30/2020 Ethnicity Not / Information not available 10/30/2020 Preferred Language Malaysian [email or web address] Information not available 10/30/2020 Marital Status channing Informatio n not available 10/30/2020 What Was [...] Immunizations Vaccine Type Date Status Note Provider Nam e and Address Organization Details Recorded Time Pneumococcal conjugate PCV 13 5 completed Marvin Robbins MD [address] [place] [address],[address], [place], [address], [facility] 10/30/2020 16:27:27 Past Encounters Encounter ID Performer Location Encounter Start Date Encounter Closed Date Diagnosis/Indication Diagnosis SNOMED-CT Code Diagnosis ICD10 Code Diagnosis Note [id number] Marvin Robbins MD [facility] [address] [address] 10/30/2020 15:45:07 11/01/2020 12:51:51 Acute cystitis 67815158 N30.01 Voiding trial in 3 weeks Pyocystis 196051326 N30. 80 Torre for 2-3 weeks for drainagewo uld consider a voiding trial and cysto in 2-3 weeksAbx for pyocystis [id number] Marvin Robbins MD [facility] [address] [place] [address] 11/15/2020 12:21:28 11/19/2020 11:48:02 Retention of urine 230186713 R33.9 [id number] Marvin Robbins MD [facility] [address] [place] [address] 12/20/2020 11:53:14 12/21/2020 15:08:02 Blood in urine 87846065 R31.9 H/o pyocystisC IC at the time of dialysisf/ u in 3 months [id number] Eriberto Yip MD [facility] [address] [place] [address] 01/28/2022 11:55:03 01/31/2022 10:21:56 Retention of urine 427433069 R33.9 1. Urinary retention- has large capacity bladder- makes very little urine- continue weekly catheteriz ation (with Gentamicin bladder washing)- Follow-up in 1 year Cystitis 61599771 N30.90 2. Recurrent cystitis- continue Gentamicin bladder [...] ID Guarantor Name 10/30/2020 1 MEDICARE B: [employer] MEDICARE Korey Mackay [id number] Korey Mackay 10/30/2020 2 [facility] (MEDICARE SUPPLEMENT) 61 Korey Mackay [id number] Korey Mackay 11/15/2020 1 MEDICARE B: [employer] MEDICARE Korey Mackay [id number] Korey Mackay 11/15/2020 2 [facility] 61 Korey Mackay [id number] Korey Cottonlimarcella 12/20/2020 1 MEDICARE B: [employer] MEDICARE Korey Cottonlimarcella [id number] Korey Cottonlimarcella 12/20/2020 2 [facility] 61 Korey Mackay [id number] Korey Cottonlimarcella 01/28/2022 1 MEDICARE B: [employer] MEDICARE Korey Cottonlimarcella [id number] Korey Cottonlimarcella 01/28/2022 2 [facility] 61 Korey Mackay [id number] Korey Mackay Notes Date Note Type Note Provider Name and Address Organization Details Recorded Time 10/30/2020 text/html H/p intermittent gross hematuria in the past 3 weeks; on HD for ESRD. According to the patient he does not make urine. He was admitted to the [facility] 2 with elevated PVR ( 500cc). His cysto today showed pus in the bladder under high pressure; could not complete cysto. I placed 16 Fr Torre and irrigate the bladder. Marvin Robbins MD [address] [place] [address], [address], [facility] 10/30/2020 17:55:38 12/20/2020 text/html H/p intermittent gross hematuria in the past 3 weeks; on HD for ESRD. According to the patient he does not make urine ( 30 cc a day).He was admitted to the [facility] times 2 with elevated PVR ( 500cc) and Pyocystis. His cysto today showed normal bladder mucosa; small prostate; failed a voiding trial. Marvin Robbins MD [address] [place] [address],[address], [address], [facility] 12/20/2020 14:15:23 01/28/2022 text/html [...] or hematuria.-------- - Eriberto Yip MD [address], [place], [address], [facility] 01/28/2022 13:29:56
--- OUTSIDE RECORDS SUMMARY | 2024-07-12 00:24 | XMS_ITS | Continuity of Care Document ---
Author Name [facility] Organization [facility] Care Team Providers Care Instructional Support Specialist Name Role Phone [facility] Unavailable Unavailable Problems Combined list of problems from Department of Defense and Veterans 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 It does not include entries that were removed or entered in error. Problem Status Onset Date Problem Type Date of Resolution Comments Source Adenoma of large intestine Active Condition Jan 17, 2005 Entered By: TOMMY SARMIENTO Comment: colonoscopy and polypectomy 12/10, tubular adenoma at [facility] Cataract, Senile, Unsp Active Condition [facility] Chronic cough Active Condition [facility] Chronic obstructive lung disease Active Condition [facility] Chronic rhinitis Active Condition [facility] Coronary arteriosclerosis Active Condition Nov 10 7 Entered By: LIZZETTE WEI Comment: s/p [id number] at [facility] in 07/15 [facility] Diabetes mellitus Active Condition [facility] Diabetic neuropathy Active Condition [facility] Diabetic renal disease Active Condition Dec 02, 2018 Entered By: CARLOS DALTON Comment: 10/2018: started hemodialysis @ [facility] in 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 [facility] Dyslipidemia Active Condition [facility] End-stage renal disease Active Condition [facility] Essential hypertension Active Condition [facility] Exposure to potentially hazardous substance Active Condition Dec 18, 2022 Entered By: CORRINE MATHEWS Comment: Asbestos [facility] Ganglion of wrist Active Condition [facility] Gastroesophageal reflux disease without esophagitis Active Condition [facility] Hemorrhoid Active Condition [facility] Hyperparathyroidism due to renal insufficiency Active Condition [facility] Hypothyroidism Active Condition [facility] Incontinence of feces Active Condition [facility] Indwelling catheter inserted Active Condition [facility] Obstructive Sleep Apnea of Adult (SCT [id number]) Active Condition October 28, 2022 Entered By: KINGS ROCHA Comment: APAP: 10-20, Ramp: 5x10 min, [place] [facility] Oropharyngeal dysphagia Active Condition Dec 14, 2022 Entered By: CORRINE MATHEWS Comment: 2013 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 in chart [facility] Psoriasis Nos Active [facility] Shared care - sales consultant and GP Active Condition Dec 02 Entered By: CARLOS DALTON Comment: [facility]: [phone] ov 2020 Entered By: CARLOS DALTON Comment: Director Of Consulting Services: Dr James Pérez [phone] ov 2020 Entered By: CARLOS DALTON Comment: [facility] Cough (ICD-9-CM 786.2) Inactive Condition 03/23/2013 [facility] Diabetic Foot Ulcer (ICD-9-CM 250.80/707.8) Inactive Condition 03/23/2013 [facility] Diagnosis: ICD-10-CM I25.10 Athscl heart disease of [place] coronary artery w/o ang pctrs Active Diagnosis [facility] Diagnosis: ICD-10-CM R26.89 Other abnormalities of gait and mobility Active Diagnosis [facility] Diagnosis: ICD-10-CM M79.646 Pain in unspecified finger(s) Active Diagnosis [facility] Diagnosis: ICD-10-CM H90.3 Sensorineural hearing loss, bilateral Active Diagnosis [facility] Diagnosis: ICD-10-CM Z01.118 Encntr for exam of ears and hearing w oth abnormal findings Active [facility] Diagnosis: ICD-10-CM H04.129 Dry eye syndrome of unspecified lacrimal gland Active Diagnosis [facility] Diagnosis: ICD-10-CM Z46.1 Encounter for fitting and adjustment of hearing aid Active Diagnosis [facility] Diagnosis: ICD-10-CM N18.6 End stage renal disease Active Diagnosis [facility] Diagnosis: ICD-10-CM R26.9 Unspecified abnormalities of gait and mobility Active Diagnosis [facility] Diagnosis: ICD-10-CM J44.9 Chronic obstructive pulmonary disease, unspecified Active Diagnosis [facility] Diagnosis: ICD-10-CM Z65.8 Oth problems related to psychosocial circumstances Active Diagnosis [facility] Medications Combined list of outpatient [...] RELIEF). RESPIR ATORY (INHAL ATION) ACTIVE 11/09/2024 [id number] 5 CASANDRA DALTON 2023 2 [facility] [place] [facility] ALBUTEROL 90MCG/ACTUA T (CFC-F) INHL,ORAL,8 .5GM DOSE COUNTER INHALE 2 PUFFS BY INHALATI ON EVERY 4 HOURS NEEDED FOR BREATHIN G SHAKE WELL (FOR IMMEDIAT E RELIEF). RESPIR ATORY (INHAL ATION) DISCONT INUED 08/21/2023 [id number] 4 CASANDRA DALTON 2022 2 [facility] AZELASTINE HCL 137MCG/SPRA Y INHL,NASAL, 30ML SPRAY 1 PUFF IN EACH NOSTRIL TWICE A DAY FOR NASAL SYMPTOMS NASAL ACTIVE 12/31/2024 [id number] 5 RODRÍGUEZ MATHEWS 2023 2 [facility] CALCIUM CARBONATE TAB,CHEWABL E CHEW ONE TABLET BY MOUTH FOUR TIMES A DAY NEEDED ORAL ACTIVE RODRÍGUEZ MATHEWS 2022 [facility] CLOPIDOGREL BISULFATE 75MG TAB TAKE ONE TABLET BY MOUTH EVERY DAY TO PREVENT BLOOD CLOTS LENGTH OF TREATMEN T: MARIANA TE, CO-MANAG ED CARE PRESCRIP TION ORAL ACTIVE 06/16/2025 [id number] 5 RODRÍGUEZ MATHEWS 2024 90 [facility] COENZYME Q10 CAP/TAB TAKE ONE TABLET BY MOUTH EVERY DAY ORAL ACTIVE CASANDRA DALTON 2012 [facility] CYCLOSPORIN E 0.05% (PF) EMULSION,OP H,0.4ML INSTILL 1 DROP BOTH EYES TWICE A DAY OPHTHA LMIC ACTIVE 08/10/2024 [id number] FB-PURFEE RST,MATHEW OD 2023 60 [place] [facility] DEXTROMETHO RPHAN HBR 10MG/GUAIFE NESIN 100MG/5ML (AF & SF) LIQUID TAKE 1 TEASPOON FUL BY MOUTH EVERY 4 HOURS NEEDED FOR COUGH AND CONGESTI ON ORAL ACTIVE 07/01/2025 [id number] 5 RODRÍGUEZ MATHEWS 2024 120 [facility] DEXTROMETHO RPHAN HBR 10MG/GUAIFE NESIN 100MG/5ML (AF & SF) LIQUID TAKE 1 TEASPOON FUL BY MOUTH EVERY 4 HOURS NEEDED FOR COUGH AND CONGESTI ON ORAL DISCONT INUED 03/09/2024 [id number] 4 RODRÍGUEZ MATHEWS 2022 120 [facility] DIALYVITE TAB TAKE 1 TABLET BY MOUTH EVERY DAY ORAL DISCONT INUED 09/10/2023 [id number] 4 RODRÍGUEZ MATHEWS 2022 100 [facility] DIALYVITE TAB TAKE 1 TABLET BY MOUTH EVERY DAY ORAL 07/02/2024 [id number] 5 RODRÍGUEZ MATHEWS 2023 100 [facility] FLUTICASONE 250MCG/SALM ETEROL 50MCG INHL,ORAL,D ISKUS,60 INHALE 1 PUFF BY INHALATI ON TWICE A DAY TO PREVENT TROUBLE BREATHIN G -RINSE MOUTH AFTER USING RESPIR ATORY (INHAL ATION) ACTIVE 12/28/2024 [id number] 4 RODRÍGUEZ MATHEWS 2023 3 [facility] FLUTICASONE 250MCG/SALM ETEROL 50MCG INHL,ORAL,D ISKUS,60 INHALE 1 PUFF BY INHALATI ON TWICE A DAY TO PREVENT TROUBLE BREATHIN G -RINSE MOUTH AFTER USING RESPIR ATORY (INHAL ATION) DISCONT INUED 09/23/2023 [id number] 4 RODRÍGUEZ MATHEWS 2022 3 [facility] INSULIN,ASP ART,HUMAN (EQV-NOVOLO G) 100 UNIT/ML,FLE XPEN,3ML INJECT 5 UNITS UNDER THE SKIN BEFORE MEALS FOR DIABETES SUBCUT ANEOUS ACTIVE 10/26/2024 [id number] 4 RODRÍGUEZ MATHEWS 2023 5 [place] [facility] INSULIN,ASP ART,HUMAN (EQV-NOVOLO G) 100 UNIT/ML,FLE XPEN,3ML INJECT 5 UNITS UNDER THE SKIN TWICE A DAY TO DECREASE BLOOD SUGAR-- INJECT IMMEDIAT LINDA BEFORE MEAL (PEN FILL APPROVED ) REPLACES REGULAR INSULIN PEN SUBCUT ANEOUS 05/13/2023 [id number] 3 RODRÍGUEZ MATHEWS 2021 5 [facility] INSULIN,GLA RGINE,HUMAN 100 UNIT/ML INJ,SOLOSTA R,3ML INJECT 18 UNITS UNDER THE SKIN EVERY DAY FOR DIABETES DISCAR D PEN 28 DAYS AFTER INITIAL USE SUBCUT ANEOUS DISCONT INUED (EDIT) 06/06/2024 [id number] 4 RODRÍGUEZ MATHEWS 2023 5 [facility] INSULIN,GLA RGINE-YFGN 100UNIT/ML INJ PEN,3ML INJECT 18 UNITS UNDER THE SKIN EVERY DAY FOR DIABETES DISCAR D PEN 28 DAYS AFTER INITIAL USE SUBCUT ANEOUS 06/09/2024 [id number] 4 RODRÍGUEZ MATHEWS 2023 5 [facility] LEVOTHYROXI NE NA 200MCG TAB (SYNTHROID) TAKE ONE TABLET BY MOUTH EVERY DAY FOR THYROID ORAL ACTIVE 12/28/2024 [id number] 5 RODRÍGUEZ MATHEWS 2023 90 [place] [facility] LEVOTHYROXI NE NA 200MCG TAB (SYNTHROID) TAKE ONE TABLET BY MOUTH EVERY DAY FOR THYROID ORAL DISCONT INUED 01/13/2024 [id number] 4 RODRÍGUEZ MATHEWS 2022 90 [place] [facility] LORATADINE 10MG TAB TAKE ONE TABLET BY MOUTH EVERY DAY NEEDED ORAL ACTIVE RODRÍGUEZ MATHEWS 2022 [place] [facility] MARINE LIPID (FISH OIL) CAP,ORAL TAKE 1200MG BY MOUTH EVERY DAY ORAL ACTIVE CASANDRA DALTON 2010 [facility] [place] [facility] MIDODRINE HCL 10MG TAB TAKE ONE TABLET BY MOUTH DIRECTED - TAKE 1 TABLET BEFORE DIALYSIS AND 1 TABLET AFTER DIALYSIS , NEEDED FOR HYPOTENS ION OTHER DAYS ORAL ACTIVE 06/21/2025 [id number] 5 Stefany TRAN 2024 90 [facility] [facility] MONTELUKAST NA 10MG TAB TAKE ONE TABLET BY MOUTH EVERY DAY ORAL ACTIVE 06/21/2025 [id number] 5 CASANDRA DALTON 2024 90 [place] [facility] MONTELUKAST NA 10MG TAB TAKE ONE TABLET BY MOUTH EVERY DAY ORAL DISCONT INUED 05/08/2024 [id number] 4 CASANDRA DALTON 2022 90 [facility] [place] [facility] NITROGLYCER IN 0.4MG TAB,SUBLING UAL DISSOLVE ONE TABLET UNDER THE TONGUE PRN SUBLIN GUAL ACTIVE CASANDRA DALTON 2010 [facility] [facility] PANTOPRAZOL E NA 40MG TAB,EC TAKE ONE TABLET BY MOUTH EVERY DAY ONE-HALF HOUR BEFORE EATING. ORAL ACTIVE 06/21/2025 [id number] 5 CASANDRA DALTON 2024 90 [facility] [facility] PANTOPRAZOL E NA 40MG TAB,EC TAKE ONE TABLET BY MOUTH EVERY DAY ONE-HALF HOUR BEFORE EATING. ORAL DISCONT INUED 07/02/2024 [id number] 4 CASANDRA DALTON 2023 90 [facility] PRAVASTATIN NA 40MG TAB TAKE ONE TABLET BY MOUTH AT BEDTIME FOR CHOLESTE ROL ORAL DISCONT INUED 06/05/2024 [id number] 3 CASANDRA DALTON 2022 90 [facility] PRAVASTATIN NA 40MG TAB TAKE ONE TABLET BY MOUTH AT BEDTIME FOR CHOLESTE ROL ORAL 06/06/2024 [id number] 4 RODRÍGUEZ MATHEWS 2023 90 [facility] [facility] SULFAMETHOX AZOLE 800MG/TRIME THOPRIM 160MG TAB TAKE 1 TABLET BY MOUTH TWICE A DAY ORAL 01/30/2024 [id number] 4 RODRÍGUEZ MATHEWS 2023 20 [facility] [place] [facility] TIOTROPIUM 2.5MCG/ACTU AT INHL,ORAL,6 0D,4GM INHALE TWO PUFFS BY INHALATI ON EVERY DAY FOR ASTHMA RESPIR ATORY (INHAL ATION) DISCONT INUED 04/01/2025 [id number] 4 [place] 2023 1 [facility] [place] [facility] TIOTROPIUM 2.5MCG/ACTU AT INHL,ORAL,6 0D,4GM INHALE TWO PUFFS BY INHALATI ON EVERY DAY FOR ASTHMA RESPIR ATORY (INHAL ATION) DISCONT INUED 08/26/2024 [id number] 4 [place] 2023 1 [facility] [place] [facility] TIOTROPIUM 2.5MCG/ACTU AT INHL,ORAL,6 0D,4GM INHALE TWO PUFFS BY INHALATI ON EVERY DAY FOR ASTHMA RESPIR ATORY (INHAL ATION) DISCONT INUED 10/29/2023 [id number] 4 [place] 2022 1 [facility] [place] [facility] TIOTROPIUM 2.5MCG/ACTU AT INHL,ORAL,6 0D,4GM INHALE TWO PUFFS BY INHALATI ON EVERY DAY FOR ASTHMA RESPIR ATORY (INHAL ATION) 06/29/2024 [id number] RODRÍGUEZ MATHEWS 2024 3 [facility] VANICREAM APPLY THIN LAYER TOPICALL Y EVERY DAY FOR DRY SKIN TOPICA L ACTIVE 12/28/2024 [id number] 5 RODRÍGUEZ MATHEWS 2023 1362 [facility] VANICREAM APPLY THIN LAYER TOPICALL Y EVERY DAY FOR DRY SKIN TOPICA L DISCONT INUED 12/19/2023 [id number] 4 RODRÍGUEZ MATHEWS 2022 1362 [facility] VITAMIN E 400UNT CAP TAKE 1 CAPSULE BY MOUTH EVERY DAY ORAL ACTIVE ME VELMA DAI 2013 [facility] ZINC SULFATE TAB TAKE 50MG BY MOUTH EVERY DAY ORAL ACTIVE [facility] 2014 [facility] Allergies, Adverse Reactions, Alerts Combined list of allergies from Department of [facility] and Veterans 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 It does not include entries that were removed or entered in error. Substance Category Reaction Severity Reaction type Status Date Reported Comments Source ATORVASTATIN Propensity to adverse reactions to drug (finding) Pain in lower limb active 9 [facility] DOXYCYCLINE Propensity to adverse reactions to drug (finding) PRURITIS, Eruption active 4 [facility] HYDROCODONE Propensity to adverse reactions to drug (finding) Disorientat ed, Drowsy, Hallucinati ons active 3 [facility] LIPITOR Propensity to adverse reactions to drug (finding) Cramp active 0 [facility] LISINOPRIL Propensity to adverse reactions to drug (finding) Abdominal discomfort active 7 [facility] METOCLOPRAMI DE Propensity to adverse reactions to drug (finding) Gynecomasti a active 0 [facility] OMEPRAZOLE Propensity to adverse reactions to drug (finding) Diarrhea active 0 [facility] SIMVASTATIN Propensity to adverse reactions to drug (finding) MUSLCE CRAMPS active 4 [facility] Immunizations Combined list of available immunizations from the Department of [facility] and [facility] 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 Immunization Series Date Given Administered By Site Reaction Lot Number CVX Code Drug Kiln Door Repairer Status Comments Source INFLUENZA, RECOMBINANT, QUADRIVALENT, PF 2022 185 complet ed [facility] TDAP 2022 [facility] RIGHT DELTO ID [id number] 115 complet ed [facility] INFLUENZA, UNSPECIFIED FORMULATION 2021 88 complet ed [facility] COVID-19 (PFIZER), MRNA, LNP-S, PF, 30 MCG/0.3 ML DOSE, ALY-SUCROSE (AGES 12+ YEARS) 2021 217 complet ed [facility] COVID-19 (PFIZER), MRNA, LNP-S, PF, 30 MCG/0.3 ML DOSE 2020 208 complet ed [facility] INFLUENZA, UNSPECIFIED FORMULATION 2020 88 complet ed [facility] ZOSTER RECOMBINANT 2 2020 187 complet ed [facility] COVID-19 (PFIZER), MRNA, LNP-S, PF, 30 MCG/0.3 ML DOSE 2020 208 complet ed [facility] COVID-19 (PFIZER), MRNA, LNP-S, PF, 30 MCG/0.3 ML DOSE 2020 208 complet ed [facility] ZOSTER RECOMBINANT 1 2019 187 complet ed [facility] INFLUENZA, SEASONAL, INJECTABLE, PRESERVATIVE FREE 2019 140 complet ed [facility] INFLUENZA, UNSPECIFIED FORMULATION 2018 88 complet ed [facility] INFLUENZA, SEASONAL, INJECTABLE, PRESERVATIVE FREE 2017 140 complet ed [facility] INFLUENZA, HIGH DOSE SEASONAL 2016 135 complet ed [facility] INFLUENZA, HIGH-DOSE, TRIVALENT, PF 2015 135 complet ed [facility] INFLUENZA, HIGH DOSE SEASONAL 2014 135 complet ed [facility] PNEUMOCOCCAL CONJUGATE PCV 13 2014 133 complet ed [employer] [id number] 08/22 [facility] INFLUENZA, UNSPECIFIED FORMULATION 2013 88 complet ed [facility] INFLUENZA, UNSPECIFIED FORMULATION 2013 88 complet ed [facility] ZOSTER LIVE 2013 121 complet ed [facility] INFLUENZA, UNSPECIFIED FORMULATION 2012 88 complet ed [facility] PNEUMOCOCCAL, UNSPECIFIED FORMULATION 2012 109 complet ed [employer], [id number], [facility] TDAP 2012 115 complet ed [facility] TDAP 2012 115 complet ed [facility] ZOSTER LIVE 2012 121 complet ed [employer] Lot#[id number] 14 [facility] TDAP 2012 115 complet ed [facility] INFLUENZA, UNSPECIFIED FORMULATION 2011 88 complet ed [facility] INFLUENZA, UNSPECIFIED FORMULATION 2010 88 complet ed [facility] INFLUENZA, UNSPECIFIED FORMULATION 2009 88 complet ed [facility] INFLUENZA, UNSPECIFIED FORMULATION 2008 88 complet ed [facility] TD(ADULT) UNSPECIFIED FORMULATION 2007 139 complet ed [facility] INFLUENZA, SPLIT VIRUS, TRIVALENT, PRESERVATIVE 2007 141 complet ed [facility] TD (ADULT), 5 LF TETANUS TOXOID, PRESERVATIVE FREE, ADSORBED 2007 113 complet ed [facility] INFLUENZA (HISTORICAL) 2006 88 complet ed [facility] INFLUENZA (HISTORICAL) 2005 88 complet ed [facility] INFLUENZA, UNSPECIFIED FORMULATION 2004 88 complet ed [facility] INFLUENZA, UNSPECIFIED FORMULATION 2003 88 complet ed [facility] PNEUMOCOCCAL, UNSPECIFIED FORMULATION 2003 109 complet ed [facility] TD(ADULT) UNSPECIFIED FORMULATION 2003 139 complet ed due next year [facility] INFLUENZA, SPLIT VIRUS, TRIVALENT, PRESERVATIVE 2002 141 complet ed [facility] INFLUENZA (HISTORICAL) 2002 88 complet ed pt states he had a Influenza vaccinati on this yr [facility] TD(ADULT) UNSPECIFIED FORMULATION 1994 139 complet ed [facility] Vital Signs Combined list of inpatient and outpatient Vital Signs from Department of Defense and Veterans Affairs, ranging from 12 months to all on record, depending upon the facility. Vital Sign Value Date Comments Source SYSTOLIC BLOOD PRESSURE 103 12/31/2023 13:26:57 [facility] DIASTOLIC BLOOD PRESSURE 55 12/31/2023 13:26:57 [facility] PULSE OXIMETRY 95 12/31/2023 13:26:57 M [facility] WEIGHT 200.2 12/31/2023 13:26:57 [facility] BMI 27kg/m2 12/31/2023 13:26:57 [facility] PAIN 6 12/31/2023 13:26:57 [facility] TEMPERATURE 98.4 12/31/2023 13:26:[address] [facility] PULSE 73 12/31/2023 13:26:57 [place] [facility] RESPIRATION 18 12/31/2023 13:26:[address] [facility] [facility] Encounters Combined list of: 1) Encounters from Department of [facility] Affairs facilities going back up to thelast 18 months. 2) Encounters from the Department of [facility] facilities going back up to 280 months. Location Location Details Encounter Type Encounter Number Reason For Visit Attending Provider ADM Date DC Date Status Disposition Source [place] [facility] Outpatient Encounter [id number] 01/07 [facility] [place] [facility] Outpatient Encounter [id number] 02/05 [facility] [place] [facility] Outpatient Encounter [id number] 02/11 [facility] HC PRO PHONE CALL 21-30 MIN [id number] Diagnos is: ICD-10- CM Z65.8 Oth problem s related to psychos ocial circums tances< br/> VESNA GRAY 02/11 [facility] [place] [facility] Outpatient Encounter [id number] DEBRA PINTO 02/18 [facility] SELF CARE MNGMENT TRAINING [id number] Diagnos is: ICD-10- CM J44.9 Chronic obstruc tive pulmona ry disease , unspeci fied
MAGGIE EVANS A 02/19 [facility] [place] [facility] Outpatient Encounter [id number] 03/03 [facility] [place] [facility] Outpatient Encounter [id number] Diagnos is: ICD-10- CM R26.9 Unspeci fied abnorma lities of gait and mobilit y
NANCY HOWARD 03/04 [facility] [place] [facility] Outpatient Encounter [id number] 03/06 [place] [facility] [place] [facility] Outpatient Encounter [id number] 03/23 [place] [facility] [place] [facility] Outpatient Encounter [id number] 03/26 [place] [facility] [place] [facility] TARGETED CASE MANAGEMENT [id number] Chani PERAZA L 05/04 [place] [facility] PRO PHONE CALL 5-10 MIN [id number] Diagnos is: ICD-10- CM N18.6 End stage renal disease
FADUMO HERNANDEZ 05/05 [facility] TARGETED CASE MANAGEMENT [id number] Chani PERAZA L 05/05 [facility] TARGETED CASE MANAGEMENT [id number] Chani PERAZA L 05/13 [facility] CASE MANAGEMENT [id number] JENNIFER THAPA CCA 05/13 [facility] Outpatient Encounter [id number] 05/13 [facility] Outpatient Encounter [id number] GUADALUPE ACOSTA 05/14 [facility] CASE MANAGEMENT [id number] Chani PERAZA L 05/19 [facility] En[facility] [id number] 05/19 [facility] Outpatient Encounter [id number] Chani PERAZA L 05/27 [place] [facility] [facility] Outpatient Encounter [id number] 05/28 [facility] Outpatient Encounter [id number] 05/28 [facility] Outpatient Encounter [id number] ANSELMO ARMSTRONG NANCY A 06/02 [facility] Outpatient Encounter [id number] 06/02 [facility] Outpatient Encounter [id number] DARRELL LOO 06/17 [facility] Outpatient Encounter [id number] 06/18 [facility] Outpatient Encounter [id number] Jared RUVALCABA 06/25 [facility] HEARING AID CHECK BOTH EARS [id number] Diagnos is: ICD-10- CM Z46.1 Encount er for fitting and adjustm ent of hearing aid<br/ > DANELLE MAYFIELD 07/23 [facility] PRO PHONE CALL 5-10 MIN [id number] Diagnos is: ICD-10- CM H04.129 Dry eye syndrom e of unspeci fied lacrima l gland<b r/> FADUMO HERNANDEZ K 08/09 [facility] OFF/OP EST OCTOBER X REQ PHY/QHP [id number] Diagnos is: ICD-10- CM Z01.118 Encntr for exam of ears and hearing w oth abnorma l finding s
DAYANNA CRAWFORD 10/14 [facility] Outpatient Encounter [id number] 10/23 [facility] CONFORMITY EVALUATION [id number] Diagnos is: ICD-10- CM H90.3 Sensori neural hearing loss, bilater al
DAYANNA CRAWFORD 11/16 [facility] [place] [facility] Outpatient Encounter [id number] 12/30 [facility] OFFICE O/P EST HI 40 MIN [id number] Diagnos is: ICD-10- CM M79.646 Pain in unspeci fied finger( s)
BISISaskia RIBEIRO H 12/30 [facility] [place] [facility] Outpatient Encounter [id number] DEBRA PINTO 01/20 [facility] [place] [facility] Outpatient Encounter [id number] 02/10 [facility] [place] [facility] Outpatient Encounter [id number] DEBRA PINTO 02/14 [place] [facility] [place] [facility] Outpatient Encounter [id number] KALYANI COPELAND H 02/23 [facility] SELF CARE MNGMENT TRAINING [id number] Diagnos is: ICD-10- CM R26.89 Other abnorma lities of gait and mobilit y
RASHEL HAYES 04/07 [facility] SELF CARE MNGMENT TRAINING [id number] Diagnos is: ICD-10- CM R26.89 Other abnorma lities of gait and mobilit y
RASHEL HAYES 04/28 [facility] [place] [facility] SELF CARE MNGMENT TRAINING [id number] Diagnos is: ICD-10- CM R26.89 Other abnorma lities of gait and mobilit y
RASHEL HAYES 05/17 [place] [facility] [place] [facility] Outpatient Encounter [id number] 06/06 [place] [facility] [place] [facility] Out[place] Encounter [id number] 06/14 [place] [facility] [place] [facility] Out[place] Encounter [id number] 06/20 [place] [facility] [place] [facility] [place] Encounter [id number] 06/20 [place] [facility] [place] [facility] NQHP OL DIG ASSMT&MGMT 5-10 [id number] Diagnos is: ICD-10- CM I25.10 Athscl heart disease of [place] coronar y artery w/o ang pctrs<b r/> ANGIE BOOTHE 06/20 [facility] Social History Combined list of available smoking, tobacco, and 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 Social History Type Response Date Comment Sourc e Tobacco smoking status NHIS [facility]-TOBACCO FORMER USER 12/31/2023 [facility] History of tobacco use [place]-TOBACCO QUIT 1 5 YRS OR MORE 12/31/2023 [facility] History of tobacco use [place]-TOBACCO FORMER USER 12/18/2022 [facility] History of tobacco use [place]-TOBACCO FORMER USER 11/05/2021 [facility] History of tobacco use OH-TOBACCO QUIT 1 5 YRS OR MORE 07/28/2019 [facility] History of tobacco use VA-TOBACCO FORMER USER 12/10/2018 [facility] History of tobacco use [place]-TOBACCO QUIT 1 5 YRS OR MORE 02/25/2018 [facility] History of tobacco use FORMER TOBACCO US ER 7Y OR GREATER 04/10/2015 [facility] History of tobacco use FORMER TOBACCO US ER 7Y OR GREATER 04/27/2014 [facility] History of tobacco use FORMER TOBACCO US ER 7Y OR GREATER 06/18/2006 [facility] Plan of Care List of future care activities from Department of Veterans 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 Additional future care activities may be listed in the Assessment and Plan section. Date/Time Care Activity Care Activity Detail Facili ty 07/26/2024 AMBULATORY - REHAB MEDICINE AMBULATORY - REHAB MEDICINE [facility] Advance Directives List of completed, amended, or rescinded Advance Directives on record at Department of Veterans 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 An actual copy of the Directive is not included. Date Advance Directive Provider Source 05/23/2003 ADVANCE DIRECTIVE [facility]
--- OUTSIDE RECORDS SUMMARY | 2024-07-12 00:24 | XMS_ITS | Clinical Summary ---
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 Active Vit B Cplx #05-EZ-I-Biot-Zi nc (Dialyvite) [phone] ow-fj-zlk-mg tablet Take 1 Tablet by mouth once daily. 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 06/02/2024 Osteomyelitis of left foot 06/02/2024 Foot ulcer due to secondary DM 06/01/2024 Cellulitis in diabetic foot 06/01/2024 Acute on chronic systolic heart failure 05/25/20 24 ACP (advance care planning) 05/25/2024 Protein-calorie malnutrition, [...] 11/04/2022 Pneumonia due to COVID-19 virus 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 10/19/2020 CKD [...] of care unspecified Overview (07/10/2006): Non Q SD 06/14 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 Overview (07/10/2006): Status [...] Encounters Date Type Department Care Team Description 07/10/2024 Plan of Care Documentation [facility] [address] [facility] [phone] 07/09/2024 11:00 AM DIRECTOR OF STAFF DEVELOPMENT Home Care Visit [facility] [address] [place] [phone] Kelsy Yi, RN SN - OASIS START OF CARE 07/09/2024 Telephone [facility] [address] [place] [phone] Kelsy Yi, community director (Need ongoing orders for home health) 07/08/2024 Home Care Visit [facility] [address] [place] [address] Danitza Strange RN CARE COORDINATION 07/07/2024 9:30 AM DIRECTOR OF STAFF DEVELOPMENT Office Visit [facility] [address] [facility] [place] [phone] Braulio Philippe, DPM Post-op (Left foot, DOS 06/05/24, 4 week post op) 07/07/2024 Travel 07/05/2024 Nurse Triage [facility] [address] [place] [address] Anna Marie Oglesby, Shortness Of Breath; Dizziness 06/28/2024 4:00 PM DIRECTOR OF STAFF DEVELOPMENT Office Visit [facility] [address] [place] [address] Sneha De La Cruz MD CV Vascular Est (4 month follow up; discuss canceled carotid intervention. U/S scheduled prior. ) 06/28/2024 3:00 PM DIRECTOR OF STAFF DEVELOPMENT - 06/28/2024 11:59 PM DIRECTOR OF STAFF DEVELOPMENT Hospital Encounter [facility] [address] [place] [address] Sneha De La Cruz MD Leistner, Joseph S, R.T. (ARRT) Bilateral carotid artery stenosis 06/28/2024 11:10 AM DIRECTOR OF STAFF DEVELOPMENT Office Visit [facility] [address] [place] [address] Zeny Medley MD Musculoskeletal Problem (R shoulder/neck pain x 1 month); Leg Pain/problem (Upper thigh pain since angiogram ) 06/28/2024 Travel 06/23/2024 1:00 PM DIRECTOR OF STAFF DEVELOPMENT Home Care Visit [facility] [address] [place] [phone] Michelle Garnica, FRANCIA SN - OASIS DISCHARGE 06/23/2024 9:45 AM DIRECTOR OF STAFF DEVELOPMENT Office Visit [facility] [address] [facility] [place] [phone] Braulio Philippe DPM Post-op (Left foot, DOS 06/05/24, 2 week post op) 06/23/2024 Travel 06/20/2024 Telephone [facility] [address] [phone] Pankaj Brownlee MD Medication Management (SPIRIVA) 06/16/2024 2:55 PM DIRECTOR OF STAFF DEVELOPMENT Office Visit [facility] [address] [place] [address] Braden Wilder MD Hospital F/U ([employer], 05/25/2024 - 06/08/2024, pneumonia ) 06/16/2024 Travel 06/14/2024 1:00 PM DIRECTOR OF STAFF DEVELOPMENT Home Care Visit [facility] [address] [place] [address] Michelle Garnica RN SN - HOME VISIT 06/13/2024 3:45 AM DIRECTOR OF STAFF DEVELOPMENT Home Care Visit [facility] [address] [place] [phone] Kristie Perera RN SN - WOUND/OSTOMY CHART CONSULT 06/11/2024 11:00 AM DIRECTOR OF STAFF DEVELOPMENT Home Care Visit [facility] [address] [place] [phone] Kelsy Yi, FRANCIA SN - OASIS START OF CARE 06/11/2024 Telephone [facility] [address] [place] [address] Kelsy Yi, community director (Need ongoing orders for home health) 06/11/2024 Plan of Care Documentation [facility] [address] [place] [phone] 06/09/2024 Home Care Visit [facility] [address] [place] [phone] Danitza Strange RN CARE COORDINATION 06/09/2024 Patient Outreach [facility] [address] [place] [address] Sharri Osei, FRANCIA Hospital F/U; Primary RN Care Management (LACE 78) 06/07/2024 Travel 06/05/2024 7:20 AM DIRECTOR OF STAFF DEVELOPMENT - 06/05/2024 8:31 AM DIRECTOR OF STAFF DEVELOPMENT Surgery [place] [address] [place] [address] Phillip Hutton, ENEDELIA LEFT PARTIAL HALLUX AMPUTATION 06/05/2024 7:12 AM DIRECTOR OF STAFF DEVELOPMENT Anesthesia Event [place] [address] [place] [address] Magalis John MD Schumacher, Donna Mae Brockman, JUDIE 06/04/2024 Orders Only [facility] [address] [place] [phone] [facility] <No scans attached> 06/04/2024 Orders Only [facility] [address] [facility] [address] [place] [phone] [facility] <No scans attached> 06/03/2024 1:41 PM DIRECTOR OF STAFF DEVELOPMENT Anesthesia Event [address] [place] [address] Dominguez Gomez MD Schulte, Whitney R, SOCIAL DIRECTOR 06/03/2024 Travel 05/31/2024 Travel 05/25/2024 4:55 AM DIRECTOR OF STAFF DEVELOPMENT - 06/08/2024 2:56 PM DIRECTOR OF STAFF DEVELOPMENT Hospital Encounter [place] [address] [place] [address] s, U Hospitalist [facility] Sheyla Chaudhry MD Thielman, Matthew Malachy, Luís Araujo MD Zamfirescu, MD Sergio Andrea, Phillip Wall DO 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); Hypotension, unspecified hypotension type Discharge Disposition: Home Health 05/25/2024 Travel 05/19/2024 1:00 PM DIRECTOR OF STAFF DEVELOPMENT Office Visit [facility] [address] [place] [address] Trey Carlson MD Wound Check (on the bottom- has had for about 6 weeks/Has been using butt cream bacitracin and other otc creams ) 05/19/2024 Travel 05/16/2024 Refill [facility] [address] [place] [address] Anna Marie Oglesby, DO Refill Request (clopidogreL (Plavix) 75 mg table//) 04/29/[address] [place] [address] Arnie Jin MD Concerns 04/19/2024 10:30 AM DIRECTOR OF STAFF DEVELOPMENT Office Visit [facility] [address] [place] [phone] Arnie Jin MD Follow Up (Surgery canceled [...] on file Legal Sex Male 5:26 AM DIRECTOR OF STAFF DEVELOPMENT Gender Identity Not on file Sexual Orientation Not on file Occupation Industry Job Start Date Job End Date retired Not on file Not on file Not on file Obstetrics History Last Filed Vital Signs Vital Sign Reading Time Taken Comments Blood Pressure 132/62 07/09/2024 11:30 AM DIRECTOR OF STAFF DEVELOPMENT Pulse 71 07/09/2024 11:25 AM DIRECTOR OF STAFF DEVELOPMENT Temperature 36.8 C (98.3 F) 07/09/2024 11:25 AM DIRECTOR OF STAFF DEVELOPMENT Respiratory Rate 18 07/09/2024 11:25 AM DIRECTOR OF STAFF DEVELOPMENT Oxygen Saturation 98% 07/09/2024 11:25 AM DIRECTOR OF STAFF DEVELOPMENT Inhaled Oxygen Concentration - - Weight 86.2 kg (190 lb) 07/09/2024 11:25 AM DIRECTOR OF STAFF DEVELOPMENT Height 182.9 cm (6') 06/11/2024 11:20 AM DIRECTOR OF STAFF DEVELOPMENT Body Mass Index 25.77 06/11/2024 11:20 AM DIRECTOR OF STAFF DEVELOPMENT Plan of Treatment Upcoming Encounters Date Type Department Care Team (Late st Contact Info) Description 07/12/2024 9:00 AM DIRECTOR OF STAFF DEVELOPMENT Home Care Visit [facility] [address] [place] [phone] 07/12/2024 1:00 PM DIRECTOR OF STAFF DEVELOPMENT Home Care Visit [facility] [address] [place] [phone] Anibal Avina, OT [address] [facility] [place] [address] 07/15/2024 4:00 AM DIRECTOR OF STAFF DEVELOPMENT Home Care Visit [facility] [address] [place] [address] Kelsy Yi, FRANCIA 07/19/2024 11:00 AM DIRECTOR OF STAFF DEVELOPMENT Office Visit [facility] [address] [place] [address] Anna Marie Oglesby, DO [address] [place] [address] 07/20/2024 2:30 PM DIRECTOR OF STAFF DEVELOPMENT Office Visit [facility] [address] [facility] [address] [place] [phone] Trang Monroy MBBS [address] [place] [address] 07/21/2024 1:00 PM DIRECTOR OF STAFF DEVELOPMENT Appointment [facility] [address] [facility] [address] [place] [address] 07/21/2024 1:45 PM DIRECTOR OF STAFF DEVELOPMENT Appointment [facility] [address] [facility] [address] [place] [address] 08/09/2024 10:30 AM DIRECTOR OF STAFF DEVELOPMENT Office Visit [facility] [address] [place] [address] Braulio Philippe DPM [address] [place] [address] 10/14/2024 Cardiac Device Check [facility] [phone] Health Maintenance Due Date Last Done Comments [...] history exists Medical Devices Implanted Type Area Assistant Speech Language Pathologist Device Identifier Shelf Expiration Date Model / Serial / Lot Screw Sm Joint 3.5x80mm Os Slf Tppng Bob - [id number] Implanted:Qty: 1 on 04/15/2015 by Rj Bui MD at [facility] Left: Leg [employer] [id number]# / / Screw Sm Joint 4x85mm Axsos Lock Slf Tppng [address] - [id number] Implanted:Qty: 1 on 04/15/2015 by Rj Bui MD at [facility] Left: Leg [employer] [id number]# / / Screw Sm Joint 3.5x75mm Os Slf Tppng Bob - [id number] Implanted:Qty: 1 on 04/15/2015 by Rj Bui MD at [facility] Left: Leg [employer] [id number]# / / Screw Sm Joint 3.5x85mm Os Slf Tppng Bob - [id number] Implanted:Qty: 1 on 04/15/2015 by Rj Bui MD at [facility] Left: Leg [employer] [id number]# / / Plate Tib Lt 10 Hole A[employer] Prox Lateral - [id number] Implanted:Qty: 1 on 04/15/2015 by Rj Bui MD at [facility] Left: Leg [employer] [id number]# / / Screw Sm Joint 3.5x28mm Os Slf Tppng Bob - [id number] Implanted:Qty: 1 on 04/15/2015 by Rj Bui MD at [facility] Left: Leg [employer] [id number]# / / Screw Sm Joint 3.5x30mm Os Slf Tppng Bob - [id number] Implanted:Qty: 1 on 04/15/2015 by Rj Bui MD at [facility] Left: Leg [employer] [id number]# / / Screw Sm Joint 3.5x32mm Os Slf Tppng Bob - [id number] Implanted:Qty: 1 on 04/15/2015 by Rj Bui MD at [facility] Left: Leg [employer] [id number]# / / Screw Sm Joint 4x26mm A[employer] Lock Slf Tppng [address] - [id number] Implanted:Qty: 1 on 04/15/2015 by Rj Bui MD at [facility] Left: Leg [employer] [id number]# / / Explanted Type Area Assistant Speech Language Pathologist Device Identifier Shelf Expiration Date Model / Serial / Lot K-Wire [employer] 10pk - [id number] Explanted:Qty: 2 on 04/15/2015 at [facility] Left: Leg [employer] [id number]# / / Procedures Procedure Name Priority Date/Time Associated Diagnosis Comments US CAROTID DUPLEX BILATERAL Routine 06/28/2024 3:35 PM DIRECTOR OF STAFF DEVELOPMENT Bilateral carotid artery stenosis GLUCOSE METER Timed 06/08/2024 8:11 AM DIRECTOR OF STAFF DEVELOPMENT SCAN-CARDIAC STRIP 06/08/2024 12 :57 AM DIRECTOR OF STAFF DEVELOPMENT GLUCOSE METER Timed 06/07/2024 9:02 PM DIRECTOR OF STAFF DEVELOPMENT SCAN-CARDIAC STRIP 06/07/2024 4: 16 PM DIRECTOR OF STAFF DEVELOPMENT PLATELET COUNT Today 06/07/2024 10:53 AM DIRECTOR OF STAFF DEVELOPMENT BASIC METABOLIC PANEL Early AM 06/07/2024 10:53 AM DIRECTOR OF STAFF DEVELOPMENT SCAN-CARDIAC STRIP 06/07/2024 10 :39 AM DIRECTOR OF STAFF DEVELOPMENT GLUCOSE METER Timed 06/07/2024 7:58 AM DIRECTOR OF STAFF DEVELOPMENT GLUCOSE METER Timed 06/06/2024 9:30 PM DIRECTOR OF STAFF DEVELOPMENT GLUCOSE METER Timed 06/06/2024 5:06 PM DIRECTOR OF STAFF DEVELOPMENT SCAN-CARDIAC STRIP 06/06/2024 4: 02 PM DIRECTOR OF STAFF DEVELOPMENT GLUCOSE METER Timed 06/06/2024 12:14 PM DIRECTOR OF STAFF DEVELOPMENT GLUCOSE METER Timed 06/06/2024 8:20 AM DIRECTOR OF STAFF DEVELOPMENT SCAN-CARDIAC STRIP 06/05/2024 4: 51 PM DIRECTOR OF STAFF DEVELOPMENT GLUCOSE METER Timed 06/05/2024 4:26 PM DIRECTOR OF STAFF DEVELOPMENT CT HEAD BRAIN WO STAT 06/05/2024 4:00 PM DIRECTOR OF STAFF DEVELOPMENT SCAN-CARDIAC STRIP 06/05/2024 2: 52 PM DIRECTOR OF STAFF DEVELOPMENT SCAN-CARDIAC STRIP 06/05/2024 2: 52 PM DIRECTOR OF STAFF DEVELOPMENT XR FOOT 3 VIEWS LEFT PORTABLE Routine 06/05/2024 8:56 AM DIRECTOR OF STAFF DEVELOPMENT TISSUE CULTURE, STAIN (AEROBIC) Today 06/05/2024 7:42 AM DIRECTOR OF STAFF DEVELOPMENT ANAEROBIC CULTURE Today 06/05/2024 7:4 2 AM DIRECTOR OF STAFF DEVELOPMENT PATH TISSUE EXAM Today 06/05/2024 7:40 AM DIRECTOR OF STAFF DEVELOPMENT GLUCOSE METER Timed 06/05/2024 7:11 AM DIRECTOR OF STAFF DEVELOPMENT AMPUTATION TOE 06/05/2024 7:02 AM DIRECTOR OF STAFF DEVELOPMENT LEFT HALLUX INFECTION Case Notes SAGITTAL SAW GLUCOSE METER Timed 06/04/2024 10:57 PM DIRECTOR OF STAFF DEVELOPMENT SCAN-CARDIAC STRIP 06/04/2024 8: 40 PM DIRECTOR OF STAFF DEVELOPMENT SCAN-CARDIAC STRIP 06/04/2024 8: 40 PM DIRECTOR OF STAFF DEVELOPMENT GLUCOSE METER Timed 06/04/2024 4:52 PM DIRECTOR OF STAFF DEVELOPMENT BASIC METABOLIC PANEL Today 06/04/2024 9:54 AM DIRECTOR OF STAFF DEVELOPMENT GLUCOSE METER Timed 06/04/2024 8:37 AM DIRECTOR OF STAFF DEVELOPMENT SCAN-CARDIAC STRIP 06/04/2024 8: 15 AM DIRECTOR OF STAFF DEVELOPMENT SCAN-CARDIAC STRIP 06/04/2024 2: 25 AM DIRECTOR OF STAFF DEVELOPMENT HEMOGLOBIN STAT 06/03/2024 8:05 PM DIRECTOR OF STAFF DEVELOPMENT BASIC METABOLIC PANEL Today 06/03/2024 8:05 PM DIRECTOR OF STAFF DEVELOPMENT GLUCOSE METER Timed 06/03/2024 7:36 PM DIRECTOR OF STAFF DEVELOPMENT HCHG ACTIVATED CLOTTING TM CV Timed 06/03/2024 3:09 PM DIRECTOR OF STAFF DEVELOPMENT HCHG ACTIVATED CLOTTING TM CV Timed 06/03/2024 2:38 PM DIRECTOR OF STAFF DEVELOPMENT GLUCOSE METER Timed 06/03/2024 12:30 PM DIRECTOR OF STAFF DEVELOPMENT CBC W PLT NO DIFF Early AM 06/03/2024 9:5 9 AM DIRECTOR OF STAFF DEVELOPMENT SCAN-CARDIAC STRIP 06/03/2024 9: 43 AM DIRECTOR OF STAFF DEVELOPMENT GLUCOSE METER Timed 06/03/2024 8:12 AM DIRECTOR OF STAFF DEVELOPMENT GLUCOSE METER Timed 06/02/2024 9:05 PM DIRECTOR OF STAFF DEVELOPMENT IR PICC LINE Routine 06/02/2024 3:26 PM DIRECTOR OF STAFF DEVELOPMENT GLUCOSE METER Timed 06/02/2024 1:39 PM DIRECTOR OF STAFF DEVELOPMENT MR FOOT LEFT WO Routine 06/02/2024 11:30 AM DIRECTOR OF STAFF DEVELOPMENT SCAN-CARDIAC STRIP 06/02/2024 9: 44 AM DIRECTOR OF STAFF DEVELOPMENT GLUCOSE METER Timed 06/02/2024 7:59 AM DIRECTOR OF STAFF DEVELOPMENT GLUCOSE METER Timed 06/02/2024 6:58 AM DIRECTOR OF STAFF DEVELOPMENT HEMOGLOBIN Early AM 06/02/2024 6:15 AM DIRECTOR OF STAFF DEVELOPMENT WHITE BLOOD COUNT Early AM 06/02/2024 6:1 5 AM DIRECTOR OF STAFF DEVELOPMENT BASIC METABOLIC PANEL Early AM 06/02/2024 6:15 AM DIRECTOR OF STAFF DEVELOPMENT GLUCOSE METER Timed 06/01/2024 10:09 PM DIRECTOR OF STAFF DEVELOPMENT US ARTERIAL LOWER EXTREMITY W RITA BILATERAL Routine 06/01/2024 8:15 PM DIRECTOR OF STAFF DEVELOPMENT GLUCOSE METER Timed 06/01/2024 5:09 PM DIRECTOR OF STAFF DEVELOPMENT GLUCOSE METER Timed 06/01/2024 8:28 AM DIRECTOR OF STAFF DEVELOPMENT SCAN-CARDIAC STRIP 06/01/2024 7: 51 AM DIRECTOR OF STAFF DEVELOPMENT VANCOMYCIN Early AM 06/01/2024 6:29 AM DIRECTOR OF STAFF DEVELOPMENT HEMOGLOBIN Early AM 06/01/2024 6:29 AM DIRECTOR OF STAFF DEVELOPMENT WHITE BLOOD COUNT Early AM 06/01/2024 6:2 9 AM DIRECTOR OF STAFF DEVELOPMENT BASIC METABOLIC PANEL Early AM 06/01/2024 6:29 AM DIRECTOR OF STAFF DEVELOPMENT GLUCOSE METER Timed 05/31/2024 11:03 PM DIRECTOR OF STAFF DEVELOPMENT GLUCOSE METER Timed 05/31/2024 6:20 PM DIRECTOR OF STAFF DEVELOPMENT ANAEROBIC CULTURE Today 05/31/2024 4:3 3 PM DIRECTOR OF STAFF DEVELOPMENT AEROBIC BACTERIAL CULTURE, STAIN Today 05/31/2024 4:33 PM DIRECTOR OF STAFF DEVELOPMENT XR FOOT 3 VIEWS LEFT SUZI 05/31/2024 1:53 PM DIRECTOR OF STAFF DEVELOPMENT ECHO TTE COMPLETE WO CONTRAST Routine 05/31/2024 12:49 PM DIRECTOR OF STAFF DEVELOPMENT GLUCOSE METER Timed 05/31/2024 11:55 AM DIRECTOR OF STAFF DEVELOPMENT GLUCOSE METER Timed 05/31/2024 8:57 AM DIRECTOR OF STAFF DEVELOPMENT SCAN-CARDIAC STRIP 05/31/2024 7: 47 AM DIRECTOR OF STAFF DEVELOPMENT HEMOGLOBIN A1C SUZI 05/31/2024 7:21 AM DIRECTOR OF STAFF DEVELOPMENT PLATELET COUNT SUZI 05/31/2024 7:21 AM DIRECTOR OF STAFF DEVELOPMENT MAGNESIUM Add On 05/31/2024 7:21 AM DIRECTOR OF STAFF DEVELOPMENT HEMOGLOBIN Early AM 05/31/2024 7:21 AM DIRECTOR OF STAFF DEVELOPMENT WHITE BLOOD COUNT Early AM 05/31/2024 7:2 1 AM DIRECTOR OF STAFF DEVELOPMENT BASIC METABOLIC PANEL Early AM 05/31/2024 7:21 AM DIRECTOR OF STAFF DEVELOPMENT GLUCOSE METER Timed 05/30/2024 5:15 PM DIRECTOR OF STAFF DEVELOPMENT SCAN-CARDIAC STRIP 05/30/2024 4: 52 PM DIRECTOR OF STAFF DEVELOPMENT GLUCOSE METER Timed 05/30/2024 1:04 PM DIRECTOR OF STAFF DEVELOPMENT SCAN CORRESP-IMAGING 05/30/2024 12:50 PM DIRECTOR OF STAFF DEVELOPMENT SCAN CORRESP-EKG RESULTS 05/30/2024 12:28 PM DIRECTOR OF STAFF DEVELOPMENT HEMOGLOBIN Early AM 05/30/2024 8:42 AM DIRECTOR OF STAFF DEVELOPMENT WHITE BLOOD COUNT Early AM 05/30/2024 8:4 2 AM DIRECTOR OF STAFF DEVELOPMENT BASIC METABOLIC PANEL Early AM 05/30/2024 8:42 AM DIRECTOR OF STAFF DEVELOPMENT GLUCOSE METER Timed 05/30/2024 8:09 AM DIRECTOR OF STAFF DEVELOPMENT SCAN-CARDIAC STRIP 05/30/2024 7: 29 AM DIRECTOR OF STAFF DEVELOPMENT GLUCOSE METER Timed 05/29/2024 8:40 PM DIRECTOR OF STAFF DEVELOPMENT GLUCOSE METER Timed 05/29/2024 5:02 PM DIRECTOR OF STAFF DEVELOPMENT GLUCOSE METER Timed 05/29/2024 11:58 AM DIRECTOR OF STAFF DEVELOPMENT SCAN-CARDIAC STRIP 05/29/2024 8: 32 AM DIRECTOR OF STAFF DEVELOPMENT GLUCOSE METER Timed 05/29/2024 7:50 AM DIRECTOR OF STAFF DEVELOPMENT PRO-BNP SUZI 05/29/2024 5:14 AM DIRECTOR OF STAFF DEVELOPMENT HEMOGLOBIN Early AM 05/29/2024 5:14 AM DIRECTOR OF STAFF DEVELOPMENT WHITE BLOOD COUNT Early AM 05/29/2024 5:1 4 AM DIRECTOR OF STAFF DEVELOPMENT BASIC METABOLIC PANEL Early AM 05/29/2024 5:14 AM DIRECTOR OF STAFF DEVELOPMENT GLUCOSE METER Timed 05/28/2024 9:44 PM DIRECTOR OF STAFF DEVELOPMENT GLUCOSE METER Timed 05/28/2024 6:12 PM DIRECTOR OF STAFF DEVELOPMENT GLUCOSE METER Timed 05/28/2024 1:01 PM DIRECTOR OF STAFF DEVELOPMENT SCAN-CARDIAC STRIP 05/28/2024 11 :31 AM DIRECTOR OF STAFF DEVELOPMENT GLUCOSE METER Timed 05/28/2024 9:07 AM DIRECTOR OF STAFF DEVELOPMENT ELECTROLYTE PANEL Early AM 05/28/2024 5:0 2 AM DIRECTOR OF STAFF DEVELOPMENT CBC W PLT NO DIFF Early AM 05/28/2024 5:0 2 AM DIRECTOR OF STAFF DEVELOPMENT GLUCOSE METER Timed 05/27/2024 4:42 PM DIRECTOR OF STAFF DEVELOPMENT XR CHEST 1 VIEW PORTABLE STAT 05/27/2024 4:40 PM DIRECTOR OF STAFF DEVELOPMENT GLUCOSE METER Timed 05/27/2024 12:17 PM DIRECTOR OF STAFF DEVELOPMENT SCAN-CARDIAC STRIP 05/27/2024 11 :15 AM DIRECTOR OF STAFF DEVELOPMENT GLUCOSE METER Timed 05/26/2024 9:40 PM DIRECTOR OF STAFF DEVELOPMENT GLUCOSE METER Timed 05/26/2024 4:52 PM DIRECTOR OF STAFF DEVELOPMENT GLUCOSE METER Timed 05/26/2024 11:24 AM DIRECTOR OF STAFF DEVELOPMENT SCAN-CARDIAC STRIP 05/26/2024 10 :29 AM DIRECTOR OF STAFF DEVELOPMENT GLUCOSE METER Timed 05/26/2024 8:57 AM DIRECTOR OF STAFF DEVELOPMENT GLUCOSE METER Timed 05/25/2024 5:44 PM DIRECTOR OF STAFF DEVELOPMENT SCAN-CARDIAC STRIP 05/25/2024 9: 28 AM DIRECTOR OF STAFF DEVELOPMENT GLUCOSE METER Timed 05/25/2024 8:23 AM DIRECTOR OF STAFF DEVELOPMENT TROPONIN T (HS) ONE TIME Timed 05/25/2024 7:26 AM DIRECTOR OF STAFF DEVELOPMENT SCAN-CARDIAC STRIP 05/25/2024 5: 46 AM DIRECTOR OF STAFF DEVELOPMENT PRO-BNP Today 05/25/2024 5:37 AM DIRECTOR OF STAFF DEVELOPMENT TROPONIN T (HS) ACUTE W/2HR REFLEX STAT 05/25/2024 5:37 AM DIRECTOR OF STAFF DEVELOPMENT PROCALCITONIN Today 05/25/2024 5:37 AM DIRECTOR OF STAFF DEVELOPMENT BASIC METABOLIC PANEL Today 05/25/2024 5:37 AM DIRECTOR OF STAFF DEVELOPMENT CBC W PLT NO DIFF Today 05/25/2024 5:2 3 AM DIRECTOR OF STAFF DEVELOPMENT from Last 3 Months Results * US CAROTID DUPLEX BILATERAL (06/28/2024 3:35 PM DIRECTOR OF STAFF DEVELOPMENT) Anatomical Region Laterality Modality CAROTID, NECK Ultrasound 06/28/2024 3:10 PM DIRECTOR OF STAFF DEVELOPMENT Narrative 06/29/2024 8:31 AM DIRECTOR OF STAFF DEVELOPMENT VASCULAR ULTRASOUND REPORT KOREY SERRANO : 1940 Study Date: 06/28/2024 3:10:36 PM Age: 84 years Tech: JA Gender: M Referring MD: SNEHA DE LA CRUZ Site: [facility] Vascular Center Study performed: Carotid Indication for [...] Accreditation Commission (IAC/Vascular), [email or web address] Report generated by [employer]. Final Procedure Note Gary Petersen MD - 06/29/2024 VASCULAR ULTRASOUND REPORT KOREY SRERANO : 1940 Study Date: 06/28/2024 3:10:36 PM Age: 84 years Tech: JA Gender: M Referring MD: SNEHA DE LA CRUZ Site: [facility] Vascular Center Study performed: Carotid Indication for [...] theIntersocietal Accreditation Commission (IAC/Vascular),[email or web address] Report generated by [employer]. Final us Sneha De La Cruz MD Final R esult * (ABNORMAL) GLUCOSE METER (06/08/2024 8:11 AM DIRECTOR OF STAFF DEVELOPMENT) Only the most recent of45 resultswithin the time period is included. [facility] Signature GLUCOSE METER 150(H) 65 - 100 mg/dL 06/08/2024 8:20 AM DIRECTOR OF STAFF DEVELOPMENT [facility] Blood BLOOD SPECIMEN / Unknown 06/08/2024 8:11 AM DIRECTOR OF STAFF DEVELOPMENT 06/08/2024 8:20 AM DIRECTOR OF STAFF DEVELOPMENT us Phillip Hill DO CHEMISTRY Aleah l Result [facility] [place] [address]IP [phone] [place] [address] * SCAN-CARDIAC STRIP (06/08/2024 12:57 AM DIRECTOR OF STAFF DEVELOPMENT) us Scanner OTHER Final Result * SCAN-CARDIAC STRIP (06/07/2024 4:16 PM DIRECTOR OF STAFF DEVELOPMENT) us Scanner OTHER Final Result * PLATELET COUNT (06/07/2024 10:53 AM [facility]) Only the most recent of2 resultswithin the time period is included. PLATELET COUNT 169 140 - 440 thou/cu mm 06/07/2024 11:07 AM [facility] MPV 10.0 6.5 - 11.0 fL 06/07/2024 11:07 AM [facility] Blood BLOOD SPECIMEN / Unknown Non-Lab Venipuncture / Unknown 06/07/2024 10:53 AM DIRECTOR OF STAFF DEVELOPMENT 06/07/2024 11:04 AM [facility] us Sheyla Chaudhry MD HEMATOLOGY Final Re sult [facility] SENDOUT INTERNAL ZIP [phone] [place] [address] * (ABNORMAL) BASIC METABOLIC PANEL (06/07/2024 10:53 AM [facility]) Only the most recent of9 resultswithin the time period is included. SODIUM 135(L) 136 - 145 mmol/L 06/07/2024 11:25 AM [facility] POTASSIUM 4.1 3.5 - 5.1 mmol/L 06/07/2024 11:25 AM [facility] CHLORIDE 96(L) 98 - 107 mmol/L 06/07/2024 11:25 AM [facility] CO2,TOTAL 28 22 - 29 mmol/L 06/07/2024 11:25 AM [facility] ANION GAP 11 5 - 18 06/07/2024 11:25 AM [facility] GLUCOSE 111(H) 70 - 99 mg/dL 06/07/2024 11:25 AM [facility] CALCIUM 8.8 8.8 - 10.4 mg/dL 06/07/2024 11:25 AM [facility] Comment: Reference ranges for this test were updated on 04/12/2024 to reflect our healthy population more accurately. Reference range changes are not retroactively applied to results, but previous results using the same methodology can be interpreted in the context of the new reference range. BUN 35(H) 8 - 23 mg/dL 06/07/2024 11:25 AM [facility] CREATININE 4.83(H) 0.70 - 1.20 mg/dL 06/07/2024 11:25 AM DIRECTOR OF STAFF DEVELOPMENT [facility] BUN/CREAT RATIO 7(L) 10 - 20 11:25 AM DIRECTOR OF STAFF DEVELOPMENT [facility] eGFR 11(L) >90 mL/min/1. 73m2 06/07/2024 11:25 AM DIRECTOR OF STAFF DEVELOPMENT [facility] Comment:As of 2021, eG FR is calculated by the CKD-EPI creatinine equation without race adjustment. eGFR can be influenced by muscle mass, exercise, and diet. The reported eGFR is an estimation only and is only applicable if the renal function is stable. Blood BLOOD SPECIMEN / Unknown Non-Lab Venipuncture / Unknown 06/07/2024 10:53 AM DIRECTOR OF STAFF DEVELOPMENT 06/07/2024 11:04 AM DIRECTOR OF STAFF DEVELOPMENT us Phillip Pack DO CHEMISTRY Final Resul t [facility] SENDOUT INTERNAL [facility] [id number] [address] [place] [address] * SCAN-CARDIAC STRIP (06/07/2024 10:39 AM DIRECTOR OF STAFF DEVELOPMENT) us Scanner OTHER Final Result * SCAN-CARDIAC STRIP (06/06/2024 4:02 PM DIRECTOR OF STAFF DEVELOPMENT) us Scanner OTHER Final Result * SCAN-CARDIAC STRIP (06/05/2024 4:51 PM DIRECTOR OF STAFF DEVELOPMENT) us Scanner OTHER Final Result * CT HEAD BRAIN WO (06/05/2024 4:00 PM DIRECTOR OF STAFF DEVELOPMENT) Anatomical Region Laterality Modality HEAD, BRAIN Computed Tomogra phy 06/05/2024 4:00 PM DIRECTOR OF STAFF DEVELOPMENT Impressions 06/05/2024 4:51 PM DIRECTOR OF STAFF DEVELOPMENT 1. No CT evidence for acute intracranial process. 2. Brain atrophy and presumed chronic microvascular ischemic changes as above. Narrative 06/05/2024 4:51 PM DIRECTOR OF STAFF DEVELOPMENT For Patients: As a result of the 21st Century Cures Act, medical imaging exams and procedure reports are released immediately into your electronic medical record. You may view this report before your referring provider. If you have questions, please contact your health care provider. EXAM: CT HEAD BRAIN WO LOCATION: [facility] DATE: 06/05/2024 INDICATION: Mental [...] provider. EXAM: CT HEAD BRAIN WO LOCATION: [facility] DATE: 06/05/2024 INDICATION: Mental [...] esult * SCAN-CARDIAC STRIP (06/05/2024 2:52 PM DIRECTOR OF STAFF DEVELOPMENT) us Scanner OTHER Final Result * SCAN-CARDIAC STRIP (06/05/2024 2:52 PM DIRECTOR OF STAFF DEVELOPMENT) us Scanner OTHER Final Result * XR Foot 3 Views Left Portable- Non-Weight Bearing (06/05/2024 8:56 AM DIRECTOR OF STAFF DEVELOPMENT) Anatomical Region Laterality Modality FEET, FOOT L Computed Radiogr aphy 06/05/2024 8:56 AM DIRECTOR OF STAFF DEVELOPMENT Impressions 06/05/2024 9:34 AM DIRECTOR OF STAFF DEVELOPMENT Interval amputation right great toe at the level of the base of the proximal phalanx. No new bony erosive change to suggest osteomyelitis. 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 Osteopenia. No acute fracture. Arteriovascular calcifications. Narrative 06/05/2024 9:34 AM DIRECTOR OF STAFF DEVELOPMENT For Patients: As a result of the Cures Act, medical imaging exams and procedure reports are released immediately into your electronic medical record. You may view this report before your referring provider. If you have questions, please contact your health care provider. EXAM: XR FOOT 3 VIEWS LEFT PORTABLE LOCATION: [facility] DATE: 06/05/2024 INDICATION: Interval left [...] TISSUE CULTURE, STAIN (AEROBIC) (06/05/2024 7:42 AM DIRECTOR OF STAFF DEVELOPMENT) CULTURE RESULT(A) 06/08/2024 9:33 AM DIRECTOR OF STAFF DEVELOPMENT [facility]- NTRAL LABORATORY CULTURE 1+ Staphylococcus aureus 06/08/2024 9:33 AM DIRECTOR OF STAFF DEVELOPMENT [facility] LAB[facility] GRAM STAIN 1+ PMNs 06/08/2024 9:33 AM DIRECTOR OF STAFF DEVELOPMENT [facility] GRAM STAIN No Epithelial cells 06/08/2024 9:33 AM DIRECTOR OF STAFF DEVELOPMENT [facility] GRAM STAIN 1+ RBCs 06/08/2024 9:33 AM DIRECTOR OF STAFF DEVELOPMENT [facility] GRAM STAIN No organisms seen 025 9:33 AM DIRECTOR OF STAFF DEVELOPMENT [facility] GRAM STAIN Gram stain performed by [place] 06/08/2024 9:33 AM DIRECTOR OF STAFF DEVELOPMENT [facility] Bone (Left Great Toe) Non-Blood / Unknown 06/05/2024 7:42 AM DIRECTOR OF STAFF DEVELOPMENT 06/05/2024 8:36 AM DIRECTOR OF STAFF DEVELOPMENT Narrative Organism Antibiotic Method Susceptibility Staphylococcus aureus OXACILLIN <=0.25: S Comment:Oxacillin wetzel sceptible should not be interpreted as penicillin or amoxicillin susceptible. Staphylococcus aureus CLINDAMYCIN 0.25: S Staphylococcus aureus DOXYCYCLINE <=0.5: S Staphylococcus aureus CEFAZOLIN S Staphylococcus aureus TRIMETHOPRIM/SULF <=0.5/9.5: S Phillip Hutton [facility] MICROBIOLOGY Final Resul t [facility] [address] [place] [address], [facility] SENDOUT INTERNAL ZIP [phone] [place] [address] * ANAEROBIC CULTURE (06/05/2024 7:42 AM DIRECTOR OF STAFF DEVELOPMENT) Only the most recent of2 resultswithin the time period is included. CULTURE No anaerobes isolated 06/10/2024 10:03 AM DIRECTOR OF STAFF DEVELOPMENT [facility]-SIM TRAL LABORATORY Bone (Left Great Toe) Non-Blood / Unknown 06/05/2024 7:42 AM DIRECTOR OF STAFF DEVELOPMENT 06/05/2024 8:36 AM DIRECTOR OF STAFF DEVELOPMENT us Phillip Hutton DPM MICROBIOLOGY Final Resul t [facility] [address] [place] [address], [place] * PATH TISSUE EXAM (06/05/2024 7:40 AM DIRECTOR OF STAFF DEVELOPMENT) Case Report Pathology Report Case: [id number] Authorizing Provider: Phillip Hutton DPM Collected: 06/05/2024 0740 Ordering Location: [facility] Received: 06/06/2024 0741 Pathologist: Zohra Lou DO Specimen: Left Great Toe, LEFT GREAT HALLUX 06/09/2024 11:27 AM DIRECTOR OF STAFF DEVELOPMENT [facility]AL LABORATORY Final Diagnosis A) FOOT, LEFT, GREAT TOE/HALLUX, AMPUTATION: 1. Focally acute and chronic osteomyelitis 2. Overlying gangrenous ulceration is present 3. Presumed proximal bone margin is negative for osteomyelitis (see comment) 4. Negative for malignancy 06/09/2024 11:27 AM [facility] Comment The specimen in this case was submitted in multiple fragments, and the bone margin was not separately submitted or designated specifically. Gross examination reveals one bone fragment with a flattened surface which is presumed to be the true margin, and this fragment is negative for osteomyelitis. 06/09/2024 11:27 AM [facility] Clinical Information Mr. Serrano is a 84 y.o. who has a history of diabetes mellitus, chronic kidney disease, peripheral arterial disease and left lower extremity wounds with suspected osteomyelitis of the distal and proximal phalanx of the left great toe. The patient underwent partial hallux amputation of the left foot. 06/09/2024 11:27 AM [facility] Gross Description A) Received in [...] on cut surface. No lesion is identified. Drug Counselor sections are submitted: 1. Great toe: skin ulcer to nearest margin and bone underlying ulcer (decal) 2-3. Two pieces of flattened bone fragments: Presumed en face bony margin in 2 (decal) 4. Fibrotic soft tissue TTP 06/06/2024 06/09/2024 11:27 AM DIRECTOR OF STAFF DEVELOPMENT [facility]- ENTRMD LABORATORY Microscopic Description The final diagnosis is based on microscopic examination of appropriate sections of all specimens. 06/09/2024 11:27 AM DIRECTOR OF STAFF DEVELOPMENT [facility] Additional Information Interpreted at [facility], Central Laboratory - [address] [address] 06/09/2024 11:27 AM DIRECTOR OF STAFF DEVELOPMENT [facility]- ENTRAL LABORATORY Tissue (Left Great Toe) 06/05/2024 7:40 AM DIRECTOR OF STAFF DEVELOPMENT 06/06/2024 7:41 AM DIRECTOR OF STAFF DEVELOPMENT us Phillip Hutton DPStefany PATHOLOGY/CYTOLOGY Final Re sult [facility] [address] [place] [address], [facility] SENDOUT INTERNAL ZIP [phone] [place] [phone] * SCAN-CARDIAC STRIP (06/04/2024 8:40 PM DIRECTOR OF STAFF DEVELOPMENT) us Scanner OTHER Final Result * SCAN-CARDIAC STRIP (06/04/2024 8:40 PM DIRECTOR OF STAFF DEVELOPMENT) us Scanner OTHER Final Result * SCAN-CARDIAC STRIP (06/04/2024 8:15 AM DIRECTOR OF STAFF DEVELOPMENT) us Scanner OTHER Final Result * SCAN-CARDIAC STRIP (06/04/2024 2:25 AM DIRECTOR OF STAFF DEVELOPMENT) us Scanner OTHER Final Result * (ABNORMAL) Hemoglobin - STRETCHER LEVELER OPERATOR HELPER (06/03/2024 8:05 PM DIRECTOR OF STAFF DEVELOPMENT) Only the most recent of6 resultswithin the time period is included. HEMOGLOBIN 8.0(L) 13.5 - 17.5 g/dL 06/03/2024 8:18 PM DIRECTOR OF STAFF DEVELOPMENT [facility] MCV 93 80 - 100 fL 06/03/2024 8:18 PM DIRECTOR OF STAFF DEVELOPMENT [facility] Blood BLOOD SPECIMEN / Unknown Line/Port / Unknown 06/03/2024 8:05 PM DIRECTOR OF STAFF DEVELOPMENT 06/03/2024 8:12 PM DIRECTOR OF STAFF DEVELOPMENT Narrative [facility] - 06/03/2024 8:18 PM DIRECTOR OF STAFF DEVELOPMENT For chest pain, tachycardia, or hypotension present. us Emily Montes De Oca MD HEMATOLOGY Final R esult [facility] SENDOUT INTERNAL ZIP [phone] [place] [address] * (ABNORMAL) ACTIVATED CLOTTING TIME [id number] ACT (06/03/2024 3:09 PM DIRECTOR OF STAFF DEVELOPMENT) Only the most recent of2 resultswithin the time period is included. ACTIVATED CLOTTING TIME, POCT 211(H) 74 - 125 sec 06/03/2024 3:33 PM DIRECTOR OF STAFF DEVELOPMENT [facility] Blood BLOOD SPECIMEN / Unknown 06/03/2024 3:09 PM DIRECTOR OF STAFF DEVELOPMENT 06/03/2024 3:33 PM DIRECTOR OF STAFF DEVELOPMENT us Emily Montes De Oca MD HEMATOLOGY Final R esult [facility] SENDOUT INTERNAL ZIP [phone] [place] [address] * (ABNORMAL) CBC W PLT NO DIFF (06/03/2024 9:59 AM DIRECTOR OF STAFF DEVELOPMENT) Only the most recent of3 resultswithin the time period is included. WHITE BLOOD COUNT 5.1 4.5 - 11.0 thou/cu mm 06/03/2024 10:14 AM [facility] RED BLOOD COUNT 2.39(L) 4.30 - 5.90 mil/cu mm 06/03/2024 10:14 AM [facility] HEMOGLOBIN 7.6(L) 13.5 - 17.5 g/dL 06/03/2024 10:14 AM [facility] HEMATOCRIT 22.1(L) 37.0 - 53.0 % 06/03/2024 10:14 AM [facility] MCV 93 80 - 100 fL 06/03/2024 10:14 AM [facility] MCH 31.8 26.0 - 34.0 pg 06/03/2024 10:14 AM [facility] MCHC 34.4 32.0 - 36.0 g/dL 06/03/2024 10:14 AM [facility] RDW 14.0 11.5 - 15.5 % 06/03/2024 10:14 AM [facility] PLATELET COUNT 165 140 - 440 thou/cu mm 06/03/2024 10:14 AM [facility] MPV 10.6 6.5 - 11.0 fL 06/03/2024 10:14 AM [facility] NRBC 0.0 % 06/03/2024 10:14 AM [facility] ABS NRBC 0.0 thou /cu mm 06/03/2024 10:14 AM [facility] Blood BLOOD SPECIMEN / Unknown Butterfly / Unknown 06/03/2024 9:59 AM DIRECTOR OF STAFF DEVELOPMENT 06/03/2024 10:06 AM [facility] Elier ESTRELLA HEMATOLOGY Final Resu lt [facility] SENDOUT INTERNAL ZIP [phone] [place] [address] * SCAN-CARDIAC STRIP (06/03/2024 9:43 AM DIRECTOR OF STAFF DEVELOPMENT) us Scanner OTHER Final Result * IR PICC LINE (06/02/2024 3:26 PM DIRECTOR OF STAFF DEVELOPMENT) Anatomical Region Laterality Modality X-Ray Angiograph y, Other, Other 06/02/2024 3:26 PM DIRECTOR OF STAFF DEVELOPMENT Impressions 06/02/2024 4:05 PM DIRECTOR OF STAFF DEVELOPMENT Successful placement of PICC line. Narrative 06/02/2024 4:05 PM DIRECTOR OF STAFF DEVELOPMENT For Patients: As a result of the Cures Act, medical imaging exams and procedure reports are released immediately into your electronic medical record. You may view this report before your referring provider. If you have questions, please contact your health care provider. [facility] LOCATION: [facility] DATE: 06/02/2024 PROCEDURE: PERIPHERALLY [...] Prior to the procedure, the surgeon and medical staff assistant performed hand hygiene and wore hat, [...] brachial vein was accessed and a 5 Wallisian, 38 cm, double-lumen power PICC Solo peripherally [...] questions, please contact your health care provider. [facility] LOCATION: [facility] DATE: 06/02/2024 PROCEDURE: PERIPHERALLY [...] drape. Prior to the procedure, thesurgeon and medical staff assistant performed hand hygiene and wore hat, [...] brachial vein was accessed and a 5 Wallisian, 38 cm, double-lumenpower PICC Solo peripherally inserted [...] MR FOOT LEFT WO (06/02/2024 11:30 AM DIRECTOR OF STAFF DEVELOPMENT) Anatomical Region Laterality Modality FOOT L Magnetic Resonan ce, Other 06/02/2024 11:3 0 AM DIRECTOR OF STAFF DEVELOPMENT Impressions 06/02/2024 11:56 AM DIRECTOR OF STAFF DEVELOPMENT 1. Soft tissue ulceration at the dorsal [...] radiopaque foreign body. Narrative 06/02/2024 11:56 AM DIRECTOR OF STAFF DEVELOPMENT For Patients: As a result of the Century Cures Act, medical imaging exams and procedure reports are released immediately into your electronic medical record. You may view this report before your referring provider. If you have questions, please contact your health care provider. EXAM: MR FOOT LEFT WO LOCATION: [facility] DATE: 06/02/2024 INDICATION: Ulcer, [...] provider. EXAM: MR FOOT LEFT WO LOCATION: [facility] DATE: 06/02/2024 INDICATION: Ulcer, [...] patients for small radiopaqueforeign body. us Francisca Abel TEST BORING CREW CHIEF MR Final Result * SCAN-CARDIAC STRIP (06/02/2024 9:44 AM DIRECTOR OF STAFF DEVELOPMENT) us Scanner OTHER Final Result * WHITE BLOOD COUNT (06/02/2024 6:15 AM DIRECTOR OF STAFF DEVELOPMENT) Only the most recent of5 resultswithin the time period is included. WHITE BLOOD COUNT 5.2 4.5 - 11.0 thou/cu mm 06/02/2024 6:33 AM DIRECTOR OF STAFF DEVELOPMENT [facility] NRBC 0.0 % 06/02/2024 6:33 AM DIRECTOR OF STAFF DEVELOPMENT [facility] ABS NRBC 0.0 thou /cu mm 06/02/2024 6:33 AM DIRECTOR OF STAFF DEVELOPMENT [facility] Blood BLOOD SPECIMEN / Unknown Non-Lab Venipuncture / Unknown 06/02/2024 6:15 AM DIRECTOR OF STAFF DEVELOPMENT 06/02/2024 6:26 AM DIRECTOR OF STAFF DEVELOPMENT us Luís Porter MD HEMATOLOGY Fi nal Result [facility] SENDOUT INTERNAL ZIP [phone] [place] [address] * US ARTERIAL LOWER EXTREMITY W RITA BILATERAL (06/01/2024 8:15 PM DIRECTOR OF STAFF DEVELOPMENT) Anatomical Region Laterality Modality LEGS Ultrasound 06/01/2024 8:15 PM DIRECTOR OF STAFF DEVELOPMENT Impressions 06/01/2024 8:45 PM DIRECTOR OF STAFF DEVELOPMENT 1. RIGHT LOWER EXTREMITY: Non calculable RITA [...] stenosis is visualized. Narrative 06/01/2024 8:45 PM DIRECTOR OF STAFF DEVELOPMENT For Patients: As a result of the Century Cures Act, medical imaging exams and procedure reports are released immediately into your electronic medical record. You may view this report before your referring provider. If you have questions, please contact your health care provider. EXAM: 1. RESTING ANKLE-BRACHIAL INDICES (ABIs) 2. DUPLEX ARTERIAL ULTRASOUND OF THE LOWER EXTREMITIES BILATERALLY LOCATION: [facility] DATE: 06/01/2024 INDICATION: Decreased [...] Velocities described below. RIGHT LOWER EXTREMITY (cm/s): AIRCRAFT DESIGN ENGINEER: 88, T PFA: 209, T SFA (proximal): 117, T SFA (mid): 262, B SFA (distal): 73, B Pop A Prox: 35, B Pop A Dist: 45, B FIELD MECHANIC Dist: 101, B SULTANA: No significant flow. DPA: No significant flow. (M=monophasic, B=biphasic, T=triphasic) LEFT LOWER EXTREMITY (cm/s): AIRCRAFT DESIGN ENGINEER: 95, T PFA: 205, T SFA (proximal): 149, T SFA (mid): 111, T SFA (distal): 132, T Pop A Prox: 76, B Pop A Dist: 60, M FIELD MECHANIC Dist: 45, M SULTANA: No significant flow. [...] ULTRASOUND OF THE LOWER EXTREMITIES BILATERALLY LOCATION: [facility] DATE: 06/01/2024 INDICATION: Decreased [...] Velocities described below. RIGHT LOWER EXTREMITY (cm/s): AIRCRAFT DESIGN ENGINEER: 88, T PFA: 209, T SFA (proximal): 117, T SFA (mid): 262, B SFA (distal): 73, B Pop A Prox: 35, B Pop A Dist: 45, B FIELD MECHANIC Dist: 101, B SULTANA: No significant flow. DPA: No significant flow. (M=monophasic, B=biphasic, T=triphasic) LEFT LOWER EXTREMITY (cm/s): AIRCRAFT DESIGN ENGINEER: 95, T PFA: 205, T SFA (proximal): 149, T SFA (mid): 111, T SFA (distal): 132, T Pop A Prox: 76, B Pop A Dist: 60, M FIELD MECHANIC Dist: 45, M SULTANA: No significant flow. [...] Result * SCAN-CARDIAC STRIP (06/01/2024 7:51 AM DIRECTOR OF STAFF DEVELOPMENT) us Scanner OTHER Final Result * VANCOMYCIN (06/01/2024 6:29 AM DIRECTOR OF STAFF DEVELOPMENT) VANCOMYCIN 24.4 ug/mL 06/01/2024 7:26 AM DIRECTOR OF STAFF DEVELOPMENT [facility] Comment:No Reference Range D efined. DATE OF LAST DOSE,RANDOM Not Given 06/01/2024 7:26 AM DIRECTOR OF STAFF DEVELOPMENT [facility] TIME OF LAST DOSE,RANDOM Not Given 06/01/2024 7:26 AM DIRECTOR OF STAFF DEVELOPMENT [facility] Blood BLOOD SPECIMEN / Unknown Venipuncture / Unknown 06/01/2024 6:29 AM DIRECTOR OF STAFF DEVELOPMENT 06/01/2024 6:58 AM DIRECTOR OF STAFF DEVELOPMENT us Emily Montes De Oca MD CHEMISTRY Final R esult [facility] SENDOUT INTERNAL ZIP [phone] [place] [phone] * (ABNORMAL) AEROBIC BACTERIAL CULTURE, STAIN (05/31/2024 4:33 PM DIRECTOR OF STAFF DEVELOPMENT) CULTURE RESULT(A) 06/03/2024 11:21 AM DIRECTOR OF STAFF DEVELOPMENT [facility]- NTRAL LABORATORY CULTURE 3+ Staphylococcus aureus 06/03/2024 11:21 AM DIRECTOR OF STAFF DEVELOPMENT [facility]- N[facility]AL LABORATORY CULTURE 3+ Achromobacter xylosoxidans 06/03/2024 11:21 AM DIRECTOR OF STAFF DEVELOPMENT [facility]- N[facility]AL LABORATORY CULTURE 3+ Mixed carlos present 06/03/2024 11:21 AM DIRECTOR OF STAFF DEVELOPMENT [facility]- [facility]AL LABORATORY GRAM STAIN 1+ PMNs 06/03/2024 11:21 AM DIRECTOR OF STAFF DEVELOPMENT [facility] GRAM STAIN No Epithelial cells 06/03/2024 11:21 AM DIRECTOR OF STAFF DEVELOPMENT [facility] GRAM STAIN 1+ RBCs 06/03/2024 11:21 AM DIRECTOR OF STAFF DEVELOPMENT [facility] GRAM STAIN 3+ Gram Positive Cocci 06/03/2024 11:21 AM DIRECTOR OF STAFF DEVELOPMENT [facility] GRAM STAIN Gram stain performed by [place] 06/03/2024 11:21 AM DIRECTOR OF STAFF DEVELOPMENT [facility] Other (Other) Non-Blood / Unknown 05/31/2024 4:33 PM DIRECTOR OF STAFF DEVELOPMENT 05/31/2024 4:42 PM DIRECTOR OF STAFF DEVELOPMENT Narrative [facility] - 06/03/2024 11:21 AM DIRECTOR OF STAFF DEVELOPMENT Mixed Carlos; No beta-Strep, Strep. pneumoniae, or Pseudomonas aeruginosa [...] S Francisca Roman NP MICROBIOLOGY Final Result [facility] [address] [place] [address], [facility] SENDOUT INTERNAL ZIP [phone] [place] [phone] * XR FOOT 3 VIEWS LEFT (05/31/2024 1:53 PM DIRECTOR OF STAFF DEVELOPMENT) Anatomical Region Laterality Modality FEET, FOOT L Computed Radiogr aphy 05/31/2024 1:53 PM DIRECTOR OF STAFF DEVELOPMENT Impressions 05/31/2024 1:59 PM DIRECTOR OF STAFF DEVELOPMENT Osteopenia. Marked calcified atherosclerosis. Neuropathic changes left midfoot. Findings have progressed since 2011. No evidence of osteomyelitis. Narrative 05/31/2024 1:59 PM DIRECTOR OF STAFF DEVELOPMENT For Patients: As a result of the Cures Act, medical imaging exams and procedure reports are released immediately into your electronic medical record. You may view this report before your referring provider. If you have questions, please contact your health care provider. EXAM: XR FOOT 3 VIEWS LEFT LOCATION: [facility] DATE: 05/31/2024 INDICATION: Left foot ulcer COMPARISON: 04/28/2012 Procedure Note Eriberto Recio MD - 05/31/2024 For Patients: As a result of the Cures Act, medical imagingexams and procedure reports are released immediately into your electronicmedical record. You may view this report before your referring provider.If you have questions, please contact your health care provider. EXAM: XR FOOT 3 VIEWS LEFT LOCATION: [facility] DATE: 05/31/2024 INDICATION: Left foot ulcer COMPARISON: 04/28/2012 IMPRESSION: Osteopenia. Marked calcified atherosclerosis. Neuropathic changes leftmidfoot. Findings have progressed since 2011. No evidence ofosteomyelitis. Francisca Roman NP GENERAL IMAGING Final Result * ECHO TTE COMPLETE WO CONTRAST (05/31/2024 12:49 PM DIRECTOR OF STAFF DEVELOPMENT) EJECTION FRACTION 40-45% PROSOLV Anatomical Region Laterality Modality Ultrasound 05/31/2024 12:0 6 PM DIRECTOR OF STAFF DEVELOPMENT Narrative 05/31/2024 1:23 PM DIRECTOR OF [place] [address] Main: [email or web address] Transthor[facility] Echo Report KOREY SERRANO Careyian ID: [id number] Age: 84 : 1940 Ordering Provider: EMILY MONTES DE OCA Exam Date: 05/31/2024 12:06 Gender: M Internet Developer: SHIVAM Height: 72 in BSA: 2.06 m [...] ZScore: -0.31 Leidy Stephenson MD (Electronically Signed) [facility] Accredited Site Final Date: 31 May 2024 13:23 ICD-10 Codes: I24.8 Procedure Note Leidy Stephenson MD - 05/31/2024 [place] [address] Main: [email or web address] Transthoracic Echo Report KOREY SERRANO ID: [id number] Age: 84 : 1940 Ordering Provider:EMILY MONTES DE OCA Exam Date: 05/31/2024 12:06 Gender: M Internet Developer: SHIVAM Height: 72 in BSA: 2.06 m [...] ZScore: -0.31 Leidy Stephenson MD (Electronically Signed) [facility] Accredited Site Final Date: 31 May 2024 13:23 ICD-10 Codes: I24.8 us Anca Ariella Montes De Oca MD ECHO ORD Final R esult * SCAN-CARDIAC STRIP (05/31/2024 7:47 AM DIRECTOR OF STAFF DEVELOPMENT) us Scanner OTHER Final Result * HEMOGLOBIN A1C (05/31/2024 7:21 AM DIRECTOR OF STAFF DEVELOPMENT) HEMOGLOBIN A1C SCREENING 4.9 <=6.4 % 05/31/2024 1:53 PM DIRECTOR OF STAFF DEVELOPMENT [facility] Blood BLOOD SPECIMEN / Unknown Butterfly / Unknown 05/31/2024 7:21 AM DIRECTOR OF STAFF DEVELOPMENT 05/31/2024 7:44 AM DIRECTOR OF STAFF DEVELOPMENT Narrative [facility] - 05/31/2024 1:53 PM DIRECTOR OF STAFF DEVELOPMENT (<5.7%) Normal (5.7% to 6.4%) Indicates prediabetes (>=6.5%) Confirms diabetes Falsely low levels may be seen with: Recent Transfusion, Recent Significant Blood Loss, Hemolytic Diseases, or Falsely elevated levels may be seen with: Untreated Anemias, Splenectomy us Francisca Roman NP CHEMISTRY Final Result [facility] SENDOUT [place]NAL ZIP [id number] [address] [place] [address] * MAGNESIUM (05/31/2024 7:21 AM DIRECTOR OF STAFF DEVELOPMENT) MAGNESIUM 2.0 1.6 - 2.4 mg/dL 05/31/2024 10:05 AM DIRECTOR OF STAFF DEVELOPMENT [facility] Blood BLOOD SPECIMEN / Unknown Butterfly / Unknown 05/31/2024 7:21 AM DIRECTOR OF STAFF DEVELOPMENT 05/31/2024 7:44 AM DIRECTOR OF STAFF DEVELOPMENT us Anca Ariella Montes De Oca MD CHEMISTRY Final R esult [facility] SENDOUT INTERNAL ZIP [id number] [address] [place] [address] * SCAN-CARDIAC STRIP (05/30/2024 4:52 PM DIRECTOR OF STAFF DEVELOPMENT) us Scanner OTHER Final Result * SCAN CORRESP-IMAGING (05/30/2024 12:50 PM DIRECTOR OF STAFF DEVELOPMENT) Anatomical Region Laterality Modality Other Narrative 05/30/2024 12:50 PM DIRECTOR OF STAFF DEVELOPMENT Ordered by an unspecified provider. us Other Clinical Staff OTHER Final Resul t * SCAN CORRESP-EKG RESULTS (05/30/2024 12:28 PM DIRECTOR OF STAFF DEVELOPMENT) Narrative 05/30/2024 12:28 PM DIRECTOR OF STAFF DEVELOPMENT Ordered by an unspecified provider. us Other Clinical Staff OTHER Final Resul t * SCAN-CARDIAC STRIP (05/30/2024 7:29 AM DIRECTOR OF STAFF DEVELOPMENT) us Scanner OTHER Final Result * SCAN-CARDIAC STRIP (05/29/2024 8:32 AM DIRECTOR OF STAFF DEVELOPMENT) us Scanner OTHER Final Result * (ABNORMAL) PRO-BNP (05/29/2024 5:14 AM DIRECTOR OF STAFF DEVELOPMENT) Only the most recent of2 resultswithin the time period is included. PRO-BNP >70,000(H) <450 pg/mL 05/29/2024 12:54 PM DIRECTOR OF STAFF DEVELOPMENT [facility] Blood BLOOD SPECIMEN / Unknown Butterfly / Unknown 05/29/2024 5:14 AM DIRECTOR OF STAFF DEVELOPMENT 05/29/2024 5:25 AM DIRECTOR OF STAFF DEVELOPMENT Narrative [facility] - 05/29/2024 12:54 PM DIRECTOR OF STAFF DEVELOPMENT The following cut-points have been suggested for [...] failure. us Luís Porter MD SEND OUTS nal Result [facility] SENDOUT INTERNAL ZIP [id number] [place] [address] * SCAN-CARDIAC STRIP (05/28/2024 11:31 AM DIRECTOR OF STAFF DEVELOPMENT) us Scanner OTHER Final Result * (ABNORMAL) ELECTROLYTE PANEL (05/28/2024 5:02 AM DIRECTOR OF STAFF DEVELOPMENT) SODIUM 135(L) 136 - 145 mmol/L 05/28/2024 6:15 AM [facility] POTASSIUM 4.0 3.5 - 5.1 mmol/L 05/28/2024 6:15 AM [facility] CHLORIDE 97(L) 98 - 107 mmol/L 05/28/2024 6:15 AM [facility] CO2,TOTAL 29 22 - 29 mmol/L 05/28/2024 6:15 AM [facility] ANION GAP 9 5 - 18 05/28/2024 6:15 AM [facility] Blood BLOOD SPECIMEN / Unknown Venipuncture / Unknown 05/28/2024 5:02 AM DIRECTOR OF STAFF DEVELOPMENT 05/28/2024 5:30 AM [facility] us Ezekiel Soto DO CHEMISTRY Aleah l Result [facility] SENDOUT INTERNAL ZIP [phone] [place] [address] * XR CHEST 1 VIEW PORTABLE (05/27/2024 4:40 PM DIRECTOR OF STAFF DEVELOPMENT) Anatomical Region Laterality Modality HEART, THORAX, CHEST Computed Ra diography 05/27/2024 4:40 PM DIRECTOR OF STAFF DEVELOPMENT Impressions 05/27/2024 4:55 PM DIRECTOR OF STAFF DEVELOPMENT Sternotomy. Right pacemaker. Small left effusion with atelectasis. No right effusion. Bilateral calcified granulomas. Right lung clear. Calcified mediastinal and bilateral hilar lymph nodes. Narrative 05/27/2024 4:55 PM DIRECTOR OF STAFF DEVELOPMENT For Patients: As a result of the Cures Act, medical imaging exams and procedure reports are released immediately into your electronic medical record. You may view this report before your referring provider. If you have questions, please contact your health care provider. EXAM: XR CHEST 1 VIEW PORTABLE LOCATION: [facility] DATE: 05/27/2024 INDICATION: SOB [...] EXAM: XR CHEST 1 VIEW PORTABLE LOCATION: [facility] DATE: 05/27/2024 INDICATION: SOB Other re-assess pleural effusion COMPARISON: 02/26/23 xray, 11/18/19 xray IMPRESSION: Sternotomy. Right pacemaker. Small left effusion with atelectasis. Noright effusion. Bilateral calcified granulomas. Right lung clear.Calcified mediastinal and bilateral hilar lymph nodes. Ezekiel Soto DO GENERAL IMAGING Aleah l Result * SCAN-CARDIAC STRIP (05/27/2024 11:15 AM DIRECTOR OF STAFF DEVELOPMENT) us Scanner OTHER Final Result * SCAN-CARDIAC STRIP (05/26/2024 10:29 AM DIRECTOR OF STAFF DEVELOPMENT) us Scanner OTHER Final Result * SCAN-CARDIAC STRIP (05/25/2024 9:28 AM DIRECTOR OF STAFF DEVELOPMENT) us Scanner OTHER Final Result * (ABNORMAL) TROPONIN T (HS) ONE TIME (05/25/2024 7:26 AM DIRECTOR OF STAFF DEVELOPMENT) TROPONIN T HS 248(H) 6-15 ng/L ng/L 05/25/2024 8:23 AM DIRECTOR OF STAFF DEVELOPMENT [facility] Blood BLOOD SPECIMEN / Unknown Venipuncture / Unknown 05/25/2024 7:26 AM DIRECTOR OF STAFF DEVELOPMENT 05/25/2024 8:01 AM DIRECTOR OF STAFF DEVELOPMENT us Sheyla Chaudhry MD CHEMISTRY Final Re sult [facility] SENDOUT INTERNAL ZIP [id number] [place] [address] * SCAN-CARDIAC STRIP (05/25/2024 5:46 AM DIRECTOR OF STAFF DEVELOPMENT) us Scanner OTHER Final Result * (ABNORMAL) TROPONIN T (HS) ACUTE W/2HR REFLEX (05/25/2024 5:37 AM DIRECTOR OF STAFF DEVELOPMENT) TROPONIN T HS 256(H) 6-15 ng/L ng/L 05/25/2024 6:17 AM DIRECTOR OF STAFF DEVELOPMENT [facility] Blood BLOOD SPECIMEN / Unknown Venipuncture / Unknown 05/25/2024 5:37 AM DIRECTOR OF STAFF DEVELOPMENT 05/25/2024 5:38 AM DIRECTOR OF STAFF DEVELOPMENT Narrative [facility] - 05/25/2024 6:17 AM DIRECTOR OF STAFF DEVELOPMENT hs-cTnT (Elecsys Troponin T Gen 5) concentration [...] Sheyla Chaudhry MD CHEMISTRY Final Re sult [facility] SENDOUT INTERNAL [facility] [id number] [place] [address] * PROCALCITONIN (05/25/2024 5:37 AM DIRECTOR OF STAFF DEVELOPMENT) PROCALCITONIN 0.47 ng/ml 05/25/2024 6:18 AM DIRECTOR OF STAFF DEVELOPMENT [facility] Blood BLOOD SPECIMEN / Unknown Venipuncture / Unknown 05/25/2024 5:37 AM DIRECTOR OF STAFF DEVELOPMENT 05/25/2024 5:38 AM DIRECTOR OF STAFF DEVELOPMENT [facility] - 05/25/2024 6:18 AM DIRECTOR OF STAFF DEVELOPMENT Procalcitonin for initial assessment of Lower Respiratory [...] Chaudhry MD SEND OUTS Final Re sult [facility] SENDOUT INTERNAL ZIP [id number] [address] [place] [address] from Last 3 Months Insurance [id number] [facility] [id number] MEDICARE RR PART A HB ONLY [facility] MR/MSHO [id number] [place] [id number] [facility] [id number] [place] [id number] Advance Directives Documents on File Type Date Recorded Patient Drug Counselor Expl anation Power of Inspector Boiler 06/05/2019 06/05/2019 Healthcare Directive 06/05/2019 019 Power of Inspector Boiler 07/19/2006 * Full Code (Latest Code Status [...] 11:52 AM 11/02/2018 9:20 PM Care Teams Benefits Sales Consultant Relationship Specialty Start Date End Date Anna [place] [address] PCP - General Family Practice 10/06/22 [facility] [address], [place] [address] 07/06/24
[2024-07-12 00:29] VITALS: BP 132/69; PULSE 77; RESP 16; TEMP 36.7; O2SAT 96; BMI 25.8
--- NOTE | 2024-07-12 00:59 | CRLHL7_ITS ---
For Patients: As a result of the Century Cures Act, medical imaging exams and procedure reports are released immediately into your electronic medical record. You may view this report before your referring provider. If you have questions, please contact your health care provider. Indication: Constipation. Technique: Abdomen 1 view. Comparison: CT chest abdomen and pelvis 12/27/2022. Findings/Impression: Prominent colonic stool burden with nonspecific gaseous distention of visualized colonic loops measuring up to 11 cm. Recommend further characterization with CT abdomen/pelvis if there is clinical suspicion for intra-abdominal pathology. No definite radiographic evidence of free intraperitoneal air. Prominent vascular calcifications. Left lung base hazy opacification. Dictated by Phillip Ramires MD @ 07/12/2024 1:28:44 AM (Electronically Signed)
--- NOTE | 2024-07-12 01:00 | ED_ITS ---
HPI - General Adult General Chief complaint: Unspecified Complaint, Adult Stated complaint: poss allergic reaction to meds Time Seen by Provider: 07/12/24 00:31 Source: patient and family Mode of arrival: ambulatory History of Present Illness HPI narrative: 84-year-old male presents the emergency department with his for evaluation of multiple unrelated complaints. Body complaints of pain in the head, neck, multiple joints, insomnia, restlessness. Patient was in the ED about a week ago, was prescribed prednisone for arthritis. Some initial improvement but now it seems like he is not sleeping as well and he is constantly complaining of things. he is taking the prednisone in the evenings. This is a very long 40 minute conversation but ultimately it is quite clear that the patient is just getting fixated on 1 thing to another he bounces between complaints quickly he is restless and a little irritable. He is having difficulty sleeping and is constantly making complaints to his about his an elements and she is of the mind set of trying to solve these rather than recognizing that his fixation, irritability and restlessness are the main issue. I do think the prednisone is probably contributing here. There is no gavi psychosis, he is not having severe agitation. His appetite has been poor over the last several months. He is on dialysis and his labs have been essentially stable. He was discharged from a tertiary care center for pneumonia last month and he has been getting weaker and more deconditioned ever since that illness. reports that they have made complaints about his pain to his primary care team and they have recommended Tylenol but have not recommended stronger pain medicine. I do not think that anyone has had a conversation with them about the irritability and restlessness and his aging brain as a separate problem to manage. They have tried sleep aids like melatonin and what sounds like Unisom in the past without significant success. No new trauma or injury. No new strok e-like symptoms. He in 1 of his many quickly shifting complaints, he also thinks that he is constipated but his quickly dismisses that as she states that he is having bowel movements a few days per week and is not eating great. He continues to fixate this and she seems frustrated and would like to do an x- ray. She does supplement MiraLax. He reports that he has felt much better after he has had suppositories in the past. It does not sound as though she felt like he needed a suppository at home. They do have some home health in place. They have an upcoming visit with their primary care doctor on July 19. 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 It has been a few years since I have cared for this patient and I do notice significant cognitive decline. Medications are still being updated in do not match those listed, does question if the new midodrine is potentially a factor in his side effects. ED notes from last week reviewed. ROS has multiple positives which the patient fixates on for a few seconds and then switches to it completely new fixation, forgetting about the previous and that is clearly restless in the exam today. ROS determine to be unreliable. Related Data Home Medications ?Medication ?Instructions ?Recorded ?Confirmed acetaminophen 650 mg 650 mg PO Q8H PRN 12/27/22 05/24/24 tablet,extended release (Tylenol Arthritis Pain) aspirin 81 mg capsule 81 mg PO DAILY 12/27/22 05/23/24 coenzyme Q10 100 mg capsule (Co 100 mg PO DAILY 12/27/22 05/24/24 Q-10) guaifenesin 100 mg/5 mL oral liquid 100 mg PO Q4H PRN coughing 12/27/22 05/24/24 insulin aspart U-100 100 unit/mL 5 unit subcut TIDWM 12/27/22 05/23/24 (3 mL) subcutaneous pen (Novolog FlexPen U-100 Insulin aspart) loratadine 10 mg tablet (Claritin) 10 mg PO DAILY 12/27/22 05/24/24 montelukast 10 mg tablet 10 mg PO HS 12/27/22 05/24/24 (Singulair) nitroglycerin 0.4 mg sublingual 0.4 mg sublingual Q5M PRN 12/27/22 05/24/24 tablet (Nitrostat) sennosides 8.6 mg capsule (senna) 8.6 - 17.2 mg PO BID 12/27/22 05/24/24 B complex 11-folic acid 1 mg-C 100 1 tab PO BID 10/06/23 05/24/24 mg-biotin 300 mcg-zinc 50 mg tablet (Dialyvite) albuterol sulfate 90 mcg/actuation 2 inh inhalation Q4H PRN 10/06/23 05/24/24 aerosol inhaler (Ventolin HFA) cholecalciferol (vitamin D3) 50 50 mcg PO DAILY 10/06/23 05/24/24 mcg (2,000 unit) capsule cyclosporine 0.05 % eye drops in a 1 drp ophthalmic (eye) Q12H 10/06/23 05/24/24 dropperette (Restasis) fluticasone propionate 50 1 spray intranasal DAILY PRN 10/06/23 05/23/24 mcg/actuation nasal spray,suspension (24 Hour Allergy Relief) insulin glargine 100 unit/mL (3 18 unit subcut HS 10/06/23 05/24/24 mL) subcutaneous pen (Lantus Solostar U-100 Insulin) krill 1,000 mg-omega-3 230 mg-dha 1 cap PO DAILY 10/06/23 05/24/24 60 fr-nmb-qhlysywkj-astaxan capsule (MegaRed [place]-3 Krill Oil) pantoprazole 40 mg tablet,delayed 40 mg PO DAILY 10/06/23 05/24/24 release pravastatin 80 mg tablet 80 mg PO HS 10/06/23 05/24/24 vitamin E 268 mg (400 unit) capsule 268 mg PO DAILY 10/06/23 05/24/24 clopidogrel 75 mg tablet 75 mg PO DAILY 05/24/24 05/24/24 diphenhydramine HCl 25 mg capsule 25 mg PO Q4H PRN 05/24/24 05/24/24 (Aler-Cap) fluticasone 100 mcg-salmeterol 50 1 inh inhalation BID 05/24/24 05/24/24 mcg/dose blistr powdr for inhalation (Wixela Inhub) hydrocortisone 2.5 % topical cream 1 applic topical BID PRN 05/24/24 05/24/24 levothyroxine 175 mcg capsule 175 mcg PO DAILY 05/24/24 05/24/24 magnesium hydroxide 400 mg/5 mL 30 ml PO DAILY PRN 05/24/24 05/24/24 oral suspension (Dulcolax (magnesium hydroxide)) methyl salicylate 15 %-menthol 10 1 applic topical TID PRN 05/24/24 05/24/24 % topical cream (Analgesic [place] (m.salic-menthol)) tiotropium bromide 18 mcg capsule 1 cap inhalation DAILY 05/24/24 05/24/24 with inhalation device (Spiriva with HandiHaler) midodrine 10 mg tablet 10 mg PO DAILY 07/12/24 07/12/24 Previous Rx's ?Medication ?Instructions ?Recorded prednisone 20 mg tablet 20 mg PO DAILY #7 tabs 07/05/24 Allergies Allergy/AdvReac Type Severity Reaction Status Date / Time doxycycline Allergy Unknown Verified 07/12/24 00:33 atorvastatin (From Lipitor) Allergy Verified 07/12/24 00:33 hydrocodone Allergy Verified 07/12/24 00:33 lisinopril Allergy Verified 07/12/24 00:33 metoclopramide (From Reglan) Allergy Verified 07/12/24 00:33 omeprazole Allergy Verified 07/12/24 00:33 [facility] Medical History Frailty syndrome in geriatric patient ?R54 - Age-related physical debility (ICD-10) Coronary artery disease ?I25.10 - Atherosclerotic heart disease of [place] coronary artery without angina pectoris (ICD-10) Recurrent UTI ?N39.0 - Urinary tract infection, site not specified (ICD-10) Secondary hyperparathyroidism (of renal origin) ?N25.81 - Secondary hyperparathyroidism of renal origin (ICD-10) Pneumonia due to COVID-19 virus ?U07.1 - COVID-19 (ICD-10) ?J12.82 - Pneumonia due to coronavirus disease 2019 (ICD-10) Severe obesity ?E66.01 - Morbid (severe) obesity due to excess calories (ICD-10) Mobitz type 1 second degree AV block ?I44.1 - Atrioventricular block, second degree (ICD-10) Calculus of gallbladder without cholecystitis ?K80.20 - Calculus of gallbladder without cholecystitis without obstruction (ICD-10) Anemia of chronic renal failure ?N18.9 - Chronic kidney disease, unspecified (ICD-10) ?D63.1 - Anemia in chronic kidney disease (ICD-10) Allergic rhinitis ?J30.9 - Allergic rhinitis, unspecified (ICD-10) DVT (deep venous thrombosis) ?I82.409 - Acute embolism and thrombosis of unspecified deep veins of unspecified lower extremity (ICD-10) Hypothyroidism ?E03.9 - Hypothyroidism, unspecified (ICD-10) Pulmonary emphysema ?J43.9 - Emphysema, unspecified (ICD-10) Obstructive sleep apnea ?G47.33 - Obstructive sleep apnea (adult) (pediatric) (ICD-10) Colon polyp ?K63.5 - Polyp of colon (ICD-10) Detached retina, left ?H33.22 - Serous retinal detachment, left eye (ICD-10) GERD with esophagitis ?K21.00 - Gastro-esophageal reflux disease with esophagitis, without bleeding (ICD-10) Hypertension ?I10 - Essential (primary) hypertension (ICD-10) Diabetic foot ulcer ?E11.621 - Type 2 diabetes mellitus with foot ulcer (ICD-10) ?L97.509 - Non-pressure chronic ulcer of other part of unspecified foot with unspecified severity (ICD-10) Charcot foot due to diabetes mellitus ?E11.610 - Type 2 diabetes mellitus with diabetic neuropathic arthropathy (ICD-10) Pulmonary asbestosis ?J61 - Pneumoconiosis due to asbestos and other mineral fibers (ICD-10) Myocardial infarction ?I21.9 - Acute myocardial infarction, unspecified (ICD-10) Hypercholesterolemia ?E78.00 - Pure hypercholesterolemia, unspecified (ICD-10) End stage renal disease on dialysis ?N18.6 - End stage renal disease (ICD-10) ?Z99.2 - Dependence on renal dialysis (ICD-10) DM (diabetes mellitus), type 2 ?E11.9 - Type 2 diabetes mellitus without complications (ICD-10) COPD (chronic obstructive pulmonary disease) ?J44.9 - Chronic obstructive pulmonary disease, unspecified (ICD-10) Surgical History S/P ORIF (open reduction internal fixation) fracture ?Z98.890 - Other specified postprocedural states (ICD-10) ?Z87.81 - Personal history of (healed) traumatic fracture (ICD-10) S/P CABG x 4 ?Z95.1 - Presence of aortocoronary bypass graft (ICD-10) Family History Brother Leukemia Mother Oral cancer Father Alzheimers disease Social History Narrative: 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 What is your current living situation?: I presently have a place to live Problems where you live: no known problems Problems where you live details: n/a In the past 12 months, utilities in danger of being shut off: no In past 12 months, lack of transportation kept you from medical appts, meetings, work, or getting things needed for daily living: no In the past 12 mos, have been you worried that your food would run out before you had money to buy more?: never true In the past 12 mos, the food you bought just didn't last and you didn't have money to buy more?: never true Smoking Status: Former smoker Do you use any of these nicotine containing products: None Second hand tobacco smoke exposure: No How often do you have a drink containing alcohol: 2-4 times a month How often do you have six or more drinks on one occasion: Never AUDIT-C Alcohol total score: 2 Non-prescribed substance use: denies use How often does anyone, including family, friends and others, physically hurt you : never How often does anyone, including family, friends and others, insult or talk down to you: never How often does anyone, including family, friends and others, threaten you with harm: never How often does anyone, including family, friends and others, scream or curse at you: never service: No Exam Const: Vital Signs, click to edit/add: Vital Signs - 24 hr 07/12/24 00:29 Temperature 98.0 F Pulse Rate [Pulse Oximeter] 77 Respiratory Rate 16 Blood Pressure [Ri ght Upper Arm] 132/69 Pulse Oximetry 96 Oxygen Delivery Me thod Room Air Documenting provider has reviewed patient's vital signs: yes Other: Restless but temporarily redirectable, circles back to a new complaint about every 5 seconds in the exam, about every 20 seconds as a bystander in the other conversations in the room. Clearly does better with frequent attention and speaking to. If he feel like his left out of the conversation, he becomes more restless and makes complaints seeming to gain more attention. HENMT: Common normals: normocephalic Head and scalp: normocephalic Face and sinus: normal facial exam Throat: posterior oropharynx normal Eye: Common normals: conjunctivae normal General eye: normal appearance of both eyes Conjunctiva: conjunctiva(e) normal Neck & C-Spine: Common normals: full ROM General: normal visual inspection Cervical spine: no cervical spine tenderness Resp: Common normals: normal respiratory effort Other: Mildly decreased at the bases but no obvious crackles or wheeze. Normal respiratory effort. Cardio: Common normals: regular rate, regular rhythm, S1 normal heart sound and S2 normal heart sound Rate: regular rate Rhythm: regular rhythm Heart sounds: S1 normal and S2 normal GI: Common normals: Normal to inspection, nondistended, normoactive bowel sounds present, soft to palpation, non-tender and no hepatosplenomegaly Palpation: soft and no hepatosplenomegaly Extremity: Other: Mature fistula left arm. No obvious swelling or deformity to the upper and lower extremities. Neuro: Other: Generalized weakness but can use his arms to pull himself up on the bed, requires assistance to shift positions in the bed. Psych: Other: Restless but cooperates with exam. Can follow some commands. Insight seems very poor. Course Course ED Course: 84-year-old male with increased insomnia and irritability, multiple complaints that seem more related to the insomnia and irritability. When you distract him he comes up with a new complaint and seems to act as though the previous 1 was no longer problematic. I spent a significant amount of time counseling his on how to spot the differences between restlessness and valid new acute complaints which can be very difficult. Would like for her to get out of the mind set of trying to constantly solve all of the problems that he throws at her and rather recognize the patterns of behavior as part of her caregiving. This is a very difficult thing. I do think that the prednisone he has recently been prescribed is making him more irritable and restless at night. I think this is contributing to the insomnia. When I point this out, his is agreeing with me that this is likely going on even though she had not previously noticed this. It certainly does connect with the starting of the prednisone. I recommended that they stop the prednisone or switch it to every other morning, the non dialysis days. I am very hesitant to prescribe narcotics for pain control as I would do not think that the pain is as much of an issue as the restlessness and cognitive decline. I would consider a short course of lorazepam in the evenings to help with sleep but have cautioned the that this will make him weaker and cause more cognitive disruption. It can occasionally have paradoxical FX in elderly people as well. She would like to proceed with an abdominal x-ray for reassurance that he is not constipated I think this is reasonable. I did discuss of medication to help him relax but stated that I have concerns with her ability to get him into the house if we do that and she agrees with me and would like to wait a potentially give that once she has gotten home. We discussed the risks and benefits of blood work and she agrees with me that since this is done 3 times per week at dialysis, additional information is unlikely to be helpful. She would like to proceed with x-ray only. Reevaluation(s) Time of Reevaluation #1: 02:05 Reevaluation #1: Counseled family on findings. There certainly is some stool and gas and I offered to treat this here in the ED. reports that she would like to treat it at home. I reviewed that they typically use senna 3 tablets twice daily. The does think that she forgot to give it to him today after dialysis and tonight as well. She will sometimes give MiraLax as well. She is planning to give 6 tablets of senna this morning. I have agreed with this and have encouraged her to use her typical evening dose as well and have encouraged MiraLax every 8 hours today until there is stool movement. He is still taking fluids and his typical low nutrition level. I think it is reasonable to let her work this plan as she does think that giving him the laxatives and then trying to transport him home could be messy. After our discussion of findings, patient was very restless and wanted to go home immediately and was frustrated that there were so many other patients in the ED. I did associate professor of counseling the that it seems as though he is going to continue to show this type of cognitive pattern and a long-term plan of how to manage this may be necessary. I have offered a short-term solution of lorazepam 0.5 mg at bedtime p.r.n. and 10 tablets are given. This will get them to their upcoming appointment. They will stop the prednisone as I do think this is causing more irritability and insomnia. They will start the lorazepam as discussed above. Bowel regimen as discussed above. They will continue all of their other typical treatments and keep their follow-up on the . Alarm symptoms reviewed that would warrant ED presentation. Total of 52 minutes were spent [id number] with this family today. Unfortunately, it was not as effective as I wish it could be as the patient does interrupt very frequently and has very limited insight. Vital Signs Vital signs: Initial Vital Signs Temperature 98.0 F 07/12/24 00:29 Temperature Source Temporal Artery Scan 07/12/24 00:29 Pulse Rate 77 07/12/24 00:29 Respiratory Rate 16 07/12/24 00:29 Blood Pressure 132/69 07/12/24 00:29 Blood Pressure Mean 90 07/12/24 00:29 Blood Pressure Position Sitting 07/12/24 00:29 Pulse Oximetry 96 07/12/24 00:29 Oxygen Delivery Method Room Air 07/12/24 00:29 Vital Signs Temperature 98.0 F 07/12/24 00:29 Pulse Rate 77 07/12/24 00:29 Respiratory Rate 16 07/12/24 00:29 Blood Pressure 132/69 07/12/24 00:29 Pulse Oximetry 96 07/12/24 00:29 Oxygen Delivery Method Room Air 07/12/24 00:29 Temperature 98.0 F 07/12/24 00:29 Pulse Rate 77 07/12/24 00:29 Respiratory Rate 16 07/12/24 00:29 Blood Pressure 132/69 07/12/24 00:29 Pulse Oximetry 96 07/12/24 00:29 Oxygen Delivery Method Room Air 07/12/24 00:29 Discharge Plan Discharge Clinical Impression: Restlessness, Medication side effects, Cognitive decline, Chronic constipation Patient Disposition: Home w/ Parent or Adult Condition: Stable Instructions: Adverse Drug Reaction (ED) Additional Instructions: There certainly are a lot of things going on right now but I think that the most pressing and acute change that you are noticing is the restlessness and insomnia which is likely made worse by the prednisone. I do think it would be best to stop that medication and see if those symptoms improved. I have given you a very small supply of lorazepam, and anti anxiety sedative that you can use at bedtime. This is a low dose because I do not want to risk making him significantly weaker or more confused. I was hesitant to give him this medication in the emergency department because I was worried about your ability to get him home safely. Please give this to him right away once you arrive home. It can be very difficult to sort out his complaints both for you and myself. As the brain ages, especially for someone with kidney disease, they can become fixated on elements and get more restless. It can be difficult to tell if the restlessness is bothering them as they will often also then complained about pain, nausea, multiple other complaints. Typically if they would jump from 1 complaint to the other very quickly and then dismissed that the other was a problem quickly, it is best to wait and see how that you falls and offer comfort. Persistent complaints about anyone particular problems certainly should be taken very seriously. You are correct, there is some mild constipation but certainly not severe today. I would recommend additional senna and MiraLax. You stated that you would like to wait until you get home to give these, I think that is just fine. I would recommend that you go up on your typical senna dose today to the 6 tablets as planned. Give the MiraLax every 8 hours today until you get a movement. It is okay to dissolve the MiraLax in as little as 4 oz if you need to to help restrict fluids. It can be very difficult to care for someone as their cognition changes in the setting of all of their other long-term medical problems. Please discuss with your primary care provider at your upcoming appointment if you need more help. Please let them know how the trial of the sedative went as well and you guys can discussed if this is useful for you or causes more side effects than benefit. You can also discuss how the tapering off of the prednisone went and decide if those side effects really did seem related to the medication or not. Unfortunately, significant declines in cognition and functional status after an illness like his recent pneumonia are common and sometimes it can be difficult to regain the health we had before that illness. It is okay to keep offering Tylenol for his body aches but I would try to offer comfort and distraction in as many other ways as possible than medications. It may be helpful for you to bring this paperwork to your upcoming visit as it can take a long time for the providers at [facility] to find our notes efficiently. Activity Level: Activity as Tolerated Discharge Diet: Regular Prescriptions: No Action insulin aspart U-100 [Novolog FlexPen U-100 Insulin] 100 unit/mL (3 mL) insulin pen 5 unit subcut TIDWM guaifenesin 100 mg/5 mL liquid 100 mg PO Q4H PRN (Reason: coughing) montelukast [Singulair] 10 mg tablet 10 mg PO HS nitroglycerin [Nitrostat] 0.4 mg tablet, sublingual 0.4 mg sublingual Q5M PRN Rx Instructions: do not exceed 3 doses per episode aspirin 81 mg capsule 81 mg PO DAILY loratadine [Claritin] 10 mg tablet 10 mg PO DAILY coenzyme Q10 [Co Q-10] 100 mg capsule 100 mg PO DAILY senna 8.6 mg capsule 8.6 - 17.2 mg PO BID acetaminophen [Tylenol Arthritis Pain] 650 mg tablet extended release 650 mg PO Q8H PRN insulin glargine [Lantus Solostar U-100 Insulin] 100 unit/mL (3 mL) insulin pen 18 unit subcut HS albuterol sulfate [Ventolin HFA] 90 mcg/actuation HFA aerosol inhaler 2 inh inhalation Q4H PRN pantoprazole 40 mg tablet,delayed release (DR/EC) 40 mg PO DAILY pravastatin 80 mg tablet 80 mg PO HS fluticasone propionate [24 Hour Allergy Relief] 50 mcg/actuation spray,suspension 1 spray intranasal DAILY PRN Rx Instructions: administer into each nostril cyclosporine [Restasis] 0.05 % dropperette 1 drp ophthalmic (eye) Q12H Dialyvite [phone] vi-lh-ils-mg tablet 1 tab PO BID Rx Instructions: administer with a meal nmjpk-mt-[id number]-pxa-rry-yvyotbx-ast [MegaRed [place]-3 Krill Oil] 1,000-230-60 mg capsule 1 cap PO DAILY cholecalciferol (vitamin D3) 50 mcg (2,000 unit) capsule 50 mcg PO DAILY vitamin E 268 mg (400 unit) capsule 268 mg PO DAILY prednisone 20 mg tablet 20 mg PO DAILY Qty: 7 0RF clopidogrel 75 mg tablet 75 mg PO DAILY Analgesic [place] (m.salic-menth) 15-10 % cream 1 applic topical TID PRN diphenhydramine HCl [Aler-Cap] 25 mg capsule 25 mg PO Q4H PRN fluticasone propion-salmeterol [Wixela Inhub] 100-50 mcg/dose blister with device 1 inh inhalation BID hydrocortisone 2.5 % cream 1 applic topical BID PRN levothyroxine 175 mcg capsule 175 mcg PO DAILY magnesium hydroxide [Dulcolax (magnesium hydroxide)] 400 mg/5 mL suspension 30 ml PO DAILY PRN tiotropium bromide [Spiriva with HandiHaler] 18 mcg capsule, w/inhalation device 1 cap inhalation DAILY Rx Instructions: puncture 1 cap using device; one dose = 2 inhalations midodrine 10 mg tablet 10 mg PO DAILY Patient Comments: [NO ORIGINAL SIG] Follow Up/Referrals: Anna Marie Oglesby DO [Primary Care Provider] - Stand Alone [facility] Info Inst[facility]
--- OUTSIDE RECORDS SUMMARY | 2024-07-12 01:10 | XMS_ITS | Continuity of Care Document ---
Author Organization [facility] Address [address] [address] [place] [address] Phone Care Team Providers Care Hvac R Tech Name Role Phone Unavailable Unavailable Unavailable Advance Directives Directive Yes / No Effective Date File Name No Information Encounters Encounter Description Practice Location Reason(s) For Visit Diagnoses Date Provider Providers Copied on Encounter [facility], [address] [address], [place], [place], [id number], [place] tel:[phone] [facility] No Information Aug-201 8 No [...]
--- OUTSIDE RECORDS SUMMARY | 2024-07-12 01:11 | XMS_ITS | CONTINUITY OF CARE DOCUMENT ---
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 Genoveva Stephens , [address] [facility] [address] [address] [facility] [address] [facility] VITAL SIGNS Date Observation Value Provider Organization blood pressure, diastolic 64 mm[Hg] Mili Bredemus , [address] [facility] blood pressure, systolic 142 mm[Hg] Mili Bredemus , [address] [facility] [place] blood pressure, site #1 Upper arm Mili Bredemus , [address] [facility] blood pressure, diastolic, right arm 64 mm[Hg] Mili Bredemus , [address] [facility] blood pressure, systolic, right arm 142 mm[Hg] Mili Bredemus , [address] [facility] respiratory rate E&M 22 /min Mili Bredemus , [address] [facility] pulse rate 73 /min Milinahun Sanchezemu s , [address] [facility] [place] temperature E&M 98.3 [degF] Mili brink , [address] [facility] Body Mass Index (Ratio) 31.68 kg/m2 Mili Pizano , [address] [facility] weight E&M 220 [lb_av] Mili Ibanez s , [address] [facility] height E&M 70 [in_i] Mili Ibanez s , [address] [facility] blood pressure, diastolic 72 mm[Hg] Angelica Oswald , [address] [facility] [place] blood pressure, systolic 160 mm[Hg] Angelica Oswald , [address] [facility] [place] blood pressure, site #1 Upper arm Angelica Oswald , [address] [facility] blood pressure, diastolic, right arm 72 mm[Hg] Angelica ChenLac Du Flam[place]au , [address] [facility] blood pressure, systolic, right arm 160 mm[Hg] Angelica Beckerather , [address] [facility] [address] [facility] respiratory rate E&M 16 /min Angelica mijares , [address] [facility] [address] [facility] pulse rate 83 /min Angelica Denson her , [address] [facility] temperature E&M 98.4 [degF] Angelica silva , [address] [facility] [address] [facility] Body Mass Index (Ratio) 32.26 kg/m2 Angelica Oswald , [address] [facility] weight E&M 224 [lb_av] Angelica boggs , [address] [place] [address] [address] [facility] height E&M 70 [in_i] Angelica Denson her , [address] [place] [address] [address] [facility] [place] blood pressure, diastolic 75 mm[Hg] Radha De Leon RN RN, [address] [place] [address] [address] [facility] [place] blood pressure, systolic 181 mm[Hg] Radha De Leon RN RN, [address] [place] [address] [address] [facility] [place] respiratory rate E&M 14 /min Radha solano RN RN, [address] [place] [address] [address] [facility] [place] pulse rate 58 /min Radha De Leon RN R N, [address] [place] [address] [address] [facility] [place] blood pressure, site #1 Upper arm Radha De Leon RN RN, [address] [place] [address] [address] [facility] [place] blood pressure, diastolic, right arm 75 mm[Hg] Radha De Leon RN RN, [address] [place] [address] [address] [facility] [place] blood pressure, systolic, right arm 181 mm[Hg] Radha De Leon RN RN, [address] [place] [address] [address] [facility] [place] temperature E&M 98.0 [degF] Radha De Leon R N RN, [address] [place] [address] [address] [facility] [place] Body Mass Index (Ratio) 31.97 kg/m2 Radha De Leon RN RN, [address] [place] [address] [address] [facility] [place] weight E&M 222 [lb_av] Radha De Leon RN R N, [address] [place] [address] [address] [facility] [place] height E&M 70 [in_i] Radha De Leon RN R N, [address] [place] [address] [address] [facility] [place] ALLERGIES Allergy Name Onset Date Reaction Criticality Status Provider Or ganization PRILOSEC OTC diarrhea High Criticality active Genoveva Stephens , [address] [place] [address] [address] [place] [address] [facility] REGLAN gynecomastia High Criticality active Genoveva Stephens [address] [place] [address] [facility] LISINOPRIL GI upset High Criticality active [facility] , [address] [facility] [address] [place] [address] [facility] LIPITOR High Criticality active [facility] , [address] [facility] [address] [place] [address] [facility] RESULTS Date Observation Value Provider Organization Refer ence Range Interpretation Location blood glucose, finger stick 183 Mili Pizano , [address] [facility] [place] HISTORY OF MEDICATION USE Medication Instructions Status Dates Provider Indications Com ments Organization Protonix 40 mg tablet,delayed release (DR/EC) active Mili Pizano , [address] GALZIN 50 MG ORAL CAPSULE active Gen[address] [place] [address] [facility] CVS VITAMIN E 400 UNIT ORAL CAPSULE 1 daily active [address] [place] [address] [facility] VITAMIN D (ERGOCALCIFERO L) [address] UNIT ORAL CAPSULE 1 cap daily active [address] [place] [address] [facility] TYLENOL 8 HOUR 650 MG ORAL TABLET EXTENDED RELEASE PRN active Gen[address] [place] [address] [facility] SYMBICORT 160-4.5 MCG/ACT INHALATION AEROSOL 2 puffs daily active [address] [place] [address] [facility] SPIRIVA HANDIHALER 18 MCG INHALATION CAPSULE 1 daily active [address] [place] [address] [facility] SINGULAIR 10 MG ORAL TABLET 1 daily active [address] [place] [address] [facility] CVS SENNA 8.6 MG ORAL TABLET 2 tabs in AM 2 tabs in PM daily active [address] [place] [address] [facility] PRAVACHOL 80 MG ORAL TABLET 1 daily active [address] [place] [address] [facility] NOVOLOG FLEXPEN 100 UNIT/ML SUBCUTANEOUS SOLUTION PEN-INJECTOR 3 times daily active [address] [place] [address] [facility] NITROSTAT 0.4 MG SUBLINGUAL TABLET SUBLINGUAL active [address] [place] [address] [facility] MEGARED OMEGA-3 KRILL OIL 500 MG ORAL CAPSULE 1 daily active [address] [place] [address] [facility] ALLERGY RELIEF 10 MG ORAL TABLET 1 daily active [address] [place] [address] [facility] LEVO-T 175 MCG ORAL TABLET 1 at night active [address] [place] [address] [facility] LANTUS 100 UNIT/ML SUBCUTANEOUS SOLUTION active [address] [place] [address] [facility] GAVISCON TABLET CHEWABLE PRN active [address] [place] [address] [facility] FLOVENT HFA 110 MCG/ACT INHALATION INHALER active [address] [place] [address] [facility] FLUNISOLIDE 25 MCG/ACT (0.025%) NASAL SOLUTION PRN active [address] [place] [address] [facility] CO Q 10 100 MG ORAL CAPSULE 1 daily active [address] [place] [address] [facility] DIALYVITE ORAL TABLET active [address] [place] [address] [facility] ASPIRIN ADULT LOW DOSE 81 MG ORAL TABLET DELAYED RELEASE 1 daily active [address] [facility] [address] [facility] ALBUTEROL SULFATE HFA 108 (90 BASE) MCG/ACT INHALATION AEROSOL SOLUTION 1-2 puffs 4 times daily active Genoveva Stephens , [address] [place] [address] [address] [facility] [address] [facility] SOCIAL HISTORY Date Observation Value Provider Organization 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, [address] [place] [address] Drive [address] [facility] social history reviewed E&M reviewed - no changes required Mili Pizano , [address] [place] [address] Drive [address] [facility] 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 Yayo Hooker MD, MD, [address] [place] [address] [address] [facility] social history reviewed E&M reviewed - no changes required Angelica Oswald , [address] [place] [address] [address] [facility] [id number] [place] [address] [facility] 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 Yayo Hooker MD, MD, [address] [place] [address] Drive [address] [facility] social history reviewed E&M reviewed - no changes required Radha De Leon RN RN, [address] [place] [address] [facility] [place] INSURANCE PROVIDERS Payer name Policy type / Coverage type Bonita red democrat ID MEDICARE [id number] COMMERCIAL INSURANCE [id number] 5 HISTORY OF PROCEDURES Procedure Date Procedure Name Provider Procedure Notes Status Organization INJECTION FENTANYL CITRATE 100MCG Yayo Hooker MD, MD, [address] [facility] [address] completed [facility] INFUS NORMAL SALINE SOLUTION 250 CC Yayo Hooker MD, MD, [address] [facility] [address] completed [facility] INJECTION MIDAZOLAM HCL PER 1 MG Yayo Hooker MD, MD, [address] [facility] [address] completed [facility] Wire Yayo Hooker MD, MD, [address] [facility] [address] completed [facility] Balloon Yayo Hooker MD, MD, [address] [facility] [address] completed [facility] Sheath Yayo Hooker MD, MD, [address] [facility] [address] completed [facility] Omnipaque 300 10ml (Medicare Q9949) Yayo Hooker MD, MD, [address] [facility] [address] completed [facility] Angioplasty within including RS&I Yayo Hooker MD, MD, [address] [place] [address] completed [facility] Fistulagram, Dialysis Yayo Hooker MD, MD, [address] [facility] [address] completed [facility] Antibiotic-No Order Yayo Hooker MD, MD, [address] [facility] [address] completed [facility] Quailty Measures all negative Yayo Hooker MD, MD, [address] [facility] [address] completed [facility] SNOMED-CT:HISTORICAL PNEUMOCOCCAL VACCINATION Yayo Hooker MD, MD, [address] [facility] [address] completed [facility] SNOMED-CT:PATIENT ENCOUNTER Yayo Hooker MD, MD, [address] [facility] [address] completed [facility] SNOMED-CT: [id number] Current Medications Documented Yayo Hooker MD, MD, [address] [facility] [address] completed [facility] INFUS NORMAL SALINE SOLUTION 250 CC Yayo Hooker MD, MD, [address] [facility] [address] completed [facility] INJECTION MIDAZOLAM HCL PER 1 MG Yayo Hooker MD, MD, [address] [facility] [address] completed [facility] Wire Yayo Hooker MD, MD, [address] [facility] [address] completed [facility] Balloon Yayo Hooker MD, MD, [address] [facility] [address] completed [facility] Sheath Yayo Hooker MD, MD, [address] [facility] [address] completed [facility] Omnipaque-Visipaque Yayo Hooker MD, MD, [address] [facility] [address] 20 ml completed [facility] Angioplasty within including RS&I Yayo Hooker MD, MD, [address] [facility] [address] completed [facility] Fistulagram, Dialysis Yayo Hooker MD, MD, [address] [place] [address] completed [facility] Antibiotic-No Order Yayo Hooker MD, MD, [address] [facility] [address] completed [facility] Quailty Measures all negative Yayo Hooker MD, MD, [address] [facility] [address] completed [facility] SNOMED-CT:HISTORICAL PNEUMOCOCCAL VACCINATION Yayo Hooker MD, MD, [address] [facility] [address] completed [facility] SNOMED-CT:PATIENT ENCOUNTER Yayo Hooker MD, MD, [address] [facility] [address] completed [facility] SNOMED-CT: [id number] Current Medications Documented Yayo Hooker MD, MD, [address] [facility] [address] completed [facility] INFUS NORMAL SALINE SOLUTION 250 CC Yayo Hooker MD, MD, [address] [facility] [address] completed [facility] INJECTION MIDAZOLAM HCL PER 1 MG Yayo Hooker MD, MD, [address] [facility] [address] completed [facility] INJECTION FENTANYL CITRATE 100MCG Yayo Hooker MD, MD, [address] [facility] [address] completed [facility] Wire Yayo Hooker MD, MD, [address] [facility] [address] completed [facility] Balloon Yayo Hooker MD, MD, [address] [facility] [address] completed [facility] Sheath Yayo Hooker MD, MD, [address] [place] [address] completed [facility] Omnipaque-Visipaque Yayo Hooker MD, MD, [address] [facility] [address] 20 ml completed [facility] Angioplasty within including RS&I Yayo Hooker MD, MD, [address] [facility] [address] completed [facility] Fistulagram, Dialysis Yayo Hooker MD, MD, [address] [place] [address] completed [facility] Antibiotic-No Order Yayo Hooker MD, MD, [address] [facility] [address] completed [facility] Quailty Measures all negative Yayo Hooker MD, MD, [address] [facility] [address] completed [facility] SNOMED-CT:HISTORICAL PNEUMOCOCCAL VACCINATION Yayo Hooker MD, MD, [address] [place] [address] completed [facility] SNOMED-CT:PATIENT ENCOUNTER Yayo Hooker MD, MD, [address] [facility] [address] completed [facility] [place]
--- OUTSIDE RECORDS SUMMARY | 2024-07-12 01:12 | XMS_ITS | Clinical Summary ---
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 Active Vit B Cplx #[id number]-Zi nc (Dialyvite) [phone] yu-yv-dpu-mg tablet Take 1 Tablet by mouth once daily. 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 Overview (07/10/2006): Status [...] Team Description 07/10/2024 Plan of Care Documentation [facility] [address] [facility] [phone] 07/09/2024 11:00 AM REFRIGERATOR ASSEMBLER Home Care Visit [facility] [address] [place] [address] Kelsy Yi, RN SN - OASIS START OF CARE 07/09/2024 Telephone [facility] [address] [place] [phone] Kelsy Yi, main line assembler (Need ongoing orders for home health) 07/08/2024 Home Care Visit [facility] [address] [place] [address] Danitza Strange RN CARE COORDINATION 07/07/2024 9:30 AM REFRIGERATOR ASSEMBLER Office Visit [facility] [address] [facility] [place] [phone] Braulio Philippe, DPM Post-op (Left foot, DOS 06/05/24, 4 week post op) 07/07/2024 Travel 07/05/2024 Nurse Triage [facility] [address] [place] [address] Anna Marie Oglesby, Shortness Of Breath; Dizziness 06/28/2024 4:00 PM REFRIGERATOR ASSEMBLER Office [place] [facility] [address] [place] [address] Sneha De La Cruz MD CV Vascular Est (4 month follow up; discuss canceled carotid intervention. U/S scheduled prior. ) 06/28/2024 3:00 PM REFRIGERATOR ASSEMBLER - 06/28/2024 11:59 PM REFRIGERATOR ASSEMBLER Hospital Encounter [facility] [address] [place] [address] Sneha De La Cruz MD Leistner, Joseph S, R.T. (ARRT) Bilateral carotid artery stenosis 06/28/2024 11:10 AM REFRIGERATOR ASSEMBLER Office Visit [facility] [address] [place] [address] Zeny Medley MD Musculoskeletal Problem (R shoulder/neck pain x 1 month); Leg Pain/problem (Upper thigh pain since angiogram ) 06/28/2024 Travel 06/23/2024 1:00 PM REFRIGERATOR ASSEMBLER Home Care Visit [facility] [address] [place] [phone] Michelle Garnica, FRANCIA SN - OASIS DISCHARGE 06/23/2024 9:45 AM REFRIGERATOR ASSEMBLER Office Visit [facility] [address] [facility] [place] [phone] Braulio Philippe DPM Post-op (Left foot, DOS 06/05/24, 2 week post op) 06/23/2024 Travel 06/20/2024 Telephone [facility] [address] [phone] Pankaj Brownlee MD Medication Management (SPIRIVA) 06/16/2024 2:55 PM REFRIGERATOR ASSEMBLER Office Visit [facility] [address] [place] [address] Braden Wilder MD Hospital F/U ([employer], 05/25/2024 - 06/08/2024, pneumonia ) 06/16/2024 Travel 06/14/2024 1:00 PM REFRIGERATOR ASSEMBLER Home Care Visit [facility] [address] [place] [address] Michelle Garnica RN SN - HOME VISIT 06/13/2024 3:45 AM REFRIGERATOR ASSEMBLER Home Care Visit [facility] [address] [place] [phone] Kristie Perera RN SN - WOUND/OSTOMY CHART CONSULT 06/11/2024 11:00 AM REFRIGERATOR ASSEMBLER Home Care Visit [facility] [address] [place] [phone] Kelsy Yi, FRANCIA SN - OASIS START OF CARE 06/11/2024 Telephone [facility] [address] [place] [address] Kelsy Yi, main line assembler (Need ongoing orders for home health) 06/11/2024 Plan of Care Documentation [facility] [address] [place] [phone] 06/09/2024 Home Care Visit [facility] [address] [place] [phone] Danitza Strange RN CARE COORDINATION 06/09/2024 Patient Outreach [facility] [address] [place] [address] Sharri Osei, FRANCIA Hospital F/U; Primary RN Care Management (LACE 78) 06/07/2024 Travel 06/05/2024 7:20 AM REFRIGERATOR ASSEMBLER - 06/05/2024 8:31 AM REFRIGERATOR ASSEMBLER Surgery [address] [place] [address] Pihllip Hutton, ENEDELIA LEFT PARTIAL HALLUX AMPUTATION 06/05/2024 7:12 AM REFRIGERATOR ASSEMBLER Anesthesia Event [address] [place] [address] Magalis John MD Schumacher, Donna Mae Brockman, JUDIE 06/04/2024 Orders Only [facility] [address] [facility] [address] [place] [phone] [facility] <No scans attached> 06/04/2024 Orders Only [facility] [address] [place] [phone] [facility] <No scans attached> 06/03/2024 1:41 PM REFRIGERATOR ASSEMBLER Anesthesia Event [address] [place] [address] Dominguez Gomez MD Schulte, Whitney R, [facility] 06/03/2024 Travel 05/31/2024 Travel 05/25/2024 4:55 AM REFRIGERATOR ASSEMBLER - 06/08/2024 2:56 PM REFRIGERATOR ASSEMBLER Hospital Encounter [address] [place] [address] s, U Hospitalist [facility] Sheyla Chaudhry MD Thielman, Matthew Malachy, Luís Araujo MD Zamfirescu, MD Sergio Andrea, Phillip Wall DO 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); Hypotension, unspecified hypotension type Discharge Disposition: Home Health 05/25/2024 Travel 05/19/2024 1:00 PM REFRIGERATOR ASSEMBLER Office Visit [facility] [address] [place] [address] Trey Carlson MD Wound Check (on the bottom- has had for about 6 weeks/Has been using butt cream bacitracin and other otc creams ) 05/19/2024 Travel 05/16/2024 Refill [facility] [address] [place] [address] Anna Marie Oglesby, DO Refill Request (clopidogreL (Plavix) 75 mg table//) 04/29/[address] [place] [address] Arnie Jin MD Concerns 04/19/2024 10:30 AM REFRIGERATOR ASSEMBLER Office Visit [facility] [address] [place] [phone] Arnie Jin MD Follow Up (Surgery canceled [...] on file Legal Sex Male 5:26 AM REFRIGERATOR ASSEMBLER Gender Identity Not on file Sexual Orientation Not on file Occupation Industry Job Start Date Job End Date retired Not on file Not on file Not on file Obstetrics History Last Filed Vital Signs Vital Sign Reading Time Taken Comments Blood Pressure 132/62 07/09/2024 11:30 AM REFRIGERATOR ASSEMBLER Pulse 71 07/09/2024 11:25 AM REFRIGERATOR ASSEMBLER Temperature 36.8 C (98.3 F) 07/09/2024 11:25 AM REFRIGERATOR ASSEMBLER Respiratory Rate 18 07/09/2024 11:25 AM REFRIGERATOR ASSEMBLER Oxygen Saturation 98% 07/09/2024 11:25 AM REFRIGERATOR ASSEMBLER Inhaled Oxygen Concentration - - Weight 86.2 kg (190 lb) 07/09/2024 11:25 AM REFRIGERATOR ASSEMBLER Height 182.9 cm (6') 06/11/2024 11:20 AM REFRIGERATOR ASSEMBLER Body Mass Index 25.77 06/11/2024 11:20 AM REFRIGERATOR ASSEMBLER Plan of Treatment Upcoming Encounters Date Type Department Care Team (Late st Contact Info) Description 07/12/2024 9:00 AM REFRIGERATOR ASSEMBLER Home Care Visit [facility] [address] [place] [address] 07/12/2024 1:00 PM REFRIGERATOR ASSEMBLER Home Care Visit [facility] [address] [place] [phone] Anibal Avina, OT [address] [facility] [place] [address] 07/15/2024 4:00 AM REFRIGERATOR ASSEMBLER Home Care Visit [facility] [address] [place] [address] Kelsy Yi, FRANCIA 07/19/2024 11:00 AM REFRIGERATOR ASSEMBLER Office Visit [facility] [address] [place] [address] Anna Marie Oglesby, DO [address] [place] [address] 07/20/2024 2:30 PM REFRIGERATOR ASSEMBLER Office Visit [facility] [address] [place] [phone] Trang Monroy MBBS [address] [place] [address] 07/21/2024 1:00 PM REFRIGERATOR ASSEMBLER Appointment [facility] [address] [place] [address] 07/21/2024 1:45 PM REFRIGERATOR ASSEMBLER Appointment [facility] [address] [facility] [address] [place] [address] 08/09/2024 10:30 AM REFRIGERATOR ASSEMBLER Office Visit [facility] [address] [place] [address] Braulio Philippe DPM [address] [place] [address] 10/14/2024 Cardiac Device Check [facility] [phone] Health Maintenance Due Date Last Done Comments [...] history exists Medical Devices Implanted Type Area Survey Research Manager Device Identifier Shelf Expiration Date Model / Serial / Lot Screw Sm Joint 3.5x80mm Os Slf Tppng Bob - [id number] Implanted:Qty: 1 on 04/15/2015 by Rj Bui MD at [facility] Left: Leg [employer] [id number]# / / Screw Sm Joint 4x85mm [employer] Lock Slf Tppng [address] - [id number] Implanted:Qty: 1 on 04/15/2015 by Rj Bui MD at [facility] Left: Leg [employer] [id number]# / / Screw Sm Joint 3.5x75mm Os Slf Tppng Bob - [id number] Implanted:Qty: 1 on 04/15/2015 by Rj Bui MD at [facility] Left: Leg [employer] [id number]# / / Screw Sm Joint 3.5x85mm Os Slf Tppng Bob - [id number] Implanted:Qty: 1 on 04/15/2015 by Rj Bui MD at [facility] Left: Leg [employer] [id number]# / / Plate Tib Lt 10 Hole [employer] Lateral - [id number] Implanted:Qty: 1 on 04/15/2015 by Rj Bui MD at [facility] Left: Leg [employer] [id number]# / / Screw Sm Joint 3.5x28mm Os Slf Tppng Bob - [id number] Implanted:Qty: 1 on 04/15/2015 by Rj Bui MD at [facility] Left: Leg [employer] [id number]# / / Screw Sm Joint 3.5x30mm Os Slf Tppng Bob - [id number] Implanted:Qty: 1 on 04/15/2015 by Rj Bui MD at [facility] Left: Leg [employer] [id number]# / / Screw Sm Joint 3.5x32mm Os Slf Tppng Bob - [id number] Implanted:Qty: 1 on 04/15/2015 by Rj Bui MD at [facility] Left: Leg [employer] [id number]# / / Screw Sm Joint 4x26mm [employer] Lock Slf Tppng [address] - [id number] Implanted:Qty: 1 on 04/15/2015 by Rj Bui MD at [facility] Left: Leg [employer] [id number]# / / Explanted Type Area Survey Research Manager Device Identifier Shelf Expiration Date Model / Serial / Lot K-Wire [employer] 10pk - [id number] Explanted:Qty: 2 on 04/15/2015 at [facility] Left: Leg [employer] [id number]# / / Procedures Procedure Name Priority Date/Time Associated Diagnosis Comments US CAROTID DUPLEX BILATERAL Routine 06/28/2024 3:35 PM REFRIGERATOR ASSEMBLER Bilateral carotid artery stenosis GLUCOSE METER Timed 06/08/2024 8:11 AM REFRIGERATOR ASSEMBLER SCAN-CARDIAC STRIP 06/08/2024 12 :57 AM REFRIGERATOR ASSEMBLER GLUCOSE METER Timed 06/07/2024 9:02 PM REFRIGERATOR ASSEMBLER SCAN-CARDIAC STRIP 06/07/2024 4: 16 PM REFRIGERATOR ASSEMBLER PLATELET COUNT Today 06/07/2024 10:53 AM REFRIGERATOR ASSEMBLER BASIC METABOLIC PANEL Early AM 06/07/2024 10:53 AM REFRIGERATOR ASSEMBLER SCAN-CARDIAC STRIP 06/07/2024 10 :39 AM REFRIGERATOR ASSEMBLER GLUCOSE METER Timed 06/07/2024 7:58 AM REFRIGERATOR ASSEMBLER GLUCOSE METER Timed 06/06/2024 9:30 PM REFRIGERATOR ASSEMBLER GLUCOSE METER Timed 06/06/2024 5:06 PM REFRIGERATOR ASSEMBLER SCAN-CARDIAC STRIP 06/06/2024 4: 02 PM REFRIGERATOR ASSEMBLER GLUCOSE METER Timed 06/06/2024 12:14 PM REFRIGERATOR ASSEMBLER GLUCOSE METER Timed 06/06/2024 8:20 AM REFRIGERATOR ASSEMBLER SCAN-CARDIAC STRIP 06/05/2024 4: 51 PM REFRIGERATOR ASSEMBLER GLUCOSE METER Timed 06/05/2024 4:[address] HEAD BRAIN WO STAT 06/05/2024 4:00 PM REFRIGERATOR ASSEMBLER SCAN-CARDIAC STRIP 06/05/2024 2: 52 PM REFRIGERATOR ASSEMBLER SCAN-CARDIAC STRIP 06/05/2024 2: 52 PM REFRIGERATOR ASSEMBLER XR FOOT 3 VIEWS LEFT PORTABLE Routine 06/05/2024 8:56 AM REFRIGERATOR ASSEMBLER TISSUE CULTURE, STAIN (AEROBIC) Today 06/05/2024 7:42 AM REFRIGERATOR ASSEMBLER ANAEROBIC CULTURE Today 06/05/2024 7:4 2 AM REFRIGERATOR ASSEMBLER PATH TISSUE EXAM Today 06/05/2024 7:40 AM REFRIGERATOR ASSEMBLER GLUCOSE METER Timed 06/05/2024 7:11 AM REFRIGERATOR ASSEMBLER AMPUTATION TOE 06/05/2024 7:02 AM REFRIGERATOR ASSEMBLER LEFT HALLUX INFECTION Case Notes SAGITTAL SAW GLUCOSE METER Timed 06/04/2024 10:57 PM REFRIGERATOR ASSEMBLER SCAN-CARDIAC STRIP 06/04/2024 8: 40 PM REFRIGERATOR ASSEMBLER SCAN-CARDIAC STRIP 06/04/2024 8: 40 PM REFRIGERATOR ASSEMBLER GLUCOSE METER Timed 06/04/2024 4:52 PM REFRIGERATOR ASSEMBLER BASIC METABOLIC PANEL Today 06/04/2024 9:54 AM REFRIGERATOR ASSEMBLER GLUCOSE METER Timed 06/04/2024 8:37 AM REFRIGERATOR ASSEMBLER SCAN-CARDIAC STRIP 06/04/2024 8: 15 AM REFRIGERATOR ASSEMBLER SCAN-CARDIAC STRIP 06/04/2024 2: 25 AM REFRIGERATOR ASSEMBLER HEMOGLOBIN STAT 06/03/2024 8:05 PM REFRIGERATOR ASSEMBLER BASIC METABOLIC PANEL Today 06/03/2024 8:05 PM REFRIGERATOR ASSEMBLER GLUCOSE METER Timed 06/03/2024 7:36 PM REFRIGERATOR ASSEMBLER HCHG ACTIVATED CLOTTING TM CV Timed 06/03/2024 3:09 PM REFRIGERATOR ASSEMBLER HCHG ACTIVATED CLOTTING TM CV Timed 06/03/2024 2:38 PM REFRIGERATOR ASSEMBLER GLUCOSE METER Timed 06/03/2024 12:30 PM REFRIGERATOR ASSEMBLER CBC W PLT NO DIFF Early AM 06/03/2024 9:5 9 AM REFRIGERATOR ASSEMBLER SCAN-CARDIAC STRIP 06/03/2024 9: 43 AM REFRIGERATOR ASSEMBLER GLUCOSE METER Timed 06/03/2024 8:12 AM REFRIGERATOR ASSEMBLER GLUCOSE METER Timed 06/02/2024 9:05 PM REFRIGERATOR ASSEMBLER IR PICC LINE Routine 06/02/2024 3:26 PM REFRIGERATOR ASSEMBLER GLUCOSE METER Timed 06/02/2024 1:39 PM REFRIGERATOR ASSEMBLER MR FOOT LEFT WO Routine 06/02/2024 11:30 AM REFRIGERATOR ASSEMBLER SCAN-CARDIAC STRIP 06/02/2024 9: 44 AM REFRIGERATOR ASSEMBLER GLUCOSE METER Timed 06/02/2024 7:59 AM REFRIGERATOR ASSEMBLER GLUCOSE METER Timed 06/02/2024 6:58 AM REFRIGERATOR ASSEMBLER HEMOGLOBIN Early AM 06/02/2024 6:15 AM REFRIGERATOR ASSEMBLER WHITE BLOOD COUNT Early AM 06/02/2024 6:1 5 AM REFRIGERATOR ASSEMBLER BASIC METABOLIC PANEL Early AM 06/02/2024 6:15 AM REFRIGERATOR ASSEMBLER GLUCOSE METER Timed 06/01/2024 10:09 PM REFRIGERATOR ASSEMBLER US ARTERIAL LOWER EXTREMITY W RITA BILATERAL Routine 06/01/2024 8:15 PM REFRIGERATOR ASSEMBLER GLUCOSE METER Timed 06/01/2024 5:09 PM REFRIGERATOR ASSEMBLER GLUCOSE METER Timed 06/01/2024 8:28 AM REFRIGERATOR ASSEMBLER SCAN-CARDIAC STRIP 06/01/2024 7: 51 AM REFRIGERATOR ASSEMBLER VANCOMYCIN Early AM 06/01/2024 6:29 AM REFRIGERATOR ASSEMBLER HEMOGLOBIN Early AM 06/01/2024 6:29 AM REFRIGERATOR ASSEMBLER WHITE BLOOD COUNT Early AM 06/01/2024 6:2 9 AM REFRIGERATOR ASSEMBLER BASIC METABOLIC PANEL Early AM 06/01/2024 6:29 AM REFRIGERATOR ASSEMBLER GLUCOSE METER Timed 05/31/2024 11:03 PM REFRIGERATOR ASSEMBLER GLUCOSE METER Timed 05/31/2024 6:20 PM REFRIGERATOR ASSEMBLER ANAEROBIC CULTURE Today 05/31/2024 4:3 3 PM REFRIGERATOR ASSEMBLER AEROBIC BACTERIAL CULTURE, STAIN Today 05/31/2024 4:33 PM REFRIGERATOR ASSEMBLER XR FOOT 3 VIEWS LEFT SUZI 05/31/2024 1:53 PM REFRIGERATOR ASSEMBLER ECHO TTE COMPLETE WO CONTRAST Routine 05/31/2024 12:49 PM REFRIGERATOR ASSEMBLER GLUCOSE METER Timed 05/31/2024 11:55 AM REFRIGERATOR ASSEMBLER GLUCOSE METER Timed 05/31/2024 8:57 AM REFRIGERATOR ASSEMBLER SCAN-CARDIAC STRIP 05/31/2024 7: 47 AM REFRIGERATOR ASSEMBLER HEMOGLOBIN A1C SUZI 05/31/2024 7:21 AM REFRIGERATOR ASSEMBLER PLATELET COUNT SUZI 05/31/2024 7:21 AM REFRIGERATOR ASSEMBLER MAGNESIUM Add On 05/31/2024 7:21 AM REFRIGERATOR ASSEMBLER HEMOGLOBIN Early AM 05/31/2024 7:21 AM REFRIGERATOR ASSEMBLER WHITE BLOOD COUNT Early AM 05/31/2024 7:2 1 AM REFRIGERATOR ASSEMBLER BASIC METABOLIC PANEL Early AM 05/31/2024 7:21 AM REFRIGERATOR ASSEMBLER GLUCOSE METER Timed 05/30/2024 5:15 PM REFRIGERATOR ASSEMBLER SCAN-CARDIAC STRIP 05/30/2024 4: 52 PM REFRIGERATOR ASSEMBLER GLUCOSE METER Timed 05/30/2024 1:04 PM REFRIGERATOR ASSEMBLER SCAN CORRESP-IMAGING 05/30/2024 12:50 PM REFRIGERATOR ASSEMBLER SCAN CORRESP-EKG RESULTS 05/30/2024 12:28 PM REFRIGERATOR ASSEMBLER HEMOGLOBIN Early AM 05/30/2024 8:42 AM REFRIGERATOR ASSEMBLER WHITE BLOOD COUNT Early AM 05/30/2024 8:4 2 AM REFRIGERATOR ASSEMBLER BASIC METABOLIC PANEL Early AM 05/30/2024 8:42 AM REFRIGERATOR ASSEMBLER GLUCOSE METER Timed 05/30/2024 8:09 AM REFRIGERATOR ASSEMBLER SCAN-CARDIAC STRIP 05/30/2024 7: 29 AM REFRIGERATOR ASSEMBLER GLUCOSE METER Timed 05/29/2024 8:40 PM REFRIGERATOR ASSEMBLER GLUCOSE METER Timed 05/29/2024 5:02 PM REFRIGERATOR ASSEMBLER GLUCOSE METER Timed 05/29/2024 11:58 AM REFRIGERATOR ASSEMBLER SCAN-CARDIAC STRIP 05/29/2024 8: 32 AM REFRIGERATOR ASSEMBLER GLUCOSE METER Timed 05/29/2024 7:50 AM REFRIGERATOR ASSEMBLER PRO-BNP SUZI 05/29/2024 5:14 AM REFRIGERATOR ASSEMBLER HEMOGLOBIN Early AM 05/29/2024 5:14 AM REFRIGERATOR ASSEMBLER WHITE BLOOD COUNT Early AM 05/29/2024 5:1 4 AM REFRIGERATOR ASSEMBLER BASIC METABOLIC PANEL Early AM 05/29/2024 5:14 AM REFRIGERATOR ASSEMBLER GLUCOSE METER Timed 05/28/2024 9:44 PM REFRIGERATOR ASSEMBLER GLUCOSE METER Timed 05/28/2024 6:12 PM REFRIGERATOR ASSEMBLER GLUCOSE METER Timed 05/28/2024 1:01 PM REFRIGERATOR ASSEMBLER SCAN-CARDIAC STRIP 05/28/2024 11 :31 AM REFRIGERATOR ASSEMBLER GLUCOSE METER Timed 05/28/2024 9:07 AM REFRIGERATOR ASSEMBLER ELECTROLYTE PANEL Early AM 05/28/2024 5:0 2 AM REFRIGERATOR ASSEMBLER CBC W PLT NO DIFF Early AM 05/28/2024 5:0 2 AM REFRIGERATOR ASSEMBLER GLUCOSE METER Timed 05/27/2024 4:42 PM REFRIGERATOR ASSEMBLER XR CHEST 1 VIEW PORTABLE STAT 05/27/2024 4:40 PM REFRIGERATOR ASSEMBLER GLUCOSE METER Timed 05/27/2024 12:17 PM REFRIGERATOR ASSEMBLER SCAN-CARDIAC STRIP 05/27/2024 11 :15 AM REFRIGERATOR ASSEMBLER GLUCOSE METER Timed 05/26/2024 9:40 PM REFRIGERATOR ASSEMBLER GLUCOSE METER Timed 05/26/2024 4:52 PM REFRIGERATOR ASSEMBLER GLUCOSE METER Timed 05/26/2024 11:24 AM REFRIGERATOR ASSEMBLER SCAN-CARDIAC STRIP 05/26/2024 10 :29 AM REFRIGERATOR ASSEMBLER GLUCOSE METER Timed 05/26/2024 8:57 AM REFRIGERATOR ASSEMBLER GLUCOSE METER Timed 05/25/2024 5:44 PM REFRIGERATOR ASSEMBLER SCAN-CARDIAC STRIP 05/25/2024 9: 28 AM REFRIGERATOR ASSEMBLER GLUCOSE METER Timed 05/25/2024 8:23 AM REFRIGERATOR ASSEMBLER TROPONIN T (HS) ONE TIME Timed 05/25/2024 7:26 AM REFRIGERATOR ASSEMBLER SCAN-CARDIAC STRIP 05/25/2024 5: 46 AM REFRIGERATOR ASSEMBLER PRO-BNP Today 05/25/2024 5:37 AM REFRIGERATOR ASSEMBLER TROPONIN T (HS) ACUTE W/2HR REFLEX STAT 05/25/2024 5:37 AM REFRIGERATOR ASSEMBLER PROCALCITONIN Today 05/25/2024 5:37 AM REFRIGERATOR ASSEMBLER BASIC METABOLIC PANEL Today 05/25/2024 5:37 AM REFRIGERATOR ASSEMBLER CBC W PLT NO DIFF Today 05/25/2024 5:2 3 AM REFRIGERATOR ASSEMBLER from Last 3 Months Results * US CAROTID DUPLEX BILATERAL (06/28/2024 3:35 PM REFRIGERATOR ASSEMBLER) Anatomical Region Laterality Modality CAROTID, NECK Ultrasound 06/28/2024 3:10 PM REFRIGERATOR ASSEMBLER Narrative 06/29/2024 8:31 AM REFRIGERATOR ASSEMBLER VASCULAR ULTRASOUND REPORT KOREY SERRANO : 1940 Study Date: 06/28/2024 3:10:36 PM Age: 84 years Tech: JA Gender: M Referring MD: SNEHA DE LA CRUZ Site: [facility] Center Study performed: Carotid Indication [...] Accreditation Commission (IAC/Vascular), [email or web address].org/vascular Report generated by [employer]. Final Procedure Note Gary Petersen MD - 06/29/2024 VASCULAR ULTRASOUND REPORT KOREY SERRANO : 1940 Study Date: 06/28/2024 3:10:36 PM Age: 84 years Tech: JA Gender: M Referring MD: SNEHA DE LA CRUZ Site: [facility] V[facility] Center Study performed: Carotid Indication [...] theIntersocietal Accreditation Commission (IAC/Vascular),[email or web address]/vascular Report generated by [employer]. Final us Sneha De La Cruz MD Final R esult * (ABNORMAL) GLUCOSE METER (06/08/2024 8:11 AM REFRIGERATOR ASSEMBLER) Only the most recent of45 resultswithin the time period is included. [facility] Signature GLUCOSE METER 150(H) 65 - 100 mg/dL 06/08/2024 8:20 AM REFRIGERATOR ASSEMBLER [facility] Blood BLOOD SPECIMEN / Unknown 06/08/2024 8:11 AM REFRIGERATOR ASSEMBLER 06/08/2024 8:20 AM REFRIGERATOR ASSEMBLER us Phillip Hill DO CHEMISTRY Aleah l Result [facility] SENDOUT [place] [address]IP [id number] [address] [place] [address] * SCAN-CARDIAC STRIP (06/08/2024 12:57 AM REFRIGERATOR ASSEMBLER) us Scanner OTHER Final Result * SCAN-CARDIAC STRIP (06/07/2024 4:16 PM REFRIGERATOR ASSEMBLER) us Scanner OTHER Final Result * PLATELET COUNT (06/07/2024 10:53 AM [facility]) Only the most recent of2 resultswithin the time period is included. PLATELET COUNT 169 140 - 440 thou/cu mm 06/07/2024 11:07 AM [facility] MPV 10.0 6.5 - 11.0 fL 06/07/2024 11:07 AM [facility] Blood BLOOD SPECIMEN / Unknown Non-Lab Venipuncture / Unknown 06/07/2024 10:53 AM REFRIGERATOR ASSEMBLER 06/07/2024 11:04 AM [facility] us Sheyla Chaudhry MD HEMATOLOGY Final Re sult [facility] SENDOUT INTERNAL ZIP [id number] [address] [place] [address] * (ABNORMAL) BASIC METABOLIC PANEL (06/07/2024 10:53 AM [facility]) Only the most recent of9 resultswithin the time period is included. SODIUM 135(L) 136 - 145 mmol/L 06/07/2024 11:25 AM [facility] POTASSIUM 4.1 3.5 - 5.1 mmol/L 06/07/2024 11:25 AM [facility] CHLORIDE 96(L) 98 - 107 mmol/L 06/07/2024 11:25 AM [facility] CO2,TOTAL 28 22 - 29 mmol/L 06/07/2024 11:25 AM [facility] ANION GAP 11 5 - 18 06/07/2024 11:25 AM [facility] GLUCOSE 111(H) 70 - 99 mg/dL 06/07/2024 11:25 AM [facility] CALCIUM 8.8 8.8 - 10.4 mg/dL 06/07/2024 11:25 AM [facility] Comment: Reference ranges for this test were updated on 04/12/2024 to reflect our healthy population more accurately. Reference range changes are not retroactively applied to results, but previous results using the same methodology can be interpreted in the context of the new reference range. BUN 35(H) 8 - 23 mg/dL 06/07/2024 11:25 AM [facility] CREATININE 4.83(H) 0.70 - 1.20 mg/dL 06/07/2024 11:25 AM [facility] BUN/CREAT RATIO 7(L) 10 - 20 11:25 AM [facility] eGFR 11(L) >90 mL/min/1. 73m2 06/07/2024 11:25 AM [facility] Comment:As of 2021, eG FR is calculated by the CKD-EPI creatinine equation without race adjustment. eGFR can be influenced by muscle mass, exercise, and diet. The reported eGFR is an estimation only and is only applicable if the renal function is stable. Blood BLOOD SPECIMEN / Unknown Non-Lab Venipuncture / Unknown 06/07/2024 10:53 AM [facility] 06/07/2024 11:04 AM [facility] Phillip Pack DO CHEMISTRY Final Resul t [facility] SENDOUT INTERNAL [place] [id number] [address] [place] [address] * SCAN-CARDIAC STRIP (06/07/2024 10:39 AM REFRIGERATOR ASSEMBLER) us Scanner OTHER Final Result * SCAN-CARDIAC STRIP (06/06/2024 4:02 PM REFRIGERATOR ASSEMBLER) us Scanner OTHER Final Result * SCAN-CARDIAC STRIP (06/05/2024 4:51 PM REFRIGERATOR ASSEMBLER) us Scanner OTHER Final Result * CT HEAD BRAIN WO (06/05/2024 4:00 PM REFRIGERATOR ASSEMBLER) Anatomical Region Laterality Modality HEAD, BRAIN Computed Tomogra phy 06/05/2024 4:00 PM REFRIGERATOR ASSEMBLER Impressions 06/05/2024 4:51 PM REFRIGERATOR ASSEMBLER 1. No CT evidence for acute intracranial process. 2. Brain atrophy and presumed chronic microvascular ischemic changes as above. Narrative 06/05/2024 4:51 PM REFRIGERATOR ASSEMBLER For Patients: As a result of the 21st Century Cures Act, medical imaging exams and procedure reports are released immediately into your electronic medical record. You may view this report before your referring provider. If you have questions, please contact your health care provider. EXAM: CT HEAD BRAIN WO LOCATION: [facility] MEDICAL IMAGING DATE: 06/05/2024 INDICATION: Mental [...] provider. 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 No new bony erosive change to suggest osteomyelitis. 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 Osteopenia. No acute fracture. Arteriovascular calcifications. Narrative 06/05/2024 9:34 AM REFRIGERATOR ASSEMBLER For Patients: As a result of the Cures Act, medical imaging exams and procedure reports are released immediately into your electronic medical record. You may view this report before your referring provider. If you have questions, please contact your health care provider. EXAM: XR FOOT 3 VIEWS LEFT PORTABLE LOCATION: [facility] MEDICAL IMAGING DATE: 06/05/2024 INDICATION: Interval [...] TISSUE CULTURE, STAIN (AEROBIC) (06/05/2024 7:42 AM REFRIGERATOR ASSEMBLER) CULTURE RESULT(A) 06/08/2024 9:33 AM REFRIGERATOR ASSEMBLER [facility]- NTRAL LABORATORY CULTURE 1+ Staphylococcus aureus 06/08/2024 9:33 AM REFRIGERATOR ASSEMBLER [facility]- NTRMN LABORATORY GRAM STAIN 1+ PMNs 06/08/2024 9:33 AM REFRIGERATOR ASSEMBLER [facility] GRAM STAIN No Epithelial cells 06/08/2024 9:33 AM REFRIGERATOR ASSEMBLER [facility] GRAM STAIN 1+ RBCs 06/08/2024 9:33 AM REFRIGERATOR ASSEMBLER [facility] GRAM STAIN No organisms seen 025 9:33 AM REFRIGERATOR ASSEMBLER [facility] GRAM STAIN Gram stain performed by [place] 06/08/2024 9:33 AM REFRIGERATOR ASSEMBLER [facility] Bone (Left Great Toe) Non-Blood / Unknown 06/05/2024 7:42 AM REFRIGERATOR ASSEMBLER 06/05/2024 8:36 AM REFRIGERATOR ASSEMBLER Narrative Organism Antibiotic Method Susceptibility Staphylococcus aureus OXACILLIN <=0.25: S Comment:Oxacillin wetzel sceptible should not be interpreted as penicillin or amoxicillin susceptible. Staphylococcus aureus CLINDAMYCIN 0.25: S Staphylococcus aureus DOXYCYCLINE <=0.5: S Staphylococcus aureus CEFAZOLIN S Staphylococcus aureus TRIMETHOPRIM/SULF <=0.5/9.5: S Phillip Hutton [facility] MICROBIOLOGY Final Resul t [facility] [address] [place] [address], [facility] SENDOUT INTERNAL Z[address] [place] [address] * ANAEROBIC CULTURE (06/05/2024 7:42 AM REFRIGERATOR ASSEMBLER) Only the most recent of2 resultswithin the time period is included. CULTURE No anaerobes isolated 06/10/2024 10:03 AM REFRIGERATOR ASSEMBLER [facility]OR[facility]-SIM TRAL LABORATORY Bone (Left Great Toe) Non-Blood / Unknown 06/05/2024 7:42 AM REFRIGERATOR ASSEMBLER 06/05/2024 8:36 AM REFRIGERATOR ASSEMBLER us Phillip Hutton DPM MICROBIOLOGY Final Resul t [facility] [address] [place] [address], [place] * PATH TISSUE EXAM (06/05/2024 7:40 AM REFRIGERATOR ASSEMBLER) Case Report Pathology Report Case: [id number] Authorizing Provider: Phillip Hutton DPM Collected: 06/05/2024 0740 Ordering Location: [facility] Received: 06/06/2024 0741 Pathologist: Zohra Lou DO Specimen: Left Great Toe, LEFT GREAT HALLUX 06/09/2024 11:27 AM REFRIGERATOR ASSEMBLER [facility] LABORATORY-C ENTRAL LABORATORY Final Diagnosis A) FOOT, LEFT, GREAT TOE/HALLUX, AMPUTATION: 1. Focally acute and chronic osteomyelitis 2. Overlying gangrenous ulceration is present 3. Presumed proximal bone margin is negative for osteomyelitis (see comment) 4. Negative for malignancy 06/09/2024 11:27 AM [facility] Comment The specimen in this case was submitted in multiple fragments, and the bone margin was not separately submitted or designated specifically. Gross examination reveals one bone fragment with a flattened surface which is presumed to be the true margin, and this fragment is negative for osteomyelitis. 06/09/2024 11:27 AM [facility] LABORATORY-C ENTRAL LABORATORY Clinical Information Mr. Serrano is a 84 y.o. who has a history of diabetes mellitus, chronic kidney disease, peripheral arterial disease and left lower extremity wounds with suspected osteomyelitis of the distal and proximal phalanx of the left great toe. The patient underwent partial hallux amputation of the left foot. 06/09/2024 11:27 AM [facility]AL [facility] Gross Description A) Received in [...] on cut surface. No lesion is identified. Assistant Store Manager sections are submitted: 1. Great toe: skin ulcer to nearest margin and bone underlying ulcer (decal) 2-3. Two pieces of flattened bone fragments: Presumed en face bony margin in 2 (decal) 4. Fibrotic soft tissue TTP 06/06/2024 06/09/2024 11:[address] [facility] LABORATORY- ENTRMN LABORATORY Microscopic Description The final diagnosis is based on microscopic examination of appropriate sections of all specimens. 06/09/2024 11:27 AM REFRIGERATOR ASSEMBLER [facility] Additional Information Interpreted at [facility], Central Laboratory - [address] [address] 06/09/2024 11:27 AM REFRIGERATOR ASSEMBLER [facility]- ENTRAL LABORATORY Tissue (Left Great Toe) 06/05/2024 7:40 AM REFRIGERATOR ASSEMBLER 06/06/2024 7:41 AM REFRIGERATOR ASSEMBLER us Phillip Hutton DPStefany PATHOLOGY/CYTOLOGY Final Re sult [facility]TRAL LABORATORY [address] [place] [address], [facility] SENDOUT INTERNAL ZIP [phone] [place] [address] * SCAN-CARDIAC STRIP (06/04/2024 8:40 PM REFRIGERATOR ASSEMBLER) us Scanner OTHER Final Result * SCAN-CARDIAC STRIP (06/04/2024 8:40 PM REFRIGERATOR ASSEMBLER) us Scanner OTHER Final Result * SCAN-CARDIAC STRIP (06/04/2024 8:15 AM REFRIGERATOR ASSEMBLER) us Scanner OTHER Final Result * SCAN-CARDIAC STRIP (06/04/2024 2:25 AM REFRIGERATOR ASSEMBLER) us Scanner OTHER Final Result * (ABNORMAL) Hemoglobin - BARREL BUNG REMOVER AND DUMPER (06/03/2024 8:05 PM REFRIGERATOR ASSEMBLER) Only the most recent of6 resultswithin the time period is included. HEMOGLOBIN 8.0(L) 13.5 - 17.5 g/dL 06/03/2024 8:18 PM REFRIGERATOR ASSEMBLER [facility] MCV 93 80 - 100 fL 06/03/2024 8:18 PM REFRIGERATOR ASSEMBLER [facility] Blood BLOOD SPECIMEN / Unknown Line/Port / Unknown 06/03/2024 8:05 PM REFRIGERATOR ASSEMBLER 06/03/2024 8:12 PM REFRIGERATOR ASSEMBLER Narrative [facility] - 06/03/2024 8:18 PM REFRIGERATOR ASSEMBLER For chest pain, tachycardia, or hypotension present. us Emily Montes De Oca MD HEMATOLOGY Final R esult [facility] SENDOUT INTERNAL ZIP [phone] [place] [address] * (ABNORMAL) ACTIVATED CLOTTING TIME [id number] ACT (06/03/2024 3:09 PM REFRIGERATOR ASSEMBLER) Only the most recent of2 resultswithin the time period is included. ACTIVATED CLOTTING TIME, POCT 211(H) 74 - 125 sec 06/03/2024 3:33 PM REFRIGERATOR ASSEMBLER [facility] Blood BLOOD SPECIMEN / Unknown 06/03/2024 3:09 PM REFRIGERATOR ASSEMBLER 06/03/2024 3:33 PM REFRIGERATOR ASSEMBLER us Emily Montes De Oca MD HEMATOLOGY Final R esult [facility] SENDOUT INTERNAL [address] [phone] [place] [address] * (ABNORMAL) CBC W PLT NO DIFF (06/03/2024 9:59 AM REFRIGERATOR ASSEMBLER) Only the most recent of3 resultswithin the time period is included. WHITE BLOOD COUNT 5.1 4.5 - 11.0 thou/cu mm 06/03/2024 10:14 AM [facility] RED BLOOD COUNT 2.39(L) 4.30 - 5.90 mil/cu mm 06/03/2024 10:14 AM [facility] HEMOGLOBIN 7.6(L) 13.5 - 17.5 g/dL 06/03/2024 10:14 AM [facility] HEMATOCRIT 22.1(L) 37.0 - 53.0 % 06/03/2024 10:14 AM [facility] MCV 93 80 - 100 fL 06/03/2024 10:14 AM [facility] MCH 31.8 26.0 - 34.0 pg 06/03/2024 10:14 AM [facility] MCHC 34.4 32.0 - 36.0 g/dL 06/03/2024 10:14 AM [facility] RDW 14.0 11.5 - 15.5 % 06/03/2024 10:14 AM [facility] PLATELET COUNT 165 140 - 440 thou/cu mm 06/03/2024 10:14 AM [facility] MPV 10.6 6.5 - 11.0 fL 06/03/2024 10:14 AM [facility] NRBC 0.0 % 06/03/2024 10:14 AM [facility] ABS NRBC 0.0 thou /cu mm 06/03/2024 10:14 AM [facility] Blood BLOOD SPECIMEN / Unknown Butterfly / Unknown 06/03/2024 9:59 AM REFRIGERATOR ASSEMBLER 06/03/2024 10:06 AM [facility] Elier ESTRELLA HEMATOLOGY Final Resu lt [facility] SENDOUT INTERNAL ZIP [phone] [place] [address] * SCAN-CARDIAC STRIP (06/03/2024 9:43 AM REFRIGERATOR ASSEMBLER) us Scanner OTHER Final Result * IR PICC LINE (06/02/2024 3:26 PM REFRIGERATOR ASSEMBLER) Anatomical Region Laterality Modality X-Ray Angiograph y, Other, Other 06/02/2024 3:26 PM REFRIGERATOR ASSEMBLER Impressions 06/02/2024 4:05 PM REFRIGERATOR ASSEMBLER Successful placement of PICC line. Narrative 06/02/2024 4:05 PM REFRIGERATOR ASSEMBLER For Patients: As a result of the Cures Act, medical imaging exams and procedure reports are released immediately into your electronic medical record. You may view this report before your referring provider. If you have questions, please contact your health care provider. [facility] LOCATION: [facility] MEDICAL IMAGING DATE: 06/02/2024 PROCEDURE: PERIPHERALLY [...] Prior to the procedure, the surgeon and assistant golf professional performed hand hygiene and wore hat, mask, [...] brachial vein was accessed and a 5 Beninese, 38 cm, double-lumen power PICC Solo peripherally [...] questions, please contact your health care provider. [facility] LOCATION: [facility] MEDICAL [facility]AGING DATE: 06/02/2024 PROCEDURE: PERIPHERALLY [...] drape. Prior to the procedure, thesurgeon and assistant golf professional performed hand hygiene and wore hat, mask, [...] brachial vein was accessed and a 5 Beninese, 38 cm, double-lumenpower PICC Solo peripherally inserted [...] MR FOOT LEFT WO (06/02/2024 11:30 AM REFRIGERATOR ASSEMBLER) Anatomical Region Laterality Modality FOOT L Magnetic Resonan ce, Other 06/02/2024 11:3 0 AM REFRIGERATOR ASSEMBLER Impressions 06/02/2024 11:56 AM REFRIGERATOR ASSEMBLER 1. Soft tissue ulceration at the dorsal [...] radiopaque foreign body. Narrative 06/02/2024 11:56 AM REFRIGERATOR ASSEMBLER For Patients: As a result of the Century Cures Act, medical imaging exams and procedure reports are released immediately into your electronic medical record. You may view this report before your referring provider. If you have questions, please contact your health care provider. EXAM: MR FOOT LEFT WO LOCATION: [facility] MEDICAL IMAGING DATE: 06/02/2024 INDICATION: Ulcer, [...] provider. EXAM: MR FOOT LEFT WO LOCATION: [facility] MEDICAL IMAGING DATE: 06/02/2024 INDICATION: Ulcer, [...] for small radiopaqueforeign body. us Francisca Abel ANALYSIS LEAD MR Final Result * SCAN-CARDIAC STRIP (06/02/2024 9:44 AM REFRIGERATOR ASSEMBLER) us Scanner OTHER Final Result * WHITE BLOOD COUNT (06/02/2024 6:15 AM REFRIGERATOR ASSEMBLER) Only the most recent of5 resultswithin the time period is included. WHITE BLOOD COUNT 5.2 4.5 - 11.0 thou/cu mm 06/02/2024 6:33 AM REFRIGERATOR ASSEMBLER [facility] NRBC 0.0 % 06/02/2024 6:33 AM REFRIGERATOR ASSEMBLER [facility] ABS NRBC 0.0 thou /cu mm 06/02/2024 6:33 AM REFRIGERATOR ASSEMBLER [facility] Blood BLOOD SPECIMEN / Unknown Non-Lab Venipuncture / Unknown 06/02/2024 6:15 AM REFRIGERATOR ASSEMBLER 06/02/2024 6:26 AM REFRIGERATOR ASSEMBLER us Luís Porter MD HEMATOLOGY Fi nal Result [facility] SENDOUT INTERNAL ZIP [phone] [place] [address] * US ARTERIAL LOWER EXTREMITY W RITA BILATERAL (06/01/2024 8:15 PM REFRIGERATOR ASSEMBLER) Anatomical Region Laterality Modality LEGS Ultrasound 06/01/2024 8:15 PM REFRIGERATOR ASSEMBLER Impressions 06/01/2024 8:45 PM REFRIGERATOR ASSEMBLER 1. RIGHT LOWER EXTREMITY: Non calculable RITA [...] stenosis is visualized. Narrative 06/01/2024 8:45 PM REFRIGERATOR ASSEMBLER For Patients: As a result of the Century Cures Act, medical imaging exams and procedure reports are released immediately into your electronic medical record. You may view this report before your referring provider. If you have questions, please contact your health care provider. EXAM: 1. RESTING ANKLE-BRACHIAL INDICES (ABIs) 2. DUPLEX ARTERIAL ULTRASOUND OF THE LOWER EXTREMITIES BILATERALLY LOCATION: [facility] MEDICAL IMAGING DATE: 06/01/2024 INDICATION: Decreased [...] Velocities described below. RIGHT LOWER EXTREMITY (cm/s): CASHIER GENERAL: 88, T PFA: 209, T SFA (proximal): 117, T SFA (mid): 262, B SFA (distal): 73, B Pop A Prox: 35, B Pop A Dist: 45, B HOME SERVICE CONSULTANT Dist: 101, B SULTANA: No significant flow. DPA: No significant flow. (M=monophasic, B=biphasic, T=triphasic) LEFT LOWER EXTREMITY (cm/s): CASHIER GENERAL: 95, T PFA: 205, T SFA (proximal): 149, T SFA (mid): 111, T SFA (distal): 132, T Pop A Prox: 76, B Pop A Dist: 60, M HOME SERVICE CONSULTANT Dist: 45, M SULTANA: No significant flow. [...] ULTRASOUND OF THE LOWER EXTREMITIES BILATERALLY LOCATION: [facility] MEDICAL IMAGING DATE: 06/01/2024 INDICATION: Decreased [...] Velocities described below. RIGHT LOWER EXTREMITY (cm/s): CASHIER GENERAL: 88, T PFA: 209, T SFA (proximal): 117, T SFA (mid): 262, B SFA (distal): 73, B Pop A Prox: 35, B Pop A Dist: 45, B HOME SERVICE CONSULTANT Dist: 101, B SULTANA: No significant flow. DPA: No significant flow. (M=monophasic, B=biphasic, T=triphasic) LEFT LOWER EXTREMITY (cm/s): CASHIER GENERAL: 95, T PFA: 205, T SFA (proximal): 149, T SFA (mid): 111, T SFA (distal): 132, T Pop A Prox: 76, B Pop A Dist: 60, M HOME SERVICE CONSULTANT Dist: 45, M SULTANA: No significant flow. [...] Result * SCAN-CARDIAC STRIP (06/01/2024 7:51 AM REFRIGERATOR ASSEMBLER) us Scanner OTHER Final Result * VANCOMYCIN (06/01/2024 6:29 AM REFRIGERATOR ASSEMBLER) VANCOMYCIN 24.4 ug/mL 06/01/2024 7:26 AM REFRIGERATOR ASSEMBLER [facility] Comment:No Reference Range D efined. DATE OF LAST DOSE,RANDOM Not Given 06/01/2024 7:26 AM REFRIGERATOR ASSEMBLER [facility] TIME OF LAST DOSE,RANDOM Not Given 06/01/2024 7:26 AM REFRIGERATOR ASSEMBLER [facility] Blood BLOOD SPECIMEN / Unknown Venipuncture / Unknown 06/01/2024 6:29 AM REFRIGERATOR ASSEMBLER 06/01/2024 6:58 AM REFRIGERATOR ASSEMBLER us Emily Montes De Oca MD CHEMISTRY Final R esult [facility] SENDOUT INTERNAL ZIP [phone] [place] [address] * (ABNORMAL) AEROBIC BACTERIAL CULTURE, STAIN (05/31/2024 4:33 PM REFRIGERATOR ASSEMBLER) CULTURE RESULT(A) 06/03/2024 11:21 AM REFRIGERATOR ASSEMBLER [facility]- NTRAL LABORATORY CULTURE 3+ Staphylococcus aureus 06/03/2024 11:21 AM REFRIGERATOR ASSEMBLER [facility]- NTRAL LABORATORY CULTURE 3+ Achromobacter xylosoxidans 06/03/2024 11:21 AM REFRIGERATOR ASSEMBLER [facility]- NTRAL LABORATORY CULTURE 3+ Mixed carlos present 06/03/2024 11:21 AM REFRIGERATOR ASSEMBLER [facility]- NTRAL LABORATORY GRAM STAIN 1+ PMNs 06/03/2024 11:21 AM REFRIGERATOR ASSEMBLER [facility] GRAM STAIN No Epithelial cells 06/03/2024 11:21 AM REFRIGERATOR ASSEMBLER [facility] GRAM STAIN 1+ RBCs 06/03/2024 11:21 AM REFRIGERATOR ASSEMBLER [facility] GRAM STAIN 3+ Gram Positive Cocci 06/03/2024 11:21 AM REFRIGERATOR ASSEMBLER [facility] GRAM STAIN Gram stain performed by [place] 06/03/2024 11:21 AM REFRIGERATOR ASSEMBLER [facility] Other (Other) Non-Blood / Unknown 05/31/2024 4:33 PM REFRIGERATOR ASSEMBLER 05/31/2024 4:42 PM REFRIGERATOR ASSEMBLER Narrative [facility] - 06/03/2024 11:21 AM REFRIGERATOR ASSEMBLER Mixed Carlos; No beta-Strep, Strep. pneumoniae, or [...] S Francisca Roman NP MICROBIOLOGY Final Result [facility] [address] [place] [address], [facility] SENDOUT INTERNAL ZIP [address] [place] [address] * XR FOOT 3 VIEWS LEFT (05/31/2024 1:53 PM REFRIGERATOR ASSEMBLER) Anatomical Region Laterality Modality FEET, FOOT L Computed Radiogr aphy 05/31/2024 1:53 PM REFRIGERATOR ASSEMBLER Impressions 05/31/2024 1:59 PM REFRIGERATOR ASSEMBLER Osteopenia. Marked calcified atherosclerosis. Neuropathic changes left midfoot. Findings have progressed since 2011. No evidence of osteomyelitis. Narrative 05/31/2024 1:59 PM REFRIGERATOR ASSEMBLER For Patients: As a result of the Cures Act, medical imaging exams and procedure reports are released immediately into your electronic medical record. You may view this report before your referring provider. If you have questions, please contact your health care provider. EXAM: XR FOOT 3 VIEWS LEFT LOCATION: [facility] MEDICAL IMAGING DATE: 05/31/2024 INDICATION: Left [...] EXAM: XR FOOT 3 VIEWS LEFT LOCATION: [facility]AG[facility] DATE: 05/31/2024 INDICATION: Left foot ulcer COMPARISON: 04/28/2012 IMPRESSION: Osteopenia. Marked calcified atherosclerosis. Neuropathic changes leftmidfoot. Findings have progressed since 2011. No evidence ofosteomyelitis. Francisca Roman NP GENERAL IMAGING Final Result * ECHO TTE COMPLETE WO CONTRAST (05/31/2024 12:49 PM REFRIGERATOR ASSEMBLER) EJECTION FRACTION 40-45% PROSOLV Anatomical Region Laterality Modality Ultrasound 05/31/2024 12:0 6 PM REFRIGERATOR ASSEMBLER Narrative 05/31/2024 1:23 PM [place] [address] Main: [email or web address] Echo Report KOREY SERRANO Careyian ID: [id number] Age: 84 : 1940 Ordering Provider: EMILY MONTES DE OCA Exam Date: 05/31/2024 12:06 Gender: M Air Brake Man: SHIVAM Height: 72 in BSA: 2.06 m [...] ZScore: -0.31 Leidy Stephenson MD (Electronically Signed) [facility] Accredited Site Final Date: 31 May 2024 13:23 ICD-10 Codes: I24.8 Procedure Note Leidy Stephenson MD - 05/31/2024 [place] [address] Main: [email or web address] Transthoracic Echo Report KOREY SERRANO ID: [id number] Age: 84 : 1940 Ordering Provider:EMILY MONTES DE OCA Exam Date: 05/31/2024 12:06 Gender: M Air Brake Man: SHIVAM Height: 72 in BSA: 2.06 m [...] ZScore: -0.31 Leidy Stephenson MD (Electronically Signed) [facility] Accredited Site Final Date: 31 May 2024 13:23 ICD-10 Codes: I24.8 us Anca Ariella Montes De Oca MD ECHO ORD Final R esult * SCAN-CARDIAC STRIP (05/31/2024 7:47 AM REFRIGERATOR ASSEMBLER) us Scanner OTHER Final Result * HEMOGLOBIN A1C (05/31/2024 7:21 AM REFRIGERATOR ASSEMBLER) HEMOGLOBIN A1C SCREENING 4.9 <=6.4 % 05/31/2024 1:53 PM REFRIGERATOR ASSEMBLER [facility] Blood BLOOD SPECIMEN / Unknown Butterfly / Unknown 05/31/2024 7:21 AM REFRIGERATOR ASSEMBLER 05/31/2024 7:44 AM REFRIGERATOR ASSEMBLER Narrative [facility] - 05/31/2024 1:53 PM REFRIGERATOR ASSEMBLER (<5.7%) Normal (5.7% to 6.4%) Indicates prediabetes (>=6.5%) Confirms diabetes Falsely low levels may be seen with: Recent Transfusion, Recent Significant Blood Loss, Hemolytic Diseases, or Falsely elevated levels may be seen with: Untreated Anemias, Splenectomy us Francisca Roman NP CHEMISTRY Final Result [facility] SENDOUT INTERNAL ZIP [phone] [place] [address] * MAGNESIUM (05/31/2024 7:21 AM REFRIGERATOR ASSEMBLER) MAGNESIUM 2.0 1.6 - 2.4 mg/dL 05/31/2024 10:05 AM REFRIGERATOR ASSEMBLER [facility] Blood BLOOD SPECIMEN / Unknown Butterfly / Unknown 05/31/2024 7:21 AM REFRIGERATOR ASSEMBLER 05/31/2024 7:44 AM REFRIGERATOR ASSEMBLER us Anca Ariella Montes De Oca MD CHEMISTRY Final R esult [facility] SENDOUT INTERNAL ZIP [phone] [place] [address] * SCAN-CARDIAC STRIP (05/30/2024 4:52 PM REFRIGERATOR ASSEMBLER) us Scanner OTHER Final Result * SCAN CORRESP-IMAGING (05/30/2024 12:50 PM REFRIGERATOR ASSEMBLER) Anatomical Region Laterality Modality Other Narrative 05/30/2024 12:50 PM REFRIGERATOR ASSEMBLER Ordered by an unspecified provider. us Other Clinical Staff OTHER Final Resul t * SCAN CORRESP-EKG RESULTS (05/30/2024 12:28 PM REFRIGERATOR ASSEMBLER) Narrative 05/30/2024 12:28 PM REFRIGERATOR ASSEMBLER Ordered by an unspecified provider. us Other Clinical Staff OTHER Final Resul t * SCAN-CARDIAC STRIP (05/30/2024 7:29 AM REFRIGERATOR ASSEMBLER) us Scanner OTHER Final Result * SCAN-CARDIAC STRIP (05/29/2024 8:32 AM REFRIGERATOR ASSEMBLER) us Scanner OTHER Final Result * (ABNORMAL) PRO-BNP (05/29/2024 5:14 AM REFRIGERATOR ASSEMBLER) Only the most recent of2 resultswithin the time period is included. PRO-BNP >70,000(H) <450 pg/mL 05/29/2024 12:54 PM REFRIGERATOR ASSEMBLER [facility] Blood BLOOD SPECIMEN / Unknown Butterfly / Unknown 05/29/2024 5:14 AM REFRIGERATOR ASSEMBLER 05/29/2024 5:25 AM REFRIGERATOR ASSEMBLER Narrative [facility] - 05/29/2024 12:54 PM REFRIGERATOR ASSEMBLER The following cut-points have been suggested for [...] Luís Porter MD SEND OUTS nal Result [facility] SENDOUT INTERNAL ZIP [phone] [place] [address] * SCAN-CARDIAC STRIP (05/28/2024 11:31 AM REFRIGERATOR ASSEMBLER) us Scanner OTHER Final Result * (ABNORMAL) ELECTROLYTE PANEL (05/28/2024 5:02 AM REFRIGERATOR ASSEMBLER) SODIUM 135(L) 136 - 145 mmol/L 05/28/2024 6:15 AM [facility] POTASSIUM 4.0 3.5 - 5.1 mmol/L 05/28/2024 6:15 AM [facility] CHLORIDE 97(L) 98 - 107 mmol/L 05/28/2024 6:15 AM [facility] CO2,TOTAL 29 22 - 29 mmol/L 05/28/2024 6:15 AM [facility] ANION GAP 9 5 - 18 05/28/2024 6:15 AM [facility] Blood BLOOD SPECIMEN / Unknown Venipuncture / Unknown 05/28/2024 5:02 AM REFRIGERATOR ASSEMBLER 05/28/2024 5:30 AM [facility] us Ezekiel Soto DO CHEMISTRY Aleah l Result [facility] SENDOUT [place] [address]IP [id number] [address] [place] [address] * XR CHEST 1 VIEW PORTABLE (05/27/2024 4:40 PM REFRIGERATOR ASSEMBLER) Anatomical Region Laterality Modality HEART, THORAX, CHEST Computed Ra diography 05/27/2024 4:40 PM REFRIGERATOR ASSEMBLER Impressions 05/27/2024 4:55 PM REFRIGERATOR ASSEMBLER Sternotomy. Right pacemaker. Small left effusion with atelectasis. No right effusion. Bilateral calcified granulomas. Right lung clear. Calcified mediastinal and bilateral hilar lymph nodes. Narrative 05/27/2024 4:55 PM REFRIGERATOR ASSEMBLER For Patients: As a result of the Cures Act, medical imaging exams and procedure reports are released immediately into your electronic medical record. You may view this report before your referring provider. If you have questions, please contact your health care provider. EXAM: XR CHEST 1 VIEW PORTABLE LOCATION: [facility] MEDICAL [facility]AG[facility] DATE: 05/27/2024 INDICATION: SOB [...] EXAM: XR CHEST 1 VIEW PORTABLE LOCATION: [facility] MED[facility] DATE: 05/27/2024 INDICATION: SOB Other re-assess pleural effusion COMPARISON: 02/26/23 xray, 11/18/19 xray IMPRESSION: Sternotomy. Right pacemaker. Small left effusion with atelectasis. Noright effusion. Bilateral calcified granulomas. Right lung clear.Calcified mediastinal and bilateral hilar lymph nodes. Ezekiel Soto DO GENERAL IMAGING Aleah l Result * SCAN-CARDIAC STRIP (05/27/2024 11:15 AM REFRIGERATOR ASSEMBLER) us Scanner OTHER Final Result * SCAN-CARDIAC STRIP (05/26/2024 10:29 AM REFRIGERATOR ASSEMBLER) us Scanner OTHER Final Result * SCAN-CARDIAC STRIP (05/25/2024 9:28 AM REFRIGERATOR ASSEMBLER) us Scanner OTHER Final Result * (ABNORMAL) TROPONIN T (HS) ONE TIME (05/25/2024 7:26 AM REFRIGERATOR ASSEMBLER) TROPONIN T HS 248(H) 6-15 ng/L ng/L 05/25/2024 8:23 AM REFRIGERATOR ASSEMBLER [facility] Blood BLOOD SPECIMEN / Unknown Venipuncture / Unknown 05/25/2024 7:26 AM REFRIGERATOR ASSEMBLER 05/25/2024 8:01 AM REFRIGERATOR ASSEMBLER us Sheyla Chaudhry MD CHEMISTRY Final Re sult [facility] SENDOUT [place]NAL [address]IP [id number] [address] [place] [address] * SCAN-CARDIAC STRIP (05/25/2024 5:46 AM REFRIGERATOR ASSEMBLER) us Scanner OTHER Final Result * (ABNORMAL) TROPONIN T (HS) ACUTE W/2HR REFLEX (05/25/2024 5:37 AM REFRIGERATOR ASSEMBLER) TROPONIN T HS 256(H) 6-15 ng/L ng/L 05/25/2024 6:17 AM REFRIGERATOR ASSEMBLER [facility] Blood BLOOD SPECIMEN / Unknown Venipuncture / Unknown 05/25/2024 5:37 AM REFRIGERATOR ASSEMBLER 05/25/2024 5:38 AM REFRIGERATOR ASSEMBLER Narrative [facility] - 05/25/2024 6:17 AM REFRIGERATOR ASSEMBLER hs-cTnT (Elecsys Troponin T Gen 5) concentration [...] Sheyla Chaudhry MD CHEMISTRY Final Re sult [facility] SEND[facility] [place]NAL [place] [id number] [place] [id number] * PROCALCITONIN (05/25/2024 5:37 AM REFRIGERATOR ASSEMBLER) PROCALCITONIN 0.47 ng/ml 05/25/2024 6:18 AM REFRIGERATOR ASSEMBLER [facility] Blood BLOOD SPECIMEN / Unknown Venipuncture / Unknown 05/25/2024 5:37 AM REFRIGERATOR ASSEMBLER 05/25/2024 5:38 AM REFRIGERATOR ASSEMBLER [facility] - 05/25/2024 6:18 AM REFRIGERATOR ASSEMBLER Procalcitonin for initial assessment of Lower Respiratory [...] Chaudhry MD SEND OUTS Final Re sult [facility] SENDOUT [place]NAL [address]IP [id number] [address] [place] [address] from Last 3 Months Insurance [id number] [facility] [id number] MEDICARE RR PART A HB ONLY [facility] MR/MSHO [address] [place] [id number] [facility] [address] [place] [phone] Advance Directives Documents on File Type Date Recorded Patient Assistant Store Manager Expl anation Power of Strap Buckler 06/05/2019 06/05/2019 Healthcare Directive 06/05/2019 019 Power of Strap Buckler 07/19/2006 * Full Code (Latest Code Status [...] 11:52 AM 11/02/2018 9:20 PM Care Teams Newspaper Publisher Relationship Specialty Start Date End Date Anna Marie Og[place] [address] PCP - General Family Practice 10/06/22 [facility] [address], [place] [address] 07/06/24
--- OUTSIDE RECORDS SUMMARY | 2024-07-12 01:12 | XMS_ITS | Continuity of Care Document ---
Author Name [facility] Organization [facility] Care Team Providers Care Activity Assistant Name Role Phone [facility] Unavailable Unavailable Problems Combined list of problems from Department of Defense and Veterans 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 It does not include entries that were removed or entered in error. Problem Status Onset Date Problem Type Date of Resolution Comments Source Adenoma of large intestine Active Condition Jan 17, 2005 Entered By: TOMMY SARMIENTO Comment: colonoscopy and polypectomy 12/10, tubular adenoma at [facility] Cataract, Senile, Unsp Active Condition [facility] Chronic cough Active Condition [facility] Chronic obstructive lung disease Active Condition [facility] Chronic rhinitis Active Condition [facility] Coronary arteriosclerosis Active Condition Nov 10 7 Entered By: LIZZETTE WEI Comment: s/p ISGAc2n at [facility] [place] in 07/15 [facility] Diabetes mellitus Active Condition [facility] Diabetic neuropathy Active Condition [facility] Diabetic renal disease Active Condition Dec 02, 2018 Entered By: CARLOS DALTON Comment: 10/2018: started hemodialysis @ [facility] in [facility] 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 [facility] Dyslipidemia Active Condition [facility] End-stage renal disease Active Condition [facility] Essential hypertension Active Condition [facility] Exposure to potentially hazardous substance Active Condition Dec 18, 2022 Entered By: CORRINE MATHEWS Comment: Asbestos [facility] Ganglion of wrist Active Condition [facility] Gastroesophageal reflux disease without esophagitis Active Condition [facility] Hemorrhoid Active Condition [facility] Hyperparathyroidism due to renal insufficiency Active Condition [facility] Hypothyroidism Active Condition [facility] Incontinence of feces Active Condition [facility] Indwelling catheter inserted Active Condition [facility] Obstructive Sleep Apnea of Adult (SCT [id number]) Active Condition October 28, 2022 Entered By: KINGS ROCHA Comment: APAP: 10-20, Ramp: 5x10 min, [place] [facility] Oropharyngeal dysphagia Active Condition Dec 14, 2022 Entered By: CORRINE MATHEWS Comment: 2013 [facility] eval in chart [facility] Psoriasis Nos [facility] Shared care - [employer] hcm consultant and GP Active Condition Dec 02 Entered By: CARLOS DALTON Comment: [facility] [phone] ov 2020 Entered By: CARLOS DALTON Comment: Virtual Assistant For [employer]vertisers: Dr James Pérez [phone] ov 2020 Entered By: CARLOS DALTON Comment: [facility] Cough (ICD-9-CM 786.2) Inactive Condition 03/23/2013 [facility] Diabetic Foot Ulcer (ICD-9-CM 250.80/707.8) Inactive Condition 03/23/2013 [facility] Diagnosis: ICD-10-CM I25.10 Athscl heart disease of [place] coronary artery w/o ang pctrs Active Diagnosis [facility] Diagnosis: ICD-10-CM R26.89 Other abnormalities of gait and mobility Active Diagnosis [facility] Diagnosis: ICD-10-CM M79.646 Pain in unspecified finger(s) Active Diagnosis [facility] Diagnosis: ICD-10-CM H90.3 Sensorineural hearing loss, bilateral Active Diagnosis [facility] Diagnosis: ICD-10-CM Z01.118 Encntr for exam of ears and hearing w oth abnormal findings Active [facility] Diagnosis: ICD-10-CM H04.129 Dry eye syndrome of unspecified lacrimal gland Active Diagnosis [facility] Diagnosis: ICD-10-CM Z46.1 Encounter for fitting and adjustment of hearing aid Active Diagnosis [facility] Diagnosis: ICD-10-CM N18.6 End stage renal disease Active Diagnosis [facility] Diagnosis: ICD-10-CM R26.9 Unspecified abnormalities of gait and mobility Active Diagnosis [facility] Diagnosis: ICD-10-CM J44.9 Chronic obstructive pulmonary disease, unspecified [facility] Diagnosis: ICD-10-CM Z65.8 Oth problems related to psychosocial circumstances Active Diagnosis [facility] Medications Combined list of outpatient medications from [...] RELIEF). RESPIR ATORY (INHAL ATION) ACTIVE 11/09/2024 [id number] 5 CASANDRA DALTON 2023 2 [facility] ALBUTEROL 90MCG/ACTUA T (CFC-F) INHL,ORAL,8 .5GM DOSE COUNTER INHALE 2 PUFFS BY INHALATI ON EVERY 4 HOURS NEEDED FOR BREATHIN G SHAKE WELL (FOR IMMEDIAT E RELIEF). RESPIR ATORY (INHAL ATION) DISCONT INUED 08/21/2023 [id number] 4 CASANDRA DALTON 2022 2 [facility] AZELASTINE HCL 137MCG/SPRA Y INHL,NASAL, 30ML SPRAY 1 PUFF IN EACH NOSTRIL TWICE A DAY FOR NASAL SYMPTOMS NASAL ACTIVE 12/31/2024 [id number] 5 RODRÍGUEZ MATHEWS 2023 2 [facility] CALCIUM CARBONATE TAB,CHEWABL E CHEW ONE TABLET BY MOUTH FOUR TIMES A DAY NEEDED ORAL ACTIVE RODRÍGUEZ MATHEWS 2022 [facility] CLOPIDOGREL BISULFATE 75MG TAB TAKE ONE TABLET BY MOUTH EVERY DAY TO PREVENT BLOOD CLOTS LENGTH OF TREATMEN T: MARIANA TE, CO-MANAG ED CARE PRESCRIP TION ORAL ACTIVE 06/16/2025 [id number] 5 RODRÍGUEZ MATHEWS 2024 90 [facility] COENZYME Q10 CAP/TAB TAKE ONE TABLET BY MOUTH EVERY DAY ORAL ACTIVE CASANDRA DALTON 2012 [facility] CYCLOSPORIN E 0.05% (PF) EMULSION,OP H,0.4ML INSTILL 1 DROP BOTH EYES TWICE A DAY OPHTHA LMIC ACTIVE 08/10/2024 [id number] FB-PURFEE RST,MATHEW OD 2023 60 [place] [facility] DEXTROMETHO RPHAN HBR 10MG/GUAIFE NESIN 100MG/5ML (AF & SF) LIQUID TAKE 1 TEASPOON FUL BY MOUTH EVERY 4 HOURS NEEDED FOR COUGH AND CONGESTI ON ORAL ACTIVE 07/01/2025 [id number] 5 RODRÍGUEZ MATHEWS 2024 120 [facility] DEXTROMETHO RPHAN HBR 10MG/GUAIFE NESIN 100MG/5ML (AF & SF) LIQUID TAKE 1 TEASPOON FUL BY MOUTH EVERY 4 HOURS NEEDED FOR COUGH AND CONGESTI ON ORAL DISCONT INUED 03/09/2024 [id number] 4 RODRÍGUEZ MATHEWS 2022 120 [facility] DIALYVITE TAB TAKE 1 TABLET BY MOUTH EVERY DAY ORAL DISCONT INUED 09/10/2023 [id number] 4 RODRÍGUEZ MATHEWS 2022 100 [facility] DIALYVITE TAB TAKE 1 TABLET BY MOUTH EVERY DAY ORAL 07/02/2024 [id number] 5 RODRÍGUEZ MATHEWS 2023 100 [facility] FLUTICASONE 250MCG/SALM ETEROL 50MCG INHL,ORAL,D ISKUS,60 INHALE 1 PUFF BY INHALATI ON TWICE A DAY TO PREVENT TROUBLE BREATHIN G -RINSE MOUTH AFTER USING RESPIR ATORY (INHAL ATION) ACTIVE 12/28/2024 [id number] 4 RODRÍGUEZ MATHEWS 2023 3 [facility] FLUTICASONE 250MCG/SALM ETEROL 50MCG INHL,ORAL,D ISKUS,60 INHALE 1 PUFF BY INHALATI ON TWICE A DAY TO PREVENT TROUBLE BREATHIN G -RINSE MOUTH AFTER USING RESPIR ATORY (INHAL ATION) DISCONT INUED 09/23/2023 [id number] 4 RODRÍGUEZ MATHEWS 2022 3 [facility] INSULIN,ASP ART,HUMAN (EQV-NOVOLO G) 100 UNIT/ML,FLE XPEN,3ML INJECT 5 UNITS UNDER THE SKIN BEFORE MEALS FOR DIABETES SUBCUT ANEOUS ACTIVE 10/26/2024 [id number] 4 RODRÍGUEZ MATHEWS 2023 5 [place] [facility] INSULIN,ASP ART,HUMAN (EQV-NOVOLO G) 100 UNIT/ML,FLE XPEN,3ML INJECT 5 UNITS UNDER THE SKIN TWICE A DAY TO DECREASE BLOOD SUGAR-- INJECT IMMEDIAT LINDA BEFORE MEAL (PEN FILL APPROVED ) REPLACES REGULAR INSULIN PEN SUBCUT ANEOUS 05/13/2023 [id number] 3 RODRÍGUEZ MATHEWS 2021 5 [facility] INSULIN,GLA RGINE,HUMAN 100 UNIT/ML INJ,SOLOSTA R,3ML INJECT 18 UNITS UNDER THE SKIN EVERY DAY FOR DIABETES DISCAR D PEN 28 DAYS AFTER INITIAL USE SUBCUT ANEOUS DISCONT INUED (EDIT) 06/06/2024 [id number] 4 RODRÍGUEZ MATHEWS 2023 5 [facility] INSULIN,GLA RGINE-YFGN 100UNIT/ML INJ PEN,3ML INJECT 18 UNITS UNDER THE SKIN EVERY DAY FOR DIABETES DISCAR D PEN 28 DAYS AFTER INITIAL USE SUBCUT ANEOUS 06/09/2024 [id number] 4 RODRÍGUEZ MATHEWS 2023 5 [facility] LEVOTHYROXI NE NA 200MCG TAB (SYNTHROID) TAKE ONE TABLET BY MOUTH EVERY DAY FOR THYROID ORAL ACTIVE 12/28/2024 [id number] 5 RODRÍGUEZ MATHEWS 2023 90 [place] [facility] LEVOTHYROXI NE NA 200MCG TAB (SYNTHROID) TAKE ONE TABLET BY MOUTH EVERY DAY FOR THYROID ORAL DISCONT INUED 01/13/2024 [id number] 4 RODRÍGUEZ MATHEWS 2022 90 [place] [facility] LORATADINE 10MG TAB TAKE ONE TABLET BY MOUTH EVERY DAY NEEDED ORAL ACTIVE RODRÍGUEZ MATHEWS 2022 [place] [facility] MARINE LIPID (FISH OIL) CAP,ORAL TAKE 1200MG BY MOUTH EVERY DAY ORAL ACTIVE CASANDRA DALTON 2010 [facility] MIDODRINE HCL 10MG TAB TAKE ONE TABLET BY MOUTH DIRECTED - TAKE 1 TABLET BEFORE DIALYSIS AND 1 TABLET AFTER DIALYSIS , NEEDED FOR HYPOTENS ION OTHER DAYS ORAL ACTIVE 06/21/2025 [id number] 5 Stefany TRAN 2024 90 [facility] MONTELUKAST NA 10MG TAB TAKE ONE TABLET BY MOUTH EVERY DAY ORAL ACTIVE 06/21/2025 [id number] 5 CASANDRA DALTON 2024 90 [place] [facility] MONTELUKAST NA 10MG TAB TAKE ONE TABLET BY MOUTH EVERY DAY ORAL DISCONT INUED 05/08/2024 [id number] 4 CASANDRA DALTON 2022 90 [facility] NITROGLYCER IN 0.4MG TAB,SUBLING UAL DISSOLVE ONE TABLET UNDER THE TONGUE PRN SUBLIN GUAL ACTIVE CASANDRA DALTON 2010 [facility] PANTOPRAZOL E NA 40MG TAB,EC TAKE ONE TABLET BY MOUTH EVERY DAY ONE-HALF HOUR BEFORE EATING. ORAL ACTIVE 06/21/2025 [id number] 5 CASANDRA DALTON 2024 90 [facility] PANTOPRAZOL E NA 40MG TAB,EC TAKE ONE TABLET BY MOUTH EVERY DAY ONE-HALF HOUR BEFORE EATING. ORAL DISCONT INUED 07/02/2024 [id number] 4 CASANDRA DALTON 2023 90 [facility] PRAVASTATIN NA 40MG TAB TAKE ONE TABLET BY MOUTH AT BEDTIME FOR CHOLESTE ROL ORAL DISCONT INUED 06/05/2024 [id number] 3 CASANDRA DALTON 2022 90 [facility] PRAVASTATIN NA 40MG TAB TAKE ONE TABLET BY MOUTH AT BEDTIME FOR CHOLESTE ROL ORAL 06/06/2024 [id number] 4 RODRÍGUEZ MATHEWS 2023 90 [facility] SULFAMETHOX AZOLE 800MG/TRIME THOPRIM 160MG TAB TAKE 1 TABLET BY MOUTH TWICE A DAY ORAL 01/30/2024 [id number] 4 RODRÍGUEZ MATHEWS 2023 20 [facility] TIOTROPIUM 2.5MCG/ACTU AT INHL,ORAL,6 0D,4GM INHALE TWO PUFFS BY INHALATI ON EVERY DAY FOR ASTHMA RESPIR ATORY (INHAL ATION) DISCONT INUED 04/01/2025 [id number] 4 [place] NA 2023 1 [facility] TIOTROPIUM 2.5MCG/ACTU AT INHL,ORAL,6 0D,4GM INHALE TWO PUFFS BY INHALATI ON EVERY DAY FOR ASTHMA RESPIR ATORY (INHAL ATION) DISCONT INUED 08/26/2024 [id number] 4 [place],IA NA 2023 1 [facility] TIOTROPIUM 2.5MCG/ACTU AT INHL,ORAL,6 0D,4GM INHALE TWO PUFFS BY INHALATI ON EVERY DAY FOR ASTHMA RESPIR ATORY (INHAL ATION) DISCONT INUED 10/29/2023 [id number] 4 [place], [place] NA 2022 1 [facility] TIOTROPIUM 2.5MCG/ACTU AT INHL,ORAL,6 0D,4GM INHALE TWO PUFFS BY INHALATI ON EVERY DAY FOR ASTHMA RESPIR ATORY (INHAL ATION) 06/29/2024 [id number] 5 RODRÍGUEZ MATHEWS 2024 3 [facility] VANICREAM APPLY THIN LAYER TOPICALL Y EVERY DAY FOR DRY SKIN TOPICA L ACTIVE 12/28/2024 [id number] 5 RODRÍGUEZ MATHEWS 2023 1362 [facility] VANICREAM APPLY THIN LAYER TOPICALL Y EVERY DAY FOR DRY SKIN TOPICA L DISCONT INUED 12/19/2023 [id number] 4 RODRÍGUEZ MATHEWS 2022 1362 [facility] VITAMIN E 400UNT CAP TAKE 1 CAPSULE BY MOUTH EVERY DAY ORAL ACTIVE ME VELMA DAI 2013 [facility] ZINC SULFATE TAB TAKE 50MG BY MOUTH EVERY DAY ORAL ACTIVE [facility] 2014 [facility] Allergies, Adverse Reactions, Alerts Combined list of allergies from Department of [facility] and Veterans 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 It does not include entries that were removed or entered in error. Substance Category Reaction Severity Reaction type Status Date Reported Comments Source ATORVASTATIN Propensity to adverse reactions to drug (finding) Pain in lower limb active 9 [facility] DOXYCYCLINE Propensity to adverse reactions to drug (finding) PRURITIS, Eruption active 4 [facility] HYDROCODONE Propensity to adverse reactions to drug (finding) Disorientat ed, Drowsy, Hallucinati ons active 3 [facility] LIPITOR Propensity to adverse reactions to drug (finding) Cramp active [address] [facility] LISINOPRIL Propensity to adverse reactions to drug (finding) Abdominal discomfort active 7 [facility] METOCLOPRAMI DE Propensity to adverse reactions to drug (finding) Gynecomasti a active [address] [facility] OMEPRAZOLE Propensity to adverse reactions to drug (finding) Diarrhea active [address] [facility] SIMVASTATIN Propensity to adverse reactions to drug (finding) MUSLCE CRAMPS active 4 [facility] Immunizations Combined list of available immunizations from the Department of [facility] and 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 Status Comments Source INFLUENZA, RECOMBINANT, QUADRIVALENT, PF 2022 185 complet ed [facility] TDAP 2022 [facility] RIGHT DELTO ID [id number] 115 complet ed [facility] INFLUENZA, UNSPECIFIED FORMULATION 2021 88 complet ed [facility] COVID-19 (PFIZER), MRNA, LNP-S, PF, 30 MCG/0.3 ML DOSE, ALY-SUCROSE (AGES 12+ YEARS) 2021 217 complet ed [facility] COVID-19 (PFIZER), MRNA, LNP-S, PF, 30 MCG/0.3 ML DOSE 2020 208 complet ed [facility] INFLUENZA, UNSPECIFIED FORMULATION 2020 88 complet ed [facility] ZOSTER RECOMBINANT 2 2020 187 complet ed [facility] COVID-19 (PFIZER), MRNA, LNP-S, PF, 30 MCG/0.3 ML DOSE 2020 208 complet ed [facility] COVID-19 (PFIZER), MRNA, LNP-S, PF, 30 MCG/0.3 ML DOSE 2020 208 complet ed [facility] ZOSTER RECOMBINANT 1 2019 187 complet ed [facility] INFLUENZA, SEASONAL, INJECTABLE, PRESERVATIVE FREE 2019 140 complet ed [facility] INFLUENZA, UNSPECIFIED FORMULATION 2018 88 complet ed [facility] INFLUENZA, SEASONAL, INJECTABLE, PRESERVATIVE FREE 2017 140 complet ed [facility] INFLUENZA, HIGH DOSE SEASONAL 2016 135 complet ed [facility] INFLUENZA, HIGH-DOSE, TRIVALENT, PF 2015 135 complet ed [facility] INFLUENZA, HIGH DOSE SEASONAL 2014 135 complet ed [facility] PNEUMOCOCCAL CONJUGATE PCV 13 2014 133 complet ed [facility] [id number] 08/22 [facility] INFLUENZA, UNSPECIFIED FORMULATION 2013 88 complet ed [facility] INFLUENZA, UNSPECIFIED FORMULATION 2013 88 complet ed [facility] ZOSTER LIVE 2013 121 complet ed [facility] INFLUENZA, UNSPECIFIED FORMULATION 2012 88 complet ed [facility] PNEUMOCOCCAL, UNSPECIFIED FORMULATION 2012 109 complet ed [employer], [id number], [facility] TDAP [address] [facility] TDAP 2012 115 complet ed [facility] ZOSTER LIVE 2012 121 complet ed [employer] Lot#[id number] 14 [facility] TDAP 2012 115 complet ed [facility] INFLUENZA, UNSPECIFIED FORMULATION 2011 88 complet ed [facility] INFLUENZA, UNSPECIFIED FORMULATION 2010 88 complet ed [facility] INFLUENZA, UNSPECIFIED FORMULATION 2009 88 complet ed [facility] INFLUENZA, UNSPECIFIED FORMULATION 2008 88 complet ed [facility] TD(ADULT) UNSPECIFIED FORMULATION 2007 139 complet ed [facility] INFLUENZA, SPLIT VIRUS, TRIVALENT, PRESERVATIVE 2007 141 complet ed [facility] TD (ADULT), 5 LF TETANUS TOXOID, PRESERVATIVE FREE, ADSORBED 2007 113 complet ed [facility] INFLUENZA (HISTORICAL) 2006 88 complet ed [facility] INFLUENZA (HISTORICAL) 2005 88 complet ed [facility] INFLUENZA, UNSPECIFIED FORMULATION 2004 88 complet ed [facility] INFLUENZA, UNSPECIFIED FORMULATION 2003 88 complet ed [facility] PNEUMOCOCCAL, UNSPECIFIED FORMULATION 2003 109 complet ed [facility] TD(ADULT) UNSPECIFIED FORMULATION 2003 139 complet ed due next year [facility] INFLUENZA, SPLIT VIRUS, TRIVALENT, PRESERVATIVE 2002 141 complet ed [facility] INFLUENZA (HISTORICAL) 2002 88 complet ed pt states he had a Influenza vaccinati on this yr [facility] TD(ADULT) UNSPECIFIED FORMULATION 1994 139 complet ed [facility] Vital Signs Combined list of inpatient and outpatient Vital Signs from Department of Defense and Veterans Affairs, ranging from 12 months to all on record, depending upon the facility. Vital Sign Value Date Comments Source SYSTOLIC BLOOD PRESSURE 103 12/31/2023 13:26:57 [facility] DIASTOLIC BLOOD PRESSURE 55 12/31/2023 13:26:57 [facility] PULSE OXIMETRY 95 12/31/2023 13:26:57 [facility] WEIGHT 200.2 12/31/2023 13:26:57 [facility] BMI 27kg/m2 12/31/2023 13:26:57 [facility] PAIN 6 12/31/2023 13:26:57 [facility] TEMPERATURE 98.4 12/31/2023 13:26:57 [facility] PULSE 73 12/31/2023 13:26:57 [facility] RESPIRATION 18 12/31/2023 13:26:57 [facility] Encounters Combined list of: 1) Encounters from Department of [facility] facilities going back up to thelast 18 months. 2) Encounters from the Department of [facility] facilities going back up to 280 months. Location Location Details Encounter Type Encounter Number Reason For Visit Attending Provider ADM Date DC Date Status Disposition Source [place] [facility] Outpatient Encounter [id number] [facility] [place] [facility] Outpatient Encounter [id number] 02/05 [facility] [place] [facility] Outpatient Encounter [id number] 02/11 [facility] HC PRO PHONE CALL 21-30 MIN [id number] Diagnos is: ICD-10- CM Z65.8 Oth problem s related to psychos ocial circums tances< br/> VESNA GRAY 02/11 [facility] [place] [facility] Outpatient Encounter [id number] DEBRA PINTO 02/18 [facility] SELF CARE MNGMENT TRAINING [id number] Diagnos is: ICD-10- CM J44.9 Chronic obstruc tive pulmona ry disease , unspeci fied
MAGGIE EVANS A 02/19 [facility] [place] [facility] Outpatient Encounter [id number] 03/03 [facility] [place] [facility] Outpatient Encounter [id number] Diagnos is: ICD-10- CM R26.9 Unspeci fied abnorma lities of gait and mobilit y
NANCY HOWARD 03/04 [facility] [place] [facility] Outpatient Encounter [id number] 03/06 [place] [facility] [place] [facility] Outpatient Encounter [id number] 03/23 [place] [facility] [place] [facility] Outpatient Encounter [id number] 03/26 [place] [facility] [place] [facility] TARGETED CASE MANAGEMENT [id number] Chani PERAZA L 05/04 [place] [facility] HC PRO PHONE CALL 5-10 MIN [id number] Diagnos is: ICD-10- CM N18.6 End stage renal disease
FADUMO HERNANDEZ 05/05 [facility] TARGETED CASE MANAGEMENT [id number] Chani PERAZA L 05/05 [facility] TARGETED CASE MANAGEMENT [id number] Chani PERAZA L 05/13 [facility] CASE MANAGEMENT [id number] JENNIFER THAPA CCA 05/13 [facility] Outpatient Encounter [id number] 05/13 [facility] Outpatient Encounter [id number] GUADALUPE ACOSTA 05/14 [facility] CASE MANAGEMENT [id number] Chani PERAZA L 05/19 [facility] Out[facility] Encounter [id number] 05/19 [facility] Outpatient Encounter [id number] Chani PERAZA L 05/27 [place] [facility] Outpatient Encounter [id number] 05/28 [facility] Outpatient Encounter [id number] 05/28 [facility] Outpatient Encounter [id number] ANSELMO ARMSTRONG NANCY A 06/02 [facility] Outpatient Encounter [id number] 06/02 [facility] Outpatient Encounter [id number] DARRELL LOO 06/17 [facility] Outpatient Encounter [id number] 06/18 [facility] Outpatient Encounter [id number] Jared RUVALCABA 06/25 [facility] HEARING AID CHECK BOTH EARS [id number] Diagnos is: ICD-10- CM Z46.1 Encount er for fitting and adjustm ent of hearing aid<br/ > DANELLE MAYFIELD 07/23 [facility] PRO PHONE CALL 5-10 MIN [id number] Diagnos is: ICD-10- CM H04.129 Dry eye syndrom e of unspeci fied lacrima l gland<b r/> FADUMO HERNANDEZ K 08/09 [facility] OFF/OP EST OCTOBER X REQ PHY/QHP [id number] Diagnos is: ICD-10- CM Z01.118 Encntr for exam of ears and hearing w oth abnorma l finding s
DAYANNA CRAWFORD 10/14 [facility] Outpatient Encounter [id number] 10/23 [facility] CONFORMITY EVALUATION [id number] Diagnos is: ICD-10- CM H90.3 Sensori neural hearing loss, bilater al
DAYANNA CRAWFORD 11/16 [facility] [place] [facility] Outpatient Encounter [id number] 12/30 [facility] OFFICE O/P EST HI 40 MIN [id number] Diagnos is: ICD-10- CM M79.646 Pain in unspeci fied finger( s)
BISISaskia RIBEIRO H 12/30 [facility] [place] [facility] Outpatient Encounter [id number] DEBRA PINTO 01/20 [facility] [place] [facility] Outpatient Encounter [id number] 02/10 [facility] [place] [facility] Outpatient Encounter [id number] DEBRA PINTO 02/14 [place] [facility] [place] [facility] Outpatient Encounter [id number] KALYANI COPELAND H 02/23 [facility] SELF CARE MNGMENT TRAINING [id number] Diagnos is: ICD-10- CM R26.89 Other abnorma lities of gait and mobilit y
RASHEL HAYES 04/07 [facility] [place] [facility] SELF CARE MNGMENT TRAINING [id number] Diagnos is: ICD-10- CM R26.89 Other abnorma lities of gait and mobilit y
RASHEL [facility]AYES 04/28 [facility] [place] [facility] SELF CARE MNGMENT TRAINING [id number] Diagnos is: ICD-10- CM R26.89 Other abnorma lities of gait and mobilit y
RASHEL HAYES 05/17 [place] [facility] [place] [facility] Outpatient Encounter [id number] 06/06 [place] [facility] [place] [facility] Outpatient Encounter [id number] 06/14 [place] [facility] [place] [facility] Outpatient Encounter [id number] 06/20 [place] [facility] [place] [facility] Outpatient Encounter [id number] 06/20 [place] [facility] [facility] [place] [facility] NQHP OL DIG ASSMT&MGMT 5-10 [id number] Diagnos is: ICD-10- CM I25.10 Athscl heart disease of [place] coronar y artery w/o ang pctrs<b r/> ANGIE BOOTHE 06/20 [facility] Social History Combined list of available smoking, tobacco, and 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 Social History Type Response Date Comment Sourc e Tobacco smoking status NHIS VA-TOBACCO FORMER USER 12/31/2023 [facility] History of tobacco use DE-TOBACCO QUIT 1 5 YRS OR MORE 12/31/2023 [facility] History of tobacco use DE-TOBACCO FORMER USER 12/18/2022 [facility] History of tobacco use DE-TOBACCO FORMER USER 11/05/2021 [facility] History of tobacco use DE-TOBACCO QUIT 1 5 YRS OR MORE 07/28/2019 [facility] History of tobacco use VA-TOBACCO FORMER USER 12/10/2018 [facility] History of tobacco use DE-TOBACCO QUIT 1 5 YRS OR MORE 02/25/2018 [facility] History of tobacco use FORMER TOBACCO US ER 7Y OR GREATER 04/10/2015 [facility] History of tobacco use FORMER TOBACCO US ER 7Y OR GREATER 04/27/2014 [facility] History of tobacco use FORMER TOBACCO US ER 7Y OR GREATER 06/18/2006 [facility] Plan of Care List of future care activities from Department of Veterans 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 Additional future care activities may be listed in the Assessment and Plan section. Date/Time Care Activity Care Activity Detail Facili ty 07/26/2024 AMBULATORY - REHAB MEDICINE AMBULATORY - REHAB MEDICINE [facility] Advance Directives List of completed, amended, or rescinded Advance Directives on record at Department of Veterans 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 An actual copy of the Directive is not included. Date Advance Directive Provider Source 05/23/2003 ADVANCE DIRECTIVE [facility] AND[facility]W [facility]
== END 2024-07-12 02:14 | disposition home or self-care (01) ==
PROVIDERS: Emergency Provider Family Medicine; PCP Family Medicine
DX: R45.1 Restlessness and agitation (principal); R41.81 Age-related cognitive decline; K59.00 Constipation, unspecified
CPT/HCPCS: 74018; 99284

== ENCOUNTER 2024-12-09 14:58 | Emergency (ER) | payer MEDICARE, OTHER, SELFPAY ==
--- OUTSIDE RECORDS SUMMARY | 2023-12-31 08:30 | XMS_ITS | Encounter Summary ---
Author Name [facility] Organization [facility] Address [address] [place] [address] Care Team Providers Care Ux Researcher Name Role Phone URVASHI MATHEWS Primary Care Provider Unavailabl e Insurance Providers: All historical and current Section Date Range: From patient's date of to the date document was created. This section includes the names of all active insurance providers for the patient. Insurance Provider Type of Coverage Plan Name Start of Policy Coverage End of Policy Coverage Group Number Member ID Insurance Provider's Telephone Number Policy Blanchard's Name Patient's Relationship to Policy Blanchard [facility] (WNR) MEDICARE ADVANTAGE [facility] (WNR) Jun 08, 2023 [id number] SHERYL SERRANO PATIENT MEDICARE (WNR) MEDICARE (M) RR PART A Feb 06, 2003 RR PART A [id number] JANETTEVannesa SHERYL PATIENT MEDICARE (WNR) MEDICARE (M) RR PART B Feb 06, 2003 RR PART B [id number] ZACH SHERYL PATIENT MEDICARE PART D (WNR) MEDICARE (M) PART D Jun 08, 2022 PART D [id number] SHERYL SERRANO PATIENT [employer] MEDICARE SECONDARY (NO B EXC) UPREH S Jun 08, 2009 [id number] ZACH SHERYL PATIENT Selected Encounter This section includes the information on record at [place] for the Encounter. Date/Time Encounter Type Encounter Description Reason Provider Source Dec 31, 2023 01:30 PM OFFICE O/P EST [place] 40 MIN PRIMARY CARE/MEDICINE ICD-10-CM M79.646 Pain in unspecified finger(s) URVASHI MATHEWS Marika Encounter Template Text not used by [place] Assessments - Encounter Diagnoses This section includes the primary and secondary diagnoses documented for the Encounter. 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 BISISILVERIO LY [facility] Dec 31, 2023 08:38 PM SECONDARY Chronic obstructive pulmonary disease, unspecified BISISILVERIO LY [facility] Dec 31, 2023 08:38 PM SECONDARY Chronic rhinitis BISISILVERIO LY [facility] Dec 31, 2023 08:38 PM SECONDARY End stage renal disease BISISILVERIO LY [facility] Dec 31, 2023 08:38 PM SECONDARY Essential (primary) hypertension BISISILVERIO LY [facility] Dec 31, 2023 08:38 PM SECONDARY Full incontinence of feces BISISILVERIO LY [facility] Dec 31, 2023 08:38 PM SECONDARY Gastro-esophageal reflux disease without esophagitis BISISILVERIO LY H [facility] Dec 31, 2023 08:38 PM SECONDARY Hyperlipidemia, unspecified BISISILVERIO LY [facility] Dec 31, 2023 08:38 PM SECONDARY Hypothyroidism, unspecified BISISILVERIO LY H [facility] Dec 31, 2023 08:38 PM SECONDARY Secondary hyperparathyroidism of renal origin BISISILVERIO LY [facility] Dec 31, 2023 08:38 PM SECONDARY Type 2 diabetes mellitus w diabetic chronic kidney disease SILVERIO MATHEWS LY [facility] Dec 31, 2023 08:38 PM SECONDARY Type 2 diabetes mellitus with diabetic neuropathy, unsp BISISILVERIO LY [facility] Plan of Treatment: Future Appointments (+ 6 months) and Future Tests (+/- 45 days) The Plan of Treatment section includes future care activities for the patient from all [place] treatmentfacilities. This section includes future appointments and future orders which are active, pending or scheduled. Future Appointments This section includes appointments that were scheduled to occur 6 months from the date of the Encounter, up to a maximum of 20 appointments. The data comes from all [place] treatment facilities. Appointment Date/Time Appointment Type Appointme nt Facility Name Feb 14, 2024 07:00 AM AMBULATORY - NONE CHERYL MILLER [facility] Apr 07, 2024 01:00 PM AMBULATORY - REHAB MEDICIN E [facility] Apr 28, 2024 02:30 PM AMBULATORY - REHAB MEDICIN E [facility] May 17, 2024 02:30 PM AMBULATORY - REHAB MEDICIN [facility] Vital Signs: All taken on the encounter date This section contains inpatient and outpatient Vital Signs collected on the date of the Encounter. Date/Time Temperature Pulse Blood Pressure Respiratory Rate SP02 Pain Height Weight Body Mass Index Source Dec 31, 2023 01:26 PM 98.4 73 103/55 18 95 6 200.2 [facility] Social History: Smoking Status (Most current) and Tobacco Use (All prior to encounter date) This section includes the most current, and the historical, smoking and tobacco- related health factors from the [place] facility where the Encounter took place. Current Smoking Status This section includes the most current smoking, or tobacco-related health factor, from the [place] facility where the Encounter took place. Date/Time Current Smoking Status Comment Billie ity Dec 31, 2023 01:30 PM VA-TOBACCO QUIT 15 YRS OR MORE [facility] Tobacco Use History This section includes a history of the smoking, or tobacco-related health factors, that were collected on or before the date of the Encounter. The data comes from the [place] facility where the Encounter took place. Date/Time Smoking Status/Tobacco Use Comment F acility Dec 31, 2023 01:30 PM VA-TOBACCO QUIT 15 YRS OR MORE [facility] Dec 18, 2022 01:00 PM VA-TOBACCO FORMER USER [facility] Dec 18, 2022 01:00 PM VA-TOBACCO QUIT 15 YRS OR MORE [facility] November 05, 2021 10:00 AM VA-TOBACCO FORMER USER [facility] November 05, 2021 10:00 AM VA-TOBACCO QUIT 15 YRS OR MORE [facility] Dec 10, 2018 12:57 PM VA-TOBACCO FORMER USER [facility] Dec 10, 2018 12:57 PM VA-TOBACCO QUIT 15 YRS OR MORE [facility] Feb 25, 2018 12:23 PM VA-TOBACCO FORMER USER [facility] Feb 25, 2018 12:23 PM VA-TOBACCO QUIT 15 YRS OR MORE [facility] Apr 10, 2015 02:55 PM FORMER TOBACCO USER 7Y OR ERICKAE R [facility] Apr 27, 2014 10:17 AM FORMER TOBACCO USER 7Y OR GREATE R [facility] Jun 18, 2006 07:23 AM FORMER TOBACCO USER 7Y OR ERICKAE R [facility] Advance Directives: All historical and [...] May 23, 2003 ADVANCE DIRECTIVE [facility] Encounter Notes: All associated encounter notes This section contains the clinical notes associated to the Encounter. Date/Time Encounter Note(s) Provider Source Dec 31, 2023 01:27 PM INTERNAL MEDICINE OUTPATIENT NOTE: LOCAL TITLE: MEDICINE CLINIC NURSING NOTE STANDARD TITLE: INTERNAL MEDICINE OUTPATIENT NOTE DATE OF NOTE: DEC 31, 2023@13:27 ENTRY DATE: DEC 31, 2023@13:27:50 AUTHOR: GREG PORRAS EXP COSIGNER: URGENCY: STATUS: COMPLETED TYPE OF VISIT: Appointment Check In Type of appointment: In-person appointment REASON FOR VISIT: annual, rt pointer finger ALLERGIES: SIMVASTATIN (October 13, 2003) DOXYCYCLINE (Apr 02, 2004) LISINOPRIL (Sep 17, 2006) ATORVASTATIN (Feb 22, 2009) HYDROCODONE (Dec 18, 2022) VITAL SIGNS: Blood Pressure: 103/55 (12/31/2023 13:26) Pulse: 73 (12/31/2023 13:26) Respiration: 18 (12/31/2023 13:26) Temperature: 98.4 F [36.9 C] (12/31/2023 13:26) Weight: 200.2 lb [90.81 kg] (12/31/2023 13:26) Height: 72 in [182.9 cm] (12/18/2022 13:09) BMI: 27.2 O2 Sat: 95% (12/31/2023 13:26) Pain: 6 (12/31/2023 13:26) PAIN SCREEN: Patient is not having significant pain that they wish to discuss with their provider today. MEDICATION Over the Counter/Herbal Medications: The patient states that they take some outside medications and/or herbals. Suicide Screen: C-SSRS Screening [place]-Suicide Severity Rating Scale (C-SSRS Screener) 1. Over the past month, have you [...] required due to responses to other questions. Homelessness/Food Insecurity Screen: In the past 2 months, have you been living in stable housing that you own, rent, or stay in as part of a household? Yes - Living in stable housing. Are you worried or concerned that in the next 2 months you may NOT have stable housing that you own, rent, or stay in as part of a household? No - Not worried about housing near future The reports the following: Within the past 12 months, you worried whether your food would run out before you got money to buy more. Never true Within the past 12 months, the food you bought just didn't last and you didn't have money to get more. Never true Food Assistance Programs [facility] Food Assistance [facility] Depression Screening: Perform PHQ-2 A PHQ-2 screen was performed. The score was 0 which is a negative screen for depression. Over the past two weeks, how often have you been bothered by the following problems? 1. Little interest or pleasure in doing things Not at all 2. Feeling down, depressed, or hopeless Not at all Nursing Annual Screening: Fall History Screen During the past 12 months, have you had any falls? Patient does not report any falls in the past 12 months. MEDICATIONS: Patient does not have an active prescription for one of the following medications: Antihypertensives, Antidepressants, Antipsychotics, Diuretics, or Opioid Analgesics (Contolled Substance medications used for pain). Script Talk Screen Are you able to read your prescription bottles with your glasses, magnifiers or other aids? Yes or patient not taking any prescriptions. Skin Screen Patient reports any current pressure ulcers, a history of pressure ulcers, or a wound from a medical collections specialist or Patient is bed-confined or a wheelchair-user or Patient requires assistance to transfer/change position No, Skin Screen is Negative Home Abuse/Violence Screen Is your home free of abuse and violence? Yes Outpatient Nutrition Screen Body Mass Index (BMI)= 27.2 [place]: Collection DT Specimen Test Name Result Units Ref Range 03/15/2020 11:02 BLOOD HEMOGLOBIN A1C 6.0 % 4.0 - 6.0 [place] Hgb A1C: No data available [place] Hgb A1C: No data available Point of Care Hgb A1C: POC HGB A1C____ Is patient's BMI less than 18.5? No Does patient have swallowing, coughing, or chewing problems affecting oral intake? No Has patient experienced unplanned weight loss or gain greater than 10 pounds over the last 2 months? No Is patient's Hgb A1C (Glycosylated Hemoglobin) greater than 9.5? No Is patient receiving Total Parenteral Nutrition (TPN) or Tube Feedings? No Patient Health Education Screen BARRIERS/SPECIAL NEEDS: No barriers identified PREFERRED STYLE OF LEARNING: Watching something Client Assistive Service (EDEL) Screen Does the patient require assistance with outpatient visit? No Tobacco Use Screening: The patient is a former tobacco user. The patient quit fifteen or more years ago. Alcohol Use Screen (AUDIT-C): Alcohol Screen: SCREEN FOR ALCOHOL (AUDIT-C) An alcohol screening test (AUDIT-C) was negative (score=1). 1. How often did you have a drink containing alcohol in the past year? Consider a drink to be a 12 ounce can or bottle of regular beer, 8 ounces of malt liquor, a 5 ounce glass of table wine, or a 1.5 ounce shot of liquor (like scotch, gin, or vodka). Monthly or less 2. How many drinks containing alcohol did you have on a typical day when you were drinking in the past year? One or two drinks 3. How often did you have six or more drinks on one occasion in the past year? Never /es/ GREG Mccall. MYLENE PORRAS LICENSED PRACTICAL NURSE Signed: 12/31/2023 13:34 GREG PORRAS [facility] Dec 31, 2023 09:32 AM INTERNAL MEDICINE NOTE: LOCAL TITLE: MEDICINE CLINIC NOTE STANDARD TITLE: INTERNAL MEDICINE NOTE DATE OF NOTE: DEC 31, 2023@09:32 ENTRY DATE: DEC 28, 2023@15:41:23 AUTHOR: URVASHI MATHEWS EXP COSIGNER: URGENCY: STATUS: COMPLETED SUBJECT: CLINIC VISIT CLINIC VISIT GENERAL INTERNAL MEDICINE CLINIC PROGRESS NOTE SHERYL SERRANO is a 83 year old MALE with the following CHIEF COMPLAINT: chronic disease management THIS AN ESTABLISHED PATIENT IN THE PRIMARY CARE CLINIC HPI: Sheryl has a medical history notable for T2DM w/neuropathy, nephropathy, retinopahty, ESRD on HD, CAD s/p CABG, HTN, HLD, Psoriasis, CHLOE w/cpap, Allergic rhinitis, COPD, GERD, Hypothyroidism, Chronic cough (multifactorial), Fecal incontinence, Co-managed care Co-managed care: [facility] [phone] Bus Repair Supervisor: Dr James Pérez [phone] [place], [place] Hemodialysis [place], [place] at [facility] Urology: [facility] at [facility] , Dr. Prater Gets yearly at [facility] in [facility] [place] Clinic: Pacemaker checks [facility]: TAMIKO Jarquin, Dr. Boubacar Jesus Other: - Urology: DR. ISRA RIVAS [facility] [id number] [place] [address] Formerly [facility] in [facility] for patient to get intermediate visits for bladder irrigation Today, we reviewed 's interim chart notes (as summarized below), medications and any need for refills, test results and routine health care maintenance. Additional concerns today: non healing scab near right pointer fingernail, x 3 weeks, has been soaking, using topical iodine and neosporin, no known antecedent trauma/injury Has been purchasing pull ups out of pocket, [facility] Review meds/renewals No other acute concerns. Did not bring most recent lab results with them today CHART REVIEW: 12/18/22: At our visit, we reviewed 's pulmonary history, reflux, chronic cough, other health hx, routine HCM, etc. Plan at that time: I recommended pulmonary consult (followed by non-VA clinicians) Co-managed care, comes here once a year in order to get meds filled through the [place] RTC one year. The following preventive care screening and other chronic disease management records were reviewed: Immunizations: offered any immunizations that are due, see rooming staff note Blood pressure trends (home, clinic): reviewed -Goal SBP 140-150 ages 80+ Diet, Exercise: reviewed, using scooter now which he enjoys See nursing note regarding the following screening: Pain, suicide, depression, alcohol use, toxic exposures, fall risk, skin screen, home abuse/violence, nutriton, health education, tobacco use use. Today's nursing notes were reviewed. Active problems - Computerized Problem List is the source for the followin. Hypothyroidism 2. Dyslipidemia 3. Diabetic neuropathy 4. Essential hypertension 5. Psoriasis Nos 6. 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 Adenoma of large intestine - colonoscopy and polypectomy 12/10, tubular adenoma at [place] 8. Diabetes mellitus 9. Cataract, Senile, Unsp 10. Coronary arteriosclerosis - s/p [id number] at [facility] in 07/15 11. Shared care - apartment leasing consultant and GP - PCP: Dr Dylan Xiong, [facility]: [phone] - Bus Repair Supervisor: Dr James Pérez [phone] - [place], [place] 12. Diabetic renal disease - 10/2018: started hemodialysis @ [facility] in [place] 13. Ganglion of wrist 14. Obstructive Sleep Apnea of Adult (SCT [id number]) - APAP: 10-20, Ramp: 5x10 min, [place] 15. Hyperparathyroidism due to renal insufficiency 16. Chronic cough 17. Oropharyngeal dysphagia - 2013 MICA PATCHER eval in chart 18. Hemorrhoid 19. Exposure to potentially hazardous substance - Asbestos 20. Chronic obstructive lung disease 21. Gastroesophageal reflux disease without esophagitis 22. Chronic rhinitis 23. End-stage renal disease SURGICAL HISTORY: [id number] at [facility] in 07/2006 FAMILY HISTORY: Reviewed. SOCIAL HISTORY: Relationship/living situation: lives w/ Cabral in [facility] health care in [facility] for patient to get intermediate visits for bladder irrigation Substance use hx: [...] FOR BREATHING SHAKE WELL (FOR IMMEDIATE RELIEF). 3) AZELASTINE 137MCG/SPRAY 200D NASAL INHL SPRAY 1 PUFF ACTIVE IN EACH NOSTRIL TWICE A DAY FOR NASAL SYMPTOMS 4) BRIEF,TRANQUILITY HIPOLITO OVERNITE MED#[id number] USE BRIEF ACTIVE DIRECTED FOR INCONTINENCE 5) CYCLOSPORINE 0.05% (PF) OPH EMUL 0.4ML INSTILL 1 DROP ACTIVE BOTH EYES TWICE A DAY 6) DIALYVITE TAB TAKE 1 TABLET BY MOUTH EVERY DAY ACTIVE 7) DM 10/GUAIFENESN 100MG/5ML (AF & SF) LIQ TAKE 1 ACTIVE TEASPOONFUL BY MOUTH EVERY 4 HOURS NEEDED FOR COUGH AND CONGESTION 8) FLUTICAS 250/SALMETEROL 50 INHL DISK 60 INHALE 1 PUFF ACTIVE BY INHALATION TWICE A DAY TO PREVENT TROUBLE BREATHING -RINSE MOUTH AFTER USING 9) INSULIN,ASPART(EQV-NOVLG)100U N/ML FLXPEN INJECT 5 ACTIVE UNITS UNDER THE SKIN BEFORE MEALS FOR DIABETES 10) INSULIN,GLARGINE-YFGN 100UNIT/ML PEN 3ML INJECT 18 ACTIVE UNITS UNDER THE SKIN EVERY DAY FOR DIABETESDISCARD PEN 28 DAYS AFTER INITIAL USE 11) LEVOTHYROXINE NA (SYNTHROID) 200MCG TAB TAKE ONE ACTIVE TABLET BY MOUTH EVERY DAY FOR THYROID 12) MONTELUKAST NA 10MG TAB TAKE ONE TABLET BY MOUTH ACTIVE EVERY DAY 13) NEEDLE,PEN 31G,8MM USE 1 NEEDLE UNDER THE SKIN ACTIVE DIRECTED *DISPOSE OF IN A HARD-PLASTIC CONTAINER WITH A SCREW-ON LID CONTACT GARBAGE HAULER FOR PROPER DISPOSAL 14) PANTOPRAZOLE NA 40MG EC TAB TAKE ONE TABLET BY MOUTH ACTIVE EVERY DAY ONE-HALF HOUR BEFORE EATING. 15) PRAVASTATIN NA 40MG TAB TAKE ONE TABLET BY MOUTH AT ACTIVE BEDTIME FOR CHOLESTEROL 16) SULFAMETHOXAZOLE 800/TRIMETH 160MG TAB TAKE 1 TABLET ACTIVE BY MOUTH TWICE A DAY 17) TIOTROPIUM 2.5MCG/ACTUAT 60D ORAL INHL INHALE TWO ACTIVE PUFFS BY INHALATION EVERY DAY FOR ASTHMA 18) VANICREAM TOP CREAM APPLY THIN LAYER TOPICALLY EVERY ACTIVE (S) DAY FOR DRY SKIN Active Non-VA Medications [...] SULFATE TAB 50MG MOUTH EVERY DAY ACTIVE ALLERGIES: SIMVASTATIN (October 13, 2003) DOXYCYCLINE (Apr 02, 2004) LISINOPRIL (Sep 17, 2006) ATORVASTATIN (Feb 22, 2009) EXAM: VITAL SIGNS: Blood Pressure: 103/55 (12/31/2023 13:26) Pulse: 73 (12/31/2023 13:26) Respiration: 18 (12/31/2023 13:26) Temperature: 98.4 F [36.9 C] (12/31/2023 13:26) Weight: 200.2 lb [90.81 kg] (12/31/2023 13:26) Height: 72 in [182.9 cm] (12/18/2022 13:09) BMI: 27.2 O2 Sat: 95% (12/31/2023 13:26) GEN: Alert, no acute distress EENT: Pupils equal, round, reactive to light. No icterus. Ear canals patent w/o significant cerumen, TM's normal, (hearing aids removed for exam), nasal passages clear w/normal appearing turbinates, oral mucosa moist,pharynx without erythema or exudate Neck: no cervical lymphadenopathy,thyroid smooth, symmetric, no nodules Lungs: Clear to auscultation throughout Cardiac: Regular rate and rhythm, no audible murmur today, no rubs or gallops, JVP normal/not elevated Abdomen: Normal bowel sounds, soft, non tender, no hepatosplenomegaly or masses, no CVA tenderness or masses Extremities: No peripheral edema today, no cyanosis Skin: right pointer finger, near lateral base of nail, there is a scab approx. 4 mm diameter, serous drainage, mild swelling, no fluctuance, skin is hyperemic from base of nail to DIP dorsally. No jaundice, rashes or other suspicious lesions on exposed surfaces Neuro: CN's 2-12 intact, able to get on/off exam table without assistance, as long as he pulls his scooter right up to exam table. Psych: actively engaged in conversation, full range of affect, no psychomotor slowing, no signs of agitation TEST RESULTS: Received labs from 06/23/22 at [facility]: BMP 140/4.4 Bicarb 30 Cr 10.47 [...] Exact date is unknown Results: 29 Location: [facility] Hemoglobin: Date: June 23, 2022 Results: 10 White Blood Cells (WBC): Date: June, ? Exact date is unknown Results: 6.8 Creatinine: Date: June, ? Exact date is unknown Results: 10.4 Patient was informed of available lab, imaging, and other study results associated with today's visit. ASSESSMENT AND PLAN: Paronychia Fecal incontinence Chronic cough (multifactorial, hxCOPD, oropharyngeal dysphagia, GERD, allergic rhinitis, Prior smoking hx, Hx asbestos exposure...) T2DM w/neuropathy, nephropathy, retinopathy, ESRD on HD, CAD s/p CABG, HTN, HLD, Psoriasis, CHLOE w/cpap, Allergic rhinitis, COPD, GERD, Hypothyroidism CO-MANAGED CARE Plan: Sulfa/TMP Rx for pull ups Renewal azelastine RTC one year REMINDERS: Medication Reconciliation: Education Evaluations *Was medication education provided for NEW medications or CHANGES to medications? (including medication name, dose, route, reason for use, and potential side effects). Yes. Verbal education was provided to patient/caregiver and patient/caregiver verbalized understanding. TERATOGENIC MED & CONTRACEPTION REVIEW (Optional)... = [...] were also reviewed/updated for accuracy. Allergies/ADR from [facility] may not display in CPRS. Use JLV MRT5 - Allergies/ADRs FACILITY ALLERGY/ADR -------- [facility] ATORVASTATIN [facility] METOCLOPRAMIDE [facility] OMEPRAZOLE [facility] ATORVASTATIN [facility] DOXYCYCLINE [facility] HYDROCODONE [facility] LISINOPRIL [facility] SIMVASTATIN Active and Recently Outpatient Medications (including Supplies): Issue Date Status Last Fill Active Outpatient Medications Refills Expiration 1) ACCU-CHEK GUIDE (GLUCOSE) TEST STRIP ACTIVE Issu:01-27-23 Qty: 100 for 30 days Sig: USE 1 STRIP Refills: 10 Last:07-03-23 THREE TIMES A DAY TO CHECK BLOOD Expr:01-28-24 SUGAR--USE WITHIN 3 MINUTES OF REMOVING FROM CONTAINER 2) ALBUTEROL 90MCG (CFC-F) 200D ORAL INHL ACTIVE Issu:11-09-23 Qty: 2 for 50 days Sig: INHALE 2 Refills: 5 Last:11-11-23 PUFFS BY INHALATION EVERY 4 HOURS Expr:11-09-24 NEEDED FOR BREATHING SHAKE WELL (FOR IMMEDIATE RELIEF). 3) AZELASTINE 137MCG/SPRAY 200D NASAL INHL ACTIVE Issu:12-31-23 Qty: 2 for 90 days Sig: SPRAY 1 PUFF Refills: 3 Last:12-31-23 IN EACH NOSTRIL TWICE A DAY FOR NASAL Expr:12-31-24 SYMPTOMS 4) BRIEF,TRANQUILITY HIPOLITO OVERNITE MED#[id number] ACTIVE Issu:12-31-23 Qty: 72 for 30 days Sig: USE BRIEF Refills: 11 Last:12-31-23 DIRECTED FOR INCONTINENCE Expr:12-31-24 5) CYCLOSPORINE 0.05% (PF) OPH EMUL 0.4ML ACTIVE Issu:08-10-23 Qty: 60 for 30 days Sig: INSTILL 1 Refills: 2 Last:08-11-23 DROP BOTH EYES TWICE A DAY Expr:08-10-24 6) DIALYVITE TAB Qty: 100 for 90 days ACTIVE Issu:07-02-23 Sig: TAKE 1 TABLET BY MOUTH EVERY DAY Refills: 2 Last:12-13-23 Expr:07-02-24 7) DM 10/GUAIFENESN 100MG/5ML (AF & SF) LIQ ACTIVE Issu:03-09-23 Qty: 120 for 30 days Sig: TAKE 1 Refills: 2 Last:12-13-23 TEASPOONFUL BY MOUTH EVERY 4 HOURS Expr:03-09-24 NEEDED FOR COUGH AND CONGESTION 8) FLUTICAS 250/SALMETEROL 50 INHL DISK 60 ACTIVE Issu:12-28-23 Qty: 3 for 90 days Sig: INHALE 1 PUFF Refills: 3 Last:12-28-23 BY INHALATION TWICE A DAY TO PREVENT Expr:12-28-24 TROUBLE BREATHING -RINSE MOUTH AFTER USING 9) INSULIN,ASPART(EQV-NOVLG)100U N/ML FLXPEN ACTIVE Issu:10-26-23 Qty: 5 for 90 days Sig: INJECT 5 Refills: 2 Last:10-28-23 UNITS UNDER THE SKIN BEFORE MEALS FOR Expr:10-26-24 DIABETES 10) INSULIN,GLARGINE-YFGN 100UNIT/ML PEN 3ML ACTIVE Issu:06-09-23 Qty: 5 for 83 days Sig: INJECT 18 Refills: 2 Last:12-13-23 UNITS UNDER THE SKIN EVERY DAY FOR Expr:06-09-24 DIABETESDISCARD PEN 28 DAYS AFTER INITIAL USE 11) LEVOTHYROXINE NA (SYNTHROID) 200MCG TAB ACTIVE Issu:12-28-23 Qty: 90 for 90 days Sig: TAKE ONE Refills: 3 Last:12-28-23 TABLET BY MOUTH EVERY DAY FOR THYROID Expr:12-28-24 12) MONTELUKAST NA 10MG TAB Qty: 90 for 90 ACTIVE Issu:05-08-23 days Sig: TAKE ONE TABLET BY MOUTH Refills: 1 Last:12-13-23 EVERY DAY Expr:05-08-24 13) NEEDLE,PEN 31G,8MM Qty: 200 for 60 days ACTIVE Issu:08-06-23 Sig: USE 1 NEEDLE UNDER THE SKIN Refills: 5 Last:08-10-23 DIRECTED *DISPOSE OF IN A HARD-PLASTIC Expr:08-06-24 CONTAINER WITH A SCREW-ON LID CONTACT GARBAGE HAULER FOR PROPER DISPOSAL 14) PANTOPRAZOLE NA 40MG EC TAB Qty: 90 for ACTIVE Issu:07-02-23 90 days Sig: TAKE ONE TABLET BY MOUTH Refills: 2 Last:10-09-23 EVERY DAY ONE-HALF HOUR BEFORE EATING. Expr:07-02-24 15) PRAVASTATIN NA 40MG TAB Qty: 90 for 90 ACTIVE Issu:06-06-23 days Sig: TAKE ONE TABLET BY MOUTH AT Refills: 2 Last:12-07-23 BEDTIME FOR CHOLESTEROL Expr:06-06-24 16) SULFAMETHOXAZOLE 800/TRIMETH 160MG TAB ACTIVE Issu:12-31-23 Qty: 20 for 10 days Sig: TAKE 1 Refills: 0 Last:12-31-23 TABLET BY MOUTH TWICE A DAY Expr:01-30-24 17) TIOTROPIUM 2.5MCG/ACTUAT 60D ORAL INHL ACTIVE Issu:08-26-23 Qty: 1 for 30 days Sig: INHALE TWO Refills: 2 Last:11-25-23 PUFFS BY INHALATION EVERY DAY FOR Expr:08-26-24 ASTHMA 18) VANICREAM TOP CREAM Qty: 1362 for 90 ACTIVE (S) Issu:12-28-23 days Sig: APPLY THIN LAYER TOPICALLY Refills: 3 Last:03-02-24 EVERY DAY FOR DRY SKIN Expr:12-28-24 Issue Date Status Last Fill Inactive Outpatient Medications Refills Expiration 1) AZELASTINE 137MCG/SPRAY 200D NASAL INHL DISCONTINUED Issu:01-12-23 Qty: 2 for 90 days Sig: SPRAY 1 PUFF Refills: 3 Last:01-14-23 IN EACH NOSTRIL TWICE A DAY FOR NASAL Expr:01-13-24 SYMPTOMS 2) DIALYVITE TAB Qty: 100 for 90 days DISCONTINUED Issu:09-09-22 Sig: TAKE 1 TABLET BY MOUTH EVERY DAY Refills: 0 Last:06-10-23 Expr:09-10-23 3) FLUTICAS 250/SALMETEROL 50 INHL DISK 60 DISCONTINUED Issu:09-22-22 Qty: 3 for 90 days Sig: INHALE 1 PUFF Refills: 0 Last:09-14-23 BY INHALATION TWICE A DAY TO PREVENT Expr:09-23-23 TROUBLE BREATHING -RINSE MOUTH AFTER USING 4) INSULIN,GLARGINE 100 UNT/ML 3ML SOLOSTAR DISCONTINUED Issu:06-06-23 Qty: 5 for 83 days Sig: INJECT 18 (EDIT) Last:06-09-23 UNITS UNDER THE SKIN EVERY DAY FOR Refills: 4 Expr:06-06-24 DIABETESDISCARD PEN 28 DAYS AFTER INITIAL USE 5) LEVOTHYROXINE NA (SYNTHROID) 200MCG TAB DISCONTINUED Issu:01-12-23 Qty: 90 for 90 days Sig: TAKE ONE Refills: 1 Last:09-14-23 TABLET BY MOUTH EVERY DAY FOR THYROID Expr:01-13-24 6) PRAVASTATIN NA 40MG TAB Qty: 90 for 90 DISCONTINUED Issu:06-05-23 days Sig: TAKE ONE TABLET BY MOUTH AT Refills: 3 Last:06-05-23 BEDTIME FOR CHOLESTEROL Expr:06-05-24 7) TIOTROPIUM 2.5MCG/ACTUAT 60D ORAL INHL DISCONTINUED Issu:10-28-22 Qty: 1 for 90 days Sig: INHALE TWO Refills: 0 Last:06-23-23 PUFFS BY INHALATION EVERY DAY FOR Expr:10-29-23 ASTHMA 8) VANICREAM TOP CREAM Qty: 1362 for 90 DISCONTINUED Issu:12-18-22 days Sig: APPLY THIN LAYER TOPICALLY Refills: 0 Last:12-13-23 EVERY DAY FOR DRY SKIN Expr:12-19-23 Start Date Active Non-VA Medications Refills Expiration [...] SULFATE TAB SiMG MOUTH ACTIVE EVERY DAY 33 Total Medications Diabetic Eye Screening: Patient declined eye exam at this encounter. Followed by non VA clinics PAVE Foot Check: Patient declined limb care exam. Comment: Followed by non VA clinics The patient was advised the VA mandates all patients with diabetes mellitus, end stage renal disease, peripheral vascular disease, or sensory neuropathy should have a complete foot check completed annually. This includes a visual exam of the skin, pedal pulses and a sensory exam. Patients with any abnormality noted during the foot check should be referred to a specialist. Time spent today, including: Reviewing interim MSP VA- and non-MSP VA chart notes and test results, Independently obtaining history, Performing a medically appropriate exam and/or evaluation, Documenting clinical information in the progress note, Updating the CPRS problem list, Entering any non-VA medications in CPRS Independently interpreting results, Communicating results (verbally, in results letter), Counseling and educating patient/surrogate, Coordinating care with other health team members, Entering/signing orders, Completing reminders, Coding the encounter. Total Time: 45 min Urvashi Mathews MD General Internal Medicine [facility] PACT LAYNE 4F /es/ Urvashi Mathews MD Physician Signed: 12/31/2023 20:38 URVASHI MATHEWS [facility]
--- OUTSIDE RECORDS SUMMARY | 2024-04-07 08:00 | XMS_ITS | Encounter Summary ---
Author Name [facility] [facility] Address [address] [place] [address] Care Team Providers Care Change Management Lead Name Role Phone RODRÍGUEZ MATHEWS Primary Care Provider Unavailabl e Insurance [...] Blanchard's Name Patient's Relationship to Policy Blanchard [facility] (WNR) MEDICARE ADVANTAGE [facility] (WNR) Jun 08, 2023 [id number] SHERYL SERRANO PATIENT MEDICARE (WNR) MEDICARE (M) RR PART A Feb 06, 2003 RR PART A [id number] [phone] [id number] JANETTERUDDY GranadoARD PATIENT MEDICARE (WNR) MEDICARE (M) RR PART B Feb 06, 2003 RR PART B [id number] ZACHRUDDYSHERYL PATIENT MEDICARE PART D (WNR) MEDICARE (M) PART D Jun 08, 2022 PART D [id number] SHERYL SERRANO PATIENT [employer] MEDICARE SECONDARY (NO B EXC) UPREH S Jun 08, 2009 [id number] SHERYL SERRANO PATIENT Selected Encounter This section includes the information on record at [place] for the Encounter. Date/Time Encounter Type Encounter Description Reason Provider Source Apr 07, 2024 01:00 PM SELF CARE MNGMENT TRAINING PHYSICAL THERAPY ICD-10-CM R26.89 Other abnormalities of gait and mobility PROSPER HAYES [facility] Encounter Template Text not used by [facility] Assessments - Encounter Diagnoses This section includes the primary and secondary diagnoses documented for the Encounter. Date/Time Primary/Secondary Diagnosis Diagnosis Name Provider Source Apr 07, 2024 01:47 PM PRIMARY Other abnormalities of gait and mobility PROSPER HAYES [facility] Plan of Treatment: Future Appointments (+ 6 months) and Future Tests (+/- 45 days) The Plan of Treatment section includes future care activities for the patient [facility] [place] [facility] This section includes future appointments and future orders which are active, pending or scheduled. Future Appointments This section includes appointments that were scheduled to occur 6 months from the date of the Encounter, up to a maximum of 20 appointments. The data comes from all [place] treatment facilities. Appointment Date/Time Appointment Type Appointme nt Facility Name Apr 28, 2024 02:30 PM AMBULATORY - REHAB MEDICIN E [facility] May 17, 2024 02:30 PM AMBULATORY - REHAB MEDICIN E [facility] Jul 26, 2024 01:00 PM AMBULATORY - REHAB MEDICIN E [facility] Aug 13, 2024 07:00 AM AMBULATORY - NONE [place] [facility] Aug 25, 2024 01:30 PM [facility] - NONE [place] [facility] Sep 23, 2024 09:30 AM AMBULATORY - REHAB MEDICIN E [facility] Social History: Smoking Status (Most current) and Tobacco Use (All prior to encounter date) This section includes the most current, and the historical, smoking and tobacco- related health factors from the [place] facility where the Encounter took place. Current Smoking Status This section includes the most current smoking, or tobacco-related health factor, from the [place] facility where the Encounter took place. Date/Time Current Smoking Status Roxanna alcaraz Dec 31, 2023 01:30 PM VA-TOBACCO FORMER USER [facility] Tobacco Use History This section includes a history of the smoking, or tobacco-related health factors, that were collected on or before the date of the Encounter. The data comes from the [place] facility where the Encounter took place. Date/Time Smoking Status/Tobacco Use Comment F acility Dec 31, 2023 01:30 PM VA-TOBACCO QUIT 15 YRS OR MORE [facility] Dec 18, 2022 01:00 PM VA-TOBACCO FORMER USER [facility] Dec 18, 2022 01:00 PM VA-TOBACCO [...] this document. The data comes from all [place] facilities. Date Advance Directives Provider Source May 23, 2003 ADVANCE DIRECTIVE [facility] Encounter Notes: All associated encounter notes This section contains the clinical notes associated to the Encounter. Date/Time Encounter Note(s) Provider Source Apr 07, 2024 01:00 PM PHYSICAL THERAPY I NITIAL EVALUATION NOTE: LOCAL TITLE: PT-EVALUATION NOTE STANDARD TITLE: PHYSICAL THERAPY INITIAL EVALUATION NOTE DATE OF NOTE: APR 07, 2024@13:00 ENTRY DATE: APR 07, 2024@07:39:29 AUTHOR: SUZETTE HAYES COSIGNER: URGENCY: STATUS: COMPLETED PT-EVALUATION NOTE Has ADDENDA PT tx: PT mod complexity eval x 26 min, Self-care x 14 min PT dx: Other abnormalities of gait/mobility (neuropathy) Evaluation Date: Mar Suicide Screen Clinical Reminder Due: No # of VISITS: 1 # of CX/NS: 0 SUBJECTIVE: Relevant PMH: Hypothyroidism, Dyslipidemia, Diabetic neuropathy, Essential hypertension, Psoriasis Nos, Diabetic Retinopathy Associated with DMT2, Adenoma of large intestine, Coronary arteriosclerosis - s/p [id number] at [facility] in 07/15, 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 Pt is [place], so his supplements subjective information. Pt reports he saw an TV ad for the Walkasins and is hoping they could help him walk better. States he has neuropathy and balance concerns which significantly impacts his ability to walk safely. Has a complex PMH including fractures to left leg and foot with complication of infection (2005) and surgical repair for broken foot. Patient also with cardiac and renal disease - currently getting dialysis. Fall History: Denies any falls Home Environment: Lives in a multi-level home with ; 2 sets of stairs with chair lift recently installed. 3 [address] home. Equipment: MWC and 4ww Prior Level of Function: assists with dressing Support System/Caregiver: Pain: L LE pain, some days worse than others Previous intervention: Denies any PT recently. Social History/Health Habits: Retired. Sedentary. Having some weakness since silent MS and is undergoing further medical work-up to address. Red Flags: No personal history of cancer. Denies any UE or LE progressive weakness (yes - since silent MS), unexplained weight loss, loss of bowel/bladder control, pain with rest, fevers, chills, infections. Patient's Goal: Obtain Walkasins OBJECTIVE: PROMIS Physical Function with Mobility Aid - Short form: 33 (please see addendum for further details) OBSERVATION: Presents seated in power scooter VITALS: Resting, R arm (fistula for dialysis in L UE - NO BP in left arm) Blood Pressure: 133/64 mmHg Heart Rate: 78 bpm O2 Sats: 98% GAIT: Not observed today; pt able to take 2-3 short steps from power scooter to plinth. FUNCTIONAL STRENGTH SCREEN Functional LE Strength 5 Times Sit to Stand: required hands for assist - 23s Age Adjustive Norms MCID: 2.3 sec (vestibular population) 60-69 = 11.4 sec 70-79 = 12.6 sec 80-89 = 16.6 sec BALANCE *Four Stage Balance Test: Rombers Modified Tandem: 4s Tandem: Unable Single leg Stance: Unable - Total score: (add time up). Score < 30 indicates fall risk. ENDURANCE Two Minute Step Test: 30s, 13 steps - stopped because of being tired. Normative Repetitions (Imani & Nahun, 201 Age Men 85-89 59-91 SENSATION: Pt unable to feel light touch, bilateral feet and ankles in all distributions. Pt unable to feel vibratory sensation with use of tuning fork at ankle (ant/post/med & lat malleoli) PT INTERVENTIONS: risks/benefits reviewed and verbal consent obtained for interventions Self-care: -Discussed Walkasins trial - edu on how device works to improve balance. Edu that will need to do objective testing without device and with it before considering issuance. Pending this, as well as pt's feelings regarding it's effectiveness, could then consider it. Based on pt's inability to feel light touch or vibratory testing, unsure if device will be beneficial. However, pt would still like to proceed with trial. -Encouraged continued use of ADs to reduce falls risk. -Discussion of objective findings and POC Response to Treatment: Pt verbalizes understanding of PT POC. GOALS: 1. Pt will participate in PT evaluation to make determination on effectiveness of Walkasins device and consideration of issuance to improve balance in 1-4 visits. ASSESSMENT: Pt is a 84 yo MALE presenting to PT for Walkasins trial. Pt demonstrating impairment in gait quality, sensation, functional strength, static balance, and endurance resulting in difficulty with ambulation and increased risk of falling with functional mobility. Pt hopeful Walkasins could improve gait/balance for him; provided education on how device works to improve balance. Based on pt's inability to feel light touch or vibratory testing, unsure if device will be beneficial. However, pt would still like to proceed with trial. Will plan for f/u to use device and re-test objective testing with Walkasins. Pending this, could consider issuance. REHAB POTENTIAL: Fair CLINICAL PRESENTATION: stable PLAN: 3-4 PT sessions, 60 min in 2-3 wks - Next Session: -Continue Walkasins trial -Continue to monitor and refer as appropriate Patient Education on Treatment Plan: PT role, POC, rehab expectations. Patient indicated readiness to learn, verbalizes understanding, agreement and satisfaction with the treatment plan. Denies further questions. /katey/ SUZETTE HAYES DPT PHYSICAL THERAPIST Signed: 04/08/2024 08:47 04/08/2024 ADDENDUM STATUS: COMPLETED PROMIS Physical Function with Mobility Aid - Short Form Baseline PROMIS Pain Function & Mobility Can you walk 25 feet on a level surface (with or without support)? Yes Are you able to walk a block on flat ground? With a little difficulty (4) Are you able to walk up and down two steps? With much difficulty (2) Are you able to walk more than a mile? Unable to do (1) Are you able to wash and dry your body? With much difficulty (2) Are you able to get on and off the toilet? With some difficulty (3) Are you able to get in and out of bed? With some difficulty (3) Are you able to bend down and tile picker clothing from the floor? Unable to do (1) Are you able to cut your food using eating utensils? Without any difficulty (5) Are you able to push open a heavy door? With a little difficulty (4) Are you able to reach and get down and object (such as a can of soup) from above your head? Without any difficulty (5) Are you able to stand upright briefly without support? With some difficulty (3) RAW SCORE CONVERSION TO T-SCORE: T-Score value indicates how score relates to normative samples (a standardized score with a mean of 50 and a standard deviation (SD) of 10). T-Scores <=40 indicate patient is outside the normal range, being 1+ SD worse than average. RAW T-SCORE 33 30.80 /katey/ SUZETTE HAYES DPT PHYSICAL THERAPIST Signed: 04/08/2024 08:48 SUZETTE HAYES [facility]
--- OUTSIDE RECORDS SUMMARY | 2024-04-28 09:30 | XMS_ITS | Encounter Summary ---
Author Name [facility] [place] [facility] [place] Address [address] [place] [address] Care Team Providers Care Checker Dump Grounds Name Role Phone URVASHI MATHEWS Primary Care [...] Blanchard's Name Patient's Relationship to Policy Blanchard [facility] (WNR) MEDICARE ADVANTAGE [facility] (WNR) Jun 08, 2023 [id number] SHERYL SERRANO PATIENT MEDICARE (WNR) MEDICARE (M) RR PART A Feb 06, 2003 RR PART A [id number] JANETTERUDDY GranadoARD PATIENT MEDICARE (WNR) MEDICARE (M) RR PART B Feb 06, 2003 RR PART B [id number] [phone] ZACHRUDDYSHERYL PATIENT MEDICARE PART D (WNR) MEDICARE (M) PART D Jun 08, 2022 PART D [id number] SHERYL SERRANO PATIENT [facility] [employer] MEDICARE SECONDARY (NO B EXC) UPREH S Jun 08, 2009 [id number] SHERYL SERRANO PATIENT Selected Encounter This section includes the information on record at [place] for the Encounter. Date/Time Encounter Type Encounter Description Reason Provider Source Apr 28, 2024 02:30 PM SELF CARE MNGMENT TRAINING PHYSICAL THERAPY ICD-10-CM R26.89 Other abnormalities of gait and mobility PROSPER HAYES IHMarika Encounter Template Text not used by [place] Assessments - Encounter Diagnoses This section includes the primary and secondary diagnoses documented for the Encounter. Date/Time Primary/Secondary Diagnosis Diagnosis Name Provider Source Apr 28, 2024 03:35 PM PRIMARY Other abnormalities of gait and mobility PROSPER HAYES [facility] Plan of Treatment: Future Appointments (+ 6 months) and Future Tests (+/- 45 days) The Plan of Treatment section includes future care activities for the patient from all [place] [facility]. This section includes future appointments and future orders which are active, pending or scheduled. Future Appointments This section includes appointments that were scheduled to occur 6 months from the date of the Encounter, up to a maximum of 20 appointments. The data comes from all [place] treatment facilities. Appointment Date/Time Appointment Type Appointme nt Facility Name May 17, 2024 02:30 PM AMBULATORY - REHAB MEDICIN E [facility] Jul 26, 2024 01:00 PM AMBULATORY - REHAB MEDICIN E [facility] Aug 13, 2024 07:00 AM AMBULATORY - NONE [facility] Aug 25, 2024 01:30 PM AMBULATORY - NONE [facility] Sep 23, 2024 09:30 AM AMBULATORY - REHAB MEDICIN E [facility] October 10, 2024 07:01 AM [facility] October 10, 2024 07:05 AM [facility] Social History: Smoking Status (Most current) and Tobacco Use (All prior to encounter date) This section includes the most current, and the historical, smoking and tobacco- related health factors from the [place] facility where the Encounter took place. Current Smoking Status This section includes the most current smoking, or tobacco-related health factor, from the [place] facility where the Encounter took place. Date/Time Current Smoking Status Comment Billie alcaraz Dec 31, 2023 01:30 PM VA-TOBACCO FORMER USER [facility] Tobacco Use History This section includes a history of the smoking, or tobacco-related health factors, that were collected on or before the date of the Encounter. The data comes from the [place] facility where the Encounter took place. Date/Time Smoking Status/Tobacco Use Comment F acility Dec 31, 2023 01:30 PM VA-TOBACCO QUIT 15 YRS OR MORE [facility] Dec 18, 2022 01:00 PM VA-TOBACCO FORMER USER [facility] Dec 18, 2022 01:00 PM VA-TOBACCO QUIT 15 YRS OR MORE [facility] November 05, 2021 10:00 AM VA-TOBACCO FORMER USER [facility] November 05, 2021 10:00 AM VA-TOBACCO QUIT 15 YRS OR MORE [facility] Dec 10, 2018 12:57 PM VA-TOBACCO FORMER USER [facility] Dec 10, 2018 12:57 PM VA-TOBACCO QUIT 15 YRS OR MORE [facility] Feb 25, 2018 12:23 PM VA-TOBACCO FORMER USER [facility] Feb 25, 2018 12:23 PM VA-TOBACCO QUIT 15 YRS OR MORE [facility] Apr 10, 2015 02:55 PM FORMER TOBACCO USER 7Y OR GREATE R [facility] Apr 27, 2014 10:17 AM FORMER TOBACCO USER 7Y OR GREATE R [facility] Jun 18, 2006 07:23 AM FORMER TOBACCO USER 7Y OR GREATE R [facility] Advance Directives: All historical and current Section Date Range: From patient's date of to the date document was created. This section includes ALL of a patient's completed or amended [place] Advance and Rescinded Directives. The entries below indicate that a directive exists for the patient, but an actual copy is not included with this document. The data comes from all [facility]. Date Advance Directives Provider Source May 23, 2003 ADVANCE DIRECTIVE [facility] Encounter Notes: All associated encounter notes This section contains the clinical notes associated to the Encounter. Date/Time Encounter Note(s) Provider Source Apr 29, 2024 07:49 AM ADDENDUM: LOCAL TITLE: Addendum STANDARD TITLE: ADDENDUM DATE OF NOTE: APR 29, 2024@07:49:53 ENTRY DATE: APR 29, 2024@07:49:54 AUTHOR: SUZETTE HAYES COSIGNER: URGENCY: STATUS: COMPLETED Pt followed by PT for Walkasins trial. Pt experienced Orthostatic hypotension during session today; with seated rest and ther ex BP returned to baseline. Encouraged pt/ to monitor BP the rest of the day/week and educated on symptoms that would warrant further medical assistance either by ED or by calling cardiology/PCP. Pt and verbalize understanding; co-signing PCP for awareness and further follow-up if deemed necessary. /es/ SUZETTE HAYES DPT PHYSICAL THERAPIST Signed: 04/29/2024 07:52 Receipt Acknowledged By: 04/29/2024 15:35 /es/ Urvashi Mathews MD Physician --- Original Document --- 04/28/24 PT-PROGRESS NOTE: PT tx: NMR x 15 min, Self-care x 30 min PT dx: Other abnormalities of gait/mobility (neuropathy) Evaluation Date: Mar Suicide Screen Clinical Reminder Due: No # of VISITS: 2 # of CX/NS: 0 SUBJECTIVE: Relevant PMH: Hypothyroidism, Dyslipidemia, Diabetic neuropathy, Essential hypertension, Psoriasis Nos, Diabetic Retinopathy Associated with DMT2, Adenoma of large intestine, Coronary arteriosclerosis - s/p [id number] at [facility] in 07/15, Diabetic renal disease - 10/2018: started hemodialysis @ [facility] in [place], Hyperparathyroidism due to renal insufficiency, Chronic cough, Oropharyngeal dysphagia - 2013 [employer] eval in chart, Hemorrhoid, COPD, GERD, End-stage renal disease, Incontinence of feces Chief Concern: Pt is a 84yo MALE presenting with to PT for walkasins. Pt is [place], so his supplements subjective information. Returns today for first trial with Walkasins. Overall reporting he is feeling tired today. Had dialysis yesterday. Fall History: Denies any falls Home Environment: Lives in a multi-level home with ; 2 sets of stairs with chair lift recently installed. [address] home. Equipment: MWC and 4ww Prior Level of Function: assists with dressing Support System/Caregiver: Pain: L LE pain, some days worse than others Patient's Goal: Obtain Walkasins OBJECTIVE: OBSERVATION: Presents seated in power scooter VITALS: Resting, R arm (NO BP in left arm - fistula for dialysis in L UE) Initial BP: 111/58 mmHg After standing weight shift: 92/50 Resting 5 min: 109/59 Standing marching (36s): 84/46 Seated march: 128/58 Heart Rate: 73 bpm O2 Sats: 98% GAIT: Not observed today; pt required CGA for sit to stand and with transfer to [facility] today. 5x STS: attempted, but pt required min A of insurance underwriter sales with stand. SENSATION: Pt unable to feel light touch, bilateral feet and ankles in all distributions. Pt unable to feel vibratory sensation with use of tuning fork at ankle (ant/post/med & lat malleoli) PT INTERVENTIONS: risks/benefits reviewed and verbal consent obtained for interventions NMR: -Put on Walkasins - Large; pt able to feel vibration. -Performed standing weight shifts and standing marching with Walkasins *Ultimately had to end session due to pt feeling tired and OH with standing tasks. Self-care: -Reviewed Walkasins trial and how device works. Edu on process for how to turn on and don/doff. -Discussed BP: OH today with standing tasks but returned to baseline with seated. As a result, unable to complete trial this date as pt unable to perform testing with Walkasins on. Discussed BP symptoms and encouraged pt to f/u with cardiology; pt and indicating he has been dealing with these type of symptoms for a while now. Encouraged pt/ to continue to check BP and should it become low again seek medical evaluation either with ED or by calling PCP/cardiology. Pt and verbalize understanding and are agreeable. Will co-sign PCP for awareness. -Encouraged continued use of ADs to reduce falls risk. -Discussion of POC: will place RTC to attempt walkasins trial/testing again. Response to Treatment: Pt verbalizes understanding of PT POC. GOALS: 1. Pt will participate in PT evaluation to make determination on effectiveness of Walkasins device and consideration of issuance to improve balance in 1-4 visits. IN PROGRESS ASSESSMENT: Pt is a 84 yo MALE presenting to PT for Walkasins trial. Pt demonstrating impairment in gait quality, sensation, functional strength, static balance, and endurance resulting in difficulty with ambulation and increased risk of falling with functional mobility. Pt returned to PT for Walkasins trial; edu provided on device, how to don/doff, etc. However, unfortunately during session pt experienced hypotension with standing tasks, so unable to complete testing with Walkasins. With seated rest and ther ex, BP returned to baseline. Encouraged pt/ to monitor BP the rest of the day/week. Edu on symptoms and when to seek further medical assistance either by ED or by calling cardiology/PCP. Pt and verbalize understanding. As pt unable to complete trial today, placed RTC order for follow-up to trial again. REHAB POTENTIAL: Fair CLINICAL PRESENTATION: stable PLAN: 3-4 PT sessions, 60 min in 2-3 wks - Next Session: -Check in on BP -Continue Walkasins trial -Continue to monitor and refer as appropriate Patient Education on Treatment Plan: PT role, POC, rehab expectations. Patient indicated readiness to learn, verbalizes understanding, agreement and satisfaction with the treatment plan. Denies further questions. /katey/ SUZETTE HAYES DPT PHYSICAL THERAPIST Signed: 04/29/2024 07:49 SUZETTE HAYES [facility] Apr 28, 2024 02:30 PM PHYSICAL THERAPY NOTE: LOCAL TITLE: PT-PROGRESS NOTE STANDARD TITLE: PHYSICAL THERAPY NOTE DATE OF NOTE: APR 28, 2024@14:30 ENTRY DATE: APR 28, 2024@07:38:34 AUTHOR: SUZETTE HAYES EXP COSIGNER: URGENCY: STATUS: COMPLETED PT-PROGRESS NOTE Has ADDENDA PT tx: NMR x 15 min, Self-care x 30 min PT dx: Other abnormalities of gait/mobility (neuropathy) Evaluation Date: Mar Suicide Screen Clinical Reminder Due: No # of VISITS: 2 # of CX/NS: 0 SUBJECTIVE: Relevant PMH: Hypothyroidism, Dyslipidemia, Diabetic neuropathy, Essential hypertension, Psoriasis Nos, Diabetic Retinopathy Associated with DMT2, Adenoma of large intestine, Coronary arteriosclerosis - s/p [id number] at [facility] in 07/15, Diabetic renal disease - 10/2018: started hemodialysis @ [facility] in [place], Hyperparathyroidism due to renal insufficiency, Chronic cough, Oropharyngeal dysphagia - 2013 [employer] eval in chart, Hemorrhoid, COPD, GERD, End-stage renal disease, Incontinence of feces Chief Concern: Pt is a 84yo MALE presenting with to PT for walkasins. Pt is [place], so his supplements subjective information. Returns today for first trial with Walkasins. Overall reporting he is feeling tired today. Had dialysis yesterday. Fall History: Denies any falls Home Environment: Lives in a multi-level home with ; 2 sets of stairs with chair lift recently installed. [address] home. Equipment: MWC and 4ww Prior Level of Function: assists with dressing Support System/Caregiver: Pain: L LE pain, some days worse than others Patient's Goal: Obtain Walkasins OBJECTIVE: OBSERVATION: Presents seated in power scooter VITALS: Resting, R arm (NO BP in left arm - fistula for dialysis in L UE) Initial BP: 111/58 mmHg After standing weight shift: 92/50 Resting 5 min: 109/59 Standing marching (36s): 84/46 Seated march: 128/58 Heart Rate: 73 bpm O2 Sats: 98% GAIT: Not observed today; pt required CGA for sit to stand and with transfer to [facility] today. 5x STS: attempted, but pt required min A of insurance underwriter sales with stand. SENSATION: Pt unable to feel light touch, bilateral feet and ankles in all distributions. Pt unable to feel vibratory sensation with use of tuning fork at ankle (ant/post/med & lat malleoli) PT INTERVENTIONS: risks/benefits reviewed and verbal consent obtained for interventions NMR: -Put on Walkasins - Large; pt able to feel vibration. -Performed standing weight shifts and standing marching with Walkasins *Ultimately had to end session due to pt feeling tired and OH with standing tasks. Self-care: -Reviewed Walkasins trial and how device works. Edu on process for how to turn on and don/doff. -Discussed BP: OH today with standing tasks but returned to baseline with seated. As a result, unable to complete trial this date as pt unable to perform testing with Walkasins on. Discussed BP symptoms and encouraged pt to f/u with cardiology; pt and indicating he has been dealing with these type of symptoms for a while now. Encouraged pt/ to continue to check BP and should it become low again seek medical evaluation either with ED or by calling PCP/cardiology. Pt and verbalize understanding and are agreeable. Will co-sign PCP for awareness. -Encouraged continued use of ADs to reduce falls risk. -Discussion of POC: will place RTC to attempt walkasins trial/testing again. Response to Treatment: Pt verbalizes understanding of PT POC. GOALS: 1. Pt will participate in PT evaluation to make determination on effectiveness of Walkasins device and consideration of issuance to improve balance in 1-4 visits. IN PROGRESS ASSESSMENT: Pt is a 84 yo MALE presenting to PT for Walkasins trial. Pt demonstrating impairment in gait quality, sensation, functional strength, static balance, and endurance resulting in difficulty with ambulation and increased risk of falling with functional mobility. Pt returned to PT for Walkasins trial; edu provided on device, how to don/doff, etc. However, unfortunately during session pt experienced hypotension with standing tasks, so unable to complete testing with Walkasins. With seated rest and ther ex, BP returned to baseline. Encouraged pt/ to monitor BP the rest of the day/week. Edu on symptoms and when to seek further medical assistance either by ED or by calling cardiology/PCP. Pt and verbalize understanding. As pt unable to complete trial today, placed RTC order for follow-up to trial again. REHAB POTENTIAL: Fair CLINICAL PRESENTATION: stable PLAN: 3-4 PT sessions, 60 min in 2-3 wks - Next Session: -Check in on BP -Continue Walkasins trial -Continue to monitor and refer as appropriate Patient Education on Treatment Plan: PT role, POC, rehab expectations. Patient indicated readiness to learn, verbalizes understanding, agreement and satisfaction with the treatment plan. Denies further questions. /katey/ SUZETTE HAYES DPT PHYSICAL THERAPIST Signed: 04/29/2024 07:49 04/29/2024 ADDENDUM STATUS: COMPLETED Pt followed by PT for Walkasins trial. Pt experienced Orthostatic hypotension during session today; with seated rest and ther ex BP returned to baseline. Encouraged pt/ to monitor BP the rest of the day/week and educated on symptoms that would warrant further medical assistance either by ED or by calling cardiology/PCP. Pt and verbalize understanding; co-signing PCP for awareness and further follow-up if deemed necessary. /es/ SUZETTE HAYES DPT PHYSICAL THERAPIST Signed: 04/29/2024 07:52 Receipt Acknowledged By: * AWAITING SIGNATURE * URVASHI MATHEWS [facility]ITTANY [facility]
--- OUTSIDE RECORDS SUMMARY | 2024-05-17 09:30 | XMS_ITS | Encounter Summary ---
Author Name [facility] [place] Address [address] [place] [address] Care Team Providers Care Binder Selector Name Role Phone RODRÍGUEZ MATHEWS Primary Care [...] Blanchard's Name Patient's Relationship to Policy Blanchard [facility] (WNR) MEDICARE ADVANTAGE [facility] (WNR) Jun 08, 2023 [id number] SHERYL SERRANO PATIENT MEDICARE (WNR) MEDICARE (M) RR PART A Feb 06, 2003 RR PART A [id number] JANETTERUDDY GranadoARD PATIENT MEDICARE (WNR) MEDICARE (M) RR PART B Feb 06, 2003 RR PART B [id number] [phone] ZACHRUDDYSHERYL PATIENT MEDICARE PART D (WNR) MEDICARE (M) PART D Jun 08, 2022 PART D [id number] SHERYL SERRANO PATIENT [employer] MEDICARE SECONDARY (NO B EXC) UPREH S Jun 08, 2009 [id number] SHERYL SERRANO PATIENT Selected Encounter This section includes the information on record at [place] for the Encounter. Date/Time Encounter Type Encounter Description Reason Provider Source May 17, 2024 02:30 PM SELF CARE MNGMENT TRAINING PHYSICAL THERAPY ICD-10-CM R26.89 Other abnormalities of gait and mobility PROSPER HAYES IHMarika Encounter Template Text not used by [place] Assessments - Encounter Diagnoses This section includes the primary and secondary diagnoses documented for the Encounter. Date/Time Primary/Secondary Diagnosis Diagnosis Name Provider Source May 17, 2024 03:35 PM PRIMARY Other abnormalities of gait and mobility PROSPER HAYES Tamra Alfonso [facility] Plan of Treatment: Future Appointments (+ 6 months) and Future Tests (+/- 45 days) The Plan of Treatment section includes future care activities for the patient from all [place] [facility]. This section includes future appointments and future orders which are active, pending or scheduled. Future Appointments This section includes appointments that were scheduled to occur 6 months from the date of the Encounter, up to a maximum of 20 appointments. The data comes from all [place] treatment facilities. Appointment Date/Time Appointment Type Appointme nt Facility Name Jul 26, 2024 01:00 PM AMBULATORY - REHAB MEDICIN E [facility] Aug 13, 2024 07:00 AM AMBULATORY - NONE [facility] Aug 25, 2024 01:30 PM AMBULATORY - NONE [facility] Sep 23, 2024 09:30 AM AMBULATORY - REHAB MEDICIN [facility] October 10, 2024 07:01 AM AMBULATORY - NONE [facility] October 10, 2024 07:05 AM AMBULATORY - NONE [facility] Social History: Smoking Status (Most current) and Tobacco Use (All prior to encounter date) This section includes the most current, and the historical, smoking and tobacco- related health factors from the [place] facility where the Encounter took place. Current Smoking Status This section includes the most current smoking, or tobacco-related health factor, from the [place] facility where the Encounter took place. Date/Time Current Smoking Status Comment Facil ity Dec 31, 2023 01:30 PM VA-TOBACCO FORMER USER [facility] Tobacco Use History This section includes a history of the smoking, or tobacco-related health factors, that were collected on or before the date of the Encounter. The data comes from the [place] facility where the Encounter took place. Date/Time Smoking Status/Tobacco Use Comment F acility Dec 31, 2023 01:30 PM VA-TOBACCO QUIT 15 YRS OR MORE [facility] Dec 18, 2022 01:00 PM VA-TOBACCO FORMER USER [facility] Dec 18, 2022 01:00 PM VA-TOBACCO QUIT 15 YRS OR MORE [facility] November 05, 2021 10:00 AM VA-TOBACCO FORMER USER [facility] November 05, 2021 10:00 AM VA-TOBACCO QUIT 15 YRS OR MORE [facility] Dec 10, 2018 12:57 PM VA-TOBACCO FORMER USER [facility] Dec 10, 2018 12:57 PM VA-TOBACCO QUIT 15 YRS OR MORE [facility] Feb 25, 2018 12:23 PM VA-TOBACCO FORMER USER [facility] Feb 25, 2018 12:23 PM VA-TOBACCO QUIT 15 YRS OR MORE [facility] Apr 10, 2015 02:55 PM FORMER TOBACCO USER 7Y OR GREATE R [facility] Apr 27, 2014 10:17 AM FORMER TOBACCO USER 7Y OR GREATE R [facility] Jun 18, 2006 07:23 AM FORMER TOBACCO USER 7Y OR GREATE R [facility] Advance Directives: All historical and current Section Date Range: From patient's date of to the date document was created. This section includes ALL of a patient's completed or amended [place] Advance and Rescinded Directives. The entries below indicate that a directive exists for the patient, but an actual copy is not included with this document. The data comes from all [place] facilities. Date Advance Directives Provider Source May 23, 2003 ADVANCE DIRECTIVE [facility] Encounter Notes: All associated encounter notes This section contains the clinical notes associated to the Encounter. Date/Time Encounter Note(s) Provider Source May 17, 2024 02:30 PM PHYSICAL THERAPY NOTE: LOCAL TITLE: PT-PROGRESS NOTE STANDARD TITLE: PHYSICAL THERAPY NOTE DATE OF NOTE: MAY 17, 2024@14:30 ENTRY DATE: MAY 17, 2024@07:43:19 AUTHOR: SUZETTE HAYES COSIGNER: URGENCY: STATUS: COMPLETED PT tx: Physical Performance test x 30 min, Self-care x 15 min PT dx: Other abnormalities of gait/mobility (neuropathy) Evaluation Date: Mar Suicide Screen Clinical Reminder Due: No # of VISITS: 3 # of CX/NS: 0 SUBJECTIVE: Relevant PMH: Hypothyroidism, Dyslipidemia, Diabetic neuropathy, Essential hypertension, Psoriasis Nos, Diabetic Retinopathy Associated with DMT2, Adenoma of large intestine, Coronary arteriosclerosis - s/p [id number] at 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 Pt is [place], so his supplements subjective information. Returns today for trial with Walkasins. Is feeling better today; reports Cardiac team started him on Plavix and he was told it was ok to increase fluid intake which seems to have helped BP a bit. Fall History: Denies any falls Home Environment: Lives in a multi-level home with ; 2 sets of stairs with chair lift recently installed. 3 [address]AN[address] home. Equipment: MWC and 4ww Prior Level of Function: assists with dressing Support System/Caregiver: Pain: L LE pain, some days worse than others Patient's Goal: Obtain Walkasins OBJECTIVE: OBSERVATION: Presents seated in power scooter; improved ease of mobility this date without need for assist. VITALS: Resting, R arm (NO BP in left arm - fistula for dialysis in L UE) Initial BP: 142/72 mmHg Heart Rate: 73 bpm O2 Sats: 94% Without Walkasins // With Walkasins GAIT: Patient ambulates 10ft in clinic space with 2ww and Walkasins FUNCTIONAL STRENGTH SCREEN Functional LE Strength: 5 Times Sit to Stand: 23s (required hands for assist) // 20s (with hands) Age Adjustive Norms MCID: 2.3 sec (vestibular population) 60-69 = 11.4 sec 70-79 = 12.6 sec 80-89 = 16.6 sec BALANCE Four Stage Balance Test: BP - 111/57 prior Rombers // 10s Modified Tandem: 4s // 10s Tandem: Unable // 3s Single leg Stance: Unable // Unable - Total score: 14s // 23s. Score < 30 indicates fall risk. *After 4 stage: BP - 129/59 mmHg ENDURANCE Two Minute Step Test: 30s, 13 steps - stopped because of being tired. No change with Walkasins donned. Normative Repetitions (Imani & Nahun, 201 Age Men 85-89 59-91 End of session: BP - 115/61 mmHg PT INTERVENTIONS: risks/benefits reviewed and verbal consent obtained for interventions Physical Performance testing: -Put on Walkasins - Large; pt able to feel vibration. -Completed above outcome measures with Walkasins donned. -Frequent rest breaks required d/t fatigue and monitoring BP. Self-care: -Reviewed Walkasins trial and how device works. Edu on process for how to turn on and don/doff. -Discussed BP: encouraged continued monitoring and adhering to recommendations from cardiac/dialysis MDs. -Encouraged continued use of ADs to reduce falls risk. -Discussion of POC: will place RTC to continue Walkasins trial/testing again. Response to Treatment: Pt verbalizes understanding of PT POC. GOALS: 1. Pt will participate in PT evaluation to make determination on effectiveness of Walkasins device and consideration of issuance to improve balance in 1-4 visits. - IN PROGRESS ASSESSMENT: Pt is a 84 yo MALE presenting to PT for Walkasins trial. Pt demonstrating impairment in gait quality, sensation, functional strength, static balance, and endurance resulting in difficulty with ambulation and increased risk of falling with functional mobility. Pt returns today for Walkasins trial; reports he has had some medication changes and was told to increase fluid intake. BP improved from prior visit and pt able to tolerate session better today, however, still limited by fatigue and need for frequent rest breaks. Able to repeat 5x sit to stand and 4 stage balance testing with Walkasins; pt does demonstrate improvement with both of these. Repeated 2min step test; no improvement noted with this test. However, cardiac and renal disease likely main limiting factors for this testing. Will have patient return to PT for additional testing with device including ambulation in parallel bars and functional activities. Pending this, will determine if device is appropriate for issuance. REHAB POTENTIAL: Fair CLINICAL PRESENTATION: stable PLAN: 3-4 PT sessions, 60 min in 2-3 wks - Next Session: -Monitor BP -Continue Walkasins trial - cardiac/renal PMH and impact on mobility *Ambulation in // bars with and without Walkasins, functional activities -Continue to monitor and refer as appropriate Patient Education on Treatment Plan: PT role, POC, rehab expectations. Patient indicated readiness to learn, verbalizes understanding, agreement and satisfaction with the treatment plan. Denies further questions. /katey/ SUZETTE HAYES DPT PHYSICAL THERAPIST Signed: 05/18/2024 14:33 SUZETTE HAYES [facility]
--- OUTSIDE RECORDS SUMMARY | 2024-06-06 13:51 | XMS_ITS | Encounter Summary ---
Author Name [facility] [place] Organization [place] Address [address] [place] [address] Care Team Providers Care Engagement Manager Name Role Phone RODRÍGUEZ MATHEWS Primary Care [...] Blanchard's Name Patient's Relationship to Policy Blanchard [facility] (WNR) MEDICARE ADVANTAGE [facility] (WNR) Jun 08, 2023 [id number] SHERYL SERRANO PATIENT MEDICARE (WNR) MEDICARE (M) RR PART A Feb 06, 2003 RR PART A [id number] [id number] SHERYL SERRANO PATIENT MEDICARE (WNR) MEDICARE (M) RR PART B Feb 06, 2003 RR PART B [id number] SHERYL SERRNAO PATIENT MEDICARE PART D (WNR) MEDICARE (M) PART D Jun 08, 2022 PART D [id number] SHERYL SERRANO PATIENT [employer] MEDICARE SECONDARY (NO B EXC) UPREH S Jun 08, 2009 [id number] SHERYL SERRANO PATIENT Selected Encounter This section includes the information on record at [place] for the Encounter. Date/Time Encounter Type Encounter Description Reason Pro vider Source Jun 06, 2024 06:51 PM Outpatient Encounter COMMUNITY CARE CONSULT IHE Encounter Template Text not used by [place] Plan of Treatment: Future Appointments (+ 6 months) and Future Tests (+/- 45 days) The Plan of Treatment section includes future care activities for the patient from all [facility] This section includes future appointments [...] 01:00 PM AMBULATORY - REHAB MEDICIN E [facility] Aug 13, 2024 07:00 AM AM[place]ULATORY - NONE [place] [facility] Aug 25, 2024 01:30 PM [facility] Sep 23, 2024 09:30 AM AMBULATORY - REHAB MEDICIN E [facility] October 10, 2024 07:01 AM AMBULATORY - NONE [place] [facility] October 10, 2024 07:05 AM [facility] Social History: Smoking Status (Most current) [...] 2023 01:30 PM VA-TOBACCO FORMER USER [facility] Tobacco Use History This section includes a history of the smoking, or tobacco-related health factors, that were collected on or before the date of the Encounter. The data comes from the [place] facility where the Encounter took place. Date/Time Smoking Status/Tobacco Use Comment F acility Dec 31, 2023 01:30 PM VA-TOBACCO QUIT [address] [facility] Dec 18, 2022 01:00 PM VA-TOBACCO FORMER USER [facility] Dec 18, 2022 01:00 PM VA-TOBACCO QUIT [address] [facility] November 05, 2021 10:00 AM VA-TOBACCO FORMER USER [facility] November 05, 2021 10:00 AM VA-TOBACCO QUIT [address] [facility] Dec 10, 2018 12:57 PM VA-TOBACCO FORMER USER [facility] Dec 10, 2018 12:57 PM VA-TOBACCO QUIT [address] [facility] Feb 25, 2018 12:23 PM VA-TOBACCO FORMER USER [facility] Feb 25, 2018 12:23 PM VA-TOBACCO QUIT [address] [facility] Apr 10, 2015 02:55 PM FORMER TOBACCO USER 7Y OR GREATE R [facility] Apr 27, 2014 10:17 AM FORMER TOBACCO USER 7Y OR GRE[address] R [facility] Jun 18, 2006 07:23 AM FORMER TOBACCO USER 7Y OR GRE[address] R [facility] Advance Directives: All historical and current [...] Source May 23, 2003 ADVANCE DIRECTIVE LORRIEKINGS [facility] Encounter Notes: All associated encounter notes This section contains the clinical notes associated to the Encounter. Date/Time Encounter Note(s) Provider Source Jun 06, 2024 06:51 PM PHARMACY NOTE: LOCAL TITLE: PHARMACY NON [place] CARE MEDICATIONS STANDARD TITLE: PHARMACY NOTE DATE OF NOTE: JUN 06, 2024@18:51 ENTRY DATE: JUN 06, 2024@18:51:51 AUTHOR: SCOOBY GONZALEZ EXP COSIGNER: URGENCY: STATUS: COMPLETED The [facility] received the following electronic prescription(s): 1. [id number] clopidogreL 75 mg tablet eRx Qty: 90 eRx # of Refills: 3 eRx Days Supply: SIG: Take 1 Tablet (75 mg) by mouth once daily. Re order from 03/25/24 Date received: 06/06/24 Ordering Provider: LEILA PERKINS The outside (NON-VA) provider is not authorized to write for prescription(s) through community care at this [place] pharmacy at this time. Prescription request FORWARDED via FAX to Chirag Webster /katey/ SCOOBY GONZALEZ PharmD Signed: 06/06/2024 18:[address] [facility]
--- OUTSIDE RECORDS SUMMARY | 2024-06-20 06:20 | XMS_ITS | Encounter Summary ---
Author Name [facility] ([place]) [facility] Address [address] [place] [address] Care Team Providers Care Public Relations Director Name Role Phone URVASHI MATHEWS Primary Care [...] Blanchard's Name Patient's Relationship to Policy Blanchard [facility] (WNR) MEDICARE ADVANTAGE [facility] (WNR) Jun 08, 2023 [id number] SHERYL SERRANO PATIENT MEDICARE (WNR) MEDICARE (M) RR PART A Feb 06, 2003 RR PART A [id number] JANETTEVannesa SHERYL PATIENT MEDICARE (WNR) MEDICARE (M) RR PART B Feb 06, 2003 RR PART B [id number] SHERYL SERRANO PATIENT MEDICARE PART D (WNR) MEDICARE (M) PART D Jun 08, 2022 PART D [id number] SHERYL SERRANO PATIENT [employer] MEDICARE SECONDARY (NO B EXC) UPREH S Jun 08, 2009 [id number] SHERYL SERRANO PATIENT Selected Encounter This section includes the information on record at [place] for the Encounter. Date/Time Encounter Type Encounter Description Reason Pro vider Source Jun 20, 2024 11:20 AM Outpatient Encounter CLINICAL PHARMACY IHE Encounter Template Text not used by MD Plan of Treatment: Future Appointments (+ 6 months) and Future Tests (+/- 45 days) The Plan of Treatment section includes future care activities for the patient from all [facility]. This section includes future appointments and future orders which are active, pending or scheduled. Future Appointments This section includes appointments that were scheduled to occur 6 months from the date of the Encounter, up to a maximum of 20 appointments. The data comes from all [facility]. Appointment Date/Time Appointment Type Appointme nt Facility Name Jul 26, 2024 01:00 [facility] Aug 13, 2024 07:00 AM [facility] Aug 25, 2024 01:30 PM [facility] Sep 23, 2024 09:30 AM AMBULATORY - REHAB MEDICIN E [facility] October 10, 2024 07:01 AM [facility] October 10, 2024 07:05 AM AMBULATORY - NONE [facility] Active, Pending, and Scheduled Orders This section includes a listing of several types of active, pending, and scheduled orders, including clinic medications orders, diagnostic test orders, procedure orders and consult orders; where the start date of the order is 45 days before the date of the Encounter or 45 days after the date of theEncounter. The data comes from all [facility]. Test Date/Time Test Type Test Details Facility Name Jul 26, 2024 05:13 PM Consult Order COMMUNITY CARE-PT Cons Nurseryperson's Choice [facility] Social History: Smoking Status (Most [...] 31, 2023 01:30 PM VA-TOBACCO FORMER USER [facility] Tobacco Use History This section includes a history of the smoking, or tobacco-related health factors, that were collected on or before the date of the Encounter. The data comes from the [place] facility where the Encounter took place. Date/Time Smoking Status/Tobacco Use Comment F acility Dec 31, 2023 01:30 PM VA-TOBACCO QUIT 15 YRS OR MORE [facility] Dec 18, 2022 01:00 PM VA-TOBACCO FORMER USER [facility] Dec 18, 2022 01:00 PM VA-TOBACCO QUIT 15 YRS OR MORE [facility] November 05, 2021 10:00 AM VA-TOBACCO FORMER USER [facility] November 05, 2021 10:00 AM VA-TOBACCO QUIT 15 YRS OR MORE [facility] Dec 10, 2018 12:57 PM VA-TOBACCO FORMER USER [facility] Dec 10, 2018 12:57 PM VA-TOBACCO QUIT 15 YRS OR MORE [facility] Feb 25, 2018 12:23 PM VA-TOBACCO FORMER USER [facility] Feb 25, 2018 12:23 PM VA-TOBACCO QUIT 15 YRS OR MORE [facility] Apr 10, 2015 02:55 PM FORMER TOBACCO USER 7Y OR GREATE R [facility] Apr 27, 2014 10:17 AM FORMER TOBACCO USER 7Y OR GREATE R [facility] Jun 18, 2006 07:23 AM FORMER TOBACCO USER 7Y OR GREATE R [facility] Advance Directives: All historical and [...] May 23, 2003 ADVANCE DIRECTIVE [facility] Encounter Notes: All associated encounter notes This section contains the clinical notes associated to the Encounter. Date/Time Encounter Note(s) Provider Source Jun 20, 2024 11:20 AM PHARMACY NOTE: LOCAL TITLE: PHARMACY PROGRESS NOTE STANDARD TITLE: PHARMACY NOTE DATE OF NOTE: JUN 20, 2024@11:20 ENTRY DATE: JUN 20, 2024@11:20:53 AUTHOR: JULITA SHARP EXP COSIGNER: URGENCY: STATUS: COMPLETED Please note the following medication requires a pharmacy prior authorization prior to being dispensed to the : CLOPIDOGREL BISULFATE 75MG TAB (Require Pharm PA consult for indefinite use) To enter a pharmacy prior authorization go to the consults tab -> new consult -> #20 Outpatient consult menu -> Under PHARMACY select PHARMACY DRUG APPROVAL OUTPT -> select drug specific criteria, if no criteria exists select other drugs needing prior authorization. Please document rationale for usage of non-formulary agent in space provided to expedited review. Of note, pharmacy has 96 hours to complete pharmacy prior authorizations so medications may not be available for window leaf size picker for several days. The VA formulary can be located on the following website which provides you with formulary agents when appropriate and criteria for use if available. http://www.[facility].[place].gov/apps/chace tionalformulary/ Please call the Outpatient pharmacy provider triage line at [phone] if you have any questions. Thank you, /katey/ JULITA SHARP Pharmacist Signed: 06/20/2024 11:21 Receipt Acknowledged By: 06/20/2024 12:03 /katey/ Urvashi Mathews MD Physician JULITA SHARP [facility]
--- OUTSIDE RECORDS SUMMARY | 2024-06-20 06:52 | XMS_ITS | Encounter Summary ---
Author Name [facility] [place] Organization [place] Address [address] [place] [address] Care Team Providers Care Procurement Professional Name Role Phone RODRÍGUEZ MATHEWS Primary Care [...] Name Patient's Relationship to Policy Blanchard [facility] (WNR) MEDICARE ADVANTAGE [facility] (WNR) Jun 08, 2023 [id number] SHERYL SERRANO PATIENT MEDICARE (WNR) MEDICARE (M) RR PART A Feb 06, 2003 RR PART A [id number] SHERYL SERRANO PATIENT MEDICARE (WNR) MEDICARE (M) RR PART B Feb 06, 2003 RR PART B [id number] SHERYL SERRANO PATIENT MEDICARE PART D (WNR) MEDICARE (M) PART D Jun 08, 2022 PART D [id number] SHERYL SERRANO PATIENT [employer] MEDICARE SECONDARY (NO B EXC) UPREH S Jun 08, 2009 [id number] SHERYL SERRANO PATIENT Selected Encounter This section includes the information on record at [place] for the Encounter. Date/Time Encounter Type Encounter Description Reason Pro vider Source Jun 20, 2024 11:52 AM Outpatient Encounter COMMUNITY CARE CONSULT IHE Encounter Template Text not used by [place] Plan of Treatment: Future Appointments (+ 6 months) and Future Tests (+/- 45 days) The Plan of Treatment section includes future care activities for the patient from all [place] [facility]. This section includes future appointments and future orders which are active, pending or scheduled. Future Appointments This section includes appointments that were scheduled to occur 6 months from the date of the Encounter, up to a maximum of 20 appointments. The data comes from all [facility]. Appointment Date/Time Appointment Type Appointme nt Facility Name Jul 26, 2024 01:00 PM [facility] 13, [facility]24 07[facility]00 [facility] Aug 25, 2024 01:30 [facility] Sep 23, 2024 09:30 AM AMBULATORY - REHAB MEDICIN E [facility] October 10, 2024 07:01 AM [facility] October 10, 2024 07:05 AM AMBULATORY - NONE [facility] Active, Pending, and Scheduled Orders This section includes a listing of several types of active, pending, and scheduled orders, including clinic medications orders, diagnostic test orders, procedure orders and consult orders; where the start date of the order is 45 days before the date of the Encounter or 45 days after the date of theEncounter. The data comes from all [facility]. Test Date/Time Test Type Test Details Facility Name Jul 26, 2024 05:13 PM Consult Order COMMUNITY CARE-PT Cons Home Administrator's Choice [facility] Social History: Smoking Status (Most current) and Tobacco Use (All prior to encounter date) This section includes the most current, and the historical, smoking and tobacco- related health factors from the [place] facility where the Encounter took place. Current Smoking Status This section includes the most current smoking, or tobacco-related health factor, from the [place] facility where the Encounter took place. Date/Time Current Smoking Status Comment Facil kieran Dec 31, 2023 01:30 PM VA-TOBACCO FORMER USER [facility] [...] YRS OR MORE [facility] Dec 18, 2022 01:00 PM VA-TOBACCO FORMER USER [facility] Dec 18, 2022 01:00 PM VA-TOBACCO QUIT [...] from all [facility]. Date Advance Directives Provider Source May 23, 2003 ADVANCE DIRECTIVE [facility] Encounter Notes: All associated encounter notes This section contains the clinical notes associated to the Encounter. Date/Time Encounter Note(s) Provider Source Jun 20, 2024 11:52 AM PHARMACY NOTE: LOCAL TITLE: PHARMACY NON VA CARE MEDICATIONS STANDARD TITLE: PHARMACY NOTE DATE OF NOTE: JUN 20, 2024@11:52 ENTRY DATE: JUN 20, 2024@11:52:19 AUTHOR: TYSON LEONG COSIGNER: URGENCY: STATUS: COMPLETED [facility] RECEIVED electronic prescription(s) (eRX(s)) from NON-VA Provider: Dr. Tran Date eRX received: Jun Outside (NON-VA) provider not authorized to write for prescription(s) through [place] pharmacy. Prescription request REDIRECTED via FAX to one of the following for review: [x][facility] (Dual) [facility] [ ]Other: eRx Prescription Information: 1. [id number] midodrine 10 mg tablet JENNIFER TRANWELL 06/20/24 N A eRx Qty: 90 eRx # of Refills: 3 eRx Days Supply: SIG: Take 1 tablet by mouth as directed take 1 tablet before dialysis and 1 tablet after dialysis on dialysis days, pre for hypotension other days /es/ TYSON LEONG PHARMACIST Signed: 06/20/2024 11:52 TYSON LEONG [facility]
--- OUTSIDE RECORDS SUMMARY | 2024-06-20 07:30 | XMS_ITS | Encounter Summary ---
Author Name [facility] [facility] [place] Address [address] [place] [address] Care Team Providers Care Cost Accountant Name Role Phone RODRÍGUEZ MATHEWS Primary Care [...] Blanchard's Name Patient's Relationship to Policy Blanchard [facility] MCR (WNR) MEDICARE ADVANTAGE [facility] (WNR) Jun 08, 2023 [id number] JANETTEVannesa SHERYL PATIENT MEDICARE (WNR) MEDICARE (M) RR PART A Feb 06, 2003 RR PART A [id number] MIKMOLLYRUDDY GranadoARD PATIENT MEDICARE (WNR) MEDICARE (M) RR PART B Feb 06, 2003 RR PART B [id number] JANETTERUDDY GranadoARD PATIENT MEDICARE PART D (WNR) MEDICARE (M) PART D Jun 08, 2022 PART D [id number] JANETTEVannesa SHERYL PATIENT [employer] MEDICARE SECONDARY (NO B EXC) UPREH S Jun 08, 2009 [id number] SHERYL SERRANO PATIENT Selected Encounter This section includes the information on record at [place] for the Encounter. Date/Time Encounter Type Encounter Description Reason Provider Source Jun 20, 2024 12:30 PM NQHP OL DIG ASSMT&MGMT 5-10 CLINICAL PHARMACY ICD-10-CM I25.10 [place] heart disease of [place] coronary artery w/o ang pctrs PIOTR BOOTHE Marika Encounter Template Text not used by [place] Assessments - Encounter Diagnoses This section includes the primary and secondary diagnoses documented for the Encounter. Date/Time Primary/Secondary Diagnosis Diagnosis Name Provider Source Jun 20, 2024 12:43 PM PRIMARY [place] heart disease of [place] coronary artery [facility] Jun 20, 2024 12:43 PM SECONDARY Peripheral vascular disease, unspecified PIOTR BOOTHE [facility] Plan of Treatment: Future Appointments (+ 6 months) and Future Tests (+/- 45 days) The Plan of Treatment section includes future care activities for the patient [facility] This section includes future appointments and future orders which are active, pending or scheduled. Future Appointments This section includes appointments that were scheduled to occur 6 months from the date of the Encounter, up to a maximum of 20 appointments. The data comes from all [facility]. Appointment Date/Time Appointment Type Appointme nt Facility Name Jul 26, 2024 01:00 PM AM[facility] RE[facility]AB [facility] Aug 13, 2024 07:00 AM AMBULATORY - NONE [facility] Aug 25, 2024 01:30 PM AMBULATORY - NONE [facility] Sep 23, 2024 09:30 AM [facility] October 10, 2024 07:01 [facility] October 10, 2024 07:05 AM AMBULATORY NONE [facility] Active, Pending, and Scheduled Orders This section includes a listing of several types of active, pending, and scheduled orders, including clinic medications orders, diagnostic test orders, procedure orders and consult orders; where the start date of the order is 45 days before the date of the Encounter or 45 days after the date of theEncounter. The data comes from all [facility]. Test Date/Time Test Type Test Details Facility Name Jul 26, 2024 05:13 PM Consult Order COMMUNITY CARE-PT Cons Advisory Software Engineer's Choice [facility] Social History: Smoking Status (Most current) and Tobacco Use (All prior to encounter date) This section includes the most current, and the historical, smoking and tobacco- related health factors from the [facility] where the Encounter took place. Current Smoking Status This section includes the most current smoking, or tobacco-related health factor, from the [place] facility where the Encounter took place. Date/Time Current Smoking Status Comment Facil ity Dec 31, 2023 01:30 PM VA-TOBACCO FORMER USER [facility] Tobacco Use History This section includes a history of the smoking, or tobacco-related health factors, that were collected on or before the date of the Encounter. The data comes from the [place] facility where the Encounter took place. Date/Time Smoking Status/Tobacco Use Comment F acility Dec 31, 2023 01:30 PM VA-TOBACCO QUIT 15 YRS OR MORE [facility] Dec 18, 2022 01:00 PM VA-TOBACCO FORMER USER [facility] Dec 18, 2022 01:00 PM VA-TOBACCO QUIT 15 YRS OR MORE [facility] November 05, 2021 10:00 AM VA-TOBACCO FORMER USER [facility] November 05, 2021 10:00 AM VA-TOBACCO QUIT 15 YRS OR MORE [facility] Dec 10, 2018 12:57 PM VA-TOBACCO FORMER USER [facility] Dec 10, 2018 12:57 PM VA-TOBACCO QUIT 15 YRS OR MORE [facility] Feb 25, 2018 12:23 PM VA-TOBACCO FORMER USER [facility] Feb 25, 2018 12:23 PM VA-TOBACCO QUIT 15 YRS OR MORE [facility] Apr 10, 2015 02:55 PM FORMER TOBACCO USER 7Y OR GREATE R [facility] Apr 27, 2014 10:17 AM FORMER TOBACCO USER 7Y OR GREATE R [facility] Jun 18, 2006 07:23 AM FORMER TOBACCO USER 7Y OR GREATE R [facility] Advance Directives: All historical and [...] May 23, 2003 ADVANCE DIRECTIVE [facility] Encounter Notes: All associated encounter notes This section contains the clinical notes associated to the Encounter. Date/Time Encounter Note(s) Provider Source Jun 20, 2024 12:30 PM PHARMACY CONSULT: LOCAL TITLE: PHARMACY PRIOR AUTHORIZATION APPROVED CONSULT STANDARD TITLE: PHARMACY CONSULT DATE OF NOTE: JUN 20, 2024@12:30 ENTRY DATE: JUN 20, 2024@12:30:50 AUTHOR: ANGIE BOOTHE COSIGNER: URGENCY: STATUS: COMPLETED The medical record has been reviewed with regard to this prior authorization drug request. Medication requested: CLOPIDOGREL BISULFATE 75MG TAB Medication indication: VASCULAR DISEASE Medical history relevant to this request: CAD (h/o CABG), PAD Comanaged care prescription. JLV: angiogram, angioplasty of vessels in the left leg 06/03/24. Antiplatelet therapy initiated. Duration not specified. The request is approved - The patient previously responded to a non-formulary or non-preferred agent and serious risk is associated with a change the preferred formulary alternative(s) Active Outpatient Medications (including Supplies): ALBUTEROL 90MCG (CFC-F) 200D ORAL INHL INHALE 2 PUFFS BY ACTIVE INHALATION EVERY 4 HOURS NEEDED FOR BREATHING SHAKE WELL (FOR IMMEDIATE RELIEF). AZELASTINE 137MCG/SPRAY 200D NASAL INHL SPRAY 1 PUFF IN ACTIVE EACH NOSTRIL TWICE A DAY Indication: FOR NASAL SYMPTOMS BRIEF,TRANQUILITY HIPOLITO OVERNITE MED#2115 USE BRIEF ACTIVE DIRECTED Indication: FOR INCONTINENCE CLOPIDOGREL BISULFATE 75MG TAB TAKE ONE TABLET BY MOUTH PENDING EVERY DAY Indication: TO PREVENT BLOOD CLOTS CLOPIDOGREL BISULFATE 75MG TAB TAKE ONE TABLET BY MOUTH PENDING EVERY DAY Indication: TO PREVENT BLOOD CLOTS CYCLOSPORINE 0.05% (PF) OPH EMUL 0.4ML INSTILL 1 DROP BOTH ACTIVE EYES TWICE A DAY DIALYVITE TAB TAKE 1 TABLET BY MOUTH EVERY DAY ACTIVE FLUTICAS 250/SALMETEROL 50 INHL DISK 60 INHALE 1 PUFF BY ACTIVE INHALATION TWICE A DAY TO PREVENT TROUBLE BREATHING -RINSE MOUTH AFTER USING INSULIN,ASPART(EQV-NOVLG)1 00UN/ML FLXPEN INJECT 5 UNITS ACTIVE UNDER THE SKIN BEFORE MEALS Indication: FOR DIABETES LEVOTHYROXINE NA (SYNTHROID) 200MCG TAB TAKE ONE TABLET BY ACTIVE MOUTH EVERY DAY Indication: FOR THYROID MONTELUKAST NA 10MG TAB TAKE ONE TABLET BY MOUTH EVERY DAY PENDING NEEDLE,PEN 31G,8MM USE 1 NEEDLE UNDER THE SKIN DIRECTED ACTIVE *DISPOSE OF IN A HARD-PLASTIC CONTAINER WITH A SCREW-ON LID CONTACT GARBAGE HAULER FOR PROPER DISPOSAL PANTOPRAZOLE NA 40MG EC TAB TAKE ONE TABLET BY MOUTH EVERY ACTIVE DAY ONE-HALF HOUR BEFORE EATING. PANTOPRAZOLE NA 40MG EC TAB TAKE ONE TABLET BY MOUTH EVERY PENDING DAY ONE-HALF HOUR BEFORE EATING. TIOTROPIUM 2.5MCG/ACTUAT 60D ORAL INHL INHALE TWO PUFFS BY ACTIVE INHALATION EVERY DAY Indication: FOR ASTHMA VANICREAM TOP CREAM APPLY THIN LAYER TOPICALLY EVERY DAY ACTIVE Indication: FOR DRY SKIN Non-VA CALCIUM CARBONATE TAB,CHEWABLE ONE TABLET MOUTH ACTIVE FOUR TIMES A DAY NEEDED Indication: FOR STOMACH ACID Non-VA COENZYME Q10 CAP/TAB 1 TABLET COENZYME Q10 100MG ACTIVE MOUTH EVERY DAY Non-VA FISH OIL 1000MG (500MG DHA/EPA) CAP 1200MG MOUTH ACTIVE EVERY DAY Non-VA LORATADINE 10MG TAB 10MG MOUTH EVERY DAY NEEDED ACTIVE Indication: FOR ALLERGIES Non-VA NITROGLYCERIN 0.4MG SL TAB 0.4MG UNDER THE TONGUE ACTIVE NEEDED Non-VA VITAMIN E 180MG (400UNIT) CAP 400UNIT MOUTH EVERY ACTIVE DAY Non-VA ZINC SULFATE TAB 50MG MOUTH EVERY DAY ACTIVE 23 Total Medications /es/ ANGIE BOOTHE Pharm.D. Signed: 06/20/2024 12:43 ANGIE BOOTHE [facility]
--- OUTSIDE RECORDS SUMMARY | 2024-07-26 08:00 | XMS_ITS | Encounter Summary ---
Author Name [facility] [place] Address [address] [place] [address] Care Team Providers Care Mobile Patrol Officer Name Role Phone RODRÍGUEZ MATHEWS Primary Care [...] Blanchard's Name Patient's Relationship to Policy Blanchard [facility] (WNR) MEDICARE ADVANTAGE [facility] (WNR) Jun 08, 2023 [id number] SHERYL SERRANO PATIENT MEDICARE (WNR) MEDICARE (M) RR PART A Feb 06, 2003 RR PART A [id number] [phone] JANETTERUDDY GranadoARD PATIENT MEDICARE (WNR) MEDICARE (M) RR PART B Feb 06, 2003 RR PART B [id number] ZACHRUDDYSHERYL PATIENT MEDICARE PART D (WNR) MEDICARE (M) PART D Jun 08, 2022 PART D [id number] SHERYL SERRANO PATIENT [employer] MEDICARE SECONDARY (NO B EXC) UPREH S Jun 08, 2009 [id number] SHERYL SERRANO PATIENT Selected Encounter This section includes the information on record at [place] for the Encounter. Date/Time Encounter Type Encounter Description Reason Provider Source Jul 26, 2024 01:00 PM SELF CARE MNGMENT TRAINING PHYSICAL THERAPY ICD-10-CM R26.89 Other abnormalities of gait and mobility PROSPER HAYES Tamra Alfonso IHE Encounter Template Text not used by [place] Assessments - Encounter Diagnoses This section includes the primary and secondary diagnoses documented for the Encounter. Date/Time Primary/Secondary Diagnosis Diagnosis Name Provider Source Jul 26, 2024 03:22 PM PRIMARY Other abnormalities of gait and mobility FREDDYPROSPER [facility] Plan of Treatment: Future Appointments (+ 6 months) and Future Tests (+/- 45 days) The Plan of Treatment section includes future care activities for the patient from all [place] [facility]. This section includes future appointments and future orders which are active, pending or scheduled. Future Appointments This section includes appointments that were scheduled to occur 6 months from the date of the Encounter, up to a maximum of 20 appointments. The data comes from all [facility]. Appointment Date/Time Appointment Type Appointme nt Facility Name Aug 13, 2024 07:00 AM AM[place]ORY [place] [facility] Aug 25, 2024 01:30 PM AM[place]ORY [place] [facility] Sep 23, 2024 09:30 AM AMBULATORY - REHAB MEDICIN E [facility] October 10, 2024 07:01 AM [place]ORY - [place] [facility] October 10, 2024 07:05 [facility] Jan 05, 2025 02:00 PM AMBULATORY - MEDICINE [facility] Active, Pending, and Scheduled Orders This section includes a listing of several types of active, pending, and scheduled orders, including clinic medications orders, diagnostic test orders, procedure orders and consult orders; where the start date of the order is 45 days before the date of the Encounter or 45 days after the date of theEncounter. The data comes from all [facility]. Test Date/Time Test Type Test Details Facility Name Jul 26, 2024 05:13 PM Consult Order COMMUNITY CARE-PT Cons Manager Application Development's Choice [facility] Social History: Smoking Status [...] 31, 2023 01:30 PM VA-TOBACCO FORMER USER [facility] Tobacco Use History This section includes a history of the smoking, or tobacco-related health factors, that were collected on or before the date of the Encounter. The data comes from the [place] facility where the Encounter took place. Date/Time Smoking Status/Tobacco Use Comment F acility Dec 31, 2023 01:30 PM VA-TOBACCO QUIT 15 YRS OR MORE [facility] Dec 18, 2022 01:00 PM VA-TOBACCO FORMER USER [facility] Dec 18, 2022 01:00 PM VA-TOBACCO QUIT 15 YRS OR MORE [facility] November 05, 2021 10:00 AM VA-TOBACCO FORMER USER [facility] November 05, 2021 10:00 AM VA-TOBACCO QUIT 15 YRS OR MORE [facility] Dec 10, 2018 12:57 PM VA-TOBACCO FORMER USER [facility] Dec 10, 2018 12:57 PM VA-TOBACCO QUIT 15 YRS OR MORE [facility] Feb 25, 2018 12:23 PM VA-TOBACCO FORMER USER [facility] Feb 25, 2018 12:23 PM VA-TOBACCO QUIT 15 YRS OR MORE [facility] Apr 10, 2015 02:55 PM FORMER TOBACCO USER 7Y OR GREATE R [facility] Apr 27, 2014 10:17 AM FORMER TOBACCO USER 7Y OR GREATE R [facility] Jun 18, 2006 07:23 AM FORMER TOBACCO USER 7Y OR GREATE R [facility] Advance Directives: All historical [...] The data comes from all [facility]. Date Advance Directives Provider Source May 23, 2003 ADVANCE DIRECTIVE KINGS ANDREW [facility] Encounter Notes: All associated encounter notes This section contains the clinical notes associated to the Encounter. Date/Time Encounter Note(s) Provider Source Jul 26, 2024 01:00 PM PHYSICAL THERAPY NOTE: LOCAL TITLE: PT-PROGRESS NOTE STANDARD TITLE: PHYSICAL THERAPY NOTE DATE OF NOTE: JUL 26, 2024@13:00 ENTRY DATE: JUL 26, 2024@07:28:37 AUTHOR: SUZETTE HAYES COSIGNER: URGENCY: STATUS: COMPLETED PT tx: Physical Performance test x 30 min, Self-care x 30 min PT dx: Other abnormalities of gait/mobility (neuropathy) Evaluation Date: Mar Suicide Screen Clinical Reminder Due: No # of VISITS: 4 # of CX/NS: 0 SUBJECTIVE: Relevant PMH: Hypothyroidism, Dyslipidemia, Diabetic neuropathy, Essential hypertension, Psoriasis Nos, Diabetic Retinopathy Associated with DMT2, Adenoma of large intestine, Coronary arteriosclerosis - s/p [id number] at [facility] in 07/15, Diabetic renal disease - 10/2018: started hemodialysis @ [facility] in [place], Hyperparathyroidism due to renal insufficiency, Chronic cough, Oropharyngeal dysphagia - 2013 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 Pt has not been seen since 05/17/24; pt's notes this is due to multiple medical issues including getting pneumonia and being hospitalized for this, then having a left great toe infection resulting in amputation and now dealing with infection post-op. They are asking about replacement MWC as his is worn and the arms have sharp spots. Pt himself is continuing with dialysis - has had some cardiac medications changed to try and reduce fatigue with dialysis. Feels this has been helpful. Pt today continues to report having fatigue. Fall History: Denies any falls Home Environment: [...] for dialysis in L UE) Initial BP: 145/61 mmHg Heart Rate: 74 bpm O2 Sats: 94% Parallel bars: GAIT: Ambulates 10 ft with B UE on // bars and CGA; fatigued with ambulation and BP drops to 115/60. After 1 min rest returns to baseline. Trialed walkasins; pt again able to ambulate 10 ft with B UE on // bars and still required CGA. No observable change in gait with use of Walkasins. (BP with same response) BALANCE: Stands for 10s c/ UE support on // bars *With Walkasins, no change in balance with patient needing min A of racebook writer to correct posterior LOB. End of session: BP - 130/61 mmHg PT INTERVENTIONS: risks/benefits reviewed and verbal consent obtained for interventions Physical Performance testing: -Put on Walkasins - Large; pt able to feel vibration. -Completed above outcome measures with Walkasins donned. -Frequent rest breaks required d/t fatigue and monitoring BP. Self-care: -Discussed Walkasins; given comorbidities appears that Walkasins will not be helpful at this time. Discussed options to address endurance/balance concerns including consideration of bout of CC PT. Given that patient gets dialysis 3x/wk, has cardiac concerns that impact BP, recently had PNA and now has L great toe amputation; he has very low tolerance for PT sessions when driving to [facility] and this likely limits rehab potential. Recommending bout of CC PT due to difficulty in traveling and anticipated frequency of PT visits in setting of above mentioned medical comorbidities. Could consider Walkasins again in the future pending this. -They are requesting replacement MWC; in 2014 received a 20x18. Due to wear on device, recommended new one. Placed PROS consult for 18x18 with cushion. Pt to leaf size picker tomorrow. -Discussed BP: encouraged continued monitoring and adhering to recommendations from cardiac/dialysis MDs. -Encouraged continued use of ADs to reduce falls risk. Response to Treatment: Pt verbalizes understanding of [...] of falling with functional mobility. Pt returns to PT after a gap in care (last seen 05/17/24) due to hospitalization for Pneumonia and then left great toe amputation as the result of infection. Is currently working with MD for infection management and remains on antibiotics. Discussed Walkasins in light of this and trialed today. Given comorbidities and very limited tolerance for activities in PT session, appears that Walkasins will not be helpful at this time. Discussed options to address endurance/balance concerns including consideration of bout of CC PT. Given that the patient gets dialysis 3x/wk, has cardiac concerns that impact BP response, recently had Pneumonia and now has L great toe amputation; he has very low tolerance for PT sessions when driving to [facility] and this likely limits rehab potential. Recommending bout of CC PT due to difficulty in traveling and anticipated frequency of PT visits in setting of above mentioned medical comorbidities. Following this, if pt wanted to trial Walkasins again when he is better able to tolerate testing, then he can call to return to [facility] at that time. If pt unable to make notable improvements with endurance, activity tolerance and balance with CC PT then would recommend maintenance with home exercise program. Walkasins would likely not make a difference in that case and would not recommend. Pt and verbalize understanding to this and agreement with POC. REHAB POTENTIAL: Fair CLINICAL PRESENTATION: stable PLAN: Open for f/u as needed - Next Session: if pt returns -Monitor BP -Continue Walkasins trial - cardiac/renal PMH and impact on mobility -Continue to monitor and refer as appropriate DME: MWC - PROS consult 07/26 Patient Education on Treatment Plan: PT role, POC, rehab expectations. Patient indicated readiness to learn, verbalizes understanding, agreement and satisfaction with the treatment plan. Denies further questions. /katey/ SUZETTE HAYES DPT PHYSICAL THERAPIST Signed: 07/26/2024 15:22 SUZETTE HAYES [facility]
--- OUTSIDE RECORDS SUMMARY | 2024-10-03 06:55 | XMS_ITS | Encounter Summary ---
Author Name [facility] [place] Organization [place] Address [address] [place] [address] Care Team Providers Care Brick Tosser Name Role Phone RODRÍGUEZ MATHEWS Primary Care [...] Blanchard's Name Patient's Relationship to Policy Blanchard [facility] (WNR) MEDICARE ADVANTAGE [facility] (WNR) Jun 08, 2023 [id number] SHERYL SERRANO PATIENT MEDICARE (WNR) MEDICARE (M) RR PART A Feb 06, 2003 RR PART A [id number] SHERYL SERRANO PATIENT MEDICARE (WNR) MEDICARE (M) RR PART B Feb 06, 2003 RR PART B [id number] SHERYL SERRANO PATIENT MEDICARE PART D (WNR) MEDICARE (M) PART D Jun 08, 2022 PART D [id number] SHERYL SERRANO PATIENT [employer] MEDICARE SECONDARY (NO B EXC) UPREH S Jun 08, 2009 [id number] SHERYL SERRANO PATIENT Selected Encounter This section includes the information on record at [place] for the Encounter. Date/Time Encounter Type Encounter Description Reason Pro vider Source Oct 03, 2024 11:55 AM Outpatient Encounter COMMUNITY CARE CONSULT IHE Encounter Template Text not used by [place] [...] 20 appointments. The data comes from all [facility]. Appointment Date/Time Appointment Type Appointme nt Facility Name October 10, 2024 07:01 AM AMBULATORY - NONE [facility] October 10, 2024 07:05 AM AMBULATORY - NONE [facility] Jan 05, 2025 02:00 PM [facility] Jan 26, 2025 01:00 PM AMBULATORY - NONE [facility] Active, Pending, and Scheduled Orders This section includes a listing of several types of active, pending, and scheduled orders, including clinic medications orders, diagnostic test orders, procedure orders and consult orders; where the start date of the order is 45 days before the date of the Encounter or 45 days after the date of theEncounter. The data comes from all [facility]. Test Date/Time Test Type Test Details Facility Name Oct 03, 2024 01:03 PM Consult Order COMMUNITY CARE-OPHTHALMOLOGY Cons Shot Polisher And Inspector's [facility] October 10, 2024 08:31 AM Consult Order COMMUNITY CARE-HEMODIALYSIS Cons Shot Polisher And Inspector's [facility] October 10, 2024 08:32 AM Consult Order COMMUNITY [facility]-NEPHROLOGY DIALYSIS OVERSIGHT [facility] Social History: Smoking Status (Most current) and [...] 31, 2023 01:30 PM VA-TOBACCO FORMER USER [facility] Tobacco Use History This section includes a history of the smoking, or tobacco-related health factors, that were collected on or before the date of the Encounter. The data comes from the [place] facility where the Encounter took place. Date/Time Smoking Status/Tobacco Use Comment F acility Dec 31, 2023 01:30 PM VA-TOBACCO QUIT 15 YRS OR MORE [facility] Dec 18, 2022 01:00 PM VA-TOBACCO FORMER USER [facility] Dec 18, 2022 01:00 PM VA-TOBACCO QUIT 15 YRS OR MORE [facility] November 05, 2021 10:00 AM VA-TOBACCO FORMER USER [facility] November 05, 2021 10:00 AM VA-TOBACCO QUIT 15 YRS OR MORE [facility] Dec 10, 2018 12:57 PM VA-TOBACCO FORMER USER [facility] Dec 10, 2018 12:57 PM VA-TOBACCO QUIT 15 YRS OR MORE [facility] Feb 25, 2018 12:23 PM VA-TOBACCO FORMER USER [facility] Feb 25, 2018 12:23 PM VA-TOBACCO QUIT 15 YRS OR MORE [facility] Apr 10, 2015 02:55 PM FORMER TOBACCO USER 7Y OR GREATE R [facility] Apr 27, 2014 10:17 AM FORMER TOBACCO USER 7Y OR GREATE R [facility] Jun 18, 2006 07:23 AM FORMER TOBACCO USER 7Y OR GREATE R [facility] Advance Directives: All historical and current Section Date Range: From patient's date of to the date document was created. This section includes ALL of a patient's completed or amended [place] Advance and Rescinded Directives. The entries below indicate that a directive exists for the patient, but an actual copy is not included with this document. The data comes from all [facility]. Date Advance Directives Provider Source May 23, 2003 ADVANCE DIRECTIVE K[facility] ANDREW [facility] Encounter Notes: All associated encounter notes This section contains the clinical notes associated to the Encounter. Date/Time Encounter Note(s) Provider Source Oct 03, 2024 11:55 AM PHARMACY NOTE: LOCAL TITLE: PHARMACY NON VA CARE MEDICATIONS STANDARD TITLE: PHARMACY NOTE DATE OF NOTE: OCT 03, 2024@11:55 ENTRY DATE: OCT 03, 2024@11:55:13 AUTHOR: AVRIL REYES COSIGNER: URGENCY: STATUS: COMPLETED The [facility] outpatient pharmacy has received a prescription OR a request for a renewal of a prescription written by a NON-VA (community) provider. This does not have an existing Community Care consult OR does not have a prior Community Care Consult covering this prescription. A new consult is required to complete this request. Regarding Patient: SHERYL SERRANO Date of : Feb [X] Medication refill [ ] New prescription Community Care consult service requested: Specialty: OPHTHALMOLOGY , Medication: CYCLOSPORINE 0.05% (PF) OPH EMUL 0.4ML Previous VA consult number and exp date: [phone], EXP 03/25/2024 [facility] Outpatient Pharmacy requests CC to please follow up with community vendor as appropriate. Provider Name: MATHEW WALKER Thank you. [place] Outpatient [facility], Community Care [phone] /katey/ AVRIL REYES ink technician Signed: 10/03/2024 11:57 Receipt Acknowledged By: 10/03/2024 12:56 /katey/ JOVAN WILL APRN, HOUSING PROJECT MANAGER FAMILY NURSE PRACTITIONER AVRIL REYES [facility]
--- OUTSIDE RECORDS SUMMARY | 2024-10-31 04:55 | XMS_ITS | Encounter Summary ---
Author Name Department [place] Organization [place] Address [address] [place] [address] Care Team Providers Care De Icer Finisher Name Role Phone URVASHI MATHEWS Primary Care [...] Blanchard's Name Patient's Relationship to Policy Blanchard [facility] (WNR) MEDICARE ADVANTAGE [facility] (WNR) Jun 08, 2023 [id number] SHERYL SERRANO PATIENT MEDICARE (WNR) MEDICARE (M) RR PART A Feb 06, 2003 RR PART A [id number] JANETTERUDDY GranadoARD PATIENT MEDICARE (WNR) MEDICARE (M) RR PART B Feb 06, 2003 RR PART B [id number] SHERYL SERRANO PATIENT MEDICARE PART D (WNR) MEDICARE (M) PART D Jun 08, 2022 PART D [id number] SHERYL SERRANO PATIENT [employer] MEDICARE SECONDARY (NO B EXC) UPREH S Jun 08, 2009 [id number] SHERYL SERRANO PATIENT Selected Encounter This section includes the information on record at [place] for the Encounter. Date/Time Encounter Type Encounter Description Reason Pro vider Source October 31, 2024 09:55 AM Outpatient Encounter TELEPHONE TRIAGE IHE Encounter Template Text not used by [place] Plan of Treatment: Future Appointments (+ 6 months) and Future Tests (+/- 45 days) The Plan of Treatment section includes future care activities for the [facility] [place] [facility] This section includes future appointments and future orders which are active, pending or scheduled. Future Appointments This section includes appointments that were scheduled to occur 6 months from the date of the Encounter, up to a maximum of 20 appointments. The data comes from all [place] treatment [facility]. Appointment Date/Time Appointment Type Appointme nt Facility Name Jan 26, 2025 01:00 PM AMBULATORY - NONE [facility] Active, Pending, and Scheduled Orders This section includes a listing of several types of active, pending, and scheduled orders, including clinic medications orders, diagnostic test orders, procedure orders and consult orders; where the start date of the order is 45 days before the date of the Encounter or 45 days after the date of theEncounter. The data comes from all [facility]. Test Date/Time Test Type Test Details Facility Name Oct 03, 2024 01:03 PM Consult Order COMMUNITY CARE-OPHTHALMOLOGY [facility] Course Instructors [facility] October 10, 2024 08:31 AM Consult Order COMMUNITY CARE-HEMODIALYSIS [facility] October 10, 2024 08:32 AM Consult Order COMMUNITY [facility]-NEPHROLOGY DIALYSIS OVERSIGHT [facility] Social History: Smoking Status (Most current) and [...] 31, 2023 01:30 PM VA-TOBACCO FORMER USER [facility] Tobacco Use History This section includes a history of the smoking, or tobacco-related health factors, that were collected on or before the date of the Encounter. The data comes from the [place] facility where the Encounter took place. Date/Time Smoking Status/Tobacco Use Comment F acility Dec 31, 2023 01:30 PM VA-TOBACCO QUIT 15 YRS OR MORE [facility] Dec 18, 2022 01:00 PM VA-TOBACCO FORMER USER [facility] Dec 18, 2022 01:00 PM VA-TOBACCO QUIT 15 YRS OR MORE [facility] November 05, 2021 10:00 AM VA-TOBACCO FORMER USER [facility] November 05, 2021 10:00 AM VA-TOBACCO QUIT 15 YRS OR MORE [facility] Dec 10, 2018 12:57 PM VA-TOBACCO FORMER USER [facility] Dec 10, 2018 12:57 PM VA-TOBACCO QUIT 15 YRS OR MORE [facility] Feb 25, 2018 12:23 PM VA-TOBACCO FORMER USER [facility] Feb 25, 2018 12:23 PM VA-TOBACCO QUIT 15 YRS OR MORE [facility] Apr 10, 2015 02:55 PM FORMER TOBACCO USER 7Y OR GREATE R [facility] Apr 27, 2014 10:17 AM FORMER TOBACCO USER 7Y OR GREATE R [facility] Jun 18, 2006 07:23 AM FORMER TOBACCO USER 7Y OR GREATE R [facility] Advance Directives: All historical [...] 23, 2003 ADVANCE DIRECTIVE [facility] Encounter Notes: All associated encounter notes This section contains the clinical notes associated to the Encounter. Date/Time Encounter Note(s) Provider Source October 31, 2024 09:55 AM PHARMACY NOTE: LOCAL TITLE: PHARMACY CONTACT CENTER PROGRESS NOTE STANDARD TITLE: PHARMACY NOTE DATE OF NOTE: OCTOBER 31, 2024@09:55 ENTRY DATE: OCTOBER 31, 2024@09:55:50 AUTHOR: CASANDRA FERREIRA EXP COSIGNER: URGENCY: STATUS: COMPLETED MEDICATION RENEW [id number] SUBSTANCE: Who is contacting the [place]? CAREGIVER,NORRIS Contact via: Phone Requesting renewal of medication: PRAVASTATIN NA 40MG TAB [id number] 06/06/2024 06/06/2023 05/24/2024 0 URVASHI MATHEWS 2.943 TAKE ONE TABLET BY MOUTH AT BEDTIME FOR CHOLESTEROL Please send medication: Mail Disposition: Notification forwarded to provider for review of renewal request. This note was created by a [address] [facility] employee. Replies to this message are not monitored. Please do not reply back to the author of this message. If not renewing a medication, please have your clinic contact patient with reason. Thank you. /katey/ CASANDRA FERREIRA [facility]. VISN 10 PCC PHARMACIST Signed: 10/31/2024 09:56 Receipt Acknowledged By: 11/01/2024 12:49 /katey/ Urvashi Mathews MD Physician CASANDRA FERREIRA [facility]
--- OUTSIDE RECORDS SUMMARY | 2024-11-10 05:18 | XMS_ITS | Encounter Summary ---
Author Name Department of Vetera Affairs ([place]) Organization Department of Veter[place] Address [address] [place] [address] Care Team Providers Care Director E Learning Name Role Phone RODRÍGUEZ MATHEWS Primary Care [...] Blanchard's Name Patient's Relationship to Policy Blanchard [facility] (WNR) MEDICARE ADVANTAGE [facility] (WNR) Jun 08, 2023 [id number] SHERYL SERRANO PATIENT MEDICARE (WNR) MEDICARE (M) RR PART A Feb 06, 2003 RR PART A [id number] SHERYL SERRANO PATIENT MEDICARE (WNR) MEDICARE (M) RR PART B Feb 06, 2003 RR PART B [id number] SHERYL SERRANO PATIENT MEDICARE PART D (WNR) MEDICARE (M) PART D Jun 08, 2022 PART D [id number] SHERYL SERRANO PATIENT [employer] MEDICARE SECONDARY (NO B EXC) UPREH S Jun 08, 2009 [id number] SHERYL SERRANO PATIENT Selected Encounter This section includes the information on record at [place] for the Encounter. Date/Time Encounter Type Encounter Description Reason Pro vider Source Nov 10, 2024 10:18 AM Outpatient Encounter COMMUNITY CARE CONSULT IHE [...] Appointment Type Appointme nt Facility Name Jan 05, 2025 02:00 PM AMBULATORY - MEDICINE DEMETRI[facility]arissa SCHAFER [facility] Jan 26, 2025 01:00 PM AMBULATORY - NONE [facility] Active, Pending, and Scheduled Orders This section includes a listing of several types of active, pending, and scheduled orders, including clinic medications orders, diagnostic test orders, procedure orders and consult orders; where the start date of the order is 45 days before the date of the Encounter or 45 days after the date of theEncounter. The data comes from all [place] treatment facilities. Test Date/Time Test Type Test Details Facility Name Oct 03, 2024 01:03 PM Consult Order COMMUNITY CARE-OPHTHALMOLOGY [facility] Humidifier Attendant's [facility] October 10, 2024 08:31 AM Consult Order COMMUNITY CARE-HEMODIALYSIS [facility] October 10, 2024 08:32 AM Consult Order COMMUNITY [facility]-NEPHROLOGY DIALYSIS OVERSIGHT [facility] Social History: Smoking Status (Most current) [...] 31, 2023 01:30 PM VA-TOBACCO FORMER USER [facility] Tobacco Use History This section includes a history of the smoking, or tobacco-related health factors, that were collected on or before the date of the Encounter. The data comes from the [place] facility where the Encounter took place. Date/Time Smoking Status/Tobacco Use Comment F acility Dec 31, 2023 01:30 PM VA-TOBACCO QUIT 15 YRS OR MORE [facility] Dec 18, 2022 01:00 PM VA-TOBACCO FORMER USER [facility] Dec 18, 2022 01:00 PM VA-TOBACCO QUIT 15 YRS OR MORE [facility] November 05, 2021 10:00 AM VA-TOBACCO FORMER USER [facility] November 05, 2021 10:00 AM VA-TOBACCO QUIT 15 YRS OR MORE [facility] Dec 10, 2018 12:57 PM VA-TOBACCO FORMER USER [facility] Dec 10, 2018 12:57 PM VA-TOBACCO QUIT 15 YRS OR MORE [facility] Feb 25, 2018 12:23 PM VA-TOBACCO FORMER USER [facility] Feb 25, 2018 12:23 PM VA-TOBACCO QUIT 15 YRS OR MORE [facility] Apr 10, 2015 02:55 PM FORMER TOBACCO USER 7Y OR GREATE R [facility] Apr 27, 2014 10:17 AM FORMER TOBACCO USER 7Y OR GREATE R [facility] Jun 18, 2006 07:23 AM FORMER TOBACCO USER 7Y OR GREATE R [facility] Advance Directives: All historical and current Section Date Range: From patient's date of to the date document was created. This section includes ALL of a patient's completed or amended [place] Advance and Rescinded Directives. The entries below indicate that a directive exists for the patient, but an actual copy is not included with this document. The data comes from all [facility]. Date Advance Directives Provider Source May 23, 2003 ADVANCE DIRECTIVE [facility] Encounter Notes: All associated encounter notes This section contains the clinical notes associated to the Encounter. Date/Time Encounter Note(s) Provider Source Nov 10, 2024 10:18 AM PHARMACY NOTE: LOCAL TITLE: PHARMACY NON VA CARE MEDICATIONS STANDARD TITLE: PHARMACY NOTE DATE OF NOTE: NOV 10, 2024@10:18 ENTRY DATE: NOV 10, 2024@10:18:21 AUTHOR: MIRACLE CORDERO EXP COSIGNER: URGENCY: STATUS: COMPLETED PHARMACY NON [place] CARE MEDICATIONS Has ADDENDA [facility] RECEIVED electronic prescription(s) (eRX(s))from NON- VA Provider: EMMY JACKSON Date eRX received: NOV 10, 2024 The outside (NON-VA) provider is not authorized to write for prescription(s) through [place] pharmacy at this time. Prescription request REDIRECTED via FAX to [facility] department eRx Prescription Information: eRx Reference #: [id number] eRx Drug: efinaconazole 10 % topical solution with applicator eRX Written Date: NOV 09, 2024 Issue Date: Qty: 8 Days Supply: Refills: 11 eRx Sig: Apply solution daily for 48 weeks. /katey/ MIRACLE CORDERO PharmD CLINICAL PHARMACIST Signed: 11/10/2024 10:19 11/10/2024 ADDENDUM STATUS: COMPLETED Faxed local clinic regarding a formulary issue. /katey/ ESTEBAN TORRES LPN Co-Developer Relations Manager Signed: 11/10/2024 13:35 MIRACLE CORDERO [facility]
--- OUTSIDE RECORDS SUMMARY | 2024-12-06 08:36 | XMS_ITS | Continuity of Care Document ---
Author Name [facility] Organization [facility] Care Team Providers Care Services Manager Name Role Phone [facility] Unavailable Unavailable Problems Combined list of problems from Department of Defense and Veterans 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 It does not include entries that were removed or entered in error. Problem Status Onset Date Problem Type Date of Resolution Comments Source Adenoma of large intestine Active Condition Jan 17, 2005 Entered By: TOMMY SARMIENTO Comment: colonoscopy and polypectomy 12/10, tubular adenoma at [facility] Cataract, Senile, Unsp Active Condition [facility] Chronic cough Active Condition [facility] Chronic obstructive lung disease Active Condition [facility] Chronic rhinitis Active Condition [facility] Coronary arteriosclerosis Active Condition Nov 10 7 Entered By: LIZZETTE WEI Comment: s/p [id number] at [facility] in 07/15 [facility] Diabetes mellitus Active Condition [facility] Diabetic neuropathy Active Condition [facility] Diabetic renal disease Active Condition Dec 02, 2018 Entered By: CARLOS DALTON Comment: 10/2018: started hemodialysis @ [facility] in [facility] 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 [facility] Dyslipidemia Active Condition [facility] End-stage renal disease Active Condition [facility] Essential hypertension Active Condition [facility] Exposure to potentially hazardous substance Active Condition Dec 18, 2022 Entered By: CORRINE MATHEWS Comment: Asbestos [facility] Ganglion of wrist Active Condition [facility] Gastroesophageal reflux disease without esophagitis Active Condition [facility] Hemorrhoid Active Condition [facility] Hyperparathyroidism due to renal insufficiency Active Condition [facility] Hypothyroidism Active Condition [facility] Incontinence of feces Active Condition [facility] Indwelling catheter inserted Active Condition [facility] Obstructive Sleep Apnea of Adult (SCT [id number]) Active Condition October 28, 2022 Entered By: KINGS ROCHA Comment: APAP: 10-20, Ramp: 5x10 min, [place] [facility] Oropharyngeal dysphagia Active Condition Dec 14, 2022 Entered By: CORRINE MATHEWS Comment: 2013 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 Cough (ICD-9-CM 786.2) Inactive Condition 03/23/2013 [facility] Diabetic Foot Ulcer (ICD-9-CM 250.80/707.8) Inactive Condition 03/23/2013 [facility] Diagnosis: ICD-10-CM R53.1 Weakness Active Diagnosis [facility] Diagnosis: ICD-10-CM R26.89 Other abnormalities of gait and mobility Active Diagnosis [facility] Diagnosis: ICD-10-CM I25.10 Athscl heart disease of [place] coronary artery w/o ang pctrs Active Diagnosis [facility] Diagnosis: ICD-10-CM M79.646 Pain in unspecified finger(s) Active Diagnosis [facility] Diagnosis: ICD-10-CM H90.3 Sensorineural hearing loss, bilateral Active Diagnosis [facility] Diagnosis: ICD-10-CM Z01.118 Encntr for exam of ears and hearing w oth abnormal findings Active Diagnosis [facility] Diagnosis: ICD-10-CM H04.129 Dry eye syndrome of unspecified lacrimal gland Active Diagnosis [facility] Diagnosis: ICD-10-CM Z46.1 Encounter for fitting and adjustment of hearing aid Active Diagnosis [facility] Medications Combined list of outpatient medications from [...] IMMEDIAT E RELIEF). RESPIR ATORY (INHAL ATION) 11/09/2024 [id number] 5 CASANDRA DALTON 2023 2 [facility] AZELASTINE HCL 137MCG/SPRA Y INHL,NASAL, 30ML SPRAY 1 PUFF IN EACH NOSTRIL TWICE A DAY FOR NASAL SYMPTOMS NASAL ACTIVE 12/31/2024 [id number] 5 RODRÍGUEZ MATHEWS 2023 2 [facility] CALCIUM CARBONATE TAB,CHEWABL E CHEW ONE TABLET BY MOUTH FOUR TIMES A DAY NEEDED ORAL ACTIVE RODRÍGUEZ MATHEWS 2022 [facility] CLOPIDOGREL BISULFATE 75MG TAB TAKE ONE TABLET BY MOUTH EVERY DAY TO PREVENT BLOOD CLOTS LENGTH OF TREATMEN T: INDJAI TE, CO-MANAG ED CARE PRESCRIP TION ORAL ACTIVE 06/16/2025 [id number] 5 RODRÍGUEZ MATHEWS 2024 90 [facility] COENZYME Q10 CAP/TAB TAKE ONE TABLET BY MOUTH EVERY DAY ORAL ACTIVE CASANDRA DALTON 2012 [facility] CYCLOSPORIN E 0.05% (PF) EMULSION,OP H,0.4ML INSTILL 1 DROP BOTH EYES TWICE A DAY OPHTHA LMIC ACTIVE 10/05/2025 [id number] 5 FB-PURFEE RST,MATHEW OD 2024 60 [facility] CYCLOSPORIN E 0.05% (PF) EMULSION,OP H,0.4ML INSTILL 1 DROP BOTH EYES TWICE A DAY OPHTHA LMIC 08/10/2024 [id number] 4 FB-PURFEE RST,MATHEW OD 2023 60 [facility] DEXTROMETHO RPHAN HBR 10MG/GUAIFE NESIN 100MG/5ML (AF & SF) LIQUID TAKE 1 TEASPOON FUL BY MOUTH EVERY 4 HOURS NEEDED FOR COUGH AND CONGESTI ON ORAL ACTIVE 07/01/2025 [id number] 5 RODRÍGUEZ MATHEWS 2024 120 [facility] DEXTROMETHO RPHAN HBR 10MG/GUAIFE NESIN 100MG/5ML (AF & SF) LIQUID TAKE 1 TEASPOON FUL BY MOUTH EVERY 4 HOURS NEEDED FOR COUGH AND CONGESTI ON ORAL DISCONT INUED 03/09/2024 [id number] 4 RODRÍGUEZ MATHEWS 2022 120 [facility] DIALYVITE TAB TAKE 1 TABLET BY MOUTH EVERY DAY ORAL 07/02/2024 [id number] 5 RODRÍGUEZ MATHEWS 2023 100 [facility] FLUTICASONE 250MCG/SALM ETEROL 50MCG INHL,ORAL,D ISKUS,60 INHALE 1 PUFF BY INHALATI ON TWICE A DAY TO PREVENT TROUBLE BREATHIN G -RINSE MOUTH AFTER USING RESPIR ATORY (INHAL ATION) ACTIVE 12/28/2024 [id number] 5 RODRÍGUEZ MATHEWS 2023 3 [facility] FLUTICASONE 250MCG/SALM ETEROL 50MCG INHL,ORAL,D ISKUS,60 INHALE 1 PUFF BY INHALATI ON TWICE A DAY TO PREVENT TROUBLE BREATHIN G -RINSE MOUTH AFTER USING RESPIR ATORY (INHAL ATION) DISCONT INUED 09/23/2023 [id number] 4 RODRÍGUEZ MATHEWS 2022 3 [facility] INSULIN,ASP ART,HUMAN (EQV-NOVOLO G) 100 UNIT/ML,FLE XPEN,3ML INJECT 5 UNITS UNDER THE SKIN BEFORE MEALS FOR DIABETES SUBCUT ANEOUS 10/26/2024 [id number] 4 RODRÍGUEZ MATHEWS 2023 5 [facility] INSULIN,GLA RGINE-YFGN 100UNIT/ML INJ PEN,3ML INJECT 18 UNITS UNDER THE SKIN EVERY DAY FOR DIABETES DISCAR D PEN 28 DAYS AFTER INITIAL USE SUBCUT ANEOUS 06/09/2024 [id number] 4 RODRÍGUEZ MATHEWS 2023 5 [facility] LEVOTHYROXI NE NA 200MCG TAB (SYNTHROID) TAKE ONE TABLET BY MOUTH EVERY DAY FOR THYROID ORAL ACTIVE 12/28/2024 [id number] 5 RODRÍGUEZ MATHEWS 2023 90 [place] [facility] LEVOTHYROXI NE NA 200MCG TAB (SYNTHROID) TAKE ONE TABLET BY MOUTH EVERY DAY FOR THYROID ORAL DISCONT INUED 01/13/2024 [id number] 4 RODRÍGUEZ MATHEWS 2022 90 [facility] LORATADINE 10MG TAB TAKE ONE TABLET BY MOUTH EVERY DAY NEEDED ORAL ACTIVE RODRÍGUEZ MATHEWS 2022 [place] [facility] MARINE LIPID (FISH OIL) CAP,ORAL TAKE 1200MG BY MOUTH EVERY DAY ORAL ACTIVE CASANDRA DALTON 2010 [facility] MIDODRINE HCL 10MG TAB TAKE ONE TABLET BY MOUTH DIRECTED - TAKE 1 TABLET BEFORE DIALYSIS AND 1 TABLET AFTER DIALYSIS , NEEDED FOR HYPOTENS ION OTHER DAYS ORAL ACTIVE 06/21/2025 [id number] 5 Stefany TRAN 2024 90 [facility] MONTELUKAST NA 10MG TAB TAKE ONE TABLET BY MOUTH EVERY DAY ORAL ACTIVE 06/21/2025 [id number] 5 CASANDRA DALTON 2024 90 [facility] MONTELUKAST NA 10MG TAB TAKE ONE TABLET BY MOUTH EVERY DAY [facility] 05/08/2024 [id number] 4 CASANDRA DALTON 2022 90 [facility] NITROGLYCER IN 0.4MG TAB,SUBLING UAL DISSOLVE ONE TABLET UNDER THE TONGUE PRN SUBLIN GUAL ACTIVE CASANDRA DALTON 2010 [facility] PANTOPRAZOL E NA 40MG TAB,EC TAKE ONE TABLET BY MOUTH EVERY DAY ONE-HALF HOUR BEFORE EATING. ORAL ACTIVE 06/21/2025 [id number] 5 CASNADRA DALTON 2024 90 [place] [facility] PANTOPRAZOL E NA 40MG TAB,EC TAKE ONE TABLET BY MOUTH EVERY DAY ONE-HALF HOUR BEFORE EATING. [facility]AL [facility] 07/02/2024 [id number] 4 CASANDRA DALTON 2023 90 [facility] PRAVASTATIN NA 40MG TAB TAKE ONE TABLET BY MOUTH AT BEDTIME FOR CHOLESTE ROL ORAL ACTIVE 11/02/2025 [id number] 5 RODRÍGUEZ MATHEWS 2024 90 [place] [facility] PRAVASTATIN NA 40MG TAB TAKE ONE TABLET BY MOUTH AT BEDTIME FOR CHOLESTE ROL ORAL 06/06/2024 [id number] 4 RODRÍGUEZ MATHEWS 2023 90 [facility] SULFAMETHOX AZOLE 800MG/TRIME THOPRIM 160MG TAB TAKE 1 TABLET BY MOUTH TWICE A DAY ORAL 01/30/2024 [id number] 4 RODRÍGUEZ MATHEWS 2023 20 [facility] TIOTROPIUM 2.5MCG/ACTU AT INHL,ORAL,6 0D,4GM INHALE TWO PUFFS BY INHALATI ON EVERY DAY FOR ASTHMA RESPIR ATORY (INHAL ATION) DISCONT INUED 04/01/2025 [id number] 4 [place], [place] NA 2023 1 [facility] TIOTROPIUM 2.5MCG/ACTU AT INHL,ORAL,6 0D,4GM INHALE TWO PUFFS BY INHALATI ON EVERY DAY FOR ASTHMA RESPIR ATORY (INHAL ATION) DISCONT INUED 08/26/2024 [id number] 4 [place], [place] NA 2023 1 [facility] TIOTROPIUM 2.5MCG/ACTU AT INHL,ORAL,6 0D,4GM INHALE TWO PUFFS BY INHALATI ON EVERY DAY FOR ASTHMA RESPIR ATORY (INHAL ATION) 06/29/2024 [id number] 5 RODRÍGUEZ MATHEWS 2024 3 [facility] VANICREAM APPLY THIN LAYER TOPICALL Y EVERY DAY FOR DRY SKIN TOPICA L ACTIVE 12/28/2024 [id number] 5 RODRÍGUEZ MATHEWS 2023 1362 [facility] VANICREAM APPLY THIN LAYER TOPICALL Y EVERY DAY FOR DRY SKIN TOPICA Jason DISCMADAY INUED 12/19/2023 [id number] BISIRODRÍGUEZ 2022 1362 [facility] VITAMIN E 400UNT CAP TAKE 1 CAPSULE BY MOUTH EVERY DAY ORAL ACTIVE [facility] 2013 [facility] ZINC SULFATE TAB TAKE 50MG BY MOUTH EVERY DAY ORAL ACTIVE [facility] 2014 [facility] Allergies, Adverse Reactions, Alerts Combined list of allergies from [facility] and [facility] facilities. It does not include entries that were removed or entered in error. Substance Category Reaction Severity Reaction type Status Date Reported Comments Source ATORVASTATIN Propensity to adverse reactions to drug (finding) Pain in lower limb active 9 [facility] DOXYCYCLINE Propensity to adverse reactions to drug (finding) PRURITIS, Eruption active 4 [facility] HYDROCODONE Propensity to adverse reactions to drug (finding) Disorientat ed, Drowsy, Hallucinati ons active 3 [facility] LIPITOR Propensity to adverse reactions to drug (finding) Cramp active 0 [facility] LISINOPRIL Propensity to adverse reactions to drug (finding) Abdominal discomfort active 7 [facility] METOCLOPRAMI DE Propensity to adverse reactions to drug (finding) Gynecomasti a active 0 [facility] OMEPRAZOLE Propensity to adverse reactions to drug (finding) Diarrhea active 0 [facility] SIMVASTATIN Propensity to adverse reactions to drug (finding) MUSLCE CRAMPS active 4 [facility] Immunizations Combined list of available immunizations from the Department of [facility] and [facility] facilities. Immunization Series Date Given Administered By Site Reaction Lot Number CVX Code Drug Brake Operator Status Comments Source INFLUENZA, RECOMBINANT, QUADRIVALENT, PF 2022 185 complet ed HISTORICA L INFORMATI ON - FROM OTHER REGISTRY, [facility] TDAP 2022 [facility] RIGHT DELTO ID [id number] 115 complet ed ADMINISTE RED AT AL, [facility] INFLUENZA, UNSPECIFIED FORMULATION 2021 88 complet ed HISTORICA L INFORMATI ON - FROM PATIENT'S WRITTEN RECORD, [facility] COVID-19 (PFIZER), MRNA, LNP-S, PF, 30 MCG/0.3 ML DOSE, ALY-SUCROSE (AGES 12+ YEARS) 2021 217 complet ed HISTORICA L INFORMATI ON - FROM OTHER REGISTRY, [facility] COVID-19 (PFIZER), MRNA, LNP-S, PF, 30 MCG/0.3 ML DOSE 2020 208 complet ed HISTORICA L INFORMATI ON - FROM OTHER REGISTRY, [facility] INFLUENZA, UNSPECIFIED FORMULATION 2020 88 complet ed [facility] ZOSTER RECOMBINANT 2 2020 187 complet ed [facility] COVID-19 (PFIZER), MRNA, LNP-S, PF, 30 MCG/0.3 ML DOSE 2020 208 complet ed HISTORICA L INFORMATI ON - FROM OTHER REGISTRY, [facility] COVID-19 (PFIZER), MRNA, LNP-S, PF, 30 MCG/0.3 ML DOSE 2020 208 complet ed HISTORICA L INFORMATI ON - FROM OTHER REGISTRY, [facility] ZOSTER RECOMBINANT 1 2019 187 complet ed [facility] INFLUENZA, SEASONAL, INJECTABLE, PRESERVATIVE FREE 2019 140 complet ed [facility] INFLUENZA, UNSPECIFIED FORMULATION 2018 88 complet ed [facility] INFLUENZA, SEASONAL, INJECTABLE, PRESERVATIVE FREE 2017 140 complet ed [facility] INFLUENZA, HIGH DOSE SEASONAL 2016 135 complet ed [facility] INFLUENZA, HIGH-DOSE, TRIVALENT, PF 2015 135 complet ed HISTORICA L INFORMATI ON - FROM OTHER REGISTRY, [facility] INFLUENZA, HIGH DOSE SEASONAL 2014 135 complet ed [facility] PNEUMOCOCCAL CONJUGATE PCV 13 2014 133 complet ed Alphonso [id number] 08/22 [facility] INFLUENZA, UNSPECIFIED FORMULATION 2013 88 complet ed [facility] INFLUENZA, UNSPECIFIED FORMULATION 2013 88 complet ed HISTORICA L INFORMATI ON - FROM OTHER REGISTRY, [facility] ZOSTER LIVE 2013 121 complet ed HISTORICA L INFORMATI ON - FROM OTHER REGISTRY, [facility] INFLUENZA, UNSPECIFIED FORMULATION 2012 88 complet ed [facility] PNEUMOCOCCAL, UNSPECIFIED FORMULATION 2012 109 complet ed [employer], [id number], 18 JAN. 14 [facility] TDAP 2012 115 complet ed [facility] TDAP 2012 115 complet ed [facility] ZOSTER LIVE 2012 121 complet ed [employer] and co Lot#[id number] 14 [facility] TDAP 2012 115 complet ed HISTORICA L INFORMATI ON - FROM OTHER REGISTRY, [facility] INFLUENZA, UNSPECIFIED FORMULATION 2011 88 complet ed [facility] INFLUENZA, UNSPECIFIED FORMULATION 2010 88 complet ed [facility] INFLUENZA, UNSPECIFIED FORMULATION 2009 88 complet ed [facility] INFLUENZA, UNSPECIFIED FORMULATION 2008 88 complet ed [facility] TD(ADULT) UNSPECIFIED FORMULATION 2007 139 complet ed [facility] INFLUENZA, SPLIT VIRUS, TRIVALENT, PRESERVATIVE 2007 141 complet ed HISTORICA L INFORMATI ON - FROM OTHER REGISTRY, [facility] TD (ADULT), 5 LF TETANUS TOXOID, PRESERVATIVE FREE, ADSORBED 2007 113 complet ed HISTORICA L INFORMATI ON - FROM OTHER REGISTRY, [facility] INFLUENZA (HISTORICAL) 2006 88 complet ed [facility] INFLUENZA (HISTORICAL) 2005 88 complet ed [facility] INFLUENZA, UNSPECIFIED FORMULATION 2004 88 complet ed [facility] INFLUENZA, UNSPECIFIED FORMULATION 2003 88 complet ed [facility] PNEUMOCOCCAL, UNSPECIFIED FORMULATION 2003 109 complet ed [facility] TD(ADULT) UNSPECIFIED FORMULATION 2003 139 complet ed due next year [facility] INFLUENZA, SPLIT VIRUS, TRIVALENT, PRESERVATIVE 2002 141 complet ed HISTORICA L INFORMATI ON - FROM OTHER REGISTRY, [facility] INFLUENZA (HISTORICAL) 2002 88 complet ed pt states he had a Influenza vaccinati on this yr [facility] TD(ADULT) UNSPECIFIED FORMULATION 1994 139 complet ed [facility] Vital Signs Combined list of inpatient and outpatient Vital Signs from Department of [facility] and [facility] Affairs, ranging from 12 months to all on record, depending upon the facility. Vital Sign Value Date Comments Source SYSTOLIC BLOOD PRESSURE 103 12/31/2023 13:26:57 [facility] DIASTOLIC BLOOD PRESSURE 55 12/31/2023 13:26:57 [facility] PULSE OXIMETRY 95 12/31/2023 13:26:57 [facility] WEIGHT 200.2 12/31/2023 13:26:57 [facility] BMI 27 kg/m2 12/31/2023 13:26:57 [facility] PAIN 6 12/31/2023 13:26:57 [facility] TEMPERATURE 98.4 12/31/2023 13:26:57 [facility] PULSE 73 12/31/2023 13:26:57 [facility] RESPIRATION 18 12/31/2023 13:26:57 [facility] Encounters Combined list of: 1) Encounters from Department of Veterans Affairs facilities going backup to the last 18 months, not all [place] inpatient encounters are included; 2) Encounters from the Department of [facility] facilities going backup to 280 months. Location Location Details Encounter Type Encounter Number Reason For Visit Attending Provider ADM Date DC Date Status Disposition Source [facility] Outpatient Encounter [id number] DARRELL LOO 06/17 [facility] Outpatient Encounter [id number] 06/18 [facility] Outpatient Encounter [id number] Jared RUVALCABA 06/25 [facility] HEARING AID CHECK BOTH EARS [id number] Diagnos is: ICD-10- CM Z46.1 Encount er for fitting and adjustm ent of hearing aid DANELLE MAYFIELD M 07/23 [place] [facility] PRO PHONE CALL 5-10 MIN [id number] Diagnos is: ICD-10- CM H04.129 Dry eye syndrom e of unspeci fied lacrima l gland FADUMO HERNANDEZ KAREN K 08/09 [place] [facility] OFF/OP EST MAY X REQ PHY/QHP [id number] Diagnos is: ICD-10- CM Z01.118 Encntr for exam of ears and hearing w oth abnorma l finding s DAYANNA CRAWFORD K 10/14 [place] [facility] Outpatient Encounter [id number] 10/23 [facility] CONFORMITY EVALUATION [id number] Diagnos is: ICD-10- CM H90.3 Sensori neural hearing loss, bilater al DAYANNA CRAWFORD K 11/16 [place] [facility] Outpatient Encounter [id number] 12/30 [facility] OFFICE O/P EST HI 40 MIN [id number] Diagnos is: ICD-10- CM M79.646 Pain in unspeci fied finger( s) Saskia MATHEWS H 12/30 [place] [facility] [place] [facility] Outpatient Encounter [id number] DEBRA PINTO 01/20 [place] [facility] [place] [facility] Outpatient Encounter [id number] 02/10 [place] [facility] [place] [facility] Outpatient Encounter [id number] DEBRA PINTO 02/14 [place] [facility] [place] [facility] Outpatient Encounter [id number] KALYANI COPELAND H 02/23 [place] [facility] [place] [facility] SELF CARE MNGMENT TRAINING [id number] Diagnos is: ICD-10- CM R26.89 Other abnorma lities of gait and mobilit y RASHEL HAYES 04/07 [place] [facility] [place] [facility] SELF CARE MNGMENT TRAINING [id number] Diagnos is: ICD-10- CM R26.89 Other abnorma lities of gait and mobilit y RASHEL HAYES 04/28 [place] [facility] [place] [facility] SELF CARE MNGMENT TRAINING [id number] Diagnos is: ICD-10- CM R26.89 Other abnorma lities of gait and mobilit y RASHEL HAYES 05/17 [facility] [place] [facility] Outpatient Encounter [id number] 06/06 [place] [facility] [place] [facility] Outpatient Encounter [id number] 06/14 [place] [facility] [place] [facility] Outpatient Encounter [id number] 06/20 [place] [facility] [place] [facility] Outpatient Encounter [id number] 06/20 [place] [facility] [place] [facility] NQHP OL DIG ASSMT&MGMT 5-10 [id number] Diagnos is: ICD-10- CM I25.10 Athscl heart disease of [place] coronar y artery w/o ang pctANGIE Barbour 06/20 [place] [facility] [place] [facility] Outpatient Encounter [id number] 07/11 [place] [facility] [place] [facility] Outpatient Encounter [id number] CASANDRA EUBANKS 07/20 [place] [facility] [place] [facility] Outpatient Encounter [id number] SATINDER KNIGHT 07/26 [place] [facility] [place] [facility] SELF CARE MNGMENT TRAINING [id number] Diagnos is: ICD-10- CM R26.89 Other abnorma lities of gait and mobilit y RASHEL HAYES 07/26 [place] [facility] [place] [facility] Outpatient Encounter [id number] 08/12 [place] [facility] [place] [facility] Outpatient Encounter [id number] 09/09 [place] [facility] [place] [facility] Outpatient Encounter [id number] 09/13 [place] [facility] PH1 ASSMT&MGMT NQHP 11-20 [id number] Diagnos is: ICD-10- CM R53.1 WeakMAGGIE Kumar 09/23 [facility] [place] [facility] Outpatient Encounter [id number] 10/03 [place] [facility] [place] [facility] Outpatient Encounter [id number] 10/06 [place] [facility] [place] [facility] Outpatient Encounter [id number] 10/07 [place] [facility] [place] [facility] Outpatient Encounter [id number] 10/07 [place] [facility] [place] [facility] Outpatient Encounter [id number] 10/18 [place] [facility] [place] [facility] Outpatient Encounter [id number] 10/31 [place] [facility] [place] [facility] Outpatient Encounter [id number] 11/10 [place] [facility] Social History Combined list of available smoking, tobacco, and 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 Social History Type Response Date Comment Sourc e [facility] [place] [facility] History of tobacco use [facility] 1 5 YRS OR MORE 12/31/2023 [facility] History of tobacco use [facility] QUIT 1 5 YRS OR MORE 12/18/2022 [facility] History of tobacco use [facility] FORMER USER 11/05/2021 [facility] History of tobacco use [facility] QUIT 1 5 YRS OR MORE 07/28/2019 [facility] History of tobacco use [facility] QUIT 1 5 YRS OR MORE 12/10/2018 [facility] History of tobacco use [facility] FORMER USER 02/25/2018 [facility] History of tobacco use FORMER TOBACCO US ER 7Y OR GREATER 04/10/2015 [facility] History of tobacco use FORMER TOBACCO US ER 7Y OR GREATER 04/27/2014 [facility] [facility] History of tobacco use FORMER TOBACCO US ER 7Y OR GREATER 06/18/2006 [facility] Plan of Care List of future care activities from Department [facility] facilities. Additional future care activities may be listed in the Assessment and Plan section. Date/Time Care Activity Care Activity Detail Facili ty 01/05/2025 AMBULATORY - MEDICINE AMBULATORY - MEDICI NE [facility] Advance Directives List of completed, amended, or rescinded Advance Directives on record at Department 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 An actual copy of the Directive is not included. Date Advance Directive Provider Source 05/23/2003 ADVANCE DIRECTIVE [facility]
--- OUTSIDE RECORDS SUMMARY | 2024-12-06 08:36 | XMS_ITS | Continuity of Care Document ---
Author Name [facility] Organization [facility] Care Team Providers Care Medical Liaison Name Role Phone [facility] Unavailable Unavailable [...] AND HOME Cataract, Senile, Unsp Active Condition [facility] Chronic cough Active Condition [facility] Chronic obstructive lung disease Active Condition [facility] Chronic rhinitis Active Condition [facility] Coronary arteriosclerosis Active Condition Nov 10 7 Entered By: LIZZETTE WEI Comment: s/p [id number] at [facility] in 07/15 [facility] Diabetes mellitus Active Condition [facility] Diabetic neuropathy Active Condition [facility] Diabetic renal disease Active Condition Dec 02, 2018 Entered By: CARLOS DALTON Comment: 10/2018: started hemodialysis @ 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 End-stage renal disease Active Condition [facility] Essential hypertension Active Condition [facility] Exposure to potentially hazardous substance Active Condition Dec 18, 2022 Entered By: CORRINE MATHEWS Comment: Asbestos [facility] Ganglion of wrist Active Condition [facility] Gastroesophageal reflux disease without esophagitis Active Condition [facility] Hemorrhoid Active Condition [facility] Hyperparathyroidism due to renal insufficiency Active Condition [facility] Hypothyroidism Active Condition [facility] Incontinence of feces Active Condition [facility] Indwelling catheter inserted Active Condition [facility] Obstructive Sleep Apnea of Adult (SCT [id number]) Active Condition October 28, 2022 Entered By: KINGS ROCHA Comment: APAP: 10-20, Ramp: 5x10 min, [place] [facility] Oropharyngeal dysphagia Active Condition Dec 14, 2022 Entered By: CORRINE MATHEWS Comment: 2013 [employer] eval in chart [facility] Psoriasis Nos Active [facility] Shared care - php consultant and GP Active Condition Dec 02 Entered By: CARLOS DALTON Comment: [facility]: [phone] ov 2020 Entered By: CARLOS DALTON Comment: Director Product Management: Dr James Pérez [phone] ov 2020 Entered By: CARLOS DALTON Comment: [facility] Cough (ICD-9-CM 786.2) Inactive Condition 03/23/2013 [facility] Diabetic Foot Ulcer (ICD-9-CM 250.80/707.8) Inactive Condition 03/23/2013 [facility] Diagnosis: ICD-10-CM R53.1 Weakness Active Diagnosis [facility] Diagnosis: ICD-10-CM R26.89 Other abnormalities of gait and mobility Active Diagnosis [facility] Diagnosis: ICD-10-CM I25.10 Athscl heart disease of chinik coronary artery w/o ang pctrs Active Diagnosis [facility] Diagnosis: ICD-10-CM M79.646 Pain in unspecified finger(s) Active Diagnosis [facility] Diagnosis: ICD-10-CM H90.3 Sensorineural hearing loss, bilateral Active Diagnosis [facility] Diagnosis: ICD-10-CM Z01.118 Encntr for exam of ears and hearing w oth abnormal findings Active Diagnosis [facility] Diagnosis: ICD-10-CM H04.129 Dry eye syndrome of unspecified lacrimal gland Active Diagnosis [facility] Diagnosis: ICD-10-CM Z46.1 Encounter for fitting and [...] E RELIEF). RESPIR ATORY (INHAL ATION) 11/09/2024 [id number] 5 CASANDRA DALTON 2023 2 [facility] AZELASTINE HCL 137MCG/SPRA Y INHL,NASAL, 30ML SPRAY 1 PUFF IN EACH NOSTRIL TWICE A DAY FOR NASAL SYMPTOMS NASAL ACTIVE 12/31/2024 [id number] 5 RODRÍGUEZ MATHEWS 2023 2 [facility] CALCIUM CARBONATE TAB,CHEWABL E CHEW ONE TABLET BY MOUTH FOUR TIMES A DAY NEEDED ORAL ACTIVE RODRÍGUEZ MATHEWS 2022 [facility] CLOPIDOGREL BISULFATE 75MG TAB TAKE ONE TABLET BY MOUTH EVERY DAY TO PREVENT BLOOD CLOTS LENGTH OF TREATMEN T: INDJAI TE, CO-MANAG ED CARE PRESCRIP TION ORAL ACTIVE 06/16/2025 [id number] 5 RODRÍGUEZ MATHEWS 2024 90 [facility] COENZYME Q10 CAP/TAB TAKE ONE TABLET BY MOUTH EVERY DAY ORAL ACTIVE CASANDRA DALTON 2012 [facility] CYCLOSPORIN E 0.05% (PF) EMULSION,OP H,0.4ML INSTILL 1 DROP BOTH EYES TWICE A DAY OPHTHA LMIC ACTIVE 10/05/2025 [id number] 5 FB-PURFEE RST,MATHEW OD 2024 60 [facility] CYCLOSPORIN E 0.05% (PF) EMULSION,OP H,0.4ML INSTILL 1 DROP BOTH EYES TWICE A DAY OPHTHA LMIC 08/10/2024 [id number] 4 FB-PURFEE RST,MATHEW OD 2023 60 [facility] DEXTROMETHO RPHAN HBR 10MG/GUAIFE NESIN 100MG/5ML (AF & SF) LIQUID TAKE 1 TEASPOON FUL BY MOUTH EVERY 4 HOURS NEEDED FOR COUGH AND CONGESTI ON ORAL ACTIVE 07/01/2025 [id number] 5 RODRÍGUEZ MATHEWS 2024 120 [facility] DEXTROMETHO RPHAN HBR 10MG/GUAIFE NESIN 100MG/5ML (AF & SF) LIQUID TAKE 1 TEASPOON FUL BY MOUTH EVERY 4 HOURS NEEDED FOR COUGH AND CONGESTI ON ORAL DISCONT INUED 03/09/2024 [id number] 4 RODRÍGUEZ MATHEWS 2022 120 [facility] DIALYVITE TAB TAKE 1 TABLET BY MOUTH EVERY DAY ORAL 07/02/2024 [id number] 5 RODRÍGUEZ MATHEWS 2023 100 [facility] FLUTICASONE 250MCG/SALM ETEROL 50MCG INHL,ORAL,D ISKUS,60 INHALE 1 PUFF BY INHALATI ON TWICE A DAY TO PREVENT TROUBLE BREATHIN G -RINSE MOUTH AFTER USING RESPIR ATORY (INHAL ATION) ACTIVE 12/28/2024 [id number] 5 RODRÍGUEZ MATHEWS 2023 3 [facility] FLUTICASONE 250MCG/SALM ETEROL 50MCG INHL,ORAL,D ISKUS,60 INHALE 1 PUFF BY INHALATI ON TWICE A DAY TO PREVENT TROUBLE BREATHIN G -RINSE MOUTH AFTER USING RESPIR ATORY (INHAL ATION) DISCONT INUED 09/23/2023 [id number] 4 RODRÍGUEZ MATHEWS 2022 3 [facility] INSULIN,ASP ART,HUMAN (EQV-NOVOLO G) 100 UNIT/ML,FLE XPEN,3ML INJECT 5 UNITS UNDER THE SKIN BEFORE MEALS FOR DIABETES SUBCUT ANEOUS 10/26/2024 [id number] 4 RODRÍGUEZ MATHEWS 2023 5 [facility] INSULIN,GLA RGINE-YFGN 100UNIT/ML INJ PEN,3ML INJECT 18 UNITS UNDER THE SKIN EVERY DAY FOR DIABETES DISCAR D PEN 28 DAYS AFTER INITIAL USE SUBCUT ANEOUS 06/09/2024 [id number] 4 RODRÍGUEZ MATHEWS 2023 5 [facility] LEVOTHYROXI NE NA 200MCG TAB (SYNTHROID) TAKE ONE TABLET BY MOUTH EVERY DAY FOR THYROID ORAL ACTIVE 12/28/2024 [id number] 5 RODRÍGUEZ MATHEWS 2023 90 [place] [facility] LEVOTHYROXI NE NA 200MCG TAB (SYNTHROID) TAKE ONE TABLET BY MOUTH EVERY DAY FOR THYROID ORAL DISCONT INUED 01/13/2024 [id number] 4 ROD[facility]ÍGUEZ MATHEWS 2022 90 [facility] LORATADINE 10MG TAB TAKE ONE TABLET BY MOUTH EVERY DAY NEEDED ORAL ACTIVE RODRÍGUEZ MATHEWS 2022 [place] [facility] MARINE LIPID (FISH OIL) CAP,ORAL TAKE 1200MG BY MOUTH EVERY DAY ORAL ACTIVE CASANDRA DALTON 2010 [facility] MIDODRINE HCL 10MG TAB TAKE ONE TABLET BY MOUTH DIRECTED - TAKE 1 TABLET BEFORE DIALYSIS AND 1 TABLET AFTER DIALYSIS , NEEDED FOR HYPOTENS ION OTHER DAYS ORAL ACTIVE 06/21/2025 [id number] 5 Stefany TRAN 2024 90 [facility] MONTELUKAST NA 10MG TAB TAKE ONE TABLET BY MOUTH EVERY DAY ORAL ACTIVE 06/21/2025 [id number] 5 CASANDRA DALTON 2024 90 [facility] MONTELUKAST NA 10MG TAB TAKE ONE TABLET BY MOUTH EVERY DAY [facility] [id number] 4 CASANDRA DALTON 2022 90 [facility] NITROGLYCER IN 0.4MG TAB,SUBLING UAL DISSOLVE ONE TABLET UNDER THE TONGUE PRN SUBLIN GUAL ACTIVE CASANDRA DALTON 2010 [facility] PANTOPRAZOL E NA 40MG TAB,EC TAKE ONE TABLET BY MOUTH EVERY DAY ONE-HALF HOUR BEFORE EATING. ORAL ACTIVE 06/21/2025 [id number] 5 CASANDRA DALTON 2024 90 [place] [facility] PANTOPRAZOL E NA 40MG TAB,EC TAKE ONE TABLET BY MOUTH EVERY DAY ONE-HALF HOUR BEFORE EATING. [facility] 07/[facility]20[facility] [id number] 4 CASANDRA DALTON 2023 90 [facility] PRAVASTATIN NA 40MG TAB TAKE ONE TABLET BY MOUTH AT BEDTIME FOR CHOLESTE ROL ORAL ACTIVE 11/02/2025 [id number] 5 RODRÍGUEZ MATHEWS 2024 90 [place] [facility] PRAVASTATIN NA 40MG TAB TAKE ONE TABLET BY MOUTH AT BEDTIME FOR CHOLESTE ROL ORAL 06/06/2024 [id number] 4 RODRÍGUEZ MATHEWS 2023 90 [facility] SULFAMETHOX AZOLE 800MG/TRIME THOPRIM 160MG TAB TAKE 1 TABLET BY MOUTH TWICE A DAY ORAL 01/30/2024 [id number] 4 RODRÍGUEZ MATHEWS 2023 20 [facility] TIOTROPIUM 2.5MCG/ACTU AT INHL,ORAL,6 0D,4GM INHALE TWO PUFFS BY INHALATI ON EVERY DAY FOR ASTHMA RESPIR ATORY (INHAL ATION) DISCONT INUED 04/01/2025 [id number] 4 [place] 2023 1 [facility] TIOTROPIUM 2.5MCG/ACTU AT INHL,ORAL,6 0D,4GM INHALE TWO PUFFS BY INHALATI ON EVERY DAY FOR ASTHMA RESPIR ATORY (INHAL ATION) DISCONT INUED 08/26/2024 [id number] 4 [place] 2023 1 [facility] TIOTROPIUM 2.5MCG/ACTU AT INHL,ORAL,6 0D,4GM INHALE TWO PUFFS BY INHALATI ON EVERY DAY FOR ASTHMA RESPIR ATORY (INHAL ATION) 06/29/2024 [id number] 5 RODRÍGUEZ MATHEWS 2024 3 [facility] VANICREAM APPLY THIN LAYER TOPICALL Y EVERY DAY FOR DRY SKIN TOPICA L ACTIVE 12/28/2024 [id number] 5 RODRÍGUEZ MATHEWS 2023 1362 [facility] VANICREAM APPLY THIN LAYER TOPICALL Y EVERY DAY FOR DRY SKIN TOPICA Jason DISCMADAY INUED 12/19/2023 [id number] BISIRODRÍGUEZ 2022 1362 [facility] VITAMIN E 400UNT CAP TAKE 1 CAPSULE BY MOUTH EVERY DAY ORAL ACTIVE [facility] 2013 [facility] ZINC SULFATE TAB TAKE 50MG BY MOUTH EVERY DAY ORAL ACTIVE [facility] 2014 [facility] Allergies, Adverse Reactions, Alerts Combined list of allergies from [facility] and [facility] facilities. It does not include entries that were removed or entered in error. Substance Category Reaction Severity Reaction type Status Date Reported Comments Source ATORVASTATIN Propensity to adverse reactions to drug (finding) Pain in lower limb active 9 [facility] DOXYCYCLINE Propensity to adverse reactions to drug (finding) PRURITIS, Eruption active 4 [facility] HYDROCODONE Propensity to adverse reactions to drug (finding) Disorientat ed, Drowsy, Hallucinati ons active 3 [facility] LIPITOR Propensity to adverse reactions to drug (finding) Cramp active 0 [facility] LISINOPRIL Propensity to adverse reactions to drug (finding) Abdominal discomfort active 7 [facility] METOCLOPRAMI DE Propensity to adverse reactions to drug (finding) Gynecomasti a active 0 [facility] OMEPRAZOLE Propensity to adverse reactions to drug (finding) Diarrhea active 0 [facility] SIMVASTATIN Propensity to adverse reactions to drug (finding) MUSLCE CRAMPS active 4 [facility] Immunizations Combined list of available immunizations from the Department of [facility] and [facility] facilities. Immunization Series Date Given Administered By Site Reaction Lot Number CVX Code Drug Park Aide Status Comments Source INFLUENZA, RECOMBINANT, QUADRIVALENT, PF 2022 185 complet ed HISTORICA L INFORMATI ON - FROM OTHER REGISTRY, [facility] TDAP 2022 [facility] RIGHT DELTO ID [id number] 115 complet ed ADMINISTE RED AT PR, [facility] INFLUENZA, UNSPECIFIED FORMULATION 2021 88 complet ed HISTORICA L INFORMATI ON - FROM PATIENT'S WRITTEN RECORD, [facility] COVID-19 (PFIZER), MRNA, LNP-S, PF, 30 MCG/0.3 ML DOSE, ALY-SUCROSE (AGES 12+ YEARS) 2021 217 complet ed HISTORICA L INFORMATI ON - FROM OTHER REGISTRY, [facility] COVID-19 (PFIZER), MRNA, LNP-S, PF, 30 MCG/0.3 ML DOSE 2020 208 complet ed HISTORICA L INFORMATI ON - FROM OTHER REGISTRY, [facility] INFLUENZA, UNSPECIFIED FORMULATION 2020 88 complet ed [facility] ZOSTER RECOMBINANT 2 2020 187 complet ed [facility] COVID-19 (PFIZER), MRNA, LNP-S, PF, 30 MCG/0.3 ML DOSE 2020 208 complet ed HISTORICA L INFORMATI ON - FROM OTHER REGISTRY, [facility] COVID-19 (PFIZER), MRNA, LNP-S, PF, 30 MCG/0.3 ML DOSE 2020 208 complet ed HISTORICA L INFORMATI ON - FROM OTHER REGISTRY, [facility] ZOSTER RECOMBINANT 1 2019 187 complet ed [facility] INFLUENZA, SEASONAL, INJECTABLE, PRESERVATIVE FREE 2019 140 complet ed [facility] INFLUENZA, UNSPECIFIED FORMULATION 2018 88 complet ed [facility] INFLUENZA, SEASONAL, INJECTABLE, PRESERVATIVE FREE 2017 140 complet ed [facility] INFLUENZA, HIGH DOSE SEASONAL 2016 135 complet ed [facility] INFLUENZA, HIGH-DOSE, TRIVALENT, PF 2015 135 complet ed HISTORICA L INFORMATI ON - FROM OTHER REGISTRY, [facility] INFLUENZA, HIGH DOSE SEASONAL 2014 135 complet ed [facility] PNEUMOCOCCAL CONJUGATE PCV 13 2014 133 complet ed Alphonso [id number] 08/22 [facility] INFLUENZA, UNSPECIFIED FORMULATION 2013 88 complet ed [facility] INFLUENZA, UNSPECIFIED FORMULATION 2013 88 complet ed HISTORICA L INFORMATI ON - FROM OTHER REGISTRY, [facility] ZOSTER LIVE 2013 121 complet ed HISTORICA L INFORMATI ON - FROM OTHER REGISTRY, [facility] INFLUENZA, UNSPECIFIED FORMULATION 2012 88 complet ed [facility] PNEUMOCOCCAL, UNSPECIFIED FORMULATION 2012 109 complet ed [employer], [id number], 18 JAN. 14 [facility] TDAP 2012 115 complet ed [facility] TDAP 2012 115 complet ed [facility] ZOSTER LIVE 2012 121 complet ed [employer] and [employer] Lot#[id number] 14 [facility] TDAP 2012 115 complet ed HISTORICA L INFORMATI ON - FROM OTHER REGISTRY, [facility] INFLUENZA, [...] [facility] INFLUENZA, SPLIT VIRUS, TRIVALENT, PRESERVATIVE 2007 141 complet ed HISTORICA L INFORMATI ON - FROM OTHER REGISTRY, [facility] TD (ADULT), 5 LF TETANUS TOXOID, PRESERVATIVE FREE, ADSORBED 2007 113 complet ed HISTORICA L INFORMATI ON - FROM OTHER REGISTRY, [facility] INFLUENZA [...] year [facility] INFLUENZA, SPLIT VIRUS, TRIVALENT, PRESERVATIVE 2002 141 complet ed HISTORICA L INFORMATI ON - FROM OTHER REGISTRY, [facility] INFLUENZA (HISTORICAL) 2002 88 complet ed pt states he had a Influenza vaccinati on this yr [facility] TD(ADULT) UNSPECIFIED FORMULATION 1994 139 complet ed [facility] Vital Signs Combined list of inpatient and outpatient Vital Signs from Department of [facility] and [facility] Affairs, ranging from 12 months to all on record, depending upon the facility. Vital Sign Value Date Comments Source SYSTOLIC BLOOD PRESSURE 103 12/31/2023 13:26:57 [facility] DIASTOLIC BLOOD PRESSURE 55 12/31/2023 13:26:57 [facility] PULSE OXIMETRY 95 12/31/2023 13:26:57 [facility] WEIGHT 200.2 12/31/2023 13:26:57 [facility] BMI 27 kg/m2 12/31/2023 13:26:57 [facility] PAIN 6 12/31/2023 13:26:57 [facility] TEMPERATURE 98.4 12/31/2023 13:26:57 [facility] PULSE 73 12/31/2023 13:26:57 [facility] RESPIRATION 18 12/31/2023 13:26:57 [facility] Encounters Combined list of: 1) Encounters from Department of Veterans Affairs facilities going backup to the last 18 months, not all [place] inpatient encounters are included; 2) Encounters from the Department of [facility] facilities going backup to 280 months. Location Location Details Encounter Type Encounter Number Reason For Visit Attending Provider ADM Date DC Date Status Disposition Source [facility] Outpatient Encounter [id number] DARRELL LOO 06/17 [facility] Outpatient Encounter [id number] 06/18 [facility] Outpatient Encounter [id number] Jared RUVALCABA 06/[address] [facility] HEARING AID CHECK BOTH EARS [id number] Diagnos is: ICD-10- CM Z46.1 Encount er for fitting and adjustm ent of hearing aid DANELLE MAYFIELD M 07/23 [place] [facility] IS [facility] PRO PHONE CALL 5-10 MIN [id number] Diagnos is: ICD-10- CM H04.129 Dry eye syndrom e of unspeci fied lacrima l gland FADUMO HERNANDEZ KAREN K 08/09 [place] [facility] IS [facility] OFF/OP EST MAY X REQ PHY/QHP [id number] Diagnos is: ICD-10- CM Z01.118 Encntr for exam of ears and hearing w oth abnorma l finding s DAYANNA CRAWFORD K 10/14 [place] [facility] Outpatient Encounter [id number] 10/23 [facility] CONFORMITY EVALUATION [id number] Diagnos is: ICD-10- CM H90.3 Sensori neural hearing loss, bilater al DAYANNA CRAWFORD K 11/16 [place] [facility] IS [facility] Outpatient Encounter [id number] 12/30 [facility] IS [facility] OFFICE O/P EST HI 40 MIN [id number] Diagnos is: ICD-10- CM M79.646 Pain in unspeci fied finger( s) Saskia MATHEWS H 12/30 [place] [facility] [place] [facility] Outpatient Encounter [id number] DEBRA PINTO 01/20 [place] [facility] [place] [facility] Outpatient Encounter [id number] 02/10 [place] [facility] [place] [facility] Outpatient Encounter [id number] DEBRA PINTO 02/14 [place] [facility] [place] [facility] Outpatient Encounter [id number] KALYANI COPELAND H 02/23 [place] [facility] [place] [facility] SELF CARE MNGMENT TRAINING [id number] Diagnos is: ICD-10- CM R26.89 Other abnorma lities of gait and mobilit y RASHEL HAYES 04/07 [place] [facility] [place] [facility] SELF CARE MNGMENT TRAINING [id number] Diagnos is: ICD-10- CM R26.89 Other abnorma lities of gait and mobilit y RASHEL HAYES 04/28 [place] [facility] [place] [facility] SELF CARE MNGMENT TRAINING [id number] Diagnos is: ICD-10- CM R26.89 Other abnorma lities of gait and mobilit y RASHEL HAYES 05/17 [facility] [place] [facility] Outpatient Encounter [id number] 06/06 [place] [facility] [place] [facility] Outpatient Encounter [id number] 06/14 [place] [facility] [place] [facility] Outpatient Encounter [id number] 06/20 [place] [facility] [place] [facility] Outpatient Encounter [id number] 06/20 [place] [facility] [place] [facility] NQHP OL DIG ASSMT&MGMT 5-10 [id number] Diagnos is: ICD-10- CM I25.10 Athscl heart disease of chin[place] coronar y artery w/o ang pctANGIE Barbour 06/20 [place] [facility] [place] [facility] Outpatient Encounter [id number] 07/11 [place] [facility] [place] [facility] Outpatient Encounter [id number] CASANDRA EUBANKS 07/20 [place] [facility] [place] [facility] Outpatient Encounter [id number] SATINDER KNIGHT 07/26 [place] [place] [facility] SELF CARE MNGMENT TRAINING [id number] Diagnos is: ICD-10- CM R26.89 Other abnorma lities of gait and mobilit y RASHEL HAYES 07/26 [place] [facility] [place] [facility] Outpatient Encounter [id number] 08/12 [place] [facility] [place] [facility] Outpatient Encounter [id number] 09/09 [place] [facility] [place] [facility] Outpatient Encounter [id number] 09/13 [place] [facility] PH1 ASSMT&MGMT NQHP 11-20 [id number] Diagnos is: ICD-10- CM R53.1 WeakMAGGIE Kumar 09/23 [facility] [place] [facility] Outpatient Encounter [id number] 10/03 [place] [facility] [place] [facility] Outpatient Encounter [id number] 10/06 [place] [facility] [place] [facility] Outpatient Encounter [id number] 10/07 [place] [facility] [place] [facility] Outpatient Encounter [id number] 10/07 [place] [facility] [place] [facility] Outpatient Encounter [id number] 10/18 [place] [facility] [place] [facility] Outpatient Encounter [id number] 10/31 [place] [facility] [place] [facility] Outpatient Encounter [id number] 11/10 [place] [facility] Social History Combined list of available smoking, tobacco, and 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 Social History Type Response Date Comment Sourc e [facility] [place] [facility] History of tobacco use [facility] 1 5 YRS OR MORE 12/31/2023 [facility] History [facility] tobacco use [facility] QUIT 1 5 YRS OR MORE 12/18/2022 [facility] History [facility] tobacco use [facility] FORMER USER 11/05/2021 [facility] History of tobacco use [facility] QUIT 1 5 YRS OR MORE 07/28/2019 [facility] History of tobacco use [facility] QUIT 1 5 YRS OR MORE 12/10/2018 [facility] History of tobacco use [facility] FORMER USER 02/25/2018 [facility] History of tobacco use FORMER TOBACCO US ER 7Y OR GREATER 04/10/2015 [facility] History of tobacco use FORMER TOBACCO US ER 7Y OR GREATER 04/27/2014 [facility] History of tobacco use FORMER TOBACCO US ER 7Y OR GREATER 06/18/2006 [facility] Plan of Care List of future care activities from Department [facility] facilities. Additional future care activities may be listed in the Assessment and Plan section. Date/Time Care Activity Care Activity Detail Facili ty 01/05/2025 AMBULATORY - MEDICINE AMBULATORY - MEDICI NE [facility] Advance Directives List of completed, amended, or rescinded Advance Directives on record at Department [facility] 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 An actual copy of the Directive is not included. Date Advance Directive Provider Source 05/23/2003 ADVANCE DIRECTIVE [facility]
[2024-12-09] VITALS (12 sets, daily range): BP systolic 99; BP diastolic 45; PULSE 69–79; RESP 12; TEMP 36.9; O2SAT 91–95; BMI 23.2
--- OUTSIDE RECORDS SUMMARY | 2024-12-09 15:00 | XMS_ITS ---
Author Organization [facility] Care Team Providers Care Central Supply Assistant Name Role Phone Sundeep John Unavailable Unavailable Allergies and adverse reactions Code CodeSystem Substance Reaction Severity StartDate Concern Status 7646 RXNORM Omeprazole Unknown 02/14/2021 active 6915 RXNORM Metoclopramide Unknown 02/14/2021 active 52791 RXNORM Lisinopril Unknown 02/14/2021 active Lipitor Unknown 02/14/2021 active Care Team Name Role Address Phone Organization Dates Sundeep John PCP [address] [facility] [address], [address], [place] (Office): : [facility] 02/14/2021 - 02/28/2021 Immunizations Immunization Status Vaccine Details Vaccine Code CodeSystem Date Notes TB 2 Step Mantoux Skin Test completed tuberculin skin test; unspecified formulation lotNumber: [id number] expiry: 02/27/2022 Mfg: Per parmaceutical Given 0.1 ml Right Forearm intradermally Step 2 of Multi-step with next step required 98 CVX created date: 02/27/2021 consent date: 02/27/2021 administer ed date: 02/25/2021 Educated by raymundo on 02/27/2021 TB 2 Step Mantoux Skin Test completed tuberculin skin test; unspecified formulation lotNumber: [id number] expiry: 03/07/2022 Mfg: PAR pharmaceutical Given 0.1 ml Right Forearm intradermally Step 1 of Multi-step with next step required 98 CVX created date: 02/15/2021 consent date: 02/14/2021 administer ed date: 02/14/2021 Pneumococcal Vaccine PCV 13 completed pneumococcal conjugate vaccine, 13 valent 133 CVX created date: 02/15/2021 administer ed date: 04/11/2015 [facility] Mental Status Section Date Assessment Total Score Description 02/28/2021 BIMS 15 cognitively int act CAM 0 No delirium ind icated PHQ-9 06 mild depression 02/21/2021 BIMS 15 cognitively int act CAM 0 No delirium ind icated PHQ-9 06 mild depression Problems Problem # Description Date of onset Resolved Date Code CodeSystem Concern Status 1 COVID-19 02/15/[address] active 2 END STAGE RENAL DISEASE 02/15/[address] active 3 OBESITY, UNSPECIFIED 02/15/[address] active 4 PNEUMONIA DUE TO CORONAVIRUS DISEASE 2019 02/15/[id number] active 5 TYPE 2 DIABETES MELLITUS WITH DIABETIC NEUROPATHY, UNSPECIFIED 02/15/[address] active 6 UNSTEADINESS ON FEET 02/15/[address] active 7 MUSCLE WEAKNESS (GENERALIZED) 02/08/[address] active 8 NEED FOR ASSISTANCE WITH PERSONAL CARE 02/08/[id number] active Reason for Referral No Reasons for Referral Entered Social History Social History Observation Description Start Date End Date Code Code System Current Smoking Status Tobacco smoking consumption unknown 659489457 SNOMED CT Sex Assigned At Male 1940 55727-3 [facility] Gender Identity Vital Signs Code Code System Vitals Name Values and Units Timing Information 8310-5 [facility] Body Temperature Value=98.0 Units= F 02/28/2021 49165-3 [facility] O2 % BldC Oximetry Value=96.0 Units= % 02/28/2021 2339-0 [facility] Blood Sugar Value=98.0 Units=mg/dL 02/28/2021 9279-1 [facility] Respiratory Rate Value=18.0 Units=/m in 02/27/2021 8462-4 [facility] Blood Pressure-Diastolic Value=54 Un its=mmHg 02/27/2021 8480-6 [facility] Blood Pressure-Systolic Oujkh=929 Un its=mmHg 02/27/2021 8867-4 [facility] Heart rate Value=70.0 Units=/min 83132-9 [facility] Pain Level Value=0.0 02/27/2021 12039-7 [facility] Weight Qeylo=904.7 Units=Lbs
--- OUTSIDE RECORDS SUMMARY | 2024-12-09 15:01 | XMS_ITS ---
Author Name [facility], Clinic Address [address] [place] [id number] Phone [phone] Organization [facility] e, NA DOCUMENT DISCLAIMER Multiple document versions may exist, please be sure you review the latest version. The information in the [facility] Continuity of Care Document represents a summary of certain health and medical information. It may not contain the complete medical history for the patient and should be independently verified. The represented time in the document is Eastern Time. 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 July 20, 2024 Encounter for immunization Z23 Active O ctober 2023 Pain, unspecified R52 Active December 03 024 Allergy, unspecified, initial encounter T78.40XA A ctive October 02, 2023 Anaphylactic shock, unspecified, initial encounter T78 .2XXA Active October 02, 2023 nursing home (current) use of aspirin Z79.82 Active September 15, 2023 joint terminal attack controller (current) use of insulin Z79.4 Active September 15, 2023 Chronic obstructive pulmonary disease, unspecified J44 .9 Active September 15, 2023 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 [...] SOCIAL HISTORY Tobacco Use Status Tobacco Type Former smoker Cigarettes Caregiver Characteristics Need Level ADL Type Relationship of Caregiver Requires some assistance Bathing Dressin g Toileting Laund ry Housekeeping Medication management Managing medical appointments Managing finances Family Home health services Characteristics of Home environment Housing Status Patient Resides With House , [place] Gender and Sex Information Gender Identity Sexual Orientation No Information Available No Information Available MEDICATIONS Prescribed Medications for Dialysis Treatments Medication Instructions Dosage Route Start Date End Date Status Acetaminophen PRN 650 mg Oral October 10, 2024 October 09, 2025 Active Diphenhydramine PRN Anaphylaxis 50 mg Intraveno us - push October 05, 2024 October 04, 2025 Active Iron Sucrose (Venofer) During Dialysis, 1X Week 50 mg Intravenous - push October 19, 2024 October 18, 2025 Active Mircera During Dialysis, Every 2 weeks 200 mcg Intravenous - push November 18, 2024 November 17, 2025 Active Home Medications Medication Instructions [...] capsule ORAL January 07, 2023 Active Dialyvite [id number]-ow-[id number]-mg Take by mouth every evening with meals 1 tablet ORAL January 07, 2023 Active floradix Unknown January 11, 2024 Active hydrocortisone 2.5% Apply to affected area twice a day as needed TOPICAL January 07, 2023 Active iron 5mg Unknown January 11, 2024 Active Levo-T 175 mcg Take by mouth once a day 1 tablet ORAL October 29, 2020 Active methyl salicylate-menthol 15-10% Apply to affected [...] Sign Value Date / Time Blood Pressure-sitting 115/54 mmHg December 07, 2024 11:32 AM Heart Rate 71 beats per minute December 07 11:32 AM Respiratory Rate 16 breaths per minute December 07, 2024 11:32 AM Temperature 97.8 deg. F December 07, 2024 11 :32 AM Weight Vital Sign Value Date / Time Estimated Dry Weight 79.6 kg October 26 11:59 PM Pre-Dialysis 86.20 kg December 07, 2024 11 :32 AM Post-Dialysis 82.00 kg December 07, 2024 11 :32 AM Other Other Value Date / Time Height 183 cm October 02, 2023 1 2:00 AM Body Mass Index 23.77 kg/m2 November 21, 2024 01 :43 PM [facility] LAB RESULTS Hematology Result Type Result Value Relevant Referen ce Range Interpretation Date UIBC (Calc) 127 mcg/dL 155 - 355 mcg/dL Low June 15, 2024 TIBC 208 mcg/dL 185 - 515 mcg/dL - June 15, 2024 Transferrin Sat. (Calc) 39 % 20 - 55 % - June 15, 2024 Platelets 191 1000/mcL 130 - 400 1000/mcL - Emeka elba 2024 WBC (No Diff) 5.77 1000/mcL 4.80 - 10.80 1000/mcL - June 15, 2024 Neutrophils 70.5 % 40.0 - 75.0 % - June Ferritin 1620 ng/mL 22 - 322 ng/mL High July UIBC (Calc) 137 mcg/dL 155 - 355 mcg/dL Low Februar y 2024 TIBC 209 mcg/dL 185 - 515 mcg/dL - July 13, 2024 Transferrin Sat. (Calc) 34 % 20 - 55 % - July 13 WBC (No Diff) 4.89 1000/mcL 4.80 - 10.80 1000/mcL - August 10, 2024 Neutrophils 78.8 % 40.0 - 75.0 % High August 10, 2024 Platelets 198 1000/mcL 130 - 400 1000/mcL - Dru h 2024 UIBC (Calc) 159 mcg/dL 155 - 355 mcg/dL - August TIBC 197 mcg/dL 185 - 515 mcg/dL - August Transferrin Sat. (Calc) 19 % 20 - 55 % Low August 10, 2024 Lymphocytes 7.2 % 19.0 - 48.0 % Low September 12, 2024 Transferrin Sat. (Calc) 19 % 20 - 55 % Low September 12, 2024 Monocytes 6.9 % 3.0 - 10.0 % - September 12 Ferritin 873 ng/mL 22 - 322 ng/mL High September 12, 2024 Neutrophils 80.3 % 40.0 - 75.0 % High September 12, 2024 COURTNEY 3.9 % 0.0 - 4.0 % - September 12 WBC (No Diff) 7.94 1000/mcL 4.80 - 10.80 1000/mcL - September 12, 2024 Eosinophil 1.6 % 0.0 - 7.0 % - September 12 5 Basophils 0.1 % 0.0 - 1.5 % - September 12 TIBC 180 mcg/dL 185 - 515 mcg/dL Low September Iron 34 mcg/dL 45 - 160 mcg/dL Low September 12, 2024 UIBC (Calc) 146 mcg/dL 155 - 355 mcg/dL Low September RDW 18.2 % 11.5 - 14.5 % High September 12 MCH 30.3 pg 27.0 - 31.0 pg - September 12, 2024 MCHC 32.0 g/dL 30.0 - 36.0 g/dL - September Hemoglobin x 3 34.2 % 42.0 - 54.0 % Low September Platelets 170 1000/mcL 130 - 400 1000/mcL - Apri l 2024 Hemoglobin x 3 35.4 % 42.0 - 54.0 % Low September Hemoglobin x 3 36.3 % 42.0 - 54.0 % Low September 072024 Hemoglobin x 3 35.1 % 42.0 - 54.0 % Low September 082024 Transferrin Sat. (Calc) 34 % 20 - 55 % - October 12, 2024 TIBC 193 mcg/dL 185 - 515 mcg/dL - October 12, 2024 UIBC (Calc) 127 mcg/dL 155 - 355 mcg/dL Low October 12, 2024 Iron 66 mcg/dL 45 - 160 mcg/dL - October 12 WBC (No Diff) 5.29 1000/mcL 4.80 - 10.80 1000/mcL - October 12, 2024 Neutrophils 70.2 % 40.0 - 75.0 % - October 12 25 Lymphocytes 11.4 % 19.0 - 48.0 % Low October 12 25 Basophils 0.4 % 0.0 - 1.5 % - October 12, 2024 COURTNEY 4.4 % 0.0 - 4.0 % High October 12, 2024 Monocytes 9.8 % 3.0 - 10.0 % - October 12, 2024 Eosinophil 3.8 % 0.0 - 7.0 % - October 12, 2024 MCHC 31.6 g/dL 30.0 - 36.0 g/dL - October 12, 2024 RDW 17.8 % 11.5 - 14.5 % High October 12 MCH 29.4 pg 27.0 - 31.0 pg - October 12 Platelets 88 1000/mcL 130 - 400 1000/mcL Low October Hemoglobin x 3 33.3 % 42.0 - 54.0 % Low October 12, 2024 Ferritin 1106 ng/mL 22 - 322 ng/mL High October 17 Hemoglobin x 3 31.2 % 42.0 - 54.0 % Low October 19, 2024 Hemoglobin x 3 30.0 % 42.0 - 54.0 % Low November 02, 2024 TIBC 205 mcg/dL 185 - 515 mcg/dL - November 09, 2024 Transferrin Sat. (Calc) 35 % 20 - 55 % - November 09, 2024 Iron 71 mcg/dL 45 - 160 mcg/dL - November 09, 2024 UIBC (Calc) 134 mcg/dL 155 - 355 mcg/dL Low November Neutrophils 76.1 % 40.0 - 75.0 % High November 09 Monocytes 7.6 % 3.0 - 10.0 % - November 09 Eosinophil 2.2 % 0.0 - 7.0 % - November 09, 2024 Lymphocytes 8.8 % 19.0 - 48.0 % Low November 09 WBC (No Diff) 6.15 1000/mcL 4.80 - 10.80 1000/mcL - November 09, 2024 RBC 3.25 mill/mcL 4.70 - 6.10 mill/mcL Low November 09, 2024 Basophils 0.3 % 0.0 - 1.5 % - November 09, 2024 COURTNEY 5.0 % 0.0 - 4.0 % High November 09, 2024 MCH 29.3 pg 27.0 - 31.0 pg - November 09 025 HCT 28.5 % 42.0 - 52.0 % Low November 09 HGB 9.5 g/dL 14.0 - 18.0 g/dL Low November 09, 2024 Hemoglobin x 3 28.5 % 42.0 - 54.0 % Low November MCHC 33.3 g/dL 30.0 - 36.0 g/dL - November 09, 2024 RDW 19.0 % 11.5 - 14.5 % High November 09 Platelets 134 1000/mcL 130 - 400 1000/mcL - November 09, 2024 HGB 8.2 g/dL 14.0 - 18.0 g/dL Low November 16, 2024 Hemoglobin x 3 24.6 % 42.0 - 54.0 % Low November Hemoglobin x 3 27.6 % 42.0 - 54.0 % Low November HGB 9.2 g/dL 14.0 - 18.0 g/dL Low November 23, 2024 HGB 8.8 g/dL 14.0 - 18.0 g/dL Low November 30, 2024 Hemoglobin x 3 26.4 % 42.0 - 54.0 % Low November Neutrophils 73.8 % 40.0 - 75.0 % - December 07 Monocytes 10.3 % 3.0 - 10.0 % High December 07 Lymphocytes 8.7 % 19.0 - 48.0 % Low December 07 MCHC 31.6 g/dL 30.0 - 36.0 g/dL - December 07, 2024 MCH 31.6 pg 27.0 - 31.0 pg High December 07 RDW 22.2 % 11.5 - 14.5 % High December 07 Eosinophil 2.6 % 0.0 - 7.0 % - December 07, 2024 COURTNEY 4.1 % 0.0 - 4.0 % High December 07, 2024 Basophils 0.6 % 0.0 - 1.5 % - December 07, 2024 RBC 2.78 mill/mcL 4.70 - 6.10 mill/mcL Low December 07, 2024 WBC (No Diff) 6.81 1000/mcL 4.80 - 10.80 1000/mcL - December 07, 2024 HCT 27.8 % 42.0 - 52.0 % Low December 07 HGB 8.8 g/dL 14.0 - 18.0 g/dL Low December 07, 2024 Platelets 186 1000/mcL 130 - 400 1000/mcL - December 07, 2024 Hemoglobin x 3 26.4 % 42.0 - 54.0 % Low December Metabolic/Renal Result Type Result Value Relevant Reference Range Interpre tation Date URR, Calc 71 % 65 - 80 % - September 12, 2024 Bicarbonate 23 mEq/L 20 - 31 mEq/L - September 12, 2024 BUN 75 mg/dL 6 - 19 mg/dL High September 12 Creatinine, Serum 7.18 mg/dL 0.60 - 1.30 mg/dL High September 12, 2024 BUN/Creat Ratio 10.4 10.0 - 20.0 - September Sodium 138 mEq/L 136 - 145 mEq/L - September 12, 2024 Potassium 5.1 mEq/L 3.5 - 5.1 mEq/L - September 12, 2024 Chloride 98 mEq/L 96 - 108 mEq/L - September 12, 2024 BUN, Post 22 mg/dL 6 - 19 mg/dL High September 12 Creatinine, Serum 5.82 mg/dL 0.60 - 1.30 mg/dL High October 12, 2024 BUN 96 mg/dL 6 - 19 mg/dL High October 12, 2024 Sodium 132 mEq/L 136 - 145 mEq/L Low October 12, 025 BUN/Creat Ratio 16.5 10.0 - 20.0 - October 12, 2024 Potassium 4.4 mEq/L 3.5 - 5.1 mEq/L - October 12 Bicarbonate 26 mEq/L 20 - 31 mEq/L - October 12 Chloride 94 mEq/L 96 - 108 mEq/L Low October 12 BUN 89 mg/dL 6 - 19 mg/dL High October 14, 2024 URR, Calc 70 % 65 - 80 % - October 14, 2024 BUN, Post 27 mg/dL 6 - 19 mg/dL High October 14, 2024 Chloride 88 mEq/L 96 - 108 mEq/L Low November 09, Bicarbonate 23 mEq/L 20 - 31 mEq/L - November 09 Sodium 126 mEq/L 136 - 145 mEq/L Low November 09, 2024 Potassium 5.0 mEq/L 3.5 - 5.1 mEq/L - November 09, 2024 BUN 79 mg/dL 6 - 19 mg/dL High November 09 Creatinine, Serum 6.10 mg/dL 0.60 - 1.30 mg/dL High November 09, 2024 BUN/Creat Ratio 13.0 10.0 - 20.0 - November 09, 2024 URR, Calc 70 % 65 - 80 % - November 09, 2024 BUN, Post 24 mg/dL 6 - 19 mg/dL High November 09 BUN 81 mg/dL 6 - 19 mg/dL High December 07 Creatinine, Serum 5.40 mg/dL 0.60 - 1.30 mg/dL High December 07, 2024 BUN/Creat Ratio 15.0 10.0 - 20.0 - December 07, 2024 URR, Calc 72 % 65 - 80 % - December 07, 2024 BUN, Post 23 mg/dL 6 - 19 mg/dL High December 07 HD Adequacy Result Type Result Value Relevant Referen ce Range Interpretation Date Krt/V 0.00 No Reference Ran ge Provided - June 15, 2024 Krt/V 0.00 No Reference Ran ge Provided - June 20, 2024 Krt/V 0.00 No Reference Ran ge Provided - July 13, 2024 Krt/V 0.00 No Reference Ran ge Provided - August 12, 2024 Krt/V 0.00 No Reference Ran ge Provided - August 26, 2024 wstdKt/V without residual 0.8 No Reference Range Provided - September 12, 2024 wstdKt/V, residual 0.0 No Reference Range Provided - September 12, 2024 spKt/V (Daugirdas II) 1.44 No Reference Range Provided - September 12, 2024 eKt/V ([place]) 1.23 No Reference Range Provided - September 12, 2024 wstdKt/V 0.8 No Reference Ran ge Provided - September 12, 2024 spKt/V Got 1.44 No Reference Ran ge Provided - October 14, 2024 eKt/V ([place]) 1.21 No Reference Range Provided - October 14, 2024 wstdKt/V 2.3 No Reference Ran ge Provided - October 14, 2024 Krt/V 0.00 No Reference Ran ge Provided - October 14, 2024 wstdKt/V without residual 2.3 No Reference Range Provided - October 14, 2024 wstdKt/V, residual 0.0 No Reference Range Provided - October 14, 2024 spKt/V (Daugirdas II) 1.41 No Reference Range Provided - October 14, 2024 wstdKt/V, residual 0.0 No Reference Range Provided - November 09, 2024 wstdKt/V without residual 2.3 No Reference Range Provided - November 09, 2024 wstdKt/V 2.3 No Reference Ran ge Provided - November 09, 2024 eKt/V ([place]) 1.20 No Reference Range Provided - November 09, 2024 spKt/V Gotch 1.41 No Reference Ran ge Provided - November 09, 2024 Krt/V 0.00 No Reference Ran ge Provided - November 09, 2024 spKt/V (Daugirdas II) 1.40 No Reference Range Provided - November 09, 2024 eKt/V ([place]) 1.30 No Reference Range Provided - December 07, 2024 wstdKt/V, residual 0.0 No Reference Range Provided - December 07, 2024 Krt/V 0.00 No Reference Ran ge Provided - December 07, 2024 wstdKt/V without residual 2.4 No Reference Range Provided - December 07, 2024 wstdKt/V 2.4 No Reference Ran ge Provided - December 07, 2024 spKt/V Gotch 1.57 No Reference Ran ge Provided - December 07, 2024 spKt/V (Daugirdas II) 1.52 No Reference Range Provided - December 07, 2024 Bone/Mineral Result Type Result Value Relevant Referen ce Range Interpretation Date Magnesium 2.1 mg/dL 1.6 - 2.6 mg/dL - January Magnesium 1.9 mg/dL 1.6 - 2.6 mg/dL - April 13, 2024 Vitamin D 25 Hydroxy 56.9 ng/mL 30.0 - 100.0 ng/mL - April 13, 2024 Magnesium 1.7 mg/dL 1.6 - 2.6 mg/dL - July 13, 2024 PTH-Intact, Plasma 168 pg/mL 16 - 80 pg/mL High Feb ruary 2024 Calcium, Total 9.5 mg/dL 8.7 - 10.4 mg/dL - 2024 Phosphorus 3.6 mg/dL 2.6 - 4.5 mg/dL - September 12, 2024 PTH-Intact, Plasma 189 pg/mL 16 - 80 pg/mL High Apr il 2024 Ca x P Product 34 0 - 54 - September 12, 2024 Corrected Ca x P Product 35 0 - 54 - September 12, 2024 Magnesium 2.1 mg/dL 1.6 - 2.6 mg/dL - September 12, 2024 Phosphorus 3.7 mg/dL 2.6 - 4.5 mg/dL - October 12, 025 Calcium, Total 9.3 mg/dL 8.7 - 10.4 mg/dL - October 12, 2024 Ca x P Product 34 0 - 54 - October 12, 20 25 Corrected Ca x P Product 36 0 - 54 - October 12, 2024 PTH-Intact, Plasma 221 pg/mL 16 - 80 pg/mL High October 17, 2024 Calcium, Total 10.0 mg/dL 8.7 - 10.4 mg/dL - November 09, 2024 Phosphorus 3.0 mg/dL 2.6 - 4.5 mg/dL - November 09, 2024 Ca x P Product 30 0 - November 09, 2 025 Corrected Ca x P Product 30 0 - November 09, 2024 Liver/Nutrition Result Type Result Value Relevant Reference Range Interpre tation Date Total Protein 7.4 g/dL 6.0 - 8.5 g/dL - September Albumin (BCG) 3.7 g/dL 3.5 - 5.2 g/dL - September Globulin (Calc) 3.7 g/dL 2.0 - 4.0 g/dL - September 12, 2024 A/G Ratio 1.0 1.0 - 2.0 - September 12, 2024 A/G Ratio 1.0 1.0 - 2.0 - October 12, 2024 Total Protein 6.9 g/dL 6.0 - 8.5 g/dL - October 12, 2024 Albumin (BCG) 3.5 g/dL 3.5 - 5.2 g/dL - October 12, 2024 Globulin (Calc) 3.4 g/dL 2.0 - 4.0 g/dL - October, 2024 eNPCR 1.41 No Reference Ran ge Provided - October 14, 2024 Albumin (BCG) 3.9 g/dL 3.5 - 5.2 g/dL - November Total Protein 7.5 g/dL 6.0 - 8.5 g/dL - November Globulin (Calc) 3.6 g/dL 2.0 - 4.0 g/dL - November 09, 2024 A/G Ratio 1.1 1.0 - 2.0 - November 09, 2024 eNPCR 1.17 No Reference Ran ge Provided - November 09, 2024 Total Protein 7.5 g/dL 6.0 - 8.5 g/dL - December Albumin (BCG) 4.0 g/dL 3.5 - 5.2 g/dL - December Globulin (Calc) 3.5 g/dL 2.0 - 4.0 g/dL - December 07, 2024 A/G Ratio 1.1 1.0 - 2.0 - December 07, 2024 eNPCR 1.29 No Reference Ran ge Provided - December 07, 2024 Immunochemistry Result Type Result Value Relevant Reference Range Interpre tation Date HCV s/co ratio < 0.02 0.00 - 0.79 - December 07, 2024 Trace Elements Result Type Result Value Relevant Reference Range Interpre tation Date Aluminum 8 mcg/L 0 - 10 mcg/L - April 13, 2024 Infectious Diseases Result Type Result Value Relevant Referen ce Range Interpretation Date Hep B Surface Ab (anti-HBs) 26 mIU/mL No Reference Range Provided - April 13, 2024 Hep B Surface Ag (HBsAg) Negative No Reference Range Provided - December 07, 2024 HCV Ab (anti-HCV) Nonreactive No Reference R martha Provided - December 07, 2024 DIALYSIS PRESCRIPTION Conventional Hemodialysis Data Element Value Order Date/Time October 26, 2024 Frequency 3X Week Treatment Days MonWedFri Dialyzer 180NRe Optiflux Treatment Time (Total Minutes) 210 min Blood Flow Rate (mL/min) 450 mL/min Dialysate Flow Rate Manual 800 Estimated Dry Weight 79.6 kg Dialysate Concentrate 3.0 K, 2.5 Ca, [...] March 23, 2023 0.5 mL Intramuscular Completed ClusterSeven COVID-19 Vac cine, Bivalent, Booster March 17, [...] Resuscitation status Full Code Darren Youssef Oct 04, 2024 DIALYSIS TREATMENTS Conventional Hemodialysis Date Pre-Treatment Vitals Post-Treatment Sylvia ls Duration (hr) BFR (mL/min) Dialysate Dialyzer Dialysis Access Meds Admin December 02, 2024 Weight 83.70 kg Weight 75.80 kg 03:21:00 450 3.0 K, 2.5 Ca, 1.0 Mg, 100 Dextrose (G3251) 180nre Optifl ux Blood Pressure-sitting 130/64 mmHg Blood Pressure-sit ting 103/72 mmHg Heart Rate 84 beats per minute Heart Rate 78 beats per minute Respiratory Rate 15 breaths per minute Respiratory Rate 14 breaths per minute Temperature 97.2 deg. F Temperature 97.8 deg. F December 05, 2024 Weight 80.50 kg Weight 82.00 kg 03:22:00 440 3.0 K, 2.5 Ca, 1.0 Mg, 100 Dextrose (G3251) 180nre Optiflux Hemodialysis-AV Fistula-Standard, Left Forearm, Other/Unknown - Blood Pressure-sitting 122/58 mmHg Blood Pressure-sit ting 118/48 mmHg Heart Rate 74 beats per minute Heart Rate 74 beats per minute Respiratory Rate 15 breaths per minute Respiratory Rate 16 breaths per minute Temperature 97.8 deg. F Temperature 97.7 deg. F December 07, 2024 Weight 86.20 kg Weight 82.00 kg 03:28:00 450 3.0 K, 2.5 Ca, 1.0 Mg, 100 Dextrose (G3251) 180nre Optiflux Hemodialysis-AV Fistula-Standard, Left Forearm, Other/Unknown Iron Sucrose (Venofer); 50mg,Intravenous - push Blood Pressure-sitting 122/62 mmHg Blood Pressure-sit ting 115/54 mmHg Heart Rate 84 beats per minute Heart Rate 71 beats per minute Respiratory Rate 18 breaths per minute Respiratory Rate 16 breaths per minute Temperature 98.3 deg. F Temperature 97.8 deg. F
--- OUTSIDE RECORDS SUMMARY | 2024-12-09 15:01 | XMS_ITS | Data Portability ---
Author Organization 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 Patient reports going for dialysis sessions. [email or web address] Not available 11/15/2020 13:42:00 Plan of Treatment Reminders Order Date Submit Date Provider Last Modified By Organization Details Last Modified Time Details Appointments None recorded. Lab culture, urine 2020 021 [facility], [address], [address], [place], [address], 10:10:11 Referral None recorded. Procedures None recorded. Surgeries None recorded. Imaging None recorded. Medication Orders Cipro 500 mg tablet 2020 021 [email or web address] [id number], [address] [place], [place], [phone], 2 12:21:55 Levaquin 250 mg tablet 2020 021 [email or web address] [id number], [address] [place], [place], [phone], 12:23:07 Patient TargetsNo targets recorded. Patient Instructions Encounter Date Encounter Id Patient Instructions Last Modified By Organization Details Last Modified Time 11/15/2020 [id number] Patient is to follow up with provider. [email or web address] Not available 11/15/2020 17:00:25 Reason for Referral [...] ate 1) Sensi t[facility] [place] te 1 ----- ----- ----- ----- ----- [...] s Desk [facility]. S= Susce ptibl e;I= Inter media te;R= Resis tant; ESBL= Resis tance due to confi rmed ESBL Not Available [facility] [address] [place] [address] [address], [place], [address], 11/01/2020 10:10:11 10/30/19 21 10/18/2020 CT, abdom en + pelvi s, w/ contr ast No observ ation record ed. [email or web address] Not Available 2020 09:31:35 Result Notes None recorded. Problems Name Problem SNOMED Code Status Onset Date Resolution Date Notes Provider Name and Address Organization Details Recorded Time Blood in urine 04168600 Active 021 Marvin Robbins MD [address] [place] [address],[facility] [address], [place], [address], [facility] 10/30/2020 16:27:48 Problem Notes None recorded. Procedures Surgical History Date Name Laterality Status Provider Name and Address Organization Details Recorded Time 12/21/19 21 CystoscopyMale completed Marvin Robbins MD [address] [place] [address],[address], [place], [address], [facility] 12/20/2020 14:14:08 11/16/19 21 Torre Catheter Insertion completed [facility] 11/15/2020 17:05:13 11/16/19 21 Fill and Pull/Voiding Trial/TOV completed [facility] 11/15/2020 17:05:22 10/31/19 21 CystoscopyMale completed Marvin Robbins MD [address] [place] [address],[address], [place], [address], [facility] 10/30/2020 17:55:08 Cardiac Surgery completed Marvin Robbins MD [address] [place] [address],[facility] [address], [place], [address], [facility] 10/30/2020 16:31:03 Cataract Surgery completed Denny Robbins MD [address] [place] [address],[address], [place], [address], [facility] 10/30/2020 16:31:33 Colonoscopy completed Marvin Robbins MD [address] [place] [address],[address], [place], [address], [facility] 10/30/2020 16:31:42 Heart Surgery completed Marvin Robbins MD [address] [place] [address],[address], [place], [address], [facility] 10/30/2020 16:31:50 Orthopedic Surgery completed Cris Robbins MD [address] [place] [address],[address], [place], [address], [facility] 10/30/2020 16:31:56 Imaging Results None recorded. Procedure Notes None recorded. Medical Equipment None Reported. Allergies Allergen ID Allergen Name Allergen Category Reaction Reaction Severity Criticality Documentation Date Start Date Code Code System Note Provider Name and Address Organization Details Recorded Time 672455 Lipitor medicatio n Not available Not available Not available 10/30/2020 28173 5 RxNorm Marvin Robbins MD [address] [place] [address],[address] [place] [address], [address], [facility] 16:21:35 174916 lisinopri l medicatio n Not available Not available Not available 10/30/2020 18389 RxNorm Marvin Robbins MD [address] [place] [address],[address] [place] [address], [address], [facility] 1 16:21:45 906087 metoclopr amide Not available Not available Not available Not available 10/30/2020 6915 RxPedro Robbins MD [address] [place] [address],[address], [place], [address], [facility] 16:21:54 964480 Reglan medicatio n Not available Not available Not available 10/30/2020 9230 RxPedro Robbins MD [address] [place] [address],[address], [place], [address], [facility] 16:22:02 993214 omeprazol e medicatio n Not available Not available Not available 10/30/2020 7646 RxNorm Marvin Robbins MD [address] [facility],[place] [address], [place], [address] , [facility] 16:22:11 Medications Name Sig Start Date Stop Date [...] Not Available Not Available No t Available Diflucan 50 mg tablet Take 1 tablet every other day by oral route for 10 days. 01/28 completed Not Available Not Available Not Available brimonidine 0.2 % eye drops INT [...] Available Vitals Date Recorded Body height Body mass index (BMI) Body weight Provider Name and Address Organization Details Last Updated DateTime 10/30/2020 182.88 cm 30.4 kg/m2 397629.69 g Marvin Robbins MD [address] [place] [address], [address] 10/30/2020 16:21:14 Date Recorded Body height Provider Name an d Address Organization Details Last Updated DateTime 11/15/[address] [facility] 11/15/2020 17:16:37 Date Recorded Body height Body mass index (BMI) Body weight Provider Name and Address Organization Details Last Updated DateTime 12/20/2020 182.88 cm 30.4 kg/m2 753651.[address] [facility] 12/20/2020 12:22:55 Date Recorded Body height Body weight Provider Name and Address Organization Details Last Updated DateTime 01/28/2022 182.88 cm 95814.84 g Eriberto Yip MD [address] [place] [address],[address], [address], [facility] 01/28/2022 12:21:20 Social History Question Answer Notes LastModified by Organizat ion Details LastModified Time Tobacco Smoking Status Former Smoker Marvin Robbins MD [address] [facility],[address], [place], [address], [facility] 10/30/2020 16:29:31 What Is Your Level Of Caffeine Consumption? Moderate Information not available 10/30/2020 How Much Tobacco Do You Chew? None Information not available 10/30/2020 When Did You Quit Smoking? 16+yearssince lastcigarette Information not available 10/30/2020 Race White Information no t available 10/30/2020 Ethnicity Not /Lati no Information not available 10/30/2020 Preferred Language Hong Konger Information not available 10/30/2020 Marital Status Informatio n not available 10/30/2020 What Was The Date Of Your Most Recent Tobacco Screening? 01/28/2022 [email or web address] Information not available 01/28/2022 How Much Tobacco Do You Smoke? No Information not available 10/30/2020 How Many Years Have You Smoked Tobacco? 20 Information not available 10/30/2020 Sex: Unknown Functional Status Question Answer Note LastModified by Organizat ion Details LastModified Time What is your level of alcohol consumption? Occasional Information not available 10/30/2020 Do you or have you ever used smokeless tobacco? Never used smokeless tobacco Information not available 10/30/2020 Do you or have you ever used e-cigarettes or vape? Never used electronic cigarettes Information not available 10/30/2020 Mental Status None recorded. Family History Relationship [...] 16:28:52 Medical History Condition Response Diabetes Y Heart Disease Y High Blood Pressure Y Lung Disease Y High Cholesterol Y Immunizations Vaccine Type Date Status Note Provider Moreno e and Address Organization Details Recorded Time Pneumococcal conjugate PCV 13 5 completed Marvin Robbins MD [address] [facility],[address], [place], [address], [place] [facility] 10/30/2020 16:27:27 Past Encounters Encounter ID Performer Location Encounter Start Date Encounter Closed Date Diagnosis/Indication Diagnosis SNOMED-CT Code Diagnosis ICD10 Code Diagnosis Note [id number] MD [facility] [address] [place] [address] 10/30/2020 15:45:07 11/01/2020 12:51:51 Acute cystitis 15601282 N30.01 Voiding trial in 3 weeks Pyocystis 041473270 N30. 80 Torre for 2-3 weeks for drainagewo uld consider a voiding trial and cysto in 2-3 weeksAbx for pyocystis [id number] MD [facility] [address] [place] [address] 11/15/2020 12:21:28 11/19/2020 11:48:02 Retention of urine 068920225 R33.9 [id number] Marvin Robbins MD [facility] [address] [place] [address] 12/20/2020 11:53:14 12/21/2020 15:08:02 Blood in urine 29393125 R31.9 H/o pyocystisC IC at the time of dialysisf/ u in 3 months [id number] Eriberto Yip MD [facility] [address] [place] [address] 01/28/2022 11:55:03 01/31/2022 10:21:56 Retention of urine 821776817 R33.9 1. Urinary retention- has large capacity bladder- makes very little urine- continue weekly catheteriz ation (with Gentamicin bladder washing)- Follow-up in 1 year Cystitis 18486841 N30.90 2. Recurrent cystitis- continue Gentamicin bladder [...] Recorded Advance Directives Directive None Recorded Payers Insurance Date Sequence Insurance Name Policy Number Policy Blanchard Covered Member ID Blanchard Member ID Guarantor Name 11/15/2020 1 [employer] - MEDICARE-[address] [employer] (MEDICARE) Korey Mackay [id number] Korey Mackay 11/15/2020 1 [place] [employer] [facility] Korey Mackay [id number] Korey Mackay 01/31/2022 2 [facility] Korey Mackay [id number] Korey Mackay 11/15/2020 1 [facility] (MEDICARE REPLACEMENT PPO) Korey Mackay [id number] Korey Mackay 11/15/2020 2 [facility] (MEDICARE SUPPLEMENT) 59 Korey Mackay [id number] Korey Mackay 01/25/2022 1 [facility] MEDIC[facility]-[address] [employer]ARD (MEDICARE) Korey Mackay [id number] Korey Mackay Notes Date Note Type Note [...] and irrigate the bladder. Marvin Robbins MD [address] [facility],[address], [place], [address], [facility] 10/30/2020 17:55:38 12/20/2020 text/html H/p intermittent gross hematuria in the past 3 weeks; on HD for ESRD. According to the patient he does not make urine ( 30 cc a day).He was admitted to the hospital times 2 with elevated PVR ( 500cc) and Pyocystis. His cysto today showed normal bladder mucosa; small prostate; failed a voiding trial. Marvin Robbins MD [address] [facility],[address], [place], [address], [facility] 12/20/2020 14:15:23 01/28/2022 text/html 81 yo [...] or hematuria.-------- - Eriberto Yip MD [address] [facility],[address], [place], [address], [facility] 01/28/2022 13:29:56
--- OUTSIDE RECORDS SUMMARY | 2024-12-09 15:01 | XMS_ITS ---
Author Organization [facility] ([facility]) Address [address] [place] [id number] Care Team Providers Care Unit Support Representative Name Role Phone Unavailable Unavailable Unavailable Allergies, [...] degF September 30, 2023 In-Center Hemodialysis Treatment [id number]:26:00.000Z 3568-13-02S75:59:31.000Z BP Sitting (Pre-Dialysis) 136/71 mmHg BP Sitting (Post-Dialysis) 138/73 mmHg Concurrent Access: falseAV Fistula Forearm (Left) Arterial Sitting Heart Rate Pre-Dialysis 88 BPM Sitting H eart Rate Post-Dialysis 72 BPM Temperature Pre-Dialysis 98.1 degF Temperature Post -Dialysis 98 degF September 28, 2023 In-Center Hemodialysis Treatment [id number]:37:55.000Z 6080-38-63U85:11:26.000Z BP Sitting (Pre-Dialysis) 125/66 mmHg BP Sitting [...] degF September 25, 2023 In-Center Hemodialysis Treatment 7954-87-61A60:24:00.000Z 5121-33-68U76:58:33.000Z BP Sitting (Pre-Dialysis) 137/69 mmHg BP Sitting [...] degF September 23, 2023 In-Center Hemodialysis Treatment 8829-47-37B51:27:00.000Z 8231-60-89V21:02:39.000Z BP Sitting (Pre-Dialysis) 124/57 mmHg BP Sitting (Post-Dialysis) 115/62 mmHg Concurrent Access: falseAV Fistula Forearm (Left) Arterial Sitting Heart Rate Pre-Dialysis 77 BPM BP Standing (Post-Dialysis) 100/54 mmHg Temperature Pre-Dialysis 97.3 degF Sitting Heart Ra te Post-Dialysis 70 BPM Standing Heart Rate Post-Marlys lysis 71 BPM Temperature Post-Dialysis 97 .6 degF September 21, 2023 In-Center Hemodialysis Treatment 3928-51-46Q99:10:36.000Z 5755-79-37H49:58:01.000Z BP Sitting (Pre-Dialysis) 149/68 mmHg BP Sitting [...] degF September 18, 2023 In-Center Hemodialysis Treatment 2776-25-14F57:22:15.000Z 8005-74-48B88:55:15.000Z BP Sitting (Pre-Dialysis) 114/61 mmHg BP Sitting (Post-Dialysis) 102/55 mmHg Concurrent Access: falseAV Fistula Forearm (Left) Arterial Sitting Heart Rate Pre-Dialysis 90 BPM Sitting H eart Rate Post-Dialysis 72 BPM Temperature Pre-Dialysis 97 degF Temperature Post -Dialysis 97.6 degF September 16, 2023 In-Center Hemodialysis Treatment 9094-24-55J55:26:00.000Z 1784-08-14W06:02:03.000Z BP Sitting (Pre-Dialysis) 124/57 mmHg BP Sitting (Post-Dialysis) 121/72 mmHg Concurrent Access: falseAV Fistula Forearm (Left) Arterial BP Standing (Pre-Dialysis) 113/54 mmHg Sitti ng Heart Rate Post-Dialysis 73 BPM Sitting Heart Rate Pre-Dialysis 89 BPM Temperatu re Post-Dialysis 97.6 degF Standing Heart Rate Pre-Dialysis 93 BPM Temperature Pre-Dialysis 97 degF September 14, 2023 In-Center Hemodialysis Treatment 7311-78-72F15:27:00.000Z 5246-77-12Q34:03:29.000Z BP Sitting (Pre-Dialysis) 178/79 mmHg BP Sitting (Post-Dialysis) 148/58 mmHg Concurrent Access: falseAV Fistula Forearm (Left) Arterial Sitting Heart Rate Pre-Dialysis 72 BPM BP Standi ng (Post-Dialysis) 151/83 mmHg Temperature Pre-Dialysis 97 degF Sitting Heart Ra te Post-Dialysis 64 BPM Standing Heart Rate Post-Marlys lysis 71 BPM Temperature Post-Dialysis 97 .8 degF September 11, 2023 In-Center Hemodialysis Treatment 6070-25-69O01:20:00.000Z 1529-86-80K36:08:57.000Z BP Sitting (Pre-Dialysis) 139/61 mmHg BP Sitting (Post-Dialysis) 103/60 mmHg Concurrent Access: falseAV Fistula Forearm (Left) Arterial BP Standing (Pre-Dialysis) 111/56 mmHg Sitti ng Heart Rate Post-Dialysis 73 BPM Sitting Heart Rate Pre-Dialysis 80 BPM Temperatu re Post-Dialysis 97.6 degF Standing Heart Rate Pre-Dialysis 91 BPM Temperature Pre-Dialysis 97.8 degF September 09, 2023 In-Center Hemodialysis Treatment 7899-20-13O79:15:00.000Z 1899-80-76I85:51:23.000Z BP Sitting (Pre-Dialysis) 100/55 mmHg BP Sitting (Post-Dialysis) 143/73 mmHg Concurrent Access: falseAV Fistula Forearm (Left) Arterial Sitting Heart Rate Pre-Dialysis 62 BPM Sitting H eart Rate Post-Dialysis 71 BPM Temperature Pre-Dialysis 98.1 degF Temperature Post -Dialysis 97.8 degF September 07, 2023 In-Center Hemodialysis Treatment [id number]:19:00.000Z 5931-19-77I80:54:49.000Z BP Sitting (Pre-Dialysis) 142/66 mmHg BP Sitting (Post-Dialysis) 110/58 mmHg Concurrent Access: falseAV Fistula Forearm (Left) Arterial Sitting Heart Rate Pre-Dialysis 90 BPM BP Standi ng (Post-Dialysis) 103/62 mmHg Temperature Pre-Dialysis 97 degF Sitting Heart Ra te Post-Dialysis 64 BPM Standing Heart Rate Post-Marlys lysis 80 BPM Temperature Post-Dialysis 97 .8 degF September 04, 2023 In-Center Hemodialysis Treatment 2150-74-93D98:21:46.000Z 4070-77-42F44:58:42.000Z BP Sitting (Pre-Dialysis) 119/61 mmHg BP Sitting (Post-Dialysis) 115/75 mmHg Concurrent Access: falseAV Fistula Forearm (Left) Arterial Sitting Heart Rate Pre-Dialysis 68 BPM BP Standing (Post-Dialysis) 105/55 mmHg Temperature Pre-Dialysis 97.8 degF Sitting Heart Ra te Post-Dialysis 74 BPM Standing Heart Rate Post-Marlys lysis 80 BPM Temperature Post-Dialysis 98 degF September 02, 2023 In-Center Hemodialysis Treatment 4960-70-91E52:19:00.000Z 8083-40-70L24:53:03.000Z BP Sitting (Pre-Dialysis) 127/64 mmHg BP Sitting (Post-Dialysis) 141/72 mmHg Concurrent Access: falseAV Fistula Forearm (Left) Arterial Sitting Heart Rate Pre-Dialysis 91 BPM BP Standi ng (Post-Dialysis) 128/61 mmHg Temperature Pre-Dialysis 98 degF Sitting Heart Ra te Post-Dialysis 72 BPM Standing Heart Rate Post-Marlys lysis 70 BPM Temperature Post-Dialysis 97 .6 degF August 31, 2023 In-Center Hemodialysis Treatment 8170-04-21V02:17:00.000Z 3841-51-50F00:56:17.000Z BP Sitting (Pre-Dialysis) 144/74 mmHg BP Sitting (Post-Dialysis) 118/58 mmHg Concurrent Access: falseAV Fistula Forearm (Left) Arterial BP Standing (Pre-Dialysis) 114/60 mmHg Sitti ng Heart Rate Post-Dialysis 64 BPM Sitting Heart Rate Pre-Dialysis 88 BPM Temperatu re Post-Dialysis 97.8 degF Standing Heart Rate Pre-Dialysis 93 BPM Temperature Pre-Dialysis 98.1 degF August 28, 2023 In-Center Hemodialysis Treatment 8022-70-36C70:14:00.000Z 9997-09-48S29:48:54.000Z BP Sitting (Pre-Dialysis) 120/67 mmHg BP Sitting [...] degF August 26, 2023 In-Center Hemodialysis Treatment 7797-06-07V28:23:00.000Z 8547-01-14P65:56:23.000Z BP Sitting (Pre-Dialysis) 122/81 mmHg BP Sitting [...] degF August 24, 2023 In-Center Hemodialysis Treatment 3127-40-49D21:27:00.000Z 9590-21-97L62:01:59.000Z BP Sitting (Pre-Dialysis) 124/63 mmHg BP Sitting (Post-Dialysis) 128/66 mmHg Concurrent Access: falseAV Fistula Forearm (Left) Arterial Sitting Heart Rate Pre-Dialysis 89 BPM BP Standi ng (Post-Dialysis) 120/56 mmHg Temperature Pre-Dialysis 97 degF Sitting Heart Ra te Post-Dialysis 73 BPM Standing Heart Rate Post-Marlys lysis 80 BPM Temperature Post-Dialysis 98 degF August 21, 2023 In-Center Hemodialysis Treatment 1270-38-48O84:19:00.000Z 3443-75-85L18:56:13.000Z BP Sitting (Pre-Dialysis) 155/77 mmHg BP Sitting (Post-Dialysis) 130/60 mmHg Concurrent Access: falseAV Fistula Forearm (Left) Arterial Sitting Heart Rate Pre-Dialysis 78 BPM BP Standi ng (Post-Dialysis) 114/54 mmHg Temperature Pre-Dialysis 98 degF Sitting Heart Ra te Post-Dialysis 73 BPM Standing Heart Rate Post-Marlys lysis 73 BPM Temperature Post-Dialysis 98 degF August 19, 2023 In-Center Hemodialysis Treatment 4802-99-75D99:28:45.000Z 9651-26-20O97:01:30.000Z BP Sitting (Pre-Dialysis) 150/76 mmHg BP Sitting [...] degF August 17, 2023 In-Center Hemodialysis Treatment 4248-96-13W77:21:05.000Z 2138-59-47W38:52:40.000Z BP Sitting (Pre-Dialysis) 139/74 mmHg BP Sitting [...] degF August 14, 2023 In-Center Hemodialysis Treatment 8694-74-93P60:15:40.000Z 3940-06-03S47:47:00.000Z BP Sitting (Pre-Dialysis) 118/66 mmHg BP Sitting (Post-Dialysis) 136/71 mmHg Concurrent Access: falseAV Fistula Forearm (Left) Arterial Sitting Heart Rate Pre-Dialysis 93 BPM Sitting H eart Rate Post-Dialysis 72 BPM Temperature Pre-Dialysis 98.1 degF Temperature Post -Dialysis 98.2 degF August 12, 2023 In-Center Hemodialysis Treatment 7616-73-16X69:39:00.000Z 5821-80-50D26:18:02.000Z BP Sitting (Pre-Dialysis) 141/82 mmHg BP Sitting [...] degF August 10, 2023 In-Center Hemodialysis Treatment 0588-32-65D56:28:19.000Z 7806-83-46A53:18:15.000Z BP Sitting (Pre-Dialysis) 141/81 mmHg BP Sitting (Post-Dialysis) 154/79 mmHg Concurrent Access: falseAV Fistula Forearm (Left) Arterial Sitting Heart Rate Pre-Dialysis 94 BPM BP Standi ng (Post-Dialysis) 141/69 mmHg Temperature Pre-Dialysis 98 degF Sitting Heart Ra te Post-Dialysis 70 BPM Standing Heart Rate Post-Marlys lysis 79 BPM Temperature Post-Dialysis 97 .6 degF August 07, 2023 In-Center Hemodialysis Treatment 3748-04-80H77:16:00.000Z 1745-56-36A94:00:11.000Z BP Sitting (Pre-Dialysis) 128/66 mmHg BP Sitting (Post-Dialysis) 170/85 mmHg Concurrent Access: falseAV Fistula Forearm (Left) Arterial Sitting Heart Rate Pre-Dialysis 93 BPM BP Standing (Post-Dialysis) 131/59 mmHg Temperature Pre-Dialysis 97.8 degF Sitting Heart Ra te Post-Dialysis 70 BPM Standing Heart Rate Post-Marlys lysis 80 BPM Temperature Post-Dialysis 97 degF August 05, 2023 In-Center Hemodialysis Treatment 5437-43-87D84:18:39.000Z 8986-60-65L21:51:43.000Z BP Sitting (Pre-Dialysis) 149/74 mmHg BP Sitting [...] degF August 03, 2023 In-Center Hemodialysis Treatment 3288-62-60U99:17:00.000Z 5972-64-61S92:50:56.000Z BP Sitting (Pre-Dialysis) 151/71 mmHg BP Sitting (Post-Dialysis) 148/73 mmHg Concurrent Access: falseAV Fistula Forearm (Left) Arterial Sitting Heart Rate Pre-Dialysis 88 BPM BP Standing (Post-Dialysis) 125/66 mmHg Temperature Pre-Dialysis 98.4 degF Sitting Heart Ra te Post-Dialysis 72 BPM Standing Heart Rate Post-Marlys lysis 69 BPM Temperature Post-Dialysis 98 .3 degF July 31, 2023 In-Center Hemodialysis Treatment 7187-29-93D43:08:21.000Z 6708-83-96K10:44:52.000Z BP Sitting (Pre-Dialysis) 125/71 mmHg BP Sitting [...] degF July 29, 2023 In-Center Hemodialysis Treatment 0233-07-43L81:56:12.000Z 8604-10-35K02:27:42.000Z BP Sitting (Pre-Dialysis) 159/63 mmHg BP Sitting (Post-Dialysis) 140/66 mmHg Concurrent Access: falseAV Fistula Forearm (Left) Arterial Sitting Heart Rate Pre-Dialysis 95 BPM BP Standi ng (Post-Dialysis) 128/52 mmHg Temperature Pre-Dialysis 98 degF Sitting Heart Ra te Post-Dialysis 70 BPM Standing Heart Rate Post-Marlys lysis 77 BPM Temperature Post-Dialysis 97 .4 degF July 27, 2023 In-Center Hemodialysis Treatment 9570-74-93M81:19:00.000Z 2691-04-96L50:57:44.000Z BP Sitting (Pre-Dialysis) 106/45 mmHg BP Sitting (Post-Dialysis) 140/71 mmHg Concurrent Access: falseAV Fistula Forearm (Left) Arterial Sitting Heart Rate Pre-Dialysis 91 BPM BP Standi ng (Post-Dialysis) 138/58 mmHg Temperature Pre-Dialysis 98 degF Sitting Heart Ra te Post-Dialysis 70 BPM Standing Heart Rate Post-Marlys lysis 64 BPM Temperature Post-Dialysis 97 .8 degF July 24, 2023 In-Center Hemodialysis Treatment 7805-13-20D48:08:00.000Z 0539-75-76F80:50:25.000Z BP Sitting (Pre-Dialysis) 129/67 mmHg BP Sitting (Post-Dialysis) 145/75 mmHg Concurrent Access: falseAV Fistula Forearm (Left) Arterial Sitting Heart Rate Pre-Dialysis 80 BPM BP Standi ng (Post-Dialysis) 119/62 mmHg Temperature Pre-Dialysis 98 degF Sitting Heart Ra te Post-Dialysis 72 BPM Standing Heart Rate Post-Marlys lysis 73 BPM Temperature Post-Dialysis 97 .7 degF July 22, 2023 In-Center Hemodialysis Treatment 5369-92-03R04:13:00.000Z 6254-21-97A68:45:00.000Z BP Sitting (Pre-Dialysis) 129/63 mmHg BP Sitting (Post-Dialysis) 137/75 mmHg Concurrent Access: falseAV Fistula Forearm (Left) Arterial Sitting Heart Rate Pre-Dialysis 93 BPM Sitting H eart Rate Post-Dialysis 73 BPM Temperature Pre-Dialysis 98.1 degF Temperature Post -Dialysis 98.5 degF July 20, 2023 In-Center Hemodialysis Treatment 9752-13-56R66:35:23.000Z 5122-28-07L49:10:08.000Z BP Sitting (Pre-Dialysis) 138/66 mmHg BP Sitting [...] degF July 17, 2023 In-Center Hemodialysis Treatment 6314-82-55D58:25:00.000Z 8338-36-84J92:59:00.000Z BP Sitting (Pre-Dialysis) 179/92 mmHg BP Sitting (Post-Dialysis) 132/67 mmHg Concurrent Access: falseAV Fistula Forearm (Left) Arterial Sitting Heart Rate Pre-Dialysis 73 BPM BP Standi ng (Post-Dialysis) 126/60 mmHg Temperature Pre-Dialysis 98 degF Sitting Heart Ra te Post-Dialysis 71 BPM Standing Heart Rate Post-Marlys lysis 71 BPM Temperature Post-Dialysis 97 .5 degF July 15, 2023 In-Center Hemodialysis Treatment 0031-14-59O88:13:00.000Z 5681-78-01T16:55:05.000Z BP Sitting (Pre-Dialysis) 114/44 mmHg BP Sitting (Post-Dialysis) 141/84 mmHg Concurrent Access: falseAV Fistula Forearm (Left) Arterial Sitting Heart Rate Pre-Dialysis 74 BPM BP Standi ng (Post-Dialysis) 124/63 mmHg Temperature Pre-Dialysis 98 degF Sitting Heart Ra te Post-Dialysis 73 BPM Standing Heart Rate Post-Marlys lysis 70 BPM Temperature Post-Dialysis 98 .1 degF July 13, 2023 In-Center Hemodialysis Treatment 8070-51-09F16:18:00.000Z 6370-26-49H58:51:01.000Z BP Sitting (Pre-Dialysis) 166/86 mmHg BP Sitting (Post-Dialysis) 165/85 mmHg Concurrent Access: falseAV Fistula Forearm (Left) Arterial Sitting Heart Rate Pre-Dialysis 90 BPM BP Standing (Post-Dialysis) 122/63 mmHg Temperature Pre-Dialysis 97.3 degF Sitting Heart Ra te Post-Dialysis 71 BPM Standing Heart Rate Post-Marlys lysis 71 BPM Temperature Post-Dialysis 98 .3 degF July 10, 2023 In-Center Hemodialysis Treatment 9760-43-36Q13:07:00.000Z 2378-35-95A56:50:57.000Z BP Sitting (Pre-Dialysis) 91/41 mmHg BP Sitting (Post-Dialysis) 130/64 mmHg Concurrent Access: falseAV Fistula Forearm (Left) Arterial Sitting Heart Rate Pre-Dialysis 92 BPM BP Standing (Post-Dialysis) 120/66 mmHg Temperature Pre-Dialysis 97.8 degF Sitting Heart Ra te Post-Dialysis 74 BPM Standing Heart Rate Post-Marlys lysis 72 BPM Temperature Post-Dialysis 97 degF July 08, 2023 In-Center Hemodialysis Treatment 9381-04-38R38:36:00.000Z 6515-59-03N31:07:46.000Z BP Sitting (Pre-Dialysis) 144/72 mmHg BP Sitting (Post-Dialysis) 127/54 mmHg Concurrent Access: falseAV Fistula Forearm (Left) Arterial Sitting Heart Rate Pre-Dialysis 92 BPM BP Standi ng (Post-Dialysis) 130/66 mmHg Temperature Pre-Dialysis 97 degF Sitting Heart Ra te Post-Dialysis 80 BPM Standing Heart Rate Post-Marlys lysis 82 BPM Temperature Post-Dialysis 97 .9 degF July 06, 2023 In-Center Hemodialysis Treatment 6176-87-10D23:20:00.000Z 0912-36-44U06:53:00.000Z BP Sitting (Pre-Dialysis) 141/70 mmHg BP Sitting (Post-Dialysis) 162/77 mmHg Concurrent Access: falseAV Fistula Forearm (Left) Arterial Sitting Heart Rate Pre-Dialysis 87 BPM Sitting H eart Rate Post-Dialysis 67 BPM Temperature Pre-Dialysis 98 degF Temperature Post -Dialysis 97.9 degF July 03, 2023 In-Center Hemodialysis Treatment 5863-02-93W60:09:00.000Z 4682-54-50Y98:41:05.000Z BP Sitting (Pre-Dialysis) 128/58 mmHg BP Sitting [...] degF July 01, 2023 In-Center Hemodialysis Treatment 4116-32-84M76:26:00.000Z 8900-47-95S82:58:50.000Z BP Sitting (Pre-Dialysis) 106/56 mmHg BP Sitting (Post-Dialysis) 163/79 mmHg Concurrent Access: falseAV Fistula Forearm (Left) Arterial Sitting Heart Rate Pre-Dialysis 93 BPM BP Standing (Post-Dialysis) 122/62 mmHg Temperature Pre-Dialysis 98.2 degF Sitting Heart Ra te Post-Dialysis 71 BPM Standing Heart Rate Post-Marlys lysis 74 BPM Temperature Post-Dialysis 97 .7 degF June 29, 2023 In-Center Hemodialysis Treatment 6962-64-79W43:24:00.000Z 7528-15-91H07:01:13.000Z BP Sitting (Pre-Dialysis) 144/81 mmHg BP Sitting (Post-Dialysis) 158/64 mmHg Concurrent Access: falseAV Fistula Forearm (Left) Arterial Sitting Heart Rate Pre-Dialysis 88 BPM BP Standi ng (Post-Dialysis) 111/73 mmHg Temperature Pre-Dialysis 97 degF Sitting Heart Ra te Post-Dialysis 70 BPM Standing Heart Rate Post-Marlys lysis 82 BPM Temperature Post-Dialysis 97 .8 degF June 26, 2023 In-Center Hemodialysis Treatment 7235-87-66W21:22:00.000Z 9965-54-67D67:23:52.000Z BP Sitting (Pre-Dialysis) 120/58 mmHg BP Sitting [...] degF June 24, 2023 In-Center Hemodialysis Treatment 6113-87-92Z38:02:00.000Z 8565-17-85H22:35:52.000Z BP Sitting (Pre-Dialysis) 99/50 mmHg BP Sitting (Post-Dialysis) 132/64 mmHg Concurrent Access: falseAV Fistula Forearm (Left) Arterial Sitting Heart Rate Pre-Dialysis 89 BPM Sitting H eart Rate Post-Dialysis 70 BPM Temperature Pre-Dialysis 97 degF Temperature Post -Dialysis 97.9 degF June 22, 2023 In-Center Hemodialysis Treatment 0960-55-33F78:09:00.000Z 9348-59-58R59:43:24.000Z BP Sitting (Pre-Dialysis) 107/52 mmHg BP Sitting (Post-Dialysis) 160/78 mmHg Concurrent Access: falseAV Fistula Forearm (Left) Arterial Sitting Heart Rate Pre-Dialysis 85 BPM BP Standing (Post-Dialysis) 154/64 mmHg Temperature Pre-Dialysis 98.5 degF Sitting Heart Ra te Post-Dialysis 64 BPM Standing Heart Rate Post-Marlys lysis 70 BPM Temperature Post-Dialysis 97 .8 degF June 19, 2023 In-Center Hemodialysis Treatment 0840-20-86O45:54:00.000Z 5101-71-12O90:26:05.000Z BP Sitting (Pre-Dialysis) 161/84 mmHg BP Sitting (Post-Dialysis) 128/72 mmHg Concurrent Access: falseAV Fistula Forearm (Left) Arterial Sitting Heart Rate Pre-Dialysis 71 BPM Sitting H eart Rate Post-Dialysis 71 BPM Temperature Pre-Dialysis 98 degF Temperature Post -Dialysis 97.4 degF June 17, 2023 In-Center Hemodialysis Treatment 0424-13-71H41:33:24.000Z 0570-49-44K13:06:25.000Z BP Sitting (Pre-Dialysis) 105/52 mmHg BP Sitting (Post-Dialysis) 178/164 mmHg Concurrent Access: falseAV Fistula Forearm (Left) Arterial Sitting Heart Rate Pre-Dialysis 93 BPM BP Standing (Post-Dialysis) 104/57 mmHg Temperature Pre-Dialysis 97.4 degF Sitting Heart Ra te Post-Dialysis 70 BPM Standing Heart Rate Post-Marlys lysis 71 BPM Temperature Post-Dialysis 98 .3 degF June 15, 2023 In-Center Hemodialysis Treatment 5284-11-81A34:57:00.000Z 2498-65-56I46:38:14.000Z BP Sitting (Pre-Dialysis) 127/62 mmHg BP Sitting (Post-Dialysis) 110/58 mmHg Concurrent Access: falseAV Fistula Forearm (Left) Arterial Sitting Heart Rate Pre-Dialysis 89 BPM BP Standing (Post-Dialysis) 112/58 mmHg Temperature Pre-Dialysis 97.8 degF Sitting Heart Ra te Post-Dialysis 64 BPM Standing Heart Rate Post-Marlys lysis 64 BPM Temperature Post-Dialysis 97 .8 degF June 12, 2023 In-Center Hemodialysis Treatment 5992-67-29L14:21:00.000Z 9566-37-46G08:52:14.000Z BP Sitting (Pre-Dialysis) 133/65 mmHg BP Sitting (Post-Dialysis) 124/67 mmHg Concurrent Access: falseAV Fistula Forearm (Left) Arterial Sitting Heart Rate Pre-Dialysis 85 BPM Sitting H eart Rate Post-Dialysis 66 BPM Temperature Pre-Dialysis 98.2 degF Temperature Post -Dialysis 97.2 degF June 10, 2023 In-Center Hemodialysis Treatment 1584-40-05N61:59:00.000Z 8917-77-53V45:36:54.000Z BP Sitting (Pre-Dialysis) 116/50 mmHg BP Sitting [...] degF June 08, 2023 In-Center Hemodialysis Treatment 9680-72-37U90:44:00.000Z 1152-48-18O95:24:16.000Z BP Sitting (Pre-Dialysis) 154/102 mmHg BP Sitting (Post-Dialysis) 114/66 mmHg Concurrent Access: falseAV Fistula Forearm (Left) Arterial Sitting Heart Rate Pre-Dialysis 88 BPM BP Standing (Post-Dialysis) 114/52 mmHg Temperature Pre-Dialysis 98.1 degF Sitting Heart Ra te Post-Dialysis 73 BPM Standing Heart Rate Post-Marlys lysis 77 BPM Temperature Post-Dialysis 98 degF June 05, 2023 In-Center Hemodialysis Treatment 4256-32-54Q79:44:00.000Z 4751-66-24L28:17:33.000Z BP Sitting (Pre-Dialysis) 138/67 mmHg BP Sitting [...] degF June 03, 2023 In-Center Hemodialysis Treatment 2232-27-94E28:47:00.000Z 4113-58-26G28:19:56.000Z BP Sitting (Pre-Dialysis) 124/66 mmHg BP Sitting (Post-Dialysis) 139/83 mmHg Concurrent Access: falseAV Fistula Forearm (Left) Arterial Sitting Heart Rate Pre-Dialysis 93 BPM BP Standi ng (Post-Dialysis) 107/53 mmHg Temperature Pre-Dialysis 97 degF Sitting Heart Ra te Post-Dialysis 72 BPM Standing Heart Rate Post-Marlys lysis 72 BPM Temperature Post-Dialysis 97 .3 degF May 31, 2023 In-Center Hemodialysis Treatment 6986-89-38R43:43:00.000Z 4572-16-05U81:09:13.000Z BP Sitting (Pre-Dialysis) 113/53 mmHg BP Sitting (Post-Dialysis) 160/88 mmHg Concurrent Access: falseAV Fistula Forearm (Left) Arterial Sitting Heart Rate Pre-Dialysis 89 BPM BP Standi ng (Post-Dialysis) 158/86 mmHg Temperature Pre-Dialysis 97 degF Sitting Heart Ra te Post-Dialysis 77 BPM Standing Heart Rate Post-Marlys lysis 75 BPM Temperature Post-Dialysis 97 .6 degF May 29, 2023 In-Center Hemodialysis Treatment 6771-27-31Z55:41:15.000Z 1511-33-38D40:15:36.000Z BP Sitting (Pre-Dialysis) 139/71 mmHg BP Sitting [...] degF May 27, 2023 In-Center Hemodialysis Treatment 4272-64-90R92:45:00.000Z 3168-19-12G96:16:46.000Z BP Sitting (Pre-Dialysis) 118/69 mmHg BP Sitting (Post-Dialysis) 126/62 mmHg Concurrent Access: falseAV Fistula Forearm (Left) Arterial Sitting Heart Rate Pre-Dialysis 90 BPM Sitting H eart Rate Post-Dialysis 73 BPM Temperature Pre-Dialysis 97.8 degF Temperature Post -Dialysis 97.4 degF May 25, 2023 In-Center Hemodialysis Treatment 2103-19-57W69:39:00.000Z 7978-71-56W53:15:21.000Z BP Sitting (Pre-Dialysis) 161/77 mmHg BP Sitting (Post-Dialysis) 148/72 mmHg Concurrent Access: falseAV Fistula Forearm (Left) Arterial BP Standing (Pre-Dialysis) 149/72 mmHg Sitting Heart Rate Post-Dialysis 72 BPM Sitting Heart Rate Pre-Dialysis 71 BPM Temperatu re Post-Dialysis 98 degF Standing Heart Rate Pre-Dialysis 80 BPM Temperature Pre-Dialysis 97.8 degF Results Adequacy Description Draw Date Result/Unit Status Ref Range Result Comments PRESCRIBED DAYS/WEEK 2023-05-29 16:24:49 3 Day/Wk F [...] 1.55 F eKt/V 2023-05-29 16:24:49 1.31 F stdKt/V (DIAL) 2023-05-29 16:24:49 N/A F Std Renal KT/V 2023-05-29 16:24:49 N/A F stdKT/V Total 2023-05-29 16:24:49 N/A F TOTAL HOURS/WEEK DIALYSIS 2023-05-29 16:24:49 7 hrs F BLOOD FLOW-QWB 2023-05-29 16:24:49 427 F CURRENT KRU 2023-05-29 16:24:49 F URR% 2023-05-29 16:24:49 75 % F DIALYZER FLOW-QD 2023-05-29 16:24:49 702 mL/min F Dialyzer MURIEL 2023-05-29 16:24:49 1218 Calc F LENGTH OF DIALYSIS 2023-05-29 16:24:49 211 min F PATIENT AGE 2023-05-29 16:24:49 83 Years F BSA KITTY 2023-05-29 16:24:49 2.2 sq m F WEIGHT - POST DAY 1 2023-05-29 16:24:49 98 kg F WEIGHT - PRE DAY 1 2023-05-29 16:24:49 99.2 kg F HEIGHT IN INCHES 2023-05-29 16:24:49 72 Inches F WEIGHT (KG) 2023-05-29 16:24:49 98 kg F Urea nitrogen [Mass/volume] in Serum or [...] 00:28:33 125 x 10^3 cells/uL F 140.0-450.0 Ferritin [Mass/volume] in Serum or Plasma 2023-05-28 [...] Date Result/Unit Status Ref Range Result Comments Basophils/100 leukocytes in Blood by Automated count [...] count 2023-05-29 00:28:33 217 Cell/uL F 0.0-700.0 MineralBone Disorder Description Draw Date Result/Unit Status [...] Comments Refusal Reason Pneumococcal conjugate PCV20, polysaccharide [id number] conjugate, adjuvant, PF 2023-08-10 23:54:57 TB RAQ 2023-05-25 06:00:00 TB Skin Test 2023-04-24 06:00:00 Influenza Vaccination 2023-03-04 05:00:00 Covid-19 Vaccination 2020-08-23 08:00:00 Covid-19 Vaccination 2020-08-03 08:00:00
--- OUTSIDE RECORDS SUMMARY | 2024-12-09 15:02 | XMS_ITS ---
Author Organization [facility] [place] Care Team Providers Care Practice Office Associate Name Role Phone Mary Negrete Unavailable Unavailable Dylan Xiong Unavailable Unavailable Rene Matthews Unavailable Unavailable Allergies and adverse reactions Code CodeSystem Substance Reaction Severity StartDate Concern Status 46710 RXNORM Lisinopril Unknown 07/06/2006 active Lipitor Unknown 07/04/2006 active Care Team Name Role Address Phone Organization Dates Rene Matthews PCP [facility] [address] [place] [address], [address] [place] [address], [facility], [place] States (Office): [facility] 02/10/2014 - 03/22/2014 Mary Negrete [facility] [address] [facility] [address] [place] [address], [facility], [place] States (Office): : [facility] 02/10/2014 - 03/22/2014 Dylan Xiong [facility] [address], [place], [address], [facility] 02/10/2014 - 03/22/2014 Immunizations Immunization Status Vaccine Details Vaccine Code CodeSystem Date Notes Influenza completed Influenza, high-dose, split virus, quadrivalent, injectable, preservative free lotNumber: [id number] expiry: 11/06/2014 Mfg: Novartis Given 0.5 ml Left Deltoid intramuscularly 197 CVX created date: 02/14/2014 consent date: 02/14/2014 administer ed date: 03/01/2014 Educated by [facility] DA[facility] on 02/14/2014 Pneumovax Dose 1 completed created date: 02/08/2014 administer ed date: 03/19/1994 TB 2 Step Mantoux Skin Test completed tuberculin skin test; unspecified formulation lotNumber: [id number] expiry: 04/06/2014 Mfg: [employer] Given 0.1 ml Right Forearm intradermally Step 2 of Multi-step with next step required 98 CVX created date: 02/25/2014 consent date: 02/25/2014 administer ed date: 02/25/2014 TB 2 Step Mantoux Skin Test completed tuberculin skin test; unspecified formulation lotNumber: [id number] expiry: 07/09/2015 Mfg: [employer] Given 0.1 ml Right Forearm intradermally Step 1 of Multi-step with next step required 98 CVX created date: 02/12/2014 consent date: 02/12/2014 administer ed date: 02/12/2014 Educated by Patricia Pisano on 02/12/2014 Mental Status Section Date Assessment Total Score Description 03/09/2014 BIMS 13 cognitively int act PHQ-9 10 moderate depres daniella Reason for Referral No Reasons for Referral Entered Social History Social History Observation Description Start Date End Date Code Code System Current Smoking Status Tobacco smoking consumption unknown 170512459 SNOMED CT Sex Assigned At Male 1940 82197-7 LOINC Gender Identity Vital Signs Code Code System Vitals Name Values and Units Timing Information 62662-0 LOINC Weight Sqyhu=621.8 Units=Lbs 2339-0 LOINC Blood Sugar Yofad=625.0 Units=mg/dL 03/22/2014 8310-5 [facility] Body Temperature Value=97.7 Units= F 03/22/2014 9279-1 [facility] Respiratory Rate Value=18.0 Units=/m in 03/13/2014 8462-4 [facility] Blood Pressure-Diastolic Value=64 Un its=mmHg 03/13/2014 8480-6 [facility] Blood Pressure-Systolic Dozne=576 Un its=mmHg 03/13/2014 8867-4 [facility] Heart rate Value=75.0 Units=/min 11/2013 43944-3 [facility] O2 % dC Oximetry Value=96.0 Units= % 03/13/2014 8302-2 [facility] Height Value=72.0 Units=Inches 02/13/2014
--- NOTE | 2024-12-09 15:37 | CRLHL7_ITS ---
For Patients: As a result of the Century Cures Act, medical imaging exams and procedure reports are released immediately into your electronic medical record. You may view this report before your referring provider. If you have questions, please contact your health care provider. INDICATION: LT LOWER LEG SWELLING TECHNIQUE: Tibia-fibula radiograph 2 views COMPARISON: None FINDINGS: Bones: Alignment is normal. Diffuse osseous demineralization. No acute fractures or aggressive osseous lesions seen. Joint spaces: Degenerative changes of the visualized knee and ankle joints. Soft tissues: Along the lateral aspect of the distal leg, beneath the external bandage material, there is patchy soft tissue gas. No radiopaque foreign bodies are noted. IMPRESSION: 1. Along the lateral aspect of the distal leg, beneath the external bandage material, there is patchy soft tissue gas. This is nonspecific, and could be secondary to a recent wound, but could reflect a gas-forming infection. 2. No acute osseous injuries are identified. Dictated by Saw Mary MD @ 12/09/2024 4:13:13 PM (Electronically Signed)
--- NOTE | 2024-12-09 15:37 | CRLHL7_ITS ---
For Patients: As a result of the Cures Act, medical imaging exams and procedure reports are released immediately into your electronic medical record. You may view this report before your referring provider. If you have questions, please contact your health care provider. INDICATION: Swelling. TECHNIQUE: Ultrasound venous duplex lower left extremity. Compression venous exam was performed using spicer-scale, color Doppler, and spectral Doppler analysis. FINDINGS: Sonographic imaging demonstrates the left common femoral, deep femoral, superficial femoral, popliteal, posterior tibial and greater saphenous and the contralateral right common femoral veins to be fully compressible with normal color Doppler blood flow. IMPRESSION: No DVT identified in the left lower extremity. Dictated by Sixto Cotto MD @ 12/09/2024 5:16:07 PM Dictated by: Sixto Cotto MD @ 12/09/2024 17:16:15 (Electronically Signed)
--- OUTSIDE RECORDS SUMMARY | 2024-12-09 15:43 | XMS_ITS ---
Author Organization [facility] [place] Care Team Providers Care Automotive Shop Foreman Name Role Phone Mary Negrete Unavailable Unavailable Dylan Xiong Unavailable Unavailable Rene Matthews Unavailable Unavailable Allergies and adverse reactions Code CodeSystem Substance Reaction Severity StartDate Concern Status 15930 RXNORM Lisinopril Unknown 07/06/2006 active Lipitor Unknown 07/04/2006 active Care Team Name Role Address Phone Organization Dates Rene Matthews PCP [facility] [address] [place] [address], [address] [place] [address], [facility] [place] States (Office): [facility] 02/10/2014 - 03/22/2014 Mary Negrete [address] [address] [facility] [address] [place] [address], [facility] [place] States (Office): : [facility] 02/10/2014 - 03/22/2014 Dylan Xiong [facility] [address], [place], [address], [facility] 02/10/2014 - 03/22/2014 Immunizations Immunization Status Vaccine Details Vaccine Code CodeSystem Date Notes Influenza completed Influenza, high-dose, split virus, quadrivalent, injectable, preservative free lotNumber: [id number] expiry: 11/06/2014 Mfg: Novartis Given 0.5 ml Left Deltoid intramuscularly 197 CVX created date: 02/14/2014 consent date: 02/14/2014 administer ed date: 03/01/2014 Educated by [facility] on 02/14/2014 Pneumovax Dose 1 completed created date: 02/08/2014 administer ed date: 03/19/1994 TB 2 Step Mantoux Skin Test completed tuberculin skin test; unspecified formulation lotNumber: [id number] expiry: 04/06/2014 Mfg: [employer] Given 0.1 ml Right Forearm intradermally Step 2 of Multi-step with next step required 98 CVX created date: 02/25/2014 consent date: 02/25/2014 administer ed date: 02/25/2014 TB 2 Step Mantoux Skin Test completed tuberculin skin test; unspecified formulation lotNumber: [id number] expiry: 07/09/2015 Mfg: [employer] Given 0.1 [...] Current Smoking Status Tobacco smoking consumption unknown 678910643 SNOMED CT Sex Assigned At Male 1940 32309-9 LOINC Gender Identity Vital Signs Code Code System Vitals Name Values and Units Timing Information 55179-9 LOINC Weight Kuvhc=730.8 Units=Lbs 2339-0 LOINC Blood Sugar Decwc=855.0 Units=mg/dL 03/22/2014 8310-5 [facility] Body Temperature Value=97.7 Units= F 03/22/2014 9279-1 [facility] Respiratory Rate Value=18.0 Units=/m in 03/13/2014 8462-4 [facility] Blood Pressure-Diastolic Value=64 Un its=mmHg 03/13/2014 8480-6 [facility] Blood Pressure-Systolic Qszbz=542 Un its=mmHg 03/13/2014 8867-4 [facility] Heart rate Value=75.0 Units=/min 11/2013 91874-5 [facility] O2 % dC Oximetry Value=96.0 Units= % 03/13/2014 8302-2 [facility] Height Value=72.0 Units=Inches 02/13/2014
--- OUTSIDE RECORDS SUMMARY | 2024-12-09 15:43 | XMS_ITS ---
Author Organization [facility] Care Team Providers Care Bankruptcy Assistant Name Role Phone Sundeep Jonh Unavailable Unavailable Allergies and adverse reactions Code CodeSystem Substance Reaction Severity StartDate Concern Status 7646 RXNORM Omeprazole Unknown 02/14/2021 active 6915 RXNORM Metoclopramide Unknown 02/14/2021 active 29259 RXNORM Lisinopril Unknown 02/14/2021 active Lipitor Unknown 02/14/2021 active Care Team Name Role Address Phone Organization Dates Sundeep John PCP [address] [facility] [address], [place], [address], [place] States (Office): : [facility] 02/14/2021 - 02/28/2021 Immunizations Immunization Status Vaccine Details Vaccine Code CodeSystem Date Notes TB 2 Step Mantoux Skin Test completed tuberculin skin test; unspecified formulation lotNumber: [id number] expiry: 02/27/2022 Mfg: Per [employer] Given 0.1 ml Right Forearm intradermally Step 2 of Multi-step with next step required 98 CVX created date: 02/27/2021 consent date: 02/27/2021 administer ed date: 02/25/2021 Educated by raymundo on 02/27/2021 TB 2 Step Mantoux Skin Test completed tuberculin skin test; unspecified formulation lotNumber: [id number] expiry: 03/07/2022 Mfg: PAR pharmaceutical Given 0.1 [...] CodeSystem Concern Status 1 COVID-19 02/15/[address] active 2 END STAGE RENAL DISEASE 02/15/[address] active 3 OBESITY, UNSPECIFIED 02/15/[address] active 4 PNEUMONIA DUE TO CORONAVIRUS DISEASE 2019 02/15/[id number] active 5 TYPE 2 DIABETES MELLITUS WITH DIABETIC NEUROPATHY, UNSPECIFIED 02/15/[address] active 6 UNSTEADINESS ON FEET 02/15/[address] active 7 MUSCLE WEAKNESS (GENERALIZED) 02/08/[address] active 8 NEED FOR ASSISTANCE WITH PERSONAL CARE 02/08/[address] active Reason for Referral No Reasons for Referral Entered Social History Social History Observation Description Start Date End Date Code Code System Current Smoking Status Tobacco smoking consumption unknown 891581940 SNOMED CT Sex Assigned At Male 1940 05795-2 [facility] Gender Identity Vital Signs Code Code System Vitals Name Values and Units Timing Information 8310-5 [facility] Body Temperature Value=98.0 Units= F 02/28/2021 69699-9 [facility] O2 % BldC Oximetry Value=96.0 Units= % 02/28/2021 2339-0 [facility] Blood Sugar Value=98.0 Units=mg/dL 02/28/2021 9279-1 [facility] Respiratory Rate Value=18.0 Units=/m in 02/27/2021 8462-4 [facility] Blood Pressure-Diastolic Value=54 Un its=mmHg 02/27/2021 8480-6 [facility] Blood Pressure-Systolic Zactg=272 Un its=mmHg 02/27/2021 8867-4 [facility] Heart rate Value=70.0 Units=/min 91225-1 [facility] Pain Level Value=0.0 02/27/2021 44665-0 [facility] Weight Rlzrp=796.7 Units=Lbs
--- OUTSIDE RECORDS SUMMARY | 2024-12-09 15:44 | XMS_ITS | Clinical Summary ---
Author Organization [facility] Address [address] [place] [id number] Care Team Providers Care Client Account Manager Name Role Phone Anna Marie Oglesby DO Primary Care Provider [phone] Jonah Aguero NETWORK ARCHITECT MANAGER Unavailable [phone] Allergies Active Allergy Reactions Criticality Noted Date Comments Atorvastatin Other - Describe In Comment Field,Arthralgia,*Unkn own High 07/04/2006 bad pain in legs per pt. Diphenhydramine Itching 12/07/2024 Doxycycline Rash 04/06/2004 Lisinopril GI Upset High 07/06/2006 Metoclopramide Hcl Gynecomastia High 11/29/2018 Omeprazole Diarrhea 09/04/2015 Per home med list. Tolerates protonix. Omeprazole Magnesium Diarrhea High 11/29/2018 Medications ALBUTEROL SULFATE HFA 90 MCG/ACTUATION AEROSOL [...] mg enteric coated tabletIndication s:Atherosclerosi s of robinson coronary artery of robinson heart with angina pectoris Take 1 tablet by mouth once daily [...] subcutaneous three times daily before meals. Active cycloSPORINE (Restasis) 0.05 % ophthalmic emulsion [...] mouth once daily. Active Vit B Cplx #[id number]-Biot-Zi nc (Dialyvite) [phone] jc-ao-qqw-mg tablet Take 1 Tablet by mouth once daily. 07/02/19 24 Active clopidogreL (Plavix) 75 mg tabletIndication s:Bilateral carotid artery stenosis,Coronar y artery disease, unspecified vessel or lesion type, unspecified whether angina present, unspecified whether robinson or transplanted heart Take 1 Tablet (75 [...] for pain Active Midodrine HCl 10 mg tablet Take 10 mg by mouth. Before and after dialysis (only on dialysis days). Active sennosides-docus ate (Senna-S) (8.6-50 mg) tablet Take 2-3 Tablets by mouth 2 times daily if needed for Constipation. Active fluticasone (50 mcg per actuation) nasal solution (FLONASE) Inhale 1 Sandgap into affected nostril(s) once daily if needed for Rhinitis. Active calcium carbonate (Tums) 200 mg calcium (500 mg) chewable tablet Chew 500 mg by mouth 4 times daily if needed for Heartburn or GI Upset. Active hydrocortisone (Scalpicin Anti-Itch) 1 % topical solution Apply topically to affected area(s) each time if needed. Itchy scalp Active diclofenac topical (Voltaren Arthritis Pain) 1 % gel Apply 2 g topically to affected area(s) 4 times daily if needed. Active neomycin-bacitra nicole-polymyxin (Neosporin (jkz-uys-bbout)) 3.5mg-400 unit-5,000 unit/gram ointment Apply topically to affected area(s) 3 times daily if needed. Active difelikefalin (Korsuva) 50 mcg/mL solnIndications: pruritus in hemodialysis-dep endent CKD Inject intravenous. at dialysis Active Patients Unique Medication From Home CBD Sublingual liquid - uses QID PRN for itching/pain Active efinaconazole 10 % topical solutionIndicati ons:Fungal infection of nail Apply solution daily for 48 weeks. 8 mL 11 11/10/19 25 Active cephalexin 500 mg capsuleIndicatio ns:Skin infection,Open wound of finger, initial encounter Take 1 Capsule (500 mg) by mouth three times daily for 7 days. 21 Capsule 12/08/19 25 025 Active Active Problems Problem Noted Date Diagnosed Date Skin ulcer of left calf with fat layer exposed 0 11/15/2024 Overview (11/15/2024): Secondary to hematoma Osteomyelitis of toe of left foot 11/15/2024 Skin ulcer of left thigh, limited to breakdown o f skin 11/15/2024 Overview (11/15/2024): New 11/15/24 Open wound of toe 09/27/2024 Hematoma of left lower leg 09/27/2024 Skin ulcer of right thigh with fat layer exposed 09/27/2024 Incontinence of feces 09/27/2024 Sensorineural hearing loss, bilateral 09/27/2024 Pulmonary edema with congestive heart failure Other psoriasis 09/27/2024 Oropharyngeal dysphagia 09/27/2024 Overview (09/27/2024): Dec 14, 2022 Entered By: RODRÍGUEZ MATHEWS Comment: 2014 COLLECTION SPECIALIST eval in chart Hemorrhoid 09/27/2024 Age-related cataract 09/27/2024 Chronic systolic heart failure 09/27/2024 Overview (09/27/2024): AI Summary: As of 08/30/24: The patient has a history of hypertensive heart and chronic kidney disease with heart failure and stage 5 chronic kidney disease, first noted on 11/04/2022. Between 05/25/2024 and 06/08/2024, the patient experienced an acute exacerbation of chronic systolic heart failure requiring hospitalization; an echocardiogram on 05/31/2024 showed an ejection fraction of 43% with mild left ventricular enlargement. The patient's heart failure is considered [id number], and follow-up care is planned. 05/31/24: LVEF 40-45% 08/30/24: BP 134/62 08/30/24: HR 73 /min On meds: nitroglycerin, ubidecarenone Recent encounter dx: 06/16/24: Appointment - [facility] 05/25/24: Discharge - [facility], [id number], [id number] / 04/19/24: Appointment - [facility] 04/09/16: Discharge - [facility], [facility], [id number], [id number] / 10/14/06: Appointment - [facility] Recent studies: 05/30/24: Corresp-Imaging - [facility] ... [-] Findings compatible with heart failure and pulmonary edema with a large ... [-] This could relate to increased vascular pressures from heart failure but could be evaluated with ultrasound if there is clinical concer for acute cholecystitis. 07/09/06: XR CHEST PORTABLE 1 VIEW by Checo Hendrickson MD, GABRIEL Payan ... [-] Heart failure. ... [-] Congestive heart failure. 07/05/06: Echocardiogram by Duke Cruz MD, Checo Wu MD ... [-] Name: Sheryl Serrano /MR#: [id number] Date: 07/05/2006 Physician Requesting Echo: Chris Morley MD Performed at: [facility] Copy To: Marques Gomez MD Indication for study: congestive heart failure Recent notes: 08/30/24: Progress Notes - Vascular and Endovascular Surgery by Sneha De La Cruz MD ... [+] ? Acute on chronic systolic heart failure (HC) 05/25/2024 ... [+] ? Hypertensive heart and chronic kidney disease with heart failure and with stage 5 chronic kidney disease, or end stage renal disease (HC) 11/04/2022 08/16/24: Progress Notes - Interventional Cardiology Consult Note by Sebastian Wing MD ... [+] He was hospitalized between May 25, 2024 and June 08, 2024 with acute on chronic systolic heart failure. ... [+] Follow-up for acute on chronic congestive heart failure ... [+] This is a very pleasant 84 y.o. male with multiple comorbidities who was recently hospitalized in May for acute on chronic congestive heart failure. 06/28/24: Progress Notes - History of Present Illness by Zeny Medley MD ... [+] ? Hypertensive heart and chronic kidney disease with heart failure and with stage 5 chronic kidney disease, or end stage renal disease (HC) I13.2 ... [+] ? Acute on chronic systolic heart failure (HC) I50.23 06/16/24: Pre-Visit Planning - Appointment Notes by Lexus Ballard MA ... [-] DOD 06/08/2024 [facility] Acute on chronic systolic heart failure 06/16/24: Progress Notes - Nursing Notes by Braden Wilder MD ... [+] Diagnosed with exacerbation of HFrEF. ... [+] Acute on chronic HFrEF: Echo on May 31 showed ejection fraction 43% with mild increase in LV size. PAD (peripheral artery disease) 09/06/2024 Dementia 06/16/2024 Overview (11/15/2024): AI Summary: As of 03/04/24: The patient has dementia (F03.90), diagnosed on 03/04/2024, with a likely vascular etiology, and a history of stable disease for some time. The patient experienced visual hallucinations, possibly related to acute pneumonia, on 12/28/2022 and 01/01/2023 and 01/05/2023. The patient's father had Alzheimer's disease and hardening of the arteries. 06/08/24: Glu 150 mg/dL Recent encounter dx: 06/16/24: Appointment - [facility] Recent notes: 01/05/23: Progress Notes by Kaykay Rosenthal NP ... [+] Afebrile/hemodynamically stable, non-toxic appearing, non-focal neurologic exam, ongoing visual hallucinations, etiology likely due to acute pneumonia in setting of underlying dementia. 12/28/22: H&P - HISTORY & PHYSICAL by Trey Messina MD ... [+] Left Lower Lobe Pneumonia - Afebrile/hemodynamically stable, non-toxic appearing, non-focal neurologic exam, ongoing visual hallucinations, etiology likely due to acute pneumonia in setting of underlying dementia with vulnerable brain. AI Summary: As of 09/08/24: The patient has a history of dementia, likely vascular dementia, with impaired cognition and poor short-term memory, which has been stable for some time without obvious progression of impairment. Visual hallucinations were noted, likely due to acute pneumonia in the setting of underlying dementia. The patient's father had Alzheimer's disease. 09/09/24: Glu 260 mg/dL Recent encounter dx: 06/16/24: Appointment - [facility] Recent notes: 01/05/23: Progress Notes by Kaykay Rosenthal, TAMIKO ... [+] Afebrile/hemodynamically stable, non- toxic appearing, non-focal neurologic exam, ongoing visual hallucinations, etiology likely due to acute pneumonia in setting of underlying dementia. 12/28/22: H&P - HISTORY & PHYSICAL by Trey Messina MD ... [+] Left Lower Lobe Pneumonia - Afebrile/hemodynamically stable, non-toxic appearing, non-focal neurologic exam, ongoing visual hallucinations, etiology likely due to acute pneumonia in setting of underlying dementia with vulnerable brain. Type 2 diabetes mellitus with left diabetic foot ulcer 06/02/2024 ACP (advance care planning) 05/25/2024 Biventricular cardiac pacemaker in situ 02/16/20 Bladder outlet obstruction 02/16/2024 Diabetic neuropathy 02/16/2024 Ischemic congestive cardiomyopathy 02/16/2024 Chronic atrial fibrillation 02/16/2024 Protein-calorie malnutrition, unspecified severi ty 01/12/2024 Bilateral carotid artery stenosis 01/12/2024 Overview (09/27/2024): Asymptomatic alf (current) use of aspirin 09/15/2023 Recurrent UTI 01/04/2023 ESRD (end stage renal disease) on dialysis 12/29 Overview (11/15/2024): >>OVERVIEW FOR ESRD ON DIALYSIS (HC) WRITTEN ON 11/15/2024 11:35 AM BY JONAH AGUERO NP AI Summary: As of 10/12/24: The patient has end-stage renal disease (ESRD) on dialysis and chronic kidney disease (CKD) stage 5 with GFR less than 15 ml/min. The patient also has anemia of chronic renal failure and hypertensive heart and chronic kidney disease with heart failure. The patient was admitted on 09/04/2024 with left foot redness. 10/12/24: Cr 5.82 mg/dL 09/05/24: GFR 21 mL/min/1.73m2 10/14/24: BUN 89 mg/dL On meds: aluminum hydroxide / magnesium carbonate (external), cholecalciferol, zinc acetate (external) Recent encounter dx: 10/26/24: Treatment - [facility] ([facility] 09/15/24: Appointment - [facility] 08/23/24: Appointment - [facility] [place] 07/26/24: Appointment - [facility] [place] 07/19/24: Appointment - [facility] Recent studies: 10/29/18: IR CENTRAL VENOUS ACCESS/PORT by Phillip Harvey MD, Quinn Qureshi MD ... [+] Indication: 78-year-old with chronic kidney disease progressed to end- stage renal disease requiring hemodialysis. Recent notes: 10/26/24: Miscellaneous Notes - Dialysis Note by Darren Youssef MD (from [facility]) ... [-] end stage renal disease. 09/15/24: Progress Notes - Nursing Notes by Trey Fisher-Lloyd Carlson MD ... [-] Hypertensive heart and chronic kidney disease with heart failure and with stage 5 chronic kidney disease, or end stage renal disease (HC) I13.2 09/04/24: Progress Notes by Glen Stephens MD ... [-] End stage renal disease (GFR < 15 mL / min). 09/04/24: Consults - RENAL CONSULTATION by Darren Youssef MD ... [-] Hypertensive heart and chronic kidney disease with heart failure and with stage 5 chronic kidney disease, or end stage renal disease (HC) 11/04/2022 09/04/24: H&P - HISTORY & PHYSICAL by Phillip Mcpherson MD ... 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 He also has a history of peripheral artery disease, with left leg angiogram and tibial intervention performed on 06/03/2024 and a left great toe amputation. The patient presented with decompensated heart failure on 05/25/2024 and 06/07/2024. 08/30/24: HR 73 /min 08/10/24: K 4 mEq/L On meds: midodrine, nitroglycerin, pravastatin, ubidecarenone Recent encounter dx: 01/12/24: Appointment - [facility] 11/04/22: Appointment - [facility] Recent notes: 08/16/24: Progress Notes - Interventional Cardiology Consult Note by Sebastian Wing MD ... [+] Sheryl Serrano is a delightful 84-year-old gentleman with a history of coronary artery disease status post CABG in 2006, ischemic cardiomyopathy with an ejection fraction of 45%, type 2 diabetes complicated by retinopathy and neuropathy, hypertension, dyslipidemia, end-stage renal disease on hemodialysis, hypothyroidism, secondary hyperparathyroidism, atrial fibrillation, and complete hear... 03/23/24: H&P by REMI Mccollum ... [+] past medical history significant for end-stage renal disease on hemodialysis, type 2 diabetes complicated by neuropathy and retinopathy, hypertension, hyperlipidemia, ischemic cardiomyopathy (EF 45%), coronary artery disease status post CABG (2006), hypothyroidism, secondary hyperparathyroidism, second-degree heart block, urinary retention and hematuria, atrial fibrillation, complete heart blo... 01/12/24: Progress Notes - Medicare Wellness Visit by Anna Marie Oglesby DO ... [+] Haile has a past medical history significant for end-stage renal disease on dialysis, secondary hyperparathyroidism, chronic anemia, type 2 diabetes mellitus with retinopathy, neuropathy, hypertension, hyperlipidemia, ischemic cardiomyopathy, s/p CABG in 2006, hypothyroidism, complete heart block status post biventricular pacemaker. 02/27/22: Progress Notes by Yoana Jarquin NP ... [+] Mr. Sheryl Serrano is an 80 y.o. male with a past medical history significant for end-stage renal disease on hemodialysis, type 2 diabetes complicated by neuropathy and retinopathy, hypertension, hyperlipidemia, ischemic cardiomyopathy (EF 45%), coronary artery disease status post CABG (2006), hypothyroidism, secondary hyperparathyroidism, second-degree heart block, urinary retention and h... ... [-] Complete heart block 02/01/19: Progress Notes by Bre Varela, TAMIKO ... [+] He appears to have atrial fibrillation with an idioventricular beat, indicating maybe A-Fib with a complete heart block. ... [-] on EKG last month he reported to have A-Fib with complete heart block and an idioventricular escape rhythm. 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 Long-term insulin management has been implemented, with various insulin formulations prescribed since 12/02/2007, including glargine and aspart, and also including regular and isophane human insulin. Pravastatin was prescribed on 10/20/2008; glargine insulin was discontinued on an unspecified date due to hypoglycemia. 05/31/24: A1c 4.9 % 08/10/24: Cr 5.81 mg/dL On meds: insulin aspart, human Recent encounter dx: 08/23/24: Appointment - [facility] [place] 08/09/24: Appointment - [facility] [place] 07/26/24: Appointment - [facility] [place] 06/16/24: Appointment - [facility] 01/12/24: Appointment - [facility] Recent notes: 08/30/24: Progress Notes - Vascular and Endovascular Surgery by Sneha De La Cruz MD ... [+] ? Type 2 diabetes mellitus with left diabetic foot ulcer (HC) 06/02/2024 ... [+] ? Type 2 diabetes mellitus without complication, with long-term current use of insulin () 01/04/2023 08/23/24: Progress Notes - Nursing Notes by Braulio Philippe DPM ... [+] A: Hematoma left lower leg, S/p partial left great toe amputation surgery, surgical dehiscence left, type 2 diabetes with neuropathy, blister right foot. 08/09/24: Progress Notes - Nursing Notes by Braulio Philippe DPM ... [+] A: S/p partial left great toe amputation surgery, surgical dehiscence left, type 2 diabetes with neuropathy 06/28/24: Progress Notes - History of Present Illness by Zeny Medley MD ... [+] ? Type 2 diabetes mellitus without complication, with long-term current use of insulin (HC) E11.9, Z79.4 ... [+] ? Type 2 diabetes mellitus with left diabetic foot ulcer (HC) E11.621, L97.529 06/16/24: Progress Notes - Nursing Notes by Braden Wilder MD ... [+] Insulin-dependent type 2 diabetes mellitus, glargine insulin discontinued in hospital due to hypoglycemia: A1c on May 31 was low enough at 4.9, may not need restart of glargine anytime soon. AI Summary: As of 10/13/24: The patient has a history of type 2 diabetes mellitus, diagnosed on 05/02/2002, with complications including neuropathy, renal manifestations, and a left diabetic foot ulcer and infection. The patient also has a diabetic ulcer of the toe of the left foot and new onset diabetic ulcerations digits 3, 4 and 5 right foot. The patient is on long-term insulin therapy, and the last A1c value indicated well-controlled diabetes. 05/31/24: A1c 4.9 % 10/12/24: Cr 5.82 mg/dL On meds: insulin aspart, human Recent encounter dx: 09/22/24: Appointment - [facility] [place] 09/15/24: Appointment - [facility] 09/04/24: Discharge - [facility], [facility], [id number], [id number] / 01 08/23/24: Appointment - [facility] [place] 08/09/24: Appointment - [facility] [place] Recent notes: 10/13/24: Progress Notes by Jonah Aguero NP ... [+] Situation complicated by type 2 diabetes mellitus, peripheral arterial disease, end stage renal disease on dialysis, heart disease with heart failure, hypertension, and osteomyelitis of the left foot. 09/27/24: Progress Notes by Jonah Aguero NP ... [+] Situation complicated by type 2 diabetes mellitus, end stage renal disease on dialysis, 09/22/24: Progress Notes - Nursing Notes by Braulio Philippe DPM ... [+] A: surgical dehiscence left, new onset diabetic ulcerations digits 3, 4 and 5 right foot, type 2 diabetes with neuropathy, blister right foot. 09/15/24: Progress Notes - Nursing Notes by Trey Carlson MD ... [+] ? Type 2 diabetes mellitus without complication, with long- term current use of insulin (HC) E11.9, Z79.4 ... [+] ? Type 2 diabetes mellitus with left diabetic foot ulcer (HC) E11.621, L97.529 ... [+] ? Type 2 diabetes mellitus with left diabetic foot infection (HC) E11.628, L08.9 ... [+] Type 2 diabetes mellitus without complication, with long-term current use of insulin (HC) E11.9 09/09/24: Discharge Summary by Phillip Mcpherson MD ... [+] Type 2 diabetes mellitus without complication, with long-term current use of insulin (HC) ... [+] Type 2 diabetes mellitus with left diabetic foot infection (HC) ... [+] Sheryl Serrano is a(n) 84 y.o. with a history of type 2 diabetes, coronary artery disease, anemia, ESRD on dialysis, hypertension, HLD, PAD, CHLOE ,hypothyroidism, complete heart block s/p pacemaker, CHF EF 40-45%, afib and bilateral carotid stenosis who was admitted on 09/04/2024 with left foot redness. Subacute osteomyelitis 09/05/2015 Overview (09/27/2024): Last Assessment & Plan: 75yoM now 6 mo s/p explantation of L tibia hardware for infection, requiring rotational flap coverage, doing well, but now with increasing anterior erythema concerning for cellulitis -Continue WBAT LLE, no restrictions -Encouraged to work on walking endurance, okay to use walker -Recommended elevating and icing the leg for comfort Swelling may be a vascular issue related to venous loss and the free flap. -Initiate Levaquin x7 days for cellulitis (this was the drug last used by our ID colleagues for his MSSA infx) with the plan for him to f/u with his PMD in [place] early next week for a repeat check. Patient and agree to this plan. If not improving, can also help them schedule with ID at [facility] for another exam. -RTC PRN Fracture of fibula with tibia, left, closed 11/2014 Pulmonary emphysema 04/13/2015 Overview (09/27/2024): AI Summary: As of 08/30/24: The patient has a history of pulmonary emphysema, with an etiology possibly related to congestive heart failure. Treatment includes multiple medications, including albuterol/ipratropium, tiotropium, budesonide/formoterol, formoterol/mometasone, and nebulizer treatments, all initiated for the management of emphysema between 10/31/2015 and 02/08/2016. The patient's symptoms, including shortness of breath, have been noted to be stable at times, with no shortness of breath at rest reported on 11/07/2020. 08/30/24: SpO2 95 % 08/30/24: HR 73 /min On meds: albuterol, fluticasone / salmeterol, montelukast, tiotropium Recent encounter dx: 06/16/24: Appointment - [facility] 03/03/24: Appointment - [facility] 01/12/24: Appointment - [facility] 02/07/16: Support OP Encounter - [facility] 12/20/15: Appointment - [facility] Recent notes: 08/30/24: Progress Notes - Vascular and Endovascular Surgery by Sneha De La Cruz MD ... [+] ? Pulmonary emphysema (HC) 04/13/2015 06/28/24: Progress Notes - History of Present Illness by Zeny Medley MD ... [+] ? Pulmonary emphysema (HC) J43.9 06/08/24: Discharge Summary by Phillip Hill DO ... [+] Pulmonary emphysema (HC) 06/04/24: Progress Notes - Vascular & Endovascular Surgery Progress Note by DELORES Espinoza ... [-] Pulmonary emphysema 05/25/24: Progress Notes by Ezekiel Soto DO ... [-] Etiology likely multifactorial and secondary to congestive heart failure in the context of pulmonary emphysema, spiculated mass with possible pneumonia versus neoplastic process Acquired hypothyroidism 04/13/2015 Obstructive sleep apnea 07/20/2013 Overview (09/27/2024): October 28, 2022 Entered By: KINGS ROCHA Comment: APAP: 10-20, Ramp: 5x10 min, Doris RASMUSSEN Asbestosis(501) 12/26/2010 Overview (12/26/2010): Needs annual CXR and PFT's Colon polyps 06/22/2009 Overview (03/20/2010): Colonoscopy 03/2010 polyp, poor prep repeat in 3 years Detached retina 10/10/2008 Overview (10/10/2008): L eye 2006 Gastroesophageal reflux disease with esophagitis 06/09/2008 Diabetic ulcer of toe of lef t foot associated with type 2 diabetes mellitus, with necrosis of bone 05/24/2008 Unspecified essential hypertension 05/24/2008 Charcot foot 03/30/2008 Overview (05/24/2008): Bilateral due to his diabetic peripheral Benign neoplasm of colon 10/07/2007 Overview (03/16/2013): Colonoscopy 03/2013 normal repeat in 5 years Chronic constipation 07/13/2006 STATUS POST CABG 07/09/06 07/10/2006 Overview (07/14/2006): Coronary artery bypass x4, left internal mammary artery to left anterior descending, saphenous vein to obtuse marginal 1, saphenous vein to obtuse marginal 2, saphenous vein to diagonals. Pure hypercholesterolemia Acute myocardial infarction, unspecified site, episode of care unspecified Overview (07/10/2006): Non Q WI 06/14 Atherosclerosis of robinson co ronary artery of robinson heart with angina pectoris Overview (07/10/2006): Status post CABG x4; 07/09/06 Personal history of contact with and (suspected) exposure to asbestos Overview (10/07/2007): With abnl lung nodules Chronic airway obstruction, not elsewhere classi fied Anemia of chronic renal failure Resolved Problems Problem Noted Date Diagnosed Date Resolved Date Pleural effusion 09/27/2024 09/27/2024 Hemorrhage of pseudoaneurysm of left brachiocephalic arteriovenous fistula 09/27/2024 Roni hematuria 02/16/2024 09/27/2024 Anaphylactic reaction due to adverse effect of correct drug or medicament properly administered, sequela 10/08/2022 09/27/2024 COVID 02/06/2021 02/06/2021 Diabetic retinopathy associa fareed with type 2 diabetes mellitus 02/06/2021 02/06/2021 Iron deficiency anemia, unspecified 10/19/2020 02/06/2021 Severe obesity (BMI 35.0-39. 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 10/31/2015 09/27/2024 Methicillin susceptible Stap hylococcus aureus infection 10/31/2015 09/27/2024 DM Renal Manif Type II 01/18/201309/03 DM Renal Manif Type II 01/18/201309/03 DM Renal Manif Type II 06/10/200809/03 Overview (06/10/2008): Creatinine 1.4 -1.5 Encounters Date Type Department Care Team Description 12/08/2024 Telephone [facility] [place] [address] [place] [address] Corrine Winters RN Appointment 12/07/2024 4:25 PM CDT Ancillary Procedure [address] [address] Arrived 12/07/2024 3:55 PM CDT Office Visit [facility] [address] [place] [phone] Treva Wilson NP Finger Pain/problem (Right pointer finger. ) 12/06/2024 3:00 PM CDT Telemedicine [facility] [address] [place] [address] Jonah Aguero NP Telehealth (Virtual Visit; no vitals taken); Wound Check 12/06/2024 Travel 11/15/2024 11:30 AM CDT Office Visit [facility] [address], [place] [address] Jonah Aguero NP Wound Check 11/15/2024 Travel 11/09/2024 4:05 PM CDT Office Visit [facility] [address] [place] [address] Arnie Clemens MD Derm Problem (Right index finger/fingernail is becoming painful/Has been using over the counter fungal treatment without improvement); Finger Pain/problem 11/09/2024 Travel 10/18/2024 1:45 PM CDT Orders Only [facility] [address] [place] [address] 1 scan: (1-Ord) US ARTERIAL LOWER EXTREMITY LEFT ([id number]) 10/18/2024 Travel 10/13/2024 1:30 PM CDT Telemedicine [facility] [address], [place] [address] Jonah Aguero NP Telehealth (Virtual Visit; no vitals taken) 10/05/2024 Telephone [facility] [address] [place] [address] Jonah Aguero NP DME Supply (Has not received supplies- needs f/u) 09/27/2024 2:30 PM CDT Office Visit [facility] [address], [place] [address] Jonah Aguero NP Consult (Left foot wounds/) 09/27/2024 Travel 09/22/2024 1:15 PM CDT Office Visit [facility] [address] [address] [facility] [place] [phone] Braulio Philippe DPM Follow Up (Left 2 week surgical wound follow up) 09/22/2024 Travel 09/15/2024 1:00 PM CDT Office Visit [facility] [address] [place] [address] Trey Carlson MD Hospital F/U (sores on legs /itching - something to help sleep ) 09/15/2024 Travel 09/12/2024 Patient Outreach [facility] [address] [place] [address] Yenny Pham, RN Primary RN Care Management; Hospital F/U (LACE 63/) 09/10/2024 Telephone [facility] [address] [place] [address] Braulio Philippe, DPM CALL BACK (rescheduling 09/22/2024 post op appointment time) 09/04/2024 12:29 AM CDT - 09/09/2024 7:00 PM CDT Hospital Encounter [facility] [address] [place] [address] [facility] Hospitalists Of Phillip Mcpherson MD Wood, Glen Fisher MD Cellulitis of left lower extremity (Primary Dx) Discharge Disposition: Home Self Care from Last 3 Months Immunizations Immunization Administration Dates Next Due COVID-19 vaccine (Pfizer-Bio [...] or isolated from those around you? 0 09/05/2024 Financial Resource Strain Answer Date R ecorded Difficulty of Paying Living Expenses 3 05/19/2024 Difficulty of Paying Living Expenses Not on file 05/19/2024 Food Insecurity Answer Date Recorded Do you worry your food will run out before you are able to buy more? 1 09/05/2024 Transportation Needs Answer Date Record ed Does lack of transportation keep you from medica l appointments? 1 09/05/2024 Does lack of transportation keep you from work, meetings or getting things that you need? 1 09/05/2024 Housing Stability Answer Date Recorded What is your housing situation today? 1 09/05/2024 Interpersonal Safety Answer Date Record ed Are you being hit, kicked, p ushed or yelled at (see row info)? No 09/05/2024 Interpersonal Safety Abuse 12 - 18 Not on file 09/05/2024 Interpersonal Safety Ambulatory Vulnerability No t on file 09/05/2024 Utilities Answer Date Recorded Do you have trouble paying f or utilities (for example, heat, electricity, water, phone)? 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 Gender Identity Not on file Sexual Orientation Not on file Occupation Industry Job Start Date Job End Date retired Not on file Not on file Not on file Obstetrics History Last Filed Vital Signs Vital Sign Reading Time Taken Comments Blood Pressure 111/53 12/07/2024 3:55 PM CDT Pulse 69 12/07/2024 3:55 PM CDT Temperature 36.5 C (97.7 F) 12/07/2024 3:55 PM CDT Respiratory Rate 16 12/07/2024 3:55 PM CDT Oxygen Saturation 96% 12/07/2024 3:55 PM CDT Inhaled Oxygen Concentration - - Weight 77.6 kg (171 lb) 09/22/2024 1:30 PM CDT Height 182.9 cm (6') 09/03/2024 5:30 PM CDT Body Mass Index 23.19 09/03/2024 5:30 PM CDT Plan of Treatment Upcoming Encounters Date Type Department Care Team (Late st Contact Info) Description 12/13/2024 1:45 PM CDT Office Visit [facility] [address] [place] [address] Anna Marie Oglesby DO [address] [place] [address] 01/03/2025 11:30 AM CDT Office Visit [facility] [address] [place] [address] Jonah Aguero NP [address] [place] [address] 01/24/2025 1:00 PM CDT Orders Only [facility] [address] [address] 01/24/2025 1:45 PM CDT Orders Only [address] [address] 01/31/2025 1:00 PM CDT Office Visit [facility] [address] [place] [address] Sneha De La Cruz MD [address] [place] [address] 02/15/2025 11:30 AM CDT Cardiac Device Check [facility] at [address] [address] Health Maintenance Due Date Last Done Comments RSV vaccine for adults or (1 - 1-dose 75+ series) 2013 Pneumococcal series for age 50+ (3 of 3 - PPSV23, PCV20 or PCV21) 06/06/2015 04/11/2015, 03/23/2013, 08/25/2003, Additional history exists Hepatitis B series for 19+ ( 5 of 5 - Risk Dialysis Recombivax 3-dose series) 03/25/2022 03/25/2021, 01/28/2021, 12/31/2020, Additional history exists COVID-19 vaccine series ( season) 2024 03/17/2022, 10/10/2021, 04/04/2021, Additional history exists Depression screening for age 12+ 01/11/2025 01/12/2024, 11/05/2022, 11/05/2022, Additional history exists Medicare Wellness for age 65+ 01/12/2025, 11/04/2022, 05/19/2019 Influenza Vaccine (#1) 2025 , 03/10/2022, 03/09/2021, Additional history exists BMI (ht and wt on same day) for age 18+ 08/30/2025 08/30/2024, 08/16/2024, 03/03/2024, Additional history exists Tetanus booster 12/18/2032 12/18/2022, 06/09, 03/24/2008, Additional history exists Zoster (shingles) series for age 50+ Completed 09/18/2020, 03/15/2020, 06/08/2013, Additional history exists Medical Devices Implanted Type Area Agricultural Chemicals Inspector Device Identifier Shelf Expiration Date Model / Serial / Lot Screw Sm Joint 3.5x80mm Os Slf Tppng Bob - [id number] Implanted:Qty: 1 on 04/15/2015 by Rj Bui MD at [facility] Left: Leg [employer] [id number]# / / Screw Sm Joint 4x85mm Axsos Lock Slf Tppng [address] - [id number] Implanted:Qty: 1 on 04/15/2015 by Rj Bui MD at [facility] Left: Leg [employer] [id number]# / / Screw Sm Joint 3.5x75mm Os Slf Tppng Bob - [id number] Implanted:Qty: 1 on 04/15/2015 by Rj Bui MD at [facility] Left: Leg [employer] [id number]# / / Screw Sm Joint 3.5x85mm Os Slf Tppng Bob - [id number] Implanted:Qty: 1 on 04/15/2015 by Rj Bui MD at [facility] Left: Leg [employer] [id number]# / / Plate Tib Lt 10 Hole Axs[employer] Prox Lateral - [id number] Implanted:Qty: 1 on 04/15/2015 by Rj Bui MD at [facility] Left: Leg [employer] [id number]# / / Screw Sm Joint 3.5x28mm Os Slf Tppng Bob - [id number] Implanted:Qty: 1 on 04/15/2015 by Rj Bui MD at [facility] Left: Leg [employer] [id number]# / / Screw Sm Joint 3.5x30mm Os Slf Tppng Bob - [id number] Implanted:Qty: 1 on 04/15/2015 by Rj Bui MD at [facility] Left: Leg [employer] [id number]# / / Screw Sm Joint 3.5x32mm Os Slf Tppng Bob - [id number] Implanted:Qty: 1 on 04/15/2015 by Rj Bui MD at [facility] Left: Leg [employer] [id number]# / / Screw Sm Joint 4x26mm Axs[employer] Lock Slf Tppng [address] - [id number] Implanted:Qty: 1 on 04/15/2015 by Rj Bui MD at [facility] Left: Leg [employer] [id number]# / / Explanted Type Area Agricultural Chemicals Inspector Device Identifier Shelf Expiration Date Model / Serial / Lot K-Wire [employer] 10pk - [id number] Explanted:Qty: 2 on 04/15/2015 at [facility] Left: Leg [employer] [id number]# / / Procedures Procedure Name Priority Date/Time Associated Diagnosis Comments XR FINGER 3 VIEWS RIGHT STAT 12/07/2024 4:31 PM CDT Skin infection Open wound of finger, initial encounter US ARTERIAL LOWER EXTREMITY LEFT Routine 10/18/2024 2:47 PM CDT PAD (peripheral artery disease) GLUCOSE METER Timed 09/09/2024 6:24 AM CDT from Last 3 Months Results * XR FINGER 3 VIEWS RIGHT (12/07/2024 4:31 PM CDT) Anatomical Region Laterality Modality Finger Computed Radiogr aphy Narrative 12/08/2024 11:42 AM CDT For Patients: As a result of the Cures Act, medical imaging exams and procedure reports are released immediately into your electronic medical record. You may view this report before your referring provider. If you have questions, please contact your health care provider. Indication: Skin infection. Open wound. Technique: Radiographs of the right finger. Comparison: None. Findings/impression: No acute fractures. No traumatic subluxation. Significant soft tissue swelling about the 2nd proximal interphalangeal joint. No significant erosive/destructive changes. Advanced degenerative changes involving the interphalangeal joints. Widespread vascular calcifications. Signed by: Tarun Gray MD @12/07/2024 6:54:50 PM us Treva Wilson NP GENERAL IMAGING Final Result * US ARTERIAL LOWER EXTREMITY LEFT (10/18/2024 2:47 PM CDT) Anatomical Region Laterality Modality LEGS, LEG L Ultrasound 10/18/2024 1:36 PM CDT Narrative 10/18/2024 4:20 PM CDT VASCULAR ULTRASOUND REPORT SHERYL SERRANO : 1940 Study Date: 10/18/2024 1:36:11 PM Age: 84 years Tech: [id number] Gender: M Referring MD: SNEHA DE LA CRUZ Site: [facility] Study performed: Lower extremity duplex US, (left). Indication for study: Follow-up known PAD TECHNIQUE: Lower/upper extremity arteries were examined per exam protocol by duplex ultrasound, color-flow and spectral Doppler. Peak systolic velocities (PSV), Doppler waveform quality, velocity ratios and vessel size in cm, were documented at protocol specific sites. Physiologic data including segmental pressures, ankle/brachial index (RTIA), digit PPG recordings, laser Doppler flowmetry, transcutaneous oximetry, and digit temperatures were documented at sites per exam protocol and test requirements. IMPRESSION: 1. Evaluation of the lower left extremity shows 50-74% stenosis in the distal common femoral artery and mid/distal superficial femoral artery with monophasic waveforms distal to the mid-SFA stenosis. 2. Occluded right DPA, otherwise monophasic pedal pulses bilaterally. COMPARISON: Compared to prior study 09/04/2024, newly noted 50-74% stenosis in the right proximal ORACLE BUSINESS ANALYST and mid/distal SFA. FINDINGS: RITA was not performed due to previous noncompressibility. 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 There is 50-74% stenosis in the left distal common femoral artery and mid superficial femoral artery. +--------+ + + RIGHT Velocity cm/s Phasicity +--------+ + + SERVICE DESK SPECIALIST DST 75 monophasic +--------+ + + ELIZABETH DST 39 monophasic +--------+ + + DPA 0 occluded +--------+ + + + + + + + +--------+-----+ LEFT Velocity cm/s PRE POST Phasicity Stenosis Ratio Velocity cm/s Velocity Phasicity cm/s Phasicity + + + + + +--------+-----+ ORACLE BUSINESS ANALYST PRX 77 multiphasic + + + + + +--------+-----+ ORACLE BUSINESS ANALYST DST 155 77 100 stenotic 50-74% 2.0 + + + + + +--------+-----+ PFA 100 multiphasic + + + + + +--------+-----+ SFA PRX 172 multiphasic + + + + + +--------+-----+ SFA MID 125 multiphasic + + + + + +--------+-----+ SFA MID 210 83 68 stenotic 50-74% 2.5 DST + + + + + +--------+-----+ SFA DST 66 monophasic + + + + + +--------+-----+ RADHA PRX 89 monophasic + + + + + +--------+-----+ RADHA DST 103 monophasic + + + + + +--------+-----+ SERVICE DESK SPECIALIST DST 86 monophasic + + + + + +--------+-----+ ELIZABETH DST 67 monophasic + + + + + +--------+-----+ DPA 45 monophasic + + + + + +--------+-----+ Criteria: Stenosis V. Ratio Mild <50% <2.0 Moderate 50-74% > or = 2.0 Severe 75-99% > or = 4.0 Occluded 100% no detectable flow Arron Durand MD. Electronically signed on 10/18/2024 4:20:19 PM This study was performed and interpreted by a service accredited by the Intersocietal Accreditation Commission (IAC/Vascular), [email or web address] Report generated by [employer]. Final Procedure Note Arron Durand MD - 10/18/2024 VASCULAR ULTRASOUND REPORT SHERYL SERRANO : 1940 Study Date: 10/18/2024 1:36:11 PM Age: 84 years Tech: MICAELA Gender: M Referring MD: SNEHA DE LA CRUZ Site: [facility] Study performed: Lower extremity duplex US, (left). Indication for study: Follow-up known PAD TECHNIQUE: Lower/upper extremity arteries were examined per exam protocol by duplexultrasound, color-flow and spectral Doppler. Peak systolic velocities(PSV), Doppler waveform quality, velocity ratios and vessel size in cm,were documented at protocol specific sites. Physiologic data includingsegmental pressures, ankle/brachial index (RITA), digit PPG recordings,laser Doppler flowmetry, transcutaneous oximetry, and digit temperatureswere documented at sites per exam protocol and test requirements. IMPRESSION: 1. Evaluation of the lower left extremity shows 50-74% stenosis in thedistal common femoral artery and mid/distal superficial femoral arterywith monophasic waveforms distal to the mid-SFA stenosis. 2. Occluded right DPA, otherwise monophasic pedal pulses bilaterally. COMPARISON: Compared to prior study 09/04/2024, newly noted 50-74% stenosis in theright proximal ORACLE BUSINESS ANALYST and mid/distal SFA. FINDINGS: RITA was not performed due to previous noncompressibility. TBI notperformed due to multiple toe wounds and toe amputations. There is 50-74% stenosis in the left distal common femoral artery and midsuperficial femoral artery. +--------+ + + RIGHT Velocity cm/s Phasicity +--------+ + + SERVICE DESK SPECIALIST DST 75 monophasic +--------+ + + ELIZABETH DST 39 monophasic +--------+ + + DPA 0 occluded +--------+ + + + + + + + +--------+-----+ LEFT Velocity cm/s PRE POST Phasicity Stenosis Ratio Velocity cm/s Velocity Phasicity cm/s Phasicity + + + + + +--------+-----+ ORACLE BUSINESS ANALYST PRX 77 multiphasic + + + + + +--------+-----+ ORACLE BUSINESS ANALYST DST 155 77 100 stenotic 50-74% 2.0 + + + + + +--------+-----+ PFA 100 multiphasic + + + + + +--------+-----+ SFA PRX 172 multiphasic + + + + + +--------+-----+ SFA MID 125 multiphasic + + + + + +--------+-----+ SFA MID 210 83 68 stenotic 50-74% 2.5 DST + + + + + +--------+-----+ SFA DST 66 monophasic + + + + + +--------+-----+ RADHA PRX 89 monophasic + + + + + +--------+-----+ RADHA DST 103 monophasic + + + + + +--------+-----+ SERVICE DESK SPECIALIST DST 86 monophasic + + + + + +--------+-----+ ELIZABETH DST 67 monophasic + + + + + +--------+-----+ DPA 45 monophasic + + + + + +--------+-----+ Criteria: Stenosis V. Ratio Mild <50% <2.0 Moderate 50-74% > or = 2.0 Severe 75-99% > or = 4.0 Occluded 100% no detectable flow Arron Durand MD. Electronically signed on 10/18/2024 4:20:19 PM This study was performed and interpreted by a service accredited by theIntersocietal Accreditation Commission (IAC/Vascular),[email or web address] Report generated by [employer]. Final us Sneha De La Cruz MD Final R esult * (ABNORMAL) GLUCOSE METER (09/09/2024 6:24 AM CDT) GLUCOSE METER 260(H) 65 - 100 mg/dL 09/09/2024 6:25 AM CDT [facility] Blood BLOOD SPECIMEN / Unknown 09/09/2024 6:24 AM CDT 09/09/2024 6:25 AM CDT us Phillpi Mcpherson MD CHEMISTRY Final Result [facility] 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 Power of Php Programmer 06/05/2019 06/05/2019 Healthcare Directive 06/05/2019 019 Power of Php Programmer 07/19/2006 * DNR (Latest Code Status on File) Date Activated Date Inactivated Comments 09/04/2024 2:20 AM 09/09/2024 10:25 PM Question Answer Comments Code Status Discussion: Reviewed Preferences * Full Code Date Activated Date Inactivated Comments 09/04/2024 12:46 AM 09/04/2024 2:20 AM Question Answer Comments Code Status Discussion: Reviewed Preferences * Full Code Date Activated Date Inactivated Comments 05/25/2024 5:18 [...] Comments Code Status Discussion: Discussed Care Teams Client Account Manager Relationship Specialty Start Date End Date Anna [place] [address] PCP - General Family Practice 12/05/24 Jonah Aguero NP [address] [place] [address] Nurse Practitioner Nurse Practitioner - Adult 09/27/24
--- NOTE | 2024-12-09 16:00 | ED.GENADULT ---
HPI - General Adult General Date Seen: 12/09/24 Chief complaint: Lower Extremity Swelling Stated complaint: hematoma - swelling - weakness Time Seen by Provider: 12/09/24 15:15 History of Present Illness HPI narrative: Patient is an 84-year-old dialysis patient here from dialysis with concerns about his left leg. History is provided by his . 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 More recently, about 5 months ago, he hit that leg on part of their car, and sustained hematoma. She says that the hematoma has been stable until a couple of weeks ago when he started to complain about it being more painful. She says that the wound care is clinic said that it was close to ?popping, and warned her what to watch for, how to manage it etcetera. She said in fact it did pop shortly thereafter, she expressed a lot of clots out of it and she says a translucent fluid came out as well. She denies that there was any purulence. Since then, she notes that he has developed swelling in the leg. He was at dialysis today, and she says the dialysis nurse recommended that he be seen in the ER because he does not like the way the like looked. She does not feel that it looks dramatically different aside from the swelling. There has been some chronic redness since developing the hematoma. He has chronic redness in the foot as well. These are unchanged. The edema in the left leg however she says is new/worse over the past few days. He has not had fevers, but she does feel that he is more weak/fatigued. [facility], normally they would go for 6-8 hours. She said that just for our seem to wipe him out for an today she had wake him up to go to his dialysis appointment. He did not complete dialysis because he was having pain. She says that he does okay when he does not finish dialysis and that he can just go to his next round on Thursday if needed. Related Data Home Medications ?Medication ?Instructions ?Recorded ?Confirmed acetaminophen 650 mg 650 mg PO Q8H PRN 12/27/22 05/24/24 tablet,extended release (Tylenol Arthritis Pain) aspirin 81 mg capsule 81 mg PO DAILY 12/27/22 05/23/24 coenzyme Q10 100 mg capsule (Co 100 mg PO DAILY 12/27/22 05/24/24 Q-10) guaifenesin 100 mg/5 mL oral liquid 100 mg PO Q4H PRN coughing 12/27/22 05/24/24 insulin aspart U-100 100 unit/mL 5 unit subcut TIDWM 12/27/22 05/23/24 (3 mL) subcutaneous pen (Novolog FlexPen U-100 Insulin aspart) loratadine 10 mg tablet (Claritin) 10 mg PO DAILY 12/27/22 05/24/24 montelukast 10 mg tablet 10 mg PO HS 12/27/22 05/24/24 (Singulair) nitroglycerin 0.4 mg sublingual 0.4 mg sublingual Q5M PRN 12/27/22 05/24/24 tablet (Nitrostat) sennosides 8.6 mg capsule (senna) 8.6 - 17.2 mg PO BID 12/27/22 05/24/24 B complex 11-folic acid 1 mg-C 100 1 tab PO BID 10/06/23 05/24/24 mg-biotin 300 mcg-zinc 50 mg tablet (Dialyvite) albuterol sulfate 90 mcg/actuation 2 inh inhalation Q4H PRN 10/06/23 05/24/24 aerosol inhaler (Ventolin HFA) cholecalciferol (vitamin D3) 50 50 mcg PO DAILY 10/06/23 05/24/24 mcg (2,000 unit) capsule cyclosporine 0.05 % eye drops in a 1 drp ophthalmic (eye) Q12H 10/06/23 05/24/24 dropperette (Restasis) fluticasone propionate 50 1 spray intranasal DAILY PRN 10/06/23 05/23/24 mcg/actuation nasal spray,suspension (24 Hour Allergy Relief) insulin glargine 100 unit/mL (3 18 unit subcut HS 10/06/23 05/24/24 mL) subcutaneous pen (Lantus Solostar U-100 Insulin) krill 1,000 mg-omega-3 230 mg-dha 1 cap PO DAILY 10/06/23 05/24/24 60 xe-gap-twtnzdfsc-astaxan capsule (MegaRed [place]-3 Krill Oil) pantoprazole 40 mg tablet,delayed 40 mg PO DAILY 10/06/23 05/24/24 release pravastatin 80 mg tablet 80 mg PO HS 10/06/23 05/24/24 vitamin E 268 mg (400 unit) capsule 268 mg PO DAILY 10/06/23 05/24/24 clopidogrel 75 mg tablet 75 mg PO DAILY 05/24/24 05/24/24 diphenhydramine HCl 25 mg capsule 25 mg PO Q4H PRN 05/24/24 05/24/24 (Aler-Cap) fluticasone 100 mcg-salmeterol 50 1 inh inhalation BID 05/24/24 05/24/24 mcg/dose blistr powdr for inhalation (Wixela Inhub) hydrocortisone 2.5 % topical cream 1 applic topical BID PRN 05/24/24 05/24/24 levothyroxine 175 mcg capsule 175 mcg PO DAILY 05/24/24 05/24/24 magnesium hydroxide 400 mg/5 mL 30 ml PO DAILY PRN 05/24/24 05/24/24 oral suspension (Dulcolax (magnesium hydroxide)) methyl salicylate 15 %-menthol 10 1 applic topical TID PRN 05/24/24 05/24/24 % topical cream (Analgesic [place] (m.salic-menthol)) tiotropium bromide 18 mcg capsule 1 cap inhalation DAILY 05/24/24 05/24/24 with inhalation device (Spiriva with HandiHaler) midodrine 10 mg tablet 10 mg PO DAILY 07/12/24 07/12/24 Previous Rx's ?Medication ?Instructions ?Recorded prednisone 20 mg tablet 20 mg PO DAILY #7 tabs 07/05/24 Allergies Allergy/AdvReac Type Severity Reaction Status Date / Time doxycycline Allergy Unknown Verified 12/09/24 15:14 atorvastatin (From Lipitor) Allergy Verified 12/09/24 15:14 hydrocodone Allergy Verified 12/09/24 15:14 lisinopril Allergy Verified 12/09/24 15:14 metoclopramide (From Reglan) Allergy Verified 12/09/24 15:14 omeprazole Allergy Verified 12/09/24 15:14 diphenhydramine AdvReac Unknown Agitated Verified 12/09/24 15:14 Review of Systems Status of ROS: Reports: 6 or more systems reviewed and unremarkable except as noted in History and below [facility] Medical History Frailty syndrome in geriatric patient ?R54 - Age-related physical debility (ICD-10) Coronary artery disease ?I25.10 - Atherosclerotic heart disease of campo coronary artery without angina pectoris (ICD-10) Recurrent UTI ?N39.0 - Urinary tract infection, site not specified (ICD-10) Secondary hyperparathyroidism (of renal origin) ?N25.81 - Secondary hyperparathyroidism of renal origin (ICD-10) Pneumonia due to COVID-19 virus ?U07.1 - COVID-19 (ICD-10) ?J12.82 - Pneumonia due to coronavirus disease 2019 (ICD-10) Severe obesity ?E66.01 - Morbid (severe) obesity due to excess calories (ICD-10) Mobitz type 1 second degree AV block ?I44.1 - Atrioventricular block, second degree (ICD-10) Calculus of gallbladder without cholecystitis ?K80.20 - Calculus of gallbladder without cholecystitis without obstruction (ICD-10) Anemia of chronic renal failure ?N18.9 - Chronic kidney disease, unspecified (ICD-10) ?D63.1 - Anemia in chronic kidney disease (ICD-10) Allergic rhinitis ?J30.9 - Allergic rhinitis, unspecified (ICD-10) DVT (deep venous thrombosis) ?I82.409 - Acute embolism and thrombosis of unspecified deep veins of unspecified lower extremity (ICD-10) Hypothyroidism ?E03.9 - Hypothyroidism, unspecified (ICD-10) Pulmonary emphysema ?J43.9 - Emphysema, unspecified (ICD-10) Obstructive sleep apnea ?G47.33 - Obstructive sleep apnea (adult) (pediatric) (ICD-10) Colon polyp ?K63.5 - Polyp of colon (ICD-10) Detached retina, left ?H33.22 - Serous retinal detachment, left eye (ICD-10) GERD with esophagitis ?K21.00 - Gastro-esophageal reflux disease with esophagitis, without bleeding (ICD-10) Hypertension ?I10 - Essential (primary) hypertension (ICD-10) Diabetic foot ulcer ?E11.621 - Type 2 diabetes mellitus with foot ulcer (ICD-10) ?L97.509 - Non-pressure chronic ulcer of other part of unspecified foot with unspecified severity (ICD-10) Charcot foot due to diabetes mellitus ?E11.610 - Type 2 diabetes mellitus with diabetic neuropathic arthropathy (ICD-10) Pulmonary asbestosis ?J61 - Pneumoconiosis due to asbestos and other mineral fibers (ICD-10) Myocardial infarction ?I21.9 - Acute myocardial infarction, unspecified (ICD-10) Hypercholesterolemia ?E78.00 - Pure hypercholesterolemia, unspecified (ICD-10) End stage renal disease on dialysis ?N18.6 - End stage renal disease (ICD-10) ?Z99.2 - Dependence on renal dialysis (ICD-10) DM (diabetes mellitus), type 2 ?E11.9 - Type 2 diabetes mellitus without complications (ICD-10) COPD (chronic obstructive pulmonary disease) ?J44.9 - Chronic obstructive pulmonary disease, unspecified (ICD-10) Surgical History S/P ORIF (open reduction internal fixation) fracture ?Z98.890 - Other specified postprocedural states (ICD-10) ?Z87.81 - Personal history of (healed) traumatic fracture (ICD-10) S/P CABG x 4 ?Z95.1 - Presence of aortocoronary bypass graft (ICD-10) Family History Brother Leukemia Mother Oral cancer Father Alzheimers disease Social History Narrative: 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 What is your current living situation?: I presently have a place to live Problems where you live: no known problems Problems where you live details: n/a In the past 12 months, utilities in danger of being shut off: no In past 12 months, lack of transportation kept you from medical appts, meetings, work, or getting things needed for daily living: no In the past 12 mos, have been you worried that your food would run out before you had money to buy more?: never true In the past 12 mos, the food you bought just didn't last and you didn't have money to buy more?: never true Smoking Status: Former smoker Do you use any of these nicotine containing products: None Second hand tobacco smoke exposure: No How often do you have a drink containing alcohol: 2-4 times a month How often do you have six or more drinks on one occasion: Never AUDIT-C Alcohol total score: 2 Non-prescribed substance use: denies use Non-prescribed substance use details: Uses CBD liquid for pain and itching How often does anyone, including family, friends and others, physically hurt you: never How often does anyone, including family, friends and others, insult or talk down to you: never How often does anyone, including family, friends and others, threaten you with harm: never How often does anyone, including family, friends and others, scream or curse at you: never service: No Exam Narrative: Exam Narrative: Vital signs reviewed In general, alert, nontoxic elderly male. Head: Normocephalic, atraumatic. Eyes: Sclera clear. Pupils equal and reactive. ENT: Mucous membranes moist. Neck: Supple without adenopathy. Heart: Regular rate and rhythm without murmur. Lungs: Clear. No increased work of breathing, crackles or wheezes. Abdomen: Soft, nontender to palpation. Extremities: The left lower extremity shows fairly chronic appearing rubor of the anterior lower leg and foot, it is mildly warm to palpation. He has a dressing on the prior amputation site, this was partially removed and per his this appears stable. He has another dressing over this area where the hematoma popped, there is a little bit of pink to yellow tinged fluid that I can express out of this, no purulence. The lower extremity on the left is edematous to the knee, I do not feel any crepitus or subcu air. Neurologic: Alert, conversant. He is hard of hearing and has a little bit of cognitive decline, he does participate in conversations with his but his provides the entire history. Skin: Warm, dry well perfused. Affect: Normal. Const: Vital Signs, click to edit/add: Vital Signs - 24 hr 12/09/24 15:06 12/09/24 15:54 12/09/24 16:00 Temperature 98.4 F Pulse Rate 70 69 Pulse Rate [Pulse Oximeter] 74 Respiratory Rate 12 Blood Pressure [Ri ght Upper Arm] 99/45 L Pulse Oximetry 92 92 95 Oxygen Delivery Me thod Room Air 12/09/24 16:15 12/09/24 16:30 12/09/24 16:45 Temperature Pulse Rate 69 70 70 Pulse Rate [Pulse Oximeter] Respiratory Rate Blood Pressure [Ri ght Upper Arm] Pulse Oximetry 93 92 95 Oxygen Delivery Me thod 12/09/24 17:00 12/09/24 17:15 12/09/24 17:30 Temperature Pulse Rate 69 70 72 Pulse Rate [Pulse Oximeter] Respiratory Rate Blood Pressure [Ri ght Upper Arm] Pulse Oximetry 93 91 92 Oxygen Delivery Me thod 12/09/24 17:45 12/09/24 18:00 12/09/24 18:15 Temperature Pulse Rate 70 70 79 Pulse Rate [Pulse Oximeter] Respiratory Rate Blood Pressure [Ri ght Upper Arm] Pulse Oximetry 93 94 Oxygen Delivery Me thod Course Course ED Course: Patient presents via dialysis because of concerns about his left lower extremity. Somewhat difficult to assess whether not the leg looks worse, the dialysis nurse was concerned but it does not sound like he had seen the leg prior, and his who sees the leg regularly does not seem to be overly concerned. However, he is obviously medically fragile, his does feel that he is a little weaker and doing somewhat worse from that standpoint over the past couple of days, and the swelling does appear to be new. He does not have prior history of DVT. He is afebrile here, blood pressure is on the low side but I think normal for a dialysis patient. I think it is worthwhile to do some lab work, will get a plain x-ray to start, can get more advanced imaging if workup suggest that would be useful. Right now I do not see evidence of severe infection. Will order an ultrasound to rule out DVT. Labs are reviewed, white blood cell count is normal at 5, hemoglobin is 8.7 which is stable for him. He has a very minimal left shift with 96% neutrophils. Electrolytes are notable for sodium of 132, potassium is 4. BUN creatinine not surprisingly are elevated. CRP is elevated at 7. Procalcitonin is still pending. I reviewed the x-ray of his left lower extremity, this shows a couple of small foci of air but these are right where he has that wound with this recently ?popped according to his , and this remains open. I do think there is localized to that small open wound. There is no ascending or descending air in the soft tissue. Radiology report reviewed and they note that this could be related to wound although gas-forming infection cannot be ruled out. I discussed this with the patient's , we discussed doing a CT scan, but she agrees that there does seem to be air in this small area and feels comfortable with keeping an eye on things for now. He is already on Keflex which he started a couple of days ago because of concerns about a possible infection on his finger. The ultrasound of his leg was read as negative for DVT. For now, I think it is reasonable to keep him on the Keflex, and see how he does over the next few days to week. He has an appointment scheduled with his primary doctor in a couple of days. His is very familiar with his patterns and with his leg. Discussed with her if at any point she feels he is getting significantly worse, if the weakness seems to get progressively worse or he has new symptoms such as fevers or vomiting, if the leg is markedly more swollen or red, or she just has concerns that he is worsening, she will bring him back for re-evaluation. Vital Signs Vital signs: Initial Vital Signs Temperature 98.4 F 12/09/24 15:06 Temperature Source Temporal Artery Scan 12/09/24 15:06 Pulse Rate 74 12/09/24 15:06 Pulse Rhythm Regular 12/09/24 15:06 Respiratory Rate 12 12/09/24 15:06 Blood Pressure 99/45 L 12/09/24 15:06 Blood Pressure Mean 63 L 12/09/24 15:06 Blood Pressure Position Sitting 12/09/24 15:06 Pulse Oximetry 92 12/09/24 15:06 Oxygen Delivery Method Room Air 12/09/24 15:06 Vital Signs Temperature 98.4 F 12/09/24 15:06 Pulse Rate 74 12/09/24 15:06 Respiratory Rate 12 12/09/24 15:06 Blood Pressure 99/45 L 12/09/24 15:06 Pulse Oximetry 92 12/09/24 15:06 Oxygen Delivery Method Room Air 12/09/24 15:06 Temperature 98.4 F 12/09/24 15:06 Pulse Rate 79 12/09/24 18:15 Respiratory Rate 12 12/09/24 15:06 Blood Pressure 99/45 L 12/09/24 15:06 Pulse Oximetry 94 12/09/24 18:15 Oxygen Delivery Method Room Air 12/09/24 15:06 Medical Decision Making Lab Data Labs: Lab Results 07/04/25 Range/Units 16:03 WBC 5.05 (4.50-11.00) K/uL RBC 2.76 L (4.30-5.90) m/uL Hgb 8.7 L (13.5-17.5) gm/dL Hct 27.0 L (37.0-53.0) % MCV 98 (80-100) fL MCH 32 (26-34) pg MCHC 32 (32-36) gm/dL RDW Coeff of Jordy 22.9 H (11.5-15.5) % Plt Count 170 (140-440) K/uL Neut % (Auto) 76.4 H (42.0-72.0) % Lymph % (Auto) 6.3 L (20-44) % Pacific % (Auto) 13.7 H (0.0-11.0) % Eos % (Auto) 2.8 (0.0-7.0) % Baso % (Auto) 0.6 (0.0-3.0) % Neut # (Auto) 3.90 (1.7-7.0) K/uL Lymph # (Auto) 0.30 L (0.90-2.90) K/uL Pacific # (Auto) 0.70 (0.00-0.90) K/UL Eos # (Auto) 0.14 (0.00-0.50) K/uL Baso # (Auto) 0.03 (0.00-0.30) K/uL Abs Immat Gran (auto) 0.01 (0.00-0.30) K/uL Imm/Tot Granulo (auto) 0.2 % Sodium 132 L (135-149) mmol/L Potassium 4.1 (3.6-5.1) mmol/L Chloride 92 L (96-114) mmol/L Carbon Dioxide 29 (20-32) mmol/L Anion Gap 11 (7-15) mEq/L BUN 35 H (7-30) mg/dL Creatinine 2.8 H (0.5-1.5) mg/dL Estimated Creat Clear 20.78 Estimated GFR 21 ml/min Glucose 140 H (60-115) mg/dL Lactate 0.8 (0.5-1.9) mmol/L Calcium 9.5 (8.4-10.6) mg/dL C-Reactive Protein 7.0 H (0.5-1.0) mg/dL Procalcitonin 0.57 H (<0.50) ng/mL Discharge Plan Discharge Clinical Impression: Left leg swelling Patient Disposition: Home w/ Parent or Adult Condition: Stable Instructions: Cellulitis (ED) Additional Instructions: Continue your current antibiotic. Follow-up with primary care as planned on Thursday. If at any time you feel that he is getting significantly worse, the leg is markedly more red, swollen, or painful, he develops fevers, worsening weakness or confusion, or you just generally feel that he is headed in the wrong direction, please return for re-evaluation. Elevate the leg as much as possible to help with swelling. Prescriptions: No Action insulin aspart U-100 [Novolog FlexPen U-100 Insulin] 100 unit/mL (3 mL) insulin pen 5 unit subcut TIDWM guaifenesin 100 mg/5 mL liquid 100 mg PO Q4H PRN (Reason: coughing) montelukast [Singulair] 10 mg tablet 10 mg PO HS nitroglycerin [Nitrostat] 0.4 mg tablet, sublingual 0.4 mg sublingual Q5M PRN Rx Instructions: do not exceed 3 doses per episode aspirin 81 mg capsule 81 mg PO DAILY loratadine [Claritin] 10 mg tablet 10 mg PO DAILY coenzyme Q10 [Co Q-10] 100 mg capsule 100 mg PO DAILY senna 8.6 mg capsule 8.6 - 17.2 mg PO BID acetaminophen [Tylenol Arthritis Pain] 650 mg tablet extended release 650 mg PO Q8H PRN insulin glargine [Lantus Solostar U-100 Insulin] 100 unit/mL (3 mL) insulin pen 18 unit subcut HS albuterol sulfate [Ventolin HFA] 90 mcg/actuation HFA aerosol inhaler 2 inh inhalation Q4H PRN pantoprazole 40 mg tablet,delayed release (DR/EC) 40 mg PO DAILY pravastatin 80 mg tablet 80 mg PO HS fluticasone propionate [24 Hour Allergy Relief] 50 mcg/actuation spray,suspension 1 spray intranasal DAILY PRN Rx Instructions: administer into each nostril cyclosporine [Restasis] 0.05 % dropperette 1 drp ophthalmic (eye) Q12H Dialyvite [id number] kd-sj-mmp-mg tablet 1 tab PO BID Rx Instructions: administer with a meal [id number]-[id number]-[id number]-hgozsqq-ast [MegaRed [place]-3 Krill Oil] 1,000-230-60 mg capsule 1 cap PO DAILY cholecalciferol (vitamin D3) 50 mcg (2,000 unit) capsule 50 mcg PO DAILY vitamin E 268 mg (400 unit) capsule 268 mg PO DAILY prednisone 20 mg tablet 20 mg PO DAILY Qty: 7 0RF clopidogrel 75 mg tablet 75 mg PO DAILY Analgesic [place] (m.salic-menth) 15-10 % cream 1 applic topical TID PRN diphenhydramine HCl [Aler-Cap] 25 mg capsule 25 mg PO Q4H PRN fluticasone propion-salmeterol [Wixela Inhub] 100-50 mcg/dose blister with device 1 inh inhalation BID hydrocortisone 2.5 % cream 1 applic topical BID PRN levothyroxine 175 mcg capsule 175 mcg PO DAILY magnesium hydroxide [Dulcolax (magnesium hydroxide)] 400 mg/5 mL suspension 30 ml PO DAILY PRN tiotropium bromide [Spiriva with HandiHaler] 18 mcg capsule, w/inhalation device 1 cap inhalation DAILY Rx Instructions: puncture 1 cap using device; one dose = 2 inhalations midodrine 10 mg tablet 10 mg PO DAILY Patient Comments: [NO ORIGINAL SIG] Follow Up/Referrals: Anna Marie Oglesby DO [Primary Care Provider, Family Practice] Stand Alone Forms: [employer] Info Instructions
[2024-12-09 16:10] LABS: Hematocrit 27.0 % (37.0-53.0); Hemoglobin* 8.7 gm/dL (13.5-17.5); Immature Granulocytes Abs Auto 0.01 K/uL (0.00-0.30); Immature Granulocytes Pct Auto 0.2 %; Mean Corpuscular HGB Conc 32 gm/dL (32-36); Mean Corpuscular Hemoglobin 32 pg (26-34); Mean Corpuscular Volume 98 fL (80-100); RDW Coefficient of Variation % 22.9 % (11.5-15.5); Red Blood Count 2.76 m/uL (4.30-5.90); White Blood Count* 5.05 K/uL (4.50-11.00)
[2024-12-09 16:12] LABS: Lactate Sepsis w/Reflex* 0.8 mmol/L (0.5-1.9)
[2024-12-09 16:15] LABS: Lymphocytes Absolute Auto 0.30 K/uL (0.90-2.90); Slide Review Reflex No
[2024-12-09 17:55] LABS: Chloride* 92 mmol/L (96-114); Potassium* 4.1 mmol/L (3.6-5.1); Sodium* 132 mmol/L (135-149)
[2024-12-09 17:58] LABS: Anion Gap 11 mEq/L (7-15); Blood Urea Nitrogen* 35 mg/dL (7-30); Calcium* 9.5 mg/dL (8.4-10.6); Carbon Dioxide* 29 mmol/L (20-32); Creatinine* 2.8 mg/dL (0.5-1.5); Est. Creatinine Clearance* 20.78; Estimated Glomerular Filt Rate 21 ml/min; Glucose* 140 mg/dL (60-115)
[2024-12-09 18:16] LABS: Procalcitonin* 0.57 ng/mL (<0.50)
== END 2024-12-09 18:43 | disposition home or self-care (01) ==
PROVIDERS: Emergency Provider Emergency Medicine; PCP Family Medicine
DX: R22.43 Localized swelling, mass and lump, lower limb, bilateral (principal); Z99.2 Dependence on renal dialysis
CPT/HCPCS: 36415; 73590; 80048; 83605; 84145; 85025; 86140; 93971; 99284; 99285

== ENCOUNTER 2025-01-19 16:51 | Emergency (ER) | payer MEDICARE, OTHER, SELFPAY ==
--- OUTSIDE RECORDS SUMMARY | 2024-11-10 05:18 | XMS_ITS | Encounter Summary ---
Author Name Department of Vetera Affairs [place] Organization Department [place] Address [address] [place] [address] Care Team Providers Care Global Transportation Manager Name Role Phone URVASHI MATHEWS Primary Care [...] Name Patient's Relationship to Policy Blanchard [facility] (WNR) MEDICARE ADVANTAGE [facility] (WNR) Jun 08, 2023 [id number] SHERYL SERRANO PATIENT MEDICARE (WNR) MEDICARE (M) RR PART A Feb 06, 2003 RR PART A [id number] SHERYL SERRANO PATIENT MEDICARE (WNR) MEDICARE (M) RR PART B Feb 06, 2003 RR PART B [id number] SHERYL SERRANO PATIENT MEDICARE PART D (WNR) MEDICARE (M) PART D Jun 08, 2022 PART D [id number] SHERYL SERRANO PATIENT [employer] MEDICARE SECONDARY (NO B EXC) UPREH S Jun 08, 2009 [id number] SHERYL SERRANO PATIENT Selected Encounter This section [...] 20 appointments. The data comes from all [facility]. Appointment Date/Time Appointment Type Appointme nt Facility Name Jan 05, 2025 02:00 PM [place] [facility] Jan 26, 2025 01:00 PM AMBULATORY - NONE [place] [facility] Feb 02, 2025 02:00 PM AMBULATORY - [place] [facility] Feb 10, 2025 07:00 AM AMBULATORY - NONE [place] [facility] Mar 08, 2025 07:00 AM AMBULATORY - NONE [place] [facility] Mar 08, 2025 07:30 AM AMBULATORY - NONE [place] [facility] Active, Pending, and Scheduled Orders This section includes a listing of several types of active, pending, and scheduled orders, including clinic medications orders, diagnostic test orders, procedure orders and consult orders; where the start date of the order is 45 days before the date of the Encounter or 45 days after the date of theEncounter. The data comes from all [facility]. Test Date/Time Test Type Test Details Facility Name Oct 03, 2024 01:03 PM Consult Order COMMUNITY CARE-OPHTHALMOLOGY [facility] Retail Cosmetics Sales Counter Manager's [facility] October 10, 2024 08:31 AM Consult Order COMMUNITY CARE-HEMODIALYSIS [facility] Retail Cosmetics Sales Counter Managers [facility] October 10, 2024 08:32 AM Consult Order [facility]-NEPHROLOGY DIALYSIS OVERSIGHT [facility] Social History: Smoking Status (Most current) and Tobacco Use (All prior to encounter date) This section includes the most current, and the historical, smoking and tobacco- related health factors from the [place] facility where the Encounter took place. Current Smoking Status This section includes the most current smoking, or tobacco-related health factor, from the [place] facility where the Encounter took place. Date/Time Current Smoking Status Comment Billie ity Dec 31, 2023 01:30 PM VA-TOBACCO FORMER USER [facility] Tobacco Use History This section includes a history of the smoking, or tobacco-related health factors, that were collected on or before the date of the Encounter. The data comes from the [facility] where the Encounter took place. Date/Time Smoking Status/Tobacco Use Comment F acility Dec 31, 2023 01:30 PM VA-TOBACCO QUIT 15 YRS OR MORE [facility] Dec 18, 2022 01:00 PM VA-TOBACCO FORMER USER [facility] Dec 18, 2022 01:00 PM VA-TOBACCO QUIT 15 YRS OR MORE [facility] November 05, 2021 10:00 AM VA-TOBACCO FORMER USER [facility] November 05, 2021 10:00 AM VA-TOBACCO QUIT 15 YRS OR MORE [facility] Dec 10, 2018 12:57 PM VA-TOBACCO FORMER USER [facility] Dec 10, 2018 12:57 PM VA-TOBACCO QUIT 15 YRS OR MORE [facility] Feb 25, 2018 12:23 PM VA-TOBACCO FORMER USER [facility] Feb 25, 2018 12:23 PM VA-TOBACCO QUIT 15 YRS OR MORE [facility] Apr 10, 2015 02:55 PM FORMER TOBACCO USER 7Y OR GREATE R [facility] Apr 27, 2014 10:17 AM FORMER TOBACCO USER 7Y OR GREATE R [facility] Jun 18, 2006 07:23 AM FORMER TOBACCO USER 7Y OR GREATE R [facility] Advance Directives: All historical and current Section Date Range: From patient's date of to the date document was created. This section includes ALL of a patient's completed or amended [place] Advance and Rescinded Directives. The entries below indicate that a directive exists for the patient, but an actual copy is not included with this document. The data comes from all [facility]. Date Advance Directives Provider Source May 23, 2003 ADVANCE DIRECTIVE [facility] Encounter Notes: All associated encounter notes This section contains the clinical notes associated to the Encounter. Date/Time Encounter Note(s) Provider Source Jan 04, 2025 11:07 AM ADDENDUM: LOCAL TITLE: Addendum STANDARD TITLE: ADDENDUM DATE OF NOTE: JAN 04, 2025@11:07:26 ENTRY DATE: JAN 04, 2025@11:07:27 AUTHOR: STUB,JAMISON K EXP COSIGNER: URGENCY: STATUS: COMPLETED Spoke with veterans spouse, Jagruti, who is listed as E-Contact in veterans chart. Per Jagruti, the efinaconazole Rx is no longer needed, she states the community provider told her she can instead have apply Betadine and cover with bandage to effected area. Alerting [facility] to details above. /daljit HERNANDEZ RN REGISTERED NURSE Signed: 01/04/2025 11:10 Receipt Acknowledged By: 01/04/2025 11:16 /katey/ ESTEBAN TORRES LPN Co-Cash Person --- Original Document --- 11/10/24 PHARMACY NON [place] CARE MEDICATIONS: [facility] RECEIVED electronic prescription(s) (eRX(s))from NON- VA Provider: EMMY JACKSON Date eRX received: NOV 10, 2024 The outside (NON-VA) provider is not authorized to write for prescription(s) through [place] pharmacy at this time. Prescription request REDIRECTED via FAX to [facility] department eRx Prescription Information: eRx Reference #: [id number] eRx Drug: efinaconazole 10 % topical solution with applicator eRX Written Date: NOV 09, 2024 Issue Date: Qty: 8 Days Supply: Refills: 11 eRx Sig: Apply solution daily for 48 weeks. /daljit CORDERO PharmD CLINICAL PHARMACIST Signed: 11/10/2024 10:19 11/10/2024 ADDENDUM STATUS: COMPLETED Faxed local clinic regarding a formulary issue. /katey/ ESTEBAN TORRES LPN Co-Cash Person Signed: 11/10/2024 13:35 01/03/2025 ADDENDUM STATUS: COMPLETED Co-managed care has attempted multiple times to get the local clinic to address the formulary issue regarding this prescription with no results. Alerting to the pact team for follow up. Rx and records scanned to [facility]. Please order if appropriate. [facility] will not proceed with further processing for this reason. /katey/ ESTEBAN TORRES LPN Co-Cash Person Signed: 01/03/2025 15:05 Receipt Acknowledged By: 01/04/2025 10:11 /daljit Mathews MD Physician 01/04/2025 11:07 /katey/ JAMISON HERNANDEZ RN REGISTERED NURSE JAMISON HERNANDEZ [facility] Jan 03, 2025 03:03 PM ADDENDUM: LOCAL TITLE: Addendum STANDARD TITLE: ADDENDUM DATE OF NOTE: JAN 03, 2025@15:03:35 ENTRY DATE: JAN 03, 2025@15:03:36 AUTHOR: ESTEBAN TORRES EXP COSIGNER: URGENCY: STATUS: COMPLETED Co-managed care has attempted multiple times to get the local clinic to address the formulary issue regarding this prescription with no results. Alerting to the pact team for follow up. Rx and records scanned to [facility]. Please order if appropriate. [facility] will not proceed with further processing for this reason. /katey/ ESTEBAN TORRES LPN Co-Cash Person Signed: 01/03/2025 15:05 Receipt Acknowledged By: 01/04/2025 10:11 /daljit Mathews MD Physician 01/04/2025 11:07 /katey/ JAMISON HERNANDEZ RN REGISTERED NURSE --- Original Document --- 11/10/24 PHARMACY NON PR CARE MEDICATIONS: [facility] RECEIVED electronic prescription(s) (eRX(s))from NON- VA Provider: EMMY JACKSON Date eRX received: NOV 10, 2024 The outside (NON-VA) provider is not authorized to write for prescription(s) through [place] pharmacy at this time. Prescription request REDIRECTED via FAX to [facility] department eRx Prescription Information: eRx Reference #: [id number] eRx Drug: efinaconazole 10 % topical solution with applicator eRX Written Date: NOV 09, 2024 Issue Date: Qty: 8 Days Supply: Refills: 11 eRx Sig: Apply solution daily for 48 weeks. /daljit CORDERO PharmD CLINICAL PHARMACIST Signed: 11/10/2024 10:19 11/10/2024 ADDENDUM STATUS: COMPLETED Faxed local clinic regarding a formulary issue. /daljit TORRES LPN Co-Cash Person Signed: 11/10/2024 13:35 01/04/2025 ADDENDUM STATUS: UNSIGNED You may not VIEW this UNSIGNED Addendum. ESTEBAN TORRES [facility] Nov 10, 2024 10:18 AM PHARMACY NOTE: LOCAL TITLE: PHARMACY NON PR CARE MEDICATIONS STANDARD TITLE: PHARMACY NOTE DATE OF NOTE: NOV 10, 2024@10:18 ENTRY DATE: NOV 10, 2024@10:18:21 AUTHOR: MIRACLE CORDERO EXP COSIGNER: URGENCY: STATUS: COMPLETED PHARMACY NON PR CARE MEDICATIONS Has ADDENDA [facility] RECEIVED electronic prescription(s) (eRX(s))from NON- VA Provider: EMMY JACKSON Date eRX received: NOV 10, 2024 The outside (NON-VA) provider is not authorized to write for prescription(s) through [place] pharmacy at this time. Prescription request REDIRECTED via FAX to [facility] department eRx Prescription Information: eRx Reference #: [id number] eRx Drug: efinaconazole 10 % topical solution with applicator eRX Written Date: NOV 09, 2024 Issue Date: Qty: 8 Days Supply: Refills: 11 eRx Sig: Apply solution daily for 48 weeks. /daljit CORDERO PharmD CLINICAL PHARMACIST Signed: 11/10/2024 10:19 11/10/2024 ADDENDUM STATUS: COMPLETED Faxed local clinic regarding a formulary issue. /daljit TORRES LPN Co-Cash Person Signed: 11/10/2024 13:35 01/03/2025 ADDENDUM STATUS: COMPLETED Co-managed care has attempted multiple times to get the local clinic to address the formulary issue regarding this prescription with no results. Alerting to the pact team for follow up. Rx and records scanned to [facility]. Please order if appropriate. [facility] will not proceed with further processing for this reason. /katey/ ESTEBAN TORRES LPN Co-Cash Person Signed: 01/03/2025 15:05 Receipt Acknowledged By: 01/04/2025 10:11 /katey/ Urvashi Mathews MD Physician 01/04/2025 11:07 /katey/ JAMISON HERNANDEZ RN REGISTERED NURSE 01/04/2025 ADDENDUM STATUS: COMPLETED Spoke with veterans spouse, Jagruti, who is listed as E-Contact in veterans chart. Per Jagruti, the efinaconazole Rx is no longer needed, she states the community provider told her she can instead have apply Betadine and cover with bandage to effected area. Alerting [facility] to details above. /katey/ JAMISON HERNANDEZ RN REGISTERED NURSE Signed: 01/04/2025 11:10 Receipt Acknowledged By: * AWAITING SIGNATURE * ESTEBAN TORRES [facility]
--- OUTSIDE RECORDS SUMMARY | 2025-01-02 05:48 | XMS_ITS | Encounter Summary ---
Author Name [facility] [facility] [place] [facility] [facility] [place] Address [address] [place] [address] Care Team Providers Care Regulatory Affairs Coordinator Name Role Phone RODRÍGUEZ MATHEWS Primary Care [...] Blanchard's Name Patient's Relationship to Policy Blanchard [facility] (WNR) MEDICARE ADVANTAGE [facility] (WNR) Jun 08, 2023 [id number] SHERYL SERRANO PATIENT MEDICARE (WNR) MEDICARE (M) RR PART A Feb 06, 2003 RR PART A [id number] [id number] ZACH SHERYL PATIENT MEDICARE (WNR) MEDICARE (M) RR PART B Feb 06, 2003 RR PART B [id number] SHERYL SERRANO PATIENT MEDICARE PART D (WNR) MEDICARE (M) PART D Jun 08, 2022 PART D [id number] SHERYL SERRANO PATIENT [employer] MEDIC[employer] SECONDARY (NO B EXC) UPREH S Jun 08, 2009 [id number] SHERYL SERRANO PATIENT Selected Encounter This section includes the information on record at [place] for the Encounter. Date/Time Encounter Type Encounter Description Reason Pro vider Source Jan 02, 2025 10:48 AM Outpatient Encounter ASSISTED HEMODIALYSIS IHE Encounter Template Text not used by [...] The data comes from all [place] [facility]. Appointment Date/Time Appointment Type Appointme nt Facility Name Jan 05, 2025 02:00 PM [place]ATORY [place]IC[place] [facility] Jan 26, 2025 01:00 PM [place] - [place]ONE [place] [facility] Feb 02, 2025 02:00 PM AMBUL[place]ORY - [place] [facility] Feb 10, 2025 07:00 AM [facility]ONE [place] [facility] Mar 08, 2025 07:00 AM [facility]ORY [place]ONE [place] [facility] Mar 08, 2025 07:30 AM [place]ORY - [place]ONE [place] [facility] Active, Pending, and Scheduled Orders This section includes a listing of several types of active, pending, and scheduled orders, including clinic medications orders, diagnostic test orders, procedure orders and consult orders; where the start date of the order is 45 days before the date of the Encounter or 45 days after the date of theEncounter. The data comes from all [facility]. Test Date/Time Test Type Test Details Facility Name Jan 03, 2025 08:58 AM Consult Order [facility]NEPHROLOGY DIALYSIS OVERSIGHT RENEWAL [facility] Jan 03, 2025 08:58 AM Consult Order [facility]DIALYSIS [facility] [place] Jan 17, 2025 01:16 PM Consult Order [facility] HEALTH AIDE [facility] Social History: Smoking Status (Most current) and [...] May 23, 2003 ADVANCE DIRECTIVE [facility] Encounter Notes: All associated encounter notes This section contains the clinical notes associated to the Encounter. Date/Time Encounter Note(s) Provider Source Jan 02, 2025 10:48 AM SOCIAL WORK NOTE: LOCAL TITLE: SOCIAL WORK PROGRESS NOTE STANDARD TITLE: SOCIAL WORK NOTE DATE OF NOTE: JAN 02, 2025@10:48 ENTRY DATE: JAN 02, 2025@10:48:37 AUTHOR: PAPI HINSON EXP COSIGNER: URGENCY: STATUS: COMPLETED PCSW-Community Dialysis In preparation for community dialysis authorization renewals, advertising copywriter confirmed/ obtained information from [facility]. This information was provided to Nephrology Dept who assisted in entering Community [facility] - Dialysis Renewal consult and Community Care - Nephrology Dialysis Oversight Renewal consult for to receive [place] paid community dialysis from 03/08/2025 AND through 03/07/2026. Assessment Nurse remains available. /katey/ EMETERIO GARNER, ASSISTANT CONSTRUCTION SUPERINTENDENT PRIMARY CARE [employer] HISTORY TEACHER Signed: 01/02/2025 10:48 PAPI HINSON [facility]
--- OUTSIDE RECORDS SUMMARY | 2025-01-05 09:00 | XMS_ITS | Encounter Summary ---
Author Name [facility] Organization [facility] [place] Address [address] [place] [address] Care Team Providers Care Director Of Fundraising Name Role Phone URVASHI MATHEWS Primary Care [...] Blanchard's Name Patient's Relationship to Policy Blanchard [facility] MCR (WNR) MEDICARE ADVANTAGE [facility] (WNR) Jun 08, 2023 [id number] SHERYL SERRANO PATIENT MEDICARE (WNR) MEDICARE (M) RR PART A Feb 06, 2003 RR PART A [id number] JANETTEVannesa SHERYL PATIENT MEDICARE (WNR) MEDICARE (M) RR PART B Feb 06, 2003 RR PART B [id number] [phone] SHERYL SERRANO PATIENT MEDICARE PART D (WNR) MEDICARE (M) PART D Jun 08, 2022 PART D [id number] SHERYL SERRANO PATIENT [employer] MEDICARE SECONDARY (NO B EXC) UPREH S Jun 08, 2009 [id number] SHERYL SERRANO PATIENT Selected Encounter This section includes the information on record at [place] for the Encounter. Date/Time Encounter Type Encounter Description Reason Provider Source Jan 05, 2025 02:00 PM OFFICE O/P EST HI 40 MIN PRIMARY CARE/MEDICINE ICD-10-CM I50.9 Heart failure, unspecified BISIURVASHI IHMarika Encounter Template Text not used by [place] Assessments - Encounter Diagnoses This section includes the primary and secondary diagnoses documented for the Encounter. Date/Time Primary/Secondary Diagnosis Diagnosis Name Provider Source Jan 05, 2025 02:41 PM PRIMARY Heart failure, unspecified YASMANY PORRAS Ceci [facility] Jan 05, 2025 02:41 PM SECONDARY Aths[place] heart disease of [place] coronary artery w/o ang pctrs [facility] Jan 05, 2025 02:41 PM SECONDARY Atrioventricular block, complete [facility] Jan 05, 2025 02:41 PM SECONDARY Chronic obstructive pulmonary disease, unspecified [facility] Jan 05, 2025 02:41 PM SECONDARY Disorder of arteries and arterioles, unspecified [facility] Jan 05, 2025 02:41 PM SECONDARY End stage renal disease [facility] Jan 05, 2025 02:41 PM SECONDARY Ischemic cardiomyopathy [facility] Jan 05, 2025 02:41 PM SECONDARY Presence of cardiac pacemaker [facility] Jan 05, 2025 02:41 PM SECONDARY Type 2 diabetes mellitus w diabetic chronic kidney disease [facility] Jan 05, 2025 02:41 PM SECONDARY Type 2 diabetes mellitus with diabetic neuropathy, unsp [facility] Jan 05, 2025 02:41 PM SECONDARY 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 This section includes future appointments and future orders which are active, pending or scheduled. Future Appointments This section includes appointments that were scheduled to occur 6 months from the date of the Encounter, up to a maximum of 20 appointments. The data comes from all [place] treatment [facility]. Appointment Date/Time Appointment Type Appointme nt Facility Name Jan 26, 2025 01:00 PM [facility] Feb 02, 2025 02:00 PM AMBULATORY - SURGERY [facility] Feb 10, 2025 07:00 AM AMBULATORY - NONE [facility] Mar 08, 2025 07:00 AM AMBULATORY - NONE [facility] Mar 08, 2025 07:30 AM AMBULATORY - NONE [facility] Active, Pending, and Scheduled Orders This section includes a listing of several types of active, pending, and scheduled orders, including clinic medications orders, diagnostic test orders, procedure orders and consult orders; where the start date of the order is 45 days before the date of the Encounter or 45 days after the date of theEncounter. The data comes from all [facility]. Test Date/Time Test Type Test Details Facility Name Jan 03, 2025 08:58 AM Consult Order COMMUNITY CARE-NEPHROLOGY DIALYSIS OVERSIGHT RENEWAL [facility] Jan 03, 2025 08:58 AM Consult Order COMMUNITY CARE-DIALYSIS RENEWAL [facility] Jan 17, 2025 01:16 PM Consult Order COMMUNITY CARE-GEC HOMEMAKER/HOME HEALTH AIDE [facility] Vital Signs: All taken on the encounter date This section contains inpatient and outpatient Vital Signs collected on the date of the Encounter. Date/Time Temperature Pulse Blood Pressure Respiratory Rate SP02 Pain Height Weight Body Mass Index Source Jan 05, 2025 02:40 PM 98 F 74 /min 103/63 mm[Hg] 16 /min 94 % 6 [facility] Social History: Smoking Status (Most [...] Date/Time Current Smoking Status Comment Billie ity Jan 05, 2025 02:00 PM VA-TOBACCO USE FORMER CIGARETTES [facility] Tobacco Use History This section includes a history of the smoking, or tobacco-related health factors, that were collected on or before the date of the Encounter. The data comes from the [facility] where the Encounter took place. Date/Time Smoking Status/Tobacco Use Comment F acility Jan 05, 2025 02:00 PM VA-TOBACCO USE FORMER CIGARETTES [facility] Dec 31, 2023 01:30 PM VA-TOBACCO FORMER USER [facility] Dec 31, 2023 01:30 PM VA-TOBACCO QUIT 15 YRS OR MORE [facility] Dec 18, 2022 01:00 PM VA-TOBACCO FORMER USER [facility] Dec 18, 2022 01:00 PM VA-TOBACCO QUIT 15 YRS OR MORE [facility] November 05, 2021 10:00 AM VA-TOBACCO FORMER USER [facility] November 05, 2021 10:00 AM VA-TOBACCO QUIT 15 YRS OR MORE [facility] Dec 10, 2018 12:57 PM VA-TOBACCO FORMER USER [facility] Dec 10, 2018 12:57 PM VA-TOBACCO QUIT 15 YRS OR MORE [facility] Feb 25, 2018 12:23 PM VA-TOBACCO FORMER USER [facility] Feb 25, 2018 12:23 PM VA-TOBACCO QUIT 15 YRS OR MORE [facility] Apr 10, 2015 02:55 PM FORMER TOBACCO USER 7Y OR GREATE R [facility] Apr 27, 2014 10:17 AM FORMER TOBACCO USER 7Y OR GREATE R [facility] Jun 18, 2006 07:23 AM FORMER TOBACCO USER 7Y OR GREATE R [facility] Advance Directives: All historical and current Section Date Range: From patient's date of to the date document was created. This section includes ALL of a patient's completed or amended [place] Advance and Rescinded Directives. The entries below indicate that a directive exists for the patient, but an actual copy is not included with this document. The data comes from all [facility]. Date Advance Directives Provider Source May 23, [address] [facility] Encounter Notes: All associated encounter notes This section contains the clinical notes associated to the Encounter. Date/Time Encounter Note(s) Provider Source Jan 05, 2025 02:41 PM INTERNAL MEDICINE OUTPATIENT NOTE: LOCAL TITLE: MEDICINE CLINIC NURSING NOTE STANDARD TITLE: INTERNAL MEDICINE OUTPATIENT NOTE DATE OF NOTE: JAN 05, 2025@14:41 ENTRY DATE: JAN 05, 2025@14:41:46 AUTHOR: GREG PORRAS COSIGNER: URGENCY: STATUS: COMPLETED TYPE OF VISIT: Appointment Check In Type of appointment: In-person appointment REASON FOR VISIT: reg chekc up ALLERGIES: SIMVASTATIN (October 13, 2003) DOXYCYCLINE (Apr 02, 2004) LISINOPRIL (Sep 17, 2006) ATORVASTATIN (Feb 22, 2009) HYDROCODONE (Dec 18, 2022) VITAL SIGNS: Blood Pressure: 103/63 (01/05/2025 14:40) Pulse: 74 (01/05/2025 14:40) Respiration: 16 (01/05/2025 14:40) Temperature: 98 F [36.7 C] (01/05/2025 14:40) Weight: 200.2 lb [90.81 kg] (12/31/2023 13:26) Height: 72 in [182.9 cm] (12/18/2022 13:09) BMI: 27.2 O2 Sat: 94% (01/05/2025 14:40) Pain: 6 (01/05/2025 14:40) MEDICATION Over the Counter/Herbal Medications: The patient states that they take some outside medications and/or herbals. Suicide Screen: C-SSRS Screening Viola-Suicide Severity Rating Scale (C-SSRS Screener) 1. Over [...] required due to responses to other questions. Tobacco Use Screening: The patient is a former cigarette smoker. The patient has never used other types of tobacco. Depression Screening: Perform PHQ-2 A PHQ-2 screen [...] one occasion in the past year? Never Nursing Annual Screening: Fall History Screen During the past 12 months, have you had any falls? Patient does not report any falls in the past 12 months. MEDICATIONS: Patient is on one of the following medication classes: Antihypertensives, Antidepressants, Antipsychotics, Diuretics, or Controlled substance medication used for pain. Script Talk Screen Are you able to read your prescription bottles with your glasses, magnifiers or other aids? Yes or patient not taking any prescriptions. Skin Screen Patient reports any current pressure ulcers, a history of pressure ulcers, or a wound from a medical editor or Patient is bed-confined or a wheelchair-user or Patient requires assistance to transfer/change position No, Skin Screen is Negative Home Abuse/Violence Screen Is your home free of abuse and violence? Yes Outpatient Nutrition Screen Body Mass Index (BMI)= 27.2 Blanca: Collection DT Specimen Test Name Result Units Ref Range 03/15/2020 11:02 BLOOD HEMOGLOBIN A1C 6.0 % 4.0 - 6.0 [facility] Hgb A1C: No data available [place] Hgb A1C: No data available Point of [...] Parenteral Nutrition (TPN) or Tube Feedings? No Client Assistive Service (EDEL) Screen Does the patient require assistance with outpatient visit? No Homelessness/Food Insecurity Screen: In the past 2 [...] Not worried about housing near future The [place] reports the following: Within the past 12 months, you worried whether your food would run out before you got money to buy more. Never true Within the past 12 months, the food you bought just didn't last and you didn't have money to get more. Never true Food Assistance Programs [facility] Food Assistance Programs [facility] COVID-19 Immunization: Refused Pfizer Monovalent COVID-19 vaccine Immunization: COVID-19 (PFIZER), MRNA, LNP-S, PF, ALY-SUCROSE, 30 MCG/0.3 ML (AGES 12+ YEARS) Refusal Reason: PATIENT DECISION Patient refuses all immunization(s) in the COVID-19 group Date Documented: 01/05/25 14:45 RSV Immunization: Respiratory Syncytial Virus (RSV) Vaccine: Refused Pfizer (Abrysvo, RSVpreF vaccine). Immunization: RSV, BIVALENT, PROTEIN SUBUNIT RSVPREF, DILUENT RECONSTITUTED, 0.5 ML, PF Refusal Reason: PATIENT DECISION Patient refuses all immunization(s) in the RSV group Date Documented: 01/05/25 14:45 /katey/ GREG PORRAS LPN LICENSED PRACTICAL NURSE Signed: 01/05/2025 14:45 GREG PORRAS [facility] Jan 05, 2025 12:13 PM INTERNAL MEDICINE NOTE: LOCAL TITLE: MEDICINE CLINIC NOTE STANDARD TITLE: INTERNAL MEDICINE NOTE DATE OF NOTE: JAN 05, 2025@12:13 ENTRY DATE: DEC 30, 2024@10:57:41 AUTHOR: URVASHI MATHEWS COSIGNER: URGENCY: STATUS: COMPLETED SUBJECT: CLINIC VISIT GENERAL INTERNAL MEDICINE CLINIC PROGRESS NOTE SHERYL SERRANO is a 84 year old MALE with the following CHIEF COMPLAINT: chronic disease management THIS AN ESTABLISHED PATIENT IN THE PRIMARY CARE CLINIC HPI: Sheryl has a highly complex medical history (see problem list) notable for: 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 Dylan Xiong Regenerator Operator: Dr. Darren Youssef, Elizabeth Hicks COUNTER DISH CARRIER [facility] Unit: [facility]: [facility], Dr. Prater [facility]: [facility] in [facility] Heart [place]: Sneha May [place] Device checks [place] [facility]: TAMIKO Jarquin, Dr. Boubacar Jesus Wound care: [facility] Mg Aguero NP Other: Urology: [facility] Surgery group, Dr. Mack, [facility] in [facility] for patient to get jail visits for bladder irrigation Today, we reviewed 's interim chart notes (as summarized below), medications and any need for refills, test results, routine health care maintenance and any other acute and chronic health conditions. Additional concerns today: Extended time spent today reviewing [facility] records, reviewing interim health problems, reviewing meds and updating medical problem list and medication list in CPRS. All cares are managed outside the [facility] as noted above. No acute concerns The following preventive care screening and other chronic disease management records were reviewed: Immunizations: offered any immunizations that are due, see rooming staff note See nursing note regarding the following screening: [...] colonoscopy and polypectomy 12/10, [facility]oma at [facility] 8. Diabetes mellitus 9. Cataract, Senile, Unsp 10. Coronary arteriosclerosis - Coronary artery bypass x 4, left JIMMIE to LAD, SV to OM1, SV to OM2, SV to diagonals 07/09/2006 11. Shared care - sustainability consultant and GP - PCP: [facility] Dylan Xiong, [id number] [phone] - Regenerator Operator: Dr James Pérez [phone] - [place], [place] 12. Diabetic renal disease - 10/2018: started hemodialysis @ [facility] in [place] 13. Ganglion of wrist 14. Obstructive Sleep Apnea of Adult ([facility] [id number]) - APAP: 10-20, Ramp: 5x10 min, [place] 15. Hyperparathyroidism due to renal insufficiency 16. Chronic cough 17. Oropharyngeal dysphagia - 2013 BILINGUAL EXECUTIVE ASSISTANT eval in chart 18. Hemorrhoid 19. Exposure to potentially hazardous substance - Asbestos 20. Chronic obstructive lung disease 21. Gastroesophageal reflux disease without esophagitis 22. Chronic rhinitis 23. End-stage renal disease 24. Incontinence of feces 25. Peripheral arterial occlusive disease - left leg angioplasty 06/03/2024 [facility] - 10/18/2024 left leg ultrasound: 50-74% stenosis in the distal common femoral artery and mid/distal superficial femoral artery , Occluded right DPA ([facility]) 26. Dementia 27. Anemia in chronic kidney disease 28. Cardiac pacemaker in situ - biventricular 29. Atrial fibrillation 30. Congestive heart failure 31. Ischemic congestive cardiomyopathy 32. Osteomyelitis - toe left foot 33. Skin ulcer - bilateral thigh, left calf 34. Psoriasis 35. Obstruction of urinary bladder outlet 36. Protein-calorie malnutrition 37. Carotid artery disease - bilateral 38. Recurrent urinary tract infection 39. Complete atrioventricular block 40. Chronic constipation 41. History of asbestos exposure 42. History of amputation of hallux - left great toe partial amputation 09/08/2024 ([facility]) 43. History of osteomyelitis - left foot proximal hallus SURGICAL HISTORY: - Coronary artery bypass x 4, left JIMMIE to LAD, SV to OM1, SV to OM2, SV to diagonals 07/09/2006 FAMILY HISTORY: Reviewed. SOCIAL HISTORY: Relationship/living situation: lives w/ [place] in [facility] health care in [facility] for patient to get jail visits for bladder irrigation Substance use hx: Tobacco, smoking: former smoker, quit decades ago Alcohol: 1-2 drinks, monthly or less MEDICATIONS: Active Outpatient Medications (including Supplies): Outpatient Medications Status 1) AZELASTINE 137MCG/SPRAY 200D NASAL INHL SPRAY 1 PUFF IN EACH ACTIVE NOSTRIL TWICE A DAY FOR NASAL SYMPTOMS Indication: FOR NASAL SYMPTOMS 2) BRIEF,TRANQUILITY HIPOLITO OVERNITE MED#2115 USE BRIEF ACTIVE DIRECTED FOR INCONTINENCE Indication: FOR INCONTINENCE 3) CLOPIDOGREL BISULFATE 75MG TAB TAKE ONE TABLET BY MOUTH ACTIVE EVERY DAY TO PREVENT BLOOD CLOTS LENGTH OF TREATMENT: INDEFINITE, CO-MANAGED CARE PRESCRIPTION Indication: TO PREVENT BLOOD CLOTS 4) CYCLOSPORINE 0.05% (PF) OPH EMUL 0.4ML INSTILL 1 DROP BOTH ACTIVE EYES TWICE A DAY 5) DM 10/GUAIFENESN 100MG/5ML (AF & SF) LIQ TAKE 1 TEASPOONFUL ACTIVE BY MOUTH EVERY 4 HOURS NEEDED FOR COUGH AND CONGESTION Indication: FOR COUGH AND CONGESTION 6) INSULIN,ASPART(EQV-NOVLG)100UN/ ML FLXPEN INJECT 5 UNITS ACTIVE UNDER THE SKIN BEFORE MEALS FOR DIABETES Indication: FOR DIABETES 7) MIDODRINE HCL 10MG TAB TAKE ONE TABLET BY MOUTH DIRECTED ACTIVE - TAKE 1 TABLET BEFORE DIALYSIS AND 1 TABLET AFTER DIALYSIS, NEEDED FOR HYPOTENSION OTHER DAYS 8) MONTELUKAST NA 10MG TAB TAKE ONE TABLET BY MOUTH EVERY DAY ACTIVE 9) PANTOPRAZOLE NA 40MG EC TAB TAKE ONE TABLET BY MOUTH EVERY ACTIVE DAY ONE-HALF HOUR BEFORE EATING. 10) PRAVASTATIN NA 40MG TAB TAKE ONE TABLET BY MOUTH AT BEDTIME ACTIVE FOR CHOLESTEROL Indication: FOR CHOLESTEROL Non-VA Medications Status 1) Non-VA ACETAMINOPHEN 650MG SA TAB 650MG MOUTH EVERY 8 HOURS ACTIVE NEEDED Indication: FOR PAIN 2) Non-VA ALBUTEROL 90MCG (CFC-F) 200D ORAL INHL 2 PUFFS MOUTH ACTIVE FOUR TIMES A DAY NEEDED Indication: FOR SHORTNESS OF BREATH 3) Non-VA ASPIRIN 325MG EC TAB 325MG MOUTH EVERY DAY ACTIVE Indication: FOR HEART DISEASE 4) Non-VA CALCIUM CARBONATE TAB,CHEWABLE ONE TABLET MOUTH FOUR ACTIVE TIMES A DAY NEEDED Indication: FOR STOMACH ACID 5) Non-VA CARBOXYMETHYLCELLULOSE 1% OPH GEL 0.4ML 1 DROP BOTH ACTIVE EYES TWICE A DAY Indication: FOR DRY EYES 6) Non-VA CHOLECALCIF 50MCG (D3-2,000UNIT) TAB 50MCG MOUTH ACTIVE EVERY DAY Indication: FOR VITAMIN D SUPPLEMENT 7) Non-VA COENZYME Q10 CAP/TAB 1 TABLET COENZYME Q10 100MG ACTIVE MOUTH EVERY DAY 8) Non-VA DICLOFENAC NA 1% TOP GEL 2 GRAMS TOPICALLY FOUR TIMES ACTIVE A DAY NEEDED Indication: TO AFFECTED AREA FOR PAIN 9) Non-VA DOCUSATE NA 50MG/SENNOSIDES 8.6MG TAB 2 TABLETS MOUTH ACTIVE TWICE A DAY NEEDED Indication: FOR CONSTIPATION 10) Non-VA FISH OIL 1000MG (500MG DHA/EPA) CAP 1200MG MOUTH ACTIVE EVERY DAY 11) Non-VA FLUTICAS 250/SALMETEROL 50 INHL DISK 60 1 PUFF ACTIVE INHALATION TWICE A DAY Indication: UNKNOWN 12) Non-VA FLUTICASONE PROP 50MCG 120D NASAL INHL 1 SPRAY EACH ACTIVE NOSTRIL EVERY DAY Indication: FOR NASAL SYMPTOMS 13) Non-VA HYDROCORTISONE 1% LOTION,TOP SMALL AMOUNT TOPICALLY ACTIVE EVERY DAY NEEDED Indication: SCALP ITCHING 14) Non-VA HYDROCORTISONE 2.5% CREAM THIN LAYER TOPICALLY TWICE ACTIVE A DAY NEEDED Indication: UNKNOWN 15) Non-VA IPRATROPIUM BROMIDE 17MCG 200D ORAL INHL 2 PUFFS ACTIVE INHALATION EVERY DAY Indication: UNKNOWN 16) Non-VA LEVOTHYROXINE NA 200MCG TAB 200MCG MOUTH EVERY DAY ACTIVE Indication: FOR THYROID 17) Non-VA LIDOCAINE 4% TOP CREAM SMALL AMOUNT TOPICALLY FOUR ACTIVE TIMES A DAY NEEDED Indication: FOR PAIN 18) Non-VA LORATADINE 10MG TAB 10MG MOUTH EVERY DAY NEEDED ACTIVE Indication: FOR ALLERGIES 19) Non-VA MIRTAZAPINE TAB 7.5 MG MOUTH AT BEDTIME ACTIVE Indication: UNKNOWN 20) Non-VA NITROGLYCERIN 0.4MG SL TAB 0.4MG UNDER THE TONGUE ACTIVE NEEDED 21) Non-VA POLYETHYLENE GLYCOL 3350 ORAL PWDR 17 GRAMS MOUTH ACTIVE EVERY DAY NEEDED Indication: FOR CONSTIPATION 22) Non-VA VANICREAM CREAM TOPICALLY ACTIVE Indication: FOR DRY SKIN 23) Non-VA VITAMIN B COMPLEX CAP 1 CAPSULE MOUTH EVERY DAY ACTIVE Indication: FOR SUPPLEMENT 24) Non-VA VITAMIN E 180MG (400UNIT) CAP 400UNIT MOUTH EVERY DAY ACTIVE 25) Non-VA ZINC SULFATE TAB 50MG MOUTH EVERY DAY ACTIVE 35 Total Medications ALLERGIES: SIMVASTATIN (October 13, 2003) DOXYCYCLINE (Apr 02, 2004) LISINOPRIL (Sep 17, 2006) ATORVASTATIN (Feb 22, 2009) EXAM: PREVIOUS VITAL SIGNS: Blood Pressure: 103/55 (12/31/2023 13:26) Weight: WEIGHTS IN LAST 6 MONTHS - NONE FOUND GEN: Alert, no acute distress, Very hard of hearing even with hearing aids in place Riding in motorized scooter EENT: Pupils equal, round, reactive to light. No icterus. Lungs: Clear to auscultation throughout Cardiac: Regular rate and rhythm today, no audible murmurs, rubs or gallops, JVP normal/notelevated Abdomen: Normal bowel sounds, soft, non tender, no palpable hepatosplenomegaly or masses, Skin: wound distal right pointer finger w/o purulent drainage. Followed by wound care. No jaundice, rashes or suspicious lesions on exposed surfaces Psych: actively engaged in conversation, full range of affect, no psychomotor slowing, no signs of agitation TEST RESULTS: 12/12/2024: Sodium 128 (L) 136 - 145 mEq/L [facility] Potassium 4.7 3.5 - 5.1 mEq/L [facility] Chloride 91 (L) 96 - 108 mEq/L [facility] Bicarbonate (CO2) 21 20 - 31 mEq/L [facility] Calcium 9.7 8.7 - 10.4 mg/dL [facility] Phosphorus 3.5 2.6 - 4.5 mg/dL [facility] Calcium Phosphorus Product 34 0 - 54 [facility] Iron 35 (L) 45 - 160 mcg/dL [facility] UIBC 171 155 - 355 mcg/dL [facility] TIBC 206 185 - 515 mcg/dL [facility] Iron Saturation (TSat) 17 (L) 20 - 55 % [facility] Hemoglobin 10.2 (L) 14.0 - 18.0 g/dL [facility] Hepatitis C Antibody Nonreactive Nonreactive 09/30/2024: HIV 1 AB NEGATIVE NEGATIVE [facility] HIV 2 AB NEGATIVE NEGATIVE [facility] Patient was informed of available lab, imaging, and other study results associated with today's visit. 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 REMINDERS: Medication Reconciliation: Education Evaluations *Was medication education provided for NEW medications or CHANGES to medications? (including medication name, dose, route, reason for use, and potential side effects). No new medications or medication changes during this encounter. Additional information: I just did med rec for non VA meds TERATOGENIC MED & CONTRACEPTION REVIEW (Optional)... MEDICATION RECONCILIATION List Given: An updated medication list was provided to the patient/caregiver. Review Done: The medication list shown below was verified for accuracy and reviewed with the patient/caregiver. It includes all pending medications/active medications/all medications or discontinued within the last 90 days/all remote medications and non-VA medications. If a given category (i.e. remote meds) is not shown, that means that a patient doesn't have a medication(s) in that category. Allergies listed below were also reviewed/updated for accuracy. Allergies/ADR from [facility] may not display in CPRS. Use [facility] MRT5 - Allergies/ADRs FACILITY ALLERGY/ADR -------- [facility] ATORVASTATIN [facility] METOCLOPRAMIDE [facility] OMEPRAZOLE [facility] ATORVASTATIN [facility] DOXYCYCLINE [facility] HYDROCODONE [facility] LISINOPRIL [facility] SIMVASTATIN Active and Recently Outpatient Medications (including Supplies): Issue Date Status Last Fill Active Outpatient Medications Refills Expiration 1) CLOPIDOGREL BISULFATE 75MG TAB Qty: 90 for ACTIVE Issue: 06/15/24 90 days Sig: TAKE ONE TABLET BY MOUTH EVERY Refills: 1 Last : 12/13/24 DAY TO PREVENT BLOOD CLOTS LENGTH OF Expr : 06/16/25 TREATMENT: INDEFINITE, CO-MANAGED CARE PRESCRIPTION Indication: TO PREVENT BLOOD CLOTS 2) CYCLOSPORINE 0.05% (PF) OPH EMUL 0.4ML Qty: ACTIVE Issue: 10/04/24 60 for 30 days Sig: INSTILL 1 DROP BOTH EYES Refills: 11 Last : 10/04/24 TWICE A DAY Expr : 10/05/25 3) DM 10/GUAIFENESN 100MG/5ML (AF & SF) LIQ ACTIVE Issue: 06/30/24 Qty: 120 for 30 days Sig: TAKE 1 TEASPOONFUL Refills: 1 Last : 12/19/24 BY MOUTH EVERY 4 HOURS NEEDED FOR COUGH Expr : 07/01/25 AND CONGESTION Indication: FOR COUGH AND CONGESTION 4) INSULIN,ASPART(EQV-NOVLG)100UN/ ML FLXPEN ACTIVE Issue: 12/20/24 Qty: 5 for 90 days Sig: INJECT 5 UNITS UNDER Refills: 2 Last : 12/20/24 THE SKIN BEFORE MEALS FOR DIABETES Expr : 12/21/25 Indication: FOR DIABETES 5) MIDODRINE HCL 10MG TAB Qty: 90 for 90 days ACTIVE Issue: 06/20/24 Sig: TAKE ONE TABLET BY MOUTH DIRECTED - Refills: 3 Last : 06/20/24 TAKE 1 TABLET BEFORE DIALYSIS AND 1 TABLET Expr : 06/21/25 AFTER DIALYSIS, NEEDED FOR HYPOTENSION OTHER DAYS 6) MONTELUKAST NA 10MG TAB Qty: 90 for 90 days ACTIVE Issue: 06/20/24 Sig: TAKE ONE TABLET BY MOUTH EVERY DAY Refills: 1 Last : 12/19/24 Expr : 06/21/25 7) PANTOPRAZOLE NA 40MG EC TAB Qty: 90 for 90 ACTIVE Issue: 06/20/24 days Sig: TAKE ONE TABLET BY MOUTH EVERY DAY Refills: 1 Last : 12/19/24 ONE-HALF HOUR BEFORE EATING. Expr : 06/21/25 8) PRAVASTATIN NA 40MG TAB Qty: 90 for 90 days ACTIVE Issue: 11/01/24 Sig: TAKE ONE TABLET BY MOUTH AT BEDTIME FOR Refills: 3 Last : 11/02/24 CHOLESTEROL Expr : 11/02/25 Indication: FOR CHOLESTEROL Issue Date Status Last Fill Inactive Outpatient Medications Refills Expiration 1) ALBUTEROL 90MCG (CFC-F) 200D ORAL INHL Qty: Issue: 11/09/23 2 for 50 days Sig: INHALE 2 PUFFS BY Refills: 2 Last : 11/01/24 INHALATION EVERY 4 HOURS NEEDED FOR Expr : 11/09/24 BREATHING SHAKE WELL (FOR IMMEDIATE RELIEF). 2) AZELASTINE 137MCG/SPRAY 200D NASAL INHL Qty: Issue: 12/31/23 2 for 90 days Sig: SPRAY 1 PUFF IN EACH Refills: 1 Last : 11/01/24 NOSTRIL TWICE A DAY FOR NASAL SYMPTOMS Expr : 12/31/24 Indication: FOR NASAL SYMPTOMS 3) BRIEF,TRANQUILITY HIP[facility]#[id number] Issue: 12/31/23 Qty: 72 for 30 days Sig: USE BRIEF Refills: 10 Last : 03/31/24 DIRECTED FOR INCONTINENCE Expr : 12/31/24 Indication: FOR INCONTINENCE 4) FLUTICAS 250/SALMETEROL 50 INHL DISK 60 Qty: Issue: 12/28/23 3 for 90 days Sig: INHALE 1 PUFF BY Refills: 0 Last : 11/29/24 INHALATION TWICE A DAY TO PREVENT TROUBLE Expr : 12/28/24 BREATHING -RINSE MOUTH AFTER USING 5) INSULIN,ASPART(EQV-NOVLG)100UN/ ML FLXPEN DISCONTINUED Issue: 10/26/23 Qty: 5 for 90 days Sig: INJECT 5 UNITS UNDER Refills: 1 Last : 03/14/24 THE SKIN BEFORE MEALS FOR DIABETES Expr : 10/26/24 Indication: FOR DIABETES 6) LEVOTHYROXINE NA (SYNTHROID) 200MCG TAB Qty: Issue: 12/28/23 90 for 90 days Sig: TAKE ONE TABLET BY MOUTH Refills: 0 Last : 09/24/24 EVERY DAY FOR THYROID Expr : 12/28/24 Indication: FOR THYROID 7) TIOTROPIUM 2.5MCG/ACTUAT 60D ORAL INHL Qty: DISCONTINUED Issue: 03/31/24 1 for 30 days Sig: INHALE TWO PUFFS BY Refills: 3 Last : 04/04/24 INHALATION EVERY DAY FOR ASTHMA Expr : 04/01/25 Indication: FOR ASTHMA 8) VANICREAM TOP CREAM Qty: 1362 for 90 days Issue: 12/28/23 Sig: APPLY THIN LAYER TOPICALLY EVERY DAY Refills: 0 Last : 12/19/24 FOR DRY SKIN Expr : 12/28/24 Indication: FOR DRY SKIN Start Date Active Non-VA Medications Status Stop Date 1) Non-VA ACETAMINOPHEN 650MG SA TAB SiMG ACTIVE MOUTH EVERY 8 HOURS NEEDED Indication: FOR PAIN 2) Non-VA ALBUTEROL 90MCG (CFC-F) 200D ORAL ACTIVE INHL Si PUFFS MOUTH FOUR TIMES A DAY NEEDED Indication: FOR SHORTNESS OF BREATH 3) Non-VA ASPIRIN 325MG EC TAB SiMG MOUTH ACTIVE EVERY DAY Indication: FOR HEART DISEASE 4) Non-VA CALCIUM CARBONATE TAB,CHEWABLE Sig: ACTIVE ONE TABLET MOUTH FOUR TIMES A DAY NEEDED Indication: FOR STOMACH ACID 5) Non-VA CARBOXYMETHYLCELLULOSE 1% OPH GEL ACTIVE 0.4ML Si DROP BOTH EYES TWICE A DAY Indication: FOR DRY EYES 6) Non-VA CHOLECALCIF 50MCG (D3-2,000UNIT) TAB ACTIVE SiMCG MOUTH EVERY DAY Indication: FOR VITAMIN D SUPPLEMENT 7) Non-VA COENZYME Q10 CAP/TAB Si TABLET ACTIVE COENZYME Q10 100MG MOUTH EVERY DAY 8) Non-VA DICLOFENAC NA 1% TOP GEL Si GRAMS ACTIVE TOPICALLY FOUR TIMES A DAY NEEDED Indication: TO AFFECTED AREA FOR PAIN 9) Non-VA DOCUSATE NA 50MG/SENNOSIDES 8.6MG TAB ACTIVE Si TABLETS MOUTH TWICE A DAY NEEDED Indication: FOR CONSTIPATION 10) Non-VA FISH OIL 1000MG (500MG DHA/EPA) CAP ACTIVE SiMG MOUTH EVERY DAY 11) Non-VA FLUTICAS 250/SALMETEROL 50 INHL DISK ACTIVE 60 Si PUFF INHALATION TWICE A DAY Indication: UNKNOWN 12) Non-VA FLUTICASONE PROP 50MCG 120D NASAL ACTIVE INHL Si SPRAY EACH NOSTRIL EVERY DAY Indication: FOR NASAL SYMPTOMS 13) Non-VA HYDROCORTISONE 1% LOTION,TOP Sig: ACTIVE SMALL AMOUNT TOPICALLY EVERY DAY NEEDED Indication: SCALP ITCHING 14) Non-VA HYDROCORTISONE 2.5% CREAM Sig: THIN ACTIVE LAYER TOPICALLY TWICE A DAY NEEDED Indication: UNKNOWN 15) Non-VA IPRATROPIUM BROMIDE 17MCG 200D ORAL ACTIVE INHL Si PUFFS INHALATION EVERY DAY Indication: UNKNOWN 16) Non-VA LEVOTHYROXINE NA 200MCG TAB Sig: ACTIVE 200MCG MOUTH EVERY DAY Indication: FOR THYROID 17) Non-VA LIDOCAINE 4% TOP CREAM Sig: SMALL ACTIVE AMOUNT TOPICALLY FOUR TIMES A DAY NEEDED Indication: FOR PAIN 18) Non-VA LORATADINE 10MG TAB SiMG MOUTH ACTIVE EVERY DAY NEEDED Indication: FOR ALLERGIES 19) Non-VA MIRTAZAPINE TAB Si.5 MG MOUTH AT ACTIVE BEDTIME Indication: UNKNOWN 20) Non-VA NITROGLYCERIN 0.4MG SL TAB Si.4MG ACTIVE UNDER THE TONGUE NEEDED 21) Non-VA POLYETHYLENE GLYCOL 3350 ORAL PWDR ACTIVE Si GRAMS MOUTH EVERY DAY NEEDED Indication: FOR CONSTIPATION 22) Non-VA VANICREAM CREAM Sig: TOPICALLY ACTIVE Indication: FOR DRY SKIN 23) Non-VA VITAMIN B COMPLEX CAP Si CAPSULE ACTIVE MOUTH EVERY DAY Indication: FOR SUPPLEMENT 24) Non-VA VITAMIN E 180MG (400UNIT) CAP Sig: ACTIVE 400UNIT MOUTH EVERY DAY 25) Non-VA ZINC SULFATE TAB SiMG MOUTH ACTIVE EVERY DAY 41 Total Medications PAVE Foot Check: Patient indicates foot exam (including monofilament test for sensation) was performed in the past year in the private sector: Date: October 06, 2024 Result: Abnormal Time spent today, including: Reviewing interim [facility] VA- and non-[facility] VA chart notes and test results, Independently obtaining history, Performing a medically appropriate exam and/or evaluation, Documenting clinical information in the progress note, Updating the CPRS problem list, Renewing medications, Entering any non-VA medications in CPRS Independently interpreting results, Communicating results (verbally, in results letter), Counseling and educating patient/surrogate, Coordinating care with other health team members, Entering/signing orders, Completing reminders, Composing after visit summary verbally and in writing Coding the encounter. Total Time: one hour Urvashi Mathews MD General [facility] PA[facility] LAYNE Cameron /katey/ Urvashi Mathews MD Physician Signed: 01/05/2025 14:43 URVASHI MATHEWS [facility]
--- OUTSIDE RECORDS SUMMARY | 2025-01-05 09:00 | XMS_ITS | Encounter Summary ---
Author Name [facility] [place] Address [address] [place] [address] Care Team Providers Care Order Packer Or Packager Name Role Phone BISIURVASHI Primary Care Provider [...] [facility] ([facility] MEDICARE ADVANTAGE [facility] (WNR) Jun 08, 2023 [id number] JANETTEVannesa SHERYL PATIENT MEDICARE (WNR) MEDICARE (M) RR PART A Feb 06, 2003 RR PART A [id number] GranadoARD PATIENT MEDICARE (WNR) MEDICARE (M) RR PART B Feb 06, 2003 RR PART B [id number] ZACHRUDDYSHERYL PATIENT MEDICARE PART D (WNR) MEDICARE (M) PART D Jun 08, 2022 PART D [id number] SHERYL SERRANO PATIENT [employer] MEDICARE SECONDARY (NO B EXC) UPREH S Jun 08, 2009 [id number] SHERYL SERRANO PATIENT Selected Encounter This section includes the information on record at [place] for the Encounter. Date/Time Encounter Type Encounter Description Reason Pro vider Source Jan 05, 2025 02:00 PM Outpatient Encounter PRIMARY CARE/MEDICINE IHE Encounter Template Text not used by [place] [...] The data comes from all [place] treatment [facility]. Appointment Date/Time Appointment Type Appointme nt Facility Name Jan 26, 2025 01:00 PM [facility] Feb 02, 2025 02:00 PM [facility] Feb 10, 2025 07:00 AM [facility] Mar 08, 2025 07:00 AM [facility] Mar 08, 2025 07:30 AM AMBULATORY - NONE [facility] Active, Pending, and Scheduled Orders This section includes a listing of several types of active, pending, and scheduled orders, including clinic medications orders, diagnostic test orders, procedure orders and consult orders; where the start date of the order is 45 days before the date of the Encounter or 45 days after the date of theEncounter. The data comes from all [facility]. Test Date/Time Test Type Test Details Facility Name Jan 03, 2025 08:58 AM Consult Order COMMUNITY CARE-NEPHROLOGY DIALYSIS OVERSIGHT RENEWAL Cons Chief Power Dispatcher[facility] Jan 03, 2025 08:58 AM Consult Order COMMUNITY CARE-DIALYSIS RENEWAL Cons [employer] Power Dispatcher[facility] Jan 17, 2025 01:16 PM Consult Order [facility] [place]/HOME HEALTH AIDE Cons Chief Power Dispatchers [facility] Vital Signs: All taken on the encounter date This section contains inpatient and outpatient Vital Signs collected on the date of the Encounter. Date/Time Temperature Pulse Blood Pressure Respiratory Rate SP02 Pain Height Weight Body Mass Index Source Jan 05, 2025 02:40 PM 98 F 74 /min 103/63 mm[Hg] 16 /min 94 % 6 [facility] Social History: Smoking Status (Most current) [...] Date/Time Current Smoking Status Comment Facil ity Jan 05, 2025 02:00 PM VA-TOBACCO USE FORMER CIGARETTES [facility] Tobacco Use History This section includes a history of the smoking, or tobacco-related health factors, that were collected on or before the date of the Encounter. The data comes from the [place] facility where the Encounter took place. Date/Time Smoking Status/Tobacco Use Comment F acility Jan 05, 2025 02:00 PM VA-TOBACCO USE FORMER CIGARETTES [facility] Dec 31, 2023 01:30 PM VA-TOBACCO FORMER USER [facility] Dec 31, 2023 01:30 PM VA-TOBACCO QUIT 15 YRS OR MORE [facility] Dec 18, 2022 01:00 PM VA-TOBACCO FORMER USER [facility] Dec 18, 2022 01:00 PM VA-TOBACCO QUIT 15 YRS OR MORE [facility] November 05, 2021 10:00 AM VA-TOBACCO FORMER USER [facility] November 05, 2021 10:00 AM VA-TOBACCO QUIT 15 YRS OR MORE [facility] Dec 10, 2018 12:57 PM VA-TOBACCO FORMER USER [facility] Dec 10, 2018 12:57 PM VA-TOBACCO QUIT 15 YRS OR MORE [facility] Feb 25, 2018 12:23 PM VA-TOBACCO FORMER USER [facility] Feb 25, 2018 12:23 PM VA-TOBACCO QUIT 15 YRS OR MORE [facility] Apr 10, 2015 02:55 PM FORMER TOBACCO USER 7Y OR GREATE R [facility] Apr 27, 2014 10:17 AM FORMER TOBACCO USER 7Y OR GREATE R [facility] Jun 18, 2006 07:23 AM FORMER TOBACCO USER 7Y OR GREATE R [facility] Advance Directives: All historical and current Section Date Range: From patient's date of to the date document was created. This section includes ALL of a patient's completed or amended [place] Advance and Rescinded Directives. The entries below indicate that a directive exists for the patient, but an actual copy is not included with this document. The data comes from all [facility]. Date Advance Directives Provider Source May 23, 2003 ADVANCE DIRECTIVE [facility] ANDREW BRANDONHAIDER [facility] Encounter Notes: All associated encounter notes This section contains the clinical notes associated to the Encounter. Date/Time Encounter Note(s) Provider Source Jan 05, 2025 02:43 PM ADMINISTRATIVE NOT E: LOCAL TITLE: AFTER VISIT SUMMARY NOTE STANDARD TITLE: ADMINISTRATIVE NOTE DICT DATE: JAN 05, 2025@14:00 ENTRY DATE: JAN 05, 2025@14:43:06 DICTATED BY: URVASHI MATHEWS EXP COSIGNER: URGENCY: STATUS: COMPLETED The patient was provided with a copy of an after-visit summary at the conclusion of the visit. A copy of the after-visit summary provided to the patient is available in [employer]. SCANNED DOCUMENT SIGNATURE NOT REQUIRED Electronically Filed: 01/05/2025 by: Urvashi Mathews MD Physician URVASHI MATHEWS [facility]
--- OUTSIDE RECORDS SUMMARY | 2025-01-16 04:20 | XMS_ITS | Encounter Summary ---
Author Name [facility] [place] Address [address] [place] [address] Care Team Providers Care Rockboard Lather Name Role Phone BISIURVASHI RAMOS Primary Care Provider Unavailabl e Insurance Providers: [...] Name Patient's Relationship to Policy [facility] (WNR) MEDICARE ADVANTAGE [facility] (WNR) Jun 08, 2023 [id number] SHERYL SERRANO PATIENT MEDICARE (WNR) MEDICARE (M) RR PART A Feb 06, 2003 RR PART A [id number] JANETTEVannesa SHERYL PATIENT MEDICARE (WNR) MEDICARE (M) RR PART B Feb 06, 2003 RR PART B [id number] SHERYL SERRANO PATIENT MEDICARE PART D (WNR) MEDICARE (M) PART D Jun 08, 2022 PART D [id number] SHERYL SERRANO PATIENT [employer] MEDICARE SECONDARY (NO B EXC) UPREH S Jun 08, 2009 [id number] SHERYL SERRANO PATIENT Selected Encounter This section includes the information on record at [place] for the Encounter. Date/Time Encounter Type Encounter Description Reason Pro vider Source Jan 16, 2025 09:20 AM Outpatient Encounter TELEPHONE TRIAGE IHE Encounter [...] 20 appointments. The data comes from all [facility]. Appointment Date/Time Appointment Type Appointme nt Facility Name Jan 26, 2025 01:00 PM AMBULATORY - NONE [facility] Feb 02, 2025 02:00 PM AMBULATORY - SURGERY [facility] Feb 10, 2025 07:00 AM AMBULATORY - NONE [facility] Mar 08, 2025 07:00 AM AMBULATORY - NONE [facility] Mar 08, 2025 07:30 AM AMBULATORY - NONE [facility] Active, Pending, and Scheduled Orders This section includes a listing of several types of active, pending, and scheduled orders, including clinic medications orders, diagnostic test orders, procedure orders and consult orders; where the start date of the order is 45 days before the date of the Encounter or 45 days after the date of theEncounter. The data comes from all [facility]. Test Date/Time Test Type Test Details Facility Name Jan 03, 2025 08:58 AM Consult Order COMMUNITY CARE-NEPHROLOGY DIALYSIS OVERSIGHT RENEWAL Cons Handwriting Expert[facility] Jan 03, 2025 08:58 AM Consult Order COMMUNITY CARE-DIALYSIS RENEWAL Cons Handwriting Expert[facility] Jan 17, 2025 01:16 PM Consult Order [facility] HOMEMAKER/HOME HEALTH AIDE Cons Handwriting Expert[facility] Social History: Smoking Status (Most current) and Tobacco Use (All prior to encounter date) This section includes the most current, and the historical, smoking and tobacco- related health factors from the [place] facility where the Encounter took place. Current Smoking Status This section includes the most current smoking, or tobacco-related health factor, from the [place] facility where the Encounter took place. Date/Time Current Smoking Status Comment Billie alcaraz Jan 05, 2025 02:00 PM VA-TOBACCO USE FORMER CIGARETTES [facility] Tobacco Use History This section includes a history of the smoking, or tobacco-related health factors, that were collected on or before the date of the Encounter. The data comes from the [place] facility where the Encounter took place. Date/Time Smoking Status/Tobacco Use Comment F acility Jan 05, 2025 02:00 PM VA-TOBACCO USE FORMER CIGARETTES [facility] Dec 31, 2023 01:30 PM VA-TOBACCO FORMER USER [facility] Dec 31, 2023 01:30 PM VA-TOBACCO QUIT 15 YRS OR MORE [facility] Dec 18, 2022 01:00 PM VA-TOBACCO FORMER USER [facility] Dec 18, 2022 01:00 PM VA-TOBACCO QUIT 15 YRS OR MORE [facility] November 05, 2021 10:00 AM VA-TOBACCO FORMER USER [facility] November 05, 2021 10:00 AM VA-TOBACCO QUIT 15 YRS OR MORE [facility] Dec 10, 2018 12:57 PM VA-TOBACCO FORMER USER [facility] Dec 10, 2018 12:57 PM VA-TOBACCO QUIT 15 YRS OR MORE [facility] Feb 25, 2018 12:23 PM VA-TOBACCO FORMER USER [facility] Feb 25, 2018 12:23 PM VA-TOBACCO QUIT 15 YRS OR MORE [facility] Apr 10, 2015 02:55 PM FORMER TOBACCO USER 7Y OR GREATE R [facility] Apr 27, 2014 10:17 AM FORMER TOBACCO USER 7Y OR GREATE R [facility] Jun 18, 2006 07:23 AM FORMER TOBACCO USER 7 OR GREAT R [facility] Advance Directives: All [...] Encounter. Date/Time Encounter Note(s) Provider Source Jan 16, 2025 09:21 AM PHARMACY NOTE: LOCAL TITLE: CCC: PHARMACY I STANDARD TITLE: PHARMACY NOTE DATE OF NOTE: JAN 16, 2025@09:21 ENTRY DATE: JAN 16, 2025@09:21:43 AUTHOR: KEIRY AVERY COSIGNER: URGENCY: STATUS: COMPLETED Care team is responsible for any follow up communication required with , and should contact local outpatient pharmacy for any immediate or urgent needs. Alerts are not monitored regularly by this user due to incoming calls through [place] [facility]. Medication renewal request: Medication renewal requested by: [employer] hardware [employer] sales representative (specify): Spouse Jagruti Medications to be: Mailed out. Non-controlled substance(s): Second request. Prescription has been flagged in CPRS. Added both provider and nurse to this note as part of escalation process to prevent further delays. [employer] is requesting a renewal of the following: Medication: DIALYVITE TAB Medications: Active and Recently Outpatient Medications [30 days] (excluding Supplies): Active Outpatient Medications Status 1) CLOPIDOGREL BISULFATE 75MG TAB TAKE ONE TABLET BY MOUTH ACTIVE EVERY DAY TO PREVENT BLOOD CLOTS LENGTH OF TREATMENT: INDEFINITE, CO-MANAGED CARE PRESCRIPTION Indication: TO PREVENT BLOOD CLOTS 2) CYCLOSPORINE 0.05% (PF) OPH EMUL 0.4ML INSTILL 1 DROP BOTH ACTIVE EYES TWICE A DAY 3) DM 10/GUAIFENESN 100MG/5ML (AF & SF) LIQ TAKE 1 TEASPOONFUL ACTIVE BY MOUTH EVERY 4 HOURS NEEDED FOR COUGH AND CONGESTION Indication: FOR COUGH AND CONGESTION 4) INSULIN,ASPART(EQV-NOVLG)100UN/ ML FLXPEN INJECT 5 UNITS ACTIVE UNDER THE SKIN BEFORE MEALS FOR DIABETES Indication: FOR DIABETES 5) MIDODRINE HCL 10MG TAB TAKE ONE TABLET BY MOUTH DIRECTED ACTIVE - TAKE 1 TABLET BEFORE DIALYSIS AND 1 TABLET AFTER DIALYSIS, NEEDED FOR HYPOTENSION OTHER DAYS 6) MONTELUKAST NA 10MG TAB TAKE ONE TABLET BY MOUTH EVERY DAY ACTIVE 7) PANTOPRAZOLE NA 40MG EC TAB TAKE ONE TABLET BY MOUTH EVERY ACTIVE DAY ONE-HALF HOUR BEFORE EATING. 8) PRAVASTATIN NA 40MG TAB TAKE ONE TABLET BY MOUTH AT BEDTIME ACTIVE FOR CHOLESTEROL Indication: FOR CHOLESTEROL Inactive Outpatient Medications Status 1) ALBUTEROL 90MCG (CFC-F) 200D ORAL INHL INHALE 2 PUFFS BY INHALATION EVERY 4 HOURS NEEDED FOR BREATHING SHAKE WELL (FOR IMMEDIATE RELIEF). 2) AZELASTINE 137MCG/SPRAY 200D NASAL INHL SPRAY 1 PUFF IN EACH NOSTRIL TWICE A DAY FOR NASAL SYMPTOMS Indication: FOR NASAL SYMPTOMS 3) FLUTICAS 250/SALMETEROL 50 INHL DISK 60 INHALE 1 PUFF BY INHALATION TWICE A DAY TO PREVENT TROUBLE BREATHING -RINSE MOUTH AFTER USING 4) LEVOTHYROXINE NA (SYNTHROID) 200MCG TAB TAKE ONE TABLET BY MOUTH EVERY DAY FOR THYROID Indication: FOR THYROID 5) VANICREAM TOP CREAM APPLY THIN LAYER TOPICALLY EVERY DAY FOR DRY SKIN Indication: FOR DRY SKIN Active Non-VA Medications Status 1) Non-VA ACETAMINOPHEN 650MG [...] DAY NEEDED Indication: FOR CONSTIPATION 10) Non-VA FLUTICAS 250/SALMETEROL 50 INHL DISK 60 1 PUFF ACTIVE INHALATION TWICE A DAY Indication: UNKNOWN 11) Non-VA FLUTICASONE PROP 50MCG 120D NASAL INHL 1 SPRAY EACH ACTIVE NOSTRIL EVERY DAY Indication: FOR NASAL SYMPTOMS 12) Non-VA HYDROCORTISONE 1% LOTION,TOP SMALL AMOUNT TOPICALLY ACTIVE EVERY DAY NEEDED Indication: SCALP ITCHING 13) Non-VA HYDROCORTISONE 2.5% CREAM THIN LAYER TOPICALLY TWICE ACTIVE A DAY NEEDED Indication: UNKNOWN 14) Non-VA IPRATROPIUM BROMIDE 17MCG 200D ORAL INHL 2 PUFFS ACTIVE INHALATION EVERY DAY Indication: UNKNOWN 15) Non-VA LEVOTHYROXINE NA 200MCG TAB 200MCG MOUTH EVERY DAY ACTIVE Indication: FOR THYROID 16) Non-VA LIDOCAINE 4% TOP CREAM SMALL AMOUNT TOPICALLY FOUR ACTIVE TIMES A DAY NEEDED Indication: FOR PAIN 17) Non-VA LORATADINE 10MG TAB 10MG MOUTH EVERY DAY NEEDED ACTIVE Indication: FOR ALLERGIES 18) Non-VA MIRTAZAPINE TAB 7.5 MG MOUTH AT BEDTIME ACTIVE Indication: UNKNOWN 19) Non-VA NITROGLYCERIN 0.4MG SL TAB 0.4MG UNDER THE TONGUE ACTIVE NEEDED 20) Non-VA POLYETHYLENE GLYCOL 3350 ORAL PWDR 17 GRAMS MOUTH ACTIVE EVERY DAY NEEDED Indication: FOR CONSTIPATION 21) Non-VA VITAMIN B COMPLEX CAP 1 CAPSULE MOUTH EVERY DAY ACTIVE Indication: FOR SUPPLEMENT 22) Non-VA VITAMIN E 180MG (400UNIT) CAP 400UNIT MOUTH EVERY DAY ACTIVE 23) Non-VA ZINC SULFATE TAB 50MG MOUTH EVERY DAY ACTIVE 36 Total Medications /es/ Keiry Avery CPHT V23 [facility] CABLE TELEVISION PROGRAM DIRECTOR Signed: 01/16/2025 09:22 Receipt Acknowledged By: 01/16/2025 13:55 /es/ Urvashi Munguia MD Physician 01/16/2025 13:20 /es/ JAMISON HERNANDEZ RN REGISTERED NURSE KEIRY AVERY [facility]
--- OUTSIDE RECORDS SUMMARY | 2025-01-17 08:06 | XMS_ITS | Encounter Summary ---
Author Name [facility] [facility] [place] Address [address] [place] [address] Care Team Providers Care Back Order Clerk Name Role Phone RODRÍGUEZ MATHEWS Primary Care [...] Name Patient's Relationship to Policy [facility] (WNR) MEDICARE ADVANTAGE [facility] (WNR) Jun 08, 2023 [id number] SHERYL MACKAY PATIENT MEDICARE (WNR) MEDICARE (M) RR PART A Feb 06, 2003 RR PART A [id number] SHERYL MACKAY PATIENT MEDICARE (WNR) MEDICARE (M) RR PART B Feb 06, 2003 RR PART B [id number] SHERYL MACKAY PATIENT MEDICARE PART D (WNR) MEDICARE (M) PART D Jun 08, 2022 PART D [id number] SHERYL MACKAY PATIENT [employer] MEDICARE SECONDARY (NO B EXC) UPREH S Jun 08, 2009 [id number] SHERYL MACKAY PATIENT Selected Encounter This section includes the information on record at [place] for the Encounter. Date/Time Encounter Type Encounter Description Reason Provider Source Jan 17, 2025 01:06 PM Outpatient Encounter [facility] CONS[facility] Encounter Template Text not used by [place] Plan of Treatment: Future Appointments (+ 6 months) and Future Tests (+/- 45 days) The Plan of Treatment section includes future care activities for the patient [facility] [place] [facility] This section includes future appointments and future orders which are active, pending or scheduled. Future Appointments This section includes appointments that were scheduled to occur 6 months from the date of the Encounter, up to a maximum of 20 appointments. The data comes from all [facility]. Appointment Date/Time Appointment Type Appointme nt Facility Name Jan 26, 2025 01:00 PM AMBULATORY - NONE [facility] Feb 02, 2025 02:00 PM AMBULATORY - [place] [facility] Feb 10, 2025 07:00 AM AMBULATORY - NONE [facility] Mar 08, 2025 07:00 AM [facility] Mar 08, 2025 07:30 AM [facility] Active, Pending, and Scheduled Orders This section includes a listing of several types of active, pending, and scheduled orders, including clinic medications orders, diagnostic test orders, procedure orders and consult orders; where the start date of the order is 45 days before the date of the Encounter or 45 days after the date of theEncounter. The data comes from all [facility]. Test Date/Time Test Type Test Details Facility Name Jan 03, 2025 08:58 AM Consult Order [facility] Jan 03, 2025 08:58 AM Consult Order [facility]DIAL[facility] Jan 17, 2025 01:16 PM Consult Order [facility] HOMEMAKER/HOME HEALTH AIDE [facility] Social History: Smoking Status (Most current) and Tobacco Use (All prior to encounter date) This section includes the most current, and the historical, smoking and tobacco- related health factors from the [place] facility where the Encounter took place. Current Smoking Status This section includes the most current smoking, or tobacco-related health factor, from the [place] facility where the Encounter took place. Date/Time Current Smoking Status Comment [place] Jan 05, 2025 02:00 PM VA-TOBACCO USE FORMER CIGARETTES [facility] Tobacco Use History This section includes a history of the smoking, or tobacco-related health factors, that were collected on or before the date of the Encounter. The data comes from the [facility] where the Encounter took place. Date/Time Smoking Status/Tobacco Use Comment F acility Jan 05, 2025 02:00 PM VA-TOBACCO USE FORMER CIGARETTES [facility] Dec 31, 2023 01:30 PM VA-TOBACCO FORMER USER [facility] Dec 31, 2023 01:30 PM VA-TOBACCO QUIT 15 YRS OR MORE [facility] Dec 18, 2022 01:00 PM VA-TOBACCO FORMER USER [facility] Dec 18, 2022 01:00 PM VA-TOBACCO QUIT 15 YRS OR MORE [facility] November 05, 2021 10:00 AM VA-TOBACCO FORMER USER [facility] November 05, 2021 10:00 AM VA-TOBACCO QUIT 15 YRS OR MORE [facility] Dec 10, 2018 12:57 PM VA-TOBACCO FORMER USER [facility] Dec 10, 2018 12:57 PM VA-TOBACCO QUIT 15 YRS OR MORE [facility] Feb 25, 2018 12:23 PM VA-TOBACCO FORMER USER [facility] Feb 25, 2018 12:23 PM VA-TOBACCO QUIT 15 YRS OR MORE [facility] Apr 10, 2015 02:55 PM FORMER TOBACCO USER 7Y OR GREATE R [facility] Apr 27, 2014 10:17 AM FORMER TOBACCO USER 7Y OR GREATE R [facility] Jun 18, 2006 07:23 AM FORMER TOBACCO USER 7Y OR GREATE R [facility] Advance Directives: All historical and current Section [...] 23, 2003 ADVANCE DIRECTIVE [facility] Encounter Notes: All associated encounter notes This section contains the clinical notes associated to the Encounter. Date/Time Encounter Note(s) Provider Source Jan 17, 2025 01:06 PM GERIATRIC MEDICINE NOTE: LOCAL TITLE: PERSONAL CARE SERVICES CASE MIX TOOL STANDARD TITLE: GERIATRIC MEDICINE NOTE DATE OF NOTE: JAN 17, 2025@13:06:29 ENTRY DATE: JAN 17, 2025@13:06:29 AUTHOR: DANITZA PINTO EXP COSIGNER: URGENCY: STATUS: COMPLETED PERSONAL CARE SERVICES CASE MIX TOOL Has ADDENDA HCBS Case Mix & Budget Tool (CASE MIX) Date Given: 01/17/2025 Clinician: Danitza Pinto Location: [facility] : Sheryl Mackay SSN: [id number] : [birth year] ([birth year]) Gender: Male Type of Evaluation: Annual Anticipated Start Date: 01/17/2025 Anticipated Length of Service: 12 months Case Mix Level: D ADL Category: Medium Questions and Answers: Q1. DRESSING *2 Need some help from another person to put your clothes on. Q2. GROOMING *2 Needs and get daily help from another person. Q3. BATHING *4 Need and get help washing and drying your body. Q4. EATING *2 Need and get help in cutting food, buttering bread or arranging food. Q5. BED MOBILITY 1 Need and get help sometimes to sit up. Q6. TRANSFERRING *2 Need one other person to help you. Q7. WALKING 1 Can walk with help of a cane, walker, crutch, or push wheelchair. Q8. BEHAVIOR 0 Behavior requires no intervention. Q9. COMMUNICATION 2 Sometimes Understood. Q10. TOILETING *2 Have accidents sometimes, but not more than once a week. Q11. MDS HC 2.0/CPS Cognitive Skill for Daily Decision Making 2 Moderately Impaired - decisions poor; cues/supervision required. Q12. MDS 2.0/CPS: Short Term Memory (recall of what was learned or known) 0 Short-term memory okay- seems/appears to recall after 5 minutes Q13. SPECIAL TREATMENTS 0 No [place] Q14. CLINICAL MONITORING 0 Less than once a day Q15. SPECIAL NURSING No Q16. NEUROMUSCULAR DIAGNOSIS No COMMENTS Pt. with diagnosis and ADL dependencies contributing to the need for in-home care. Agency care notes reviewed. SOURCES 2. Informant, 3. Medical Record /es/ DANITZA PINTO, RN, BSN Home and Community Based Services Sanitation Manager Signed: 01/17/2025 13:11 01/17/2025 ADDENDUM STATUS: COMPLETED Reauthorization request received from [[employer]] for the following services: [X] Home Health Aide (RN LACTATION) [16] hours/week [] Homemaking (HM) [] hours/week [] Respite [] hours/week [] Adult Day Health Care [] days/week Change in PCS as follows: [X] Home Health Aide (RN LACTATION) [13] hours/week [X] Homemaking (HM) [3] hours/week *Per care notes, HM tasks are also being performed. Authorization adjusted accordingly. First range hours continue to be adequate?: [X] Yes. [] No. Second range hours request submitted to [employer] per policy *Non-skilled [facility] Consult entered for reauthorization of services, pending provider signature. /katey/ DANITZA PINTO, RN, BSN Home and Community Based Services Sanitation Manager Signed: 01/17/2025 13:14 DANITZA PINTO [facility]
--- OUTSIDE RECORDS SUMMARY | 2025-01-19 03:56 | XMS_ITS | Continuity of Care Document ---
Author Name [facility] Organization [facility] Care Team Providers Care Candy Waffle Assembler Name Role Phone [facility] Unavailable Unavailable Problems Combined list of problems from Department of Defense and [facility] 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 It does not include entries that were removed or entered in error. Problem Status Onset Date Problem Type Date of Resolution Comments Source Adenoma of large intestine Active Condition Jan 17, 2005 Entered By: TOMMY SARMIENTO Comment: colonoscopy and polypectomy 12/10, tubular adenoma at [facility] Anemia in chronic kidney disease Active Condition [facility] Atrial fibrillation Active Condition [facility] Cardiac pacemaker in situ Active Condition Dec 30, 2024 Entered By: RODRÍGUEZ MATHEWS Comment: biventricular [facility] Carotid artery disease Active Condition Dec 30, 2024 Entered By: RODRÍGUEZ MATHEWS Comment: bilateral [facility] Cataract, Senile, Unsp Active Condition [facility] Chronic constipation Active Condition [facility] Chronic cough Active Condition [facility] Chronic obstructive lung disease Active Condition [facility] Chronic rhinitis Active Condition [facility] Complete atrioventricular block Active Condition [facility] Congestive heart failure Active Condition [facility] Coronary arteriosclerosis Active Condition Dec 30 Entered By: RODRÍGUEZ MATHEWS Comment: Coronary artery bypass x 4, left JIMMIE to LAD, SV to OM1, SV to OM2, SV to diagonals 07/09/2006 [facility] Dementia Active Condition [facility] Diabetes mellitus Active Condition [facility] Diabetic neuropathy Active Condition [facility] Diabetic renal disease Active Condition Dec 02, 2018 Entered By: PAM DALTON Comment: 10/2018: started hemodialysis @ [facility] in [facility] 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 [facility] Dyslipidemia Active Condition [facility] End-stage renal disease Active Condition [facility] Essential hypertension Active Condition [facility] Exposure to potentially hazardous substance Active Condition Dec 18, 2022 Entered By: RODRÍGUEZ MATHEWS Comment: Asbestos [facility] Ganglion of wrist Active Condition [place] [facility] Gastroesophageal reflux disease without esophagitis Active Condition [facility] Hemorrhoid Active Condition [facility] History of amputation of hallux Active Condition Dec 30, 2024 Entered By: RODRÍGUEZ MATHEWS Comment: left great toe partial amputation 09/08/2024 ([facility]) [facility] History of asbestos exposure Active Condition [facility] History of osteomyelitis Active Condition Dec 30, 2024 Entered By: RODRÍGUEZ MATHEWS Comment: left foot proximal hallus [facility] Hyperparathyroidism due to renal insufficiency Active Condition [facility] Hypothyroidism [facility] Incontinence of feces Active Condition [facility] Indwelling catheter inserted Active Condition [facility] Ischemic congestive cardiomyopathy [facility] 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 [facility] Obstructive Sleep Apnea of Adult (SCT [id number]) Active Condition October 28, 2022 Entered By: KINGS ROCHA Comment: APAP: 10-20, Ramp: 5x10 min, [place] [facility] Oropharyngeal dysphagia Active Condition Dec 14, 2022 Entered By: RODRÍGUEZ MATHEWS Comment: 2014 DRIVER WHEELCHAIR eval in chart [facility] Osteomyelitis Active Condition Dec Entered By: RODRÍGUEZ MATHEWS Comment: toe left foot [facility] Peripheral arterial occlusive disease Active Condition Dec 30 Entered By: RODRÍGUEZ MATHEWS Comment: left leg [facility] Entered By: RODRÍGUEZ MATHEWS Comment: 10/18/2024 left leg ultrasound: 50-74% stenosis in the distal common femoral artery and mid/distal superficial femoral artery , Occluded right DPA ([facility]) [facility] Protein-calorie malnutrition Active Condition [facility] Psoriasis Active Condition [facility] Psoriasis Nos [facility] Recurrent urinary tract infection Active Condition [facility] Shared care - change management consultant and GP Active Condition Jan 05 Entered By: RODRÍGUEZ MATHEWS Comment: PCP and multiple specialists, see Medicine progress note 01/05/2025Jul 2024 Entered By: RODRÍGUEZ MATHEWS Comment: CO-MANAGED CARE [facility] Skin ulcer Active Condition Dec 30 Entered By: RODRÍGUEZ MATHEWS Comment: bilateral thigh, left calf [facility] Cough (ICD-9-CM 786.2) Inactive Condition 03/23/2013 [facility] Diabetic Foot Ulcer (ICD-9-CM 250.80/707.8) Inactive Condition 03/23/2013 [facility] Diagnosis: ICD-10-CM I50.9 Heart failure, unspecified Active Diagnosis [facility] Diagnosis: ICD-10-CM R53.1 Weakness Active Diagnosis [facility] Diagnosis: ICD-10-CM R26.89 Other abnormalities of gait and mobility Active Diagnosis [facility] Diagnosis: ICD-10-CM I25.10 Athscl heart disease of [place] coronary artery w/o ang pctrs Active Diagnosis [facility] Diagnosis: ICD-10-CM M79.646 Pain in unspecified finger(s) Active Diagnosis [facility] Diagnosis: ICD-10-CM H90.3 Sensorineural hearing loss, bilateral Active Diagnosis [facility] Diagnosis: ICD-10-CM Z01.118 Encntr for exam of ears and hearing w oth abnormal findings Active Diagnosis [facility] Diagnosis: ICD-10-CM H04.129 Dry eye syndrome of unspecified lacrimal gland Active Diagnosis [facility] Diagnosis: ICD-10-CM Z46.1 Encounter for [...] Ordering Provider Order Date Order Qty Source ACETAMINOPH EN 650MG TAB,SA TAKE ONE TABLET BY MOUTH EVERY 8 HOURS NEEDED ORAL ACTIVE RODRÍGUEZ MATHEWS 2024 [facility] ALBUTEROL 90MCG/ACTUA T (CFC-F) INHL,ORAL,8 .5GM DOSE COUNTER INHALE 2 PUFFS BY INHALATI ON EVERY 4 HOURS NEEDED FOR BREATHIN G SHAKE WELL (FOR IMMEDIAT E RELIEF). RESPIR ATORY (INHAL ATION) 11/09/2024 [id number] 5 CASANDRA DALTON 2023 2 [facility] ALBUTEROL 90MCG/ACTUA T (CFC-F) INHL,ORAL,8 .5GM DOSE COUNTER INHALE 2 PUFFS BY MOUTH QID PRN RESPIR ATORY (INHAL ATION) ACTIVE RODRÍGUEZ MATHEWS 2024 [facility] ASPIRIN 325MG TAB,EC TAKE ONE TABLET BY MOUTH EVERY DAY ORAL ACTIVE RODRÍGUEZ MATHEWS 2024 [facility] AZELASTINE HCL 137MCG/SPRA Y INHL,NASAL, 30ML SPRAY 1 PUFF IN EACH NOSTRIL TWICE A DAY FOR NASAL SYMPTOMS NASAL 12/31/2024 [id number] 5 RODRÍGUEZ MATHEWS 2023 2 [facility] CALCIUM CARBONATE TAB,CHEWABL E CHEW ONE TABLET BY MOUTH FOUR TIMES A DAY NEEDED ORAL ACTIVE RODRÍGUEZ MATHEWS 2022 [facility] CARBOXYMETH YLCELLULOSE NA 1% GEL,OPH 0.4ML INSTILL 1 DROP TO BOTH EYES TWICE A DAY OPHTHA LMIC ACTIVE RODRÍGUEZ MATHEWS 2024 [facility] CHOLECALCIF TAMEKA 50MCG (2,000UNIT) TAB TAKE ONE TABLET BY MOUTH EVERY DAY ORAL ACTIVE RODRÍGUEZ MATHEWS 2024 [facility] CLOPIDOGREL BISULFATE 75MG TAB TAKE ONE TABLET BY MOUTH EVERY DAY TO PREVENT BLOOD CLOTS LENGTH OF TREATMEN T: MARIANA TE, CO-MANAG ED CARE PRESCRIP TION ORAL ACTIVE 06/16/2025 [id number] 5 RODRÍGUEZ MATHEWS 2024 90 [facility] COENZYME Q10 CAP/TAB TAKE ONE TABLET BY MOUTH EVERY DAY ORAL ACTIVE CASANDRA DALTON 2012 [facility] CYCLOSPORIN E 0.05% (PF) EMULSION,OP H,0.4ML INSTILL 1 DROP BOTH EYES TWICE A DAY OPHTHA LMIC ACTIVE 10/05/2025 [id number] 5 MATHEW EATON OD 2024 60 [facility] CYCLOSPORIN E 0.05% (PF) EMULSION,OP H,0.4ML INSTILL 1 DROP BOTH EYES TWICE A DAY OPHTHA LMIC DISCONT INUED BY PROVIDE R 08/10/2024 [id number] 4 PURFEERST ,MATHEW 2023 60 [place] [facility] DEXTROMETHO RPHAN HBR 10MG/GUAIFE NESIN 100MG/5ML (AF & SF) LIQUID TAKE 1 TEASPOON FUL BY MOUTH EVERY 4 HOURS NEEDED FOR COUGH AND CONGESTI ON ORAL ACTIVE 07/01/2025 [id number] 5 RODRÍGUEZ MATHEWS 2024 120 [place] [facility] DEXTROMETHO RPHAN HBR 10MG/GUAIFE NESIN 100MG/5ML (AF & SF) LIQUID TAKE 1 TEASPOON FUL BY MOUTH EVERY 4 HOURS NEEDED FOR COUGH AND CONGESTI ON ORAL DISCONT INUED 03/09/2024 [id number] 4 RODRÍGUEZ MATHEWS 2022 120 [facility] DIALYVITE TAB TAKE 1 TABLET BY MOUTH EVERY DAY ORAL ACTIVE 01/17/2026 [id number] 5 RODRÍGUEZ MATHEWS 2024 100 [facility] DIALYVITE TAB TAKE 1 TABLET BY MOUTH EVERY DAY ORAL 07/02/2024 [id number] 5 RODRÍGUEZ MATHEWS 2023 100 [facility] DICLOFENAC NA 1% GEL,TOP APPLY 2 GRAMS TOPICALL Y FOUR TIMES A DAY NEEDED TOPICA L ACTIVE RODRÍGUEZ MATHEWS 2024 [facility] DOCUSATE NA 50MG/SENNOS IDES 8.6MG TAB TAKE TWO TABLETS BY MOUTH TWICE A DAY NEEDED ORAL ACTIVE RODRÍGUEZ MATHEWS 2024 [facility] FLUTICASONE 250MCG/SALM ETEROL 50MCG INHL,ORAL,D ISKUS,60 INHALE 1 PUFF BY INHALATI ON TWICE A DAY TO PREVENT TROUBLE BREATHIN G -RINSE MOUTH AFTER USING RESPIR ATORY (INHAL ATION) 12/28/2024 [id number] 5 RODRÍGUEZ MATHEWS 2023 3 [facility] FLUTICASONE 250MCG/SALM ETEROL 50MCG INHL,ORAL,D ISKUS,60 INHALE 1 PUFF BY INHALATI ON TWICE A DAY RESPIR ATORY (INHAL ATION) ACTIVE BISIRODRÍGUEZ Adelita 2024 [facility] FLUTICASONE PROPIONATE 50MCG/SPRAY SOLN,NASAL, 16GM SPRAY 1 SPRAY IN EACH NOSTRIL EVERY DAY NASAL ACTIVE BISIRODRÍGUEZ 2024 [facility] HYDROCORTIS ONE 1% LOTION,TOP APPLY SMALL AMOUNT TOPICALL Y EVERY DAY NEEDED TOPICA L ACTIVE BISIRODRÍGUEZ 2024 [facility] HYDROCORTIS ONE 2.5% CREAM,TOP APPLY THIN LAYER TOPICALL Y TWICE A DAY NEEDED TOPICA L ACTIVE BISIRODRÍUGEZ 2024 [facility] INSULIN,ASP ART,HUMAN (EQV-NOVOLO G) 100 UNIT/ML,FLE XPEN,3ML INJECT 5 UNITS UNDER THE SKIN BEFORE MEALS FOR DIABETES SUBCUT ANEOUS ACTIVE 12/21/2025 [id number] 5 BISIRODRÍGUEZ 2024 5 [facility] INSULIN,ASP ART,HUMAN (EQV-NOVOLO G) 100 UNIT/ML,FLE XPEN,3ML INJECT 5 UNITS UNDER THE SKIN BEFORE MEALS FOR DIABETES SUBCUT ANEOUS DISCONT INUED 10/26/2024 [id number] 4 BISI RODRÍGUEZ 2023 5 [facility] INSULIN,GLA RGINE-YFGN 100UNIT/ML INJ PEN,3ML INJECT 18 UNITS UNDER THE SKIN EVERY DAY FOR DIABETES DISCAR D PEN 28 DAYS AFTER INITIAL USE SUBCUT ANEOUS 06/09/2024 [id number] 4 BISI, RODRÍGUEZ 2023 5 [facility] IPRATROPIUM BR 17MCG/SPRAY AEROSOL,INH L INHALE 2 PUFFS BY INHALATI ON EVERY DAY RESPIR ATORY (INHAL ATION) ACTIVE BISIRODRÍGUEZ 2024 [facility] LEVOTHYROXI NE NA 200MCG TAB TAKE ONE TABLET BY MOUTH EVERY DAY ORAL ACTIVE RODRÍGUEZ MATHEWS 2024 [place] [facility] LEVOTHYROXI NE NA 200MCG TAB (SYNTHROID) TAKE ONE TABLET BY MOUTH EVERY DAY FOR THYROID ORAL 12/28/2024 [id number] 5 BISI RODRÍGUEZ Ureña 2023 90 [facility] LIDOCAINE 4% CREAM,TOP APPLY SMALL AMOUNT TOPICALL Y FOUR TIMES A DAY NEEDED TOPICA L ACTIVE BISI, RODRÍGUEZ Adelita 2024 [facility] LORATADINE 10MG TAB TAKE ONE TABLET BY MOUTH EVERY DAY NEEDED ORAL ACTIVE BISIRODRÍGUEZ 2022 [facility] MIDODRINE HCL 10MG TAB TAKE ONE TABLET BY MOUTH DIRECTED - TAKE 1 TABLET BEFORE DIALYSIS AND 1 TABLET AFTER DIALYSIS , NEEDED FOR HYPOTENS ION OTHER DAYS ORAL ACTIVE 06/21/2025 [id number] Stefany TRAN 2024 90 [facility] MIRTAZAPINE TAB TAKE 7.5 MG BY MOUTH AT BEDTIME ORAL ACTIVE RODRÍGUEZ MATHEWS 2024 [facility] MONTELUKAST NA 10MG TAB TAKE ONE TABLET BY MOUTH EVERY DAY ORAL ACTIVE 06/21/2025 [id number] 5 CASANDRA DALTON 2024 90 [facility] MONTELUKAST NA 10MG TAB TAKE ONE TABLET BY MOUTH EVERY DAY ORAL DISCONT INUED 05/08/2024 [id number] 4 CASANDRA DALTON 2022 90 [facility] NITROGLYCER IN 0.4MG TAB,SUBLING UAL DISSOLVE ONE TABLET UNDER THE TONGUE PRN SUBLIN GUAL ACTIVE CASANDRA DALTON 2010 [facility] PANTOPRAZOL E NA 40MG TAB,EC TAKE ONE TABLET BY MOUTH EVERY DAY ONE-HALF HOUR BEFORE EATING. ORAL ACTIVE 06/21/2025 [id number] 5 CASANDRA DALTON 2024 90 [facility] PANTOPRAZOL E NA 40MG TAB,EC TAKE ONE TABLET BY MOUTH EVERY DAY ONE-HALF HOUR BEFORE EATING. ORAL DISCONT INUED 07/02/2024 [id number] 4 CASANDRA DALTON 2023 90 [place] [facility] POLYETHYLEN E GLYCOL 3350 PWDR,ORAL TAKE 17 GRAMS BY MOUTH EVERY DAY NEEDED ORAL ACTIVE RODRÍGUEZ MATHEWS 2024 [facility] PRAVASTATIN NA 40MG TAB TAKE ONE TABLET BY MOUTH AT BEDTIME FOR CHOLESTE ROL ORAL ACTIVE 11/02/2025 [id number] 5 RODRÍGUEZ MATHEWS 2024 90 [place] [facility] PRAVASTATIN NA 40MG TAB TAKE ONE TABLET BY MOUTH AT BEDTIME FOR CHOLESTE ROL ORAL 06/06/2024 [id number] 4 RODRÍGUEZ MATHEWS 2023 90 [place] [facility] SULFAMETHOX AZOLE 800MG/TRIME THOPRIM 160MG TAB TAKE 1 TABLET BY MOUTH TWICE A DAY ORAL 01/30/2024 [id number] RODRÍGUEZ MATHEWS 2023 20 [place] [facility] TIOTROPIUM 2.5MCG/ACTU AT INHL,ORAL,6 0D,4GM INHALE TWO PUFFS BY INHALATI ON EVERY DAY FOR ASTHMA RESPIR ATORY (INHAL ATION) ACTIVE 01/17/2026 [id number] 5 RODRÍGUEZ MATHEWS 2024 3 [place] [facility] TIOTROPIUM 2.5MCG/ACTU AT INHL,ORAL,6 0D,4GM INHALE TWO PUFFS BY INHALATI ON EVERY DAY FOR ASTHMA RESPIR ATORY (INHAL ATION) DISCONT INUED 04/01/2025 [id number] 4 ZULE[place],WA NA 2023 1 [place] [facility] TIOTROPIUM 2.5MCG/ACTU AT INHL,ORAL,6 0D,4GM INHALE TWO PUFFS BY INHALATI ON EVERY DAY FOR ASTHMA RESPIR ATORY (INHAL ATION) DISCONT INUED 08/26/2024 [id number] 4 [place],WA NA 2023 1 [place] [facility] TIOTROPIUM 2.5MCG/ACTU AT INHL,ORAL,6 0D,4GM INHALE TWO PUFFS BY INHALATI ON EVERY DAY FOR ASTHMA RESPIR ATORY (INHAL ATION) 06/29/2024 [id number] 5 RODRÍGUEZ MATHEWS 2024 3 [facility] VANICREAM APPLY THIN LAYER TOPICALL Y EVERY DAY FOR DRY SKIN TOPICA L DISCONT INUED 12/19/2023 [id number] 4 RODRÍGUEZ MATHEWS 2022 1362 [facility] VANICREAM APPLY THIN LAYER TOPICALL Y EVERY DAY FOR DRY SKIN TOPICA L 12/28/2024 [id number] 5 RODRÍGUEZ MATHEWS 2023 1362 [facility] VITAMIN B COMPLEX CAP TAKE 1 CAPSULE BY MOUTH EVERY DAY ORAL ACTIVE RODRÍGUEZ MATHEWS 2024 [facility] VITAMIN E 400UNT CAP TAKE 1 CAPSULE BY MOUTH EVERY DAY ORAL ACTIVE [facility] 2013 [facility] ZINC SULFATE TAB TAKE 50MG BY MOUTH EVERY DAY ORAL ACTIVE [facility] 2014 [facility] Allergies, Adverse Reactions, Alerts Combined list of allergies from Department of Defense and [facility] 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 It does not include entries that were removed or entered in error. Substance Category Reaction Severity Reaction type Status Date Reported Comments Source ATORVASTATIN Propensity to adverse reactions to drug (finding) Pain in lower limb active 9 [facility] DOXYCYCLINE Propensity to adverse reactions to drug (finding) PRURITIS, Eruption active 4 [facility] HYDROCODONE Propensity to adverse reactions to drug (finding) Disorientat ed, Drowsy, Hallucinati ons active 3 [facility] LIPITOR Propensity to adverse reactions to drug (finding) Cramp active [facility] LISINOPRIL Propensity to adverse reactions to drug (finding) Abdominal discomfort active 7 [facility] METOCLOPRAMI DE Propensity to adverse reactions to drug (finding) Gynecomasti a active 0 [facility] OMEPRAZOLE Propensity to adverse reactions to drug (finding) Diarrhea active 0 [facility] SIMVASTATIN Propensity to adverse reactions to drug (finding) MUSCASSANDRAMarika ASHWIN active 4 [facility] Immunizations Combined list of available immunizations from the Department of Defense and Veterans 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 Immunization Series Date Given Administered By Site Reaction Lot Number CVX Code Drug Label Sewer Status Comments Source INFLUENZA, RECOMBINANT, TRIVALENT, PF 2023 155 complet ed HISTORICA L INFORMATI ON - FROM OTHER [facility], [facility] INFLUENZA, RECOMBINANT, QUADRIVALENT, PF 2022 185 complet ed HISTORICA L INFORMATI ON - FROM OTHER [facility], [facility] TDAP 2022 [facility] RIGHT DELTO ID [id number] 115 complet ed [place], [facility] INFLUENZA, UNSPECIFIED FORMULATION 2021 88 complet ed HISTORICA L INFORMATI ON - FROM PATIENT'S WRITTEN RECORD, [facility] COVID-19 (Handseeing Information), MRNA, LNP-S, PF, 30 MCG/0.3 ML DOSE, ALY-SUCROSE (AGES 12+ YEARS) 2021 217 complet ed HISTORICA L INFORMATI ON - FROM OTHER [facility], [facility] COVID-19 (PFIZER), MRNA, LNP-S, PF, 30 MCG/0.3 ML DOSE 2020 208 complet ed HISTORICA L INFORMATI ON - FROM OTHER [facility], [facility] INFLUENZA, UNSPECIFIED FORMULATION 2020 88 complet ed [facility] ZOSTER RECOMBINANT 2 2020 187 complet ed [facility] COVID-19 (PFIZER), MRNA, LNP-S, PF, 30 MCG/0.3 ML DOSE 2020 208 complet ed HISTORICA L INFORMATI ON - FROM OTHER REGISTRY, [facility] COVID-19 (Handseeing Information), MRNA, LNP-S, PF, 30 MCG/0.3 ML DOSE 2020 208 complet ed HISTORICA L INFORMATI ON - FROM OTHER [facility], [facility] ZOSTER RECOMBINANT 1 2019 187 complet ed [facility] INFLUENZA, SEASONAL, INJECTABLE, PRESERVATIVE FREE 2019 140 complet ed [facility] INFLUENZA, UNSPECIFIED FORMULATION 2018 88 complet ed [facility] INFLUENZA, SEASONAL, INJECTABLE, PRESERVATIVE FREE 2017 140 complet ed [facility] INFLUENZA, HIGH DOSE SEASONAL 2016 135 complet ed [facility] INFLUENZA, HIGH-DOSE, TRIVALENT, PF 2015 135 complet ed HISTORICA L INFORMATI ON - FROM OTHER REGISTRY, [facility] INFLUENZA, HIGH DOSE SEASONAL 2014 135 complet ed [facility] PNEUMOCOCCAL CONJUGATE PCV 13 2014 133 complet ed Wyeth [id number] 08/22 [facility] INFLUENZA, UNSPECIFIED FORMULATION 2013 88 complet ed [facility] INFLUENZA, UNSPECIFIED FORMULATION 2013 88 complet ed HISTORICA L INFORMATI ON - FROM OTHER REGISTRY, [facility] ZOSTER LIVE 2013 121 complet ed HISTORICA L INFORMATI ON - FROM OTHER REGISTRY, [facility] INFLUENZA, UNSPECIFIED FORMULATION 2012 88 complet ed [facility] PNEUMOCOCCAL, UNSPECIFIED FORMULATION 2012 109 complet ed [employer], [id number], 14 [facility] TDAP 2012 115 complet ed [facility] TDAP 2012 115 complet ed [facility] ZOSTER LIVE 2012 121 complet ed [employer] Lot#[id number] [facility] TDAP 2012 115 complet ed HISTORICA L INFORMATI ON - FROM OTHER REGISTRY, [facility] INFLUENZA, UNSPECIFIED FORMULATION 2011 88 complet ed [facility] INFLUENZA, UNSPECIFIED FORMULATION 2010 88 complet ed [facility] INFLUENZA, UNSPECIFIED FORMULATION 2009 88 complet ed [facility] INFLUENZA, UNSPECIFIED FORMULATION 2008 88 complet ed [facility] TD(ADULT) UNSPECIFIED FORMULATION 2007 139 complet ed [facility] INFLUENZA, SPLIT VIRUS, TRIVALENT, PRESERVATIVE 2007 141 complet ed HISTORICA L INFORMATI ON - FROM OTHER REGISTRY, [facility] TD (ADULT), 5 LF TETANUS TOXOID, PRESERVATIVE FREE, ADSORBED 2007 113 complet ed HISTORICA L INFORMATI ON - FROM OTHER REGISTRY, [facility] INFLUENZA (HISTORICAL) 2006 88 complet ed [facility] INFLUENZA (HISTORICAL) 2005 88 complet ed [facility] INFLUENZA, UNSPECIFIED FORMULATION 2004 88 complet ed [facility] INFLUENZA, UNSPECIFIED FORMULATION 2003 88 complet ed [facility] PNEUMOCOCCAL, UNSPECIFIED FORMULATION 2003 109 complet ed [facility] TD(ADULT) UNSPECIFIED FORMULATION 2003 139 complet ed due next year [facility] INFLUENZA, SPLIT VIRUS, TRIVALENT, PRESERVATIVE 2002 141 complet ed HISTORICA L INFORMATI ON - FROM OTHER REGISTRY, [facility] INFLUENZA (HISTORICAL) 2002 88 complet ed pt states he had a Influenza vaccinati on this yr [facility] TD(ADULT) UNSPECIFIED FORMULATION 1994 139 complet ed [facility] Vital Signs Combined list of inpatient and outpatient Vital Signs from Department of Defense and Veterans Affairs, ranging from 12 months to all on record, depending upon the facility. Vital Sign Value Date Comments Source SYSTOLIC BLOOD PRESSURE 103 01/05/2025 14:40:13 [facility] DIASTOLIC BLOOD PRESSURE 63 01/05/2025 14:40:13 [facility] PULSE OXIMETRY 94 % 01/05/2025 14:40:13 [facility] PAIN 6 01/05/2025 14:40:13 [facility] TEMPERATURE 98 01/05/2025 14:40:13 [facility] PULSE 74 01/05/2025 14:40:13 [facility] RESPIRATION 16 01/05/2025 14:40:13 [facility] Encounters Combined list of: 1) Encounters from Department of Veterans Affairs facilities going backup to the last 18 months, not all [place] inpatient encounters are included; 2) Encounters from the Department of Defense facilities going backup to 280 months. Location Location Details Encounter Type Encounter Number Reason For Visit Attending Provider ADM Date DC Date Status Disposition Source [facility] CHECK BOTH EARS [id number] Diagnos is: ICD-10- CM Z46.1 Encount er for fitting and adjustm ent of hearing aid DANELLE MAYFIELD M 07/23 [place] [facility] PRO PHONE CALL 5-10 MIN [id number] Diagnos is: ICD-10- CM H04.129 Dry eye syndrom e of unspeci fied lacrima l gland STUB,FADUMO JONES K 08/09 [facility] OFF/OP EST MAY X REQ PHY/QHP [id number] Diagnos is: ICD-10- CM Z01.118 Encntr for exam of ears and hearing w oth abnorma l finding s DAYANNA CRAWFORD 10/14 [facility] Outpatient Encounter [id number] 10/23 [facility] CONFORMITY EVALUATION [id number] Diagnos is: ICD-10- CM H90.3 Sensori neural hearing loss, bilater al DAYANNA CRAWFORD 11/16 [facility] Outpatient Encounter [id number] 12/30 [facility] OFFICE O/P EST HI 40 MIN [id number] Diagnos is: ICD-10- CM M79.646 Pain in unspeci fied finger( s) Saskia MATHEWS H 12/30 [facility] Outpatient Encounter [id number] DEBRA PINTO 01/20 [facility] Outpatient Encounter [id number] 02/10 [facility] Outpatient Encounter [id number] DEBRA PINTO 02/14 [facility] Outpatient Encounter [id number] KALYANI COPELAND 02/23 [place] [facility] [place] [facility] Outpatient Encounter [id number] 03/23 [place] [facility] [place] [facility] SELF CARE MNGMENT TRAINING [id number] Diagnos is: ICD-10- CM R26.89 Other abnorma lities of gait and mobilit y RASHEL HAYES 04/07 [place] [facility] [place] [facility] SELF CARE MNGMENT TRAINING [id number] Diagnos is: ICD-10- CM R26.89 Other abnorma lities of gait and mobilit y RASHEL HAYES 04/28 [place] [facility] [place] [facility] SELF CARE MNGMENT TRAINING [id number] Diagnos is: ICD-10- CM R26.89 Other abnorma lities of gait and mobilit y RASHEL HAYES 05/17 [place] [facility] [place] [facility] Outpatient Encounter [id number] 06/06 [place] [facility] [place] [facility] Outpatient Encounter [id number] 06/14 [place] [facility] [place] [facility] Outpatient Encounter [id number] 06/20 [place] [facility] [place] [facility] Outpatient Encounter [id number] 06/20 [place] [facility] [place] [facility] NQHP OL DIG ASSMT&MGMT 5-10 [id number] Diagnos is: ICD-10- CM I25.10 Athscl heart disease of [place] coronar y artery w/o ang pctANGIE Barbour 06/20 [place] [facility] [place] [facility] Outpatient Encounter [id number] 07/11 [place] [facility] [place] [facility] Outpatient Encounter [id number] CHACASANDRA Marika 07/20 [place] [facility] [place] [facility] Outpatient Encounter [id number] KNIGHTLEANDROG 07/26 [place] [facility] [place] [facility] SELF CARE MNGMENT TRAINING [id number] Diagnos is: ICD-10- CM R26.89 Other abnorma lities of gait and mobilit y RASHEL HAYES Kaden 07/26 [place] [facility] [place] [facility] Outpatient Encounter [id number] 08/12 [place] [facility] [place] [facility] Outpatient Encounter [id number] 09/09 [place] [facility] [place] [facility] Outpatient Encounter [id number] 09/13 [place] [facility] PH1 ASSMT&MGMT NQHP 11-20 [id number] Diagnos is: ICD-10- CM R53.1 MAGGIE Parker 09/23 [facility] [place] [facility] Outpatient Encounter [id number] 10/03 [place] [facility] [place] [facility] Outpatient Encounter [id number] 10/06 [place] [facility] [place] [facility] Outpatient Encounter [id number] 10/06 [place] [facility] [place] [facility] Outpatient Encounter [id number] 10/07 [place] [facility] [place] [facility] Outpatient Encounter [id number] 10/07 [place] [facility] [place] [facility] Outpatient Encounter [id number] 10/18 [place] [facility] [place] [facility] Outpatient Encounter [id number] 10/31 [place] [facility] [place] [facility] Outpatient Encounter [id number] 11/10 [place] [facility] [place] [facility] Outpatient Encounter [id number] 01/02 [place] [facility] [place] [facility] Outpatient Encounter [id number] 01/05 [place] [facility] [place] [facility] OFFICE O/P EST HI 40 MIN [id number] Diagnos is: ICD-10- CM I50.9 Heart failure , unspeci fied Saskia MATHEWS H 01/05 [place] [facility] [place] [facility] Outpatient Encounter [id number] 01/16 [place] [facility] [place] [facility] Outpatient Encounter [id number] [facility] PIN[facility] Social History Combined list of available smoking, tobacco, and 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 Social History Type Response Date Comment Sourc e Tobacco smoking status NHIS VA-TOBACCO USE FORMER CIGARETTES 01/05/2025 [facility] History of tobacco use IA-TOBACCO NEVER USED OTHER TYPE 01/05/2025 [facility] History of tobacco use VA-TOBACCO FORMER USER 12/31/2023 [facility] History of tobacco use IA-TOBACCO FORMER USER 12/18/2022 [facility] History of tobacco use VA-TOBACCO FORMER USER 11/05/2021 [facility] History of tobacco use IA-TOBACCO QUIT 1 5 YRS OR MORE 07/28/2019 [facility] History of tobacco use VA-TOBACCO FORMER USER 12/10/2018 [facility] History of tobacco use IA-TOBACCO QUIT 1 5 YRS OR MORE 02/25/2018 [facility] History of tobacco use FORMER TOBACCO US ER 7Y OR GREATER 04/10/2015 [facility] History of tobacco use FORMER TOBACCO US ER 7Y OR GREATER 04/27/2014 [facility] History of tobacco use FORMER TOBACCO US ER 7Y OR GREATER 06/18/2006 [facility] Plan of Care List of future care activities from Department [facility] facilities. Additional future care activities may be listed in the Assessment and Plan section. Date/Time Care Activity Care Activity Detail Facili ty 01/26/2025 AMBULATORY - NONE AMBULATORY - NONE [facility] Advance Directives List of completed, amended, or rescinded Advance Directives on record at [facility] facilities. An actual copy of the Directive is not included. Date Advance Directive Provider Source 05/23/2003 ADVANCE DIRECTIVE [facility]
--- OUTSIDE RECORDS SUMMARY | 2025-01-19 03:56 | XMS_ITS | Continuity of Care Document ---
Author Name [facility] Organization [facility] Care Team Providers Care Requirements Engineer Name Role Phone [facility] Unavailable Unavailable Problems Combined list of [...] and polypectomy 12/10, tubular adenoma at [facility] Anemia in chronic kidney disease Active Condition [facility] Atrial fibrillation Active Condition [facility] Cardiac pacemaker in situ Active Condition Dec 30, 2024 Entered By: RODRÍGUEZ MATHEWS Comment: biventricular [facility] Carotid artery disease Active Condition Dec 30, 2024 Entered By: RODRÍGUEZ MATHESW Comment: bilateral [facility] Cataract, Senile, Unsp Active Condition [facility] Chronic constipation Active Condition [facility] Chronic cough Active Condition [facility] Chronic obstructive lung disease Active Condition [facility] Chronic rhinitis Active Condition [facility] Complete atrioventricular block Active Condition [facility] Congestive heart failure Active Condition [facility] Coronary arteriosclerosis Active Condition Dec 30 Entered By: RODRÍGUEZ MATHEWS Comment: Coronary artery bypass x 4, left JIMMIE to LAD, SV to OM1, SV to OM2, SV to diagonals 07/09/2006 [facility] Dementia Active Condition 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 Essential hypertension Active Condition [facility] Exposure to potentially hazardous substance Active Condition Dec 18, 2022 Entered By: RODRÍGUEZ MATHEWS Comment: Asbestos [facility] Ganglion of wrist Active Condition [place] [facility] Gastroesophageal reflux disease without esophagitis Active Condition [facility] [place] [facility] Hemorrhoid Active Condition [facility] History of amputation of hallux Active Condition Dec 30, 2024 Entered By: RODRÍGUEZ MATHEWS Comment: left great toe partial amputation 09/08/2024 ([facility] History of asbestos exposure Active Condition [facility] History of osteomyelitis Active Condition Dec 30, 2024 Entered By: RODRÍGUEZ MATHEWS Comment: left foot proximal hallus [facility] Hyperparathyroidism due to renal insufficiency Active Condition [facility] Hypothyroidism [facility] Incontinence of feces Active Condition 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 Obstructive Sleep Apnea of Adult (SCT [id number]) Active Condition October 28, 2022 Entered By: KINGS ROCHA Comment: APAP: 10-20, Ramp: 5x10 min, [place] 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 Osteomyelitis Active Condition Dec Entered By: RODRÍGUEZ MATHEWS Comment: toe left foot [facility] Peripheral arterial occlusive disease Active Condition Dec 30 Entered By: RODRÍGUEZ MATHEWS Comment: left leg [facility] Entered By: RODRÍGUEZ MATHEWS Comment: 10/18/2024 left leg ultrasound: 50-74% stenosis in the distal common femoral artery and mid/distal superficial femoral artery , Oc[place] [facility] Protein-calorie malnutrition Active Condition [facility] Psoriasis Active Condition 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 Skin ulcer Active Condition Dec 30 Entered By: RODRÍGUEZ MATHEWS Comment: bilateral thigh, left calf [facility] Cough (ICD-9-CM 786.2) Inactive Condition 03/23/2013 [facility] Diabetic Foot Ulcer (ICD-9-CM 250.80/707.8) Inactive Condition 03/23/2013 [facility] Diagnosis: ICD-10-CM I50.9 Heart failure, unspecified Active Diagnosis [facility] Diagnosis: ICD-10-CM R53.1 Weakness Active Diagnosis [facility] Diagnosis: ICD-10-CM R26.89 Other abnormalities of gait and mobility Active Diagnosis [facility] Diagnosis: ICD-10-CM I25.10 Athscl heart disease of [place] coronary artery w/o ang pctrs Active Diagnosis [facility] Diagnosis: ICD-10-CM M79.646 Pain in unspecified finger(s) Active Diagnosis [facility] Diagnosis: ICD-10-CM H90.3 Sensorineural hearing loss, bilateral Active Diagnosis [facility] Diagnosis: ICD-10-CM Z01.118 Encntr for exam of ears and hearing w oth abnormal findings Active Diagnosis [facility] Diagnosis: ICD-10-CM H04.129 Dry eye syndrome of unspecified lacrimal gland Active Diagnosis [facility] Diagnosis: ICD-10-CM Z46.1 Encounter for fitting and [...] HOURS NEEDED ORAL ACTIVE RODRÍGUEZ MATHEWS 2024 [facility] ALBUTEROL 90MCG/ACTUA T (CFC-F) INHL,ORAL,8 .5GM DOSE COUNTER INHALE 2 PUFFS BY INHALATI ON EVERY 4 HOURS NEEDED FOR BREATHIN G SHAKE WELL (FOR IMMEDIAT E RELIEF). RESPIR ATORY (INHAL ATION) 11/09/2024 [id number] 5 CASANDRA DALTON 2023 2 [facility] ALBUTEROL 90MCG/ACTUA T (CFC-F) INHL,ORAL,8 .5GM DOSE COUNTER INHALE 2 PUFFS BY MOUTH QID PRN RESPIR ATORY (INHAL ATION) ACTIVE RODRÍGUEZ MATHEWS 2024 [facility] ASPIRIN 325MG TAB,EC TAKE ONE TABLET BY MOUTH EVERY DAY ORAL ACTIVE RODRÍGUEZ MATHEWS 2024 [facility] AZELASTINE HCL 137MCG/SPRA Y INHL,NASAL, 30ML SPRAY 1 PUFF IN EACH NOSTRIL TWICE A DAY FOR NASAL SYMPTOMS NASAL 12/31/2024 [id number] 5 RODRÍGUEZ MATHEWS 2023 2 [facility] CALCIUM CARBONATE TAB,CHEWABL E CHEW ONE TABLET BY MOUTH FOUR TIMES A DAY NEEDED ORAL ACTIVE RODRÍGUEZ MATHEWS 2022 [facility] CARBOXYMETH YLCELLULOSE NA 1% GEL,OPH 0.4ML INSTILL 1 DROP TO BOTH EYES TWICE A DAY OPHTHA LMIC ACTIVE RODRÍGUEZ MATHEWS 2024 [facility] CHOLECALCIF TAMEKA 50MCG (2,000UNIT) TAB TAKE ONE TABLET BY MOUTH EVERY DAY ORAL ACTIVE RODRÍGUEZ MATHEWS 2024 [facility] CLOPIDOGREL BISULFATE 75MG TAB TAKE ONE TABLET BY MOUTH EVERY DAY TO PREVENT BLOOD CLOTS LENGTH OF TREATMEN T: MARIANA TE, CO-MANAG ED CARE PRESCRIP TION ORAL ACTIVE 06/16/2025 [id number] 5 RODRÍGUEZ MATHEWS 2024 90 [facility] COENZYME Q10 CAP/TAB TAKE ONE TABLET BY MOUTH EVERY DAY ORAL ACTIVE CASANDRA DALTON 2012 [facility] CYCLOSPORIN E 0.05% (PF) EMULSION,OP H,0.4ML INSTILL 1 DROP BOTH EYES TWICE A DAY OPHTHA LMIC ACTIVE 10/05/2025 [id number] 5 MATHEW EATON OD 2024 60 [facility] CYCLOSPORIN E 0.05% (PF) EMULSION,OP H,0.4ML INSTILL 1 DROP BOTH EYES TWICE A DAY OPHTHA LMIC DISCONT INUED BY PROVIDE R 08/10/2024 [id number] 4 PURFEERST ,MATHEW 2023 60 [place] [facility] DEXTROMETHO RPHAN HBR 10MG/GUAIFE NESIN 100MG/5ML (AF & SF) LIQUID TAKE 1 TEASPOON FUL BY MOUTH EVERY 4 HOURS NEEDED FOR COUGH AND CONGESTI ON ORAL ACTIVE 07/01/2025 [id number] 5 RODRÍGUEZ MATHEWS 2024 120 [place] [facility] DEXTROMETHO RPHAN HBR 10MG/GUAIFE NESIN 100MG/5ML (AF & SF) LIQUID TAKE 1 TEASPOON FUL BY MOUTH EVERY 4 HOURS NEEDED FOR COUGH AND CONGESTI ON ORAL DISCONT INUED 03/09/2024 [id number] 4 RODRÍGUEZ MATHEWS 2022 120 [facility] DIALYVITE TAB TAKE 1 TABLET BY MOUTH EVERY DAY ORAL ACTIVE 01/17/2026 [id number] 5 RODRÍGUEZ MATHEWS 2024 100 [facility] DIALYVITE TAB TAKE 1 TABLET BY MOUTH EVERY DAY ORAL 07/02/2024 [id number] 5 RODRÍGUEZ MATHEWS 2023 100 [facility] DICLOFENAC NA 1% GEL,TOP APPLY 2 GRAMS TOPICALL Y FOUR TIMES A DAY NEEDED TOPICA L ACTIVE RODRÍGUEZ MATHEWS 2024 [facility] DOCUSATE NA 50MG/SENNOS IDES 8.6MG TAB TAKE TWO TABLETS BY MOUTH TWICE A DAY NEEDED ORAL ACTIVE RORDÍGUEZ MATHEWS 2024 [facility] FLUTICASONE 250MCG/SALM ETEROL 50MCG INHL,ORAL,D ISKUS,60 INHALE 1 PUFF BY INHALATI ON TWICE A DAY TO PREVENT TROUBLE BREATHIN G -RINSE MOUTH AFTER USING RESPIR ATORY (INHAL ATION) 12/28/2024 [id number] 5 RODRÍGUEZ MATHEWS 2023 3 [facility] FLUTICASONE 250MCG/SALM ETEROL 50MCG INHL,ORAL,D ISKUS,60 INHALE 1 PUFF BY INHALATI ON TWICE A DAY RESPIR ATORY (INHAL ATION) ACTIVE BISIRODRÍGUEZ Adelita 2024 [facility] FLUTICASONE PROPIONATE 50MCG/SPRAY SOLN,NASAL, 16GM SPRAY 1 SPRAY IN EACH NOSTRIL EVERY DAY NASAL ACTIVE BISIRODRÍGUEZ 2024 [facility] HYDROCORTIS ONE 1% LOTION,TOP APPLY SMALL AMOUNT TOPICALL Y EVERY DAY NEEDED TOPICA L ACTIVE BISIRODRÍGUEZ 2024 [facility] HYDROCORTIS ONE 2.5% CREAM,TOP APPLY THIN LAYER TOPICALL Y TWICE A DAY NEEDED TOPICA L ACTIVE BISIRODRÍGUEZ 2024 [facility] INSULIN,ASP ART,HUMAN (EQV-NOVOLO G) 100 UNIT/ML,FLE XPEN,3ML INJECT 5 UNITS UNDER THE SKIN BEFORE MEALS FOR DIABETES SUBCUT ANEOUS ACTIVE 12/21/2025 [id number] 5 BISIRODRÍGUEZ 2024 5 [facility] INSULIN,ASP ART,HUMAN (EQV-NOVOLO G) 100 UNIT/ML,FLE XPEN,3ML INJECT 5 UNITS UNDER THE SKIN BEFORE MEALS FOR DIABETES SUBCUT ANEOUS DISCONT INUED 10/26/2024 [id number] 4 BISI RODRÍGUEZ 2023 5 [facility] INSULIN,GLA RGINE-YFGN 100UNIT/ML INJ PEN,3ML INJECT 18 UNITS UNDER THE SKIN EVERY DAY FOR DIABETES DISCAR D PEN 28 DAYS AFTER INITIAL USE SUBCUT ANEOUS 06/09/2024 [id number] 4 BISI, RODRÍGUEZ 2023 5 [facility] IPRATROPIUM BR 17MCG/SPRAY AEROSOL,INH L INHALE 2 PUFFS BY INHALATI ON EVERY DAY RESPIR ATORY (INHAL ATION) ACTIVE BISIRODRÍGUEZ 2024 [facility] LEVOTHYROXI NE NA 200MCG TAB TAKE ONE TABLET BY MOUTH EVERY DAY ORAL ACTIVE RODRÍGUEZ MATHEWS 2024 [place] [facility] LEVOTHYROXI NE NA 200MCG TAB (SYNTHROID) TAKE ONE TABLET BY MOUTH EVERY DAY FOR THYROID ORAL 12/28/2024 [id number] BISI RODRÍGUEZ Ureña 2023 90 [facility] LIDOCAINE 4% CREAM,TOP APPLY SMALL AMOUNT TOPICALL Y FOUR TIMES A DAY NEEDED TOPICA L ACTIVE BISI, RODRÍGUEZ Adelita 2024 [facility] LORATADINE 10MG TAB TAKE ONE TABLET BY MOUTH EVERY DAY NEEDED ORAL ACTIVE BISIRODRÍGUEZ 2022 [facility] MIDODRINE HCL 10MG TAB TAKE ONE TABLET BY MOUTH DIRECTED - TAKE 1 TABLET BEFORE DIALYSIS AND 1 TABLET AFTER DIALYSIS , NEEDED FOR HYPOTENS ION OTHER DAYS ORAL ACTIVE 06/21/2025 [id number] Stefany TRAN 2024 90 [facility] MIRTAZAPINE TAB TAKE 7.5 MG BY MOUTH AT BEDTIME ORAL ACTIVE RODRÍGUEZ MATHEWS 2024 [facility] MONTELUKAST NA 10MG TAB TAKE ONE TABLET BY MOUTH EVERY DAY ORAL ACTIVE 06/21/2025 [id number] 5 CASANDRA DALTON 2024 90 [facility] MONTELUKAST NA 10MG TAB TAKE ONE TABLET BY MOUTH EVERY DAY ORAL DISCONT INUED 05/08/2024 [id number] 4 CASANDRA DALTON 2022 90 [facility] NITROGLYCER IN 0.4MG TAB,SUBLING UAL DISSOLVE ONE TABLET UNDER THE TONGUE PRN SUBLIN GUAL ACTIVE CASANDRA DALTON 2010 [facility] PANTOPRAZOL E NA 40MG TAB,EC TAKE ONE TABLET BY MOUTH EVERY DAY ONE-HALF HOUR BEFORE EATING. ORAL ACTIVE 06/21/2025 [id number] 5 CASANDRA DALTON 2024 90 [facility] PANTOPRAZOL E NA 40MG TAB,EC TAKE ONE TABLET BY MOUTH EVERY DAY ONE-HALF HOUR BEFORE EATING. ORAL DISCONT INUED 07/02/2024 [id number] 4 CASANDRA DALTON 2023 90 [place] [facility] POLYETHYLEN E GLYCOL 3350 PWDR,ORAL TAKE 17 GRAMS BY MOUTH EVERY DAY NEEDED ORAL ACTIVE RODRÍGUEZ MATHEWS 2024 [facility] PRAVASTATIN NA 40MG TAB TAKE ONE TABLET BY MOUTH AT BEDTIME FOR CHOLESTE ROL ORAL ACTIVE 11/02/2025 [id number] 5 RODRÍGUEZ MATHEWS 2024 90 [place] [facility] PRAVASTATIN NA 40MG TAB TAKE ONE TABLET BY MOUTH AT BEDTIME FOR CHOLESTE ROL ORAL 06/06/2024 [id number] 4 RODRÍGUEZ MATHEWS 2023 90 [place] [facility] SULFAMETHOX AZOLE 800MG/TRIME THOPRIM 160MG TAB TAKE 1 TABLET BY MOUTH TWICE A DAY ORAL 01/30/2024 [id number] 4 RODRÍGUEZ MATHEWS 2023 20 [place] [facility] TIOTROPIUM 2.5MCG/ACTU AT INHL,ORAL,6 0D,4GM INHALE TWO PUFFS BY INHALATI ON EVERY DAY FOR ASTHMA RESPIR ATORY (INHAL ATION) ACTIVE 01/17/2026 [id number] RODRÍGUEZ MATHEWS 2024 3 [place] [facility] TIOTROPIUM 2.5MCG/ACTU AT INHL,ORAL,6 0D,4GM INHALE TWO PUFFS BY INHALATI ON EVERY DAY FOR ASTHMA RESPIR ATORY (INHAL ATION) DISCONT INUED 04/01/2025 [id number] 4 [place] NA 2023 1 [place] [facility] TIOTROPIUM 2.5MCG/ACTU AT INHL,ORAL,6 0D,4GM INHALE TWO PUFFS BY INHALATI ON EVERY DAY FOR ASTHMA RESPIR ATORY (INHAL ATION) DISCONT INUED 08/26/2024 [id number] 4 [place] NA 2023 1 [place] [facility] TIOTROPIUM 2.5MCG/ACTU AT INHL,ORAL,6 0D,4GM INHALE TWO PUFFS BY INHALATI ON EVERY DAY FOR ASTHMA RESPIR ATORY (INHAL ATION) 06/29/2024 [id number] 5 RODRÍGUEZ MATHEWS 2024 3 [facility] VANICREAM APPLY THIN LAYER TOPICALL Y EVERY DAY FOR DRY SKIN TOPICA L DISCONT INUED 12/19/2023 [id number] 4 RODRÍGUEZ MATHEWS 2022 1362 [facility] VANICREAM APPLY THIN LAYER TOPICALL Y EVERY DAY FOR DRY SKIN TOPICA L 12/28/2024 [id number] 5 RODRÍGUEZ MATHEWS 2023 1362 [facility] VITAMIN B COMPLEX CAP TAKE 1 CAPSULE BY MOUTH EVERY DAY ORAL ACTIVE RODRÍGUEZ MATHEWS 2024 [facility] VITAMIN E 400UNT CAP TAKE 1 CAPSULE BY MOUTH EVERY DAY ORAL ACTIVE [facility] 2013 [facility] ZINC SULFATE TAB TAKE 50MG BY MOUTH EVERY DAY ORAL ACTIVE [facility] 2014 [facility] Allergies, Adverse Reactions, [...] reactions to drug (finding) [facility] LISINOPRIL Propensity to adverse reactions to drug (finding) Abdominal discomfort active 7 [facility] METOCLOPRAMI DE Propensity to adverse reactions to drug (finding) Gynecomasti a active 0 [place] [facility] OMEPRAZOLE Propensity to adverse reactions to drug (finding) Diarrhea active 0 [place] [facility] SIMVASTATIN Propensity to adverse reactions to drug (finding) MUSCASSANDRAMarika ASHWIN active 4 [facility] Immunizations Combined list of available immunizations from the Department of Defense and Veterans 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 Comments Source INFLUENZA, RECOMBINANT, TRIVALENT, PF 2023 155 complet ed HISTORICA L INFORMATI ON - FROM OTHER [facility], [facility] INFLUENZA, RECOMBINANT, QUADRIVALENT, PF 2022 185 complet ed HISTORICA L INFORMATI ON - FROM OTHER [facility], [facility] TDAP 2022 [facility] RIGHT DELTO ID [id number] 115 complet ed ADMIN[facility]ika [facility], [facility] INFLUENZA, UNSPECIFIED FORMULATION 2021 88 complet ed HISTORICA L INFORMATI ON - FROM PATIENT'S WRITTEN RECORD, [facility] COVID-19 (Inotec AMD), MRNA, LNP-S, PF, 30 MCG/0.3 ML DOSE, ALY-SUCROSE (AGES 12+ YEARS) 2021 217 complet ed HISTORICA L INFORMATI ON - FROM OTHER [facility], [facility] COVID-19 (PFIZER), MRNA, LNP-S, PF, 30 MCG/0.3 ML DOSE 2020 208 complet ed HISTORICA L INFORMATI ON - FROM OTHER [facility], [facility] INFLUENZA, UNSPECIFIED FORMULATION 2020 88 complet ed [facility] ZOSTER RECOMBINANT 2 2020 187 complet ed [facility] COVID-19 (PFIZER), MRNA, LNP-S, PF, 30 MCG/0.3 ML DOSE 2020 208 complet ed HISTORICA L INFORMATI ON - FROM OTHER REGISTRY, [facility] COVID-19 (Inotec AMD), MRNA, LNP-S, PF, 30 MCG/0.3 ML DOSE 2020 208 complet ed HISTORICA L INFORMATI ON - FROM OTHER [facility], [facility] ZOSTER RECOMBINANT 1 2019 187 complet ed [facility] INFLUENZA, SEASONAL, INJECTABLE, PRESERVATIVE FREE 2019 140 complet ed [facility] INFLUENZA, UNSPECIFIED FORMULATION 2018 88 complet ed [facility] INFLUENZA, SEASONAL, INJECTABLE, PRESERVATIVE FREE 2017 140 complet ed [facility] INFLUENZA, HIGH DOSE SEASONAL 2016 135 complet ed [facility] INFLUENZA, HIGH-DOSE, TRIVALENT, PF 2015 135 complet ed HISTORICA L INFORMATI ON - FROM OTHER REGISTRY, [facility] INFLUENZA, HIGH DOSE SEASONAL 2014 135 complet ed [facility] PNEUMOCOCCAL CONJUGATE PCV 13 2014 133 complet ed [place] [id number] 08/22 [facility] INFLUENZA, UNSPECIFIED FORMULATION 2013 88 complet ed [facility] INFLUENZA, UNSPECIFIED FORMULATION 2013 88 complet ed HISTORICA L INFORMATI ON - FROM OTHER REGISTRY, [facility] ZOSTER LIVE 2013 121 complet ed HISTORICA L INFORMATI ON - FROM OTHER REGISTRY, [facility] INFLUENZA, UNSPECIFIED FORMULATION 2012 88 complet ed [facility] PNEUMOCOCCAL, UNSPECIFIED FORMULATION 2012 109 complet ed [employer], [id number], 14 [facility] TDAP 2012 115 complet ed [facility] TDAP 2012 115 complet ed [facility] ZOSTER LIVE 2012 121 complet ed [employer] Lot#[id number] 14 [facility] TDAP 2012 115 complet ed HISTORICA L INFORMATI ON - FROM OTHER REGISTRY, [facility] INFLUENZA, UNSPECIFIED FORMULATION 2011 88 [...] L INFORMATI ON - FROM OTHER REGISTRY, [facility] TD (ADULT), 5 LF TETANUS TOXOID, PRESERVATIVE FREE, ADSORBED 2007 113 complet ed HISTORICA L INFORMATI ON - FROM OTHER REGISTRY, [facility] INFLUENZA (HISTORICAL) 2006 88 complet [...] L INFORMATI ON - FROM OTHER REGISTRY, [facility] INFLUENZA (HISTORICAL) 2002 88 complet [...] Source SYSTOLIC BLOOD PRESSURE 103 01/05/2025 14:40:13 [facility] DIASTOLIC BLOOD PRESSURE 63 01/05/2025 14:40:13 [facility] PULSE OXIMETRY 94 % 01/05/2025 14:40:13 [facility] PAIN 6 01/05/2025 14:40:13 [facility] TEMPERATURE 98 01/05/2025 14:40:13 [facility] PULSE 74 01/05/2025 14:40:13 [facility] RESPIRATION 16 01/05/2025 14:40:13 [facility] Encounters Combined list of: 1) Encounters from Department of Veterans Affairs facilities going backup to the last 18 months, not all [place] inpatient encounters are included; 2) Encounters from the Department of Defense facilities going backup to 280 months. Location Location Details Encounter Type Encounter Number Reason For Visit Attending Provider ADM Date DC Date Status Disposition Source [facility] CHECK BOTH EARS [id number] Diagnos is: ICD-10- CM Z46.1 Encount er for fitting and adjustm ent of hearing aid DANELLE MAYFIELD M 07/23 [place] [facility] PHONE CALL 5-10 MIN [id number] Diagnos is: ICD-10- CM H04.129 Dry eye syndrom e of unspeci fied lacrima l gland STUB,FADUMO JONES K 08/09 [facility] OFF/OP EST MAY X REQ PHY/QHP [id number] Diagnos is: ICD-10- CM Z01.118 Encntr for exam of ears and hearing w oth abnorma l finding s DAYANNA CRAWFORD 10/14 [facility] Outpatient Encounter [id number] 10/23 [facility] CONFORMITY EVALUATION [id number] Diagnos is: ICD-10- CM H90.3 Sensori neural hearing loss, bilater al DAYANNA CRAWFORD 11/16 [facility] Outpatient Encounter [id number] 12/30 [facility] OFFICE O/P EST HI 40 MIN [id number] Diagnos is: ICD-10- CM M79.646 Pain in unspeci fied finger( s) Saskia MATHEWS H 12/30 [facility] Outpatient Encounter [id number] DEBRA PINTO 01/20 [facility] Outpatient Encounter [id number] 02/10 [facility] Outpatient Encounter [id number] DEBRA PINTO 02/14 [facility] Outpatient Encounter [id number] KALYANI COPELAND 02/23 [place] [facility] [place] [facility] Outpatient Encounter [id number] 03/23 [place] [facility] [place] [facility] SELF CARE MNGMENT TRAINING [id number] Diagnos is: ICD-10- CM R26.89 Other abnorma lities of gait and mobilit y RASHEL HAYES 04/07 [place] [facility] [place] [facility] SELF CARE MNGMENT TRAINING [id number] Diagnos is: ICD-10- CM R26.89 Other abnorma lities of gait and mobilit y RASHEL HAYES 04/28 [place] [facility] [place] [facility] SELF CARE MNGMENT TRAINING [id number] Diagnos is: ICD-10- CM R26.89 Other abnorma lities of gait and mobilit y RASHEL HAYES 05/17 [place] [facility] [place] [facility] Outpatient Encounter [id number] 06/06 [place] [facility] [place] [facility] Outpatient Encounter [id number] 06/14 [place] [facility] [place] [facility] Outpatient Encounter [id number] 06/20 [place] [facility] [place] [facility] Outpatient Encounter [id number] 06/20 [place] [facility] [place] [facility] NQHP OL DIG ASSMT&MGMT 5-10 [id number] Diagnos is: ICD-10- CM I25.10 [facility] heart disease of [place] coronar y artery w/o ang pctANGIE Barbour 06/20 [place] [facility] [place] [facility] Outpatient Encounter [id number] 07/11 [facility] [place] [facility] Outpatient Encounter [id number] CHACASANDRA Marika 07/20 [place] [facility] [place] [facility] Outpatient Encounter [id number] KNIGHTLEANDROG 07/26 [place] [facility] [place] [facility] SELF CARE MNGMENT TRAINING [id number] Diagnos is: ICD-10- CM R26.89 Other abnorma lities of gait and mobilit y RASHEL HAYES Kaden 07/26 [facility] [place] [facility] Outpatient Encounter [id number] 08/12 [place] [facility] [place] [facility] Out[place] Encounter [id number] 09/09 [place] [facility] [place] [facility] Out[place] Encounter [id number] 09/13 [facility] PH1 ASSMT&MGMT NQHP 11-20 [id number] Diagnos is: ICD-10- CM R53.1 MAGGIE Parker 09/23 [facility] [place] [facility] Outpatient Encounter [id number] 10/03 [place] [facility] [place] [facility] Out[place] Encounter [id number] 10/06 [place] [facility] [place] [facility] Out[place] Encounter [id number] 10/06 [place] [facility] [place] [facility] Out[place] Encounter [id number] 10/07 [place] [facility] [place] [facility] Outpatient Encounter [id number] 10/07 [place] [facility] [place] [facility] Outpatient Encounter [id number] 10/18 [facility] [facility] [place] [facility] Outpatient Encounter [id number] 10/31 [place] [facility] [place] [facility] Outpatient Encounter [id number] 11/10 [place] [facility] [place] [facility] Outpatient Encounter [id number] 01/02 [place] [facility] [place] [facility] Outpatient Encounter [id number] 01/05 [place] [facility] [place] [facility] OFFICE O/P EST HI 40 MIN [id number] Diagnos is: ICD-10- CM I50.9 Heart failure , unspeci fied Saskia MATHEWS H 01/05 [place] [facility] [place] [facility] Outpatient Encounter [id number] 01/16 [place] [facility] [place] [facility] Outpatient Encounter [id number] DEBRA PINTO 01/17 [facility] Social History Combined list of available smoking, tobacco, and 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 Social History Type Response Date Comment Sourc e Tobacco smoking status NHIS VA-TOBACCO USE FORMER CIGARETTES 01/05/2025 [facility] History of tobacco use NH-TOBACCO NEVER USED OTHER TYPE 01/05/2025 [facility] History of tobacco use VA-TOBACCO FORMER USER 12/31/2023 [facility] History of tobacco use NH-TOBACCO FORMER USER 12/18/2022 [facility] History of tobacco use VA-TOBACCO FORMER USER 11/05/2021 [facility] History of tobacco use NH-TOBACCO QUIT 1 5 YRS OR MORE 07/28/2019 [facility] History of tobacco use VA-TOBACCO FORMER USER 12/10/2018 [facility] History of tobacco use NH-TOBACCO QUIT 1 5 YRS OR MORE 02/25/2018 [facility] History of tobacco use FORMER TOBACCO US ER 7Y OR GREATER 04/10/2015 [facility] History of tobacco use FORMER TOBACCO US ER 7Y OR GREATER 04/27/2014 [facility] History of tobacco use FORMER TOBACCO US ER 7Y OR GREATER 06/18/2006 [facility] Plan of Care List of future care activities from Department [facility] facilities. Additional future care activities may be listed in the Assessment and Plan section. Date/Time Care Activity Care Activity Detail Facili ty 01/26/2025 AMBULATORY - NONE AMBULATORY - NONE [facility] Advance Directives List of completed, amended, or rescinded Advance Directives on record at [facility] facilities. An actual copy of the Directive is not included. Date Advance Directive Provider Source 05/23/2003 ADVANCE DIRECTIVE [facility]
--- OUTSIDE RECORDS SUMMARY | 2025-01-19 16:54 | XMS_ITS | Encounter Summary ---
Author Organization [facility] [place] [place] Address [address] [place] [address] Care Team Providers Care Roll Grinder Operator Name Role Phone Unavailable Primary Care Provider Unavailabl e Encounter Details Date Type Department Care Team (Late st Contact Info) Description 01/11/2025 Orders Only [facility] [place] [address] [facility] [address] [place] [address] Darren Youssef MD [address] [place] [address] Social History Tobacco Use Types [...] Date/Time Associated Diagnosis Comments HD KINETICS Routine 01/11/2025 POST CHEMISTRY Routine 01/11/2025 HEMATOLOGY Routine 01/11/2025 CHEMISTRY Routine 01/11/2025 CHEMISTRY Routine 01/11/2025 [facility] Routine 01/11/2025 documented in this encounter Results * [facility] Results (01/11/2025) eNPCR 1.09 [facility] spKt/V Gotch 1.49 [facility] nPCR_HD 1.18 [facility] WSTDKT/V 2.4 [facility] eKt/V Gotch 1.26 [facility] e Beattie eKdrt/V 1.26 [facility] PCR 82.46 [facility] spKt/V (Daugirdas II) 1.47 [facility] eKt/V (Tattersall) 1.26 [facility] 01/11/2025 01/11/2025 [facility] Ordering Provider LAB BLOOD ORDERABLES Final Result [facility] Contact Performing lab Unknown, [place] * HD KINETICS (01/11/2025) Pathologist [facility] % Urea Reduction 71 65 - 80 % [facility] 01/11/2025 01/13/2025 3:4 9 AM CDT Narrative [facility] - 01/13/2025 Unless otherwise specified, test(s) performed at: [facility], [address] [place] [address], [place] [address] CELL REPAIRER: Rojas Kirkland M.D., Ph.D For any questions, please call customer service at FREQUENCY:MONTHLY Resulting Agency Comment Specimen source: Plasma Darren Youssef MD LAB BLOOD ORDERABLES Final Re sult [facility] See order comments or contact performing lab Unknown, [place] * (ABNORMAL) [facility] (01/11/2025) Pathologist [facility] BUN 70(H) 6 - 19 mg/dL [facility] Creatinine 6.05(H) 0.60 - 1.30 mg/dL [facility] BUN/Creatinine Ratio 11.6 10.0 - 20.0 [facility] Sodium 132(L) 136 - 145 mEq/L [facility] Potassium 3.7 3.5 - 5.1 mEq/L [facility] Chloride 92(L) 96 - 108 mEq/L [facility] Bicarbonate (CO2) 26 20 - 31 mEq/L [facility] Calcium 9.9 8.7 - 10.4 mg/dL [facility] Comment: Please note change in reference range. Corrected Calcium 10.2 8.7 - 10.4 mg/dL [facility] Comment: Corrected Calcium is not equivalent to measured Ionized Calcium. Phosphorus 2.6 2.6 - 4.5 mg/dL [facility] Calcium Phosphorus Product 26 0 - 54 [facility] Calcium Phosporus Product, Cor 27 0 - 54 [facility] Total Protein 7.1 6.0 - 8.5 g/dL [facility] Albumin 3.6 3.5 - 5.2 g/dL [facility] Globulin, Total 3.5 2.0 - 4.0 g/dL [facility] A/G Ratio 1.0 1.0 - 2.0 [facility] Ferritin 1,306(H) 22 - 322 ng/mL [facility] Comment: Verified by repeat analysis. Iron 30(L) 45 - 160 mcg/dL [facility] UIBC 134(L) 155 - 355 mcg/dL [facility] TIBC 164(L) 185 - 515 mcg/dL [facility] Iron Saturation (TSat) 18(L) 20 - 55 % [facility] 01/11/2025 01/13/2025 1:5 4 AM CDT Narrative [facility] - 01/13/2025 Unless otherwise specified, test(s) performed at: [facility], [address] [place] [address], [place] [address] CELL REPAIRER: Rojas Kirkland M.D., Ph.D For any questions, please call customer service at FREQUENCY:MONTHLY Resulting Agency Comment Specimen source: Serum us Darren Youssef MD LAB BLOOD ORDERABLES Final Re sult [facility] [employer] See order comments or contact performing lab Unknown, [place] * [facility] (01/11/2025) PTH 41 16 - 80 pg/mL [facility] 01/11/2025 01/13/2025 3:0 6 AM CDT Narrative [facility] - 01/13/2025 Unless otherwise specified, test(s) performed at: [facility], [address] [place] [address], [place] [address] CELL REPAIRER: Rojas Kirkland M.D., Ph.D For any questions, please call customer service at FREQUENCY:MONTHLY Resulting Agency Comment Specimen source: Plasma Darren Youssef MD LAB BLOOD ORDERABLES Final [facility] Performing Organization Address [facility]/ZIP Co de Phone Number [facility] See order comments or contact performing lab Unknown, [place] * (ABNORMAL) POST CHEMISTRY (01/11/2025) Pathologist [facility] BUN Post Dialysis 20(H) 6 - 19 mg/dL [facility] 01/11/2025 01/13/2025 3:4 9 AM CDT Narrative [facility] - 01/13/2025 Unless otherwise specified, test(s) performed at: [facility], [address] [place] [address], [place] [address] CELL REPAIRER: Rjoas Kirkland M.D., Ph.D For any questions, please call customer service at FREQUENCY:MONTHLY Resulting Agency Comment Specimen source: Plasma Darren Youssef MD LAB BLOOD ORDERABLES Final [facility] Performing Organization Address [facility] de Phone Number [facility] See order comments or contact performing lab Unknown, [place] * (ABNORMAL) HEMATOLOGY (01/11/2025) [facility] Neutrophils 83.6(H) 40.0 - 75.0 % [facility] Lymphocytes Relative 4.4(L) 19.0 - 48.0 % [facility] Monocytes 7.5 3.0 - 10.0 % [facility] Eosinophils Relative 2.3 0.0 - 7.0 % [facility] Basophils Relative 0.5 0.0 - 1.5 % [facility] COURTNEY 1.7 0.0 - 4.0 % [facility] WBC 10.47 4.80 - 10.80 1000/mcL [facility] RBC 3.61(L) 4.70 - 6.10 mill/mcL [facility] Hematocrit 36.4(L) 42.0 - 52.0 % [facility] MCV 101(H) 80 - 100 fl [facility] MCH 31.3(H) 27.0 - 31.0 pg [facility] MCHC 31.0 30.0 - 36.0 g/dL [facility] RDW 18.0(H) 11.5 - 14.5 % [facility] Hemoglobin 11.3(L) 14.0 - 18.0 g/dL [facility] Hemoglobin x 3 33.9(L) 42.0 - 54.0 % [facility] Platelets 204 130 - 400 1000/mcL [facility] 01/11/2025 01/12/2025 5:1 3 PM CDT Narrative [facility] - 01/12/2025 Unless otherwise specified, test(s) performed at: [facility], [address] [place] [address], [place] [address] CELL REPAIRER: Rojas Kirkland M.D., Ph.D For any questions, please call customer service at FREQUENCY:MONTHLY Resulting Agency Comment Specimen source: Blood us Darren Youssef MD LAB BLOOD ORDERABLES Final Re sult [facility] See order comments or contact performing lab Unknown, [place] documented in this encounter Visit Diagnoses Not on filedocumented in this encounter
--- OUTSIDE RECORDS SUMMARY | 2025-01-19 16:54 | XMS_ITS | Encounter Summary ---
Author Organization [facility] [place] [place] Address [address] [place] [address] Care Team Providers Care Detention Officer Name Role Phone Unavailable Primary Care Provider Unavailabl e Encounter Details Date Type Department Care Team (Late st Contact Info) Description 01/04/2025 Orders Only [facility] [place] [address] [facility] [address] [place] [address] Darren Youssef MD [address] [place] [address] Social History Tobacco Use Types [...] Priority Date/Time Associated Diagnosis Comments HEMATOLOGY Routine 01/04/2025 documented in this encounter Results * (ABNORMAL) HEMATOLOGY (01/04/2025) Hemoglobin 10.7(L) 14.0 - 18.0 g/dL [facility] Hemoglobin x 3 32.1(L) 42.0 - 54.0 % [facility] 01/04/2025 01/05/2025 6:4 7 AM CDT Narrative [facility] - 01/05/2025 Unless otherwise specified, test(s) performed at: [facility], [address] [place] [address], [place] [address] COLLECTIONS DIRECTOR: Rojas Kirkland M.D., Ph.D For any questions, please call customer service at FREQUENCY:OTHER Resulting Agency Comment Specimen source: Blood us Darren Youssef MD LAB BLOOD ORDERABLES Final Re sult [facility] See order comments or contact performing lab Unknown, [place] documented in this encounter Visit Diagnoses Not on filedocumented in this encounter
--- OUTSIDE RECORDS SUMMARY | 2025-01-19 16:54 | XMS_ITS | Encounter Summary ---
Author Organization [facility] Address [address] [place] [address] Care Team Providers Care Junior High Math Teacher Name Role Phone Unavailable Primary Care Provider Unavailabl e Encounter Details Date Type Department Care Team (Late st Contact Info) Description 01/04/2025 Treatment [facility] [place] [address] [place] [address] Darren Tran MD [address] [place] [address] End stage renal disease; Dependence on renal dialysis Social History Tobacco Use Types Packs/Day Years Used Date Smoking Tobacco: Never Assessed Sex and Gender Information Value Date Recorded Sex Assigned at Not on file Legal Sex Male 7:06 PM EDT Gender Identity Not on file Sexual Orientation Not on file documented as of this encounter Miscellaneous Notes * Dialysis Note - Darren Tran MD - 01/04/2025 12:00 AM CDT Patient: Korey Mackay : 1940 Note Type: Dialysis Rounds-Comp Service Date: 01/04/2025 This patient was personally seen [id number] for a complete visit as part of routine monthly dialysis care for end stage renal disease. Attending Aircraft Body Repairer: DARREN TRAN Dialysis Location: [facility] Schedule: Shift: 2 OVERVIEW COMMENTS: 01/04/25 MD: He remains ill and very limited and has significant chronic pain, but is better than last month and stable on dialysis currently. sitting with him during treatments, rubs his legs and hands and wherever he hurts and this helps. Mirtazepine has helped appetite, eating much better. BP is stable. Wound debrided this week and he continues to follow at wound clinic. 11/28/24 MD: Korey really is not doing very well. He is having severe pain almost all the time. It is keeping him up at night. He has ongoing hematoma over leg, has bled a couple times small degree. is now sitting with him during dialysis, rubbing his joint. She is using diclofenac almost constantly on him and rubbing, can't get him to sleep well at night due to pain. He is depressed. Had conversation again about our limitations given his co-morbidities - he does still tolerate dialysis but is having a hard time making it through treatments due to pain. His cares for himso incredibly well and is very dedicated and does not feel it is her choice to make for him and he does not want to stop dialysis but she is aware (as is he) that he is not likely to survive long and it would be appropriate (and I would support) him stopping dialysis and enrolling in hospice now or any time that he feels comfortable with this and/or if he is not able to complete dialysis anymore due to pain or other reasons. JOSE ALFREDO SUBJECTIVE: FLAT HAMMERER 12/28/24: Spouse at chairside. Pt denies any complaints today. reports pt has been having some difficulties with sleeping but recently started medication to help with depression/sleep. reports pt has been reporting less pruritis over last couple of days. She is managing his wound cares to BLE. Feels it is improving. No complaints or concerns with HD, reviewed labs. FLAT HAMMERER 11/23/24: Seen at chairside, Jagruti also present. Reporting leg pain, has been using topical diclofenac gel, which states has been helping some. No complaints related to HD. Had fistulagram done recently. Reaching edw. asking about Mg level - reviewed most recent on file with . FLAT HAMMERER 10/12/24: Not very interactive today but denies any complaints or concerns. Not reaching edw. 10/03/24 PA: No complaints or concerns, reports tolerating HD well. Denies SOB, CP, cramping or dizziness. Reinforce fluid/ sodium restrictions. FLAT HAMMERER 08/24/2024: Seen on dialysis. Overall doing ok. at chairside. She reports that patient had partial amputation back in May 2024. Foot wound healing has been delayed. He is scheduled to see Vascular next Thursday to decide a plan. She states no infection as of now. Patient has been tolerating sitting in chair for dialysis. Having good effects from CBD products. Still not sleepingas much as he likes. Breathing fine. Arm access functioning well. Continue plan of care. HOME MEDICATIONS Medications reviewed. Current [facility] Medications albuterol sulfate 90 mcg/actuation HFA [...] capsule by mouth once a day. Dialyvite [phone] bo-xe-mzs-mg tablet Take 1 tablet by mouth every evening with meals. floradix [iron and herbs liquid supplement to improve appetite and energy] hydrocortisone 2.5% cream Apply to affected area twice a day as needed. iron 5mg [once a day] Levo-T 175 mcg tablet Take 1 tablet [...] [only 1cap PM dose prior to dialysis] tiotropium bromide 18 mcg capsule, w/inhalation device [...] Unknown DIALYSIS PRESCRIPTION Treatment Data Treatment Date: 01/04/2025 started at: 11:58 AM Dialysate / Machine Temp (prescribed): 37.0*C Dialysate / Machine Temp (actual): 36.8*C BFR (prescribed): 450 BFR (actual): 450 DFR (prescribed): Manual 800 DFR (actual): 800 Prescribed Time: 03:30 EDW (kg): 79.5 Dialyzer: 180NRe Optiflux Dialysate: 2.0 K, 2.5 Ca, 1.0 Mg, 100 Dextrose (G2251) Sodium: 135 Bicarb: 32 Pre Dialysis Vitals Pre BP Sit: 134/66 Pre Wt (kg): 86.1 EDW Deviation (kg): 6.6 Temp: 97.5*F Current Dialysis Vitals BP Sit: 105/50 AP/LEAD SIMULATION MODELING ENGINEER: -- Pulse: 79 TREATMENT MEDICATIONS ORDERS Iron Sucrose (Venofer) 50 mg IVP 1X Week During Dialysis 12/30/2024 - 12/29/2025 BP AND FLUID ASSESSMENT Acceptable blood pressure. Fluid status acceptable. EDW appropriate. COMMENTS: Anishrine for BP support Post BP Sit 123/56 - 01/02/2025 123/63 - 12/30/2024 106/53 - 12/28/2024 Post Wt (kg) 79.5 - 01/02/2025 78.8 - 12/30/2024 79.5 - 12/28/2024 EDW (kg) 79.6 - 01/02/2025 79.6 - 12/30/2024 79.6 - 12/28/2024 Deviation (kg) -0.1 - 01/02/2025 -0.8 - 12/30/2024 -0.1 - 12/28/2024 ADEQUACY ASSESSMENT spKt/V (Daugirdas II) 1.52 (12/07/24) 1.40 (11/09/24) 1.41 (10/14/24) eKdrt/V 1.33 (12/07/24) 1.20 (11/09/24) 1.22 (10/14/24) % Urea Reduction 72 (12/07/24) 70 (11/09/24) 70 (10/14/24) BUN 81 (12/07/24) 79 (11/09/24) 89 (10/14/24) BUN Post Dialysis 23 (12/07/24) 24 (11/09/24) 27 (10/14/24) Creatinine 5.40 (12/07/24) 6.10 (11/09/24) 5.82 (10/12/24) Bicarbonate (CO2) 21 (12/12/24) 23 (11/09/24) 26 (10/12/24) Sodium 128 (12/12/24) 126 (11/09/24) 132 (10/12/24) Target met. Prescription compliance acceptable. Missed Treatments 0 - Last 30 days 0 - Last 60 days ACCESS ASSESSMENT Vascular access examined. AVF/AVG positive thrill/bruit. Current access is permanent and functioning well. 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 He had fistulagram in October 2024 with angioplasty of 2 stenoses AVFistula Standard Left Forearm Active (In Use) - 10/19/2020 Placed - Unknown Access Flow 980 (12/12/24) 1572 (11/21/24) 1682 (11/11/24) ANEMIA ASSESSMENT Hemoglobin 10.2 (12/28/24) 9.7 (12/21/24) 8.9 (12/14/24) Iron Saturation (TSat) 17 (12/12/24) 35 (11/09/24) 34 (10/12/24) Ferritin 1,106 (10/17/24) 873 (09/12/24) 1,620 (07/13/24) Iron 35 (12/12/24) 71 (11/09/24) 66 (10/12/24) TIBC 206 (12/12/24) 205 (11/09/24) 193 (10/12/24) MCV 100 (12/07/24) 88 (11/09/24) 93 (10/12/24) Platelets 186 (12/07/24) 134 (11/09/24) 88 (10/12/24) Anemia targets met. Continue current MISTY dose. BMM ASSESSMENT Calcium 9.7 12/12/24 10.0 11/09/24 9.3 10/12/24 Corrected Calcium 10.1 11/09/24 9.7 10/12/24 9.7 09/12/24 Phosphorus 3.5 12/12/24 3.0 11/09/24 3.7 10/12/24 Calcium Phosphorus Product 34 12/12/24 30 11/09/24 34 10/12/24 PTH 221 10/17/24 189 09/12/24 168 07/13/24 Vitamin D, 25-OH, Total 56.9 04/13/24 Magnesium 2.1 09/12/24 1.7 07/13/24 1.9 04/13/24 Alkaline Phosphatase 104 07/13/24 115 04/13/24 107 01/13/24 Aluminum 8 04/13/24 PTH within target. Phosphorus controlled. Calcium controlled. Bone and mineral metabolism parameters reviewed. NUTRITION ASSESSMENT Albumin 4.0 12/07/24 3.9 11/09/24 3.5 10/12/24 Potassium 4.7 12/12/24 5.0 11/09/24 4.4 10/12/24 eNPCR 1.29 12/07/24 1.17 11/09/24 1.41 10/14/24 Albumin at goal. Potassium controlled. COMMENTS: Albumin now at goal! TRANSPLANT STATUS COMMENT COMMENTS: Patient not a candidate for transplant PHYSICAL EXAM Exam performed. Vital Signs Reviewed. Lungs - Clear. CV - Blood pressure noted. COMMENTS: Trace edema Wearing boot; partial amputation [facility] WBC 6.81 (12/07/24) 6.15 (11/09/24) 5.29 (10/12/24) Hepatitis B Surface Ab 26 (04/13/24) Signed by: DARREN TRAN MD on 01/04/2025 at 03:58:57 PM Transcribed by: DARREN TRAN MD on 01/04/2025 at 03:58:57 PM documented in this encounter Plan of Treatment Not on file documented as of this encounter Visit Diagnoses Diagnosis End stage renal disease Dependence on renal dialysis documented in this encounter
--- OUTSIDE RECORDS SUMMARY | 2025-01-19 16:54 | XMS_ITS | Encounter Summary ---
Author Organization [facility] [place] [place] Address [address] [place] [address] Care Team Providers Care Thresher Broomcorn Name Role Phone Unavailable Primary Care Provider Unavailabl e Encounter Details Date Type Department Care Team (Late st Contact Info) Description 12/07/2024 Orders Only [facility] [address] [facility] [address] [place] [address] Darren Youssef MD [address] [place] [address] Social History Tobacco Use [...] Date/Time Associated Diagnosis Comments HD KINETICS Routine 12/07/2024 POST CHEMISTRY Routine 12/07/2024 IMMUNO CHEMISTRY Routine 12/07/2024 HEMATOLOGY Routine 12/07/2024 CHEMISTRY Routine 12/07/2024 [facility] Routine 12/07/2024 documented in this encounter Results * [facility] Results (12/07/2024) nPCR_HD 1.40 [facility] spKt/V [facility] 1.57 [facility] spKt/V (Daugirdas II) 1.52 [facility] WSTDKT/V 2.4 [facility] eKt/V ([place]) 1.30 [facility] PCR 99.75 [facility] eKdrt/V 1.33 [facility] eNPCR 1.29 [facility] eKt/V Gotch 1.33 [facility] e Lamar 12/07/2024 12/07/2024 [facility] Ordering Provider LAB BLOOD ORDERABLES Final Result Knowledge Center Contact Performing lab Unknown, [place] * (ABNORMAL) HEMATOLOGY (12/07/2024) Neutrophils 73.8 40.0 - 75.0 % [facility] Lymphocytes Relative 8.7(L) 19.0 - 48.0 % [facility] Monocytes 10.3(H) 3.0 - 10.0 % [facility] Eosinophils Relative 2.6 0.0 - 7.0 % [facility] Basophils Relative 0.6 0.0 - 1.5 % [facility] COURTNEY 4.1(H) 0.0 - 4.0 % [facility] WBC 6.81 4.80 - 10.80 1000/mcL [facility] RBC 2.78(L) 4.70 - 6.10 mill/mcL [facility] Hematocrit 27.8(L) 42.0 - 52.0 % [facility] MCV 100 80 - 100 fl [facility] MCH 31.6(H) 27.0 - 31.0 pg [facility] MCHC 31.6 30.0 - 36.0 g/dL [facility] RDW 22.2(H) 11.5 - 14.5 % [facility] Hemoglobin 8.8(L) 14.0 - 18.0 g/dL [facility] Hemoglobin x 3 26.4(L) 42.0 - 54.0 % [facility] Platelets 186 130 - 400 1000/mcL [facility] 12/07/2024 12/08/2024 8:2 6 PM CDT Narrative [facility] - 12/08/2024 Unless otherwise specified, test(s) performed at: [facility], [address] [place] [address], [place] [address] FLAT KNITTER: Rojas Kirkland M.D., Ph.D For any questions, please call customer service at FREQUENCY:MONTHLY Resulting Agency Comment Specimen source: Blood Darren Youssef MD LAB BLOOD ORDERABLES Final Re sult Performing Organization Address [facility] de Phone Number [facility] See order comments or contact performing lab Unknown, [place] * HD KINETICS (12/07/2024) Pathologist [facility] % Urea Reduction 72 65 - 80 % [facility] 12/07/2024 12/08/2024 8:2 8 AM CDT Narrative [facility] - 12/08/2024 Unless otherwise specified, test(s) performed at: [facility], [address] [place] [address], [place] [address] FLAT KNITTER: Rojas Kirkland M.D., Ph.D For any questions, please call customer service at FREQUENCY:MONTHLY Resulting Agency Comment Specimen source: Plasma Darren Youssef MD LAB BLOOD ORDERABLES Final Re access hospital daytont Performing Organization Address [facility] de Phone Number [facility] See order comments or contact performing lab Unknown, [place] * (ABNORMAL) [facility] Chemistry (12/07/2024) Pathologist [facility] BUN 81(H) 6 - 19 mg/dL [facility] Creatinine 5.40(H) 0.60 - 1.30 mg/dL [facility] BUN/Creatinine Ratio 15.0 10.0 - 20.0 [facility] Total Protein 7.5 6.0 - 8.5 g/dL [facility] Albumin 4.0 3.5 - 5.2 g/dL [facility] Globulin, Total 3.5 2.0 - 4.0 g/dL [facility] A/G Ratio 1.1 1.0 - 2.0 [facility] 12/07/2024 12/08/2024 9:2 7 AM CDT Narrative [facility] - 12/08/2024 Unless otherwise specified, test(s) performed at: [facility], [address] [place] [address], [place] [address] FLAT KNITTER: Rojas Kirkland M.D., Ph.D For any questions, please call customer service at FREQUENCY:MONTHLY Resulting Agency Comment Specimen source: Serum Darren Youssef MD LAB BLOOD ORDERABLES Final Re sult Performing Organization Address [facility] de Phone Number [id number] See order comments or contact performing lab Unknown, [place] * IMMUNO CHEMISTRY (12/07/2024) Hep B Surface Ag Negative Negative [facility] Hepatitis C Antibody Nonreactive Nonreactive [facility] Comment: No HCV antibody detected. The above test result was obtained using [employer] IM chemiluminescent method. Results obtained with different assay methods or kits cannot be used interchangeably. S/CO Ratio <0.02 0.00 - 0.79 [facility] Comment: s/co ratio Interpretation Supplemental testing <0.80 Nonreactive No further testing required. 0.80-0.99 Equivocal HCV RNA Quantitative Real-Time PCR is recommended. 1.00->11.00 Reactive HCV RNA Quantitative Real-Time PCR is recommended to distinguish active from resolved cases. 12/07/2024 12/08/2024 9:4 1 AM CDT Narrative [facility] - 12/08/2024 Unless otherwise specified, test(s) performed at: [facility], [address] [place] [address], [place] [address] FLAT KNITTER: Rojas Kirkland M.D., Ph.D For any questions, please call customer service at FREQUENCY:MONTHLY Resulting Agency Comment Specimen source: Plasma Darren Youssef MD LAB BLOOD ORDERABLES Final Re sult Performing Organization Address [facility] de Phone Number [facility] See order comments or contact performing lab Unknown, [place] * (ABNORMAL) POST CHEMISTRY (12/07/2024) Pathologist [facility] BUN Post Dialysis 23(H) 6 - 19 mg/dL [facility] 12/07/2024 12/08/2024 8:2 8 AM CDT Narrative [facility] - 12/08/2024 Unless otherwise specified, test(s) performed at: [facility], [address] [place] [address], [place] [address] FLAT KNITTER: Rojas Kirkland M.D., Ph.D For any questions, please call customer service at FREQUENCY:MONTHLY Resulting Agency Comment Specimen source: Plasma us Darren Youssef MD LAB BLOOD ORDERABLES Final Re sult [facility] [employer] See order comments or contact performing lab Unknown, [place] documented in this encounter Visit Diagnoses Not on filedocumented in this encounter
--- OUTSIDE RECORDS SUMMARY | 2025-01-19 16:54 | XMS_ITS | Encounter Summary ---
Author Organization [facility] [place] [place] Address [address] [facility] [facility] [address] [place] [address] Care Team Providers Care Plant Breeder Name Role Phone Unavailable Primary Care Provider Unavailabl e Encounter Details Date Type Department Care Team (Late st Contact Info) Description 12/14/2024 Orders Only [facility] [place] [address] [facility] [address] [place] [address] Darren Youssef MD [address] [place] [address] Social History Tobacco Use Types [...] Priority Date/Time Associated Diagnosis Comments HEMATOLOGY Routine 12/14/2024 documented in this encounter Results * (ABNORMAL) HEMATOLOGY (12/14/2024) Hemoglobin 8.9(L) 14.0 - 18.0 g/dL [facility] Hemoglobin x 3 26.7(L) 42.0 - 54.0 % [facility] 12/14/2024 12/15/2024 6:0 8 AM CDT Narrative [facility] - 12/15/2024 Unless otherwise specified, test(s) performed at: [facility], [address] [place] [address], [place] [address] ROAD MAKER: Rojas Kirkland M.D., Ph.D For any questions, please call customer service at FREQUENCY:OTHER Resulting Agency Comment Specimen source: Blood us Darren Youssef MD LAB BLOOD ORDERABLES Final Re sult [facility] See order comments or contact performing lab Unknown, [place] documented in this encounter Visit Diagnoses Not on filedocumented in this encounter
--- OUTSIDE RECORDS SUMMARY | 2025-01-19 16:54 | XMS_ITS | Encounter Summary ---
Author Organization [facility] [place] [place] Address [address] [place] [address] Care Team Providers Care Hris Developer Name Role Phone Unavailable Primary Care Provider Unavailabl e Encounter Details Date Type Department Care Team (Late st Contact Info) Description 06/20/2024 TCM in Dialysis Clinic [facility] [place] [address] [place] [address] Darren Youssef MD [address] [place] [address] Social History Tobacco Use Types [...] 06/20/2024 The patient was seen for a [id number] visit as part of Transitional Care Management services. Attending Research And Development Engineer: DARREN YOUSSEF Dialysis Location: [facility] Schedule: Shift: 2 INTERACTIVE CONTACT [...] medication orders reviewed - no changes. Current [facility] Medications albuterol sulfate 90 mcg/actuation HFA [...] capsule by mouth once a day. Dialyvite [phone] ez-vt-jdl-mg tablet Take 1 tablet by mouth every [...] 97.4*F Current Dialysis Vitals BP Sit: 151/69 AP/AGRICULTURAL EXTENSION SPECIALIST: -160/220 Pulse: 69 CARE COORDINATION Post-discharge follow-up appointments reviewed with the patient. EDUCATION Education relevant to the discharge diagnosis provided to the patient or caregiver IMPRESSION & PLAN COMMENTS: Stable after hospital stay s/p partial amputation of toe Lower EDW Lung mass vs inflammatory change, repeat CT 2 months by PCP suggested. PCP post- discharge visit completed VISIT DIAGNOSES CPT Code 88775 - High complexity, seen 8-14 days post discharge or moderate complexity, seen [id number] days of discharge. N18.6 End stage renal [...]
--- OUTSIDE RECORDS SUMMARY | 2025-01-19 16:54 | XMS_ITS | Encounter Summary ---
Author Organization [facility] [place] Address [address] [facility] [address] [place] [address] Care Team Providers Care Commercial Attorney Name Role Phone Unavailable Primary Care Provider Unavailabl e Encounter Details Date Type Department Care Team (Late st Contact Info) Description 12/12/2024 Orders Only [facility] [place] [address] [facility] [address] [place] [address] Darren Youssef MD [address] [place] [address] Social History Tobacco Use Types [...] Procedure Name Priority Date/Time Associated Diagnosis Comments CHEMISTRY Routine 12/12/2024 documented in this encounter Results * (ABNORMAL) [facility] (12/12/2024) Sodium 128(L) 136 - 145 mEq/L [facility] Potassium 4.7 3.5 - 5.1 mEq/L [facility] Chloride 91(L) 96 - 108 mEq/L [facility] Bicarbonate (CO2) 21 20 - 31 mEq/L [facility] Calcium 9.7 8.7 - 10.4 mg/dL [facility] Comment: Please note change in reference range. Phosphorus 3.5 2.6 - 4.5 mg/dL [facility] Calcium Phosphorus Product 34 0 - 54 [facility] Iron 35(L) 45 - 160 mcg/dL [facility] UIBC 171 155 - 355 mcg/dL [facility] TIBC 206 185 - 515 mcg/dL [facility] Iron Saturation (TSat) 17(L) 20 - 55 % [facility] 12/12/2024 12/13/2024 3:2 7 AM CDT Narrative [facility] - 12/13/2024 Unless otherwise specified, test(s) performed at: [facility], [address] [place] [address], [place] [address] GUEST SERVICES AMBASSADOR: Rojas Kirkland M.D., Ph.D For any questions, please call customer service at FREQUENCY:OTHER Resulting Agency Comment Specimen source: Serum us Darren Youssef MD LAB BLOOD ORDERABLES Final Re sult [facility] See order comments or contact performing lab Unknown, [place] documented in this encounter Visit Diagnoses Not on filedocumented in this encounter
--- OUTSIDE RECORDS SUMMARY | 2025-01-19 16:54 | XMS_ITS | Encounter Summary ---
Author Organization [facility] Address [address] [place] [address] Care Team Providers Care Trim Installer Name Role Phone Unavailable Primary Care Provider Unavailabl e Encounter Details Date Type Department Care Team (Late st Contact Info) Description 01/11/2025 Treatment [facility] [address] [place] [address] Darren Tran MD [address] [place] [address] End stage renal disease; Dependence on renal dialysis Social History Tobacco Use Types Packs/Day Years Used Date Smoking Tobacco: Never Assessed Sex and Gender Information Value Date Recorded Sex Assigned at Not on file Legal Sex Male 7:06 PM EDT Gender Identity Not on file Sexual Orientation Not on file documented as of this encounter Miscellaneous Notes * Dialysis Note - Darrne Tran MD - 01/11/2025 12:00 AM CDT Patient: Korey Mackay : 1940 Note Type: Dialysis Rounds-Comp Service Date: 01/11/2025 This patient was personally seen [id number] for a complete visit as part of routine monthly dialysis care for end stage renal disease. Attending Vice President Global Advertising Sales: DARREN TRAN Dialysis Location: [facility] Schedule: Shift: 2 OVERVIEW COMMENTS: 01/11/25 MD: He is more sleepy the last several days per . Where they did debridement over his L foot, it is a little more swollen and red on the foot, follows with wound care, not on abx at this time. recognizes that dialysis is taking more and more out of him, harder to recover and is quite fatigued much of the time and spending less time awake during the day. She feels like it may be relatively close to the end of his time, but he has not wanted to stop going to the hospital, appts, or dialysis at this time. They know which hospice agency they will use when needed. 01/04/25 MD: He remains ill and very [...] pain or other reasons. JOSE ALFREDO SUBJECTIVE: RAILROADER 12/28/24: Spouse at chairside. Pt denies any complaints today. reports pt has been having some difficulties with sleeping but recently started medication to help with depression/sleep. reports pt has been reporting less pruritis over last couple of days. She is managing his wound cares to BLE. Feels it is improving. No complaints or concerns with HD, reviewed labs. RAILROADER 11/23/24: Seen at chairside, Jagruti also present. Reporting leg pain, has been using topical diclofenac gel, which states has been helping some. No complaints related to HD. Had fistulagram done recently. Reaching edw. asking about Mg level - reviewed most recent on file with . RAILROADER 10/12/24: Not very interactive today but denies any complaints or concerns. Not reaching edw. 10/03/24 PA: No complaints or concerns, reports tolerating HD well. Denies SOB, CP, cramping or dizziness. Reinforce fluid/ sodium restrictions. RAILROADER 08/24/2024: Seen on dialysis. Overall doing ok. [...] of care. HOME MEDICATIONS Medications reviewed. Current [facility]patient Medications albuterol sulfate 90 mcg/actuation HFA [...] capsule by mouth once a day. Dialyvite [phone] zt-me-hww-mg tablet Take 1 tablet by mouth every [...] Unknown DIALYSIS PRESCRIPTION Treatment Data Treatment Date: 01/11/2025 started at: 11:41 AM Dialysate / Machine Temp (prescribed): 37.0*C Dialysate / Machine Temp (actual): 36.9*C BFR (prescribed): 450 BFR (actual): 475 DFR (prescribed): Manual 800 DFR (actual): 800 Prescribed Time: 03:30 EDW (kg): 78.5 Dialyzer: 180NRe Optif[employer] Dialysate: 2.0 K, 2.5 Ca, 1.0 Mg, 100 Dextrose (G2251) Sodium: 135 Bicarb: 32 Pre Dialysis Vitals Pre BP Sit: 136/63 Pre Wt (kg): 80.4 EDW Deviation (kg): 1.9 Temp: 98.0*F Current Dialysis Vitals BP Sit: 129/57 AP/BUTCHER FISH: 206/234 Pulse: 73 TREATMENT MEDICATIONS ORDERS Iron Sucrose (Venofer) 50 mg IVP 1X Week During Dialysis 12/30/2024 - 12/29/2025 Mircera 200 mcg IVP Every 2 weeks During Dialysis 01/04/2025 - 01/03/2026 BP AND FLUID ASSESSMENT Acceptable blood pressure. Fluid status acceptable. EDW appropriate. COMMENTS: Midodrine for BP support Post BP Sit 123/60 - 01/09/2025 117/48 - 01/06/2025 116/45 - 01/04/2025 Post Wt (kg) 78.8 - 01/09/2025 78.5 - 01/06/2025 83.0 - 01/04/2025 EDW (kg) 78.5 - 01/09/2025 79.5 - 01/06/2025 79.5 - 01/04/2025 Deviation (kg) 0.3 - 01/09/2025 -1.0 - 01/06/2025 3.5 - 01/04/2025 ADEQUACY ASSESSMENT spKt/V (Daugirdas II) 1.52 (12/07/24) [...] - 10/19/2020 Placed - Unknown Access Flow 768 (01/09/25) 980 (12/12/24) 1572 (11/21/24) [facility] ASSESSMENT Hemoglobin 10.7 (01/04/25) 10.2 (12/28/24) 9.7 (12/21/24) Iron Saturation (TSat) 17 (12/12/24) 35 (11/09/24) [...] 1.41 10/14/24 Albumin at goal. Potassium controlled. TRANSPLANT STATUS COMMENT COMMENTS: Patient not a candidate for transplant PHYSICAL EXAM Exam performed. Vital Signs Reviewed. Lungs - Clear. CV - Blood pressure noted. CV - RRR. COMMENTS: Trace edema stable Wearing boot; partial amputation [facility] WBC 6.81 (12/07/24) 6.15 (11/09/24) 5.29 (10/12/24) Hepatitis B Surface Ab 26 (04/13/24) ADDITIONAL COMMENT COMMENTS: Monitor closely. Frail and likely nearing end of life. Hospice agency identified when time by who continues to support him. He continues to want to do dialysis at this time. Signed by: DARREN TRAN MD on 01/11/2025 at 01:07:50 PM Transcribed by: DARREN TRAN MD on 01/11/2025 at 01:07:50 PM documented in this encounter Plan of Treatment Not on file documented as of this encounter Visit Diagnoses Diagnosis End stage renal disease Dependence on renal dialysis documented in this encounter
--- OUTSIDE RECORDS SUMMARY | 2025-01-19 16:54 | XMS_ITS | Encounter Summary ---
Author Organization [facility] Address [address] [facility] [facility] [address] [place] [address] Care Team Providers Care Correspondence School Teacher Name Role Phone Unavailable Primary Care Provider Unavailabl e Encounter Details Date Type Department Care Team (Late st Contact Info) Description 12/28/2024 Orders Only [facility] [place] [address] [facility] [address] [place] [address] Darren Youssef MD [address] [place] [address] Social History Tobacco Use Types [...] Priority Date/Time Associated Diagnosis Comments HEMATOLOGY Routine 12/28/2024 documented in this encounter Results * (ABNORMAL) HEMATOLOGY (12/28/2024) Hemoglobin 10.2(L) 14.0 - 18.0 g/dL [facility] Hemoglobin x 3 30.6(L) 42.0 - 54.0 % [facility] 12/28/2024 12/29/2024 11: 37 AM CDT Narrative [facility] - 12/29/2024 Unless otherwise specified, test(s) performed at: [facility], [address] [place] [address], [place] [address] BEHAVIORAL THERAPIST: Rojas Kirkland M.D., Ph.D For any questions, please call customer service at FREQUENCY:OTHER Resulting Agency Comment Specimen source: Blood us Darren Youssef MD LAB BLOOD ORDERABLES Final Re sult [facility] See order comments or contact performing lab Unknown, [place] documented in this encounter Visit Diagnoses Not on filedocumented in this encounter
--- OUTSIDE RECORDS SUMMARY | 2025-01-19 16:54 | XMS_ITS | Encounter Summary ---
Author Organization [facility] [place] Address [address] [facility] [address] [place] [address] Care Team Providers Care Cable Splicer Name Role Phone Unavailable Primary Care Provider Unavailabl e Encounter Details Date Type Department Care Team (Late st Contact Info) Description 12/21/2024 Orders Only [facility] [place] [address] [facility] [address] [place] [address] Darren Youssef MD [address] [place] [address] Social History Tobacco Use Types [...] Priority Date/Time Associated Diagnosis Comments HEMATOLOGY Routine 12/21/2024 documented in this encounter Results * (ABNORMAL) HEMATOLOGY (12/21/2024) Hemoglobin 9.7(L) 14.0 - 18.0 g/dL [facility] Hemoglobin x 3 29.1(L) 42.0 - 54.0 % [facility] 12/21/2024 12/22/2024 8:2 3 AM CDT Narrative [facility] - 12/22/2024 Unless otherwise specified, test(s) performed at: [facility], [address] [place] [address], [place] [address] UNINDENTURED APPRENTICE: Rojas Kirkland M.D., Ph.D For any questions, please call customer service at FREQUENCY:OTHER Resulting Agency Comment Specimen source: Blood us Darren Youssef MD LAB BLOOD ORDERABLES Final Re sult [facility] See order comments or contact performing lab Unknown, [place] documented in this encounter Visit Diagnoses Not on filedocumented in this encounter
--- OUTSIDE RECORDS SUMMARY | 2025-01-19 16:54 | XMS_ITS | Encounter Summary ---
Author Organization [facility] Address [address] [place] [address] Care Team Providers Care Veneer Taping Machine Offbearer Name Role Phone Unavailable Primary Care Provider Unavailabl e Encounter Details Date Type Department Care Team (Late st Contact Info) Description 12/28/2024 Treatment [facility] [address] [place] [address] Tacho Hicks APRN-CNP [address] [place] [address] End stage renal disease; Dependence on renal dialysis Social History Tobacco Use Types Packs/Day Years Used Date Smoking Tobacco: Never Assessed Sex and Gender Information Value Date Recorded Sex Assigned at Not on file Legal Sex Male 7:06 PM EDT Gender Identity Not on file Sexual Orientation Not on file documented as of this encounter Miscellaneous Notes * Dialysis Note - Tacho Hicks APRN-CNP - 12/28/2024 12:00 AM CDT Patient: Korey Mackay : 1940 Note Type: Dialysis Rounds-Comp Service Date: 12/28/2024 This patient was personally seen for a complete visit as part of routine monthly dialysis care for end stage renal disease. Attending Rubber Mill Operator: ANA TRAN Dialysis Location: [facility] Schedule: Shift: 2 OVERVIEW COMMENTS: 11/28/24 MD: Korey really is not doing [...] treatments due to pain. His cares for him so incredibly well and is very dedicated and [...] pain or other reasons. JOSE ALFREDO SUBJECTIVE: SINGE MACHINE OPERATOR 12/28/24: Spouse at chairside. Pt denies any complaints today. reports pt has been having some difficulties with sleeping but recently started medication to help with depression/sleep. reports pt has been reporting less pruritis over last couple of days. She is managing his wound cares to BLE. Feels it is improving. No complaints or concerns with HD, reviewed labs. SINGE MACHINE OPERATOR 11/23/24: Seen at chairside, Jagruti also present. Reporting leg pain, has been using topical diclofenac gel, which states has been helping some. No complaints related to HD. Had fistulagram done recently. Reaching edw. asking about Mg level - reviewed most recent on file with . SINGE MACHINE OPERATOR 10/12/24: Not very interactive today but denies any complaints or concerns. Not reaching edw. 10/03/24 PA: No complaints or concerns, reports tolerating HD well. Denies SOB, CP, cramping or dizziness. Reinforce fluid/ sodium restrictions. SINGE MACHINE OPERATOR 08/24/2024: Seen on dialysis. Overall doing ok. at chairside. She reports that patient had partial amputation back in May 2024. Foot wound healing has been delayed. He is scheduled to see Vascular next Shanti to decide a plan. She states no infection as of now. Patient has been tolerating sitting in chair for dialysis. Having good effects from CBD products. Still not sleepingas much as he likes. Breathing fine. Arm access functioning well. Continue plan of care. HOME MEDICATIONS [facility] Outpatient Medications albuterol sulfate 90 mcg/actuation [...] capsule by mouth once a day. Dialyvite [phone] tx-rj-kap-mg tablet Take 1 tablet by mouth every [...] subcutaneously three times a day with meals. pravastatin 80 mg tablet Take 1 tablet [...] Unknown DIALYSIS PRESCRIPTION Treatment Data Treatment Date: 12/28/2024 started at: 11:34 AM Dialysate / Machine Temp (prescribed): 37.0*C Dialysate / Machine Temp (actual): 37.0*C BFR (prescribed): 450 BFR (actual): 450 DFR (prescribed): Manual 800 DFR (actual): 800 Prescribed Time: 03:30 EDW (kg): 79.6 Dialyzer: 180NRe Optiflux Dialysate: 2.0 K, 2.5 Ca, 1.0 Mg, 100 Dextrose (G2251) Sodium: 135 Bicarb: 32 Pre Dialysis Vitals Pre BP Sit: 120/56 Pre Wt (kg): 82.9 EDW Deviation (kg): 3.3 Temp: 98.0*F Current Dialysis Vitals BP Sit: 102/55 AP/DIRECTOR TRANSITION: -220/220 Pulse: 73 TREATMENT MEDICATIONS ORDERS Iron Sucrose (Venofer) 100 mg IVP 3X Week During Dialysis 12/19/2024 - 12/28/2024 Mircera 225 mcg IVP Every 2 weeks During Dialysis 12/19/2024 - 12/18/2025 BP AND FLUID ASSESSMENT High weight gain. EDW appropriate. Fluid status and diet discussed with patient. COMMENTS: Cindy for BP support Post BP Sit 99/43 - 12/26/2024 120/57 - 12/23/2024 95/42 - 12/21/2024 Post Wt (kg) 80.1 - 12/26/2024 79.3 - 12/23/2024 80.5 - 12/21/2024 EDW (kg) 79.6 - 12/26/2024 79.6 - 12/23/2024 79.6 - 12/21/2024 Deviation (kg) 0.5 - 12/26/2024 -0.3 - 12/23/2024 0.9 - 12/21/2024 ADEQUACY ASSESSMENT spKt/V (Daugirdas II) 1.52 (7/2/25) 1.40 (11/09/24) 1.41 (10/14/24) eKdrt/V 1.33 (12/07/24) [...] 60 days ACCESS ASSESSMENT Vascular access examined. 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 He had fistulagram in October with angioplasty of 2 stenoses AVFistula Standard Left Forearm Active (In Use) - 10/19/2020 Placed - Unknown Access Flow 980 (12/12/24) 1572 (11/21/24) 1682 (11/11/24) ANEMIA ASSESSMENT Hemoglobin 9.7 (12/21/24) 8.9 (12/14/24) 8.8 (12/07/24) Iron Saturation (TSat) 17 (12/12/24) 35 (11/09/24) 34 (10/12/24) Ferritin 1,106 (10/17/24) 873 (09/12/24) 1,620 (07/13/24) Iron 35 (12/12/24) 71 (11/09/24) 66 (10/12/24) TIBC 206 (12/12/24) 205 (11/09/24) 193 (10/12/24) MCV 100 (12/07/24) 88 (11/09/24) 93 (10/12/24) Platelets 186 (12/07/24) 134 (11/09/24) 88 (10/12/24) Anemia targets not met. Hemoglobin not at target. MISTY adjusted per protocol. Iron adjusted per protocol. BMM ASSESSMENT Calcium 9.7 12/12/24 10.0 11/09/24 [...] controlled. Bone and mineral metabolism parameters reviewed. COMMENTS: No calcitriol NUTRITION ASSESSMENT Albumin 4.0 12/07/24 3.9 11/09/24 3.5 10/12/24 Potassium 4.7 12/12/24 5.0 11/09/24 4.4 10/12/24 eNPCR 1.29 12/07/24 1.17 11/09/24 1.41 10/14/24 Albumin at goal. Potassium controlled. COMMENTS: Alb very near goal TRANSPLANT STATUS COMMENT COMMENTS: Patient not a candidate for transplant PHYSICAL EXAM Exam performed. Vital Signs Reviewed. Lungs - Clear. CV - Blood pressure noted. CV - RRR. COMMENTS: Trace edema Wearing boot; partial amputation [facility] [place] VISIT DIAGNOSES Z99.2 Dependence on renal dialysis N18.6 End stage renal disease ADDITIONAL LABS WBC 6.81 (12/07/24) 6.15 (11/09/24) 5.29 (10/12/24) Hepatitis B Surface Ab 26 (04/13/24) Signed by: TACHO HICKS APRN-CNP on 12/28/2024 at 12:32:07 PM Transcribed by: TACHO HICKS APRN-CNP on 12/28/2024 at 12:32:06 PM documented in this encounter Plan of Treatment Not on file documented as of this encounter Visit Diagnoses Diagnosis End stage renal disease Dependence on renal dialysis documented in this encounter
--- OUTSIDE RECORDS SUMMARY | 2025-01-19 16:55 | XMS_ITS ---
Author Organization [facility] Care Team Providers Care Cosmetician Name Role Phone Sundeep John Unavailable Unavailable Allergies and adverse reactions Code CodeSystem Substance Reaction Severity StartDate Concern Status 7646 RXNORM Omeprazole Unknown 02/14/2021 active 6915 RXNORM Metoclopramide Unknown 02/14/2021 active 39384 RXNORM Lisinopril Unknown 02/14/2021 active Lipitor Unknown 02/14/2021 active Care Team Name Role Address Phone Organization Dates Sundeep John PCP [address] [facility] [address], [place], [address], [place] (Office): : [facility] 02/14/2021 - 02/28/2021 Immunizations Immunization Status Vaccine Details Vaccine Code CodeSystem Date Notes TB 2 Step Mantoux Skin Test completed tuberculin skin test; unspecified formulation lotNumber: [id number] expiry: 02/27/2022 Mfg: Per parmaceutical Given 0.1 ml Right Forearm intradermally Step 2 of Multi-step with next step required 98 CVX created date: 02/27/2021 consent date: 02/27/2021 administer ed date: 02/25/2021 Educated by [email or web address] on 02/27/2021 TB 2 Step Mantoux Skin Test completed tuberculin skin test; unspecified formulation lotNumber: [id number] expiry: 03/07/2022 Mfg: PAR pharmaceutical Given 0.1 [...] CodeSystem Concern Status 1 COVID-19 02/15/[address] active 2 END STAGE RENAL DISEASE 02/15/[address] active 3 OBESITY, UNSPECIFIED 02/15/[address] active 4 PNEUMONIA DUE TO CORONAVIRUS DISEASE 2019 02/15/[id number] active 5 TYPE 2 DIABETES MELLITUS WITH DIABETIC NEUROPATHY, UNSPECIFIED 02/15/[address] active 6 UNSTEADINESS ON FEET 02/15/[address] active 7 MUSCLE WEAKNESS (GENERALIZED) 02/08/[address] active 8 NEED FOR ASSISTANCE WITH PERSONAL CARE 02/08/[id number] active Reason for Referral No Reasons for Referral Entered Social History Social History Observation Description Start Date End Date Code Code System Current Smoking Status Tobacco smoking consumption unknown 366249762 SNOMED CT Sex Assigned At Male 1940 50085-6 [facility] Gender Identity Vital Signs Code Code System Vitals Name Values and Units Timing Information 8310-5 [facility] Body Temperature Value=98.0 Units= F 02/28/2021 10925-6 [facility] O2 % BldC Oximetry Value=96.0 Units= % 02/28/2021 2339-0 [facility] Blood Sugar Value=98.0 Units=mg/dL 02/28/2021 9279-1 [facility] Respiratory Rate Value=18.0 Units=/m in 02/27/2021 8462-4 [facility] Blood Pressure-Diastolic Value=54 Un its=mmHg 02/27/2021 8480-6 [facility] Blood Pressure-Systolic Myslc=883 Un its=mmHg 02/27/2021 8867-4 [facility] Heart rate Value=70.0 Units=/min 11184-6 [facility] Pain Level Value=0.0 02/27/2021 32954-2 [facility] Weight Hhkcq=870.7 Units=Lbs
--- OUTSIDE RECORDS SUMMARY | 2025-01-19 16:55 | XMS_ITS ---
Author Name [facility] Address [address] [place] [address] Phone [phone] Organization [facility] e, NA DOCUMENT DISCLAIMER Multiple document versions may exist, please be sure you review the latest version. The information in the [facility] Continuity of [...] 15, 2023 Atherosclerotic heart diseas e of [place] coronary artery without angina pectoris I25.10 Active [...] October 10, 2024 October 09, 2025 Active Iron Sucrose (Venofer) During Dialysis, 1X Week 50 mg Intravenous - push December 30, 2024 December 29, 2025 Active Iron Sucrose (Venofer) During Dialysis, 3X Week 100 mg Intravenous - push December 19, 2024 December 28, 2024 Discontinued Mircera During Dialysis, Every 2 weeks 200 mcg Intravenous - push January 04, 2025 January 03, 2026 Discontinued Mircera During Dialysis, Every 2 weeks 225 mcg Intravenous - push December 19, 2024 December 18, 2025 Discontinued Home Medications Medication Instructions Dosage [...] capsule ORAL January 07, 2023 Active Dialyvite [id number] oz-ml-tqw-mg Take by mouth every evening with meals [...] Sign Value Date / Time Blood Pressure-sitting 108/55 mmHg January 11:42 AM Heart Rate 69 beats per minute January 18 025 11:42 AM Respiratory Rate 15 breaths per minute January 11:42 AM Temperature 97.7 deg. F January 18, 2025 11:42 AM Weight Vital Sign Value Date / Time Estimated Dry Weight 77.5 kg January 16, 2025 11:59 PM Pre-Dialysis 79.20 kg January 18, 2025 11:42 AM Post-Dialysis 77.80 kg January 18, 2025 11:42 AM Other Other Value Date / Time Height 183 cm October 02, 2023 1 2:00 AM Body Mass Index 23.14 kg/m2 January 16, 2025 05:30 PM [facility] LAB RESULTS Hematology Result Type Result Value Relevant Referen ce Range Interpretation Date WBC (No Diff) 4.89 1000/mcL 4.80 - [...] - 55 % Low August 10, 2024 Transferrin Sat. (Calc) 19 % 20 - 55 % Low September 12, 2024 Ferritin 873 ng/mL 22 - 322 ng/mL High September 12, 2024 Neutrophils 80.3 % 40.0 - 75.0 % High September 12, 2024 WBC (No Diff) 7.94 1000/mcL 4.80 - 10.80 1000/mcL - September 12, 2024 TIBC 180 mcg/dL 185 - 515 mcg/dL Low September UIBC (Calc) 146 mcg/dL 155 - 355 mcg/dL Low September Platelets 170 1000/mcL 130 - 400 1000/mcL - Apri l 2024 Transferrin Sat. (Calc) 34 % 20 - 55 % - October 12, 2024 TIBC 193 mcg/dL 185 - 515 mcg/dL - October 12, 2024 WBC (No Diff) 5.29 1000/mcL 4.80 - 10.80 1000/mcL - October 12, 2024 Neutrophils 70.2 % 40.0 - 75.0 % - October 12 UIBC (Calc) 127 mcg/dL 155 - 355 mcg/dL Low October 12, 2024 Platelets 88 1000/mcL 130 - 400 1000/mcL Low October Ferritin 1106 ng/mL 22 - 322 ng/mL High October 17 25 Hemoglobin x 3 30.0 % 42.0 - [...] % 40.0 - 75.0 % High November 09, 025 Monocytes 7.6 % 3.0 - 10.0 % - November 09 Eosinophil 2.2 % 0.0 - 7.0 % - November 09, 2024 Lymphocytes 8.8 % 19.0 - 48.0 % Low November 09 WBC (No Diff) 6.15 1000/mcL 4.80 - 10.80 1000/mcL - November 09, 2024 Basophils 0.3 % 0.0 - 1.5 % - November 09, 2024 COURTNEY 5.0 % 0.0 - 4.0 % High November 09, 2024 MCH 29.3 pg 27.0 - 31.0 pg - November 09 Hemoglobin x 3 28.5 % 42.0 - 54.0 % Low November MCHC 33.3 g/dL 30.0 - 36.0 g/dL - November 09, 2024 RDW 19.0 % 11.5 - 14.5 % High November 09 Platelets 134 1000/mcL 130 - 400 1000/mcL - November 09, 2024 Hemoglobin x 3 24.6 % 42.0 - 54.0 % Low November Hemoglobin x 3 27.6 % 42.0 - 54.0 % Low November Hemoglobin x 3 26.4 % 42.0 - 54.0 % Low November Platelets 186 1000/mcL 130 - 400 1000/mcL - December 07, 2024 Hemoglobin x 3 26.4 % 42.0 - 54.0 % Low December Neutrophils 73.8 % 40.0 - 75.0 % [...] - 1.5 % - December 07, 2024 WBC (No Diff) 6.81 1000/mcL 4.80 - 10.80 1000/mcL - December 07, 2024 Transferrin Sat. (Calc) 17 % 20 - 55 % Low December 12, 2024 Iron 35 mcg/dL 45 - 160 mcg/dL Low December 12, 2024 TIBC 206 mcg/dL 185 - 515 mcg/dL - December 12, 2024 UIBC (Calc) 171 mcg/dL 155 - 355 mcg/dL - December Hemoglobin x 3 26.7 % 42.0 - 54.0 % Low December HGB 9.7 g/dL 14.0 - 18.0 g/dL Low December 21, 2024 Hemoglobin x 3 29.1 % 42.0 - 54.0 % December HGB 10.2 g/dL 14.0 - 18.0 g/dL Low December 28, 2024 Hemoglobin x 3 30.6 % 42.0 - 54.0 % Low December Hemoglobin x 3 32.1 % 42.0 - 54.0 % Low December HGB 10.7 g/dL 14.0 - 18.0 g/dL Low January 04, 2025 UIBC (Calc) 134 mcg/dL 155 - 355 mcg/dL Low January 11, 2025 TIBC 164 mcg/dL 185 - 515 mcg/dL Low January Transferrin Sat. (Calc) 18 % 20 - 55 % Low January 11, 2025 Iron 30 mcg/dL 45 - 160 mcg/dL Low January Basophils 0.5 % 0.0 - 1.5 % - January 11 25 COURTNEY 1.7 % 0.0 - 4.0 % - January 11 25 Monocytes 7.5 % 3.0 - 10.0 % - January 11, 025 Eosinophil 2.3 % 0.0 - 7.0 % - January 11 Neutrophils 83.6 % 40.0 - 75.0 % High January 11, 2025 Lymphocytes 4.4 % 19.0 - 48.0 % Low January 11, 2025 WBC (No Diff) 10.47 1000/mcL 4.80 - 10.80 1000/mcL - January 11, 2025 RBC 3.61 mill/mcL 4.70 - 6.10 mill/mcL Low January 11, 2025 Hemoglobin x 3 33.9 % 42.0 - 54.0 % Low January 11, 2025 Platelets 204 1000/mcL 130 - 400 1000/mcL - Augu st 2024 RDW 18.0 % 11.5 - 14.5 % High January 11, 2025 HGB 11.3 g/dL 14.0 - 18.0 g/dL Low January MCH 31.3 pg 27.0 - 31.0 pg High January 11, 2025 MCHC 31.0 g/dL 30.0 - 36.0 g/dL - January HCT 36.4 % 42.0 - 52.0 % Low January 11, 2025 Ferritin 1306 ng/mL 22 - 322 ng/mL High January 11, 2025 Metabolic/Renal Result Type Result Value Relevant Referen ce Range Interpretation Date Chloride 88 mEq/L 96 - 108 mEq/L Low November 09 Bicarbonate 23 mEq/L 20 - 31 mEq/L [...] 6 - 19 mg/dL High December 07 Sodium 128 mEq/L 136 - 145 mEq/L Low December 12, 2024 Chloride 91 mEq/L 96 - 108 mEq/L Low December 12 Potassium 4.7 mEq/L 3.5 - 5.1 mEq/L - December 12, 2024 Bicarbonate 21 mEq/L 20 - 31 mEq/L - December 12 BUN, Post 20 mg/dL 6 - 19 mg/dL High January 11 BUN 70 mg/dL 6 - 19 mg/dL High January 11 Creatinine, Serum 6.05 mg/dL 0.60 - 1.30 mg/dL High January 11, 2025 Bicarbonate 26 mEq/L 20 - 31 mEq/L - January 11, 2025 BUN/Creat Ratio 11.6 10.0 - 20.0 - January Sodium 132 mEq/L 136 - 145 mEq/L Low January Potassium 3.7 mEq/L 3.5 - 5.1 mEq/L - January Chloride 92 mEq/L 96 - 108 mEq/L Low January 11, 2025 URR, Calc 71 % 65 - 80 % - January 11 HD Adequacy Result Type Result Value Relevant Referen ce Range Interpretation Date Krt/V 0.00 No Reference Ran ge Provided - August 12, 2024 Krt/V 0.00 No Reference Ran ge Provided - August 26, 2024 Krt/V 0.00 No Reference Ran ge Provided - October 14, 2024 wstdKt/V 2.3 No Reference Ran ge Provided - November 09, 2024 wstdKt/V, residual 0.0 No Reference Range Provided - November 09, 2024 eKt/V ([place]) 1.20 No Reference Range Provided - November 09, 2024 spKt/V Gotch 1.41 No Reference Ran ge Provided - November 09, 2024 Krt/V 0.00 No Reference Ran ge Provided - November 09, 2024 wstdKt/V without residual 2.3 No Reference Range Provided - November 09, 2024 spKt/V (Daugirdas II) 1.40 No Reference Range Provided - November 09, 2024 wstdKt/V 2.4 No Reference Ran ge Provided - December 07, 2024 spKt/V Gotch 1.57 No Reference Ran ge Provided - December 07, 2024 eKt/V ([place]) 1.30 No Reference Range Provided - December 07, 2024 wstdKt/V, residual 0.0 No Reference Range Provided - December 07, 2024 spKt/V (Daugirdas II) 1.52 No Reference Range Provided - December 07, 2024 Krt/V 0.00 No Reference Ran ge Provided - December 07, 2024 wstdKt/V without residual 2.4 No Reference Range Provided - December 07, 2024 wstdKt/V without residual 2.4 No Reference Range Provided - January 11, 2025 spKt/V Gotch 1.49 No Reference Ran ge Provided - January 11, 2025 spKt/V (Daugirdas II) 1.47 No Reference Range Provided - January 11, 2025 Krt/V 0.00 No Reference Ran ge Provided - January 11, 2025 eKt/V ([place]) 1.26 No Reference Range Provided - January 11, 2025 wstdKt/V 2.4 No Reference Ran ge Provided - January 11, 2025 wstdKt/V, residual 0.0 No Reference Range Provided - January 11, 2025 Bone/Mineral Result Type Result Value Relevant Referen ce Range Interpretation Date Magnesium 1.9 mg/dL 1.6 - 2.6 mg/dL - April 13, 2024 Vitamin D 25 Hydroxy 56.9 ng/mL 30.0 - 100.0 ng/mL - April 13, 2024 Magnesium 1.7 mg/dL 1.6 - 2.6 mg/dL - July 13, 2024 PTH-Intact, Plasma 189 pg/mL 16 - 80 pg/mL High Sep Magnesium 2.1 mg/dL 1.6 - 2.6 mg/dL - September 12, 2024 PTH-Intact, Plasma 221 pg/mL 16 - 80 pg/mL High October 17, 2024 Calcium, Total 10.0 mg/dL 8.7 - 10.4 mg/dL - November 09, 2024 Phosphorus 3.0 mg/dL 2.6 - 4.5 mg/dL - November 09, 2024 Ca x P Product 30 0 - November 09, 2 025 Corrected Ca x P Product 30 0 - November 09, 2024 Phosphorus 3.5 mg/dL 2.6 - 4.5 mg/dL - December 12, 2024 Calcium, Total 9.7 mg/dL 8.7 - 10.4 mg/dL - December 12, 2024 Ca x P Product 34 0 - December 12, 2 025 Corrected Ca x P Product 27 0 - 54 - January 11, 2025 Calcium, Total 9.9 mg/dL 8.7 - 10.4 mg/dL - 2024 Phosphorus 2.6 mg/dL 2.6 - 4.5 mg/dL - January Ca x P Product 26 0 - 54 - January 11, 2025 PTH-Intact, Plasma 41 pg/mL 16 - 80 pg/mL - Jan Liver/Nutrition Result Type Result Value Relevant Reference Range Interpre tat Albumin (BCG) 3.9 g/dL 3.5 - 5.2 g/dL - November 09 , 2024 Total Protein 7.5 g/dL 6.0 - 8.5 g/dL - November Globulin (Calc) 3.6 g/dL 2.0 - 4.0 g/dL - November 09, 2024 A/G Ratio 1.1 1.0 - 2.0 - November 09, 2024 eNPCR 1.17 No Reference Ran ge Provided - November 09, 2024 eNPCR 1.29 No Reference Ran ge Provided - December 07, 2024 Total Protein 7.5 g/dL 6.0 - 8.5 g/dL - December Albumin (BCG) 4.0 g/dL 3.5 - 5.2 g/dL - December Globulin (Calc) 3.5 g/dL 2.0 - 4.0 g/dL - December 07, 2024 A/G Ratio 1.1 1.0 - 2.0 - December 07, 2024 Total Protein 7.1 g/dL 6.0 - 8.5 g/dL - January 11, 2025 Albumin (BCG) 3.6 g/dL 3.5 - 5.2 g/dL - January 11, 2025 eNPCR 1.09 No Reference Ran ge Provided - January 11, 2025 Globulin (Calc) 3.5 g/dL 2.0 - 4.0 g/dL - 2024 A/G Ratio 1.0 1.0 - 2.0 - January 11 Immunochemistry Result Type Result Value Relevant Reference Range Interpre tation HCV s/co ratio < 0.02 0.00 - [...] Conventional Hemodialysis Data Element Value Order Date/Time January 16, 2025 Frequency 3X Week Treatment Days MonWedFri Dialyzer 180NRe Optiflux Treatment Time (Total Minutes) 210 min Blood Flow Rate (mL/min) 450 mL/min Dialysate Flow Rate Manual 800 Estimated Dry Weight 77.5 kg Dialysate Concentrate 3.0 K, 2.5 Ca, 1.0 Mg, 100 Dextrose (G3251) Sodium (mEq/L) 135 mEq/L Bicarb Machine Setting (mEq/L) 30 mEq/L Dialysis Access Hemodialysis-AV Fist lona-Standard, Left Forearm, Other/Unknown Arterial Needle Size 15g1 Venous Needle Size 15g1 IMMUNIZATIONS Vaccine Date Dose Route Status Flu Vaccine - Flublok Trivalent March 23, 2024 0.5 mL Intramuscular Completed Flu Vaccine - Flublok Quadrivalent March 23, 2023 0.5 mL Intramuscular Completed Idhasoft-Edumedics COVID-19 Vac cine, Bivalent, Booster March 17, [...] (mL/min) Dialysate Dialyzer Dialysis Access Meds Admin Augus t 2024 Weight 79.20 kg Weight 76.30 kg 03:30:00 430 2.0 K, 2.5 Ca, 1.0 Mg, 100 Dextrose (G2251) 180nre Optifl ux Blood Pressure-sitting 147/69 mmHg Blood Pressure-sit ting 148/70 mmHg Heart Rate 72 beats per minute Heart Rate 69 beats per minute Respiratory Rate 16 breaths per minute Respiratory Rate 16 breaths per minute Temperature 97.9 deg. F Temperature 97.6 deg. F January 16, 2025 Weight 79.30 kg Weight 77.50 kg 03:27:00 390 3.0 K, 2.5 Ca, 1.0 Mg, 100 Dextrose (G3251) 180nre Optiflux Hemodialysis-AV Fistula-Standard, Left Forearm, Other/Unknown - Blood Pressure-sitting 113/52 mmHg Blood Pressure-sit ting 114/44 mmHg Heart Rate 73 beats per minute Heart Rate 70 beats per minute Respiratory Rate 15 breaths per minute Respiratory Rate 16 breaths per minute Temperature 98.1 deg. F Temperature 97.5 deg. F January 18, 2025 Weight 79.20 kg Weight 77.80 kg 03:01:00 450 3.0 K, 2.5 Ca, 1.0 Mg, 100 Dextrose (G3251) 180nre Optiflux Hemodialysis-AV Fistula-Standard, Left Forearm, Other/Unknown - Blood Pressure-sitting 121/60 mmHg Blood Pressure-sit ting 108/55 mmHg Heart Rate 71 beats per minute Heart Rate 69 beats per minute Respiratory Rate 15 breaths per minute Respiratory Rate 15 breaths per minute Temperature 97.9 deg. F Temperature 97.7 deg. F
--- OUTSIDE RECORDS SUMMARY | 2025-01-19 16:55 | XMS_ITS | Clinical Summary ---
Author Organization [facility] Address [address] [place] [id number] Care Team Providers Care Assembler Show Motor Name Role Phone Anna Marie Oglesby DO Primary Care Provider Jonah Aguero INFORMATICA DEVELOPER Unavailable [phone] Allergies Active Allergy Reactions Criticality Noted Date [...] mg enteric coated tabletIndication s:Atherosclerosi s of [place] coronary artery of [place] heart with angina pectoris Take 1 tablet [...] acetaminophen dose: 4000mg in 24 hrs. Active guaiFENesin 100 mg/5 mL liquidIndication s:Chronic cough Take 5 mL (100 mg) by mouth every 4 hours if needed for Expectoration. 118 mL 6 03/03/20 23 Active pantoprazole (PROTONIX) 40 mg delayed-release tablet Take 40 mg by mouth once daily. Active Vit B Cplx #[id number] nc (Dialyvite) [phone] qx-ds-rcw-mg tablet Take 1 Tablet by mouth once daily. 07/02/19 24 Active clopidogreL (Plavix) 75 mg tabletIndication s:Bilateral carotid artery stenosis,Coronar y artery disease, unspecified vessel or lesion type, unspecified whether angina present, unspecified whether [place] or transplanted heart Take 1 Tablet [...] per actuation) nasal solution (FLONASE) Inhale 1 [place] into affected nostril(s) once daily if needed [...] daily if needed. Active neomycin-bacitra nicole-polymyxin (Neosporin (cvi-mjg-rmruk)) 3.5mg-400 unit-5,000 unit/gram ointment Apply topically to [...] weeks. 8 mL 11 11/10/19 25 Active mirtazapine (REMERON) 7.5 mg tabletIndication s:Insomnia, idiopathic Take 1 Tablet (7.5 mg) by mouth at bedtime. 30 Tablet 12/14/19 25 Active methyl salicylate-menth ol (ARY BECKMAN; MENTHOLATUM DEEP HEAT) 15-10 % topical creamIndications :Pain of lower extremity, unspecified laterality Apply topically to affected area(s) 3 times daily if needed (pain). 85 g 01/03/20 23 025 Discontin ued(*Med complete/ Regimen complete/ Level of care change) Active Problems Problem Noted Date Diagnosed Date Dilated cardiomyopathy 01/03/2025 Overview (01/03/2025): AI Summary: The patient had a history of ischemic congestive cardiomyopathy, which was mentioned on 02/16/2024. Dilated cardiomyopathy, specifically non-ischemic dilated type, was also mentioned. 12/09/24: BP 99/45 12/09/24: HR 79.0 /min On meds: acetaminophen, aspirin, diclofenac, menthol / methyl salicylate, nitroglycerin, pravastatin Recent notes: 12/07/24: Progress Notes - Nursing Notes by Treva Wilson NP ... [+] ? Ischemic congestive cardiomyopathy (HC) 02/16/2024 03/04/24: Miscellaneous Notes - Dialysis Note by 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 APRN-PRODUCTION EXPERT (from [facility]) ... [+] Ischemic congestive cardiomyopathy 414.8 I25.5 History of asbestos exposure 01/03/2025 Open wound of right index finger 01/03/2025 Overview (01/03/2025): New 01/03/25 Skin ulcer of left calf with fat layer exposed 0 11/15/2024 Overview (11/15/2024): Secondary to hematoma Osteomyelitis of toe of left foot 11/15/2024 Skin ulcer of left thigh, limited to breakdown o f skin 11/15/2024 Overview (11/15/2024): New 11/15/24 Open wound of toe 09/27/2024 Skin ulcer of right thigh with fat layer exposed 09/27/2024 Incontinence of feces 09/27/2024 Sensorineural hearing loss, bilateral 09/27/2024 Pulmonary edema with congestive heart failure Other psoriasis 09/27/2024 Oropharyngeal dysphagia 09/27/2024 Hemorrhoid 09/27/2024 Age-related cataract 09/27/2024 Chronic systolic [...] enlargement. The patient's heart failure is considered wykga-ko-cgmolbt, and follow-up care is planned. 05/31/24: LVEF 40-45% 08/30/24: BP 134/62 08/30/24: HR 73 /min On meds: nitroglycerin, ubidecarenone Recent encounter dx: 06/16/24: Appointment - [facility] 05/25/24: Discharge - [facility], 3544, 3544 / 01 04/19/24: Appointment - [facility] 04/09/16: Discharge - [facility], [id number], E3155 / 01 10/14/06: Appointment - [facility] Recent studies: 05/30/24: Corresp[facility]Imaging - [facility] ... [-] Findings compatible with heart failure [...] MD, Checo Wu MD ... [-] Name: Korey Mackay SS/MR#: [id number] Date: 07/05/2006 Physician Requesting Echo: Chris Morley MD Performed at: [facility] Copy To: Marques Gomez MD Indication for study: congestive heart failure Recent notes: 08/30/24: Progress Notes - Vascular and Endovascular Surgery by Sneha Jensen MD ... [+] ? Acute on chronic [...] Lexus Ballard MA ... [-] DOD 06/08/2024 [facility] Acute on chronic systolic heart failure 06/16/24: [...] mg/dL Recent encounter dx: 06/16/24: Appointment - [facility] Recent notes: 01/05/23: Progress Notes by [...] mg/dL Recent encounter dx: 06/16/24: Appointment - [facility] Recent notes: 01/05/23: Progress Notes by Kaykay Rosenthal NP ... [+] Afebrile/hemodynamically stable, non- toxic appearing, [...] setting of underlying dementia with vulnerable brain. 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 [+] Indication: 78-year-old with chronic kidney disease progressed to end- stage renal disease requiring hemodialysis. Recent notes: 10/26/24: Miscellaneous Notes - Dialysis Note by Darren Youssef MD (from [facility]) ... [-] end stage renal disease. [...] ubidecarenone Recent encounter dx: 01/12/24: Appointment - [facility] 11/04/22: Appointment - [facility] Recent notes: 08/16/24: Progress Notes - Interventional Cardiology Consult Note by Sbeastian Wing MD ... [+] Korey Mackay is a delightful 84-year-old gentleman with a [...] by Yoana Jarquin NP ... [+] Mr. Korey Mackay is an 80 y.o. male with a past medical history significant for end-stage renal disease on hemodialysis, type 2 diabetes complicated by neuropathy and retinopathy, hypertension, hyperlipidemia, ischemic cardiomyopathy (EF 45%), coronary artery disease status post CABG (2006), hypothyroidism, secondary hyperparathyroidism, second-degree heart block, urinary retention and h... ... [-] Complete heart block 02/01/19: Progress Notes by Bre Varela NP ... [+] He appears to have atrial fibrillation with an idioventricular beat, indicating maybe A-Fib with a complete heart block. ... [-] on EKG last month he reported to have A-Fib with complete heart block and an idioventricular escape rhythm. Hyperparathyroidism due to renal insufficiency 0 11/04/2022 Coagulation defect, unspecified 11/04/2022 Blood in urine 10/30/2020 senior care (current) use of insulin 10/19/2020 Calculus of gallbladder without cholecystitis Second degree heart block 08/07/2016 Overview (08/07/2016): Arie 1 Allergic rhinitis 10/31/2015 Type 2 diabetes mellitus with left diabetic foot ulcer 09/05/2015 Overview (01/03/2025): >>OVERVIEW FOR TYPE 2 DIABETES MELLITUS (HC) WRITTEN ON 11/15/2024 11:34 AM BY JONAH AGUERO NP AI Summary: As of 08/30/24: The patient [...] human Recent encounter dx: 08/23/24: Appointment - [facility] [place] 08/09/24: Appointment - [facility] 07/26/24: Appointment - [facility] [place] 06/16/24: Appointment - [facility] 01/12/24: Appointment - [facility] Recent notes: 08/30/24: Progress Notes - Vascular and Endovascular Surgery by Sneha Jensen MD ... [+] Type 2 diabetes mellitus with left diabetic foot ulcer (HC) 06/02/2024 ... [+] Type 2 diabetes mellitus without complication, with long-term current use of insulin (HC) 01/04/2023 08/23/24: Progress Notes - Nursing Notes [...] Illness by Zeny Medley MD ... [+] Type 2 diabetes mellitus without complication, with long-term current use of insulin (HC) E11.9, Z79.4 ... [+] Type 2 diabetes mellitus with [...] human Recent encounter dx: 09/22/24: Appointment - [facility] 09/15/24: Appointment - [facility] 09/04/24: Discharge - [facility], [facility], [id number], E4146 / 01 08/23/24: Appointment - [facility] 08/09/24: Appointment - [facility] Recent notes: 10/13/24: Progress Notes by Jonah [...] Progress Notes - Nursing Notes by Trey Fisher- Lloyd Carlson MD ... [+] Type 2 diabetes mellitus without complication, with long-term current use of insulin (HC) E11.9, Z79.4 ... [+] Type 2 diabetes mellitus with left diabetic foot ulcer (HC) E11.621, L97.529 ... [+] Type 2 diabetes mellitus with [...] left diabetic foot infection (HC) ... [+] Korey Mackay is a(n) 84 y.o. with a history [...] him to f/u with his PMD in [place] early next week for a repeat check. Patient and agree to this plan. If not improving, can also help them schedule with ID at [facility] for another exam. -RTC PRN Pulmonary emphysema 04/13/2015 Overview (09/27/2024): AI Summary: [...] tiotropium Recent encounter dx: 06/16/24: Appointment - [facility] 03/03/24: Appointment - [facility] 01/12/24: Appointment - [facility] 02/07/16: Support OP Encounter - [facility] 12/20/15: Appointment - [facility] Recent notes: 08/30/24: Progress Notes - Vascular and Endovascular Surgery by Sneha Jensen MD ... [+] ? Pulmonary emphysema (HC) [...] APAP: 10-20, Ramp: 5x10 min, [place] Asbestosis(501) 12/26/2010 Overview (12/26/2010): Needs annual CXR [...] of care unspecified Overview (07/10/2006): Non Q SC 06/14 Atherosclerosis of [place] co ronary artery of [place] heart with angina pectoris Overview (07/10/2006): Status post CABG x4; 07/09/06 Personal history of contact with and (suspected) exposure to asbestos Overview (10/07/2007): With abnl lung nodules Chronic airway obstruction, not elsewhere classi fied Anemia of chronic renal failure Resolved Problems Problem Noted Date Diagnosed Date Resolved Date Hematoma of left lower leg 09/27/2024 0 01/03/2025 Overview (01/03/2025): Resolved 01/03/25 Pleural effusion 09/27/2024 09/27/2024 Hemorrhage of pseudoaneurysm [...] susceptible Stap hylococcus aureus infection 10/31/2015 09/27/2024 Fracture of fibula with tibia, left, closed 04/13/2015 01/03/2025 DM Renal Manif Type II 01/18/201309/03 DM Renal Manif Type II 01/18/201309/03 DM Renal Manif Type II 06/10/200809/03 Overview (06/10/2008): Creatinine 1.4 -1.5 Encounters Date Type Department Care Team Description 01/19/2025 Nurse Triage [facility] [address] [place] [address] Anna Marie Oglesby, Leg Swelling 01/19/2025 Telephone [facility] [address] [place] [address] Jonah Aguero NP Concerns 01/03/2025 11:30 AM CDT Office Visit [facility] [address], [place] [address] Jonah Aguero NP Wound Check 01/02/2025 Travel 12/26/2024 Telephone [facility] [address], [place] [address] Jonah Aguero NP DME Supply 12/23/2024 Telephone [facility] [address] [place] [address] Arnie Clemens MD Medication Management 12/15/2024 Telephone [facility] [address] [place] [address] Jonah Aguero NP Concerns (Change in wound- urgent callback requested for direction) 12/13/2024 1:45 PM CDT Office Visit [facility] [address] [place] [address] Anna Marie Oglesby, Hospital F/U (leg and arm pain, spreading to hands. ); Urinary Problem (concerned he hasn't had his bladder flushed.) 12/12/2024 Travel 12/08/2024 Telephone [facility] [address] [facility] [address] [place] [phone] Corrine Winters RN Appointment 12/07/2024 4:25 PM CDT Ancillary Procedure [facility] [address] [place] [address] 12/07/2024 3:55 PM CDT Office Visit [facility] [address] [place] [address] Treva Wilson NP Finger Pain/problem (Right pointer finger. ) 12/06/2024 3:00 PM CDT Telemedicine [facility] [address] [place] [address] Jonah Aguero NP Telehealth (Virtual Visit; no vitals taken); Wound Check 12/06/2024 Travel 11/15/2024 11:30 AM CDT Office Visit [facility] [address] [place] [address] Jonah Aguero NP Wound Check 11/15/2024 Travel 11/09/2024 4:05 PM CDT Office Visit [facility] [address] [place] [address] Arnie Clemens MD Derm Problem (Right index finger/fingernail is becoming painful/Has been using over the counter fungal treatment without improvement); Finger Pain/problem 11/09/2024 Travel from Last 3 Months Immunizations Immunization Administration [...] on file Legal Sex Male 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 Gender Identity Not on file Sexual Orientation Not on file Occupation Industry Job Start Date Job End Date retired Not on file Not on file Not on file Obstetrics History Last Filed Vital Signs Vital Sign Reading Time Taken Comments Blood Pressure 111/55 01/03/2025 12:00 PM CDT Pulse 75 01/03/2025 12:00 PM CDT Temperature 36.2 C (97.2 F) 01/03/2025 12:00 PM CDT Respiratory Rate 18 01/03/2025 12:00 PM CDT Oxygen Saturation 93% 01/03/2025 12:00 PM CDT Inhaled Oxygen Concentration - - Weight 77.6 kg (171 lb) 09/22/2024 1:30 PM CDT Height 182.9 cm (6') 09/03/2024 5:30 PM CDT Body Mass Index 23.19 09/03/2024 5:30 PM CDT Plan of Treatment Upcoming Encounters Date Type Department Care Team (Late st Contact Info) Description 01/24/2025 1:00 PM CDT Orders Only [address] [place] [phone] 01/24/2025 1:45 PM CDT [address] Only [address] [address] 01/31/2025 11:00 AM CDT Office Visit [facility] [address] [place] [address] Jonah Aguero NP [address] [place] [address] 01/31/2025 1:00 PM CDT Office Visit [place] [id number] [facility] [address] [place] [address] Sneha Jensen MD [address] [place] [address] 02/15/2025 11:30 AM CDT Cardiac Device Check [facility] [address] [place] [address] Health Maintenance Due Date Last Done Comments [...] history exists Medical Devices Implanted Type Area Metal Patternmaker Apprentice Device Identifier Shelf Expiration Date Model / Serial / Lot Screw Sm Joint 3.5x80mm Os Slf Tppng Bob - [id number] Implanted:Qty: 1 on 04/15/2015 by Rj Bui MD at [facility] Left: Leg [employer] [id number]# / / Screw Sm Joint 4x85mm Axsos Lock Slf Tppng [address] - [id number] Implanted:Qty: 1 on 04/15/2015 by Rj Bui MD at [facility] Left: Leg [employer] [id number]# / / Screw Sm Joint 3.5x75mm Os Slf Tppng Bob - [id number] Implanted:Qty: 1 on 04/15/2015 by Rj Bui MD at [facility] Left: Leg [employer] [id number]# / / Screw Sm Joint 3.5x85mm Os Slf Tppng Bob - [id number] Implanted:Qty: 1 on 04/15/2015 by Rj Bui MD at [facility] Left: Leg [employer] [id number]# / / Plate Tib Lt 10 Hole Axs[employer] Prox Lateral - [id number] Implanted:Qty: 1 on 04/15/2015 by Rj Bui MD at [facility] Left: Leg [employer] [id number]# / / Screw Sm Joint 3.5x28mm Os Slf Tppng Bob - [id number] Implanted:Qty: 1 on 04/15/2015 by Rj Bui MD at [facility] Left: Leg [employer] [id number]# / / Screw Sm Joint 3.5x30mm Os Slf Tppng Bob - [id number] Implanted:Qty: 1 on 04/15/2015 by Rj Bui MD at [facility] Left: Leg [employer] [id number]# / / Screw Sm Joint 3.5x32mm Os Slf Tppng Bob - [id number] Implanted:Qty: 1 on 04/15/2015 by Rj Bui MD at [facility] Left: Leg [employer] [id number]# / / Screw Sm Joint 4x26mm Axsos Lock Slf Tppng [address] - [id number] Implanted:Qty: 1 on 04/15/2015 by Rj Bui MD at [facility] Left: Leg [employer] [id number]# / / Explanted Type Area Metal Patternmaker Apprentice Device Identifier Shelf Expiration Date Model / Serial / Lot K-Wire [place] 10pk - [id number] Explanted:Qty: 2 on 04/15/2015 at [facility] Left: Leg [employer] [id number]# / / Procedures Procedure Name Priority Date/Time Associated Diagnosis Comments XR FINGER 3 VIEWS RIGHT STAT 12/07/2024 4:31 PM CDT Skin infection Open wound of finger, initial encounter from Last 3 Months Results * XR [...] by: Tarun Gray MD @12/07/2024 6:54:50 PM Treva Danitzalian Wilson INFORMATICA DEVELOPER GENERAL IMAGING Aleah l Result from Last 3 Months Insurance MEDICARE RR PART A HB ONLY [facility] [id number] [place] [id number] Advance Directives Documents on File Type Date Recorded Patient Energy Sales Broker Expl anation Power of Computer Analyst 06/05/2019 06/05/2019 Healthcare Directive 06/05/2019 019 Power of Computer Analyst 07/19/2006 * DNR (Latest Code Status on [...] Comments Code Status Discussion: Discussed Care Teams Assembler Show Motor Relationship Specialty Start Date End Date Anna Marie Oglesby DO [facility] [place] [address] PCP - General Family Practice 12/05/24 Jonah Aguero NP [address] [place] [address] Nurse Practitioner Nurse Practitioner - Adult 09/27/24
--- OUTSIDE RECORDS SUMMARY | 2025-01-19 16:56 | XMS_ITS | Clinical Summary ---
Author Organization [facility] Facility Address [address] [address] Care Team Providers Care Latent Print Examiner Name Role Phone Unavailable Primary Care Provider [...] Encounters Date Type Department Care Team Description 01/11/2025 Orders Only [facility] [address] [place] [phone] Darren Youssef MD 01/11/2025 Treatment [facility] [address] [place] [phone] Darren Youssef MD End stage renal disease; Dependence on renal dialysis 01/04/2025 Orders Only [facility] [place] [address] [place] [phone] Darren Youssef MD 01/04/2025 Treatment [facility] [address] [place] [phone] Darren Youssef MD End stage renal disease; Dependence on renal dialysis 12/28/2024 Orders Only [facility] [address] [place] [address] Darren Youssef MD 12/28/2024 Treatment [facility] [address] [place] [address] Elizabeth Hicks APRN-[employer] End stage renal disease; Dependence on renal dialysis 12/21/2024 Orders Only [facility] [address] [place] [address] Darren Youssef MD 12/14/2024 Orders Only [facility] [address] [place] [address] Darren Youssef MD 12/12/2024 Orders Only [facility] [address] [place] [address] Darren Youssef MD 12/07/2024 Orders Only [facility] [address] [place] [address] Darren Youssef MD 11/30/2024 Orders Only [facility] [address] [place] [address] Darren Youssef MD 11/28/2024 Treatment [facility] [address] [place] [address] Darren Youssef MD End stage renal disease; Dependence on renal dialysis 11/23/2024 Orders Only [facility] [address] [place] [address] Darren Youssef MD 11/23/2024 Treatment [facility] [address] [place] [address] Elizabeth Hicks APRN-H[employer] End stage renal disease; Dependence on renal dialysis 11/16/2024 Orders Only [facility] [address] [place] [address] Darren Youssef MD 11/09/2024 Orders Only [facility] [address] [facility] [address] [place] [phone] Darren Youssef MD 11/02/2024 Orders Only [facility] [address] [facility] [address] [place] [phone] Darren Youssef MD 10/26/2024 Treatment [facility] [address] [facility] [address] [place] [address] Darren Youssef MD End stage renal disease; Dependence on renal dialysis 10/19/2024 Orders Only [facility] [address] [facility] [address] [place] [address] Darren Youssef MD from Last 3 Months [...] Risk Dialysis 4-dose series) 1960 Pneumococcal Vaccine: 50+ Ye ars (3 of 3 - PCV20 or PCV21) 06/06/2015 04/11/2015, 03/23/2013, 08/25/2003, Additional history exists Diabetes: Ophthalmology Exam 09/08/2019 Diabetes: Pedal Pulse Checked 09/08/2019 Diabetes: Sensory Foot Exam 09/08/2019 Diabetes: Visual Foot Exam 09/08/2019 Diabetes: Hemoglobin A1C 08/29/202405/31/ 024, 01/12/2024, 09/24/2020, Additional history exists Influenza Vaccine (#1) 2025 4, 03/23/2023, 03/10/2022, Additional history exists Pneumococcal Vaccine: Peds ( 0 to 5 Years) and At-Risk Patients (6 to 49 Years) Discontinued 04/11/2015, 03/23/2013, 08/25/2003, Additional history exists Procedures Procedure Name Priority Date/Time Associated Diagnosis Comments [facility] RESULTS Routine 01/11/2025 HD KINETICS Routine 01/11/2025 CHEMISTRY Routine 01/11/2025 CHEMISTRY Routine 01/11/2025 POST CHEMISTRY Routine 01/11/2025 HEMATOLOGY Routine 01/11/2025 HEMATOLOGY Routine 01/04/2025 HEMATOLOGY Routine 12/28/2024 HEMATOLOGY Routine 12/21/2024 HEMATOLOGY Routine 12/14/2024 CHEMISTRY Routine 12/12/2024 [facility] RESULTS Routine 12/07/2024 HEMATOLOGY Routine 12/07/2024 HD KINETICS Routine 12/07/2024 CHEMISTRY Routine 12/07/2024 IMMUNO CHEMISTRY Routine 12/07/2024 POST CHEMISTRY Routine 12/07/2024 HEMATOLOGY Routine 11/30/2024 HEMATOLOGY Routine 11/23/2024 HEMATOLOGY Routine 11/16/2024 [facility] LAB RESULTS Routine 11/09/2024 HD KINETICS Routine 11/09/2024 CHEMISTRY Routine 11/09/2024 POST CHEMISTRY Routine 11/09/2024 HEMATOLOGY Routine 11/09/2024 IMMUNO CHEMISTRY Routine 11/09/2024 HEMATOLOGY Routine 11/02/2024 HEMATOLOGY Routine 10/19/2024 HEMOGLOBIN A1C Routine 09/24/2020 11:00 AM CDT from Last 3 Months or Most Recently Relevant to Health Maintenance Results * HD KINETICS (01/11/2025) Only the most recent of3 resultswithin the time period is included. % Urea Reduction 71 65 - 80 % [facility] 01/11/2025 01/13/2025 3:4 9 AM CDT Narrative [facility] - 01/13/2025 Unless otherwise specified, test(s) performed at: [facility], [address] [place] [address], [place] [address] EXTERMINATION SUPERVISOR: Rojas Kirkland M.D., Ph.D For any questions, please call customer service at FREQUENCY:MONTHLY Resulting Agency Comment Specimen source: Plasma us Darren Youssef MD LAB BLOOD ORDERABLES Final Re sult [facility] See order comments or contact performing lab Unknown, [place] * (ABNORMAL) POST CHEMISTRY (01/11/2025) Only the most recent of3 resultswithin the time period is included. BUN Post Dialysis 20(H) 6 - 19 mg/dL [facility] 01/11/2025 01/13/2025 3:4 9 AM CDT Narrative [facility] - 01/13/2025 Unless otherwise specified, test(s) performed at: [facility], [address] [place] [address], [place] [address] EXTERMINATION SUPERVISOR: Rojas Kirkland M.D., Ph.D For any questions, please call customer service at FREQUENCY:MONTHLY Resulting Agency Comment Specimen source: Plasma us Darren Youssef MD LAB BLOOD ORDERABLES Final Re sult [facility] See order comments or contact performing lab Unknown, [place] * (ABNORMAL) HEMATOLOGY (01/11/2025) Only the most recent of12 resultswithin the time period is included. Neutrophils 83.6(H) 40.0 - 75.0 % Spectra [...] 01/12/2025 Unless otherwise specified, test(s) performed at: [facility], [address] [place] [address], [place] [address] EXTERMINATION SUPERVISOR: Rojas Kirkland M.D., Ph.D For any questions, please call customer service at FREQUENCY:MONTHLY Resulting Agency Comment Specimen source: Blood us Darren Youssef MD LAB BLOOD ORDERABLES Final Re sult [facility] See order comments or contact performing lab Unknown, [place] * (ABNORMAL) [facility] Chemistry (01/11/2025) Only the most recent of5 resultswithin the time period is included. BUN 70(H) 6 - 19 mg/dL [facility] [...] 01/11/2025 01/13/2025 1:5 4 AM CDT Narrative [facility] - 01/13/2025 Unless otherwise specified, test(s) performed at: [facility], [address] [place] [address], [place] [address] EXTERMINATION SUPERVISOR: Rojas Kirkland M.D., Ph.D For any questions, please call customer service at FREQUENCY:MONTHLY Resulting Agency Comment Specimen source: Serum Darren Youssef MD LAB BLOOD ORDERABLES Final Re sult [facility] See order comments or contact performing lab Unknown, [place] * [facility] Lab Results (01/11/2025) Only the most recent of3 resultswithin the time period is included. [facility] eNPCR 1.09 [facility] Center spKt/V Gotch 1.49 [facility] ge [place] nPCR_HD 1.18 [facility] WSTDKT/V 2.4 [facility] eKt/V Gotch 1.26 [facility] e [place] eKdrt/V 1.26 [facility] PCR 82.46 [facility] spKt/V (Daugirdas II) 1.47 [facility] Center eKt/V ([place]) 1.26 [facility] Center 01/11/2025 01/11/2025 [facility] Ordering Provider LAB BLOOD ORDERABLES Final Result Performing Organization Address City/[facility]/ZIP Co de Phone Number [facility] Center Contact Performing lab Unknown, [place] * IMMUNO CHEMISTRY (12/07/2024) Only the most recent of2 resultswithin the time period is included. [facility] Hep B Surface Ag Negative Negative [facility] Hepatitis C Antibody Nonreactive Nonreactive [facility] Comment: No HCV antibody detected. The above test result was obtained using [employer] IM chemiluminescent method. Results obtained with different assay methods or kits cannot be used interchangeably. S/CO Ratio <0.02 0.00 - 0.79 [facility] Comment: s/co ratio Interpretation Supplemental testing <0.80 Nonreactive No further testing required. 0.80-0.99 Equivocal HCV RNA Quantitative Real-Time PCR is recommended. 1.00->11.00 Reactive HCV RNA Quantitative Real-Time PCR is recommended to distinguish active from resolved cases. 12/07/2024 12/08/2024 9:4 1 AM CDT Narrative [facility] - 12/08/2024 Unless otherwise specified, test(s) performed at: [facility], [address] [place] [address], [place] [address] EXTERMINATION SUPERVISOR: Rojas Kirkland M.D., Ph.D For any questions, please call customer service at FREQUENCY:MONTHLY Resulting Agency Comment Specimen source: Plasma us Darren Youssef MD LAB BLOOD ORDERABLES Final Re sult [employer] See order comments or contact performing lab Unknown, [place] * (ABNORMAL) Hemoglobin A1c (09/24/2020 11:00 AM CDT) Hemoglobin A1C 5.8(H) 0.0 - 5.6 %A1c APS JARRODIRENE [facility] 09/24/2020 11:0 0 AM CDT 09/25/2020 12:06 PM CDT us Checo Sky MD LAB BLOOD ORDERABLES Edited Resu lt - Final ADIN RAYO [facility] from Last 3 Months or Most Recently Relevant to Health Maintenance Insurance Medicare
[2025-01-19 17:02] VITALS: BP 131/68; PULSE 82; RESP 20; TEMP 36.1; O2SAT 96
--- NOTE | 2025-01-19 17:19 | ED.GENADULT ---
HPI - General Adult General Date Seen: 01/19/25 Chief complaint: Extremity Pain/Injury, Lower Stated complaint: swelling in L leg, bacterial infection Time Seen by Provider: 01/19/25 16:55 History of Present Illness HPI narrative: Patient is an 84-year-old here with his for evaluation of his left leg. I saw him on December 10 time he had had a hematoma that drained, evaluation was pretty unrevealing at that time, did not appear to be infected, and he was discharged home. He sees [facility] at [facility] once a month, he scheduled to see them again on February 02. Anibal became concerned because she feels like the bottom of his foot is kind of red and then the calf is very firm to the touch. He has not had fevers, his appetite has been significantly down lately but this is ongoing. He has not been significantly more weak or confused than usual. She has been caring for his wounds as recommended at home. When he was here in December we did a lower extremity Doppler which was negative for DVT as well as an x-ray of the tibia and fibula, this was notable for a little bit of soft tissue gas but this was right in the area where the hematoma had just drained and looked to be just in that open area of the wound. Did not appear to me to be suggestive of significant infection. Until today, it sounds as if things were going fine with leg. Related Data Home Medications ?Medication ?Instructions ?Recorded ?Confirmed acetaminophen 650 mg 650 mg PO Q8H PRN 12/27/22 01/19/25 tablet,extended release (Tylenol Arthritis Pain) aspirin 81 mg capsule 81 mg PO DAILY 12/27/22 01/19/25 coenzyme Q10 100 mg capsule (Co 100 mg PO DAILY 12/27/22 01/19/25 Q-10) guaifenesin 100 mg/5 mL oral liquid 100 mg PO Q4H PRN coughing 12/27/22 01/19/25 insulin aspart U-100 100 unit/mL 5 unit subcut TIDWM 12/27/22 01/19/25 (3 mL) subcutaneous pen (Novolog FlexPen U-100 Insulin aspart) loratadine 10 mg tablet (Claritin) 10 mg PO DAILY 12/27/22 01/19/25 montelukast 10 mg tablet 10 mg PO HS 12/27/22 01/19/25 (Singulair) nitroglycerin 0.4 mg sublingual 0.4 mg sublingual Q5M PRN 12/27/22 01/19/25 tablet (Nitrostat) sennosides 8.6 mg capsule (senna) 8.6 - 17.2 mg PO BID 12/27/22 01/19/25 B complex 11-folic acid 1 mg-C 100 1 tab PO BID 10/06/23 01/19/25 mg-biotin 300 mcg-zinc 50 mg tablet (Dialyvite) albuterol sulfate 90 mcg/actuation 2 inh inhalation Q4H PRN 10/06/23 01/19/25 aerosol inhaler (Ventolin HFA) cholecalciferol (vitamin D3) 50 50 mcg PO DAILY 10/06/23 01/19/25 mcg (2,000 unit) capsule cyclosporine 0.05 % eye drops in a 1 drp ophthalmic (eye) Q12H 10/06/23 01/19/25 dropperette (Restasis) fluticasone propionate 50 1 spray intranasal DAILY PRN 10/06/23 01/19/25 mcg/actuation nasal spray,suspension (24 Hour Allergy Relief) insulin glargine 100 unit/mL (3 18 unit subcut HS 10/06/23 01/19/25 mL) subcutaneous pen (Lantus Solostar U-100 Insulin) krill 1,000 mg-omega-3 230 mg-dha 1 cap PO DAILY 10/06/23 01/19/25 60 gm-mis-wobxeumsb-astaxan capsule (MegaRed Jackson-3 Krill Oil) pantoprazole 40 mg tablet,delayed 40 mg PO DAILY 10/06/23 01/19/25 release pravastatin 80 mg tablet 80 mg PO HS 10/06/23 01/19/25 vitamin E 268 mg (400 unit) capsule 268 mg PO DAILY 10/06/23 01/19/25 clopidogrel 75 mg tablet 75 mg PO DAILY 05/24/24 01/19/25 diphenhydramine HCl 25 mg capsule 25 mg PO Q4H PRN 05/24/24 01/19/25 (Aler-Cap) fluticasone 100 mcg-salmeterol 50 1 inh inhalation BID 05/24/24 01/19/25 mcg/dose blistr powdr for inhalation (Wixela Inhub) hydrocortisone 2.5 % topical cream 1 applic topical BID PRN 05/24/24 01/19/25 levothyroxine 175 mcg capsule 175 mcg PO DAILY 05/24/24 01/19/25 magnesium hydroxide 400 mg/5 mL 30 ml PO DAILY PRN 05/24/24 01/19/25 oral suspension (Dulcolax (magnesium hydroxide)) methyl salicylate 15 %-menthol 10 1 applic topical TID PRN 05/24/24 01/19/25 % topical cream (Analgesic Jefferson (m.salic-menthol)) tiotropium bromide 18 mcg capsule 1 cap inhalation DAILY 05/24/24 01/19/25 with inhalation device (Spiriva with HandiHaler) midodrine 10 mg tablet 10 mg PO DAILY 07/12/24 01/19/25 Previous Rx's ?Medication ?Instructions ?Recorded prednisone 20 mg tablet 20 mg PO DAILY #7 tabs 07/05/24 clindamycin HCl 300 mg capsule 300 mg PO Q6H #40 caps 01/19/25 levofloxacin 250 mg tablet 250 mg PO DAILY 10 days #11 tabs 01/19/25 Allergies Allergy/AdvReac Type Severity Reaction Status Date / Time doxycycline Allergy Unknown Verified 01/19/25 16:57 atorvastatin (From Lipitor) Allergy Verified 01/19/25 16:57 hydrocodone Allergy Verified 01/19/25 16:57 lisinopril Allergy Verified 01/19/25 16:57 metoclopramide (From Reglan) Allergy Verified 01/19/25 16:57 omeprazole Allergy Verified 01/19/25 16:57 diphenhydramine AdvReac Unknown Agitated Verified 01/19/25 16:57 Review of Systems Status of ROS: Reports: unobtainable due to medical condition [facility] Medical History Frailty syndrome in geriatric patient ?R54 - Age-related physical debility (ICD-10) Coronary artery disease ?I25.10 - Atherosclerotic heart disease of [place] coronary artery without angina pectoris (ICD-10) Recurrent UTI ?N39.0 - Urinary tract infection, site not specified (ICD-10) Secondary hyperparathyroidism (of renal origin) ?N25.81 - Secondary hyperparathyroidism of renal origin (ICD-10) Pneumonia due to COVID-19 virus ?U07.1 - COVID-19 (ICD-10) ?J12.82 - Pneumonia due to coronavirus disease 2019 (ICD-10) Severe obesity ?E66.01 - Morbid (severe) obesity due to excess calories (ICD-10) Mobitz type 1 second degree AV block ?I44.1 - Atrioventricular block, second degree (ICD-10) Calculus of gallbladder without cholecystitis ?K80.20 - Calculus of gallbladder without cholecystitis without obstruction (ICD-10) Anemia of chronic renal failure ?N18.9 - Chronic kidney disease, unspecified (ICD-10) ?D63.1 - Anemia in chronic kidney disease (ICD-10) Allergic rhinitis ?J30.9 - Allergic rhinitis, unspecified (ICD-10) DVT (deep venous thrombosis) ?I82.409 - Acute embolism and thrombosis of unspecified deep veins of unspecified lower extremity (ICD-10) Hypothyroidism ?E03.9 - Hypothyroidism, unspecified (ICD-10) Pulmonary emphysema ?J43.9 - Emphysema, unspecified (ICD-10) Obstructive sleep apnea ?G47.33 - Obstructive sleep apnea (adult) (pediatric) (ICD-10) Colon polyp ?K63.5 - Polyp of colon (ICD-10) Detached retina, left ?H33.22 - Serous retinal detachment, left eye (ICD-10) GERD with esophagitis ?K21.00 - Gastro-esophageal reflux disease with esophagitis, without bleeding (ICD-10) Hypertension ?I10 - Essential (primary) hypertension (ICD-10) Diabetic foot ulcer ?E11.621 - Type 2 diabetes mellitus with foot ulcer (ICD-10) ?L97.509 - Non-pressure chronic ulcer of other part of unspecified foot with unspecified severity (ICD-10) Charcot foot due to diabetes mellitus ?E11.610 - Type 2 diabetes mellitus with diabetic neuropathic arthropathy (ICD-10) Pulmonary asbestosis ?J61 - Pneumoconiosis due to asbestos and other mineral fibers (ICD-10) Myocardial infarction ?I21.9 - Acute myocardial infarction, unspecified (ICD-10) Hypercholesterolemia ?E78.00 - Pure hypercholesterolemia, unspecified (ICD-10) End stage renal disease on dialysis ?N18.6 - End stage renal disease (ICD-10) ?Z99.2 - Dependence on renal dialysis (ICD-10) DM (diabetes mellitus), type 2 ?E11.9 - Type 2 diabetes mellitus without complications (ICD-10) COPD (chronic obstructive pulmonary disease) ?J44.9 - Chronic obstructive pulmonary disease, unspecified (ICD-10) Surgical History S/P ORIF (open reduction internal fixation) fracture ?Z98.890 - Other specified postprocedural states (ICD-10) ?Z87.81 - Personal history of (healed) traumatic fracture (ICD-10) S/P CABG x 4 ?Z95.1 - Presence of aortocoronary bypass graft (ICD-10) Family History Brother Leukemia Mother Oral cancer Father Alzheimers disease Social History Narrative: 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 What is your current living situation?: I presently have a place to live Problems where you live: no known problems Problems where you live details: n/a In the past 12 months, utilities in danger of being shut off: no In past 12 months, lack of transportation kept you from medical appts, meetings, work, or getting things needed for daily living: no In the past 12 mos, have been you worried that your food would run out before you had money to buy more?: never true In the past 12 mos, the food you bought just didn't last and you didn't have money to buy more?: never true Smoking Status: Former smoker Do you use any of these nicotine containing products: None Second hand tobacco smoke exposure: No How often do you have a drink containing alcohol: 2-4 times a month How often do you have six or more drinks on one occasion: Never AUDIT-C Alcohol total score: 2 Non-prescribed substance use: denies use Non-prescribed substance use details: Uses CBD liquid for pain and itching How often does anyone, including family, friends and others, physically hurt you: never How often does anyone, including family, friends and others, insult or talk down to you: never How often does anyone, including family, friends and others, threaten you with harm: never How often does anyone, including family, friends and others, scream or curse at you: never service: No Exam Narrative: Exam Narrative: Vital signs reviewed In general, alert, nontoxic elderly male. He is pleasant and conversant. Head: Normocephalic, atraumatic. Eyes: Sclera clear. Pupils equal and reactive. ENT: Mucous membranes moist. Abdomen: Soft, nontender to palpation. Extremities: Both lower extremities have dressings on them. I did not remove any of the dressings on the right. On the left, there is a small area of erythema just distal to the knee laterally, and a faint suggestion of a line of erythema that runs down the leg. There is no other significant erythema noted on calf, he does have skin changes consistent with venous stasis. Palpation of the calf on that side does show significant firmness, this does not seem to represent induration, there is no erythema or warmth overlying this area at all. Compartments are otherwise soft. His did not want me to fully remove the dressing on his foot as she had just put it on, but I was able to evaluate the sole of his foot, which seems slightly more erythematous in the mid foot compared to the heel. He does not have any tenderness or fluctuance, but sensation is not great in this area. The area of the old hematoma had a dressing in place with specialized wound care materials given to her by her [facility]. This does not appear to be significantly erythematous and there is no purulence drainage. The chronic wounds on his foot were not directly evaluated, his looks at these daily and again prefer that I did not remove the dressing. She does tell me that these look stable aside from the redness that she feels is new on his foot. The edema that was present last time I saw him is improved. Neurologic: Alert, conversant. Speech fluent, face symmetric. Moves all extremities equally. Skin: Warm, dry well perfused. Affect: Normal. Const: Vital Signs, click to edit/add: Vital Signs - 24 hr 01/19/25 17:02 Temperature 96.9 F L Pulse Rate [Pulse Oximeter] 82 Respiratory Rate 20 Blood Pressure [Ri ght Upper Arm] 131/68 Pulse Oximetry 96 Oxygen Delivery Me thod Room Air Course Course ED Course: Patient presents with chronic lower extremity wounds, history of diabetes, coronary artery disease, dialysis, obviously high risk for infection. His I think knows his wound quite well and the fact that she is concerned about new redness I think warrants evaluation. Will get a CT scan today to evaluate the calf muscle as well as the foot, look for osteomyelitis or abscess I reviewed his labs, his CRP is a little bit elevated but otherwise labs are fairly reassuring. Lactate is 0.9, white blood cell count is normal. I reviewed the CT scan report, there is mention of osteomyelitis of the toe and then he has a fluid collection in the calf which they note could be abscess or seroma. Given that he has no overlying erythema or tenderness, no systemic concerning symptoms and reassuring labs, I think that is more likely to be seroma. Discussed all this with his , she notes that the osteomyelitis is a known thing, chronic and to take care but would involve amputating his foot which they do not want to do. There is this redness which she feels is new. I talked with Dr. Philippe, he felt that as long as the wound otherwise looks okay, which his says it does, would be reasonable to treat this as an outpatient. He has an upgoing appointment at [facility], discussed with his that I would recommend she touch base with them and let them know what is going on so that they can see him sooner if he is not improving. Return any time if he is worse, has fevers, vomiting, chills, purulent drainage or significant increase in redness. I prescribed clindamycin and Levaquin, renal dosing. Vital Signs Vital signs: Initial Vital Signs Temperature 96.9 F L 01/19/25 17:02 Temperature Source Temporal Artery Scan 01/19/25 17:02 Pulse Rate 82 01/19/25 17:02 Respiratory Rate 20 01/19/25 17:02 Blood Pressure 131/68 01/19/25 17:02 Blood Pressure Mean 89 01/19/25 17:02 Pulse Oximetry 96 01/19/25 17:02 Oxygen Delivery Method Room Air 01/19/25 17:02 Vital Signs Temperature 96.9 F L 01/19/25 17:02 Pulse Rate 82 01/19/25 17:02 Respiratory Rate 20 01/19/25 17:02 Blood Pressure 131/68 01/19/25 17:02 Pulse Oximetry 96 01/19/25 17:02 Oxygen Delivery Method Room Air 01/19/25 17:02 Temperature 96.9 F L 01/19/25 17:02 Pulse Rate 82 01/19/25 17:02 Respiratory Rate 20 01/19/25 17:02 Blood Pressure 131/68 01/19/25 17:02 Pulse Oximetry 96 01/19/25 17:02 Oxygen Delivery Method Room Air 01/19/25 17:02 Medical Decision Making Lab Data Lab results reviewed: Yes I reviewed the patient's lab results Labs: Lab Results 01/19/25 Range/Units 17:30 WBC 8.05 (4.50-11.00) K/uL RBC 3.82 L (4.30-5.90) m/uL Hgb 11.4 L (13.5-17.5) gm/dL Hct 36.7 L (37.0-53.0) % MCV 96 (80-100) fL MCH 30 (26-34) pg MCHC 31 L (32-36) gm/dL RDW Coeff of Jordy 17.0 H (11.5-15.5) % Plt Count 213 (140-440) K/uL Neut % (Auto) 79.1 H (42.0-72.0) % Lymph % (Auto) 6.2 L (20-44) % Calhoun % (Auto) 10.8 (0.0-11.0) % Eos % (Auto) 3.2 (0.0-7.0) % Baso % (Auto) 0.6 (0.0-3.0) % Neut # (Auto) 6.40 (1.7-7.0) K/uL Lymph # (Auto) 0.50 L (0.90-2.90) K/uL Calhoun # (Auto) 0.90 (0.00-0.90) K/UL Eos # (Auto) 0.26 (0.00-0.50) K/uL Baso # (Auto) 0.05 (0.00-0.30) K/uL Abs Immat Gran (auto) 0.01 (0.00-0.30) K/uL Imm/Tot Granulo (auto) 0.1 % Sodium 130 L (135-149) mmol/L Potassium 4.8 (3.6-5.1) mmol/L Chloride 94 L (96-114) mmol/L Carbon Dioxide 25 (20-32) mmol/L Anion Gap 11 (7-15) mEq/L BUN 55 H (7-30) mg/dL Creatinine 4.9 H (0.5-1.5) mg/dL Estimated GFR 11 ml/min Glucose 183 H (60-115) mg/dL Lactate 0.9 (0.5-1.9) mmol/L Calcium 10.1 (8.4-10.6) mg/dL C-Reactive Protein 4.7 H (0.5-1.0) mg/dL Imaging Data CT- Other: Attestation: I have reviewed the pertinent imaging results. Radiologist's impression: Patient: Korey Mackay MR#: [id number] : 1940 Acct:[id number] Loc: ED Service Date: 01/19/[address]: Ordering Physician: Kristie Box M.D. Date of Service: 01/19/25 Procedure(s): CT lower leg LT wo con Accession Number(s): [id number] cc: Kristie Box M.D.; Anna Marie Oglesby D.O.~ For Patients: As a result of the Cures Act, medical imaging exams and procedure reports are released immediately into your electronic medical record. You may view this report before your referring provider. If you have questions, please contact your health care provider. Indication: CHRONIC WOUNDS, ? OSTEO IN FOOT, DIFFUSELY FIRM CALF AREA Technique: CT left lower extremity without IV contrast Comparison: Left tibia/fibula radiograph on December 09, 2024 Findings: Motion degraded exam No acute fracture or malalignment. Amputation of the left 1st toe at the level of the interphalangeal joint. There are some regions of sclerosis and lysis at the head of the 1st metatarsal, suggestive of osteomyelitis with overlying soft tissue defect. Severe degenerative changes throughout the midfoot with regions of osseous fusion. Severe osteoarthritic degenerative changes of the medial patellofemoral compartment. Benign-appearing periosteal reaction of the proximal tibia and fibula. Diffuse osteopenia. Suspected sequela of remote, healed proximal tibia and fibula fractures. No knee or ankle effusion. Likely tiny partially imaged Romano`s cyst. Thick-walled low-density fluid collection in the soft tissues of the left lower extremity along the medial aspect of the proximal tibia measuring approximally 2.7 centimeters AP by 10 centimeters craniocaudal (series number 4, image 60; series number 7, image 77), favored to represent an abscess/seroma. There is kirc-cw-dibxyoha soft tissue edema throughout the left lower extremity. Soft tissue defect/ulcer seen along the distal aspect of the fibula without underlying gas or fluid collection. Severe calcific atherosclerosis. Impression: 1. Amputation of the left 1st toe at the level of the interphalangeal joint. There are some regions of sclerosis and lysis at the head of the 1st metatarsal at the amputation site, suggestive of osteomyelitis with overlying soft tissue defect. 2. Thick-walled low-density fluid collection in the soft tissues of the left lower extremity along the medial aspect of the proximal tibia measuring approximally 2.7 by 10.0 centimeters, favored to represent an abscess/seroma. Additional incidental findings as detailed above. 3. Additional incidental findings as detailed above. Please note that all CT scans at this facility use dose modulation, iterative reconstruction, and/or weight-based dosing when appropriate to reduce radiation dose to as low as reasonably achievable. Dictated by Cristian Atkinson MD @ 01/19/2025 6:46:27 PM Discharge Plan Discharge Clinical Impression: Cellulitis, Chronic osteomyelitis involving ankle and foot, Seroma, ESRD (end stage renal disease) on dialysis Patient Disposition: Home, Self-Care Condition: Stable Instructions: Cellulitis (ED), Osteomyelitis (ED) Additional Instructions: Take clindamycin and Levaquin as prescribed. Please check in with your wound clinic tomorrow and let them know what is going on, they may not need to see him if he is stable to improving, but if you have any concerns about how the wound is looking, if there is new drainage or worsening redness, please make sure that the wound clinic sees him more urgently. If at any time he seems acutely ill, has fevers, chills, or other new symptoms, return to the ER for re-evaluation. Prescriptions: New clindamycin HCl 300 mg capsule 300 mg PO Q6H Qty: 40 0RF levofloxacin 250 mg tablet 250 mg PO DAILY 10 Days Qty: 11 0RF Rx Instructions: Take 2 tablets (500 mg) on day one, then 1 tablet daily No Action insulin aspart U-100 [Novolog FlexPen U-100 Insulin] 100 unit/mL (3 mL) insulin pen 5 unit subcut TIDWM guaifenesin 100 mg/5 mL liquid 100 mg PO Q4H PRN (Reason: coughing) montelukast [Singulair] 10 mg tablet 10 mg PO HS nitroglycerin [Nitrostat] 0.4 mg tablet, sublingual 0.4 mg sublingual Q5M PRN Rx Instructions: do not exceed 3 doses per episode aspirin 81 mg capsule 81 mg PO DAILY loratadine [Claritin] 10 mg tablet 10 mg PO DAILY coenzyme Q10 [Co Q-10] 100 mg capsule 100 mg PO DAILY senna 8.6 mg capsule 8.6 - 17.2 mg PO BID acetaminophen [Tylenol Arthritis Pain] 650 mg tablet extended release 650 mg PO Q8H PRN insulin glargine [Lantus Solostar U-100 Insulin] 100 unit/mL (3 mL) insulin pen 18 unit subcut HS albuterol sulfate [Ventolin HFA] 90 mcg/actuation HFA aerosol inhaler 2 inh inhalation Q4H PRN pantoprazole 40 mg tablet,delayed release (DR/EC) 40 mg PO DAILY pravastatin 80 mg tablet 80 mg PO HS fluticasone propionate [24 Hour Allergy Relief] 50 mcg/actuation spray,suspension 1 spray intranasal DAILY PRN Rx Instructions: administer into each nostril cyclosporine [Restasis] 0.05 % dropperette 1 drp ophthalmic (eye) Q12H Dialyvite [id number] ys-gi-swx-mg tablet 1 tab PO BID Rx Instructions: administer with a meal osatc-ou-8-hvr-mej-sttxahn-ast [MegaRed Jackson-3 Krill Oil] 1,000-230-60 mg capsule 1 cap PO DAILY cholecalciferol (vitamin D3) 50 mcg (2,000 unit) capsule 50 mcg PO DAILY vitamin E 268 mg (400 unit) capsule 268 mg PO DAILY prednisone 20 mg tablet 20 mg PO DAILY Qty: 7 0RF clopidogrel 75 mg tablet 75 mg PO DAILY Analgesic Jefferson (m.salic-menth) 15-10 % cream 1 applic topical TID PRN diphenhydramine HCl [Aler-Cap] 25 mg capsule 25 mg PO Q4H PRN fluticasone propion-salmeterol [Wixela Inhub] 100-50 mcg/dose blister with device 1 inh inhalation BID hydrocortisone 2.5 % cream 1 applic topical BID PRN levothyroxine 175 mcg capsule 175 mcg PO DAILY magnesium hydroxide [Dulcolax (magnesium hydroxide)] 400 mg/5 mL suspension 30 ml PO DAILY PRN tiotropium bromide [Spiriva with HandiHaler] 18 mcg capsule, w/inhalation device 1 cap inhalation DAILY Rx Instructions: puncture 1 cap using device; one dose = 2 inhalations midodrine 10 mg tablet 10 mg PO DAILY Patient Comments: [NO ORIGINAL SIG] Follow Up/Referrals: Anna Marie Oglesby DO [Primary Care Provider, Family Practice] Stand Alone Forms: [employer] Info Instructions
--- OUTSIDE RECORDS SUMMARY | 2025-01-19 17:24 | XMS_ITS ---
Author Organization [facility] Care Team Providers Care Passenger Service Agent Name Role Phone Sundeep John Unavailable Unavailable Allergies and adverse reactions Code CodeSystem Substance Reaction Severity StartDate Concern Status 7646 RXNORM Omeprazole Unknown 02/14/2021 active 6915 RXNORM Metoclopramide Unknown 02/14/2021 active 51098 RXNORM Lisinopril Unknown 02/14/2021 active Lipitor Unknown 02/14/2021 active Care Team Name Role Address Phone Organization Dates Sundeep John PCP [address] [facility] [address], [place], [address], [place] (Office): : [facility] 02/14/2021 - 02/28/2021 Immunizations Immunization Status Vaccine Details Vaccine Code CodeSystem Date Notes TB 2 Step Mantoux Skin Test completed tuberculin skin test; unspecified formulation lotNumber: [id number] expiry: 02/27/2022 Mfg: Per parmaceutical Given 0.1 ml Right Forearm intradermally Step 2 of Multi-step with next step required 98 CVX created date: 02/27/2021 consent date: 02/27/2021 administer ed date: 02/25/2021 Educated by raymundo on 02/27/2021 TB 2 Step Mantoux Skin Test completed tuberculin skin test; unspecified formulation lotNumber: [id number] expiry: 03/07/2022 Mfg: PAR pharmaceutical Given 0.1 [...] CodeSystem Concern Status 1 COVID-19 02/15/[address] active 2 END STAGE RENAL DISEASE 02/15/[address] active 3 OBESITY, UNSPECIFIED 02/15/[address] active 4 PNEUMONIA DUE TO CORONAVIRUS DISEASE 2019 02/15/[address] active 5 TYPE 2 DIABETES MELLITUS WITH DIABETIC NEUROPATHY, UNSPECIFIED 02/15/[address] active 6 UNSTEADINESS ON FEET 02/15/[address] active 7 MUSCLE WEAKNESS (GENERALIZED) 02/08/[address] active 8 NEED FOR ASSISTANCE WITH PERSONAL CARE 02/08/[address] active Reason for Referral No Reasons for Referral Entered Social History Social History Observation Description Start Date End Date Code Code System Current Smoking Status Tobacco smoking consumption unknown 804173247 SNOMED CT Sex Assigned At Male 1940 00532-0 [facility] Gender Identity Vital Signs Code Code System Vitals Name Values and Units Timing Information 8310-5 [facility] Body Temperature Value=98.0 Units= F 02/28/2021 95544-2 [facility] O2 % BldC Oximetry Value=96.0 Units= % 02/28/2021 2339-0 [facility] Blood Sugar Value=98.0 Units=mg/dL 02/28/2021 9279-1 [facility] Respiratory Rate Value=18.0 Units=/m in 02/27/2021 8462-4 [facility] Blood Pressure-Diastolic Value=54 Un its=mmHg 02/27/2021 8480-6 [facility] Blood Pressure-Systolic Phfma=504 Un its=mmHg 02/27/2021 8867-4 [facility] Heart rate Value=70.0 Units=/min 58062-3 [facility] Pain Level Value=0.0 02/27/2021 61580-1 [facility] Weight Opymm=313.7 Units=Lbs
[2025-01-19 17:40] LABS: Lactate Sepsis w/Reflex* 0.9 mmol/L (0.5-1.9)
[2025-01-19 17:43] LABS: Hematocrit 36.7 % (37.0-53.0); Hemoglobin* 11.4 gm/dL (13.5-17.5); Immature Granulocytes Abs Auto 0.01 K/uL (0.00-0.30); Immature Granulocytes Pct Auto 0.1 %; Lymphocytes Absolute Auto 0.50 K/uL (0.90-2.90); Mean Corpuscular HGB Conc 31 gm/dL (32-36); Mean Corpuscular Hemoglobin 30 pg (26-34); Mean Corpuscular Volume 96 fL (80-100); RDW Coefficient of Variation % 17.0 % (11.5-15.5); Red Blood Count 3.82 m/uL (4.30-5.90); White Blood Count* 8.05 K/uL (4.50-11.00)
[2025-01-19 17:50] LABS: Chloride* 94 mmol/L (96-114); Potassium* 4.8 mmol/L (3.6-5.1); Sodium* 130 mmol/L (135-149)
[2025-01-19 17:53] LABS: Anion Gap 11 mEq/L (7-15); Blood Urea Nitrogen* 55 mg/dL (7-30); Calcium* 10.1 mg/dL (8.4-10.6); Carbon Dioxide* 25 mmol/L (20-32); Creatinine* 4.9 mg/dL (0.5-1.5); Estimated Glomerular Filt Rate 11 ml/min; Glucose* 183 mg/dL (60-115)
[2025-01-19 18:12] LABS: Slide Review Reflex No
== END 2025-01-19 19:59 | disposition home or self-care (01) ==
PROVIDERS: Emergency Provider Emergency Medicine; PCP Family Medicine
DX: L03.116 Cellulitis of left lower limb (principal); M86.672 Other chronic osteomyelitis, left ankle and foot; T87.89 Other complications of amputation stump; E11.22 Type 2 diabetes mellitus with diabetic chronic kidney disease; I12.0 Hypertensive chronic kidney disease with stage 5 chronic kidney disease or end stage renal disease; N18.6 End stage renal disease; Z99.2 Dependence on renal dialysis; Z87.891 Personal history of nicotine dependence; Z79.4 Long term (current) use of insulin; Z89.422 Acquired absence of other left toe(s)
CPT/HCPCS: 36415; 73700; 80048; 83605; 85025; 86140; 99284

== ENCOUNTER 2025-03-19 01:13 | Emergency (ER) | payer MEDICARE, OTHER, SELFPAY ==
[2025-03-19] VITALS (9 sets, daily range): BP systolic 93–111; BP diastolic 35–72; PULSE 69–93; RESP 16; TEMP 36.2; O2SAT 97–99; BMI 24.6
--- NOTE | 2025-03-19 | CRLHL7_ITS ---
For Patients: As a result of the Century Cures Act, medical imaging exams and procedure reports are released immediately into your electronic medical record. You may view this report before your referring provider. If you have questions, please contact your health care provider. INDICATION: Syncope. TECHNIQUE: CT head without contrast. COMPARISON: 07/05/2024. FINDINGS: CSF spaces: Proportionate prominence of the ventricles and sulci, reflecting moderate diffuse parenchymal volume loss. Brain parenchyma: The spicer-white differentiation is maintained. Patchy white matter low attenuation changes, nonspecific but likely reflecting chronic small vessel ischemic disease. No evidence of intracranial hemorrhage, extra-axial collection, or midline shift. Atherosclerotic calcifications of the cavernous carotids and carotid siphons. Skull base and calvarium: The visualized paranasal sinuses and mastoid air cells demonstrate no acute or significant findings. Bilateral lens thinning. No skull fractures. IMPRESSION: No acute intracranial abnormality. Please note that all CT scans at this facility use dose modulation, iterative reconstruction, and/or weight-based dosing when appropriate to reduce radiation dose to as low as reasonably achievable. Dictated by Jey Sanchez MD @ 03/19/2025 3:16:18 AM (Electronically Signed)
--- NOTE | 2025-03-19 | CRLHL7_ITS ---
For Patients: As a result of the Cures Act, medical imaging exams and procedure reports are released immediately into your electronic medical record. You may view this report before your referring provider. If you have questions, please contact your health care provider. INDICATION: Cough, chest pain. TECHNIQUE: Chest 1 view. COMPARISON: 07/05/2024. FINDINGS: Cardiovascular and mediastinum: Stable cardiomegaly. Median sternotomy and right-sided cardiac conduction device, unchanged. Lungs and pleural spaces: Bilateral calcified granulomas, unchanged. Left retrocardiac opacities. No pneumothorax. Bones and soft tissues: Degenerative changes of the spine and shoulders. IMPRESSION: Left retrocardiac opacities, which may represent atelectasis, infiltrates, and/or effusion. Dictated by Jey Sanchez MD @ 03/19/2025 3:13:40 AM (Electronically Signed)
--- OUTSIDE RECORDS SUMMARY | 2025-03-19 02:19 | XMS_ITS | Encounter Summary ---
Author Organization [facility] Address [address] [place] [address] Phone Care Team Providers Care Assessment Analyst Name Role Phone Unavailable Primary Care Provider Unavailabl e Encounter Details Date Type Department Care Team (Late st Contact Info) Description 02/08/2025 Orders Only [facility] [place] [address] [place] [address] Darren Youssef MD [address] [place] [address] Social History Tobacco Use Types [...] Date/Time Associated Diagnosis Comments HD KINETICS Routine 02/08/2025 POST CHEMISTRY Routine 02/08/2025 IMMUNO CHEMISTRY Routine 02/08/2025 HEMATOLOGY Routine 02/08/2025 CHEMISTRY Routine 02/08/2025 [facility] Routine 02/08/2025 documented in this encounter Results * [facility] Results (02/08/2025) Pathologist [facility] spKt/V (Kelsie II) 1.04 [facility] eKt/V (Tattersall) 0.53 [facility] 02/08/2025 02/08/2025 [facility] Ordering Provider LAB BLOOD ORDERABLES Final Result Performing Organization Address [facility] Co de Phone Number [facility] Contact Performing lab Unknown, [place] * IMMUNO CHEMISTRY (02/08/2025) [facility] Hep B Surface Ag Negative Negative [facility] 02/08/2025 02/09/2025 1:3 1 PM CDT Narrative [facility] - 02/09/2025 Unless otherwise specified, test(s) performed at: [facility], [address] [place] [id number] CANOPY STRINGER: Rojas Kirkland M.D., Ph.D For any questions, please call customer service at FREQUENCY:MONTHLY Resulting Agency Comment Specimen source: Plasma Darren Youssef MD LAB BLOOD ORDERABLES Final Re sult Performing Organization Address [facility] de Phone Number [facility] See order comments or contact performing lab Unknown, [place] * (ABNORMAL) HD KINETICS (02/08/2025) [facility] % Urea Reduction 62(L) 65 - 80 % [facility] 02/08/2025 02/09/2025 9:1 6 AM CDT Narrative [facility] - 02/09/2025 Unless otherwise specified, test(s) performed at: [facility], [address] [place] [address], [place] [id number] CANOPY STRINGER: Rojas Kirkland M.D., Ph.D For any questions, please call customer service at FREQUENCY:MONTHLY Resulting Agency Comment Specimen source: Plasma Darren Youssef MD LAB BLOOD ORDERABLES Final Re sult Performing Organization Address [facility]/[place] de Phone Number [facility] See order comments or contact performing lab Unknown, [place] * (ABNORMAL) [facility] (02/08/2025) BUN 76(H) 6 - 19 mg/dL [facility] Creatinine 5.25(H) 0.60 - 1.30 mg/dL [facility] BUN/Creatinine Ratio 14.5 10.0 - 20.0 [facility] Sodium 127(L) 136 - 145 mEq/L [facility] Potassium 5.5(H) 3.5 - 5.1 mEq/L [facility] Chloride 91(L) 96 - 108 mEq/L [facility] Bicarbonate (CO2) 22 20 - 31 mEq/L [facility] Calcium 9.6 8.7 - 10.4 mg/dL [facility] Comment: Please note change in reference range. Corrected Calcium 9.8 8.7 - 10.4 mg/dL [facility] Comment: Corrected Calcium is not equivalent to measured Ionized Calcium. Phosphorus 2.9 2.6 - 4.5 mg/dL [facility] Calcium Phosphorus Product 28 0 - 54 [facility] Calcium Phosporus Product, Cor 28 0 - 54 [facility] Total Protein 7.2 6.0 - 8.5 g/dL [facility] Albumin 3.7 3.5 - 5.2 g/dL [facility] Globulin, Total 3.5 2.0 - 4.0 g/dL [facility] A/G Ratio 1.1 1.0 - 2.0 [facility] Iron 55 45 - 160 mcg/dL [facility] UIBC 153(L) 155 - 355 mcg/dL [facility] TIBC 208 185 - 515 mcg/dL [facility] Iron Saturation (TSat) 26 20 - 55 % [facility] 02/08/2025 02/09/2025 11: 13 AM CDT Narrative [facility] - 02/09/2025 Unless otherwise specified, test(s) performed at: [facility], [address] [place] [address], [place] [address] CANOPY STRINGER: Rojas Kirkland M.D., Ph.D For any questions, please call customer service at FREQUENCY:MONTHLY Resulting Agency Comment Specimen source: Serum us Darren Youssef MD LAB BLOOD ORDERABLES Final Re sult [facility] See order comments or contact performing lab Unknown, [place] * (ABNORMAL) HEMATOLOGY (02/08/2025) Neutrophils 69.1 40.0 - 75.0 % [facility] Lymphocytes Relative 12.1(L) 19.0 - 48.0 % [facility] Monocytes 9.1 3.0 - 10.0 % [facility] Eosinophils Relative 4.2 0.0 - 7.0 % [facility] Basophils Relative 0.5 0.0 - 1.5 % [facility] COURTNEY 5.0(H) 0.0 - 4.0 % [facility] WBC 5.51 4.80 - 10.80 1000/mcL [facility] RBC 3.31(L) 4.70 - 6.10 mill/mcL [facility] Hematocrit 31.7(L) 42.0 - 52.0 % [facility] MCV 96 80 - 100 fl [facility] MCH 30.5 27.0 - 31.0 pg [facility] MCHC 31.9 30.0 - 36.0 g/dL [facility] RDW 17.2(H) 11.5 - 14.5 % [facility] Hemoglobin 10.1(L) 14.0 - 18.0 g/dL [facility] Hemoglobin x 3 30.3(L) 42.0 - 54.0 % [facility] Platelets 138 130 - 400 1000/mcL [facility] 02/08/2025 02/09/2025 10: 55 AM CDT Narrative [facility] - 02/09/2025 Unless otherwise specified, test(s) performed at: [facility], [address] [place] [address], [place] [address] CANOPY STRINGER: Rojas Kirkland M.D., Ph.D For any questions, please call customer service at FREQUENCY:MONTHLY Resulting Agency Comment Specimen source: Blood us Darren Youssef MD LAB BLOOD ORDERABLES Final Re sult [facility] See order comments or contact performing lab Unknown, [place] * (ABNORMAL) POST CHEMISTRY (02/08/2025) BUN Post Dialysis 29(H) 6 - 19 mg/dL [facility] 02/08/2025 02/09/2025 9:1 6 AM CDT Narrative [facility] - 02/09/2025 Unless otherwise specified, test(s) performed at: [facility], [address] [place] [address], [place] [address] CANOPY STRINGER: Rojas Kirkland M.D., Ph.D For any questions, please call customer service at FREQUENCY:MONTHLY Resulting Agency Comment Specimen source: Plasma us Darren Youssef MD LAB BLOOD ORDERABLES Final Re sult [facility] See order comments or contact performing lab Unknown, [place] documented in this encounter Visit Diagnoses Not on filedocumented in this encounter
--- OUTSIDE RECORDS SUMMARY | 2025-03-19 02:20 | XMS_ITS | Encounter Summary ---
Author Organization [facility] Address [address] [place] [address] Phone Care Team Providers Care Ship Steward Name Role Phone Unavailable Primary Care Provider Unavailabl e Encounter Details Date Type Department Care Team (Late st Contact Info) Description 02/22/2025 Orders Only [facility] [place] [address] [facility] [address] [place] [address] Darren Youssef MD [address] [place] [address] Social History Tobacco Use Types [...] Priority Date/Time Associated Diagnosis Comments HEMATOLOGY Routine 02/22/2025 documented in this encounter Results * (ABNORMAL) HEMATOLOGY (02/22/2025) Hemoglobin 11.0(L) 14.0 - 18.0 g/dL [facility] Hemoglobin x 3 33.0(L) 42.0 - 54.0 % [facility] 02/22/2025 02/23/2025 2:3 4 AM CDT Narrative [facility] - 02/23/2025 Unless otherwise specified, test(s) performed at: [facility], [address] [place] [address], [place] [address] TILE GRADER: Rojas Kirkland M.D., Ph.D For any questions, please call customer service at FREQUENCY:OTHER Resulting Agency Comment Specimen source: Blood us Darren Youssef MD LAB BLOOD ORDERABLES Final Re sult [facility] See order comments or contact performing lab Unknown, [place] documented in this encounter Visit Diagnoses Not on filedocumented in this encounter
--- OUTSIDE RECORDS SUMMARY | 2025-03-19 02:20 | XMS_ITS | Encounter Summary ---
Author Organization [facility] Address [address] [place] [address] Phone Care Team Providers Care International Trade Compliance Manager Name Role Phone Unavailable Primary Care Provider Unavailabl e Encounter Details Date Type Department Care Team (Late st Contact Info) Description 02/13/2025 Orders Only [facility] [place] [address] [place] [address] Darren Youssef MD [address] [place] [address] Social History Tobacco Use Types [...] Date/Time Associated Diagnosis Comments HD KINETICS Routine 02/13/2025 POST CHEMISTRY Routine 02/13/2025 CHEMISTRY Routine 02/13/2025 [facility] Routine 02/13/2025 documented in this encounter Results * [facility] Results (02/13/2025) WSTDKT/V 2.5 [facility] PCR 85.29 [facility] eNPCR 1.21 [facility] eKdrt/V 1.38 [facility] spKt/V (Daugirdas II) 1.63 [facility] eKt/V Gotch 1.38 [facility] e Outing nPCR_HD 1.28 [facility] spKt/V Gotch 1.66 [facility] eKt/V ([place]attersall) 1.38 [facility] 02/13/2025 02/13/2025 [facility] [place] Ordering Provider LAB BLOOD ORDERABLES Final Result [facility] Contact Performing lab Unknown, [place] * HD KINETICS (02/13/2025) % Urea Reduction 75 65 - 80 % [facility] 02/13/2025 02/14/2025 2:2 8 AM CDT Narrative Resulting Agency Comment Specimen source: Plasma Darren Youssef MD LAB BLOOD ORDERABLES Final Re sult Performing Organization Address City/[facility]/ZIP Co de Phone Number [facility] See order comments or contact performing lab Unknown, [place] * (ABNORMAL) POST CHEMISTRY (02/13/2025) BUN Post Dialysis 23(H) 6 - 19 mg/dL [facility] 02/13/2025 02/14/2025 2:2 8 AM CDT Narrative [facility] - 02/14/2025 Unless otherwise specified, test(s) performed at: [facility], [address] [place] [address], [place] [address] PREVENTIVE MAINTENANCE COORDINATOR: Rojas Kirkland M.D., Ph.D For any questions, please call customer service at FREQUENCY:OTHER Resulting Agency Comment Specimen source: Plasma Darren Youssef MD LAB BLOOD ORDERABLES Final Re sult [facility] See order comments or contact performing lab Unknown, [place] * (ABNORMAL) [facility] (02/13/2025) BUN 91(H) 6 - 19 mg/dL [facility] 02/13/2025 02/14/2025 2:4 0 AM CDT Narrative [facility] - 02/14/2025 Unless otherwise specified, test(s) performed at: [facility], [address] [place] [address], [place] [address] PREVENTIVE MAINTENANCE COORDINATOR: Rojas Kirkland M.D., Ph.D For any questions, please call customer service at FREQUENCY:OTHER Resulting Agency Comment Specimen source: Serum us Darren Youssef MD LAB BLOOD ORDERABLES Final Re sult [facility] See order comments or contact performing lab Unknown, [place] documented in this encounter Visit Diagnoses Not on filedocumented in this encounter
--- OUTSIDE RECORDS SUMMARY | 2025-03-19 02:20 | XMS_ITS | Encounter Summary ---
Author Organization [facility] Address [address] [place] [address] Phone Care Team Providers Care Assistant Passenger Locomotive Engineer Name Role Phone Unavailable Primary Care Provider Unavailabl e Encounter Details Date Type Department Care Team (Late st Contact Info) Description 06/20/2024 TCM in Dialysis Clinic [facility] [place] [address] [place] [address] Darren Tran MD [address] [place] [address] Social History Tobacco Use Types Packs/Day Years Used Date Smoking Tobacco: Never Assessed Sex and Gender Information Value Date Recorded Sex Assigned at Not on file Legal Sex Male 7:06 PM EDT Gender Identity Not on file Sexual Orientation Not on file documented as of this encounter Progress Notes * Darren Tran MD - 06/20/2024 12:00 AM CST Patient: Korey Mackay : 1940 Note Type: Dialysis TCM Service Date: 06/20/2024 The patient was seen for a [id number] visit as part of Transitional Care Management services. Attending Press Box Custodian: DARREN TRAN Dialysis Location: [facility] Schedule: Shift: 2 INTERACTIVE CONTACT [...] medication orders reviewed - no changes. [facility] albuterol sulfate 90 mcg/actuation HFA [...] capsule by mouth once a day. Dialyvite [id number] bs-si-vis-mg tablet Take 1 tablet by mouth every [...] 97.4*F Current Dialysis Vitals BP Sit: 151/69 [place] DRIVER/MONITOR: -160/220 Pulse: 69 CARE COORDINATION Post-discharge follow-up appointments reviewed with the patient. EDUCATION Education relevant to the discharge diagnosis provided to the patient or caregiver IMPRESSION & PLAN COMMENTS: Stable after hospital stay s/p partial amputation of toe Lower EDW Lung mass vs inflammatory change, repeat CT 2 months by PCP suggested. PCP post- discharge visit completed VISIT DIAGNOSES CPT Code 56867 - High complexity, seen 8-14 days post discharge or moderate complexity, seen [id number] days of discharge. 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
--- OUTSIDE RECORDS SUMMARY | 2025-03-19 02:20 | XMS_ITS | Encounter Summary ---
Author Organization [facility] Address [address] [place] [address] Phone Care Team Providers Care Printing Technician Name Role Phone Unavailable Primary Care Provider Unavailabl e Encounter Details Date Type Department Care Team (Late st Contact Info) Description 03/17/2025 Treatment [facility] [address] [place] [address] Tacho Hicks APRN-CNP [address] [place] [address] End stage renal disease; Dependence [...] Dialysis Note - Tacho Hicks APRN-CNP - 03/17/2025 12:00 AM CDT Patient: Korey Mackay : 1940 Note Type: Dialysis Rounds-Comp Service Date: 03/17/2025 This patient was personally seen [id number] for a complete visit as part of routine monthly dialysis care for end stage renal disease. Attending Requisition Approver: ANA TRAN Dialysis Location: [facility] Schedule: Shift: 2 OVERVIEW COMMENTS: 03/06/25 MD: Says he thinks he looks like a prisoner of war, says we are slowing killing me but his chimes in and says we are doing all we can and he just needs to work on eating better again. says he is relatively stable, did actually walk yesterday and had a shower with his nurse aid, this was more than he has been able to do. Might go to [place] for a week if they can do it so he can go one last time and to put the house up for sale then, but she knows that they won't be able to go for the winter. 01/11/25 MD: He is more sleepy the [...] pain or other reasons. JOSE ALFREDO SUBJECTIVE: PARTS COUNTERMAN 03/17/25: Seen on HD. at chairside. Pt denies any complaints or concerns with HD today. notes pt will have a right index finger, partial amputation in a couple of weeks. Overall pt is reaching edw, no concerns with access. is hopeful pt would be able to travel down to [place] in a few months. HOME MEDICATIONS Medications reviewed. [facility] albuterol sulfate 90 mcg/actuation [...] capsule by mouth once a day. Dialyvite [id number] iv-bf-xes-mg tablet Take 1 tablet by mouth every [...] Unknown DIALYSIS PRESCRIPTION Treatment Data Treatment Date: 03/17/2025 started at: 11:36 AM Dialysate / Machine Temp (prescribed): 37.0*C Dialysate / Machine Temp (actual): 37.0*C BFR (prescribed): 450 BFR (actual): 450 DFR (prescribed): Manual 800 DFR (actual): 800 Prescribed Time: 03:30 EDW (kg): 75.2 Dialyzer: 180NRe Optiflux Dialysate: 3.0 K, 2.5 Ca, 1.0 Mg, 100 Dextrose (G3251) Sodium: 135 Bicarb: 30 Pre Dialysis Vitals Pre BP Sit: 146/67 Pre Wt (kg): 79.6 EDW Deviation (kg): 4.4 Temp: 97.8*F Current Dialysis Vitals BP Sit: 123/62 AP/PAPER COATING MACHINE OPERATOR: 194/218 Pulse: 69 TREATMENT MEDICATIONS ORDERS Iron Sucrose (Venofer) 50 mg IVP 1X Week During Dialysis 12/30/2024 - 12/29/2025 BP AND FLUID ASSESSMENT EDW appropriate. COMMENTS: Anishrine for BP support Post BP Sit 99/45 - 03/15/2025 103/49 - 03/13/2025 126/59 - 03/10/2025 Post Wt (kg) 75.7 - 03/15/2025 75.9 - 03/13/2025 72.1 - 03/10/2025 EDW (kg) 75.2 - 03/15/2025 75.2 - 03/13/2025 75.2 - 03/10/2025 Deviation (kg) 0.5 - 03/15/2025 0.7 - 03/13/2025 -3.1 - 03/10/2025 ADEQUACY ASSESSMENT spKt/V (Daugirdas II) 1.60 (03/08/25) 1.63 (02/13/25) 1.04 (02/08/25) eKdrt/V 1.39 (03/08/25) 1.38 (02/13/25) 1.26 (01/11/25) % Urea Reduction 74 (03/08/25) 75 (02/13/25) 62 (02/08/25) BUN 76 (03/08/25) 91 (02/13/25) 76 (02/08/25) BUN Post Dialysis 20 (03/08/25) 23 (02/13/25) 29 (02/08/25) Creatinine 5.96 (03/08/25) 5.25 (02/08/25) 6.05 (01/11/25) Bicarbonate (CO2) 23 (03/08/25) 22 (02/08/25) 26 (01/11/25) Sodium 131 (03/08/25) 127 (02/08/25) 132 (01/11/25) Target met. Prescription compliance acceptable. Missed Treatments 0 - Last 30 days 0 - Last 60 days ACCESS ASSESSMENT Vascular access examined. 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 He had fistulagram in October 2024 with angioplasty of 2 stenoses AVFistula Standard Left Forearm Active (In Use) - 10/19/2020 Placed - Unknown Access Flow 1010 (03/10/25) 898 (02/10/25) 850 (01/13/25) ANEMIA ASSESSMENT Hemoglobin 10.4 (03/15/25) 12.0 (03/08/25) 11.5 (03/01/25) Iron Saturation (TSat) 20 (03/08/25) 26 (02/08/25) 18 (01/11/25) Ferritin 1,306 (01/11/25) 1,106 (10/17/24) 873 (09/12/24) Iron 42 (03/08/25) 55 (02/08/25) 30 (01/11/25) TIBC 207 (03/08/25) 208 (02/08/25) 164 (01/11/25) MCV 96 (03/08/25) 96 (02/08/25) 101 (01/11/25) Platelets 175 (03/08/25) 138 (02/08/25) 204 (01/11/25) Anemia targets met. Hemoglobin at target. COMMENTS: Hold MISTY with Hgb ?11 BMM ASSESSMENT Calcium 9.6 03/08/25 9.6 02/08/25 9.9 01/11/25 Corrected Calcium 9.8 03/08/25 9.8 02/08/25 10.2 01/11/25 Phosphorus 3.8 03/08/25 2.9 02/08/25 2.6 01/11/25 Calcium Phosphorus Product 36 03/08/25 28 02/08/25 26 01/11/25 PTH 41 01/11/25 221 10/17/24 189 09/12/24 Vitamin D, 25-OH, Total 56.9 04/13/24 Magnesium 2.1 09/12/24 1.7 07/13/24 1.9 04/13/24 Alkaline Phosphatase 104 07/13/24 115 04/13/24 Aluminum 8 04/13/24 PTH low. Phosphorus controlled. Calcium controlled. Bone and mineral metabolism parameters reviewed. NUTRITION ASSESSMENT Albumin 3.8 03/08/25 3.7 02/08/25 3.6 01/11/25 Potassium 3.9 03/08/25 5.5 02/08/25 3.7 01/11/25 eNPCR 1.24 03/08/25 1.21 02/13/25 1.09 01/11/25 Albumin not at goal. Potassium controlled. TRANSPLANT STATUS COMMENT COMMENTS: Patient not a candidate for transplant PHYSICAL EXAM Exam performed. Vital Signs Reviewed. Lungs - Clear. CV - Blood pressure noted. CV - RRR. COMMENTS: Trace edema stable Wearing boot; partial amputation [place] VISIT DIAGNOSES N18.6 End stage renal disease Z99.2 Dependence on renal dialysis ADDITIONAL LABS WBC 6.36 (03/08/25) 5.51 (02/08/25) 10.47 (01/11/25) Hepatitis B Surface Ab 26 (04/13/24) ADDITIONAL COMMENT COMMENTS: Monitor closely. Frail and likely nearing end of life. Hospice agency identified when time by who continues to support him. He continues to want to do dialysis at this time. Signed by: TACHO HICKS APRN-CNP on 03/17/2025 at 12:30:59 PM Transcribed by: TACHO HICKS APRN-CNP on 03/17/2025 at 12:30:59 PM documented in this encounter Plan of Treatment Not on file documented as of this encounter Visit Diagnoses Diagnosis End stage renal disease Dependence on renal dialysis documented in this encounter
--- OUTSIDE RECORDS SUMMARY | 2025-03-19 02:20 | XMS_ITS | Encounter Summary ---
Author Organization [facility] Address [address] [place] [address] Phone Care Team Providers Care Bdr Name Role Phone Unavailable Primary Care Provider Unavailabl e Encounter Details Date Type Department Care Team (Late st Contact Info) Description 02/10/2025 Treatment [facility] [place] [address] [place] [address] Tacho Hicks APRN-CNP [address] [place] [address] End stage renal disease; Dependence [...] Dialysis Note - Tacho Hicks APRN-CNP - 02/10/2025 12:00 AM CDT Patient: Korey Mackay : 1940 Note Type: Dialysis Rounds-Comp Service Date: 02/10/2025 This patient was personally seen [id number] for a complete visit as part of routine monthly dialysis care for end stage renal disease. Attending Application Release Manager: ANA TRAN Dialysis Location: [facility] Schedule: Shift: 2 OVERVIEW COMMENTS: 01/11/25 [...] pain or other reasons. JOSE ALFREDO SUBJECTIVE: CONVEYOR INSTALLER 02/10/25: Seen on HD. at chairside. She reports Korey has a dressing to his coccyx now which should help him tolerate sitting in the chair. Shortened treatment on last run due to being uncomfortable. No other concerns. CONVEYOR INSTALLER 01/25/25: Spouse at chairside. reports pt will see vascular surgeon next week regarding his left leg. Taking it one day at a time. Appetite comes and goes. No shortness of breathe or chest pain. Dialysis treatments have been stable. HOME MEDICATIONS Medications reviewed. Current [facility] Outpatient Medications albuterol sulfate 90 mcg/actuation [...] capsule by mouth once a day. Dialyvite [phone] ci-mr-fto-mg tablet Take 1 tablet by mouth every [...] Unknown DIALYSIS PRESCRIPTION Treatment Data Treatment Date: 02/10/2025 started at: 11:28 AM Dialysate / Machine Temp (prescribed): 37.0*C Dialysate / Machine Temp (actual): 37.0*C BFR (prescribed): 450 BFR (actual): 300 DFR (prescribed): Manual 800 DFR (actual): 800 Prescribed Time: 03:30 EDW (kg): 77.1 Dialyzer: 180NRe Optiflux Dialysate: 3.0 K, 2.5 Ca, 1.0 Mg, 100 Dextrose (G3251) Sodium: 135 Bicarb: 30 Pre Dialysis Vitals Pre BP Sit: 146/75 Pre Wt (kg): 81.3 EDW Deviation (kg): 4.2 Temp: 97.4*F Current Dialysis Vitals BP Sit: 140/71 AP/PERCOLATOR OPERATOR: 89/156 Pulse: 72 TREATMENT MEDICATIONS ORDERS Iron Sucrose (Venofer) 50 mg IVP 1X Week During Dialysis 12/30/2024 - 12/29/2025 Mircera 150 mcg IVP Every 2 weeks During Dialysis 02/01/2025 - 01/31/2026 BP AND FLUID ASSESSMENT Acceptable blood pressure. EDW appropriate. COMMENTS: Cindy for BP support Post BP Sit 103/49 - 02/08/2025 101/49 - 02/06/2025 114/50 - 02/03/2025 Post Wt (kg) 79.3 - 02/08/2025 78.6 - 02/06/2025 77.5 - 02/03/2025 EDW (kg) 77.1 - 02/08/2025 77.1 - 02/06/2025 77.1 - 02/03/2025 Deviation (kg) 2.2 - 02/08/2025 1.5 - 02/06/2025 0.4 - 02/03/2025 ADEQUACY ASSESSMENT spKt/V (Daugirdas II) 1.47 (01/11/25) 1.52 (12/07/24) 1.40 (11/09/24) eKdrt/V 1.26 (01/11/25) 1.33 (12/07/24) 1.20 (11/09/24) % Urea Reduction 62 (02/08/25) 71 (01/11/25) 72 (12/07/24) BUN 76 (02/08/25) 70 (01/11/25) 81 (12/07/24) BUN Post Dialysis 29 (02/08/25) 20 (01/11/25) 23 (12/07/24) Creatinine 5.25 (02/08/25) 6.05 (01/11/25) 5.40 (12/07/24) Bicarbonate (CO2) 22 (02/08/25) 26 (01/11/25) 21 (12/12/24) Sodium 127 (02/08/25) 132 (01/11/25) 128 (12/12/24) COMMENTS: CONVEYOR INSTALLER 02/10/25: Should repeat adequacy labs when patient is able to stay for full treatment. Missed Treatments 0 - Last 30 days 0 - Last 60 days ACCESS ASSESSMENT Vascular access examined. 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 He had fistulagram in October 2024 with angioplasty of 2 stenoses AVFistula Standard Left Forearm Active (In Use) - 10/19/2020 Placed - Unknown Access Flow 850 (01/13/25) 768 (01/09/25) 980 (12/12/24) ANEMIA ASSESSMENT Hemoglobin 10.1 (02/08/25) 10.6 (01/25/25) 11.3 (01/11/25) Iron Saturation (TSat) 26 (02/08/25) 18 (01/11/25) 17 (12/12/24) Ferritin 1,306 (01/11/25) 1,106 (10/17/24) 873 (09/12/24) Iron 55 (02/08/25) 30 (01/11/25) 35 (12/12/24) TIBC 208 (02/08/25) 164 (01/11/25) 206 (12/12/24) MCV 96 (02/08/25) 101 (01/11/25) 100 (12/07/24) Platelets 138 (02/08/25) 204 (01/11/25) 186 (12/07/24) Hemoglobin at target. BMM ASSESSMENT Calcium 9.6 02/08/25 9.9 01/11/25 9.7 12/12/24 Corrected Calcium 9.8 02/08/25 10.2 01/11/25 10.1 11/09/24 Phosphorus 2.9 02/08/25 2.6 01/11/25 3.5 12/12/24 Calcium Phosphorus Product 28 02/08/25 26 01/11/25 34 12/12/24 PTH 41 01/11/25 221 10/17/24 189 09/12/24 Vitamin D, 25-OH, Total 56.9 04/13/24 Magnesium 2.1 09/12/24 1.7 07/13/24 1.9 04/13/24 Alkaline Phosphatase 104 07/13/24 115 04/13/24 Aluminum 8 04/13/24 PTH low. Calcium controlled. Bone and mineral metabolism parameters reviewed. NUTRITION ASSESSMENT Albumin 3.7 02/08/25 3.6 01/11/25 4.0 12/07/24 Potassium 5.5 02/08/25 3.7 01/11/25 4.7 12/12/24 eNPCR 1.09 01/11/25 1.29 12/07/24 1.17 11/09/24 Albumin not at goal. Potassium controlled. TRANSPLANT STATUS COMMENT COMMENTS: Patient not a candidate for transplant PHYSICAL EXAM Exam performed. Vital Signs Reviewed. CV - Blood pressure noted. CV - RRR. COMMENTS: Trace edema stable Wearing boot; partial amputation [place]INIBO[place] AND [place] VISIT DIAGNOSES Z99.2 Dependence on renal dialysis N18.6 End stage renal disease ADDITIONAL LABS WBC 5.51 (02/08/25) 10.47 (01/11/25) 6.81 (12/07/24) Hepatitis B Surface Ab 26 (04/13/24) ADDITIONAL COMMENT COMMENTS: Monitor closely. Frail and likely nearing end of life. Hospice agency identified when time by who continues to support him. He continues to want to do dialysis at this time. Signed by: TACHO HICKS APRN-CNP on 02/10/2025 at 12:00:22 PM Transcribed by: TACHO HICKS APRN-CNP on 02/10/2025 at 12:00:22 PM documented in this encounter Plan of Treatment Not on file documented as of this encounter Visit Diagnoses Diagnosis End stage renal disease Dependence on renal dialysis documented in this encounter
--- OUTSIDE RECORDS SUMMARY | 2025-03-19 02:20 | XMS_ITS | Encounter Summary ---
Author Organization [facility] Address [address] [place] [address] Phone Care Team Providers Care Associate Professor Of Art Name Role Phone Unavailable Primary Care Provider Unavailabl e Encounter Details Date Type Department Care Team (Late st Contact Info) Description 03/08/2025 Orders Only [facility] [place] [address] [place] [address] Darren Youssef MD [address] [place] [address] Social History Tobacco Use Types [...] Date/Time Associated Diagnosis Comments HD KINETICS Routine 03/08/2025 POST CHEMISTRY Routine 03/08/2025 IMMUNO CHEMISTRY Routine 03/08/2025 HEMATOLOGY Routine 03/08/2025 CHEMISTRY Routine 03/08/2025 [facility] RESULTS Routine 03/08/2025 documented in this encounter Results * [facility] Results (03/08/2025) Pathologist [facility] spKt/V (Daugirdas II) 1.60 [facility] eKt/V Gotch 1.39 [facility] WSTDKT/V 2.5 [facility] nPCR_HD 1.35 [facility] eKdrt/V 1.39 [facility] PCR 84.90 [facility] spKt/V Gotch 1.64 [facility] [place] eNPCR 1.24 [facility] eKt/V ([place]) 1.38 [facility] 03/08/2025 03/08/2025 [facility] Ordering Provider LAB BLOOD ORDERABLES Final Result Performing Organization Address [facility]/ZIP Co de Phone Number [facility] Contact Performing lab Unknown, [place] * HD KINETICS (03/08/2025) % Urea Reduction 74 65 - 80 % [facility] 03/08/2025 03/09/2025 2:2 1 AM CDT Narrative Resulting Agency Comment Specimen source: Plasma Darren Youssef MD LAB BLOOD ORDERABLES Final Re sult Performing Organization Address [facility] de Phone Number [employer] See order comments or contact performing lab Unknown, [place] * (ABNORMAL) POST CHEMISTRY (03/08/2025) BUN Post Dialysis 20(H) 6 - 19 mg/dL [facility] 03/08/2025 03/09/2025 2:2 1 AM CDT Narrative [facility] - 03/09/2025 Unless otherwise specified, test(s) performed at: [facility], [address] [place] [address], [place] [address] DECORATOR HAND: Rojas Kirkland M.D., Ph.D For any questions, please call customer service at FREQUENCY:MONTHLY Resulting Agency Comment Specimen source: Plasma Darren Youssef MD LAB BLOOD ORDERABLES Final Re sult Performing Organization Address City/[facility]/ZIP Co de Phone Number [facility] See order comments or contact performing lab Unknown, [place] * (ABNORMAL) [facility] (03/08/2025) BUN 76(H) 6 - 19 mg/dL [facility] Creatinine 5.96(H) 0.60 - 1.30 mg/dL [facility] BUN/Creatinine Ratio 12.8 10.0 - 20.0 [facility] Sodium 131(L) [...] not equivalent to measured Ionized Calcium. Phosphorus 3.8 2.6 - 4.5 mg/dL [facility] Calcium Phosphorus Product 36 0 - 54 [facility] Calcium Phosporus Product, Cor 37 0 - 54 [facility] Total Protein 7.4 6.0 - 8.5 g/dL [facility] Albumin 3.8 3.5 - 5.2 g/dL [facility] Globulin, Total 3.6 2.0 - 4.0 g/dL [facility] A/G Ratio 1.1 1.0 - 2.0 [facility] Iron 42(L) 45 - 160 mcg/dL [facility] UIBC 165 155 - 355 mcg/dL [facility] TIBC 207 185 - 515 mcg/dL [facility] Iron Saturation (TSat) 20 20 - 55 % [facility] 03/08/2025 03/09/2025 2:2 6 AM CDT Narrative [facility] - 03/09/2025 Unless otherwise specified, test(s) performed at: [facility], [address] [place] [address], [place] [address] DECORATOR HAND: Rojas Kirkland M.D., Ph.D For any questions, please call customer service at FREQUENCY:MONTHLY Resulting Agency Comment Specimen source: Serum us Darren Youssef MD LAB BLOOD ORDERABLES Final Re sult [facility] See order comments or contact performing lab Unknown, [place] * (ABNORMAL) HEMATOLOGY (03/08/2025) Pathologist [facility] Neutrophils 70.3 40.0 - 75.0 % [facility] Lymphocytes Relative 10.0(L) 19.0 - 48.0 % [facility] Monocytes 9.5 3.0 - 10.0 % [facility] Eosinophils Relative 3.4 0.0 - 7.0 % [facility] Basophils Relative 0.3 0.0 - 1.5 % [facility] COURTNEY 6.5(H) 0.0 - 4.0 % [facility] WBC 6.36 4.80 - 10.80 1000/mcL [facility] RBC 3.85(L) 4.70 - 6.10 mill/mcL [facility] Hematocrit 37.1(L) 42.0 - 52.0 % [facility] MCV 96 80 - 100 fl [facility] MCH 31.2(H) 27.0 - 31.0 pg [facility] MCHC 32.3 30.0 - 36.0 g/dL [facility] RDW 18.8(H) 11.5 - 14.5 % [facility] Hemoglobin 12.0(L) 14.0 - 18.0 g/dL [facility] Hemoglobin x 3 36.0(L) 42.0 - 54.0 % [facility] Platelets 175 130 - 400 1000/mcL [facility] 03/08/2025 03/09/2025 2:1 5 AM CDT N[facility]ative [facility] - 03/09/2025 Unless otherwise specified, test(s) performed at: [facility], [address] [place] [address], [place] [address] DECORATOR HAND: Rojas Kirkland M.D., Ph.D For any questions, please call customer service at FREQUENCY:MONTHLY Resulting Agency Comment Specimen source: Blood us Darren Youssef MD LAB BLOOD ORDERABLES Final Re sult [employer] See order comments or contact performing lab Unknown, [place] * IMMUNO CHEMISTRY (03/08/2025) [facility] Hep B Surface Ag Negative Negative [facility] 03/08/2025 03/09/2025 2:2 6 AM CDT Narrative [facility] - 03/09/2025 Unless otherwise specified, test(s) performed at: [facility], [address] [place] [address], [place] [address] DECORATOR HAND: Rojas Kirkland M.D., Ph.D For any questions, please call customer service at FREQUENCY:MONTHLY Resulting Agency Comment Specimen source: Plasma us Darren Youssef MD LAB BLOOD ORDERABLES Final Re sult [facility] See order comments or contact performing lab Unknown, [place] documented in this encounter Visit Diagnoses Not on filedocumented in this encounter
--- OUTSIDE RECORDS SUMMARY | 2025-03-19 02:20 | XMS_ITS | Encounter Summary ---
Author Organization [facility] Address [address] [place] [address] Phone Care Team Providers Care Intelligence Analyst Name Role Phone Unavailable Primary Care Provider Unavailabl e Encounter Details Date Type Department Care Team (Late st Contact Info) Description 03/01/2025 Orders Only [facility] [place] [address] [facility] [address] [place] [address] Darren Youssef MD [address] [place] [address] Social History Tobacco Use Types [...] Priority Date/Time Associated Diagnosis Comments HEMATOLOGY Routine 03/01/2025 documented in this encounter Results * (ABNORMAL) HEMATOLOGY (03/01/2025) Hemoglobin 11.5(L) 14.0 - 18.0 g/dL [facility] Hemoglobin x 3 34.5(L) 42.0 - 54.0 % [facility] 03/01/2025 03/02/2025 6:0 5 AM CDT Narrative [facility] - 03/02/2025 Unless otherwise specified, test(s) performed at: [facility], [address] [place] [address], [place] [address] FEATHER SHAPER: Rojas Kirkland M.D., Ph.D For any questions, please call customer service at FREQUENCY:OTHER Resulting Agency Comment Specimen source: Blood us Darren Youssef MD LAB BLOOD ORDERABLES Final Re sult [facility] See order comments or contact performing lab Unknown, [place] documented in this encounter Visit Diagnoses Not on filedocumented in this encounter
--- OUTSIDE RECORDS SUMMARY | 2025-03-19 02:20 | XMS_ITS | Encounter Summary ---
Author Organization [facility] Address [address] [place] [address] Phone Care Team Providers Care Ship Officer Name Role Phone Unavailable Primary Care Provider Unavailabl e Encounter Details Date Type Department Care Team (Late st Contact Info) Description 02/15/2025 Orders Only [facility] [place] [address] [facility] [address] [place] [address] Darren Youssef MD [address] [place] [address] Social History Tobacco Use Types [...] Priority Date/Time Associated Diagnosis Comments HEMATOLOGY Routine 02/15/2025 documented in this encounter Results * (ABNORMAL) HEMATOLOGY (02/15/2025) Hemoglobin 10.5(L) 14.0 - 18.0 g/dL [facility] Hemoglobin x 3 31.5(L) 42.0 - 54.0 % [facility] 02/15/2025 02/16/2025 2:1 5 AM CDT Narrative [facility] - 02/16/2025 Unless otherwise specified, test(s) performed at: [facility], [address] [place] [address], [place] [address] MAILROOM PERSONNEL: Rojas Kirkland M.D., Ph.D For any questions, please call customer service at FREQUENCY:OTHER Resulting Agency Comment Specimen source: Blood us Darren Youssef MD LAB BLOOD ORDERABLES Final Re sult [facility] See order comments or contact performing lab Unknown, [place] documented in this encounter Visit Diagnoses Not on filedocumented in this encounter
--- OUTSIDE RECORDS SUMMARY | 2025-03-19 02:20 | XMS_ITS | Encounter Summary ---
Author Organization [facility] Address [address] [place] [address] Phone Care Team Providers Care Forward Air Controller/Air Officer Name Role Phone Unavailable Primary Care Provider Unavailabl e Encounter Details Date Type Department Care Team (Late st Contact Info) Description 03/15/2025 Orders Only [facility] [place] [address] [facility] [address] [place] [address] Darren Youssef MD [address] [place] [address] Social History Tobacco Use Types [...] Priority Date/Time Associated Diagnosis Comments HEMATOLOGY Routine 03/15/2025 documented in this encounter Results * (ABNORMAL) HEMATOLOGY (03/15/2025) Hemoglobin 10.4(L) 14.0 - 18.0 g/dL [facility] Hemoglobin x 3 31.2(L) 42.0 - 54.0 % [email or web address] 03/15/2025 03/17/2025 9:1 7 AM CDT Narrative [facility] - 03/17/2025 Unless otherwise specified, test(s) performed at: [facility], [address] [place] [address], [place] [address] SHIP LOADER: Rojas Kirkland M.D., Ph.D For any questions, please call customer service at FREQUENCY:OTHER Resulting Agency Comment Specimen source: Blood us Darren Youssef MD LAB BLOOD ORDERABLES Final Re sult [facility] See order comments or contact performing lab Unknown, [place] documented in this encounter Visit Diagnoses Not on filedocumented in this encounter
--- OUTSIDE RECORDS SUMMARY | 2025-03-19 02:20 | XMS_ITS | Encounter Summary ---
Author Organization [facility] Address [address] [place] [address] Phone Care Team Providers Care Ditching Machine Operator Name Role Phone Unavailable Primary Care Provider Unavailabl e Encounter Details Date Type Department Care Team (Late st Contact Info) Description 03/06/2025 Treatment [facility] [address] [place] [address] Darren Youssef MD [address] [place] [address] End stage renal disease; Dependence [...] Dialysis Note - Darren Youssef MD - 03/06/2025 12:00 AM CDT Patient: Korey Mackay : 1940 Note Type: Dialysis Rounds-Comp Service Date: 03/06/2025 This patient was personally seen [id number] for a complete visit as part of routine monthly dialysis care for end stage renal disease. Attending Retail Link Analyst: DARREN YOUSSEF Dialysis Location: [facility] Schedule: Shift: 2 OVERVIEW COMMENTS: 03/06/25 [...] been able to do. Might go to [place] for a week if they can do [...] pain or other reasons. JOSE ALFREDO SUBJECTIVE: DATA SECURITY ADMINISTRATOR 02/10/25: Seen on HD. at chairside. She reports Korey has a dressing to his coccyx now which should help him tolerate sitting in the chair. Shortened treatment on last run due to being uncomfortable. No other concerns. DATA SECURITY ADMINISTRATOR 01/25/25: Spouse at chairside. reports pt will see vascular surgeon next week regarding his left leg. Taking it one day at a time. Appetite comes and goes. No shortness of breathe or chest pain. Dialysis treatments have been stable. HOME MEDICATIONS Medications reviewed. Current [facility] Medications albuterol sulfate 90 mcg/actuation [...] capsule by mouth once a day. Dialyvite [id number] [id number]-bp-[id number]-mg tablet Take 1 tablet by mouth every [...] Unknown DIALYSIS PRESCRIPTION Treatment Data Treatment Date: 03/06/2025 started at: 11:40 AM Dialysate / Machine Temp (prescribed): 37.0*C Dialysate / Machine Temp (actual): 37.0*C BFR (prescribed): 450 BFR (actual): 450 DFR (prescribed): Manual 800 DFR (actual): 800 Prescribed Time: 03:30 EDW (kg): 75.2 Dialyzer: 180NRe Optiflux Dialysate: 2.0 K, 2.5 Ca, 1.0 Mg, 100 Dextrose (G2251) Sodium: 135 Bicarb: 30 Pre Dialysis Vitals Pre BP Sit: 153/74 Pre Wt (kg): 79.3 EDW Deviation (kg): 4.1 Temp: 97.0*F Current Dialysis Vitals BP Sit: 134/64 AP/CHART CHANGER: 214/232 Pulse: 69 TREATMENT MEDICATIONS ORDERS Iron Sucrose (Venofer) 50 mg IVP 1X Week During Dialysis 12/30/2024 - 12/29/2025 Mircera 100 mcg IVP Every 2 weeks During Dialysis 02/27/2025 - 2026 BP AND FLUID ASSESSMENT Acceptable blood pressure. Fluid status acceptable. EDW appropriate. COMMENTS: Midodrine for BP support Post BP Sit 106/54 - 03/03/2025 124/62 - 03/01/2025 113/58 - 02/27/2025 Post Wt (kg) 75.2 - 03/03/2025 75.4 - 03/01/2025 77.3 - 02/27/2025 EDW (kg) 76.0 - 03/03/2025 76.0 - 03/01/2025 76.0 - 02/27/2025 Deviation (kg) -0.8 - 03/03/2025 -0.6 - 03/01/2025 1.3 - 02/27/2025 ADEQUACY ASSESSMENT spKt/V (Daugirdas II) 1.63 (02/13/25) 1.04 (02/08/25) 1.47 (01/11/25) eKdrt/V 1.38 (02/13/25) 1.26 (01/11/25) 1.33 (12/07/24) % Urea Reduction 75 (02/13/25) 62 (02/08/25) 71 (01/11/25) BUN 91 (02/13/25) 76 (02/08/25) 70 (01/11/25) BUN Post Dialysis 23 (02/13/25) 29 (02/08/25) 20 (01/11/25) Creatinine 5.25 (02/08/25) 6.05 (01/11/25) 5.40 (12/07/24) Bicarbonate (CO2) 22 (02/08/25) 26 (01/11/25) 21 (12/12/24) Sodium 127 (02/08/25) 132 (01/11/25) 128 (12/12/24) Target met. Prescription compliance acceptable. Missed Treatments 0 - Last 30 days 0 - Last 60 days ACCESS ASSESSMENT Vascular access examined. AVF/AVG positive thrill/bruit. Current access is permanent and functioning well. 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 He had fistulagram in October 2024 with angioplasty of 2 stenoses AVFistula Standard Left Forearm Active (In Use) - 10/19/2020 Placed - Unknown Access Flow 898 (02/10/25) 850 (01/13/25) 768 (01/09/25) ANEMIA ASSESSMENT Hemoglobin 11.5 (03/01/25) 11.0 (02/22/25) 10.5 (02/15/25) Iron Saturation (TSat) 26 (02/08/25) 18 (01/11/25) 17 (12/12/24) Ferritin 1,306 (01/11/25) 1,106 (10/17/24) 873 (09/12/24) Iron 55 (02/08/25) 30 (01/11/25) 35 (12/12/24) TIBC 208 (02/08/25) 164 (01/11/25) 206 (12/12/24) MCV 96 (02/08/25) 101 (01/11/25) 100 (12/07/24) Platelets 138 (02/08/25) 204 (01/11/25) 186 (12/07/24) Hemoglobin not at target. COMMENTS: Hold MISTY with Hgb ?11 BMM ASSESSMENT Calcium 9.6 02/08/25 9.9 01/11/25 [...] 115 04/13/24 Aluminum 8 04/13/24 PTH low. Vitamin D analogue initiated / adjusted. Phosphorus controlled. Calcium controlled. Bone and mineral metabolism parameters reviewed. NUTRITION ASSESSMENT Albumin 3.7 02/08/25 3.6 01/11/25 4.0 12/07/24 Potassium 5.5 02/08/25 3.7 01/11/25 4.7 12/12/24 eNPCR 1.21 02/13/25 1.09 01/11/25 1.29 12/07/24 Albumin not at goal. Potassium controlled. Caloric intake addressed. TRANSPLANT STATUS COMMENT COMMENTS: Patient not a candidate for transplant PHYSICAL EXAM Exam performed. Vital Signs Reviewed. Lungs - Clear. CV - Blood pressure noted. CV - RRR. COMMENTS: Trace edema stable Wearing boot; partial amputation [facility] WBC 5.51 (02/08/25) 10.47 (01/11/25) 6.81 (12/07/24) Hepatitis B Surface Ab 26 (04/13/24) ADDITIONAL COMMENT COMMENTS: Monitor closely. Frail and likely nearing end of life. Hospice agency identified when time by who continues to support him. He continues to want to do dialysis at this time. Signed by: DARREN YOUSSEF MD on 03/06/2025 at 02:02:58 PM Transcribed by: DARREN YOUSSEF MD on 03/06/2025 at 02:02:58 PM documented in this encounter Plan of Treatment Not on file documented as of this encounter Visit Diagnoses Diagnosis End stage renal disease Dependence on renal dialysis documented in this encounter
--- OUTSIDE RECORDS SUMMARY | 2025-03-19 02:21 | XMS_ITS | Clinical Summary ---
Author Organization [facility] Address [address] [place] [id number] Care Team Providers Care Shop Clerk Name Role Phone Anna Marie Oglesby DO Primary Care Provider [phone] Jonah Aguero CHICK ROOM SUPERVISOR Unavailable [phone] Allergies Active Allergy Reactions Criticality Noted Date [...] mouth every 4 hours if needed. 0 008 Active nitroglycerin (NITROSTAT) 0.[address] 1 tablet under the tongue every 5 minutes if needed for Chest Pain. 1 Bottle 6 011 Active coenzyme q10 (CO Q-10) 100 mg cap Take 100 mg by mouth once daily. Active loratadine (CLARITIN) 10 mg tablet Take 10 mg by mouth once daily. Active montelukast (SINGULAIR) 10 mg tabletIndications :Other allergic rhinitis Take 1 tablet by mouth at bedtime. 90 tablet 3 017 Active cholecalciferol (VITAMIN D-3) 2,000 unit capsule Take 2,000 Units by mouth once daily. 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 Hold x 5 days. Resume taking on 11/23/2019. 0 020 Active vitamin e 400 unit capsule Take 1 capsule by mouth once daily. 0 020 Active hydrocortisone 2.5% creamIndications: Hemorrhoids, external Apply topically to affected area(s) 2 times daily if needed for Itching (Pain). 30 g 023 Active insulin aspart, U-100, (NovoLOG FlexPen U-100 Insulin) 100 unit/mL (3 mL) pen Inject 5 units subcutaneous three times daily before meals. Active cycloSPORINE (Restasis) 0.05 % ophthalmic emulsion Place 1 Drop into both eyes two times daily. Active guaiFENesin 100 mg/5 mL liquidIndications :Chronic cough Take 5 mL (100 mg) by mouth every 4 hours if needed for Expectoration. 118 mL 6 023 Active pantoprazole (PROTONIX) 40 mg delayed-release tablet Take 40 mg by mouth once daily. Active Vit B Cplx #75-IX-N-Biot-Zin c (Dialyvite) [phone] iu-dm-dhw-mg tablet Take 1 Tablet by mouth once daily. 024 Active clopidogreL (Plavix) 75 mg tabletIndications :Bilateral carotid artery stenosis,Coronary artery disease, unspecified vessel or lesion type, unspecified whether angina present, unspecified whether curyung or transplanted heart Take 1 Tablet (75 mg) by mouth once daily. Re order from 03/25/24 90 Tablet 3 024 Active polyethylene glycol (Miralax) 17 g per packet packet Mix 1 Packet in liquid then take by mouth once daily if needed for Constipation. Active fluticasone propion-salmetero L (Wixela Inhub) 250-50 mcg/Dose diskus inhaler Inhale 1 Puff by mouth every 12 hours. Active pravastatin (PRAVACHOL) 40 mg tablet Take 40 mg by mouth with dinner. Active tiotropium bromide (SPIRIVA RESPIMAT) 2.5 mcg/actuation mist for inhalation Inhale 2 Puffs by mouth once daily. Active emollient base (VANICREAM TOP) Apply topically to affected area(s) once daily. (all over body) Active zinc gluconate (ZINC ORAL) Take 1 Tablet by mouth once daily if needed (sick). Active carboxymethylcell ulose (REFRESH CELLUVISC) 1 % eye gel in dropperette Place 1 Drop into both eyes two times daily. Active medication order composer Lidocaine 4% cream- apply topically as needed for pain Active Midodrine HCl 10 mg tablet Take 10 mg by mouth. Before and after dialysis (only on dialysis days). Active sennosides-docusa te (Senna-S) (8.6-50 mg) tablet Take 2-3 Tablets by mouth 2 times daily if needed for Constipation. Active fluticasone (50 mcg per actuation) nasal solution (FLONASE) Inhale 1 [place] into affected nostril(s) once daily if needed [...] area(s) 4 times daily if needed. Active neomycin-bacitrac in-polymyxin (Neosporin (pmq-zpg-vvits)) 3.5mg-400 unit-5,000 unit/gram ointment Apply topically to affected area(s) 3 times daily if needed. Active difelikefalin (Korsuva) 50 mcg/mL solnIndications:p ruritus in hemodialysis-depe ndent CKD Inject intravenous. at dialysis Active Patients Unique Medication From Home CBD Sublingual liquid - uses QID PRN for itching/pain Active efinaconazole 10 % topical solutionIndicatio ns:Fungal infection of nail Apply solution daily for 48 weeks. 8 mL 11 025 Active acetaminophen (TYLENOL EXTRA STRGTH) 500 mg tabletIndications :Pain Take 1 Tablet (500 mg) by mouth three times daily. Max acetaminophen dose: 4000mg in 24 hrs. 025 Active mirtazapine (REMERON) 7.5 mg tabletIndications :Insomnia, idiopathic Take 1 Tablet (7.5 mg) by mouth at bedtime. 30 Tablet 1 025 Active levothyroxine (SYNTHROID) 200 mcg tabletIndications :Acquired hypothyroidism Take 1 Tablet (200 mcg) by mouth before breakfast. 60 Tablet 025 Active CPAP Use at bedtime CPAP machine for home use at pressure auto set Settings can be updated with home settings if known. 1 Each 021 2024 Discontinued(* Patient states no longer taking) mirtazapine (REMERON) 7.5 mg tabletIndications :Insomnia, idiopathic Take 1 Tablet (7.5 mg) by mouth at bedtime. 30 Tablet 025 2024 Discontinued levothyroxine (SYNTHROID) 200 mcg tabletIndications :Acquired hypothyroidism Take 1 Tablet (200 mcg) by mouth before breakfast. 60 Tablet 025 2024 Discontinued(R eorder (E-cancel not sent)) Active Problems Problem Noted Date Diagnosed Date Skin ulcer of left thigh, limited to breakdown o f skin 03/02/2025 Overview (03/02/2025): New area 03/02/25 Ulcer of right lower extremi ty, limited to breakdown of skin 03/02/2025 Overview (03/02/2025): New 03/02/25 Dilated cardiomyopathy 01/03/2025 Overview (01/03/2025): AI Summary: [...] Notes - Dialysis Note by 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 APRN-AWNING ASSEMBLER [facility] ... 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 The patient's heart failure is considered rejxu-km-bjvnlde, and follow-up care is planned. 05/31/24: LVEF 40-45% 08/30/24: BP 134/62 08/30/24: HR 73 /min On meds: nitroglycerin, ubidecarenone Recent encounter dx: 06/16/24: Appointment - [facility] 05/25/24: Discharge - [facility], [id number], [id number] / 01 04/19/24: Appointment - [facility] 04/09/16: Discharge - [facility], [facility], [id number], [id number] / 01 10/14/06: Appointment - [facility] Recent studies: 05/30/24: Corresp-Imaging - [facility] ... [-] Findings compatible with heart failure [...] Wu MD ... [-] Name: Sheryl Serrano SS/MR#: [id number] Date: 07/05/2006 Physician Requesting Echo: Chris Morley MD Performed at: [facility] Copy To: Marques Gomez MD Indication [...] Lexus Ballard MA ... 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 [+] Indication: 78-year-old with chronic kidney disease progressed to end- stage renal disease requiring hemodialysis. Recent notes: 10/26/24: Miscellaneous Notes - Dialysis Note by Darren Youssef MD (from [facility] [place] [place] [place] ... [-] end stage renal disease. 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 10/19/2020 Calculus of gallbladder without cholecystitis Second degree heart block 08/07/2016 Overview (08/07/2016): [place] 1 Allergic rhinitis 10/31/2015 Type 2 diabetes [...] Recent encounter dx: 08/23/24: Appointment - [facility] [place] 08/09/24: Appointment - [facility] [place] 07/26/24: Appointment - [facility] [place] 06/16/24: Appointment - [facility] 01/12/24: Appointment - [facility] Recent notes: 08/30/24: Progress Notes - Vascular and Endovascular Surgery by Sneha De La Cruz MD ... [+] Type 2 diabetes mellitus [...] Recent encounter dx: 09/22/24: Appointment - [facility] [place] 09/15/24: Appointment - [facility] 09/04/24: Discharge - [facility], [facility], [id number], E4146 / 01 08/23/24: Appointment - [facility] [place] 08/09/24: Appointment - [facility] [place] Recent notes: 10/13/24: Progress Notes by Jonah Aguero, TAMIKO ... [+] Situation complicated by type 2 [...] him to f/u with his PMD in [place] early next week for a repeat check. Patient and agree to this plan. If not improving, can also help them schedule with ID at [facility] for another exam. -RTC PRN Pulmonary emphysema [...] tiotropium Recent encounter dx: 06/16/24: Appointment - [facility] 03/03/24: Appointment - [facility] 01/12/24: Appointment - [facility] 02/07/16: Support OP Encounter - [facility] 12/20/15: Appointment - [facility] Recent notes: 08/30/24: Progress Notes - Vascular and Endovascular Surgery by Sneha De La Cruz MD ... [+] ? Pulmonary emphysema (HC) 04/13/2015 06/28/24: Progress Notes - History of Present Illness by Zeny Medley MD ... [+] ? Pulmonary emphysema (HC) J43.9 06/08/24: Discharge Summary by Phillip Hlil DO ... [+] Pulmonary emphysema (HC) 06/04/24: Progress Notes - Vascular & Endovascular Surgery Progress Note by [facility] Espinoza ... [-] Pulmonary emphysema 05/25/24: Progress Notes by Ezekiel Soto, ... 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 Overview (07/10/2006): Status post CABG x4; 07/09/06 Personal history of contact with and (suspected) exposure to asbestos Overview (10/07/2007): With abnl lung nodules Chronic airway obstruction, not elsewhere classi fied Anemia of chronic renal failure Resolved Problems Problem Noted Date Diagnosed Date Resolved Date Skin ulcer of left thigh, li mited to breakdown of skin 11/15/2024 01/31/2025 Overview (11/15/2024): New 11/15/24 Open wound of toe 09/27/2024 01/31/2025 Overview (01/31/2025): -Right hallux, toes 3-5 - resolved 01/31/25 -Left toes 2-3 - resolved 11/15/24 Hematoma of left lower leg 09/27/2024 0 01/03/2025 Overview (01/03/2025): Resolved 01/03/25 Skin ulcer of right thigh wi th fat layer exposed 09/27/2024 01/31/2025 Pleural effusion 09/27/2024 09/27/2024 Hemorrhage of pseudoaneurysm [...] Encounters Date Type Department Care Team Description 03/16/2025 10:15 AM CDT Office Visit [facility] [address] [facility] [address] [place] [address] Dilshad Hernandez MD Hand Pain/problem (Right index finger wound) 03/16/2025 Transcribe Orders [facility] [address] [place] [address] Dilshad Hernandez MD 03/16/2025 Travel 03/11/2025 Travel 03/07/2025 Telephone [facility] [address] [place] [address] Dilshad Hernandez MD Appointment Request (OPEN WOUND INDEX FINGER, BONE EXPOSED) 03/02/2025 1:00 PM CDT Office Visit [facility] [address] [place] [address] Jonah Aguero NP Wound Check 03/02/2025 Travel 03/01/2025 Travel 2025 Travel 02/18/2025 Refill [facility] [address] [place] [address] Shaqra Anna Marie Marta, DO Refill Request (Mirtazapine) 02/09/2025 4:00 PM CDT Office Visit [facility] [address] [place] [address] Chastity Lucero NP Concerns (possible pressure wound) 02/08/2025 Travel 01/31/2025 1:00 PM CDT Office Visit [facility] [address] [facility] [address] [place] [address] Sneha De La Cruz MD Follow Up (7 MONTH F/U, OV, IMAGING PRIOR IN [place] 01/24/25 PT states feeling ok, discuss his finger- having blood flow concerns. ) 01/31/2025 11:00 AM CDT Office Visit [facility] [address] [place] [address] Jonah Aguero NP Wound Check 01/30/2025 Travel 01/26/2025 Orders Only [facility] Scanner 1 scan: (1-Ord) [facility], 01/26/2025 01/24/2025 1:45 PM CDT Orders Only [facility] [address] [place] [address] 1 scan: (1-Ord) US ARTERIAL LOWER EXTREMITY LEFT ([id number]) 01/24/2025 1:00 PM CDT Orders Only [facility] [address] [place] [address] 1 scan: (1-Ord) US CAROTID DUPLEX BILATERAL ([id number]) 01/24/2025 Travel 01/19/2025 Nurse Triage [facility] [address] [facility] [place] [address] Shaqra Anna Marie Marta, DO Leg Swelling 01/19/2025 Telephone [facility] [address] [place] [address] Jonah Aguero NP Concerns 01/03/2025 11:30 AM CDT Office Visit [facility] [address] [place] [address] Jonah Aguero NP Wound Check 01/02/2025 Travel 12/26/2024 Telephone [facility] [address] [place] [address] Jonah Aguero NP DME Supply 12/23/2024 Telephone [facility] [address] [place] [address] Arnie Clemens MD Medication Management from Last 3 Months Immunizations Immunization Administration [...] (Age >=3 years) 03/20/2008,04/10,05/01/1995 Influenza, RIV3 (Age =>9 Years) 03/23/2024 Pneumococcal Poly,23-Valent (Pneumovax) 03/19/1994 Pneumococcal [...] on file Legal Sex Male 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 Gender Identity Not on file Sexual Orientation Not on file Occupation Industry Job Start Date Job End Date retired Not on file Not on file Not on file Obstetrics History Last Filed Vital Signs Vital Sign Reading Time Taken Comments Blood Pressure 108/59 03/02/2025 1:14 PM CDT Pulse 74 03/02/2025 1:14 PM CDT Temperature 36.6 C (97.9 F) 03/02/2025 1:14 PM CDT Respiratory Rate 18 01/03/2025 12:00 PM CDT Oxygen Saturation 93% 03/02/2025 1:14 PM CDT Inhaled Oxygen Concentration - - Weight 77.7 kg (171 lb 4.8 oz) 02/09/2025 4:11 P M CDT Height 182.9 cm (6') 01/31/2025 1:09 PM CDT Body Mass Index 23.23 01/31/2025 1:09 PM CDT Plan of Treatment Upcoming Encounters Date Type Department Care Team (Late st Contact Info) Description 03/28/2025 1:40 PM CDT Hospital Encounter [address] [address] Dilshad Hernandez MD [address] [place] [address] 03/28/2025 1:40 PM CDT - 03/28/2025 3:00 PM CDT Surgery [address] [address] Dilshad Hernandez MD [address] [place] [address] RIGHT INDEX FINGER PARTIAL AMPUTATION 04/04/2025 11:00 AM CDT Office Visit [facility] [address] [place] [address] Anna Marie Oglesby DO [address] [place] [address] 04/13/2025 10:30 AM SCHOOL GUARD Office Visit [facility] [address] [facility] [address] [place] [address] Johanny Vargas PA [address] [facility] [address] [place] [address] 04/13/2025 1:15 PM SCHOOL GUARD Office Visit [facility] [address] [place] [address] Mary Boudreaux NP [address] [facility] [address] [place] [address] 05/11/2025 11:15 AM SCHOOL GUARD Office Visit [facility] [address] [place] [address] Mary Boudreaux, TAMIKO [address] [place] [address] 05/30/2025 11:30 AM SCHOOL GUARD Office Visit [facility] [address] [place] [phone] Arron Carbajal MD [address] [facility] [address] [facility] [address] [place] [address] 07/19/2025 11:00 AM SCHOOL GUARD Cardiac Device Check [facility] [place] [facility] [address] [place] [address] Scheduled Procedures Name Priority Associated Diagnoses Date/Ti me AMPUTATION FINGER Tier 4: > 90 days Open wound of right index finger 03/28/2025 1:40 PM CDT Health Maintenance Due Date Last Done Comments RSV vaccine for adults or (1 - 1-dose 75+ series) 2013 Pneumococcal series for age 50+ (3 of 3 - PCV20 or PCV21) 06/06/2015 04/11/2015, 03/23/2013, 08/25/2003, Additional history exists Hepatitis B series for 19+ ( 5 of 5 - Risk Dialysis Recombivax 3-dose series) 03/25/2022 03/25/2021, 01/28/2021, 12/31/2020, Additional history exists Depression screening for age 12+ 01/11/2025 01/12/2024, 11/05/2022, 11/05/2022, Additional history exists Medicare Wellness for age 65+ 01/12/2025, 11/04/2022, 05/19/2019 COVID-19 vaccine series ( season) 2025 03/17/2022, 10/10/2021, 04/04/2021, Additional history exists Influenza Vaccine (#1) 2025 , 03/10/2022, 03/09/2021, Additional history exists BMI (ht and wt on same day) for age 18+ 01/31/2026 01/31/2025, 08/30/2024, 08/16/2024, Additional history exists Tetanus booster 12/18/2032 12/18/2022, 06/09, 03/24/2008, Additional history exists Zoster (shingles) series for age 50+ Completed 09/18/2020, 03/15/2020, 06/08/2013, Additional history exists Goals Goal Patient Goal Type Associated Problems Recent Progress Patient-Stated? Author Autogenerat ed Goal Care Plan Autogenerated Problem No Rebecca Barnett Medical Devices Implanted Type Area Fibreglass Laminator Device Identifier Shelf Expiration Date Model / Serial / Lot Screw Sm Joint 3.5x80mm Os Slf Tppng Bob - [id number] Implanted:Qty: 1 on 04/15/2015 by Rj Biu MD at [facility] Left: Leg [employer] [id number]# / / Screw Sm Joint 4x85mm Axs[employer] Lock Slf Tppng [address] - [id number] Implanted:Qty: 1 on 04/15/2015 by Rj Bui MD at [facility] Left: Leg [employer] [id number]# / / Screw Sm Joint 3.5x75mm Os Slf Tppng Bob - [id number] Implanted:Qty: 1 on 04/15/2015 by Rj Bui MD at [facility] Left: Leg [employer] [id number]# / / Screw Sm Joint 3.5x85mm Os Slf Tppng Bob - [id number] Implanted:Qty: 1 on 04/15/2015 by Rj Bui MD at [facility] Left: Leg [employer] [id number]# / / Plate Tib Lt 10 Hole [employer] Pro[employer] Lateral - [id number] Implanted:Qty: 1 on 04/15/2015 by Rj Bui MD at [facility] Left: Leg [employer] [id number]# / / Screw Sm Joint 3.5x28mm Os Slf Tppng Bob - [id number] Implanted:Qty: 1 on 04/15/2015 by Rj Bui MD at [facility] Left: Leg [employer] [id number]# / / Screw Sm Joint 3.5x30mm Os Slf Tppng Bob - [id number] Implanted:Qty: 1 on 04/15/2015 by Rj Bui MD at [facility] Left: Leg [employer] [id number]# / / Screw Sm Joint 3.5x32mm Os Slf Tppng Bob - [id number] Implanted:Qty: 1 on 04/15/2015 by Rj Bui MD at [facility] Left: Leg [employer] [id number]# / / Screw Sm Joint 4x26mm [employer] Lock Slf Tppng [address] - [id number] Implanted:Qty: 1 on 04/15/2015 by Rj Bui MD at [facility] Left: Leg [employer] [id number]# / / Explanted Type Area Fibreglass Laminator Device Identifier Shelf Expiration Date Model / Serial / Lot K-Wire [employer] 10pk - [id number] Explanted:Qty: 2 on 04/15/2015 at [facility] Left: Leg [employer] [id number]# / / Procedures Procedure Name Priority Date/Time Associated Diagnosis Comments SCAN-EYE EXAM 01/26/2025 12:00 AM CDT US ARTERIAL LOWER EXTREMITY LEFT Routine 01/24/2025 2:15 PM CDT PAD (peripheral artery disease) US CAROTID DUPLEX BILATERAL Routine 01/24/2025 2:15 PM CDT Bilateral carotid artery stenosis from Last 3 Months Results * SCAN-EYE EXAM (01/26/2025 12:00 AM CDT) us Scanner OTHER Final Result * US ARTERIAL LOWER EXTREMITY LEFT (01/24/2025 2:15 PM CDT) Anatomical Region Laterality Modality LEGS, LEG L Ultrasound 01/24/2025 1:11 PM CDT Narrative 01/25/2025 11:23 AM CDT VASCULAR ULTRASOUND REPORT SHERYL ESRRANO : 1940 Study Date: 01/24/2025 1:11:14 PM Age: 84 years Tech: BVB Gender: M Referring MD: SNEHA DE LA CRUZ Site: [facility] Study performed: Lower extremity duplex US, (left). Indication for study: Follow-up known PAD TECHNIQUE: Lower/upper extremity arteries were examined per exam protocol by duplex ultrasound, color-flow and spectral Doppler. Peak systolic velocities (PSV), Doppler waveform quality, velocity ratios and vessel size in cm, were documented at protocol specific sites. Physiologic data including segmental pressures, ankle/brachial index (RITA), digit PPG recordings, laser Doppler flowmetry, transcutaneous oximetry, and digit temperatures were documented at sites per exam protocol and test requirements. IMPRESSION: 1. Evaluation of the lower left extremity shows 50-74% stenosis in the distal common femoral artery and 50-74% stenosis in the mid/distal superficial femoral artery. 2. Monophasic pedal pulses bilaterally. COMPARISON: Compared to prior study 10/18/2024, there is no significant change. FINDINGS: RITA could not be performed due to previous noncomressibility, TBI could not be performed due to multiple toe wounds. Highly calcified plaque may obscure underlying disease. There is 50-74% stenosis in the left distal common femoral artery. +-------+ + + RIGHT Velocity cm/s Phasicity +-------+ + + SUPERVISOR COOLER SERVICE DST 29 monophasic +-------+ + + DPA 24 monophasic +-------+ + + + + + + + +--------+-----+ LEFT Velocity cm/s PRE POST Phasicity Stenosis Ratio Velocity cm/s Velocity Phasicity cm/s Phasicity + + + + + +--------+-----+ SENIOR COST ACCOUNTANT PRX 87 multiphasic + + + + + +--------+-----+ SENIOR COST ACCOUNTANT DST 202 87 67 multiphasic 50-74% 2.3 + + + + + +--------+-----+ PFA 67 multiphasic + + + + + +--------+-----+ SFA PRX 146 multiphasic + + + + + +--------+-----+ SFA MID 80 monophasic + + + + + +--------+-----+ SFA MID 235 99 65 stenotic 50-74% 2.4 DST + + + + + +--------+-----+ SFA DST 67 monophasic + + + + + +--------+-----+ RADHA PRX 87 monophasic + + + + + +--------+-----+ RADHA DST 89 monophasic + + + + + +--------+-----+ SUPERVISOR COOLER SERVICE DST 31 monophasic + + + + + +--------+-----+ DPA 32 monophasic + + + + + +--------+-----+ Criteria: Stenosis V. Ratio Mild <50% <2.0 Moderate 50-74% > or = 2.0 Severe 75-99% > or = 4.0 Occluded 100% no detectable flow Gary Petersen MD. Electronically signed on 01/25/2025 11:23:41 AM This study was performed and interpreted by a service accredited by the Intersocietal Accreditation Commission (IAC/Vascular), www.intersocietal.org/vascular Report generated by [employer]. Final Procedure Note JaGary borjas MD - 01/25/2025 VASCULAR ULTRASOUND REPORT SHERYL SERRANO : 1940 Study Date: 01/24/2025 1:11:14 PM Age: 84 years Tech: BVB Gender: M Referring MD: SNEHA DE LA CRUZ Site: [facility] Study performed: Lower extremity duplex US, (left). [...] stenosis in thedistal common femoral artery and 50-74% stenosis in the mid/distalsuperficial femoral artery. 2. Monophasic pedal pulses bilaterally. COMPARISON: Compared to prior study 10/18/2024, there is no significant change. FINDINGS: RITA could not be performed due to previous noncomressibility, TBI couldnot be performed due to multiple toe wounds. Highly calcified plaque mayobscure underlying disease. There is 50-74% stenosis in the left distal common femoral artery. +-------+ + + RIGHT Velocity cm/s Phasicity +-------+ + + SUPERVISOR COOLER SERVICE DST 29 monophasic +-------+ + + DPA 24 monophasic +-------+ + + + + + + + +--------+-----+ LEFT Velocity cm/s PRE POST Phasicity Stenosis Ratio Velocity cm/s Velocity Phasicity cm/s Phasicity + + + + + +--------+-----+ SENIOR COST ACCOUNTANT PRX 87 multiphasic + + + + + +--------+-----+ SENIOR COST ACCOUNTANT DST 202 87 67 multiphasic 50-74% 2.3 + + + + + +--------+-----+ PFA 67 multiphasic + + + + + +--------+-----+ SFA PRX 146 multiphasic + + + + + +--------+-----+ SFA MID 80 monophasic + + + + + +--------+-----+ SFA MID 235 99 65 stenotic 50-74% 2.4 DST + + + + + +--------+-----+ SFA DST 67 monophasic + + + + + +--------+-----+ RADHA PRX 87 monophasic + + + + + +--------+-----+ RADHA DST 89 monophasic + + + + + +--------+-----+ SUPERVISOR COOLER SERVICE DST 31 monophasic + + + + + +--------+-----+ DPA 32 monophasic + + + + + +--------+-----+ Criteria: Stenosis V. Ratio Mild <50% <2.0 Moderate 50-74% > or = 2.0 Severe 75-99% > or = 4.0 Occluded 100% no detectable flow Gary Petersen MD. Electronically signed on 01/25/2025 11:23:41 AM This study was performed and interpreted by a service accredited by theIntersocietal Accreditation Commission (IAC/Vascular),www.[email or web address]/vascular Report generated by [employer]. Final us Sneha De La Cruz MD Final R esult * US CAROTID DUPLEX BILATERAL (01/24/2025 2:15 PM CDT) Anatomical Region Laterality Modality CAROTID, NECK Ultrasound 01/24/2025 1:30 PM CDT Narrative 01/25/2025 11:22 AM CDT VASCULAR ULTRASOUND REPORT SHERYL SERRANO : 1940 Study Date: 01/24/2025 1:30:20 PM Age: 84 years Tech: ELIOTB Gender: M Referring MD: SNEHA DE LA CRUZ Site: [facility] Study performed: Carotid Indication for Study: follow-up known disease TECHNIQUE: The extracranial carotid arteries, vertebral arteries [...] internal carotid artery. 2. Normal antegrade flow within bilateral vertebral arteries. 3. Multiphasic flow in the right subclavian artery consistent with no flow limiting stenosis and monophasic flow in the left subclavian artery consistent with significant disease proximally. COMPARISON: Compared to prior study 06/28/2024, there is no significant change. FINDINGS: Highly calcified plaque may obscure higher degree disease. RIGHT FINDINGS: Antegrade flow in the right vertebral artery. Multiphasic flow in the right subclavian artery consistent with no flow limiting stenosis. LEFT FINDINGS: Antegrade flow in the left vertebral artery. Monophasic flow in the left subclavian artery consistent with significant disease proximally. MEASUREMENTS: +--------+--------+------+--------+--------+ RIGHT RIGHT LEFT LEFT +--------+--------+------+--------+--------+ PSV cm/s EDV cm/s Vessel PSV cm/s EDV cm/s +--------+--------+------+--------+--------+ 42 6 P. CCA 42 +--------+--------+------+--------+--------+ 55 10 D. CCA 41 7 +--------+--------+------+--------+--------+ 291 55 P. ICA 473 105 +--------+--------+------+--------+--------+ 137 17 M. ICA 82 9 +--------+--------+------+--------+--------+ 65 16 D. ICA 52 10 +--------+--------+------+--------+--------+ 115 0 ECA 199 0 +--------+--------+------+--------+--------+ +-----+ +----+ RIGHT LEFT +-----+ +----+ 5.3 ICA/CCA Ratio 11.5 +-----+ +----+ Gary Petersen MD. Electronically signed on 01/25/2025 11:22:41 AM This study was performed and interpreted by a service accredited by the Intersocietal Accreditation Commission (IAC/Vascular), www.intersocietal.org/vascular Report generated by [employer]. Final Procedure Note Gary Petersen MD - 01/25/2025 VASCULAR ULTRASOUND REPORT SHERYL SERRANO : 1940 Study Date: 01/24/2025 1:30:20 PM Age: 84 years Tech: MICAELA Gender: M Referring MD: SNEHA DE LA CRUZ Site: [facility] Study performed: Carotid Indication for Study: follow-up known disease TECHNIQUE: The extracranial carotid arteries, vertebral arteries [...] left internal carotidartery. 2. Normal antegrade flow within bilateral vertebral arteries. 3. Multiphasic flow in the right subclavian artery consistent with noflow limiting stenosis and monophasic flow in the left subclavian arteryconsistent with significant disease proximally. COMPARISON: Compared to prior study 06/28/2024, there is no significant change. FINDINGS: Highly calcified plaque may obscure higher degree disease. RIGHT FINDINGS: Antegrade flow in the right vertebral artery. Multiphasic flow in theright subclavian artery consistent with no flow limiting stenosis. LEFT FINDINGS: Antegrade flow in the left vertebral artery. Monophasic flow in the leftsubclavian artery consistent with significant disease proximally. MEASUREMENTS: +--------+--------+------+--------+--------+ RIGHT RIGHT LEFT LEFT +--------+--------+------+--------+--------+ PSV cm/s EDV cm/s Vessel PSV cm/s EDV cm/s +--------+--------+------+--------+--------+ 42 6 P. CCA 42 +--------+--------+------+--------+--------+ 55 10 D. CCA 41 7 +--------+--------+------+--------+--------+ 291 55 P. ICA 473 105 +--------+--------+------+--------+--------+ 137 17 M. ICA 82 9 +--------+--------+------+--------+--------+ 65 16 D. ICA 52 10 +--------+--------+------+--------+--------+ 115 0 ECA 199 0 +--------+--------+------+--------+--------+ +-----+ +----+ RIGHT LEFT +-----+ +----+ 5.3 ICA/CCA Ratio 11.5 +-----+ +----+ Gary Petersen MD. Electronically signed on 01/25/2025 11:22:41 AM This study was performed and interpreted by a service accredited by theIntersocietal Accreditation Commission (IAC/Vascular),www.[email or web address]/vascular Report generated by [employer]. 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
--- OUTSIDE RECORDS SUMMARY | 2025-03-19 02:21 | XMS_ITS | Clinical Summary ---
Author Organization [facility] Facility Address [address] [address] Care Team Providers Care Employment Security Officer Name Role Phone Unavailable Primary Care [...] Encounters Date Type Department Care Team Description 03/17/2025 Treatment [facility] [address] [place] [address] Elizabeth Hicks APRN-ALLISON End stage renal disease; Dependence on renal dialysis 03/15/2025 Orders Only [facility] [address] [place] [phone] Darren Youssef MD 03/08/2025 Orders Only [facility] [address] [place] [phone] Darren Youssef MD 03/06/2025 Treatment [facility] [address] [place] [address] Darren Youssef MD End stage renal disease; Dependence on renal dialysis 03/01/2025 Orders Only [facility] [place] [place] [phone] Darren Youssef MD 02/22/2025 Orders Only [facility] [place] [place] [address] Darren Youssef MD 02/15/2025 Orders Only [facility] [place] [address] [place] [phone] Darren Youssef MD 02/13/2025 Orders Only [facility] [place] [address] [place] [phone] Darren Youssef MD 02/10/2025 Treatment [facility] [address] [place] [address] Elizabeth Hicks APRN-ALLISON End stage renal disease; Dependence on renal dialysis 02/08/2025 Orders Only [facility] [place] [address] [place] [phone] Darren Youssef MD 01/25/2025 Orders Only [facility] [place] [address] [place] [phone] Darren Youssef MD 01/25/2025 Treatment [facility] [address] [place] [phone] 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 End stage renal disease; Dependence on renal dialysis 01/11/2025 Orders Only [facility] [address] [place] [phone] Darren Youssef MD 01/11/2025 Treatment [facility] [address] [place] [address] Darren Youssef MD End stage renal disease; Dependence on renal dialysis 01/04/2025 Orders Only [facility] [address] [place] [address] Darren Youssef MD 01/04/2025 Treatment [facility] [address] [place] [address] Darren Youssef MD End stage renal disease; Dependence on renal dialysis 12/28/2024 Orders Only [facility] [address] [place] [address] Darren Youssef MD 12/28/2024 Treatment [facility] [address] [place] [address] Elizabeth Hicks APRN-ALLISON End stage renal disease; Dependence on renal dialysis 12/21/2024 Orders Only [facility] [address] [place] [address] Darren Youssef MD from Last 3 Months [...] 08/29/202405/31/ 024, 01/12/2024, 09/24/2020, Additional history exists Pneumococcal Vaccine: Peds ( 0 to 5 Years) and At-Risk Patients (6 to 49 Years) Discontinued 04/11/2015, 03/23/2013, 08/25/2003, Additional history exists Influenza Vaccine Completed 02/27/2025, , 03/23/2023, Additional history exists Procedures Procedure Name Priority Date/Time Associated Diagnosis Comments HEMATOLOGY Routine 03/15/2025 [facility] TRACE LAB RESULTS Routine 03/08/2025 HD KINETICS Routine 03/08/2025 POST CHEMISTRY Routine 03/08/2025 CHEMISTRY Routine 03/08/2025 HEMATOLOGY Routine 03/08/2025 IMMUNO CHEMISTRY Routine 03/08/2025 HEMATOLOGY Routine 03/01/2025 HEMATOLOGY Routine 02/22/2025 HEMATOLOGY Routine 02/15/2025 [facility]RA TRACE LAB RESULTS Routine 02/13/2025 HD KINETICS Routine 02/13/2025 POST CHEMISTRY Routine 02/13/2025 CHEMISTRY Routine 02/13/2025 [facility]PECTRA TRACE LAB RESULTS Routine 02/08/2025 IMMUNO CHEMISTRY Routine 02/08/2025 HD KINETICS Routine 02/08/2025 CHEMISTRY Routine 02/08/2025 HEMATOLOGY Routine 02/08/2025 POST CHEMISTRY Routine 02/08/2025 IMMUNO CHEMISTRY Routine 01/25/2025 HEMATOLOGY Routine 01/25/2025 SPECTRA TRACE LAB RESULTS Routine 01/11/2025 HD KINETICS Routine 01/11/2025 CHEMISTRY Routine 01/11/2025 CHEMISTRY Routine 01/11/2025 POST CHEMISTRY Routine 01/11/2025 HEMATOLOGY Routine 01/11/2025 HEMATOLOGY Routine 01/04/2025 HEMATOLOGY Routine 12/28/2024 HEMATOLOGY Routine 12/21/2024 HEMOGLOBIN A1C Routine 09/24/2020 11:00 AM CDT from Last 3 Months or Most Recently Relevant to Health Maintenance Results * (ABNORMAL) HEMATOLOGY (03/15/2025) Only the most recent of11 resultswithin the time period is included. Hemoglobin 10.4(L) 14.0 - 18.0 g/dL [facility] Hemoglobin x 3 31.2(L) 42.0 - 54.0 % [facility] 03/15/2025 03/17/2025 9:1 7 AM CDT Narrative [facility] - 03/17/2025 Unless otherwise specified, test(s) performed at: [facility], [address] [place] [address], [place] [address] DYED RAW STOCK BLOWER FEEDER: Rojas Kirkland M.D., Ph.D For any questions, please call customer service at FREQUENCY:OTHER Resulting Agency Comment Specimen source: Blood us Darren Yuossef MD LAB BLOOD ORDERABLES Final Re sult [employer] See order comments or contact performing lab Unknown, [place] * HD KINETICS (03/08/2025) Only the most recent of4 resultswithin the time period is included. % Urea Reduction 74 65 - 80 % [facility] 03/08/2025 03/09/2025 2:2 1 AM CDT Narrative Resulting Agency Comment Specimen source: Plasma Darren Youssef MD LAB BLOOD ORDERABLES Final Re sult Performing Organization Address [facility] de Phone Number [facility] See order comments or contact performing lab Unknown, [place] * (ABNORMAL) POST CHEMISTRY (03/08/2025) Only the most recent of4 resultswithin the time period is included. Pathologist [facility] BUN Post Dialysis 20(H) 6 - 19 mg/dL [facility] 03/08/2025 03/09/2025 2:2 1 AM CDT Narrative [facility] - 03/09/2025 Unless otherwise specified, test(s) performed at: [facility], [address] [place] [address], [place] [address] DYED RAW STOCK BLOWER FEEDER: Rojas Kirkland M.D., Ph.D For any questions, please call customer service at FREQUENCY:MONTHLY Resulting Agency Comment Specimen source: Plasma Darren Youssef MD LAB BLOOD ORDERABLES Final Re sult Performing Organization Address [facility] de Phone Number [employer] See order comments or contact performing lab Unknown, [place] * IMMUNO CHEMISTRY (03/08/2025) Only the most recent of3 resultswithin the time period is included. Pathologist [facility] Hep B Surface Ag Negative Negative [facility] 03/08/2025 03/09/2025 2:2 6 AM CDT Narrative [facility] - 03/09/2025 Unless otherwise specified, test(s) performed at: [facility], [address] [place] [address], [place] [address] DYED RAW STOCK BLOWER FEEDER: Rojas Kirkland M.D., Ph.D For any questions, please call customer service at FREQUENCY:MONTHLY Resulting Agency Comment Specimen source: Plasma us Darren Youssef MD LAB BLOOD ORDERABLES Final Re sult [facility] See order comments or contact performing lab Unknown, [place] * (ABNORMAL) [facility] Chemistry (03/08/2025) Only the most recent of5 resultswithin the time period is included. BUN 76(H) 6 - 19 mg/dL [facility] [...] 03/09/2025 Unless otherwise specified, test(s) performed at: [facility], [address] [place] [address], [place] [address] DYED RAW STOCK BLOWER FEEDER: Rojas B Cuney, M.D., Ph.D For any questions, please call customer service at FREQUENCY:MONTHLY Resulting Agency Comment Specimen source: Serum us Darren Youssef MD LAB BLOOD ORDERABLES Final Re sult [facility] See order comments or contact performing lab Unknown, [place] * [facility] TRACE Lab Results (03/08/2025) Only the most recent of4 resultswithin the time period is included. spKt/V (Daugirdas II) 1.60 [facility] eKt/V Gotch 1.39 [facility]ledg e [facility] WSTDKT/V 2.5 [facility] nPCR_HD 1.35 [facility] eKdrt/V 1.39 [facility] PCR 84.90 [facility] spKt/V Gotch 1.64 [facility] ge [facility] eNPCR 1.24 [facility] eKt/V ([place]) 1.38 [facility] 03/08/2025 03/08/2025 us Trace Ordering Provider LAB BLOOD ORDERABLES Final Result [facility] Contact Performing lab Unknown, [place] * (ABNORMAL) Hemoglobin A1c (09/24/2020 11:00 AM CDT) Hemoglobin A1C 5.8(H) 0.0 - 5.6 %A1c [facility] 09/24/2020 11:0 0 AM CDT 09/25/2020 12:06 PM CDT us Checo Sky MD LAB BLOOD ORDERABLES Edited Resu lt - Final APS JARRODIRENE [facility] from Last 3 Months or Most Recently Relevant to Health Maintenance Insurance [facility] Medicare
--- NOTE | 2025-03-19 02:30 | ED.NURSE ---
lab in room for draw
--- NOTE | 2025-03-19 02:30 | ED.NURSE ---
pt has right big toe amputated. pt wound dressed per wifes' instructions.
--- NOTE | 2025-03-19 03:00 | ED.NURSE ---
pt returned from Radiology
[2025-03-19 03:13] LABS: Hematocrit* 22.8 % (37.0-53.0); Immature Granulocytes Abs Auto 0.01 K/uL (0.00-0.30); Immature Granulocytes Pct Auto 0.1 %; Mean Corpuscular HGB Conc 33 gm/dL (32-36); Mean Corpuscular Hemoglobin 31 pg (26-34); Mean Corpuscular Volume 92 fL (80-100); RDW Coefficient of Variation % 17.0 % (11.5-15.5); Red Blood Count* 2.48 m/uL (4.30-5.90); White Blood Count* 7.12 K/uL (4.50-11.00)
[2025-03-19 03:15] LABS: Hemoglobin* 7.6 gm/dL (13.5-17.5); Lymphocytes Absolute Auto 0.50 K/uL (0.90-2.90); Slide Review Reflex No
[2025-03-19 03:23] LABS: Albumin* 3.5 g/dL (3.3-5.0); Chloride* 91 mmol/L (96-114); Potassium* 5.6 mmol/L (3.6-5.1)
[2025-03-19 03:25] LABS: Creatinine* 5.9 mg/dL (0.5-1.5); Est. Creatinine Clearance* 9.68; Estimated Glomerular Filt Rate 9 ml/min
[2025-03-19] MEDS: 0.9 % SODIUM CHLORIDE 500 ML 500 ML IV (03:25)
[2025-03-19 03:26] LABS: Alanine Aminotransferase* 29 U/L (4-50); Alkaline Phosphatase* 103 U/L (40-150); Anion Gap 13 mEq/L (7-15); Aspartate Amino Transferase* 29 U/L (12-35); Bilirubin Direct* 0.5 mg/dL (0.0-0.5); Bilirubin Total* 0.5 mg/dL (0.1-1.5); Calcium* 9.0 mg/dL (8.4-10.6); Carbon Dioxide* 17 mmol/L (20-32); Glucose* 144 mg/dL (60-115); Total Protein* 6.8 g/dL (6.0-8.3)
--- NOTE | 2025-03-19 03:27 | ED.NURSE ---
pt keeps removing ekg patches/wires, stating they are uncomfortable.
[2025-03-19 03:32] LABS: Blood Urea Nitrogen* 120 mg/dL (7-30)
[2025-03-19 03:34] LABS: Sodium* 121 mmol/L (135-149)
[2025-03-19 04:05] LABS: PCR FLU A Negative PCR FLU A (Negative); PCR FLU B Negative PCR FLU B (Negative); PCR RSV Negative PCR RSV (Negative); SARS PCR* Negative SARS-CoV-2 (Negative)
[2025-03-19 04:30] LABS: NT Pro B Type NatriureticPept* 64700 pg/mL (See Note)
--- NOTE | 2025-03-19 04:33 | ED.GENADULT ---
HPI - General Adult General Chief complaint: Chest Pain Stated complaint: Chest Pain History of Present Illness HPI narrative: 85 year old man presenting to the emergency department be EMS with concern of some chest pressure. There may be some baseline chest pressure, pains per report.? ESRD with history of dialysis. At time of arrival system in down time and have limited information available. Information is also difficult to obtain from Mr. Mackay.? Is initially rather disagreeable.? Quite hard of hearing.? Slurring his words as well at baseline notes chronic left leg discomfort.? Denies chest pain currently.? He says that he just has no zip anymore.? Wondering if there is a medicine that can help him eat. ?Has been a little short of breath. Discussed with spouse in waiting room events of this last week.? Following dialysis on Thursday she was getting in from the car and he became briefly unresponsive.? Spontaneously recovered.? Did have dialysis this last day receiving dialysis Thursday.? Today now very early on Thursday morning.? Apparently did not complete dialysis run on Thursday going a little less than half as just was not feeling well.? There was another episode where was briefly or nearly unresponsive.? This evening was particularly restless.? As usual complaining of itchiness.? Have tried various products and continues to scratch scalp and elsewhere.? Does have persistent left leg discomfort.? Sounds like this is typically about the upper thigh/groin area. There has been a fluid collection or hematoma that has resolved over time. Mr. Mackay tells me about recent amputation of his left great toe.? He does have some a discomfort/pain and restlessness in the left leg in particular.? This was aggravating in particular tonight and spouse was trying to rub his leg to help him feel better.? It also been having some headache and he was rubbing his temples. Was resting and she saw that a he seem to be about to become unresponsive again; sort of fades off.? When he began to complain at some point of some more chest tightness she felt that it was time to call for some help.? She is struggling with care for him in general; is lot a work.? Does take midodrine for blood pressure support chronically.? Has not had much to to drink today.? Again ?in the last day dialysis was cut short.? Does struggle to get him to eat ?have to force him to eat?.? She understands that this and the itching is likely related to dialysis. ?Does have productive cough but it does not sound as though this is new with history of asbestosis. Related Data Home Medications ?Medication ?Instructions ?Recorded ?Confirmed acetaminophen 650 mg 650 mg PO Q8H PRN 12/27/22 01/19/25 tablet,extended release (Tylenol Arthritis Pain) aspirin 81 mg capsule 81 mg PO DAILY 12/27/22 01/19/25 coenzyme Q10 100 mg capsule (Co 100 mg PO DAILY 12/27/22 01/19/25 Q-10) guaifenesin 100 mg/5 mL oral liquid 100 mg PO Q4H PRN coughing 12/27/22 01/19/25 insulin aspart U-100 100 unit/mL 5 unit subcut TIDWM 12/27/22 01/19/25 (3 mL) subcutaneous pen (Novolog FlexPen U-100 Insulin aspart) loratadine 10 mg tablet (Claritin) 10 mg PO DAILY 12/27/22 01/19/25 montelukast 10 mg tablet 10 mg PO HS 12/27/22 01/19/25 (Singulair) nitroglycerin 0.4 mg sublingual 0.4 mg sublingual Q5M PRN 12/27/22 01/19/25 tablet (Nitrostat) sennosides 8.6 mg capsule (senna) 8.6 - 17.2 mg PO BID 12/27/22 01/19/25 B complex 11-folic acid 1 mg-C 100 1 tab PO BID 10/06/23 01/19/25 mg-biotin 300 mcg-zinc 50 mg tablet (Dialyvite) albuterol sulfate 90 mcg/actuation 2 inh inhalation Q4H PRN 10/06/23 01/19/25 aerosol inhaler (Ventolin HFA) cholecalciferol (vitamin D3) 50 50 mcg PO DAILY 10/06/23 01/19/25 mcg (2,000 unit) capsule cyclosporine 0.05 % eye drops in a 1 drp ophthalmic (eye) Q12H 10/06/23 01/19/25 dropperette (Restasis) fluticasone propionate 50 1 spray intranasal DAILY PRN 04/30/24 08/14/25 mcg/actuation nasal spray,suspension (24 Hour Allergy Relief) insulin glargine 100 unit/mL (3 18 unit subcut HS 10/06/23 01/19/25 mL) subcutaneous pen (Lantus Solostar U-100 Insulin) krill 1,000 mg-omega-3 230 mg-dha 1 cap PO DAILY 10/06/23 01/19/25 60 vn-lto-ngltekagc-astaxan capsule (MegaRed [place]-3 Krill Oil) pantoprazole 40 mg tablet,delayed 40 mg PO DAILY 10/06/23 01/19/25 release pravastatin 80 mg tablet 80 mg PO HS 10/06/23 01/19/25 vitamin E 268 mg (400 unit) capsule 268 mg PO DAILY 10/06/23 01/19/25 clopidogrel 75 mg tablet 75 mg PO DAILY 05/24/24 01/19/25 diphenhydramine HCl 25 mg capsule 25 mg PO Q4H PRN 05/24/24 01/19/25 (Aler-Cap) fluticasone 100 mcg-salmeterol 50 1 inh inhalation BID 05/24/24 01/19/25 mcg/dose blistr powdr for inhalation (Wixela Inhub) hydrocortisone 2.5 % topical cream 1 applic topical BID PRN 05/24/24 01/19/25 levothyroxine 175 mcg capsule 175 mcg PO DAILY 05/24/24 01/19/25 magnesium hydroxide 400 mg/5 mL 30 ml PO DAILY PRN 05/24/24 01/19/25 oral suspension (Dulcolax (magnesium hydroxide)) methyl salicylate 15 %-menthol 10 1 applic topical TID PRN 05/24/24 01/19/25 % topical cream (Analgesic Sprakers (m.salic-menthol)) tiotropium bromide 18 mcg capsule 1 cap inhalation DAILY 05/24/24 01/19/25 with inhalation device (Spiriva with HandiHaler) midodrine 10 mg tablet 10 mg PO DAILY 07/12/24 01/19/25 Previous Rx's ?Medication ?Instructions ?Recorded prednisone 20 mg tablet 20 mg PO DAILY #7 tabs 07/05/24 clindamycin HCl 300 mg capsule 300 mg PO Q6H #40 caps 01/19/25 levofloxacin 250 mg tablet 250 mg PO DAILY 10 days #11 tabs 01/19/25 Allergies Allergy/AdvReac Type Severity Reaction Status Date / Time doxycycline Allergy Unknown Verified 01/19/25 16:57 atorvastatin (From Lipitor) Allergy Verified 01/19/25 16:57 hydrocodone Allergy Verified 01/19/25 16:57 lisinopril Allergy Verified 01/19/25 16:57 metoclopramide (From Reglan) Allergy Verified 01/19/25 16:57 omeprazole Allergy Verified 01/19/25 16:57 diphenhydramine AdvReac Unknown Agitated Verified 01/19/25 16:57 Review of Systems Status of ROS: Reports: 6 or more systems reviewed and unremarkable except as noted in History and below [facility] Medical History Frailty syndrome in geriatric patient ?R54 - Age-related physical debility (ICD-10) Coronary artery disease ?I25.10 - Atherosclerotic heart disease of [place] coronary artery without angina pectoris (ICD-10) Recurrent UTI ?N39.0 - Urinary tract infection, site not specified (ICD-10) Secondary hyperparathyroidism (of renal origin) ?N25.81 - Secondary hyperparathyroidism of renal origin (ICD-10) Pneumonia due to COVID-19 virus ?U07.1 - COVID-19 (ICD-10) ?J12.82 - Pneumonia due to coronavirus disease 2019 (ICD-10) Severe obesity ?E66.01 - Morbid (severe) obesity due to excess calories (ICD-10) Mobitz type 1 second degree AV block ?I44.1 - Atrioventricular block, second degree (ICD-10) Calculus of gallbladder without cholecystitis ?K80.20 - Calculus of gallbladder without cholecystitis without obstruction (ICD-10) Anemia of chronic renal failure ?N18.9 - Chronic kidney disease, unspecified (ICD-10) ?D63.1 - Anemia in chronic kidney disease (ICD-10) Allergic rhinitis ?J30.9 - Allergic rhinitis, unspecified (ICD-10) DVT (deep venous thrombosis) ?I82.409 - Acute embolism and thrombosis of unspecified deep veins of unspecified lower extremity (ICD-10) Hypothyroidism ?E03.9 - Hypothyroidism, unspecified (ICD-10) Pulmonary emphysema ?J43.9 - Emphysema, unspecified (ICD-10) Obstructive sleep apnea ?G47.33 - Obstructive sleep apnea (adult) (pediatric) (ICD-10) Colon polyp ?K63.5 - Polyp of colon (ICD-10) Detached retina, left ?H33.22 - Serous retinal detachment, left eye (ICD-10) GERD with esophagitis ?K21.00 - Gastro-esophageal reflux disease with esophagitis, without bleeding (ICD-10) Hypertension ?I10 - Essential (primary) hypertension (ICD-10) Diabetic foot ulcer ?E11.621 - Type 2 diabetes mellitus with foot ulcer (ICD-10) ?L97.509 - Non-pressure chronic ulcer of other part of unspecified foot with unspecified severity (ICD-10) Charcot foot due to diabetes mellitus ?E11.610 - Type 2 diabetes mellitus with diabetic neuropathic arthropathy (ICD-10) Pulmonary asbestosis ?J61 - Pneumoconiosis due to asbestos and other mineral fibers (ICD-10) Myocardial infarction ?I21.9 - Acute myocardial infarction, unspecified (ICD-10) Hypercholesterolemia ?E78.00 - Pure hypercholesterolemia, unspecified (ICD-10) End stage renal disease on dialysis ?N18.6 - End stage renal disease (ICD-10) ?Z99.2 - Dependence on renal dialysis (ICD-10) DM (diabetes mellitus), type 2 ?E11.9 - Type 2 diabetes mellitus without complications (ICD-10) COPD (chronic obstructive pulmonary disease) ?J44.9 - Chronic obstructive pulmonary disease, unspecified (ICD-10) Surgical History S/P ORIF (open reduction internal fixation) fracture ?Z98.890 - Other specified postprocedural states (ICD-10) ?Z87.81 - Personal history of (healed) traumatic fracture (ICD-10) S/P CABG x 4 ?Z95.1 - Presence of aortocoronary bypass graft (ICD-10) Family History Brother Leukemia Mother Oral cancer Father Alzheimers disease Social History Narrative: 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 What is your current living situation?: I presently have a place to live Problems where you live: no known problems Problems where you live details: n/a In the past 12 months, utilities in danger of being shut off: no In past 12 months, lack of transportation kept you from medical appts, meetings, work, or getting things needed for daily living: no In the past 12 mos, have been you worried that your food would run out before you had money to buy more?: never true In the past 12 mos, the food you bought just didn't last and you didn't have money to buy more?: never true Smoking Status: Former smoker Do you use any of these nicotine containing products: None Second hand tobacco smoke exposure: No How often do you have a drink containing alcohol: 2-4 times a month How often do you have six or more drinks on one occasion: Never AUDIT-C Alcohol total score: 2 Non-prescribed substance use: denies use Non-prescribed substance use details: Uses CBD liquid for pain and itching How often does anyone, including family, friends and others, physically hurt you: never How often does anyone, including family, friends and others, insult or talk down to you: never How often does anyone, including family, friends and others, threaten you with harm: never How often does anyone, including family, friends and others, scream or curse at you: never service: No Exam Narrative: Exam Narrative: Breathing easily. Very hard of hearing complicating care. No hearing aids in. Heart in regular rate and rhythm. Lungs appear clear. Well-healed midline surgical incision over his chest. No reproduction of pain to palpation over the chest. Evidence of excoriation is on torso and in scalp.? There is some erythema at the right elbow but does not appear to have any discomfort here.? Lower extremities showing dressing applied over the left foot with the postop sandal.? I removed this gauze and there is a clean base ulceration healing by secondary intention at the base of the left great toe.? Iodoform gauze is applied here. Band-Aid also on the left rosas and right. Very prominent dialysis shunt visible, palpable left arm. Skin is without unusual swelling or evidence of bleeding at this time. Palpable 5 cm firm swelling in the left calf consistent with old hematoma. Const: Vital Signs, click to edit/add: Vital Signs - 24 hr 03/19/25 01:13 03/19/25 02:09 03/19/25 03:24 Temperature 97.2 F L Pulse Rate Pulse Rate [Left P ulse Oximeter] 85 70 Pulse Rate [orthos tatic lying Left P ulse Oximeter] 70 Pulse Rate [orthos tatic sitting Left Pulse Oximeter] 73 Pulse Rate [orthos tatic standing Lef t Pulse Oximeter] 93 Respiratory Rate 16 16 Blood Pressure Blood Pressure [Ri ght Arm] 108/53 L Blood Pressure [Ri ght Upper Arm] 106/57 L 101/54 L Blood Pressure [or thostatic sitting Right Arm] 93/50 L Blood Pressure [or thostatic standing Right Arm] 93/35 L Pulse Oximetry 99 98 Oxygen Delivery Me thod Room Air Room Air 03/19/25 03:27 03/19/25 03:31 03/19/25 04:01 Temperature Pulse Rate 69 72 72 Pulse Rate [Left P ulse Oximeter] Pulse Rate [orthos tatic lying Left P ulse Oximeter] Pulse Rate [orthos tatic sitting Left Pulse Oximeter] Pulse Rate [orthos tatic standing Lef t Pulse Oximeter] Respiratory Rate Blood Pressure 110/72 Blood Pressure [Ri ght Arm] Blood Pressure [Ri ght Upper Arm] Blood Pressure [or thostatic sitting Right Arm] Blood Pressure [or thostatic standing Right Arm] Pulse Oximetry 98 98 97 Oxygen Delivery Me thod 03/19/25 04:02 03/19/25 05:02 03/19/25 06:01 Temperature Pulse Rate 72 Pulse Rate [Left P ulse Oximeter] Pulse Rate [orthos tatic lying Left P ulse Oximeter] Pulse Rate [orthos tatic sitting Left Pulse Oximeter] Pulse Rate [orthos tatic standing Lef t Pulse Oximeter] Respiratory Rate Blood Pressure 111/58 L 100/50 L Blood Pressure [Ri ght Arm] Blood Pressure [Ri ght Upper Arm] Blood Pressure [or thostatic sitting Right Arm] Blood Pressure [or thostatic standing Right Arm] Pulse Oximetry 97 Oxygen Delivery Me thod Documenting provider has reviewed patient's vital signs: yes Course Vital Signs Vital signs: Initial Vital Signs Temperature 97.2 F L 03/19/25 01:13 Temperature Source Temporal Artery Scan 03/19/25 01:13 Pulse Rate 85 03/19/25 01:13 Pulse Rhythm Regular 03/19/25 01:13 Respiratory Rate 16 03/19/25 01:13 Blood Pressure 106/57 L 10/12/25 01:13 Blood Pressure Mean 73 03/19/25 01:13 Blood Pressure Position Semi-Fowlers 03/19/25 01:13 Pulse Oximetry 99 03/19/25 01:13 Oxygen Delivery Method Room Air 03/19/25 01:13 Vital Signs Temperature 97.2 F L 03/19/25 01:13 Pulse Rate 85 03/19/25 01:13 Respiratory Rate 16 03/19/25 01:13 Blood Pressure 106/57 L 03/19/25 01:13 Pulse Oximetry 99 03/19/25 01:13 Oxygen Delivery Method Room Air 03/19/25 01:13 Temperature 97.2 F L 03/19/25 01:13 Pulse Rate 72 03/19/25 04:02 Respiratory Rate 16 03/19/25 03:24 Blood Pressure 100/50 L 03/19/25 06:01 Pulse Oximetry 97 03/19/25 04:02 Oxygen Delivery Method Room Air 03/19/25 03:24 Medications Administered Medications: Discontinued Medications Generic Name Dose Route Start Last Admin Trade Name Christianq PRN Reason Stop Dose Admin Sodium Chloride 500 mls @ 500 mls/hr 03/19/25 03:08 03/19/25 04:23 0.9 % Sodium Chloride 500 Ml IV 03/19/25 04:07 Infused .Q1H ONE Infusion Medical Decision Making MDM Narrative Medical decision making narrative: Will place on monitoring coordinator and oximetry. I am not sure there is much new here. However his primary complaint is fatigue. Standard labs. Did check orthostatics. As best we can manage these are normal although pulse does increase by 23 points from lying to standing. With these brief syncopal or near syncopal episodes will also screen with head CT. I think would benefit from a little bit of fluids. Did order for 500 mL bolus of normal saline. Labs return with sodium 121 and hemoglobin of 7.6. Potassium is 5.6 Puzzling as spouse as reporting normal labs day ago. He has been constipated but no unusually dark stools. Two months ago hemoglobin was 11.4. Did have anemia and it sounds like was transferred in mid May 2024 INDICATION: Cough, chest pain. TECHNIQUE: Chest 1 view. COMPARISON: 07/05/2024. FINDINGS: Cardiovascular and mediastinum: Stable cardiomegaly. Median sternotomy and right-sided cardiac conduction device, unchanged. Lungs and pleural spaces: Bilateral calcified granulomas, unchanged. Left retrocardiac opacities. No pneumothorax. Bones and soft tissues: Degenerative changes of the spine and shoulders. IMPRESSION: Left retrocardiac opacities, which may represent atelectasis, infiltrates, and/or effusion. Dictated by Jey Sanchez MD @ 03/19/2025 3:13:40 AM INDICATION: Syncope. TECHNIQUE: CT head without contrast. COMPARISON: 07/05/2024. FINDINGS: CSF spaces: Proportionate prominence of the ventricles and sulci, reflecting moderate diffuse parenchymal volume loss. Brain parenchyma: The spicer-white differentiation is maintained. Patchy white matter low attenuation changes, nonspecific but likely reflecting chronic small vessel ischemic disease. No evidence of intracranial hemorrhage, extra-axial collection, or midline shift. Atherosclerotic calcifications of the cavernous carotids and carotid siphons. Skull base and calvarium: The visualized paranasal sinuses and mastoid air cells demonstrate no acute or significant findings. Bilateral lens thinning. No skull fractures. IMPRESSION: No acute intracranial abnormality. Please note that all CT scans at this facility use dose modulation, iterative reconstruction, and/or weight-based dosing when appropriate to reduce radiation dose to as low as reasonably achievable. Dictated by Jey Sanchez MD @ 03/19/2025 3:16:18 AM Evidently has just coughed up a bloody clot Markedly elevated BNP is chronic. I do not think that he is in heart failure exacerbation/fluid overloaded at this time. Has remained vitally well on monitoring Did discuss with hospitalist at [facility]. We do not have dialysis here. Cannot I think replace/normalize sodium and hemoglobin without available dialysis. He is accepted pending repeat labs. I had checked prior with lab noting quality sample. Reviewed labs are consistent with receiving 0.5 L of normal saline another blood draws perhaps. Essentially the same Just prior to ambulance transport Mr. Codie perdomo is absolutely insistent that he will not accept ambulance transport. It is uncomfortable he says. A ?lumbar wagon?. Will sign AMA Medical Records Medical records reviewed: Yes I reviewed the patient's medical records Lab Data Lab results reviewed: Yes I reviewed the patient's lab results Labs: Lab Results 03/19/25 03/19/25 03/19/25 Range/Units 02:43 03:20 04:54 WBC 7.12 (4.50-11.00) K/uL RBC 2.48 L (4.30-5.90) m/uL Hgb 7.6 L* (13.5-17.5) gm/dL Hct 22.8 L (37.0-53.0) % MCV 92 (80-100) fL MCH 31 (26-34) pg MCHC 33 (32-36) gm/dL RDW Coeff of Jordy 17.0 H (11.5-15.5) % Plt Count 162 (140-440) K/uL Neut % (Auto) 81.4 H (42.0-72.0) % Lymph % (Auto) 7.4 L (20-44) % [place] % (Auto) 9.1 (0.0-11.0) % Eos % (Auto) 1.4 (0.0-7.0) % Baso % (Auto) 0.6 (0.0-3.0) % Neut # (Auto) 5.80 (1.7-7.0) K/uL Lymph # (Auto) 0.50 L (0.90-2.90) K/uL [place] # (Auto) 0.60 (0.00-0.90) K/UL Eos # (Auto) 0.10 (0.00-0.50) K/uL Baso # (Auto) 0.04 (0.00-0.30) K/uL Abs Immat Gran (auto) 0.01 (0.00-0.30) K/uL Imm/Tot Granulo (auto) 0.1 % INR 1.09 (0.91-1.10) APTT 40 H (23-33) Seconds Sodium 121 L* (135-149) mmol/L Potassium 5.6 H (3.6-5.1) mmol/L Chloride 91 L (96-114) mmol/L Carbon Dioxide 17 L (20-32) mmol/L Anion Gap 13 (7-15) mEq/L BUN 120 H (7-30) mg/dL Creatinine 5.9 H (0.5-1.5) mg/dL Estimated Creat Clear 9.68 Estimated GFR 9 ml/min Glucose 144 H (60-115) mg/dL Calcium 9.0 (8.4-10.6) mg/dL Total Bilirubin 0.5 (0.1-1.5) mg/dL Direct Bilirubin 0.5 (0.0-0.5) mg/dL AST 29 (12-35) U/L ALT 29 (4-50) U/L Alkaline Phosphatase 103 (40-150) U/L Troponin I < 0.01 (0.01-0.04) ng/mL C-Reactive Protein 1.5 H (0.5-1.0) mg/dL NT-Pro-B Natriuret Pep 49240 H (See Note) pg/mL Total Protein 6.8 (6.0-8.3) g/dL Albumin 3.5 (3.3-5.0) g/dL SARS-CoV-2 (PCR) Negative SARS-CoV-2 (Negative) Influenza Type A (PCR) Negative PCR FLU A (Negative) Influenza Type B (PCR) Negative PCR FLU B (Negative) RSV (PCR) Negative PCR RSV (Negative) Lab Acknowledgement New Spec Needed A 03/19/25 Range/Units 05:32 WBC (4.50-11.00) K/uL RBC (4.30-5.90) m/uL Hgb 7.4 L* (13.5-17.5) gm/dL Hct (37.0-53.0) % MCV (80-100) fL MCH (26-34) pg MCHC (32-36) gm/dL RDW Coeff of Jordy (11.5-15.5) % Plt Count (140-440) K/uL Neut % (Auto) (42.0-72.0) % Lymph % (Auto) (20-44) % [place] % (Auto) (0.0-11.0) % Eos % (Auto) (0.0-7.0) % Baso % (Auto) (0.0-3.0) % Neut # (Auto) (1.7-7.0) K/uL Lymph # (Auto) (0.90-2.90) K/uL [place] # (Auto) (0.00-0.90) K/UL Eos # (Auto) (0.00-0.50) K/uL Baso # (Auto) (0.00-0.30) K/uL Abs Immat Gran (auto) (0.00-0.30) K/uL Imm/Tot Granulo (auto) % INR (0.91-1.10) APTT (23-33) Seconds Sodium 122 L* (135-149) mmol/L Potassium 5.4 H (3.6-5.1) mmol/L Chloride 90 L (96-114) mmol/L Carbon Dioxide 19 L (20-32) mmol/L Anion Gap 13 (7-15) mEq/L BUN 127 H (7-30) mg/dL Creatinine 5.9 H (0.5-1.5) mg/dL Estimated Creat Clear 9.68 Estimated GFR 9 ml/min Glucose 132 H (60-115) mg/dL Calcium 9.0 (8.4-10.6) mg/dL Total Bilirubin (0.1-1.5) mg/dL Direct Bilirubin (0.0-0.5) mg/dL AST (12-35) U/L ALT (4-50) U/L Alkaline Phosphatase (40-150) U/L Troponin I (0.01-0.04) ng/mL C-Reactive Protein (0.5-1.0) mg/dL NT-Pro-B Natriuret Pep (See Note) pg/mL Total Protein (6.0-8.3) g/dL Albumin (3.3-5.0) g/dL SARS-CoV-2 (PCR) (Negative) Influenza Type A (PCR) (Negative) Influenza Type B (PCR) (Negative) RSV (PCR) (Negative) Lab Acknowledgement ECG Data Attestation: I personally reviewed and interpreted this ECG as follows: (Ventricular paced rhythm at a rate of 82. Normal T-waves.) Discharge Plan Discharge Clinical Impression: Hyponatremia, Anemia, Fatigue, End stage renal disease Patient Disposition: [facility] Discharge Location: [facility] Condition: Stable
--- NOTE | 2025-03-19 04:58 | ED.NURSE ---
pt coughed up bloody sputum. per , it is normally clear. MD informed.
[2025-03-19 05:22] LABS: Lab Add On Test New Spec Needed
[2025-03-19 05:55] LABS: Hemoglobin* 7.4 gm/dL (13.5-17.5)
[2025-03-19 05:56] LABS: Chloride* 90 mmol/L (96-114); Potassium* 5.4 mmol/L (3.6-5.1)
[2025-03-19 05:59] LABS: Anion Gap 13 mEq/L (7-15); Carbon Dioxide* 19 mmol/L (20-32); Creatinine* 5.9 mg/dL (0.5-1.5); Est. Creatinine Clearance* 9.68; Estimated Glomerular Filt Rate 9 ml/min
[2025-03-19 06:00] LABS: Calcium* 9.0 mg/dL (8.4-10.6); Glucose* 132 mg/dL (60-115)
[2025-03-19 06:00] LABS: INR 1.09 (0.91-1.10); Prothrombin Time 14.9 Seconds
[2025-03-19 06:07] LABS: Blood Urea Nitrogen* 127 mg/dL (7-30); Sodium* 122 mmol/L (135-149)
--- NOTE | 2025-03-19 06:18 | ED.NURSE ---
Rn to Rn report given. FRANCIA Mac at [facility] of pt arrival. Unit room 2520. [phone]
--- NOTE | 2025-03-19 07:15 | ED.NURSE ---
pt requesting to go to [place] via private vehicle. AMA for signed for transport by instead of EMS. [place] contacted and informed of pt arrival by in personal car.
== END 2025-03-19 07:18 | disposition short-term general hospital (02) ==
PROVIDERS: Emergency Provider Family Medicine; PCP Family Medicine
DX: E87.1 Hypo-osmolality and hyponatremia (principal); D64.9 Anemia, unspecified; R53.83 Other fatigue; N18.6 End stage renal disease; R06.02 Shortness of breath
CPT/HCPCS: 36415; 70450; 71045; 80048; 80053; 80076; 83880; 84484; 85018; 85025; 85610; 85730; 86140; 87631; 96360; 99284; 99285; J7030